=== PATIENT | female | born 1955 | race Caucasian/White ===

== ENCOUNTER → 2022-11-24 | Outpatient (REF) | payer MEDICARE, MEDICAID, SELFPAY ==
[2022-11-24 11:18] LABS: Hematocrit 31.5 % (37-47); Hemoglobin 10.1 g/dL (12.0-15.0); Mean Corp Hgb Conc 32.1 g/dL (32-36); Mean Corpuscular Hgb 29.4 pg (27.0-32.0); Mean Corpuscular Volume 91.6 fL (81-99); Mean Platelet Vol. 9.3 fl (6.2-12.0); Platelet Count 289 K/mm3 (150-450); RBC Distribution Width CV 15.1 % (11.6-14.6); RBC Distribution Width SD 49.4 fl (35.1-43.9); Red Blood Count 3.44 M/mm3 (4.2-5.4); White Blood Count 16.9 K/mm3 (4.4-11.0)
== END ==
LOC: OLS.SANC 10:30
PROVIDERS: Visit Provider Internal Medicine
DX: J44.9 Chronic obstructive pulmonary disease, unspecified (principal); E11.9 Type 2 diabetes mellitus without complications
CPT/HCPCS: 36415; 85027

== ENCOUNTER → 2022-11-27 | Outpatient (REF) | payer MEDICARE, MEDICAID, SELFPAY ==
[2022-11-27 09:17] LABS: Bacteria 0 SEEN /hpf (None Seen); Mucous, Urine 0 SEEN /hpf (<or=2+); Red Blood Cells-Urine 0 SEEN /hpf (0-5); Squamous Epithelial Cells - UA 0 SEEN /hpf (5-10); White Blood Cells 0 SEEN /hpf (0-5)
[2022-11-27 10:04] LABS: Glucose, Dipstick 250 mg/dl (Normal); Ketone-Dipstick Negative (Negative); Leukocyte Esterase-Dipstick Negative /ul (Negative); Nitrite-Dipstick Negative (Negative); Occult Blood-Urine Negative /ul (Negative); Protein-Dipstick 15 mg/dl (Negative); Specific Gravity, Urine 1.015 (1.002-1.030); Urine Bilirubin Dipstick Negative (Negative); Urine Urobilinogen Normal (Normal)
[2022-11-27 10:12] LABS: Color, Urine Yellow (Yellow); Urine Clarity Clear (Clear)
== END ==
LOC: OLS.SANC 04:00
PROVIDERS: Referring Provider Internal Medicine; Visit Provider Internal Medicine
DX: I11.0 Hypertensive heart disease with heart failure (principal); I50.9 Heart failure, unspecified; J44.9 Chronic obstructive pulmonary disease, unspecified; E11.9 Type 2 diabetes mellitus without complications; E78.5 Hyperlipidemia, unspecified; R39.9 Unspecified symptoms and signs involving the genitourinary system
CPT/HCPCS: 81001; 87077; 87086; 87088; 87186

== ENCOUNTER → 2022-11-28 | Outpatient (REF) | payer MEDICARE, MEDICAID, SELFPAY ==
[2022-11-28 09:24] LABS: Hematocrit 33.1 % (37-47); Hemoglobin 10.7 g/dL (12.0-15.0); Mean Corp Hgb Conc 32.3 g/dL (32-36); Mean Corpuscular Hgb 28.7 pg (27.0-32.0); Mean Corpuscular Volume 88.7 fL (81-99); Mean Platelet Vol. 9.8 fl (6.2-12.0); Platelet Count 264 K/mm3 (150-450); RBC Distribution Width CV 15.2 % (11.6-14.6); RBC Distribution Width SD 49.4 fl (35.1-43.9); Red Blood Count 3.73 M/mm3 (4.2-5.4); White Blood Count 12.5 K/mm3 (4.4-11.0)
[2022-11-28 09:48] LABS: ALB/GLOB Ratio 0.8 RATIO (0.9-2.4); AST(SGOT) 12 U/L (15-37); Alanine Aminotransfer ALT/SGPT 23 U/L (13-56); Albumin, Serum 2.5 g/dL (3.2-5.0); Alkaline Phosphatase 59 U/L (45-117); Anion Gap 8 (5-15); BUN 47 mg/dL (7-18); BUN/Creat Ratio 33.6 RATIO (10-20); Calcium,Total 8.4 mg/dL (8.5-10.1); Chloride 107 mmol/L (98-107); EST Glomerular Filtration Rate 40 mL/min (>60); Est Glom Filt Rate - Afr Amer 49 mL/min (>60); Globulin 3.3 g/dL (2.2-4.2); Glucose 219 mg/dL (74-106); Potassium 4.7 mmol/L (3.5-5.1); Protein, Total 5.8 g/dL (6.4-8.2); Sodium Level 142 mmol/L (136-145); Thyroid Stim Hormone (TSH) 1.48 uIU/mL (0.358-3.74)
== END ==
LOC: OLS.SANC 08:10
PROVIDERS: Visit Provider Internal Medicine
DX: R39.9 Unspecified symptoms and signs involving the genitourinary system (principal); I11.0 Hypertensive heart disease with heart failure; I50.9 Heart failure, unspecified; J44.9 Chronic obstructive pulmonary disease, unspecified; E11.9 Type 2 diabetes mellitus without complications; E78.5 Hyperlipidemia, unspecified
CPT/HCPCS: 36415; 80053; 84443; 85027

== ENCOUNTER → 2022-12-05 | Outpatient (REF) | payer MEDICARE, MEDICAID, SELFPAY ==
[2022-12-05 09:41] LABS: Hematocrit 32.9 % (37-47); Hemoglobin 10.1 g/dL (12.0-15.0); Mean Corp Hgb Conc 30.7 g/dL (32-36); Mean Corpuscular Hgb 29.3 pg (27.0-32.0); Mean Corpuscular Volume 95.4 fL (81-99); Mean Platelet Vol. 8.4 fl (6.2-12.0); Platelet Count 299 K/mm3 (150-450); RBC Distribution Width CV 16.4 % (11.6-14.6); RBC Distribution Width SD 57.4 fl (35.1-43.9); Red Blood Count 3.45 M/mm3 (4.2-5.4); White Blood Count 9.9 K/mm3 (4.4-11.0)
[2022-12-05 09:45] LABS: Anion Gap 5 (5-15); BUN 48 mg/dL (7-18); BUN/Creat Ratio 33.8 RATIO (10-20); Calcium,Total 8.2 mg/dL (8.5-10.1); Chloride 107 mmol/L (98-107); Creatinine, Serum 1.42 mg/dL (0.55-1.02); EST Glomerular Filtration Rate 39 mL/min (>60); Est Glom Filt Rate - Afr Amer 48 mL/min (>60); Glucose 133 mg/dL (74-106); Potassium 4.4 mmol/L (3.5-5.1); Sodium Level 143 mmol/L (136-145)
== END ==
LOC: OLS.SANC 05:00
PROVIDERS: Visit Provider Internal Medicine
DX: I11.0 Hypertensive heart disease with heart failure (principal); I50.9 Heart failure, unspecified; J44.9 Chronic obstructive pulmonary disease, unspecified; E11.9 Type 2 diabetes mellitus without complications; E78.5 Hyperlipidemia, unspecified
CPT/HCPCS: 36415; 80048; 85027

== ENCOUNTER → 2022-12-25 | Outpatient (REF) | payer MEDICARE, MEDICAID, SELFPAY ==
[2022-12-26 08:19] LABS: Bacteria 0 SEEN /hpf (None Seen); Mucous, Urine 0 SEEN /hpf (<or=2+); Red Blood Cells-Urine 0 SEEN /hpf (0-5); Squamous Epithelial Cells - UA 0 SEEN /hpf (5-10); White Blood Cells 0 SEEN /hpf (0-5)
[2022-12-26 08:51] LABS: Color, Urine Yellow (Yellow); Glucose, Dipstick Normal (Normal); Ketone-Dipstick Negative (Negative); Leukocyte Esterase-Dipstick Negative /ul (Negative); Nitrite-Dipstick Negative (Negative); Occult Blood-Urine Negative /ul (Negative); Protein-Dipstick 15 mg/dl (Negative); Urine Bilirubin Dipstick Negative (Negative); Urine Clarity Sl. Cloudy (Clear); Urine Urobilinogen Normal (Normal)
== END ==
LOC: OLS.SANC 11:25
PROVIDERS: Visit Provider Internal Medicine
DX: I11.0 Hypertensive heart disease with heart failure (principal); I50.9 Heart failure, unspecified; E11.9 Type 2 diabetes mellitus without complications; E78.5 Hyperlipidemia, unspecified; R39.89 Other symptoms and signs involving the genitourinary system
CPT/HCPCS: 81001

== ENCOUNTER → 2023-01-02 | Outpatient (REF) | payer MEDICARE, MEDICAID, SELFPAY ==
[2023-01-02 09:57] LABS: Hematocrit 30.3 % (37-47); Hemoglobin 9.4 g/dL (12.0-15.0); Mean Corpuscular Hgb 29.8 pg (27.0-32.0); Mean Corpuscular Volume 96.2 fL (81-99); Mean Platelet Vol. 9.2 fl (6.2-12.0); Platelet Count 286 K/mm3 (150-450); RBC Distribution Width CV 16.4 % (11.6-14.6); RBC Distribution Width SD 57.6 fl (35.1-43.9); Red Blood Count 3.15 M/mm3 (4.2-5.4)
== END ==
LOC: OLS.SANC 05:00
PROVIDERS: Visit Provider Internal Medicine
DX: I11.0 Hypertensive heart disease with heart failure (principal); I50.9 Heart failure, unspecified; J44.9 Chronic obstructive pulmonary disease, unspecified; E11.9 Type 2 diabetes mellitus without complications; E78.5 Hyperlipidemia, unspecified
CPT/HCPCS: 36415; 85027

== ENCOUNTER → 2023-01-05 | Outpatient (REF) | payer MEDICARE, MEDICAID, SELFPAY ==
[2023-01-05 08:34] LABS: Anion Gap 8 (5-15); BUN 41 mg/dL (7-18); BUN/Creat Ratio 29.9 RATIO (10-20); Calcium,Total 8.8 mg/dL (8.5-10.1); Chloride 103 mmol/L (98-107); Creatinine, Serum 1.37 mg/dL (0.55-1.02); EST Glomerular Filtration Rate 41 mL/min (>60); Est Glom Filt Rate - Afr Amer 50 mL/min (>60); Glucose 87 mg/dL (74-106); Potassium 4.5 mmol/L (3.5-5.1); Sodium Level 142 mmol/L (136-145)
== END ==
LOC: OLS.SANC 05:00
PROVIDERS: Visit Provider Internal Medicine
DX: I11.0 Hypertensive heart disease with heart failure (principal); I50.9 Heart failure, unspecified; J44.9 Chronic obstructive pulmonary disease, unspecified; E11.9 Type 2 diabetes mellitus without complications; E78.5 Hyperlipidemia, unspecified
CPT/HCPCS: 80048

== ENCOUNTER → 2023-01-10 | Outpatient (REF) | payer MEDICARE, MEDICAID, SELFPAY ==
[2023-01-10 08:09] LABS: Hematocrit 28.3 % (37-47); Hemoglobin 8.9 g/dL (12.0-15.0); Mean Corp Hgb Conc 31.4 g/dL (32-36); Mean Corpuscular Hgb 28.9 pg (27.0-32.0); Mean Corpuscular Volume 91.9 fL (81-99); Mean Platelet Vol. 8.9 fl (6.2-12.0); Platelet Count 286 K/mm3 (150-450); RBC Distribution Width CV 15.6 % (11.6-14.6); RBC Distribution Width SD 51.8 fl (35.1-43.9); Red Blood Count 3.08 M/mm3 (4.2-5.4); White Blood Count 7.7 K/mm3 (4.4-11.0)
[2023-01-10 08:31] LABS: Anion Gap 8 (5-15); BUN 31 mg/dL (7-18); BUN/Creat Ratio 23.5 RATIO (10-20); Calcium,Total 8.6 mg/dL (8.5-10.1); Chloride 103 mmol/L (98-107); Creatinine, Serum 1.32 mg/dL (0.55-1.02); EST Glomerular Filtration Rate 43 mL/min (>60); Est Glom Filt Rate - Afr Amer 52 mL/min (>60); Glucose 98 mg/dL (74-106); Potassium 4.2 mmol/L (3.5-5.1); Sodium Level 145 mmol/L (136-145)
== END ==
LOC: OLS.SANC 05:00
PROVIDERS: Visit Provider Internal Medicine
DX: I11.0 Hypertensive heart disease with heart failure (principal); I50.9 Heart failure, unspecified; J44.9 Chronic obstructive pulmonary disease, unspecified; E78.5 Hyperlipidemia, unspecified; E11.9 Type 2 diabetes mellitus without complications
CPT/HCPCS: 36415; 80048; 85027

== ENCOUNTER → 2023-01-17 | Outpatient (REF) | payer MEDICARE, MEDICAID, SELFPAY ==
[2023-01-17 09:57] LABS: Anion Gap 8 (5-15); BUN 24 mg/dL (7-18); Calcium,Total 8.6 mg/dL (8.5-10.1); Chloride 106 mmol/L (98-107); Creatinine, Serum 1.33 mg/dL (0.55-1.02); EST Glomerular Filtration Rate 43 mL/min (>60); Est Glom Filt Rate - Afr Amer 51 mL/min (>60); Glucose 131 mg/dL (74-106); Potassium 4.7 mmol/L (3.5-5.1); Sodium Level 142 mmol/L (136-145)
[2023-01-18 08:59] LABS: Hemoglobin 8.9 g/dL (12.0-15.0); Mean Corp Hgb Conc 29.7 g/dL (32-36); Mean Corpuscular Hgb 28.1 pg (27.0-32.0); Mean Corpuscular Volume 94.6 fL (81-99); Mean Platelet Vol. 9.6 fl (6.2-12.0); POSITIVE COUNT YES; POSITIVE MORPHOLOGY YES; Platelet Count 236 K/mm3 (150-450); RBC Distribution Width CV 15.9 % (11.6-14.6); RBC Distribution Width SD 55.1 fl (35.1-43.9); Red Blood Count 3.17 M/mm3 (4.2-5.4); White Blood Count 7.7 K/mm3 (4.4-11.0)
[2023-01-18 09:15] LABS: Differential Indicated MANUAL DIFF
[2023-01-18 09:39] LABS: Eosinophil 6 % (0-5); Lymphocyte 35 % (19-41); Monocyte 3 % (0-10); Neutrophil-Band 1 % (0-5); Neutrophil-Segmented 54 % (47-70); Plasma Cell 1 %; Total Cells Counted 100 (MANUAL DIFF)
[2023-01-18 09:40] LABS: Absolute Neutrophil Count 4.2 X10^3/uL (2.0-7.7); Neutrophil # 4.23 X10^3/uL (2.7-7.7); Platelet Estimate ADEQUATE (ADEQ); Red Cell Morphology NORM C+C NORMAL (NORM C&C)
[2023-01-18 09:41] LABS: Absolute Lymphocyte Count 2.69 X10^3/uL (0.83-4.51); Lymphocyte # 2.69 X10^3/ul (0.83-4.51)
[2023-01-19 09:36] LABS: Pathologist Review Reviewed
== END ==
LOC: OLS.SANC 05:00
PROVIDERS: Visit Provider Internal Medicine
DX: I10 Essential (primary) hypertension (principal)
CPT/HCPCS: 36415; 80048; 85025

== ENCOUNTER → 2023-01-26 | Outpatient (REF) | payer MEDICARE, MEDICAID, SELFPAY ==
[2023-01-26 07:56] LABS: Hematocrit 29.8 % (37-47); Hemoglobin 9.5 g/dL (12.0-15.0); Mean Corp Hgb Conc 31.9 g/dL (32-36); Mean Corpuscular Hgb 27.7 pg (27.0-32.0); Mean Corpuscular Volume 86.9 fL (81-99); Mean Platelet Vol. 11.1 fl (6.2-12.0); Platelet Count 298 K/mm3 (150-450); RBC Distribution Width CV 16.9 % (11.6-14.6); RBC Distribution Width SD 53.3 fl (35.1-43.9); Red Blood Count 3.43 M/mm3 (4.2-5.4); White Blood Count 9.9 K/mm3 (4.4-11.0)
[2023-01-26 08:02] LABS: Anion Gap 6 (5-15); BUN 26 mg/dL (7-18); Calcium,Total 8.8 mg/dL (8.5-10.1); Chloride 102 mmol/L (98-107); Creatinine, Serum 1.18 mg/dL (0.55-1.02); EST Glomerular Filtration Rate 49 mL/min (>60); Est Glom Filt Rate - Afr Amer 59 mL/min (>60); Glucose 191 mg/dL (74-106); Potassium 4.3 mmol/L (3.5-5.1); Sodium Level 137 mmol/L (136-145)
== END ==
LOC: OLS.SANC 05:00
PROVIDERS: Visit Provider Internal Medicine
DX: I11.0 Hypertensive heart disease with heart failure (principal); I50.9 Heart failure, unspecified; J44.9 Chronic obstructive pulmonary disease, unspecified; E78.5 Hyperlipidemia, unspecified; E11.9 Type 2 diabetes mellitus without complications
CPT/HCPCS: 36415; 80048; 85027

== ENCOUNTER → 2023-02-02 | Outpatient (REF) | payer MEDICARE, MEDICAID, SELFPAY ==
[2023-02-02 08:08] LABS: Hematocrit 27.3 % (37-47); Hemoglobin 10.2 g/dL (12.0-15.0); Mean Corp Hgb Conc 37.4 g/dL (32-36); Mean Corpuscular Hgb 36.4 pg (27.0-32.0); Mean Corpuscular Volume 97.5 fL (81-99); Mean Platelet Vol. 11.3 fl (6.2-12.0); Platelet Count 165 K/mm3 (150-450); RBC Distribution Width CV 16.4 % (11.6-14.6); RBC Distribution Width SD 53.1 fl (35.1-43.9); White Blood Count 7.4 K/mm3 (4.4-11.0)
[2023-02-02 08:25] LABS: Anion Gap 5 (5-15); BUN 33 mg/dL (7-18); BUN/Creat Ratio 27.7 RATIO (10-20); Calcium,Total 8.6 mg/dL (8.5-10.1); Chloride 106 mmol/L (98-107); Creatinine, Serum 1.19 mg/dL (0.55-1.02); EST Glomerular Filtration Rate 48 mL/min (>60); Est Glom Filt Rate - Afr Amer 59 mL/min (>60); Glucose 196 mg/dL (74-106); Potassium 4.6 mmol/L (3.5-5.1); Sodium Level 139 mmol/L (136-145)
== END ==
LOC: OLS.SANC 05:00
PROVIDERS: Visit Provider Internal Medicine
DX: I11.0 Hypertensive heart disease with heart failure (principal); I50.9 Heart failure, unspecified; J44.9 Chronic obstructive pulmonary disease, unspecified; E11.9 Type 2 diabetes mellitus without complications; E78.5 Hyperlipidemia, unspecified
CPT/HCPCS: 36415; 80048; 85027

== ENCOUNTER → 2023-02-19 | Outpatient (REF) | payer MEDICARE, MEDICAID, SELFPAY ==
[2023-02-19 10:27] LABS: Hematocrit 29.6 % (37-47); Hemoglobin 8.4 g/dL (12.0-15.0); Mean Corp Hgb Conc 28.4 g/dL (32-36); Mean Corpuscular Volume 98.7 fL (81-99); Mean Platelet Vol. 8.7 fl (6.2-12.0); Platelet Count 353 K/mm3 (150-450); RBC Distribution Width CV 14.9 % (11.6-14.6); RBC Distribution Width SD 53.8 fl (35.1-43.9); White Blood Count 7.3 K/mm3 (4.4-11.0)
[2023-02-19 10:46] LABS: ALB/GLOB Ratio 0.8 RATIO (0.9-2.4); AST(SGOT) 14 U/L (15-37); Alanine Aminotransfer ALT/SGPT 15 U/L (13-56); Albumin, Serum 2.6 g/dL (3.2-5.0); Alkaline Phosphatase 53 U/L (45-117); Anion Gap 6 (5-15); BUN 17 mg/dL (7-18); BUN/Creat Ratio 12.5 RATIO (10-20); Calcium,Total 8.8 mg/dL (8.5-10.1); Chloride 97 mmol/L (98-107); Creatinine, Serum 1.36 mg/dL (0.55-1.02); EST Glomerular Filtration Rate 41 mL/min (>60); Est Glom Filt Rate - Afr Amer 50 mL/min (>60); Globulin 3.3 g/dL (2.2-4.2); Glucose 155 mg/dL (74-106); Potassium 3.3 mmol/L (3.5-5.1); Protein, Total 5.9 g/dL (6.4-8.2); Sodium Level 139 mmol/L (136-145)
== END ==
LOC: OLS.SANC 04:00
PROVIDERS: Referring Provider Internal Medicine; Visit Provider Internal Medicine
DX: I11.0 Hypertensive heart disease with heart failure (principal); I50.9 Heart failure, unspecified; J44.9 Chronic obstructive pulmonary disease, unspecified; E78.5 Hyperlipidemia, unspecified; E11.9 Type 2 diabetes mellitus without complications; Z79.899 Other long term (current) drug therapy
CPT/HCPCS: 36415; 80053; 85027

== ENCOUNTER → 2023-02-20 | Outpatient (REF) | payer MEDICARE, MEDICAID, SELFPAY ==
[2023-02-20 08:18] LABS: Mucous, Urine 0 SEEN /hpf (<or=2+); Red Blood Cells-Urine 0 SEEN /hpf (0-5)
[2023-02-20 08:50] LABS: Color, Urine Yellow (Yellow); Glucose, Dipstick 50 mg/dl (Normal); Ketone-Dipstick 50 mg/dl (Negative); Leukocyte Esterase-Dipstick 25 /ul (Negative); Nitrite-Dipstick Negative (Negative); Occult Blood-Urine Negative /ul (Negative); Protein-Dipstick 15 mg/dl (Negative); Urine Bilirubin Dipstick Negative (Negative); Urine Clarity Clear (Clear); Urine Urobilinogen Normal (Normal)
[2023-02-20 10:49] LABS: Bacteria 1+ /hpf (None Seen); Calcium Oxalate Crystals Ur 1+ /hpf (<or=2+); Squamous Epithelial Cells - UA 0-5 SEEN /hpf (5-10); White Blood Cells 0-5 SEEN /hpf (0-5)
== END ==
LOC: OLS.SANC 00:30
PROVIDERS: Visit Provider Internal Medicine
DX: R41.82 Altered mental status, unspecified (principal); G93.40 Encephalopathy, unspecified
CPT/HCPCS: 81001; 87077; 87086; 87088; 87186

== ENCOUNTER → 2023-02-26 | Outpatient (REF) | payer MEDICARE, MEDICAID, SELFPAY ==
[2023-02-26 09:16] LABS: Anion Gap 7 (5-15); BUN 23 mg/dL (7-18); BUN/Creat Ratio 26.9 RATIO (10-20); Calcium,Total 8.4 mg/dL (8.5-10.1); Chloride 106 mmol/L (98-107); Creatinine, Serum 0.86 mg/dL (0.55-1.02); EST Glomerular Filtration Rate 71 mL/min (>60); Est Glom Filt Rate - Afr Amer 86 mL/min (>60); Glucose 216 mg/dL (74-106); Hematocrit 32.8 % (37-47); Hemoglobin 10.1 g/dL (12.0-15.0); Mean Corp Hgb Conc 30.8 g/dL (32-36); Mean Corpuscular Hgb 29.5 pg (27.0-32.0); Mean Corpuscular Volume 95.9 fL (81-99); Mean Platelet Vol. 9.8 fl (6.2-12.0); Platelet Count 294 K/mm3 (150-450); Potassium 4.1 mmol/L (3.5-5.1); RBC Distribution Width CV 14.1 % (11.6-14.6); RBC Distribution Width SD 49.3 fl (35.1-43.9); Red Blood Count 3.42 M/mm3 (4.2-5.4); Sodium Level 138 mmol/L (136-145); White Blood Count 8.3 K/mm3 (4.4-11.0)
== END ==
LOC: OLS.SANC 05:00
PROVIDERS: Visit Provider Internal Medicine
DX: N39.0 Urinary tract infection, site not specified (principal)
CPT/HCPCS: 36415; 80048; 80170; 85027

== ENCOUNTER → 2023-02-27 | Outpatient (REF) | payer MEDICARE, MEDICAID, SELFPAY ==
[2023-02-27 07:46] LABS: Gentamicin, Conv. Trough 4.1 ug/mL (<2.0)
[2023-03-05 05:32] LABS: Cholesterol 173 mg/dL (200); High Density Lipoprotein 56 mg/dL; Triglycerides 152 mg/dL; Very Low Density Lipoprotein 30 mg/dL (5-40)
[2023-03-05 08:24] LABS: Vitamin B12 444 pg/mL (211-911); Vitamin D,25 Hydroxy 29.2 ng/mL
== END ==
LOC: OLS.SANC 05:30
PROVIDERS: Visit Provider Internal Medicine
DX: I11.0 Hypertensive heart disease with heart failure (principal); I50.9 Heart failure, unspecified; J44.9 Chronic obstructive pulmonary disease, unspecified; E78.5 Hyperlipidemia, unspecified; E11.9 Type 2 diabetes mellitus without complications; R39.9 Unspecified symptoms and signs involving the genitourinary system; E55.9 Vitamin D deficiency, unspecified
CPT/HCPCS: 36415; 80061; 80170; 82306; 82607; 82746; 84443

== ENCOUNTER → 2023-03-13 | Outpatient (REF) | payer MEDICARE, MEDICAID, SELFPAY ==
[2023-03-13 08:57] LABS: Hematocrit 31.4 % (37-47); Hemoglobin 9.2 g/dL (12.0-15.0); Mean Corp Hgb Conc 29.3 g/dL (32-36); Mean Corpuscular Hgb 27.5 pg (27.0-32.0); Mean Platelet Vol. 8.7 fl (6.2-12.0); Platelet Count 265 K/mm3 (150-450); RBC Distribution Width CV 13.8 % (11.6-14.6); RBC Distribution Width SD 47.4 fl (35.1-43.9); Red Blood Count 3.34 M/mm3 (4.2-5.4); White Blood Count 7.8 K/mm3 (4.4-11.0)
[2023-03-13 09:02] LABS: Anion Gap 7 (5-15); BUN 30 mg/dL (7-18); BUN/Creat Ratio 20.1 RATIO (10-20); Calcium,Total 9.1 mg/dL (8.5-10.1); Chloride 103 mmol/L (98-107); Creatinine, Serum 1.49 mg/dL (0.55-1.02); EST Glomerular Filtration Rate 37 mL/min (>60); Est Glom Filt Rate - Afr Amer 45 mL/min (>60); Glucose 153 mg/dL (74-106); Potassium 4.1 mmol/L (3.5-5.1); Sodium Level 141 mmol/L (136-145)
== END ==
LOC: OLS.SANC 05:00
PROVIDERS: Visit Provider Internal Medicine
DX: I11.0 Hypertensive heart disease with heart failure (principal); I50.9 Heart failure, unspecified; J44.9 Chronic obstructive pulmonary disease, unspecified; E11.9 Type 2 diabetes mellitus without complications; E78.5 Hyperlipidemia, unspecified
CPT/HCPCS: 36415; 80048; 85027

== ENCOUNTER → 2023-03-20 | Outpatient (REF) | payer MEDICARE, MEDICAID, SELFPAY ==
[2023-03-20 08:25] LABS: Hemoglobin 9.1 g/dL (12.0-15.0); Mean Corp Hgb Conc 30.3 g/dL (32-36); Mean Corpuscular Volume 92.3 fL (81-99); Mean Platelet Vol. 8.2 fl (6.2-12.0); Platelet Count 267 K/mm3 (150-450); RBC Distribution Width CV 14.2 % (11.6-14.6); RBC Distribution Width SD 48.1 fl (35.1-43.9); Red Blood Count 3.25 M/mm3 (4.2-5.4)
[2023-03-20 09:00] LABS: Anion Gap 5 (5-15); BUN 29 mg/dL (7-18); BUN/Creat Ratio 19.2 RATIO (10-20); Calcium,Total 8.9 mg/dL (8.5-10.1); Chloride 101 mmol/L (98-107); Creatinine, Serum 1.51 mg/dL (0.55-1.02); EST Glomerular Filtration Rate 37 mL/min (>60); Est Glom Filt Rate - Afr Amer 44 mL/min (>60); Glucose 96 mg/dL (74-106); Potassium 3.9 mmol/L (3.5-5.1); Sodium Level 139 mmol/L (136-145)
== END ==
LOC: OLS.SANC 06:55
PROVIDERS: Visit Provider Internal Medicine
DX: E11.9 Type 2 diabetes mellitus without complications (principal); I10 Essential (primary) hypertension
CPT/HCPCS: 36415; 80048; 85027

== ENCOUNTER → 2023-03-30 | Outpatient (REF) | payer MEDICARE, MEDICAID, SELFPAY ==
[2023-03-30 08:43] LABS: Cholesterol 136 mg/dL (200); High Density Lipoprotein 41 mg/dL; Triglycerides 141 mg/dL; Very Low Density Lipoprotein 28 mg/dL (5-40)
[2023-03-30 08:49] LABS: Hemoglobin A1c 7.3 % (3.8-5.6)
== END ==
LOC: OLS.SANC 05:00
PROVIDERS: Visit Provider Internal Medicine
DX: E11.9 Type 2 diabetes mellitus without complications (principal); E78.5 Hyperlipidemia, unspecified
CPT/HCPCS: 36415; 80061; 83036

== ENCOUNTER → 2023-04-04 | Outpatient (REF) | payer MEDICARE, MEDICAID, SELFPAY ==
[2023-04-04 09:44] LABS: Hematocrit 32.9 % (37-47); Hemoglobin 11.5 g/dL (12.0-15.0); Mean Corpuscular Hgb 33.7 pg (27.0-32.0); Mean Corpuscular Volume 96.5 fL (81-99); Mean Platelet Vol. 9.7 fl (6.2-12.0); Platelet Count 260 K/mm3 (150-450); RBC Distribution Width CV 15.4 % (11.6-14.6); RBC Distribution Width SD 47.2 fl (35.1-43.9); Red Blood Count 3.41 M/mm3 (4.2-5.4); White Blood Count 8.4 K/mm3 (4.4-11.0)
[2023-04-04 10:25] LABS: Anion Gap 8 (5-15); BUN 35 mg/dL (7-18); BUN/Creat Ratio 29.4 RATIO (10-20); Calcium,Total 9.2 mg/dL (8.5-10.1); Chloride 102 mmol/L (98-107); Creatinine, Serum 1.19 mg/dL (0.55-1.02); EST Glomerular Filtration Rate 48 mL/min (>60); Est Glom Filt Rate - Afr Amer 58 mL/min (>60); Glucose 237 mg/dL (74-106); Potassium 4.7 mmol/L (3.5-5.1); Sodium Level 137 mmol/L (136-145)
== END ==
LOC: OLS.SANC 05:00
PROVIDERS: Visit Provider Internal Medicine
DX: E11.9 Type 2 diabetes mellitus without complications (principal); I10 Essential (primary) hypertension
CPT/HCPCS: 36415; 80048; 85027

== ENCOUNTER → 2023-05-21 | Outpatient (REF) | payer MEDICARE, MEDICAID, SELFPAY ==
[2023-05-21 07:29] LABS: Bacteria 0 SEEN /hpf (None Seen); Mucous, Urine 0 SEEN /hpf (<or=2+); Red Blood Cells-Urine 0 SEEN /hpf (0-5); Squamous Epithelial Cells - UA 0 SEEN /hpf (5-10)
[2023-05-21 08:13] LABS: Color, Urine Yellow (Yellow); Glucose, Dipstick Normal (Normal); Ketone-Dipstick 15 mg/dl (Negative); Leukocyte Esterase-Dipstick 25 /ul (Negative); Nitrite-Dipstick Negative (Negative); Occult Blood-Urine Negative /ul (Negative); Protein-Dipstick 15 mg/dl (Negative); Specific Gravity, Urine 1.015 (1.002-1.030); Urine Bilirubin Dipstick Negative (Negative); Urine Clarity Clear (Clear); Urine Urobilinogen Normal (Normal)
[2023-05-21 09:00] LABS: White Blood Cells 0-5 SEEN /hpf (0-5)
== END ==
LOC: OLS.SANC 06:30
PROVIDERS: Visit Provider Internal Medicine
DX: R35.0 Frequency of micturition (principal); R41.0 Disorientation, unspecified
CPT/HCPCS: 81001; 87077; 87086; 87088

== ENCOUNTER → 2023-06-29 | Outpatient (REF) | payer MEDICARE, MEDICAID, SELFPAY ==
[2023-06-29 10:56] LABS: Color, Urine Yellow (Yellow); Glucose, Dipstick Normal (Normal); Ketone-Dipstick Negative (Negative); Leukocyte Esterase-Dipstick Negative /ul (Negative); Nitrite-Dipstick Negative (Negative); Occult Blood-Urine Negative /ul (Negative); Protein-Dipstick Negative (Negative); Specific Gravity, Urine 1.015 (1.002-1.030); Urine Bilirubin Dipstick Negative (Negative); Urine Clarity Clear (Clear); Urine Urobilinogen Normal (Normal)
== END ==
LOC: OLS.SANC 02:00
PROVIDERS: Visit Provider Internal Medicine
DX: N39.0 Urinary tract infection, site not specified (principal)
CPT/HCPCS: 81002; 87077; 87086; 87088; 87186

== ENCOUNTER → 2023-07-03 | Outpatient (REF) | payer MEDICARE, MEDICAID, SELFPAY ==
[2023-07-03 08:49] LABS: Hemoglobin 9.6 g/dL (12.0-15.0); Mean Corpuscular Hgb 29.2 pg (27.0-32.0); Mean Corpuscular Volume 94.2 fL (81-99); Mean Platelet Vol. 8.2 fl (6.2-12.0); Platelet Count 314 K/mm3 (150-450); RBC Distribution Width CV 13.3 % (11.6-14.6); Red Blood Count 3.29 M/mm3 (4.2-5.4); White Blood Count 6.9 K/mm3 (4.4-11.0)
[2023-07-03 09:12] LABS: ALB/GLOB Ratio 0.6 RATIO (0.9-2.4); AST(SGOT) 10 U/L (15-37); Alanine Aminotransfer ALT/SGPT 13 U/L (13-56); Albumin, Serum 2.4 g/dL (3.2-5.0); Alkaline Phosphatase 74 U/L (45-117); Anion Gap 6 (5-15); BUN 34 mg/dL (7-18); BUN/Creat Ratio 23.8 RATIO (10-20); Calcium,Total 8.6 mg/dL (8.5-10.1); Chloride 103 mmol/L (98-107); Creatinine, Serum 1.43 mg/dL (0.55-1.02); EST Glomerular Filtration Rate 39 mL/min (>60); Est Glom Filt Rate - Afr Amer 47 mL/min (>60); Globulin 3.7 g/dL (2.2-4.2); Glucose 110 mg/dL (74-106); Potassium 3.6 mmol/L (3.5-5.1); Protein, Total 6.1 g/dL (6.4-8.2); Sodium Level 140 mmol/L (136-145); Thyroid Stim Hormone (TSH) 4.21 uIU/mL (0.358-3.74)
[2023-07-03 10:42] LABS: Hemoglobin A1c 6.7 % (3.8-5.6)
== END ==
LOC: OLS.SANC 04:00
PROVIDERS: Visit Provider Internal Medicine
DX: J44.9 Chronic obstructive pulmonary disease, unspecified (principal); E11.9 Type 2 diabetes mellitus without complications
CPT/HCPCS: 36415; 80053; 83036; 84443; 85027

== ENCOUNTER → 2023-07-16 | Outpatient (REF) | payer MEDICARE, MEDICAID, SELFPAY ==
[2023-07-16 08:06] LABS: Mucous, Urine 0 SEEN /hpf (<or=2+)
[2023-07-16 08:23] LABS: Color, Urine Yellow (Yellow); Glucose, Dipstick Normal (Normal); Ketone-Dipstick Negative (Negative); Leukocyte Esterase-Dipstick 25 /ul (Negative); Nitrite-Dipstick Negative (Negative); Occult Blood-Urine 10 /ul (Negative); Protein-Dipstick 15 mg/dl (Negative); Specific Gravity, Urine 1.015 (1.002-1.030); Urine Bilirubin Dipstick Negative (Negative); Urine Clarity Sl. Cloudy (Clear); Urine Urobilinogen Normal (Normal)
[2023-07-16 08:34] LABS: Bacteria 1+ /hpf (None Seen); Red Blood Cells-Urine 0-5 SEEN /hpf (0-5); Squamous Epithelial Cells - UA 5-10 SEEN /hpf (5-10); White Blood Cells 0-5 SEEN /hpf (0-5)
== END ==
LOC: OLS.SANC 02:00
PROVIDERS: Visit Provider Internal Medicine
DX: Z79.899 Other long term (current) drug therapy (principal)
CPT/HCPCS: 81001; 87086; 87088

== ENCOUNTER → 2023-08-02 | Outpatient (REF) | payer MEDICARE, MEDICAID, SELFPAY ==
[2023-08-02 09:09] LABS: Hematocrit 36.4 % (37-47); Hemoglobin 10.3 g/dL (12.0-15.0); Mean Corp Hgb Conc 28.3 g/dL (32-36); Mean Corpuscular Hgb 28.1 pg (27.0-32.0); Mean Corpuscular Volume 99.5 fL (81-99); Mean Platelet Vol. 8.9 fl (6.2-12.0); Platelet Count 257 K/mm3 (150-450); RBC Distribution Width CV 13.1 % (11.6-14.6); RBC Distribution Width SD 48.1 fl (35.1-43.9); Red Blood Count 3.66 M/mm3 (4.2-5.4); White Blood Count 5.4 K/mm3 (4.4-11.0)
[2023-08-02 09:11] LABS: ALB/GLOB Ratio 0.5 RATIO (0.9-2.4); AST(SGOT) 8 U/L (15-37); Alanine Aminotransfer ALT/SGPT 13 U/L (13-56); Albumin, Serum 1.9 g/dL (3.2-5.0); Alkaline Phosphatase 77 U/L (45-117); Anion Gap 6 (5-15); BUN 22 mg/dL (7-18); BUN/Creat Ratio 17.6 RATIO (10-20); Calcium,Total 8.6 mg/dL (8.5-10.1); Chloride 104 mmol/L (98-107); Creatinine, Serum 1.25 mg/dL (0.55-1.02); EST Glomerular Filtration Rate 46 mL/min (>60); Est Glom Filt Rate - Afr Amer 55 mL/min (>60); Globulin 3.9 g/dL (2.2-4.2); Glucose 370 mg/dL (74-106); Potassium 4.4 mmol/L (3.5-5.1); Protein, Total 5.8 g/dL (6.4-8.2); Sodium Level 138 mmol/L (136-145)
== END ==
LOC: OLS.SANC 05:00
PROVIDERS: Visit Provider Internal Medicine
DX: J44.9 Chronic obstructive pulmonary disease, unspecified (principal); E11.9 Type 2 diabetes mellitus without complications; I10 Essential (primary) hypertension
CPT/HCPCS: 36415; 80053; 85027

== ENCOUNTER → 2023-10-04 | Outpatient (REF) | payer MEDICARE, MEDICAID, SELFPAY ==
[2023-10-04 10:07] LABS: Hemoglobin A1c 7.1 % (3.8-5.6)
== END ==
LOC: OLS.SANC 05:00
PROVIDERS: Visit Provider Internal Medicine
DX: I11.0 Hypertensive heart disease with heart failure (principal); I50.9 Heart failure, unspecified; J44.9 Chronic obstructive pulmonary disease, unspecified; E78.5 Hyperlipidemia, unspecified; E11.9 Type 2 diabetes mellitus without complications
CPT/HCPCS: 36415; 83036

== ENCOUNTER → 2023-12-10 | Outpatient (REF) | payer MEDICARE, MEDICAID, SELFPAY ==
[2023-12-10 09:58] LABS: Mucous, Urine 0 SEEN /hpf (<or=2+); Red Blood Cells-Urine 0 SEEN /hpf (0-5)
[2023-12-10 11:16] LABS: Color, Urine Straw (Yellow); Glucose, Dipstick Normal (Normal); Ketone-Dipstick Negative (Negative); Leukocyte Esterase-Dipstick 25 /ul (Negative); Nitrite-Dipstick Negative (Negative); Occult Blood-Urine Negative /ul (Negative); Protein-Dipstick Negative (Negative); Specific Gravity, Urine 1.005 (1.002-1.030); Urine Bilirubin Dipstick Negative (Negative); Urine Clarity Clear (Clear); Urine Urobilinogen Normal (Normal)
[2023-12-10 11:50] LABS: Bacteria 1+ /hpf (None Seen); Squamous Epithelial Cells - UA 0-5 SEEN /hpf (5-10); White Blood Cells 0-5 SEEN /hpf (0-5)
== END ==
LOC: OLS.SANC 03:00
PROVIDERS: Visit Provider Internal Medicine
DX: R41.82 Altered mental status, unspecified (principal); R39.9 Unspecified symptoms and signs involving the genitourinary system
CPT/HCPCS: 81001; 87077; 87086; 87088; 87186

== ENCOUNTER → 2023-12-31 | Outpatient (REF) | payer MEDICARE, MEDICAID, SELFPAY ==
[2023-12-31 10:37] LABS: Hemoglobin A1c 6.1 % (3.8-5.6)
== END ==
LOC: OLS.SANC 05:00
PROVIDERS: Visit Provider Internal Medicine
DX: E11.9 Type 2 diabetes mellitus without complications (principal)
CPT/HCPCS: 36415; 83036

== ENCOUNTER → 2024-02-08 | Outpatient (REF) | payer MEDICARE, MEDICAID, SELFPAY ==
[2024-02-08 09:28] LABS: Color, Urine Yellow (Yellow); Glucose, Dipstick 250 mg/dl (Normal); Ketone-Dipstick 5 mg/dl (Negative); Leukocyte Esterase-Dipstick Negative /ul (Negative); Nitrite-Dipstick Negative (Negative); Occult Blood-Urine Negative /ul (Negative); Protein-Dipstick 15 mg/dl (Negative); Specific Gravity, Urine 1.015 (1.002-1.030); Urine Bilirubin Dipstick Negative (Negative); Urine Clarity Clear (Clear); Urine Urobilinogen Normal (Normal)
== END ==
LOC: OLS.SANC 09:14
PROVIDERS: Visit Provider Internal Medicine
DX: N39.0 Urinary tract infection, site not specified (principal)
CPT/HCPCS: 81002; 87077; 87086; 87088; 87186

== ENCOUNTER → 2024-03-04 | Outpatient (REF) | payer MEDICARE, MEDICAID, SELFPAY ==
[2024-03-04 08:40] LABS: Absolute Lymphocyte Count 2.39 X10^3/uL (0.83-4.51); Absolute Neutrophil Count 3.3 X10^3/uL (2.0-7.7); Basophil# 0.05 X10^3/uL; Basophil% 0.7 % (0-1); Eosinophil# 0.34 X10^3/uL; Eosinophils% 4.9 % (0-5); Hematocrit 27.9 % (37-47); Hemoglobin 8.4 g/dL (12.0-15.0); Lymphocyte # 2.39 X10^3/ul (0.83-4.51); Lymphocyte % 34.1 % (19-41); Mean Corp Hgb Conc 30.1 g/dL (32-36); Mean Corpuscular Hgb 28.7 pg (27.0-32.0); Mean Corpuscular Volume 95.2 fL (81-99); Mean Platelet Vol. 8.4 fl (6.2-12.0); Monocyte# 0.69 X10^3/uL; Monocyte% 9.8 % (0-10); NRBC Flagged by Analyzer 0 % (0-5); Neutrophil # 3.26 X10^3/uL (2.7-7.7); Neutrophil % 46.5 % (47-70); Platelet Count 330 K/mm3 (150-450); RBC Distribution Width CV 16.3 % (11.6-14.6); RBC Distribution Width SD 54.7 fl (35.1-43.9); Red Blood Count 2.93 M/mm3 (4.2-5.4)
[2024-03-04 09:01] LABS: Anion Gap 3 (5-15); BUN 21 mg/dL (7-18); BUN/Creat Ratio 19.3 RATIO (10-20); Calcium,Total 8.5 mg/dL (8.5-10.1); Chloride 109 mmol/L (98-107); Creatinine, Serum 1.09 mg/dL (0.55-1.02); EST Glomerular Filtration Rate 53 mL/min (>60); Est Glom Filt Rate - Afr Amer 65 mL/min (>60); Glucose 76 mg/dL (74-106); Potassium 4.3 mmol/L (3.5-5.1); Sodium Level 140 mmol/L (136-145)
== END ==
LOC: OLS.SANC 05:00
PROVIDERS: Visit Provider Internal Medicine
DX: I10 Essential (primary) hypertension (principal); J44.9 Chronic obstructive pulmonary disease, unspecified; Z79.899 Other long term (current) drug therapy
CPT/HCPCS: 36415; 80048; 85025

== ENCOUNTER → 2024-03-11 | Outpatient (REF) | payer MEDICARE, MEDICAID, SELFPAY ==
[2024-03-11 09:36] LABS: Absolute Lymphocyte Count 1.92 X10^3/uL (0.83-4.51); Absolute Neutrophil Count 2.5 X10^3/uL (2.0-7.7); Basophil# 0.05 X10^3/uL; Basophil% 0.9 % (0-1); Eosinophils% 5.7 % (0-5); Hematocrit 30.4 % (37-47); Hemoglobin 9.2 g/dL (12.0-15.0); Lymphocyte # 1.92 X10^3/ul (0.83-4.51); Lymphocyte % 36.4 % (19-41); Mean Corp Hgb Conc 30.3 g/dL (32-36); Mean Corpuscular Hgb 29.1 pg (27.0-32.0); Mean Corpuscular Volume 96.2 fL (81-99); Mean Platelet Vol. 9.1 fl (6.2-12.0); Monocyte# 0.45 X10^3/uL; Monocyte% 8.5 % (0-10); NRBC Flagged by Analyzer 0 % (0-5); Neutrophil % 47.6 % (47-70); Platelet Count 271 K/mm3 (150-450); RBC Distribution Width SD 59.4 fl (35.1-43.9); Red Blood Count 3.16 M/mm3 (4.2-5.4); White Blood Count 5.3 K/mm3 (4.4-11.0)
[2024-03-11 09:45] LABS: Anion Gap 3 (5-15); BUN 22 mg/dL (7-18); BUN/Creat Ratio 18.5 RATIO (10-20); Calcium,Total 8.5 mg/dL (8.5-10.1); Chloride 105 mmol/L (98-107); Creatinine, Serum 1.19 mg/dL (0.55-1.02); EST Glomerular Filtration Rate 48 mL/min (>60); Est Glom Filt Rate - Afr Amer 58 mL/min (>60); Glucose 135 mg/dL (74-106); Potassium 4.4 mmol/L (3.5-5.1); Sodium Level 138 mmol/L (136-145)
== END ==
LOC: OLS.SANC 06:25
PROVIDERS: Visit Provider Internal Medicine
DX: I11.0 Hypertensive heart disease with heart failure (principal); I50.22 Chronic systolic (congestive) heart failure; E11.9 Type 2 diabetes mellitus without complications
CPT/HCPCS: 36415; 80048; 85025

== ENCOUNTER → 2024-03-12 | Outpatient (REF) | payer MEDICARE, MEDICAID, SELFPAY ==
[2024-03-12 07:15] LABS: Hematocrit 30.3 % (37-47); Hemoglobin 9.1 g/dL (12.0-15.0); Mean Corpuscular Hgb 28.5 pg (27.0-32.0); Mean Platelet Vol. 9.1 fl (6.2-12.0); Platelet Count 287 K/mm3 (150-450); RBC Distribution Width CV 16.8 % (11.6-14.6); RBC Distribution Width SD 58.4 fl (35.1-43.9); Red Blood Count 3.19 M/mm3 (4.2-5.4); White Blood Count 6.9 K/mm3 (4.4-11.0)
[2024-03-12 07:43] LABS: ALB/GLOB Ratio 0.8 RATIO (0.9-2.4); AST(SGOT) 14 U/L (15-37); Alanine Aminotransfer ALT/SGPT 25 U/L (13-56); Albumin, Serum 2.5 g/dL (3.2-5.0); Alkaline Phosphatase 91 U/L (45-117); Anion Gap 4 (5-15); BUN 25 mg/dL (7-18); BUN/Creat Ratio 20.2 RATIO (10-20); Calcium,Total 8.7 mg/dL (8.5-10.1); Chloride 98 mmol/L (98-107); Creatinine, Serum 1.24 mg/dL (0.55-1.02); EST Glomerular Filtration Rate 46 mL/min (>60); Est Glom Filt Rate - Afr Amer 56 mL/min (>60); Globulin 3.2 g/dL (2.2-4.2); Glucose 199 mg/dL (74-106); Potassium 4.2 mmol/L (3.5-5.1); Protein, Total 5.7 g/dL (6.4-8.2); Sodium Level 135 mmol/L (136-145)
== END ==
LOC: OLS.SANC 04:00
PROVIDERS: Referring Provider Internal Medicine; Visit Provider Internal Medicine
DX: E11.9 Type 2 diabetes mellitus without complications (principal); Z79.899 Other long term (current) drug therapy
CPT/HCPCS: 36415; 80053; 85027

== ENCOUNTER → 2024-03-17 | Outpatient (REF) | payer MEDICARE, MEDICAID, SELFPAY ==
[2024-03-17 10:30] LABS: Bacteria 0 SEEN /hpf (None Seen); Mucous, Urine 0 SEEN /hpf (<or=2+); Red Blood Cells-Urine 0 SEEN /hpf (0-5); White Blood Cells 0 SEEN /hpf (0-5)
[2024-03-17 10:48] LABS: Color, Urine Straw (Yellow); Glucose, Dipstick 50 mg/dl (Normal); Ketone-Dipstick Negative (Negative); Leukocyte Esterase-Dipstick 500 /ul (Negative); Nitrite-Dipstick Negative (Negative); Occult Blood-Urine 10 /ul (Negative); Protein-Dipstick Negative (Negative); Urine Bilirubin Dipstick Negative (Negative); Urine Clarity Sl. Cloudy (Clear); Urine Urobilinogen Normal (Normal)
[2024-03-17 11:10] LABS: Squamous Epithelial Cells - UA 5-10 SEEN /hpf (5-10)
== END ==
LOC: OLS.SANC 05:00
PROVIDERS: Visit Provider Internal Medicine
DX: R41.82 Altered mental status, unspecified (principal); I11.0 Hypertensive heart disease with heart failure; I50.9 Heart failure, unspecified
CPT/HCPCS: 36415; 81001; 87040; 87077; 87086; 87088; 87186

== ENCOUNTER → 2024-04-01 05:00 | Outpatient (REF) | payer MEDICARE, MEDICAID, SELFPAY ==
[2024-04-01 09:42] LABS: Cholesterol 143 mg/dL (200); High Density Lipoprotein 36 mg/dL; Triglycerides 242 mg/dL; Very Low Density Lipoprotein 48 mg/dL (5-40)
[2024-04-01 10:02] LABS: Hemoglobin A1c 6.4 % (3.8-5.6)
== END ==
LOC: OLS.SANC 05:00
PROVIDERS: Visit Provider Internal Medicine
DX: J44.9 Chronic obstructive pulmonary disease, unspecified (principal); I11.0 Hypertensive heart disease with heart failure; I50.9 Heart failure, unspecified; E78.5 Hyperlipidemia, unspecified; E11.9 Type 2 diabetes mellitus without complications
CPT/HCPCS: 36415; 80061; 83036

== ENCOUNTER → 2024-04-17 05:00 | Outpatient (REF) | payer MEDICARE, MEDICAID, SELFPAY ==
[2024-04-17 08:09] LABS: Hematocrit 32.5 % (37-47); Hemoglobin 9.6 g/dL (12.0-15.0); Mean Corp Hgb Conc 29.5 g/dL (32-36); Mean Corpuscular Hgb 28.9 pg (27.0-32.0); Mean Corpuscular Volume 97.9 fL (81-99); Mean Platelet Vol. 9.8 fl (6.2-12.0); Platelet Count 227 K/mm3 (150-450); RBC Distribution Width CV 15.2 % (11.6-14.6); RBC Distribution Width SD 54.4 fl (35.1-43.9); Red Blood Count 3.32 M/mm3 (4.2-5.4)
[2024-04-17 08:27] LABS: Anion Gap 7 (5-15); BUN 44 mg/dL (7-18); BUN/Creat Ratio 32.4 RATIO (10-20); Calcium,Total 9.2 mg/dL (8.5-10.1); Chloride 102 mmol/L (98-107); Creatinine, Serum 1.36 mg/dL (0.55-1.02); EST Glomerular Filtration Rate 41 mL/min (>60); Est Glom Filt Rate - Afr Amer 50 mL/min (>60); Glucose 74 mg/dL (74-106); Sodium Level 141 mmol/L (136-145)
== END ==
LOC: OLS.SANC 05:00
PROVIDERS: Visit Provider Internal Medicine
DX: I11.0 Hypertensive heart disease with heart failure (principal); I50.9 Heart failure, unspecified; J44.9 Chronic obstructive pulmonary disease, unspecified; E78.5 Hyperlipidemia, unspecified; E11.9 Type 2 diabetes mellitus without complications
CPT/HCPCS: 36415; 80048; 85027

== ENCOUNTER → 2024-06-19 | Outpatient (REF) | payer MEDICARE, MEDICAID, SELFPAY ==
[2024-06-19 08:00] LABS: Hematocrit 31.6 % (37-47); Hemoglobin 9.7 g/dL (12.0-15.0); Mean Corp Hgb Conc 30.7 g/dL (32-36); Mean Corpuscular Volume 97.8 fL (81-99); Platelet Count 262 K/mm3 (150-450); RBC Distribution Width CV 14.1 % (11.6-14.6); RBC Distribution Width SD 49.9 fl (35.1-43.9); Red Blood Count 3.23 M/mm3 (4.2-5.4); White Blood Count 8.9 K/mm3 (4.4-11.0)
[2024-06-19 08:19] LABS: ALB/GLOB Ratio 0.8 RATIO (0.9-2.4); AST(SGOT) 14 U/L (15-37); Alanine Aminotransfer ALT/SGPT 12 U/L (13-56); Albumin, Serum 2.3 g/dL (3.2-5.0); Alkaline Phosphatase 66 U/L (45-117); Anion Gap 2 (5-15); BUN 32 mg/dL (7-18); Calcium,Total 8.6 mg/dL (8.5-10.1); Chloride 109 mmol/L (98-107); Creatinine, Serum 1.23 mg/dL (0.55-1.02); EST Glomerular Filtration Rate 46 mL/min (>60); Est Glom Filt Rate - Afr Amer 56 mL/min (>60); Globulin 2.9 g/dL (2.2-4.2); Glucose 84 mg/dL (74-106); Potassium 3.9 mmol/L (3.5-5.1); Protein, Total 5.2 g/dL (6.4-8.2); Sodium Level 140 mmol/L (136-145)
== END ==
LOC: OLS.SANC 05:00
PROVIDERS: Visit Provider Internal Medicine
DX: I11.0 Hypertensive heart disease with heart failure (principal); I50.9 Heart failure, unspecified; J44.9 Chronic obstructive pulmonary disease, unspecified; E78.5 Hyperlipidemia, unspecified; E11.9 Type 2 diabetes mellitus without complications
CPT/HCPCS: 36415; 80053; 85027

== ENCOUNTER → 2024-07-02 05:00 | Outpatient (REF) | payer MEDICARE, MEDICAID, SELFPAY ==
[2024-07-02 09:33] LABS: Hemoglobin A1c 6.9 % (3.8-5.6)
== END ==
LOC: OLS.SANC 05:00
PROVIDERS: Visit Provider Internal Medicine
DX: Z79.899 Other long term (current) drug therapy (principal)
CPT/HCPCS: 36415; 83036

== ENCOUNTER → 2024-08-07 | Outpatient (REF) | payer MEDICARE, MEDICAID, SELFPAY ==
[2024-08-08 07:44] LABS: Mucous, Urine 0 SEEN /hpf (<or=2+); Red Blood Cells-Urine 0 SEEN /hpf (0-5)
[2024-08-08 08:05] LABS: Color, Urine Yellow (Yellow); Glucose, Dipstick 100 mg/dl (Normal); Ketone-Dipstick Negative (Negative); Leukocyte Esterase-Dipstick 100 /ul (Negative); Nitrite-Dipstick Negative (Negative); Occult Blood-Urine 25 /ul (Negative); Protein-Dipstick Negative (Negative); Urine Bilirubin Dipstick Negative (Negative); Urine Clarity Sl. Cloudy (Clear); Urine Urobilinogen Normal (Normal)
[2024-08-08 08:35] LABS: Bacteria 1+ /hpf (None Seen); Squamous Epithelial Cells - UA 0-5 SEEN /hpf (5-10)
[2024-08-08 08:36] LABS: White Blood Cells 0-5 SEEN /hpf (0-5)
== END ==
LOC: OLS.SANC 05:40
PROVIDERS: Visit Provider Internal Medicine
DX: R39.9 Unspecified symptoms and signs involving the genitourinary system (principal)
CPT/HCPCS: 81001; 87077; 87086; 87088; 87186

== ENCOUNTER → 2024-08-14 | Outpatient (REF) | payer MEDICARE, MEDICAID, SELFPAY ==
[2024-08-14 08:50] LABS: Color, Urine Yellow (Yellow); Glucose, Dipstick 250 mg/dl (Normal); Ketone-Dipstick Negative (Negative); Leukocyte Esterase-Dipstick 25 /ul (Negative); Nitrite-Dipstick Negative (Negative); Occult Blood-Urine 10 /ul (Negative); Protein-Dipstick Negative (Negative); Specific Gravity, Urine 1.015 (1.002-1.030); Urine Bilirubin Dipstick Negative (Negative); Urine Clarity Clear (Clear); Urine Urobilinogen Normal (Normal)
[2024-08-14 09:02] LABS: Mucous, Urine 0 SEEN /hpf (<or=2+)
[2024-08-14 09:03] LABS: Bacteria 1+ /hpf (None Seen); Red Blood Cells-Urine 0-5 SEEN /hpf (0-5); Squamous Epithelial Cells - UA 0-5 SEEN /hpf (5-10); White Blood Cells 0-5 SEEN /hpf (0-5)
== END ==
LOC: OLS.SANC 12:00
PROVIDERS: Visit Provider Internal Medicine
DX: R39.9 Unspecified symptoms and signs involving the genitourinary system (principal)
CPT/HCPCS: 81001; 87077; 87086; 87088; 87186

== ENCOUNTER → 2024-08-19 | Outpatient (REF) | payer MEDICARE, MEDICAID, SELFPAY ==
[2024-08-19 08:36] LABS: Vitamin D,25 Hydroxy 49.2 ng/mL
== END ==
LOC: OLS.SANC 05:00
PROVIDERS: Visit Provider Internal Medicine
DX: E55.9 Vitamin D deficiency, unspecified (principal)
CPT/HCPCS: 36415; 82306

== ENCOUNTER → 2024-09-17 | Outpatient (REF) | payer MEDICARE, MEDICAID, SELFPAY ==
[2024-09-17 09:23] LABS: Hematocrit 31.5 % (37-47); Mean Corp Hgb Conc 31.7 g/dL (32-36); Mean Corpuscular Hgb 32.1 pg (27.0-32.0); Mean Platelet Vol. 8.9 fl (6.2-12.0); Platelet Count 238 K/mm3 (150-450); RBC Distribution Width CV 12.5 % (11.6-14.6); RBC Distribution Width SD 46.8 fl (35.1-43.9); Red Blood Count 3.12 M/mm3 (4.2-5.4); White Blood Count 8.8 K/mm3 (4.4-11.0)
[2024-09-17 09:58] LABS: Anion Gap 5 (5-15); BUN 38 mg/dL (7-18); BUN/Creat Ratio 29.9 RATIO (10-20); Chloride 101 mmol/L (98-107); Creatinine, Serum 1.27 mg/dL (0.55-1.02); EST Glomerular Filtration Rate 45 mL/min (>60); Est Glom Filt Rate - Afr Amer 54 mL/min (>60); Glucose 137 mg/dL (74-106); Potassium 4.2 mmol/L (3.5-5.1); Sodium Level 140 mmol/L (136-145)
== END ==
LOC: OLS.SANC 04:00
PROVIDERS: Referring Provider Internal Medicine; Visit Provider Internal Medicine
DX: E11.9 Type 2 diabetes mellitus without complications (principal)
CPT/HCPCS: 36415; 80048; 85027

== ENCOUNTER → 2024-10-02 | Outpatient (REF) | payer MEDICARE, MEDICAID, SELFPAY ==
[2024-10-02 08:53] LABS: Hemoglobin 10.4 g/dL (12.0-15.0); Mean Corp Hgb Conc 31.5 g/dL (32-36); Mean Corpuscular Hgb 31.7 pg (27.0-32.0); Mean Corpuscular Volume 100.6 fL (81-99); Mean Platelet Vol. 9.1 fl (6.2-12.0); Platelet Count 286 K/mm3 (150-450); RBC Distribution Width CV 12.8 % (11.6-14.6); RBC Distribution Width SD 46.5 fl (35.1-43.9); Red Blood Count 3.28 M/mm3 (4.2-5.4); White Blood Count 10.5 K/mm3 (4.4-11.0)
[2024-10-02 09:10] LABS: ALB/GLOB Ratio 0.8 RATIO (0.9-2.4); AST(SGOT) 32 U/L (15-37); Alanine Aminotransfer ALT/SGPT 49 U/L (13-56); Albumin, Serum 2.5 g/dL (3.2-5.0); Alkaline Phosphatase 56 U/L (45-117); Anion Gap 7 (5-15); BUN 50 mg/dL (7-18); BUN/Creat Ratio 29.6 RATIO (10-20); Calcium,Total 8.4 mg/dL (8.5-10.1); Chloride 102 mmol/L (98-107); Cholesterol 191 mg/dL (200); Creatinine, Serum 1.69 mg/dL (0.55-1.02); EST Glomerular Filtration Rate 32 mL/min (>60); Est Glom Filt Rate - Afr Amer 39 mL/min (>60); Glucose 247 mg/dL (74-106); High Density Lipoprotein 39 mg/dL; Potassium 4.1 mmol/L (3.5-5.1); Protein, Total 5.5 g/dL (6.4-8.2); Sodium Level 138 mmol/L (136-145); Triglycerides 373 mg/dL; Very Low Density Lipoprotein 75 mg/dL (5-40)
[2024-10-02 09:14] LABS: Hemoglobin A1c 7.4 % (3.8-5.6)
== END ==
LOC: OLS.SANC 05:00
PROVIDERS: Visit Provider Internal Medicine
DX: I10 Essential (primary) hypertension (principal); E78.5 Hyperlipidemia, unspecified; Z79.899 Other long term (current) drug therapy
CPT/HCPCS: 36415; 80053; 80061; 83036; 85027

== ENCOUNTER → 2024-10-09 05:00 | Outpatient (REF) | payer MEDICARE, MEDICAID, SELFPAY ==
[2024-10-09 08:42] LABS: Hematocrit 36.1 % (37-47); Mean Corp Hgb Conc 30.5 g/dL (32-36); Mean Corpuscular Hgb 31.1 pg (27.0-32.0); Mean Platelet Vol. 9.1 fl (6.2-12.0); Platelet Count 211 K/mm3 (150-450); RBC Distribution Width CV 13.2 % (11.6-14.6); RBC Distribution Width SD 48.8 fl (35.1-43.9); Red Blood Count 3.54 M/mm3 (4.2-5.4); White Blood Count 7.4 K/mm3 (4.4-11.0)
[2024-10-09 08:54] LABS: Anion Gap 6 (5-15); BUN 42 mg/dL (7-18); BUN/Creat Ratio 28.4 RATIO (10-20); Calcium,Total 9.5 mg/dL (8.5-10.1); Chloride 101 mmol/L (98-107); Creatinine, Serum 1.48 mg/dL (0.55-1.02); EST Glomerular Filtration Rate 37 mL/min (>60); Est Glom Filt Rate - Afr Amer 45 mL/min (>60); Glucose 166 mg/dL (74-106); Potassium 4.8 mmol/L (3.5-5.1); Sodium Level 136 mmol/L (136-145)
== END ==
LOC: OLS.SANC 05:00
PROVIDERS: Visit Provider Internal Medicine
DX: E11.9 Type 2 diabetes mellitus without complications (principal); Z79.899 Other long term (current) drug therapy
CPT/HCPCS: 36415; 80048; 85027

== ENCOUNTER → 2024-11-04 | Outpatient (REF) | payer MEDICARE, MEDICAID, SELFPAY ==
[2024-11-05 06:50] LABS: Bacteria 0 SEEN /hpf (None Seen); Mucous, Urine 0 SEEN /hpf (<or=2+); Red Blood Cells-Urine 0 SEEN /hpf (0-5); White Blood Cells 0 SEEN /hpf (0-5)
[2024-11-05 08:37] LABS: Color, Urine Yellow (Yellow); Glucose, Dipstick Normal (Normal); Ketone-Dipstick Negative (Negative); Leukocyte Esterase-Dipstick Negative /ul (Negative); Nitrite-Dipstick Negative (Negative); Occult Blood-Urine Negative /ul (Negative); Protein-Dipstick Negative (Negative); Urine Bilirubin Dipstick Negative (Negative); Urine Clarity Clear (Clear); Urine Urobilinogen Normal (Normal)
[2024-11-05 09:16] LABS: Squamous Epithelial Cells - UA 0-5 SEEN /hpf (5-10)
== END ==
LOC: OLS.SANC 18:00
PROVIDERS: Visit Provider Internal Medicine
DX: R30.0 Dysuria (principal)
CPT/HCPCS: 81001; 87077; 87086; 87088; 87186

== ENCOUNTER → 2024-12-19 | Outpatient (REF) | payer MEDICARE, SELFPAY ==
[2024-12-19 07:48] LABS: Hematocrit 33.1 % (37-47); Hemoglobin 10.4 g/dL (12.0-15.0); Mean Corp Hgb Conc 31.4 g/dL (32-36); Mean Corpuscular Hgb 31.3 pg (27.0-32.0); Mean Corpuscular Volume 99.7 fL (81-99); Mean Platelet Vol. 8.7 fl (6.2-12.0); Platelet Count 215 K/mm3 (150-450); RBC Distribution Width CV 12.4 % (11.6-14.6); RBC Distribution Width SD 44.6 fl (35.1-43.9); Red Blood Count 3.32 M/mm3 (4.2-5.4)
[2024-12-19 08:05] LABS: Anion Gap 5 (5-15); BUN 39 mg/dL (7-18); BUN/Creat Ratio 26.7 RATIO (10-20); Calcium,Total 9.4 mg/dL (8.5-10.1); Chloride 100 mmol/L (98-107); Creatinine, Serum 1.46 mg/dL (0.55-1.02); EST Glomerular Filtration Rate 38 mL/min (>60); Est Glom Filt Rate - Afr Amer 46 mL/min (>60); Glucose 178 mg/dL (74-106); Potassium 4.1 mmol/L (3.5-5.1); Sodium Level 138 mmol/L (136-145)
== END ==
LOC: OLS.SANC 05:00
PROVIDERS: Visit Provider Internal Medicine
DX: I11.0 Hypertensive heart disease with heart failure (principal); I50.9 Heart failure, unspecified; J44.9 Chronic obstructive pulmonary disease, unspecified; E11.9 Type 2 diabetes mellitus without complications; E78.5 Hyperlipidemia, unspecified
CPT/HCPCS: 36415; 80048; 85027

== ENCOUNTER → 2025-01-19 | Outpatient (REF) | payer MEDICARE, SELFPAY ==
[2025-01-19 10:27] LABS: Hematocrit 35.9 % (37-47); Hemoglobin 11.4 g/dL (12.0-15.0); Mean Corp Hgb Conc 31.8 g/dL (32-36); Mean Corpuscular Hgb 31.8 pg (27.0-32.0); Mean Corpuscular Volume 100.3 fL (81-99); Platelet Count 232 K/mm3 (150-450); RBC Distribution Width CV 12.4 % (11.6-14.6); RBC Distribution Width SD 45.8 fl (35.1-43.9); Red Blood Count 3.58 M/mm3 (4.2-5.4); White Blood Count 8.4 K/mm3 (4.4-11.0)
[2025-01-19 14:40] LABS: Anion Gap 11 (5-15); BUN 39 mg/dL (4-19); BUN/Creat Ratio 26.4 RATIO (10-20); Calcium,Total 9.1 mg/dL (7.6-11.0); Carbon Dioxide 28.1 mmol/L (21.0-32.0); Chloride 99 mmol/L (98-108); Creatinine, Serum 1.49 mg/dL (0.70-1.20); EST Glomerular Filtration Rate 38 (>60); Glucose 110 mg/dL (70-99); Potassium 4.2 mmol/L (3.3-5.1); Sodium Level 139 mmol/L (133-145)
== END ==
LOC: OLS.SANC 05:00
PROVIDERS: Visit Provider Internal Medicine
DX: I11.0 Hypertensive heart disease with heart failure (principal); I50.9 Heart failure, unspecified; J44.9 Chronic obstructive pulmonary disease, unspecified; E11.9 Type 2 diabetes mellitus without complications; E78.5 Hyperlipidemia, unspecified
CPT/HCPCS: 36415; 80048; 85027

== ENCOUNTER → 2025-02-12 | Outpatient (REF) | payer MEDICARE, SELFPAY ==
[2025-02-12 09:33] LABS: Hemoglobin A1c 7.9 % (<=5.6)
== END ==
LOC: OLS.SANC 05:00
PROVIDERS: Visit Provider Internal Medicine
DX: E11.9 Type 2 diabetes mellitus without complications (principal)
CPT/HCPCS: 36415; 83036

== ENCOUNTER → 2025-04-02 05:00 | Outpatient (REF) | payer MEDICARE, SELFPAY ==
[2025-04-02 09:23] LABS: Hematocrit 33.9 % (37-47); Hemoglobin 10.6 g/dL (12.0-15.0); Mean Corp Hgb Conc 31.3 g/dL (32-36); Mean Corpuscular Hgb 31.8 pg (27.0-32.0); Mean Corpuscular Volume 101.8 fL (81-99); Mean Platelet Vol. 8.7 fl (6.2-12.0); Platelet Count 223 K/mm3 (150-450); RBC Distribution Width CV 13.2 % (11.6-14.6); RBC Distribution Width SD 49.4 fl (35.1-43.9); Red Blood Count 3.33 M/mm3 (4.2-5.4); White Blood Count 7.4 K/mm3 (4.4-11.0)
[2025-04-02 09:38] LABS: Hemoglobin A1c 8.6 % (<=5.6)
[2025-04-02 09:43] LABS: ALB/GLOB Ratio 1.1 RATIO (0.9-2.4); AST(SGOT) 15 U/L (<=31); Alanine Aminotransfer ALT/SGPT 13 U/L (<=34); Albumin, Serum 2.7 g/dL (3.4-4.8); Alkaline Phosphatase 75 U/L (35-104); Anion Gap 10 (5-15); BUN 33 mg/dL (4-19); BUN/Creat Ratio 27.4 RATIO (10-20); Calcium,Total 8.4 mg/dL (7.6-11.0); Carbon Dioxide 25.4 mmol/L (21.0-32.0); Chloride 104 mmol/L (98-108); Cholesterol 163 mg/dL (<=200); Creatinine, Serum 1.21 mg/dL (0.70-1.20); EST Glomerular Filtration Rate 49 (>60); Globulin 2.4 g/dL (2.2-4.2); Glucose 168 mg/dL (70-99); High Density Lipoprotein 36 mg/dL; Low Density Lipoprotein Calc. 81 mg/dL; Potassium 4.1 mmol/L (3.3-5.1); Protein, Total 5.1 g/dL (5.9-8.4); Sodium Level 140 mmol/L (133-145); Total Bilirubin 0.22 mg/dL (0.00-1.30); Triglycerides 230 mg/dL; Very Low Density Lipoprotein 46 mg/dL (5-40); cholesterol:hdl ratio screen 4.55
== END ==
LOC: OLS.SANC 05:00
PROVIDERS: Visit Provider Internal Medicine
DX: I11.0 Hypertensive heart disease with heart failure (principal); I50.9 Heart failure, unspecified; J44.9 Chronic obstructive pulmonary disease, unspecified; E11.9 Type 2 diabetes mellitus without complications; E78.5 Hyperlipidemia, unspecified
CPT/HCPCS: 36415; 80053; 80061; 83036; 85027

== ENCOUNTER → 2025-04-21 | Outpatient (REF) | payer MEDICARE, SELFPAY ==
[2025-04-21 08:40] LABS: Hematocrit 32.4 % (37-47); Hemoglobin 10.5 g/dL (12.0-15.0); Mean Corp Hgb Conc 32.4 g/dL (32-36); Mean Corpuscular Hgb 32.1 pg (27.0-32.0); Mean Corpuscular Volume 99.1 fL (81-99); Mean Platelet Vol. 8.9 fl (6.2-12.0); Platelet Count 251 K/mm3 (150-450); RBC Distribution Width CV 12.8 % (11.6-14.6); RBC Distribution Width SD 46.6 fl (35.1-43.9); Red Blood Count 3.27 M/mm3 (4.2-5.4); White Blood Count 7.6 K/mm3 (4.4-11.0)
[2025-04-21 09:05] LABS: Anion Gap 10 (5-15); BUN 33 mg/dL (4-19); BUN/Creat Ratio 25.2 RATIO (10-20); Calcium,Total 8.9 mg/dL (7.6-11.0); Carbon Dioxide 30.9 mmol/L (21.0-32.0); Chloride 99 mmol/L (98-108); Creatinine, Serum 1.29 mg/dL (0.70-1.20); EST Glomerular Filtration Rate 45 (>60); Glucose 115 mg/dL (70-99); Potassium 3.9 mmol/L (3.3-5.1); Sodium Level 139 mmol/L (133-145)
== END ==
LOC: OLS.SANC 05:00
PROVIDERS: Visit Provider Internal Medicine
DX: I11.0 Hypertensive heart disease with heart failure (principal); I50.9 Heart failure, unspecified; J44.9 Chronic obstructive pulmonary disease, unspecified; E11.9 Type 2 diabetes mellitus without complications; E78.5 Hyperlipidemia, unspecified
CPT/HCPCS: 36415; 80048; 85027

== ENCOUNTER → 2025-05-05 | Outpatient (REF) | payer MEDICARE, SELFPAY ==
[2025-05-05 07:33] LABS: Mucous, Urine 0 SEEN /hpf (<or=2+); Red Blood Cells-Urine 0 SEEN /hpf (0-5)
[2025-05-05 07:48] LABS: Color, Urine Yellow (Yellow); Glucose, Dipstick 250 mg/dl (Normal); Ketone-Dipstick Negative (Negative); Leukocyte Esterase-Dipstick 500 /ul (Negative); Nitrite-Dipstick Negative (Negative); Occult Blood-Urine Negative /ul (Negative); Protein-Dipstick 15 mg/dl (Negative); Specific Gravity, Urine 1.015 (1.002-1.030); Urine Bilirubin Dipstick Negative (Negative)
[2025-05-05 07:58] LABS: Squamous Epithelial Cells - UA 5-10 SEEN /hpf (5-10)
== END ==
LOC: OLS.SANC 05:00
PROVIDERS: Visit Provider Internal Medicine
DX: N39.0 Urinary tract infection, site not specified (principal)
CPT/HCPCS: 81001; 87077; 87086; 87088; 87186

== ENCOUNTER → 2025-07-06 | Outpatient (REF) | payer MEDICARE, SELFPAY ==
[2025-07-06 09:34] LABS: Hematocrit 33.7 % (37-47); Hemoglobin 10.8 g/dL (12.0-15.0); Mean Corp Hgb Conc 32.0 g/dL (32-36); Mean Corpuscular Volume 100.3 fL (81-99); Mean Platelet Vol. 9.3 fl (6.2-12.0); Platelet Count 239 K/mm3 (150-450); RBC Distribution Width CV 12.6 % (11.6-14.6); RBC Distribution Width SD 46.5 fl (35.1-43.9); Red Blood Count 3.36 M/mm3 (4.2-5.4); White Blood Count 9.3 K/mm3 (4.4-11.0)
[2025-07-06 10:45] LABS: Anion Gap 15 (5-15); BUN 45 mg/dL (4-19); BUN/Creat Ratio 36.0 RATIO (10-20); Calcium,Total 9.0 mg/dL (7.6-11.0); Carbon Dioxide 27.2 mmol/L (21.0-32.0); Chloride 95 mmol/L (98-108); Glucose 248 mg/dL (70-99); Potassium 4.2 mmol/L (3.3-5.1)
== END ==
LOC: OLS.SANC 04:00
PROVIDERS: Referring Provider Internal Medicine; Visit Provider Internal Medicine
DX: I10 Essential (primary) hypertension (principal); E11.9 Type 2 diabetes mellitus without complications
CPT/HCPCS: 36415; 80048; 83036; 85027

== ENCOUNTER → 2025-07-22 | Outpatient (REF) | payer MEDICARE, SELFPAY ==
[2025-07-22 08:24] LABS: Hematocrit 42.0 % (37-47); Hemoglobin 13.5 g/dL (12.0-15.0); Mean Corp Hgb Conc 32.1 g/dL (32-36); Mean Corpuscular Volume 101.2 fL (81-99); Mean Platelet Vol. 9.0 fl (6.2-12.0); Platelet Count 262 K/mm3 (150-450); RBC Distribution Width CV 13.2 % (11.6-14.6); RBC Distribution Width SD 49.1 fl (35.1-43.9); Red Blood Count 4.15 M/mm3 (4.2-5.4); White Blood Count 9.9 K/mm3 (4.4-11.0)
[2025-07-22 08:39] LABS: Anion Gap 13 (5-15); BUN 37 mg/dL (4-19); BUN/Creat Ratio 29.6 RATIO (10-20); Calcium,Total 9.2 mg/dL (7.6-11.0); Carbon Dioxide 28.7 mmol/L (21.0-32.0); Chloride 98 mmol/L (98-108); Glucose 197 mg/dL (70-99); Potassium 4.1 mmol/L (3.3-5.1)
== END ==
LOC: OLS.SANC 05:00
PROVIDERS: Visit Provider Internal Medicine
DX: I10 Essential (primary) hypertension (principal); J44.9 Chronic obstructive pulmonary disease, unspecified; E11.9 Type 2 diabetes mellitus without complications
CPT/HCPCS: 36415; 80048; 85027

== ENCOUNTER → 2025-08-03 | Outpatient (REF) | payer MEDICARE, SELFPAY ==
--- OUTSIDE RECORDS SUMMARY | 2025-08-03 04:14 | XMS RPT_ITS | CCD ---
Author Organization [facility] Care Team Providers Care Clinical Physician Assistant Name Role Phone Moe Meyer MD Primary Care Provider [phone] Prabhjot RUIZ, Maryan J Unavailable [phone] [facility], Susan Unavailable Nikunj HAM DOCTOR.Sejal ROMERO Unavailable Moe Meyer MD Primary Care Provider Frankie Deng MD Primary Care Provider [phone] Frankie Deng MD Primary Care Provider Prabhjot RUIZ Maryan J Unavailable [facility], Susan Unavailable Nikunj HAM DOCTOR.Sejal ROMERO Unavailable [phone] Frankie Deng MD Primary Care Provider Jun HAM DOCTOR.Agustin ROMERO Primary Care Provider Nikunj MUNIZN.Sejal ROMERO Unavailable Jun HAM DOCTOR.Agustin ROMERO Primary Care Provider Markus RCANE, Krupa N Unavailable [phone] Prabhjot RUIZ, Maryan J Unavailable Nikunj HAM DOCTOR.Sejal ROMERO Unavailable Jun HAM DOCTOR.Agustin ROMERO Primary Care Provider Markus CRANE, Krupa N Unavailable [phone] MOE MEYER Referring Unavailable MOE MEYER Referring Unavailable MOE MEYER Primary Care Unavailable MOE MEYER Referring Unavailable FRANKIE DENG Primary Care Unavailable SAVEL, MOE Referring Unavailable SAVEL, MOE Primary Care Unavailable SAVEL, MOE Referring Unavailable SOWMYA, FRANKIE DELGADO Attending Unavailable SAVEL, MOE Primary Care Unavailable SHEA CHILDERS Attending Unavailable SOWMYA, FRANKIE DELGADO Primary Care Unavailable SAVEL, MOE Referring Unavailable SOWMYA, FRANKIE DELGADO Primary Care Unavailable SAVEL, MOE Referring Unavailable SOWMYA, FRANKIE DELGADO Primary Care Unavailable SAVEL, MOE Referring Unavailable SOWMYA, FRANKIE SANDY Primary Care Unavailable SAVEL, MOE Referring Unavailable RAWLEIGH, AGUSTIN A Primary Care Unavailable SAVEL, MOE Referring Unavailable SAVEL, MOE Attending Unavailable SAVEL, MOE Referring Unavailable SAVEL, MOE Referring Unavailable [facility], Susan Unavailable Dustin ALFONSO, Lucy Galindo Primary Care Provider RAWLEIGH, AGUSTIN A Primary Care Unavailable RAWLEIGH, AGUSTIN A Attending Unavailable LUCY QUICK Primary Care Unavaila ble RAWLEIGH, AGUSTIN A Primary Care Unavailable CONSTANZA DAY Attending Unavailable ZULLY DAMIAN Attending Unavailable QUIQUE LIN Consulting Unavailable RAWLEIGH, AGUSTIN A Primary Care Unavailable ROSELINE INFANTE Admitting Unavailable CONSTANZA DAY Referring Unavailable SANDY BONNER Attending Unavailable RAWLEIGH, AGUSTIN A Primary Care Unavailable RAWLEIGH, AGUSTIN A Primary Care Unavailable RAWLEIGH, AGUSTIN A Attending Unavailable RAWLEIGH, AGUSTNI A Primary Care Unavailable ODILIA GAUTHIER Admitting Unavailable ODILIA GAUTHIER Attending Unavailable VEGA, SHAZIA STEVENSON Consulting Unavailable JULISSA ARMSTRONG Admitting Unavailable RAWLEIGH, AGUSTIN A Primary Care Unavailable DUMFORD III, AJ M Consulting UnavailJUANA Adame Attending Unavailable ICKES II, DEIRDRE Admitting Unavailable RAWLEIGH, AGUSTIN A Primary Care Unavailable GREG BORGES Attending Unavailable MORGAN BERNARD Admitting Unavailable NORM ERICKSON Consulting Unavailable ROSELINE INFANTE Attending Unavailable LUCY QUICK Primary Care Unavaila ble RAWLEIGH, AGUSTIN A Primary Care Unavailable NATAN NG Attending Unavailable RAWLEIGH, AGUSTIN A Primary Care Unavailable Lucy Quick Primary Care Provider [phone] Lucy Quick Primary Care Provider LUCY QUICK Primary Care Unavailable SHMUEL TREVINO Admitting Unavailable JOSE LYNN Consulting Unavailable CHEKO MENDOZA Attending Unavailable LUCY QUICK Primary Care Unavailable EBONI FLETCHER Admitting Unavailable CARMEN TALAMANTES Attending Unavailable AURELIODIN, JOSE Consulting Unavailable [place] OLS, Lucy Attending Provider Unavailab le [place] [facility], Lucy Referring Provider Unavailab le [place] O[facility], Lucy Attending Provider Unavailab le [place] OLS, Lucy Attending Provider Unavailab le [place] OLS, Lucy Attending Unavailable [place] OLS, Lucy Attending Unavailable [place] OLS, Lucy Attending Unavailable [place] OLS, Lucy Attending Unavailable [place] OLS, Lucy Attending Unavailable [place] OLS, Lucy Referring Unavailable [place] OLS, Lucy Attending Unavailable [place] OLS, Lucy Attending Unavailable [place] OLS, Lucy Attending Unavailable [place] OLS, Lucy Attending Unavailable [place] OLS, Lucy Attending Unavailable [place] OLS, Lucy Attending Unavailable [place] OLS, Lucy Attending Unavailable [place] OLS, Lucy Attending Unavailable [place] OLS, Lucy Referring Unavailable [place] OLS, Lucy Attending Unavailable [place] OLS, Lucy Attending Unavailable Allergies Allergy Classification Reported Allergen(s) Allergy Type Date of Onset Reaction(s) Facility (6 sources) HYDROmorphone Drug Allergy 2 Nausea And Vomiting [facility] (2 sources) HYDROmorphone Drug Allergy 0 Other (See Comments) [facility] Work Phone: (20 sources) metFORMIN; Translations: [METFORMIN] Drug Allergy 2 Diarrhea [facility] Work Phone: (2 sources) metFORMIN Drug Allergy 0 [facility] Work Phone: (20 sources) Morphine; Translations: [MORPHINE] Drug Allergy 2 Vomiting [facility] Work Phone: (20 sources) Ondansetron; Translations: [ONDANSETRON] Drug Allergy 0 Unknown [facility] Work Phone: (2 sources) Ondansetron Drug Allergy 1 [facility] Work Phone: (20 sources) Penicillins; Translations: [PENICILLINS] Propensity to adverse reactions to drug 2 Itching, [facility] dulaglutide; Translations: [DULAGLUTIDE] Drug Allergy 2 GI Upset [facility] Work Phone: (20 sources) empagliflozin; Translations: [EMPAGLIFLOZIN] Drug Allergy 2 Other: See Comments [facility] Work Phone: (20 sources) HYDROmorphone; Translations: [HYDROMORPHONE (BULK)] Drug Allergy 2 Vomiting [facility] Work Phone: (4 sources) dulaglutide Drug Allergy 4 [facility] (4 sources) empagliflozin Drug Allergy 4 [facility] Medications Current Medications Medication Drug Class(es) Dates Sig (Normalized) Sig (Original) acetylcysteine 600 mg oral capsule (4 sources) Antidote, Mucolytic, Antidote for Acetaminophen Overdose take 1 capsule by mouth in the morning Acetylcysteine (N-Acetyl Cysteine) 600 MG capsule capsule Take 600 mg by mouth in the morning and 600 mg in the evening. 0 Active bismuth tribrom-petrolatum (XEROFORM) 5 X 9 bndg (5 sources) Start: 10-26-2022 End: 11-25-2022 bismuth tribrom-petrolatum (XEROFORM) 5 X 9 bndg Apply 1 application to affected area once daily. 50 Each 1 10/26/2022 11/25/2022 Suspended Start: 10-26-2022 End: 11-25-2022 bismuth tribrom-petrolatum ( XEROFORM) 5 X 9 bndg Apply 1 application to affected area once daily. 50 Each 1 10/26/2022 11/25/2022 Active Comment on above: Apply 1 application to affected area once daily. 60 actuat budesonide 0.16 mg/actuat / formoterol fumarate 0.0045 mg/actuat metered dose inhaler (20 sources) Corticosteroid, beta2-Adrenergic Agonist take 2 puff(s) by inhalation in the morning budesonide-formoterol (Symbicort) 160-4.5 MCG/ACT inhaler Indications: Chronic Obstructive Pulmonary Disease Inhale 2 puffs in the morning and 2 puffs in the evening. Rinse mouth with water after use to reduce aftertaste and incidence of candidiasis. Do not swallow.. 0 Active take 2 puff(s) by inhalation twi ce daily budesonide-formoterol (SYMBICORT) 160- 4.5 mcg/actuation inhaler Inhale 2 Puffs as instructed twice daily. 0 Suspended take 2 puff(s) by inhalation twi ce daily budesonide-formoterol (SYMBICORT) 160- 4.5 mcg/actuation inhaler Inhale 2 Puffs as instructed twice daily. 0 Active Comment on above: Inhale 2 Puffs as in structed twice daily. cephalexin 500 mg oral capsule (15 sources) Cephalosporin Antibacterial Start: 3 End: 3 take 1 capsule by mouth three times daily cephALEXin (KEFLEX) 500 mg capsule Take 1 capsule by mouth three times daily for 7 days. 21 capsule 0 01/28/2023 02/04/2023 Active Start: 2022 End: 08-30-2022 take 1 capsule by mouth four times daily cephALEXin (KEFLEX) 500 mg capsule Indications: Ecthyma Take 1 capsule by mouth four times daily for 14 days. 56 capsule 0 2022 08/26/2022 Discontinued Start: 07-19-2022 take 1 capsule by mo [facility] twice daily cephALEXin (KEFLEX) 500 mg capsule Take 1 capsule by mouth twice daily. 14 capsule 0 07/19/2022 Active Start: 04-10-2022 End: 04-20-2022 take 1 capsule by mouth four times daily cephALEXin (KEFLEX) 500 mg capsule Take 1 capsule by mouth four times daily for 10 days. 40 capsule 0 04/10/2022 04/20/2022 Active Start: 10-08-2021 End: 10-15-2021 Start: 10-08-2021 End: 10-15-2021 take 1 dose by mouth three times daily 1,000 mg, Oral, EVERY 8 HOURS SCHEDULED (3 times per day), First dose on 10/08/21 at 1400, For 7 days Comment on above: Take 1 capsule by mo uth four times daily for 10 days. Take 1 capsule by mo ut twice daily. Take 1 capsule by [facility] four times daily for 14 days. Take 1 capsule by [facility] three times daily for 7 days. chlorhexidine gluconate 40 m g/ml medicated liquid soap (3 sources) Start: 10-12-2021 End: 10-25-2021 Start: 10-04-2021 End: 10-10-2021 apply 1 dose topically once daily Topical, DAILY, First dose (after last modification) on Sun10/11/21 at 0900 Cleanse left anterior foot wound daily prior to treatment 2 ml dupilumab 150 mg/ml auto-injector (4 sources) Interleukin-4 Receptor alpha Antagonist dupilumab (Dupixent) 300 MG/2ML injection Indications: Atopic Dermatitis Inject 300 mg under the skin every 14 (fourteen) days. 0 Active 60 actuat fluticasone propionate 0.5 mg/actuat / salmeterol 0.05 mg/actuat dry powder inhaler (1 source) Corticosteroid, beta2-Adrenergic Agonist take 1 puff(s) by inhalation every twelve hours fluticasone-salmeterol (ADVAIR) 500-50 MCG/DOSE diskus inhaler Inhale 1 puff into the lungs every 12 hours 0 Active Foam Bandage (ALLEVYN) 4 X 4 bndg (5 sources) Start : 10-26 End: 11-25 Foam Bandage (ALLEVYN) 4 X 4 bndg Apply to affected area once daily. 30 Each 1 10/26/2022 11/25/2022 Suspended Start: 10-26-2022 End: 11-25-2022 Foam Bandage (ALLEVYN) 4 X 4 bndg Apply to affected area once daily. 30 Each 1 10/26/2022 11/25/2022 Active Comment on above: Apply to affected ar ea once daily. fosfomycin 3000 mg powder for oral solution (1 source) Start: End: take 1 dose by mouth once fosfomycin (MONUROL) 3 g pack Indications: Recurrent UTI (urinary tract infection) Take 1 Packet by mouth one time only for 1 dose. 1 Packet 0 08/30/2022 08/31/2022 Discontinued Comment on above: Take 1 Packet by mac th one time only for 1 dose. guaiFENesin 20 mg/ml oral solution (4 sources) take 200 mg by mouth three times daily as needed for cough guaiFENesin (Robitussin) 100 MG/5ML syrup Indications: Cough Take 200 mg by mouth 3 times daily as needed for cough. 0 Active hydrocortisone 25 mg/ml topical lotion (4 sources) Corticosteroid Start: End: hydrocortisone (HYTONE) 2.5 % lotion Apply to affected area twice daily. FOR EXTERNAL USE ONLY APPLY TO: open wounds to body including abdomen, arms, chest, hips. Substituted to hydrocortisone topical lotion 2.5% per Pharmacy [employer] The[employer] Committee 0 02/15/2023 03/17/2023 Active Comment on above: Apply to affected ar ea twice daily. FOR EXTERNAL USE ONLY APPLY TO: open wounds to body including abdomen, arms, chest, hips. Substituted to hydrocortisone topical lotion 2.5% per Pharmacy and Therapeutics Committee insulin lispro (HUMALOG) 100 UNIT/ML injection vial (1 source) Start: insulin lispro (HUMALOG) 100 UNIT/ML injection vial Inject 12 Units into the skin 3 times daily (with meals) 10 mL 3 05/07/2022 Active isosorbide dinitrate 30 mg oral tablet (4 sources) Nitrate Vasodilator Start: End: isosorbide dinitrate (ISORDIL, SORBITRATE) 30 mg tablet nitrofurantoin, macrocrystals 25 mg / nitrofurantoin, monohydrate 75 mg oral capsule (1 source) Nitrofuran Antibacterial Start: End: take 1 capsule by mouth twice daily nitrofurantoin monohydrate and macrocrystal (MACROBID) 100 mg capsule Take 1 capsule by mouth twice daily for 7 days. 14 capsule 0 07/21/2022 07/28/2022 Active Comment on above: Take 1 capsule by [facility] twice daily for 7 days. petrolatum 0.996 mg/mg topical gel (4 sources) white petrolatum gel Apply topically 2 times daily. 0 Active predniSONE 10 mg oral tablet (15 sources) Start: 11-17-2022 End: 12-29-2022 take 6 tablets by mouth once daily, then take 5 tablets by mouth once daily, then take 4 tablets by mouth once daily, then take 3 tablets by mouth once daily, then take 2 tablets by mouth once daily, then take 1 tablet by mouth once daily predniSONE (DELTASONE) 10 mg tablet Take 6 tablets by mouth once daily for 7 days, THEN 5 tablets once daily for 7 days, THEN 4 tablets once daily for 7 days, THEN 3 tablets once daily for 7 days, THEN 2 tablets once daily for 7 days, THEN 1 tablet once daily for 7 days. 147 tablet 0 11/17/2022 12/29/2022 Active Start: 08-27-2022 End: 08-30-2022 take 3 tablets by mouth once daily predniSONE (DELTASONE) 20 mg tablet Take 3 tablets by mouth once daily for 3 doses. 9 tablet 0 08/27/2022 08/30/2022 Active Start: 07-05-2022 End: 07-15-2022 take 4 tablets by mouth once daily, then take 3 tablets by mouth once daily, then take 2 tablets by mouth once daily, then take 1 tablet by mouth once daily predniSONE (DELTASONE) 10 mg tablet Indications: Rash Take 4 tablets by mouth once daily for 4 days, THEN 3 tablets once daily for 3 days, THEN 2 tablets once daily for 2 days, THEN 1 tablet once daily for 1 day. 30 tablet 0 07/05/2022 07/15/2022 Active Comment on above: Take 4 tablets by [facility] once daily for 4 days, THEN 3 tablets once daily for 3 days, THEN 2 tablets once daily for 2 days, THEN 1 tablet once daily for 1 day. Take 3 tablets by [facility] once daily for 3 doses. Take 6 tablets by [facility] once daily for 7 days, THEN 5 tablets once daily for 7 days, THEN 4 tablets once daily for 7 days, THEN 3 tablets once daily for 7 days, THEN 2 tablets once daily for 7 days, THEN 1 tablet once daily for 7 days. pregabalin 75 mg oral capsule (20 sources) Start: 07-18-20 End: 08-07-20 23 take 1 capsule by mouth twice daily pregabalin (LYRICA) 75 mg capsule Indications: Type 2 diabetes mellitus with diabetic polyneuropathy, with long-term current use of insulin (HCC) Take 1 capsule by mouth twice daily. 180 capsule 3 08/07/2022 08/07/2023 Active Comment on above: Take 1 capsule by mo uth twice daily for 180 days. Take 1 capsule by mo uth twice daily for 30 days. Take 1 capsule by mo uth twice daily for 14 days. Take 1 capsule by mo uth twice daily. Take 1 capsule by mo uth twice daily for 3 days. silver sulfADIAZINE 10 mg/ml topical cream (4 sources) Sulfonamide Antibacterial Start: 10-26-20 End: 11-09-19 silver sulfADIAZINE (SILVADENE,THERMAZEN E) 1 % cream Apply to affected area twice daily for 14 days. 20 g 1 10/26/2022 11/09/2022 Active Comment on above: Apply to affected ar ea twice daily for 14 days. (1 source) Start: 10-08-20 Completed/Discontinued Medications Medication Drug Class(es) Dates Sig (Normalized) Sig (Original) Acetaminophen (19 sources) Start: 03-06-2024 End: 03-09-2024 take 1 tablet by mouth every six hours as needed for pain and fever acetaminophen (Tylenol) tablet 650 mg Start: 01-16-2023 take 2 tablets by mo uth every six hours as needed acetaminophen (TYLENOL) 325 mg tablet Take 2 tablets by mouth every 6 hours as needed for pain or fever (specify) (Tmax>101F). 0 01/16/2023 Active Start: 04-30-2022 acetaminophen (TYLENOL) tablet 650 mg Start: 04-30-2022 End: 04-30-2022 acetaminophen (TYLENOL) tabl et 1,000 mg Comment on above: Take 2 tablets by mo uth every 6 hours as needed for pain or fever (specify) (Tmax>101F). acetaminophen 325 mg / HYDROcodone bitartrate 5 mg oral tablet (20 sources) Opioid Agonist Start: 10-07-20 End: 10-07-20 take 1 tablet by mouth once 1 tablet, Oral, ONCE, On Sun10/07/21 at 1515, For 1 dose Maximum dose of acetaminophen is 4000 mg from all sources in 24 hours. Johnny or to VQ scan End: 10-26-2022 take 1 tablet by mouth once daily as needed for pain HYDROcodone-Acetaminophen (NORCO) 7.5-32 5 mg per tablet Take 1 tablet by mouth once daily as needed for pain. 0 10/26/2022 Discontinued Comment on above: Take 1 tablet by mac th once daily as needed for pain. acetaminophen 325 mg / oxyCO DONE hydrochloride 5 mg oral tablet (17 sources) Opioid Agonist Start: 02-28-2024 End: 02-28-2024 Start: 02-22-2024 End: 03-09-2024 1 tablet, Oral, Every 6 hour s PRN, severe pain (7-10), Starting on Margy 03/06/24 at 0259, Maximum dose of acetaminophen is 4000 mg from all sources in 24 hours., Indications: Pain take 1 tablet by mac th every six hours as needed oxyCODONE-acetaminophen (PERCOCET) 5-325 mg tablet Take 1 tablet by mouth every 6 hours as needed for pain. 0 Active Comment on above: Take 1 tablet by mac th every 6 hours as needed for pain. 20 ml albumin human, [facility] 250 mg/ml injection (2 sources) Human Serum Albumin Start: End: 1 25 g, IntraVENous, at 100 mL/hr, Administer over 60 Minutes, ONCE, On 10/03/21 at 0030, For 1 dose Infusion rate depends on indication and clinical situation. In emergencies, may administer as rapidly as necessary to improve clinical condition. After initial volume replacement: 5%: Do not exceed 2 to 4 mL/minute in patients with normal plasma volume; 5 to 10 mL/minute in patients with hypoproteinemia 25%: Do not exceed 1 mL/minute in patients with normal plasma volume; 2 to 3 mL/minute in patients with hypoproteinemia [id number] actuat albuterol 0.09 mg/actuat metered dose inhaler (20 sources) beta2-Adrenergic Agonist Start: 2 take 2 puff(s) by mouth every four hours as needed for wheezing albuterol HFA (PROVENTIL HFA, VENTOLIN HFA) 90 mcg/actuation inhaler Inhale 2 puffs by mouth every 4 hours as needed for wheezing/shortness of breath 1 Inhaler 11 06/09/2022 Active Start: 11-10-2021 End: 06-09-2022 take 2 puff(s) by inhalation every four hours as needed for wheezing albuterol HFA (PROVENTIL HFA, VENTOLIN HFA) 90 mcg/actuation inhaler Inhale 2 Puffs as instructed every 4 hours as needed for wheezing/shortness of breath. 1 Inhaler 5 11/10/2021 06/09/2022 Discontinued Start: 11-10-2021 take 2.5 mg by inhal ation every four hours as needed albuterol (PROVENTIL) 2.5 mg /3 mL (0.083 %) nebulizer solution Use 3 mL via nebulizer every 4 hours as needed for wheezing/shortness of breath. 30 Vial 2 11/10/2021 Active albuterol (2.5 M G/3ML) 0.083% nebulizer solution Take 2.5 mg by nebulization 4 times daily as needed for wheezing or shortness of breath. 0 Active Comment on above: Use 3 mL via nebuliz er every 4 hours as needed for wheezing/shortness of breath. Inhale 2 Puffs as in structed every 4 hours as needed for wheezing/shortness of breath. Inhale 2 puffs by mo uth every 4 hours as needed for wheezing/shortness of breath albuterol 0.833 mg/ml / ipratropium bromide 0.167 mg/ml inhalation solution (3 sources) Anticholinergic, beta2-Adrenergic Agonist Start: 02-21-2024 End: 02-28-2024 3 mL, Nebulization, Every 4 hours PRN, wheezing, shortness of breath, Starting on Margy 02/21/24 at 2140 Start: 10-02-2021 1 ampule, Inha lation, EVERY 4 HOURS PRN, Shortness of Breath, Starting on 10/02/21 at 0606 alteplase (Cathflo Activase) 2 mg in sterile water 1 mL injection (4 sources) Start: 03-06-2024 End: 03-09-2024 alteplase (Cathflo Activase) 2 mg in sterile water 1 mL injection Start: 03-06-2024 End: 03-09-2024 2 mg, IntraCATHeter, As need ed, line care, Starting on Margy 03/06/24 at 0706, For occluded catheter ports. Instill 2 mg into each port, and retain for 0.5 - 2 hours. May repeat if catheter remains occluded. Dilute each 2 mg vial with 2.2 mL sterile water to give 1 mg/mL final concentration. Swirl gently to mix; do not shake. aluminum hydroxide 40 mg/ml / magnesium hydroxide 40 mg/ml / simethicone 4 mg/ml oral suspension (11 sources) Start: 01-16-2023 take 30 mL by mouth every six hours as needed aluminum-magnesium hydroxide-simethicone 200-200-20 mg/5 mL suspension Take 30 mL by mouth every 6 hours as needed (GI upset). 769 mL 0 01/16/2023 Active Comment on above: Take 30 mL by mouth every 6 hours as nee ded (GI upset). aspirin 81 mg delayed release oral tablet (20 sources) Platelet Aggregation Inhibitor, Nonsteroidal Anti-inflammatory Drug Start: 03-06-2024 End: 03-09-2024 take 81 mg by mouth once daily 81 mg, Oral, Daily, First dose on Sun03/06/24 at 0900, Do not crush, chew, or split., Indications: Atherosclerotic Disease Start: 02-22-2024 End: 02-28-2024 take 81 mg by mouth once daily 81 mg, Oral, Daily, First dose on Sun02/22/24 at 0900, Do not crush, chew, or split., Indications: Atherosclerotic Disease Comment on above: Take 81 mg by mouth once daily. atorvastatin 40 mg oral tablet (20 sources) HMG-CoA Reductase Inhibitor Start: End: take 40 mg by mouth once daily 40 mg, Oral, Daily, First dose on Sun03/06/24 at 0900, Indications: Hyperlipidemia Start: 02-22-2024 End: 02-28-2024 take 40 mg by mouth once daily 40 mg, Oral, Daily, Fir st dose on Sun02/22/24 at 0900, Indications: Hyperlipidemia Start: 01-16-2023 End: 02-15-2023 take 1 tablet by mouth once daily at bedtime atorvastatin (LIPITOR) 40 mg tablet Take 1 tablet by mouth daily at bedtime. 30 tablet 0 01/16/2023 Active Start: 10-02-2021 End: 12-24-2022 take 1 tablet by mouth once daily atorvastatin (LIPITOR) 80 mg tablet Take 1 tablet by mouth every day 30 tablet 2 12/24/2022 Suspended Comment on above: Take 1 tablet by mac th once daily. Take 1 tablet by mac th every day Take 1 tablet by [facility] daily at bedtime. bisacodyl 5 mg delayed release oral tablet (17 sources) Stimulant Laxative Start: 4 End: 4 take 1 tablet by mouth every twenty-four hours as needed for constipation 5 mg, Oral, Daily PRN, constipation, Starting on Sun02/22/24 at 0346, Do not give within 1 hour of antacids, milk, or dairy products. Do not crush, chew, or split. take 10 mg rectal ro quincy every twenty-four hours as needed for constipation bisacodyl (Fleet Bisacodyl) 10 MG/30ML enema Insert 10 mg into the rectum Daily as needed for constipation. 0 Active Comment on above: Take 5 mg by mouth o nce daily as needed for constipation. calcium carbonate 500 mg chewable tablet (15 sources) Start: 3 take 500 mg by mouth every twelve hours as needed calcium carbonate (TUMS) 500 mg chew Take 1 tablet by mouth twice daily as needed (GI upset). 0 01/16/2023 Active Comment on above: Take 1 tablet by mac th twice daily as needed (GI upset). calcium chloride 0.0014 meq/ml / potassium chloride 0.004 meq/ml / sodium chloride 0.103 meq/ml / sodium lactate 0.028 meq/ml injectable solution (1 source) Start: 1 End: 1 IntraVENous, at 75 mL/hr, CONTINUOUS, Starting on 10/02/21 at 0607, For 12 hours ceFAZolin 2000 mg injection (1 source) Cephalosporin Antibacterial Start: 1 End: 1 2,000 mg, IntraVENous, EVERY 8 HOURS, 33 doses, First dose on 10/04/21 at 1800, Last dose on 10/15/21 at 1000 cefdinir 300 mg oral capsule (3 sources) Cephalosporin Antibacterial Start: 4 End: 4 Start: 01-16-2023 End: 01-23-2023 take 1 capsule by mouth twice daily cefdinir (OMNICEF) 300 mg capsule Take 1 capsule by mouth twice daily for 7 days. 14 capsule 0 01/16/2023 01/23/2023 Active Comment on above: Take 1 capsule by [facility] twice daily for 7 days. cefepime (MAXIPIME) 2000 mg IVPB minibag (2 sources) Start: 05-01-2022 End: 05-03-2022 2,000 mg, IntraVENous, at 12.5 mL/hr, Administer over 240 Minutes, EVERY 8 HOURS, First dose on Sun05/01/22 at 0200, For 7 days Start: 04-30-2022 End: 04-30-2022 cefepime (MAXIPIME) 2000 mg IVPB minibag cefTRIAXone sodium 1,000 mg in sodium chloride 0.9 % 100 mL IVPB (add-vantage) (1 source) Start: 05-03-2022 End: 05-05-2022 cefTRIAXone sodium 1,000 mg in sodium chloride 0.9 % 100 mL IVPB (add-vantage) cholecalciferol 9.52 unt/ml / glucose 357 mg/ml oral gel (5 sources) Vitamin D Start: 03-06-2024 End: 03-09-2024 15 g, Oral, As needed, low blood sugar, Starting on Sun03/06/24 at 0300, If blood glucose less than 50 mg/dL and patient ALERT and NOT NPO, give 2 tubes glucose gel. If blood glucose less than 70 mg/dL and patient ALERT and NOT NPO, give 1 tube glucose gel. Repeat blood glucose in 15 minutes. If blood glucose is less than 70 mg/dL, repeat treatment and recheck blood glucose in 15 minutes x2 and notify provider. Start: 02-21-2024 End: 02-28-2024 15 g, Oral, As needed, low b lood sugar, Starting on Sun02/21/24 at 2140, If blood glucose less than 50 mg/dL and patient ALERT and NOT NPO, give 2 tubes glucose gel. If blood glucose less than 70 mg/dL and patient ALERT and NOT NPO, give 1 tube glucose gel. Repeat blood glucose in 15 minutes. If blood glucose is less than 70 mg/dL, repeat treatment and recheck blood glucose in 15 minutes x2 and notify provider. Start: 04-30-2022 15 g, Oral, [place] N, Starting on 04/30/22 at 2010, Until Discontinued, Low blood sugar If blood glucose less than 50 mg/dL and patient ALERT and NOT NPO, give 2 tubes glucose gel. If blood glucose less than 70 mg/dL and patient ALERT and NOT NPO, give 1 tube glucose gel. Repeat blood glucose in 15 minutes. If blood glucose is less than 70 mg/dL, repeat treatment and recheck blood glucose in 15 minutes x2 and notify provider. clobetasol propionate 0.0005 mg/mg topical ointment (20 sources) Corticosteroid Start: 08-26-2022 clobetasol (TE MOVATE) 0.05 % ointment Apply to affected area twice daily. 60 g 1 08/26/2022 Active clobetasol (Baljit vate) 0.05 % cream Indications: Dermatitis Apply topically 2 times daily. 0 Active Comment on above: Apply to affected ar ea twice daily. clopidogrel 75 mg oral tablet (11 sources) [id number] Platelet Inhibitor Start: 05-01-2022 take 75 mg by mouth once daily 75 mg, Oral, DAILY, First dose on Sun05/01/22 at 0900, Until Discontinued Start: 10-02-2021 End: 02-27-2022 take 1 tablet by mouth once daily clopidogrel (PLAVIX) 75 mg tablet TAKE 1 TABLET BY MOUTH EVERY DAY 90 tablet 3 11/16/2021 02/27/2022 Discontinued (Course of therapy completed) Comment on above: TAKE 1 TABLET BY MAC TH EVERY DAY docusate sodium 50 mg / sennosides, [facility] 8.6 mg oral tablet (20 sources) Start: 02-28-2024 End: 02-27-2025 Start: 02-23-2024 End: 02-27-2025 take 1 tablet by mouth twice daily 1 tablet, Oral, 2 t imes daily, First dose on Sun03/06/24 at 0900, Indications: Constipation Start: 02-22-2024 End: 02-23-2024 take 1 tablet by mouth once daily 1 tablet, Oral, Juan M y, First dose on Sun02/22/24 at 0900, Indications: Constipation Start: 01-16-2023 take 1 tablet by mac th every twelve hours as needed senna-docusate (SENNA-S) 8.6-50 mg per tablet Take 1 tablet by mouth twice daily as needed for constipation. 0 01/16/2023 Active Start: 10-04-2021 take 2 tablets by [facility] once daily as needed for constipation 2 tablet, Oral, DAILY PRN, Constipation, Starting on Sun10/04/21 at 1024 Comment on above: Take 1 tablet by [facility] twice daily as needed for constipation. doxycycline monohydrate 100 mg oral capsule (18 sources) Tetracycline-class Drug Start: 03-08-20 End: 03-09-20 take 1 capsule by mouth twice daily doxycycline (Monodox) 100 MG capsule Take 1 capsule (100 mg) by mouth 2 times daily. Take with at least 8 ounces (large glass) of water, do not lie down for 30 minutes after Do not start before March 08, 2024. 0 03/08/2024 03/09/2024 Discontinued (Stop taking at discharge) Start: 03-08-2024 Start: 03-08-2024 Start: 10-26-2022 End: 11-02-2022 take 1 capsule by mouth twice daily doxycycline hyclate (VIBRAMYCIN) 100 mg capsule Take 1 capsule by mouth twice daily for 7 days. 14 capsule 1 10/26/2022 11/02/2022 End: 02-28-2024 take 1 capsule by [facility] twice daily doxycycline hyclate (DOXY-CAPS ORAL) Take 100 mg by mouth twice daily. 0 Suspended Comment on above: Take 1 capsule by [facility] twice daily for 7 days. Take 100 mg by mouth twice daily. 0.5 ml dulaglutide 1.5 mg/ml auto-injector (1 source) GLP-1 Receptor Agonist End: 1 DULCOLAX, BISACODYL, RECTAL (7 sources) take 10 mg rectal route once daily as needed DULCOLAX, BISACODYL, RECTAL 10 mg by RECTAL route once daily as needed. 0 Active Comment on above: 10 mg by RECTAL rout e once daily as needed. empagliflozin 10 mg oral tablet (1 source) Sodium-Glucose Cotransporter 2 Inhibitor End: 1 0.4 ml enoxaparin sodium 100 mg/ml prefilled syringe (4 sources) Low Molecular Weight Heparin Start: 4 End: 4 enoxaparin (Lovenox) syringe 40 mg Start: 02-22-2024 End: 02-28-2024 inject 40 mg by subcutaneous injection every twenty-four hours 40 mg, SubCUTAneous, Every 24 hours scheduled (Daily), First dose on Sun02/22/24 at 0900, Indication of Use: Prophylaxis-DVT/PE, Indications: Prophylaxis of Venous Thromboembolism ergocalciferol 1.25 mg oral capsule (11 sources) Provitamin D2 Compound Start: 02-22-2023 take 1 capsule by mouth every week ergocalciferol 50,000 unit capsule (VITAMIN D2, DRISDOL) Take 1 capsule by mouth one time a week. 0 02/22/2023 Active take 1 capsule by mouth once erg ocalciferol (Vitamin D-2) 1.25 MG (53796 UT) capsule Indications: Vitamin D Deficiency Take 1.25 mg by mouth 1 (one) time per week. Every 0 Active Comment on above: Take 1 capsule by mo [facility] one time a week. ertapenem (2 sources) Penem Antibacterial Start: 4 End: 4 ERTAPENEM SODIUM IJ Inject 1 g as directed Every 24 hours. 0 02/26/2024 03/09/2024 Discontinued (Stop taking at discharge) ertapenem (INVanz) 1,000 mg in sodium chloride 0.9 % 50 mL IVPB Mini-Bag Plus (2 sources) Start: 4 End: 4 ertapenem (INVanz) 1,000 mg in sodium chloride 0.9 % 50 mL IVPB Mini-Bag Plus ezetimibe 10 mg oral tablet (20 sources) Dietary Cholesterol Absorption Inhibitor Start: 1 End: 3 take 1 tablet by mouth once daily ezetimibe (ZETIA) 10 mg tablet Take 1 tablet by mouth every day 30 tablet 1 01/26/2023 Active Comment on above: TAKE 1 TABLET BY MAC TH EVERY DAY famotidine 20 mg oral tablet (8 sources) Histamine-2 Receptor Antagonist Start: 4 End: 4 take 20 mg by mouth once daily 20 mg, Oral, Daily, First dose on Marg[place] 03/06/24 at 0900 Start: 02-22-2024 End: 02-28-2024 take 40 mg by mouth once daily 40 mg, Oral, Daily, Fir st dose on Sun02/22/24 at 0900 take 1 tablet by mac th once daily famotidine (Pepcid) 40 MG tablet Take 40 mg by mouth daily. 0 Active flash glucose scanning reade r (FREESTYLE GABRIELLE 2 READER) (20 sources) flash glucose sc anning reader (FREESTYLE GABRIELLE 2 READER) 1 Each. Use as directed to check blood sugars 3 times daily. Scan FreeStyle Gabrielle 2 sensors at least every 8 hours. 0 Suspended flash glucose sc anning reader (FREESTYLE GABRIELLE 2 READER) 1 Each. Use as directed to check blood sugars 3 times daily. Scan FreeStyle Gabrielle 2 sensors at least every 8 hours. 0 Active Comment on above: 1 Each. Use as direc liliana to check blood sugars 3 times daily. Scan FreeStyle Gabrielle 2 sensors at least every 8 hours. flash glucose sensor (FREESTYLE GABRIELLE 2 SENSOR) kit (20 sources) flash glucose se nsor (FREESTYLE GABRIELLE 2 SENSOR) kit 2 Each. Use as directed to check blood sugars 3 times daily. Scan FreeStyle Gabrielle 2 sensors at least every 8 hours. Replace sensor every 14 days. 0 Suspended flash glucose se nsor (FREESTYLE GABRIELLE 2 SENSOR) kit 2 Each. Use as directed to check blood sugars 3 times daily. Scan FreeStyle Gabrielle 2 sensors at least every 8 hours. Replace sensor every 14 days. 0 Active Comment on above: 2 Each. Use as direc liliana to check blood sugars 3 times daily. Scan FreeStyle Gabrielle 2 sensors at least every 8 hours. Replace sensor every 14 days. 30 actuat fluticasone furoate 0.2 mg/actuat / vilanterol 0.025 mg/actuat dry powder inhaler (20 sources) Corticosteroid, beta2-Adrenergic Agonist Start: 06-09-2022 take 1 puff(s) by mouth once daily fluticasone-vilanter ol (BREO ELLIPTA) 200-25 mcg/dose inhaler Indications: Chronic obstructive pulmonary disease, unspecified COPD type (HCC) Inhale 1 puff by mouth every day as directed 1 Each 06/09/2022 Active Start: 11-10-2021 End: 06-09-2022 fluticasone-vilanterol (BREO ELLIPTA) 200-25 mcg/dose inhaler Indications: Chronic obstructive pulmonary disease, unspecified COPD type ([facility]) Inhale 1 Inhalation as instructed once daily. 60 Each 5 11/10/2021 06/09/2022 Discontinued Comment on above: Inhale 1 Inhalation as instructed once daily. Inhale 1 puff by mac th every day as directed 60 actuat formoterol fumarate 0.005 mg/actuat / mometasone furoate 0.2 mg/actuat metered dose inhaler (3 sources) Corticosteroid, beta2-Adrenergic Agonist Start: 03-06-2024 End: 03-09-2024 take 2 puff(s) by mouth twice daily 2 puff, Inhalation, 2 times daily, First dose on Margy 03/06/24 at 0800, Rinse mouth with water after use to reduce aftertaste and incidence of candidiasis. Do not swallow. Start: 04-30-2022 take 2 puff(s) by in halation twice daily 2 puff, Inhalation, 2 TIMES DAILY, First dose on [place] 04/30/22 at 2030, Until Discontinued Substituted for Fluticasone-Salmeterol (ADVAIR DPI) furosemide 20 mg oral tablet (20 sources) Loop Diuretic Start: 01-16-2023 take 1 tablet by mouth twice daily furosemide (LASIX) 20 mg tablet Take 1 tablet by mouth twice daily. 0 01/16/2023 Active Start: 06-23-2022 End: 08-26-2022 take 2 tablets by mouth once daily furosemide (LASIX) 20 mg tablet Indications: Chronic heart failure with preserved ejection fraction (HFpEF) ([facility]) Take 2 tablets by mouth once daily. 90 tablet 1 06/23/2022 08/11/2022 Discontinued Start: 03-21-2022 End: 06-23-2022 take 1 tablet by mouth once daily furosemide (LASIX) 20 mg tablet Indications: Chronic heart failure with preserved ejection fraction (HFpEF) ([facility]) Take 1 tablet by mouth once daily. 90 tablet 1 03/22/2022 06/23/2022 Discontinued Start: 10-10-2021 End: 03-17-2022 take 1 tablet by mouth once daily furosemide (LASIX) 20 mg tablet Take 20 mg by mouth once daily. 0 10/20/2021 03/17/2022 Discontinued Start: 10-02-2021 End: 10-11-2021 Start: 10-02-2021 40 mg, IntraVE Nous, ONCE, On 10/02/21 at 1345, For 1 dose Comment on above: Take 20 mg by mouth once daily. Take 1 tablet by [facility] once daily. Take 2 tablets by [facility] once daily. TAKE 2 TABLETS BY [facility] EVERY DAY Take 1 tablet by [facility] twice daily. Take 40 mg by mouth twice daily. glucagon (rdna) 1 mg injection (13 sources) Antihypoglycemic Agent Start: 03-06-2024 End: 03-09-2024 1 mg, IntraMUSCular, PRN, low blood sugar, Blood glucose less than 70 mg/dL and patient NOT ALERT or NPO and does not have IV access., Starting on [place] 03/06/24 at 0300, After administration, attempt intravenous access and start D5W at 100 mL/hr. Repeat blood glucose in 15 minutes x2 and notify provider. Start: 02-21-2024 End: 02-28-2024 1 mg, IntraMUSCular, PRN, lo w blood sugar, Blood glucose less than 70 mg/dL and patient NOT ALERT or NPO and does not have IV access., Starting on [place] 02/21/24 at 2140, After administration, attempt intravenous access and start D5W at 100 mL/hr. Repeat blood glucose in 15 minutes x2 and notify provider. Start: 02-15-2023 glucagon 1 mg/ mL injection Inject 1 mg intramuscularly as needed. Use when blood glucose is less than 70 mg/dL (60 mg/dL if ) and patient has no IV access 0 02/15/2023 Active Start: 04-30-2022 take 1 mL intravenou sly every hour 1 mg, IntraMUSCular, PRN, Starting on 04/30/22 at 2010, Until Discontinued, Low blood sugar, Blood glucose less than 70 mg/dL and patient NOT ALERT or NPO and does not have IV access. After administration, attempt intravenous access and start D5W at 100 mL/hr. Repeat blood glucose in 15 minutes x2 and notify provider. Start: 10-02-2021 take 1 mL intravenou sly every hour 1 mg, IntraMUSCular, PRN, Low blood sugar, Blood glucose less than 70 mg/dL and patient NOT ALERT or NPO and does not have IV access., Starting on [place] 10/02/21 at 0606 After administration, attempt intravenous access and start D5W at 100 mL/hr. Repeat blood glucose in 15 minutes x2 and notify provider. Comment on above: Inject 1 mg intramus cularly as needed. Use when blood glucose is less than 70 mg/dL (60 mg/dL if ) and patient has no IV access 150 ml glucose 50 mg/ml injection (20 sources) Start: 03-06-2024 End: 03-09-2024 12.5 g, IntraVENous, PRN, low blood sugar, Blood glucose less than 70 mg/dL and patient NOT ALERT or NPO., Starting on [place] 03/06/24 at 0300, If patient does not respond within 5 minutes, repeat dose x1. Start D5W at 100 mL/hour until ordering provider can be reached. Repeat blood glucose in 15 minutes. If blood glucose is less than 70 mg/dL, repeat treatment and recheck blood glucose in 15 minutes x2. If using Glucostabilizer, dose as instructed per system. Start: 03-06-2024 End: 03-09-2024 100 mL/hr, IntraVENous, PRN, Blood sugar less than 70mg/dL, Starting on [facility] 03/06/24 at 0300, Start infusion following administration of dextrose 50% or glucagon. Start: 02-21-2024 End: 02-28-2024 12.5 g, IntraVENous, PRN, lo w blood sugar, Blood glucose less than 70 mg/dL and patient NOT ALERT or NPO., Starting on [facility] 02/21/24 at 2140, If patient does not respond within 5 minutes, repeat dose x1. Start D5W at 100 mL/hour until ordering provider can be reached. Repeat blood glucose in 15 minutes. If blood glucose is less than 70 mg/dL, repeat treatment and recheck blood glucose in 15 minutes x2. If using Glucostabilizer, dose as instructed per system. Start: 02-21-2024 End: 02-28-2024 100 mL/hr, IntraVENous, PRN, Blood sugar less than 70mg/dL, Starting on [facility] 02/21/24 at 2140, Start infusion following administration of dextrose 50% or glucagon. Start: 02-15-2023 dextrose (TRUE PLUS) 15 gram/32 mL oral gel Take 32 mL by mouth as needed. Use when blood glucose is less than 70 mg/dL (60 mg/dL if ) and patient demonstrates diminished level of consciousness but is able to swallow without risk of aspiration Each 32 mL PACKET of dextrose oral gel delivers a DOSE = 15 GRAMS of CARBOHYDRATE --- Administer ONLY if the patient is awake/alert and able to swallow. 0 02/15/2023 Active Start: 04-30-2022 100 mL/hr, Int raVENous, PRN, Blood sugar less than 70mg/dL, Starting on 04/30/22 at 2010 Start infusion following administration of dextrose 50% or glucagon. Start: 04-30-2022 12.5 g, IntraV ENous, PRN, Starting on 04/30/22 at 2010, Until Discontinued, Low blood sugar, Blood glucose less than 70 mg/dL and patient NOT ALERT or NPO. If patient does not respond within 5 minutes, repeat dose x1. Start D5W at 100 mL/hour until ordering provider can be reached. Repeat blood glucose in 15 minutes. If blood glucose is less than 70 mg/dL, repeat treatment and recheck blood glucose in 15 minutes x2. Start: 10-02-2021 15 g, Oral, [place] N, Low blood sugar, Starting on 10/02/21 at 0606 If blood glucose less than 50 mg/dL and patient ALERT and TOLERATING PO, give 2 tubes glucose gel. If blood glucose less than 70 mg/dL and patient ALERT and TOLERATING PO, give 1 tube glucose gel. Repeat blood glucose in 15 minutes. If blood glucose is less than 70 mg/dL, repeat treatment and recheck blood glucose in 15 minutes x2 and notify provider. Start: 10-02-2021 12.5 g, IntraV ENous, PRN, Low blood sugar, Blood glucose less than 70 mg/dL and patient NOT ALERT or NPO., Starting on 10/02/21 at 0606 If patient does not respond within 5 minutes, repeat dose x1. Start D5W at 100 mL/hour until ordering provider can be reached. Repeat blood glucose in 15 minutes. If blood glucose is less than 70 mg/dL, repeat treatment and recheck blood glucose in 15 minutes x2. If using Glucostabilizer, dose as instructed per system. Start: 10-02-2021 100 mL/hr, Int raVENous, PRN, Low blood sugar, Starting on 10/02/21 at 0606 Start infusion following administration of dextrose 50% or glucagon. Comment on above: Take 32 mL by mouth as needed. Use when blood glucose is less than 70 mg/dL (60 mg/dL if ) and patient demonstrates diminished level of consciousness but is able to swallow without risk of aspiration Each 32 mL PACKET of dextrose oral gel delivers a DOSE = 15 GRAMS of CARBOHYDRATE --- Administer ONLY if the patient is awake/alert and able to swallow. 1 ml heparin sodium, porcine 5000 unt/ml prefilled syringe (2 sources) Unfractionated Heparin, Anti-coagulant Start: 04-30-20 inject 1 dose by subcutaneous injection three times daily 5,000 Units, SubCUTAneous, EVERY 8 HOURS SCHEDULED (3 times per day), First dose on 04/30/22 at 2200, Until Discontinued Start: 10-02-2021 inject 1 dose by sub cutaneous injection three times daily 5,000 Units, SubCUTAneous, EVERY 8 HOURS SCHEDULED (3 times per day), First dose on 10/02/21 at 0607 hydrOXYzine pamoate 25 mg oral capsule (20 sources) Antihistamine Start: 03-06-2024 End: 03-09-2024 take 25 mg by mouth every eight hours as needed 25 mg, Oral, Every 8 hours PRN, itching, Starting on [place] 03/06/24 at 1034, Indications: Atopic Dermatitis Start: 2022 End: 11-29-2022 take 1 tablet by mouth three times daily as needed hydrOXYzine HCl (ATARAX) 25 mg tablet Indications: Ecthyma TAKE 1 TABLET BY MOUTH THREE TIMES DAILY NEEDED FOR ITCHING/RASH (FOR ITCHING). 90 tablet 0 11/29/2022 Active take 1 tablet by mac th every eight hours as needed hydrOXYzine HCl (Atarax) 25 MG tablet Indications: Atopic Dermatitis Take 25 mg by mouth every 8 hours as needed for itching. 0 Active Comment on above: Take 1 tablet by mouth three times daily as needed for itching/rash (for itching). 3 ml insulin aspart, human 100 unt/ml pen injector (2 sources) Insulin Analog End: 10-08-20 3 ml insulin detemir 100 unt/ml pen injector (20 sources) Insulin Analog Start: 10-28-20 inject 60 [IU] by subcutaneous injection in the morning insulin detemir U-100 (LEVEMIR FLEXTOUCH U-100 INSULIN) 100 unit/mL (3 mL) injection pen Indications: Type 2 diabetes mellitus with diabetic polyneuropathy, with long-term current use of insulin (HCC) Inject 60 units subcutaneously in the AM, 60 units subcutaneously in the PM 120 mL 3 10/28/2022 Active Start: 06-12-2022 End: 10-26-2022 inject 50 [IU] by subcutaneous injection in the morning, then inject 80 [IU] by subcutaneous injection in the evening insulin detemir U-100 (LEVEMIR FLEXTOUCH U-100 INSULIN) 100 unit/mL (3 mL) injection pen Indications: Type 2 diabetes mellitus with diabetic polyneuropathy, with long-term current use of insulin (HCC) Inject 50 units subcutaneously in the AM, 80 units subcutaneously in the PM 120 mL 3 07/06/2022 10/26/2022 Discontinued Start: 05-23-2022 inject 48 [IU] by stahl bcutaneous injection in the morning, then inject 80 [IU] by subcutaneous injection in the evening insulin detemir U-100 (LEVEMIR FLEXTOUCH U-100 INSULIN) 100 unit/mL (3 mL) injection pen Inject 48 units subcutaneously in the AM, 80 units subcutaneously in the PM 0 05/23/2022 Active Start: 05-10-2022 End: 05-23-2022 inject 60 [IU] by subcutaneous injection in the morning, then inject 77 [IU] by subcutaneous injection in the evening insulin detemir U-100 (LEVEMIR FLEXTOUCH U-100 INSULIN) 100 unit/mL (3 mL) injection pen Inject 60 units subcutaneously in the AM, 77 units subcutaneously in the PM 15 Pen 3 05/10/2022 05/23/2022 Discontinued (Adjust Sig - Block E-Cancel) Start: 04-14-2022 End: 05-10-2022 inject 78 [IU] by subcutaneous injection in the morning, then inject 85 [IU] by subcutaneous injection in the evening insulin detemir U-100 (LEVEMIR FLEXTOUCH U-100 INSULIN) 100 unit/mL (3 mL) injection pen Inject 78 units subcutaneously in the AM, 85 units subcutaneously in the PM 0 04/14/2022 05/10/2022 Discontinued Start: 03-22-2022 End: 04-14-2022 insulin detemir U-100 (LEVEM IR FLEXTOUCH U-100 INSULIN) 100 unit/mL (3 mL) injection pen Inject 78 units subcutaneously twice daily 20 Pen 3 03/22/2022 04/14/2022 Discontinued (Adjust Sig - Block E-Cancel) Start: 02-28-2022 End: 03-22-2022 insulin detemir U-100 (LEVEM IR FLEXTOUCH U-100 INSULIN) 100 unit/mL (3 mL) injection pen Inject 55 units subcutaneously twice daily 0 02/28/2022 03/22/2022 Discontinued Start: 01-13-2022 End: 02-28-2022 insulin detemir U-100 (LEVEM IR FLEXTOUCH U-100 INSULIN) 100 unit/mL (3 mL) injection pen Inject 46 units subcutaneously twice daily 10 Pen 3 02/15/2022 02/28/2022 Discontinued (Adjust Sig - Block E-Cancel) Comment on above: Inject 46 units subc utaneously twice daily Inject 55 units subc utaneously twice daily Inject 78 units subc utaneously twice daily Inject 78 units subc utaneously in the AM, 85 units subcutaneously in the PM Inject 60 units subc utaneously in the AM, 77 units subcutaneously in the PM Inject 48 units subc utaneously in the AM, 80 units subcutaneously in the PM Inject 50 units subc utaneously in the AM, 80 units subcutaneously in the PM Inject 60 units subc utaneously in the AM, 60 units subcutaneously in the PM insulin glargine 100 unt/ml injectable solution (20 sources) Insulin Analog Start: 03-08-2024 End: 03-09-2024 insulin glargine (Lantus) injection 25 Units Start: 03-06-2024 End: 03-07-2024 50 Units, SubCUTAneous, 2 ti mes daily, First dose on [place] 03/06/24 at 0900, Indications: Type 2 Diabetes Mellitus Start: 02-28-2024 End: 02-27-2025 inject 50 [IU] by subcutaneous injection twice daily insulin glargine (Lantus) 100 UNIT/ML injection Indications: Type 2 Diabetes Mellitus Inject 50 Units under the skin 2 times daily. 0 02/28/2024 02/27/2025 Active Start: 02-22-2024 End: 02-27-2025 Start: 05-06-2022 insulin glargi ne (LANTUS) 100 UNIT/ML injection vial Inject 28 Units into the skin 2 times daily 10 mL 3 05/06/2022 Active Start: 04-30-2022 End: 02-27-2025 Start: 10-08-2021 End: 05-06-2022 insulin glargine (LANTUS) 10 0 UNIT/ML injection vial Inject 25 Units into the skin 2 times daily 10 mL 3 10/08/2021 05/06/2022 Discontinued (Stop Taking at Discharge) Start: 10-08-2021 End: 10-08-2021 inject 25 [IU] by subcutaneous injection twice daily 25 Units, SubCUTAneous, 2 TIMES DAILY, First dose (after last modification) on 10/08/21 at 2100 Start: 10-07-2021 End: 10-08-2021 inject 30 [IU] by subcutaneous injection twice daily 30 Units, SubCUTAneous, 2 TIMES DAILY, First dose (after last modification) on 10/07/21 at 2100 Start: 10-06-2021 End: 10-07-2021 inject 50 [IU] by subcutaneous injection twice daily 50 Units, SubCUTAneous, 2 TIMES DAILY, First dose (after last modification) on [place] 10/06/21 at 2100 Start: 10-02-2021 End: 10-06-2021 inject 64 [IU] by subcutaneous injection twice daily 64 Units, SubCUTAneous, 2 TIMES DAILY, First dose (after last modification) on 10/02/21 at 2100 Start: 10-02-2021 inject 34 [IU] by stahl bcutaneous injection once 34 Units, SubCUTAneous, ONCE, On 10/02/21 at 1345, For 1 dose Start: 10-02-2021 End: 10-02-2021 inject 30 [IU] by subcutaneous injection twice daily 30 Units, SubCUTAneous, 2 TIMES DAILY, First dose on 10/02/21 at 0900 insulin lispro 100 unt/ml injectable solution (20 sources) Insulin Analog Start: 02-15-2023 insulin lispro 100 unit/mL injection Check sugars before meals If Blood Glucose (mg/dL) is: Less than 150 Give 0 units 151-200 Give 1 unit 201-250 Give 2 units 251-300 Give 3 units 301-350 Give 4 units 351-400 Give 5 units Greater than 400 Give 5 units and Notify Provider Notify provider if 2 consecutive blood glucose values in the previous 24 hours are greater than 250 mg/dL and there have been no changes to the insulin regimen in the previous 24 hours. 0 02/15/2023 Active Start: 10-28-2022 inject 40 [IU] by stahl bcutaneous injection before breakfast, then inject 40 [IU] by subcutaneous injection before lunch, then inject 40 [IU] by subcutaneous injection before dinner insulin lispro (HUMALOG KWIKPEN INSULIN) 200 unit/mL (3 mL) injection Indications: Type 2 diabetes mellitus with diabetic polyneuropathy, with long-term current use of insulin (HCC) Inject 40 units subcutaneously before breakfast, 40 units subcutaneously before lunch, 40 units subcutaneously before dinner. Administer this within 15 minutes before your meals or immediately after your meals. 60 mL 3 10/28/2022 Active Start: 07-06-2022 End: 10-26-2022 inject 40 [IU] by subcutaneous injection before breakfast, then inject 40 [IU] by subcutaneous injection before lunch, then inject 40 [IU] by subcutaneous injection before dinner insulin lispro (HUMALOG KWIKPEN INSULIN) 200 unit/mL (3 mL) injection Indications: Type 2 diabetes mellitus with diabetic polyneuropathy, with long-term current use of insulin (HCC) Inject 40 units subcutaneously before breakfast, 40 units subcutaneously before lunch, 40 units subcutaneously before dinner. Administer this within 15 minutes before your meals or immediately after your meals. 60 mL 3 07/06/2022 10/26/2022 Discontinued Start: 05-23-2022 End: 07-06-2022 inject 44 [IU] by subcutaneous injection before breakfast, then inject 44 [IU] by subcutaneous injection before lunch, then inject 44 [IU] by subcutaneous injection before dinner insulin lispro (HUMALOG KWIKPEN INSULIN) 200 unit/mL (3 mL) injection Inject 44 units subcutaneously before breakfast, 44 units subcutaneously before lunch, 44 units subcutaneously before dinner. Administer this within 15 minutes before your meals or immediately after your meals. 0 05/23/2022 07/06/2022 Discontinued Start: 05-10-2022 End: 05-23-2022 inject 40 [IU] by subcutaneous injection before breakfast, then inject 40 [IU] by subcutaneous injection before lunch, then inject 40 [IU] by subcutaneous injection before dinner insulin lispro (HUMALOG KWIKPEN INSULIN) 200 unit/mL (3 mL) injection Inject 40 units subcutaneously before breakfast, 40 units subcutaneously before lunch, 40 units subcutaneously before dinner. Administer this within 15 minutes before your meals or immediately after your meals. 10 Pen 3 05/10/2022 05/23/2022 Discontinued (Adjust Sig - Block E-Cancel) Start: 04-30-2022 0-6 Units, Sub CUTAneous, NIGHTLY, First dose on 04/30/22 at 2100, Until Discontinued If continuous tube feedings/TPN/NPO, give correction dose based on result, no reduction in dose. If eating or bolus tube feeding: Medium Dose Corrective Algorithm Glucose: Dose: If <139 & nbsp; No Insulin 140-199 &nb sp; &n bsp; 1 Unit 200-249 &nbsp ; 2 Units 250-299 &nbsp ; &nbs p; 3 Units 300-349 &nbsp ; &nbs p; 4 Units 350-400 &nbsp ; &nbs p; 5 Units Above 400 &nbs p; 6 Units Start: 03-22-2022 End: 05-10-2022 inject 50 [IU] by subcutaneous injection before breakfast, then inject 50 [IU] by subcutaneous injection before lunch, then inject 50 [IU] by subcutaneous injection before dinner HUMALOG KWIKPEN INSULIN 200 unit/mL (3 mL) injection INJECT 50 UNITS SUBCUTANEOUSLY BEFORE BREAKFAST, 50 UNITS SUBCUTANEOUSLY BEFORE LUNCH, 50 UNITS SUBCUTANEOUSLY BEFORE DINNER. ADMINISTER THIS WITHIN 15 MINUTES BEFORE YOUR MEALS OR IMMEDIATELY AFTER YOUR MEALS. 10 Pen 3 03/28/2022 05/10/2022 Discontinued Start: 03-08-2022 End: 03-22-2022 inject 42 [IU] by subcutaneous injection before breakfast, then inject 42 [IU] by subcutaneous injection before lunch, then inject 42 [IU] by subcutaneous injection before dinner insulin lispro (HUMALOG KWIKPEN INSULIN) 100 unit/mL Inject 42 units subcutaneously before breakfast, 42 units subcutaneously before lunch, 42 units subcutaneously before dinner. Administer this within 15 minutes before your meals or immediately after your meals. 0 03/08/2022 03/22/2022 Discontinued (Clinical Decision) Start: 02-28-2022 End: 03-08-2022 inject 35 [IU] by subcutaneous injection before breakfast, then inject 35 [IU] by subcutaneous injection before lunch, then inject 35 [IU] by subcutaneous injection before dinner insulin lispro (HUMALOG KWIKPEN INSULIN) 100 unit/mL Inject 35 units subcutaneously before breakfast, 35 units subcutaneously before lunch, 35 units subcutaneously before dinner. Administer this within 15 minutes before your meals or immediately after your meals. 0 02/28/2022 03/08/2022 Discontinued (Adjust Sig - Block E-Cancel) Start: 01-06-2022 End: 02-28-2022 inject 29 [IU] by subcutaneous injection before breakfast, then inject 29 [IU] by subcutaneous injection before lunch, then inject 29 [IU] by subcutaneous injection before dinner insulin lispro (HUMALOG KWIKPEN INSULIN) 100 unit/mL Inject 29 units subcutaneously before breakfast, 29 units subcutaneously before lunch, 29 units subcutaneously before dinner. Administer this within 15 minutes before your meals or immediately after your meals. 10 Pen 3 01/06/2022 02/28/2022 Discontinued (Adjust Sig - Block E-Cancel) Start: 10-08-2021 End: 05-06-2022 insulin lispro (HUMALOG) 100 UNIT/ML injection vial Inject 10 Units into the skin 3 times daily (with meals) 10 mL 3 10/08/2021 05/06/2022 Discontinued (Stop Taking at Discharge) Start: 10-08-2021 Start: 10-03-2021 End: 10-07-2021 inject 26 [IU] by subcutaneous injection twice daily at breakfast 26 Units, SubCUTAneous, 2 TIMES DAILY WITH MEALS, First dose (after last modification) on Sun10/05/21 at 0800 P&T approved therapeutic substitution for Insulin Aspart (w/Niacinamide) &nbs p; >> The patient takes the 26 units BID with Breakfast and Lunch << (verified by RN with patient) << Start: 10-02-2021 End: 10-07-2021 0-9 Units, SubCUTAneous, NIG HTLY, First dose on Sun10/02/21 at 2100 If continuous tube feedings/TPN/NPO, give correction dose based on result, no reduction in dose. If eating or bolus tube feeding: High Dose Corrective Algorithm Glucose: Dose: 70-139 &nbsp ; &nbs p;No Insulin 140-199 &nb sp; &nbs p; 2 Units 200-249 3 Units 250-299 5 Units 300-349 6 Units 350-400 7 Units Over 400 9 Units Start: 10-02-2021 End: 10-02-2021 inject 26 [IU] by subcutaneous injection once daily before lunch 26 Units, SubCUTAneous, DAILY BEFORE LUNCH, First dose on Sun10/02/21 at 1200 Start: 10-02-2021 End: 02-28-2024 0-12 Units, SubCUTAneous, 3 TIMES DAILY WITH MEALS, First dose on Sun05/01/22 at 0800, Until Discontinued Medium Dose Corrective Algorithm Glucose: Dose: If <139 & nbsp; No Insulin 140-199 2 Units 200-249 4 Units 250-299 6 Units 300-349 8 Units 350-400 10 Units Above 400 &n bsp; 12 Units Comment on above: Inject 29 units subc utaneously before breakfast, 29 units subcutaneously before lunch, 29 units subcutaneously before dinner. Administer this within 15 minutes before your meals or immediately after your meals. Inject 35 units subc utaneously before breakfast, 35 units subcutaneously before lunch, 35 units subcutaneously before dinner. Administer this within 15 minutes before your meals or immediately after your meals. Inject 42 units subc utaneously before breakfast, 42 units subcutaneously before lunch, 42 units subcutaneously before dinner. Administer this within 15 minutes before your meals or immediately after your meals. Inject 50 units subc utaneously before breakfast, 50 units subcutaneously before lunch, 50 units subcutaneously before dinner. Administer this within 15 minutes before your meals or immediately after your meals. Inject 40 units subc utaneously before breakfast, 40 units subcutaneously before lunch, 40 units subcutaneously before dinner. Administer this within 15 minutes before your meals or immediately after your meals. Inject 44 units subc utaneously before breakfast, 44 units subcutaneously before lunch, 44 units subcutaneously before dinner. Administer this within 15 minutes before your meals or immediately after your meals. Check sugars before meals If Blood Glucose (mg/dL) is: Less than 150 Give 0 units 151-200 Give 1 unit 201-250 Give 2 units 251-300 Give 3 units 301-350 Give 4 units 351-400 Give 5 units Greater than 400 Give 5 units and Notify Provider Notify provider if 2 consecutive blood glucose values in the previous 24 hours are greater than 250 mg/dL and there have been no changes to the insulin regimen in the previous 24 hours. Insulin Lispro (Humalog) injection 0-6 Units (2 sources) Start: End: Insulin Lispro (Humalog) injection 0-6 Units insulin lispro (HUMALOG) injection vial 12 Units (1 source) Start: inject 12 [IU] by subcutaneous injection three times daily at mealtime 12 Units, SubCUTAneous, 3 TIMES DAILY WITH MEALS, First dose on Sun05/01/22 at 0800, Until Discontinued 24 hr isosorbide mononitrate 30 mg extended release oral tablet (20 sources) Nitrate Vasodilator Start: End: take 1 tablet by mouth once daily 30 mg, Oral, Daily, First dose on Sun03/06/24 at 0900, Do not chew or crush ER tablets; may be divided in half. Due to insoluble matrix embedding, ER tablets that are scored may be split., Indications: Stable Angina Pectoris Start: 02-22-2024 End: 02-28-2024 take 1 tablet by mouth once daily 30 mg, Oral, Daily, First dose on Sun02/22/24 at 0900, Do not chew or crush ER tablets; may be divided in half. Due to insoluble matrix embedding, ER tablets that are scored may be split., Indications: Stable Angina Pectoris Start: 05-18-2023 take 1 tablet by mac th once daily isosorbide mononitrate ER (IMDUR) 30 mg 24 hr tablet Take 1 tablet by mouth every day 30 tablet 0 05/18/2023 Active Start: 02-24-2021 End: 07-17-2022 take 1 tablet by mouth once daily isosorbide mononitrate ER (IMDUR) 30 mg 24 hr tablet TAKE 1 TABLET BY MOUTH EVERY DAY 90 tablet 1 07/17/2022 Active Comment on above: Take 1 tablet by mac th once daily. TAKE 1 TABLET BY MAC TH EVERY DAY ketoconazole 20 mg/ml topical cream (2 sources) Azole Antifungal Start: 02-22-2024 End: 02-28-2024 Topical, 2 times daily, First dose on Sun02/22/24 at 2100, Apply to bilateral breasts yeast infection of skin twice daily continue 30 days after odor resolves. 10 ml lidocaine hydrochloride 10 mg/ml injection (2 sources) Antiarrhythmic, Amide Local Anesthetic Start: 02-27-2024 End: 02-27-2024 As needed, Starting on Sun02/27/24 at 1045, Intraprocedure linagliptin 5 mg oral tablet (20 sources) Dipeptidyl Peptidase 4 Inhibitor Start: 03-06-2024 End: 03-09-2024 5 mg, Oral, Daily, First dose on Sun03/06/24 at 0900, Indications: Type 2 Diabetes Mellitus Start: 12-16-2021 End: 07-06-2022 take 1 tablet by mouth once daily linaGLIPtin (TRADJENTA) 5 mg tab Take 1 tablet by mouth once daily. 30 tablet 07/06/2022 Active Comment on above: Take 1 tablet by mac once daily. losartan potassium 50 mg oral tablet (20 sources) Angiotensin 2 Receptor Ирина Start: 1 End: 3 take 1 tablet by mouth once daily losartan (COZAAR) 50 mg tablet Take 1 tablet by mouth every day 30 tablet 2 12/24/2022 Active Comment on above: Take 1 tablet by mac once daily. Take 1 tablet by mac every day Take 50 mg by mouth once daily. magnesium hydroxide 80 mg/ml oral suspension (7 sources) take 30 mL by mouth once daily as needed magnesium hydroxide (MILK OF MAGNESIA) 400 mg/5 mL suspension Take 30 mL by mouth once daily as needed. 0 Active Comment on above: Take 30 mL by mouth once daily as needed. methenamine hippurate 1000 mg oral tablet (20 sources) Start: End: 4 1 g, Oral, 2 times daily, First dose on Sun03/06/24 at 0900 Start: 02-22-2024 End: 02-28-2024 1 g, Oral, 2 times daily, Fi rst dose on Sun02/22/24 at 0900 Start: 08-26-2022 End: 10-29-2022 take 1 tablet by mouth twice daily Methenamine Hippurate (HIPREX) 1 gram tablet Indications: Recurrent UTI (urinary tract infection) Take 1 tablet by mouth twice daily. 60 tablet 0 09/29/2022 10/29/2022 Comment on above: Take 1 tablet by mac twice daily for 14 days. Take 1 tablet by mac twice daily. Take 1 g by mouth tw ice daily with meals. 24 hr metoprolol succinate 25 mg extended release oral tablet (20 sources) beta-Adrenergic Ирина Start: 03-06-2024 End: 03-09-2024 take 25 mg by mouth once daily 25 mg, Oral, Daily, First dose on Sun03/06/24 at 0900, Do not crush or chew., Indications: Heart Failure Start: 02-22-2024 End: 02-28-2024 take 25 mg by mouth once daily 25 mg, Oral, Daily, Fir st dose on Sun02/22/24 at 0900, Do not crush or chew., Indications: Heart Failure Start: 10-02-2021 End: 10-06-2022 take 1 tablet by mouth once daily metoprolol succinate ER (TOPROL XL) 25 mg 24 hr tablet Indications: Acute on chronic diastolic CHF (congestive heart failure) (HCC) Take 1 tablet by mouth every day 90 tablet 1 10/06/2022 Active Comment on above: Take 1 tablet by mac once daily. [facility] by [facility] Multivitamins-Minerals -Lutein (MULTIVITAMIN 50 PLUS) tab (7 sources) End: 02-27-2022 Usfojexgmzkxx-Qsmilosa-Xfx ein (MULTIVITAMIN 50 PLUS) tab Take 1 tablet by mouth once daily. 0 02/27/2022 Discontinued (Course of therapy completed) Multivitamins-Mi nerals-Lutein (MULTIVITAMIN 50 PLUS) tab Take 1 tablet by mouth once daily. 0 Active Comment on above: Take 1 tablet by mac once daily. mupirocin 0.02 mg/mg topical ointment (20 sources) RNA Synthetase Inhibitor Antibacterial Start: 10-08-2021 End: 09-05-2022 mupirocin (BACTROBAN) 2 % ointment as needed. 0 10/08/2021 2022 Discontinued (Other) Start: 10-04-2021 apply 1 dose topically once da rachana Topical, DAILY, First dose on Sun10/04/21 at 1400 Apply to left anterior foot wound daily cover with dry dressing. Comment on above: as needed. Apply 1 application to affected area three times daily for 10 days. 1 ml naloxone hydrochloride 0.4 mg/ml injection (4 sources) Opioid Antagonist Start: 03-06-2024 End: 03-09-2024 naloxone (Narcan) injection 0.4 mg Start: 02-22-2024 End: 02-28-2024 0.4 mg, IntraVENous, Every 5 min PRN, opioid reversal, respiratory depression, Starting on Sun02/22/24 at 0355, +++ For RR <10, pinpoint pupils, over sedation for opioid reversal - MUST notify armature connector provider immediately after first dose, may give IM or SQ if no IV access +++ nitroglycerin 0.4 mg sublingual tablet (20 sources) Nitrate Vasodilator Start: 02-24-2021 End: 02-27-2022 nitroglycerin sublingual (NITROQUICK) 0.4 mg SL tablet Dissolve 1 tablet under the tongue as needed for chest pain. If no pain relief call 911. 25 Bottle of 25 3 02/27/2022 Active Comment on above: Dissolve 1 tablet un kenan the tongue as needed for Chest Pain. If no pain relief call 911. nystatin 100 unt/mg topical powder (5 sources) Polyene Antifungal Start: 07-20-2022 End: 08-03-2022 nystatin (MYCOSTATIN) powder Indications: Dermatitis associated with moisture Apply 1 application to affected area three times daily for 14 days. 30 g 1 07/20/2022 08/03/2022 Comment on above: Apply 1 application to affected area three times daily for 14 days. omeprazole 20 mg delayed release oral capsule (20 sources) Proton Pump Inhibitor Start: 10-27-2021 End: 09-05-2022 take 1 capsule by mouth once daily omeprazole (PRILOSEC) 20 mg capsule Take 1 capsule by mouth once daily. 90 capsule 2 10/27/2021 09/05/2022 Discontinued Comment on above: Take 1 capsule by [facility] once daily. pantoprazole 40 mg delayed release oral tablet (20 sources) Proton Pump Inhibitor Start: 10-02-2021 take 40 mg by mouth once daily before breakfast 40 mg, Oral, DAILY BEFORE BREAKFAST, First dose on Sun05/01/22 at 0700, Until Discontinued Do not crush or break. Substituted for Omeprazole (PRILOSEC). Comment on above: Take 40 mg by mouth once daily. polyethylene glycol 3350 34026 mg powder for oral solution (20 sources) Osmotic Laxative Start: 03-06-2024 End: 03-09-2024 take 17 g by mouth every twenty-four hours as needed for constipation polyethylene glycol (PEG) 3350 (Miralax) packet 17 g Start: 02-21-2024 End: 02-28-2024 take 17 g by mouth every twenty-four hours as needed for constipation 17 g, Oral, Daily PRN, constipation, Starting on Margy 02/21/24 at 2140, 1st line for treatment of constipation - give scheduled if no bowel movement in past 24 hours. Start: 01-17-2023 polyethylene g lycol 3350 17 gram packet Take 1 Packet by mouth once daily. Dissolve dose in 4 - 8 ounces of liquid and take as directed. 0 01/17/2023 Active Start: 02-10-2021 End: 2022 take 1 dose by mouth once daily as needed for constipation polyethylene glycol 3350 (MIRALAX, GLYCOLAX) 17 gram packet Take 1 Packet by mouth once daily as needed (constipation). 30 Packet 1 02/10/2021 2022 Discontinued (Discontinued by Patient) Comment on above: Take 1 Packet by mac once daily as needed (constipation). Take 1 Packet by [facility] daily. Dissolve dose in 4 - 8 ounces of liquid and take as directed. potassium bicarbonate 25 meq effervescent oral tablet (1 source) Start: 2021 End: 2021 potassium bicarbonate (K-LYTE) disintegrating tablet 50 mEq microencapsulated potassium chloride 10 meq extended release oral tablet (2 sources) Start: 2023 End: 2023 10 mEq, Oral, Daily, First dose on Sun02/24/24 at 0930, Best given with food and plenty of water to minimize gastric irritation. Do not crush or chew. potassium-sodium phosphates (PHOS-NAK) 280-160-250 mg pwpk (4 sources) Start: 2022 take 1 dose by mouth three times daily at mealtime potassium-sodium phosphates (PHOS-NAK) 280-160-250 mg pwpk Take 1 Packet by mouth three times daily with meals for 10 days. 30 Each 0 01/16/2023 Active Start: 01-16-2023 End: 01-26-2023 take 1 dose by mouth three times daily at mealtime potassium-sodium phosphates (PHOS-NAK) 280-160-250 mg pwpk Take 1 Packet by mouth three times daily with meals for 10 days. 30 Each 0 01/16/2023 01/26/2023 Active Comment on above: Take 1 Packet by mac th three times daily with meals for 10 days. promethazine hydrochloride 25 mg oral tablet (9 sources) Phenothiazine Start: 01-17-20 take 1 tablet by mouth every six hours as needed promethazine (PHENERGAN) 25 mg tablet Take 1 tablet by mouth every 6 hours as needed for nausea/vomiting (hold if lethargic). 0 01/16/2023 Active Start: 04-30-2022 take 12.5 mg by mout h every six hours as needed 12.5 mg, Oral, EVERY 6 HOURS PRN, Starting on 04/30/22 at 2010, Until Discontinued, Nausea, Vomiting Comment on above: Take 1 tablet by mac th every 6 hours as needed for nausea/vomiting (hold if lethargic). psyllium 3400 mg powder for oral suspension (20 sources) Start: 2 End: 3 take 1 dose by mouth once daily psyllium husk, with sugar, (METAMUCIL) 3.4 gram packet Indications: Chronic constipation Take 1 Packet by mouth once daily. 90 Packet 0 06/23/2022 11/10/2022 Discontinued Comment on above: Take 1 Packet by mac th once daily. QUEtiapine 25 mg oral tablet (4 sources) Atypical Antipsychotic Start: 4 End: 4 12 hr ranolazine 500 mg extended release oral tablet (20 sources) Anti-anginal Start: 4 End: 4 take 1000 mg by mouth twice daily 1,000 mg, Oral, 2 times daily, First dose on Margy 03/06/24 at 0900, Do not crush, chew, or split., Indications: Stable Angina Pectoris Start: 02-22-2024 End: 02-28-2024 take 1000 mg by mouth twice daily 1,000 mg, Oral, 2 times daily, First dose on Sun02/22/24 at 0900, Do not crush, chew, or split., Indications: Stable Angina Pectoris Start: 01-05-2023 End: 01-05-2023 take 1 tablet by mouth twice daily ranolazine SR (RANEXA) 1,000 mg tab ER 12 hr Take 1 tablet by mouth twice daily. 180 tablet 1 01/05/2023 Active Start: 04-30-2022 take 1000 mg by mout h twice daily 1,000 mg, Oral, 2 TIMES DAILY, First dose on 04/30/22 at 2100, Until Discontinued Do not crush or break. Start: 10-12-2021 End: 02-15-2022 ranolazine ER (RANEXA) 500 m g 12 hr tablet Start: 10-02-2021 take 1000 mg by mout h twice daily 1,000 mg, Oral, 2 TIMES DAILY, First dose on 10/02/21 at 2100 Do not crush or break. take 2 tablets by mo uth twice daily ranolazine (RANEXA) 500 MG extended release tablet Take 1,000 mg by mouth 2 times daily 0 Active Comment on above: Take 1,000 mg by mac th twice daily. Take 1 tablet by mac th twice daily. simethicone 80 mg chewable tablet (11 sources) Start: 04-30-2022 take 80 mg by mouth every six hours as needed 80 mg, Oral, EVERY 6 HOURS PRN, Starting on 04/30/22 at 2010, Until Discontinued, Flatulence Start: 10-06-2021 End: 02-27-2022 take 1 tablet by mouth every six hours as needed simethicone (MYLICON) 80 MG chewable tablet Take 1 tablet by mouth every 6 hours as needed for Flatulence 180 tablet 0 10/08/2021 Active 50 ml sodium chloride 9 mg/m l injection (14 sources) Start: 02-21-2024 End: 02-21-2024 500 mL, IntraVENous, at 500 mL/hr, Administer over 1 Hours, Once, On Margy 4/25/24 at 1255, For 1 dose Start: 04-30-2022 sodium chlorid e flush 0.9 % injection 5-40 mL Start: 04-30-2022 End: 04-30-2022 0.9 % sodium chloride bolus Start: 04-30-2022 End: 05-02-2022 take 1 mL intravenously every hour IntraVENous, at 100 mL/hr, CONTINUOUS, Starting on 04/30/22 at 2030 Maintenance IV fluid order, if a bolus IV fluid order is present, begin this order after the bolus is complete. Start: 10-02-2021 take 1 dose intraven ously twice daily 5-40 mL, IntraVENous, EVERY 12 HOURS SCHEDULED (2 times per day), First dose on 10/02/21 at 0900 For Line Patency: Peripheral IV = 5 mL; Midline or Central Line = 10 mL/lumen. If following IV push medication, administer flush at same rate as the IV push. Flush volume is determined by type of infusion therapy being given. For non-viscous solutions use: Peripheral IV = 5 mL Midline or Central Line = 10 mL/lumen For viscous solutions (i.e. blood components, parenteral nutrition, contrast media, or after obtaining blood sample) use: Peripheral IV = 10 mL Midline or Central Line = 20 mL/lumen Start: 10-02-2021 take 5-40 mL intrave nously once as needed 5-40 mL, IntraVENous, PRN, Line Care, After every IV line use, Starting on 10/02/21 at 0606 For Line Patency: Peripheral IV = 5 mL; Midline or Central Line = 10 mL/lumen. If following IV push medication, administer flush at same rate as the IV push. Flush volume is determined by type of infusion therapy being given. For non-viscous solutions use: Peripheral IV = 5 mL Midline or Central Line = 10 mL/lumen For viscous solutions (i.e. blood components, parenteral nutrition, contrast media, or after obtaining blood sample) use: Peripheral IV = 10 mL Midline or Central Line = 20 mL/lumen Start: 10-02-2021 End: 10-05-2021 IntraVENous, at 100 mL/hr, CONTINUOUS, Starting on Sun10/03/21 at 1115 Start: 10-02-2021 End: 10-02-2021 2,619 mL (30 mL/kg 87.3 kg Adjusted weight), IntraVENous, at 5,238 mL/hr, Administer over 30 Minutes, ONCE, On Sun10/02/21 at 0003, For 1 dose In accordance with Surviving Sepsis Campaign, infuse 30 mL/kg fluid challenge as rapidly as possible without overloading patient (target 30 to 60 minutes). If calculated rate exceeds 999 mL/hr, may administer wide open or using other rapid infusion mechanism. sulfamethoxazole 800 mg / trimethoprim 160 mg oral tablet (7 sources) Dihydrofolate Reductase Inhibitor Antibacterial, Sulfonamide Antimicrobial Start: 06-23-2022 End: 06-30-2022 take 1 tablet by mouth twice daily sulfamethoxazole-trimethoprim (BACTRIM DS) 800-160 mg per tablet Indications: Cellulitis of right lower extremity Take 1 tablet by mouth twice daily for 7 days. 14 tablet 0 06/23/2022 06/30/2022 Comment on above: Take 1 tablet by mac twice daily for 7 days. torsemide (20 sources) Loop Diuretic Start: 08-27-2022 take 1 tablet by mouth once daily torsemide (SOAANZ) 40 mg tablet Take 1 tablet by mouth once daily. 90 tablet 0 08/27/2022 Suspended Start: 08-27-2022 take 1 tablet by mac once daily torsemide (SOAANZ) 40 mg tablet Take 1 tablet by mouth once daily. 90 tablet 0 08/27/2022 Active Start: 08-27-2022 End: 11-25-2022 take 1 tablet by mouth once daily torsemide (SOAANZ) 40 mg tablet Take 1 tablet by mouth once daily. 90 tablet 0 08/27/2022 11/25/2022 Suspended Start: 08-27-2022 End: 11-25-2022 take 1 tablet by mouth once daily torsemide (SOAANZ) 40 mg tablet Take 1 tablet by mouth once daily. 90 tablet 0 08/27/2022 11/25/2022 Active Comment on above: Take 1 tablet by [facility] daily. valACYclovir 500 mg oral tablet (1 source) Herpesvirus Nucleoside Analog DNA Polymerase Inhibitor, Herpes Simplex Virus Nucleoside Analog DNA Polymerase Inhibitor, Herpes Zoster Virus Nucleoside Analog DNA Polymerase Inhibitor Start: 10-10-20 End: 10-11-20 take 2000 mg by mouth twice daily 2,000 mg, Oral, 2 TIMES DAILY, First dose on Sun10/10/21 at 2100, For 2 doses vancomycin (VANCOCIN) 1250 mg in sodium chloride 0.9% 250 mL IVPB (1 source) Start: 05-03-20 End: 05-03-20 vancomycin (VANCOCIN) 1250 mg in sodium chloride 0.9% 250 mL IVPB vancomycin (VANCOCIN) 1500 mg in sodium chloride 0.9% 250 mL IVPB (1 source) Start: 05-01-20 End: 05-02-20 1,500 mg (11.8 mg/kg), IntraVENous, at 125 mL/hr, Administer over 120 Minutes, EVERY 24 HOURS, First dose on Sun05/01/22 at 1800, For 7 days vancomycin (VANCOCIN) 2000 mg in sodium chloride 0.9% 500 mL IVPB premix (1 source) Start: 04-30-20 End: 04-30-20 vancomycin (VANCOCIN) 2000 mg in sodium chloride 0.9% 500 mL IVPB premix 24 hr venlafaxine 75 mg extended release oral capsule (8 sources) Serotonin and Norepinephrine Reuptake Inhibitor Start: 03-06-20 End: 03-09-20 take 1 capsule by mouth once daily 75 mg, Oral, Daily, First dose on Sun03/06/24 at 0900, Capsule may be swallowed whole, or may be opened and its contents sprinkled on applesauce if consumed immediately without chewing. Do not crush or chew., Indications: Major Depressive Disorder Start: 02-22-2024 End: 02-28-2024 take 1 capsule by mouth once daily 75 mg, Oral, Daily, First dose on Sun02/22/24 at 0900, Capsule may be swallowed whole, or may be opened and its contents sprinkled on applesauce if consumed immediately without chewing. Do not crush or chew., Indications: Major Depressive Disorder vitamin b12 1 mg oral tablet (8 sources) Vitamin B12 Start: 02-26-2024 End: 02-28-2025 take 1000 ug by mouth once daily 1,000 mcg, Oral, Daily, First dose on Sun03/06/24 at 0900 WALKER ROLLATOR SEAT WITH 6 WHEELS - RED (20 sources) Start: 01-07-2021 End: 10-28-2022 WALKER ROLLATOR SEAT WITH 6 WHEELS - RED Indications: Chronic heart failure, unspecified heart failure type (HCC) Walker rollator with seat 1 Each 0 01/07/2021 10/28/2022 Discontinued Start: 01-07-2021 WALKER ROLLATO R SEAT WITH 6 WHEELS - RED Indications: Chronic heart failure, unspecified heart failure type (HCC) Walker rollator with seat 1 Each 0 01/07/2021 Suspended Start: 01-07-2021 WALKER ROLLATO R SEAT WITH 6 WHEELS - RED Indications: Chronic heart failure, unspecified heart failure type (HCC) Walker rollator with seat 1 Each 0 01/07/2021 Active Comment on above: Walker rollator with seat zinc oxide 0.2 mg/mg topical ointment (20 sources) Start: 10-26-2022 End: 11-25-2022 zinc oxide 20 % ointment Apply to affected area as needed. 425 g 0 10/26/2022 Active Comment on above: Apply to affected ar ea as needed. (14 sources) Start: 02-22-2024 End: 02-28-2024 1,000 mg, IntraVENous, at 100 mL/hr, Administer over 30 Minutes, Every 24 hours, First dose on Sun02/22/24 at 0900, Mini-Bag Plus bag, Suspected Indication (Select all that apply): Bloodstream Infection Start: 02-22-2024 End: 02-28-2024 inject 12 [IU] by subcutaneous injection once daily [Order 1 Start] Name: Insulin Lispro (Humalog) injection 0-12 Units Signed Summary: 0-12 Units, SubCUTAneous, 3 times daily with meals, First dose on Sun02/22/24 at 0800, Medium Dose Correction Algorithm Glucose: Dose: LESS than 139 No Insulin 140-199 2 Unit 200-249 4 Units 250-299 6 Units 300-349 8 Units 350-400 10 Units Above 400 12 Units [Order 1 End] [Order 2 Start] Name: Insulin Lispro (Humalog) injection 0-12 Units Signed Summary: 0-12 Units, SubCUTAneous, Nightly, First dose on Sun02/21/24 at 2145, If continuous tube feedings/TPN/NPO, give correction dose based on result, no reduction in dose. If eating or bolus tube feeding: Medium Dose Correction Algorithm Glucose: Dose: LESS than 139 No Insulin 140-199 2 Unit 200-249 4 Units 250-299 6 Units 300-349 8 Units 350-400 10 Units Above 400 12 Units [Order 2 End] Start: 02-22-2024 End: 02-28-2024 take 12.5 mg by mouth every six hours as needed for nausea and vomiting [Order 1 Start] Name: promethazine (Phenergan) tablet 12.5 mg Signed Summary: 12.5 mg, Oral, Every 6 hours PRN, nausea, vomiting, Starting on Sun02/22/24 at 0338 [Order 1 End] [Order 2 Start] Name: promethazine (Phenergan) injection 12.5 mg Signed Summary: 12.5 mg, IntraMUSCular, Every 6 hours PRN, nausea, vomiting, Starting on Sun02/22/24 at 0338, Only to be given as IM injection. [Order 2 End] [Order 3 Start] Name: promethazine (Phenergan) suppository 12.5 mg Signed Summary: 12.5 mg, Rectal, Every 6 hours PRN, nausea, vomiting, Starting on Sun02/22/24 at 0338 [Order 3 End] Start: 02-21-2024 End: 02-28-2024 take 650 mg by mouth every six hours as needed for pain and fever [Order 1 Start] Name: acetaminophen (Tylenol) tablet 650 mg Signed Summary: 650 mg, Oral, Every 6 hours PRN, mild pain (1-3), fever, For temp greater than 100.4 F (38 C), Starting on Sun02/21/24 at 2140, Maximum dose of acetaminophen is 4000 mg from all sources in 24 hours. [Order 1 End] [Order 2 Start] Name: acetaminophen (Tylenol) suppository 650 mg Signed Summary: 650 mg, Rectal, Every 6 hours PRN, mild pain (1-3), fever, For temp greater than 100.4 F (38 C), Starting on 02/20/24 at 2140, Administer if oral route cannot be used. Maximum dose of acetaminophen is 4000 mg from all sources in 24 hours. [Order 2 End] Start: 02-21-2024 End: 02-21-2024 2,000 mg, IntraVENous, at 10 0 mL/hr, Administer over 30 Minutes, Once, On [place] 02/21/24 at 1225, For 1 dose, Mini-Bag Plus bag, Suspected Indication (Select all that apply): Head and Neck Infection Start: 10-03-2021 End: 10-03-2021 1,750 mg (12.9 mg/kg), Intra VENous, at 250 mL/hr, Administer over 120 Minutes, EVERY 24 HOURS, First dose on Sun10/03/21 at 0200 Start: 10-02-2021 [Order 1 Start ] Name: acetaminophen (TYLENOL) tablet 650 mg Signed Summary: 650 mg, Oral, EVERY 6 HOURS PRN, Pain Mild (1-3), Fever, For temp greater than 100.4 F (38 C), Starting on 10/02/21 at 0606 Maximum dose of acetaminophen is 4000 mg from all sources in 24 hours. [Order 1 End] [Order 2 Start] Name: acetaminophen (TYLENOL) suppository 650 mg Signed Summary: 650 mg, Rectal, EVERY 6 HOURS PRN, Pain Mild (1-3), Fever, For temp greater than 100.4 F (38 C), Starting on 10/02/21 at 0606 Administer if oral route cannot be used. [Order 2 End] Start: 10-02-2021 End: 10-02-2021 2,000 mg (14.7 mg/kg), Intra VENous, at 250 mL/hr, Administer over 120 Minutes, ONCE, On [place] 10/02/21 at 0100, For 1 dose Start: 10-02-2021 End: 10-02-2021 2,000 mg, IntraVENous, at 10 0 mL/hr, Administer over 30 Minutes, ONCE, On [place] 10/02/21 at 0100, For 1 dose (1 source) Start: 10-03-2021 End: 10-06-2021 1.65 mg (1.5 mL), IntraVENous, IMG ONCE PRN, Other, Suboptimal Echo Image, Starting on Sun10/03/21 at 1039, For 72 hours Administer up to 1.65 mg via slow IVP for suboptimal echocardiogram enhancement. May administer as concentrated dose or diluted in 8.5 mL of 0.9% sodium chloride for a total volume of 10 mL. May administer as divided doses to reach optimal image enhancement. (2 sources) Start: 02-21-2024 End: 02-21-2024 take 75 mL intravenously once as needed 75 mL, IntraVENous, IMG once PRN, contrast, Starting on [place] 02/21/24 at 1340, For 1 dose Problems Active Problems Problem Classification Problem Date Documented Da te Episodic/Chronic Allergic reactions (2 sources) Irritant contact dermatitis due to contact with urine and/or feces; Translations: [Irritant contact dermatitis due to incontinence of both feces and urine] 02-22-2024 Episodic Chronic kidney disease (20 sources) Chronic kidney disease stage 3B ; Translations: [Stage 3b chronic kidney disease] Onset: 11-10-2021 11-10-2021 Chronic Chronic kidney disease (2 sources) Chronic kidney disease; Translations: [Stage 3b chronic kidney disease (HCC)] Onset: 11-10-2021 Chronic obstructive pulmonary disease and bronchiectasis (20 sources) Chronic obstructive lung disease; Translations: [Chronic obstructive pulmonary disease, unspecified] Onset: 06-21-2021 07-03-2021 Chronic Chronic ulcer of skin (20 sources) Pressure ulcer of unspecified site, unspecified stage; Translations: [Pressure ulcer, unspecified site] Onset: 10-16-2022 10-16-2022 Chronic Congestive heart failure; nonhypertensive (20 sources) Acute congestive heart failure; Translations: [Heart failure, unspecified] Onset: 10-17-2020 Chronic Coronary atherosclerosis and other heart disease (20 sources) Coronary arteriosclerosis; Translations: [Atherosclerotic heart disease of [place] coronary artery without angina pectoris] Onset: 05-01-2011 07-03-2021 Chronic Diabetes mellitus with complications (20 sources) Type 2 diabetes mellitus; Translations: [Type 2 diabetes mellitus with diabetic polyneuropathy] Onset: 10-17-2020 07-18-2021 Chronic Diabetes mellitus without complication (2 sources) Type 2 diabetes mellitus without complications; Translations: [Type 2 diabetes mellitus without complications] Onset: 05-16-2025 Chronic Disorders of lipid metabolism (20 sources) Mixed hyperlipidemia; Translations: [Mixed hyperlipidemia] Onset: 11-28-2020 11-28-2020 Chronic Essential hypertension (20 sources) Essential hypertension; Translations: [Essential (primary) hypertension] Onset: 10-12-2021 11-10-2021 Chronic Fever of unknown origin (4 sources) Fever; Translations: [Fever, unspecified] Onset: 02-21-2024 02-21-2024 Episodic Mood disorders (20 sources) Bipolar disorder; Translations: [Bipolar disorder, unspecified] Onset: 03-20-2018 07-03-2021 Chronic Other aftercare (2 sources) Patient encounter status; Translations: [Other [place] [facility] therapy] Episodic Other connective tissue disease (1 source) Swelling of lower limb; Translations: [Other specified soft tissue disorders] Episodic Other gastrointestinal disorders (1 source) Chronic constipation; Translations: [Other constipation] Episodic Other inflammatory condition of skin (20 sources) Bullous pemphigoid; Translations: [Bullous pemphigoid] Onset: 11-17-2022 11-17-2022 Chronic Other inflammatory condition of skin (1 source) Bullous pemphigoid; Translations: [Bullous pemphigoid] Onset: 11-17-2022 Chronic Other nervous system disorders (6 sources) Neuropathy; Translations: [Polyneuropathy, unspecified] Onset: 10-12-2021 10-12-2021 Chronic Other nervous system disorders (4 sources) Disorder of brain; Translations: [Encephalopathy, unspecified] Onset: 03-05-2024 03-05-2024 Chronic Other nutritional; endocrine; and metabolic disorders (20 sources) Severe obesity; Translations: [Morbid (severe) obesity due to excess calories] Onset: 11-30-2020 11-10-2021 Chronic Other nutritional; endocrine; and metabolic disorders (1 source) Body mass index 40+ - severely obese; Translations: [Morbid (severe) obesity due to excess calories] Chronic Other nutritional; endocrine; and metabolic disorders (3 sources) Morbid (severe) obesity due to excess calories; Translations: [Morbid obesity with BMI of 45.0-49.9, adult (HCC)] Onset: 11-10-2021 Chronic Other nutritional; endocrine; and metabolic disorders (3 sources) Body mass index (BMI) 45.0-49.9, adult; Translations: [Morbid obesity with BMI of 45.0-49.9, adult ([facility])] Onset: 11-10-2021 Chronic Other nutritional; endocrine; and metabolic disorders (13 sources) Hypomagnesemia; Translations: [Hypomagnesemia] Onset: 01-12-2023 01-12-2023 Chronic Other nutritional; endocrine; and metabolic disorders (7 sources) Morbid obesity; Translations: [Morbid (severe) obesity due to excess calories] Onset: 02-14-2023 02-15-2023 Chronic Other screening for suspected conditions (not mental disorders or infectious disease) (1 source) Raised TSH level; Translations: [Other specified abnormal findings of blood chemistry] Episodic Other skin disorders (1 source) Eruption; Translations: [Rash and other nonspecific skin eruption] Episodic Other upper respiratory infections (10 sources) Sphenoidal sinusitis; Translations: [Chronic sphenoidal sinusitis] Onset: 02-21-2024 02-21-2024 Chronic Residual codes; unclassified (20 sources) Obstructive sleep apnea syndrome; Translations: [Obstructive sleep apnea (adult) (pediatric)] Onset: 05-31-2012 11-28-2020 Chronic Residual codes; unclassified (1 source) Obstructive sleep apnea (adult) (pediatric); Translations: [DIYA (obstructive sleep apnea)] Onset: 11-28-2020 Chronic Residual codes; unclassified (1 source) Altered mental status; Translations: [Altered mental status, unspecified] Episodic Residual codes; unclassified (3 sources) Bilateral lower limb edema; Translations: [Localized edema] Episodic Residual codes; unclassified (1 source) Hallucinations Onset: 06-29-2023 Episodic Residual codes; unclassified (2 sources) Delirium; Translations: [Disorientation, unspecified] 02-21-2024 Episodic Residual codes; unclassified (4 sources) Transient alteration of awareness; Translations: [Transient alteration of awareness] Onset: 03-05-2024 03-06-2024 Episodic Residual codes; unclassified (2 sources) Edema; Translations: [Edema, unspecified] 03-06-2024 Episodic Residual codes; unclassified (2 sources) Edema of right upper arm; Translations: [Localized edema] 03-06-2024 Episodic Residual codes; unclassified (2 sources) Edema, unspecified; Translations: [Edema, unspecified] Onset: 03-05-2024 Episodic Residual codes; unclassified (2 sources) Localized edema; Translations: [Localized edema] Onset: 02-21-2024 Episodic Respiratory failure; insufficiency; arrest (adult) (20 sources) Chronic hypoxemic respiratory failure; Translations: [Chronic respiratory failure with hypoxia] Onset: 06-21-2021 06-21-2021 Chronic Septicemia (except in labor) (1 source) Infectious agent in bloodstream; Translations: [Sepsis, unspecified organism] Episodic Spondylosis; intervertebral disc disorders; other back problems (20 sources) Degeneration of lumbar intervertebral disc; Translations: [Other intervertebral disc degeneration, lumbar region] Onset: 03-25-2022 Chronic Unclassified (1 source) History of COVID-19; Translations: [History of COVID-19] Onset: 03-25-2022 Unclassified (1 source) Irritant contact dermatitis due to fecal, urinary or dual incontinence; Translations: [Irritant contact dermatitis due to fecal, urinary or dual incontinence] Onset: 02-21-2024 Urinary tract infections (20 sources) Urinary tract infectious disease; Translations: [Urinary tract infection, site not specified] Onset: 07-03-2021 Resolved: 11-01-2021 Episodic Past or Other Problems Problem Classification Problem Date Documented Da te Episodic/Chronic Acute and unspecified renal failure (6 sources) Acute renal failure syndrome; Translations: [Acute kidney failure, unspecified] Onset: 10-12-2021 Episodic Administrative/social admission (20 sources) Finding of activity of daily living; Translations: [Need for assistance with personal care] Onset: 03-25-2022 Episodic Bacterial infection; unspecified site (5 sources) Bacteremia; Translations: [Bacteremia] Onset: 10-12-2021 10-12-2021 Episodic Genitourinary symptoms and ill-defined conditions (20 sources) Microalbuminuria; Translations: [Proteinuria, unspecified] Onset: 11-10-2021 11-10-2021 Episodic Malaise and fatigue (20 sources) Asthenia; Translations: [Other malaise] Onset: 06-21-2021 06-21-2021 Episodic Other acquired deformities (20 sources) Lumbar spondylolisthesis; Translations: [Spondylolisthesis, lumbar region] Onset: 03-25-2022 Episodic Other acquired deformities (1 source) Spondylolisthesis, lumbar region; Translations: [Spondylolisthesis of lumbar region] Onset: 03-25-2022 Episodic Other aftercare (2 sources) longterm (current) use of insulin; Translations: [Type 2 diabetes mellitus with diabetic polyneuropathy, with long-term current use of insulin (HCC)] Onset: 07-18-2021 Episodic Other aftercare (1 source) Encounter for follow-up examination after completed treatment for conditions other than malignant neoplasm; Translations: [Hospital discharge follow-up] Onset: 12-19-2021 Episodic Other aftercare (1 source) Other [place] [facility] therapy; Translations: [Other [place] [facility] drug therapy] Onset: 10-31-2024 Episodic Other connective tissue disease (20 sources) Paraparesis; Translations: [Other symptoms and signs involving the musculoskeletal system] Onset: 03-25-2022 Episodic Other connective tissue disease (20 sources) Triggering of digit; Translations: [Trigger finger, right middle finger] Onset: 03-25-2022 Episodic Other connective tissue disease (1 source) Other symptoms and signs involving the musculoskeletal system; Translations: [Weakness of both legs] Onset: 03-25-2022 Episodic Other connective tissue disease (1 source) Trigger finger, right middle finger; Translations: [Trigger middle finger of right hand] Onset: 03-25-2022 Episodic Other connective tissue disease (1 source) Other specified soft tissue disorders; Translations: [Leg swelling] Onset: 2022 Episodic Other gastrointestinal disorders (20 sources) Slow transit constipation; Translations: [Slow transit constipation] Onset: 03-25-2022 Episodic Other gastrointestinal disorders (1 source) Slow transit constipation; Translations: [Slow transit constipation] Onset: 03-25-2022 Episodic Other infections; including parasitic (20 sources) Personal history of other infectious and parasitic diseases; Translations: [History of COVID-19] Onset: 03-25-2022 Episodic Other lower respiratory disease (20 sources) Restrictive lung disease; Translations: [Other disorders of lung] Onset: 03-25-2022 Episodic Other lower respiratory disease (1 source) Other disorders of lung; Translations: [Restrictive lung disease] Onset: 03-25-2022 Episodic Other skin disorders (20 sources) Bullous dermatosis; Translations: [Rash and other nonspecific skin eruption] Onset: 08-26-2022 08-26-2022 Episodic Other skin disorders (2 sources) Rash and other nonspecific skin eruption; Translations: [Bullous rash] Onset: 2022 Episodic Pneumonia (except that caused by tuberculosis or sexually transmitted disease) (1 source) Pneumonia, unspecified organism; Translations: [Pneumonia due to infectious organism, unspecified laterality, unspecified part of lung] Onset: 08-22-2022 Episodic Residual codes; unclassified (1 source) Hallucinations, unspecified; Translations: [Hallucinations] Onset: 02-11-2023 Episodic Residual codes; unclassified (3 sources) Disorientation, unspecified; Translations: [Disorientation, unspecified] Onset: 02-21-2024 Episodic Skin and subcutaneous tissue infections (8 sources) Cellulitis of right lower limb; Translations: [Cellulitis of right lower limb] Onset: 2022 Episodic Unclassified (1 source) Irritant contact dermatitis due to fecal, urinary or dual incontinence; Translations: [Irritant contact dermatitis due to fecal, urinary or dual incontinence] Onset: 02-21-2024 Results Test Name Value Interpretation Reference Range Facility Basic Metabolic Profile (BMP )on 07-22-2025 BUN/CRE 29.6 RATIO High 10- [facility] Comment on above: Order Comment: 114.2 Performed By: #### L 100.0500, L500.2500 #### [facility] [address] [place], [address] Calcium [Mass/Vol] 9.2 mg/dL Normal 7.6-11.0 [facility] Comment on above: Order Comment: 114.2 Performed By: #### L 100.0500, L500.2500 #### [facility] [address] [place], [address] Chloride [Moles/Vol] 98 mmol/L Normal 98-108 [facility] Comment on above: Order Comment: 114.2 Performed By: #### L 100.0500, L500.2500 #### [facility] [address] [place], [address] CO2 [Moles/Vol] 28.7 mmol/L Normal 21.0-32.0 [facility] Comment on above: Order Comment: 114.2 Performed By: #### L 100.0500, L500.2500 #### [facility] [address] [place], [address] Creatinine [Mass/Vol] 1.26 mg/dL High 0.70-1.20 [facility] Comment on above: Order Comment: 114.2 Performed By: #### L 100.0500, L500.2500 #### [facility] [address] [place], [address] GAP 13 Normal 5-15 [facility] Comment on above: Order Comment: 114.2 Performed By: #### L 100.0500, L500.2500 #### [facility] [address] [place], [address] GFR/1.73 sq M.predicted among non-blacks MDRD (S/P/Bld) [Vol rate/Area] 47 mL/min/{1.73_m2} Low >60 [facility] Comment on above: Order Comment: 114.2 Result Comment: mL/m in/1.73m2 CKD-EPI Creatinine Equation (2020) Performed By: #### L 100.0500, L500.2500 #### [facility] [address] [place], [address] Glucose [Mass/Vol] 197 mg/dL High 70-99 [facility] Comment on above: Order Comment: 114.2 Performed By: #### L 100.0500, L500.2500 #### [facility] [address] [place], [address] Potassium [Moles/Vol] 4.1 mmol/L Normal 3.3-5.1 [facility] Comment on above: Order Comment: 114.2 Performed By: #### L 100.0500, L500.2500 #### [facility] [address] [place], [address] Sodium [Moles/Vol] 139 mmol/L Normal 133-145 [facility] Comment on above: Order Comment: 114.2 Performed By: #### L 100.0500, L500.2500 #### [facility] [address] [place], [address] Urea nitrogen [Mass/Vol] 37 mg/dL High 4-19 [facility] Comment on above: Order Comment: 114.2 Performed By: #### L 100.0500, L500.2500 #### [facility] [address] [place], [address] CBC-Complete Blood Cnt No Di ffon 07-22-2025 Erythrocyte distribution width (RBC) [Ratio] 13.2 % Normal 11.6-14.6 [facility] Comment on above: Order Comment: 114.2 Performed By: #### L 100.0500, L500.2500 #### [facility] [address] [place], [address] Hematocrit (Bld) [Volume fraction] 42.0 % Normal 37-47 [facility] Comment on above: Order Comment: 114.2 Performed By: #### L 100.0500, L500.2500 #### [facility] [address] [place], [address] Hemoglobin (Bld) [Mass/Vol] 13.5 g/dL Normal 12.0-15.0 [facility] Comment on above: Order Comment: 114.2 Performed By: #### L 100.0500, L500.2500 #### [facility] [address] [place], [address] MCH (RBC) [Entitic mass] 32.5 pg High 27.0-32.0 [facility] Comment on above: Order Comment: 114.2 Performed By: #### L 100.0500, L500.2500 #### [facility] [address] [place], [address] MCHC (RBC) [Mass/Vol] 32.1 g/dL Normal 32-36 [facility] Comment on above: Order Comment: 114.2 Performed By: #### L 100.0500, L500.2500 #### [facility] [address] [place], [address] MCV (RBC) [Entitic vol] 101.2 fL High 81-99 [facility] Comment on above: Order Comment: 114.2 Performed By: #### L 100.0500, L500.2500 #### [facility] [address] [place], [address] Platelet mean volume (Bld) [Entitic vol] 9.0 fL Normal 6.2-12.0 [facility] Comment on above: Order Comment: 114.2 Performed By: #### L 100.0500, L500.2500 #### [facility] [address] [place], [address] Platelets (Bld) [#/Vol] 262 10*3/uL Normal 150-450 [facility] Comment on above: Order Comment: 114.2 Performed By: #### L 100.0500, L500.2500 #### [facility] [address] [place], [address] RBC (Bld) [#/Vol] 4.15 10*6/uL Low 4.2-5.4 [facility] Comment on above: Order Comment: 114.2 Performed By: #### L 100.0500, L500.2500 #### [facility] [address] [place], [address] RDW SD 49.1 fl High 35.1-43.9 [facility] Comment on above: Order Comment: 114.2 Performed By: #### L 100.0500, L500.2500 #### [facility] [address] [place], [address] WBC (Bld) [#/Vol] 9.9 10*3/uL Normal 4.4-11.0 [facility] Comment on above: Order Comment: 114.2 Performed By: #### L 100.0500, L500.2500 #### [facility] [address] [place], [address] Basic Metabolic Profile (BMP )on 07-06-2025 BUN/CRE 36.0 RATIO High 10-20 [facility] Comment on above: Order Comment: 114.2 Performed By: #### L 100.0500, L500.2500 #### [facility] [address] [place], [address] Calcium [Mass/Vol] 9.0 mg/dL Normal 7.6-11.0 [facility] Comment on above: Order Comment: 114.2 Performed By: #### L 100.0500, L500.2500 #### [facility] [address] [place], [address] Chloride [Moles/Vol] 95 mmol/L Low 98-108 [facility] Comment on above: Order Comment: 114.2 Performed By: #### L 100.0500, L500.2500 #### [facility] [address] [place], [address] CO2 [Moles/Vol] 27.2 mmol/L Normal 21.0-32.0 [facility] [facility] Comment on above: Order Comment: 114.2 Performed By: #### L 100.0500, L500.2500 #### [facility] [address] [place], [address] Creatinine [Mass/Vol] 1.25 mg/dL High 0.70-1.20 [facility] Comment on above: Order Comment: 114.2 Performed By: #### L 100.0500, L500.2500 #### [facility] [address] [place], [address] GAP 15 Normal 5-15 [facility] Comment on above: Order Comment: 114.2 Performed By: #### L 100.0500, L500.2500 #### [facility] [address] [place], [address] GFR/1.73 sq M.predicted among non-blacks MDRD (S/P/Bld) [Vol rate/Area] 47 mL/min/{1.73_m2} Low >60 [facility] Comment on above: Order Comment: 114.2 Result Comment: mL/m in/1.73m2 CKD-EPI Creatinine Equation (2020) Performed By: #### L 100.0500, L500.2500 #### [facility] [address] [place], [address] Glucose [Mass/Vol] 248 mg/dL High 70-99 [facility] Comment on above: Order Comment: 114.2 Performed By: #### L 100.0500, L500.2500 #### [facility] [address] [place], [address] Potassium [Moles/Vol] 4.2 mmol/L Normal 3.3-5.1 [facility] Comment on above: Order Comment: 114.2 Performed By: #### L 100.0500, L500.2500 #### [facility] [address] [place], [address] Sodium [Moles/Vol] 138 mmol/L Normal 133-145 [facility] Comment on above: Order Comment: 114.2 Performed By: #### L 100.0500, L500.2500 #### [facility] [address] [place], [address] Urea nitrogen [Mass/Vol] 45 mg/dL High 4-19 [facility] Comment on above: Order Comment: 114.2 Performed By: #### L 100.0500, L500.2500 #### [facility] [address], [address] CBC-Complete Blood Cnt No Di ffon 07-06-2025 Erythrocyte distribution width (RBC) [Ratio] 12.6 % Normal 11.6-14.6 [facility] Comment on above: Order Comment: 114.2 Performed By: #### L 100.0500, L500.2500 #### [facility] [address] [place], [address] Hematocrit (Bld) [Volume fraction] 33.7 % Low 37-47 [facility] Comment on above: Order Comment: 114.2 Performed By: #### L 100.0500, L500.2500 #### [facility] [address] [place], [address] Hemoglobin (Bld) [Mass/Vol] 10.8 g/dL Low 12.0-15.0 [facility] Comment on above: Order Comment: 114.2 Performed By: #### L 100.0500, L500.2500 #### [facility] [address] [place], [address] MCH (RBC) [Entitic mass] 32.1 pg High 27.0-32.0 [facility] Comment on above: Order Comment: 114.2 Performed By: #### L 100.0500, L500.2500 #### [facility] [address] [place], [address] MCHC (RBC) [Mass/Vol] 32.0 g/dL Normal 32-36 [facility] Comment on above: Order Comment: 114.2 Performed By: #### L 100.0500, L500.2500 #### [facility] [address] [place], [address] MCV (RBC) [Entitic vol] 100.3 fL High 81-99 [facility] Comment on above: Order Comment: 114.2 Performed By: #### L 100.0500, L500.2500 #### [facility] [address] [place], [address] Platelet mean volume (Bld) [Entitic vol] 9.3 fL Normal 6.2-12.0 [facility] Comment on above: Order Comment: 114.2 Performed By: #### L 100.0500, L500.2500 #### [facility] [address] [place], [address] Platelets (Bld) [#/Vol] 239 10*3/uL Normal 150-450 [facility] Comment on above: Order Comment: 114.2 Performed By: #### L 100.0500, L500.2500 #### [facility] [address] [place], [address] RBC (Bld) [#/Vol] 3.36 10*6/uL Low 4.2-5.4 [facility] Comment on above: Order Comment: 114.2 Performed By: #### L 100.0500, L500.2500 #### [facility] [address] [place], [address] RDW SD 46.5 fl High 35.1-43.9 [facility] Comment on above: Order Comment: 114.2 Performed By: #### L 100.0500, L500.2500 #### [facility] [address] [place], [address] WBC (Bld) [#/Vol] 9.3 10*3/uL Normal 4.4-11.0 [facility] Comment on above: Order Comment: 114.2 Performed By: #### L 100.0500, L500.2500 #### [facility] [address] [place], [address] Hemoglobin A1con 07-06-2025 HbA1c (Bld) [Mass fraction] 8.5 % High <=5.6 [facility] Comment on above: Order Comment: 114.2 Result Comment: Norm al < 5.7 % Prediabetic 5.7 - 6.4 % Diabetic >or= 6.5 % Please note range changes. Performed By: #### L 100.0500, L500.2500 #### [facility] [address] [place], [address] Urine Cultureon 05-12-2025 [facility] Urine Culture Copy of report sent to Infection Control Printer [id number] 05/11/25 0101 ASNIPES. Urine Culture Urine Culture Urine Culture Urine Culture Providencia stuartii [place] Count 50,000-80,000 Escherichia coli Escherichia coli VREFAC Beta Lactamase-Reportable Negative Vancomycin Resist. E. faecilis SSCI [place] Count 11,000-25,000 PMIR [place] Count 11,000-25,000 Staphylococcus sciuri Ampicillin Islt ASHU Ampicillin+Sulbac Islt ASHU 4 S Proteus mirabilis cefTRIAXone Islt ASHU <=0.25 Ciprofloxacin Islt ASHU >=4 R Gentamicin Islt ASHU levoFLOXacin Islt ASHU >=8 R Meropenem Islt ASHU <=0.25 S Nitrofurantoin Islt ASHU 128 R Pip+Tazo Islt ASHU 8 S TMP SMX Islt ASHU 40 S Escherichia coli: REACTION Ampicillin Islt ASHU 8 S Ampicillin+Sulbac Islt ASHU 4 S Cefepime Islt ASHU <=0.12 S cefTRIAXone Islt ASHU <=0.25 S Ciprofloxacin Islt ASHU >=4 R B-Lactamase Extended Susc Islt Gentamicin Islt ASHU <=1 S levoFLOXacin Islt ASHU >=8 R Meropenem Islt ASHU <=0.25 S Nitrofurantoin Islt ASHU <=16 S Pip+Tazo Islt ASHU <=4 S TMP SMX Islt ASHU <=20 S Vancomycin Resist. E. faecilis: REACTION Ampicillin Islt ASHU <=2 S DAPTOmycin Islt ASHU 4 S Ciprofloxacin Islt ASHU >=8 R Gentamicin Synergy Susc Islt SYN-R R levoFLOXacin Islt ASHU >=8 R Linezolid Islt ASHU 2 Nitrofurantoin Islt ASHU <=16 S Streptomycin High Pot Susc Islt SYN-S S Tetracycline Islt ASHU >=16 R Vancomycin Islt ASHU >=32 R Staphylococcus sciuri: REACTION cefOXitin Susc Islt POS Doxycycline Islt ASHU >=16 R Clindamycin.induced Susc Islt NEG Gentamicin Islt ASHU <=0.5 S Linezolid Islt ASHU 1 S Nitrofurantoin Islt ASHU <=16 Oxacillin Susc Islt >=4 R Tetracycline Islt ASHU >=16 R TMP SMX Islt ASHU <=10 S Vancomycin Islt ASHU 1 S Proteus mirabilis: REACTION Ampicillin Islt ASHU <=2 S Ampicillin+Sulbac Islt ASHU <=2 S Cefepime Islt ASHU <=0.12 S cefTRIAXone Islt ASHU <=0.25 S Ciprofloxacin Islt ASHU >=4 R Gentamicin Islt ASHU <=1 levoFLOXacin Islt ASHU R Meropenem Islt ASHU <=0.25 S Nitrofurantoin Islt ASHU 128 R Pip+Tazo Islt ASHU <=4 S TMP SMX Islt ASHU >=320 R Normal [facility] Comment on above: Performed By: #### L 400.0001, M100.0 #### [facility] [address] [place], [address] Urinalysis, Completeon 05-05 EPI,SQUAMOUS 5-10 SEEN Normal 5-10 [facility] Comment on above: Order Comment: SC CATHETER SPECIMEN Performed By: #### L 400.0001, M100.2200 #### [facility] [address] [place], [address] WBC 0-5 SEEN Normal 0-5 [facility] Comment on above: Order Comment: SC CATHETER SPECIMEN Performed By: #### L 400.0001, M100.2200 #### [facility] [address] [place], [address] BACTERIA 0 SEEN Normal None Seen [facility] Comment on above: Order Comment: SC CATHETER SPECIMEN Performed By: #### L 400.0001, M100.2200 #### [facility] [address] [place], [address] Mucus Ql (Urine sed) 0 SEEN Normal [facility] Comment on above: Order Comment: SC CATHETER SPECIMEN Performed By: #### L 400.0001, M100.2200 #### [facility] [address] [place], [address] RBC 0 SEEN Normal 0-5 [facility] Comment on above: Order Comment: SC CATHETER SPECIMEN Performed By: #### L 400.0001, M100.2200 #### [facility] [address] [place], [address] Basic Metabolic Profile (BMP )on 04-21-2025 BUN/CRE 25.2 RATIO High 10-20 [facility] Comment on above: Order Comment: 114.2 Performed By: #### L 100.0500, L500.2500 #### [facility] [address] [place], [address] Calcium [Mass/Vol] 8.9 mg/dL Normal 7.6-11.0 [facility] Comment on above: Order Comment: 114.2 Performed By: #### L 100.0500, L500.2500 #### [facility] [address] [place], [address] Chloride [Moles/Vol] 99 mmol/L Normal 98-108 [facility] Comment on above: Order Comment: 114.2 Performed By: #### L 100.0500, L500.2500 #### [facility] [address] [place], [address] CO2 [Moles/Vol] 30.9 mmol/L Normal 21.0-32.0 [facility] Comment on above: Order Comment: 114.2 Performed By: #### L 100.0500, L500.2500 #### [facility] [address] [place], [address] Creatinine [Mass/Vol] 1.29 mg/dL High 0.70-1.20 [facility] Comment on above: Order Comment: 114.2 Performed By: #### L 100.0500, L500.2500 #### [facility] [address] [place], [address] GAP 10 Normal 5-15 [facility] Comment on above: Order Comment: 114.2 Performed By: #### L 100.0500, L500.2500 #### [facility] [address] [place], [address] GFR/1.73 sq M.predicted among non-blacks MDRD (S/P/Bld) [Vol rate/Area] 45 mL/min/{1.73_m2} Low >60 [facility] Comment on above: Order Comment: 114.2 Result Comment: mL/m in/1.73m2 CKD-EPI Creatinine Equation (2020) Performed By: #### L 100.0500, L500.2500 #### [facility] [address] [place], [address] Glucose [Mass/Vol] 115 mg/dL High 70-99 [facility] Comment on above: Order Comment: 114.2 Performed By: #### L 100.0500, L500.2500 #### [facility] [address] [place], [address] Potassium [Moles/Vol] 3.9 mmol/L Normal 3.3-5.1 [facility] Comment on above: Order Comment: 114.2 Performed By: #### L 100.0500, L500.2500 #### [facility] [address] [place], [address] Sodium [Moles/Vol] 139 mmol/L Normal 133-145 [facility] Comment on above: Order Comment: 114.2 Performed By: #### L 100.0500, L500.2500 #### [facility] [address] [place], [address] Urea nitrogen [Mass/Vol] 33 mg/dL High 4-19 [facility] Comment on above: Order Comment: 114.2 Performed By: #### L 100.0500, L500.2500 #### [facility] [address] [place], [address] CBC-Complete Blood Cnt No Di ffon 04-21-2025 Erythrocyte distribution width (RBC) [Ratio] 12.8 % Normal 11.6-14.6 [facility] Comment on above: Order Comment: 114.2 Performed By: #### L 100.0500, L500.2500 #### [facility] [address] [place], [address] Hematocrit (Bld) [Volume fraction] 32.4 % Low 37-47 [facility] Comment on above: Order Comment: 114.2 Performed By: #### L 100.0500, L500.2500 #### [facility] [address] [place], [address] Hemoglobin (Bld) [Mass/Vol] 10.5 g/dL Low 12.0-15.0 [facility] Comment on above: Order Comment: 114.2 Performed By: #### L 100.0500, L500.2500 #### [facility] [address] [place], [address] MCH (RBC) [Entitic mass] 32.1 pg High 27.0-32.0 [facility] Comment on above: Order Comment: 114.2 Performed By: #### L 100.0500, L500.2500 #### [facility] [address] [place], [address] MCHC (RBC) [Mass/Vol] 32.4 g/dL Normal 32-36 [facility] Comment on above: Order Comment: 114.2 Performed By: #### L 100.0500, L500.2500 #### [facility] [address] [place], [address] MCV (RBC) [Entitic vol] 99.1 fL High 81-99 [facility] Comment on above: Order Comment: 114.2 Performed By: #### L 100.0500, L500.2500 #### [facility] [address] [place], [address] Platelet mean volume (Bld) [Entitic vol] 8.9 fL Normal 6.2-12.0 [facility] Comment on above: Order Comment: 114.2 Performed By: #### L 100.0500, L500.2500 #### [facility] [address] [place], [address] Platelets (Bld) [#/Vol] 251 10*3/uL Normal 150-450 [facility] Comment on above: Order Comment: 114.2 Performed By: #### L 100.0500, L500.2500 #### [facility] [address] [place], [address] RBC (Bld) [#/Vol] 3.27 10*6/uL Low 4.2-5.4 [facility] Comment on above: Order Comment: 114.2 Performed By: #### L 100.0500, L500.2500 #### [facility] [address] [place], [address] RDW SD 46.6 fl High 35.1-43.9 [facility] Comment on above: Order Comment: 114.2 Performed By: #### L 100.0500, L500.2500 #### [facility] [address] [place], [address] WBC (Bld) [#/Vol] 7.6 10*3/uL Normal 4.4-11.0 [facility] Comment on above: Order Comment: 114.2 Performed By: #### L 100.0500, L500.2500 #### [facility] [address] [place], [address] CBC-Complete Blood Cnt No Di ffon 04-02-2025 Erythrocyte distribution width (RBC) [Ratio] 13.2 % Normal 11.6-14.6 [facility] Comment on above: Order Comment: 114.2 Performed By: #### L 100.0500, L500.2500 #### [facility] [address] [place], [address] Hematocrit (Bld) [Volume fraction] 33.9 % Low 37-47 [facility] Comment on above: Order Comment: 114.2 Performed By: #### L 100.0500, L500.2500 #### [facility] [address] [place], [address] Hemoglobin (Bld) [Mass/Vol] 10.6 g/dL Low 12.0-15.0 [facility] Comment on above: Order Comment: 114.2 Performed By: #### L 100.0500, L500.2500 #### [facility] [address] [place], [address] MCH (RBC) [Entitic mass] 31.8 pg Normal 27.0-32.0 [facility] Comment on above: Order Comment: 114.2 Performed By: #### L 100.0500, L500.2500 #### [facility] [address] [place], [address] MCHC (RBC) [Mass/Vol] 31.3 g/dL Low 32-36 [facility] Comment on above: Order Comment: 114.2 Performed By: #### L 100.0500, L500.2500 #### [facility] [address] [place], [address] MCV (RBC) [Entitic vol] 101.8 fL High 81-99 [facility] Comment on above: Order Comment: 114.2 Performed By: #### L 100.0500, L500.2500 #### [facility] [address] [place], [address] Platelet mean volume (Bld) [Entitic vol] 8.7 fL Normal 6.2-12.0 [facility] Comment on above: Order Comment: 114.2 Performed By: #### L 100.0500, L500.2500 #### [facility] [address] [place], [address] Platelets (Bld) [#/Vol] 223 10*3/uL Normal 150-450 [facility] Comment on above: Order Comment: 114.2 Performed By: #### L 100.0500, L500.2500 #### [facility] [address] [place], [address] RBC (Bld) [#/Vol] 3.33 10*6/uL Low 4.2-5.4 [facility] Comment on above: Order Comment: 114.2 Performed By: #### L 100.0500, L500.2500 #### [facility] [address] [place], [address] RDW SD 49.4 fl High 35.1-43.9 [facility] Comment on above: Order Comment: 114.2 Performed By: #### L 100.0500, L500.2500 #### [facility] [address] [place], [address] WBC (Bld) [#/Vol] 7.4 10*3/uL Normal 4.4-11.0 [facility] Comment on above: Order Comment: 114.2 Performed By: #### L 100.0500, L500.2500 #### [facility] [address] [place], [address] Comprehensive Metabolic Prof ilon 04-02-2025 Albumin [Mass/Vol] 2.7 g/dL Low 3.4-4.8 [facility] Comment on above: Order Comment: 114.2 Performed By: #### L 100.0500, L500.2500 #### [facility] [address] [place], [address] Albumin/Globulin [Mass ratio] 1.1 {ratio} Normal 0.9-2.4 [facility] Comment on above: Order Comment: 114.2 Performed By: #### L 100.0500, L500.2500 #### [facility] [address] [place], [address] ALK PHOS 75 U/L Normal 35-104 [facility] Comment on above: Order Comment: 114.2 Performed By: #### L 100.0500, L500.2500 #### [facility] [address] [place], [address] ALT [Catalytic activity/Vol] 13 U/L Normal <=34 [facility] Comment on above: Order Comment: 114.2 Performed By: #### L 100.0500, L500.2500 #### [facility] [address] [place], [address] AST [Catalytic activity/Vol] 15 U/L Normal <=31 [facility] Comment on above: Order Comment: 114.2 Performed By: #### L 100.0500, L500.2500 #### [facility] [address] [place], [address] Bilirubin [Mass/Vol] 0.22 mg/dL Normal 0.00-1.30 [facility] Comment on above: Order Comment: 114.2 Performed By: #### L 100.0500, L500.2500 #### [facility] [address] [place], [address] BUN/CRE 27.4 RATIO High 10-20 [facility] Comment on above: Order Comment: 114.2 Performed By: #### L 100.0500, L500.2500 #### [facility] [address] [place], [address] Calcium [Mass/Vol] 8.4 mg/dL Normal 7.6-11.0 [facility] Comment on above: Order Comment: 114.2 Performed By: #### L 100.0500, L500.2500 #### [facility] [address] [place], [address] Chloride [Moles/Vol] 104 mmol/L Normal 98-108 [facility] Comment on above: Order Comment: 114.2 Performed By: #### L 100.0500, L500.2500 #### [facility] [address] [place], [address] CO2 [Moles/Vol] 25.4 mmol/L Normal 21.0-32.0 [facility] Comment on above: Order Comment: 114.2 Performed By: #### L 100.0500, L500.2500 #### [facility] [address] [place], [address] Creatinine [Mass/Vol] 1.21 mg/dL High 0.70-1.20 [facility] Comment on above: Order Comment: 114.2 Performed By: #### L 100.0500, L500.2500 #### [facility] [address] [place], [address] GAP 10 Normal 5-15 [facility] Comment on above: Order Comment: 114.2 Performed By: #### L 100.0500, L500.2500 #### [facility] [address] [place], [address] GFR/1.73 sq M.predicted among non-blacks MDRD (S/P/Bld) [Vol rate/Area] 49 mL/min/{1.73_m2} Low >60 [facility] Comment on above: Order Comment: 114.2 Result Comment: mL/m in/1.73m2 CKD-EPI Creatinine Equation (2020) Performed By: #### L 100.0500, L500.2500 #### [facility] [address] [place], [address] Globulin (S) [Mass/Vol] 2.4 g/dL Normal 2.2-4.2 [facility] Comment on above: Order Comment: 114.2 Performed By: #### L 100.0500, L500.2500 #### [facility] [address] [place], [address] Glucose [Mass/Vol] 168 mg/dL High 70-99 [facility] Comment on above: Order Comment: 114.2 Performed By: #### L 100.0500, L500.2500 #### [facility] [address] [place], [address] Potassium [Moles/Vol] 4.1 mmol/L Normal 3.3-5.1 [facility] Comment on above: Order Comment: 114.2 Performed By: #### L 100.0500, L500.2500 #### [facility] [address] [place], [address] Sodium [Moles/Vol] 140 mmol/L Normal 133-145 [facility] Comment on above: Order Comment: 114.2 Performed By: #### L 100.0500, L500.2500 #### [facility] [address] [place], [address] T PROT 5.1 g/dL Low 5.9-8.4 [facility] Comment on above: Order Comment: 114.2 Performed By: #### L 100.0500, L500.2500 #### [facility] [address] [place], [address] Urea nitrogen [Mass/Vol] 33 mg/dL High 4-19 [facility] Comment on above: Order Comment: 114.2 Performed By: #### L 100.0500, L500.2500 #### [facility] [address] [place], [address] Hemoglobin A1con 04-02-2025 HbA1c (Bld) [Mass fraction] 8.6 % High <=5.6 [facility] Comment on above: Order Comment: 114.2 Result Comment: Norm al < 5.7 % Prediabetic 5.7 - 6.4 % Diabetic >or= 6.5 % Please note range changes. Performed By: #### L 100.0500, L500.2500 #### [facility] [address] [place], [address] Lipid Profileon 04-02-2025 CHOL:HDL 4.55 Normal [facility] Comment on above: Order Comment: 114.2 Performed By: #### L 100.0500, L500.2500 #### [facility] [address] [place], [address] Cholesterol [Mass/Vol] 163 mg/dL Normal <=200 [facility] Comment on above: Order Comment: 114.2 Result Comment: Chol esterol level, Desirable <200 mg/dL Borderline high cholesterol 200-239 mg/dL High cholesterol >=240 mg/dL Recommendations of the NCEP Adult Treatment Panel for the following risk-cutoff thresholds for the [place] population. Performed By: #### L 100.0500, L500.2500 #### [facility] [address] [place], [address] Cholesterol in HDL [Mass/Vol] 36 mg/dL Low [facility] Comment on above: Order Comment: 114.2 Result Comment: [place] onal Cholesterol Education Program (NCEP) guidelines: <40 mg/dL: Low HDL-cholesterol (major risk factor for CHD) >= 60 mg/dL: High HDL-cholesterol (negative risk factor for CHD) HDL-cholesterol is affected by a number of factors, e.g. smoking, exercise, hormones, sex and age. Performed By: #### L 100.0500, L500.2500 #### [facility] [address] [place], [address] Cholesterol in LDL [Mass/Vol] 81 mg/dL Normal [facility] Comment on above: Order Comment: 114.2 Result Comment: Bord zqsjeu=638-302 mg/dL Higher Otfb=252 mg/dL or greater Performed By: #### L 100.0500, L500.2500 #### [facility] [address] [place], [address] Cholesterol in VLDL [Mass/Vol] 46 mg/dL High 5-40 [facility] Comment on above: Order Comment: 114.2 Performed By: #### L 100.0500, L500.2500 #### [facility] [address] [place], [address] Triglyceride [Mass/Vol] 230 mg/dL High [facility] Comment on above: Order Comment: 114.2 Result Comment: The drugs N-Acetylcysteine and Metamizole may falsely depress this assay. Normal range: <150 mg/dL Borderline High: 150-199 mg/dL High: 200-499 mg/dL Very High: >500 mg/dL Performed By: #### L 100.0500, L500.2500 #### [facility] [address] [place], [address] Hemoglobin A1con 02-12-2025 HbA1c (Bld) [Mass fraction] 7.9 % High <=5.6 [facility] Comment on above: Order Comment: 114.2 Result Comment: Norm al < 5.7 % Prediabetic 5.7 - 6.4 % Diabetic >or= 6.5 % Please note range changes. Performed By: #### L 100.0500, L500.2500 #### [facility] [address] [place], [address] Hemoglobin A1c percentageOrd ered By: Lucy Quick on 02-12-2025 HbA1c (Bld) [Mass fraction] 7.9 % High <5.7 [facility] Comment on above: Normal < 5.7 % Predi abetic 5.7 - 6.4 % Diabetic >or= 6.5 % Please note range changes. Anion gap in Serum or Plasma Ordered By: Lucy Quick on 01-19-2025 Anion gap [Moles/Vol] 11 mmol/L - [facility] BUN/creatinine ratioOrdered By: Lucy Quick on 01-19-2025 Urea nitrogen/Creatinine [Mass ratio] 26.4 mg/mg High 08-17 [facility] Basic Metabolic Profile (BMP )on 01-19-2025 BUN/CRE 26.4 RATIO High 08-17 [facility] Comment on above: Order Comment: 114.2 Performed By: #### L 100.0500, L500.2500 #### [facility] [address] [place], [address] Calcium [Mass/Vol] 9.1 mg/dL Normal 7.6-11.0 [facility] Comment on above: Order Comment: 114.2 Performed By: #### L 100.0500, L500.2500 #### [facility] [address] [place], [address] Chloride [Moles/Vol] 99 mmol/L Normal 98-108 [facility] Comment on above: Order Comment: 114.2 Performed By: #### L 100.0500, L500.2500 #### [facility] [address] [place], [address] CO2 [Moles/Vol] 28.1 mmol/L Normal 21.0-32.0 [facility] Comment on above: Order Comment: 114.2 Performed By: #### L 100.0500, L500.2500 #### [facility] [address] [place], [address] Creatinine [Mass/Vol] 1.49 mg/dL High 0.70-1.20 [facility] Comment on above: Order Comment: 114.2 Performed By: #### L 100.0500, L500.2500 #### [facility] [address] [place], [address] GAP 11 Normal - [facility] Comment on above: Order Comment: 114.2 Performed By: #### L 100.0500, L500.2500 #### [facility] [address] [place], [address] GFR/1.73 sq M.predicted among non-blacks MDRD (S/P/Bld) [Vol rate/Area] 38 mL/min/{1.73_m2} Low >60 [facility] Comment on above: Order Comment: 114.2 Result Comment: mL/m in/1.73m2 CKD-EPI Creatinine Equation (2020) Performed By: #### L 100.0500, L500.2500 #### [facility] [address] [place], [address] Glucose [Mass/Vol] 110 mg/dL High 70-99 [facility] Comment on above: Order Comment: 114.2 Performed By: #### L 100.0500, L500.2500 #### [facility] [address] [place], [address] Potassium [Moles/Vol] 4.2 mmol/L Normal 3.3-5.1 [facility] Comment on above: Order Comment: 114.2 Performed By: #### L 100.0500, L500.2500 #### [facility] [address] [place], [address] Sodium [Moles/Vol] 139 mmol/L Normal 133-145 [facility] Comment on above: Order Comment: 114.2 Performed By: #### L 100.0500, L500.2500 #### [facility] [address] [place], [address] Urea nitrogen [Mass/Vol] 39 mg/dL High 4-19 [facility] Comment on above: Order Comment: 114.2 Performed By: #### L 100.0500, L500.2500 #### [facility] [address] [place], [address] CBC-Complete Blood Cnt No Di ffon 01-19-2025 Erythrocyte distribution width (RBC) [Ratio] 12.4 % Normal 11.6-14.6 [facility] Comment on above: Order Comment: 114.2 Performed By: #### L 100.0500, L500.2500 #### [facility] [address] [place], [address] Hematocrit (Bld) [Volume fraction] 35.9 % Low 37-47 [facility] Comment on above: Order Comment: 114.2 Performed By: #### L 100.0500, L500.2500 #### [facility] [address] [place], [address] Hemoglobin (Bld) [Mass/Vol] 11.4 g/dL Low 12.0-15.0 [facility] Comment on above: Order Comment: 114.2 Performed By: #### L 100.0500, L500.2500 #### [facility] [address] [place], [address] MCH (RBC) [Entitic mass] 31.8 pg Normal 27.0-32.0 [facility] Comment on above: Order Comment: 114.2 Performed By: #### L 100.0500, L500.2500 #### [facility] [address] [place], [address] MCHC (RBC) [Mass/Vol] 31.8 g/dL Low 32-36 [facility] Comment on above: Order Comment: 114.2 Performed By: #### L 100.0500, L500.2500 #### [facility] [address] [place], [address] MCV (RBC) [Entitic vol] 100.3 fL High 81-99 [facility] Comment on above: Order Comment: 114.2 Performed By: #### L 100.0500, L500.2500 #### [facility] [address] [place], [address] Platelet mean volume (Bld) [Entitic vol] 9.0 fL Normal 6.2-12.0 [facility] Comment on above: Order Comment: 114.2 Performed By: #### L 100.0500, L500.2500 #### [facility] [address] [place], [address] Platelets (Bld) [#/Vol] 232 10*3/uL Normal 150-450 [facility] Comment on above: Order Comment: 114.2 Performed By: #### L 100.0500, L500.2500 #### [facility] [address] [place], [address] RBC (Bld) [#/Vol] 3.58 10*6/uL Low 4.2-5.4 [facility] Comment on above: Order Comment: 114.2 Performed By: #### L 100.0500, L500.2500 #### [facility] [address] [place], [address] RDW SD 45.8 fl High 35.1-43.9 [facility] Comment on above: Order Comment: 114.2 Performed By: #### L 100.0500, L500.2500 #### [facility] [address] [place], [address] WBC (Bld) [#/Vol] 8.4 10*3/uL Normal 4.4-11.0 [facility] Comment on above: Order Comment: 114.2 Performed By: #### L 100.0500, L500.2500 #### [facility] [address] [place], [address] Carbon dioxide, total [Moles /volume] in Central venous bloodOrdered By: Lucy Quick on 01-19-2025 CO2 [Moles/Vol] 28.1 mmol/L 21.0-32.0 [facility] Chloride assayOrdered By: Jemal Campos on 01-19-2025 Chloride [Moles/Vol] 99 mmol/L 98-108 [facility] Erythrocyte distribution wid th (RBC) [Ratio]Ordered By: Lucy Quick on 01-19-2025 Erythrocyte distribution width (RBC) [Entitic vol] 45.8 fL High 35.1-43.9 [facility] Erythrocyte distribution wid th ratioOrdered By: Lucy Quick on 01-19-2025 Erythrocyte distribution width (RBC) [Ratio] 12.4 % 11.6-14.6 [facility] Erythrocyte distribution wid th standard deviationOrdered By: Lucy Quick on 01-19-2025 Erythrocyte distribution width (RBC) [Ratio] 45.8 fl High 35.1-43.9 [facility] GFR/1.73 sq M.predicted [place] g non-blacks MDRD (S/P/Bld) [Vol rate/Area]Ordered By: Lucy Quick on 01-19-2025 Estimated GFR (MDRD) Non-Af Amer 38 Low >60 [facility] Comment on above: mL/min/1.73m2 CKD-EP I Creatinine Equation (2020) Glomerular filtration rate ( GFR) estimation/1.73 sq m using serum, plasma, or whole bOrdered By: Lucy Quick on 01-19-2025 GFR/1.73 sq M.predicted among non-blacks MDRD (S/P/Bld) [Vol rate/Area] 38 mL/min/{1.73_m2} Low >60 [facility] Comment on above: mL/min/1.73m2 CKD-EP I Creatinine Equation (2020) Hematocrit Auto (Bld) [Volum e fraction]Ordered By: Lucy Quick on 01-19-2025 Hematocrit (Bld) [Volume fraction] 35.9 % Low 37-47 [facility] Hemoglobin measurementOrdere d By: Lucy Quick on 01-19-2025 Hemoglobin (Bld) [Mass/Vol] 11.4 g/dL Low 12.0-15.0 [facility] MCV (mean corpuscular volume ) determinationOrdered By: Lucy Quick on 01-19-2025 MCV (RBC) [Entitic vol] 100.3 fL High 81-99 [facility] Mean corpuscular hemoglobin (MCH) determinationOrdered By: Lucy Quick on 01-19-2025 MCH (RBC) [Entitic mass] 31.8 pg 27.0-32.0 [facility] Mean corpuscular hemoglobin concentration (MCHC) determinationOrdered By: Lucy Quick on 01-19-2025 MCHC (RBC) [Mass/Vol] 31.8 g/dL Low 32-36 [facility] Mean platelet volume determi nationOrdered By: Lucy Quick on 01-19-2025 Platelet mean volume (Bld) [Entitic vol] 9.0 fL 6.2-12.0 [facility] Platelet countOrdered By: Jemal Campos on 01-19-2025 Platelets (Bld) [#/Vol] 232 10*3/uL 150-450 [facility] Potassium (Unsp spec) [Mass/ Vol]Ordered By: Lucy Quick on 01-19-2025 Potassium [Moles/Vol] 4.2 mmol/L 3.3-5.1 [facility] Potassium measurement (mass/ volume)Ordered By: Lucy Quick on 01-19-2025 Potassium (Unsp spec) [Mass/Vol] 4.2 mmol/L 3.3-5.1 [facility] RBC Auto (Bld) [#/Vol]Ordere d By: Lucy Quick on 01-19-2025 RBC (Bld) [#/Vol] 3.58 10*6/uL Low 4.2-5.4 [facility] Serum creatinine measurement (mass/volume)Ordered By: Lucy Quick on 01-19-2025 Creatinine [Mass/Vol] 1.49 mg/dL High 0.70-1.20 [facility] Serum glucose measurement (m ass/volume)Ordered By: Lucy Quick on 01-19-2025 Glucose [Mass/Vol] 110 mg/dL High 70-99 [facility] Serum or plasma calcium catracho urement (mass/volume)Ordered By: Lucy Quick on 01-19-2025 Calcium [Mass/Vol] 9.1 mg/dL 7.6-11.0 [facility] Serum or plasma urea nitroge n measurement (mass/volume)Ordered By: Lucy Quick on 01-19-2025 Urea nitrogen [Mass/Vol] 39 mg/dL High 4-19 [facility] Sodium levelOrdered By: Alfonso Quick on 01-19-2025 Sodium [Moles/Vol] 139 mmol/L 133-145 [facility] White blood cell (WBC) count Ordered By: Lucy Quick on 01-19-2025 WBC (Bld) [#/Vol] 8.4 10*3/uL 4.4-11.0 [facility] Basic Metabolic Profile (BMP )on 01-16-2025 BUN Normal 02-14 [facility] Comment on above: Order Comment: 114-2 Result Comment: UTO Performed By: #### L 400.0001, M1.0 #### [facility] [address] [place], [address] BUN/CRE Normal - [facility] Comment on above: Order Comment: 114-2 Result Comment: UTO Performed By: #### L 400.0001, #### [facility] [address] [place], [address] Calcium Normal 7.6-11.0 [facility] Comment on above: Order Comment: 114-2 Result Comment: UTO Performed By: #### L 400.0001, .2199 #### [facility] [address] [place], [address] CL Normal 98-108 [facility] Comment on above: Order Comment: 114-2 Result Comment: UTO Performed By: #### L 400.0001, #### [facility] [address] [place], [address] CO2 Normal 21.0-32.0 [facility] Comment on above: Order Comment: 114-2 Result Comment: UTO Performed By: #### L 400.0001, M1.0 #### [facility] [address] [place], [address] CREAT,SERUM Normal 0.70-1.20 [facility] Comment on above: Order Comment: 114-2 Result Comment: UTO Performed By: #### L 400.0001, M100.2200 #### [facility] [address] [place], [address] eGFR Normal >60 [facility] Comment on above: Order Comment: 114-2 Result Comment: UTO Performed By: #### L 400.0001, M100.2200 #### [facility] [address] [place], [address] GAP Normal 5-15 [facility] Comment on above: Order Comment: 114-2 Result Comment: UTO Performed By: #### L 400.0001, M100.2200 #### [facility] [address] [place], [address] GLU Normal 70-99 [facility] Comment on above: Order Comment: 114-2 Result Comment: UTO Performed By: #### L 400.0001, M100.0 #### [facility] [address] [place], [address] Potassium Normal 3.3-5.1 [facility] Comment on above: Order Comment: 114-2 Result Comment: UTO Performed By: #### L 400.0001, M100.2200 #### [facility] [address] [place], [address] Basic Metabolic Profile (BMP) Normal 133-145 [facility] Comment on above: Order Comment: 114-2 Result Comment: UTO Performed By: #### L 400.0001, M100.2200 #### [facility] [address] [place], [address] CBC-Complete Blood Cnt No Di ffon 01-16-2025 HCT Normal 37-47 [facility] Comment on above: Order Comment: 114.2 Result Comment: UTO Performed By: #### L 100.0500, L500.2500 #### [facility] [address] [place], [address] HGB Normal 12.0-15.0 [facility] Comment on above: Order Comment: 114.2 Result Comment: UTO Performed By: #### L 100.0500, L500.2500 #### [facility] [address] [place], [address] MCH Normal 27.0-32.0 [facility] Comment on above: Order Comment: 114.2 Result Comment: UTO Performed By: #### L 100.0500, L500.2500 #### [facility] [address] [place], [address] MCHC Normal 32-36 [facility] Comment on above: Order Comment: 114.2 Result Comment: UTO Performed By: #### L 100.0500, L500.2500 #### [facility] [address] [place], [address] MCV Normal 81-99 [facility] Comment on above: Order Comment: 114.2 Result Comment: UTO Performed By: #### L 100.0500, L500.2500 #### [facility] [address] [place], [address] PLT Normal 150-450 [facility] Comment on above: Order Comment: 114.2 Result Comment: UTO Performed By: #### L 100.0500, L500.2500 #### [facility] [address] [place], [address] RBC Normal 4.2-5.4 [facility] Comment on above: Order Comment: 114.2 Result Comment: UTO Performed By: #### L 100.0500, L500.2500 #### [facility] [address] [place], [address] RDW CV Normal 11.6-14.6 [facility] Comment on above: Order Comment: 114.2 Result Comment: UTO Performed By: #### L 100.0500, L500.2500 #### [facility] [address] [place], [address] RDW SD Normal 35.1-43.9 [facility] Comment on above: Order Comment: 114.2 Result Comment: UTO Performed By: #### L 100.0500, L500.2500 #### [facility] [address] [place], [address] WBC Normal 4.4-11.0 [facility] Comment on above: Order Comment: 114.2 Result Comment: UTO Performed By: #### L 100.0500, L500.2500 #### [facility] [address] [place], [address] Basic Metabolic Profile (BMP )on 12-19-2024 BUN/CRE 26.7 RATIO High 10-20 [facility] Comment on above: Order Comment: 114-2 Performed By: #### L 400.0001, #### [facility] [address] [place], [address] CA,Total 9.4 mg/dL Normal 8.5-10.1 [facility] Comment on above: Order Comment: 114-2 Performed By: #### L 400.0001, #### [facility] [address] [place], [address] Chloride [Moles/Vol] 100 mmol/L Normal 98-107 [facility] Comment on above: Order Comment: 114-2 Performed By: #### L 400.0001, M1.2199 #### [facility] [address] [place], [address] CO2 [Moles/Vol] 33.0 mmol/L High 21.0-32.0 [facility] Comment on above: Order Comment: 114-2 Performed By: #### L 400.0001, M1.2199 #### [facility] [address] [place], [address] Creatinine [Mass/Vol] 1.46 mg/dL High 0.55-1.02 [facility] Comment on above: Order Comment: 114-2 Result Comment: The validity of the calculated GFR GFRAA in patients over 70 years has not been determined. Clinical correlation is essential. Performed By: #### L 400.0001, .0 #### [facility] [address] [place], [address] EST GFR - AA 46 mL/min Low >60 [facility] Comment on above: Order Comment: 114-2 Result Comment: Afri can [place] GFR Calc Performed By: #### L 400.0001, #### [facility] [address] [place], [address] GAP 5 Normal 5-15 [facility] Comment on above: Order Comment: 114-2 Performed By: #### L 400.0001, #### [facility] [address] [place], [address] GFR/1.73 sq M.predicted among non-blacks MDRD (S/P/Bld) [Vol rate/Area] 38 mL/min/{1.73_m2} Low >60 [facility] Comment on above: Order Comment: 114-2 Result Comment: Non- GFR Calc Performed By: #### L 400.0001, #### [facility] [address] [place], [address] Glucose [Mass/Vol] 178 mg/dL High 74-106 [facility] Comment on above: Order Comment: 114-2 Result Comment: Fast ing Glucose result greater than or equal to 126 mg/dL suggests DIABETES MELLITUS per A.D.A. criteria. Performed By: #### L 400.0001, M1.0 #### [facility] [address] [place], [address] Potassium [Moles/Vol] 4.1 mmol/L Normal 3.5-5.1 [facility] Comment on above: Order Comment: 114-2 Performed By: #### L 400.0001, #### [facility] [address] [place], [address] Sodium [Moles/Vol] 138 mmol/L Normal 136-145 [facility] Comment on above: Order Comment: 114-2 Performed By: #### L 400.0001, #### [facility] [address] [place], [address] Urea nitrogen [Mass/Vol] 39 mg/dL High 7-18 [facility] Comment on above: Order Comment: 114-2 Performed By: #### L 400.0001, #### [facility] [address] [place], [address] Blood urea nitrogen (BUN)/cr eatinine ratioOrdered By: Lucy Quick on 12-19-2024 Urea nitrogen/Creatinine [Mass ratio] 26.7 mg/mg High 10-20 [facility] CBC-Complete Blood Cnt No Di ffon 12-19-2024 Erythrocyte distribution width (RBC) [Ratio] 12.4 % Normal 11.6-14.6 [facility] Comment on above: Order Comment: 114-2 Performed By: #### L 400.0001, #### [facility] [address] [place], [address] Hematocrit (Bld) [Volume fraction] 33.1 % Low 37-47 [facility] Comment on above: Order Comment: 114-2 Performed By: #### L 400.0001, #### [facility] [address] [place], [address] Hemoglobin (Bld) [Mass/Vol] 10.4 g/dL Low 12.0-15.0 [facility] Comment on above: Order Comment: 114-2 Performed By: #### L 400.0001, #### [facility] [address] [place], [address] MCH (RBC) [Entitic mass] 31.3 pg Normal 27.0-32.0 [facility] Comment on above: Order Comment: 114-2 Performed By: #### L 400.0001, #### [facility] [address] [place], [address] MCHC (RBC) [Mass/Vol] 31.4 g/dL Low 32-36 [facility] Comment on above: Order Comment: 114-2 Performed By: #### L 400.0001, #### [facility] [address] [place], [address] MCV (RBC) [Entitic vol] 99.7 fL High 81-99 [facility] Comment on above: Order Comment: 114-2 Performed By: #### L 400.0001, #### [facility] [address] [place], [address] Platelet mean volume (Bld) [Entitic vol] 8.7 fL Normal 6.2-12.0 [facility] Comment on above: Order Comment: 114-2 Performed By: #### L 400.0001, #### [facility] [address] [place], [address] Platelets (Bld) [#/Vol] 215 10*3/uL Normal 150-450 [facility] Comment on above: Order Comment: 114-2 Performed By: #### L 400.0001, #### [facility] [address] [place], [address] RBC (Bld) [#/Vol] 3.32 10*6/uL Low 4.2-5.4 [facility] Comment on above: Order Comment: 114-2 Performed By: #### L 400.0001, M100.2200 #### [facility] [address] [place], [address] RDW SD 44.6 fl High 35.1-43.9 [facility] Comment on above: Order Comment: 114-2 Performed By: #### L 400.0001, M100.2200 #### [facility] [address] [place], [address] WBC (Bld) [#/Vol] 9.0 10*3/uL Normal 4.4-11.0 [facility] Comment on above: Order Comment: 114-2 Performed By: #### L 400.0001, M100.2200 #### [facility] [address] [place], [address] Carbon dioxide measurementOr dered By: Lucy Quick on 12-19-2024 CO2 [Moles/Vol] 33.0 mmol/L High 21.0-32.0 [facility] Chloride measurementOrdered By: Lucy Quick on 12-19-2024 Chloride [Moles/Vol] 100 mmol/L 98-107 [facility] Erythrocyte distribution wid th ratioOrdered By: Lucy Quick on 12-19-2024 Erythrocyte distribution width (RBC) [Ratio] 12.4 % 11.6-14.6 [facility] Erythrocyte distribution wid th standard deviationOrdered By: Lucy Quick on 12-19-2024 Erythrocyte distribution width (RBC) [Entitic vol] 44.6 fL High 35.1-43.9 [facility] Erythrocyte distribution width (RBC) [Ratio] 44.6 fl High 35.1-43.9 [facility] Estimated glomerular filtrat ion rate (GFR) AmericanOrdered By: Lucy Quick on 12-19-2024 Estimated GFR (MDRD) Amer 46 mL/min Low >60 [facility] Comment on above: GFR Calc Glomerular filtration rate ( GFR) estimationOrdered By: Lucy Quick on 12-19-2024 Estimated GFR (MDRD) Non-Af Amer 38 mL/min Low >60 [facility] Comment on above: Non- GFR Calc GFR/1.73 sq M.predicted among non-blacks MDRD (S/P/Bld) [Vol rate/Area] 38 mL/min/{1.73_m2} Low >60 [facility] Comment on above: Non- GFR Calc Glucose measurementOrdered B y: Lucy Quick on 12-19-2024 Glucose [Mass/Vol] 178 mg/dL High 74-106 [facility] Comment on above: Fasting Glucose resu lt greater than or equal to 126 mg/dL suggests DIABETES MELLITUS per A.D.A. criteria. Hematocrit Auto (Bld) [Volum e fraction]Ordered By: Lucy Quick on 12-19-2024 Hematocrit (Bld) [Volume fraction] 33.1 % Low 37-47 [facility] Hemoglobin measurementOrdere d By: Lucy Quick on 12-19-2024 Hemoglobin (Bld) [Mass/Vol] 10.4 g/dL Low 12.0-15.0 [facility] MCV (mean corpuscular volume ) determinationOrdered By: Lucy Quick on 12-19-2024 MCV (RBC) [Entitic vol] 99.7 fL High 81-99 [facility] Mean corpuscular hemoglobin (MCH) determinationOrdered By: Lucy Quick on 12-19-2024 MCH (RBC) [Entitic mass] 31.3 pg 27.0-32.0 [facility] Mean corpuscular hemoglobin concentration (MCHC) determinationOrdered By: Lucy Quick on 12-19-2024 MCHC (RBC) [Mass/Vol] 31.4 g/dL Low 32-36 [facility] Mean platelet volume determi nationOrdered By: Lucy Quick on 12-19-2024 Platelet mean volume (Bld) [Entitic vol] 8.7 fL 6.2-12.0 [facility] Platelet countOrdered By: Jemal Campos on 12-19-2024 Platelets (Bld) [#/Vol] 215 10*3/uL 150-450 [facility] Potassium measurementOrdered By: Lucy Quick on 12-19-2024 Potassium [Moles/Vol] 4.1 mmol/L 3.5-5.1 [facility] RBC Auto (Bld) [#/Vol]Ordere d By: Lucy Quick on 12-19-2024 RBC (Bld) [#/Vol] 3.32 10*6/uL Low 4.2-5.4 [facility] Serum anion gap measurementO rdered By: Lucy Quick on 12-19-2024 Anion gap [Moles/Vol] 5 mmol/L 5-15 [facility] Serum or plasma calcium catracho urement (mass/volume)Ordered By: Lucy Quick on 12-19-2024 Calcium [Mass/Vol] 9.4 mg/dL 8.5-10.1 [facility] Serum or plasma creatinine m easurement (mass/volume)Ordered By: Lucy Quick on 12-19-2024 Creatinine [Mass/Vol] 1.46 mg/dL High 0.55-1.02 [facility] Comment on above: The validity of the calculated GFR & GFRAA in patients over 70 years has not been determined. Clinical correlation is essential. Serum or plasma urea nitroge n measurement (mass/volume)Ordered By: Lucy Quick on 12-19-2024 Urea nitrogen [Mass/Vol] 39 mg/dL High 05-15 [facility] Sodium levelOrdered By: Alfonso Quick on 12-19-2024 Sodium [Moles/Vol] 138 mmol/L 136-145 [facility] White blood cell (WBC) count Ordered By: Lucy Quick on 12-19-2024 WBC (Bld) [#/Vol] 9.0 10*3/uL 4.4-11.0 [facility] Basic Metabolic Profile (BMP )on 12-18-2024 BUN Normal 05-15 [facility] Comment on above: Order Comment: 114.2 Result Comment: BRENDON ENT REFUSED Performed By: #### L 400.0001, M100.2200 #### [facility] [address] [place], [address] BUN/CRE Normal 08-17 [facility] Comment on above: Order Comment: 114.2 Result Comment: BRENDON ENT REFUSED Performed By: #### L 400.0001, M100.2200 #### [facility] [address] [place], [address] CA,Total Normal 8.5-10.1 [facility] Comment on above: Order Comment: 114.2 Result Comment: BRENDON ENT REFUSED Performed By: #### L 400.0001, #### [facility] [address] [place], [address] CL Normal 98-107 [facility] Comment on above: Order Comment: 114.2 Result Comment: BRENDON ENT REFUSED Performed By: #### L 400.0001, #### [facility] [address] [place], [address] CO2 Normal 21.0-32.0 [facility] Comment on above: Order Comment: 114.2 Result Comment: BRENDON ENT REFUSED Performed By: #### L 400.0001, #### [facility] [address] [place], [address] CREAT,SERUM Normal 0.55-1.02 [facility] Comment on above: Order Comment: 114.2 Result Comment: BRENDON ENT REFUSED Performed By: #### L 400.0001, #### [facility] [address] [place], [address] EST GFR Normal >60 [facility] Comment on above: Order Comment: 114.2 Result Comment: BRENDON ENT REFUSED Performed By: #### L 400.0001, #### [facility] [address] [place], [address] EST GFR - AA Normal >60 [facility] Comment on above: Order Comment: 114.2 Result Comment: BRENDON ENT REFUSED Performed By: #### L 400.0001, #### [facility] [address] [place], [address] GAP Normal 5-15 [facility] Comment on above: Order Comment: 114.2 Result Comment: BRENDON ENT REFUSED Performed By: #### L 400.0001, .2199 #### [facility] [address] [place], [address] GLU Normal 74-106 [facility] Comment on above: Order Comment: 114.2 Result Comment: BRENDON ENT REFUSED Performed By: #### L 400.0001, .2199 #### [facility] [address] [place], [address] Potassium Normal 3.5-5.1 [facility] Comment on above: Order Comment: 114.2 Result Comment: BRENDON ENT REFUSED Performed By: #### L 400.0001, .2199 #### [facility] [address] [place], [address] Basic Metabolic Profile (BMP) Normal 136-145 [facility] Comment on above: Order Comment: 114.2 Result Comment: BRENDON ENT REFUSED Performed By: #### L 400.0001, .2199 #### [facility] [address] [place], [address] CBC-Complete Blood Cnt No Di ffon 12-18-2024 HCT Normal 37-47 [facility] Comment on above: Order Comment: 114.2 Result Comment: BRENDON ENT REFUSED Performed By: #### L 400.0001, #### [facility] [address] [place], [address] HGB Normal 12.0-15.0 [facility] Comment on above: Order Comment: 114.2 Result Comment: BRENDON ENT REFUSED Performed By: #### L 400.0001, .2199 #### [facility] [address] [place], [address] MCH Normal 27.0-32.0 [facility] Comment on above: Order Comment: 114.2 Result Comment: BRENDON ENT REFUSED Performed By: #### L 400.0001, #### [facility] [address] [place], [address] MCHC Normal 32-36 [facility] Comment on above: Order Comment: 114.2 Result Comment: BRENDON ENT REFUSED Performed By: #### L 400.0001, .0 #### [facility] [address] [place], [address] MCV Normal 81-99 [facility] Comment on above: Order Comment: 114.2 Result Comment: BRENDON ENT REFUSED Performed By: #### L 400.0001, .2199 #### [facility] [address] [place], [address] PLT Normal 150-450 [facility] Comment on above: Order Comment: 114.2 Result Comment: BRENDON ENT REFUSED Performed By: #### L 400.0001, #### [facility] [address] [place], [address] RBC Normal 4.2-5.4 [facility] Comment on above: Order Comment: 114.2 Result Comment: BRENDON ENT REFUSED Performed By: #### L 400.0001, #### [facility] [address] [place], [address] RDW CV Normal 11.6-14.6 [facility] Comment on above: Order Comment: 114.2 Result Comment: BRENDON ENT REFUSED Performed By: #### L 400.0001, .2199 #### [facility] [address] [place], [address] RDW SD Normal 35.1-43.9 [facility] Comment on above: Order Comment: 114.2 Result Comment: BRENDON ENT REFUSED Performed By: #### L 400.0001, M1.0 #### [facility] [address] [place], [address] WBC Normal 4.4-11.0 [facility] Comment on above: Order Comment: 114.2 Result Comment: BRENDON ENT REFUSED Performed By: #### L 400.0001, M100.2200 #### [facility] [address] [place], [address] Urine Cultureon 11-12-2024 URC #4 If Gram Positive Harshal susceptibility studies are desired, contact the Microbiology Laboratory within 48 hours [phone]. Urine Culture Copy of report sent to Infection Control Printer [id number] 11/10/24 8170 LUCA. Urine Culture RESULTS CALLED TO QUINCY Alvarenga 11/10/24 135Obdulio Locke. REPORT READ BACK BY . Urine Culture ESBL Escherichia coli [place] Count 25,000-50,000 MARKER ESBL producing OrganismA MARKER ESBL producing OrganismA [place] Count 25,000-50,000 Proteus mirabilis [place] Count 25,000-50,000 Corynebact. pseudodiphtheritic Staphylococcus warneri ESBL Escherichia coli: REACTION Ampicillin Islt ASHU >=32 R Corynebact. pseudodiphtheritic Cefepime Islt ASHU 16 cefTRIAXone Islt ASHU >=64 R Ciprofloxacin Islt ASHU >=4 B-Lactamase Extended Susc Islt POS Gentamicin Islt ASHU <=1 S levoFLOXacin Islt ASHU >=8 R Meropenem Islt ASHU <=0.25 S Nitrofurantoin Islt ASHU <=16 S Pip+Tazo Islt ASHU 8 S TMP SMX Islt ASHU <=20 S ESBL Escherichia coli: REACTION Amikacin Islt ASHU 4 S Doxycycline Islt ASHU >=16 R Eravacycline Islt ASHU 0.25 S Imipenem Islt ASHU <=0.25 S Tobramycin Islt ASHU 8 Minocycline Islt ASHU 8 I Proteus mirabilis: REACTION Ampicillin Islt ASHU <=2 S Ampicillin+Sulbac Islt ASHU <=2 S Cefepime Islt ASHU <=0.12 S cefTRIAXone Islt ASHU <=0.25 S Ciprofloxacin Islt ASHU >=4 Gentamicin Islt ASHU <=1 S levoFLOXacin Islt ASHU R Meropenem Islt ASHU <=0.25 S Nitrofurantoin Islt ASHU 128 R Pip+Tazo Islt ASHU <=4 S TMP SMX Islt ASHU >=320 R Staphylococcus warneri: REACTION cefOXitin Susc Islt NEG Doxycycline Islt ASHU >=16 R Clindamycin.induced Susc Islt POS Gentamicin Islt ASHU <=0.5 S Linezolid Islt ASHU 1 Nitrofurantoin Islt ASHU 32 S Oxacillin Susc Islt <=0.25 S Tetracycline Islt ASHU >=16 R TMP SMX Islt ASHU <=10 S Vancomycin Islt ASHU 1 S Normal [facility] Comment on above: Performed By: #### L 100.0500, L500.2500 #### [facility] [address] [place], [address] Urinalysis, Completeon 11-05 EPI,SQUAMOUS 0-5 SEEN Normal 5-10 [facility] Comment on above: Order Comment: 114.2 Performed By: #### L 100.0500, L500.2500 #### [facility] [address] [place], [address] BACTERIA 0 SEEN Normal None Seen [facility] Comment on above: Order Comment: 114.2 Performed By: #### L 100.0500, L500.2500 #### [facility] [address] [place], [address] Mucus Ql (Urine sed) 0 SEEN Normal [facility] Comment on above: Order Comment: 114.2 Performed By: #### L 100.0500, L500.2500 #### [facility] [address] [place], [address] RBC 0 SEEN Normal 0-5 [facility] Comment on above: Order Comment: 114.2 Performed By: #### L 100.0500, L500.2500 #### [facility] [address] [place], [address] WBC 0 SEEN Normal 0-5 [facility] Comment on above: Order Comment: 114.2 Performed By: #### L 100.0500, L500.2500 #### [facility] [address] [place], [address] Bilirubin Test strip Ql (U)O rdered By: Lucy Quick on 11-04-2024 Bilirubin Ql (U) Negative Negative [facility] Epithelial cells.squamous LM Ql (Urine sed)Ordered By: Lucy Quick on 11-04-2024 Epithelial cells.squamous LM.HPF (Urine sed) [#/Area] 0 /[HPF] 5-10 [facility] Glucose Ql (U)Ordered By: Jemal Campos on 11-04-2024 Urine Glucose (UA) Normal mg/dl Normal [facility] Ketones Test strip Ql (U)Ord ered By: Lucy Quick on 11-04-2024 Ketones Ql (U) Negative Negative [facility] Microscopic analysis of urin e for red blood cells (RBC)Ordered By: Lucy Quick on 11-04-2024 Urine RBC 0 SEEN /hpf 0-5 [facility] Mucus LM Ql (Urine sed)Order ed By: Lucy Quick on 11-04-2024 Mucus Ql (Urine sed) 0 SEEN /hpf [facility] Nitrite Test strip Ql (U)Ord ered By: Lucy Quick on 11-04-2024 Nitrite Ql (U) Negative Negative [facility] Protein Test strip Ql (U)Ord ered By: Lucy Quick on 11-04-2024 Protein Ql (U) Negative Negative [facility] Urine blood detectionOrdered By: Lucy Quick on 11-04-2024 Urine Occult Blood Negative Negative [facility] Urine clarityOrdered By: Josee Quick on 11-04-2024 Clarity (U) Clear Clear [facility] Urine color determinationOrd ered By: Lucy Quick on 11-04-2024 Color (U) Yellow Yellow [facility] Urine cultureOrdered By: Josee Quick on 11-04-2024 Bacteria identified Cx Nom (U) ESBL Escherichia coli Abnormal [facility] Bacteria identified Cx Nom (U) Proteus mirabilis Abnormal [facility] Bacteria identified Cx Nom (U) Staphylococcus warneri Abnormal [facility] Bacteria identified Cx Nom (U) Corynebact. pseudodiphtheritic Abnormal [facility] Urine leukocyte esterase det ection by dipstickOrdered By: Lucy Quick on 11-04-2024 Leukocyte esterase Test strip Ql (U) Negative Negative [facility] Urine pHOrdered By: Lucy mcguire on 11-04-2024 pH (U) 7.0 [pH] 5.0 - 8.0 [facility] Urine sediment bacteria coun t by microscopy (number/high power field)Ordered By: Lucy Quick on 11-04-2024 Bacteria LM.HPF (Urine sed) [#/Area] 0 /[HPF] None Seen [facility] Urine specific gravity measu rementOrdered By: Lucy Quick on 11-04-2024 Specific gravity (U) [Rel density] 1.010 1.002-1.030 [facility] Urobilinogen Ql (U)Ordered B y: Lucy Quick on 11-04-2024 Urine Urobilinogen Normal mg/dl Normal [facility] White blood cell countOrdere d By: Lucy Quick on 11-04-2024 Urine WBC 0 SEEN /hpf 0-5 [facility] Basic Metabolic Profile (BMP )on 10-09-2024 BUN/CRE 28.4 RATIO High 10-20 [facility] Comment on above: Order Comment: 114.2 Performed By: #### L 100.0500, L500.2500 #### [facility] [address] [place], [address] CA,Total 9.5 mg/dL Normal 8.5-10.1 [facility] Comment on above: Order Comment: 114.2 Performed By: #### L 100.0500, L500.2500 #### [facility] [address] [place], [address] Chloride [Moles/Vol] 101 mmol/L Normal 98-107 [facility] Comment on above: Order Comment: 114.2 Performed By: #### L 100.0500, L500.2500 #### [facility] [address] [place], [address] CO2 [Moles/Vol] 29.0 mmol/L Normal 21.0-32.0 [facility] Comment on above: Order Comment: 114.2 Performed By: #### L 100.0500, L500.2500 #### [facility] [address] [place], [address] Creatinine [Mass/Vol] 1.48 mg/dL High 0.55-1.02 [facility] Comment on above: Order Comment: 114.2 Result Comment: The validity of the calculated GFR GFRAA in patients over 70 years has not been determined. Clinical correlation is essential. Performed By: #### L 100.0500, L500.2500 #### [facility] [address] [place], [address] EST GFR - AA 45 mL/min Low >60 [facility] Comment on above: Order Comment: 114.2 Result Comment: Afri can [place] GFR Calc Performed By: #### L 100.0500, L500.2500 #### [facility] [address] [place], [address] GAP 6 Normal 5-15 [facility] Comment on above: Order Comment: 114.2 Performed By: #### L 100.0500, L500.2500 #### [facility] [address] [place], [address] GFR/1.73 sq M.predicted among non-blacks MDRD (S/P/Bld) [Vol rate/Area] 37 mL/min/{1.73_m2} Low >60 [facility] Comment on above: Order Comment: 114.2 Result Comment: Non- GFR Calc Performed By: #### L 100.0500, L500.2500 #### [facility] [address] [place], [address] Glucose [Mass/Vol] 166 mg/dL High 74-106 [facility] Comment on above: Order Comment: 114.2 Result Comment: Fast ing Glucose result greater than or equal to 126 mg/dL suggests DIABETES MELLITUS per A.D.A. criteria. Performed By: #### L 100.0500, L500.2500 #### [facility] [address] [place], [address] Potassium [Moles/Vol] 4.8 mmol/L Normal 3.5-5.1 [facility] Comment on above: Order Comment: 114.2 Result Comment: Mode rate Hemolysis, Result may be falsely increased. Performed By: #### L 100.0500, L500.2500 #### [facility] [address] [place], [address] Sodium [Moles/Vol] 136 mmol/L Normal 136-145 [facility] Comment on above: Order Comment: 114.2 Performed By: #### L 100.0500, L500.2500 #### [facility] [address] [place], [address] Urea nitrogen [Mass/Vol] 42 mg/dL High 7-18 [facility] Comment on above: Order Comment: 114.2 Performed By: #### L 100.0500, L500.2500 #### [facility] [address] [place], [address] Blood urea nitrogen (BUN)/cr eatinine ratioOrdered By: Lucy Quick on 10-09-2024 Urea nitrogen/Creatinine [Mass ratio] 28.4 mg/mg High 10-20 [facility] CBC-Complete Blood Cnt No Di ffon 10-09-2024 Erythrocyte distribution width (RBC) [Ratio] 13.2 % Normal 11.6-14.6 [facility] Comment on above: Order Comment: 114.2 Performed By: #### L 100.0500, L500.2500 #### [facility] [address] [place], [address] Hematocrit (Bld) [Volume fraction] 36.1 % Low 37-47 [facility] Comment on above: Order Comment: 114.2 Performed By: #### L 100.0500, L500.2500 #### [facility] [address] [place], [address] Hemoglobin (Bld) [Mass/Vol] 11.0 g/dL Low 12.0-15.0 [facility] Comment on above: Order Comment: 114.2 Performed By: #### L 100.0500, L500.2500 #### [facility] [address] [place], [address] MCH (RBC) [Entitic mass] 31.1 pg Normal 27.0-32.0 [facility] Comment on above: Order Comment: 114.2 Performed By: #### L 100.0500, L500.2500 #### [facility] [address] [place], [address] MCHC (RBC) [Mass/Vol] 30.5 g/dL Low 32-36 [facility] Comment on above: Order Comment: 114.2 Performed By: #### L 100.0500, L500.2500 #### [facility] [address] [place], [address] MCV (RBC) [Entitic vol] 102.0 fL High 81-99 [facility] Comment on above: Order Comment: 114.2 Performed By: #### L 100.0500, L500.2500 #### [facility] [address] [place], [address] Platelet mean volume (Bld) [Entitic vol] 9.1 fL Normal 6.2-12.0 [facility] Comment on above: Order Comment: 114.2 Performed By: #### L 100.0500, L500.2500 #### [facility] [address] [place], [address] Platelets (Bld) [#/Vol] 211 10*3/uL Normal 150-450 [facility] Comment on above: Order Comment: 114.2 Performed By: #### L 100.0500, L500.2500 #### [facility] [address] [place], [address] RBC (Bld) [#/Vol] 3.54 10*6/uL Low 4.2-5.4 [facility] Comment on above: Order Comment: 114.2 Performed By: #### L 100.0500, L500.2500 #### [facility] [address] [place], [address] RDW SD 48.8 fl High 35.1-43.9 [facility] Comment on above: Order Comment: 114.2 Performed By: #### L 100.0500, L500.2500 #### [facility] [address] [place], [address] WBC (Bld) [#/Vol] 7.4 10*3/uL Normal 4.4-11.0 [facility] Comment on above: Order Comment: 114.2 Performed By: #### L 100.0500, L500.2500 #### [facility] [address] [place], [address] Carbon dioxide measurementOr dered By: Lucy Quick on 10-09-2024 CO2 [Moles/Vol] 29.0 mmol/L 21.0-32.0 [facility] Chloride measurementOrdered By: Lucy Quick on 10-09-2024 Chloride [Moles/Vol] 101 mmol/L 98-107 [facility] Erythrocyte distribution wid th ratioOrdered By: Lucy Quick on 10-09-2024 Erythrocyte distribution width (RBC) [Ratio] 13.2 % 11.6-14.6 [facility] Erythrocyte distribution wid th standard deviationOrdered By: Lucy Quick on 10-09-2024 Erythrocyte distribution width (RBC) [Entitic vol] 48.8 fL High 35.1-43.9 [facility] Estimated glomerular filtrat ion rate (GFR) AmericanOrdered By: Lucy Quick on 10-09-2024 Estimated GFR (MDRD) Amer 45 mL/min Low >60 [facility] Comment on above: GFR Calc Glomerular filtration rate ( GFR) estimationOrdered By: Lucy Quick on 10-09-2024 Estimated GFR (MDRD) Non-Af Amer 37 mL/min Low >60 [facility] Comment on above: Non- GFR Calc Glucose measurementOrdered B y: Lucy Quick on 10-09-2024 Glucose [Mass/Vol] 166 mg/dL High 74-106 [facility] Comment on above: Fasting Glucose resu lt greater than or equal to 126 mg/dL suggests DIABETES MELLITUS per A.D.A. criteria. Hematocrit Auto (Bld) [Volum e fraction]Ordered By: Lucy Quick on 10-09-2024 Hematocrit (Bld) [Volume fraction] 36.1 % Low 37-47 [facility] Hemoglobin measurementOrdere d By: Lucy Quick on 10-09-2024 Hemoglobin (Bld) [Mass/Vol] 11.0 g/dL Low 12.0-15.0 [facility] MCV (mean corpuscular volume ) determinationOrdered By: Lucy Quick on 10-09-2024 MCV (RBC) [Entitic vol] 102.0 fL High 81-99 [facility] Mean corpuscular hemoglobin (MCH) determinationOrdered By: Lucy Quick on 10-09-2024 MCH (RBC) [Entitic mass] 31.1 pg 27.0-32.0 [facility] Mean corpuscular hemoglobin concentration (MCHC) determinationOrdered By: Lucy Quick on 10-09-2024 MCHC (RBC) [Mass/Vol] 30.5 g/dL Low 32-36 [facility] Mean platelet volume determi nationOrdered By: Lucy Quick on 10-09-2024 Platelet mean volume (Bld) [Entitic vol] 9.1 fL 6.2-12.0 [facility] Platelet countOrdered By: Jemal Campos on 10-09-2024 Platelets (Bld) [#/Vol] 211 10*3/uL 150-450 [facility] Potassium measurementOrdered By: Lucy Quick on 10-09-2024 Potassium [Moles/Vol] 4.8 mmol/L 3.5-5.1 [facility] Comment on above: Moderate Hemolysis, Result may be falsely increased. RBC Auto (Bld) [#/Vol]Ordere d By: Lucy Quick on 10-09-2024 RBC (Bld) [#/Vol] 3.54 10*6/uL Low 4.2-5.4 [facility] Serum anion gap measurementO rdered By: Lucy Quick on 10-09-2024 Anion gap [Moles/Vol] 6 mmol/L 5-15 [facility] Serum or plasma calcium catracho urement (mass/volume)Ordered By: Lucy Quick on 10-09-2024 Calcium [Mass/Vol] 9.5 mg/dL 8.5-10.1 [facility] Serum or plasma creatinine m easurement (mass/volume)Ordered By: Lucy Quick on 10-09-2024 Creatinine [Mass/Vol] 1.48 mg/dL High 0.55-1.02 [facility] Comment on above: The validity of the calculated GFR & GFRAA in patients over 70 years has not been determined. Clinical correlation is essential. Serum or plasma urea nitroge n measurement (mass/volume)Ordered By: Lucy Quick on 10-09-2024 Urea nitrogen [Mass/Vol] 42 mg/dL High 7-18 [facility] Sodium levelOrdered By: Alfonso Quick on 10-09-2024 Sodium [Moles/Vol] 136 mmol/L 136-145 [facility] White blood cell (WBC) count Ordered By: Lucy Quick on 10-09-2024 WBC (Bld) [#/Vol] 7.4 10*3/uL 4.4-11.0 [facility] Albumin to globulin ratioOrd ered By: Lucy Quick on 10-02-2024 Albumin/Globulin [Mass ratio] 0.8 {ratio} Low 0.9-2.4 [facility] Comment on above: Order Comment: 114.2 Performed By: #### L 100.0500, L500.4050, L500.4100, L501.9917 #### [facility] [place], [address] Automated blood erythrocyte countOrdered By: Lucy Quick on 10-02-2024 RBC (Bld) [#/Vol] 3.28 10*6/uL Low 4.2-5.4 [facility] Comment on above: Order Comment: 114.2 Performed By: #### L 100.0500, L500.4050, L500.4100, L501.9985 #### [facility] [address] [place], [place], [address] Automated blood hematocrit ( percentage)Ordered By: Lucy Quick on 10-02-2024 Hematocrit (Bld) [Volume fraction] 33.0 % Low 37-47 [facility] Comment on above: Order Comment: 114.2 Performed By: #### L 100.0500, L500.4050, L500.4100, L501.9985 #### [facility] [address] [place], [place], [address] Bilirubin, totalOrdered By: Lucy Quick on 10-02-2024 Bilirubin [Mass/Vol] 0.30 mg/dL Normal 0.20-1.00 [facility] Comment on above: For patients on eltr ombopag therapy, use of Dimension [place] TBIL is not recommended. Order Comment: 114.2 Result Comment: For patients on eltrombopag therapy, use of Dimension [place] TBIL is not recommended. Performed By: #### L 100.0500, L500.4050, L500.4100, L501.9985 #### [facility] [address] [place], [place], [address] Blood urea nitrogen (BUN)/cr eatinine ratioOrdered By: Lucy Quick on 10-02-2024 Urea nitrogen/Creatinine [Mass ratio] 29.6 mg/mg High 10-20 [facility] CBC-Complete Blood Cnt No Di ffon 10-02-2024 RDW SD 46.5 fl High 35.1-43.9 [facility] Comment on above: Order Comment: 114.2 Performed By: #### L 100.0500, L500.4050, L500.4100, L501.9985 #### [facility] [address] [place], [address] Carbon dioxide measurementOr dered By: Lucy Quick on 10-02-2024 CO2 [Moles/Vol] 29.0 mmol/L Normal 21.0-32.0 [facility] Comment on above: Order Comment: 114.2 Performed By: #### L 100.0500, L500.4050, L500.4100, L501.9985 #### [facility] [address] [place], [address] Chloride measurementOrdered By: Lucy Quick on 10-02-2024 Chloride [Moles/Vol] 102 mmol/L Normal 98-107 [facility] Comment on above: Order Comment: 114.2 Performed By: #### L 100.0500, L500.4050, L500.4100, L501.9985 #### [facility] [address] [place], [address] Comprehensive Metabolic Prof ilon 10-02-2024 ALK P 56 U/L Normal 45-117 [facility] Comment on above: Order Comment: 114.2 Performed By: #### L 100.0500, L500.4050, L500.4100, L501.9985 #### [facility] [address] [place], [address] BUN/CRE 29.6 RATIO High 10-20 [facility] Comment on above: Order Comment: 114.2 Performed By: #### L 100.0500, L500.4050, L500.4100, L501.9985 #### [facility] [address] [place], [address] CA,Total 8.4 mg/dL Low 8.5-10.1 [facility] Comment on above: Order Comment: 114.2 Performed By: #### L 100.0500, L500.4050, L500.4100, L501.9985 #### [facility] [address] [place], [address] EST GFR - AA 39 mL/min Low >60 [facility] Comment on above: Order Comment: 114.2 Result Comment: Afri can [place] GFR Calc Performed By: #### L 100.0500, L500.4050, L500.4100, L501.9985 #### [facility] [address] [place], [address] GAP 7 Normal 5-15 [facility] Comment on above: Order Comment: 114.2 Performed By: #### L 100.0500, L500.4050, L500.4100, L501.9985 #### [facility] [address] [place], [address] GFR/1.73 sq M.predicted among non-blacks MDRD (S/P/Bld) [Vol rate/Area] 32 mL/min/{1.73_m2} Low >60 [facility] Comment on above: Order Comment: 114.2 Result Comment: Non- GFR Calc Performed By: #### L 100.0500, L500.4050, L500.4100, L501.9985 #### [facility] [address] [place], [address] T PROT 5.5 g/dL Low 6.4-8.2 [facility] Comment on above: Order Comment: 114.2 Performed By: #### L 100.0500, L500.4050, L500.4100, L501.9985 #### [facility] [address] [place], [address] Comprehensive Metabolic Prof ilOrdered By: Lucy Quick on 10-02-2024 AST [Catalytic activity/Vol] 32 U/L Normal 15-37 [facility] Comment on above: Slight Hemolysis, Re sult may be falsely increased. Order Comment: 114.2 Result Comment: Slig ht Hemolysis, Result may be falsely increased. Performed By: #### L 100.0500, L500.4050, L500.4100, L501.9985 #### [facility] [address] [place], [address] Erythrocyte distribution wid th ratioOrdered By: Lucy Quick on 10-02-2024 Erythrocyte distribution width (RBC) [Ratio] 12.8 % Normal 11.6-14.6 [facility] Comment on above: Order Comment: 114.2 Performed By: #### L 100.0500, L500.4050, L500.4100, L501.9985 #### [facility] [address] [place], [place], [id number] Erythrocyte distribution wid th standard deviationOrdered By: Lucy Quick on 10-02-2024 Erythrocyte distribution width (RBC) [Entitic vol] 46.5 fL High 35.1-43.9 [facility] Estimated glomerular filtrat ion rate (GFR) AmericanOrdered By: Lucy Quick on 10-02-2024 Estimated GFR (MDRD) Amer 39 mL/min Low >60 [facility] Comment on above: GFR Calc Glomerular filtration rate ( GFR) estimationOrdered By: Lucy Quick on 10-02-2024 Estimated GFR (MDRD) Non-Af Amer 32 mL/min Low >60 [facility] Comment on above: Non- GFR Calc Glucose measurementOrdered B y: Lucy Quick on 10-02-2024 Glucose [Mass/Vol] 247 mg/dL High 74-106 [facility] Comment on above: Glucose result great er than or equal to 200 mg/dLsuggests DIABETES MELLITUS per A.D.A. criteria. Order Comment: 114.2 Result Comment: Gluc ose result greater than or equal to 200 mg/dL suggests DIABETES MELLITUS per A.D.A. criteria. Performed By: #### L 100.0500, L500.4050, L500.4100, L501.9985 #### [facility] [address] [place], [place], [id number] Hemoglobin A1c percentageOrd ered By: Lucy Quick on 10-02-2024 HbA1c (Bld) [Mass fraction] 7.4 % High 3.8-5.6 [facility] Comment on above: Normal < 5.7 % Predi abetic 5.7 - 6.4 % Diabetic >or= 6.5 % Please note range changes. Order Comment: 114.2 Result Comment: Norm al < 5.7 % Prediabetic 5.7 - 6.4 % Diabetic >or= 6.5 % Please note range changes. Performed By: #### L 100.0500, L500.4050, L500.4100, L501.9985 #### [facility] [address] [place], [address] Hemoglobin measurementOrdere d By: Lucy Quick on 10-02-2024 Hemoglobin (Bld) [Mass/Vol] 10.4 g/dL Low 12.0-15.0 [facility] Comment on above: Order Comment: 114.2 Performed By: #### L 100.0500, L500.4050, L500.4100, L501.9985 #### [facility] [address] [place], [address] High density lipoprotein (HD L) measurementOrdered By: Lucy Quick on 10-02-2024 Cholesterol in HDL [Mass/Vol] 39 mg/dL Low [facility] Comment on above: The drugs N-Acetylcy steine and Metamizole may falsely depress this assay. Reference Range HDL <40 mg/dL Low HDL Cholesterol HDL >or= 60 mg/dL High HDL Cholesterol Order Comment: 114.2 Result Comment: The drugs N-Acetylcysteine and Metamizole may falsely depress this assay. Reference Range HDL <40 mg/dL Low HDL Cholesterol HDL >or= 60 mg/dL High HDL Cholesterol Performed By: #### L 100.0500, L500.4050, L500.4100, L501.9985 #### [facility] [address] [place], [address] Lipid Profileon 10-02-2024 Cholesterol in VLDL [Mass/Vol] 75 mg/dL High 5-40 [facility] Comment on above: Order Comment: 114.2 Performed By: #### L 100.0500, L500.4050, L500.4100, L501.9985 #### [facility] [address] [place], [place], [id number] Low density lipoprotein (LDL ) cholesterol measurementOrdered By: Lucy Quick on 10-02-2024 Cholesterol in LDL [Mass/Vol] 77 mg/dL Normal 0-130 [facility] Comment on above: Order Comment: 114.2 Performed By: #### L 100.0500, L500.4050, L500.4100, L501.9985 #### [facility] [address] [place], [address] MCV (mean corpuscular volume ) determinationOrdered By: Lucy Quick on 10-02-2024 MCV (RBC) [Entitic vol] 100.6 fL High 81-99 [facility] Comment on above: Order Comment: 114.2 Performed By: #### L 100.0500, L500.4050, L500.4100, L501.9985 #### [facility] [address] [place], [place], [id number] Mean corpuscular hemoglobin (MCH) determinationOrdered By: Lucy Quick on 10-02-2024 MCH (RBC) [Entitic mass] 31.7 pg Normal 27.0-32.0 [facility] Comment on above: Order Comment: 114.2 Performed By: #### L 100.0500, L500.4050, L500.4100, L501.9985 #### [facility] [address] [place], [place], [id number] Mean corpuscular hemoglobin concentration (MCHC) determinationOrdered By: Lucy Quick on 10-02-2024 MCHC (RBC) [Mass/Vol] 31.5 g/dL Low 32-36 [facility] Comment on above: Order Comment: 114.2 Performed By: #### L 100.0500, L500.4050, L500.4100, L501.9985 #### [facility] [address] [place], [address] Mean platelet volume determi nationOrdered By: Lucy Quick on 10-02-2024 Platelet mean volume (Bld) [Entitic vol] 9.1 fL Normal 6.2-12.0 [facility] Comment on above: Order Comment: 114.2 Performed By: #### L 100.0500, L500.4050, L500.4100, L501.9985 #### [facility] [address] [place], [address] Platelet countOrdered By: Jemal Campos on 10-02-2024 Platelets (Bld) [#/Vol] 286 10*3/uL Normal 150-450 [facility] Comment on above: Order Comment: 114.2 Performed By: #### L 100.0500, L500.4050, L500.4100, L501.9985 #### [facility] [address] [place], [place], [id number] Potassium measurementOrdered By: Lucy Quick on 10-02-2024 Potassium [Moles/Vol] 4.1 mmol/L Normal 3.5-5.1 [facility] Comment on above: Slight Hemolysis, Re sult may be falsely increased. Order Comment: 114.2 Result Comment: Slig ht Hemolysis, Result may be falsely increased. Performed By: #### L 100.0500, L500.4050, L500.4100, L501.9985 #### [facility] [address] [place], [address] Serum anion gap measurementO rdered By: Lucy Quick on 10-02-2024 Anion gap [Moles/Vol] 7 mmol/L 5-15 [facility] Serum globulin measurementOr dered By: Lucy Quick on 10-02-2024 Globulin (S) [Mass/Vol] 3.0 g/dL Normal 2.2-4.2 [facility] Comment on above: Order Comment: 114.2 Performed By: #### L 100.0500, L500.4050, L500.4100, L501.9985 #### [facility] [address] [place], [place], [id number] Serum or plasma alanine barnes otransferase (ALT) measurementOrdered By: Lucy Quick on 10-02-2024 ALT [Catalytic activity/Vol] 49 U/L Normal 13-56 [facility] Comment on above: Order Comment: 114.2 Performed By: #### L 100.0500, L500.4050, L500.4100, L501.9985 #### [facility] [address] [place], [place], [id number] Serum or plasma albumin catracho urement (mass/volume)Ordered By: Lucy Quick on 10-02-2024 Albumin [Mass/Vol] 2.5 g/dL Low 3.2-5.0 [facility] Comment on above: Order Comment: 114.2 Performed By: #### L 100.0500, L500.4050, L500.4100, L501.9985 #### [facility] [address] [place], [place], [id number] Serum or plasma alkaline sana sphatase measurementOrdered By: Lucy Quick on 10-02-2024 ALP [Catalytic activity/Vol] 56 U/L 45-117 [facility] Serum or plasma calcium catracho urement (mass/volume)Ordered By: Lucy Quick on 10-02-2024 Calcium [Mass/Vol] 8.4 mg/dL Low 8.5-10.1 [facility] Serum or plasma cholesterol measurement (mass/volume)Ordered By: Lucy Quick on 10-02-2024 Cholesterol [Mass/Vol] 191 mg/dL Normal 200 [facility] Comment on above: <200 mg/dL Desirable 200-240 mg/dL Borderline >240 mg/dL High Risk Order Comment: 114.2 Result Comment: <200 mg/dL Desirable 200-240 mg/dL Borderline >240 mg/dL High Risk Performed By: #### L 100.0500, L500.4050, L500.4100, L501.9985 #### [facility] [address] [place], [address] Serum or plasma creatinine m easurement (mass/volume)Ordered By: Lucy Quick on 10-02-2024 Creatinine [Mass/Vol] 1.69 mg/dL High 0.55-1.02 [facility] Comment on above: The validity of the calculated GFR & GFRAA in patients over 70 years has not been determined. Clinical correlation is essential. Order Comment: 114.2 Result Comment: The validity of the calculated GFR GFRAA in patients over 70 years has not been determined. Clinical correlation is essential. Performed By: #### L 100.0500, L500.4050, L500.4100, L501.9985 #### [facility] [address] [place], [address] Serum or plasma urea nitroge n measurement (mass/volume)Ordered By: Lucy Quick on 10-02-2024 Urea nitrogen [Mass/Vol] 50 mg/dL High 7-18 [facility] Comment on above: Order Comment: 114.2 Performed By: #### L 100.0500, L500.4050, L500.4100, L501.9985 #### [facility] [address] [place], [address] Sodium levelOrdered By: Alfonso Quick on 10-02-2024 Sodium [Moles/Vol] 138 mmol/L Normal 136-145 [facility] Comment on above: Order Comment: 114.2 Performed By: #### L 100.0500, L500.4050, L500.4100, L501.9985 #### [facility] [address] [place], [address] Total proteinOrdered By: Josee Quick on 10-02-2024 Protein [Mass/Vol] 5.5 g/dL Low 6.4-8.2 [facility] Triglycerides measurementOrd ered By: Lucy Quick on 10-02-2024 Triglyceride [Mass/Vol] 373 mg/dL High [facility] Comment on above: The drugs N-Acetylcy steine and Metamizole may falsely depress this assay.Serum Triglycerides Reference Interval Normal <150 mg/dL Borderline high 150 - 199 mg/dL High 200 - 499 mg/dL Very High > or = 500 mg/dL Order Comment: 114.2 Result Comment: The drugs N-Acetylcysteine and Metamizole may falsely depress this assay. Serum Triglycerides Reference Interval Normal <150 mg/dL Borderline high 150 - 199 mg/dL High 200 - 499 mg/dL Very High > or = 500 mg/dL Performed By: #### L 100.0500, L500.4050, L500.4100, L501.9985 #### [facility] [address] [place], [address] Very low density lipoprotein (VLDL) cholesterol measurementOrdered By: Lucy Quick on 10-02-2024 VLDL Cholesterol 75 mg/dL High 5-40 [facility] White blood cell (WBC) count Ordered By: Lucy Quick on 10-02-2024 WBC (Bld) [#/Vol] 10.5 10*3/uL Normal 4.4-11.0 [facility] Comment on above: Order Comment: 114.2 Performed By: #### L 100.0500, L500.4050, L500.4100, L501.9985 #### [facility] [address] [place], [address] Basic Metabolic Profile (BMP )on 09-17-2024 BUN/CRE 29.9 RATIO High 08-17 [facility] Comment on above: Order Comment: 114.2 Performed By: #### L 100.0500, L500.2500 #### [facility] [address] [place], [address] CA,Total 9.0 mg/dL Normal 8.5-10.1 [facility] Comment on above: Order Comment: 114.2 Performed By: #### L 100.0500, L500.2500 #### [facility] [address] [place], [address] Chloride [Moles/Vol] 101 mmol/L Normal 98-107 [facility] Comment on above: Order Comment: 114.2 Performed By: #### L 100.0500, L500.2500 #### [facility] [address] [place], [address] CO2 [Moles/Vol] 34.0 mmol/L High 21.0-32.0 [facility] Comment on above: Order Comment: 114.2 Performed By: #### L 100.0500, L500.2500 #### [facility] [address] [place], [address] Creatinine [Mass/Vol] 1.27 mg/dL High 0.55-1.02 [facility] Comment on above: Order Comment: 114.2 Result Comment: The validity of the calculated GFR GFRAA in patients over 70 years has not been determined. Clinical correlation is essential. Performed By: #### L 100.0500, L500.2500 #### [facility] [address] [place], [address] EST GFR - AA 54 mL/min Low >60 [facility] Comment on above: Order Comment: 114.2 Result Comment: Afri can [place] GFR Calc Performed By: #### L 100.0500, L500.2500 #### [facility] [address] [place], [address] GAP 5 Normal 5-15 [facility] Comment on above: Order Comment: 114.2 Performed By: #### L 100.0500, L500.2500 #### [facility] [address] [place], [address] GFR/1.73 sq M.predicted among non-blacks MDRD (S/P/Bld) [Vol rate/Area] 45 mL/min/{1.73_m2} Low >60 [facility] Comment on above: Order Comment: 114.2 Result Comment: Non- GFR Calc Performed By: #### L 100.0500, L500.2500 #### [facility] [address] [place], [address] Glucose [Mass/Vol] 137 mg/dL High 74-106 [facility] Comment on above: Order Comment: 114.2 Result Comment: Fast ing Glucose result greater than or equal to 126 mg/dL suggests DIABETES MELLITUS per A.D.A. criteria. Performed By: #### L 100.0500, L500.2500 #### [facility] [address] [place], [address] Potassium [Moles/Vol] 4.2 mmol/L Normal 3.5-5.1 [facility] Comment on above: Order Comment: 114.2 Performed By: #### L 100.0500, L500.2500 #### [facility] [address] [place], [address] Sodium [Moles/Vol] 140 mmol/L Normal 136-145 [facility] Comment on above: Order Comment: 114.2 Performed By: #### L 100.0500, L500.2500 #### [facility] [address] [place], [address] Urea nitrogen [Mass/Vol] 38 mg/dL High 7-18 [facility] Comment on above: Order Comment: 114.2 Performed By: #### L 100.0500, L500.2500 #### [facility] [address] [place], [address] Blood urea nitrogen (BUN)/cr eatinine ratioOrdered By: Lucy Quick on 09-17-2024 Urea nitrogen/Creatinine [Mass ratio] 29.9 mg/mg High - [facility] CBC-Complete Blood Cnt No Di ffon 09-17-2024 Erythrocyte distribution width (RBC) [Ratio] 12.5 % Normal 11.6-14.6 [facility] Comment on above: Order Comment: 114.2 Performed By: #### L 100.0500, L500.2500 #### [facility] [address] [place], [address] Hematocrit (Bld) [Volume fraction] 31.5 % Low 37-47 [facility] Comment on above: Order Comment: 114.2 Performed By: #### L 100.0500, L500.2500 #### [facility] [address] [place], [address] Hemoglobin (Bld) [Mass/Vol] 10.0 g/dL Low 12.0-15.0 [facility] Comment on above: Order Comment: 114.2 Performed By: #### L 100.0500, L500.2500 #### [facility] [address] [place], [address] MCH (RBC) [Entitic mass] 32.1 pg High 27.0-32.0 [facility] Comment on above: Order Comment: 114.2 Performed By: #### L 100.0500, L500.2500 #### [facility] [address] [place], [address] MCHC (RBC) [Mass/Vol] 31.7 g/dL Low 32-36 [facility] Comment on above: Order Comment: 114.2 Performed By: #### L 100.0500, L500.2500 #### [facility] [address] [place], [address] MCV (RBC) [Entitic vol] 101.0 fL High 81-99 [facility] Comment on above: Order Comment: 114.2 Performed By: #### L 100.0500, L500.2500 #### [facility] [address] [place], [address] Platelet mean volume (Bld) [Entitic vol] 8.9 fL Normal 6.2-12.0 [facility] Comment on above: Order Comment: 114.2 Performed By: #### L 100.0500, L500.2500 #### [facility] [address] [place], [address] Platelets (Bld) [#/Vol] 238 10*3/uL Normal 150-450 [facility] Comment on above: Order Comment: 114.2 Performed By: #### L 100.0500, L500.2500 #### [facility] [address] [place], [address] RBC (Bld) [#/Vol] 3.12 10*6/uL Low 4.2-5.4 [facility] Comment on above: Order Comment: 114.2 Performed By: #### L 100.0500, L500.2500 #### [facility] [address] [place], [address] RDW SD 46.8 fl High 35.1-43.9 [facility] Comment on above: Order Comment: 114.2 Performed By: #### L 100.0500, L500.2500 #### [facility] [address] [place], [address] WBC (Bld) [#/Vol] 8.8 10*3/uL Normal 4.4-11.0 [facility] Comment on above: Order Comment: 114.2 Performed By: #### L 100.0500, L500.2500 #### [facility] [address] [place], [address] Carbon dioxide measurementOr dered By: Lucy Quick on 09-17-2024 CO2 [Moles/Vol] 34.0 mmol/L High 21.0-32.0 [facility] Chloride measurementOrdered By: Lucy Quick on 09-17-2024 Chloride [Moles/Vol] 101 mmol/L 98-107 [facility] Erythrocyte distribution wid th ratioOrdered By: Lucy Quick on 09-17-2024 Erythrocyte distribution width (RBC) [Ratio] 12.5 % 11.6-14.6 [facility] Erythrocyte distribution wid th standard deviationOrdered By: Lucy Quick on 09-17-2024 Erythrocyte distribution width (RBC) [Entitic vol] 46.8 fL High 35.1-43.9 [facility] Estimated glomerular filtrat ion rate (GFR) AmericanOrdered By: Lucy Quick on 09-17-2024 Estimated GFR (MDRD) Amer 54 mL/min Low >60 [facility] Comment on above: GFR Calc Glomerular filtration rate ( GFR) estimationOrdered By: Lucy Quick on 09-17-2024 Estimated GFR (MDRD) Non-Af Amer 45 mL/min Low >60 [facility] Comment on above: Non- GFR Calc Glucose measurementOrdered B y: Lucy Quick on 09-17-2024 Glucose [Mass/Vol] 137 mg/dL High 74-106 [facility] Comment on above: Fasting Glucose resu lt greater than or equal to 126 mg/dL suggests DIABETES MELLITUS per A.D.A. criteria. Hematocrit Auto (Bld) [Volum e fraction]Ordered By: Lucy Quick on 09-17-2024 Hematocrit (Bld) [Volume fraction] 31.5 % Low 37-47 [facility] Hemoglobin measurementOrdere d By: Lucy Quick on 09-17-2024 Hemoglobin (Bld) [Mass/Vol] 10.0 g/dL Low 12.0-15.0 [facility] MCV (mean corpuscular volume ) determinationOrdered By: Lucy Quick on 09-17-2024 MCV (RBC) [Entitic vol] 101.0 fL High 81-99 [facility] Mean corpuscular hemoglobin (MCH) determinationOrdered By: Lucy Quick on 09-17-2024 MCH (RBC) [Entitic mass] 32.1 pg High 27.0-32.0 [facility] Mean corpuscular hemoglobin concentration (MCHC) determinationOrdered By: Lucy Quick on 09-17-2024 MCHC (RBC) [Mass/Vol] 31.7 g/dL Low 32-36 [facility] Mean platelet volume determi nationOrdered By: Lucy Quick on 09-17-2024 Platelet mean volume (Bld) [Entitic vol] 8.9 fL 6.2-12.0 [facility] Platelet countOrdered By: Jemal Campos on 09-17-2024 Platelets (Bld) [#/Vol] 238 10*3/uL 150-450 [facility] Potassium measurementOrdered By: Lucy Quick on 09-17-2024 Potassium [Moles/Vol] 4.2 mmol/L 3.5-5.1 [facility] RBC Auto (Bld) [#/Vol]Ordere d By: Lucy Quick on 09-17-2024 RBC (Bld) [#/Vol] 3.12 10*6/uL Low 4.2-5.4 [facility] Serum anion gap measurementO rdered By: Lucy Quick on 09-17-2024 Anion gap [Moles/Vol] 5 mmol/L 5-15 [facility] Serum or plasma calcium catracho urement (mass/volume)Ordered By: Lucy Quick on 09-17-2024 Calcium [Mass/Vol] 9.0 mg/dL 8.5-10.1 [facility] Serum or plasma creatinine m easurement (mass/volume)Ordered By: Lucy Quick on 09-17-2024 Creatinine [Mass/Vol] 1.27 mg/dL High 0.55-1.02 [facility] Comment on above: The validity of the calculated GFR & GFRAA in patients over 70 years has not been determined. Clinical correlation is essential. Serum or plasma urea nitroge n measurement (mass/volume)Ordered By: Lucy Quick on 09-17-2024 Urea nitrogen [Mass/Vol] 38 mg/dL High 7-18 [facility] Sodium levelOrdered By: Alfonso Quick on 09-17-2024 Sodium [Moles/Vol] 140 mmol/L 136-145 [facility] White blood cell (WBC) count Ordered By: Lucy Quick on 09-17-2024 WBC (Bld) [#/Vol] 8.8 10*3/uL 4.4-11.0 [facility] Vitamin D,25 Hydroxyon 08-19 Vitamin D 25-OH 49.2 ng/mL Normal [facility] Comment on above: Order Comment: 114.2 Result Comment: Fatmata min D 25(OH) Status Range Deficiency <20 ng/mL (50nmol/L) Insufficiency 20 - 30 ng/mL (50 - 75 nmol/L) Sufficiency 30 - 100 ng/mL (75 - 250 nmol/L) Toxicity >100 ng/mL (>250 nmol/L) Performed By: #### L 400.0001, M100.0 #### [facility] [address] [facility] [address] [place], [place], [id number] Urine Cultureon 08-18-2024 [facility] Urine Culture Providencia stuartii [place] Count >100,000 Escherichia coli Escherichia coli Providencia stuartii: REACTION Ampicillin Islt ASHU >=32 R Ampicillin+Sulbac Islt ASHU >=32 ceFAZolin Islt ASHU >=64 R Cefepime Islt ASHU <=0.12 S cefTRIAXone Islt ASHU <=0.25 S Ciprofloxacin Islt ASHU >=4 R Gentamicin Islt ASHU R Imipenem Islt ASHU 0.5 S levoFLOXacin Islt ASHU >=8 R Nitrofurantoin Islt ASHU 256 R Pip+Tazo Islt ASHU <=4 S Tobramycin Islt ASHU R TMP SMX Islt ASHU 40 S Escherichia coli: REACTION Ampicillin Islt ASHU 16 I Ampicillin+Sulbac Islt ASHU 4 ceFAZolin Islt ASHU <=4 S Cefepime Islt ASHU <=0.12 S cefTRIAXone Islt ASHU <=0.25 S Ciprofloxacin Islt ASHU >=4 R B-Lactamase Extended Susc Islt NEG Gentamicin Islt ASHU <=1 S Imipenem Islt ASHU <=0.25 S levoFLOXacin Islt ASHU >=8 R Nitrofurantoin Islt ASHU <=16 S Pip+Tazo Islt ASHU 8 S Tobramycin Islt ASHU <=1 S TMP SMX Islt ASHU <=20 S Normal [facility] Comment on above: Performed By: #### L 400.0001, M100.2200 #### [facility] [address] [place], [address] Urinalysis, Completeon 08-14 BACTERIA 1+ /hpf Normal None Seen [facility] Comment on above: Order Comment: SCCAT HETER SPECIMEN Performed By: #### L 400.0001, M100.2200 #### [facility] [address] [place], [address] EPI,SQUAMOUS 0-5 SEEN Normal 5-10 [facility] Comment on above: Order Comment: SCCAT HETER SPECIMEN Performed By: #### L 400.0001, M100.2200 #### [facility] [address] [place], [address] RBC 0-5 SEEN Normal 0-5 [facility] Comment on above: Order Comment: SCCAT HETER SPECIMEN Performed By: #### L 400.0001, M100.2200 #### [facility] [address] [place], [address] WBC 0-5 SEEN Normal 0-5 [facility] Comment on above: Order Comment: SCCAT HETER SPECIMEN Performed By: #### L 400.0001, M100.2200 #### [facility] [address] [place], [address] Mucus Ql (Urine sed) 0 SEEN Normal [facility] Comment on above: Order Comment: SCCAT HETER SPECIMEN Performed By: #### L 400.0001, M100.2200 #### [facility] [address] [place], [address] Urine Cultureon 08-12-2024 [facility] Escherichia coli [place] Count 11,000-25,000 Providencia stuartii Providencia stuartii PMIR [place] Count 1000-10,000 Proteus mirabilis Ampicillin Islt ASHU 16 Ampicillin+Sulbac Islt ASHU 4 S ceFAZolin Islt ASHU <=4 Cefepime Islt ASHU <=0.12 S cefTRIAXone Islt ASHU <=0.25 S Ciprofloxacin Islt ASHU >=4 R B-Lactamase Extended Susc Islt NEG Gentamicin Islt ASHU <=1 S Imipenem Islt ASHU <=0.25 S levoFLOXacin Islt ASHU >=8 R Nitrofurantoin Islt ASHU <=16 S Pip+Tazo Islt ASHU 8 S Tobramycin Islt ASHU <=1 S TMP SMX Islt ASHU <=20 S Providencia stuartii: REACTION Amikacin Islt ASHU <=2 S cefoTEtan Islt ASHU <=4 S Meropenem Islt ASHU <=0.25 Tetracycline Islt ASHU >=16 R Cefuroxime Islt ASHU 4 S Providencia stuartii: REACTION Ampicillin Islt ASHU R Ampicillin+Sulbac Islt ASHU 8 S ceFAZolin Islt ASHU Cefepime Islt ASHU <=0.12 S cefTRIAXone Islt ASHU <=0.25 S Ciprofloxacin Islt ASHU >=4 R Gentamicin Islt ASHU R Imipenem Islt ASHU 0.5 S levoFLOXacin Islt ASHU >=8 R Nitrofurantoin Islt ASHU 256 R Pip+Tazo Islt ASHU <=4 S Tobramycin Islt ASHU R TMP SMX Islt ASHU 40 S Proteus mirabilis: REACTION Ampicillin Islt ASHU <=2 S Ampicillin+Sulbac Islt ASHU <=2 S ceFAZolin Islt ASHU 8 Cefepime Islt ASHU <=0.12 S cefTRIAXone Islt ASHU <=0.25 S Ciprofloxacin Islt ASHU 1 R Gentamicin Islt ASHU <=1 S levoFLOXacin Islt ASHU 1 I Nitrofurantoin Islt ASHU R Pip+Tazo Islt ASHU <=4 S Tobramycin Islt ASHU <=1 S TMP SMX Islt ASHU >=320 R Normal [facility] Comment on above: Performed By: #### L 400.0001, #### [facility] [address] [place], [place], [address] Urinalysis, Completeon 08-08 WBC 0-5 SEEN Normal 0-5 [facility] Comment on above: Order Comment: CHERYL TER SPECIMEN Performed By: #### L 400.0001, M1 #### [facility] [address] [place], [place], [address] BACTERIA 1+ /hpf Normal None Seen [facility] Comment on above: Order Comment: CHERYL TER SPECIMEN Performed By: #### L 400.0001, M100.2200 #### [facility] [address] [place], [address] EPI,SQUAMOUS 0-5 SEEN Normal 5-10 [facility] Comment on above: Order Comment: CHERYL TER SPECIMEN Performed By: #### L 400.0001, M100.2200 #### [facility] [address] [place], [address] Mucus Ql (Urine sed) 0 SEEN Normal [facility] Comment on above: Order Comment: CHERYL TER SPECIMEN Performed By: #### L 400.0001, M100.2200 #### [facility] [address] [place], [address] RBC 0 SEEN Normal 0-5 [facility] Comment on above: Order Comment: CHERYL TER SPECIMEN Performed By: #### L 400.0001, M100.0 #### [facility] [address] [place], [address] CARECOORDon 03-09-2024 [facility] Site of Care Admission Date: 03/05/2024 07:08 PM Patient Name: KIMBERLY PATEL Location: [address]/[facility] [id number] Date of : 1955 - Placement Information - Referral Type:Skilled Nursing ICF - Return Referral ID:[id number] Provider Name:[facility] Address 1:[address] Address 2: City:[place] Selection Factors:Returning to Facility State:[facility] [place] Care Coordination Da rachana Note/Update Clinical Update: active discharge orders Discharge Plan: return to [facility] Discharge Barriers: none Chart reviewed. Received message from attending stating patient is cleared for discharge. Discharge orders in. ANN and med rec complete. Submitted ride request via [employer] - awaiting acceptance and confirmation. Received notification that cot transportation has been setup for 1000 with [employer]. Phoned patient's daughter, Alexandro Cote, at [phone]. Received VM identifying full name. LM to notify of patient discharge and transport time. Notified RN. RN will notify patient. Messaged facility via [employer] to notify. Sent AVS and MAR to facility via [employer]. TCC will remain available for any additional discharge needs. [facility] CBC W Auto Differential pane l (Bld)on 03-09-2024 Basophils (Bld) [#/Vol] 0.0 10*3/uL 0.0 - 0.2 10*3/uL [facility] Basophils/100 WBC (Bld) 0.6 % 0.0 - 2.0 % [facility] Eosinophils (Bld) [#/Vol] 0.3 10*3/uL 0.0 - 0.5 10*3/uL [facility] Eosinophils/100 WBC (Bld) 5.4 % 0.0 - 6.0 % [facility] Erythrocyte distribution width (RBC) [Ratio] 17.4 % High 11.5 - 15.0 % [facility] Hematocrit (Bld) [Volume fraction] 25.7 % Low 35.0 - 47.0 % [facility] Hemoglobin (Bld) [Mass/Vol] 7.9 g/dL Low 11.7 - 16.0 g/dL [facility] Immature granulocytes (Bld) [#/Vol] 0.1 10*3/uL High NINF - 0.1 10*3/uL [facility] Immature granulocytes/100 WBC (Bld) 1.1 % 0.0 - 2.0 % [facility] Interpretation and review of laboratory results Abnormal [facility] Lymphocytes (Bld) [#/Vol] 2.2 10*3/uL 1.0 - 4.3 10*3/uL [facility] Lymphocytes/100 WBC (Bld) 34.3 % 15.0 - 45.0 % [facility] MCH (RBC) [Entitic mass] 29.4 pg 26.0 - 34.0 pg [facility] MCHC (RBC) [Mass/Vol] 30.7 % 30.5 - 36.0 % [facility] MCV (RBC) [Entitic vol] 95.5 fL 77.0 - 99.0 fL [facility] Monocytes (Bld) [#/Vol] 0.7 10*3/uL 0.0 - 0.9 10*3/uL [facility] Monocytes/100 WBC (Bld) 10.6 % 5.0 - 13.0 % [facility] Neutrophils (Bld) [#/Vol] 3.0 10*3/uL 1.8 - 7.5 10*3/uL [facility] Neutrophils/100 WBC (Bld) 48.0 % 38.0 - 82.0 % [facility] Nucleated RBC/100 WBC (Bld) [Ratio] 0.0 % [facility] Platelet mean volume (Bld) [Entitic vol] 8.6 fL Low 9.0 - 12.7 fL [facility] Platelets (Bld) [#/Vol] 256 10*3/uL 140 - 440 10*3/uL [facility] RBC (Bld) [#/Vol] 2.69 10*6/uL Low 3.80 - 5.2 0 10*6/uL [facility] WBC (Bld) [#/Vol] 6.3 10*3/uL 3.6 - 10.7 10*3/uL [facility] CBC WITH AUTO DIFFERENTIALon 03-09-2024 Basophils (Bld) [#/Vol] 0.0 10*3/uL Normal 0.0-0.2 [facility] Comment on above: Performed By: #### L [id number] ####Parts Sales Associate: STEVIE ELMORE ([id number])[facility] ([facility])[address] [place] [address] Basophils/100 WBC (Bld) 0.6 % Normal 0.0-2.0 [facility] Comment on above: Performed By: #### L [id number] ####Parts Sales Associate: STEVIE ELMORE ([phone])[facility] ([facility])[address] [place] [address] Eosinophils (Bld) [#/Vol] 0.3 10*3/uL Normal 0.0-0.5 [facility] Comment on above: Performed By: #### L [id number] ####Parts Sales Associate: STEVIE ELMORE ([id number])[facility] ([facility])[address] Eosinophils/100 WBC (Bld) 5.4 % Normal 0.0-6.0 [facility] Comment on above: Performed By: #### L [id number] ####Parts Sales Associate: STEVIE ELMORE ([id number])[facility] [place] [address] Erythrocyte distribution width (RBC) [Ratio] 17.4 % High 11.5-15.0 [facility] Comment on above: Performed By: #### L [id number] ####Parts Sales Associate: STEVIE MOYASuPERICO ([id number])[facility] ([facility])[address] Hematocrit (Bld) [Volume fraction] 25.7 % Low 35.0-47.0 [facility] Comment on above: Performed By: #### L [id number] ####Parts Sales Associate: STEVIE MOYAFAHAD ([phone])[facility] Hemoglobin (Bld) [Mass/Vol] 7.9 g/dL Low 11.7-16.0 [facility] Comment on above: Performed By: #### L [id number] ####Parts Sales Associate: STEVIE CATARINA ([phone])[facility] ([facility])[address] [place] [address] IMMATURE GRANS % 1.1 % Normal 0.0-2.0 [facility] Comment on above: Performed By: #### L [id number] ####Parts Sales Associate: STEVIE PUTNAMPERICO ([phone])[facility] ([facility])[address] [place] [address] IMMATURE GRANS ABSOLUTE 0.1 10*3/uL High <0.1 [facility] Comment on above: Performed By: #### L [id number] ####Parts Sales Associate: STEVIE PUTNAMPERICO ([id number])[facility] [place] [address] Lymphocytes (Bld) [#/Vol] 2.2 10*3/uL Normal 1.0-4.3 [facility] Comment on above: Performed By: #### L [id number] ####Parts Sales Associate: STEVIE PUTNAMPERICO ([id number])[facility] [place] [address] Lymphocytes/100 WBC (Bld) 34.3 % Normal 15.0-45.0 [facility] Comment on above: Performed By: #### L [id number] ####Parts Sales Associate: STEVIE MOYASuPERICO ([id number])[facility] (SBHLAB)[address] MCH (RBC) [Entitic mass] 29.4 pg Normal 26.0-34.0 [facility] Comment on above: Performed By: #### L [id number] ####Parts Sales Associate: STEVIE CATARINA ([id number])[facility] ([facility]HL[facility])[address] MCHC 30.7 % Normal 30.5-36.0 [facility] Comment on above: Performed By: #### L [id number] ####Parts Sales Associate: STEVIE CATARINA ([id number])[facility] (SBHL[facility])[address] [place] [address] MCV (RBC) [Entitic vol] 95.5 fL Normal 77.0-99.0 [facility] Comment on above: Performed By: #### L [id number] ####Parts Sales Associate: STEVIE PUTNAMPERICO ([id number])[facility] ALCOCERCH[facility] (SBHLAB)[address] [place] [address] Monocytes (Bld) [#/Vol] 0.7 10*3/uL Normal 0.0-0.9 [facility] Comment on above: Performed By: #### L [id number] ####Parts Sales Associate: STEVIE ELMORE ([phone])[facility] BARBCH[address] (SBHLAB)[address] [place] [address] Monocytes/100 WBC (Bld) 10.6 % Normal 5.0-13.0 [facility] Comment on above: Performed By: #### L [id number] ####Parts Sales Associate: STEVIE ELMORE ([id number])[facility] [facility] (SBHLAB)[address] NEUTROPHILS ABSOLUTE 3.0 10*3/uL Normal 1.8-7.5 [facility] Comment on above: Performed By: #### L [id number] ####Parts Sales Associate: STEVIE ELMORE ([id number])[facility] [place] (SBHLAB)[address] Neutrophils/100 WBC (Bld) 48.0 % Normal 38.0-82.0 [facility] Comment on above: Performed By: #### L [id number] ####Parts Sales Associate: STEVIE ELMORE ([id number])[facility] [place] (SB[facility])[address] NRBC 0.0 /100 WBCs Normal 0.0-2.0 [facility] Comment on above: Performed By: #### L [id number] ####Parts Sales Associate: STEVIE ELMORE ([id number])[facility] [place] ([facility])[address] Platelet mean volume (Bld) [Entitic vol] 8.6 fL Low 9.0-12.7 [facility] Comment on above: Performed By: #### L [id number] ####Parts Sales Associate: STEVIE ELMORE ([id number])[facility] [place] ([facility]HL[facility])[address] [place] [address] [place] Platelets (Bld) [#/Vol] 256 10*3/uL Normal 140-440 [facility] Comment on above: Performed By: #### L [id number] ####Parts Sales Associate: STEVIE ELMORE ([id number])[facility] [place] ([facility])[address] [place] [address] [place] RBC (Bld) [#/Vol] 2.69 10*6/uL Low 3.80-5.20 [facility] Comment on above: Performed By: #### L [id number] ####Parts Sales Associate: STEVIE ELMORE ([id number])[facility] [place] ([facility])[address] WBC (Bld) [#/Vol] 6.3 10*3/uL Normal 3.6-10.7 [facility] Comment on above: Performed By: #### L [id number] ####Parts Sales Associate: STEVIE ELMORE ([id number])[facility] ([facility])[address] COMPREHENSIVE METABOLIC PANE Wade 03-09-2024 Albumin [Mass/Vol] 2.5 g/dL Low 3.5-5.0 [facility] Comment on above: Performed By: #### L AB103, LAB17 #### Parts Sales Associate: STEVIE ELMORE ([id number]) [facility] [facility] (SBHLAB) [address] ALP [Catalytic activity/Vol] 82 U/L Normal 38-126 [facility] Comment on above: Performed By: #### L AB103, LAB17 #### Parts Sales Associate: STEVIE ELMORE ([id number]) [facility] (SBHL[facility]) [address] ALT [Catalytic activity/Vol] 18 U/L Normal 0-34 [facility] Comment on above: Performed By: #### L AB103, LAB17 #### Parts Sales Associate: STEVIE ELMORE ([id number]) [facility] (HLAB) [address] Anion gap [Moles/Vol] 5 mmol/L Normal 3-13 [facility] Comment on above: Performed By: #### L AB103, LAB17 #### Parts Sales Associate: STEVIE ELMORE ([id number]) [facility] ([facility]) [address] AST [Catalytic activity/Vol] 17 U/L Normal 15-46 [facility] Comment on above: Performed By: #### L AB103, LAB17 #### Parts Sales Associate: STEVIE ELMORE ([id number]) [facility] ([facility]) [address] Bilirubin [Mass/Vol] 0.3 mg/dL Normal 0.2-1.3 [facility] Comment on above: Performed By: #### L AB103, LAB17 #### Parts Sales Associate: STEVIE ELMORE ([id number]) [facility] ([facility]) [address] Calcium [Mass/Vol] 7.8 mg/dL Low 8.4-10.4 [facility] Comment on above: Performed By: #### L AB103, LAB17 #### Parts Sales Associate: STEVIE ELMORE ([id number]) [facility] ([facility]) [address] Chloride [Moles/Vol] 108 mmol/L High 98-107 [facility] Comment on above: Performed By: #### L AB103, LAB17 #### Parts Sales Associate: STEVIE ELMORE ([id number]) [facility] ([facility]) [address] CO2 [Moles/Vol] 26 mmol/L Normal 22-30 [facility] Comment on above: Performed By: #### L AB103, LAB17 #### Parts Sales Associate: STEVIE ELMORE ([id number]) [facility] ([facility]) [address] Creatinine [Mass/Vol] 1.22 mg/dL High 0.52-1.04 [facility] Comment on above: Performed By: #### L AB103, LAB17 #### Parts Sales Associate: STEVIE ELMORE ([id number]) [facility] (SBHLAB) [address] [place] [address] [place] GLOMERULAR FILTRATION RATE ML/MIN/1.73 SQ M.PREDICTED 49.0 mL/min/1.73m*2 Low >60.0 [facility] Comment on above: Result Comment: Calc ulation based on the Chronic Kidney Disease Epidemiology Collaboration (CKD-EPI) equation refit without adjustment for race Performed By: #### L AB103, LAB17 #### Parts Sales Associate: STEVIE ELMORE ([id number]) [facility] ([facility] [address] [place] [address] [place] Glucose [Mass/Vol] 147 mg/dL High 70-100 [facility] Comment on above: Performed By: #### L AB103, LAB17 #### Parts Sales Associate: STEVIE ELMORE ([id number]) [facility] ([facility]) [address] Potassium [Moles/Vol] 4.6 mmol/L Normal 3.5-5.1 [facility] Comment on above: Performed By: #### L AB103, LAB17 #### Parts Sales Associate: STEVIE ELMORE ([id number]) [facility] ([facility]) [address] Protein [Mass/Vol] 4.8 g/dL Low 6.3-8.2 [facility] Comment on above: Performed By: #### L AB103, LAB17 #### Parts Sales Associate: STEVIE ELMORE ([id number]) [facility] ([facility]) [address] Sodium [Moles/Vol] 138 mmol/L Normal 135-145 [facility] Comment on above: Performed By: #### L AB103, LAB17 #### Parts Sales Associate: STEVIE ELMORE ([id number]) [facility] ([facility]) [address] Urea nitrogen [Mass/Vol] 26 mg/dL High 7-17 [facility] Comment on above: Performed By: #### L AB103, LAB17 #### Parts Sales Associate: STEVIE ELMORE ([id number]) [facility] ([facility]) [address] Comprehensive metabolic 1998 panelon 03-09-2024 Albumin [Mass/Vol] 2.5 g/dL Low 3.5 - 5.0 g/dL [facility] ALP [Catalytic activity/Vol] 82 U/L 38 - 126 U/L [facility] ALT [Catalytic activity/Vol] 18 U/L 0 - 34 U/L [facility] Anion gap [Moles/Vol] 5 mmol/L 3 - 13 mmol/L [facility] AST [Catalytic activity/Vol] 17 U/L 15 - 46 U/L [facility] Bilirubin [Mass/Vol] 0.3 mg/dL 0.2 - 1 .3 mg/dL [facility] Calcium [Mass/Vol] 7.8 mg/dL Low 8.4 - 10. 4 mg/dL [facility] Chloride [Moles/Vol] 108 mmol/L High 98 - 10 7 mmol/L [facility] CO2 [Moles/Vol] 26 mmol/L 22 - 30 mmol/L [facility] Creatinine [Mass/Vol] 1.22 mg/dL High 0.52 - 1.04 mg/dL [facility] GFR/1.73 sq M.predicted MDRD (S/P/Bld) [Vol rate/Area] 49.0 mL/min/{1.73_m2} Low - PINF [facility] Comment on above: Calculation based on the Chronic Kidney Disease Epidemiology Collaboration (CKD-EPI) equation refit without adjustment for race Glucose [Mass/Vol] 147 mg/dL High 70 - 100 mg/dL [facility] Interpretation and review of laboratory results Abnormal [facility] Potassium [Moles/Vol] 4.6 mmol/L 3.5 - 5.1 mmol/L [facility] Protein [Mass/Vol] 4.8 g/dL Low 6.3 - 8.2 g/dL [facility] Sodium [Moles/Vol] 138 mmol/L 135 - 145 mmol/L [facility] Urea nitrogen [Mass/Vol] 26 mg/dL High 7 - 17 mg/dL [facility] Laboratory - Chemistry and C hemistry - challengeon 03-09-2024 Glucose [Mass/Vol] 152 mg/dL High 70 - 100 mg/dL [facility] No Panel Informationon 03-09 Interpretation and review of laboratory results Abnormal [facility] Performed by: [facility], [address] [place] [address] [place] [address] CLIA ID: [id number] [facility] Radiology Study observation (narrative) [facility] alth Bacteria identified Cx Nom ( U)Ordered By: Herrera Macedo on 03-08-2024 Interpretation and review of laboratory results Abnormal [facility] CARECOORDon 03-08-2024 [facility] Care Coordination Da rachana Note/Update Clinical Update: blood cultures from 03/07 resulted as normal this AM so, per 03/07 ID note, no further antimicrobial treatment is needed. No leukocytosis per this morning's labs. Discharge Plan: return to [facility] Discharge Barriers: clinical stability Chart reviewed. Messaged attending to check on clinical stability for discharge. Awaiting response back. Received response back stating, further discussion with ID yesterday they were recommending negative cultures x72 hours, so patient will not be discharged today. if labs are stable tomorrow, plan for discharge tomorrow. TCC will continue to follow. Normal [facility] CBC W Auto Differential pane l (Bld)Ordered By: Lindsay Mcintosh on 03-08-2024 Basophils (Bld) [#/Vol] 0.0 10*3/uL 0.0 - 0.2 10*3/uL [facility] Basophils/100 WBC (Bld) 0.4 % 0.0 - 2.0 % [facility] Eosinophils (Bld) [#/Vol] 0.3 10*3/uL 0.0 - 0.5 10*3/uL [facility] Eosinophils/100 WBC (Bld) 4.5 % 0.0 - 6.0 % [facility] Erythrocyte distribution width (RBC) [Ratio] 17.2 % High 11.5 - 15.0 % [facility] Hematocrit (Bld) [Volume fraction] 27.5 % Low 35.0 - 47.0 % [facility] Hemoglobin (Bld) [Mass/Vol] 8.3 g/dL Low 11.7 - 16.0 g/dL [facility] Immature granulocytes (Bld) [#/Vol] 0.1 10*3/uL High NINF - 0.1 10*3/uL [employer] [facility] Immature granulocytes/100 WBC (Bld) 1.0 % 0.0 - 2.0 % [facility] Interpretation and review of laboratory results Abnormal [facility] Lymphocytes (Bld) [#/Vol] 2.3 10*3/uL 1.0 - 4.3 10*3/uL [facility] Lymphocytes/100 WBC (Bld) 32.6 % 15.0 - 45.0 % [facility] MCH (RBC) [Entitic mass] 28.5 pg 26.0 - 34.0 pg [facility] MCHC (RBC) [Mass/Vol] 30.2 % Low 30.5 - 36.0 % [facility] MCV (RBC) [Entitic vol] 94.5 fL 77.0 - 99.0 fL [facility] Monocytes (Bld) [#/Vol] 0.8 10*3/uL 0.0 - 0.9 10*3/uL [facility] Monocytes/100 WBC (Bld) 11.7 % 5.0 - 13.0 % [facility] Neutrophils (Bld) [#/Vol] 3.5 10*3/uL 1.8 - 7.5 10*3/uL [facility] Neutrophils/100 WBC (Bld) 49.8 % 38.0 - 82.0 % [facility] Nucleated RBC/100 WBC (Bld) [Ratio] 0.0 % [facility] Platelet mean volume (Bld) [Entitic vol] 8.5 fL Low 9.0 - 12.7 fL [facility] Platelets (Bld) [#/Vol] 298 10*3/uL 140 - 440 10*3/uL [facility] RBC (Bld) [#/Vol] 2.91 10*6/uL Low 3.80 - 5.2 0 10*6/uL [facility] WBC (Bld) [#/Vol] 6.9 10*3/uL 3.6 - 10.7 10*3/uL [facility] [facility] CBC WITH AUTO DIFFERENTIALon 03-08-2024 Basophils (Bld) [#/Vol] 0.0 10*3/uL Normal 0.0-0.2 [facility] Comment on above: Performed By: #### L [id number] #### Parts Sales Associate: STEVIE ELMORE ([phone]) [facility] ([facility] [address] [place] [address] [facility] Basophils/100 WBC (Bld) 0.4 % Normal 0.0-2.0 [facility] Comment on above: Performed By: #### L [id number] #### Parts Sales Associate: STEVIE ELMORE ([phone]) [facility] ([facility] [address] Eosinophils (Bld) [#/Vol] 0.3 10*3/uL Normal 0.0-0.5 [facility] Comment on above: Performed By: #### L [id number] #### Parts Sales Associate: STEVIE ELMORE ([phone]) [facility] [address] Eosinophils/100 WBC (Bld) 4.5 % Normal 0.0-6.0 [facility] Comment on above: Performed By: #### L [id number] #### Parts Sales Associate: STEVIE ELMORE ([phone]) [facility] ([facility]) [address] Erythrocyte distribution width (RBC) [Ratio] 17.2 % High 11.5-15.0 [facility] Comment on above: Performed By: #### L [id number] #### Parts Sales Associate: STEVIE ELMORE ([phone]) [facility] ([facility]) [address] Hematocrit (Bld) [Volume fraction] 27.5 % Low 35.0-47.0 [facility] Comment on above: Performed By: #### L [id number] #### Parts Sales Associate: STEVIE ELMORE ([phone]) [facility] ([facility]) [address] Hemoglobin (Bld) [Mass/Vol] 8.3 g/dL Low 11.7-16.0 [facility] Comment on above: Performed By: #### L [id number] #### Parts Sales Associate: STEVIE ELMORE ([phone]) [facility] ([facility]) [address] IMMATURE GRANS % 1.0 % Normal 0.0-2.0 [facility] Comment on above: Performed By: #### L [id number] #### Parts Sales Associate: STEVIE ELMORE ([phone]) [facility] ([facility]) [address] IMMATURE GRANS ABSOLUTE 0.1 10*3/uL High <0.1 [facility] Comment on above: Performed By: #### L [id number] #### Parts Sales Associate: STEVIE ELMORE ([phone]) [facility] ([facility]) [address] Lymphocytes (Bld) [#/Vol] 2.3 10*3/uL Normal 1.0-4.3 [facility] Comment on above: Performed By: #### L [id number] #### Parts Sales Associate: STEVIE ELMORE ([phone]) [facility] [address] Lymphocytes/100 WBC (Bld) 32.6 % Normal 15.0-45.0 [facility] Comment on above: Performed By: #### L [id number] #### Parts Sales Associate: STEVIE ELMORE ([phone]) [facility] ([facility]) [address] MCH (RBC) [Entitic mass] 28.5 pg Normal 26.0-34.0 [facility] Comment on above: Performed By: #### L [id number] #### Parts Sales Associate: STEVIE ELMORE ([phone]) [facility] ([facility]) [address] MCHC 30.2 % Low 30.5-36.0 [facility] Comment on above: Performed By: #### L [id number] #### Parts Sales Associate: STEVIE ELMORE ([phone]) [facility] ([facility]) [address] MCV (RBC) [Entitic vol] 94.5 fL Normal 77.0-99.0 [facility] Comment on above: Performed By: #### L [id number] #### Parts Sales Associate: STEVIE ELMORE ([phone]) [facility] ([facility]) [address] Monocytes (Bld) [#/Vol] 0.8 10*3/uL Normal 0.0-0.9 [facility] Comment on above: Performed By: #### L [id number] #### Parts Sales Associate: STEVIE ELMORE ([phone]) [facility] ([facility]) [address] [place] [address] [place] Monocytes/100 WBC (Bld) 11.7 % Normal 5.0-13.0 [facility] Comment on above: Performed By: #### L [id number] #### Parts Sales Associate: STEVIE ELMORE ([phone]) [facility] ([facility]) [address] NEUTROPHILS ABSOLUTE 3.5 10*3/uL Normal 1.8-7.5 [facility] Comment on above: Performed By: #### L [id number] #### Parts Sales Associate: STEVIE ELMORE ([phone]) [facility] ([facility] [address] Neutrophils/100 WBC (Bld) 49.8 % Normal 38.0-82.0 [facility] Comment on above: Performed By: #### L [id number] #### Parts Sales Associate: STEVIE ELMORE ([phone]) [facility] ([facility]) [address] [place] [address] [place] NRBC 0.0 /100 WBCs Normal 0.0-2.0 [facility] Comment on above: Performed By: #### L [id number] #### Parts Sales Associate: STEVIE ELMORE ([phone]) [facility] ([facility]) [address] [place] [address] [place] Platelet mean volume (Bld) [Entitic vol] 8.5 fL Low 9.0-12.7 [facility] Comment on above: Performed By: #### L [id number] #### Parts Sales Associate: STEVIE ELMORE ([phone]) [facility] ([facility]) [address] Platelets (Bld) [#/Vol] 298 10*3/uL Normal 140-440 [facility] Comment on above: Performed By: #### L [id number] #### Parts Sales Associate: STEVIE ELMORE ([phone]) [facility] ([facility]) [address] RBC (Bld) [#/Vol] 2.91 10*6/uL Low 3.80-5.20 [facility] Comment on above: Performed By: #### L [id number] #### Parts Sales Associate: STEVIE ELMORE ([phone]) [facility] ([facility]) [address] WBC (Bld) [#/Vol] 6.9 10*3/uL Normal 3.6-10.7 [facility] Comment on above: Performed By: #### L [id number] #### Parts Sales Associate: STEVIE ELMORE ([phone]) [facility] ([facility]) [address] COMPREHENSIVE METABOLIC PANE Wade 03-08-2024 Albumin [Mass/Vol] 2.6 g/dL Low 3.5-5.0 [facility] Comment on above: Performed By: #### L [id number], LAB17 #### Parts Sales Associate: STEVIE ELMORE ([phone]) [facility] ([facility]) [address] ALP [Catalytic activity/Vol] 86 U/L Normal 38-126 [facility] Comment on above: Performed By: #### L AB103, LAB17 #### Parts Sales Associate: STEVIE ELMORE ([phone]) [facility] ([facility]) [address] ALT [Catalytic activity/Vol] 21 U/L Normal 0-34 [facility] Comment on above: Performed By: #### L AB103, LAB17 #### Parts Sales Associate: STEVIE ELMORE ([phone]) [facility] [place] ([facility]) [address] Anion gap [Moles/Vol] 1 mmol/L Low 3-13 [facility] Comment on above: Performed By: #### L AB103, LAB17 #### Parts Sales Associate: STEVIE ELMORE ([phone]) [facility] ([facility]) [address] AST [Catalytic activity/Vol] 24 U/L Normal 15-46 [facility] Comment on above: Performed By: #### L AB103, LAB17 #### Parts Sales Associate: STEVIE ELMORE ([phone]) [facility] (HL[facility]) [address] Bilirubin [Mass/Vol] 0.3 mg/dL Normal 0.2-1.3 [facility] Comment on above: Performed By: #### L AB103, LAB17 #### Parts Sales Associate: STEVIE ELMORE ([phone]) [facility] (HLAB) [address] Calcium [Mass/Vol] 8.4 mg/dL Normal 8.4-10.4 [facility] Comment on above: Performed By: #### L AB103, LAB17 #### Parts Sales Associate: STEVIE ELMORE ([phone]) [facility] ([facility]) [address] [place] [address] [place] Chloride [Moles/Vol] 108 mmol/L High 98-107 [facility] Comment on above: Performed By: #### L AB103, LAB17 #### Parts Sales Associate: STEVIE ELMORE ([phone]) [facility] ([facility]) [address] [place] [address] [place] CO2 [Moles/Vol] 29 mmol/L Normal 22-30 [facility] Comment on above: Performed By: #### L AB103, LAB17 #### Parts Sales Associate: STEVIE ELMORE ([phone]) [facility] ([facility]) [address] Creatinine [Mass/Vol] 1.24 mg/dL High 0.52-1.04 [facility] Comment on above: Performed By: #### L AB103, LAB17 #### Parts Sales Associate: STEVIE ELMORE ([phone]) [facility] ([facility]) [address] [place] [address] [place] GLOMERULAR FILTRATION RATE ML/MIN/1.73 SQ M.PREDICTED 48.1 mL/min/1.73m*2 Low >60.0 [facility] Comment on above: Result Comment: Calc ulation based on the Chronic Kidney Disease Epidemiology Collaboration (CKD-EPI) equation refit without adjustment for race Performed By: #### L AB103, LAB17 #### Parts Sales Associate: STEVIE ELMORE ([phone]) [facility] ([facility]) [address] Glucose [Mass/Vol] 75 mg/dL Normal 70-100 [facility] Comment on above: Performed By: #### L AB103, LAB17 #### Parts Sales Associate: STEVIE ELMORE ([phone]) [facility] ([facility]) [address] Potassium [Moles/Vol] 4.2 mmol/L Normal 3.5-5.1 [facility] Comment on above: Performed By: #### L AB103, LAB17 #### Parts Sales Associate: STEVIE ELMORE ([phone]) [facility] ([facility]) [address] [place] [address] [place] Protein [Mass/Vol] 5.2 g/dL Low 6.3-8.2 [facility] Comment on above: Performed By: #### L AB103, LAB17 #### Parts Sales Associate: STEVIE ELMORE ([phone]) [facility] ([facility]) [address] [place] [address] [place] Sodium [Moles/Vol] 138 mmol/L Normal 135-145 [facility] Comment on above: Performed By: #### L AB103, LAB17 #### Parts Sales Associate: STEVIE ELMORE ([phone]) [facility] ([facility]) [address] Urea nitrogen [Mass/Vol] 23 mg/dL High 7-17 [facility] Comment on above: Performed By: #### L AB103, LAB17 #### Parts Sales Associate: STEVIE ELMORE ([phone]) [facility] ([facility]) [address] Comprehensive metabolic 1998 panelon 03-08-2024 Albumin [Mass/Vol] 2.6 g/dL Low 3.5 - 5.0 g/dL [facility] ALP [Catalytic activity/Vol] 86 U/L 38 - 126 U/L [facility] ALT [Catalytic activity/Vol] 21 U/L 0 - 34 U/L [facility] Anion gap [Moles/Vol] 1 mmol/L Low 3 - 13 mmol/L [facility] AST [Catalytic activity/Vol] 24 U/L 15 - 46 U/L [facility] Bilirubin [Mass/Vol] 0.3 mg/dL 0.2 - 1 .3 mg/dL [facility] Calcium [Mass/Vol] 8.4 mg/dL 8.4 - 10. 4 mg/dL [facility] Chloride [Moles/Vol] 108 mmol/L High 98 - 10 7 mmol/L [facility] CO2 [Moles/Vol] 29 mmol/L 22 - 30 mmol/L [facility] Creatinine [Mass/Vol] 1.24 mg/dL High 0.52 - 1.04 mg/dL [facility] GFR/1.73 sq M.predicted MDRD (S/P/Bld) [Vol rate/Area] 48.1 mL/min/{1.73_m2} Low - PINF [facility] Comment on above: Calculation based on the Chronic Kidney Disease Epidemiology Collaboration (CKD-EPI) equation refit without adjustment for race Glucose [Mass/Vol] 75 mg/dL 70 - 100 mg/dL [facility] Interpretation and review of laboratory results Abnormal [facility] Potassium [Moles/Vol] 4.2 mmol/L 3.5 - 5.1 mmol/L [facility] Protein [Mass/Vol] 5.2 g/dL Low 6.3 - 8.2 g/dL [facility] Sodium [Moles/Vol] 138 mmol/L 135 - 145 mmol/L [facility] Urea nitrogen [Mass/Vol] 23 mg/dL High 7 - 17 mg/dL [facility] Laboratory - Chemistry and C hemistry - challengeon 03-08-2024 Glucose [Mass/Vol] 208 mg/dL High 70 - 100 mg/dL [facility] Glucose [Mass/Vol] 212 mg/dL High 70 - 100 mg/dL [facility] Glucose [Mass/Vol] 81 mg/dL 70 - 100 mg/dL [facility] Glucose [Mass/Vol] 74 mg/dL 70 - 100 mg/dL [facility] Laboratory - Microbiology an d Antimicrobial susceptibilityOrdered By: Herrera Macedo on 03-08-2024 Bacteria identified Cx Nom (U) 50,000-90,000 CFU/mL Enterococcus raffinosus Abnormal [facility] Comment on above: Susceptibility testi ng performed only upon request for cultures with multiple types of microorganisms below 100,000 CFU/ml. Bacteria identified Cx Nom (U) 10,000-50,000 CFU/mL Jose albicans Abnormal [facility] No Panel Informationon 03-08 Interpretation and review of laboratory results Abnormal [facility] Performed by: [facility], [address] [place] [address] CLIA ID: [id number] [facility] Interpretation and review of laboratory results Abnormal [facility] Performed by: [facility], [address] [place] [address] CLIA ID: [id number] [facility] Interpretation and review of laboratory results Normal [facility] Performed by: [facility], [address] [place] [address] CLIA ID: [id number] [facility] Interpretation and review of laboratory results Normal [facility] Performed by: [facility], [address] [place] [address] CLIA ID: [id number] [facility] Radiology Study observation (narrative) [facility] Radiology Study observation (narrative) [facility] Radiology Study observation (narrative) [facility] Radiology Study observation (narrative) [facility] BASIC METABOLIC PANELon 05-1 Anion gap [Moles/Vol] 5 mmol/L Normal 3-13 [facility] Comment on above: Performed By: #### L AB103, LAB17 #### Parts Sales Associate: STEVIE ELMORE ([phone]) [facility] ([facility]) [address] Calcium [Mass/Vol] 8.7 mg/dL Normal 8.4-10.4 [facility] Comment on above: Performed By: #### L AB103, LAB17 #### Parts Sales Associate: STEVIE ELMORE ([phone]) [facility] ([facility] [address] Chloride [Moles/Vol] 106 mmol/L Normal 98-107 [facility] Comment on above: Performed By: #### L AB103, LAB17 #### Parts Sales Associate: STEVIE ELMORE ([phone]) [facility] ([facility]) [address] CO2 [Moles/Vol] 27 mmol/L Normal 22-30 [facility] Comment on above: Performed By: #### L AB103, LAB17 #### Parts Sales Associate: STEVIE ELMORE ([phone]) [facility] ([facility]) [address] Creatinine [Mass/Vol] 1.12 mg/dL High 0.52-1.04 [facility] Comment on above: Performed By: #### L AB103, LAB17 #### Parts Sales Associate: STEVIE ELMORE ([phone]) [facility] ([facility]) [address] [place] [address] [place] GLOMERULAR FILTRATION RATE ML/MIN/1.73 SQ M.PREDICTED 54.3 mL/min/1.73m*2 Low >60.0 [facility] Comment on above: Result Comment: Calc ulation based on the Chronic Kidney Disease Epidemiology Collaboration (CKD-EPI) equation refit without adjustment for race Performed By: #### L AB103, LAB17 #### Parts Sales Associate: STEVIE ELMORE ([phone]) [facility] ([facility]) [address] Glucose [Mass/Vol] 75 mg/dL Normal 70-100 [facility] Comment on above: Performed By: #### L AB103, LAB17 #### Parts Sales Associate: STEVIE ELMORE ([phone]) [facility] ([facility]) [address] Potassium [Moles/Vol] 4.0 mmol/L Normal 3.5-5.1 [facility] Comment on above: Performed By: #### L AB103, LAB17 #### Parts Sales Associate: STEVIE ELMORE ([phone]) [facility] ([facility]) [address] Sodium [Moles/Vol] 137 mmol/L Normal 135-145 [facility] Comment on above: Performed By: #### L AB103, LAB17 #### Parts Sales Associate: STEVIE ELMORE ([phone]) [facility] ([facility]) [address] [place] [address] [place] Urea nitrogen [Mass/Vol] 21 mg/dL High 7-17 [facility] Comment on above: Performed By: #### L AB103, LAB17 #### Parts Sales Associate: STEVIE ELMORE ([phone]) [facility] ([facility]) [address] BLOOD CULTUREon 03-07-2024 Bacteria identified Cx Nom (Bld) BLOOD CULTURE Reference No growth at 5 days ORDER COMMENTS: Blood Collection Site: Right Forearm [ S = SUSCEPTIBLE R = RESISTANT I = INTERMEDIATE S-DD = Susceptible-dose dependent NS = Non-susceptible NO = No Interpretation ] Normal [facility] Comment on above: Performed By: #### L [id number] ####Parts Sales Associate: SILVIA FRENCH ([phone])[facility] ([facility])[address] [place] [address] Bacteria identified Cx Nom (Bld) BLOOD CULTURE Reference No growth at 5 days ORDER COMMENTS: Blood Collection Site: Right Wrist [ S = SUSCEPTIBLE R = RESISTANT I = INTERMEDIATE S-DD = Susceptible-dose dependent NS = Non-susceptible NO = No Interpretation ] Normal [facility] Comment on above: Performed By: #### L [id number] ####Parts Sales Associate: SILVIA FRENCH ([phone])[facility] ([facility] [place] [address] Basic metabolic 1998 panelon 03-07-2024 Anion gap [Moles/Vol] 5 mmol/L 3 - 13 mmol/L [facility] Calcium [Mass/Vol] 8.7 mg/dL 8.4 - 10. 4 mg/dL [facility] Chloride [Moles/Vol] 106 mmol/L 98 - 10 7 mmol/L [facility] CO2 [Moles/Vol] 27 mmol/L 22 - 30 mmol/L [facility] Creatinine [Mass/Vol] 1.12 mg/dL High 0.52 - 1.04 mg/dL [facility] GFR/1.73 sq M.predicted MDRD (S/P/Bld) [Vol rate/Area] 54.3 mL/min/{1.73_m2} Low - PINF [facility] Comment on above: Calculation based on the Chronic Kidney Disease Epidemiology Collaboration (CKD-EPI) equation refit without adjustment for race Glucose [Mass/Vol] 75 mg/dL 70 - 100 mg/dL [facility] Interpretation and review of laboratory results Abnormal [facility] Potassium [Moles/Vol] 4.0 mmol/L 3.5 - 5.1 mmol/L [facility] Sodium [Moles/Vol] 137 mmol/L 135 - 145 mmol/L [facility] Urea nitrogen [Mass/Vol] 21 mg/dL High 7 - 17 mg/dL [facility] CARECOORDon 03-07-[address] Talamantes's note, anticipated dc is for 03/08/24. Pt transport is set in WILL CALL with [employer] for 03/08/24. Normal [facility] CBC W Auto Differential pane l (Bld)on 03-07-2024 Basophils (Bld) [#/Vol] 0.1 10*3/uL 0.0 - 0.2 10*3/uL [facility] Basophils/100 WBC (Bld) 0.6 % 0.0 - 2.0 % [facility] Eosinophils (Bld) [#/Vol] 0.3 10*3/uL 0.0 - 0.5 10*3/uL [facility] Eosinophils/100 WBC (Bld) 3.6 % 0.0 - 6.0 % [facility] Erythrocyte distribution width (RBC) [Ratio] 16.8 % High 11.5 - 15.0 % [facility] Hematocrit (Bld) [Volume fraction] 26.5 % Low 35.0 - 47.0 % [facility] Hemoglobin (Bld) [Mass/Vol] 8.4 g/dL Low 11.7 - 16.0 g/dL [facility] Immature granulocytes (Bld) [#/Vol] 0.1 10*3/uL High NINF - 0.1 10*3/uL [facility] Immature granulocytes/100 WBC (Bld) 0.9 % 0.0 - 2.0 % [facility] Interpretation and review of laboratory results Abnormal [facility] Lymphocytes (Bld) [#/Vol] 2.1 10*3/uL 1.0 - 4.3 10*3/uL [facility] Lymphocytes/100 WBC (Bld) 26.3 % 15.0 - 45.0 % [facility] MCH (RBC) [Entitic mass] 29.0 pg 26.0 - 34.0 pg [facility] MCHC (RBC) [Mass/Vol] 31.7 % 30.5 - 36.0 % [facility] MCV (RBC) [Entitic vol] 91.4 fL 77.0 - 99.0 fL [facility] Monocytes (Bld) [#/Vol] 0.9 10*3/uL 0.0 - 0.9 10*3/uL [facility] Monocytes/100 WBC (Bld) 11.0 % 5.0 - 13.0 % [facility] Neutrophils (Bld) [#/Vol] 4.7 10*3/uL 1.8 - 7.5 10*3/uL [facility] Neutrophils/100 WBC (Bld) 57.6 % 38.0 - 82.0 % [facility] Nucleated RBC/100 WBC (Bld) [Ratio] 0.0 % [facility] Platelet mean volume (Bld) [Entitic vol] 8.4 fL Low 9.0 - 12.7 fL [facility] Platelets (Bld) [#/Vol] 312 10*3/uL 140 - 440 10*3/uL [facility] RBC (Bld) [#/Vol] 2.90 10*6/uL Low 3.80 - 5.2 0 10*6/uL [facility] WBC (Bld) [#/Vol] 8.1 10*3/uL 3.6 - 10.7 10*3/uL [facility] CBC WITH AUTO DIFFERENTIALon 03-07-2024 Basophils (Bld) [#/Vol] 0.1 10*3/uL Normal 0.0-0.2 [facility] Comment on above: Performed By: #### L AB103, LAB17 #### Parts Sales Associate: STEVIE ELMORE ([phone]) [facility] (SB[facility]) [address] Basophils/100 WBC (Bld) 0.6 % Normal 0.0-2.0 [facility] Comment on above: Performed By: #### L AB103, LAB17 #### Parts Sales Associate: STEVIE ELMORE ([phone]) [facility] [address] Eosinophils (Bld) [#/Vol] 0.3 10*3/uL Normal 0.0-0.5 [facility] Comment on above: Performed By: #### L AB103, LAB17 #### Parts Sales Associate: STEVIE ELMORE ([phone]) [facility] ([facility]) [address] Eosinophils/100 WBC (Bld) 3.6 % Normal 0.0-6.0 [facility] Comment on above: Performed By: #### L AB103, LAB17 #### Parts Sales Associate: STEVIE ELMORE ([phone]) [facility] (SB[facility]) [address] [place] [address] [place] Erythrocyte distribution width (RBC) [Ratio] 16.8 % High 11.5-15.0 [facility] Comment on above: Performed By: #### L AB103, LAB17 #### Parts Sales Associate: STEVIE PUTNAMEPRICO ([phone]) [facility] ([facility]) [address] Hematocrit (Bld) [Volume fraction] 26.5 % Low 35.0-47.0 [facility] Comment on above: Performed By: #### L AB103, LAB17 #### Parts Sales Associate: STEVIE MOYAMARCELOPERICO ([phone]) [facility] (HLAB) [address] Hemoglobin (Bld) [Mass/Vol] 8.4 g/dL Low 11.7-16.0 [facility] Comment on above: Performed By: #### L AB103, LAB17 #### Parts Sales Associate: STEVIE ELMORE ([phone]) [facility] ([facility]) [address] IMMATURE GRANS % 0.9 % Normal 0.0-2.0 [facility] Comment on above: Performed By: #### L MARK, LAB17 #### Parts Sales Associate: STEVIE ELMORE ([phone]) [facility] ([facility]) [address] IMMATURE GRANS ABSOLUTE 0.1 10*3/uL High <0.1 [facility] Comment on above: Performed By: #### L AB103, LAB17 #### Parts Sales Associate: STEVIE ELMORE ([phone]) [facility] ([facility]) [address] Lymphocytes (Bld) [#/Vol] 2.1 10*3/uL Normal 1.0-4.3 [facility] Comment on above: Performed By: #### L AB103, LAB17 #### Parts Sales Associate: STEVIE ELMORE ([phone]) [facility] ([facility]) [address] Lymphocytes/100 WBC (Bld) 26.3 % Normal 15.0-45.0 [facility] Comment on above: Performed By: #### L AB103, LAB17 #### Parts Sales Associate: STEVIE ELMORE ([phone]) [facility] [place] ([facility]) [address] MCH (RBC) [Entitic mass] 29.0 pg Normal 26.0-34.0 [facility] Comment on above: Performed By: #### L AB103, LAB17 #### Parts Sales Associate: STEVIE ELMORE ([phone]) [facility] [address] MCHC 31.7 % Normal 30.5-36.0 [facility] Comment on above: Performed By: #### L AB103, LAB17 #### Parts Sales Associate: STEVIE ELMORE ([id number]) [facility] [place] [facility] [address] MCV (RBC) [Entitic vol] 91.4 fL Normal 77.0-99.0 [facility] Comment on above: Performed By: #### L AB103, LAB17 #### Parts Sales Associate: STEVIE ELMORE ([id number]) [facility] [place] [facility] [address] Monocytes (Bld) [#/Vol] 0.9 10*3/uL Normal 0.0-0.9 [facility] Comment on above: Performed By: #### L AB103, LAB17 #### Parts Sales Associate: STEVIE ELMORE ([id number]) [facility] [place] [facility] [address] Monocytes/100 WBC (Bld) 11.0 % Normal 5.0-13.0 [facility] Comment on above: Performed By: #### L AB103, LAB17 #### Parts Sales Associate: STEVIE ELMORE ([id number]) [facility] [place] [facility] [address] NEUTROPHILS ABSOLUTE 4.7 10*3/uL Normal 1.8-7.5 [facility] Comment on above: Performed By: #### L AB103, LAB17 #### Parts Sales Associate: STEVIE ELMORE ([id number]) [facility] ([facility]) [address] Neutrophils/100 WBC (Bld) 57.6 % Normal 38.0-82.0 [facility] Comment on above: Performed By: #### L AB103, LAB17 #### Parts Sales Associate: STEVIE ELMORE ([id number]) [facility] ([facility]) [address] NRBC 0.0 /100 WBCs Normal 0.0-2.0 [facility] Comment on above: Performed By: #### L AB103, LAB17 #### Parts Sales Associate: STEVIE ELMORE ([id number]) [facility] ([facility]) [address] Platelet mean volume (Bld) [Entitic vol] 8.4 fL Low 9.0-12.7 [facility] Comment on above: Performed By: #### L AB103, LAB17 #### Parts Sales Associate: STEVIE ELMORE ([id number]) [facility] ([facility]) [address] [place] [address] [place] Platelets (Bld) [#/Vol] 312 10*3/uL Normal 140-440 [facility] Comment on above: Performed By: #### L AB103, LAB17 #### Parts Sales Associate: STEVIE ELMORE ([phone]) [facility] ([facility]) [address] [place] [address] [place] RBC (Bld) [#/Vol] 2.90 10*6/uL Low 3.80-5.20 [facility] Comment on above: Performed By: #### L AB103, LAB17 #### Parts Sales Associate: STEVIE ELMORE ([id number]) [facility] ([facility]) [address] [place], [place] [id number] [place] [address] WBC (Bld) [#/Vol] 8.1 10*3/uL Normal 3.6-10.7 [facility] Comment on above: Performed By: #### L AB103, LAB17 #### Parts Sales Associate: STEVIE ELMORE ([phone]) [facility] ([facility]) [address] [place] [id number] [place] [address] Laboratory - Chemistry and C hemistry - challengeon 03-07-2024 Glucose [Mass/Vol] 112 mg/dL High 70 - 100 mg/dL [facility] Glucose [Mass/Vol] 121 mg/dL High 70 - 100 mg/dL [facility] Glucose [Mass/Vol] 73 mg/dL 70 - 100 mg/dL [facility] Glucose [Mass/Vol] 86 mg/dL 70 - 100 mg/dL [facility] Glucose [Mass/Vol] 76 mg/dL 70 - 100 mg/dL [facility] No Panel Informationon 03-07 Interpretation and review of laboratory results Abnormal [facility] Performed by: [facility], [address] [place] [address] CLIA ID: [id number] [facility] Interpretation and review of laboratory results Abnormal [facility] Performed by: [facility], [address] [place] [address] CLIA ID: [id number] [facility] Interpretation and review of laboratory results Normal [facility] Performed by: [facility], [address] [place] [address] CLIA ID: [id number] [facility] Interpretation and review of laboratory results Normal [facility] Performed by: [facility], [address] [place] [address] CLIA ID: [id number] [facility] Interpretation and review of laboratory results Normal [facility] Performed by: [facility], [address] [place] [address] CLIA ID: [id number] [facility] Radiology Study observation (narrative) [facility] Radiology Study observation (narrative) [facility] Radiology Study observation (narrative) [facility] observation (narrative) Gloria escalona Radiology Study [facility] (narrative[facility] Note[facility] 03-07-2024 Progress Note Nutrition rescreen completed. Patient assigned a level 1 for nutrition care. Normal [facility] Progress Note OCCUPATIONAL THERAPY [facility] Name/MRN: Kimberly Patel ([id number]) Date: 03/07/2024 Chart review completed. Per previous documentation and confirmation from CM documentation, this patient [place] a [place] resident at a facility and does not require auth to return. This patient is a total assist at baseline for ADLs, mohamud lift for for transfers and non-ambulatory. Pt is at her functional baseline and has no skilled OT needs. Will complete current OT order at this time. Nilsa Vieira, OT [facility] Progress Note PHYSICAL THERAPY [facility] Name/MRN: Kimberly Patel ([id number]) Date: 03/07/2024 Chart review completed. Per previous documentation and confirmation from CM documentation, this patient is a [place] resident at a facility and does not require auth to return. This patient is a total assist at baseline for ADLs, mohamud lift for for transfers and non-ambulatory. Pt is at her functional baseline and has no skilled PT needs. Will complete current PT order at this time. Jaky Hayes, PT [facility] CARECOORDon 03-06-2024 [place] Care Managment Initi al Assessment Date: 03/06/2024 Patient Name: Kimberly Patel : 1955 Patient Information Source of Information: (recent assessment 02/22/24) Name/Contact Information: ALEXANDRO COTE [phone] DAUGHTER Cognition/Language: Confused at baseline Permission given to speak with patient commissary representative/caregive r as indicated: Yes Confirmation of Payer with patient/family: Yes [facility] [place]: No Confirmation of Primary Care Physician: Confirmed PCP Name: DR. QUICK Seen in last 2 years?: Yes Primary Caregiver: Other (Comment) If assistance needed, confirmed caregiver ready, willing and able to care for patient at discharge: Yes Confirmed with: STAFF AT [facility] Living Arrangements Current Residence: ([facility]) Number of Floors 1 Number of Entry Steps: (LEVEL ENTRY) Bed/Bath Levels: Both first floor Facility: Skilled Nursing/[facility] Care Facility Name: [facility] Plan to Return: Yes Lives with: Other (Comment) (ECF) Support Systems: Children, Comments (Other) (ECF STAFF) Activities of Daily Living Ambulation: Total Care Bathing/Dressing: Total Care Elimination/Continence/ Toileting: Total Care Feeding: asst .set up Who Assists with Activities of Daily Living: ECF STAFF Instrumental Activities of Daily Living Prescription Coverage: Yes Pharmacy Used: [facility] STAFF Medication Management: Medication dispenser Who assists with medication securing and setup?: [facility] Transportation/Shopping : Assistance Provider Transportation/Shopping Assistance Provider Name: PAYOR PROVIDED TRANSPORT Transportation Mode: Payer provided transport service Needs Assistance with Transportation at Discharge: Yes Meal Preparation: Assistance Provider Meal Prep Assistance Provider Name: [facility] Laundry/Cleaning: Assistance Provider Laundry/Cleaning Assistance Provider Name: [facility] Finances/Bill Paying: Assistance Provider Finances/Bill Payer Assistance Provider Name: DAUGHTER Communication: Independent, Emergency Call System Types of Care Services/Equipment Utilized Care Services: Dialysis Type: NA Durable Medical Equipment: Mohamud Lift, Hospital Bed, oxygen, Patient's Goal/Discharge Plan Patient expects to be discharged to: RETURN TO [facility] Discharge Planning Actions: Continue to follow Patient's Choice Rights and [employer] and Collaborative Relationships Disclosed as Indicated for Post-Acute Care: NA Interdisciplinary Team Engagement: Social Work Referral for: Additional Information: Inpatient status from [facility] with altered mental status. Recent hospitalization for UTI and is receiving iv invanz at [facility] via picc line. ID consulted. Repeat blood culture in am, bs ac and hs with ss coverage, daily labs, us of right upper ext negative for DVT. Anny call and speak with nurse Jenna at [facility] patient is mohamud lift at facility, is able to feed herself, takes pills in applesauce, is diabetic and ss coverage. She believes patient requires oxygen at the facility. [place] and Jenna believes has been there for about a year. Tentative discharge plan is to return to facility when medically stable. Anny speak with patient's daughter Alexandro and she is agreeable with [facility] medically [facility]. . Vanessa Vu RN Normal [facility] COMPLETE URINALYSISon 2023 BACTERIA (#/HPF) IN URINE Few Abnormal Negative [facility] Comment on above: Order Comment: Do no t cancel, repeat ordered on purpose Straight cath Performed By: #### L [id number] #### Parts Sales Associate: STEVIE ELMORE ([phone]) [facility] [address] BILIRUBIN, TOTAL PRESENCE IN URINE Negative Normal Negative [facility] Comment on above: Order Comment: Do no t cancel, repeat ordered on purpose Straight cath Performed By: #### L [id number] #### Parts Sales Associate: STEVIE ELMORE ([phone]) [facility] ([facility]) [address] Clarity (U) Clear Normal Clear [facility] Comment on above: Order Comment: Do no t cancel, repeat ordered on purpose Straight cath Performed By: #### L [id number] #### Parts Sales Associate: STEVIE ELMORE ([phone]) [facility] ([facility]) [address] Color (U) Yellow Normal Lt. Yellow [facility] Comment on above: Order Comment: Do no t cancel, repeat ordered on purpose Straight cath Performed By: #### L [id number] #### Parts Sales Associate: STEVIE ELMORE ([phone]) [facility] [address] GLUCOSE (MG/DL) IN URINE Normal Normal Normal (<70) [facility] Comment on above: Order Comment: Do no t cancel, repeat ordered on purpose Straight cath Performed By: #### L [id number] #### Parts Sales Associate: STEVIE ELMORE ([phone]) [facility] [address] HEMOGLOBIN PRESENCE IN URINE Negative Normal Negative [facility] Comment on above: Order Comment: Do no t cancel, repeat ordered on purpose Straight cath Performed By: #### L [id number] #### Parts Sales Associate: STEVIE ELMORE ([phone]) [facility] ([facility]) [address] Ketones Ql (U) Negative Normal Negative [facility] Comment on above: Order Comment: Do no t cancel, repeat ordered on purpose Straight cath Performed By: #### L [id number] #### Parts Sales Associate: STEVIE ELMORE ([id number]) [facility] ([facility]) [address] LEUKOCYTE ESTERASE PRESENCE IN URINE BY TEST STRIP 75 Ha/uL Abnormal Negative [facility] Comment on above: Order Comment: Do no t cancel, repeat ordered on purpose Straight cath Performed By: #### L [id number] #### Parts Sales Associate: STEVIE ELMORE ([id number]) [facility] ([facility]) [address] [place] [address] [place] MUCUS (#/LPF) IN URINE SEDIMENT Few Normal Negative [facility] Comment on above: Order Comment: Do no t cancel, repeat ordered on purpose Straight cath Performed By: #### L [id number] #### Parts Sales Associate: STEVIE ELMORE ([id number]) [facility] ([facility]) [address] NITRITE PRESENCE IN URINE Negative Normal Negative [facility] Comment on above: Order Comment: Do no t cancel, repeat ordered on purpose Straight cath Performed By: #### L [id number] #### Parts Sales Associate: STEVIE ELMORE ([id number]) [facility] ([facility]) [address] [place] [address] [place] pH (U) 5.5 [pH] Normal 5.0-8.0 [facility] Comment on above: Order Comment: Do no t cancel, repeat ordered on purpose Straight cath Performed By: #### L [id number] #### Parts Sales Associate: STEVIE ELMORE ([phone]) [facility] ([facility]) [address] Protein (U) [Mass/Vol] 10 mg/dL Abnormal Negative [facility] Comment on above: Order Comment: Do no t cancel, repeat ordered on purpose Straight cath Performed By: #### L [id number] #### Parts Sales Associate: STEVIE ELMORE ([id number]) [facility] [address] RBC (#/HPF) IN URINE SEDIMENT 3-5 Abnormal 0-2 [facility] Comment on above: Order Comment: Do no t cancel, repeat ordered on purpose Straight cath Performed By: #### L [id number] #### Parts Sales Associate: STEVIE ELMORE ([phone]) [facility] [address] Specific gravity (U) [Rel density] 1.016 Normal 1.005-1.030 [facility] Comment on above: Order Comment: Do no t cancel, repeat ordered on purpose Straight cath Performed By: #### L [id number] #### Parts Sales Associate: STEVIE ELMORE ([phone]) [facility] ([facility]) [address] SQUAMOUS EPITHELIAL CELLS (#/HPF) IN URINE SEDIMENT 6-10 Abnormal 3-5 [facility] Comment on above: Order Comment: Do no t cancel, repeat ordered on purpose Straight cath Performed By: #### L [id number] #### Parts Sales Associate: STEVIE ELMORE ([phone]) [facility] [address] [place] [address] [place] UROBILINOGEN (MG/DL) IN URINE Normal Normal Normal (0-1) [facility] Comment on above: Order Comment: Do no t cancel, repeat ordered on purpose Straight cath Performed By: #### L [id number] #### Parts Sales Associate: STEVIE ELMORE ([id number]) [facility] ([facility]) [address] [place] [address] [place] WBC (LEUKOCYTE) (#/HPF) IN URINE SEDIMENT 26-50 Abnormal 0-5 [facility] Comment on above: Order Comment: Do no t cancel, repeat ordered on purpose Straight cath Performed By: #### L [id number] #### Parts Sales Associate: STEVIE ELMORE ([id number]) [facility] [address] HEAD WO IV CONTRASTon CT HEAD WO IV CONTRAST Patient Name: KIMBERLY MATA : 1955 Exam Date/Time: 03/06/2024 16:10 Procedure: CT HEAD WO IV CONTRAST Ordering Provider: TALAMANTES JONATHAN Reason For Exam: Mental status change, unknown cause CT HEAD WITHOUT CONTRAST CLINICAL HISTORY: Mental status change, unknown cause COMPARISON: 02/21/2024 TECHNIQUE: Helical CT of the brain without contrast. Dose reduction was employed with automated exposure control. FINDINGS: Limitations: Streak artifacts throughout the posterior fossa and inferior cerebral hemispheres, limiting assessment at these sites. Acute Findings: No evidence of an acute infarct or intracranial hemorrhage. Chronic Changes: Scattered patchy foci of white matter hypoattenuation, most likely mild chronic microvascular ischemic changes. Ventricles and sulci: Mild generalized brain parenchymal volume loss. No hydrocephalus. Other: Fluid opacification the mastoid air cells bilaterally, likely mastoid effusions. Persistent sphenoid sinus opacification bilaterally. IMPRESSION: Limited study. No acute intracranial abnormalities or significant change from the prior study. Report Dictated on Electronically Signed By: Frankie Patel MD Electronically Signed Date/Time: 03/06/2024 4:28 PM EDT AMS Normal [facility] CT Head WO contraston 2023 Limited study. No acute intracranial abnormalities or significant change from the prior study. Report Dictated on Electronically Signed By: Frankie Patel MD Electronically Signed Date/Time: 03/06/2024 4:28 PM EDT [facility] Patient Name: KIMBERLY PATEL : 1955 Exam Date/Time: 03/06/2024 16:10 Procedure: CT HEAD WO IV CONTRAST Ordering Provider: TALAMANTES JONATHAN Reason For Exam: Mental status change, unknown cause CT HEAD WITHOUT CONTRAST CLINICAL HISTORY: Mental status change, unknown cause COMPARISON: 02/21/2024 TECHNIQUE: Helical CT of the brain without contrast. Dose reduction was employed with automated exposure control. FINDINGS: Limitations: Streak artifacts throughout the posterior fossa and inferior cerebral hemispheres, limiting assessment at these sites. Acute Findings: No evidence of an acute infarct or intracranial hemorrhage. Chronic Changes: Scattered patchy foci of white matter hypoattenuation, most likely mild chronic microvascular ischemic changes. Ventricles and sulci: Mild generalized brain parenchymal volume loss. No hydrocephalus. Other: Fluid opacification the mastoid air cells bilaterally, likely mastoid effusions. Persistent sphenoid sinus opacification bilaterally. [facility] Frankie Patel M D - 03/06/2024 Patient Name: [facility]EL [facility] 1955 [id number] Exam Date/Time: 03/06/2024 16:10 Procedure: CT HEAD WO IV CONTRAST Ordering Provider: TALAMANTES JONATHAN Reason For Exam: Mental status change, unknown cause CT HEAD WITHOUT CONTRAST CLINICAL HISTORY: Mental status change, unknown cause COMPARISON: 02/21/2024 TECHNIQUE: Helical CT of the brain without contrast. Dose reduction was employed with automated exposure control. FINDINGS: Limitations: Streak artifacts throughout the posterior fossa and inferior cerebral hemispheres, limiting assessment at these sites. Acute Findings: No evidence of an acute infarct or intracranial hemorrhage. Chronic Changes: Scattered patchy foci of white matter hypoattenuation, most likely mild chronic microvascular ischemic changes. Ventricles and sulci: Mild generalized brain parenchymal volume loss. No hydrocephalus. Other: Fluid opacification the mastoid air cells bilaterally, likely mastoid effusions. Persistent sphenoid sinus opacification bilaterally. IMPRESSION: Limited study. No acute intracranial abnormalities or significant change from the prior study. Report Dictated on Electronically Signed By: Frankie Patel MD Electronically Signed Date/Time: 03/06/2024 4:28 PM EDT [facility] Radiology Study observation (narrative) [facility] Head WO contrastOrdered B y: Frankie Patel on 03-06-2024 [facility] [employer] Work Phone: Consulton 03-06-2024 Consult [facility] - Infectious Diseases Attending Consult Note Reason for Consult: Confusion, on ertapenem for ESBL E coli bacteremia. History of Present Illness: 68 y/o female was admitted on 03/05/24 from an ECF due to increased confusion, hallucinations and not feeling well; on presentation in ED, she mentioned that she felt fine but sometimes her consciousness waxes and wanes, she denied physically seeing or hearing anyone, her temp was 99.7 F, UA showed 51-100 WBC, cbc showed wbc of 8.7k, Cr 1.23, CXR did not show any consolidation or pulmonary edema, ertapenem was continued. She was seen, found her alert, laying on bed, thought that she was still at the nursing facility, followed commands appropriately, wearing 4L O2 (baseline), appeared non-toxic. She was recently admitted at [facility] from 02/20- 02/28/24 due to severe sepsis due to ESBL E. Coli UTI/bacteremia and was discharged on ertapenem for 2 weeks through 03/08/24. She has h/o chronic resp failure (4 L NC), poorly controlled DM and obesity disorder. She was examined; notes, labs and imaging were reviewed and treatment plan was discussed. Past Medical History: Past Medical History: Diagnosis Date CHF (congestive heart failure) ([facility]) COPD (chronic obstructive pulmonary disease) ([facility]) Diabetes mellitus ([facility]) Past Surgical History: Past Surgical History: Procedure Laterality Date CHOLECYSTECTOMY COLONOSCOPY throat biopsy Current Medications: Current Facility-Administered Medications Medication Dose Route Frequency Provider Last Rate Last Admin acetaminophen (Tylenol) tablet 650 mg 650 mg Oral q6h PRN Eboni Fletcher MD Or acetaminophen (Tylenol) suppository 650 mg 650 mg Rectal q6h PRN Eboni Fletcher MD alteplase (Cathflo Activase) 2 mg in sterile water 1 mL injection 2 mg IntraCATHeter PRN Eboni Fletcher MD aspirin EC tablet 81 mg 81 mg Oral Daily Eboni Fletcher MD 81 mg at 03/06/24 1152 atorvastatin (Lipitor) tablet 40 mg 40 mg Oral Daily Eboni Fletcher MD 40 mg at 03/06/24 1008 cyanocobalamin (Vitamin B-12) tablet 1,000 mcg 1,000 mcg Oral Daily Eboni Fletcher MD 1,000 mcg at 03/06/24 1153 dextrose 5 % infusion 100 mL/hr IntraVENous PRN Eboni Fletcher MD dextrose 50 % solution 12.5 g 12.5 g IntraVENous PRN Eboni Fletcher MD enoxaparin (Lovenox) syringe 40 mg 40 mg SubCUTAneous Daily Eboni Fletcher MD 40 mg at 03/06/24 1008 ertapenem (INVanz) 1,000 mg in sodium chloride 0.9 % 50 mL IVPB Mini-Bag Plus 1,000 mg IntraVENous q24h Eboni Fletcher MD 100 mL/hr at 03/06/24 1404 1,000 mg at 03/06/24 1404 famotidine (Pepcid) tablet 20 mg 20 mg Oral Daily Eboni Fletcher MD 20 mg at 03/06/24 1008 glucagon (human recombinant) injection 1 mg 1 mg IntraMUSCular PRN Eboni Fletcher MD glucose oral gel 15 g 15 g Oral PRN Eboni Fletcher MD hydrOXYzine pamoate (Vistaril) capsule 25 mg 25 mg Oral q8h PRN Eboni Fletcher MD insulin glargine (Lantus) injection 50 Units 50 Units SubCUTAneous BID Eboni Fletcher MD 50 Units at 03/06/24 1152 Insulin Lispro (Humalog) injection 0-6 Units 0-6 Units SubCUTAneous TID Eboni Fletcher MD 1 Units at 03/06/24 1155 And Insulin Lispro (Humalog) injection 0-6 Units 0-6 Units SubCUTAneous Nightly Eboni Fletcher MD Insulin Lispro (Humalog) injection 0-6 Units 0-6 Units SubCUTAneous TID Eboni Fletcher MD And Insulin Lispro (Humalog) injection 0-6 Units 0-6 Units SubCUTAneous Nightly Eboni Fletcher MD isosorbide mononitrate ER (Imdur) 24 hr tablet 30 mg 30 mg Oral Daily Eboni Fletcher MD 30 mg at 03/06/24 1008 linaGLIPtin (Tradjenta) tablet 5 mg 5 mg Oral Daily Eboni Fletcher MD 5 mg at 03/06/24 1008 methenamine hippurate (Hiprex) tablet 1 g 1 g Oral BID Eboni Fletcher MD 1 g at 03/06/24 1152 metoprolol succinate XL (Toprol-XL) 24 hr tablet 25 mg 25 mg Oral Daily Eboni Fletcher MD 25 mg at 03/06/24 1008 mometasone-formoterol (Dulera 200) 200-5 MCG/ACT inhaler 2 puff 2 puff Inhalation BID Eboni Fletcher MD 2 puff at 03/06/24 1153 naloxone (Narcan) injection 0.4 mg 0.4 mg IntraVENous q5 min PRN Eboni Fletcher MD oxyCODONE-acetaminophen (Percocet) 5-325 MG per tablet 1 tablet 1 tablet Oral q6h PRN Eboni Fletcher MD polyethylene glycol (PEG) 3350 (Miralax) packet 17 g 17 g Oral Daily PRN Eboni Fletcher MD ranolazine (Ranexa) 12 hr tablet 1,000 mg 1,000 mg Oral BID Eboni Fletcher MD 1,000 mg at 03/06/24 1008 senna-docusate sodium (Senokot-S) 8.6-50 MG tablet 1 tablet 1 tablet Oral BID Eboni Fletcher MD 1 tablet at 03/06/24 1008 venlafaxine XR (Effexor XR) 24 hr capsule 75 mg 75 mg Oral Daily Eboni Fletcher MD 75 mg at 03/06/24 1008 Allergies: Allergies Allergen Reactions Dulaglutide Empagliflozin Hydromorphone Metformin Morphine Ondansetron Penicillins Social History: Social History Socioeconomic History Marital status: Spouse name: Not on file Number of children: Not on file Years of education: N (more content not included)... Normal [facility] Laboratory - Chemistry and C hemistry - challengeon 03-06-2024 Glucose [Mass/Vol] 165 mg/dL High 70 - 100 mg/dL [facility] Glucose [Mass/Vol] 126 mg/dL High 70 - 100 mg/dL [facility] Glucose [Mass/Vol] 147 mg/dL High 70 - 100 mg/dL [facility] Glucose [Mass/Vol] 160 mg/dL High 70 - 100 mg/dL [facility] Laboratory - Chemistry and C hemistry - challengeOrdered By: Sejal Gr on 03-06-2024 Glucose [Mass/Vol] 160 mg/dL [facility] No Panel Informationon 03-06 Interpretation and review of laboratory results Abnormal [facility], [address] [facility] [address] CLIA ID: [id number] [facility] Interpretation and review of laboratory results Abnormal [facility] Performed by: [facility] [facility], [address] [facility] [address] CLIA ID: [id number] [facility] No evidence of acute deep vein thrombosis in the right upper extremity. No evidence of acute superficial vein thrombosis in the right upper extremity. Contralateral imaging of the left subclavian vein was normal. Right Upper Venous No evidence of acute DVT and acute SVT. Internal Jugular Vein: Patent, normal phasicity, spontaneous, compressible. Innominate Vein: Not visualized. Subclavian Vein: Patent, normal phasicity, spontaneous, normal augmentation, compressible and access line present. Axillary Vein: Patent, normal phasicity, spontaneous, normal augmentation, compressible and access line present. Brachial Vein: Patent, normal phasicity, spontaneous, compressible and access line present. Radial Vein: Patent, compressible. Ulnar Vein: Patent, compressible. Cephalic Vein (Upper Arm): Patent, compressible. Cephalic Vein (Forearm): Patent, compressible. Basilic Vein (Upper Arm): Patent, compressible. Left Upper Venous For comparison purposes, the left subclavian vein was investigated. This vein appeared to show normal color filling and Doppler interrogation showed phasic, spontaneous and somewhat pulsatile flow. 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 During the study longitudinal and transverse views were obtained. Pulsed wave doppler was performed. The exam was performed with the patient in the supine position. Overall the study quality was limited. Study was technically difficult due to: body habitus and patient uncooperative. CV CPACS Interpretation and review of laboratory results Abnormal [facility] Performed by: [facility] [address] [facility] [address] CLIA ID: [id number] [facility] Interpretation and review of laboratory results Abnormal [facility] Performed by: [facility], [address] [place] [address] CLIA ID: [id number] [facility] Radiology Study observation (narrative) [facility] Radiology Study observation (narrative) [facility] Radiology Study observation (narrative) [facility] Radiology Study observation (narrative) [facility] No Panel InformationOrdered By: Sejal Gr on 03-06-2024 Interpretation and review of laboratory results Normal [facility] Radiology Study observation (narrative) [facility] Urinalysis complete panel (U )Ordered By: Hema Fernandez on 03-06-2024 Bacteria LM.HPF (Urine sed) [#/Area] Few Abnormal Negative /HPF [facility] Bilirubin Ql (U) Negative Negative mg/dL [facility] Clarity (U) Clear Clear [facility] Color (U) Yellow Lt. Yellow [facility] Epithelial cells.squamous LM.HPF (Urine sed) [#/Area] 6-10 Abnormal [facility] h Glucose Ql (U) Normal Normal (<70) mg/dL [facility] Hemoglobin Ql (U) Negative Negative mg/dL [facility] Interpretation and review of laboratory results Abnormal [facility] Ketones (U) [Mass/Vol] Negative Negat rhonda mg/dL [facility] Leukocyte esterase Test strip Ql (U) 75 Abnormal Negative Ha/uL [facility] Mucus LM.HPF (Urine sed) [#/Area] Few Negative /LPF [facility] Nitrite Ql (U) Negative Negative [facility] th pH (U) 5.5 [pH] 5.0 - 8.0 pH [facility] Protein (U) [Mass/Vol] 10 mg/dL Abnormal Negative [facility] RBC LM.HPF (Urine sed) [#/Area] 3-5 Abnormal [facility] Specific gravity (U) [Rel density] 1.016 1.005 - 1.030 [facility] Urobilinogen (U) [Mass/Vol] Normal Normal (0-1) mg/dL [facility] WBC LM.HPF (Urine sed) [#/Area] 26-50 Abnormal [facility] CBC W Auto Differential pane l (Bld)on 03-05-2024 Basophils (Bld) [#/Vol] 0.1 10*3/uL 0.0 - 0.2 10*3/uL [facility] Basophils/100 WBC (Bld) 0.7 % 0.0 - 2.0 % [facility] Eosinophils (Bld) [#/Vol] 0.3 10*3/uL 0.0 - 0.5 10*3/uL [facility] Eosinophils/100 WBC (Bld) 3.8 % 0.0 - 6.0 % [facility] Erythrocyte distribution width (RBC) [Ratio] 16.5 % High 11.5 - 15.0 % [facility] Hematocrit (Bld) [Volume fraction] 29.7 % Low 35.0 - 47.0 % [facility] Hemoglobin (Bld) [Mass/Vol] 9.3 g/dL Low 11.7 - 16.0 g/dL [facility] Immature granulocytes (Bld) [#/Vol] 0.2 10*3/uL High NINF - 0.1 10*3/uL [facility] Immature granulocytes/100 WBC (Bld) 2.2 % High 0.0 - 2.0 % [facility] Interpretation and review of laboratory results Abnormal [facility] Lymphocytes (Bld) [#/Vol] 1.7 10*3/uL 1.0 - 4.3 10*3/uL [facility] Lymphocytes/100 WBC (Bld) 20.0 % 15.0 - 45.0 % [facility] MCH (RBC) [Entitic mass] 29.2 pg 26.0 - 34.0 pg [facility] MCHC (RBC) [Mass/Vol] 31.3 % 30.5 - 36.0 % [facility] MCV (RBC) [Entitic vol] 93.1 fL 77.0 - 99.0 fL [facility] Monocytes (Bld) [#/Vol] 0.7 10*3/uL 0.0 - 0.9 10*3/uL [facility] Monocytes/100 WBC (Bld) 8.1 % 5.0 - 13.0 % [facility] Neutrophils (Bld) [#/Vol] 5.7 10*3/uL 1.8 - 7.5 10*3/uL [facility] Neutrophils/100 WBC (Bld) 65.2 % 38.0 - 82.0 % [facility] Nucleated RBC/100 WBC (Bld) [Ratio] 0.0 % [facility] Platelet mean volume (Bld) [Entitic vol] 8.4 fL Low 9.0 - 12.7 fL [facility] Platelets (Bld) [#/Vol] 342 10*3/uL 140 - 440 10*3/uL [facility] RBC (Bld) [#/Vol] 3.19 10*6/uL Low 3.80 - 5.2 0 10*6/uL [facility] WBC (Bld) [#/Vol] 8.7 10*3/uL 3.6 - 10.7 10*3/uL [facility] CBC WITH AUTO DIFFERENTIALon 03-05-2024 Basophils (Bld) [#/Vol] 0.1 10*3/uL Normal 0.0-0.2 [facility] Comment on above: Performed By: #### L AB103, LAB17 #### Parts Sales Associate: STEVIE ELMORE ([phone]) [facility] [address] Basophils/100 WBC (Bld) 0.7 % Normal 0.0-2.0 [facility] Comment on above: Performed By: #### L AB103, LAB17 #### Parts Sales Associate: STEVIE ELMORE ([phone]) [facility] [place] ([facility]) [address] Eosinophils (Bld) [#/Vol] 0.3 10*3/uL Normal 0.0-0.5 [facility] Comment on above: Performed By: #### L AB103, LAB17 #### Parts Sales Associate: STEVIE ELMORE ([phone]) [facility] [place] ([facility]) [address] Eosinophils/100 WBC (Bld) 3.8 % Normal 0.0-6.0 [facility] Comment on above: Performed By: #### L AB103, LAB17 #### Parts Sales Associate: STEVIE ELMORE ([phone]) [facility] ([facility]) [address] [place] [address] [place] Erythrocyte distribution width (RBC) [Ratio] 16.5 % High 11.5-15.0 [facility] Comment on above: Performed By: #### L 103, LAB17 #### Parts Sales Associate: STEVIE PUTNAMPERICO ([phone]) [facility] ([facility] [address] Hematocrit (Bld) [Volume fraction] 29.7 % Low 35.0-47.0 [facility] Comment on above: Performed By: #### L 103, LAB17 #### Parts Sales Associate: STEVIE MOYAFAHAD ([phone]) [facility] [address] Hemoglobin (Bld) [Mass/Vol] 9.3 g/dL Low 11.7-16.0 [facility] Comment on above: Performed By: #### Misti FLORES, LAB17 #### Parts Sales Associate: STEVIE ELMORE ([phone]) [facility] [address] IMMATURE GRANS % 2.2 % High 0.0-2.0 [facility] Comment on above: Performed By: #### Misti FLORES, LAB17 #### Parts Sales Associate: STEVIE ELMORE ([phone]) [facility] [address] IMMATURE GRANS ABSOLUTE 0.2 10*3/uL High <0.1 [facility] Comment on above: Performed By: #### L 103, LAB17 #### Parts Sales Associate: STEVIE PUTNAMPERICO ([phone]) [facility] ([facility]) [address] Lymphocytes (Bld) [#/Vol] 1.7 10*3/uL Normal 1.0-4.3 [facility] Comment on above: Performed By: #### L AB, LAB17 #### Parts Sales Associate: STEVIE ELMORE ([phone]) [facility] ([facility]) [address] [place] [address] [place] Lymphocytes/100 WBC (Bld) 20.0 % Normal 15.0-45.0 [facility] Comment on above: Performed By: #### L AB103, LAB17 #### Parts Sales Associate: STEVIE ELMORE ([phone]) [facility] [place] ([facility]) [address] MCH (RBC) [Entitic mass] 29.2 pg Normal 26.0-34.0 [facility] Comment on above: Performed By: #### L AB103, LAB17 #### Parts Sales Associate: STEVIE ELMORE ([phone]) [facility] [address] MCHC 31.3 % Normal 30.5-36.0 [facility] Comment on above: Performed By: #### L AB103, LAB17 #### Parts Sales Associate: STEVIE ELMORE ([phone]) [facility] ([facility] [address] MCV (RBC) [Entitic vol] 93.1 fL Normal 77.0-99.0 [facility] Comment on above: Performed By: #### L AB103, LAB17 #### Parts Sales Associate: STEVIE ELMORE ([phone]) [facility] ([facility]) [address] Monocytes (Bld) [#/Vol] 0.7 10*3/uL Normal 0.0-0.9 [facility] Comment on above: Performed By: #### L AB103, LAB17 #### Parts Sales Associate: STEVIE ELMORE ([phone]) [facility] ([facility] [address] Monocytes/100 WBC (Bld) 8.1 % Normal 5.0-13.0 [facility] Comment on above: Performed By: #### L AB103, LAB17 #### Parts Sales Associate: STEVIE ELMORE ([phone]) [facility] ([facility] [address] NEUTROPHILS ABSOLUTE 5.7 10*3/uL Normal 1.8-7.5 [facility] Comment on above: Performed By: #### L AB103, LAB17 #### Parts Sales Associate: STEVIE ELMORE ([phone]) [facility] [place] ([facility]) [address] Neutrophils/100 WBC (Bld) 65.2 % Normal 38.0-82.0 [facility] Comment on above: Performed By: #### L AB103, LAB17 #### Parts Sales Associate: STEVIE ELMORE ([phone]) [facility] ([facility] [address] NRBC 0.0 /100 WBCs Normal 0.0-2.0 [facility] Comment on above: Performed By: #### L AB103, LAB17 #### Parts Sales Associate: STEVIE ELMORE ([phone]) [facility] ([facility] [address] Platelet mean volume (Bld) [Entitic vol] 8.4 fL Low 9.0-12.7 [facility] Comment on above: Performed By: #### L AB103, LAB17 #### Parts Sales Associate: STEVIE ELMORE ([phone]) [facility] [place] ([facility] [address] [place] [address] [place] Platelets (Bld) [#/Vol] 342 10*3/uL Normal 140-440 [facility] Comment on above: Performed By: #### L AB103, LAB17 #### Parts Sales Associate: STEVIE ELMORE ([phone]) [facility] ([facility]) [address] [place] [address] [place] RBC (Bld) [#/Vol] 3.19 10*6/uL Low 3.80-5.20 [facility] Comment on above: Performed By: #### L AB103, LAB17 #### Parts Sales Associate: STEVIE ELMORE ([phone]) [facility] [place] ([facility] [address] WBC (Bld) [#/Vol] 8.7 10*3/uL Normal 3.6-10.7 [facility] Comment on above: Performed By: #### L AB103, LAB17 #### Parts Sales Associate: STEVIE ELMORE ([phone]) [facility] ([facility]) [address] COMPLETE URINALYSISon 2023 BACTERIA (#/HPF) IN URINE Few Abnormal Negative [facility] Comment on above: Performed By: #### L AB103, LAB17 #### Parts Sales Associate: STEVIE ELMORE ([phone]) [facility] ([facility]) [address] BILIRUBIN, TOTAL PRESENCE IN URINE Negative Normal Negative [facility] Comment on above: Performed By: #### L AB103, LAB17 #### Parts Sales Associate: STEVIE ELMORE ([phone]) [facility] ([facility]) [address] Clarity (U) Turbid Abnormal Clear [facility] Comment on above: Performed By: #### L AB103, LAB17 #### Parts Sales Associate: STEVIE ELMORE ([phone]) [facility] ([facility]) [address] Color (U) Yellow Normal Lt. Yellow [facility] Comment on above: Performed By: #### L AB103, LAB17 #### Parts Sales Associate: STEVIE ELMORE ([phone]) [facility] ([facility]) [address] [place] [address] [place] GLUCOSE (MG/DL) IN URINE Normal Normal Normal (<70) [facility] Comment on above: Performed By: #### L AB103, LAB17 #### Parts Sales Associate: STEVIE ELMORE ([id number]) [facility] ([facility]) [address] [place] [address] [place] HEMOGLOBIN PRESENCE IN URINE Negative Normal Negative [facility] Comment on above: Performed By: #### L AB103, LAB17 #### Parts Sales Associate: STEVIE ELMORE ([phone]) [facility] ([facility]) [address] Ketones Ql (U) Negative Normal Negative [facility] Comment on above: Performed By: #### L AB103, LAB17 #### Parts Sales Associate: STEVIE ELMORE ([id number]) [facility] ([facility]) [address] LEUKOCYTE ESTERASE PRESENCE IN URINE BY TEST STRIP 500 Ha/uL Abnormal Negative [facility] Comment on above: Performed By: #### L AB103, LAB17 #### Parts Sales Associate: STEVIE ELMORE ([phone]) [facility] [address] MUCUS (#/LPF) IN URINE SEDIMENT Few Normal Negative [facility] Comment on above: Performed By: #### L AB103, LAB17 #### Parts Sales Associate: STEVIE ELMORE ([id number]) [facility] [address] NITRITE PRESENCE IN URINE Negative Normal Negative [facility] Comment on above: Performed By: #### L AB103, LAB17 #### Parts Sales Associate: STEVIE ELMORE ([phone]) [facility] [address] pH (U) 5.0 [pH] Normal 5.0-8.0 [facility] Comment on above: Performed By: #### L AB103, LAB17 #### Parts Sales Associate: STEVIE ELMORE ([phone]) [facility] [address] Protein (U) [Mass/Vol] 20 mg/dL Abnormal Negative [facility] Comment on above: Performed By: #### L AB103, LAB17 #### Parts Sales Associate: STEVIE ELMORE ([id number]) [facility] [address] RBC (#/HPF) IN URINE SEDIMENT 3-5 Abnormal 0-2 [facility] Comment on above: Performed By: #### L AB103, LAB17 #### Parts Sales Associate: STEVIE ELMORE ([phone]) [facility] ([facility] [address] Specific gravity (U) [Rel density] 1.020 Normal 1.005-1.030 [facility] Comment on above: Performed By: #### L AB103, LAB17 #### Parts Sales Associate: STEVIE ELMORE ([phone]) [facility] ([facility]) [address] SQUAMOUS EPITHELIAL CELLS (#/HPF) IN URINE SEDIMENT 11-25 Abnormal 3-5 [facility] Comment on above: Performed By: #### L AB103, LAB17 #### Parts Sales Associate: STEVIE ELMORE ([phone]) [facility] ([facility]) [address] UROBILINOGEN (MG/DL) IN URINE Normal Normal Normal (0-1) [facility] Comment on above: Performed By: #### L AB103, LAB17 #### Parts Sales Associate: STEVIE ELMORE ([phone]) [facility] ([facility]) [address] WBC (LEUKOCYTE) (#/HPF) IN URINE SEDIMENT 51-100 Abnormal 0-5 [facility] Comment on above: Performed By: #### L AB103, LAB17 #### Parts Sales Associate: STEVIE ELMORE ([phone]) [facility] ([facility]) [address] COMPREHENSIVE METABOLIC PANE Wade 03-05-2024 Albumin [Mass/Vol] 3.1 g/dL Low 3.5-5.0 [facility] Comment on above: Performed By: #### L AB17 ####Parts Sales Associate: STEVIE ELMORE ([phone])[facility] [place] (SB[facility])[address] ALP [Catalytic activity/Vol] 95 U/L Normal 38-126 [facility] Comment on above: Performed By: #### L AB17 ####Parts Sales Associate: STEVIE ELMORE ([phone])[facility] [place] ([facility])[address] [place] [address] [place] ALT [Catalytic activity/Vol] 22 U/L Normal 0-34 [facility] Comment on above: Performed By: #### L AB17 ####Parts Sales Associate: STEVIE ELMORE ([phone])[facility] [place] ([facility])[address] Anion gap [Moles/Vol] 7 mmol/L Normal 3-13 [facility] Comment on above: Performed By: #### L AB17 ####Parts Sales Associate: STEVIE ELMORE ([phone])[facility] [place] ([facility])[address] AST [Catalytic activity/Vol] 21 U/L Normal 15-46 [facility] Comment on above: Performed By: #### L AB17 ####Parts Sales Associate: STEVIE ELMORE ([phone])[facility] [place] ([facility])[address] Bilirubin [Mass/Vol] 0.4 mg/dL Normal 0.2-1.3 [facility] Comment on above: Performed By: #### L AB17 ####Parts Sales Associate: STEVIE ELMORE ([phone])[facility] [place] ([facility])[address] [place] [address] [place] Calcium [Mass/Vol] 9.1 mg/dL Normal 8.4-10.4 [facility] Comment on above: Performed By: #### L AB17 ####Parts Sales Associate: STEVIE ELMORE ([phone])[facility] [place] ([facility])[address] [place] [address] [place] Chloride [Moles/Vol] 104 mmol/L Normal 98-107 [facility] Comment on above: Performed By: #### L AB17 ####Parts Sales Associate: STEVIE ELMORE ([phone])[facility] [place] ([facility])[address] CO2 [Moles/Vol] 25 mmol/L Normal 22-30 [facility] Comment on above: Performed By: #### L AB17 ####Parts Sales Associate: STEVIE ELMORE ([phone])[facility] [place] ([facility])[address] Creatinine [Mass/Vol] 1.23 mg/dL High 0.52-1.04 [facility] Comment on above: Performed By: #### L AB17 ####Parts Sales Associate: STEVIE ELMORE ([phone])[facility] [place] ([facility])[address] GLOMERULAR FILTRATION RATE ML/MIN/1.73 SQ M.PREDICTED 48.6 mL/min/1.73m*2 Low >60.0 [facility] Comment on above: Result Comment: Calc ulation based on the Chronic Kidney Disease Epidemiology Collaboration (CKD-EPI) equation refit without adjustment for race Performed By: #### L AB17 ####Parts Sales Associate: STEVIE ELMORE ([phone])[facility] [place] ([facility])[address] Glucose [Mass/Vol] 144 mg/dL High 70-100 [facility] Comment on above: Performed By: #### L AB17 ####Parts Sales Associate: STEVIE ELMORE ([phone])[facility] [place] ([facility])[address] Potassium [Moles/Vol] 4.7 mmol/L Normal 3.5-5.1 [facility] Comment on above: Performed By: #### L AB17 ####Parts Sales Associate: STEVIE ELMORE ([phone])[facility] ([facility])[address] Protein [Mass/Vol] 5.7 g/dL Low 6.3-8.2 [facility] Comment on above: Performed By: #### L AB17 ####Parts Sales Associate: STEVIE PUTNAMPERICO ([phone])[facility] ([facility])[address] Sodium [Moles/Vol] 137 mmol/L Normal 135-145 [facility] Comment on above: Performed By: #### L AB17 ####Parts Sales Associate: STEVIE MOYAFAHAD ([phone])[facility] ([facility])[address] Urea nitrogen [Mass/Vol] 24 mg/dL High 7-17 [facility] Comment on above: Performed By: #### L AB17 ####Parts Sales Associate: STEVIE MOYAFAHAD ([phone])[facility] ([facility])[address] Comprehensive metabolic 1998 panelon 03-05-2024 Albumin [Mass/Vol] 3.1 g/dL Low 3.5 - 5.0 g/dL [facility] ALP [Catalytic activity/Vol] 95 U/L 38 - 126 U/L [facility] ALT [Catalytic activity/Vol] 22 U/L 0 - 34 U/L [facility] Anion gap [Moles/Vol] 7 mmol/L 3 - 13 mmol/L [facility] AST [Catalytic activity/Vol] 21 U/L 15 - 46 U/L [facility] Bilirubin [Mass/Vol] 0.4 mg/dL 0.2 - 1 .3 mg/dL [facility] Calcium [Mass/Vol] 9.1 mg/dL 8.4 - 10. 4 mg/dL [facility] Chloride [Moles/Vol] 104 mmol/L 98 - 10 7 mmol/L [facility] CO2 [Moles/Vol] 25 mmol/L 22 - 30 mmol/L [facility] Creatinine [Mass/Vol] 1.23 mg/dL High 0.52 - 1.04 mg/dL [facility] GFR/1.73 sq M.predicted MDRD (S/P/Bld) [Vol rate/Area] 48.6 mL/min/{1.73_m2} Low - PINF [facility] Comment on above: Calculation based on the Chronic Kidney Disease Epidemiology Collaboration (CKD-EPI) equation refit without adjustment for race Glucose [Mass/Vol] 144 mg/dL High 70 - 100 mg/dL [facility] Interpretation and review of laboratory results Abnormal [facility] Potassium [Moles/Vol] 4.7 mmol/L 3.5 - 5.1 mmol/L [facility] Protein [Mass/Vol] 5.7 g/dL Low 6.3 - 8.2 g/dL [facility] Sodium [Moles/Vol] 137 mmol/L 135 - 145 mmol/L [facility] Urea nitrogen [Mass/Vol] 24 mg/dL High 7 - 17 mg/dL [facility] ED Nursing Noteon 03-05-2024 ED Nursing Note [employer] called for USIV and labs Marjorie Stephens RN 03/05/241941 Normal [facility] ED Nursing Note Pt arrived via EMS [facility] for complaints of increased confusion and hallucinations at dinner. When EMS arrived, pt was A&O x4. During transport, pt had intermittent confusion in EMS. Pt was seen a week ago in [facility] and was being treated for UTI, which she has completed 1st ATB and is on 2nd one. Pt has PICC line in [facility], but entire arm is painful to touch. Normal [facility] ED Provider Noteon ED Provider Note EMERGENCY DEPARTMENT ENCOUNTER Pt Name: Kimberly Patel Birthdate 1955 Date of evaluation: 03/05/2024 ED Provider: JANIE CORTEZ MD CHIEF COMPLAINT Chief Complaint Patient presents with ? Altered Mental Status PER FACILITY, PT STARTED WITH CONFUSION AND HALLUCINATIONS AT [place] FOR UTI PRESENT HISTORY OF PRESENT ILLNESS (Location/Symptom, Timing/Onset, Context/Setting, Quality, Duration, Modifying Factors, Severity) Note limiting factors. I wore appropriate PPE for the entirety of this encounter. HPI Kimberly Patel is a 68 y.o. who presents to the emergency department with chief complaint of altered mental status. Patient reportedly had hallucinations at dinner tonight. For EMS they report that the patient was GCS 15 oriented x 4 on their arrival but then had an episode of confusion and route and then was oriented again prior to arrival to the emergency department. Patient states that she does not have any significant symptoms but states she overall just does not feel well. Denies any chest pain shortness of breath. Has some chronic abdominal pain that she states is no worse than normal. Denies any fever. Patient has a PICC line in the right upper extremity. She denies any significant pain from it. Nursing Notes were reviewed. Limitations to history: None Outside historians: None REVIEW OF SYSTEMS Review of Systems Pertinent positives and negatives as per HPI. PAST MEDICAL HISTORY Past Medical History: Diagnosis Date ? CHF (congestive heart failure) ([facility]) ? COPD (chronic obstructive pulmonary disease) ([facility]) ? Diabetes mellitus ([facility]) SURGICAL HISTORY Past Surgical History: Procedure Laterality Date ? CHOLECYSTECTOMY ? COLONOSCOPY throat biopsy CURRENT MEDICATIONS Previous Medications ACETAMINOPHEN (TYLENOL) 325 MG TABLET Take 650 mg by mouth every 6 hours as needed for mild pain (1-3) or fever. ACETYLCYSTEINE (N-ACETYL CYSTEINE) 600 MG CAPSULE CAPSULE Take 600 mg by mouth in the morning and 600 mg in the evening. ALBUTEROL (2.5 MG/3ML) 0.083% NEBULIZER SOLUTION Take 2.5 mg by nebulization 4 times daily as needed for wheezing or shortness of breath. ALBUTEROL 108 (90 BASE) MCG/ACT INHALER Inhale 2 puffs every 4 hours as needed for wheezing. ASPIRIN 81 MG EC TABLET Take 81 mg by mouth daily. ATORVASTATIN (LIPITOR) 40 MG TABLET Take 40 mg by mouth daily. BISACODYL (DULCOLAX) 5 MG EC TABLET Take 5 mg by mouth Daily as needed for constipation. Do not crush, chew, or split. BISACODYL (FLEET BISACODYL) 10 MG/30ML ENEMA Insert 10 mg into the rectum Daily as needed for constipation. BUDESONIDE-FORMOTEROL (SYMBICORT) 160-4.5 MCG/ACT INHALER Inhale 2 puffs in the morning and 2 puffs in the evening. Rinse mouth with water after use to reduce aftertaste and incidence of candidiasis. Do not swallow.. CALCIUM CARBONATE (TUMS) 500 MG CHEWABLE TABLET Chew 500 mg 2 times daily. CLOBETASOL (TEMOVATE) 0.05 % CREAM Apply topically 2 times daily. CYANOCOBALAMIN (VITAMIN B-12) 1000 MCG TABLET Take 1 tablet (1,000 mcg) by mouth daily. DOXYCYCLINE (MONODOX) 100 MG CAPSULE Take 1 capsule (100 mg) by mouth 2 times daily. Take with at least 8 ounces (large glass) of water, do not lie down for 30 minutes after Do not start before March 08, 2024. DUPILUMAB (DUPIXENT) 300 MG/2ML INJECTION Inject 300 mg under the skin every 14 (fourteen) days. ERGOCALCIFEROL (VITAMIN D-2) 1.25 MG (93239 UT) CAPSULE Take 1.25 mg by mouth 1 (one) time per week. Every ERTAPENEM SODIUM IJ Inject 1 g as directed Every 24 hours. FAMOTIDINE (PEPCID) 40 MG TABLET Take 40 mg by mouth daily. FUROSEMIDE (LASIX) 40 MG TABLET Take 40 mg by mouth in the morning and 40 mg in the evening. GUAIFENESIN (ROBITUSSIN) 100 MG/5ML SYRUP Take 200 mg by mouth 3 times daily as needed for cough. HYDROXYZINE HCL (ATARAX) 25 MG TABLET Take 25 mg by mouth every 8 hours as needed for itching. INSULIN GLARGINE (LANTUS) 100 UNIT/ML INJECTION Inject 50 Units under the skin 2 times daily. ISOSORBIDE MONONITRATE ER (IMDUR) 30 MG 24 HR TABLET Take 30 mg by mouth daily. Do not crush or chew. LINAGLIPTIN (TRADJENTA) 5 MG TABLET Take 5 mg by mouth daily. METHENAMINE HIPPURATE (HIPREX) 1 G TABLET Take 1 g by mouth 2 times daily. METOPROLOL SUCCINATE XL (TOPROL-XL) 25 MG 24 HR TABLET Take 25 mg by mouth daily. Do not crush or chew. OXYCODONE-ACETAMINOPHEN (PERCOCET) 5-325 MG TABLET Take 1 tablet by mouth every 6 hours as needed for severe pain (7-10). POLYETHYLENE GLYCOL, PEG, 3350 (MIRALAX) 17 G PACKET Take 17 g by mouth Once. PROMETHAZINE (PHENERGAN) 25 MG TABLET Take 25 mg by mouth every 6 hours as needed for nausea or vomiting. RANOLAZINE (RANEXA) 1000 MG 12 HR TABLET Take 1,000 mg by mouth 2 times daily. Do not crush, chew, or split. SENNA-DOCUSATE SODIUM (SENOKOT-S) 8.6-50 MG TABLET Take 1 tablet by mouth 2 times daily. VENLAFAXINE XR (EFFEXOR XR) 75 MG 24 (more content not included)... Normal [facility] LACTIC ACID WITH REFLEXon Lactate [Moles/Vol] 1.1 mmol/L Normal 0.7-2.0 [facility] Comment on above: Performed By: #### L [id number] ####Parts Sales Associate: STEVIE ELMORE ([phone])[facility] ([facility])[address] [place] [address] Laboratory - Chemistry and C hemistry - challengeon 03-05-2024 Lactate [Moles/Vol] 1.1 mmol/L 0.7 - 2. 0 mmol/L [facility] No Panel Informationon 03-05 Interpretation and review of laboratory results Normal [facility] URINE CULTUREon 03-05-2024 Bacteria identified Cx Nom (U) URINE CULTURE (A) Reference ENTEROCOCCUS RAFFINOSUS 50,000-90,000 CFU/mL Enterococcus raffinosus (A) Susceptibility testing performed only upon request for cultures with multiple types of microorganisms below 100,000 CFU/ml. JOSE ALBICANS 10,000-50,000 CFU/mL Jose albicans (A) [ S = SUSCEPTIBLE R = RESISTANT I = INTERMEDIATE S-DD = Susceptible-dose dependent NS = Non-susceptible NO = No Interpretation ] Normal [facility] Comment on above: Performed By: #### L [id number] ####Parts Sales Associate: SILVIA FRENCH ([id number])[facility] ([facility])[address] [place] [address] Urinalysis complete panel (U )Ordered By: Eliz Amador on 03-05-2024 Bacteria LM.HPF (Urine sed) [#/Area] Few Abnormal Negative /HPF [facility] Bilirubin Ql (U) Negative Negative mg/dL [facility] Clarity (U) Turbid Abnormal Clear [facility] Color (U) Yellow Lt. Yellow [facility] Epithelial cells.squamous LM.HPF (Urine sed) [#/Area] 11-25 Abnormal [facility] Glucose Ql (U) Normal Normal (<70) mg/dL [facility] Hemoglobin Ql (U) Negative Negative mg/dL [facility] Interpretation and review of laboratory results Abnormal [facility] Ketones (U) [Mass/Vol] Negative Negat rhonda mg/dL [facility] Leukocyte esterase Test strip Ql (U) 500 Abnormal Negative Ha/uL [facility] Mucus LM.HPF (Urine sed) [#/Area] Few Negative /LPF [facility] Nitrite Ql (U) Negative Negative [facility] th pH (U) 5.0 [pH] 5.0 - 8.0 pH [facility] Protein (U) [Mass/Vol] 20 mg/dL Abnormal Negative [facility] RBC LM.HPF (Urine sed) [#/Area] 3-5 Abnormal [facility] Specific gravity (U) [Rel density] 1.020 1.005 - 1.030 [facility] Urobilinogen (U) [Mass/Vol] Normal Normal (0-1) mg/dL [facility] WBC LM.HPF (Urine sed) [#/Area] 51-100 Abnormal [facility] XR Chest Single viewon 03-05 FINDINGS/IMPRESSION: The patient is somewhat rotated 1. Lines/Tubes/Devices/David dware: Right PICC with catheter tip overlying the SVC 2. Lungs: No consolidation or pulmonary edema. 3. Pleura: No pneumothorax or large pleural effusions. 4. Heart and mediastinum: Normal cardiomediastinal contours. Report Dictated on Electronically Signed By: Milad Kirkpatrick MD Electronically Signed Date/Time: 03/05/2024 8:25 PM EDT [facility] [employer] [facility]IMBERLY [facility] 1955 [id number] Exam Date/Time: 03/05/2024 20:11 Procedure: XR CHEST 1 VIEW Ordering Provider: CORTEZ MARK Reason For Exam: ALTERED MENTAL STATUS EXAM TYPE: RADIOLOGIC EXAMINATION, CHEST, SINGLE VIEW FRONTAL (CXR SINGLE VIEW) EXAM DATE AND TIME: 03/05/2024 8:11 PM EDT INDICATION: Altered mental status COMPARISON: None available. TECHNIQUE: A single frontal view of the thorax was obtained and reviewed. Special views: None. [facility] [employer] [facility] Milad Kirkpatrick MD - 03/05/2024 Patient Name: KIMBERLY PATEL : 1955 Exam Date/Time: 03/05/2024 20:11 Procedure: XR CHEST 1 VIEW Ordering Provider: CORTEZ MARK Reason For Exam: ALTERED MENTAL STATUS EXAM TYPE: RADIOLOGIC EXAMINATION, CHEST, SINGLE VIEW FRONTAL (CXR SINGLE VIEW) EXAM DATE AND TIME: 03/05/2024 8:11 PM EDT INDICATION: Altered mental status COMPARISON: None available. TECHNIQUE: A single frontal view of the thorax was obtained and reviewed. Special views: None. IMPRESSION: FINDINGS/IMPRESSION: The patient is somewhat rotated 1. Lines/Tubes/Devices/David dware: Right PICC with catheter tip overlying the SVC 2. Lungs: No consolidation or pulmonary edema. 3. Pleura: No pneumothorax or large pleural effusions. 4. Heart and mediastinum: Normal cardiomediastinal contours. Report Dictated on Electronically Signed By: Milad Kirkpatrick MD Electronically Signed Date/Time: 03/05/2024 8:25 PM EDT [facility] Radiology Study observation (narrative) [facility] XR Chest Single viewOrdered By: Milad Kirkpatrick on 03-05-2024 [facility] Work Phone: 36on 02-29-2024 36 Patient discharged t [facility] on 02/28/24. OPAT faxed to facility. Called and spoke ti nurse Lozano to review orders, labs and follow up blood cultures that are needed. Normal [facility] 36on 02-28-2024 36 Patient remain hospitalized. Follow up blood cultures only awaiting discharge plans. Normal [facility] Bacteria identified Cx Nom ( Bld)on 02-28-2024 Interpretation and review of laboratory results Normal [facility]ECOORDon 02-28-2024 [facility] Next Site of Care Admission Date: 02/21/2024 10:26 AM Patient Name: KIMBERLY PATEL Location: [facility] 2E CARDIAC PCU/[facility] [id number] Date of : 1955 - Placement Information - Referral Type:Skilled Nursing/SNF - Return Referral ID:[id number] Provider Name:[facility] Address 1:[address] [place] [address] Address 2: City:[place] Selection Factors:Returning to Facility State:[place] [facility] Dc back to [facility] this evening at 6:00. Anibal messaged the facility with dc time. Discussed dc time with patients daughter Alexandro. She did have a question about patients iron and a chat message was sent to Dr. Mendoza. Ambulance form completed. [facility] Discharge med list transmitted to return back to [facility] via [facility] per [facility] request. Normal [facility] Sent ABX order to return back to [facility] via [facility] per [facility] request. Await review and response regarding ability to accept. [facility] notified. Normal [facility] CBC W Auto Differential pane l (Bld)Ordered By: Lindsay Mcintosh on 02-28-2024 Erythrocyte distribution width (RBC) [Ratio] 15.2 % High 11.5 - 15.0 % [facility] Hematocrit (Bld) [Volume fraction] 25.0 % Low 35.0 - 47.0 % [facility] Hemoglobin (Bld) [Mass/Vol] 7.6 g/dL Low 11.7 - 16.0 g/dL [facility] Interpretation and review of laboratory results Abnormal [facility] MCH (RBC) [Entitic mass] 28.7 pg 26.0 - 34.0 pg [facility] MCHC (RBC) [Mass/Vol] 30.4 % Low 30.5 - 36.0 % [facility] MCV (RBC) [Entitic vol] 94.3 fL 77.0 - 99.0 fL [facility] Platelet mean volume (Bld) [Entitic vol] 8.3 fL Low 9.0 - 12.7 fL [facility] Platelets (Bld) [#/Vol] 293 10*3/uL 140 - 440 10*3/uL [facility] RBC (Bld) [#/Vol] 2.65 10*6/uL Low 3.80 - 5.2 0 10*6/uL [facility] WBC (Bld) [#/Vol] 7.7 10*3/uL 3.6 - 10.7 10*3/uL [facility] CBC WITH AUTO DIFFERENTIALon 02-28-2024 Erythrocyte distribution width (RBC) [Ratio] 15.2 % High 11.5-15.0 [facility] Comment on above: Performed By: #### L AB103, LAB17 #### Parts Sales Associate: STEVIE ELMORE ([id number]) [facility] [address] Hematocrit (Bld) [Volume fraction] 25.0 % Low 35.0-47.0 [facility] Comment on above: Performed By: #### L AB103, LAB17 #### Parts Sales Associate: STEVIE ELMORE ([id number]) [facility] ([facility]) [address] Hemoglobin (Bld) [Mass/Vol] 7.6 g/dL Low 11.7-16.0 [facility] Comment on above: Performed By: #### L AB103, LAB17 #### Parts Sales Associate: STEVIE ELMORE ([phone]) [facility] ([facility]) [address] MCH (RBC) [Entitic mass] 28.7 pg Normal 26.0-34.0 [facility] Comment on above: Performed By: #### L AB103, LAB17 #### Parts Sales Associate: STEVIE ELMORE ([id number]) [facility] ([facility]) [address] MCHC 30.4 % Low 30.5-36.0 [facility] Comment on above: Performed By: #### L AB103, LAB17 #### Parts Sales Associate: STEVIE ELMORE ([id number]) [facility] ([facility]) [address] MCV (RBC) [Entitic vol] 94.3 fL Normal 77.0-99.0 [facility] Comment on above: Performed By: #### L AB103, LAB17 #### Parts Sales Associate: STEVIE ELMORE ([id number]) [facility] ([facility]) [address] Platelet mean volume (Bld) [Entitic vol] 8.3 fL Low 9.0-12.7 [facility] Comment on above: Performed By: #### L AB103, LAB17 #### Parts Sales Associate: STEVIE ELMORE ([id number]) [facility] ([facility]) [address] Platelets (Bld) [#/Vol] 293 10*3/uL Normal 140-440 [facility] Comment on above: Performed By: #### L AB103, LAB17 #### Parts Sales Associate: STEVIE ELMORE ([id number]) [facility] ([facility]) [address] RBC (Bld) [#/Vol] 2.65 10*6/uL Low 3.80-5.20 [facility] Comment on above: Performed By: #### L AB103, LAB17 #### Parts Sales Associate: STEVIE ELMORE ([phone]) [facility] ([facility]) [address] WBC (Bld) [#/Vol] 7.7 10*3/uL Normal 3.6-10.7 [facility] Comment on above: Performed By: #### L AB103, LAB17 #### Parts Sales Associate: STEVIE ELMORE ([id number]) [facility] ([facility]) [address] COMPREHENSIVE METABOLIC PANE Wade 02-28-2024 Albumin [Mass/Vol] 2.6 g/dL Low 3.5-5.0 [facility] Comment on above: Performed By: #### L AB103, LAB17 #### Parts Sales Associate: STEVIE ELMORE ([id number]) [facility] ([facility]) [address] ALP [Catalytic activity/Vol] 62 U/L Normal 38-126 [facility] Comment on above: Performed By: #### L AB103, LAB17 #### Parts Sales Associate: STEVIE ELMORE ([id number]) [facility] ([facility]) [address] ALT [Catalytic activity/Vol] 20 U/L Normal 0-34 [facility] Comment on above: Performed By: #### L AB103, LAB17 #### Parts Sales Associate: STEVIE ELMORE ([id number]) [facility] [address] Anion gap [Moles/Vol] 2 mmol/L Low 3-13 [facility] Comment on above: Performed By: #### L AB103, LAB17 #### Parts Sales Associate: STEVIE ELMORE ([id number]) [facility] ([facility]) [address] AST [Catalytic activity/Vol] 23 U/L Normal 15-46 [facility] Comment on above: Performed By: #### L AB103, LAB17 #### Parts Sales Associate: STEVIE ELMORE ([id number]) [facility] ([facility]) [address] Bilirubin [Mass/Vol] 0.2 mg/dL Normal 0.2-1.3 [facility] Comment on above: Performed By: #### L AB103, LAB17 #### Parts Sales Associate: STEVIE ELMORE ([id number]) [facility] (HLAB) [address] Calcium [Mass/Vol] 8.1 mg/dL Low 8.4-10.4 [facility] Comment on above: Performed By: #### L AB103, LAB17 #### Parts Sales Associate: STEVIE ELMORE ([phone]) [facility] ([facility]) [address] [place] [address] [place] Chloride [Moles/Vol] 108 mmol/L High 98-107 [facility] Comment on above: Performed By: #### L AB103, LAB17 #### Parts Sales Associate: STEVIE ELMORE ([id number]) [facility] ([facility]) [address] [place] [address] [place] CO2 [Moles/Vol] 30 mmol/L Normal 22-30 [facility] Comment on above: Performed By: #### L AB103, LAB17 #### Parts Sales Associate: STEVIE ELMORE ([id number]) [facility] ([facility]) [address] Creatinine [Mass/Vol] 1.34 mg/dL High 0.52-1.04 [facility] Comment on above: Performed By: #### L AB103, LAB17 #### Parts Sales Associate: STEVIE ELMORE ([id number]) [facility] ([facility]) [address] [place] [address] [place] GLOMERULAR FILTRATION RATE ML/MIN/1.73 SQ M.PREDICTED 43.8 mL/min/1.73m*2 Low >60.0 [facility] Comment on above: Result Comment: Calc ulation based on the Chronic Kidney Disease Epidemiology Collaboration (CKD-EPI) equation refit without adjustment for race Performed By: #### L AB103, LAB17 #### Parts Sales Associate: STEVIE ELMORE ([phone]) [facility] ([facility]) [address] [place] [address] [place] Glucose [Mass/Vol] 120 mg/dL High 70-100 [facility] Comment on above: Performed By: #### L AB103, LAB17 #### Parts Sales Associate: STEVIE ELMORE ([id number]) [facility] ([facility]) [address] Potassium [Moles/Vol] 4.7 mmol/L Normal 3.5-5.1 [facility] Comment on above: Performed By: #### L AB103, LAB17 #### Parts Sales Associate: STEVIE ELMORE ([id number]) [facility] ([facility]) [address] [place] [address] [place] Protein [Mass/Vol] 5.0 g/dL Low 6.3-8.2 [facility] Comment on above: Performed By: #### L AB103, LAB17 #### Parts Sales Associate: STEVIE ELMORE ([id number]) [facility] ([facility]) [address] [place] [address] [place] Sodium [Moles/Vol] 139 mmol/L Normal 135-145 [facility] Comment on above: Performed By: #### L AB103, LAB17 #### Parts Sales Associate: STEVIE ELMORE ([id number]) [facility] ([facility]) [address] Urea nitrogen [Mass/Vol] 25 mg/dL High 7-17 [facility] Comment on above: Performed By: #### L AB103, LAB17 #### Parts Sales Associate: STEVIE ELMORE ([id number]) [facility] ([facility]) [address] Comprehensive metabolic 1998 panelon 02-28-2024 Albumin [Mass/Vol] 2.6 g/dL Low 3.5 - 5.0 g/dL [facility] ALP [Catalytic activity/Vol] 62 U/L 38 - 126 U/L [facility] ALT [Catalytic activity/Vol] 20 U/L 0 - 34 U/L [facility] Anion gap [Moles/Vol] 2 mmol/L Low 3 - 13 mmol/L [facility] AST [Catalytic activity/Vol] 23 U/L 15 - 46 U/L [facility] Bilirubin [Mass/Vol] 0.2 mg/dL 0.2 - 1 .3 mg/dL [facility] Calcium [Mass/Vol] 8.1 mg/dL Low 8.4 - 10. 4 mg/dL [facility] Chloride [Moles/Vol] 108 mmol/L High 98 - 10 7 mmol/L [facility] CO2 [Moles/Vol] 30 mmol/L 22 - 30 mmol/L [facility] Creatinine [Mass/Vol] 1.34 mg/dL High 0.52 - 1.04 mg/dL [facility] GFR/1.73 sq M.predicted MDRD (S/P/Bld) [Vol rate/Area] 43.8 mL/min/{1.73_m2} Low - PINF [facility] th Glucose [Mass/Vol] 120 mg/dL High 70 - 100 mg/dL [facility] Interpretation and review of laboratory results Abnormal [facility] Potassium [Moles/Vol] 4.7 mmol/L 3.5 - 5.1 mmol/L [facility] Protein [Mass/Vol] 5.0 g/dL Low 6.3 - 8.2 g/dL [facility] Sodium [Moles/Vol] 139 mmol/L 135 - 145 mmol/L [facility] Urea nitrogen [Mass/Vol] 25 mg/dL High 7 - 17 mg/dL [facility] Laboratory - Chemistry and C hemistry - challengeon 02-28-2024 Glucose [Mass/Vol] 107 mg/dL High 70 - 100 mg/dL [facility] Glucose [Mass/Vol] 114 mg/dL High 70 - 100 mg/dL [facility] Glucose [Mass/Vol] 128 mg/dL High 70 - 100 mg/dL [facility] Laboratory - Hematology and Cell countson 02-28-2024 Anisocytosis Ql (Bld) Slight Abnormal (none) [facility] Band form neutrophils (Bld) [#/Vol] 0.3 10*3/uL High NINF - 0.0 10*3/uL [facility] Band form neutrophils/100 WBC (Bld) 4 % High NINF - 0 % [facility] Basophils (Bld) [#/Vol] 0.1 10*3/uL 0.0 - 0.2 10*3/uL [facility] Basophils/100 WBC (Bld) 1 % 0 - 2 % [facility] Eosinophils (Bld) [#/Vol] 0.2 10*3/uL 0.0 - 0.5 10*3/uL [facility] Eosinophils/100 WBC (Bld) 3 % 0 - 6 % [facility] Hypochromia Ql (Bld) Slight Abnormal (none) [facility] Lymphocytes (Bld) [#/Vol] 1.3 10*3/uL 1.0 - 4.3 10*3/uL [facility] Lymphocytes/100 WBC (Bld) 17 % 15 - 45 % [facility] Metamyelocytes (Bld) [#/Vol] 0.2 10*3/uL High NINF - 0.0 10*3/uL [facility] Metamyelocytes/100 WBC (Bld) 2 % High NINF - 0 % [facility] Monocytes (Bld) [#/Vol] 0.4 10*3/uL 0.0 - 0.9 10*3/uL [facility] Monocytes/100 WBC (Bld) 5 % 5 - 13 % [facility] Myelocytes (Bld) [#/Vol] 0.2 10*3/uL High NINF - 0.0 10*3/uL [facility] Myelocytes/100 WBC (Bld) 2 % High NINF - 0 % [facility] Neutrophils (Bld) [#/Vol] 5.3 10*3/uL 1.8 - 7.5 10*3/uL [facility] Polychromasia LM Ql (Bld) Slight Abnormal (none) [facility] RBC morphology finding Nom (Bld) abnormal [facility] Segmented neutrophils/100 WBC (Bld) 65 % 38 - 82 % [facility] Laboratory - Microbiology an d Antimicrobial susceptibilityon 02-28-2024 Bacteria identified Cx Nom (Bld) No growth at 5 days [facility] MANUAL DIFFERENTIAL (CELLAVI JESSICA)on 02-28-2024 ANISOCYTOSIS PRESENCE IN BLOOD BY LIGHT MICROSCOPY Slight Abnormal (none) [facility] Comment on above: Performed By: #### L AB103, LAB17 #### Parts Sales Associate: STEVIE ELMORE ([phone]) [facility] ([facility]) [address] BAND NEUTROPHILS TOTAL PER COUNTED LEUKOCYTES BY MANUAL COUNT 4 Normal [facility] Comment on above: Performed By: #### L AB103, LAB17 #### Parts Sales Associate: STEVIE ELMORE ([phone]) [facility] ([facility]) [address] [place] [address] [place] BANDS (10*3/UL) IN BLOOD-CELLAVISION 0.3 10*3/uL High <=0.0 [facility] Comment on above: Performed By: #### L AB103, LAB17 #### Parts Sales Associate: STEVIE ELMORE ([phone]) [facility] [place] [facility] [address] [place] [address] [place] BASOPHILS (10*3/UL) IN BLOOD-CELLAVISION 0.1 10*3/uL Normal 0.0-0.2 [facility] Comment on above: Performed By: #### L AB103, LAB17 #### Parts Sales Associate: STEVIE ELMORE ([phone]) [facility] ([facility] [address] [place] [address] [place] BASOPHILS TOTAL PER COUNTED LEUKOCYTES BY MANUAL COUNT 1 Normal [facility] Comment on above: Performed By: #### L AB103, LAB17 #### Parts Sales Associate: STEVIE ELMORE ([phone]) [facility] [place] [facility] [address] [place] [address] [place] BASOPHILS/100 LEUKOCYTES IN BLOOD-CELLAVISION 1 % Normal 0-2 [facility] Comment on above: Performed By: #### L AB103, LAB17 #### Parts Sales Associate: STEVIE ELMORE ([phone]) [facility] [place] [facility] [address] [place] [address] [place] BLASTS TOTAL PER COUNTED LEUKOCYTES BY MANUAL COUNT Normal [facility] Comment on above: Performed By: #### L AB103, LAB17 #### Parts Sales Associate: STEVIE ELMORE ([phone]) [facility] [place] [facility] [address] [place] [address] [place] EOSINOPHILS (10*3/UL) IN BLOOD-CELLAVISION 0.2 10*3/uL Normal 0.0-0.5 [facility] Comment on above: Performed By: #### L AB103, LAB17 #### Parts Sales Associate: STEVIE ELMORE ([phone]) [facility] [place] [facility] [address] [place] [address] [place] EOSINOPHILS TOTAL PER COUNTED LEUKOCYTES BY MANUAL COUNT 3 High 0-1 [facility] Comment on above: Performed By: #### L AB103, LAB17 #### Parts Sales Associate: STEVIE ELMORE ([phone]) [facility] [place] ([facility] [address] [place] [address] [place] EOSINOPHILS/100 LEUKOCYTES IN BLOOD-CELLAVISION 3 % Normal 0-6 [facility] Comment on above: Performed By: #### L AB103, LAB17 #### Parts Sales Associate: STEVIE ELMORE ([id number]) [facility] [place] [facility] [address] [place] [address] [place] HYPOCHROMIA (PRESENCE) IN BLOOD BY LIGHT MICROSCOPY Slight Abnormal (none) [facility] Comment on above: Performed By: #### L AB103, LAB17 #### Parts Sales Associate: STEVIE MOSQUEDACER ([phone]) [facility] [place] ([facility] [address] [place] [address] [place] LYMPHOCYTES (10*3/UL) IN BLOOD-CELLAVISION 1.3 10*3/uL Normal 1.0-4.3 [facility] Comment on above: Performed By: #### L AB103, LAB17 #### Parts Sales Associate: STEVIE ELMORE ([phone]) [facility] [place] [facility] [address] [place] [address] [place] LYMPHOCYTES TOTAL PER COUNTED LEUKOCYTES BY MANUAL COUNT 17 Normal [facility] Comment on above: Performed By: #### L AB103, LAB17 #### Parts Sales Associate: STEVIE PUTNAMPERICO ([phone]) [facility] [place] ([facility] [address] [place] [address] [place] LYMPHOCYTES/100 LEUKOCYTES IN BLOOD-CELLAVISION 17 % Normal 15-45 [facility] Comment on above: Performed By: #### L AB103, LAB17 #### Parts Sales Associate: STEVIE ELMORE ([phone]) [facility] [place] [facility] [address] [place] [address] [place] METAMYELOCYTES (10*3/UL) IN BLOOD-CELLAVISION 0.2 10*3/uL High <=0.0 [facility] Comment on above: Performed By: #### L AB103, LAB17 #### Parts Sales Associate: STEVIE ELMORE ([phone]) [facility] [place] ([facility] [address] [place] [address] [place] METAMYELOCYTES TOTAL PER COUNTED LEUKOCYTES BY MANUAL COUNT 2 Normal [facility] Comment on above: Performed By: #### L AB103, LAB17 #### Parts Sales Associate: STEVIE ELMORE ([phone]) [facility] [place] ([facility] [address] [place] [address] [place] METAMYELOCYTES/100 LEUKOCYTES IN BLOOD-CELLAVISION 2 % High <=0 [facility] Comment on above: Performed By: #### L AB103, LAB17 #### Parts Sales Associate: STEVIE MOSQUEDACER ([phone]) [facility] [place] [facility] [address] [place] [address] [place] MONOCYTES (10*3/UL) IN BLOOD-CELLAVISION 0.4 10*3/uL Normal 0.0-0.9 [facility] Comment on above: Performed By: #### L AB103, LAB17 #### Parts Sales Associate: STEVIE MOSQUEDACER ([phone]) [facility] [place] ([facility] [address] [place] [address] [place] MONOCYTES TOTAL PER COUNTED LEUKOCYTES BY MANUAL COUNT 5 Normal [facility] Comment on above: Performed By: #### L AB103, LAB17 #### Parts Sales Associate: STEVIE ELMORE ([phone]) [facility] [place] ([facility] [address] [place] [address] [place] MONOCYTES/100 LEUKOCYTES IN BLOOD-JESSICA 5 % Normal 5-13 [facility] Comment on above: Performed By: #### L AB103, LAB17 #### Parts Sales Associate: STEVIE ELMORE ([phone]) [facility] [place] ([facility] [address] [place] [address] [place] MYELOCYTES (10*3/UL) IN BLOOD-CELLAVISION 0.2 10*3/uL High <=0.0 [facility] Comment on above: Performed By: #### L AB103, LAB17 #### Parts Sales Associate: STEVIE ELMORE ([phone]) [facility] [place] ([facility] [address] [place] [address] [place] MYELOCYTES COUNTED BY MANUAL COUNT 2 Normal [facility] Comment on above: Performed By: #### L AB103, LAB17 #### Parts Sales Associate: STEVIE ELMORE ([phone]) [facility] [place] ([facility] [address] [place] [address] [place] MYELOCYTES/100 LEUKOCYTES IN BLOOD-CELLAVISION 2 % High <=0 [facility] Comment on above: Performed By: #### L AB103, LAB17 #### Parts Sales Associate: STEVIE CATARINA ([phone]) [facility] [place] [facility] [address] [place] [address] [place] NEUTROPHILS BAND FORM/100 LEUKOCYTES IN BLOOD-CELLAVISI 4 % High <=0 [facility] Comment on above: Performed By: #### L AB103, LAB17 #### Parts Sales Associate: STEVIE MOYAFAHAD ([phone]) [facility] [place] [facility] [address] [place] [address] [place] NEUTROPHILS TOTAL PER COUNTED LEUKOCYTES BY MANUAL COUNT 64 Normal [facility] Comment on above: Performed By: #### L AB103, LAB17 #### Parts Sales Associate: STEVIE MOYAFAHAD ([phone]) [facility] [place] ([facility] [address] [place] [address] [place] POLYCHROMASIA IN BLOOD BY LIGHT MICROSCOPY Slight Abnormal (none) [facility] Comment on above: Performed By: #### L AB103, LAB17 #### Parts Sales Associate: STEVIE MOYAFAHAD ([phone]) [facility] [place] ([facility] [address] [place] [address] [place] PROMYELOCYTES TOTAL PER COUNTED LEUKOCYTES BY MANUAL COUNT Normal [facility] Comment on above: Performed By: #### L AB103, LAB17 #### Parts Sales Associate: STEVIE MOYAFAHAD ([phone]) [facility] [place] ([facility] [address] [place] [address] [place] RBC MORPHOLOGY IN BLOOD abnormal Normal [facility] Comment on above: Performed By: #### L AB103, LAB17 #### Parts Sales Associate: STEVIE MOYAFAHAD ([phone]) [facility] [place] [facility] [address] [place] [address] [place] SEGMENTED NEUTROPHILS (10*3/UL) IN BLOOD-CELLAVISION 5.3 10*3/uL Normal 1.8-7.5 [facility] Comment on above: Performed By: #### L AB103, LAB17 #### Parts Sales Associate: STEVIE CATARINA ([phone]) [facility] (SB[facility]) [address] SEGMENTED NEUTROPHILS/100 LEUKOCYTES-CE 65 % Normal 38-82 [facility] Comment on above: Performed By: #### L AB103, LAB17 #### Parts Sales Associate: STEVIE MOYAFAHAD ([phone]) [facility] ([facility]) [address] UNCLASSIFIED CELLS TOTAL PER COUNTED LEUKOCYTES BY MANUAL COUNT Normal [facility] Comment on above: Performed By: #### L AB103, LAB17 #### Parts Sales Associate: STEVIE MOYAFAHAD ([phone]) [facility] ([facility]) [address] VARIANT LYMPHOCYTES TOTAL PER COUNTED LEUKOCYTES BY MANUAL COUNT Normal [facility] Comment on above: Performed By: #### L AB103, LAB17 #### Parts Sales Associate: STEVIE MOYAFAHAD ([phone]) [facility] ([facility]) [address] No Panel Informationon 02-27 Interpretation and review of laboratory results Abnormal [facility] Interpretation and review of laboratory results Abnormal [facility] Bands Manual 4 [facility] Basophils Manual 1 [facility]th Eosinophils Manual 3 High 0 - 1 [facility] Interpretation and review of laboratory results Abnormal [facility] Lymphocytes Manual 17 [facility] Metamyelocytes Manual 2 [facility] Monocytes Manual 5 [facility] Myelocytes Manual 2 [facility]alth Neutrophils Manual 64 [facility] Interpretation and review of laboratory results Abnormal [facility] Radiology Study observation (narrative) [facility] Radiology Study observation (narrative) [facility] Radiology Study observation (narrative) [facility] Progress Noteon 02-28-2024 Progress Note Pt refused to allow [employer]EL[employer] to obtain Accucheck glucose level. Nurse used am BMP glucose level of 120 for am coverage. Nurse advised pt that for lunch and dinner pt will need to have bgl levels checked prior to eating. Pt agreeable. Normal [facility] Bacteria identified Cx Nom ( U)Ordered By: Brady Tom on 02-27-2024 Interpretation and review of laboratory results Abnormal [facility] CBC W Auto Differential pane l (Bld)Ordered By: Brady Carey on 02-27-2024 Erythrocyte distribution width (RBC) [Ratio] 15.0 % 11.5 - 15.0 % [facility] Hematocrit (Bld) [Volume fraction] 27.3 % Low 35.0 - 47.0 % [facility] Hemoglobin (Bld) [Mass/Vol] 8.3 g/dL Low 11.7 - 16.0 g/dL [facility] Interpretation and review of laboratory results Abnormal [facility] MCH (RBC) [Entitic mass] 28.4 pg 26.0 - 34.0 pg [facility] MCHC (RBC) [Mass/Vol] 30.4 % Low 30.5 - 36.0 % [facility] MCV (RBC) [Entitic vol] 93.5 fL 77.0 - 99.0 fL [facility] Platelet mean volume (Bld) [Entitic vol] 8.4 fL Low 9.0 - 12.7 fL [facility] Platelets (Bld) [#/Vol] 286 10*3/uL 140 - 440 10*3/uL [facility] RBC (Bld) [#/Vol] 2.92 10*6/uL Low 3.80 - 5.2 0 10*6/uL [facility] WBC (Bld) [#/Vol] 8.5 10*3/uL 3.6 - 10.7 10*3/uL [facility] CBC WITH AUTO DIFFERENTIALon 02-27-2024 Erythrocyte distribution width (RBC) [Ratio] 15.0 % Normal 11.5-15.0 [facility] Comment on above: Performed By: #### L AB103, LAB17 #### Parts Sales Associate: STEVIE ELMORE ([phone]) [facility] ([address] Hematocrit (Bld) [Volume fraction] 27.3 % Low 35.0-47.0 [facility] Comment on above: Performed By: #### L AB103, LAB17 #### Parts Sales Associate: STEVIE ELMORE ([phone]) [facility] ([facility]) [address] Hemoglobin (Bld) [Mass/Vol] 8.3 g/dL Low 11.7-16.0 [facility] Comment on above: Performed By: #### L AB103, LAB17 #### Parts Sales Associate: STEVIE CATARINA ([id number]) [facility] (SB[facility]) [address] MCH (RBC) [Entitic mass] 28.4 pg Normal 26.0-34.0 [facility] Comment on above: Performed By: #### L AB103, LAB17 #### Parts Sales Associate: STEVIE CATARINA ([phone]) [facility] (HLAB) [address] MCHC 30.4 % Low 30.5-36.0 [facility] Comment on above: Performed By: #### L AB103, LAB17 #### Parts Sales Associate: STEVIE CATARINA ([phone]) [facility] ([facility]) [address] MCV (RBC) [Entitic vol] 93.5 fL Normal 77.0-99.0 [facility] Comment on above: Performed By: #### L AB103, LAB17 #### Parts Sales Associate: STEVIE PUTNAMPERICO ([phone]) [facility] (SBHL[facility]) [address] Platelet mean volume (Bld) [Entitic vol] 8.4 fL Low 9.0-12.7 [facility] Comment on above: Performed By: #### L AB103, LAB17 #### Parts Sales Associate: STEVIE PUTNAMPERICO ([phone]) [facility] (SB[facility]) [address] Platelets (Bld) [#/Vol] 286 10*3/uL Normal 140-440 [facility] Comment on above: Performed By: #### L AB103, LAB17 #### Parts Sales Associate: STEVIE ELMORE ([phone]) [facility] ([facility]) [address] RBC (Bld) [#/Vol] 2.92 10*6/uL Low 3.80-5.20 [facility] Comment on above: Performed By: #### L AB103, LAB17 #### Parts Sales Associate: STEVIE ELMORE ([phone]) [facility] ([facility]) [address] WBC (Bld) [#/Vol] 8.5 10*3/uL Normal 3.6-10.7 [facility] Comment on above: Performed By: #### L AB103, LAB17 #### Parts Sales Associate: STEVIE PUTNAMPERICO ([id number]) [facility] (HLAB) [address] COMPREHENSIVE METABOLIC PANE Wade 02-27-2024 Albumin [Mass/Vol] 2.6 g/dL Low 3.5-5.0 [facility] Comment on above: Performed By: #### L AB103, LAB17 #### Parts Sales Associate: STEVIE ELMORE ([phone]) [facility] ([facility]) [address] ALP [Catalytic activity/Vol] 68 U/L Normal 38-126 [facility] Comment on above: Performed By: #### L AB103, LAB17 #### Parts Sales Associate: STEVIE ELMORE ([phone]) [facility] ([facility]) [address] ALT [Catalytic activity/Vol] 19 U/L Normal 0-34 [facility] Comment on above: Performed By: #### L AB103, LAB17 #### Parts Sales Associate: STEVIE ELMORE ([phone]) [facility] ([facility]) [address] Anion gap [Moles/Vol] 0 mmol/L Low 3-13 [facility] Comment on above: Performed By: #### L AB103, LAB17 #### Parts Sales Associate: STEVIE ELMORE ([phone]) [facility] (SB[facility]) [address] AST [Catalytic activity/Vol] 20 U/L Normal 15-46 [facility] Comment on above: Performed By: #### L AB103, LAB17 #### Parts Sales Associate: SETVIE ELMORE ([phone]) [facility] ([facility]) [address] Bilirubin [Mass/Vol] 0.2 mg/dL Normal 0.2-1.3 [facility] Comment on above: Performed By: #### L AB103, LAB17 #### Parts Sales Associate: STEVIE ELMORE ([phone]) [facility] ([facility]) [address] Calcium [Mass/Vol] 8.5 mg/dL Normal 8.4-10.4 [facility] Comment on above: Performed By: #### L AB103, LAB17 #### Parts Sales Associate: STEVIE ELMORE ([id number]) [facility] ([facility]) [address] [place] [address] [place] Chloride [Moles/Vol] 106 mmol/L Normal 98-107 [facility] Comment on above: Performed By: #### L AB103, LAB17 #### Parts Sales Associate: STEVIE ELMORE ([phone]) [facility] ([facility]) [address] [place] [address] [place] CO2 [Moles/Vol] 31 mmol/L High 22-30 [facility] Comment on above: Performed By: #### L AB103, LAB17 #### Parts Sales Associate: STEVIE ELMORE ([phone]) [facility] ([facility]) [address] [place] [address] [place] Creatinine [Mass/Vol] 1.30 mg/dL High 0.52-1.04 [facility] Comment on above: Performed By: #### L AB103, LAB17 #### Parts Sales Associate: STEVIE ELMORE ([phone]) [facility] (SB[facility]) [address] [place] [address] [place] GLOMERULAR FILTRATION RATE ML/MIN/1.73 SQ M.PREDICTED 45.4 mL/min/1.73m*2 Low >60.0 [facility] Comment on above: Result Comment: Calc ulation based on the Chronic Kidney Disease Epidemiology Collaboration (CKD-EPI) equation refit without adjustment for race Performed By: #### L AB103, LAB17 #### Parts Sales Associate: STEVIE ELMORE ([phone]) [facility] ([facility]) [address] Glucose [Mass/Vol] 137 mg/dL High 70-100 [facility] Comment on above: Performed By: #### L AB103, LAB17 #### Parts Sales Associate: STEVIE ELMORE ([phone]) [facility] ([facility]) [address] Potassium [Moles/Vol] 4.7 mmol/L Normal 3.5-5.1 [facility] Comment on above: Performed By: #### L AB103, LAB17 #### Parts Sales Associate: STEVIE ELMORE ([phone]) [facility] ([facility]) [address] Protein [Mass/Vol] 5.2 g/dL Low 6.3-8.2 [facility] Comment on above: Performed By: #### L AB103, LAB17 #### Parts Sales Associate: STEVIE ELMORE ([phone]) [facility] ([facility]) [address] [place] [address] [place] Sodium [Moles/Vol] 137 mmol/L Normal 135-145 [facility] Comment on above: Performed By: #### L AB103, LAB17 #### Parts Sales Associate: STEVIE ELMORE ([phone]) [facility] ([facility]) [address] [place] [address] [place] Urea nitrogen [Mass/Vol] 26 mg/dL High 7-17 [facility] Comment on above: Performed By: #### L AB103, LAB17 #### Parts Sales Associate: STEVIE ELMORE ([phone]) [facility] (SB[facility]) [address] Comprehensive metabolic 1998 panelon 02-27-2024 Albumin [Mass/Vol] 2.6 g/dL Low 3.5 - 5.0 g/dL [facility] ALP [Catalytic activity/Vol] 68 U/L 38 - 126 U/L [facility] ALT [Catalytic activity/Vol] 19 U/L 0 - 34 U/L [facility] Anion gap [Moles/Vol] 0 mmol/L Low 3 - 13 mmol/L [facility] AST [Catalytic activity/Vol] 20 U/L 15 - 46 U/L [facility] Bilirubin [Mass/Vol] 0.2 mg/dL 0.2 - 1 .3 mg/dL [facility] Calcium [Mass/Vol] 8.5 mg/dL 8.4 - 10. 4 mg/dL [facility] Chloride [Moles/Vol] 106 mmol/L 98 - 10 7 mmol/L [facility] CO2 [Moles/Vol] 31 mmol/L High 22 - 30 mmol/L [facility] Creatinine [Mass/Vol] 1.30 mg/dL High 0.52 - 1.04 mg/dL [facility] GFR/1.73 sq M.predicted MDRD (S/P/Bld) [Vol rate/Area] 45.4 mL/min/{1.73_m2} Low - PINF [facility] th Glucose [Mass/Vol] 137 mg/dL High 70 - 100 mg/dL [facility] Interpretation and review of laboratory results Abnormal [facility] Potassium [Moles/Vol] 4.7 mmol/L 3.5 - 5.1 mmol/L [facility] Protein [Mass/Vol] 5.2 g/dL Low 6.3 - 8.2 g/dL [facility] Sodium [Moles/Vol] 137 mmol/L 135 - 145 mmol/L [facility] Urea nitrogen [Mass/Vol] 26 mg/dL High 7 - 17 mg/dL [facility] Laboratory - Chemistry and C hemistry - challengeon 02-27-2024 Glucose [Mass/Vol] 186 mg/dL High 70 - 100 mg/dL [facility] Glucose [Mass/Vol] 214 mg/dL High 70 - 100 mg/dL [facility] Glucose [Mass/Vol] 128 mg/dL High 70 - 100 mg/dL [facility] Glucose [Mass/Vol] 134 mg/dL High 70 - 100 mg/dL [facility] Glucose [Mass/Vol] 135 mg/dL High 70 - 100 mg/dL [facility] Laboratory - Hematology and Cell countson 02-27-2024 Band form neutrophils (Bld) [#/Vol] 0.2 10*3/uL High NINF - 0.0 10*3/uL [facility] Band form neutrophils/100 WBC (Bld) 2 % High NINF - 0 % [facility] Basophils (Bld) [#/Vol] 0.3 10*3/uL High 0.0 - 0.2 10*3/uL [facility] Basophils/100 WBC (Bld) 3 % High 0 - 2 % [facility] Eosinophils (Bld) [#/Vol] 0.2 10*3/uL 0.0 - 0.5 10*3/uL [facility] Eosinophils/100 WBC (Bld) 2 % 0 - 6 % [facility] Lymphocytes (Bld) [#/Vol] 1.7 10*3/uL 1.0 - 4.3 10*3/uL [facility] Lymphocytes/100 WBC (Bld) 20 % 15 - 45 % [facility] Monocytes (Bld) [#/Vol] 0.3 10*3/uL 0.0 - 0.9 10*3/uL [facility] Monocytes/100 WBC (Bld) 4 % Low 5 - 13 % [facility] Myelocytes (Bld) [#/Vol] 0.3 10*3/uL High NINF - 0.0 10*3/uL [facility] Myelocytes/100 WBC (Bld) 3 % High NINF - 0 % [facility] Neutrophils (Bld) [#/Vol] 5.8 10*3/uL 1.8 - 7.5 10*3/uL [facility] Poikilocytosis LM Ql (Bld) Rare Abnormal (none) [facility] RBC morphology finding Nom (Bld) abnormal [facility] Segmented neutrophils/100 WBC (Bld) 66 % 38 - 82 % [facility] Stomatocytes LM Ql (Bld) Slight Abnormal (none) [facility] Laboratory - Microbiology an d Antimicrobial susceptibilityOrdered By: Brady Tom on 02-27-2024 Bacteria identified Cx Nom (U) Normal urogenital krys present [facility] Bacteria identified Cx Nom (U) 10,000-50,000 CFU/mL Jose albicans Abnormal [facility] MANUAL DIFFERENTIAL (CELLAVI JESSICA)on 02-27-2024 BAND NEUTROPHILS TOTAL PER COUNTED LEUKOCYTES BY MANUAL COUNT 2 Normal [facility] Comment on above: Performed By: #### L AB103, LAB17 #### Parts Sales Associate: STEVIE ELMORE ([phone]) [facility] ([facility]) [address] [place] [address] [place] BANDS (10*3/UL) IN BLOOD-CELLAVISION 0.2 10*3/uL High <=0.0 [facility] Comment on above: Performed By: #### L AB103, LAB17 #### Parts Sales Associate: STEVIE ELMORE ([phone]) [facility] (SB[facility]) [address] [place] [address] [place] BASOPHILS (10*3/UL) IN BLOOD-CELLAVISION 0.3 10*3/uL High 0.0-0.2 [facility] Comment on above: Performed By: #### L AB103, LAB17 #### Parts Sales Associate: STEVIE ELMORE ([phone]) [facility] ([facility]) [address] [place] [address] [place] BASOPHILS TOTAL PER COUNTED LEUKOCYTES BY MANUAL COUNT 3 Normal [facility] Comment on above: Performed By: #### L AB103, LAB17 #### Parts Sales Associate: STEVIE ELMORE ([phone]) [facility] ([facility]) [address] [place] [address] [place] BASOPHILS/100 LEUKOCYTES IN BLOOD-CELLAVISION 3 % High 0-2 [facility] Comment on above: Performed By: #### L AB103, LAB17 #### Parts Sales Associate: STEVIE ELMORE ([phone]) [facility] [place] (SBHLAB) [address] [place] [address] [place] BLASTS TOTAL PER COUNTED LEUKOCYTES BY MANUAL COUNT Normal [facility] Comment on above: Performed By: #### L AB103, LAB17 #### Parts Sales Associate: STEVIE ELMORE ([phone]) [facility] [place] (SBHLAB) [address] [place] [address] [place] EOSINOPHILS (10*3/UL) IN BLOOD-CELLAVISION 0.2 10*3/uL Normal 0.0-0.5 [facility] [facility] Comment on above: Performed By: #### L [id number], [id number] #### Parts Sales Associate: STEVIE ELMORE ([id number]) [facility] ([facility]) [address] [place] [address] [place] EOSINOPHILS TOTAL PER COUNTED LEUKOCYTES BY MANUAL COUNT 2 High 0-1 [facility] Comment on above: Performed By: #### L [id number], [id number] #### Parts Sales Associate: STEVIE ELMORE ([phone]) [facility] [address] [place] [address] [place] EOSINOPHILS/100 LEUKOCYTES IN BLOOD-CELLAVISION 2 % Normal 0-6 [facility] Comment on above: Performed By: #### L [id number], [id number] #### Parts Sales Associate: STEVIE ELMORE ([id number]) [facility] [address] [place] [address] [place] LYMPHOCYTES (10*3/UL) IN BLOOD-CELLAVISION 1.7 10*3/uL Normal 1.0-4.3 [facility] Comment on above: Performed By: #### L [id number], [id number] #### Parts Sales Associate: STEVIE ELMORE ([id number]) [facility] ([facility]) [address] [place] [address] [place] LYMPHOCYTES TOTAL PER COUNTED LEUKOCYTES BY MANUAL COUNT 20 Normal [facility] Comment on above: Performed By: #### L [id number], [id number] #### Parts Sales Associate: STEVIE ELMORE ([phone]) [facility] ([facility]) [address] [place] [address] [place] LYMPHOCYTES/100 LEUKOCYTES IN BLOOD-CELLAVISION 20 % Normal 15-45 [facility] Comment on above: Performed By: #### L [id number], LAB17 #### Parts Sales Associate: STEVIE ELMORE ([id number]) [facility] ([facility]) [address] [place] [address] [place] METAMYELOCYTES TOTAL PER COUNTED LEUKOCYTES BY MANUAL COUNT Normal [facility] Comment on above: Performed By: #### L AB103, LAB17 #### Parts Sales Associate: STEVIE MOSQUEDACER ([phone]) [facility] ([facility]) [address] [place] [address] [place] MONOCYTES (10*3/UL) IN BLOOD-CELLAVISION 0.3 10*3/uL Normal 0.0-0.9 [facility] Comment on above: Performed By: #### L [id number], [id number] #### Parts Sales Associate: STEVIE ELMORE ([phone]) [facility] [address] [place] [address] [place] MONOCYTES TOTAL PER COUNTED LEUKOCYTES BY MANUAL COUNT 4 Normal [facility] Comment on above: Performed By: #### L [id number], LAB17 #### Parts Sales Associate: STEVIE ELMORE ([phone]) [facility] [address] [place] [address] [place] MONOCYTES/100 LEUKOCYTES IN BLOOD-JESSICA 4 % Low 5-13 [facility] Comment on above: Performed By: #### L [id number], LAB17 #### Parts Sales Associate: STEVIE MOSQUEDACER ([id number]) [facility] ([facility]) [address] [place] [address] [place] MYELOCYTES (10*3/UL) IN BLOOD-CELLAVISION 0.3 10*3/uL High <=0.0 [facility] Comment on above: Performed By: #### L [id number], LAB17 #### Parts Sales Associate: STEVIE ELMORE ([phone]) [facility] ([facility]) [address] [place] [address] [place] MYELOCYTES COUNTED BY MANUAL COUNT 3 Normal [facility] Comment on above: Performed By: #### L [id number], LAB17 #### Parts Sales Associate: STEVIE ELMORE ([phone]) [facility] ([facility]) [address] [place] [address] [place] MYELOCYTES/100 LEUKOCYTES IN BLOOD-CELLAVISION 3 % High <=0 [facility] Comment on above: Performed By: #### L [id number], LAB17 #### Parts Sales Associate: STEVIE ELMORE ([id number]) [facility] ([facility]) [address] [place] [address] [place] NEUTROPHILS BAND FORM/100 LEUKOCYTES IN BLOOD-CELLAVISI 2 % High <=0 [facility] Comment on above: Performed By: #### L [id number], LAB17 #### Parts Sales Associate: STEVIE ELMORE ([phone]) [facility] ([facility]) [address] [place] [address] [place] NEUTROPHILS TOTAL PER COUNTED LEUKOCYTES BY MANUAL COUNT 67 Normal [facility] Comment on above: Performed By: #### L [id number], LAB17 #### Parts Sales Associate: STEVIE ELMORE ([phone]) [facility] ([facility]) [address] [place] [address] [place] POIKILOCYTOSIS (PRESENCE) IN BLOOD BY LIGHT MICROSCOPY Rare Abnormal (none) [facility] Comment on above: Performed By: #### L AB103, LAB17 #### Parts Sales Associate: STEVIE ELMORE ([phone]) [facility] ([facility]) [address] [place] [address] [place] PROMYELOCYTES TOTAL PER COUNTED LEUKOCYTES BY MANUAL COUNT [facility] Comment on above: Performed By: #### L AB103, LAB17 #### Parts Sales Associate: STEVIE ELMORE ([id number]) [facility] ([facility]) [address] [place] [address] [place] RBC MORPHOLOGY IN BLOOD abnormal Normal [facility] Comment on above: Performed By: #### L AB103, LAB17 #### Parts Sales Associate: STEVIE OMSQUEDACER ([phone]) [facility] [address] [place] [address] [place] SEGMENTED NEUTROPHILS (10*3/UL) IN BLOOD-CELLAVISION 5.8 10*3/uL Normal 1.8-7.5 [facility] Comment on above: Performed By: #### L AB103, LAB17 #### Parts Sales Associate: STEVIE ELMORE ([phone]) [facility] [address] SEGMENTED NEUTROPHILS/100 LEUKOCYTES-CE 66 % Normal 38-82 [facility] Comment on above: Performed By: #### L AB103, LAB17 #### Parts Sales Associate: STEVIE ELMORE ([phone]) [facility] ([facility]) [address] [place] [address] [place] STOMATOCYTES IN BLOOD BY LIGHT MICROSCOPY Slight Abnormal (none) [facility] Comment on above: Performed By: #### L AB103, LAB17 #### Parts Sales Associate: STEVIE ELMORE ([id number]) [facility] ([facility]) [address] UNCLASSIFIED CELLS TOTAL PER COUNTED LEUKOCYTES BY MANUAL COUNT Normal [facility] Comment on above: Performed By: #### L AB103, LAB17 #### Parts Sales Associate: STEVIE ELMORE ([phone]) [facility] ([facility]) [address] VARIANT LYMPHOCYTES TOTAL PER COUNTED LEUKOCYTES BY MANUAL COUNT Normal [facility] Comment on above: Performed By: #### L AB103, LAB17 #### Parts Sales Associate: STEVIE ELMORE ([id number]) [facility] ([facility]) [address] No Panel Informationon 02-26 Interpretation and review of laboratory results Abnormal [facility] Interpretation and review of laboratory results Abnormal [facility] Interpretation and review of laboratory results Abnormal [facility] Interpretation and review of laboratory results Abnormal [facility] RADIOLOGY [facility] Interpretation and review of laboratory results Abnormal [facility] Bands Manual 2 [facility] Basophils Manual 3 [facility] Eosinophils Manual 2 High 0 - 1 [facility] Interpretation and review of laboratory results Abnormal [facility] Lymphocytes Manual 20 [facility] Monocytes Manual 4 [facility] Myelocytes Manual 3 [facility] ealth Neutrophils Manual 67 [facility] Radiology Study observation (narrative) [facility] Radiology Study observation (narrative) [facility] Radiology Study observation (narrative) [facility] Radiology Study observation (narrative) [facility] Radiology Study observation (narrative) [facility] No Panel InformationOrdered By: Tadeo Dasilva on 02-27-2024 [facility] Work Phone: Progress Noteon 02-27-2024 Progress Note [phone]: Please pa [facility] ([phone]) for patient care issues. [phone]: Please page [facility] Hospitalist for any issues. Subjective: Admit Date: 02/21/2024 PCP: Lucy Quick Room#: [id number]/[id number] A This note is documented later because of loss of Epic access on 02/27/2024 Kimberly Patel is a 68 y.o. female who presents with Sphenoid sinusitis, unspecified chronicity Interval History: Lying in bed , appears weak, remains on 4 L nasal cannula. Reached out to ID service, awaiting urine culture , compliant with antibiotics denies chest pain, sob, abdominal pain, nausea, vomiting, diarrhea, constipation, fevers, or chills. No diet orders on file 24HR INTAKE/OUTPUT: LABS: Labs and Imaging: Recent Results[]Expand by Default Recent Results (from the past 24 hour(s)) POCT glucose meter Collection Time: 02/26/24 4:33 PM Result Value Ref Range Glucose 186 (H) 70 - 100 mg/dL POCT glucose meter Collection Time: 02/26/24 9:03 PM Result Value Ref Range Glucose 207 (H) 70 - 100 mg/dL CBC auto differential Collection Time: 02/27/24 2:50 AM Result Value Ref Range Auto WBC 8.5 3.6 - 10.7 10*3/uL RBC 2.92 (L) 3.80 - 5.20 10*6/uL Hemoglobin 8.3 (L) 11.7 - 16.0 g/dL Hematocrit 27.3 (L) 35.0 - 47.0 % MCV 93.5 77.0 - 99.0 fL MCH 28.4 26.0 - 34.0 pg MCHC 30.4 (L) 30.5 - 36.0 % RDW 15.0 11.5 - 15.0 % Platelets 286 140 - 440 10*3/uL MPV 8.4 (L) 9.0 - 12.7 fL Comprehensive metabolic panel Collection Time: 02/27/24 2:50 AM Result Value Ref Range SODIUM 137 135 - 145 mmol/L POTASSIUM 4.7 3.5 - 5.1 mmol/L CHLORIDE 106 98 - 107 mmol/L CARBON DIOXIDE 31 (H) 22 - 30 mmol/L ANION GAP 0 (L) 3 - 13 mmol/L UREA NITROGEN 26 (H) 7 - 17 mg/dL CREATININE 1.30 (H) 0.52 - 1.04 mg/dL GLUCOSE 137 (H) 70 - 100 mg/dL CALCIUM 8.5 8.4 - 10.4 mg/dL AST (SGOT) 20 15 - 46 U/L ALT 19 0 - 34 U/L ALKALINE PHOSPHATASE 68 38 - 126 U/L ALBUMIN 2.6 (L) 3.5 - 5.0 g/dL BILIRUBIN, TOTAL 0.2 0.2 - 1.3 mg/dL TOTAL PROTEIN 5.2 (L) 6.3 - 8.2 g/dL eGFR 45.4 (L) >60.0 mL/min/1.73m*2 MANUAL DIFFERENTIAL (CELLAVISION) Collection Time: 02/27/24 2:50 AM Result Value Ref Range RBC Morphology abnormal Poikilocytes Rare (A) (none) Stomatocytes Slight (A) (none) Neutrophils % 66 38 - 82 % Bands % 2 (H) <=0 % Lymphocytes % 20 15 - 45 % Monocytes % 4 (L) 5 - 13 % Eosinophils % 2 0 - 6 % Basophils % 3 (H) 0 - 2 % Myelocytes % 3 (H) <=0 % Absolute Neutrophil Count 5.8 1.8 - 7.5 10*3/uL Bands Absolute 0.2 (H) <=0.0 10*3/uL Lymphocytes Absolute 1.7 1.0 - 4.3 10*3/uL Monocytes Absolute 0.3 0.0 - 0.9 10*3/uL Eosinophils Absolute 0.2 0.0 - 0.5 10*3/uL Basophils Absolute 0.3 (H) 0.0 - 0.2 10*3/uL Myelocytes Absolute 0.3 (H) <=0.0 10*3/uL Neutrophils Manual 67 Lymphocytes Manual 20 Monocytes Manual 4 Eosinophils Manual 2 (H) 0 - 1 Basophils Manual 3 Bands Manual 2 Metamyelocytes Manual Myelocytes Manual 3 Promyelocytes Manual Blasts Manual Atypical Lymphocytes Manual Unclassified Cells, Manual POCT glucose meter Collection Time: 02/27/24 8:56 AM Result Value Ref Range Glucose 135 (H) 70 - 100 mg/dL POCT glucose meter Collection Time: 02/27/24 12:07 PM Result Value Ref Range Glucose 134 (H) 70 - 100 mg/dL Lab Results Component Value Date TSH 1.267 02/22/2024 Lab Results Component Value Date [id number] 294 02/22/2024 No results found for: VITD25 Objective: BP 149/84 (BP Location: Right arm, Patient Position: Sitting) Pulse 81 Temp 36.6 ?C (97.8 ?F) (Oral) Resp 16 Ht 5' 5 (1.651 m) Wt 249 lb 6.4 oz (113 kg) SpO2 100% BMI 41.50 kg/m? General appearance: No apparent distress, appears stated age, HEENT: No JVD eyes: No scleral icterus Oral: Tongue is semi-moist Cardiovascular: S1/S2 heard, RRR Respiratory: Diminished breath sounds bilaterally with mild wheeze at the bases Abdomen: Soft, obese, non-tender, non-distended bowel sounds positive Musculoskeletal: No obvious deformities seen, ankle edema Skin: No visible rashes or lesions. Medications: Current Facility-Administered Medications: acetaminophen (Tylenol) tablet 650 mg, 650 mg, Oral, q6h PRN, 650 mg at 02/27/24 1439 OR acetaminophen (Tylenol) suppository 650 mg, 650 mg, Rectal, q6h PRN, Shmuel Trevino MD aspirin EC tablet 81 mg, 81 mg, Oral, Daily, Rob Lai MD, 81 mg at 02/27/24 0907 atorvastatin (Lipitor) tablet 40 mg, 40 mg, Oral, Daily, Rob Lai MD, 40 mg at 02/27/24 0906 bisacodyl (Dulcolax) EC tablet 5 mg, 5 mg, Oral, Daily PRN, Rob Lai MD cyanocobalamin (Vitamin B-12) tablet 1,000 mcg, 1,000 mcg, Oral, Daily, Marisa Su APRN - TOUR ACTOR, 1,000 mcg at 02/27/24 0917 dextrose 5 % infusion, 100 mL/hr, IntraVENous, PRN, Shmuel Trevino MD dextrose 50 % solution 12.5 g, 12.5 g, IntraVENous, PRN, Shmuel Trevino MD enoxaparin (Lovenox) syringe 40 mg, 40 mg, SubCUTAneous, Daily, Shmuel Trevino MD, 40 mg at 02/27/24 09 ertapenem (INVanz) 1,000 mg i (more content not included)... Normal [facility] Progress Note [facility] Geriatric Medicine Inpatient Consult Service Admission Date: 02/21/2024 Assessment Principal Problem: Sphenoid sinusitis, unspecified chronicity Active Problems: UTI (urinary tract infection) Plan Metabolic encephalopathy --appears resolved. No use of PRN Seroquel. --Etiology likely related to bacteremia/UTI, change of environment --Encourage PO intake, time up in chair, family visits, supervised ambulation, and sleep hygiene --If agitated, assess for and consider treating for pain --QTc= 448 --No antipsychotic unless patient is danger to self/others/treatment --continue PRN melatonin at HS --continue Seroquel 12.5mg BID PRN for agitation, recommend stopping prior to discharge --Monitor for constipation/urinary retention - last BM 02/23 --Possible medication contributions: -avoid hydroxyzine if possible as may worsen cognition due to anticholinergic effects Bipolar disorder -Has been under reasonable control, does not routinely have hallucinations Depression -continue Effexor Functional impairment/bedbound/hoy er dependent -plan to return to facility, likely LTC -patient refused PT/OT Borderline B12 -Continue B12 PO daily Follow-up: prn, please page with any questions/issues Subjective Chief Complaint: fatigue Geriatrics consulted for Delirium HPI- The patient is known to me. 68 year old with PMH of CHF, COPD, DM who presented to the hospital on 02/21/24 with complaints of change in mental status. She resides at [facility]. Family reported has had several hospitalizations with similar symptoms particularly when associated UTI and bloodstream infection. Medical record shows several ED visits for change in mental status and hallucinations over past 6-9 months. History of bipolar disorder that has been under control. Reviewed all notes -PICC placed today for intermediate designer antibiotics -dietary - no malnutrition -ID - severe sepsis improved. Ecoli bacteremia, UTI, sinusitis Interval History: Remains on telemetry. -Patient stated she just fell asleep and just wants to sleep. Doesn't sleep well during the night due to interruptions. Reports intermittent pain, does not specify. -No nursing concerns Review of Systems Constitutional: Positive for fatigue. Negative for fever. Respiratory: Negative for cough and shortness of breath. Gastrointestinal: Negative for abdominal pain, constipation, diarrhea and nausea. Genitourinary: Negative for difficulty urinating. Neurological: Positive for weakness. Negative for dizziness. Psychiatric/Behavioral: Positive for sleep disturbance. Objective BP 149/84 (BP Location: Right arm, Patient Position: Sitting) Pulse 81 Temp 36.6 ?C (97.8 ?F) (Oral) Resp 16 Ht 5' 5 (1.651 m) Wt 249 lb 6.4 oz (113 kg) SpO2 100% BMI 41.50 kg/m? Intake/Output Summary (Last 24 hours) at 02/27/2024 1531 Last data filed at 02/26/2024 2146 Gross per 24 hour Intake -- Output 300 ml Net -300 ml Wt Readings from Last 3 Encounters: 02/25/24 249 lb 6.4 oz (113 kg) 10/19/21 279 lb (127 kg) 10/18/21 279 lb (127 kg) Current Facility-Administered Medications: acetaminophen (Tylenol) tablet 650 mg, 650 mg, Oral, q6h PRN, 650 mg at 02/27/24 1439 OR acetaminophen (Tylenol) suppository 650 mg, 650 mg, Rectal, q6h PRN, Shmuel Trevino MD aspirin EC tablet 81 mg, 81 mg, Oral, Daily, Rob Lai MD, 81 mg at 02/27/24 0907 atorvastatin (Lipitor) tablet 40 mg, 40 mg, Oral, Daily, Rob Lai MD, 40 mg at 02/27/24 09 bisacodyl (Dulcolax) EC tablet 5 mg, 5 mg, Oral, Daily PRN, Rob Lai MD cyanocobalamin (Vitamin B-12) tablet 1,000 mcg, 1,000 mcg, Oral, Daily, Marisa Su, HAM DOCTOR - TOUR ACTOR, 1,000 mcg at 02/27/24 0917 dextrose 5 % infusion, 100 mL/hr, IntraVENous, PRN, Shmuel Trevino MD dextrose 50 % solution 12.5 g, 12.5 g, IntraVENous, PRN, Shmuel Trevino MD enoxaparin (Lovenox) syringe 40 mg, 40 mg, SubCUTAneous, Daily, Shmuel Trevino MD, 40 mg at 02/27/24 09 ertapenem (INVanz) 1,000 mg in sodium chloride 0.9 % 50 mL IVPB Mini-Bag Plus, 1,000 mg, IntraVENous, q24h, Clare Del Cid MD, Stopped at 02/27/24 0937 famotidine (Pepcid) tablet 40 mg, 40 mg, Oral, Daily, Rob Lai MD, 40 mg at 02/27/24 09 glucagon (human recombinant) injection 1 mg, 1 mg, IntraMUSCular, PRN, Shmuel Trevino MD glucose oral gel 15 g, 15 g, Oral, PRN, Shmuel Trevino MD insulin glargine (Lantus) injection 50 Units, 50 Units, SubCUTAneous, BID, Shmuel Trevino MD, 50 Units at 02/27/24 0907 Insulin Lispro (Humalog) injection 0-12 Units, 0-12 Units, SubCUTAneous, TID WC, 2 Units at 02/26/24 1641 AND Insulin Lispro (Humalog) injection 0-12 Units, 0-12 Units, SubCUTAneous, Nightly, Shmuel Trevino MD, 4 Units at 02/26/24 2115 ipratropium-albuterol (Duo-Neb) 0.5-2.5 mg/3 mL nebulizer solution 3 mL, 3 mL, Nebulization, q4h PRN, Shmuel Trevino MD isosorbide mononitrate ER (Imdur) 24 hr tablet (more content not included)... Normal [facility] Progress Note Nutrition Assessment Type and Reason for Visit: Reassess Nutrition Recommendations/Plan: Continue diet as ordered Adult diet Regular; 4 carb choices (60 gm/meal) Please continue to record meal intakes in RN Flowsheets RD to monitor po intake /reassess need for supplement, labs, weight, skin status; follow up weekly Malnutrition Assessment: Malnutrition Status: No malnutrition Context: Acute Illness Findings of the 6 clinical characteristics of malnutrition: Energy Intake: No significant decrease in energy intake Weight Loss: Unable to assess (weights highly variable) Body Fat Loss: No significant body fat loss Muscle Mass Loss: No significant muscle mass loss Fluid Accumulation: Mild Extremities 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 Severe sepsis improved. Acute metabolic encephalopathy due to UTI- improving, ESBL- E coli bacteremia. PICC line planned. ID and Geriatrics following. MAMMOGRAPHY TECHNICIAN 02/22 rec'd regular diet textures. Pt sleeping on visit -awakened easily reports good appetite tolerating meals. Discharge planning to ECF -pt reports possible discharge today Estimated Daily Nutrient Needs: Energy Requirements Based On: Kcal/kg Weight Used for Energy Requirements: [place] Weight for Energy Calculation (kg): 57 kg Total Energy Requirements (kcals/day): 1425- 1710 (25-30 kcal/kg IBW) Weight Used for Protein Requirements: [place] Weight in Kg Used for Protein Requirements: 57 kg Estimated Total Protein (g/day): 57-68 (1.0-1.2 g protein/kg IBW) Estimated Daily Total Fluid (ml/day): per Nutrition Related Findings: +1 cherise LE edema, loose bm 02/23. bun 26/cr 1.30, bgluc 137, alb 2.6. meds include insulin, k+. wt hx reviewed -variable ?accuracy of measures Wound Type: Pressure Injury, Wound Consult Pending 02/25/24 0456 113 kg (249 lb 6.4 oz) 02/24/24 0518 113 kg (250 lb 1.6 oz) 02/23/24 0500 112 kg (246 lb 4.8 oz) 02/22/24 0612 133 kg (293 lb 3.4 oz) 02/21/24 1031 133 kg (294 lb) Current Nutrition Therapies: Adult diet Regular; 4 carb choices (60 gm/meal) Current Oral Intake Average Meal Intake: 76-100% Average Supplements Intake: None Ordered Anthropometric Measures: Height: 165.1 cm (5' 5) Current Body Weight: 107 kg (235 lb 3.7 oz) Weight Source: Bed Scale Admission Body Weight: 133 kg (294 lb) (stated) Usual Body Weight: 114 kg (251 lb) (07/09/2023) % Weight Change (Calculated): -6.3 [place] Body Weight (lbs) (Calculated): 125 lbs [place] Body Weight (Kg) (Calculated): 57 kg % [place] Body Weight (Calculated): 188.2 % BMI (kg/m2) (Calculated): 39.1 Weight Adjustment For: No Adjustment BMI Categories: Obese Class 2 (BMI 35.0 -39.9) Nutrition Diagnosis: Increased nutrient needs related to acute injury/trauma as evidenced by (ESBL- E coli bacteremia due to UTI.) Altered nutrition-related lab values related to endocrine dysfuntion as evidenced by lab values Nutrition Interventions: Nutrition Education/Counseling: Education declined Coordination of Nutrition Care: Continue to monitor while inpatient Plan of Care discussed with: patient Goals: Previous Goal Met: Progressing toward Goal(s) Goals: PO intake 75% or greater, prior to discharge Nutrition Monitoring and Evaluation: Behavioral-Environmenta l Outcomes: None Identified Food/Nutrient Intake Outcomes: Food and Nutrient Intake Physical Signs/Symptoms Outcomes: Biochemical Data, Chewing or Swallowing, GI Status, Nausea or Vomiting, Fluid Status or Edema, Hemodynamic Status, Nutrition Focused Physical Findings, Skin, Weight Discharge Planning: Continue current diet Debbie Mccoy RD Contact: [phone] or via Secure Chat Normal [facility] CBC W Auto Differential pane l (Bld)Ordered By: Alvaro Ivan on 02-26-2024 Erythrocyte distribution width (RBC) [Ratio] 14.7 % 11.5 - 15.0 % [facility] Hematocrit (Bld) [Volume fraction] 26.7 % Low 35.0 - 47.0 % [facility] Hemoglobin (Bld) [Mass/Vol] 8.2 g/dL Low 11.7 - 16.0 g/dL [facility] MCH (RBC) [Entitic mass] 28.5 pg 26.0 - 34.0 pg [facility] MCHC (RBC) [Mass/Vol] 30.7 % 30.5 - 36.0 % [facility] MCV (RBC) [Entitic vol] 92.7 fL 77.0 - 99.0 fL [facility] Platelet mean volume (Bld) [Entitic vol] 8.5 fL Low 9.0 - 12.7 fL [facility] Platelets (Bld) [#/Vol] 244 10*3/uL 140 - 440 10*3/uL [facility] RBC (Bld) [#/Vol] 2.88 10*6/uL Low 3.80 - 5.2 0 10*6/uL [facility] WBC (Bld) [#/Vol] 7.5 10*3/uL 3.6 - 10.7 10*3/uL [facility] CBC WITH AUTO DIFFERENTIALon 02-26-2024 Erythrocyte distribution width (RBC) [Ratio] 14.7 % Normal 11.5-15.0 [facility] Comment on above: Performed By: #### L [id number], [id number] ####Parts Sales Associate: STEVIE ELMORE ([id number])[facility] [place] [address] Hematocrit (Bld) [Volume fraction] 26.7 % Low 35.0-47.0 [facility] Comment on above: Performed By: #### L [id number], [id number] ####Parts Sales Associate: STEVIE ELMORE ([id number])[facility] [place] [address] Hemoglobin (Bld) [Mass/Vol] 8.2 g/dL Low 11.7-16.0 [facility] Comment on above: Performed By: #### L [id number], [id number] ####Parts Sales Associate: STEVIE ELMORE ([id number])[facility] ([facility])[address] [place] [address] MCH (RBC) [Entitic mass] 28.5 pg Normal 26.0-34.0 [facility] Comment on above: Performed By: #### L [id number], [id number] ####Parts Sales Associate: STEVIE ELMORE ([phone])[facility] MCHC 30.7 % Normal 30.5-36.0 [facility] Comment on above: Performed By: #### L [id number], [id number] ####Parts Sales Associate: STEVIE ELMORE ([phone])[facility] ([facility])[address] MCV (RBC) [Entitic vol] 92.7 fL Normal 77.0-99.0 [facility] Comment on above: Performed By: #### L [id number], [id number] ####Parts Sales Associate: STEVIE ELMORE ([id number])[facility] ([facility])[address] Platelet mean volume (Bld) [Entitic vol] 8.5 fL Low 9.0-12.7 [facility] Comment on above: Performed By: #### L [id number], [id number] ####Parts Sales Associate: STEVIE ELMORE ([id number])[facility])[address] Platelets (Bld) [#/Vol] 244 10*3/uL Normal 140-440 [facility] Comment on above: Performed By: #### L [id number], [id number] ####Parts Sales Associate: STEVIE ELMORE ([phone])[facility] ([facility])[address] RBC (Bld) [#/Vol] 2.88 10*6/uL Low 3.80-5.20 [facility] [facility] Comment on above: Performed By: #### L [id number], [id number] ####Parts Sales Associate: STEVIE ELMORE ([phone])[facility]ITAL[facility]iancarlo [place] (SBHLAB)[address] WBC (Bld) [#/Vol] 7.5 10*3/uL Normal 3.6-10.7 [facility] Comment on above: Performed By: #### L [id number], [id number] ####Parts Sales Associate: STEVIE ELMORE ([phone])[facility]ITALGiancarlo [facility]ST[facility] (SBHLAB)[address] COMPREHENSIVE METABOLIC PANE Wade 02-26-2024 Albumin [Mass/Vol] 2.5 g/dL Low 3.5-5.0 [facility] Comment on above: Performed By: #### L AB103, LAB17 #### Parts Sales Associate: STEVIE ELMORE ([phone]) [facility] (SBHLAB) [address] ALP [Catalytic activity/Vol] 75 U/L Normal 38-126 [facility] Comment on above: Performed By: #### L AB103, LAB17 #### Parts Sales Associate: STEVIE ELMORE ([phone]) [facility] (SBHLAB) [address] ALT [Catalytic activity/Vol] 19 U/L Normal 0-34 [facility] Comment on above: Performed By: #### L AB103, LAB17 #### Parts Sales Associate: STEVIE ELMORE ([phone]) [facility] (SBHLAB) [address] Anion gap [Moles/Vol] 0 mmol/L Low 3-13 [facility] Comment on above: Performed By: #### L AB103, LAB17 #### Parts Sales Associate: STEVIE ELMORE ([phone]) [facility] (SBHLAB) [address] AST [Catalytic activity/Vol] 18 U/L Normal 15-46 [facility] Comment on above: Performed By: #### L AB103, LAB17 #### Parts Sales Associate: STEVIE ELMORE ([phone]) [facility] (SBHLAB) [address] Bilirubin [Mass/Vol] 0.2 mg/dL Normal 0.2-1.3 [facility] Comment on above: Performed By: #### L AB103, LAB17 #### Parts Sales Associate: STEVIE ELMORE ([phone]) [facility]ITALGiancarlo ALCOCERCHRISTUS [facility]INC[facility] PHYSICIANS MEDICAL CENTERAdenike (SBHLAB) [address] Calcium [Mass/Vol] 8.5 mg/dL Normal 8.4-10.4 [facility] Comment on above: Performed By: #### L AB103, LAB17 #### Parts Sales Associate: STEVIE ELMORE ([phone]) [facility]ITALGiancarlo AL[facility]OCERCH[facility] (SBHLAB) [address] [place] [address] [place] Chloride [Moles/Vol] 107 mmol/L Normal 98-107 [facility] Comment on above: Performed By: #### L AB103, LAB17 #### Parts Sales Associate: STEVIE ELMORE ([phone]) [facility] (SBHLAB) [address] CO2 [Moles/Vol] 30 mmol/L Normal 22-30 [facility] Comment on above: Performed By: #### L AB103, LAB17 #### Parts Sales Associate: STEVIE ELMORE ([id number]) [facility] (SBHLAB) [address] [place] [address] [place] Creatinine [Mass/Vol] 1.23 mg/dL High 0.52-1.04 [facility] Comment on above: Performed By: #### L AB103, LAB17 #### Parts Sales Associate: STEVIE ELMORE ([phone]) [facility]ITALGian[facility]lo [facility] (SBHLAB) [address] [place] [address] [place] GLOMERULAR FILTRATION RATE ML/MIN/1.73 SQ M.PREDICTED 48.6 mL/min/1.73m*2 Low >60.0 [facility] Comment on above: Result Comment: Calc ulation based on the Chronic Kidney Disease Epidemiology Collaboration (CKD-EPI) equation refit without adjustment for race Performed By: #### L AB103, LAB17 #### Parts Sales Associate: STEVIE ELMORE ([phone]) [facility]ITALGiancarlo [facility]ER[facility] (SBHLAB) [address] [place] [address] [place] Glucose [Mass/Vol] 113 mg/dL High 70-100 [facility] Comment on above: Performed By: #### L AB103, LAB17 #### Parts Sales Associate: STEVIE ELMORE ([phone]) [facility] (SBHLAB) [address] Potassium [Moles/Vol] 4.2 mmol/L Normal 3.5-5.1 [facility] Comment on above: Performed By: #### L AB103, LAB17 #### Parts Sales Associate: STEVIE ELMORE ([id number]) [facility] (SBHLAB) [address] Protein [Mass/Vol] 4.9 g/dL Low 6.3-8.2 [facility] Comment on above: Performed By: #### L AB103, LAB17 #### Parts Sales Associate: STEVIE ELMORE ([phone]) [facility] (SBHLAB) [address] Sodium [Moles/Vol] 136 mmol/L Normal 135-145 [facility] Comment on above: Performed By: #### L AB103, LAB17 #### Parts Sales Associate: STEVIE ELMORE ([id number]) [facility] (SBHLAB) [address] Urea nitrogen [Mass/Vol] 23 mg/dL High 7-17 [facility] Comment on above: Performed By: #### L AB103, LAB17 #### Parts Sales Associate: STEVIE ELMORE ([phone]) [facility] (SBHLAB) [address] Comprehensive metabolic 1998 panelon 02-26-2024 Albumin [Mass/Vol] 2.5 g/dL Low 3.5 - 5.0 g/dL [facility] ALP [Catalytic activity/Vol] 75 U/L 38 - 126 U/L [facility] ALT [Catalytic activity/Vol] 19 U/L 0 - 34 U/L [facility] Anion gap [Moles/Vol] 0 mmol/L Low 3 - 13 mmol/L [facility] AST [Catalytic activity/Vol] 18 U/L 15 - 46 U/L [facility] Bilirubin [Mass/Vol] 0.2 mg/dL 0.2 - 1 .3 mg/dL [facility] Calcium [Mass/Vol] 8.5 mg/dL 8.4 - 10. 4 mg/dL [facility] Chloride [Moles/Vol] 107 mmol/L 98 - 10 7 mmol/L [facility] CO2 [Moles/Vol] 30 mmol/L 22 - 30 mmol/L [facility] Creatinine [Mass/Vol] 1.23 mg/dL High 0.52 - 1.04 mg/dL [facility] GFR/1.73 sq M.predicted MDRD (S/P/Bld) [Vol rate/Area] 48.6 mL/min/{1.73_m2} Low - PINF [facility] Glucose [Mass/Vol] 113 mg/dL High 70 - 100 mg/dL [facility] Interpretation and review of laboratory results Abnormal [facility] Potassium [Moles/Vol] 4.2 mmol/L 3.5 - 5.1 mmol/L [facility] Protein [Mass/Vol] 4.9 g/dL Low 6.3 - 8.2 g/dL [facility] Sodium [Moles/Vol] 136 mmol/L 135 - 145 mmol/L [facility] Urea nitrogen [Mass/Vol] 23 mg/dL High 7 - 17 mg/dL [facility] Laboratory - Chemistry and C hemistry - challengeon 02-26-2024 Glucose [Mass/Vol] 207 mg/dL High 70 - 100 mg/dL [facility] Glucose [Mass/Vol] 186 mg/dL High 70 - 100 mg/dL [facility] Glucose [Mass/Vol] 97 mg/dL 70 - 100 mg/dL [facility] Glucose [Mass/Vol] 103 mg/dL High 70 - 100 mg/dL [facility] MANUAL DIFFERENTIALon 2023 ANISOCYTOSIS PRESENCE IN BLOOD BY LIGHT MICROSCOPY Slight Abnormal (none) [facility] Comment on above: Performed By: #### L [id number], [id number] ####Parts Sales Associate: STEVIE ELMORE ([phone])[facility] MEDICAL CENTERGURINDER ([facility])[address] [place] [address] BASOPHILIC STIPPLING PRESENCE IN BLOOD BY LIGHT MICROSCOPY Rare Abnormal (none) [facility] Comment on above: Performed By: #### L [id number], [id number] ####Parts Sales Associate: STEVIE ELMORE ([phone])[facility]ITALA [place] (SBHLAB)[address] CELLS COUNTED TOTAL (#) IN BLOOD 100 Normal [facility] Comment on above: Performed By: #### L [id number], [id number] ####Parts Sales Associate: STEVIE ELMORE ([phone])[facility]ITALA [address] [facility] CENTERN (SBHLAB)[address] DIFFERENTIAL METHOD Manual differential performed Normal [facility] Comment on above: Performed By: #### L [id number], [id number] ####Parts Sales Associate: STEVIE ELMORE ([phone])[facility]ITALA [facility])[address] [place] [address] [place] EOSINOPHILS (10*3/UL) IN BLOOD BY MANUAL COUNT 0.1 10*3/uL Normal 0.0-0.5 [facility] Comment on above: Performed By: #### L [id number], [id number] ####Parts Sales Associate: STEVIE ELMORE ([phone])[facility]ITALA [address]ENTERN (HLAB)[address] EOSINOPHILS TOTAL PER COUNTED LEUKOCYTES BY MANUAL COUNT 1 Normal 0-1 [facility] Comment on above: Performed By: #### L [id number], [id number] ####Parts Sales Associate: STEVIE ELMORE ([id number])[facility]ITAL[facility] [place] (SBHLAB)[address] [place] [address] [place] EOSINOPHILS/100 LEUKOCYTES IN BLOOD BY MANUAL COUNT 1 % Normal 0-6 [facility] Comment on above: Performed By: #### L [id number], [id number] ####Parts Sales Associate: STEVIE ELMORE ([id number])[facility] [place] (SBHLAB)[address] [place] [address] [place] HYPOCHROMIA (PRESENCE) IN BLOOD BY LIGHT MICROSCOPY Slight Abnormal (none) [facility] Comment on above: Performed By: #### L [id number], [id number] ####Parts Sales Associate: STEVIE ELMORE ([phone])[facility] [place] (SBHLAB)[address] LEUKOCYTE MORPHOLOGY FINDING IN BLOOD Normal Normal [facility] Comment on above: Performed By: #### L [id number], [id number] ####Parts Sales Associate: STEVIE ELMORE ([id number])[facility] [place] (SBHLAB)[address] LEUKOCYTES (10*3/UL) NUCLEATED ERYTHROCYTE ADJUST 7.5 10*3/uL Normal 3.6-10.7 [facility] Comment on above: Performed By: #### L [id number], [id number] ####Parts Sales Associate: STEVIE ELMORE ([phone])[facility] (SBHLAB)[address] [place] [address] [place] LYMPHOCYTES (10*3/UL) IN BLOOD BY MANUAL COUNT 2.0 10*3/uL Normal 1.0-4.3 [facility] Comment on above: Performed By: #### L [id number], [id number] ####Parts Sales Associate: STEVIE ELMORE ([phone])[facility]ITALA [facility] (SBHLAB)[address] [place] [address] [place] LYMPHOCYTES TOTAL PER COUNTED LEUKOCYTES BY MANUAL COUNT 26 Normal [facility] Comment on above: Performed By: #### L [id number], [id number] ####Parts Sales Associate: STEVIE ELMORE ([phone])[facility] [place] (SBHLAB)[address] [place] [address] [place] LYMPHOCYTES/100 LEUKOCYTES IN BLOOD BY MANUAL COUNT 26 % Normal 15-45 [facility] Comment on above: Performed By: #### L [id number], [id number] ####Parts Sales Associate: STEVIE ELMORE ([id number])[facility] [place] (SBHLAB)[address] [place] [address] [place] MONOCYTES (10*3/UL) IN BLOOD BY MANUAL COUNT 0.8 10*3/uL Normal 0.0-0.9 [facility] Comment on above: Performed By: #### L [id number], [id number] ####Parts Sales Associate: STEVIE ELMORE ([id number])[facility] [place] (SBHLAB)[address] [place] [address] [place] MONOCYTES TOTAL PER COUNTED LEUKOCYTES BY MANUAL COUNT 10 Normal [facility] Comment on above: Performed By: #### L [id number], [id number] ####Parts Sales Associate: STEVIE PUTNAMPERICO ([id number])[facility] [place] (SBHLAB)[address] [place] [address] [place] MONOCYTES/100 LEUKOCYTES IN BLOOD BY MANUAL COUNT 10 % Normal 5-13 [facility] Comment on above: Performed By: #### L [id number], [id number] ####Parts Sales Associate: STEVIE PUTNAMPERICO ([phone])[facility] [place] (SBHLAB)[address] [place] [address] [place] MYELOCYTES (10*3/UL) IN BLOOD BY MANUAL COUNT 0.2 10*3/uL High <=0.0 [facility] Comment on above: Performed By: #### L [id number], [id number] ####Parts Sales Associate: STEVIE ELMORE ([id number])[facility] [place] (SB[facility]AB)[address] [place] [address] [place] MYELOCYTES COUNTED BY MANUAL COUNT 3 Normal [facility] Comment on above: Performed By: #### L [id number], [id number] ####Parts Sales Associate: STEVIE ELMORE ([phone])[facility] [place] (SBHLAB)[address] [place] [address] [place] MYELOCYTES/100 LEUKOCYTES IN BLOOD BY MANUAL COUNT 3 % High <=0 [facility] Comment on above: Performed By: #### L [id number], [id number] ####Parts Sales Associate: STEVIE ELMORE ([id number])[facility] [place] (SBHLAB)[address] [place] [address] [place] NEUTROPHILS (SEGS+BANDS) (10*3/UL) BY MANUAL COUNT 4.4 10*3/uL Normal 1.8-7.0 [facility] Comment on above: Performed By: #### L [id number], [id number] ####Parts Sales Associate: STEVIE ELMORE ([id number])[facility] [place] (SBHLAB)[address] [place] [address] [place] NEUTROPHILS TOTAL PER COUNTED LEUKOCYTES BY MANUAL COUNT 59 Normal [facility] Comment on above: Performed By: #### L [id number], [id number] ####Parts Sales Associate: STEVIE ELMORE ([phone])[facility] [place] (SBHLAB)[address] [place] [address] [place] OVALOCYTES PRESENCE IN BLOOD BY LIGHT MICROSCOPY Slight Abnormal (none) [facility] Comment on above: Performed By: #### L [id number], [id number] ####Parts Sales Associate: STEVIE ELMORE ([phone])[facility] [place] (SB[facility]AB)[address] [place] [address] [place] PLATELET MORPHOLOGY IN BLOOD Normal Normal [facility] Comment on above: Performed By: #### L [id number], [id number] ####Parts Sales Associate: STEVIE ELMORE ([phone])[facility] [place] (SBHLAB)[address] [place] [address] [place] POIKILOCYTOSIS (PRESENCE) IN BLOOD BY LIGHT MICROSCOPY Slight Abnormal (none) [facility] Comment on above: Performed By: #### L [id number], [id number] ####Parts Sales Associate: STEVIE ELMORE ([phone])[facility] [place] (SBHLAB)[address] [place] [address] [place] PROMYELOCYTES (10*3/UL) IN BLOOD BY MANUAL COUNT 0.1 10*3/uL High <=0.0 [facility] Comment on above: Performed By: #### L [id number], [id number] ####Parts Sales Associate: STEVIE ELMORE ([id number])[facility] [place] (SBHLAB)[address] [place] [address] [place] PROMYELOCYTES TOTAL PER COUNTED LEUKOCYTES BY MANUAL COUNT 1 Normal [facility] Comment on above: Performed By: #### L [id number], [id number] ####Parts Sales Associate: STEVIE ELMORE ([id number])[facility] [place] (SB[facility]AB)[address] PROMYELOCYTES/100 LEUKOCYTES BY MANUAL COUNT 1 % High <=0 [facility] Comment on above: Performed By: #### L [id number], [id number] ####Parts Sales Associate: STEVIE ELMORE ([id number])[facility] [place] (SB[facility]AB)[address] SEGEMENTED NEUTROPHILS/100 LEUKOCYTES BY MANUAL COUNT 59 % Normal 38-82 [facility] Comment on above: Performed By: #### L [id number], [id number] ####Parts Sales Associate: STEVIE ELMORE ([phone])[facility] [place] (SB[facility]AB)[address] STOMATOCYTES IN BLOOD BY LIGHT MICROSCOPY Slight Abnormal (none) [facility] Comment on above: Performed By: #### L [id number], [id number] ####Parts Sales Associate: STEVIE ELMORE ([id number])[facility] [place] (SB[facility]AB)[address] [employer] CELLS IN BLOOD BY LIGHT MICROSCOPY Rare Abnormal (none) [facility] Comment on above: Performed By: #### L [id number], [id number] ####Parts Sales Associate: STEVIE ELMORE ([id number])[facility] [place] (SB[facility]AB)[address] Manual differential performe d Ql (Bld)on 02-26-2024 Anisocytosis Ql (Bld) Slight Abnormal (none) [facility] Basophilic stippling LM Ql (Bld) Rare Abnormal (none) [facility] Cells Counted Total (Bld) [#] 100 {cells} [facility] Differential Method Manual differential performed [facility] Eosinophils (Bld) [#/Vol] 0.1 10*3/uL 0.0 - 0.5 10*3/uL [facility] Eosinophils Manual 1 0 - 1 [facility] Eosinophils/100 WBC (Bld) 1 % 0 - 6 % [facility] Hypochromia Ql (Bld) Slight Abnormal (none) [facility] Leukocyte morphology finding Nom (Bld) Normal [facility] Health Lymphocytes (Bld) [#/Vol] 2.0 10*3/uL 1.0 - 4.3 10*3/uL [facility] Lymphocytes Manual 26 [facility] Health Lymphocytes/100 WBC (Bld) 26 % 15 - 45 % [facility] Health Monocytes (Bld) [#/Vol] 0.8 10*3/uL 0.0 - 0.9 10*3/uL [facility] Monocytes Manual 10 [facility] alth Monocytes/100 WBC (Bld) 10 % 5 - 13 % [facility] Myelocytes (Bld) [#/Vol] 0.2 10*3/uL High NINF - 0.0 10*3/uL [facility] Myelocytes Manual 3 [facility] ealth Myelocytes/100 WBC (Bld) 3 % High NINF - 0 % [facility] Neutrophils (Bld) [#/Vol] 4.4 10*3/uL 1.8 - 7.0 10*3/uL [facility] Neutrophils Manual 59 [facility] Ovalocytes LM Ql (Bld) Slight Abnormal (none) [facility] Platelet morphology finding Nom (Bld) Normal [facility] Poikilocytosis LM Ql (Bld) Slight Abnormal (none) [facility] Promyelocytes (Bld) [#/Vol] 0.1 10*3/uL High NINF - 0.0 10*3/uL [facility] Promyelocytes Manual 1 [facility] Promyelocytes/100 WBC (Bld) 1 % High NINF - 0 % [facility] Segmented neutrophils/100 WBC (Bld) 59 % 38 - 82 % [facility] Stomatocytes LM Ql (Bld) Slight Abnormal (none) [facility] Target cells LM Ql (Bld) Rare Abnormal (none) [facility] WBC corrected for nucl RBC (Bld) [#/Vol] 7.5 10*3/uL 3.6 - 10.7 10*3/uL [facility] No Panel Informationon 02-25 Interpretation and review of laboratory results Abnormal [facility] Interpretation and review of laboratory results Abnormal [facility] Interpretation and review of laboratory results Normal [facility] Interpretation and review of laboratory results Abnormal [facility] Radiology Study observation (narrative) [facility] Rad[facility] Study observation (narrative) [facility] Radiology Study observation (narrative) [facility] Radiology Study observation (narrative) [facility] No Panel InformationOrdered By: Alvaro Ivan on 02-26-2024 Interpretation and review of laboratory results Abnormal [facility] Progress Noteon 02-26-2024 Progress Note [id number]: Please pa jasen hi [phone]) for patient care issues. [id number]: Please page [facility] Hospitalist for any issues. Subjective: Admit Date: 02/21/2024 PCP: Lucy Quick Room#: B2-255/[id number] Giancarlo Patel is a 68 y.o. female who presents with Sphenoid sinusitis, unspecified chronicity Interval History: No overnight issues. Lying in bed , appears weak, remains on 4 L nasal cannula. Reached out to ID service, awaiting urine culture , compliant with antibiotics denies chest pain, sob, abdominal pain, nausea, vomiting, diarrhea, constipation, fevers, or chills. Adult diet Regular; 4 carb choices (60 gm/meal) 24HR INTAKE/OUTPUT: Intake/Output Summary (Last 24 hours) at 02/26/2024 1238 Last data filed at 02/26/2024 0800 Gross per 24 hour Intake 660 ml Output -- Net 660 ml LABS: CBC: Recent Labs 02/24/2421902/25/2422402/26/24 0210 WBC 8.3 6.5 7.5 RBC 3.03* 2.88* 2.88* HGB 8.6* 8.1* 8.2* HCT 27.7* 26.5* 26.7* MCV 91.4 92.0 92.7 RDW 15.1* 14.8 14.7 PLT 196 210 244 BMP: Recent Labs 02/24/2421902/25/2422402/26/24 0209 NA 135 135 136 K 3.4* 4.0 4.2 CL 102 106 107 CO2 30 28 30 BUN 33* 28* 23* CREATININE 1.42* 1.25* 1.23* GLUCOSE 105* 149* 113* CALCIUM 8.5 8.3* 8.5 ANIONGAP 3 1* 0* LIVER PROFILE: Recent Labs 02/24/24 0220 02/25/24 0225 02/26/24 0209 AST 27 18 18 ALT 24 20 19 BILITOT 0.3 0.2 0.2 ALKPHOS 66 63 75 PROT 5.2* 4.7* 4.9* PT/INR: No results for input(s): PROTIME, INR in the last 72 hours. CARDIAC ENZYMES: No results for input(s): TROPONINI in the last 72 hours. Procalcitonin: No results found for: PROCAL Objective: Vitals: BP 152/74 (BP Location: Right arm, Patient Position: Sitting) Pulse 81 Temp 36.8 ?C (98.2 ?F) (Temporal) Resp 17 Ht 5' 5 (1.651 m) Wt 249 lb 6.4 oz (113 kg) SpO2 100% BMI 41.50 kg/m? Pulse Ox: SpO2 Av % Min: 100 % Max: 100 % Supplemental O2: O2 Flow Rate (L/min): 4 L/min 02/26/2024 General appearance: No apparent distress, appears stated age, HEENT: No JVD eyes: No scleral icterus Oral: Tongue is semi-moist Cardiovascular: S1/S2 heard, RRR Respiratory: Diminished breath sounds bilaterally with mild wheeze at the bases Abdomen: Soft, obese, non-tender, non-distended bowel sounds positive Musculoskeletal: No obvious deformities seen, ankle edema Skin: No visible rashes or lesions. Medications: aspirin, 81 mg, Oral, Daily atorvastatin, 40 mg, Oral, Daily cyanocobalamin, 1,000 mcg, Oral, Daily enoxaparin, 40 mg, SubCUTAneous, Daily ertapenem, 1,000 mg, IntraVENous, q24h famotidine, 40 mg, Oral, Daily insulin glargine, 50 Units, SubCUTAneous, BID insulin lispro, 0-12 Units, SubCUTAneous, TID WC And insulin lispro, 0-12 Units, SubCUTAneous, Nightly isosorbide mononitrate ER, 30 mg, Oral, Daily ketoconazole, , Topical, BID methenamine hippurate, 1 g, Oral, BID metoprolol succinate XL, 25 mg, Oral, Daily potassium chloride CR, 10 mEq, Oral, Daily ranolazine, 1,000 mg, Oral, BID senna-docusate sodium, 1 tablet, Oral, BID venlafaxine XR, 75 mg, Oral, Daily Assessment Acute metabolic encephalopathy due to UTI, improving, geriatrics following Severe sepsis (fever, tachycardia, leukocytosis, lactic acidosis). Resolved, with IV antibiotics ESBL- E coli bacteremia due to UTI, will need 2 weeks of ertapenem per ID service, awaiting urine cx Pyuria with UTI. Sphenoid sinusitis Elevated troponin due to demand ischemia Chronic problems Stage II pressure ulcer left buttock-wound care Chronic resp failure. On 4 L of oxygen HFpEF Hypertension Obesity disorder. Poorly controlled DM. Plan Geriatrics consult reviewed, continue with Seroquel as needed Possible return to senior care facility, she refuses PT and OT Will possibly need PICC line once blood cultures or sterile, ID recommends 2 weeks of ertapenem -am labs, replace lytes prn -increase activity Diet Adult diet Regular; 4 carb choices (60 gm/meal) DVT Prophylaxis [x] Lovenox, [] Heparin, [] SCDs, [] Ambulation [] Already on Anticoagulation GI Prophylaxis [] PPI, [] H2 Ирина, [] Carafate, [] Diet/Tube Feeds Code Status Full Code Disposition Patient requires continued admission due to sepsis MDM [] Low, [] Moderate,[x] High Patient's risk as above Total time spent (which include face to face and non face to face encounters) : minutes Toxic drug monitoring/narrow therapeutic index drug monitoring : # Drug name : Ertapenem # Route administered : IV # Method of monitoring :daily labs Extended Emergency Contact Information Primary Emergency Contact: Alexandro Cote Mobile Relation: Daughter Preferred language: M[employer]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 Advance Directive: Full Code Discharge planning: TBD Ann Reed MD Division of Hospitalist Medicine [place]patient Medical Services[place] [place] [facility] Bacteria identified Cx Nom ( U)Ordered By: Janelle Morton on 02-25-2024 Interpretation and review of laboratory results Abnormal [facility] CBC W Auto Differential pane l (Bld)Ordered By: Shmuel Izaguirre on 02-25-2024 Basophils (Bld) [#/Vol] 0.0 10*3/uL 0.0 - 0.2 10*3/uL [facility] Basophils/100 WBC (Bld) 0.5 % 0.0 - 2.0 % [facility] Eosinophils (Bld) [#/Vol] 0.2 10*3/uL 0.0 - 0.5 10*3/uL [facility] Eosinophils/100 WBC (Bld) 2.8 % 0.0 - 6.0 % [facility] Erythrocyte distribution width (RBC) [Ratio] 14.8 % 11.5 - 15.0 % [facility] Hematocrit (Bld) [Volume fraction] 26.5 % Low 35.0 - 47.0 % [facility] Hemoglobin (Bld) [Mass/Vol] 8.1 g/dL Low 11.7 - 16.0 g/dL [facility] Immature granulocytes (Bld) [#/Vol] 0.3 10*3/uL High NINF - 0.1 10*3/uL [facility] Immature granulocytes/100 WBC (Bld) 4.5 % High 0.0 - 2.0 % [facility] Interpretation and review of laboratory results Abnormal [facility] Lymphocytes (Bld) [#/Vol] 2.0 10*3/uL 1.0 - 4.3 10*3/uL [facility] Lymphocytes/100 WBC (Bld) 30.8 % 15.0 - 45.0 % [facility] MCH (RBC) [Entitic mass] 28.1 pg 26.0 - 34.0 pg [facility] MCHC (RBC) [Mass/Vol] 30.6 % 30.5 - 36.0 % [facility] MCV (RBC) [Entitic vol] 92.0 fL 77.0 - 99.0 fL [facility] Monocytes (Bld) [#/Vol] 0.7 10*3/uL 0.0 - 0.9 10*3/uL [facility] Monocytes/100 WBC (Bld) 10.0 % 5.0 - 13.0 % [facility] Neutrophils (Bld) [#/Vol] 3.3 10*3/uL 1.8 - 7.5 10*3/uL [facility] Neutrophils/100 WBC (Bld) 51.4 % 38.0 - 82.0 % [facility] Nucleated RBC/100 WBC (Bld) [Ratio] 0.0 % [facility] Platelet mean volume (Bld) [Entitic vol] 8.6 fL Low 9.0 - 12.7 fL [facility] Platelets (Bld) [#/Vol] 210 10*3/uL 140 - 440 10*3/uL [facility] RBC (Bld) [#/Vol] 2.88 10*6/uL Low 3.80 - 5.2 0 10*6/uL [facility] WBC (Bld) [#/Vol] 6.5 10*3/uL 3.6 - 10.7 10*3/uL [facility] CBC WITH AUTO DIFFERENTIALon 02-25-2024 Basophils (Bld) [#/Vol] 0.0 10*3/uL Normal 0.0-0.2 [facility] Comment on above: Performed By: #### L AB103, LAB17 #### Parts Sales Associate: STEVIE ELMORE ([phone]) [facility] [address] Basophils/100 WBC (Bld) 0.5 % Normal 0.0-2.0 [facility] Comment on above: Performed By: #### L AB103, LAB17 #### Parts Sales Associate: STEVIE ELMORE ([id number]) [facility] (SBAB) [address] Eosinophils (Bld) [#/Vol] 0.2 10*3/uL Normal 0.0-0.5 [facility] Comment on above: Performed By: #### L AB103, LAB17 #### Parts Sales Associate: STEVIE ELMORE ([id number]) [facility] [address] Eosinophils/100 WBC (Bld) 2.8 % Normal 0.0-6.0 [facility] Comment on above: Performed By: #### L AB103, LAB17 #### Parts Sales Associate: STEVIE ELMORE ([phone]) [facility] (SBHL[facility]) [address] Erythrocyte distribution width (RBC) [Ratio] 14.8 % Normal 11.5-15.0 [facility] Comment on above: Performed By: #### L AB103, LAB17 #### Parts Sales Associate: STEVIE MOYASuPERICO ([id number]) [facility] [address] Hematocrit (Bld) [Volume fraction] 26.5 % Low 35.0-47.0 [facility] Comment on above: Performed By: #### L AB103, LAB17 #### Parts Sales Associate: STEVIE MOYAFAHAD ([phone]) [facility] [address] Hemoglobin (Bld) [Mass/Vol] 8.1 g/dL Low 11.7-16.0 [facility] Comment on above: Performed By: #### L AB103, LAB17 #### Parts Sales Associate: STEVIE MOYAFHAAD ([phone]) [facility] [address] IMMATURE GRANS % 4.5 % High 0.0-2.0 [facility] Comment on above: Performed By: #### L AB103, LAB17 #### Parts Sales Associate: STEVIE PUTNAMPERICO ([phone]) [facility] [address] IMMATURE GRANS ABSOLUTE 0.3 10*3/uL High <0.1 [facility] Comment on above: Performed By: #### L AB103, LAB17 #### Parts Sales Associate: STEVIE PUTNAMPERICO ([phone]) [facility] [place] [facility] [address] [place] [address] [place] Lymphocytes (Bld) [#/Vol] 2.0 10*3/uL Normal 1.0-4.3 [facility] Comment on above: Performed By: #### L AB103, LAB17 #### Parts Sales Associate: STEVIE MOSQUEDACER ([phone]) [facility] [address] [place] [address] [place] Lymphocytes/100 WBC (Bld) 30.8 % Normal 15.0-45.0 [facility] Comment on above: Performed By: #### L AB103, LAB17 #### Parts Sales Associate: STEVIE PUTNAMPERICO ([phone]) [facility] ([facility] [address] MCH (RBC) [Entitic mass] 28.1 pg Normal 26.0-34.0 [facility] Comment on above: Performed By: #### L AB103, LAB17 #### Parts Sales Associate: STEVIE PUTNAMPERICO ([phone]) [facility] ([facility] [address] MCHC 30.6 % Normal 30.5-36.0 [facility] Comment on above: Performed By: #### L AB103, LAB17 #### Parts Sales Associate: STEVIE PTUNAMPERICO ([phone]) [facility] [address] MCV (RBC) [Entitic vol] 92.0 fL Normal 77.0-99.0 [facility] Comment on above: Performed By: #### L AB103, LAB17 #### Parts Sales Associate: STEVIE PUTNAMPERICO ([id number]) [facility] [address] Monocytes (Bld) [#/Vol] 0.7 10*3/uL Normal 0.0-0.9 [facility] Comment on above: Performed By: #### L AB103, LAB17 #### Parts Sales Associate: STEVIE ELMORE ([phone]) [facility] ([facility] [address] Monocytes/100 WBC (Bld) 10.0 % Normal 5.0-13.0 [facility] Comment on above: Performed By: #### L AB103, LAB17 #### Parts Sales Associate: STEVIE ELMORE ([phone]) [facility] ([facility] [address] NEUTROPHILS ABSOLUTE 3.3 10*3/uL Normal 1.8-7.5 [facility] Comment on above: Performed By: #### L AB103, LAB17 #### Parts Sales Associate: STEVIE ELMORE ([phone]) [facility] [place] [facility] [address] Neutrophils/100 WBC (Bld) 51.4 % Normal 38.0-82.0 [facility] Comment on above: Performed By: #### L AB103, LAB17 #### Parts Sales Associate: STEVIE ELMORE ([id number]) [facility] [address] NRBC 0.0 /100 WBCs Normal 0.0-2.0 [facility] Comment on above: Performed By: #### L AB103, LAB17 #### Parts Sales Associate: STEVIE ELMORE ([phone]) [facility] [address] Platelet mean volume (Bld) [Entitic vol] 8.6 fL Low 9.0-12.7 [facility] Comment on above: Performed By: #### L AB103, LAB17 #### Parts Sales Associate: STEVIE ELMORE ([phone]) [facility] [place] [facility] [address] Platelets (Bld) [#/Vol] 210 10*3/uL Normal 140-440 [facility] Comment on above: Performed By: #### L AB103, LAB17 #### Parts Sales Associate: STEVIE ELMORE ([id number]) [facility] [place] [facility] [address] RBC (Bld) [#/Vol] 2.88 10*6/uL Low 3.80-5.20 [facility] Comment on above: Performed By: #### L AB103, LAB17 #### Parts Sales Associate: STEVIE ELMORE ([phone]) [facility] [place] [facility] [address] WBC (Bld) [#/Vol] 6.5 10*3/uL Normal 3.6-10.7 [facility] Comment on above: Performed By: #### L AB103, LAB17 #### Parts Sales Associate: STEVIE ELMORE ([id number]) [facility] ([facility] [address] COMPLETE URINALYSISon 2023 AMORPHOUS CRYSTALS (#/HPF) IN URINE Few Abnormal Negative [facility] Comment on above: Performed By: #### L AB103, LAB17 #### Parts Sales Associate: STEVIE ELMORE ([phone]) [facility] [address] BACTERIA (#/HPF) IN URINE Few Abnormal Negative [facility] Comment on above: Performed By: #### L AB103, LAB17 #### Parts Sales Associate: STEVIE ELMORE ([phone]) [facility] [address] BILIRUBIN, TOTAL PRESENCE IN URINE Negative Normal Negative [facility] Comment on above: Performed By: #### L AB103, LAB17 #### Parts Sales Associate: STEVIE ELMORE ([id number]) [facility] [place] [facility] [address] Clarity (U) Cloudy Abnormal Clear [facility] Comment on above: Performed By: #### L AB103, LAB17 #### Parts Sales Associate: STEVIE ELMORE ([phone]) [facility] [place] [facility] [address] Color (U) Yellow Normal Lt. Yellow [facility] Comment on above: Performed By: #### L AB103, LAB17 #### Parts Sales Associate: STEVIE ELMORE ([phone]) [facility] ([facility] [address] [place] [address] [place] GLUCOSE (MG/DL) IN URINE Normal Normal Normal (<70) [facility] Comment on above: Performed By: #### L AB103, LAB17 #### Parts Sales Associate: STEVIE ELMORE ([phone]) [facility] ([facility]) [address] HEMOGLOBIN PRESENCE IN URINE Negative Normal Negative [facility] Comment on above: Performed By: #### L AB103, LAB17 #### Parts Sales Associate: STEVIE ELMORE ([phone]) [facility] ([facility]) [address] Ketones Ql (U) Negative Normal Negative [facility] Comment on above: Performed By: #### L AB103, LAB17 #### Parts Sales Associate: STEVIE ELMORE ([phone]) [facility] ([facility]) [address] LEUKOCYTE ESTERASE PRESENCE IN URINE BY TEST STRIP 500 Ha/uL Abnormal Negative [facility] Comment on above: Performed By: #### L AB103, LAB17 #### Parts Sales Associate: STEVIE ELMORE ([id number]) [facility] ([facility]) [address] [place] [address] [place] MUCUS (#/LPF) IN URINE SEDIMENT Few Normal Negative [facility] Comment on above: Performed By: #### L AB103, LAB17 #### Parts Sales Associate: STEVIE ELMORE ([id number]) [facility] ([facility]) [address] [place] [address] [place] NITRITE PRESENCE IN URINE Negative Normal Negative [facility] Comment on above: Performed By: #### L AB103, LAB17 #### Parts Sales Associate: STEVIE ELMORE ([id number]) [facility] ([facility]) [address] [place] [address] [place] NON-SQUAMOUS EPITHELIAL (#/HPF) IN URINE 0-2 Abnormal Negative [facility] Comment on above: Performed By: #### L AB103, LAB17 #### Parts Sales Associate: STEVIE ELMORE ([phone]) [facility] ([facility]) [address] pH (U) 6.0 [pH] Normal 5.0-8.0 [facility] Comment on above: Performed By: #### L AB103, LAB17 #### Parts Sales Associate: STEVIE ELMORE ([id number]) [facility] ([facility] [address] Protein (U) [Mass/Vol] 30 mg/dL Abnormal Negative [facility] Comment on above: Performed By: #### L AB103, LAB17 #### Parts Sales Associate: STEVIE ELMORE ([id number]) [facility] [address] [place] [address] [place] RBC (#/HPF) IN URINE SEDIMENT 0-2 Normal 0-2 [facility] Comment on above: Performed By: #### L AB103, LAB17 #### Parts Sales Associate: STEVIE ELMORE ([phone]) [facility] ([facility] [address] Specific gravity (U) [Rel density] 1.018 Normal 1.005-1.030 [facility] Comment on above: Performed By: #### L AB103, LAB17 #### Parts Sales Associate: STEVIE ELMORE ([id number]) [facility] [address] SQUAMOUS EPITHELIAL CELLS (#/HPF) IN URINE SEDIMENT 11-25 Abnormal 3-5 [facility] Comment on above: Performed By: #### L AB103, LAB17 #### Parts Sales Associate: STEVIE ELMORE ([phone]) [facility] [address] [place] [address] [place] UROBILINOGEN (MG/DL) IN URINE Normal Normal Normal (0-1) [facility] Comment on above: Performed By: #### L AB103, LAB17 #### Parts Sales Associate: STEVIE ELMORE ([phone]) [facility] [address] [place] [address] [place] WBC (LEUKOCYTE) (#/HPF) IN URINE SEDIMENT 11-25 Abnormal 0-5 [facility] Comment on above: Performed By: #### L AB103, LAB17 #### Parts Sales Associate: STEVIE ELMORE ([id number]) [facility] [place] ([facility]) [address] COMPREHENSIVE METABOLIC PANE Wade 02-25-2024 Albumin [Mass/Vol] 2.3 g/dL Low 3.5-5.0 [facility] Comment on above: Performed By: #### L AB103, LAB17 #### Parts Sales Associate: STEVIE ELMORE ([phone]) [facility] [place] ([facility]) [address] ALP [Catalytic activity/Vol] 63 U/L Normal 38-126 [facility] Comment on above: Performed By: #### L AB103, LAB17 #### Parts Sales Associate: STEVIE ELMORE ([phone]) [facility] [place] ([facility]) [address] [place] [address] [place] ALT [Catalytic activity/Vol] 20 U/L Normal 0-34 [facility] Comment on above: Performed By: #### L AB103, LAB17 #### Parts Sales Associate: STEVIE ELMORE ([id number]) [facility] [place] ([facility]) [address] Anion gap [Moles/Vol] 1 mmol/L Low 3-13 [facility] Comment on above: Performed By: #### L AB103, LAB17 #### Parts Sales Associate: STEVIE ELMORE ([phone]) [facility] [place] ([facility]) [address] [place] [address] [place] AST [Catalytic activity/Vol] 18 U/L Normal 15-46 [facility] Comment on above: Performed By: #### L AB103, LAB17 #### Parts Sales Associate: STEVIE ELMORE ([id number]) [facility] [place] (SBHL[facility]) [address] [place] [address] [place] Bilirubin [Mass/Vol] 0.2 mg/dL Normal 0.2-1.3 [facility] Comment on above: Performed By: #### L AB103, LAB17 #### Parts Sales Associate: STEVIE ELMORE ([phone]) [facility] ([facility]) [address] Calcium [Mass/Vol] 8.3 mg/dL Low 8.4-10.4 [facility] Comment on above: Performed By: #### L AB103, LAB17 #### Parts Sales Associate: STEVIE ELMORE ([phone]) [facility] ([facility]) [address] Chloride [Moles/Vol] 106 mmol/L Normal 98-107 [facility] Comment on above: Performed By: #### L AB103, LAB17 #### Parts Sales Associate: STEVIE ELMORE ([id number]) [facility] ([facility]) [address] CO2 [Moles/Vol] 28 mmol/L Normal 22-30 [facility] Comment on above: Performed By: #### L AB103, LAB17 #### Parts Sales Associate: STEVIE ELMORE ([phone]) [facility] (HLAB) [address] Creatinine [Mass/Vol] 1.25 mg/dL High 0.52-1.04 [facility] Comment on above: Performed By: #### L AB103, LAB17 #### Parts Sales Associate: STEVIE ELMORE ([id number]) [facility] ([facility]) [address] [place] [address] [place] GLOMERULAR FILTRATION RATE ML/MIN/1.73 SQ M.PREDICTED 47.6 mL/min/1.73m*2 Low >60.0 [facility] Comment on above: Result Comment: Calc ulation based on the Chronic Kidney Disease Epidemiology Collaboration (CKD-EPI) equation refit without adjustment for race Performed By: #### L AB103, LAB17 #### Parts Sales Associate: STEVIE [id number]) [facility] [place] ([facility]) [address] Glucose [Mass/Vol] 149 mg/dL High 70-100 [facility] Comment on above: Performed By: #### L AB103, LAB17 #### Parts Sales Associate: STEVIE ELMORE ([phone]) [facility] ([facility]) [address] Potassium [Moles/Vol] 4.0 mmol/L Normal 3.5-5.1 [facility] Comment on above: Performed By: #### L AB103, LAB17 #### Parts Sales Associate: STEVIE ELMORE ([phone]) [facility] [place] ([facility]) [address] Protein [Mass/Vol] 4.7 g/dL Low 6.3-8.2 [facility] Comment on above: Performed By: #### L AB103, LAB17 #### Parts Sales Associate: STEVIE ELMORE ([phone]) [facility] [place] ([facility]) [address] Sodium [Moles/Vol] 135 mmol/L Normal 135-145 [facility] Comment on above: Performed By: #### L AB103, LAB17 #### Parts Sales Associate: STEVIE ELMORE ([phone]) [facility] [place] ([facility]) [address] [place] [address] [place] Urea nitrogen [Mass/Vol] 28 mg/dL High 7-17 [facility] Comment on above: Performed By: #### L AB103, LAB17 #### Parts Sales Associate: STEVIE ELMORE ([phone]) [facility] ([facility]) [address] Comprehensive metabolic 1998 panelon 02-25-2024 Albumin [Mass/Vol] 2.3 g/dL Low 3.5 - 5.0 g/dL [facility] ALP [Catalytic activity/Vol] 63 U/L 38 - 126 U/L [facility] ALT [Catalytic activity/Vol] 20 U/L 0 - 34 U/L [facility] Anion gap [Moles/Vol] 1 mmol/L Low 3 - 13 mmol/L [facility] AST [Catalytic activity/Vol] 18 U/L 15 - 46 U/L [facility] Bilirubin [Mass/Vol] 0.2 mg/dL 0.2 - 1 .3 mg/dL [facility] Calcium [Mass/Vol] 8.3 mg/dL Low 8.4 - 10. 4 mg/dL [facility] Chloride [Moles/Vol] 106 mmol/L 98 - 10 7 mmol/L [facility] CO2 [Moles/Vol] 28 mmol/L 22 - 30 mmol/L [facility] Creatinine [Mass/Vol] 1.25 mg/dL High 0.52 - 1.04 mg/dL [facility] GFR/1.73 sq M.predicted MDRD (S/P/Bld) [Vol rate/Area] 47.6 mL/min/{1.73_m2} Low - PINF [facility] Glucose [Mass/Vol] 149 mg/dL High 70 - 100 mg/dL [facility] Interpretation and review of laboratory results Abnormal [facility] Potassium [Moles/Vol] 4.0 mmol/L 3.5 - 5.1 mmol/L [facility] Protein [Mass/Vol] 4.7 g/dL Low 6.3 - 8.2 g/dL [facility] Sodium [Moles/Vol] 135 mmol/L 135 - 145 mmol/L [facility] Urea nitrogen [Mass/Vol] 28 mg/dL High 7 - 17 mg/dL [facility] Laboratory - Chemistry and C hemistry - challengeon 02-25-2024 Glucose [Mass/Vol] 158 mg/dL High 70 - 100 mg/dL [facility] Glucose [Mass/Vol] 161 mg/dL High 70 - 100 mg/dL [facility] Glucose [Mass/Vol] 117 mg/dL High 70 - 100 mg/dL [facility] Glucose [Mass/Vol] 105 mg/dL High 70 - 100 mg/dL [facility] Laboratory - Microbiology an d Antimicrobial susceptibilityOrdered By: Janelle Morton on 02-25-2024 Bacteria identified Cx Nom (U) Normal urogenital krys present [facility] Bacteria identified Cx Nom (U) >100,000 CFU/mL Escherichia coli Abnormal [facility] Bacteria identified Cx Nom (U) >100,000 CFU/mL Enterococcus faecalis Abnormal [facility] No Panel Informationon 02-24 Interpretation and review of laboratory results Abnormal [facility] Interpretation and review of laboratory results Abnormal [facility] Interpretation and review of laboratory results Abnormal [facility] Interpretation and review of laboratory results Abnormal [facility] Radiology [facility]narrative[facility]narrative) [facility] (narrative[facility] Progress Noteon 02-25-2024 Progress Note [facility] Medical [facility] Geriatric Medicine Inpatient Consult Service Admission Date: 02/21/2024 Assessment Principal Problem: Sphenoid sinusitis, unspecified chronicity Plan Metabolic encephalopathy --improving. No use of PRN Seroquel. --Etiology likely related to bacteremia/UTI, change of environment --Encourage PO intake, time up in chair, family visits, supervised ambulation, and sleep hygiene --If agitated, assess for and consider treating for pain --QTc= 448 --No antipsychotic unless patient is danger to self/others/treatment --continue PRN melatonin at HS --continue Seroquel 12.5mg BID PRN for agitation --Monitor for constipation/urinary retention - last BM 02/23 --Possible medication contributions: -avoid hydroxyzine if possible as may worsen cognition due to anticholinergic effects Bipolar disorder -per patient's daughter has been under reasonable control, does not routinely have hallucinations Depression -continue Effexor Functional impairment/bedbound/hoy er dependent -plan to return to facility, likely LTC -patient refused PT/OT Borderline B12 -start B12 PO daily Follow-up: will follow with you Subjective Chief Complaint: fatigue, not sleeping Geriatrics consulted for Delirium HPI- The patient is new to me but seen by the Geriatric Inpatient Consult team. 68 year old with PMH of CHF, COPD, DM who presented to the hospital on 02/21/24 with complaints of change in mental status. She resides at [facility]. Family reported has had several hospitalizations with similar symptoms particularly when associated UTI and bloodstream infection. Medical record shows several ED visits for change in mental status and hallucinations over past 6-9 months. History of bipolar disorder that has been under control. Interval History: Remains on general medical/surgical floor . -patient denies pain. Reports she feels tired. States she gets woken up during the night. States she tried therapy at facility and didn't work. -Nursing reports patient has flat affect. No hallucinations reported. Review of Systems Constitutional: Positive for fatigue. Negative for fever. Respiratory: Negative for cough and shortness of breath. Gastrointestinal: Negative for abdominal pain, constipation, diarrhea and nausea. Genitourinary: Negative for difficulty urinating. Neurological: Positive for weakness. Negative for dizziness. Psychiatric/Behavioral: Positive for sleep disturbance. Objective BP 140/67 (BP Location: Right arm, Patient Position: Lying) Pulse 82 Temp 36.2 ?C (97.2 ?F) (Temporal) Resp 18 Ht 5' 5 (1.651 m) Wt 249 lb 6.4 oz (113 kg) SpO2 100% BMI 41.50 kg/m? Intake/Output Summary (Last 24 hours) at 02/25/2024 1648 Last data filed at 02/25/2024 0912 Gross per 24 hour Intake 200 ml Output -- Net 200 ml Wt Readings from Last 3 Encounters: 02/25/24 249 lb 6.4 oz (113 kg) 10/19/21 279 lb (127 kg) 10/18/21 279 lb (127 kg) Current Facility-Administered Medications: acetaminophen (Tylenol) tablet 650 mg, 650 mg, Oral, q6h PRN OR acetaminophen (Tylenol) suppository 650 mg, 650 mg, Rectal, q6h PRN, Shmuel Trevino MD aspirin EC tablet 81 mg, 81 mg, Oral, Daily, Rob Lai MD, 81 mg at 02/25/24 09 atorvastatin (Lipitor) tablet 40 mg, 40 mg, Oral, Daily, Rob Lai MD, 40 mg at 02/25/24 0911 bisacodyl (Dulcolax) EC tablet 5 mg, 5 mg, Oral, Daily PRN, Rob Lai MD dextrose 5 % infusion, 100 mL/hr, IntraVENous, PRN, Shmuel Trevino MD dextrose 50 % solution 12.5 g, 12.5 g, IntraVENous, PRN, Shmuel Trevino MD enoxaparin (Lovenox) syringe 40 mg, 40 mg, SubCUTAneous, Daily, Shmuel Trevino MD, 40 mg at 02/25/24 09 ertapenem (INVanz) 1,000 mg in sodium chloride 0.9 % 50 mL IVPB Mini-Bag Plus, 1,000 mg, IntraVENous, q24h, Clare Del Cid MD, Stopped at 02/25/24 0942 famotidine (Pepcid) tablet 40 mg, 40 mg, Oral, Daily, Rob Lai MD, 40 mg at 02/25/24 0911 glucagon (human recombinant) injection 1 mg, 1 mg, IntraMUSCular, PRN, Shmeul Trevino MD glucose oral gel 15 g, 15 g, Oral, PRN, Shmuel Trevino MD insulin glargine (Lantus) injection 50 Units, 50 Units, SubCUTAneous, BID, Shmuel Trevino MD, 50 Units at 02/25/24 09 Insulin Lispro (Humalog) injection 0-12 Units, 0-12 Units, SubCUTAneous, TID WC, 2 Units at 02/24/24 1733 AND Insulin Lispro (Humalog) injection 0-12 Units, 0-12 Units, SubCUTAneous, Nightly, Shmuel Trevino MD, 4 Units at 02/24/24 202 ipratropium-albuterol (Duo-Neb) 0.5-2.5 mg/3 mL nebulizer solution 3 mL, 3 mL, Nebulization, q4h PRN, Shmuel Trevino MD isosorbide mononitrate ER (Imdur) 24 hr tablet 30 mg, 30 mg, Oral, Daily, Rob Lai MD, 30 mg at 02/25/24 0911 ketoconazole (NIZOral) 2 % cream, , Topical, BID, Manisha Tao HAM DOCTOR - [employer] ACTOR, Given at 02/25/24 09 methenamine hippurate (Hiprex) tablet 1 g, 1 g, Oral, BID, Rob Lai MD, 1 g at 02/25/24 0913 metoprolol succinat (more content not included)... Normal [facility] Progress Note [id number]: Please pa [facility] ([phone]) for patient care issues. [phone]: Please page [facility] any issues. Subjective: Admit Date: 02/21/2024 PCP: Lucy Quick Room#: B2-255/[id number] Giancarlo Patel is a 68 y.o. female who presents with Sphenoid sinusitis, unspecified chronicity Interval History: No overnight issues. Lying in bed , appears weak, remains on 4 L nasal cannula. Complains of sinus congestion , awaiting blood cultures to be negative to get a PICC line denies chest pain, sob, abdominal pain, nausea, vomiting, diarrhea, constipation, fevers, or chills. Adult diet Regular; 4 carb choices (60 gm/meal) 24HR INTAKE/OUTPUT: Intake/Output Summary (Last 24 hours) at 02/25/2024 1257 Last data filed at 02/25/2024 0912 Gross per 24 hour Intake 200 ml Output -- Net 200 ml LABS: CBC: Recent Labs 02/23/2432102/24/2421902/25/24224 WBC 7.5 8.3 6.5 RBC 3.08* 3.03* 2.88* HGB 8.7* 8.6* 8.1* HCT 28.1* 27.7* 26.5* MCV 91.2 91.4 92.0 RDW 15.6* 15.1* 14.8 PLT 182 196 210 BMP: Recent Labs 02/23/2432102/24/2421902/25/24224 NA 135 135 135 K 3.7 3.4* 4.0 CL 101 102 106 CO2 28 30 28 BUN 35* 33* 28* CREATININE 1.62* 1.42* 1.25* GLUCOSE 111* 105* 149* CALCIUM 8.1* 8.5 8.3* ANIONGAP 6 3 1* LIVER PROFILE: Recent Labs 02/23/2432102/24/2421902/25/24224 AST 23 27 18 ALT 20 24 20 BILITOT 0.4 0.3 0.2 ALKPHOS 70 66 63 PROT 5.1* 5.2* 4.7* PT/INR: No results for input(s): PROTIME, INR in the last 72 hours. CARDIAC ENZYMES: No results for input(s): TROPONINI in the last 72 hours. Procalcitonin: No results found for: PROCAL Objective: Vitals: BP 140/67 (BP Location: Right arm, Patient Position: Lying) Pulse 82 Temp 36.2 ?C (97.2 ?F) (Temporal) Resp 18 Ht 5' 5 (1.651 m) Wt 249 lb 6.4 oz (113 kg) SpO2 100% BMI 41.50 kg/m? Pulse Ox: SpO2 Av % Min: 100 % Max: 100 % Supplemental O2: O2 Flow Rate (L/min): 4 L/min 02/25/2024 General appearance: No apparent distress, appears stated age, HEENT: No JVD eyes: No scleral icterus Oral: Tongue is semi-moist Cardiovascular: S1/S2 heard, RRR Respiratory: Diminished breath sounds bilaterally with mild wheeze at the bases Abdomen: Soft, obese, non-tender, non-distended bowel sounds positive Musculoskeletal: No obvious deformities seen, ankle edema Skin: No visible rashes or lesions. Medications: aspirin, 81 mg, Oral, Daily atorvastatin, 40 mg, Oral, Daily enoxaparin, 40 mg, SubCUTAneous, Daily ertapenem, 1,000 mg, IntraVENous, q24h famotidine, 40 mg, Oral, Daily insulin glargine, 50 Units, SubCUTAneous, BID insulin lispro, 0-12 Units, SubCUTAneous, TID WC And insulin lispro, 0-12 Units, SubCUTAneous, Nightly isosorbide mononitrate ER, 30 mg, Oral, Daily ketoconazole, , Topical, BID methenamine hippurate, 1 g, Oral, BID metoprolol succinate XL, 25 mg, Oral, Daily potassium chloride CR, 10 mEq, Oral, Daily ranolazine, 1,000 mg, Oral, BID senna-docusate sodium, 1 tablet, Oral, BID venlafaxine XR, 75 mg, Oral, Daily Assessment Acute metabolic encephalopathy due to UTI, improving, geriatrics following Severe sepsis (fever, tachycardia, leukocytosis, lactic acidosis). Resolved, with IV antibiotics ESBL- E coli bacteremia due to UTI, will need 2 weeks of ertapenem per ID service Pyuria with UTI. Sphenoid sinusitis Elevated troponin due to demand ischemia Chronic problems Stage II pressure ulcer left buttock-wound care Chronic resp failure. On 4 L of oxygen HFpEF Hypertension Obesity disorder. Poorly controlled DM. Plan Geriatrics consult reviewed, continue with Seroquel Possible return to senior care facility, she refuses PT and OT Will possibly need PICC line once blood cultures or sterile, ID recommends 2 weeks of ertapenem -am labs, replace lytes prn -increase activity Diet Adult diet Regular; 4 carb choices (60 gm/meal) DVT Prophylaxis [x] Lovenox, [] Heparin, [] SCDs, [] Ambulation [] Already on Anticoagulation GI Prophylaxis [] PPI, [] H2 Ирина, [] Carafate, [] Diet/Tube Feeds Code Status Full Code Disposition Patient requires continued admission due to sepsis MDM [] Low, [] Moderate,[x] High Patient's risk as above Total time spent (which include face to face and non face to face encounters) : minutes Toxic drug monitoring/narrow therapeutic index drug monitoring : # Drug name : Ertapenem # Route administered : IV # Method of monitoring :daily labs Extended Emergency Contact Information Primary Emergency Contact: Alexandro Cote Mobile Relation: Daughter Preferred language: Mone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 Advance Directive: Full Code Discharge planning: TBD Ann Reed MD Division of Hospitalist Medicine Inpatient Medical Services/[facility] URINE CULTUREon 02-25-2024 Bacteria identified Cx Nom (U) URINE CULTURE Reference Normal urogenital krys present JOSE ALBICANS 10,000-50,000 CFU/mL Jose albicans (A) [ S = SUSCEPTIBLE R = RESISTANT I = INTERMEDIATE S-DD = Susceptible-dose dependent NS = Non-susceptible NO = No Interpretation ] [facility] Comment on above: Order Comment: Use e xisting specimen Performed By: #### L [id number] ####Parts Sales Associate: SILVIA FRENCH ([phone])[facility] ([address] Urinalysis complete panel (U )Ordered By: Madison Jackson on 02-25-2024 Amorphous Crystals, Urine Few Abnormal Negative /HPF [facility] Bacteria LM.HPF (Urine sed) [#/Area] Few Abnormal Negative /HPF [facility] Bilirubin Ql (U) Negative Negative mg/dL [facility] Clarity (U) Cloudy Abnormal Clear [facility] Color (U) Yellow Lt. Yellow [facility] Epithelial cells.squamous LM.HPF (Urine sed) [#/Area] 11-25 Abnormal [facility] Glucose Ql (U) Normal Normal (<70) mg/dL [facility] Hemoglobin Ql (U) Negative Negative mg/dL [facility] Interpretation and review of laboratory results Abnormal [facility] Ketones (U) [Mass/Vol] Negative Negat rhonda mg/dL [facility] Leukocyte esterase Test strip Ql (U) 500 Abnormal Negative Ha/uL [facility] Mucus LM.HPF (Urine sed) [#/Area] Few Negative /LPF [facility] Nitrite Ql (U) Negative Negative [facility] Non-Squamous Epithalial Cells, Urine 0-2 Abnormal Negative /HPF [facility] pH (U) 6.0 [pH] 5.0 - 8.0 pH [facility] Protein (U) [Mass/Vol] 30 mg/dL Abnormal Negative [facility] RBC LM.HPF (Urine sed) [#/Area] 0-2 [facility] Specific gravity (U) [Rel density] 1.018 1.005 - 1.030 [facility] Urobilinogen (U) [Mass/Vol] Normal Normal (0-1) mg/dL [facility] WBC LM.HPF (Urine sed) [#/Area] 11-25 Abnormal [facility] Bacteria identified Cx Nom ( Bld)Ordered By: Sravanthi White on 02-24-2024 Interpretation and review of laboratory results Abnormal [facility] CBC W Auto Differential pane l (Bld)on 02-24-2024 Basophils (Bld) [#/Vol] 0.0 10*3/uL 0.0 - 0.2 10*3/uL [facility] Basophils/100 WBC (Bld) 0.2 % 0.0 - 2.0 % [facility] Eosinophils (Bld) [#/Vol] 0.2 10*3/uL 0.0 - 0.5 10*3/uL [facility] Eosinophils/100 WBC (Bld) 2.2 % 0.0 - 6.0 % [facility] Erythrocyte distribution width (RBC) [Ratio] 15.1 % High 11.5 - 15.0 % [facility] Hematocrit (Bld) [Volume fraction] 27.7 % Low 35.0 - 47.0 % [facility] Hemoglobin (Bld) [Mass/Vol] 8.6 g/dL Low 11.7 - 16.0 g/dL [facility] Immature granulocytes (Bld) [#/Vol] 0.3 10*3/uL High NINF - 0.1 10*3/uL [facility] Immature granulocytes/100 WBC (Bld) 3.9 % High 0.0 - 2.0 % [facility] Interpretation and review of laboratory results Abnormal [facility] Lymphocytes (Bld) [#/Vol] 1.9 10*3/uL 1.0 - 4.3 10*3/uL [facility] Lymphocytes/100 WBC (Bld) 22.7 % 15.0 - 45.0 % [facility] MCH (RBC) [Entitic mass] 28.4 pg 26.0 - 34.0 pg [facility] MCHC (RBC) [Mass/Vol] 31.0 % 30.5 - 36.0 % [facility] MCV (RBC) [Entitic vol] 91.4 fL 77.0 - 99.0 fL [facility] Monocytes (Bld) [#/Vol] 1.0 10*3/uL High 0.0 - 0.9 10*3/uL [facility] Monocytes/100 WBC (Bld) 12.4 % 5.0 - 13.0 % [facility] Neutrophils (Bld) [#/Vol] 4.9 10*3/uL 1.8 - 7.5 10*3/uL [facility] Neutrophils/100 WBC (Bld) 58.6 % 38.0 - 82.0 % [facility] Nucleated RBC/100 WBC (Bld) [Ratio] 0.0 % [facility] Platelet mean volume (Bld) [Entitic vol] 8.9 fL Low 9.0 - 12.7 fL [facility] Platelets (Bld) [#/Vol] 196 10*3/uL 140 - 440 10*3/uL [facility] RBC (Bld) [#/Vol] 3.03 10*6/uL Low 3.80 - 5.2 0 10*6/uL [facility] WBC (Bld) [#/Vol] 8.3 10*3/uL 3.6 - 10.7 10*3/uL [facility] CBC WITH AUTO DIFFERENTIALon 02-24-2024 Basophils (Bld) [#/Vol] 0.0 10*3/uL Normal 0.0-0.2 [facility] Comment on above: Performed By: #### L AB103, LAB17 #### Parts Sales Associate: STEVIE ELMORE ([id number]) [facility] ([facility]) [address] Basophils/100 WBC (Bld) 0.2 % Normal 0.0-2.0 [facility] Comment on above: Performed By: #### L AB103, LAB17 #### Parts Sales Associate: STEVIE ELMORE ([id number]) [facility] ([facility]) [address] Eosinophils (Bld) [#/Vol] 0.2 10*3/uL Normal 0.0-0.5 [facility] Comment on above: Performed By: #### L AB103, LAB17 #### Parts Sales Associate: STEVIE ELMORE ([id number]) [facility] [address] Eosinophils/100 WBC (Bld) 2.2 % Normal 0.0-6.0 [facility] Comment on above: Performed By: #### L AB103, LAB17 #### Parts Sales Associate: STEVIE ELMORE ([id number]) [facility] [address] Erythrocyte distribution width (RBC) [Ratio] 15.1 % High 11.5-15.0 [facility] Comment on above: Performed By: #### L AB103, LAB17 #### Parts Sales Associate: STEVIE ELMORE ([phone]) [facility] [address] Hematocrit (Bld) [Volume fraction] 27.7 % Low 35.0-47.0 [facility] Comment on above: Performed By: #### L AB103, LAB17 #### Parts Sales Associate: STEVIE ELMORE ([id number]) [facility] [address] Hemoglobin (Bld) [Mass/Vol] 8.6 g/dL Low 11.7-16.0 [facility] Comment on above: Performed By: #### L AB103, LAB17 #### Parts Sales Associate: STEVIE ELMORE ([phone]) [facility] ([facility] [address] IMMATURE GRANS % 3.9 % High 0.0-2.0 [facility] Comment on above: Performed By: #### L AB103, LAB17 #### Parts Sales Associate: STEVIE ELMORE ([id number]) [facility] ([facility]) [address] IMMATURE GRANS ABSOLUTE 0.3 10*3/uL High <0.1 [facility] Comment on above: Performed By: #### L AB103, LAB17 #### Parts Sales Associate: STEVIE MOSQUEDACER ([id number]) [facility] ([facility]) [address] Lymphocytes (Bld) [#/Vol] 1.9 10*3/uL Normal 1.0-4.3 [facility] Comment on above: Performed By: #### L AB103, LAB17 #### Parts Sales Associate: STEVIE ELMORE ([id number]) [facility] ([facility]) [address] Lymphocytes/100 WBC (Bld) 22.7 % Normal 15.0-45.0 [facility] Comment on above: Performed By: #### L AB103, LAB17 #### Parts Sales Associate: STEVIE ELMORE ([id number]) [facility] ([facility]) [address] MCH (RBC) [Entitic mass] 28.4 pg Normal 26.0-34.0 [facility] Comment on above: Performed By: #### L AB103, LAB17 #### Parts Sales Associate: STEVIE ELMORE ([id number]) [facility] ([facility]) [address] MCHC 31.0 % Normal 30.5-36.0 [facility] Comment on above: Performed By: #### L AB103, LAB17 #### Parts Sales Associate: STEVIE MOYASuPERICO ([id number]) [facility] ([facility]) [address] MCV (RBC) [Entitic vol] 91.4 fL Normal 77.0-99.0 [facility] Comment on above: Performed By: #### L AB103, LAB17 #### Parts Sales Associate: STEVIE MOYAFAHAD ([id number]) [facility] [address] Monocytes (Bld) [#/Vol] 1.0 10*3/uL High 0.0-0.9 [facility] Comment on above: Performed By: #### L AB103, LAB17 #### Parts Sales Associate: STEVIE MOYAFAHAD ([phone]) [facility] ([facility]) [address] Monocytes/100 WBC (Bld) 12.4 % Normal 5.0-13.0 [facility] Comment on above: Performed By: #### L AB103, LAB17 #### Parts Sales Associate: STEVIE PUTNAMPERICO ([id number]) [facility] ([facility]) [address] NEUTROPHILS ABSOLUTE 4.9 10*3/uL Normal 1.8-7.5 [facility] Comment on above: Performed By: #### L AB103, LAB17 #### Parts Sales Associate: STEVIE MOYAFAHAD ([id number]) [facility] ([facility]) [address] Neutrophils/100 WBC (Bld) 58.6 % Normal 38.0-82.0 [facility] Comment on above: Performed By: #### L AB103, LAB17 #### Parts Sales Associate: STEVIE ELMORE ([id number]) [facility] ([facility]) [address] NRBC 0.0 /100 WBCs Normal 0.0-2.0 [facility] Comment on above: Performed By: #### L AB103, LAB17 #### Parts Sales Associate: STEVIE ELMORE ([id number]) [facility] ([facility]) [address] Platelet mean volume (Bld) [Entitic vol] 8.9 fL Low 9.0-12.7 [facility] Comment on above: Performed By: #### L AB103, LAB17 #### Parts Sales Associate: STEVIE ELMORE ([id number]) [facility] ([facility]) [address] Platelets (Bld) [#/Vol] 196 10*3/uL Normal 140-440 [facility] Comment on above: Performed By: #### L AB103, LAB17 #### Parts Sales Associate: STEVIE ELMORE ([id number]) [facility] ([facility]) [address] RBC (Bld) [#/Vol] 3.03 10*6/uL Low 3.80-5.20 [facility] Comment on above: Performed By: #### L AB103, LAB17 #### Parts Sales Associate: STEVIE ELMORE ([id number]) [facility] ([facility]) [address] WBC (Bld) [#/Vol] 8.3 10*3/uL Normal 3.6-10.7 [facility] Comment on above: Performed By: #### L AB103, LAB17 #### Parts Sales Associate: STEVIE ELMORE ([id number]) [facility] ([facility]) [address] COMPREHENSIVE METABOLIC PANE Wade 02-24-2024 Albumin [Mass/Vol] 2.6 g/dL Low 3.5-5.0 [facility] Comment on above: Performed By: #### L AB103, LAB17 #### Parts Sales Associate: STEVIE ELMORE ([id number]) [facility] [address] [place] [address] [place] ALP [Catalytic activity/Vol] 66 U/L Normal 38-126 [facility] Comment on above: Performed By: #### L AB103, LAB17 #### Parts Sales Associate: STEVIE ELMORE ([id number]) [facility] [address] [place] [address] [place] ALT [Catalytic activity/Vol] 24 U/L Normal 0-34 [facility] Comment on above: Performed By: #### L AB103, LAB17 #### Parts Sales Associate: STEVIE ELMORE ([id number]) [facility] ([facility] [address] Anion gap [Moles/Vol] 3 mmol/L Normal 3-13 [facility] Comment on above: Performed By: #### L AB103, LAB17 #### Parts Sales Associate: STEVIE ELMORE ([id number]) [facility] [address] [place] [address] [place] AST [Catalytic activity/Vol] 27 U/L Normal 15-46 [facility] Comment on above: Performed By: #### L AB103, LAB17 #### Parts Sales Associate: STEVIE ELMORE ([id number]) [facility] [address] [place] [address] [place] Bilirubin [Mass/Vol] 0.3 mg/dL Normal 0.2-1.3 [facility] Comment on above: Performed By: #### L AB103, LAB17 #### Parts Sales Associate: STEVIE ELMORE ([phone]) [facility] [address] [place] [address] [place] Calcium [Mass/Vol] 8.5 mg/dL Normal 8.4-10.4 [facility] Comment on above: Performed By: #### L AB103, LAB17 #### Parts Sales Associate: STEVIE ELMORE ([id number]) [facility] [address] [place], [place] [id number] [place] [address] Chloride [Moles/Vol] 102 mmol/L Normal 98-107 [facility] Comment on above: Performed By: #### L AB103, LAB17 #### Parts Sales Associate: STEVIE ELMORE ([id number]) [facility] ([facility]) [address] [place], [place] [address] [place] [address] CO2 [Moles/Vol] 30 mmol/L Normal 22-30 [facility] Comment on above: Performed By: #### L AB103, LAB17 #### Parts Sales Associate: STEVIE ELMORE ([id number]) [facility] [address] Creatinine [Mass/Vol] 1.42 mg/dL High 0.52-1.04 [facility] Comment on above: Performed By: #### L AB103, LAB17 #### Parts Sales Associate: STEVIE ELMORE ([id number]) [facility] ([facility]) [address] GLOMERULAR FILTRATION RATE ML/MIN/1.73 SQ M.PREDICTED 40.9 mL/min/1.73m*2 Low >60.0 [facility] Comment on above: Result Comment: Calc ulation based on the Chronic Kidney Disease Epidemiology Collaboration (CKD-EPI) equation refit without adjustment for race Performed By: #### L AB103, LAB17 #### Parts Sales Associate: STEVIE ELMORE ([id number]) [facility] ([facility]) [address] [place] [address] [place] Glucose [Mass/Vol] 105 mg/dL High 70-100 [facility] Comment on above: Performed By: #### L AB103, LAB17 #### Parts Sales Associate: STEVIE ELMORE ([id number]) [facility] ([facility]) [address] Potassium [Moles/Vol] 3.4 mmol/L Low 3.5-5.1 [facility] Comment on above: Performed By: #### L AB103, LAB17 #### Parts Sales Associate: STEVIE ELMORE ([id number]) [facility] ([facility]) [address] Protein [Mass/Vol] 5.2 g/dL Low 6.3-8.2 [facility] Comment on above: Performed By: #### L AB103, LAB17 #### Parts Sales Associate: STEVIE ELMORE ([id number]) [facility] ([facility]) [address] Sodium [Moles/Vol] 135 mmol/L Normal 135-145 [facility] Comment on above: Performed By: #### L AB103, LAB17 #### Parts Sales Associate: STEVIE ELMORE ([id number]) [facility] ([facility]) [address] Urea nitrogen [Mass/Vol] 33 mg/dL High 7-17 [facility] Comment on above: Performed By: #### L AB103, LAB17 #### Parts Sales Associate: STEVIE ELMORE ([id number]) [facility] ([facility]) [address] Comprehensive metabolic 1998 panelon 02-24-2024 Albumin [Mass/Vol] 2.6 g/dL Low 3.5 - 5.0 g/dL [facility] ALP [Catalytic activity/Vol] 66 U/L 38 - 126 U/L [facility] ALT [Catalytic activity/Vol] 24 U/L 0 - 34 U/L [facility] Anion gap [Moles/Vol] 3 mmol/L 3 - 13 mmol/L [facility] AST [Catalytic activity/Vol] 27 U/L 15 - 46 U/L [facility] Bilirubin [Mass/Vol] 0.3 mg/dL 0.2 - 1 .3 mg/dL [facility] Calcium [Mass/Vol] 8.5 mg/dL 8.4 - 10. 4 mg/dL [facility] Chloride [Moles/Vol] 102 mmol/L 98 - 10 7 mmol/L [facility] CO2 [Moles/Vol] 30 mmol/L 22 - 30 mmol/L [facility] Creatinine [Mass/Vol] 1.42 mg/dL High 0.52 - 1.04 mg/dL [facility] GFR/1.73 sq M.predicted MDRD (S/P/Bld) [Vol rate/Area] 40.9 mL/min/{1.73_m2} Low - PINF [facility] Glucose [Mass/Vol] 105 mg/dL High 70 - 100 mg/dL [facility] Interpretation and review of laboratory results Abnormal [facility] Potassium [Moles/Vol] 3.4 mmol/L Low 3.5 - 5.1 mmol/L [facility] Protein [Mass/Vol] 5.2 g/dL Low 6.3 - 8.2 g/dL [facility] Sodium [Moles/Vol] 135 mmol/L 135 - 145 mmol/L [facility] Urea nitrogen [Mass/Vol] 33 mg/dL High 7 - 17 mg/dL [facility] Laboratory - Chemistry and C hemistry - challengeon 02-24-2024 Glucose [Mass/Vol] 204 mg/dL High 70 - 100 mg/dL [facility] Glucose [Mass/Vol] 140 mg/dL High 70 - 100 mg/dL [facility] Glucose [Mass/Vol] 99 mg/dL 70 - 100 mg/dL [facility] Glucose [Mass/Vol] 83 mg/dL 70 - 100 mg/dL [facility] Magnesium [Mass/Vol] 2.2 mg/dL 1.6 - 2 .3 mg/dL [facility] Laboratory - Microbiology an d Antimicrobial susceptibilityOrdered By: Sravanthi White on 02-24-2024 Bacteria identified Cx Nom (Bld) Escherichia coli Critically abnormal [facility] MAGNESIUMon 02-24-2024 Magnesium [Mass/Vol] 2.2 mg/dL Normal 1.6-2.3 [facility] Comment on above: Performed By: #### L AB103, LAB17 #### Parts Sales Associate: STEVIE ELMORE ([phone]) [facility] ([facility] [address] [place] [address] Magnesium [Mass/Vol]on 02-23 Interpretation and review of laboratory results Normal [facility] No Panel Informationon 02-23 Interpretation and review of laboratory results Abnormal [facility] Interpretation and review of laboratory results Abnormal [facility] Interpretation and review of laboratory results Normal [facility] Interpretation and review of laboratory results Normal [facility] Radiology Study observation (narrative) [facility] Rad[facility] Study observation (narrative) [facility] Rad[facility] Study observation (narrative) [facility] Radiology Study observation (narrative) [facility] BLOOD CULTUREon 02-23-2024 Bacteria identified Cx Nom (Bld) BLOOD CULTURE Reference No growth at 5 days ORDER COMMENTS: Blood Collection Site: Left Arm [ S = SUSCEPTIBLE R = RESISTANT I = INTERMEDIATE S-DD = Susceptible-dose dependent NS = Non-susceptible NO = No Interpretation ] Normal [facility] Comment on above: Performed By: #### L AB462 #### Parts Sales Associate: SILVIA FRENCH ([id number]) [address] Bacteria identified Cx Nom (Bld) BLOOD CULTURE Reference No growth at 5 days ORDER COMMENTS: Blood Collection Site: Right Arm [ S = SUSCEPTIBLE R = RESISTANT I = INTERMEDIATE S-DD = Susceptible-dose dependent NS = Non-susceptible NO = No Interpretation ] [facility] Comment on above: Performed By: #### L AB462 ####Parts Sales Associate: SILVIA FRENCH ([phone])[address] CARECOORDon 02-23-2024 [facility] Coord[facility] Jorge reich Note/Update Clinical Update: admitted with acute metabolic encephalopathy due to UTI and an elevated troponin due to demand ischemia. Changed IV Rocephin to IV ertapenem yesterday - will continue for 2 weeks. ID and Geriatrics consulted. Plan to repeat blood cultures this AM. Mental status improved. Discharge Plan: [facility] Discharge Barriers: clinical stability Chart reviewed. Per Geriatrics consult, plan is to follow up Sunday. IM note from 02/21 anticipates discharge on 02/24. Messaged bedside RN to request update if discharge orders are placed. TCC will continue to follow. [facility] CBC (HEMOGRAM)on 02-23-2024 Erythrocyte distribution width (RBC) [Ratio] 15.6 % High 11.5-15.0 [facility] Comment on above: Performed By: #### L [id number], [id number] #### Parts Sales Associate: STEVIE ELMORE ([phone]) [facility]ITAL[facility]ian[facility] BROWNAdenike (SBHLAB) [address] Hematocrit (Bld) [Volume fraction] 28.1 % Low 35.0-47.0 [facility] Comment on above: Performed By: #### L [id number], LAB17 #### Parts Sales Associate: STEVIE ELMORE ([id number]) [facility] (SBHLAB) [address] Hemoglobin (Bld) [Mass/Vol] 8.7 g/dL Low 11.7-16.0 [facility] Comment on above: Performed By: #### L AB103, [id number] #### Parts Sales Associate: STEVIE ELMORE ([id number]) [facility]ITALGiancarlo ALCOCERCH[facility] (SBHLAB) [address] MCH (RBC) [Entitic mass] 28.2 pg Normal 26.0-34.0 [facility] Comment on above: Performed By: #### L [id number], LAB17 #### Parts Sales Associate: STEVIE ELMORE ([id number]) [facility] CANAJOHARIE (SBHLAB) [address] MCHC 31.0 % Normal 30.5-36.0 [facility] Comment on above: Performed By: #### L AB103, [id number] #### Parts Sales Associate: STEVIE ELMORE ([id number]) [facility] (SBHLAB) [address] MCV (RBC) [Entitic vol] 91.2 fL Normal 77.0-99.0 [facility] Comment on above: Performed By: #### L AB103, LAB17 #### Parts Sales Associate: STEVIE ELMORE ([id number]) [place] (SBHLAB) [address] Platelet mean volume (Bld) [Entitic vol] 9.0 fL Normal 9.0-12.7 [facility] Comment on above: Performed By: #### L AB103, LAB17 #### Parts Sales Associate: STEVIE ELMORE ([id number]) [facility] [place] (SBHLAB) [address] Platelets (Bld) [#/Vol] 182 10*3/uL Normal 140-440 [facility] Comment on above: Performed By: #### L AB103, LAB17 #### Parts Sales Associate: STEVIE ELMORE ([id number]) [facility]ITAL[facility] (SBHLAB) [address] RBC (Bld) [#/Vol] 3.08 10*6/uL Low 3.80-5.20 [facility] Comment on above: Performed By: #### Misti AB103, LAB17 #### Parts Sales Associate: STEVIE ELMORE ([id number]) [facility] (SBHLAB) [address] WBC (Bld) [#/Vol] 7.5 10*3/uL Normal 3.6-10.7 [facility] Comment on above: Performed By: #### L AB103, LAB17 #### Parts Sales Associate: STEVIE ELMORE ([id number]) [facility] (SBHLAB) [address] CBC panel Auto (Bld)on 02-22 Erythrocyte distribution width (RBC) [Ratio] 15.6 % High 11.5 - 15.0 % [facility] Hematocrit (Bld) [Volume fraction] 28.1 % Low 35.0 - 47.0 % [facility] Hemoglobin (Bld) [Mass/Vol] 8.7 g/dL Low 11.7 - 16.0 g/dL [facility] Interpretation and review of laboratory results Abnormal [facility] MCH (RBC) [Entitic mass] 28.2 pg 26.0 - 34.0 pg [facility] MCHC (RBC) [Mass/Vol] 31.0 % 30.5 - 36.0 % [facility] MCV (RBC) [Entitic vol] 91.2 fL 77.0 - 99.0 fL [facility] Platelet mean volume (Bld) [Entitic vol] 9.0 fL 9.0 - 12.7 fL [facility] Platelets (Bld) [#/Vol] 182 10*3/uL 140 - 440 10*3/uL [facility] RBC (Bld) [#/Vol] 3.08 10*6/uL Low 3.80 - 5.2 0 10*6/uL [facility] WBC (Bld) [#/Vol] 7.5 10*3/uL 3.6 - 10.7 10*3/uL [facility] COMPREHENSIVE METABOLIC PANE Wade 02-23-2024 Albumin [Mass/Vol] 2.6 g/dL Low 3.5-5.0 [facility] Comment on above: Performed By: #### L [id number] ####Parts Sales Associate: STEVIE ELMORE ([id number])[facility] ([facility])[address] ALP [Catalytic activity/Vol] 70 U/L Normal 38-126 [facility] Comment on above: Performed By: #### L AB17 ####Parts Sales Associate: STEVIE ELMORE ([phone])[facility])[address] ALT [Catalytic activity/Vol] 20 U/L Normal 0-34 [facility] Comment on above: Performed By: #### L AB17 ####Parts Sales Associate: STEVIE ELMORE ([id number])[facility] (SBHLAB)[address] Anion gap [Moles/Vol] 6 mmol/L Normal 3-13 [facility] Comment on above: Performed By: #### L AB17 ####Parts Sales Associate: STEVIE ELMORE ([id number])[facility] (SBHLAB)[address] AST [Catalytic activity/Vol] 23 U/L Normal 15-46 [facility] Comment on above: Performed By: #### L [id number] ####Parts Sales Associate: STEVIE ELMORE ([id number])[facility]ITALA KEVINN (SBHLAB)[address] Bilirubin [Mass/Vol] 0.4 mg/dL Normal 0.2-1.3 [facility] Comment on above: Performed By: #### L [id number] ####Parts Sales Associate: STEVIE ELMORE ([id number])[facility]ITALA [facility] [facility] (SBHLAB)[address] Calcium [Mass/Vol] 8.1 mg/dL Low 8.4-10.4 [facility] Comment on above: Performed By: #### L [id number] ####Parts Sales Associate: STEVIE ELMORE ([phone])[facility]ITALGiancarlo ALCOCERCH[facility] (SBHLAB)[address] Chloride [Moles/Vol] 101 mmol/L Normal 98-107 [facility] Comment on above: Performed By: #### L AB17 ####Parts Sales Associate: STEVIE ELMORE ([id number])[facility] (SBHLAB)[address] CO2 [Moles/Vol] 28 mmol/L Normal 22-30 [facility] Comment on above: Performed By: #### L AB17 ####Parts Sales Associate: STEVIE ELMORE ([id number])[facility] BARB[facility] (SBHLAB)[address] Creatinine [Mass/Vol] 1.62 mg/dL High 0.52-1.04 [facility] Comment on above: Performed By: #### L AB17 ####Parts Sales Associate: STEVIE ELMORE ([id number])[facility] (SBHLAB)[address] GLOMERULAR FILTRATION RATE ML/MIN/1.73 SQ M.PREDICTED 34.9 mL/min/1.73m*2 Low >60.0 [facility] Comment on above: Result Comment: Calc ulation based on the Chronic Kidney Disease Epidemiology Collaboration (CKD-EPI) equation refit without adjustment for race Performed By: #### L AB17 ####Parts Sales Associate: STEVIE ELMORE ([id number])[facility]ITALA BARBBREANAN (SBHLAB)[address] Glucose [Mass/Vol] 111 mg/dL High 70-100 [facility] Comment on above: Performed By: #### L [id number] ####Parts Sales Associate: STEVIE ELMORE ([id number])[facility] (SBHLAB)[address] Potassium [Moles/Vol] 3.7 mmol/L Normal 3.5-5.1 [facility] Comment on above: Performed By: #### L AB17 ####Parts Sales Associate: STEVIE ELMORE ([id number])[facility] (SBHLAB)[address] Protein [Mass/Vol] 5.1 g/dL Low 6.3-8.2 [facility] Comment on above: Performed By: #### L AB17 ####Parts Sales Associate: STEVIE ELMORE ([phone])[facility] (SBHLAB)[address] Sodium [Moles/Vol] 135 mmol/L Normal 135-145 [facility] Comment on above: Performed By: #### L AB17 ####Parts Sales Associate: STEVIE ELMORE ([id number])[facility]A [place] (SBHLAB)[address] Urea nitrogen [Mass/Vol] 35 mg/dL High 7-17 [facility] Comment on above: Performed By: #### L AB17 ####Parts Sales Associate: STEVIE ELMORE ([id number])[facility] BARB[address] [facility] (SBHLAB)[address] Comprehensive metabolic 1998 panelon 02-23-2024 Albumin [Mass/Vol] 2.6 g/dL Low 3.5 - 5.0 g/dL [facility] ALP [Catalytic activity/Vol] 70 U/L 38 - 126 U/L [facility] ALT [Catalytic activity/Vol] 20 U/L 0 - 34 U/L [facility] Anion gap [Moles/Vol] 6 mmol/L 3 - 13 mmol/L [facility] AST [Catalytic activity/Vol] 23 U/L 15 - 46 U/L [facility] Bilirubin [Mass/Vol] 0.4 mg/dL 0.2 - 1 .3 mg/dL [facility] Calcium [Mass/Vol] 8.1 mg/dL Low 8.4 - 10. 4 mg/dL [facility] Chloride [Moles/Vol] 101 mmol/L 98 - 10 7 mmol/L [facility] CO2 [Moles/Vol] 28 mmol/L 22 - 30 mmol/L [facility] Creatinine [Mass/Vol] 1.62 mg/dL High 0.52 - 1.04 mg/dL [facility] GFR/1.73 sq M.predicted MDRD (S/P/Bld) [Vol rate/Area] 34.9 mL/min/{1.73_m2} Low - PINF [facility] Glucose [Mass/Vol] 111 mg/dL High 70 - 100 mg/dL [facility] Interpretation and review of laboratory results Abnormal [facility] Potassium [Moles/Vol] 3.7 mmol/L 3.5 - 5.1 mmol/L [facility] Protein [Mass/Vol] 5.1 g/dL Low 6.3 - 8.2 g/dL [facility] Sodium [Moles/Vol] 135 mmol/L 135 - 145 mmol/L [facility] Urea nitrogen [Mass/Vol] 35 mg/dL High 7 - 17 mg/dL [facility] Laboratory - Chemistry and C hemistry - challengeon 02-23-2024 Glucose [Mass/Vol] 239 mg/dL High 70 - 100 mg/dL [facility] Glucose [Mass/Vol] 205 mg/dL High 70 - 100 mg/dL [facility] Glucose [Mass/Vol] 78 mg/dL 70 - 100 mg/dL [facility] Glucose [Mass/Vol] mg/dL Low 70 - 100 mg/dL [facility] Glucose [Mass/Vol] 108 mg/dL High 70 - 100 mg/dL [facility] No Panel Informationon 02-22 Interpretation and review of laboratory results Abnormal [facility] Interpretation and review of laboratory results Abnormal [facility] Interpretation and review of laboratory results Normal [facility] Interpretation and review of laboratory results Abnormal [facility] Interpretation and review of laboratory results Abnormal [facility] Radiology Study observation (narrative) [facility] Rad[facility] Study observation (narrative) [facility] Rad[facility] Study observation (narrative) [facility] Radiology Study observation (narrative) [facility] Study observation (narrative) [facility] Progress Noteon 02-23-2024 Progress Note Speech-Language Pathology SPEECH LANGUAGE PATHOLOGY [facility] Bedside Swallow Evaluation Patient Name: Kimberly Patel Evaluation Date: 02/23/2024 Date of : 1955 Admission Date: 02/21/2024 10:26 AM Age: 68 y.o. Room/Bed: [facility] A IMPRESSION: No s/s oropharyngeal dysphagia. No overt clinical s/s pulmonary compromise with PO. RECOMMENDATION: Recommend Regular solids and Thin liquids and meds as tolerated and the following precautions: - Small bites/sips - Alternate solid and liquids No skilled acute MAMMOGRAPHY TECHNICIAN indicated at this time. Please reconsult should changes occur. Subjective Patient resting in bed - requires max encouragement to participate in clinical bedside swallow evaluation. Minimal verbal output during evaluation. Dysphagia History: No history of MAMMOGRAPHY TECHNICIAN services in EMR with retrospective chart review Baseline Diet: Per usp information - pt current intakes regular diet with thin liquid at baseline Current Diet: Dietary Orders (From admission, onward) Start Ordered 02/21/242140 Adult diet Regular; 4 carb choices (60 gm/meal) Diet effective now Question Answer Comment Diet type Regular Carbohydrate restriction: 4 carb choices (60 gm/meal) 02/21/242139 Tube Feeding: no Tracheostomy: no Recent Chest Xray/CT of Chest: CTA chest angiogram w and/or wo IV contrast 02/21/2024 Impression 1. No PE identified. PE cannot be evaluated beyond the pulmonary artery proximal segmental level due to study limitations above. 2. No acute pulmonary abnormalities. 3. Cardiomegaly and three-vessel coronary artery calcification. Report Dictated on Electronically Signed By: Frankie Patel MD Electronically Signed Date/Time: 02/21/2024 1:56 PM EDT Oxygen: Oxygen Therapy: Supplemental oxygen O2 Delivery Method: Nasal cannula O2 Flow Rate (L/min): 4 L/min Past Medical History: Past Medical History: Diagnosis Date CHF (congestive heart failure) ([facility]) COPD (chronic obstructive pulmonary disease) ([facility]) Diabetes mellitus ([facility]) Past Surgical History: Past Surgical History: Procedure Laterality Date CHOLECYSTECTOMY COLONOSCOPY throat biopsy Admission Diagnosis: Patient Active Problem List Diagnosis Date Noted Bipolar disorder, most recent episode depressed ([facility]) ([facility]) 02/22/2024 Sphenoid sinusitis, unspecified chronicity 02/21/2024 Bullous pemphigoid 11/17/2022 Acute on chronic diastolic congestive heart failure ([facility]) 08/22/2022 Physical debility 10/12/2021 Other hyperlipidemia 10/12/2021 CAD (coronary artery disease) 10/12/2021 Primary hypertension 10/12/2021 Neuropathy 10/12/2021 Bacteremia 10/12/2021 Acute kidney injury superimposed on CKD ([facility]) ([facility]) 10/12/2021 Type 2 diabetes mellitus with diabetic polyneuropathy, with long-term current use of insulin ([facility]) 10/12/2021 History of Present Illness: Kimberly Patel is a 68 y.o. female who presents to the emergency department with fever or report temperature was 107 ?F, she had change in mental status of decreased interaction. At baseline she is wheelchair-bound. She denies any pain currently. At baseline she wears 4 L nasal cannula. Patient Complaint: Pt fatigued and wanting to continue to get rest Pain: Pt denies any current pain. PPE Worn: surgical mask, gown, gloves Objective Bedside swallow eval completed. Swallowing Examination PO Trials - thin liquid, (straw) - regular solids Oral Phase Pt with adequate oral receipt of PO trials. No anterior spillage. Mastication appeared complete, organized, and timely. Oral transit time appears WFL. No oral residue. Pharyngeal Phase Hyolaryngeal excursion clinically appears adequate and timely per palpation. 1-2 swallows palpated per bolus, likely indicative of adequate pharyngeal clearance. No overt clinical s/s airway penetration as evidenced by no cough, no throat clear, and no change in vocal quality. Education Education Given: swallowing strategies, diet recommendations Given To: patient Response: Pt with minimal interaction with therapist during evaluation - pt seems to understand information provided. Goals Patient Stated Goal: To go back to sleep Encounter Problems Encounter Problems (Active) MAMMOGRAPHY TECHNICIAN Misc Participate in Bedside swallow evaluation Start: 02/22/24 Expected End: 02/25/24 Therapy Time MAMMOGRAPHY TECHNICIAN Individual Minutes Time In: 0745 Time Out: 0801 Minutes: 16 Nuno Eastman MA, CCC-MAMMOGRAPHY TECHNICIAN [facility] Progress Note Placed patient on P5 [address] [facility] CARECOORDon 02-22-2024 [facility] Weekend dc form ( ambulance form) completed and placed on patients chart in the event she is ready for dc back to [facility] this . [facility] Care Managment Initi al Assessment Date: 02/22/2024 Patient Name: Kimberly Patel : 1955 Patient Information Source of Information: Patient, Patient Salon Designer Name/Contact Information: Alexandro Cote, DTR [phone] Cognition/Language: WFL - Within Functional Limits Permission given to speak with patient commissary representative/caregive r as indicated: Yes Confirmation of Payer with patient/family: Yes Payer Name: Medicare A/B and [facility] Medicaid : No Confirmation of Primary Care Physician: Confirmed PCP Name: Lucy Quick Seen in last 2 years?: Yes Primary Caregiver: Self If assistance needed, confirmed caregiver ready, willing and able to care for patient at discharge: Confirmed with: Living Arrangements Current Residence: Number of Floors Number of Entry Steps: Bed/Bath Levels: Facility: Skilled Nursing/[facility] Care Facility Name: [facility] Plan to Return: Lives with: Other (Comment) (Facility staff) Support Systems: Children Activities of Daily Living Ambulation: Total Care Bathing/Dressing: Total Care Elimination/Continence/ Toileting: Total Care Feeding: Total Care Who Assists with Activities of Daily Living: Nursing staff at [facility] Instrumental Activities of Daily Living Prescription Coverage: Yes Pharmacy Used: Skilled Nursing Medication Management: Transportation/Shopping : Independent (Skilled Nursing) Transportation Mode: Payer provided transport service Needs Assistance with Transportation at Discharge: Meal Preparation: Assistance Provider Meal Prep Assistance Provider Name: Skilled Nursing Laundry/Cleaning: Assistance Provider Laundry/Cleaning Assistance Provider Name: Skilled Nursing Finances/Bill Paying: Assistance Provider Finances/Bill Payer Assistance Provider Name: Skilled Nursing Communication: Assistance Types of Care Services/Equipment Utilized Care Services: Dialysis Type: NA Durable Medical Equipment: Mohamud Lift Patient's Goal/Discharge Plan Patient expects to be discharged to: Return to [facility] Discharge Planning Actions: Continue to follow Patient's Choice Rights and [employer] and Collaborative Relationships Disclosed as Indicated for Post-Acute Care: NA Interdisciplinary Team Engagement: Social Work Referral for: Additional Information: Chart reviewed. Patient admitted to [facility] for treatment of confusion and altered mental status. New UTI. CHF, DM. On IV Rocephin. Regular diet. 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 Geriatrics. Met with patient at bedside today. Explained role. Patient reports she is tired and directs me to speak with her daughter. Spoke with Alexandro Cote over the phone, explained role. She is very pleasant. Reports patient is at [facility] term and would like patient to return there on discharge once medically ready. She reports patient is a total care and bed bound at facility. Uses a mohamud lift. Will arrange transportation when ready. LEGAL RECORDS MANAGER tasked to begin referral; response pending. Tasked Weekend DP team to follow. SW updated. Sejal Thomas RN Normal [facility] CBC W Auto Differential pane l (Bld)Ordered By: Rita Beckham on 02-22-2024 Basophils (Bld) [#/Vol] 0.0 10*3/uL 0.0 - 0.2 10*3/uL [employer] Basophils/100 WBC (Bld) 0.2 % 0.0 - 2.0 % [facility] Eosinophils (Bld) [#/Vol] 0.1 10*3/uL 0.0 - 0.5 10*3/uL [employer] Eosinophils/100 WBC (Bld) 0.5 % 0.0 - 6.0 % [facility] Erythrocyte distribution width (RBC) [Ratio] 15.6 % High 11.5 - 15.0 % [facility] Hematocrit (Bld) [Volume fraction] 30.2 % Low 35.0 - 47.0 % [facility] Hemoglobin (Bld) [Mass/Vol] 9.6 g/dL Low 11.7 - 16.0 g/dL [facility] Immature granulocytes (Bld) [#/Vol] 0.3 10*3/uL High NINF - 0.1 10*3/uL [facility] Immature granulocytes/100 WBC (Bld) 3.3 % High 0.0 - 2.0 % [facility] Interpretation and review of laboratory results Abnormal [facility] Lymphocytes (Bld) [#/Vol] 0.9 10*3/uL Low 1.0 - 4.3 10*3/uL [facility] Lymphocytes/100 WBC (Bld) 9.5 % Low 15.0 - 45.0 % [facility] MCH (RBC) [Entitic mass] 28.6 pg 26.0 - 34.0 pg [facility] MCHC (RBC) [Mass/Vol] 31.8 % 30.5 - 36.0 % [facility] MCV (RBC) [Entitic vol] 89.9 fL 77.0 - 99.0 fL [facility] Monocytes (Bld) [#/Vol] 0.9 10*3/uL 0.0 - 0.9 10*3/uL [facility] Monocytes/100 WBC (Bld) 8.8 % 5.0 - 13.0 % [facility] Neutrophils (Bld) [#/Vol] 7.5 10*3/uL 1.8 - 7.5 10*3/uL [facility] Neutrophils/100 WBC (Bld) 77.7 % 38.0 - 82.0 % [facility] Nucleated RBC/100 WBC (Bld) [Ratio] 0.0 % [facility] [employer] Platelet mean volume (Bld) [Entitic vol] 8.8 fL Low 9.0 - 12.7 fL [facility] Platelets (Bld) [#/Vol] 195 10*3/uL 140 - 440 10*3/uL [facility] RBC (Bld) [#/Vol] 3.36 10*6/uL Low 3.80 - 5.2 0 10*6/uL [facility] WBC (Bld) [#/Vol] 9.6 10*3/uL 3.6 - 10.7 10*3/uL [facility] CBC WITH AUTO DIFFERENTIALon 02-22-2024 Basophils (Bld) [#/Vol] 0.0 10*3/uL Normal 0.0-0.2 [facility] Comment on above: Performed By: #### L [id number] ####Parts Sales Associate: STEVIE ELMORE ([id number])[facility] [facility] (SBHLAB)[address] Basophils/100 WBC (Bld) 0.2 % Normal 0.0-2.0 [facility] Comment on above: Performed By: #### L [id number] ####Parts Sales Associate: STEVIE ELMORE ([id number])[facility] (SBAB)[address] [place] [address] Eosinophils (Bld) [#/Vol] 0.1 10*3/uL Normal 0.0-0.5 [facility] Comment on above: Performed By: #### L [id number] ####Parts Sales Associate: STEVIE ELMORE ([id number])[facility] [place] (SBAB)[address] Eosinophils/100 WBC (Bld) 0.5 % Normal 0.0-6.0 [facility] Comment on above: Performed By: #### L [id number] ####Parts Sales Associate: STEVIE ELMORE ([id number])[facility] (SBAB)[address] [place] [address] Erythrocyte distribution width (RBC) [Ratio] 15.6 % High 11.5-15.0 [facility] Comment on above: Performed By: #### L [id number] ####Parts Sales Associate: STEVIE ELMORE ([id number])[facility] (SBAB)[address] [place] [address] Hematocrit (Bld) [Volume fraction] 30.2 % Low 35.0-47.0 [facility] Comment on above: Performed By: #### L [id number] ####Parts Sales Associate: STEVIE ELMORE ([id number])[facility] [place]BBREANA[place] (SBHLAB)[address] Hemoglobin (Bld) [Mass/Vol] 9.6 g/dL Low 11.7-16.0 [facility] Comment on above: Performed By: #### L [id number] ####Parts Sales Associate: STEVIE ELMORE ([id number])[facility] (SBHLAB)[address] IMMATURE GRANS % 3.3 % High 0.0-2.0 [facility] Comment on above: Performed By: #### L [id number] ####Parts Sales Associate: STEVIE ELMORE ([id number])[facility] (SBHLAB)[address] IMMATURE GRANS ABSOLUTE 0.3 10*3/uL High <0.1 [facility] Comment on above: Performed By: #### L [id number] ####Parts Sales Associate: STEVIE ELMORE ([phone])[facility] (SBHLAB)[address] Lymphocytes (Bld) [#/Vol] 0.9 10*3/uL Low 1.0-4.3 [facility] Comment on above: Performed By: #### L [id number] ####Parts Sales Associate: STEVIE ELMORE ([id number])[facility]ITALGiancarlo [facility] (SBHLAB)[address] [place] [address] [place] Lymphocytes/100 WBC (Bld) 9.5 % Low 15.0-45.0 [facility] Comment on above: Performed By: #### L [id number] ####Parts Sales Associate: STEVIE ELMORE ([id number])[facility]ITALA [facility] [facility] (SBHLAB)[address] MCH (RBC) [Entitic mass] 28.6 pg Normal 26.0-34.0 [facility] Comment on above: Performed By: #### L [id number] ####Parts Sales Associate: STEVIE ELMORE ([phone])[facility] (SBHLAB)[address] [place] [address] MCHC 31.8 % Normal 30.5-36.0 [facility] Comment on above: Performed By: #### L [id number] ####Parts Sales Associate: STEVIE ELMORE ([id number])[facility] (SBHLAB)[address] MCV (RBC) [Entitic vol] 89.9 fL Normal 77.0-99.0 [facility] Comment on above: Performed By: #### L [id number] ####Parts Sales Associate: STEVIE ELMORE ([id number])[facility] [place] (SBHLAB)[address] [place] [address] Monocytes (Bld) [#/Vol] 0.9 10*3/uL Normal 0.0-0.9 [facility] Comment on above: Performed By: #### L [id number] ####Parts Sales Associate: STEVIE ELMORE ([id number])[facility] (SBHLAB)[address] [place] [address] Monocytes/100 WBC (Bld) 8.8 % Normal 5.0-13.0 [facility] Comment on above: Performed By: #### L [id number] ####Parts Sales Associate: STEVIE ELMORE ([id number])[facility] (SBHLAB)[address] [place] [address] NEUTROPHILS ABSOLUTE 7.5 10*3/uL Normal 1.8-7.5 [facility] Comment on above: Performed By: #### L [id number] ####Parts Sales Associate: STEVIE ELMORE ([id number])[facility] (SBHLAB)[address] Neutrophils/100 WBC (Bld) 77.7 % Normal 38.0-82.0 [facility] Comment on above: Performed By: #### L [id number] ####Parts Sales Associate: STEVIE ELMORE ([id number])[facility] (SBHLAB)[address] NRBC 0.0 /100 WBCs Normal 0.0-2.0 [facility] Comment on above: Performed By: #### L [id number] ####Parts Sales Associate: STEVIE MOYASuPERICO ([id number])[facility] [place] (SBHLAB)[address] Platelet mean volume (Bld) [Entitic vol] 8.8 fL Low 9.0-12.7 [facility] Comment on above: Performed By: #### L [id number] ####Parts Sales Associate: STEVIE MOYAFAHAD ([id number])[facility] [place] (SBHLAB)[address] Platelets (Bld) [#/Vol] 195 10*3/uL Normal 140-440 [facility] Comment on above: Performed By: #### L [id number] ####Parts Sales Associate: STEVIE PUTNAMPERICO ([id number])[facility] [place] (SBHLAB)[address] RBC (Bld) [#/Vol] 3.36 10*6/uL Low 3.80-5.20 [facility] Comment on above: Performed By: #### L [id number] ####Parts Sales Associate: STEVIE PUTNAMPERICO ([id number])[facility] [place] (SBHLAB)[address] WBC (Bld) [#/Vol] 9.6 10*3/uL Normal 3.6-10.7 [facility] Comment on above: Performed By: #### L [id number] ####Parts Sales Associate: STEVIE PUTNAMPERICO ([id number])[facility] [place] (SBHLAB)[address] COMPREHENSIVE METABOLIC PANE Wade 02-22-2024 Albumin [Mass/Vol] 2.7 g/dL Low 3.5-5.0 [facility] Comment on above: Performed By: #### L [id number], LAB17 #### Parts Sales Associate: STEVIE ELMORE ([id number]) [facility] [place] (SBHLAB) [address] ALP [Catalytic activity/Vol] 75 U/L Normal 38-126 [facility] Comment on above: Performed By: #### L [id number], LAB17 #### Parts Sales Associate: STEVIE ELMORE ([id number]) [facility] (SBHLAB) [address] ALT [Catalytic activity/Vol] 18 U/L Normal 0-34 [facility] Comment on above: Performed By: #### L [id number], LAB17 #### Parts Sales Associate: STEVIE ELMORE ([id number]) [facility] (SBHLAB) [address] Anion gap [Moles/Vol] 5 mmol/L Normal 3-13 [facility] Comment on above: Performed By: #### L [id number], LAB17 #### Parts Sales Associate: STEVIE ELMORE ([id number]) [facility] (SBHLAB) [address] AST [Catalytic activity/Vol] 21 U/L Normal 15-46 [facility] Comment on above: Performed By: #### L [id number], LAB17 #### Parts Sales Associate: STEVIE ELMORE ([id number]) [facility] (SBHLAB) [address] [place] [address] [place] Bilirubin [Mass/Vol] 0.6 mg/dL Normal 0.2-1.3 [facility] Comment on above: Performed By: #### L [id number], LAB17 #### Parts Sales Associate: STEVIE ELMORE ([id number]) [facility] (SBHLAB) [address] Calcium [Mass/Vol] 8.2 mg/dL Low 8.4-10.4 [facility] Comment on above: Performed By: #### L [id number], LAB17 #### Parts Sales Associate: STEVIE ELMORE ([id number]) [facility] (SBHLAB) [address] [place] [address] [place] Chloride [Moles/Vol] 99 mmol/L Normal 98-107 [facility] Comment on above: Performed By: #### L [id number], LAB17 #### Parts Sales Associate: STEVIE ELMORE ([id number]) [facility] BARB[facility]RIST[address] [facility] (SBHLAB) [address] [place] [address] [place] CO2 [Moles/Vol] 29 mmol/L Normal 22-30 [facility] Comment on above: Performed By: #### L [id number], LAB17 #### Parts Sales Associate: STEVIE ELMORE ([id number]) [facility] (SBHLAB) [address] Creatinine [Mass/Vol] 1.17 mg/dL High 0.52-1.04 [facility] Comment on above: Performed By: #### L [id number], LAB17 #### Parts Sales Associate: STEVIE ELMORE ([id number]) [facility] MICHAELCHRI[facility] [facility] (SBHLAB) [address] [place] [address] [place] GLOMERULAR FILTRATION RATE ML/MIN/1.73 SQ M.PREDICTED 51.6 mL/min/1.73m*2 Low >60.0 [facility] Comment on above: Result Comment: Calc ulation based on the Chronic Kidney Disease Epidemiology Collaboration (CKD-EPI) equation refit without adjustment for race Performed By: #### L [id number], LAB17 #### Parts Sales Associate: STEVIE ELMORE ([id number]) [facility] (SBHLAB) [address] [place] [address] [place] Glucose [Mass/Vol] 142 mg/dL High 70-100 [facility] Comment on above: Performed By: #### L [id number], LAB17 #### Parts Sales Associate: STEVIE ELMORE ([id number]) [facility] (SBHLAB) [address] [place] [address] [place] Potassium [Moles/Vol] 3.9 mmol/L Normal 3.5-5.1 [facility] Comment on above: Performed By: #### L [id number], LAB17 #### Parts Sales Associate: STEVIE ELMORE ([id number]) [facility] (SBHLAB) [address] Protein [Mass/Vol] 5.3 g/dL Low 6.3-8.2 [facility] Comment on above: Performed By: #### L [id number], LAB17 #### Parts Sales Associate: STEVIE ELMORE ([id number]) [facility] (SBHLAB) [address] Sodium [Moles/Vol] 132 mmol/L Low 135-145 [facility] Comment on above: Performed By: #### L [id number], LAB17 #### Parts Sales Associate: STEVIE ELMORE ([id number]) [facility] (SBHLAB) [address] Urea nitrogen [Mass/Vol] 32 mg/dL High 7-17 [facility] Comment on above: Performed By: #### L [id number], LAB17 #### Parts Sales Associate: STEVIE ELMORE ([id number]) [facility] (SBHLAB) [address] Cobalamin (Vitamin B12) [Mas s/Vol]on 02-22-2024 Interpretation and review of laboratory results Normal [facility] Comprehensive metabolic 1998 panelon 02-22-2024 Albumin [Mass/Vol] 2.7 g/dL Low 3.5 - 5.0 g/dL [facility] ALP [Catalytic activity/Vol] 75 U/L 38 - 126 U/L [facility] ALT [Catalytic activity/Vol] 18 U/L 0 - 34 U/L [facility] Anion gap [Moles/Vol] 5 mmol/L 3 - 13 mmol/L [facility] AST [Catalytic activity/Vol] 21 U/L 15 - 46 U/L [facility] Bilirubin [Mass/Vol] 0.6 mg/dL 0.2 - 1 .3 mg/dL [facility] Calcium [Mass/Vol] 8.2 mg/dL Low 8.4 - 10. 4 mg/dL [facility] Chloride [Moles/Vol] 99 mmol/L 98 - 10 7 mmol/L [facility] CO2 [Moles/Vol] 29 mmol/L 22 - 30 mmol/L [facility] Creatinine [Mass/Vol] 1.17 mg/dL High 0.52 - 1.04 mg/dL [facility] GFR/1.73 sq M.predicted MDRD (S/P/Bld) [Vol rate/Area] 51.6 mL/min/{1.73_m2} Low - PINF [facility] th Glucose [Mass/Vol] 142 mg/dL High 70 - 100 mg/dL [facility] Interpretation and review of laboratory results Abnormal [facility] Potassium [Moles/Vol] 3.9 mmol/L 3.5 - 5.1 mmol/L [facility] Protein [Mass/Vol] 5.3 g/dL Low 6.3 - 8.2 g/dL [facility] Sodium [Moles/Vol] 132 mmol/L Low 135 - 145 mmol/L [facility] Urea nitrogen [Mass/Vol] 32 mg/dL High 7 - 17 mg/dL [facility] Consulton 02-22-2024 Consult [facility] Wound Care CONSULT Note Kimberly Patel AGE: 68 y.o. GENDER: female : 1955 Subjective: HISTORY of PRESENT ILLNESS HPI Kimberly Patel is a 68 y.o. female with PMH of below presented with change in metal status and fever. Wound Check focused exam HPI: Patient presents for wound check. Patient has a moisture wound which is located on the bilateral buttock . Current symptoms: drainage: minimal, serosanguinous and pink wound bed superficial. . Symptoms began present on admission 1day ago. Pain is rated 2/10. Interventions to date: barrier ointment with zinc. Incont. Care. Becky wick for urinary incont. Brief for moisture management. Low air loss mattress at [facility] .patient denies being able to make independent body position changes. Does not have good appetite. No cough. Can not lay flat HOB has to be up more than 30 degrees. PAST MEDICAL HISTORY Active Ambulatory Problems Diagnosis Date Noted Physical debility 10/12/2021 Other hyperlipidemia 10/12/2021 CAD (coronary artery disease) 10/12/2021 Primary hypertension 10/12/2021 Neuropathy 10/12/2021 Bacteremia 10/12/2021 Acute kidney injury superimposed on CKD ([facility]) ([facility]) 10/12/2021 Type 2 diabetes mellitus with diabetic polyneuropathy, with long-term current use of insulin ([facility]) 10/12/2021 Bullous pemphigoid 11/17/2022 Acute on chronic diastolic congestive heart failure ([facility]) 08/22/2022 Bipolar disorder, most recent episode depressed ([facility]) ([facility]) 02/22/2024 Resolved Ambulatory Problems Diagnosis Date Noted No Resolved Ambulatory Problems Past Medical History: Diagnosis Date CHF (congestive heart failure) ([facility]) COPD (chronic obstructive pulmonary disease) ([facility]) Diabetes mellitus ([facility]) PAST SURGICAL HISTORY Past Surgical History: Procedure Laterality Date CHOLECYSTECTOMY COLONOSCOPY throat biopsy FAMILY HISTORY No family history on file. SOCIAL HISTORY Social History Tobacco Use Smoking status: Former Smokeless tobacco: Never ALLERGIES Allergies Allergen Reactions Dulaglutide Empagliflozin Hydromorphone Metformin Morphine Ondansetron Penicillins MEDICATIONS No current facility-administered medications on file prior to encounter. Current Outpatient Medications on File Prior to Encounter Medication Sig Dispense Refill acetaminophen (Tylenol) 325 MG tablet Take 650 mg by mouth every 6 hours as needed for mild pain (1-3) or fever. Acetylcysteine (N-Acetyl Cysteine) 600 MG capsule capsule Take 600 mg by mouth in the morning and 600 mg in the evening. albuterol (2.5 MG/3ML) 0.083% nebulizer solution Take 2.5 mg by nebulization 4 times daily as needed for wheezing or shortness of breath. albuterol 108 (90 Base) MCG/ACT inhaler Inhale 2 puffs every 4 hours as needed for wheezing. aspirin 81 MG EC tablet Take 81 mg by mouth daily. atorvastatin (Lipitor) 40 MG tablet Take 40 mg by mouth daily. bisacodyl (Dulcolax) 5 MG EC tablet Take 5 mg by mouth Daily as needed for constipation. Do not crush, chew, or split. bisacodyl (Fleet Bisacodyl) 10 MG/30ML enema Insert 10 mg into the rectum Daily as needed for constipation. budesonide-formoterol (Symbicort) 160-4.5 MCG/ACT inhaler Inhale 2 puffs in the morning and 2 puffs in the evening. Rinse mouth with water after use to reduce aftertaste and incidence of candidiasis. Do not swallow.. calcium carbonate (Tums) 500 MG chewable tablet Chew 500 mg 2 times daily. clobetasol (Temovate) 0.05 % cream Apply topically 2 times daily. doxycycline (Monodox) 100 MG capsule Take 100 mg by mouth 2 times daily. Take with at least 8 ounces (large glass) of water, do not lie down for 30 minutes after dupilumab (Dupixent) 300 MG/2ML injection Inject 300 mg under the skin every 14 (fourteen) days. ergocalciferol (Vitamin D-2) 1.25 MG (41174 UT) capsule Take 1.25 mg by mouth 1 (one) time per week. Every famotidine (Pepcid) 40 MG tablet Take 40 mg by mouth daily. furosemide (Lasix) 40 MG tablet Take 40 mg by mouth in the morning and 40 mg in the evening. guaiFENesin (Robitussin) 100 MG/5ML syrup Take 200 mg by mouth 3 times daily as needed for cough. hydrOXYzine HCl (Atarax) 25 MG tablet Take 25 mg by mouth every 8 hours as needed for itching. insulin glargine (Lantus) 100 UNIT/ML injection Inject 55 Units under the skin 2 times daily. Insulin Lispro (Humalog) 100 UNIT/ML solution injection Inject under the skin 3 times daily (with meals). isosorbide mononitrate ER (Imdur) 30 MG 24 hr tablet Take 30 mg by mouth daily. Do not crush or chew. linaGLIPtin (Tradjenta) 5 MG tablet Take 5 mg by mouth daily. methenamine hippurate (Hiprex) 1 g tablet Take 1 g by mouth 2 times daily. metoprolol succinate XL (Toprol-XL) 25 MG 24 hr tablet Take 25 mg by mouth daily. Do not crush or chew. oxyCODONE-acetaminophen (Percocet) 5-325 MG tablet Take 1 tablet by mouth every 6 (more content not included)... Normal [facility] Consult [facility] - Infectious Diseases Attending Consult Note Reason for Consult: Sepsis, ESBL- E coli bacteremia. History of Present Illness: 68 y/o female was admitted on 02/21/24 from SNF due to mental status change and fever of 107F ; in ED on presentation, she was tachycardic (P 109), hypoxic (Pox 89%); labs showed leukocytosis (15.2k), elevated creatinine (1.29), lactic acidosis (2.0), pyuria (>100 wbc), CT head showed Mucosal thickening in the paranasal sinuses and fluid in the right sphenoid sinus, ceftriaxone was given in ED. She was seen, found her sleeping, wake up with vocal response, followed commands appropriately; c/o weakness, frequency of urination, doesn't walk, uses 4L O2, appeared debilitated and ill. She was examined; notes, labs, imaging were reviewed and treatment plan was discussed. Past Medical History: Past Medical History: Diagnosis Date CHF (congestive heart failure) ([facility]) COPD (chronic obstructive pulmonary disease) ([facility]) Diabetes mellitus ([facility]) Past Surgical History: Past Surgical History: Procedure Laterality Date CHOLECYSTECTOMY COLONOSCOPY throat biopsy Current Medications: Current Facility-Administered Medications Medication Dose Route Frequency Provider Last Rate Last Admin acetaminophen (Tylenol) tablet 650 mg 650 mg Oral q6h PRN Shmuel Trevino MD Or acetaminophen (Tylenol) suppository 650 mg 650 mg Rectal q6h PRN Shmuel Trevino MD aspirin EC tablet 81 mg 81 mg Oral Daily Rob Lai MD 81 mg at 02/22/24 0855 atorvastatin (Lipitor) tablet 40 mg 40 mg Oral Daily Rob Lai MD 40 mg at 02/22/24 0855 bisacodyl (Dulcolax) EC tablet 5 mg 5 mg Oral Daily PRN Rob Lai MD dextrose 5 % infusion 100 mL/hr IntraVENous PRN Shmuel Trevino MD dextrose 50 % solution 12.5 g 12.5 g IntraVENous PRN Shmuel Trevino MD enoxaparin (Lovenox) syringe 40 mg 40 mg SubCUTAneous Daily Shmuel Trevino MD 40 mg at 02/22/24 0855 ertapenem (INVanz) 1,000 mg in sodium chloride 0.9 % 50 mL IVPB Mini-Bag Plus 1,000 mg IntraVENous q24h Clare Del Cid MD Stopped at 02/22/24 1103 famotidine (Pepcid) tablet 40 mg 40 mg Oral Daily Rob Lai MD 40 mg at 02/22/24 0855 glucagon (human recombinant) injection 1 mg 1 mg IntraMUSCular PRN Shmuel Trevino MD glucose oral gel 15 g 15 g Oral PRN Shmuel Trevino MD insulin glargine (Lantus) injection 55 Units 55 Units SubCUTAneous BID Rob Lai MD Insulin Lispro (Humalog) injection 0-12 Units 0-12 Units SubCUTAneous TID WC Shmuel Trevino MD And Insulin Lispro (Humalog) injection 0-12 Units 0-12 Units SubCUTAneous Nightly Shmuel Trevino MD ipratropium-albuterol (Duo-Neb) 0.5-2.5 mg/3 mL nebulizer solution 3 mL 3 mL Nebulization q4h PRN Shmuel Trevino MD isosorbide mononitrate ER (Imdur) 24 hr tablet 30 mg 30 mg Oral Daily Rob Lai MD 30 mg at 02/22/24 0855 methenamine hippurate (Hiprex) tablet 1 g 1 g Oral BID Rob Lai MD 1 g at 02/22/24 0857 metoprolol succinate XL (Toprol-XL) 24 hr tablet 25 mg 25 mg Oral Daily Rob Lai MD 25 mg at 02/22/24 0855 naloxone (Narcan) injection 0.4 mg 0.4 mg IntraVENous q5 min PRN Shmuel Trevino MD oxyCODONE-acetaminophen (Percocet) 5-325 MG per tablet 1 tablet 1 tablet Oral q6h PRN Rob Lai MD polyethylene glycol (PEG) 3350 (Miralax) packet 17 g 17 g Oral Daily PRN Shmuel Trevino MD promethazine (Phenergan) tablet 12.5 mg 12.5 mg Oral q6h PRN Rob Lai MD Or promethazine (Phenergan) injection 12.5 mg 12.5 mg IntraMUSCular q6h PRN Rob Lai MD 12.5 mg at 02/22/24 0416 Or promethazine (Phenergan) suppository 12.5 mg 12.5 mg Rectal q6h PRN Rob Lai MD QUEtiapine (SEROquel) tablet 12.5 mg 12.5 mg Oral BID PRN Shmuel Trevino MD ranolazine (Ranexa) 12 hr tablet 1,000 mg 1,000 mg Oral BID Rob Lai MD 1,000 mg at 02/22/24 0855 senna-docusate sodium (Senokot-S) 8.6-50 MG tablet 1 tablet 1 tablet Oral Daily Rob Lai MD venlafaxine XR (Effexor XR) 24 hr capsule 75 mg 75 mg Oral Daily Rob Lai MD 75 mg at 02/22/24 0855 Allergies: Allergies Allergen Reactions Dulaglutide Empagliflozin Hydromorphone Metformin Morphine Ondansetron Penicillins Social History: Social History Socioeconomic History Marital status: Spouse name: Not on file Number of children: Not on file Years of education: Not on file Highest education level: Not on file Occupational History Not on file Tobacco Use Smoking status: Former Smokeless tobacco: Never Substance and Sexual Activity Alcohol use: Not on file Drug use: Not on file Sexual activity: Not on file Other Topics Concern Not on file Social History Narrative Home with daughter Social Determinants of Health Financial Resource Strain: Not on file Food Insecurity: No Food Insecurity (02/22/2024) Hunger Vital Sign Worried About Running Out of Food in the Last Year: Never true Ra (more content not included)... Normal [facility] Consult [facility] Geriatric Medicine Inpatient Consult Service Admission Date: 02/21/2024 Admission Status: INPATIENT Chief Complaint: Chief Complaint Patient presents with Altered Mental Status Fever Reason for Appointment Geriatrics consulted for Delirium Assessment & Plan Principal Problem: Sphenoid sinusitis, unspecified chronicity Metabolic encephalopathy --Waxing/waning --Etiology likely related to bactermia/UTI, change of environment --Encourage PO intake, time up in chair, family visits, supervised ambulation, and sleep hygiene --If agitated, assess for and consider treating for pain --QTc= 448 --No antipsychotic unless patient is danger to self/others/treatment --Start PRN melatonin at HS --Monitor for constipation/urinary retention - last BM unknown --Possible medication contributions: -avoid hydroxyzine if possible as may worsen cognition due to anticholinergic effects Bipolar disorder -per patient's daughter has been under reasonable control, does not routinely have hallucinations Functional impairment/bedbound/hoy er dependent -plan to return to facility, likely LTC Subjective: HPI 68 y.o. year-old female presented to the hospital With change in mental status. She resides at [facility] [place] and hospitalized for long-term care,She has been there for over a year. Family presented and was going to discharge back to facility however became acutely more confused emergency room and decision was made for admission. Patient is unable to provide any additional history of her recent symptoms. Discussed with bedside nursing tech, they were able to change her this morning, she was a bit more alert and interactive during that time but was irritable. Quickly fell back to sleep and has been sleeping most of the morning. Discussion with patient's daughter-she has had several hospitalizations with similar symptoms particularly when associated UTI and bloodstream infection. Reviewed medical record indicates that she has had several ED visits for change in mental status and hallucinations over the past 6 to 9 months. labs with WBC 9.6, hemoglobin 9.6, platelets 195 Sodium 132, potassium 3.9, creatinine 1.17, BUN 32 TSH within normal limits UA positive for leukocytes and nitrites, moderate bacteria, urine cultures pending. Blood culture positive for E. Coli CT head with no acute findings, mucosal thickening in paranasal sinuses Nursing Delirium Screen (Nu-Desc): Nursing Delirium Symptom Checklist Total Score: 0 Conversation with caregiver: daughter. Alexandro Cote [phone] -states that patient experiences similar symptoms with UTI/blood stream infections -has had hallucinations with infections, but doesn't usually seem to distressing/disturbing -from mental health, at her baseline she is good - states she plays on her phone, doesn't do a lot of socializing, doesn't go down for activities, doesn't like the mohamud lift. 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, goes to [facility] and has been much better controlled -has gained about 50 lbs based on the scale, did note that she has been gaining weight -bipolar has been under pretty good control for many years Advance Care Planning Code Status: Full Code Allergies Allergen Reactions Dulaglutide Empagliflozin Hydromorphone Metformin Morphine Ondansetron Penicillins Current Facility-Administered Medications: acetaminophen (Tylenol) tablet 650 mg, 650 mg, Oral, q6h PRN OR acetaminophen (Tylenol) suppository 650 mg, 650 mg, Rectal, q6h PRN, Shmuel Trevino MD aspirin EC tablet 81 mg, 81 mg, Oral, Daily, Rob Lai MD, 81 mg at 02/22/24 0855 atorvastatin (Lipitor) tablet 40 mg, 40 mg, Oral, Daily, Rob Lai MD, 40 mg at 02/22/24 0855 bisacodyl (Dulcolax) EC tablet 5 mg, 5 mg, Oral, Daily PRN, Rob Lai MD dextrose 5 % infusion, 100 mL/hr, IntraVENous, PRN, Shmuel Trevino MD dextrose 50 % solution 12.5 g, 12.5 g, IntraVENous, PRN, Shmuel Trevino MD enoxaparin (Lovenox) syringe 40 mg, 40 mg, SubCUTAneous, Daily, Shmuel Trevino MD, 40 mg at 02/22/24 0855 ertapenem (INVanz) 1,000 mg in sodium chloride 0.9 % 50 mL IVPB Mini-Bag Plus, 1,000 mg, IntraVENous, q24h, Clare Del Cid MD, Stopped at 02/22/24 1103 famotidine (Pepcid) tablet 40 mg, 40 mg, Oral, Daily, Rob Lai MD, 40 mg at 02/22/24 0855 glucagon (human recombinant) injection 1 mg, 1 mg, IntraMUSCular, PRN, Shmuel Trevino MD glucose oral gel 15 g, 15 g, Oral, PRN, Shmuel Trevino MD insulin glargine (Lantus) injection 55 Units, 55 Units, SubCUTAneous, BID, Rob Lai MD Insulin Lispro (Humalog) injection 0-12 Units, 0-12 Units, SubCUTAneous, TID WC AND Insulin Lispro (Humalog) injection 0-12 Units, 0-12 Units, SubCUTAneous, Nightly, Shmuel Cormier (more content not included)... Normal [facility] ECG 12-LEADon 02-22-2024 ECG 12-LEAD IMPRESSION: Sinus tachycardia with irregular rate Inferior infarct, old Anterior infarct, old Compared to ECG 04/30/22 Irregular rate now noted, likely PAC Electronically Signed On 02-22-2024 00:36:22 EDT by Keven Cano Normal [facility] HEMOGLOBIN A1Con 02-22-2024 Glucose [Mass/Vol] 154 mg/dL Normal [facility] Comment on above: Order Comment: If no t done within the last 3 mos Performed By: #### L [id number], [id number] #### Parts Sales Associate: STEVIE ELMORE ([id number]) [facility] [address] HbA1c (Bld) [Mass fraction] 7.0 % High <5.7 [facility] Comment on above: Order Comment: If no t done within the last 3 mos Result Comment: Norm al less than 5.7% Prediabetes 5.7% to 6.4% Diabetes 6.5% or higher --HgbA1C levels may not be accurate in patients who have renal disease, received recent blood transfusions, are anemic, or who have dyshemoglobinemia. Performed By: #### L [id number], [id number] #### Parts Sales Associate: STEVIE ELMORE ([id number]) [facility] ([facility]) [address] IDNon 02-22-2024 IDN The patient is Moderately Unstable - Medium risk of patient condition declining or worsening The patient's goals for the shift include rest The clinical goals for the shift include rest Over the shift, the patient did not make progress toward the following goals. Barriers to progression include infection. Recommendations to address these barriers include antibiotics. Normal [facility] Laboratory - Chemistry and C hemistry - challengeon 02-22-2024 Glucose [Mass/Vol] 156 mg/dL High 70 - 100 mg/dL [facility] Glucose [Mass/Vol] 168 mg/dL High 70 - 100 mg/dL [facility] Glucose [Mass/Vol] 116 mg/dL High 70 - 100 mg/dL [facility] Glucose [Mass/Vol] 150 mg/dL High 70 - 100 mg/dL [facility] Glucose [Mass/Vol] 148 mg/dL High 70 - 100 mg/dL [facility] Procalcitonin [Mass/Vol] 0.41 ng/mL High 0.00 - 0.09 ng/mL [facility] Cobalamin (Vitamin B12) [Mass/Vol] 294 pg/mL 239 - 931 pg/mL [facility] Average glucose Estimated from glycated hemoglobin (Bld) [Mass/Vol] 154 mg/dL [facility] TSH Qn 1.267 m[IU]/L [facility] [employer] Laboratory - Hematology and Cell countson 02-22-2024 HbA1c (Bld) [Mass fraction] 7.0 % High NINF - 5.7 % [facility] No Panel Informationon 02-21 Interpretation and review of laboratory results Abnormal [facility] Interpretation and review of laboratory results Abnormal [facility] Interpretation and review of laboratory results Abnormal [facility] Interpretation and review of laboratory results Abnormal [facility] Interpretation and review of laboratory results Abnormal [facility] Interpretation and review of laboratory results Abnormal [facility] CV EPIPHANY [facility] Radiology Study observation (narrative[facility]) [facility]narrative[facility] (narrative) [facility] (narrative) [facility] No Panel InformationOrdered By: Disha Smith on 02-22-2024 CTX-M (ESBL gene) Detected Abnormal Not Detected [facility] Escherichia coli Detected Abnormal Not Detected [facility] Interpretation and review of laboratory results Abnormal [facility] No Panel InformationOrdered By: Keven Cano on 02-22-2024 P [place] 7 degrees [facility] Work Phone: [place] Interval 159 ms [facility] Work Phone: QRS [place] -44 degrees [facility] Work Phone: [phone] QRSD Interval 77 ms [employer] Work Phone: QT Interval 338 ms [employer] Work Phone: QTC Interval 448 ms [facility] [employer] Work Phone: T Wave [place] 79 degrees [facility] [employer] Work Phone: [employer] Work Phone: PROCALCITONIN TESTon 024 PROCALCITONIN 0.41 ng/mL High 0.00-0.09 [facility] [employer] [facility] Comment on above: Result Comment: ORDE R COMMENTS: PCT <0.50 = Low risk of severe sepsis and/or septic shock. PCT >2.00 = High risk of severe sepsis and/or septic shock. Performed By: #### L [id number], [id number] #### Parts Sales Associate: STEVIE ELMORE ([id number]) [facility] [address] Procalcitonin [Mass/Vol]on 0 02-22-2024 Interpretation and review of laboratory results Abnormal [facility] Progress Noteon 02-22-2024 Progress Note Nutrition Assessment Type and Reason for Visit: Positive Nutrition Screen, Initial Nutrition Recommendations/Plan: Continue Regular- 4 carbohydrate choices/60 g CHO per meal diet Encourage patient to participate in room service and order well balanced meals Please record % meals consumed in flowsheet for most accurate nutrient intake assessment. Obtain updated standing vs actual bed scale weight as able for most accurate anthropometric data RDN to continue to monitor weekly: fluid accumulation, weight, skin integrity, trends in lab values, tolerance of diet and ability to meet nutrition needs, improvement in clinical status, discharge planning Malnutrition Assessment: Malnutrition Status: Insufficient data (refused assessment and NFPE) Context: Acute Illness Findings of the 6 clinical characteristics of malnutrition: Energy Intake: Unable to assess Weight Loss: Unable to assess Body Fat Loss: Unable to assess Muscle Mass Loss: Unable to assess Fluid Accumulation: Mild Extremities Hand Fretted Instrument Maker Strength: Not Performed Nutrition Assessment: 68 year old woman with PMHx: CAD, HLD, HTN, neuropathy, DMII(A1C=7.0% on 02/22/24). She presents to [facility] from SNF with AMS and reported 107*F fever. Evaluated in ED with noted labs on admit: BNP(1320), troponin(0.047->0.049-> 0.052), Ddimer(0.91), WBC(15.2), Hgb(10). Hct(31.3). Na+(134), BUN(44), Creatinine(1.29). +Initial blood cultures for E.coli and ESBL. Imaging on admit without acute process or PE. Planning to discharge back to SNF, then mental status continued to worsen, prompting admit for further workup. ID consulted and following for: ESBL- E coli bacteremia due to UTI. Planning to continue ertapenem for two weeks. Geriatrics consulted and following to support patient. Refused to work with MAMMOGRAPHY TECHNICIAN, at time of attempted assessment, noted maybe one bite taken from breakfast tray, otherwise tray untouched. Patient declined to participate in RDN assessment, stated she wanted ?to be left alone and sleep?. Bed scale weight obtained: 106.7 kg or 235.2#. Estimated Daily Nutrient Needs: Energy Requirements Based On: Kcal/kg Weight Used for Energy Requirements: [place] Weight for Energy Calculation (kg): 57 kg Total Energy Requirements (kcals/day): 1425- 1710 (25-30 kcal/kg IBW) Weight Used for Protein Requirements: Weight in Kg Used for Protein Requirements: Estimated Total Protein (g/day): 57-68 (1.0-1.2 g protein/kg IBW) Estimated Daily Total Fluid (ml/day): per MD Nutrition Related Findings: Edward score=13. +1 BLE edema noted. Meds: aspirin, lipitor, PPI, rocephin, insulin, toprol. Labs reviewed. Refused MAMMOGRAPHY TECHNICIAN this morning. Wound Type: Pressure Injury, Wound Consult Pending Current Nutrition Therapies: Adult diet Regular; 4 carb choices (60 gm/meal) Current Oral Intake Average Meal Intake: Refusing to eat Average Supplements Intake: Refusing to take Anthropometric Measures: Height: 165.1 cm (5' 5) Current Body Weight: 107 kg (235 lb 3.7 oz) Weight Source: Bed Scale Admission Body Weight: 133 kg (294 lb) (stated) Usual Body Weight: 114 kg (251 lb) (07/09/2023) % Weight Change (Calculated): -6.3 [place] Body Weight (lbs) (Calculated): 125 lbs [place] Body Weight (Kg) (Calculated): 57 kg % [place] Body Weight (Calculated): 188.2 % BMI (kg/m2) (Calculated): 39.1 Weight Adjustment For: No Adjustment BMI Categories: Obese Class 2 (BMI 35.0 -39.9) Nutrition Diagnosis: Increased nutrient needs related to acute injury/trauma as evidenced by (ESBL- E coli bacteremia due to UTI.) Altered nutrition-related lab values related to endocrine dysfuntion as evidenced by lab values Nutrition Interventions: Nutrition Education/Counseling: Education not indicated Coordination of Nutrition Care: Continue to monitor while inpatient, Speech Therapy Plan of Care discussed with: patient Goals: Goals: PO intake 50% or greater, prior to discharge Nutrition Monitoring and Evaluation: Behavioral-Environmenta l Outcomes: None Identified Food/Nutrient Intake Outcomes: Food and Nutrient Intake Physical Signs/Symptoms Outcomes: Chewing or Swallowing, Biochemical Data, GI Status, Meal Time Behavior, Weight, Skin, Fluid Status or Edema, Nutrition Focused Physical Findings, Nausea or Vomiting Discharge Planning: Too soon to determine Odalys Travis Godinez, RDN, LDN, Contact: *[phone] [facility] Progress Note OCCUPATIONAL THERAPY [facility] Name/MRN: Kimberly Patel ([id number]) Date: 02/22/2024 Chart reviewed. Spoke with T[facility], she reports pt from SNF, is bed bound at baseline, [place], and is total care. Will discharge from caseload, pt dependent Zee Gresham OT [facility] Progress Note [phone]: Please pa jasen hi [phone]) for patient care issues. [phone]: Please page [facility] Hospitalist for any issues. Subjective: Admit Date: 02/21/2024 PCP: Lucy Quick Room#: [id number]/[id number] A Kimberly Patel is a 68 y.o. female who presents with Sphenoid sinusitis, unspecified chronicity Interval History: No overnight issues. Denies chest pain, sob, abdominal pain, nausea, vomiting, diarrhea, constipation, fevers, or chills. Adult diet Regular; 4 carb choices (60 gm/meal) 24HR INTAKE/OUTPUT: No intake or output data in the 24 hours ending 02/22/24 1109 LABS: CBC: Recent Labs 02/21/24 1124 02/22/24 0407 WBC 15.2* 9.6 RBC 3.51* 3.36* HGB 10.0* 9.6* HCT 31.3* 30.2* MCV 89.2 89.9 RDW 15.8* 15.6* PLT 201 195 BMP: Recent Labs 02/21/24 1124 02/22/24 0407 NA 134* 132* K 4.3 3.9 CL 98 99 CO2 32* 29 BUN 44* 32* CREATININE 1.29* 1.17* GLUCOSE 148* 142* CALCIUM 8.7 8.2* ANIONGAP 4 5 LIVER PROFILE: Recent Labs 02/21/24 1124 02/22/24 0407 AST 21 21 ALT 19 18 BILITOT 0.6 0.6 ALKPHOS 78 75 PROT 5.7* 5.3* PT/INR: Recent Labs 02/21/24 112 PROTIME 10.5 INR 1.0 CARDIAC ENZYMES: Recent Labs 02/21/24 1124 02/21/24 1535 02/21/242024 TROPONINI 0.047* 0.049* 0.052* Procalcitonin: Lab Results Component Value Date PROCAL 0.41 (H) 02/22/2024 Objective: Vitals: BP 160/79 (BP Location: Left arm, Patient Position: Sitting) Pulse 105 Temp 36.8 ?C (98.2 ?F) (Temporal) Resp 17 Ht 5' 5 (1.651 m) Wt 293 lb 3.4 oz (133 kg) SpO2 100% BMI 48.79 kg/m? Pulse Ox: SpO2 Av.4 % Min: 96 % Max: 100 % Supplemental O2: O2 Flow Rate (L/min): 4 L/min 02/22/2024 General appearance: No apparent distress, appears stated age, AAOX Oral: Tongue is semi-moist Cardiovascular: S1/S2 heard, RRR Respiratory: Clear to auscultation bilaterally Abdomen: Soft, non-tender, non-distended bowel sounds positive Musculoskeletal: No obvious deformities seen Skin: Medications: aspirin, 81 mg, Oral, Daily atorvastatin, 40 mg, Oral, Daily enoxaparin, 40 mg, SubCUTAneous, Daily ertapenem, 1,000 mg, IntraVENous, q24h famotidine, 40 mg, Oral, Daily insulin glargine, 55 Units, SubCUTAneous, BID insulin lispro, 0-12 Units, SubCUTAneous, TID WC And insulin lispro, 0-12 Units, SubCUTAneous, Nightly isosorbide mononitrate ER, 30 mg, Oral, Daily methenamine hippurate, 1 g, Oral, BID metoprolol succinate XL, 25 mg, Oral, Daily ranolazine, 1,000 mg, Oral, BID senna-docusate sodium, 1 tablet, Oral, Daily venlafaxine XR, 75 mg, Oral, Daily Assessment Acute metabolic encephalopathy due to UTI. E. coli UTI. Positive blood cultures with E. coli. Sphenoid sinusitis. Elevated troponin due to demand ischemia Stage II pressure ulcer left buttock Chronic problems CHF with preserved EF. COPD Chronic respiratory failure Hypertension DM Morbid obesity Plan Change IV Rocephin to IV ertapenem. Added urine culture. Consult ID. Check ultrasound kidney to rule out obstruction per stewardship recommendations. Repeat blood cultures in AM. Monitor blood sugars, blood pressures. Geriatrics consulted PT, OT -am labs, replace lytes prn -increase activity Diet Adult diet Regular; 4 carb choices (60 gm/meal) DVT Prophylaxis [x] Lovenox, [] Heparin, [] SCDs, [] Ambulation [] Already on Anticoagulation GI Prophylaxis [] PPI, [x] H2 Ирина, [] Carafate, [] Diet/Tube Feeds Code Status Full Code MDM [] Low, [] Moderate,[x] High Patient's risk as above Anticipated Discharge - Date -02/24 - Location - Skilled Facility - Pending the following -clinical improvement, clearance of bacteremia, software developer consultant recommendations, workup Total time spent (which include face to face and non face to face encounters) : 52 minutes Toxic drug monitoring/narrow therapeutic index drug monitoring : # Drug name : # Route administered : # Method of monitoring : Extended Emergency Contact Information Primary Emergency Contact: Alexandro Cote Mobile Relation: Daughter Preferred language: Mone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 Advance Directive: Full Code Discharge planning: PANCHITO DEL CID MD Division of Hospitalist Medicine Inpatient Medical Services/[facility] Progress Note PHYSICAL THERAPY [facility] Name/MRN: Kimberly Patel ([id number]) Date: 02/22/2024 Chart reviewed. Spoke with [facility], she reports pt from SNF, is bed bound at baseline, [place], and is total care. Will discharge from caseload, pt dependent Moe Mcelroy PT [facility] Progress Note OCCUPATIONAL THERAPY [facility] Name/MRN: Kimberly Patel ([id number]) Date: 02/22/2024 Chart reviewed. Introduced self and role, pt declines therapy adamantly. Will re-attempt as schedule permits Zee Gresham OT [facility] Progress Note PHYSICAL THERAPY [facility] Name/MRN: Kimberly Patel ([id number]) Date: 02/22/2024 Chart reviewed. Introduced self and role, pt declines therapy adamantly. Will re-attempt as schedule permits Moe Mcelroy, PT Normal [facility] Progress Note Speech-Language Pathology Pt's chart reviewed. Admitted with AMS and fever. Pt on CON, CHO, NSP Regular thin diet per MAR from nursing facility. Order acknowledged for Bedside swallowing evaluation. Pt deferred at this time. I will eat when I'm ready. I'm tired and going to sleep. ST will continue to follow as appropriate. Normal [facility] THYROID STIMULATING HORMONEo n 02-22-2024 THYROID STIMULATING HORMONE 1.267 uIU/mL Normal 0.465-4.680 [facility] Comment on above: Performed By: #### L [id number], [id number] #### Parts Sales Associate: STEVIE ELMORE ([id number]) [facility] ([facility] [address] [place] [address] TSH Qnon 02-22-2024 Interpretation and review of laboratory results Normal [facility] US Kidneyon 02-22-2024 [facility] RADIOLOGY SYSTEM [facility] KidneyOrdered By: Edwin johnson on 02-22-2024 [facility] Work Phone: US RENAL COMPLETEon 02-22-20 24 US RENAL COMPLETE Patient Name: KIMBERLY PATEL : 1955 Exam Date/Time: 02/22/2024 17:23 Procedure: US RENAL COMPLETE Ordering Provider: DEL CID DEEPTHI Reason For Exam: r/o obstruction Examination: Renal ultrasound Clinical Indication: r/o obstruction Comparison: Correlation with CTA chest partial yesterday and ultrasound May 02, 2022 Findings: Multiplanar grayscale sonographic images were obtained through the kidneys and bladder. The right kidney measures 10.5 x 5.2 x 5.5 cm. No renal cysts. Stable cortical thinning. No solid renal parenchymal lesion, hydronephrosis, or shadowing renal calculus. Normal echotexture. The left kidney measures 11.4 x 5.2 x 5.4 cm. No renal cysts. No solid renal parenchymal lesion, hydronephrosis, or shadowing renal calculus. Normal echotexture. The urinary bladder is partially distended and overall suboptimally visualized. IMPRESSION: Impression: Stable sonographic appearance of the kidneys, including the right renal cortical thinning. No hydronephrosis. Report Dictated on Electronically Signed By: Edwin Vaz MD Electronically Signed Date/Time: 02/22/2024 6:06 PM EDT Normal [facility] VITAMIN B12on 02-22-2024 Cobalamin (Vitamin B12) [Mass/Vol] 294 pg/mL Normal 239-931 [facility] Comment on above: Performed By: #### L [id number], [id number] #### Parts Sales Associate: STEVIE ELMORE ([id number]) [facility] ([facility]) [address] [place] [address] Vital signsOrdered By: Lory Cano on 02-22-2024 Heart rate 106 /min bpm [facility] [employer] Work Phone: BLOOD CULTUREon 02-21-2024 Bacteria identified Cx Nom (Bld) BLOOD CULTURE (AA) Reference ESCHERICHIA COLI Escherichia coli (AA) This phenotype is suggestive of an ESBL-producing organism. Treatment with beta-lactam antibiotics other than carbapenems may not be effective. This is an edited result. Previous organism was Gram-negative bacilli on 02/22/2024 at 0622 EDT. ORDER COMMENTS: Blood Collection Site: Right Wrist Organism: ESCHERICHIA COLI Antibiotic ASHU Interpretation Status Ampicillin R F Ampicillin / Sulbactam R F Aztreonam >=64 ug/ml R F Cefazolin R F Cefepime R F Ceftriaxone >=64 ug/ml R F Ciprofloxacin >=4 ug/ml R F Gentamicin <=1 ug/ml S F Meropenem <=0.25 ug/ml S F Piperacillin / Tazobactam R F Trimethoprim / Sulfamethoxazole >=320 ug/ml R F [ S = SUSCEPTIBLE R = RESISTANT I = INTERMEDIATE S-DD = Susceptible-dose dependent NS = Non-susceptible NO = No Interpretation ] Normal [facility] Comment on above: Performed By: #### L [id number], [id number] ####Parts Sales Associate: SILVIA FRENCH ([id number])[facility] ([facility])[address] [place] [address] BLOOD CULTURE IDENTIFICATION - ANAEROBICon 02-21-2024 BLOOD CULTURE IDENTIFICATION - ANAEROBIC ESCHERICHIA COLI, BLOOD (A) Reference Detected Not Detected CTX-M ESBL, BLOOD (A) Reference Detected Not Detected ORDER COMMENTS: (A) Methodology: Multiplex PCR The [employer] BCID panel can detect the following organisms: E. faecalis, E. faecium, Staphylococcus spp., S. aureus, S. epidermidis, S. lugdunensis, Streptococcus spp., S. pyogenes (Group A), S. agalactiae (Group B), S. pneumoniae, A. baumannii complex, B. fragilis, H. influenzae, N. meningitidis, P. aeruginosa, S. maltophilia, Enterobacterales, E. cloacae complex, E. coli, K. aerogenes, K. oxytoca, K. pneumoniae, Proteus spp., Salmonella spp., S. marcescens, C. albicans, C. auris, C. glabrata, C. krusei, C. parapsilosis, C. tropicalis, and C. neoformans/gattii. The following antimicrobial resistance genes are reported if appropriate organisms are detected: mecA/C and Alex/B. The following antimicrobial resistance genes are reported if detected and the appropriate organisms are detected: CTX-M, IMP, KPC, NDM, OXA-48-like, VIM, and mcr-1. Normal [facility] Comment on above: Performed By: #### L [id number], [id number] ####Parts Sales Associate: SILVIA FRENCH ([id number])[facility] ([facility])[address] [place] [address] CBC W Auto Differential pane l (Bld)on 02-21-2024 Basophils (Bld) [#/Vol] 0.0 10*3/uL 0.0 - 0.2 10*3/uL [facility] Basophils/100 WBC (Bld) 0.2 % 0.0 - 2.0 % [facility] Eosinophils (Bld) [#/Vol] 0.1 10*3/uL 0.0 - 0.5 10*3/uL [facility] Eosinophils/100 WBC (Bld) 0.4 % 0.0 - 6.0 % [facility] Erythrocyte distribution width (RBC) [Ratio] 15.8 % High 11.5 - 15.0 % [facility] Hematocrit (Bld) [Volume fraction] 31.3 % Low 35.0 - 47.0 % [facility] Hemoglobin (Bld) [Mass/Vol] 10.0 g/dL Low 11.7 - 16.0 g/dL [facility] Immature granulocytes (Bld) [#/Vol] 0.4 10*3/uL High NINF - 0.1 10*3/uL [facility] Immature granulocytes/100 WBC (Bld) 2.4 % High 0.0 - 2.0 % [facility] Interpretation and review of laboratory results Abnormal [facility] Lymphocytes (Bld) [#/Vol] 1.0 10*3/uL 1.0 - 4.3 10*3/uL [facility] Lymphocytes/100 WBC (Bld) 6.3 % Low 15.0 - 45.0 % [facility] MCH (RBC) [Entitic mass] 28.5 pg 26.0 - 34.0 pg [facility] MCHC (RBC) [Mass/Vol] 31.9 % 30.5 - 36.0 % [facility] MCV (RBC) [Entitic vol] 89.2 fL 77.0 - 99.0 fL [facility] Monocytes (Bld) [#/Vol] 1.3 10*3/uL High 0.0 - 0.9 10*3/uL [facility] Monocytes/100 WBC (Bld) 8.3 % 5.0 - 13.0 % [facility] Neutrophils (Bld) [#/Vol] 12.5 10*3/uL High 1.8 - 7.5 10*3/uL [facility] Neutrophils/100 WBC (Bld) 82.4 % High 38.0 - 82.0 % [facility] Nucleated RBC/100 WBC (Bld) [Ratio] 0.0 % [facility] [employer] Platelet mean volume (Bld) [Entitic vol] 8.5 fL Low 9.0 - 12.7 fL [facility] Platelets (Bld) [#/Vol] 201 10*3/uL 140 - 440 10*3/uL [facility] RBC (Bld) [#/Vol] 3.51 10*6/uL Low 3.80 - 5.2 0 10*6/uL [facility] WBC (Bld) [#/Vol] 15.2 10*3/uL High 3.6 - 10.7 10*3/uL [facility] CBC WITH AUTO DIFFERENTIALon 02-21-2024 Basophils (Bld) [#/Vol] 0.0 10*3/uL Normal 0.0-0.2 [facility] Comment on above: Performed By: #### L [id number] ####Parts Sales Associate: STEVIE ELMORE ([id number])[facility] [place] [facility] Basophils/100 WBC (Bld) 0.2 % Normal 0.0-2.0 [facility] Comment on above: Performed By: #### L [id number] ####Parts Sales Associate: STEVIE ELMORE ([id number])[facility] [place] [address] Eosinophils (Bld) [#/Vol] 0.1 10*3/uL Normal 0.0-0.5 [facility] Comment on above: Performed By: #### L [id number] ####Parts Sales Associate: STEVIE ELMORE ([id number])[facility] [place] [address] Eosinophils/100 WBC (Bld) 0.4 % Normal 0.0-6.0 [facility] Comment on above: Performed By: #### L [id number] ####Parts Sales Associate: STEVIE ELMORE ([id number])[facility] [place] ([facility])[address] [place] [address] Erythrocyte distribution width (RBC) [Ratio] 15.8 % High 11.5-15.0 [facility] Comment on above: Performed By: #### L [id number] ####Parts Sales Associate: STEVIE ELMORE ([id number])[facility] ([facility])[address] [place] [address] Hematocrit (Bld) [Volume fraction] 31.3 % Low 35.0-47.0 [facility] Comment on above: Performed By: #### L [id number] ####Parts Sales Associate: STEVIE ELMORE ([id number])[facility] [address] Hemoglobin (Bld) [Mass/Vol] 10.0 g/dL Low 11.7-16.0 [facility] Comment on above: Performed By: #### L [id number] ####Parts Sales Associate: STEVIE ELMORE ([phone])[facility] ([facility] IMMATURE GRANS % 2.4 % High 0.0-2.0 [facility] Comment on above: Performed By: #### L [id number] ####Parts Sales Associate: STEVIE PUTNAMPERICO ([phone])[facility] IMMATURE GRANS ABSOLUTE 0.4 10*3/uL High <0.1 [facility] Comment on above: Performed By: #### L [id number] ####Parts Sales Associate: STEVIE ELMORE ([phone])[facility] Lymphocytes (Bld) [#/Vol] 1.0 10*3/uL Normal 1.0-4.3 [facility] Comment on above: Performed By: #### L [id number] ####Parts Sales Associate: STEVIE ELMORE ([phone])[facility] Lymphocytes/100 WBC (Bld) 6.3 % Low 15.0-45.0 [facility] Comment on above: Performed By: #### L [id number] ####Parts Sales Associate: STEVIE ELMORE ([phone])[facility] MCH (RBC) [Entitic mass] 28.5 pg Normal 26.0-34.0 [facility] Comment on above: Performed By: #### L [id number] ####Parts Sales Associate: STEVIE MOYASuPERICO ([phone])[facility] [place] ([facility])[address] MCHC 31.9 % Normal 30.5-36.0 [facility] Comment on above: Performed By: #### L [id number] ####Parts Sales Associate: STEVIE CATARINA ([phone])[facility] ([facility])[address] MCV (RBC) [Entitic vol] 89.2 fL Normal 77.0-99.0 [facility] Comment on above: Performed By: #### L [id number] ####Parts Sales Associate: STEVIE CATARINA ([phone])[facility] ([facility])[address] [place] [address] Monocytes (Bld) [#/Vol] 1.3 10*3/uL High 0.0-0.9 [facility] Comment on above: Performed By: #### L [id number] ####Parts Sales Associate: STEVIE CATARINA ([phone])[facility] ([facility])[address] Monocytes/100 WBC (Bld) 8.3 % Normal 5.0-13.0 [facility] Comment on above: Performed By: #### L [id number] ####Parts Sales Associate: STEVIE PUTNAMPERICO ([phone])[facility] [place] ([facility])[address] [place] [address] [place] NEUTROPHILS ABSOLUTE 12.5 10*3/uL High 1.8-7.5 [facility] Comment on above: Performed By: #### L [id number] ####Parts Sales Associate: STEVIE PUTNAMPERICO ([phone])[facility] ([facility])[address] Neutrophils/100 WBC (Bld) 82.4 % High 38.0-82.0 [facility] Comment on above: Performed By: #### L [id number] ####Parts Sales Associate: STEVIE MOYASuPERICO ([phone])[facility] [place] ([facility])[address] NRBC 0.0 /100 WBCs Normal 0.0-2.0 [facility] Comment on above: Performed By: #### L [id number] ####Parts Sales Associate: STEVIE PUTNAMPERICO ([phone])[facility] [place] ([facility])[address] Platelet mean volume (Bld) [Entitic vol] 8.5 fL Low 9.0-12.7 [facility] Comment on above: Performed By: #### L [id number] ####Parts Sales Associate: STEVIE MOYAFAHAD ([phone])[facility] [place] ([facility])[address] Platelets (Bld) [#/Vol] 201 10*3/uL Normal 140-440 [facility] Comment on above: Performed By: #### L [id number] ####Parts Sales Associate: STEVIE MOYAFAHAD ([phone])[facility] [place] ([facility])[address] RBC (Bld) [#/Vol] 3.51 10*6/uL Low 3.80-5.20 [facility] Comment on above: Performed By: #### L [id number] ####Parts Sales Associate: STEVIE ELMORE ([phone])[facility] [place] [facility])[address] WBC (Bld) [#/Vol] 15.2 10*3/uL High 3.6-10.7 [facility] Comment on above: Performed By: #### L [id number] ####Parts Sales Associate: STEVIE ELMORE ([phone])[facility] [place] ([facility])[address] COMPLETE URINALYSISon 2023 BACTERIA (#/HPF) IN URINE Moderate Abnormal Negative [facility] Comment on above: Performed By: #### L [id number] ####Parts Sales Associate: STEVIE PUTNAMPERICO ([phone])[facility] ([facility])[address] BILIRUBIN, TOTAL PRESENCE IN URINE Negative Normal Negative [facility] Comment on above: Performed By: #### L [id number] ####Parts Sales Associate: STEVIE ELMORE ([phone])[facility] ([facility])[address] Clarity (U) Turbid Abnormal Clear [facility] Comment on above: Performed By: #### L [id number] ####Parts Sales Associate: STEVIE PUTNAMPERICO ([phone])[facility] Color (U) Yellow Normal Lt. Yellow [facility] Comment on above: Performed By: #### L [id number] ####Parts Sales Associate: STEVIE ELMORE ([phone])[facility] GLUCOSE (MG/DL) IN URINE Normal Normal Normal (<70) [facility] Comment on above: Performed By: #### L [id number] ####Parts Sales Associate: STEVIE PUTNAMPERICO ([phone])[facility] HEMOGLOBIN PRESENCE IN URINE 0.2 mg/dL Abnormal Negative [facility] Comment on above: Performed By: #### L [id number] ####Parts Sales Associate: STEVIE PUTNAMPERICO ([phone])[facility] ([facility])[address] Ketones Ql (U) Negative Normal Negative [facility] Comment on above: Performed By: #### L [id number] ####Parts Sales Associate: STEVIE ELMORE ([phone])[facility] ([facility])[address] LEUKOCYTE ESTERASE PRESENCE IN URINE BY TEST STRIP 500 Ha/uL Abnormal Negative [facility] Comment on above: Performed By: #### L [id number] ####Parts Sales Associate: STEVIE ELMORE ([phone])[facility] ([facility])[address] [place] [address] MUCUS (#/LPF) IN URINE SEDIMENT Few Normal Negative [facility] Comment on above: Performed By: #### L [id number] ####Parts Sales Associate: STEVIE ELMORE ([phone])[facility] NITRITE PRESENCE IN URINE Positive Abnormal Negative [facility] Comment on above: Performed By: #### L [id number] ####Parts Sales Associate: STEVIE ELMORE ([phone])[facility] ([facility])[address] [place] [address] pH (U) 6.0 [pH] Normal 5.0-8.0 [facility] Comment on above: Performed By: #### L [id number] ####Parts Sales Associate: STEVIE ELMORE ([id number])[facility] [place] [address] Protein (U) [Mass/Vol] 30 mg/dL Abnormal Negative [facility] Comment on above: Performed By: #### L [id number] ####Parts Sales Associate: STEVIE ELMORE ([phone])[facility] [place] [address] [place] RBC (#/HPF) IN URINE SEDIMENT 6-10 Abnormal 0-2 [facility] Comment on above: Performed By: #### L [id number] ####Parts Sales Associate: STEVIE ELMORE ([phone])[facility] [place] [address] Specific gravity (U) [Rel density] 1.046 High 1.005-1.030 [facility] Comment on above: Performed By: #### L [id number] ####Parts Sales Associate: STEVIE ELMORE ([id number])[facility] [place] ([facility])[address] SQUAMOUS EPITHELIAL CELLS (#/HPF) IN URINE SEDIMENT 6-10 Abnormal 3-5 [facility] Comment on above: Performed By: #### L [id number] ####Parts Sales Associate: STEVIE ELMORE ([phone])[facility] [place] ([facility])[address] UROBILINOGEN (MG/DL) IN URINE Normal Normal Normal (0-1) [facility] Comment on above: Performed By: #### L [id number] ####Parts Sales Associate: STEVIE ELMORE ([phone])[facility] [place] ([facility])[address] [place] [address] WBC (LEUKOCYTE) (#/HPF) IN URINE SEDIMENT >100 Abnormal 0-5 [facility] Comment on above: Performed By: #### L [id number] ####Parts Sales Associate: STEVIE ELMORE ([phone])[facility] ([facility] [place] [address] COMPREHENSIVE METABOLIC PANE Wade 02-21-2024 Albumin [Mass/Vol] 2.9 g/dL Low 3.5-5.0 [facility] Comment on above: Performed By: #### L AB103, LAB17 #### Parts Sales Associate: STEVIE ELMORE ([id number]) [facility] ([facility] [address] ALP [Catalytic activity/Vol] 78 U/L Normal 38-126 [facility] Comment on above: Performed By: #### L AB103, LAB17 #### Parts Sales Associate: STEVIE ELMORE ([phone]) [facility] ([facility]) [address] ALT [Catalytic activity/Vol] 19 U/L Normal 0-34 [facility] Comment on above: Performed By: #### L AB103, LAB17 #### Parts Sales Associate: STEVIE ELMORE ([id number]) [facility] ([facility]) [address] [place] [address] [place] Anion gap [Moles/Vol] 4 mmol/L Normal 3-13 [facility] Comment on above: Performed By: #### L AB103, LAB17 #### Parts Sales Associate: STEVIE ELMORE ([id number]) [facility] ([facility] [address] [place] [address] [place] AST [Catalytic activity/Vol] 21 U/L Normal 15-46 [facility] Comment on above: Performed By: #### L AB103, LAB17 #### Parts Sales Associate: STEVIE ELMORE ([phone]) [facility] ([facility]) [address] Bilirubin [Mass/Vol] 0.6 mg/dL Normal 0.2-1.3 [facility] Comment on above: Performed By: #### L AB103, LAB17 #### Parts Sales Associate: STEVIE ELMORE ([phone]) [facility] ([facility]) [address] [place] [address] [place] Calcium [Mass/Vol] 8.7 mg/dL Normal 8.4-10.4 [facility] Comment on above: Performed By: #### L AB103, LAB17 #### Parts Sales Associate: STEVIE ELMORE ([phone]) [facility] ([facility]) [address] [place] [address] [place] Chloride [Moles/Vol] 98 mmol/L Normal 98-107 [facility] Comment on above: Performed By: #### L AB103, LAB17 #### Parts Sales Associate: STEVIE ELMORE ([phone]) [facility] [place] ([facility]) [address] [place] [address] [place] CO2 [Moles/Vol] 32 mmol/L High 22-30 [facility] Comment on above: Performed By: #### L AB103, LAB17 #### Parts Sales Associate: STEVIE ELMORE ([id number]) [facility] [place] ([facility] [address] Creatinine [Mass/Vol] 1.29 mg/dL High 0.52-1.04 [facility] Comment on above: Performed By: #### L AB103, LAB17 #### Parts Sales Associate: STEVIE ELMORE ([id number]) [facility] ([facility]) [address] [place] [address] [place] GLOMERULAR FILTRATION RATE ML/MIN/1.73 SQ M.PREDICTED 45.9 mL/min/1.73m*2 Low >60.0 [facility] Comment on above: Result Comment: Calc ulation based on the Chronic Kidney Disease Epidemiology Collaboration (CKD-EPI) equation refit without adjustment for race Performed By: #### L AB103, LAB17 #### Parts Sales Associate: STEVIE ELMORE ([phone]) [facility] ([facility] [address] Glucose [Mass/Vol] 148 mg/dL High 70-100 [facility] Comment on above: Performed By: #### L AB103, LAB17 #### Parts Sales Associate: STEVIE ELMORE ([phone]) [facility] ([facility]) [address] Potassium [Moles/Vol] 4.3 mmol/L Normal 3.5-5.1 [facility] Comment on above: Performed By: #### L AB103, LAB17 #### Parts Sales Associate: STEVIE ELMORE ([phone]) [facility] ([facility]) [address] [place] [address] [place] Protein [Mass/Vol] 5.7 g/dL Low 6.3-8.2 [facility] Comment on above: Performed By: #### L AB103, LAB17 #### Parts Sales Associate: STEVIE ELMORE ([phone]) [facility] ([facility]) [address] [place] [address] [place] Sodium [Moles/Vol] 134 mmol/L Low 135-145 [facility] Comment on above: Performed By: #### L AB103, LAB17 #### Parts Sales Associate: STEVIE ELMORE ([phone]) [facility] ([facility]) [address] Urea nitrogen [Mass/Vol] 44 mg/dL High 7-17 [facility] Comment on above: Performed By: #### L AB103, LAB17 #### Parts Sales Associate: STEVIE ELMORE ([id number]) [facility] ([facility]) [address] COVID-19, Flu A/B, and RSV C omboon 02-21-2024 Interpretation and review of laboratory results Normal [facility] CT CHEST ANGIOGRAM W AND/OR WO IV CONTRASTon 02-21-2024 CT CHEST ANGIOGRAM W AND/OR WO IV CONTRAST Patient Name: KIMBERLY PATEL : 1955 Exam Date/Time: 02/21/2024 13:41 Procedure: CT CHEST ANGIOGRAM W AND/OR WO IV CONTRAST Ordering Provider: STEWART NISHIT Reason For Exam: Pulmonary embolism (PE) suspected, positive D-dimer EXAMINATION: CT CHEST ANGIOGRAM W AND/OR WO IV CONTRAST CLINICAL HISTORY: Pulmonary embolism (PE) suspected, positive D-dimer COMPARISON: None TECHNIQUE: Axial images of the chest were obtained from above the lung apices through the level of the adrenal glands during the bolus administration of intravenous contrast. Multiplanar and 3D maximum intensity projection reformulation's were created from the raw CT data which were interpreted in conjunction with the axial images to render the findings listed below. Dose reduction was employed with automated exposure control. FINDINGS: Exam Quality: Overall exam quality is suboptimal. Pulmonary arterial enhancement is optimal, the breath hold is suboptimal, and there are significant artifacts impacting image quality. Pulmonary Arteries: There are no filling defects within the pulmonary arterial system to suggest pulmonary embolus, to the segmental level. Cardiovasculature: The heart is large. Severe three-vessel coronary calcification. Atherosclerotic calcifications within the thoracic aorta. Mediastinum/Pericardium : There is a hiatal hernia. Pleura: Unremarkable Central Airways: Widely patent Lungs: Motion artifact. No focal consolidation. Nodules: No nodules are present that require follow up. Lymph Nodes: No thoracic lymphadenopathy is evident. Visualized musculoskeletal structures: No acute fracture or destructive osseous lesion is identified. Included images of the upper abdomen: Unremarkable IMPRESSION: 1. No PE identified. PE cannot be evaluated beyond the pulmonary artery proximal segmental level due to study limitations above. 2. No acute pulmonary abnormalities. 3. Cardiomegaly and three-vessel coronary artery calcification. Report Dictated on Electronically Signed By: Fraknie Patel MD Electronically Signed Date/Time: 02/21/2024 1:56 PM EDT Fever, elevated d-dimer Normal [facility] CT HEAD WO IV CONTRASTon CT HEAD WO IV CONTRAST [facility] Name[facility]IM[facility] 1955 [id number] Exam Date/Time: 02/21/2024 11:44 Procedure: CT HEAD WO IV CONTRAST Ordering Provider: STEWART NISHIT Reason For Exam: Mental status change, unknown cause CT HEAD WITHOUT CONTRAST CLINICAL HISTORY: Mental status change, unknown cause COMPARISON: 10/02/2021 TECHNIQUE: Helical CT of the brain without contrast. Dose reduction was employed with automated exposure control. FINDINGS: Acute Findings: No hemorrhage, mass, or infarct. Chronic Changes: None identified. Ventricles and sulci: Stable generalized parenchymal volume loss. No hydrocephalus. Other: Opacified right sphenoid sinus and mucosal thickening in the left sphenoid sinus, posterior ethmoid air cell, and right maxillary sinus. Retained fluid partially opacifies the mastoid air cells bilaterally. No acute osseous findings. IMPRESSION: 1. No acute intracranial abnormalities. 2. Mucosal thickening in the paranasal sinuses and fluid in the right sphenoid sinus. Please correlate for sinusitis. Report Dictated on Electronically Signed By: Frankie Patel MD Electronically Signed Date/Time: 02/21/2024 11:55 AM EDT SNF sends patient by ambulance due to mental status change and fever of 107F. Patient was given PO Tylenol 1000mg. Per ED notes. Pt 98.1 when vitals taken here. Normal [facility] CT Head WO contraston 2023 [facility] RADIOLOGY [facility] RADIOLOGY [facility] Radiology Study observation (narrative) [facility] Head WO contrastOrdered B y: Frankie Patel on 02-21-2024 [facility] Work Phone: CTA Chest vessels WO and W c ontrast Will 02-21-2024 [facility] RADIOLOGY SYSTEM [facility] Radiology [facility]narrative[facility] 1998 panelon 02-21-2024 Albumin [Mass/Vol] 2.9 g/dL Low 3.5 - 5.0 g/dL [facility] ALP [Catalytic activity/Vol] 78 U/L 38 - 126 U/L [facility] ALT [Catalytic activity/Vol] 19 U/L 0 - 34 U/L [facility] Anion gap [Moles/Vol] 4 mmol/L 3 - 13 mmol/L [facility] AST [Catalytic activity/Vol] 21 U/L 15 - 46 U/L [facility] Bilirubin [Mass/Vol] 0.6 mg/dL 0.2 - 1 .3 mg/dL [facility] Calcium [Mass/Vol] 8.7 mg/dL 8.4 - 10. 4 mg/dL [facility] Chloride [Moles/Vol] 98 mmol/L 98 - 10 7 mmol/L [facility] CO2 [Moles/Vol] 32 mmol/L High 22 - 30 mmol/L [facility] Creatinine [Mass/Vol] 1.29 mg/dL High 0.52 - 1.04 mg/dL [facility] GFR/1.73 sq M.predicted MDRD (S/P/Bld) [Vol rate/Area] 45.9 mL/min/{1.73_m2} Low - PINF [facility] th Glucose [Mass/Vol] 148 mg/dL High 70 - 100 mg/dL [facility] Interpretation and review of laboratory results Abnormal [facility] Potassium [Moles/Vol] 4.3 mmol/L 3.5 - 5.1 mmol/L [facility] Protein [Mass/Vol] 5.7 g/dL Low 6.3 - 8.2 g/dL [facility] Sodium [Moles/Vol] 134 mmol/L Low 135 - 145 mmol/L [facility] Urea nitrogen [Mass/Vol] 44 mg/dL High 7 - 17 mg/dL [facility] D-DIMER,QUANTITATIVEon 02-20 D-DIMER, INNOVANCE 0.91 mg/L High <0.50 [facility] Comment on above: Result Comment: PARUL Ponce COMMENTS: [employer] D-Dimer values of <0.50 mg/L FEU can be used in combination with a pre-test probability model (e.g. Well's) to exclude pulmonary embolism (PE) disease, as well as an aid in the diagnosis of deep vein thrombosis (DVT). Performed By: #### L AB313, [id number] ####Parts Sales Associate: STEVIE ELMORE ([phone])[facility] ([facility])[address] [place] [address] ED Nursing Noteon 02-21-2024 ED Nursing Note This RN spoke with patient at this time. Patient educated on the in and out of confusion that she has experienced and the results of UA. Patient educated that physician aware that she would like to speak with them. Patient agrees to stay at this time. Anoop Osborne RN 02/21/24 2114 Normal [facility] ED Nursing Note Upon this RN going t o patient room to assist on getting ready for transport, patient began speaking incomprehensible wording. Patient not making sense to this RN. Patient baseline is A&Ox3. Patient asked this RN to Shut the front door as you come in to the barn. ED physician made aware, as well as transport. Anoop Osborne RN 02/21/24 1815 Normal [facility] ED Nursing Note This RN asked patien t to check to ensure proper placement of pure wick for urine collection. Patient refused. Anoop Osborne RN 02/21/24 1701 Normal [facility] ED Nursing Note Patient to CT/XR via bed at this time. Anoop Osborne RN 02/21/24 1142 Normal [facility] ED Nursing Note Second set of cultur es drawn at this time and left at bedside, awaiting orders. Anoop Osborne RN 02/21/24 1535 Normal [facility] ED Nursing Note SNF sends patient by ambulance due to mental status change and fever of 107F. Patient was given PO Tylenol 1000mg. Normal [facility] ED Provider Noteon ED Provider Note EMERGENCY DEPARTMENT ENCOUNTER Pt Name: Kimberly Patel Birthdate 1955 Date of evaluation: 02/21/2024 CHIEF COMPLAINT Chief Complaint Patient presents with ? Altered Mental Status ? Fever HISTORY OF PRESENT ILLNESS HPI Kimberly Patel is a 68 y.o. female who presents to the emergency department with fever or report temperature was 107 ?F, she had change in mental status of decreased interaction. At baseline she is wheelchair-bound. She denies any pain currently. At baseline she wears 4 L nasal cannula. REVIEW OF SYSTEMS Review of Systems Patient Active Problem List Diagnosis ? Physical debility ? Other hyperlipidemia ? CAD (coronary artery disease) ? Primary hypertension ? Neuropathy ? Bacteremia ? Acute kidney injury superimposed on CKD (HCC) (HCC) ? Type 2 diabetes mellitus with diabetic polyneuropathy, with long-term current use of insulin (HCC) CURRENT MEDICATIONS Previous Medications No medications on file ALLERGIES Dulaglutide, Empagliflozin, Hydromorphone, Metformin, Morphine, Ondansetron, and Penicillins FAMILY HISTORY No family history on file. SOCIAL HISTORY Social History Socioeconomic History ? Marital status: Tobacco Use ? Smoking status: Former ? Smokeless tobacco: Never Social History Narrative Home with daughter Social Determinants of Health Tobacco Use: Medium Risk (10/19/2021) Patient History ? Smoking Tobacco Use: Former ? Smokeless Tobacco Use: Never ? Passive Exposure: Not on file Alcohol Use: Not on file Financial Resource Strain: Not on file Food Insecurity: Not on file Transportation Needs: Not on file Physical Activity: Not on file Stress: Not on file Social Connections: Not on file Intimate Partner Violence: Not on file Depression: Not on file Housing Stability: Not on file Utilities: Not on file PHYSICAL EXAM Vitals: 02/21/24 1031 02/21/24 1114 02/21/24 1534 BP: 104/79 115/82 BP Location: Left arm Left arm Patient Position: Lying Lying Pulse: 109 102 Resp: 14 16 Temp: 36.7 ?C (98.1 ?F) TempSrc: Oral SpO2: (!) 89% 100% 100% Weight: 133 kg (294 lb) Physical Exam Vitals and nursing note reviewed. Constitutional: General: She is in acute distress. Appearance: She is obese. She is ill-appearing and toxic-appearing. Eyes: Extraocular Movements: Extraocular movements intact. Conjunctiva/sclera: Conjunctivae normal. Pupils: Pupils are equal, round, and reactive to light. Cardiovascular: Rate and Rhythm: Regular rhythm. Tachycardia present. Heart sounds: Normal heart sounds. Pulmonary: Effort: Pulmonary effort is normal. Breath sounds: Normal breath sounds. Musculoskeletal: Cervical back: No rigidity. Right foot: Swelling present. Left foot: Swelling present. Neurological: Mental Status: She is alert and oriented to person, place, and time. Cranial Nerves: Cranial nerves 2-12 are intact. Sensory: Sensation is intact. Motor: No tremor. Coordination: Tlfbxd-Utci-Ydvthk Test normal. Psychiatric: Attention and Perception: Perception normal. Speech: Speech is delayed. SCREENINGS Medical decision making Medical Decision Making Problems Addressed: Bilateral lower extremity edema: complicated acute illness or injury Fever, unspecified fever cause: complicated acute illness or injury Sphenoid sinusitis, unspecified chronicity: complicated acute illness or injury Amount and/or Complexity of Data Reviewed Labs: ordered. Decision-making details documented in ED Course. Radiology: ordered. Decision-making details documented in ED Course. ECG/medicine tests: ordered. Risk Prescription drug management. DIAGNOSTIC RESULTS Procedures/EKG: Physician EKG interpretation can be found in [facility] if done RADIOLOGY (Per Emergency Physician): Interpretation per the Radiologist below, if available at the time of this note: CTA chest angiogram w and/or wo IV contrast Final Result 1. No PE identified. PE cannot be evaluated beyond the pulmonary artery proximal segmental level due to study limitations above. 2. No acute pulmonary abnormalities. 3. Cardiomegaly and three-vessel coronary artery calcification. Report Dictated on Electronically Signed By: Frankie Patel MD Electronically Signed Date/Time: 02/21/2024 1:56 PM EDT Vascular US lower extremity venous duplex bilateral Final Result XR chest 1 view Final Result Limited study with no obvious acute findings. Report Dictated on Electronically Signed By: Frankie Patel MD Electronically Signed Date/Time: 02/21/2024 12:[address] head wo IV contrast Final Result 1. No acute intracranial abnormalities. 2. Mucosal thickening in the paranasal sinuses and fluid in the right sphenoid sinus. Please correlate for sinusitis. Report Dictated on Electronically Signed By: Frankie Patel MD (more content not included)... Normal [facility] ED Provider Note Patient seen and dispositioned by day physician but nurses advised the patient seems more delirious now when she was lucid throughout her stay. I went and rechecked her and she does seem delirious, knows she is in a hospital, could not identify the year, slightly tachycardic and agitated but not hypotensive or febrile. No facial asymmetry, moving all extremities, no meningismus, I noticed that urinalysis was not done earlier so nurses are sending that but I discussed the case with the hospitalist who agrees to admit the patient for acute delirium to the medical service for further management and treatment. Janie Finch MD 02/21/24 1811 Normal [facility] Fibrin D-dimer FEU (PPP) [Ma ss/Vol]on 02-21-2024 Interpretation and review of laboratory results Abnormal [facility] LACTIC ACID WITH REFLEXon Lactate [Moles/Vol] 2.0 mmol/L Normal 0.7-2.0 [facility] Comment on above: Performed By: #### L [id number], [id number] #### Parts Sales Associate: STEVIE ELMORE ([id number]) [facility] ([facility]) [address] [place] [address] Laboratory - Chemistry and C hemistry - challengeon 02-21-2024 Glucose [Mass/Vol] 138 mg/dL High 70 - 100 mg/dL [facility] Troponin I.cardiac [Mass/Vol] 0.052 ng/mL High NINF - 0.034 ng/mL [facility] Glucose [Mass/Vol] 141 mg/dL High 70 - 100 mg/dL [facility] Troponin I.cardiac [Mass/Vol] 0.049 ng/mL High NINF - 0.034 ng/mL [facility] TSH Qn 2.113 m[IU]/L [facility] h Troponin I.cardiac [Mass/Vol] 0.047 ng/mL High NINF - 0.034 ng/mL [facility] Base excess Calc (BldV) [Moles/Vol] 4.7 mmol/L High -3 - 3 mmol/L [facility] CO2 (BldV) [Partial pressure] 59.7 mm[Hg] High [facility] HCO3 (Bld) [Moles/Vol] 33.9 mmol/L High 23.0 - 27.0 mmol/L [facility] Oxygen (BldV) [Partial pressure] 34.8 mm[Hg] mm Hg [facility] pH (BldV) 7.363 [pH] 7.330 - 7.430 pH [facility] Magnesium [Mass/Vol] 1.9 mg/dL 1.6 - 2 .3 mg/dL [facility] Lactate [Moles/Vol] 2.0 mmol/L 0.7 - 2. 0 mmol/L [facility] Glucose [Mass/Vol] 150 mg/dL [facility] Glucose [Mass/Vol] 150 mg/dL High 70 - 100 mg/dL [facility] Laboratory - Coagulationon 0 02-21-2024 Fibrin D-dimer FEU (PPP) [Mass/Vol] 0.91 mg/L High NINF - 0.50 mg/L [facility] PT Coag (Bld) [Time] 10.5 s 9.0 - 1 2.0 s [facility] Laboratory - Microbiology an d Antimicrobial susceptibilityon 02-21-2024 FLUAV RNA IGGY+probe Ql (Resp) Not detected Not Detected [facility] FLUBV RNA IGGY+probe Ql (Resp) Not detected Not Detected [facility] RSV RNA IGGY+probe Ql (Resp) Not detected Not Detected [facility] SARS-CoV-2 (COVID-19) RNA IGGY+probe Ql (Resp) Not detected Not Detected [facility] MAGNESIUMon 02-21-2024 Magnesium [Mass/Vol] 1.9 mg/dL Normal 1.6-2.3 [facility] Comment on above: Performed By: #### L [id number], [id number] #### Parts Sales Associate: STEVIE ELMORE ([id number]) [facility] ([facility] [address] [place] [address] Magnesium [Mass/Vol]on 02-20 Interpretation and review of laboratory results Normal [facility] NT PRO BNPon 02-21-2024 Natriuretic peptide B (Bld) [Mass/Vol] 1320 pg/mL High <20-300 [facility] Comment on above: Performed By: #### L [id number], [id number] #### Parts Sales Associate: STEVIE ELMORE ([id number]) [facility] [address] Natriuretic peptide B [Mass/ Vol]on 02-21-2024 Natriuretic peptide B (Bld) [Mass/Vol] 1320 pg/mL High <20 - 300 [facility] No Panel Informationon 02-20 Interpretation and review of laboratory results Abnormal [facility] Interpretation and review of laboratory results Abnormal [facility] CV CPACS Interpretation and review of laboratory results Abnormal [facility] Interpretation and review of laboratory results Abnormal [facility] Interpretation and review of laboratory results Normal [facility] Interpretation and review of laboratory results Normal [facility] Interpretation and review of laboratory results Abnormal [facility] Radiology Study observation (narrative) [facility] Radiology Study observation (narrative) [facility] Radiology Study observation (narrative) [facility] Radiology Study observation (narrative) [facility] Radiology Study observation (narrative) [facility] PROTHROMBIN TIMEon INR Coag (PPP) [Relative time] 1.0 {INR} Normal 0.9-1.1 [facility] Comment on above: Result Comment: Ino mmended Anticoagulant Therapy: SEE BELOW ----- INR of 2.0 - 3.0 : - Prophylaxis of Venous Thrombosis (high-risk surgery) - Treatment of Venous Thrombosis - Treatment of Pulmonary Embolism (Includes tissue heart valves, Acute Myocardial Infarction to prevent systemic embolism, Valvular Heart Disease, and Atrial Fibrillation) ----- INR of 2.5 - 3.5 : - Mechanical Prosthetic Valves (high risk) - If oral anticoagulant therapy is used to prevent Myocardial Infarction Performed By: #### L [id number], [id number] ####Parts Sales Associate: STEVIE ELMORE ([id number])[facility])[address] PT Coag (PPP) [Time] 10.5 s Normal 9.0-12.0 [facility] Comment on above: Performed By: #### L [id number], [id number] ####Parts Sales Associate: STEVIE [id number])[facility] ([facility])[address] PT Coag (Bld) [Time]on 02-20 INR Coag (PPP) [Relative time] 1.0 {INR} 0.9 - 1.1 [facility] Interpretation and review of laboratory results Normal [facility] SARS-COV-2, FLU A/B, AND RSV COMBOon 02-21-2024 SARS-CoV-2 (COVID-19) RNA IGGY+probe Ql (Unsp spec) SARS-COV-2 Reference Not Detected Not Detected RESPIRATORY SYNCYTIAL VIRUS Reference Not Detected Not Detected INFLUENZA A (CEPHEID) Reference Not Detected Not Detected INFLUENZA B (CEPHEID) Reference Not Detected Not Detected ORDER COMMENTS: Methodology: real-time, RT-PCR The SARS-CoV-2, Flu A/B, and RSV Combo assay is intended for in vitro diagnostic use under the FDA Emergency Use Authorization (EUA). This test has not been FDA cleared or approved. In compliance with this authorization, please visit www.fda.gov/media/41921 5/download or www.fda.gov/media/68597 6/download to access the applicable information sheets. Normal [facility] Comment on above: Performed By: #### L [id number] ####Parts Sales Associate: STEVIE ELMORE ([phone])[facility] ([facility])[address] [place] [address] THYROID STIMULATING HORMONEo n 02-21-2024 THYROID STIMULATING HORMONE 2.113 uIU/mL Normal 0.465-4.680 [facility] Comment on above: Performed By: #### L [id number], [id number] #### Parts Sales Associate: STEVIE ELMORE ([id number]) [facility] ([facility] [address] [place] [address] TROPONIN Ion 02-21-2024 Troponin I.cardiac [Mass/Vol] 0.052 ng/mL High <0.034 [facility] Comment on above: Result Comment: ORDE R COMMENTS: Patients with high levels of Biotin oral intake (ie >5 mg/day) may have falsely decreased Troponin levels. Performed By: #### L AB103, LAB17 #### Parts Sales Associate: STEVIE MOYAPERICO ([id number]) [facility] ([facility]) [address] Troponin I.cardiac [Mass/Vol] 0.049 ng/mL High <0.034 [facility] Comment on above: Result Comment: PARUL Ponce COMMENTS: Patients with high levels of Biotin oral intake (ie >5 mg/day) may have falsely decreased Troponin levels. Performed By: #### L [id number], [id number] #### Parts Sales Associate: STEVIE MOYAMARCELOPERICO ([id number]) [facility] ([facility]) [address] TROPONIN, WITH SERIAL REFLEX on 02-21-2024 Troponin I.cardiac [Mass/Vol] 0.047 ng/mL High <0.034 [facility] Comment on above: Result Comment: PARUL Ponce COMMENTS: Patients with high levels of Biotin oral intake (ie >5 mg/day) may have falsely decreased Troponin levels. Performed By: #### L AB103, [id number] #### Parts Sales Associate: STEVIE MOYAPERICO ([id number]) [facility] ([facility]) [address] TSH Qnon 02-21-2024 Interpretation and review of laboratory results Normal [facility] Troponin I.cardiac [Mass/Vol ]on 02-21-2024 Interpretation and review of laboratory results Abnormal [facility] Interpretation and review of laboratory results Abnormal [facility] URINE CULTUREon 02-21-2024 Bacteria identified Cx Nom (U) URINE CULTURE Reference Normal urogenital krys present ESCHERICHIA COLI >100,000 CFU/mL Escherichia coli (A) This phenotype is suggestive of an ESBL-producing organism. Treatment with beta-lactam antibiotics other than carbapenems may not be effective. ENTEROCOCCUS FAECALIS >100,000 CFU/mL Enterococcus faecalis (A) Organism: ESCHERICHIA COLI Antibiotic ASHU Interpretation Status Amoxicillin / Clavulanate R F Ampicillin R F Ampicillin / Sulbactam R F Aztreonam >=64 ug/ml R F Cefazolin R F Cefepime R F Ceftriaxone >=64 ug/ml R F Ciprofloxacin >=4 ug/ml R F Gentamicin <=1 ug/ml S F Meropenem <=0.25 ug/ml S F Nitrofurantoin <=16 ug/ml S F Piperacillin / Tazobactam R F Trimethoprim / Sulfamethoxazole >=320 ug/ml R F Organism: ENTEROCOCCUS FAECALIS Antibiotic ASHU Interpretation Status Ampicillin <=2 ug/ml S F Daptomycin 1 ug/ml S F Linezolid 2 ug/ml S F Nitrofurantoin <=16 ug/ml S F Vancomycin 1 ug/ml S F [ S = SUSCEPTIBLE R = RESISTANT I = INTERMEDIATE S-DD = Susceptible-dose dependent NS = Non-susceptible NO = No Interpretation ] Normal [facility] Comment on above: Performed By: #### L [id number] ####Parts Sales Associate: SILVIA FRENCH ([id number])[facility] ([facility])[address] [place] [address] Urinalysis complete panel (U )Ordered By: Reg Adame on 02-21-2024 Bacteria LM.HPF (Urine sed) [#/Area] Moderate Abnormal Negative /HPF [facility] Bilirubin Ql (U) Negative Negative mg/dL [facility] Clarity (U) Turbid Abnormal Clear [facility] Color (U) Yellow Lt. Yellow [facility] Epithelial cells.squamous LM.HPF (Urine sed) [#/Area] 6-10 Abnormal [facility] h Glucose Ql (U) Normal Normal (<70) mg/dL [facility] Hemoglobin Ql (U) 0.2 mg/dL Abnormal Negative [facility] Interpretation and review of laboratory results Abnormal [facility] Ketones (U) [Mass/Vol] Negative Negat rhonda mg/dL [facility] Leukocyte esterase Test strip Ql (U) 500 Abnormal Negative Ha/uL [facility] Mucus LM.HPF (Urine sed) [#/Area] Few Negative /LPF [facility] Nitrite Ql (U) Positive [facility]normal [facility] pH (U) 6.0 [pH] 5.0 - 8.0 pH [facility] Protein (U) [Mass/Vol] 30 mg/dL Abnormal Negative [facility] RBC LM.HPF (Urine sed) [#/Area] 6-10 Abnormal [facility] Specific gravity (U) [Rel density] 1.046 High 1.005 - 1.030 [facility] Urobilinogen (U) [Mass/Vol] Normal Normal (0-1) mg/dL [facility] WBC LM.HPF (Urine sed) [#/Area] /[HPF] Abnormal [facility] Vital signson 02-21-2024 Oxygen saturation in Venous blood 62.6 % [facility] XR Chest Single viewon 02-20 [facility] RADIOLOGY [facility] Radiology Study observation (narrative) [facility] Whole blood hemoglobin A1c/t otal hemoglobin ratio (mass fraction)Ordered By: Lucy Quick on 12-31-2023 HbA1c (Bld) [Mass fraction] 6.1 % 3.8-5.6 [facility] Comment on above: Normal < 5.7 % Predi abetic 5.7 - 6.4 % Diabetic >or= 6.5 % Please note range changes. Basophil percentageOrdered B y: Lucy Quick on 12-10-2023 Basophil percentage 0-5 SEEN /hpf 0-5 [facility] Bilirubin Test strip Ql (U)O rdered By: Lucy Quick on 12-10-2023 Bilirubin Ql (U) Negative Negative [facility] Culture, urineOrdered By: Jemal Campos on 12-10-2023 Bacteria identified Cx Nom (U) Providencia stuartii [facility] Bacteria identified Cx Nom (U) Escherichia coli [facility] Bacteria identified Cx Nom (U) Proteus mirabilis [facility] Ketones Test strip Ql (U)Ord ered By: Lucy Quick on 12-10-2023 Ketones Ql (U) Negative Negative [facility] Mucus LM Ql (Urine sed)Order ed By: Lucy Quick on 12-10-2023 Mucus Ql (Urine sed) 0 SEEN /hpf [facility] Nitrite Test strip Ql (U)Ord ered By: Lucy Quick on 12-10-2023 Nitrite Ql (U) Negative Negative [facility] No Panel InformationOrdered By: Lucy Quick on 12-10-2023 Urine RBC 0 SEEN /hpf 0-5 [facility] Protein Test strip Ql (U)Ord ered By: Lucy Quick on 12-10-2023 Protein Ql (U) Negative Negative [facility] Squamous epithelial cells de tection in urine sediment by light microscopyOrdered By: Lucy Quick on 12-10-2023 Epithelial cells.squamous LM Ql (Urine sed) 0-5 SEEN /hpf 5-10 [facility] Urine blood detectionOrdered By: Lucy Quick on 12-10-2023 RBC Ql (U) Negative Negative [facility] Urine clarityOrdered By: Josee Quick on 12-10-2023 Clarity (U) Clear Clear [facility] Urine color determinationOrd ered By: Lucy Quick on 12-10-2023 Color (U) Straw Yellow [facility] Urine glucose detectionOrder ed By: Lucy Quick on 12-10-2023 Glucose Ql (U) Normal mg/dl Normal [facility] Urine leukocyte esterase det ection by dipstickOrdered By: Lucy Quick on 12-10-2023 Leukocyte esterase Test strip Ql (U) 25 /ul Negative [facility] Urine pHOrdered By: Lucy mcguire on 12-10-2023 pH (U) 7.0 [pH] 5.0 - 8.0 [facility] Urine sediment bacteria coun t by microscopy (number/high power field)Ordered By: Lucy Quick on 12-10-2023 Bacteria LM.HPF (Urine sed) [#/Area] 1 /[HPF] None Seen [facility] Urine specific gravity measu rementOrdered By: Lucy Quick on 12-10-2023 Specific gravity (U) [Rel density] 1.005 1.002-1.030 [facility] Urine urobilinogen measureme ntOrdered By: Lucy Quick on 12-10-2023 Urobilinogen Ql (U) Normal mg/dl Normal [facility] Whole blood hemoglobin A1c/t otal hemoglobin ratio (mass fraction)Ordered By: Lucy Quick on 10-04-2023 HbA1c (Bld) [Mass fraction] 7.1 % 3.8-5.6 [facility] Comment on above: Normal < 5.7 % Predi abetic 5.7 - 6.4 % Diabetic >or= 6.5 % Please note range changes. Basophil percentageOrdered B y: Lucy Quick on 08-02-2023 Bilirubin [Mass/Vol] 0.10 mg/dL 0.20-1.00 [facility] Comment on above: For patients on eltr ombopag therapy, use of Dimension [place] TBIL is not recommended. Chloride [Moles/Vol] 104 mmol/L 98-107 [facility] Glucose [Mass/Vol] 370 mg/dL 74-106 [facility] Comment on above: Glucose result great er than or equal to 200 mg/dLsuggests DIABETES MELLITUS per A.D.A. criteria. Potassium [Moles/Vol] 4.4 mmol/L 3.5-5.1 [facility] Protein [Mass/Vol] 5.8 g/dL 6.4-8.2 [facility] Sodium [Moles/Vol] 138 mmol/L 136-145 [facility] WBC (Bld) [#/Vol] 5.4 10*3/uL 4.4-11.0 [facility] Blood erythrocytes count (nu mber/volume)Ordered By: Lucy Quick on 08-02-2023 RBC (Bld) [#/Vol] 3.66 10*6/uL 4.2-5.4 [facility] Blood hemoglobin measurement (mass/volume)Ordered By: Lucy Quick on 08-02-2023 Hemoglobin (Bld) [Mass/Vol] 10.3 g/dL 12.0-15.0 [facility] Blood platelet mean volumeOr dered By: Lucy Quick on 08-02-2023 Platelet mean volume (Bld) [Entitic vol] 8.9 fL 6.2-12.0 [facility] Determination of erythrocyte mean corpuscular volume (MCV)Ordered By: Lucy Quick on 08-02-2023 MCV (RBC) [Entitic vol] 99.5 fL 81-99 [facility] Hematocrit Auto (Bld) [Volum e fraction]Ordered By: Lucy Quick on 08-02-2023 Hematocrit (Bld) [Volume fraction] 36.4 % 37-47 [facility] Laboratory - Chemistry and C hemistry - challengeOrdered By: Lucy Quick on 08-02-2023 ALP [Catalytic activity/Vol] 77 U/L 45-117 [facility] ALT [Catalytic activity/Vol] 13 U/L 13-56 [facility] CO2 [Moles/Vol] 28.0 mmol/L 21.0-32.0 [facility] Globulin (S) [Mass/Vol] 3.9 g/dL 2.2-4.2 [facility] Urea nitrogen/Creatinine [Mass ratio] 17.6 mg/mg 10-20 [facility] Laboratory - Hematology and Cell countsOrdered By: Lucy Quick on 08-02-2023 Erythrocyte distribution width (RBC) [Entitic vol] 48.1 fL 35.1-43.9 [facility] Erythrocyte distribution width (RBC) [Ratio] 13.1 % 11.6-14.6 [facility] MCH (RBC) [Entitic mass] 28.1 pg 27.0-32.0 [facility] MCHC Auto (RBC) [Mass/Vol]Or dered By: Lucy Quick on 08-02-2023 MCHC (RBC) [Mass/Vol] 28.3 g/dL 32-36 [facility] No Panel InformationOrdered By: Lucy Quick on 08-02-2023 Estimated GFR (MDRD) Amer 55 mL/min >60 [facility] Comment on above: GFR Calc Estimated GFR (MDRD) Non-Af Amer 46 mL/min >60 [facility] Comment on above: Non- GFR Calc Platelets bldOrdered By: Josee Quick on 08-02-2023 Platelets (Bld) [#/Vol] 257 10*3/uL 150-450 [facility] Serum or plasma albumin catracho urement (mass/volume)Ordered By: Lucy Quick on 08-02-2023 Albumin [Mass/Vol] 1.9 g/dL 3.2-5.0 [facility] Serum or plasma albumin/glob ulin mass ratioOrdered By: Lucy Quick on 08-02-2023 Albumin/Globulin [Mass ratio] 0.5 {ratio} 0.9-2.4 [facility] Serum or plasma calcium catracho urement (mass/volume)Ordered By: Lucy Quick on 08-02-2023 Calcium [Mass/Vol] 8.6 mg/dL 8.5-10.1 [facility] Serum or plasma creatinine m easurement (mass/volume)Ordered By: Lucy Quick on 08-02-2023 Creatinine [Mass/Vol] 1.25 mg/dL 0.55-1.02 [facility] Comment on above: The validity of the calculated GFR & GFRAA in patients over 70 years has not been determined. Clinical correlation is essential. Serum or plasma urea nitroge n measurement (mass/volume)Ordered By: Lucy Quick on 08-02-2023 Urea nitrogen [Mass/Vol] 22 mg/dL 7-18 [facility] Thin prep Papanicolaou smear with manual screeningOrdered By: Lucy Quick on 08-02-2023 Thin prep Papanicolaou smear with manual screening 8 U/L 15-37 [facility] Thin prep Papanicolaou smear with manual screening 6 5-15 [facility] Basophil percentageOrdered B y: Lucy Quick on 07-16-2023 Basophil percentage 0-5 SEEN /hpf 0-5 [facility] Bilirubin Test strip Ql (U)O rdered By: Lucy Quick on 07-16-2023 Bilirubin Ql (U) Negative Negative [facility] Culture, urineOrdered By: Jemal Campos on 07-16-2023 Bacteria identified Cx Nom (U) Mixed Gram Pos & Gram Neg Org [facility] Ketones Test strip Ql (U)Ord ered By: Lucy Quick on 07-16-2023 Ketones Ql (U) Negative Negative [facility] Mucus LM Ql (Urine sed)Order ed By: Lucy Quick on 07-16-2023 Mucus Ql (Urine sed) 0 SEEN /hpf [facility] Nitrite Test strip Ql (U)Ord ered By: Lucy Quick on 07-16-2023 Nitrite Ql (U) Negative Negative [facility] Protein Test strip Ql (U)Ord ered By: Lucy Quick on 07-16-2023 Protein Ql (U) 15 mg/dl Negative [facility] Squamous epithelial cells de tection in urine sediment by light microscopyOrdered By: Lucy Quick on 07-16-2023 Epithelial cells.squamous LM Ql (Urine sed) 5-10 SEEN /hpf 5-10 [facility] Urine blood detectionOrdered By: Lucy Quick on 07-16-2023 RBC Ql (U) 10 /ul Negative [facility] RBC Ql (U) 0-5 SEEN /hpf 0-5 [facility] Urine clarityOrdered By: Josee Quick on 07-16-2023 Clarity (U) Sl. Cloudy Clear [facility] Urine color determinationOrd ered By: Lucy Quick on 07-16-2023 Color (U) Yellow Yellow [facility] Urine glucose detectionOrder ed By: Lucy Quick on 07-16-2023 Glucose Ql (U) Normal mg/dl Normal [facility] Urine leukocyte esterase det ection by dipstickOrdered By: Lucy Quick on 07-16-2023 Leukocyte esterase Test strip Ql (U) 25 /ul Negative [facility] Urine pHOrdered By: Lucy mcguire on 07-16-2023 pH (U) 6.0 [pH] 5.0 - 8.0 [facility] Urine sediment bacteria coun t by microscopy (number/high power field)Ordered By: Lucy Quick on 07-16-2023 Bacteria LM.HPF (Urine sed) [#/Area] 1 /[HPF] None Seen [facility] Urine specific gravity measu rementOrdered By: Lucy Quick on 07-16-2023 Specific gravity (U) [Rel density] 1.015 1.002-1.030 [facility] Urobilinogen Auto test strip Ql (U)Ordered By: Lucy Quick on 07-16-2023 Urobilinogen Ql (U) Normal mg/dl Normal [facility] Basophil percentageOrdered B y: Lucy Quick on 07-03-2023 Bilirubin [Mass/Vol] 0.20 mg/dL 0.20-1.00 [facility] Comment on above: For patients on eltr ombopag therapy, use of Dimension [place] TBIL is not recommended. Chloride [Moles/Vol] 103 mmol/L 98-107 [facility] Glucose [Mass/Vol] 110 mg/dL 74-106 [facility] Comment on above: Fasting Glucose resu lt from 100 to 125 mg/dL suggests IMPAIRED HOMEOSTASIS per A.D.A. criteria. Potassium [Moles/Vol] 3.6 mmol/L 3.5-5.1 [facility] Protein [Mass/Vol] 6.1 g/dL 6.4-8.2 [facility] Sodium [Moles/Vol] 140 mmol/L 136-145 [facility] WBC (Bld) [#/Vol] 6.9 10*3/uL 4.4-11.0 [facility] Blood erythrocytes count (nu mber/volume)Ordered By: Lucy Quick on 07-03-2023 RBC (Bld) [#/Vol] 3.29 10*6/uL 4.2-5.4 [facility] Blood hemoglobin measurement (mass/volume)Ordered By: Lucy Quick on 07-03-2023 Hemoglobin (Bld) [Mass/Vol] 9.6 g/dL 12.0-15.0 [facility] Blood platelet mean volumeOr dered By: Lucy Quick on 07-03-2023 Platelet mean volume (Bld) [Entitic vol] 8.2 fL 6.2-12.0 [facility] Determination of erythrocyte mean corpuscular volume (MCV)Ordered By: Lucy Quick on 07-03-2023 MCV (RBC) [Entitic vol] 94.2 fL 81-99 [facility] Hematocrit Auto (Bld) [Volum e fraction]Ordered By: Lucy Quick on 07-03-2023 Hematocrit (Bld) [Volume fraction] 31.0 % 37-47 [facility] Laboratory - Chemistry and C hemistry - challengeOrdered By: Lucy Quick on 07-03-2023 ALP [Catalytic activity/Vol] 74 U/L 45-117 [facility] ALT [Catalytic activity/Vol] 13 U/L 13-56 [facility] CO2 [Moles/Vol] 31.0 mmol/L 21.0-32.0 [facility] Globulin (S) [Mass/Vol] 3.7 g/dL 2.2-4.2 [facility] Urea nitrogen/Creatinine [Mass ratio] 23.8 mg/mg 10-20 [facility] Laboratory - Hematology and Cell countsOrdered By: Lucy Quick on 07-03-2023 Erythrocyte distribution width (RBC) [Entitic vol] 46.0 fL 35.1-43.9 [facility] Erythrocyte distribution width (RBC) [Ratio] 13.3 % 11.6-14.6 [facility] MCH (RBC) [Entitic mass] 29.2 pg 27.0-32.0 [facility] MCHC Auto (RBC) [Mass/Vol]Or dered By: Lucy Quick on 07-03-2023 MCHC (RBC) [Mass/Vol] 31.0 g/dL 32-36 [facility] No Panel InformationOrdered By: Lucy Quick on 07-03-2023 Estimated GFR (MDRD) Amer 47 mL/min >60 [facility] Comment on above: GFR Calc Estimated GFR (MDRD) Non-Af Amer 39 mL/min >60 [facility] Comment on above: Non- GFR Calc Thyroid Stimulating Hormone (TSH) 4.21 uIU/mL 0.358-3.74 [facility] Platelets bldOrdered By: Josee Quick on 07-03-2023 Platelets (Bld) [#/Vol] 314 10*3/uL 150-450 [facility] Serum or plasma albumin catracho urement (mass/volume)Ordered By: Lucy Quick on 07-03-2023 Albumin [Mass/Vol] 2.4 g/dL 3.2-5.0 [facility] Serum or plasma albumin/glob ulin mass ratioOrdered By: Lucy Quick on 07-03-2023 Albumin/Globulin [Mass ratio] 0.6 {ratio} 0.9-2.4 [facility] Serum or plasma calcium catracho urement (mass/volume)Ordered By: Lucy Quick on 07-03-2023 Calcium [Mass/Vol] 8.6 mg/dL 8.5-10.1 [facility] Serum or plasma creatinine m easurement (mass/volume)Ordered By: Lucy Quick on 07-03-2023 Creatinine [Mass/Vol] 1.43 mg/dL 0.55-1.02 [facility] Comment on above: The validity of the calculated GFR & GFRAA in patients over 70 years has not been determined. Clinical correlation is essential. Serum or plasma urea nitroge n measurement (mass/volume)Ordered By: Lucy Quick on 07-03-2023 Urea nitrogen [Mass/Vol] 34 mg/dL 7-18 [facility] Thin prep Papanicolaou smear with manual screeningOrdered By: Lucy Quick on 07-03-2023 Thin prep Papanicolaou smear with manual screening 10 U/L 15-37 [facility] Thin prep Papanicolaou smear with manual screening 6 5-15 [facility] Whole blood hemoglobin A1c/t otal hemoglobin ratio (mass fraction)Ordered By: Lucy Quick on 07-03-2023 HbA1c (Bld) [Mass fraction] 6.7 % 3.8-5.6 [facility] Comment on above: Normal < 5.7 % Predi abetic 5.7 - 6.4 % Diabetic >or= 6.5 % Please note range changes. ED NOTEon 06-30-2023 ED NOTE HNO ID: [id number] Author: Roseanne Ontiveros RN Service: Emergency Medicine Author Type: Registered Nurse Type: ED Notes Filed: 06/30/2023 12:29 AM Note Text: Transport arrived. Normal [facility] ED NOTE HNO ID: [id number] Author: Roseanne Ontiveros RN Service: Emergency Medicine Author Type: Registered Nurse Type: ED Notes Filed: 06/29/2023 11:33 PM Note Text: Transport called. ETA 0030. Normal [facility] ED PROV NOTEon 06-30-2023 ED PROV NOTE Normal [facility] ALLIED HEALTHon 06-29-2023 ALLIED HEALTH Normal [facility] Bilirubin Test strip Ql (U)O rdered By: Lucy Quick on 06-29-2023 Bilirubin Ql (U) Negative Negative [facility] CBC W Auto Differential pane l (Bld)on 06-29-2023 Basophils (Bld) [#/Vol] 0.05 10*3/uL Normal <0.11 [facility] Comment on above: Order Comment: Speci men Type: BLOOD SPECIMENOrdering Facility: [facility] Address: [address] [place] [phone] Performed By: #### 5 7021-8 ####[facility] LABORATORYCLIA [id number] [place] [address] [place] Basophils/100 WBC (Bld) 0.8 % Normal [facility] Comment on above: Order Comment: Speci men Type: BLOOD SPECIMENOrdering Facility: [facility] Address: [address] [place] [address] Performed By: #### 5 7021-8 ####[facility] LABORATORYCLIA [id number] [address] Differential cell count method Nom (Bld) Auto Normal [facility] Comment on above: Order Comment: Speci men Type: BLOOD SPECIMENOrdering Facility: [facility] Address: [address] [place] [address] Performed By: #### 5 7021-8 ####[facility] LABORATORYCLIA [id number] [address] Eosinophils (Bld) [#/Vol] 0.37 10*3/uL Normal <0.46 [facility] Comment on above: Order Comment: Speci men Type: BLOOD SPECIMENOrdering Facility: [facility] Address: [address] [place] [address] Performed By: #### 5 7021-8 ####[facility] LABORATORYCLIA [id number] [address] Eosinophils/100 WBC (Bld) 6.1 % Normal [facility] Comment on above: Order Comment: Speci men Type: BLOOD SPECIMENOrdering Facility: [facility] Address: [address] [place] [address] Performed By: #### 5 7021-8 ####[facility] LABORATORYCLIA [id number] [address] Erythrocyte distribution width (RBC) [Ratio] 13.4 % Normal 11.5-15.0 [facility] Comment on above: Order Comment: Speci men Type: BLOOD SPECIMENOrdering Facility: [facility] Address: [address] [place] [address] Performed By: #### 5 7021-8 ####[facility] LABORATORYCLIA [id number] [place] [address] [place] Hematocrit (Bld) [Volume fraction] 31.0 % Low 36.0-46.0 [facility] Comment on above: Order Comment: Speci men Type: BLOOD SPECIMENOrdering Facility: [facility] Address: [address] [place] [address] Performed By: #### 5 7021-8 ####[facility] LABORATORYCLIA [id number] [place] [address] [place] Hemoglobin (Bld) [Mass/Vol] 9.8 g/dL Low 11.5-15.5 [facility] Comment on above: Order Comment: Speci men Type: BLOOD SPECIMENOrdering Facility: [facility] Address: [address] [place] [address] Performed By: #### 5 7021-8 ####[facility] LABORATORYCLIA [id number] [place] [address] [place] Immature granulocytes (Bld) [#/Vol] 0.18 10*3/uL High <0.10 [facility] Comment on above: Order Comment: Speci men Type: BLOOD SPECIMENOrdering Facility: [facility] Address: [address] [place] [address] Performed By: #### 5 7021-8 ####[facility] LABORATORYCLIA [id number] [address] [place] Immature granulocytes/100 WBC (Bld) 3.0 % Normal [facility] Comment on above: Order Comment: Speci men Type: BLOOD SPECIMENOrdering Facility: [facility] Address: [address] [place] [address] Performed By: #### 5 7021-8 ####[facility] LABORATORYCLIA [id number] [place] [address] [place] Lymphocytes (Bld) [#/Vol] 1.68 10*3/uL Normal 1.00-4.00 [facility] Comment on above: Order Comment: Speci men Type: BLOOD SPECIMENOrdering Facility: [facility] Address: [address] [place] [address] Performed By: #### 5 7021-8 ####[facility] LABORATORYCLIA [id number] [address] Lymphocytes/100 WBC (Bld) 27.9 % Normal [facility] Comment on above: Order Comment: Speci men Type: BLOOD SPECIMENOrdering Facility: [facility] Address: [address] [place] [address] Performed By: #### 5 7021-8 ####[facility] LABORATORYCLIA [id number] [address] MCH (RBC) [Entitic mass] 28.7 pg Normal 26.0-34.0 [facility] Comment on above: Order Comment: Speci men Type: BLOOD SPECIMENOrdering Facility: [facility] Address: [address] [place] [address] Performed By: #### 5 7021-8 ####[facility] LABORATORYCLIA [id number] [address] MCHC (RBC) [Mass/Vol] 31.6 g/dL Normal 30.5-36.0 [facility] Comment on above: Order Comment: Speci men Type: BLOOD SPECIMENOrdering Facility: [facility] Address: [address] [place] [address] Performed By: #### 5 7021-8 ####[facility] LABORATORYCLIA [id number] [address] MCV (RBC) [Entitic vol] 90.6 fL Normal 80.0-100.0 [facility] Comment on above: Order Comment: Speci men Type: BLOOD SPECIMENOrdering Facility: [facility] Address: [address] [place] [address] Performed By: #### 5 7021-8 ####[facility] LABORATORYCLIA [id number] [address] Monocytes (Bld) [#/Vol] 0.68 10*3/uL Normal <0.87 [facility] Comment on above: Order Comment: Speci men Type: BLOOD SPECIMENOrdering Facility: [facility] Address: [address] [place] [address] Performed By: #### 5 7021-8 ####[facility] LABORATORYCLIA [id number] [address] Monocytes/100 WBC (Bld) 11.3 % Normal A [facility] Comment on above: Order Comment: Speci men Type: BLOOD SPECIMENOrdering Facility: [facility] Address: [address] [place] [address] Performed By: #### 5 7021-8 ####[facility] LABORATORYCLIA [id number] [address] OF [place] Neutrophils (Bld) [#/Vol] 3.07 10*3/uL Normal 1.45-7.50 [facility] Comment on above: Order Comment: Speci men Type: BLOOD SPECIMENOrdering Facility: [facility] Address: [address] [place] [address] Performed By: #### 5 7021-8 ####[facility] LABORATORYCLIA [id number] [address] Neutrophils/100 WBC (Bld) 50.9 % Normal [facility] Comment on above: Order Comment: Speci men Type: BLOOD SPECIMENOrdering Facility: [facility] Address: [address] [place] [address] Performed By: #### 5 7021-8 ####[facility] LABORATORYCLIA [id number] [address] [place] Nucleated RBC (Bld) [#/Vol] 10*3/uL Normal <0.01 [facility] Comment on above: Order Comment: Speci men Type: BLOOD SPECIMENOrdering Facility: [facility] Address: [address] [place] [address] Performed By: #### 5 7021-8 ####[facility] LABORATORYCLIA [id number] [address] OF [place] Nucleated RBC/100 WBC (Bld) [Ratio] 0.0 /100 WBC Normal [facility] Comment on above: Order Comment: Speci men Type: BLOOD SPECIMENOrdering Facility: [facility] Address: [address] [place] [address] Performed By: #### 5 7021-8 ####[facility] LABORATORYCLIA [id number] [place] [address] [place] Platelet mean volume (Bld) [Entitic vol] 7.9 fL Low 9.0-12.7 [facility] Comment on above: Order Comment: Speci men Type: BLOOD SPECIMENOrdering Facility: [facility] Address: [address] [place] [address] Performed By: #### 5 7021-8 ####[facility] LABORATORYCLIA [id number] [place] [address] [place] Platelets (Bld) [#/Vol] 279 10*3/uL Normal 150-400 [facility] Comment on above: Order Comment: Speci men Type: BLOOD SPECIMENOrdering Facility: [facility] Address: [address] [place] [address] Performed By: #### 5 7021-8 ####[facility] LABORATORYCLIA [id number] [place] [address] [place] RBC (Bld) [#/Vol] 3.42 10*6/uL Low 3.90-5.20 [facility] Comment on above: Order Comment: Speci men Type: BLOOD SPECIMENOrdering Facility: [facility] Address: [address] [place] [address] Performed By: #### 5 7021-8 ####[facility] LABORATORYCLIA [id number] [place] [address] [place] WBC (Bld) [#/Vol] 6.03 10*3/uL Normal 3.70-11.00 [facility] Comment on above: Order Comment: Speci men Type: BLOOD SPECIMENOrdering Facility: [facility] Address: [address] [place] [address] Performed By: #### 5 7021-8 ####[facility] LABORATORYCLIA [id number] [place] [address] [place] [address] BRAIN WO IVCONon 06-29-[address] BRAIN WO IVCON Normal [facility] Comprehensive metabolic 2000 panelon 06-29-2023 Albumin [Mass/Vol] 3.5 g/dL Low 3.9-4.9 [facility] Comment on above: Order Comment: Speci men Type: BLOOD SPECIMENOrdering Facility: [facility] Address: [address] [address] Performed By: #### 2 4323-8 ####[facility] LABORATORYCLIA [id number] [address] OF [facility] ALP [Catalytic activity/Vol] 84 U/L Normal 34-123 [facility] Comment on above: Order Comment: Speci men Type: BLOOD SPECIMENOrdering Facility: [facility] Address: [address] [place] [address] Performed By: #### 2 4323-8 ####[facility] LABORATORYCLIA [id number] [address] STATES OF [facility] ALT With P-5'-P [Catalytic activity/Vol] 10 U/L Normal 7-38 [facility] Comment on above: Order Comment: Speci men Type: BLOOD SPECIMENOrdering Facility: [facility] Address: [address] [place] [address] Performed By: #### 2 4323-8 ####[facility] LABORATORYCLIA [id number] [address] Anion gap [Moles/Vol] 13 mmol/L Normal 9-18 [facility] Comment on above: Order Comment: Speci men Type: BLOOD SPECIMENOrdering Facility: [facility] Address: [address] [place] [address] Performed By: #### 2 4323-8 ####[facility] LABORATORYCLIA [id number] [address] [place] AST With P-5'-P [Catalytic activity/Vol] 12 U/L Low 13-35 [facility] Comment on above: Order Comment: Speci men Type: BLOOD SPECIMENOrdering Facility: [facility] Address: [address] [place] [address] Performed By: #### 2 4323-8 ####[facility] LABORATORYCLIA [id number] [place] [address] [place] Bilirubin [Mass/Vol] 0.3 mg/dL Normal 0.2-1.3 [facility] Comment on above: Order Comment: Speci men Type: BLOOD SPECIMENOrdering Facility: [facility] Address: [address] [place] [address] Performed By: #### 2 4323-8 ####[facility] LABORATORYCLIA [id number] [place] [address] [place] Calcium [Mass/Vol] 9.0 mg/dL Normal 8.5-10.2 [facility] Comment on above: Order Comment: Speci men Type: BLOOD SPECIMENOrdering Facility: [facility] Address: [address] [place] [address] Performed By: #### 2 4323-8 ####[facility] LABORATORYCLIA [id number] [place] [address] [place] Chloride [Moles/Vol] 98 mmol/L Normal 97-105 [facility] Comment on above: Order Comment: Speci men Type: BLOOD SPECIMENOrdering Facility: [facility] Address: [address] [place] [address] Performed By: #### 2 4323-8 ####[facility] LABORATORYCLIA [id number] [place] [address] [place] CO2 [Moles/Vol] 28 mmol/L Normal 22-30 [facility] Comment on above: Order Comment: Speci men Type: BLOOD SPECIMENOrdering Facility: [facility] Address: [address] [place] [address] Performed By: #### 2 4323-8 ####[facility] LABORATORYCLIA [id number] [place] [address] [place] Creatinine [Mass/Vol] 1.30 mg/dL High 0.58-0.96 [facility] Comment on above: Order Comment: Scott seals Type: BLOOD SPECIMENOrdering Facility: [facility] Address: [address] [place] [address] Performed By: #### 2 4323-8 ####[facility] LABORATORYCLIA [id number] [address] Creatinine and Glomerular filtration rate.predicted panel (S/P/Bld) 46 mL/min/1.73m??? Low >=60 [facility] Comment on above: Order Comment: Scott seals Type: BLOOD SPECIMENOrdering Facility: [facility] Address: [address] [place] [address] Result Comment: Petra mated Glomerular Filtration Rate (eGFR) is calculated using the 2020 CKD-EPI creatinine equation. This equation utilizes serum creatinine, sex, and age as parameters. The creatinine assay has traceable calibration to isotope dilution-mass spectrometry. Refer to KDIGO guidelines for clinical interpretation. In patients with unstable renal function, e.g. those with acute kidney injury, the eGFR may not accurately reflect actual GFR. Performed By: #### 2 4323-8 ####[facility] LABORATORYCLIA [id number] [place] [address] [place] Glucose [Mass/Vol] 167 mg/dL High 74-99 [facility] Comment on above: Order Comment: Scott seals Type: BLOOD SPECIMENOrdering Facility: [facility] Address: [address] [place] [address] Result Comment: The [place] [employer] (ADA) provides guidance for cutoff values for fasting glucose and random glucose. The ADA defines fasting as no caloric intake for at least 8 hours. Fasting plasma glucose results between 100 to 125 mg/dL indicate increased risk for diabetes (prediabetes).Fasting plasma glucose results greater than or equal to 126 mg/dL meet the criteria for diagnosis of diabetes. In the absence of unequivocal hyperglycemia, results should be confirmed by repeat testing. In a patient with classic symptoms of hyperglycemia or hyperglycemic crisis, random plasma glucose results greater than or equal to 200 mg/dL meet the criteria for diagnosis of diabetes.Reference: Standards of Medical Care in Diabetes 2016, [place] [employer]. Diabetes Care. 2016.39(Suppl 1). Performed By: #### 2 4323-8 ####[facility] LABORATORYCLIA [id number] [address] [place] [facility] Potassium [Moles/Vol] 3.9 mmol/L Normal 3.7-5.1 [facility] Comment on above: Order Comment: Speci men Type: BLOOD SPECIMENOrdering Facility: [facility] Address: [address] [place] [address] Performed By: #### 2 4323-8 ####[facility] LABORATORYCLIA [id number] [address] STATES OF [facility] Protein [Mass/Vol] 6.3 g/dL Normal 6.3-8.0 [facility] Comment on above: Order Comment: Speci men Type: BLOOD SPECIMENOrdering Facility: [facility] Address: [address] [place] [address] Performed By: #### 2 4323-8 ####[facility] LABORATORYCLIA [id number] [address] Sodium [Moles/Vol] 139 mmol/L Normal 136-144 [facility] Comment on above: Order Comment: Speci men Type: BLOOD SPECIMENOrdering Facility: [facility] Address: [address] [place] [address] Performed By: #### 2 4323-8 ####[facility] LABORATORYCLIA [id number] [address] [place] Urea nitrogen [Mass/Vol] 34 mg/dL High 7-21 [facility] Comment on above: Order Comment: Speci men Type: BLOOD SPECIMENOrdering Facility: [facility] Address: [address] [place] [address] Performed By: #### 2 4323-8 ####[facility] LABORATORYCLIA [id number] [address] [place] Culture, urineOrdered By: Jemal Campos on 06-29-2023 Bacteria identified Cx Nom (U) Aerococcus viridans. [facility] Bacteria identified Cx Nom (U) Pseudomonas stutzeri [facility] Bacteria identified Cx Nom (U) Aerococcus urinae [facility] ECG COMPLETEon 06-29-2023 ECG COMPLETE Normal [facility] ED PROV NOTEon 06-29-2023 ED PROV NOTE Normal [facility] Ethanol SerPl-mCncon 023 Ethanol [Mass/Vol] mg/dL Normal <11 [facility] Comment on above: Order Comment: Speci men Type: BLOOD SPECIMENOrdering Facility: [facility] Address: [address] [place] [phone] Performed By: #### 5 643-2 ####[facility] LABORATORYCLIA [id number] [place] [address] [place] Ketones Test strip Ql (U)Ord ered By: Lucy Quick on 06-29-2023 Ketones Ql (U) Negative Negative [facility] Nitrite Test strip Ql (U)Ord ered By: Lucy Quick on 06-29-2023 Nitrite Ql (U) Negative Negative [facility] Protein Test strip Ql (U)Ord ered By: Lucy Quick on 06-29-2023 Protein Ql (U) Negative Negative [facility] Review by pathologistOrdered By: Lucy Quick on 06-29-2023 Pathologist review Anselmo (Unsp spec) [Interp] See comment [facility] Comment on above: ABUNDANT DEGENERATIN G MACROPHAGES AND EPITHELIOD CELLS PRESENT.CLINICAL CORRELATION NECESSARY.DR.ARUN INMAN 06/29/23 THIS REPORT REFERENCES SPECIMEN 0901;U23 Previous reported result: Edited by: DENNY on 06/29/23:1406 AMENDED REPORT 06/29/23 1406 PATH REV previously reported as: ABUNDANT DEGENERATING MACROPHAGES AND EPITHELIOD CELLS PRESENT.CLINICAL CORRELATION NECESSARY.DR.ARUN INMAN 06/29/23 SARS-CoV-2 RNA Resp Ql IGGY+p valerio 06-29-2023 SARS-CoV-2 (COVID-19) RNA IGGY+probe Ql (Resp) COVID 19 RESULT: Not detected The method used is RT-PCR or an equivalent NAAT method. Reference Range(the expected result in uninfected individuals): Not detected Normal [facility] Comment on above: Performed By: #### 9 4500-6 ####[employer] SystemsMINNIE [facility] LABORATORYCLIA [id number] [address] TOX SCREEN ROUT URon 023 Amphetamines Confirm (U) [Mass/Vol] Negative Normal Negative [facility] Comment on above: Order Comment: Speci men Type: URINE SPECIMENOrdering Facility: [facility] Address: [address] [place] [address] Result Comment: Cuto ff threshold at 1000 ng/mL. Performed By: #### U TOX2 ####[facility] LABORATORYCLIA [id number] [address] BARBITURATES, URINE Negative Normal Negative [facility] Comment on above: Order Comment: Speci men Type: URINE SPECIMENOrdering Facility: [facility] Address: [address] [place] [address] Result Comment: Cuto ff threshold at 200 ng/mL. Performed By: #### U TOX2 ####[facility] LABORATORYCLIA [id number] [address] OF [place] BENZOD[place], UR Negative Normal Negative [facility] Comment on above: Order Comment: Speci men Type: URINE SPECIMENOrdering Facility: [facility] Address: [address] [place] [address] Result Comment: Cuto ff threshold at 200 ng/mL. Performed By: #### U TOX2 ####[facility]ORATORYCLIA [id number] [address] Cannabinoids Screen Ql (U) Negative Normal Negative [facility] Comment on above: Order Comment: Speci men Type: URINE SPECIMENOrdering Facility: [facility] Address: [address] [address] Result Comment: Cuto ff threshold at 50 ng/mL. Performed By: #### U TOX2 ####[facility] LABORATORYCLIA [id number] [place] [address] [place] Cocaine Ql (U) Negative Normal Negative [facility] Comment on above: Order Comment: Speci men Type: URINE SPECIMENOrdering Facility: [facility] Address: [address] [place] [address] Result Comment: Cuto ff threshold at 300 ng/mL. Performed By: #### U TOX2 ####[facility] LABORATORYCLIA [id number] [address] [place] Ethanol (U) [Mass/Vol] <11 Normal <11 [facility] Comment on above: Order Comment: Speci men Type: URINE SPECIMENOrdering Facility: [facility] Address: [address] [place] [address] Performed By: #### U TOX2 ####[facility]ORATORYCLIA [id number] [address] Opiates Screen Ql (U) Negative Normal Negative [facility] Comment on above: Order Comment: Speci men Type: URINE SPECIMENOrdering Facility: [facility] Address: [address] [place] [address] Result Comment: Cuto ff threshold at 300 ng/mL. Performed By: #### U TOX2 ####[facility]ORATORYCLIA [id number] [address] [place] oxyCODONE cutoff Screen (U) [Mass/Vol] Positive Abnormal Negative [facility] Comment on above: Order Comment: Speci men Type: URINE SPECIMENOrdering Facility: [facility] Address: [address] [address] Result Comment: Cuto ff threshold at 100 ng/mL. Performed By: #### U TOX2 ####[facility] LABORATORYCLIA [id number] [address] Phencyclidine Ql (U) Negative Normal Negative [facility] Comment on above: Order Comment: Speci men Type: URINE SPECIMENOrdering Facility: [facility] Address: [address] [place] [address] Result Comment: Cuto ff threshold at 25 ng/mL. Performed By: #### U TOX2 ####[facility] LABORATORYCLIA [id number] [address] Urinalysis complete pnl Uron 06-29-2023 Urinalysis complete panel (U) Normal [facility] Comment on above: Order Comment: Speci men Type: URINE SPECIMENOrdering Facility: [facility] Address: [address] [place] [address] Performed By: #### 2 [id number] ####[facility] LABORATORYCLIA [id number] [address] Urine blood detectionOrdered By: Lucy Quick on 06-29-2023 RBC Ql (U) Negative Negative [facility] Urine clarityOrdered By: Josee Quick on 06-29-2023 Clarity (U) Clear Clear [facility] Urine color determinationOrd ered By: Lucy Quick on 06-29-2023 Color (U) Yellow Yellow [facility] Urine glucose detectionOrder ed By: Lucy Quick on 06-29-2023 Glucose Ql (U) Normal mg/dl Normal [facility] Urine leukocyte esterase det ection by dipstickOrdered By: Lucy Quick on 06-29-2023 Leukocyte esterase Test strip Ql (U) Negative Negative [facility] Urine pHOrdered By: Lucy mcguire on 06-29-2023 pH (U) 6.0 [pH] 5.0 - 8.0 [facility] Urine specific gravity measu rementOrdered By: Lucy Quick on 06-29-2023 Specific gravity (U) [Rel density] 1.015 1.002-1.030 [facility] Urobilinogen Auto test strip Ql (U)Ordered By: Lucy Quick on 06-29-2023 Urobilinogen Ql (U) Normal mg/dl Normal [facility] XR CHEST 2V FRONTAL/LATon XR CHEST 2V FRONTAL/LAT Normal [facility] CNPNon 05-24-2023 CNPN Normal [facility] Basophil percentageOrdered B y: Lucy Quick on 05-21-2023 Basophil percentage 0-5 SEEN /hpf 0-5 [facility] Bilirubin Test strip Ql (U)O rdered By: Lucy Quick on 05-21-2023 Bilirubin Ql (U) Negative Negative [facility] Culture, urineOrdered By: Jemal Campos on 05-21-2023 Bacteria identified Cx Nom (U) Aerococcus viridans. [facility] Ketones Test strip Ql (U)Ord ered By: Lucy Quick on 05-21-2023 Ketones Ql (U) 15 mg/dl Negative [facility] Mucus LM Ql (Urine sed)Order ed By: Lucy Quick on 05-21-2023 Mucus Ql (Urine sed) 0 SEEN /hpf [facility] Nitrite Test strip Ql (U)Ord ered By: Lucy Quick on 05-21-2023 Nitrite Ql (U) Negative Negative [facility] Protein Test strip Ql (U)Ord ered By: Lucy Quick on 05-21-2023 Protein Ql (U) 15 mg/dl Negative [facility] Squamous epithelial cells de tection in urine sediment by light microscopyOrdered By: Lucy Quick on 05-21-2023 Epithelial cells.squamous LM Ql (Urine sed) 0 SEEN /hpf 5-10 [facility] Urine blood detectionOrdered By: Lucy Quick on 05-21-2023 RBC Ql (U) Negative Negative [facility] RBC Ql (U) 0 SEEN /hpf 0-5 [facility] Urine clarityOrdered By: Josee Quick on 05-21-2023 Clarity (U) Clear Clear [facility] Urine color determinationOrd ered By: Lucy Quick on 05-21-2023 Color (U) Yellow Yellow [facility] Urine glucose detectionOrder ed By: Lucy Quick on 05-21-2023 Glucose Ql (U) Normal mg/dl Normal [facility] Urine leukocyte esterase det ection by dipstickOrdered By: Lucy Qiuck on 05-21-2023 Leukocyte esterase Test strip Ql (U) 25 /ul Negative [facility] Urine pHOrdered By: Lucy mcguire on 05-21-2023 pH (U) 6.0 [pH] 5.0 - 8.0 [facility] Urine sediment bacteria coun t by microscopy (number/high power field)Ordered By: Lucy Quick on 05-21-2023 Bacteria LM.HPF (Urine sed) [#/Area] 0 /[HPF] None Seen [facility] Urine specific gravity measu rementOrdered By: Lucy Quick on 05-21-2023 Specific gravity (U) [Rel density] 1.015 1.002-1.030 [facility] Urobilinogen Auto test strip Ql (U)Ordered By: Lucy Quick on 05-21-2023 Urobilinogen Ql (U) Normal mg/dl Normal [facility] Basophil percentageOrdered B y: Lucy Quick on 04-04-2023 Chloride [Moles/Vol] 102 mmol/L 98-107 [facility] Glucose [Mass/Vol] 237 mg/dL 74-106 [facility] Comment on above: Glucose result great er than or equal to 200 mg/dLsuggests DIABETES MELLITUS per A.D.A. criteria. Potassium [Moles/Vol] 4.7 mmol/L 3.5-5.1 [facility] Sodium [Moles/Vol] 137 mmol/L 136-145 [facility] WBC (Bld) [#/Vol] 8.4 10*3/uL 4.4-11.0 [facility] Blood erythrocytes count (nu mber/volume)Ordered By: Lucy Quick on 04-04-2023 RBC (Bld) [#/Vol] 3.41 10*6/uL 4.2-5.4 [facility] Blood hemoglobin measurement (mass/volume)Ordered By: Lucy Quick on 04-04-2023 Hemoglobin (Bld) [Mass/Vol] 11.5 g/dL 12.0-15.0 [facility] Blood platelet mean volumeOr dered By: Lucy Quick on 04-04-2023 Platelet mean volume (Bld) [Entitic vol] 9.7 fL 6.2-12.0 [facility] Determination of erythrocyte mean corpuscular volume (MCV)Ordered By: Lucy Quick on 04-04-2023 MCV (RBC) [Entitic vol] 96.5 fL 81-99 [facility] Hematocrit Auto (Bld) [Volum e fraction]Ordered By: Lucy Quick on 04-04-2023 Hematocrit (Bld) [Volume fraction] 32.9 % 37-47 [facility] Laboratory - Chemistry and C hemistry - challengeOrdered By: Lucy Quick on 04-04-2023 CO2 [Moles/Vol] 27.0 mmol/L 21.0-32.0 [facility] Urea nitrogen/Creatinine [Mass ratio] 29.4 mg/mg 10-20 [facility] Laboratory - Hematology and Cell countsOrdered By: Lucy Quick on 04-04-2023 Erythrocyte distribution width (RBC) [Entitic vol] 47.2 fL 35.1-43.9 [facility] Erythrocyte distribution width (RBC) [Ratio] 15.4 % 11.6-14.6 [facility] MCH (RBC) [Entitic mass] 33.7 pg 27.0-32.0 [facility] MCHC Auto (RBC) [Mass/Vol]Or dered By: Lucy Quick on 04-04-2023 MCHC (RBC) [Mass/Vol] 35.0 g/dL 32-36 [facility] No Panel InformationOrdered By: Lucy Quick on 04-04-2023 Estimated GFR (MDRD) Amer 58 mL/min >60 [facility] Comment on above: GFR Calc Estimated GFR (MDRD) Non-Af Amer 48 mL/min >60 [facility] Comment on above: Non- GFR Calc Platelets bldOrdered By: Josee Quick on 04-04-2023 Platelets (Bld) [#/Vol] 260 10*3/uL 150-450 [facility] Serum or plasma calcium catracho urement (mass/volume)Ordered By: Lucy Quick on 04-04-2023 Calcium [Mass/Vol] 9.2 mg/dL 8.5-10.1 [facility] Serum or plasma creatinine m easurement (mass/volume)Ordered By: Lucy Quick on 04-04-2023 Creatinine [Mass/Vol] 1.19 mg/dL 0.55-1.02 [facility] Comment on above: The validity of the calculated GFR & GFRAA in patients over 70 years has not been determined. Clinical correlation is essential. Serum or plasma urea nitroge n measurement (mass/volume)Ordered By: Lucy Quick on 04-04-2023 Urea nitrogen [Mass/Vol] 35 mg/dL 7-18 [facility] Thin prep Papanicolaou smear with manual screeningOrdered By: Lucy Quick on 04-04-2023 Thin prep Papanicolaou smear with manual screening 8 5-15 [facility] Basophil percentageOrdered B y: Lucy Quick on 03-30-2023 Cholesterol [Mass/Vol] 136 mg/dL <200 [facility] Comment on above: <200 mg/dL Desirable 200-240 mg/dL Borderline >240 mg/dL High Risk Triglyceride [Mass/Vol] 141 mg/dL <199 [facility] Comment on above: The drugs N-Acetylcy steine and Metamizole may falsely depress this assay.Serum Triglycerides Reference Interval Normal <150 mg/dL Borderline high 150 - 199 mg/dL High 200 - 499 mg/dL Very High > or = 500 mg/dL Serum or plasma cholesterol in HDL measurement (mass/volume)Ordered By: Lucy Quick on 03-30-2023 Cholesterol in HDL [Mass/Vol] 41 mg/dL >40 [facility] Comment on above: The drugs N-Acetylcy steine and Metamizole may falsely depress this assay. Reference Range HDL <40 mg/dL Low HDL Cholesterol HDL >or= 60 mg/dL High HDL Cholesterol Serum or plasma cholesterol in VLDL measurement (mass/volume)Ordered By: Lucy Quick on 03-30-2023 Cholesterol in VLDL [Mass/Vol] 28 mg/dL 5-40 [facility] Serum or plasma low density lipoprotein (LDL) cholesterol measurement (mass/volume)Ordered By: Lucy Quick on 03-30-2023 Cholesterol in LDL [Mass/Vol] 67 mg/dL 0-130 [facility] Whole blood hemoglobin A1c/t otal hemoglobin ratio (mass fraction)Ordered By: Lucy Quick on 03-30-2023 HbA1c (Bld) [Mass fraction] 7.3 % 3.8-5.6 [facility] Comment on above: Normal < 5.7 % Predi abetic 5.7 - 6.4 % Diabetic >or= 6.5 % Please note range changes. Basophil percentageOrdered B y: Lucy Quick on 03-20-2023 Chloride [Moles/Vol] 101 mmol/L 98-107 [facility] Glucose [Mass/Vol] 96 mg/dL 74-106 [facility] Potassium [Moles/Vol] 3.9 mmol/L 3.5-5.1 [facility] Sodium [Moles/Vol] 139 mmol/L 136-145 [facility] WBC (Bld) [#/Vol] 7.0 10*3/uL 4.4-11.0 [facility] Blood erythrocytes count (nu mber/volume)Ordered By: Lucy Quick on 03-20-2023 RBC (Bld) [#/Vol] 3.25 10*6/uL 4.2-5.4 [facility] Blood hemoglobin measurement (mass/volume)Ordered By: Lucy Quick on 03-20-2023 Hemoglobin (Bld) [Mass/Vol] 9.1 g/dL 12.0-15.0 [facility] Blood platelet mean volumeOr dered By: Lucy Quick on 03-20-2023 Platelet mean volume (Bld) [Entitic vol] 8.2 fL 6.2-12.0 [facility] Determination of erythrocyte mean corpuscular volume (MCV)Ordered By: Lucy Quick on 03-20-2023 MCV (RBC) [Entitic vol] 92.3 fL 81-99 [facility] Hematocrit Auto (Bld) [Volum e fraction]Ordered By: Lucy Quick on 03-20-2023 Hematocrit (Bld) [Volume fraction] 30.0 % 37-47 [facility] Laboratory - Chemistry and C hemistry - challengeOrdered By: Lucy Quick on 03-20-2023 CO2 [Moles/Vol] 33.0 mmol/L 21.0-32.0 [facility] Urea nitrogen/Creatinine [Mass ratio] 19.2 mg/mg 10-20 [facility] Laboratory - Hematology and Cell countsOrdered By: Lucy Quick on 03-20-2023 Erythrocyte distribution width (RBC) [Entitic vol] 48.1 fL 35.1-43.9 [facility] Erythrocyte distribution width (RBC) [Ratio] 14.2 % 11.6-14.6 [facility] MCH (RBC) [Entitic mass] 28.0 pg 27.0-32.0 [facility] MCHC Auto (RBC) [Mass/Vol]Or dered By: Lucy Quick on 03-20-2023 MCHC (RBC) [Mass/Vol] 30.3 g/dL 32- [facility] No Panel InformationOrdered By: Lucy Quick on 03-20-2023 Estimated GFR (MDRD) Amer 44 mL/min >60 [facility] Comment on above: GFR Calc Estimated GFR (MDRD) Non-Af Amer 37 mL/min >60 [facility] Comment on above: Non- GFR Calc Platelets bldOrdered By: Josee Quick on 03-20-2023 Platelets (Bld) [#/Vol] 267 10*3/uL 150-450 [facility] Serum or plasma calcium catracho urement (mass/volume)Ordered By: Lucy Quick on 03-20-2023 Calcium [Mass/Vol] 8.9 mg/dL 8.5-10.1 [facility] Serum or plasma creatinine m easurement (mass/volume)Ordered By: Lucy Quick on 03-20-2023 Creatinine [Mass/Vol] 1.51 mg/dL 0.55-1.02 [facility] Comment on above: The validity of the calculated GFR & GFRAA in patients over 70 years has not been determined. Clinical correlation is essential. Serum or plasma urea nitroge n measurement (mass/volume)Ordered By: Lucy Quick on 03-20-2023 Urea nitrogen [Mass/Vol] 29 mg/dL 7-18 [facility] Thin prep Papanicolaou smear with manual screeningOrdered By: Lucy Quick on 03-20-2023 Thin prep Papanicolaou smear with manual screening 5 5-15 [facility] Basophil percentageOrdered B y: Lucy Quick on 03-13-2023 Chloride [Moles/Vol] 103 mmol/L 98-107 [facility] Glucose [Mass/Vol] 153 mg/dL 74-106 [facility] Comment on above: Fasting Glucose resu lt greater than or equal to 126 mg/dL suggests DIABETES MELLITUS per A.D.A. criteria. Potassium [Moles/Vol] 4.1 mmol/L 3.5-5.1 [facility] Sodium [Moles/Vol] 141 mmol/L 136-145 [facility] WBC (Bld) [#/Vol] 7.8 10*3/uL 4.4-11.0 [facility] Blood erythrocytes count (nu mber/volume)Ordered By: Lucy Quick on 03-13-2023 RBC (Bld) [#/Vol] 3.34 10*6/uL 4.2-5.4 [facility] Blood hemoglobin measurement (mass/volume)Ordered By: Lucy Quick on 03-13-2023 Hemoglobin (Bld) [Mass/Vol] 9.2 g/dL 12.0-15.0 [facility] Blood platelet mean volumeOr dered By: Lucy Quick on 03-13-2023 Platelet mean volume (Bld) [Entitic vol] 8.7 fL 6.2-12.0 [facility] Determination of erythrocyte mean corpuscular volume (MCV)Ordered By: Lucy Quick on 03-13-2023 MCV (RBC) [Entitic vol] 94.0 fL 81-99 [facility] Hematocrit Auto (Bld) [Volum e fraction]Ordered By: Lucy Quick on 03-13-2023 Hematocrit (Bld) [Volume fraction] 31.4 % 37-47 [facility] Laboratory - Chemistry and C hemistry - challengeOrdered By: Lucy Quick on 03-13-2023 CO2 [Moles/Vol] 31.0 mmol/L 21.0-32.0 [facility] Urea nitrogen/Creatinine [Mass ratio] 20.1 mg/mg 10-20 [facility] Laboratory - Hematology and Cell countsOrdered By: Lucy Quick on 03-13-2023 Erythrocyte distribution width (RBC) [Entitic vol] 47.4 fL 35.1-43.9 [facility] Erythrocyte distribution width (RBC) [Ratio] 13.8 % 11.6-14.6 [facility] MCH (RBC) [Entitic mass] 27.5 pg 27.0-32.0 [facility] MCHC Auto (RBC) [Mass/Vol]Or dered By: Lucy Quick on 03-13-2023 MCHC (RBC) [Mass/Vol] 29.3 g/dL 32-36 [facility] No Panel InformationOrdered By: Lucy Quick on 03-13-2023 Estimated GFR (MDRD) Amer 45 mL/min >60 [facility] Comment on above: GFR Calc Estimated GFR (MDRD) Non-Af Amer 37 mL/min >60 [facility] Comment on above: Non- GFR Calc Platelets bldOrdered By: Josee Quick on 03-13-2023 Platelets (Bld) [#/Vol] 265 10*3/uL 150-450 [facility] Serum or plasma calcium catracho urement (mass/volume)Ordered By: Lucy Quick on 03-13-2023 Calcium [Mass/Vol] 9.1 mg/dL 8.5-10.1 [facility] Serum or plasma creatinine m easurement (mass/volume)Ordered By: Lucy Quick on 03-13-2023 Creatinine [Mass/Vol] 1.49 mg/dL 0.55-1.02 [facility] Comment on above: The validity of the calculated GFR & GFRAA in patients over 70 years has not been determined. Clinical correlation is essential. Serum or plasma urea nitroge n measurement (mass/volume)Ordered By: Lucy Quick on 03-13-2023 Urea nitrogen [Mass/Vol] 30 mg/dL 7-18 [facility] Thin prep Papanicolaou smear with manual screeningOrdered By: Lucy Quick on 03-13-2023 Thin prep Papanicolaou smear with manual screening 7 5-15 [facility] CNPNon 03-09-2023 CNPN Normal [facility] Basophil percentageOrdered B y: Lucy Quick on 02-27-2023 Cholesterol [Mass/Vol] 173 mg/dL <200 [facility] Comment on above: <200 mg/dL Desirable 200-240 mg/dL Borderline >240 mg/dL High Risk Triglyceride [Mass/Vol] 152 mg/dL <199 [facility] Comment on above: The drugs N-Acetylcy steine and Metamizole may falsely depress this assay.Serum Triglycerides Reference Interval Normal <150 mg/dL Borderline high 150 - 199 mg/dL High 200 - 499 mg/dL Very High > or = 500 mg/dL Gentamicin, troughOrdered By : Lucy Quick on 02-27-2023 Gentamicin trough [Mass/Vol] 4.1 ug/mL <2.0 [facility] Comment on above: Critical Result(s) C alled at: 07:53:13 02/27/2023 by: Batsheva Dao to Bette. Results read back by same.Gentamicin minimal values in excess of 2.0 ug/mL for longer than 10 days are potentially toxic. Peak Gentamicin therapeutic range: 4.0 - 8.0 ug/mL Laboratory - Chemistry and C hemistry - challengeOrdered By: Lucy Quick on 02-27-2023 Cobalamin (Vitamin B12) [Mass/Vol] 444 pg/mL 211-911 [facility] No Panel InformationOrdered By: Lucy Quick on 02-27-2023 Thyroid Stimulating Hormone (TSH) 1.60 uIU/mL 0.358-3.74 [facility] Vitamin D 25-Hydroxy 29.2 ng/mL [facility] Comment on above: Vitamin D 25(OH) Sta tus Range Deficiency <20 ng/mL (50nmol/L) Insufficiency 20 - 30 ng/mL (50 - 75 nmol/L) Sufficiency 30 - 100 ng/mL (75 - 250 nmol/L) Toxicity >100 ng/mL (>250 nmol/L) Serum or plasma cholesterol in HDL measurement (mass/volume)Ordered By: Lucy Quick on 02-27-2023 Cholesterol in HDL [Mass/Vol] 56 mg/dL >40 [facility] Comment on above: The drugs N-Acetylcy steine and Metamizole may falsely depress this assay. Reference Range HDL <40 mg/dL Low HDL Cholesterol HDL >or= 60 mg/dL High HDL Cholesterol Serum or plasma cholesterol in VLDL measurement (mass/volume)Ordered By: Lucy Quick on 02-27-2023 Cholesterol in VLDL [Mass/Vol] 30 mg/dL 5-40 [facility] Serum or plasma folate measu rement (mass/volume)Ordered By: Lucy Quick on 02-27-2023 Folate [Mass/Vol] 10.40 ng/mL 3.1-55.4 [facility] Serum or plasma low density lipoprotein (LDL) cholesterol measurement (mass/volume)Ordered By: Lucy Quick on 02-27-2023 Cholesterol in LDL [Mass/Vol] 87 mg/dL 0-130 [facility] Basophil percentageOrdered B y: Lucy Quick on 02-26-2023 Chloride [Moles/Vol] 106 mmol/L 98-107 [facility] Glucose [Mass/Vol] 216 mg/dL 74-106 [facility] Comment on above: Glucose result great er than or equal to 200 mg/dLsuggests DIABETES MELLITUS per A.D.A. criteria. Potassium [Moles/Vol] 4.1 mmol/L 3.5-5.1 [facility] Sodium [Moles/Vol] 138 mmol/L 136-145 [facility] WBC (Bld) [#/Vol] 8.3 10*3/uL 4.4-11.0 [facility] Blood erythrocytes count (nu mber/volume)Ordered By: Lucy Quick on 02-26-2023 RBC (Bld) [#/Vol] 3.42 10*6/uL 4.2-5.4 [facility] Blood hemoglobin measurement (mass/volume)Ordered By: Lucy Quick on 02-26-2023 Hemoglobin (Bld) [Mass/Vol] 10.1 g/dL 12.0-15.0 [facility] Blood platelet mean volumeOr dered By: Lucy Quick on 02-26-2023 Platelet mean volume (Bld) [Entitic vol] 9.8 fL 6.2-12.0 [facility] Determination of erythrocyte mean corpuscular volume (MCV)Ordered By: Lucy Quick on 02-26-2023 MCV (RBC) [Entitic vol] 95.9 fL 81-99 [facility] Hematocrit Auto (Bld) [Volum e fraction]Ordered By: Lucy Quick on 02-26-2023 Hematocrit (Bld) [Volume fraction] 32.8 % 37-47 [facility] Laboratory - Chemistry and C hemistry - challengeOrdered By: Lucy Quick on 02-26-2023 CO2 [Moles/Vol] 25.0 mmol/L 21.0-32.0 [facility] Urea nitrogen/Creatinine [Mass ratio] 26.9 mg/mg 10-20 [facility] Laboratory - Hematology and Cell countsOrdered By: Lucy Quick on 02-26-2023 Erythrocyte distribution width (RBC) [Entitic vol] 49.3 fL 35.1-43.9 [facility] Erythrocyte distribution width (RBC) [Ratio] 14.1 % 11.6-14.6 [facility] MCH (RBC) [Entitic mass] 29.5 pg 27.0-32.0 [facility] MCHC Auto (RBC) [Mass/Vol]Or dered By: Lucy Quick on 02-26-2023 MCHC (RBC) [Mass/Vol] 30.8 g/dL 32-36 [facility] No Panel InformationOrdered By: Lucy Quick on 02-26-2023 Estimated GFR (MDRD) Amer 86 mL/min >60 [facility] Comment on above: GFR Calc Estimated GFR (MDRD) Non-Af Amer 71 mL/min >60 [facility] Comment on above: Non- GFR Calc Platelets bldOrdered By: Josee Quick on 02-26-2023 Platelets (Bld) [#/Vol] 294 10*3/uL 150-450 [facility] Serum or plasma calcium catracho urement (mass/volume)Ordered By: Lucy Quick on 02-26-2023 Calcium [Mass/Vol] 8.4 mg/dL 8.5-10.1 [facility] Serum or plasma creatinine m easurement (mass/volume)Ordered By: Lucy Quick on 02-26-2023 Creatinine [Mass/Vol] 0.86 mg/dL 0.55-1.02 [facility] Comment on above: The validity of the calculated GFR & GFRAA in patients over 70 years has not been determined. Clinical correlation is essential. Serum or plasma peak gentami shannen level (mass/volume)Ordered By: Lucy Quick on 02-26-2023 Gentamicin peak [Mass/Vol] 4.6 ug/mL 4.0-8.0 [facility] Comment on above: GENTAMICIN <4.0 ug/m l IS SUB-THERAPEUTIC > 10.0 ug/mL IS TOXIC Serum or plasma urea nitroge n measurement (mass/volume)Ordered By: Lucy Quick on 02-26-2023 Urea nitrogen [Mass/Vol] 23 mg/dL 7-18 [facility] Thin prep Papanicolaou smear with manual screeningOrdered By: Lucy Quick on 02-26-2023 Thin prep Papanicolaou smear with manual screening 7 - [facility] Culture, urineOrdered By: Jemal Campos on 02-23-2023 Bacteria identified Cx Nom (U) ESBL Klebsiella pneumoniae pne [facility] CNPNon 02-22-2023 CNPN Normal [facility] Basophil percentageOrdered B y: Lucy Quick on 02-20-2023 Basophil percentage 0-5 SEEN /hpf 0-5 [facility] Bilirubin Test strip Ql (U)O rdered By: Lucy Quick on 02-20-2023 Bilirubin Ql (U) Negative Negative [facility] Calcium oxalate crystals det ection in urine sediment by light microscopyOrdered By: Lucy Quick on 02-20-2023 Calcium oxalate crystals LM Ql (Urine sed) 1+ /hpf [facility] Ketones Test strip Ql (U)Ord ered By: Lucy Quick on 02-20-2023 Ketones Ql (U) 50 mg/dl Negative [facility] Mucus LM Ql (Urine sed)Order ed By: Lucy Quick on 02-20-2023 Mucus Ql (Urine sed) 0 SEEN /hpf [facility] Nitrite Test strip Ql (U)Ord ered By: Lucy Quick on 02-20-2023 Nitrite Ql (U) Negative Negative [facility] Protein Test strip Ql (U)Ord ered By: Lucy Quick on 02-20-2023 Protein Ql (U) 15 mg/dl Negative [facility] Squamous epithelial cells de tection in urine sediment by light microscopyOrdered By: Lucy Quick on 02-20-2023 Epithelial cells.squamous LM Ql (Urine sed) 0-5 SEEN /hpf 5-10 [facility] Urine blood detectionOrdered By: Lucy Quick on 02-20-2023 RBC Ql (U) Negative Negative [facility] RBC Ql (U) 0 SEEN /hpf 0-5 [facility] Urine clarityOrdered By: Pet er Dustin on 02-20-2023 Clarity (U) Clear Clear [facility] Urine color determinationOrd ered By: Lucy Quick on 02-20-2023 Color (U) Yellow Yellow [facility] Urine glucose detectionOrder ed By: Lucy Quick on 02-20-2023 Glucose Ql (U) 50 mg/dl Normal [facility] Urine leukocyte esterase det ection by dipstickOrdered By: Lucy Quick on 02-20-2023 Leukocyte esterase Test strip Ql (U) 25 /ul Negative [facility] Urine pHOrdered By: Lucy mcguire on 02-20-2023 pH (U) 5.0 [pH] 5.0 - 8.0 [facility] Urine sediment bacteria coun t by microscopy (number/high power field)Ordered By: Lucy Quick on 02-20-2023 Bacteria LM.HPF (Urine sed) [#/Area] 1 /[HPF] None Seen [facility] Urine specific gravity measu rementOrdered By: Lucy Quick on 02-20-2023 Specific gravity (U) [Rel density] 1.020 1.002-1.030 [facility] Urobilinogen Auto test strip Ql (U)Ordered By: Lucy uQick on 02-20-2023 Urobilinogen Ql (U) Normal mg/dl Normal [facility] Basophil percentageOrdered B y: Lucy Quick on 02-19-2023 Bilirubin [Mass/Vol] 0.30 mg/dL 0.20-1.00 [facility] Comment on above: For patients on eltr ombopag therapy, use of Dimension [place] TBIL is not recommended. Chloride [Moles/Vol] 97 mmol/L 98-107 [facility] Glucose [Mass/Vol] 155 mg/dL 74-106 [facility] Comment on above: Fasting Glucose resu lt greater than or equal to 126 mg/dL suggests DIABETES MELLITUS per A.D.A. criteria. Potassium [Moles/Vol] 3.3 mmol/L 3.5-5.1 [facility] Protein [Mass/Vol] 5.9 g/dL 6.4-8.2 [facility] Sodium [Moles/Vol] 139 mmol/L 136-145 [facility] WBC (Bld) [#/Vol] 7.3 10*3/uL 4.4-11.0 [facility] Blood erythrocytes count (nu mber/volume)Ordered By: Lucy Quick on 02-19-2023 RBC (Bld) [#/Vol] 3.00 10*6/uL 4.2-5.4 [facility] Blood hemoglobin measurement (mass/volume)Ordered By: Lucy Quick on 02-19-2023 Hemoglobin (Bld) [Mass/Vol] 8.4 g/dL 12.0-15.0 [facility] Blood platelet mean volumeOr dered By: Lucy Quick on 02-19-2023 Platelet mean volume (Bld) [Entitic vol] 8.7 fL 6.2-12.0 [facility] Determination of erythrocyte mean corpuscular volume (MCV)Ordered By: Lucy Quick on 02-19-2023 MCV (RBC) [Entitic vol] 98.7 fL 81-99 [facility] Hematocrit Auto (Bld) [Volum e fraction]Ordered By: Lucy Quick on 02-19-2023 Hematocrit (Bld) [Volume fraction] 29.6 % 37-47 [facility] Laboratory - Chemistry and C hemistry - challengeOrdered By: Lucy Qucik on 02-19-2023 ALP [Catalytic activity/Vol] 53 U/L 45-117 [facility] ALT [Catalytic activity/Vol] 15 U/L 13-56 [facility] CO2 [Moles/Vol] 36.0 mmol/L 21.0-32.0 [facility] Globulin (S) [Mass/Vol] 3.3 g/dL 2.2-4.2 [facility] Urea nitrogen/Creatinine [Mass ratio] 12.5 mg/mg 10-20 [facility] Laboratory - Hematology and Cell countsOrdered By: Lucy Quick on 02-19-2023 Erythrocyte distribution width (RBC) [Entitic vol] 53.8 fL 35.1-43.9 [facility] Erythrocyte distribution width (RBC) [Ratio] 14.9 % 11.6-14.6 [facility] MCH (RBC) [Entitic mass] 28.0 pg 27.0-32.0 [facility] MCHC Auto (RBC) [Mass/Vol]Or dered By: Lucy Quick on 02-19-2023 MCHC (RBC) [Mass/Vol] 28.4 g/dL 32-36 [facility] No Panel InformationOrdered By: Lucy Quick on 02-19-2023 Estimated GFR (MDRD) Amer 50 mL/min >60 [facility] Comment on above: GFR Calc Estimated GFR (MDRD) Non-Af Amer 41 mL/min >60 [facility] Comment on above: Non- GFR Calc Platelets bldOrdered By: Josee Quick on 02-19-2023 Platelets (Bld) [#/Vol] 353 10*3/uL 150-450 [facility] Serum or plasma albumin catracho urement (mass/volume)Ordered By: Lucy Quick on 02-19-2023 Albumin [Mass/Vol] 2.6 g/dL 3.2-5.0 [facility] Serum or plasma albumin/glob ulin mass ratioOrdered By: Lucy Quick on 02-19-2023 Albumin/Globulin [Mass ratio] 0.8 {ratio} 0.9-2.4 [facility] Serum or plasma calcium catracho urement (mass/volume)Ordered By: Lucy Quick on 02-19-2023 Calcium [Mass/Vol] 8.8 mg/dL 8.5-10.1 [facility] Serum or plasma creatinine m easurement (mass/volume)Ordered By: Lucy Quick on 02-19-2023 Creatinine [Mass/Vol] 1.36 mg/dL 0.55-1.02 [facility] Comment on above: The validity of the calculated GFR & GFRAA in patients over 70 years has not been determined. Clinical correlation is essential. Serum or plasma urea nitroge n measurement (mass/volume)Ordered By: Lucy Quick on 02-19-2023 Urea nitrogen [Mass/Vol] 17 mg/dL 7-18 [facility] Thin prep Papanicolaou smear with manual screeningOrdered By: Lucy Quick on 02-19-2023 Thin prep Papanicolaou smear with manual screening 14 U/L 15-37 [facility] Thin prep Papanicolaou smear with manual screening 6 5-15 [facility] CASE MANAGEMon 02-15-2023 CASE MANAGEM Normal [facility] CNDSon 02-15-2023 CNDS Normal [facility] CONSULT PROGon 02-15-2023 CONSULT PROG Normal [facility] CASE MANAGEMon 02-14-2023 CASE MANAGEM Normal [facility] 25(OH)D3 SerPl-mCncon 2022 25-hydroxyvitamin D3 [Mass/Vol] 9.2 ng/mL Low >=30.0 [facility] Comment on above: Order Comment: Speci men Type: BLOOD SPECIMENOrdering Facility: [facility] Address: [address] [place] [address] Result Comment: Clas sification of 25 [place] Vitamin D status:Deficiency: <= 20.0 ng/ml.Insufficiency: 21.0-29.0 ng/ml.Sufficiency: >= 30.0 ng/ml. Performed By: #### 1 989-3 ####[facility] LABORATORYCLIA [id number] [place] [address] [place] Ammonia Plas-sCncon 02-14-20 23 Ammonia (P) [Moles/Vol] 24 umol/L Normal 11-51 [facility] Comment on above: Order Comment: Speci men Type: BLOOD SPECIMENOrdering Facility: [facility] Address: [address] [place] [address] Performed By: #### 1 6362-6 ####[facility] LABORATORYCLIA [id number] [place] [address] [place] Bacteria Ur Culton 3 Bacteria identified Cx Nom (U) CULTURE, URINE: No growth (<100 CFU/ml) Normal [facility] Comment on above: Performed By: #### 6 30-4 ####[facility] LABORATORYCLIA [id number] [address] OF [facility] CASE MGT INIT ASSESon 2022 CASE MGT INIT ASSES Normal [facility] CBC panel Auto (Bld)on 02-13 Erythrocyte distribution width (RBC) [Ratio] 15.6 % High 11.5-15.0 [facility] Comment on above: Order Comment: Speci men Type: BLOOD SPECIMENOrdering Facility: [facility] Address: [address] [place] [address] Performed By: #### 5 8410-2 ####[facility] LABORATORYCLIA [id number] [address] Hematocrit (Bld) [Volume fraction] 28.4 % Low 36.0-46.0 [facility] Comment on above: Order Comment: Speci men Type: BLOOD SPECIMENOrdering Facility: [facility] Address: [address] [place] [address] Performed By: #### 5 8410-2 ####[facility] LABORATORYCLIA [id number] [address] Hemoglobin (Bld) [Mass/Vol] 8.2 g/dL Low 11.5-15.5 [facility] Comment on above: Order Comment: Speci men Type: BLOOD SPECIMENOrdering Facility: [facility] Address: [address] [place] [address] Performed By: #### 5 8410-2 ####[facility] LABORATORYCLIA [id number] [address] STATES [facility] MCH (RBC) [Entitic mass] 28.0 pg Normal 26.0-34.0 [facility] Comment on above: Order Comment: Speci men Type: BLOOD SPECIMENOrdering Facility: [facility] Address: [address] [place] [address] Performed By: #### 5 8410-2 ####[facility] LABORATORYCLIA [id number] [address] [place] MCHC (RBC) [Mass/Vol] 28.9 g/dL Low 30.5-36.0 [facility] Comment on above: Order Comment: Speci men Type: BLOOD SPECIMENOrdering Facility: [facility] Address: [address] [place] [address] Performed By: #### 5 8410-2 ####[facility] LABORATORYCLIA [id number] [address] [place] MCV (RBC) [Entitic vol] 96.9 fL Normal 80.0-100.0 [facility] Comment on above: Order Comment: Speci men Type: BLOOD SPECIMENOrdering Facility: [facility] Address: [address] [place] [address] Performed By: #### 5 8410-2 ####[facility] LABORATORYCLIA [id number] [address] [place] Nucleated RBC (Bld) [#/Vol] 0.02 10*3/uL High <0.01 [facility] Comment on above: Order Comment: Speci men Type: BLOOD SPECIMENOrdering Facility: [facility] Address: [address] [place] [address] Performed By: #### 5 8410-2 ####[facility] LABORATORYCLIA [id number] [address] [place] Platelet mean volume (Bld) [Entitic vol] 8.5 fL Low 9.0-12.7 [facility] Comment on above: Order Comment: Speci men Type: BLOOD SPECIMENOrdering Facility: [facility] Address: [address] [place] [address] Performed By: #### 5 8410-2 ####[facility] LABORATORYCLIA [id number] [address] [place] Platelets (Bld) [#/Vol] 287 10*3/uL Normal 150-400 [facility] Comment on above: Order Comment: Speci men Type: BLOOD SPECIMENOrdering Facility: [facility] Address: [address] [address] Performed By: #### 5 8410-2 ####[facility] LABORATORYCLIA [id number] [address] OF [facility] RBC (Bld) [#/Vol] 2.93 10*6/uL Low 3.90-5.20 [facility] Comment on above: Order Comment: Speci men Type: BLOOD SPECIMENOrdering Facility: [facility] Address: [address] [address] Performed By: #### 5 8410-2 ####[facility] LABORATORYCLIA [id number] [address] WBC (Bld) [#/Vol] 7.53 10*3/uL Normal 3.70-11.00 [facility] Comment on above: Order Comment: Speci men Type: BLOOD SPECIMENOrdering Facility: [facility] Address: [address] [address] Performed By: #### 5 8410-2 ####[facility] LABORATORYCLIA [id number] [address] CONSULT PROGon 02-13-2023 CONSULT PROG Normal [facility] CONSULT PROG Normal [facility] Comp Metab 2000 Pnl SerPlon 02-13-2023 Chloride [Moles/Vol] 98 mmol/L Low 102-109 [facility] Comment on above: Order Comment: Speci men Type: BLOOD SPECIMENOrdering Facility: [facility] Address: [address] [place] [address] Performed By: #### 2 4323-8, 2132-9 ####[facility] LABORATORYCLIA [id number] [address] Order Comment: Speci men Type: VENOUS BLOOD SPECIMENOrdering Facility: [facility] Address: [address] [place] [address] Performed By: #### 2 4344-4 ####[facility] LABORATORYCLIA [id number] [address] [place] Comprehensive metabolic 2000 panelon 02-13-2023 Albumin [Mass/Vol] 3.3 g/dL Low 3.9-4.9 [facility] Comment on above: Order Comment: Speci men Type: BLOOD SPECIMENOrdering Facility: [facility] Address: [address] [place] [address] Performed By: #### 2 4328, 2132-06 ####[facility] LABORATORYCLIA [id number] [address] [place] ALP [Catalytic activity/Vol] 65 U/L Normal 34-123 [facility] Comment on above: Order Comment: Speci men Type: BLOOD SPECIMENOrdering Facility: [facility] Address: [address] [place] [address] Performed By: #### 2 4328, 2132-06 ####[facility] LABORATORYCLIA [id number] [address] STATES [facility] ALT With P-5'-P [Catalytic activity/Vol] 8 U/L Normal 7-38 [facility] Comment on above: Order Comment: Speci men Type: BLOOD SPECIMENOrdering Facility: [facility] Address: [address] [place] [address] Performed By: #### 2 43201-03, 2132-06 ####[facility] LABORATORYCLIA [id number] [address] STATES [facility] Anion gap [Moles/Vol] 8 mmol/L Low 9-18 [facility] Comment on above: Order Comment: Speci men Type: BLOOD SPECIMENOrdering Facility: [facility] Address: [address] [place] [address] Performed By: #### 2 43201-03, 2132-06 ####[facility] LABORATORYCLIA [id number] [address] [place] AST With P-5'-P [Catalytic activity/Vol] 12 U/L Low 13-35 [facility] Comment on above: Order Comment: Speci men Type: BLOOD SPECIMENOrdering Facility: [facility] Address: [address] [address] Performed By: #### 2 4323-05, 2132-06 ####[facility]ORATORYCLIA [id number] [address] [place] Bilirubin [Mass/Vol] 0.3 mg/dL Normal 0.2-1.3 [facility] Comment on above: Order Comment: Speci men Type: BLOOD SPECIMENOrdering Facility: [facility] Address: [address] [place] [address] Performed By: #### 2 4323-05, 2132-06 ####[facility] LABORATORYCLIA [id number] [place] [address] [place] Calcium [Mass/Vol] 8.7 mg/dL Normal 8.5-10.2 [facility] Comment on above: Order Comment: Speci men Type: BLOOD SPECIMENOrdering Facility: [facility] Address: [address] [place] [address] Performed By: #### 2 4323-05, 2132-06 ####[facility] LABORATORYCLIA [id number] [place] [address] [place] CO2 [Moles/Vol] 38 mmol/L High 22-30 [facility] Comment on above: Order Comment: Speci men Type: BLOOD SPECIMENOrdering Facility: [facility] Address: [address] [place] [address] Performed By: #### 2 4323-05, 2132-06 ####[facility] LABORATORYCLIA [id number] [place] [address] [place] Creatinine [Mass/Vol] 1.37 mg/dL High 0.58-0.96 [facility] Comment on above: Order Comment: Speci men Type: BLOOD SPECIMENOrdering Facility: [facility] Address: [address] [place] [address] Performed By: #### 2 4323-05, 2132-06 ####[facility] LABORATORYCLIA [id number] [place] [address] [place] ESTIMATED GLOMERULAR FILTRATION RATE 43 mL/min/1.73m??? Low >=60 [facility] Comment on above: Order Comment: Scott seals Type: BLOOD SPECIMENOrdering Facility: [facility] Address: [address] [place] [address] Result Comment: Petra mated Glomerular Filtration Rate (eGFR) is calculated using the 2020 CKD-EPI creatinine equation. This equation utilizes serum creatinine, sex, and age as parameters. The creatinine assay has traceable calibration to isotope dilution-mass spectrometry. Refer to KDIGO guidelines for clinical interpretation. In patients with unstable renal function, e.g. those with acute kidney injury, the eGFR may not accurately reflect actual GFR. Performed By: #### 2 4323-8, 2132-06 ####[facility] LABORATORYCLIA [id number] [place] [address] [place] Glucose [Mass/Vol] 118 mg/dL High 74-99 [facility] Comment on above: Order Comment: Scott seals Type: BLOOD SPECIMENOrdering Facility: [facility] Address: [address] [place] [address] Result Comment: The [place] [employer] (ADA) provides guidance for cutoff values for fasting glucose and random glucose. The ADA defines fasting as no caloric intake for at least 8 hours. Fasting plasma glucose results between 100 to 125 mg/dL indicate increased risk for diabetes (prediabetes).Fasting plasma glucose results greater than or equal to 126 mg/dL meet the criteria for diagnosis of diabetes. In the absence of unequivocal hyperglycemia, results should be confirmed by repeat testing. In a patient with classic symptoms of hyperglycemia or hyperglycemic crisis, random plasma glucose results greater than or equal to 200 mg/dL meet the criteria for diagnosis of diabetes.Reference: Standards of Medical Care in Diabetes 2016, [place] [employer]. Diabetes Care. 2016.39(Suppl 1). Performed By: #### 2 4323-8, 2132-06 ####[facility] LABORATORYCLIA [id number] [place] [address] [place] Potassium [Moles/Vol] 4.1 mmol/L Normal 3.7-5.1 [facility] Comment on above: Order Comment: Speci men Type: BLOOD SPECIMENOrdering Facility: [facility] Address: [address] [place] [address] Performed By: #### 2 4323-05, 2132-06 ####[facility] LABORATORYCLIA [id number] [place] [address] [place] Protein [Mass/Vol] 5.2 g/dL Low 6.3-8.0 [facility] Comment on above: Order Comment: Speci men Type: BLOOD SPECIMENOrdering Facility: [facility] Address: [address] [place] [address] Performed By: #### 2 4323-05, 2132-06 ####[facility] LABORATORYCLIA [id number] [place] [address] [place] Sodium [Moles/Vol] 144 mmol/L Normal 136-144 [facility] Comment on above: Order Comment: Speci men Type: BLOOD SPECIMENOrdering Facility: [facility] Address: [address] [place] [address] Performed By: #### 2 4323-05, 2132-06 ####[facility] LABORATORYCLIA [id number] [place] [address] [place] Urea nitrogen [Mass/Vol] 21 mg/dL Normal 7-21 [facility] Comment on above: Order Comment: Speci men Type: BLOOD SPECIMENOrdering Facility: [facility] Address: [address] [place] [address] Performed By: #### 2 4323-05, 2132-06 ####[facility] LABORATORYCLIA [id number] [place] [address] [place] Gas and Carbon monoxide pane l (BldV)on 02-13-2023 Base excess Calc (BldV) [Moles/Vol] 10 mmol/L High 0-2 [facility] Comment on above: Order Comment: Speci men Type: VENOUS BLOOD SPECIMENOrdering Facility: [facility] Address: [address] [place] [address] Performed By: #### 2 4344-4 ####[facility] LABORATORYCLIA [id number] [address] Body temperature 98.42 [degF] Normal [facility] Comment on above: Order Comment: Speci men Type: VENOUS BLOOD SPECIMENOrdering Facility: [facility] Address: [address] [place] [address] Performed By: #### 2 4344-4 ####[facility] LABORATORYCLIA [id number] [address] Calcium.ionized (BldV) [Mass/Vol] 1.16 mmol/L Normal 1.08-1.30 [facility] Comment on above: Order Comment: Speci men Type: VENOUS BLOOD SPECIMENOrdering Facility: [facility] Address: [address] [place] [address] Performed By: #### 2 4344-4 ####[facility] LABORATORYCLIA [id number] [address] Calcium.ionized adjusted to pH 7.4 (BldA) [Moles/Vol] 1.14 mmol/L Normal 1.08-1.30 [facility] Comment on above: Order Comment: Speci men Type: VENOUS BLOOD SPECIMENOrdering Facility: [facility] Address: [address] [place] [address] Performed By: #### 2 4344-4 ####[facility] LABORATORYCLIA [id number] [address] [place] Carboxyhemoglobin (BldV) [Mass fraction] 2.3 % High 0.0-2.0 [facility] Comment on above: Order Comment: Speci men Type: VENOUS BLOOD SPECIMENOrdering Facility: [facility] Address: [address] [place] [address] Result Comment: Carb oxyhemoglobin Reference Range for Smokers: 2.0-8.0% Performed By: #### 2 4344-4 ####[facility] LABORATORYCLIA [id number] [address] CO2 (BldV) [Partial pressure] 65 mm[Hg] High 42-55 [facility] Comment on above: Order Comment: Speci men Type: VENOUS BLOOD SPECIMENOrdering Facility: [facility] Address: [address] [place] [address] Performed By: #### 2 4344-4 ####[facility] LABORATORYCLIA [id number] [place] [address] [place] CO2 [Moles/Vol] 34 mmol/L High 25-29 [facility] Comment on above: Order Comment: Speci men Type: VENOUS BLOOD SPECIMENOrdering Facility: [facility] Address: [address] [place] [address] Performed By: #### 2 4344-4 ####[facility] LABORATORYCLIA [id number] [address] [place] CO2 adjusted to patient's actual temperature (BldV) [Partial pressure] 65 mmHg High 42-55 [facility] Comment on above: Order Comment: Speci men Type: VENOUS BLOOD SPECIMENOrdering Facility: [facility] Address: [address] [address] Performed By: #### 2 4344-4 ####[facility] LABORATORYCLIA [id number] [place] [address] [place] Glucose [Mass/Vol] 116 mg/dL High 60-105 [facility] Comment on above: Order Comment: Speci men Type: VENOUS BLOOD SPECIMENOrdering Facility: [facility] Address: [address] [address] Performed By: #### 2 4344-4 ####[facility] LABORATORYCLIA [id number] [place] [address] [place] HCO3 (Bld) [Moles/Vol] 36 mmol/L High 24-28 [facility] Comment on above: Order Comment: Speci men Type: VENOUS BLOOD SPECIMENOrdering Facility: [facility] Address: [address] [address] Performed By: #### 2 4344-4 ####[facility] LABORATORYCLIA [id number] [address] OF [facility] Hematocrit (Bld) [Volume fraction] 27.0 % Low 36.0-46.0 [facility] Comment on above: Order Comment: Speci men Type: VENOUS BLOOD SPECIMENOrdering Facility: [facility] Address: [address] [address] Performed By: #### 2 4344-4 ####[facility] LABORATORYCLIA [id number] [address] [place] OF [facility] Hemoglobin (Bld) [Mass/Vol] 8.7 g/dL Low 11.5-15.5 [facility] Comment on above: Order Comment: Speci men Type: VENOUS BLOOD SPECIMENOrdering Facility: [facility] Address: [address] [place] [address] Performed By: #### 2 4344-4 ####[facility] LABORATORYCLIA [id number] [address] Lactate [Moles/Vol] 0.7 mmol/L Normal 0.5-2.2 [facility] Comment on above: Order Comment: Speci men Type: VENOUS BLOOD SPECIMENOrdering Facility: [facility] Address: [address] [place] [address] Performed By: #### 2 4344-4 ####[facility] LABORATORYCLIA [id number] [address] [place] Methemoglobin (Bld) [Mass fraction] 1.5 % Normal 0.0-1.5 [facility] Comment on above: Order Comment: Speci men Type: VENOUS BLOOD SPECIMENOrdering Facility: [facility] Address: [address] [place] [address] Performed By: #### 2 4344-4 ####[facility] LABORATORYCLIA [id number] [address] O2 THERAPY NC = Nasal Cannula Normal [facility] Comment on above: Order Comment: Speci men Type: VENOUS BLOOD SPECIMENOrdering Facility: [facility] Address: [address] [place] [address] Result Comment: 4 Performed By: #### 2 4344-4 ####[facility] LABORATORYCLIA [id number] [address] [place] Oxygen (BldV) [Partial pressure] 145 mm[Hg] High 35-45 [facility] Comment on above: Order Comment: Speci men Type: VENOUS BLOOD SPECIMENOrdering Facility: [facility] Address: [address] [place] [address] Performed By: #### 2 4344-4 ####[facility] LABORATORYCLIA [id number] [address] OF [place] Oxygen adjusted to patient's actual temperature (BldV) [Partial pressure] 145 mmHg High 35-45 [facility] Comment on above: Order Comment: Speci men Type: VENOUS BLOOD SPECIMENOrdering Facility: [facility] Address: [address] [place] [address] Performed By: #### 2 4344-4 ####[facility] LABORATORYCLIA [id number] [address] STATES [place] Oxygen saturation in Venous blood 99 % High 60-85 [facility] Comment on above: Order Comment: Speci men Type: VENOUS BLOOD SPECIMENOrdering Facility: [facility] Address: [address] [place] [address] Performed By: #### 2 4344-4 ####[facility]ORATORYCLIA [id number] [address] [place] Oxyhemoglobin (BldV) [Mass fraction] 95 % High 60-85 [facility] Comment on above: Order Comment: Speci men Type: VENOUS BLOOD SPECIMENOrdering Facility: [facility] Address: [address] [place] [address] Performed By: #### 2 4344-4 ####[facility]ORATORYCLIA [id number] [place] [id number] [place] pH (BldV) 7.36 [pH] Normal 7.32-7.42 [facility] Comment on above: Order Comment: Speci men Type: VENOUS BLOOD SPECIMENOrdering Facility: [facility] Address: [address] [place] [address] Performed By: #### 2 4344-4 ####[facility] LABORATORYCLIA [id number] [address] pH adjusted to patient's actual temperature (BldV) 7.36 Normal 7.32-7.42 [facility] Comment on above: Order Comment: Speci men Type: VENOUS BLOOD SPECIMENOrdering Facility: [facility] Address: [address] [place] [address] Performed By: #### 2 4344-4 ####[facility] LABORATORYCLIA [id number] [address] [place] Potassium [Moles/Vol] 3.9 mmol/L Normal 3.5-5.0 [facility] Comment on above: Order Comment: Speci men Type: VENOUS BLOOD SPECIMENOrdering Facility: [facility] Address: [address] [place] [address] Performed By: #### 2 4344-4 ####[facility] LABORATORYCLIA [id number] [address] [place] Sodium [Moles/Vol] 143 mmol/L Normal 136-144 [facility] Comment on above: Order Comment: Speci men Type: VENOUS BLOOD SPECIMENOrdering Facility: [facility] Address: [address] [place] [address] Performed By: #### 2 4344-4 ####[facility] LABORATORYCLIA [id number] [address] [place] HbA1c (Bld)on 02-13-2023 Average glucose Estimated from glycated hemoglobin (Bld) [Mass/Vol] 151 mg/dL Normal [facility] Comment on above: Order Comment: Speci men Type: BLOOD SPECIMENOrdering Facility: [facility] Address: [address] [place] [address] Result Comment: eAG: (Estimated average glucose) is a calculated value from HgbA1c and is commissary representative of the average blood glucose level in the last 2-3 month period. Performed By: #### 5 5454-3 ####[facility] LABORATORYCLIA [id number] [address] HbA1c (Bld) [Mass fraction] 6.9 % High 4.3-5.6 [facility] Comment on above: Order Comment: Speci men Type: BLOOD SPECIMENOrdering Facility: [facility] Address: [address] [address] Result Comment: Amer ican Diabetes Association guidelines indicate that patients with HgbA1c in the range 5.7-6.4% are at increased risk for development of diabetes, and intervention by lifestyle modification may be beneficial. HgbA1c greater or equal to 6.5% is considered diagnostic of diabetes. Performed By: #### 5 5454-3 ####[facility] LABORATORYCLIA [id number] [address] OF [facility] Lipid 1996 panelon 3 Cholesterol [Mass/Vol] 118 mg/dL Normal <200 [facility] Comment on above: Order Comment: Speci bozena Type: BLOOD SPECIMENOrdering Facility: [facility] Address: [address] [address] Result Comment: <200 mg/dL, Desirable 200-239 mg/dL, Borderline high>239 mg/dL, High Performed By: #### 1 9123-9, 92747-1, 277-, 6-3 ####[facility] LABORATORYCLIA [id number] [address] Cholesterol in HDL [Mass/Vol] 39 mg/dL Low >39 [facility] Comment on above: Order Comment: [facility] Type: BLOOD SPECIMENOrdering Facility: [facility] Address: [address] [address] Result Comment: 40-5 9 mg/dL, Acceptable>59 mg/dL, High: Negative risk factor for coronary heart disease<40 mg/dL, Low: Positive risk factor for coronary heart disease Performed By: #### 1 9123-9, 89327-0, 2777-1, 3016-3 ####[facility] LABORATORYCLIA [id number] [place], [place] [address] [place] [address] OF [facility] Cholesterol in LDL [Mass/Vol] 40 mg/dL Normal <100 [facility] Comment on above: Order Comment: Luhi men Type: BLOOD SPECIMENOrdering Facility: [facility] Address: [address] [place] [address] Result Comment: <100 mg/dL, Optimal 100-129 mg/dL, Near optimal/above optimal 130-159 mg/dL, Borderline high 160-189 mg/dL, High>189 mg/dL, Very highSecondary prevention optimal LDL Cholesterol levels are recommended to be < 70 mg/dL Performed By: #### 1 9123-9, 62189-5, 277-, 3015-3 ####[facility]ITALCLIA [id number] [address] Cholesterol in LDL/Cholesterol in HDL [Mass ratio] 1.03 {ratio} Normal <2.54 [facility] Comment on above: Order Comment: Spectalia men Type: BLOOD SPECIMENOrdering Facility: [facility] Address: [address] [place] [address] Result Comment: Refe rence:1. National Cholesterol Education Program ATP III Guideline At-A-Glance Quick Desk Reference: National Heart, Lung, and Blood [place]. National Institutes of Health. 2001: NIH Publication No. 01-3305.2. An International Atherosclerosis Society position paper: global recommendations for the management of dyslipidemia: executive summary, Atherosclerosis. 2014: 232(2):410-413. Performed By: #### 1 9123-9, 27640-0, 277-, 3015-3 ####[facility] LABORATORYCLIA [id number] [place] [id number] [facility] OF [facility] Cholesterol in VLDL [Mass/Vol] 39 mg/dL High <30 [facility] Comment on above: Order Comment: Scott bozena Type: BLOOD SPECIMENOrdering Facility: [facility] Address: [address] [place] [address] Performed By: #### 1 9123-9, 17863-1, 277-1, 6-3 ####[facility] LABORATORYCLIA [id number] [address] [place] Cholesterol non HDL [Mass/Vol] 79 mg/dL Normal <130 [facility] Comment on above: Order Comment: Speci men Type: BLOOD SPECIMENOrdering Facility: [facility] Address: [address] [address] Result Comment: <130 mg/dL, Optimal 130-159 mg/dL, Near optimal/above optimal 160-189 mg/dL, Borderline high 190-219 mg/dL, High>219 mg/dL, Very highSecondary prevention optimal non HDL Cholesterol levels are recommended to be <100 mg/dL Performed By: #### 1 9123-9, 34739-7, 277-, 3015-3 ####[facility] LABORATORYCLIA [id number] [address] [place] Cholesterol.total/Isatu sterol in HDL [Mass ratio] 3.03 {ratio} Normal <5.10 [facility] Comment on above: Order Comment: Speci men Type: BLOOD SPECIMENOrdering Facility: [facility] Address: [address] [place] [address] Performed By: #### 1 9123-9, 20711-9, 2776-, 3015-3 ####[facility] LABORATORYCLIA [id number] [address] [place] FASTING TIME 12 hrs Normal [facility] Comment on above: Order Comment: Speci men Type: BLOOD SPECIMENOrdering Facility: [facility] Address: [address] [address] Performed By: #### 1 9123-9, 30696-6, 2776-, 3015-3 ####[facility] LABORATORYCLIA [id number] [address] OF [facility] Triglyceride [Mass/Vol] 194 mg/dL High <150 [facility] Comment on above: Order Comment: Speci men Type: BLOOD SPECIMENOrdering Facility: [facility] Address: [address] [address] Result Comment: <150 mg/dL, Normal 150-199 mg/dL, Borderline high 200-499 mg/dL, High>499 mg/dL, Very high Performed By: #### 1 9123-9, 17378-6, 2776-1, 3015-3 ####[facility] LABORATORYCLIA [id number] [place], [place] [address] [place] [address] STATES OF [facility] Magnesium SerPl-mCncon 02-13 Magnesium [Mass/Vol] 1.7 mg/dL Normal 1.7-2.3 [facility] Comment on above: Order Comment: Speci men Type: BLOOD SPECIMENOrdering Facility: [facility] Address: [address] [place] [address] Performed By: #### 1 9123-9, 74701-7, 2776-, 3015-3 ####[facility] LABORATORYCLIA [id number] [address] Phosphate SerPl-mCncon 02-13 Phosphate [Mass/Vol] 3.3 mg/dL Normal 2.7-4.8 [facility] Comment on above: Order Comment: Speci men Type: BLOOD SPECIMENOrdering Facility: [facility] Address: [address] [place] [address] Performed By: #### 1 9123-9, 25128-7, 2776-1, 3015-3 ####[facility] LABORATORYCLIA [id number] [address] [place] TSH SerPl-aCncon 02-13-2023 TSH Qn 2.810 m[IU]/L Normal 0.270-4.200 [facility] Comment on above: Order Comment: Speci men Type: BLOOD SPECIMENOrdering Facility: [facility] Address: [address] [place] [address] Performed By: #### 1 9123-9, 70242-5, 2776-1, 6-3 ####[facility]ORATORYCLIA [id number] [place] [address] [place] Vit B12 SerPl-mCncon 023 Cobalamin (Vitamin B12) [Mass/Vol] 565 pg/mL Normal 232-1245 [facility] Comment on above: Order Comment: Speci men Type: BLOOD SPECIMENOrdering Facility: [facility] Address: [address] [place] [address] Performed By: #### 2 4323-8, 2132-9 ####[facility] LABORATORYCLIA [id number] [address] [place] ALLIED HEALTHon 02-12-2023 ALLIED HEALTH Normal [facility] CBC panel Auto (Bld)on 02-12 Erythrocyte distribution width (RBC) [Ratio] 15.7 % High 11.5-15.0 [facility] Comment on above: Order Comment: Speci men Type: BLOOD SPECIMENOrdering Facility: [facility] Address: [address] [place] [address] Performed By: #### 5 8410-2 ####[facility] LABORATORYCLIA [id number] [address] STATES OF [facility] Hematocrit (Bld) [Volume fraction] 31.0 % Low 36.0-46.0 [facility] Comment on above: Order Comment: Speci men Type: BLOOD SPECIMENOrdering Facility: [facility] Address: [address] [place] [address] Performed By: #### 5 8410-2 ####[facility] LABORATORYCLIA [id number] [address] [place] Hemoglobin (Bld) [Mass/Vol] 9.0 g/dL Low 11.5-15.5 [facility] Comment on above: Order Comment: Speci men Type: BLOOD SPECIMENOrdering Facility: [facility] Address: [address] [place] [address] Performed By: #### 5 8410-2 ####[facility] LABORATORYCLIA [id number] [address] [place] MCH (RBC) [Entitic mass] 28.6 pg Normal 26.0-34.0 [facility] Comment on above: Order Comment: Speci men Type: BLOOD SPECIMENOrdering Facility: [facility] Address: [address] [place] [address] Performed By: #### 5 8410-2 ####[facility] LABORATORYCLIA [id number] [address] MCHC (RBC) [Mass/Vol] 29.0 g/dL Low 30.5-36.0 [facility] Comment on above: Order Comment: Speci men Type: BLOOD SPECIMENOrdering Facility: [facility] Address: [address] [place] [address] Performed By: #### 5 8410-2 ####[facility] LABORATORYCLIA [id number] [address] [place] MCV (RBC) [Entitic vol] 98.4 fL Normal 80.0-100.0 [facility] Comment on above: Order Comment: Speci men Type: BLOOD SPECIMENOrdering Facility: [facility] Address: [address] [place] [address] Performed By: #### 5 8410-2 ####[facility] LABORATORYCLIA [id number] [address] Nucleated RBC (Bld) [#/Vol] 10*3/uL Normal <0.01 [facility] Comment on above: Order Comment: Speci men Type: BLOOD SPECIMENOrdering Facility: [facility] Address: [address] [place] [address] Performed By: #### 5 8410-2 ####[facility] LABORATORYCLIA [id number] [address] STATES [facility] Platelet mean volume (Bld) [Entitic vol] 8.4 fL Low 9.0-12.7 [facility] Comment on above: Order Comment: Speci men Type: BLOOD SPECIMENOrdering Facility: [facility] Address: [address] [place] [address] Performed By: #### 5 8410-2 ####[facility] LABORATORYCLIA [id number] [place] [address] [place] Platelets (Bld) [#/Vol] 305 10*3/uL Normal 150-400 [facility] Comment on above: Order Comment: Speci men Type: BLOOD SPECIMENOrdering Facility: [facility] Address: [address] [place] [address] Performed By: #### 5 8410-2 ####[facility] LABORATORYCLIA [id number] [place] [address] [place] RBC (Bld) [#/Vol] 3.15 10*6/uL Low 3.90-5.20 [facility] Comment on above: Order Comment: Speci men Type: BLOOD SPECIMENOrdering Facility: [facility] Address: [address] [place] [address] Performed By: #### 5 8410-2 ####[facility] LABORATORYCLIA [id number] [address] STATES OF [facility] WBC (Bld) [#/Vol] 7.57 10*3/uL Normal 3.70-11.00 [facility] Comment on above: Order Comment: Speci men Type: BLOOD SPECIMENOrdering Facility: [facility] Address: [address] [place] [address] Performed By: #### 5 8410-2 ####[facility] LABORATORYCLIA [id number] [address] [place] CONSULTon 02-12-2023 CONSULT Normal [facility] Gas and Carbon monoxide pane l (BldV)on 02-12-2023 Base excess Calc (BldV) [Moles/Vol] 8 mmol/L High 0-2 [facility] Comment on above: Order Comment: Speci men Type: VENOUS BLOOD SPECIMENOrdering Facility: [facility] Address: [address] [place] [address] Performed By: #### 2 4344-4 ####[facility] LABORATORYCLIA [id number] [address] [place] Body temperature 98.6 [degF] Normal [facility] Comment on above: Order Comment: Speci men Type: VENOUS BLOOD SPECIMENOrdering Facility: [facility] Address: [address] [place] [address] Performed By: #### 2 4344-4 ####[facility] LABORATORYCLIA [id number] [address] OF [facility] Calcium.ionized (BldV) [Mass/Vol] 1.11 mmol/L Normal 1.08-1.30 [facility] Comment on above: Order Comment: Speci men Type: VENOUS BLOOD SPECIMENOrdering Facility: [facility] Address: [address] [place] [address] Performed By: #### 2 4344-4 ####[facility] LABORATORYCLIA [id number] [address] OF [facility] Calcium.ionized adjusted to pH 7.4 (BldA) [Moles/Vol] 1.08 mmol/L Normal 1.08-1.30 [facility] Comment on above: Order Comment: Speci men Type: VENOUS BLOOD SPECIMENOrdering Facility: [facility] Address: [address] [place] [address] Performed By: #### 2 4344-4 ####[facility] LABORATORYCLIA [id number] [address] [place] Carboxyhemoglobin (BldV) [Mass fraction] 2.5 % High 0.0-2.0 [facility] Comment on above: Order Comment: Speci men Type: VENOUS BLOOD SPECIMENOrdering Facility: [facility] Address: [address] [place] [address] Result Comment: Carb oxyhemoglobin Reference Range for Smokers: 2.0-8.0% Performed By: #### 2 4344-4 ####[facility] LABORATORYCLIA [id number] [address] OF [facility] Chloride [Moles/Vol] 98 mmol/L Low 102-109 [facility] Comment on above: Order Comment: Speci men Type: VENOUS BLOOD SPECIMENOrdering Facility: [facility] Address: [address] [address] Performed By: #### 2 4344-4 ####[facility] LABORATORYCLIA [id number] [address] [place] CO2 (BldV) [Partial pressure] 64 mm[Hg] High 42-55 [facility] Comment on above: Order Comment: Speci men Type: VENOUS BLOOD SPECIMENOrdering Facility: [facility] Address: [address] [address] Performed By: #### 2 4344-4 ####[facility] LABORATORYCLIA [id number] [address] [place] CO2 [Moles/Vol] 33 mmol/L High 25-29 [facility] Comment on above: Order Comment: Speci men Type: VENOUS BLOOD SPECIMENOrdering Facility: [facility] Address: [address] [place] [address] Performed By: #### 2 4344-4 ####[facility] LABORATORYCLIA [id number] [address] [place] Glucose [Mass/Vol] 178 mg/dL High 60-105 [facility] Comment on above: Order Comment: Speci men Type: VENOUS BLOOD SPECIMENOrdering Facility: [facility] Address: [address] [place] [address] Performed By: #### 2 4344-4 ####[facility] LABORATORYCLIA [id number] [place] [address] [place] HCO3 (Bld) [Moles/Vol] 35 mmol/L High 24-28 [facility] Comment on above: Order Comment: Speci men Type: VENOUS BLOOD SPECIMENOrdering Facility: [facility] Address: [address] [place] [address] Performed By: #### 2 4344-4 ####[facility]ATORYCLIA [id number] [place] [address] [place] Hematocrit (Bld) [Volume fraction] 30.6 % Low 36.0-46.0 [facility] Comment on above: Order Comment: Speci men Type: VENOUS BLOOD SPECIMENOrdering Facility: [facility] Address: [address] [place] [address] Performed By: #### 2 4344-4 ####[facility] LABORATORYCLIA [id number] [address] STATES OF [facility] Hemoglobin (Bld) [Mass/Vol] 9.9 g/dL Low 11.5-15.5 [facility] Comment on above: Order Comment: Speci men Type: VENOUS BLOOD SPECIMENOrdering Facility: [facility] Address: [address] [place] [address] Performed By: #### 2 4344-4 ####[facility] LABORATORYCLIA [id number] [address] Lactate [Moles/Vol] 1.0 mmol/L Normal 0.5-2.2 [facility] Comment on above: Order Comment: Speci men Type: VENOUS BLOOD SPECIMENOrdering Facility: [facility] Address: [address] [place] [address] Performed By: #### 2 4344-4 ####[facility] LABORATORYCLIA [id number] [address] Methemoglobin (Bld) [Mass fraction] 1.4 % Normal 0.0-1.5 [facility] Comment on above: Order Comment: Speci men Type: VENOUS BLOOD SPECIMENOrdering Facility: [facility] Address: [address] [place] [address] Performed By: #### 2 4344-4 ####[facility] LABORATORYCLIA [id number] [address] O2 THERAPY NC = Nasal Cannula Normal [facility] Comment on above: Order Comment: Speci men Type: VENOUS BLOOD SPECIMENOrdering Facility: [facility] Address: [address] [place] [address] Result Comment: 4 L Performed By: #### 2 4344-4 ####[facility]ORATORYCLIA [id number] [place] [address] [place] Oxygen (BldV) [Partial pressure] 184 mm[Hg] High 35-45 [facility] Comment on above: Order Comment: Speci men Type: VENOUS BLOOD SPECIMENOrdering Facility: [facility] Address: [address] [place] [address] Performed By: #### 2 4344-4 ####[facility] LABORATORYCLIA [id number] [address] [place] Oxygen saturation in Venous blood 99 % High 60-85 [facility] Comment on above: Order Comment: Speci men Type: VENOUS BLOOD SPECIMENOrdering Facility: [facility] Address: [address] [place] [address] Performed By: #### 2 4344-4 ####[facility] LABORATORYCLIA [id number] [address] [place] Oxyhemoglobin (BldV) [Mass fraction] 95 % High 60-85 [facility] Comment on above: Order Comment: Speci men Type: VENOUS BLOOD SPECIMENOrdering Facility: [facility] Address: [address] [place] [address] Performed By: #### 2 4344-4 ####[facility] LABORATORYCLIA [id number] [address] [place] pH (BldV) 7.35 [pH] Normal 7.32-7.42 [facility] Comment on above: Order Comment: Speci men Type: VENOUS BLOOD SPECIMENOrdering Facility: [facility] Address: [address] [address] Performed By: #### 2 4344-4 ####[facility] LABORATORYCLIA [id number] [address] [place] Potassium [Moles/Vol] 4.5 mmol/L Normal 3.5-5.0 [facility] Comment on above: Order Comment: Speci men Type: VENOUS BLOOD SPECIMENOrdering Facility: [facility] Address: [address] [place] [address] Performed By: #### 2 4344-4 ####[facility] LABORATORYCLIA [id number] [address] [place] Sodium [Moles/Vol] 140 mmol/L Normal 136-144 [facility] Comment on above: Order Comment: Speci men Type: VENOUS BLOOD SPECIMENOrdering Facility: [facility] Address: [address] [place] [address] Performed By: #### 2 4344-4 ####[facility] LABORATORYCLIA [id number] [address] [place] Base excess Calc (BldV) [Moles/Vol] 7 mmol/L High 0-2 [facility] Comment on above: Order Comment: Speci men Type: VENOUS BLOOD SPECIMENOrdering Facility: [facility] Address: [address] [place] [address] Performed By: #### 2 4344-4 ####[facility] LABORATORYCLIA [id number] [address] Body temperature 96.26 [degF] Normal [facility] Comment on above: Order Comment: Speci men Type: VENOUS BLOOD SPECIMENOrdering Facility: [facility] Address: [address] [place] [address] Performed By: #### 2 4344-4 ####[facility] LABORATORYCLIA [id number] [address] OF [place] Calcium.ionized (BldV) [Mass/Vol] 1.16 mmol/L Normal 1.08-1.30 [facility] Comment on above: Order Comment: Speci men Type: VENOUS BLOOD SPECIMENOrdering Facility: [facility] Address: [address] [place] [address] Performed By: #### 2 4344-4 ####[facility] LABORATORYCLIA [id number] [address] Calcium.ionized adjusted to pH 7.4 (BldA) [Moles/Vol] 1.09 mmol/L Normal 1.08-1.30 [facility] Comment on above: Order Comment: Speci men Type: VENOUS BLOOD SPECIMENOrdering Facility: [facility] Address: [address] [address] Performed By: #### 2 4344-4 ####[facility] LABORATORYCLIA [id number] [address] [place] Carboxyhemoglobin (BldV) [Mass fraction] 2.0 % Normal 0.0-2.0 [facility] Comment on above: Order Comment: Speci men Type: VENOUS BLOOD SPECIMENOrdering Facility: [facility] Address: [address] [place] [address] Result Comment: Carb oxyhemoglobin Reference Range for Smokers: 2.0-8.0% Performed By: #### 2 4344-4 ####[facility] LABORATORYCLIA [id number] [address] [place] Chloride [Moles/Vol] 97 mmol/L Low 102-109 [facility] Comment on above: Order Comment: Speci men Type: VENOUS BLOOD SPECIMENOrdering Facility: [facility] Address: [address] [place] [address] Performed By: #### 2 4344-4 ####[facility] LABORATORYCLIA [id number] [address] [place] CO2 (BldV) [Partial pressure] 76 mm[Hg] High 42-55 [facility] Comment on above: Order Comment: Speci men Type: VENOUS BLOOD SPECIMENOrdering Facility: [facility] Address: [address] [place] [address] Performed By: #### 2 4344-4 ####[facility] LABORATORYCLIA [id number] [address] [place] CO2 [Moles/Vol] 34 mmol/L High 25-29 [facility] Comment on above: Order Comment: Speci men Type: VENOUS BLOOD SPECIMENOrdering Facility: [facility] Address: [address] [place] [address] Performed By: #### 2 4344-4 ####[facility] LABORATORYCLIA [id number] [place] CO2 adjusted to patient's actual temperature (BldV) [Partial pressure] 72 mmHg High 42-55 [facility] Comment on above: Order Comment: Speci men Type: VENOUS BLOOD SPECIMENOrdering Facility: [facility] Address: [address] [address] Performed By: #### 2 4344-4 ####[facility] LABORATORYCLIA [id number] [place] [address] [place] Glucose [Mass/Vol] 187 mg/dL High 60-105 [facility] Comment on above: Order Comment: Speci men Type: VENOUS BLOOD SPECIMENOrdering Facility: [facility] Address: [address] [place] [address] Performed By: #### 2 4344-4 ####[facility] LABORATORYCLIA [id number] [address] [place] HCO3 (Bld) [Moles/Vol] 35 mmol/L High 24-28 [facility] Comment on above: Order Comment: Speci men Type: VENOUS BLOOD SPECIMENOrdering Facility: [facility] Address: [address] [place] [address] Performed By: #### 2 4344-4 ####[facility] LABORATORYCLIA [id number] [address] [place] Hematocrit (Bld) [Volume fraction] 29.0 % Low 36.0-46.0 [facility] Comment on above: Order Comment: Speci men Type: VENOUS BLOOD SPECIMENOrdering Facility: [facility] Address: [address] [address] Performed By: #### 2 4344-4 ####[facility] LABORATORYCLIA [id number] [address] [place] Hemoglobin (Bld) [Mass/Vol] 9.4 g/dL Low 11.5-15.5 [facility] Comment on above: Order Comment: Speci men Type: VENOUS BLOOD SPECIMENOrdering Facility: [facility] Address: [address] [address] Performed By: #### 2 4344-4 ####[facility] LABORATORYCLIA [id number] [address] [place] Lactate [Moles/Vol] 1.5 mmol/L Normal 0.5-2.2 [facility] Comment on above: Order Comment: Speci men Type: VENOUS BLOOD SPECIMENOrdering Facility: [facility] Address: [address] [place] [address] Performed By: #### 2 4344-4 ####[facility] LABORATORYCLIA [id number] [address] [place] Methemoglobin (Bld) [Mass fraction] 1.3 % Normal 0.0-1.5 [facility] Comment on above: Order Comment: Speci men Type: VENOUS BLOOD SPECIMENOrdering Facility: [facility] Address: [address] [place] [address] Performed By: #### 2 4344-4 ####[facility] LABORATORYCLIA [id number] [address] O2 THERAPY NC = Nasal Cannula Normal [facility] Comment on above: Order Comment: Speci men Type: VENOUS BLOOD SPECIMENOrdering Facility: [facility] Address: [address] [place] [address] Performed By: #### 2 4344-4 ####[facility] LABORATORYCLIA [id number] [address] [place] Oxygen (BldV) [Partial pressure] 163 mm[Hg] High 35-45 [facility] Comment on above: Order Comment: Speci men Type: VENOUS BLOOD SPECIMENOrdering Facility: [facility] Address: [address] [address] Performed By: #### 2 4344-4 ####[facility] LABORATORYCLIA [id number] [address] Oxygen adjusted to patient's actual temperature (BldV) [Partial pressure] 157 mmHg High 35-45 [facility] Comment on above: Order Comment: Speci men Type: VENOUS BLOOD SPECIMENOrdering Facility: [facility] Address: [address] [address] Performed By: #### 2 4344-4 ####[facility] LABORATORYCLIA [id number] [address] Oxygen saturation in Venous blood 99 % High 60-85 [facility] Comment on above: Order Comment: Speci men Type: VENOUS BLOOD SPECIMENOrdering Facility: [facility] Address: [address] [place] [address] Performed By: #### 2 4344-4 ####[facility] LABORATORYCLIA [id number] [address] Oxyhemoglobin (BldV) [Mass fraction] 96 % High 60-85 [facility] Comment on above: Order Comment: Speci men Type: VENOUS BLOOD SPECIMENOrdering Facility: [facility] Address: [address] [place] [address] Performed By: #### 2 4344-4 ####[facility] LABORATORYCLIA [id number] [address] [place] pH (BldV) 7.28 [pH] Low 7.32-7.42 [facility] Comment on above: Order Comment: Speci men Type: VENOUS BLOOD SPECIMENOrdering Facility: [facility] Address: [address] [place] [address] Performed By: #### 2 4344-4 ####[facility] LABORATORYCLIA [id number] [address] STATES [facility] pH adjusted to patient's actual temperature (BldV) 7.30 Low 7.32-7.42 [facility] Comment on above: Order Comment: Speci men Type: VENOUS BLOOD SPECIMENOrdering Facility: [facility] Address: [address] [place] [address] Performed By: #### 2 4344-4 ####[facility] LABORATORYCLIA [id number] [address] [place] Potassium [Moles/Vol] 4.1 mmol/L Normal 3.5-5.0 [facility] Comment on above: Order Comment: Speci men Type: VENOUS BLOOD SPECIMENOrdering Facility: [facility] Address: [address] [place] [address] Performed By: #### 2 4344-4 ####[facility] LABORATORYCLIA [id number] [address] [place] Sodium [Moles/Vol] 140 mmol/L Normal 136-144 [facility] Comment on above: Order Comment: Speci men Type: VENOUS BLOOD SPECIMENOrdering Facility: [facility] Address: [address] [place] [address] Performed By: #### 2 4344-4 ####[facility] LABORATORYCLIA [id number] [address] [place] NURSING PROGon 02-12-2023 NURSING PROG Normal [facility] Renal function 2000 panelon 02-12-2023 Albumin [Mass/Vol] 3.3 g/dL Low 3.9-4.9 [facility] Comment on above: Order Comment: Speci men Type: BLOOD SPECIMENOrdering Facility: [facility] Address: [address] [place] [address] Performed By: #### 2 4362-6 ####[facility] LABORATORYCLIA [id number] [address] [place] Anion gap [Moles/Vol] 8 mmol/L Low 9-18 [facility] Comment on above: Order Comment: Speci men Type: BLOOD SPECIMENOrdering Facility: [facility] Address: [address] [address] Performed By: #### 2 4362-6 ####[facility] LABORATORYCLIA [id number] [address] [place] Calcium [Mass/Vol] 8.7 mg/dL Normal 8.5-10.2 [facility] Comment on above: Order Comment: Speci men Type: BLOOD SPECIMENOrdering Facility: [facility] Address: [address] [place] [address] Performed By: #### 2 4362-6 ####[facility] LABORATORYCLIA [id number] [address] [place] Chloride [Moles/Vol] 97 mmol/L Normal 97-105 [facility] Comment on above: Order Comment: Speci men Type: BLOOD SPECIMENOrdering Facility: [facility] Address: [address] [place] [address] Performed By: #### 2 4362-6 ####[facility] LABORATORYCLIA [id number] [address] [place] CO2 [Moles/Vol] 35 mmol/L High 22-30 [facility] Comment on above: Order Comment: Speci men Type: BLOOD SPECIMENOrdering Facility: [facility] Address: [address] [place] [address] Performed By: #### 2 4362-6 ####[facility] LABORATORYCLIA [id number] [address] STATES OF [facility] Creatinine [Mass/Vol] 1.54 mg/dL High 0.58-0.96 [facility] Comment on above: Order Comment: Speci men Type: BLOOD SPECIMENOrdering Facility: [facility] Address: [address] [place] [address] Performed By: #### 2 4362-6 ####[facility] LABORATORYCLIA [id number] [address] ESTIMATED GLOMERULAR FILTRATION RATE 37 mL/min/1.73m??? Low >=60 [facility] Comment on above: Order Comment: Speci men Type: BLOOD SPECIMENOrdering Facility: [facility] Address: [address] [place] [address] Result Comment: Petra mated Glomerular Filtration Rate (eGFR) is calculated using the 2020 CKD-EPI creatinine equation. This equation utilizes serum creatinine, sex, and age as parameters. The creatinine assay has traceable calibration to isotope dilution-mass spectrometry. Refer to KDIGO guidelines for clinical interpretation. In patients with unstable renal function, e.g. those with acute kidney injury, the eGFR may not accurately reflect actual GFR. Performed By: #### 2 4362-6 ####[facility] LABORATORYCLIA [id number] [place] [address] [place] Glucose [Mass/Vol] 235 mg/dL High 74-99 [facility] Comment on above: Order Comment: Luhi bozena Type: BLOOD SPECIMENOrdering Facility: [facility] Address: [address] [place] [address] Result Comment: The [place] [employer] (ADA) provides guidance for cutoff values for fasting glucose and random glucose. The ADA defines fasting as no caloric intake for at least 8 hours. Fasting plasma glucose results between 100 to 125 mg/dL indicate increased risk for diabetes (prediabetes).Fasting plasma glucose results greater than or equal to 126 mg/dL meet the criteria for diagnosis of diabetes. In the absence of unequivocal hyperglycemia, results should be confirmed by repeat testing. In a patient with classic symptoms of hyperglycemia or hyperglycemic crisis, random plasma glucose results greater than or equal to 200 mg/dL meet the criteria for diagnosis of diabetes.Reference: Standards of Medical Care in Diabetes 2016, [place] [employer]. Diabetes Care. 2016.39(Suppl 1). Performed By: #### 2 4362-6 ####[facility] LABORATORYCLIA [id number] [place] [address] [place] Phosphate [Mass/Vol] 3.6 mg/dL Normal 2.7-4.8 [facility] Comment on above: Order Comment: Luhi bozena Type: BLOOD SPECIMENOrdering Facility: [facility] Address: [address] [place] [address] Performed By: #### 2 4362-6 ####[facility] LABORATORYCLIA [id number] [place] [address] [place] Potassium [Moles/Vol] 4.5 mmol/L Normal 3.7-5.1 [facility] Comment on above: Order Comment: Speci men Type: BLOOD SPECIMENOrdering Facility: [facility] Address: [address] [place] [address] Performed By: #### 2 4362-6 ####[facility] LABORATORYCLIA [id number] [place] [address] [place] Sodium [Moles/Vol] 140 mmol/L Normal 136-144 [facility] Comment on above: Order Comment: Speci men Type: BLOOD SPECIMENOrdering Facility: [facility] Address: [address] [place] [address] Performed By: #### 2 4362-6 ####[facility] LABORATORYCLIA [id number] [place] [address] [place] Urea nitrogen [Mass/Vol] 26 mg/dL High 7-21 [facility] Comment on above: Order Comment: Speci men Type: BLOOD SPECIMENOrdering Facility: [facility] Address: [address] [place] [address] Performed By: #### 2 4362-6 ####[facility] LABORATORYCLIA [id number] [address] [place] THERAPY NTon 02-12-2023 THERAPY NT Normal [facility] THERAPY NT Normal [facility] XR CHEST 1V FRONTALon 2022 XR CHEST 1V FRONTAL Normal [facility] ALLIED HEALTHon 02-11-2023 ALLIED HEALTH Normal [facility] ALLIED HEALTH Normal [facility] CBC W Auto Differential pane l (Bld)on 02-11-2023 Basophils (Bld) [#/Vol] 0.05 10*3/uL Normal <0.11 [facility] Comment on above: Order Comment: Speci men Type: BLOOD SPECIMENOrdering Facility: [facility] Address: [address] [place] [address] Result Comment: Diff erential confirmed by visual scan of peripheral blood smear slide. Performed By: #### 5 7021-8 ####[facility] LABORATORYCLIA [id number] [address] [place] Basophils/100 WBC (Bld) 0.6 % Normal A [facility] Comment on above: Order Comment: Speci men Type: BLOOD SPECIMENOrdering Facility: [facility] Address: [address] [place] [address] Performed By: #### 5 7021-8 ####[facility] LABORATORYCLIA [id number] [address] [place] Differential cell count method Nom (Bld) Auto Normal [facility] Comment on above: Order Comment: Speci men Type: BLOOD SPECIMENOrdering Facility: [facility] Address: [address] [place] [address] Performed By: #### 5 7021-8 ####[facility] LABORATORYCLIA [id number] [address] [place] Eosinophils (Bld) [#/Vol] 0.62 10*3/uL High <0.46 [facility] Comment on above: Order Comment: Speci men Type: BLOOD SPECIMENOrdering Facility: [facility] Address: [address] [place] [address] Performed By: #### 5 7021-8 ####[facility] LABORATORYCLIA [id number] [address] Eosinophils/100 WBC (Bld) 7.8 % Normal [facility] Comment on above: Order Comment: Speci men Type: BLOOD SPECIMENOrdering Facility: [facility] Address: [address] [place] [address] Performed By: #### 5 7021-8 ####[facility] LABORATORYCLIA [id number] [address] [place] Erythrocyte distribution width (RBC) [Ratio] 15.9 % High 11.5-15.0 [facility] Comment on above: Order Comment: Speci men Type: BLOOD SPECIMENOrdering Facility: [facility] Address: [address] [place] [address] Performed By: #### 5 7021-8 ####[facility] LABORATORYCLIA [id number] [address] [place] Hematocrit (Bld) [Volume fraction] 29.6 % Low 36.0-46.0 [facility] Comment on above: Order Comment: Speci men Type: BLOOD SPECIMENOrdering Facility: [facility] Address: [address] [address] Performed By: #### 5 7021-8 ####[facility] LABORATORYCLIA [id number] [address] [place] Hemoglobin (Bld) [Mass/Vol] 8.4 g/dL Low 11.5-15.5 [facility] Comment on above: Order Comment: Speci men Type: BLOOD SPECIMENOrdering Facility: [facility] Address: [address] [place] [address] Performed By: #### 5 7021-8 ####[facility] LABORATORYCLIA [id number] [address] [place] Immature granulocytes (Bld) [#/Vol] 0.21 10*3/uL High <0.10 [facility] Comment on above: Order Comment: Speci men Type: BLOOD SPECIMENOrdering Facility: [facility] Address: [address] [place] [address] Performed By: #### 5 7021-8 ####[facility] LABORATORYCLIA [id number] [address] [place] Immature granulocytes/100 WBC (Bld) 2.6 % Normal [facility] Comment on above: Order Comment: Speci men Type: BLOOD SPECIMENOrdering Facility: [facility] Address: [address] [place] [address] Performed By: #### 5 7021-8 ####[facility] LABORATORYCLIA [id number] [place] [address] [place] Lymphocytes (Bld) [#/Vol] 1.30 10*3/uL Normal 1.00-4.00 [facility] Comment on above: Order Comment: Speci men Type: BLOOD SPECIMENOrdering Facility: [facility] Address: [address] [place] [address] Performed By: #### 5 7021-8 ####[facility] LABORATORYCLIA [id number] [address] [place] Lymphocytes/100 WBC (Bld) 16.3 % Normal [facility] Comment on above: Order Comment: Speci men Type: BLOOD SPECIMENOrdering Facility: [facility] Address: [address] [address] Performed By: #### 5 7021-8 ####[facility] LABORATORYCLIA [id number] [address] MCH (RBC) [Entitic mass] 27.7 pg Normal 26.0-34.0 [facility] Comment on above: Order Comment: Speci men Type: BLOOD SPECIMENOrdering Facility: [facility] Address: [address] [place] [address] Performed By: #### 5 7021-8 ####[facility] LABORATORYCLIA [id number] [address] MCHC (RBC) [Mass/Vol] 28.4 g/dL Low 30.5-36.0 [facility] Comment on above: Order Comment: Speci men Type: BLOOD SPECIMENOrdering Facility: [facility] Address: [address] [place] [address] Performed By: #### 5 7021-8 ####[facility] LABORATORYCLIA [id number] [address] MCV (RBC) [Entitic vol] 97.7 fL Normal 80.0-100.0 A [facility] Comment on above: Order Comment: Speci men Type: BLOOD SPECIMENOrdering Facility: [facility] Address: [address] [place] [address] Performed By: #### 5 7021-8 ####[facility] LABORATORYCLIA [id number] [address] Monocytes (Bld) [#/Vol] 0.78 10*3/uL Normal <0.87 [facility] Comment on above: Order Comment: Speci men Type: BLOOD SPECIMENOrdering Facility: [facility] Address: [address] [place] [address] Performed By: #### 5 7021-8 ####[facility] LABORATORYCLIA [id number] [place] [address] [place] Monocytes/100 WBC (Bld) 9.8 % Normal A [facility] Comment on above: Order Comment: Speci men Type: BLOOD SPECIMENOrdering Facility: [facility] Address: [address] [place] [address] Performed By: #### 5 7021-8 ####[facility] LABORATORYCLIA [id number] [place] [address] [place] Neutrophils (Bld) [#/Vol] 5.02 10*3/uL Normal 1.45-7.50 [facility] Comment on above: Order Comment: Speci men Type: BLOOD SPECIMENOrdering Facility: [facility] Address: [address] [place] [address] Performed By: #### 5 7021-8 ####[facility] LABORATORYCLIA [id number] [address] [place] Neutrophils/100 WBC (Bld) 62.9 % Normal [facility] Comment on above: Order Comment: Speci men Type: BLOOD SPECIMENOrdering Facility: [facility] Address: [address] [place] [address] Performed By: #### 5 7021-8 ####[facility] LABORATORYCLIA [id number] [place] [address] [place] Nucleated RBC (Bld) [#/Vol] 10*3/uL Normal <0.01 [facility] Comment on above: Order Comment: Speci men Type: BLOOD SPECIMENOrdering Facility: [facility] Address: [address] [place] [address] Performed By: #### 5 7021-8 ####[facility] LABORATORYCLIA [id number] [address] [place] Nucleated RBC/100 WBC (Bld) [Ratio] 0.0 /100 WBC Normal [facility] Comment on above: Order Comment: Speci men Type: BLOOD SPECIMENOrdering Facility: [facility] Address: [address] [place] [address] Performed By: #### 5 7021-8 ####[facility] LABORATORYCLIA [id number] [address] [place] Platelet mean volume (Bld) [Entitic vol] 8.7 fL Low 9.0-12.7 [facility] Comment on above: Order Comment: Speci men Type: BLOOD SPECIMENOrdering Facility: [facility] Address: [address] [place] [address] Performed By: #### 5 7021-8 ####[facility] LABORATORYCLIA [id number] [place] [address] [place] Platelets (Bld) [#/Vol] 304 10*3/uL Normal 150-400 [facility] Comment on above: Order Comment: Speci men Type: BLOOD SPECIMENOrdering Facility: [facility] Address: [address] [place] [address] Performed By: #### 5 7021-8 ####[facility] LABORATORYCLIA [id number] [place] [address] [place] RBC (Bld) [#/Vol] 3.03 10*6/uL Low 3.90-5.20 [facility] Comment on above: Order Comment: Speci men Type: BLOOD SPECIMENOrdering Facility: [facility] Address: [address] [place] [address] Performed By: #### 5 7021-8 ####[facility] LABORATORYCLIA [id number] [place] [address] [place] WBC (Bld) [#/Vol] 7.98 10*3/uL Normal 3.70-11.00 [facility] Comment on above: Order Comment: Speci men Type: BLOOD SPECIMENOrdering Facility: [facility] Address: [address] [place] [address] Performed By: #### 5 7021-8 ####[facility] LABORATORYCLIA [id number] [address] [place] CT BRAIN WO IVCONon 02-12-[address] BRAIN WO IVCON Normal [facility] Comprehensive metabolic 2000 panelon 02-11-2023 Albumin [Mass/Vol] 3.1 g/dL Low 3.9-4.9 [facility] Comment on above: Order Comment: Speci men Type: BLOOD SPECIMENOrdering Facility: [facility] Address: [address] [place] [address] Performed By: #### 2 4323-8, 3040-3 ####[facility] LABORATORYCLIA [id number] [address] STATES OF [facility] ALP [Catalytic activity/Vol] 59 U/L Normal 34-123 [facility] Comment on above: Order Comment: Speci men Type: BLOOD SPECIMENOrdering Facility: [facility] Address: [address] [place] [address] Performed By: #### 2 4323-8, 0-3 ####[facility] LABORATORYCLIA [id number] [address] [place] OF [facility] ALT With P-5'-P [Catalytic activity/Vol] 8 U/L Normal 7-38 [facility] Comment on above: Order Comment: Speci men Type: BLOOD SPECIMENOrdering Facility: [facility] Address: [address] [place] [address] Performed By: #### 2 4323-8, 3040-3 ####[facility] LABORATORYCLIA [id number] [address] STATES [facility] Anion gap [Moles/Vol] 10 mmol/L Normal 9-18 [facility] Comment on above: Order Comment: Speci men Type: BLOOD SPECIMENOrdering Facility: [facility] Address: [address] [place] [address] Performed By: #### 2 4323-8, 3040-3 ####[facility] LABORATORYCLIA [id number] [address] OF [facility] AST With P-5'-P [Catalytic activity/Vol] 14 U/L Normal 13-35 [facility] Comment on above: Order Comment: Speci men Type: BLOOD SPECIMENOrdering Facility: [facility] Address: [address] [address] Performed By: #### 2 4323-8, 0-3 ####[facility] LABORATORYCLIA [id number] [place] [address] [place] Bilirubin [Mass/Vol] 0.2 mg/dL Normal 0.2-1.3 [facility] Comment on above: Order Comment: Speci men Type: BLOOD SPECIMENOrdering Facility: [facility] Address: [address] [place] [address] Performed By: #### 2 4323-8, 3039-3 ####[facility] LABORATORYCLIA [id number] [place] [address] [place] Calcium [Mass/Vol] 8.3 mg/dL Low 8.5-10.2 [facility] Comment on above: Order Comment: Speci men Type: BLOOD SPECIMENOrdering Facility: [facility] Address: [address] [place] [address] Performed By: #### 2 4323-8, 3039-3 ####[facility] LABORATORYCLIA [id number] [place] [address] [place] Chloride [Moles/Vol] 97 mmol/L Normal 97-105 [facility] Comment on above: Order Comment: Speci men Type: BLOOD SPECIMENOrdering Facility: [facility] Address: [address] [place] [address] Performed By: #### 2 4323-8, 3039-3 ####[facility]ORATORYCLIA [id number] [place] [address] [place] CO2 [Moles/Vol] 33 mmol/L High 22-30 [facility] Comment on above: Order Comment: Speci men Type: BLOOD SPECIMENOrdering Facility: [facility] Address: [address] [place] [address] Performed By: #### 2 4323-8, 0-3 ####[facility]ORATORYCLIA [id number] [place] [address] [place] Creatinine [Mass/Vol] 1.51 mg/dL High 0.58-0.96 [facility] Comment on above: Order Comment: Scott seals Type: BLOOD SPECIMENOrdering Facility: [facility] Address: [address] [place] [id number] Performed By: #### 2 4323-8, 3040-3 ####[facility] LABORATORYCLIA [id number] [place] [id number] [facility] ESTIMATED GLOMERULAR FILTRATION RATE 38 mL/min/1.73m??? Low >=60 [facility] Comment on above: Order Comment: Scott seals Type: BLOOD SPECIMENOrdering Facility: [facility] Address: [address] [place] [address] Result Comment: Petra mated Glomerular Filtration Rate (eGFR) is calculated using the 2020 CKD-EPI creatinine equation. This equation utilizes serum creatinine, sex, and age as parameters. The creatinine assay has traceable calibration to isotope dilution-mass spectrometry. Refer to KDIGO guidelines for clinical interpretation. In patients with unstable renal function, e.g. those with acute kidney injury, the eGFR may not accurately reflect actual GFR. Performed By: #### 2 4323-8, 3040-3 ####[facility] LABORATORYCLIA [id number] [place] [id number] [place] Glucose [Mass/Vol] 206 mg/dL High 74-99 [facility] Comment on above: Order Comment: Scott bozena Type: BLOOD SPECIMENOrdering Facility: [facility] Address: [address] [place] [address] Result Comment: The [place] Diabetes Association (ADA) provides guidance for cutoff values for fasting glucose and random glucose. The ADA defines fasting as no caloric intake for at least 8 hours. Fasting plasma glucose results between 100 to 125 mg/dL indicate increased risk for diabetes (prediabetes).Fasting plasma glucose results greater than or equal to 126 mg/dL meet the criteria for diagnosis of diabetes. In the absence of unequivocal hyperglycemia, results should be confirmed by repeat testing. In a patient with classic symptoms of hyperglycemia or hyperglycemic crisis, random plasma glucose results greater than or equal to 200 mg/dL meet the criteria for diagnosis of diabetes.Reference: Standards of Medical Care in Diabetes 2016, [place] [employer]. Diabetes Care. 2016.39(Suppl 1). Performed By: #### 2 4323-8, 0-3 ####[facility] LABORATORYCLIA [id number] [address] STATES OF [facility] Potassium [Moles/Vol] 4.1 mmol/L Normal 3.7-5.1 [facility] Comment on above: Order Comment: Speci men Type: BLOOD SPECIMENOrdering Facility: [facility] Address: [address] [place] [address] Performed By: #### 2 4323-8, 0-3 ####[facility] LABORATORYCLIA [id number] [address] Protein [Mass/Vol] 5.3 g/dL Low 6.3-8.0 [facility] Comment on above: Order Comment: Speci men Type: BLOOD SPECIMENOrdering Facility: [facility] Address: [address] [place] [address] Performed By: #### 2 4323-8, 0-3 ####[facility] LABORATORYCLIA [id number] [address] Sodium [Moles/Vol] 140 mmol/L Normal 136-144 [facility] Comment on above: Order Comment: Speci men Type: BLOOD SPECIMENOrdering Facility: [facility] Address: [address] [place] [address] Performed By: #### 2 4323-8, 0-3 ####[facility] LABORATORYCLIA [id number] [address] STATES OF [facility] Urea nitrogen [Mass/Vol] 28 mg/dL High 7-21 [facility] Comment on above: Order Comment: Speci men Type: BLOOD SPECIMENOrdering Facility: [facility] Address: [address] [place] [address] Performed By: #### 2 4323-8, 0-3 ####[facility] LABORATORYCLIA [id number] [address] STATES OF [facility] ECG COMPLETEon 02-11-2023 ECG COMPLETE Normal [facility] ED NOTEon 02-11-2023 ED NOTE Normal [facility] ED NOTE HNO ID: [id number] Author: Kevin Farah RN Service: Emergency Medicine Author Type: Registered Nurse Type: ED Notes Filed: 02/11/2023 5:17 PM Note Text: External urine collection placed Normal [facility] ED NOTE HNO ID: [id number] Author: Kevin Farah RN Service: Emergency Medicine Author Type: Registered Nurse Type: ED Notes Filed: 02/11/2023 1:42 PM Note Text: Patient arrives via ems from f with c/o hallucinations. No distress noted. Normal [facility] ED NOTE Normal [facility] ED PROV NOTEon 02-11-2023 ED PROV NOTE Normal [facility] HIGH SENSITIVITY TROPONIN T (INITIAL)on 02-11-2023 HIGH SENSITIVITY MARIE 95 ng/L High <12 [facility] Comment on above: Order Comment: Scott seals Type: BLOOD SPECIMENOrdering Facility: [facility] Address: [address] [place] [address] Result Comment: When assessing risk for acute coronary syndromes: In patients undergoing blood draw greater than or equal to 2 hours from symptom onset, with history of very low to moderate risk and non-ischemic ECG, an initial hs-Troponin T less than 12 ng/L AND a 1 hour delta hs-Troponin T less than 3 ng/L should be considered very low risk for 30 day MACE. Performed By: #### L [id number] ####[facility] LABORATORYCLIA [id number] [address] HIGH SENSITIVITY TROPONIN T (SECOND)on 02-11-2023 HIGH SENSITIVITY MARIE 84 ng/L High <12 [facility] Comment on above: Order Comment: Scott seals Type: BLOOD SPECIMENOrdering Facility: [facility] Address: [address] [place] [address] Result Comment: When assessing risk for acute coronary syndromes: In patients undergoing blood draw greater than or equal to 2 hours from symptom onset, with history of very low to moderate risk and non-ischemic ECG, an initial hs-Troponin T less than 12 ng/L AND a 1 hour delta hs-Troponin T less than 3 ng/L should be considered very low risk for 30 day MACE. Performed By: #### L [id number] ####[facility]ITALCLIA [id number] [address] HIGH SENSITIVITY TROPONIN T (THIRD) 3 HRS AFTER INITIALon 02-11-2023 HIGH SENSITIVITY MARIE 77 ng/L High <12 [facility] Comment on above: Order Comment: Speci men Type: BLOOD SPECIMENOrdering Facility: [facility] Address: [address] [place] [address] Result Comment: When assessing risk for acute coronary syndromes: In patients undergoing blood draw greater than or equal to 2 hours from symptom onset, with history of very low to moderate risk and non-ischemic ECG, an initial hs-Troponin T less than 12 ng/L AND a 1 hour delta hs-Troponin T less than 3 ng/L should be considered very low risk for 30 day MACE. Performed By: #### L [id number] ####[facility] HOSPITALIA [id number] [address] HISTORY PHYSICALon 3 HISTORY PHYSICAL Normal [facility] Lipase SerPl-cCncon 02-12-20 23 Lipase [Catalytic activity/Vol] 25 U/L Normal 16-61 [facility] Comment on above: Order Comment: Speci men Type: BLOOD SPECIMENOrdering Facility: [facility] Address: [address] [place] [address] Performed By: #### 2 4323-8, 3040-3 ####[facility]PITALCLIA [id number] [address] OF [place] SARS-CoV-2 RNA Resp Ql IGGY+p robeon 02-11-2023 SARS-CoV-2 (COVID-19) RNA IGGY+probe Ql (Resp) COVID 19 RESULT: Not detected The method used is RT-PCR or an equivalent NAAT method. Reference Range(the expected result in uninfected individuals): Not detected Normal [facility] Comment on above: Performed By: #### 9 4500-6 ####[facility]ITALCLIA [id number] [address] [place] Urinalysis complete panel (U )on 02-11-2023 Bilirubin Ql (U) Negative Normal Negative [facility] Comment on above: Order Comment: Speci men Type: URINE SPECIMENOrdering Facility: [facility] Address: [address] [place] [address] Performed By: #### 2 4356-8 ####[facility] LABORATORYCLIA [id number] [address] [place] Clarity (Unsp spec) Clear Normal Clear [facility] Comment on above: Order Comment: Speci men Type: URINE SPECIMENOrdering Facility: [facility] Address: [address] [place] [address] Performed By: #### 2 4356-8 ####[facility] LABORATORYCLIA [id number] [address] Color (U) Light Yellow Normal yellow [facility] Comment on above: Order Comment: Speci men Type: URINE SPECIMENOrdering Facility: [facility] Address: [address] [place] [address] Performed By: #### 2 4356-8 ####[facility] LABORATORYCLIA [id number] [address] Epithelial cells LM.HPF (Urine sed) [#/Area] Few Normal [facility] Comment on above: Order Comment: Speci men Type: URINE SPECIMENOrdering Facility: [facility] Address: [address] [place] [address] Performed By: #### 2 4356-8 ####[facility] LABORATORYCLIA [id number] [address] OF [place] Glucose Test strip (U) [Mass/Vol] Negative Normal Trace, Negative [facility] Comment on above: Order Comment: Speci men Type: URINE SPECIMENOrdering Facility: [facility] Address: [address] [place] [address] Performed By: #### 2 4356-8 ####[facility]ATORYCLIA [id number] [address] OF [place] Hemoglobin Ql (U) Negative Normal Negative, Trace [facility] Comment on above: Order Comment: Speci men Type: URINE SPECIMENOrdering Facility: [facility] Address: [address] [place] [address] Performed By: #### 2 4356-8 ####[facility] LABORATORYCLIA [id number] [address] OF [facility] Hyaline casts (Urine sed) [#/Area] 1-3 /LPF Abnormal 0 /LPF [facility] Comment on above: Order Comment: Speci men Type: URINE SPECIMENOrdering Facility: [facility] Address: [address] [place] [address] Performed By: #### 2 4356-8 ####[facility] LABORATORYCLIA [id number] [address] Ketones Ql (U) Negative Normal Negative, Trace [facility] Comment on above: Order Comment: Speci men Type: URINE SPECIMENOrdering Facility: [facility] Address: [address] [place] [address] Performed By: #### 2 4356-8 ####[facility] LABORATORYCLIA [id number] [address] Leukocyte esterase Test strip Ql (U) 250 Ha/uL Abnormal Negative, 25 Ha/uL [facility] Comment on above: Order Comment: Speci men Type: URINE SPECIMENOrdering Facility: [facility] Address: [address] [place] [address] Performed By: #### 2 4356-8 ####[facility] LABORATORYCLIA [id number] [address] STATES OF [facility] Nitrite Ql (U) Negative Normal Negative [facility] Comment on above: Order Comment: Speci men Type: URINE SPECIMENOrdering Facility: [facility] Address: [address] [place] [address] Performed By: #### 2 4356-8 ####[facility] LABORATORYCLIA [id number] [address] [place] pH (U) 6.0 [pH] Normal 5.0-8.0 [facility] Comment on above: Order Comment: Speci men Type: URINE SPECIMENOrdering Facility: [facility] Address: [address] [place] [address] Performed By: #### 2 4356-8 ####[facility] LABORATORYCLIA [id number] [address] [place] Protein (U) [Mass/Vol] Negative Normal Trace , Negative [facility] Comment on above: Order Comment: Speci men Type: URINE SPECIMENOrdering Facility: [facility] Address: [address] [place] [address] Performed By: #### 2 4356-8 ####[facility] LABORATORYCLIA [id number] [address] RBC LM.HPF (Urine sed) [#/Area] 0-3 /HPF Normal 0-3 /HPF [facility] Comment on above: Order Comment: Speci men Type: URINE SPECIMENOrdering Facility: [facility] Address: [address] [place] [address] Performed By: #### 2 4356-8 ####[facility] LABORATORYCLIA [id number] [address] [place] Specific gravity (U) [Rel density] 1.012 Normal 1.005-1.030 [facility] Comment on above: Order Comment: Speci men Type: URINE SPECIMENOrdering Facility: [facility] Address: [address] [place] [address] Performed By: #### 2 4356-8 ####[facility] LABORATORYCLIA [id number] [address] Urobilinogen Ql (U) Normal Normal Negative [facility] Comment on above: Order Comment: Speci men Type: URINE SPECIMENOrdering Facility: [facility] Address: [address] [place] [address] Performed By: #### 2 4356-8 ####[facility] LABORATORYCLIA [id number] [place] [id number] [facility] WBC LM.HPF (Urine sed) [#/Area] 0-5 /HPF Normal 0-5 /HPF [facility] Comment on above: Order Comment: Speci men Type: URINE SPECIMENOrdering Facility: [facility] Address: [place] [address] Performed By: #### 2 4356-8 ####[facility] LABORATORYCLIA [id number] [place] [address] [place] XR CHEST 1V FRONTALon 2022 XR CHEST 1V FRONTAL Normal [facility] CNPTOUTREACHon 02-06-2023 CNPTOUTREACH Normal [facility] Basophil percentageOrdered B y: Lucy Quick on 02-02-2023 Chloride [Moles/Vol] 106 mmol/L 98-107 [facility] Glucose [Mass/Vol] 196 mg/dL 74-106 [facility] Comment on above: Fasting Glucose resu lt greater than or equal to 126 mg/dL suggests DIABETES MELLITUS per A.D.A. criteria. Potassium [Moles/Vol] 4.6 mmol/L 3.5-5.1 [facility] Sodium [Moles/Vol] 139 mmol/L 136-145 [facility] WBC (Bld) [#/Vol] 7.4 10*3/uL 4.4-11.0 [facility] Blood erythrocytes count (nu mber/volume)Ordered By: Lucy Quick on 02-02-2023 RBC (Bld) [#/Vol] 2.80 10*6/uL 4.2-5.4 [facility] Blood hemoglobin measurement (mass/volume)Ordered By: Lucy Quick on 02-02-2023 Hemoglobin (Bld) [Mass/Vol] 10.2 g/dL 12.0-15.0 [facility] Blood platelet mean volumeOr dered By: Lucy Quick on 02-02-2023 Platelet mean volume (Bld) [Entitic vol] 11.3 fL 6.2-12.0 [facility] Determination of erythrocyte mean corpuscular volume (MCV)Ordered By: Lucy Quick on 02-02-2023 MCV (RBC) [Entitic vol] 97.5 fL 81-99 [facility] Hematocrit Auto (Bld) [Volum e fraction]Ordered By: Lucy Quick on 02-02-2023 Hematocrit (Bld) [Volume fraction] 27.3 % 37-47 [facility] Laboratory - Chemistry and C hemistry - challengeOrdered By: Lucy Quick on 02-02-2023 CO2 [Moles/Vol] 28.0 mmol/L 21.0-32.0 [facility] Urea nitrogen/Creatinine [Mass ratio] 27.7 mg/mg 10-20 [facility] Laboratory - Hematology and Cell countsOrdered By: Lucy Quick on 02-02-2023 Erythrocyte distribution width (RBC) [Entitic vol] 53.1 fL 35.1-43.9 [facility] Erythrocyte distribution width (RBC) [Ratio] 16.4 % 11.6-14.6 [facility] MCH (RBC) [Entitic mass] 36.4 pg 27.0-32.0 [facility] MCHC Auto (RBC) [Mass/Vol]Or dered By: Lucy Quick on 02-02-2023 MCHC (RBC) [Mass/Vol] 37.4 g/dL 32-36 [facility] No Panel InformationOrdered By: Lucy Quick on 02-02-2023 Estimated GFR (MDRD) Amer 59 mL/min >60 [facility] Comment on above: GFR Calc Estimated GFR (MDRD) Non-Af Amer 48 mL/min >60 [facility] Comment on above: Non- GFR Calc Platelets bldOrdered By: Josee Quick on 02-02-2023 Platelets (Bld) [#/Vol] 165 10*3/uL 150-450 [facility] Serum or plasma calcium catracho urement (mass/volume)Ordered By: Lucy Quick on 02-02-2023 Calcium [Mass/Vol] 8.6 mg/dL 8.5-10.1 [facility] Serum or plasma creatinine m easurement (mass/volume)Ordered By: Lucy Quick on 02-02-2023 Creatinine [Mass/Vol] 1.19 mg/dL 0.55-1.02 [facility] Comment on above: The validity of the calculated GFR & GFRAA in patients over 70 years has not been determined. Clinical correlation is essential. Serum or plasma urea nitroge n measurement (mass/volume)Ordered By: Lucy Quick on 02-02-2023 Urea nitrogen [Mass/Vol] 33 mg/dL 7-18 [facility] Thin prep Papanicolaou smear with manual screeningOrdered By: Lucy Quick on 02-02-2023 Thin prep Papanicolaou smear with manual screening 5 -15 [facility] CNPTOUTREACHon 01-29-2023 CNPTOUTREACH Normal [facility] ALLIED HEALTHon 01-28-2023 ALLIED HEALTH Normal [facility] CASE MANAGEMon 01-28-2023 CASE MANAGEM Normal [facility] CBC panel Auto (Bld)on 01-28 Erythrocyte distribution width (RBC) [Ratio] 16.4 % High 11.5-15.0 [facility] Comment on above: Order Comment: Speci men Type: BLOOD SPECIMENOrdering Facility: [facility] Address: [address] [place] [address] Performed By: #### 5 8410-2 ####[facility] LABORATORYCLIA [id number] [address] [place] Hematocrit (Bld) [Volume fraction] 29.2 % Low 36.0-46.0 [facility] Comment on above: Order Comment: Speci men Type: BLOOD SPECIMENOrdering Facility: [facility] Address: [address] [place] [address] Performed By: #### 5 8410-2 ####[facility] LABORATORYCLIA [id number] [place] [address] [place] Hemoglobin (Bld) [Mass/Vol] 8.6 g/dL Low 11.5-15.5 [facility] Comment on above: Order Comment: Speci men Type: BLOOD SPECIMENOrdering Facility: [facility] Address: [address] [place] [address] Performed By: #### 5 8410-2 ####[facility] LABORATORYCLIA [id number] [address] MCH (RBC) [Entitic mass] 28.0 pg Normal 26.0-34.0 [facility] Comment on above: Order Comment: Speci men Type: BLOOD SPECIMENOrdering Facility: [facility] Address: [address] [place] [address] Performed By: #### 5 8410-2 ####[facility] LABORATORYCLIA [id number] [address] MCHC (RBC) [Mass/Vol] 29.5 g/dL Low 30.5-36.0 [facility] Comment on above: Order Comment: Speci men Type: BLOOD SPECIMENOrdering Facility: [facility] Address: [address] [place] [address] Performed By: #### 5 8410-2 ####[facility] LABORATORYCLIA [id number] [address] MCV (RBC) [Entitic vol] 95.1 fL Normal 80.0-100.0 [facility] Comment on above: Order Comment: Speci men Type: BLOOD SPECIMENOrdering Facility: [facility] Address: [address] [place] [address] Performed By: #### 5 8410-2 ####[facility] LABORATORYCLIA [id number] [address] Nucleated RBC (Bld) [#/Vol] 0.02 10*3/uL High <0.01 [facility] Comment on above: Order Comment: Speci men Type: BLOOD SPECIMENOrdering Facility: [facility] Address: [address] [place] [address] Performed By: #### 5 8410-2 ####[facility] LABORATORYCLIA [id number] [address] Platelet mean volume (Bld) [Entitic vol] 8.3 fL Low 9.0-12.7 [facility] Comment on above: Order Comment: Speci men Type: BLOOD SPECIMENOrdering Facility: [facility] Address: [address] [place] [address] Performed By: #### 5 8410-2 ####[facility] LABORATORYCLIA [id number] [address] [place] Platelets (Bld) [#/Vol] 340 10*3/uL Normal 150-400 [facility] Comment on above: Order Comment: Speci men Type: BLOOD SPECIMENOrdering Facility: [facility] Address: [address] [place] [address] Performed By: #### 5 8410-2 ####[facility] LABORATORYCLIA [id number] [address] STATES OF [facility] RBC (Bld) [#/Vol] 3.07 10*6/uL Low 3.90-5.20 [facility] Comment on above: Order Comment: Speci men Type: BLOOD SPECIMENOrdering Facility: [facility] Address: [address] [place] [address] Performed By: #### 5 8410-2 ####[facility] LABORATORYCLIA [id number] [address] WBC (Bld) [#/Vol] 7.88 10*3/uL Normal 3.70-11.00 [facility] Comment on above: Order Comment: Speci men Type: BLOOD SPECIMENOrdering Facility: [facility] Address: [address] [place] [address] Performed By: #### 5 8410-2 ####[facility] LABORATORYCLIA [id number] [address] Comprehensive metabolic 2000 panelon 01-28-2023 Albumin [Mass/Vol] 3.1 g/dL Low 3.9-4.9 [facility] Comment on above: Order Comment: Speci men Type: BLOOD SPECIMENOrdering Facility: [facility] Address: [address] [place] [address] Performed By: #### 2 4323-8 ####[facility] LABORATORYCLIA [id number] [address] STATES [facility] ALP [Catalytic activity/Vol] 59 U/L Normal 34-123 [facility] Comment on above: Order Comment: Speci men Type: BLOOD SPECIMENOrdering Facility: [facility] Address: [address] [place] [address] Performed By: #### 2 4323-8 ####[facility] LABORATORYCLIA [id number] [address] [place] ALT With P-5'-P [Catalytic activity/Vol] 11 U/L Normal 7-38 [facility] Comment on above: Order Comment: Speci men Type: BLOOD SPECIMENOrdering Facility: [facility] Address: [address] [place] [address] Performed By: #### 2 4323-8 ####[facility] LABORATORYCLIA [id number] [address] Anion gap [Moles/Vol] 10 mmol/L Normal 9-18 [facility] Comment on above: Order Comment: Speci men Type: BLOOD SPECIMENOrdering Facility: [facility] Address: [address] [place] [address] Performed By: #### 2 4323-8 ####[facility] LABORATORYCLIA [id number] [address] AST With P-5'-P [Catalytic activity/Vol] 15 U/L Normal 13-35 [facility] Comment on above: Order Comment: Speci men Type: BLOOD SPECIMENOrdering Facility: [facility] Address: [address] [place] [address] Performed By: #### 2 4323-8 ####[facility] LABORATORYCLIA [id number] [address] [place] Bilirubin [Mass/Vol] 0.2 mg/dL Normal 0.2-1.3 [facility] Comment on above: Order Comment: Speci men Type: BLOOD SPECIMENOrdering Facility: [facility] Address: [address] [place] [address] Performed By: #### 2 4323-8 ####[facility] LABORATORYCLIA [id number] [address] [place] Calcium [Mass/Vol] 8.6 mg/dL Normal 8.5-10.2 [facility] Comment on above: Order Comment: Speci men Type: BLOOD SPECIMENOrdering Facility: [facility] Address: [address] [place] [address] Performed By: #### 2 4323-8 ####[facility] LABORATORYCLIA [id number] [address] [place] Chloride [Moles/Vol] 100 mmol/L Normal 97-105 [facility] Comment on above: Order Comment: Speci men Type: BLOOD SPECIMENOrdering Facility: [facility] Address: [address] [place] [address] Performed By: #### 2 4323-8 ####[facility] LABORATORYCLIA [id number] [address] [place] CO2 [Moles/Vol] 29 mmol/L Normal 22-30 [facility] Comment on above: Order Comment: Speci men Type: BLOOD SPECIMENOrdering Facility: [facility] Address: [address] [place] [address] Performed By: #### 2 4323-8 ####[facility] LABORATORYCLIA [id number] [address] [place] Creatinine [Mass/Vol] 1.44 mg/dL High 0.58-0.96 [facility] Comment on above: Order Comment: Speci men Type: BLOOD SPECIMENOrdering Facility: [facility] Address: [address] [place] [address] Performed By: #### 2 4323-8 ####[facility] LABORATORYCLIA [id number] [address] ESTIMATED GLOMERULAR FILTRATION RATE 40 mL/min/1.73m??? Low >=60 [facility] Comment on above: Order Comment: Scott seals Type: BLOOD SPECIMENOrdering Facility: [facility] Address: [address] [place] [address] Result Comment: Petra mated Glomerular Filtration Rate (eGFR) is calculated using the 2020 CKD-EPI creatinine equation. This equation utilizes serum creatinine, sex, and age as parameters. The creatinine assay has traceable calibration to isotope dilution-mass spectrometry. Refer to KDIGO guidelines for clinical interpretation. In patients with unstable renal function, e.g. those with acute kidney injury, the eGFR may not accurately reflect actual GFR. Performed By: #### 2 4323-8 ####[facility] LABORATORYCLIA [id number] [place] [address] [place] Glucose [Mass/Vol] 220 mg/dL High 74-99 [facility] Comment on above: Order Comment: Scott seals Type: BLOOD SPECIMENOrdering Facility: [facility] Address: [address] [place] [address] Result Comment: The [place] Diabetes Association (ADA) provides guidance for cutoff values for fasting glucose and random glucose. The ADA defines fasting as no caloric intake for at least 8 hours. Fasting plasma glucose results between 100 to 125 mg/dL indicate increased risk for diabetes (prediabetes).Fasting plasma glucose results greater than or equal to 126 mg/dL meet the criteria for diagnosis of diabetes. In the absence of unequivocal hyperglycemia, results should be confirmed by repeat testing. In a patient with classic symptoms of hyperglycemia or hyperglycemic crisis, random plasma glucose results greater than or equal to 200 mg/dL meet the criteria for diagnosis of diabetes.Reference: Standards of Medical Care in Diabetes 2016, [place] [employer]. Diabetes Care. 2016.39(Suppl 1). Performed By: #### 2 4323-8 ####[facility] LABORATORYCLIA [id number] [place] [address] [place] Potassium [Moles/Vol] 5.1 mmol/L Normal 3.7-5.1 [facility] Comment on above: Order Comment: Scott seals Type: BLOOD SPECIMENOrdering Facility: [facility] Address: [address] [place] [address] Performed By: #### 2 4323-8 ####[facility] LABORATORYCLIA [id number] [address] STATES [facility] Protein [Mass/Vol] 5.4 g/dL Low 6.3-8.0 [facility] Comment on above: Order Comment: Speci men Type: BLOOD SPECIMENOrdering Facility: [facility] Address: [address] [place] [address] Performed By: #### 2 4323-8 ####[facility] LABORATORYCLIA [id number] [address] [place] Sodium [Moles/Vol] 139 mmol/L Normal 136-144 [facility] Comment on above: Order Comment: Speci men Type: BLOOD SPECIMENOrdering Facility: [facility] Address: [address] [place] [address] Performed By: #### 2 4323-8 ####[facility] LABORATORYCLIA [id number] [address] STATES [facility] Urea nitrogen [Mass/Vol] 33 mg/dL High 7-21 [facility] Comment on above: Order Comment: Speci men Type: BLOOD SPECIMENOrdering Facility: [facility] Address: [address] [place] [address] Performed By: #### 2 4323-8 ####[facility] LABORATORYCLIA [id number] [address] [place] ECG COMPLETEon 01-28-2023 ECG COMPLETE Normal [facility] ED NOTEon 01-28-2023 ED NOTE HNO ID: [id number] Author: Sandy Steve RN Service: Emergency Medicine Author Type: Registered Nurse Type: ED Notes Filed: 01/28/2023 2:30 PM Note Text: 4Ride ETA 1630 Normal [facility] ED NOTE HNO ID: [id number] Author: Sandy Steve RN Service: Emergency Medicine Author Type: Registered Nurse Type: ED Notes Filed: 01/28/2023 11:53 AM Note Text: Pt stated not wanting to be strait cathed. Dr Díaz notified. Normal [facility] ED NOTE Normal [facility] ED NOTE HNO ID: [id number] Author: [place] RN Service: ? Author Type: Registered Nurse Type: ED Notes Filed: 01/28/2023 10:06 AM Note Text: Bed: 25-ED Expected date: 01/28/23 Expected time: Means of arrival: [facility] ED PROV NOTEon 01-28-2023 ED PROV NOTE Normal [facility] HIGH SENSITIVITY TROPONIN T (INITIAL)on 01-28-2023 HIGH SENSITIVITY MARIE 91 ng/L High <12 [facility] Comment on above: Order Comment: Scott seals Type: BLOOD SPECIMENOrdering Facility: [facility] Address: [address] [place] [address] Result Comment: When assessing risk for acute coronary syndromes: In patients undergoing blood draw greater than or equal to 2 hours from symptom onset, with history of very low to moderate risk and non-ischemic ECG, an initial hs-Troponin T less than 12 ng/L AND a 1 hour delta hs-Troponin T less than 3 ng/L should be considered very low risk for 30 day MACE. Performed By: #### L [id number] ####[employer] SystemsMINNIE [facility] LABORATORYCLIA [id number] [address] OF [facility] HIGH SENSITIVITY TROPONIN T (SECOND)on 01-28-2023 HIGH SENSITIVITY MARIE 88 ng/L High <12 [facility] Comment on above: Order Comment: Scott seals Type: BLOOD SPECIMENOrdering Facility: [facility] Address: [address] [place] [address] Result Comment: When assessing risk for acute coronary syndromes: In patients undergoing blood draw greater than or equal to 2 hours from symptom onset, with history of very low to moderate risk and non-ischemic ECG, an initial hs-Troponin T less than 12 ng/L AND a 1 hour delta hs-Troponin T less than 3 ng/L should be considered very low risk for 30 day MACE. Performed By: #### L [id number] ####[employer] SystemsMINNIE [facility] LABORATORYCLIA [id number] [place] [address] [place] HIGH SENSITIVITY TROPONIN T (THIRD) 3 HRS AFTER INITIALon 01-28-2023 HIGH SENSITIVITY MARIE 88 ng/L High <12 [facility] Comment on above: Order Comment: Luhi men Type: BLOOD SPECIMENOrdering Facility: [facility] Address: [address] [place] [address] Result Comment: When assessing risk for acute coronary syndromes: In patients undergoing blood draw greater than or equal to 2 hours from symptom onset, with history of very low to moderate risk and non-ischemic ECG, an initial hs-Troponin T less than 12 ng/L AND a 1 hour delta hs-Troponin T less than 3 ng/L should be considered very low risk for 30 day MACE. Performed By: #### L [id number] ####[facility] LABORATORYCLIA [id number] [address] OF [facility] Urinalysis complete pnl Uron 01-28-2023 Urinalysis complete panel (U) Abnormal [facility] Comment on above: Order Comment: Speci men Type: URINE SPECIMENOrdering Facility: [facility] Address: [address] [place] [address] Performed By: #### 2 4356-8 ####[facility] LABORATORYCLIA [id number] [address] OF [facility] XR CHEST 1V FRONTALon 2022 XR CHEST 1V FRONTAL Normal [facility] Basophil percentageOrdered B y: Lucy Quick on 01-26-2023 Chloride [Moles/Vol] 102 mmol/L 98-107 [facility] Glucose [Mass/Vol] 191 mg/dL 74-106 [facility] Comment on above: Fasting Glucose resu lt greater than or equal to 126 mg/dL suggests DIABETES MELLITUS per A.D.A. criteria. Potassium [Moles/Vol] 4.3 mmol/L 3.5-5.1 [facility] Sodium [Moles/Vol] 137 mmol/L 136-145 [facility] WBC (Bld) [#/Vol] 9.9 10*3/uL 4.4-11.0 [facility] Blood erythrocytes count (nu mber/volume)Ordered By: Lucy Quick on 01-26-2023 RBC (Bld) [#/Vol] 3.43 10*6/uL 4.2-5.4 [facility] Blood hemoglobin measurement (mass/volume)Ordered By: Lucy Quick on 01-26-2023 Hemoglobin (Bld) [Mass/Vol] 9.5 g/dL 12.0-15.0 [facility] Blood platelet mean volumeOr dered By: Lucy Quick on 01-26-2023 Platelet mean volume (Bld) [Entitic vol] 11.1 fL 6.2-12.0 [facility] Determination of erythrocyte mean corpuscular volume (MCV)Ordered By: Lucy Quick on 01-26-2023 MCV (RBC) [Entitic vol] 86.9 fL 81-99 [facility] Hematocrit Auto (Bld) [Volum e fraction]Ordered By: Lucy Quick on 01-26-2023 Hematocrit (Bld) [Volume fraction] 29.8 % 37-47 [facility] Laboratory - Chemistry and C hemistry - challengeOrdered By: Lucy Quick on 01-26-2023 CO2 [Moles/Vol] 29.0 mmol/L 21.0-32.0 [facility] Urea nitrogen/Creatinine [Mass ratio] 22.0 mg/mg 10-20 [facility] Laboratory - Hematology and Cell countsOrdered By: Lucy Quick on 01-26-2023 Erythrocyte distribution width (RBC) [Entitic vol] 53.3 fL 35.1-43.9 [facility] Erythrocyte distribution width (RBC) [Ratio] 16.9 % 11.6-14.6 [facility] MCH (RBC) [Entitic mass] 27.7 pg 27.0-32.0 [facility] MCHC Auto (RBC) [Mass/Vol]Or dered By: Lucy Quick on 01-26-2023 MCHC (RBC) [Mass/Vol] 31.9 g/dL 32-36 [facility] No Panel InformationOrdered By: Lucy Quick on 01-26-2023 Estimated GFR (MDRD) Amer 59 mL/min >60 [facility] Comment on above: GFR Calc Estimated GFR (MDRD) Non-Af Amer 49 mL/min >60 [facility] Comment on above: Non- GFR Calc Platelets bldOrdered By: Josee Quick on 01-26-2023 Platelets (Bld) [#/Vol] 298 10*3/uL 150-450 [facility] Serum or plasma calcium catracho urement (mass/volume)Ordered By: Lucy Quick on 01-26-2023 Calcium [Mass/Vol] 8.8 mg/dL 8.5-10.1 [facility] Serum or plasma creatinine m easurement (mass/volume)Ordered By: Lucy Quick on 01-26-2023 Creatinine [Mass/Vol] 1.18 mg/dL 0.55-1.02 [facility] Comment on above: The validity of the calculated GFR & GFRAA in patients over 70 years has not been determined. Clinical correlation is essential. Serum or plasma urea nitroge n measurement (mass/volume)Ordered By: Lucy Quick on 01-26-2023 Urea nitrogen [Mass/Vol] 26 mg/dL 7-18 [facility] Thin prep Papanicolaou smear with manual screeningOrdered By: Lucy Quick on 01-26-2023 Thin prep Papanicolaou smear with manual screening 6 5-15 [facility] Absolute lymphocyte countOrd ered By: Lucy Quick on 01-18-2023 Lymphocytes Auto (Unsp spec) [#/Vol] 2.69 10*3/uL 0.83-4.51 [facility] Basophil percentageOrdered B y: Lucy Quick on 01-18-2023 Basophil percentage Not Reportable [facility] Neutrophils (Bld) [#/Vol] 4.2 10*3/uL 2.0-7.7 [facility] WBC (Bld) [#/Vol] 7.7 10*3/uL 4.4-11.0 [facility] Blood band neutrophil count as percentage of total leukocytesOrdered By: Lucy Quick on 01-18-2023 Band form neutrophils/100 WBC (Bld) 1 % 0-5 [facility] Blood eosinophils/100 leukoc ytesOrdered By: Lucy Quick on 01-18-2023 Eosinophils/100 WBC (Bld) 6 % 0-5 [facility] Blood erythrocytes count (nu mber/volume)Ordered By: Lucy Quick on 01-18-2023 RBC (Bld) [#/Vol] 3.17 10*6/uL 4.2-5.4 [facility] Blood hemoglobin measurement (mass/volume)Ordered By: Lucy Quick on 01-18-2023 Hemoglobin (Bld) [Mass/Vol] 8.9 g/dL 12.0-15.0 [facility] Blood lymphocytes/100 leukoc ytesOrdered By: Lucy Quick on 01-18-2023 Lymphocytes/100 WBC (Bld) 35 % 19-41 [facility] Blood monocytes/100 leukocyt esOrdered By: Lucy Quick on 01-18-2023 Monocytes/100 WBC (Bld) 3 % 0-10 [facility] Blood platelet adequacy dete ction by light microscopyOrdered By: Lucy Quick on 01-18-2023 Platelets LM Ql (Bld) ADEQUATE ADEQ [facility] Blood platelet mean volumeOr dered By: Lucy Quick on 01-18-2023 Platelet mean volume (Bld) [Entitic vol] 9.6 fL 6.2-12.0 [facility] Blood segmented neutrophils/ 100 leukocytesOrdered By: Lucy Quick on 01-18-2023 Segmented neutrophils/100 WBC (Bld) 54 % 47-70 [facility] Determination of erythrocyte mean corpuscular volume (MCV)Ordered By: Lucy Quick on 01-18-2023 MCV (RBC) [Entitic vol] 94.6 fL 81-99 [facility] Hematocrit Auto (Bld) [Volum e fraction]Ordered By: Lucy Quick on 01-18-2023 Hematocrit (Bld) [Volume fraction] 30.0 % 37-47 [facility] Laboratory - Hematology and Cell countsOrdered By: Lucy Quick on 01-18-2023 Erythrocyte distribution width (RBC) [Entitic vol] 55.1 fL 35.1-43.9 [facility] Erythrocyte distribution width (RBC) [Ratio] 15.9 % 11.6-14.6 [facility] MCH (RBC) [Entitic mass] 28.1 pg 27.0-32.0 [facility] MCHC Auto (RBC) [Mass/Vol]Or dered By: Lucy Quick on 01-18-2023 MCHC (RBC) [Mass/Vol] 29.7 g/dL 32-36 [facility] No Panel InformationOrdered By: Lucy Quick on 01-18-2023 Plasma Cells % (manual) 1 % [facility] Platelets bldOrdered By: Pet er Dustin on 01-18-2023 Platelets (Bld) [#/Vol] 236 10*3/uL 150-450 [facility] RBC morphologyOrdered By: Jemal Campos on 01-18-2023 RBC morphology finding Nom (Bld) NORM C+C NORMAL NORM C&C [facility] Review by pathologistOrdered By: Lucy Quick on 01-18-2023 Pathologist review Anselmo (Unsp spec) [Interp] Reviewed [facility] Comment on above: Previous reported re sult: Carol johnson Edited by: RGOOD on 01/19/23:0936Neutrophilic left shift.Normocytic anemia.Clinical correlation necessary.Gene Fountain M.D. 01/19/23 AMENDED REPORT 01/19/23 0936 PATH REV previously reported as: Carol johnson Total cell countOrdered By: Lucy Quick on 01-18-2023 Cells counted Molgen (Bld/Tiss) [#] 100 MANUAL DIFF [facility] Basophil percentageOrdered B y: Lucy Quick on 01-17-2023 Chloride [Moles/Vol] 106 mmol/L 98-107 [facility] Glucose [Mass/Vol] 131 mg/dL 74-106 [facility] Comment on above: Fasting Glucose resu lt greater than or equal to 126 mg/dL suggests DIABETES MELLITUS per A.D.A. criteria. Potassium [Moles/Vol] 4.7 mmol/L 3.5-5.1 [facility] Sodium [Moles/Vol] 142 mmol/L 136-145 [facility] CNPNon 01-17-2023 CNPN Normal [facility] CNPTOUTREACHon 01-17-2023 CNPTOUTREACH Normal [facility] Laboratory - Chemistry and C hemistry - challengeOrdered By: Lucy Quick on 01-17-2023 CO2 [Moles/Vol] 28.0 mmol/L 21.0-32.0 [facility] Urea nitrogen/Creatinine [Mass ratio] 18.0 mg/mg 10-20 [facility] No Panel InformationOrdered By: Lucy Quick on 01-17-2023 Estimated GFR (MDRD) Amer 51 mL/min >60 [facility] Comment on above: GFR Calc Estimated GFR (MDRD) Non-Af Amer 43 mL/min >60 [facility] Comment on above: Non- GFR Calc Serum or plasma calcium catracho urement (mass/volume)Ordered By: Lucy Quick on 01-17-2023 Calcium [Mass/Vol] 8.6 mg/dL 8.5-10.1 [facility] Serum or plasma creatinine m easurement (mass/volume)Ordered By: Lucy Quick on 01-17-2023 Creatinine [Mass/Vol] 1.33 mg/dL 0.55-1.02 [facility] Comment on above: The validity of the calculated GFR & GFRAA in patients over 70 years has not been determined. Clinical correlation is essential. Serum or plasma urea nitroge n measurement (mass/volume)Ordered By: Lucy Quick on 01-17-2023 Urea nitrogen [Mass/Vol] 24 mg/dL 7-18 [facility] Thin prep Papanicolaou smear with manual screeningOrdered By: Lucy Quick on 01-17-2023 Thin prep Papanicolaou smear with manual screening 8 5-15 [facility] CASE MANAGEMon 01-16-2023 CASE MANAGEM Normal [facility] CBC panel Auto (Bld)on 01-16 Erythrocyte distribution width (RBC) [Ratio] 15.9 % High 11.5-15.0 [facility] Comment on above: Order Comment: Speci men Type: BLOOD SPECIMENOrdering Facility: [facility] Address: [place] [address] Performed By: #### 5 8410-2 ####[facility] LABORATORYCLIA [id number] [place] [address] [place] Hematocrit (Bld) [Volume fraction] 29.9 % Low 36.0-46.0 [facility] Comment on above: Order Comment: Speci men Type: BLOOD SPECIMENOrdering Facility: [facility] Address: [address] [place] [address] Performed By: #### 5 8410-2 ####[facility] LABORATORYCLIA [id number] [address] STATES OF [facility] Hemoglobin (Bld) [Mass/Vol] 8.9 g/dL Low 11.5-15.5 [facility] Comment on above: Order Comment: Speci men Type: BLOOD SPECIMENOrdering Facility: [facility] Address: [address] [place] [address] Performed By: #### 5 8410-2 ####[facility] LABORATORYCLIA [id number] [address] OF [facility] MCH (RBC) [Entitic mass] 28.3 pg Normal 26.0-34.0 [facility] Comment on above: Order Comment: Speci men Type: BLOOD SPECIMENOrdering Facility: [facility] Address: [address] [place] [address] Performed By: #### 5 8410-2 ####[facility] LABORATORYCLIA [id number] [address] MCHC (RBC) [Mass/Vol] 29.8 g/dL Low 30.5-36.0 [facility] Comment on above: Order Comment: Speci men Type: BLOOD SPECIMENOrdering Facility: [facility] Address: [address] [place] [address] Performed By: #### 5 8410-2 ####[facility] LABORATORYCLIA [id number] [address] [place] MCV (RBC) [Entitic vol] 95.2 fL Normal 80.0-100.0 [facility] Comment on above: Order Comment: Speci men Type: BLOOD SPECIMENOrdering Facility: [facility] Address: [address] [place] [address] Performed By: #### 5 8410-2 ####[facility] LABORATORYCLIA [id number] [place] [address] [place] Nucleated RBC (Bld) [#/Vol] 10*3/uL Normal <0.01 [facility] Comment on above: Order Comment: Speci men Type: BLOOD SPECIMENOrdering Facility: [facility] Address: [address] [place] [address] Performed By: #### 5 8410-2 ####[facility] LABORATORYCLIA [id number] [place] [address] [place] Platelet mean volume (Bld) [Entitic vol] 8.8 fL Low 9.0-12.7 [facility] Comment on above: Order Comment: Speci men Type: BLOOD SPECIMENOrdering Facility: [facility] Address: [address] [place] [address] Performed By: #### 5 8410-2 ####[facility] LABORATORYCLIA [id number] [address] [place] Platelets (Bld) [#/Vol] 253 10*3/uL Normal 150-400 [facility] Comment on above: Order Comment: Speci men Type: BLOOD SPECIMENOrdering Facility: [facility] Address: [address] [place] [address] Performed By: #### 5 8410-2 ####[facility] LABORATORYCLIA [id number] [place] [address] [place] RBC (Bld) [#/Vol] 3.14 10*6/uL Low 3.90-5.20 [facility] Comment on above: Order Comment: Speci men Type: BLOOD SPECIMENOrdering Facility: [facility] Address: [address] [place] [address] Performed By: #### 5 8410-2 ####[facility] LABORATORYCLIA [id number] [address] [place] WBC (Bld) [#/Vol] 6.92 10*3/uL Normal 3.70-11.00 [facility] Comment on above: Order Comment: Speci men Type: BLOOD SPECIMENOrdering Facility: [facility] Address: [address] [place] [address] Performed By: #### 5 8410-2 ####[facility] LABORATORYCLIA [id number] [place] [address] [place] CNDSon 01-16-2023 CNDS Normal [facility] Renal function 2000 panelon 01-16-2023 Albumin [Mass/Vol] 2.6 g/dL Low 3.9-4.9 [facility] Comment on above: Order Comment: Speci men Type: BLOOD SPECIMENOrdering Facility: [facility] Address: [address] [place] [address] Performed By: #### 2 4362-6 ####[facility] LABORATORYCLIA [id number] [place] [address] [place] Anion gap [Moles/Vol] 7 mmol/L Low 9-18 [facility] Comment on above: Order Comment: Speci men Type: BLOOD SPECIMENOrdering Facility: [facility] Address: [address] [place] [address] Performed By: #### 2 4362-6 ####[facility] LABORATORYCLIA [id number] [place] [address] [place] Calcium [Mass/Vol] 8.2 mg/dL Low 8.5-10.2 [facility] Comment on above: Order Comment: Speci men Type: BLOOD SPECIMENOrdering Facility: [facility] Address: [address] [place] [address] Performed By: #### 2 4362-6 ####[facility] LABORATORYCLIA [id number] [place] [address] [place] Chloride [Moles/Vol] 101 mmol/L Normal 97-105 [facility] Comment on above: Order Comment: Speci men Type: BLOOD SPECIMENOrdering Facility: [facility] Address: [address] [place] [address] Performed By: #### 2 4362-6 ####[facility] LABORATORYCLIA [id number] [address] CO2 [Moles/Vol] 32 mmol/L High 22-30 [facility] Comment on above: Order Comment: Speci men Type: BLOOD SPECIMENOrdering Facility: [facility] Address: [address] [address] Performed By: #### 2 4362-6 ####[facility] LABORATORYCLIA [id number] [address] OF [facility] Creatinine [Mass/Vol] 1.04 mg/dL High 0.58-0.96 [facility] Comment on above: Order Comment: Speci men Type: BLOOD SPECIMENOrdering Facility: [facility] Address: [address] [place] [address] Performed By: #### 2 4362-6 ####[facility] LABORATORYCLIA [id number] [address] ESTIMATED GLOMERULAR FILTRATION RATE 60 mL/min/1.73m??? Normal >=60 [facility] Comment on above: Order Comment: Speci men Type: BLOOD SPECIMENOrdering Facility: [facility] Address: [address] [place] [address] Result Comment: Petra mated Glomerular Filtration Rate (eGFR) is calculated using the 2020 CKD-EPI creatinine equation. This equation utilizes serum creatinine, sex, and age as parameters. The creatinine assay has traceable calibration to isotope dilution-mass spectrometry. Refer to KDIGO guidelines for clinical interpretation. In patients with unstable renal function, e.g. those with acute kidney injury, the eGFR may not accurately reflect actual GFR. Performed By: #### 2 4362-6 ####[facility] LABORATORYCLIA [id number] [address] OF [place] Glucose [Mass/Vol] 222 mg/dL High 74-99 [facility] Comment on above: Order Comment: Speci men Type: BLOOD SPECIMENOrdering Facility: [facility] Address: [address] [place] [address] Result Comment: The [place] [employer] (ADA) provides guidance for cutoff values for fasting glucose and random glucose. The ADA defines fasting as no caloric intake for at least 8 hours. Fasting plasma glucose results between 100 to 125 mg/dL indicate increased risk for diabetes (prediabetes).Fasting plasma glucose results greater than or equal to 126 mg/dL meet the criteria for diagnosis of diabetes. In the absence of unequivocal hyperglycemia, results should be confirmed by repeat testing. In a patient with classic symptoms of hyperglycemia or hyperglycemic crisis, random plasma glucose results greater than or equal to 200 mg/dL meet the criteria for diagnosis of diabetes.Reference: Standards of Medical Care in Diabetes 2016, [place] [employer]. Diabetes Care. 2016.39(Suppl 1). Performed By: #### 2 4362-6 ####[facility] LABORATORYCLIA [id number] [place] [address] [place] Phosphate [Mass/Vol] 2.5 mg/dL Low 2.7-4.8 [facility] Comment on above: Order Comment: Spectalia men Type: BLOOD SPECIMENOrdering Facility: [facility] Address: [address] [place] [address] Performed By: #### 2 4362-6 ####[facility] LABORATORYCLIA [id number] [place] [address] [place] Potassium [Moles/Vol] 4.0 mmol/L Normal 3.7-5.1 [facility] Comment on above: Order Comment: Scott seals Type: BLOOD SPECIMENOrdering Facility: [facility] Address: [address] [place] [address] Performed By: #### 2 4362-6 ####[facility] LABORATORYCLIA [id number] [place] [address] [place] Sodium [Moles/Vol] 140 mmol/L Normal 136-144 [facility] Comment on above: Order Comment: Speci men Type: BLOOD SPECIMENOrdering Facility: [facility] Address: [address] [place] [address] Performed By: #### 2 4362-6 ####[facility] LABORATORYCLIA [id number] [place] [address] [place] Urea nitrogen [Mass/Vol] 25 mg/dL High 7-21 [facility] Comment on above: Order Comment: Speci men Type: BLOOD SPECIMENOrdering Facility: [facility] Address: [address] [place] [address] Performed By: #### 2 4362-6 ####[facility] LABORATORYCLIA [id number] [address] [place] CASE MGT INIT ASSESon 2022 CASE MGT INIT ASSES Normal [facility] CBC panel Auto (Bld)on 01-15 Erythrocyte distribution width (RBC) [Ratio] 16.4 % High 11.5-15.0 [facility] Comment on above: Order Comment: Speci men Type: BLOOD SPECIMENOrdering Facility: [facility] Address: [address] [place] [address] Performed By: #### 5 8410-2 ####[facility] LABORATORYCLIA [id number] [address] STATES OF [facility] Hematocrit (Bld) [Volume fraction] 30.0 % Low 36.0-46.0 [facility] Comment on above: Order Comment: Speci men Type: BLOOD SPECIMENOrdering Facility: [facility] Address: [address] [place] [address] Performed By: #### 5 8410-2 ####[facility] LABORATORYCLIA [id number] [address] [place] Hemoglobin (Bld) [Mass/Vol] 8.6 g/dL Low 11.5-15.5 [facility] Comment on above: Order Comment: Speci men Type: BLOOD SPECIMENOrdering Facility: [facility] Address: [address] [place] [address] Performed By: #### 5 8410-2 ####[facility] LABORATORYCLIA [id number] [address] [place] MCH (RBC) [Entitic mass] 28.0 pg Normal 26.0-34.0 [facility] Comment on above: Order Comment: Speci men Type: BLOOD SPECIMENOrdering Facility: [facility] Address: [address] [address] Performed By: #### 5 8410-2 ####[facility] LABORATORYCLIA [id number] [address] MCHC (RBC) [Mass/Vol] 28.7 g/dL Low 30.5-36.0 [facility] Comment on above: Order Comment: Speci men Type: BLOOD SPECIMENOrdering Facility: [facility] Address: [address] [address] Performed By: #### 5 8410-2 ####[facility] LABORATORYCLIA [id number] [address] MCV (RBC) [Entitic vol] 97.7 fL Normal 80.0-100.0 [facility] Comment on above: Order Comment: Speci men Type: BLOOD SPECIMENOrdering Facility: [facility] Address: [address] [place] [address] Performed By: #### 5 8410-2 ####[facility] LABORATORYCLIA [id number] [address] Nucleated RBC (Bld) [#/Vol] 10*3/uL Normal <0.01 [facility] Comment on above: Order Comment: Speci men Type: BLOOD SPECIMENOrdering Facility: [facility] Address: [address] [place] [address] Performed By: #### 5 8410-2 ####[facility] LABORATORYCLIA [id number] [address] Platelet mean volume (Bld) [Entitic vol] 8.6 fL Low 9.0-12.7 [facility] Comment on above: Order Comment: Speci men Type: BLOOD SPECIMENOrdering Facility: [facility] Address: [address] [place] [address] Performed By: #### 5 8410-2 ####[facility] LABORATORYCLIA [id number] [address] Platelets (Bld) [#/Vol] 243 10*3/uL Normal 150-400 [facility] Comment on above: Order Comment: Speci men Type: BLOOD SPECIMENOrdering Facility: [facility] Address: [address] [place] [address] Performed By: #### 5 8410-2 ####[facility] LABORATORYCLIA [id number] [address] [place] RBC (Bld) [#/Vol] 3.07 10*6/uL Low 3.90-5.20 [facility] Comment on above: Order Comment: Speci men Type: BLOOD SPECIMENOrdering Facility: [facility] Address: [address] [place] [address] Performed By: #### 5 8410-2 ####[facility] LABORATORYCLIA [id number] [address] WBC (Bld) [#/Vol] 6.50 10*3/uL Normal 3.70-11.00 [facility] Comment on above: Order Comment: Speci men Type: BLOOD SPECIMENOrdering Facility: [facility] Address: [address] [place] [address] Performed By: #### 5 8410-2 ####[facility] LABORATORYCLIA [id number] [address] CNPNon 01-15-2023 CNPN Normal [facility] CNPTOUTREACHon 01-15-2023 CNPTOUTREACH Normal [facility] CONSULT PROGon 01-15-2023 CONSULT PROG Normal [facility] Renal function 2000 panelon 01-15-2023 Albumin [Mass/Vol] 2.6 g/dL Low 3.9-4.9 [facility] Comment on above: Order Comment: Speci men Type: BLOOD SPECIMENOrdering Facility: [facility] Address: [address] [place] [address] Performed By: #### 2 4362-6 ####[facility] LABORATORYCLIA [id number] [address] Anion gap [Moles/Vol] 7 mmol/L Low 9-18 [facility] Comment on above: Order Comment: Speci men Type: BLOOD SPECIMENOrdering Facility: [facility] Address: [address] [place] [address] Performed By: #### 2 4362-6 ####[facility] LABORATORYCLIA [id number] [place] [address] [place] Calcium [Mass/Vol] 8.4 mg/dL Low 8.5-10.2 [facility] Comment on above: Order Comment: Speci men Type: BLOOD SPECIMENOrdering Facility: [facility] Address: [address] [place] [address] Performed By: #### 2 4362-6 ####[facility] LABORATORYCLIA [id number] [place] [address] [place] Chloride [Moles/Vol] 101 mmol/L Normal 97-105 [facility] Comment on above: Order Comment: Speci men Type: BLOOD SPECIMENOrdering Facility: [facility] Address: [address] [place] [address] Performed By: #### 2 4362-6 ####[facility] LABORATORYCLIA [id number] [place] [address] [place] CO2 [Moles/Vol] 32 mmol/L High 22-30 [facility] Comment on above: Order Comment: Speci men Type: BLOOD SPECIMENOrdering Facility: [facility] Address: [address] [place] [address] Performed By: #### 2 4362-6 ####[facility] LABORATORYCLIA [id number] [place] [address] [place] Creatinine [Mass/Vol] 1.34 mg/dL High 0.58-0.96 [facility] Comment on above: Order Comment: Speci men Type: BLOOD SPECIMENOrdering Facility: [facility] Address: [address] [place] [address] Performed By: #### 2 4362-6 ####[facility] LABORATORYCLIA [id number] [place] [address] [place] ESTIMATED GLOMERULAR FILTRATION RATE 44 mL/min/1.73m??? Low >=60 [facility] Comment on above: Order Comment: Scott seals Type: BLOOD SPECIMENOrdering Facility: [facility] Address: [address] [place] [address] Result Comment: Petra mated Glomerular Filtration Rate (eGFR) is calculated using the 2020 CKD-EPI creatinine equation. This equation utilizes serum creatinine, sex, and age as parameters. The creatinine assay has traceable calibration to isotope dilution-mass spectrometry. Refer to KDIGO guidelines for clinical interpretation. In patients with unstable renal function, e.g. those with acute kidney injury, the eGFR may not accurately reflect actual GFR. Performed By: #### 2 4362-6 ####[facility] LABORATORYCLIA [id number] [place] [address] [place] Glucose [Mass/Vol] 272 mg/dL High 74-99 [facility] Comment on above: Order Comment: Scott saels Type: BLOOD SPECIMENOrdering Facility: [facility] Address: [address] [place] [address] Result Comment: The [place] [employer] (ADA) provides guidance for cutoff values for fasting glucose and random glucose. The ADA defines fasting as no caloric intake for at least 8 hours. Fasting plasma glucose results between 100 to 125 mg/dL indicate increased risk for diabetes (prediabetes).Fasting plasma glucose results greater than or equal to 126 mg/dL meet the criteria for diagnosis of diabetes. In the absence of unequivocal hyperglycemia, results should be confirmed by repeat testing. In a patient with classic symptoms of hyperglycemia or hyperglycemic crisis, random plasma glucose results greater than or equal to 200 mg/dL meet the criteria for diagnosis of diabetes.Reference: Standards of Medical Care in Diabetes 2016, [place] [employer]. Diabetes Care. 2016.39(Suppl 1). Performed By: #### 2 4362-6 ####[facility] LABORATORYCLIA [id number] [place] [id number] [place] Phosphate [Mass/Vol] 3.0 mg/dL Normal 2.7-4.8 [facility] Comment on above: Order Comment: Scott seals Type: BLOOD SPECIMENOrdering Facility: [facility] Address: [address] [place] [address] Performed By: #### 2 4362-6 ####[facility] LABORATORYCLIA [id number] [address] [place] [facility] Potassium [Moles/Vol] 4.1 mmol/L Normal 3.7-5.1 [facility] Comment on above: Order Comment: Speci men Type: BLOOD SPECIMENOrdering Facility: [facility] Address: [address] [place] [address] Performed By: #### 2 4362-6 ####[facility] LABORATORYCLIA [id number] [address] OF [facility] Sodium [Moles/Vol] 140 mmol/L Normal 136-144 [facility] Comment on above: Order Comment: Speci men Type: BLOOD SPECIMENOrdering Facility: [facility] Address: [address] [place] [address] Performed By: #### 2 4362-6 ####[facility] LABORATORYCLIA [id number] [address] OF [facility] Urea nitrogen [Mass/Vol] 29 mg/dL High 7-21 [facility] Comment on above: Order Comment: Speci men Type: BLOOD SPECIMENOrdering Facility: [facility] Address: [address] [place] [address] Performed By: #### 2 4362-6 ####[facility] LABORATORYCLIA [id number] [address] [place] THERAPY NTon 01-15-2023 THERAPY NT Normal [facility] THERAPY NT Normal [facility] Ammonia Plas-sCncon 01-15-20 23 Ammonia (P) [Moles/Vol] 20 umol/L Normal 11-51 [facility] Comment on above: Order Comment: Speci men Type: BLOOD SPECIMENOrdering Facility: [facility] Address: [address] [place] [address] Performed By: #### 1 6362-6 ####[facility] LABORATORYCLIA [id number] [address] CBC panel Auto (Bld)on 01-14 Erythrocyte distribution width (RBC) [Ratio] 16.3 % High 11.5-15.0 [facility] Comment on above: Order Comment: Speci men Type: BLOOD SPECIMENOrdering Facility: [facility] Address: [address] [place] [address] Performed By: #### 5 8410-2 ####[facility] LABORATORYCLIA [id number] [address] Hematocrit (Bld) [Volume fraction] 32.5 % Low 36.0-46.0 [facility] Comment on above: Order Comment: Speci men Type: BLOOD SPECIMENOrdering Facility: [facility] Address: [address] [place] [address] Performed By: #### 5 8410-2 ####[facility] LABORATORYCLIA [id number] [address] Hemoglobin (Bld) [Mass/Vol] 9.4 g/dL Low 11.5-15.5 [facility] Comment on above: Order Comment: Speci men Type: BLOOD SPECIMENOrdering Facility: [facility] Address: [address] [place] [address] Performed By: #### 5 8410-2 ####[facility] LABORATORYCLIA [id number] [address] MCH (RBC) [Entitic mass] 28.0 pg Normal 26.0-34.0 [facility] Comment on above: Order Comment: Speci men Type: BLOOD SPECIMENOrdering Facility: [facility] Address: [address] [place] [address] Performed By: #### 5 8410-2 ####[facility] LABORATORYCLIA [id number] [address] [place] MCHC (RBC) [Mass/Vol] 28.9 g/dL Low 30.5-36.0 [facility] Comment on above: Order Comment: Speci men Type: BLOOD SPECIMENOrdering Facility: [facility] Address: [address] [place] [address] Performed By: #### 5 8410-2 ####[facility] LABORATORYCLIA [id number] [address] MCV (RBC) [Entitic vol] 96.7 fL Normal 80.0-100.0 [facility] Comment on above: Order Comment: Speci men Type: BLOOD SPECIMENOrdering Facility: [facility] Address: [address] [place] [address] Performed By: #### 5 8410-2 ####[facility] LABORATORYCLIA [id number] [address] Nucleated RBC (Bld) [#/Vol] 10*3/uL Normal <0.01 [facility] Comment on above: Order Comment: Speci men Type: BLOOD SPECIMENOrdering Facility: [facility] Address: [address] [place] [address] Performed By: #### 5 8410-2 ####[facility] LABORATORYCLIA [id number] [address] Platelet mean volume (Bld) [Entitic vol] 8.5 fL Low 9.0-12.7 [facility] Comment on above: Order Comment: Speci men Type: BLOOD SPECIMENOrdering Facility: [facility] Address: [address] [place] [address] Performed By: #### 5 8410-2 ####[facility] LABORATORYCLIA [id number] [address] Platelets (Bld) [#/Vol] 255 10*3/uL Normal 150-400 [facility] Comment on above: Order Comment: Speci men Type: BLOOD SPECIMENOrdering Facility: [facility] Address: [address] [place] [address] Performed By: #### 5 8410-2 ####[facility] LABORATORYCLIA [id number] [address] RBC (Bld) [#/Vol] 3.36 10*6/uL Low 3.90-5.20 [facility] Comment on above: Order Comment: Speci men Type: BLOOD SPECIMENOrdering Facility: [facility] Address: [address] [place] [address] Performed By: #### 5 8410-2 ####[facility] LABORATORYCLIA [id number] [place] [address] [place] WBC (Bld) [#/Vol] 5.12 10*3/uL Normal 3.70-11.00 [facility] Comment on above: Order Comment: Speci men Type: BLOOD SPECIMENOrdering Facility: [facility] Address: [address] [place] [address] Performed By: #### 5 8410-2 ####[facility] LABORATORYCLIA [id number] [address] Gas and Carbon monoxide pane l (BldV)on 01-14-2023 Base excess Calc (BldV) [Moles/Vol] 7 mmol/L High 0-2 [facility] Comment on above: Order Comment: Speci men Type: VENOUS BLOOD SPECIMENOrdering Facility: [facility] Address: [address] [place] [address] Performed By: #### 2 4344-4 ####[facility] LABORATORYCLIA [id number] [address] STATES OF [facility] Body temperature 98.6 [degF] Normal [facility] Comment on above: Order Comment: Speci men Type: VENOUS BLOOD SPECIMENOrdering Facility: [facility] Address: [address] [place] [address] Performed By: #### 2 4344-4 ####[facility] LABORATORYCLIA [id number] [address] Calcium.ionized (BldV) [Mass/Vol] 1.10 mmol/L Normal 1.08-1.30 [facility] Comment on above: Order Comment: Speci men Type: VENOUS BLOOD SPECIMENOrdering Facility: [facility] Address: [address] [address] Performed By: #### 2 4344-4 ####[facility] LABORATORYCLIA [id number] [address] Calcium.ionized adjusted to pH 7.4 (BldA) [Moles/Vol] 1.09 mmol/L Normal 1.08-1.30 [facility] Comment on above: Order Comment: Speci men Type: VENOUS BLOOD SPECIMENOrdering Facility: [facility] Address: [address] [place] [address] Performed By: #### 2 4344-4 ####[facility] LABORATORYCLIA [id number] [address] OF [facility] Carboxyhemoglobin (BldV) [Mass fraction] <1.0 Normal 0.0-2.0 [facility] Comment on above: Order Comment: Speci men Type: VENOUS BLOOD SPECIMENOrdering Facility: [facility] Address: [address] [place] [address] Result Comment: Carb oxyhemoglobin Reference Range for Smokers: 2.0-8.0% Performed By: #### 2 4344-4 ####[facility] LABORATORYCLIA [id number] [address] STATES OF [facility] Chloride [Moles/Vol] 104 mmol/L Normal 102-109 [facility] Comment on above: Order Comment: Speci men Type: VENOUS BLOOD SPECIMENOrdering Facility: [facility] Address: [address] [place] [address] Performed By: #### 2 4344-4 ####[facility] LABORATORYCLIA [id number] [address] [place] CO2 (BldV) [Partial pressure] 58 mm[Hg] High 42-55 [facility] Comment on above: Order Comment: Speci men Type: VENOUS BLOOD SPECIMENOrdering Facility: [facility] Address: [address] [place] [address] Performed By: #### 2 4344-4 ####[facility] LABORATORYCLIA [id number] [place] [address] [place] CO2 [Moles/Vol] 31 mmol/L High 25-29 [facility] Comment on above: Order Comment: Speci men Type: VENOUS BLOOD SPECIMENOrdering Facility: [facility] Address: [address] [address] Performed By: #### 2 4344-4 ####[facility] LABORATORYCLIA [id number] [place] [address] [place] Glucose [Mass/Vol] 149 mg/dL High 60-105 [facility] Comment on above: Order Comment: Speci men Type: VENOUS BLOOD SPECIMENOrdering Facility: [facility] Address: [address] [address] Performed By: #### 2 4344-4 ####[facility] LABORATORYCLIA [id number] [place] [address] [place] HCO3 (Bld) [Moles/Vol] 33 mmol/L High 24-28 [facility] Comment on above: Order Comment: Speci men Type: VENOUS BLOOD SPECIMENOrdering Facility: [facility] Address: [address] [place] [address] Performed By: #### 2 4344-4 ####[facility] LABORATORYCLIA [id number] [place] [address] [place] Hematocrit (Bld) [Volume fraction] 28.0 % Low 36.0-46.0 [facility] Comment on above: Order Comment: Speci men Type: VENOUS BLOOD SPECIMENOrdering Facility: [facility] Address: [address] [address] Performed By: #### 2 4344-4 ####[facility] LABORATORYCLIA [id number] [place] [address] [place] Hemoglobin (Bld) [Mass/Vol] 9.0 g/dL Low 11.5-15.5 [facility] Comment on above: Order Comment: Speci men Type: VENOUS BLOOD SPECIMENOrdering Facility: [facility] Address: [address] [place], [place] [address] Performed By: #### 2 4344-4 ####[facility] LABORATORYCLIA [id number] [address] [place] Lactate [Moles/Vol] 1.2 mmol/L Normal 0.5-2.2 [facility] Comment on above: Order Comment: Speci men Type: VENOUS BLOOD SPECIMENOrdering Facility: [facility] Address: [address] [place] [address] Performed By: #### 2 4344-4 ####[facility] LABORATORYCLIA [id number] [address] [place] Methemoglobin (Bld) [Mass fraction] % Normal 0.0-1.5 [facility] Comment on above: Order Comment: Speci men Type: VENOUS BLOOD SPECIMENOrdering Facility: [facility] Address: [address] [place] [address] Performed By: #### 2 4344-4 ####[facility] LABORATORYCLIA [id number] [address] [place] O2 THERAPY [place] = Nasal Cannula Normal [facility] Comment on above: Order Comment: Speci men Type: VENOUS BLOOD SPECIMENOrdering Facility: [facility] Address: [address] [place] [address] Result Comment: 4L Performed By: #### 2 4344-4 ####[facility] LABORATORYCLIA [id number] [address] [place] Oxygen (BldV) [Partial pressure] 112 mm[Hg] High 35-45 [facility] Comment on above: Order Comment: Speci men Type: VENOUS BLOOD SPECIMENOrdering Facility: [facility] Address: [address] [place] [address] Performed By: #### 2 4344-4 ####[facility] LABORATORYCLIA [id number] [address] [place] Oxygen saturation in Venous blood 96 % High 60-85 [facility] Comment on above: Order Comment: Speci men Type: VENOUS BLOOD SPECIMENOrdering Facility: [facility] Address: [address] [address] Performed By: #### 2 4344-4 ####[facility] LABORATORYCLIA [id number] [address] Oxyhemoglobin (BldV) [Mass fraction] 95 % High 60-85 [facility] Comment on above: Order Comment: Speci men Type: VENOUS BLOOD SPECIMENOrdering Facility: [facility] Address: [address] [address] Performed By: #### 2 4344-4 ####[facility] LABORATORYCLIA [id number] [address] [place] pH (BldV) 7.37 [pH] Normal 7.32-7.42 [facility] Comment on above: Order Comment: Speci men Type: VENOUS BLOOD SPECIMENOrdering Facility: [facility] Address: [address] [place] [address] Performed By: #### 2 4344-4 ####[facility] LABORATORYCLIA [id number] [address] [place] Potassium [Moles/Vol] 3.5 mmol/L Normal 3.5-5.0 [facility] Comment on above: Order Comment: Speci men Type: VENOUS BLOOD SPECIMENOrdering Facility: [facility] Address: [address] [place] [address] Performed By: #### 2 4344-4 ####[facility] LABORATORYCLIA [id number] [address] [place] Sodium [Moles/Vol] 140 mmol/L Normal 136-144 [facility] Comment on above: Order Comment: Speci men Type: VENOUS BLOOD SPECIMENOrdering Facility: [facility] Address: [address] [place] [address] Performed By: #### 2 4344-4 ####[facility] LABORATORYCLIA [id number] [place] [address] [place] Renal function 2000 panelon 01-14-2023 Albumin [Mass/Vol] 2.9 g/dL Low 3.9-4.9 [facility] Comment on above: Order Comment: Speci men Type: BLOOD SPECIMENOrdering Facility: [facility] Address: [address] [place] [address] Performed By: #### 2 4362-6 ####[facility] LABORATORYCLIA [id number] [place] [address] [place] Anion gap [Moles/Vol] 6 mmol/L Low 9-18 [facility] Comment on above: Order Comment: Speci men Type: BLOOD SPECIMENOrdering Facility: [facility] Address: [address] [place] [address] Performed By: #### 2 4362-6 ####[facility] LABORATORYCLIA [id number] [place] [address] [place] Calcium [Mass/Vol] 8.8 mg/dL Normal 8.5-10.2 [facility] Comment on above: Order Comment: Speci men Type: BLOOD SPECIMENOrdering Facility: [facility] Address: [address] [place] [address] Performed By: #### 2 4362-6 ####[facility] LABORATORYCLIA [id number] [place] [address] [place] Chloride [Moles/Vol] 102 mmol/L Normal 97-105 [facility] Comment on above: Order Comment: Speci men Type: BLOOD SPECIMENOrdering Facility: [facility] Address: [address] [place] [address] Performed By: #### 2 4362-6 ####[facility] LABORATORYCLIA [id number] [place] [address] [place] CO2 [Moles/Vol] 35 mmol/L High 22-30 [facility] Comment on above: Order Comment: Speci men Type: BLOOD SPECIMENOrdering Facility: [facility] Address: [address] [place] [address] Performed By: #### 2 4362-6 ####[facility] LABORATORYCLIA [id number] [place] [address] [place] Creatinine [Mass/Vol] 1.25 mg/dL High 0.58-0.96 [facility] Comment on above: Order Comment: Luhtalia seals Type: BLOOD SPECIMENOrdering Facility: [facility] Address: [address] [place] [id number] Performed By: #### 2 4362-6 ####[facility] LABORATORYCLIA [id number] [address] ESTIMATED GLOMERULAR FILTRATION RATE 48 mL/min/1.73m??? Low >=60 [facility] Comment on above: Order Comment: Scott bozena Type: BLOOD SPECIMENOrdering Facility: [facility] Address: [address] [place] [address] Result Comment: Petra mated Glomerular Filtration Rate (eGFR) is calculated using the 2020 CKD-EPI creatinine equation. This equation utilizes serum creatinine, sex, and age as parameters. The creatinine assay has traceable calibration to isotope dilution-mass spectrometry. Refer to KDIGO guidelines for clinical interpretation. In patients with unstable renal function, e.g. those with acute kidney injury, the eGFR may not accurately reflect actual GFR. Performed By: #### 2 4362-6 ####[facility] LABORATORYCLIA [id number] [address] Glucose [Mass/Vol] 96 mg/dL Normal 74-99 [facility] Comment on above: Order Comment: Luhtalia seals Type: BLOOD SPECIMENOrdering Facility: [facility] Address: [address] [place] [address] Result Comment: The [place] [employer] (ADA) provides guidance for cutoff values for fasting glucose and random glucose. The ADA defines fasting as no caloric intake for at least 8 hours. Fasting plasma glucose results between 100 to 125 mg/dL indicate increased risk for diabetes (prediabetes).Fasting plasma glucose results greater than or equal to 126 mg/dL meet the criteria for diagnosis of diabetes. In the absence of unequivocal hyperglycemia, results should be confirmed by repeat testing. In a patient with classic symptoms of hyperglycemia or hyperglycemic crisis, random plasma glucose results greater than or equal to 200 mg/dL meet the criteria for diagnosis of diabetes.Reference: Standards of Medical Care in Diabetes 2016, [place] [employer]. Diabetes Care. 2016.39(Suppl 1). Performed By: #### 2 4362-6 ####[facility] LABORATORYCLIA [id number] [place] [address] [place] Phosphate [Mass/Vol] 2.9 mg/dL Normal 2.7-4.8 [facility] Comment on above: Order Comment: Speci men Type: BLOOD SPECIMENOrdering Facility: [facility] Address: [address] [place] [address] Performed By: #### 2 4362-6 ####[facility] LABORATORYCLIA [id number] [place] [address] [place] Potassium [Moles/Vol] 3.9 mmol/L Normal 3.7-5.1 [facility] Comment on above: Order Comment: Speci men Type: BLOOD SPECIMENOrdering Facility: [facility] Address: [address] [place] [address] Performed By: #### 2 4362-6 ####[facility] LABORATORYCLIA [id number] [place] [address] [place] Sodium [Moles/Vol] 143 mmol/L Normal 136-144 [facility] Comment on above: Order Comment: Speci men Type: BLOOD SPECIMENOrdering Facility: [facility] Address: [address] [place] [address] Performed By: #### 2 4362-6 ####[facility] LABORATORYCLIA [id number] [place] [id number] [place] Urea nitrogen [Mass/Vol] 24 mg/dL High 7-21 [facility] Comment on above: Order Comment: Speci men Type: BLOOD SPECIMENOrdering Facility: [facility] Address: [address] [place] [address] Performed By: #### 2 4362-6 ####[facility] LABORATORYCLIA [id number] [place] [address] [place] Basic metabolic 2000 panelon 01-13-2023 Anion gap [Moles/Vol] 9 mmol/L Normal 9-18 [facility] Comment on above: Order Comment: Speci men Type: BLOOD SPECIMENOrdering Facility: [facility] Address: [address] [place] [address] Performed By: #### 2 4320-2, ####[facility] LABORATORYCLIA [id number] [place] [address] [place] Calcium [Mass/Vol] 8.4 mg/dL Low 8.5-10.2 [facility] Comment on above: Order Comment: Speci men Type: BLOOD SPECIMENOrdering Facility: [facility] Address: [address] [place] [address] Performed By: #### 2 2, ####[facility] LABORATORYCLIA [id number] [place] [address] [place] Chloride [Moles/Vol] 100 mmol/L Normal 97-105 [facility] Comment on above: Order Comment: Speci men Type: BLOOD SPECIMENOrdering Facility: [facility] Address: [address] [place] [address] Performed By: #### 2 2, ####[facility] LABORATORYCLIA [id number] [place] [address] [place] CO2 [Moles/Vol] 33 mmol/L High 22-30 [facility] Comment on above: Order Comment: Speci men Type: BLOOD SPECIMENOrdering Facility: [facility] Address: [address] [place] [address] Performed By: #### 2 2, ####[facility] LABORATORYCLIA [id number] [place] [address] [place] Creatinine [Mass/Vol] 1.32 mg/dL High 0.58-0.96 [facility] Comment on above: Order Comment: Speci men Type: BLOOD SPECIMENOrdering Facility: [facility] Address: [address] [place] [address] Performed By: #### 2 4320-2, ####[facility] LABORATORYCLIA [id number] [place] [address] [place] ESTIMATED GLOMERULAR FILTRATION RATE 45 mL/min/1.73m??? Low >=60 [facility] Comment on above: Order Comment: Scott seals Type: BLOOD SPECIMENOrdering Facility: [facility] Address: [address] [place] [address] Result Comment: Petra mated Glomerular Filtration Rate (eGFR) is calculated using the 2020 CKD-EPI creatinine equation. This equation utilizes serum creatinine, sex, and age as parameters. The creatinine assay has traceable calibration to isotope dilution-mass spectrometry. Refer to KDIGO guidelines for clinical interpretation. In patients with unstable renal function, e.g. those with acute kidney injury, the eGFR may not accurately reflect actual GFR. Performed By: #### 2 4321-2, ####[facility] LABORATORYCLIA [id number] [place] [address] [place] Glucose [Mass/Vol] 149 mg/dL High 74-99 [facility] Comment on above: Order Comment: Scott seals Type: BLOOD SPECIMENOrdering Facility: [facility] Address: [address] [place] [address] Result Comment: The [place] Diabetes Association (ADA) provides guidance for cutoff values for fasting glucose and random glucose. The ADA defines fasting as no caloric intake for at least 8 hours. Fasting plasma glucose results between 100 to 125 mg/dL indicate increased risk for diabetes (prediabetes).Fasting plasma glucose results greater than or equal to 126 mg/dL meet the criteria for diagnosis of diabetes. In the absence of unequivocal hyperglycemia, results should be confirmed by repeat testing. In a patient with classic symptoms of hyperglycemia or hyperglycemic crisis, random plasma glucose results greater than or equal to 200 mg/dL meet the criteria for diagnosis of diabetes.Reference: Standards of Medical Care in Diabetes 2016, [place] [employer]. Diabetes Care. 2016.39(Suppl 1). Performed By: #### 2 4321-2, ####[facility] LABORATORYCLIA [id number] [place] [address] [place] Potassium [Moles/Vol] 3.8 mmol/L Normal 3.7-5.1 [facility] Comment on above: Order Comment: Speci men Type: BLOOD SPECIMENOrdering Facility: [facility] Address: [address] [place] [address] Performed By: #### 2 4321-2, ####[facility] LABORATORYCLIA [id number] [address] Sodium [Moles/Vol] 142 mmol/L Normal 136-144 [facility] Comment on above: Order Comment: Speci men Type: BLOOD SPECIMENOrdering Facility: [facility] Address: [address] [place] [address] Performed By: #### 2 432-2, ####[facility] LABORATORYCLIA [id number] [address] STATES [facility] Urea nitrogen [Mass/Vol] 33 mg/dL High 7-21 [facility] Comment on above: Order Comment: Speci men Type: BLOOD SPECIMENOrdering Facility: [facility] Address: [address] [place] [address] Performed By: #### 2 4320-2, ####[facility] LABORATORYCLIA [id number] [address] OF [facility] CBC panel Auto (Bld)on 01-13 Erythrocyte distribution width (RBC) [Ratio] 16.1 % High 11.5-15.0 [facility] Comment on above: Order Comment: Speci men Type: BLOOD SPECIMENOrdering Facility: [facility] Address: [address] [place] [address] Performed By: #### 5 8410-2 ####[facility] LABORATORYCLIA [id number] [address] Hematocrit (Bld) [Volume fraction] 32.3 % Low 36.0-46.0 [facility] Comment on above: Order Comment: Speci men Type: BLOOD SPECIMENOrdering Facility: [facility] Address: [address] [place] [address] Performed By: #### 5 8410-2 ####[facility] LABORATORYCLIA [id number] [address] STATES OF [facility] Hemoglobin (Bld) [Mass/Vol] 9.5 g/dL Low 11.5-15.5 [facility] Comment on above: Order Comment: Speci men Type: BLOOD SPECIMENOrdering Facility: [facility] Address: [address] [place] [address] Performed By: #### 5 8410-2 ####[facility] LABORATORYCLIA [id number] [address] MCH (RBC) [Entitic mass] 28.1 pg Normal 26.0-34.0 [facility] Comment on above: Order Comment: Speci men Type: BLOOD SPECIMENOrdering Facility: [facility] Address: [address] [place] [address] Performed By: #### 5 8410-2 ####[facility] LABORATORYCLIA [id number] [address] MCHC (RBC) [Mass/Vol] 29.4 g/dL Low 30.5-36.0 [facility] Comment on above: Order Comment: Speci men Type: BLOOD SPECIMENOrdering Facility: [facility] Address: [address] [place] [address] Performed By: #### 5 8410-2 ####[facility] LABORATORYCLIA [id number] [address] MCV (RBC) [Entitic vol] 95.6 fL Normal 80.0-100.0 [facility] Comment on above: Order Comment: Speci men Type: BLOOD SPECIMENOrdering Facility: [facility] Address: [address] [place] [address] Performed By: #### 5 8410-2 ####[facility] LABORATORYCLIA [id number] [address] Nucleated RBC (Bld) [#/Vol] 0.02 10*3/uL High <0.01 [facility] Comment on above: Order Comment: Speci men Type: BLOOD SPECIMENOrdering Facility: [facility] Address: [address] [place] [address] Performed By: #### 5 8410-2 ####[facility] LABORATORYCLIA [id number] [address] STATES [facility] Platelet mean volume (Bld) [Entitic vol] 8.8 fL Low 9.0-12.7 [facility] Comment on above: Order Comment: Speci men Type: BLOOD SPECIMENOrdering Facility: [facility] Address: [address] [place] [address] Performed By: #### 5 8410-2 ####[facility] LABORATORYCLIA [id number] [address] [place] Platelets (Bld) [#/Vol] 288 10*3/uL Normal 150-400 [facility] Comment on above: Order Comment: Speci men Type: BLOOD SPECIMENOrdering Facility: [facility] Address: [address] [place] [address] Performed By: #### 5 8410-2 ####[facility] LABORATORYCLIA [id number] [place] [address] [place] RBC (Bld) [#/Vol] 3.38 10*6/uL Low 3.90-5.20 [facility] Comment on above: Order Comment: Speci men Type: BLOOD SPECIMENOrdering Facility: [facility] Address: [address] [place] [address] Performed By: #### 5 8410-2 ####[facility] LABORATORYCLIA [id number] [address] [place] WBC (Bld) [#/Vol] 6.38 10*3/uL Normal 3.70-11.00 [facility] Comment on above: Order Comment: Speci men Type: BLOOD SPECIMENOrdering Facility: [facility] Address: [address] [place] [address] Performed By: #### 5 8410-2 ####[facility] LABORATORYCLIA [id number] [address] [place] ED NOTEon 01-13-2023 ED NOTE HNO ID: [id number] Author: Nilsa Oneill RN Service: Emergency Medicine Author Type: Registered Nurse Type: ED Notes Filed: 01/13/2023 4:34 AM Note Text: Rc; ready to go up Normal [facility] ED NOTE HNO ID: [id number] Author: Nilsa Oneill RN Service: Emergency Medicine Author Type: Registered Nurse Type: ED Notes Filed: 01/13/2023 3:56 AM Note Text: 1x attempt at report Normal [facility] Magnesium SerPl-mCncon 01-13 Magnesium [Mass/Vol] 1.8 mg/dL Normal 1.7-2.3 [facility] Comment on above: Order Comment: Speci men Type: BLOOD SPECIMENOrdering Facility: [facility] Address: [address] [place] [address] Performed By: #### 2 4321-2, 43315-3 ####[facility] LABORATORYCLIA [id number] [address] [place] NURSING PROGon 01-13-2023 NURSING PROG Normal [facility] ALLIED HEALTHon 01-12-2023 ALLIED HEALTH Normal [facility] CBC W Auto Differential pane l (Bld)on 01-12-2023 Basophils (Bld) [#/Vol] 0.06 10*3/uL Normal <0.11 [facility] Comment on above: Order Comment: Speci men Type: BLOOD SPECIMENOrdering Facility: [facility] Address: [address] [place] [address] Performed By: #### 5 7021-8 ####[facility] LABORATORYCLIA [id number] [address] [place] Basophils/100 WBC (Bld) 0.7 % Normal A [facility] Comment on above: Order Comment: Speci men Type: BLOOD SPECIMENOrdering Facility: [facility] Address: [address] [place] [address] Performed By: #### 5 7021-8 ####[facility] LABORATORYCLIA [id number] [address] Differential cell count method Nom (Bld) Auto Normal [facility] Comment on above: Order Comment: Speci men Type: BLOOD SPECIMENOrdering Facility: [facility] Address: [address] [place] [address] Performed By: #### 5 7021-8 ####[facility] LABORATORYCLIA [id number] [address] [place] Eosinophils (Bld) [#/Vol] 0.17 10*3/uL Normal <0.46 [facility] Comment on above: Order Comment: Speci men Type: BLOOD SPECIMENOrdering Facility: [facility] Address: [address] [place] [address] Performed By: #### 5 7021-8 ####[facility] LABORATORYCLIA [id number] [address] Eosinophils/100 WBC (Bld) 2.0 % Normal [facility] Comment on above: Order Comment: Speci men Type: BLOOD SPECIMENOrdering Facility: [facility] Address: [address] [place] [address] Performed By: #### 5 7021-8 ####[facility] LABORATORYCLIA [id number] [address] Erythrocyte distribution width (RBC) [Ratio] 16.3 % High 11.5-15.0 [facility] Comment on above: Order Comment: Speci men Type: BLOOD SPECIMENOrdering Facility: [facility] Address: [address] [place] [address] Performed By: #### 5 7021-8 ####[facility] LABORATORYCLIA [id number] [address] Hematocrit (Bld) [Volume fraction] 30.1 % Low 36.0-46.0 [facility] Comment on above: Order Comment: Speci men Type: BLOOD SPECIMENOrdering Facility: [facility] Address: [address] [place] [address] Performed By: #### 5 7021-8 ####[facility] LABORATORYCLIA [id number] [place] [address] [place] Hemoglobin (Bld) [Mass/Vol] 8.7 g/dL Low 11.5-15.5 [facility] Comment on above: Order Comment: Speci men Type: BLOOD SPECIMENOrdering Facility: [facility] Address: [address] [place] [address] Performed By: #### 5 7021-8 ####[facility] LABORATORYCLIA [id number] [place] [address] [place] Immature granulocytes (Bld) [#/Vol] 0.40 10*3/uL High <0.10 [facility] Comment on above: Order Comment: Speci men Type: BLOOD SPECIMENOrdering Facility: [facility] Address: [address] [place] [address] Performed By: #### 5 7021-8 ####[facility] LABORATORYCLIA [id number] [address] [place] Immature granulocytes/100 WBC (Bld) 4.7 % Normal [facility] Comment on above: Order Comment: Speci men Type: BLOOD SPECIMENOrdering Facility: [facility] Address: [address] [place] [address] Performed By: #### 5 7021-8 ####[facility] LABORATORYCLIA [id number] [address] [place] Lymphocytes (Bld) [#/Vol] 2.14 10*3/uL Normal 1.00-4.00 [facility] Comment on above: Order Comment: Speci men Type: BLOOD SPECIMENOrdering Facility: [facility] Address: [address] [place] [address] Performed By: #### 5 7021-8 ####[facility] LABORATORYCLIA [id number] [address] [place] Lymphocytes/100 WBC (Bld) 25.1 % Normal [facility] Comment on above: Order Comment: Speci men Type: BLOOD SPECIMENOrdering Facility: [facility] Address: [address] [place] [address] Performed By: #### 5 7021-8 ####[facility] LABORATORYCLIA [id number] [address] MCH (RBC) [Entitic mass] 28.1 pg Normal 26.0-34.0 [facility] Comment on above: Order Comment: Speci men Type: BLOOD SPECIMENOrdering Facility: [facility] Address: [address] [address] Performed By: #### 5 7021-8 ####[facility] LABORATORYCLIA [id number] [address] MCHC (RBC) [Mass/Vol] 28.9 g/dL Low 30.5-36.0 [facility] Comment on above: Order Comment: Speci men Type: BLOOD SPECIMENOrdering Facility: [facility] Address: [address] [place] [address] Performed By: #### 5 7021-8 ####[facility] LABORATORYCLIA [id number] [address] MCV (RBC) [Entitic vol] 97.1 fL Normal 80.0-100.0 [facility] Comment on above: Order Comment: Speci men Type: BLOOD SPECIMENOrdering Facility: [facility] Address: [address] [address] Performed By: #### 5 7021-8 ####[facility] LABORATORYCLIA [id number] [address] Monocytes (Bld) [#/Vol] 0.93 10*3/uL High <0.87 [facility] Comment on above: Order Comment: Speci men Type: BLOOD SPECIMENOrdering Facility: [facility] Address: [address] [place] [address] Performed By: #### 5 7021-8 ####[facility] LABORATORYCLIA [id number] [address] [place] Monocytes/100 WBC (Bld) 10.9 % Normal A [facility] Comment on above: Order Comment: Speci men Type: BLOOD SPECIMENOrdering Facility: [facility] Address: [address] [place] [address] Performed By: #### 5 7021-8 ####[facility] LABORATORYCLIA [id number] [place] [address] [place] Neutrophils (Bld) [#/Vol] 4.83 10*3/uL Normal 1.45-7.50 [facility] Comment on above: Order Comment: Speci men Type: BLOOD SPECIMENOrdering Facility: [facility] Address: [address] [place] [address] Performed By: #### 5 7021-8 ####[facility] LABORATORYCLIA [id number] [address] [place] Neutrophils/100 WBC (Bld) 56.6 % Normal [facility] Comment on above: Order Comment: Speci men Type: BLOOD SPECIMENOrdering Facility: [facility] Address: [address] [place] [address] Performed By: #### 5 7021-8 ####[facility] LABORATORYCLIA [id number] [place] [address] [place] Nucleated RBC (Bld) [#/Vol] 0.04 10*3/uL High <0.01 [facility] Comment on above: Order Comment: Speci men Type: BLOOD SPECIMENOrdering Facility: [facility] Address: [address] [place] [address] Performed By: #### 5 7021-8 ####[facility] LABORATORYCLIA [id number] [address] [place] Nucleated RBC/100 WBC (Bld) [Ratio] 0.5 /100 WBC Normal [facility] Comment on above: Order Comment: Speci men Type: BLOOD SPECIMENOrdering Facility: [facility] Address: [address] [place] [address] Performed By: #### 5 7021-8 ####[facility] LABORATORYCLIA [id number] [address] STATES [facility] Platelet mean volume (Bld) [Entitic vol] 8.8 fL Low 9.0-12.7 [facility] Comment on above: Order Comment: Speci men Type: BLOOD SPECIMENOrdering Facility: [facility] Address: [address] [place] [address] Performed By: #### 5 7021-8 ####[facility] LABORATORYCLIA [id number] [address] [place] Platelets (Bld) [#/Vol] 266 10*3/uL Normal 150-400 [facility] Comment on above: Order Comment: Speci men Type: BLOOD SPECIMENOrdering Facility: [facility] Address: [address] [place] [address] Performed By: #### 5 7021-8 ####[facility] LABORATORYCLIA [id number] [address] RBC (Bld) [#/Vol] 3.10 10*6/uL Low 3.90-5.20 [facility] Comment on above: Order Comment: Speci men Type: BLOOD SPECIMENOrdering Facility: [facility] Address: [address] [place] [address] Performed By: #### 5 7021-8 ####[facility] LABORATORYCLIA [id number] [address] [place] WBC (Bld) [#/Vol] 8.53 10*3/uL Normal 3.70-11.00 [facility] Comment on above: Order Comment: Speci men Type: BLOOD SPECIMENOrdering Facility: [facility] Address: [address] [place] [address] Performed By: #### 5 7021-8 ####[facility] LABORATORYCLIA [id number] [address] [place] Comprehensive metabolic 2000 panelon 01-12-2023 Albumin [Mass/Vol] 2.7 g/dL Low 3.9-4.9 [facility] Comment on above: Order Comment: Speci men Type: BLOOD SPECIMENOrdering Facility: [facility] Address: [address] [place] [address] Performed By: #### 2 4323-8, 17384-3, 81448-4 ####[facility] LABORATORYCLIA [id number] [address] OF [facility] ALP [Catalytic activity/Vol] 58 U/L Normal 34-123 [facility] Comment on above: Order Comment: Speci men Type: BLOOD SPECIMENOrdering Facility: [facility] Address: [address] [place] [address] Performed By: #### 2 4323-8, , 14815-3 ####[facility] LABORATORYCLIA [id number] [address] STATES OF [facility] ALT With P-5'-P [Catalytic activity/Vol] 14 U/L Normal 7-38 [facility] Comment on above: Order Comment: Speci men Type: BLOOD SPECIMENOrdering Facility: [facility] Address: [address] [place] [address] Performed By: #### 2 4323-8, , 71353-4 ####[facility] LABORATORYCLIA [id number] [address] Anion gap [Moles/Vol] 10 mmol/L Normal 9-18 [facility] Comment on above: Order Comment: Speci men Type: BLOOD SPECIMENOrdering Facility: [facility] Address: [address] [place] [address] Performed By: #### 2 4323-8, , 93035-5 ####[facility] LABORATORYCLIA [id number] [address] STATES OF [facility] AST With P-5'-P [Catalytic activity/Vol] 14 U/L Normal 13-35 [facility] Comment on above: Order Comment: Speci men Type: BLOOD SPECIMENOrdering Facility: [facility] Address: [address] [place] [address] Performed By: #### 2 4323-8, 58961-3, 59266-4 ####[facility] LABORATORYCLIA [id number] [address] STATES OF [facility] Bilirubin [Mass/Vol] 0.3 mg/dL Normal 0.2-1.3 [facility] Comment on above: Order Comment: Speci men Type: BLOOD SPECIMENOrdering Facility: [facility] Address: [address] [place] [address] Performed By: #### 2 4323-8, 90687-9, 04880-4 ####[facility] LABORATORYCLIA [id number] [place] [address] [place] Calcium [Mass/Vol] 8.4 mg/dL Low 8.5-10.2 [facility] Comment on above: Order Comment: Speci men Type: BLOOD SPECIMENOrdering Facility: [facility] Address: [address] [place] [address] Performed By: #### 2 4323-8, , 46240-2 ####[facility] LABORATORYCLIA [id number] [place] [address] [place] Chloride [Moles/Vol] 100 mmol/L Normal 97-105 [facility] Comment on above: Order Comment: Speci men Type: BLOOD SPECIMENOrdering Facility: [facility] Address: [address] [place] [address] Performed By: #### 2 4323-8, 40859-2, 39214-3 ####[facility] LABORATORYCLIA [id number] [place] [address] [place] CO2 [Moles/Vol] 31 mmol/L High 22-30 [facility] Comment on above: Order Comment: Speci men Type: BLOOD SPECIMENOrdering Facility: [facility] Address: [address] [place] [address] Performed By: #### 2 4323-8, 03214-0, 00814-5 ####[facility] LABORATORYCLIA [id number] [place] [address] [place] Creatinine [Mass/Vol] 1.41 mg/dL High 0.58-0.96 [facility] Comment on above: Order Comment: Scott seals Type: BLOOD SPECIMENOrdering Facility: [facility] Address: [address] [place] [address] Performed By: #### 2 4323-8, 17103-6, 37072-3 ####[facility] LABORATORYCLIA [id number] [place] [id number] [facility] ESTIMATED GLOMERULAR FILTRATION RATE 41 mL/min/1.73m??? Low >=60 [facility] Comment on above: Order Comment: Scott seals Type: BLOOD SPECIMENOrdering Facility: [facility] Address: [address] [place] [address] Result Comment: Petra mated Glomerular Filtration Rate (eGFR) is calculated using the 2020 CKD-EPI creatinine equation. This equation utilizes serum creatinine, sex, and age as parameters. The creatinine assay has traceable calibration to isotope dilution-mass spectrometry. Refer to KDIGO guidelines for clinical interpretation. In patients with unstable renal function, e.g. those with acute kidney injury, the eGFR may not accurately reflect actual GFR. Performed By: #### 2 4323-8, 11172-5, 47451-0 ####[facility] LABORATORYCLIA [id number] [address] [place] Glucose [Mass/Vol] 145 mg/dL High 74-99 [facility] Comment on above: Order Comment: Scott seals Type: BLOOD SPECIMENOrdering Facility: [facility] Address: [address] [place] [address] Result Comment: The [place] Diabetes Association (ADA) provides guidance for cutoff values for fasting glucose and random glucose. The ADA defines fasting as no caloric intake for at least 8 hours. Fasting plasma glucose results between 100 to 125 mg/dL indicate increased risk for diabetes (prediabetes).Fasting plasma glucose results greater than or equal to 126 mg/dL meet the criteria for diagnosis of diabetes. In the absence of unequivocal hyperglycemia, results should be confirmed by repeat testing. In a patient with classic symptoms of hyperglycemia or hyperglycemic crisis, random plasma glucose results greater than or equal to 200 mg/dL meet the criteria for diagnosis of diabetes.Reference: Standards of Medical Care in Diabetes 2016, [place] [employer]. Diabetes Care. 2016.39(Suppl 1). Performed By: #### 2 4323-8, 90534-6, 82254-2 ####[facility] LABORATORYCLIA [id number] [place] [address] [place] Potassium [Moles/Vol] 3.9 mmol/L Normal 3.7-5.1 [facility] Comment on above: Order Comment: Speci men Type: BLOOD SPECIMENOrdering Facility: [facility] Address: [address] [place] [address] Performed By: #### 2 4323-8, , 18616-4 ####[facility] LABORATORYCLIA [id number] [place] [address] [place] Protein [Mass/Vol] 4.7 g/dL Low 6.3-8.0 [facility] Comment on above: Order Comment: Speci men Type: BLOOD SPECIMENOrdering Facility: [facility] Address: [address] [address] Performed By: #### 2 4323-8, , 06003-0 ####[facility] LABORATORYCLIA [id number] [place] [address] [place] Sodium [Moles/Vol] 141 mmol/L Normal 136-144 [facility] Comment on above: Order Comment: Speci men Type: BLOOD SPECIMENOrdering Facility: [facility] Address: [address] [address] Performed By: #### 2 4323-8, , 80411-4 ####[facility] LABORATORYCLIA [id number] [place] [address] [place] Urea nitrogen [Mass/Vol] 33 mg/dL High 7-21 [facility] Comment on above: Order Comment: Speci men Type: BLOOD SPECIMENOrdering Facility: [facility] Address: [address] Performed By: #### 2 4323-8, 50236-5, 79620-4 ####[facility] LABORATORYCLIA [id number] [place] [address] [place] ECG COMPLETEon 01-12-2023 ECG COMPLETE Normal [facility] ED NOTEon 01-12-2023 ED NOTE Normal [facility] ED NOTE HNO ID: [id number] Author: Mariajose Swain RN Service: ? Author Type: Registered Nurse Type: ED Notes Filed: 01/12/2023 9:40 PM Note Text: Bed: 15-ED Expected date: Expected time: Means of arrival: Comments: Room 36 Normal [facility] ED NOTE HNO ID: [id number] Author: Allison Gaytan RN Service: Emergency Medicine Author Type: Registered Nurse Type: ED Notes Filed: 01/12/2023 9:31 PM Note Text: LIP aware of BP. Normal [facility] ED NOTE HNO ID: [id number] Author: Beatrice Fulton RN Service: Emergency Medicine Author Type: Registered Nurse Type: ED Notes Filed: 01/12/2023 2:00 PM Note Text: Report given to ROYCE Cheney [facility] ED NOTE HNO ID: [id number] Author: Baetrice Fulton RN Service: Emergency Medicine Author Type: Registered Nurse Type: ED Notes Filed: 01/12/2023 1:20 PM Note Text: This RN to assume temporary care of pt @ this time to cover lunch of primary RN Normal [facility] ED NOTE Normal [facility] ED PROV NOTEon 01-12-2023 ED PROV NOTE Normal [facility] ED PROV NOTE Normal [facility] ED PROV NOTE Normal [facility] HIGH SENSITIVITY TROPONIN T (INITIAL)on 01-12-2023 HIGH SENSITIVITY MARIE 97 ng/L High <12 [facility] Comment on above: Order Comment: Speci men Type: BLOOD SPECIMENOrdering Facility: [facility] Address: [address] [place] [id number] Result Comment: When assessing risk for acute coronary syndromes: In patients undergoing blood draw greater than or equal to 2 hours from symptom onset, with history of very low to moderate risk and non-ischemic ECG, an initial hs-Troponin T less than 12 ng/L AND a 1 hour delta hs-Troponin T less than 3 ng/L should be considered very low risk for 30 day MACE. Performed By: #### L [id number] ####[facility] LABORATORYCLIA [id number] [address] HIGH SENSITIVITY TROPONIN T (SECOND)on 01-12-2023 HIGH SENSITIVITY MARIE 93 ng/L High <12 [facility] Comment on above: Order Comment: Speci men Type: BLOOD SPECIMENOrdering Facility: [facility] Address: [address] [place] [address] Result Comment: When assessing risk for acute coronary syndromes: In patients undergoing blood draw greater than or equal to 2 hours from symptom onset, with history of very low to moderate risk and non-ischemic ECG, an initial hs-Troponin T less than 12 ng/L AND a 1 hour delta hs-Troponin T less than 3 ng/L should be considered very low risk for 30 day MACE. Performed By: #### L [id number] ####[facility] LABORATORYCLIA [id number] [address] HIGH SENSITIVITY TROPONIN T (THIRD) 3 HRS AFTER INITIALon 01-12-2023 HIGH SENSITIVITY MARIE 91 ng/L High <12 [facility] Comment on above: Order Comment: Scott seals Type: BLOOD SPECIMENOrdering Facility: [facility] Address: [address] [place] [address] Result Comment: When assessing risk for acute coronary syndromes: In patients undergoing blood draw greater than or equal to 2 hours from symptom onset, with history of very low to moderate risk and non-ischemic ECG, an initial hs-Troponin T less than 12 ng/L AND a 1 hour delta hs-Troponin T less than 3 ng/L should be considered very low risk for 30 day MACE. Performed By: #### L [id number] ####[facility] LABORATORYCLIA [id number] [address] [place] HISTORY PHYSICALon HISTORY PHYSICAL Normal [facility] Magnesium SerPl-mCncon 01-12 Magnesium [Mass/Vol] 1.4 mg/dL Low 1.7-2.3 [facility] Comment on above: Order Comment: Speci men Type: BLOOD SPECIMENOrdering Facility: [facility] Address: [address] [place] [address] Performed By: #### 2 4323-8, 54704-4, 88364-2 ####[facility] LABORATORYCLIA [id number] [address] [facility] 01-12 Natriuretic peptide.B prohormone N-Terminal [Mass/Vol] 683 pg/mL High <125 [facility] Comment on above: Order Comment: Speci men Type: BLOOD SPECIMENOrdering Facility: [facility] Address: [address] [place] [address] Performed By: #### 2 4323-8, 96385-7, 47401-2 ####[facility]ITALCLIA [id number] [address] OF [facility] SARS-CoV-2 RNA Resp Ql IGGY+p robeon 01-12-2023 SARS-CoV-2 (COVID-19) RNA IGGY+probe Ql (Resp) COVID 19 RESULT: Not detected The method used is RT-PCR or an equivalent NAAT method. Reference Range(the expected result in uninfected individuals): Not detected Normal [facility] Comment on above: Performed By: #### 9 4500-6 ####[facility] LABORATORYCLIA [id number] [address] Urinalysis complete pnl Uron 01-12-2023 Urinalysis complete panel (U) Abnormal [facility] Comment on above: Order Comment: Speci men Type: URINE SPECIMENOrdering Facility: [facility] Address: [address] [place] [address] Performed By: #### 2 4356-8 ####[facility] LABORATORYCLIA [id number] [address] OF [place] XR CHEST 1V FRONTALon 2022 XR CHEST 1V FRONTAL Normal [facility] Basophil percentageOrdered B y: Lucy Quick on 01-10-2023 Chloride [Moles/Vol] 103 mmol/L 98-107 [facility] Glucose [Mass/Vol] 98 mg/dL 74-106 [facility] Potassium [Moles/Vol] 4.2 mmol/L 3.5-5.1 [facility] Sodium [Moles/Vol] 145 mmol/L 136-145 [facility] WBC (Bld) [#/Vol] 7.7 10*3/uL 4.4-11.0 [facility] Blood erythrocytes count (nu mber/volume)Ordered By: Lucy Quick on 01-10-2023 RBC (Bld) [#/Vol] 3.08 10*6/uL 4.2-5.4 [facility] Blood hemoglobin measurement (mass/volume)Ordered By: Lucy Quick on 01-10-2023 Hemoglobin (Bld) [Mass/Vol] 8.9 g/dL 12.0-15.0 [facility] Blood platelet mean volumeOr dered By: Lucy Quick on 01-10-2023 Platelet mean volume (Bld) [Entitic vol] 8.9 fL 6.2-12.0 [facility] Determination of erythrocyte mean corpuscular volume (MCV)Ordered By: Lucy Quick on 01-10-2023 MCV (RBC) [Entitic vol] 91.9 fL 81-99 [facility] Hematocrit Auto (Bld) [Volum e fraction]Ordered By: Lucy Quick on 01-10-2023 Hematocrit (Bld) [Volume fraction] 28.3 % 37-47 [facility] Laboratory - Chemistry and C hemistry - challengeOrdered By: Lucy Quick on 01-10-2023 CO2 [Moles/Vol] 34.0 mmol/L 21.0-32.0 [facility] Urea nitrogen/Creatinine [Mass ratio] 23.5 mg/mg 10-20 [facility] Laboratory - Hematology and Cell countsOrdered By: Lucy Quick on 01-10-2023 Erythrocyte distribution width (RBC) [Entitic vol] 51.8 fL 35.1-43.9 [facility] Erythrocyte distribution width (RBC) [Ratio] 15.6 % 11.6-14.6 [facility] MCH (RBC) [Entitic mass] 28.9 pg 27.0-32.0 [facility] MCHC Auto (RBC) [Mass/Vol]Or dered By: Lucy Quick on 01-10-2023 MCHC (RBC) [Mass/Vol] 31.4 g/dL 32-36 [facility] No Panel InformationOrdered By: Lucy Quick on 01-10-2023 Estimated GFR (MDRD) Amer 52 mL/min >60 [facility] Comment on above: GFR Calc Estimated GFR (MDRD) Non-Af Amer 43 mL/min >60 [facility] Comment on above: Non- GFR Calc Platelets bldOrdered By: Josee Quick on 01-10-2023 Platelets (Bld) [#/Vol] 286 10*3/uL 150-450 [facility] Serum or plasma calcium catracho urement (mass/volume)Ordered By: Lucy Quick on 01-10-2023 Calcium [Mass/Vol] 8.6 mg/dL 8.5-10.1 [facility] Serum or plasma creatinine m easurement (mass/volume)Ordered By: Lucy Quick on 01-10-2023 Creatinine [Mass/Vol] 1.32 mg/dL 0.55-1.02 [facility] Comment on above: The validity of the calculated GFR & GFRAA in patients over 70 years has not been determined. Clinical correlation is essential. Serum or plasma urea nitroge n measurement (mass/volume)Ordered By: Lucy Quick on 01-10-2023 Urea nitrogen [Mass/Vol] 31 mg/dL 7-18 [facility] Thin prep Papanicolaou smear with manual screeningOrdered By: Lucy Quick on 01-10-2023 Thin prep Papanicolaou smear with manual screening 8 5-15 [facility] Basophil percentageOrdered B y: Lucy Quick on 01-05-2023 Chloride [Moles/Vol] 103 mmol/L 98-107 [facility] Glucose [Mass/Vol] 87 mg/dL 74-106 [facility] Potassium [Moles/Vol] 4.5 mmol/L 3.5-5.1 [facility] Sodium [Moles/Vol] 142 mmol/L 136-145 [facility] Laboratory - Chemistry and C hemistry - challengeOrdered By: Lucy Quick on 01-05-2023 CO2 [Moles/Vol] 31.0 mmol/L 21.0-32.0 [facility] Urea nitrogen/Creatinine [Mass ratio] 29.9 mg/mg 10-20 [facility] No Panel InformationOrdered By: Lucy Quick on 01-05-2023 Estimated GFR (MDRD) Amer 50 mL/min >60 [facility] Comment on above: GFR Calc Estimated GFR (MDRD) Non-Af Amer 41 mL/min >60 [facility] Comment on above: Non- GFR Calc Serum or plasma calcium catracho urement (mass/volume)Ordered By: Lucy Quick on 01-05-2023 Calcium [Mass/Vol] 8.8 mg/dL 8.5-10.1 [facility] Serum or plasma creatinine m easurement (mass/volume)Ordered By: Lucy Quick on 01-05-2023 Creatinine [Mass/Vol] 1.37 mg/dL 0.55-1.02 [facility] Comment on above: The validity of the calculated GFR & GFRAA in patients over 70 years has not been determined. Clinical correlation is essential. Serum or plasma urea nitroge n measurement (mass/volume)Ordered By: Lucy Quick on 01-05-2023 Urea nitrogen [Mass/Vol] 41 mg/dL 7-18 [facility] Thin prep Papanicolaou smear with manual screeningOrdered By: Lucy Quick on 01-05-2023 Thin prep Papanicolaou smear with manual screening 8 5-15 [facility] ALLIED HEALTHon 01-02-2023 ALLIED HEALTH Normal [facility] Basophil percentageOrdered B y: Lucy Quick on 01-02-2023 WBC (Bld) [#/Vol] 7.0 10*3/uL 4.4-11.0 [facility] Blood erythrocytes count (nu mber/volume)Ordered By: Lucy Quick on 01-02-2023 RBC (Bld) [#/Vol] 3.15 10*6/uL 4.2-5.4 [facility] Blood hemoglobin measurement (mass/volume)Ordered By: Lucy Quick on 01-02-2023 Hemoglobin (Bld) [Mass/Vol] 9.4 g/dL 12.0-15.0 [facility] Blood platelet mean volumeOr dered By: Lucy Quick on 01-02-2023 Platelet mean volume (Bld) [Entitic vol] 9.2 fL 6.2-12.0 [facility] CBC W Auto Differential pane l (Bld)on 01-02-2023 Anisocytosis Ql (Bld) Present Normal [facility] Comment on above: Order Comment: Speci men Type: BLOOD SPECIMENOrdering Facility: [facility] Address: [address] [place] [address] Performed By: #### 5 7021-8 ####[facility] LABORATORYCLIA [id number] [address] Basophils (Bld) [#/Vol] 0.00 10*3/uL Normal <0.11 [facility] Comment on above: Order Comment: Speci men Type: BLOOD SPECIMENOrdering Facility: [facility] Address: [address] [place] [address] Performed By: #### 5 7021-8 ####[facility] LABORATORYCLIA [id number] [address] Basophils/100 WBC (Bld) 0.0 % Normal [facility] Comment on above: Order Comment: Speci men Type: BLOOD SPECIMENOrdering Facility: [facility] Address: [address] [address] Performed By: #### 5 7021-8 ####[facility] LABORATORYCLIA [id number] [address] Differential cell count method Nom (Bld) Manual Normal [facility] Comment on above: Order Comment: Speci men Type: BLOOD SPECIMENOrdering Facility: [facility] Address: [address] [address] Performed By: #### 5 7021-8 ####[facility]ORATORYCLIA [id number] [address] [place] Eosinophils (Bld) [#/Vol] 0.00 10*3/uL Normal <0.46 [facility] Comment on above: Order Comment: Speci men Type: BLOOD SPECIMENOrdering Facility: [facility] Address: [address] [place] [address] Performed By: #### 5 7021-8 ####[facility] LABORATORYCLIA [id number] [address] [place] Eosinophils/100 WBC (Bld) 0.0 % Normal [facility] Comment on above: Order Comment: Speci men Type: BLOOD SPECIMENOrdering Facility: [facility] Address: [address] [place] [address] Performed By: #### 5 7021-8 ####[facility] LABORATORYCLIA [id number] [address] STATES [facility] Erythrocyte distribution width (RBC) [Ratio] 16.2 % High 11.5-15.0 [facility] Comment on above: Order Comment: Speci men Type: BLOOD SPECIMENOrdering Facility: [facility] Address: [address] [place] [address] Performed By: #### 5 7021-8 ####[facility] LABORATORYCLIA [id number] [address] [place] Hematocrit (Bld) [Volume fraction] 31.8 % Low 36.0-46.0 [facility] Comment on above: Order Comment: Speci men Type: BLOOD SPECIMENOrdering Facility: [facility] Address: [address] [place] [address] Performed By: #### 5 7021-8 ####[facility] LABORATORYCLIA [id number] [address] [place] Hemoglobin (Bld) [Mass/Vol] 9.2 g/dL Low 11.5-15.5 [facility] Comment on above: Order Comment: Speci men Type: BLOOD SPECIMENOrdering Facility: [facility] Address: [address] [address] Performed By: #### 5 7021-8 ####[facility] LABORATORYCLIA [id number] [address] Lymphocytes (Bld) [#/Vol] 1.41 10*3/uL Normal 1.00-4.00 [facility] Comment on above: Order Comment: Speci men Type: BLOOD SPECIMENOrdering Facility: [facility] Address: [address] [place] [address] Performed By: #### 5 7021-8 ####[facility] LABORATORYCLIA [id number] [address] Lymphocytes/100 WBC (Bld) 19.0 % Normal [facility] Comment on above: Order Comment: Speci men Type: BLOOD SPECIMENOrdering Facility: [facility] Address: [address] [place] [address] Performed By: #### 5 7021-8 ####[facility] LABORATORYCLIA [id number] [address] STATES OF [facility] MCH (RBC) [Entitic mass] 28.0 pg Normal 26.0-34.0 [facility] Comment on above: Order Comment: Speci men Type: BLOOD SPECIMENOrdering Facility: [facility] Address: [address] [place] [address] Performed By: #### 5 7021-8 ####[facility] LABORATORYCLIA [id number] [address] MCHC (RBC) [Mass/Vol] 28.9 g/dL Low 30.5-36.0 [facility] Comment on above: Order Comment: Speci men Type: BLOOD SPECIMENOrdering Facility: [facility] Address: [address] [place] [address] Performed By: #### 5 7021-8 ####[facility] LABORATORYCLIA [id number] [address] MCV (RBC) [Entitic vol] 96.7 fL Normal 80.0-100.0 [facility] Comment on above: Order Comment: Speci men Type: BLOOD SPECIMENOrdering Facility: [facility] Address: [address] [place] [address] Performed By: #### 5 7021-8 ####[facility]ORATORYCLIA [id number] [address] Metamyelocytes/100 WBC (Bld) 3.0 % Normal [facility] Comment on above: Order Comment: Speci men Type: BLOOD SPECIMENOrdering Facility: [facility] Address: [address] [place] [address] Performed By: #### 5 7021-8 ####[facility]ORATORYCLIA [id number] [address] Monocytes (Bld) [#/Vol] 0.44 10*3/uL Normal <0.87 [facility] Comment on above: Order Comment: Speci men Type: BLOOD SPECIMENOrdering Facility: [facility] Address: [address] [place] [address] Performed By: #### 5 7021-8 ####[facility]ORATORYCLIA [id number] [address] Monocytes/100 WBC (Bld) 6.0 % Normal [facility] Comment on above: Order Comment: Speci men Type: BLOOD SPECIMENOrdering Facility: [facility] Address: [address] [place] [address] Performed By: #### 5 7021-8 ####[facility]ORATORYCLIA [id number] [address] MYELO% 1.0 % Normal [facility] Comment on above: Order Comment: Speci men Type: BLOOD SPECIMENOrdering Facility: [facility] Address: [address] [place] [address] Performed By: #### 5 7021-8 ####[facility]ORATORYCLIA [id number] [place] [address] [place] Neutrophils (Bld) [#/Vol] 5.25 10*3/uL Normal 1.45-7.50 [facility] Comment on above: Order Comment: Speci men Type: BLOOD SPECIMENOrdering Facility: [facility] Address: [address] [address] Performed By: #### 5 7021-8 ####[facility]ATORYCLIA [id number] [address] [place] Neutrophils/100 WBC (Bld) 71.0 % Normal [facility] Comment on above: Order Comment: Speci men Type: BLOOD SPECIMENOrdering Facility: [facility] Address: [address] [place] [address] Performed By: #### 5 7021-8 ####[facility] LABORATORYCLIA [id number] [address] [place] Nucleated RBC (Bld) [#/Vol] 10*3/uL Normal <0.01 [facility] Comment on above: Order Comment: Speci men Type: BLOOD SPECIMENOrdering Facility: [facility] Address: [address] [place] [address] Performed By: #### 5 7021-8 ####[facility] LABORATORYCLIA [id number] [address] Nucleated RBC/100 WBC (Bld) [Ratio] 0.0 /100 WBC Normal [facility] Comment on above: Order Comment: Speci men Type: BLOOD SPECIMENOrdering Facility: [facility] Address: [address] [place] [address] Performed By: #### 5 7021-8 ####[facility] LABORATORYCLIA [id number] [address] Ovalocytes LM Ql (Bld) Few Normal [facility] Comment on above: Order Comment: Speci men Type: BLOOD SPECIMENOrdering Facility: [facility] Address: [address] [place] [address] Performed By: #### 5 7021-8 ####[facility] LABORATORYCLIA [id number] [address] [place] Platelet mean volume (Bld) [Entitic vol] 8.5 fL Low 9.0-12.7 [facility] Comment on above: Order Comment: Speci men Type: BLOOD SPECIMENOrdering Facility: [facility] Address: [address] [place] [address] Performed By: #### 5 7021-8 ####[facility] LABORATORYCLIA [id number] [address] [place] Platelets (Bld) [#/Vol] 343 10*3/uL Normal 150-400 [facility] Comment on above: Order Comment: Speci men Type: BLOOD SPECIMENOrdering Facility: [facility] Address: [address] [place] [address] Performed By: #### 5 7021-8 ####[facility] LABORATORYCLIA [id number] [address] [place] Platelets Estimate (Bld) [#/Vol] Adequate Normal [facility] Comment on above: Order Comment: Speci men Type: BLOOD SPECIMENOrdering Facility: [facility] Address: [address] [place] [address] Performed By: #### 5 7021-8 ####[facility] LABORATORYCLIA [id number] [address] OF [place] Polychromasia LM Ql (Bld) Slight Normal [facility] Comment on above: Order Comment: Speci men Type: BLOOD SPECIMENOrdering Facility: [facility] Address: [address] [place] [address] Performed By: #### 5 7021-8 ####[facility] LABORATORYCLIA [id number] [address] [place] RBC (Bld) [#/Vol] 3.29 10*6/uL Low 3.90-5.20 [facility] Comment on above: Order Comment: Speci men Type: BLOOD SPECIMENOrdering Facility: [facility] Address: [address] [place] [address] Performed By: #### 5 7021-8 ####[facility] LABORATORYCLIA [id number] [address] RBC FRAGMENTS Few Abnormal None Seen [facility] Comment on above: Order Comment: Speci men Type: BLOOD SPECIMENOrdering Facility: [facility] Address: [address] [place] [address] Performed By: #### 5 7021-8 ####[facility] LABORATORYCLIA [id number] [address] RED CELL MORPH Reviewed: see result s of individual morphologies Normal [facility] Comment on above: Order Comment: Speci men Type: BLOOD SPECIMENOrdering Facility: [facility] Address: [address] [place] [address] Performed By: #### 5 7021-8 ####[facility] LABORATORYCLIA [id number] [address] WBC (Bld) [#/Vol] 7.40 10*3/uL Normal 3.70-11.00 [facility] Comment on above: Order Comment: Speci men Type: BLOOD SPECIMENOrdering Facility: [facility] Address: [address] [place] [address] Performed By: #### 5 7021-8 ####[facility] LABORATORYCLIA [id number] [address] WBC Left Shift Ql (Bld) Present Normal [facility] Comment on above: Order Comment: Speci men Type: BLOOD SPECIMENOrdering Facility: [facility] Address: [address] [place] [address] Performed By: #### 5 7021-8 ####[facility] LABORATORYCLIA [id number] [address] Comprehensive metabolic 2000 panelon 01-02-2023 Albumin [Mass/Vol] 3.2 g/dL Low 3.9-4.9 [facility] Comment on above: Order Comment: Speci men Type: BLOOD SPECIMENOrdering Facility: [facility] Address: [address] [address] Performed By: #### 2 4323-8, 62572-1 ####[facility] LABORATORYCLIA [id number] [address] ALP [Catalytic activity/Vol] 63 U/L Normal 34-123 [facility] Comment on above: Order Comment: Speci men Type: BLOOD SPECIMENOrdering Facility: [facility] Address: [address] [address] Performed By: #### 2 4323-8, 09456-1 ####[facility] LABORATORYCLIA [id number] [address] ALT With P-5'-P [Catalytic activity/Vol] 17 U/L Normal 7-38 [facility] Comment on above: Order Comment: Speci men Type: BLOOD SPECIMENOrdering Facility: [facility] Address: [address] [place] [address] Performed By: #### 2 4323-8, 73910-0 ####[facility] LABORATORYCLIA [id number] [address] Anion gap [Moles/Vol] 10 mmol/L Normal 9-18 [facility] Comment on above: Order Comment: Speci men Type: BLOOD SPECIMENOrdering Facility: [facility] Address: [address] [place] [address] Performed By: #### 2 4323-8, 15078-6 ####[facility] LABORATORYCLIA [id number] [address] [place] AST With P-5'-P [Catalytic activity/Vol] 10 U/L Low 13-35 [facility] Comment on above: Order Comment: Speci men Type: BLOOD SPECIMENOrdering Facility: [facility] Address: [address] [address] Performed By: #### 2 4323-8, 35393-4 ####[facility] LABORATORYCLIA [id number] [address] [place] Bilirubin [Mass/Vol] mg/dL Low 0.2-1.3 [facility] Comment on above: Order Comment: Speci men Type: BLOOD SPECIMENOrdering Facility: [facility] Address: [address] [place] [address] Performed By: #### 2 4323-8, 13844-0 ####[facility] LABORATORYCLIA [id number] [place] [address] [place] Calcium [Mass/Vol] 8.9 mg/dL Normal 8.5-10.2 [facility] Comment on above: Order Comment: Speci men Type: BLOOD SPECIMENOrdering Facility: [facility] Address: [address] [place] [address] Performed By: #### 2 4323-8, 53378-4 ####[facility] LABORATORYCLIA [id number] [place] [address] [place] Chloride [Moles/Vol] 96 mmol/L Low 97-105 [facility] Comment on above: Order Comment: Speci men Type: BLOOD SPECIMENOrdering Facility: [facility] Address: [address] [place] [address] Performed By: #### 2 4323-8, 92048-2 ####[facility] LABORATORYCLIA [id number] [place] [address] [place] CO2 [Moles/Vol] 32 mmol/L High 22-30 [facility] Comment on above: Order Comment: Speci men Type: BLOOD SPECIMENOrdering Facility: [facility] Address: [address] [place] [address] Performed By: #### 2 4323-8, 77181-0 ####[facility] LABORATORYCLIA [id number] [place] [address] [place] Creatinine [Mass/Vol] 1.60 mg/dL High 0.58-0.96 [facility] Comment on above: Order Comment: Speci men Type: BLOOD SPECIMENOrdering Facility: [facility] Address: [address] [place], [place] [address] Performed By: #### 2 4323-8, 50534-9 ####[facility]PITALCLIA [id number] [place] [id number] [facility] ESTIMATED GLOMERULAR FILTRATION RATE 36 mL/min/1.73m??? Low >=60 [facility] Comment on above: Order Comment: Scott seals Type: BLOOD SPECIMENOrdering Facility: [facility] Address: [address] [place] [address] Result Comment: Petra mated Glomerular Filtration Rate (eGFR) is calculated using the 2020 CKD-EPI creatinine equation. This equation utilizes serum creatinine, sex, and age as parameters. The creatinine assay has traceable calibration to isotope dilution-mass spectrometry. Refer to KDIGO guidelines for clinical interpretation. In patients with unstable renal function, e.g. those with acute kidney injury, the eGFR may not accurately reflect actual GFR. Performed By: #### 2 4323-8, 48635-3 ####[facility] HOSPITALIA [id number] [address] Glucose [Mass/Vol] 379 mg/dL High 74-99 [facility] Comment on above: Order Comment: Scott seals Type: BLOOD SPECIMENOrdering Facility: [facility] Address: [address] [facility] [place] [address] Result Comment: The [place] Diabetes Association (ADA) provides guidance for cutoff values for fasting glucose and random glucose. The ADA defines fasting as no caloric intake for at least 8 hours. Fasting plasma glucose results between 100 to 125 mg/dL indicate increased risk for diabetes (prediabetes).Fasting plasma glucose results greater than or equal to 126 mg/dL meet the criteria for diagnosis of diabetes. In the absence of unequivocal hyperglycemia, results should be confirmed by repeat testing. In a patient with classic symptoms of hyperglycemia or hyperglycemic crisis, random plasma glucose results greater than or equal to 200 mg/dL meet the criteria for diagnosis of diabetes.Reference: Standards of Medical Care in Diabetes 2016, [place] [employer]. Diabetes Care. 2016.39(Suppl 1). Performed By: #### 2 4323-8, 29669-2 ####[facility] LABORATORYCLIA [id number] [address] STATES OF [facility] Potassium [Moles/Vol] 5.0 mmol/L Normal 3.7-5.1 [facility] Comment on above: Order Comment: Speci men Type: BLOOD SPECIMENOrdering Facility: [facility] Address: [address] [place] [address] Performed By: #### 2 4323-8, 71532-9 ####[facility] LABORATORYCLIA [id number] [place] [address] [place] Protein [Mass/Vol] 5.3 g/dL Low 6.3-8.0 [facility] Comment on above: Order Comment: Speci men Type: BLOOD SPECIMENOrdering Facility: [facility] Address: [address] [place] [address] Performed By: #### 2 4323-8, 26160-4 ####[facility] LABORATORYCLIA [id number] [address] STATES [facility] Sodium [Moles/Vol] 138 mmol/L Normal 136-144 [facility] Comment on above: Order Comment: Speci men Type: BLOOD SPECIMENOrdering Facility: [facility] Address: [address] [place] [address] Performed By: #### 2 4323-8, 80418-5 ####[facility] LABORATORYCLIA [id number] [address] [place] Urea nitrogen [Mass/Vol] 32 mg/dL High 7-21 [facility] Comment on above: Order Comment: Speci men Type: BLOOD SPECIMENOrdering Facility: [facility] Address: [address] [place] [address] Performed By: #### 2 4323-8, 48828-2 ####[facility] LABORATORYCLIA [id number] [address] STATES OF [facility] Determination of erythrocyte mean corpuscular volume (MCV)Ordered By: Lucy Quick on 01-02-2023 MCV (RBC) [Entitic vol] 96.2 fL 81-99 [facility] ED NOTEon 01-02-2023 ED NOTE HNO ID: [id number] Author: Harsha Morin RN Service: Emergency Medicine Author Type: Registered Nurse Type: ED Notes Filed: 01/02/2023 9:29 PM Note Text: Report called back to [place] of Jessica CRANE Normal [facility] ED NOTE HNO ID: [id number] Author: Sandy Steve RN Service: Emergency Medicine Author Type: Registered Nurse Type: ED Notes Filed: 01/02/2023 5:13 PM Note Text: 800 mL urine output Normal [facility] ED NOTE HNO ID: [id number] Author: Sandy Steve RN Service: Emergency Medicine Author Type: Registered Nurse Type: ED Notes Filed: 01/02/2023 3:50 PM Note Text: Per EMS, pt reports that she has had swelling for the past week. Normal [facility] ED NOTE HNO ID: [id number] Author: Roseann Reyes, Medic Service: ? 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 Type: ED Notes Filed: 01/02/2023 3:31 PM Note Text: Bed: 36-ED Expected date: Expected time: Means of arrival: Comments: Physicians exac chf/swelling Normal [facility] ED PROV NOTEon 01-02-2023 ED PROV NOTE Normal [facility] HIGH SENSITIVITY TROPONIN T (INITIAL)on 01-02-2023 HIGH SENSITIVITY MARIE 61 ng/L High <12 [facility] Comment on above: Order Comment: Speci men Type: BLOOD SPECIMENOrdering Facility: [facility] Address: [address] [place], [place] [id number] Result Comment: When assessing risk for acute coronary syndromes: In patients undergoing blood draw greater than or equal to 2 hours from symptom onset, with history of very low to moderate risk and non-ischemic ECG, an initial hs-Troponin T less than 12 ng/L AND a 1 hour delta hs-Troponin T less than 3 ng/L should be considered very low risk for 30 day MACE. Performed By: #### L [id number] ####[facility] LABORATORYCLIA [id number] [address] OF [facility] HIGH SENSITIVITY TROPONIN T (SECOND)on 01-02-2023 HIGH SENSITIVITY MARIE 59 ng/L High <12 [facility] Comment on above: Order Comment: Scott seals Type: BLOOD SPECIMENOrdering Facility: [facility] Address: [address] [place] [address] Result Comment: When assessing risk for acute coronary syndromes: In patients undergoing blood draw greater than or equal to 2 hours from symptom onset, with history of very low to moderate risk and non-ischemic ECG, an initial hs-Troponin T less than 12 ng/L AND a 1 hour delta hs-Troponin T less than 3 ng/L should be considered very low risk for 30 day MACE. Performed By: #### L [id number] ####[facility] LABORATORYCLIA [id number] [place] [address] [place] Hematocrit Auto (Bld) [Volum e fraction]Ordered By: Lucy Quick on 01-02-2023 Hematocrit (Bld) [Volume fraction] 30.3 % 37-47 [facility] - Hematology and Cell countsOrdered By: Lucy Quick on 01-02-2023 Erythrocyte distribution width (RBC) [Entitic vol] 57.6 fL 35.1-43.9 [facility] Erythrocyte distribution width (RBC) [Ratio] 16.4 % 11.6-14.6 [facility] MCH (RBC) [Entitic mass] 29.8 pg 27.0-32.0 [facility] MCHC Auto (RBC) [Mass/Vol]Or dered By: Lucy Quick on 01-02-2023 MCHC (RBC) [Mass/Vol] 31.0 g/dL 32-36 [facility] NT-[facility]BNP [facility]02 Natriuretic peptide.B prohormone N-Terminal [Mass/Vol] 402 pg/mL High <125 [facility] Comment on above: Order Comment: Scott seals Type: BLOOD SPECIMENOrdering Facility: [facility] Address: [address] [phone] Performed By: #### 2 4323-8, 68913-9 ####[facility] LABORATORYCLIA [id number] [place] [address] [place] Platelets bldOrdered By: Josee Quick on 01-02-2023 Platelets (Bld) [#/Vol] 286 10*3/uL 150-450 [facility] SARS-CoV-2 RNA Resp Ql IGGY+p robeon 01-02-2023 SARS-CoV-2 (COVID-19) RNA IGGY+probe Ql (Resp) COVID 19 RESULT: Not detected The method used is RT-PCR or an equivalent NAAT method. Reference Range(the expected result in uninfected individuals): Not detected Normal [facility] Comment on above: Performed By: #### 9 4500-6 ####[facility] LABORATORYCLIA [id number] [place] [address] [place] XR CHEST 1V FRONTALon 2022 XR CHEST 1V FRONTAL Normal [facility] Basophil percentageOrdered B y: Lucy Quick on 12-25-2022 Basophil percentage 0 SEEN /hpf 0-5 [facility] Bilirubin Test strip Ql (U)O rdered By: Lucy Quick on 12-25-2022 Bilirubin Ql (U) Negative Negative [facility] Ketones Test strip Ql (U)Ord ered By: Lucy Quick on 12-25-2022 Ketones Ql (U) Negative Negative [facility] Mucus LM Ql (Urine sed)Order ed By: Lucy Quick on 12-25-2022 Mucus Ql (Urine sed) 0 SEEN /hpf [facility] Nitrite Test strip Ql (U)Ord ered By: Lucy Quick on 12-25-2022 Nitrite Ql (U) Negative Negative [facility] Protein Test strip Ql (U)Ord ered By: Lucy Quick on 12-25-2022 Protein Ql (U) 15 mg/dl Negative [facility] Squamous epithelial cells de tection in urine sediment by light microscopyOrdered By: Lucy Quick on 12-25-2022 Epithelial cells.squamous LM Ql (Urine sed) 0 SEEN /hpf 5-10 [facility] Urine blood detectionOrdered By: Lucy Quick on 12-25-2022 RBC Ql (U) Negative Negative [facility] RBC Ql (U) 0 SEEN /hpf 0-5 [facility] Urine clarityOrdered By: Pet roro Quick on 12-25-2022 Clarity (U) Sl. Cloudy Clear [facility] Urine color determinationOrd ered By: Lucy Quick on 12-25-2022 Color (U) Yellow Yellow [facility] Urine glucose detectionOrder ed By: Lucy Quick on 12-25-2022 Glucose Ql (U) Normal mg/dl Normal [facility] Urine leukocyte esterase det ection by dipstickOrdered By: Lucy Quick on 12-25-2022 Leukocyte esterase Test strip Ql (U) Negative Negative [facility] Urine pHOrdered By: Lucy mcguire on 12-25-2022 pH (U) 6.0 [pH] 5.0 - 8.0 [facility] Urine sediment bacteria coun t by microscopy (number/high power field)Ordered By: Lucy Quick on 12-25-2022 Bacteria LM.HPF (Urine sed) [#/Area] 0 /[HPF] None Seen [facility] Urine specific gravity measu rementOrdered By: Lucy Quick on 12-25-2022 Specific gravity (U) [Rel density] 1.010 1.002-1.030 [facility] Urobilinogen Auto test strip Ql (U)Ordered By: Lucy Quick on 12-25-2022 Urobilinogen Ql (U) Normal mg/dl Normal [facility] 12-22-2022 CNPN Normal [facility] CNPNon 12-19-2022 CNP Normal [facility] Basophil percentageOrdered B y: Lucy Quick on 12-05-2022 Chloride [Moles/Vol] 107 mmol/L 98-107 [facility] Glucose [Mass/Vol] 133 mg/dL 74-106 [facility] Comment on above: Fasting Glucose resu lt greater than or equal to 126 mg/dL suggests DIABETES MELLITUS per A.D.A. criteria. Potassium [Moles/Vol] 4.4 mmol/L 3.5-5.1 [facility] Sodium [Moles/Vol] 143 mmol/L 136-145 [facility] WBC (Bld) [#/Vol] 9.9 10*3/uL 4.4-11.0 [facility] Blood erythrocytes count (nu mber/volume)Ordered By: Lucy Quick on 12-05-2022 RBC (Bld) [#/Vol] 3.45 10*6/uL 4.2-5.4 [facility] Blood hemoglobin measurement (mass/volume)Ordered By: Lucy Quick on 12-05-2022 Hemoglobin (Bld) [Mass/Vol] 10.1 g/dL 12.0-15.0 [facility] Blood platelet mean volumeOr dered By: Lucy Quick on 12-05-2022 Platelet mean volume (Bld) [Entitic vol] 8.4 fL 6.2-12.0 [facility] CNPTOUTREACHon 12-05-2022 CNPTOUTREACH Normal [facility] Determination of erythrocyte mean corpuscular volume (MCV)Ordered By: Lucy Quick on 12-05-2022 MCV (RBC) [Entitic vol] 95.4 fL 81-99 [facility] Hematocrit Auto (Bld) [Volum e fraction]Ordered By: Lucy Quick on 12-05-2022 Hematocrit (Bld) [Volume fraction] 32.9 % 37-47 [facility] - Chemistry and C hemistry - challengeOrdered By: Lucy Quick on 12-05-2022 CO2 [Moles/Vol] 31.0 mmol/L 21.0-32.0 [facility] Urea nitrogen/Creatinine [Mass ratio] 33.8 mg/mg 10-20 [facility] - Hematology and Cell countsOrdered By: Lucy Quick on 12-05-2022 Erythrocyte distribution width (RBC) [Entitic vol] 57.4 fL 35.1-43.9 [facility] Erythrocyte distribution width (RBC) [Ratio] 16.4 % 11.6-14.6 [facility] MCH (RBC) [Entitic mass] 29.3 pg 27.0-32.0 [facility] MCHC Auto (RBC) [Mass/Vol]Or dered By: Lucy Quick on 12-05-2022 MCHC (RBC) [Mass/Vol] 30.7 g/dL 32-36 [facility] No Panel InformationOrdered By: Lucy Quick on 12-05-2022 Estimated GFR (MDRD) Amer 48 mL/min >60 [facility] Comment on above: GFR Calc Estimated GFR (MDRD) Non-Af Amer 39 mL/min >60 [facility] Comment on above: Non- GFR Calc Platelets bldOrdered By: Josee Quick on 12-05-2022 Platelets (Bld) [#/Vol] 299 10*3/uL 150-450 [facility] Serum or plasma calcium catracho urement (mass/volume)Ordered By: Lucy Quick on 12-05-2022 Calcium [Mass/Vol] 8.2 mg/dL 8.5-10.1 [facility] Serum or plasma creatinine m easurement (mass/volume)Ordered By: Lucy Quick on 12-05-2022 Creatinine [Mass/Vol] 1.42 mg/dL 0.55-1.02 [facility] Comment on above: The validity of the calculated GFR & GFRAA in patients over 70 years has not been determined. Clinical correlation is essential. Serum or plasma urea nitroge n measurement (mass/volume)Ordered By: Lucy Quick on 12-05-2022 Urea nitrogen [Mass/Vol] 48 mg/dL 7-18 [facility] Thin prep Papanicolaou smear with manual screeningOrdered By: Lucy Quick on 12-05-2022 Thin prep Papanicolaou smear with manual screening 5 5-15 [facility] Culture, urineOrdered By: Jemal Campos on 12-01-2022 Bacteria identified Cx Nom (U) Meth. resistant Staph. aureus [facility] Bacteria identified Cx Nom (U) Aerococcus viridans. [facility] Basophil percentageOrdered B y: Lucy Quick on 11-28-2022 WBC (Bld) [#/Vol] 12.5 10*3/uL 4.4-11.0 [facility] Bilirubin [Mass/Vol] 0.30 mg/dL 0.20-1.00 [facility] Comment on above: For patients on eltr ombopag therapy, use of Dimension [place] TBIL is not recommended. Chloride [Moles/Vol] 107 mmol/L 98-107 [facility] Glucose [Mass/Vol] 219 mg/dL 74-106 [facility] Comment on above: Glucose result great er than or equal to 200 mg/dLsuggests DIABETES MELLITUS per A.D.A. criteria. Potassium [Moles/Vol] 4.7 mmol/L 3.5-5.1 [facility] Protein [Mass/Vol] 5.8 g/dL 6.4-8.2 [facility] Sodium [Moles/Vol] 142 mmol/L 136-145 [facility] Blood erythrocytes count (nu mber/volume)Ordered By: Lucy Quick on 11-28-2022 RBC (Bld) [#/Vol] 3.73 10*6/uL 4.2-5.4 [facility] Blood hemoglobin measurement (mass/volume)Ordered By: Lucy Quick on 11-28-2022 Hemoglobin (Bld) [Mass/Vol] 10.7 g/dL 12.0-15.0 [facility] Blood platelet mean volumeOr dered By: Lucy Quick on 11-28-2022 Platelet mean volume (Bld) [Entitic vol] 9.8 fL 6.2-12.0 [facility] Determination of erythrocyte mean corpuscular volume (MCV)Ordered By: Lucy Quick on 11-28-2022 MCV (RBC) [Entitic vol] 88.7 fL 81-99 [facility] Hematocrit Auto (Bld) [Volum e fraction]Ordered By: Lucy Quick on 11-28-2022 Hematocrit (Bld) [Volume fraction] 33.1 % 37-47 [facility] Laboratory - Chemistry and C hemistry - challengeOrdered By: Lucy Quick on 11-28-2022 ALP [Catalytic activity/Vol] 59 U/L 45-117 [facility] ALT [Catalytic activity/Vol] 23 U/L 13-56 [facility] CO2 [Moles/Vol] 27.0 mmol/L 21.0-32.0 [facility] Globulin (S) [Mass/Vol] 3.3 g/dL 2.2-4.2 [facility] Urea nitrogen/Creatinine [Mass ratio] 33.6 mg/mg 10-20 [facility] - Hematology and Cell countsOrdered By: Lucy Quick on 11-28-2022 Erythrocyte distribution width (RBC) [Entitic vol] 49.4 fL 35.1-43.9 [facility] Erythrocyte distribution width (RBC) [Ratio] 15.2 % 11.6-14.6 [facility] MCH (RBC) [Entitic mass] 28.7 pg 27.0-32.0 [facility] MCHC Auto (RBC) [Mass/Vol]Or dered By: Lucy Quick on 11-28-2022 MCHC (RBC) [Mass/Vol] 32.3 g/dL 32-36 [facility] No Panel InformationOrdered By: Lucy Quick on 11-28-2022 Estimated GFR (MDRD) Amer 49 mL/min >60 [facility] Comment on above: GFR Calc Estimated GFR (MDRD) Non-Af Amer 40 mL/min >60 [facility] Comment on above: Non- GFR Calc Thyroid Stimulating Hormone (TSH) 1.48 uIU/mL 0.358-3.74 [facility] Platelets bldOrdered By: Josee Quick on 11-28-2022 Platelets (Bld) [#/Vol] 264 10*3/uL 150-450 [facility] Serum or plasma albumin catracho urement (mass/volume)Ordered By: Lucy Quick on 11-28-2022 Albumin [Mass/Vol] 2.5 g/dL 3.2-5.0 [facility] Serum or plasma albumin/glob ulin mass ratioOrdered By: Lucy Quick on 11-28-2022 Albumin/Globulin [Mass ratio] 0.8 {ratio} 0.9-2.4 [facility] Serum or plasma calcium catracho urement (mass/volume)Ordered By: Lucy Quick on 11-28-2022 Calcium [Mass/Vol] 8.4 mg/dL 8.5-10.1 [facility] Serum or plasma creatinine m easurement (mass/volume)Ordered By: Lucy Quick on 11-28-2022 Creatinine [Mass/Vol] 1.40 mg/dL 0.55-1.02 [facility] Comment on above: The validity of the calculated GFR & GFRAA in patients over 70 years has not been determined. Clinical correlation is essential. Serum or plasma urea nitroge n measurement (mass/volume)Ordered By: Lucy Quick on 11-28-2022 Urea nitrogen [Mass/Vol] 47 mg/dL 7-18 [facility] Thin prep Papanicolaou smear with manual screeningOrdered By: Lucy Quick on 11-28-2022 Thin prep Papanicolaou smear with manual screening 12 U/L 15-37 [facility] Thin prep Papanicolaou smear with manual screening 8 5-15 [facility] Basophil percentageOrdered B y: Lucy Quick on 11-27-2022 Basophil percentage 0 SEEN /hpf 0-5 [facility] Bilirubin Test strip Ql (U)O rdered By: Lucy Quick on 11-27-2022 Bilirubin Ql (U) Negative Negative [facility] Ketones Test strip Ql (U)Ord ered By: Lucy Quick on 11-27-2022 Ketones Ql (U) Negative Negative [facility] Mucus LM Ql (Urine sed)Order ed By: Lucy Quick on 11-27-2022 Mucus Ql (Urine sed) 0 SEEN /hpf [facility] Nitrite Test strip Ql (U)Ord ered By: Lucy Quick on 11-27-2022 Nitrite Ql (U) Negative Negative [facility] Protein Test strip Ql (U)Ord ered By: Lucy Quick on 11-27-2022 Protein Ql (U) 15 mg/dl Negative [facility] Squamous epithelial cells de tection in urine sediment by light microscopyOrdered By: Lucy Quick on 11-27-2022 Epithelial cells.squamous LM Ql (Urine sed) 0 SEEN /hpf 5-10 [facility] Urine blood detectionOrdered By: Lucy Quick on 11-27-2022 RBC Ql (U) Negative Negative [facility] RBC Ql (U) 0 SEEN /hpf 0-5 [facility] Urine clarityOrdered By: Josee Quick on 11-27-2022 Clarity (U) Clear Clear [facility] Urine color determinationOrd ered By: Lucy Quick on 11-27-2022 Color (U) Yellow Yellow [facility] Urine glucose detectionOrder ed By: Lucy Quick on 11-27-2022 Glucose Ql (U) 250 mg/dl Normal [facility] Urine leukocyte esterase det ection by dipstickOrdered By: Lucy Quick on 11-27-2022 Leukocyte esterase Test strip Ql (U) Negative Negative [facility] Urine pHOrdered By: Lucy mcguire on 11-27-2022 pH (U) 6.0 [pH] 5.0 - 8.0 [facility] Urine sediment bacteria coun t by microscopy (number/high power field)Ordered By: Lucy Quick on 11-27-2022 Bacteria LM.HPF (Urine sed) [#/Area] 0 /[HPF] None Seen [facility] Urine specific gravity measu rementOrdered By: Lucy Quick on 11-27-2022 Specific gravity (U) [Rel density] 1.015 1.002-1.030 [facility] Urobilinogen Auto test strip Ql (U)Ordered By: Lucy Quick on 11-27-2022 Urobilinogen Ql (U) Normal mg/dl Normal [facility] Basophil percentageOrdered B y: Lucy Quick on 11-24-2022 WBC (Bld) [#/Vol] 16.9 10*3/uL 4.4-11.0 [facility] Blood erythrocytes count (nu mber/volume)Ordered By: Lucy Quick on 11-24-2022 RBC (Bld) [#/Vol] 3.44 10*6/uL 4.2-5.4 [facility] Blood hemoglobin measurement (mass/volume)Ordered By: Lucy Quick on 11-24-2022 Hemoglobin (Bld) [Mass/Vol] 10.1 g/dL 12.0-15.0 [facility] Blood platelet mean volumeOr dered By: Lucy Quick on 11-24-2022 Platelet mean volume (Bld) [Entitic vol] 9.3 fL 6.2-12.0 [facility] Determination of erythrocyte mean corpuscular volume (MCV)Ordered By: Lucy Quick on 11-24-2022 MCV (RBC) [Entitic vol] 91.6 fL 81-99 [facility] Hematocrit Auto (Bld) [Volum e fraction]Ordered By: Lucy Quick on 11-24-2022 Hematocrit (Bld) [Volume fraction] 31.5 % 37-47 [facility] Laboratory - Hematology and Cell countsOrdered By: Lucy Quick on 11-24-2022 Erythrocyte distribution width (RBC) [Entitic vol] 49.4 fL 35.1-43.9 [facility] Erythrocyte distribution width (RBC) [Ratio] 15.1 % 11.6-14.6 [facility] MCH (RBC) [Entitic mass] 29.4 pg 27.0-32.0 [facility] MCHC Auto (RBC) [Mass/Vol]Or dered By: Lucy Quick on 11-24-2022 MCHC (RBC) [Mass/Vol] 32.1 g/dL - [facility] Platelets bldOrdered By: Pet er Dustin on 11-24-2022 Platelets (Bld) [#/Vol] 289 10*3/uL 150-450 [facility] CNPNon 11-20-2022 CNPN [facility] CNPTOUTREACHon 11-20-2022 CNPTOUTREACH [facility] CASE MANAGEMon 11-17-2022 CASE MANAGEM [facility] CNDSon 11-17-2022 CNDS [facility] NUTRITIONon 11-17-2022 NUTRITION [facility] SARS-CoV-2 RNA Resp Ql IGGY+p robeon 11-17-2022 SARS-CoV-2 (COVID-19) RNA IGGY+probe Ql (Resp) COVID 19 RESULT: SARS-CoV-2 (Agent of COVID-19) Not Detected by RT-PCR or equivalent method. This test has been authorized by FDA under an Emergency Use Authorization (EUA). [facility] Comment on above: Performed By: #### 9 4500-6 ####[facility] LABORATORYCLIA [id number] [address] STATES OF [facility] CASE MANAGEMon 11-16-2022 CASE MANAGEM [facility] THERAPY NTon 11-16-2022 THERAPY NT [facility] THERAPY NT [facility] CASE MANAGEMon 11-15-2022 CASE MANAGEM [facility] NURSING PROGon 11-15-2022 NURSING PROG [facility] CASE MANAGEMon 11-14-2022 CASE MANAGEM [facility] THERAPY NTon 11-14-2022 THERAPY NT [facility] THERAPY NT [facility] THERAPY NT [facility] TSH SerPl-aCncon 11-14-2022 TSH Qn 0.843 m[IU]/L Normal 0.270-4.200 [facility] Comment on above: Order Comment: Speci men Type: BLOOD SPECIMENOrdering Facility: [facility] Address: [address] [place] [id number] Performed By: #### 3 016-3 ####[facility] LABORATORYCLIA [id number] [address] [place] CASE MANAGEMon 11-13-2022 CASE MANAGEM [facility] CONSULTon 11-13-2022 CONSULT [facility] NURSING PROGon 11-13-2022 NURSING PROG [facility] NURSING PROG [facility] CASE MANAGEMon 11-12-2022 CASE MANAGEM [facility] NURSING PROGon 11-12-2022 NURSING PROG [facility] NURSING PROG [facility] NURSING PROG [facility] CASE MGT INIT ASSESon 2022 CASE MGT INIT ASSES [facility] NURSING PROGon 11-11-2022 NURSING PROG [facility] NURSING PROG [facility] NUTRITIONon 11-11-2022 NUTRITION [facility] THERAPY NTon 11-11-2022 THERAPY NT [facility] THERAPY NT [facility] Urinalysis complete pnl Uron 11-11-2022 Urinalysis complete panel (U) Abnormal [facility] Comment on above: Order Comment: Speci men Type: URINE SPECIMENOrdering Facility: [facility] Address: [address] [place] [id number] Performed By: #### 2 4356-8 ####[facility]ORATORYCLIA [id number] [place] [address] [place] Basic metabolic 2000 panelon 11-10-2022 Anion gap [Moles/Vol] 14 mmol/L Normal 9-18 [facility] Comment on above: Order Comment: Speci men Type: BLOOD SPECIMENOrdering Facility: [facility] Address: [address] [address] Performed By: #### 2 4321-2, 15198-9 ####[facility]ORATORYCLIA [id number] [place] [address] [place] Calcium [Mass/Vol] 8.7 mg/dL Normal 8.5-10.2 [facility] Comment on above: Order Comment: Speci men Type: BLOOD SPECIMENOrdering Facility: [facility] Address: [address] [place] [address] Performed By: #### 2 4321-2, 00081-9 ####[facility]ORATORYCLIA [id number] [place] [address] [place] Chloride [Moles/Vol] 94 mmol/L Low 97-105 [facility] Comment on above: Order Comment: Speci men Type: BLOOD SPECIMENOrdering Facility: [facility] Address: [address] [place] [address] Performed By: #### 2 4321-2, 82400-5 ####[facility]ORATORYCLIA [id number] [place] [address] [place] CO2 [Moles/Vol] 26 mmol/L Normal 22-30 [facility] Comment on above: Order Comment: Speci men Type: BLOOD SPECIMENOrdering Facility: [facility] Address: [address] [place] [address] Performed By: #### 2 4321-2, 29706-5 ####[facility]ORATORYCLIA [id number] [place] [address] [place] Creatinine [Mass/Vol] 1.39 mg/dL High 0.58-0.96 [facility] Comment on above: Order Comment: Speci men Type: BLOOD SPECIMENOrdering Facility: [facility] Address: [address] [place] [address] Performed By: #### 2 4321-2, 85962-2 ####[facility]ORATORYCLIA [id number] [place] [address] [place] ESTIMATED GLOMERULAR FILTRATION RATE 42 mL/min/1.73m??? Low >=60 [facility] Comment on above: Order Comment: Scott seals Type: BLOOD SPECIMENOrdering Facility: [facility] Address: [address] [place] [address] Result Comment: Petra mated Glomerular Filtration Rate (eGFR) is calculated using the 2020 CKD-EPI creatinine equation. This equation utilizes serum creatinine, sex, and age as parameters. The creatinine assay has traceable calibration to isotope dilution-mass spectrometry. Refer to KDIGO guidelines for clinical interpretation. In patients with unstable renal function, e.g. those with acute kidney injury, the eGFR may not accurately reflect actual GFR. Performed By: #### 2 4321-2, 34719-4 ####[facility] LABORATORYCLIA [id number] [place] [address] [place] Glucose [Mass/Vol] 317 mg/dL High 74-99 [facility] Comment on above: Order Comment: Scott seals Type: BLOOD SPECIMENOrdering Facility: [facility] Address: [address] [place] [address] Result Comment: The [place] Diabetes [employer] (ADA) provides guidance for cutoff values for fasting glucose and random glucose. The ADA defines fasting as no caloric intake for at least 8 hours. Fasting plasma glucose results between 100 to 125 mg/dL indicate increased risk for diabetes (prediabetes).Fasting plasma glucose results greater than or equal to 126 mg/dL meet the criteria for diagnosis of diabetes. In the absence of unequivocal hyperglycemia, results should be confirmed by repeat testing. In a patient with classic symptoms of hyperglycemia or hyperglycemic crisis, random plasma glucose results greater than or equal to 200 mg/dL meet the criteria for diagnosis of diabetes.Reference: Standards of Medical Care in Diabetes 2016, [place] [employer]. Diabetes Care. 2016.39(Suppl 1). Performed By: #### 2 4321-2, 23722-7 ####[facility] LABORATORYCLIA [id number] [place] [address] [place] Potassium [Moles/Vol] 4.3 mmol/L Normal 3.7-5.1 [facility] Comment on above: Order Comment: Speci men Type: BLOOD SPECIMENOrdering Facility: [facility] Address: [address] [place] [address] Performed By: #### 2 4321-2, 94287-1 ####[facility] LABORATORYCLIA [id number] [address] STATES [place] [facility] Sodium [Moles/Vol] 134 mmol/L Low 136-144 [facility] Comment on above: Order Comment: Speci men Type: BLOOD SPECIMENOrdering Facility: [facility] Address: [address] [place] [address] Performed By: #### 2 4321-2, 73722-0 ####[facility] LABORATORYCLIA [id number] [address] Urea nitrogen [Mass/Vol] 31 mg/dL High 7-21 [facility] Comment on above: Order Comment: Speci men Type: BLOOD SPECIMENOrdering Facility: [facility] Address: [address] [place] [address] Performed By: #### 2 4321-2, 64840-0 ####[facility] LABORATORYCLIA [id number] [address] CBC W Auto Differential pane l (Bld)on 11-10-2022 Basophils (Bld) [#/Vol] 0.05 10*3/uL Normal <0.11 [facility] Comment on above: Order Comment: Speci men Type: BLOOD SPECIMENOrdering Facility: [facility] Address: [address] [place] [address] Result Comment: Diff erential confirmed by visual scan of peripheral blood smear slide. Performed By: #### 5 7021-8 ####[facility] LABORATORYCLIA [id number] [address] Basophils/100 WBC (Bld) 0.6 % Normal [facility] Comment on above: Order Comment: Speci men Type: BLOOD SPECIMENOrdering Facility: [facility] Address: [address] [place] [address] Performed By: #### 5 7021-8 ####[facility] LABORATORYCLIA [id number] [address] Differential cell count method Nom (Bld) Auto [facility] Comment on above: Order Comment: Speci men Type: BLOOD SPECIMENOrdering Facility: [facility] Address: [address] [place] [address] Performed By: #### 5 7021-8 ####[facility] LABORATORYCLIA [id number] [address] Eosinophils (Bld) [#/Vol] 0.24 10*3/uL Normal <0.46 [facility] Comment on above: Order Comment: Speci men Type: BLOOD SPECIMENOrdering Facility: [facility] Address: [address] [place] [address] Performed By: #### 5 7021-8 ####[facility] LABORATORYCLIA [id number] [address] Eosinophils/100 WBC (Bld) 3.0 % Normal [facility] Comment on above: Order Comment: Speci men Type: BLOOD SPECIMENOrdering Facility: [facility] Address: [address] [place] [address] Performed By: #### 5 7021-8 ####[facility] LABORATORYCLIA [id number] [address] Erythrocyte distribution width (RBC) [Ratio] 14.2 % Normal 11.5-15.0 [facility] Comment on above: Order Comment: Speci men Type: BLOOD SPECIMENOrdering Facility: [facility] Address: [address] [place] [address] Performed By: #### 5 7021-8 ####[facility] LABORATORYCLIA [id number] [address] Hematocrit (Bld) [Volume fraction] 30.3 % Low 36.0-46.0 [facility] Comment on above: Order Comment: Speci men Type: BLOOD SPECIMENOrdering Facility: [facility] Address: [address] [place] [address] Performed By: #### 5 7021-8 ####[facility]ORATORYCLIA [id number] [place] [address] [place] Hemoglobin (Bld) [Mass/Vol] 9.3 g/dL Low 11.5-15.5 [facility] Comment on above: Order Comment: Speci men Type: BLOOD SPECIMENOrdering Facility: [facility] Address: [address] [place] [address] Performed By: #### 5 7021-8 ####[facility] LABORATORYCLIA [id number] [address] [place] Immature granulocytes (Bld) [#/Vol] 0.29 10*3/uL High <0.10 [facility] Comment on above: Order Comment: Speci men Type: BLOOD SPECIMENOrdering Facility: [facility] Address: [address] [place] [address] Performed By: #### 5 7021-8 ####[facility] LABORATORYCLIA [id number] [address] [place] Immature granulocytes/100 WBC (Bld) 3.6 % Normal [facility] Comment on above: Order Comment: Speci men Type: BLOOD SPECIMENOrdering Facility: [facility] Address: [address] [place] [address] Performed By: #### 5 7021-8 ####[facility] LABORATORYCLIA [id number] [place] [address] [place] Lymphocytes (Bld) [#/Vol] 1.61 10*3/uL Normal 1.00-4.00 [facility] Comment on above: Order Comment: Speci men Type: BLOOD SPECIMENOrdering Facility: [facility] Address: [address] [place] [address] Performed By: #### 5 7021-8 ####[facility]ORATORYCLIA [id number] [address] OF [place] Lymphocytes/100 WBC (Bld) 20.0 % Normal [facility] Comment on above: Order Comment: Speci men Type: BLOOD SPECIMENOrdering Facility: [facility] Address: [address] [place] [address] Performed By: #### 5 7021-8 ####[facility] LABORATORYCLIA [id number] [address] STATES OF [facility] MCH (RBC) [Entitic mass] 29.4 pg Normal 26.0-34.0 [facility] Comment on above: Order Comment: Speci men Type: BLOOD SPECIMENOrdering Facility: [facility] Address: [address] [place] [address] Performed By: #### 5 7021-8 ####[facility] LABORATORYCLIA [id number] [address] [place] MCHC (RBC) [Mass/Vol] 30.7 g/dL Normal 30.5-36.0 [facility] Comment on above: Order Comment: Speci men Type: BLOOD SPECIMENOrdering Facility: [facility] Address: [address] [place] [address] Performed By: #### 5 7021-8 ####[facility] LABORATORYCLIA [id number] [address] MCV (RBC) [Entitic vol] 95.9 fL Normal 80.0-100.0 [facility] Comment on above: Order Comment: Speci men Type: BLOOD SPECIMENOrdering Facility: [facility] Address: [address] [place] [address] Performed By: #### 5 7021-8 ####[facility] LABORATORYCLIA [id number] [address] Monocytes (Bld) [#/Vol] 1.01 10*3/uL High <0.87 [facility] Comment on above: Order Comment: Speci men Type: BLOOD SPECIMENOrdering Facility: [facility] Address: [address] [place] [address] Performed By: #### 5 7021-8 ####[facility]ORATORYCLIA [id number] [address] [place] Monocytes/100 WBC (Bld) 12.6 % Normal [facility] Comment on above: Order Comment: Speci men Type: BLOOD SPECIMENOrdering Facility: [facility] Address: [address] [place] [address] Performed By: #### 5 7021-8 ####[facility] LABORATORYCLIA [id number] [address] [place] Neutrophils (Bld) [#/Vol] 4.84 10*3/uL Normal 1.45-7.50 [facility] Comment on above: Order Comment: Speci men Type: BLOOD SPECIMENOrdering Facility: [facility] Address: [address] [place] [address] Performed By: #### 5 7021-8 ####[facility]ATORYCLIA [id number] [address] Neutrophils/100 WBC (Bld) 60.2 % Normal [facility] Comment on above: Order Comment: Speci men Type: BLOOD SPECIMENOrdering Facility: [facility] Address: [address] [place] [address] Performed By: #### 5 7021-8 ####[facility]ORATORYCLIA [id number] [address] [place] Nucleated RBC (Bld) [#/Vol] 0.03 10*3/uL High <0.01 [facility] Comment on above: Order Comment: Speci men Type: BLOOD SPECIMENOrdering Facility: [facility] Address: [address] [place] [address] Performed By: #### 5 7021-8 ####[facility]ORATORYCLIA [id number] [address] [place] Nucleated RBC/100 WBC (Bld) [Ratio] 0.4 /100 WBC Normal [facility] Comment on above: Order Comment: Speci men Type: BLOOD SPECIMENOrdering Facility: [facility] Address: [address] [address] Performed By: #### 5 7021-8 ####[facility] LABORATORYCLIA [id number] [address] [place] Platelet mean volume (Bld) [Entitic vol] 8.6 fL Low 9.0-12.7 [facility] Comment on above: Order Comment: Speci men Type: BLOOD SPECIMENOrdering Facility: [facility] Address: [address] [address] Performed By: #### 5 7021-8 ####[facility] LABORATORYCLIA [id number] [address] [place] Platelets (Bld) [#/Vol] 389 10*3/uL Normal 150-400 [facility] Comment on above: Order Comment: Speci men Type: BLOOD SPECIMENOrdering Facility: [facility] Address: [address] [address] Performed By: #### 5 7021-8 ####[facility] LABORATORYCLIA [id number] [place] [address] [place] RBC (Bld) [#/Vol] 3.16 10*6/uL Low 3.90-5.20 [facility] Comment on above: Order Comment: Speci men Type: BLOOD SPECIMENOrdering Facility: [facility] Address: [address] [address] Performed By: #### 5 7021-8 ####[facility] LABORATORYCLIA [id number] [address] [place] WBC (Bld) [#/Vol] 8.04 10*3/uL Normal 3.70-11.00 [facility] Comment on above: Order Comment: Speci men Type: BLOOD SPECIMENOrdering Facility: [facility] Address: [address] [place] [address] Performed By: #### 5 7021-8 ####[facility] LABORATORYCLIA [id number] [address] CONSULT PROGon 11-10-2022 CONSULT PROG [facility] ECG COMPLETEon 11-10-2022 ECG COMPLETE Normal [facility] ED NOTEon 11-10-2022 ED NOTE HNO ID: [id number] Author: Akua Loyola RN Service: Emergency Medicine Author Type: Registered Nurse Type: ED Notes Filed: 11/10/2022 2:22 PM Note Text: Attempted report. RN unavailable. [facility] ED NOTE [facility] ED NOTE HNO ID: [id number] Author: Nawaf Davis RN Service: Emergency Medicine Author Type: Registered Nurse Type: ED Notes Filed: 11/10/2022 3:03 AM Note Text: Spoke to MD about 3rd Troponin. Told not to worry about drawing it at this moment [facility] ED NOTE HNO ID: [id number] Author: Nawaf Davis RN Service: Emergency Medicine Author Type: Registered Nurse Type: ED Notes Filed: 11/10/2022 12:05 AM Note Text: MD made aware of need for US IV [facility] ED NOTE HNO ID: [id number] Author: Nawaf Davis RN Service: Emergency Medicine Author Type: Registered Nurse Type: ED Notes Filed: 11/09/2022 10:25 PM Note Text: Dressing applied to Coccyx at this time [facility] ED NOTE HNO ID: [id number] Author: Atilio Acosta RN Service: ? Author Type: Registered Nurse Type: ED Notes Filed: 11/09/2022 10:11 PM Note Text: Bed: 20-ED Expected date: Expected time: Means of arrival: Comments: squad [facility] ED PROV NOTEon 11-10-2022 ED PROV NOTE [facility] FLUABV+SARS-CoV-2+RSV Pnl Re sp IGGY+probeon 11-10-2022 FLUABV+SARS-CoV-2+RSV Pnl Resp IGGY+probe [facility] Comment on above: Performed By: #### 9 5941-1 ####[facility] LABORATORYCLIA [id number] [place] [address] [place] HIGH SENSITIVITY TROPONIN T (INITIAL)on 11-10-2022 HIGH SENSITIVITY MARIE 89 ng/L High <12 [facility] Comment on above: Order Comment: Scott seals Type: BLOOD SPECIMENOrdering Facility: [facility] Address: [address] [place] [address] Result Comment: When assessing risk for acute coronary syndromes: In patients undergoing blood draw greater than or equal to 2 hours from symptom onset, with history of very low to moderate risk and non-ischemic ECG, an initial hs-Troponin T less than 12 ng/L AND a 1 hour delta hs-Troponin T less than 3 ng/L should be considered very low risk for 30 day MACE. Performed By: #### L [id number] ####[facility] LABORATORYCLIA [id number] [address] HIGH SENSITIVITY TROPONIN T (SECOND)on 11-10-2022 HIGH SENSITIVITY MARIE 89 ng/L High <12 [facility] Comment on above: Order Comment: Scott seals Type: BLOOD SPECIMENOrdering Facility: [facility] Address: [address] [place] [address] Result Comment: When assessing risk for acute coronary syndromes: In patients undergoing blood draw greater than or equal to 2 hours from symptom onset, with history of very low to moderate risk and non-ischemic ECG, an initial hs-Troponin T less than 12 ng/L AND a 1 hour delta hs-Troponin T less than 3 ng/L should be considered very low risk for 30 day MACE. Performed By: #### L [id number] ####[facility] LABORATORYCLIA [id number] [address] OF [facility] HISTORY PHYSICALon HISTORY PHYSICAL Normal [facility] Natriuretic peptide.B prohormone N-Terminal [Mass/Vol] 356 pg/mL High <125 [facility] Comment on above: Order Comment: Scott seals Type: BLOOD SPECIMENOrdering Facility: [facility] Address: [address] [place] [address] Performed By: #### 2 4321-2, 87936-1 ####[facility] LABORATORYCLIA [id number] [address] OF [place] NURSING PROGon 11-10-2022 NURSING PROG Normal [facility] XR CHEST 1V FRONTALon 2022 XR CHEST 1V FRONTAL Normal [facility] XR SHLDR >/=3V AP/KEKE AP/OTH R RTon 11-10-2022 XR SHLDR >/=3V AP/KEKE AP/OTHR RT Normal [facility] CNPNon 11-09-2022 CNPN Normal [facility] CNPTOUTREACHon 11-09-2022 CNPTOUTREACH Normal [facility] CNPNon 10-31-2022 CNPN Normal [facility] CNPTOUTREACHon 10-31-2022 CNPTOUTREACH Normal [facility] CNPNon 10-29-2022 CNPN Normal [facility] CASE MANAGEMon 10-28-2022 CASE MANAGEM Normal [facility] CASE MANAGEM Normal [facility] CNDSon 10-28-2022 CNDS Normal [facility] SARS-CoV-2 RNA Resp Ql IGGY+p robeon 10-28-2022 SARS-CoV-2 (COVID-19) RNA IGGY+probe Ql (Resp) COVID 19 RESULT: SARS-CoV-2 (Agent of COVID-19) Not Detected by RT-PCR or equivalent method. This test has been authorized by FDA under an Emergency Use Authorization (EUA). Normal [facility] Comment on above: Performed By: #### 9 4500-6 ####[facility] LABORATORYCLIA [id number] [place] [address] [facility] [place] CASE MANAGEMon 10-27-2022 CASE MANAGEM Normal [facility] CASE MANAGEM Normal [facility] CASE MANAGEM Normal [facility] THERAPY NTon 10-27-2022 THERAPY NT Normal [facility] THERAPY NT Normal [facility] CASE MANAGEMon 10-26-2022 CASE MANAGEM Normal [facility] CONSULT PROGon 10-25-2022 CONSULT PROG Normal [facility] ALLIED HEALTHon 10-24-2022 ALLIED HEALTH Normal [facility] CASE MANAGEMon 10-24-2022 CASE MANAGEM Normal [facility] CBC W Auto Differential pane l (Bld)on 10-24-2022 Anisocytosis Ql (Bld) Present Normal [facility] Comment on above: Order Comment: Speci men Type: BLOOD SPECIMENOrdering Facility: [facility] Address: [address] [place] [address] Performed By: #### 5 7021-8 ####[facility] LABORATORYCLIA [id number] [place] [address] [place] Basophils (Bld) [#/Vol] 0.00 10*3/uL Normal <0.11 [facility] Comment on above: Order Comment: Speci men Type: BLOOD SPECIMENOrdering Facility: [facility] Address: [address] [place] [address] Performed By: #### 5 7021-8 ####[facility] LABORATORYCLIA [id number] [place] [address] [place] Basophils/100 WBC (Bld) 0.0 % Normal [facility] Comment on above: Order Comment: Speci men Type: BLOOD SPECIMENOrdering Facility: [facility] Address: [address] [place] [address] Performed By: #### 5 7021-8 ####[facility] LABORATORYCLIA [id number] [place] [address] [place] Differential cell count method Nom (Bld) Manual Normal [facility] Comment on above: Order Comment: Speci men Type: BLOOD SPECIMENOrdering Facility: [facility] Address: [address] [place] [address] Performed By: #### 5 7021-8 ####[facility] LABORATORYCLIA [id number] [place] [address] [place] Eosinophils (Bld) [#/Vol] 0.18 10*3/uL Normal <0.46 [facility] Comment on above: Order Comment: Speci men Type: BLOOD SPECIMENOrdering Facility: [facility] Address: [address] [address] Performed By: #### 5 7021-8 ####[facility] LABORATORYCLIA [id number] [address] [place] Eosinophils/100 WBC (Bld) 2.0 % Normal [facility] Comment on above: Order Comment: Speci men Type: BLOOD SPECIMENOrdering Facility: [facility] Address: [address] [address] Performed By: #### 5 7021-8 ####[facility] LABORATORYCLIA [id number] [address] [place] Erythrocyte distribution width (RBC) [Ratio] 14.9 % Normal 11.5-15.0 [facility] Comment on above: Order Comment: Speci men Type: BLOOD SPECIMENOrdering Facility: [facility] Address: [address] [place] [address] Performed By: #### 5 7021-8 ####[facility] LABORATORYCLIA [id number] [address] [place] Hematocrit (Bld) [Volume fraction] 28.4 % Low 36.0-46.0 [facility] Comment on above: Order Comment: Speci men Type: BLOOD SPECIMENOrdering Facility: [facility] Address: [address] [place] [address] Performed By: #### 5 7021-8 ####[facility] LABORATORYCLIA [id number] [address] [place] Hemoglobin (Bld) [Mass/Vol] 8.7 g/dL Low 11.5-15.5 [facility] Comment on above: Order Comment: Speci men Type: BLOOD SPECIMENOrdering Facility: [facility] Address: [address] [place] [address] Performed By: #### 5 7021-8 ####[facility] LABORATORYCLIA [id number] [address] [place] Lymphocytes (Bld) [#/Vol] 1.84 10*3/uL Normal 1.00-4.00 [facility] Comment on above: Order Comment: Speci men Type: BLOOD SPECIMENOrdering Facility: [facility] Address: [address] [place] [address] Performed By: #### 5 7021-8 ####[facility] LABORATORYCLIA [id number] [address] Lymphocytes/100 WBC (Bld) 4.0 % Normal [facility] Comment on above: Order Comment: Speci men Type: BLOOD SPECIMENOrdering Facility: [facility] Address: [address] [place] [address] Performed By: #### 5 7021-8 ####[facility] LABORATORYCLIA [id number] [address] STATES OF [facility] MCH (RBC) [Entitic mass] 29.7 pg Normal 26.0-34.0 [facility] Comment on above: Order Comment: Speci men Type: BLOOD SPECIMENOrdering Facility: [facility] Address: [address] [place] [address] Performed By: #### 5 7021-8 ####[facility] LABORATORYCLIA [id number] [address] MCHC (RBC) [Mass/Vol] 30.6 g/dL Normal 30.5-36.0 [facility] Comment on above: Order Comment: Speci men Type: BLOOD SPECIMENOrdering Facility: [facility] Address: [address] [place] [address] Performed By: #### 5 7021-8 ####[facility] LABORATORYCLIA [id number] [address] [place] MCV (RBC) [Entitic vol] 96.9 fL Normal 80.0-100.0 [facility] Comment on above: Order Comment: Speci men Type: BLOOD SPECIMENOrdering Facility: [facility] Address: [address] [place] [address] Performed By: #### 5 7021-8 ####[facility] LABORATORYCLIA [id number] [address] OF [place] Metamyelocytes/100 WBC (Bld) 5.0 % Normal [facility] Comment on above: Order Comment: Speci men Type: BLOOD SPECIMENOrdering Facility: [facility] Address: [address] [place] [address] Performed By: #### 5 7021-8 ####[facility] LABORATORYCLIA [id number] [place] [address] [place] Monocytes (Bld) [#/Vol] 0.74 10*3/uL Normal <0.87 [facility] Comment on above: Order Comment: Speci men Type: BLOOD SPECIMENOrdering Facility: [facility] Address: [address] [place] [address] Performed By: #### 5 7021-8 ####[facility] LABORATORYCLIA [id number] [address] [place] Monocytes/100 WBC (Bld) 8.0 % Normal A [facility] Comment on above: Order Comment: Speci men Type: BLOOD SPECIMENOrdering Facility: [facility] Address: [address] [place] [address] Performed By: #### 5 7021-8 ####[facility] LABORATORYCLIA [id number] [address] [place] MYELO% 2.0 % Normal [facility] Comment on above: Order Comment: Speci men Type: BLOOD SPECIMENOrdering Facility: [facility] Address: [address] [place] [address] Performed By: #### 5 7021-8 ####[facility] LABORATORYCLIA [id number] [place] [address] [place] Neutrophils (Bld) [#/Vol] 5.79 10*3/uL Normal 1.45-7.50 [facility] Comment on above: Order Comment: Speci men Type: BLOOD SPECIMENOrdering Facility: [facility] Address: [address] [place] [address] Performed By: #### 5 7021-8 ####[facility] LABORATORYCLIA [id number] [address] Neutrophils/100 WBC (Bld) 63.0 % Normal [facility] Comment on above: Order Comment: Speci men Type: BLOOD SPECIMENOrdering Facility: [facility] Address: [address] [place] [address] Performed By: #### 5 7021-8 ####[facility] LABORATORYCLIA [id number] [address] Nucleated RBC (Bld) [#/Vol] 10*3/uL Normal <0.01 [facility] Comment on above: Order Comment: Speci men Type: BLOOD SPECIMENOrdering Facility: [facility] Address: [address] [place] [address] Result Comment: This result was previously suppressed from the chart. Performed By: #### 5 7021-8 ####[facility] LABORATORYCLIA [id number] [address] Nucleated RBC/100 WBC (Bld) [Ratio] 0.0 /100 WBC Normal [facility] Comment on above: Order Comment: Speci men Type: BLOOD SPECIMENOrdering Facility: [facility] Address: [address] [place] [address] Performed By: #### 5 7021-8 ####[facility] LABORATORYCLIA [id number] [address] Ovalocytes LM Ql (Bld) Few Normal [facility] Comment on above: Order Comment: Speci men Type: BLOOD SPECIMENOrdering Facility: [facility] Address: [address] [place] [address] Performed By: #### 5 7021-8 ####[facility] LABORATORYCLIA [id number] [address] Platelet mean volume (Bld) [Entitic vol] 8.1 fL Low 9.0-12.7 [facility] Comment on above: Order Comment: Speci men Type: BLOOD SPECIMENOrdering Facility: [facility] Address: [address] [address] Performed By: #### 5 7021-8 ####[facility] LABORATORYCLIA [id number] [address] [place] Platelets (Bld) [#/Vol] 352 10*3/uL Normal 150-400 [facility] Comment on above: Order Comment: Speci men Type: BLOOD SPECIMENOrdering Facility: [facility] Address: [address] [place] [address] Performed By: #### 5 7021-8 ####[facility] LABORATORYCLIA [id number] [address] [place] Platelets Estimate (Bld) [#/Vol] Adequate Normal [facility] Comment on above: Order Comment: Speci men Type: BLOOD SPECIMENOrdering Facility: [facility] Address: [address] [place] [address] Performed By: #### 5 7021-8 ####[facility] LABORATORYCLIA [id number] [address] [place] Polychromasia LM Ql (Bld) Slight Normal [facility] Comment on above: Order Comment: Speci men Type: BLOOD SPECIMENOrdering Facility: [facility] Address: [address] [place] [address] Performed By: #### 5 7021-8 ####[facility] LABORATORYCLIA [id number] [address] [place] RBC (Bld) [#/Vol] 2.93 10*6/uL Low 3.90-5.20 [facility] Comment on above: Order Comment: Speci men Type: BLOOD SPECIMENOrdering Facility: [facility] Address: [address] [place] [address] Performed By: #### 5 7021-8 ####[facility] LABORATORYCLIA [id number] [address] [place] RED CELL MORPH Reviewed: see result s of individual morphologies Normal [facility] Comment on above: Order Comment: Speci men Type: BLOOD SPECIMENOrdering Facility: [facility] Address: [address] [place] [address] Performed By: #### 5 7021-8 ####[facility] LABORATORYCLIA [id number] [address] Variant lymphocytes/100 WBC (Bld) 16.0 % Normal [facility] Comment on above: Order Comment: Speci men Type: BLOOD SPECIMENOrdering Facility: [facility] Address: [address] [place] [address] Performed By: #### 5 7021-8 ####[facility] LABORATORYCLIA [id number] [address] WBC (Bld) [#/Vol] 9.19 10*3/uL Normal 3.70-11.00 [facility] Comment on above: Order Comment: Speci men Type: BLOOD SPECIMENOrdering Facility: [facility] Address: [address] [place] [address] Performed By: #### 5 7021-8 ####[facility] LABORATORYCLIA [id number] [address] Comprehensive metabolic 2000 panelon 10-24-2022 Albumin [Mass/Vol] 2.8 g/dL Low 3.9-4.9 [facility] Comment on above: Order Comment: Speci men Type: BLOOD SPECIMENOrdering Facility: [facility] Address: [address] [place] [address] Performed By: #### 2 4323-8 ####[facility] LABORATORYCLIA [id number] [address] ALP [Catalytic activity/Vol] 64 U/L Normal 34-123 [facility] Comment on above: Order Comment: Speci men Type: BLOOD SPECIMENOrdering Facility: [facility] Address: [address] [place] [address] Performed By: #### 2 4323-8 ####[facility] LABORATORYCLIA [id number] [place] [address] [place] ALT With P-5'-P [Catalytic activity/Vol] 16 U/L Normal 7-38 [facility] Comment on above: Order Comment: Speci men Type: BLOOD SPECIMENOrdering Facility: [facility] Address: [address] [place] [address] Performed By: #### 2 4323-8 ####[facility] LABORATORYCLIA [id number] [address] STATES OF [facility] Anion gap [Moles/Vol] 8 mmol/L Low 9-18 [facility] Comment on above: Order Comment: Speci men Type: BLOOD SPECIMENOrdering Facility: [facility] Address: [address] [place] [address] Performed By: #### 2 4323-8 ####[facility] LABORATORYCLIA [id number] [address] OF [facility] AST With P-5'-P [Catalytic activity/Vol] 15 U/L Normal 13-35 [facility] Comment on above: Order Comment: Speci men Type: BLOOD SPECIMENOrdering Facility: [facility] Address: [address] [place] [address] Performed By: #### 2 4323-8 ####[facility] LABORATORYCLIA [id number] [address] [place] Bilirubin [Mass/Vol] 0.3 mg/dL Normal 0.2-1.3 [facility] Comment on above: Order Comment: Speci men Type: BLOOD SPECIMENOrdering Facility: [facility] Address: [address] [place] [address] Performed By: #### 2 4323-8 ####[facility] LABORATORYCLIA [id number] [address] STATES OF [facility] Calcium [Mass/Vol] 8.9 mg/dL Normal 8.5-10.2 [facility] Comment on above: Order Comment: Speci men Type: BLOOD SPECIMENOrdering Facility: [facility] Address: [address] [place] [address] Performed By: #### 2 4323-8 ####[facility] LABORATORYCLIA [id number] [place] [address] [place] Chloride [Moles/Vol] 95 mmol/L Low 97-105 [facility] Comment on above: Order Comment: Speci men Type: BLOOD SPECIMENOrdering Facility: [facility] Address: [address] [place] [address] Performed By: #### 2 4323-8 ####[facility] LABORATORYCLIA [id number] [address] [place] CO2 [Moles/Vol] 35 mmol/L High 22-30 [facility] Comment on above: Order Comment: Speci men Type: BLOOD SPECIMENOrdering Facility: [facility] Address: [address] [place] [address] Performed By: #### 2 4323-8 ####[facility] LABORATORYCLIA [id number] [address] STATES OF [facility] Creatinine [Mass/Vol] 1.54 mg/dL High 0.58-0.96 [facility] Comment on above: Order Comment: Speci men Type: BLOOD SPECIMENOrdering Facility: [facility] Address: [address] [place] [address] Performed By: #### 2 4323-8 ####[facility] LABORATORYCLIA [id number] [address] OF [place] ESTIMATED GLOMERULAR FILTRATION RATE 37 mL/min/1.73m??? Low >=60 [facility] Comment on above: Order Comment: Speci men Type: BLOOD SPECIMENOrdering Facility: [facility] Address: [address] [place] [address] Result Comment: Petra mated Glomerular Filtration Rate (eGFR) is calculated using the 2020 CKD-EPI creatinine equation. This equation utilizes serum creatinine, sex, and age as parameters. The creatinine assay has traceable calibration to isotope dilution-mass spectrometry. Refer to KDIGO guidelines for clinical interpretation. In patients with unstable renal function, e.g. those with acute kidney injury, the eGFR may not accurately reflect actual GFR. Performed By: #### 2 4323-8 ####[facility] LABORATORYCLIA [id number] [place] [address] [place] Glucose [Mass/Vol] 193 mg/dL High 74-99 [facility] Comment on above: Order Comment: Luhi men Type: BLOOD SPECIMENOrdering Facility: [facility] Address: [address] [place] [address] Result Comment: The [place] [employer] (ADA) provides guidance for cutoff values for fasting glucose and random glucose. The ADA defines fasting as no caloric intake for at least 8 hours. Fasting plasma glucose results between 100 to 125 mg/dL indicate increased risk for diabetes (prediabetes).Fasting plasma glucose results greater than or equal to 126 mg/dL meet the criteria for diagnosis of diabetes. In the absence of unequivocal hyperglycemia, results should be confirmed by repeat testing. In a patient with classic symptoms of hyperglycemia or hyperglycemic crisis, random plasma glucose results greater than or equal to 200 mg/dL meet the criteria for diagnosis of diabetes.Reference: Standards of Medical Care in Diabetes 2016, [place] [employer]. Diabetes Care. 2016.39(Suppl 1). Performed By: #### 2 4323-8 ####[facility] LABORATORYCLIA [id number] [place] [address] [place] Potassium [Moles/Vol] 4.8 mmol/L Normal 3.7-5.1 [facility] Comment on above: Order Comment: Scott bozena Type: BLOOD SPECIMENOrdering Facility: [facility] Address: [address] [place] [address] Performed By: #### 2 4323-8 ####[facility] LABORATORYCLIA [id number] [place] [address] [place] Protein [Mass/Vol] 5.7 g/dL Low 6.3-8.0 [facility] Comment on above: Order Comment: Luhi bozena Type: BLOOD SPECIMENOrdering Facility: [facility] Address: [address] [place] [address] Performed By: #### 2 4323-8 ####[facility] LABORATORYCLIA [id number] [place] [address] [place] Sodium [Moles/Vol] 138 mmol/L Normal 136-144 [facility] Comment on above: Order Comment: Speci men Type: BLOOD SPECIMENOrdering Facility: [facility] Address: [address] [place] [address] Performed By: #### 2 4323-8 ####[facility] LABORATORYCLIA [id number] [place] [address] [place] Urea nitrogen [Mass/Vol] 36 mg/dL High 7-21 [facility] Comment on above: Order Comment: Speci men Type: BLOOD SPECIMENOrdering Facility: [facility] Address: [address] [place] [address] Performed By: #### 2 4323-8 ####[facility] LABORATORYCLIA [id number] [place] [address] [place] THERAPY NTon 10-24-2022 THERAPY NT Normal [facility] NUTRITIONon 10-23-2022 NUTRITION Normal [facility] Basic metabolic 2000 panelon 10-20-2022 Anion gap [Moles/Vol] 7 mmol/L Low 9-18 [facility] Comment on above: Order Comment: Speci men Type: BLOOD SPECIMENOrdering Facility: [facility] Address: [address] [place] [address] Performed By: #### 2 4321-2 ####[facility] LABORATORYCLIA [id number] [place] [address] [place] Calcium [Mass/Vol] 8.7 mg/dL Normal 8.5-10.2 [facility] Comment on above: Order Comment: Speci men Type: BLOOD SPECIMENOrdering Facility: [facility] Address: [address] [place] [address] Performed By: #### 2 4321-2 ####[facility] LABORATORYCLIA [id number] [place] [address] [place] Chloride [Moles/Vol] 98 mmol/L Normal 97-105 [facility] Comment on above: Order Comment: Speci men Type: BLOOD SPECIMENOrdering Facility: [facility] Address: [address] [address] Performed By: #### 2 4321-2 ####[facility] LABORATORYCLIA [id number] [address] [place] CO2 [Moles/Vol] 32 mmol/L High 22-30 [facility] Comment on above: Order Comment: Speci men Type: BLOOD SPECIMENOrdering Facility: [facility] Address: [address] [place] [address] Performed By: #### 2 4321-2 ####[facility] LABORATORYCLIA [id number] [address] [place] Creatinine [Mass/Vol] 1.57 mg/dL High 0.58-0.96 [facility] Comment on above: Order Comment: Speci men Type: BLOOD SPECIMENOrdering Facility: [facility] Address: [address] [place] [address] Performed By: #### 2 4321-2 ####[facility] [id number] [address] ESTIMATED GLOMERULAR FILTRATION RATE 36 mL/min/1.73m??? Low >=60 [facility] Comment on above: Order Comment: Speci men Type: BLOOD SPECIMENOrdering Facility: [facility] Address: [address] [place] [address] Result Comment: Petra mated Glomerular Filtration Rate (eGFR) is calculated using the 2020 CKD-EPI creatinine equation. This equation utilizes serum creatinine, sex, and age as parameters. The creatinine assay has traceable calibration to isotope dilution-mass spectrometry. Refer to KDIGO guidelines for clinical interpretation. In patients with unstable renal function, e.g. those with acute kidney injury, the eGFR may not accurately reflect actual GFR. Performed By: #### 2 4321-2 ####[facility] LABORATORYCLIA [id number] [address] [place] Glucose [Mass/Vol] 201 mg/dL High 74-99 [facility] Comment on above: Order Comment: Speci men Type: BLOOD SPECIMENOrdering Facility: [facility] Address: [address] [address] Result Comment: The [place] [employer] (ADA) provides guidance for cutoff values for fasting glucose and random glucose. The ADA defines fasting as no caloric intake for at least 8 hours. Fasting plasma glucose results between 100 to 125 mg/dL indicate increased risk for diabetes (prediabetes).Fasting plasma glucose results greater than or equal to 126 mg/dL meet the criteria for diagnosis of diabetes. In the absence of unequivocal hyperglycemia, results should be confirmed by repeat testing. In a patient with classic symptoms of hyperglycemia or hyperglycemic crisis, random plasma glucose results greater than or equal to 200 mg/dL meet the criteria for diagnosis of diabetes.Reference: Standards of Medical Care in Diabetes 2016, [place] [employer]. Diabetes Care. 2016.39(Suppl 1). Performed By: #### 2 4321-2 ####[facility] LABORATORYCLIA [id number] [place] [address] [place] Potassium [Moles/Vol] 4.5 mmol/L Normal 3.7-5.1 [facility] Comment on above: Order Comment: Speci men Type: BLOOD SPECIMENOrdering Facility: [facility] Address: [address] [address] Performed By: #### 2 1-2 ####[facility] LABORATORYCLIA [id number] [place] [address] [place] Sodium [Moles/Vol] 137 mmol/L Normal 136-144 [facility] Comment on above: Order Comment: Speci men Type: BLOOD SPECIMENOrdering Facility: [facility] Address: [address] [address] Performed By: #### 2 1-2 ####[facility] LABORATORYCLIA [id number] [place] [address] [place] Urea nitrogen [Mass/Vol] 29 mg/dL High 7-21 [facility] Comment on above: Order Comment: Speci men Type: BLOOD SPECIMENOrdering Facility: [facility] Address: [address] [address] Performed By: #### 2 4321-2 ####[facility] LABORATORYCLIA [id number] [address] [place] CASE MANAGEMon 10-20-2022 CASE MANAGEM Normal [facility] CBC panel Auto (Bld)on 10-20 Erythrocyte distribution width (RBC) [Ratio] 14.8 % Normal 11.5-15.0 [facility] Comment on above: Order Comment: Speci men Type: BLOOD SPECIMENOrdering Facility: [facility] Address: [address] [place] [address] Performed By: #### 5 8410-2 ####[facility] LABORATORYCLIA [id number] [address] Hematocrit (Bld) [Volume fraction] 27.4 % Low 36.0-46.0 [facility] Comment on above: Order Comment: Speci men Type: BLOOD SPECIMENOrdering Facility: [facility] Address: [address] [place] [address] Performed By: #### 5 8410-2 ####[facility] LABORATORYCLIA [id number] [address] STATES OF [facility] Hemoglobin (Bld) [Mass/Vol] 8.4 g/dL Low 11.5-15.5 [facility] Comment on above: Order Comment: Speci men Type: BLOOD SPECIMENOrdering Facility: [facility] Address: [address] [place] [address] Performed By: #### 5 8410-2 ####[facility] LABORATORYCLIA [id number] [address] STATES [facility] MCH (RBC) [Entitic mass] 29.8 pg Normal 26.0-34.0 [facility] Comment on above: Order Comment: Speci men Type: BLOOD SPECIMENOrdering Facility: [facility] Address: [address] [place] [address] Performed By: #### 5 8410-2 ####[facility] LABORATORYCLIA [id number] [address] STATES [facility] MCHC (RBC) [Mass/Vol] 30.7 g/dL Normal 30.5-36.0 [facility] Comment on above: Order Comment: Speci men Type: BLOOD SPECIMENOrdering Facility: [facility] Address: [address] [place] [address] Performed By: #### 5 8410-2 ####[facility] LABORATORYCLIA [id number] [address] MCV (RBC) [Entitic vol] 97.2 fL Normal 80.0-100.0 [facility] Comment on above: Order Comment: Speci men Type: BLOOD SPECIMENOrdering Facility: [facility] Address: [address] [address] Performed By: #### 5 8410-2 ####[facility] LABORATORYCLIA [id number] [address] STATES OF [facility] Nucleated RBC (Bld) [#/Vol] 0.06 10*3/uL High <0.01 [facility] Comment on above: Order Comment: Speci men Type: BLOOD SPECIMENOrdering Facility: [facility] Address: [address] [place] [address] Performed By: #### 5 8410-2 ####[facility] LABORATORYCLIA [id number] [address] Platelet mean volume (Bld) [Entitic vol] 8.1 fL Low 9.0-12.7 [facility] Comment on above: Order Comment: Speci men Type: BLOOD SPECIMENOrdering Facility: [facility] Address: [address] [address] Performed By: #### 5 8410-2 ####[facility] LABORATORYCLIA [id number] [address] Platelets (Bld) [#/Vol] 303 10*3/uL Normal 150-400 [facility] Comment on above: Order Comment: Speci men Type: BLOOD SPECIMENOrdering Facility: [facility] Address: [address] [address] Performed By: #### 5 8410-2 ####[facility] LABORATORYCLIA [id number] [address] [place] RBC (Bld) [#/Vol] 2.82 10*6/uL Low 3.90-5.20 [facility] Comment on above: Order Comment: Speci men Type: BLOOD SPECIMENOrdering Facility: [facility] Address: [address] [place] [address] Performed By: #### 5 8410-2 ####[facility] LABORATORYCLIA [id number] [address] STATES OF [facility] WBC (Bld) [#/Vol] 8.51 10*3/uL Normal 3.70-11.00 [facility] Comment on above: Order Comment: Speci men Type: BLOOD SPECIMENOrdering Facility: [facility] Address: [address] [place] [address] Performed By: #### 5 8410-2 ####[facility] LABORATORYCLIA [id number] [address] CASE MANAGEMon 10-19-2022 CASE MANAGEM Normal [facility] CBC panel Auto (Bld)on 10-18 Erythrocyte distribution width (RBC) [Ratio] 14.8 % Normal 11.5-15.0 [facility] Comment on above: Order Comment: Speci men Type: BLOOD SPECIMENOrdering Facility: [facility] Address: [address] [place] [address] Performed By: #### 5 8410-2 ####[facility] LABORATORYCLIA [id number] [address] STATES OF [facility] Hematocrit (Bld) [Volume fraction] 27.8 % Low 36.0-46.0 [facility] Comment on above: Order Comment: Speci men Type: BLOOD SPECIMENOrdering Facility: [facility] Address: [address] [place] [address] Performed By: #### 5 8410-2 ####[facility] LABORATORYCLIA [id number] [place] [address] [place] Hemoglobin (Bld) [Mass/Vol] 8.3 g/dL Low 11.5-15.5 [facility] Comment on above: Order Comment: Speci men Type: BLOOD SPECIMENOrdering Facility: [facility] Address: [address] [place] [address] Performed By: #### 5 8410-2 ####[facility] LABORATORYCLIA [id number] [address] MCH (RBC) [Entitic mass] 30.4 pg Normal 26.0-34.0 [facility] Comment on above: Order Comment: Speci men Type: BLOOD SPECIMENOrdering Facility: [facility] Address: [address] [place] [address] Performed By: #### 5 8410-2 ####[facility] LABORATORYCLIA [id number] [address] OF [facility] MCHC (RBC) [Mass/Vol] 29.9 g/dL Low 30.5-36.0 [facility] Comment on above: Order Comment: Speci men Type: BLOOD SPECIMENOrdering Facility: [facility] Address: [address] [place] [address] Performed By: #### 5 8410-2 ####[facility] LABORATORYCLIA [id number] [address] MCV (RBC) [Entitic vol] 101.8 fL High 80.0-100.0 [facility] Comment on above: Order Comment: Speci men Type: BLOOD SPECIMENOrdering Facility: [facility] Address: [address] [place] [address] Performed By: #### 5 8410-2 ####[facility] LABORATORYCLIA [id number] [address] Nucleated RBC (Bld) [#/Vol] 0.03 10*3/uL High <0.01 [facility] Comment on above: Order Comment: Speci men Type: BLOOD SPECIMENOrdering Facility: [facility] Address: [address] [place] [address] Performed By: #### 5 8410-2 ####[facility] LABORATORYCLIA [id number] [address] Platelet mean volume (Bld) [Entitic vol] 9.1 fL Normal 9.0-12.7 [facility] Comment on above: Order Comment: Speci men Type: BLOOD SPECIMENOrdering Facility: [facility] Address: [address] [place] [address] Performed By: #### 5 8410-2 ####[facility] LABORATORYCLIA [id number] [address] [place] Platelets (Bld) [#/Vol] 246 10*3/uL Normal 150-400 [facility] Comment on above: Order Comment: Speci men Type: BLOOD SPECIMENOrdering Facility: [facility] Address: [address] [place] [address] Performed By: #### 5 8410-2 ####[facility] LABORATORYCLIA [id number] [address] [place] RBC (Bld) [#/Vol] 2.73 10*6/uL Low 3.90-5.20 [facility] Comment on above: Order Comment: Speci men Type: BLOOD SPECIMENOrdering Facility: [facility] Address: [address] [place] [address] Performed By: #### 5 8410-2 ####[facility] LABORATORYCLIA [id number] [place] [address] [place] WBC (Bld) [#/Vol] 7.07 10*3/uL Normal 3.70-11.00 [facility] Comment on above: Order Comment: Speci men Type: BLOOD SPECIMENOrdering Facility: [facility] Address: [address] [place] [address] Performed By: #### 5 8410-2 ####[facility] LABORATORYCLIA [id number] [address] [place] NURSING PROGon 10-18-2022 NURSING PROG Normal [facility] THERAPY NTon 10-18-2022 THERAPY NT Normal [facility] THERAPY NT Normal [facility] Basic metabolic 2000 panelon 10-17-2022 Anion gap [Moles/Vol] 10 mmol/L Normal 9-18 [facility] Comment on above: Order Comment: Speci men Type: BLOOD SPECIMENOrdering Facility: [facility] Address: [address] [place] [address] Performed By: #### 2 4321-2 ####[facility] LABORATORYCLIA [id number] [place] [address] [place] Calcium [Mass/Vol] 8.5 mg/dL Normal 8.5-10.2 [facility] Comment on above: Order Comment: Speci men Type: BLOOD SPECIMENOrdering Facility: [facility] Address: [address] [place] [address] Performed By: #### 2 4321-2 ####[facility] LABORATORYCLIA [id number] [place] [address] [place] Chloride [Moles/Vol] 99 mmol/L Normal 97-105 [facility] Comment on above: Order Comment: Speci men Type: BLOOD SPECIMENOrdering Facility: [facility] Address: [address] [place] [address] Performed By: #### 2 4321-2 ####[facility] LABORATORYCLIA [id number] [place] [address] [place] CO2 [Moles/Vol] 28 mmol/L Normal 22-30 [facility] Comment on above: Order Comment: Speci men Type: BLOOD SPECIMENOrdering Facility: [facility] Address: [address] [place] [address] Performed By: #### 2 4321-2 ####[facility] LABORATORYCLIA [id number] [place] [address] [place] Creatinine [Mass/Vol] 1.62 mg/dL High 0.58-0.96 [facility] Comment on above: Order Comment: Speci men Type: BLOOD SPECIMENOrdering Facility: [facility] Address: [address] [address] Performed By: #### 2 4321-2 ####[facility] HOSPITALIA [id number] [place] [id number] [facility] ESTIMATED GLOMERULAR FILTRATION RATE 35 mL/min/1.73m??? Low >=60 [facility] Comment on above: Order Comment: Scott seals Type: BLOOD SPECIMENOrdering Facility: [facility] Address: [address] [address] Result Comment: Petra mated Glomerular Filtration Rate (eGFR) is calculated using the 2020 CKD-EPI creatinine equation. This equation utilizes serum creatinine, sex, and age as parameters. The creatinine assay has traceable calibration to isotope dilution-mass spectrometry. Refer to KDIGO guidelines for clinical interpretation. In patients with unstable renal function, e.g. those with acute kidney injury, the eGFR may not accurately reflect actual GFR. Performed By: #### 2 4321-2 ####[facility] HOSPITALIA [id number] [place] [address] [place] Glucose [Mass/Vol] 164 mg/dL High 74-99 [facility] Comment on above: Order Comment: Scott seals Type: BLOOD SPECIMENOrdering Facility: [facility] Address: [address] [address] Result Comment: The [place] Diabetes [employer] (ADA) provides guidance for cutoff values for fasting glucose and random glucose. The ADA defines fasting as no caloric intake for at least 8 hours. Fasting plasma glucose results between 100 to 125 mg/dL indicate increased risk for diabetes (prediabetes).Fasting plasma glucose results greater than or equal to 126 mg/dL meet the criteria for diagnosis of diabetes. In the absence of unequivocal hyperglycemia, results should be confirmed by repeat testing. In a patient with classic symptoms of hyperglycemia or hyperglycemic crisis, random plasma glucose results greater than or equal to 200 mg/dL meet the criteria for diagnosis of diabetes.Reference: Standards of Medical Care in Diabetes 2016, [place] [employer]. Diabetes Care. 2016.39(Suppl 1). Performed By: #### 2 4321-2 ####[facility] LABORATORYCLIA [id number] [place] [id number] [place] Potassium [Moles/Vol] 3.3 mmol/L Low 3.7-5.1 [facility] Comment on above: Order Comment: Speci men Type: BLOOD SPECIMENOrdering Facility: [facility] Address: [address] [place] [address] Performed By: #### 2 4321-2 ####[facility] LABORATORYCLIA [id number] [address] STATES [facility] Sodium [Moles/Vol] 137 mmol/L Normal 136-144 [facility] Comment on above: Order Comment: Speci men Type: BLOOD SPECIMENOrdering Facility: [facility] Address: [address] [place] [address] Performed By: #### 2 4321-2 ####[facility] LABORATORYCLIA [id number] [address] STATES [facility] Urea nitrogen [Mass/Vol] 41 mg/dL High 7-21 [facility] Comment on above: Order Comment: Speci men Type: BLOOD SPECIMENOrdering Facility: [facility] Address: [address] [place] [address] Performed By: #### 2 4321-2 ####[facility] LABORATORYCLIA [id number] [address] CBC panel Auto (Bld)on 10-17 Erythrocyte distribution width (RBC) [Ratio] 14.6 % Normal 11.5-15.0 [facility] Comment on above: Order Comment: Speci men Type: BLOOD SPECIMENOrdering Facility: [facility] Address: [address] [place] [address] Performed By: #### 5 8410-2 ####[facility] LABORATORYCLIA [id number] [address] Hematocrit (Bld) [Volume fraction] 27.7 % Low 36.0-46.0 [facility] Comment on above: Order Comment: Speci men Type: BLOOD SPECIMENOrdering Facility: [facility] Address: [address] [place] [address] Performed By: #### 5 8410-2 ####[facility] LABORATORYCLIA [id number] [address] Hemoglobin (Bld) [Mass/Vol] 8.5 g/dL Low 11.5-15.5 [facility] Comment on above: Order Comment: Speci men Type: BLOOD SPECIMENOrdering Facility: [facility] Address: [address] [place] [address] Performed By: #### 5 8410-2 ####[facility] LABORATORYCLIA [id number] [address] MCH (RBC) [Entitic mass] 29.9 pg Normal 26.0-34.0 [facility] Comment on above: Order Comment: Speci men Type: BLOOD SPECIMENOrdering Facility: [facility] Address: [address] [place] [address] Performed By: #### 5 8410-2 ####[facility] LABORATORYCLIA [id number] [address] MCHC (RBC) [Mass/Vol] 30.7 g/dL Normal 30.5-36.0 [facility] Comment on above: Order Comment: Speci men Type: BLOOD SPECIMENOrdering Facility: [facility] Address: [address] [place] [address] Performed By: #### 5 8410-2 ####[facility] LABORATORYCLIA [id number] [address] MCV (RBC) [Entitic vol] 97.5 fL Normal 80.0-100.0 [facility] Comment on above: Order Comment: Speci men Type: BLOOD SPECIMENOrdering Facility: [facility] Address: [address] [place] [address] Performed By: #### 5 8410-2 ####[facility] LABORATORYCLIA [id number] [address] Nucleated RBC (Bld) [#/Vol] 0.03 10*3/uL High <0.01 [facility] Comment on above: Order Comment: Speci men Type: BLOOD SPECIMENOrdering Facility: [facility] Address: [address] [place] [address] Performed By: #### 5 8410-2 ####[facility] LABORATORYCLIA [id number] [place] [address] [place] Platelet mean volume (Bld) [Entitic vol] 8.3 fL Low 9.0-12.7 [facility] Comment on above: Order Comment: Speci men Type: BLOOD SPECIMENOrdering Facility: [facility] Address: [address] [place] [address] Performed By: #### 5 8410-2 ####[facility] LABORATORYCLIA [id number] [address] [place] Platelets (Bld) [#/Vol] 275 10*3/uL Normal 150-400 [facility] Comment on above: Order Comment: Speci men Type: BLOOD SPECIMENOrdering Facility: [facility] Address: [address] [place] [address] Performed By: #### 5 8410-2 ####[facility] LABORATORYCLIA [id number] [place] [address] [place] RBC (Bld) [#/Vol] 2.84 10*6/uL Low 3.90-5.20 [facility] Comment on above: Order Comment: Speci men Type: BLOOD SPECIMENOrdering Facility: [facility] Address: [address] [place] [address] Performed By: #### 5 8410-2 ####[facility] LABORATORYCLIA [id number] [place] [address] [place] WBC (Bld) [#/Vol] 6.41 10*3/uL Normal 3.70-11.00 [facility] Comment on above: Order Comment: Speci men Type: BLOOD SPECIMENOrdering Facility: [facility] Address: [address] [place] [address] Performed By: #### 5 8410-2 ####[facility] LABORATORYCLIA [id number] [place] [address] [place] ALLIED HEALTHon 10-16-2022 ALLIED HEALTH Normal [facility] Basic metabolic 2000 panelon 10-16-2022 Anion gap [Moles/Vol] 13 mmol/L Normal 9-18 [facility] Comment on above: Order Comment: Speci men Type: BLOOD SPECIMENOrdering Facility: [facility] Address: [address] [place] [address] Performed By: #### 2 4321-2, 25436-4, 38784-9, 24133-9, 3016-3 ####[facility] LABORATORYCLIA [id number] [place] [id number] [place] Calcium [Mass/Vol] 9.2 mg/dL Normal 8.5-10.2 [facility] Comment on above: Order Comment: Speci men Type: BLOOD SPECIMENOrdering Facility: [facility] Address: [address] [place] [address] Performed By: #### 2 4321-2, 09115-0, 27811-1, 16383-0, 3016-3 ####[facility] LABORATORYCLIA [id number] [place] [id number] [place] Chloride [Moles/Vol] 98 mmol/L Normal 97-105 [facility] Comment on above: Order Comment: Speci men Type: BLOOD SPECIMENOrdering Facility: [facility] Address: [address] [place] [address] Performed By: #### 2 4321-2, 42961-3, 04300-2, 44224-8, 3016-3 ####[facility] LABORATORYCLIA [id number] [place] [id number] [place] CO2 [Moles/Vol] 28 mmol/L Normal 22-30 [facility] Comment on above: Order Comment: Speci men Type: BLOOD SPECIMENOrdering Facility: [facility] Address: [address] [place] [address] Performed By: #### 2 4321-2, 96530-8, 96164-2, 67999-4, 3016-3 ####[facility]PITALCLIA [id number] [place] [address] [place] [facility] Creatinine [Mass/Vol] 1.61 mg/dL High 0.58-0.96 [facility] Comment on above: Order Comment: Speci bozena Type: BLOOD SPECIMENOrdering Facility: [facility] Address: [address] [place] [address] Performed By: #### 2 4321-2, 16012-4, 29626-1, 34587-6, 6-3 ####[facility] HOSPITALIA [id number] [place] [address] [place] ESTIMATED GLOMERULAR FILTRATION RATE 35 mL/min/1.73m??? Low >=60 [facility] Comment on above: Order Comment: Scott seals Type: BLOOD SPECIMENOrdering Facility: [facility] Address: [address] [place] [address] Result Comment: Petra mated Glomerular Filtration Rate (eGFR) is calculated using the 2020 CKD-EPI creatinine equation. This equation utilizes serum creatinine, sex, and age as parameters. The creatinine assay has traceable calibration to isotope dilution-mass spectrometry. Refer to KDIGO guidelines for clinical interpretation. In patients with unstable renal function, e.g. those with acute kidney injury, the eGFR may not accurately reflect actual GFR. Performed By: #### 2 4321-2, 46995-7, 06615-4, 93113-5, 6-3 ####[facility] LABORATORYCLIA [id number] [place] [address] [place] Glucose [Mass/Vol] 173 mg/dL High 74-99 [facility] Comment on above: Order Comment: Luhi bozena Type: BLOOD SPECIMENOrdering Facility: [facility] Address: [address] [place] [address] Result Comment: The [place] [employer] (ADA) provides guidance for cutoff values for fasting glucose and random glucose. The ADA defines fasting as no caloric intake for at least 8 hours. Fasting plasma glucose results between 100 to 125 mg/dL indicate increased risk for diabetes (prediabetes).Fasting plasma glucose results greater than or equal to 126 mg/dL meet the criteria for diagnosis of diabetes. In the absence of unequivocal hyperglycemia, results should be confirmed by repeat testing. In a patient with classic symptoms of hyperglycemia or hyperglycemic crisis, random plasma glucose results greater than or equal to 200 mg/dL meet the criteria for diagnosis of diabetes.Reference: Standards of Medical Care in Diabetes 2016, [place] [employer]. Diabetes Care. 2016.39(Suppl 1). Performed By: #### 2 4321-2, 14492-5, 03117-8, 84940-7, 6-3 ####[facility] LABORATORYCLIA [id number] [place] [address] [place] Potassium [Moles/Vol] 4.2 mmol/L Normal 3.7-5.1 [facility] Comment on above: Order Comment: Speci men Type: BLOOD SPECIMENOrdering Facility: [facility] Address: [address] [place] [address] Performed By: #### 2 4321-2, 47590-3, 32156-9, 60515-8, 3015-3 ####[facility]ITALCLIA [id number] [place] [address] [place] Sodium [Moles/Vol] 139 mmol/L Normal 136-144 [facility] Comment on above: Order Comment: Speci men Type: BLOOD SPECIMENOrdering Facility: [facility] Address: [address] [place] [address] Performed By: #### 2 4321-2, 58687-9, 63544-7, 22107-6, 6-3 ####[facility] LABORATORYCLIA [id number] [place] [id number] [place] Urea nitrogen [Mass/Vol] 51 mg/dL High 7-21 [facility] [facility] Comment on above: Order Comment: Speci men Type: BLOOD SPECIMENOrdering Facility: [facility] Address: [address] [place] [address] Performed By: #### 2 4321-2, 00378-5, 76254-5, 76853-2, 6-3 ####[facility] LABORATORYCLIA [id number] [address] [place] CASE MGT INIT ASSESon 2021 CASE MGT INIT ASSES Normal [facility] CBC W Auto Differential pane l (Bld)on 10-16-2022 Basophils (Bld) [#/Vol] 0.00 10*3/uL Normal <0.11 [facility] Comment on above: Order Comment: Speci men Type: BLOOD SPECIMENOrdering Facility: [facility] Address: [address] [place] [address] Performed By: #### 5 7021-8 ####[facility] LABORATORYCLIA [id number] [address] Basophils/100 WBC (Bld) 0.0 % Normal A [facility] Comment on above: Order Comment: Speci men Type: BLOOD SPECIMENOrdering Facility: [facility] Address: [address] [place] [address] Performed By: #### 5 7021-8 ####[facility] LABORATORYCLIA [id number] [address] Differential cell count method Nom (Bld) Manual Normal [facility] Comment on above: Order Comment: Speci men Type: BLOOD SPECIMENOrdering Facility: [facility] Address: [address] [place] [address] Performed By: #### 5 7021-8 ####[facility] LABORATORYCLIA [id number] [address] Eosinophils (Bld) [#/Vol] 0.00 10*3/uL Normal <0.46 [facility] Comment on above: Order Comment: Speci men Type: BLOOD SPECIMENOrdering Facility: [facility] Address: [address] [place] [address] Performed By: #### 5 7021-8 ####[facility] LABORATORYCLIA [id number] [address] Eosinophils/100 WBC (Bld) 0.0 % Normal [facility] Comment on above: Order Comment: Speci men Type: BLOOD SPECIMENOrdering Facility: [facility] Address: [address] [place] [address] Performed By: #### 5 7021-8 ####[facility] LABORATORYCLIA [id number] [address] [place] Erythrocyte distribution width (RBC) [Ratio] 14.4 % Normal 11.5-15.0 [facility] Comment on above: Order Comment: Speci men Type: BLOOD SPECIMENOrdering Facility: [facility] Address: [address] [place] [address] Performed By: #### 5 7021-8 ####[facility] LABORATORYCLIA [id number] [address] [place] Hematocrit (Bld) [Volume fraction] 32.7 % Low 36.0-46.0 [facility] Comment on above: Order Comment: Speci men Type: BLOOD SPECIMENOrdering Facility: [facility] Address: [address] [place] [address] Performed By: #### 5 7021-8 ####[facility] LABORATORYCLIA [id number] [address] [place] Hemoglobin (Bld) [Mass/Vol] 10.1 g/dL Low 11.5-15.5 [facility] Comment on above: Order Comment: Speci men Type: BLOOD SPECIMENOrdering Facility: [facility] Address: [address] [place] [address] Performed By: #### 5 7021-8 ####[facility] LABORATORYCLIA [id number] [place] [address] [place] Lymphocytes (Bld) [#/Vol] 1.04 10*3/uL Normal 1.00-4.00 [facility] Comment on above: Order Comment: Speci men Type: BLOOD SPECIMENOrdering Facility: [facility] Address: [address] [place] [address] Performed By: #### 5 7021-8 ####[facility] LABORATORYCLIA [id number] [address] Lymphocytes/100 WBC (Bld) 9.0 % Normal [facility] Comment on above: Order Comment: Speci men Type: BLOOD SPECIMENOrdering Facility: [facility] Address: [address] [place] [address] Performed By: #### 5 7021-8 ####[facility] LABORATORYCLIA [id number] [address] MCH (RBC) [Entitic mass] 30.1 pg Normal 26.0-34.0 [facility] Comment on above: Order Comment: Speci men Type: BLOOD SPECIMENOrdering Facility: [facility] Address: [address] [place] [address] Performed By: #### 5 7021-8 ####[facility] LABORATORYCLIA [id number] [address] OF [facility] MCHC (RBC) [Mass/Vol] 30.9 g/dL Normal 30.5-36.0 [facility] Comment on above: Order Comment: Speci men Type: BLOOD SPECIMENOrdering Facility: [facility] Address: [address] [place] [address] Performed By: #### 5 7021-8 ####[facility] LABORATORYCLIA [id number] [address] MCV (RBC) [Entitic vol] 97.6 fL Normal 80.0-100.0 [facility] Comment on above: Order Comment: Speci men Type: BLOOD SPECIMENOrdering Facility: [facility] Address: [address] [place] [address] Performed By: #### 5 7021-8 ####[facility] LABORATORYCLIA [id number] [address] Metamyelocytes/100 WBC (Bld) 4.0 % Normal [facility] Comment on above: Order Comment: Speci men Type: BLOOD SPECIMENOrdering Facility: [facility] Address: [address] [place], [place] [id number] Performed By: #### 5 7021-8 ####[facility] LABORATORYCLIA [id number] [address] [place] Monocytes (Bld) [#/Vol] 0.81 10*3/uL Normal <0.87 [facility] Comment on above: Order Comment: Speci men Type: BLOOD SPECIMENOrdering Facility: [facility] Address: [address] [place] [address] Performed By: #### 5 7021-8 ####[facility] LABORATORYCLIA [id number] [address] Monocytes/100 WBC (Bld) 7.0 % Normal A [facility] Comment on above: Order Comment: Speci men Type: BLOOD SPECIMENOrdering Facility: [facility] Address: [address] [place] [address] Performed By: #### 5 7021-8 ####[facility] LABORATORYCLIA [id number] [address] [place] MYELO% 1.0 % Normal [facility] Comment on above: Order Comment: Speci men Type: BLOOD SPECIMENOrdering Facility: [facility] Address: [address] [place] [address] Performed By: #### 5 7021-8 ####[facility] LABORATORYCLIA [id number] [address] [place] Neutrophils (Bld) [#/Vol] 9.10 10*3/uL High 1.45-7.50 [facility] Comment on above: Order Comment: Speci men Type: BLOOD SPECIMENOrdering Facility: [facility] Address: [address] [place] [address] Performed By: #### 5 7021-8 ####[facility] LABORATORYCLIA [id number] [address] [place] Neutrophils/100 WBC (Bld) 79.0 % Normal [facility] Comment on above: Order Comment: Speci men Type: BLOOD SPECIMENOrdering Facility: [facility] Address: [address] [address] Performed By: #### 5 7021-8 ####[facility] LABORATORYCLIA [id number] [address] Nucleated RBC (Bld) [#/Vol] 10*3/uL Normal <0.01 [facility] Comment on above: Order Comment: Speci men Type: BLOOD SPECIMENOrdering Facility: [facility] Address: [address] [place] [address] Result Comment: This result was previously suppressed from the chart. Performed By: #### 5 7021-8 ####[facility] LABORATORYCLIA [id number] [address] Nucleated RBC/100 WBC (Bld) [Ratio] 0.0 /100 WBC Normal [facility] Comment on above: Order Comment: Speci men Type: BLOOD SPECIMENOrdering Facility: [facility] Address: [address] [place] [address] Performed By: #### 5 7021-8 ####[facility] LABORATORYCLIA [id number] [address] Platelet mean volume (Bld) [Entitic vol] 8.6 fL Low 9.0-12.7 [facility] Comment on above: Order Comment: Speci men Type: BLOOD SPECIMENOrdering Facility: [facility] Address: [address] [place] [address] Performed By: #### 5 7021-8 ####[facility] LABORATORYCLIA [id number] [address] [place] Platelets (Bld) [#/Vol] 408 10*3/uL High 150-400 [facility] Comment on above: Order Comment: Speci men Type: BLOOD SPECIMENOrdering Facility: [facility] Address: [address] [place] [address] Performed By: #### 5 7021-8 ####[facility] LABORATORYCLIA [id number] [address] [place] Platelets Estimate (Bld) [#/Vol] Adequate Normal [facility] Comment on above: Order Comment: Speci men Type: BLOOD SPECIMENOrdering Facility: [facility] Address: [address] [place] [address] Performed By: #### 5 7021-8 ####[facility] LABORATORYCLIA [id number] [address] Polychromasia LM Ql (Bld) Slight Normal [facility] Comment on above: Order Comment: Speci men Type: BLOOD SPECIMENOrdering Facility: [facility] Address: [address] [address] Performed By: #### 5 7021-8 ####[facility] LABORATORYCLIA [id number] [address] RBC (Bld) [#/Vol] 3.35 10*6/uL Low 3.90-5.20 [facility] Comment on above: Order Comment: Speci men Type: BLOOD SPECIMENOrdering Facility: [facility] Address: [address] [address] Performed By: #### 5 7021-8 ####[facility] LABORATORYCLIA [id number] [address] RED CELL MORPH Reviewed: see result s of individual morphologies Normal [facility] Comment on above: Order Comment: Speci men Type: BLOOD SPECIMENOrdering Facility: [facility] Address: [address] [address] Performed By: #### 5 7021-8 ####[facility] LABORATORYCLIA [id number] [address] WBC (Bld) [#/Vol] 11.52 10*3/uL High 3.70-11.00 [facility] Comment on above: Order Comment: Speci men Type: BLOOD SPECIMENOrdering Facility: [facility] Address: [address] [address] Performed By: #### 5 7021-8 ####[facility] LABORATORYCLIA [id number] [address] [place] CONSULTon 10-16-2022 CONSULT Normal [facility] CONSULT Normal [facility] CONSULT PROGon 10-16-2022 CONSULT PROG Normal [facility] ECG COMPLETEon 10-16-2022 ECG COMPLETE Normal [facility] ED PROV NOTEon 10-16-2022 ED PROV NOTE Normal [facility] ED PROV NOTE Normal [facility] HIGH SENSITIVITY TROPONIN To n 10-16-2022 HIGH SENSITIVITY MARIE 103 ng/L High <12 [facility] Comment on above: Order Comment: Speci bozena Type: BLOOD SPECIMENOrdering Facility: [facility] Address: [address] [place] [address] Result Comment: When assessing risk for acute coronary syndromes: In patients undergoing blood draw greater than or equal to 2 hours from symptom onset, with history of very low to moderate risk and non-ischemic ECG, an initial hs-Troponin T less than 12 ng/L AND a 1 hour delta hs-Troponin T less than 3 ng/L should be considered very low risk for 30 day MACE. Performed By: #### H STNT ####[facility] LABORATORYCLIA [id number] [address] HIGH SENSITIVITY MARIE 112 ng/L High <12 [facility] Comment on above: Order Comment: Scott seals Type: BLOOD SPECIMENOrdering Facility: [facility] Address: [address] [place] [address] Result Comment: When assessing risk for acute coronary syndromes: In patients undergoing blood draw greater than or equal to 2 hours from symptom onset, with history of very low to moderate risk and non-ischemic ECG, an initial hs-Troponin T less than 12 ng/L AND a 1 hour delta hs-Troponin T less than 3 ng/L should be considered very low risk for 30 day MACE. Performed By: #### H STNT ####[facility] LABORATORYCLIA [id number] [address] [place] HISTORY PHYSICALon HISTORY PHYSICAL Normal [facility] Magnesium SerPl-mCncon 10-16 Magnesium [Mass/Vol] 1.9 mg/dL Normal 1.7-2.3 [facility] Comment on above: Order Comment: Scott seals Type: BLOOD SPECIMENOrdering Facility: [facility] Address: [address] [place] [address] Performed By: #### 2 4321-2, 79097-0, 28782-0, 96598-0, 3016-3 ####[facility] LABORATORYCLIA [id number] [address] OF [facility] NT-proBNP [facility]on [facility] Natriuretic peptide.B prohormone N-Terminal [Mass/Vol] 503 pg/mL High <125 [facility] Comment on above: Order Comment: Scott seals Type: BLOOD SPECIMENOrdering Facility: [facility] Address: [address] [place] [address] Performed By: #### 2 4321-2, 88704-3, 71206-5, 85646-1, 3016-3 ####[facility] LABORATORYCLIA [id number] [address] STATES OF [facility] PT EDon 10-16-2022 PT ED Normal [facility] PT panel Coag (PPP)on 2021 INR Coag (PPP) [Relative time] 1.0 {INR} Normal 0.9-1.3 [facility] Comment on above: Order Comment: Scott seals Type: BLOOD SPECIMENOrdering Facility: [facility] Address: [address] [place] [address] Result Comment: Fatmata min K Antagonist (VKA) Therapeutic Range: INR 2 to 3 (Target INR of 2.5)Note: For patients treated with VKA drugs, such as warfarin, the [employer] [employer] 2012 Guideline recommends a therapeutic INR range of 2 to 3 (target INR of 2.5). This recommendation includes high-risk patients with antiphospholipid syndrome with previous arterial or venous thromboembolism, current-generation mechanical or bioprosthetic aortic heart valve replacement.Note: Patients with mechanical aortic valve replacement and additional risk factors for thromboembolic events (atrial fibrillation, previous thromboembolism, LV dysfunction, hypercoagulable conditions) or an older generation mechanical AVR (i.e., ball in-Cage) or any mechanical MVR should have a INR therapeutic range of 2.5 to 3.5 (target INR of 3).Miladys GH, et al. Chest 2012, 141:7S-47SNishimelroy RA, et al. [facility] 2017, 70: 252-289 Performed By: #### 3 4528-0, 87601-5 ####[facility] HOSPITALCLIA [id number] [place] [address] [place] PT Coag (PPP) [Time] 10.4 s Normal 9.7-13.0 [facility] Comment on above: Order Comment: Speci men Type: BLOOD SPECIMENOrdering Facility: [facility] Address: [address] [place] [address] Performed By: #### 3 4528-0, 76091-0 ####[facility] H[facility]PITALIA [id number] [address] Procalcitonin [facility] 1 12-17-2021 Procalcitonin [Mass/Vol] 0.09 ng/mL High <0.09 [facility] Comment on above: Order Comment: Scott seals Type: BLOOD SPECIMENOrdering Facility: [facility] Address: [address] [place] [address] Result Comment: For a guided interpretation of test results, please visit the Change in Procalcitonin Calculator, [email or web address]. Performed By: #### 2 4321-2, 43601-5, 35744-2, 34126-0, 3016-3 ####[facility] LABORATORYCLIA [id number] [address] OF [place] SARS-CoV-2 RNA Resp Ql IGGY+p robeon 10-16-2022 SARS-CoV-2 (COVID-19) RNA IGGY+probe Ql (Resp) COVID 19 RESULT: SARS-CoV-2 (Agent of COVID-19) Not Detected by RT-PCR or equivalent method. This test has been authorized by FDA under an Emergency Use Authorization (EUA). Normal [facility] Comment on above: Performed By: #### 9 4500-6 ####[facility] LABORATORYCLIA [id number] [address] OF [facility] TSH SerPl-aCncon 10-16-2022 TSH Qn 4.350 m[IU]/L High 0.270-4.200 [facility] Comment on above: Order Comment: Speci men Type: BLOOD SPECIMENOrdering Facility: [facility] Address: [address] [place] [address] Performed By: #### 2 4321-2, 89985-4, 26727-4, 52438-5, 3016-3 ####[facility] LABORATORYCLIA [id number] [address] [place] US DVT LOWER BILon US DVT LOWER CHERISE Normal [facility] Urinalysis complete panel (U )on 10-16-2022 Bacteria LM.HPF (Urine sed) [#/Area] Few Abnormal None Seen [facility] Comment on above: Order Comment: Speci men Type: URINE SPECIMENOrdering Facility: [facility] Address: [address] [place] [address] Performed By: #### 2 4356-8 ####[facility] LABORATORYCLIA [id number] [address] STATES [facility] Bilirubin Ql (U) Negative Normal Negative [facility] Comment on above: Order Comment: Speci men Type: URINE SPECIMENOrdering Facility: [facility] Address: [address] [place] [address] Performed By: #### 2 4356-8 ####[facility] LABORATORYCLIA [id number] [address] Clarity (Unsp spec) Dense Turbid Abnormal Clear [facility] Comment on above: Order Comment: Speci men Type: URINE SPECIMENOrdering Facility: [facility] Address: [address] [address] Performed By: #### 2 4356-8 ####[facility] LABORATORYCLIA [id number] [address] STATES OF [facility] Color (U) Light [place] Abnormal yellow [facility] Comment on above: Order Comment: Speci men Type: URINE SPECIMENOrdering Facility: [facility] Address: [address] [place] [address] Performed By: #### 2 4356-8 ####[facility] LABORATORYCLIA [id number] [place] [address] [place] Epithelial cells LM.HPF (Urine sed) [#/Area] Few Normal [facility] Comment on above: Order Comment: Speci men Type: URINE SPECIMENOrdering Facility: [facility] Address: [address] [place] [address] Performed By: #### 2 4356-8 ####[facility] LABORATORYCLIA [id number] [place] [address] [place] Glucose Test strip (U) [Mass/Vol] Negative Normal Trace, Negative [facility] Comment on above: Order Comment: Speci men Type: URINE SPECIMENOrdering Facility: [facility] Address: [address] [place] [address] Performed By: #### 2 4356-8 ####[facility] LABORATORYCLIA [id number] [place] [address] [place] Hemoglobin Ql (U) 3+ Abnormal Negative, Trace [facility] Comment on above: Order Comment: Speci men Type: URINE SPECIMENOrdering Facility: [facility] Address: [address] [place] [address] Performed By: #### 2 4356-8 ####[facility] LABORATORYCLIA [id number] [address] [place] Ketones Ql (U) Negative Normal Negative, Trace [facility] Comment on above: Order Comment: Speci men Type: URINE SPECIMENOrdering Facility: [facility] Address: [address] [place] [address] Performed By: #### 2 4356-8 ####[facility]ORATORYCLIA [id number] [address] Leukocyte esterase Test strip Ql (U) 500 Ha/mL Abnormal Negative, 25 Ha/mL [facility] Comment on above: Order Comment: Speci men Type: URINE SPECIMENOrdering Facility: [facility] Address: [address] [place] [address] Performed By: #### 2 4356-8 ####[facility] LABORATORYCLIA [id number] [address] Nitrite Ql (U) Negative Normal Negative [facility] Comment on above: Order Comment: Speci men Type: URINE SPECIMENOrdering Facility: [facility] Address: [address] [place] [address] Performed By: #### 2 4356-8 ####[facility] LABORATORYCLIA [id number] [address] pH (U) 7.0 [pH] Normal 5.0-8.0 [facility] Comment on above: Order Comment: Speci men Type: URINE SPECIMENOrdering Facility: [facility] Address: [address] [place] [address] Performed By: #### 2 4356-8 ####[facility] LABORATORYCLIA [id number] [address] Protein (U) [Mass/Vol] 1+ Abnormal Trace , Negative [facility] Comment on above: Order Comment: Speci men Type: URINE SPECIMENOrdering Facility: [facility] Address: [address] [place] [address] Performed By: #### 2 4356-8 ####[facility] LABORATORYCLIA [id number] [address] RBC LM.HPF (Urine sed) [#/Area] /[HPF] Abnormal 0-3 /HPF [facility] Comment on above: Order Comment: Speci men Type: URINE SPECIMENOrdering Facility: [facility] Address: [address] [place] [address] Performed By: #### 2 4356-8 ####[facility]PITALCLIA [id number] [address] Specific gravity (U) [Rel density] 1.010 Normal 1.005-1.030 [facility] Comment on above: Order Comment: Speci men Type: URINE SPECIMENOrdering Facility: [facility] Address: [address] [place] [address] Performed By: #### 2 4356-8 ####[facility] LABORATORYCLIA [id number] [address] Urobilinogen Ql (U) Normal Normal Negative [facility] Comment on above: Order Comment: Speci men Type: URINE SPECIMENOrdering Facility: [facility] Address: [address] [place] [address] Performed By: #### 2 4356-8 ####[facility] LABORATORYCLIA [id number] [address] WBC LM.HPF (Urine sed) [#/Area] /[HPF] Abnormal 0-5 /HPF [facility] Comment on above: Order Comment: Speci men Type: URINE SPECIMENOrdering Facility: [facility] Address: [address] [place] [address] Performed By: #### 2 4356-8 ####[facility] LABORATORYCLIA [id number] [address] Yeast.budding LM.HPF (Urine sed) [#/Area] Moderate Abnormal None Seen [facility] Comment on above: Order Comment: Speci men Type: URINE SPECIMENOrdering Facility: [facility] Address: [address] [place] [address] Performed By: #### 2 4356-8 ####[facility] LABORATORYCLIA [id number] [address] Urinalysis complete pnl Uron 10-16-2022 Urinalysis complete panel (U) Abnormal [facility] Comment on above: Order Comment: Speci men Type: URINE SPECIMENOrdering Facility: [facility] Address: [address] [place] [address], [place] [address] Performed By: #### 2 4356-8 ####[facility] LABORATORYCLIA [id number] [address] OF [place] XR CHEST 1V FRONTALon 2021 XR CHEST 1V FRONTAL Normal [facility] aPTT PPPon 10-16-2022 aPTT Coag (PPP) [Time] 24.5 s Normal 23.0-32.4 [facility] Comment on above: Order Comment: Speci men Type: BLOOD SPECIMENOrdering Facility: [facility] Address: [address] [place] [address] Performed By: #### 3 4528-0, 34342-4 ####[facility] LABORATORYCLIA [id number] [address] ED NOTEon 10-15-2022 ED NOTE Normal [facility] CNPNon 10-03-2022 CNPN Normal [facility] CNPTOUTREACHon 09-25-2022 CNPTOUTREACH Normal [facility] CNPTOUTREACHon 09-15-2022 CNPTOUTREACH Normal [facility] CNPNon 09-11-2022 CNPN Normal [facility] CNPTOUTREACHon 09-08-2022 CNPTOUTREACH Normal [facility] CNPTOUTREACHon 09-05-2022 CNPTOUTREACH Normal [facility] CNPTOUTREACHon 09-01-2022 CNPTOUTREACH Normal [facility] CNNURSEon 08-30-2022 CNNURSE Normal [facility] CNPNon 08-30-2022 CNPN Normal [facility] CNPNon 08-29-2022 CNPN Normal [facility] CNPNon 08-28-2022 CNPN Normal [facility] CNPTOUTREACHon 08-28-2022 CNPTOUTREACH Normal [facility] Basic metabolic 2000 panelon 08-27-2022 Anion gap [Moles/Vol] 10 mmol/L Normal 07-16 [facility] Comment on above: Order Comment: Speci men Type: BLOOD SPECIMENOrdering Facility: [facility] Address: [address] [place] [address] Performed By: #### 2 4321-2 ####[facility] LABORATORYCLIA [id number] [place] [address] [place] Calcium [Mass/Vol] 8.9 mg/dL Normal 8.5-10.2 [facility] Comment on above: Order Comment: Speci men Type: BLOOD SPECIMENOrdering Facility: [facility] Address: [address] [place] [address] Performed By: #### 2 4321-2 ####[facility] LABORATORYCLIA [id number] [address] [place] Chloride [Moles/Vol] 92 mmol/L Low 97-105 [facility] Comment on above: Order Comment: Speci men Type: BLOOD SPECIMENOrdering Facility: [facility] Address: [address] [place] [address] Performed By: #### 2 4321-2 ####[facility] LABORATORYCLIA [id number] [address] [place] CO2 [Moles/Vol] 31 mmol/L High 22-30 [facility] Comment on above: Order Comment: Speci men Type: BLOOD SPECIMENOrdering Facility: [facility] Address: [address] [place] [address] Performed By: #### 2 4321-2 ####[facility] LABORATORYCLIA [id number] [place] [address] [place] Creatinine [Mass/Vol] 1.50 mg/dL High 0.58-0.96 [facility] Comment on above: Order Comment: Speci men Type: BLOOD SPECIMENOrdering Facility: [facility] Address: [address] [place] [address] Performed By: #### 2 4321-2 ####[facility] LABORATORYCLIA [id number] [address] [place] ESTIMATED GLOMERULAR FILTRATION RATE 39 mL/min/1.73m??? Low >=60 [facility] Comment on above: Order Comment: Scott seals Type: BLOOD SPECIMENOrdering Facility: [facility] Address: [place] [address] Result Comment: Petra mated Glomerular Filtration Rate (eGFR) is calculated using the 2020 CKD-EPI creatinine equation. This equation utilizes serum creatinine, sex, and age as parameters. The creatinine assay has traceable calibration to isotope dilution-mass spectrometry. Refer to KDIGO guidelines for clinical interpretation. In patients with unstable renal function, e.g. those with acute kidney injury, the eGFR may not accurately reflect actual GFR. Performed By: #### 2 4321-2 ####[facility] LABORATORYCLIA [id number] [place] [address] [place] Glucose [Mass/Vol] 309 mg/dL High 74-99 [facility] Comment on above: Order Comment: Scott seals Type: BLOOD SPECIMENOrdering Facility: [facility] Address: [address] [place] [address] Result Comment: The [place] Diabetes [employer] (ADA) provides guidance for cutoff values for fasting glucose and random glucose. The ADA defines fasting as no caloric intake for at least 8 hours. Fasting plasma glucose results between 100 to 125 mg/dL indicate increased risk for diabetes (prediabetes).Fasting plasma glucose results greater than or equal to 126 mg/dL meet the criteria for diagnosis of diabetes. In the absence of unequivocal hyperglycemia, results should be confirmed by repeat testing. In a patient with classic symptoms of hyperglycemia or hyperglycemic crisis, random plasma glucose results greater than or equal to 200 mg/dL meet the criteria for diagnosis of diabetes.Reference: Standards of Medical Care in Diabetes 2016, [place] [employer]. Diabetes Care. 2016.39(Suppl 1). Performed By: #### 2 4321-2 ####[facility] LABORATORYCLIA [id number] [place] [address] [place] Potassium [Moles/Vol] 4.3 mmol/L Normal 3.7-5.1 [facility] Comment on above: Order Comment: Scott seals Type: BLOOD SPECIMENOrdering Facility: [facility] Address: [address] [place] [address] Performed By: #### 2 4321-2 ####[facility] LABORATORYCLIA [id number] [place] [address] [place] Sodium [Moles/Vol] 133 mmol/L Low 136-144 [facility] Comment on above: Order Comment: Speci men Type: BLOOD SPECIMENOrdering Facility: [facility] Address: [address] [place] [address] Performed By: #### 2 4321-2 ####[facility] LABORATORYCLIA [id number] [place] [address] [place] Urea nitrogen [Mass/Vol] 53 mg/dL High 7-21 [facility] Comment on above: Order Comment: Speci men Type: BLOOD SPECIMENOrdering Facility: [facility] Address: [address] [place] [address] Performed By: #### 2 4321-2 ####[facility] LABORATORYCLIA [id number] [place] [address] [place] CASE MANAGEMon 08-27-2022 CASE MANAGEM Normal [facility] CNDSon 08-27-2022 CNDS Normal [facility] Bacteria Ur Culton Bacteria identified Cx Nom (U) Abnormal [facility] Comment on above: Performed By: #### 6 30-4 ####[facility] LABORATORYCLIA [id number] [place] [address] [place] Basic metabolic 2000 panelon 08-26-2022 Anion gap [Moles/Vol] 10 mmol/L Normal 9-18 [facility] Comment on above: Order Comment: Speci men Type: BLOOD SPECIMENOrdering Facility: [facility] Address: [address] [place] [address] Performed By: #### 2 4321-2 ####[facility] LABORATORYCLIA [id number] [place] [address] [place] Calcium [Mass/Vol] 9.1 mg/dL Normal 8.5-10.2 [facility] Comment on above: Order Comment: Speci men Type: BLOOD SPECIMENOrdering Facility: [facility] Address: [address] [address] Performed By: #### 2 4321-2 ####[facility] LABORATORYCLIA [id number] [address] [place] Chloride [Moles/Vol] 90 mmol/L Low 97-105 [facility] Comment on above: Order Comment: Speci men Type: BLOOD SPECIMENOrdering Facility: [facility] Address: [address] [place] [address] Performed By: #### 2 4321-2 ####[facility] LABORATORYCLIA [id number] [address] [place] CO2 [Moles/Vol] 31 mmol/L High 22-30 [facility] Comment on above: Order Comment: Speci men Type: BLOOD SPECIMENOrdering Facility: [facility] Address: [address] [place] [address] Performed By: #### 2 4321-2 ####[facility] LABORATORYCLIA [id number] [address] STATES OF [facility] Creatinine [Mass/Vol] 1.53 mg/dL High 0.58-0.96 [facility] Comment on above: Order Comment: Speci men Type: BLOOD SPECIMENOrdering Facility: [facility] Address: [address] [place] [address] Performed By: #### 2 4321-2 ####[facility] LABORATORYCLIA [id number] [address] ESTIMATED GLOMERULAR FILTRATION RATE 38 mL/min/1.73m??? Low >=60 [facility] Comment on above: Order Comment: Speci men Type: BLOOD SPECIMENOrdering Facility: [facility] Address: [address] [place] [address] Result Comment: Petra mated Glomerular Filtration Rate (eGFR) is calculated using the 2020 CKD-EPI creatinine equation. This equation utilizes serum creatinine, sex, and age as parameters. The creatinine assay has traceable calibration to isotope dilution-mass spectrometry. Refer to KDIGO guidelines for clinical interpretation. In patients with unstable renal function, e.g. those with acute kidney injury, the eGFR may not accurately reflect actual GFR. Performed By: #### 2 4321-2 ####[facility] LABORATORYCLIA [id number] [place] [address] [place] Glucose [Mass/Vol] 337 mg/dL High 74-99 [facility] Comment on above: Order Comment: Scott seals Type: BLOOD SPECIMENOrdering Facility: [facility] Address: [address] [place] [address] Result Comment: The [place] Diabetes Association (ADA) provides guidance for cutoff values for fasting glucose and random glucose. The ADA defines fasting as no caloric intake for at least 8 hours. Fasting plasma glucose results between 100 to 125 mg/dL indicate increased risk for diabetes (prediabetes).Fasting plasma glucose results greater than or equal to 126 mg/dL meet the criteria for diagnosis of diabetes. In the absence of unequivocal hyperglycemia, results should be confirmed by repeat testing. In a patient with classic symptoms of hyperglycemia or hyperglycemic crisis, random plasma glucose results greater than or equal to 200 mg/dL meet the criteria for diagnosis of diabetes.Reference: Standards of Medical Care in Diabetes 2016, [place] [employer]. Diabetes Care. 2016.39(Suppl 1). Performed By: #### 2 4321-2 ####[facility] LABORATORYCLIA [id number] [place] [address] [place] Potassium [Moles/Vol] 4.7 mmol/L Normal 3.7-5.1 [facility] Comment on above: Order Comment: Scott seals Type: BLOOD SPECIMENOrdering Facility: [facility] Address: [address] [place] [place] [address] Performed By: #### 2 4321-2 ####[facility] LABORATORYCLIA [id number] [place] [address] [place] Sodium [Moles/Vol] 131 mmol/L Low 136-144 [facility] Comment on above: Order Comment: Scott seals Type: BLOOD SPECIMENOrdering Facility: [facility] Address: [address] [place] [address] Performed By: #### 2 4321-2 ####[facility] LABORATORYCLIA [id number] [place] [address] [place] Urea nitrogen [Mass/Vol] 39 mg/dL High 7-21 [facility] Comment on above: Order Comment: Speci men Type: BLOOD SPECIMENOrdering Facility: [facility] Address: [address] [place] [address] Performed By: #### 2 4321-2 ####[facility] LABORATORYCLIA [id number] [place] [address] [place] CNPNon 08-26-2022 CNPN Normal [facility] CONSULT PROGon 08-26-2022 CONSULT PROG Normal [facility] NURSING PROGon 08-26-2022 NURSING PROG Normal [facility] Urinalysis complete panel (U )on 08-26-2022 Bilirubin Ql (U) Negative Normal Negative [facility] Comment on above: Order Comment: Speci men Type: URINE SPECIMENOrdering Facility: [facility] Address: [address] [place] [address] Performed By: #### 2 4356-8 ####[facility] LABORATORYCLIA [id number] [place] [address] [place] Clarity (Unsp spec) Clear Normal Clear [facility] Comment on above: Order Comment: Speci men Type: URINE SPECIMENOrdering Facility: [facility] Address: [address] [place] [address] Performed By: #### 2 4356-8 ####[facility] LABORATORYCLIA [id number] [address] [place] Color (U) Yellow Normal yellow [facility] Comment on above: Order Comment: Speci men Type: URINE SPECIMENOrdering Facility: [facility] Address: [address] [place] [address] Performed By: #### 2 4356-8 ####[facility] LABORATORYCLIA [id number] [place] [address] [place] Epithelial cells LM.HPF (Urine sed) [#/Area] Few Normal [facility] Comment on above: Order Comment: Speci men Type: URINE SPECIMENOrdering Facility: [facility] Address: [address] [place] [address] Performed By: #### 2 4356-8 ####[facility]ORATORYCLIA [id number] [address] Glucose Test strip (U) [Mass/Vol] 4+ Abnormal Negative [facility] Comment on above: Order Comment: Speci men Type: URINE SPECIMENOrdering Facility: [facility] Address: [address] [place] [address] Performed By: #### 2 4356-8 ####[facility]ORATORYCLIA [id number] [address] [place] Hemoglobin Ql (U) 2+ Abnormal Negative [facility] Comment on above: Order Comment: Speci men Type: URINE SPECIMENOrdering Facility: [facility] Address: [address] [place] [address] Performed By: #### 2 4356-8 ####[facility] LABORATORYCLIA [id number] [address] [place] Ketones Ql (U) Negative Normal Negative [facility] Comment on above: Order Comment: Speci men Type: URINE SPECIMENOrdering Facility: [facility] Address: [address] [place] [address] Performed By: #### 2 4356-8 ####[facility] LABORATORYCLIA [id number] [address] Leukocyte esterase Test strip Ql (U) 500 Ha/mL Abnormal Negative [facility] Comment on above: Order Comment: Speci men Type: URINE SPECIMENOrdering Facility: [facility] Address: [address] [place] [address] Performed By: #### 2 4356-8 ####[facility] LABORATORYCLIA [id number] [place] [address] [place] Nitrite Ql (U) Negative Normal Negative [facility] Comment on above: Order Comment: Speci men Type: URINE SPECIMENOrdering Facility: [facility] Address: [address] [place] [address] Performed By: #### 2 4356-8 ####[facility] LABORATORYCLIA [id number] [address] pH (U) 6.5 [pH] Normal 5.0-8.0 [facility] Comment on above: Order Comment: Speci men Type: URINE SPECIMENOrdering Facility: [facility] Address: [address] [place] [address] Performed By: #### 2 4356-8 ####[facility] LABORATORYCLIA [id number] [address] STATES [facility] Protein (U) [Mass/Vol] Trace Abnormal Negative [facility] Comment on above: Order Comment: Speci men Type: URINE SPECIMENOrdering Facility: [facility] Address: [address] [place] [address] Performed By: #### 2 4356-8 ####[facility] LABORATORYCLIA [id number] [address] STATES [facility] RBC LM.HPF (Urine sed) [#/Area] 3-5 /HPF Abnormal 0-3 /HPF [facility] Comment on above: Order Comment: Speci men Type: URINE SPECIMENOrdering Facility: [facility] Address: [address] [place] [address] Performed By: #### 2 4356-8 ####[facility] LABORATORYCLIA [id number] [address] Specific gravity (U) [Rel density] 1.019 Normal 1.005-1.030 [facility] Comment on above: Order Comment: Speci men Type: URINE SPECIMENOrdering Facility: [facility] Address: [address] [place] [address] Performed By: #### 2 4356-8 ####[facility] LABORATORYCLIA [id number] [address] Urobilinogen Ql (U) Normal Normal Negative [facility] Comment on above: Order Comment: Speci men Type: URINE SPECIMENOrdering Facility: [facility] Address: [address] [place] [address] Performed By: #### 2 4356-8 ####[facility] LABORATORYCLIA [id number] [place] [address] [place] WBC LM.HPF (Urine sed) [#/Area] 6-10 /HPF Abnormal 0-5 /HPF [facility] Comment on above: Order Comment: Speci men Type: URINE SPECIMENOrdering Facility: [facility] Address: [address] [place] [address] Performed By: #### 2 4356-8 ####[facility] LABORATORYCLIA [id number] [place] [address] [place] Basic metabolic 2000 panelon 08-25-2022 Anion gap [Moles/Vol] 10 mmol/L Normal 9-18 [facility] Comment on above: Order Comment: Speci men Type: BLOOD SPECIMENOrdering Facility: [facility] Address: [address] [address] Performed By: #### 2 4321-2 ####[facility] LABORATORYCLIA [id number] [place] [address] [place] Calcium [Mass/Vol] 8.7 mg/dL Normal 8.5-10.2 [facility] Comment on above: Order Comment: Speci men Type: BLOOD SPECIMENOrdering Facility: [facility] Address: [address] [address] Performed By: #### 2 4321-2 ####[facility] LABORATORYCLIA [id number] [place] [address] [place] Chloride [Moles/Vol] 98 mmol/L Normal 97-105 [facility] Comment on above: Order Comment: Speci men Type: BLOOD SPECIMENOrdering Facility: [facility] Address: [address] [address] Performed By: #### 2 4321-2 ####[facility] LABORATORYCLIA [id number] [address] [place] CO2 [Moles/Vol] 31 mmol/L High 22-30 [facility] Comment on above: Order Comment: Speci men Type: BLOOD SPECIMENOrdering Facility: [facility] Address: [address] [place] [address] Performed By: #### 2 4321-2 ####[facility] LABORATORYCLIA [id number] [address] [place] Creatinine [Mass/Vol] 1.76 mg/dL High 0.58-0.96 [facility] Comment on above: Order Comment: Speci men Type: BLOOD SPECIMENOrdering Facility: [facility] Address: [address] [place] [address] Performed By: #### 2 4321-2 ####[facility] LABORATORYCLIA [id number] [address] ESTIMATED GLOMERULAR FILTRATION RATE 32 mL/min/1.73m??? Low >=60 [facility] Comment on above: Order Comment: Speci men Type: BLOOD SPECIMENOrdering Facility: [facility] Address: [address] [place] [address] Result Comment: Petra mated Glomerular Filtration Rate (eGFR) is calculated using the 2020 CKD-EPI creatinine equation. This equation utilizes serum creatinine, sex, and age as parameters. The creatinine assay has traceable calibration to isotope dilution-mass spectrometry. Refer to KDIGO guidelines for clinical interpretation. In patients with unstable renal function, e.g. those with acute kidney injury, the eGFR may not accurately reflect actual GFR. Performed By: #### 2 4321-2 ####[facility] LABORATORYCLIA [id number] [address] [place] Glucose [Mass/Vol] 191 mg/dL High 74-99 [facility] Comment on above: Order Comment: Speci men Type: BLOOD SPECIMENOrdering Facility: [facility] Address: [address] [place] [address] Result Comment: The [place] Diabetes Association (ADA) provides guidance for cutoff values for fasting glucose and random glucose. The ADA defines fasting as no caloric intake for at least 8 hours. Fasting plasma glucose results between 100 to 125 mg/dL indicate increased risk for diabetes (prediabetes).Fasting plasma glucose results greater than or equal to 126 mg/dL meet the criteria for diagnosis of diabetes. In the absence of unequivocal hyperglycemia, results should be confirmed by repeat testing. In a patient with classic symptoms of hyperglycemia or hyperglycemic crisis, random plasma glucose results greater than or equal to 200 mg/dL meet the criteria for diagnosis of diabetes.Reference: Standards of Medical Care in Diabetes 2016, [place] [employer]. Diabetes Care. 2016.39(Suppl 1). Performed By: #### 2 4321-2 ####[facility] LABORATORYCLIA [id number] [address] [place] Potassium [Moles/Vol] 4.4 mmol/L Normal 3.7-5.1 [facility] Comment on above: Order Comment: Speci men Type: BLOOD SPECIMENOrdering Facility: [facility] Address: [address] [place] [address] Performed By: #### 2 1-2 ####[facility] LABORATORYCLIA [id number] [place] [address] [place] Sodium [Moles/Vol] 139 mmol/L Normal 136-144 [facility] Comment on above: Order Comment: Scott esals Type: BLOOD SPECIMENOrdering Facility: [facility] Address: [address] [place] [address] Performed By: #### 2 1-2 ####[facility] LABORATORYCLIA [id number] [address] [place] Urea nitrogen [Mass/Vol] 31 mg/dL High 7-21 [facility] Comment on above: Order Comment: Luhi bozena Type: BLOOD SPECIMENOrdering Facility: [facility] Address: [address] [place] [address] Performed By: #### 2 1-2 ####[facility] LABORATORYCLIA [id number] [address] [place] CASE MANAGEMon 08-25-2022 CASE MANAGEM Normal [facility] CASE MANAGEM Normal [facility] CBC W Auto Differential pane l (Bld)on 08-25-2022 Anisocytosis Ql (Bld) Present [facility] on above: Order Comment: Speci men Type: BLOOD SPECIMENOrdering Facility: [facility] Address: [address] [place] [address] Performed By: #### 5 7021-8 ####[facility] LABORATORYCLIA [id number] [place] [address] [place] Basophils (Bld) [#/Vol] 0.00 10*3/uL Normal <0.11 [facility] Comment on above: Order Comment: Speci men Type: BLOOD SPECIMENOrdering Facility: [facility] Address: [address] [place] [address] Performed By: #### 5 7021-8 ####[facility] LABORATORYCLIA [id number] [place] [address] [place] Basophils/100 WBC (Bld) 0.0 % Normal A [facility] Comment on above: Order Comment: Speci men Type: BLOOD SPECIMENOrdering Facility: [facility] Address: [address] [place] [address] Performed By: #### 5 7021-8 ####[facility] LABORATORYCLIA [id number] [place] [address] [place] Differential cell count method Nom (Bld) Manual Normal [facility] Comment on above: Order Comment: Speci men Type: BLOOD SPECIMENOrdering Facility: [facility] Address: [address] [place] [address] Performed By: #### 5 7021-8 ####[facility] LABORATORYCLIA [id number] [place] [address] [place] Eosinophils (Bld) [#/Vol] 0.44 10*3/uL Normal <0.46 [facility] Comment on above: Order Comment: Speci men Type: BLOOD SPECIMENOrdering Facility: [facility] Address: [address] [place] [address] Performed By: #### 5 7021-8 ####[facility] LABORATORYCLIA [id number] [address] STATES [facility] Eosinophils/100 WBC (Bld) 6.0 % Normal [facility] Comment on above: Order Comment: Speci men Type: BLOOD SPECIMENOrdering Facility: [facility] Address: [address] [place] [address] Performed By: #### 5 7021-8 ####[facility] LABORATORYCLIA [id number] [address] [place] Erythrocyte distribution width (RBC) [Ratio] 14.6 % Normal 11.5-15.0 [facility] Comment on above: Order Comment: Speci men Type: BLOOD SPECIMENOrdering Facility: [facility] Address: [address] [place] [address] Performed By: #### 5 7021-8 ####[facility] LABORATORYCLIA [id number] [address] Hematocrit (Bld) [Volume fraction] 31.7 % Low 36.0-46.0 [facility] Comment on above: Order Comment: Speci men Type: BLOOD SPECIMENOrdering Facility: [facility] Address: [address] [place] [address] Performed By: #### 5 7021-8 ####[facility] LABORATORYCLIA [id number] [address] [place] Hemoglobin (Bld) [Mass/Vol] 9.7 g/dL Low 11.5-15.5 [facility] Comment on above: Order Comment: Speci men Type: BLOOD SPECIMENOrdering Facility: [facility] Address: [address] [place] [address] Performed By: #### 5 7021-8 ####[facility] LABORATORYCLIA [id number] [address] [place] Lymphocytes (Bld) [#/Vol] 1.89 10*3/uL Normal 1.00-4.00 [facility] Comment on above: Order Comment: Speci men Type: BLOOD SPECIMENOrdering Facility: [facility] Address: [address] [place] [address] Performed By: #### 5 7021-8 ####[facility] LABORATORYCLIA [id number] [address] Lymphocytes/100 WBC (Bld) 10.0 % Normal [facility] Comment on above: Order Comment: Speci men Type: BLOOD SPECIMENOrdering Facility: [facility] Address: [address] [place] [address] Performed By: #### 5 7021-8 ####[facility] LABORATORYCLIA [id number] [address] MCH (RBC) [Entitic mass] 29.3 pg Normal 26.0-34.0 [facility] Comment on above: Order Comment: Speci men Type: BLOOD SPECIMENOrdering Facility: [facility] Address: [address] [place] [address] Performed By: #### 5 7021-8 ####[facility] LABORATORYCLIA [id number] [address] MCHC (RBC) [Mass/Vol] 30.6 g/dL Normal 30.5-36.0 [facility] Comment on above: Order Comment: Speci men Type: BLOOD SPECIMENOrdering Facility: [facility] Address: [address] [place] [address] Performed By: #### 5 7021-8 ####[facility] LABORATORYCLIA [id number] [address] OF [place] MCV (RBC) [Entitic vol] 95.8 fL Normal 80.0-100.0 [facility] Comment on above: Order Comment: Speci men Type: BLOOD SPECIMENOrdering Facility: [facility] Address: [address] [place] [address] Performed By: #### 5 7021-8 ####[facility] LABORATORYCLIA [id number] [address] [place] Monocytes (Bld) [#/Vol] 0.44 10*3/uL Normal <0.87 [facility] Comment on above: Order Comment: Speci men Type: BLOOD SPECIMENOrdering Facility: [facility] Address: [address] [address] Performed By: #### 5 7021-8 ####[facility] LABORATORYCLIA [id number] [place] [address] [place] Monocytes/100 WBC (Bld) 6.0 % Normal A [facility] Comment on above: Order Comment: Speci men Type: BLOOD SPECIMENOrdering Facility: [facility] Address: [address] [place] [address] Performed By: #### 5 7021-8 ####[facility] LABORATORYCLIA [id number] [address] [place] Neutrophils (Bld) [#/Vol] 4.51 10*3/uL Normal 1.45-7.50 [facility] Comment on above: Order Comment: Speci men Type: BLOOD SPECIMENOrdering Facility: [facility] Address: [address] [place] [address] Performed By: #### 5 7021-8 ####[facility] LABORATORYCLIA [id number] [address] [place] Neutrophils/100 WBC (Bld) 62.0 % Normal [facility] Comment on above: Order Comment: Speci men Type: BLOOD SPECIMENOrdering Facility: [facility] Address: [address] [place] [address] Performed By: #### 5 7021-8 ####[facility] LABORATORYCLIA [id number] [place] [address] [place] Nucleated RBC (Bld) [#/Vol] 10*3/uL Normal <0.01 [facility] Comment on above: Order Comment: Speci men Type: BLOOD SPECIMENOrdering Facility: [facility] Address: [address] [place] [address] Performed By: #### 5 7021-8 ####[facility] LABORATORYCLIA [id number] [address] [place] Nucleated RBC/100 WBC (Bld) [Ratio] 0.0 /100 WBC Normal [facility] Comment on above: Order Comment: Speci men Type: BLOOD SPECIMENOrdering Facility: [facility] Address: [address] [place] [address] Performed By: #### 5 7021-8 ####[facility] LABORATORYCLIA [id number] [place] [address] [place] Ovalocytes LM Ql (Bld) Moderate Normal [facility] Comment on above: Order Comment: Speci men Type: BLOOD SPECIMENOrdering Facility: [facility] Address: [address] [place] [address] Performed By: #### 5 7021-8 ####[facility] LABORATORYCLIA [id number] [place] [address] [place] Platelet mean volume (Bld) [Entitic vol] 8.2 fL Low 9.0-12.7 [facility] Comment on above: Order Comment: Speci men Type: BLOOD SPECIMENOrdering Facility: [facility] Address: [address] [place] [address] Performed By: #### 5 7021-8 ####[facility] LABORATORYCLIA [id number] [address] [place] Platelets (Bld) [#/Vol] 292 10*3/uL Normal 150-400 [facility] Comment on above: Order Comment: Speci men Type: BLOOD SPECIMENOrdering Facility: [facility] Address: [address] [place] [address] Performed By: #### 5 7021-8 ####[facility] LABORATORYCLIA [id number] [address] [place] Platelets Estimate (Bld) [#/Vol] Adequate Normal [facility] Comment on above: Order Comment: Speci men Type: BLOOD SPECIMENOrdering Facility: [facility] Address: [address] [place] [address] Performed By: #### 5 7021-8 ####[facility] LABORATORYCLIA [id number] [address] Polychromasia LM Ql (Bld) Slight Normal [facility] Comment on above: Order Comment: Speci men Type: BLOOD SPECIMENOrdering Facility: [facility] Address: [address] [place] [address] Performed By: #### 5 7021-8 ####[facility] LABORATORYCLIA [id number] [address] RBC (Bld) [#/Vol] 3.31 10*6/uL Low 3.90-5.20 [facility] Comment on above: Order Comment: Speci men Type: BLOOD SPECIMENOrdering Facility: [facility] Address: [address] [place] [address] Performed By: #### 5 7021-8 ####[facility] LABORATORYCLIA [id number] [address] RED CELL MORPH Reviewed Normal [facility] Comment on above: Order Comment: Speci men Type: BLOOD SPECIMENOrdering Facility: [facility] Address: [address] [place] [address] Performed By: #### 5 7021-8 ####[facility] LABORATORYCLIA [id number] [address] Variant lymphocytes/100 WBC (Bld) 16.0 % Normal [facility] Comment on above: Order Comment: Speci men Type: BLOOD SPECIMENOrdering Facility: [facility] Address: [address] [place] [address] Performed By: #### 5 7021-8 ####[facility] LABORATORYCLIA [id number] [address] WBC (Bld) [#/Vol] 7.27 10*3/uL Normal 3.70-11.00 [facility] Comment on above: Order Comment: Speci men Type: BLOOD SPECIMENOrdering Facility: [facility] Address: [address] [address] Performed By: #### 5 7021-8 ####[facility] LABORATORYCLIA [id number] [address] [place] CONSULTon 08-25-2022 CONSULT Normal [facility] CONSULT PROGon 08-25-2022 CONSULT PROG Normal [facility] SURGICAL PATHOLOGYon 022 CASE REPORT Normal [facility] Comment on above: Order Comment: Speci men Type: TISSUE SPECIMENOrdering Facility: [facility] Address: [address] [address] Result Comment: Surg ical Pathology Report Case: [id number] Provider: Zully Damian DO Collected: 08/25/2022 03:28 AMOrdering Location: [address] Received: 08/25/2022 01:15 PMPathologist: ARIEL Llanospecimens: A) - SKIN PUNCH EXCISION B) - SKIN DIF Performed By: #### S ####[facility] LABCLIA [id number] [address] LABORATORYCLIA [id number] [address] CLINICAL HISTORY bullous rash Normal [facility] Comment on above: Order Comment: Speci men Type: TISSUE SPECIMENOrdering Facility: [facility] Address: [address] [address] Performed By: #### S ####[facility] LABCLIA [id number] [address] LABORATORYCLIA [id number] [address] [place] DIAGNOSIS COMMENT Normal [facility] Comment on above: Order Comment: Speci men Type: TISSUE SPECIMENOrdering Facility: [facility] Address: [address] [address] Result Comment: A. H istologic sections demonstrate a punch biopsy specimen with ulceration and a completely eroded epidermis. Within the superficial dermis, there is a moderate perivascular lymphohistiocytic infiltrate with numerous neutrophils and occasional eosinophils.B. Direct immunofluorescent antibody localization on sections of frozen skin demonstrates positive immunoreactivity for IgG and complement along the basement membrane zone in a linear pattern. There is negative immunoreactivity for IgA and IgM.Taken together, these findings are compatible with a diagnosis of bullous pemphigoid. Clinical correlation is essential.Laboratory Developed Test (LDT) Disclaimer:Performance characteristics of immunohistochemical, immunofluorescent and chromogenic in-situ hybridization tests have been determined by the performing laboratory within [facility]???s [facility] [place] ([facility], [facility], [facility] or [facility]) in a manner consistent with CLIA requirements. One or more of these tests have not been cleared or approved by the FDA. [facility] is regulated under CLIA as qualified to perform high-complexity testing. These tests are used for clinical purposes. They should not be regarded as investigational or for research. Positive and negative controls stain appropriately. Performed By: #### S ####[facility] LABCLIA [id number] [id number] [address] FINAL DIAGNOSIS Normal [facility] Comment on above: Order Comment: Speci men Type: TISSUE SPECIMENOrdering Facility: [facility] Address: [address] [place] [address] Result Comment: A. S kin, left upper arm, punch excision:-Full-thickness epidermal ulcer, see comment.B. Skin, left upper arm, punch biopsy (DIF):-Positive direct immunofluorescence, see comment.DINA/MIO 08/28/2022 Performed By: #### S ####[facility] LABCLIA [id number] [id number] [address] FINAL PERFORMING LAB Normal [facility] Comment on above: Order Comment: Speci men Type: TISSUE SPECIMENOrdering Facility: [facility] Address: [address] [place] [address] Result Comment: Diag nostic interpretation performed at [facility], [facility] [id number] CLIA# [id number] Director: oJse Saleem M.D. Performed By: #### S ####[facility] LABCLIA [id number] [address] LABORATORYCLIA [id number] [address] GROSS DESCRIPTION [facility] Comment on above: Order Comment: Speci men Type: TISSUE SPECIMENOrdering Facility: [facility] Address: [address] [place] [address] Result Comment: A. S KIN PUNCH EXCISIONReceived in formalin is a cylindrical segment of skin and subcutaneous tissue measuring 0.4 x 0.4 x 0.3 cm. On the skin surface there is a 0.4 cm, valenzuela, slightly elevated area. The specimen is bisected. Also received in the same container is a segment of irregular valenzuela soft, adipose tissue measuring 0.4 x 0.2 x 0.2 cm.Totally submitted in one cassette.B. SKIN DIFReceived in Eliud???s is a cylindrical segment of skin measuring 0.4 cm in greatest dimension. The specimen is washed in Malemide. Totally frozen for Direct Immunofluorescence.Gross examination performed at [facility], [facility] [place], [place] [address]VPL 08/25/2022 6:11 PM Performed By: #### S ####[facility] LABCLIA [id number] [address] LABORATORYCLIA [id number] [address] OF [place] CASE REPORT Normal [facility] Comment on above: Order Comment: Speci men Type: TISSUE SPECIMENOrdering Facility: [facility] Address: [address] [place] [address] Result Comment: Surg ical Pathology Report Case: [id number] Provider: Zully Damian DO Collected: 08/25/2022 03:28 AMOrdering Location: [address] Received: 08/25/2022 01:15 PMPathologist: ARIEL Llanospecimens: A) - SKIN PUNCH EXCISION B) - SKIN DIF Performed By: #### S ####[facility] LABCLIA [id number] [address] LABORATORYCLIA [id number] [address] CLINICAL HISTORY bullous rash Normal [facility] Comment on above: Order Comment: Speci men Type: TISSUE SPECIMENOrdering Facility: [facility] Address: [address] [place] [address] Performed By: #### S ####[facility] LABCLIA [id number] [address] LABORATORYCLIA [id number] [place], [place] [address] [place] [address] DIAGNOSIS COMMENT Normal [facility] Comment on above: Order Comment: Speci men Type: TISSUE SPECIMENOrdering Facility: [facility] Address: [address] [place] [address] Result Comment: A. H istologic sections demonstrate a punch biopsy specimen with ulceration and a completely eroded epidermis. Within the superficial dermis, there is a moderate perivascular lymphohistiocytic infiltrate with numerous neutrophils and occasional eosinophils.B. Direct immunofluorescent antibody localization on sections of frozen skin demonstrates positive immunoreactivity for IgG and complement along the basement membrane zone in a linear pattern. There is negative immunoreactivity for IgA and IgM.Taken together, these findings are compatible with a diagnosis of bullous pemphigoid. Clinical correlation is essential.Laboratory Developed Test (LDT) Disclaimer:Performance characteristics of immunohistochemical, immunofluorescent and chromogenic in-situ hybridization tests have been determined by the performing laboratory within [facility]???s [facility] [place] ([facility], [facility], [facility] or [facility]) in a manner consistent with CLIA requirements. One or more of these tests have not been cleared or approved by the FDA. [facility] is regulated under CLIA as qualified to perform high-complexity testing. These tests are used for clinical purposes. They should not be regarded as investigational or for research. Positive and negative controls stain appropriately. Performed By: #### S ####[facility] LABCLIA [id number] [address] LABORATORYCLIA [id number] [place] [address] FINAL DIAGNOSIS Normal [facility] Comment on above: Order Comment: Speci men Type: TISSUE SPECIMENOrdering Facility: [facility] Address: [address] [address] Result Comment: A. S kin, left upper arm, punch excision:-Full-thickness epidermal ulcer, see comment.B. Skin, left upper arm, punch biopsy (DIF):-Positive direct immunofluorescence, see comment.MP/MOI 08/28/2022 Performed By: #### S ####[facility] LABCLIA [id number] [address] LABORATORYCLIA [id number] [address] FINAL PERFORMING LAB Normal [facility] Comment on above: Order Comment: Speci men Type: TISSUE SPECIMENOrdering Facility: [facility] Address: [address] [address] Result Comment: Diag nostic interpretation performed at [facility], [address] [address] CLIA# [id number] Director: Jose Saleem M.D. Performed By: #### S ####[facility] LABCLIA [id number] [address] [address] [facility] LABORATORYCLIA [id number] [address] OF [facility] GROSS DESCRIPTION Normal [facility] Comment on above: Order Comment: Speci men Type: TISSUE SPECIMENOrdering Facility: [facility] Address: [address] [id number] Result Comment: A. S KIN PUNCH EXCISIONReceived in formalin is a cylindrical segment of skin and subcutaneous tissue measuring 0.4 x 0.4 x 0.3 cm. On the skin surface there is a 0.4 cm, valenzuela, slightly elevated area. The specimen is bisected. Also received in the same container is a segment of irregular valenzuela soft, adipose tissue measuring 0.4 x 0.2 x 0.2 cm.Totally submitted in one cassette.B. SKIN DIFReceived in Eliud???s is a cylindrical segment of skin measuring 0.4 cm in greatest dimension. The specimen is washed in Malemide. Totally frozen for Direct Immunofluorescence.Gross examination performed at [facility], [address] [place] [id number] 08/25/2022 6:11 PM Performed By: #### S ####[facility] LABCLIA [id number] [address] OF [facility] LABORATORYCLIA [id number] [address] [place] Basic metabolic 2000 panelon 08-24-2022 Anion gap [Moles/Vol] 6 mmol/L Low 9-18 [facility] Comment on above: Order Comment: Speci men Type: BLOOD SPECIMENOrdering Facility: [facility] Address: [address] [id number] Performed By: #### 2 4321-2 ####[facility] LABORATORYIA [id number] [place] [address] [place] Calcium [Mass/Vol] 8.9 mg/dL Normal 8.5-10.2 [facility] Comment on above: Order Comment: Speci men Type: BLOOD SPECIMENOrdering Facility: [facility] Address: [address] [address] Performed By: #### 2 4321-2 ####[facility] LABORATORYCLIA [id number] [place] [address] [place] Chloride [Moles/Vol] 97 mmol/L Normal 97-105 [facility] Comment on above: Order Comment: Speci men Type: BLOOD SPECIMENOrdering Facility: [facility] Address: [address] [place] [address] Performed By: #### 2 4321-2 ####[facility] LABORATORYCLIA [id number] [place] [address] [place] CO2 [Moles/Vol] 32 mmol/L High 22-30 [facility] Comment on above: Order Comment: Speci men Type: BLOOD SPECIMENOrdering Facility: [facility] Address: [address] [place] [address] Performed By: #### 2 4321-2 ####[facility] LABORATORYCLIA [id number] [address] [place] Creatinine [Mass/Vol] 1.48 mg/dL High 0.58-0.96 [facility] Comment on above: Order Comment: Speci men Type: BLOOD SPECIMENOrdering Facility: [facility] Address: [address] [place] [address] Performed By: #### 2 4321-2 ####[facility] LABORATORYCLIA [id number] [address] OF [place] ESTIMATED GLOMERULAR FILTRATION RATE 39 mL/min/1.73m??? Low >=60 [facility] Comment on above: Order Comment: Speci men Type: BLOOD SPECIMENOrdering Facility: [facility] Address: [address] [place] [address] Result Comment: Petra mated Glomerular Filtration Rate (eGFR) is calculated using the 2020 CKD-EPI creatinine equation. This equation utilizes serum creatinine, sex, and age as parameters. The creatinine assay has traceable calibration to isotope dilution-mass spectrometry. Refer to KDIGO guidelines for clinical interpretation. In patients with unstable renal function, e.g. those with acute kidney injury, the eGFR may not accurately reflect actual GFR. Performed By: #### 2 4321-2 ####[facility] LABORATORYCLIA [id number] [place] [address] [place] Glucose [Mass/Vol] 122 mg/dL High 74-99 [facility] Comment on above: Order Comment: Scott seals Type: BLOOD SPECIMENOrdering Facility: [facility] Address: [address] [place] [address] Result Comment: The [place] Diabetes Association (ADA) provides guidance for cutoff values for fasting glucose and random glucose. The ADA defines fasting as no caloric intake for at least 8 hours. Fasting plasma glucose results between 100 to 125 mg/dL indicate increased risk for diabetes (prediabetes).Fasting plasma glucose results greater than or equal to 126 mg/dL meet the criteria for diagnosis of diabetes. In the absence of unequivocal hyperglycemia, results should be confirmed by repeat testing. In a patient with classic symptoms of hyperglycemia or hyperglycemic crisis, random plasma glucose results greater than or equal to 200 mg/dL meet the criteria for diagnosis of diabetes.Reference: Standards of Medical Care in Diabetes 2016, [place] [employer]. Diabetes Care. 2016.39(Suppl 1). Performed By: #### 2 4321-2 ####[facility] LABORATORYCLIA [id number] [place] [address] [place] Potassium [Moles/Vol] 4.3 mmol/L Normal 3.7-5.1 [facility] Comment on above: Order Comment: Scott seals Type: BLOOD SPECIMENOrdering Facility: [facility] Address: [address] [address] Performed By: #### 2 4321-2 ####[facility] LABORATORYCLIA [id number] [place] [address] [place] Sodium [Moles/Vol] 135 mmol/L Low 136-144 [facility] Comment on above: Order Comment: Scott seals Type: BLOOD SPECIMENOrdering Facility: [facility] Address: [address] [address] Performed By: #### 2 4321-2 ####[facility] LABORATORYCLIA [id number] [address] [place] Urea nitrogen [Mass/Vol] 27 mg/dL High 7-21 [facility] Comment on above: Order Comment: Speci men Type: BLOOD SPECIMENOrdering Facility: [facility] Address: [address] [place] [address] Performed By: #### 2 4321-2 ####[facility] LABORATORYCLIA [id number] [address] STATES OF [facility] CONSULT PROGon 08-24-2022 CONSULT PROG Normal [facility] Chloride Unsp time (U) [Mole s/Vol]on 08-24-2022 Chloride (U) [Moles/Vol] 120 mmol/L Normal 16-250 [facility] Comment on above: Order Comment: Speci men Type: URINE SPECIMENOrdering Facility: [facility] Address: [address] [place] [address] Performed By: #### 3 5676-6, 83969-9, 00004-3, UUNR ####[facility] LABORATORYCLIA [id number] [address] STATES [facility] Creatinine Unsp time (U) [Ma ss/Vol]on 08-24-2022 Creatinine (U) [Mass/Vol] 58.8 mg/dL Normal 42.2-237.9 [facility] Comment on above: Order Comment: Speci men Type: URINE SPECIMENOrdering Facility: [facility] Address: [address] [place] [address] Performed By: #### 3 5676-6, 31888-5, 71044-3, UUNR ####[facility] LABORATORYCLIA [id number] [address] Osmolality Uron 08-24-2022 Osmolality (U) [Osmolality] 429 mosm/kg Normal 50-1200 [facility] Comment on above: Order Comment: Speci men Type: URINE SPECIMENOrdering Facility: [facility] Address: [address] [place] [address] Performed By: #### 2 695-5 ####[facility] LABORATORYCLIA [id number] [place] [address] [place] Sodium ?Tm Ur-sCncon 022 Sodium Unsp time (U) [Moles/Vol] 140 mmol/L Normal 14-216 [facility] Comment on above: Order Comment: Speci men Type: URINE SPECIMENOrdering Facility: [facility] Address: [address] [place] [address] Performed By: #### 3 5676-6, 50949-9, 87062-4, UUNR ####[facility] LABORATORYCLIA [id number] [place] [address] [place] UREA NITROGEN RND URon 08-24 Urea nitrogen [Mass/Vol] 366 mg/dL Normal 140-1500 [facility] Comment on above: Order Comment: Speci men Type: URINE SPECIMENOrdering Facility: [facility] Address: [address] [place] [address] Performed By: #### 3 5676-6, 58445-7, 39572-2, UUNR ####[facility] LABORATORYCLIA [id number] [address] [place] 25(OH)D3 SerPl-mCncon 2021 25-hydroxyvitamin D3 [Mass/Vol] 8.5 ng/mL Low >=30.0 [facility] Comment on above: Order Comment: Speci men Type: BLOOD SPECIMENOrdering Facility: [facility] Address: [address] [place] [address] Result Comment: Clas sification of 25 [place] Vitamin D status:Deficiency: <= 20.0 ng/ml.Insufficiency: 21.0-29.0 ng/ml.Sufficiency: >= 30.0 ng/ml. Performed By: #### 1 989-3 ####[facility] LABORATORYCLIA [id number] [place] [address] [place] Bacteria Ur Culton 2 Bacteria identified Cx Nom (U) Abnormal [facility] Comment on above: Performed By: #### 5 0545-3, VZMIC ####[facility] LABCLIA [id number] [address]#### 630-4 ####[facility] LABORATORYCLIA [id number] [address] Bacterial susceptibility dasilva el ASHU (Isol)on 08-23-2022 CULTURE, ORGANISM ASHU RESULT [id number] Abnormal [facility] Comment on above: Order Comment: Speci men Type: URINE SPECIMENOrdering Facility: [facility] Address: [address] [address] Result Comment: Kleb siella oxytocaIdentification performed by client. Performed By: #### 5 0545-3, VZMIC ####[facility] LABCLIA [id number] [address]#### 630-4 ####[facility] LABORATORYCLIA [id number] [address] CASE MGT INIT ASSESon 2021 CASE MGT INIT ASSES Normal [facility] CBC W Auto Differential pane l (Bld)on 08-23-2022 Basophils (Bld) [#/Vol] 0.04 10*3/uL Normal <0.11 [facility] Comment on above: Order Comment: Speci men Type: BLOOD SPECIMENOrdering Facility: [facility] Address: [address] [address] Result Comment: Diff erential confirmed by visual scan of peripheral blood smear slide Performed By: #### 5 7021-8 ####[facility] LABORATORYCLIA [id number] [address] Basophils/100 WBC (Bld) 0.6 % Normal A [facility] Comment on above: Order Comment: Speci men Type: BLOOD SPECIMENOrdering Facility: [facility] Address: [address] [address] Performed By: #### 5 7021-8 ####[facility] LABORATORYCLIA [id number] [address] Differential cell count method Nom (Bld) Auto Normal [facility] Comment on above: Order Comment: Speci men Type: BLOOD SPECIMENOrdering Facility: [facility] Address: [address] [place] [address] Performed By: #### 5 7021-8 ####[facility] LABORATORYCLIA [id number] [address] Eosinophils (Bld) [#/Vol] 0.39 10*3/uL Normal <0.46 [facility] Comment on above: Order Comment: Speci men Type: BLOOD SPECIMENOrdering Facility: [facility] Address: [address] [place] [address] Performed By: #### 5 7021-8 ####[facility] LABORATORYCLIA [id number] [address] Eosinophils/100 WBC (Bld) 5.4 % Normal [facility] Comment on above: Order Comment: Speci men Type: BLOOD SPECIMENOrdering Facility: [facility] Address: [address] [place] [address] Performed By: #### 5 7021-8 ####[facility] LABORATORYCLIA [id number] [address] Erythrocyte distribution width (RBC) [Ratio] 14.8 % Normal 11.5-15.0 [facility] Comment on above: Order Comment: Speci men Type: BLOOD SPECIMENOrdering Facility: [facility] Address: [address] [place] [address] Performed By: #### 5 7021-8 ####[facility] LABORATORYCLIA [id number] [address] Hematocrit (Bld) [Volume fraction] 29.0 % Low 36.0-46.0 [facility] Comment on above: Order Comment: Speci men Type: BLOOD SPECIMENOrdering Facility: [facility] Address: [address] [place] [address] Performed By: #### 5 7021-8 ####[facility] LABORATORYCLIA [id number] [place] [address] [place] Hemoglobin (Bld) [Mass/Vol] 8.8 g/dL Low 11.5-15.5 [facility] Comment on above: Order Comment: Speci men Type: BLOOD SPECIMENOrdering Facility: [facility] Address: [address] [place] [address] Performed By: #### 5 7021-8 ####[facility] LABORATORYCLIA [id number] [place] [address] [place] Immature granulocytes (Bld) [#/Vol] 0.29 10*3/uL High <0.10 [facility] Comment on above: Order Comment: Speci men Type: BLOOD SPECIMENOrdering Facility: [facility] Address: [address] [place] [address] Performed By: #### 5 7021-8 ####[facility] LABORATORYCLIA [id number] [address] [place] Immature granulocytes/100 WBC (Bld) 4.0 % Normal [facility] Comment on above: Order Comment: Speci men Type: BLOOD SPECIMENOrdering Facility: [facility] Address: [address] [place] [address] Performed By: #### 5 7021-8 ####[facility] LABORATORYCLIA [id number] [place] [address] [place] Lymphocytes (Bld) [#/Vol] 1.32 10*3/uL Normal 1.00-4.00 [facility] Comment on above: Order Comment: Speci men Type: BLOOD SPECIMENOrdering Facility: [facility] Address: [address] [place] [address] Performed By: #### 5 7021-8 ####[facility] LABORATORYCLIA [id number] [place] [address] [place] Lymphocytes/100 WBC (Bld) 18.4 % Normal [facility] Comment on above: Order Comment: Speci men Type: BLOOD SPECIMENOrdering Facility: [facility] Address: [address] [place] [address] Performed By: #### 5 7021-8 ####[facility] LABORATORYCLIA [id number] [address] OF [facility] MCH (RBC) [Entitic mass] 29.2 pg Normal 26.0-34.0 [facility] Comment on above: Order Comment: Speci men Type: BLOOD SPECIMENOrdering Facility: [facility] Address: [address] [place] [address] Performed By: #### 5 7021-8 ####[facility] LABORATORYCLIA [id number] [address] MCHC (RBC) [Mass/Vol] 30.3 g/dL Low 30.5-36.0 [facility] Comment on above: Order Comment: Speci men Type: BLOOD SPECIMENOrdering Facility: [facility] Address: [address] [place] [address] Performed By: #### 5 7021-8 ####[facility] LABORATORYCLIA [id number] [address] MCV (RBC) [Entitic vol] 96.3 fL Normal 80.0-100.0 [facility] Comment on above: Order Comment: Speci men Type: BLOOD SPECIMENOrdering Facility: [facility] Address: [address] [place] [address] Performed By: #### 5 7021-8 ####[facility] LABORATORYCLIA [id number] [address] Monocytes (Bld) [#/Vol] 0.58 10*3/uL Normal <0.87 [facility] Comment on above: Order Comment: Speci men Type: BLOOD SPECIMENOrdering Facility: [facility] Address: [address] [place] [address] Performed By: #### 5 7021-8 ####[facility] LABORATORYCLIA [id number] [address] [place] Monocytes/100 WBC (Bld) 8.1 % Normal A [facility] Comment on above: Order Comment: Speci men Type: BLOOD SPECIMENOrdering Facility: [facility] Address: [address] [place] [address] Performed By: #### 5 7021-8 ####[facility] LABORATORYCLIA [id number] [address] [place] Neutrophils (Bld) [#/Vol] 4.57 10*3/uL Normal 1.45-7.50 [facility] Comment on above: Order Comment: Speci men Type: BLOOD SPECIMENOrdering Facility: [facility] Address: [address] [place] [address] Performed By: #### 5 7021-8 ####[facility] LABORATORYCLIA [id number] [address] Neutrophils/100 WBC (Bld) 63.5 % Normal [facility] Comment on above: Order Comment: Speci men Type: BLOOD SPECIMENOrdering Facility: [facility] Address: [address] [place] [address] Performed By: #### 5 7021-8 ####[facility] LABORATORYCLIA [id number] [address] [place] Nucleated RBC (Bld) [#/Vol] 10*3/uL Normal <0.01 [facility] Comment on above: Order Comment: Speci men Type: BLOOD SPECIMENOrdering Facility: [facility] Address: [address] [place] [address] Performed By: #### 5 7021-8 ####[facility] LABORATORYCLIA [id number] [address] [place] Nucleated RBC/100 WBC (Bld) [Ratio] 0.0 /100 WBC Normal [facility] Comment on above: Order Comment: Speci men Type: BLOOD SPECIMENOrdering Facility: [facility] Address: [address] [place], [place] [address] Performed By: #### 5 7021-8 ####[facility] LABORATORYCLIA [id number] [address] Platelet mean volume (Bld) [Entitic vol] 8.2 fL Low 9.0-12.7 [facility] Comment on above: Order Comment: Speci men Type: BLOOD SPECIMENOrdering Facility: [facility] Address: [address] [place], [place] [address] Performed By: #### 5 7021-8 ####[facility] LABORATORYCLIA [id number] [address] [place] Platelets (Bld) [#/Vol] 282 10*3/uL Normal 150-400 [facility] Comment on above: Order Comment: Speci men Type: BLOOD SPECIMENOrdering Facility: [facility] Address: [address] [place], [place] [address] Performed By: #### 5 7021-8 ####[facility] LABORATORYCLIA [id number] [place] [address] [place] RBC (Bld) [#/Vol] 3.01 10*6/uL Low 3.90-5.20 [facility] Comment on above: Order Comment: Speci men Type: BLOOD SPECIMENOrdering Facility: [facility] Address: [address] [place], [place] [address] Performed By: #### 5 7021-8 ####[facility] LABORATORYCLIA [id number] [address] [place] WBC (Bld) [#/Vol] 7.19 10*3/uL Normal 3.70-11.00 [facility] Comment on above: Order Comment: Speci men Type: BLOOD SPECIMENOrdering Facility: [facility] Address: [address] [place], [place] [address] Performed By: #### 5 7021-8 ####[facility] LABORATORYCLIA [id number] [address] [place] CNPNon 08-23-2022 CNPN Normal [facility] CONSULTon 08-23-2022 CONSULT Normal [facility] CONSULT Normal [facility] CONSULT PROGon 08-23-2022 CONSULT PROG Normal [facility] CONSULT PROG Normal [facility] Comprehensive metabolic 2000 panelon 08-23-2022 Albumin [Mass/Vol] 3.1 g/dL Low 3.9-4.9 [facility] Comment on above: Order Comment: Speci men Type: BLOOD SPECIMENOrdering Facility: [facility] Address: [address] [place] [address] Performed By: #### 2 4323-8, 40636-2, 6-4, 51307-5 ####[facility] LABORATORYCLIA [id number] [place] [address] [place] ALP [Catalytic activity/Vol] 71 U/L Normal 34-123 [facility] Comment on above: Order Comment: Speci men Type: BLOOD SPECIMENOrdering Facility: [facility] Address: [address] [place] [address] Performed By: #### 2 4323-8, 00808-0, 6-4, 28883-3 ####[facility] LABORATORYCLIA [id number] [place] [address] [place] ALT With P-5'-P [Catalytic activity/Vol] 8 U/L Normal 7-38 [facility] Comment on above: Order Comment: Speci men Type: BLOOD SPECIMENOrdering Facility: [facility] Address: [address] [place] [address] Performed By: #### 2 4323-8, 00492-2, 6-4, 45083-5 ####[facility] LABORATORYCLIA [id number] [place] [address] [place] Anion gap [Moles/Vol] 8 mmol/L Low 9-18 [facility] Comment on above: Order Comment: Speci men Type: BLOOD SPECIMENOrdering Facility: [facility] Address: [address] [place] [address] Performed By: #### 2 4323-8, 24361-0, 6-4, 61589-4 ####[facility] LABORATORYCLIA [id number] [place] [address] [place] AST With P-5'-P [Catalytic activity/Vol] 9 U/L Low 13-35 [facility] Comment on above: Order Comment: Speci men Type: BLOOD SPECIMENOrdering Facility: [facility] Address: [address] [place] [address] Performed By: #### 2 4323-8, 97891-7, 6-4, 56874-1 ####[facility] LABORATORYCLIA [id number] [place] [address] [place] Bilirubin [Mass/Vol] 0.2 mg/dL Normal 0.2-1.3 [facility] Comment on above: Order Comment: Speci men Type: BLOOD SPECIMENOrdering Facility: [facility] Address: [address] [place] [address] Performed By: #### 2 4323-8, 61381-5, 6-4, 27970-8 ####[facility] LABORATORYCLIA [id number] [place] [address] [place] Calcium [Mass/Vol] 8.9 mg/dL Normal 8.5-10.2 [facility] Comment on above: Order Comment: Speci men Type: BLOOD SPECIMENOrdering Facility: [facility] Address: [address] [place] [address] Performed By: #### 2 4323-8, 61807-9, 6-4, 65554-3 ####[facility] LABORATORYCLIA [id number] [place] [address] [place] Chloride [Moles/Vol] 100 mmol/L Normal 97-105 [facility] Comment on above: Order Comment: Speci men Type: BLOOD SPECIMENOrdering Facility: [facility] Address: [address] [place] [address] Performed By: #### 2 4323-8, 72820-7, 6-4, 52548-6 ####[facility] LABORATORYCLIA [id number] [address] STATES OF [facility] CO2 [Moles/Vol] 32 mmol/L High 22-30 [facility] Comment on above: Order Comment: Speci men Type: BLOOD SPECIMENOrdering Facility: [facility] Address: [address] [place] [address] Performed By: #### 2 4323-8, 95053-8, 2275-4, 30977-9 ####[facility]ITALCLIA [id number] [address] Creatinine [Mass/Vol] 1.36 mg/dL High 0.58-0.96 [facility] Comment on above: Order Comment: Speci men Type: BLOOD SPECIMENOrdering Facility: [facility] Address: [address] [place] [address] Performed By: #### 2 4323-8, 78411-0, 4, 47752-1 ####[facility] HOSPITALIA [id number] [address] ESTIMATED GLOMERULAR FILTRATION RATE 43 mL/min/1.73m??? Low >=60 [facility] Comment on above: Order Comment: Speci men Type: BLOOD SPECIMENOrdering Facility: [facility] Address: [address] [place] [address] Result Comment: Petra mated Glomerular Filtration Rate (eGFR) is calculated using the 2020 CKD-EPI creatinine equation. This equation utilizes serum creatinine, sex, and age as parameters. The creatinine assay has traceable calibration to isotope dilution-mass spectrometry. Refer to KDIGO guidelines for clinical interpretation. In patients with unstable renal function, e.g. those with acute kidney injury, the eGFR may not accurately reflect actual GFR. Performed By: #### 2 4323-8, 20185-7, 6-4, 73551-0 ####[facility] LABORATORYCLIA [id number] [place] [id number] [place] Glucose [Mass/Vol] 158 mg/dL High 74-99 [facility] Comment on above: Order Comment: Scott seals Type: BLOOD SPECIMENOrdering Facility: [facility] Address: [address] [place], [place] [address] Result Comment: The [place] [employer] (ADA) provides guidance for cutoff values for fasting glucose and random glucose. The ADA defines fasting as no caloric intake for at least 8 hours. Fasting plasma glucose results between 100 to 125 mg/dL indicate increased risk for diabetes (prediabetes).Fasting plasma glucose results greater than or equal to 126 mg/dL meet the criteria for diagnosis of diabetes. In the absence of unequivocal hyperglycemia, results should be confirmed by repeat testing. In a patient with classic symptoms of hyperglycemia or hyperglycemic crisis, random plasma glucose results greater than or equal to 200 mg/dL meet the criteria for diagnosis of diabetes.Reference: Standards of Medical Care in Diabetes 2016, [place] [employer]. Diabetes Care. 2016.39(Suppl 1). Performed By: #### 2 4323-8, 18377-4, 2275-, 38858-8 ####[facility] LABORATORYCLIA [id number] [place] [address] [place] Potassium [Moles/Vol] 4.2 mmol/L Normal 3.7-5.1 [facility] Comment on above: Order Comment: Scott seals Type: BLOOD SPECIMENOrdering Facility: [facility] Address: [address] [place], [place] [address] Performed By: #### 2 4323-8, 81614-1, 2276-01, 65187-6 ####[facility] LABORATORYCLIA [id number] [place] [address] [place] Protein [Mass/Vol] 5.5 g/dL Low 6.3-8.0 [facility] Comment on above: Order Comment: Scott seals Type: BLOOD SPECIMENOrdering Facility: [facility] Address: [address] [place], [place] [address] Performed By: #### 2 4323-8, 93529-6, 2275-, 98637-4 ####[facility] LABORATORYCLIA [id number] [place] [address] [place] Sodium [Moles/Vol] 140 mmol/L Normal 136-144 [facility] Comment on above: Order Comment: Speci men Type: BLOOD SPECIMENOrdering Facility: [facility] Address: [address] [place] [address] Performed By: #### 2 4323-8, 09071-3, 6-4, 94260-3 ####[facility] LABORATORYCLIA [id number] [place] [address] [place] Urea nitrogen [Mass/Vol] 23 mg/dL High 7-21 [facility] Comment on above: Order Comment: Speci men Type: BLOOD SPECIMENOrdering Facility: [facility] Address: [address] [place] [address] Performed By: #### 2 4323-8, 34707-0, 6-4, 43140-1 ####[facility] LABORATORYCLIA [id number] [address] [place] Ferritin SerPl-mCncon 2021 Ferritin [Mass/Vol] 55.3 ng/mL Normal 14.7-205.1 [facility] Comment on above: Order Comment: Speci men Type: BLOOD SPECIMENOrdering Facility: [facility] Address: [address] [place] [address] Performed By: #### 2 4323-8, 50397-1, 6-4, 63628-7 ####[facility] LABORATORYCLIA [id number] [place] [address] [place] Iron and Iron binding capaci ty panelon 08-23-2022 Iron [Mass/Vol] 44 ug/dL Normal 41-186 [facility] Comment on above: Order Comment: Speci men Type: BLOOD SPECIMENOrdering Facility: [facility] Address: [address] [place] [address] Performed By: #### 2 4323-8, 73021-2, 6-4, 56466-2 ####[facility] LABORATORYCLIA [id number] [address] [place] Iron binding capacity [Mass/Vol] 233 ug/dL Normal 232-386 [facility] Comment on above: Order Comment: Speci men Type: BLOOD SPECIMENOrdering Facility: [facility] Address: [address] [address] Performed By: #### 2 4323-8, 32428-2, 6-4, 36059-2 ####[facility] LABORATORYCLIA [id number] [address] STATES [facility] Iron saturation [Mass fraction] 18.9 % Normal 15.0-57.0 [facility] Comment on above: Order Comment: Speci men Type: BLOOD SPECIMENOrdering Facility: [facility] Address: [address] [place] [address] Performed By: #### 2 4323-8, 06336-9, 2275-4, 08309-5 ####[facility] LABORATORYCLIA [id number] [place] [address] [place] MINIMUM INHIBITORY CONCENTRA TION (VIZION)on 08-23-2022 Minocycline [Susc] 8 Intermediate [facility] Comment on above: Order Comment: Order ing Facility: [facility] Address: [address] [address] Performed By: #### 5 0545-3, VZMIC ####[facility] LABCLIA [id number] [place] [address] [place]#### 630-4 ####[facility] LABORATORYCLIA [id number] [place] [address] [place] Magnesium SerPl-mCncon 08-23 Magnesium [Mass/Vol] 2.3 mg/dL Normal 1.7-2.3 [facility] Comment on above: Order Comment: Speci men Type: BLOOD SPECIMENOrdering Facility: [facility] Address: [address] [address] Performed By: #### 2 4323-8, 42238-8, 2276-4, 29449-1 ####[facility] LABORATORYCLIA [id number] [address] OF [facility] NURSING PROGon 08-23-2022 NURSING PROG Normal [facility] NURSING PROG Normal [facility] NURSING PROG Normal [facility] PTH-Intact SerPl-mCncon 10- Parathyrin.intact [Mass/Vol] 46 pg/mL Normal 15-65 [facility] Comment on above: Order Comment: Speci men Type: BLOOD SPECIMENOrdering Facility: [facility] Address: [address] [place] [address] Result Comment: Test methodology for this assay has moved from ChatterPlugaur XP to Rocketskatesas 8000 effective August 01, 2022. Please note there may be a change in the reporting units and/or reference range. Performed By: #### 2 731-8 ####[facility] LABORATORYCLIA [id number] [address] [place] THERAPY NTon 08-23-2022 THERAPY NT Normal [facility] THERAPY NT Normal [facility] US KIDNEY/BLADDERon 08-23-20 22 US KIDNEY/BLADDER Normal [facility] CBC W Auto Differential pane l (Bld)on 08-22-2022 Basophils (Bld) [#/Vol] 0.13 10*3/uL High <0.11 [facility] Comment on above: Order Comment: Speci men Type: BLOOD SPECIMENOrdering Facility: [facility] Address: [address] [address] Performed By: #### 5 7021-8 ####[facility] LABORATORYCLIA [id number] [address] Basophils/100 WBC (Bld) 2.0 % Normal A [facility] Comment on above: Order Comment: Speci men Type: BLOOD SPECIMENOrdering Facility: [facility] Address: [address] [address] Performed By: #### 5 7021-8 ####[facility] LABORATORYCLIA [id number] [place] [address] [place] Dacrocytes LM Ql (Bld) Few Normal [facility] Comment on above: Order Comment: Speci men Type: BLOOD SPECIMENOrdering Facility: [facility] Address: [address] [place] [address] Performed By: #### 5 7021-8 ####[facility] LABORATORYCLIA [id number] [address] Differential cell count method Nom (Bld) Manual Normal [facility] Comment on above: Order Comment: Speci men Type: BLOOD SPECIMENOrdering Facility: [facility] Address: [address] [place] [address] Performed By: #### 5 7021-8 ####[facility] LABORATORYCLIA [id number] [place] [address] [place] Eosinophils (Bld) [#/Vol] 0.52 10*3/uL High <0.46 [facility] Comment on above: Order Comment: Speci men Type: BLOOD SPECIMENOrdering Facility: [facility] Address: [address] [place] [address] Performed By: #### 5 7021-8 ####[facility] LABORATORYCLIA [id number] [address] Eosinophils/100 WBC (Bld) 8.0 % Normal [facility] Comment on above: Order Comment: Speci men Type: BLOOD SPECIMENOrdering Facility: [facility] Address: [address] [place] [address] Performed By: #### 5 7021-8 ####[facility] LABORATORYCLIA [id number] [address] [place] Erythrocyte distribution width (RBC) [Ratio] 14.6 % Normal 11.5-15.0 [facility] Comment on above: Order Comment: Speci men Type: BLOOD SPECIMENOrdering Facility: [facility] Address: [address] [place] [address] Performed By: #### 5 7021-8 ####[facility] LABORATORYCLIA [id number] [address] STATES OF [facility] Hematocrit (Bld) [Volume fraction] 29.7 % Low 36.0-46.0 [facility] Comment on above: Order Comment: Speci men Type: BLOOD SPECIMENOrdering Facility: [facility] Address: [address] [place] [address] Performed By: #### 5 7021-8 ####[facility] LABORATORYCLIA [id number] [address] OF [place] Hemoglobin (Bld) [Mass/Vol] 9.1 g/dL Low 11.5-15.5 [facility] Comment on above: Order Comment: Speci men Type: BLOOD SPECIMENOrdering Facility: [facility] Address: [address] [place] [address] Performed By: #### 5 7021-8 ####[facility] LABORATORYCLIA [id number] [address] Lymphocytes (Bld) [#/Vol] 0.97 10*3/uL Low 1.00-4.00 [facility] Comment on above: Order Comment: Speci men Type: BLOOD SPECIMENOrdering Facility: [facility] Address: [address] [place] [address] Performed By: #### 5 7021-8 ####[facility] LABORATORYCLIA [id number] [address] Lymphocytes/100 WBC (Bld) 15.0 % Normal [facility] Comment on above: Order Comment: Speci men Type: BLOOD SPECIMENOrdering Facility: [facility] Address: [address] [place] [address] Performed By: #### 5 7021-8 ####[facility] LABORATORYCLIA [id number] [address] OF [place] MCH (RBC) [Entitic mass] 29.1 pg Normal 26.0-34.0 [facility] Comment on above: Order Comment: Speci men Type: BLOOD SPECIMENOrdering Facility: [facility] Address: [address] [place] [address] Performed By: #### 5 7021-8 ####[facility] LABORATORYCLIA [id number] [address] MCHC (RBC) [Mass/Vol] 30.6 g/dL Normal 30.5-36.0 [facility] Comment on above: Order Comment: Speci men Type: BLOOD SPECIMENOrdering Facility: [facility] Address: [address] [place] [address] Performed By: #### 5 7021-8 ####[facility] LABORATORYCLIA [id number] [address] MCV (RBC) [Entitic vol] 94.9 fL Normal 80.0-100.0 [facility] Comment on above: Order Comment: Speci men Type: BLOOD SPECIMENOrdering Facility: [facility] Address: [address] [place] [address] Performed By: #### 5 7021-8 ####[facility] LABORATORYCLIA [id number] [address] Monocytes (Bld) [#/Vol] 0.32 10*3/uL Normal <0.87 [facility] Comment on above: Order Comment: Speci men Type: BLOOD SPECIMENOrdering Facility: [facility] Address: [address] [place] [address] Performed By: #### 5 7021-8 ####[facility] LABORATORYCLIA [id number] [address] Monocytes/100 WBC (Bld) 5.0 % Normal [facility] Comment on above: Order Comment: Speci men Type: BLOOD SPECIMENOrdering Facility: [facility] Address: [address] [place] [address] Performed By: #### 5 7021-8 ####[facility] LABORATORYCLIA [id number] [address] [place] MYELO% 1.0 % Normal [facility] Comment on above: Order Comment: Speci men Type: BLOOD SPECIMENOrdering Facility: [facility] Address: [address] [place] [address] Performed By: #### 5 7021-8 ####[facility] LABORATORYCLIA [id number] [address] [place] Neutrophils (Bld) [#/Vol] 4.48 10*3/uL Normal 1.45-7.50 [facility] Comment on above: Order Comment: Speci men Type: BLOOD SPECIMENOrdering Facility: [facility] Address: [address] [place] [address] Performed By: #### 5 7021-8 ####[facility] LABORATORYCLIA [id number] [address] [place] Neutrophils/100 WBC (Bld) 69.0 % Normal [facility] Comment on above: Order Comment: Speci men Type: BLOOD SPECIMENOrdering Facility: [facility] Address: [address] [place] [address] Performed By: #### 5 7021-8 ####[facility] LABORATORYCLIA [id number] [address] [place] Nucleated RBC (Bld) [#/Vol] 10*3/uL Normal <0.01 [facility] Comment on above: Order Comment: Speci men Type: BLOOD SPECIMENOrdering Facility: [facility] Address: [address] [place] [address] Performed By: #### 5 7021-8 ####[facility] LABORATORYCLIA [id number] [address] Nucleated RBC/100 WBC (Bld) [Ratio] 0.0 /100 WBC Normal [facility] Comment on above: Order Comment: Speci men Type: BLOOD SPECIMENOrdering Facility: [facility] Address: [address] [place] [address] Performed By: #### 5 7021-8 ####[facility] LABORATORYCLIA [id number] [place] [address] [place] Platelet mean volume (Bld) [Entitic vol] 8.1 fL Low 9.0-12.7 [facility] Comment on above: Order Comment: Speci men Type: BLOOD SPECIMENOrdering Facility: [facility] Address: [address] [place] [place] [address] Performed By: #### 5 7021-8 ####[facility] LABORATORYCLIA [id number] [place] [address] [place] Platelets (Bld) [#/Vol] 251 10*3/uL Normal 150-400 [facility] Comment on above: Order Comment: Speci men Type: BLOOD SPECIMENOrdering Facility: [facility] Address: [address] [place] [address] Performed By: #### 5 7021-8 ####[facility] LABORATORYCLIA [id number] [address] STATES [facility] Platelets Estimate (Bld) [#/Vol] Adequate Normal [facility] Comment on above: Order Comment: Speci men Type: BLOOD SPECIMENOrdering Facility: [facility] Address: [facility] [place] [address] Performed By: #### 5 7021-8 ####[facility] LABORATORYCLIA [id number] [place] [address] [place] RBC (Bld) [#/Vol] 3.13 10*6/uL Low 3.90-5.20 [facility] Comment on above: Order Comment: Speci men Type: BLOOD SPECIMENOrdering Facility: [facility] Address: [address] Performed By: #### 5 7021-8 ####[facility] LABORATORYCLIA [id number] [address] RED CELL MORPH Reviewed Normal [facility] Comment on above: Order Comment: Speci men Type: BLOOD SPECIMENOrdering Facility: [facility] Address: [address] [place] [address] Performed By: #### 5 7021-8 ####[facility] LABORATORYCLIA [id number] [address] [place] WBC (Bld) [#/Vol] 6.49 10*3/uL Normal 3.70-11.00 [facility] Comment on above: Order Comment: Speci men Type: BLOOD SPECIMENOrdering Facility: [facility] Address: [address] [place] [address] Performed By: #### 5 7021-8 ####[facility] LABORATORYCLIA [id number] [address] STATES [facility] Basophils (Bld) [#/Vol] 10*3/uL Normal <0.11 [facility] Comment on above: Order Comment: Speci men Type: BLOOD SPECIMENOrdering Facility: [facility] Address: [address] [place] [address] Performed By: #### 5 7021-8 ####[facility]EN LABCLIA [id number] [address] [place] Basophils/100 WBC (Bld) 0.1 % Normal [facility] Comment on above: Order Comment: Speci men Type: BLOOD SPECIMENOrdering Facility: [facility] Address: [address] [place] [address] Performed By: #### 5 7021-8 ####[facility] LABCLIA [id number] [place] [address] [place] Differential cell count method Nom (Bld) Auto Normal [facility] Comment on above: Order Comment: Speci men Type: BLOOD SPECIMENOrdering Facility: [facility] Address: [address] [place] [address] Performed By: #### 5 7021-8 ####[facility] LABCLIA [id number] [place] [address] [place] Eosinophils (Bld) [#/Vol] 0.49 10*3/uL High <0.46 [facility] Comment on above: Order Comment: Speci men Type: BLOOD SPECIMENOrdering Facility: [facility] Address: [address] [place] [address] Performed By: #### 5 7021-8 ####[facility] LABCLIA [id number] [place] [address] [place] Eosinophils/100 WBC (Bld) 6.2 % Normal [facility] Comment on above: Order Comment: Speci men Type: BLOOD SPECIMENOrdering Facility: [facility] Address: [address] [place] [address] Performed By: #### 5 7021-8 ####[facility] LABCLIA [id number] [address] [place] Erythrocyte distribution width (RBC) [Ratio] 14.5 % Normal 11.5-15.0 [facility] Comment on above: Order Comment: Speci men Type: BLOOD SPECIMENOrdering Facility: [facility] Address: [address] [place] [address] Performed By: #### 5 7021-8 ####[facility] LABCLIA [id number] [place] [address] [place] Hematocrit (Bld) [Volume fraction] 32.3 % Low 36.0-46.0 [facility] Comment on above: Order Comment: Speci men Type: BLOOD SPECIMENOrdering Facility: [facility] Address: [address] [place] [address] Performed By: #### 5 7021-8 ####[facility] LABCLIA [id number] [place] [address] [place] Hemoglobin (Bld) [Mass/Vol] 9.8 g/dL Low 11.5-15.5 [facility] Comment on above: Order Comment: Speci men Type: BLOOD SPECIMENOrdering Facility: [facility] Address: [address] [place], [place] [address] Performed By: #### 5 7021-8 ####[facility] LABCLIA [id number] [place] [address] [place] Immature granulocytes (Bld) [#/Vol] 0.17 10*3/uL High <0.10 [facility] Comment on above: Order Comment: Speci men Type: BLOOD SPECIMENOrdering Facility: [facility] Address: [address] [place] [address] Performed By: #### 5 7021-8 ####[facility] LABCLIA [id number] [address] Immature granulocytes/100 WBC (Bld) 2.1 % Normal [facility] Comment on above: Order Comment: Speci men Type: BLOOD SPECIMENOrdering Facility: [facility] Address: [address] [place] [address] Performed By: #### 5 7021-8 ####[facility] LABCLIA [id number] [place] [address] [place] Lymphocytes (Bld) [#/Vol] 1.17 10*3/uL Normal 1.00-4.00 [facility] Comment on above: Order Comment: Speci men Type: BLOOD SPECIMENOrdering Facility: [facility] Address: [address] [place] [address] Performed By: #### 5 7021-8 ####[facility] LABCLIA [id number] [address] Lymphocytes/100 WBC (Bld) 14.8 % Normal [facility] Comment on above: Order Comment: Speci men Type: BLOOD SPECIMENOrdering Facility: [facility] Address: [address] [place] [address] Performed By: #### 5 7021-8 ####[facility] LABCLIA [id number] [address] [id number] MCH (RBC) [Entitic mass] 29.6 pg Normal 26.0-34.0 [facility] Comment on above: Order Comment: Speci men Type: BLOOD SPECIMENOrdering Facility: [facility] Address: [address] [place] [address] Performed By: #### 5 7021-8 ####[facility] LABCLIA [id number] [place] [address] [place] MCHC (RBC) [Mass/Vol] 30.3 g/dL Low 30.5-36.0 [facility] Comment on above: Order Comment: Speci men Type: BLOOD SPECIMENOrdering Facility: [facility] Address: [address] [place] [address] Performed By: #### 5 7021-8 ####[facility] LABCLIA [id number] [address] [place] MCV (RBC) [Entitic vol] 97.6 fL Normal 80.0-100.0 A [facility] Comment on above: Order Comment: Speci men Type: BLOOD SPECIMENOrdering Facility: [facility] Address: [address] [place] [address] Performed By: #### 5 7021-8 ####[facility] LABCLIA [id number] [place] [address] [facility] OF [place] Monocytes (Bld) [#/Vol] 0.59 10*3/uL Normal <0.87 [facility] Comment on above: Order Comment: Speci men Type: BLOOD SPECIMENOrdering Facility: [facility] Address: [address] [place] [address] Performed By: #### 5 7021-8 ####[facility] [employer] LABCLIA [id number] [place] [address] [facility] Monocytes/100 WBC (Bld) 7.4 % Normal A [facility] Comment on above: Order Comment: Speci men Type: BLOOD SPECIMENOrdering Facility: [facility] Address: [address] [place] [address] Performed By: #### 5 7021-8 ####[facility] LABCLIA [id number] [place] [address] [place] Neutrophils (Bld) [#/Vol] 5.50 10*3/uL Normal 1.45-7.50 [facility] Comment on above: Order Comment: Speci men Type: BLOOD SPECIMENOrdering Facility: [facility] Address: [address] [place] [address] Performed By: #### 5 7021-8 ####[facility] LABCLIA [id number] [place] [address] [place] Neutrophils/100 WBC (Bld) 69.4 % Normal [facility] Comment on above: Order Comment: Speci men Type: BLOOD SPECIMENOrdering Facility: [facility] Address: [address] [place] [address] Performed By: #### 5 7021-8 ####[facility] LABCLIA [id number] [place] [address] [place] Platelet mean volume (Bld) [Entitic vol] 8.3 fL Low 9.0-12.7 [facility] Comment on above: Order Comment: Speci men Type: BLOOD SPECIMENOrdering Facility: [facility] Address: [address] [place], [place] [address] Performed By: #### 5 7021-8 ####[facility] LABCLIA [id number] [place] [address] [place] Platelets (Bld) [#/Vol] 272 10*3/uL Normal 150-400 [facility] Comment on above: Order Comment: Speci men Type: BLOOD SPECIMENOrdering Facility: [facility] Address: [address] [place], [place] [address] Performed By: #### 5 7021-8 ####[facility] LABCLIA [id number] [place] [address] [place] RBC (Bld) [#/Vol] 3.31 10*6/uL Low 3.90-5.20 [facility] Comment on above: Order Comment: Speci men Type: BLOOD SPECIMENOrdering Facility: [facility] Address: [address] [place] [address] Performed By: #### 5 7021-8 ####[facility] LABCLIA [id number] [place] [address] [place] WBC (Bld) [#/Vol] 7.93 10*3/uL Normal 3.70-11.00 [facility] Comment on above: Order Comment: Speci men Type: BLOOD SPECIMENOrdering Facility: [facility] Address: [address] [place] [address] Performed By: #### 5 7021-8 ####[facility] LABCLIA [id number] [place] [address] [place] [facility] CONSULTon 08-22-2022 CONSULT Normal [facility] Comprehensive metabolic 2000 panelon 08-22-2022 Albumin [Mass/Vol] 3.1 g/dL Low 3.9-4.9 [facility] Comment on above: Order Comment: Speci men Type: BLOOD SPECIMENOrdering Facility: [facility] Address: [address] [place] [address] Performed By: #### 2 4323-8, 3024-7, 3016-3, 39413-6 ####[facility] LABORATORYCLIA [id number] [place], [place] [address] [place] [address] [place] [facility] ALP [Catalytic activity/Vol] 77 U/L Normal 34-123 [facility] Comment on above: Order Comment: Speci men Type: BLOOD SPECIMENOrdering Facility: [facility] Address: [address] [place] [address] Performed By: #### 2 4323-8, 3024-7, 3016-3, 83215-8 ####[facility] LABORATORYCLIA [id number] [place] [address] [place] ALT With P-5'-P [Catalytic activity/Vol] 8 U/L Normal 7-38 [facility] Comment on above: Order Comment: Speci men Type: BLOOD SPECIMENOrdering Facility: [facility] Address: [address] [place] [address] Performed By: #### 2 4323-8, 3024-7, 3016-3, 95872-0 ####[facility] LABORATORYCLIA [id number] [place] [address] [place] Anion gap [Moles/Vol] 10 mmol/L Normal 9-18 [facility] Comment on above: Order Comment: Speci men Type: BLOOD SPECIMENOrdering Facility: [facility] Address: [address] [place] [address] Performed By: #### 2 4323-8, 3024-7, 6-3, 30988-8 ####[facility] LABORATORYCLIA [id number] [address] STATES OF [facility] AST With P-5'-P [Catalytic activity/Vol] 9 U/L Low 13-35 [facility] Comment on above: Order Comment: Speci men Type: BLOOD SPECIMENOrdering Facility: [facility] Address: [address] [place] [address] Performed By: #### 2 4323-8, 3024-7, 3016-3, 33166-3 ####[facility] LABORATORYCLIA [id number] [address] [place] Bilirubin [Mass/Vol] 0.3 mg/dL Normal 0.2-1.3 [facility] Comment on above: Order Comment: Speci men Type: BLOOD SPECIMENOrdering Facility: [facility] Address: [address] [place] [address] Performed By: #### 2 4323-8, 3024-7, 3016-3, 48669-6 ####[facility] LABORATORYCLIA [id number] [place] [address] [place] Calcium [Mass/Vol] 8.6 mg/dL Normal 8.5-10.2 [facility] Comment on above: Order Comment: Speci men Type: BLOOD SPECIMENOrdering Facility: [facility] Address: [address] [place] [address] Performed By: #### 2 4323-8, 3024-7, 3016-3, 04875-5 ####[facility] LABORATORYCLIA [id number] [place] [address] [place] Chloride [Moles/Vol] 100 mmol/L Normal 97-105 [facility] Comment on above: Order Comment: Speci men Type: BLOOD SPECIMENOrdering Facility: [facility] Address: [address] [place] [address] Performed By: #### 2 4323-8, 3024-7, 3016-3, 44880-6 ####[facility] LABORATORYCLIA [id number] [address] [place] CO2 [Moles/Vol] 29 mmol/L Normal 22-30 [facility] Comment on above: Order Comment: Speci men Type: BLOOD SPECIMENOrdering Facility: [facility] Address: [address] [place] [address] Performed By: #### 2 4323-8, 3024-7, 3016-3, 24020-7 ####[facility] LABORATORYCLIA [id number] [place] [address] [place] Creatinine [Mass/Vol] 1.19 mg/dL High 0.58-0.96 [facility] Comment on above: Order Comment: Speci men Type: BLOOD SPECIMENOrdering Facility: [facility] Address: [address] [place] [address] Performed By: #### 2 4323-8, 3024-7, 3016-3, 35510-4 ####[facility] LABORATORYCLIA [id number] [place] [address] [place] ESTIMATED GLOMERULAR FILTRATION RATE 51 mL/min/1.73m??? Low >=60 [facility] Comment on above: Order Comment: Scott seals Type: BLOOD SPECIMENOrdering Facility: [facility] Address: [address] [place], [place] [address] Result Comment: Petra mated Glomerular Filtration Rate (eGFR) is calculated using the 2020 CKD-EPI creatinine equation. This equation utilizes serum creatinine, sex, and age as parameters. The creatinine assay has traceable calibration to isotope dilution-mass spectrometry. Refer to KDIGO guidelines for clinical interpretation. In patients with unstable renal function, e.g. those with acute kidney injury, the eGFR may not accurately reflect actual GFR. Performed By: #### 2 4323-8, 3024-7, 3016-3, 33984-4 ####[facility] LABORATORYCLIA [id number] [place] [address] [place] Glucose [Mass/Vol] 258 mg/dL High 74-99 [facility] Comment on above: Order Comment: Scott seals Type: BLOOD SPECIMENOrdering Facility: [facility] Address: [address] [place], [place] [address] Result Comment: The [place] [employer] (ADA) provides guidance for cutoff values for fasting glucose and random glucose. The ADA defines fasting as no caloric intake for at least 8 hours. Fasting plasma glucose results between 100 to 125 mg/dL indicate increased risk for diabetes (prediabetes).Fasting plasma glucose results greater than or equal to 126 mg/dL meet the criteria for diagnosis of diabetes. In the absence of unequivocal hyperglycemia, results should be confirmed by repeat testing. In a patient with classic symptoms of hyperglycemia or hyperglycemic crisis, random plasma glucose results greater than or equal to 200 mg/dL meet the criteria for diagnosis of diabetes.Reference: Standards of Medical Care in Diabetes 2016, [place] [employer]. Diabetes Care. 2016.39(Suppl 1). Performed By: #### 2 4323-8, 3024-7, 3016-3, 00936-1 ####[facility] LABORATORYCLIA [id number] [place] [address] [place] Potassium [Moles/Vol] 4.1 mmol/L Normal 3.7-5.1 [facility] Comment on above: Order Comment: Speci men Type: BLOOD SPECIMENOrdering Facility: [facility] Address: [address] [place] [address] Performed By: #### 2 4323-8, 3024-7, 3016-3, 33133-3 ####[facility] LABORATORYCLIA [id number] [place] [address] [place] Protein [Mass/Vol] 5.8 g/dL Low 6.3-8.0 [facility] Comment on above: Order Comment: Speci men Type: BLOOD SPECIMENOrdering Facility: [facility] Address: [address] [place] [address] Performed By: #### 2 4323-8, 3024-7, 3016-3, 07680-1 ####[facility] LABORATORYCLIA [id number] [place] [address] [place] Sodium [Moles/Vol] 139 mmol/L Normal 136-144 [facility] Comment on above: Order Comment: Speci men Type: BLOOD SPECIMENOrdering Facility: [facility] Address: [address] [place] [address] Performed By: #### 2 4323-8, 3024-7, 3016-3, 68364-6 ####[facility] LABORATORYCLIA [id number] [place] [address] [place] Urea nitrogen [Mass/Vol] 20 mg/dL Normal 7-21 [facility] Comment on above: Order Comment: Speci men Type: BLOOD SPECIMENOrdering Facility: [facility] Address: [address] [place] [address] Performed By: #### 2 4323-8, 3024-7, 3016-3, 62173-4 ####[facility] LABORATORYCLIA [id number] [place] [address] [place] Albumin [Mass/Vol] 2.6 g/dL Low 3.4-5.0 [facility] Comment on above: Order Comment: Speci men Type: BLOOD SPECIMENOrdering Facility: [facility] Address: [address] [place] [address] Performed By: #### 2 4323-8 ####[facility] LABCLIA [id number] [address] ALP [Catalytic activity/Vol] 79 U/L Normal 46-116 [facility] Comment on above: Order Comment: Speci men Type: BLOOD SPECIMENOrdering Facility: [facility] Address: [address] [place] [address] Performed By: #### 2 4323-8 ####[facility] LABCLIA [id number] [address] OF [facility] ALT With P-5'-P [Catalytic activity/Vol] 15 U/L Normal 12-78 [facility] Comment on above: Order Comment: Speci men Type: BLOOD SPECIMENOrdering Facility: [facility] Address: [address] [place] [address] Performed By: #### 2 4323-8 ####[facility] [employer] LABCLIA [id number] [address] OF [place] Anion gap [Moles/Vol] 10 mmol/L Normal 8-16 [facility] Comment on above: Order Comment: Speci men Type: BLOOD SPECIMENOrdering Facility: [facility] Address: [address] [place] [address] Performed By: #### 2 4323-8 ####[facility] LABCLIA [id number] [address] OF [place] AST With P-5'-P [Catalytic activity/Vol] 18 U/L Normal 15-46 [facility] Comment on above: Order Comment: Speci men Type: BLOOD SPECIMENOrdering Facility: [facility] Address: [address] [place] [address] Performed By: #### 2 4323-8 ####[facility] LABCLIA [id number] [place] [address] [place] Bilirubin [Mass/Vol] 0.3 mg/dL Normal 0.2-1.0 [facility] Comment on above: Order Comment: Speci men Type: BLOOD SPECIMENOrdering Facility: [facility] Address: [address] [place] [address] Performed By: #### 2 4323-8 ####[facility] LABCLIA [id number] [place] [address] [place] Calcium [Mass/Vol] 8.5 mg/dL Normal 8.5-10.1 [facility] Comment on above: Order Comment: Speci men Type: BLOOD SPECIMENOrdering Facility: [facility] Address: [address] [place] [address] Performed By: #### 2 4323-8 ####[facility] LABCLIA [id number] [place] [address] [place] Chloride [Moles/Vol] 98 mmol/L Normal 98-107 [facility] Comment on above: Order Comment: Speci men Type: BLOOD SPECIMENOrdering Facility: [facility] Address: [address] [place] [address] Performed By: #### 2 4323-8 ####[facility] LABCLIA [id number] [place] [address] [place] CO2 [Moles/Vol] 30 mmol/L Normal 21-32 [facility] Comment on above: Order Comment: Speci men Type: BLOOD SPECIMENOrdering Facility: [facility] Address: [address] [place] [address] Performed By: #### 2 4323-8 ####[facility] GREEN LABCLIA [id number] [place] [address] [place] Creatinine [Mass/Vol] 1.35 mg/dL High 0.51-0.95 [facility] Comment on above: Order Comment: Speci men Type: BLOOD SPECIMENOrdering Facility: [facility] Address: [address] [place] [address] Performed By: #### 2 4323-8 ####ERNST MINAIA [id number] [place] [address] [place] ESTIMATED GLOMERULAR FILTRATION RATE 44 mL/min/1.73m??? Low >=60 [facility] Comment on above: Order Comment: Scott seals Type: BLOOD SPECIMENOrdering Facility: [facility] Address: [address] [place] [address] Result Comment: Ptera mated Glomerular Filtration Rate (eGFR) is calculated using the 2020 CKD-EPI creatinine equation. This equation utilizes serum creatinine, sex, and age as parameters. The creatinine assay has traceable calibration to isotope dilution-mass spectrometry. Refer to KDIGO guidelines for clinical interpretation. In patients with unstable renal function, e.g. those with acute kidney injury, the eGFR may not accurately reflect actual GFR. Performed By: #### 2 4323-8 ####ERNST PATEL LABIA [id number] [place] [address] [place] Glucose [Mass/Vol] 281 mg/dL High 70-99 [facility] Comment on above: Order Comment: Scott seals Type: BLOOD SPECIMENOrdering Facility: [facility] Address: [address] [place] [address] Result Comment: The [place] Diabetes Association (ADA) provides guidance for cutoff values for fasting glucose and random glucose. The ADA defines fasting as no caloric intake for at least 8 hours. Fasting plasma glucose results between 100 to 125 mg/dL indicate increased risk for diabetes (prediabetes).Fasting plasma glucose results greater than or equal to 126 mg/dL meet the criteria for diagnosis of diabetes. In the absence of unequivocal hyperglycemia, results should be confirmed by repeat testing. In a patient with classic symptoms of hyperglycemia or hyperglycemic crisis, random plasma glucose results greater than or equal to 200 mg/dL meet the criteria for diagnosis of diabetes.Reference: Standards of Medical Care in Diabetes 2016, [place] [employer]. Diabetes Care. 2016.39(Suppl 1). Performed By: #### 2 4323-8 ####ERNST [facility] GREEN LABCLIA [id number] [place] [address] [place] Potassium [Moles/Vol] 4.6 mmol/L Normal 3.5-5.1 [facility] Comment on above: Order Comment: Speci men Type: BLOOD SPECIMENOrdering Facility: [facility] Address: [address] [place] [address] Performed By: #### 2 4323-8 ####[facility] GREEN LABCLIA [id number] [place] [address] [place] Protein [Mass/Vol] 6.8 g/dL Normal 6.4-8.2 [facility] Comment on above: Order Comment: Speci men Type: BLOOD SPECIMENOrdering Facility: [facility] Address: [address] [place] [address] Performed By: #### 2 4323-8 ####[facility] LABCLIA [id number] [place] [address] [place] Sodium [Moles/Vol] 138 mmol/L Normal 136-145 [facility] Comment on above: Order Comment: Speci men Type: BLOOD SPECIMENOrdering Facility: [facility] Address: [address] [place] [address] Performed By: #### 2 4323-8 ####[facility] [employer] LABCLIA [id number] [place] [address] [place] Urea nitrogen [Mass/Vol] 25 mg/dL High 7-18 [facility] Comment on above: Order Comment: Speci men Type: BLOOD SPECIMENOrdering Facility: [facility] Address: [address] [place] [address] Performed By: #### 2 4323-8 ####[facility] GREEN LABCLIA [id number] [place] [address] [place] ECG COMPLETEon 08-22-2022 ECG COMPLETE Normal [facility] ED NOTEon 08-22-2022 ED NOTE HNO ID: [id number] Author: Maryan Marcum RN Service: Emergency Medicine Author Type: Registered Nurse Type: ED Notes Filed: 08/22/2022 8:57 AM Note Text: Report given to [facility] here to take pt to 7107-2 Normal [facility] ED NOTE HNO ID: [id number] Author: Maryan Marcum RN Service: Emergency Medicine Author Type: Registered Nurse Type: ED Notes Filed: 08/22/2022 8:56 AM Note Text: Normal [facility] ED NOTE Normal [facility] ED NOTE Normal [facility] ED PROV NOTEon 08-22-2022 ED PROV NOTE Normal [facility] ED PROV NOTE Normal [facility] HISTORY PHYSICALon HISTORY PHYSICAL Normal [facility] Magnesium SerPl-mCncon 08-22 Magnesium [Mass/Vol] 1.6 mg/dL Low 1.7-2.3 [facility] Comment on above: Order Comment: Speci men Type: BLOOD SPECIMENOrdering Facility: [facility] Address: [address] [place] [address] Performed By: #### 1 9123-9 ####[facility] LABORATORYCLIA [id number] [address] [place] NT-proBNP SerPl-mCncon 08-22 Natriuretic peptide.B prohormone N-Terminal [Mass/Vol] 199 pg/mL High <125 [facility] Comment on above: Order Comment: Speci men Type: BLOOD SPECIMENOrdering Facility: [facility] Address: [address] [place] [address] Performed By: #### 3 3762-6, TROP ####[facility] LABCLIA [id number] [address] [place] Procalcitonin SerPl-mCncon 1 Procalcitonin [Mass/Vol] ng/mL Normal <0.09 [facility] Comment on above: Order Comment: Speci men Type: BLOOD SPECIMENOrdering Facility: [facility] Address: [address] [place] [address] Result Comment: For a guided interpretation of test results, please visit the Change in Procalcitonin Calculator, [email or web address]. Performed By: #### 2 4323-8, 3024-7, 3016-3, 51506-1 ####[facility] LABORATORYCLIA [id number] [place] [address] [place] SARS-CoV-2 RNA Resp Ql IGGY+p robeon 08-22-2022 SARS-CoV-2 (COVID-19) RNA IGYG+probe Ql (Resp) COVID 19 RESULT: SARS-CoV-2 (Agent of COVID-19) Not Detected by RT-PCR or equivalent method. This test has been authorized by FDA under an Emergency Use Authorization (EUA). Normal [facility] Comment on above: Performed By: #### 9 4500-6 ####[facility] [employer] LABCLIA [id number] [place] [address] [place] T4 Free SerPl-mCncon 022 Free T4 [Mass/Vol] 1.0 ng/dL Normal 0.9-1.7 [facility] Comment on above: Order Comment: Speci men Type: BLOOD SPECIMENOrdering Facility: [facility] Address: [address] [place] [address] Performed By: #### 2 4323-8, 3024-7, 3016-3, 65435-5 ####[facility] LABORATORYCLIA [id number] [place] [address] [place] TROPONIN Ion 08-22-2022 Troponin I.cardiac [Mass/Vol] 0.000 ng/mL Normal <0.040 [facility] Comment on above: Order Comment: Speci men Type: BLOOD SPECIMENOrdering Facility: [facility] Address: [address] [place] [address] Performed By: #### 3 3762-6, TROP ####[facility] [employer] LABCLIA [id number] [place] [id number] [place] TSH SerPl-aCncon 08-22-2022 TSH Qn 2.850 m[IU]/L Normal 0.270-4.200 [facility] Comment on above: Order Comment: Speci men Type: BLOOD SPECIMENOrdering Facility: [facility] Address: [address] [place] [address] Performed By: #### 2 4323-8, 3024-7, 3016-3, 58479-3 ####[facility] LABORATORYCLIA [id number] [place] [address] [place] US DVT LOWER BILon US DVT LOWER CHERISE Normal [facility] Urinalysis complete panel (U )on 08-22-2022 Bacteria LM.HPF (Urine sed) [#/Area] Many Abnormal None Seen [facility] Comment on above: Order Comment: Speci men Type: URINE SPECIMENOrdering Facility: [facility] Address: [address] [place] [address] Performed By: #### 2 4356-8 ####[facility] LABORATORYCLIA [id number] [address] STATES [facility] Bilirubin Ql (U) Negative Normal Negative [facility] Comment on above: Order Comment: Speci men Type: URINE SPECIMENOrdering Facility: [facility] Address: [address] [place] [address] Performed By: #### 2 4356-8 ####[facility] LABORATORYCLIA [id number] [address] [place] Clarity (Unsp spec) Clear Normal Clear [facility] Comment on above: Order Comment: Speci men Type: URINE SPECIMENOrdering Facility: [facility] Address: [address] [place] [address] Performed By: #### 2 4356-8 ####[facility] LABORATORYCLIA [id number] [address] [place] Color (U) Light Yellow Normal yellow [facility] Comment on above: Order Comment: Speci men Type: URINE SPECIMENOrdering Facility: [facility] Address: [address] [place] [address] Performed By: #### 2 4356-8 ####[facility] LABORATORYCLIA [id number] [address] Epithelial cells LM.HPF (Urine sed) [#/Area] Few Abnormal None Seen [facility] Comment on above: Order Comment: Speci men Type: URINE SPECIMENOrdering Facility: [facility] Address: [address] [place] [address] Performed By: #### 2 4356-8 ####[facility] LABORATORYCLIA [id number] [address] Glucose Test strip (U) [Mass/Vol] 2+ Abnormal Negative [facility] Comment on above: Order Comment: Speci men Type: URINE SPECIMENOrdering Facility: [facility] Address: [address] [place] [address] Performed By: #### 2 4356-8 ####[facility] LABORATORYCLIA [id number] [address] STATES [facility] Hemoglobin Ql (U) 1+ Abnormal Negative [facility] Comment on above: Order Comment: Speci men Type: URINE SPECIMENOrdering Facility: [facility] Address: [address] [place] [address] Performed By: #### 2 4356-8 ####[facility] LABORATORYCLIA [id number] [address] Hyaline casts (Urine sed) [#/Area] 1-3 /LPF Abnormal 0 /LPF [facility] Comment on above: Order Comment: Speci men Type: URINE SPECIMENOrdering Facility: [facility] Address: [address] [place] [address] Performed By: #### 2 4356-8 ####[facility] LABORATORYCLIA [id number] [address] Ketones Ql (U) Negative Normal Negative [facility] Comment on above: Order Comment: Speci men Type: URINE SPECIMENOrdering Facility: [facility] Address: [address] [place] [address] Performed By: #### 2 4356-8 ####[facility] LABORATORYCLIA [id number] [address] Leukocyte esterase Test strip Ql (U) 250 Ha/mL Abnormal Negative [facility] Comment on above: Order Comment: Speci men Type: URINE SPECIMENOrdering Facility: [facility] Address: [address] [place] [address] Performed By: #### 2 4356-8 ####[facility] LABORATORYCLIA [id number] [address] Nitrite Ql (U) 1+ Abnormal Negative [facility] Comment on above: Order Comment: Speci men Type: URINE SPECIMENOrdering Facility: [facility] Address: [address] [place] [address] Performed By: #### 2 4356-8 ####[facility] LABORATORYCLIA [id number] [address] pH (U) 6.0 [pH] Normal 5.0-8.0 [facility] Comment on above: Order Comment: Speci men Type: URINE SPECIMENOrdering Facility: [facility] Address: [address] [place] [address] Performed By: #### 2 4356-8 ####[facility] LABORATORYCLIA [id number] [address] Protein (U) [Mass/Vol] Negative Normal Negative [facility] Comment on above: Order Comment: Speci men Type: URINE SPECIMENOrdering Facility: [facility] Address: [address] [place] [address] Performed By: #### 2 4356-8 ####[facility] LABORATORYCLIA [id number] [address] [place] RBC LM.HPF (Urine sed) [#/Area] 0-3 /HPF Normal 0-3 /HPF [facility] Comment on above: Order Comment: Speci men Type: URINE SPECIMENOrdering Facility: [facility] Address: [address] [place] [address] Performed By: #### 2 4356-8 ####[facility] LABORATORYCLIA [id number] [address] STATES [facility] Specific gravity (U) [Rel density] 1.009 Normal 1.005-1.030 [facility] Comment on above: Order Comment: Speci men Type: URINE SPECIMENOrdering Facility: [facility] Address: [address] [place] [address] Performed By: #### 2 4356-8 ####[facility] LABORATORYCLIA [id number] [place] [address] [place] Urobilinogen Ql (U) 1+ Abnormal Negative [facility] Comment on above: Order Comment: Speci men Type: URINE SPECIMENOrdering Facility: [facility] Address: [address] [place] [address] Performed By: #### 2 4356-8 ####[facility] LABORATORYCLIA [id number] [address] STATES OF [facility] WBC LM.HPF (Urine sed) [#/Area] 6-10 /HPF Abnormal 0-5 /HPF [facility] Comment on above: Order Comment: Speci men Type: URINE SPECIMENOrdering Facility: [facility] Address: [address] [place] [address] Performed By: #### 2 4356-8 ####[facility] LABORATORYCLIA [id number] [address] [place] XR CHEST 1V FRONTALon 2021 XR CHEST 1V FRONTAL Normal [facility] CNPNon 08-21-2022 CNPN Normal [facility] CNPNon 08-17-2022 CNPN Normal [facility] CNPTOUTREACHon 08-17-2022 CNPTOUTREACH Normal [facility] CNOVon 2022 CNOV Normal [facility] CNPNon [facility]-02-20[facility] KIMBERLY PATEL ([id number]) 1955 F [facility] Date Time Provider Department 08/02/22 VAL ENRIQUEZ [facility] During your visit today, we recorded the following information about you: Alexandro Qureshi RN 08/02/2022 12:03 PM Signed Patient calling in for ERFU appointment with Dr. Enriquez for her rash. Please call patient back. thanks Sneha Hager 08/02/2022 2:21 PM Signed Patient contacted. Dr Enriquez is not available until sep 05. Patient declined to schedule She will call the [facility] at [phone] Allergies As of Date: 08/02/2022 Noted Allergy Reaction DILAUDID (HYDROMORPHONE (BULK)) 05/30/2012 11 - Vomiting JARDIANCE (EMPAGLIFLOZIN) 11/07/2021 14 - Other: See Comments Comments: UTI METFORMIN 05/30/2012 6 - Diarrhea MORPHINE 05/30/2012 11 - Vomiting ONDANSETRON 02/14/2021 16 - Unknown PENICILLINS 05/30/2012 2 - Rash TRULICITY (DULAGLUTIDE) 11/07/2021 8 - GI Upset Comments: Nausea/Vomiting Date Reviewed: 08/02/2022 Reviewed by: Agustin Barahona APRN.TOUR ACTOR - Fully Assessed Reason for Visit: Appointment [186] Prescriptions as of 08/02/2022 - nystatin (MYCOSTATIN) powder Apply 1 application to affected area three times daily for 14 days. - isosorbide mononitrate ER (IMDUR) 30 mg 24 hr tablet TAKE 1 TABLET BY MOUTH EVERY DAY - insulin lispro (HUMALOG KWIKPEN INSULIN) 200 unit/mL (3 mL) injection Inject 40 units subcutaneously before breakfast, 40 units subcutaneously before lunch, 40 units subcutaneously before dinner. Administer this within 15 minutes before your meals or immediately after your meals. - insulin detemir U-100 (LEVEMIR FLEXTOUCH U-100 INSULIN) 100 unit/mL (3 mL) injection pen Inject 50 units subcutaneously in the AM, 80 units subcutaneously in the PM - Lancets lancets Use as directed to check blood sugar 4 times daily, insulin: yes, E11.42 - blood sugar diagnostic (ONETOUCH ULTRA TEST) test strip Use as directed to check your blood sugar 4 times daily. insulin: yes, E11.42 - linaGLIPtin (TRADJENTA) 5 mg tab Take 1 tablet by mouth once daily. - pregabalin (LYRICA) 75 mg capsule Take 1 capsule by mouth twice daily for 180 days. - psyllium husk, with sugar, (METAMUCIL) 3.4 gram packet Take 1 Packet by mouth once daily. - furosemide (LASIX) 20 mg tablet Take 2 tablets by mouth once daily. - Insulin Conover, Disposable, (PEN NEEDLE) 31 gauge x 3/16 Use as directed to inject insulin 5 times daily as directed. insulin: yes, E11.42 - albuterol HFA (PROVENTIL HFA, VENTOLIN HFA) 90 mcg/actuation inhaler Inhale 2 puffs by mouth every 4 hours as needed for wheezing/shortness of breath - fluticasone-vilanterol (BREO ELLIPTA) 200-25 mcg/dose inhaler Inhale 1 puff by mouth every day as directed - ezetimibe (ZETIA) 10 mg tablet TAKE 1 TABLET BY MOUTH EVERY DAY - metoprolol succinate ER (TOPROL XL) 25 mg 24 hr tablet Take 1 tablet by mouth every day - nitroglycerin sublingual (NITROQUICK) 0.4 mg SL tablet Dissolve 1 tablet under the tongue as needed for chest pain. If no pain relief call 911. - losartan (COZAAR) 50 mg tablet Take 1 tablet by mouth every day - atorvastatin (LIPITOR) 80 mg tablet Take 1 tablet by mouth every day - mupirocin (BACTROBAN) 2 % ointment as needed. - albuterol (PROVENTIL) 2.5 mg /3 mL (0.083 %) nebulizer solution Use 3 mL via nebulizer every 4 hours as needed for wheezing/shortness of breath. - flash glucose scanning reader (FREESTYLE GABRIELLE 2 READER) 1 Each. Use as directed to check blood sugars 3 times daily. Scan FreeStyle Gabrielle 2 sensors at least every 8 hours. - flash glucose sensor (FREESTYLE GABRIELLE 2 SENSOR) kit 2 Each. Use as directed to check blood sugars 3 times daily. Scan FreeStyle Gabrielle 2 sensors at least every 8 hours. Replace sensor every 14 days. - omeprazole (PRILOSEC) 20 mg capsule Take 1 capsule by mouth once daily. - Lancing Device (LANCING DEVICE WITH LANCETS) [facility] Use as directed to check blood sugar 3 times daily, insulin: yes, E11.9 - HYDROcodone-Acetaminoph en (NORCO) 7.5-325 mg per tablet Take 1 tablet by mouth once daily as needed for pain. - polyethylene glycol 3350 (MIRALAX, GLYCOLAX) 17 gram packet Take 1 Packet by mouth once daily as needed (constipation). - WALKER ROLLATOR SEAT WITH 6 WHEELS - RED Walker rollator with seat - aspirin, enteric coated (ASPIRIN, ENTERIC COATED) 81 mg EC tablet Take 81 mg by mouth once daily. - ranolazine SR (RANEXA) 1,000 mg tab ER 12 hr Take 1,000 mg by mouth twice daily. Meds Comments as of 07/08/2021: 07/08/21 The medications are managed by this patient by: PATIENT Chiquita Bedolla RPh 02/10/21 The medications are managed by this patient by: PATIENT Chiquita Bedolla PharmD 12/03/20 The medications are managed by this patient by: PATIENT Quique Guzmán PharmD Problem List As Of Date 08/02/2022 Noted Resolved Heart disease (or (more content not included)... Normal [facility] Lidia 07-06-2022 CNPN Telephone (PMSTOW) KIMBERLY PATEL ([id number]) 1955 F [facility] Date Time Provider Department 07/06/22 SUSAN CUELLO During your visit today, we recorded the following information about you: Susan Cuello RPh 07/06/2022 6:03 PM Signed Patient has reached A1c goal of <8% and is now following with new PCP outside of my consult scope. To be discharged from pharmD services now. PharmD removed from patient's CareTeam. Thank you, Susan Cuello PharmD, BCACP Susan Cuello RPh 07/06/2022 6:03 PM Signed Care Transition Back to PCP Our mutual patient, Kimberly Patel, has achieved adequate control of their Diabetes during their care with us. We will not be scheduling further follow up with pharmacy at this time. They have been encouraged to follow up with you for ongoing management. Next PCP team appointment: not yet scheduled Most recent PCP appointment: 07/05/22 Thank you for utilizing primary care pharmacy services. Thank you, Susan Cuello PharmD, BHAVIKCP Agustin Barahona APRN.TOUR ACTOR 07/07/2022 10:58 AM Signed Noted. Thank you for your exceptional care. 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 Administer this within 15 minutes before your meals or immediately after your meals. - insulin detemir U-100 (LEVEMIR FLEXTOUCH U-100 INSULIN) 100 unit/mL (3 mL) injection pen Inject 50 units subcutaneously in the AM, 80 units subcutaneously in the PM - Lancets lancets Use as directed to check blood sugar 4 times daily, insulin: yes, E11.42 - blood sugar diagnostic (ONETOUCH ULTRA TEST) test strip Use as directed to check your blood sugar 4 times daily. insulin: yes, E11.42 - linaGLIPtin (TRADJENTA) 5 mg tab Take 1 tablet by mouth once daily. - predniSONE (DELTASONE) 10 mg tablet Take 4 tablets by mouth once daily for 4 days, THEN 3 tablets once daily for 3 days, THEN 2 tablets once daily for 2 days, THEN 1 tablet once daily for 1 day. - pregabalin (LYRICA) 75 mg capsule Take 1 capsule by mouth twice daily for 180 days. - psyllium husk, with sugar, (METAMUCIL) 3.4 gram packet Take 1 Packet by mouth once daily. - furosemide (LASIX) 20 mg tablet Take 2 tablets by mouth once daily. - Insulin Conover, Disposable, (PEN NEEDLE) 31 gauge x 3/16 Use as directed to inject insulin 5 times daily as directed. insulin: yes, E11.42 - albuterol HFA (PROVENTIL HFA, VENTOLIN HFA) 90 mcg/actuation inhaler Inhale 2 puffs by mouth every 4 hours as needed for wheezing/shortness of breath - fluticasone-vilanterol (BREO ELLIPTA) 200-25 mcg/dose inhaler Inhale 1 puff by mouth every day as directed - ezetimibe (ZETIA) 10 mg tablet TAKE 1 TABLET BY MOUTH EVERY DAY - metoprolol succinate ER (TOPROL XL) 25 mg 24 hr tablet Take 1 tablet by mouth every day - isosorbide mononitrate ER (IMDUR) 30 mg 24 hr tablet Take 1 tablet by mouth once daily. - nitroglycerin sublingual (NITROQUICK) 0.4 mg SL tablet Dissolve 1 tablet under the tongue as needed for chest pain. If no pain relief call 911. - losartan (COZAAR) 50 mg tablet Take 1 tablet by mouth every day - atorvastatin (LIPITOR) 80 mg tablet Take 1 tablet by mouth every day - mupirocin (BACTROBAN) 2 % ointment as needed. - albuterol (PROVENTIL) 2.5 mg /3 mL (0.083 %) nebulizer solution Use 3 mL via nebulizer every 4 hours as needed for wheezing/shortness of breath. - flash glucose scanning reader (FREESTYLE GABRIELLE 2 READER) 1 Each. Use as directed to check blood sugars 3 times daily. Scan FreeStyle Gabrielle 2 sensors at least every 8 hours. - flash glucose sensor (FREESTYLE GABRIELLE 2 SENSOR) kit 2 Each. Use as directed to check blood sugars 3 times daily. Scan FreeStyle Gabrielle 2 sensors at least every 8 hours. Replace sensor every 14 days. - omeprazole (PRILOSEC) 20 mg capsule Take 1 capsule by mouth once daily. - Lancing Device (LANCING DEVICE WITH LANCETS) misc Use as directed to check blood sugar 3 times daily, insulin: yes, E11.9 - HYDROcodone-Acetaminoph en (NORCO) 7.5-325 mg per tablet Take 1 tablet by mouth once daily as needed for pain. - polyethylene glycol 3350 (MIRALAX, GLYCOLA (more content not included)... Normal [facility] 06-29-2022 [facility] KIMBERLY PATEL ([id number]) 1955 F Date Time Provider Department 06/29/22 FRANKIE DENG [facility] During your visit today, we recorded the following information about you: Domenica Olvera 06/29/2022 8:55 AM Signed Please call pt to verify if she will be continuing with [facility] or staying with her currently listed PCP and update chart accordingly. Domenica Denton Pss 06/30/2022 6:10 PM Signed Patient, , states she is cancelling [facility] Services and now has a new PCP as of 06/23/22. Modesta Denton Pss Nanette Garcia, PSS 11/30/2022 10:40 AM Signed Patient discharged from Medical Care at Home: Discharge Reason: Change - Doctor Change/left practice Discharge Date: 06/30/2022 Please cancel any pending orders-[facility] ,[facility], upcoming appointments with [facility] Allergies As of Date: 06/29/2022 Noted Allergy Reaction DILAUDID (HYDROMORPHONE (BULK)) 05/30/2012 11 - Vomiting JARDIANCE (EMPAGLIFLOZIN) 11/07/2021 14 - Other: See Comments Comments: UTI METFORMIN 05/30/2012 6 - Diarrhea MORPHINE 05/30/2012 11 - Vomiting ONDANSETRON 02/14/2021 16 - Unknown PENICILLINS 05/30/2012 2 - Rash TRULICITY (DULAGLUTIDE) 11/07/2021 8 - GI Upset Comments: Nausea/Vomiting Date Reviewed: 06/26/2022 Reviewed by: Agustin Barahona APRN.TOUR ACTOR - Fully Assessed Reason for Visit: Patient Update [1234] Cmt: Verify PCP cancelled [facility] [Other] Prescriptions as of 11/30/2022 - hydrOXYzine HCl (ATARAX) 25 mg tablet TAKE 1 TABLET BY MOUTH THREE TIMES DAILY NEEDED FOR ITCHING/RASH (FOR ITCHING). - predniSONE (DELTASONE) 10 mg tablet Take 6 tablets by mouth once daily for 7 days, THEN 5 tablets once daily for 7 days, THEN 4 tablets once daily for 7 days, THEN 3 tablets once daily for 7 days, THEN 2 tablets once daily for 7 days, THEN 1 tablet once daily for 7 days. - losartan (COZAAR) 50 mg tablet Take 50 mg by mouth once daily. - pantoprazole DR (PROTONIX) 40 mg tablet Take 40 mg by mouth once daily. - Methenamine Hippurate (HIPREX) 1 gram tablet Take 1 g by mouth twice daily with meals. - budesonide-formoterol (SYMBICORT) 160-4.5 mcg/actuation inhaler Inhale 2 Puffs as instructed twice daily. - doxycycline hyclate (DOXY-CAPS ORAL) Take 100 mg by mouth twice daily. - insulin detemir U-100 (LEVEMIR FLEXTOUCH U-100 INSULIN) 100 unit/mL (3 mL) injection pen Inject 60 units subcutaneously in the AM, 60 units subcutaneously in the PM - insulin lispro (HUMALOG KWIKPEN INSULIN) 200 unit/mL (3 mL) injection Inject 40 units subcutaneously before breakfast, 40 units subcutaneously before lunch, 40 units subcutaneously before dinner. Administer this within 15 minutes before your meals or immediately after your meals. - zinc oxide 20 % ointment Apply to affected area as needed. - metoprolol succinate ER (TOPROL XL) 25 mg 24 hr tablet Take 1 tablet by mouth every day - clobetasol (TEMOVATE) 0.05 % ointment Apply to affected area twice daily. - torsemide (SOAANZ) 40 mg tablet Take 1 tablet by mouth once daily. - pregabalin (LYRICA) 75 mg capsule Take 1 capsule by mouth twice daily. - isosorbide mononitrate ER (IMDUR) 30 mg 24 hr tablet TAKE 1 TABLET BY MOUTH EVERY DAY - linaGLIPtin (TRADJENTA) 5 mg tab Take 1 tablet by mouth once daily. - albuterol HFA (PROVENTIL HFA, VENTOLIN HFA) 90 mcg/actuation inhaler Inhale 2 puffs by mouth every 4 hours as needed for wheezing/shortness of breath - fluticasone-vilanterol (BREO ELLIPTA) 200-25 mcg/dose inhaler Inhale 1 puff by mouth every day as directed - ezetimibe (ZETIA) 10 mg tablet TAKE 1 TABLET BY MOUTH EVERY DAY - nitroglycerin sublingual (NITROQUICK) 0.4 mg SL tablet Dissolve 1 tablet under the tongue as needed for chest pain. If no pain relief call 911. - atorvastatin (LIPITOR) 80 mg tablet Take 1 tablet by mouth every day - albuterol (PROVENTIL) 2.5 mg /3 mL (0.083 %) nebulizer solution Use 3 mL via nebulizer every 4 hours as needed for wheezing/shortness of breath. - flash glucose scanning reader (FREESTYLE GABRIELLE 2 READER) 1 Each. Use as directed to check blood sugars 3 times daily. Scan FreeStyle Gabrielle 2 sensors at least every 8 hours. - flash glucose sensor (FREESTYLE GABRIELLE 2 SENSOR) kit 2 Each. Use as directed to check blood sugars 3 times daily. Scan FreeStyle Gabrielle 2 sensors at least every 8 hours. Replace sensor every 14 days. - aspirin, enteric coated (ASPIRIN, ENTERIC COATED) 81 mg EC tablet Take 81 mg by mouth once daily. - ranolazine SR (RANEXA) 1,000 mg tab ER 12 hr Take 1,000 mg by mouth twice daily. Meds Comments as of 07/08/2021: 07/08/21 The medications are managed by this patient by: PATIENT Chiquita Bedolla, [facility] 02/10/21 The medications are managed by this patient by: PATIENT Chiquita Bedolla, PharmD 12/03/20 The medications are managed by this patient by: PATIENT Da (more content not included)... Normal [facility] CBC W Auto Differential pane l (Bld)on 06-23-2022 Abs Immature Gran 0.10 k/uL High <0.10 k/uL [facility] Basophils (Bld) [#/Vol] 0.05 10*3/uL <0.11 k/uL [facility] Basophils/100 WBC (Bld) 0.6 % C [facility] Differential cell count method Nom (Bld) Auto [facility] Eosinophils (Bld) [#/Vol] 0.36 10*3/uL <0.46 k/uL [facility] Eosinophils/100 WBC (Bld) 4.3 % [facility] Erythrocyte distribution width (RBC) [Ratio] 13.4 % 11.5 - 15.0 % [facility] Hematocrit (Bld) [Volume fraction] 33.4 % Low 36.0 - 46.0 % [facility] Hemoglobin (Bld) [Mass/Vol] 10.0 g/dL Low 11.5 - 15.5 g/dL [facility] Immature Gran % 1.2 % [facility] Lymphocytes (Bld) [#/Vol] 1.22 10*3/uL 1.00 - 4.00 k/uL [facility] Lymphocytes/100 WBC (Bld) 14.7 % [facility] MCH (RBC) [Entitic mass] 28.1 pg 26.0 - 34.0 pg [facility] MCHC (RBC) [Mass/Vol] 29.9 g/dL Low 30.5 - 36.0 g/dL [facility] MCV (RBC) [Entitic vol] 93.8 fL 80.0 - 100.0 fL [facility] Monocytes (Bld) [#/Vol] 0.50 10*3/uL <0.87 k/uL [facility] Monocytes/100 WBC (Bld) 6.0 % [facility] Neutrophils (Bld) [#/Vol] 6.09 10*3/uL 1.45 - 7.50 k/uL [facility] Neutrophils/100 WBC (Bld) 73.2 % [facility] Nucleated RBC (Bld) [#/Vol] <0.01 k/uL [facility] Nucleated RBC/100 WBC (Bld) [Ratio] 0.0 /100 WBC [facility] Platelet mean volume (Bld) [Entitic vol] 8.7 fL Low 9.0 - 12.7 fL [facility] Platelets (Bld) [#/Vol] 252 10*3/uL 150 - 400 k/uL [facility] RBC (Bld) [#/Vol] 3.56 10*6/uL Low 3.90 - 5.2 0 m/uL [facility] WBC (Bld) [#/Vol] 8.32 10*3/uL 3.70 - 11.00 k/uL [facility] Comprehensive metabolic 2000 panelon 06-23-2022 Albumin [Mass/Vol] 4.0 g/dL 3.9 - 4.9 g/dL [facility] ALP [Catalytic activity/Vol] 88 U/L 34 - 123 U/L [facility] ALT With P-5'-P [Catalytic activity/Vol] 9 U/L 7 - 38 U/L [facility] Anion gap [Moles/Vol] 10 mmol/L 9 - 18 mmol/L [facility] AST With P-5'-P [Catalytic activity/Vol] 12 U/L Low 13 - 35 U/L [facility] Bilirubin [Mass/Vol] 0.4 mg/dL 0.2 - 1 .3 mg/dL [facility] Calcium [Mass/Vol] 9.2 mg/dL 8.5 - 10. 2 mg/dL [facility] Chloride [Moles/Vol] 103 mmol/L 97 - 10 5 mmol/L [facility] CO2 [Moles/Vol] 29 mmol/L 22 - 30 mmol/L [facility] Creatinine [Mass/Vol] 1.31 mg/dL High 0.58 - 0.96 mg/dL [facility] Estimated Glomerular Filtration Rate 46 mL/min/1.73m Low >=60 mL/min/1.73 m [facility] Glucose [Mass/Vol] 200 mg/dL High 74 - 99 mg/dL [facility] Potassium [Moles/Vol] 4.5 mmol/L 3.7 - 5.1 mmol/L [facility] Protein [Mass/Vol] 6.4 g/dL 6.3 - 8.0 g/dL [facility] Sodium [Moles/Vol] 142 mmol/L 136 - 144 mmol/L [facility] Urea nitrogen [Mass/Vol] 21 mg/dL 7 - 21 mg/dL [facility] HEMOGLOBIN A1C (POC)on 06-23 HbA1c (Bld) [Mass fraction] 7.9 % Abnormal 4.2 - 5.6 % [facility] Lipid 1996 panelon Cholesterol [Mass/Vol] 153 mg/dL <200 mg/dL [facility] Cholesterol in HDL [Mass/Vol] 48 mg/dL >39 mg/dL [facility] Cholesterol in LDL [Mass/Vol] 68 mg/dL <100 mg/dL [facility] Cholesterol in LDL/Cholesterol in HDL [Mass ratio] 1.42 {ratio} <2.54 [facility] Cholesterol in VLDL [Mass/Vol] 37 mg/dL High <30 mg/dL [facility] Cholesterol non HDL [Mass/Vol] 105 mg/dL <130 mg/dL [facility] Cholesterol.total/Isatu sterol in HDL [Mass ratio] 3.19 {ratio} <5.10 [facility] Fasting Time 12 hrs [facility] Triglyceride [Mass/Vol] 187 mg/dL High <150 mg/dL [facility] TSH BLDon 06-23-2022 TSH Qn 2.950 m[IU]/L 0.270 - 4.200 mIU/L [facility] CNPNon 05-08-2022 CNPN Telephone ([facility]) KIMBERLY PATEL ([id number]) 1955 [address] [facility] Date Time Provider Department 05/08/22 FRANKIE DENG [facility] During your visit today, we recorded the following information about you: Frankie Deng MD 05/08/2022 6:49 PM Signed Page by dtr. Pt [facility]'d [facility] yesterday. Had sepsis and UTI. Furosemide held. Later restarted with reduction in edema. Decrease urine output and increased edema. Mild constipation. Reviewed that constipation can lead to impaired urine output. Trial Miralax. Suspect that once sufficient BM occurs, urine output will improve and LE edema will decrease. Call back if constipation persists. Please note that pt needs post-hospitalization fu. Thanks. KRISTIN Mendiola 05/10/2022 4:37 PM Signed Left message at [phone] requesting call back to confirm post hospital for 05/12. KRISTIN Mendiola PSS 05/11/2022 12:57 PM Signed Visit cancelled. Call back not received from family. Will make further attempts to reschedule. KRISTIN Mendiola Allergies As of Date: 05/08/2022 Noted Allergy Reaction DILAUDID (HYDROMORPHONE (BULK)) 05/30/2012 11 - Vomiting JARDIANCE (EMPAGLIFLOZIN) 11/07/2021 14 - Other: See Comments Comments: UTI METFORMIN 05/30/2012 6 - Diarrhea MORPHINE 05/30/2012 11 - Vomiting ONDANSETRON 02/14/2021 16 - Unknown PENICILLINS 05/30/2012 2 - Rash TRULICITY (DULAGLUTIDE) 11/07/2021 8 - GI Upset Comments: Nausea/Vomiting Date Reviewed: 04/14/2022 Reviewed by: Susan Cuello [facility] - Fully Assessed Reason for Visit: Constipation [25] Edema [39] Prescriptions as of 05/12/2022 - insulin lispro (HUMALOG KWIKPEN INSULIN) 200 unit/mL (3 mL) injection Inject 40 units subcutaneously before breakfast, 40 units subcutaneously before lunch, 40 units subcutaneously before dinner. Administer this within 15 minutes before your meals or immediately after your meals. - insulin detemir U-100 (LEVEMIR FLEXTOUCH U-100 INSULIN) 100 unit/mL (3 mL) injection pen Inject 60 units subcutaneously in the AM, 77 units subcutaneously in the PM - Insulin Conover, Disposable, (PEN NEEDLE) 31 gauge x 3/16 Use as directed to inject insulin 5 times daily as directed. insulin: yes, E11.42 - furosemide (LASIX) 20 mg tablet Take 1 tablet by mouth once daily. - pregabalin (LYRICA) 75 mg capsule Take 1 capsule by mouth twice daily for 180 days. - metoprolol succinate ER (TOPROL XL) 25 mg 24 hr tablet Take 1 tablet by mouth every day - isosorbide mononitrate ER (IMDUR) 30 mg 24 hr tablet Take 1 tablet by mouth once daily. - nitroglycerin sublingual (NITROQUICK) 0.4 mg SL tablet Dissolve 1 tablet under the tongue as needed for chest pain. If no pain relief call 911. - ezetimibe (ZETIA) 10 mg tablet TAKE 1 TABLET BY MOUTH EVERY DAY - losartan (COZAAR) 50 mg tablet Take 1 tablet by mouth every day - atorvastatin (LIPITOR) 80 mg tablet Take 1 tablet by mouth every day - linaGLIPtin (TRADJENTA) 5 mg tab Take 1 tablet by mouth once daily. - fluticasone-vilanterol (BREO ELLIPTA) 200-25 mcg/dose inhaler Inhale 1 Inhalation as instructed once daily. - lancets 33 gauge - mupirocin (BACTROBAN) 2 % ointment as needed. - albuterol (PROVENTIL) 2.5 mg /3 mL (0.083 %) nebulizer solution Use 3 mL via nebulizer every 4 hours as needed for wheezing/shortness of breath. - albuterol HFA (PROVENTIL HFA, VENTOLIN HFA) 90 mcg/actuation inhaler Inhale 2 Puffs as instructed every 4 hours as needed for wheezing/shortness of breath. - flash glucose scanning reader (FREESTYLE GABRIELLE 2 READER) 1 Each. Use as directed to check blood sugars 3 times daily. Scan FreeStyle Gabrielle 2 sensors at least every 8 hours. - flash glucose sensor (FREESTYLE GABRIELLE 2 SENSOR) kit 2 Each. Use as directed to check blood sugars 3 times daily. Scan FreeStyle Gabrielle 2 sensors at least every 8 hours. Replace sensor every 14 days. - omeprazole (PRILOSEC) 20 mg capsule Take 1 capsule by mouth once daily. - Lancets lancets Use as directed to check blood sugar 3 times daily, insulin: yes, E11.9 - Lancing Device (LANCING DEVICE WITH LANCETS) misc Use as directed to check blood sugar 3 times daily, insulin: yes, E11.9 - HYDROcodone-Acetaminoph en (NORCO) 7.5-325 mg per tablet Take 1 tablet by mouth once daily as needed for pain. - polyethylene glycol 3350 (MIRALAX, GLYCOLAX) 17 gram packet Take 1 Packet by mouth once daily as needed (constipation). - WALKER ROLLATOR SEAT WITH 6 WHEELS - RED Walker rollator with seat - aspirin, enteric coated (ASPIRIN LOW DOSE) 81 mg EC tablet Take 81 mg by mouth once daily. - ranolazine SR (RANEXA) 1,000 mg tab ER 12 hr Take 1,000 mg by mouth twice daily. Meds Comments as of 07/08/2021: 07/08/21 The medications are managed by this patient by: PATIENT Chiquita Bedolla, [facility] 02/10/21 The medications are managed by this patient (more content not included)... Normal [facility] CBC with Auto Differentialon 05-06-2022 Hematocrit (Bld) [Volume fraction] 28.0 % Low 35.0 - 47.0 % [facility] Work Phone: [phone] Hemoglobin (Bld) [Mass/Vol] 9.4 g/dL Low 11.7 - 16.0 g/dL [facility] Phone: [phone] Interpretation and review of laboratory results Abnormal [facility] Work Phone: [phone] MCH (RBC) [Entitic mass] 29.9 pg 26.0 - 34.0 pg [facility] Work Phone: [phone] MCHC (RBC) [Mass/Vol] 33.6 % 32.0 - 36.0 % [facility] Phone: [phone] MCV (RBC) [Entitic vol] 89.1 fL 79.0 - 98.0 fL [employer] Work Phone: [phone] Platelet distribution width (Bld) [Ratio] 13.5 % 11.5 - 14.5 % [facility] Phone: [phone] Platelet mean volume (Bld) [Entitic vol] 6.6 fL Low 7.4 - 12.4 fL [facility] Phone: [phone] Comment on above: MPV is a calculated measurement using platelet volume ratio. Platelets (Bld) [#/Vol] 171 10*3/uL 140 - 440 10*3/uL [employer] Work Phone: [phone] RBC (Bld) [#/Vol] 3.14 10*6/uL Low 3.80 - 5.2 0 10*6/uL [facility] Work Phone: [phone] WBC (Bld) [#/Vol] 9.2 10*3/uL 3.6 - 10.7 10*3/uL [employer] Work Phone: [phone] Performed by [facility], [address] [place], [place] [id number] [place] [address] LAB [facility] Work Phone: [phone] CULTURE BLOODon 05-06-2022 Microscopic examination of blood, culture CULTURE BLOOD --> Status: F No growth at 5 days. Normal [facility] Comment on above: Performed By: #### L ACTS #### [address] [place] [place] [address] CULTURE BLOOD (Two)on 2021 Microscopic examination of blood, culture CULTURE BLOOD (Two) --> Status: F No growth at 5 days. [facility] Comment on above: Performed By: #### L ACTS #### [facility] [address] [place] [address] Comp Panel with Mg Reflexon 05-06-2022 ALP [Catalytic activity/Vol] 82 U/L Normal 38-126 [facility] Comment on above: Performed By: #### C ROMEO DEY MDIFF #### [facility] [address] [place] [address] #### PCAL #### [address] [address] ALT [Catalytic activity/Vol] 14 U/L Normal 0-34 [facility] Comment on above: Result Comment: The ALT test is performed by an updated assay method. Please note that the reference intervals have been changed and are now sex specific. Performed By: #### C DINA3ROMEO Rome, MDIFF #### [address] [place] [address] #### PCAL #### [address], [place] Calcium [Mass/Vol] 8.8 mg/dL Normal 8.4-10.4 [facility] Comment on above: Performed By: #### ROMEO LOPEZ MDIFF #### [facility] [address] [place] [address] #### PCAL #### [place] [address] [address] [facility], [place] Glucose [Mass/Vol] 242 mg/dL High 70-100 [facility] Comment on above: Performed By: #### C ROMEO DEY MDIFF #### [place] [address] [place] [address] #### PCAL #### [place] [address] [address] [facility], [place] Urea nitrogen [Mass/Vol] 27 mg/dL High 9-20 [facility] Comment on above: Performed By: #### ROMEO LOPEZ MDIFF #### [place] [address] [place] [address] #### PCAL #### [place] [address] [address] [facility], [place] Anion gap [Moles/Vol] 3 mmol/L Normal 3-13 [facility] Comment on above: Performed By: #### ROMEO LOPEZ MDIFF #### [place] [address] [place] [address] #### PCAL #### [place] [address] [address] [facility], [place] AST [Catalytic activity/Vol] 18 U/L Normal 15-46 [facility] Comment on above: Performed By: #### ROMEO LOPEZ MDIFF #### [facility] [address] [place] [address] #### PCAL #### [place] [address] [address] [facility], [place] Bilirubin [Mass/Vol] 0.4 mg/dL Normal 0.2-1.3 [facility] Comment on above: Performed By: #### ROMEO LOPEZ MDIFF #### [facility] [address] [place] [address] #### PCAL #### [address] CO2 [Moles/Vol] 32 mmol/L High 22-30 [facility] Comment on above: Performed By: #### C ROMEO DEY MDIFF #### [facility] [address] [place] [address] #### PCAL #### [place] [address] [place], [place] Creatinine [Mass/Vol] 1.48 mg/dL High 0.52-1.25 [facility] Comment on above: Performed By: #### C ROMEO DEY MDIFF #### [place] [address] [place] [address] #### PCAL #### [address] GFR/1.73 sq M.predicted among blacks MDRD (S/P/Bld) [Vol rate/Area] 42.7 mL/min/{1.73_m2} Abnormal >60 [facility] Comment on above: Performed By: #### C ROMEO DEY MDIFF #### [facility] [address] [place] [address] #### PCAL #### [address] GFR/1.73 sq M.predicted among non-blacks MDRD (S/P/Bld) [Vol rate/Area] 36.8 mL/min/{1.73_m2} Abnormal >60 [facility] Comment on above: Result Comment: KDIG O guidelines provide the following GFR categories: Stage GFR(ml/min/1.73 m2) Terms G1 >=90 Normal or high G2 60-89 Mildly decreased* G3a 45-59 Mildly to moderately decreased G3b 30-44 Moderately to severely decreased G4 15-29 Severely decreased G5 <15 Kidney failure *Relative to young adult level. In the absence of evidence of kidney damage, neither GFR category G1 nor G2 fulfill the criteria for CKD. The CKD-EPI equation is validated in individuals 18 years of age and older. Currently the best equation for estimating glomerular filtration rate (GFR) from serum creatinine in children is the Bedside Martinez equation. It is less accurate in patients with extremes of muscle mass, restriction of dietary protein, ingestion of creatine, extra-renal metabolism of creatinine, or treatment with medications that affect renal tubular creatinine secretion. Performed By: #### C ROMEO DEY MDIFF #### [facility] [address] [place] [address] #### PCAL #### [place] [address] [place] [address] Protein [Mass/Vol] 6.1 g/dL Low 6.3-8.2 [facility] Comment on above: Performed By: #### ROMEO LOPEZ MDIFF #### [address] [place] [address] #### PCAL #### [address] [address] Chloride [Moles/Vol] 102 mmol/L Normal 98-107 [facility] Comment on above: Performed By: #### ROMEO LOPEZ MDIFF #### [address] [place] [address] #### PCAL #### [address] [address] Potassium [Moles/Vol] 4.3 mmol/L Normal 3.5-5.1 [facility] Comment on above: Performed By: #### ROMEO LOPEZ MDIFF #### [place] [address] [place] [address] #### PCAL #### [address] [address] Sodium [Moles/Vol] 137 mmol/L Normal 135-145 [facility] Comment on above: Performed By: #### ROMEO LOPEZ MDIFF #### [place] [address] [place] [address] #### PCAL #### [place] [address] [place] [address] Albumin [Mass/Vol] 3.4 g/dL Low 3.5-5.0 [facility] Comment on above: Performed By: #### C ROMEO DEY MDIFF #### [facility] [address] [place] [address] #### PCAL #### [address] [address] [place] [address] Comprehensive Metabolic Pane l w/ Reflex to MGon 05-06-2022 Albumin [Mass/Vol] 3.4 g/dL Low 3.5 - 5.0 g/dL [employer] Work Phone: [phone] ALP (Bld) [Catalytic activity/Vol] 82 U/L 38 - 126 U/L [employer] Work Phone: ALT [Catalytic activity/Vol] 14 U/L 0 - 34 U/L [employer] Work Phone: Comment on above: The ALT test is perf ormed by an updated assay method. Please note that the reference intervals have been changed and are now sex specific. Anion gap [Moles/Vol] 3 mmol/L 3 - 13 mmol/L [employer] Work Phone: [phone] [Catalytic activity/Vol] 18 U/L 15 - 46 U/L [employer] Work Phone: [phone] Bilirubin [Mass/Vol] 0.4 mg/dL 0.2 - 1 .3 mg/dL [employer] Work Phone: Calcium [Mass/Vol] 8.8 mg/dL 8.4 - 10. 4 mg/dL [employer] Work Phone: [phone] Chloride [Moles/Vol] 102 mmol/L 98 - 10 7 mmol/L [employer] Work Phone: [phone] CO2 [Moles/Vol] 32 mmol/L High 22 - 30 mmol/L [employer] Work Phone: [phone] Creatinine [Mass/Vol] 1.48 mg/dL High 0.52 - 1.25 mg/dL [employer] Work Phone: [phone] IF NonAfrican Kittitian 36.8 mL/min Abnormal >60 [facility] Work Phone: Comment on above: KDIGO guidelines pro vide the following GFR categories: Stage GFR(ml/min/1.73 m2) Terms G1 >=90 Normal or high G2 60-89 Mildly decreased* G3a 45-59 Mildly to moderately decreased G3b 30-44 Moderately to severely decreased G4 15-29 Severely decreased G5 <15 Kidney failure *Relative to young adult level. In the absence of evidence of kidney damage, neither GFR category G1 nor G2 fulfill the criteria for CKD. The CKD-EPI equation is validated in individuals 18 years of age and older. Currently the best equation for estimating glomerular filtration rate (GFR) from serum creatinine in children is the Bedside Martinez equation. It is less accurate in patients with extremes of muscle mass, restriction of dietary protein, ingestion of creatine, extra-renal metabolism of creatinine, or treatment with medications that affect renal tubular creatinine secretion. Free PSA/Total PSA [Mass fraction] 6.1 g/dL Low 6.3 - 8.2 g/dL [facility] Work Phone: [phone] GFR/1.73 sq M.predicted among blacks MDRD (S/P/Bld) [Vol rate/Area] 42.7 mL/min/{1.73_m2} Abnormal >60 [facility] Work Phone: Glucose [Mass/Vol] 242 mg/dL High 70 - 100 mg/dL [facility] Work Phone: Interpretation and review of laboratory results Abnormal [facility] Work Phone: Potassium [Moles/Vol] 4.3 mmol/L 3.5 - 5.1 mmol/L [facility] Work Phone: [phone] Sodium [Moles/Vol] 137 mmol/L 135 - 145 mmol/L [facility] Work Phone: [phone] Urea nitrogen (BldV) [Mass/Vol] 27 mg/dL High 9 - 20 mg/dL [facility] Work Phone: Test Performed by [facility], [address] [place], [place] [address] [facility] Work Phone: Hemogram w/ Autodiffon 05-06 Erythrocyte distribution width (RBC) [Ratio] 13.5 % Normal 11.5-14.5 [facility] Comment on above: Performed By: #### ROMEO LOPEZ MDIFF #### [facility] [address] [place] [address] #### PCAL #### [address] Hematocrit (Bld) [Volume fraction] 28.0 % Low 35.0-47.0 [facility] Comment on above: Performed By: #### C ROMEO DEY MDIFF #### [facility] [address] [place] [address] #### PCAL #### [address] Hemoglobin (Bld) [Mass/Vol] 9.4 g/dL Low 11.7-16.0 [facility] Comment on above: Performed By: #### ROMEO LOPEZ MDIFF #### [place] [address] [place] [address] #### PCAL #### [address] MCH (RBC) [Entitic mass] 29.9 pg Normal 26.0-34.0 [facility] Comment on above: Performed By: #### ROMEO LOPEZ MDIFF #### [place] [address] [place] [address] #### PCAL #### [address] MCHC 33.6 % Normal 32.0-36.0 [facility] Comment on above: Performed By: #### ROMEO LOPEZ MDIFF #### [place] [address] [place] [address] #### PCAL #### [address] MCV (RBC) [Entitic vol] 89.1 fL Normal 79.0-98.0 [facility] Comment on above: Performed By: #### ROMEO LOPEZ MDIFF #### [place] [address] [place] [address] #### PCAL #### [address] [place], [place] Platelet mean volume (Bld) [Entitic vol] 6.6 fL Low 7.4-12.4 [facility] Comment on above: Result Comment: MPV is a calculated measurement using platelet volume ratio. Performed By: #### C ROMEO DEY MDIFF #### [place] [address] [place] [address] #### PCAL #### [address] Platelets (Bld) [#/Vol] 171 10*3/uL Normal 140-440 [facility] Comment on above: Performed By: #### C ROMEO DEY MDIFF #### [address] [facility] [place] [place] #### PCAL #### [address] RBC (Bld) [#/Vol] 3.14 10*6/uL Low 3.80-5.20 [facility] Comment on above: Performed By: #### C ROMEO DEY MDIFF #### [address] [place] #### PCAL #### [address] WBC (Bld) [#/Vol] 9.2 10*3/uL Normal 3.6-10.7 [facility] Comment on above: Performed By: #### C ROMEO DEY MDIFF #### [address] [place] [address] #### PCAL #### [address] Manual Diffon 05-06-2022 Abs Baso Cnt 0.1 10*3/uL Normal 0.0-0.2 [facility] Comment on above: Performed By: #### C ROMEO DEY, MDIFF #### [facility] [address] [place] [address] #### PCAL #### [address] [place] [address] [place], [place] Abs Eosin Cnt 0.2 10*3/uL Normal 0.0-0.5 [facility] Comment on above: Performed By: #### ROMEO LOPEZ MDIFF #### [facility] [address] [place] [address] #### PCAL #### [address] [place], [place] Abs Lymph Cnt 1.7 10*3/uL Normal 1.1-4.5 [facility] Comment on above: Performed By: #### C ROMEO DEY MDIFF #### [place] [address] [place] [address] #### PCAL #### [address] [place], [place] Abs Monocyte Cnt 0.6 10*3/uL Normal 0.2-1.1 [facility] Comment on above: Performed By: #### ROMEO LOPEZ MDIFF #### [place] [address] [place] [address] #### PCAL #### [address] Abs Neutrophile Cnt 6.2 10*3/uL Normal 2.2-8.2 [facility] Comment on above: Performed By: #### ROMEO LOPEZ MDIFF #### [place] [address] [place] [address] #### PCAL #### [address] Basophils 1 % Normal 0-2 [facility] Comment on above: Performed By: #### ROMEO LOPEZ MDIFF #### [place] [address] [place] [address] #### PCAL #### [address] [address] [place] [address] Eosinophils 2 % Normal 1-6 [facility] Comment on above: Performed By: #### C ROMEO DEY MDIFF #### [facility] [address] [place] [address] #### PCAL #### [facility] [address] [facility] [place] [address] Lymphocytes 19 % Low 20-40 [facility] Comment on above: Performed By: #### C ROMEO DEY MDIFF #### [facility] [address] [place] [address] #### PCAL #### [facility] [address] [place], [place] Metamyelocytes 2 % Abnormal <1 [facility] Comment on above: Performed By: #### C ROMEO DEY MDIFF #### [facility] [address] [place] [address] #### PCAL #### [facility] [address] [place], [place] Monocytes 7 % Normal 2-10 [facility] Comment on above: Performed By: #### C ROMEO DEY MDIFF #### [facility] [address] [place] [address] #### PCAL #### [facility] [address] [facility], [place] Myelocytes 2 % Abnormal <1 [facility] Comment on above: Performed By: #### ROMEO LOPEZ MDIFF #### [facility] [address] [place] [address] #### PCAL #### [facility] [address] [place], [place] Ovalocytes Slight Normal [facility] Comment on above: Performed By: #### C ROMEO DEY MDIFF #### [facility] [address] [place] [address] #### PCAL #### [facility] [address] [place], [place] Poikilocytosis Slight Normal [facility] Comment on above: Performed By: #### C ROMEO DEY MDIFF #### [facility] [address] [place] [address] #### PCAL #### [facility] [address] [place], [place] Polychromasia Slight Normal [facility] Comment on above: Performed By: #### C ROMEO DEY MDIFF #### [facility] [address] [place] [address] #### PCAL #### [facility] [address] [place], [place] RBC Morphology ABNORMAL Normal [facility] Comment on above: Performed By: #### C ROMEO DEY MDIFF #### [facility] [address] [place] [address] #### PCAL #### [facility] [address]. [place], [place] Seg Neutrophils 67 % Normal 40-80 [facility] Comment on above: Performed By: #### C ROMEO DEY MDIFF #### [facility] [address] [place] [address] #### PCAL #### [facility] [address]. [place], [place] Bands 0 % Normal 0-3 [facility] Comment on above: Performed By: #### ROMEO LOPEZ MDIFF #### [facility] [address] [place] [address] #### PCAL #### [facility] [address]. [place], [place] Cells counted 100 Normal [facility] Comment on above: Performed By: #### ROMEO LOPEZ MDIFF #### [facility] [address] [place] [address] #### PCAL #### [facility] [address]. [place], [place] Manual Differentialon 2021 Absolute Baso # 0.1 10*3/uL 0.0 - 0.2 10*3/uL [facility] Work Phone: 1) 22 Absolute Eos # 0.2 10*3/uL 0.0 - 0.5 10*3/uL [facility] Work Phone: 1) 22 Absolute Lymph # 1.7 10*3/uL 1.1 - 4.5 10*3/uL [facility] Work Phone: 1) 22 Absolute Graves # 0.6 10*3/uL 0.2 - 1.1 10*3/uL [facility] Work Phone: 1) 22 Absolute Neut # 6.2 10*3/uL 2.2 - 8.2 10*3/uL [facility] Work Phone: 1) 22 Bands 0 % 0 - 3 % [facility] Work Phone: 1) 22 Basophils/100 WBC (Bld) 1 % 0 - 2 % S [facility] Work Phone: 1) 22 Eosinophils/100 WBC (Bld) 2 % 1 - 6 % [facility] Work Phone: 1 22 Interpretation and review of laboratory results Abnormal [facility] Work Phone: 1) 22 Lymphocytes/100 WBC (Bld) 19 % Low 20 - 40 % [facility] Work Phone: 1) 22 Metamyelocytes 2 % Abnormal <1 [facility] Work Phone: 1) 22 Monocytes/100 WBC (Bld) 7 % 2 - 10 % [facility] Work Phone: 1) 22 Myelocytes 2 % Abnormal <1 [facility] Work Phone: 1) 22 Ovalocytes Slight [facility] Work Phone: 1) 22 Poikilocytes Slight [facility] Work Phone: 1 22 Polychromasia Slight [facility] Work Phone: 1) 22 RBC (Bld) [#/Vol] ABNORMAL [facility] Work Phone: 1) 22 Seg Neutrophils 67 % 40 - 80 % [facility] Work Phone: 1) 22 TOTAL CELLS COUNTED 100 [facility] Work Phone: 1 22 Test Performed by [facility], [address] [place], [place], [place] [id number] [place] [address] LAB [facility] Work Phone: 1 No Panel Informationon 05-06 Blood Culture, Routine No growth at 5 days. [facility] Test Performed by [facility], [address] [place], [place] [id number] [place] [address] LAB [facility] CBC with Auto Differentialon 05-05-2022 Hematocrit (Bld) [Volume fraction] 29.7 % Low 35.0 - 47.0 % [facility] Work Phone: 1 Hemoglobin (Bld) [Mass/Vol] 9.8 g/dL Low 11.7 - 16.0 g/dL [facility] Work Phone: 1 Interpretation and review of laboratory results Abnormal [facility] Work Phone: MCH (RBC) [Entitic mass] 29.6 pg 26.0 - 34.0 pg [facility] Work Phone: MCHC (RBC) [Mass/Vol] 33.2 % 32.0 - 36.0 % [facility] Work Phone: MCV (RBC) [Entitic vol] 89.2 fL 79.0 - 98.0 fL [facility] Work Phone: Platelet distribution width (Bld) [Ratio] 13.4 % 11.5 - 14.5 % [facility] Work Phone: Platelet mean volume (Bld) [Entitic vol] 6.9 fL Low 7.4 - 12.4 fL [facility] Work Phone: Comment on above: MPV is a calculated measurement using platelet volume ratio. Platelets (Bld) [#/Vol] 135 10*3/uL Low 140 - 440 10*3/uL [facility] Work Phone: RBC (Bld) [#/Vol] 3.32 10*6/uL Low 3.80 - 5.2 0 10*6/uL [facility] Work Phone: WBC (Bld) [#/Vol] 7.9 10*3/uL 3.6 - 10.7 10*3/uL [facility] Work Phone: Test Performed by [facility], [address], [place], [place] [address] [facility] Work Phone: Comp Panel with Mg Reflexon 05-05-2022 Calcium [Mass/Vol] 8.7 mg/dL Normal 8.4-10.4 [facility] Comment on above: Performed By: #### ROMEO LOPEZ MDIFF #### [facility] [address] [place] [address] #### PCAL #### [address] [place], [place] ALP [Catalytic activity/Vol] 77 U/L Normal 38-126 [facility] Comment on above: Performed By: #### ROMEO LOPEZ MDIFF #### [place] [address] [place] [address] #### PCAL #### [address] [address] [place], [place] ALT [Catalytic activity/Vol] 13 U/L Normal 0-34 [facility] Comment on above: Result Comment: The ALT test is performed by an updated assay method. Please note that the reference intervals have been changed and are now sex specific. Performed By: #### ROMEO LOPEZ MDIFF #### [facility] [address] [place] [address] #### PCAL #### [address] Anion gap [Moles/Vol] 4 mmol/L Normal 3-13 [facility] Comment on above: Performed By: #### ROMEO LOPEZ MDIFF #### [facility] [address] [place] [address] #### PCAL #### [address] AST [Catalytic activity/Vol] 16 U/L Normal 15-46 [facility] Comment on above: Performed By: #### ROMEO LOPEZ MDIFF #### [facility] [address] [place] [address] #### PCAL #### [address] [place] [address] Bilirubin [Mass/Vol] 0.4 mg/dL Normal 0.2-1.3 [facility] Comment on above: Performed By: #### ROMEO LOPEZ MDIFF #### [facility] [address] [place] [address] #### PCAL #### [facility] [address] [place] [address] CO2 [Moles/Vol] 31 mmol/L High 22-30 [facility] Comment on above: Performed By: #### ROMEO LOPEZ MDIFF #### [facility] [address] [place] [address] #### PCAL #### [address] [address] [place] [address] Creatinine [Mass/Vol] 1.30 mg/dL High 0.52-1.25 [facility] Comment on above: Performed By: #### ROMEO LOPEZ MDIFF #### [facility] [address] [place] [address] #### PCAL #### [address] [address] [place] [address] GFR/1.73 sq M.predicted among blacks MDRD (S/P/Bld) [Vol rate/Area] 50.0 mL/min/{1.73_m2} Abnormal >60 [facility] Comment on above: Performed By: #### ROMEO LOPEZ MDIFF #### [facility] [address] [place] [address] #### PCAL #### [address] [address] [place] [address] GFR/1.73 sq M.predicted among non-blacks MDRD (S/P/Bld) [Vol rate/Area] 43.1 mL/min/{1.73_m2} Abnormal >60 [facility] Comment on above: Result Comment: KDIG O guidelines provide the following GFR categories: Stage GFR(ml/min/1.73 m2) Terms G1 >=90 Normal or high G2 60-89 Mildly decreased* G3a 45-59 Mildly to moderately decreased G3b 30-44 Moderately to severely decreased G4 15-29 Severely decreased G5 <15 Kidney failure *Relative to young adult level. In the absence of evidence of kidney damage, neither GFR category G1 nor G2 fulfill the criteria for CKD. The CKD-EPI equation is validated in individuals 18 years of age and older. Currently the best equation for estimating glomerular filtration rate (GFR) from serum creatinine in children is the Bedside Martinez equation. It is less accurate in patients with extremes of muscle mass, restriction of dietary protein, ingestion of creatine, extra-renal metabolism of creatinine, or treatment with medications that affect renal tubular creatinine secretion. Performed By: #### ROMEO LOPEZ MDIFF #### [facility] [address] [place] [address] #### PCAL #### [address] [address] [place], [place] Glucose [Mass/Vol] 245 mg/dL High 70-100 [facility] Comment on above: Performed By: #### ROMEO LOPEZ MDIFF #### [facility] [address] [place] [address] #### PCAL #### [address] [address] [place], [place] Protein [Mass/Vol] 6.3 g/dL Normal 6.3-8.2 [facility] Comment on above: Performed By: #### ROMEO LOPEZ MDIFF #### [facility] [address] [place] [address] #### PCAL #### [address] [address] [place], [place] Urea nitrogen [Mass/Vol] 26 mg/dL High 9-20 [facility] Comment on above: Performed By: #### ROMEO LOPEZ MDIFF #### [facility] [address] [place] [address] #### PCAL #### [address] [address] [place], [place] Potassium [Moles/Vol] 4.6 mmol/L Normal 3.5-5.1 [facility] Comment on above: Performed By: #### ROMEO LOPEZ MDIFF #### [facility] [address] [place] [address] #### PCAL #### [address] [address] [place] [address] Albumin [Mass/Vol] 3.5 g/dL Normal 3.5-5.0 [facility] Comment on above: Performed By: #### ROMEO LOPEZ MDIFF #### [facility] [address] [place] [address] #### PCAL #### [address] [address] [place] [address] Chloride [Moles/Vol] 104 mmol/L Normal 98-107 [facility] Comment on above: Performed By: #### ROMEO LOPEZ MDIFF #### [facility] [address] [place] [address] #### PCAL #### [address] [address] [place] [address] Sodium [Moles/Vol] 139 mmol/L Normal 135-145 [facility] Comment on above: Performed By: #### ROMEO LOPEZ MDIFF #### [facility] [address] [place] [address] #### PCAL #### [address] [address] [place] [address] Comprehensive Metabolic Pane l w/ Reflex to MGon 05-05-2022 Albumin [Mass/Vol] 3.5 g/dL 3.5 - 5.0 g/dL [facility] Work Phone: ALP (Bld) [Catalytic activity/Vol] 77 U/L 38 - 126 U/L [facility] Work Phone: ALT [Catalytic activity/Vol] 13 U/L 0 - 34 U/L [facility] Work Phone: Comment on above: The ALT test is perf ormed by an updated assay method. Please note that the reference intervals have been changed and are now sex specific. Anion gap [Moles/Vol] 4 mmol/L 3 - 13 mmol/L [facility] Work Phone: [phone] AST [Catalytic activity/Vol] 16 U/L 15 - 46 U/L [facility] Work Phone: [phone] Bilirubin [Mass/Vol] 0.4 mg/dL 0.2 - 1 .3 mg/dL [facility] Work Phone: [phone] Calcium [Mass/Vol] 8.7 mg/dL 8.4 - 10. 4 mg/dL [facility] Work Phone: [phone] Chloride [Moles/Vol] 104 mmol/L 98 - 10 7 mmol/L [facility] Work Phone: [phone] CO2 [Moles/Vol] 31 mmol/L High 22 - 30 mmol/L [facility] Work Phone: [phone] Creatinine [Mass/Vol] 1.3 mg/dL High 0.52 - 1.25 mg/dL [facility] Work Phone: [phone] EGFR IF NonAfrican [place] 43.1 mL/min Abnormal >60 [facility] Work Phone: [phone] Comment on above: KDIGO guidelines pro vide the following GFR categories: Stage GFR(ml/min/1.73 m2) Terms G1 >=90 Normal or high G2 60-89 Mildly decreased* G3a 45-59 Mildly to moderately decreased G3b 30-44 Moderately to severely decreased G4 15-29 Severely decreased G5 <15 Kidney failure *Relative to young adult level. In the absence of evidence of kidney damage, neither GFR category G1 nor G2 fulfill the criteria for CKD. The CKD-EPI equation is validated in individuals 18 years of age and older. Currently the best equation for estimating glomerular filtration rate (GFR) from serum creatinine in children is the Bedside Martinez equation. It is less accurate in patients with extremes of muscle mass, restriction of dietary protein, ingestion of creatine, extra-renal metabolism of creatinine, or treatment with medications that affect renal tubular creatinine secretion. Free PSA/Total PSA [Mass fraction] 6.3 g/dL 6.3 - 8.2 g/dL [facility] Work Phone: [phone] GFR/1.73 sq M.predicted among blacks MDRD (S/P/Bld) [Vol rate/Area] 50.0 mL/min/{1.73_m2} Abnormal >60 [facility] Work Phone: [phone] Glucose [Mass/Vol] 245 mg/dL High 70 - 100 mg/dL [facility] Work Phone: [phone] Interpretation and review of laboratory results Abnormal [facility] Work Phone: [phone] Potassium [Moles/Vol] 4.6 mmol/L 3.5 - 5.1 mmol/L [facility] Work Phone: [phone] Sodium [Moles/Vol] 139 mmol/L 135 - 145 mmol/L [facility] Work Phone: [phone] Urea nitrogen (BldV) [Mass/Vol] 26 mg/dL High 9 - 20 mg/dL [facility] Work Phone: [phone] Test Performed by [facility], [address] [place], [place] [address] [facility] Work Phone: [phone] Hemogram w/ Autodiffon 05-05 Erythrocyte distribution width (RBC) [Ratio] 13.4 % Normal 11.5-14.5 [facility] Comment on above: Performed By: #### C ROMEO DEY MDIFF #### [facility] [address] [place] [address] #### PCAL #### [address] Hematocrit (Bld) [Volume fraction] 29.7 % Low 35.0-47.0 [facility] Comment on above: Performed By: #### ROEMO LOPEZ MDIFF #### [place] [address] [place] [address] #### PCAL #### [address] [address] Hemoglobin (Bld) [Mass/Vol] 9.8 g/dL Low 11.7-16.0 [facility] Comment on above: Performed By: #### ROMEO LOPEZ MDIFF #### [place] [address] [place] [address] #### PCAL #### [address] MCH (RBC) [Entitic mass] 29.6 pg Normal 26.0-34.0 [facility] Comment on above: Performed By: #### C ROMEO DEY MDIFF #### [facility] [address] [place] [address] #### PCAL #### [address] [address] [place], [place] MCHC 33.2 % Normal 32.0-36.0 [facility] Comment on above: Performed By: #### C ROMEO DEY MDIFF #### [facility] [address] [place] [address] #### PCAL #### [address] MCV (RBC) [Entitic vol] 89.2 fL Normal 79.0-98.0 [facility] Comment on above: Performed By: #### C ROMEO DEY MDIFF #### [facility] [address] [place] [address] #### PCAL #### [address] Platelet mean volume (Bld) [Entitic vol] 6.9 fL Low 7.4-12.4 [facility] Comment on above: Result Comment: MPV is a calculated measurement using platelet volume ratio. Performed By: #### C ROMEO DEY MDIFF #### [place] [address] [place] [address] #### PCAL #### [address] Platelets (Bld) [#/Vol] 135 10*3/uL Low 140-440 [facility] Comment on above: Performed By: #### C ROMEO DEY MDIFF #### [facility] [address] [place] [address] #### PCAL #### [address] RBC (Bld) [#/Vol] 3.32 10*6/uL Low 3.80-5.20 [facility] Comment on above: Performed By: #### ROMEO LOPEZ MDIFF #### [facility] [address] [place] [address] #### PCAL #### [address] WBC (Bld) [#/Vol] 7.9 10*3/uL Normal 3.6-10.7 [facility] Comment on above: Performed By: #### ROMEO LOPEZ MDIFF #### [place] [address] [place] [address] #### PCAL #### [address] Manual Diffon 05-05-2022 Abs Eosin Cnt 0.2 10*3/uL Normal 0.0-0.5 [facility] Comment on above: Performed By: #### ROMEO LOPEZ MDIFF #### [place] [address] [place] #### PCAL #### [address] Abs Lymph Cnt 1.6 10*3/uL Normal 1.1-4.5 [facility] Comment on above: Performed By: #### ROMEO LOPEZ MDIFF #### [address] [place] [place] [address] #### PCAL #### [address] [place], [place] Abs Monocyte Cnt 0.6 10*3/uL Normal 0.2-1.1 [facility] Comment on above: Performed By: #### ROMEO LOPEZ MDIFF #### [place] [address] [place] [address] #### PCAL #### [address] Abs Neutrophile Cnt 5.1 10*3/uL Normal 2.2-8.2 [facility] Comment on above: Performed By: #### C ROMEO DEY MDIFF #### [facility] [address] [place] [address] #### PCAL #### [facility] [address] [place] [address] Eosinophils 3 % Normal 1-6 [facility] Comment on above: Performed By: #### C ROMEO DEY MDIFF #### [facility] [address] [place] [address] #### PCAL #### [facility] [address] [place] [address] Lymphocytes 20 % Normal 20-40 [facility] Comment on above: Performed By: #### C ROMEO DEY MDIFF #### [facility] [address] [place] [address] #### PCAL #### [facility] [place] [address] Metamyelocytes 2 % Abnormal <1 [facility] Comment on above: Performed By: #### C ROMEO DEY MDIFF #### [facility] [address] [place] [address] #### PCAL #### [facility] [address] [place] [address] Monocytes 7 % Normal 2-10 [facility] Comment on above: Performed By: #### C ROMEO DEY MDIFF #### [facility] [address] [place] [address] #### PCAL #### [facility] [address] [place] [address] Myelocytes 3 % Abnormal <1 [facility] Comment on above: Performed By: #### C ROMEO DEY MDIFF #### [facility] [address] [place] [address] #### PCAL #### [facility] [address] [place], [place] [address] Ovalocytes Slight Normal [facility] Comment on above: Performed By: #### C ROMEO DEY MDIFF #### [facility] [address] [place] [address] #### PCAL #### [address] [place], [place] Poikilocytosis Slight Normal [facility] Comment on above: Performed By: #### C ROMEO DEY MDIFF #### [facility] [address] [place] [address] #### PCAL #### [address] [place], [place] Polychromasia Slight Normal [facility] Comment on above: Performed By: #### C ROMEO DEY MDIFF #### [place] [address] [place] [address] #### PCAL #### [address] [place], [place] RBC Morphology ABNORMAL Normal [facility] Comment on above: Performed By: #### C ROMEO DEY MDIFF #### [place] [address] [place] [address] #### PCAL #### [address] [place], [place] Seg Neutrophils 65 % Normal 40-80 [facility] Comment on above: Performed By: #### C ROMEO DEY MDIFF #### [place] [address] [place] [address] #### PCAL #### [address] [place], [place] Abs Baso Cnt 0.0 10*3/uL Normal 0.0-0.2 [facility] Comment on above: Performed By: #### C ROMEO DEY MDIFF #### [facility] [address] [place] [address] #### PCAL #### [address] [place], [place] Bands 0 % Normal 0-3 [facility] Comment on above: Performed By: #### C ROMEO DEY MDIFF #### [facility] [address] [place] [address] #### PCAL #### [facility] [address] [place] [address] Basophils 0 % Normal 0-2 [facility] Comment on above: Performed By: #### C MP3MROMEO, MDIFF #### [facility] [address] [place] [address] #### PCAL #### [facility] [address] [place] [address] Cells counted 100 Normal [facility] Comment on above: Performed By: #### C MP3M, ROMEO, MDIFF #### [facility] [address] [place] [address] #### PCAL #### [facility] [address] [place] [address] Manual Differentialon 2021 Absolute Baso # 0.0 10*3/uL 0.0 - 0.2 10*3/uL [facility] Work Phone: 22 Absolute Eos # 0.2 10*3/uL 0.0 - 0.5 10*3/uL [facility] Work Phone: 22 Absolute Lymph # 1.6 10*3/uL 1.1 - 4.5 10*3/uL [facility] Work Phone: 22 Absolute Graves # 0.6 10*3/uL 0.2 - 1.1 10*3/uL [facility] Work Phone: ) 22 Absolute Neut # 5.1 10*3/uL 2.2 - 8.2 10*3/uL [facility] Work Phone: 1) 22 Bands 0 % 0 - 3 % [facility] Work Phone: 22 Basophils/100 WBC (Bld) 0 % 0 - 2 % [facility] Work Phone: 22 Eosinophils/100 WBC (Bld) 3 % 1 - 6 % [facility] Work Phone: 1 22 Interpretation and review of laboratory results Abnormal [facility] Work Phone: 22 Lymphocytes/100 WBC (Bld) 20 % 20 - 40 % [facility] Work Phone: 1 22 Metamyelocytes 2 % Abnormal <1 [facility] Work Phone: 1 22 Monocytes/100 WBC (Bld) 7 % 2 - 10 % [facility] Work Phone: 1 22 Myelocytes 3 % Abnormal <1 [facility] Work Phone: 1 22 Ovalocytes Slight [facility] Work Phone: 1 22 Poikilocytes Slight [facility] Work Phone: 1 22 Polychromasia Slight [facility] Work Phone: 1 RBC (Bld) [#/Vol] ABNORMAL [facility] Work Phone: 1 Seg Neutrophils 65 % 40 - 80 % [facility] Work Phone: TOTAL CELLS COUNTED 100 [facility] Work Phone: 1 Test Performed by [facility], [address] [place] [id number] [place] [address] LAB [facility] Work Phone: CBC with Auto Differentialon 05-04-2022 Hematocrit (Bld) [Volume fraction] 27.5 % Low 35.0 - 47.0 % [facility] Work Phone: Hemoglobin (Bld) [Mass/Vol] 9.2 g/dL Low 11.7 - 16.0 g/dL [facility] Work Phone: 1 Interpretation and review of laboratory results Abnormal [facility] Work Phone: 1 MCH (RBC) [Entitic mass] 30.2 pg 26.0 - 34.0 pg [facility] Work Phone: MCHC (RBC) [Mass/Vol] 33.6 % 32.0 - 36.0 % [facility] Work Phone: 1 MCV (RBC) [Entitic vol] 89.8 fL 79.0 - 98.0 fL [facility] Work Phone: Platelet distribution width (Bld) [Ratio] 13.6 % 11.5 - 14.5 % [facility] Work Phone: Platelet mean volume (Bld) [Entitic vol] 7.6 fL 7.4 - 12.4 fL [employer] Work Phone: [phone] Comment on above: MPV is a calculated measurement using platelet volume ratio. Platelets (Bld) [#/Vol] 90 10*3/uL Low 140 - 440 10*3/uL [employer] Work Phone: [phone] RBC (Bld) [#/Vol] 3.06 10*6/uL Low 3.80 - 5.2 0 10*6/uL [employer] Work Phone: [phone] WBC (Bld) [#/Vol] 6.1 10*3/uL 3.6 - 10.7 10*3/uL [employer] Work Phone: [phone] Test Performed by [facility], [address] [place], [place] [address] [facility] [employer] Work Phone: [phone] Comp Panel with Mg Reflexon 05-04-2022 ALP [Catalytic activity/Vol] 71 U/L Normal 38-126 [facility] Comment on above: Performed By: #### C ROMEO DEY MDIFF #### [facility] [address] [facility] [address] #### PCAL #### [address] [address] ALT [Catalytic activity/Vol] 11 U/L Normal 0-34 [facility] Comment on above: Result Comment: The ALT test is performed by an updated assay method. Please note that the reference intervals have been changed and are now sex specific. Performed By: #### C ROMEO DEY MDIFF #### [facility] [address] [place] [address] #### PCAL #### [address] [address] Calcium [Mass/Vol] 8.4 mg/dL Normal 8.4-10.4 [facility] Comment on above: Performed By: #### C DINA3ROMEO Rome MDIFF #### [facility] [address] [place] [address] #### PCAL #### [address], [place] Glucose [Mass/Vol] 268 mg/dL High 70-100 [facility] Comment on above: Performed By: #### ROMEO LOPEZ MDIFF #### [facility] [address] [place] [address] #### PCAL #### [address] [facility], [place] Urea nitrogen [Mass/Vol] 30 mg/dL High 9-20 [facility] Comment on above: Performed By: #### C ROMEO DEY MDIFF #### [place] [address] [place] [address] #### PCAL #### [address] [facility], [place] Anion gap [Moles/Vol] 5 mmol/L Normal 3-13 [facility] Comment on above: Performed By: #### ROMEO LOPEZ MDIFF #### [address] [place] [address] [place] [address] #### PCAL #### [address] [facility], [place] AST [Catalytic activity/Vol] 14 U/L Low 15-46 [facility] Comment on above: Performed By: #### ROMEO LOPEZ MDIFF #### [place] [address] [place] [address] #### PCAL #### [address] [facility], [place] Bilirubin [Mass/Vol] 0.3 mg/dL Normal 0.2-1.3 [facility] Comment on above: Performed By: #### ROMEO LOPEZ MDIFF #### [facility] [address] [place] [address] #### PCAL #### [address] [facility], [place] CO2 [Moles/Vol] 28 mmol/L Normal 22-30 [facility] Comment on above: Performed By: #### ROMEO LOPEZ MDIFF #### [facility] [address] [place] [address] #### PCAL #### [address] [address] Creatinine [Mass/Vol] 1.20 mg/dL Normal 0.52-1.25 [facility] Comment on above: Performed By: #### C ROMEO DEY MDIFF #### [facility] [address] [place] [address] #### PCAL #### [address] [address] GFR/1.73 sq M.predicted among blacks MDRD (S/P/Bld) [Vol rate/Area] 55.0 mL/min/{1.73_m2} Abnormal >60 [facility] Comment on above: Performed By: #### C ROMEO DEY MDIFF #### [facility] [address] [place] [address] #### PCAL #### [address] [address] GFR/1.73 sq M.predicted among non-blacks MDRD (S/P/Bld) [Vol rate/Area] 47.5 mL/min/{1.73_m2} Abnormal >60 [facility] Comment on above: Result Comment: KDIG O guidelines provide the following GFR categories: Stage GFR(ml/min/1.73 m2) Terms G1 >=90 Normal or high G2 60-89 Mildly decreased* G3a 45-59 Mildly to moderately decreased G3b 30-44 Moderately to severely decreased G4 15-29 Severely decreased G5 <15 Kidney failure *Relative to young adult level. In the absence of evidence of kidney damage, neither GFR category G1 nor G2 fulfill the criteria for CKD. The CKD-EPI equation is validated in individuals 18 years of age and older. Currently the best equation for estimating glomerular filtration rate (GFR) from serum creatinine in children is the Bedside Martinez equation. It is less accurate in patients with extremes of muscle mass, restriction of dietary protein, ingestion of creatine, extra-renal metabolism of creatinine, or treatment with medications that affect renal tubular creatinine secretion. Performed By: #### C ROMEO DEY MDIFF #### [facility] [address] [place] [address] #### PCAL #### [facility] [address] [facility] [place] [address] Protein [Mass/Vol] 5.8 g/dL Low 6.3-8.2 [facility] Comment on above: Performed By: #### C ROMEO DEY MDIFF #### [facility] [address] [place] [address] #### PCAL #### [address] [facility] [place] [address] Potassium [Moles/Vol] 4.7 mmol/L Normal 3.5-5.1 [facility] Comment on above: Performed By: #### C ROMEO DEY MDIFF #### [facility] [address] [place] [address] #### PCAL #### [address] [facility] [place] [address] Sodium [Moles/Vol] 137 mmol/L Normal 135-145 [facility] Comment on above: Performed By: #### C ROMEO DEY MDIFF #### [facility] [address] [place] [address] #### PCAL #### [address] [facility] [place] [address] Albumin [Mass/Vol] 3.1 g/dL Low 3.5-5.0 [facility] Comment on above: Performed By: #### C ROMEO DEY MDIFF #### [facility] [address] [place] [address] #### PCAL #### [address] [facility] [place] [address] Chloride [Moles/Vol] 104 mmol/L Normal 98-107 [facility] Comment on above: Performed By: #### C ROMEO DEY MDIFF #### [facility] [address] [place] [address] #### PCAL #### [facility] [address] [place] [address] Comprehensive Metabolic Pane l w/ Reflex to MGon 05-04-2022 Albumin [Mass/Vol] 3.1 g/dL Low 3.5 - 5.0 g/dL [employer] Work Phone: [phone] ALP (Bld) [Catalytic activity/Vol] 71 U/L 38 - 126 U/L [facility] Work Phone: [phone] ALT [Catalytic activity/Vol] 11 U/L 0 - 34 U/L [employer] Work Phone: [phone] Comment on above: The ALT test is perf ormed by an updated assay method. Please note that the reference intervals have been changed and are now sex specific. Anion gap [Moles/Vol] 5 mmol/L 3 - 13 mmol/L [employer] Work Phone: [phone] AST [Catalytic activity/Vol] 14 U/L Low 15 - 46 U/L [employer] Work Phone: [phone] Bilirubin [Mass/Vol] 0.3 mg/dL 0.2 - 1 .3 mg/dL [employer] Work Phone: [phone] Calcium [Mass/Vol] 8.4 mg/dL 8.4 - 10. 4 mg/dL [employer] Work Phone: [phone] Chloride [Moles/Vol] 104 mmol/L 98 - 10 7 mmol/L [employer] Work Phone: [phone] CO2 [Moles/Vol] 28 mmol/L 22 - 30 mmol/L [employer] Work Phone: [phone] Creatinine [Mass/Vol] 1.2 mg/dL 0.52 - 1.25 mg/dL [employer] Work Phone: [phone] EGFR IF NonAfrican [place] 47.5 mL/min Abnormal >60 [employer] Work Phone: Comment on above: KDIGO guidelines pro vide the following GFR categories: Stage GFR(ml/min/1.73 m2) Terms G1 >=90 Normal or high G2 60-89 Mildly decreased* G3a 45-59 Mildly to moderately decreased G3b 30-44 Moderately to severely decreased G4 15-29 Severely decreased G5 <15 Kidney failure *Relative to young adult level. In the absence of evidence of kidney damage, neither GFR category G1 nor G2 fulfill the criteria for CKD. The CKD-EPI equation is validated in individuals 18 years of age and older. Currently the best equation for estimating glomerular filtration rate (GFR) from serum creatinine in children is the Bedside Martinez equation. It is less accurate in patients with extremes of muscle mass, restriction of dietary protein, ingestion of creatine, extra-renal metabolism of creatinine, or treatment with medications that affect renal tubular creatinine secretion. Free PSA/Total PSA [Mass fraction] 5.8 g/dL Low 6.3 - 8.2 g/dL [facility] Work Phone: [phone] GFR/1.73 sq M.predicted among blacks MDRD (S/P/Bld) [Vol rate/Area] 55.0 mL/min/{1.73_m2} Abnormal >60 [facility] Work Phone: [phone] Glucose [Mass/Vol] 268 mg/dL High 70 - 100 mg/dL [facility] Work Phone: [phone] Interpretation and review of laboratory results Abnormal [facility] Work Phone: [phone] Potassium [Moles/Vol] 4.7 mmol/L 3.5 - 5.1 mmol/L [facility] Work Phone: [phone] Sodium [Moles/Vol] 137 mmol/L 135 - 145 mmol/L [facility] Work Phone: [phone] Urea nitrogen (BldV) [Mass/Vol] 30 mg/dL High 9 - 20 mg/dL [facility] Work Phone: [phone] Test Performed by [facility], [address] [place], [place] [address] [facility] Work Phone: Hemogram w/ Autodiffon 05-04 Erythrocyte distribution width (RBC) [Ratio] 13.6 % Normal 11.5-14.5 [facility] Comment on above: Performed By: #### C ROMEO DEY MDIFF #### [facility] [address] [place] [address] #### PCAL #### [facility] [address] [place] [address] Hematocrit (Bld) [Volume fraction] 27.5 % Low 35.0-47.0 [facility] Comment on above: Performed By: #### C ROMEO DEY MDIFF #### [facility] [address] [place] [address] #### PCAL #### [address] [address] [place], [place] Hemoglobin (Bld) [Mass/Vol] 9.2 g/dL Low 11.7-16.0 [facility] Comment on above: Performed By: #### C ROMEO DEY MDIFF #### [place] [address] [place] [address] #### PCAL #### [address] MCH (RBC) [Entitic mass] 30.2 pg Normal 26.0-34.0 [facility] Comment on above: Performed By: #### C ROMEO DEY MDIFF #### [place] [address] [place] [address] #### PCAL #### [address] [address] [place], [place] MCHC 33.6 % Normal 32.0-36.0 [facility] Comment on above: Performed By: #### C ROMEO DEY MDIFF #### [place] [address] [place] [address] #### PCAL #### [address] MCV (RBC) [Entitic vol] 89.8 fL Normal 79.0-98.0 [facility] Comment on above: Performed By: #### C ROMEO DEY MDIFF #### [place] [address] [place] [address] #### PCAL #### [address] Platelet mean volume (Bld) [Entitic vol] 7.6 fL Normal 7.4-12.4 [facility] Comment on above: Result Comment: MPV is a calculated measurement using platelet volume ratio. Performed By: #### ROMEO LOPEZ MDIFF #### [facility] [address] [place] [address] #### PCAL #### [address] [place], [place] Platelets (Bld) [#/Vol] 90 10*3/uL Low 140-440 [facility] Comment on above: Performed By: #### C ROMEO DEY MDIFF #### [facility] [address] [place] #### PCAL #### [address] RBC (Bld) [#/Vol] 3.06 10*6/uL Low 3.80-5.20 [facility] Comment on above: Performed By: #### ROMEO LOPEZ MDIFF #### [place] [address] [place] #### PCAL #### [address] WBC (Bld) [#/Vol] 6.1 10*3/uL Normal 3.6-10.7 [facility] Comment on above: Performed By: #### ROMEO LOPEZ MDIFF #### [place] [address] [place] [address] #### PCAL #### [address] Manual Diffon 05-04-2022 Abs Baso Cnt 0.1 10*3/uL Normal 0.0-0.2 [facility] Comment on above: Performed By: #### ROMEO LOPEZ MDIFF #### [facility] [address] [place] [address] #### PCAL #### [address] Abs Eosin Cnt 0.4 10*3/uL Normal 0.0-0.5 [facility] Comment on above: Performed By: #### C ROMEO DEY, MDIFF #### [facility] [address] [place] [address] #### PCAL #### [address] [place], [place] Abs Lymph Cnt 1.8 10*3/uL Normal 1.1-4.5 [facility] Comment on above: Performed By: #### C ROMEO DEY MDIFF #### [facility] [address] [place] [address] #### PCAL #### [address] [place], [place] Abs Monocyte Cnt 0.2 10*3/uL Normal 0.2-1.1 [facility] Comment on above: Performed By: #### C ROMEO DEY MDIFF #### [place] [address] [place], [place] #### PCAL #### [address] [place], [place] Abs Neutrophile Cnt 3.4 10*3/uL Normal 2.2-8.2 [facility] Comment on above: Performed By: #### ROMEO LOPEZ MDIFF #### [facility] [address] [place] [address] #### PCAL #### [address] [place], [place] Anisocytosis Slight Normal [facility] Comment on above: Performed By: #### ROMEO LOPEZ MDIFF #### [facility] [address] [place] [address] #### PCAL #### [address] Basophils 2 % Normal 0-2 [facility] Comment on above: Performed By: #### ROMEO LOPEZ MDIFF #### [facility] [address] [place] [address] #### PCAL #### [address] [place], [place] James Cells Slight Normal [facility] Comment on above: Performed By: #### C ROMEO DEY MDIFF #### [facility] [address] [place] [address] #### PCAL #### [facility] [address] [place] [address] Eosinophils 7 % High 1-6 [facility] Comment on above: Performed By: #### C ROMEO DEY MDIFF #### [facility] [address] [place] [address] #### PCAL #### [facility] [address] [place] [address] Hypochromia Slight Normal [facility] Comment on above: Performed By: #### C ROMEO DEY MDIFF #### [facility] [address] [place] [address] #### PCAL #### [facility] [address] [place], [place] Lymphocytes 30 % Normal 20-40 [facility] Comment on above: Performed By: #### C ROMEO DEY MDIFF #### [facility] [address] [place] [address] #### PCAL #### [facility] [address] [place], [place] Metamyelocytes 1 % Abnormal <1 [facility] Comment on above: Performed By: #### C ROMEO DEY MDIFF #### [facility] [address] [place] [address] #### PCAL #### [facility] [address] [place] [address] Monocytes 3 % Normal 2-10 [facility] Comment on above: Performed By: #### C ROMEO DEY MDIFF #### [facility] [address] [place] [address] #### PCAL #### [facility] [address] [place], [place] Myelocytes 2 % Abnormal <1 [facility] Comment on above: Performed By: #### C ROMEO DEY MDIFF #### [facility] [address] [place] [address] #### PCAL #### [facility] [address] [place], [place] Ovalocytes Slight Normal [facility] Comment on above: Performed By: #### C ROMEO DEY MDIFF #### [facility] [address] [place] [address] #### PCAL #### [address] [address] [place], [place] Poikilocytosis Slight Normal [facility] Comment on above: Performed By: #### C ROMEO DEY MDIFF #### [facility] [address] [place] [address] #### PCAL #### [address] [address] [place], [place] Polychromasia Slight Normal [facility] Comment on above: Performed By: #### C ROMEO DEY MDIFF #### [facility] [address] [place] [address] #### PCAL #### [address] [address] [place], [place] RBC Morphology ABNORMAL Normal [facility] Comment on above: Performed By: #### C ROMEO DEY MDIFF #### [facility] [address] [place] [address] #### PCAL #### [address] [address] [place], [place] Seg Neutrophils 55 % Normal 40-80 [facility] Comment on above: Performed By: #### C ROMEO DEY MDIFF #### [facility] [address] [place] [address] #### PCAL #### [address] [address] [place], [place] Bands 0 % Normal 0-3 [facility] Comment on above: Performed By: #### C ROMEO DEY MDIFF #### [facility] [address] [place] [address] #### PCAL #### [employer] [address] [place] [address] Cells counted 100 Normal [employer] [facility] Comment on above: Performed By: #### C MP3Travis, HEMELLEN, MDIFF #### [employer] [facility] [address] [place] [address] #### PCAL #### [employer] [facility] [address] [place] [address] Manual Differentialon 2021 Absolute Baso # 0.1 10*3/uL 0.0 - 0.2 10*3/uL [facility] Work Phone: 1 22 Absolute Eos # 0.4 10*3/uL 0.0 - 0.5 10*3/uL [facility] Work Phone: 1 22 Absolute Lymph # 1.8 10*3/uL 1.1 - 4.5 10*3/uL [facility] Work Phone: 1 22 Absolute Graves # 0.2 10*3/uL 0.2 - 1.1 10*3/uL [facility] Work Phone: 1) 22 Absolute Neut # 3.4 10*3/uL 2.2 - 8.2 10*3/uL [facility] Work Phone: 1 22 Anisocytosis Slight [facility] Work Phone: 22 Bands 0 % 0 - 3 % [facility] Work Phone: 1 22 Basophils/100 WBC (Bld) 2 % 0 - 2 % [facility] Work Phone: 22 [place] Cells Slight [facility] Work Phone: 1 22 Eosinophils/100 WBC (Bld) 7 % High 1 - 6 % [facility] Work Phone: 22 Hypochromia Slight [facility] Work Phone: 22 Interpretation and review of laboratory results Abnormal [facility] Work Phone: 22 Lymphocytes/100 WBC (Bld) 30 % 20 - 40 % [facility] Work Phone: 1 22 Metamyelocytes 1 % Abnormal <1 [facility] Work Phone: 1 22 Monocytes/100 WBC (Bld) 3 % 2 - 10 % [facility] Work Phone: 1 22 Myelocytes 2 % Abnormal <1 [facility] Work Phone: 1 Ovalocytes Slight [facility] Work Phone: 1 22 Poikilocytes Slight [facility] Work Phone: 1 22 Polychromasia Slight [facility] Work Phone: 1 RBC (Bld) [#/Vol] ABNORMAL [facility] Work Phone: 1 Seg Neutrophils 55 % 40 - 80 % [facility] Work Phone: 1 TOTAL CELLS COUNTED 100 [facility] Work Phone: 1 Test Performed by [employer], [address], [place] [id number] [place] [address] LAB [facility] Work Phone: 1 Procalcitoninon 05-04-2022 Procalcitonin 6.49 ng/mL High 0.00-0.09 [facility] Comment on above: Performed By: #### L ACTS #### [facility] [address] [place] [address] Interpretation See Below [facility] Work Phone: Comment on above: PCT <0.50 = Low risk of severe sepsis and/or septic shock. PCT >2.00 = High risk of severe sepsis and/or septic shock. Interpretation and review of laboratory results Abnormal [facility] Work Phone: 1 Procalcitonin 6.49 ng/mL High 0.00 - 0.09 ng/mL [facility] Work Phone: 1 Test Performed by linkedü [facility], [address] [place] [address] [facility] Work Phone: [phone] CBC with Auto Differentialon 05-03-2022 MCHC (RBC) [Mass/Vol] 33.2 % 32.0 - 36.0 % [facility] Work Phone: [phone] Platelet distribution width (Bld) [Ratio] 13.8 % 11.5 - 14.5 % [facility] Work Phone: [phone] CULTURE URINEon 05-03-2022 CULTURE URINE CULTURE URINE --> Status: F Normal urogenital krys present. 1 Organism Escherichia coli >100,000 CFU/ml 1 Organism Antibiotic Result Intrp Ampicillin(ASHU) <= 2 S Cefazolin([facility]U) <= 4 S Ceftriaxone([facility]U) <= 1 S Cefepime([facility]U) <= 1 S Aztreonam([facility]) <= 1 S Amoxicillin/Clavulanic Acid([facility]) <= 2 S Ampicillin/Sulbactam([place] C) <= 2 S Pip/Tazobactam([facility]U) <= 4 S Meropenem([facility]U) <= 0.25 S Ciprofloxacin([facility]) <= 0.25 S Trimeth/Sulfa([facility]U) >= 320 R Nitrofurantoin([facility]) <= 16 S Gentamicin([facility]) <= 1 S Amikacin([facility]) <= 2 S [facility] Comment on above: Performed By: #### L ACTS #### [facility] [address] [place] [address] Comp Panel with Mg Reflexon 05-03-2022 Calcium [Mass/Vol] 8.1 mg/dL Low 8.4-10.4 [facility] Comment on above: Performed By: #### L ACTS #### [facility] [address] [place] [address] ALP [Catalytic activity/Vol] 78 U/L Normal 38-126 [facility] Comment on above: Performed By: #### L ACTS #### [facility] [address] [place] [address] ALT [Catalytic activity/Vol] 12 U/L Normal 0-34 [facility] Comment on above: Result Comment: The ALT test is performed by an updated assay method. Please note that the reference intervals have been changed and are now sex specific. Performed By: #### L ACTS #### [facility] [address] [place] [address] Anion gap [Moles/Vol] 3 mmol/L Normal 3-13 [facility] Comment on above: Performed By: #### L ACTS #### [facility] [address] [place] [address] AST [Catalytic activity/Vol] 15 U/L Normal 15-46 [facility] Comment on above: Performed By: #### L ACTS #### [facility] [address] [place] [address] Bilirubin [Mass/Vol] 0.3 mg/dL Normal 0.2-1.3 [facility] Comment on above: Performed By: #### L ACTS #### [facility] [address] [place] [address] CO2 [Moles/Vol] 30 mmol/L Normal 22-30 [facility] Comment on above: Performed By: #### L ACTS #### [facility] [address] [place] [address] Creatinine [Mass/Vol] 1.51 mg/dL High 0.52-1.25 [facility] Comment on above: Performed By: #### L ACTS #### [facility] [address] [place] [address] GFR/1.73 sq M.predicted among blacks MDRD (S/P/Bld) [Vol rate/Area] 41.7 mL/min/{1.73_m2} Abnormal >60 [facility] Comment on above: Performed By: #### L ACTS #### [facility] [address] [place] [address] GFR/1.73 sq M.predicted among non-blacks MDRD (S/P/Bld) [Vol rate/Area] 36.0 mL/min/{1.73_m2} Abnormal >60 [facility] Comment on above: Result Comment: KDIG O guidelines provide the following GFR categories: Stage GFR(ml/min/1.73 m2) Terms G1 >=90 Normal or high G2 60-89 Mildly decreased* G3a 45-59 Mildly to moderately decreased G3b 30-44 Moderately to severely decreased G4 15-29 Severely decreased G5 <15 Kidney failure *Relative to young adult level. In the absence of evidence of kidney damage, neither GFR category G1 nor G2 fulfill the criteria for CKD. The CKD-EPI equation is validated in individuals 18 years of age and older. Currently the best equation for estimating glomerular filtration rate (GFR) from serum creatinine in children is the Bedside Martinez equation. It is less accurate in patients with extremes of muscle mass, restriction of dietary protein, ingestion of creatine, extra-renal metabolism of creatinine, or treatment with medications that affect renal tubular creatinine secretion. Performed By: #### L ACTS #### [facility] [address] [place] [address] Glucose [Mass/Vol] 255 mg/dL High 70-100 [facility] Comment on above: Performed By: #### L ACTS #### [facility] [address] [place] [address] Protein [Mass/Vol] 5.7 g/dL Low 6.3-8.2 [facility] Comment on above: Performed By: #### L ACTS #### [facility] [address] [place] [address] Urea nitrogen [Mass/Vol] 33 mg/dL High 9-20 [facility] Comment on above: Performed By: #### L ACTS #### [facility] [address] [place] [address] Potassium [Moles/Vol] 4.5 mmol/L Normal 3.5-5.1 [facility] Comment on above: Performed By: #### L ACTS #### [facility] [address] [place] [address] Albumin [Mass/Vol] 3.2 g/dL Low 3.5-5.0 [facility] Comment on above: Performed By: #### L ACTS #### [facility] [address] [place] [address] Chloride [Moles/Vol] 103 mmol/L Normal 98-107 [facility] [employer] [facility] Comment on above: Performed By: #### L ACTS #### [facility] [employer] [facility] [address] [place] [address] Sodium [Moles/Vol] 136 mmol/L Normal 135-145 [facility] [employer] [facility] Comment on above: Performed By: #### L ACTS #### [facility] [employer] [facility] [address] [place] [place] [address] Comprehensive Metabolic Pane l w/ Reflex to MGon 05-03-2022 Albumin [Mass/Vol] 3.2 g/dL Low 3.5 - 5.0 g/dL [employer] Work Phone: [phone] ALP (Bld) [Catalytic activity/Vol] 78 U/L 38 - 126 U/L [employer] Work Phone: [phone] ALT [Catalytic activity/Vol] 12 U/L 0 - 34 U/L [employer] Work Phone: [phone] Comment on above: The ALT test is perf ormed by an updated assay method. Please note that the reference intervals have been changed and are now sex specific. Anion gap [Moles/Vol] 3 mmol/L 3 - 13 mmol/L [employer] Work Phone: [phone] AST [Catalytic activity/Vol] 15 U/L 15 - 46 U/L [facility] Work Phone: [phone] Bilirubin [Mass/Vol] 0.3 mg/dL 0.2 - 1 .3 mg/dL [employer] Work Phone: [phone] Calcium [Mass/Vol] 8.1 mg/dL Low 8.4 - 10. 4 mg/dL [employer] Work Phone: [phone] Chloride [Moles/Vol] 103 mmol/L 98 - 10 7 mmol/L [employer] Work Phone: [phone] CO2 [Moles/Vol] 30 mmol/L 22 - 30 mmol/L [employer] Work Phone: [phone] Creatinine [Mass/Vol] 1.51 mg/dL High 0.52 - 1.25 mg/dL [employer] Work Phone: [phone] EGFR IF NonAfrican [place] 36.0 mL/min Abnormal >60 [employer] Work Phone: Comment on above: KDIGO guidelines pro vide the following GFR categories: Stage GFR(ml/min/1.73 m2) Terms G1 >=90 Normal or high G2 60-89 Mildly decreased* G3a 45-59 Mildly to moderately decreased G3b 30-44 Moderately to severely decreased G4 15-29 Severely decreased G5 <15 Kidney failure *Relative to young adult level. In the absence of evidence of kidney damage, neither GFR category G1 nor G2 fulfill the criteria for CKD. The CKD-EPI equation is validated in individuals 18 years of age and older. Currently the best equation for estimating glomerular filtration rate (GFR) from serum creatinine in children is the Bedside Martinez equation. It is less accurate in patients with extremes of muscle mass, restriction of dietary protein, ingestion of creatine, extra-renal metabolism of creatinine, or treatment with medications that affect renal tubular creatinine secretion. Free PSA/Total PSA [Mass fraction] 5.7 g/dL Low 6.3 - 8.2 g/dL [facility] Work Phone: [phone] GFR/1.73 sq M.predicted among blacks MDRD (S/P/Bld) [Vol rate/Area] 41.7 mL/min/{1.73_m2} Abnormal >60 [facility] Work Phone: Glucose [Mass/Vol] 255 mg/dL High 70 - 100 mg/dL [facility] Work Phone: Interpretation and review of laboratory results Abnormal [facility] Work Phone: Potassium [Moles/Vol] 4.5 mmol/L 3.5 - 5.1 mmol/L [facility] Work Phone: Sodium [Moles/Vol] 136 mmol/L 135 - 145 mmol/L [facility] Work Phone: Urea nitrogen (BldV) [Mass/Vol] 33 mg/dL High 9 - 20 mg/dL [facility] Work Phone: Test Performed by [facility], [address] [place], [place] [address] [facility] Work Phone: Culture, Urineon 05-03-2022 Bacteria identified Cx Nom (U) Normal urogenital krys present. Abnormal [facility] Bacteria identified Cx Nom (U) Escherichia coli Abnormal [facility] Bacteria identified Cx Nom (U) >100,000 CFU/ml [facility] Interpretation and review of laboratory results Abnormal [facility] Test Performed by [facility], [address] [place] [id number] [place] [address] LAB [facility] Glucose,Bedsideon 05-03-2022 Glucose [Mass/Vol] 332 mg/dL High 70-100 [facility] Comment on above: Result Comment: Test performed by glucose meter. Results may be 10%-15% lower than serum/plasma values. (CLIA ID [id number]) Performed By: #### C ROMEO DEY MDIFF #### [facility] [address] [place] [address] #### PCAL #### [address] [address] Glucose [Mass/Vol] 273 mg/dL High 70-100 [facility] Comment on above: Result Comment: Test performed by glucose meter. Results may be 10%-15% lower than serum/plasma values. (CLIA ID [id number]) Performed By: #### L ACTS #### [facility] [address] [place] [address] Glucose [Mass/Vol] 256 mg/dL High 70-100 [facility] Comment on above: Result Comment: Test performed by glucose meter. Results may be 10%-15% lower than serum/plasma values. (CLIA ID [id number]) Performed By: #### C ROMEO DEY MDIFF #### [facility] [address] [place] [address] #### PCAL #### [address] [address] Hemogram w/ Autodiffon 05-03 Erythrocyte distribution width (RBC) [Ratio] 13.8 % Normal 11.5-14.5 [facility] Comment on above: Performed By: #### L ACTS #### [facility] [address] [place] [address] Hematocrit (Bld) [Volume fraction] 25.6 % Low 35.0-47.0 [facility] Work Phone: [phone] Comment on above: Performed By: #### L ACTS #### [facility] [address] [place] [address] Hemoglobin (Bld) [Mass/Vol] 8.5 g/dL Low 11.7-16.0 [facility] Work Phone: [phone] Comment on above: Performed By: #### L ACTS #### [facility] [address] [place] [address] MCH (RBC) [Entitic mass] 29.7 pg Normal 26.0-34.0 [facility] Work Phone: [phone] Comment on above: Performed By: #### L ACTS #### [facility] [address] [place] [address] MCHC 33.2 % Normal 32.0-36.0 [facility] Comment on above: Performed By: #### L ACTS #### [facility] [address] [place] [address] MCV (RBC) [Entitic vol] 89.5 fL Normal 79.0-98.0 [facility] Work Phone: [phone] Comment on above: Performed By: #### L ACTS #### [facility] [address] [place] [address] Platelet mean volume (Bld) [Entitic vol] 7.1 fL Low 7.4-12.4 [facility] Work Phone: Comment on above: MPV is a calculated measurement using platelet volume ratio. Result Comment: MPV is a calculated measurement using platelet volume ratio. Performed By: #### L ACTS #### [facility] [address] [place] [address] Platelets (Bld) [#/Vol] 80 10*3/uL Low 140-440 [facility] Work Phone: Comment on above: Performed By: #### L ACTS #### [facility] [address] [place] [address] RBC (Bld) [#/Vol] 2.86 10*6/uL Low 3.80-5.20 [facility] Work Phone: [phone] Comment on above: Performed By: #### L ACTS #### [facility] [address] [place] [address] WBC (Bld) [#/Vol] 6.3 10*3/uL Normal 3.6-10.7 [facility] Work Phone: Comment on above: Performed By: #### L ACTS #### [facility] [address] [place] [address] Manual Diffon 05-03-2022 Abs Eosin Cnt 0.3 10*3/uL Normal 0.0-0.5 [facility] Comment on above: Performed By: #### L ACTS #### [facility] [address] [place] [address] Abs Lymph Cnt 0.8 10*3/uL Low 1.1-4.5 [facility] Comment on above: Performed By: #### L ACTS #### [facility] [address] [place] [address] Abs Monocyte Cnt 0.3 10*3/uL Normal 0.2-1.1 [facility] Comment on above: Performed By: #### L ACTS #### [facility] [address] [place] [address] Abs Neutrophile Cnt 4.7 10*3/uL Normal 2.2-8.2 [facility] Comment on above: Performed By: #### L ACTS #### [facility] [address] [place] [address] Anisocytosis Slight Normal [facility] Comment on above: Performed By: #### L ACTS #### [facility] [address] [place] [address] Eosinophils 5 % Normal 1-6 [facility] Comment on above: Performed By: #### L ACTS #### [facility] [address] [place] [address] Lymphocytes 13 % Low 20-40 [facility] Comment on above: Performed By: #### L ACTS #### [facility] [address] [place] [address] Metamyelocytes 1 % Abnormal <1 [facility] Comment on above: Performed By: #### L ACTS #### [facility] [address] [place] [address] Monocytes 5 % Normal 2-10 [facility] Comment on above: Performed By: #### L ACTS #### [facility] [address] [place] [address] Myelocytes 1 % Abnormal <1 [facility] Comment on above: Performed By: #### L ACTS #### [facility] [address] [place] [address] Ovalocytes Slight Normal [facility] Comment on above: Performed By: #### L ACTS #### [facility] [address] [place] [address] Poikilocytosis Slight Normal [facility] Comment on above: Performed By: #### L ACTS #### [facility] [address] [place] [address] Polychromasia Slight Normal [facility] Comment on above: Performed By: #### L ACTS #### [facility] [address] [place] [address] RBC Morphology ABNORMAL Normal [facility] Comment on above: Performed By: #### L ACTS #### [facility] [address] [place] [address] Seg Neutrophils 75 % Normal 40-80 [facility] Comment on above: Performed By: #### L ACTS #### [facility] [address] [place] [address] Abs Baso Cnt 0.0 10*3/uL Normal 0.0-0.2 [facility] Comment on above: Performed By: #### L ACTS #### [facility] [address] [place] [address] Bands 0 % Normal 0-3 [facility] Comment on above: Performed By: #### L ACTS #### [facility] [address] [place] [address] Basophils 0 % Normal 0-2 [facility] Comment on above: Performed By: #### L ACTS #### [facility] [address] [place] [address] Cells counted 100 Normal [facility] Comment on above: Performed By: #### L ACTS #### [facility] [address] [place] [address] Manual Differentialon 2021 Absolute Baso # 0.0 10*3/uL 0.0 - 0.2 10*3/uL [facility] Work Phone: [phone] Absolute Eos # 0.3 10*3/uL 0.0 - 0.5 10*3/uL [facility] Work Phone: [phone] Absolute Lymph # 0.8 10*3/uL Low 1.1 - 4.5 10*3/uL [facility] Work Phone: [phone] Absolute Graves # 0.3 10*3/uL 0.2 - 1.1 10*3/uL [facility] Work Phone: [phone] Absolute Neut # 4.7 10*3/uL 2.2 - 8.2 10*3/uL [facility] Work Phone: [phone] Anisocytosis Slight [facility] Work Phone: [phone] Bands 0 % 0 - 3 % [facility] Work Phone: 22 Basophils/100 WBC (Bld) 0 % 0 - 2 % [facility] Work Phone: [phone] Eosinophils/100 WBC (Bld) 5 % 1 - 6 % [facility] Work Phone: [phone] Interpretation and review of laboratory results Abnormal [facility] Work Phone: [phone] Lymphocytes/100 WBC (Bld) 13 % Low 20 - 40 % [facility] Work Phone: 22 Metamyelocytes 1 % Abnormal <1 [facility] Work Phone: 22 Monocytes/100 WBC (Bld) 5 % 2 - 10 % [facility] Work Phone: 22 Myelocytes 1 % Abnormal <1 [facility] Work Phone: 22 Ovalocytes Slight [facility] Work Phone: 22 Poikilocytes Slight [facility] Work Phone: 22 Polychromasia Slight [facility] Work Phone: [phone] RBC (Bld) [#/Vol] ABNORMAL [facility] Work Phone: [phone] Seg Neutrophils 75 % 40 - 80 % [facility] Work Phone: [phone] TOTAL CELLS COUNTED 100 [facility] Work Phone: [phone] Test Performed by [facility], [address] LAB [facility] Work Phone: [phone] Panel Informationon 05-03 Interpretation and review of laboratory results Abnormal [facility] Work Phone: [phone] Test Performed by [facility], [address] LAB [facility] Work Phone: [phone] POCT Glucoseon 05-03-2022 Glucose [Mass/Vol] 332 mg/dL High 70 - 100 mg/dL [facility] Work Phone: [phone] Comment on above: Test performed by gl ucose meter. Results may be 10%-15% lower than serum/plasma values. (CLIA ID [id number]) Test Performed by [facility], [address] LAB Glucose [Mass/Vol] 256 mg/dL High 70 - 100 mg/dL [facility] Work Phone: [phone] Comment on above: Test performed by gl ucose meter. Results may be 10%-15% lower than serum/plasma values. (CLIA ID [id number]) Interpretation and review of laboratory results Abnormal [facility] Work Phone: [phone] Test Performed by [facility], [address] LAB [facility] Work Phone: [phone] POCT GlucoseOrdered By: Nelson Beckham on 05-03-2022 Glucose [Mass/Vol] 273 mg/dL High 70 - 100 mg/dL [facility] Work Phone: [phone] Comment on above: Test performed by gl ucose meter. Results may be 10%-15% lower than serum/plasma values. (CLIA ID [id number]) Interpretation and review of laboratory results Abnormal [facility] Work Phone: [phone] [facility] Work Phone: [phone] Procalcitoninon 05-03-2022 Procalcitonin 12.30 ng/mL High 0.00-0.09 [facility] Comment on above: Performed By: #### L ACTS #### [facility] [address] [place] [address] Interpretation See Below Normal [facility] Work Phone: [phone] Comment on above: PCT <0.50 = Low risk of severe sepsis and/or septic shock. PCT >2.00 = High risk of severe sepsis and/or septic shock. Result Comment: PCT <0.50 = Low risk of severe sepsis and/or septic shock. PCT >2.00 = High risk of severe sepsis and/or septic shock. Performed By: #### L ACTS #### [address] [place] [address] Interpretation and review of laboratory results Abnormal [facility] Work Phone: [phone] Procalcitonin 12.3 ng/mL High 0.00 - 0.09 ng/mL [facility] Work Phone: 1 Test Performed by [facility], [address] [place] [address] [facility] Work Phone: [phone] Vancomycin Troughon 05-03-20 Vancomycin Trough 9.9 ug/mL Low 15.0-20.0 [facility] Comment on above: Result Comment: . Performed By: #### C ROMEO DEY MDIFF #### [address] [place] [address] #### PCAL #### [address] [address] CBC with Auto Differentialon 05-02-2022 Hematocrit (Bld) [Volume fraction] 26.8 % Low 35.0 - 47.0 % [facility] Work Phone: [phone] Hemoglobin (Bld) [Mass/Vol] 8.9 g/dL Low 11.7 - 16.0 g/dL [facility] Work Phone: [phone] Interpretation and review of laboratory results Abnormal [facility] Work Phone: MCH (RBC) [Entitic mass] 29.8 pg 26.0 - 34.0 pg [employer] Work Phone: 1 MCHC (RBC) [Mass/Vol] 33.1 % 32.0 - 36.0 % [employer] Work Phone: 1 MCV (RBC) [Entitic vol] 90.0 fL 79.0 - 98.0 fL [employer] Work Phone: 1 Platelet distribution width (Bld) [Ratio] 13.9 % 11.5 - 14.5 % [employer] Work Phone: Platelet mean volume (Bld) [Entitic vol] 7.4 fL 7.4 - 12.4 fL [employer] Work Phone: 1 Comment on above: MPV is a calculated measurement using platelet volume ratio. Platelets (Bld) [#/Vol] 71 10*3/uL Low 140 - 440 10*3/uL [employer] Work Phone: 1 RBC (Bld) [#/Vol] 2.97 10*6/uL Low 3.80 - 5.2 0 10*6/uL [employer] Work Phone: 1 WBC (Bld) [#/Vol] 7.5 10*3/uL 3.6 - 10.7 10*3/uL [employer] Work Phone: 1 Test Performed by [facility], [address] [place], [place] [address] [facility] Work Phone: Comp Panel with Mg Reflexon 05-02-2022 ALP [Catalytic activity/Vol] 70 U/L Normal 38-126 [facility] Comment on above: Performed By: #### L ACTS #### [facility] [address] [place] [address] ALT [Catalytic activity/Vol] 11 U/L Normal 0-34 [facility] Comment on above: Result Comment: The ALT test is performed by an updated assay method. Please note that the reference intervals have been changed and are now sex specific. Performed By: #### L ACTS #### [facility] [address] [place] [address] Calcium [Mass/Vol] 7.9 mg/dL Low 8.4-10.4 [facility] Comment on above: Performed By: #### L ACTS #### [facility] [address] [place] [address] Glucose [Mass/Vol] 233 mg/dL High 70-100 [facility] Comment on above: Performed By: #### L ACTS #### [facility] [address] [place] [address] Protein [Mass/Vol] 5.8 g/dL Low 6.3-8.2 [facility] Comment on above: Performed By: #### L ACTS #### [facility] [address] [place] [address] Urea nitrogen [Mass/Vol] 43 mg/dL High 9-20 [facility] Comment on above: Performed By: #### L ACTS #### [facility] [address] [place] [address] Anion gap [Moles/Vol] 4 mmol/L Normal 3-13 [facility] Comment on above: Performed By: #### L ACTS #### [facility] [address] [place] [address] AST [Catalytic activity/Vol] 16 U/L Normal 15-46 [facility] Comment on above: Performed By: #### L ACTS #### [facility] [address] [place] [address] Bilirubin [Mass/Vol] 0.4 mg/dL Normal 0.2-1.3 [facility] Comment on above: Performed By: #### L ACTS #### [facility] [address] [place] [address] CO2 [Moles/Vol] 30 mmol/L Normal 22-30 [facility] Comment on above: Performed By: #### L ACTS #### [facility] [address] [place] [address] Creatinine [Mass/Vol] 1.39 mg/dL High 0.52-1.25 [facility] Comment on above: Performed By: #### L ACTS #### [facility] [address] [place] [address] GFR/1.73 sq M.predicted among blacks MDRD (S/P/Bld) [Vol rate/Area] 46.1 mL/min/{1.73_m2} Abnormal >60 [facility] Comment on above: Performed By: #### L ACTS #### [facility] [address] [place] [address] GFR/1.73 sq M.predicted among non-blacks MDRD (S/P/Bld) [Vol rate/Area] 39.8 mL/min/{1.73_m2} Abnormal >60 [facility] Comment on above: Result Comment: KDIG O guidelines provide the following GFR categories: Stage GFR(ml/min/1.73 m2) Terms G1 >=90 Normal or high G2 60-89 Mildly decreased* G3a 45-59 Mildly to moderately decreased G3b 30-44 Moderately to severely decreased G4 15-29 Severely decreased G5 <15 Kidney failure *Relative to young adult level. In the absence of evidence of kidney damage, neither GFR category G1 nor G2 fulfill the criteria for CKD. The CKD-EPI equation is validated in individuals 18 years of age and older. Currently the best equation for estimating glomerular filtration rate (GFR) from serum creatinine in children is the Bedside Martinez equation. It is less accurate in patients with extremes of muscle mass, restriction of dietary protein, ingestion of creatine, extra-renal metabolism of creatinine, or treatment with medications that affect renal tubular creatinine secretion. Performed By: #### L ACTS #### [facility] [address] [place] [address] Chloride [Moles/Vol] 104 mmol/L Normal 98-107 [facility] Comment on above: Performed By: #### L ACTS #### [facility] [address] [place] [address] Potassium [Moles/Vol] 4.3 mmol/L Normal 3.5-5.1 [facility] Comment on above: Performed By: #### L ACTS #### [facility] [address] [place] [address] Sodium [Moles/Vol] 138 mmol/L Normal 135-145 [facility] Comment on above: Performed By: #### L ACTS #### [facility] [address] [place] [address] Albumin [Mass/Vol] 3.2 g/dL Low 3.5-5.0 [facility] Comment on above: Performed By: #### L ACTS #### [facility] [address] [place] [address] Comprehensive Metabolic Pane l w/ Reflex to MGon 05-02-2022 Albumin [Mass/Vol] 3.2 g/dL Low 3.5 - 5.0 g/dL [employer] Work Phone: [phone] ALP (Bld) [Catalytic activity/Vol] 70 U/L 38 - 126 U/L [employer] Work Phone: [phone] ALT [Catalytic activity/Vol] 11 U/L 0 - 34 U/L [facility] Work Phone: [phone] Comment on above: The ALT test is perf ormed by an updated assay method. Please note that the reference intervals have been changed and are now sex specific. Anion gap [Moles/Vol] 4 mmol/L 3 - 13 mmol/L [employer] Work Phone: [phone] AST [Catalytic activity/Vol] 16 U/L 15 - 46 U/L [employer] Work Phone: [phone] Bilirubin [Mass/Vol] 0.4 mg/dL 0.2 - 1 .3 mg/dL [employer] Work Phone: [phone] Calcium [Mass/Vol] 7.9 mg/dL Low 8.4 - 10. 4 mg/dL [employer] Work Phone: [phone] Chloride [Moles/Vol] 104 mmol/L 98 - 10 7 mmol/L [employer] Work Phone: [phone] CO2 [Moles/Vol] 30 mmol/L 22 - 30 mmol/L [employer] Work Phone: [phone] Creatinine [Mass/Vol] 1.39 mg/dL High 0.52 - 1.25 mg/dL [employer] Work Phone: [phone] EGFR IF NonAfrican [place] 39.8 mL/min Abnormal >60 [employer] Work Phone: [phone] Comment on above: KDIGO guidelines pro vide the following GFR categories: Stage GFR(ml/min/1.73 m2) Terms G1 >=90 Normal or high G2 60-89 Mildly decreased* G3a 45-59 Mildly to moderately decreased G3b 30-44 Moderately to severely decreased G4 15-29 Severely decreased G5 <15 Kidney failure *Relative to young adult level. In the absence of evidence of kidney damage, neither GFR category G1 nor G2 fulfill the criteria for CKD. The CKD-EPI equation is validated in individuals 18 years of age and older. Currently the best equation for estimating glomerular filtration rate (GFR) from serum creatinine in children is the Bedside Martinez equation. It is less accurate in patients with extremes of muscle mass, restriction of dietary protein, ingestion of creatine, extra-renal metabolism of creatinine, or treatment with medications that affect renal tubular creatinine secretion. Free PSA/Total PSA [Mass fraction] 5.8 g/dL Low 6.3 - 8.2 g/dL [facility] Work Phone: GFR/1.73 sq M.predicted among blacks MDRD (S/P/Bld) [Vol rate/Area] 46.1 mL/min/{1.73_m2} Abnormal >60 [facility] Work Phone: Glucose [Mass/Vol] 233 mg/dL High 70 - 100 mg/dL [facility] Work Phone: Interpretation and review of laboratory results Abnormal [facility] Work Phone: Potassium [Moles/Vol] 4.3 mmol/L 3.5 - 5.1 mmol/L [facility] Work Phone: Sodium [Moles/Vol] 138 mmol/L 135 - 145 mmol/L [facility] Work Phone: Urea nitrogen (BldV) [Mass/Vol] 43 mg/dL High 9 - 20 mg/dL [facility] Work Phone: Test Performed by [facility], [address], [place] [address] [facility] Work Phone: Glucose,Bedsideon 05-02-2022 Glucose [Mass/Vol] 239 mg/dL High 70-100 [facility] Comment on above: Result Comment: Test performed by glucose meter. Results may be 10%-15% lower than serum/plasma values. (CLIA ID [id number]) Performed By: #### B GLU #### [facility] [address] [place] [address] Glucose [Mass/Vol] 126 mg/dL High 70-100 [facility] Comment on above: Result Comment: Test performed by glucose meter. Results may be 10%-15% lower than serum/plasma values. (CLIA ID [id number]) Performed By: #### C MP3M, HEMDF, MDIFF #### [facility] [address] [place] [address] #### PCAL #### [facility] [address] [address] Glucose [Mass/Vol] 268 mg/dL High 70-100 [facility] Comment on above: Result Comment: Test performed by glucose meter. Results may be 10%-15% lower than serum/plasma values. (CLIA ID [id number]) Performed By: #### C MP3M, HEMDF, MDIFF #### [facility] [address] [place] [address] #### PCAL #### [facility] [address] [address] Glucose [Mass/Vol] 245 mg/dL High 70-100 [facility] Comment on above: Result Comment: Test performed by glucose meter. Results may be 10%-15% lower than serum/plasma values. (CLIA ID [id number]) Performed By: #### C MP3M, HEMDF, MDIFF #### [facility] [address] [place] [address] #### PCAL #### [facility] [address] [address] Glucose [Mass/Vol] 213 mg/dL High 70-100 [facility] Comment on above: Result Comment: Test performed by glucose meter. Results may be 10%-15% lower than serum/plasma values. (CLIA ID [id number]) Performed By: #### L ACTS #### [facility] [address] [place] [address] Hemogram w/ Autodiffon 05-02 Erythrocyte distribution width (RBC) [Ratio] 13.9 % Normal 11.5-14.5 [facility] Comment on above: Performed By: #### L ACTS #### [facility] [address] [place] [address] Hematocrit (Bld) [Volume fraction] 26.8 % Low 35.0-47.0 [facility] Comment on above: Performed By: #### L ACTS #### [facility] [address] [place] [address] Hemoglobin (Bld) [Mass/Vol] 8.9 g/dL Low 11.7-16.0 [facility] Comment on above: Performed By: #### L ACTS #### [facility] [address] [place] [address] MCH (RBC) [Entitic mass] 29.8 pg Normal 26.0-34.0 [facility] Comment on above: Performed By: #### L ACTS #### [facility] [address] [place] [address] MCHC 33.1 % Normal 32.0-36.0 [facility] Comment on above: Performed By: #### L ACTS #### [facility] [address] [place] [address] MCV (RBC) [Entitic vol] 90.0 fL Normal 79.0-98.0 [facility] Comment on above: Performed By: #### L ACTS #### [facility] [address] [place] [address] Platelet mean volume (Bld) [Entitic vol] 7.4 fL Normal 7.4-12.4 [facility] Comment on above: Result Comment: MPV is a calculated measurement using platelet volume ratio. Performed By: #### L ACTS #### [facility] [address] [place] [address] Platelets (Bld) [#/Vol] 71 10*3/uL Low 140-440 [facility] Comment on above: Performed By: #### L ACTS #### [facility] [address] [place] [address] RBC (Bld) [#/Vol] 2.97 10*6/uL Low 3.80-5.20 [facility] Comment on above: Performed By: #### L ACTS #### [facility] [address] [place] [address] WBC (Bld) [#/Vol] 7.5 10*3/uL Normal 3.6-10.7 [facility] Comment on above: Performed By: #### L ACTS #### [facility] [address] [place] [address] Manual Diffon 05-02-2022 Abs Baso Cnt 0.1 10*3/uL Normal 0.0-0.2 [facility] Comment on above: Performed By: #### L ACTS #### [facility] [address] [place] [address] Abs Eosin Cnt 0.4 10*3/uL Normal 0.0-0.5 [facility] Comment on above: Performed By: #### L ACTS #### [facility] [address] [place] [address] Abs Lymph Cnt 0.9 10*3/uL Low 1.1-4.5 [facility] Comment on above: Performed By: #### L ACTS #### [facility] [address] [place] [address] Abs Monocyte Cnt 0.3 10*3/uL Normal 0.2-1.1 [facility] Comment on above: Performed By: #### L ACTS #### [facility] [address] [place] [address] Abs Neutrophile Cnt 5.8 10*3/uL Normal 2.2-8.2 [facility] Comment on above: Performed By: #### L ACTS #### [facility] [address] [place] [address] Anisocytosis Slight Normal [facility] Comment on above: Performed By: #### L ACTS #### [facility] [address] [place] [address] Bands 0 % Normal 0-3 [facility] Comment on above: Performed By: #### L ACTS #### [facility] [address] [place] [address] Basophillic Stippling Slight Normal [facility] Comment on above: Performed By: #### L ACTS #### [facility] [address] [place] [address] Basophils 1 % Normal 0-2 [facility] Comment on above: Performed By: #### L ACTS #### [facility] [address] [place] [address] Cells counted 100 Normal [facility] Comment on above: Performed By: #### L ACTS #### [facility] [address] [place] [address] Eosinophils 5 % Normal 1-6 [facility] Comment on above: Performed By: #### L ACTS #### [facility] [address] [place] [address] Hypochromia Slight Normal [facility] Comment on above: Performed By: #### L ACTS #### [facility] [address] [place] [address] Lymphocytes 12 % Low 20-40 [facility] Comment on above: Performed By: #### L ACTS #### [facility] [address] [place] [address] Metamyelocytes 1 % Abnormal <1 [facility] Comment on above: Performed By: #### L ACTS #### [facility] [address] [place] [address] Monocytes 4 % Normal 2-10 [facility] Comment on above: Performed By: #### L ACTS #### [facility] [address] [place] [address] Ovalocytes Slight Normal [facility] Comment on above: Performed By: #### L ACTS #### [facility] [address] [place] [address] Poikilocytosis Slight Normal [facility] Comment on above: Performed By: #### L ACTS #### [facility] [address] [place] [address] Polychromasia Slight Normal [facility] Comment on above: Performed By: #### L ACTS #### [facility] [address] [place] [address] RBC Morphology ABNORMAL Normal [facility] Comment on above: Performed By: #### L ACTS #### [facility] [address] [place] [address] Seg Neutrophils 77 % Normal 40-80 [facility] Comment on above: Performed By: #### L ACTS #### [facility] [address] [place] [address] Tear Drop Forms Slight Normal [facility] Comment on above: Performed By: #### L ACTS #### [facility] [address] [place] [address] Manual Differentialon 2021 Absolute Baso # 0.1 10*3/uL 0.0 - 0.2 10*3/uL [facility] Work Phone: 1) 22 Absolute Eos # 0.4 10*3/uL 0.0 - 0.5 10*3/uL [facility] Work Phone: 1) 22 Absolute Lymph # 0.9 10*3/uL Low 1.1 - 4.5 10*3/uL [facility] Work Phone: 1) 22 Absolute Graves # 0.3 10*3/uL 0.2 - 1.1 10*3/uL [facility] Work Phone: 1) 22 Absolute Neut # 5.8 10*3/uL 2.2 - 8.2 10*3/uL [facility] Work Phone: 1) 22 Anisocytosis Slight [facility] Work Phone: 1) 22 Bands 0 % 0 - 3 % [facility] Work Phone: 22 Basophilic Stippling Slight [facility] Work Phone: 1) 22 Basophils/100 WBC (Bld) 1 % 0 - 2 % [facility] Work Phone: ) 22 Eosinophils/100 WBC (Bld) 5 % 1 - 6 % [facility] Work Phone: 1) 22 Hypochromia Slight [facility] Work Phone: 1 22 Interpretation and review of laboratory results Abnormal [facility] Work Phone: 1 22 Lymphocytes/100 WBC (Bld) 12 % Low 20 - 40 % [facility] Work Phone: 1 22 Metamyelocytes 1 % Abnormal <1 [facility] Work Phone: 1) 22 Monocytes/100 WBC (Bld) 4 % 2 - 10 % [facility] Work Phone: 22 Ovalocytes Slight [facility] Work Phone: 1 22 Poikilocytes Slight [facility] Work Phone: 1 22 Polychromasia Slight [facility] Work Phone: 1 RBC (Bld) [#/Vol] ABNORMAL [facility] Work Phone: 1 Seg Neutrophils 77 % 40 - 80 % [facility] Work Phone: 1 Tear Drop Cells Slight [facility] Work Phone: 1 22 TOTAL CELLS COUNTED 100 [facility] Work Phone: 1 Test Performed by [facility], [address] LAB [facility] Work Phone: 1 POCT Glucoseon 05-02-2022 Glucose [Mass/Vol] 239 mg/dL High 70 - 100 mg/dL [facility] Work Phone: 1 Comment on above: Test performed by gl ucose meter. Results may be 10%-15% lower than serum/plasma values. (CLIA ID [id number]) Interpretation and review of laboratory results Abnormal [facility] Work Phone: 1 Test Performed by [facility], [address] LAB [facility] Work Phone: 1 Glucose [Mass/Vol] 126 mg/dL High 70 - 100 mg/dL [facility] Work Phone: 1 Comment on above: Test performed by gl ucose meter. Results may be 10%-15% lower than serum/plasma values. (CLIA ID [id number]) Interpretation and review of laboratory results Abnormal [facility] Work Phone: 1 22 Test Performed by [facility], [address] LAB [facility] Work Phone: 1 Glucose [Mass/Vol] 268 mg/dL High 70 - 100 mg/dL [facility] Work Phone: 1 Comment on above: Test performed by gl ucose meter. Results may be 10%-15% lower than serum/plasma values. (CLIA ID [id number]) Interpretation and review of laboratory results Abnormal [facility] Work Phone: Test Performed by [facility], [address] LAB [facility] Work Phone: Test Performed by [facility], [address] LAB Glucose [Mass/Vol] 213 mg/dL High 70 - 100 mg/dL [facility] Work Phone: Comment on above: Test performed by gl ucose meter. Results may be 10%-15% lower than serum/plasma values. (CLIA ID [id number]) Interpretation and review of laboratory results Abnormal [facility] Work Phone: Test Performed by [facility], [address] LAB [facility] Work Phone: POCT GlucoseOrdered By: Angie Love on 05-02-2022 Glucose [Mass/Vol] 245 mg/dL High 70 - 100 mg/dL [facility] Work Phone: Comment on above: Test performed by gl ucose meter. Results may be 10%-15% lower than serum/plasma values. (CLIA ID [id number]) Interpretation and review of laboratory results Abnormal [facility] Work Phone: [facility] Work Phone: Procalcitoninon 05-02-2022 Interpretation See Below Normal [facility] Comment on above: Result Comment: PCT <0.50 = Low risk of severe sepsis and/or septic shock. PCT >2.00 = High risk of severe sepsis and/or septic shock. Performed By: #### L ACTS #### [facility] [address] [place] [address] US RETROPERITONEAL COMPLETEo n 05-02-2022 Patient Name: KIMBERLY PATEL Ultrasound ACCESSION EXAM DATE/TIME PROCEDURE ORDERING PROVIDER [id number] 05/02/2022 10:21 EDT US Retroperitoneal [id number] JONES Complete CPT code 43190 Reason For Exam (US Retroperitoneal Complete) darrell Report Examination: Renal ultrasound Clinical Indication: darrell Comparison: CT 10/02/2021 and ultrasound 10/03/2021 Findings: Multiplanar grayscale sonographic images were obtained through the kidneys and bladder. The right kidney measures 9.8 x 7.3 x 5.7 cm. Trace perinephric free fluid/edema. No renal cysts. No solid renal parenchymal lesion, hydronephrosis, or shadowing renal calculus. Normal echotexture. The left kidney measures 10.8 x 5.6 x 6.5 cm. No renal cysts. No solid renal parenchymal lesion, hydronephrosis, or shadowing renal calculus. Normal echotexture. Ultrasound images through the bladder demonstrate no gross evidence of bladder wall thickening. Impression: Trace nonspecific right perinephric free fluid/edema. Otherwise unremarkable examination of the kidneys and bladder. Report Dictated on --- Final --- Dictating Physician: MD VAZ JASON Signed Date and Time: 05/02/2022 12:34 pm Signed by: MD VAZ JASON Transcribed Date and Time: 05/02/2022 12:35 [facility] Edwin Vaz MD - 05/02/2022 Patient Name: KIMBERLY PATEL Ultrasound ACCESSION EXAM DATE/TIME PROCEDURE ORDERING PROVIDER [id number] 05/02/2022 10:21 EDT US Retroperitoneal Moon ELKINS HEMA Complete CPT code 71506 Reason For Exam (US Retroperitoneal Complete) darrell Report Examination: Renal ultrasound Clinical Indication: darrell Comparison: CT 10/02/2021 and ultrasound 10/03/2021 Findings: Multiplanar grayscale sonographic images were obtained through the kidneys and bladder. The right kidney measures 9.8 x 7.3 x 5.7 cm. Trace perinephric free fluid/edema. No renal cysts. No solid renal parenchymal lesion, hydronephrosis, or shadowing renal calculus. Normal echotexture. The left kidney measures 10.8 x 5.6 x 6.5 cm. No renal cysts. No solid renal parenchymal lesion, hydronephrosis, or shadowing renal calculus. Normal echotexture. Ultrasound images through the bladder demonstrate no gross evidence of bladder wall thickening. Impression: Trace nonspecific right perinephric free fluid/edema. Otherwise unremarkable examination of the kidneys and bladder. Report Dictated on --- Final --- Dictating Physician: MD VAZ JASON Signed Date and Time: 05/02/2022 12:34 pm Signed by: MD VAZ JASON Transcribed Date and Time: 05/02/2022 12:35 [facility] Work Phone: US RETROPERITONEAL COMPLETEO rdered By: Edwin Vaz on 05-02-2022 [facility] Work Phone: US Retroperitoneal Completeo n 05-02-2022 US Retroperitoneal Complete Patient Name: KIMBERLY PATEL Ultrasound ACCESSION EXAM DATE/TIME PROCEDURE ORDERING PROVIDER [id number] 05/02/2022 10:21 EDT US Retroperitoneal [id number] -MACK HEMA Complete CPT code 06795 Reason For Exam (US Retroperitoneal Complete) darrell Report Examination: Renal ultrasound Clinical Indication: darrell Comparison: CT 10/02/2021 and ultrasound 10/03/2021 Findings: Multiplanar grayscale sonographic images were obtained through the kidneys and bladder. The right kidney measures 9.8 x 7.3 x 5.7 cm. Trace perinephric free fluid/edema. No renal cysts. No solid renal parenchymal lesion, hydronephrosis, or shadowing renal calculus. Normal echotexture. The left kidney measures 10.8 x 5.6 x 6.5 cm. No renal cysts. No solid renal parenchymal lesion, hydronephrosis, or shadowing renal calculus. Normal echotexture. Ultrasound images through the bladder demonstrate no gross evidence of bladder wall thickening. Impression: Trace nonspecific right perinephric free fluid/edema. Otherwise unremarkable examination of the kidneys and bladder. Report Dictated on Final Dictating Physician: MD VAZ JASON Signed Date and Time: 05/02/2022 12:34 pm Signed by: MD VAZ JASON Transcribed Date and Time: 05/02/2022 12:35 Normal [facility] Vancomycin Level, Troughon 0 05-02-2022 Interpretation and review of laboratory results Abnormal [facility] Vancomycin Tr 9.9 ug/mL Low 15.0 - 20.0 ug/mL [facility] Comment on above: . Test Performed by [facility], [address], [place], [place] [id number] [place] [address] LAB [facility] CBC with Auto Differentialon 05-01-2022 Absolute Baso # 0.0 10*3/uL 0.0 - 0.2 10*3/uL [facility] Work Phone: 1 22 Absolute Neut # 12.3 10*3/uL High 1.8 - 7.0 10*3/uL [facility] Work Phone: 22 Basophils/100 WBC (Bld) 0.1 % 0.0 - 2.0 % [facility] Work Phone: 22 Eosinophils (Bld) [#/Vol] 0.0 10*3/uL 0.0 - 0.5 10*3/uL [facility] Work Phone: 22 Eosinophils/100 WBC (Bld) 0.2 % Low 1.0 - 6.0 % [facility] Work Phone: 22 Granulocytes/100 WBC (Bld) 89.5 % High 40.0 - 80.0 % [facility] Work Phone: Hematocrit (Bld) [Volume fraction] 27.7 % Low 35.0 - 47.0 % [facility] Work Phone: 22 Hemoglobin (Bld) [Mass/Vol] 9.0 g/dL Low 11.7 - 16.0 g/dL [facility] Work Phone: Interpretation and review of laboratory results Abnormal [facility] Work Phone: 22 Lymphocytes (Bld) [#/Vol] 0.8 10*3/uL Low 1.0 - 4.3 10*3/uL [employer] Work Phone: 22 Lymphocytes/100 WBC (Bld) 5.5 % Low 20.0 - 40.0 % [facility] Work Phone: [phone] MCH (RBC) [Entitic mass] 29.3 pg 26.0 - 34.0 pg [employer] Work Phone: MCHC (RBC) [Mass/Vol] 32.4 % 32.0 - 36.0 % [employer] Work Phone: 1 MCV (RBC) [Entitic vol] 90.5 fL 79.0 - 98.0 fL [employer] Work Phone: Monocytes (Bld) [#/Vol] 0.6 10*3/uL 0.0 - 0.8 10*3/uL [employer] Work Phone: Monocytes/100 WBC (Bld) 4.7 % 2.0 - 10.0 % [facility] Phone: Platelet distribution width (Bld) [Ratio] 13.6 % 11.5 - 14.5 % [facility] Phone: Platelet mean volume (Bld) [Entitic vol] 7.0 fL Low 7.4 - 12.4 fL [employer] Work Phone: Comment on above: MPV is a calculated measurement using platelet volume ratio. Platelets (Bld) [#/Vol] 100 10*3/uL Low 140 - 440 10*3/uL [employer] Work Phone: RBC (Bld) [#/Vol] 3.06 10*6/uL Low 3.80 - 5.2 0 10*6/uL [facility] Phone: WBC (Bld) [#/Vol] 13.7 10*3/uL High 3.6 - 10.7 10*3/uL [employer] Work Phone: Test Performed by [facility], [address], [place], [place] [id number] [place] [address] LAB [facility] Work Phone: Comp Panel with Mg Reflexon 05-01-2022 Anion gap [Moles/Vol] 6 mmol/L Normal 3-13 [facility] Comment on above: Performed By: #### C MP3M, HEMDF, MDIFF #### [facility] [address] [place] [address] #### PCAL #### [place] [address] [address] [facility] [place] ALT [Catalytic activity/Vol] 14 U/L Normal 0-34 [facility] Comment on above: Result Comment: The ALT test is performed by an updated assay method. Please note that the reference intervals have been changed and are now sex specific. Performed By: #### C ROMEO DEY MDIFF #### [facility] [address] [place] [address] #### PCAL #### [place] [address] [address] [facility] [place] Calcium [Mass/Vol] 7.8 mg/dL Low 8.4-10.4 [facility] Comment on above: Performed By: #### C ROMEO DEY MDIFF #### [place] [address] [place] [address] #### PCAL #### [place] [address] [address] [facility] [place] Glucose [Mass/Vol] 282 mg/dL High 70-100 [facility] [facility] Comment on above: Performed By: #### ROMEO LOPEZ MDIFF #### [place] [address] [place] [address] #### PCAL #### [place] [address] [address] [facility] [place] Urea nitrogen [Mass/Vol] 44 mg/dL High 9-20 [facility] Comment on above: Performed By: #### C ROMEO DEY MDIFF #### [place] [address] [place] [address] #### PCAL #### [place] [address] [facility] [place] ALP [Catalytic activity/Vol] 73 U/L Normal 38-126 [facility] Comment on above: Performed By: #### C ROMEO DEY MDIFF #### [place] [address] [place] [address] #### PCAL #### [place] [address] [place], [place] AST [Catalytic activity/Vol] 19 U/L Normal 15-46 [facility] Comment on above: Performed By: #### C ROMEO DEY MDIFF #### [facility] [address] [place] [address] #### PCAL #### [place] [address] [place], [place] Bilirubin [Mass/Vol] 0.5 mg/dL Normal 0.2-1.3 [facility] Comment on above: Performed By: #### C ROMEO DEY MDIFF #### [place] [address] [place] [address] #### PCAL #### [address] CO2 [Moles/Vol] 30 mmol/L Normal 22-30 [facility] Comment on above: Performed By: #### C ROMEO DEY MDIFF #### [place] [address] [place] [address] #### PCAL #### [place] [address] [place], [place] Creatinine [Mass/Vol] 1.77 mg/dL High 0.52-1.25 [facility] Comment on above: Performed By: #### C ROMEO DEY MDIFF #### [place] [address] [place] [address] #### PCAL #### [place] [address] [place], [place] GFR/1.73 sq M.predicted among blacks MDRD (S/P/Bld) [Vol rate/Area] 34.4 mL/min/{1.73_m2} Abnormal >60 [facility] Comment on above: Performed By: #### C ROMEO DEY MDIFF #### [place] [address] [place] [address] #### PCAL #### [place] [address] [place] [address] GFR/1.73 sq M.predicted among non-blacks MDRD (S/P/Bld) [Vol rate/Area] 29.7 mL/min/{1.73_m2} Abnormal >60 [facility] Comment on above: Result Comment: KDIG O guidelines provide the following GFR categories: Stage GFR(ml/min/1.73 m2) Terms G1 >=90 Normal or high G2 60-89 Mildly decreased* G3a 45-59 Mildly to moderately decreased G3b 30-44 Moderately to severely decreased G4 15-29 Severely decreased G5 <15 Kidney failure *Relative to young adult level. In the absence of evidence of kidney damage, neither GFR category G1 nor G2 fulfill the criteria for CKD. The CKD-EPI equation is validated in individuals 18 years of age and older. Currently the best equation for estimating glomerular filtration rate (GFR) from serum creatinine in children is the Bedside Martinez equation. It is less accurate in patients with extremes of muscle mass, restriction of dietary protein, ingestion of creatine, extra-renal metabolism of creatinine, or treatment with medications that affect renal tubular creatinine secretion. Performed By: #### C ROMEO DEY MDIFF #### [facility] [address] [place] [address] #### PCAL #### [address] Protein [Mass/Vol] 5.6 g/dL Low 6.3-8.2 [facility] Comment on above: Performed By: #### ROMEO LOPEZ MDIFF #### [facility] [address] [place] [address] #### PCAL #### [address] Potassium [Moles/Vol] 4.5 mmol/L Normal 3.5-5.1 [facility] Comment on above: Performed By: #### ROMEO LOPEZ MDIFF #### [facility] [address] [place] [address] #### PCAL #### [address] [address] Sodium [Moles/Vol] 136 mmol/L Normal 135-145 [facility] Comment on above: Performed By: #### ROMEO LOPEZ MDIFF #### [facility] [employer] [address] [place] [address] #### PCAL #### [facility] [address] [place] [address] Albumin [Mass/Vol] 3.2 g/dL Low 3.5-5.0 [facility] Comment on above: Performed By: #### ROMEO LOPEZ MDIFF #### [facility] [address] [place] [address] #### PCAL #### [place] [address] [place] [address] Chloride [Moles/Vol] 100 mmol/L Normal 98-107 [facility] Work Phone: [phone] Comment on above: Performed By: #### ROMEO LOPEZ MDIFF #### [facility] [address] [place] [address] #### PCAL #### [place] [address] [place] [address] Comprehensive Metabolic Pane l w/ Reflex to MGon 05-01-2022 Albumin [Mass/Vol] 3.2 g/dL Low 3.5 - 5.0 g/dL [facility] Work Phone: [phone] ALP (Bld) [Catalytic activity/Vol] 73 U/L 38 - 126 U/L [facility] Work Phone: [phone] ALT [Catalytic activity/Vol] 14 U/L 0 - 34 U/L [facility] Work Phone: [phone] Comment on above: The ALT test is perf ormed by an updated assay method. Please note that the reference intervals have been changed and are now sex specific. Anion gap [Moles/Vol] 6 mmol/L 3 - 13 mmol/L [facility] Work Phone: [phone] AST [Catalytic activity/Vol] 19 U/L 15 - 46 U/L [facility] Work Phone: [phone] Bilirubin [Mass/Vol] 0.5 mg/dL 0.2 - 1 .3 mg/dL [facility] Work Phone: [phone] Calcium [Mass/Vol] 7.8 mg/dL Low 8.4 - 10. 4 mg/dL [facility] Work Phone: [phone] CO2 [Moles/Vol] 30 mmol/L 22 - 30 mmol/L [facility] Work Phone: [phone] Creatinine [Mass/Vol] 1.77 mg/dL High 0.52 - 1.25 mg/dL [facility] Work Phone: [phone] IF NonAfrican [place] 29.7 mL/min Abnormal >60 [facility] Work Phone: [phone] Comment on above: KDIGO guidelines pro vide the following GFR categories: Stage GFR(ml/min/1.73 m2) Terms G1 >=90 Normal or high G2 60-89 Mildly decreased* G3a 45-59 Mildly to moderately decreased G3b 30-44 Moderately to severely decreased G4 15-29 Severely decreased G5 <15 Kidney failure *Relative to young adult level. In the absence of evidence of kidney damage, neither GFR category G1 nor G2 fulfill the criteria for CKD. The CKD-EPI equation is validated in individuals 18 years of age and older. Currently the best equation for estimating glomerular filtration rate (GFR) from serum creatinine in children is the Bedside Martinez equation. It is less accurate in patients with extremes of muscle mass, restriction of dietary protein, ingestion of creatine, extra-renal metabolism of creatinine, or treatment with medications that affect renal tubular creatinine secretion. Free PSA/Total PSA [Mass fraction] 5.6 g/dL Low 6.3 - 8.2 g/dL [facility] Work Phone: [phone] GFR/1.73 sq M.predicted among blacks MDRD (S/P/Bld) [Vol rate/Area] 34.4 mL/min/{1.73_m2} Abnormal >60 [facility] Work Phone: [phone] Glucose [Mass/Vol] 282 mg/dL High 70 - 100 mg/dL [facility] Work Phone: [phone] Interpretation and review of laboratory results Abnormal [facility] Work Phone: [phone] Potassium [Moles/Vol] 4.5 mmol/L 3.5 - 5.1 mmol/L [facility] Work Phone: Sodium [Moles/Vol] 136 mmol/L 135 - 145 mmol/L [facility] Work Phone: [phone] Urea nitrogen (BldV) [Mass/Vol] 44 mg/dL High 9 - 20 mg/dL [facility] Work Phone: [phone] Test Performed by [facility], [address] 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 : 1955 Requested By: GIGI DIEHL Order Number: [id number] Reading MD: Gigi Gao Measurements Intervals [place] Rate: 103 P: 18 [place]: 168 QRS: -49 QRSD: 62 T: 48 QT: 332 QTc: 435 Interpretive Statements SINUS TACHYCARDIA INFERIOR INFARCT, OLD ANTERIOR INFARCT, AGE INDETERMINATE LEFT AXIS DEVIATION When compared to 10/02/2021 there has been no significant change Electronically Signed On 05-01-2022 17:37:49 EDT by Gigi Gao [facility] Gigi Gao MD - 05/01/2022 [facility] Test Date: 2022-04-30 Pat Name: KIMBERLY PATEL Department: 01 Room: 453 Gender: F 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: ZL : 1955 Requested By: GIGI DIEHL Order Number: [id number] Reading MD: Gigi Gao Measurements Intervals [place] Rate: 103 P: 18 [place]: 168 QRS: -49 QRSD: 62 T: 48 QT: 332 QTc: 435 Interpretive Statements SINUS TACHYCARDIA INFERIOR INFARCT, OLD ANTERIOR INFARCT, AGE INDETERMINATE LEFT AXIS DEVIATION When compared to 10/02/2021 there has been no significant change Electronically Signed On 05-01-2022 17:37:49 EDT by Gigi Gao [facility] Work Phone: EKG 12 Lead - Chest PainOrde red By: Gigi Gao on 05-01-2022 [facility] Work Phone: Glucose,Bedsideon 05-01-2022 Glucose [Mass/Vol] 288 mg/dL High 70-100 [facility] Comment on above: Result Comment: Test performed by glucose meter. Results may be 10%-15% lower than serum/plasma values. (CLIA ID [id number]) Performed By: #### L ACTS #### [place] [address] [place] [address] Glucose [Mass/Vol] 143 mg/dL High 70-100 [facility] Comment on above: Result Comment: Test performed by glucose meter. Results may be 10%-15% lower than serum/plasma values. (CLIA ID [id number]) Performed By: #### L ACTS #### [place] [address] [place] [address] Glucose [Mass/Vol] 256 mg/dL High 70-100 [facility] Comment on above: Result Comment: Test performed by glucose meter. Results may be 10%-15% lower than serum/plasma values. (CLIA ID [id number]) Performed By: #### C TIBURCIO HEMELLEN, MDIFF #### [place] [address] [place] [address] #### PCAL #### [place] [address] [place] [address] Glucose [Mass/Vol] 235 mg/dL High 70-100 [facility] Comment on above: Result Comment: Test performed by glucose meter. Results may be 10%-15% lower than serum/plasma values. (CLIA ID [id number]) Performed By: #### C MP3M, HEMDF, MDIFF #### [place] [address] [place] [address] #### PCAL #### [place] [address] [place] [address] Hemogram w/ Autodiffon 05-01 Abs Baso Cnt 0.0 10*3/uL Normal 0.0-0.2 [facility] Comment on above: Performed By: #### L ACTS #### [facility] [address] [place] [address] Abs Neutrophile Cnt 12.3 10*3/uL High 1.8-7.0 [facility] Comment on above: Performed By: #### L ACTS #### [facility] [address] [place] [address] Basophils/100 WBC (Bld) 0.1 % Normal 0.0-2.0 [facility] Comment on above: Performed By: #### L ACTS #### [facility] [address] [place] [address] Eosinophils (Bld) [#/Vol] 0.0 10*3/uL Normal 0.0-0.5 [facility] Comment on above: Performed By: #### L ACTS #### [facility] [address] [place] [address] Eosinophils/100 WBC (Bld) 0.2 % Low 1.0-6.0 [facility] Comment on above: Performed By: #### L ACTS #### [facility] [address] [place] [address] Erythrocyte distribution width (RBC) [Ratio] 13.6 % Normal 11.5-14.5 [facility] Comment on above: Performed By: #### L ACTS #### [facility] [address] [place] [address] Granulocytes/100 WBC (Bld) 89.5 % High 40.0-80.0 [facility] Comment on above: Performed By: #### L ACTS #### [facility] [address] [place] [address] Hematocrit (Bld) [Volume fraction] 27.7 % Low 35.0-47.0 [facility] Comment on above: Performed By: #### L ACTS #### [facility] [address] [place] [address] Hemoglobin (Bld) [Mass/Vol] 9.0 g/dL Low 11.7-16.0 [facility] Comment on above: Performed By: #### L ACTS #### [facility] [address] [place] [address] Lymphocytes (Bld) [#/Vol] 0.8 10*3/uL Low 1.0-4.3 [facility] Comment on above: Performed By: #### L ACTS #### [facility] [address] [place] [address] Lymphocytes/100 WBC (Bld) 5.5 % Low 20.0-40.0 [facility] Comment on above: Performed By: #### L ACTS #### [facility] [address] [place] [address] MCH (RBC) [Entitic mass] 29.3 pg Normal 26.0-34.0 [facility] Comment on above: Performed By: #### L ACTS #### [facility] [address] [place] [address] MCHC 32.4 % Normal 32.0-36.0 [facility] Comment on above: Performed By: #### L ACTS #### [facility] [address] [place] [address] MCV (RBC) [Entitic vol] 90.5 fL Normal 79.0-98.0 [facility] Comment on above: Performed By: #### L ACTS #### [facility] [address] [place] [address] Monocytes (Bld) [#/Vol] 0.6 10*3/uL Normal 0.0-0.8 [facility] Comment on above: Performed By: #### L ACTS #### [facility] [address] [place] [address] Monocytes/100 WBC (Bld) 4.7 % Normal 2.0-10.0 [facility] Comment on above: Performed By: #### L ACTS #### [facility] [address] [place] [address] Platelet mean volume (Bld) [Entitic vol] 7.0 fL Low 7.4-12.4 [facility] Comment on above: Result Comment: MPV is a calculated measurement using platelet volume ratio. Performed By: #### L ACTS #### [facility] [address] [place] [address] Platelets (Bld) [#/Vol] 100 10*3/uL Low 140-440 [facility] Comment on above: Performed By: #### L ACTS #### [facility] [address] [place] [address] RBC (Bld) [#/Vol] 3.06 10*6/uL Low 3.80-5.20 [facility] Comment on above: Performed By: #### L ACTS #### [facility] [address] [place] [address] WBC (Bld) [#/Vol] 13.7 10*3/uL High 3.6-10.7 [facility] Comment on above: Performed By: #### L ACTS #### [facility] [address] [place] [address] Lactate, Sepsison 05-01-2022 Lactate [Moles/Vol] 1.1 mmol/L 0.7 - 2. 0 mmol/L [facility] Work Phone: Test Performed by [place] [address] [place], [place] [id number] [place] [address] LAB [facility] Work Phone: Lactate [Moles/Vol] 1.7 mmol/L 0.7 - 2. 0 mmol/L [facility] Work Phone: Test Performed by [place] [address] [place], [place] [id number] [place] [address] LAB [facility] Work Phone: Lactic Acid, Sepsison 2021 Lactate [Moles/Vol] 1.1 mmol/L Normal 0.7-2.0 [facility] Comment on above: Performed By: #### C ROMEO DEY MDIFF #### [facility] [address] [place] [address] #### PCAL #### [facility] [address] [place] [address] Lactate [Moles/Vol] 1.7 mmol/L Normal 0.7-2.0 [facility] Comment on above: Performed By: #### C ROMEO DEY MDIFF #### [facility] [address] [place] [address] #### PCAL #### [facility] [address] [place] [address] POCT GlucoseOrdered By: Deo Lopez on 05-01-2022 Glucose [Mass/Vol] 288 mg/dL High 70 - 100 mg/dL [facility] Comment on above: Test performed by gl ucose meter. Results may be 10%-15% lower than serum/plasma values. (CLIA ID [id number]) Interpretation and review of laboratory results Abnormal [facility] POCT Glucoseon 05-01-2022 Test Performed by [facility], [address] LAB Glucose [Mass/Vol] 143 mg/dL High 70 - 100 mg/dL [facility] Work Phone: Comment on above: Test performed by gl ucose meter. Results may be 10%-15% lower than serum/plasma values. (CLIA ID [id number]) Interpretation and review of laboratory results Abnormal [facility] Work Phone: Test Performed by [facility], [address] LAB [facility] Work Phone: Test Performed by [facility], [address] LAB Glucose [Mass/Vol] 235 mg/dL High 70 - 100 mg/dL [facility] Work Phone: Comment on above: Test performed by gl ucose meter. Results may be 10%-15% lower than serum/plasma values. (CLIA ID [id number]) Interpretation and review of laboratory results Abnormal [facility] Work Phone: Test Performed by [facility], [address] LAB [facility] Work Phone: POCT GlucoseOrdered By: Adam Linda on 05-01-2022 Glucose [Mass/Vol] 256 mg/dL High 70 - 100 mg/dL [facility] Work Phone: Comment on above: Test performed by gl ucose meter. Results may be 10%-15% lower than serum/plasma values. (CLIA ID [id number]) Interpretation and review of laboratory results Abnormal [facility] Work Phone: [facility] Work Phone: Procalcitoninon 05-01-2022 Procalcitonin 28.15 ng/mL High 0.00-0.09 [facility] Comment on above: Performed By: #### C MP3M, HEMDF, MDIFF #### [facility] [place] [address] [place] [address] #### PCAL #### [facility] [employer] [address] [address] Interpretation See Below [facility] Work Phone: Comment on above: PCT <0.50 = Low risk of severe sepsis and/or septic shock. PCT >2.00 = High risk of severe sepsis and/or septic shock. Interpretation and review of laboratory results Abnormal [facility] Work Phone: [phone] Procalcitonin 28.15 ng/mL High 0.00 - 0.09 ng/mL [facility] Work Phone: Test Performed by [facility], [address] [place] [address] LAB [facility] Work Phone: [phone] Procalcitonin 4.88 ng/mL High 0.00-0.09 [facility] Comment on above: Performed By: #### L ACTS #### [facility] [place] [address] [place] [address] Interpretation See Below [facility] Comment on above: PCT <0.50 = Low risk of severe sepsis and/or septic shock. PCT >2.00 = High risk of severe sepsis and/or septic shock. Interpretation and review of laboratory results Abnormal [facility] Procalcitonin 4.88 ng/mL High 0.00 - 0.09 ng/mL [facility] Test Performed by linkedü [facility], [address] [place] [address] LAB [facility] Sodium, Ur Randomon 05-01-20 22 Sodium [Moles/Vol] 35 mmol/L Normal 30-90 [facility] Comment on above: Performed By: #### L ACTS #### [facility] [address] [place] [place] [address] Sodium, Urine, RandomOrdered By: Aj Carl on 05-01-2022 Sodium (U) [Moles/Vol] 35 mmol/L 30 - 90 mmol/L [facility] Sodium, Urine, Randomon 07-0 Test Performed by [facility], [address] LAB US RETROPERITONEAL COMPLETEo n 05-01-2022 Radiology Study observation (narrative) [facility] Work Phone: Add On Lab Teston 04-30-2022 Add On Accepted [facility] Work Phone: Comment on above: Specimen available & acceptable for analysis. Test Performed by [facility], [facility] [address] [place] [address] LAB [facility] Work Phone: Add on test from HISon 04-30 Add on test from HIS Accepted Normal [facility] Comment on above: Result Comment: Spec imen available & acceptable for analysis. Performed By: #### A DDON #### [facility] [address] [place] [address] COVID-19, Flu A/B, and RSV C omboon 04-30-2022 Influenza A by PCR Not detected [facility] Influenza B by PCR Not detected [facility] RSV PCR Not Detected. Expected Result: Not Detected _ Method: Real-time, RT-PCR This assay was developed by [employer] and distributed under an Emergency Use Authorization (EUA) granted by the FDA for the qualitative detection of nucleic acids from SARS-CoV-2, Influenza A, Influenza B, and Respiratory Syncytial Virus. Provider and patient fact sheets can be found at https://www.fda.gov/med ia/593939/download and https://www.fda.gov/med ia/835671/download. [facility] SARS-CoV-2 (COVID-19) RNA IGGY+probe Ql (Unsp spec) Not detected [facility] Test Performed by [facility], [address] [place], [place] [address] [facility] CR Chest Portableon 04-30-20 22 CR Chest Portable Patient Name: KIMBERLY PATEL Diagnostic Radiology ACCESSION EXAM DATE/TIME PROCEDURE ORDERING PROVIDER [id number] 04/30/2022 16:58 EDT CR Chest Portable [id number] -GIGI DIEHL CPT code 69254 Reason For Exam (CR Chest Portable) fever Report CHEST PORTABLE CLINICAL INDICATION: fever TECHNIQUE: Portable chest x-ray(s). COMPARISON: September,. FINDINGS: Mild cardiomegaly, stable. Lungs are grossly clear. No significant vascular congestion. No apparent pleural effusion or pneumothorax. Degenerative change again noted in the thoracic spine. IMPRESSION: 1. No acute consolidation. Report Dictated on Workstation: PATTY Final Dictating Physician: MD BARRIOS WENDELL Signed Date and Time: 04/30/2022 5:11 pm Signed by: MD BARRIOS WENDELL Transcribed Date and Time: 04/30/2022 5:12 Normal [facility] Comp Metabolic Panelon 04-30 ALP [Catalytic activity/Vol] 99 U/L Normal 38-126 [facility] Comment on above: Performed By: #### ROMEO LOPEZ MDIFF #### [facility] [address] [place] [address] #### PCAL #### [address] [address] Protein [Mass/Vol] 6.6 g/dL Normal 6.3-8.2 [facility] Comment on above: Performed By: #### ROMEO LOPEZ MDIFF #### [facility] [address] [facility] [address] #### PCAL #### [address] [address] Urea nitrogen [Mass/Vol] 41 mg/dL High 9-20 [facility] Comment on above: Performed By: #### ROMEO LOPEZ MDIFF #### [facility] [address] [place] [address] #### PCAL #### [facility] [address] [place] [address] Creatinine [Mass/Vol] 1.29 mg/dL High 0.52-1.25 [facility] Comment on above: Performed By: #### C ROMEO DEY MDIFF #### [facility] [address] [place] [address] #### PCAL #### [address] [address] GFR/1.73 sq M.predicted among blacks MDRD (S/P/Bld) [Vol rate/Area] 50.4 mL/min/{1.73_m2} Abnormal >60 [facility] Comment on above: Performed By: #### C ROMEO DEY MDIFF #### [facility] [address] [place] [address] #### PCAL #### [address] [address] GFR/1.73 sq M.predicted among non-blacks MDRD (S/P/Bld) [Vol rate/Area] 43.5 mL/min/{1.73_m2} Abnormal >60 [facility] Comment on above: Result Comment: KDIG O guidelines provide the following GFR categories: Stage GFR(ml/min/1.73 m2) Terms G1 >=90 Normal or high G2 60-89 Mildly decreased* G3a 45-59 Mildly to moderately decreased G3b 30-44 Moderately to severely decreased G4 15-29 Severely decreased G5 <15 Kidney failure *Relative to young adult level. In the absence of evidence of kidney damage, neither GFR category G1 nor G2 fulfill the criteria for CKD. The CKD-EPI equation is validated in individuals 18 years of age and older. Currently the best equation for estimating glomerular filtration rate (GFR) from serum creatinine in children is the Bedside Martinez equation. It is less accurate in patients with extremes of muscle mass, restriction of dietary protein, ingestion of creatine, extra-renal metabolism of creatinine, or treatment with medications that affect renal tubular creatinine secretion. Performed By: #### C ROMEO DEY MDIFF #### [facility] [place] [address] [place] [address] #### PCAL #### [place] [address] [place], [place] Albumin [Mass/Vol] 3.7 g/dL Normal 3.5-5.0 [facility] Comment on above: Performed By: #### ROMEO LOPEZ MDIFF #### [place] [address] [place] [address] #### PCAL #### [place] [address] [place], [place] Chloride [Moles/Vol] 101 mmol/L Normal 98-107 [facility] Comment on above: Performed By: #### C ROMEO DEY MDIFF #### [place] [address] [place] [address] #### PCAL #### [place] [address] [place], [place] Potassium [Moles/Vol] 4.4 mmol/L Normal 3.5-5.1 [facility] Comment on above: Performed By: #### C ROMEO DEY MDIFF #### [place] [address] [place] [address] #### PCAL #### [place] [address] [facility], [place] Sodium [Moles/Vol] 135 mmol/L Normal 135-145 [facility] Comment on above: Performed By: #### C ROMEO DEY MDIFF #### [address] [place] [address] #### PCAL #### [place] [address] [facility] [place] [address] ALT [Catalytic activity/Vol] 16 U/L Normal 0-34 [facility] Comment on above: The ALT test is perf ormed by an updated assay method. Please note that the reference intervals have been changed and are now sex specific. Result Comment: The ALT test is performed by an updated assay method. Please note that the reference intervals have been changed and are now sex specific. Performed By: #### ROMEO LOPEZ MDIFF #### [address] [place] [address] #### PCAL #### [place] [address] [facility] [place], [place] Anion gap [Moles/Vol] 4 mmol/L Normal 3-13 [facility] Comment on above: Performed By: #### ROMEO LOPEZ MDIFF #### [place] [address] [place] [address] #### PCAL #### [place] [address] [facility] [place], [place] AST [Catalytic activity/Vol] 21 U/L Normal 15-46 [facility] Comment on above: Performed By: #### ROMEO LOPEZ MDIFF #### [place] [address] [place] [address] #### PCAL #### [place] [address] [facility] [place] Bilirubin [Mass/Vol] 0.7 mg/dL Normal 0.2-1.3 [facility] Comment on above: Performed By: #### ROMEO LOPEZ MDIFF #### [place] [address] [place] [address] #### PCAL #### [place] [address] [facility] [place] Calcium [Mass/Vol] 8.6 mg/dL Normal 8.4-10.4 [facility] Comment on above: Performed By: #### ROMEO LOPEZ MDIFF #### [place] [address] [place] [address] #### PCAL #### [place] [address] [facility] [place], [place] CO2 [Moles/Vol] 30 mmol/L Normal 22-30 [facility] Comment on above: Performed By: #### ROMEO LOPEZ MDIFF #### [place] [address] [place] [address] #### PCAL #### [place] [address] [facility] [place], [place] Glucose [Mass/Vol] 274 mg/dL High 70-100 [facility] Comment on above: Performed By: #### C MP3M, HEMDF, MDIFF #### [facility] [address] [place] [address] #### PCAL #### [facility] [address] [facility] [place] [address] Complete Urinalysison 2021 Appearance (U) Turbid Abnormal Clear [facility] Comment on above: Result Comment: . Performed By: #### L ACTS #### [facility] [address] [place] [address] Bacteria Loaded Abnormal Negative [facility] Comment on above: Result Comment: . Performed By: #### L ACTS #### [facility] [address] [place] [address] Bilirubin,Urine Negative Normal Negative [facility] Comment on above: Result Comment: . Performed By: #### L ACTS #### [facility] [address] [place] [address] Color (U) Yellow Normal Lt. Yellow [facility] Comment on above: Result Comment: . Performed By: #### L ACTS #### [facility] [address] [place] [address] Glucose Ql (U) 500 mg/dL Abnormal Normal (<70) [facility] Comment on above: Result Comment: . Performed By: #### L ACTS #### [facility] [address] [place] [address] Ketone,Urine Negative Normal Negative [facility] Comment on above: Result Comment: . Performed By: #### L ACTS #### [facility] [address] [place] [address] Leukocytes,Urine 500 Ha/uL Abnormal Negative [facility] Comment on above: Result Comment: . Performed By: #### L ACTS #### [facility] [address] [place] [address] Mucous Threads Few Normal Negative [facility] Comment on above: Result Comment: . Performed By: #### L ACTS #### [facility] [address] [place] [address] Nitrites,Urine Negative Normal Negative [facility] Comment on above: Result Comment: . Performed By: #### L ACTS #### [facility] [address] [place] [address] Non-Squamous Epithelial 1 /[HPF] Abnormal Negative [facility] Comment on above: Result Comment: . Performed By: #### L ACTS #### [facility] [address] [place] [address] Occult Blood,Urine 0.03 mg/dL Abnormal Negative [facility] Comment on above: Result Comment: . Performed By: #### L ACTS #### [facility] [address] [place] [address] pH,Urine 5.5 Normal 5.0-8.0 [facility] Comment on above: Result Comment: . Performed By: #### L ACTS #### [facility] [address] [place] [address] Protein (U) [Mass/Vol] 20 mg/dL Abnormal Negative [facility] Comment on above: Result Comment: . Performed By: #### L ACTS #### [facility] [address] [place] [address] RBC, Urine 3 - 5 Abnormal 0-2 [facility] Comment on above: Result Comment: . Performed By: #### L ACTS #### [facility] [address] [place] [address] Specific [place],Urine 1.014 Normal 1.005 - 1.030 [facility] Comment on above: Result Comment: . Performed By: #### L ACTS #### [facility] [address] [place] [address] Squamous Epithelial 11 - 25 Abnormal 3-5 [facility] Comment on above: Result Comment: . Performed By: #### L ACTS #### [facility] [address] [place] [address] Urobilinogen,Urine Normal Normal Normal (0-1) [facility] Comment on above: Result Comment: . Performed By: #### L ACTS #### [facility] [address] [place] [address] WBC, Urine 26 - 50 Abnormal 0-5 [facility] Comment on above: Result Comment: . Performed By: #### L ACTS #### [facility] [address] [place] [address] White Blood Cell Clump Moderate Abnormal Negative [facility] Comment on above: Result Comment: . Performed By: #### L ACTS #### [facility] [address] [place] [address] Comprehensive Metabolic Pane wade 04-30-2022 Albumin [Mass/Vol] 3.7 g/dL 3.5 - 5.0 g/dL [facility] ALP (Bld) [Catalytic activity/Vol] 99 U/L 38 - 126 U/L [facility] Chloride [Moles/Vol] 101 mmol/L 98 - 10 7 mmol/L [facility] Creatinine [Mass/Vol] 1.29 mg/dL High 0.52 - 1.25 mg/dL [facility] EGFR IF NonAfrican Kitt[place] 43.5 mL/min Abnormal >60 [facility] Comment on above: KDIGO guidelines pro vide the following GFR categories: Stage GFR(ml/min/1.73 m2) Terms G1 >=90 Normal or high G2 60-89 Mildly decreased* G3a 45-59 Mildly to moderately decreased G3b 30-44 Moderately to severely decreased G4 15-29 Severely decreased G5 <15 Kidney failure *Relative to young adult level. In the absence of evidence of kidney damage, neither GFR category G1 nor G2 fulfill the criteria for CKD. The CKD-EPI equation is validated in individuals 18 years of age and older. Currently the best equation for estimating glomerular filtration rate (GFR) from serum creatinine in children is the Bedside Martinez equation. It is less accurate in patients with extremes of muscle mass, restriction of dietary protein, ingestion of creatine, extra-renal metabolism of creatinine, or treatment with medications that affect renal tubular creatinine secretion. Free PSA/Total PSA [Mass fraction] 6.6 g/dL 6.3 - 8.2 g/dL [facility] GFR/1.73 sq M.predicted among blacks MDRD (S/P/Bld) [Vol rate/Area] 50.4 mL/min/{1.73_m2} Abnormal >60 [facility] Interpretation and review of laboratory results Abnormal [facility] Potassium [Moles/Vol] 4.4 mmol/L 3.5 - 5.1 mmol/L [facility] Sodium [Moles/Vol] 135 mmol/L 135 - 145 mmol/L [facility] Urea nitrogen (BldV) [Mass/Vol] 41 mg/dL High 9 - 20 mg/dL [facility] Test Performed by [facility], [address] [place], [place], [place] [address] [facility] ED Provider Noteon 2 ED Provider Note Emergency Department Encounter [facility] ED Patient: Kimberly Patel : 1955 Date of Evaluation: 04/30/2022 ED Provider: Gigi Diehl MD Note: I wore an N95 mask and gloves during this encounter. CHIEF COMPLAINT: fatigue HPI: Kimberly Patel is a 66 y.o. 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 Patient reports she has felt fatigued, generally weak, and lethargic since yesterday, unable to provide exact timing, she denies any other localizing or specific symptoms including fever chills, cough, chest pain, shortness of breath, abdominal pain, nausea or vomiting, diarrhea, dysuria hematuria urinary frequency, rashes or lesions including the groin or extremities, falls or injury. Per ED nursing staff, patient's family called and reported patient had similar presentation as a result of urinary tract infection recently. Patient denies leaving exacerbating factors. REVIEW OF SYSTEMS: 10 systems reviewed and otherwise acutely negative except as per HPI. HISTORIES: PAST MEDICAL HISTORY: as per HPI SOCIAL HISTORY: Former tobacco use, speaks Monegasque MEDICATIONS: Nursing notes and EMR reviewed ALLERGIES: Nursing notes and EMR reviewed PHYSICAL EXAM: Vital signs: reviewed General: Ill-appearing, nontoxic Eyes: no conjunctival injection, eyes tracking HEENT: airway patent, mucous membranes moist Cardiovascular: regular rhythm, tachycardic rate Respiratory: non-labored breathing, mildly diminished breath sounds bilaterally, no wheezing crackles or rhonchi, no tachypnea, saturating appropriately on nasal cannula Gastrointestinal: soft, non-distended, non-tender to deep palpation throughout Extremities: no obvious deformity, non edematous, scattered subacute scabbed lesions on the extremities with no surrounding erythema or warmth Integumentary: warm, dry Neurologic: 1A. Level of consciousness (0-3) = 0 1B. LOC Questions (0-2) = 0 1C. LOC Commands (0-2) = 0 2. Horizontal gaze (0-2) = 0 3. Visual gaming (0-3) = 0 4. Facial palsy (0-3) = 0 5. Motor arm Right (0-4) = 0 Left (0-4) = 0 6. Motor leg Right (0-4) = 0 Left (0-4) = 0 7. Limb ataxia (0-2) = 0 8. Sensory (0-2) = 0 9. Best Language = (0-3) = 0 10. Dysarthria (0-2) = 0 11. Extinction and inattention (0-2) = 0 Total NIHSS = 0 Medications - No data to display MEDICAL DECISION MAKING: Kimberly Patel is a 66 y.o. female who presents as above, with 24 hours of fatigue, generalized weakness, lethargy, arrives febrile, tachycardic, saturating well on baseline oxygen requirement with otherwise reassuring vitals, she denies any localizing symptoms to suggest an acute infectious source, although family reports patient recently had similar presentation with urinary tract infection. Presentation concerning for sepsis, will obtain work-up including chest x-ray, EKG, broad laboratory evaluation including blood cultures and lactate, COVID testing, will treat with bolus fluid -although defer large-volume given history of CHF, empiric vancomycin and cefepime, Tylenol. Labs reviewed, notable for lactate 2.2 -we will repeat following fluid bolus, WBC 10.9, mild anemia, urinalysis consistent with urinary tract infection, chronic renal insufficiency improved from prior evaluation, hyperglycemia with normal range bicarb and anion gap EKG interpreted using Epiphany, notable for sinus tachycardia, no acute ischemic ST segment changes, troponin 0.019 CXR obtained, interpreted per radiologist no acute consolidation Patient will be hospitalized for further evaluation management include antibiotics, patient is agreeable with plan, patient discussed with the admitting Dr. Lai, appropriate stable for admission at this time. DIAGNOSIS: Urinary tract infection, sepsis DISPOSITION: Admission Comment: Please note this report has been produced using speech recognition software and may contain errors related to that system including errors in grammar, punctuation, and spelling, as well as words and phrases that may be inappropriate. If there are any questions or concerns please feel free to contact the dictating provider for clarification. Gigi Diehl MD [facility] Gigi Diehl MD 04/30/22 2303 [facility] Glucose,Bedsideon 04-30-2022 Glucose [Mass/Vol] 264 mg/dL High 70-100 [facility] Comment on above: Result Comment: Test performed by glucose meter. Results may be 10%-15% lower than serum/plasma values. (CLIA ID [id number]) Performed By: #### C ROMEO DEY MDIFF #### [facility] [address] [facility] [address] #### PCAL #### [address] Glucose [Mass/Vol] 284 mg/dL High 70-100 [facility] Comment on above: Result Comment: Test performed by glucose meter. Results may be 10%-15% lower than serum/plasma values. (CLIA ID [id number]) Performed By: #### C ROMEO DEY MDIFF #### [facility] [employer] [facility] [address] [place] [address] #### PCAL #### [address] Hemogramon 04-30-2022 Erythrocyte distribution width (RBC) [Ratio] 13.6 % Normal 11.5-14.5 [facility] Comment on above: Performed By: #### ROMEO LOPEZ MDIFF #### [facility] [address] [place] [address] #### PCAL #### [address] Hematocrit (Bld) [Volume fraction] 33.4 % Low 35.0-47.0 [facility] Comment on above: Performed By: #### C ROMEO DEY MDIFF #### [facility] [employer] [facility] [address] [address] #### PCAL #### [address] Hemoglobin (Bld) [Mass/Vol] 10.7 g/dL Low 11.7-16.0 [facility] Comment on above: Performed By: #### C ROMEO DEY MDIFF #### [facility] [address] [place] [address] #### PCAL #### [facility] [address] [place], [place] MCH (RBC) [Entitic mass] 29.2 pg Normal 26.0-34.0 [facility] Comment on above: Performed By: #### C ROMEO DEY MDIFF #### [facility] [address] [place] [address] #### PCAL #### [place] [address] [place], [place] MCHC 32.1 % Normal 32.0-36.0 [facility] Comment on above: Performed By: #### C ROMEO DEY MDIFF #### [place] [address] [place] [address] #### PCAL #### [address] MCV (RBC) [Entitic vol] 90.9 fL Normal 79.0-98.0 [facility] Comment on above: Performed By: #### C ROMEO DEY MDIFF #### [facility] [address] [place] [address] #### PCAL #### [place] [address] [place], [place] Platelet mean volume (Bld) [Entitic vol] 6.5 fL Low 7.4-12.4 [facility] Comment on above: Result Comment: MPV is a calculated measurement using platelet volume ratio. Performed By: #### C ROMEO DEY MDIFF #### [facility] [address] [place] [address] #### PCAL #### [address] Platelets (Bld) [#/Vol] 212 10*3/uL Normal 140-440 [facility] Comment on above: Performed By: #### C ROMEO DEY MDIFF #### [facility] [address] [place] [address] #### PCAL #### [facility] [address] [place], [place] RBC (Bld) [#/Vol] 3.68 10*6/uL Low 3.80-5.20 [facility] Comment on above: Performed By: #### C ROMEO DEY MDIFF #### [facility] [address] [place] [address] #### PCAL #### [facility] [address] [place], [place] WBC (Bld) [#/Vol] 10.9 10*3/uL High 3.6-10.7 [facility] Comment on above: Performed By: #### C ROMEO DEY MDIFF #### [facility] [address] [place] [address] #### PCAL #### [facility] [address] [place], [place] Hemogram (CBC)on 04-30-2022 Hematocrit (Bld) [Volume fraction] 33.4 % Low 35.0 - 47.0 % [facility] Hemoglobin (Bld) [Mass/Vol] 10.7 g/dL Low 11.7 - 16.0 g/dL [facility] Interpretation and review of laboratory results Abnormal [facility] MCH (RBC) [Entitic mass] 29.2 pg 26.0 - 34.0 pg [facility] MCHC (RBC) [Mass/Vol] 32.1 % 32.0 - 36.0 % [facility] MCV (RBC) [Entitic vol] 90.9 fL 79.0 - 98.0 fL [facility] Platelet distribution width (Bld) [Ratio] 13.6 % 11.5 - 14.5 % [facility] Platelet mean volume (Bld) [Entitic vol] 6.5 fL Low 7.4 - 12.4 fL [facility] Comment on above: MPV is a calculated measurement using platelet volume ratio. Platelets (Bld) [#/Vol] 212 10*3/uL 140 - 440 10*3/uL [facility] RBC (Bld) [#/Vol] 3.68 10*6/uL Low 3.80 - 5.2 0 10*6/uL [facility] WBC (Bld) [#/Vol] 10.9 10*3/uL High 3.6 - 10.7 10*3/uL [facility] Test Performed by [facility], [address] LAB [facility] Lactate, Sepsison 04-30-2022 Interpretation and review of laboratory results Abnormal [facility] Lactate [Moles/Vol] 2.2 mmol/L Critically high 0.7 - 2.0 mmol/L [facility] Test Performed by [facility], [address] [facility] Lactic Acid, Sepsison 2021 Lactate [Moles/Vol] 2.2 mmol/L Critically high 0.7-2.0 [facility] Comment on above: Performed By: #### L ACTS #### [facility] [address] [place] [address] POCT GlucoseOrdered By: Cliff Tatum on 04-30-2022 Glucose [Mass/Vol] 264 mg/dL High 70 - 100 mg/dL [facility] Comment on above: Test performed by gl ucose meter. Results may be 10%-15% lower than serum/plasma values. (CLIA ID [id number]) Interpretation and review of laboratory results Abnormal [facility] Gl[facility]on 04-30-2022 Test Performed by [facility], [address] LAB Test Performed by [facility], [address] LAB POCT GlucoseOrdered By: Nataly Zelaya on 04-30-2022 Interpretation and review of laboratory results Normal [facility] QC OK? y [facility] POCT GlucoseOrdered By: Liam Santillan on 04-30-2022 Glucose [Mass/Vol] 284 mg/dL High 70 - 100 mg/dL [facility] Comment on above: Test performed by gl ucose meter. Results may be 10%-15% lower than serum/plasma values. (CLIA ID [id number]) Interpretation and review of laboratory results Abnormal [facility] Procalcitoninon 04-30-2022 Interpretation See Below Normal [facility] Comment on above: Result Comment: PCT <0.50 = Low risk of severe sepsis and/or septic shock. PCT >2.00 = High risk of severe sepsis and/or septic shock. Performed By: #### L ACTS #### [facility] [address] [place] [address] Interpretation See Below Normal [facility] Comment on above: Result Comment: PCT <0.50 = Low risk of severe sepsis and/or septic shock. PCT >2.00 = High risk of severe sepsis and/or septic shock. Performed By: #### C MP3M, HEMDF, MDIFF #### [facility] [address] [place] [address] #### PCAL #### [facility] [address] [place] [address] SARS-CoV-2, Flu A/B and RSVo n 04-30-2022 SARS-CoV-2 (COVID-19) RNA IGGY+probe Ql (Unsp spec) SARS-CoV-2 --> Status: F Not Detected. Flu A PCR --> Status: F Not Detected. Flu B PCR --> Status: F Not Detected. RSV PCR --> Status: F Not Detected. Expected Result: Not Detected _ Method: Real-time, RT-PCR This assay was developed by [employer] and distributed under an Emergency Use Authorization (EUA) granted by the FDA for the qualitative detection of nucleic acids from SARS-CoV-2, Influenza A, Influenza B, and Respiratory Syncytial Virus. Provider and patient fact sheets can be found at https://www.fda.gov/med ia/290841/download and https://www.fda.gov/med ia/682620/download. Expected Result: Not Detected _ Method: Real-time, RT-PCR This assay was developed by [employer] and distributed under an Emergency Use Authorization (EUA) granted by the FDA for the qualitative detection of nucleic acids from SARS-CoV-2, Influenza A, Influenza B, and Respiratory Syncytial Virus. Provider and patient fact sheets can be found at https://www.fda.gov/med ia/051009/download and https://www.fda.gov/med ia/233831/download. Normal [facility] Comment on above: Performed By: #### L ACTS #### [facility] [address] [place] [address] Troponin Ion 04-30-2022 Troponin I.cardiac [Mass/Vol] 0.019 ng/mL Normal 0.000-0.034 [facility] Comment on above: Result Comment: . Performed By: #### L ACTS #### [facility] [address] [place] [address] Troponin x1on 04-30-2022 Troponin I.cardiac [Mass/Vol] 0.019 ng/mL 0.000 - 0.034 ng/mL [facility] Comment on above: . Test Performed by [facility], [address] [place], [place] [address] [facility] Urinalysison 04-30-2022 Appearance (U) Turbid Abnormal Clear NA [facility] Comment on above: . Bacteria, UA Loaded Abnormal Negative /[HPF] [facility] Comment on above: . Bilirubin Urine Negative Negative mg/dL [facility] Comment on above: . Color (U) Yellow Lt. Yellow NA [facility] Comment on above: . Glucose, Ur 500 mg/dL Abnormal Normal (<70) [facility] Comment on above: . Interpretation and review of laboratory results Abnormal [facility] Ketones Ql (U) Negative Negative mg/dL [facility] Comment on above: . LEUKOCYTES, UA 500 Abnormal Negative Ha/uL [facility] Comment on above: . Mucous Threads Few Negative /[LPF] [facility] Comment on above: . Nitrite, Urine Negative Negative NA [facility] Comment on above: . Non-Squamous Epithelial 1 /[HPF] Abnormal Negative [facility] Comment on above: . Occult Blood,Urine 0.03 mg/dL Abnormal Negative [facility] Comment on above: . pH (U) 5.5 [pH] [facility] Comment on above: . Protein (U) [Mass/Vol] 20 mg/dL Abnormal Negative [facility] Comment on above: . RBC, UA 3-5 Abnormal 0 - 2 /[HPF] [facility] Comment on above: . Specific [place], Urine 1.014 S [facility] Comment on above: . Squam Epithel, UA 11-25 Abnormal 3 - 5 /[HPF] [facility] Comment on above: . Urobilinogen, Urine Normal Normal (0-1) mg/dL [facility] Comment on above: . WBC Clumps, Urine Moderate Abnormal Negative /[HPF] [facility] Comment on above: . WBC, UA 26-50 Abnormal 0 - 5 /[HPF] [facility] Comment on above: . Test Performed by [facility], [address], [place], [place] [address] [facility] X[facility] CHEST PORTABLEon 04-30-20 Patient Name: KIMBERLY PATEL Diagnostic Radiology ACCESSION EXAM DATE/TIME PROCEDURE ORDERING PROVIDER [id number] 04/30/2022 16:58 EDT CR Chest Portable [id number] ANDERSON CPT code 76409 Reason For Exam (CR Chest Portable) fever Report CHEST PORTABLE CLINICAL INDICATION: fever TECHNIQUE: Portable chest x-ray(s). COMPARISON: September,. FINDINGS: Mild cardiomegaly, stable. Lungs are grossly clear. No significant vascular congestion. No apparent pleural effusion or pneumothorax. Degenerative change again noted in the thoracic spine. IMPRESSION: 1. No acute consolidation. Report Dictated on Workstation: PATTY --- Final --- Dictating Physician: MD BARRIOS WENDELL Signed Date and Time: 04/30/2022 5:11 pm Signed by: MD BARRIOS WENDELL Transcribed Date and Time: 04/30/2022 5:12 [facility] RAD Fransico Barrios MD - 04/30/2022 Patient Name: KIMBERLY PATEL Diagnostic Radiology ACCESSION EXAM DATE/TIME PROCEDURE ORDERING PROVIDER [id number] 04/30/2022 16:58 EDT CR Chest Portable [id number] ANDERSON CPT code 50359 Reason For Exam (CR Chest Portable) fever Report CHEST PORTABLE CLINICAL INDICATION: fever TECHNIQUE: Portable chest x-ray(s). COMPARISON: September,. FINDINGS: Mild cardiomegaly, stable. Lungs are grossly clear. No significant vascular congestion. No apparent pleural effusion or pneumothorax. Degenerative change again noted in the thoracic spine. IMPRESSION: 1. No acute consolidation. Report Dictated on Workstation: PATTY --- Final --- Dictating Physician: MD BARRIOS WENDELL Signed Date and Time: 04/30/2022 5:11 pm Signed by: MD BARRIOS WENDELL Transcribed Date and Time: 04/30/2022 5:12 [facility]: Radiology Study observation (narrative) [facility] Work Phone: XR CHEST PORTABLEOrdered By: Fransico Barrios on 04-30-2022 [facility] Work Phone: CNPNon 04-[facility]-20[facility] KIMBERLY PATEL ([id number]) 1955 [facility] Date Time Provider Department 04/25/22 FRANKIE DENG [facility] During your visit today, we recorded the following information about you: Jil Mendoza 04/25/2022 10:21 AM Signed Patient calling in to speak with Susan Cuello the pharmacist To give her a call. Has questions about her medications Susan Cuello [facility] 04/25/2022 10:44 AM Signed Returned patients call as requested. Patient wanted to confirm that the new 5 mm pen needles are shorter than the 8 mm needles she recently had. Advised that yes, the most recent pen needle Rx for 31 G, 5 mm pen needles are shorter as we discussed at our last fern. Patient verbalized understanding and denied any questions or concerns. Thank you, Susan Cuello, PharmD Allergies As of Date: 04/25/2022 Noted Allergy Reaction DILAUDID (HYDROMORPHONE (BULK)) 05/30/2012 11 - Vomiting JARDIANCE (EMPAGLIFLOZIN) 11/07/2021 14 - Other: See Comments Comments: UTI METFORMIN 05/30/2012 6 - Diarrhea MORPHINE 05/30/2012 11 - Vomiting ONDANSETRON 02/14/2021 16 - Unknown PENICILLINS 05/30/2012 2 - Rash TRULICITY (DULAGLUTIDE) 11/07/2021 8 - GI Upset Comments: Nausea/Vomiting Date Reviewed: 04/14/2022 Reviewed by: Susan Cuello [facility] - Fully Assessed Reason for Visit: Patient Question [2447] Cmt: Medications Prescriptions as of 04/25/2022 - Insulin Conover, Disposable, (PEN NEEDLE) 31 gauge x 3/16 Use as directed to inject insulin 5 times daily as directed. insulin: yes, E11.42 - insulin detemir U-100 (LEVEMIR FLEXTOUCH U-100 INSULIN) 100 unit/mL (3 mL) injection pen Inject 78 units subcutaneously in the AM, 85 units subcutaneously in the PM - HUMALOG KWIKPEN INSULIN 200 unit/mL (3 mL) injection INJECT 50 UNITS SUBCUTANEOUSLY BEFORE BREAKFAST, 50 UNITS SUBCUTANEOUSLY BEFORE LUNCH, 50 UNITS SUBCUTANEOUSLY BEFORE DINNER. ADMINISTER THIS WITHIN 15 MINUTES BEFORE YOUR MEALS OR IMMEDIATELY AFTER YOUR MEALS. - furosemide (LASIX) 20 mg tablet Take 1 tablet by mouth once daily. - pregabalin (LYRICA) 75 mg capsule Take 1 capsule by mouth twice daily for 180 days. - metoprolol succinate ER (TOPROL XL) 25 mg 24 hr tablet Take 1 tablet by mouth every day - isosorbide mononitrate ER (IMDUR) 30 mg 24 hr tablet Take 1 tablet by mouth once daily. - nitroglycerin sublingual (NITROQUICK) 0.4 mg SL tablet Dissolve 1 tablet under the tongue as needed for chest pain. If no pain relief call 911. - ezetimibe (ZETIA) 10 mg tablet TAKE 1 TABLET BY MOUTH EVERY DAY - losartan (COZAAR) 50 mg tablet Take 1 tablet by mouth every day - atorvastatin (LIPITOR) 80 mg tablet Take 1 tablet by mouth every day - linaGLIPtin (TRADJENTA) 5 mg tab Take 1 tablet by mouth once daily. - fluticasone-vilanterol (BREO ELLIPTA) 200-25 mcg/dose inhaler Inhale 1 Inhalation as instructed once daily. - lancets 33 gauge - mupirocin (BACTROBAN) 2 % ointment as needed. - albuterol (PROVENTIL) 2.5 mg /3 mL (0.083 %) nebulizer solution Use 3 mL via nebulizer every 4 hours as needed for wheezing/shortness of breath. - albuterol HFA (PROVENTIL HFA, VENTOLIN HFA) 90 mcg/actuation inhaler Inhale 2 Puffs as instructed every 4 hours as needed for wheezing/shortness of breath. - flash glucose scanning reader (FREESTYLE GABRIELLE 2 READER) 1 Each. Use as directed to check blood sugars 3 times daily. Scan FreeStyle Gabrielle 2 sensors at least every 8 hours. - flash glucose sensor (FREESTYLE GABRIELLE 2 SENSOR) kit 2 Each. Use as directed to check blood sugars 3 times daily. Scan FreeStyle Gabrielle 2 sensors at least every 8 hours. Replace sensor every 14 days. - omeprazole (PRILOSEC) 20 mg capsule Take 1 capsule by mouth once daily. - Lancets lancets Use as directed to check blood sugar 3 times daily, insulin: yes, E11.9 - Lancing Device (LANCING DEVICE WITH LANCETS) misc Use as directed to check blood sugar 3 times daily, insulin: yes, E11.9 - HYDROcodone-Acetaminoph en (NORCO) 7.5-325 mg per tablet Take 1 tablet by mouth once daily as needed for pain. - polyethylene glycol 3350 (MIRALAX, GLYCOLAX) 17 gram packet Take 1 Packet by mouth once daily as needed (constipation). - WALKER ROLLATOR SEAT WITH 6 WHEELS - RED Walker rollator with seat - aspirin, enteric coated (ASPIRIN LOW DOSE) 81 mg EC tablet Take 81 mg by mouth once daily. - ranolazine SR (RANEXA) 1,000 mg tab ER 12 hr Take 1,000 mg by mouth twice daily. Meds Comments as of 07/08/2021: 07/08/21 The medications are managed by this patient by: LUIS ALBERTO Bedolla RPh 02/10/21 The medications are managed by this patient by: PATIENT Chiquita Bedolla PharmD 12/03/20 The medications are managed by this patient by: PATIENT Quique Guzmán PharmD Problem List As Of Date 04/25/2022 Noted Resolved Heart disease (organic) [I51.9] 05/31/2012 08/26/2021 DIYA (obstructive sleep apnea) [G47. (more content not included)... [facility] JORGEKIMBERLY ([id number]) 1955 [address] [facility] Date Time Provider Department 04/14/22 [facility] During your visit today, we recorded the following information about you: Susan Cuello [facility] 04/14/2022 1:[address] Deng, I am the clinical pharmacist currently consulted to aid in diabetes management for this mutual patient. I was originally referred by this patient's previous PCP, Dr. Meyer. Since the patient has since transitioned care to you, I have pended an updated consult order to this encounter if you agree to approve. ? Thank you, Susan Cuello, PharmD Frankie Deng MD 04/14/2022 5:59 PM Signed Happy to assist. Consult signed. Allergies As of Date: 04/14/2022 Noted Allergy Reaction DILAUDID (HYDROMORPHONE (BULK)) 05/30/2012 11 - Vomiting JARDIANCE (EMPAGLIFLOZIN) 11/07/2021 14 - Other: See Comments Comments: UTI METFORMIN 05/30/2012 6 - Diarrhea MORPHINE 05/30/2012 11 - Vomiting ONDANSETRON 02/14/2021 16 - Unknown PENICILLINS 05/30/2012 2 - Rash TRULICITY (DULAGLUTIDE) 11/07/2021 8 - GI Upset Comments: Nausea/Vomiting Date Reviewed: 04/14/2022 Reviewed by: Susan Cuello [facility] - Fully Assessed Reason for Visit: Care Coordination [1982] Primary Visit Diagnosis:Type 2 diabetes mellitus with diabetic polyneuropathy, with long-term current use of insulin ([facility]) [E11.42, Z79.4] Order(s):CONSULT TO PHARMACY [20000104] Order #: [id number]: 1 Prescriptions as of 04/17/2022 - Insulin Conover, Disposable, (PEN NEEDLE) 31 gauge x 3/16 Use as directed to inject insulin 5 times daily as directed. insulin: yes, E11.42 - insulin detemir U-100 (LEVEMIR FLEXTOUCH U-100 INSULIN) 100 unit/mL (3 mL) injection pen Inject 78 units subcutaneously in the AM, 85 units subcutaneously in the PM - cephALEXin (KEFLEX) 500 mg capsule Take 1 capsule by mouth four times daily for 10 days. - HUMALOG KWIKPEN INSULIN 200 unit/mL (3 mL) injection INJECT 50 UNITS SUBCUTANEOUSLY BEFORE BREAKFAST, 50 UNITS SUBCUTANEOUSLY BEFORE LUNCH, 50 UNITS SUBCUTANEOUSLY BEFORE DINNER. ADMINISTER THIS WITHIN 15 MINUTES BEFORE YOUR MEALS OR IMMEDIATELY AFTER YOUR MEALS. - furosemide (LASIX) 20 mg tablet Take 1 tablet by mouth once daily. - pregabalin (LYRICA) 75 mg capsule Take 1 capsule by mouth twice daily for 180 days. - metoprolol succinate ER (TOPROL XL) 25 mg 24 hr tablet Take 1 tablet by mouth every day - isosorbide mononitrate ER (IMDUR) 30 mg 24 hr tablet Take 1 tablet by mouth once daily. - nitroglycerin sublingual (NITROQUICK) 0.4 mg SL tablet Dissolve 1 tablet under the tongue as needed for chest pain. If no pain relief call 911. - ezetimibe (ZETIA) 10 mg tablet TAKE 1 TABLET BY MOUTH EVERY DAY - losartan (COZAAR) 50 mg tablet Take 1 tablet by mouth every day - atorvastatin (LIPITOR) 80 mg tablet Take 1 tablet by mouth every day - linaGLIPtin (TRADJENTA) 5 mg tab Take 1 tablet by mouth once daily. - fluticasone-vilanterol (BREO ELLIPTA) 200-25 mcg/dose inhaler Inhale 1 Inhalation as instructed once daily. - lancets 33 gauge - mupirocin (BACTROBAN) 2 % ointment as needed. - albuterol (PROVENTIL) 2.5 mg /3 mL (0.083 %) nebulizer solution Use 3 mL via nebulizer every 4 hours as needed for wheezing/shortness of breath. - albuterol HFA (PROVENTIL HFA, VENTOLIN HFA) 90 mcg/actuation inhaler Inhale 2 Puffs as instructed every 4 hours as needed for wheezing/shortness of breath. - flash glucose scanning reader (CourseWeaverSTYLE GABRIELLE 2 READER) 1 Each. Use as directed to check blood sugars 3 times daily. Scan FreeStyle Gabrielle 2 sensors at least every 8 hours. - flash glucose sensor (FREESTYLE GABRIELLE 2 SENSOR) kit 2 Each. Use as directed to check blood sugars 3 times daily. Scan FreeStyle Gabrielle 2 sensors at least every 8 hours. Replace sensor every 14 days. - omeprazole (PRILOSEC) 20 mg capsule Take 1 capsule by mouth once daily. - Lancets lancets Use as directed to check blood sugar 3 times daily, insulin: yes, E11.9 - Lancing Device (LANCING DEVICE WITH LANCETS) misc Use as directed to check blood sugar 3 times daily, insulin: yes, E11.9 - HYDROcodone-Acetaminoph en (NORCO) 7.5-325 mg per tablet Take 1 tablet by mouth once daily as needed for pain. - polyethylene glycol 3350 (MIRALAX, GLYCOLAX) 17 gram packet Take 1 Packet by mouth once daily as needed (constipation). - WALKER ROLLATOR SEAT WITH 6 WHEELS - RED Walker rollator with seat - aspirin, enteric coated (ASPIRIN LOW DOSE) 81 mg EC tablet Take 81 mg by mouth once daily. - ranolazine SR (RANEXA) 1,000 mg tab ER 12 hr Take 1,000 mg by mouth twice daily. Meds Comments as of 07/08/2021: 07/08/21 The medications are managed by this patient by: PATIENT Chiquita Bedolla adelita 02/10/21 The medications are managed by this patient by: PATIENT Chiquita Bedolla PharmD 12/03/20 The medications are managed by (more content not included)... Normal [facility]2022 [facility] KIMBERLY PATEL ([id number]) 1955 [address] [facility] Date Time Provider Department 04/11/22 FRANKIE DENG [facility] During your visit today, we recorded the following information about you: Nanette Hager 04/11/2022 8:25 AM Signed Please schedule a post ed visit KRISTIN Valdivia 04/11/2022 12:27 PM Signed Post ED visit scheduled with [employer]ATING [employer] on 04/14/22. KRISTIN Mccoy Allergies As of Date: 04/11/2022 Noted Allergy Reaction DILAUDID (HYDROMORPHONE (BULK)) 05/30/2012 11 - Vomiting JARDIANCE (EMPAGLIFLOZIN) 11/07/2021 14 - Other: See Comments Comments: UTI METFORMIN 05/30/2012 6 - Diarrhea MORPHINE 05/30/2012 11 - Vomiting ONDANSETRON 02/14/2021 16 - Unknown PENICILLINS 05/30/2012 2 - Rash TRULICITY (DULAGLUTIDE) 11/07/2021 8 - GI Upset Comments: Nausea/Vomiting Date Reviewed: 04/10/2022 Reviewed by: Jenna Rob RN - Fully Assessed Reason for Visit: POST ED [Other] Prescriptions as of 04/11/2022 - cephALEXin (KEFLEX) 500 mg capsule Take 1 capsule by mouth four times daily for 10 days. - HUMALOG KWIKPEN INSULIN 200 unit/mL (3 mL) injection INJECT 50 UNITS SUBCUTANEOUSLY BEFORE BREAKFAST, 50 UNITS SUBCUTANEOUSLY BEFORE LUNCH, 50 UNITS SUBCUTANEOUSLY BEFORE DINNER. ADMINISTER THIS WITHIN 15 MINUTES BEFORE YOUR MEALS OR IMMEDIATELY AFTER YOUR MEALS. - insulin needles, DISPOSABLE, (COMFORT EZ PEN NEEDLES) 31 gauge x 5/16 Use as directed to inject insulin 5 times daily as directed. insulin: yes, E11.42 - insulin detemir U-100 (LEVEMIR FLEXTOUCH U-100 INSULIN) 100 unit/mL (3 mL) injection pen Inject 78 units subcutaneously twice daily - furosemide (LASIX) 20 mg tablet Take 1 tablet by mouth once daily. - pregabalin (LYRICA) 75 mg capsule Take 1 capsule by mouth twice daily for 180 days. - metoprolol succinate ER (TOPROL XL) 25 mg 24 hr tablet Take 1 tablet by mouth every day - isosorbide mononitrate ER (IMDUR) 30 mg 24 hr tablet Take 1 tablet by mouth once daily. - nitroglycerin sublingual (NITROQUICK) 0.4 mg SL tablet Dissolve 1 tablet under the tongue as needed for chest pain. If no pain relief call 911. - ezetimibe (ZETIA) 10 mg tablet TAKE 1 TABLET BY MOUTH EVERY DAY - losartan (COZAAR) 50 mg tablet Take 1 tablet by mouth every day - atorvastatin (LIPITOR) 80 mg tablet Take 1 tablet by mouth every day - linaGLIPtin (TRADJENTA) 5 mg tab Take 1 tablet by mouth once daily. - fluticasone-vilanterol (BREO ELLIPTA) 200-25 mcg/dose inhaler Inhale 1 Inhalation as instructed once daily. - lancets 33 gauge - mupirocin (BACTROBAN) 2 % ointment as needed. - albuterol (PROVENTIL) 2.5 mg /3 mL (0.083 %) nebulizer solution Use 3 mL via nebulizer every 4 hours as needed for wheezing/shortness of breath. - albuterol HFA (PROVENTIL HFA, VENTOLIN HFA) 90 mcg/actuation inhaler Inhale 2 Puffs as instructed every 4 hours as needed for wheezing/shortness of breath. - flash glucose scanning reader (FREESTYLE GABRIELLE 2 READER) 1 Each. Use as directed to check blood sugars 3 times daily. Scan FreeStyle Gabrielle 2 sensors at least every 8 hours. - flash glucose sensor (FREESTYLE GABRIELLE 2 SENSOR) kit 2 Each. Use as directed to check blood sugars 3 times daily. Scan FreeStyle Gabrielle 2 sensors at least every 8 hours. Replace sensor every 14 days. - omeprazole (PRILOSEC) 20 mg capsule Take 1 capsule by mouth once daily. - Lancets lancets Use as directed to check blood sugar 3 times daily, insulin: yes, E11.9 - Lancing Device (LANCING DEVICE WITH LANCETS) [facility] Use as directed to check blood sugar 3 times daily, insulin: yes, E11.9 - HYDROcodone-Acetaminoph en (NORCO) 7.5-325 mg per tablet Take 1 tablet by mouth once daily as needed for pain. - polyethylene glycol 3350 (MIRALAX, GLYCOLAX) 17 gram packet Take 1 Packet by mouth once daily as needed (constipation). - WALKER ROLLATOR SEAT WITH 6 WHEELS - RED Walker rollator with seat - aspirin, enteric coated (ASPIRIN LOW DOSE) 81 mg EC tablet Take 81 mg by mouth once daily. - ranolazine SR (RANEXA) 1,000 mg tab ER 12 hr Take 1,000 mg by mouth twice daily. Meds Comments as of 07/08/2021: 07/08/21 The medications are managed by this patient by: PATIENT Chiquita Bedolla, [facility] 02/10/21 The medications are managed by this patient by: PATIENT Chiquita Bedolla, Angela 12/03/20 The medications are managed by this patient by: PATIENT Quique Guzmán, BooneD Problem List As Of Date 04/11/2022 Noted Resolved Heart disease (organic) [I51.9] 05/31/2012 08/26/2021 DIYA (obstructive sleep apnea) [G47.33] 05/31/2012 Dyspnea [R06.00] 05/31/2012 12/19/2021 Pneumonia due to COVID-19 virus [U07.1, J12.82] 10/13/2020 08/26/2021 CHF (congestive heart failure) (HCC) [I50.9] 10/17/2020 Type 2 diabetes mellitus with diabetic polyneur*10/17/2020 Present for a month [R73.9] 10/17/2020 08/26/2021 CHF, acu (more content not included)... [facility] KIMBERLY PATEL ([id number]) 1955 [facility] Date Time Provider Department 04/11/22 FRANKIE DENG [facility] During your visit today, we recorded the following information about you: Nanette Macedo Pss 04/11/2022 3:14 PM Signed Please schedule post ed with medics, visit was moved for [facility] Nanette Macedo Pss Huong Colin 04/11/2022 3:49 PM Signed Called to get patient scheduled for a medic visit for tomorrow 04/12 patient informed me that she is unable to be seen, until her daughter has an off day from work. Patient will give us a call when she's able to be scheduled for a visit. Huong Colin Allergies As of Date: 04/11/2022 Noted Allergy Reaction DILAUDID (HYDROMORPHONE (BULK)) 05/30/2012 11 - Vomiting JARDIANCE (EMPAGLIFLOZIN) 11/07/2021 14 - Other: See Comments Comments: UTI METFORMIN 05/30/2012 6 - Diarrhea MORPHINE 05/30/2012 11 - Vomiting ONDANSETRON 02/14/2021 16 - Unknown PENICILLINS 05/30/2012 2 - Rash TRULICITY (DULAGLUTIDE) 11/07/2021 8 - GI Upset Comments: Nausea/Vomiting Date Reviewed: 04/10/2022 Reviewed by: Jenna Rob RN - Fully Assessed Reason for Visit: Appointment [186] Prescriptions as of 04/11/2022 - cephALEXin (KEFLEX) 500 mg capsule Take 1 capsule by mouth four times daily for 10 days. - HUMALOG KWIKPEN INSULIN 200 unit/mL (3 mL) injection INJECT 50 UNITS SUBCUTANEOUSLY BEFORE BREAKFAST, 50 UNITS SUBCUTANEOUSLY BEFORE LUNCH, 50 UNITS SUBCUTANEOUSLY BEFORE DINNER. ADMINISTER THIS WITHIN 15 MINUTES BEFORE YOUR MEALS OR IMMEDIATELY AFTER YOUR MEALS. - insulin needles, DISPOSABLE, (COMFORT EZ PEN NEEDLES) 31 gauge x 5/16 Use as directed to inject insulin 5 times daily as directed. insulin: yes, E11.42 - insulin detemir U-100 (LEVEMIR FLEXTOUCH U-100 INSULIN) 100 unit/mL (3 mL) injection pen Inject 78 units subcutaneously twice daily - furosemide (LASIX) 20 mg tablet Take 1 tablet by mouth once daily. - pregabalin (LYRICA) 75 mg capsule Take 1 capsule by mouth twice daily for 180 days. - metoprolol succinate ER (TOPROL XL) 25 mg 24 hr tablet Take 1 tablet by mouth every day - isosorbide mononitrate ER (IMDUR) 30 mg 24 hr tablet Take 1 tablet by mouth once daily. - nitroglycerin sublingual (NITROQUICK) 0.4 mg SL tablet Dissolve 1 tablet under the tongue as needed for chest pain. If no pain relief call 911. - ezetimibe (ZETIA) 10 mg tablet TAKE 1 TABLET BY MOUTH EVERY DAY - losartan (COZAAR) 50 mg tablet Take 1 tablet by mouth every day - atorvastatin (LIPITOR) 80 mg tablet Take 1 tablet by mouth every day - linaGLIPtin (TRADJENTA) 5 mg tab Take 1 tablet by mouth once daily. - fluticasone-vilanterol (BREO ELLIPTA) 200-25 mcg/dose inhaler Inhale 1 Inhalation as instructed once daily. - lancets 33 gauge - mupirocin (BACTROBAN) 2 % ointment as needed. - albuterol (PROVENTIL) 2.5 mg /3 mL (0.083 %) nebulizer solution Use 3 mL via nebulizer every 4 hours as needed for wheezing/shortness of breath. - albuterol HFA (PROVENTIL HFA, VENTOLIN HFA) 90 mcg/actuation inhaler Inhale 2 Puffs as instructed every 4 hours as needed for wheezing/shortness of breath. - flash glucose scanning reader (FREESTYLE GABRIELLE 2 READER) 1 Each. Use as directed to check blood sugars 3 times daily. Scan FreeStyle Gabrielle 2 sensors at least every 8 hours. - flash glucose sensor (FREESTYLE GABRIELLE 2 SENSOR) kit 2 Each. Use as directed to check blood sugars 3 times daily. Scan FreeStyle Gabrielle 2 sensors at least every 8 hours. Replace sensor every 14 days. - omeprazole (PRILOSEC) 20 mg capsule Take 1 capsule by mouth once daily. - Lancets lancets Use as directed to check blood sugar 3 times daily, insulin: yes, E11.9 - Lancing Device (LANCING DEVICE WITH LANCETS) misc Use as directed to check blood sugar 3 times daily, insulin: yes, E11.9 - HYDROcodone-Acetaminoph en (NORCO) 7.5-325 mg per tablet Take 1 tablet by mouth once daily as needed for pain. - polyethylene glycol 3350 (MIRALAX, GLYCOLAX) 17 gram packet Take 1 Packet by mouth once daily as needed (constipation). - WALKER ROLLATOR SEAT WITH 6 WHEELS - RED Walker rollator with seat - aspirin, enteric coated (ASPIRIN LOW DOSE) 81 mg EC tablet Take 81 mg by mouth once daily. - ranolazine SR (RANEXA) 1,000 mg tab ER 12 hr Take 1,000 mg by mouth twice daily. Meds Comments as of 07/08/2021: 07/08/21 The medications are managed by this patient by: LUIS ALBERTO Bedolla RPh 02/10/21 The medications are managed by this patient by: PATIENT Chiquita Bedolla PharmD 12/03/20 The medications are managed by this patient by: PATIENT Quique Goll, PharmD Problem List As Of Date 04/11/2022 Noted Resolved Heart disease (organic) [I51.9] 05/31/2012 08/26/2021 DIYA (obstructive sleep apnea) [G47.33] 05/31/2012 Dyspnea [R06.00] 05/31/2012 12/19/2021 Pneumonia due to COVID-19 virus [U07.1, J12.82] (more content not included)... Normal [facility] 03-28-2022 [facility] Telephone ([facility]) KIMBERLY PATEL ([id number]) 1955 [facility] Date Time Provider Department 03/28/22 FRANKIE DENG [facility] During your visit today, we recorded the following information about you: June Oro Ma 03/28/2022 9:08 AM Signed The following lab order was sent via e-mail to [facility] on 03/28/2022: PATIENT NAME: Kimberly Patel ADDRESS: [address] [place] [address] PHONE NUMBER: [phone] (home) [phone] (cell) DATE OF : 1955 [facility] ORDERING PROVIDER: Frankie Deng MD LAB TESTS: CBC- Diagnosis [E11.42, Z79.4] CMP - Diagnosis [E11.42, Z79.4] HgbA1C - Diagnosis [E11.42, Z79.4] Lipid panel Nonfasting - Diagnosis [E11.42, Z79.4] TSH - Diagnosis [I10] REQUESTED DATE OF COLLECTION: to be collected by 04/03 SPECIFIC SPECIMEN DRAW INFORMATION: N/A June Oro Ma Allergies As of Date: 03/28/2022 Noted Allergy Reaction DILAUDID (HYDROMORPHONE (BULK)) 05/30/2012 11 - Vomiting JARDIANCE (EMPAGLIFLOZIN) 11/07/2021 14 - Other: See Comments Comments: UTI METFORMIN 05/30/2012 6 - Diarrhea MORPHINE 05/30/2012 11 - Vomiting ONDANSETRON 02/14/2021 16 - Unknown PENICILLINS 05/30/2012 2 - Rash TRULICITY (DULAGLUTIDE) 11/07/2021 8 - GI Upset Comments: Nausea/Vomiting Date Reviewed: 03/22/2022 Reviewed by: Susan Cuello [facility] - Fully Assessed Reason for Visit: [facility] [Other] Prescriptions as of 03/28/2022 - insulin needles, DISPOSABLE, (COMFORT EZ PEN NEEDLES) 31 gauge x 5/16 Use as directed to inject insulin 5 times daily as directed. insulin: yes, E11.42 - insulin detemir U-100 (LEVEMIR FLEXTOUCH U-100 INSULIN) 100 unit/mL (3 mL) injection pen Inject 78 units subcutaneously twice daily - insulin lispro (HUMALOG KWIKPEN INSULIN) 200 unit/mL (3 mL) injection Inject 50 units subcutaneously before breakfast, 50 units subcutaneously before lunch, 50 units subcutaneously before dinner. Administer this within 15 minutes before your meals or immediately after your meals. - furosemide (LASIX) 20 mg tablet Take 1 tablet by mouth once daily. - pregabalin (LYRICA) 75 mg capsule Take 1 capsule by mouth twice daily for 180 days. - metoprolol succinate ER (TOPROL XL) 25 mg 24 hr tablet Take 1 tablet by mouth every day - isosorbide mononitrate ER (IMDUR) 30 mg 24 hr tablet Take 1 tablet by mouth once daily. - nitroglycerin sublingual (NITROQUICK) 0.4 mg SL tablet Dissolve 1 tablet under the tongue as needed for chest pain. If no pain relief call 911. - ezetimibe (ZETIA) 10 mg tablet TAKE 1 TABLET BY MOUTH EVERY DAY - losartan (COZAAR) 50 mg tablet Take 1 tablet by mouth every day - atorvastatin (LIPITOR) 80 mg tablet Take 1 tablet by mouth every day - linaGLIPtin (TRADJENTA) 5 mg tab Take 1 tablet by mouth once daily. - fluticasone-vilanterol (BREO ELLIPTA) 200-25 mcg/dose inhaler Inhale 1 Inhalation as instructed once daily. - lancets 33 gauge - mupirocin (BACTROBAN) 2 % ointment as needed. - albuterol (PROVENTIL) 2.5 mg /3 mL (0.083 %) nebulizer solution Use 3 mL via nebulizer every 4 hours as needed for wheezing/shortness of breath. - albuterol HFA (PROVENTIL HFA, VENTOLIN HFA) 90 mcg/actuation inhaler Inhale 2 Puffs as instructed every 4 hours as needed for wheezing/shortness of breath. - flash glucose scanning reader (FREESTYLE GABRIELLE 2 READER) 1 Each. Use as directed to check blood sugars 3 times daily. Scan FreeStyle Gabrielle 2 sensors at least every 8 hours. - flash glucose sensor (FREESTYLE GABRIELLE 2 SENSOR) kit 2 Each. Use as directed to check blood sugars 3 times daily. Scan FreeStyle Gabrielle 2 sensors at least every 8 hours. Replace sensor every 14 days. - omeprazole (PRILOSEC) 20 mg capsule Take 1 capsule by mouth once daily. - Lancets lancets Use as directed to check blood sugar 3 times daily, insulin: yes, E11.9 - Lancing Device (LANCING DEVICE WITH LANCETS) misc Use as directed to check blood sugar 3 times daily, insulin: yes, E11.9 - HYDROcodone-Acetaminoph en (NORCO) 7.5-325 mg per tablet Take 1 tablet by mouth once daily as needed for pain. - polyethylene glycol 3350 (MIRALAX, GLYCOLAX) 17 gram packet Take 1 Packet by mouth once daily as needed (constipation). - WALKER ROLLATOR SEAT WITH 6 WHEELS - RED Walker rollator with seat - aspirin, enteric coated (ASPIRIN LOW DOSE) 81 mg EC tablet Take 81 mg by mouth once daily. - ranolazine SR (RANEXA) 1,000 mg tab ER 12 hr Take 1,000 mg by mouth twice daily. Meds Comments as of 07/08/2021: 07/08/21 The medications are managed by this patient by: LUIS ALBERTO Bedolla RPh 02/10/21 The medications are managed by this patient by: PATIENT Chiquita Bedolla PharmD 12/03/20 The medications are managed by this patient by: PATIENT Quique Guzmán PharmD Problem List As Of Date 03/28/2022 Noted Resolved Hea (more content not included)... Normal [facility] CNPEstrellita 03-24-2022 CNPN Telephone ([facility]) KIMBERLY PATEL ([id number]) 1955 [facility] Date Time Provider Department 03/24/22 FRANKIE DENG [facility] During your visit today, we recorded the following information about you: Clovis Alarcon MA 03/24/2022 12:33 PM Signed Hema from respiratory called stating patient needs requalification for oxygen. She's requesting to have PCP sign and date note from 03/22 in system and new rx for oxygen. Hema [phone] option 2 Clovis Deng MD 03/25/2022 3:37 PM Signed Noted completed. O2 orders submitted. Thanks. Emerald Lovell MA 03/28/2022 10:53 AM Signed I have faxed the orders and the visit notes to [facility] RT. Emerald Lovell CMA Allergies As of Date: 03/24/2022 Noted Allergy Reaction DILAUDID (HYDROMORPHONE (BULK)) 05/30/2012 11 - Vomiting JARDIANCE (EMPAGLIFLOZIN) 11/07/2021 14 - Other: See Comments Comments: UTI METFORMIN 05/30/2012 6 - Diarrhea MORPHINE 05/30/2012 11 - Vomiting ONDANSETRON 02/14/2021 16 - Unknown PENICILLINS 05/30/2012 2 - Rash TRULICITY (DULAGLUTIDE) 11/07/2021 8 - GI Upset Comments: Nausea/Vomiting Date Reviewed: 03/22/2022 Reviewed by: Susan Cuello [facility] - Fully Assessed Reason for Visit: DME Order [Other] Cmt: oxygen Prescriptions as of 03/28/2022 - HUMALOG KWIKPEN INSULIN 200 unit/mL (3 mL) injection INJECT 50 UNITS SUBCUTANEOUSLY BEFORE BREAKFAST, 50 UNITS SUBCUTANEOUSLY BEFORE LUNCH, 50 UNITS SUBCUTANEOUSLY BEFORE DINNER. ADMINISTER THIS WITHIN 15 MINUTES BEFORE YOUR MEALS OR IMMEDIATELY AFTER YOUR MEALS. - insulin needles, DISPOSABLE, (COMFORT EZ PEN NEEDLES) 31 gauge x 5/16 Use as directed to inject insulin 5 times daily as directed. insulin: yes, E11.42 - insulin detemir U-100 (LEVEMIR FLEXTOUCH U-100 INSULIN) 100 unit/mL (3 mL) injection pen Inject 78 units subcutaneously twice daily - furosemide (LASIX) 20 mg tablet Take 1 tablet by mouth once daily. - pregabalin (LYRICA) 75 mg capsule Take 1 capsule by mouth twice daily for 180 days. - metoprolol succinate ER (TOPROL XL) 25 mg 24 hr tablet Take 1 tablet by mouth every day - isosorbide mononitrate ER (IMDUR) 30 mg 24 hr tablet Take 1 tablet by mouth once daily. - nitroglycerin sublingual (NITROQUICK) 0.4 mg SL tablet Dissolve 1 tablet under the tongue as needed for chest pain. If no pain relief call 911. - ezetimibe (ZETIA) 10 mg tablet TAKE 1 TABLET BY MOUTH EVERY DAY - losartan (COZAAR) 50 mg tablet Take 1 tablet by mouth every day - atorvastatin (LIPITOR) 80 mg tablet Take 1 tablet by mouth every day - linaGLIPtin (TRADJENTA) 5 mg tab Take 1 tablet by mouth once daily. - fluticasone-vilanterol (BREO ELLIPTA) 200-25 mcg/dose inhaler Inhale 1 Inhalation as instructed once daily. - lancets 33 gauge - mupirocin (BACTROBAN) 2 % ointment as needed. - albuterol (PROVENTIL) 2.5 mg /3 mL (0.083 %) nebulizer solution Use 3 mL via nebulizer every 4 hours as needed for wheezing/shortness of breath. - albuterol HFA (PROVENTIL HFA, VENTOLIN HFA) 90 mcg/actuation inhaler Inhale 2 Puffs as instructed every 4 hours as needed for wheezing/shortness of breath. - flash glucose scanning reader (FREESTYLE GABRIELLE 2 READER) 1 Each. Use as directed to check blood sugars 3 times daily. Scan FreeStyle Gabrielle 2 sensors at least every 8 hours. - flash glucose sensor (FREESTYLE GABRIELLE 2 SENSOR) kit 2 Each. Use as directed to check blood sugars 3 times daily. Scan FreeStyle Gabrielle 2 sensors at least every 8 hours. Replace sensor every 14 days. - omeprazole (PRILOSEC) 20 mg capsule Take 1 capsule by mouth once daily. - Lancets lancets Use as directed to check blood sugar 3 times daily, insulin: yes, E11.9 - Lancing Device (LANCING DEVICE WITH LANCETS) misc Use as directed to check blood sugar 3 times daily, insulin: yes, E11.9 - HYDROcodone-Acetaminoph en (NORCO) 7.5-325 mg per tablet Take 1 tablet by mouth once daily as needed for pain. - polyethylene glycol 3350 (MIRALAX, GLYCOLAX) 17 gram packet Take 1 Packet by mouth once daily as needed (constipation). - WALKER ROLLATOR SEAT WITH 6 WHEELS - RED Walker rollator with seat - aspirin, enteric coated (ASPIRIN LOW DOSE) 81 mg EC tablet Take 81 mg by mouth once daily. - ranolazine SR (RANEXA) 1,000 mg tab ER 12 hr Take 1,000 mg by mouth twice daily. Meds Comments as of 07/08/2021: 07/08/21 The medications are managed by this patient by: PATIENT Chiquita Bedolla adelita 02/10/21 The medications are managed by this patient by: PATIENT Chiquita Bedolla PharmD 12/03/20 The medications are managed by this patient by: PATIENT Quique Guzmán, Angela Problem List As Of Date 03/24/2022 Noted Resolved Heart disease (organic) [I51.9] 05/31/2012 08/26/2021 DIYA (obstructive sleep apnea) [G47.33] 05/31/2012 Dyspnea [R06.00] 05/31/2012 12/19/2021 Pneumonia due to COVID-19 virus [U07.1, J12.82] (more content not included)... Normal [facility] Lidia 03-23-2022 CNPN Telephone ([facility]) KIMBERLY PATEL ([id number]) 1955 [facility] Date Time Provider Department 03/23/22 SHEREE AVENDANO During your visit today, we recorded the following information about you: SAL Manuel 03/23/2022 10:17 AM Addendum Welcome Home Call: a. Date and Time: 10:11 AM 03/23/2022 b. Contact name/relationship: Kimberly caldwell.Have you been active with any Home Care company in the last 60 days? No. d. Are you interesting in initiated services with [facility]? yes (yes or no) e. Do you have any upcoming appointments in the next few days, or restrictions to your schedule? no f. We would come to see you in 24-48* from your discharge today; Are you agreeable to a visit in that time frame? Yes--Daughter has to be present so appts needs to be agreeable to her schedule. (Yes/ No (if no, when would you like to be seen?)) Please keep our your medications both over the counter and prescribed out for the home care to review, your hospital discharge instructions and write down any questions you might have. Our clinicians will call you the night before or the morning of the appointment. Their # may come up restricted but they'll leave a VM for you. In case you have any questions or concerns in the meantime, our # is [phone], option 1 (need to confirm) Thank you for your time and have a great day. SAL Manuel Allergies As of Date: 03/23/2022 Noted Allergy Reaction DILAUDID (HYDROMORPHONE (BULK)) 05/30/2012 11 - Vomiting JARDIANCE (EMPAGLIFLOZIN) 11/07/2021 14 - Other: See Comments Comments: UTI METFORMIN 05/30/2012 6 - Diarrhea MORPHINE 05/30/2012 11 - Vomiting ONDANSETRON 02/14/2021 16 - Unknown PENICILLINS 05/30/2012 2 - Rash TRULICITY (DULAGLUTIDE) 11/07/2021 8 - GI Upset Comments: Nausea/Vomiting Date Reviewed: 03/22/2022 Reviewed by: Susan Cuello [facility] - Fully Assessed Reason for Visit: Home Care [4073] Cmt: Confirmation Call Prescriptions as of 03/23/2022 - insulin needles, DISPOSABLE, (COMFORT EZ PEN NEEDLES) 31 gauge x 5/16 Use as directed to inject insulin 5 times daily as directed. insulin: yes, E11.42 - insulin detemir U-100 (LEVEMIR FLEXTOUCH U-100 INSULIN) 100 unit/mL (3 mL) injection pen Inject 78 units subcutaneously twice daily - insulin lispro (HUMALOG KWIKPEN INSULIN) 200 unit/mL (3 mL) injection Inject 50 units subcutaneously before breakfast, 50 units subcutaneously before lunch, 50 units subcutaneously before dinner. Administer this within 15 minutes before your meals or immediately after your meals. - furosemide (LASIX) 20 mg tablet Take 1 tablet by mouth once daily. - pregabalin (LYRICA) 75 mg capsule Take 1 capsule by mouth twice daily for 180 days. - metoprolol succinate ER (TOPROL XL) 25 mg 24 hr tablet Take 1 tablet by mouth every day - isosorbide mononitrate ER (IMDUR) 30 mg 24 hr tablet Take 1 tablet by mouth once daily. - nitroglycerin sublingual (NITROQUICK) 0.4 mg SL tablet Dissolve 1 tablet under the tongue as needed for chest pain. If no pain relief call 911. - ezetimibe (ZETIA) 10 mg tablet TAKE 1 TABLET BY MOUTH EVERY DAY - losartan (COZAAR) 50 mg tablet Take 1 tablet by mouth every day - atorvastatin (LIPITOR) 80 mg tablet Take 1 tablet by mouth every day - linaGLIPtin (TRADJENTA) 5 mg tab Take 1 tablet by mouth once daily. - fluticasone-vilanterol (BREO ELLIPTA) 200-25 mcg/dose inhaler Inhale 1 Inhalation as instructed once daily. - lancets 33 gauge - mupirocin (BACTROBAN) 2 % ointment as needed. - albuterol (PROVENTIL) 2.5 mg /3 mL (0.083 %) nebulizer solution Use 3 mL via nebulizer every 4 hours as needed for wheezing/shortness of breath. - albuterol HFA (PROVENTIL HFA, VENTOLIN HFA) 90 mcg/actuation inhaler Inhale 2 Puffs as instructed every 4 hours as needed for wheezing/shortness of breath. - flash glucose scanning reader (CourseWeaverSTYLE GABRIELLE 2 READER) 1 Each. Use as directed to check blood sugars 3 times daily. Scan FreeStyle Gabrielle 2 sensors at least every 8 hours. - flash glucose sensor (FREESTYLE GABRIELLE 2 SENSOR) kit 2 Each. Use as directed to check blood sugars 3 times daily. Scan FreeStyle Gabrielle 2 sensors at least every 8 hours. Replace sensor every 14 days. - omeprazole (PRILOSEC) 20 mg capsule Take 1 capsule by mouth once daily. - Lancets lancets Use as directed to check blood sugar 3 times daily, insulin: yes, E11.9 - Lancing Device (LANCING DEVICE WITH LANCETS) misc Use as directed to check blood sugar 3 times daily, insulin: yes, E11.9 - HYDROcodone-Acetaminoph en (NORCO) 7.5-325 mg per tablet Take 1 tablet by mouth once daily as needed for pain. - polyethylene glycol 3350 (MIRALAX, GLYCOLAX) 17 gram packet Take 1 Packet by mouth once daily as needed (constipation). - WALKER ROLLATOR SEAT WITH 6 WHEELS - RED Walker rollator with seat - aspirin, enteric coated (ASPIRIN LOW DOSE) 81 mg EC table (more content not included)... Normal [facility] Lidia 03-09-2022 CNPN Telephone [facility] KIMBERLY PATEL ([id number]) 1955 [facility] Date Time Provider Department 03/09/22 MERISSA CISNEROS [facility] During your visit today, we recorded the following information about you: Merissa Cisneros, KRISTIN 03/09/2022 2:13 PM Signed [facility] is currently providing your patient with Oxygen. At this time the patient needs re-qualified for insurance coverage. The patient has an appointment scheduled with you 03/14/22. To continue providing oxygen for the patient the following is needed: A face to face visit within the last 30 days documenting a chronic lung disease, symptoms and need to continue with oxygen therapy. Oxygen testing to state- Room air at rest, Room air with exertion and Exertion while wearing oxygen. You can add the SmartText '[id number]' to your office note to meet the insurance requirements. Oxygen prescription to include- Oxygen with portability, liter flow, duration (continuous, exertion, nocturnal,) nasal cannula, NPI, date and signature. Any hand written additions to the current script need to be signed and dated. All criteria is needed within 30 days of each other, with the script being after the face to face visit. Once the above criteria is received we can continue processing your request. Thank you, [facility] [phone] fax Frankie Deng MD 03/20/2022 10:00 PM Signed Will address at 03/22 visit. KRISTIN Muro 03/23/2022 12:[address] afternoon Dr Deng, we are in need of re qualification documentation to continue to supply oxygen for your patent, please sign and date your progress note on 03/22/22 and also for a new script and testing. Thank you Steve Cortes [phone] Luke Sanches MA 03/24/2022 12:21 PM Signed Received a call from patient inquiring about oxygen tank. Kimberly [phone] Luke Deng MD 03/25/2022 3:37 PM Signed Noted completed. O2 orders placed. Thanks. Chanell Samuel 03/28/2022 10:57 AM Signed Order, demo and office notes all faxed successfully to [phone] Chanell Samuel March 28, 2022 10:57 AM Allergies As of Date: 03/09/2022 Noted Allergy Reaction DILAUDID (HYDROMORPHONE (BULK)) 05/30/2012 11 - Vomiting JARDIANCE (EMPAGLIFLOZIN) 11/07/2021 14 - Other: See Comments Comments: UTI METFORMIN 05/30/2012 6 - Diarrhea MORPHINE 05/30/2012 11 - Vomiting ONDANSETRON 02/14/2021 16 - Unknown PENICILLINS 05/30/2012 2 - Rash TRULICITY (DULAGLUTIDE) 11/07/2021 8 - GI Upset Comments: Nausea/Vomiting Date Reviewed: 02/27/2022 Reviewed by: Deniz Silva MD - Fully Assessed Reason for Visit: Oxygen [3494] Prescriptions as of 03/28/2022 - NANNETTE MORRISPEN INSULIN 200 unit/mL (3 mL) injection INJECT 50 UNITS SUBCUTANEOUSLY BEFORE BREAKFAST, 50 UNITS SUBCUTANEOUSLY BEFORE LUNCH, 50 UNITS SUBCUTANEOUSLY BEFORE DINNER. ADMINISTER THIS WITHIN 15 MINUTES BEFORE YOUR MEALS OR IMMEDIATELY AFTER YOUR MEALS. - insulin needles, DISPOSABLE, (COMFORT EZ PEN NEEDLES) 31 gauge x 5/16 Use as directed to inject insulin 5 times daily as directed. insulin: yes, E11.42 - insulin detemir U-100 (LEVEMIR FLEXTOUCH U-100 INSULIN) 100 unit/mL (3 mL) injection pen Inject 78 units subcutaneously twice daily - furosemide (LASIX) 20 mg tablet Take 1 tablet by mouth once daily. - pregabalin (LYRICA) 75 mg capsule Take 1 capsule by mouth twice daily for 180 days. - metoprolol succinate ER (TOPROL XL) 25 mg 24 hr tablet Take 1 tablet by mouth every day - isosorbide mononitrate ER (IMDUR) 30 mg 24 hr tablet Take 1 tablet by mouth once daily. - nitroglycerin sublingual (NITROQUICK) 0.4 mg SL tablet Dissolve 1 tablet under the tongue as needed for chest pain. If no pain relief call 911. - ezetimibe (ZETIA) 10 mg tablet TAKE 1 TABLET BY MOUTH EVERY DAY - losartan (COZAAR) 50 mg tablet Take 1 tablet by mouth every day - atorvastatin (LIPITOR) 80 mg tablet Take 1 tablet by mouth every day - linaGLIPtin (TRADJENTA) 5 mg tab Take 1 tablet by mouth once daily. - fluticasone-vilanterol (BREO ELLIPTA) 200-25 mcg/dose inhaler Inhale 1 Inhalation as instructed once daily. - lancets 33 gauge - mupirocin (BACTROBAN) 2 % ointment as needed. - albuterol (PROVENTIL) 2.5 mg /3 mL (0.083 %) nebulizer solution Use 3 mL via nebulizer every 4 hours as needed for wheezing/shortness of breath. - albuterol HFA (PROVENTIL HFA, VENTOLIN HFA) 90 mcg/actuation inhaler Inhale 2 Puffs as instructed every 4 hours as needed for wheezing/shortness of breath. - flash glucose scanning reader (CourseWeaverSTYLE GABRIELLE 2 READER) 1 Each. Use as directed to check blood sugars 3 times daily. Scan FreeStyle Gabrielle 2 sensors at least every 8 hours. - flash glucose sensor (FREESTYLE GABRIELLE 2 SENSOR) kit 2 Each. Use as directed to check blood sugars 3 times daily. Scan FreeStyle Gabrielle 2 sensors at [facility] (more content not included)... Normal [facility] CNPNon 02-28-2022 CNPN Telephone ([facility]PH[facility]) KIMBERLY PATEL ([id number]) 1955 [facility] Date Time Provider Department 02/28/22 MOE MEYER During your visit today, we recorded the following information about you: Elis Harvey Pss 02/28/2022 4:03 PM Signed Patient requesting Susan call her directly, please advise. Susan Cuello [facility] 02/28/2022 4:44 PM Signed Returned patients call as requested. Reports her daughter aided in applying her next CGM sensor. Has worn this ~3 days at this time and would like for me to review prior to next pharmD fern next week. Admits to forgetting ~2 doses of her Humalog (with lunch or dinner) per week Has had a recent increase in sweets (cake and ice cream); granddaughter's birthday recently Had a Pepsi last night though reports having very infrequently (less than 2 times per month) Will increase basal and bolus insulin by ~20% at this time to aid in BG control. Re-discussed importance of taking insulin appropriately and improve freq. Plan: ? INCREASE Levemir to 55 units SQ BID ? INCREASE Humalog to 35 units TID SQ AC meals and improve freq of use ? Continue linagliptin 5 mg daily Patient verbalized understanding and denied and further questions or concerns. Thank you, Susan Cuello, PharmD Allergies As of Date: 02/28/2022 Noted Allergy Reaction DILAUDID (HYDROMORPHONE (BULK)) 05/30/2012 11 - Vomiting JARDIANCE (EMPAGLIFLOZIN) 11/07/2021 14 - Other: See Comments Comments: UTI METFORMIN 05/30/2012 6 - Diarrhea MORPHINE 05/30/2012 11 - Vomiting ONDANSETRON 02/14/2021 16 - Unknown PENICILLINS 05/30/2012 2 - Rash TRULICITY (DULAGLUTIDE) 11/07/2021 8 - GI Upset Comments: Nausea/Vomiting Date Reviewed: 02/27/2022 Reviewed by: Deniz Silva MD - Fully Assessed Reason for Visit: Patient Update [1234] Medication Follow-up [270] Order(s):insulin detemir U-100 (LEVEMIR FLEXTOUCH U-100 INSULIN) 100 unit/mL (3 mL) injection penInject 55 units subcutaneously twice dailyDisp: Rfl: insulin lispro (HUMALOG KWIKPEN INSULIN) 100 unit/mLInject 35 units subcutaneously before breakfast, 35 units subcutaneously before lunch, 35 units subcutaneously before dinner. Administer this within 15 minutes before your meals or immediately after your meals.Disp: Rfl: Prescriptions as of 02/28/2022 - insulin detemir U-100 (LEVEMIR FLEXTOUCH U-100 INSULIN) 100 unit/mL (3 mL) injection pen Inject 55 units subcutaneously twice daily - insulin lispro (HUMALOG KWIKPEN INSULIN) 100 unit/mL Inject 35 units subcutaneously before breakfast, 35 units subcutaneously before lunch, 35 units subcutaneously before dinner. Administer this within 15 minutes before your meals or immediately after your meals. - isosorbide mononitrate ER (IMDUR) 30 mg 24 hr tablet Take 1 tablet by mouth once daily. - nitroglycerin sublingual (NITROQUICK) 0.4 mg SL tablet Dissolve 1 tablet under the tongue as needed for chest pain. If no pain relief call 911. - ezetimibe (ZETIA) 10 mg tablet TAKE 1 TABLET BY MOUTH EVERY DAY - losartan (COZAAR) 50 mg tablet Take 1 tablet by mouth every day - atorvastatin (LIPITOR) 80 mg tablet Take 1 tablet by mouth every day - pregabalin (LYRICA) 75 mg capsule Take 1 capsule by mouth twice daily for 30 days. - linaGLIPtin (TRADJENTA) 5 mg tab Take 1 tablet by mouth once daily. - metoprolol succinate ER (TOPROL XL) 25 mg 24 hr tablet Take 1 tablet by mouth once daily. - fluticasone-vilanterol (BREO ELLIPTA) 200-25 mcg/dose inhaler Inhale 1 Inhalation as instructed once daily. - lancets 33 gauge - mupirocin (BACTROBAN) 2 % ointment as needed. - furosemide (LASIX) 20 mg tablet Take 20 mg by mouth once daily. - albuterol (PROVENTIL) 2.5 mg /3 mL (0.083 %) nebulizer solution Use 3 mL via nebulizer every 4 hours as needed for wheezing/shortness of breath. - albuterol HFA (PROVENTIL HFA, VENTOLIN HFA) 90 mcg/actuation inhaler Inhale 2 Puffs as instructed every 4 hours as needed for wheezing/shortness of breath. - pen needle, diabetic (COMFORT EZ PEN NEEDLES) 32 gauge x 3/16 ndle Use as directed to inject insulin 5 times daily as directed. insulin: yes, E11.42 - flash glucose scanning reader (FREESTYLE GABRIELLE 2 READER) 1 Each. Use as directed to check blood sugars 3 times daily. Scan FreeStyle Gabrielle 2 sensors at least every 8 hours. - flash glucose sensor (FREESTYLE GABRIELLE 2 SENSOR) kit 2 Each. Use as directed to check blood sugars 3 times daily. Scan FreeStyle Gabrielle 2 sensors at least every 8 hours. Replace sensor every 14 days. - omeprazole (PRILOSEC) 20 mg capsule Take 1 capsule by mouth once daily. - Lancets lancets Use as directed to check blood sugar 3 times daily, insulin: yes, E11.9 - Lancing Device (LANCING DEVICE WITH LANCETS) [facility] Use as directed to check blood sugar 3 times daily, insulin: yes, E11.9 - HYDROcodone-Acetaminoph en (NORCO) 7.5-325 mg per tablet (more content not included)... Normal [facility] Lidia 01-23-2022 HEATHERN Telephone ([facility] KIMBERLY PATEL ([id number]) 1955 [facility] Date Time Provider Department 01/23/22 SUSAN CUELLOW During your visit today, we recorded the following information about you: Susan Cuello [facility] 01/23/2022 4:41 PM Signed Pt contacted office requesting to speak with pharmD (myself) directly. Returned pt's call who provided an update that her insurance has not yet received CGM request from [employer]. Advised pt that her recent chart notes were faxed to [employer] by both myself and Dr. Meyer's office on 01/06/22 and 01/12/22, respectively. Encouraged pt to contact [employer] as they may be awaiting confirmation from her (phone: ) of which she plans to do at this time. Thank you, Susan Cuello PharmD Allergies As of Date: 01/23/2022 Noted Allergy Reaction DILAUDID (HYDROMORPHONE (BULK)) 05/30/2012 11 - Vomiting JARDIANCE (EMPAGLIFLOZIN) 11/07/2021 14 - Other: See Comments Comments: UTI METFORMIN 05/30/2012 6 - Diarrhea MORPHINE 05/30/2012 11 - Vomiting ONDANSETRON 02/14/2021 16 - Unknown PENICILLINS 05/30/2012 2 - Rash TRULICITY (DULAGLUTIDE) 11/07/2021 8 - GI Upset Comments: Nausea/Vomiting Date Reviewed: 01/18/2022 Reviewed by: Travis House, ROYCE - Fully Assessed Reason for Visit: Patient Update [1234] Prescriptions as of 01/23/2022 - insulin detemir U-100 (LEVEMIR FLEXTOUCH U-100 INSULIN) 100 unit/mL (3 mL) injection pen Inject 46 units subcutaneously twice daily - insulin lispro (HUMALOG KWIKPEN INSULIN) 100 unit/mL Inject 29 units subcutaneously before breakfast, 29 units subcutaneously before lunch, 29 units subcutaneously before dinner. Administer this within 15 minutes before your meals or immediately after your meals. - linaGLIPtin (TRADJENTA) 5 mg tab Take 1 tablet by mouth once daily. - metoprolol succinate ER (TOPROL XL) 25 mg 24 hr tablet Take 1 tablet by mouth once daily. - ezetimibe (ZETIA) 10 mg tablet TAKE 1 TABLET BY MOUTH EVERY DAY - clopidogrel (PLAVIX) 75 mg tablet TAKE 1 TABLET BY MOUTH EVERY DAY - fluticasone-vilanterol (BREO ELLIPTA) 200-25 mcg/dose inhaler Inhale 1 Inhalation as instructed once daily. - lancets 33 gauge - isosorbide dinitrate (ISORDIL, SORBITRATE) 30 mg tablet - mupirocin (BACTROBAN) 2 % ointment as needed. - GAS RELIEF, SIMETHICONE, 80 mg chewable tablet - furosemide (LASIX) 20 mg tablet - ranolazine ER (RANEXA) 500 mg 12 hr tablet - albuterol (PROVENTIL) 2.5 mg /3 mL (0.083 %) nebulizer solution Use 3 mL via nebulizer every 4 hours as needed for wheezing/shortness of breath. - albuterol HFA (PROVENTIL HFA, VENTOLIN HFA) 90 mcg/actuation inhaler Inhale 2 Puffs as instructed every 4 hours as needed for wheezing/shortness of breath. - pen needle, diabetic (COMFORT EZ PEN NEEDLES) 32 gauge x 3/16 ndle Use as directed to inject insulin 5 times daily as directed. insulin: yes, E11.42 - flash glucose scanning reader (FREESTYLE GABRIELLE 2 READER) 1 Each. Use as directed to check blood sugars 3 times daily. Scan FreeStyle Gabrielle 2 sensors at least every 8 hours. - flash glucose sensor (FREESTYLE GABRIELLE 2 SENSOR) kit 2 Each. Use as directed to check blood sugars 3 times daily. Scan FreeStyle Gabrielle 2 sensors at least every 8 hours. Replace sensor every 14 days. - omeprazole (PRILOSEC) 20 mg capsule Take 1 capsule by mouth once daily. - atorvastatin (LIPITOR) 80 mg tablet Take 1 tablet by mouth once daily. - losartan (COZAAR) 50 mg tablet Take 1 tablet by mouth once daily. - Lancets lancets Use as directed to check blood sugar 3 times daily, insulin: yes, E11.9 - Lancing Device (LANCING DEVICE WITH LANCETS) [facility] Use as directed to check blood sugar 3 times daily, insulin: yes, E11.9 - pregabalin (LYRICA) 75 mg capsule Take 1 capsule by mouth twice daily for 180 days. - HYDROcodone-Acetaminoph en (NORCO) 7.5-325 mg per tablet Take 1 tablet by mouth once daily as needed for pain. - isosorbide mononitrate ER (IMDUR) 30 mg 24 hr tablet Take 1 tablet by mouth once daily. - nitroglycerin sublingual (NITROQUICK) 0.4 mg SL tablet Dissolve 1 tablet under the tongue as needed for Chest Pain. If no pain relief call 911. - polyethylene glycol 3350 (MIRALAX, GLYCOLAX) 17 gram packet Take 1 Packet by mouth once daily as needed (constipation). - Multivitamins-Minerals- Lutein (MULTIVITAMIN 50 PLUS) tab Take 1 tablet by mouth once daily. - WALKER ROLLATOR SEAT WITH 6 WHEELS - RED Walker rollator with seat - aspirin, enteric coated (ASPIRIN LOW DOSE) 81 mg EC tablet Take 81 mg by mouth once daily. - ranolazine SR (RANEXA) 1,000 mg tab ER 12 hr Take 1,000 mg by mouth twice daily. Meds Comments as of 07/08/2021: 07/08/21 The medications are managed by this patient by: PATIENT Chiquita Bedolla [facility] 02/10/21 The medications are managed by this patient by: PATIENT Chiquita Rosario (more content not included)... Normal [facility] Lidia 01-10-2022 WILFRIDO Telephone ([facility]) KIMBERLY PATEL ([id number]) 1955 [address] [facility] Date Time Provider Department 01/10/22 GERSON DANIELS [facility] During your visit today, we recorded the following information about you: Gerson Daniels 01/10/2022 3:42 PM Signed For [facility] to provide oxygen for the patient the following is needed: A face to face office visit within the last 30 days documenting a chronic lung disease, symptoms, need for oxygen therapy and other methods have been tried and failed prior to initiating oxygen. Oxygen testing to state- Room air at rest, Room air with exertion and Exertion while wearing oxygen. You can add the SmartText '[id number]' to your office note to meet the insurance requirements. Oxygen prescription to include- Oxygen with portability, liter flow, duration (continuous, exertion, nocturnal,) nasal cannula, NPI, date and signature. Any hand written additions to the current script need to be signed and dated. All criteria is needed within 30 days of each other, with the script being after the face to face visit. Once the above criteria is received we can continue processing your request. Thank you, [facility] [phone] fax Frankie Deng MD 01/11/2022 8:33 AM Signed The pt is not yet enrolled with our service. My first visit with this pt is scheduled for 02/03/22. I can address orders then. However, if order requires more exigent attention, this request may be forwarded to the ordering provider. Thanks. Allergies As of Date: 01/10/2022 Noted Allergy Reaction DILAUDID (HYDROMORPHONE (BULK)) 05/30/2012 11 - Vomiting JARDIANCE (EMPAGLIFLOZIN) 11/07/2021 14 - Other: See Comments Comments: UTI METFORMIN 05/30/2012 6 - Diarrhea MORPHINE 05/30/2012 11 - Vomiting ONDANSETRON 02/14/2021 16 - Unknown PENICILLINS 05/30/2012 2 - Rash TRULICITY (DULAGLUTIDE) 11/07/2021 8 - GI Upset Comments: Nausea/Vomiting Date Reviewed: 01/06/2022 Reviewed by: Susan Cuello [facility] - Fully Assessed Reason for Visit: Oxygen [3494] Prescriptions as of 01/11/2022 - insulin detemir U-100 (LEVEMIR FLEXTOUCH U-100 INSULIN) 100 unit/mL (3 mL) injection pen Inject 40 units subcutaneously twice daily - insulin lispro (HUMALOG KWIKPEN INSULIN) 100 unit/mL Inject 29 units subcutaneously before breakfast, 29 units subcutaneously before lunch, 29 units subcutaneously before dinner. Administer this within 15 minutes before your meals or immediately after your meals. - linaGLIPtin (TRADJENTA) 5 mg tab Take 1 tablet by mouth once daily. - metoprolol succinate ER (TOPROL XL) 25 mg 24 hr tablet Take 1 tablet by mouth once daily. - ezetimibe (ZETIA) 10 mg tablet TAKE 1 TABLET BY MOUTH EVERY DAY - clopidogrel (PLAVIX) 75 mg tablet TAKE 1 TABLET BY MOUTH EVERY DAY - fluticasone-vilanterol (BREO ELLIPTA) 200-25 mcg/dose inhaler Inhale 1 Inhalation as instructed once daily. - lancets 33 gauge - isosorbide dinitrate (ISORDIL, SORBITRATE) 30 mg tablet - mupirocin (BACTROBAN) 2 % ointment - GAS RELIEF, SIMETHICONE, 80 mg chewable tablet - furosemide (LASIX) 20 mg tablet - ranolazine ER (RANEXA) 500 mg 12 hr tablet - albuterol (PROVENTIL) 2.5 mg /3 mL (0.083 %) nebulizer solution Use 3 mL via nebulizer every 4 hours as needed for wheezing/shortness of breath. - albuterol HFA (PROVENTIL HFA, VENTOLIN HFA) 90 mcg/actuation inhaler Inhale 2 Puffs as instructed every 4 hours as needed for wheezing/shortness of breath. - pen needle, diabetic (COMFORT EZ PEN NEEDLES) 32 gauge x 3/16 ndle Use as directed to inject insulin 5 times daily as directed. insulin: yes, E11.42 - flash glucose scanning reader (FREESTYLE GABRIELLE 2 READER) 1 Each. Use as directed to check blood sugars 3 times daily. Scan FreeStyle Gabrielle 2 sensors at least every 8 hours. - flash glucose sensor (FREESTYLE GABRIELLE 2 SENSOR) kit 2 Each. Use as directed to check blood sugars 3 times daily. Scan FreeStyle Gabrielle 2 sensors at least every 8 hours. Replace sensor every 14 days. - omeprazole (PRILOSEC) 20 mg capsule Take 1 capsule by mouth once daily. - atorvastatin (LIPITOR) 80 mg tablet Take 1 tablet by mouth once daily. - losartan (COZAAR) 50 mg tablet Take 1 tablet by mouth once daily. - Lancets lancets Use as directed to check blood sugar 3 times daily, insulin: yes, E11.9 - Lancing Device (LANCING DEVICE WITH LANCETS) misc Use as directed to check blood sugar 3 times daily, insulin: yes, E11.9 - pregabalin (LYRICA) 75 mg capsule Take 1 capsule by mouth twice daily for 180 days. - HYDROcodone-Acetaminoph en (NORCO) 7.5-325 mg per tablet Take 1 tablet by mouth once daily as needed for pain. - isosorbide mononitrate ER (IMDUR) 30 mg 24 hr tablet Take 1 tablet by mouth once daily. - nitroglycerin sublingual (NITROQUICK) 0.4 mg SL tablet Dissolve 1 tablet under the tongue as needed for Chest Leslee (more content not included)... [facility] CNPNon 01-06-2022 CNPN Telephone (STFLF) KIMBERLY PATEL ([id number]) 1955 [facility] Date Time Provider Department 01/06/22 SUSAN CUELLO During your visit today, we recorded the following information about you: Mayatiago Nguyen 01/06/2022 1:02 PM Signed Patient calling requesting a call back from Susan Cuello. Patient did not want to tell me what she needed, wants to go over it with Susan. Please call to advise. Susan Cuello [facility] 01/06/2022 3:07 PM Signed Returned pt's call Reports she contacted her new CGM supply company, [employer] which reports they are awaiting paperwork from PCP outlining pt meets criteria for CGM use (fax: [phone]). Will print recent office notes and fax to company as requested at this time. Faxed. Thank you, Susan Cuello, PharmD [place] Chavarria LPN 01/12/2022 8:41 AM Signed faed office notes from last appt with savel and pharmacy to Med. [phone] Allergies As of Date: 01/06/2022 Noted Allergy Reaction DILAUDID (HYDROMORPHONE (BULK)) 05/30/2012 11 - Vomiting JARDIANCE (EMPAGLIFLOZIN) 11/07/2021 14 - Other: See Comments Comments: UTI METFORMIN 05/30/2012 6 - Diarrhea MORPHINE 05/30/2012 11 - Vomiting ONDANSETRON 02/14/2021 16 - Unknown PENICILLINS 05/30/2012 2 - Rash TRULICITY (DULAGLUTIDE) 11/07/2021 8 - GI Upset Comments: Nausea/Vomiting Date Reviewed: 01/06/2022 Reviewed by: Susan Cuello [facility] - Fully Assessed Reason for Visit: Patient Question [1477] Prescriptions as of 01/12/2022 - insulin detemir U-100 (LEVEMIR FLEXTOUCH U-100 INSULIN) 100 unit/mL (3 mL) injection pen Inject 40 units subcutaneously twice daily - insulin lispro (HUMALOG KWIKPEN INSULIN) 100 unit/mL Inject 29 units subcutaneously before breakfast, 29 units subcutaneously before lunch, 29 units subcutaneously before dinner. Administer this within 15 minutes before your meals or immediately after your meals. - linaGLIPtin (TRADJENTA) 5 mg tab Take 1 tablet by mouth once daily. - metoprolol succinate ER (TOPROL XL) 25 mg 24 hr tablet Take 1 tablet by mouth once daily. - ezetimibe (ZETIA) 10 mg tablet TAKE 1 TABLET BY MOUTH EVERY DAY - clopidogrel (PLAVIX) 75 mg tablet TAKE 1 TABLET BY MOUTH EVERY DAY - fluticasone-vilanterol (BREO ELLIPTA) 200-25 mcg/dose inhaler Inhale 1 Inhalation as instructed once daily. - lancets 33 gauge - isosorbide dinitrate (ISORDIL, SORBITRATE) 30 mg tablet - mupirocin (BACTROBAN) 2 % ointment - GAS RELIEF, SIMETHICONE, 80 mg chewable tablet - furosemide (LASIX) 20 mg tablet - ranolazine ER (RANEXA) 500 mg 12 hr tablet - albuterol (PROVENTIL) 2.5 mg /3 mL (0.083 %) nebulizer solution Use 3 mL via nebulizer every 4 hours as needed for wheezing/shortness of breath. - albuterol HFA (PROVENTIL HFA, VENTOLIN HFA) 90 mcg/actuation inhaler Inhale 2 Puffs as instructed every 4 hours as needed for wheezing/shortness of breath. - pen needle, diabetic (COMFORT EZ PEN NEEDLES) 32 gauge x 3/16 ndle Use as directed to inject insulin 5 times daily as directed. insulin: yes, E11.42 - flash glucose scanning reader (FREESTYLE GABRIELLE 2 READER) 1 Each. Use as directed to check blood sugars 3 times daily. Scan FreeStyle Gabrielle 2 sensors at least every 8 hours. - flash glucose sensor (FREESTYLE GABRIELLE 2 SENSOR) kit 2 Each. Use as directed to check blood sugars 3 times daily. Scan FreeStyle Gabrielle 2 sensors at least every 8 hours. Replace sensor every 14 days. - omeprazole (PRILOSEC) 20 mg capsule Take 1 capsule by mouth once daily. - atorvastatin (LIPITOR) 80 mg tablet Take 1 tablet by mouth once daily. - losartan (COZAAR) 50 mg tablet Take 1 tablet by mouth once daily. - Lancets lancets Use as directed to check blood sugar 3 times daily, insulin: yes, E11.9 - Lancing Device (LANCING DEVICE WITH LANCETS) misc Use as directed to check blood sugar 3 times daily, insulin: yes, E11.9 - pregabalin (LYRICA) 75 mg capsule Take 1 capsule by mouth twice daily for 180 days. - HYDROcodone-Acetaminoph en (NORCO) 7.5-325 mg per tablet Take 1 tablet by mouth once daily as needed for pain. - isosorbide mononitrate ER (IMDUR) 30 mg 24 hr tablet Take 1 tablet by mouth once daily. - nitroglycerin sublingual (NITROQUICK) 0.4 mg SL tablet Dissolve 1 tablet under the tongue as needed for Chest Pain. If no pain relief call 911. - polyethylene glycol 3350 (MIRALAX, GLYCOLAX) 17 gram packet Take 1 Packet by mouth once daily as needed (constipation). - Multivitamins-Minerals- Lutein (MULTIVITAMIN 50 PLUS) tab Take 1 tablet by mouth once daily. - WALKER ROLLATOR SEAT WITH 6 WHEELS - RED Walker rollator with seat - aspirin, enteric coated (ASPIRIN LOW DOSE) 81 mg EC tablet Take 81 mg by mouth once daily. - ranolazine SR (RANEXA) 1,000 mg tab ER 12 hr Take 1,000 mg by mouth twice daily. Meds Comments as of 07/08/2021: 07/08/21 The medications are managed by this patient by (more content not included)... Normal [facility] Lidia 12-30-2021 HEATHERN Telephone ([facility]) KIMBERLY PATEL ([id number]) 1955 [facility] Date Time Provider Department 12/30/21 MOE MEYER During your visit today, we recorded the following information about you: [place] Sheaed GALEAS 12/30/2021 10:41 AM Signed Prior Authorization was done for basaglar and was denied. Basaglar KwikPen is denied because it is not on your plan's Drug List (formulary). Medication authorization requires the following: (1) You need to try one (1) of these covered drugs: (a) Levemir FlexTouch. (b) Tresiba FlexTouch Prior Authorization pending for novolog unless ok to change to covered alternatives Covered meds are humalog, lyumjev, insulin lispro Susan Cuello adelita 01/06/2022 12:04 PM Signed Adjusted to Levemir and Humalog per insurance at recent pharmD fern on 01/06/22. Thank you, Susan Cuello, PharmD Allergies As of Date: 12/30/2021 Noted Allergy Reaction DILAUDID (HYDROMORPHONE (BULK)) 05/30/2012 11 - Vomiting JARDIANCE (EMPAGLIFLOZIN) 11/07/2021 14 - Other: See Comments Comments: UTI METFORMIN 05/30/2012 6 - Diarrhea MORPHINE 05/30/2012 11 - Vomiting ONDANSETRON 02/14/2021 16 - Unknown PENICILLINS 05/30/2012 2 - Rash TRULICITY (DULAGLUTIDE) 11/07/2021 8 - GI Upset Comments: Nausea/Vomiting Date Reviewed: 12/19/2021 Reviewed by: Moe Meyer MD - Fully Assessed Reason for Visit: Medication Authorization [1699] Prescriptions as of 01/06/2022 - insulin detemir U-100 (LEVEMIR FLEXTOUCH U-100 INSULIN) 100 unit/mL (3 mL) injection pen Inject 40 units subcutaneously twice daily - insulin lispro (HUMALOG KWIKPEN INSULIN) 100 unit/mL Inject 29 units subcutaneously before breakfast, 29 units subcutaneously before lunch, 29 units subcutaneously before dinner. Administer this within 15 minutes before your meals or immediately after your meals. - linaGLIPtin (TRADJENTA) 5 mg tab Take 1 tablet by mouth once daily. - metoprolol succinate ER (TOPROL XL) 25 mg 24 hr tablet Take 1 tablet by mouth once daily. - ezetimibe (ZETIA) 10 mg tablet TAKE 1 TABLET BY MOUTH EVERY DAY - clopidogrel (PLAVIX) 75 mg tablet TAKE 1 TABLET BY MOUTH EVERY DAY - fluticasone-vilanterol (BREO ELLIPTA) 200-25 mcg/dose inhaler Inhale 1 Inhalation as instructed once daily. - lancets 33 gauge - isosorbide dinitrate (ISORDIL, SORBITRATE) 30 mg tablet - mupirocin (BACTROBAN) 2 % ointment - GAS RELIEF, SIMETHICONE, 80 mg chewable tablet - furosemide (LASIX) 20 mg tablet - ranolazine ER (RANEXA) 500 mg 12 hr tablet - albuterol (PROVENTIL) 2.5 mg /3 mL (0.083 %) nebulizer solution Use 3 mL via nebulizer every 4 hours as needed for wheezing/shortness of breath. - albuterol HFA (PROVENTIL HFA, VENTOLIN HFA) 90 mcg/actuation inhaler Inhale 2 Puffs as instructed every 4 hours as needed for wheezing/shortness of breath. - pen needle, diabetic (COMFORT EZ PEN NEEDLES) 32 gauge x 3/16 ndle Use as directed to inject insulin 5 times daily as directed. insulin: yes, E11.42 - flash glucose scanning reader (FREESTYLE GABRIELLE 2 READER) 1 Each. Use as directed to check blood sugars 3 times daily. Scan FreeStyle Gabrielle 2 sensors at least every 8 hours. - flash glucose sensor (FREESTYLE GABRIELLE 2 SENSOR) kit 2 Each. Use as directed to check blood sugars 3 times daily. Scan FreeStyle Gabrielle 2 sensors at least every 8 hours. Replace sensor every 14 days. - omeprazole (PRILOSEC) 20 mg capsule Take 1 capsule by mouth once daily. - atorvastatin (LIPITOR) 80 mg tablet Take 1 tablet by mouth once daily. - losartan (COZAAR) 50 mg tablet Take 1 tablet by mouth once daily. - Lancets lancets Use as directed to check blood sugar 3 times daily, insulin: yes, E11.9 - Lancing Device (LANCING DEVICE WITH LANCETS) misc Use as directed to check blood sugar 3 times daily, insulin: yes, E11.9 - pregabalin (LYRICA) 75 mg capsule Take 1 capsule by mouth twice daily for 180 days. - HYDROcodone-Acetaminoph en (NORCO) 7.5-325 mg per tablet Take 1 tablet by mouth once daily as needed for pain. - isosorbide mononitrate ER (IMDUR) 30 mg 24 hr tablet Take 1 tablet by mouth once daily. - nitroglycerin sublingual (NITROQUICK) 0.4 mg SL tablet Dissolve 1 tablet under the tongue as needed for Chest Pain. If no pain relief call 911. - polyethylene glycol 3350 (MIRALAX, GLYCOLAX) 17 gram packet Take 1 Packet by mouth once daily as needed (constipation). - Multivitamins-Minerals- Lutein (MULTIVITAMIN 50 PLUS) tab Take 1 tablet by mouth once daily. - WALKER ROLLATOR SEAT WITH 6 WHEELS - RED Walker rollator with seat - aspirin, enteric coated (ASPIRIN LOW DOSE) 81 mg EC tablet Take 81 mg by mouth once daily. - ranolazine SR (RANEXA) 1,000 mg tab ER 12 hr Take 1,000 mg by mouth twice daily. Meds Comments as of 07/08/2021: 07/08/21 The medications are managed by this patient by: PATIENT Chiquita Bonneraryasonia, [facility] 02/10/21 The medica (more content not included)... Normal [facility] L[facility] 12-29-2021 WILFRIDO Telephone (SANA) KIMBERLY PATEL ([id number]) 1955 [address] [facility] Date Time Provider Department 12/29/21 MOE MEYER During your visit today, we recorded the following information about you: [place] Chavarria LPN 12/29/2021 8:48 AM Signed Us [employer] glucose monitoring supplies form on dr jose antonio Chavarria LPN 12/30/2021 4:20 PM Signed faxed Allergies As of Date: 12/29/2021 Noted Allergy Reaction DILAUDID (HYDROMORPHONE (BULK)) 05/30/2012 11 - Vomiting JARDIANCE (EMPAGLIFLOZIN) 11/07/2021 14 - Other: See Comments Comments: UTI METFORMIN 05/30/2012 6 - Diarrhea MORPHINE 05/30/2012 11 - Vomiting ONDANSETRON 02/14/2021 16 - Unknown PENICILLINS 05/30/2012 2 - Rash TRULICITY (DULAGLUTIDE) 11/07/2021 8 - GI Upset Comments: Nausea/Vomiting Date Reviewed: 12/19/2021 Reviewed by: Moe Meyer MD - Fully Assessed Reason for Visit: Forms [913] Prescriptions as of 12/30/2021 - linaGLIPtin (TRADJENTA) 5 mg tab Take 1 tablet by mouth once daily. - insulin glargine (BASAGLAR KWIKPEN U-100 INSULIN) 100 unit/mL (3 mL) Inject 40 units in the morning and inject 40 units in the evening - insulin aspart U-100 (NOVOLOG FLEXPEN U-100 INSULIN) 100 unit/mL (3 mL) Inject 29 units subcutaneously three times daily with meals - metoprolol succinate ER (TOPROL XL) 25 mg 24 hr tablet Take 1 tablet by mouth once daily. - ezetimibe (ZETIA) 10 mg tablet TAKE 1 TABLET BY MOUTH EVERY DAY - clopidogrel (PLAVIX) 75 mg tablet TAKE 1 TABLET BY MOUTH EVERY DAY - fluticasone-vilanterol (BREO ELLIPTA) 200-25 mcg/dose inhaler Inhale 1 Inhalation as instructed once daily. - lancets 33 gauge - isosorbide dinitrate (ISORDIL, SORBITRATE) 30 mg tablet - mupirocin (BACTROBAN) 2 % ointment - GAS RELIEF, SIMETHICONE, 80 mg chewable tablet - furosemide (LASIX) 20 mg tablet - ranolazine ER (RANEXA) 500 mg 12 hr tablet - albuterol (PROVENTIL) 2.5 mg /3 mL (0.083 %) nebulizer solution Use 3 mL via nebulizer every 4 hours as needed for wheezing/shortness of breath. - albuterol HFA (PROVENTIL HFA, VENTOLIN HFA) 90 mcg/actuation inhaler Inhale 2 Puffs as instructed every 4 hours as needed for wheezing/shortness of breath. - pen needle, diabetic (COMFORT EZ PEN NEEDLES) 32 gauge x 3/16 ndle Use as directed to inject insulin 5 times daily as directed. insulin: yes, E11.42 - flash glucose scanning reader (FREESTYLE GABRIELLE 2 READER) 1 Each. Use as directed to check blood sugars 3 times daily. Scan FreeStyle Gabrielle 2 sensors at least every 8 hours. - flash glucose sensor (FREESTYLE GABRIELLE 2 SENSOR) kit 2 Each. Use as directed to check blood sugars 3 times daily. Scan FreeStyle Gabrielle 2 sensors at least every 8 hours. Replace sensor every 14 days. - omeprazole (PRILOSEC) 20 mg capsule Take 1 capsule by mouth once daily. - atorvastatin (LIPITOR) 80 mg tablet Take 1 tablet by mouth once daily. - losartan (COZAAR) 50 mg tablet Take 1 tablet by mouth once daily. - Lancets lancets Use as directed to check blood sugar 3 times daily, insulin: yes, E11.9 - Lancing Device (LANCING DEVICE WITH LANCETS) misc Use as directed to check blood sugar 3 times daily, insulin: yes, E11.9 - pregabalin (LYRICA) 75 mg capsule Take 1 capsule by mouth twice daily for 180 days. - HYDROcodone-Acetaminoph en (NORCO) 7.5-325 mg per tablet Take 1 tablet by mouth once daily as needed for pain. - isosorbide mononitrate ER (IMDUR) 30 mg 24 hr tablet Take 1 tablet by mouth once daily. - nitroglycerin sublingual (NITROQUICK) 0.4 mg SL tablet Dissolve 1 tablet under the tongue as needed for Chest Pain. If no pain relief call 911. - polyethylene glycol 3350 (MIRALAX, GLYCOLAX) 17 gram packet Take 1 Packet by mouth once daily as needed (constipation). - Multivitamins-Minerals- Lutein (MULTIVITAMIN 50 PLUS) tab Take 1 tablet by mouth once daily. - WALKER ROLLATOR SEAT WITH 6 WHEELS - RED Walker rollator with seat - aspirin, enteric coated (ASPIRIN LOW DOSE) 81 mg EC tablet Take 81 mg by mouth once daily. - ranolazine SR (RANEXA) 1,000 mg tab ER 12 hr Take 1,000 mg by mouth twice daily. Meds Comments as of 07/08/2021: 07/08/21 The medications are managed by this patient by: PATIENT Chiquita Bedolla, [facility] 02/10/21 The medications are managed by this patient by: PATIENT Chiquita Bedolla, PharmRizwana 12/03/20 The medications are managed by this patient by: PATIENT Quique Guzmán, Angela Problem List As Of Date 12/29/2021 Noted Resolved Heart disease (organic) [I51.9] 05/31/2012 08/26/2021 DIYA (obstructive sleep apnea) [G47.33] 05/31/2012 Dyspnea [R06.00] 05/31/2012 12/19/2021 Pneumonia due to COVID-19 virus [U07.1, J12.82] 10/13/2020 08/26/2021 CHF (congestive heart failure) (HCC) [I50.9] 10/17/2020 Type 2 diabetes mellitus with diabetic polyneur*10/17/2020 Present for a month [R73.9] 10/17/2020 08/26/2021 CHF, acute on chronic (HCC) [I50.9] (more content not included)... Normal [facility] CNPN Telephone ([facility]) KIMBERLY PATEL ([id number]) 1955 [facility] Date Time Provider Department 12/29/21 MOE MEYER During your visit today, we recorded the following information about you: [place] Chavarria LPN 12/29/2021 11:57 AM Signed Prior Authorization pending for basaglar and novolog Susan Cuello, [facility] 01/06/2022 12:04 PM Signed Adjusted to Levemir and Humalog per insurance at recent pharmD [facility]ern on 01/06/22. Thank you, Susan Cuello, PharmD [employer] Sheaed GALEAS 01/17/2022 2:32 PM Signed Looks like an appeal was done for pts novolog and approved until 2021. Will send to pharmacy to see if they want pt on novolog or humalog. [facility] Phone # Susan Cuello [facility] 01/17/2022 4:42 PM Signed Noted. Will not make any changes today though will plan to discuss this with pt further at next pharmD fern. Thank you, Susan Cuello, PharmD Allergies As of Date: 12/29/2021 Noted Allergy Reaction DILAUDID (HYDROMORPHONE (BULK)) 05/30/2012 11 - Vomiting JARDIANCE (EMPAGLIFLOZIN) 11/07/2021 14 - Other: See Comments Comments: UTI METFORMIN 05/30/2012 6 - Diarrhea MORPHINE 05/30/2012 11 - Vomiting ONDANSETRON 02/14/2021 16 - Unknown PENICILLINS 05/30/2012 2 - Rash TRULICITY (DULAGLUTIDE) 11/07/2021 8 - GI Upset Comments: Nausea/Vomiting Date Reviewed: 12/19/2021 Reviewed by: Moe Meyer MD - Fully Assessed Reason for Visit: Medication Authorization [1699] Prescriptions as of 01/17/2022 - insulin detemir U-100 (LEVEMIR FLEXTOUCH U-100 INSULIN) 100 unit/mL (3 mL) injection pen Inject 46 units subcutaneously twice daily - insulin lispro (HUMALOG KWIKPEN INSULIN) 100 unit/mL Inject 29 units subcutaneously before breakfast, 29 units subcutaneously before lunch, 29 units subcutaneously before dinner. Administer this within 15 minutes before your meals or immediately after your meals. - linaGLIPtin (TRADJENTA) 5 mg tab Take 1 tablet by mouth once daily. - metoprolol succinate ER (TOPROL XL) 25 mg 24 hr tablet Take 1 tablet by mouth once daily. - ezetimibe (ZETIA) 10 mg tablet TAKE 1 TABLET BY MOUTH EVERY DAY - clopidogrel (PLAVIX) 75 mg tablet TAKE 1 TABLET BY MOUTH EVERY DAY - fluticasone-vilanterol (BREO ELLIPTA) 200-25 mcg/dose inhaler Inhale 1 Inhalation as instructed once daily. - lancets 33 gauge - isosorbide dinitrate (ISORDIL, SORBITRATE) 30 mg tablet - mupirocin (BACTROBAN) 2 % ointment - GAS RELIEF, SIMETHICONE, 80 mg chewable tablet - furosemide (LASIX) 20 mg tablet - ranolazine ER (RANEXA) 500 mg 12 hr tablet - albuterol (PROVENTIL) 2.5 mg /3 mL (0.083 %) nebulizer solution Use 3 mL via nebulizer every 4 hours as needed for wheezing/shortness of breath. - albuterol HFA (PROVENTIL HFA, VENTOLIN HFA) 90 mcg/actuation inhaler Inhale 2 Puffs as instructed every 4 hours as needed for wheezing/shortness of breath. - pen needle, diabetic (COMFORT EZ PEN NEEDLES) 32 gauge x 3/16 ndle Use as directed to inject insulin 5 times daily as directed. insulin: yes, E11.42 - flash glucose scanning reader (FREESTYLE GABRIELLE 2 READER) 1 Each. Use as directed to check blood sugars 3 times daily. Scan FreeStyle Gabrielle 2 sensors at least every 8 hours. - flash glucose sensor (FREESTYLE GABRIELLE 2 SENSOR) kit 2 Each. Use as directed to check blood sugars 3 times daily. Scan FreeStyle Gabrielle 2 sensors at least every 8 hours. Replace sensor every 14 days. - omeprazole (PRILOSEC) 20 mg capsule Take 1 capsule by mouth once daily. - atorvastatin (LIPITOR) 80 mg tablet Take 1 tablet by mouth once daily. - losartan (COZAAR) 50 mg tablet Take 1 tablet by mouth once daily. - Lancets lancets Use as directed to check blood sugar 3 times daily, insulin: yes, E11.9 - Lancing Device (LANCING DEVICE WITH LANCETS) misc Use as directed to check blood sugar 3 times daily, insulin: yes, E11.9 - pregabalin (LYRICA) 75 mg capsule Take 1 capsule by mouth twice daily for 180 days. - HYDROcodone-Acetaminoph en (NORCO) 7.5-325 mg per tablet Take 1 tablet by mouth once daily as needed for pain. - isosorbide mononitrate ER (IMDUR) 30 mg 24 hr tablet Take 1 tablet by mouth once daily. - nitroglycerin sublingual (NITROQUICK) 0.4 mg SL tablet Dissolve 1 tablet under the tongue as needed for Chest Pain. If no pain relief call 911. - polyethylene glycol 3350 (MIRALAX, GLYCOLAX) 17 gram packet Take 1 Packet by mouth once daily as needed (constipation). - Multivitamins-Minerals- Lutein (MULTIVITAMIN 50 PLUS) tab Take 1 tablet by mouth once daily. - WALKER ROLLATOR SEAT WITH 6 WHEELS - RED Walker rollator with seat - aspirin, enteric coated (ASPIRIN LOW DOSE) 81 mg EC tablet Take 81 mg by mouth once daily. - ranolazine SR (RANEXA) 1,000 mg tab ER 12 hr Take 1,000 mg by mouth twice daily. Meds Comments as of 07/08/2021: 07/08/21 The medications are managed by (more content not included)... [facility] KIMBERLY PATEL ([id number]) 1955 [facility] Date Time Provider Department 12/20/21 MOE MEYER During your visit today, we recorded the following information about you: Arelis Viramontes RN 12/20/2021 4:18 PM Signed Per [facility], they cannot accept her for home care as the order is written. They are unable to perform oxygen testing however it looks like there is a consult to medical care at home is process for this. They can do home care services such as PT, OT, HULL GRINDER, and senior care but will need a new order, demographics, insurance, and chart notes from at least a virtual appointment (cannot accept phone appt). Moe Meyer MD 12/20/2021 5:00 PM Signed Pt is unable to do virtual visit and is home bound.. reason I placed referral. I referred to mobile PCP to establish and so they can do face to face for O2 recertification Allergies As of Date: 12/20/2021 Noted Allergy Reaction DILAUDID (HYDROMORPHONE (BULK)) 05/30/2012 11 - Vomiting JARDIANCE (EMPAGLIFLOZIN) 11/07/2021 14 - Other: See Comments Comments: UTI METFORMIN 05/30/2012 6 - Diarrhea MORPHINE 05/30/2012 11 - Vomiting ONDANSETRON 02/14/2021 16 - Unknown PENICILLINS 05/30/2012 2 - Rash TRULICITY (DULAGLUTIDE) 11/07/2021 8 - GI Upset Comments: Nausea/Vomiting Date Reviewed: 12/19/2021 Reviewed by: Moe Meyer MD - Fully Assessed Reason for Visit: Referral Request [124] Prescriptions as of 12/29/2021 - linaGLIPtin (TRADJENTA) 5 mg tab Take 1 tablet by mouth once daily. - insulin glargine (BASAGLAR KWIKPEN U-100 INSULIN) 100 unit/mL (3 mL) Inject 40 units in the morning and inject 40 units in the evening - insulin aspart U-100 (NOVOLOG FLEXPEN U-100 INSULIN) 100 unit/mL (3 mL) Inject 29 units subcutaneously three times daily with meals - metoprolol succinate ER (TOPROL XL) 25 mg 24 hr tablet Take 1 tablet by mouth once daily. - ezetimibe (ZETIA) 10 mg tablet TAKE 1 TABLET BY MOUTH EVERY DAY - clopidogrel (PLAVIX) 75 mg tablet TAKE 1 TABLET BY MOUTH EVERY DAY - fluticasone-vilanterol (BREO ELLIPTA) 200-25 mcg/dose inhaler Inhale 1 Inhalation as instructed once daily. - lancets 33 gauge - isosorbide dinitrate (ISORDIL, SORBITRATE) 30 mg tablet - mupirocin (BACTROBAN) 2 % ointment - GAS RELIEF, SIMETHICONE, 80 mg chewable tablet - furosemide (LASIX) 20 mg tablet - ranolazine ER (RANEXA) 500 mg 12 hr tablet - albuterol (PROVENTIL) 2.5 mg /3 mL (0.083 %) nebulizer solution Use 3 mL via nebulizer every 4 hours as needed for wheezing/shortness of breath. - albuterol HFA (PROVENTIL HFA, VENTOLIN HFA) 90 mcg/actuation inhaler Inhale 2 Puffs as instructed every 4 hours as needed for wheezing/shortness of breath. - pen needle, diabetic (COMFORT EZ PEN NEEDLES) 32 gauge x 3/16 ndle Use as directed to inject insulin 5 times daily as directed. insulin: yes, E11.42 - flash glucose scanning reader (FREESTYLE GABRIELLE 2 READER) 1 Each. Use as directed to check blood sugars 3 times daily. Scan FreeStyle Gabrielle 2 sensors at least every 8 hours. - flash glucose sensor (FREESTYLE GABRIELLE 2 SENSOR) kit 2 Each. Use as directed to check blood sugars 3 times daily. Scan FreeStyle Gabrielle 2 sensors at least every 8 hours. Replace sensor every 14 days. - omeprazole (PRILOSEC) 20 mg capsule Take 1 capsule by mouth once daily. - atorvastatin (LIPITOR) 80 mg tablet Take 1 tablet by mouth once daily. - losartan (COZAAR) 50 mg tablet Take 1 tablet by mouth once daily. - Lancets lancets Use as directed to check blood sugar 3 times daily, insulin: yes, E11.9 - Lancing Device (LANCING DEVICE WITH LANCETS) misc Use as directed to check blood sugar 3 times daily, insulin: yes, E11.9 - pregabalin (LYRICA) 75 mg capsule Take 1 capsule by mouth twice daily for 180 days. - HYDROcodone-Acetaminoph en (NORCO) 7.5-325 mg per tablet Take 1 tablet by mouth once daily as needed for pain. - isosorbide mononitrate ER (IMDUR) 30 mg 24 hr tablet Take 1 tablet by mouth once daily. - nitroglycerin sublingual (NITROQUICK) 0.4 mg SL tablet Dissolve 1 tablet under the tongue as needed for Chest Pain. If no pain relief call 911. - polyethylene glycol 3350 (MIRALAX, GLYCOLAX) 17 gram packet Take 1 Packet by mouth once daily as needed (constipation). - Multivitamins-Minerals- Lutein (MULTIVITAMIN 50 PLUS) tab Take 1 tablet by mouth once daily. - WALKER ROLLATOR SEAT WITH 6 WHEELS - RED Walker rollator with seat - aspirin, enteric coated (ASPIRIN LOW DOSE) 81 mg EC tablet Take 81 mg by mouth once daily. - ranolazine SR (RANEXA) 1,000 mg tab ER 12 hr Take 1,000 mg by mouth twice daily. Meds Comments as of 07/08/2021: 07/08/21 The medications are managed by this patient by: LUIS ALBERTO Bedolla, [facility] 02/10/21 The medications are managed by this patient by: PATIENT Chiquita Graeme, PharmD 12/03/20 The medica (more content not included)... Normal [facility] CNPNon 12-19-2021 [facility] KIMBERLY PATEL ([id number]) 1955 [facility] Date Time Provider Department 12/19/21 MOE MEEYR [facility] During your visit today, we recorded the following information about you: Nanette Garcia, PSS 12/21/2021 9:18 AM Addendum [facility]ICAL [facility] AT HOME [facility] REFERRAL Date Referral Received: 12/19/2021 Referral Source: [facility] Physician office Date of : 1955 Age: [age] year old PCP: No primary care provider on file. Visit address from [facility]: [address] [place] [address] Reason for referral: Ongoing Primary Care Name of Physician who gave the order: Dr. Moe Meyer Pt needs face to face encounter for home oxygen, not able to get to any medical appointments at this time. Almost out of nasal cannulas. She is in need of a provider to come out to her home lala. Would like her to establish with primary care that can go out to the home. She is currently bed bound, but typically has issues getting out of the home at baseline due to her multiple comorbidities. She will need appointment lala as she is out of nasal cannulas for her home O2. Insurance will not pay for more without face to face and updated spO2. Other services ordered: None Primary Insurance Company: Payor: [facility] MEDICARE / Plan: [facility] DUAL COMPLETE HMO SNP / Product Type: Medicare / Primary Insurance ID Number: [id number] Nanette Garcia, PSS 12/21/2021 9:18 AM Signed Referral received from Dr. Moe Meyer on 12/19/2021 for [facility] services. Referral sent to mobile marketing manager for review. Referral source will be contacted within 1-2 business days regarding status of acceptance. KRISTIN Mccoy MD 12/21/2021 3:07 PM Signed Okay for Medical Care at Home services KRISTIN Mccoy 12/21/2021 3:21 PM Signed A referral was received for Medical Care at Home for an in home initial assessment for primary care services. The referral was accepted and the patient/family will be contacted to schedule the initial assessment visit. The initial assessment visit will be scheduled with Dr. Frankie Deng. KRISTIN Mccoy Rosiedomenico Calvin 01/03/2022 2:24 PM Signed Date contacted Patient/Family: 01/03/2022 Name of primary contact and phone number for scheduling: PT [phone] E-Script Pharmacy confirmed and entered in ADOP: Yes Does the patient currently take any blood thinning medications ? like Coumadin or Warfarin? Yes, PLAVIX Is the patient taking pain medication? No Does the patient need help transferring out of bed? b. needs physical assistance by another person Do you have any other services such as home health care, other physicians, hospice, respiratory, DME, etc. coming out to your home?: [facility] and PT AND HULL GRINDER BUT THEY HAVE NOT CALLED Pt TO SCHEDULE Patient Concerns: N/A Do you have any Advance Directives such as a Power of [place] or a Living Will? If so, please have these out and available for the provider to review on the first visit. Or if the patient/caregiver has the capability to scan or send a copy to an email please have them send copies to [email or web address] During this visit, your physician or nurse practitioner will: Discuss your medical issues with you and your family member or caregiver. Will review all current medications, including: prescription pills, capsules, eye drops, injections, suppositories, etc. All over the counter vitamins and other medications and any natural or herbal substances. So, please have all of these out on your table ready to be reviewed by the physician. The physician will examine you just like in a medical office. The physician will check vitals, listen to your heart and lungs, look at your skin, test your reflexes, etc. Current patient phone numbers in Demographics: [phone] (home) [phone] (cell) Our practice utilizes an automated appointment notification system as well as phone numbers that may not be identified on caller ID. While receiving our services we ask that you make every attempt to answer all calls even if unrecognized. Appointments will be made based on the provider's plan of care. Visits will be scheduled by the physician or the nurse practitioner who shares the patient load with the physician. You will receive an automated phone call 4 days prior to your appointment, giving you the blocked time and date of the appointment. You are able to confirm the appointment by listening to the entire call. If the message gets cut off or goes to your voicemail, you will need to call the office to confirm or to reschedule if needed. Our office phone number is [phone]. Appointments must be confirmed via the automated system or a telephone call to the office before sending the provider out. Since we are talking today and confirming the first visit appointment, you will not need to call us back when (more content not included)... Normal [facility] CNPN Telephone ([facility]) KIMBERLY PATEL ([id number]) 1955 [facility] Date Time Provider Department 12/19/21 RIANA GARCIA [facility] During your visit today, we recorded the following information about you: KRISTIN Cramer 12/19/2021 8:32 AM Signed Thank you for the referral of your patient to [facility]. At this time, we are at capacity and are unable to accept your patient. In order to help your patient receive quality home care, we have included reputable agencies that service this area: [facility] [phone] or [facility] [phone]. Please contact this agency and they will work with your patient to arrange timely services. Thank you, KRISTIN Cramer 12/19/2021 8:31 AM KRISTIN Pickard 12/19/2021 12:11 PM Addendum Called and spoke with patient about a different home care company. She requested [facility]. Gave patient their phone number and faxed demographics, insurance and photo id, referral and office notes to [employer] [phone]. Received successful fax transmission. Allergies As of Date: 12/19/2021 Noted Allergy Reaction DILAUDID (HYDROMORPHONE (BULK)) 05/30/2012 11 - Vomiting JARDIANCE (EMPAGLIFLOZIN) 11/07/2021 14 - Other: See Comments Comments: UTI METFORMIN 05/30/2012 6 - Diarrhea MORPHINE 05/30/2012 11 - Vomiting ONDANSETRON 02/14/2021 16 - Unknown PENICILLINS 05/30/2012 2 - Rash TRULICITY (DULAGLUTIDE) 11/07/2021 8 - GI Upset Comments: Nausea/Vomiting Date Reviewed: 12/19/2021 Reviewed by: Moe Meyer MD - Fully Assessed Reason for Visit: Home Care [4073] Cmt: Decline Primary Visit Diagnosis:Physical debility [R53.81] Other Visit Diagnoses:Chronic respiratory failure with hypoxia ([facility]) [J96.11] Chronic combined systolic and diastolic congestive heart failure ([facility]) [I50.42] Class 3 severe obesity due to excess calories with serious comorbidity and body mass index (BMI) of 45.0 to 49.9 in adult ([facility]) [E66.01, Z68.42] Order(s):[facility] [[id number]] Order #: [id number]: 1 Prescriptions as of 12/19/2021 - linaGLIPtin (TRADJENTA) 5 mg tab Take 1 tablet by mouth once daily. - insulin glargine (BASAGLAR KWIKPEN U-100 INSULIN) 100 unit/mL (3 mL) Inject 40 units in the morning and inject 40 units in the evening - insulin aspart U-100 (NOVOLOG FLEXPEN U-100 INSULIN) 100 unit/mL (3 mL) Inject 29 units subcutaneously three times daily with meals - metoprolol succinate ER (TOPROL XL) 25 mg 24 hr tablet Take 1 tablet by mouth once daily. - ezetimibe (ZETIA) 10 mg tablet TAKE 1 TABLET BY MOUTH EVERY DAY - clopidogrel (PLAVIX) 75 mg tablet TAKE 1 TABLET BY MOUTH EVERY DAY - fluticasone-vilanterol (BREO ELLIPTA) 200-25 mcg/dose inhaler Inhale 1 Inhalation as instructed once daily. - lancets 33 gauge - isosorbide dinitrate (ISORDIL, SORBITRATE) 30 mg tablet - mupirocin (BACTROBAN) 2 % ointment - GAS RELIEF, SIMETHICONE, 80 mg chewable tablet - furosemide (LASIX) 20 mg tablet - ranolazine ER (RANEXA) 500 mg 12 hr tablet - albuterol (PROVENTIL) 2.5 mg /3 mL (0.083 %) nebulizer solution Use 3 mL via nebulizer every 4 hours as needed for wheezing/shortness of breath. - albuterol HFA (PROVENTIL HFA, VENTOLIN HFA) 90 mcg/actuation inhaler Inhale 2 Puffs as instructed every 4 hours as needed for wheezing/shortness of breath. - pen needle, diabetic (COMFORT EZ PEN NEEDLES) 32 gauge x 3/16 ndle Use as directed to inject insulin 5 times daily as directed. insulin: yes, E11.42 - flash glucose scanning reader (FREESTYLE GABRIELLE 2 READER) 1 Each. Use as directed to check blood sugars 3 times daily. Scan FreeStyle Gabrielle 2 sensors at least every 8 hours. - flash glucose sensor (FREESTYLE GABRIELLE 2 SENSOR) kit 2 Each. Use as directed to check blood sugars 3 times daily. Scan FreeStyle Gabrielle 2 sensors at least every 8 hours. Replace sensor every 14 days. - omeprazole (PRILOSEC) 20 mg capsule Take 1 capsule by mouth once daily. - atorvastatin (LIPITOR) 80 mg tablet Take 1 tablet by mouth once daily. - losartan (COZAAR) 50 mg tablet Take 1 tablet by mouth once daily. - Lancets lancets Use as directed to check blood sugar 3 times daily, insulin: yes, E11.9 - Lancing Device (LANCING DEVICE WITH LANCETS) misc Use as directed to check blood sugar 3 times daily, insulin: yes, E11.9 - pregabalin (LYRICA) 75 mg capsule Take 1 capsule by mouth twice daily for 180 days. - HYDROcodone-Acetaminoph en (NORCO) 7.5-325 mg per tablet Take 1 tablet by mouth once daily as needed for pain. - isosorbide mononitrate ER (IMDUR) 30 mg 24 hr tablet Take 1 tablet by mouth once daily. - nitroglycerin sublingual (NITROQUICK) 0.4 mg SL tablet Dissolve 1 tablet under the tongue as needed for Chest Pain. If no pain relief call 911. - polyethylene glycol 3350 (MIRALAX, GLYCOLAX) 17 gram packet Take 1 Packet by mouth once daily as ne (more content not included)... Normal [facility] CNPNon 12-16-2021 C[facility]N Telephone [facility] KIMBERLY PATEL ([id number]) 1955 [facility] Date Time Provider Department 12/16/21 LIDA CANAS [facility] During your visit today, we recorded the following information about you: Lida Ariza, [facility] 12/16/2021 1:43 PM Signed [facility] received your Oxygen order. At this time the patient does not meet the criteria for insurance coverage. To provide oxygen for the patient the following is needed: A face to face office visit within the last 30 days documenting a chronic lung disease, symptoms, need for oxygen therapy and other methods have been tried and failed prior to initiating oxygen. Oxygen testing to state- Room air at rest, Room air with exertion and Exertion while wearing oxygen. You can add the SmartText '[id number]' to your office note to meet the insurance requirements. Oxygen prescription to include- Oxygen with portability, liter flow, duration (continuous, exertion, nocturnal,) nasal cannula, NPI, date and signature. Any hand written additions to the current script need to be signed and dated. All criteria is needed within 30 days of each other, with the script being after the face to face visit. Once the above criteria is received we can continue processing your request. Thank you, [facility] [phone] fax Lurdes Tovar Ma 12/19/2021 1:27 PM Signed Waiting on summa response. Allergies As of Date: 12/16/2021 Noted Allergy Reaction DILAUDID (HYDROMORPHONE (BULK)) 05/30/2012 11 - Vomiting JARDIANCE (EMPAGLIFLOZIN) 11/07/2021 14 - Other: See Comments Comments: UTI METFORMIN 05/30/2012 6 - Diarrhea MORPHINE 05/30/2012 11 - Vomiting ONDANSETRON 02/14/2021 16 - Unknown PENICILLINS 05/30/2012 2 - Rash TRULICITY (DULAGLUTIDE) 11/07/2021 8 - GI Upset Comments: Nausea/Vomiting Date Reviewed: 12/16/2021 Reviewed by: Susan Cuello [facility] - Fully Assessed Reason for Visit: Oxygen [3494] Prescriptions as of 12/19/2021 - linaGLIPtin (TRADJENTA) 5 mg tab Take 1 tablet by mouth once daily. - insulin glargine (BASAGLAR KWIKPEN U-100 INSULIN) 100 unit/mL (3 mL) Inject 40 units in the morning and inject 40 units in the evening - insulin aspart U-100 (NOVOLOG FLEXPEN U-100 INSULIN) 100 unit/mL (3 mL) Inject 29 units subcutaneously three times daily with meals - metoprolol succinate ER (TOPROL XL) 25 mg 24 hr tablet Take 1 tablet by mouth once daily. - ezetimibe (ZETIA) 10 mg tablet TAKE 1 TABLET BY MOUTH EVERY DAY - clopidogrel (PLAVIX) 75 mg tablet TAKE 1 TABLET BY MOUTH EVERY DAY - fluticasone-vilanterol (BREO ELLIPTA) 200-25 mcg/dose inhaler Inhale 1 Inhalation as instructed once daily. - lancets 33 gauge - isosorbide dinitrate (ISORDIL, SORBITRATE) 30 mg tablet - mupirocin (BACTROBAN) 2 % ointment - GAS RELIEF, SIMETHICONE, 80 mg chewable tablet - furosemide (LASIX) 20 mg tablet - ranolazine ER (RANEXA) 500 mg 12 hr tablet - albuterol (PROVENTIL) 2.5 mg /3 mL (0.083 %) nebulizer solution Use 3 mL via nebulizer every 4 hours as needed for wheezing/shortness of breath. - albuterol HFA (PROVENTIL HFA, VENTOLIN HFA) 90 mcg/actuation inhaler Inhale 2 Puffs as instructed every 4 hours as needed for wheezing/shortness of breath. - pen needle, diabetic (COMFORT EZ PEN NEEDLES) 32 gauge x 3/16 ndle Use as directed to inject insulin 5 times daily as directed. insulin: yes, E11.42 - flash glucose scanning reader (FREESTYLE GABRIELLE 2 READER) 1 Each. Use as directed to check blood sugars 3 times daily. Scan FreeStyle Gabrielle 2 sensors at least every 8 hours. - flash glucose sensor (FREESTYLE GABRIELLE 2 SENSOR) kit 2 Each. Use as directed to check blood sugars 3 times daily. Scan FreeStyle Gabrielle 2 sensors at least every 8 hours. Replace sensor every 14 days. - omeprazole (PRILOSEC) 20 mg capsule Take 1 capsule by mouth once daily. - atorvastatin (LIPITOR) 80 mg tablet Take 1 tablet by mouth once daily. - losartan (COZAAR) 50 mg tablet Take 1 tablet by mouth once daily. - Lancets lancets Use as directed to check blood sugar 3 times daily, insulin: yes, E11.9 - Lancing Device (LANCING DEVICE WITH LANCETS) [facility] Use as directed to check blood sugar 3 times daily, insulin: yes, E11.9 - pregabalin (LYRICA) 75 mg capsule Take 1 capsule by mouth twice daily for 180 days. - HYDROcodone-Acetaminoph en (NORCO) 7.5-325 mg per tablet Take 1 tablet by mouth once daily as needed for pain. - isosorbide mononitrate ER (IMDUR) 30 mg 24 hr tablet Take 1 tablet by mouth once daily. - nitroglycerin sublingual (NITROQUICK) 0.4 mg SL tablet Dissolve 1 tablet under the tongue as needed for Chest Pain. If no pain relief call 911. - polyethylene glycol 3350 (MIRALAX, GLYCOLAX) 17 gram packet Take 1 Packet by mouth once daily as needed (constipation). - Multivitamins-Minerals- Lutein (MULTIVITAMIN 50 PLUS) tab Take 1 tablet by mouth on (more content not included)... [facility] KIMBERLY PATEL ([id number]) 1955 [facility] Date Time Provider Department 12/14/21 [facility] During your visit today, we recorded the following information about you: Alexandro Qureshi RN 12/14/2021 10:51 AM Signed Patient is requesting an order for nasal cannulas sent to [facility] respiratory. Pended. Allergies As of Date: 12/14/2021 Noted Allergy Reaction DILAUDID (HYDROMORPHONE (BULK)) 05/30/2012 11 - Vomiting JARDIANCE (EMPAGLIFLOZIN) 11/07/2021 14 - Other: See Comments Comments: UTI METFORMIN 05/30/2012 6 - Diarrhea MORPHINE 05/30/2012 11 - Vomiting ONDANSETRON 02/14/2021 16 - Unknown PENICILLINS 05/30/2012 2 - Rash TRULICITY (DULAGLUTIDE) 11/07/2021 8 - GI Upset Comments: Nausea/Vomiting Date Reviewed: 11/23/2021 Reviewed by: Susan Cuello Formerly [facility] - Fully Assessed Reason for Visit: Orders [681] Primary Visit Diagnosis:Chronic hypoxemic respiratory failure (HCC) [J96.11] Order(s):CONSULT TO [facility] AT HOME [[id number]] Order #: [id number]: 1 Prescriptions as of 12/15/2021 - metoprolol succinate ER (TOPROL XL) 25 mg 24 hr tablet Take 1 tablet by mouth once daily. - ezetimibe (ZETIA) 10 mg tablet TAKE 1 TABLET BY MOUTH EVERY DAY - insulin aspart U-100 (NOVOLOG FLEXPEN U-100 INSULIN) 100 unit/mL (3 mL) Inject 29 units subcutaneously three times daily with meals - insulin glargine (BASAGLAR KWIKPEN U-100 INSULIN) 100 unit/mL (3 mL) Inject 35 units in the morning and inject 36 units in the evening - clopidogrel (PLAVIX) 75 mg tablet TAKE 1 TABLET BY MOUTH EVERY DAY - fluticasone-vilanterol (BREO ELLIPTA) 200-25 mcg/dose inhaler Inhale 1 Inhalation as instructed once daily. - lancets 33 gauge - isosorbide dinitrate (ISORDIL, SORBITRATE) 30 mg tablet - mupirocin (BACTROBAN) 2 % ointment - GAS RELIEF, SIMETHICONE, 80 mg chewable tablet - furosemide (LASIX) 20 mg tablet - ranolazine ER (RANEXA) 500 mg 12 hr tablet - albuterol (PROVENTIL) 2.5 mg /3 mL (0.083 %) nebulizer solution Use 3 mL via nebulizer every 4 hours as needed for wheezing/shortness of breath. - albuterol HFA (PROVENTIL HFA, VENTOLIN HFA) 90 mcg/actuation inhaler Inhale 2 Puffs as instructed every 4 hours as needed for wheezing/shortness of breath. - linaGLIPtin (TRADJENTA) 5 mg tab Take 1 tablet by mouth once daily. - pen needle, diabetic (COMFORT EZ PEN NEEDLES) 32 gauge x 3/16 ndle Use as directed to inject insulin 5 times daily as directed. insulin: yes, E11.42 - flash glucose scanning reader (FREESTYLE GABRIELLE 2 READER) 1 Each. Use as directed to check blood sugars 3 times daily. Scan FreeStyle Gabrielle 2 sensors at least every 8 hours. - flash glucose sensor (FREESTYLE GABRIELLE 2 SENSOR) kit 2 Each. Use as directed to check blood sugars 3 times daily. Scan FreeStyle Gabrielle 2 sensors at least every 8 hours. Replace sensor every 14 days. - omeprazole (PRILOSEC) 20 mg capsule Take 1 capsule by mouth once daily. - atorvastatin (LIPITOR) 80 mg tablet Take 1 tablet by mouth once daily. - losartan (COZAAR) 50 mg tablet Take 1 tablet by mouth once daily. - Lancets lancets Use as directed to check blood sugar 3 times daily, insulin: yes, E11.9 - Lancing Device (LANCING DEVICE WITH LANCETS) misc Use as directed to check blood sugar 3 times daily, insulin: yes, E11.9 - pregabalin (LYRICA) 75 mg capsule Take 1 capsule by mouth twice daily for 180 days. - HYDROcodone-Acetaminoph en (NORCO) 7.5-325 mg per tablet Take 1 tablet by mouth once daily as needed for pain. - isosorbide mononitrate ER (IMDUR) 30 mg 24 hr tablet Take 1 tablet by mouth once daily. - nitroglycerin sublingual (NITROQUICK) 0.4 mg SL tablet Dissolve 1 tablet under the tongue as needed for Chest Pain. If no pain relief call 911. - polyethylene glycol 3350 (MIRALAX, GLYCOLAX) 17 gram packet Take 1 Packet by mouth once daily as needed (constipation). - Multivitamins-Minerals- Lutein (MULTIVITAMIN 50 PLUS) tab Take 1 tablet by mouth once daily. - WALKER ROLLATOR SEAT WITH 6 WHEELS - RED Walker rollator with seat - aspirin, enteric coated (ASPIRIN LOW DOSE) 81 mg EC tablet Take 81 mg by mouth once daily. - ranolazine SR (RANEXA) 1,000 mg tab ER 12 hr Take 1,000 mg by mouth twice daily. Meds Comments as of 07/08/2021: 07/08/21 The medications are managed by this patient by: PATIENT Chiquita Bedolla RPh 02/10/21 The medications are managed by this patient by: PATIENT Chiquita Bedolla PharmD 12/03/20 The medications are managed by this patient by: PATIENT Quique Guzmán, Angela Problem List As Of Date 12/14/2021 Noted Resolved Heart disease (organic) [I51.9] 05/31/2012 08/26/2021 DIYA (obstructive sleep apnea) [G47.33] 05/31/2012 Dyspnea [R06.00] 05/31/2012 Pneumonia due to COVID-19 virus [U07.1, J12.82] 10/13/2020 08/26/2021 CHF (congestive heart failure) (HCC) [I50.9] 10/17/2020 Type 2 diabetes mellitu (more content not included)... Normal [facility] Glucose,Bedsideon 10-12-2021 Glucose [Mass/Vol] 252 mg/dL High 70-100 [facility] Comment on above: Result Comment: Test performed by glucose meter. Results may be 10%-15% lower than serum/plasma values. (CLIA ID [id number]) Performed By: #### L ACTS #### [facility] [address] [place] [address] Basic Metabolic Panelon 12- Anion gap [Moles/Vol] 2 mmol/L Low 3-13 [facility] Comment on above: Performed By: #### H EMDF, LIPA4, LACTS, CMP3M #### [facility] [address] [place] [address] CO2 [Moles/Vol] 30 mmol/L Normal 22-30 [facility] Comment on above: Performed By: #### H EMDF, LIPA4, LACTS, CMP3M #### [facility] [address] [place] [address] Creatinine [Mass/Vol] 1.46 mg/dL High 0.52-1.25 [facility] Comment on above: Performed By: #### H EMDF, LIPA4, LACTS, CMP3M #### [facility] [address] [place] [address] GFR/1.73 sq M.predicted among blacks MDRD (S/P/Bld) [Vol rate/Area] 43.6 mL/min/{1.73_m2} Abnormal >60 [facility] Comment on above: Performed By: #### H EMDF, LIPA4, LACTS, CMP3M #### [facility] [address] [place] [address] GFR/1.73 sq M.predicted among non-blacks MDRD (S/P/Bld) [Vol rate/Area] 37.6 mL/min/{1.73_m2} Abnormal >60 [facility] Comment on above: Result Comment: KDIG O guidelines provide the following GFR categories: Stage GFR(ml/min/1.73 m2) Terms G1 >=90 Normal or high G2 60-89 Mildly decreased* G3a 45-59 Mildly to moderately decreased G3b 30-44 Moderately to severely decreased G4 15-29 Severely decreased G5 <15 Kidney failure *Relative to young adult level. In the absence of evidence of kidney damage, neither GFR category G1 nor G2 fulfill the criteria for CKD. The CKD-EPI equation is validated in individuals 18 years of age and older. Currently the best equation for estimating glomerular filtration rate (GFR) from serum creatinine in children is the Bedside Martinez equation. It is less accurate in patients with extremes of muscle mass, restriction of dietary protein, ingestion of creatine, extra-renal metabolism of creatinine, or treatment with medications that affect renal tubular creatinine secretion. Performed By: #### H EMDF, LIPA4, LACTS, CMP3M #### [facility] [address] [place] [address] Urea nitrogen [Mass/Vol] 27 mg/dL High 9-20 [facility] Comment on above: Performed By: #### H EMDF, LIPA4, LACTS, CMP3M #### [facility] [address] [place] [address] Chloride [Moles/Vol] 105 mmol/L Normal 98-107 [facility] Comment on above: Performed By: #### H EMDF, LIPA4, LACTS, CMP3M #### [facility] [address] [place] [address] Potassium [Moles/Vol] 4.8 mmol/L Normal 3.5-5.1 [facility] Comment on above: Performed By: #### H EMDF, LIPA4, LACTS, CMP3M #### [facility] [address] [place] [address] Sodium [Moles/Vol] 137 mmol/L Normal 135-145 [facility] Comment on above: Performed By: #### H EMDF, LIPA4, LACTS, CMP3M #### [facility] [address] [place] [address] Calcium [Mass/Vol] 8.9 mg/dL Normal 8.4-10.4 [facility] Comment on above: Performed By: #### H EMDF, LIPA4, LACTS, CMP3M #### [facility] [address] [place] [address] Glucose [Mass/Vol] 221 mg/dL High 70-100 [facility] Comment on above: Performed By: #### H EMDF, LIPA4, LACTS, CMP3M #### [facility] [address] [place] [address] Basic Metabolic Panel w/ Ref aidan to MGon 10-11-2021 Anion gap [Moles/Vol] 2 mmol/L Low 3 - 13 mmol/L [facility] Chloride [Moles/Vol] 105 mmol/L 98 - 10 7 mmol/L [facility] CO2 [Moles/Vol] 30 mmol/L 22 - 30 mmol/L [facility] Creatinine [Mass/Vol] 1.46 mg/dL High 0.52 - 1.25 mg/dL [facility] EGFR IF NonAfrican [place] 37.6 mL/min Abnormal >60 [facility] GFR/1.73 sq M.predicted among blacks MDRD (S/P/Bld) [Vol rate/Area] 43.6 mL/min/{1.73_m2} Abnormal >60 [facility] Potassium [Moles/Vol] 4.8 mmol/L 3.5 - 5.1 mmol/L [facility] Sodium [Moles/Vol] 137 mmol/L 135 - 145 mmol/L [facility] Urea nitrogen (BldV) [Mass/Vol] 27 mg/dL High 9 - 20 mg/dL [facility] CBC Auto Differentialon 09-28 Hematocrit (Bld) [Volume fraction] 26.5 % Low 35.0 - 47.0 % [facility] Hemoglobin.gastrointest inal spec 1 Ql (Stl) 8.5 g/dL Low 11.7 - 16.0 g/dL [facility] MCH (RBC) [Entitic mass] 27.1 pg 26.0 - 34.0 pg [facility] MCHC (RBC) [Mass/Vol] 32.1 % 32.0 - 36.0 % [facility] MCV (RBC) [Entitic vol] 84.5 fL 79.0 - 98.0 fL [facility] Platelet distribution width (Bld) [Ratio] 15.9 % High 11.5 - 14.5 % [facility] Platelet mean volume (Bld) [Entitic vol] 6.2 fL Low 7.4 - 10.4 fL [facility] Platelets (Bld) [#/Vol] 363 10*3/uL 140 - 440 10*3/uL [facility] RBC (Bld) [#/Vol] 3.14 10*6/uL Low 3.80 - 5.2 0 10*6/uL [facility] WBC (Bld) [#/Vol] 5.7 10*3/uL 3.6 - 10.7 10*3/uL [facility] Glucose,Bedsideon 10-11-2021 Glucose [Mass/Vol] 213 mg/dL High 70-100 [facility] Comment on above: Result Comment: Test performed by glucose meter. Results may be 10%-15% lower than serum/plasma values. (CLIA ID [id number]) Performed By: #### H EMDF, LIPA4, LACTS, CMP3M #### [facility] [address] [place] [address] Hemogram w/ Autodiffon 10-11 Erythrocyte distribution width (RBC) [Ratio] 15.9 % High 11.5-14.5 [facility] Comment on above: Performed By: #### H EMDF, LIPA4, LACTS, CMP3M #### [facility] [address] [place] [address] Hematocrit (Bld) [Volume fraction] 26.5 % Low 35.0-47.0 [facility] Comment on above: Performed By: #### H EMDF, LIPA4, LACTS, CMP3M #### [facility] [address] [place] [address] Hemoglobin (Bld) [Mass/Vol] 8.5 g/dL Low 11.7-16.0 [facility] Comment on above: Performed By: #### H EMDF, LIPA4, LACTS, CMP3M #### [facility] [address] [place] [place] [address] MCH (RBC) [Entitic mass] 27.1 pg Normal 26.0-34.0 [facility] Comment on above: Performed By: #### H EMDF, LIPA4, LACTS, CMP3M #### [facility] [address] [place] [address] MCHC 32.1 % Normal 32.0-36.0 [facility] Comment on above: Performed By: #### H EMDF, LIPA4, LACTS, CMP3M #### [facility] [address] [place] [address] MCV (RBC) [Entitic vol] 84.5 fL Normal 79.0-98.0 [facility] Comment on above: Performed By: #### H EMDF, LIPA4, LACTS, CMP3M #### [facility] [address] [place] [address] Platelet mean volume (Bld) [Entitic vol] 6.2 fL Low 7.4-10.4 [facility] Comment on above: Performed By: #### H EMDF, LIPA4, LACTS, CMP3M #### [facility] [address] [place] [address] Platelets (Bld) [#/Vol] 363 10*3/uL Normal 140-440 [facility] Comment on above: Performed By: #### H EMDF, LIPA4, LACTS, CMP3M #### [facility] [address] [place] [address] RBC (Bld) [#/Vol] 3.14 10*6/uL Low 3.80-5.20 [facility] Comment on above: Performed By: #### H EMDF, LIPA4, LACTS, CMP3M #### [facility] [address] [place] [address] WBC (Bld) [#/Vol] 5.7 10*3/uL Normal 3.6-10.7 [facility] Comment on above: Performed By: #### H EMDF, LIPA4, LACTS, CMP3M #### [facility] [address] [place] [address] Manual Diffon 10-11-2021 Abs Lymph Cnt 1.3 10*3/uL Normal 1.1-4.5 [facility] Comment on above: Performed By: #### H EMDF, LIPA4, LACTS, CMP3M #### [facility] [address] [place] [address] Abs Monocyte Cnt 0.5 10*3/uL Normal 0.2-1.1 [facility] Comment on above: Performed By: #### H EMDF, LIPA4, LACTS, CMP3M #### [facility] [address] [place] [address] Abs Neutrophile Cnt 3.6 10*3/uL Normal 2.2-8.2 [facility] Comment on above: Performed By: #### H EMDF, LIPA4, LACTS, CMP3M #### [facility] [address] [place] [address] Anisocytosis Slight Normal [facility] Comment on above: Performed By: #### H EMDF, LIPA4, LACTS, CMP3M #### [facility] [address] [place] [address] Elliptocytes Slight Normal [facility] Comment on above: Performed By: #### H EMDF, LIPA4, LACTS, CMP3M #### [facility] [address] [place] [address] Lymphocytes 22 % Normal 20-40 [facility] Comment on above: Performed By: #### H EMDF, LIPA4, LACTS, CMP3M #### [facility] [address] [place] [address] Metamyelocytes 4 % Abnormal <1 [facility] Comment on above: Performed By: #### H EMDF, LIPA4, LACTS, CMP3M #### [facility] [address] [place] [address] Monocytes 9 % Normal 2-10 [facility] Comment on above: Performed By: #### H EMDF, LIPA4, LACTS, CMP3M #### [facility] [address] [place] [address] Myelocytes 1 % Abnormal <1 [facility] Comment on above: Performed By: #### H EMDF, LIPA4, LACTS, CMP3M #### [facility] [address] [place] [address] Ovalocytes Slight Normal [facility] Comment on above: Performed By: #### H EMDF, LIPA4, LACTS, CMP3M #### [facility] [address] [place] [address] Poikilocytosis Slight Normal [facility] Comment on above: Performed By: #### H EMDF, LIPA4, LACTS, CMP3M #### [facility] [address] [place] [address] Polychromasia Slight Normal [facility] Comment on above: Performed By: #### H EMDF, LIPA4, LACTS, CMP3M #### [facility] [address] [place] [address] RBC Morphology ABNORMAL Normal [facility] Comment on above: Performed By: #### H EMDF, LIPA4, LACTS, CMP3M #### [facility] [address] [place] [address] Seg Neutrophils 64 % Normal 40-80 [facility] Comment on above: Performed By: #### H EMDF, LIPA4, LACTS, CMP3M #### [facility] [address] [place] [address] Abs Baso Cnt 0.0 10*3/uL Normal 0.0-0.2 [facility] Comment on above: Performed By: #### H EMDF, LIPA4, LACTS, CMP3M #### [facility] [address] [place] [address] Abs Eosin Cnt 0.0 10*3/uL Normal 0.0-0.5 [facility] Comment on above: Performed By: #### H EMDF, LIPA4, LACTS, CMP3M #### [facility] [address] [place] [address] Bands 0 % Normal 0-3 [facility] Comment on above: Performed By: #### H EMDF, LIPA4, LACTS, CMP3M #### [facility] [address] [place] [address] Basophils 0 % Normal 0-2 [facility] Comment on above: Performed By: #### H EMDF, LIPA4, LACTS, CMP3M #### [facility] [address] [place] [facility] Cells counted 100 Normal [facility] Comment on above: Performed By: #### H EMDF, LIPA4, LACTS, CMP3M #### [facility] [address] [place] [facility] Eosinophils 0 % Low 1-6 [facility] Comment on above: Performed By: #### H EMDF, LIPA4, LACTS, CMP3M #### [facility] [address] [place] [address] Manual Differentialon 2020 Absolute Baso # 0.0 10*3/uL 0.0 - 0.2 10*3/uL [facility] Absolute Eos # 0.0 10*3/uL 0.0 - 0.5 10*3/uL [facility] Absolute Lymph # 1.3 10*3/uL 1.1 - 4.5 10*3/uL [facility] Absolute Graves # 0.5 10*3/uL 0.2 - 1.1 10*3/uL [facility] Absolute Neut # 3.6 10*3/uL 2.2 - 8.2 10*3/uL [facility] Anisocytosis Slight [facility] Bands 0 % 0 - 3 % [facility] Basophils/100 WBC (Bld) 0 % 0 - 2 % [facility] Elliptocytes Slight [facility] Eosinophils/100 WBC (Bld) 0 % Low 1 - 6 % [facility] Lymphocytes/100 WBC (Bld) 22 % 20 - 40 % [facility] Metamyelocytes 4 % Abnormal <1 [facility] Monocytes/100 WBC (Bld) 9 % 2 - 10 % [facility] Myelocytes 1 % Abnormal <1 [facility] Ovalocytes Slight [facility] Poikilocytes Slight [facility] Polychromasia Slight [facility] RBC (Bld) [#/Vol] ABNORMAL [facility] Seg Neutrophils 64 % 40 - 80 % [facility] TOTAL CELLS COUNTED 100 [facility] No Panel Informationon 10-11 Interpretation and review of laboratory results Abnormal [facility] Basic Metabolic Panelon 09-28 Calcium [Mass/Vol] 8.6 mg/dL Normal 8.4-10.4 [facility] Comment on above: Performed By: #### H EMDF, LIPA4, LACTS, CMP3M #### [facility] [address] [place] [address] Anion gap [Moles/Vol] 0 mmol/L Low 3-13 [facility] Comment on above: Performed By: #### H EMDF, LIPA4, LACTS, CMP3M #### [facility] [address] [place] [address] CO2 [Moles/Vol] 30 mmol/L Normal 22-30 [facility] Comment on above: Performed By: #### H EMDF, LIPA4, LACTS, CMP3M #### [facility] [address] [place] [address] Creatinine [Mass/Vol] 1.42 mg/dL High 0.52-1.25 [facility] Comment on above: Performed By: #### H EMDF, LIPA4, LACTS, CMP3M #### [facility] [address] [facility] [address] GFR/1.73 sq M.predicted among blacks MDRD (S/P/Bld) [Vol rate/Area] 45.1 mL/min/{1.73_m2} Abnormal >60 [facility] Comment on above: Performed By: #### H EMDF, LIPA4, LACTS, CMP3M #### [facility] [address] [place] [address] GFR/1.73 sq M.predicted among non-blacks MDRD (S/P/Bld) [Vol rate/Area] 38.9 mL/min/{1.73_m2} Abnormal >60 [facility] Comment on above: Result Comment: KDIG O guidelines provide the following GFR categories: Stage GFR(ml/min/1.73 m2) Terms G1 >=90 Normal or high G2 60-89 Mildly decreased* G3a 45-59 Mildly to moderately decreased G3b 30-44 Moderately to severely decreased G4 15-29 Severely decreased G5 <15 Kidney failure *Relative to young adult level. In the absence of evidence of kidney damage, neither GFR category G1 nor G2 fulfill the criteria for CKD. The CKD-EPI equation is validated in individuals 18 years of age and older. Currently the best equation for estimating glomerular filtration rate (GFR) from serum creatinine in children is the Bedside Martinez equation. It is less accurate in patients with extremes of muscle mass, restriction of dietary protein, ingestion of creatine, extra-renal metabolism of creatinine, or treatment with medications that affect renal tubular creatinine secretion. Performed By: #### H EMDF, LIPA4, LACTS, CMP3M #### [facility] [address] [place] [address] Glucose [Mass/Vol] 206 mg/dL High 70-100 [facility] Comment on above: Performed By: #### H EMDF, LIPA4, LACTS, CMP3M #### [facility] [address] [place] [address] Urea nitrogen [Mass/Vol] 30 mg/dL High 9-20 [facility] Comment on above: Performed By: #### H EMDF, LIPA4, LACTS, CMP3M #### [facility] [address] [place] [address] Chloride [Moles/Vol] 106 mmol/L Normal 98-107 [facility] Comment on above: Performed By: #### H EMDF, LIPA4, LACTS, CMP3M #### [facility] [address] [place] [address] Potassium [Moles/Vol] 5.2 mmol/L High 3.5-5.1 [facility] Comment on above: Performed By: #### H EMDF, LIPA4, LACTS, CMP3M #### [facility] [address] [place] [address] Sodium [Moles/Vol] 136 mmol/L Normal 135-145 [facility] Comment on above: Performed By: #### H EMDF, LIPA4, LACTS, CMP3M #### [facility] [address] [place] [address] Basic Metabolic Panel w/ Ref aidan to MGon 10-10-2021 Anion gap [Moles/Vol] 0 mmol/L Low 3 - 13 mmol/L [facility] Calcium [Mass/Vol] 8.6 mg/dL 8.4 - 10. 4 mg/dL [facility] Chloride [Moles/Vol] 106 mmol/L 98 - 10 7 mmol/L [facility] CO2 [Moles/Vol] 30 mmol/L 22 - 30 mmol/L [facility] Creatinine [Mass/Vol] 1.42 mg/dL High 0.52 - 1.25 mg/dL [facility] EGFR IF NonAfrican [place] 38.9 mL/min Abnormal >60 [facility] GFR/1.73 sq M.predicted among blacks MDRD (S/P/Bld) [Vol rate/Area] 45.1 mL/min/{1.73_m2} Abnormal >60 [facility] Glucose [Mass/Vol] 206 mg/dL High 70 - 100 mg/dL [facility] Interpretation and review of laboratory results Abnormal [facility] Potassium [Moles/Vol] 5.2 mmol/L High 3.5 - 5.1 mmol/L [facility] Sodium [Moles/Vol] 136 mmol/L 135 - 145 mmol/L [facility] Urea nitrogen (BldV) [Mass/Vol] 30 mg/dL High 9 - 20 mg/dL [facility] CBC Auto Differentialon 09-28 Hematocrit (Bld) [Volume fraction] 25.5 % Low 35.0 - 47.0 % [facility] Hemoglobin.gastrointest inal spec 1 Ql (Stl) 8.2 g/dL Low 11.7 - 16.0 g/dL [facility] Interpretation and review of laboratory results Abnormal [facility] MCH (RBC) [Entitic mass] 27.1 pg 26.0 - 34.0 pg [facility] MCHC (RBC) [Mass/Vol] 32.1 % 32.0 - 36.0 % [facility] MCV (RBC) [Entitic vol] 84.3 fL 79.0 - 98.0 fL [facility] Platelet distribution width (Bld) [Ratio] 16.3 % High 11.5 - 14.5 % [facility] Platelet mean volume (Bld) [Entitic vol] 6.1 fL Low 7.4 - 10.4 fL [facility] Platelets (Bld) [#/Vol] 326 10*3/uL 140 - 440 10*3/uL [facility] RBC (Bld) [#/Vol] 3.02 10*6/uL Low 3.80 - 5.2 0 10*6/uL [facility] WBC (Bld) [#/Vol] 5.5 10*3/uL 3.6 - 10.7 10*3/uL [facility] Glucose,Bedsideon 10-10-2021 Glucose [Mass/Vol] 166 mg/dL High 70-[address] [place] [address] Comment on above: Result Comment: Test performed by glucose meter. Results may be 10%-15% lower than serum/plasma values. (CLIA ID [id number]) Performed By: #### H EMDF, LIPA4, LACTS, CMP3M #### [facility] [address] [place] [address] Glucose [Mass/Vol] 261 mg/dL High 70-100 [facility] Comment on above: Result Comment: Test performed by glucose meter. Results may be 10%-15% lower than serum/plasma values. (CLIA ID [id number]) Performed By: #### B GLU #### [facility] [address] [place] [address] Glucose [Mass/Vol] 231 mg/dL High 70-100 [facility] Comment on above: Result Comment: Test performed by glucose meter. Results may be 10%-15% lower than serum/plasma values. (CLIA ID [id number]) Performed By: #### H EMDF, LIPA4, LACTS, CMP3M #### [facility] [address] [place] [address] Glucose [Mass/Vol] 184 mg/dL High 70-100 [facility] Comment on above: Result Comment: Test performed by glucose meter. Results may be 10%-15% lower than serum/plasma values. (CLIA ID [id number]) Performed By: #### H EMDF, LIPA4, LACTS, CMP3M #### [facility] [address] [place] [address] Glucose [Mass/Vol] 228 mg/dL High 70-100 [facility] Comment on above: Result Comment: Test performed by glucose meter. Results may be 10%-15% lower than serum/plasma values. (CLIA ID [id number]) Performed By: #### H EMDF, LIPA4, LACTS, CMP3M #### [facility] [address] [place] [address] Hemogram w/ Autodiffon 10-10 Erythrocyte distribution width (RBC) [Ratio] 16.3 % High 11.5-14.5 [facility] Comment on above: Performed By: #### H EMDF, LIPA4, LACTS, CMP3M #### [facility] [address] [place] [address] Hematocrit (Bld) [Volume fraction] 25.5 % Low 35.0-47.0 [facility] Comment on above: Performed By: #### H EMDF, LIPA4, LACTS, CMP3M #### [facility] [address] [place] [address] Hemoglobin (Bld) [Mass/Vol] 8.2 g/dL Low 11.7-16.0 [facility] Comment on above: Performed By: #### H EMDF, LIPA4, LACTS, CMP3M #### [facility] [address] [place] [address] MCH (RBC) [Entitic mass] 27.1 pg Normal 26.0-34.0 [facility] Comment on above: Performed By: #### H EMDF, LIPA4, LACTS, CMP3M #### [facility] [address] [place] [address] MCHC 32.1 % Normal 32.0-36.0 [facility] Comment on above: Performed By: #### H EMDF, LIPA4, LACTS, CMP3M #### [facility] [address] [place] [address] MCV (RBC) [Entitic vol] 84.3 fL Normal 79.0-98.0 [facility] Comment on above: Performed By: #### H EMDF, LIPA4, LACTS, CMP3M #### [facility] [address] [place] [address] Platelet mean volume (Bld) [Entitic vol] 6.1 fL Low 7.4-10.4 [facility] Comment on above: Performed By: #### H EMDF, LIPA4, LACTS, CMP3M #### [facility] [address] [place] [address] Platelets (Bld) [#/Vol] 326 10*3/uL Normal 140-440 [facility] Comment on above: Performed By: #### H EMDF, LIPA4, LACTS, CMP3M #### [facility] [address] [place] [address] RBC (Bld) [#/Vol] 3.02 10*6/uL Low 3.80-5.20 [facility] Comment on above: Performed By: #### H EMDF, LIPA4, LACTS, CMP3M #### [facility] [address] [place] [address] WBC (Bld) [#/Vol] 5.5 10*3/uL Normal 3.6-10.7 [facility] Comment on above: Performed By: #### H EMDF, LIPA4, LACTS, CMP3M #### [facility] [address] [place] [address] Manual Diffon 10-10-2021 Abs Baso Cnt 0.1 10*3/uL Normal 0.0-0.2 [facility] Comment on above: Performed By: #### H EMDF, LIPA4, LACTS, CMP3M #### [facility] [address] [place] [address] Abs Eosin Cnt 0.1 10*3/uL Normal 0.0-0.5 [facility] Comment on above: Performed By: #### H EMDF, LIPA4, LACTS, CMP3M #### [facility] [address] [place] [address] Abs Lymph Cnt 1.1 10*3/uL Normal 1.1-4.5 [facility] Comment on above: Performed By: #### H EMDF, LIPA4, LACTS, CMP3M #### [facility] [address] [place] [address] Abs Monocyte Cnt 0.3 10*3/uL Normal 0.2-1.1 [facility] Comment on above: Performed By: #### H EMDF, LIPA4, LACTS, CMP3M #### [facility] [address] [place] [address] Abs Neutrophile Cnt 3.8 10*3/uL Normal 2.2-8.2 [facility] Comment on above: Performed By: #### H EMDF, LIPA4, LACTS, CMP3M #### [facility] [address] [place] [address] Anisocytosis Slight Normal [facility] Comment on above: Performed By: #### H EMDF, LIPA4, LACTS, CMP3M #### [facility] [address] [place] [address] Basophils 1 % Normal 0-2 [facility] Comment on above: Performed By: #### H EMDF, LIPA4, LACTS, CMP3M #### [facility] [address] [place] [address] Eosinophils 1 % Normal 1-6 [facility] Comment on above: Performed By: #### H EMDF, LIPA4, LACTS, CMP3M #### [facility] [address] [place] [address] Lymphocytes 20 % Normal 20-40 [facility] Comment on above: Performed By: #### H EMDF, LIPA4, LACTS, CMP3M #### [facility] [address] [place] [address] Metamyelocytes 3 % Abnormal <1 [facility] Comment on above: Performed By: #### H EMDF, LIPA4, LACTS, CMP3M #### [facility] [address] [place] [address] Monocytes 5 % Normal 2-10 [facility] Comment on above: Performed By: #### H EMDF, LIPA4, LACTS, CMP3M #### [facility] [address] [place] [address] Myelocytes 1 % Abnormal <1 [facility] Comment on above: Performed By: #### H EMDF, LIPA4, LACTS, CMP3M #### [facility] [address] [place] [address] Ovalocytes Slight Normal [facility] Comment on above: Performed By: #### H EMDF, LIPA4, LACTS, CMP3M #### [facility] [address] [place] [address] Poikilocytosis Slight Normal [facility] Comment on above: Performed By: #### H EMDF, LIPA4, LACTS, CMP3M #### [facility] [address] [place] [address] Polychromasia Slight Normal [facility] Comment on above: Performed By: #### H EMDF, LIPA4, LACTS, CMP3M #### [facility] [address] [place] [address] RBC Morphology ABNORMAL Normal [facility] Comment on above: Performed By: #### H EMDF, LIPA4, LACTS, CMP3M #### [facility] [address] [place] [address] Seg Neutrophils 69 % Normal 40-80 [facility] Comment on above: Performed By: #### H EMDF, LIPA4, LACTS, CMP3M #### [facility] [address] [place] [address] Bands 0 % Normal 0-3 [facility] Comment on above: Performed By: #### H EMDF, LIPA4, LACTS, CMP3M #### [facility] [address] [place] [address] Cells counted 100 Normal [facility] Comment on above: Performed By: #### H EMDF, LIPA4, LACTS, CMP3M #### [facility] [address] [place] [address] Manual Differentialon 2020 Absolute Baso # 0.1 10*3/uL 0.0 - 0.2 10*3/uL [facility] Absolute Eos # 0.1 10*3/uL 0.0 - 0.5 10*3/uL [facility] Absolute Lymph # 1.1 10*3/uL 1.1 - 4.5 10*3/uL [facility] Absolute Graves # 0.3 10*3/uL 0.2 - 1.1 10*3/uL [facility] Absolute Neut # 3.8 10*3/uL 2.2 - 8.2 10*3/uL [facility] Anisocytosis Slight [facility] Bands 0 % 0 - 3 % [facility] Basophils/100 WBC (Bld) 1 % 0 - 2 % [facility] Eosinophils/100 WBC (Bld) 1 % 1 - 6 % [facility] Interpretation and review of laboratory results Abnormal [facility] Lymphocytes/100 WBC (Bld) 20 % 20 - 40 % [facility] Metamyelocytes 3 % Abnormal <1 [facility] Monocytes/100 WBC (Bld) 5 % 2 - 10 % [facility] Myelocytes 1 % Abnormal <1 [facility] Ovalocytes Slight [facility] Poikilocytes Slight [facility] Polychromasia Slight [facility] RBC (Bld) [#/Vol] ABNORMAL [facility] Seg Neutrophils 69 % 40 - 80 % [facility] TOTAL CELLS COUNTED 100 [facility] PO[facility] Glucoseon 10-10-2021 Glucose [Mass/Vol] 166 mg/dL High 70 - 100 mg/dL [facility] Interpretation and review of laboratory results Abnormal [facility] Glucose [Mass/Vol] 261 mg/dL High 70 - 100 mg/dL [facility] Interpretation and review of laboratory results Abnormal [facility] Glucose [Mass/Vol] 231 mg/dL High 70 - 100 mg/dL [facility] Interpretation and review of laboratory results Abnormal [facility] Glucose [Mass/Vol] 184 mg/dL High 70 - 100 mg/dL [facility] Interpretation and review of laboratory results Abnormal [facility] Basic Metabolic Panelon 12-1 -2020 Anion gap [Moles/Vol] 4 mmol/L Normal 3-13 [facility] Comment on above: Performed By: #### L ACTS #### [facility] [address] [place] [address] Calcium [Mass/Vol] 9.3 mg/dL Normal 8.4-10.4 [facility] Comment on above: Performed By: #### L ACTS #### [facility] [address] [place] [address] CO2 [Moles/Vol] 29 mmol/L Normal 22-30 [facility] Comment on above: Performed By: #### L ACTS #### [facility] [address] [place] [address] Glucose [Mass/Vol] 143 mg/dL High 70-100 [facility] Comment on above: Performed By: #### L ACTS #### [facility] [address] [place] [address] Urea nitrogen [Mass/Vol] 34 mg/dL High 9-20 [facility] Comment on above: Performed By: #### L ACTS #### [facility] [address] [place] [address] Creatinine [Mass/Vol] 1.48 mg/dL High 0.52-1.25 [facility] Comment on above: Performed By: #### L ACTS #### [facility] [address] [place] [address] GFR/1.73 sq M.predicted among blacks MDRD (S/P/Bld) [Vol rate/Area] 42.9 mL/min/{1.73_m2} Abnormal >60 [facility] Comment on above: Performed By: #### L ACTS #### [facility] [address] [place] [address] GFR/1.73 sq M.predicted among non-blacks MDRD (S/P/Bld) [Vol rate/Area] 37.0 mL/min/{1.73_m2} Abnormal >60 [facility] Comment on above: Result Comment: KDIG O guidelines provide the following GFR categories: Stage GFR(ml/min/1.73 m2) Terms G1 >=90 Normal or high G2 60-89 Mildly decreased* G3a 45-59 Mildly to moderately decreased G3b 30-44 Moderately to severely decreased G4 15-29 Severely decreased G5 <15 Kidney failure *Relative to young adult level. In the absence of evidence of kidney damage, neither GFR category G1 nor G2 fulfill the criteria for CKD. The CKD-EPI equation is validated in individuals 18 years of age and older. Currently the best equation for estimating glomerular filtration rate (GFR) from serum creatinine in children is the Bedside Martinez equation. It is less accurate in patients with extremes of muscle mass, restriction of dietary protein, ingestion of creatine, extra-renal metabolism of creatinine, or treatment with medications that affect renal tubular creatinine secretion. Performed By: #### L ACTS #### [facility] [address] [place] [address] Potassium [Moles/Vol] 5.2 mmol/L High 3.5-5.1 [facility] Comment on above: Performed By: #### L ACTS #### [facility] [address] [place] [address] Sodium [Moles/Vol] 140 mmol/L Normal 135-145 [facility] Comment on above: Performed By: #### L ACTS #### [facility] [address] [place] [address] Chloride [Moles/Vol] 106 mmol/L Normal 98-107 [facility] Comment on above: Performed By: #### L ACTS #### [facility] [address] [place] [address] Basic Metabolic Panel w/ Ref aidan to MGon 10-09-2021 Anion gap [Moles/Vol] 4 mmol/L 3 - 13 mmol/L [facility] Calcium [Mass/Vol] 9.3 mg/dL 8.4 - 10. 4 mg/dL [facility] Chloride [Moles/Vol] 106 mmol/L 98 - 10 7 mmol/L [facility] CO2 [Moles/Vol] 29 mmol/L 22 - 30 mmol/L [facility] Creatinine [Mass/Vol] 1.48 mg/dL High 0.52 - 1.25 mg/dL [facility] EGFR IF NonAfrican [place] 37.0 mL/min Abnormal >60 [facility] GFR/1.73 sq M.predicted among blacks MDRD (S/P/Bld) [Vol rate/Area] 42.9 mL/min/{1.73_m2} Abnormal >60 [facility] Glucose [Mass/Vol] 143 mg/dL High 70 - 100 mg/dL [facility] Interpretation and review of laboratory results Abnormal [facility] Potassium [Moles/Vol] 5.2 mmol/L High 3.5 - 5.1 mmol/L [facility] Sodium [Moles/Vol] 140 mmol/L 135 - 145 mmol/L [facility] Urea nitrogen (BldV) [Mass/Vol] 34 mg/dL High 9 - 20 mg/dL [facility] CBC Auto Differentialon 09-28 Hematocrit (Bld) [Volume fraction] 27.0 % Low 35.0 - 47.0 % [facility] Hemoglobin.gastrointest inal spec 1 Ql (Stl) 8.8 g/dL Low 11.7 - 16.0 g/dL [facility] MCH (RBC) [Entitic mass] 27.2 pg 26.0 - 34.0 pg [facility] MCHC (RBC) [Mass/Vol] 32.4 % 32.0 - 36.0 % [facility] MCV (RBC) [Entitic vol] 83.9 fL 79.0 - 98.0 fL [facility] Platelet distribution width (Bld) [Ratio] 16.0 % High 11.5 - 14.5 % [facility] Platelet mean volume (Bld) [Entitic vol] 6.5 fL Low 7.4 - 10.4 fL [facility] Platelets (Bld) [#/Vol] 335 10*3/uL 140 - 440 10*3/uL [facility] RBC (Bld) [#/Vol] 3.22 10*6/uL Low 3.80 - 5.2 0 10*6/uL [facility] WBC (Bld) [#/Vol] 10.6 10*3/uL 3.6 - 10.7 10*3/uL [facility] Glucose,Bedsideon 10-09-2021 Glucose [Mass/Vol] 230 mg/dL High 70-100 [facility] Comment on above: Result Comment: Test performed by glucose meter. Results may be 10%-15% lower than serum/plasma values. (CLIA ID [id number]) Performed By: #### L ACTS #### [facility] [address] [place] [address] Glucose [Mass/Vol] 123 mg/dL High 70-100 [facility] Comment on above: Result Comment: Test performed by glucose meter. Results may be 10%-15% lower than serum/plasma values. (CLIA ID [id number]) Performed By: #### L ACTS #### [facility] [address] [place] [address] Glucose [Mass/Vol] 171 mg/dL High 70-100 [facility] Comment on above: Result Comment: Test performed by glucose meter. Results may be 10%-15% lower than serum/plasma values. (CLIA ID [id number]) Performed By: #### L ACTS #### [facility] [address] [place] [address] Glucose [Mass/Vol] 156 mg/dL High 70-100 [facility] Comment on above: Result Comment: Test performed by glucose meter. Results may be 10%-15% lower than serum/plasma values. (CLIA ID [id number]) Performed By: #### B GLU #### [facility] [address] [place] [address] Hemogram w/ Autodiffon 10-09 Erythrocyte distribution width (RBC) [Ratio] 16.0 % High 11.5-14.5 [facility] Comment on above: Performed By: #### L ACTS #### [facility] [address] [place] [address] Hematocrit (Bld) [Volume fraction] 27.0 % Low 35.0-47.0 [facility] Comment on above: Performed By: #### L ACTS #### [facility] [address] [place] [address] Hemoglobin (Bld) [Mass/Vol] 8.8 g/dL Low 11.7-16.0 [facility] Comment on above: Performed By: #### L ACTS #### [facility] [address] [place] [address] MCH (RBC) [Entitic mass] 27.2 pg Normal 26.0-34.0 [facility] Comment on above: Performed By: #### L ACTS #### [facility] [address] [place] [address] MCHC 32.4 % Normal 32.0-36.0 [facility] Comment on above: Performed By: #### L ACTS #### [facility] [address] [place] [address] MCV (RBC) [Entitic vol] 83.9 fL Normal 79.0-98.0 [facility] Comment on above: Performed By: #### L ACTS #### [facility] [address] [place] [address] Platelet mean volume (Bld) [Entitic vol] 6.5 fL Low 7.4-10.4 [facility] Comment on above: Performed By: #### L ACTS #### [facility] [address] [place] [address] Platelets (Bld) [#/Vol] 335 10*3/uL Normal 140-440 [facility] Comment on above: Performed By: #### L ACTS #### [facility] [address] [place] [address] RBC (Bld) [#/Vol] 3.22 10*6/uL Low 3.80-5.20 [facility] Comment on above: Performed By: #### L ACTS #### [facility] [address] [place] [address] WBC (Bld) [#/Vol] 10.6 10*3/uL Normal 3.6-10.7 [facility] Comment on above: Performed By: #### L ACTS #### [facility] [address] [place] [address] Manual Diffon 10-09-2021 Abs Eosin Cnt 0.3 10*3/uL Normal 0.0-0.5 [facility] Comment on above: Performed By: #### L ACTS #### [facility] [address] [place] [address] Abs Lymph Cnt 2.2 10*3/uL Normal 1.1-4.5 [facility] Comment on above: Performed By: #### L ACTS #### [facility] [address] [place] [address] Abs Monocyte Cnt 0.4 10*3/uL Normal 0.2-1.1 [facility] Comment on above: Performed By: #### L ACTS #### [facility] [address] [place] [address] Abs Neutrophile Cnt 6.9 10*3/uL Normal 2.2-8.2 [facility] Comment on above: Performed By: #### L ACTS #### [facility] [address] [place] [address] Anisocytosis Slight Normal [facility] Comment on above: Performed By: #### L ACTS #### [facility] [address] [place] [address] Bands 3 % Normal 0-3 [facility] Comment on above: Performed By: #### L ACTS #### [facility] [address] [place] [address] Elliptocytes Slight Normal [facility] Comment on above: Performed By: #### L ACTS #### [facility] [address] [place] [address] Eosinophils 3 % Normal 1-6 [facility] Comment on above: Performed By: #### L ACTS #### [facility] [address] [place] [address] Hypochromia Slight Normal [facility] Comment on above: Performed By: #### L ACTS #### [facility] [address] [place] [address] Lymphocytes 21 % Normal 20-40 [facility] Comment on above: Performed By: #### L ACTS #### [facility] [address] [place] [address] Metamyelocytes 4 % Abnormal <1 [facility] Comment on above: Performed By: #### L ACTS #### [facility] [address] [place] [address] Monocytes 4 % Normal 2-10 [facility] Comment on above: Performed By: #### L ACTS #### [facility] [address] [place] [address] Myelocytes 3 % Abnormal <1 [facility] Comment on above: Performed By: #### L ACTS #### [facility] [address] [place] [address] Ovalocytes Slight Normal [facility] Comment on above: Performed By: #### L ACTS #### [facility] [address] [place] [address] Poikilocytosis Slight Normal [facility] Comment on above: Performed By: #### L ACTS #### [facility] [address] [place] [address] Polychromasia Slight Normal [facility] Comment on above: Performed By: #### L ACTS #### [facility] [address] [place] [address] RBC Morphology ABNORMAL Normal [facility] Comment on above: Performed By: #### L ACTS #### [facility] [address] [place] [address] Seg Neutrophils 62 % Normal 40-80 [facility] Comment on above: Performed By: #### L ACTS #### [facility] [address] [place] [address] Abs Baso Cnt 0.0 10*3/uL Normal 0.0-0.2 [facility] Comment on above: Performed By: #### L ACTS #### [facility] [address] [place] [address] Basophils 0 % Normal 0-2 [facility] Comment on above: Performed By: #### L ACTS #### [facility] [address] [place] [address] Cells counted 100 Normal [facility] Comment on above: Performed By: #### L ACTS #### [facility] [address] [place] [address] Manual Differentialon 2020 Absolute Baso # 0.0 10*3/uL 0.0 - 0.2 10*3/uL [facility] Absolute Eos # 0.3 10*3/uL 0.0 - 0.5 10*3/uL [facility] Absolute Lymph # 2.2 10*3/uL 1.1 - 4.5 10*3/uL [facility] Absolute Graves # 0.4 10*3/uL 0.2 - 1.1 10*3/uL [facility] Absolute Neut # 6.9 10*3/uL 2.2 - 8.2 10*3/uL [facility] Anisocytosis Slight [facility] Bands 3 % 0 - 3 % [facility] Basophils/100 WBC (Bld) 0 % 0 - 2 % [facility] Elliptocytes Slight [facility] Eosinophils/100 WBC (Bld) 3 % 1 - 6 % [facility] Hypochromia Slight [facility] Lymphocytes/100 WBC (Bld) 21 % 20 - 40 % [facility] Metamyelocytes 4 % Abnormal <1 [facility] Monocytes/100 WBC (Bld) 4 % 2 - 10 % [facility] Myelocytes 3 % Abnormal <1 [facility] Ovalocytes Slight [facility] Poikilocytes Slight [facility] Polychromasia Slight [facility] RBC (Bld) [#/Vol] ABNORMAL [facility] Seg Neutrophils 62 % 40 - 80 % [facility] TOTAL CELLS COUNTED 100 [facility] No Panel Informationon 10-09 Interpretation and review of laboratory results Abnormal [facility] Glucoseon 10-09-2021 Glucose [Mass/Vol] 228 mg/dL High 70 - 100 mg/dL [facility] Interpretation and review of laboratory results Abnormal [facility] Glucose [Mass/Vol] 230 mg/dL High 70 - 100 mg/dL [facility] Interpretation and review of laboratory results Abnormal [facility] Glucose [Mass/Vol] 123 mg/dL High 70 - 100 mg/dL [facility] Interpretation and review of laboratory results Abnormal [facility] Glucose [Mass/Vol] 171 mg/dL High 70 - 100 mg/dL [facility] Interpretation and review of laboratory results Abnormal [facility] Glucose [Mass/Vol] 156 mg/dL High 70 - 100 mg/dL [facility] Interpretation and review of laboratory results Abnormal [facility] Add On Lab Teston 10-08-2021 Add On Accepted [facility] Add on test from HISon 10-08 Add on test from HIS Accepted Normal [facility] Comment on above: Result Comment: Spec imen available & acceptable for analysis. Performed By: #### L ACTS #### [facility] [address] [place] [address] Basic Metabolic Panelon 09-28 Calcium [Mass/Vol] 8.8 mg/dL Normal 8.4-10.4 [facility] Comment on above: Performed By: #### H EMDF, LIPA4, LACTS, CMP3M #### [facility] [address] [place] [address] Glucose [Mass/Vol] 136 mg/dL High 70-100 [facility] Comment on above: Performed By: #### H EMDF, LIPA4, LACTS, CMP3M #### [facility] [address] [place] [address] Urea nitrogen [Mass/Vol] 35 mg/dL High 9-20 [facility] Comment on above: Performed By: #### H EMDF, LIPA4, LACTS, CMP3M #### [facility] [address] [place] [address] Anion gap [Moles/Vol] 2 mmol/L Low 3-13 [facility] Comment on above: Performed By: #### H EMDF, LIPA4, LACTS, CMP3M #### [facility] [address] [place] [address] CO2 [Moles/Vol] 29 mmol/L Normal 22-30 [facility] Comment on above: Performed By: #### H EMDF, LIPA4, LACTS, CMP3M #### [facility] [address] [place] [address] Creatinine [Mass/Vol] 1.65 mg/dL High 0.52-1.25 [facility] Comment on above: Performed By: #### H EMDF, LIPA4, LACTS, CMP3M #### [facility] [address] [place] [address] GFR/1.73 sq M.predicted among blacks MDRD (S/P/Bld) [Vol rate/Area] 37.6 mL/min/{1.73_m2} Abnormal >60 [facility] Comment on above: Performed By: #### H EMDF, LIPA4, LACTS, CMP3M #### [facility] [address] [place] [address] GFR/1.73 sq M.predicted among non-blacks MDRD (S/P/Bld) [Vol rate/Area] 32.4 mL/min/{1.73_m2} Abnormal >60 [facility] Comment on above: Result Comment: KDIG O guidelines provide the following GFR categories: Stage GFR(ml/min/1.73 m2) Terms G1 >=90 Normal or high G2 60-89 Mildly decreased* G3a 45-59 Mildly to moderately decreased G3b 30-44 Moderately to severely decreased G4 15-29 Severely decreased G5 <15 Kidney failure *Relative to young adult level. In the absence of evidence of kidney damage, neither GFR category G1 nor G2 fulfill the criteria for CKD. The CKD-EPI equation is validated in individuals 18 years of age and older. Currently the best equation for estimating glomerular filtration rate (GFR) from serum creatinine in children is the Bedside Martinez equation. It is less accurate in patients with extremes of muscle mass, restriction of dietary protein, ingestion of creatine, extra-renal metabolism of creatinine, or treatment with medications that affect renal tubular creatinine secretion. Performed By: #### H EMDF, LIPA4, LACTS, CMP3M #### [facility] [address] [place] [address] Potassium [Moles/Vol] 5.0 mmol/L Normal 3.5-5.1 [facility] Comment on above: Performed By: #### H EMDF, LIPA4, LACTS, CMP3M #### [facility] [address] [place] [address] Sodium [Moles/Vol] 135 mmol/L Normal 135-145 [facility] Comment on above: Performed By: #### H EMDF, LIPA4, LACTS, CMP3M #### [facility] [address] [place] [address] Chloride [Moles/Vol] 105 mmol/L Normal 98-107 [facility] Comment on above: Performed By: #### H EMDF, LIPA4, LACTS, CMP3M #### [facility] [address] [place] [address] Basic Metabolic Panel w/ Ref aidan to MGon 10-08-2021 Anion gap [Moles/Vol] 2 mmol/L Low 3 - 13 mmol/L [facility] Calcium [Mass/Vol] 8.8 mg/dL 8.4 - 10. 4 mg/dL [facility] Chloride [Moles/Vol] 105 mmol/L 98 - 10 7 mmol/L [facility] CO2 [Moles/Vol] 29 mmol/L 22 - 30 mmol/L [facility] Creatinine [Mass/Vol] 1.65 mg/dL High 0.52 - 1.25 mg/dL [facility] EGFR IF NonAfrican [place] 32.4 mL/min Abnormal >60 [facility] GFR/1.73 sq M.predicted among blacks MDRD (S/P/Bld) [Vol rate/Area] 37.6 mL/min/{1.73_m2} Abnormal >60 [facility] Glucose [Mass/Vol] 136 mg/dL High 70 - 100 mg/dL [facility] Interpretation and review of laboratory results Abnormal [facility] Potassium [Moles/Vol] 5.0 mmol/L 3.5 - 5.1 mmol/L [facility] Sodium [Moles/Vol] 135 mmol/L 135 - 145 mmol/L [facility] Urea nitrogen (BldV) [Mass/Vol] 35 mg/dL High 9 - 20 mg/dL [facility] CBC Auto Differentialon 09-28 Hematocrit (Bld) [Volume fraction] 25.3 % Low 35.0 - 47.0 % [facility] Hemoglobin.gastrointest inal spec 1 Ql (Stl) 8.1 g/dL Low 11.7 - 16.0 g/dL [facility] Interpretation and review of laboratory results Abnormal [facility] MCH (RBC) [Entitic mass] 26.7 pg 26.0 - 34.0 pg [facility] MCHC (RBC) [Mass/Vol] 32.0 % 32.0 - 36.0 % [facility] MCV (RBC) [Entitic vol] 83.4 fL 79.0 - 98.0 fL [facility] Platelet distribution width (Bld) [Ratio] 16.0 % High 11.5 - 14.5 % [facility] Platelet mean volume (Bld) [Entitic vol] 6.6 fL Low 7.4 - 10.4 fL [facility] Platelets (Bld) [#/Vol] 292 10*3/uL 140 - 440 10*3/uL [facility] RBC (Bld) [#/Vol] 3.03 10*6/uL Low 3.80 - 5.2 0 10*6/uL [facility] WBC (Bld) [#/Vol] 9.9 10*3/uL 3.6 - 10.7 10*3/uL [facility] Glucose,Bedsideon 10-08-2021 Glucose [Mass/Vol] 186 mg/dL High 70-100 [facility] Comment on above: Result Comment: Test performed by glucose meter. Results may be 10%-15% lower than serum/plasma values. (CLIA ID [id number]) Performed By: #### L ACTS #### [facility] [employer] [facility] [address] [place] [address] Glucose [Mass/Vol] 103 mg/dL High 70-100 [facility] Comment on above: Result Comment: Test performed by glucose meter. Results may be 10%-15% lower than serum/plasma values. (CLIA ID [id number]) Performed By: #### L ACTS #### [employer] [address] [place] [address] Glucose [Mass/Vol] 155 mg/dL High 70-[address] [place] [address] Comment on above: Result Comment: Test performed by glucose meter. Results may be 10%-15% lower than serum/plasma values. (CLIA ID [id number]) Performed By: #### L ACTS #### [employer] [facility] [address] [facility] [address] Glucose [Mass/Vol] 114 mg/dL High 70-100 [facility] Comment on above: Result Comment: Test performed by glucose meter. Results may be 10%-15% lower than serum/plasma values. (CLIA ID [id number]) Performed By: #### B GLU #### [facility] [address] [place] [address] Hemogram w/ Autodiffon 10-08 Erythrocyte distribution width (RBC) [Ratio] 16.0 % High 11.5-14.5 [facility] Comment on above: Performed By: #### H EMDF, LIPA4, LACTS, CMP3M #### [facility] [address] [place] [address] Hematocrit (Bld) [Volume fraction] 25.3 % Low 35.0-47.0 [facility] Comment on above: Performed By: #### H EMDF, LIPA4, LACTS, CMP3M #### [facility] [address] [place] [address] Hemoglobin (Bld) [Mass/Vol] 8.1 g/dL Low 11.7-16.0 [facility] Comment on above: Performed By: #### H EMDF, LIPA4, LACTS, CMP3M #### [facility] [address] [place] [address] MCH (RBC) [Entitic mass] 26.7 pg Normal 26.0-34.0 [facility] Comment on above: Performed By: #### H EMDF, LIPA4, LACTS, CMP3M #### [facility] [address] [place] [address] MCHC 32.0 % Normal 32.0-36.0 [facility] Comment on above: Performed By: #### H EMDF, LIPA4, LACTS, CMP3M #### [facility] [address] [place] [address] MCV (RBC) [Entitic vol] 83.4 fL Normal 79.0-98.0 [facility] Comment on above: Performed By: #### H EMDF, LIPA4, LACTS, CMP3M #### [facility] [address] [place] [address] Platelet mean volume (Bld) [Entitic vol] 6.6 fL Low 7.4-10.4 [facility] Comment on above: Performed By: #### H EMDF, LIPA4, LACTS, CMP3M #### [facility] [address] [place] [address] Platelets (Bld) [#/Vol] 292 10*3/uL Normal 140-440 [facility] Comment on above: Performed By: #### H EMDF, LIPA4, LACTS, CMP3M #### [facility] [address] [place] [address] RBC (Bld) [#/Vol] 3.03 10*6/uL Low 3.80-5.20 [facility] Comment on above: Performed By: #### H EMDF, LIPA4, LACTS, CMP3M #### [facility] [address] [place] [address] WBC (Bld) [#/Vol] 9.9 10*3/uL Normal 3.6-10.7 [facility] Comment on above: Performed By: #### H EMDF, LIPA4, LACTS, CMP3M #### [facility] [address] [place] [address] Manual Diffon 10-08-2021 Abs Baso Cnt 0.0 10*3/uL Normal 0.0-0.2 [facility] Comment on above: Performed By: #### H EMDF, LIPA4, LACTS, CMP3M #### [place] [address] [place] [address] Abs Eosin Cnt 0.3 10*3/uL Normal 0.0-0.5 [facility] Comment on above: Performed By: #### H EMDF, LIPA4, LACTS, CMP3M #### [place] [address] [place] [address] Abs Lymph Cnt 1.2 10*3/uL Normal 1.1-4.5 [facility] Comment on above: Performed By: #### H EMDF, LIPA4, LACTS, CMP3M #### [facility] [address] [place] [address] Abs Monocyte Cnt 0.2 10*3/uL Normal 0.2-1.1 [facility] Comment on above: Performed By: #### H EMDF, LIPA4, LACTS, CMP3M #### [facility] [address] [place] [address] Abs Neutrophile Cnt 7.3 10*3/uL Normal 2.2-8.2 [facility] Comment on above: Performed By: #### H EMDF, LIPA4, LACTS, CMP3M #### [facility] [address] [place] [address] Anisocytosis Slight Normal [facility] Comment on above: Performed By: #### H EMDF, LIPA4, LACTS, CMP3M #### [facility] [address] [place] [address] Bands 1 % Normal 0-3 [facility] Comment on above: Performed By: #### H EMDF, LIPA4, LACTS, CMP3M #### [facility] [address] [place] [address] Basophils 0 % Normal 0-2 [facility] Comment on above: Performed By: #### H EMDF, LIPA4, LACTS, CMP3M #### [facility] [address] [place] [address] [place] Cells Slight Normal [facility] Comment on above: Performed By: #### H EMDF, LIPA4, LACTS, CMP3M #### [facility] [address] [place] [address] Cells counted 100 Normal [facility] Comment on above: Performed By: #### H EMDF, LIPA4, LACTS, CMP3M #### [facility] [address] [place] [address] Elliptocytes Slight Normal [facility] Comment on above: Performed By: #### H EMDF, LIPA4, LACTS, CMP3M #### [facility] [address] [place] [address] Eosinophils 3 % Normal 1-6 [facility] Comment on above: Performed By: #### H EMDF, LIPA4, LACTS, CMP3M #### [facility] [address] [place] [address] Hypochromia Slight Normal [facility] Comment on above: Performed By: #### H EMDF, LIPA4, LACTS, CMP3M #### [facility] [address] [place] [address] Lymphocytes 12 % Low 20-40 [facility] Comment on above: Performed By: #### H EMDF, LIPA4, LACTS, CMP3M #### [facility] [address] [place] [address] Metamyelocytes 7 % Abnormal <1 [facility] Comment on above: Performed By: #### H EMDF, LIPA4, LACTS, CMP3M #### [facility] [address] [place] [address] Monocytes 2 % Normal 2-10 [facility] Comment on above: Performed By: #### H EMDF, LIPA4, LACTS, CMP3M #### [facility] [address] [place] [address] Myelocytes 2 % Abnormal <1 [facility] Comment on above: Performed By: #### H EMDF, LIPA4, LACTS, CMP3M #### [facility] [address] [place] [address] Ovalocytes Slight Normal [facility] Comment on above: Performed By: #### H EMDF, LIPA4, LACTS, CMP3M #### [facility] [address] [place] [address] Poikilocytosis Slight Normal [facility] Comment on above: Performed By: #### H EMDF, LIPA4, LACTS, CMP3M #### [facility] [address] [place] [address] RBC Morphology ABNORMAL Normal [facility] Comment on above: Performed By: #### H EMDF, LIPA4, LACTS, CMP3M #### [facility] [address] [place] [address] Seg Neutrophils 73 % Normal 40-80 [facility] Comment on above: Performed By: #### H EMDF, LIPA4, LACTS, CMP3M #### [facility] [address] [place] [address] Manual Differentialon 2020 Absolute Baso # 0.0 10*3/uL 0.0 - 0.2 10*3/uL [facility] Absolute Eos # 0.3 10*3/uL 0.0 - 0.5 10*3/uL [facility] Absolute Lymph # 1.2 10*3/uL 1.1 - 4.5 10*3/uL [facility] Absolute Graves # 0.2 10*3/uL 0.2 - 1.1 10*3/uL [facility] Absolute Neut # 7.3 10*3/uL 2.2 - 8.2 10*3/uL [facility] Anisocytosis Slight [facility] Bands 1 % 0 - 3 % [facility] Basophils/100 WBC (Bld) 0 % 0 - 2 % [facility] [place] Cells Slight [facility] Elliptocytes Slight [facility] Eosinophils/100 WBC (Bld) 3 % 1 - 6 % [facility] Hypochromia Slight [facility] Interpretation and review of laboratory results Abnormal [facility] Lymphocytes/100 WBC (Bld) 12 % Low 20 - 40 % [facility] Metamyelocytes 7 % Abnormal <1 [facility] Monocytes/100 WBC (Bld) 2 % 2 - 10 % [facility] Myelocytes 2 % Abnormal <1 [facility] Ovalocytes Slight [facility] Poikilocytes Slight [facility] RBC (Bld) [#/Vol] ABNORMAL [facility] Seg Neutrophils 73 % 40 - 80 % [facility] TOTAL CELLS COUNTED 100 [facility] POCT Glucoseon 10-08-2021 Glucose [Mass/Vol] 186 mg/dL High 70 - 100 mg/dL [facility] Interpretation and review of laboratory results Abnormal [facility] Glucose [Mass/Vol] 103 mg/dL High 70 - 100 mg/dL [facility] Work Phone: [phone] Interpretation and review of laboratory results Abnormal [facility] Work Phone: [phone] [facility] Work Phone: [phone] Glucose [Mass/Vol] 155 mg/dL High 70 - 100 mg/dL [facility] Interpretation and review of laboratory results Abnormal [facility] Glucose [Mass/Vol] 114 mg/dL High 70 - 100 mg/dL [facility] Work Phone: Interpretation and review of laboratory results Abnormal [facility] Work Phone: [phone] [facility] Work Phone: [phone] TSH without Reflexon 021 Interpretation and review of laboratory results Abnormal [facility] TSH Qn 7.319 u[IU]/mL High 0.465 - 4.680 u[IU]/mL [facility] Thyroid Stim. Hormoneon 09-28 Thyroid Stim. Hormone 7.319 u[IU]/mL High 0.465-4.68 0 [facility] Comment on above: Performed By: #### H EMDF, LIPA4, LACTS, CMP3M #### [facility] [address] [place] [address] Basic Metabolic Panelon 09-28 Anion gap [Moles/Vol] 2 mmol/L Low 3-13 [facility] Comment on above: Performed By: #### H EMDF, LIPA4, LACTS, CMP3M #### [facility] [address] [place] [address] Calcium [Mass/Vol] 9.1 mg/dL Normal 8.4-10.4 [facility] Comment on above: Performed By: #### H EMDF, LIPA4, LACTS, CMP3M #### [facility] [address] [place] [address] CO2 [Moles/Vol] 28 mmol/L Normal 22-30 [facility] Comment on above: Performed By: #### H EMDF, LIPA4, LACTS, CMP3M #### [facility] [address] [place] [address] Creatinine [Mass/Vol] 1.84 mg/dL High 0.52-1.25 [facility] Comment on above: Performed By: #### H EMDF, LIPA4, LACTS, CMP3M #### [facility] [address] [place] [address] GFR/1.73 sq M.predicted among blacks MDRD (S/P/Bld) [Vol rate/Area] 33.0 mL/min/{1.73_m2} Abnormal >60 [facility] Comment on above: Performed By: #### H EMDF, LIPA4, LACTS, CMP3M #### [facility] [address] [place] [address] GFR/1.73 sq M.predicted among non-blacks MDRD (S/P/Bld) [Vol rate/Area] 28.4 mL/min/{1.73_m2} Abnormal >60 [facility] Comment on above: Result Comment: KDIG O guidelines provide the following GFR categories: Stage GFR(ml/min/1.73 m2) Terms G1 >=90 Normal or high G2 60-89 Mildly decreased* G3a 45-59 Mildly to moderately decreased G3b 30-44 Moderately to severely decreased G4 15-29 Severely decreased G5 <15 Kidney failure *Relative to young adult level. In the absence of evidence of kidney damage, neither GFR category G1 nor G2 fulfill the criteria for CKD. The CKD-EPI equation is validated in individuals 18 years of age and older. Currently the best equation for estimating glomerular filtration rate (GFR) from serum creatinine in children is the Bedside Martinez equation. It is less accurate in patients with extremes of muscle mass, restriction of dietary protein, ingestion of creatine, extra-renal metabolism of creatinine, or treatment with medications that affect renal tubular creatinine secretion. Performed By: #### H EMDF, LIPA4, LACTS, CMP3M #### [facility] [address] [place] [address] Glucose [Mass/Vol] 80 mg/dL Normal 70-100 [facility] Comment on above: Performed By: #### H EMDF, LIPA4, LACTS, CMP3M #### [facility] [address] [place] [address] Urea nitrogen [Mass/Vol] 37 mg/dL High 9-20 [facility] Comment on above: Performed By: #### H EMDF, LIPA4, LACTS, CMP3M #### [facility] [address] [place] [address] Chloride [Moles/Vol] 107 mmol/L Normal 98-107 [facility] Comment on above: Performed By: #### H EMDF, LIPA4, LACTS, CMP3M #### [facility] [address] [place] [address] Potassium [Moles/Vol] 4.8 mmol/L Normal 3.5-5.1 [facility] Comment on above: Performed By: #### H EMDF, LIPA4, LACTS, CMP3M #### [facility] [address] [place] [address] Sodium [Moles/Vol] 138 mmol/L Normal 135-145 [facility] Comment on above: Performed By: #### H EMDF, LIPA4, LACTS, CMP3M #### [facility] [address] [place] [address] Basic Metabolic Panel w/ Ref aidan to MGon 10-07-2021 Anion gap [Moles/Vol] 2 mmol/L Low 3 - 13 mmol/L [facility] Calcium [Mass/Vol] 9.1 mg/dL 8.4 - 10. 4 mg/dL [facility] Chloride [Moles/Vol] 107 mmol/L 98 - 10 7 mmol/L [facility] CO2 [Moles/Vol] 28 mmol/L 22 - 30 mmol/L [facility] Creatinine [Mass/Vol] 1.84 mg/dL High 0.52 - 1.25 mg/dL [facility] EGFR IF NonAfrican [place] 28.4 mL/min Abnormal >60 [facility] GFR/1.73 sq M.predicted among blacks MDRD (S/P/Bld) [Vol rate/Area] 33.0 mL/min/{1.73_m2} Abnormal >60 [facility] Glucose [Mass/Vol] 80 mg/dL 70 - 100 mg/dL [facility] Interpretation and review of laboratory results Abnormal [facility] Potassium [Moles/Vol] 4.8 mmol/L 3.5 - 5.1 mmol/L [facility] Sodium [Moles/Vol] 138 mmol/L 135 - 145 mmol/L [facility] Urea nitrogen (BldV) [Mass/Vol] 37 mg/dL High 9 - 20 mg/dL [facility] CBC Auto Differentialon 09-28 Hematocrit (Bld) [Volume fraction] 25.6 % Low 35.0 - 47.0 % [facility] Hemoglobin.gastrointest inal spec 1 Ql (Stl) 8.2 g/dL Low 11.7 - 16.0 g/dL [facility] MCH (RBC) [Entitic mass] 27.1 pg 26.0 - 34.0 pg [facility] MCHC (RBC) [Mass/Vol] 32.2 % 32.0 - 36.0 % [facility] MCV (RBC) [Entitic vol] 84.3 fL 79.0 - 98.0 fL [facility] Platelet distribution width (Bld) [Ratio] 15.9 % High 11.5 - 14.5 % [facility] Platelet mean volume (Bld) [Entitic vol] 7.0 fL Low 7.4 - 10.4 fL [facility] Platelets (Bld) [#/Vol] 236 10*3/uL 140 - 440 10*3/uL [facility] RBC (Bld) [#/Vol] 3.04 10*6/uL Low 3.80 - 5.2 0 10*6/uL [facility] WBC (Bld) [#/Vol] 12.1 10*3/uL High 3.6 - 10.7 10*3/uL [facility] CR Chest PA/LATon 10-07-2021 CR Chest PA/LAT Patient Name: KIMBERLY PATEL Diagnostic Radiology ACCESSION EXAM DATE/TIME PROCEDURE ORDERING PROVIDER [id number] 10/07/2021 15:27 EST CR Chest PA and LAT 58SANIYA RENDON CPT code 03482 Reason For Exam (CR Chest PA and LAT) for lung scan Report CHEST X-RAY PA/LATERAL CLINICAL INDICATION: UTI Frontal and lateral plain films of the chest were obtained. COMPARISON: 10/02/2021 FINDINGS: The cardiac silhouette is within normal limits. No focal consolidation is seen within the lungs. A small left pleural effusion is suspected. No pneumothorax is seen. There are degenerative changes of the spine. IMPRESSION: No focal consolidation seen within the lungs. Possible small left pleural effusion. Report Dictated on Final Dictating Physician: MD DOMÍNGUEZ JONATHAN R Signed Date and Time: 10/07/2021 3:32 pm Signed by: MD DOMÍNGUEZ JONATHAN R Transcribed Date and Time: 10/07/2021 3:33 Normal [facility] CULTURE BLOOD (Two)on 2020 Microscopic examination of blood, culture CULTURE BLOOD (Two) --> Status: F No growth at 5 days. Normal [facility] Comment on above: Performed By: #### L ACTS #### [facility] [address] [place] [address] Chloride, Random Urineon Chloride 58 mmol/L 19 - 209 mmol/L [facility] Work Phone: Chloride, Ur Randomon 2020 Chloride [Moles/Vol] 58 mmol/L Normal 19-209 [facility] Comment on above: Performed By: #### L ACTS #### [facility] [address] [place] [address] Creatinine, Random Urineon 1 12-08-2020 Creatinine (U) [Mass/Vol] 91.1 mg/dL No Range [facility] Work Phone: Creatinine, Ur Randomon 12- Creatinine, Ur Random 91.1 mg/dL Normal No Range [facility] Comment on above: Performed By: #### L ACTS #### [facility] [address] [place] [address] Culture, Blood 2on Blood Culture, Routine No growth at 5 days. [facility] Work Phone: [facility] Work Phone: Glucose,Bedsideon 10-07-2021 Glucose [Mass/Vol] 194 mg/dL High 70-100 [facility] Comment on above: Result Comment: Test performed by glucose meter. Results may be 10%-15% lower than serum/plasma values. (CLIA ID [id number]) Performed By: #### H EMDF, LIPA4, LACTS, CMP3M #### [facility] [address] [place] [address] Glucose [Mass/Vol] 132 mg/dL High 70-100 [facility] Comment on above: Result Comment: Test performed by glucose meter. Results may be 10%-15% lower than serum/plasma values. (CLIA ID [id number]) Performed By: #### H EMDF, LIPA4, LACTS, CMP3M #### [facility] [address] [place] [address] Glucose [Mass/Vol] 79 mg/dL Normal 70-100 [facility] Comment on above: Result Comment: Test performed by glucose meter. Results may be 10%-15% lower than serum/plasma values. (CLIA ID [id number]) Performed By: #### L ACTS #### [facility] [address] [place] [address] Glucose [Mass/Vol] 112 mg/dL High 70-100 [facility] Comment on above: Result Comment: Test performed by glucose meter. Results may be 10%-15% lower than serum/plasma values. (CLIA ID [id number]) Performed By: #### H EMDF, LIPA4, LACTS, CMP3M #### [facility] [address] [place] [address] Hemogram w/ Autodiffon 10-07 Platelets (Bld) [#/Vol] 236 10*3/uL Normal 140-440 [facility] Comment on above: Result Comment: Occa sional fibrin strands noted on smear, no clot detected in tube, may affect platelet count, suggest repeat draw. Performed By: #### H EMDF, LIPA4, LACTS, CMP3M #### [facility] [address] [place] [address] Erythrocyte distribution width (RBC) [Ratio] 15.9 % High 11.5-14.5 [facility] Comment on above: Performed By: #### H EMDF, LIPA4, LACTS, CMP3M #### [facility] [address] [place] [address] Hematocrit (Bld) [Volume fraction] 25.6 % Low 35.0-47.0 [facility] Comment on above: Performed By: #### H EMDF, LIPA4, LACTS, CMP3M #### [facility] [address] [place] [address] Hemoglobin (Bld) [Mass/Vol] 8.2 g/dL Low 11.7-16.0 [facility] Comment on above: Performed By: #### H EMDF, LIPA4, LACTS, CMP3M #### [facility] [address] [place] [address] MCH (RBC) [Entitic mass] 27.1 pg Normal 26.0-34.0 [facility] Comment on above: Performed By: #### H EMDF, LIPA4, LACTS, CMP3M #### [facility] [address] [place] [address] MCHC 32.2 % Normal 32.0-36.0 [facility] Comment on above: Performed By: #### H EMDF, LIPA4, LACTS, CMP3M #### [facility] [facility] [address] [place] [address] MCV (RBC) [Entitic vol] 84.3 fL Normal 79.0-98.0 [facility] Comment on above: Performed By: #### H EMDF, LIPA4, LACTS, CMP3M #### [facility] [address] [place] [address] Platelet mean volume (Bld) [Entitic vol] 7.0 fL Low 7.4-10.4 [facility] Comment on above: Performed By: #### H EMDF, LIPA4, LACTS, CMP3M #### [place] [address] [place] [address] RBC (Bld) [#/Vol] 3.04 10*6/uL Low 3.80-5.20 [facility] Comment on above: Performed By: #### H EMDF, LIPA4, LACTS, CMP3M #### [facility] [address] [place] [address] WBC (Bld) [#/Vol] 12.1 10*3/uL High 3.6-10.7 [facility] Comment on above: Performed By: #### H EMDF, LIPA4, LACTS, CMP3M #### [facility] [address] [place] [address] Manual Diffon 10-07-2021 Abs Baso Cnt 0.1 10*3/uL Normal 0.0-0.2 [facility] Comment on above: Performed By: #### H EMDF, LIPA4, LACTS, CMP3M #### [facility] [address] [place] [address] Abs Eosin Cnt 0.1 10*3/uL Normal 0.0-0.5 [facility] Comment on above: Performed By: #### H EMDF, LIPA4, LACTS, CMP3M #### [facility] [address] [place] [address] Abs Lymph Cnt 1.6 10*3/uL Normal 1.1-4.5 [facility] Comment on above: Performed By: #### H EMDF, LIPA4, LACTS, CMP3M #### [facility] [address] [place] [address] Abs Monocyte Cnt 0.5 10*3/uL Normal 0.2-1.1 [facility] Comment on above: Performed By: #### H EMDF, LIPA4, LACTS, CMP3M #### [facility] [address] [place] [address] Abs Neutrophile Cnt 8.7 10*3/uL High 2.2-8.2 [facility] Comment on above: Performed By: #### H EMDF, LIPA4, LACTS, CMP3M #### [facility] [address] [place] [address] Anisocytosis Slight Normal [facility] Comment on above: Performed By: #### H EMDF, LIPA4, LACTS, CMP3M #### [facility] [address] [place] [address] Bands 1 % Normal 0-3 [facility] Comment on above: Performed By: #### H EMDF, LIPA4, LACTS, CMP3M #### [facility] [address] [place] [address] Basophils 1 % Normal 0-2 [facility] Comment on above: Performed By: #### H EMDF, LIPA4, LACTS, CMP3M #### [facility] [address] [place] [address] [place] Cells Slight Normal [facility] Comment on above: Performed By: #### H EMDF, LIPA4, LACTS, CMP3M #### [facility] [address] [place] [address] Elliptocytes Slight Normal [facility] Comment on above: Performed By: #### H EMDF, LIPA4, LACTS, CMP3M #### [facility] [address] [place] [address] Eosinophils 1 % Normal 1-6 [facility] Comment on above: Performed By: #### H EMDF, LIPA4, LACTS, CMP3M #### [facility] [address] [place] [address] Hypochromia Slight Normal [facility] Comment on above: Performed By: #### H EMDF, LIPA4, LACTS, CMP3M #### [facility] [address] [place] [address] Lymphocytes 13 % Low 20-40 [facility] Comment on above: Performed By: #### H EMDF, LIPA4, LACTS, CMP3M #### [facility] [address] [place] [address] Metamyelocytes 5 % Abnormal <1 [facility] Comment on above: Performed By: #### H EMDF, LIPA4, LACTS, CMP3M #### [facility] [address] [place] [address] Monocytes 4 % Normal 2-10 [facility] Comment on above: Performed By: #### H EMDF, LIPA4, LACTS, CMP3M #### [facility] [address] [place] [address] Myelocytes 4 % Abnormal <1 [facility] Comment on above: Performed By: #### H EMDF, LIPA4, LACTS, CMP3M #### [facility] [address] [place] [address] Ovalocytes Slight Normal [facility] Comment on above: Performed By: #### H EMDF, LIPA4, LACTS, CMP3M #### [facility] [address] [place] [address] Poikilocytosis Slight Normal [facility] Comment on above: Performed By: #### H EMDF, LIPA4, LACTS, CMP3M #### [facility] [address] [place] [address] Polychromasia Slight Normal [facility] Comment on above: Performed By: #### H EMDF, LIPA4, LACTS, CMP3M #### [facility] [address] [place] [address] RBC Morphology ABNORMAL Normal [facility] Comment on above: Performed By: #### H EMDF, LIPA4, LACTS, CMP3M #### [facility] [address] [place] [address] Seg Neutrophils 71 % Normal 40-80 [facility] Comment on above: Performed By: #### H EMDF, LIPA4, LACTS, CMP3M #### [facility] [address] [place] [address] Cells counted 100 Normal [facility] Comment on above: Performed By: #### H EMDF, LIPA4, LACTS, CMP3M #### [facility] [address] [place] [address] Manual Differentialon 2020 Absolute Baso # 0.1 10*3/uL 0.0 - 0.2 10*3/uL [facility] Absolute Eos # 0.1 10*3/uL 0.0 - 0.5 10*3/uL [facility] Absolute Lymph # 1.6 10*3/uL 1.1 - 4.5 10*3/uL [facility] Absolute Graves # 0.5 10*3/uL 0.2 - 1.1 10*3/uL [facility] Absolute Neut # 8.7 10*3/uL High 2.2 - 8.2 10*3/uL [facility] Anisocytosis Slight [facility] Bands 1 % 0 - 3 % [facility] Basophils/100 WBC (Bld) 1 % 0 - 2 % [facility] [place] Cells Slight [facility] Elliptocytes Slight [facility] Eosinophils/100 WBC (Bld) 1 % 1 - 6 % [facility] Hypochromia Slight [facility] Lymphocytes/100 WBC (Bld) 13 % Low 20 - 40 % [facility] Metamyelocytes 5 % Abnormal <1 [facility] Monocytes/100 WBC (Bld) 4 % 2 - 10 % [facility] Myelocytes 4 % Abnormal <1 [facility] Ovalocytes Slight [facility] Poikilocytes Slight [facility] Polychromasia Slight [facility] RBC (Bld) [#/Vol] ABNORMAL [facility] Seg Neutrophils 71 % 40 - 80 % [facility] TOTAL CELLS COUNTED 100 [facility] Microalbumin / Creatinine Ur ine Ratioon 10-07-2021 Albumin/Creatinine DL <= 20 mg/L (24H U) [Mass ratio] 41.1 mg/L High 0.0 - 29.9 mg/L [facility] Albumin/Creatinine DL <= 20 mg/L (U) [Ratio] 44 mg/g High 0.0 - 29.9 mg/g [facility] Creatinine (U) [Mass/Vol] 93.5 mg/dL No Range [facility] Interpretation and review of laboratory results Abnormal [facility] Microalbumin/Creat Ratioon 1 12-08-2020 Microalb/Creat Ratio 44.0 mg/g High 0.0-29.9 [facility] Comment on above: Performed By: #### H EMDF, LIPA4, LACTS, CMP3M #### [facility] [address] [place] [address] Microalbumin, Ur 41.1 mg/L High 0.0-29.9 [facility] Comment on above: Result Comment: Micr oalbumin concentrations <30 are considered normal, 30-300 are considered microalbuminuria (or risk of diabetic nephropathy), and >300 are considered clinical albuminuria (clinical nephropathy). Diabetes Care,27, Supplement 1, M34-30, 2003 Performed By: #### H EMDF, LIPA4, LACTS, CMP3M #### [facility] [address] [place] [address] Creatinine, Ur Random 93.5 mg/dL Normal No Range [facility] Comment on above: Performed By: #### H EMDF, LIPA4, LACTS, CMP3M #### [facility] [address] [place] [address] [place] Lung Scan Perfusion Parti culateon 10-07-2021 [facility] Work Phone: [phone] [facility] Work Phone: [phone] [facility] Work Phone: [place] Pulmonary Perfusion Imagi ngon 10-07-2021 [place] Pulmonary Perfusion Imaging Patient Name: KIMBERLY PATEL Nuclear Medicine ACCESSION EXAM DATE/TIME PROCEDURE ORDERING PROVIDER [id number] 10/07/2021 15:47 EST [place] Pulmonary Perfusion 5813 -SANIYA OSHEA Imaging CPT code 56156 Reason For Exam ([facility] Pulmonary Perfusion Imaging) elevated d dimer, SOB Report Perfusion lung scan (no ventilation images) CLINICAL INDICATION: Shortness of breath, elevated d-dimer Perfusion imaging of the lungs was performed following the intravenous administration of 4.8 mCi of technetium 99 MAA particles. The patient was unable to tolerate ventilation imaging. Comparison is made of the chest x-ray performed the same day. FINDINGS: This study is limited due to the lack of perfusion images, which was unable to be tolerated by the patient. No definite perfusion defects are seen to suggest the presence of pulmonary embolism. There is mild diffuse tracer uptake within the left lung relative to the right which probably reflects a small left pleural effusion suspected on the chest x-ray performed the same day. Report Dictated on Final Dictating Physician: MD DOMÍNGUEZ JONATHAN R Signed Date and Time: 10/07/2021 4:41 pm Signed by: MD DOMÍNGUEZ JONATHAN R Transcribed Date and Time: 10/07/2021 4:42 Normal [facility] No Panel Informationon 10-07 [facility] Interpretation and review of laboratory results Abnormal [facility] No Panel InformationOrdered By: Aj Carl on 10-07-2021 [facility] Osmolality, Urineon 10-07-20 21 Osmolality, Ur 490 mosm/kg 300 - 1000 mosm/kg [facility] Work Phone: [phone] [facility] Work Phone: Osmolality,Urineon Osmolality,Urine 490 mosm/kg Normal 300-1000 [facility] Comment on above: Performed By: #### L ACTS #### [facility] [address] [place] [address] POCT Glucoseon 10-07-2021 Glucose [Mass/Vol] 194 mg/dL High 70 - 100 mg/dL [facility] Interpretation and review of laboratory results Abnormal [facility] Glucose [Mass/Vol] 132 mg/dL High 70 - 100 mg/dL [facility] Work Phone: [phone] Interpretation and review of laboratory results Abnormal [facility] Work Phone: [phone] [facility] Work Phone: Glucose [Mass/Vol] 79 mg/dL 70 - 100 mg/dL [facility] Work Phone: [phone] [facility] Work Phone: [phone] Glucose [Mass/Vol] 112 mg/dL High 70 - 100 mg/dL [facility] Interpretation and review of laboratory results Abnormal [facility] Protein, Ur Randomon 021 Protein, Ur Random 34 mg/dL High No Range [facility] Comment on above: Performed By: #### L ACTS #### [facility] [address] [place] [address] Protein, urine, randomon Interpretation and review of laboratory results Abnormal [facility] Work Phone: [phone] Protein (U) [Mass/Vol] 34 mg/dL High No Range [facility] Work Phone: [phone] Sodium, Ur Randomon 10-07-20 21 Sodium [Moles/Vol] 53 mmol/L Normal 30-90 [facility] Comment on above: Performed By: #### L ACTS #### [facility] [address] [place] [address] Sodium, Urine, RandomOrdered By: Aj Carl on 10-07-2021 Sodium (U) [Moles/Vol] 53 mmol/L 30 - 90 mmol/L [facility] XR CHEST (2 VW)on 10-07-2021 [facility] RAD [facility] Work Phone: [phone] Radiology Study observation (narrative) [facility] Work Phone: [phone] XR CHEST (2 VW)Ordered By: Liliana Domínguez on 10-07-2021 [facility] Work Phone: Basic Metabolic Panelon 12-0 Anion gap [Moles/Vol] 4 mmol/L Normal 3-13 [facility] Comment on above: Performed By: #### H EMDF, LIPA4, LACTS, CMP3M #### [facility] [address] [place] [address] Calcium [Mass/Vol] 8.5 mg/dL Normal 8.4-10.4 [facility] Comment on above: Performed By: #### H EMDF, LIPA4, LACTS, CMP3M #### [facility] [address] [place] [address] CO2 [Moles/Vol] 26 mmol/L Normal 22-30 [facility] Comment on above: Performed By: #### H EMDF, LIPA4, LACTS, CMP3M #### [facility] [address] [place] [address] Glucose [Mass/Vol] 131 mg/dL High 70-100 [facility] Comment on above: Performed By: #### H EMDF, LIPA4, LACTS, CMP3M #### [facility] [address] [place] [address] Urea nitrogen [Mass/Vol] 47 mg/dL High 9-20 [facility] Comment on above: Performed By: #### H EMDF, LIPA4, LACTS, CMP3M #### [facility] [address] [place] [address] Creatinine [Mass/Vol] 2.11 mg/dL High 0.52-1.25 [facility] Comment on above: Performed By: #### H EMDF, LIPA4, LACTS, CMP3M #### [facility] [address] [place] [address] GFR/1.73 sq M.predicted among blacks MDRD (S/P/Bld) [Vol rate/Area] 27.9 mL/min/{1.73_m2} Abnormal >60 [facility] Comment on above: Performed By: #### H EMDF, LIPA4, LACTS, CMP3M #### [facility] [address] [place] [address] GFR/1.73 sq M.predicted among non-blacks MDRD (S/P/Bld) [Vol rate/Area] 24.1 mL/min/{1.73_m2} Abnormal >60 [facility] Comment on above: Result Comment: KDIG O guidelines provide the following GFR categories: Stage GFR(ml/min/1.73 m2) Terms G1 >=90 Normal or high G2 60-89 Mildly decreased* G3a 45-59 Mildly to moderately decreased G3b 30-44 Moderately to severely decreased G4 15-29 Severely decreased G5 <15 Kidney failure *Relative to young adult level. In the absence of evidence of kidney damage, neither GFR category G1 nor G2 fulfill the criteria for CKD. The CKD-EPI equation is validated in individuals 18 years of age and older. Currently the best equation for estimating glomerular filtration rate (GFR) from serum creatinine in children is the Bedside Martinez equation. It is less accurate in patients with extremes of muscle mass, restriction of dietary protein, ingestion of creatine, extra-renal metabolism of creatinine, or treatment with medications that affect renal tubular creatinine secretion. Performed By: #### H EMDF, LIPA4, LACTS, CMP3M #### [facility] [address] [facility] [place] [address] Potassium [Moles/Vol] 5.1 mmol/L Normal 3.5-5.1 [facility] Comment on above: Performed By: #### H EMDF, LIPA4, LACTS, CMP3M #### [facility] [address] [place] [address] Chloride [Moles/Vol] 108 mmol/L High 98-107 [facility] Comment on above: Performed By: #### H EMDF, LIPA4, LACTS, CMP3M #### [facility] [address] [place] [address] Sodium [Moles/Vol] 138 mmol/L Normal 135-145 [facility] Comment on above: Performed By: #### H EMDF, LIPA4, LACTS, CMP3M #### [facility] [address] [place] [address] Basic Metabolic Panel w/ Ref aidan to MGon 10-06-2021 Anion gap [Moles/Vol] 4 mmol/L 3 - 13 mmol/L [facility] Calcium [Mass/Vol] 8.5 mg/dL 8.4 - 10. 4 mg/dL [facility] Chloride [Moles/Vol] 108 mmol/L High 98 - 10 7 mmol/L [facility] CO2 [Moles/Vol] 26 mmol/L 22 - 30 mmol/L [facility] Creatinine [Mass/Vol] 2.11 mg/dL High 0.52 - 1.25 mg/dL [facility] IF NonAfrican [place] 24.1 mL/min Abnormal >60 [facility] GFR/1.73 sq M.predicted among blacks MDRD (S/P/Bld) [Vol rate/Area] 27.9 mL/min/{1.73_m2} Abnormal >60 [facility] Glucose [Mass/Vol] 131 mg/dL High 70 - 100 mg/dL [facility] Interpretation and review of laboratory results Abnormal [facility] Potassium [Moles/Vol] 5.1 mmol/L 3.5 - 5.1 mmol/L [facility] Sodium [Moles/Vol] 138 mmol/L 135 - 145 mmol/L [facility] Urea nitrogen (BldV) [Mass/Vol] 47 mg/dL High 9 - 20 mg/dL [facility] CBC Auto Differentialon Hematocrit (Bld) [Volume fraction] 25.4 % Low 35.0 - 47.0 % [facility] Hemoglobin.gastrointest inal spec 1 Ql (Stl) 8.1 g/dL Low 11.7 - 16.0 g/dL [facility] Interpretation and review of laboratory results Abnormal [facility] MCH (RBC) [Entitic mass] 27.1 pg 26.0 - 34.0 pg [facility] MCHC (RBC) [Mass/Vol] 32.0 % 32.0 - 36.0 % [facility] MCV (RBC) [Entitic vol] 84.7 fL 79.0 - 98.0 fL [facility] Platelet distribution width (Bld) [Ratio] 16.1 % High 11.5 - 14.5 % [facility] Platelet mean volume (Bld) [Entitic vol] 6.7 fL Low 7.4 - 10.4 fL [facility] Platelets (Bld) [#/Vol] 187 10*3/uL 140 - 440 10*3/uL [facility] RBC (Bld) [#/Vol] 3.00 10*6/uL Low 3.80 - 5.2 0 10*6/uL [facility] WBC (Bld) [#/Vol] 8.8 10*3/uL 3.6 - 10.7 10*3/uL [facility] D-Dimer, Innovanceon 021 D-Dimer, Innovance 1.41 mg/L High <0.19-0.50 [facility] Comment on above: Result Comment: Inno garcia D-Dimer values of <0.50 mg/L FEU can be used in combination with a pre-test probability model (e.g. Well's) to exclude pulmonary embolism (PE) disease, as well as an aid in the diagnosis of deep vein thrombosis (DVT). Performed By: #### H EMDF, LIPA4, LACTS, CMP3M #### [facility] [address] [place] [address] D-Dimer, QuantitativeOrdered By: Teetee Oshea on 10-06-2021 D-Dimer, Quant 1.41 mg/L High <0.19 - 0.50 [facility] Interpretation and review of laboratory results Abnormal [facility] D-Dimer, Quantitativeon 12-0 [facility] Glucose,Bedsideon 10-06-2021 Glucose [Mass/Vol] 149 mg/dL High 70-100 [facility] Comment on above: Result Comment: Test performed by glucose meter. Results may be 10%-15% lower than serum/plasma values. (CLIA ID [id number]) Performed By: #### B GLU #### [facility] [address] [place] [address] Glucose [Mass/Vol] 123 mg/dL High 70-100 [facility] Comment on above: Result Comment: Test performed by glucose meter. Results may be 10%-15% lower than serum/plasma values. (CLIA ID [id number]) Performed By: #### L ACTS #### [facility] [address] [place] [address] Glucose [Mass/Vol] 89 mg/dL Normal 70-100 [facility] Comment on above: Result Comment: Test performed by glucose meter. Results may be 10%-15% lower than serum/plasma values. (CLIA ID [id number]) Performed By: #### L ACTS #### [facility] [address] [place] [address] Glucose [Mass/Vol] 100 mg/dL Normal 70-100 [facility] Comment on above: Result Comment: Test performed by glucose meter. Results may be 10%-15% lower than serum/plasma values. (CLIA ID [id number]) Performed By: #### H EMDF, LIPA4, LACTS, CMP3M #### [facility] [address] [place] [address] Hemogram w/ Autodiffon 10-06 Erythrocyte distribution width (RBC) [Ratio] 16.1 % High 11.5-14.5 [facility] Comment on above: Performed By: #### H EMDF, LIPA4, LACTS, CMP3M #### [facility] [address] [place] [address] Hematocrit (Bld) [Volume fraction] 25.4 % Low 35.0-47.0 [facility] Comment on above: Performed By: #### H EMDF, LIPA4, LACTS, CMP3M #### [facility] [address] [place] [address] Hemoglobin (Bld) [Mass/Vol] 8.1 g/dL Low 11.7-16.0 [facility] Comment on above: Performed By: #### H EMDF, LIPA4, LACTS, CMP3M #### [facility] [address] [place] [address] MCH (RBC) [Entitic mass] 27.1 pg Normal 26.0-34.0 [facility] Comment on above: Performed By: #### H EMDF, LIPA4, LACTS, CMP3M #### [facility] [address] [place] [address] MCHC 32.0 % Normal 32.0-36.0 [facility] Comment on above: Performed By: #### H EMDF, LIPA4, LACTS, CMP3M #### [facility] [address] [place] [address] MCV (RBC) [Entitic vol] 84.7 fL Normal 79.0-98.0 [facility] Comment on above: Performed By: #### H EMDF, LIPA4, LACTS, CMP3M #### [facility] [address] [place] [address] Platelet mean volume (Bld) [Entitic vol] 6.7 fL Low 7.4-10.4 [facility] Comment on above: Performed By: #### H EMDF, LIPA4, LACTS, CMP3M #### [facility] [address] [place] [address] Platelets (Bld) [#/Vol] 187 10*3/uL Normal 140-440 [facility] Comment on above: Performed By: #### H EMDF, LIPA4, LACTS, CMP3M #### [facility] [address] [place] [address] RBC (Bld) [#/Vol] 3.00 10*6/uL Low 3.80-5.20 [facility] Comment on above: Performed By: #### H EMDF, LIPA4, LACTS, CMP3M #### [facility] [address] [place] [address] WBC (Bld) [#/Vol] 8.8 10*3/uL Normal 3.6-10.7 [facility] Comment on above: Performed By: #### H EMDF, LIPA4, LACTS, CMP3M #### [facility] [address] [place] [address] Manual Diffon 10-06-2021 Abs Eosin Cnt 0.1 10*3/uL Normal 0.0-0.5 [facility] Comment on above: Performed By: #### H EMDF, LIPA4, LACTS, CMP3M #### [facility] [address] [place] [address] Abs Lymph Cnt 0.8 10*3/uL Low 1.1-4.5 [facility] Comment on above: Performed By: #### H EMDF, LIPA4, LACTS, CMP3M #### [facility] [address] [place] [address] Abs Monocyte Cnt 0.3 10*3/uL Normal 0.2-1.1 [facility] Comment on above: Performed By: #### H EMDF, LIPA4, LACTS, CMP3M #### [facility] [address] [place] [address] Abs Neutrophile Cnt 7.3 10*3/uL Normal 2.2-8.2 [facility] Comment on above: Performed By: #### H EMDF, LIPA4, LACTS, CMP3M #### [facility] [address] [place] [address] Anisocytosis Slight Normal [facility] Comment on above: Performed By: #### H EMDF, LIPA4, LACTS, CMP3M #### [facility] [address] [place] [address] [place] Cells Slight Normal [facility] Comment on above: Performed By: #### H EMDF, LIPA4, LACTS, CMP3M #### [facility] [address] [place] [address] Elliptocytes Slight Normal [facility] Comment on above: Performed By: #### H EMDF, LIPA4, LACTS, CMP3M #### [facility] [address] [place] [address] Eosinophils 1 % Normal 1-6 [facility] Comment on above: Performed By: #### H EMDF, LIPA4, LACTS, CMP3M #### [facility] [address] [place] [address] Lymphocytes 9 % Low 20-40 [facility] Comment on above: Performed By: #### H EMDF, LIPA4, LACTS, CMP3M #### [facility] [address] [place] [address] Metamyelocytes 3 % Abnormal <1 [facility] Comment on above: Performed By: #### H EMDF, LIPA4, LACTS, CMP3M #### [facility] [address] [place] [address] Monocytes 3 % Normal 2-10 [facility] Comment on above: Performed By: #### H EMDF, LIPA4, LACTS, CMP3M #### [facility] [address] [place] [address] Myelocytes 1 % Abnormal <1 [facility] Comment on above: Performed By: #### H EMDF, LIPA4, LACTS, CMP3M #### [facility] [address] [place] [address] Ovalocytes Slight Normal [facility] Comment on above: Performed By: #### H EMDF, LIPA4, LACTS, CMP3M #### [facility] [address] [place] [place] [address] Poikilocytosis Slight Normal [facility] Comment on above: Performed By: #### H EMDF, LIPA4, LACTS, CMP3M #### [facility] [address] [place] [address] RBC Morphology ABNORMAL Normal [facility] Comment on above: Performed By: #### H EMDF, LIPA4, LACTS, CMP3M #### [facility] [address] [place] [address] Seg Neutrophils 83 % High 40-80 [facility] Comment on above: Performed By: #### H EMDF, LIPA4, LACTS, CMP3M #### [facility] [address] [place] [address] Abs Baso Cnt 0.0 10*3/uL Normal 0.0-0.2 [facility] Comment on above: Performed By: #### H EMDF, LIPA4, LACTS, CMP3M #### [facility] [address] [place] [place] [address] Bands 0 % Normal 0-3 [facility] Comment on above: Performed By: #### H EMDF, LIPA4, LACTS, CMP3M #### [facility] [address] [place] [address] Basophils 0 % Normal 0-2 [facility] Comment on above: Performed By: #### H EMDF, LIPA4, LACTS, CMP3M #### [facility] [address] [place] [place] [address] Cells counted 100 Normal [facility] Comment on above: Performed By: #### H EMDF, LIPA4, LACTS, CMP3M #### [facility] [address] [place] [address] Manual Differentialon 2020 Absolute Baso # 0.0 10*3/uL 0.0 - 0.2 10*3/uL [facility] Absolute Eos # 0.1 10*3/uL 0.0 - 0.5 10*3/uL [facility] Absolute Lymph # 0.8 10*3/uL Low 1.1 - 4.5 10*3/uL [facility] Absolute Graves # 0.3 10*3/uL 0.2 - 1.1 10*3/uL [facility] Absolute Neut # 7.3 10*3/uL 2.2 - 8.2 10*3/uL [facility] Anisocytosis Slight [facility] Bands 0 % 0 - 3 % [facility] Basophils/100 WBC (Bld) 0 % 0 - 2 % [facility] James Cells Slight [facility] Elliptocytes Slight [facility] Eosinophils/100 WBC (Bld) 1 % 1 - 6 % [facility] Interpretation and review of laboratory results Abnormal [facility] Lymphocytes/100 WBC (Bld) 9 % Low 20 - 40 % [facility] Metamyelocytes 3 % Abnormal <1 [facility] Monocytes/100 WBC (Bld) 3 % 2 - 10 % [facility] Myelocytes 1 % Abnormal <1 [facility] Ovalocytes Slight [facility] Poikilocytes Slight [facility] RBC (Bld) [#/Vol] ABNORMAL [facility] Seg Neutrophils 83 % High 40 - 80 % [facility] TOTAL CELLS COUNTED 100 [facility] NM Lung Scan Perfusion Parti culateon 10-06-2021 Radiology Study observation (narrative) [facility] Work Phone: POCT Glucoseon 10-06-2021 Glucose [Mass/Vol] 149 mg/dL High 70 - 100 mg/dL [facility] Interpretation and review of laboratory results Abnormal [facility] Glucose [Mass/Vol] 123 mg/dL High 70 - 100 mg/dL [facility] Work Phone: Interpretation and review of laboratory results Abnormal [facility] Work Phone: [facility] Work Phone: Glucose [Mass/Vol] 89 mg/dL 70 - 100 mg/dL [facility] Work Phone: [facility] Work Phone: Glucose [Mass/Vol] 100 mg/dL 70 - 100 mg/dL [facility] Work Phone: [facility] Work Phone: PROCALCITONINon 10-06-2021 Interpretation See Below [facility] Interpretation and review of laboratory results Abnormal [facility] Procalcitonin 9.92 ng/mL High 0.00 - 0.09 ng/mL [facility] Procalcitoninon 10-06-2021 Procalcitonin 9.92 ng/mL High 0.00-0.09 [facility] Comment on above: Performed By: #### H EMDF, LIPA4, LACTS, CMP3M #### [facility] [address] [place] [address] VL LOWER EXTREMITY BILATERAL VENOUS DUPLEXon 10-06-2021 [facility] SB CARDIOLOGY [facility] Work Phone: Radiology Study observation (narrative) [facility] Work Phone: VL LOWER EXTREMITY BILATERAL VENOUS DUPLEXOrdered By: Jose Turcios on 10-06-2021 [facility] Work Phone: VL Venous Duplex US Lower Ex t Bilateralon 10-06-2021 VL Venous Duplex US Lower Ext Bilateral Patient Name: KIMBERLY PATEL Ultrasound ACCESSION EXAM DATE/TIME PROCEDURE ORDERING PROVIDER [id number] 10/06/2021 13:01 EST VL Venous Duplex US 5813 -SANIYA OSHEA Lower Ext Bilateral CPT code 90206 Reason For Exam (VL Venous Duplex US Lower Ext Bilateral) elevated d. dimer, LE swelling Report [facility] -- Lower Extremity Venous Duplex Report Patient Jorge, : 1955 Study 10/06/2021 Name: Kimberly (66yrs) Date: Age: 66 Account: [id number] Gender: F Loc: 243 BP: Ordering Physician: Saniya Oshea Assembly Room Supervisor: ANGEL PrakashT Interpreting Physician: Tam, Jose M.D. -- Location: [facility] -- Indications: Elevated d-dimer lower extremity swelling. -- Conclusions 1. There is no evidence of acute deep or superficial venous thrombosis noted in the right lower extremity. 2. There is no evidence of acute deep or superficial venous thrombosis noted in the left lower extremity. -- History: Risk factors: Immobility. -- Study data: Complete lower extremity venous duplex evaluation. Grayscale 2D imaging, color Doppler imaging, and spectral Doppler analysis. Location: Bedside. Objective: Diagnostic evaluation. Procedure: A vascular evaluation was performed with the patient in the supine position. Images were obtained using a Flinja E9 vascular ultrasound machine. The study was technically limited due to patient positioning, patient anatomy, obesity, and edema. Ultrasound Report -- Venous flow and imaging: + +----- + -------+ -+ +Location +Overall +Properties +Comments + + +----- + -------+ -+ +R CFV +Patent +Normal phasicity; +Body habitus and+ + + +spontaneous; +positioning made+ + + +normal +compression + + + +augmentation; +difficult. + + + +compressible + + + +----- + -------+ -+ +R saphenofemoral+Patent +Compressible + + +junction + + + + + +----- + -------+ -+ +R profunda +Patent + +--- + +femoral + + + + + +----- + -------+ -+ +R FV - prox. +Patent +Compressible + + + +----- + -------+ -+ +R FV - mid +Patent +Normal phasicity; + + + + +spontaneous; + + + + +normal + + + + +augmentation; + + + + +compressible + + + +----- + -------+ -+ +R FV - distal +Patent +Compressible + + + +----- + -------+ -+ +R popliteal +Patent +Normal phasicity; + + + + +spontaneous; + + + + +normal + + + + +augmentation; + + + + +compressible + + + +----- + -------+ -+ +R gastrocnemius +Patent +Compressible + + + +----- + -------+ -+ +R PTV +Patent +Compressible + + + +----- + -------+ -+ +R peroneal +Patent +Compressible + + + +----- + -------+ -+ +R soleal +Difficult study +Compressible + + + +----- + -------+ -+ +R GSV +Patent +Compressible + + + +----- + -------+ -+ +L CFV +Difficult study + +Cat heter in left+ + + + +groin. + + +----- + -------+ -+ +L saphenofemoral+Patent + +--- + +junction + + + + + +----- + -------+ -+ +L profunda +Patent + +--- + +femoral + + + + + +----- + -------+ -+ +L FV - prox. +Patent +Compressible + + + +----- + -------+ -+ +L FV - mid +Patent with +Normal phasicity; + + + +color flow and +spontaneous; + + + +Doppler imaging +normal + + + + +augmen (more content not included)... Normal [facility] Basic Metabolic Panelon 12-0 Calcium [Mass/Vol] 8.5 mg/dL Normal 8.4-10.4 [facility] Comment on above: Performed By: #### B GLU #### [facility] [address] [place] [address] Anion gap [Moles/Vol] 5 mmol/L Normal 3-13 [facility] Comment on above: Performed By: #### B GLU #### [facility] [address] [place] [address] CO2 [Moles/Vol] 25 mmol/L Normal 22-30 [facility] Comment on above: Performed By: #### B GLU #### [facility] [address] [place] [address] Creatinine [Mass/Vol] 2.40 mg/dL High 0.52-1.25 [facility] Comment on above: Performed By: #### B GLU #### [facility] [address] [place] [address] GFR/1.73 sq M.predicted among blacks MDRD (S/P/Bld) [Vol rate/Area] 23.9 mL/min/{1.73_m2} Abnormal >60 [facility] Comment on above: Performed By: #### B GLU #### [facility] [address] [place] [address] GFR/1.73 sq M.predicted among non-blacks MDRD (S/P/Bld) [Vol rate/Area] 20.6 mL/min/{1.73_m2} Abnormal >60 [facility] Comment on above: Result Comment: KDIG O guidelines provide the following GFR categories: Stage GFR(ml/min/1.73 m2) Terms G1 >=90 Normal or high G2 60-89 Mildly decreased* G3a 45-59 Mildly to moderately decreased G3b 30-44 Moderately to severely decreased G4 15-29 Severely decreased G5 <15 Kidney failure *Relative to young adult level. In the absence of evidence of kidney damage, neither GFR category G1 nor G2 fulfill the criteria for CKD. The CKD-EPI equation is validated in individuals 18 years of age and older. Currently the best equation for estimating glomerular filtration rate (GFR) from serum creatinine in children is the Bedside Martinez equation. It is less accurate in patients with extremes of muscle mass, restriction of dietary protein, ingestion of creatine, extra-renal metabolism of creatinine, or treatment with medications that affect renal tubular creatinine secretion. Performed By: #### B GLU #### [facility] [address] [place] [address] Glucose [Mass/Vol] 182 mg/dL High 70-100 [facility] Comment on above: Performed By: #### B GLU #### [facility] [address] [place] [address] Urea nitrogen [Mass/Vol] 55 mg/dL High 9-20 [facility] Comment on above: Performed By: #### B GLU #### [facility] [address] [place] [address] Chloride [Moles/Vol] 108 mmol/L High 98-107 [facility] Comment on above: Performed By: #### B GLU #### [facility] [address] [place] [address] Potassium [Moles/Vol] 5.3 mmol/L High 3.5-5.1 [facility] Comment on above: Performed By: #### B GLU #### [facility] [address] [place] [address] Sodium [Moles/Vol] 139 mmol/L Normal 135-145 [facility] Comment on above: Performed By: #### B GLU #### [facility] [address] [place] [address] Basic Metabolic Panel w/ Ref aidan to MGon 10-05-2021 Anion gap [Moles/Vol] 5 mmol/L 3 - 13 mmol/L [facility] Calcium [Mass/Vol] 8.5 mg/dL 8.4 - 10. 4 mg/dL [facility] Chloride [Moles/Vol] 108 mmol/L High 98 - 10 7 mmol/L [facility] CO2 [Moles/Vol] 25 mmol/L 22 - 30 mmol/L [facility] Creatinine [Mass/Vol] 2.4 mg/dL High 0.52 - 1.25 mg/dL [facility] EGFR IF NonAfrican [place] 20.6 mL/min Abnormal >60 [facility] GFR/1.73 sq M.predicted among blacks MDRD (S/P/Bld) [Vol rate/Area] 23.9 mL/min/{1.73_m2} Abnormal >60 [facility] Glucose [Mass/Vol] 182 mg/dL High 70 - 100 mg/dL [facility] Interpretation and review of laboratory results Abnormal [facility] Potassium [Moles/Vol] 5.3 mmol/L High 3.5 - 5.1 mmol/L [facility] Sodium [Moles/Vol] 139 mmol/L 135 - 145 mmol/L [facility] Urea nitrogen (BldV) [Mass/Vol] 55 mg/dL High 9 - 20 mg/dL [facility] CBC Auto Differentialon 12-0 Absolute Baso # 0.0 10*3/uL 0.0 - 0.2 10*3/uL [facility] Absolute Neut # 8.2 10*3/uL High 1.8 - 7.0 10*3/uL [facility] Basophils/100 WBC (Bld) 0.3 % 0.0 - 2.0 % [facility] Eosinophils (Bld) [#/Vol] 0.2 10*3/uL 0.0 - 0.5 10*3/uL [facility] Eosinophils/100 WBC (Bld) 1.6 % 1.0 - 6.0 % [facility] Granulocytes/100 WBC (Bld) 80.0 % 40.0 - 80.0 % [facility] Hematocrit (Bld) [Volume fraction] 25.5 % Low 35.0 - 47.0 % [facility] Hemoglobin.gastrointest inal spec 1 Ql (Stl) 8.1 g/dL Low 11.7 - 16.0 g/dL [facility] Interpretation and review of laboratory results Abnormal [facility] Lymphocytes (Bld) [#/Vol] 1.0 10*3/uL 1.0 - 4.3 10*3/uL [facility] Lymphocytes/100 WBC (Bld) 10.0 % Low 20.0 - 40.0 % [facility] MCH (RBC) [Entitic mass] 27.0 pg 26.0 - 34.0 pg [facility] MCHC (RBC) [Mass/Vol] 31.6 % Low 32.0 - 36.0 % [facility] MCV (RBC) [Entitic vol] 85.3 fL 79.0 - 98.0 fL [facility] Monocytes (Bld) [#/Vol] 0.8 10*3/uL 0.0 - 0.8 10*3/uL [facility] Monocytes/100 WBC (Bld) 8.1 % 2.0 - 10.0 % [facility] Platelet distribution width (Bld) [Ratio] 16.2 % High 11.5 - 14.5 % [facility] Platelet mean volume (Bld) [Entitic vol] 7.1 fL Low 7.4 - 10.4 fL [facility] Platelets (Bld) [#/Vol] 171 10*3/uL 140 - 440 10*3/uL [facility] RBC (Bld) [#/Vol] 2.99 10*6/uL Low 3.80 - 5.2 0 10*6/uL [facility] WBC (Bld) [#/Vol] 10.3 10*3/uL 3.6 - 10.7 10*3/uL [facility] Glucose,Bedsideon 10-05-2021 Glucose [Mass/Vol] 168 mg/dL [address] Comment on above: Result Comment: Test performed by glucose meter. Results may be 10%-15% lower than serum/plasma values. (CLIA ID [id number]) Performed By: #### B GLU #### [facility] [address] [place] [address] Glucose [Mass/Vol] 115 mg/dL [address] Comment on above: Result Comment: Test performed by glucose meter. Results may be 10%-15% lower than serum/plasma values. (CLIA ID [id number]) Performed By: #### H EMDF, LIPA4, LACTS, CMP3M #### [facility] [employer] [facility] [address] [place] [address] Glucose [Mass/Vol] 187 mg/dL High [address] [place] [address] Comment on above: Result Comment: Test performed by glucose meter. Results may be 10%-15% lower than serum/plasma values. (CLIA ID [id number]) Performed By: #### C MP3M, HEMDF, MDIFF #### [facility] [address] [place] [address] #### PCAL #### [address] Glucose [Mass/Vol] 127 mg/dL High 70-100 [facility] Comment on above: Result Comment: Test performed by glucose meter. Results may be 10%-15% lower than serum/plasma values. (CLIA ID [id number]) Performed By: #### C ROMEO DEY MDIFF #### [facility] [address] [place] [address] #### PCAL #### [address] Hemogram w/ Autodiffon 10-05 Abs Baso Cnt 0.0 10*3/uL Normal 0.0-0.2 [facility] Comment on above: Performed By: #### B GLU #### [facility] [address] [place] [address] Abs Neutrophile Cnt 8.2 10*3/uL High 1.8-7.0 [facility] Comment on above: Performed By: #### B GLU #### [facility] [address] [place] [address] Basophils/100 WBC (Bld) 0.3 % Normal 0.0-2.0 [facility] Comment on above: Performed By: #### B GLU #### [facility] [address] [place] [address] Eosinophils (Bld) [#/Vol] 0.2 10*3/uL Normal 0.0-0.5 [facility] Comment on above: Performed By: #### B GLU #### [facility] [address] [place] [address] Eosinophils/100 WBC (Bld) 1.6 % Normal 1.0-6.0 [facility] Comment on above: Performed By: #### B GLU #### [facility] [address] [place] [address] Erythrocyte distribution width (RBC) [Ratio] 16.2 % High 11.5-14.5 [facility] Comment on above: Performed By: #### B GLU #### [facility] [address] [place] [address] Granulocytes/100 WBC (Bld) 80.0 % Normal 40.0-80.0 [facility] Comment on above: Performed By: #### B GLU #### [facility] [address] [place] [address] Hematocrit (Bld) [Volume fraction] 25.5 % Low 35.0-47.0 [facility] Comment on above: Performed By: #### B GLU #### [facility] [address] [place] [address] Hemoglobin (Bld) [Mass/Vol] 8.1 g/dL Low 11.7-16.0 [facility] Comment on above: Performed By: #### B GLU #### [facility] [address] [place] [address] Lymphocytes (Bld) [#/Vol] 1.0 10*3/uL Normal 1.0-4.3 [facility] Comment on above: Performed By: #### B GLU #### [facility] [address] [place] [address] Lymphocytes/100 WBC (Bld) 10.0 % Low 20.0-40.0 [facility] Comment on above: Performed By: #### B GLU #### [facility] [address] [place] [address] MCH (RBC) [Entitic mass] 27.0 pg Normal 26.0-34.0 [facility] Comment on above: Performed By: #### B GLU #### [facility] [address] [place] [address] MCHC 31.6 % Low 32.0-36.0 [facility] Comment on above: Performed By: #### B GLU #### [facility] [address] [place] [address] MCV (RBC) [Entitic vol] 85.3 fL Normal 79.0-98.0 [facility] Comment on above: Performed By: #### B GLU #### [facility] [address] [place] [address] Monocytes (Bld) [#/Vol] 0.8 10*3/uL Normal 0.0-0.8 [facility] Comment on above: Performed By: #### B GLU #### [facility] [address] [place] [address] Monocytes/100 WBC (Bld) 8.1 % Normal 2.0-10.0 [facility] Comment on above: Performed By: #### B GLU #### [facility] [address] [place] [address] Platelet mean volume (Bld) [Entitic vol] 7.1 fL Low 7.4-10.4 [facility] Comment on above: Performed By: #### B GLU #### [facility] [address] [place] [address] Platelets (Bld) [#/Vol] 171 10*3/uL Normal 140-440 [facility] Comment on above: Performed By: #### B GLU #### [facility] [address] [place] [address] RBC (Bld) [#/Vol] 2.99 10*6/uL Low 3.80-5.20 [facility] Comment on above: Performed By: #### B GLU #### [facility] [address] [place] [address] WBC (Bld) [#/Vol] 10.3 10*3/uL Normal 3.6-10.7 [facility] Comment on above: Performed By: #### B GLU #### [facility] [address] [place] [address] POCT Glucoseon 10-05-2021 Glucose [Mass/Vol] 168 mg/dL High 70 - 100 mg/dL [facility] Interpretation and review of laboratory results Abnormal [facility] Glucose [Mass/Vol] 115 mg/dL High 70 - 100 mg/dL [facility] Interpretation and review of laboratory results Abnormal [facility] Glucose [Mass/Vol] 187 mg/dL High 70 - 100 mg/dL [facility] Interpretation and review of laboratory results Abnormal [facility] Glucose [Mass/Vol] 127 mg/dL High 70 - 100 mg/dL [facility] Interpretation and review of laboratory results Abnormal [facility] Potassiumon 10-05-2021 Potassium [Moles/Vol] 5.0 mmol/L Normal 3.5-5.1 [facility] Comment on above: Performed By: #### B GLU #### [facility] [address] [place] [address] Potassium [Moles/Vol] 5.0 mmol/L 3.5 - 5.1 mmol/L [facility] Procalcitoninon 10-05-2021 Interpretation See Below Normal [facility] Comment on above: Result Comment: PCT <0.50 = Low risk of severe sepsis and/or septic shock. PCT >2.00 = High risk of severe sepsis and/or septic shock. Performed By: #### H EMDF, LIPA4, LACTS, CMP3M #### [facility] [address] [place] [address] Basic Metabolic Panelon 12-0 Anion gap [Moles/Vol] 5 mmol/L Normal 3-13 [facility] Comment on above: Performed By: #### H EMDF, LIPA4, LACTS, CMP3M #### [facility] [address] [place] [address] Calcium [Mass/Vol] 8.2 mg/dL Low 8.4-10.4 [facility] Comment on above: Performed By: #### H EMDF, LIPA4, LACTS, CMP3M #### [facility] [address] [place] [address] CO2 [Moles/Vol] 24 mmol/L Normal 22-30 [facility] Comment on above: Performed By: #### H EMDF, LIPA4, LACTS, CMP3M #### [facility] [address] [place] [address] Creatinine [Mass/Vol] 2.65 mg/dL High 0.52-1.25 [facility] Comment on above: Performed By: #### H EMDF, LIPA4, LACTS, CMP3M #### [facility] [address] [place] [address] GFR/1.73 sq M.predicted among blacks MDRD (S/P/Bld) [Vol rate/Area] 21.2 mL/min/{1.73_m2} Abnormal >60 [facility] Comment on above: Performed By: #### H EMDF, LIPA4, LACTS, CMP3M #### [facility] [address] [place] [address] GFR/1.73 sq M.predicted among non-blacks MDRD (S/P/Bld) [Vol rate/Area] 18.3 mL/min/{1.73_m2} Abnormal >60 [facility] Comment on above: Result Comment: KDIG O guidelines provide the following GFR categories: Stage GFR(ml/min/1.73 m2) Terms G1 >=90 Normal or high G2 60-89 Mildly decreased* G3a 45-59 Mildly to moderately decreased G3b 30-44 Moderately to severely decreased G4 15-29 Severely decreased G5 <15 Kidney failure *Relative to young adult level. In the absence of evidence of kidney damage, neither GFR category G1 nor G2 fulfill the criteria for CKD. The CKD-EPI equation is validated in individuals 18 years of age and older. Currently the best equation for estimating glomerular filtration rate (GFR) from serum creatinine in children is the Bedside Martinez equation. It is less accurate in patients with extremes of muscle mass, restriction of dietary protein, ingestion of creatine, extra-renal metabolism of creatinine, or treatment with medications that affect renal tubular creatinine secretion. Performed By: #### H EMDF, LIPA4, LACTS, CMP3M #### [facility] [address] [place] [address] Glucose [Mass/Vol] 167 mg/dL High 70-100 [facility] Comment on above: Performed By: #### H EMDF, LIPA4, LACTS, CMP3M #### [facility] [address] [place] [address] Urea nitrogen [Mass/Vol] 57 mg/dL High 9-20 [facility] Comment on above: Performed By: #### H EMDF, LIPA4, LACTS, CMP3M #### [facility] [address] [place] [address] Chloride [Moles/Vol] 106 mmol/L Normal 98-107 [facility] Comment on above: Performed By: #### H EMDF, LIPA4, LACTS, CMP3M #### [facility] [address] [place] [address] Potassium [Moles/Vol] 5.0 mmol/L Normal 3.5-5.1 [facility] Comment on above: Performed By: #### H EMDF, LIPA4, LACTS, CMP3M #### [facility] [address] [place] [address] Sodium [Moles/Vol] 136 mmol/L Normal 135-145 [facility] Comment on above: Performed By: #### H EMDF, LIPA4, LACTS, CMP3M #### [facility] [address] [place] [place] [address] Basic Metabolic Panel w/ Ref aidan to MGon 10-04-2021 Anion gap [Moles/Vol] 5 mmol/L 3 - 13 mmol/L [facility] Calcium [Mass/Vol] 8.2 mg/dL Low 8.4 - 10. 4 mg/dL [facility] Chloride [Moles/Vol] 106 mmol/L 98 - 10 7 mmol/L [facility] CO2 [Moles/Vol] 24 mmol/L 22 - 30 mmol/L [facility] Creatinine [Mass/Vol] 2.65 mg/dL High 0.52 - 1.25 mg/dL [facility] EGFR IF NonAfrican [place] 18.3 mL/min Abnormal >60 [facility] GFR/1.73 sq M.predicted among blacks MDRD (S/P/Bld) [Vol rate/Area] 21.2 mL/min/{1.73_m2} Abnormal >60 [facility] Glucose [Mass/Vol] 167 mg/dL High 70 - 100 mg/dL [facility] Interpretation and review of laboratory results Abnormal [facility] Potassium [Moles/Vol] 5.0 mmol/L 3.5 - 5.1 mmol/L [facility] Sodium [Moles/Vol] 136 mmol/L 135 - 145 mmol/L [facility] Urea nitrogen (BldV) [Mass/Vol] 57 mg/dL High 9 - 20 mg/dL [facility] Brain Natriuretic Peptideon 10-04-2021 Interpretation and review of laboratory results Abnormal [facility] Natriuretic peptide B (Bld) [Mass/Vol] 6910 pg/mL High 0 - 125 pg/mL [facility] CBC Auto Differentialon 12-0 Absolute Baso # 0.0 10*3/uL 0.0 - 0.2 10*3/uL [facility] Absolute Neut # 14.2 10*3/uL High 1.8 - 7.0 10*3/uL [facility] Basophils/100 WBC (Bld) 0.3 % 0.0 - 2.0 % [facility] Eosinophils (Bld) [#/Vol] 0.2 10*3/uL 0.0 - 0.5 10*3/uL [facility] Eosinophils/100 WBC (Bld) 1.4 % 1.0 - 6.0 % [facility] Granulocytes/100 WBC (Bld) 86.2 % High 40.0 - 80.0 % [facility] Hematocrit (Bld) [Volume fraction] 25.7 % Low 35.0 - 47.0 % [facility] Hemoglobin.gastrointest inal spec 1 Ql (Stl) 8.3 g/dL Low 11.7 - 16.0 g/dL [facility] Interpretation and review of laboratory results Abnormal [facility] Lymphocytes (Bld) [#/Vol] 1.2 10*3/uL 1.0 - 4.3 10*3/uL [facility] Lymphocytes/100 WBC (Bld) 7.5 % Low 20.0 - 40.0 % [facility] MCH (RBC) [Entitic mass] 27.2 pg 26.0 - 34.0 pg [facility] MCHC (RBC) [Mass/Vol] 32.3 % 32.0 - 36.0 % [facility] MCV (RBC) [Entitic vol] 84.3 fL 79.0 - 98.0 fL [facility] Monocytes (Bld) [#/Vol] 0.8 10*3/uL 0.0 - 0.8 10*3/uL [facility] Monocytes/100 WBC (Bld) 4.6 % 2.0 - 10.0 % [facility] Platelet distribution width (Bld) [Ratio] 16.3 % High 11.5 - 14.5 % [facility] Platelet mean volume (Bld) [Entitic vol] 7.0 fL Low 7.4 - 10.4 fL [facility] Platelets (Bld) [#/Vol] 178 10*3/uL 140 - 440 10*3/uL [facility] RBC (Bld) [#/Vol] 3.05 10*6/uL Low 3.80 - 5.2 0 10*6/uL [facility] WBC (Bld) [#/Vol] 16.5 10*3/uL High 3.6 - 10.7 10*3/uL [facility] CULTURE BLOODon 10-04-2021 Microscopic examination of blood, culture CULTURE BLOOD --> Status: F Escherichia coli DETECTED. Presumptive identification performed using [employer] FilmArray PCR methodology; confirmatory identification to follow. _ The [employer] BCID2 PCR Panel can detect the following targets: E. faecalis, E. faecium, Staphylococcus spp., S. aureus, S. epidermidis, S. lugdunensis, Streptococcus spp., S. pyogenes (Group A), S. agalactiae (Group B), S. pneumoniae, A. baumannii complex, B. fragilis, H. influenzae, N. meningitidis (encapsulated), P. aeruginosa, S. maltophilia, Enterobacterales, E. cloacae complex, E. coli, K. aerogenes, K. oxytoca, K. pneumoniae, Proteus spp., Salmonella spp., S. marcescens, C. albicans, C. auris, C. glabrata, C. krusei, C. parapsilosis, C. tropicalis, C. neoformans/gattii, and antimicrobial resistance genes: mecA/C, Alex/B, CTX-M, IMP, KPC, NDM, OXA-48-like, VIM, and mcr-1. Presumptive identification performed using [employer] S[pecialistse FilmArray PCR methodology; confirmatory identification to follow. _ The [employer] BCID2 PCR Panel can detect the following targets: E. faecalis, E. faecium, Staphylococcus spp., S. aureus, S. epidermidis, S. lugdunensis, Streptococcus spp., S. pyogenes (Group A), S. agalactiae (Group B), S. pneumoniae, A. baumannii complex, B. fragilis, H. influenzae, N. meningitidis (encapsulated), P. aeruginosa, S. maltophilia, Enterobacterales, E. cloacae complex, E. coli, K. aerogenes, K. oxytoca, K. pneumoniae, Proteus spp., Salmonella spp., S. marcescens, C. albicans, C. auris, C. glabrata, C. krusei, C. parapsilosis, C. tropicalis, C. neoformans/gattii, and antimicrobial resistance genes: mecA/C, Alex/B, CTX-M, IMP, KPC, NDM, OXA-48-like, VIM, and mcr-1. 1 Organism Escherichia coli Isolated: 1 Organism Antibiotic Result Intrp Ampicillin(ASHU) 8 S Cefazolin(ASHU) <= 4 S Ceftriaxone(ASHU) <= 1 S Cefepime(ASHU) <= 1 S Aztreonam(ASHU) <= 1 S Ampicillin/Sulbactam(N[place] C) <= 2 S Pip/Tazobactam(ASHU) <= 4 S Meropenem(ASHU) <= 0.25 S Ciprofloxacin(ASHU) <= 0.25 S Gentamicin(ASHU) <= 1 S Amikacin(ASHU) <= 2 S Normal [facility] Comment on above: Performed By: #### L ACTS #### [facility] [address] [place] [address] Culture, Blood 1on 1 Blood Culture, Routine Abnormal [facility] Work Phone: Blood Culture, Routine Escherichia coli Abnormal [facility] Work Phone: Blood Culture, Routine Isolated: [facility] Work Phone: [facility] Work Phone: [phone] D-Dimer, Innovanceon 021 D-Dimer, Innovance 1.09 mg/L High <0.19-0.50 [facility] Comment on above: Result Comment: Inno garcia D-Dimer values of <0.50 mg/L FEU can be used in combination with a pre-test probability model (e.g. Well's) to exclude pulmonary embolism (PE) disease, as well as an aid in the diagnosis of deep vein thrombosis (DVT). Performed By: #### B GLU #### [facility] [address] [place] [address] D-Dimer, Quantitativeon D-Dimer, Quant 1.09 mg/L High <0.19 - 0.50 [facility] Interpretation and review of laboratory results Abnormal [facility] Glucose,Bedsideon 10-04-2021 Glucose [Mass/Vol] 301 mg/dL High 70-100 [facility] Comment on above: Result Comment: Test performed by glucose meter. Results may be 10%-15% lower than serum/plasma values. (CLIA ID [id number]) Performed By: #### C ROMEO DEY MDIFF #### [facility] [address] [place] [address] #### PCAL #### [facility] [address] [place] [address] Glucose [Mass/Vol] 266 mg/dL High 70-100 [facility] Comment on above: Result Comment: Test performed by glucose meter. Results may be 10%-15% lower than serum/plasma values. (CLIA ID [id number]) Performed By: #### C ROMEO DEY, MDIFF #### [facility] [address] [place] [address] #### PCAL #### [facility] [address] [place] [address] Glucose [Mass/Vol] 215 mg/dL High 70-100 [facility] Comment on above: Result Comment: Test performed by glucose meter. Results may be 10%-15% lower than serum/plasma values. (CLIA ID [id number]) Performed By: #### B GLU #### [facility] [address] [place] [address] Glucose [Mass/Vol] 132 mg/dL High 70-100 [facility] Comment on above: Result Comment: Test performed by glucose meter. Results may be 10%-15% lower than serum/plasma values. (CLIA ID [id number]) Performed By: #### H EMDF, LIPA4, LACTS, CMP3M #### [facility] [address] [place] [address] Glucose [Mass/Vol] 155 mg/dL High 70-100 [facility] Comment on above: Result Comment: Test performed by glucose meter. Results may be 10%-15% lower than serum/plasma values. (CLIA ID [id number]) Performed By: #### H EMDF, LIPA4, LACTS, CMP3M #### [place] [address] [place] [address] Hemogram w/ Autodiffon 10-04 Abs Baso Cnt 0.0 10*3/uL Normal 0.0-0.2 [facility] Comment on above: Performed By: #### C MP3Travis HEMELLEN, MDIFF #### [place] [address] [facility] [address] #### PCAL #### [address] Abs Neutrophile Cnt 14.2 10*3/uL High 1.8-7.0 [facility] Comment on above: Performed By: #### C MP3Travis HEMDF, MDIFF #### [place] [address] [place] [address] #### PCAL #### [address] Basophils/100 WBC (Bld) 0.3 % Normal 0.0-2.0 [facility] Comment on above: Performed By: #### C MP3M HEMDF, MDIFF #### [facility] [address] [place] [address] #### PCAL #### [place] [address] [place], [place] Eosinophils (Bld) [#/Vol] 0.2 10*3/uL Normal 0.0-0.5 [facility] Comment on above: Performed By: #### C ROMEO DEY MDIFF #### [facility] [address] [place] [address] #### PCAL #### [place] [address] [place], [place] Eosinophils/100 WBC (Bld) 1.4 % Normal 1.0-6.0 [facility] Comment on above: Performed By: #### C ROMEO DEY MDIFF #### [place] [address] [place] [address] #### PCAL #### [place] [address] [place], [place] Erythrocyte distribution width (RBC) [Ratio] 16.3 % High 11.5-14.5 [facility] Comment on above: Performed By: #### C ROMEO DEY MDIFF #### [place] [address] [place] [address] #### PCAL #### [place] [address] [place], [place] Granulocytes/100 WBC (Bld) 86.2 % High 40.0-80.0 [facility] Comment on above: Performed By: #### C ROMEO DEY MDIFF #### [place] [address] [place] [address] #### PCAL #### [place] [address] [place], [place] Hematocrit (Bld) [Volume fraction] 25.7 % Low 35.0-47.0 [facility] Comment on above: Performed By: #### C ROMEO DEY MDIFF #### [place] [address] [place] [address] #### PCAL #### [facility] [address] [place], [place] Hemoglobin (Bld) [Mass/Vol] 8.3 g/dL Low 11.7-16.0 [facility] Comment on above: Performed By: #### C ROMEO DEY MDIFF #### [facility] [address] [place] [address] #### PCAL #### [facility] [address] [place], [place] Lymphocytes (Bld) [#/Vol] 1.2 10*3/uL Normal 1.0-4.3 [facility] Comment on above: Performed By: #### ROMEO LOPEZ MDIFF #### [facility] [address] [place] [address] #### PCAL #### [place] [address] [place], [place] Lymphocytes/100 WBC (Bld) 7.5 % Low 20.0-40.0 [facility] Comment on above: Performed By: #### C ROMEO DEY MDIFF #### [facility] [address] [place] [address] #### PCAL #### [place] [address] [place], [place] MCH (RBC) [Entitic mass] 27.2 pg Normal 26.0-34.0 [facility] Comment on above: Performed By: #### C ROMEO DEY MDIFF #### [facility] [address] [place] [address] #### PCAL #### [place] [address] [place], [place] MCHC 32.3 % Normal 32.0-36.0 [facility] Comment on above: Performed By: #### C ROMEO DEY MDIFF #### [facility] [address] [place] [address] #### PCAL #### [place] [address] [place], [place] MCV (RBC) [Entitic vol] 84.3 fL Normal 79.0-98.0 [facility] Comment on above: Performed By: #### C ROMEO DEY MDIFF #### [facility] [address] [place] [address] #### PCAL #### [facility] [address] [place], [place] Monocytes (Bld) [#/Vol] 0.8 10*3/uL Normal 0.0-0.8 [facility] Comment on above: Performed By: #### C ROMEO DEY MDIFF #### [facility] [address] [place] [address] #### PCAL #### [place] [address] [place], [place] Monocytes/100 WBC (Bld) 4.6 % Normal 2.0-10.0 [facility] Comment on above: Performed By: #### C ROMEO DEY MDIFF #### [facility] [address] [place] [address] #### PCAL #### [place] [address] [place], [place] Platelet mean volume (Bld) [Entitic vol] 7.0 fL Low 7.4-10.4 [facility] Comment on above: Performed By: #### ROMEO LOPEZ MDIFF #### [place] [address] [place] [address] #### PCAL #### [place] [address] [place], [place] Platelets (Bld) [#/Vol] 178 10*3/uL Normal 140-440 [facility] Comment on above: Performed By: #### C ROMEO DEY MDIFF #### [facility] [address] [place] [address] #### PCAL #### [place] [address] [place], [place] RBC (Bld) [#/Vol] 3.05 10*6/uL Low 3.80-5.20 [facility] Comment on above: Performed By: #### C ROMEO DEY MDIFF #### [facility] [address] [place] [address] #### PCAL #### [facility] [address] [place] [address] WBC (Bld) [#/Vol] 16.5 10*3/uL High 3.6-10.7 [facility] Comment on above: Performed By: #### C ROMEO DEY MDIFF #### [facility] [address] [place] [address] #### PCAL #### [facility] [address] [place] [address] NT pro BNPon 10-04-2021 Natriuretic peptide B (Bld) [Mass/Vol] 6910 pg/mL High 0-125 [facility] Comment on above: Performed By: #### H EMDF, LIPA4, LACTS, CMP3M #### [facility] [address] [place] [address] No Panel Informationon 10-04 [facility] Interpretation and review of laboratory results Abnormal [facility] Work Phone: [facility] Glucoseon 10-04-2021 Glucose [Mass/Vol] 301 mg/dL High 70 - 100 mg/dL [facility] Interpretation and review of laboratory results Abnormal [facility] Glucose [Mass/Vol] 266 mg/dL High 70 - 100 mg/dL [facility] Interpretation and review of laboratory results Abnormal [facility] Glucose [Mass/Vol] 215 mg/dL High 70 - 100 mg/dL [facility] Interpretation and review of laboratory results Abnormal [facility] Glucose [Mass/Vol] 132 mg/dL High 70 - 100 mg/dL [facility] Interpretation and review of laboratory results Abnormal [facility] CREATININE, RANDOM URINEon 1 12-04-2020 Creatinine (U) [Mass/Vol] 100.7 mg/dL No Range [facility] Comp Panel with Mg Reflexon 10-03-2021 ALP [Catalytic activity/Vol] 60 U/L Normal 38-126 [facility] Comment on above: Performed By: #### L ACTS #### [facility] [address] [place] [address] ALT [Catalytic activity/Vol] 14 U/L Normal 0-34 [facility] Comment on above: Result Comment: The ALT test is performed by an updated assay method. Please note that the reference intervals have been changed and are now sex specific. Performed By: #### L ACTS #### [facility] [address] [place] [address] Anion gap [Moles/Vol] 7 mmol/L Normal 3-13 [facility] Comment on above: Performed By: #### L ACTS #### [facility] [address] [place] [address] AST [Catalytic activity/Vol] 18 U/L Normal 15-46 [facility] Comment on above: Performed By: #### L ACTS #### [facility] [address] [place] [address] Bilirubin [Mass/Vol] 0.6 mg/dL Normal 0.2-1.3 [facility] Comment on above: Performed By: #### L ACTS #### [facility] [address] [place] [address] CO2 [Moles/Vol] 23 mmol/L Normal 22-30 [facility] Comment on above: Performed By: #### L ACTS #### [facility] [address] [place] [address] Creatinine [Mass/Vol] 2.51 mg/dL High 0.52-1.25 [facility] Comment on above: Performed By: #### L ACTS #### [facility] [address] [place] [address] GFR/1.73 sq M.predicted among blacks MDRD (S/P/Bld) [Vol rate/Area] 22.6 mL/min/{1.73_m2} Abnormal >60 [facility] Comment on above: Performed By: #### L ACTS #### [facility] [address] [place] [address] GFR/1.73 sq M.predicted among non-blacks MDRD (S/P/Bld) [Vol rate/Area] 19.5 mL/min/{1.73_m2} Abnormal >60 [facility] Comment on above: Result Comment: KDIG O guidelines provide the following GFR categories: Stage GFR(ml/min/1.73 m2) Terms G1 >=90 Normal or high G2 60-89 Mildly decreased* G3a 45-59 Mildly to moderately decreased G3b 30-44 Moderately to severely decreased G4 15-29 Severely decreased G5 <15 Kidney failure *Relative to young adult level. In the absence of evidence of kidney damage, neither GFR category G1 nor G2 fulfill the criteria for CKD. The CKD-EPI equation is validated in individuals 18 years of age and older. Currently the best equation for estimating glomerular filtration rate (GFR) from serum creatinine in children is the Bedside Martinez equation. It is less accurate in patients with extremes of muscle mass, restriction of dietary protein, ingestion of creatine, extra-renal metabolism of creatinine, or treatment with medications that affect renal tubular creatinine secretion. Performed By: #### L ACTS #### [facility] [address] [place] [address] Glucose [Mass/Vol] 200 mg/dL High 70-100 [facility] Comment on above: Performed By: #### L ACTS #### [facility] [address] [place] [address] Protein [Mass/Vol] 5.8 g/dL Low 6.3-8.2 [facility] Comment on above: Performed By: #### L ACTS #### [facility] [address] [place] [address] Urea nitrogen [Mass/Vol] 51 mg/dL High 9-20 [facility] Comment on above: Performed By: #### L ACTS #### [facility] [address] [place] [address] Potassium [Moles/Vol] 4.8 mmol/L Normal 3.5-5.1 [facility] Comment on above: Performed By: #### L ACTS #### [facility] [address] [place] [address] Albumin [Mass/Vol] 3.2 g/dL Low 3.5-5.0 [facility] Comment on above: Performed By: #### L ACTS #### [facility] [address] [place] [address] Chloride [Moles/Vol] 103 mmol/L Normal 98-107 [facility] Comment on above: Performed By: #### L ACTS #### [facility] [address] [place] [address] Sodium [Moles/Vol] 133 mmol/L Low 135-145 [facility] Comment on above: Performed By: #### L ACTS #### [facility] [address] [place] [address] Calcium [Mass/Vol] 7.6 mg/dL Low 8.4-10.4 [facility] Comment on above: Performed By: #### L ACTS #### [facility] [address] [place] [address] Comprehensive Metabolic Pane l w/ Reflex to MGon 10-03-2021 Albumin [Mass/Vol] 3.2 g/dL Low 3.5 - 5.0 g/dL [facility] ALP (Bld) [Catalytic activity/Vol] 60 U/L 38 - 126 U/L [facility] ALT [Catalytic activity/Vol] 14 U/L 0 - 34 U/L [facility] Anion gap [Moles/Vol] 7 mmol/L 3 - 13 mmol/L [facility] AST [Catalytic activity/Vol] 18 U/L 15 - 46 U/L [facility] Bilirubin [Mass/Vol] 0.6 mg/dL 0.2 - 1 .3 mg/dL [facility] Chloride [Moles/Vol] 103 mmol/L 98 - 10 7 mmol/L [facility] CO2 [Moles/Vol] 23 mmol/L 22 - 30 mmol/L [facility] Creatinine [Mass/Vol] 2.51 mg/dL High 0.52 - 1.25 mg/dL [facility] EGFR IF NonAfrican [place] 19.5 mL/min Abnormal >60 [facility] Free PSA/Total PSA [Mass fraction] 5.8 g/dL Low 6.3 - 8.2 g/dL [facility] GFR/1.73 sq M.predicted among blacks MDRD (S/P/Bld) [Vol rate/Area] 22.6 mL/min/{1.73_m2} Abnormal >60 [facility] Glucose [Mass/Vol] 200 mg/dL High 70 - 100 mg/dL [facility] Interpretation and review of laboratory results Abnormal [facility] Potassium [Moles/Vol] 4.8 mmol/L 3.5 - 5.1 mmol/L [facility] Sodium [Moles/Vol] 133 mmol/L Low 135 - 145 mmol/L [facility] Urea nitrogen (BldV) [Mass/Vol] 51 mg/dL High 9 - 20 mg/dL [facility] Creatinine, Ur Randomon -0 Creatinine, Ur Random 100.7 mg/dL Normal No Range [facility] Comment on above: Performed By: #### H EMDF, LIPA4, LACTS, CMP3M #### [facility] [address] [place] [address] ECHO Complete 2D W Doppler W Coloron 10-03-2021 [facility]ARDIOLOG[facility] Work Phone: ECHO Complete 2D W Doppler W ColorOrdered By: Janie Lr on 10-03-2021 [facility] Work Phone: Echo Complete w/wo Contrasto n 10-03-2021 Echo Complete w/wo Contrast Patient Name: KIMBERLY PATEL Ultrasound ACCESSION EXAM DATE/TIME PROCEDURE ORDERING PROVIDER [id number] 10/03/2021 13:34 EST Echo Complete w/wo SETH PAZ, DUYEN Contrast Reason For Exam (Echo Complete w/wo Contrast) shortness of breath, history of HfpEf Report TRANSTHORACIC ECHOCARDIOGRAM PATIENT: Kimberly Patel STUDY DATE: 10/03/2021 : 1955 AGE: 66 HT/WT: 162.6 cm (66 130.2 kg in) (286.4 lb) GENDER: F BP: 98 / 50 LOCATION: [facility] PATIENT Inpatient [facility] STATUS: *ORDERING PHYSICIAN: * Jackson, *FELLOW: * Baldomero Pan *READING PHYSICIAN: * Janie *INFRASTRUCTURE DESIGN ENGINEER: * Be Ribera RDCS, MD, FACC AE, CCT, RCS -- INDICATIONS: SOB, Hx. HFpEF. -- CONCLUSIONS SUMMARY: 1. Left ventricle: The cavity size is normal. Wall thickness is mildly increased. Systolic function is normal by the biplane method of disks. The estimated ejection fraction is 63%. There are no regional wall motion abnormalities. Doppler parameters are consistent with abnormal left ventricular relaxation (grade 1 diastolic dysfunction). 2. Right ventricle: The cavity size is mildly dilated. Systolic function is normal. Right ventricular systolic pressure is within the normal range. 3. Right atrium: The atrium is mildly dilated. 4. Tricuspid valve: There is mild, 1+ regurgitation. 5. Inferior vena cava: The vessel is normal in size. The IVC collapses by greater than 50% with inspiration. 6. Technically difficult study. -- STUDY DATA: Complete transthoracic echocardiogram. Procedure: Image quality was suboptimal. [employer] lot #: [id number]. M-mode, complete 2D, complete spectral Doppler, and color flow Doppler images were acquired and archived for permanent storage and are available for subsequent review. Study status: Routine. Patient status: Inpatient. ECG RHYTHM: NSR Ultrasound Report -- FINDINGS LEFT VENTRICLE: The cavity size is normal. Wall thickness is mildly increased. Systolic function is normal by the biplane method of disks. The estimated ejection fraction is 63%. There are no regional wall motion abnormalities. Doppler parameters are consistent with abnormal left ventricular relaxation (grade 1 diastolic dysfunction). RIGHT VENTRICLE: The cavity size is mildly dilated. Systolic function is normal. Right ventricular systolic pressure is within the normal range. VENTRICULAR SEPTUM: There is no evidence of a ventricular septal defect. LEFT ATRIUM: The atrium is normal in size. RIGHT ATRIUM: The atrium is mildly dilated. ATRIAL SEPTUM: Color Doppler shows no shunt. MITRAL VALVE: Structurally normal valve. Doppler: There is no significant regurgitation. The peak diastolic gradient is 2 mm Hg. AORTIC VALVE: Structurally normal valve. Trileaflet. Doppler: There is no regurgitation. TRICUSPID VALVE: Structurally normal valve. Doppler: There is mild, 1+ regurgitation. PULMONIC VALVE: Structurally normal valve. Doppler: There is trivial, less than 1+ regurgitation. AORTA: The aorta is normal. PULMONARY ARTERY: Main pulmonary artery: Normal. PERICARDIUM: There is no pericardial effusion. SYSTEMIC VEINS: Inferior vena cava: The vessel is normal in size. The IVC collapses by greater than 50% with inspiration. -- Measurements Value Reference Ascending aorta ID, A-P, S 3.0 cm --------- Ascending aorta ID/bsa, A-P, S 1.2 cm/m^2 --------- Left ventricle Value Reference LV ID, ED 4.7 cm 3.8 - 5.2 LV ID, ES 3.0 cm 2.2 - 3.5 LV ID/bsa, ED (L) 1.9 cm/m^2 2.3 - 3.1 LV ID/bsa, ES (L) 1.2 cm/m^2 1.3 - 2.1 LV PW thickness, ED (H) 1.1 cm 0.6 - 0.9 LV PW/LV ID ratio, ED 0.24 --------- LV wall mass (H) 191 g 66 - 150 LV wall mass/bsa 76 g/m^2 44 - 88 Stroke volume/bsa, 1-p A2C 14 ml/m^2 --------- LV end-diastolic volume, 1-p A4C 105 ml 48 - 140 LV end-systolic volume, 1-p A4C 37 ml 12 - 60 LV end-diastolic volume, 2-p 81 ml 46 - 106 LV end-systolic volume, 2-p 30 ml 14 - 42 LV ejection fraction, 2-p 63 % 54 - 74 LV E/e', lateral 11.1 --------- LV E/e', medial 18.3 --------- LV E/e', average 13.8 --------- Ventricular septum Value Reference IVS thickness, ED (H) 1.1 cm 0.6 - 0.9 LVOT Value Reference LVOT ID, A-P 2.0 cm --------- Ultrasound Report LVOT mean velocity, S 0.6 m/sec --------- LVOT peak gradient, S 3 mm Hg --------- Stroke volume (SV), LVOT DP 58 ml --------- Stroke index (SV/bsa), LVOT DP 23 ml/m^2 --------- Left atrium Value Reference LA volume/bsa, ES, 2-p 1 (more content not included)... Normal [facility] Glucose, Bedsideon 1 Confirmation see below Normal [facility] Comment on above: Result Comment: No c onfirmation received. Performed By: #### L ACTS #### [employer] [facility] [address] [place] [address] Glucose,Bedside > 450 High 70-100 [facility] Comment on above: Result Comment: Test performed by glucose meter. Results may be 10%-15% lower than serum/plasma values. (CLIA ID [id number]) Performed By: #### L ACTS #### [facility] [address] [place] [address] Glucose,Bedsideon 10-03-2021 Glucose [Mass/Vol] 161 mg/dL High 70-100 [facility] Comment on above: Result Comment: Test performed by glucose meter. Results may be 10%-15% lower than serum/plasma values. (CLIA ID [id number]) Performed By: #### H EMDF, LIPA4, LACTS, CMP3M #### [facility] [address] [place] [address] Glucose [Mass/Vol] 225 mg/dL High 70-100 [facility] Comment on above: Result Comment: Test performed by glucose meter. Results may be 10%-15% lower than serum/plasma values. (CLIA ID [id number]) Performed By: #### H EMDF, LIPA4, LACTS, CMP3M #### [employer] [facility] [address] [place] [address] Glucose [Mass/Vol] 209 mg/dL High 70-100 [facility] Comment on above: Result Comment: Test performed by glucose meter. Results may be 10%-15% lower than serum/plasma values. (CLIA ID [id number]) Performed By: #### C ROMEO DEY MDIFF #### [facility] [employer] [facility] [address] [place] [address] #### PCAL #### [facility] [employer] [address] [address] Glucose [Mass/Vol] 250 mg/dL High 70-100 [facility] Comment on above: Result Comment: Test performed by glucose meter. Results may be 10%-15% lower than serum/plasma values. (CLIA ID [id number]) Performed By: #### C ROMEO DEY MDIFF #### [facility] [employer] [facility] [address] [place] [facility] [address] #### PCAL #### [facility] [employer] [address] [address] Glucose [Mass/Vol] 221 mg/dL High 70-100 [facility] Comment on above: Result Comment: Test performed by glucose meter. Results may be 10%-15% lower than serum/plasma values. (CLIA ID [id number]) Performed By: #### L ACTS #### [facility] [address] [place] [address] LEGIONELLA AG, URINEon 10-03 LEGIONELLA AG, URINE LEGIONELLA AG, URIN E --> Status: F Legionella antigen NOT DETECTED. Normal [facility] Comment on above: Performed By: #### L ACTS #### [facility] [address] [place] [address] Lactate, Sepsison 10-03-2021 Lactate [Moles/Vol] 0.9 mmol/L 0.7 - 2. 0 mmol/L [facility] Lactic Acid, Sepsison 2020 Lactate [Moles/Vol] 0.9 mmol/L Normal 0.7-2.0 [facility] Comment on above: Performed By: #### L ACTS #### [facility] [address] [place] [address] Legionella Antigen, Urineon 10-03-2021 LEGIONELLA ANTIGEN Not detected [facility] No Panel Informationon 10-03 [facility] POC Glucose, Whole Bloodon 1 12-04-2020 Confirmation see below [facility] Glucose [Mass/Vol] mg/dL High 70 - 100 mg/dL [facility] Interpretation and review of laboratory results Abnormal [facility] POCT Glucoseon 10-03-2021 Glucose [Mass/Vol] 161 mg/dL High 70 - 100 mg/dL [facility] Interpretation and review of laboratory results Abnormal [facility] Glucose [Mass/Vol] 225 mg/dL High 70 - 100 mg/dL [facility] Work Phone: Interpretation and review of laboratory results Abnormal [facility] Work Phone: [facility] Work Phone: Glucose [Mass/Vol] 209 mg/dL High 70 - 100 mg/dL [facility] Work Phone: Interpretation and review of laboratory results Abnormal [facility] Work Phone: [facility] Work Phone: [facility] POCT GlucoseOrdered By: Nohemy Eng on 10-03-2021 Glucose [Mass/Vol] 250 mg/dL High 70 - 100 mg/dL [facility] Work Phone: Interpretation and review of laboratory results Abnormal [facility] Work Phone: [facility] Work Phone: Procalcitoninon 10-03-2021 Procalcitonin 75.82 ng/mL High 0.00-0.09 [facility] Comment on above: Performed By: #### H EMDF, LIPA4, LACTS, CMP3M #### [facility] [address] [place] [address] SODIUM, URINE, RANDOMon Interpretation and review of laboratory results Abnormal [facility] Sodium (U) [Moles/Vol] 9 mmol/L Low 30 - 90 mmol/L [facility] STREP PNEUMO ANTIGEN, URINEo n 10-03-2021 STREP PNEUMO ANTIGEN, URINE STREP PNEUMO ANTIGEN, URINE --> Status: F Strep pneumo antigen NOT DETECTED. Normal [facility] Comment on above: Performed By: #### L ACTS #### [facility] [address] [place] [address] STREP PNEUMONIAE ANTIGENon 1 12-04-2020 STREP PNEUMONIAE ANTIGEN, URINE Not detected [facility] Sodium, Ur Randomon 10-03-20 21 Sodium [Moles/Vol] 9 mmol/L Low 30-90 [facility] Comment on above: Performed By: #### H EMDF, LIPA4, LACTS, CMP3M #### [facility] [address] [place] [address] US RETROPERITONEAL COMPLETEo n 10-03-2021 MARLY [facility] RAD [facility] Work Phone: Radiology Study observation (narrative) [facility] Work Phone: US RETROPERITONEAL COMPLETEO rdered By: Citlalli Warren on 10-03-2021 [facility] Work Phone: US Retroperitoneal Completeo n 10-03-2021 US Retroperitoneal Complete Patient Name: KIMBERLY PATEL Ultrasound ACCESSION EXAM DATE/TIME PROCEDURE ORDERING PROVIDER [id number] 10/03/2021 14:38 EST US Retroperitoneal JACKSON, HEAD REFRIGERATING ENGINEER, DUYEN Complete CPT code 74147 Reason For Exam (US Retroperitoneal Complete) DARRELL on CKD Report Renal ultrasound: 10/03/2021. CLINICAL INFORMATION: Acute on chronic. FINDINGS: Sonographic examination of the kidneys was performed. No prior studies for comparison. The echogenicity kidney cortices is within normal limits. There is no evidence of hydronephrosis on either side. Both kidneys are within normal limits in size. The right kidney measures approximately 10.9 x 5.7 x 5.7 cm. The left kidney measures approximately 12.4 x 6.7 x 5.0 cm. No contour abnormalities are identified on either side. Cursory examination the urinary bladder reveals the bladder to be collapsed around a Martinez catheter. IMPRESSION: No acute process. Report Dictated on Final Dictating Physician: MD WARREN RISA Signed Date and Time: 10/03/2021 2:44 pm Signed by: MD WARREN RISA Transcribed Date and Time: 10/03/2021 2:45 Normal [facility] Arterial Blood Gas Respirato jace 10-02-2021 Base Excess -1.0 mmol/L Normal -3.0-3.0 [facility] Comment on above: Performed By: #### L ACTS #### [facility] [address] [place] [address] CO2 [Moles/Vol] 24.8 mmol/L Normal 23.0-27.0 [facility] Comment on above: Performed By: #### L ACTS #### [facility] [address] [place] [address] FIO2 4 Normal [facility] Comment on above: Result Comment: Perf ormed by CLIA ID: [id number] [place], [place] Performed By: #### L ACTS #### [facility] [address] [place] [address] HCO3 (Bld) [Moles/Vol] 23.6 mmol/L Normal 21.0-25.0 [facility] Comment on above: Performed By: #### L ACTS #### [facility] [address] [place] [address] Oxygen (Bld) [Partial pressure] 86.9 mm[Hg] Normal 80.0-100.0 [facility] [employer] [facility] Comment on above: Performed By: #### L ACTS #### [employer] [address] [place] [address] Oxygen saturation in Blood 96.7 % Normal 95.0-100.0 [facility] [employer] Comment on above: Performed By: #### L ACTS #### [employer] [facility] [address] [place] [address] pCO2 38.1 mm[Hg] Normal 35.0-45.0 [facility] [employer] Comment on above: Performed By: #### L ACTS #### [employer] [address] [place] [address] pH 7.400 Normal 7.350-7.450 [facility] [employer] Comment on above: Performed By: #### L ACTS #### [employer] [address] [place] [address] CBC auto differentialon 12-0 Absolute Baso # 0.0 10*3/uL 0.0 - 0.2 10*3/uL [employer] Work Phone: [phone] Absolute Neut # 13.7 10*3/uL High 1.8 - 7.0 10*3/uL [employer] Work Phone: [phone]) [phone] Basophils/100 WBC (Bld) 0.1 % 0.0 - 2.0 % [employer] Work Phone: [phone]) [phone] Eosinophils (Bld) [#/Vol] 0.0 10*3/uL 0.0 - 0.5 10*3/uL [employer] Work Phone: [phone]) 22 Eosinophils/100 WBC (Bld) 0.2 % Low 1.0 - 6.0 % [employer] Work Phone: 1) 22 Granulocytes/100 WBC (Bld) 96.7 % High 40.0 - 80.0 % [employer] Work Phone: [phone] 22 Hematocrit (Bld) [Volume fraction] 31.7 % Low 35.0 - 47.0 % [employer] Work Phone: [phone] 22 Hemoglobin.gastrointest inal spec 1 Ql (Stl) 10.3 g/dL Low 11.7 - 16.0 g/dL [employer] Work Phone: [phone] Interpretation and review of laboratory results Abnormal [employer] Work Phone: Lymphocytes (Bld) [#/Vol] 0.2 10*3/uL Low 1.0 - 4.3 10*3/uL [employer] Work Phone: Lymphocytes/100 WBC (Bld) 1.6 % Low 20.0 - 40.0 % [employer] Work Phone: 1 MCH (RBC) [Entitic mass] 26.9 pg 26.0 - 34.0 pg [employer] Work Phone: MCHC (RBC) [Mass/Vol] 32.4 % 32.0 - 36.0 % [employer] Work Phone: MCV (RBC) [Entitic vol] 82.8 fL 79.0 - 98.0 fL [employer] Work Phone: Monocytes (Bld) [#/Vol] 0.2 10*3/uL 0.0 - 0.8 10*3/uL [employer] Work Phone: 22 Monocytes/100 WBC (Bld) 1.4 % Low 2.0 - 10.0 % [employer] Work Phone: Platelet distribution width (Bld) [Ratio] 16.6 % High 11.5 - 14.5 % [employer] Work Phone: Platelet mean volume (Bld) [Entitic vol] 6.7 fL Low 7.4 - 10.4 fL [employer] Work Phone: Platelets (Bld) [#/Vol] 228 10*3/uL 140 - 440 10*3/uL [employer] Work Phone: RBC (Bld) [#/Vol] 3.83 10*6/uL 3.80 - 5.2 0 10*6/uL [employer] Work Phone: 22 WBC (Bld) [#/Vol] 14.2 10*3/uL High 3.6 - 10.7 10*3/uL [employer] Work Phone: [phone] [facility] Work Phone: [phone] COVID-19, Flu A/B, and RSV C omboon 10-02-2021 Influenza A by PCR Not detected [facility] Work Phone: [phone] Influenza B by PCR Not detected [facility] Work Phone: [phone] RSV PCR [facility] Work Phone: [phone] SARS-CoV-2 (COVID-19) RNA IGGY+probe Ql (Unsp spec) Not detected [facility] Work Phone: [phone] [facility] Work Phone: [phone] CR Chest Portableon 10-02-20 CR Chest Portable Patient Name: KIMBERLY PATEL Diagnostic Radiology ACCESSION EXAM DATE/TIME PROCEDURE ORDERING PROVIDER [id number] 10/02/2021 00:32 EST CR Chest Portable QUIQUE ROBERTS CPT code 30889 Reason For Exam (CR Chest Portable) sepsis Report CLINICAL INDICATION: sepsis COMPARISON: None TECHNIQUE: Single portable AP radiograph of the chest. FINDINGS: LUNGS/PLEURA:Clear with no acute infiltrate or effusion. No pneumothorax. The trachea is midline. MEDIASTINUM:Heart size and mediastinal contours are normal. VASCULARITY: Normal BONES:Unremarkable IMPRESSION: Lungs clear with no acute infiltrate or effusion. Report Dictated on Final Dictating Physician: MD MORROW YUN ROBERT Signed Date and Time: 10/02/2021 0:37 am Signed by: MD MORROW YUN ROBERT Transcribed Date and Time: 10/02/2021 0:39 Normal [facility] CT Abdomen Pelvis Wo Contras ton 10-02-2021 [facility] Work Phone: [phone] [facility] Work Phone: [phone] Radiology Study observation (narrative) [facility] Work Phone: [phone] CT Abdomen/Pelvis w/o Contra ston 10-02-2021 CT Abdomen/Pelvis w/o Contrast Patient Name: KIMBERLY PATEL Computed Tomography ACCESSION EXAM DATE/TIME PROCEDURE ORDERING PROVIDER [id number] 10/02/2021 02:[address] Abdomen/Pelvis (No 5816 QUIQUE GUPTA PO, No IV) CPT code 99345 Reason For Exam (CT Abdomen/Pelvis (No PO, No IV)) Abdominal pain distention, ascites, renal failure Report CLINICAL HISTORY: Abdominal pain distention, ascites, renal failure COMPARISON: None Technique: [address] images were obtained of the abdomen and pelvis without the use of intravenous contrast. Images were reformatted in coronal and sagittal projections. FINDINGS: Lung bases: The lung bases are clear. Major organs: A round calcification is present within the lateral right lobe of the liver. This is benign in appearance. The liver is otherwise normal. The patient is status post a cholecystectomy. The spleen, pancreas, and adrenal glands are normal. There is bilateral nonspecific perinephric fat stranding. The kidneys are otherwise normal. Bowel: The bowel is of normal caliber throughout without evidence of wall thickening or obstruction. The appendix is normal Lymph nodes and Mesentery: No enlarged intra-abdominal lymph nodes or free fluid. Mesentery is normal with no free air. Vasculature: The abdominal aorta is normal in caliber without evidence of aneurysmal dilatation. Mild scattered atherosclerotic calcifications. Soft tissues and Osseous structures: Multilevel degenerative changes of the lumbar spine. No suspicious osseous lesion. Pelvis: Major organs: The rectum, sigmoid colon, and uterus are normal. A Martinez catheter decompresses the bladder. Lymph nodes: No enlarged intrapelvic lymph nodes or free fluid. Computed Tomography Report Soft tissues and Osseous structures: No acute fracture. No suspicious osseous lesions. IMPRESSION: ABDOMEN: No acute intra-abdominal disease process. Normal appendix PELVIS: No acute intrapelvic disease process. Report Dictated on Final Dictating Physician: MD MORROW YUN ROBERT Signed Date and Time: 10/02/2021 2:58 am Signed by: MD MORROW YUN ROBERT Transcribed Date and Time: 10/02/2021 2:59 Normal [facility] CT Head WO Contraston 2020 [facility] Work Phone: [facility] Work Phone: Radiology Study observation (narrative) [facility] Work Phone: CT Head or Brain w/o Contras ton 10-02-2021 CT Head or Brain w/o Contrast [facility]: [id number] Computed Tomography ACCESSION EXAM DATE/TIME PROCEDURE ORDERING PROVIDER [id number] 10/02/2021 02:[address] Head or Brain w/o QUIQUE ROBERTS Contrast CPT code 30494 Reason For Exam (CT Head or Brain w/o Contrast) change in mental status Report CLINICAL INDICATION: change in mental status COMPARISON: None Technique: Unenhanced [address] images were obtained from skull base to vertex. Images were reformatted in coronal and sagittal projections. Findings: Ventricles: Appropriate in size for the patient's age. Brain Parenchyma There is no CT evidence of an acute intracranial hemorrhage, territorial infarction, midline shift, mass effect, or extra-axial collection. The carver-white differentiation remains preserved and the basal cisterns are patent. Bones: The osseous structures are unremarkable without evidence of a fracture. The paranasal sinuses and mastoid air cells remain well aerated. IMPRESSION: No acute intracranial abnormality. Report Dictated on Final Dictating Physician: MD YANETH, ELLY DELGADO Signed Date and Time: 10/02/2021 2:51 am Signed by: MD MORROW YUN ROBERT Transcribed Date and Time: 10/02/2021 2:53 Normal [facility] Comp Metabolic Panelon 10-02 Calcium [Mass/Vol] 7.9 mg/dL Low 8.4-10.4 [facility] Comment on above: Performed By: #### H EMDF, LIPA4, LACTS, CMP3M #### [facility] [address] [place] [address] ALP [Catalytic activity/Vol] 93 U/L Normal 38-126 [facility] Comment on above: Performed By: #### H EMDF, LIPA4, LACTS, CMP3M #### [facility] [address] [place] [address] ALT [Catalytic activity/Vol] 18 U/L Normal 0-34 [facility] Comment on above: Result Comment: The ALT test is performed by an updated assay method. Please note that the reference intervals have been changed and are now sex specific. Performed By: #### H EMDF, LIPA4, LACTS, CMP3M #### [facility] [address] [place] [address] Anion gap [Moles/Vol] 6 mmol/L Normal 3-13 [facility] Comment on above: Performed By: #### H EMDF, LIPA4, LACTS, CMP3M #### [facility] [address] [place] [address] AST [Catalytic activity/Vol] 45 U/L Normal 15-46 [facility] Comment on above: Performed By: #### H EMDF, LIPA4, LACTS, CMP3M #### [facility] [address] [place] [address] Bilirubin [Mass/Vol] 0.5 mg/dL Normal 0.2-1.3 [facility] Comment on above: Performed By: #### H EMDF, LIPA4, LACTS, CMP3M #### [facility] [address] [place] [address] CO2 [Moles/Vol] 22 mmol/L Normal 22-30 [facility] Comment on above: Performed By: #### H EMDF, LIPA4, LACTS, CMP3M #### [facility] [address] [place] [address] Creatinine [Mass/Vol] 2.28 mg/dL High 0.52-1.25 [facility] Comment on above: Performed By: #### H EMDF, LIPA4, LACTS, CMP3M #### [facility] [address] [place] [address] GFR/1.73 sq M.predicted among blacks MDRD (S/P/Bld) [Vol rate/Area] 25.4 mL/min/{1.73_m2} Abnormal >60 [facility] Comment on above: Performed By: #### H EMDF, LIPA4, LACTS, CMP3M #### [facility] [address] [place] [address] GFR/1.73 sq M.predicted among non-blacks MDRD (S/P/Bld) [Vol rate/Area] 21.9 mL/min/{1.73_m2} Abnormal >60 [facility] Comment on above: Result Comment: KDIG O guidelines provide the following GFR categories: Stage GFR(ml/min/1.73 m2) Terms G1 >=90 Normal or high G2 60-89 Mildly decreased* G3a 45-59 Mildly to moderately decreased G3b 30-44 Moderately to severely decreased G4 15-29 Severely decreased G5 <15 Kidney failure *Relative to young adult level. In the absence of evidence of kidney damage, neither GFR category G1 nor G2 fulfill the criteria for CKD. The CKD-EPI equation is validated in individuals 18 years of age and older. Currently the best equation for estimating glomerular filtration rate (GFR) from serum creatinine in children is the Bedside Martinez equation. It is less accurate in patients with extremes of muscle mass, restriction of dietary protein, ingestion of creatine, extra-renal metabolism of creatinine, or treatment with medications that affect renal tubular creatinine secretion. Performed By: #### H EMDF, LIPA4, LACTS, CMP3M #### [facility] [address] [place] [address] Glucose [Mass/Vol] 476 mg/dL Critically high 70-100 [facility] Comment on above: Performed By: #### H EMDF, LIPA4, LACTS, CMP3M #### [facility] [address] [place] [address] Protein [Mass/Vol] 6.1 g/dL Low 6.3-8.2 [facility] Comment on above: Performed By: #### H EMDF, LIPA4, LACTS, CMP3M #### [facility] [address] [place] [address] Urea nitrogen [Mass/Vol] 46 mg/dL High 9-20 [facility] Comment on above: Performed By: #### H EMDF, LIPA4, LACTS, CMP3M #### [facility] [address] [place] [address] Albumin [Mass/Vol] 3.2 g/dL Low 3.5-5.0 [facility] Comment on above: Performed By: #### H EMDF, LIPA4, LACTS, CMP3M #### [facility] [address] [place] [address] Chloride [Moles/Vol] 103 mmol/L Normal 98-107 [facility] Comment on above: Performed By: #### H EMDF, LIPA4, LACTS, CMP3M #### [facility] [address] [place] [address] Potassium [Moles/Vol] 5.4 mmol/L High 3.5-5.1 [facility] Comment on above: Performed By: #### H EMDF, LIPA4, LACTS, CMP3M #### [facility] [address] [place] [address] Sodium [Moles/Vol] 131 mmol/L Low 135-145 [facility] Comment on above: Performed By: #### H EMDF, LIPA4, LACTS, CMP3M #### [facility] [address] [place] [address] Comp Panel with Mg Reflexon 10-02-2021 Calcium [Mass/Vol] 8.5 mg/dL Normal 8.4-10.4 [facility] Comment on above: Performed By: #### H EMDF, LIPA4, LACTS, CMP3M #### [facility] [address] [place] [address] ALP [Catalytic activity/Vol] 140 U/L High 38-126 [facility] Comment on above: Performed By: #### H EMDF, LIPA4, LACTS, CMP3M #### [facility] [address] [place] [address] ALT [Catalytic activity/Vol] 19 U/L Normal 0-34 [facility] Comment on above: Result Comment: The ALT test is performed by an updated assay method. Please note that the reference intervals have been changed and are now sex specific. Performed By: #### H EMDF, LIPA4, LACTS, CMP3M #### [facility] [address] [place] [address] Anion gap [Moles/Vol] 7 mmol/L Normal 3-13 [facility] Comment on above: Performed By: #### H EMDF, LIPA4, LACTS, CMP3M #### [facility] [address] [place] [address] AST [Catalytic activity/Vol] 33 U/L Normal 15-46 [facility] Comment on above: Performed By: #### H EMDF, LIPA4, LACTS, CMP3M #### [facility] [address] [place] [address] CO2 [Moles/Vol] 25 mmol/L Normal 22-30 [facility] Comment on above: Performed By: #### H EMDF, LIPA4, LACTS, CMP3M #### [facility] [address] [place] [address] Glucose [Mass/Vol] 394 mg/dL High 70-100 [facility] Comment on above: Performed By: #### H EMDF, LIPA4, LACTS, CMP3M #### [facility] [address] [place] [address] Protein [Mass/Vol] 6.8 g/dL Normal 6.3-8.2 [facility] Comment on above: Performed By: #### H EMDF, LIPA4, LACTS, CMP3M #### [facility] [address] [place] [address] Urea nitrogen [Mass/Vol] 47 mg/dL High 9-20 [facility] Comment on above: Performed By: #### H EMDF, LIPA4, LACTS, CMP3M #### [facility] [address] [place] [address] Bilirubin [Mass/Vol] 0.5 mg/dL Normal 0.2-1.3 [facility] Comment on above: Performed By: #### H EMDF, LIPA4, LACTS, CMP3M #### [facility] [address] [place] [address] Creatinine [Mass/Vol] 2.31 mg/dL High 0.52-1.25 [facility] Comment on above: Performed By: #### H EMDF, LIPA4, LACTS, CMP3M #### [facility] [address] [place] [address] GFR/1.73 sq M.predicted among blacks MDRD (S/P/Bld) [Vol rate/Area] 25.0 mL/min/{1.73_m2} Abnormal >60 [facility] Comment on above: Performed By: #### H EMDF, LIPA4, LACTS, CMP3M #### [facility] [address] [place] [address] GFR/1.73 sq M.predicted among non-blacks MDRD (S/P/Bld) [Vol rate/Area] 21.6 mL/min/{1.73_m2} Abnormal >60 [facility] Comment on above: Result Comment: KDIG O guidelines provide the following GFR categories: Stage GFR(ml/min/1.73 m2) Terms G1 >=90 Normal or high G2 60-89 Mildly decreased* G3a 45-59 Mildly to moderately decreased G3b 30-44 Moderately to severely decreased G4 15-29 Severely decreased G5 <15 Kidney failure *Relative to young adult level. In the absence of evidence of kidney damage, neither GFR category G1 nor G2 fulfill the criteria for CKD. The CKD-EPI equation is validated in individuals 18 years of age and older. Currently the best equation for estimating glomerular filtration rate (GFR) from serum creatinine in children is the Bedside Martinez equation. It is less accurate in patients with extremes of muscle mass, restriction of dietary protein, ingestion of creatine, extra-renal metabolism of creatinine, or treatment with medications that affect renal tubular creatinine secretion. Performed By: #### H EMDF, LIPA4, LACTS, CMP3M #### [facility] [address] [place] [address] Albumin [Mass/Vol] 3.5 g/dL Normal 3.5-5.0 [facility] Comment on above: Performed By: #### H EMDF, LIPA4, LACTS, CMP3M #### [facility] [address] [place] [address] Chloride [Moles/Vol] 103 mmol/L Normal 98-107 [facility] Comment on above: Performed By: #### H EMDF, LIPA4, LACTS, CMP3M #### [facility] [address] [place] [address] Potassium [Moles/Vol] 4.7 mmol/L Normal 3.5-5.1 [facility] Comment on above: Performed By: #### H EMDF, LIPA4, LACTS, CMP3M #### [facility] [address] [place] [address] Sodium [Moles/Vol] 135 mmol/L Normal 135-145 [facility] Comment on above: Performed By: #### H EMDF, LIPA4, LACTS, CMP3M #### [facility] [address] [place] [address] Complete Urinalysison 2020 Appearance (U) Clear Normal Clear [facility] Comment on above: Result Comment: . Performed By: #### L ACTS #### [facility] [address] [place] [address] Bacteria Few Abnormal Negative [facility] Comment on above: Result Comment: . Performed By: #### L ACTS #### [facility] [address] [place] [address] Bilirubin,Urine Negative Normal Negative [facility] Comment on above: Result Comment: . Performed By: #### L ACTS #### [facility] [address] [place] [address] Color (U) Light-Yellow Normal Lt. Yellow [facility] Comment on above: Result Comment: . Performed By: #### L ACTS #### [facility] [address] [place] [address] Glucose Ql (U) 1,000 mg/dL Abnormal Normal (<70) [facility] Comment on above: Result Comment: . Performed By: #### L ACTS #### [facility] [address] [place] [address] Ketone,Urine Negative Normal Negative [facility] Comment on above: Result Comment: . Performed By: #### L ACTS #### [facility] [address] [place] [address] Leukocytes,Urine 75 Ha/uL Abnormal Negative [facility] Comment on above: Result Comment: . Performed By: #### L ACTS #### [facility] [address] [place] [address] Mucous Threads Few Normal Negative [facility] Comment on above: Result Comment: . Performed By: #### L ACTS #### [facility] [address] [place] [address] Nitrites,Urine Negative Normal Negative [facility] Comment on above: Result Comment: . Performed By: #### L ACTS #### [facility] [address] [place] [address] Occult Blood,Urine Negative Normal Negative [facility] Comment on above: Result Comment: . Performed By: #### L ACTS #### [facility] [address] [place] [address] pH,Urine 5.5 Normal 5.0-8.0 [facility] Comment on above: Result Comment: . Performed By: #### L ACTS #### [facility] [address] [place] [address] Protein (U) [Mass/Vol] 20 mg/dL Abnormal Negative [facility] Comment on above: Result Comment: . Performed By: #### L ACTS #### [facility] [address] [place] [address] RBC, Urine 0 - 2 Normal 0-2 [facility] Comment on above: Result Comment: . Performed By: #### L ACTS #### [facility] [address] [place] [address] Specific [place],Urine 1.010 Normal 1.005 - 1.030 [facility] Comment on above: Result Comment: . Performed By: #### L ACTS #### [facility] [address] [place] [address] Squamous Epithelial 3 - 5 Normal 3-5 [facility] Comment on above: Result Comment: . Performed By: #### L ACTS #### [facility] [address] [place] [address] Urobilinogen,Urine Normal Normal Normal (0-1) [facility] Comment on above: Result Comment: . Performed By: #### L ACTS #### [facility] [address] [place] [address] WBC, Urine 11 - 25 Abnormal 0-5 [facility] Comment on above: Result Comment: . Performed By: #### L ACTS #### [facility] [address] [place] [address] Comprehensive Metabolic Pane wade 10-02-2021 Albumin [Mass/Vol] 3.2 g/dL Low 3.5 - 5.0 g/dL [facility] ALP (Bld) [Catalytic activity/Vol] 93 U/L 38 - 126 U/L [facility] ALT [Catalytic activity/Vol] 18 U/L 0 - 34 U/L [facility] Anion gap [Moles/Vol] 6 mmol/L 3 - 13 mmol/L [facility] AST [Catalytic activity/Vol] 45 U/L 15 - 46 U/L [facility] Bilirubin [Mass/Vol] 0.5 mg/dL 0.2 - 1 .3 mg/dL [facility] Calcium [Mass/Vol] 7.9 mg/dL Low 8.4 - 10. 4 mg/dL [facility] Chloride [Moles/Vol] 103 mmol/L 98 - 10 7 mmol/L [facility] CO2 [Moles/Vol] 22 mmol/L 22 - 30 mmol/L [facility] Creatinine [Mass/Vol] 2.28 mg/dL High 0.52 - 1.25 mg/dL [facility] EGFR IF NonAfrican [place] 21.9 mL/min Abnormal >60 [facility] Free PSA/Total PSA [Mass fraction] 6.1 g/dL Low 6.3 - 8.2 g/dL [facility] GFR/1.73 sq M.predicted among blacks MDRD (S/P/Bld) [Vol rate/Area] 25.4 mL/min/{1.73_m2} Abnormal >60 [facility] Glucose [Mass/Vol] 476 mg/dL Critically high 70 - 1 00 mg/dL [facility] Interpretation and review of laboratory results Abnormal [facility] Potassium [Moles/Vol] 5.4 mmol/L High 3.5 - 5.1 mmol/L [facility] Sodium [Moles/Vol] 131 mmol/L Low 135 - 145 mmol/L [facility] Urea nitrogen (BldV) [Mass/Vol] 46 mg/dL High 9 - 20 mg/dL [facility] Comprehensive Metabolic Pane l w/ Reflex to MGon 10-02-2021 Albumin [Mass/Vol] 3.5 g/dL 3.5 - 5.0 g/dL [facility] Work Phone: ALP (Bld) [Catalytic activity/Vol] 140 U/L High 38 - 126 U/L [facility] Work Phone: [phone] ALT [Catalytic activity/Vol] 19 U/L 0 - 34 U/L [facility] Work Phone: [phone] Anion gap [Moles/Vol] 7 mmol/L 3 - 13 mmol/L [facility] Work Phone: [phone] AST [Catalytic activity/Vol] 33 U/L 15 - 46 U/L [facility] Work Phone: [phone] Bilirubin [Mass/Vol] 0.5 mg/dL 0.2 - 1 .3 mg/dL [facility] Work Phone: [phone] Calcium [Mass/Vol] 8.5 mg/dL 8.4 - 10. 4 mg/dL [facility] Work Phone: [phone] Chloride [Moles/Vol] 103 mmol/L 98 - 10 7 mmol/L [facility] Work Phone: [phone] CO2 [Moles/Vol] 25 mmol/L 22 - 30 mmol/L [facility] Work Phone: [phone] Creatinine [Mass/Vol] 2.31 mg/dL High 0.52 - 1.25 mg/dL [facility] Work Phone: [phone] EGFR IF NonAfrican [place] 21.6 mL/min Abnormal >60 [facility] Work Phone: [phone] Free PSA/Total PSA [Mass fraction] 6.8 g/dL 6.3 - 8.2 g/dL [facility] Work Phone: [phone] GFR/1.73 sq M.predicted among blacks MDRD (S/P/Bld) [Vol rate/Area] 25.0 mL/min/{1.73_m2} Abnormal >60 [facility] Work Phone: [phone] Glucose [Mass/Vol] 394 mg/dL High 70 - 100 mg/dL [facility] Work Phone: [phone] Interpretation and review of laboratory results Abnormal [facility] Work Phone: [phone] Potassium [Moles/Vol] 4.7 mmol/L 3.5 - 5.1 mmol/L [facility] Work Phone: [phone] Sodium [Moles/Vol] 135 mmol/L 135 - 145 mmol/L [facility] Work Phone: Urea nitrogen (BldV) [Mass/Vol] 47 mg/dL High 9 - 20 mg/dL [facility] Work Phone: ED Provider Noteon 1 ED Provider Note [facility]PART[facility] ENCOUNTER Pt Name: Kimberly Patel Birthdate 1955 Date of evaluation: 10/01/2021 Provider: Quique Aranda MD CHIEF COMPLAINT Chief Complaint Patient presents with ? Altered Mental Status HISTORY OF PRESENT ILLNESS (Location/Symptom, Timing/Onset,Context/Se tting, Quality, Duration, Modifying Factors, Severity) Note limiting factors. HPI Kimberly Patel is a 66 y.o. female who presents to the emergency department for the evaluation of pulmonary status. Coming from home. Patient is found after being called by family. She was on the couch covered in feces and urine. She was seen recently for possible urinary tract infection. She was not found to have an infection at that time. Arrives with fever and tachycardia. Patient does not know why she is here. She is complaining of abdominal pain. Nursing Notes were reviewed. REVIEW OF SYSTEMS (2+ for level 4; 10+ for level 5) Review of Systems 10 system review of systems negative except as perhistory of present illness. PAST MEDICAL HISTORY No past medical history on file. SURGICAL HISTORY No past surgical history on file. CURRENT MEDICATIONS Previous Medications No medications on file ALLERGIES Patient has no known allergies. FAMILY HISTORY No family history on file. SOCIALHISTORY Social History Socioeconomic History ? Marital status: Spouse name: Not on file ? Number of children: Not on file ? Years of education: Not on file ? Highest education level: Not on file Occupational History ? Not on file Tobacco Use ? Smoking status: Not on file ? Smokeless tobacco: Not on file Substance and Sexual Activity ? Alcohol use: Not on file ? Drug use: Not on file ? Sexual activity: Not on file Other Topics Concern ? Not on file Social History Narrative ? Not on file Social Determinants of Health Financial Resource Strain: ? Difficulty of Paying Living Expenses: Not on file Food Insecurity: ? Worried About Running Out of Food in the Last Year: Not on file ? Ran Out of Food in the Last Year: Not on file Transportation Needs: ? Lack of Transportation (Medical): Not on file ? Lack of Transportation (Non-Medical): Not on file Physical Activity: ? Days of Exercise per Week: Not on file ? Minutes of Exercise per Session: Not on file Stress: ? Feeling of Stress : Not on file Social Connections: ? Frequency of Communication with Friends and Family: Not on file ? Frequency of Social Gatherings with Friends and Family: Not on file ? Attends Uatsdin Services: Not on file ? Active Member of Clubs or Organizations: Not on file ? Attends Club or Organization Meetings: Not on file ? Marital Status: Not on file Intimate Partner Violence: ? Fear of Current or Ex-Partner: Not on file ? Emotionally Abused: Not on file ? Physically Abused: Not on file ? Sexually Abused: Not on file Housing Stability: ? Unable to Pay for Housing in the Last Year: Not on file ? Number of Places Lived in the Last Year: Not on file ? Unstable Housing in the Last Year: Not on file SCREENINGS PHYSICAL EXAM (up to 7 for level 4, 8 or more for level 5) ED Triage Vitals BP Temp Temp Source Pulse Resp SpO2 Height Weight 10/01/21 2350 10/01/21 2350 10/01/21 2350 10/01/21 2350 10/01/21 2350 10/01/21 2350 10/01/21 2358 10/01/21 2350 (!) 143/74 100.4 ?F (38 ?C) Oral 125 18 98 % 5' 4 (1.626 m) 300 lb (136.1 kg) Physical Exam General Appearance: lethargic, cooperative, toxic appearing, appears older than stated age. Head: Normocephalic, without obvious abnormality, atraumatic. Eyes: conjunctiva/corneas clear, EOM's intact. Sclera anicteric. ENT: Mucous membranes tacky. Neck: Supple, symmetrical, trachea midline, No jugular venous distention. Lungs: No Respiratory Distress. Chest Wall: Nontender Heart: tachycardia Abdomen: Soft, distended, Extremities: Full range of motion. Pulses: Equal bilaterally in bilateral upper extremities Skin: No rashes or lesions to exposed skin. Neurologic: Alert and oriented X 1 to name only. She knows she is in a hospital. ERVIN, no facial droop. DIAGNOSTIC RESULTS EKG (Per Emergency Physician): Sinus tach. Hr 120. qtc 436. RADIOLOGY (Per EmergencyPhysician): Interpretation per the Radiologist below, if available at the time of this note: CT Head WO Contrast Result Date: 10/02/2021 Patient Name: KIMBERLY PATEL [facility]#: [id number] Computed Tomography ACCESSION EXAM DATE/TIME PROCEDURE ORDERING PROVIDER [id number] 10/02/2021 02:[address] Head or Brain w/o 58QUIQUE HAYDEN Contrast CPT code 77020 Reason For Exam (CT Head or Brain w/o Contrast) change in mental status Report CLINICAL INDICATION: change in mental status COMPARISON: None Technique: Unenhanced [address] images were obtained from skull base to vertex. Images were reformatted in coronal and sagittal projections. Findings (more content not included)... Normal [facility] EKG 12 leadon 10-02-2021 [facility]ARDI[facility] Work Phone: EKG 12 leadOrdered By: Suaznna Canela on 10-02-2021 [facility] Work Phone: Glucose,Bedsideon 10-02-2021 Glucose [Mass/Vol] 314 mg/dL High 70-100 [facility] Comment on above: Result Comment: Test performed by glucose meter. Results may be 10%-15% lower than serum/plasma values. (CLIA ID [id number]) Performed By: #### H EMDF, LIPA4, LACTS, CMP3M #### [facility] [address] [place] [address] Hemogram w/ Autodiffon 10-02 Abs Baso Cnt 0.0 10*3/uL Normal 0.0-0.2 [facility] Comment on above: Performed By: #### H EMDF, LIPA4, LACTS, CMP3M #### [facility] [address] [place] [address] Abs Neutrophile Cnt 13.7 10*3/uL High 1.8-7.0 [facility] Comment on above: Performed By: #### H EMDF, LIPA4, LACTS, CMP3M #### [facility] [address] [place] [address] Basophils/100 WBC (Bld) 0.1 % Normal 0.0-2.0 [facility] Comment on above: Performed By: #### H EMDF, LIPA4, LACTS, CMP3M #### [facility] [address] [place] [address] Eosinophils (Bld) [#/Vol] 0.0 10*3/uL Normal 0.0-0.5 [facility] Comment on above: Performed By: #### H EMDF, LIPA4, LACTS, CMP3M #### [facility] [address] [place] [address] Eosinophils/100 WBC (Bld) 0.2 % Low 1.0-6.0 [facility] Comment on above: Performed By: #### H EMDF, LIPA4, LACTS, CMP3M #### [facility] [address] [place] [address] Erythrocyte distribution width (RBC) [Ratio] 16.6 % High 11.5-14.5 [facility] Comment on above: Performed By: #### H EMDF, LIPA4, LACTS, CMP3M #### [facility] [address] [place] [address] Granulocytes/100 WBC (Bld) 96.7 % High 40.0-80.0 [facility] Comment on above: Performed By: #### H EMDF, LIPA4, LACTS, CMP3M #### [facility] [address] [place] [address] Hematocrit (Bld) [Volume fraction] 31.7 % Low 35.0-47.0 [facility] Comment on above: Performed By: #### H EMDF, LIPA4, LACTS, CMP3M #### [facility] [address] [place] [address] Hemoglobin (Bld) [Mass/Vol] 10.3 g/dL Low 11.7-16.0 [facility] Comment on above: Performed By: #### H EMDF, LIPA4, LACTS, CMP3M #### [facility] [address] [place] [address] Lymphocytes (Bld) [#/Vol] 0.2 10*3/uL Low 1.0-4.3 [facility] Comment on above: Performed By: #### H EMDF, LIPA4, LACTS, CMP3M #### [facility] [address] [place] [address] Lymphocytes/100 WBC (Bld) 1.6 % Low 20.0-40.0 [facility] Comment on above: Performed By: #### H EMDF, LIPA4, LACTS, CMP3M #### [facility] [address] [place] [address] MCH (RBC) [Entitic mass] 26.9 pg Normal 26.0-34.0 [facility] Comment on above: Performed By: #### H EMDF, LIPA4, LACTS, CMP3M #### [facility] [address] [place] [address] MCHC 32.4 % Normal 32.0-36.0 [facility] Comment on above: Performed By: #### H EMDF, LIPA4, LACTS, CMP3M #### [facility] [address] [place] [address] MCV (RBC) [Entitic vol] 82.8 fL Normal 79.0-98.0 [facility] Comment on above: Performed By: #### H EMDF, LIPA4, LACTS, CMP3M #### [facility] [address] [place] [address] Monocytes (Bld) [#/Vol] 0.2 10*3/uL Normal 0.0-0.8 [facility] Comment on above: Performed By: #### H EMDF, LIPA4, LACTS, CMP3M #### [facility] [address] [place] [address] Monocytes/100 WBC (Bld) 1.4 % Low 2.0-10.0 [facility] Comment on above: Performed By: #### H EMDF, LIPA4, LACTS, CMP3M #### [facility] [address] [place] [address] Platelet mean volume (Bld) [Entitic vol] 6.7 fL Low 7.4-10.4 [facility] Comment on above: Performed By: #### H EMDF, LIPA4, LACTS, CMP3M #### [facility] [address] [place] [address] Platelets (Bld) [#/Vol] 228 10*3/uL Normal 140-440 [facility] Comment on above: Performed By: #### H EMDF, LIPA4, LACTS, CMP3M #### [facility] [address] [place] [address] RBC (Bld) [#/Vol] 3.83 10*6/uL Normal 3.80-5.20 [facility] Comment on above: Performed By: #### H EMDF, LIPA4, LACTS, CMP3M #### [facility] [address] [place] [address] WBC (Bld) [#/Vol] 14.2 10*3/uL High 3.6-10.7 [facility] Comment on above: Performed By: #### H EMDF, LIPA4, LACTS, CMP3M #### [facility] [address] [place] [address] Lactate, Sepsison 10-02-2021 Lactate [Moles/Vol] 1.8 mmol/L 0.7 - 2. 0 mmol/L [facility] Lactate [Moles/Vol] 2 mmol/L 0.7 - 2. 0 mmol/L [facility] Work Phone: [phone] [facility] Work Phone: [phone] Interpretation and review of laboratory results Abnormal [facility] Work Phone: [phone] Lactate [Moles/Vol] 3.2 mmol/L Critically high 0.7 - 2.0 mmol/L [facility] Work Phone: [phone] [facility] Work Phone: [phone] Lactic Acid, Sepsison 2020 Lactate [Moles/Vol] 1.8 mmol/L Normal 0.7-2.0 [facility] Comment on above: Performed By: #### C MP3Travis, MD ROMEOIFF #### [facility] [address] [place] [address] #### PCAL #### [facility] [address] [place] [address] Lactate [Moles/Vol] 2.0 mmol/L Normal 0.7-2.0 [facility] Comment on above: Performed By: #### H EMDF, LIPA4, LACTS, CMP3M #### [facility] [address] [place] [address] Lactate [Moles/Vol] 3.2 mmol/L Critically high 0.7-2.0 [facility] Comment on above: Performed By: #### L ACTS #### [facility] [address] [place] [address] Lipaseon 10-02-2021 Lipase [Catalytic activity/Vol] 134 U/L Normal 23-300 [facility] Comment on above: Performed By: #### H EMDF, LIPA4, LACTS, CMP3M #### [facility] [address] [place] [address] Lipase [Catalytic activity/Vol] 134 U/L 23 - 300 U/L [facility] Work Phone: No Panel Informationon 10-02 [facility] Work Phone: POCT Arterialon 10-02-2021 Base Excess, Arterial -1.0 mmol/L -3.0 - 3.0 mmol/L [facility] CO2 [Moles/Vol] 24.8 mmol/L 23.0 - 27.0 mmol/L [facility] FIO2 Arterial 4 [facility] HCO3 (Bld) [Moles/Vol] 23.6 mmol/L 21.0 - 25.0 mmol/L [facility] Oxygen saturation in Blood 96.7 % 95.0 - 100.0 % [facility] pCO2, Arterial 38.1 mm[Hg] 35.0 - 45.0 mm[Hg] [facility] pH, Arterial 7.400 [facility] pO2, Arterial 86.9 mm[Hg] 80.0 - 100.0 mm[Hg] [facility] POCT Glucoseon 10-02-2021 Glucose [Mass/Vol] 221 mg/dL High 70 - 100 mg/dL [facility] Interpretation and review of laboratory results Abnormal [facility] Glucose [Mass/Vol] 314 mg/dL High 70 - 100 mg/dL [facility] Interpretation and review of laboratory results Abnormal [facility] Procalcitoninon 10-02-2021 Interpretation See Below [facility] Interpretation and review of laboratory results Abnormal [facility] Procalcitonin 75.82 ng/mL High 0.00 - 0.09 ng/mL [facility] Interpretation See Below Normal [facility] Comment on above: Result Comment: PCT <0.50 = Low risk of severe sepsis and/or septic shock. PCT >2.00 = High risk of severe sepsis and/or septic shock. Performed By: #### H EMDF, LIPA4, LACTS, CMP3M #### [facility] [address] [place] [address] SARS-CoV-2, Flu A/B and RSVo n 10-02-2021 SARS-CoV-2 (COVID-19) RNA IGGY+probe Ql (Unsp spec) SARS-CoV-2 --> Status: F Not Detected. Flu A PCR --> Status: F Not Detected. Flu B PCR --> Status: F Not Detected. RSV PCR --> Status: F Not Detected. Expected Result: Not Detected _ Method: Real-time, RT-PCR This assay was developed by [employer] and distributed under an Emergency Use Authorization (EUA) granted by the FDA for the qualitative detection of nucleic acids from SARS-CoV-2, Influenza A, Influenza B, and Respiratory Syncytial Virus. Provider and patient fact sheets can be found at https://www.fda.gov/med ia/234020/download and https://www.fda.gov/med ia/654740/download. Expected Result: Not Detected _ Method: Real-time, RT-PCR This assay was developed by [employer] and distributed under an Emergency Use Authorization (EUA) granted by the FDA for the qualitative detection of nucleic acids from SARS-CoV-2, Influenza A, Influenza B, and Respiratory Syncytial Virus. Provider and patient fact sheets can be found at https://www.fda.gov/med ia/244860/download and https://www.fda.gov/med ia/259419/download. Normal [facility] Comment on above: Performed By: #### L ACTS #### [facility] [address] [place] [address] Urinalysison 10-02-2021 Appearance (U) Clear Clear NA [facility] Work Phone: [phone] Bacteria, UA Few Abnormal Negative /[HPF] [facility] Work Phone: 1 Bilirubin Urine Negative Negative mg/dL [facility] Work Phone: 1 Color (U) Light-Yellow Lt. Yellow NA [facility] Work Phone: 1 Glucose, Ur 1,000 Abnormal Normal (<70) mg/dL [facility] Work Phone: 1 Interpretation and review of laboratory results Abnormal [facility] Work Phone: 1 Ketones Ql (U) Negative Negative mg/dL [facility] Work Phone: 1 LEUKOCYTES, UA 75 Abnormal Negative Ha/uL [facility] Work Phone: 1 Mucous Threads Few Negative /[LPF] [facility] Work Phone: 1 Nitrite, Urine Negative Negative NA [facility] Work Phone: 1 Occult Blood,Urine Negative Negative mg/dL [facility] Work Phone: 1 pH (U) 5.5 [pH] [facility] Work Phone: 1 Protein (U) [Mass/Vol] 20 mg/dL Abnormal Negative [facility] Work Phone: 1 RBC, UA 0-2 0 - 2 /[HPF] [facility] Work Phone: 1 Specific [place], Urine 1.010 S [facility] Work Phone: 1 22 Squam Epithel, UA 3-5 3 - 5 /[HPF] [facility] Work Phone: 1 Urobilinogen, Urine Normal Normal (0-1) mg/dL [facility] Work Phone: 1 22 WBC, UA 11-25 Abnormal 0 - 5 /[HPF] [facility] Work Phone: 1 [facility] Work Phone: XR CHEST PORTABLEon 10-02-[address] [facility] Work Phone: Radiology Study observation (narrative) [facility] Work Phone: XR CHEST PORTABLEOrdered By: Elly Morrow on 10-02-2021 [facility] Work Phone: XR CHEST 1V FRONTALon 2020 XR CHEST 1V FRONTAL Final Report DATE OF EXAM: Nov 29 2020 7:47AM [facility] 5290 - XR CHEST 1V FRONTAL / PROCEDURE REASON: Acute respiratory illness Physician Interpretation EXAMINATION: CHEST RADIOGRAPH (SINGLE VIEW AP OR PA) CLINICAL HISTORY: Acute respiratory illness MQ: XC1_5 Comparison: Chest x-ray November 27, 2020 RESULT: Lines, tubes, and devices: clinical research monitor leads overlie the thorax Lungs and pleura: No consolidation. No lung mass. No pleural effusion. Cardiomediastinal silhouette: Normal cardiomediastinal silhouette. Other: Osseous structures are unremarkable. IMPRESSION: No acute radiographic abnormality. Veneer Joiner: P[facility] Transcribe Date/Time: Nov 29 2020 8:05A Dictated by : JANIE THOMAS MD This examination was interpreted and the report reviewed and electronically signed by: JANIE THOMAS MD on Nov 29 2020 8:05AM EST Normal [facility] CT TIB-FIB WO IVCON LTon CT TIB-FIB WO IVCON LT Final Report DATE OF EXAM: Nov 28 2020 4:47PM [facility] 0092 - CT TIB-FIB WO IVCON LT / PROCEDURE REASON: Lower leg erythema, swelling, cellulitis suspected Physician Interpretation EXAM TITLE: CT LEFT TIBIA-FIBULA WITHOUT IV CONTRAST, CT RIGHT TIBIA-FIBULAR WITHOUT IV CONTRAST DATE: 11/28/2020 COMPARISON: No prior available. CLINICAL INDICATION/HISTORY: Lower leg erythema, swelling, cellulitis is suspected. TECHNIQUE: Thin section helical axial images were obtained through both tibia-fibula without IV contrast. Sagittal and coronal reconstructions were performed. CT Radiation dose: Integrated Dose-length product (DLP) for this visit = [address] Dose Reduction Employed: Automated exposure control(AEC) and iterative recon FINDINGS: Left tibia-fibula: There is no evidence of acute fracture, dislocation, or destructive osseous lesion. No evidence of cortical erosion or periosteal reaction. There is prominent edema involving the subcutaneous space of the left lower leg. No evidence of focal fluid collection to diagnose abscess given the lack of IV contrast. Mild atherosclerotic arterial calcifications are noted. Tricompartmental degenerative changes of the left knee most pronounced in the medial compartment. Right tibia-fibula: There is no evidence of acute fracture, dislocation, or destructive osseous lesion. No evidence of cortical erosion or periosteal reaction. There is prominent edema involving the subcutaneous space of the right lower leg. No evidence of focal fluid collection to diagnose abscess given the lack of IV contrast. Mild atherosclerotic arterial calcifications are noted. Tricompartment degenerative changes of the right knee most pronounced in the patellofemoral and medial joint compartments. IMPRESSION: 1. Nonspecific edema involving the subcutaneous bilateral lower extremities which can be seen with cellulitis. No findings to suggest abscess given the lack of IV contrast. No CT evidence of osteomyelitis in the bilateral tibia or fibula. 2. Tricompartmental degenerative changes of both knees is likely due to osteoarthritis. Veneer Joiner: [facility] Transcribe Date/Time: Nov 28 2020 9:48P Dictated by : CARMEN GERBER MD This examination was interpreted and the report reviewed and electronically signed by: CARMEN GERBER MD on Nov 28 2020 10:07PM [facility] Normal [facility] CT TIB-FIB WO IVCON RTon CT TIB-FIB WO IVCON RT Final Report DATE OF EXAM: Nov 28 2020 4:47PM [facility] 0093 - CT TIB-FIB WO IVCON RT / PROCEDURE REASON: Lower leg erythema, swelling, cellulitis suspected Physician Interpretation EXAM TITLE: CT LEFT TIBIA-FIBULA WITHOUT IV CONTRAST, CT RIGHT TIBIA-FIBULAR WITHOUT IV CONTRAST DATE: 11/28/2020 COMPARISON: No prior available. CLINICAL INDICATION/HISTORY: Lower leg erythema, swelling, cellulitis is suspected. TECHNIQUE: Thin section helical axial images were obtained through both tibia-fibula without IV contrast. Sagittal and coronal reconstructions were performed. CT Radiation dose: Integrated Dose-length product (DLP) for this visit = [address] Dose Reduction Employed: Automated exposure control(AEC) and iterative recon FINDINGS: Left tibia-fibula: There is no evidence of acute fracture, dislocation, or destructive osseous lesion. No evidence of cortical erosion or periosteal reaction. There is prominent edema involving the subcutaneous space of the left lower leg. No evidence of focal fluid collection to diagnose abscess given the lack of IV contrast. Mild atherosclerotic arterial calcifications are noted. Tricompartmental degenerative changes of the left knee most pronounced in the medial compartment. Right tibia-fibula: There is no evidence of acute fracture, dislocation, or destructive osseous lesion. No evidence of cortical erosion or periosteal reaction. There is prominent edema involving the subcutaneous space of the right lower leg. No evidence of focal fluid collection to diagnose abscess given the lack of IV contrast. Mild atherosclerotic arterial calcifications are noted. Tricompartment degenerative changes of the right knee most pronounced in the patellofemoral and medial joint compartments. IMPRESSION: 1. Nonspecific edema involving the subcutaneous bilateral lower extremities which can be seen with cellulitis. No findings to suggest abscess given the lack of IV contrast. No CT evidence of osteomyelitis in the bilateral tibia or fibula. 2. Tricompartmental degenerative changes of both knees is likely due to osteoarthritis. Veneer Joiner: [facility] Transcribe Date/Time: Nov 28 2020 9:48P Dictated by : CARMEN GERBER MD This examination was interpreted and the report reviewed and electronically signed by: CARMEN GERBER MD on Nov 28 2020 10:07PM EST Normal [facility] XR CHEST 1V FRONTALon 2020 XR CHEST 1V FRONTAL Final Report DATE OF EXAM: Nov 27 2020 11:08PM [facility] 5290 - XR CHEST 1V FRONTAL / PROCEDURE REASON: Acute respiratory illness Physician Interpretation EXAMINATION: CHEST RADIOGRAPH (SINGLE VIEW AP OR PA) CLINICAL HISTORY: Acute respiratory illness MQ: XC1_5 Comparison: 10/13/2020 chest x-ray RESULT: Lines, tubes, and devices: None. Lungs and pleura: No consolidation. No lung mass. No pleural effusion. Stable mild prominence of interstitial markings. Cardiomediastinal silhouette: Normal cardiomediastinal silhouette. Other: . IMPRESSION: Stable mild prominence of interstitial markings, which could be due to pulmonary vascular congestion with viral pneumonitis not excluded. Veneer Joiner: [facility] Transcribe Date/Time: Nov 27 2020 11:51P Dictated by : JALEN GARCIA MD This examination was interpreted and the report reviewed and electronically signed by: JALEN GARCIA MD on Nov 27 2020 11:54PM EST Normal [facility] CT BRAIN WO IVCONon 11-22-19 CT BRAIN WO IVCON Final Report DATE OF EXAM: Nov 22 2020 5:44PM [facility] 0504 - CT BRAIN WO IVCON / PROCEDURE REASON: Head trauma, minor, pt on anticoagulation Physician Interpretation EXAMINATION: CT BRAIN WO IVCON, CT CERVICAL SPINE WO IVCON CLINICAL HISTORY: Head trauma, minor, pt on anticoagulation (accession [id number]), C-spine fx, traumatic (accession [id number]) TECHNIQUE: Serial axial images without IV contrast were obtained from the vertex to the foramen magnum. MQ: CTBWO_3 CT Radiation dose: Integrated Dose-Length Product (DLP) for this visit = 1468.[address] Dose Reduction Employed: Automated exposure control(AEC) and iterative recon COMPARISON: None. RESULT: Post-operative change: None. Acute change: No evidence of an acute infarct or other acute parenchymal process. Hemorrhage: No evidence of acute intracranial hemorrhage. ECASS hemorrhagic transformation score: Not Applicable Mass Lesion / Mass Effect: There is no evidence of an intracranial mass or extraaxial fluid collection. No significant mass effect. Chronic change: None apparent. Parenchyma: There is mild generalized volume loss. The brain parenchyma is otherwise within normal limits for age. Ventricles: The ventricles are within normal limits of size and configuration for age. Paranasal sinuses and skull base: There is a polyp/mucus retention cyst in the inferior aspect of the right maxillary sinus. The skull base and imaged soft tissues are unremarkable. Event Sales Manager (topogram) images: No additional findings. EXAMINATION: CT BRAIN WO IVCON, CT CERVICAL SPINE WO IVCON CLINICAL HISTORY: Head trauma, minor, pt on anticoagulation (accession [id number]), C-spine fx, traumatic (accession [id number]) TECHNIQUE: CT of the cervical spine without IV contrast. Spiral, high resolution axial images were obtained from the skull base to the cervicothoracic junction with sagittal and coronal planar reconstructions. MQ: CTCSPWO_5 CT Radiation dose: Integrated CT Dose-Length Product (DLP) for this visit = 1468.[address] Dose Reduction Employed: Automated exposure control(AEC) and iterative recon COMPARISON: None. RESULT: Counting reference: Craniocervical junction. Anatomic Variants: None. Event Sales Manager (topogram) images: No additional findings. Alignment: Alignment is anatomic. Craniocervical junction: Craniocervical junction is normal. Osseous structures/fracture: No evidence of a lytic or blastic process in the visualized spine. No evidence of acute or chronic fracture. Cervical soft tissues: The paraspinal soft tissues are within normal limits. Calcifications are seen scattered in the miguel of the carotid arteries Degenerative changes: Mild degenerative changes are seen throughout the spine. No significant central spinal canal stenosis. IMPRESSION: 1. No evidence of acute intracranial process. 2. Right maxillary sinus disease. 3. No evidence of acute cervical spine fracture. 4. Mild degenerative changes in the spine. Anatomic Variant: None. Assume 7 cervical vertebrae with counting from the craniocervical junction. Veneer Joiner: SKYL[facility] Transcribe Date/Time: Nov 22 2020 5:48P Dictated by : QUIQUE CORRAL MD This examination was interpreted and the report reviewed and electronically signed by: QUIQUE CORRAL MD on Nov 22 2020 6:02PM EST Normal [facility] CT CERVICAL SPINE WO IVCONon 11-22-2020 CT CERVICAL SPINE WO IVCON Final Report DATE OF EXAM: Nov 22 2020 5:44PM [facility] 0505 - CT CERVICAL SPINE WO IVCON / PROCEDURE REASON: C-spine fx, traumatic Physician Interpretation EXAMINATION: CT BRAIN WO IVCON, CT CERVICAL SPINE WO IVCON CLINICAL HISTORY: Head trauma, minor, pt on anticoagulation (accession [id number]), C-spine fx, traumatic (accession [id number]) TECHNIQUE: Serial axial images without IV contrast were obtained from the vertex to the foramen magnum. MQ: CTBWO_3 CT Radiation dose: Integrated Dose-Length Product (DLP) for this visit = 1468.[address] Dose Reduction Employed: Automated exposure control(AEC) and iterative recon COMPARISON: None. RESULT: Post-operative change: None. Acute change: No evidence of an acute infarct or other acute parenchymal process. Hemorrhage: No evidence of acute intracranial hemorrhage. ECASS hemorrhagic transformation score: Not Applicable Mass Lesion / Mass Effect: There is no evidence of an intracranial mass or extraaxial fluid collection. No significant mass effect. Chronic change: None apparent. Parenchyma: There is mild generalized volume loss. The brain parenchyma is otherwise within normal limits for age. Ventricles: The ventricles are within normal limits of size and configuration for age. Paranasal sinuses and skull base: There is a polyp/mucus retention cyst in the inferior aspect of the right maxillary sinus. The skull base and imaged soft tissues are unremarkable. Event Sales Manager (topogram) images: No additional findings. EXAMINATION: CT BRAIN WO IVCON, CT CERVICAL SPINE WO IVCON CLINICAL HISTORY: Head trauma, minor, pt on anticoagulation (accession [id number]), C-spine fx, traumatic (accession [id number]) TECHNIQUE: CT of the cervical spine without IV contrast. Spiral, high resolution axial images were obtained from the skull base to the cervicothoracic junction with sagittal and coronal planar reconstructions. MQ: CTCSPWO_5 CT Radiation dose: Integrated CT Dose-Length Product (DLP) for this visit = 1468.[address] Dose Reduction Employed: Automated exposure control(AEC) and iterative recon COMPARISON: None. RESULT: Counting reference: Craniocervical junction. Anatomic Variants: None. Event Sales Manager (topogram) images: No additional findings. Alignment: Alignment is anatomic. Craniocervical junction: Craniocervical junction is normal. Osseous structures/fracture: No evidence of a lytic or blastic process in the visualized spine. No evidence of acute or chronic fracture. Cervical soft tissues: The paraspinal soft tissues are within normal limits. Calcifications are seen scattered in the miguel of the carotid arteries Degenerative changes: Mild degenerative changes are seen throughout the spine. No significant central spinal canal stenosis. IMPRESSION: 1. No evidence of acute intracranial process. 2. Right maxillary sinus disease. 3. No evidence of acute cervical spine fracture. 4. Mild degenerative changes in the spine. Anatomic Variant: None. Assume 7 cervical vertebrae with counting from the craniocervical junction. Veneer Joiner: PSCB Transcribe Date/Time: Nov 22 2020 5:48P Dictated by : QUIQUE CORRAL MD This examination was interpreted and the report reviewed and electronically signed by: QUIQUE CORRAL MD on Nov 22 2020 6:02PM EST Normal [facility] XR CHEST 1V FRONTALon 2019 XR CHEST 1V FRONTAL Final Report DATE OF EXAM: Oct 13 2020 3:28PM [facility] 5290 - XR CHEST 1V FRONTAL / PROCEDURE REASON: Acute respiratory illness Physician Interpretation EXAMINATION: CHEST RADIOGRAPH (SINGLE VIEW AP OR PA) CLINICAL HISTORY: Acute respiratory illness MQ: XC1_5 Comparison: 10/10/2020. RESULT: Lines, tubes, and devices: None. Lungs and pleura: Unchanged mild prominence of interstitial lung markings. No focal consolidation. No significant pleural effusion. Cardiomediastinal silhouette: Unchanged mild enlargement of the cardiac mediastinal silhouette. Coronary artery calcifications. Other: No evidence of acute displaced fractures. IMPRESSION: 1. Unchanged mild prominence of interstitial lung markings may represent mild interstitial lung disease versus mild interstitial pulmonary edema. 2. No focal consolidation, pneumothorax, or significant pleural effusion. 3. Coronary artery calcifications. Veneer Joiner: [facility] Transcribe Date/Time: Oct 13 2020 3:35P Dictated by : SCOTT OTERO MD This examination was interpreted and the report reviewed and electronically signed by: SCOTT OTERO MD on Oct 13 2020 3:38PM EST Normal [employer] [facility] XR CHEST 1V FRONTALon 2019 XR CHEST 1V FRONTAL Final Report DATE OF EXAM: Oct 10 2020 5:04PM [facility] 5290 - XR CHEST 1V FRONTAL / PROCEDURE REASON: Acute respiratory illness Physician Interpretation EXAMINATION: CHEST RADIOGRAPH (SINGLE VIEW AP PORTABLE UPRIGHT) CLINICAL HISTORY: Acute respiratory illness MQ: XC1_5 Comparison: Chest 2 views 05/30/2012 RESULT: Lines, tubes, and devices: None. Lungs and pleura: No consolidation. No lung mass. No pleural effusion or pneumothorax. Cardiomediastinal silhouette: Cardiac silhouette size is upper limits of normal for AP technique. Other: IMPRESSION: No acute radiographic abnormality. Veneer Joiner: [facility] Transcribe Date/Time: Oct 10 2020 5:20P Dictated by : CARMEN GERBER MD This examination was interpreted and the report reviewed and electronically signed by: CARMEN GERBER MD on Oct 10 2020 5:25PM EST Normal [place] [facility] CBC W/DIFFon 04-12-2020 BASO ABS 0.00 K/CU MM Normal 0-0.2 [facility] Comment on above: Performed By: #### L 500.92335, L500.53732, L500.21681, L500.39411, L500.19521 #### [facility] [address] [place] [address] Basophils/100 WBC (Bld) 0.3 % Normal 0-2 [facility] Comment on above: Performed By: #### L 500.48980, L500.49765, L500.37342, L500.49858, L500.83170 #### [facility] [address] [place] [address] EOS ABS 0.20 K/CU MM Normal 0-0.5 [facility] Comment on above: Performed By: #### L 500.51020, L500.22140, L500.08329, L500.77074, L500.24018 #### [facility] [address] [place] [address] Eosinophils/100 WBC (Bld) 2.3 % Normal 0-5 [facility] Comment on above: Performed By: #### L 500.90059, L500.57375, L500.25605, L500.39046, L500.12201 #### [facility] [address] [place] [address] Erythrocyte distribution width (RBC) [Ratio] 18.8 % High 11-14.5 [facility] Comment on above: Performed By: #### L 500.03264, L500.55022, L500.24418, L500.96486, L500.52159 #### [facility] [address] [place] [address] Hematocrit (Bld) [Volume fraction] 35.0 % Normal 35.0-47.0 [facility] Comment on above: Performed By: #### L 500.48743, L500.82313, L500.52558, L500.85928, L500.41828 #### [facility] [address] [place] [address] Hemoglobin (Bld) [Mass/Vol] 9.7 g/dL Low 11.5-15.5 [facility] Comment on above: Performed By: #### L 500.50493, L500.24389, L500.19210, L500.41411, L500.00546 #### [facility] [address] [place] [address] IMMATR GRAN ABS 0.10 K/CU MM Normal Less than 2 [facility] Comment on above: Performed By: #### L 500.64044, L500.45489, L500.44736, L500.79298, L500.26599 #### [facility] [address] [place] [address] IMMATURE GRAN % 1.4 % Normal Less than 2 [facility] Comment on above: Performed By: #### L 500.75633, L500.44539, L500.47747, L500.84249, L500.03129 #### [facility] [address] [place] [address] Lymphocytes (Bld) [#/Vol] 1.30 K/CU MM Normal 0.9-4.4 [facility] Comment on above: Performed By: #### L 500.68912, L500.60280, L500.44040, L500.60872, L500.02174 #### [facility] [address] [place] [address] Lymphocytes/100 WBC (Bld) 15.5 % Low 20-40 [facility] Comment on above: Performed By: #### L 500.08341, L500.09029, L500.97050, L500.10094, L500.79605 #### [facility] [address] [place] [address] MCHC (RBC) [Mass/Vol] 27.7 g/dL Low 32.0-36.0 [facility] Comment on above: Performed By: #### L 500.62700, L500.40251, L500.84767, L500.62748, L500.15105 #### [facility] [address] [place] [address] MCV (RBC) [Entitic vol] 84.7 fL Normal 80.0-99.0 [facility] Comment on above: Performed By: #### L 500.10712, L500.41846, L500.42741, L500.14316, L500.13867 #### [facility] [address] [place] [address] MONO ABS 0.50 K/CU MM Normal 0.1-1.1 [facility] Comment on above: Performed By: #### L 500.20316, L500.33034, L500.96036, L500.06662, L500.42512 #### [facility] [address] [place] [address] Monocytes/100 WBC (Bld) 6.0 % Normal 2-10 [facility] Comment on above: Performed By: #### L 500.74720, L500.63032, L500.93682, L500.56583, L500.98331 #### [facility] [address] [place] [address] NEUTROPHIL ABS 6.40 K/CU MM Normal 2.0-8.3 [facility] Comment on above: Performed By: #### L 500.70327, L500.11888, L500.69717, L500.87552, L500.47977 #### [facility] [address] [place] [address] Neutrophils/100 WBC (Bld) 74.5 % Normal 45-75 [facility] Comment on above: Performed By: #### L 500.53655, L500.64935, L500.50213, L500.75442, L500.90321 #### [facility] [address] [place] [address] Nucleated RBC/100 WBC (Bld) [Ratio] 0.0 % Normal Less than 1 [facility] Comment on above: Performed By: #### L 500.25778, L500.62140, L500.42784, L500.83745, L500.24863 #### [facility] [address] [place] [address] Platelet mean volume (Bld) [Entitic vol] 8.7 fL Low 9.4-12.4 [facility] Comment on above: Performed By: #### L 500.44600, L500.53975, L500.79957, L500.31031, L500.81498 #### [facility] [address] [place] [address] Platelets (Bld) [#/Vol] 339 K/CU MM Normal 150-450 [facility] Comment on above: Performed By: #### L 500.82209, L500.67010, L500.43996, L500.11698, L500.63912 #### [facility] [address] [place] [address] RBC (Bld) [#/Vol] 4.13 M/CU MM Normal 3.90-5.30 [facility] Comment on above: Performed By: #### L 500.74586, L500.41986, L500.63977, L500.55221, L500.41816 #### [facility] [address] [place] [address] WBC (Bld) [#/Vol] 8.6 K/CUMM Normal 4.5-11.0 [facility] Comment on above: Performed By: #### L 500.10597, L500.02633, L500.64774, L500.43925, L500.89346 #### [facility] [place] [id number] CMPon 04-12-2020 Albumin [Mass/Vol] 3.4 g/dL Normal 3.2-5.0 [facility] Comment on above: Performed By: #### L 500.91297, L500.71926, L500.13040, L500.87982, L500.32472 #### [facility] [address] [place] [address] Albumin/Globulin [Mass ratio] 0.9 {ratio} Normal 0.8-2.0 [facility] Comment on above: Performed By: #### L 500.92778, L500.59091, L500.86613, L500.20436, L500.88895 #### [facility] [address] [place] [address] ALK PHOS 90 U/L Normal 45-117 [facility] Comment on above: Performed By: #### L 500.28513, L500.65585, L500.90839, L500.30142, L500.34158 #### [facility] [address] [place] [address] ALT [Catalytic activity/Vol] 21 U/L Normal 13-61 [facility] Comment on above: Result Comment: RESU LTS MAY BE FALSELY DEPRESSED AFTER THE ADMINISTRATION OF SULFASALAZINE AND/OR SULFAPYRIDINE. Performed By: #### L 500.25920, L500.23935, L500.40367, L500.63586, L500.82043 #### [facility] [address] [place], [place] [id number] Anion gap [Moles/Vol] 9 mmol/L Normal 5-16 [facility] Comment on above: Performed By: #### L 500.94528, L500.84400, L500.07735, L500.35819, L500.90751 #### [facility] [address] [place] [address] BILI TOTAL 0.5 MG/DL Normal 0.2-1.0 [facility] [facility] Comment on above: Performed By: #### L 500.02070, L500.74451, L500.28044, L500.22270, L500.45195 #### [facility] [address] [place] [address] Calcium [Mass/Vol] 9.0 mg/dL Normal 8.5-10.1 [facility] Comment on above: Performed By: #### L 500.25527, L500.18707, L500.00591, L500.12607, L500.05393 #### [facility] [address] [place] [address] Chloride [Moles/Vol] 98 mmol/L Normal 98-107 [facility] Comment on above: Performed By: #### L 500.18212, L500.50327, L500.19300, L500.05402, L500.84737 #### [facility] [address] [place] [address] CO2 [Moles/Vol] 30 mmol/L Normal 21-32 [facility] Comment on above: Performed By: #### L 500.00567, L500.20736, L500.84504, L500.30333, L500.15684 #### [facility] [address] [place], [place] [id number] Creatinine [Mass/Vol] 1.110 mg/dL High 0.510-0.950 [facility] Comment on above: Result Comment: Brendon ents receiving either N-Acetylcysteine (NAC) or Metamizole prior to venipuncture, may have falsely depressed results. Performed By: #### L 500.28836, L500.33158, L500.37098, L500.71524, L500.99106 #### [facility] [place] [address] Globulin (S) [Mass/Vol] 3.7 g/dL Normal 2.2-4.2 [facility] Comment on above: Performed By: #### L 500.30360, L500.26385, L500.26217, L500.19181, L500.57935 #### [facility] [address] [place], [place] [id number] Glucose [Mass/Vol] 183 mg/dL High 70-100 [facility] Comment on above: Result Comment: 70-1 00- Normal Fasting; 100-125 Impaired Fasting; greater than 126 on more than one result- Diabetes. ADA guidelines. Results may be falsely elevated after the administration of Sulfapyridine. Results may be falsely depressed after the administration of Sulfasalazine. Performed By: #### L 500.59917, L500.91932, L500.68705, L500.93220, L500.42731 #### [facility] [address] [place] [address] Potassium [Moles/Vol] 4.1 mmol/L Normal 3.5-5.1 [facility] Comment on above: Performed By: #### L 500.61663, L500.91250, L500.66635, L500.63441, L500.89248 #### [facility] [address] [place] [address] Protein [Mass/Vol] 7.1 g/dL Normal 6.0-8.5 [facility] Comment on above: Performed By: #### L 500.95148, L500.14060, L500.43130, L500.14898, L500.20580 #### [facility] [address] [place] [address] SGOT (AST) 10 U/L Normal 8-34 [facility] Comment on above: Result Comment: RESU LTS MAY BE FALSELY DEPRESSED AFTER THE ADMINISTRATION OF SULFASALAZINE AND/OR SULFAPYRIDINE. Performed By: #### L 500.91718, L500.74615, L500.18342, L500.51275, L500.76722 #### [facility] [address] [place] [address] Sodium [Moles/Vol] 137 mmol/L Normal 136-145 [facility] Comment on above: Performed By: #### L 500.34637, L500.04630, L500.50126, L500.39418, L500.68438 #### [facility] [address] [place] [address] Urea nitrogen [Mass/Vol] 31 mg/dL High 7- [facility] Comment on above: Performed By: #### L 500.09126, L500.41265, L500.24214, L500.36370, L500.52913 #### [facility] [address] [place] [address] Urea nitrogen/Creatinine [Mass ratio] 28 mg/mg High 15-24 [facility] Comment on above: Performed By: #### L 500.42360, L500.55298, L500.31288, L500.56911, L500.61328 #### [facility] [address] [place] [address] GFR ESTon 04-12-2020 IF AMER 60 ML/MIN Normal [facility] Comment on above: Performed By: #### L 500.98170, L500.67000, L500.98480, L500.82160, L500.66866 #### [facility] [address] [place] [address] IF non-AFR AMER 50 ML/MIN Normal [facility] Comment on above: Performed By: #### L 500.41356, L500.68613, L500.49842, L500.58685, L500.62459 #### [facility] [address] [place], [place] [address] [facility]2020 HbA1c (Bld) [Mass fraction] 8.3 % High 4.3-6.0 [facility] Comment on above: Performed By: #### L 500., L500.42665, L500.51150, L500.44067, L500.51417 #### [facility] [address] [place] [address] LIPIDon 04-12-2020 Cholesterol [Mass/Vol] 190 mg/dL Normal 0-199 [facility] Comment on above: Performed By: #### L 500.39650, L500.82124, L500.60889, L500.48850, L500.84006 #### [facility] [address] [place] [address] Cholesterol in HDL [Mass/Vol] 47 mg/dL Normal [place] 40 [facility] Comment on above: Result Comment: Brendon ents receiving Metamizole prior to venipuncture, may have falsely depressed results. Performed By: #### L 500.09065, L500.83263, L500.23789, L500.79329, L500.95493 #### [facility] [address] [place], [place] [id number] Cholesterol in LDL [Mass/Vol] 92 mg/dL Normal 0-129 [facility] Comment on above: Result Comment: ___C HOLESTEROL/HDL RATIO RISK___ CHD RISK = Total CHOL LDL HDL (CHOL/HDL) Recommended <200 <130 >40 <3.4 Borderline 200-239 130-159 3.4-4.99 High >240 >160 >5.0 Performed By: #### L 500.75369, L500.92539, L500.19334, L500.78320, L500.32356 #### [facility] [address] [place] [id number] Triglyceride [Mass/Vol] 256 mg/dL High 30-149 [facility] Comment on above: Result Comment: Brendon ents receiving either N-Acetylcysteine (NAC) or Metamizole prior to venipuncture, may have falsely depressed results. Performed By: #### L 500.33557, L500.45933, L500.81889, L500.15471, L500.92680 #### [facility] [address] [place] [address] .Auto Diffon 02-24-2020 Ammonia (P) [Mass/Vol] 0.90 10 3/mcL Normal 0.09-1.40 [facility] ([place]) Comment on above: Performed By: #### C AION, MG, TROPI, PHOS, CMP, PBNP, GFR, TSH, CBC, DIFF, MORPH #### [address] [address] Basophils (Bld) [#/Vol] 0.10 10 3/mcL Normal 0.00-0.27 [facility] ([place]) Comment on above: Performed By: #### C AION, MG, TROPI, PHOS, CMP, PBNP, GFR, TSH, CBC, DIFF, MORPH #### [address] [address] Basophils/100 WBC (Bld) 0.6 % Normal 0.0-2.5 [facility] ([place]) Comment on above: Performed By: #### C AION, MG, TROPI, PHOS, CMP, PBNP, GFR, TSH, CBC, DIFF, MORPH #### [address] [address] Eosinophils (Bld) [#/Vol] 0.60 10 3/mcL Normal 0.00-0.65 [facility] ([place]) Comment on above: Performed By: #### C AION, MG, TROPI, PHOS, CMP, PBNP, GFR, TSH, CBC, DIFF, MORPH #### [address] [address] Eosinophils/100 WBC (Bld) 6.7 % High 0.0-6.0 [facility] ([place]) Comment on above: Performed By: #### C AION, MG, TROPI, PHOS, CMP, PBNP, GFR, TSH, CBC, DIFF, MORPH #### [address] [address] Lymphocytes (Bld) [#/Vol] 1.70 10 3/mcL Normal 0.90-4.32 [facility] ([place]) Comment on above: Performed By: #### C AION, MG, TROPI, PHOS, CMP, PBNP, GFR, TSH, CBC, DIFF, MORPH #### [address] [address] Lymphocytes/100 WBC (Bld) 19.2 % Low 20.0-40.0 [facility] ([place]) Comment on above: Performed By: #### C AION, MG, TROPI, PHOS, CMP, PBNP, GFR, TSH, CBC, DIFF, MORPH #### [address] [address] Monocytes/100 WBC (Bld) 10.0 % Normal 2.0-13.0 [facility] ([place]) Comment on above: Performed By: #### C AION, MG, TROPI, PHOS, CMP, PBNP, GFR, TSH, CBC, DIFF, MORPH #### [address] [address] Neutrophils/100 WBC (Bld) 63.5 % Normal 50.0-75.0 [facility] ([place]) Comment on above: Performed By: #### C AION, MG, TROPI, PHOS, CMP, PBNP, GFR, TSH, CBC, DIFF, MORPH #### [address] [address] .GFRon 02-24-2020 GFR Non- 41 ml/min/1.73sqm Normal [facility] ([place]) Comment on above: Result Comment: GFR Population mean for , Non- Americans Ages 20-29 = 116 mL/min/1.73 sq.m. Ages 30-39 = 107 mL/min/1.73 sq.m. Ages 40-49 = 99 mL/min/1.73 sq.m. Ages 50-59 = 93 mL/min/1.73 sq.m. Ages 60-69 = 85 mL/min/1.73 sq.m. Ages 70+ = 75 mL/min/1.73 sq.m. Chronic Kidney Disease: Less than 60 mL/min/1.73 square meters End Stage Renal Disease: Less than 15 mL/min/1.73 square meters Performed By: #### C AION, MG, TROPI, PHOS, CMP, PBNP, GFR, TSH, CBC, DIFF, MORPH #### [address] [address] GFR 49 ml/min/1.73sqm Normal [facility] ([place]) Comment on above: Result Comment: GFR Population mean for , Non- Americans Ages 20-29 = 116 mL/min/1.73 sq.m. Ages 30-39 = 107 mL/min/1.73 sq.m. Ages 40-49 = 99 mL/min/1.73 sq.m. Ages 50-59 = 93 mL/min/1.73 sq.m. Ages 60-69 = 85 mL/min/1.73 sq.m. Ages 70+ = 75 mL/min/1.73 sq.m. Chronic Kidney Disease: Less than 60 mL/min/1.73 square meters End Stage Renal Disease: Less than 15 mL/min/1.73 square meters Performed By: #### C AION, MG, TROPI, PHOS, CMP, PBNP, GFR, TSH, CBC, DIFF, MORPH #### [address] [address] .NEUABSon 02-24-2020 Neutrophils (Bld) [#/Vol] 5.50 10 3/mcL Normal 2.25-8.10 [facility] ([place]) Comment on above: Performed By: #### C AION, MG, TROPI, PHOS, CMP, PBNP, GFR, TSH, CBC, DIFF, MORPH #### [address] [address] BMPon 02-24-2020 Creatinine [Mass/Vol] 1.32 mg/dL High 0.50-1.20 [facility] ([place]) Comment on above: Performed By: #### C AION, MG, TROPI, PHOS, CMP, PBNP, GFR, TSH, CBC, DIFF, MORPH #### [address] [address] Urea nitrogen/Creatinine [Mass ratio] 18.2 ratio Normal 10.0-22.0 [facility] ([place]) Comment on above: Performed By: #### C AION, MG, TROPI, PHOS, CMP, PBNP, GFR, TSH, CBC, DIFF, MORPH #### [address] [address] Calcium [Mass/Vol] 8.2 mg/dL Low 8.4-10.1 [facility] ([place]) Comment on above: Performed By: #### C AION, MG, TROPI, PHOS, CMP, PBNP, GFR, TSH, CBC, DIFF, MORPH #### [address] [address] Chloride [Moles/Vol] 100 mmol/L Normal 98-110 [facility] ([place]) Comment on above: Performed By: #### C AION, MG, TROPI, PHOS, CMP, PBNP, GFR, TSH, CBC, DIFF, MORPH #### [address] [address] CO2 [Moles/Vol] 30 mmol/L Normal 22-32 [facility] ([place]) Comment on above: Performed By: #### C AION, MG, TROPI, PHOS, CMP, PBNP, GFR, TSH, CBC, DIFF, MORPH #### [address] [address] Electrolyte Balance 7.0 mEq/L Normal 4.0-15.0 [facility] ([place]) Comment on above: Performed By: #### C AION, MG, TROPI, PHOS, CMP, PBNP, GFR, TSH, CBC, DIFF, MORPH #### [address] [address] Glucose [Mass/Vol] 190 mg/dL High 82-115 [facility] ([place] Comment on above: Performed By: #### C AION, MG, TROPI, PHOS, CMP, PBNP, GFR, TSH, CBC, DIFF, MORPH #### [address] [address] Potassium [Moles/Vol] 4.4 mmol/L Normal 3.5-5.0 [facility] ([place]) Comment on above: Performed By: #### C AION, MG, TROPI, PHOS, CMP, PBNP, GFR, TSH, CBC, DIFF, MORPH #### [address] [address] Sodium [Moles/Vol] 137 mmol/L Normal 136-145 [facility] ([place]) Comment on above: Performed By: #### C AION, MG, TROPI, PHOS, CMP, PBNP, GFR, TSH, CBC, DIFF, MORPH #### [place] [id number] Urea nitrogen [Mass/Vol] 24.0 mg/dL High 8.0-22.0 [facility] ([place]) Comment on above: Performed By: #### C AION, MG, TROPI, PHOS, CMP, PBNP, GFR, TSH, CBC, DIFF, MORPH #### [place] [id number] CBCon 02-24-2020 Erythrocyte distribution width (RBC) [Ratio] 20.3 % High 11.5-15.5 [facility] ([place]) Comment on above: Performed By: #### C AION, MG, TROPI, PHOS, CMP, PBNP, GFR, TSH, CBC, DIFF, MORPH #### [place] [address] Hematocrit (Bld) [Volume fraction] 30.1 % Low 34.0-46.0 [facility] ([place]) Comment on above: Performed By: #### C AION, MG, TROPI, PHOS, CMP, PBNP, GFR, TSH, CBC, DIFF, MORPH #### [place] [address] Hemoglobin (Bld) [Mass/Vol] 9.3 G/dL Low 12.0-16.0 [facility] ([place]) Comment on above: Performed By: #### C AION, MG, TROPI, PHOS, CMP, PBNP, GFR, TSH, CBC, DIFF, MORPH #### [place] [id number] MCH (RBC) [Entitic mass] 24.0 pg Low 27.0-33.0 [facility] ([place]) Comment on above: Performed By: #### C AION, MG, TROPI, PHOS, CMP, PBNP, GFR, TSH, CBC, DIFF, MORPH #### [place] [id number] MCHC (RBC) [Mass/Vol] 31.0 G/dL Low 32.0-36.0 [facility] ([place]) Comment on above: Performed By: #### C AION, MG, TROPI, PHOS, CMP, PBNP, GFR, TSH, CBC, DIFF, MORPH #### [address] [address] MCV (RBC) [Entitic vol] 77.4 fL Low 80.0-99.0 [facility] ([place]) Comment on above: Performed By: #### C AION, MG, TROPI, PHOS, CMP, PBNP, GFR, TSH, CBC, DIFF, MORPH #### [address] [address] Platelet mean volume (Bld) [Entitic vol] 6.6 fL Normal 6.6-10.5 [facility] ([place]) Comment on above: Performed By: #### C AION, MG, TROPI, PHOS, CMP, PBNP, GFR, TSH, CBC, DIFF, MORPH #### [address] [address] Platelets (Bld) [#/Vol] 434 10 3/mcL Normal 150-450 [facility] ([place]) Comment on above: Performed By: #### C AION, MG, TROPI, PHOS, CMP, PBNP, GFR, TSH, CBC, DIFF, MORPH #### [place] [id number] RBC (Bld) [#/Vol] 3.88 10 6/mcL Low 4.10-5.30 [facility] ([place]) Comment on above: Performed By: #### C AION, MG, TROPI, PHOS, CMP, PBNP, GFR, TSH, CBC, DIFF, MORPH #### [address] [address] WBC (Bld) [#/Vol] 8.70 10 3/mcL Normal 4.50-10.80 [facility] ([place]) Comment on above: Performed By: #### C AION, MG, TROPI, PHOS, CMP, PBNP, GFR, TSH, CBC, DIFF, MORPH #### [address] [address] OCC (LAB)on 02-24-2020 Occult Blood Fecal Negative Normal Negative [facility] ([place]) Comment on above: Result Comment: This test utilizes the guaiac fecal blood method, which detects peroxidase activity (heme) indicating bleeding from stomach, small intestine, or large intestine. If bleeding from either upper or lower gastrointestinal tract is a clinical consideration, the [facility] recommends the use of both the guaiac fecal blood test and the Immunochemical fecal blood test. Performed By: #### C AION, MG, TROPI, PHOS, CMP, PBNP, GFR, TSH, CBC, DIFF, MORPH #### [address] [address] .Auto Diffon 02-23-2020 Ammonia (P) [Mass/Vol] 0.70 10 3/mcL Normal 0.09-1.40 [facility] ([place]) Comment on above: Performed By: #### C AION, MG, TROPI, PHOS, CMP, PBNP, GFR, TSH, CBC, DIFF, MORPH #### [address] [address] Basophils (Bld) [#/Vol] 0.00 10 3/mcL Normal 0.00-0.27 [facility] ([place]) Comment on above: Performed By: #### C AION, MG, TROPI, PHOS, CMP, PBNP, GFR, TSH, CBC, DIFF, MORPH #### [address] [address] Basophils/100 WBC (Bld) 0.4 % Normal 0.0-2.5 [facility] ([place]) Comment on above: Performed By: #### C AION, MG, TROPI, PHOS, CMP, PBNP, GFR, TSH, CBC, DIFF, MORPH #### [address] [address] Eosinophils (Bld) [#/Vol] 0.50 10 3/mcL Normal 0.00-0.65 [facility] ([place]) Comment on above: Performed By: #### C AION, MG, TROPI, PHOS, CMP, PBNP, GFR, TSH, CBC, DIFF, MORPH #### [address] [address] Eosinophils/100 WBC (Bld) 7.7 % High 0.0-6.0 [facility] ([place]) Comment on above: Performed By: #### C AION, MG, TROPI, PHOS, CMP, PBNP, GFR, TSH, CBC, DIFF, MORPH #### [address] [address] Lymphocytes (Bld) [#/Vol] 1.40 10 3/mcL Normal 0.90-4.32 [facility] ([place]) Comment on above: Performed By: #### C AION, MG, TROPI, PHOS, CMP, PBNP, GFR, TSH, CBC, DIFF, MORPH #### [address] [address] Lymphocytes/100 WBC (Bld) 19.6 % Low 20.0-40.0 [facility] ([place]) Comment on above: Performed By: #### C AION, MG, TROPI, PHOS, CMP, PBNP, GFR, TSH, CBC, DIFF, MORPH #### [address] [address] Monocytes/100 WBC (Bld) 9.6 % Normal 2.0-13.0 [facility] ([place]) Comment on above: Performed By: #### C AION, MG, TROPI, PHOS, CMP, PBNP, GFR, TSH, CBC, DIFF, MORPH #### [address] [address] Neutrophils/100 WBC (Bld) 62.7 % Normal 50.0-75.0 [facility] ([place]) Comment on above: Performed By: #### C AION, MG, TROPI, PHOS, CMP, PBNP, GFR, TSH, CBC, DIFF, MORPH #### [address] [address] .GFRon 02-23-2020 GFR >60 Normal [facility] ([place]) Comment on above: Result Comment: GFR Population mean for , Non- Americans Ages 20-29 = 116 mL/min/1.73 sq.m. Ages 30-39 = 107 mL/min/1.73 sq.m. Ages 40-49 = 99 mL/min/1.73 sq.m. Ages 50-59 = 93 mL/min/1.73 sq.m. Ages 60-69 = 85 mL/min/1.73 sq.m. Ages 70+ = 75 mL/min/1.73 sq.m. Chronic Kidney Disease: Less than 60 mL/min/1.73 square meters End Stage Renal Disease: Less than 15 mL/min/1.73 square meters Performed By: #### C AION, MG, TROPI, PHOS, CMP, PBNP, GFR, TSH, CBC, DIFF, MORPH #### [address] [address] GFR Non- 55 ml/min/1.73sqm Normal [facility] ([place]) Comment on above: Result Comment: GFR Population mean for , Non- Americans Ages 20-29 = 116 mL/min/1.73 sq.m. Ages 30-39 = 107 mL/min/1.73 sq.m. Ages 40-49 = 99 mL/min/1.73 sq.m. Ages 50-59 = 93 mL/min/1.73 sq.m. Ages 60-69 = 85 mL/min/1.73 sq.m. Ages 70+ = 75 mL/min/1.73 sq.m. Chronic Kidney Disease: Less than 60 mL/min/1.73 square meters End Stage Renal Disease: Less than 15 mL/min/1.73 square meters Performed By: #### C AION, MG, TROPI, PHOS, CMP, PBNP, GFR, TSH, CBC, DIFF, MORPH #### [address] [address] .NEUABSon 02-23-2020 Neutrophils (Bld) [#/Vol] 4.40 10 3/mcL Normal 2.25-8.10 [facility] ([place]) Comment on above: Performed By: #### C AION, MG, TROPI, PHOS, CMP, PBNP, GFR, TSH, CBC, DIFF, MORPH #### [address] [address] BMPon 02-23-2020 Calcium [Mass/Vol] 8.0 mg/dL Low 8.4-10.1 [facility] ([place]) Comment on above: Performed By: #### C AION, MG, TROPI, PHOS, CMP, PBNP, GFR, TSH, CBC, DIFF, MORPH #### [address] [address] CO2 [Moles/Vol] 31 mmol/L Normal 22-32 [facility] ([place]) Comment on above: Performed By: #### C AION, MG, TROPI, PHOS, CMP, PBNP, GFR, TSH, CBC, DIFF, MORPH #### [address] [address] Creatinine [Mass/Vol] 1.02 mg/dL Normal 0.50-1.20 [facility] ([place]) Comment on above: Performed By: #### C AION, MG, TROPI, PHOS, CMP, PBNP, GFR, TSH, CBC, DIFF, MORPH #### [address] [address] Electrolyte Balance 7.0 mEq/L Normal 4.0-15.0 [facility] ([place]) Comment on above: Performed By: #### C AION, MG, TROPI, PHOS, CMP, PBNP, GFR, TSH, CBC, DIFF, MORPH #### [address] [address] Glucose [Mass/Vol] 162 mg/dL High 82-115 [facility] ([place]) Comment on above: Performed By: #### C AION, MG, TROPI, PHOS, CMP, PBNP, GFR, TSH, CBC, DIFF, MORPH #### [address] [address] Potassium [Moles/Vol] 4.2 mmol/L Normal 3.5-5.0 [facility] ([place]) Comment on above: Performed By: #### C AION, MG, TROPI, PHOS, CMP, PBNP, GFR, TSH, CBC, DIFF, MORPH #### [address] [address] Urea nitrogen [Mass/Vol] 15.0 mg/dL Normal 8.0-22.0 [facility] ([place]) Comment on above: Performed By: #### C AION, MG, TROPI, PHOS, CMP, PBNP, GFR, TSH, CBC, DIFF, MORPH #### [address] [address] Urea nitrogen/Creatinine [Mass ratio] 14.7 ratio Normal 10.0-22.0 [facility] ([place]) Comment on above: Performed By: #### C AION, MG, TROPI, PHOS, CMP, PBNP, GFR, TSH, CBC, DIFF, MORPH #### [address] [address] Chloride [Moles/Vol] 101 mmol/L Normal 98-110 [facility] ([place]) Comment on above: Performed By: #### C AION, MG, TROPI, PHOS, CMP, PBNP, GFR, TSH, CBC, DIFF, MORPH #### [address] [address] Sodium [Moles/Vol] 139 mmol/L Normal 136-145 [facility] ([place] Comment on above: Performed By: #### C AION, MG, TROPI, PHOS, CMP, PBNP, GFR, TSH, CBC, DIFF, MORPH #### [address] [address] CBCon 02-23-2020 WBC (Bld) [#/Vol] 7.00 10 3/mcL Normal 4.50-10.80 [facility] ([place]) Comment on above: Result Comment: Capi llary or microtainer specimen received. Performed By: #### C AION, MG, TROPI, PHOS, CMP, PBNP, GFR, TSH, CBC, DIFF, MORPH #### [address] [address] Erythrocyte distribution width (RBC) [Ratio] 20.0 % High 11.5-15.5 [facility] ([place]) Comment on above: Performed By: #### C AION, MG, TROPI, PHOS, CMP, PBNP, GFR, TSH, CBC, DIFF, MORPH #### [place] [id number] Hematocrit (Bld) [Volume fraction] 29.0 % Low 34.0-46.0 [facility] ([place]) Comment on above: Performed By: #### C AION, MG, TROPI, PHOS, CMP, PBNP, GFR, TSH, CBC, DIFF, MORPH #### [place] [address] Hemoglobin (Bld) [Mass/Vol] 9.0 G/dL Low 12.0-16.0 [facility] ([place]) Comment on above: Performed By: #### C AION, MG, TROPI, PHOS, CMP, PBNP, GFR, TSH, CBC, DIFF, MORPH #### [place] [address] MCH (RBC) [Entitic mass] 23.6 pg Low 27.0-33.0 [facility] ([place]) Comment on above: Performed By: #### C AION, MG, TROPI, PHOS, CMP, PBNP, GFR, TSH, CBC, DIFF, MORPH #### [place] [id number] MCHC (RBC) [Mass/Vol] 31.2 G/dL Low 32.0-36.0 [facility] ([place]) Comment on above: Performed By: #### C AION, MG, TROPI, PHOS, CMP, PBNP, GFR, TSH, CBC, DIFF, MORPH #### [place] [address] MCV (RBC) [Entitic vol] 75.7 fL Low 80.0-99.0 [facility] ([place]) Comment on above: Performed By: #### C AION, MG, TROPI, PHOS, CMP, PBNP, GFR, TSH, CBC, DIFF, MORPH #### [place] [address] Platelet mean volume (Bld) [Entitic vol] 6.3 fL Low 6.6-10.5 [facility] ([place]) Comment on above: Performed By: #### C AION, MG, TROPI, PHOS, CMP, PBNP, GFR, TSH, CBC, DIFF, MORPH #### [facility] [address] [place], [place] [address] Platelets (Bld) [#/Vol] 438 10 3/mcL Normal 150-450 [facility] ([place]) Comment on above: Performed By: #### C AION, MG, TROPI, PHOS, CMP, PBNP, GFR, TSH, CBC, DIFF, MORPH #### [address] [address] RBC (Bld) [#/Vol] 3.83 10 6/mcL Low 4.10-5.30 [facility] ([place]) Comment on above: Performed By: #### C AION, MG, TROPI, PHOS, CMP, PBNP, GFR, TSH, CBC, DIFF, MORPH #### [place] [id number] CURon 02-23-2020 CUR . MICRO - Microbiology PROCEDURE: Urine Culture [*1] SOURCE: Urine, Clean Catch BODY SITE: COLLECTED DATE/TIME: 02/20/2020 17:10 EDT RECEIVED DATE/TIME: 02/21/2020 13:42 EDT START DATE/TIME: 02/21/2020 13:43 EDT FREE TEXT SOURCE: FINAL REPORTS Final Report [] Verified Date/Time/Personnel: 02/23/2020 07:29 EDT >100,000 organisms per mL Escherichia coli PRELIMINARY REPORTS Preliminary Report [] Verified Date/Time/Personnel: 02/22/2020 08:53 EDT >100,000 organisms per mL Gram Negative Rods Final identification and [facility] to follow. SUSCEPTIBILITY RESULTS Escherichia coli Antibiotic [facility] Dilutn [facility] Interp Ampicillin <=8 Susceptible Cefazolin <=8 Susceptible Ciprofloxacin <=1 Susceptible Gentamicin <=4 Susceptible Levofloxacin <=2 Susceptible Meropenem <=1 Susceptible Nitrofurantoin <=32 Susceptible Trimethoprim/ <=2/38 Susceptible Sulfa Performing Locations *1: This test was performed at: [address], [address] , [facility] ([place]) Comment on above: Performed By: #### C AION, MG, TROPI, PHOS, CMP, PBNP, GFR, TSH, CBC, DIFF, MORPH #### [address] [address] .Auto Diffon 02-22-2020 Ammonia (P) [Mass/Vol] 0.70 10 3/mcL Normal 0.09-1.40 [facility] ([place]) Comment on above: Performed By: #### C AION, MG, TROPI, PHOS, CMP, PBNP, GFR, TSH, CBC, DIFF, MORPH #### [address] [address] Basophils (Bld) [#/Vol] 0.00 10 3/mcL Normal 0.00-0.27 [facility] ([place]) Comment on above: Performed By: #### C AION, MG, TROPI, PHOS, CMP, PBNP, GFR, TSH, CBC, DIFF, MORPH #### [address] [address] Basophils/100 WBC (Bld) 0.7 % Normal 0.0-2.5 [facility] ([place]) Comment on above: Performed By: #### C AION, MG, TROPI, PHOS, CMP, PBNP, GFR, TSH, CBC, DIFF, MORPH #### [address] [address] Eosinophils (Bld) [#/Vol] 0.60 10 3/mcL Normal 0.00-0.65 [facility] ([place]) Comment on above: Performed By: #### C AION, MG, TROPI, PHOS, CMP, PBNP, GFR, TSH, CBC, DIFF, MORPH #### [address] [address] Eosinophils/100 WBC (Bld) 9.2 % High 0.0-6.0 [facility] ([place]) Comment on above: Performed By: #### C AION, MG, TROPI, PHOS, CMP, PBNP, GFR, TSH, CBC, DIFF, MORPH #### [address] [address] Lymphocytes (Bld) [#/Vol] 1.20 10 3/mcL Normal 0.90-4.32 [facility] ([place]) Comment on above: Performed By: #### C AION, MG, TROPI, PHOS, CMP, PBNP, GFR, TSH, CBC, DIFF, MORPH #### [address] [address] Lymphocytes/100 WBC (Bld) 16.8 % Low 20.0-40.0 [facility] ([place]) Comment on above: Performed By: #### C AION, MG, TROPI, PHOS, CMP, PBNP, GFR, TSH, CBC, DIFF, MORPH #### [address] [address] Monocytes/100 WBC (Bld) 10.2 % Normal 2.0-13.0 [facility] ([place]) Comment on above: Performed By: #### C AION, MG, TROPI, PHOS, CMP, PBNP, GFR, TSH, CBC, DIFF, MORPH #### [address] [address] Neutrophils/100 WBC (Bld) 63.1 % Normal 50.0-75.0 [facility] ([place]) Comment on above: Performed By: #### C AION, MG, TROPI, PHOS, CMP, PBNP, GFR, TSH, CBC, DIFF, MORPH #### [address] [address] .GFRon 02-22-2020 GFR Non- 50 ml/min/1.73sqm Normal [facility] ([place]) Comment on above: Result Comment: GFR Population mean for , Non- Americans Ages 20-29 = 116 mL/min/1.73 sq.m. Ages 30-39 = 107 mL/min/1.73 sq.m. Ages 40-49 = 99 mL/min/1.73 sq.m. Ages 50-59 = 93 mL/min/1.73 sq.m. Ages 60-69 = 85 mL/min/1.73 sq.m. Ages 70+ = 75 mL/min/1.73 sq.m. Chronic Kidney Disease: Less than 60 mL/min/1.73 square meters End Stage Renal Disease: Less than 15 mL/min/1.73 square meters Performed By: #### C AION, MG, TROPI, PHOS, CMP, PBNP, GFR, TSH, CBC, DIFF, MORPH #### [address] [address] GFR >60 Normal [facility] ([place]) Comment on above: Result Comment: GFR Population mean for , Non- Americans Ages 20-29 = 116 mL/min/1.73 sq.m. Ages 30-39 = 107 mL/min/1.73 sq.m. Ages 40-49 = 99 mL/min/1.73 sq.m. Ages 50-59 = 93 mL/min/1.73 sq.m. Ages 60-69 = 85 mL/min/1.73 sq.m. Ages 70+ = 75 mL/min/1.73 sq.m. Chronic Kidney Disease: Less than 60 mL/min/1.73 square meters End Stage Renal Disease: Less than 15 mL/min/1.73 square meters Performed By: #### C AION, MG, TROPI, PHOS, CMP, PBNP, GFR, TSH, CBC, DIFF, MORPH #### [address] [address] .NEUABSon 02-22-2020 Neutrophils (Bld) [#/Vol] 4.30 10 3/mcL Normal 2.25-8.10 [facility] ([place]) Comment on above: Performed By: #### C AION, MG, TROPI, PHOS, CMP, PBNP, GFR, TSH, CBC, DIFF, MORPH #### [address] [address] BMPon 02-22-2020 Creatinine [Mass/Vol] 1.10 mg/dL Normal 0.50-1.20 [facility] ([place]) Comment on above: Performed By: #### C AION, MG, TROPI, PHOS, CMP, PBNP, GFR, TSH, CBC, DIFF, MORPH #### [address] [address] Urea nitrogen/Creatinine [Mass ratio] 16.4 ratio Normal 10.0-22.0 [facility] ([place]) Comment on above: Performed By: #### C AION, MG, TROPI, PHOS, CMP, PBNP, GFR, TSH, CBC, DIFF, MORPH #### [address] [address] Calcium [Mass/Vol] 7.7 mg/dL Low 8.4-10.1 [facility] ([place]) Comment on above: Performed By: #### C AION, MG, TROPI, PHOS, CMP, PBNP, GFR, TSH, CBC, DIFF, MORPH #### [address] [address] Chloride [Moles/Vol] 105 mmol/L Normal 98-110 [facility] ([place]) Comment on above: Performed By: #### C AION, MG, TROPI, PHOS, CMP, PBNP, GFR, TSH, CBC, DIFF, MORPH #### [address] [address] CO2 [Moles/Vol] 29 mmol/L Normal 22-32 [facility] ([place]) Comment on above: Performed By: #### C AION, MG, TROPI, PHOS, CMP, PBNP, GFR, TSH, CBC, DIFF, MORPH #### [address] [address] Electrolyte Balance 5.0 mEq/L Normal 4.0-15.0 [facility] ([place]) Comment on above: Performed By: #### C AION, MG, TROPI, PHOS, CMP, PBNP, GFR, TSH, CBC, DIFF, MORPH #### [address] [address] Glucose [Mass/Vol] 135 mg/dL High 82-115 [facility] ([place]) Comment on above: Performed By: #### C AION, MG, TROPI, PHOS, CMP, PBNP, GFR, TSH, CBC, DIFF, MORPH #### [address] [address] Potassium [Moles/Vol] 4.0 mmol/L Normal 3.5-5.0 [facility] ([place]) Comment on above: Performed By: #### C AION, MG, TROPI, PHOS, CMP, PBNP, GFR, TSH, CBC, DIFF, MORPH #### [address] [address] Sodium [Moles/Vol] 139 mmol/L Normal 136-145 [facility] ([place]) Comment on above: Performed By: #### C AION, MG, TROPI, PHOS, CMP, PBNP, GFR, TSH, CBC, DIFF, MORPH #### [place] [id number] Urea nitrogen [Mass/Vol] 18.0 mg/dL Normal 8.0-22.0 [facility] ([place]) Comment on above: Performed By: #### C AION, MG, TROPI, PHOS, CMP, PBNP, GFR, TSH, CBC, DIFF, MORPH #### [place] [address] CBCon 02-22-2020 Erythrocyte distribution width (RBC) [Ratio] 19.4 % High 11.5-15.5 [facility] ([place]) Comment on above: Performed By: #### C AION, MG, TROPI, PHOS, CMP, PBNP, GFR, TSH, CBC, DIFF, MORPH #### [place] [address] Hematocrit (Bld) [Volume fraction] 25.7 % Low 34.0-46.0 [facility] ([place]) Comment on above: Performed By: #### C AION, MG, TROPI, PHOS, CMP, PBNP, GFR, TSH, CBC, DIFF, MORPH #### [place] [address] Hemoglobin (Bld) [Mass/Vol] 8.1 G/dL Low 12.0-16.0 [facility] ([place]) Comment on above: Performed By: #### C AION, MG, TROPI, PHOS, CMP, PBNP, GFR, TSH, CBC, DIFF, MORPH #### [place] [id number] MCH (RBC) [Entitic mass] 24.0 pg Low 27.0-33.0 [facility] ([place]) Comment on above: Performed By: #### C AION, MG, TROPI, PHOS, CMP, PBNP, GFR, TSH, CBC, DIFF, MORPH #### [address] [address] MCHC (RBC) [Mass/Vol] 31.5 G/dL Low 32.0-36.0 [facility] ([place]) Comment on above: Performed By: #### C AION, MG, TROPI, PHOS, CMP, PBNP, GFR, TSH, CBC, DIFF, MORPH #### [address] [address] MCV (RBC) [Entitic vol] 76.1 fL Low 80.0-99.0 [facility] ([place]) Comment on above: Performed By: #### C AION, MG, TROPI, PHOS, CMP, PBNP, GFR, TSH, CBC, DIFF, MORPH #### [address] [address] Platelet mean volume (Bld) [Entitic vol] 6.6 fL Normal 6.6-10.5 [facility] ([place]) Comment on above: Performed By: #### C AION, MG, TROPI, PHOS, CMP, PBNP, GFR, TSH, CBC, DIFF, MORPH #### [address] [address] Platelets (Bld) [#/Vol] 371 10 3/mcL Normal 150-450 [facility] ([place]) Comment on above: Performed By: #### C AION, MG, TROPI, PHOS, CMP, PBNP, GFR, TSH, CBC, DIFF, MORPH #### [address] [address] RBC (Bld) [#/Vol] 3.37 10 6/mcL Low 4.10-5.30 [facility] ([place]) Comment on above: Performed By: #### C AION, MG, TROPI, PHOS, CMP, PBNP, GFR, TSH, CBC, DIFF, MORPH #### [address] [address] WBC (Bld) [#/Vol] 6.90 10 3/mcL Normal 4.50-10.80 [facility] ([place]) Comment on above: Performed By: #### C AION, MG, TROPI, PHOS, CMP, PBNP, GFR, TSH, CBC, DIFF, MORPH #### [address] [address] .Auto Diffon 02-21-2020 Ammonia (P) [Mass/Vol] 0.60 10 3/mcL Normal 0.09-1.40 [facility] ([place]) Comment on above: Performed By: #### C AION, MG, TROPI, PHOS, CMP, PBNP, GFR, TSH, CBC, DIFF, MORPH #### [place] [address] Basophils (Bld) [#/Vol] 0.00 10 3/mcL Normal 0.00-0.27 [facility] ([place]) Comment on above: Performed By: #### C AION, MG, TROPI, PHOS, CMP, PBNP, GFR, TSH, CBC, DIFF, MORPH #### [address] [address] Basophils/100 WBC (Bld) 0.6 % Normal 0.0-2.5 [facility] ([place]) Comment on above: Performed By: #### C AION, MG, TROPI, PHOS, CMP, PBNP, GFR, TSH, CBC, DIFF, MORPH #### [address] [address] Eosinophils (Bld) [#/Vol] 0.40 10 3/mcL Normal 0.00-0.65 [facility] ([place]) Comment on above: Performed By: #### C AION, MG, TROPI, PHOS, CMP, PBNP, GFR, TSH, CBC, DIFF, MORPH #### [address] [address] Eosinophils/100 WBC (Bld) 6.0 % Normal 0.0-6.0 [facility] ([place]) Comment on above: Performed By: #### C AION, MG, TROPI, PHOS, CMP, PBNP, GFR, TSH, CBC, DIFF, MORPH #### [address] [address] Lymphocytes (Bld) [#/Vol] 0.90 10 3/mcL Normal 0.90-4.32 [facility] ([place]) Comment on above: Performed By: #### C AION, MG, TROPI, PHOS, CMP, PBNP, GFR, TSH, CBC, DIFF, MORPH #### [address] [address] Lymphocytes/100 WBC (Bld) 13.9 % Low 20.0-40.0 [facility] ([place]) Comment on above: Performed By: #### C AION, MG, TROPI, PHOS, CMP, PBNP, GFR, TSH, CBC, DIFF, MORPH #### [address] [address] Monocytes/100 WBC (Bld) 9.1 % Normal 2.0-13.0 [facility] ([place]) Comment on above: Performed By: #### C AION, MG, TROPI, PHOS, CMP, PBNP, GFR, TSH, CBC, DIFF, MORPH #### [address] [address] Neutrophils/100 WBC (Bld) 70.4 % Normal 50.0-75.0 [facility] ([place]) Comment on above: Performed By: #### C AION, MG, TROPI, PHOS, CMP, PBNP, GFR, TSH, CBC, DIFF, MORPH #### [address] [address] .GFRon 02-21-2020 GFR Non- 47 ml/min/1.73sqm Normal [facility] ([place]) Comment on above: Result Comment: GFR Population mean for , Non- Americans Ages 20-29 = 116 mL/min/1.73 sq.m. Ages 30-39 = 107 mL/min/1.73 sq.m. Ages 40-49 = 99 mL/min/1.73 sq.m. Ages 50-59 = 93 mL/min/1.73 sq.m. Ages 60-69 = 85 mL/min/1.73 sq.m. Ages 70+ = 75 mL/min/1.73 sq.m. Chronic Kidney Disease: Less than 60 mL/min/1.73 square meters End Stage Renal Disease: Less than 15 mL/min/1.73 square meters Performed By: #### C AION, MG, TROPI, PHOS, CMP, PBNP, GFR, TSH, CBC, DIFF, MORPH #### [address] [address] GFR 57 ml/min/1.73sqm Normal [facility] ([place]) Comment on above: Result Comment: GFR Population mean for , Non- Americans Ages 20-29 = 116 mL/min/1.73 sq.m. Ages 30-39 = 107 mL/min/1.73 sq.m. Ages 40-49 = 99 mL/min/1.73 sq.m. Ages 50-59 = 93 mL/min/1.73 sq.m. Ages 60-69 = 85 mL/min/1.73 sq.m. Ages 70+ = 75 mL/min/1.73 sq.m. Chronic Kidney Disease: Less than 60 mL/min/1.73 square meters End Stage Renal Disease: Less than 15 mL/min/1.73 square meters Performed By: #### C AION, MG, TROPI, PHOS, CMP, PBNP, GFR, TSH, CBC, DIFF, MORPH #### [place] [address] .Morphon 02-21-2020 Anisocytosis Ql (Bld) Slight Normal [facility] ([place]) Comment on above: Performed By: #### C AION, MG, TROPI, PHOS, CMP, PBNP, GFR, TSH, CBC, DIFF, MORPH #### [address] [address] Hypochrom Slight Normal [facility] ([place]) Comment on above: Performed By: #### C AION, MG, TROPI, PHOS, CMP, PBNP, GFR, TSH, CBC, DIFF, MORPH #### [address] [address] Microcytosis Slight Normal [facility] ([place]) Comment on above: Performed By: #### C AION, MG, TROPI, PHOS, CMP, PBNP, GFR, TSH, CBC, DIFF, MORPH #### [place] [phone] Ovalocytes Few Normal [facility] ([place]) Comment on above: Performed By: #### C AION, MG, TROPI, PHOS, CMP, PBNP, GFR, TSH, CBC, DIFF, MORPH #### [place] [address] Platelets (Bld) [#/Vol] Normal Normal [facility] ([place]) Comment on above: Performed By: #### C AION, MG, TROPI, PHOS, CMP, PBNP, GFR, TSH, CBC, DIFF, MORPH #### [place] [address] Poik Slight Normal [facility] ([place]) Comment on above: Performed By: #### C AION, MG, TROPI, PHOS, CMP, PBNP, GFR, TSH, CBC, DIFF, MORPH #### [place] [address] Polychrom Slight Normal [facility] ([place]) Comment on above: Performed By: #### C AION, MG, TROPI, PHOS, CMP, PBNP, GFR, TSH, CBC, DIFF, MORPH #### [place] [address] .NEUABSon 02-21-2020 Neutrophils (Bld) [#/Vol] 4.60 10 3/mcL Normal 2.25-8.10 [facility] ([place]) Comment on above: Performed By: #### C AION, MG, TROPI, PHOS, CMP, PBNP, GFR, TSH, CBC, DIFF, MORPH #### [place] [address] BMPon 02-21-2020 Creatinine [Mass/Vol] 1.16 mg/dL Normal 0.50-1.20 [facility] ([place]) Comment on above: Performed By: #### C AION, MG, TROPI, PHOS, CMP, PBNP, GFR, TSH, CBC, DIFF, MORPH #### [facility] [address] [place], [place] [address] Urea nitrogen/Creatinine [Mass ratio] 15.5 ratio Normal 10.0-22.0 [facility] ([place]) Comment on above: Performed By: #### C AION, MG, TROPI, PHOS, CMP, PBNP, GFR, TSH, CBC, DIFF, MORPH #### [address] [address] Calcium [Mass/Vol] 8.0 mg/dL Low 8.4-10.1 [facility] ([place]) Comment on above: Performed By: #### C AION, MG, TROPI, PHOS, CMP, PBNP, GFR, TSH, CBC, DIFF, MORPH #### [address] [address] Chloride [Moles/Vol] 106 mmol/L Normal 98-110 [facility] ([place]) Comment on above: Performed By: #### C AION, MG, TROPI, PHOS, CMP, PBNP, GFR, TSH, CBC, DIFF, MORPH #### [address] [address] CO2 [Moles/Vol] 29 mmol/L Normal 22-32 [facility] ([place]) Comment on above: Performed By: #### C AION, MG, TROPI, PHOS, CMP, PBNP, GFR, TSH, CBC, DIFF, MORPH #### [address] [address] Electrolyte Balance 5.0 mEq/L Normal 4.0-15.0 [facility] ([place]) Comment on above: Performed By: #### C AION, MG, TROPI, PHOS, CMP, PBNP, GFR, TSH, CBC, DIFF, MORPH #### [address] [address] Glucose [Mass/Vol] 219 mg/dL High 82-115 [facility] ([place]) Comment on above: Performed By: #### C AION, MG, TROPI, PHOS, CMP, PBNP, GFR, TSH, CBC, DIFF, MORPH #### [address] [address] Potassium [Moles/Vol] 4.1 mmol/L Normal 3.5-5.0 [facility] ([place]) Comment on above: Performed By: #### C AION, MG, TROPI, PHOS, CMP, PBNP, GFR, TSH, CBC, DIFF, MORPH #### [place] [address] Sodium [Moles/Vol] 140 mmol/L Normal 136-145 [facility] ([place]) Comment on above: Performed By: #### C AION, MG, TROPI, PHOS, CMP, PBNP, GFR, TSH, CBC, DIFF, MORPH #### [place] [address] Urea nitrogen [Mass/Vol] 18.0 mg/dL Normal 8.0-22.0 [facility] ([place]) Comment on above: Performed By: #### C AION, MG, TROPI, PHOS, CMP, PBNP, GFR, TSH, CBC, DIFF, MORPH #### [place] [address] CBCon 02-21-2020 Erythrocyte distribution width (RBC) [Ratio] 18.6 % High 11.5-15.5 [facility] ([place]) Comment on above: Performed By: #### C AION, MG, TROPI, PHOS, CMP, PBNP, GFR, TSH, CBC, DIFF, MORPH #### [place] [address] Hematocrit (Bld) [Volume fraction] 22.6 % Low 34.0-46.0 [facility] ([place]) Comment on above: Performed By: #### C AION, MG, TROPI, PHOS, CMP, PBNP, GFR, TSH, CBC, DIFF, MORPH #### [place] [address] Hemoglobin (Bld) [Mass/Vol] 6.9 G/dL Critically abnormal 12.0-16.0 [facility] ([place]) Comment on above: Performed By: #### C AION, MG, TROPI, PHOS, CMP, PBNP, GFR, TSH, CBC, DIFF, MORPH #### [facility] [address] [place], [place] [address] MCH (RBC) [Entitic mass] 22.7 pg Low 27.0-33.0 [facility] ([place]) Comment on above: Performed By: #### C AION, MG, TROPI, PHOS, CMP, PBNP, GFR, TSH, CBC, DIFF, MORPH #### [address] [address] MCHC (RBC) [Mass/Vol] 30.5 G/dL Low 32.0-36.0 [facility] ([place]) Comment on above: Performed By: #### C AION, MG, TROPI, PHOS, CMP, PBNP, GFR, TSH, CBC, DIFF, MORPH #### [place] [address] MCV (RBC) [Entitic vol] 74.5 fL Low 80.0-99.0 [facility] ([place]) Comment on above: Performed By: #### C AION, MG, TROPI, PHOS, CMP, PBNP, GFR, TSH, CBC, DIFF, MORPH #### [place] [id number] Platelet mean volume (Bld) [Entitic vol] 6.2 fL Low 6.6-10.5 [facility] ([place]) Comment on above: Performed By: #### C AION, MG, TROPI, PHOS, CMP, PBNP, GFR, TSH, CBC, DIFF, MORPH #### [place] [id number] Platelets (Bld) [#/Vol] 397 10 3/mcL Normal 150-450 [facility] ([place]) Comment on above: Performed By: #### C AION, MG, TROPI, PHOS, CMP, PBNP, GFR, TSH, CBC, DIFF, MORPH #### [place] [phone] RBC (Bld) [#/Vol] 3.04 10 6/mcL Low 4.10-5.30 [facility] ([place]) Comment on above: Performed By: #### C AION, MG, TROPI, PHOS, CMP, PBNP, GFR, TSH, CBC, DIFF, MORPH #### [address] [address] WBC (Bld) [#/Vol] 6.60 10 3/mcL Normal 4.50-10.80 [facility] ([place]) Comment on above: Performed By: #### C AION, MG, TROPI, PHOS, CMP, PBNP, GFR, TSH, CBC, DIFF, MORPH #### [address] [address] FESon 02-21-2020 Iron [Mass/Vol] 41 ug/dL Normal 37-170 [facility] ([place]) Comment on above: Performed By: #### C AION, MG, TROPI, PHOS, CMP, PBNP, GFR, TSH, CBC, DIFF, MORPH #### [place] [address] Iron Sat 11 % Normal [facility] ([place]) Comment on above: Performed By: #### C AION, MG, TROPI, PHOS, CMP, PBNP, GFR, TSH, CBC, DIFF, MORPH #### [place] [address] TIBC 388 mcg/dL Normal 250-500 [facility] ([place]) Comment on above: Performed By: #### C AION, MG, TROPI, PHOS, CMP, PBNP, GFR, TSH, CBC, DIFF, MORPH #### [address] [address] HGBon 02-21-2020 Hemoglobin (Bld) [Mass/Vol] 6.8 G/dL Critically abnormal 12.0-16.0 [facility] ([place]) Comment on above: Performed By: #### C AION, MG, TROPI, PHOS, CMP, PBNP, GFR, TSH, CBC, DIFF, MORPH #### [place] [address] Hemoglobin (Bld) [Mass/Vol] 5.1 G/dL Critically abnormal 12.0-16.0 [facility] ([place]) Comment on above: Result Comment: Spec imen drawn while blood was still running at floor's insistence. Results may not be accurate. Performed By: #### C AION, MG, TROPI, PHOS, CMP, PBNP, GFR, TSH, CBC, DIFF, MORPH #### [address] [address] HHon 02-21-2020 Hematocrit (Bld) [Volume fraction] 27.8 % Low 34.0-46.0 [facility] ([place]) Comment on above: Performed By: #### C AION, MG, TROPI, PHOS, CMP, PBNP, GFR, TSH, CBC, DIFF, MORPH #### [place] [address] Hemoglobin (Bld) [Mass/Vol] 8.6 G/dL Low 12.0-16.0 [facility] ([place]) Comment on above: Performed By: #### C AION, MG, TROPI, PHOS, CMP, PBNP, GFR, TSH, CBC, DIFF, MORPH #### [place] [address] LIPIDon 02-21-2020 Cholesterol [Mass/Vol] 93 mg/dL Normal 50-199 [facility] ([place]) Comment on above: Result Comment: Chol esterol Reference Interval: Less than 200 Desirable 200-239 Borderline high risk 240 and above High risk Performed By: #### C AION, MG, TROPI, PHOS, CMP, PBNP, GFR, TSH, CBC, DIFF, MORPH #### [place] [address] Cholesterol in HDL [Mass/Vol] 39 mg/dL Low 40-59 [facility] ([place]) Comment on above: Result Comment: HDL Reference Interval: Less than 40 Low - high risk 60 or above Optimal/lowers risk Performed By: #### C AION, MG, TROPI, PHOS, CMP, PBNP, GFR, TSH, CBC, DIFF, MORPH #### [place] [id number] Cholesterol in LDL [Mass/Vol] 27 mg/dL Normal 0-129 [facility] ([place]) Comment on above: Result Comment: LDL is a calculated result and requires a 12-hr fast. LDL Reference Interval: Less than 100 Optimal 100-129 Near or above optimal 130-159 Borderline high risk 160-189 High risk 190 and above Very high risk Performed By: #### C AION, MG, TROPI, PHOS, CMP, PBNP, GFR, TSH, CBC, DIFF, MORPH #### [address] [address] Triglyceride [Mass/Vol] 135 mg/dL Normal 3-149 [facility] ([place]) Comment on above: Result Comment: Trig lyceride Reference Interval: Less than 150 Normal 150-199 Borderline high risk 200-499 High risk 500 or higher Very high risk Performed By: #### C AION, MG, TROPI, PHOS, CMP, PBNP, GFR, TSH, CBC, DIFF, MORPH #### [address] [address] MGon 02-21-2020 Magnesium [Mass/Vol] 1.9 mg/dL Normal 1.6-2.4 [facility] ([place]) Comment on above: Performed By: #### C AION, MG, TROPI, PHOS, CMP, PBNP, GFR, TSH, CBC, DIFF, MORPH #### [address] [address] RBC (Product)on 02-21-2020 RBC (Bld) [#/Vol] RBC Ready for Pickup Normal [facility] ([place]) Comment on above: Performed By: #### C AION, MG, TROPI, PHOS, CMP, PBNP, GFR, TSH, CBC, DIFF, MORPH #### [address] [address] .GFRon 02-20-2020 GFR Non- 56 ml/min/1.73sqm Normal [facility] ([place]) Comment on above: Result Comment: GFR Population mean for , Non- Americans Ages 20-29 = 116 mL/min/1.73 sq.m. Ages 30-39 = 107 mL/min/1.73 sq.m. Ages 40-49 = 99 mL/min/1.73 sq.m. Ages 50-59 = 93 mL/min/1.73 sq.m. Ages 60-69 = 85 mL/min/1.73 sq.m. Ages 70+ = 75 mL/min/1.73 sq.m. Chronic Kidney Disease: Less than 60 mL/min/1.73 square meters End Stage Renal Disease: Less than 15 mL/min/1.73 square meters Performed By: #### C AION, MG, TROPI, PHOS, CMP, PBNP, GFR, TSH, CBC, DIFF, MORPH #### [address] [address] GFR >60 Normal [facility] ([place]) Comment on above: Result Comment: GFR Population mean for , Non- Americans Ages 20-29 = 116 mL/min/1.73 sq.m. Ages 30-39 = 107 mL/min/1.73 sq.m. Ages 40-49 = 99 mL/min/1.73 sq.m. Ages 50-59 = 93 mL/min/1.73 sq.m. Ages 60-69 = 85 mL/min/1.73 sq.m. Ages 70+ = 75 mL/min/1.73 sq.m. Chronic Kidney Disease: Less than 60 mL/min/1.73 square meters End Stage Renal Disease: Less than 15 mL/min/1.73 square meters Performed By: #### C AION, MG, TROPI, PHOS, CMP, PBNP, GFR, TSH, CBC, DIFF, MORPH #### [address] [address] .Manual Diffon 02-20-2020 Basophil %, Manual 0.0 % Normal 0.0-2.5 [facility] ([place]) Comment on above: Performed By: #### C AION, MG, TROPI, PHOS, CMP, PBNP, GFR, TSH, CBC, DIFF, MORPH #### [address] [address] Basophil, Abs Manual 0.00 10 3/mcL Normal 0.00-0.27 [facility] ([place]) Comment on above: Performed By: #### C AION, MG, TROPI, PHOS, CMP, PBNP, GFR, TSH, CBC, DIFF, MORPH #### [address] [address] Cells Counted 100 Normal [facility] ([place]) Comment on above: Performed By: #### C AION, MG, TROPI, PHOS, CMP, PBNP, GFR, TSH, CBC, DIFF, MORPH #### [address] [address] Eosinophil %, Manual 3.0 % Normal 0.0-6.0 [facility] ([place]) Comment on above: Performed By: #### C AION, MG, TROPI, PHOS, CMP, PBNP, GFR, TSH, CBC, DIFF, MORPH #### [address] [address] Eosinophil, Abs Manual 0.22 10 3/mcL Normal 0.00-0.65 [facility] ([place]) Comment on above: Performed By: #### C AION, MG, TROPI, PHOS, CMP, PBNP, GFR, TSH, CBC, DIFF, MORPH #### [address] [address] Lymphocyte %, Manual 14.0 % Low 20.0-40.0 [facility] ([place]) Comment on above: Performed By: #### C AION, MG, TROPI, PHOS, CMP, PBNP, GFR, TSH, CBC, DIFF, MORPH #### [address] [address] Lymphocyte, Abs Manual 1.02 10 3/mcL Normal 0.90-4.32 [facility] ([place]) Comment on above: Performed By: #### C AION, MG, TROPI, PHOS, CMP, PBNP, GFR, TSH, CBC, DIFF, MORPH #### [address] [address] Monocyte %, Manual 8.0 % Normal 2.0-13.0 [facility] ([place]) Comment on above: Performed By: #### C AION, MG, TROPI, PHOS, CMP, PBNP, GFR, TSH, CBC, DIFF, MORPH #### [address] [address] Monocyte, Abs Manual 0.58 10 3/mcL Normal 0.09-1.40 [facility] ([place]) Comment on above: Performed By: #### C AION, MG, TROPI, PHOS, CMP, PBNP, GFR, TSH, CBC, DIFF, MORPH #### [place] [id number] Myelocyte 1.0 % Normal [facility] ([place]) Comment on above: Performed By: #### C AION, MG, TROPI, PHOS, CMP, PBNP, GFR, TSH, CBC, DIFF, MORPH #### [place] [id number] Neutrophil %, Manual 74.0 % Normal 50.0-75.0 [facility] ([place]) Comment on above: Performed By: #### C AION, MG, TROPI, PHOS, CMP, PBNP, GFR, TSH, CBC, DIFF, MORPH #### [place] [id number] Neutrophil, Abs Manual 5.62 10 3/mcL Normal 2.25-8.10 [facility] ([place]) Comment on above: Performed By: #### C AION, MG, TROPI, PHOS, CMP, PBNP, GFR, TSH, CBC, DIFF, MORPH #### [place] [id number] Nucleated RBC (Bld) [#/Vol] 1.0 /100 WBC Normal [facility] ([place]) Comment on above: Performed By: #### C AION, MG, TROPI, PHOS, CMP, PBNP, GFR, TSH, CBC, DIFF, MORPH #### [place] [id number] .Morphon 02-20-2020 Anisocytosis Ql (Bld) Slight Normal [facility] ([place]) Comment on above: Performed By: #### C AION, MG, TROPI, PHOS, CMP, PBNP, GFR, TSH, CBC, DIFF, MORPH #### [place] [id number] Hypochrom Moderate Normal [facility] ([place]) Comment on above: Performed By: #### C AION, MG, TROPI, PHOS, CMP, PBNP, GFR, TSH, CBC, DIFF, MORPH #### [address] [address] Microcytosis Moderate Normal [facility] ([place]) Comment on above: Performed By: #### C AION, MG, TROPI, PHOS, CMP, PBNP, GFR, TSH, CBC, DIFF, MORPH #### [address] [address] Ovalocytes Few Normal [facility] ([place]) Comment on above: Performed By: #### C AION, MG, TROPI, PHOS, CMP, PBNP, GFR, TSH, CBC, DIFF, MORPH #### [address] [address] Platelets (Bld) [#/Vol] Normal Normal [facility] ([place]) Comment on above: Performed By: #### C AION, MG, TROPI, PHOS, CMP, PBNP, GFR, TSH, CBC, DIFF, MORPH #### [place] [id number] Polychrom Slight Normal [facility] ([place]) Comment on above: Performed By: #### C AION, MG, TROPI, PHOS, CMP, PBNP, GFR, TSH, CBC, DIFF, MORPH #### [place] [address] B12on 02-20-2020 Cobalamin (Vitamin B12) [Mass/Vol] 613 pg/mL Normal 211-911 [facility] ([place]) Comment on above: Performed By: #### C AION, MG, TROPI, PHOS, CMP, PBNP, GFR, TSH, CBC, DIFF, MORPH #### [place] [address] CAIONon 02-20-2020 Calcium Ionized 1.10 mmol/L Low 1.12-1.32 [facility] ([place]) Comment on above: Performed By: #### C AION, MG, TROPI, PHOS, CMP, PBNP, GFR, TSH, CBC, DIFF, MORPH #### [place] [address] CBCon 02-20-2020 Erythrocyte distribution width (RBC) [Ratio] 18.0 % High 11.5-15.5 [facility] ([place]) Comment on above: Performed By: #### C AION, MG, TROPI, PHOS, CMP, PBNP, GFR, TSH, CBC, DIFF, MORPH #### [place] [address] Hematocrit (Bld) [Volume fraction] 18.1 % Low 34.0-46.0 [facility] ([place]) Comment on above: Performed By: #### C AION, MG, TROPI, PHOS, CMP, PBNP, GFR, TSH, CBC, DIFF, MORPH #### [place] [address] Hemoglobin (Bld) [Mass/Vol] 5.3 G/dL Critically abnormal 12.0-16.0 [facility] ([place]) Comment on above: Performed By: #### C AION, MG, TROPI, PHOS, CMP, PBNP, GFR, TSH, CBC, DIFF, MORPH #### [place] [address] MCH (RBC) [Entitic mass] 21.2 pg Low 27.0-33.0 [facility] ([place]) Comment on above: Performed By: #### C AION, MG, TROPI, PHOS, CMP, PBNP, GFR, TSH, CBC, DIFF, MORPH #### [place] [address] MCHC (RBC) [Mass/Vol] 29.2 G/dL Low 32.0-36.0 [facility] ([place]) Comment on above: Performed By: #### C AION, MG, TROPI, PHOS, CMP, PBNP, GFR, TSH, CBC, DIFF, MORPH #### [place] [address] MCV (RBC) [Entitic vol] 72.6 fL Low 80.0-99.0 [facility] ([place]) Comment on above: Performed By: #### C AION, MG, TROPI, PHOS, CMP, PBNP, GFR, TSH, CBC, DIFF, MORPH #### [facility] [address] [place], [place] [address] Platelet mean volume (Bld) [Entitic vol] 6.5 fL Low 6.6-10.5 [facility] ([place]) Comment on above: Performed By: #### C AION, MG, TROPI, PHOS, CMP, PBNP, GFR, TSH, CBC, DIFF, MORPH #### [address] [address] Platelets (Bld) [#/Vol] 432 10 3/mcL Normal 150-450 [facility] ([place]) Comment on above: Performed By: #### C AION, MG, TROPI, PHOS, CMP, PBNP, GFR, TSH, CBC, DIFF, MORPH #### [place] [address] RBC (Bld) [#/Vol] 2.49 10 6/mcL Low 4.10-5.30 [facility] ([place]) Comment on above: Performed By: #### C AION, MG, TROPI, PHOS, CMP, PBNP, GFR, TSH, CBC, DIFF, MORPH #### [place] [id number] WBC (Bld) [#/Vol] 7.30 10 3/mcL Normal 4.50-10.80 [facility] ([place]) Comment on above: Performed By: #### C AION, MG, TROPI, PHOS, CMP, PBNP, GFR, TSH, CBC, DIFF, MORPH #### [place] [address] CMPon 02-20-2020 Albumin/Globulin [Mass ratio] 0.8 {ratio} Low 0.9-1.6 [facility] ([place]) Comment on above: Performed By: #### C AION, MG, TROPI, PHOS, CMP, PBNP, GFR, TSH, CBC, DIFF, MORPH #### [place] [address] ALP [Catalytic activity/Vol] 69 U/L Normal 38-126 [facility] ([place]) Comment on above: Performed By: #### C AION, MG, TROPI, PHOS, CMP, PBNP, GFR, TSH, CBC, DIFF, MORPH #### [address] [address] ALT [Catalytic activity/Vol] 18 U/L Normal 10-49 [facility] ([place]) Comment on above: Performed By: #### C AION, MG, TROPI, PHOS, CMP, PBNP, GFR, TSH, CBC, DIFF, MORPH #### [address] [address] AST [Catalytic activity/Vol] 17 U/L Normal 8-34 [facility] ([place]) Comment on above: Performed By: #### C AION, MG, TROPI, PHOS, CMP, PBNP, GFR, TSH, CBC, DIFF, MORPH #### [address] [address] Bili Total 0.5 mg/dL Normal 0.2-1.2 [facility] ([place]) Comment on above: Result Comment: Use of this assay is not recommended for patients undergoing treatment with eltrombopag due to the potential for falsely elevated results. Performed By: #### C AION, MG, TROPI, PHOS, CMP, PBNP, GFR, TSH, CBC, DIFF, MORPH #### [address] [address] Creatinine [Mass/Vol] 1.00 mg/dL Normal 0.50-1.20 [facility] ([place]) Comment on above: Performed By: #### C AION, MG, TROPI, PHOS, CMP, PBNP, GFR, TSH, CBC, DIFF, MORPH #### [address] [address] Globulin (S) [Mass/Vol] 3.8 G/dL Normal 1.5-3.8 [facility] ([place]) Comment on above: Performed By: #### C AION, MG, TROPI, PHOS, CMP, PBNP, GFR, TSH, CBC, DIFF, MORPH #### [address] [address] Protein [Mass/Vol] 6.7 G/dL Normal 6.0-8.5 [facility] ([place]) Comment on above: Performed By: #### C AION, MG, TROPI, PHOS, CMP, PBNP, GFR, TSH, CBC, DIFF, MORPH #### [address] [address] Urea nitrogen/Creatinine [Mass ratio] 15.0 ratio Normal 10.0-22.0 [facility] ([place]) Comment on above: Performed By: #### C AION, MG, TROPI, PHOS, CMP, PBNP, GFR, TSH, CBC, DIFF, MORPH #### [address] [address] Albumin [Mass/Vol] 2.9 G/dL Low 3.2-4.8 [facility] ([place] Comment on above: Performed By: #### C AION, MG, TROPI, PHOS, CMP, PBNP, GFR, TSH, CBC, DIFF, MORPH #### [address] [address] Calcium [Mass/Vol] 8.4 mg/dL Normal 8.4-10.1 [facility] ([place] Comment on above: Performed By: #### C AION, MG, TROPI, PHOS, CMP, PBNP, GFR, TSH, CBC, DIFF, MORPH #### [address] [address] Chloride [Moles/Vol] 108 mmol/L Normal 98-110 [facility] ([place]) Comment on above: Performed By: #### C AION, MG, TROPI, PHOS, CMP, PBNP, GFR, TSH, CBC, DIFF, MORPH #### [address] [address] CO2 [Moles/Vol] 26 mmol/L Normal 22-32 [facility] ([place] Comment on above: Performed By: #### C AION, MG, TROPI, PHOS, CMP, PBNP, GFR, TSH, CBC, DIFF, MORPH #### [address] [address] Electrolyte Balance 7.0 mEq/L Normal 4.0-15.0 [facility] ([place]) Comment on above: Performed By: #### C AION, MG, TROPI, PHOS, CMP, PBNP, GFR, TSH, CBC, DIFF, MORPH #### [address] [address] Glucose [Mass/Vol] 110 mg/dL Normal 82-115 [facility] ([place] Comment on above: Performed By: #### C AION, MG, TROPI, PHOS, CMP, PBNP, GFR, TSH, CBC, DIFF, MORPH #### [address] [address] Potassium [Moles/Vol] 4.2 mmol/L Normal 3.5-5.0 [facility] ([place]) Comment on above: Performed By: #### C AION, MG, TROPI, PHOS, CMP, PBNP, GFR, TSH, CBC, DIFF, MORPH #### [address] [address] Sodium [Moles/Vol] 141 mmol/L Normal 136-145 [facility] ([place] Comment on above: Performed By: #### C AION, MG, TROPI, PHOS, CMP, PBNP, GFR, TSH, CBC, DIFF, MORPH #### [address] [address] Urea nitrogen [Mass/Vol] 15.0 mg/dL Normal 8.0-22.0 [facility] ([place] Comment on above: Performed By: #### C AION, MG, TROPI, PHOS, CMP, PBNP, GFR, TSH, CBC, DIFF, MORPH #### [address] [address] Cristhian 02-20-2020 Ferritin [Mass/Vol] 6 ng/mL Low 8-252 [facility] ([place]) Comment on above: Performed By: #### C AION, MG, TROPI, PHOS, CMP, PBNP, GFR, TSH, CBC, DIFF, MORPH #### [address] [address] FESon 02-20-2020 Iron Sat 2 % Normal [facility] ([place]) Comment on above: Performed By: #### C AION, MG, TROPI, PHOS, CMP, PBNP, GFR, TSH, CBC, DIFF, MORPH #### [place] [id number] TIBC 430 mcg/dL Normal 250-500 [facility] ([place]) Comment on above: Performed By: #### C AION, MG, TROPI, PHOS, CMP, PBNP, GFR, TSH, CBC, DIFF, MORPH #### [place] [address] Iron [Mass/Vol] 10 ug/dL Low 37-170 [facility] ([place] Comment on above: Performed By: #### C AION, MG, TROPI, PHOS, CMP, PBNP, GFR, TSH, CBC, DIFF, MORPH #### [place] [address] FOLon 02-20-2020 Folate 12.4 ng/mL Normal 1.1-20.0 [facility] ([place] Comment on above: Performed By: #### C AION, MG, TROPI, PHOS, CMP, PBNP, GFR, TSH, CBC, DIFF, MORPH #### [place] [address] HHon 02-20-2020 Hematocrit (Bld) [Volume fraction] 19.0 % Low 34.0-46.0 [facility] ([place] Comment on above: Performed By: #### C AION, MG, TROPI, PHOS, CMP, PBNP, GFR, TSH, CBC, DIFF, MORPH #### [place] [address] Hemoglobin (Bld) [Mass/Vol] 5.6 G/dL Critically abnormal 12.0-16.0 [facility] ([place] Comment on above: Performed By: #### C AION, MG, TROPI, PHOS, CMP, PBNP, GFR, TSH, CBC, DIFF, MORPH #### [place] [address] MGon 02-20-2020 Magnesium [Mass/Vol] 2.0 mg/dL Normal 1.6-2.4 [facility] ([place]) Comment on above: Performed By: #### C AION, MG, TROPI, PHOS, CMP, PBNP, GFR, TSH, CBC, DIFF, MORPH #### [address] [address] PBNPon 02-20-2020 Natriuretic peptide B (Bld) [Mass/Vol] 1799 pg/mL High 0-900 [facility] ([place]) Comment on above: Result Comment: NT-p roBNP results of less than 300 pg/mL effectively rules out acute congestive heart failure with 99% negative predictive value. Performed By: #### C AION, MG, TROPI, PHOS, CMP, PBNP, GFR, TSH, CBC, DIFF, MORPH #### [place] [address] PHOSon 02-20-2020 Phosphate [Mass/Vol] 2.8 mg/dL Normal 2.5-4.5 [facility] ([place]) Comment on above: Performed By: #### C AION, MG, TROPI, PHOS, CMP, PBNP, GFR, TSH, CBC, DIFF, MORPH #### [address] [address] RBC (Product)on 02-20-2020 RBC (Bld) [#/Vol] RBC Ready for Pickup Normal [facility] ([place]) Comment on above: Performed By: #### C AION, MG, TROPI, PHOS, CMP, PBNP, GFR, TSH, CBC, DIFF, MORPH #### [place] [address] TABOon 02-20-2020 ABO/Rh Interp Positive [facility] ([place] Comment on above: Performed By: #### C AION, MG, TROPI, PHOS, CMP, PBNP, GFR, TSH, CBC, DIFF, MORPH #### [place] [address] TABSon 02-20-2020 Antibody Screen Tango Negative Normal [facility] ([place]) Comment on above: Performed By: #### C AION, MG, TROPI, PHOS, CMP, PBNP, GFR, TSH, CBC, DIFF, MORPH #### [place] [id number] TROPIon 02-20-2020 Troponin I.cardiac [Mass/Vol] ng/mL Normal 0.000-0.040 [facility] ([place]) Comment on above: Result Comment: Trop onin I reference ranges (07/06/14): 0.00-0.040 ng/mL Negative and non-diagnostic. >0.040 ng/mL Consistent with cardiac damage, increased clinical risk and possibility of myocardial infarction. Serial measurements, a rise & fall in test results, clinical history, appropriate symptoms and/or ECG changes may help assess possibility of [place]. *Other non-acute coronary syndrome conditions such as CHF, myocarditis, pulmonary emboli, sepsis and cardiac surgery could result in myocardial damage and increased troponin levels. Performed By: #### C AION, MG, TROPI, PHOS, CMP, PBNP, GFR, TSH, CBC, DIFF, MORPH #### [place] [address] TSHon 02-20-2020 TSH Qn 1.870 mcIU/mL Normal 0.360-3.740 [facility] ([place]) Comment on above: Performed By: #### C AION, MG, TROPI, PHOS, CMP, PBNP, GFR, TSH, CBC, DIFF, MORPH #### [place] [address] UAon 02-20-2020 Color (U) Dark Yellow Normal [facility] ([place] Comment on above: Performed By: #### C AION, MG, TROPI, PHOS, CMP, PBNP, GFR, TSH, CBC, DIFF, MORPH #### [place] [address] Glucose (U) [Mass/Vol] Negative Normal Negative [facility] ([place]) Comment on above: Performed By: #### C AION, MG, TROPI, PHOS, CMP, PBNP, GFR, TSH, CBC, DIFF, MORPH #### [place] [id number] Ketones Ql (U) Trace Normal Neg-Trace [facility] ([place]) Comment on above: Performed By: #### C AION, MG, TROPI, PHOS, CMP, PBNP, GFR, TSH, CBC, DIFF, MORPH #### [address] [address] UA Appear Clear Normal Clear [facility] ([place]) Comment on above: Performed By: #### C AION, MG, TROPI, PHOS, CMP, PBNP, GFR, TSH, CBC, DIFF, MORPH #### [address] [address] UA Blood Negative Normal Neg-Trace [facility] ([place] Comment on above: Performed By: #### C AION, MG, TROPI, PHOS, CMP, PBNP, GFR, TSH, CBC, DIFF, MORPH #### [place] [id number] UA Leuk Est Small Abnormal Negative [facility] ([place]) Comment on above: Performed By: #### C AION, MG, TROPI, PHOS, CMP, PBNP, GFR, TSH, CBC, DIFF, MORPH #### [place] [address] UA Nitrite Positive Abnormal Negative [facility] ([place] Comment on above: Performed By: #### C AION, MG, TROPI, PHOS, CMP, PBNP, GFR, TSH, CBC, DIFF, MORPH #### [place] [address] UA pH 5.0 Normal 5.0 - 8.0 [facility] ([place] Comment on above: Performed By: #### C AION, MG, TROPI, PHOS, CMP, PBNP, GFR, TSH, CBC, DIFF, MORPH #### [place] [address] UA Protein Trace Normal Negative [facility] ([place] Comment on above: Performed By: #### C AION, MG, TROPI, PHOS, CMP, PBNP, GFR, TSH, CBC, DIFF, MORPH #### [place] [address] UA Spec Grav 1.025 Normal 1.006-1.029 [facility] ([place] Comment on above: Performed By: #### C AION, MG, TROPI, PHOS, CMP, PBNP, GFR, TSH, CBC, DIFF, MORPH #### [address] [address] UA Specimen Type Clean Catch Normal [facility] ([place]) Comment on above: Performed By: #### C AION, MG, TROPI, PHOS, CMP, PBNP, GFR, TSH, CBC, DIFF, MORPH #### [place] [address] UA Urobilinogen 1.0 E.U./dL Normal 0.2-1.0 [facility] ([place] Comment on above: Performed By: #### C AION, MG, TROPI, PHOS, CMP, PBNP, GFR, TSH, CBC, DIFF, MORPH #### [place] [address] Urobilinogen Qn (U) Negative Normal Neg-Trace [facility] ([place] Comment on above: Performed By: #### C AION, MG, TROPI, PHOS, CMP, PBNP, GFR, TSH, CBC, DIFF, MORPH #### [place] [address] UAMICon 02-20-2020 RBC (U) [#/Vol] Negative Normal 0-2 [facility] ([place] Comment on above: Performed By: #### C AION, MG, TROPI, PHOS, CMP, PBNP, GFR, TSH, CBC, DIFF, MORPH #### [place] [address] UA Bacteria 3+ /hpf Abnormal Negative [facility] ([place]) Comment on above: Performed By: #### C AION, MG, TROPI, PHOS, CMP, PBNP, GFR, TSH, CBC, DIFF, MORPH #### [place] [address] UA Squam Epithelial 3-5 Normal 0-20 [facility] ([place] Comment on above: Performed By: #### C AION, MG, TROPI, PHOS, CMP, PBNP, GFR, TSH, CBC, DIFF, MORPH #### [place] [address] UA WBC 10-20 Abnormal 0-5 [facility] ([place]) Comment on above: Performed By: #### C AION, MG, TROPI, PHOS, CMP, PBNP, GFR, TSH, CBC, DIFF, MORPH #### [facility] [address] [place] [address] XR CHEST 1 VIEWon 02-20-2020 XR CHEST 1 VIEW ORIGINAL XR CHEST 1 VIEW 1:24 PM 02/20/2020 CLINICAL STATEMENT: Chest Pain. COMPARISON: 07/30/2018 FINDINGS: The heart is normal in size or slightly prominent, without vascular congestion. The lungs are clear and there is no pleural fluid seen. Minor degenerative changes are noted in the spine and at the shoulders. IMPRESSION: No acute process. Interpreted By: Mina Zelaya MD Preliminary Report By: Mina Zelaya MD Electronically Signed By: Mina Zelaya MD Dictated Date: 02/20/2020 1:36:36 PM Prelim Date: 02/20/2020 1:36:36 PM Sign Date: 02/20/2020 1:37:01 PM Ordering Provider:Oscar Bee [facility] ([place]) CBC W/DIFFon 12-30-2019 BASO ABS 0.00 K/CU MM Normal 0-0.2 [facility] Comment on above: Performed By: #### L 550.50404, L200.26432 #### [facility] [address] [place], [place] [id number] Basophils/100 WBC (Bld) 0.5 % Normal 0-2 [facility] Comment on above: Performed By: #### L 550.33898, L200.61273 #### [facility] [address] [place] [address] EOS ABS 0.30 K/CU MM Normal 0-0.5 [facility] Comment on above: Performed By: #### L 550.81958, L200.47240 #### [facility] [address] [place] [address] Eosinophils/100 WBC (Bld) 3.5 % Normal 0-5 [facility] Comment on above: Performed By: #### L 550.87756, L200.86550 #### [facility] [address] [place] [address] Erythrocyte distribution width (RBC) [Ratio] 15.1 % High 11-14.5 [facility] Comment on above: Performed By: #### L 550.72270, L200.84979 #### [facility] [address] [place] [address] Hematocrit (Bld) [Volume fraction] 33.0 % Low 35.0-47.0 [facility] Comment on above: Performed By: #### L 550.29586, L200.30990 #### [facility] [address] [place] [address] Hemoglobin (Bld) [Mass/Vol] 9.6 g/dL Low 11.5-15.5 [facility] Comment on above: Performed By: #### L 550.86655, L200.00469 #### [facility] [address] [place] [address] IMMATR GRAN ABS 0.10 K/CU MM Normal Less than 2 [facility] Comment on above: Performed By: #### L 550.78601, L200.08735 #### [facility] [address] [place] [address] IMMATURE GRAN % 0.8 % Normal Less than 2 [facility] Comment on above: Performed By: #### L 550.79251, L200.00849 #### [facility] [address] [place] [address] Lymphocytes (Bld) [#/Vol] 1.60 K/CU MM Normal 0.9-4.4 [facility] Comment on above: Performed By: #### L 550.85960, L200.66147 #### [facility] [address] [place] [address] Lymphocytes/100 WBC (Bld) 21.2 % Normal 20-40 [facility] Comment on above: Performed By: #### L 550.35468, L200.43861 #### [facility] [address] [place] [address] MCHC (RBC) [Mass/Vol] 29.1 g/dL Low 32.0-36.0 [facility] Comment on above: Performed By: #### L 550.88148, L200.91148 #### [facility] [address] [place] [address] MCV (RBC) [Entitic vol] 87.3 fL Normal 80.0-99.0 [facility] Comment on above: Performed By: #### L 550.35343, L200.94952 #### [facility] [address] [place] [address] MONO ABS 0.60 K/CU MM Normal 0.1-1.1 [facility] Comment on above: Performed By: #### L 550.76601, L200.20525 #### [facility] [address] [place] [address] Monocytes/100 WBC (Bld) 8.3 % Normal 2-10 [facility] Comment on above: Performed By: #### L 550.39739, L200.34211 #### [facility] [address] [place] [address] NEUTROPHIL ABS 4.90 K/CU MM Normal 2.0-8.3 [facility] Comment on above: Performed By: #### L 550.06817, L200.64348 #### [facility] [address] [place] [address] Neutrophils/100 WBC (Bld) 65.7 % Normal 45-75 [facility] Comment on above: Performed By: #### L 550.08596, L200.31827 #### [facility] [address] [place], [place] [id number] Nucleated RBC/100 WBC (Bld) [Ratio] 0.0 % Normal Less than 1 [facility] Comment on above: Performed By: #### L 550.82624, L200.14561 #### [facility] [address] [place] [address] Platelet mean volume (Bld) [Entitic vol] 8.9 fL Low 9.4-12.4 [facility] Comment on above: Performed By: #### L 550.88085, L200.32904 #### [facility] [address] [place] [address] Platelets (Bld) [#/Vol] 343 K/CU MM Normal 150-450 [facility] Comment on above: Performed By: #### L 550.21335, L200.78092 #### [facility] [address] [place] [address] RBC (Bld) [#/Vol] 3.78 M/CU MM Low 3.90-5.30 [facility] Comment on above: Performed By: #### L 550.21801, L200.45241 #### [facility] [address] [place], [place] [id number] WBC (Bld) [#/Vol] 7.5 K/CUMM Normal 4.5-11.0 [facility] Comment on above: Performed By: #### L 550.00175, L200.71111 #### [facility] [address] [place] [address] CMPon 12-30-2019 Albumin [Mass/Vol] 3.3 g/dL Normal 3.2-5.0 [facility] Comment on above: Performed By: #### L 550.62596, L500.82534, L500.66709, L500.80039 #### [facility] [place] [id number] Albumin/Globulin [Mass ratio] 0.9 {ratio} Normal 0.8-2.0 [facility] Comment on above: Performed By: #### L 550.72961, L500.36540, L500.29012, L500.50079 #### [facility] [address] [place] [address] ALK PHOS 84 U/L Normal 45-117 [facility] Comment on above: Performed By: #### L 550.45351, L500.10837, L500.14376, L500.38390 #### [facility] [address] [place] [address] ALT [Catalytic activity/Vol] 20 U/L Normal 13-61 [facility] Comment on above: Result Comment: RESU LTS MAY BE FALSELY DEPRESSED AFTER THE ADMINISTRATION OF SULFASALAZINE AND/OR SULFAPYRIDINE. Performed By: #### L 550.20730, L500.94534, L500.61269, L500.73967 #### [facility] [address] [place] [address] Anion gap [Moles/Vol] 9 mmol/L Normal 5-16 [facility] Comment on above: Performed By: #### L 550.67763, L500.22816, L500.23145, L500.23595 #### [facility] [address] [place], [place] [address] BILI TOTAL 0.4 MG/DL Normal 0.2-1.0 [facility] Comment on above: Performed By: #### L 550.68629, L500.38879, L500.18151, L500.09269 #### [facility] [address] [place], [place] [address] Calcium [Mass/Vol] 8.9 mg/dL Normal 8.5-10.1 [facility] Comment on above: Performed By: #### L 550.14494, L500.31020, L500.76742, L500.39622 #### [facility] [place] [address] Chloride [Moles/Vol] 104 mmol/L Normal 98-107 [facility] Comment on above: Performed By: #### L 550.95688, L500.85462, L500.65585, L500.98798 #### [facility] [address] [place] [address] CO2 [Moles/Vol] 24 mmol/L Normal 21-32 [facility] Comment on above: Performed By: #### L 550.79199, L500.37083, L500.62090, L500.62801 #### [facility] [address] [place] [address] Creatinine [Mass/Vol] 0.961 mg/dL High 0.510-0.950 [facility] Comment on above: Result Comment: Brendon ents receiving either N-Acetylcysteine (NAC) or Metamizole prior to venipuncture, may have falsely depressed results. Performed By: #### L 550.52646, L500.48486, L500.81102, L500.50854 #### [facility] [address] [place] [address] Globulin (S) [Mass/Vol] 3.7 g/dL Normal 2.2-4.2 [facility] Comment on above: Performed By: #### L 550.47591, L500.38796, L500.29926, L500.69724 #### [facility] [address] [place] [address]17 Glucose [Mass/Vol] 305 mg/dL High 70-100 [facility] Comment on above: Result Comment: 70-1 00- Normal Fasting; 100-125 Impaired Fasting; greater than 126 on more than one result- Diabetes. ADA guidelines. Results may be falsely elevated after the administration of Sulfapyridine. Results may be falsely depressed after the administration of Sulfasalazine. Performed By: #### L 550.30157, L500.02321, L500.76877, L500.79523 #### [facility] [address] [place] [address] Potassium [Moles/Vol] 4.8 mmol/L Normal 3.5-5.1 [facility] Comment on above: Performed By: #### L 550.50012, L500.40137, L500.24462, L500.65240 #### [facility] [address] [place] [address] Protein [Mass/Vol] 7.0 g/dL Normal 6.0-8.5 [facility] Comment on above: Performed By: #### L 550.79328, L500.90014, L500.01539, L500.25131 #### [facility] [address] [place] [address] 11874 SGOT (AST) 12 U/L Normal 8-34 [facility] Comment on above: Result Comment: RESU LTS MAY BE FALSELY DEPRESSED AFTER THE ADMINISTRATION OF SULFASALAZINE AND/OR SULFAPYRIDINE. Performed By: #### L 550.94036, L500.61586, L500.44925, L500.71288 #### [facility] [address] [place] [address] 16273 Sodium [Moles/Vol] 137 mmol/L Normal 136-145 [facility] Comment on above: Performed By: #### L 550.41249, L500.81728, L500.70446, L500.98805 #### [facility] [address] [place] [address] 21018 Urea nitrogen [Mass/Vol] 20 mg/dL Normal 7-26 [facility] Comment on above: Performed By: #### L 550.07543, L500.05142, L500.31475, L500.03233 #### [facility] [address] [place], [place] [address] Urea nitrogen/Creatinine [Mass ratio] 21 mg/mg Normal 15-24 [facility] Comment on above: Performed By: #### L 550.36289, L500.11169, L500.11530, L500.24692 #### [facility] [address] [place] [address] GFR ESTon 12-30-2019 IF AMER Greater than 60 Normal [facility] Comment on above: Performed By: #### L 550.04208, L500.03322, L500.00734, L500.19877 #### [facility] [address] [place] [address] IF non-AFR AMER 59 ML/MIN Normal [facility] Comment on above: Performed By: #### L 550.37919, L500.54390, L500.60793, L500.88131 #### [facility] [address] [place], [place] [address] HGB A1C GLYCOHBon 12-30-2019 HbA1c (Bld) [Mass fraction] 7.6 % High 4.3-6.0 [facility] Comment on above: Performed By: #### L 550.21625, L200.94312 #### [facility] [address] [place], [place] [address] LIPIDon 12-30-2019 Cholesterol [Mass/Vol] 190 mg/dL Normal 0-199 [facility] Comment on above: Performed By: #### L 500.96724, L500.48699, L500.55287, L500.72664, L500.71992 #### [facility] [address] [place], [place] [address] Cholesterol in HDL [Mass/Vol] 42 mg/dL Normal [place] 40 [facility] Comment on above: Result Comment: Brendon ents receiving Metamizole prior to venipuncture, may have falsely depressed results. Performed By: #### L 500.21299, L500.36729, L500.33982, L500.55327, L500.72646 #### [facility] [address] [place] [address] Cholesterol in LDL [Mass/Vol] 100 mg/dL Normal 0-129 [facility] Comment on above: Result Comment: ___C HOLESTEROL/HDL RATIO RISK___ CHD RISK = Total CHOL LDL HDL (CHOL/HDL) Recommended <200 <130 >40 <3.4 Borderline 200-239 130-159 3.4-4.99 High >240 >160 >5.0 Performed By: #### L 500.70575, L500.21167, L500.47496, L500.49623, L500.99778 #### [facility] [place] [address] Triglyceride [Mass/Vol] 243 mg/dL High 30-149 [facility] Comment on above: Result Comment: Brendon ents receiving either N-Acetylcysteine (NAC) or Metamizole prior to venipuncture, may have falsely depressed results. Performed By: #### L 500.21564, L500.66750, L500.07872, L500.38324, L500.84319 #### [facility] [address] [place] [address] [id number] 12-30-2019 [id number] 16.2 NG/ML Low 30.0-100.0 [facility] Comment on above: Result Comment: Defi ciency Less than 20 ng/mL Insufficiency 20 - Less than 30 ng/mL Sufficiency 30 - 100 ng/mL Performed By: #### L 500.27584, L500.88409, L500.17330, L500.98511, L500.75897 #### [facility] [address] [place] [address] CBC W/DIFFon 07-24-2019 BASO ABS 0.10 K/CU MM Normal 0-0.2 [facility] Comment on above: Performed By: #### L 200.96868 #### [facility] [address] [place] [address] Basophils/100 WBC (Bld) 0.7 % Normal 0-2 [facility] Comment on above: Performed By: #### L 200.04981 #### [facility] [address] [place] [address] EOS ABS 0.20 K/CU MM Normal 0-0.5 [facility] Comment on above: Performed By: #### L 200.75102 #### [facility] [address] [place] [address] Eosinophils/100 WBC (Bld) 2.2 % Normal 0-5 [facility] Comment on above: Performed By: #### L 200.20043 #### [facility] [address] [place] [address] Erythrocyte distribution width (RBC) [Ratio] 14.6 % High 11-14.5 [facility] Comment on above: Performed By: #### L 200.15713 #### [facility] [address] [place] [address] Hematocrit (Bld) [Volume fraction] 38.4 % Normal 35.0-47.0 [facility] Comment on above: Performed By: #### L 200.76917 #### [facility] [address] [place] [address] Hemoglobin (Bld) [Mass/Vol] 11.5 g/dL Normal 11.5-15.5 [facility] Comment on above: Performed By: #### L 200.45400 #### [facility] [address] [place] [address] IMMATR GRAN ABS 0.30 K/CU MM Normal Less than 2 [facility] Comment on above: Performed By: #### L 200.36107 #### [facility] [address] [place] [address] IMMATURE GRAN % 3.3 % Normal Less than 2 [facility] Comment on above: Performed By: #### L 200.97031 #### [facility] [address] [place] [address] Lymphocytes (Bld) [#/Vol] 2.10 K/CU MM Normal 0.9-4.4 [facility] Comment on above: Performed By: #### L 200.74909 #### [facility] [address] [place] [address] Lymphocytes/100 WBC (Bld) 28.0 % Normal 20-40 [facility] Comment on above: Performed By: #### L 200.25659 #### [facility] [address] [place] [address] MCHC (RBC) [Mass/Vol] 29.9 g/dL Low 32.0-36.0 [facility] Comment on above: Performed By: #### L 200.39890 #### [facility] [address] [place] [address] MCV (RBC) [Entitic vol] 88.3 fL Normal 80.0-99.0 [facility] Comment on above: Performed By: #### L 200.72207 #### [facility] [address] [place] [address] MONO ABS 0.50 K/CU MM Normal 0.1-1.1 [facility] Comment on above: Performed By: #### L 200.91680 #### [facility] [address] [place] [address] Monocytes/100 WBC (Bld) 7.1 % Normal 2-10 [facility] Comment on above: Performed By: #### L 200.96153 #### [facility] [address] [place] [address] NEUTROPHIL ABS 4.40 K/CU MM Normal 2.0-8.3 [facility] Comment on above: Performed By: #### L 200.08150 #### [facility] [address] [place] [address] Neutrophils/100 WBC (Bld) 58.7 % Normal 45-75 [facility] Comment on above: Performed By: #### L 200.51697 #### [facility] [address] [place] [address] Nucleated RBC/100 WBC (Bld) [Ratio] 0.4 % Normal Less than 1 [facility] Comment on above: Performed By: #### L 200.28892 #### [facility] [address] [place] [address] 20924 Platelet mean volume (Bld) [Entitic vol] 8.8 fL Low 9.4-12.4 [facility] Comment on above: Performed By: #### L 200.30434 #### [facility] [address] [place], [place] [address] Platelets (Bld) [#/Vol] 285 K/CU MM Normal 150-450 [facility] Comment on above: Performed By: #### L 200.25911 #### [facility] [address] [place] [address] RBC (Bld) [#/Vol] 4.35 M/CU MM Normal 3.90-5.30 [facility] Comment on above: Performed By: #### L 200.47438 #### [facility] [address] [place] [address] WBC (Bld) [#/Vol] 7.6 K/CUMM Normal 4.5-11.0 [facility] Comment on above: Performed By: #### L 200.92859 #### [facility] [address] [place] [address] CMPon 07-24-2019 Albumin [Mass/Vol] 3.4 g/dL Normal 3.2-5.0 [facility] Comment on above: Performed By: #### L 500.17061, L500.50391, L500.55502, L500.38160, L500.58444 #### [facility] [address] [place] [address]2573 Albumin/Globulin [Mass ratio] 1.1 {ratio} Normal 0.8-2.0 [facility] Comment on above: Performed By: #### L 500.27381, L500.62655, L500.55715, L500.61349, L500.21171 #### [facility] [place] [address] ALK PHOS 90 U/L Normal 45-117 [facility] Comment on above: Performed By: #### L 500.68938, L500.29070, L500.67391, L500.59539, L500.84411 #### [facility] [address] [place] [address] ALT [Catalytic activity/Vol] 21 U/L Normal 13-61 [facility] Comment on above: Result Comment: RESU LTS MAY BE FALSELY DEPRESSED AFTER THE ADMINISTRATION OF SULFASALAZINE AND/OR SULFAPYRIDINE. Performed By: #### L 500.83752, L500.01159, L500.29013, L500.82156, L500.33547 #### [facility] [address] [place] [address] Anion gap [Moles/Vol] 16 mmol/L Normal 5-16 [facility] Comment on above: Performed By: #### L 500.53347, L500.09036, L500.53518, L500.60695, L500.57002 #### [facility] [address] [place] [address] BILI TOTAL 0.4 MG/DL Normal 0.2-1.0 [facility] Comment on above: Performed By: #### L 500.29096, L500.32509, L500.40260, L500.76628, L500.13655 #### [facility] [address] [place] [address] 45512 Calcium [Mass/Vol] 8.9 mg/dL Normal 8.5-10.1 [facility] Comment on above: Performed By: #### L 500.82234, L500.02883, L500.39958, L500.75955, L500.05638 #### [facility] [place] [address] Chloride [Moles/Vol] 104 mmol/L Normal 98-107 [facility] Comment on above: Performed By: #### L 500.39348, L500.28998, L500.81626, L500.38097, L500.24774 #### [facility] [address] [place], [place] [address] CO2 [Moles/Vol] 21 mmol/L Normal 21-32 [facility] Comment on above: Performed By: #### L 500.88188, L500.32948, L500.16111, L500.39686, L500.18942 #### [facility] [address] [place] [address] Creatinine [Mass/Vol] 0.802 mg/dL Normal 0.510-0.950 [facility] Comment on above: Result Comment: Brendon ents receiving either N-Acetylcysteine (NAC) or Metamizole prior to venipuncture, may have falsely depressed results. Performed By: #### L 500.21966, L500.87479, L500.56891, L500.96427, L500.98050 #### [facility] [address] [place] [address] 76290 Globulin (S) [Mass/Vol] 3.2 g/dL Normal 2.2-4.2 [facility] Comment on above: Performed By: #### L 500.68676, L500.12322, L500.92972, L500.61459, L500.34472 #### [facility] [address] [place] [address] 78635 Glucose [Mass/Vol] 231 mg/dL High 70-100 [facility] Comment on above: Result Comment: 70-1 00- Normal Fasting; 100-125 Impaired Fasting; greater than 126 on more than one result- Diabetes. ADA guidelines. Results may be falsely elevated after the administration of Sulfapyridine. Results may be falsely depressed after the administration of Sulfasalazine. Performed By: #### L 500.55150, L500.38451, L500.81265, L500.29558, L500.76476 #### [facility] [place] [address] Potassium [Moles/Vol] 4.5 mmol/L Normal 3.5-5.1 [facility] Comment on above: Performed By: #### L 500.63701, L500.79500, L500.20396, L500.95079, L500.40984 #### [facility] [address] [place] [address] Protein [Mass/Vol] 6.6 g/dL Normal 6.0-8.5 [facility] Comment on above: Performed By: #### L 500.28068, L500.27234, L500.05526, L500.18162, L500.39924 #### [facility] [address] [place] [address] SGOT (AST) 14 U/L Normal 8-34 [facility] Comment on above: Result Comment: RESU LTS MAY BE FALSELY DEPRESSED AFTER THE ADMINISTRATION OF SULFASALAZINE AND/OR SULFAPYRIDINE. Performed By: #### L 500.51914, L500.20675, L500.69134, L500.24434, L500.78908 #### [facility] [address] [place] [address] Sodium [Moles/Vol] 141 mmol/L Normal 136-145 [facility] Comment on above: Performed By: #### L 500.31697, L500.49050, L500.74813, L500.46846, L500.78738 #### [facility] [address] [place] [address] Urea nitrogen [Mass/Vol] 15 mg/dL Normal 7-26 [facility] Comment on above: Performed By: #### L 500.80446, L500.52200, L500.44423, L500.51068, L500.08111 #### [facility] [place] [address] Urea nitrogen/Creatinine [Mass ratio] 19 mg/mg Normal 15-24 [facility] Comment on above: Performed By: #### L 500.59008, L500.98657, L500.05696, L500.54809, L500.03176 #### [facility] [address] [place] [address] GFR ESTon 07-24-2019 IF AMER Greater than 60 Normal [facility] Comment on above: Performed By: #### L 500.59062, L500.31991, L500.14406, L500.46418, L500.22658 #### [facility] [address] [place] [address] IF non-AFR AMER Greater than 60 Normal [facility] Comment on above: Performed By: #### L 500.80865, L500.37287, L500.34424, L500.57059, L500.72952 #### [facility] [address] [place], [place] [address] LIPIDon 07-24-2019 Cholesterol [Mass/Vol] 158 mg/dL Normal 0-199 [facility] Comment on above: Performed By: #### L 500.79862, L500.75108, L500.02264, L500.23933, L500.63502 #### [facility] [address] [place] [address] 32037 Cholesterol in HDL [Mass/Vol] 42 mg/dL Normal [place] 40 [facility] Comment on above: Result Comment: Brendon ents receiving Metamizole prior to venipuncture, may have falsely depressed results. Performed By: #### L 500.10170, L500.94519, L500.79072, L500.99736, L500.40515 #### [facility] [address] [place] [address] Cholesterol in LDL [Mass/Vol] 70 mg/dL Normal 0-129 [facility] Comment on above: Result Comment: ___C HOLESTEROL/HDL RATIO RISK___ CHD RISK = Total CHOL LDL HDL (CHOL/HDL) Recommended <200 <130 >40 <3.4 Borderline 200-239 130-159 3.4-4.99 High >240 >160 >5.0 Performed By: #### L 500.61209, L500.68526, L500.92696, L500.33381, L500.85424 #### [facility] [address] [place] [address] Triglyceride [Mass/Vol] 231 mg/dL High 30-149 [facility] Comment on above: Result Comment: Brendon ents receiving either N-Acetylcysteine (NAC) or Metamizole prior to venipuncture, may have falsely depressed results. Performed By: #### L 500.87776, L500.99411, L500.41273, L500.08758, L500.06057 #### [facility] [address] [place] [address] T4on 07-24-2019 T4 [Mass/Vol] 9.5 ug/dL Normal 4.8-13.9 [facility] Comment on above: Result Comment: RESU LTS MAY BE FALSELY ELEVATED AFTER THE ADMINISTRATION OF SULFASALAZINE. Performed By: #### L 500.27097, L500.59582, L500.46901, L500.19210, L500.25444 #### [facility] [place] [address] TSHon 07-24-2019 TSH Qn 4.990 UIU/ML High 0.358-3.740 [facility] Comment on above: Result Comment: 3rd generation ultra sensitive TSH Performed By: #### L 500.37025, L500.55158, L500.33643, L500.53748, L500.49299 #### [facility] [address] [place] [address] Vital Signs Date Time Vital Sign Value Performing Clinician Faci lity 03-09-2024 08:58-0400 Body temperature 96.6 [degF] Janie Cortez MD Work Phone: [employer] [facility] 03-09-2024 08:58-0400 Diastolic blood pressure 59 mm[Hg] Janie Cortez MD Work Phone: [employer] [facility] 03-09-2024 08:58-0400 Heart rate 79 /min Janie Cortez MD Work Phone: [employer] [facility] 03-09-2024 08:58-0400 Respiratory rate 16 /min Janie Cortez MD Work Phone: [facility] 03-09-2024 08:58-0400 SaO2% (BldA) [Mass fraction] 100 % Janie Cortez MD Work Phone: [facility] 03-09-2024 08:58-0400 Systolic blood pressure 130 mm[Hg] Janie Cortez MD Work Phone: [facility] 02-28-2024 08:26-0400 Body temperature 99.1 [degF] Serge Stewart MD Work Phone: [facility] 02-28-2024 08:26-0400 Diastolic blood pressure 69 mm[Hg] Serge Stewart MD Work Phone: [facility] 02-28-2024 08:26-0400 Heart rate 80 /min Serge Stewart MD Work Phone: [facility] 02-28-2024 08:26-0400 Respiratory rate 18 /min Serge Stewart MD Work Phone: [facility] 02-28-2024 08:26-0400 SaO2% (BldA) [Mass fraction] 100 % Serge Stewart MD Work Phone: [facility] 02-28-2024 08:26-0400 Systolic blood pressure 142 mm[Hg] Serge Stewart MD Work Phone: [facility] 02-25-2024 04:56-0400 Body mass index (BMI) [Ratio] 41.5 kg/m2 Serge Stewart MD Work Phone: [facility] 02-25-2024 04:56-0400 Body weight 113.13 kg Serge Stewart MD Work Phone: [facility] 02-22-2024 11:00-0400 Body height 165.1 cm Serge Stewart MD Work Phone: [facility] 2022 11:43-0400 Body height 165.1 cm Agustin Barahona APRN.CNP Work Phone: [facility] 2022 11:43-0400 Body temperature 98.49 [degF] Agustin Rawleigh HAM DOCTOR.TOUR ACTOR Work Phone: [facility] 2022 11:43-0400 Diastolic blood pressure 60 mm[Hg] Agustin Rawleigh HAM DOCTOR.TOUR ACTOR Work Phone: [facility] 2022 11:43-0400 Heart rate 77 /min Agustin Rawleigh HAM DOCTOR.TOUR ACTOR Work Phone: [facility] 2022 11:43-0400 SaO2% (BldA) [Mass fraction] 99 % Agustin Rawleigh HAM DOCTOR.TOUR ACTOR Work Phone: [facility] 2022 11:43-0400 Systolic blood pressure 110 mm[Hg] Agustin Rawleigh HAM DOCTOR.TOUR ACTOR Work Phone: [facility] 06-23-2022 13:05-0400 Body height 165.1 cm Agustin Rawleigh HAM DOCTOR.TOUR ACTOR Work Phone: [facility] 06-23-2022 13:05-0400 Body temperature 97.9 [degF] Agustin Rawleigh HAM DOCTOR.TOUR ACTOR Work Phone: [facility] 06-23-2022 13:05-0400 Diastolic blood pressure 60 mm[Hg] Agustin Rawleigh HAM DOCTOR.TOUR ACTOR Work Phone: [facility] 06-23-2022 13:05-0400 Heart rate 77 /min Agustin Rawleigh HAM DOCTOR.TOUR ACTOR Work Phone: [facility] 06-23-2022 13:05-0400 SaO2% (BldA) [Mass fraction] 98 % Agustin Rawleigh HAM DOCTOR.TOUR ACTOR Work Phone: [facility] 06-23-2022 13:05-0400 Systolic blood pressure 122 mm[Hg] Agustin Rawleigh HAM DOCTOR.TOUR ACTOR Work Phone: [facility] 05-07-2022 07:15-0400 Body temperature 96.21 [degF] Gigi Diehl MD Work Phone: [facility] 05-07-2022 07:15-0400 Diastolic blood pressure 74 mm[Hg] Gigi Diehl MD Work Phone: [facility] 05-07-2022 07:15-0400 Heart rate 73 /min Gigi Diehl MD Work Phone: [facility] 05-07-2022 07:15-0400 Respiratory rate 16 /min Gigi Diehl MD Work Phone: [facility] 05-07-2022 07:15-0400 SaO2% (BldA) [Mass fraction] 99 % Gigi Diehl MD Work Phone: [facility] 05-07-2022 07:15-0400 Systolic blood pressure 138 mm[Hg] Gigi Diehl MD Work Phone: [facility] 05-03-2022 04:25-0400 Body mass index (BMI) [Ratio] 48.79 kg/m2 Gigi Diehl MD Work Phone: [facility] 05-03-2022 04:25-0400 Body weight 133 kg Gigi Diehl MD Work Phone: [facility] 04-30-2022 16:32-0400 Body height 165.1 cm Gigi Diehl MD Work Phone: [facility] 03-22-2022 13:53-0400 Body temperature 99.39 [degF] Frankie Deng MD Work Phone: [facility] 03-22-2022 13:53-0400 Diastolic blood pressure 62 mm[Hg] Frankie Deng MD Work Phone: [facility] 03-22-2022 13:53-0400 Heart rate 85 /min Frankie Deng MD Work Phone: [facility] 03-22-2022 13:53-0400 Respiratory rate 18 /min Frankie Deng MD Work Phone: [facility] 03-22-2022 13:53-0400 SaO2% (BldA) [Mass fraction] 98 % Frankie Deng MD Work Phone: [facility] 03-22-2022 13:53-0400 Systolic blood pressure 122 mm[Hg] Frankie Deng MD Work Phone: [facility] 10-11-2021 11:27-0500 Body temperature 96.91 [degF] Quique Aranda MD Work Phone: [facility] 10-11-2021 11:27-0500 Diastolic blood pressure 78 mm[Hg] Quique Aranda MD Work Phone: [facility] 10-11-2021 11:27-0500 Heart rate 79 /min Quique Aranda MD Work Phone: [facility] 10-11-2021 11:27-0500 Respiratory rate 17 /min Quique Aranda MD Work Phone: [facility] 10-11-2021 11:27-0500 SaO2% (BldA) [Mass fraction] 100 % Quique Aranda MD Work Phone: [facility] 10-11-2021 11:27-0500 Systolic blood pressure 151 mm[Hg] Quique Aranda MD Work Phone: [facility] 10-11-2021 04:16-0500 Body mass index (BMI) [Ratio] 49.02 kg/m2 Quique Aranda MD Work Phone: [facility] 10-11-2021 04:16-0500 Body weight 129.55 kg Quique Aranda MD Work Phone: [facility] 10-10-2021 09:27-0500 Body height 162.6 cm Quique Aranda MD Work Phone: [facility] Encounters Encounter Date Encounter Type Care Provider Facility Start: 07-22-2025 ambulatory Lucy Quick [facility] Faci lity:[facility] Start: 07-06-2025 ambulatory Lucy Quick OLS Faci lity:[facility] Start: 05-05-2025 ambulatory Lucy Quick OLS Faci lity:[facility] Start: 04-21-2025 ambulatory Lucy SALGADO Faci lity:[facility] Start: 04-02-2025 ambulatory Lucy SALGADO Faci lity:[facility] Start: 02-12-2025 End: 02-12-2025 ambulatory Lucy SALGADO [facility] Work Phone: Start: 02-12-2025 End: 02-12-2025 Departed Referred Lucy MEHTA Start: 02-12-2025 End: 02-12-2025 ambulatory Lucy SALGADO Facility:[facility] Start: 01-19-2025 End: 01-19-2025 ambulatory Lucy SALGADO [facility] Work Phone: Start: 01-19-2025 End: 01-19-2025 Departed Referred Lucy [facility] Start: 01-19-2025 End: 01-19-2025 ambulatory Lucy SALGADO Facility:[facility] Start: 12-19-2024 End: 12-19-2024 ambulatory Lucy SALGADO [facility] Work Phone: Start: 12-19-2024 End: 12-19-2024 Departed Referred Lucy [facility]uj[facility] Start: 12-19-2024 End: 12-19-2024 ambulatory Lucy SALGADO Facility:[facility] Start: 11-04-2024 End: 11-04-2024 Departed Referred Lucy Quick -[facility] Start: 11-04-2024 End: 11-04-2024 ambulatory Lucy SALGADO Facility:[facility] Start: 10-09-2024 ambulatory Lucy SALGADO Faci lity:[facility] Start: 10-09-2024 Registered Referred Lucy Quick - [employer] Start: 10-02-2024 End: 10-02-2024 Departed Referred Lucy Quick -[employer] Start: 10-02-2024 End: 10-02-2024 ambulatory Lucy SALGADO Facility:[facility] Start: 09-17-2024 End: 09-17-2024 [facility] Start: 09-17-2024 End: 09-17-2024 ambulatory Lucy SALGADO Facility:[facility] Start: 08-19-2024 End: 08-19-2024 ambulatory Lucy SALGADO Facility:[facility] Start: 08-14-2024 End: 08-14-2024 ambulatory Lucy SALGADO Facility:[facility] Start: 08-07-2024 End: 08-07-2024 ambulatory Lucy SALGADO Facility:[facility] Start: 03-05-2024 End: 03-09-2024 Evaluation and management of inpatient Janie Cortez MD Work Phone: [facility] Medical Surgical Unit MSU 4S Comment on above: UTI (urinary tract i nfection) (Primary Dx); Transient alteration of awareness; Lower urinary tract infectious disease; Edema, unspecified type; Edema of right upper arm Start: 02-21-2024 End: 02-28-2024 Evaluation and management of inpatient Serge Stewart MD Work Phone: [facility] Cardiac Progressive Care Unit PCU 2E Start: 12-31-2023 End: 12-31-2023 ambulatory [facility] Work Phone: Start: 12-31-2023 End: 12-31-2023 Departed Referred [facility] [employer] Start: 12-10-2023 End: 12-10-2023 ambulatory [facility] Work Phone: Start: 12-10-2023 End: 12-10-2023 Departed Referred [facility] [employer] [facility] Start: 10-04-2023 End: 10-04-2023 Departed Referred [facility] [employer] Start: 08-02-2023 End: 08-02-2023 ambulatory [facility] Work Phone: Start: 08-02-2023 End: 08-02-2023 Departed Referred [facility] [employer] [facility] Start: 07-16-2023 End: 07-16-2023 Departed Referred [facility] Start: 07-16-2023 Registered Referred [facility] Start: 07-03-2023 End: 07-03-2023 ambulatory [facility] Work Phone: Start: 07-03-2023 End: 07-03-2023 Departed Referred [facility] Start: 06-29-2023 Emergency department patient visit LUCY QUICK Facility:[facility] Start: 06-29-2023 End: 06-29-2023 ambulatory [facility] Work Phone: Start: 06-29-2023 End: 06-29-2023 Departed Referred [facility] Start: 05-25-2023 Telephone encounter Lucy Quick MD Work Phone: Geriatrics Comment on above: Consult Start: 05-21-2023 End: 05-21-2023 ambulatory [facility] Work Phone: Start: 05-21-2023 End: 05-21-2023 Departed Referred [facility] Start: 05-10-2023 Refill Agustin silverman APRN.CNP Work Phone: [facility] Comment on above: Refill Request Start: 04-26-2023 Refill Agsutin silverman APRN.TOUR ACTOR Work Phone: [facility] Comment on above: Refill Request Start: 04-04-2023 End: 04-04-2023 ambulatory [facility] Work Phone: Start: 04-04-2023 End: 04-04-2023 Departed Referred [facility] Start: 03-30-2023 End: 03-30-2023 ambulatory [facility] Work Phone: Start: 03-30-2023 End: 03-30-2023 Departed Referred [facility] Start: 03-30-2023 Registered Referred [facility] Start: 03-20-2023 End: 03-20-2023 ambulatory [facility] Work Phone: Start: 03-20-2023 End: 03-20-2023 Departed Referred [facility] Start: 03-13-2023 End: 03-13-2023 ambulatory [facility] Work Phone: Start: 03-13-2023 End: 03-13-2023 Departed Referred [facility] Start: 03-13-2023 Registered Referred [facility] Start: 03-09-2023 Telephone encounter Travis House RN [facility] Comment on above: Orders ([place] HFC - ord er contact/deferral) Start: 03-02-2023 E-mail encounter fro m caregiver Ccf Provider [facility] Start: 03-02-2023 Patient encounter procedure Ccf Provider [facility] Comment on above: Appointment Change Start: 02-27-2023 End: 02-27-2023 ambulatory [facility] Work Phone: Start: 02-27-2023 End: 02-27-2023 Departed Referred [facility] Start: 02-27-2023 Registered Referred [facility] Start: 02-26-2023 End: 02-26-2023 ambulatory [facility] Work Phone: Start: 02-26-2023 End: 02-26-2023 Departed Referred [facility] Start: 02-26-2023 Registered Referred [facility] Start: 02-22-2023 Telephone encounter Kerry HAGER [facility] Comment on above: Orders (HFC order co ntact/2nd letter) Start: 02-20-2023 Registered Referred [facility] Start: 02-19-2023 End: 02-19-2023 ambulatory [facility] Work Phone: Start: 02-19-2023 End: 02-20-2023 Departed Referred [facility] Start: 02-11-2023 End: 02-15-2023 ambulatory MORGAN DOMINGO BERNARD Facility:[facility] Start: 02-06-2023 Patient Outreach Saniya Coleman RN Event Planning Intern Comment on above: Transition Of Care ( SNF Update) Start: 02-02-2023 End: 02-02-2023 ambulatory [facility] Work Phone: Start: 02-02-2023 End: 02-02-2023 Departed Referred [facility] Start: 02-02-2023 Registered Referred [facility] Start: 01-29-2023 Patient Outreach Vy Almaguer [facility] Comment on above: Transition Of Care ( [facility] 01/28/23) Start: 01-28-2023 End: 01-28-2023 Emergency department patient visit AGUSTIN Giancarlo BARAHONA Facility:[facility] Start: 01-26-2023 Refill Deniz Wagoner Work Phone: [facility] Cardiology [place] Comment on above: Refill Request Start: 01-26-2023 End: 01-26-2023 ambulatory [facility] Work Phone: Start: 01-26-2023 End: 01-26-2023 Departed Referred [facility] Start: 01-26-2023 Registered Referred [facility] Start: 01-17-2023 Telephone encounter Solange Arenas RN [facility] Comment on above: Orders; [place] HFC appt contact Start: 01-17-2023 End: 01-17-2023 ambulatory [facility] Work Phone: Start: 01-17-2023 End: 01-17-2023 Departed Referred [facility] Start: 01-17-2023 Registered Referred [facility] Start: 01-15-2023 ambulatory Saniya Coleman RN [facility] Start: 01-15-2023 Evaluation and manag ement of inpatient Saniya Coleman RN AG Event Planning Intern Comment on above: Transition Of Care ( Inpatient TCM visit) Start: 01-15-2023 Telephone encounter Kerry Parr [facility] Comment on above: Orders (HFC deferral ) Start: 01-12-2023 End: 01-16-2023 Evaluation and management of inpatient JULISSA ARMSTRONG Facility:[facility] Start: 01-10-2023 End: 01-10-2023 ambulatory [facility] Work Phone: Start: 01-10-2023 End: 01-10-2023 Departed Referred [facility] Start: 01-10-2023 Registered Referred [facility] Start: 01-06-2023 Refill Agustin silverman APRN.CNP Work Phone: [facility] Comment on above: Refill Request Start: 01-05-2023 End: 01-05-2023 Refill Deniz Silva MD Work Phone: [facility] Cardiology [place] Comment on above: Refill Request Start: 01-05-2023 End: 01-05-2023 Departed Referred [facility] Start: 01-05-2023 Registered Referred [facility] Start: 01-04-2023 Registered [facility] Start: 01-04-2023 Registered Referred [facility] Start: 01-02-2023 End: 01-02-2023 Emergency department patient visit SANDY BONNER Facility:[facility] Start: 01-02-2023 End: 01-02-2023 ambulatory [facility] Work Phone: Start: 01-02-2023 End: 01-02-2023 Departed Referred [facility] Start: 01-02-2023 Registered Referred [facility] Start: 12-25-2022 End: 12-25-2022 ambulatory [facility] Work Phone: Start: 12-25-2022 End: 12-25-2022 Departed Referred [facility] Start: 12-25-2022 Registered Referred [facility] Start: 12-22-2022 Refill Manisha Johnson PA-C Work Phone: Family Medicine Comment on above: Refill Request Start: 12-19-2022 Telephone encounter Kerry Parr [facility] Comment on above: Orders (HFC order co ntact/2nd letter) Start: 12-07-2022 Coordination of care plan Zelda Tong over [facility] Comment on above: Encounter for suppor t and coordination of transition of care (Primary Dx) Start: 12-05-2022 End: 12-05-2022 ambulatory [facility] Work Phone: Start: 12-05-2022 End: 12-05-2022 Departed Referred [facility] Start: 12-05-2022 Registered Referred [facility] Start: 11-29-2022 Refill Agustin silverman APRN.CNP Work Phone: [facility] Comment on above: Refill Request Start: 11-28-2022 End: 11-28-2022 ambulatory [facility] Work Phone: Start: 11-28-2022 End: 11-28-2022 Departed Referred [facility] Start: 11-28-2022 Registered Referred [facility] Start: 11-27-2022 End: 11-27-2022 ambulatory [facility] Work Phone: Start: 11-27-2022 End: 11-27-2022 Departed Referred [facility] Start: 11-24-2022 End: 11-24-2022 ambulatory [facility] Work Phone: Start: 11-24-2022 End: 11-24-2022 Departed Referred [facility] Start: 11-24-2022 Registered Referred [facility] Start: 11-20-2022 Patient Outreach Saniya Coleman RN AG Event Planning Intern Comment on above: Transition Of Care ( Discharge to SNF) Orders (HFC order co ntact/SNF letter) Start: 11-10-2022 End: 11-17-2022 ambulatory Krupa Aparicio RN Work Phone: [facility] Start: 11-09-2022 Telephone encounter Agustin lawson HAM DOCTOR.TOUR ACTOR Work Phone: [facility] Comment on above: Home Care Arrangemen ts Transition Of Care ( [place] 10/28-11/08/22 [facility]) Start: 11-02-2022 Refill Agustin silverman HAM DOCTOR.TOUR ACTOR Work Phone: [facility] Comment on above: Refill Request Start: 10-31-2022 Telephone encounter Essie Sarkar HAM DOCTOR.TOUR ACTOR Work Phone: [facility] Comment on above: Orders (HFC order co ntact/SNF letter) Start: 10-29-2022 Telephone encounter Odilia mercedes DO Work Phone: [facility] Comment on above: Medication Problem ( Called by SNF. Lyrica printed script was not sent) Start: 10-15-2022 End: 10-28-2022 Evaluation and management of inpatient AGUSTIN BARAHONA Facility:[facility] Start: 10-06-2022 Refill Agustin silverman HAM DOCTOR.TOUR ACTOR Work Phone: [facility] Comment on above: Refill Request Start: 10-05-2022 Refill Agustin silverman APRN.TOUR ACTOR Work Phone: [facility] Comment on above: Refill Request Start: 10-03-2022 Telephone encounter Agustin lawson APRN.TOUR ACTOR Work Phone: [facility] Comment on above: Patient Update Start: 09-29-2022 End: 09-29-2022 ambulatory Agustin Barahona APRN.TOUR ACTOR Work Phone: [facility] Comment on above: Recurrent UTI (urina ry tract infection) (Primary Dx); Bullous rash; Stage 3b chronic kidney disease (HCC); Type 2 diabetes mellitus with diabetic polyneuropathy, with long-term current use of insulin (HCC); Acute on chronic diastolic CHF (congestive heart failure) (HCC); Chronic respiratory failure with hypoxia (HCC) Start: 09-29-2022 End: 09-29-2022 Telemedicine consultation with patient Agustin Giancarlo Barahona APRN.TOUR ACTOR Work Phone: [facility] Start: 09-28-2022 Refill Adele betancourt APRN.TOUR ACTOR Work Phone: [facility] Comment on above: Refill Request Start: 09-25-2022 Refill Agustin silverman APRN.TOUR ACTOR Work Phone: Event Planning Intern Comment on above: Refill Request Transition Of Care ( Patient call, TCM follow up ) Start: 09-11-2022 Telephone encounter Agustin lawson APRN.TOUR ACTOR Work Phone: [facility] Comment on above: Results Start: 09-08-2022 Patient Outreach Krupa ponce RN Work Phone: Event Planning Intern Comment on above: Transition Of Care ( Return Patient call) Start: 09-08-2022 Refill Agustin silverman APRN.TOUR ACTOR Work Phone: [facility] Comment on above: Refill Request Start: 08-31-2022 Refill Agustin silverman HAM DOCTOR.TOUR ACTOR Work Phone: Event Planning Intern Comment on above: Med Change Request Start: 08-30-2022 End: 08-31-2022 ambulatory AGUSTIN BARAHONA Facility:[facility] Start: 08-30-2022 End: 08-30-2022 Nursing evaluation of patient and report Nurse Card Chf 1 [facility] Comment on above: Congestive heart juan lure, unspecified HF chronicity, unspecified heart failure type (HCC) [I50.9 (ICD-10-CM)] (Primary Dx) Start: 08-30-2022 Telephone encounter Tea koroma APRN.TOUR ACTOR Work Phone: [facility] Cardiology [place] Comment on above: Appointment Start: 08-29-2022 Refill Agustin silverman HAM DOCTOR.TOUR ACTOR Work Phone: [facility] Comment on above: Refill Request Start: 08-29-2022 Telephone encounter Agustin lawson HAM DOCTOR.TOUR ACTOR Work Phone: [facility] Comment on above: Consult (PAIN MANAGE MENT) Start: 08-28-2022 Patient Outreach Krupa ponce RN Work Phone: Event Planning Intern Comment on above: Transition Of Care ( [facility] 08/22-08/27/22 TCM) Medication Problem ( Recent hospital discharge) Start: 08-26-2022 Telephone encounter Martín Carbajal MD Work Phone: [facility] Comment on above: Patient Update Start: 08-24-2022 Refill Agustin silverman HAM DOCTOR.TOUR ACTOR Work Phone: [facility] Comment on above: Refill Request; Refi ll Request Start: 08-23-2022 Telephone encounter Estela Hassanron [facility] Comment on above: Patient Update Start: 08-22-2022 End: 08-27-2022 Evaluation and management of inpatient ZULLY DAMIAN Facility:[facility] Start: 08-22-2022 End: 08-22-2022 Emergency department patient visit AGUSTIN BARAHONA Facility:[facility] Start: 08-21-2022 Telephone encounter Deniz polo MD Work Phone: [facility] Cardiology [place] Comment on above: Patient Update Patient Update (Leg swelling) Start: 08-17-2022 ambulatory Disha Camejo RN AG [facility] Comment on above: Primary Care Coordin ator- Other (PCC Chart review) Start: 08-17-2022 Coordination of care plan Disha rodrigues RN AG Event Planning Intern Comment on above: Primary Care Coordin ator- Other (Primary Care Coordination Intake Attempt) Start: 2022 End: 2022 ambulatory AGUSTIN BARAHONA Facility:[facility] Start: 2022 End: 2022 Patient encounter procedure Agustin Barahona HAM DOCTOR.TOUR ACTOR Work Phone: [facility] Comment on above: Ecthyma (Primary Dx) ; Leg swelling; Stage 3b chronic kidney disease (HCC); Primary hypertension; Type 2 diabetes mellitus with diabetic polyneuropathy, with long-term current use of insulin (HCC); Chronic heart failure with preserved ejection fraction (HFpEF) (HCC); Recurrent UTI (urinary tract infection); Physical debility Start: 08-11-2022 Refill Agustin silverman HAM DOCTOR.TOUR ACTOR Work Phone: [facility] Comment on above: Refill Request Start: 08-08-2022 Telephone encounter Agustin lawson HAM DOCTOR.TOUR ACTOR Work Phone: [facility] Comment on above: Refill Request Start: 08-04-2022 Refill Agustin silverman HAM DOCTOR.TOUR ACTOR Work Phone: [facility] Comment on above: Refill Request Start: 08-02-2022 Telephone encounter Val andino MD Work Phone: [facility] Comment on above: Appointment Results (Labs done a t ED) Patient Question; Or ders (US DVT LOWER BILATERAL) Start: 07-27-2022 Telephone encounter Micheline de la torre RN [facility] Comment on above: Appointment Start: 07-20-2022 E-mail encounter fro travis caregiver Ccf Provider [facility] Start: 07-20-2022 Patient encounter procedure Ccf Provider [facility] Comment on above: Appointment update Start: 07-20-2022 Telephone encounter Travis House RN [facility] Comment on above: Orders (Appointment update) Start: 07-16-2022 Refill Deniz Wagoner Work Phone: [facility] Comment on above: Refill Request Start: 07-14-2022 Telephone encounter Agustin lawson APRN.TOUR ACTOR Work Phone: [facility] Comment on above: Patient Question (Me dication) Start: 07-06-2022 Telephone encounter Susan ponce [facility] Work Phone: Pharmacy Medicine Comment on above: Insurance Account Representative - O ther (Discharged from pharmD services) Start: 07-06-2022 End: 07-06-2022 ambulatory [facility] Facility:[facility] Start: 07-06-2022 End: 07-06-2022 ambulatory Susan Cuello [facility] Work Phone: Pharmacy Medicine Comment on above: Type 2 diabetes vishal itus with diabetic polyneuropathy, with long-term current use of insulin (HCC) Start: 07-06-2022 End: 07-06-2022 Telemedicine consultation with patient Susan Copeland [facility] Work Phone: [facility] Start: 07-05-2022 Telephone encounter Solange Arenas RN [facility] Comment on above: ak HFC swelling Start: 07-05-2022 End: 07-05-2022 ambulatory Agustin Barahona APRN.TOUR ACTOR Work Phone: [facility] Comment on above: Cellulitis of right lower extremity (Primary Dx); Rash; Chronic diastolic congestive heart failure (HCC); Type 2 diabetes mellitus with diabetic polyneuropathy, with long-term current use of insulin (HCC); Stage 3b chronic kidney disease (HCC) Start: 07-05-2022 End: 07-05-2022 Telemedicine consultation with patient Agustin Barahona DARREL.TOUR ACTOR Work Phone: [facility] Start: 06-29-2022 Telephone encounter Frankie Deng MD Work Phone: Mobile Services Comment on above: Patient Update ([facility] PCP); cancelled [facility] Start: 06-27-2022 Telephone encounter Agustin Mondragon Ra renny ROJO.TOUR ACTOR Work Phone: [facility] Comment on above: Consult (SLEEP MEDIC INE) Start: 06-26-2022 Telephone encounter Deniz polo MD Work Phone: [facility] Comment on above: [place]-HFC;order request Results Consult (HOME HEALTH ) Patient Update Start: 06-23-2022 End: 06-23-2022 Patient encounter procedure Agustin Barahona DARREL.TOUR ACTOR Work Phone: [facility] Comment on above: Type 2 diabetes vishal itus with diabetic polyneuropathy, with long-term current use of insulin (HCC) (Primary Dx); Cellulitis of right lower extremity; Physical deconditioning; DIYA (obstructive sleep apnea); Chronic constipation; Recurrent UTI (urinary tract infection); Chronic respiratory failure with hypoxia ([facility]); Chronic obstructive pulmonary disease, unspecified COPD type ([facility]); Chronic heart failure with preserved ejection fraction (HFpEF) ([facility]); Coronary artery disease involving [place]ash[place] coronary artery of ugashik heart without angina pectoris; Stage 3b chronic kidney disease ([facility]); Elevated TSH Start: 06-12-2022 End: 06-12-2022 ambulatory [facility] Facility:[facility] Start: 06-09-2022 Refill Frankie Deng MD Work Phone: [employer] Comment on above: Refill Request Start: 05-30-2022 Refill Deniz Wagoner Work Phone: [facility] Cardiology [place] Comment on above: Refill Request Start: 05-23-2022 End: 05-23-2022 ambulatory [facility] Facility:[facility] Start: 05-23-2022 End: 05-23-2022 ambulatory Susan Cuello [facility] Work Phone: Pharmacy Medicine Comment on above: Type 2 diabetes vishal itus with diabetic polyneuropathy, with long-term current use of insulin (HCC) (Primary Dx) Start: 05-23-2022 End: 05-23-2022 Telemedicine consultation with patient Susan Cuello [facility] Work Phone: [facility] Start: 05-10-2022 End: 05-10-2022 [facility] Facility:[facility] Start: 05-10-2022 End: 05-10-2022 ambulatory Susan Cuello [facility] Work Phone: Pharmacy Medicine Comment on above: Type 2 diabetes vishal itus with diabetic polyneuropathy, with long-term current use of insulin (HCC) (Primary Dx) Start: 05-10-2022 End: 05-10-2022 Telemedicine consultation with patient Susan Cuello [facility] Work Phone: [facility] Start: 05-08-2022 Telephone encounter Frankie Deng MD Work Phone: [employer] Comment on above: Constipation; Edema Start: 04-30-2022 End: 05-07-2022 Evaluation and management of inpatient Gigi Diehl MD Work Phone: [facility] Comment on above: Urinary tract infect ion with hematuria, site unspecified (Primary Dx); Acute kidney injury superimposed on CKD (HCC) Start: 04-14-2022 Telephone encounter Susan ponce [facility] Work Phone: Pharmacy Medicine Comment on above: Care Coordination Start: 04-14-2022 End: 04-14-2022 ambulatory [facility] Facility:[facility] Start: 04-14-2022 End: 04-14-2022 ambulatory Susan Min [facility] Work Phone: Pharmacy Medicine Comment on above: Type 2 diabetes vishal itus with diabetic polyneuropathy, with long-term current use of insulin (HCC) (Primary Dx) Start: 04-14-2022 End: 04-14-2022 Telemedicine consultation with patient Susan Cuello [facility] Work Phone: [facility] Start: 04-13-2022 End: 04-14-2022 ambulatory Shea Childers HAM DOCTOR.TOUR ACTOR Work Phone: [employer] Comment on above: Recurrent UTI (urina ry tract infection) (Primary Dx); Type 2 diabetes mellitus with diabetic polyneuropathy, with long-term current use of insulin (HCC); Chronic heart failure with preserved ejection fraction (HFpEF) (HCC); DDD (degenerative disc disease), lumbar Start: 04-13-2022 End: 04-13-2022 Telemedicine consultation with patient Shea Sheng Childers HAM DOCTOR.TOUR ACTOR Work Phone: [employer] Start: 04-11-2022 Telephone encounter Frankie Deng MD Work Phone: [employer] [facility] Comment on above: POST ED Start: 03-28-2022 Telephone encounter Frankie Deng MD Work Phone: [employer] [facility] Comment on above: [facility] Start: 03-24-2022 Refill Moe Wagoner Work Phone: Pharmacy Medicine Comment on above: Refill Request; Refi ll Request Start: 03-24-2022 Telephone encounter Frankie Deng MD Work Phone: [employer] [facility] Comment on above: DME Order (oxygen ) Start: 03-23-2022 Telephone encounter Sheree HUANG Work Phone: [facility] Comment on above: Home Care (Confirmat ion Call ) Start: 03-22-2022 End: 03-23-2022 ambulatory Susan Cuello [facility] Work Phone: Pharmacy Medicine Comment on above: Type 2 diabetes vishal itus with diabetic polyneuropathy, with long-term current use of insulin (HCC) (Primary Dx) Type 2 diabetes vishal itus with diabetic polyneuropathy, with long-term current use of insulin ([facility]) (Primary Dx); Stage 3b chronic kidney disease ([facility]); Chronic respiratory failure with hypoxia (HCC); Restrictive lung disease; Chronic heart failure with preserved ejection fraction (HFpEF) ([facility]); Morbid obesity with BMI of 45.0-49.9, adult ([facility]); Recurrent UTI (urinary tract infection); Primary hypertension; Coronary artery disease involving [place] heart without angina pectoris, unspecified vessel or lesion type; Mixed hyperlipidemia; DIYA (obstructive sleep apnea); Requires assistance with activities of daily living (ADL); Weakness of both legs; DDD (degenerative disc disease), lumbar; Spondylolisthesis of lumbar region; Trigger middle finger of right hand; History of COVID-19; Slow transit constipation Start: 03-22-2022 End: 03-22-2022 Telemedicine consultation with patient Susan Cuello [facility] Work Phone: [facility] Start: 03-17-2022 Refill Moe Wagoner Work Phone: Family Medicine Comment on above: Refill Request Start: 03-09-2022 Telephone encounter Merissa Jonas link [facility] Home Respiratory Therapy Comment on above: Oxygen Start: 03-08-2022 End: 03-08-2022 ambulatory Susan Cuello [facility] Work Phone: Pharmacy Medicine Comment on above: Type 2 diabetes vishal itus with diabetic polyneuropathy, with long-term current use of insulin ([facility]) (Primary Dx); Medication management Refill Request Start: 03-08-2022 End: 03-08-2022 Telemedicine consultation with patient Susan Cuello [facility] Work Phone: [facility] Start: 02-28-2022 Telephone encounter Moe deleon MD Work Phone: Family Medicine Comment on above: Patient Update; Medi cation Follow-up Start: 02-27-2022 Telephone encounter Deniz polo MD Work Phone: [facility] [place] Comment on above: Patient Update (D/C Plavic out of pill pack) Start: 02-27-2022 End: 02-27-2022 ambulatory Deniz Silva MD Work Phone: [facility] [place] Comment on above: Primary hypertension (Primary Dx); Mixed hyperlipidemia; Coronary arteriosclerosis in [place] artery; Chronic diastolic congestive heart failure (HCC); DIYA (obstructive sleep apnea) Start: 02-27-2022 End: 02-27-2022 Telemedicine consultation with patient Deniz Silva MD Work Phone: [facility] Start: 02-24-2022 Refill Deniz Wagoner Work Phone: [facility] Cardiology [place] Comment on above: Refill Request Start: 02-19-2022 Refill Moe Savel M D Work Phone: [facility] Comment on above: Refill Request Start: 02-15-2022 End: 02-15-2022 ambulatory [facility] Facility:[facility] [place] Start: 02-15-2022 End: 02-15-2022 ambulatory Susan Cuello RPh Work Phone: Pharmacy Medicine Comment on above: Type 2 diabetes vishal itus with diabetic polyneuropathy, with long-term current use of insulin (HCC) (Primary Dx) Start: 02-15-2022 End: 02-15-2022 Telemedicine consultation with patient Susan Cuello RPh Work Phone: [facility] Start: 01-31-2022 End: 01-31-2022 ambulatory [facility] Facility:[facility] [place] Start: 01-30-2022 Refill Moe Savel M D Work Phone: [facility] Comment on above: Refill Request Start: 01-23-2022 Telephone encounter Susan ponce RPadelita Work Phone: Pharmacy Medicine Comment on above: Patient Update Start: 01-18-2022 End: 01-18-2022 Nursing evaluation of patient and report Nurse Card Chf 2 [facility] Comment on above: Acute congestive hea rt failure, unspecified heart failure type (HCC) Start: 01-13-2022 End: 01-13-2022 ambulatory [facility] Facility:[facility] [place] Start: 01-06-2022 End: 01-06-2022 ambulatory [facility] Facility:[facility] [place] Start: 12-19-2021 End: 12-20-2021 ambulatory [facility] Facility:[facility] [place] Start: 12-16-2021 End: 12-16-2021 ambulatory [facility] Facility:[facility] [place] Start: 10-01-2021 End: 10-11-2021 Evaluation and management of inpatient Quique Aranda MD Work Phone: [facility] [employer] Procedures Date Procedure Procedure Detail Performing Clinician Start: 12-19-2024 Measurement of renal function Lucy SALGADO Comment on above: GFR Calc Start: 11-04-2024 Urine culture Lucy SALGADO Start: 03-09-2024 Glucose quantitative blood xcpt reagent strip Carmen Vogt DO Work Phone: Start: 03-09-2024 Comprehensive metabolic panel Jose Lynn MD Work Phone: Start: 03-08-2024 Glucose quantitative blood xcpt reagent strip Carmen Vogt DO Work Phone: Start: 03-08-2024 Glucose quantitative blood xcpt reagent strip Carmen Vogt DO Work Phone: Start: 03-08-2024 Glucose quantitative blood xcpt reagent strip Carmen Vogt DO Work Phone: Start: 03-08-2024 Glucose quantitative blood xcpt reagent strip Carmen Vogt DO Work Phone: Start: 03-08-2024 Comprehensive metabolic panel Jose Lynn MD Work Phone: Start: 03-07-2024 Glucose quantitative blood xcpt reagent strip Carmen Vogt DO Work Phone: Start: 03-07-2024 Glucose quantitative blood xcpt reagent strip Carmen Vogt DO Work Phone: Start: 03-07-2024 End: 03-07-2024 Glucose quantitative blood xcpt reagent strip Carmen Vogt DO Work Phone: Start: 03-07-2024 Glucose quantitative blood xcpt reagent strip Carmen Vogt DO Work Phone: Start: 03-07-2024 End: 03-07-2024 Bacteria identified in Blood by Culture Carmen Talamantes DO Work Phone: Start: 03-07-2024 Basic metabolic pane l calcium total Eboni Fletcher MD Work Phone: Start: 03-06-2024 Glucose quantitative blood xcpt reagent strip Caremn Talamantes DO Work Phone: Start: 03-06-2024 Glucose quantitative blood xcpt reagent strip Carmen Talamantes DO Work Phone: Start: 03-06-2024 Ct head/brain w/o co ntrast material Carmen Talamantes DO Work Phone: Start: 03-06-2024 Glucose quantitative blood xcpt reagent strip Carmen Talamantes DO Work Phone: Start: 03-06-2024 Urnls dip stick/tabl et reagent auto microscopy Eboni Fletcher MD Work Phone: Start: 03-06-2024 Dup-scan xtr veins unilateral/limited study Eboni Fletcher MD Work Phone: Start: 03-06-2024 POCT GLUCOSE METER Rip Fletcher MD Work Phone: Start: 03-06-2024 Glucose quantitative blood xcpt reagent strip Carmen Talamantes DO Work Phone: Start: 03-05-2024 Culture bacterial qu anttative colony count urine Janie Cortez MD Work Phone: Start: 03-05-2024 Urinalysis complete panel - Urine Janie Cortez MD Work Phone: Start: 03-05-2024 End: 03-05-2024 Comprehensive metabolic panel Janie dao MD Work Phone: Start: 03-05-2024 Radiologic exam ches t single view Janie Cortez MD Work Phone: Start: 02-28-2024 Glucose quantitative blood xcpt reagent strip Cheko Mendoza MD Work Phone: Start: 02-28-2024 Glucose quantitative blood xcpt reagent strip Cheko Mendoza MD Work Phone: Start: 02-28-2024 End: 02-28-2024 Comprehensive metabolic panel Blanche Castillo MD Work Phone: Start: 02-28-2024 Manual Differential panel - Blood Blanche Castillo MD Work Phone: Start: 02-27-2024 Glucose quantitative blood xcpt reagent strip Ann Reed MD Work Phone: Start: 02-27-2024 Glucose quantitative blood xcpt reagent strip Ann Reed MD Work Phone: Start: 02-27-2024 Glucose quantitative blood xcpt reagent strip Ann Reed MD Work Phone: Start: 02-27-2024 Glucose quantitative blood xcpt reagent strip Ann Reed MD Work Phone: Start: 02-27-2024 IR CVC PICC PLACEMENT P marita Reed MD Work Phone: Start: 02-27-2024 Glucose quantitative blood xcpt reagent strip Ann Reed MD Work Phone: Start: 02-27-2024 Comprehensive metabolic panel Blanche Castillo MD Work Phone: Start: 02-27-2024 Manual Differential panel - Blood Blanche Castillo MD Work Phone: Start: 02-26-2024 Glucose quantitative blood xcpt reagent strip Ann Reed MD Work Phone: Start: 02-26-2024 Glucose quantitative blood xcpt reagent strip Ann Reed MD Work Phone: Start: 02-26-2024 Glucose quantitative blood xcpt reagent strip Ann Reed MD Work Phone: Start: 02-26-2024 Glucose quantitative blood xcpt reagent strip Ann Reed MD Work Phone: Start: 02-26-2024 Manual differential performed [Presence] in Blood Blanche Castillo MD Work Phone: Start: 02-26-2024 End: 02-26-2024 Comprehensive metabolic panel Blanche Castillo MD Work Phone: Start: 02-25-2024 Glucose quantitative blood xcpt reagent strip Ann Reed MD Work Phone: Start: 02-25-2024 Glucose quantitative blood xcpt reagent strip nAn Reed MD Work Phone: Start: 02-25-2024 Culture bacterial qu anttative colony count urine Clare Del iCd MD Work Phone: Start: 02-25-2024 Urinalysis complete panel - Urine Jose Lynn MD Work Phone: Start: 02-25-2024 Glucose quantitative blood xcpt reagent strip Ann Reed MD Work Phone: Start: 02-25-2024 Glucose quantitative blood xcpt reagent strip Blanche Castillo MD Work Phone: Start: 02-25-2024 Comprehensive metabolic panel Blanche Castillo MD Work Phone: Start: 02-24-2024 Glucose quantitative blood xcpt reagent strip Blanche Castillo MD Work Phone: Start: 02-24-2024 Glucose quantitative blood xcpt reagent strip Blanche Castillo MD Work Phone: Start: 02-24-2024 Glucose quantitative blood xcpt reagent strip Blanche Castillo MD Work Phone: Start: 02-24-2024 Glucose quantitative blood xcpt reagent strip Blanche Castillo MD Work Phone: Start: 02-24-2024 Comprehensive metabolic panel Shmuel Trevino MD Work Phone: Start: 02-23-2024 Glucose quantitative blood xcpt reagent strip Shmuel Trevino MD Work Phone: Start: 02-23-2024 Glucose quantitative blood xcpt reagent strip Shmuel Trevino MD Work Phone: Start: 02-23-2024 Glucose quantitative blood xcpt reagent strip Shmuel Trevino MD Work Phone: Start: 02-23-2024 POCT GLUCOSE METER UNSOLICITED RESULTS Shmuel Trevino MD Work Phone: Start: 02-23-2024 Glucose quantitative blood xcpt reagent strip Clare Del Cid MD Work Phone: Start: 02-23-2024 End: 02-23-2024 Bacteria identified in Blood by Culture Clare Del Cid MD Work Phone: Start: 02-23-2024 Comprehensive metabolic panel Clare Del Cid MD Work Phone: Start: 02-22-2024 End: 02-22-2024 Glucose quantitative blood xcpt reagent strip Clare Del Cid MD Work Phone: Start: 02-22-2024 Us retroperitoneal r eal time w/image complete Clare Del Cid MD Work Phone: Start: 02-22-2024 Glucose quantitative blood xcpt reagent strip Clare Del Cid MD Work Phone: Start: 02-22-2024 Glucose quantitative blood xcpt reagent strip Clare Del Cid MD Work Phone: Start: 02-22-2024 Glucose quantitative blood xcpt reagent strip Clare Del Cid MD Work Phone: Start: 02-22-2024 Comprehensive metabolic panel Shmuel Trevino MD Work Phone: Start: 02-21-2024 Glucose quantitative blood xcpt reagent strip Shmuel Trevino MD Work Phone: Start: 02-21-2024 End: 02-21-2024 Assay of troponin quantitative Serge Stewart MD Work Phone: Start: 02-21-2024 Culture bacterial qu anttative colony count urine Serge Stewart MD Work Phone: Start: 02-21-2024 Urinalysis complete panel - Urine Serge Stewart MD Work Phone: Start: 02-21-2024 Assay of troponin quantitative Serge Stewart MD Work Phone: Start: 02-21-2024 Ct angiography chest w/contrast/noncontrast Serge Stewart MD Work Phone: Start: 02-21-2024 Dup-scan xtr veins c omplete bilateral study Serge Stewart MD Work Phone: Start: 02-21-2024 Radiologic exam ches t single view Serge Stewart MD Work Phone: Start: 02-21-2024 Blood gases any comb ination ph pco2 po2 co2 hco3 Serge Stewart MD Work Phone: Start: 02-21-2024 Ct head/brain w/o co ntrast material Serge Stewart MD Work Phone: Start: 02-21-2024 POCT GLUCOSE METER Phillip Stewart MD Work Phone: Start: 02-21-2024 HC SARSCOV2&INF A&B& RSV AMP PRB Serge Stewart MD Work Phone: Start: 02-21-2024 Ecg routine ecg w/le ast 12 lds trcg only w/o i&r Serge Stewart MD Work Phone: Start: 02-21-2024 Bacteria identified in Blood by Culture Serge Stewart MD Work Phone: Start: 02-21-2024 End: 02-21-2024 Comprehensive metabolic panel Serge bhatti MD Work Phone: Start: 02-21-2024 HC CUL TYP ID BLD PT HGN 6+ TRGT Serge Stewart MD Work Phone: Start: 12-10-2023 Urine culture Start: 07-16-2023 Urine culture Start: 06-29-2023 Urine culture Start: 05-21-2023 Urine culture Start: 01-02-2023 Electrocardiogram AGUSTIN BARAHONA Start: 10-15-2022 Electrocardiogram AGUSTIN JUN Start: 08-23-2022 Echocardiography AGUSTIN JUN Start: 06-23-2022 Hemoglobin A1c/Hemoglobin.total in Blood Agustin Mondragon Jun [employer] Work Phone: Start: 06-23-2022 Adult depression scr eening assessment Agustin Jun [employer]JO[employer] Work Phone: Start: 05-06-2022 Blood count complete auto&auto difrntl wbc Rob Lai MD Work Phone: Start: 05-06-2022 Manual Differential panel - Blood Rob Lai MD Work Phone: Start: 05-05-2022 Blood count complete auto&auto difrntl wbc Rob Lai MD Work Phone: Start: 05-05-2022 Manual Differential panel - Blood Rob Lai MD Work Phone: Start: 05-04-2022 Blood count complete auto&auto difrntl wbc Rob Lai MD Work Phone: Start: 05-04-2022 Manual Differential panel - Blood Rob Lai MD Work Phone: Start: 05-03-2022 Gluc bld gluc mntr d ev cleared fda spec home use Rob Lai MD Work Phone: Start: 05-03-2022 Gluc bld gluc mntr d ev cleared fda spec home use Rob Lai MD Work Phone: Start: 05-03-2022 Gluc bld gluc mntr d ev cleared fda spec home use Rob Lai MD Work Phone: Start: 05-03-2022 Blood count complete auto&auto difrntl wbc Rob Lai MD Work Phone: Start: 05-03-2022 Manual Differential panel - Blood Rob Lai MD Work Phone: Start: 05-02-2022 Drug screen quantita tive vancomycin Rob Lai MD Work Phone: Start: 05-02-2022 End: 05-02-2022 Gluc bld gluc mntr dev cleared fda spec home use Rob Lai MD Work Phone: Start: 05-02-2022 Gluc bld gluc mntr d ev cleared fda spec home use Gigi Diehl MD Work Phone: Start: 05-02-2022 Gluc bld gluc mntr d ev cleared fda spec home use Rob Lai MD Work Phone: Start: 05-02-2022 Us retroperitoneal r eal time w/image complete Hema Carl [employer] Work Phone: Start: 05-02-2022 Gluc bld gluc mntr d ev cleared fda spec home use Gigi Diehl MD Work Phone: Start: 05-02-2022 Blood count complete auto&auto difrntl wbc Rob Lai MD Work Phone: Start: 05-02-2022 Manual Differential panel - Blood Rob Lai MD Work Phone: Start: 05-01-2022 Gluc bld gluc mntr d ev cleared fda spec home use Rob Lai MD Work Phone: Start: 05-01-2022 Gluc bld gluc mntr d ev cleared fda spec home use Gigi Diehl MD Work Phone: Start: 05-01-2022 Assay of urine sodium M efrain Carl [employer] Work Phone: Start: 05-01-2022 Gluc bld gluc mntr d ev cleared fda spec home use Gigi Diehl MD Work Phone: Start: 05-01-2022 Gluc bld gluc mntr d ev cleared fda spec home use Rob Lai MD Work Phone: Start: 05-01-2022 Blood count complete auto&auto difrntl wbc Rob Lai MD Work Phone: Start: 05-01-2022 LACTATE, SEPSIS Rob Lai MD Work Phone: Start: 05-01-2022 Blood count complete auto&auto difrntl wbc Rob Lai MD Work Phone: Start: 05-01-2022 LACTATE, SEPSIS Rob Lai MD Work Phone: Start: 04-30-2022 ADD ON LAB TEST Rob Lai MD Work Phone: Start: 04-30-2022 Gluc bld gluc mntr d ev cleared fda spec home use Rob Lai MD Work Phone: Start: 04-30-2022 Culture bacterial bl ood aerobic w/id isolates Gigi Diehl MD Work Phone: Start: 04-30-2022 CULTURE, BLOOD 1 Keyana Diehl MD Work Phone: Start: 04-30-2022 Gluc bld gluc mntr d ev cleared fda spec home use Gigi Diehl MD Work Phone: Start: 04-30-2022 Ecg routine ecg w/le ast 12 lds w/i&r Gigi Diehl MD Work Phone: Start: 04-30-2022 COVID-19, FLU A/B, A ND RSV COMBO Gigi Diehl MD Work Phone: Start: 04-30-2022 Culture bacterial qu anttative colony count urine Gigi Diehl MD Work Phone: Start: 04-30-2022 Urnls dip stick/tabl et rgnt auto w/o microscopy Gigi Diehl MD Work Phone: Start: 04-30-2022 End: 04-30-2022 Comprehensive metabolic panel Gigi Diehl MD Work Phone: Start: 04-30-2022 LACTATE, SEPSIS Kimberlee Diehl MD Work Phone: Start: 04-30-2022 Radiologic exam ches t single view Gigi Diehl MD Work Phone: Start: 10-11-2021 End: 10-11-2021 Gluc bld gluc mntr dev cleared fda spec home use Darius Knutson MD Work Phone: Start: 10-11-2021 BASIC METABOLIC PANE L W/ REFLEX TO MG FOR LOW K Duyen Paz [facility] Work Phone: Start: 10-11-2021 Manual Differential panel - Blood Duyen Paz [facility] Work Phone: Start: 10-10-2021 Gluc bld gluc mntr d ev cleared fda spec home use Darius Knutson MD Work Phone: Start: 10-10-2021 Gluc bld gluc mntr d ev cleared fda spec home use Darius Knutson MD Work Phone: Start: 10-10-2021 Gluc bld gluc mntr d ev cleared fda spec home use Darius Knutson MD Work Phone: Start: 10-10-2021 Gluc bld gluc mntr d ev cleared fda spec home use Darius Knutson MD Work Phone: Start: 10-10-2021 BASIC METABOLIC PANE L W/ REFLEX TO MG FOR LOW K Duyen Paz [facility] Work Phone: Start: 10-10-2021 Blood count complete auto&auto difrntl wbc Duyen Paz [facility] Work Phone: Start: 10-10-2021 Manual Differential panel - Blood Duyen Paz [facility] Work Phone: Start: 10-09-2021 Gluc bld gluc mntr d ev cleared fda spec home use Darius Knutson MD Work Phone: Start: 10-09-2021 Gluc bld gluc mntr d ev cleared fda spec home use Darius Knutson MD Work Phone: Start: 10-09-2021 Gluc bld gluc mntr d ev cleared fda spec home use Darius Knutson MD Work Phone: Start: 10-09-2021 End: 10-09-2021 Gluc bld gluc mntr dev cleared fda spec home use Darius Knutson MD Work Phone: Start: 10-09-2021 BASIC METABOLIC PANE L W/ REFLEX TO MG FOR LOW K Duyen Paz [employer] Work Phone: Start: 10-09-2021 Manual Differential panel - Blood Duyen Paz [employer] Work Phone: Start: 10-09-2021 Gluc bld gluc mntr d ev cleared fda spec home use Darius Knutson MD Work Phone: Start: 10-08-2021 Gluc bld gluc mntr d ev cleared fda spec home use Darius Knutson MD Work Phone: Start: 10-08-2021 Gluc bld gluc mntr d ev cleared fda spec home use Darius Knutson MD Work Phone: Start: 10-08-2021 Gluc bld gluc mntr d ev cleared fda spec home use Quique Aranda MD Work Phone: Start: 10-08-2021 Gluc bld gluc mntr d ev cleared fda spec home use Darius Knutson MD Work Phone: Start: 10-08-2021 ADD ON LAB TEST Elis Roth MD Work Phone: Start: 10-08-2021 Assay of thyroid sti mulating hormone tsh Duyen Paz [employer] Work Phone: Start: 10-08-2021 BASIC METABOLIC PANE L W/ REFLEX TO MG FOR LOW K Duyen N Jackson [employer] Work Phone: Start: 10-08-2021 Manual Differential panel - Blood Duyen Paz [employer] Work Phone: Start: 10-07-2021 Gluc bld gluc mntr d ev cleared fda spec home use Darius Knutson MD Work Phone: Start: 10-07-2021 Chloride urine Hema Carl [facility] Work Phone: Start: 10-07-2021 Urine albumin quantitative Harish Chavis MD Work Phone: Start: 10-07-2021 Gluc bld gluc mntr d ev cleared fda spec home use Quique Aranda MD Work Phone: Start: 10-07-2021 Pulmonary perfusion imaging particulate Saniya Oshea [facility] Work Phone: Start: 10-07-2021 Radiologic exam chest 2 views Saniya Oshea [facility] Work Phone: Start: 10-07-2021 Gluc bld gluc mntr d ev cleared fda spec home use Darius Knutson MD Work Phone: Start: 10-07-2021 Gluc bld gluc mntr d ev cleared fda spec home use Darius Knutson MD Work Phone: Start: 10-07-2021 BASIC METABOLIC PANE L W/ REFLEX TO MG FOR LOW K Duyen Paz [employer] Work Phone: Start: 10-07-2021 Blood count complete auto&auto difrntl wbc Duyen Paz [employer] Work Phone: Start: 10-07-2021 Manual Differential panel - Blood Duyen Paz [employer] Work Phone: Start: 10-06-2021 Dup-scan xtr veins c omplete bilateral study Saniya Oshea [facility] Work Phone: Start: 10-06-2021 End: 10-06-2021 Gluc bld gluc mntr dev cleared fda spec home use Darius Knutson MD Work Phone: Start: 10-06-2021 BASIC METABOLIC PANE L W/ REFLEX TO MG FOR LOW K Duyen N Jackson [employer] Work Phone: Start: 10-06-2021 Manual Differential panel - Blood Duyen Paz [employer] Work Phone: Start: 10-05-2021 Gluc bld gluc mntr d ev cleared fda spec home use Darius Knutson MD Work Phone: Start: 10-05-2021 Gluc bld gluc mntr d ev cleared fda spec home use Darius Knutson MD Work Phone: Start: 10-05-2021 Gluc bld gluc mntr d ev cleared fda spec home use Darius Knutson MD Work Phone: Start: 10-05-2021 End: 10-05-2021 Potassium serum plasma/whole blood Duyen N Jackson [employer] Work Phone: Start: 10-05-2021 BASIC METABOLIC PANE L W/ REFLEX TO MG FOR LOW K Duyen N [place] [employer] Work Phone: Start: 10-05-2021 Blood count complete auto&auto difrntl wbc Duyen N Jackson [employer] Work Phone: Start: 10-04-2021 Gluc bld gluc mntr d ev cleared fda spec home use Darius Knutson MD Work Phone: Start: 10-04-2021 Gluc bld gluc mntr d ev cleared fda spec home use Quique Aranda MD Work Phone: Start: 10-04-2021 End: 10-04-2021 Gluc bld gluc mntr dev cleared fda spec home use Quique Aranda MD Work Phone: Start: 10-04-2021 Gluc bld gluc mntr d ev cleared fda spec home use Darius Knutson MD Work Phone: Start: 10-04-2021 Gluc bld gluc mntr d ev cleared fda spec home use Darius Knutson MD Work Phone: Start: 10-04-2021 BASIC METABOLIC PANE L W/ REFLEX TO MG FOR LOW K Duyenwojciech Paz [employer] Work Phone: Start: 10-04-2021 Natriuretic peptide All wojciech Adenike Paz [employer] Work Phone: Start: 10-03-2021 Gluc bld gluc mntr d ev cleared fda spec home use Darius Knutson MD Work Phone: Start: 10-03-2021 Gluc bld gluc mntr d ev cleared fda spec home use Darius Knutson MD Work Phone: Start: 10-03-2021 Us retroperitoneal r eal time w/image complete Duyen Luver [facility] Work Phone: Start: 10-03-2021 Echo tthrc r-t 2d w/ wom-mode compl spec&colr d Duyen Paz [facility] Work Phone: Start: 10-03-2021 Creatinine other source Duyen Luver [facility] Work Phone: Start: 10-03-2021 Gluc bld gluc mntr d ev cleared fda spec home use Darius Knutson MD Work Phone: Start: 10-03-2021 Gluc bld gluc mntr d ev cleared fda spec home use Darius Knutson MD Work Phone: Start: 10-03-2021 Blood count complete auto&auto difrntl wbc Darius Knutson MD Work Phone: Start: 10-03-2021 LACTATE, SEPSIS Darius Knutson MD Work Phone: Start: 10-02-2021 Gluc bld gluc mntr d ev cleared fda spec home use Darius Knutson MD Work Phone: Start: 10-02-2021 Gluc bld gluc mntr d ev cleared fda spec home use Darius Knutson MD Work Phone: Start: 10-02-2021 POCT ARTERIAL Darius blackburn MD Work Phone: Start: 10-02-2021 Ct abdomen & pelvis w/o contrast material Quique Aranda MD Work Phone: Start: 10-02-2021 Ct head/brain w/o co ntrast material Quique Aranda MD Work Phone: Start: 10-02-2021 Iaad ia mult step me thod nos each organism Duyen aPz [employer] Work Phone: Start: 10-02-2021 STREP PNEUMONIAE ANTIGEN 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 Work Phone: Start: 10-02-2021 Comprehensive metabolic panel Ishaan Woods DO Work Phone: Start: 10-02-2021 Glucose quantitative blood xcpt reagent strip Quique Aranda MD Work Phone: Start: 10-02-2021 LACTATE, SEPSIS Darius Knutson MD Work Phone: Start: 10-02-2021 LACTATE, SEPSIS Quique benjamin MD Work Phone: Start: 10-02-2021 Urnls dip stick/tabl et rgnt auto w/o microscopy Quique Aranda MD Work Phone: Start: 10-02-2021 Culture bacterial bl ood aerobic w/id isolates Quique Aranda MD Work Phone: Start: 10-02-2021 CULTURE, BLOOD 1 Quique Aranda MD Work Phone: Start: 10-02-2021 End: 10-02-2021 Assay of lipase Quique Aranda MD Work Phone: Start: 10-02-2021 COVID-19, FLU A/B, A ND RSV COMBO Quique Aranda MD Work Phone: Start: 10-02-2021 LACTATE, SEPSIS Quique benjamin MD Work Phone: Start: 10-02-2021 Ecg routine ecg w/le ast 12 lds w/i&r Quique Aranda MD Work Phone: Start: 10-02-2021 Radiologic exam ches t single view Quique Aranda MD Work Phone: Start: 06-21-2021 Adult depression scr eening assessment Nurse 2 Urine culture Urine culture Plan of Treatment Date Care Activity Detail Author Start: 09-27-2026 DTaP/Tdap/Td vaccine (2 - Tdap) DTaP/Tdap/Td vaccine (2 - Tdap) [facility] Start: 09-27-2026 DTaP/Tdap/Td Vaccines (2 - Tdap) DTaP/Tdap/Td Vaccines (2 - Tdap) [facility] Start: 09-27-2026 Urine microalbumin profile DTAP,TDAP,TD (2 - Tdap) [facility] Start: 09-27-2026 [facility] Start: 03-09-2025 Creatinine measurement Creatinine Level [facility] Start: 03-09-2025 Diabetes: Estimated Glomerular Filtration Rate for Kidney Health Diabetes: Estimated Glomerular Filtration Rate for Kidney Health [facility] Start: 03-09-2025 Potassium measurement Potassium Level [facility] Start: 02-27-2025 Creatinine measurement [facility] Start: 02-27-2025 Potassium measurement [facility] Start: 02-21-2025 Hemoglobin A1c measurement [facility] Start: 02-14-2024 HEMOGLOBIN/HEMATOCRIT HEMOGLOBIN/HEMATOCRIT [facility] Start: 02-14-2024 Hepatitis B surface antibody level LDL CHOLESTEROL [facility] Start: 02-14-2024 SERUM CREATININE SERUM CREATININE [facility] Start: 01-29-2024 HEMOGLOBIN/HEMATOCRIT HEMOGLOBIN/HEMATOCRIT [facility] Start: 01-29-2024 SERUM CREATININE SERUM CREATININE [facility] Start: 01-17-2024 SERUM CREATININE SERUM CREATININE [facility] Start: 01-16-2024 HEMOGLOBIN/HEMATOCRIT HEMOGLOBIN/HEMATOCRIT [facility] Start: 01-16-2024 SERUM CREATININE SERUM CREATININE [facility] Start: 01-03-2024 HEMOGLOBIN/HEMATOCRIT HEMOGLOBIN/HEMATOCRIT [facility] Start: 01-03-2024 SERUM CREATININE SERUM CREATININE [facility] Start: 11-10-2023 HEMOGLOBIN/HEMATOCRIT HEMOGLOBIN/HEMATOCRIT [facility] Start: 11-09-2023 SERUM CREATININE SERUM CREATININE [facility] Start: 10-24-2023 HEMOGLOBIN/HEMATOCRIT HEMOGLOBIN/HEMATOCRIT [facility] Start: 10-24-2023 SERUM CREATININE SERUM CREATININE [facility] Start: 09-29-2023 ANNUAL PCP TEAM CHRONIC DISEASE VISIT ANNUAL PCP TEAM CHRONIC DISEASE VISIT [facility] Start: 08-27-2023 SERUM CREATININE SERUM CREATININE [facility] Start: 08-26-2023 SERUM CREATININE SERUM CREATININE [facility] Start: 08-25-2023 HEMOGLOBIN/HEMATOCRIT HEMOGLOBIN/HEMATOCRIT [facility] Start: 08-24-2023 Hepatitis B screening URINE ALBUMIN:CREATININE RATIO [facility] Start: 08-23-2023 HEMOGLOBIN/HEMATOCRIT HEMOGLOBIN/HEMATOCRIT [facility] Start: 08-23-2023 SERUM CREATININE SERUM CREATININE [facility] Start: 2023 ANNUAL PCP TEAM CHRONIC DISEASE VISIT ANNUAL PCP TEAM CHRONIC DISEASE VISIT [facility] Start: 2023 BP CONTROLLED (<130/80) BP CONTROLLED (<130/80) [facility] in Start: 08-15-2023 Hemoglobin A1c/Hemoglobin.total in Blood HBA1C [facility] Start: 08-01-2023 HEMOGLOBIN/HEMATOCRIT HEMOGLOBIN/HEMATOCRIT [facility] Start: 08-01-2023 SERUM CREATININE SERUM CREATININE [facility] Start: 07-19-2023 HEMOGLOBIN/HEMATOCRIT HEMOGLOBIN/HEMATOCRIT [facility] Start: 07-19-2023 SERUM CREATININE SERUM CREATININE [facility] Start: 07-05-2023 ANNUAL PCP TEAM CHRONIC DISEASE VISIT ANNUAL PCP TEAM CHRONIC DISEASE VISIT [facility] Start: 06-29-2023 COVID-19 Vaccine () COVID-19 Vaccine () [facility] Start: 06-29-2023 Influenza vaccination [facility] Start: 06-29-2023 Urine culture Urine Culture [facility] Start: 06-29-2023 [facility] Start: 06-23-2023 Adult depression screening assessment DEPRESSION SCREENING [facility] Start: 06-23-2023 ANNUAL PCP TEAM CHRONIC DISEASE VISIT ANNUAL PCP TEAM CHRONIC DISEASE VISIT [facility] Start: 06-23-2023 BP CONTROLLED (<130/80) BP CONTROLLED (<130/80) [facility] in Start: 06-23-2023 HEMOGLOBIN/HEMATOCRIT HEMOGLOBIN/HEMATOCRIT [facility] Start: 06-23-2023 Hepatitis B surface antibody level LDL CHOLESTEROL [facility] Start: 06-23-2023 SERUM CREATININE SERUM CREATININE [facility] Start: 04-30-2023 HEMOGLOBIN/HEMATOCRIT HEMOGLOBIN/HEMATOCRIT [facility] Start: 04-13-2023 ANNUAL PCP TEAM CHRONIC DISEASE VISIT ANNUAL PCP TEAM CHRONIC DISEASE VISIT [facility] Start: 04-10-2023 HEMOGLOBIN/HEMATOCRIT HEMOGLOBIN/HEMATOCRIT [facility] Start: 04-10-2023 SERUM CREATININE SERUM CREATININE [facility] Start: 03-22-2023 ANNUAL PCP TEAM CHRONIC DISEASE VISIT ANNUAL PCP TEAM CHRONIC DISEASE VISIT [facility] Start: 03-22-2023 BP CONTROLLED (<130/80) BP CONTROLLED (<130/80) [facility] Start: 12-24-2022 Hemoglobin A1c/Hemoglobin.total in Blood HBA1C [facility] Start: 12-19-2022 ANNUAL PCP TEAM CHRONIC DISEASE VISIT ANNUAL PCP TEAM CHRONIC DISEASE VISIT [facility] Start: 10-29-2022 ADVANCE DIRECTIVE DISCUSSION ADVANCE DIRECTIVE DISCUSSION [facility] Start: 10-29-2022 DEPRESSION ASSESSMENT DEPRESSION ASSESSMENT [facility] Start: 10-11-2022 Creatinine measurement [facility] Start: 10-11-2022 [facility] Start: 10-07-2022 Diabetes: Urine Albumin-Creatinine Ratio for Kidney Health Diabetes: Urine Albumin-Creatinine Ratio for Kidney [facility] Start: 10-07-2022 Hepatitis B screening URINE ALBUMIN:CREATININE RATIO [facility] Start: 10-07-2022 Urine screening for protein Diabetic microalbuminuria test [facility] Start: 08-26-2022 BP CONTROLLED (<130/80) BP CONTROLLED (<130/80) [facility] Start: 08-26-2022 Hepatitis B surface antibody level LDL CHOLESTEROL [facility] Start: 08-26-2022 Lipid panel Lipids [facility] Start: 08-26-2022 SERUM CREATININE SERUM CREATININE [facility] Start: 2022 ADVANCE DIRECTIVE DISCUSSION ADVANCE DIRECTIVE DISCUSSION [facility] Start: 2022 BONE DENSITY BONE DENSITY [facility] Start: 07-07-2022 HEMOGLOBIN/HEMATOCRIT HEMOGLOBIN/HEMATOCRIT [facility] Start: 06-29-2022 Influenza vaccination [facility] Start: 06-21-2022 Adult depression screening assessment DEPRESSION SCREENING [facility] Start: 05-23-2022 End: 10-28-2022 Hemoglobin A1c in Blood HGB A1C Lab Routine Type 2 diabetes mellitus with diabetic polyneuropathy, with long-term current use of insulin (HCC) Expected: 05/23/2022 (Approximate), Expires: 10/28/2022 [facility] Work Phone: Comment on above: Expected: 05/23/2022 (Approximate), Expi res: 10/28/2022 Start: 05-14-2022 End: 05-07-2023 Basic metabolic 2000 panel - Serum or Plasma Basic Metabolic Panel Lab Routine Acute kidney injury superimposed on CKD (HCC) Expected: 05/14/2022, Expires: 05/07/2023 [facility] Work Phone: Comment on above: Expected: 05/14/2022, Expires: 3 Start: 03-25-2022 End: 05-25-2022 CBC panel - Blood by Automated count CBC Lab Routine Type 2 diabetes mellitus with diabetic polyneuropathy, with long-term current use of insulin (HCC) Expected: 03/25/2022, Expires: 05/25/2022 [facility] Work Phone: Comment on above: Expected: 03/25/2022, Expires: 2 Start: 03-25-2022 End: 05-25-2022 Comprehensive metabolic 2000 panel - Serum or Plasma COMP METABOLIC PANEL Lab Routine Type 2 diabetes mellitus with diabetic polyneuropathy, with long-term current use of insulin (HCC) Expected: 03/25/2022, Expires: 05/25/2022 [facility] Work Phone: Comment on above: Expected: 03/25/2022, Expires: 2 Start: 03-25-2022 End: 05-25-2022 Hemoglobin A1c/Hemoglobin.total in Blood HGB A1C Lab Routine Type 2 diabetes mellitus with diabetic polyneuropathy, with long-term current use of insulin (HCC) Expected: 03/25/2022, Expires: 05/25/2022 [facility] Work Phone: Comment on above: Expected: 03/25/2022, Expires: 2 Start: 03-25-2022 End: 05-25-2022 LIPID PANEL, NONFASTING LIPID PANEL, NONFASTING Lab Routine Type 2 diabetes mellitus with diabetic polyneuropathy, with long-term current use of insulin (HCC) Expected: 03/25/2022, Expires: 05/25/2022 [facility] Work Phone: Comment on above: Expected: 03/25/2022, Expires: 2 Start: 03-25-2022 End: 05-25-2022 Thyrotropin [Units/volume] in Serum or Plasma TSH BLD Lab Routine Primary hypertension Expected: 03/25/2022, Expires: 05/25/2022 [facility] Work Phone: Comment on above: Expected: 03/25/2022, Expires: 2 Start: 11-26-2021 Hemoglobin A1c/Hemoglobin.total in Blood HBA1C [facility] Start: 11-15-2021 3 comp foot exam completed DIABETIC FOOT EXAM [facility] Start: 10-29-2021 DEPRESSION ASSESSMENT DEPRESSION ASSESSMENT [facility] Start: 10-04-2021 [facility] Start: 06-30-2021 PNEUMOCOCCAL (2 - PCV) PNEUMOCOCCAL (2 - PCV) [facility] Start: 06-30-2021 Pneumococcal 0-64 years Vaccine (2 - PCV) Pneumococcal 0-64 years Vaccine (2 - PCV) [facility] Start: 06-30-2021 PNEUMOCOCCAL: 65+ (2 - PCV) PNEUMOCOCCAL: 65+ (2 - PCV) [facility] Start: 2017 RSV Immunization aged 60 or older (1 - 1-dose 60+ series) RSV Immunization aged 60 or older (1 - 1-dose 60+ series) [facility] Start: 2017 [facility] Start: 2007 Screening for malignant neoplasm of breast [facility] Start: 2007 Shingles vaccine (1 of 2) Shingles vaccine (1 of 2) [facility] Start: 2007 Zoster Vaccines (1 of 2) Zoster Vaccines (1 of 2) [facility] Start: 2007 [facility] Start: 2002 COLOGUARD (FIT-DNA) COLOGUARD (FIT-DNA) [facility] Start: 2002 Colonoscopy COLONOSCOPY [facility] Start: 2002 COLORECTAL CANCER SCREENING COLORECTAL CANCER SCREENING [facility] Start: [address] COLONOGRAPHY [facility] Start: 2002 FECAL OCCULT BLOOD FECAL OCCULT BLOOD [facility] Start: 2002 Screening for malignant neoplasm of colon [facility] Start: 2002 SIGMOIDOSCOPY SIGMOIDOSCOPY [facility] Start: 1997 Mammography MAMMOGRAM [facility] Start: 1997 Screening for malignant neoplasm of breast [facility] Start: 1992 [facility] Start: 1987 Screening for malignant neoplasm of cervix [facility] Start: 1987 Zoledronic acid therapy ALPHA-1 ANTITRYPSIN DEFICIENCY SCREENING [facility] Start: 1978 Screening for malignant neoplasm of cervix [facility] Start: 1975 Diabetic retinal exam Diabetic retinal exam [facility] Start: 1975 Hepatitis C screening [facility] Start: 1972 HIV screening [facility] Start: 1969 Depression Monitoring Depression Monitoring [facility] Start: 1969 Depression Screen Depression Screen [facility] Start: 1969 [facility] Start: 1967 Diabetic foot examination [facility] Start: 1967 Glaucoma screening [facility] Start: 1967 Hemoglobin A1c measurement A1C test (Diabetic or Prediabetic) [facility] Start: 1967 Hepatitis C antibody, confirmatory test DILATED RETINAL EXAM [facility] Start: 1967 Lipid panel [facility] Start: 1967 Preventive dental service [facility] Start: 1962 COVID-19 Vaccine (1) COVID-19 Vaccine (1) [facility] Start: 1957 Annual Wellness Visit (AWV) Annual Wellness Visit (AWV) [facility] Start: 1957 Echocardiography Echocardiogram [facility] Start: 1957 Hepatitis C screening [facility] Start: 1957 Lipid panel [facility] Start: 1957 Medicare Annual Wellness (AWV) Medicare Annual Wellness (AWV) [facility] Start: 1957 Screening for malignant neoplasm of colon [facility] Start: 1957 Screening for osteoporosis [facility] Start: 1957 [facility] Bacteria identified in Blood by Culture [facility] [employer] Work Phone: End: 05-07-2022 Basic metabolic 2000 panel - Serum or Plasma Basic Metabolic Panel Lab Routine One Time for 1 Occurrences starting 05/07/2022 until 05/07/2022 [employer] Work Phone: Comment on above: One Time for 1 Occurrences starting 04/28 until 05/07/2022 Basic Metabolic Pane l w/ Reflex to MG [employer] Work Phone: End: 02-21-2024 Blood gases, venous measurement [facility] [employer] Work Phone: CBC W Auto Different ial panel - Blood [facility] Work Phone: CBC W Auto Different ial panel - Blood [employer] Work Phone: Comment on above: Daily until discontinued starting 2021, 6 completed Comprehensive Metabo lic Panel w/ Reflex to MG Comprehensive Metabolic Panel w/ Reflex to MG Lab Routine Daily until discontinued starting 05/01/2022, 6 completed [employer] Work Phone: Comment on above: Daily until discontinued starting 2021, 6 completed End: 04-30-2022 Culture, Blood 1 [facility] Work Phone: Comment on above: One Time for 1 Occurrences starting 12/2021 until 04/30/2022 End: 04-30-2022 Culture, Blood 2 [facility] Work Phone: Comment on above: One Time for 1 Occurrences starting 12/2021 until 04/30/2022 End: 10-02-2021 Culture, Respiratory [employer] Work Phone: End: 09-15-2023 Dup-scan xtr veins complete bilateral study US DVT LOWER BILAT Radiology [facility] Leg swelling 1 Occurrences starting 2022 until 09/15/2023 [facility] Work Phone: Comment on above: 1 Occurrences starting 2022 until 09/15/2023 End: 09-01-2023 Dup-scan xtr veins complete bilateral study US DVT LOWER BILAT Radiology Routine Bilateral leg edema 1 Occurrences starting 08/02/2022 until 09/01/2023 [facility] Work Phone: Comment on above: 1 Occurrences starting 08/02/2022 until 09/01/2023 Glucose [Mass/volume ] in Serum or Plasma [employer] Work Phone: Glucose [Mass/volume ] in Serum or Plasma [employer] Work Phone: Glucose [Mass/volume ] in Serum or Plasma [employer] Work Phone: Comment on above: As Needed until discontinued starting 4X Daily (AC & HS) u ntil discontinued starting 04/30/2022 Hemoglobin A1c/Hemoglobin.total in Blood HEMOGLOBIN A1C (POC) Lab Routine Type 2 diabetes mellitus with diabetic polyneuropathy, with long-term current use of insulin (HCC) Ordered: 06/23/2022 [facility] Work Phone: Comment on above: Ordered: 06/23/2022 End: 04-30-2022 Lactate, Sepsis [facility] Work Phone: Comment on above: Now Then Every 2hr for 2 Occurrences sta rting 04/30/2022 until 04/30/2022, 1 completed End: 10-02-2021 Microscopic observation [Identifier] in Unspecified specimen by Gram stain [employer] Work Phone: Oxygen therapy [Mini mum Data Set] [employer] Work Phone: Oxygen therapy [Mini mum Data Set] [employer] Work Phone: Oxygen therapy [Mini mum Data Set] Initiate Oxygen Therapy Protocol Respiratory Care Routine As Needed until discontinued starting 04/30/2022 [employer] Work Phone: Comment on above: As Needed until discontinued starting End: 07-23-2023 PAP TITRATION PSG (CPAP, BIPAP, ASV) PAP TITRATION PSG (CPAP, BIPAP, ASV) Procedures Routine DIYA (obstructive sleep apnea) 1 Occurrences starting 06/23/2022 until 07/23/2023 [facility] Work Phone: Comment on above: 1 Occurrences starting 06/23/2022 until 07/23/2023 End: 10-07-2021 Urinalysis with Microscopic [facility] Work Phone: End: 10-03-2021 Wound ostomy eval and treat [facility] Work Phone: [facility] Immunizations Immunization Date Immunization Notes Care Provider Elizabeth perrin 08-26-2021 influenza, injectabl e, quadrivalent, contains preservative Nurse 2 [facility] 09-06-2020 influenza, high dose seasonal, preservative-free Nurse 2 [facility] 06-30-2020 influenza, injectabl e, quadrivalent, preservative free Nurse 2 [facility] 06-30-2020 pneumococcal polysac charide vaccine, 23 valent Nurse 2 [facility] 09-27-2016 diphtheria, tetanus toxoids and acellular pertussis vaccine Nurse 2 [facility] Payers Date Payer Category Payer Self-pay 2021 [place] [id number] 2021-Present [phone] [address] [place] [address] Medicaid [id number] 2021 Medicaid [id number] 2021 Medicare [facility] MEDICARE [facility] DUAL COMPLETE HMO SNP [id number] 2021-Present [phone] [address] [place] [address] Medicare [id number] 2021 Unknown [id number] 2021 Medicare [id number] 2020 Medicaid [id number] 2014 Medicare [id number] 2014 Medicare [id number] Unknown [id number] Unknown [id number] Unknown [id number] Unknown [id number] Unknown [id number] Unknown [id number] Unknown [id number] Unknown [id number] Unknown [id number] Unknown [id number] Unknown [id number] Unknown [id number] Unknown [id number] Unknown [id number] Unknown [id number] Social History Date Type Detail Facility Start: 10-02-2021 End: 06-23-2022 Tobacco smoking status RIIS Ex-smoker [facility] Work Phone: Start: 10-02-2021 End: 06-23-2022 Tobacco use and exposure Smokeless tobacco non-user [facility] Work Phone: Start: 1955 Sex Assigned At [facility] Work Phone: End: 08-29-2011 History of tobacco use Current smoker [facility] Work Phone: End: 08-29-2011 History of tobacco use Cigarette Smoker [facility] Work Phone: Start: 12-19-2021 End: 02-11-2023 Alcohol intake Lifetime non-drinker (finding) [facility] Start: 10-10-2020 End: 11-11-2022 History SDOH Alcohol Frequency 1 [facility] Start: 01-08-2022 End: 09-29-2022 Exposure to SARS-CoV-2 (event) Unable to assess [facility] Start: 02-17-2022 End: 08-22-2022 Exposure to SARS-CoV-2 (event) Not sure [facility] Start: 11-11-2022 End: 02-13-2023 History SDOH Financial 5 [facility] Start: 11-11-2022 End: 02-13-2023 History SDOH Transport Med 2 [facility] Start: 1955 Sex Assigned At Female [facility] Start: 02-11-2023 End: 03-06-2024 History of Social function [facility] Work Phone: Start: 02-11-2023 End: 03-06-2024 Tobacco use panel [facility] Work Phone: How hard is it for y ou to pay for the very basics like food, housing, medical care, and heating Not hard at all [facility] Work Phone: (I/We) worried arya er (my/our) food would run out before (I/we) got money to buy more. Never true [facility] Work Phone: In the past 12 month s, was there a time when you were not able to pay the mortgage or rent on time? No [facility] Work Phone: How often to you hav e a drink containing alcohol? Never [facility] Start: 03-06-2024 Alcohol intake Ex-drinker (finding) [employer] [facility] Work Phone: Start: 01-02-2025 End: 02-05-2025 Sex Female (finding) [facility] Medical Equipment Procedure Code Equipment Code Equipment Original Text Equipment Identifier Dates Start: 07-20-2021 End: 11-14-2022 Comment on above: Use as directed to c heck blood sugar 3 times daily, insulin: yes, E11.9 Use as directed to i nject insulin 5 times daily as directed. insulin: yes, E11.42 Use as instructed to check blood sugar 4 times daily. insulin: yes, E11.42 Use as directed to c heck your blood sugar 4 times daily. insulin: yes, E11.42 Use as directed to c heck blood sugar 4 times daily, insulin: yes, E11.42 Clinical Notes 10-11-2021 to 03-09-2024 Care Coordination - Unknown Case Management - 03/09/2024 10:38 AM [facility]are Coordination - David Stevens RN - 03/09/2024 7:48 AM [facility] Coordination - David Stevens RN - 03/08/2024 9:09 AM EDT Note Date & Type Note Facility 03-09-2024 Miscellaneous Notes Next Site of Care Admission Date: 03/05/2024 07:08 PM Patient Name: KIMBERLY PATEL Location: [address]/[facility] [id number] Date of : 1955 Placement Information Referral Type:Skilled Nursing ICF - Return Referral ID:[id number] Provider Name:[facility] Address 1:[address] [place] [address] Address 2: City:[place] Selection Factors:Returning to Facility State:[place] Care Coordination Daily Note/Update Clinical Update: active discharge orders Discharge Plan: return to [facility] Discharge Barriers: none Chart reviewed. Received message from attending stating patient is cleared for discharge. Discharge orders in. ANN and med rec complete. Submitted ride request via [employer] - awaiting acceptance and confirmation. Received notification that cot transportation has been setup for 1000 with [employer]. Phoned patient's daughter, Alexandro Cote, at [phone]. Received VM identifying full name. LM to notify of patient discharge and transport time. Notified RN. RN will notify patient. Messaged facility via [employer] to notify. Sent AVS and MAR to facility via [employer]. TCC will remain available for any additional discharge needs. Care Coordination Daily Note/Update Clinical Update: blood cultures from 03/07 resulted as normal this AM so, per 03/07 ID note, no further antimicrobial treatment is needed. No leukocytosis per this morning's labs. Discharge Plan: return to [facility] Discharge Barriers: clinical stability Chart reviewed. Messaged attending to check on clinical stability for discharge. Awaiting response back. Received response back stating, further discussion with ID yesterday they were recommending negative cultures x72 hours, so patient will not be discharged today. if labs are stable tomorrow, plan for discharge tomorrow. TCC will continue to follow. Per Dr. Talamantes's note, anticipated dc is for 03/08/24. Pt transport is set in WILL CALL with [employer] for 03/08/24. Images from the original note were not included. Care Management Progress Note Repeat blood cultures this am. Urine culture in process. Monitor off iv antibiotics. [facility]. [facility] is [facility]. . Discharge Milestones and Delays Expected Date/Time: 03/09/[address] discharge order Complete med reconciliation Case mgmt discharge readiness Clinical Stability Diagnsotic Workup Expected Discharge History Expected Date/Time Set By Reviewed At 03/09/2024 Eboni Fletcher MD 03/06/2024 1:18 PM 03/08/2024 Eboni Fletcher MD 03/06/2024 7:05 AM 03/06/2024 Janie Cortez MD 03/05/2024 11:00 PM Length of Stay (Days): 1 GMLOS: 3.4 Referral placed to [facility] for return via Careport per TCC request. Await review and response regarding ability to accept. TCC notified. Care Managment Initial Assessment Date: 03/06/2024 Patient Name: Kimberly Patel : 1955 Patient Information Source of Information: (recent assessment 02/22/24) Name/Contact Information: ALEXANDRO COTE [phone] DAUGHTER Cognition/Language: Confused at baseline Permission given to speak with patient commissary representative/caregiver as indicated: Yes Confirmation of Payer with patient/family: Yes Payer Name: MEDICARE AND [facility] MEDICAID : No Confirmation of Primary Care Physician: Confirmed PCP Name: DR. QUICK Seen in last 2 years?: Yes Primary Caregiver: Other (Comment) If assistance needed, confirmed caregiver ready, willing and able to care for patient at discharge: Yes Confirmed with: STAFF AT [facility] Living Arrangements Current Residence: ([facility]) Number of Floors 1 Number of Entry Steps: (LEVEL ENTRY) Bed/Bath Levels: Both first floor Facility: [facility]illed Nursing[facility] Facility Name: [facility] Plan to Return: Yes Lives with: Other (Comment) (F) Support Systems: Children, Comments (Other) ([facility] STAFF) Activities of Daily Living Ambulation: Total Care Bathing/Dressing: Total Care Elimination/Continence/Toileting : Total Care Feeding: asst .set up Who Assists with Activities of Daily Living: F STAFF Instrumental Activities of Daily Living Prescription Coverage: Yes Pharmacy Used: [facility] STAFF Medication Management: Medication dispenser Who assists with medication securing and setup?: [facility] Transportation/Shopping: Assistance Provider Transportation/Shopping Assistance Provider Name: PAYOR PROVIDED TRANSPORT Transportation Mode: Payer provided transport service Needs Assistance with Transportation at Discharge: Yes Meal Preparation: Assistance Provider Meal Prep Assistance Provider Name: [facility] Laundry/Cleaning: Assistance Provider Laundry/Cleaning Assistance Provider Name: [facility] Finances/Bill Paying: Assistance Provider Finances/Bill Payer Assistance Provider Name: DAUGHTER Communication: Independent, Emergency Call System Types of Care Services/Equipment Utilized Care Services: Dialysis Type: NA Durable Medical Equipment: Mohamud Lift, Hospital Bed, oxygen, Patient's Goal/Discharge Plan Patient expects to be discharged to: RETURN TO [facility] Discharge Planning Actions: Continue to follow Patient's Choice Rights and [employer] and Collaborative Relationships Disclosed as Indicated for Post-Acute Care: NA Interdisciplinary Team Engagement: Social Work Referral for: Additional Information: Inpatient status from [facility] with altered mental status. Recent hospitalization for UTI and is receiving [facility]. ID consulted. Repeat blood culture in am, bs ac and hs with ss coverage, daily labs, us of right upper ext negative for DVT. Anny call and speak with nurse Jenna at [facility] patient is mohamud lift at facility, is able to feed herself, takes pills in applesauce, is diabetic and ss coverage. She believes patient requires oxygen at the facility. Patient is [facility] at facility and Jenna believes has been there for about a year. Tentative discharge plan is to return to facility when medically stable. Did speak with patient's daughter Alexandro and she is agreeable with patient returning to [facility] when medically stable. . Vanessa Vu RN Tasked LEGAL RECORDS MANAGER to place referral in careport to return to [facility] under ICF level of care. . documented in this encounter [facility] 03-09-2024 Note Formatting of this n ote might be different from the original. Next Site of Care Admission Date: 03/05/2024 07:08 PM Patient Name: KIMBERLY PATEL Location: [address]/[facility] [id number] A Date of : 1955 Placement Information Referral Type:Skilled Nursing ICF - Return Referral ID:[id number] Provider Name:Katia Lopez [facility] Address 1:[address] Address 2: City:[place] Selection Factors:Returning to Facility State:[place] [facility] 03-09-2024 Note Formatting of this n ote might be different from the original. Next Site of Care Admission Date: 03/05/2024 07:08 PM Patient Name: KIMBERLY PATEL Location: [address]/[facility] [id number] A Date of : 1955 Placement Information Referral Type:Skilled Nursing ICF - Return Referral ID:[id number] Provider Name:Katia Lopez [facility] Address 1:[address] [facility] Address 2: City:[place] Selection Factors:Returning to Facility State:[place] [facility] 03-09-2024 Note Formatting of this n ote might be different from the original. Care Coordination Daily Note/Update Clinical Update: active discharge orders Discharge Plan: return to [facility] Discharge Barriers: none Chart reviewed. Received message from attending stating patient is cleared for discharge. Discharge orders in. ANN and med rec complete. Submitted ride request via [employer] - awaiting acceptance and confirmation. Received notification that cot transportation has been setup for 1000 with [facility]. Phoned patient's daughter, Alexandro Cote, at [phone]. Received VM identifying full name. LM to notify of patient discharge and transport time. Notified RN. RN will notify patient. Messaged facility via CarePort to notify. Sent AVS and MAR to facility via CarePort. TCC will remain available for any additional discharge needs. [facility] 03-09-2024 Note Formatting of this n ote might be different from the original. Care Coordination Daily Note/Update Clinical Update: active discharge orders Discharge Plan: return to [facility] Discharge Barriers: none Chart reviewed. Received message from attending stating patient is cleared for discharge. Discharge orders in. ANN and med rec complete. Submitted ride request via [employer] - awaiting acceptance and confirmation. Received notification that cot transportation has been setup for 1000 with [facility]. Phoned patient's daughter, Alexandro Cote, at [phone]. Received VM identifying full name. LM to notify of patient discharge and transport time. Notified RN. RN will notify patient. Messaged facility via CarePort to notify. Sent AVS and MAR to facility via CarePort. TCC will remain available for any additional discharge needs. [facility] 03-09-2024 Note Hospitalist Discharg e Summary Kimberly Patel : 1955 Admit date: 03/05/2024 Discharge date: 03/09/2024 Admitting Physician: Eboni Fletcher MD Primary Care Physician: Lucy Quick Visit Status: admission Code Status: Full Code Discharge Diagnoses: Acute metabolic encephalopathy Waxing and waning mentation Recent enterococcus faecalis UTI and bacteremia Malfunctioning PICC CKD stage 3 DM type 2 with hyperglycemia HX of COPD Chronic hypoxic respiratory failure CAD HLD Anxiety/depression HFpEF Hospital Course: patient was reported to be hallucinating at SNF where she was getting IV abx through PICC for multidrug resistant enterococcus faecalis UTI with bacteremia. Abx were to be completed on 03/08/24. CT head negative, mentation returned to baseline. Repeat BC negative, patient evaluated by ID, deemed mentation changes to be 2/2 recent abx usage. Repeat blood cultures remained negative. Patient labs and vitals otherwise sable. Patient cleared by ID for discharge, ok to remove PICC and discontinue abx going forward. Patient discharged back to SNF in stable condition on 03/09/24. She is to follow up with PCP outpatient in 1-2 weeks. Consults: IP CONSULT TO INFECTIOUS DISEASES Discharge Instructions: Diet: Adult diet Regular Activity: as tolerated Recommended Outpatient Tests: Disposition: Patient discharged in stable condition to home. LABS: CBC: Recent Labs 03/07/2422603/08/24 0132 03/09/24 0605 WBC 8.1 6.9 6.3 RBC 2.90* 2.91* 2.69* HGB 8.4* 8.3* 7.9* HCT 26.5* 27.5* 25.7* MCV 91.4 94.5 95.5 RDW 16.8* 17.2* 17.4* PLT 312 298 256 BMP: Recent Labs 03/07/2422603/08/24 0132 03/09/24 0605 NA 137 138 138 K 4.0 4.2 4.6 CL 106 108* 108* CO2 27 29 26 BUN 21* 23* 26* CREATININE 1.12* 1.24* 1.22* GLUCOSE 75 75 147* CALCIUM 8.7 8.4 7.8* ANIONGAP 5 1* 5 LIVER PROFILE: Recent Labs 03/08/24 0132 03/09/24 0605 AST 24 17 ALT 21 18 BILITOT 0.3 0.3 ALKPHOS 86 82 PROT 5.2* 4.8* PT/INR: No results for input(s): PROTIME, INR in the last 72 hours. CARDIAC ENZYMES: No results for input(s): TROPONINI in the last 72 hours. Procalcitonin: No results found for: PROCAL COVID-19 PCR: No results for input(s): COVID19 in the last 72 hours. Vitals: BP 101/53 (BP Location: Left arm, Patient Position: Lying) Pulse 85 Temp 36.2 ?C (97.2 ?F) (Temporal) Resp 16 SpO2 100% Pulse Ox: SpO2 Av % Min: 94 % Max: 100 % Supplemental O2: O2 Flow Rate (L/min): 4 L/min General appearance: No apparent distress, appears stated age and cooperative with exam, obese female in NAD Respiratory: diminished, no wheezing. Cardiovascular: Regular rate and rhythm with no murmur Abdomen: Soft, non-tender, non-distended Skin: Skin color, texture, turgor normal. No rashes or lesions. Distal pulses intact in BL LE, trace BL LE edema present. Neurologic: grossly non-focal. Discharge Medications: Medication List CONTINUE taking these medications acetaminophen 325 MG tablet Commonly known as: Tylenol * albuterol 108 (90 Base) MCG/ACT inhaler * albuterol (2.5 MG/3ML) 0.083% nebulizer solution aspirin 81 MG EC tablet atorvastatin 40 MG tablet Commonly known as: Lipitor * bisacodyl 10 MG/30ML enema Commonly known as: Fleet Bisacodyl * bisacodyl 5 MG EC tablet Commonly known as: Dulcolax budesonide-formoterol 160-4.5 MCG/ACT inhaler Commonly known as: Symbicort calcium carbonate 500 MG chewable tablet Commonly known as: Tums clobetasol 0.05 % cream Commonly known as: Temovate cyanocobalamin 1000 MCG tablet Commonly known as: Vitamin B-12 Take 1 tablet (1,000 mcg) by mouth daily. dupilumab 300 MG/2ML injection Commonly known as: Dupixent ergocalciferol 1.25 MG (22716 UT) capsule Commonly known as: Vitamin D-2 famotidine 40 MG tablet Commonly known as: Pepcid furosemide 40 MG tablet Commonly known as: Lasix guaiFENesin 100 MG/5ML syrup Commonly known as: Robitussin hydrOXYzine HCl 25 MG tablet Commonly known as: Atarax insulin glargine 100 UNIT/ML injection Commonly known as: Lantus Inject 50 Units under the skin 2 times daily. isosorbide mononitrate ER 30 MG 24 hr tablet Commonly known as: Imdur methenamine hippurate 1 g tablet Commonly known as: Hiprex metoprolol succinate XL 25 MG 24 hr tablet Commonly known as: Toprol-XL N-Acetyl Cysteine 600 MG capsule capsule Generic drug: Acetylcysteine oxyCODONE-acetaminophen 5-325 MG tablet Commonly known as: Percocet Take 1 tablet by mouth every 6 hours as needed for severe pain (7-10). polyethylene glycol (PEG) 3350 17 g packet Commonly known as: Miralax promethazine 25 MG tablet Commonly known as: Phenergan ranolazine 1000 MG 12 hr tablet Commonly known as: Ranexa senna-docusate sodium 8.6-50 MG tablet Commonly known as: Senokot-S Take 1 tablet by mouth 2 times daily. Tradjenta 5 MG tablet Generic drug (more content not included)... [facility] 03-09-2024 Hospital course Narrative Images from the original note were not included. Hospitalist Discharge Summary Kimberly Patel : 1955 Admit date: 03/05/2024 Discharge date: 03/09/2024 Admitting Physician: Eboni Fletcher MD Primary Care Physician: Lucy Quick Visit Status: admission Code Status: Full Code Discharge Diagnoses: Acute metabolic encephalopathy Waxing and waning mentation Recent enterococcus faecalis UTI and bacteremia Malfunctioning PICC CKD stage 3 DM type 2 with hyperglycemia HX of COPD Chronic hypoxic respiratory failure CAD HLD Anxiety/depression HFpEF Hospital Course: patient was reported to be hallucinating at SNF where she was getting IV abx through PICC for multidrug resistant enterococcus faecalis UTI with bacteremia. Abx were to be completed on 03/08/24. CT head negative, mentation returned to baseline. Repeat BC negative, patient evaluated by ID, deemed mentation changes to be 2/2 recent abx usage. Repeat blood cultures remained negative. Patient labs and vitals otherwise sable. Patient cleared by ID for discharge, ok to remove PICC and discontinue abx going forward. Patient discharged back to SNF in stable condition on 03/09/24. She is to follow up with PCP outpatient in 1-2 weeks. Consults: IP CONSULT TO INFECTIOUS DISEASES Discharge Instructions: Diet: Adult diet Regular Activity: as tolerated Recommended Outpatient Tests: Disposition: Patient discharged in stable condition to home. LABS: CBC: Recent Labs 03/07/2422603/08/2413103/09/24 0605 WBC 8.1 6.9 6.3 RBC 2.90* 2.91* 2.69* HGB 8.4* 8.3* 7.9* HCT 26.5* 27.5* 25.7* MCV 91.4 94.5 95.5 RDW 16.8* 17.2* 17.4* PLT 312 298 256 BMP: Recent Labs 03/07/2422603/08/2413103/09/24 0605 NA 137 138 138 K 4.0 4.2 4.6 CL 106 108* 108* CO2 27 29 26 BUN 21* 23* 26* CREATININE 1.12* 1.24* 1.22* GLUCOSE 75 75 147* CALCIUM 8.7 8.4 7.8* ANIONGAP 5 1* 5 LIVER PROFILE: Recent Labs 03/08/2413103/09/24 0605 AST 24 17 ALT 21 18 BILITOT 0.3 0.3 ALKPHOS 86 82 PROT 5.2* 4.8* PT/INR: No results for input(s): PROTIME, INR in the last 72 hours. CARDIAC ENZYMES: No results for input(s): TROPONINI in the last 72 hours. Procalcitonin: No results found for: PROCAL COVID-19 PCR: No results for input(s): COVID19 in the last 72 hours. Vitals: BP 101/53 (BP Location: Left arm, Patient Position: Lying) Pulse 85 Temp 36.2 C (97.2 F) (Temporal) Resp 16 SpO2 100% Pulse Ox: SpO2 Av % Min: 94 % Max: 100 % Supplemental O2: O2 Flow Rate (L/min): 4 L/min General appearance: No apparent distress, appears stated age and cooperative with exam, obese female in NAD Respiratory: diminished, no wheezing. Cardiovascular: Regular rate and rhythm with no murmur Abdomen: Soft, non-tender, non-distended Skin: Skin color, texture, turgor normal. No rashes or lesions. Distal pulses intact in BL LE, trace BL LE edema present. Neurologic: grossly non-focal. Discharge Medications: Medication List CONTINUE taking these medications acetaminophen 325 MG tablet Commonly known as: Tylenol * albuterol 108 (90 Base) MCG/ACT inhaler * albuterol (2.5 MG/3ML) 0.083% nebulizer solution aspirin 81 MG EC tablet atorvastatin 40 MG tablet Commonly known as: Lipitor * bisacodyl 10 MG/30ML enema Commonly known as: Fleet Bisacodyl * bisacodyl 5 MG EC tablet Commonly known as: Dulcolax budesonide-formoterol 160-4.5 MCG/ACT inhaler Commonly known as: Symbicort calcium carbonate 500 MG chewable tablet Commonly known as: Tums clobetasol 0.05 % cream Commonly known as: Temovate cyanocobalamin 1000 MCG tablet Commonly known as: Vitamin B-12 Take 1 tablet (1,000 mcg) by mouth daily. dupilumab 300 MG/2ML injection Commonly known as: Dupixent ergocalciferol 1.25 MG (17897 UT) capsule Commonly known as: Vitamin D-2 famotidine 40 MG tablet Commonly known as: Pepcid furosemide 40 MG tablet Commonly known as: Lasix guaiFENesin 100 MG/5ML syrup Commonly known as: Robitussin hydrOXYzine HCl 25 MG tablet Commonly known as: Atarax insulin glargine 100 UNIT/ML injection Commonly known as: Lantus Inject 50 Units under the skin 2 times daily. isosorbide mononitrate ER 30 MG 24 hr tablet Commonly known as: Imdur methenamine hippurate 1 g tablet Commonly known as: Hiprex metoprolol succinate XL 25 MG 24 hr tablet Commonly known as: Toprol-XL N-Acetyl Cysteine 600 MG capsule capsule Generic drug: Acetylcysteine oxyCODONE-acetaminophen 5-325 MG tablet Commonly known as: Percocet Take 1 tablet by mouth every 6 hours as needed for severe pain (7-10). polyethylene glycol (PEG) 3350 17 g packet Commonly known as: Miralax promethazine 25 MG tablet Commonly known as: Phenergan ranolazine 1000 MG 12 hr tablet Commonly known as: Ranexa senna-docusate sodium 8.6-50 MG tablet Commonly known as: Senokot-S Take 1 tablet by mouth 2 times daily. Tradjenta 5 MG tablet Generic drug: linaGLIPtin venlafaxine XR 75 MG 24 hr capsule Commonly known as: Effexor XR white petrolatum gel * This list has 4 medication(s) that are the same as other medications prescribed for you. Read the directions carefully, and ask your doctor or other care provider to review them with you. STOP taking these medications doxycycline 100 MG capsule Commonly known as: Monodox ERTAPENEM SODIUM IJ Recommended Follow-up: PCP outpatient in 1-2 weeks @READMISSIONRISK@ Complexity of Follow up: [] Moderate Complexity: follow up within 7-14 calendar days (53003) [x] Severe Complexity: follow up within 7 calendar days (34047) Follow up Testing, Pending results or Referrals at Transitional Care Visit: [x] yes [] no Instructions to MA: Please call patient on day after discharge (must document patient contacted within 2 business days of discharge). Follow up questions for MA: 1. Did you get medications filled and taking them as instructed from discharge? 2. Are you following your discharge instructions from your hospital stay? 3. Please confirm patient is scheduled for a follow up appointment within the above time frame. Signed: Carmen Talamantes DO Division of Hospitalist Medicine [facility]patient Medical Services[place] [place]09/[place]24, 7:47 AM Total time Spent on Discharge: 31 minutes documented in this encounter [facility] 03-08-2024 Note [facility] - Infectious Diseases Attending Progress Note Subjective: States that she is feeling at baseline SALVAGE CLERK function I held a 10 min conversation with her and she seemed appropriate and asked good questions. She has no memory of hallucinations and confusion at her ECF Discussed that repeat urine showed a few yeast and no significant numbers of bacteria *a few E. Faecalis)- stated that she did not have further E coli but asked to watch for recurrent symptoms. Denies flank pain or vaginitis, thrush or rashes. [place]: f/up for confusion/hallucinations, malaise on Day 11 Ertapenem. Now off of therapy since 03/05/24. She is a was ECF x 2 yrs since she can't walk, and was recently on IV TX for sepsis from ESBL E. Coli pyelonephritis bacteremia and hospitalized 02/20-02/28/24, then sent to [facility] on Ertapenem for anticipated 14 d. Multiple serious medical problems including COPD on 4 L NC chronically, and DM2 (Hb A1c 7/obesity related, CKD 3a, chronic anemia (hg baseline 9, now 8.3)) Urine culture repeated while Ertapenem held for concern for SALVAGE CLERK SE of Ertapenem. And UA contaminated with Epi's with growth of 50-90 K Enterococcus and 10-50 K Jose Vitals: Patient Vitals for the past 24 hrs: BP Temp Temp src Pulse Resp SpO2 03/08/24 0844 108/75 36.4 ?C (97.6 ?F) Temporal 96 16 94 % 03/07/24 1924 141/71 36.5 ?C (97.7 ?F) Temporal 88 16 100 % Physical Exam Vitals reviewed. Constitutional: General: She is not in acute distress. Appearance: She is obese. She is ill-appearing. She is not toxic-appearing or diaphoretic. Comments: Chronically ill appearing with loose skin and scarring of skin, with atrophic limbs. Moves legs but states that she can't walk due to spinal degenerative disease. Marked central obesity HENT: Head: Normocephalic and atraumatic. Nose: Nose normal. No congestion or rhinorrhea. Mouth/Throat: Mouth: Mucous membranes are moist. Pharynx: No oropharyngeal exudate or posterior oropharyngeal erythema. Eyes: General: No scleral icterus. Right eye: No discharge. Left eye: No discharge. Extraocular Movements: Extraocular movements intact. Cardiovascular: Rate and Rhythm: Normal rate and regular rhythm. Heart sounds: No murmur heard. Pulmonary: Effort: Pulmonary effort is normal. No respiratory distress. Comments: Wearing NC oxygen and speaking in full sentences in no distress With no cough noted, and no air hunger appreciated Abdominal: General: Bowel sounds are normal. There is no distension. Palpations: Abdomen is soft. There is no mass. Tenderness: There is no abdominal tenderness. There is no right CVA tenderness or left CVA tenderness. Musculoskeletal: General: No swelling or tenderness. Cervical back: Normal range of motion and neck supple. No rigidity or tenderness. Right lower leg: No edema. Left lower leg: No edema. Skin: Coloration: Skin is not jaundiced. Findings: No rash. Comments: Scab L knee Neurological: Mental Status: She is oriented to person, place, and time. Motor: Weakness present. Psychiatric: Mood and Affect: Mood normal. Behavior: Behavior normal. Thought Content: Thought content normal. Judgment: Judgment normal. Labs: Recent Labs 03/05/24201103/07/2422603/08/24 013 NA 137 137 138 K 4.7 4.0 4.2 CL 104 106 108* CO2 25 27 29 BUN 24* 21* 23* CREATININE 1.23* 1.12* 1.24* GLUCOSE 144* 75 75 CALCIUM 9.1 8.7 8.4 PROT 5.7* -- 5.2* BILITOT 0.4 -- 0.3 ALKPHOS 95 -- 86 AST 21 -- 24 ALT 22 -- 21 Recent Labs 03/05/24202903/07/2422603/08/24131 WBC 8.7 8.1 6.9 HGB 9.3* 8.4* 8.3* HCT 29.7* 26.5* 27.5* PLT 342 312 298 LYMPHOPCT 20.0 26.3 32.6 MONOPCT 8.1 11.0 11.7 BASOPCT 0.7 0.6 0.4 NEUTROABS 5.7 4.7 3.5 Micro: No results for input(s): COVID19 in the last 72 hours. 03/05/24 UA with 26-50 WBC but also 6-10 squamous epi cells and a few bacteri 03/05/24 urine culture: Urine Culture 50,000-90,000 CFU/mL Enterococcus raffinosus Abnormal Susceptibility testing performed only upon request for cultures with multiple types of microorganisms below 100,000 CFU/ml. 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 Multiple other medical problems including bed bound status due to back pain, DM2 insulin dependent (good recent control). And severe COPD on 4 L NC oxygen 4. Anemia 5 CKD (more content not included)... [facility] 03-08-2024 History of Presen t illness Narrative Images from the original note were not included. 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 She has no memory of hallucinations and confusion at her ECF Discussed that repeat urine showed a few yeast and no significant numbers of bacteria *a few E. Faecalis)- stated that she did not have further E coli but asked to watch for recurrent symptoms. Denies flank pain or vaginitis, thrush or rashes. [place]: f/up for confusion/hallucinations, malaise on Day 11 Ertapenem. Now off of therapy since 03/05/24. She is a was ECF x 2 yrs since she can't walk, and was recently on IV TX for sepsis from ESBL E. Coli pyelonephritis bacteremia and hospitalized 02/20-02/28/24, then sent to [facility] on Ertapenem for anticipated 14 d. Multiple serious medical problems including COPD on 4 L NC chronically, and DM2 (Hb A1c 7/obesity related, CKD 3a, chronic anemia (hg baseline 9, now 8.3)) Urine culture repeated while Ertapenem held for concern for SALVAGE CLERK SE of Ertapenem. And UA contaminated with Epi's with growth of 50-90 K Enterococcus and 10-50 K Jose Vitals: Patient Vitals for the past 24 hrs: BP Temp Temp src Pulse Resp SpO2 03/08/24 0844 108/75 36.4 C (97.6 F) Temporal 96 16 94 % 03/07/24 192 141/71 36.5 C (97.7 F) Temporal 88 16 100 % Physical Exam Vitals reviewed. Constitutional: General: She is not in acute distress. Appearance: She is obese. She is ill-appearing. She is not toxic-appearing or diaphoretic. Comments: Chronically ill appearing with loose skin and scarring of skin, with atrophic limbs. Moves legs but states that she can't walk due to spinal degenerative disease. Marked central obesity HENT: Head: Normocephalic and atraumatic. Nose: Nose normal. No congestion or rhinorrhea. Mouth/Throat: Mouth: Mucous membranes are moist. Pharynx: No oropharyngeal exudate or posterior oropharyngeal erythema. Eyes: General: No scleral icterus. Right eye: No discharge. Left eye: No discharge. Extraocular Movements: Extraocular movements intact. Cardiovascular: Rate and Rhythm: Normal rate and regular rhythm. Heart sounds: No murmur heard. Pulmonary: Effort: Pulmonary effort is normal. No respiratory distress. Comments: Wearing NC oxygen and speaking in full sentences in no distress With no cough noted, and no air hunger appreciated Abdominal: General: Bowel sounds are normal. There is no distension. Palpations: Abdomen is soft. There is no mass. Tenderness: There is no abdominal tenderness. There is no right CVA tenderness or left CVA tenderness. Musculoskeletal: General: No swelling or tenderness. Cervical back: Normal range of motion and neck supple. No rigidity or tenderness. Right lower leg: No edema. Left lower leg: No edema. Skin: Coloration: Skin is not jaundiced. Findings: No rash. Comments: Scab L knee Neurological: Mental Status: She is oriented to person, place, and time. Motor: Weakness present. Psychiatric: Mood and Affect: Mood normal. Behavior: Behavior normal. Thought Content: Thought content normal. Judgment: Judgment normal. Labs: Recent Labs 03/05/24201103/07/247 03/08/24 0132 NA 137 137 138 K 4.7 4.0 4.2 CL 104 106 108* CO2 25 27 29 BUN 24* 21* 23* CREATININE 1.23* 1.12* 1.24* GLUCOSE 144* 75 75 CALCIUM 9.1 8.7 8.4 PROT 5.7* -- 5.2* BILITOT 0.4 -- 0.3 ALKPHOS 95 -- 86 AST 21 -- 24 ALT 22 -- 21 Recent Labs 03/05/24 2030 03/07/24 0227 03/08/24 0132 WBC 8.7 8.1 6.9 HGB 9.3* 8.4* 8.3* HCT 29.7* 26.5* 27.5* PLT 342 312 298 LYMPHOPCT 20.0 26.3 32.6 MONOPCT 8.1 11.0 11.7 BASOPCT 0.7 0.6 0.4 NEUTROABS 5.7 4.7 3.5 Micro: No results for input(s): COVID19 in the last 72 hours. 03/05/24 UA with 26-50 WBC but also 6-10 squamous epi cells and a few bacteri 03/05/24 urine culture: Urine Culture 50,000-90,000 CFU/mL Enterococcus raffinosus Abnormal Susceptibility testing performed only upon request for cultures with multiple types of microorganisms below 100,000 CFU/ml. 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 Multiple other medical problems including bed bound status due to back pain, DM2 insulin dependent (good recent control). And severe COPD on 4 L NC oxygen 4. Anemia 5 CKD 3a I spent total time 35 minutes caring for this patient today ,including reviewing labs, records from another facility, interviewing and examining the patient and documenting, writing orders (prescriptions/meds), and instructing the patient on self care. Images from the original note were not included. Hospitalist Progress Note 03/08/2024 [phone]: Please page me ([phone]) for patient care issues. [phone]: Please page [facility] Hospitalist for any issues. Subjective: Admit Date: 03/05/2024 PCP: Lucy Quick Room#: [id number]/B4-450 A Interval History: No overnight issues. Denies chest pain, sob, abdominal pain, nausea, vomiting, diarrhea, constipation, fevers, or chills. Patient without acute issues. Patient endorses some chronic pain but otherwise feels well. Adult diet Regular 24HR INTAKE/OUTPUT: No intake or output data in the 24 hours ending 03/08/24 1050 Past Medical History: Past Medical History: Diagnosis Date Asthma Atherosclerosis Bullous pemphigoid CHF (congestive heart failure) (HCC) Chronic kidney disease (CKD), stage III (moderate) (HCC) Cognitive deficits COPD (chronic obstructive pulmonary disease) (HCC) Depression Diabetes mellitus (HCC) GERD (gastroesophageal reflux disease) Hyperlipidemia Hypertension Morbid obesity due to excess calories ([facility]) LABS: CBC: Recent Labs 03/05/24202903/07/2422603/08/24131 WBC 8.7 8.1 6.9 RBC 3.19* 2.90* 2.91* HGB 9.3* 8.4* 8.3* HCT 29.7* 26.5* 27.5* MCV 93.1 91.4 94.5 RDW 16.5* 16.8* 17.2* PLT 342 312 298 BMP: Recent Labs 03/05/24201103/07/2422603/08/24131 NA 137 137 138 K 4.7 4.0 4.2 CL 104 106 108* CO2 25 27 29 BUN 24* 21* 23* CREATININE 1.23* 1.12* 1.24* GLUCOSE 144* 75 75 CALCIUM 9.1 8.7 8.4 ANIONGAP 7 5 1* LIVER PROFILE: Recent Labs 03/05/24201103/08/24131 AST 21 24 ALT 22 21 BILITOT 0.4 0.3 ALKPHOS 95 86 PROT 5.7* 5.2* PT/INR: No results for input(s): PROTIME, INR in the last 72 hours. CARDIAC ENZYMES: No results for input(s): TROPONINI in the last 72 hours. Procalcitonin: No results found for: PROCAL COVID-19 PCR: No results for input(s): COVID19 in the last 72 hours. Objective: Vitals: BP 108/75 Pulse 96 Temp 36.4 C (97.6 F) (Temporal) Resp 16 SpO2 94% Pulse Ox: SpO2 Av % Min: 94 % Max: 100 % Supplemental O2: O2 Flow Rate (L/min): 4 L/min General appearance: No apparent distress, appears stated age and cooperative with exam, obese female in NAD, AAOx4 Respiratory: diminished Cardiovascular: Regular rate and rhythm with no murmur Abdomen: Soft, non-tender, non-distended Skin: Skin color, texture, turgor normal. No rashes or lesions. Distal pulses intact in BL LE, no edema in BL LE Neurologic: grossly non-focal. Medications: aspirin, 81 mg, Oral, Daily atorvastatin, 40 mg, Oral, Daily cyanocobalamin, 1,000 mcg, Oral, Daily enoxaparin, 40 mg, SubCUTAneous, Daily famotidine, 20 mg, Oral, Daily insulin glargine, 25 Units, SubCUTAneous, BID insulin lispro, 0-6 Units, SubCUTAneous, TID WC And insulin lispro, 0-6 Units, SubCUTAneous, Nightly isosorbide mononitrate ER, 30 mg, Oral, Daily linaGLIPtin, 5 mg, Oral, Daily methenamine hippurate, 1 g, Oral, BID metoprolol succinate XL, 25 mg, Oral, Daily mometasone-formoterol, 2 puff, Inhalation, BID ranolazine, 1,000 mg, Oral, BID senna-docusate sodium, 1 tablet, Oral, BID venlafaxine XR, 75 mg, Oral, Daily Assessment Acute metabolic encephalopathy Waxing and waning mentation Recent Hx of Enterococcus faecalis UTI and bacteremia PICC in place already was on ertapenem with completion date of 03/08/24 ID on consult, hold off on abx, repeat BC in the AM per discussion with ID Mentation waxes and wanes per patient CT of head negative Malfunctioning PICC Unable to be flushed May need either replacement vs removal if no further abx indicated per ID CKD stage 3 Cr baseline of 1.2-1.4 DM type 2 with hyperglycemia Diabetic diet Insulin regimen resumed Hx of COPD Chronic hypoxic respiratory failure Breathing treatments Baseline on 3-4L via NC CAD ASA and statin HLD Statin Anxiety/depression Venlafaxine HFpEF no acute exacerbation Medical Decision Making 03/06/24: patient was reported to be hallucinating at SNF where she was getting IV abx through PICC for multidrug resistant enterococcus faecalis UTI with bacteremia. Abx were to be completed on 03/08/24. Discussed with ID today, monitor off abx, repeat BC tomorrow. CBC and BMP in the AM. 03/07/24: CT of head negative. Mentation consistent with waxing and waning process that seems to be baseline for patient. Repeat BC today. Await negative cultures, ID following. No abx currently, monitor off abx. CBC and BMP in the AM. PT/OT eval and treat. 03/08/24: await negative cultures per ID recs. Repeat BC obtained yesterday, likely not able to discharge until tomorrow vs 03/10/24. Continue to monitor for indications of active infection. Cbc and BMP in the AM. -am labs, replace lytes prn -increase activity -resume home medications as indicated -DVT prophylaxis: [x] Lovenox [] Heparin [] SCDs [x] Encourage ambulation [] Already on Anticoagulation Anticipated Discharge - Date - 03/09 vs 03/10? - Location - [facility] - Pending the following - stable mentation, abx recs from ID, consultants clearance. Toxic drug monitoring/narrow therapeutic index drug monitoring : # Drug name : # Route administered : # Method of monitoring : Extended Emergency Contact Information Primary Emergency Contact: Alexandro Cote Mobile Relation: Daughter Preferred language: Mone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 Carmen Talamantes DO Division of Hospitalist Medicine Inpatient Medical Services[place]: Epic chat Images from the original note were not included. [facility] - Infectious Diseases Attending Progress Note Subjective: Follow up for confusion while on ertapenem (for 12 days) for ESBL E coli bacteremia. She was alert, laying on bed, thought that she was still at the nursing facility, followed commands appropriately, wearing 4L O2 (baseline), appeared non-toxic. She was admitted on 03/05/24 from an ECF due to increased confusion, hallucinations and not feeling well; on presentation in ED, she mentioned that she felt fine but sometimes her consciousness waxes and wanes, she denied physically seeing or hearing anyone, her temp was 99.7 F, initial UA showed 51-100 WBC, no leukocytosis (wbc of 8.7k), elevated Cr 1.23, CXR did not show any consolidation or pulmonary edema, ertapenem was discontinued. She was recently admitted at [facility] from 02/20- 02/28/24 due to severe sepsis due to ESBL E. Coli UTI/bacteremia and was discharged on ertapenem for 2 weeks through 03/08/24. She has h/o chronic resp failure (4 L NC), poorly controlled DM and obesity disorder. She was examined; notes, labs and imaging were reviewed and treatment plan was discussed. Objective: Vitals: Patient Vitals for the past 24 hrs: BP Temp Temp src Pulse Resp SpO2 03/07/24 1143 123/65 36.8 C (98.2 F) Temporal 87 -- 100 % 03/07/24 0716 (!) 140/108 37.1 C (98.8 F) Temporal 84 17 95 % 03/06/24 1931 108/66 36.9 C (98.4 F) Temporal 92 18 95 % Physical Exam Vitals and nursing notes were reviewed. General appearance: She is obese, chronically ill-appearing, no acute distress. HEENT: Normal cephalic, atraumatic without obvious deformity. Pupils equal, round, and reactive to light. Extra ocular muscles intact. Conjunctivae/corneas clear. Neck: Supple, with full range of motion. No jugular venous distention. Trachea midline. No lymphadenopathy. Respiratory: Normal respiratory effort. Clear to auscultation, bilaterally without Rales/Wheezes/Rhonchi. Cardiovascular: Regular rate and rhythm with normal S1/S2 without murmurs, rubs or gallops. Abdomen: Soft, non-tender, non-distended with normal bowel sounds. No rebound or guarding. Musculoskeletal: 1+ lower extremity edema Skin: She has some partial-thickness skin breakdown in her sacral area Neurologic: Neurovascularly intact without any focal sensory/motor deficits. Cranial nerves grossly intact. Psych: Awake alert and oriented 3. Pleasant and cooperative. Labs: Recent Labs 03/05/24201103/07/24226 NA 137 137 K 4.7 4.0 CL 104 106 CO2 25 27 BUN 24* 21* CREATININE 1.23* 1.12* GLUCOSE 144* 75 CALCIUM 9.1 8.7 PROT 5.7* -- BILITOT 0.4 -- ALKPHOS 95 -- AST 21 -- ALT 22 -- Recent Labs 03/05/24202903/07/24226 WBC 8.7 8.1 HGB 9.3* 8.4* HCT 29.7* 26.5* PLT 342 312 LYMPHOPCT 20.0 26.3 MONOPCT 8.1 11.0 BASOPCT 0.7 0.6 NEUTROABS 5.7 4.7 Micro: No results for input(s): COVID19 in the last 72 hours. 03/07/2024 0547 03/07/2024 08 Blood culture Site #2 - Assess for effectiveness of treatment [[id number]] Blood, Venous Preliminary result Component Value Blood Culture Blood culture incubation started P 03/07/2024 0520 03/07/2024 0801 Blood culture Site #1 - Assess for effectiveness of treatment [[id number]] Blood, Venous Preliminary result Component Value Blood Culture Blood culture incubation started P 03/05/2024 2044 03/07/2024 0932 Urine culture [[id number]] (Abnormal) Urine, Clean Catch Preliminary result Component Value Urine Culture 50,000-90,000 CFU/mL Enterococcus raffinosus Abnormal P Susceptibility testing performed only upon request for cultures with multiple types of microorganisms below 100,000 CFU/ml. 10,000-50,000 CFU/mL Jose albicans Abnormal P 02/25/2024 1536 02/27/2024 1045 Urine culture [[id number]] (Abnormal) Urine, Clean Catch Final result Component Value Urine Culture Normal urogenital krys present 10,000-50,000 CFU/mL Jose albicans Abnormal 02/23/2024 0439 02/28/2024 1101 Blood culture Site #2 - Assess for effectiveness of treatment [[id number]] Blood, Venous Final result Component Value Blood Culture No growth at 5 days 02/23/2024 0438 02/28/2024 1101 Blood culture Site #1 - Assess for effectiveness of treatment [[id number]] Blood, Venous Final result Component Value Blood Culture No growth at 5 days Lines: Rt arm PICC Radiography/Echo/Other: CT head wo IV contrast [[id number]] Collected: 03/06/241623 Order Status: Completed Updated: 03/06/241628 Narrative: Patient Name: KIMBERLY PATEL : 1955 Exam Date/Time: 03/06/2024 16:10 Procedure: CT HEAD WO IV CONTRAST Ordering Provider: TALAMANTES JONATHAN Reason For Exam: Mental status change, unknown cause CT HEAD WITHOUT CONTRAST CLINICAL HISTORY: Mental status change, unknown cause COMPARISON: 02/21/2024 TECHNIQUE: Helical CT of the brain without contrast. Dose reduction was employed with automated exposure control. FINDINGS: Limitations: Streak artifacts throughout the posterior fossa and inferior cerebral hemispheres, limiting assessment at these sites. Acute Findings: No evidence of an acute infarct or intracranial hemorrhage. Chronic Changes: Scattered patchy foci of white matter hypoattenuation, most likely mild chronic microvascular ischemic changes. Ventricles and sulci: Mild generalized brain parenchymal volume loss. No hydrocephalus. Other: Fluid opacification the mastoid air cells bilaterally, likely mastoid effusions. Persistent sphenoid sinus opacification bilaterally. Impression: Limited study. No acute intracranial abnormalities or significant change from the prior study. Report Dictated on Electronically Signed By: Frankie Patel MD Electronically Signed Date/Time: 03/06/2024 4:28 PM EDT XR chest 1 view [[id number]] Collected: 03/05/242023 Order Status: Completed Updated: 03/05/242025 Narrative: Patient Name: KIMBERLY PATEL : 1955 Exam Date/Time: 03/05/2024 20:11 Procedure: XR CHEST 1 VIEW Ordering Provider: CORTEZ MARK Reason For Exam: ALTERED MENTAL STATUS EXAM TYPE: RADIOLOGIC EXAMINATION, CHEST, SINGLE VIEW FRONTAL (CXR SINGLE VIEW) EXAM DATE AND TIME: 03/05/2024 8:11 PM EDT INDICATION: Altered mental status COMPARISON: None available. TECHNIQUE: A single frontal view of the thorax was obtained and reviewed. Special views: None. Impression: FINDINGS/IMPRESSION: The patient is somewhat rotated 1. Lines/Tubes/Devices/Hardware: Right PICC with catheter tip overlying the SVC 2. Lungs: No consolidation or pulmonary edema. 3. Pleura: No pneumothorax or large pleural effusions. 4. Heart and mediastinum: Normal cardiomediastinal contours. Report Dictated on Electronically Signed By: Milad Kirkpatrick MD Electronically Signed Date/Time: 03/05/2024 8:25 PM EDT Antimicrobials, Start/End Dates: Ceftr 02/20- Erta 02/21- 03/06 Impression: Acute confusion and hallucination. Recent ESBL-E coli bacteremia and UTI. Chronic resp failure (4 L O2 NC baseline). H/o Poorly controlled DM. Obesity disorder. Plan: Pt was admitted due to acute confusion. Afebrile, hemodynamically ok. CXR unremarkable. No leukocytosis. Mild confusion continued off ertapenem. She was scheduled to continue ertapenem till 03/08/24 but it was stopped on 03/06/24 (2 days short). Blood cxs were drawn on 03/07; if cxs remain negative, no further antimicrobial treatment. Her urine cx grew enterococcus and yeast, however, she denied any dysuria and pyuria decreased from 51-100 to 26-50. Check labs in AM. If she gets urinary symptoms and/or leukocytosis, rept UA and urine cx. Moderate level complexity medical decision making. Dr. Mckeon covers WE. Total time 50 minutes on this day of encounter includes counseling, coordinating plan of care, record and documentation review before and after visit including documentation and time not explicitly included on EMR time stamp for accounting for open encounter. Nutrition rescreen completed. Patient assigned a level 1 for nutrition care. Images from the original note were not included. Hospitalist Progress Note 03/07/[phone]: Please page me ([phone]) for patient care issues. [phone]: Please page [facility] Hospitalist for any issues. Subjective: Admit Date: 03/05/2024 PCP: Lucy Quick Room#: [id number]/[id number] A Interval History: No overnight issues. Denies chest pain, sob, abdominal pain, nausea, vomiting, diarrhea, constipation, fevers, or chills. Patient without acute issues. Nursing reports intermittent hallucinations. Adult diet Regular 24HR INTAKE/OUTPUT: No intake or output data in the 24 hours ending 03/07/24 1036 Past Medical History: Past Medical History: Diagnosis Date Asthma Atherosclerosis Bullous pemphigoid CHF (congestive heart failure) (HCC) Chronic kidney disease (CKD), stage III (moderate) (HCC) Cognitive deficits COPD (chronic obstructive pulmonary disease) (HCC) Depression Diabetes mellitus (HCC) GERD (gastroesophageal reflux disease) Hyperlipidemia Hypertension Morbid obesity due to excess calories (HCC) LABS: CBC: Recent Labs 03/05/24202903/07/24226 WBC 8.7 8.1 RBC 3.19* 2.90* HGB 9.3* 8.4* HCT 29.7* 26.5* MCV 93.1 91.4 RDW 16.5* 16.8* PLT 342 312 BMP: Recent Labs 03/05/24201103/07/24226 NA 137 137 K 4.7 4.0 CL 104 106 CO2 25 27 BUN 24* 21* CREATININE 1.23* 1.12* GLUCOSE 144* 75 CALCIUM 9.1 8.7 ANIONGAP 7 5 LIVER PROFILE: Recent Labs 03/05/242011 AST 21 ALT 22 BILITOT 0.4 ALKPHOS 95 PROT 5.7* PT/INR: No results for input(s): PROTIME, INR in the last 72 hours. CARDIAC ENZYMES: No results for input(s): TROPONINI in the last 72 hours. Procalcitonin: No results found for: PROCAL COVID-19 PCR: No results for input(s): COVID19 in the last 72 hours. Objective: Vitals: BP (!) 140/108 (BP Location: Left arm, Patient Position: Lying) Pulse 84 Temp 37.1 C (98.8 F) (Temporal) Resp 17 SpO2 95% Pulse Ox: SpO2 Av.7 % Min: 95 % Max: 100 % Supplemental O2: O2 Flow Rate (L/min): 4 L/min General appearance: No apparent distress, appears stated age and cooperative with exam, obese female in NAD, AAOx4 Respiratory: diminished, no wheezing. Cardiovascular: Regular rate and rhythm with no murmur Abdomen: Soft, non-tender, non-distended Skin: Skin color, texture, turgor normal. No rashes or lesions. Distal pulses intact in BL LE, no edema in BL LE Neurologic: grossly non-focal. Medications: aspirin, 81 mg, Oral, Daily atorvastatin, 40 mg, Oral, Daily cyanocobalamin, 1,000 mcg, Oral, Daily enoxaparin, 40 mg, SubCUTAneous, Daily famotidine, 20 mg, Oral, Daily insulin glargine, 50 Units, SubCUTAneous, BID insulin lispro, 0-6 Units, SubCUTAneous, TID WC And insulin lispro, 0-6 Units, SubCUTAneous, Nightly isosorbide mononitrate ER, 30 mg, Oral, Daily linaGLIPtin, 5 mg, Oral, Daily methenamine hippurate, 1 g, Oral, BID metoprolol succinate XL, 25 mg, Oral, Daily mometasone-formoterol, 2 puff, Inhalation, BID ranolazine, 1,000 mg, Oral, BID senna-docusate sodium, 1 tablet, Oral, BID venlafaxine XR, 75 mg, Oral, Daily Assessment Acute metabolic encephalopathy Waxing and waning mentation Recent Hx of Enterococcus faecalis UTI and bacteremia PICC in place already was on ertapenem with completion date of 03/08/24 ID on consult, hold off on abx, repeat BC in the AM per discussion with ID Mentation waxes and wanes per patient CT of head negative Malfunctioning PICC Unable to be flushed May need either replacement vs removal if no further abx indicated per ID CKD stage 3 Cr baseline of 1.2-1.4 DM type 2 with hyperglycemia Diabetic diet Insulin regimen resumed Hx of COPD Chronic hypoxic respiratory failure Breathing treatments Baseline on 3-4L via NC CAD ASA and statin HLD Statin Anxiety/depression Venlafaxine HFpEF no acute exacerbation Medical Decision Making 03/06/24: patient was reported to be hallucinating at SNF where she was getting IV abx through PICC for multidrug resistant enterococcus faecalis UTI with bacteremia. Abx were to be completed on 03/08/24. Discussed with ID today, monitor off abx, repeat BC tomorrow. CBC and BMP in the AM. 03/07/24: CT of head negative. Mentation consistent with waxing and waning process that seems to be baseline for patient. Repeat BC today. Await negative cultures, ID following. No abx currently, monitor off abx. CBC and BMP in the AM. PT/OT eval and treat. -am labs, replace lytes prn -increase activity -resume home medications as indicated -DVT prophylaxis: [x] Lovenox [] Heparin [] SCDs [x] Encourage ambulation [] Already on Anticoagulation Anticipated Discharge - Date - 03/08 - Location - Home - Pending the following - stable mentation, abx recs from ID, consultants clearance. Toxic drug monitoring/narrow therapeutic index drug monitoring : # Drug name : # Route administered : # Method of monitoring : Extended Emergency Contact Information Primary Emergency Contact: Alexandro Cote Mobile Relation: Daughter Preferred language: 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 Carmen Talamantes DO Division of Hospitalist Medicine Inpatient Medical Services[place] [place]: [employer] chat Images from the original note were not included. OCCUPATIONAL THERAPY [facility] Name/MRN: Kimberly Patel ([id number]) Date: 03/07/2024 Chart review completed. 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 This patient is a total assist at baseline for ADLs, mohamud lift for for transfers and non-ambulatory. Pt is at her functional baseline and has no skilled OT needs. Will complete current OT order at this time. Nilsa Vieira OT Images from the original note were not included. PHYSICAL THERAPY [facility] Name/MRN: Kimberly Patel ([id number]) Date: 03/07/2024 Chart review completed. Per previous documentation and confirmation from CM documentation, this patient is a [place] [facility] resident at a facility and does not require auth to return. This patient is a total assist at baseline for ADLs, mohamud lift for for transfers and non-ambulatory. Pt is at her functional baseline and has no skilled PT needs. Will complete current PT order at this time. Jaky Hayes, PT Images from the original note were not included. Hospitalist Progress Note 03/06/[id number]: Please page hi ([phone]) for patient care issues. [phone]: Please page [facility] Hospitalist for any issues. Subjective: Admit Date: 03/05/2024 PCP: Lucy Quick Room#: B4-450/B4-450 A Interval History: No overnight issues. Denies chest pain, sob, abdominal pain, nausea, vomiting, diarrhea, constipation, fevers, or chills. Patient without acute issues. Reports that she was feeling fine at the facility and does not know why she was sent to the hospital. Adult diet Regular 24HR INTAKE/OUTPUT: No intake or output data in the 24 hours ending 03/06/24 1346 Past Medical History: Past Medical History: Diagnosis Date CHF (congestive heart failure) ([facility]) COPD (chronic obstructive pulmonary disease) ([facility]) Diabetes mellitus ([facility]) LABS: CBC: Recent Labs 03/05/242029 WBC 8.7 RBC 3.19* HGB 9.3* HCT 29.7* MCV 93.1 RDW 16.5* PLT 342 BMP: Recent Labs 03/05/242011 NA 137 K 4.7 CL 104 CO2 25 BUN 24* CREATININE 1.23* GLUCOSE 144* CALCIUM 9.1 ANIONGAP 7 LIVER PROFILE: Recent Labs 03/05/242011 AST 21 ALT 22 BILITOT 0.4 ALKPHOS 95 PROT 5.7* PT/INR: No results for input(s): PROTIME, INR in the last 72 hours. CARDIAC ENZYMES: No results for input(s): TROPONINI in the last 72 hours. Procalcitonin: No results found for: PROCAL COVID-19 PCR: No results for input(s): COVID19 in the last 72 hours. Objective: Vitals: BP 138/80 Pulse 88 Temp 37.6 C (99.7 F) Resp 20 SpO2 98% Pulse Ox: SpO2 Av.5 % Min: 98 % Max: 100 % Supplemental O2: O2 Flow Rate (L/min): 4 L/min General appearance: No apparent distress, appears stated age and cooperative with exam, obese female in NAD, AAOx4 Respiratory: diminished, no wheezing. Cardiovascular: Regular rate and rhythm with no murmur Abdomen: Soft, non-tender, non-distended Skin: Skin color, texture, turgor normal. No rashes or lesions. Distal pulses intact in BL LE, no edema in BL LE Neurologic: grossly non-focal. Medications: aspirin, 81 mg, Oral, Daily atorvastatin, 40 mg, Oral, Daily cyanocobalamin, 1,000 mcg, Oral, Daily enoxaparin, 40 mg, SubCUTAneous, Daily ertapenem, 1,000 mg, IntraVENous, q24h famotidine, 20 mg, Oral, Daily insulin glargine, 50 Units, SubCUTAneous, BID insulin lispro, 0-6 Units, SubCUTAneous, TID WC And insulin lispro, 0-6 Units, SubCUTAneous, Nightly insulin lispro, 0-6 Units, SubCUTAneous, TID WC And insulin lispro, 0-6 Units, SubCUTAneous, Nightly isosorbide mononitrate ER, 30 mg, Oral, Daily linaGLIPtin, 5 mg, Oral, Daily methenamine hippurate, 1 g, Oral, BID metoprolol succinate XL, 25 mg, Oral, Daily mometasone-formoterol, 2 puff, Inhalation, BID ranolazine, 1,000 mg, Oral, BID senna-docusate sodium, 1 tablet, Oral, BID venlafaxine XR, 75 mg, Oral, Daily Assessment Acute metabolic encephalopathy Waxing and waning mentation Recent Hx of Enterococcus faecalis UTI PICC in place already was on ertapenem with completion date of 03/08/24 ID on consult, hold off on abx, repeat BC in the AM per discussion with ID Mentation waxes and wanes per patient Malfunctioning PICC Unable to be flushed May need either replacement vs removal if no further abx indicated per ID CKD stage 3 Cr baseline of 1.2-1.4 DM type 2 with hyperglycemia Diabetic diet Insulin regimen resumed Hx of COPD Chronic hypoxic respiratory failure Breathing treatments Baseline on 3-4L via NC CAD ASA and statin HLD Statin Anxiety/depression Venlafaxine Medical Decision Making 03/06/24: patient was reported to be hallucinating at SNF where she was getting IV abx through PICC for multidrug resistant enterococcus faecalis UTI. Abx were to be completed on 03/08/24. Discussed with ID today, monitor off abx, repeat BC tomorrow. CBC and BMP in the AM. -am labs, replace lytes prn -increase activity -resume home medications as indicated -DVT prophylaxis: [x] Lovenox [] Heparin [] SCDs [x] Encourage ambulation [] Already on Anticoagulation Anticipated Discharge - Date - 03/07 vs 03/08 - Location - Home - Pending the following - stable mentation, abx recs from ID. Toxic drug monitoring/narrow therapeutic index drug monitoring : # Drug name : # Route administered : # Method of monitoring : Extended Emergency Contact Information Primary Emergency Contact: Alexandro Cote Mobile Relation: Daughter Preferred language: M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 Carmen Talamantes DO Division of Hospitalist Medicine Inpatient Medical Services[place] [place]: Epic chat documented in this encounter [facility] 03-08-2024 Note Hospitalist Progress Note 03/08/2024 [phone]: Please page me ([phone]) for patient care issues. [phone]: Please page [facility] [place] Hospitalist for any issues. Subjective: Admit Date: 03/05/2024 PCP: Lucy Quick Room#: B4-450/B4-450 A Interval History: No overnight issues. Denies chest pain, sob, abdominal pain, nausea, vomiting, diarrhea, constipation, fevers, or chills. Patient without acute issues. Patient endorses some chronic pain but otherwise feels well. Adult diet Regular 24HR INTAKE/OUTPUT: No intake or output data in the 24 hours ending 03/08/24 1050 Past Medical History: Past Medical History: Diagnosis Date Asthma Atherosclerosis Bullous pemphigoid CHF (congestive heart failure) (HCC) Chronic kidney disease (CKD), stage III (moderate) (HCC) Cognitive deficits COPD (chronic obstructive pulmonary disease) (HCC) Depression Diabetes mellitus (HCC) GERD (gastroesophageal reflux disease) Hyperlipidemia Hypertension Morbid obesity due to excess calories (HCC) LABS: CBC: Recent Labs 03/05/24202903/07/2422603/08/24131 WBC 8.7 8.1 6.9 RBC 3.19* 2.90* 2.91* HGB 9.3* 8.4* 8.3* HCT 29.7* 26.5* 27.5* MCV 93.1 91.4 94.5 RDW 16.5* 16.8* 17.2* PLT 342 312 298 BMP: Recent Labs 03/05/24201103/07/2422603/08/24131 NA 137 137 138 K 4.7 4.0 4.2 CL 104 106 108* CO2 25 27 29 BUN 24* 21* 23* CREATININE 1.23* 1.12* 1.24* GLUCOSE 144* 75 75 CALCIUM 9.1 8.7 8.4 ANIONGAP 7 5 1* LIVER PROFILE: Recent Labs 03/05/24201103/08/24131 AST 21 24 ALT 22 21 BILITOT 0.4 0.3 ALKPHOS 95 86 PROT 5.7* 5.2* PT/INR: No results for input(s): PROTIME, INR in the last 72 hours. CARDIAC ENZYMES: No results for input(s): TROPONINI in the last 72 hours. Procalcitonin: No results found for: PROCAL COVID-19 PCR: No results for input(s): COVID19 in the last 72 hours. Objective: Vitals: BP 108/75 Pulse 96 Temp 36.4 ?C (97.6 ?F) (Temporal) Resp 16 SpO2 94% Pulse Ox: SpO2 Av % Min: 94 % Max: 100 % Supplemental O2: O2 Flow Rate (L/min): 4 L/min General appearance: No apparent distress, appears stated age and cooperative with exam, obese female in NAD, AAOx4 Respiratory: diminished Cardiovascular: Regular rate and rhythm with no murmur Abdomen: Soft, non-tender, non-distended Skin: Skin color, texture, turgor normal. No rashes or lesions. Distal pulses intact in BL LE, no edema in BL LE Neurologic: grossly non-focal. Medications: aspirin, 81 mg, Oral, Daily atorvastatin, 40 mg, Oral, Daily cyanocobalamin, 1,000 mcg, Oral, Daily enoxaparin, 40 mg, SubCUTAneous, Daily famotidine, 20 mg, Oral, Daily insulin glargine, 25 Units, SubCUTAneous, BID insulin lispro, 0-6 Units, SubCUTAneous, TID WC And insulin lispro, 0-6 Units, SubCUTAneous, Nightly isosorbide mononitrate ER, 30 mg, Oral, Daily linaGLIPtin, 5 mg, Oral, Daily methenamine hippurate, 1 g, Oral, BID metoprolol succinate XL, 25 mg, Oral, Daily mometasone-formoterol, 2 puff, Inhalation, BID ranolazine, 1,000 mg, Oral, BID senna-docusate sodium, 1 tablet, Oral, BID venlafaxine XR, 75 mg, Oral, Daily Assessment Acute metabolic encephalopathy Waxing and waning mentation Recent Hx of Enterococcus faecalis UTI and bacteremia PICC in place already was on ertapenem with completion date of 03/08/24 ID on consult, hold off on abx, repeat BC in the AM per discussion with ID Mentation waxes and wanes per patient CT of head negative Malfunctioning PICC Unable to be flushed May need either replacement vs removal if no further abx indicated per ID CKD stage 3 Cr baseline of 1.2-1.4 DM type 2 with hyperglycemia Diabetic diet Insulin regimen resumed Hx of COPD Chronic hypoxic respiratory failure Breathing treatments Baseline on 3-4L via NC CAD ASA and statin HLD Statin Anxiety/depression Venlafaxine HFpEF no acute exacerbation Medical Decision Making 03/06/24: patient was reported to be hallucinating at [facility] where she was getting IV abx through PICC for multidrug resistant enterococcus faecalis UTI with bacteremia. Abx were to be completed on 03/08/24. Discussed with ID today, monitor off abx, repeat BC tomorrow. CBC and BMP in the AM. 03/07/24: CT of head negative. Mentation consistent with waxing and waning process that seems to be baseline for patient. Repeat BC today. Await negative cultures, ID following. No abx currently, monitor off abx. CBC and BMP in the AM. PT/OT eval and treat. 03/08/24: await negative cultures per ID recs. Repeat BC obtained yesterday, likely not able to discharge until tomorrow vs 03/10/24. Continue to monitor for indications of active infection. Cbc and BMP in the AM. -am labs, replace lytes prn -increase activity -resume home medications as indicated -DVT prophylaxis: [x] Lovenox [] Heparin [] SCDs [x] Encourage ambulation [] Already on Anticoagulation Anticipated (more content not included)... [facility] 03-08-2024 Note Formatting of this n ote might be different from the original. Care Coordination Daily Note/Update Clinical Update: blood cultures from 03/07 resulted as normal this AM so, per 03/07 ID note, no further antimicrobial treatment is needed. No leukocytosis per this morning's labs. Discharge Plan: return to [facility] Discharge Barriers: clinical stability Chart reviewed. Messaged attending to check on clinical stability for discharge. Awaiting response back. Received response back stating, further discussion with ID yesterday they were recommending negative cultures x72 hours, so patient will not be discharged today. if labs are stable tomorrow, plan for discharge tomorrow. TCC will continue to follow. [facility] 03-08-2024 Note Formatting of this n ote might be different from the original. Care Coordination Daily Note/Update Clinical Update: blood cultures from 03/07 resulted as normal this AM so, per 03/07 ID note, no further antimicrobial treatment is needed. No leukocytosis per this morning's labs. Discharge Plan: return to [facility] Discharge Barriers: clinical stability Chart reviewed. Messaged attending to check on clinical stability for discharge. Awaiting response back. Received response back stating, further discussion with ID yesterday they were recommending negative cultures x72 hours, so patient will not be discharged today. if labs are stable tomorrow, plan for discharge tomorrow. TCC will continue to follow. [facility] 03-07-2024 Note [facility] - Infectious Diseases Attending Progress Note Subjective: Follow up for confusion while on ertapenem (for 12 days) for ESBL E coli bacteremia. She was alert, laying on bed, thought that she was still at the nursing facility, followed commands appropriately, wearing 4L O2 (baseline), appeared non-toxic. She was admitted on 03/05/24 from an ECF due to increased confusion, hallucinations and not feeling well; on presentation in ED, she mentioned that she felt fine but sometimes her consciousness waxes and wanes, she denied physically seeing or hearing anyone, her temp was 99.7 F, initial UA showed 51-100 WBC, no leukocytosis (wbc of 8.7k), elevated Cr 1.23, CXR did not show any consolidation or pulmonary edema, ertapenem was discontinued. She was recently admitted at [facility] from 02/20- 02/28/24 due to severe sepsis due to ESBL E. Coli UTI/bacteremia and was discharged on ertapenem for 2 weeks through 03/08/24. She has h/o chronic resp failure (4 L NC), poorly controlled DMand obesity disorder. She was examined; notes, labs and imaging were reviewed and treatment plan was discussed. Objective: Vitals: Patient Vitals for the past 24 hrs: BP Temp Temp src Pulse Resp SpO2 03/07/24 1143 123/65 36.8 ?C (98.2 ?F) Temporal 87 -- 100 % 03/07/24 0716 (!) 140/108 37.1 ?C (98.8 ?F) Temporal 84 17 95 % 03/06/24 1931 108/66 36.9 ?C (98.4 ?F) Temporal 92 18 95 % Physical Exam Vitals and nursing notes were reviewed. General appearance: She is obese, chronically ill-appearing, no acute distress. HEENT: Normal cephalic, atraumatic without obvious deformity. Pupils equal, round, and reactive to light. Extra ocular muscles intact. Conjunctivae/corneas clear. Neck: Supple, with full range of motion. No jugular venous distention. Trachea midline. No lymphadenopathy. Respiratory: Normal respiratory effort. Clear to auscultation, bilaterally without Rales/Wheezes/Rhonchi. Cardiovascular: Regular rate and rhythm with normal S1/S2 without murmurs, rubs or gallops. Abdomen: Soft, non-tender, non-distended with normal bowel sounds. No rebound or guarding. Musculoskeletal: 1+ lower extremity edema Skin: She has some partial-thickness skin breakdown in her sacral area Neurologic: Neurovascularly intact without any focal sensory/motor deficits. Cranial nerves grossly intact. Psych: Awake alert and oriented ?3. Pleasant and cooperative. Labs: Recent Labs 03/05/24201103/07/24226 NA 137 137 K 4.7 4.0 CL 104 106 CO2 25 27 BUN 24* 21* CREATININE 1.23* 1.12* GLUCOSE 144* 75 CALCIUM 9.1 8.7 PROT 5.7* -- BILITOT 0.4 -- ALKPHOS 95 -- AST 21 -- ALT 22 -- Recent Labs 03/05/24202903/07/24226 WBC 8.7 8.1 HGB 9.3* 8.4* HCT 29.7* 26.5* PLT 342 312 LYMPHOPCT 20.0 26.3 MONOPCT 8.1 11.0 BASOPCT 0.7 0.6 NEUTROABS 5.7 4.7 Micro: No results for input(s): COVID19 in the last 72 hours. 03/07/2024 0547 03/07/2024 08 Blood culture Site #2 - Assess for effectiveness of treatment [[id number]] Blood, Venous Preliminary result Component Value Blood Culture Blood culture incubation started P 03/07/2024 0520 03/07/2024 0801 Blood culture Site #1 - Assess for effectiveness of treatment [[id number]] Blood, Venous Preliminary result Component Value Blood Culture Blood culture incubation started P 03/05/2024204303/07/2024 0932 Urine culture [[id number]] (Abnormal) Urine, Clean Catch Preliminary result Component Value Urine Culture 50,000-90,000 CFU/mL Enterococcus raffinosus Abnormal P Susceptibility testing performed only upon request for cultures with multiple types of microorganisms below 100,000 CFU/ml. 10,000-50,000 CFU/mL Jose albicans Abnormal P 02/25/2024 1536 02/27/2024 1045 Urine culture [[id number]] (Abnormal) Urine, Clean Catch Final result Component Value Urine Culture Normal urogenital krys present 10,000-50,000 CFU/mL Jose albicans Abnormal 02/23/2024 0439 02/28/2024 1101 Blood culture Site #2 - Assess for effectiveness of treatment [[id number]] Blood, Venous Final result Component Value Blood Culture No growth at 5 days 02/23/2024 0438 02/28/2024 1101 Blood culture Site #1 - Assess for effectiveness of treatment [[id number]] Blood, Venous Final result Component Value Blood Culture No growth at 5 days Lines: Rt arm PICC Radiography/Echo/Other: CT head wo IV contrast [[id number]] Collected: 03/06/241623 Order Status: Completed Updated: 03/06/241628 Narrative: Patient Name: KIMBERLY PATEL : 1955 Exam Date/Time: 03/06/2024 16:10 Procedure: CT HEAD WO IV CONTRAST Ordering Provider: TALAMANTES JONATHAN Reason For Exam: Mental status change, unknown cause CT HEAD WITHOUT CONTRAST CLINICAL HISTORY: Mental status change, unknown cause COMPARISON: 02/21/2024 TECHNIQUE: Helical CT of the brain without contrast. Dose reducti (more content not included)... [facility] 03-07-2024 Note Formatting of this n ote might be different from the original. Per Dr. Talamantes's note, anticipated dc is for 03/08/24. Pt transport is set in WILL CALL with [facility] for 03/08/24. [facility] 03-07-2024 Note Formatting of this n ote might be different from the original. Per Dr. Talamantes's note, anticipated dc is for 03/08/24. Pt transport is set in WILL CALL with [facility] for 03/08/24. [facility] 03-07-2024 Note Hospitalist Progress Note 03/07/2024 [phone]: Please page me ([phone]) for patient care issues. [phone]: Please page [facility] [place] Hospital[place] for any issues. Subjective: Admit Date: 03/05/2024 PCP: Lucy Quick Room#: B4-450/B4-450 A Interval History: No overnight issues. Denies chest pain, sob, abdominal pain, nausea, vomiting, diarrhea, constipation, fevers, or chills. Patient without acute issues. Nursing reports intermittent hallucinations. Adult diet Regular 24HR INTAKE/OUTPUT: No intake or output data in the 24 hours ending 03/07/24 1036 Past Medical History: Past Medical History: Diagnosis Date Asthma Atherosclerosis Bullous pemphigoid CHF (congestive heart failure) (HCC) Chronic kidney disease (CKD), stage III (moderate) (HCC) Cognitive deficits COPD (chronic obstructive pulmonary disease) (HCC) Depression Diabetes mellitus (HCC) GERD (gastroesophageal reflux disease) Hyperlipidemia Hypertension Morbid obesity due to excess calories (HCC) LABS: CBC: Recent Labs 03/05/24202903/07/24226 WBC 8.7 8.1 RBC 3.19* 2.90* HGB 9.3* 8.4* HCT 29.7* 26.5* MCV 93.1 91.4 RDW 16.5* 16.8* PLT 342 312 BMP: Recent Labs 03/05/24201103/07/24226 NA 137 137 K 4.7 4.0 CL 104 106 CO2 25 27 BUN 24* 21* CREATININE 1.23* 1.12* GLUCOSE 144* 75 CALCIUM 9.1 8.7 ANIONGAP 7 5 LIVER PROFILE: Recent Labs 03/05/242011 AST 21 ALT 22 BILITOT 0.4 ALKPHOS 95 PROT 5.7* PT/INR: No results for input(s): PROTIME, INR in the last 72 hours. CARDIAC ENZYMES: No results for input(s): TROPONINI in the last 72 hours. Procalcitonin: No results found for: PROCAL COVID-19 PCR: No results for input(s): COVID19 in the last 72 hours. Objective: Vitals: BP (!) 140/108 (BP Location: Left arm, Patient Position: Lying) Pulse 84 Temp 37.1 ?C (98.8 ?F) (Temporal) Resp 17 SpO2 95% Pulse Ox: SpO2 Av.7 % Min: 95 % Max: 100 % Supplemental O2: O2 Flow Rate (L/min): 4 L/min General appearance: No apparent distress, appears stated age and cooperative with exam, obese female in NAD, AAOx4 Respiratory: diminished, no wheezing. Cardiovascular: Regular rate and rhythm with no murmur Abdomen: Soft, non-tender, non-distended Skin: Skin color, texture, turgor normal. No rashes or lesions. Distal pulses intact in BL LE, no edema in BL LE Neurologic: grossly non-focal. Medications: aspirin, 81 mg, Oral, Daily atorvastatin, 40 mg, Oral, Daily cyanocobalamin, 1,000 mcg, Oral, Daily enoxaparin, 40 mg, SubCUTAneous, Daily famotidine, 20 mg, Oral, Daily insulin glargine, 50 Units, SubCUTAneous, BID insulin lispro, 0-6 Units, SubCUTAneous, TID WC And insulin lispro, 0-6 Units, SubCUTAneous, Nightly isosorbide mononitrate ER, 30 mg, Oral, Daily linaGLIPtin, 5 mg, Oral, Daily methenamine hippurate, 1 g, Oral, BID metoprolol succinate XL, 25 mg, Oral, Daily mometasone-formoterol, 2 puff, Inhalation, BID ranolazine, 1,000 mg, Oral, BID senna-docusate sodium, 1 tablet, Oral, BID venlafaxine XR, 75 mg, Oral, Daily Assessment Acute metabolic encephalopathy Waxing and waning mentation Recent Hx of Enterococcus faecalis UTI and bacteremia PICC in place already was on ertapenem with completion date of 03/08/24 ID on consult, hold off on abx, repeat BC in the AM per discussion with ID Mentation waxes and wanes per patient CT of head negative Malfunctioning PICC Unable to be flushed May need either replacement vs removal if no further abx indicated per ID CKD stage 3 Cr baseline of 1.2-1.4 DM type 2 with hyperglycemia Diabetic diet Insulin regimen resumed Hx of COPD Chronic hypoxic respiratory failure Breathing treatments Baseline on 3-4L via NC CAD ASA and statin HLD Statin Anxiety/depression Venlafaxine HFpEF no acute exacerbation Medical Decision Making 03/06/24: patient was reported to be hallucinating at [facility] where she was getting IV abx through PICC for multidrug resistant enterococcus faecalis UTI with bacteremia. Abx were to be completed on 03/08/24. Discussed with ID today, monitor off abx, repeat BC tomorrow. CBC and BMP in the AM. 03/07/24: CT of head negative. Mentation consistent with waxing and waning process that seems to be baseline for patient. Repeat BC today. Await negative cultures, ID following. No abx currently, monitor off abx. CBC and BMP in the AM. PT/OT eval and treat. -am labs, replace lytes prn -increase activity -resume home medications as indicated -DVT prophylaxis: [x] Lovenox [] Heparin [] SCDs [x] Encourage ambulation [] Already on Anticoagulation Anticipated Discharge - Date - 03/08 - Location - Home - Pending the following - stable mentation, abx recs from ID, consultants clearance. Toxic drug monitoring/narrow therapeutic index drug monitoring : # Drug name : # Route administered : # Method of monitoring : Extended Emergency Contact In (more content not included)... [facility] 03-07-2024 Note Formatting of this n ote is different from the original. Images from the original note were not included. Care Management Progress Note Repeat blood cultures this am. Urine culture in process. Monitor off iv antibiotics. [facility]. . Discharge Milestones and Delays Expected Date/Time: 03/09/[address] discharge order Complete med reconciliation Case mgmt discharge readiness Clinical Stability Diagnsotic Workup Expected Discharge History Expected Date/Time Set By Reviewed At 03/09/2024 Eboni Fletcher MD 03/06/2024 1:18 PM 03/08/2024 Eboni Fletcher MD 03/06/2024 7:05 AM 03/06/2024 Janie Cortez MD 03/05/2024 11:00 PM Length of Stay (Days): 1 GMLOS: 3.4 [facility] 03-07-2024 Note Formatting of this n ote is different from the original. Images from the original note were not included. Care Management Progress Note Repeat blood cultures this am. Urine culture in process. Monitor off iv antibiotics. Discharge plan [facility]. [facility] is [facility]. . Discharge Milestones and Delays Expected Date/Time: 03/09/[address] discharge order Complete med reconciliation Case mgmt discharge readiness Clinical Stability Diagnsotic Workup Expected Discharge History Expected Date/Time Set By Reviewed At 03/09/2024 Eboni Fletcher MD 03/06/2024 1:18 PM 03/08/2024 Eboni Fletcher MD 03/06/2024 7:05 AM 03/06/2024 Janie Cortez MD 03/05/2024 11:00 PM Length of Stay (Days): 1 GMLOS: 3.4 [facility] 03-07-2024 Note Care Management Prog ress Note Repeat blood cultures this am. Urine culture in process. Monitor off iv antibiotics. Discharge plan [facility]. Patient is [facility]. . Discharge Milestones and Delays Expected Date/Time: 03/09/[address] discharge order Complete med reconciliation Case mgmt discharge readiness Clinical Stability Diagnsotic Workup Expected Discharge History Expected Date/Time Set By Reviewed At 03/09/2024 Eboni Fletcher MD 03/06/2024 1:18 PM 03/08/2024 Eboni Fletcher MD 03/06/2024 7:05 AM 03/06/2024 Janie Cortez MD 03/05/2024 11:00 PM Length of Stay (Days): 1 GMLOS: 3.4 [facility] 03-06-2024 Hospital Discharg e instructions Erica Conley RN - 03/06/2024 3:16 PM EDT Continuity of Care Form Patient Name: Kimberly Patel : 1955 Admit date: 03/05/2024 Discharge date: 03/09/2024 Code Status Order: Full Code Advance Directives: N Admitting Physician: Eboni Fletcher MD PCP: Lucy Quick Discharging Nurse: Erica Conley Discharging Hospital Unit/Room#: B4-450/B4-450 A Discharging Unit Emergency Contact: Extended Emergency Contact Information Primary Emergency Contact: Alexandro Cote Mobile Relation: Daughter Preferred language: 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 Past Surgical History: Past Surgical History: Procedure Laterality Date CHOLECYSTECTOMY COLONOSCOPY throat biopsy Immunization History: There is no immunization history on file for this patient. Active Problems: Medical Problems Problem List * (Principal) Encephalopathy acute Sphenoid sinusitis, unspecified chronicity Bullous pemphigoid Acute on chronic diastolic congestive heart failure (HCC) Bipolar disorder, most recent episode depressed ([facility]/HCC) ([facility]) UTI (urinary tract infection) Physical debility (Chronic) Other hyperlipidemia CAD (coronary artery disease) Primary hypertension Neuropathy Bacteremia Acute kidney injury superimposed on CKD ([facility]) ([facility]) Type 2 diabetes mellitus with diabetic polyneuropathy, with long-term current use of insulin ([facility]) Isolation/Infection: Contact ESBL Nurse Assessment: Last Vital Signs: BP 108/76 (BP Location: Left leg, Patient Position: Lying) Pulse 86 Temp (!) 35.7 C (96.2 F) (Temporal) Resp 16 SpO2 100% Last documented pain score (0-10 scale): Last Weight: Wt Readings from Last 1 Encounters: 02/25/24 113 kg (249 lb 6.4 oz) Mental Status: ANN Patient Mental Status: alert IV Access: ANN IV Access: None Nursing Mobility/ADLs: Walking Total assistance Transfer Total assistance Bathing Total assistance Dressing Total assistance Toileting Total assistance Feeding Minimal assistance Transit Clerk Minimal assistance Med Delivery yes Wound Care Documentation and Therapy: Wound/Incision 02/21/24 Pressure Injury Buttock Left (Active) Number of days: 13 Elimination: Continence: Bowel: no Bladder: no Urinary Catheter: None Colostomy/Ileostomy/Ileal Conduit: None Date of Last BM: 03/07/2024 No intake or output data in the 24 hours ending 03/06/24 1516 No intake/output data recorded. Safety Concerns: at risk for falls Impairments/Disabilities: none Nutrition Therapy: Current Nutrition Therapy: Oral diet: general Routes of Feeding: oral Liquids: no restrictions Daily Fluid Restriction: no Last Modified Barium Swallow with Video (Video Swallowing Test): not done Treatments at the Time of Hospital Discharge: Respiratory Treatments: Oxygen Therapy: is on oxygen at 4 L/min per nasal cannula. Ventilator: No ventilator support Rehab Therapies: physical therapy, occupational therapy, nursing, and aide Weight Bearing Status/Restrictions: no restriction Other Medical Equipment (for information only, NOT a DME order): shower chair Other Treatments: Patient's personal belongings (please select all that are sent with patient): none RN SIGNATURE: MANAGEMENT/SOCIAL WORK SECTION Inpatient Status Date: 03/06/2024 Readmission Risk Assessment Score: @[email or web address]@ Discharging to Facility/ Agency Name: [facility] Address:[address] [place] [address] Dialysis Facility (if applicable) Name: Address: Dialysis Schedule: Phone: Fax: Short Order Fry Cook/Masticator signature: ICIAN SECTION Prognosis: excellent Condition at Discharge: stable Rehab Potential (if transferring to Rehab): excellent Recommended Labs or Other Treatments After Discharge: none Physician Certification: I certify the above information and transfer of Kimberly Patel is necessary for the continuing treatment of the diagnosis listed and that she requires senior care facility for less than 30 days. Update Admission H&P: No change in H&P PHYSICIAN SIGNATURE: documented in this encounter [facility] 03-06-2024 Note Formatting of this n ote might be different from the original. Referral placed to [facility] for return via [facility] per TCC request. Await review and response regarding ability to accept. TCC notified. [facility] 03-06-2024 Note Formatting of this n ote might be different from the original. Referral placed to [facility] for return via [facility] per TCC request. Await review and response regarding ability to accept. TCC notified. [facility] 03-06-2024 Note Referral placed to [facility] for return via [facility] per TCC request. Await review and response regarding ability to accept. TCC notified. [facility] 03-06-2024 Consult note Associated Order (s): IP CONSULT TO INFECTIOUS DISEASES Images from the original note were not included. [facility] - Infectious Diseases Attending Consult Note Reason for Consult: Confusion, on ertapenem for ESBL E coli bacteremia. History of Present Illness: 68 y/o female was admitted on 03/05/24 from an ECF due to increased confusion, hallucinations and not feeling well; on presentation in ED, she mentioned that she felt fine but sometimes her consciousness waxes and wanes, she denied physically seeing or hearing anyone, her temp was 99.7 F, UA showed 51-100 WBC, cbc showed wbc of 8.7k, Cr 1.23, CXR did not show any consolidation or pulmonary edema, ertapenem was continued. She was seen, found her alert, laying on bed, thought that she was still at the nursing facility, followed commands appropriately, wearing 4L O2 (baseline), appeared non-toxic. She was recently admitted at [facility] from 02/20- 02/28/24 due to severe sepsis due to ESBL E. Coli UTI/bacteremia and was discharged on ertapenem for 2 weeks through 03/08/24. She has h/o chronic resp failure (4 L NC), poorly controlled DM and obesity disorder. She was examined; notes, labs and imaging were reviewed and treatment plan was discussed. Past Medical History: Past Medical History: Diagnosis Date CHF (congestive heart failure) (CMS/HCC) COPD (chronic obstructive pulmonary disease) (CMS/HCC) Diabetes mellitus (CMS/HCC) Past Surgical History: Past Surgical History: Procedure Laterality Date CHOLECYSTECTOMY COLONOSCOPY throat biopsy Current Medications: Current Facility-Administered Medications Medication Dose Route Frequency Provider Last Rate Last Admin acetaminophen (Tylenol) tablet 650 mg 650 mg Oral q6h PRN Eboni Fletcher MD Or acetaminophen (Tylenol) suppository 650 mg 650 mg Rectal q6h PRN Eboni Fletcher MD alteplase (Cathflo Activase) 2 mg in sterile water 1 mL injection 2 mg IntraCATHeter PRN Eboni Fletcher MD aspirin EC tablet 81 mg 81 mg Oral Daily Eboni Fletcher MD 81 mg at 03/06/24 1152 atorvastatin (Lipitor) tablet 40 mg 40 mg Oral Daily Eboni Fletcher MD 40 mg at 03/06/24 1008 cyanocobalamin (Vitamin B-12) tablet 1,000 mcg 1,000 mcg Oral Daily Eboni Fletcher MD 1,000 mcg at 03/06/24 1153 dextrose 5 % infusion 100 mL/hr IntraVENous PRN Eboni Fletcher MD dextrose 50 % solution 12.5 g 12.5 g IntraVENous PRN Eboni Fletcher MD enoxaparin (Lovenox) syringe 40 mg 40 mg SubCUTAneous Daily Eboni Fletcher MD 40 mg at 03/06/24 1008 ertapenem (INVanz) 1,000 mg in sodium chloride 0.9 % 50 mL IVPB Mini-Bag Plus 1,000 mg IntraVENous q24h Eboni Fletcher MD 100 mL/hr at 03/06/24 1404 1,000 mg at 03/06/24 1404 famotidine (Pepcid) tablet 20 mg 20 mg Oral Daily Eboni Fletcher MD 20 mg at 03/06/24 1008 glucagon (human recombinant) injection 1 mg 1 mg IntraMUSCular PRN Eboni Fletcher MD glucose oral gel 15 g 15 g Oral PRN Eboni Fletcher MD hydrOXYzine pamoate (Vistaril) capsule 25 mg 25 mg Oral q8h PRN Eboni Fletcher MD insulin glargine (Lantus) injection 50 Units 50 Units SubCUTAneous BID Eboni Fletcher MD 50 Units at 03/06/24 1152 Insulin Lispro (Humalog) injection 0-6 Units 0-6 Units SubCUTAneous TID Eboni Fletcher MD 1 Units at 03/06/24 1155 And Insulin Lispro (Humalog) injection 0-6 Units 0-6 Units SubCUTAneous Nightly Eboni Fletcher MD Insulin Lispro (Humalog) injection 0-6 Units 0-6 Units SubCUTAneous TID WC Eboni Fletcher MD And Insulin Lispro (Humalog) injection 0-6 Units 0-6 Units SubCUTAneous Nightly Eboni Fletcher MD isosorbide mononitrate ER (Imdur) 24 hr tablet 30 mg 30 mg Oral Daily Eboni Fletcher MD 30 mg at 03/06/24 1008 linaGLIPtin (Tradjenta) tablet 5 mg 5 mg Oral Daily Eboni Fletcher MD 5 mg at 03/06/24 1008 methenamine hippurate (Hiprex) tablet 1 g 1 g Oral BID Eboni Fletcher MD 1 g at 03/06/24 1152 metoprolol succinate XL (Toprol-XL) 24 hr tablet 25 mg 25 mg Oral Daily Eboni Fletcher MD 25 mg at 03/06/24 1008 mometasone-formoterol (Dulera 200) 200-5 MCG/ACT inhaler 2 puff 2 puff Inhalation BID Eboni Fletcher MD 2 puff at 03/06/24 1153 naloxone (Narcan) injection 0.4 mg 0.4 mg IntraVENous q5 min PRN Eboni Fletcher MD oxyCODONE-acetaminophen (Percocet) 5-325 MG per tablet 1 tablet 1 tablet Oral q6h PRN Eboni Fletcher MD polyethylene glycol (PEG) 3350 (Miralax) packet 17 g 17 g Oral Daily PRN Eboni Fletcher MD ranolazine (Ranexa) 12 hr tablet 1,000 mg 1,000 mg Oral BID Eboni Fletcher MD 1,000 mg at 03/06/24 1008 senna-docusate sodium (Senokot-S) 8.6-50 MG tablet 1 tablet 1 tablet Oral BID Eboni Fletcher MD 1 tablet at 03/06/24 1008 venlafaxine XR (Effexor XR) 24 hr capsule 75 mg 75 mg Oral Daily Eboni Fletcher MD 75 mg at 03/06/24 1008 Allergies: Allergies Allergen Reactions Dulaglutide Empagliflozin Hydromorphone Metformin Morphine Ondansetron Penicillins Social History: Social History Socioeconomic History Marital status: Spouse name: Not on file Number of children: Not on file Years of education: Not on file Highest education level: Not on file Occupational History Not on file Tobacco Use Smoking status: Former Smokeless tobacco: Never Substance and Sexual Activity Alcohol use: Not on file Drug use: Not on file Sexual activity: Not on file Other Topics Concern Not on file Social History Narrative Home with daughter Social Determinants of Health Financial Resource Strain: Not on file Food Insecurity: No Food Insecurity (02/22/2024) Hunger Vital Sign Worried About Running Out of Food in the Last Year: Never true Ran Out of Food in the Last Year: Never true Transportation Needs: No Transportation Needs (02/22/2024) PRAPARE - Transportation Lack of Transportation (Medical): No Lack of Transportation (Non-Medical): No Physical Activity: Not on file Stress: Not on file Social Connections: Not on file Intimate Partner Violence: Not At Risk (02/22/2024) Humiliation, Afraid, Rape, and Kick questionnaire Fear of Current or Ex-Partner: No Emotionally Abused: No Physically Abused: No Sexually Abused: No Housing Stability: Unknown (02/22/2024) Housing Stability Vital Sign Unable to Pay for Housing in the Last Year: No Number of Places Lived in the Last Year: Not on file Unstable Housing in the Last Year: No Family History: No family history on file. Review of Systems: Review of Systems Constitutional: Positive for fever. HENT: Negative for ear pain and sinus pain. Eyes: Negative for pain. Respiratory: Positive for shortness of breath. Negative for cough. Cardiovascular: Negative for chest pain. Gastrointestinal: Negative for abdominal pain. Endocrine: Negative for polydipsia. Genitourinary: Negative for dysuria. Musculoskeletal: Negative for arthralgias. Skin: Negative for color change. Neurological: Negative for dizziness. Psychiatric/Behavioral: Positive for confusion and hallucinations. Vitals: Patient Vitals for the past 24 hrs: BP Temp Temp src Pulse Resp SpO2 03/06/24 1413 108/76 (!) 35.7 C (96.2 F) Temporal 86 16 100 % 03/06/24 1009 138/80 -- -- 88 20 98 % 03/06/24 0528 131/74 -- -- 93 18 100 % 03/06/24 0130 (!) 142/68 -- -- 92 -- 99 % 03/05/24 2231 (!) 112/90 -- -- 88 20 100 % 03/05/24 1923 -- -- -- -- -- 100 % 03/05/24 1912 (!) 155/59 37.6 C (99.7 F) -- 90 18 100 % Physical Exam: Physical Exam Vitals and nursing notes were reviewed. General appearance: She is obese, chronically ill-appearing, no acute distress. HEENT: Normal cephalic, atraumatic without obvious deformity. Pupils equal, round, and reactive to light. Extra ocular muscles intact. Conjunctivae/corneas clear. Neck: Supple, with full range of motion. No jugular venous distention. Trachea midline. No lymphadenopathy. Respiratory: Normal respiratory effort. Clear to auscultation, bilaterally without Rales/Wheezes/Rhonchi. Cardiovascular: Regular rate and rhythm with normal S1/S2 without murmurs, rubs or gallops. Abdomen: Soft, non-tender, non-distended with normal bowel sounds. No rebound or guarding. Musculoskeletal: 1+ lower extremity edema Skin: She has some partial-thickness skin breakdown in her sacral area Neurologic: Neurovascularly intact without any focal sensory/motor deficits. Cranial nerves grossly intact. Psych: Awake alert and oriented 3. Pleasant and cooperative. Labs: Recent Labs 03/05/242011 NA 137 K 4.7 CL 104 CO2 25 BUN 24* CREATININE 1.23* GLUCOSE 144* CALCIUM 9.1 PROT 5.7* BILITOT 0.4 ALKPHOS 95 AST 21 ALT 22 Recent Labs 03/05/242029 WBC 8.7 HGB 9.3* HCT 29.7* PLT 342 LYMPHOPCT 20.0 MONOPCT 8.1 BASOPCT 0.7 NEUTROABS 5.7 Micro: No results for input(s): COVID19 in the last 72 hours. 03/05/2024 2044 03/05/2024 2105 Urine culture [[id number]] Urine, Clean Catch In process Component Value No component results 02/25/2024 1536 02/27/2024 1045 Urine culture [[id number]] (Abnormal) Urine, Clean Catch Final result Component Value Urine Culture Normal urogenital krys present 10,000-50,000 CFU/mL Jose albicans Abnormal 02/23/2024 0439 02/28/2024 1101 Blood culture Site #2 - Assess for effectiveness of treatment [[id number]] Blood, Venous Final result Component Value Blood Culture No growth at 5 days 02/23/2024 0438 02/28/2024 1101 Blood culture Site #1 - Assess for effectiveness of treatment [[id number]] Blood, Venous Final result Component Value Blood Culture No growth at 5 days 02/21/2024 1759 02/25/2024 0824 Urine culture [[id number]] (Abnormal) Urine, Clean Catch Final result Component Value Urine Culture Normal urogenital krys present >100,000 CFU/mL Escherichia coli Abnormal This phenotype is suggestive of an ESBL-producing organism. Treatment with beta-lactam antibiotics other than carbapenems may not be effective. >100,000 CFU/mL Enterococcus faecalis Abnormal 02/21/2024 1135 02/21/2024 1628 COVID-19, Flu A/B, and RSV Combo [[id number]] Swab from Nasopharynx Final result Component Value SARS-CoV-2 Not Detected Respiratory Syncytial Virus Not Detected Influenza A Not Detected Influenza B Not Detected 02/21/2024 1124 02/24/2024 0948 Blood culture Site #1 - Suspected Infection [[id number]] (Abnormal) Blood, Venous Final result Component Value Blood Culture Escherichia coli Panic This phenotype is suggestive of an ESBL-producing organism. Treatment with beta-lactam antibiotics other than carbapenems may not be effective. This is an edited result. Previous organism was Gram-negative bacilli on 02/22/2024 at 0622 EDT. 02/21/2024 1124 02/22/2024 0622 Blood Culture Identification - Anaerobic [[id number]] (Abnormal) Blood, Venous Final result Component Value Escherichia coli Detected Abnormal CTX-M (ESBL gene) Detected Abnormal Lines: Rt arm PICC Radiography/Echo/Other: Procedure Component Value Units Date/Time XR chest 1 view [[id number]] Collected: 03/05/242023 Order Status: Completed Updated: 03/05/242025 Narrative: [facility] 1955 [id number] Exam Date/Time: 03/05/2024 20:11 Procedure: XR CHEST 1 VIEW Ordering Provider: CORTEZ MARK Reason For Exam: ALTERED MENTAL STATUS EXAM TYPE: RADIOLOGIC EXAMINATION, CHEST, SINGLE VIEW FRONTAL (CXR SINGLE VIEW) EXAM DATE AND TIME: 03/05/2024 8:11 PM EDT INDICATION: Altered mental status COMPARISON: None available. TECHNIQUE: A single frontal view of the thorax was obtained and reviewed. Special views: None. Impression: FINDINGS/IMPRESSION: The patient is somewhat rotated 1. Lines/Tubes/Devices/Hardware: Right PICC with catheter tip overlying the SVC 2. Lungs: No consolidation or pulmonary edema. 3. Pleura: No pneumothorax or large pleural effusions. 4. Heart and mediastinum: Normal cardiomediastinal contours. Report Dictated on Electronically Signed By: Milad Kirkpatrick MD Electronically Signed Date/Time: 03/05/2024 8:25 PM EDT Antimicrobials,Start/End Dates: Ceftr 02/20- Erta 02/21- 03/06 Impression: Acute confusion and hallucination. Recent ESBL-E coli bacteremia and UTI. Chronic resp failure (4 L O2 NC baseline). H/o Poorly controlled DM. Obesity disorder. Plan: Pt sick due to acute confusion and hallucination. Low grade fever and some pyuria. CXR unremarkable. No leukocytosis. Confusion could be due to ertapenem though happened towards the end of treatment that raises doubt. Her ertapenem should have been completed on 03/08/24 (2 days short). Discontinue ertapenem, culture blood x2 in AM; if cxs remain negative, no further antimicrobial treatment. Her pyuria decreased from 51-100 to 26-50. Moderate level complexity medical decision making. ID will follow in hospital. Thank you. Please call with any further question. Total time 55 minutes on this day of encounter includes counseling, coordinating plan of care, record and documentation review before and after visit including documentation and time not explicitly included on EMR time stamp for accounting for open encounter. [facility] 03-06-2024 Consult note Associated Order (s): IP CONSULT TO INFECTIOUS DISEASES Images from the original note were not included. [facility] - Infectious Diseases Attending Consult Note Reason for Consult: Confusion, on ertapenem for ESBL E coli bacteremia. History of Present Illness: 68 y/o female was admitted on 03/05/24 from an ECF due to increased confusion, hallucinations and not feeling well; on presentation in ED, she mentioned that she felt fine but sometimes her consciousness waxes and wanes, she denied physically seeing or hearing anyone, her temp was 99.7 F, UA showed 51-100 WBC, cbc showed wbc of 8.7k, Cr 1.23, CXR did not show any consolidation or pulmonary edema, ertapenem was continued. She was seen, found her alert, laying on bed, thought that she was still at the nursing facility, followed commands appropriately, wearing 4L O2 (baseline), appeared non-toxic. She was recently admitted at [facility] from 02/20- 02/28/24 due to severe sepsis due to ESBL E. Coli UTI/bacteremia and was discharged on ertapenem for 2 weeks through 03/08/24. She has h/o chronic resp failure (4 L NC), poorly controlled DM and obesity disorder. She was examined; notes, labs and imaging were reviewed and treatment plan was discussed. Past Medical History: Past Medical History: Diagnosis Date CHF (congestive heart failure) ([facility]/HCC) COPD (chronic obstructive pulmonary disease) ([facility]/HCC) Diabetes mellitus (CMS/HCC) Past Surgical History: Past Surgical History: Procedure Laterality Date CHOLECYSTECTOMY COLONOSCOPY throat biopsy Current Medications: Current Facility-Administered Medications Medication Dose Route Frequency Provider Last Rate Last Admin acetaminophen (Tylenol) tablet 650 mg 650 mg Oral q6h PRN Eboni Fletcher MD Or acetaminophen (Tylenol) suppository 650 mg 650 mg Rectal q6h PRN Eboni Fletcher MD alteplase (Cathflo Activase) 2 mg in sterile water 1 mL injection 2 mg IntraCATHeter PRN Eboni Fletcher MD aspirin EC tablet 81 mg 81 mg Oral Daily Eboni Fletcher MD 81 mg at 03/06/24 1152 atorvastatin (Lipitor) tablet 40 mg 40 mg Oral Daily Eboni Fletcher MD 40 mg at 03/06/24 1008 cyanocobalamin (Vitamin B-12) tablet 1,000 mcg 1,000 mcg Oral Daily Eboni Fletcher MD 1,000 mcg at 03/06/24 1153 dextrose 5 % infusion 100 mL/hr IntraVENous PRN Eboni Fletcher MD dextrose 50 % solution 12.5 g 12.5 g IntraVENous PRN Eboni Fletcher MD enoxaparin (Lovenox) syringe 40 mg 40 mg SubCUTAneous Daily Eboni Fletcher MD 40 mg at 03/06/24 1008 ertapenem (INVanz) 1,000 mg in sodium chloride 0.9 % 50 mL IVPB Mini-Bag Plus 1,000 mg IntraVENous q24h Eboni Fletcher MD 100 mL/hr at 03/06/24 1404 1,000 mg at 03/06/24 1404 famotidine (Pepcid) tablet 20 mg 20 mg Oral Daily Eboni Fletcher MD 20 mg at 03/06/24 1008 glucagon (human recombinant) injection 1 mg 1 mg IntraMUSCular PRN Eboni Fletcher MD glucose oral gel 15 g 15 g Oral PRN Eboni Fletcher MD hydrOXYzine pamoate (Vistaril) capsule 25 mg 25 mg Oral q8h PRN Eboni Fletcher MD insulin glargine (Lantus) injection 50 Units 50 Units SubCUTAneous BID Eboni Fletcher MD 50 Units at 03/06/24 1152 Insulin Lispro (Humalog) injection 0-6 Units 0-6 Units SubCUTAneous TID Eboni Fletcher MD 1 Units at 03/06/24 1155 And Insulin Lispro (Humalog) injection 0-6 Units 0-6 Units SubCUTAneous Nightly Eboni Fletcher MD Insulin Lispro (Humalog) injection 0-6 Units 0-6 Units SubCUTAneous TID Eboni Fletcher MD And Insulin Lispro (Humalog) injection 0-6 Units 0-6 Units SubCUTAneous Nightly Eboni Fletcher MD isosorbide mononitrate ER (Imdur) 24 hr tablet 30 mg 30 mg Oral Daily Eboni Fletcher MD 30 mg at 03/06/24 1008 linaGLIPtin (Tradjenta) tablet 5 mg 5 mg Oral Daily Eboni Fletcher MD 5 mg at 03/06/24 1008 methenamine hippurate (Hiprex) tablet 1 g 1 g Oral BID Eboni Fletcher MD 1 g at 03/06/24 1152 metoprolol succinate XL (Toprol-XL) 24 hr tablet 25 mg 25 mg Oral Daily Eboni Fletcher MD 25 mg at 03/06/24 1008 mometasone-formoterol (Dulera 200) 200-5 MCG/ACT inhaler 2 puff 2 puff Inhalation BID Eboni Fletcher MD 2 puff at 03/06/24 1153 naloxone (Narcan) injection 0.4 mg 0.4 mg IntraVENous q5 min PRN Eboni Fletcher MD oxyCODONE-acetaminophen (Percocet) 5-325 MG per tablet 1 tablet 1 tablet Oral q6h PRN Eboni Fletcher MD polyethylene glycol (PEG) 3350 (Miralax) packet 17 g 17 g Oral Daily PRN Eboni Fletcher MD ranolazine (Ranexa) 12 hr tablet 1,000 mg 1,000 mg Oral BID Eboni Fletcher MD 1,000 mg at 03/06/24 1008 senna-docusate sodium (Senokot-S) 8.6-50 MG tablet 1 tablet 1 tablet Oral BID Eboni Fletcher MD 1 tablet at 03/06/24 1008 venlafaxine XR (Effexor XR) 24 hr capsule 75 mg 75 mg Oral Daily Eboni Fletcher MD 75 mg at 03/06/24 1008 Allergies: Allergies Allergen Reactions Dulaglutide Empagliflozin Hydromorphone Metformin Morphine Ondansetron Penicillins Social History: Social History Socioeconomic History Marital status: Spouse name: Not on file Number of children: Not on file Years of education: Not on file Highest education level: Not on file Occupational History Not on file Tobacco Use Smoking status: Former Smokeless tobacco: Never Substance and Sexual Activity Alcohol use: Not on file Drug use: Not on file Sexual activity: Not on file Other Topics Concern Not on file Social History Narrative Home with daughter Social Determinants of Health Financial Resource Strain: Not on file Food Insecurity: No Food Insecurity (02/22/2024) Hunger Vital Sign Worried About Running Out of Food in the Last Year: Never true Ran Out of Food in the Last Year: Never true Transportation Needs: No Transportation Needs (02/22/2024) PRAPARE - Transportation Lack of Transportation (Medical): No Lack of Transportation (Non-Medical): No Physical Activity: Not on file Stress: Not on file Social Connections: Not on file Intimate Partner Violence: Not At Risk (02/22/2024) Humiliation, Afraid, Rape, and Kick questionnaire Fear of Current or Ex-Partner: No Emotionally Abused: No Physically Abused: No Sexually Abused: No Housing Stability: Unknown (02/22/2024) Housing Stability Vital Sign Unable to Pay for Housing in the Last Year: No Number of Places Lived in the Last Year: Not on file Unstable Housing in the Last Year: No Family History: No family history on file. Review of Systems: Review of Systems Constitutional: Positive for fever. HENT: Negative for ear pain and sinus pain. Eyes: Negative for pain. Respiratory: Positive for shortness of breath. Negative for cough. Cardiovascular: Negative for chest pain. Gastrointestinal: Negative for abdominal pain. Endocrine: Negative for polydipsia. Genitourinary: Negative for dysuria. Musculoskeletal: Negative for arthralgias. Skin: Negative for color change. Neurological: Negative for dizziness. Psychiatric/Behavioral: Positive for confusion and hallucinations. Vitals: Patient Vitals for the past 24 hrs: BP Temp Temp src Pulse Resp SpO2 03/06/24 1413 108/76 (!) 35.7 C (96.2 F) Temporal 86 16 100 % 03/06/24 1009 138/80 -- -- 88 20 98 % 03/06/24 0528 131/74 -- -- 93 18 100 % 03/06/24 0130 (!) 142/68 -- -- 92 -- 99 % 03/05/24 2231 (!) 112/90 -- -- 88 20 100 % 03/05/24 1923 -- -- -- -- -- 100 % 03/05/24 1912 (!) 155/59 37.6 C (99.7 F) -- 90 18 100 % Physical Exam: Physical Exam Vitals and nursing notes were reviewed. General appearance: She is obese, chronically ill-appearing, no acute distress. HEENT: Normal cephalic, atraumatic without obvious deformity. Pupils equal, round, and reactive to light. Extra ocular muscles intact. Conjunctivae/corneas clear. Neck: Supple, with full range of motion. No jugular venous distention. Trachea midline. No lymphadenopathy. Respiratory: Normal respiratory effort. Clear to auscultation, bilaterally without Rales/Wheezes/Rhonchi. Cardiovascular: Regular rate and rhythm with normal S1/S2 without murmurs, rubs or gallops. Abdomen: Soft, non-tender, non-distended with normal bowel sounds. No rebound or guarding. Musculoskeletal: 1+ lower extremity edema Skin: She has some partial-thickness skin breakdown in her sacral area Neurologic: Neurovascularly intact without any focal sensory/motor deficits. Cranial nerves grossly intact. Psych: Awake alert and oriented 3. Pleasant and cooperative. Labs: Recent Labs 03/05/242011 NA 137 K 4.7 CL 104 CO2 25 BUN 24* CREATININE 1.23* GLUCOSE 144* CALCIUM 9.1 PROT 5.7* BILITOT 0.4 ALKPHOS 95 AST 21 ALT 22 Recent Labs 03/05/242029 WBC 8.7 HGB 9.3* HCT 29.7* PLT 342 LYMPHOPCT 20.0 MONOPCT 8.1 BASOPCT 0.7 NEUTROABS 5.7 Micro: No results for input(s): COVID19 in the last 72 hours. 03/05/2024 2044 03/05/2024 2105 Urine culture [[id number]] Urine, Clean Catch In process Component Value No component results 02/25/2024 1536 02/27/2024 1045 Urine culture [[id number]] (Abnormal) Urine, Clean Catch Final result Component Value Urine Culture Normal urogenital krys present 10,000-50,000 CFU/mL Jose albicans Abnormal 02/23/2024 0439 02/28/2024 1101 Blood culture Site #2 - Assess for effectiveness of treatment [[id number]] Blood, Venous Final result Component Value Blood Culture No growth at 5 days 02/23/2024 0438 02/28/2024 1101 Blood culture Site #1 - Assess for effectiveness of treatment [[id number]] Blood, Venous Final result Component Value Blood Culture No growth at 5 days 02/21/2024 1759 02/25/2024 0824 Urine culture [[id number]] (Abnormal) Urine, Clean Catch Final result Component Value Urine Culture Normal urogenital krys present >100,000 CFU/mL Escherichia coli Abnormal This phenotype is suggestive of an ESBL-producing organism. Treatment with beta-lactam antibiotics other than carbapenems may not be effective. >100,000 CFU/mL Enterococcus faecalis Abnormal 02/21/2024 1135 02/21/2024 1628 COVID-19, Flu A/B, and RSV Combo [[id number]] Swab from Nasopharynx Final result Component Value SARS-CoV-2 Not Detected Respiratory Syncytial Virus Not Detected Influenza A Not Detected Influenza B Not Detected 02/21/2024 1124 02/24/2024 0948 Blood culture Site #1 - Suspected Infection [[id number]] (Abnormal) Blood, Venous Final result Component Value Blood Culture Escherichia coli Panic This phenotype is suggestive of an ESBL-producing organism. Treatment with beta-lactam antibiotics other than carbapenems may not be effective. This is an edited result. Previous organism was Gram-negative bacilli on 02/22/2024 at 0622 EDT. 02/21/2024 1124 02/22/2024 0622 Blood Culture Identification - Anaerobic [[id number]] (Abnormal) Blood, Venous Final result Component Value Escherichia coli Detected Abnormal CTX-M (ESBL gene) Detected Abnormal Lines: Rt arm PICC Radiography/Echo/Other: Procedure Component Value Units Date/Time XR chest 1 view [[id number]] Collected: 03/05/242023 Order Status: Completed Updated: 03/05/242025 Narrative: Patient Name: KIMBERLY PATEL : 1955 Exam Date/Time: 03/05/2024 20:11 Procedure: XR CHEST 1 VIEW Ordering Provider: CORTEZ MARK Reason For Exam: ALTERED MENTAL STATUS EXAM TYPE: RADIOLOGIC EXAMINATION, CHEST, SINGLE VIEW FRONTAL (CXR SINGLE VIEW) EXAM DATE AND TIME: 03/05/2024 8:11 PM EDT INDICATION: Altered mental status COMPARISON: None available. TECHNIQUE: A single frontal view of the thorax was obtained and reviewed. Special views: None. Impression: FINDINGS/IMPRESSION: The patient is somewhat rotated 1. Lines/Tubes/Devices/Hardware: Right PICC with catheter tip overlying the SVC 2. Lungs: No consolidation or pulmonary edema. 3. Pleura: No pneumothorax or large pleural effusions. 4. Heart and mediastinum: Normal cardiomediastinal contours. Report Dictated on Electronically Signed By: Milad Kirkpatrick MD Electronically Signed Date/Time: 03/05/2024 8:25 PM EDT Antimicrobials,Start/End Dates: Ceftr 02/20- Erta 02/21- 03/06 Impression: Acute confusion and hallucination. Recent ESBL-E coli bacteremia and UTI. Chronic resp failure (4 L O2 NC baseline). H/o Poorly controlled DM. Obesity disorder. Plan: Pt sick due to acute confusion and hallucination. Low grade fever and some pyuria. CXR unremarkable. No leukocytosis. Confusion could be due to ertapenem though happened towards the end of treatment that raises doubt. Her ertapenem should have been completed on 03/08/24 (2 days short). Discontinue ertapenem, culture blood x2 in AM; if cxs remain negative, no further antimicrobial treatment. Her pyuria decreased from 51-100 to 26-50. Moderate level complexity medical decision making. ID will follow in hospital. Thank you. Please call with any further question. Total time 55 minutes on this day of encounter includes counseling, coordinating plan of care, record and documentation review before and after visit including documentation and time not explicitly included on EMR time stamp for accounting for open encounter. documented in this encounter [facility] 03-06-2024 Note Formatting of this n ote might be different from the original. Care Managment Initial Assessment Date: 03/06/2024 Patient Name: Kimberly Patel : 1955 Patient Information Source of Information: (recent assessment 02/22/24) Name/Contact Information: ALEXANDRO COTE [phone] DAUGHTER Cognition/Language: Confused at baseline Permission given to speak with patient commissary representative/caregiver as indicated: Yes Confirmation of Payer with patient/family: Yes Payer Name: MEDICARE AND [facility] MEDICAID [place]: No Confirmation of Primary Care Physician: Confirmed PCP Name: DR. QUICK Seen in last 2 years?: Yes Primary Caregiver: Other (Comment) If assistance needed, confirmed caregiver ready, willing and able to care for patient at discharge: Yes Confirmed with: STAFF AT [facility] Living Arrangements Current Residence: ([facility]) Number of Floors 1 Number of Entry Steps: (LEVEL ENTRY) Bed/Bath Levels: Both first floor Facility: [facility] Facility Name: [facility] Plan to Return: Yes Lives with: Other (Comment) (ECF) Support Systems: Children, Comments (Other) (ECF STAFF) Activities of Daily Living Ambulation: Total Care Bathing/Dressing: Total Care Elimination/Continence/Toileting : Total Care Feeding: asst .set up Who Assists with Activities of Daily Living: ECF STAFF Instrumental Activities of Daily Living Prescription Coverage: Yes Pharmacy Used: [facility] STAFF Medication Management: Medication dispenser Who assists with medication securing and setup?: [facility] Transportation/Shopping: Assistance Provider Transportation/Shopping Assistance Provider Name: PAYOR PROVIDED TRANSPORT Transportation Mode: Payer provided transport service Needs Assistance with Transportation at Discharge: Yes Meal Preparation: Assistance Provider Meal Prep Assistance Provider Name: [facility] Laundry/Cleaning: Assistance Provider Laundry/Cleaning Assistance Provider Name: [facility] Finances/Bill Paying: Assistance Provider Finances/Bill Payer Assistance Provider Name: DAUGHTER Communication: Independent, Emergency Call System Types of Care Services/Equipment Utilized Care Services: Dialysis Type: NA Durable Medical Equipment: Mohamud Lift, Hospital Bed, oxygen, Patient's Goal/Discharge Plan Patient expects to be discharged to: RETURN TO [facility] Discharge Planning Actions: Continue to follow Patient's Choice Rights and [employer] and Collaborative Relationships Disclosed as Indicated for Post-Acute Care: NA Interdisciplinary Team Engagement: Social Work Referral for: Additional Information: Inpatient status from [facility] with altered mental status. Recent hospitalization for UTI and is [facility]. ID consulted. Repeat blood culture in am, bs ac and hs with ss coverage, daily labs, us of right upper ext negative for DVT. Did call and speak with nurse Jenna at [facility] patient is mohamud lift at facility, is able to feed herself, takes pills in applesauce, is diabetic and ss coverage. She believes patient requires oxygen at the facility. Patient is [facility] at facility and Jenna believes has been there for about a year. Tentative discharge plan is to return to facility when medically stable. Did speak with patient's daughter Alexandro and she is agreeable with patient returning to [facility] when medically stable. . Vanessa Vu RN [facility] 03-06-2024 Note Formatting of this n ote might be different from the original. Care Managment Initial Assessment Date: 03/06/2024 Patient Name: Kimberly Patel : 1955 Patient Information Source of Information: (recent assessment 02/22/24) Name/Contact Information: ALEXANDRO COTE [phone] DAUGHTER Cognition/Language: Confused at baseline Permission given to speak with patient commissary representative/caregiver as indicated: Yes Confirmation of Payer with patient/family: Yes Payer Name: MEDICARE AND [facility] MEDICAID : No Confirmation of Primary Care Physician: Confirmed PCP Name: DR. QUICK Seen in last 2 years?: Yes Primary Caregiver: Other (Comment) If assistance needed, confirmed caregiver ready, willing and able to care for patient at discharge: Yes Confirmed with: STAFF AT [facility] Living Arrangements Current Residence: ([facility]) Number of Floors 1 Number of Entry Steps: (LEVEL ENTRY) Bed/Bath Levels: Both first floor Facility: [facility] Facility Name: [facility] Plan to Return: Yes Lives with: Other (Comment) (ECF) Support Systems: Children, Comments (Other) (F STAFF) Activities of Daily Living Ambulation: Total Care Bathing/Dressing: Total Care Elimination/Continence/Toileting : Total Care Feeding: asst .set up Who Assists with Activities of Daily Living: ECF STAFF Instrumental Activities of Daily Living Prescription Coverage: Yes Pharmacy Used: [facility] STAFF Medication Management: Medication dispenser Who assists with medication securing and setup?: [facility] Transportation/Shopping: Assistance Provider Transportation/Shopping Assistance Provider Name: [employer]SPORT Transportation Mode: Payer provided transport service Needs Assistance with Transportation at Discharge: Yes Meal Preparation: Assistance Provider Meal Prep Assistance Provider Name: E[facility] Laundry/Cleaning: Assistance Provider Laundry/Cleaning Assistance Provider Name: [facility] Finances/Bill Paying: Assistance Provider Finances/Bill Payer Assistance Provider Name: DAUGHTER Communication: Independent, Emergency Call System Types of Care Services/Equipment Utilized Care Services: Dialysis Type: NA Durable Medical Equipment: Mohamud Lift, Hospital Bed, oxygen, Patient's Goal/Discharge Plan Patient expects to be discharged to: RETURN TO [facility] Discharge Planning Actions: Continue to follow Patient's Choice Rights and [employer] and Collaborative Relationships Disclosed as Indicated for Post-Acute Care: NA Interdisciplinary Team Engagement: Social Work Referral for: Additional Information: Inpatient status from [facility] with altered mental status. Recent hospitalization for UTI and is [facility]. ID consulted. Repeat blood culture in am, bs ac and hs with ss coverage, daily labs, us of right upper ext negative for DVT. Anny call and speak with nurse Jenna at [facility] patient is mohamud lift at facility, is able to feed herself, takes pills in applesauce, is diabetic and ss coverage. She believes patient requires oxygen at the facility. Patient is [facility] facility and Jenna believes has been there for about a year. Tentative discharge plan is to return to facility when medically stable. Did speak with patient's daughter Alexandro and she is agreeable with patient returning to [facility] when medically stable. . Vanessa Vu RN [facility] 03-06-2024 Note Formatting of this n ote might be different from the original. Tasked LEGAL RECORDS MANAGER to place referral in careport to return to [facility] under ICF level of care. . [facility] 03-06-2024 Note Formatting of this n ote might be different from the original. Tasked LEGAL RECORDS MANAGER to place referral in careport to return to [facility] under ICF level of care. . [facility] 03-06-2024 Note Tasked LEGAL RECORDS MANAGER to place referral in careport to return to [facility] under ICF level of care. . [facility] 03-06-2024 Note Hospitalist Progress Note 03/06/2024 [phone]: Please page hi ([phone]) for patient care issues. [phone]: Please page [facility] Hospitalist for any issues. Subjective: Admit Date: 03/05/2024 PCP: Lucy Quick Room#: [id number]/[id number] A Interval History: No overnight issues. Denies chest pain, sob, abdominal pain, nausea, vomiting, diarrhea, constipation, fevers, or chills. Patient without acute issues. Reports that she was feeling fine at the facility and does not know why she was sent to the hospital. Adult diet Regular 24HR INTAKE/OUTPUT: No intake or output data in the 24 hours ending 03/06/24 1346 Past Medical History: Past Medical History: Diagnosis Date CHF (congestive heart failure) ([facility]) COPD (chronic obstructive pulmonary disease) ([facility]) Diabetes mellitus ([facility]) LABS: CBC: Recent Labs 03/05/242029 WBC 8.7 RBC 3.19* HGB 9.3* HCT 29.7* MCV 93.1 RDW 16.5* PLT 342 BMP: Recent Labs 03/05/242011 NA 137 K 4.7 CL 104 CO2 25 BUN 24* CREATININE 1.23* GLUCOSE 144* CALCIUM 9.1 ANIONGAP 7 LIVER PROFILE: Recent Labs 03/05/242011 AST 21 ALT 22 BILITOT 0.4 ALKPHOS 95 PROT 5.7* PT/INR: No results for input(s): PROTIME, INR in the last 72 hours. CARDIAC ENZYMES: No results for input(s): TROPONINI in the last 72 hours. Procalcitonin: No results found for: PROCAL COVID-19 PCR: No results for input(s): COVID19 in the last 72 hours. Objective: Vitals: BP 138/80 Pulse 88 Temp 37.6 ?C (99.7 ?F) Resp 20 SpO2 98% Pulse Ox: SpO2 Av.5 % Min: 98 % Max: 100 % Supplemental O2: O2 Flow Rate (L/min): 4 L/min General appearance: No apparent distress, appears stated age and cooperative with exam, obese female in NAD, AAOx4 Respiratory: diminished, no wheezing. Cardiovascular: Regular rate and rhythm with no murmur Abdomen: Soft, non-tender, non-distended Skin: Skin color, texture, turgor normal. No rashes or lesions. Distal pulses intact in BL LE, no edema in BL LE Neurologic: grossly non-focal. Medications: aspirin, 81 mg, Oral, Daily atorvastatin, 40 mg, Oral, Daily cyanocobalamin, 1,000 mcg, Oral, Daily enoxaparin, 40 mg, SubCUTAneous, Daily ertapenem, 1,000 mg, IntraVENous, q24h famotidine, 20 mg, Oral, Daily insulin glargine, 50 Units, SubCUTAneous, BID insulin lispro, 0-6 Units, SubCUTAneous, TID WC And insulin lispro, 0-6 Units, SubCUTAneous, Nightly insulin lispro, 0-6 Units, SubCUTAneous, TID WC And insulin lispro, 0-6 Units, SubCUTAneous, Nightly isosorbide mononitrate ER, 30 mg, Oral, Daily linaGLIPtin, 5 mg, Oral, Daily methenamine hippurate, 1 g, Oral, BID metoprolol succinate XL, 25 mg, Oral, Daily mometasone-formoterol, 2 puff, Inhalation, BID ranolazine, 1,000 mg, Oral, BID senna-docusate sodium, 1 tablet, Oral, BID venlafaxine XR, 75 mg, Oral, Daily Assessment Acute metabolic encephalopathy Waxing and waning mentation Recent Hx of Enterococcus faecalis UTI PICC in place already was on ertapenem with completion date of 03/08/24 ID on consult, hold off on abx, repeat BC in the AM per discussion with ID Mentation waxes and wanes per patient Malfunctioning PICC Unable to be flushed May need either replacement vs removal if no further abx indicated per ID CKD stage 3 Cr baseline of 1.2-1.4 DM type 2 with hyperglycemia Diabetic diet Insulin regimen resumed Hx of COPD Chronic hypoxic respiratory failure Breathing treatments Baseline on 3-4L via NC CAD ASA and statin HLD Statin Anxiety/depression Venlafaxine Medical Decision Making 03/06/24: patient was reported to be hallucinating at SNF where she was getting IV abx through PICC for multidrug resistant enterococcus faecalis UTI. Abx were to be completed on 03/08/24. Discussed with ID today, monitor off abx, repeat BC tomorrow. CBC and BMP in the AM. -am labs, replace lytes prn -increase activity -resume home medications as indicated -DVT prophylaxis: [x] Lovenox [] Heparin [] SCDs [x] Encourage ambulation [] Already on Anticoagulation Anticipated Discharge - Date - 03/07 vs 03/08 - Location - Home - Pending the following - stable mentation, abx recs from ID. Toxic drug monitoring/narrow therapeutic index drug monitoring : # Drug name : # Route administered : # Method of monitoring : Extended Emergency Contact Information Primary Emergency Contact: Alexandro Cote Mobile Relation: Daughter Preferred language: Mone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 Carmen Talamantes DO Division of Hospitalist Medicine [place]patient Medical Services[place] [facility] 03-06-2024 History and physical note Images from the original note were not included. History and Physical [facility] Kimberly Patel : 1955 AGE 68 y.o. YEARS Note Date 03/06/2024 Primary Care Physician:Lucy Quick Current Providers as of 03/05/2024 PCP: Lucy Quick Referring Provider: not found, starting on SunMarch 05, 2024 12:00 AM Admitting Provider: Eboni Fletcher MD, (Active) Attending Provider: Janie Cortez MD, starting on SunMarch 05, 2024 7:22 PM (Active) Attending Provider: Eboni Fletcher MD, starting on SunMarch 05, 2024 11:00 PM (Active) Registered Nurse: Marjorie Stephens RN, starting on SunMarch 05, 2024 7:29 PM (Active) Chief Complaint: Altered Mental Status (PER FACILITY, PT STARTED WITH CONFUSION AND HALLUCINATIONS AT [place], [place] FOR UTI PRESENT) HPI: She was sent over from [facility], for altered mental status Report given by [facility] was concerned that she was hallucinating at dinner When asked about this she states she feels fine but sometimes her consciousness waxes and wanes. She denies physically seeing or hearing anyone But does state sometimes it is difficult for her to be aware of herself and what is going on She is not able to give a very detailed history She is aware she is in the hospital she is aware that she is getting antibiotics for an infection currently she does not feel like she is having any pain any dysuria She denies almost all symptoms when I asked her if anything is wrong She was getting iv invanz throught right upper extremity picc line Per recent id plan - see below Review of Systems: She denies almost all symptoms. senior care reports she was confused and possibly hallucinating General: Skin: HEENT: Cardiovascular Fever n Rashes n Difficulty chewing n Chest Pain n Chills n Sores n Appetite Loss n Chest Pressure n Fatigue n Epistaxis n Orthopnea n Sweats n Hearing loss n Palpitations n GI: Tinnitus GERD n Vision quality RESP: Abdominal Pain n : SOB/WHITE n Nausea n Hematuria n Cough n Vomiting n Dysuria n Productive/Sputum n Hematemesis n NEURO: Urgency n Hemoptysis n Diarrhea n Headaches n Frequency n Wheezing n Constipation n Seizures Times at night urinating Heamatochezia Neuropathy catheter present She does not have a catheter in MSK: Melena Focal weakness Hesitancy Focal Numbness Incontinence Acute joint pain n Dizzy/Vertigo Redness n Difficulty speaking Heme/Lymph Swelling n Difficulty walking Lymphadenopathy Myalgia n Ataxia Chronic joint pain Past Medical History: Diagnosis Date CHF (congestive heart failure) ([facility]/H[facility]) COPD (chronic obstructive pulmonary disease) (CMS/HCC) Diabetes mellitus (CMS/HCC) Recent uti Past Surgical History: Procedure Laterality Date CHOLECYSTECTOMY COLONOSCOPY throat biopsy Allergies Allergen Reactions Dulaglutide Empagliflozin Hydromorphone Metformin Morphine Ondansetron Penicillins Medications Prior to Admission: Current Outpatient Medications Medication Instructions acetaminophen (TYLENOL) 650 mg, Oral, Every 6 hours PRN albuterol 108 (90 Base) MCG/ACT inhaler 2 puffs, Inhalation, Every 4 hours PRN albuterol 2.5 mg, Nebulization, 4 times daily PRN aspirin 81 mg, Oral, Daily atorvastatin (LIPITOR) 40 mg, Oral, Daily bisacodyl (DULCOLAX) 5 mg, Oral, Daily PRN, Do not crush, chew, or split. bisacodyl (FLEET BISACODYL) 10 mg, Rectal, Daily PRN budesonide-formoterol (Symbicort) 160-4.5 MCG/ACT inhaler 2 puffs, Inhalation, 2 times daily, Rinse mouth with water after use to reduce aftertaste and incidence of candidiasis. Do not swallow. calcium carbonate (TUMS) 500 mg, Oral, 2 times daily clobetasol (Temovate) 0.05 % cream Topical, 2 times daily cyanocobalamin (VITAMIN B-12) 1,000 mcg, Oral, Daily [START ON 03/08/2024] doxycycline (MONODOX) 100 mg, Oral, 2 times daily, Take with at least 8 ounces (large glass) of water, do not lie down for 30 minutes after dupilumab (DUPIXENT) 300 mg, SubCUTAneous, Every 14 days ergocalciferol (VITAMIN D-2) 1.25 mg, Oral, Weekly, Every ERTAPENEM SODIUM IJ 1 g, Injection, Every 24 hours famotidine (PEPCID) 40 mg, Oral, Daily furosemide (LASIX) 40 mg, Oral, 2 times daily guaiFENesin (ROBITUSSIN) 200 mg, Oral, 3 times daily PRN hydrOXYzine HCl (ATARAX) 25 mg, Oral, Every 8 hours PRN insulin glargine (LANTUS) 50 Units, SubCUTAneous, 2 times daily isosorbide mononitrate ER (IMDUR) 30 mg, Oral, Daily, Do not crush or chew. methenamine hippurate (HIPREX) 1 g, Oral, 2 times daily metoprolol succinate XL (TOPROL-XL) 25 mg, Oral, Daily, Do not crush or chew. N-Acetyl Cysteine 600 mg, Oral, 2 times daily oxyCODONE-acetaminophen (Percocet) 5-325 MG tablet 1 tablet, Oral, Every 6 hours PRN polyethylene glycol (PEG) 3350 (MIRALAX) 17 g, Oral, Once promethazine (PHENERGAN) 25 mg, Oral, Every 6 hours PRN ranolazine (RANEXA) 1,000 mg, Oral, 2 times daily, Do not crush, chew, or split. senna-docusate sodium (Senokot-S) 8.6-50 MG tablet 1 tablet, Oral, 2 times daily Tradjenta 5 mg, Oral, Daily venlafaxine XR (EFFEXOR XR) 75 mg, Oral, Daily, Do not crush or chew. white petrolatum gel Topical, 2 times daily Social History Social History Tobacco Use Smoking status: Former Smokeless tobacco: Never Substance Use Topics Alcohol use: Not on file Family History No family history on file. Physical Exam Temp (24hrs), Av.6 C (99.7 F), Min:37.6 C (99.7 F), Max:37.6 C (99.7 F) BP (!) 142/68 Pulse 92 Temp 37.6 C (99.7 F) Resp 20 SpO2 99% Pulse Ox: SpO2 Av.8 % Min: 99 % Max: 100 % Supplemental O2: O2 Flow Rate (L/min): 4 L/min General appearance: She is alert to name and place HEENT: Normal cephalic, atraumatic without obvious deformity. Pupils equal, round, and reactive to light. Extra ocular muscles intact. Conjunctivae/corneas clear. Neck: Supple, with full range of motion. No jugular venous distention. Trachea midline. No lymphadenopathy. Respiratory: Normal respiratory effort. Clear to auscultation, bilaterally without Rales/Wheezes/Rhonchi. Cardiovascular: Regular rate and rhythm with normal S1/S2 without murmurs, rubs or gallops. Abdomen: Soft, non-tender, non-distended with normal bowel sounds. No rebound or guarding. Musculoskeletal: 1+ lower extremity edema Skin: She has some partial-thickness skin breakdown in her sacral area Neurologic: Neurovascularly intact without any focal sensory/motor deficits. Cranial nerves grossly intact. Labs Admission on 03/05/2024 Component Date Value Auto WBC 03/05/2024 8.7 RBC 03/05/2024 3.19 (L) Hemoglobin 03/05/2024 9.3 (L) Hematocrit 03/05/2024 29.7 (L) MCV 03/05/2024 93.1 MCH 03/05/2024 29.2 MCHC 03/05/2024 31.3 RDW 03/05/2024 16.5 (H) Platelets 03/05/2024 342 MPV 03/05/2024 8.4 (L) nRBC 03/05/2024 0.0 Neutrophils Relative 03/05/2024 65.2 Lymphocytes Relative 03/05/2024 20.0 Monocytes Relative 03/05/2024 8.1 Eosinophils Relative 03/05/2024 3.8 Basophils Relative 03/05/2024 0.7 Immature Grans % 03/05/2024 2.2 (H) Neutrophils Absolute 03/05/2024 5.7 Lymphocytes Absolute 03/05/2024 1.7 Monocytes Absolute 03/05/2024 0.7 Eosinophils Absolute 03/05/2024 0.3 Basophils Absolute 03/05/2024 0.1 Immature Grans Absolute 03/05/2024 0.2 (H) SODIUM 03/05/2024 137 POTASSIUM 03/05/2024 4.7 CHLORIDE 03/05/2024 104 CARBON DIOXIDE 03/05/2024 25 ANION GAP 03/05/2024 7 UREA NITROGEN 03/05/2024 24 (H) CREATININE 03/05/2024 1.23 (H) GLUCOSE 03/05/2024 144 (H) CALCIUM 03/05/2024 9.1 AST (SGOT) 03/05/2024 21 ALT 03/05/2024 22 ALKALINE PHOSPHATASE 03/05/2024 95 ALBUMIN 03/05/2024 3.1 (L) BILIRUBIN, TOTAL 03/05/2024 0.4 TOTAL PROTEIN 03/05/2024 5.7 (L) eGFR 03/05/2024 48.6 (L) LACTIC ACID 03/05/2024 1.1 Color, Urine 03/05/2024 Yellow Clarity, Urine 03/05/2024 Turbid (A) pH, Urine 03/05/2024 5.0 Leukocytes, Urine 03/05/2024 500 (A) Nitrite, Urine 03/05/2024 Negative Protein, Urine 03/05/2024 20 (A) Glucose, Urine 03/05/2024 Normal Bilirubin, Urine 03/05/2024 Negative Ketones, Urine 03/05/2024 Negative Urobilinogen, Urine 03/05/2024 Normal Blood, Urine 03/05/2024 Negative RBC, Urine 03/05/2024 3-5 (A) WBC, Urine 03/05/2024 51-100 (A) Squamous Epithelial, Uri* 03/05/2024 11-25 (A) Bacteria, Urine 03/05/2024 Few (A) Mucus, Urine 03/05/2024 Few SPECIFIC GRAVITY OF URIN* 03/05/2024 1.020 EKG Encounter Date: 02/21/24 ECG 12 lead Result Value Heart Rate 106 QRSD Interval 77 QT Interval 338 QTC Interval 448 P [place] 7 QRS [place] -44 T Wave [place] 79 [place] Interval 159 Impression Sinus tachycardia with irregular rate Inferior infarct, old Anterior infarct, old Compared to ECG 04/30/22 Irregular rate now noted, likely PAC Electronically Signed On 02-22-2024 00:36:22 EDT by Keven Cano Assessment/Plan and Medical Decision Making 68-year-old sent over from [facility] with altered mental status and malfunctioning PICC line Patient denies most symptoms she is alert and oriented to name and place unsure if she is worse than her baseline she does not complain of any focal neurologic deficits syncope falls chest pain She was recently admitted and had encephalopathy at that time. She had chest x-ray did not show any evidence of pneumonia or infiltrate She was being treated with Invanz for UTI per previous IV plan and has several days antibiotics left Workup so far in the emergency room shows Normal white blood cell count 8.7 lactic acid normal at 1.1 urinalysis was obtained but was contaminated with 11-25 squames Repeat urinalysis straight cath specimen has been requested but not obtained yet Previous urine culture from 02/20 and 02/24 grew out Enterococcus faecalis that was multi resistant. At this time would like to continue Invanz Per prior ID plan which was to complete on 03/08/2024 Her PICC line is currently malfunctioning see below Malfunctioning PICC line Unable to be flushed we will request Cathflo and venous duplex ultrasound of right upper extremity If line unable to be cannulated may consider replacement PICC line depending on repeat UA Invanz may be given IM for short period of time So unsure if PICC line would have to be replaced yet ckd Creatinine is close to baseline Lab Results Component Value Date CREATININE 1.23 (H) 03/05/2024 CREATININE 1.34 (H) 02/28/2024 CREATININE 1.30 (H) 02/27/2024 CREATININE 1.23 (H) 02/26/2024 CREATININE 1.25 (H) 02/25/2024 CREATININE 1.42 (H) 02/24/2024 CREATININE 1.62 (H) 02/23/2024 CREATININE 1.17 (H) 02/22/2024 CREATININE 1.29 (H) 02/21/2024 CREATININE 1.48 (H) 05/06/2022 CREATININE 1.30 (H) 05/05/2022 CREATININE 1.20 05/04/2022 CREATININE 1.51 (H) 05/03/2022 CREATININE 1.39 (H) 05/02/2022 CREATININE 1.77 (H) 05/01/2022 CREATININE 1.29 (H) 04/30/2022 CREATININE 1.5 (H) 10/13/2021 CREATININE 1.46 (H) 10/11/2021 CREATININE 1.42 (H) 10/10/2021 CREATININE 1.48 (H) 10/09/2021 CREATININE 1.65 (H) 10/08/2021 CREATININE 1.84 (H) 10/07/2021 CREATININE 2.11 (H) 10/06/2021 CREATININE 2.40 (H) 10/05/2021 CREATININE 2.65 (H) 10/04/2021 CREATININE 2.51 (H) 10/03/2021 CREATININE 2.28 (H) 10/02/2021 CREATININE 2.31 (H) 10/02/2021 History of diabetes I will continue her Tradjenta and basal insulin. I will cover her with sliding scale insulin if needed on admission her glucose was normal at 144 History of COPD Provide breathing treatments as needed not significant wheezing on exam I reconciled the rest of her home medications based off the ECF list Resume diabetic diet I discussed the need for admission with the emergency provider. -DVT prophylaxis: [x] Lovenox [] Heparin [] SCDs [x] Encourage ambulation [] Already on Anticoagulation [] Pharmocologic prophylaxis on hold to due risk bleed/procedure [] Low risk, ambulatory [] Both pharmacologic and mechanical contraindicated 03/06/2024 Kimberly Patel [id number] Any scheduled follow up appointments No future appointments. 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 Please forward a copy of this H&P to the primary care physician. [facility] 03-06-2024 History and physical note Images from the original note were not included. History and Physical [facility] Kimberly Patel : 1955 AGE 68 y.o. YEARS Note Date 03/06/2024 Primary Care Physician:Lucy Quick Current Providers as of 03/05/2024 PCP: Lucy Quick Referring Provider: not found, starting on SunMarch 05, 2024 12:00 AM Admitting Provider: Eboni Fletcher MD, (Active) Attending Provider: Janie Cortez MD, starting on SunMarch 05, 2024 7:22 PM (Active) Attending Provider: Eboni Fletcher MD, starting on SunMarch 05, 2024 11:00 PM (Active) Registered Nurse: Marjorie Stephens RN, starting on SunMarch 05, 2024 7:29 PM (Active) Chief Complaint: Altered Mental Status (PER FACILITY, PT STARTED WITH CONFUSION AND H[place]UCINATIONS AT [place] FOR UTI PRESENT) HPI: She was sent over from [facility], for altered mental status Report given by [facility] was concerned that she was hallucinating at dinner When asked about this she states she feels fine but sometimes her consciousness waxes and wanes. She denies physically seeing or hearing anyone But does state sometimes it is difficult for her to be aware of herself and what is going on She is not able to give a very detailed history She is aware she is in the hospital she is aware that she is getting antibiotics for an infection currently she does not feel like she is having any pain any dysuria She denies almost all symptoms when I asked her if anything is wrong She was getting iv invanz throught right upper extremity picc line Per recent id plan - see below Review of Systems: She denies almost all symptoms. senior care reports she was confused and possibly hallucinating General: Skin: HEENT: Cardiovascular Fever n Rashes n Difficulty chewing n Chest Pain n Chills n Sores n Appetite Loss n Chest Pressure n Fatigue n Epistaxis n Orthopnea n Sweats n Hearing loss n Palpitations n GI: Tinnitus GERD n Vision quality RESP: Abdominal Pain n : SOB/WHITE n Nausea n Hematuria n Cough n Vomiting n Dysuria n Productive/Sputum n Hematemesis n NEURO: Urgency n Hemoptysis n Diarrhea n Headaches n Frequency n Wheezing n Constipation n Seizures Times at night urinating Heamatochezia Neuropathy catheter present She does not have a catheter in MSK: Melena Focal weakness Hesitancy Focal Numbness Incontinence Acute joint pain n Dizzy/Vertigo Redness n Difficulty speaking Heme/Lymph Swelling n Difficulty walking Lymphadenopathy Myalgia n Ataxia Chronic joint pain Past Medical History: Diagnosis Date CHF (congestive heart failure) ([facility]) COPD (chronic obstructive pulmonary disease) ([facility]) Diabetes mellitus ([facility]) Recent uti Past Surgical History: Procedure Laterality Date CHOLECYSTECTOMY COLONOSCOPY throat biopsy Allergies Allergen Reactions Dulaglutide Empagliflozin Hydromorphone Metformin Morphine Ondansetron Penicillins Medications Prior to Admission: Current Outpatient Medications Medication Instructions acetaminophen (TYLENOL) 650 mg, Oral, Every 6 hours PRN albuterol 108 (90 Base) MCG/ACT inhaler 2 puffs, Inhalation, Every 4 hours PRN albuterol 2.5 mg, Nebulization, 4 times daily PRN aspirin 81 mg, Oral, Daily atorvastatin (LIPITOR) 40 mg, Oral, Daily bisacodyl (DULCOLAX) 5 mg, Oral, Daily PRN, Do not crush, chew, or split. bisacodyl (FLEET BISACODYL) 10 mg, Rectal, Daily PRN budesonide-formoterol (Symbicort) 160-4.5 MCG/ACT inhaler 2 puffs, Inhalation, 2 times daily, Rinse mouth with water after use to reduce aftertaste and incidence of candidiasis. Do not swallow. calcium carbonate (TUMS) 500 mg, Oral, 2 times daily clobetasol (Temovate) 0.05 % cream Topical, 2 times daily cyanocobalamin (VITAMIN B-12) 1,000 mcg, Oral, Daily [START ON 03/08/2024] doxycycline (MONODOX) 100 mg, Oral, 2 times daily, Take with at least 8 ounces (large glass) of water, do not lie down for 30 minutes after dupilumab (DUPIXENT) 300 mg, SubCUTAneous, Every 14 days ergocalciferol (VITAMIN D-2) 1.25 mg, Oral, Weekly, Every ERTAPENEM SODIUM IJ 1 g, Injection, Every 24 hours famotidine (PEPCID) 40 mg, Oral, Daily furosemide (LASIX) 40 mg, Oral, 2 times daily guaiFENesin (ROBITUSSIN) 200 mg, Oral, 3 times daily PRN hydrOXYzine HCl (ATARAX) 25 mg, Oral, Every 8 hours PRN insulin glargine (LANTUS) 50 Units, SubCUTAneous, 2 times daily isosorbide mononitrate ER (IMDUR) 30 mg, Oral, Daily, Do not crush or chew. methenamine hippurate (HIPREX) 1 g, Oral, 2 times daily metoprolol succinate XL (TOPROL-XL) 25 mg, Oral, Daily, Do not crush or chew. N-Acetyl Cysteine 600 mg, Oral, 2 times daily oxyCODONE-acetaminophen (Percocet) 5-325 MG tablet 1 tablet, Oral, Every 6 hours PRN polyethylene glycol (PEG) 3350 (MIRALAX) 17 g, Oral, Once promethazine (PHENERGAN) 25 mg, Oral, Every 6 hours PRN ranolazine (RANEXA) 1,000 mg, Oral, 2 times daily, Do not crush, chew, or split. senna-docusate sodium (Senokot-S) 8.6-50 MG tablet 1 tablet, Oral, 2 times daily Tradjenta 5 mg, Oral, Daily venlafaxine XR (EFFEXOR XR) 75 mg, Oral, Daily, Do not crush or chew. white petrolatum gel Topical, 2 times daily Social History Social History Tobacco Use Smoking status: Former Smokeless tobacco: Never Substance Use Topics Alcohol use: Not on file Family History No family history on file. Physical Exam Temp (24hrs), Av.6 C (99.7 F), Min:37.6 C (99.7 F), Max:37.6 C (99.7 F) BP (!) 142/68 Pulse 92 Temp 37.6 C (99.7 F) Resp 20 SpO2 99% Pulse Ox: SpO2 Av.8 % Min: 99 % Max: 100 % Supplemental O2: O2 Flow Rate (L/min): 4 L/min General appearance: She is alert to name and place HEENT: Normal cephalic, atraumatic without obvious deformity. Pupils equal, round, and reactive to light. Extra ocular muscles intact. Conjunctivae/corneas clear. Neck: Supple, with full range of motion. No jugular venous distention. Trachea midline. No lymphadenopathy. Respiratory: Normal respiratory effort. Clear to auscultation, bilaterally without Rales/Wheezes/Rhonchi. Cardiovascular: Regular rate and rhythm with normal S1/S2 without murmurs, rubs or gallops. Abdomen: Soft, non-tender, non-distended with normal bowel sounds. No rebound or guarding. Musculoskeletal: 1+ lower extremity edema Skin: She has some partial-thickness skin breakdown in her sacral area Neurologic: Neurovascularly intact without any focal sensory/motor deficits. Cranial nerves grossly intact. Labs Admission on 03/05/2024 Component Date Value Auto WBC 03/05/2024 8.7 RBC 03/05/2024 3.19 (L) Hemoglobin 03/05/2024 9.3 (L) Hematocrit 03/05/2024 29.7 (L) MCV 03/05/2024 93.1 MCH 03/05/2024 29.2 MCHC 03/05/2024 31.3 RDW 03/05/2024 16.5 (H) Platelets 03/05/2024 342 MPV 03/05/2024 8.4 (L) nRBC 03/05/2024 0.0 Neutrophils Relative 03/05/2024 65.2 Lymphocytes Relative 03/05/2024 20.0 Monocytes Relative 03/05/2024 8.1 Eosinophils Relative 03/05/2024 3.8 Basophils Relative 03/05/2024 0.7 Immature Grans % 03/05/2024 2.2 (H) Neutrophils Absolute 03/05/2024 5.7 Lymphocytes Absolute 03/05/2024 1.7 Monocytes Absolute 03/05/2024 0.7 Eosinophils Absolute 03/05/2024 0.3 Basophils Absolute 03/05/2024 0.1 Immature Grans Absolute 03/05/2024 0.2 (H) SODIUM 03/05/2024 137 POTASSIUM 03/05/2024 4.7 CHLORIDE 03/05/2024 104 CARBON DIOXIDE 03/05/2024 25 ANION GAP 03/05/2024 7 UREA NITROGEN 03/05/2024 24 (H) CREATININE 03/05/2024 1.23 (H) GLUCOSE 03/05/2024 144 (H) CALCIUM 03/05/2024 9.1 AST (SGOT) 03/05/2024 21 ALT 03/05/2024 22 ALKALINE PHOSPHATASE 03/05/2024 95 ALBUMIN 03/05/2024 3.1 (L) BILIRUBIN, TOTAL 03/05/2024 0.4 TOTAL PROTEIN 03/05/2024 5.7 (L) eGFR 03/05/2024 48.6 (L) LACTIC ACID 03/05/2024 1.1 Color, Urine 03/05/2024 Yellow Clarity, Urine 03/05/2024 Turbid (A) pH, Urine 03/05/2024 5.0 Leukocytes, Urine 03/05/2024 500 (A) Nitrite, Urine 03/05/2024 Negative Protein, Urine 03/05/2024 20 (A) Glucose, Urine 03/05/2024 Normal Bilirubin, Urine 03/05/2024 Negative Ketones, Urine 03/05/2024 Negative Urobilinogen, Urine 03/05/2024 Normal Blood, Urine 03/05/2024 Negative RBC, Urine 03/05/2024 3-5 (A) WBC, Urine 03/05/2024 51-100 (A) Squamous Epithelial, Uri* 03/05/2024 11-25 (A) Bacteria, Urine 03/05/2024 Few (A) Mucus, Urine 03/05/2024 Few SPECIFIC GRAVITY OF URIN* 03/05/2024 1.020 EKG Encounter Date: 02/21/24 ECG 12 lead Result Value Heart Rate 106 QRSD Interval 77 QT Interval 338 QTC Interval 448 P [place] 7 QRS [place] -44 T Wave [place] 79 [place] Interval 159 Impression Sinus tachycardia with irregular rate Inferior infarct, old Anterior infarct, old Compared to ECG 04/30/22 Irregular rate now noted, likely PAC Electronically Signed On 02-22-2024 00:36:22 EDT by Keven Cano Assessment/Plan and Medical Decision Making 68-year-old sent over from [facility] with altered mental status and malfunctioning PICC line Patient denies most symptoms she is alert and oriented to name and place unsure if she is worse than her baseline she does not complain of any focal neurologic deficits syncope falls chest pain She was recently admitted and had encephalopathy at that time. She had chest x-ray did not show any evidence of pneumonia or infiltrate She was being treated with Invanz for UTI per previous IV plan and has several days antibiotics left Workup so far in the emergency room shows Normal white blood cell count 8.7 lactic acid normal at 1.1 urinalysis was obtained but was contaminated with 11-25 squames Repeat urinalysis straight cath specimen has been requested but not obtained yet Previous urine culture from 02/20 and 02/24 grew out Enterococcus faecalis that was multi resistant. At this time would like to continue Invanz Per prior ID plan which was to complete on 03/08/2024 Her PICC line is currently malfunctioning see below Malfunctioning PICC line Unable to be flushed we will request Cathflo and venous duplex ultrasound of right upper extremity If line unable to be cannulated may consider replacement PICC line depending on repeat UA Invanz may be given IM for short period of time So unsure if PICC line would have to be replaced yet ckd Creatinine is close to baseline Lab Results Component Value Date CREATININE 1.23 (H) 03/05/2024 CREATININE 1.34 (H) 02/28/2024 CREATININE 1.30 (H) 02/27/2024 CREATININE 1.23 (H) 02/26/2024 CREATININE 1.25 (H) 02/25/2024 CREATININE 1.42 (H) 02/24/2024 CREATININE 1.62 (H) 02/23/2024 CREATININE 1.17 (H) 02/22/2024 CREATININE 1.29 (H) 02/21/2024 CREATININE 1.48 (H) 05/06/2022 CREATININE 1.30 (H) 05/05/2022 CREATININE 1.20 05/04/2022 CREATININE 1.51 (H) 05/03/2022 CREATININE 1.39 (H) 05/02/2022 CREATININE 1.77 (H) 05/01/2022 CREATININE 1.29 (H) 04/30/2022 CREATININE 1.5 (H) 10/13/2021 CREATININE 1.46 (H) 10/11/2021 CREATININE 1.42 (H) 10/10/2021 CREATININE 1.48 (H) 10/09/2021 CREATININE 1.65 (H) 10/08/2021 CREATININE 1.84 (H) 10/07/2021 CREATININE 2.11 (H) 10/06/2021 CREATININE 2.40 (H) 10/05/2021 CREATININE 2.65 (H) 10/04/2021 CREATININE 2.51 (H) 10/03/2021 CREATININE 2.28 (H) 10/02/2021 CREATININE 2.31 (H) 10/02/2021 History of diabetes I will continue her Tradjenta and basal insulin. I will cover her with sliding scale insulin if needed on admission her glucose was normal at 144 History of COPD Provide breathing treatments as needed not significant wheezing on exam I reconciled the rest of her home medications based off the ECF list Resume diabetic diet I discussed the need for admission with the emergency provider. -DVT prophylaxis: [x] Lovenox [] Heparin [] SCDs [x] Encourage ambulation [] Already on Anticoagulation [] Pharmocologic prophylaxis on hold to due risk bleed/procedure [] Low risk, ambulatory [] Both pharmacologic and mechanical contraindicated 03/06/2024 Kimberly Patel [id number] Any scheduled follow up appointments No future appointments. 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 Please forward a copy of this H&P to the primary care physician. documented in this encounter [facility] 03-06-2024 Note History and Physical [facility] Kimberly CARMEN: 1955 AGE 68 y.o. YEARS Note Date 03/06/2024 Primary Care Physician:Lucy Quick Current Providers as of 03/05/2024 PCP: Lucy Quick Referring Provider: not found, starting on SunMarch 05, 2024 12:00 AM Admitting Provider: Eboni Fletcher MD, (Active) Attending Provider: Janie Cortez MD, starting on SunMarch 05, 2024 7:22 PM (Active) Attending Provider: Eboni Fletcher MD, starting on SunMarch 05, 2024 11:00 PM (Active) Registered Nurse: Marjorie Stephens RN, starting on SunMarch 05, 2024 7:29 PM (Active) Chief Complaint: Altered Mental Status (PER FACILITY, PT STARTED WITH CONFUSION AND H[place]UCINATIONS [place] FOR UTI PRESENT) HPI: She was sent over from [facility], for altered mental status Report given by [facility] was concerned that she was hallucinating at dinner When asked about this she states she feels fine but sometimes her consciousness waxes and wanes. She denies physically seeing or hearing anyone But does state sometimes it is difficult for her to be aware of herself and what is going on She is not able to give a very detailed history She is aware she is in the hospital she is aware that she is getting antibiotics for an infection currently she does not feel like she is having any pain any dysuria She denies almost all symptoms when I asked her if anything is wrong She was getting iv invanz throught right upper extremity picc line Per recent id plan - see below Review of Systems: She denies almost all symptoms. senior care reports she was confused and possibly hallucinating General: Skin: HEENT: Cardiovascular Fever n Rashes n Difficulty chewing n Chest Pain n Chills n Sores n Appetite Loss n Chest Pressure n Fatigue n Epistaxis n Orthopnea n Sweats n Hearing loss n Palpitations n GI: Tinnitus GERD n Vision quality RESP: Abdominal Pain n : SOB/WHITE n Nausea n Hematuria n Cough n Vomiting n Dysuria n Productive/Sputum n Hematemesis n NEURO: Urgency n Hemoptysis n Diarrhea n Headaches n Frequency n Wheezing n Constipation n Seizures Times at night urinating Heamatochezia Neuropathy catheter present She does not have a catheter in MSK: Melena Focal weakness Hesitancy Focal Numbness Incontinence Acute joint pain n Dizzy/Vertigo Redness n Difficulty speaking Heme/Lymph Swelling n Difficulty walking Lymphadenopathy Myalgia n Ataxia Chronic joint pain Past Medical History: Diagnosis Date CHF (congestive heart failure) ([facility]) COPD (chronic obstructive pulmonary disease) ([facility]) Diabetes mellitus ([facility]) Recent uti Past Surgical History: Procedure Laterality Date CHOLECYSTECTOMY COLONOSCOPY throat biopsy Allergies Allergen Reactions Dulaglutide Empagliflozin Hydromorphone Metformin Morphine Ondansetron Penicillins Medications Prior to Admission: Current Outpatient Medications Medication Instructions acetaminophen (TYLENOL) 650 mg, Oral, Every 6 hours PRN albuterol 108 (90 Base) MCG/ACT inhaler 2 puffs, Inhalation, Every 4 hours PRN albuterol 2.5 mg, Nebulization, 4 times daily PRN aspirin 81 mg, Oral, Daily atorvastatin (LIPITOR) 40 mg, Oral, Daily bisacodyl (DULCOLAX) 5 mg, Oral, Daily PRN, Do not crush, chew, or split. bisacodyl (FLEET BISACODYL) 10 mg, Rectal, Daily PRN budesonide-formoterol (Symbicort) 160-4.5 MCG/ACT inhaler 2 puffs, Inhalation, 2 times daily, Rinse mouth with water after use to reduce aftertaste and incidence of candidiasis. Do not swallow. calcium carbonate (TUMS) 500 mg, Oral, 2 times daily clobetasol (Temovate) 0.05 % cream Topical, 2 times daily cyanocobalamin (VITAMIN B-12) 1,000 mcg, Oral, Daily [START ON 03/08/2024] doxycycline (MONODOX) 100 mg, Oral, 2 times daily, Take with at least 8 ounces (large glass) of water, do not lie down for 30 minutes after dupilumab (DUPIXENT) 300 mg, SubCUTAneous, Every 14 days ergocalciferol (VITAMIN D-2) 1.25 mg, Oral, Weekly, Every ERTAPENEM SODIUM IJ 1 g, Injection, Every 24 hours famotidine (PEPCID) 40 mg, Oral, Daily furosemide (LASIX) 40 mg, Oral, 2 times daily guaiFENesin (ROBITUSSIN) 200 mg, Oral, 3 times daily PRN hydrOXYzine HCl (ATARAX) 25 mg, Oral, Every 8 hours PRN insulin glargine (LANTUS) 50 Units, SubCUTAneous, 2 times daily isosorbide mononitrate ER (IMDUR) 30 mg, Oral, Daily, Do not crush or chew. methenamine hippurate (HIPREX) 1 g, Oral, 2 times daily metoprolol succinate XL (TOPROL-XL) 25 mg, Oral, Daily, Do not crush or chew. N-Acetyl Cysteine 600 mg, Oral, 2 times daily oxyCODONE-acetaminophen (Percocet) 5-325 MG tablet 1 tablet, Oral, Every 6 hours PRN polyethylene glycol (PEG) 3350 (MIRALAX) 17 g, Oral, Once promethazine (PHENERGAN) 25 mg, Oral, Every 6 hours PRN ranolazine (RANEXA) 1,000 mg, Oral, 2 times daily, Do not crush, chew, or split. senna-docusate sodium (Sen (more content not included)... [facility] 03-05-2024 Emergency department Note [employer] called for USIV and labs Marjorie Stephens RN 03/05/241941 [facility] 03-05-2024 Emergency department Note [employer] CHIEF called for USIV and labs Marjorie Stephens RN 03/05/241941 EMERGENCY DEPARTMENT ENCOUNTER Pt Name: Kimberly Patel Birthdate 1955 Date of evaluation: 03/05/2024 ED Provider: JANIE CORTEZ MD CHIEF COMPLAINT Chief Complaint Patient presents with Altered Mental Status PER FACILITY, PT STARTED WITH CONFUSION AND H[place]UCINATIONS AT [place] FOR UTI PRESENT HISTORY OF PRESENT ILLNESS (Location/Symptom, Timing/Onset, Context/Setting, Quality, Duration, Modifying Factors, Severity) Note limiting factors. I wore appropriate PPE for the entirety of this encounter. HPI Kimberly Patel is a 68 y.o. who presents to the emergency department with chief complaint of altered mental status. Patient reportedly had hallucinations at dinner tonight. For EMS they report that the patient was GCS 15 oriented x 4 on their arrival but then had an episode of confusion and route and then was oriented again prior to arrival to the emergency department. Patient states that she does not have any significant symptoms but states she overall just does not feel well. Denies any chest pain shortness of breath. Has some chronic abdominal pain that she states is no worse than normal. Denies any fever. Patient has a PICC line in the right upper extremity. She denies any significant pain from it. Nursing Notes were reviewed. Limitations to history: None Outside historians: None REVIEW OF SYSTEMS Review of Systems Pertinent positives and negatives as per HPI. PAST MEDICAL HISTORY Past Medical History: Diagnosis Date CHF (congestive heart failure) ([facility]) COPD (chronic obstructive pulmonary disease) ([facility]) Diabetes mellitus ([facility]) SURGICAL HISTORY Past Surgical History: Procedure Laterality Date CHOLECYSTECTOMY COLONOSCOPY throat biopsy CURRENT MEDICATIONS Previous Medications ACETAMINOPHEN (TYLENOL) 325 MG TABLET Take 650 mg by mouth every 6 hours as needed for mild pain (1-3) or fever. ACETYLCYSTEINE (N-ACETYL CYSTEINE) 600 MG CAPSULE CAPSULE Take 600 mg by mouth in the morning and 600 mg in the evening. ALBUTEROL (2.5 MG/3ML) 0.083% NEBULIZER SOLUTION Take 2.5 mg by nebulization 4 times daily as needed for wheezing or shortness of breath. ALBUTEROL 108 (90 BASE) MCG/ACT INHALER Inhale 2 puffs every 4 hours as needed for wheezing. ASPIRIN 81 MG EC TABLET Take 81 mg by mouth daily. ATORVASTATIN (LIPITOR) 40 MG TABLET Take 40 mg by mouth daily. BISACODYL (DULCOLAX) 5 MG EC TABLET Take 5 mg by mouth Daily as needed for constipation. Do not crush, chew, or split. BISACODYL (FLEET BISACODYL) 10 MG/30ML ENEMA Insert 10 mg into the rectum Daily as needed for constipation. BUDESONIDE-FORMOTEROL (SYMBICORT) 160-4.5 MCG/ACT INHALER Inhale 2 puffs in the morning and 2 puffs in the evening. Rinse mouth with water after use to reduce aftertaste and incidence of candidiasis. Do not swallow.. CALCIUM CARBONATE (TUMS) 500 MG CHEWABLE TABLET Chew 500 mg 2 times daily. CLOBETASOL (TEMOVATE) 0.05 % CREAM Apply topically 2 times daily. CYANOCOBALAMIN (VITAMIN B-12) 1000 MCG TABLET Take 1 tablet (1,000 mcg) by mouth daily. DOXYCYCLINE (MONODOX) 100 MG CAPSULE Take 1 capsule (100 mg) by mouth 2 times daily. Take with at least 8 ounces (large glass) of water, do not lie down for 30 minutes after Do not start before March 08, 2024. DUPILUMAB (DUPIXENT) 300 MG/2ML INJECTION Inject 300 mg under the skin every 14 (fourteen) days. ERGOCALCIFEROL (VITAMIN D-2) 1.25 MG (06380 UT) CAPSULE Take 1.25 mg by mouth 1 (one) time per week. Every ERTAPENEM SODIUM IJ Inject 1 g as directed Every 24 hours. FAMOTIDINE (PEPCID) 40 MG TABLET Take 40 mg by mouth daily. FUROSEMIDE (LASIX) 40 MG TABLET Take 40 mg by mouth in the morning and 40 mg in the evening. GUAIFENESIN (ROBITUSSIN) 100 MG/5ML SYRUP Take 200 mg by mouth 3 times daily as needed for cough. HYDROXYZINE HCL (ATARAX) 25 MG TABLET Take 25 mg by mouth every 8 hours as needed for itching. INSULIN GLARGINE (LANTUS) 100 UNIT/ML INJECTION Inject 50 Units under the skin 2 times daily. ISOSORBIDE MONONITRATE ER (IMDUR) 30 MG 24 HR TABLET Take 30 mg by mouth daily. Do not crush or chew. LINAGLIPTIN (TRADJENTA) 5 MG TABLET Take 5 mg by mouth daily. METHENAMINE HIPPURATE (HIPREX) 1 G TABLET Take 1 g by mouth 2 times daily. METOPROLOL SUCCINATE XL (TOPROL-XL) 25 MG 24 HR TABLET Take 25 mg by mouth daily. Do not crush or chew. OXYCODONE-ACETAMINOPHEN (PERCOCET) 5-325 MG TABLET Take 1 tablet by mouth every 6 hours as needed for severe pain (7-10). POLYETHYLENE GLYCOL, PEG, 3350 (MIRALAX) 17 G PACKET Take 17 g by mouth Once. PROMETHAZINE (PHENERGAN) 25 MG TABLET Take 25 mg by mouth every 6 hours as needed for nausea or vomiting. RANOLAZINE (RANEXA) 1000 MG 12 HR TABLET Take 1,000 mg by mouth 2 times daily. Do not crush, chew, or split. SENNA-DOCUSATE SODIUM (SENOKOT-S) 8.6-50 MG TABLET Take 1 tablet by mouth 2 times daily. VENLAFAXINE XR (EFFEXOR XR) 75 MG 24 HR CAPSULE Take 75 mg by mouth daily. Do not crush or chew. WHITE PETROLATUM GEL Apply topically 2 times daily. ALLERGIES Dulaglutide, Empagliflozin, Hydromorphone, Metformin, Morphine, Ondansetron, and Penicillins FAMILY HISTORY No family history on file. SOCIAL HISTORY Social History Socioeconomic History Marital status: Tobacco Use Smoking status: Former Smokeless tobacco: Never Social History Narrative Home with daughter Social Determinants of Health Food Insecurity: No Food Insecurity (02/22/2024) Hunger Vital Sign Worried About Running Out of Food in the Last Year: Never true Ran Out of Food in the Last Year: Never true Transportation Needs: No Transportation Needs (02/22/2024) PRAPARE - Transportation Lack of Transportation (Medical): No Lack of Transportation (Non-Medical): No Intimate Partner Violence: Not At Risk (02/22/2024) Humiliation, Afraid, Rape, and Kick questionnaire Fear of Current or Ex-Partner: No Emotionally Abused: No Physically Abused: No Sexually Abused: No Housing Stability: Unknown (02/22/2024) Housing Stability Vital Sign Unable to Pay for Housing in the Last Year: No Unstable Housing in the Last Year: No SCREENINGS PHYSICAL EXAM ED Triage Vitals [03/05/24 191] Temp Heart Rate Resp BP 37.6 C (99.7 F) 90 18 (!) 155/59 SpO2 Temp src Heart Rate Source Patient Position 100 % -- Monitor Sitting BP Location FiO2 (%) Left arm -- General appearance: Chronically ill-appearing, no acute distress. Psych: Awake alert and oriented 3. Pleasant and cooperative. Skin: Warm and dry. Right upper extremity PICC line appears clean dry and intact with a dressing overlying it. There is some surrounding ecchymosis. Neck: Supple. Cardiovascular: Regular rate and rhythm Lungs: Clear to auscultation bilaterally, no accessory muscle use, tachypnea, or retractions. Abdomen: Soft, mild diffuse tenderness, and nondistended, no rebound, rigidity, or guarding, positive bowel sounds 4 quadrants. Extremities: Warm and well perfused. NROM and SILT throughout upper and lower extermities. Mild tenderness to palpation just below the dressing for the right upper extremity PICC line. There is no surrounding erythema there is some ecchymosis compartments are soft no significant arm swelling DIAGNOSTIC RESULTS Interpretation per the Radiologist below, if available at the time of this note: XR chest 1 view Final Result FINDINGS/IMPRESSION: The patient is somewhat rotated 1. Lines/Tubes/Devices/Hardware: Right PICC with catheter tip overlying the SVC 2. Lungs: No consolidation or pulmonary edema. 3. Pleura: No pneumothorax or large pleural effusions. 4. Heart and mediastinum: Normal cardiomediastinal contours. Report Dictated on Electronically Signed By: Milad Kirkpatrick MD Electronically Signed Date/Time: 03/05/2024 8:25 PM EDT ED BEDSIDE ULTRASOUND: Performed by ED Physician - none LABS: Labs Reviewed CBC WITH AUTO DIFFERENTIAL - Abnormal Result Value Auto WBC 8.7 RBC 3.19 (*) Hemoglobin 9.3 (*) Hematocrit 29.7 (*) MCV 93.1 MCH 29.2 MCHC 31.3 RDW 16.5 (*) Platelets 342 MPV 8.4 (*) nRBC 0.0 Neutrophils Relative 65.2 Lymphocytes Relative 20.0 Monocytes Relative 8.1 Eosinophils Relative 3.8 Basophils Relative 0.7 Immature Grans % 2.2 (*) Neutrophils Absolute 5.7 Lymphocytes Absolute 1.7 Monocytes Absolute 0.7 Eosinophils Absolute 0.3 Basophils Absolute 0.1 Immature Grans Absolute 0.2 (*) COMPREHENSIVE METABOLIC PANEL - Abnormal SODIUM 137 POTASSIUM 4.7 CHLORIDE 104 CARBON DIOXIDE 25 ANION GAP 7 UREA NITROGEN 24 (*) CREATININE 1.23 (*) GLUCOSE 144 (*) CALCIUM 9.1 AST (SGOT) 21 ALT 22 ALKALINE PHOSPHATASE 95 ALBUMIN 3.1 (*) BILIRUBIN, TOTAL 0.4 TOTAL PROTEIN 5.7 (*) eGFR 48.6 (*) COMPLETE URINALYSIS - Abnormal Color, Urine Yellow Clarity, Urine Turbid (*) pH, Urine 5.0 Leukocytes, Urine 500 (*) Nitrite, Urine Negative Protein, Urine 20 (*) Glucose, Urine Normal Bilirubin, Urine Negative Ketones, Urine Negative Urobilinogen, Urine Normal Blood, Urine Negative RBC, Urine 3-5 (*) WBC, Urine 51-100 (*) Squamous Epithelial, Urine 11-25 (*) Bacteria, Urine Few (*) Mucus, Urine Few SPECIFIC GRAVITY OF URINE (NUMERIC) 1.020 LACTIC ACID WITH REFLEX - Normal LACTIC ACID 1.1 URINE CULTURE COMPLETE URINALYSIS WITH REFLEX TO CULTURE Narrative: The following orders were created for panel order Complete Urinalysis with reflex to Culture. Procedure Abnormality Status --------- ------ Complete Urinalysis[[id number]] Abnormal Final result Please view results for these tests on the individual orders. All other labs were within normal range or not returned as of this dictation. EMERGENCY DEPARTMENT COURSE and DIFFERENTIAL DIAGNOSIS/MDM: Vitals: Vitals: 03/05/24 1912 03/05/24 1923 03/05/24 2231 BP: (!) 155/59 (!) 112/90 BP Location: Left arm Left arm Patient Position: Sitting Lying Pulse: 90 88 Resp: 18 20 Temp: 37.6 C (99.7 F) SpO2: 100% 100% 100% The patient presented with a chief complaint of altered mental status. The differential diagnosis associated with this patient's presentation includes encephalopathy, urinary tract infection, electrolyte abnormalities, pneumonia. Our workup consisted of ordering/reviewing chest x-ray, urinalysis, labs. PICC line is not functioning for nursing. Based on appearance I do not have significant concern that there is any infection of the PICC line. Would consider a right upper extremity ultrasound to rule out DVT however not available at this time of night. Diagnoses as of 03/06/24 0705 Transient alteration of awareness Lower urinary tract infectious disease UTI (urinary tract infection) Diagnostic tests considered but not performed: Right upper extremity ultrasound External records reviewed: Inpatient notes discharge summary from Dr. Mendoza on 02/28/2024. Patient had been admitted that time for severe sepsis ESBL E. coli UTI bacteremia with recommendations for 2 weeks of IV antibiotics to finish on the . Diagnostics interpreted by me: Xray(s) no evidence of pneumonia Discussions with other clinicians: Admitting team Dr. Fletcher from [facility] hospitalist Admission Criteria: The patient needs Med/surg level of care and not appropriate for a lower acuity location of care due to encephalopathy and need for IV antibiotics for 3 more days with a PICC line that is not functioning Chronic conditions impacting care: Diabetes, COPD, and Heart disease ED Medications managed: Medications - No data to display Patient has a nonfunctioning PICC line and per infectious disease notes the patient needs IV antibiotics for ESBL E. coli until 03/08/2024. I feel the patient should have a right upper extremity ultrasound tomorrow. ID to determine if patient needs a new PICC line and then outpatient completion of the next 2 days of IV antibiotics versus discontinuation of antibiotics or IV antibiotics in the hospital. CRITICAL CARE TIME CONSULTS: None PROCEDURES: Unless otherwise noted below, none Procedures FINAL IMPRESSION 1. Transient alteration of awareness 2. Lower urinary tract infectious disease DISPOSITION Observation 03/05/2024 11:00:04 PM PATIENT REFERRED TO: No follow-up provider specified. DISCHARGE MEDICATIONS: New Prescriptions No medications on file (Comment: Please note this report has been produced using speech recognition software and may contain errors related to that system including errors in grammar, punctuation, and spelling, as well as words and phrases that may be inappropriate. If there are any questions or concerns please feel free to contact the dictating provider for clarification.) JANIE CORTEZ MD (electronically signed) Emergency Medicine Provider Janie Cortez MD 03/05/242299 Pt arrived via EMS from [facility] for complaints of increased confusion and hallucinations at dinner. When EMS arrived, pt was A&O x4. During transport, pt had intermittent confusion in EMS. Pt was seen a week ago in [facility] and was being treated for UTI, which she has completed 1st ATB and is on 2nd one. Pt has PICC line in RAC, but entire arm is painful to touch. documented in this encounter [facility] 03-05-2024 Emergency department Triage note Pt arrived via EMS from [facility] for complaints of increased confusion and hallucinations at dinner. When EMS arrived, pt was A&O x4. During transport, pt had intermittent confusion in EMS. Pt was seen a week ago in [facility] and was being treated for UTI, which she has completed 1st ATB and is on 2nd one. Pt has PICC line in RAC, but entire arm is painful to touch. [facility] 03-05-2024 Physician Emergency department Note EMERGENCY DEPARTMENT ENCOUNTER Pt Name: Kimberly Patel Birthdate 1955 Date of evaluation: 03/05/2024 ED Provider: JANIE CORTEZ MD CHIEF COMPLAINT Chief Complaint Patient presents with Altered Mental Status PER FACILITY, PT STARTED WITH CONFUSION AND HALLUCINATIONS AT [place] FOR UTI PRESENT HISTORY OF PRESENT ILLNESS (Location/Symptom, Timing/Onset, Context/Setting, Quality, Duration, Modifying Factors, Severity) Note limiting factors. I wore appropriate PPE for the entirety of this encounter. HPI Kimberly Patel is a 68 y.o. who presents to the emergency department with chief complaint of altered mental status. Patient reportedly had hallucinations at dinner tonight. For EMS they report that the patient was GCS 15 oriented x 4 on their arrival but then had an episode of confusion and route and then was oriented again prior to arrival to the emergency department. Patient states that she does not have any significant symptoms but states she overall just does not feel well. Denies any chest pain shortness of breath. Has some chronic abdominal pain that she states is no worse than normal. Denies any fever. Patient has a PICC line in the right upper extremity. She denies any significant pain from it. Nursing Notes were reviewed. Limitations to history: None Outside historians: None REVIEW OF SYSTEMS Review of Systems Pertinent positives and negatives as per HPI. PAST MEDICAL HISTORY Past Medical History: Diagnosis Date CHF (congestive heart failure) (CMS/HCC) COPD (chronic obstructive pulmonary disease) (CMS/HCC) Diabetes mellitus (CMS/HCC) SURGICAL HISTORY Past Surgical History: Procedure Laterality Date CHOLECYSTECTOMY COLONOSCOPY throat biopsy CURRENT MEDICATIONS Previous Medications ACETAMINOPHEN (TYLENOL) 325 MG TABLET Take 650 mg by mouth every 6 hours as needed for mild pain (1-3) or fever. ACETYLCYSTEINE (N-ACETYL CYSTEINE) 600 MG CAPSULE CAPSULE Take 600 mg by mouth in the morning and 600 mg in the evening. ALBUTEROL (2.5 MG/3ML) 0.083% NEBULIZER SOLUTION Take 2.5 mg by nebulization 4 times daily as needed for wheezing or shortness of breath. ALBUTEROL 108 (90 BASE) MCG/ACT INHALER Inhale 2 puffs every 4 hours as needed for wheezing. ASPIRIN 81 MG EC TABLET Take 81 mg by mouth daily. ATORVASTATIN (LIPITOR) 40 MG TABLET Take 40 mg by mouth daily. BISACODYL (DULCOLAX) 5 MG EC TABLET Take 5 mg by mouth Daily as needed for constipation. Do not crush, chew, or split. BISACODYL (FLEET BISACODYL) 10 MG/30ML ENEMA Insert 10 mg into the rectum Daily as needed for constipation. BUDESONIDE-FORMOTEROL (SYMBICORT) 160-4.5 MCG/ACT INHALER Inhale 2 puffs in the morning and 2 puffs in the evening. Rinse mouth with water after use to reduce aftertaste and incidence of candidiasis. Do not swallow.. CALCIUM CARBONATE (TUMS) 500 MG CHEWABLE TABLET Chew 500 mg 2 times daily. CLOBETASOL (TEMOVATE) 0.05 % CREAM Apply topically 2 times daily. CYANOCOBALAMIN (VITAMIN B-12) 1000 MCG TABLET Take 1 tablet (1,000 mcg) by mouth daily. DOXYCYCLINE (MONODOX) 100 MG CAPSULE Take 1 capsule (100 mg) by mouth 2 times daily. Take with at least 8 ounces (large glass) of water, do not lie down for 30 minutes after Do not start before March 08, 2024. DUPILUMAB (DUPIXENT) 300 MG/2ML INJECTION Inject 300 mg under the skin every 14 (fourteen) days. ERGOCALCIFEROL (VITAMIN D-2) 1.25 MG (69793 UT) CAPSULE Take 1.25 mg by mouth 1 (one) time per week. Every ERTAPENEM SODIUM IJ Inject 1 g as directed Every 24 hours. FAMOTIDINE (PEPCID) 40 MG TABLET Take 40 mg by mouth daily. FUROSEMIDE (LASIX) 40 MG TABLET Take 40 mg by mouth in the morning and 40 mg in the evening. GUAIFENESIN (ROBITUSSIN) 100 MG/5ML SYRUP Take 200 mg by mouth 3 times daily as needed for cough. HYDROXYZINE HCL (ATARAX) 25 MG TABLET Take 25 mg by mouth every 8 hours as needed for itching. INSULIN GLARGINE (LANTUS) 100 UNIT/ML INJECTION Inject 50 Units under the skin 2 times daily. ISOSORBIDE MONONITRATE ER (IMDUR) 30 MG 24 HR TABLET Take 30 mg by mouth daily. Do not crush or chew. LINAGLIPTIN (TRADJENTA) 5 MG TABLET Take 5 mg by mouth daily. METHENAMINE HIPPURATE (HIPREX) 1 G TABLET Take 1 g by mouth 2 times daily. METOPROLOL SUCCINATE XL (TOPROL-XL) 25 MG 24 HR TABLET Take 25 mg by mouth daily. Do not crush or chew. OXYCODONE-ACETAMINOPHEN (PERCOCET) 5-325 MG TABLET Take 1 tablet by mouth every 6 hours as needed for severe pain (7-10). POLYETHYLENE GLYCOL, PEG, 3350 (MIRALAX) 17 G PACKET Take 17 g by mouth Once. PROMETHAZINE (PHENERGAN) 25 MG TABLET Take 25 mg by mouth every 6 hours as needed for nausea or vomiting. RANOLAZINE (RANEXA) 1000 MG 12 HR TABLET Take 1,000 mg by mouth 2 times daily. Do not crush, chew, or split. SENNA-DOCUSATE SODIUM (SENOKOT-S) 8.6-50 MG TABLET Take 1 tablet by mouth 2 times daily. VENLAFAXINE XR (EFFEXOR XR) 75 MG 24 HR CAPSULE Take 75 mg by mouth daily. Do not crush or chew. WHITE PETROLATUM GEL Apply topically 2 times daily. ALLERGIES Dulaglutide, Empagliflozin, Hydromorphone, Metformin, Morphine, Ondansetron, and Penicillins FAMILY HISTORY No family history on file. SOCIAL HISTORY Social History Socioeconomic History Marital status: Tobacco Use Smoking status: Former Smokeless tobacco: Never Social History Narrative Home with daughter Social Determinants of Health Food Insecurity: No Food Insecurity (02/22/2024) Hunger Vital Sign Worried About Running Out of Food in the Last Year: Never true Ran Out of Food in the Last Year: Never true Transportation Needs: No Transportation Needs (02/22/2024) PRAPARE - Transportation Lack of Transportation (Medical): No Lack of Transportation (Non-Medical): No Intimate Partner Violence: Not At Risk (02/22/2024) Humiliation, Afraid, Rape, and Kick questionnaire Fear of Current or Ex-Partner: No Emotionally Abused: No Physically Abused: No Sexually Abused: No Housing Stability: Unknown (02/22/2024) Housing Stability Vital Sign Unable to Pay for Housing in the Last Year: No Unstable Housing in the Last Year: No SCREENINGS PHYSICAL EXAM ED Triage Vitals [03/05/24 1912] Temp Heart Rate Resp BP 37.6 C (99.7 F) 90 18 (!) 155/59 SpO2 Temp src Heart Rate Source Patient Position 100 % -- Monitor Sitting BP Location FiO2 (%) Left arm -- General appearance: Chronically ill-appearing, no acute distress. Psych: Awake alert and oriented 3. Pleasant and cooperative. Skin: Warm and dry. Right upper extremity PICC line appears clean dry and intact with a dressing overlying it. There is some surrounding ecchymosis. Neck: Supple. Cardiovascular: Regular rate and rhythm Lungs: Clear to auscultation bilaterally, no accessory muscle use, tachypnea, or retractions. Abdomen: Soft, mild diffuse tenderness, and nondistended, no rebound, rigidity, or guarding, positive bowel sounds 4 quadrants. Extremities: Warm and well perfused. NROM and SILT throughout upper and lower extermities. Mild tenderness to palpation just below the dressing for the right upper extremity PICC line. There is no surrounding erythema there is some ecchymosis compartments are soft no significant arm swelling DIAGNOSTIC RESULTS Interpretation per the Radiologist below, if available at the time of this note: XR chest 1 view Final Result FINDINGS/IMPRESSION: The patient is somewhat rotated 1. Lines/Tubes/Devices/Hardware: Right PICC with catheter tip overlying the SVC 2. Lungs: No consolidation or pulmonary edema. 3. Pleura: No pneumothorax or large pleural effusions. 4. Heart and mediastinum: Normal cardiomediastinal contours. Report Dictated on Electronically Signed By: Milad Kirkpatrick MD Electronically Signed Date/Time: 03/05/2024 8:25 PM EDT ED BEDSIDE ULTRASOUND: Performed by ED Physician - none LABS: Labs Reviewed CBC WITH AUTO DIFFERENTIAL - Abnormal Result Value Auto WBC 8.7 RBC 3.19 (*) Hemoglobin 9.3 (*) Hematocrit 29.7 (*) MCV 93.1 MCH 29.2 MCHC 31.3 RDW 16.5 (*) Platelets 342 MPV 8.4 (*) nRBC 0.0 Neutrophils Relative 65.2 Lymphocytes Relative 20.0 Monocytes Relative 8.1 Eosinophils Relative 3.8 Basophils Relative 0.7 Immature Grans % 2.2 (*) Neutrophils Absolute 5.7 Lymphocytes Absolute 1.7 Monocytes Absolute 0.7 Eosinophils Absolute 0.3 Basophils Absolute 0.1 Immature Grans Absolute 0.2 (*) COMPREHENSIVE METABOLIC PANEL - Abnormal SODIUM 137 POTASSIUM 4.7 CHLORIDE 104 CARBON DIOXIDE 25 ANION GAP 7 UREA NITROGEN 24 (*) CREATININE 1.23 (*) GLUCOSE 144 (*) CALCIUM 9.1 AST (SGOT) 21 ALT 22 ALKALINE PHOSPHATASE 95 ALBUMIN 3.1 (*) BILIRUBIN, TOTAL 0.4 TOTAL PROTEIN 5.7 (*) eGFR 48.6 (*) COMPLETE URINALYSIS - Abnormal Color, Urine Yellow Clarity, Urine Turbid (*) pH, Urine 5.0 Leukocytes, Urine 500 (*) Nitrite, Urine Negative Protein, Urine 20 (*) Glucose, Urine Normal Bilirubin, Urine Negative Ketones, Urine Negative Urobilinogen, Urine Normal Blood, Urine Negative RBC, Urine 3-5 (*) WBC, Urine 51-100 (*) Squamous Epithelial, Urine 11-25 (*) Bacteria, Urine Few (*) Mucus, Urine Few SPECIFIC GRAVITY OF URINE (NUMERIC) 1.020 LACTIC ACID WITH REFLEX - Normal LACTIC ACID 1.1 URINE CULTURE COMPLETE URINALYSIS WITH REFLEX TO CULTURE Narrative: The following orders were created for panel order Complete Urinalysis with reflex to Culture. Procedure Abnormality Status --------- ------ Complete Urinalysis[[id number]] Abnormal Final result Please view results for these tests on the individual orders. All other labs were within normal range or not returned as of this dictation. EMERGENCY DEPARTMENT COURSE and DIFFERENTIAL DIAGNOSIS/MDM: Vitals: Vitals: 03/05/24 1912 03/05/24 1923 03/05/24 2231 BP: (!) 155/59 (!) 112/90 BP Location: Left arm Left arm Patient Position: Sitting Lying Pulse: 90 88 Resp: 18 20 Temp: 37.6 C (99.7 F) SpO2: 100% 100% 100% The patient presented with a chief complaint of altered mental status. The differential diagnosis associated with this patient's presentation includes encephalopathy, urinary tract infection, electrolyte abnormalities, pneumonia. Our workup consisted of ordering/reviewing chest x-ray, urinalysis, labs. PICC line is not functioning for nursing. Based on appearance I do not have significant concern that there is any infection of the PICC line. Would consider a right upper extremity ultrasound to rule out DVT however not available at this time of night. Diagnoses as of 03/06/24 0705 Transient alteration of awareness Lower urinary tract infectious disease UTI (urinary tract infection) Diagnostic tests considered but not performed: Right upper extremity ultrasound External records reviewed: Inpatient notes discharge summary from Dr. Mendoza on 02/28/2024. Patient had been admitted that time for severe sepsis ESBL E. coli UTI bacteremia with recommendations for 2 weeks of IV antibiotics to finish on the . Diagnostics interpreted by me: Xray(s) no evidence of pneumonia Discussions with other clinicians: Admitting team Dr. Fletcher from [facility] hospitalist Admission Criteria: The patient needs Med/surg level of care and not appropriate for a lower acuity location of care due to encephalopathy and need for IV antibiotics for 3 more days with a PICC line that is not functioning Chronic conditions impacting care: Diabetes, COPD, and Heart disease ED Medications managed: Medications - No data to display Patient has a nonfunctioning PICC line and per infectious disease notes the patient needs IV antibiotics for ESBL E. coli until 03/08/2024. I feel the patient should have a right upper extremity ultrasound tomorrow. ID to determine if patient needs a new PICC line and then outpatient completion of the next 2 days of IV antibiotics versus discontinuation of antibiotics or IV antibiotics in the hospital. CRITICAL CARE TIME CONSULTS: None PROCEDURES: Unless otherwise noted below, none Procedures FINAL IMPRESSION 1. Transient alteration of awareness 2. Lower urinary tract infectious disease DISPOSITION Observation 03/05/2024 11:00:04 PM PATIENT REFERRED TO: No follow-up provider specified. DISCHARGE MEDICATIONS: New Prescriptions No medications on file (Comment: Please note this report has been produced using speech recognition software and may contain errors related to that system including errors in grammar, punctuation, and spelling, as well as words and phrases that may be inappropriate. If there are any questions or concerns please feel free to contact the dictating provider for clarification.) JANIE CORTEZ MD (electronically signed) Emergency Medicine Provider Janie Cortez MD 03/05/24 2300 [facility] 02-28-2024 Note Hospitalist Discharg e Summary Kimberly Patel : 1955 Admit date: 02/21/2024 Discharge date: 02/28/2024 Admitting Physician: Shmuel Trevino MD Primary Care Physician: Lucy Quick Visit Status: Inpatient admission Code Status: Prior Acute, acute on chronic, unstable/uncontrolled chronic problems/discharge diagnoses: # Severe sepsis 2/2 ESBL E. Coli UTI/bacteremia, improved # ESBL E. Coli bacteremia # ESBL E. Coli UTI # Acute metabolic encephalopathy # Leukocytosis, improved # Elevated troponin likely 2/2 demand ischemia # Sinusitis # Stage II pressure ulcer left buttock Stable chronic problems affecting care, new non-acute discharge diagnoses: # Chronic respiratory failure - on 4 L NC at baseline # HTN # CAD # HFpEF # T2DM with hyperglycemia # COPD # GERD # CKD 3 # Morbid obesity Past Medical History: Diagnosis Date CHF (congestive heart failure) ([facility]) COPD (chronic obstructive pulmonary disease) ([facility]) Diabetes mellitus ([facility]) Procedures: - Right-sided PICC placement (02/27/24) Hospital Course: Kimberly Patel is a 68 y.o. female who presented to ED on 02/21/24 for fever and altered mental status. In ED, initial labs significant for Na 134, BUN 44, Cr 1.29, BG 148, elevated WBC 15.2, Hb 10.0, lactic 2.0. CT Head showed no acute intracranial abnormalities. CXR with no obvious acute findings. CTA chest negative for PE and showed no acute pulmonary abnormalities. UA consistent with UTI; urine cx eventually (+) ESBL E. coli. Blood cx obtained and eventually (+) ESBL E. Coli. Patient was started on IV abx in ED and admitted for further evaluation and management. ID consulted. Repeat blood cx (02/23/24) negative. Geriatrics also consulted/evaluated patient. ID recommended IV Ertapenem x2 weeks from negative cx (through 03/08/24). PICC line placed on 02/27/24. Patient clinically improved and is discharged in improved and stable condition. See discharge diagnoses list above and medication adjustments below in med rec. Consults: IP CONSULT TO GERIATRICS IP WOUND CARE NURSE CONSULT TO EVAL IP CONSULT TO INFECTIOUS DISEASES Discharge Instructions: Diet: Activity: as tolerated Recommended Outpatient Tests: Disposition: Patient discharged in stable condition to [facility] . Greater than 31 minutes spent discharging the patient and coming up with patient discharge plan. Vitals: BP 142/69 (BP Location: Right arm, Patient Position: Lying) Pulse 80 Temp 37.3 ?C (99.1 ?F) (Temporal) Resp 18 Ht 5' 5 (1.651 m) Wt 249 lb 6.4 oz (113 kg) SpO2 100% BMI 41.50 kg/m? Pulse Ox: No data recorded Supplemental O2: O2 Flow Rate (L/min): 4 L/min Physical Exam Constitutional: General: She is not in acute distress. Appearance: She is obese. She is not toxic-appearing. Eyes: Extraocular Movements: Extraocular movements intact. Cardiovascular: Rate and Rhythm: Normal rate and regular rhythm. Pulmonary: Effort: Pulmonary effort is normal. No respiratory distress. Abdominal: General: Bowel sounds are normal. Palpations: Abdomen is soft. Tenderness: There is no abdominal tenderness. Skin: General: Skin is warm and dry. Neurological: Mental Status: She is alert and oriented to person, place, and time. Mental status is at baseline. Psychiatric: Cognition and Memory: Memory is impaired. LABS: Recent Labs 02/27/24 0250 02/28/24 0645 NA 137 139 K 4.7 4.7 CL 106 108* CO2 31* 30 BUN 26* 25* CREATININE 1.30* 1.34* GLUCOSE 137* 120* CALCIUM 8.5 8.1* Recent Labs 02/27/24 0250 02/28/24 0645 WBC 8.5 7.7 RBC 2.92* 2.65* HGB 8.3* 7.6* HCT 27.3* 25.0* MCV 93.5 94.3 MCH 28.4 28.7 MCHC 30.4* 30.4* RDW 15.0 15.2* PLT 286 293 MPV 8.4* 8.3* Discharge Medications: Medication List START taking these medications cyanocobalamin 1000 MCG tablet Commonly known as: Vitamin B-12 Take 1 tablet (1,000 mcg) by mouth daily. CHANGE how you take these medications doxycycline 100 MG capsule Commonly known as: Monodox Take 1 capsule (100 mg) by mouth 2 times daily. Take with at least 8 ounces (large glass) of water, do not lie down for 30 minutes after Do not start before March 08, 2024. Start taking on: March 08, 2024 What changed: These instructions start on March 08, 2024. If you are unsure what to do until then, ask your doctor or other care provider. insulin glargine 100 UNIT/ML injection Commonly known as: Lantus Inject 50 Units under the skin 2 times daily. What changed: how much to take senna-docusate sodium 8.6-50 MG tablet Commonly known as: Senokot-S Take 1 tablet by mouth 2 times daily. What changed: when to take this CONTINUE taking these medications acetaminophen 325 MG tablet Commonly known as: Tylenol * albuterol 108 (90 Base) MCG/ACT inhaler * albuterol (2.5 MG/3ML) 0.083% nebulizer solution aspirin 81 MG EC tablet atorvastatin 40 MG tablet Common (more content not included)... [facility] 02-28-2024 Miscellaneous Notes Dc back to [facility] this evening at [facility]. [facility]. Discussed dc time with patients daughter Alexandro. She did have a question about patients iron and a chat message was sent to Dr. Mendoza. Ambulance form completed. Discharge med list transmitted to return back [facility]. Images from the original note were not included. Care Management Progress Note Discharge order placed. ANN completed. LEGAL RECORDS MANAGER tasked to send discharge paperwork & OPAT to [facility]. SYSTEM OPERATION SUPERINTENDENT notified to set up transport. SNF notified of discharge. Discharge Milestones and Delays Expected Date/Time: 02/28/2024 Afternoon Disposition: Group Home Facility Transport status: No current request Discharge Milestones Place discharge order Complete med reconciliation Case mgmt discharge readiness Clinical Stability Diagnsotic Workup Expected Discharge History Expected Date/Time Set By Reviewed At 02/28/2024 Afternoon Cheko Mendoza MD 02/28/2024 1:56 PM 02/24 Need opat and confirmation from [facility] they take take IV Invanze. [place] [facility] [place]. 02/29/2024 GEORGI Redding 02/28/2024 9:39 AM 02/27/2024 GEORGI Davis 02/26/2024 10:10 AM 02/26/2024 Sejal Thomas RN 02/25/2024 4:02 PM 02/24/2024 Janie Finch MD 02/21/2024 9:39 PM 02/24/2024 Janie Finch MD 02/21/2024 6:09 PM Length of Stay (Days): 7 GMLOS: 5.1 Sent ABX order to return back to [facility] via [facility] per T[facility] request. Await review and response regarding ability to accept. TCC notified. Images from the original note were not included. Care Management Progress Note Medical record reviewed & report received from RN in AM rounds.Pt admitted due to sepsis. ID following recommending IV antibiotic through 03/08. Opat form in chart Geriatrics, ID and wound care following. [facility] can accommodate Invanz infusions. [place] is [place] [facility] & does not need insurance approval to return. PICC placed today. Awaiting attending rounds for decision on discharge today. Discharge Milestones and Delays Expected Date/Time: 02/27/[address] discharge order Complete med reconciliation Case mgmt discharge readiness Clinical Stability Diagnsotic Workup Expected Discharge History Expected Date/Time Set By Reviewed At 02/27/2024 GEORGI Davis 02/26/2024 10:10 AM 02/24 Need opat and confirmation from [facility] they take take IV Invanze. [place] [facility] [place] bed [place]. 02/26/2024 Sejal Thomas RN 02/25/2024 4:02 PM 02/24/2024 Janie Finch MD 02/21/2024 9:39 PM 02/24/2024 Janie Finch MD 02/21/2024 6:09 PM Length of Stay (Days): 6 GMLOS: 5.1 Referral placed to return back to [facility] via [facility] per TCC request. Await review and response regarding ability to accept. TCC notified. Images from the original note were not included. Care Management Progress Note Chart reviewed. Patient continues on 2 east for treatment of confusion and altered mental status. Patient has severe sepsis and awaiting improvement in GFR before discharge. Regular diet. 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 Geriatrics, ID and wound care following. [place] [facility] [place] [facility] Sent [email or web address] chat message today to facility needing confirmation if they can accept IV Invanz -awaiting final response. Patient is total care and bed bound at facility. Will need picc line once blood cultures are final. Uses mohamud lift at facility. DC plan: return to [facility], when medically ready. LEGAL RECORDS MANAGER tasked to send remaining updates to the facility. Messaged ID SETH Chiu Signs requesting opat when ready. Discharge Milestones and Delays Expected Date/Time: 02/26/[address] discharge order Complete med reconciliation Case mgmt discharge readiness Clinical Stability Diagnsotic Workup Expected Discharge History Expected Date/Time Set By Reviewed At 02/26/2024 Sejal Thomas RN 02/25/2024 4:02 PM 02/24 Need opat and confirmation from [facility] they take take IV Invanze. [place] a [place] [facility] bed [place]. 02/24/2024 Janie Finch MD 02/21/2024 9:39 PM 02/24/2024 Janie Finch MD 02/21/2024 6:09 PM Length of Stay (Days): 4 GMLOS: 5.1 Care Coordination Daily Note/Update Clinical Update: admitted with acute metabolic encephalopathy due to UTI and an elevated troponin due to demand ischemia. Changed IV Rocephin to IV ertapenem yesterday - will continue for 2 weeks. ID and Geriatrics consulted. Plan to repeat blood cultures this AM. Mental status improved. Discharge Plan: [facility] ECF Discharge Barriers: clinical stability Chart reviewed. Per Geriatrics consult, plan is to follow up Sunday. IM note from 02/21 anticipates discharge on 02/24. Messaged bedside RN to request update if discharge orders are placed. TCC will continue to follow. Weekend dc form ( ambulance form) completed and placed on patients chart in the event she is ready for dc back to [facility] this . Referral placed to return back to [facility] via [facility] per TCC request. Await review and response regarding ability to accept. TCC notified. Care Managment Initial Assessment Date: 02/22/2024 Patient Name: Kimberly Patel : 1955 Patient Information Source of Information: Patient, Patient Salon Designer Name/Contact Information: Alexandro Cote, DTR [phone] Cognition/Language: WFL - Within Functional Limits Permission given to speak with patient commissary representative/caregiver as indicated: Yes Confirmation of Payer with patient/family: Yes Payer Name: Medicare A/B and [facility] [place]: No Confirmation of Primary Care Physician: Confirmed PCP Name: Lucy Quick Seen in last 2 years?: Yes Primary Caregiver: Self If assistance needed, confirmed caregiver ready, willing and able to care for patient at discharge: Confirmed with: Living Arrangements Current Residence: Number of Floors Number of Entry Steps: Bed/Bath Levels: Facility: Skilled Nursing/[facility] Facility Name: [facility] Plan to Return: Lives with: Other (Comment) (Facility staff) Support Systems: Children Activities of Daily Living Ambulation: Total Care Bathing/Dressing: Total Care Elimination/Continence/Toileting : Total Care Feeding: Total Care Who Assists with Activities of Daily Living: Nursing staff at [facility] Instrumental Activities of Daily Living Prescription Coverage: Yes Pharmacy Used: Skilled Nursing Medication Management: Transportation/Shopping: Independent (Skilled Nursing) Transportation Mode: Payer provided transport service Needs Assistance with Transportation at Discharge: Meal Preparation: Assistance Provider Meal Prep Assistance Provider Name: Skilled Nursing Laundry/Cleaning: Assistance Provider Laundry/Cleaning Assistance Provider Name: Skilled Nursing Finances/Bill Paying: Assistance Provider Finances/Bill Payer Assistance Provider Name: Skilled Nursing Communication: Assistance Types of Care Services/Equipment Utilized Care Services: Dialysis Type: NA Durable Medical Equipment: Mohamud Lift Patient's Goal/Discharge Plan Patient expects to be discharged to: Return to [facility] Discharge Planning Actions: Continue to follow Patient's Choice Rights and [employer] and Collaborative Relationships Disclosed as Indicated for Post-Acute Care: NA Interdisciplinary Team Engagement: Social Work Referral for: Additional Information: Chart reviewed. Patient admitted to [facility] for treatment of confusion and altered mental status. New UTI. CHF, DM. On IV Rocephin. Regular diet. 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 Geriatrics. Met with patient at bedside today. Explained role. Patient reports she is tired and directs me to speak with her daughter. Spoke with Alexandro Cote over the phone, explained role. She is very pleasant. Reports patient is at [facility] and would like patient to return there on discharge once medically ready. She reports patient is a total care and bed bound at facility. Uses a mohamud lift. Will arrange transportation when ready. LEGAL RECORDS MANAGER tasked to begin referral; response pending. Tasked Weekend DP team to follow. SW updated. Sejal Thomas RN The patient is Moderately Unstable - Medium risk of patient condition declining or worsening The patient's goals for the shift include rest The clinical goals for the shift include rest Over the shift, the patient did not make progress toward the following goals. Barriers to progression include infection. Recommendations to address these barriers include antibiotics. documented in this encounter [facility] 02-28-2024 Note Care Management Prog ress Note Discharge order placed. ANN completed. LEGAL RECORDS MANAGER tasked to send discharge paperwork & OPAT to [facility]. SYSTEM OPERATION SUPERINTENDENT notified to set up transport. SNF notified of discharge. Discharge Milestones and Delays Expected Date/Time: 02/28/2024 Afternoon Disposition: Group Home Facility Transport status: No current request Discharge Milestones Place discharge order Complete med reconciliation Case mgmt discharge readiness Clinical Stability Diagnsotic Workup Expected Discharge History Expected Date/Time Set By Reviewed At 02/28/2024 Afternoon Cheko Mendoza MD 02/28/2024 1:56 PM 02/24 Need opat and confirmation from [facility] they take take IV Invanze. [place] [facility] [place]. 02/29/2024 Ann Decker, SYSTEM OPERATION SUPERINTENDENT 02/28/2024 9:39 AM 02/27/2024 Nuno Fernandez, GEORGI 02/26/2024 10:10 AM 02/26/2024 Sejal Thomas RN 02/25/2024 4:02 PM 02/24/2024 Janie Finch MD 02/21/2024 9:39 PM 02/24/2024 Janie Finch MD 02/21/2024 6:09 PM Length of Stay (Days): 7 GMLOS: 5.1 [facility] 02-28-2024 Hospital Discharg e instructions Cheko Mendoza MD - 02/28/2024 7:41 AM EDT Continuity of Care Form Patient Name: Kimberly Patel : 1955 Admit date: 02/21/2024 Discharge date: 02/28/2024 Code Status Order: Full Code Advance Directives: N Admitting Physician: Shmuel Trevino MD PCP: Lucy Quick Discharging Nurse: Kimberley Hair RN Discharging Hospital Unit/Room#: B2-255/B2-255 A Discharging Unit Emergency Contact: Extended Emergency Contact Information Primary Emergency Contact: Alexandro Cote Mobile Relation: Daughter Preferred language: Mone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 Past Surgical History: Past Surgical History: Procedure Laterality Date CHOLECYSTECTOMY COLONOSCOPY throat biopsy Immunization History: There is no immunization history on file for this patient. Active Problems: Medical Problems Problem List * (Principal) Sphenoid sinusitis, unspecified chronicity Bullous pemphigoid Acute on chronic diastolic congestive heart failure (HCC) Bipolar disorder, most recent episode depressed ([facility]) ([facility]) UTI (urinary tract infection) Physical debility (Chronic) Other hyperlipidemia CAD (coronary artery disease) Primary hypertension Neuropathy Bacteremia Acute kidney injury superimposed on CKD ([facility]) ([facility]) Type 2 diabetes mellitus with diabetic polyneuropathy, with long-term current use of insulin (HCC) Isolation/Infection: Contact ESBL Nurse Assessment: Last Vital Signs: BP 125/57 (BP Location: Left arm, Patient Position: Lying) Pulse 82 Temp 36.5 C (97.7 F) (Temporal) Resp 18 Ht 1.651 m (5' 5) Wt 113 kg (249 lb 6.4 oz) SpO2 100% BMI 41.50 kg/m Last documented pain score (0-10 scale): Last Weight: Wt Readings from Last 1 Encounters: 02/25/24 113 kg (249 lb 6.4 oz) Mental Status: ANN Patient Mental Status: oriented and alert IV Access: ANN IV Access: PICC - site: upper arm right, condition {iv condition:321520::patent,no redness}, insertion date: 02/27/2024 Nursing Mobility/ADLs: Walking Total assistance Transfer Total assistance Bathing Total assistance Dressing Total assistance Toileting Total assistance Feeding Independent Transit Clerk Independent Med Delivery no Wound Care Documentation and Therapy: Wound/Incision 02/21/24 Pressure Injury Buttock Left (Active) Site Assessment [place];Red 02/27/242029 Odor None 02/26/24 0800 Drainage Amount None 02/26/24 0800 Treatments Site care;Cleansed 02/27/242029 Primary Dressing Open to air 02/27/242029 Dressing Status Clean, dry & intact 02/26/241958 State of Healing Epithelialized 02/22/24 0940 Number of days: 6 Elimination: Continence: Bowel: no Bladder: no Urinary Catheter: None Colostomy/Ileostomy/Ileal Conduit: None Date of Last BM: 02/27/2024 No intake or output data in the 24 hours ending 02/28/24 0740 I/O last 3 completed shifts: In: - (0 mL/kg) Out: 300 (2.7 mL/kg) [Urine:300 (0.1 mL/kg/hr)] Weight: 113.1 kg Safety Concerns: none Impairments/Disabilities: vision Nutrition Therapy: Current Nutrition Therapy: Oral diet: carb control 4 carbs/meal (1800kcals/day) Routes of Feeding: oral Liquids: thin liquids Daily Fluid Restriction: no Last Modified Barium Swallow with Video (Video Swallowing Test): not done Treatments at the Time of Hospital Discharge: Respiratory Treatments: none Oxygen Therapy: is on oxygen at 4 L/min per nasal cannula. Ventilator: No ventilator support Rehab Therapies: physical therapy and occupational therapy Weight Bearing Status/Restrictions: non-weight bearing Other Medical Equipment (for information only, NOT a DME order): mohamud lift Other Treatments: none Patient's personal belongings (please select all that are sent with patient): {ANN Patient Belongings:[id number]} RN SIGNATURE: MANAGEMENT/SOCIAL WORK SECTION Inpatient Status Date: Readmission Risk Assessment Score: @READMISSIONRISKDETAILS@ Discharging to Facility/ Agency Name: [facility] Address: [address] [place] [id number] Dialysis Facility (if applicable) Name: Address: Dialysis Schedule: Phone: Fax: Short Order Fry Cook/Masticator signature: ICIAN SECTION Prognosis: good Condition at Discharge: stable Rehab Potential (if transferring to Rehab): fair Recommended Labs or Other Treatments After Discharge: - BMP, CBC in 2 days. Monitor K and replete PRN. - Monitor BG and add SSI if needed - Continue IV Ertapenem until 03/08/2024 per ID recs - Wound care - PT/OT Physician Certification: I certify the above information and transfer of Kimberly Patel is necessary for the continuing treatment of the diagnosis listed and that she requires senior care facility for less than 30 days. Update Admission H&P: No change in H&P PHYSICIAN SIGNATURE: The following attachments cannot be sent through Care Everywhere.Fever, Adult ED (Monegasque)documented in this encounter [facility] 02-28-2024 History of Presen t illness Narrative Pt refused to allow X RAY DEVELOPER to obtain Accucheck glucose level. Nurse used am BMP glucose level of 120 for am coverage. Nurse advised pt that for lunch and dinner pt will need to have bgl levels checked prior to eating. Pt agreeable. [facility] Geriatric Medicine Inpatient Consult Service Admission Date: 02/21/2024 Assessment Principal Problem: Sphenoid sinusitis, unspecified chronicity Active Problems: UTI (urinary tract infection) Plan Metabolic encephalopathy --appears resolved. No use of PRN Seroquel. --Etiology likely related to bacteremia/UTI, change of environment --Encourage PO intake, time up in chair, family visits, supervised ambulation, and sleep hygiene --If agitated, assess for and consider treating for pain --QTc= 448 --No antipsychotic unless patient is danger to self/others/treatment --continue PRN melatonin at HS --continue Seroquel 12.5mg BID PRN for agitation, recommend stopping prior to discharge --Monitor for constipation/urinary retention - last BM 02/23 --Possible medication contributions: -avoid hydroxyzine if possible as may worsen cognition due to anticholinergic effects Bipolar disorder -Has been under reasonable control, does not routinely have hallucinations Depression -continue Effexor Functional impairment/bedbound/mohamud dependent -plan to return to facility, likely LTC -patient refused PT/OT Borderline B12 -Continue B12 PO daily Follow-up: prn, please page with any questions/issues Subjective Chief Complaint: fatigue Geriatrics consulted for Delirium HPI- The patient is known to me. 68 year old with PMH of CHF, COPD, DM who presented to the hospital on 02/21/24 with complaints of change in mental status. She resides at [facility]. Family reported has had several hospitalizations with similar symptoms particularly when associated UTI and bloodstream infection. Medical record shows several ED visits for change in mental status and hallucinations over past 6-9 months. History of bipolar disorder that has been under control. Reviewed all notes -PICC placed today for [facility] antibiotics -dietary - no malnutrition -ID - severe sepsis improved. Ecoli bacteremia, UTI, sinusitis Interval History: Remains on telemetry. -Patient stated she just fell asleep and just wants to sleep. Doesn't sleep well during the night due to interruptions. Reports intermittent pain, does not specify. -No nursing concerns Review of Systems Constitutional: Positive for fatigue. Negative for fever. Respiratory: Negative for cough and shortness of breath. Gastrointestinal: Negative for abdominal pain, constipation, diarrhea and nausea. Genitourinary: Negative for difficulty urinating. Neurological: Positive for weakness. Negative for dizziness. Psychiatric/Behavioral: Positive for sleep disturbance. Objective BP 149/84 (BP Location: Right arm, Patient Position: Sitting) Pulse 81 Temp 36.6 C (97.8 F) (Oral) Resp 16 Ht 5' 5 (1.651 m) Wt 249 lb 6.4 oz (113 kg) SpO2 100% BMI 41.50 kg/m Intake/Output Summary (Last 24 hours) at 02/27/2024 1531 Last data filed at 02/26/2024 2146 Gross per 24 hour Intake -- Output 300 ml Net -300 ml Wt Readings from Last 3 Encounters: 02/25/24 249 lb 6.4 oz (113 kg) 10/19/21 279 lb (127 kg) 10/18/21 279 lb (127 kg) Current Facility-Administered Medications: acetaminophen (Tylenol) tablet 650 mg, 650 mg, Oral, q6h PRN, 650 mg at 02/27/24 1439 OR acetaminophen (Tylenol) suppository 650 mg, 650 mg, Rectal, q6h PRN, Shmuel Trevino MD aspirin EC tablet 81 mg, 81 mg, Oral, Daily, Rob Lai MD, 81 mg at 02/27/24 0907 atorvastatin (Lipitor) tablet 40 mg, 40 mg, Oral, Daily, Rob Lai MD, 40 mg at 02/27/24 0906 bisacodyl (Dulcolax) EC tablet 5 mg, 5 mg, Oral, Daily PRN, Rob Lai MD cyanocobalamin (Vitamin B-12) tablet 1,000 mcg, 1,000 mcg, Oral, Daily, Marisa Su APRN - TOUR ACTOR, 1,000 mcg at 02/27/24 0917 dextrose 5 % infusion, 100 mL/hr, IntraVENous, PRN, Shmuel Trevino MD dextrose 50 % solution 12.5 g, 12.5 g, IntraVENous, PRN, Shmuel Trevino MD enoxaparin (Lovenox) syringe 40 mg, 40 mg, SubCUTAneous, Daily, Shmuel Trevino MD, 40 mg at 02/27/24 0907 ertapenem (INVanz) 1,000 mg in sodium chloride 0.9 % 50 mL IVPB Mini-Bag Plus, 1,000 mg, IntraVENous, q24h, Clare Del Cid MD, Stopped at 02/27/24 0937 famotidine (Pepcid) tablet 40 mg, 40 mg, Oral, Daily, Rob Lai MD, 40 mg at 02/27/24 09 glucagon (human recombinant) injection 1 mg, 1 mg, IntraMUSCular, PRN, Shmuel Trevino MD glucose oral gel 15 g, 15 g, Oral, PRN, Shmuel Trevino MD insulin glargine (Lantus) injection 50 Units, 50 Units, SubCUTAneous, BID, Shmuel Trevino MD, 50 Units at 02/27/24 0907 Insulin Lispro (Humalog) injection 0-12 Units, 0-12 Units, SubCUTAneous, TID WC, 2 Units at 02/26/24 1641 AND Insulin Lispro (Humalog) injection 0-12 Units, 0-12 Units, SubCUTAneous, Nightly, Shmuel Trevino MD, 4 Units at 02/26/24 2115 ipratropium-albuterol (Duo-Neb) 0.5-2.5 mg/3 mL nebulizer solution 3 mL, 3 mL, Nebulization, q4h PRN, Shmuel Trevino MD isosorbide mononitrate ER (Imdur) 24 hr tablet 30 mg, 30 mg, Oral, Daily, Rob Lai MD, 30 mg at 02/27/24 09 ketoconazole (NIZOral) 2 % cream, , Topical, BID, Manisha Tao, HAM DOCTOR - TOUR ACTOR, Given at 02/27/24 0916 methenamine hippurate (Hiprex) tablet 1 g, 1 g, Oral, BID, Rob Lai MD, 1 g at 02/27/24 0917 metoprolol succinate XL (Toprol-XL) 24 hr tablet 25 mg, 25 mg, Oral, Daily, Rob Lai MD, 25 mg at 02/27/24 09 naloxone (Narcan) injection 0.4 mg, 0.4 mg, IntraVENous, q5 min PRN, Shmuel Trevino MD oxyCODONE-acetaminophen (Percocet) 5-325 MG per tablet 1 tablet, 1 tablet, Oral, q6h PRN, Rob Lai MD, 1 tablet at 02/27/24 1005 polyethylene glycol (PEG) 3350 (Miralax) packet 17 g, 17 g, Oral, Daily PRN, Shmuel Trevino MD potassium chloride CR (Klor-Con M10) ER tablet 10 mEq, 10 mEq, Oral, Daily, Blanche Castillo MD, 10 mEq at 02/27/24 0906 promethazine (Phenergan) tablet 12.5 mg, 12.5 mg, Oral, q6h PRN OR promethazine (Phenergan) injection 12.5 mg, 12.5 mg, IntraMUSCular, q6h PRN, 12.5 mg at 02/22/24 0416 OR promethazine (Phenergan) suppository 12.5 mg, 12.5 mg, Rectal, q6h PRN, Rob Lai MD QUEtiapine (SEROquel) tablet 12.5 mg, 12.5 mg, Oral, BID PRN, Shmuel Trevino MD ranolazine (Ranexa) 12 hr tablet 1,000 mg, 1,000 mg, Oral, BID, Rob Lai MD, 1,000 mg at 02/27/24 0906 senna-docusate sodium (Senokot-S) 8.6-50 MG tablet 1 tablet, 1 tablet, Oral, BID, Shmuel Trevino MD, 1 tablet at 02/27/24 0906 venlafaxine XR (Effexor XR) 24 hr capsule 75 mg, 75 mg, Oral, Daily, Rob Lai MD, 75 mg at 02/27/24 0907 Physical Exam Constitutional: General: She is not in acute distress. HENT: Mouth/Throat: Mouth: Mucous membranes are moist. Cardiovascular: Rate and Rhythm: Normal rate and regular rhythm. Pulmonary: Effort: Pulmonary effort is normal. Breath sounds: Normal breath sounds. No wheezing or rhonchi. Abdominal: General: Bowel sounds are normal. Palpations: Abdomen is soft. Tenderness: There is no abdominal tenderness. Musculoskeletal: Right lower leg: Edema present. Left lower leg: Edema present. Comments: Trace edema bilaterally Neurological: Mental Status: She is alert. Comments: Not answering all questions Psychiatric: Attention and Perception: Attention normal. Mood and Affect: Affect is flat. Labs and Imaging: Recent Results (from the past 24 hour(s)) POCT glucose meter Collection Time: 02/26/24 4:33 PM Result Value Ref Range Glucose 186 (H) 70 - 100 mg/dL POCT glucose meter Collection Time: 02/26/24 9:03 PM Result Value Ref Range Glucose 207 (H) 70 - 100 mg/dL CBC auto differential Collection Time: 02/27/24 2:50 AM Result Value Ref Range Auto WBC 8.5 3.6 - 10.7 10*3/uL RBC 2.92 (L) 3.80 - 5.20 10*6/uL Hemoglobin 8.3 (L) 11.7 - 16.0 g/dL Hematocrit 27.3 (L) 35.0 - 47.0 % MCV 93.5 77.0 - 99.0 fL MCH 28.4 26.0 - 34.0 pg MCHC 30.4 (L) 30.5 - 36.0 % RDW 15.0 11.5 - 15.0 % Platelets 286 140 - 440 10*3/uL MPV 8.4 (L) 9.0 - 12.7 fL Comprehensive metabolic panel Collection Time: 02/27/24 2:50 AM Result Value Ref Range SODIUM 137 135 - 145 mmol/L POTASSIUM 4.7 3.5 - 5.1 mmol/L CHLORIDE 106 98 - 107 mmol/L CARBON DIOXIDE 31 (H) 22 - 30 mmol/L ANION GAP 0 (L) 3 - 13 mmol/L UREA NITROGEN 26 (H) 7 - 17 mg/dL CREATININE 1.30 (H) 0.52 - 1.04 mg/dL GLUCOSE 137 (H) 70 - 100 mg/dL CALCIUM 8.5 8.4 - 10.4 mg/dL AST (SGOT) 20 15 - 46 U/L ALT 19 0 - 34 U/L ALKALINE PHOSPHATASE 68 38 - 126 U/L ALBUMIN 2.6 (L) 3.5 - 5.0 g/dL BILIRUBIN, TOTAL 0.2 0.2 - 1.3 mg/dL TOTAL PROTEIN 5.2 (L) 6.3 - 8.2 g/dL eGFR 45.4 (L) >60.0 mL/min/1.73m*2 MANUAL DIFFERENTIAL (CELLAVISION) Collection Time: 02/27/24 2:50 AM Result Value Ref Range RBC Morphology abnormal Poikilocytes Rare (A) (none) Stomatocytes Slight (A) (none) Neutrophils % 66 38 - 82 % Bands % 2 (H) <=0 % Lymphocytes % 20 15 - 45 % Monocytes % 4 (L) 5 - 13 % Eosinophils % 2 0 - 6 % Basophils % 3 (H) 0 - 2 % Myelocytes % 3 (H) <=0 % Absolute Neutrophil Count 5.8 1.8 - 7.5 10*3/uL Bands Absolute 0.2 (H) <=0.0 10*3/uL Lymphocytes Absolute 1.7 1.0 - 4.3 10*3/uL Monocytes Absolute 0.3 0.0 - 0.9 10*3/uL Eosinophils Absolute 0.2 0.0 - 0.5 10*3/uL Basophils Absolute 0.3 (H) 0.0 - 0.2 10*3/uL Myelocytes Absolute 0.3 (H) <=0.0 10*3/uL Neutrophils Manual 67 Lymphocytes Manual 20 Monocytes Manual 4 Eosinophils Manual 2 (H) 0 - 1 Basophils Manual 3 Bands Manual 2 Metamyelocytes Manual Myelocytes Manual 3 Promyelocytes Manual Blasts Manual Atypical Lymphocytes Manual Unclassified Cells, Manual POCT glucose meter Collection Time: 02/27/24 8:56 AM Result Value Ref Range Glucose 135 (H) 70 - 100 mg/dL POCT glucose meter Collection Time: 02/27/24 12:07 PM Result Value Ref Range Glucose 134 (H) 70 - 100 mg/dL Lab Results Component Value Date TSH 1.267 02/22/2024 Lab Results Component Value Date [id number] 294 02/22/2024 No results found for: VITD25 Reviewed: allergies, previous encounters, imaging, active problem lists, medications, and labs Nutrition Assessment Type and Reason for Visit: Reassess Nutrition Recommendations/Plan: Continue diet as ordered Adult diet Regular; 4 carb choices (60 gm/meal) Please continue to record meal intakes in RN Flowsheets RD to monitor po intake /reassess need for supplement, labs, weight, skin status; follow up weekly Malnutrition Assessment: Malnutrition Status: No malnutrition Context: Acute Illness Findings of the 6 clinical characteristics of malnutrition: Energy Intake: No significant decrease in energy intake Weight Loss: Unable to assess (weights highly variable) Body Fat Loss: No significant body fat loss Muscle Mass Loss: No significant muscle mass loss Fluid Accumulation: Mild Extremities 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 Severe sepsis improved. Acute metabolic encephalopathy due to UTI- improving, ESBL- E coli bacteremia. PICC line planned. ID and Geriatrics following. MAMMOGRAPHY TECHNICIAN 02/22 rec'd regular diet textures. Pt sleeping on visit -awakened easily reports good appetite tolerating meals. Discharge planning to ECF -pt reports possible discharge today Estimated Daily Nutrient Needs: Energy Requirements Based On: Kcal/kg Weight Used for Energy Requirements: [place] Weight for Energy Calculation (kg): 57 kg Total Energy Requirements (kcals/day): 1425- 1710 (25-30 kcal/kg IBW) Weight Used for Protein Requirements: [place] Weight in Kg Used for Protein Requirements: 57 kg Estimated Total Protein (g/day): 57-68 (1.0-1.2 g protein/kg IBW) Estimated Daily Total Fluid (ml/day): per MD Nutrition Related Findings: +1 cherise LE edema, loose bm 02/23. bun 26/cr 1.30, bgluc 137, alb 2.6. meds include insulin, k+. wt hx reviewed -variable ?accuracy of measures Wound Type: Pressure Injury, Wound Consult Pending 02/25/24 0456 113 kg (249 lb 6.4 oz) 02/24/24 0518 113 kg (250 lb 1.6 oz) 02/23/24 0500 112 kg (246 lb 4.8 oz) 02/22/24 0612 133 kg (293 lb 3.4 oz) 02/21/24 1031 133 kg (294 lb) Current Nutrition Therapies: Adult diet Regular; 4 carb choices (60 gm/meal) Current Oral Intake Average Meal Intake: 76-100% Average Supplements Intake: None Ordered Anthropometric Measures: Height: 165.1 cm (5' 5) Current Body Weight: 107 kg (235 lb 3.7 oz) Weight Source: Bed Scale Admission Body Weight: 133 kg (294 lb) (stated) Usual Body Weight: 114 kg (251 lb) (07/09/2023) % Weight Change (Calculated): -6.3 [place] Body Weight (lbs) (Calculated): 125 lbs [place] Body Weight (Kg) (Calculated): 57 kg % [place] Body Weight (Calculated): 188.2 % BMI (kg/m2) (Calculated): 39.1 Weight Adjustment For: No Adjustment BMI Categories: Obese Class 2 (BMI 35.0 -39.9) Nutrition Diagnosis: Increased nutrient needs related to acute injury/trauma as evidenced by (ESBL- E coli bacteremia due to UTI.) Altered nutrition-related lab values related to endocrine dysfuntion as evidenced by lab values Nutrition Interventions: Nutrition Education/Counseling: Education declined Coordination of Nutrition Care: Continue to monitor while inpatient Plan of Care discussed with: patient Goals: Previous Goal Met: Progressing toward Goal(s) Goals: PO intake 75% or greater, prior to discharge Nutrition Monitoring and Evaluation: Behavioral-Environmental Outcomes: None Identified Food/Nutrient Intake Outcomes: Food and Nutrient Intake Physical Signs/Symptoms Outcomes: Biochemical Data, Chewing or Swallowing, GI Status, Nausea or Vomiting, Fluid Status or Edema, Hemodynamic Status, Nutrition Focused Physical Findings, Skin, Weight Discharge Planning: Continue current diet Debbie Mccoy RD Contact: *[phone] or via Secure Chat Images from the original note were not included. [facility] - Infectious Diseases Attending Progress Note Subjective: Follow up for Sepsis, ESBL- E coli bacteremia. She was alert, laying on bed; has chronic weakness, inability to walk, and use of 4L O2; denied fever, chill, chest pain, sob, abdominal pain, nausea, vomiting, diarrhea, or constipation; appeared debilitated but comfortable. She was admitted on 02/21/24 from SNF due to mental status change and fever of 107F ; in ED on presentation, she was tachycardic (P 109), hypoxic (Pox 89%); labs showed leukocytosis (15.2k), elevated creatinine (1.29), lactic acidosis (2.0), pyuria (>100 wbc), CT head showed Mucosal thickening in the paranasal sinuses and fluid in the right sphenoid sinus, ceftriaxone was given in ED. She was examined; notes, labs, imaging were reviewed and treatment plan was discussed. Objective: Vitals: Patient Vitals for the past 24 hrs: BP Temp Temp src Pulse Resp SpO2 02/26/24 0857 152/74 36.8 C (98.2 F) Temporal 81 17 100 % 02/25/244 128/84 36.4 C (97.5 F) Temporal 86 16 100 % Physical Exam Vitals and nursing note reviewed. Constitutional: General: She is in no acute distress. Appearance: She is obese. She is ill-appearing but non-toxic. Eyes: Extraocular Movements: Extraocular movements intact. Conjunctiva/sclera: Conjunctivae normal. Pupils: Pupils are equal, round, and reactive to light. Cardiovascular: Rate and Rhythm: Regular rhythm. Tachycardia decreased. Heart sounds: Normal heart sounds. Pulmonary: Effort: Pulmonary effort is normal. Breath sounds: Normal breath sounds. Musculoskeletal: Cervical back: No rigidity. Right foot: Swelling present. Left foot: Swelling present. Neurological: Mental Status: She is alert and oriented to person, place, and time. Cranial Nerves: Cranial nerves 2-12 are intact. Sensory: Sensation is intact. Motor: No tremor. Coordination: Ypojja-Hboq-Ywlzel Test normal. Psychiatric: Attention and Perception: Perception normal. Speech: Speech is ok. Labs: Recent Labs 02/24/240 02/25/245 02/26/24 0209 NA 135 135 136 K 3.4* 4.0 4.2 CL 102 106 107 CO2 30 28 30 BUN 33* 28* 23* CREATININE 1.42* 1.25* 1.23* GLUCOSE 105* 149* 113* CALCIUM 8.5 8.3* 8.5 PROT 5.2* 4.7* 4.9* BILITOT 0.3 0.2 0.2 ALKPHOS 66 63 75 AST 27 18 18 ALT 24 20 19 Recent Labs 02/24/24 0220 02/25/245 02/26/24 0210 WBC 8.3 6.5 7.5 HGB 8.6* 8.1* 8.2* HCT 27.7* 26.5* 26.7* PLT 196 210 244 LYMPHOPCT 22.7 30.8 26 MONOPCT 12.4 10.0 10 BASOPCT 0.2 0.5 -- NEUTROABS 4.9 3.3 -- Micro: No results for input(s): COVID19 in the last 72 hours. 02/25/2024 1536 02/25/2024 1540 Urine culture [[id number]] Urine, Clean Catch In process Component Value No component results 02/23/2024 0439 02/26/2024 1101 Blood culture Site #2 - Assess for effectiveness of treatment [[id number]] Blood, Venous Preliminary result Component Value Blood Culture No growth at 72 hours P 02/23/2024 0438 02/26/2024 1101 Blood culture Site #1 - Assess for effectiveness of treatment [[id number]] Blood, Venous Preliminary result Component Value Blood Culture No growth at 72 hours P 02/21/2024 1759 02/25/2024 0824 Urine culture [[id number]] (Abnormal) Urine, Clean Catch Final result Component Value Urine Culture Normal urogenital krys present >100,000 CFU/mL Escherichia coli Abnormal This phenotype is suggestive of an ESBL-producing organism. Treatment with beta-lactam antibiotics other than carbapenems may not be effective. >100,000 CFU/mL Enterococcus faecalis Abnormal 02/21/2024 1135 02/21/2024 1628 COVID-19, Flu A/B, and RSV Combo [[id number]] Swab from Nasopharynx Final result Component Value SARS-CoV-2 Not Detected Respiratory Syncytial Virus Not Detected Influenza A Not Detected Influenza B Not Detected 02/21/2024 1124 02/24/2024 0948 Blood culture Site #1 - Suspected Infection [[id number]] (Abnormal) Blood, Venous Final result Component Value Blood Culture Escherichia coli Panic This phenotype is suggestive of an ESBL-producing organism. Treatment with beta-lactam antibiotics other than carbapenems may not be effective. This is an edited result. Previous organism was Gram-negative bacilli on 02/22/2024 at 0622 EDT. 02/21/2024 1124 02/22/2024 0622 Blood Culture Identification - Anaerobic [[id number]] (Abnormal) Blood, Venous Final result Component Value Escherichia coli Detected Abnormal CTX-M (ESBL gene) Detected Abnormal Lines: PIV Radiography/Echo/Other: US renal complete [[id number]] Collected: 02/22/241800 Order Status: Completed Updated: 02/22/241806 Narrative: Patient Name: KIMBERLY PATEL : 1955 Exam Date/Time: 02/22/2024 17:23 Procedure: US RENAL COMPLETE Ordering Provider: DEL CID DEEPTHI Reason For Exam: r/o obstruction Examination: Renal ultrasound Clinical Indication: r/o obstruction Comparison: Correlation with CTA chest partial yesterday and ultrasound May 02, 2022 Findings: Multiplanar grayscale sonographic images were obtained through the kidneys and bladder. The right kidney measures 10.5 x 5.2 x 5.5 cm. No renal cysts. Stable cortical thinning. No solid renal parenchymal lesion, hydronephrosis, or shadowing renal calculus. Normal echotexture. The left kidney measures 11.4 x 5.2 x 5.4 cm. No renal cysts. No solid renal parenchymal lesion, hydronephrosis, or shadowing renal calculus. Normal echotexture. The urinary bladder is partially distended and overall suboptimally visualized. Impression: Impression: Stable sonographic appearance of the kidneys, including the right renal cortical thinning. No hydronephrosis. Report Dictated on Electronically Signed By: Edwni Vaz MD Electronically Signed Date/Time: 02/22/2024 6:06 PM EDT CTA chest angiogram w and/or wo IV contrast [[id number]] Collected: 02/21/24 1348 Order Status: Completed Updated: 02/21/24 1357 Narrative: Patient Name: KIMBERLY PATEL : 1955 Exam Date/Time: 02/21/2024 13:41 Procedure: CT CHEST ANGIOGRAM W AND/OR WO IV CONTRAST Ordering Provider: STEWART NISHIT Reason For Exam: Pulmonary embolism (PE) suspected, positive D-dimer EXAMINATION: CT CHEST ANGIOGRAM W AND/OR WO IV CONTRAST CLINICAL HISTORY: Pulmonary embolism (PE) suspected, positive D-dimer COMPARISON: None TECHNIQUE: Axial images of the chest were obtained from above the lung apices through the level of the adrenal glands during the bolus administration of intravenous contrast. Multiplanar and 3D maximum intensity projection reformulation's were created from the raw CT data which were interpreted in conjunction with the axial images to render the findings listed below. Dose reduction was employed with automated exposure control. FINDINGS: Exam Quality: Overall exam quality is suboptimal. Pulmonary arterial enhancement is optimal, the breath hold is suboptimal, and there are significant artifacts impacting image quality. Pulmonary Arteries: There are no filling defects within the pulmonary arterial system to suggest pulmonary embolus, to the segmental level. Cardiovasculature: The heart is large. Severe three-vessel coronary calcification. Atherosclerotic calcifications within the thoracic aorta. Mediastinum/Pericardium: There is a hiatal hernia. Pleura: Unremarkable Central Airways: Widely patent Lungs: Motion artifact. No focal consolidation. Nodules: No nodules are present that require follow up. Lymph Nodes: No thoracic lymphadenopathy is evident. Visualized musculoskeletal structures: No acute fracture or destructive osseous lesion is identified. Included images of the upper abdomen: Unremarkable Impression: 1. No PE identified. PE cannot be evaluated beyond the pulmonary artery proximal segmental level due to study limitations above. 2. No acute pulmonary abnormalities. 3. Cardiomegaly and three-vessel coronary artery calcification. Report Dictated on Electronically Signed By: Frankie Patel MD Electronically Signed Date/Time: 02/21/2024 1:56 PM EDT XR chest 1 view [[id number]] Collected: 02/21/24 1219 Order Status: Completed Updated: 02/21/24 1220 Narrative: [facility] 1955 [id number] Exam Date/Time: 02/21/2024 12:03 Procedure: XR CHEST 1 VIEW Ordering Provider: STEWART NISHIT Reason For Exam: hypoxemia AP CHEST X-RAY CLINICAL INDICATION: hypoxemia TECHNIQUE: AP portable x-ray of the chest. COMPARISON: 04/30/2022 FINDINGS: Limitations: The study is limited due to patient rotation and patient positioning. Lines/Tubes: None Heart/Mediastinum: Indeterminate Lungs: Grossly clear. Bones: Unremarkable Impression: Limited study with no obvious acute findings. Report Dictated on Electronically Signed By: Frankie Patel MD Electronically Signed Date/Time: 02/21/2024 12:[address] head wo IV contrast [[id number]] Collected: 02/21/24 1153 Order Status: Completed Updated: 02/21/24 1156 Narrative: [facility] Name[facility]IM[facility] 1955 [id number] Exam Date/Time: 02/21/2024 11:44 Procedure: CT HEAD WO IV CONTRAST Ordering Provider: STEWART NISHIT Reason For Exam: Mental status change, unknown cause CT HEAD WITHOUT CONTRAST CLINICAL HISTORY: Mental status change, unknown cause COMPARISON: 10/02/2021 TECHNIQUE: Helical CT of the brain without contrast. Dose reduction was employed with automated exposure control. FINDINGS: Acute Findings: No hemorrhage, mass, or infarct. Chronic Changes: None identified. Ventricles and sulci: Stable generalized parenchymal volume loss. No hydrocephalus. Other: Opacified right sphenoid sinus and mucosal thickening in the left sphenoid sinus, posterior ethmoid air cell, and right maxillary sinus. Retained fluid partially opacifies the mastoid air cells bilaterally. No acute osseous findings. Impression: 1. No acute intracranial abnormalities. 2. Mucosal thickening in the paranasal sinuses and fluid in the right sphenoid sinus. Please correlate for sinusitis. Report Dictated on Electronically Signed By: Frankie Patel MD Electronically Signed Date/Time: 02/21/2024 11:55 AM EDT Antimicrobials, Start/End Dates: Ceftr 02/20- Erta 02/21- Impression: Severe sepsis. Improved. ESBL- E coli bacteremia. UTI. Sinusitis. Chronic resp failure. Obesity disorder. Poorly controlled DM. Plan: Pt sick due to sepsis due to ESBL- E coli bacteremia due to UTI. Afebrile, hemodynamically ok. Recent blood cxs on 02/22 -neg so far. Continue ertapenem for 2 weeks from neg cx date, through 03/08/24. Surveillance blood cx x2 on 03/17/24. Opat to follow. Needs PICC line. Please call with any further question. Total time 50 minutes on this day of encounter includes counseling, coordinating plan of care, record and documentation review before and after visit including documentation and time not explicitly included on EMR time stamp for accounting for open encounter. Images from the original note were not included. [id number]: Please page me ([phone]) for patient care issues. : Please page [facility] Hospitalist for any issues. Subjective: Admit Date: 02/21/2024 PCP: Lucy Quick Room#: B2-255/B2-255 Giancarlo Patel is a 68 y.o. female who presents with Sphenoid sinusitis, unspecified chronicity Interval History: No overnight issues. Lying in bed , appears weak, remains on 4 L nasal cannula. Reached out to ID service, awaiting urine culture , compliant with antibiotics denies chest pain, sob, abdominal pain, nausea, vomiting, diarrhea, constipation, fevers, or chills. Adult diet Regular; 4 carb choices (60 gm/meal) 24HR INTAKE/OUTPUT: Intake/Output Summary (Last 24 hours) at 02/26/2024 1238 Last data filed at 02/26/2024 0800 Gross per 24 hour Intake 660 ml Output -- Net 660 ml LABS: CBC: Recent Labs 02/24/2421902/25/2422402/26/24 0210 WBC 8.3 6.5 7.5 RBC 3.03* 2.88* 2.88* HGB 8.6* 8.1* 8.2* HCT 27.7* 26.5* 26.7* MCV 91.4 92.0 92.7 RDW 15.1* 14.8 14.7 PLT 196 210 244 BMP: Recent Labs 02/24/2421902/25/2422402/26/24 0209 NA 135 135 136 K 3.4* 4.0 4.2 CL 102 106 107 CO2 30 28 30 BUN 33* 28* 23* CREATININE 1.42* 1.25* 1.23* GLUCOSE 105* 149* 113* CALCIUM 8.5 8.3* 8.5 ANIONGAP 3 1* 0* LIVER PROFILE: Recent Labs 02/24/2421902/25/2422402/26/24 0209 AST 27 18 18 ALT 24 20 19 BILITOT 0.3 0.2 0.2 ALKPHOS 66 63 75 PROT 5.2* 4.7* 4.9* PT/INR: No results for input(s): PROTIME, INR in the last 72 hours. CARDIAC ENZYMES: No results for input(s): TROPONINI in the last 72 hours. Procalcitonin: No results found for: PROCAL Objective: Vitals: BP 152/74 (BP Location: Right arm, Patient Position: Sitting) Pulse 81 Temp 36.8 C (98.2 F) (Temporal) Resp 17 Ht 5' 5 (1.651 m) Wt 249 lb 6.4 oz (113 kg) SpO2 100% BMI 41.50 kg/m Pulse Ox: SpO2 Av % Min: 100 % Max: 100 % Supplemental O2: O2 Flow Rate (L/min): 4 L/min 02/26/2024 General appearance: No apparent distress, appears stated age, HEENT: No JVD eyes: No scleral icterus Oral: Tongue is semi-moist Cardiovascular: S1/S2 heard, RRR Respiratory: Diminished breath sounds bilaterally with mild wheeze at the bases Abdomen: Soft, obese, non-tender, non-distended bowel sounds positive Musculoskeletal: No obvious deformities seen, ankle edema Skin: No visible rashes or lesions. Medications: aspirin, 81 mg, Oral, Daily atorvastatin, 40 mg, Oral, Daily cyanocobalamin, 1,000 mcg, Oral, Daily enoxaparin, 40 mg, SubCUTAneous, Daily ertapenem, 1,000 mg, IntraVENous, q24h famotidine, 40 mg, Oral, Daily insulin glargine, 50 Units, SubCUTAneous, BID insulin lispro, 0-12 Units, SubCUTAneous, TID WC And insulin lispro, 0-12 Units, SubCUTAneous, Nightly isosorbide mononitrate ER, 30 mg, Oral, Daily ketoconazole, , Topical, BID methenamine hippurate, 1 g, Oral, BID metoprolol succinate XL, 25 mg, Oral, Daily potassium chloride CR, 10 mEq, Oral, Daily ranolazine, 1,000 mg, Oral, BID senna-docusate sodium, 1 tablet, Oral, BID venlafaxine XR, 75 mg, Oral, Daily Assessment Acute metabolic encephalopathy due to UTI, improving, geriatrics following Severe sepsis (fever, tachycardia, leukocytosis, lactic acidosis). Resolved, with IV antibiotics ESBL- E coli bacteremia due to UTI, will need 2 weeks of ertapenem per ID service, awaiting urine cx Pyuria with UTI. Sphenoid sinusitis Elevated troponin due to demand ischemia Chronic problems Stage II pressure ulcer left buttock-wound care Chronic resp failure. On 4 L of oxygen HFpEF Hypertension Obesity disorder. Poorly controlled DM. Plan Geriatrics consult reviewed, continue with Seroquel as needed Possible return to senior care facility, she refuses PT and OT Will possibly need PICC line once blood cultures or sterile, ID recommends 2 weeks of ertapenem -am labs, replace lytes prn -increase activity Diet Adult diet Regular; 4 carb choices (60 gm/meal) DVT Prophylaxis [x] Lovenox, [] Heparin, [] SCDs, [] Ambulation [] Already on Anticoagulation GI Prophylaxis [] PPI, [] H2 Ирина, [] Carafate, [] Diet/Tube Feeds Code Status Full Code Disposition Patient requires continued admission due to sepsis MDM [] Low, [] Moderate,[x] High Patient's risk as above Total time spent (which include face to face and non face to face encounters) : minutes Toxic drug monitoring/narrow therapeutic index drug monitoring : # Drug name : Ertapenem # Route administered : IV # Method of monitoring :daily labs Extended Emergency Contact Information Primary Emergency Contact: Alexandro Cote Mobile Relation: Daughter Preferred language: Mone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 Advance Directive: Full Code Discharge planning: TBD Ann Reed MD Division of Hospitalist Medicine [place]patient [place] Geriatric Medicine Inpatient Consult Service Admission Date: 02/21/2024 Assessment Principal Problem: Sphenoid sinusitis, unspecified chronicity Plan Metabolic encephalopathy --improving. No use of PRN Seroquel. --Etiology likely related to bacteremia/UTI, change of environment --Encourage PO intake, time up in chair, family visits, supervised ambulation, and sleep hygiene --If agitated, assess for and consider treating for pain --QTc= 448 --No antipsychotic unless patient is danger to self/others/treatment --continue PRN melatonin at HS --continue Seroquel 12.5mg BID PRN for agitation --Monitor for constipation/urinary retention - last BM 02/23 --Possible medication contributions: -avoid hydroxyzine if possible as may worsen cognition due to anticholinergic effects Bipolar disorder -per patient's daughter has been under reasonable control, does not routinely have hallucinations Depression -continue Effexor Functional impairment/bedbound/mohamud dependent -plan to return to facility, likely LTC -patient refused PT/OT Borderline B12 -start B12 PO daily Follow-up: will follow with you Subjective Chief Complaint: fatigue, not sleeping Geriatrics consulted for Delirium HPI- The patient is new to me but seen by the Geriatric Inpatient Consult team. 68 year old with PMH of CHF, COPD, DM who presented to the hospital on 02/21/24 with complaints of change in mental status. She resides at [facility]. Family reported has had several hospitalizations with similar symptoms particularly when associated UTI and bloodstream infection. Medical record shows several ED visits for change in mental status and hallucinations over past 6-9 months. History of bipolar disorder that has been under control. Interval History: Remains on general medical/surgical floor . -patient denies pain. Reports she feels tired. States she gets woken up during the night. States she tried therapy at facility and didn't work. -Nursing reports patient has flat affect. No hallucinations reported. Review of Systems Constitutional: Positive for fatigue. Negative for fever. Respiratory: Negative for cough and shortness of breath. Gastrointestinal: Negative for abdominal pain, constipation, diarrhea and nausea. Genitourinary: Negative for difficulty urinating. Neurological: Positive for weakness. Negative for dizziness. Psychiatric/Behavioral: Positive for sleep disturbance. Objective BP 140/67 (BP Location: Right arm, Patient Position: Lying) Pulse 82 Temp 36.2 C (97.2 F) (Temporal) Resp 18 Ht 5' 5 (1.651 m) Wt 249 lb 6.4 oz (113 kg) SpO2 100% BMI 41.50 kg/m Intake/Output Summary (Last 24 hours) at 02/25/2024 1648 Last data filed at 02/25/2024 0912 Gross per 24 hour Intake 200 ml Output -- Net 200 ml Wt Readings from Last 3 Encounters: 02/25/24 249 lb 6.4 oz (113 kg) 10/19/21 279 lb (127 kg) 10/18/21 279 lb (127 kg) Current Facility-Administered Medications: acetaminophen (Tylenol) tablet 650 mg, 650 mg, Oral, q6h PRN OR acetaminophen (Tylenol) suppository 650 mg, 650 mg, Rectal, q6h PRN, Shmuel Trevino MD aspirin EC tablet 81 mg, 81 mg, Oral, Daily, Rob Lai MD, 81 mg at 02/25/24910 atorvastatin (Lipitor) tablet 40 mg, 40 mg, Oral, Daily, Rob Lai MD, 40 mg at 02/25/24910 bisacodyl (Dulcolax) EC tablet 5 mg, 5 mg, Oral, Daily PRN, Rob Lai MD dextrose 5 % infusion, 100 mL/hr, IntraVENous, PRN, Shmuel Trevino MD dextrose 50 % solution 12.5 g, 12.5 g, IntraVENous, PRN, Shmuel Trevino MD enoxaparin (Lovenox) syringe 40 mg, 40 mg, SubCUTAneous, Daily, Shmuel Trevino MD, 40 mg at 02/25/24911 ertapenem (INVanz) 1,000 mg in sodium chloride 0.9 % 50 mL IVPB Mini-Bag Plus, 1,000 mg, IntraVENous, q24h, Clare Del Cid MD, Stopped at 02/25/24941 famotidine (Pepcid) tablet 40 mg, 40 mg, Oral, Daily, Rob Lai MD, 40 mg at 02/25/24910 glucagon (human recombinant) injection 1 mg, 1 mg, IntraMUSCular, PRN, Shmuel Trevino MD glucose oral gel 15 g, 15 g, Oral, PRN, Shmuel Trevino MD insulin glargine (Lantus) injection 50 Units, 50 Units, SubCUTAneous, BID, Shmuel Trevino MD, 50 Units at 02/25/2412 Insulin Lispro (Humalog) injection 0-12 Units, 0-12 Units, SubCUTAneous, TID WC, 2 Units at 02/24/24 1733 AND Insulin Lispro (Humalog) injection 0-12 Units, 0-12 Units, SubCUTAneous, Nightly, Shmuel Trevino MD, 4 Units at 02/24/242020 ipratropium-albuterol (Duo-Neb) 0.5-2.5 mg/3 mL nebulizer solution 3 mL, 3 mL, Nebulization, q4h PRN, Shmuel Trevino MD isosorbide mononitrate ER (Imdur) 24 hr tablet 30 mg, 30 mg, Oral, Daily, Rob Lai MD, 30 mg at 02/25/24910 ketoconazole (NIZOral) 2 % cream, , Topical, BID, Manisha Tao, HAM DOCTOR [employer], Given at 02/25/24912 methenamine hippurate (Hiprex) tablet 1 g, 1 g, Oral, BID, Rob Lai MD, 1 g at 02/25/24912 metoprolol succinate XL (Toprol-XL) 24 hr tablet 25 mg, 25 mg, Oral, Daily, Rob Lai MD, 25 mg at 02/25/24910 naloxone (Narcan) injection 0.4 mg, 0.4 mg, IntraVENous, q5 min PRN, Shmuel Trevino MD oxyCODONE-acetaminophen (Percocet) 5-325 MG per tablet 1 tablet, 1 tablet, Oral, q6h PRN, Rob Lai MD, 1 tablet at 02/25/24 1221 polyethylene glycol (PEG) 3350 (Miralax) packet 17 g, 17 g, Oral, Daily PRN, Shmuel Trevino MD potassium chloride CR (Klor-Con M10) ER tablet 10 mEq, 10 mEq, Oral, Daily, Blanche Castillo MD, 10 mEq at 02/25/24910 promethazine (Phenergan) tablet 12.5 mg, 12.5 mg, Oral, q6h PRN OR promethazine (Phenergan) injection 12.5 mg, 12.5 mg, IntraMUSCular, q6h PRN, 12.5 mg at 02/22/24 0416 OR promethazine (Phenergan) suppository 12.5 mg, 12.5 mg, Rectal, q6h PRN, Rob Lai MD QUEtiapine (SEROquel) tablet 12.5 mg, 12.5 mg, Oral, BID PRN, Shmuel Trevino MD ranolazine (Ranexa) 12 hr tablet 1,000 mg, 1,000 mg, Oral, BID, Rob Lai MD, 1,000 mg at 02/25/24 0911 senna-docusate sodium (Senokot-S) 8.6-50 MG tablet 1 tablet, 1 tablet, Oral, BID, Shmuel Trevino MD, 1 tablet at 02/25/24 0911 venlafaxine XR (Effexor XR) 24 hr capsule 75 mg, 75 mg, Oral, Daily, Rob Lai MD, 75 mg at 02/25/24 0911 Physical Exam Constitutional: General: She is not in acute distress. HENT: Mouth/Throat: Mouth: Mucous membranes are moist. Cardiovascular: Rate and Rhythm: Normal rate and regular rhythm. Pulmonary: Effort: Pulmonary effort is normal. Breath sounds: Normal breath sounds. No wheezing or rhonchi. Abdominal: General: Bowel sounds are normal. Palpations: Abdomen is soft. Tenderness: There is no abdominal tenderness. Musculoskeletal: Right lower leg: Edema present. Left lower leg: Edema present. Comments: Trace edema bilaterally Neurological: Mental Status: She is alert. Psychiatric: Attention and Perception: Attention normal. Mood and Affect: Affect is flat. Labs and Imaging: Recent Results (from the past 24 hour(s)) POCT glucose meter Collection Time: 02/24/24 7:55 PM Result Value Ref Range Glucose 204 (H) 70 - 100 mg/dL CBC auto differential Collection Time: 02/25/24 2:25 AM Result Value Ref Range Auto WBC 6.5 3.6 - 10.7 10*3/uL RBC 2.88 (L) 3.80 - 5.20 10*6/uL Hemoglobin 8.1 (L) 11.7 - 16.0 g/dL Hematocrit 26.5 (L) 35.0 - 47.0 % MCV 92.0 77.0 - 99.0 fL MCH 28.1 26.0 - 34.0 pg MCHC 30.6 30.5 - 36.0 % RDW 14.8 11.5 - 15.0 % Platelets 210 140 - 440 10*3/uL MPV 8.6 (L) 9.0 - 12.7 fL nRBC 0.0 0.0 - 2.0 /100 WBCs Neutrophils Relative 51.4 38.0 - 82.0 % Lymphocytes Relative 30.8 15.0 - 45.0 % Monocytes Relative 10.0 5.0 - 13.0 % Eosinophils Relative 2.8 0.0 - 6.0 % Basophils Relative 0.5 0.0 - 2.0 % Immature Grans % 4.5 (H) 0.0 - 2.0 % Neutrophils Absolute 3.3 1.8 - 7.5 10*3/uL Lymphocytes Absolute 2.0 1.0 - 4.3 10*3/uL Monocytes Absolute 0.7 0.0 - 0.9 10*3/uL Eosinophils Absolute 0.2 0.0 - 0.5 10*3/uL Basophils Absolute 0.0 0.0 - 0.2 10*3/uL Immature Grans Absolute 0.3 (H) <0.1 10*3/uL Comprehensive metabolic panel Collection Time: 02/25/24 2:25 AM Result Value Ref Range SODIUM 135 135 - 145 mmol/L POTASSIUM 4.0 3.5 - 5.1 mmol/L CHLORIDE 106 98 - 107 mmol/L CARBON DIOXIDE 28 22 - 30 mmol/L ANION GAP 1 (L) 3 - 13 mmol/L UREA NITROGEN 28 (H) 7 - 17 mg/dL CREATININE 1.25 (H) 0.52 - 1.04 mg/dL GLUCOSE 149 (H) 70 - 100 mg/dL CALCIUM 8.3 (L) 8.4 - 10.4 mg/dL AST (SGOT) 18 15 - 46 U/L ALT 20 0 - 34 U/L ALKALINE PHOSPHATASE 63 38 - 126 U/L ALBUMIN 2.3 (L) 3.5 - 5.0 g/dL BILIRUBIN, TOTAL 0.2 0.2 - 1.3 mg/dL TOTAL PROTEIN 4.7 (L) 6.3 - 8.2 g/dL eGFR 47.6 (L) >60.0 mL/min/1.73m*2 POCT glucose meter Collection Time: 02/25/24 6:26 AM Result Value Ref Range Glucose 105 (H) 70 - 100 mg/dL POCT glucose meter Collection Time: 02/25/24 11:26 AM Result Value Ref Range Glucose 117 (H) 70 - 100 mg/dL Complete Urinalysis Collection Time: 02/25/24 3:36 PM Result Value Ref Range Color, Urine Yellow Lt. Yellow Clarity, Urine Cloudy (A) Clear pH, Urine 6.0 5.0 - 8.0 pH Leukocytes, Urine 500 (A) Negative Ha/uL Nitrite, Urine Negative Negative Protein, Urine 30 (A) Negative mg/dL Glucose, Urine Normal Normal (<70) mg/dL Bilirubin, Urine Negative Negative mg/dL Ketones, Urine Negative Negative mg/dL Urobilinogen, Urine Normal Normal (0-1) mg/dL Blood, Urine Negative Negative mg/dL RBC, Urine 0-2 0 - 2 /HPF WBC, Urine 11-25 (A) 0 - 5 /HPF Squamous Epithelial, Urine 11-25 (A) 3 - 5 /HPF Non-Squamous Epithalial Cells, Urine 0-2 (A) Negative /HPF Bacteria, Urine Few (A) Negative /HPF Mucus, Urine Few Negative /LPF Amorphous Crystals, Urine Few (A) Negative /HPF SPECIFIC GRAVITY OF URINE (NUMERIC) 1.018 1.005 - 1.030 POCT glucose meter Collection Time: 02/25/24 4:40 PM Result Value Ref Range Glucose 161 (H) 70 - 100 mg/dL Lab Results Component Value Date TSH 1.267 02/22/2024 Lab Results Component Value Date [id number] 294 02/22/2024 No results found for: VITD25 Reviewed: allergies, previous encounters, social history, imaging, active problem lists, medications, and labs Images from the original note were not included. [id number]: Please page hi ([phone]) for patient care issues. [phone]: Please page [facility] Hospitalist for any issues. Subjective: Admit Date: 02/21/2024 PCP: Lucy Quick Room#: [id number] Giancarlo Patel is a 68 y.o. female who presents with Sphenoid sinusitis, unspecified chronicity Interval History: No overnight issues. Lying in bed , appears weak, remains on 4 L nasal cannula. Complains of sinus congestion , awaiting blood cultures to be negative to get a PICC line denies chest pain, sob, abdominal pain, nausea, vomiting, diarrhea, constipation, fevers, or chills. Adult diet Regular; 4 carb choices (60 gm/meal) 24HR INTAKE/OUTPUT: Intake/Output Summary (Last 24 hours) at 02/25/2024 1257 Last data filed at 02/25/2024 0912 Gross per 24 hour Intake 200 ml Output -- Net 200 ml LABS: CBC: Recent Labs 02/23/2432102/24/2421902/25/24224 WBC 7.5 8.3 6.5 RBC 3.08* 3.03* 2.88* HGB 8.7* 8.6* 8.1* HCT 28.1* 27.7* 26.5* MCV 91.2 91.4 92.0 RDW 15.6* 15.1* 14.8 PLT 182 196 210 BMP: Recent Labs 02/23/2432102/24/2421902/25/24224 NA 135 135 135 K 3.7 3.4* 4.0 CL 101 102 106 CO2 28 30 28 BUN 35* 33* 28* CREATININE 1.62* 1.42* 1.25* GLUCOSE 111* 105* 149* CALCIUM 8.1* 8.5 8.3* ANIONGAP 6 3 1* LIVER PROFILE: Recent Labs 02/23/2432102/24/2421902/25/24224 AST 23 27 18 ALT 20 24 20 BILITOT 0.4 0.3 0.2 ALKPHOS 70 66 63 PROT 5.1* 5.2* 4.7* PT/INR: No results for input(s): PROTIME, INR in the last 72 hours. CARDIAC ENZYMES: No results for input(s): TROPONINI in the last 72 hours. Procalcitonin: No results found for: PROCAL Objective: Vitals: BP 140/67 (BP Location: Right arm, Patient Position: Lying) Pulse 82 Temp 36.2 C (97.2 F) (Temporal) Resp 18 Ht 5' 5 (1.651 m) Wt 249 lb 6.4 oz (113 kg) SpO2 100% BMI 41.50 kg/m Pulse Ox: SpO2 Av % Min: 100 % Max: 100 % Supplemental O2: O2 Flow Rate (L/min): 4 L/min 02/25/2024 General appearance: No apparent distress, appears stated age, HEENT: No JVD eyes: No scleral icterus Oral: Tongue is semi-moist Cardiovascular: S1/S2 heard, RRR Respiratory: Diminished breath sounds bilaterally with mild wheeze at the bases Abdomen: Soft, obese, non-tender, non-distended bowel sounds positive Musculoskeletal: No obvious deformities seen, ankle edema Skin: No visible rashes or lesions. Medications: aspirin, 81 mg, Oral, Daily atorvastatin, 40 mg, Oral, Daily enoxaparin, 40 mg, SubCUTAneous, Daily ertapenem, 1,000 mg, IntraVENous, q24h famotidine, 40 mg, Oral, Daily insulin glargine, 50 Units, SubCUTAneous, BID insulin lispro, 0-12 Units, SubCUTAneous, TID WC And insulin lispro, 0-12 Units, SubCUTAneous, Nightly isosorbide mononitrate ER, 30 mg, Oral, Daily ketoconazole, , Topical, BID methenamine hippurate, 1 g, Oral, BID metoprolol succinate XL, 25 mg, Oral, Daily potassium chloride CR, 10 mEq, Oral, Daily ranolazine, 1,000 mg, Oral, BID senna-docusate sodium, 1 tablet, Oral, BID venlafaxine XR, 75 mg, Oral, Daily Assessment Acute metabolic encephalopathy due to UTI, improving, geriatrics following Severe sepsis (fever, tachycardia, leukocytosis, lactic acidosis). Resolved, with IV antibiotics ESBL- E coli bacteremia due to UTI, will need 2 weeks of ertapenem per ID service Pyuria with UTI. Sphenoid sinusitis Elevated troponin due to demand ischemia Chronic problems Stage II pressure ulcer left buttock-wound care Chronic resp failure. On 4 L of oxygen HFpEF Hypertension Obesity disorder. Poorly controlled DM. Plan Geriatrics consult reviewed, continue with Seroquel Possible return to senior care facility, she refuses PT and OT Will possibly need PICC line once blood cultures or sterile, ID recommends 2 weeks of ertapenem -am labs, replace lytes prn -increase activity Diet Adult diet Regular; 4 carb choices (60 gm/meal) DVT Prophylaxis [x] Lovenox, [] Heparin, [] SCDs, [] Ambulation [] Already on Anticoagulation GI Prophylaxis [] PPI, [] H2 Риина, [] Carafate, [] Diet/Tube Feeds Code Status Full Code Disposition Patient requires continued admission due to sepsis MDM [] Low, [] Moderate,[x] High Patient's risk as above Total time spent (which include face to face and non face to face encounters) : minutes Toxic drug monitoring/narrow therapeutic index drug monitoring : # Drug name : Ertapenem # Route administered : IV # Method of monitoring :daily labs Extended Emergency Contact Information Primary Emergency Contact: Alexandro Cote Mobile Relation: Daughter Preferred language: M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 Hospitalist Progress Note 02/24/2024 Subjective: Admit Date: 02/21/2024 PCP: Lucy Quick Room#: [id number] A BRIEF HOSPITAL COURSE: Kimberly is a 68-year-old female who was admitted on 02/20 from SNF for altered mental status and fever of 107 Fahrenheit. In the emergency she was tachycardic, hypoxic, with leukocytosis, elevated creatinine, lactic acidosis meeting septic criteria. She was found to have mucosal thickening in the paranasal sinuses and was started on ceftriaxone in the emergency department. During admission ID was consulted for severe sepsis with E. coli bacteremia. She will need a ertapenem for 2 weeks Interval History: Overnight vital signs stable, she remains on 4 L nasal cannula. Creatinine trending downwards to 1.42, potassium 3.4, and hemoglobin 8.6. Patient laying in bed, sleeping took some stimulation to arouse. Incontinent of urine and stool. Deneis any pain and discomfort. Difficult to obtain a review of symptoms, disorientated. No overnight issues. Case and plan discussed with patient and bedside nurse. All questions answered. Adult diet Regular; 4 carb choices (60 gm/meal) 24HR INTAKE/OUTPUT: Intake/Output Summary (Last 24 hours) at 02/24/2024 0912 Last data filed at 02/23/2024 1703 Gross per 24 hour Intake 300 ml Output 500 ml Net -200 ml Past Medical History: Past Medical History: Diagnosis Date CHF (congestive heart failure) ([facility]) COPD (chronic obstructive pulmonary disease) ([facility]) Diabetes mellitus ([facility]) LABS: CBC: Recent Labs 04/40602/23/2432102/24/24219 WBC 9.6 7.5 8.3 RBC 3.36* 3.08* 3.03* HGB 9.6* 8.7* 8.6* HCT 30.2* 28.1* 27.7* MCV 89.9 91.2 91.4 RDW 15.6* 15.6* 15.1* PLT 195 182 196 BMP: Recent Labs 02/22/2440602/23/2432102/24/24219 NA 132* 135 135 K 3.9 3.7 3.4* CL 99 101 102 CO2 29 28 30 BUN 32* 35* 33* CREATININE 1.17* 1.62* 1.42* GLUCOSE 142* 111* 105* CALCIUM 8.2* 8.1* 8.5 ANIONGAP 5 6 3 LIVER PROFILE: Recent Labs 02/22/2440602/23/2432102/24/24219 AST 21 23 27 ALT 18 20 24 BILITOT 0.6 0.4 0.3 ALKPHOS 75 70 66 PROT 5.3* 5.1* 5.2* PT/INR: Recent Labs 02/21/24 1124 PROTIME 10.5 INR 1.0 CARDIAC ENZYMES: Recent Labs 02/21/24 1124 02/21/24 1535 02/21/242024 TROPONINI 0.047* 0.049* 0.052* Procalcitonin: Lab Results Component Value Date PROCAL 0.41 (H) 02/22/2024 COVID-19 PCR: No results for input(s): COVID19 in the last 72 hours. Objective: Vitals: BP 154/68 (BP Location: Right arm, Patient Position: Lying) Pulse 79 Temp 36.9 C (98.5 F) (Temporal) Resp 16 Ht 5' 5 (1.651 m) Wt 250 lb 1.6 oz (113 kg) SpO2 100% BMI 41.62 kg/m Pulse Ox: SpO2 Av.8 % Min: 99 % Max: 100 % Supplemental O2: O2 Flow Rate (L/min): 4 L/min Physical Exam Vitals and nursing note reviewed. Constitutional: General: She is sleeping. Appearance: She is obese. She is ill-appearing. HENT: Mouth/Throat: Pharynx: Oropharynx is clear. Eyes: Conjunctiva/sclera: Conjunctivae normal. Cardiovascular: Rate and Rhythm: Normal rate. Heart sounds: No murmur heard. Pulmonary: Effort: Pulmonary effort is normal. No respiratory distress. Breath sounds: Rales present. No wheezing. Abdominal: General: Bowel sounds are normal. There is no distension. Palpations: There is no mass. Tenderness: There is no abdominal tenderness. Musculoskeletal: Right lower leg: Edema present. Left lower leg: Edema present. Skin: General: Skin is warm. Capillary Refill: Capillary refill takes less than 2 seconds. Coloration: Skin is pale. Neurological: Mental Status: She is disoriented. Medications: Scheduled PRN aspirin, 81 mg, Oral, Daily atorvastatin, 40 mg, Oral, Daily enoxaparin, 40 mg, SubCUTAneous, Daily ertapenem, 1,000 mg, IntraVENous, q24h famotidine, 40 mg, Oral, Daily insulin glargine, 50 Units, SubCUTAneous, BID insulin lispro, 0-12 Units, SubCUTAneous, TID WC And insulin lispro, 0-12 Units, SubCUTAneous, Nightly isosorbide mononitrate ER, 30 mg, Oral, Daily ketoconazole, , Topical, BID methenamine hippurate, 1 g, Oral, BID metoprolol succinate XL, 25 mg, Oral, Daily ranolazine, 1,000 mg, Oral, BID senna-docusate sodium, 1 tablet, Oral, BID venlafaxine XR, 75 mg, Oral, Daily PRN medications: acetaminophen OR acetaminophen, bisacodyl, dextrose, dextrose, glucagon (rDNA), glucose, ipratropium-albuterol, naloxone, oxyCODONE-acetaminophen, polyethylene glycol (PEG) 3350, promethazine OR promethazine OR promethazine, QUEtiapine Continuous Assessment Data: (CAT1) Reviewed 3 or more notes from different specialty or health system (each=1). (CAT1) Reviewed 3 or more labs/studies ordered by another provider not previously counted (each=1, panels count as 1). (LOW: 2x CAT1 or independent historian MOD: 3x CAT1 or 1x CAT3 EXTENSIVE: 3x CAT1 and 1x CAT3) Acute, acute on chronic, unstable/uncontrolled chronic problems/diagnoses: Acute metabolic encephalopathy due to UTI Geriatrics following Avoid anti-psychotics Melatonin prn at HS Avoid hydroxyzine Severe sepsis (fever, tachycardia, leukocytosis, lactic acidosis). ESBL- E coli bacteremia due to UTI Antibiotics: Ceftriaxone Ertapenem 02/21 Pyuria with UTI. Sphenoid sinusitis Elevated troponin due to demand ischemia Stage II pressure ulcer left buttock Chronic resp failure. HFpEF Hypertension Obesity disorder. Poorly controlled DM. 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 - am labs, replace lytes prn - PT/OT/CM/SW - delirium precautions: increase activity, schedule melatonin at bedtime, limit nighttime disturbances, and avoid anticholinergic meds, benzos, etc - DVT prophylaxis: enoxaparin and encourage ambulation Complexity: Chronic illness with severe exacerbation, progression, or side effect of tx (HIGH). Risk: Admission to hospital-level care was considered or occurred (HIGH). Advance Directive: Full Code Anticipated Discharge - Date - - Location - SNF - Pending the following - clinical improvement and final dispo Total time spent (which include face to face and non face to face encounters) : 55 minutes Toxic drug monitoring/narrow therapeutic index drug monitoring : # Drug name : SS insulin and lovenox # Route administered : subcutaneous and SQ # Method of monitoring : ac/hs blood glucose/daily BMP and daily CBC Extended Emergency Contact Information Primary Emergency Contact: Alexandro Cote Mobile Relation: Daughter Preferred language: 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 Blanche Castillo MD Division of Hospitalist Medicine Acute care [facility] Images from the original note were not included. [facility] - Infectious Diseases Attending Progress Note Subjective: Lethargic and confused Objective: Vitals: Patient Vitals for the past 24 hrs: BP Temp Temp src Pulse Resp SpO2 Weight 02/24/24 0721 154/68 36.9 C (98.5 F) Temporal 79 16 100 % -- 02/24/24 0518 -- -- -- -- -- -- 113 kg (250 lb 1.6 oz) 02/23/24 1931 139/78 36.1 C (96.9 F) Temporal 85 18 100 % -- 02/23/24 1536 122/61 (!) 35.7 C (96.3 F) Temporal 85 18 100 % -- 02/23/24 1106 155/80 36.2 C (97.2 F) Temporal 56 18 99 % -- 02/23/24 0815 152/80 36.7 C (98.1 F) Temporal 89 18 100 % -- Physical Exam Vitals and nursing note reviewed. Labs: Recent Labs 02/22/2440602/23/2432102/24/24219 NA 132* 135 135 K 3.9 3.7 3.4* CL 99 101 102 CO2 29 28 30 BUN 32* 35* 33* CREATININE 1.17* 1.62* 1.42* GLUCOSE 142* 111* 105* CALCIUM 8.2* 8.1* 8.5 PROT 5.3* 5.1* 5.2* BILITOT 0.6 0.4 0.3 ALKPHOS 75 70 66 AST 21 23 27 ALT 18 20 24 PROCAL 0.41* -- -- Recent Labs 02/21/24 1124 02/22/247 02/23/2432102/24/24 0220 WBC 15.2* 9.6 7.5 8.3 HGB 10.0* 9.6* 8.7* 8.6* HCT 31.3* 30.2* 28.1* 27.7* PLT 201 195 182 196 LYMPHOPCT 6.3* 9.5* -- 22.7 MONOPCT 8.3 8.8 -- 12.4 BASOPCT 0.2 0.2 -- 0.2 NEUTROABS 12.5* 7.5 -- 4.9 Micro: 02/21/24 -Neg Covid/Flu/RSV Combo panel 02/21/24 Urine culture+ E coli >10.6 02/21/24 BC x 1 with E coli (ESBL+) 02/23/24 BC - NGSF Lines: PIV Radiography/Echo/Other: 02/21/24 CT angio: Opacified right sphenoid sinus and mucosal thickening in the left sphenoid sinus, posterior ethmoid air cell, and right maxillary sinus. Retained fluid partially opacifies the mastoid air cells bilaterally. No acute osseous findings. Impression: 1. No PE identified. PE cannot be evaluated beyond the pulmonary artery proximal segmental level due to study limitations above. 2. No acute pulmonary abnormalities. 3. Cardiomegaly and three-vessel coronary artery calcification. Electronically Signed By: Frankie Patel MD 02/21/2024 1:56 PM EDT 02/21/24- Brain CT: Impression: 1. No acute intracranial abnormalities. 2. Mucosal thickening in the paranasal sinuses and fluid in the right sphenoid sinus. Please correlate for sinusitis. Electronically Signed By: Frankie Patel MD 02/21/2024 Antimicrobials, Start/End Dates: Ceftr 02/20- Erta 02/21- Impression & Plan: Severe sepsis secondary to ESBL+ E coli bacteremia with UTI- improving on Ertapenem with resolved leukocytosis and tachycardia, w/plans for 2 total weeks of therapy- pansinusitis involving opacified R sphenoid, ethmoids, R maxillary and mastoid sinuses COPD with chronic resp compromise DM2- in poor control currently secondary to sepsis but HbA1c of 7 on admission With CKD 3 and chronic anemia BMI 42 6. Confusion with history of hallucinations and bipolar disease Plan for PICC line if GFR improves with 12 more days of Ertapenem - no po options due to MDR I spent total time 15 minutes caring for this patient today,including >51% in reviewing labs, records from another facility, interviewing and examining the patient and documenting, writing orders (prescriptions/meds), and instructing the patient on self care. Images from the original note were not included. Hospitalist Progress Note 02/23/2024 Subjective: Admit Date: 02/21/2024 PCP: Lucy Quick Room#: B2-255/B2-255 A Interval History: Doing better. She remains on oxygen. She is weak. No pain. Tolerating diet. No cp, sob, cough, n/v, f/c. Case and plan discussed with patient and ROYCE Langston, at bedside and separately. All questions answered. Adult diet Regular; 4 carb choices (60 gm/meal) 24HR INTAKE/OUTPUT: Intake/Output Summary (Last 24 hours) at 02/23/2024 1151 Last data filed at 02/23/2024 0841 Gross per 24 hour Intake 440 ml Output 575 ml Net -135 ml Past Medical History: Past Medical History: Diagnosis Date CHF (congestive heart failure) ([facility]) COPD (chronic obstructive pulmonary disease) ([facility]) Diabetes mellitus ([facility]) LABS: CBC: Recent Labs 02/21/24 11202/22/24 04002/23/24 032 WBC 15.2* 9.6 7.5 RBC 3.51* 3.36* 3.08* HGB 10.0* 9.6* 8.7* HCT 31.3* 30.2* 28.1* MCV 89.2 89.9 91.2 RDW 15.8* 15.6* 15.6* PLT 201 195 182 BMP: Recent Labs 02/21/24 11202/22/24 0407 02/23/24 032 NA 134* 132* 135 K 4.3 3.9 3.7 CL 98 99 101 CO2 32* 29 28 BUN 44* 32* 35* CREATININE 1.29* 1.17* 1.62* GLUCOSE 148* 142* 111* CALCIUM 8.7 8.2* 8.1* ANIONGAP 4 5 6 LIVER PROFILE: Recent Labs 02/21/24 11202/22/24 0407 02/23/24 0322 AST 21 21 23 ALT 19 18 20 BILITOT 0.6 0.6 0.4 ALKPHOS 78 75 70 PROT 5.7* 5.3* 5.1* PT/INR: Recent Labs 02/21/241123 PROTIME 10.5 INR 1.0 CARDIAC ENZYMES: Recent Labs 02/21/24 1124 02/21/24 1535 02/21/242024 TROPONINI 0.047* 0.049* 0.052* Procalcitonin: Lab Results Component Value Date PROCAL 0.41 (H) 02/22/2024 COVID-19 PCR: No results for input(s): COVID19 in the last 72 hours. Objective: Vitals: BP 155/80 Pulse 56 Temp 36.2 C (97.2 F) (Temporal) Resp 18 Ht 5' 5 (1.651 m) Wt 246 lb 4.8 oz (112 kg) SpO2 99% BMI 40.99 kg/m Pulse Ox: SpO2 Av.6 % Min: 98 % Max: 100 % Supplemental O2: O2 Flow Rate (L/min): 4 L/min Physical Exam Vitals and nursing note reviewed. Constitutional: General: She is not in acute distress. Appearance: She is obese. HENT: Head: Normocephalic. Mouth/Throat: Mouth: Mucous membranes are dry. Eyes: Extraocular Movements: Extraocular movements intact. Cardiovascular: Rate and Rhythm: Regular rhythm. Bradycardia present. Pulses: Normal pulses. Heart sounds: Murmur heard. Pulmonary: Effort: Pulmonary effort is normal. Abdominal: General: Bowel sounds are normal. There is no distension. Palpations: Abdomen is soft. Tenderness: There is no abdominal tenderness. There is no rebound. Musculoskeletal: Cervical back: Normal range of motion. Right lower leg: No edema. Left lower leg: No edema. Skin: General: Skin is warm. Capillary Refill: Capillary refill takes less than 2 seconds. Neurological: General: No focal deficit present. Mental Status: She is alert and oriented to person, place, and time. Mental status is at baseline. Psychiatric: Mood and Affect: Mood normal. Medications: Scheduled PRN aspirin, 81 mg, Oral, Daily atorvastatin, 40 mg, Oral, Daily enoxaparin, 40 mg, SubCUTAneous, Daily ertapenem, 1,000 mg, IntraVENous, q24h famotidine, 40 mg, Oral, Daily insulin glargine, 55 Units, SubCUTAneous, BID insulin lispro, 0-12 Units, SubCUTAneous, TID WC And insulin lispro, 0-12 Units, SubCUTAneous, Nightly isosorbide mononitrate ER, 30 mg, Oral, Daily ketoconazole, , Topical, BID methenamine hippurate, 1 g, Oral, BID metoprolol succinate XL, 25 mg, Oral, Daily ranolazine, 1,000 mg, Oral, BID senna-docusate sodium, 1 tablet, Oral, Daily venlafaxine XR, 75 mg, Oral, Daily PRN medications: acetaminophen OR acetaminophen, bisacodyl, dextrose, dextrose, glucagon (rDNA), glucose, ipratropium-albuterol, naloxone, oxyCODONE-acetaminophen, polyethylene glycol (PEG) 3350, promethazine OR promethazine OR promethazine, QUEtiapine Continuous Assessment Altered mental status E coli bacteremia-ESBL Likely UTI Sphenoid sinusitis DM2 with hypoglycemia Leukocytosis Demand ischemia Chronic respiratory failure HTN Anemia HFpEF COPD Obesity Plan Continue IV antibiotics, wean oxygen, continue aerosols, follow up cx's, decrease insulin, follow up BG, prn glucose, may need Endocrinology evaluation, ID and Geriatrics following, 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 - am labs, replace lytes prn - PT/OT/CM/SW - delirium precautions: increase activity - DVT prophylaxis: enoxaparin and encourage ambulation Advance Directive: Full Code Anticipated Discharge - Date - 02/24-02/25 - Location - Skilled Facility - Pending the following - clinical improvement, finalization of antibiotic recs and disposition finalization Total time spent (which include face to face and non face to face encounters) : 48 minutes Toxic drug monitoring/narrow therapeutic index drug monitoring : # Drug name : SS insulin and lovenox # Route administered : subcutaneous and SQ # Method of monitoring : ac/hs blood glucose/daily BMP and daily CBC Extended Emergency Contact Information Primary Emergency Contact: Alexandro Cote Mobile Relation: Daughter Preferred language: Mone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 SHMUEL TREVINO MD Division of Hospitalist Medicine [facility] Images from the original note were not included. Speech-Language Pathology SPEECH LANGUAGE PATHOLOGY [facility] Bedside Swallow Evaluation Patient Name: Kimberly Patel Evaluation Date: 02/23/2024 Date of : 1955 Admission Date: 02/21/2024 10:26 AM Age: 68 y.o. Room/Bed: [facility] A IMPRESSION: No s/s oropharyngeal dysphagia. No overt clinical s/s pulmonary compromise with PO. RECOMMENDATION: Recommend Regular solids and Thin liquids and meds as tolerated and the following precautions: - Small bites/sips - Alternate solid and liquids No skilled acute MAMMOGRAPHY TECHNICIAN indicated at this time. Please reconsult should changes occur. Subjective Patient resting in bed - requires max encouragement to participate in clinical bedside swallow evaluation. Minimal verbal output during evaluation. Dysphagia History: No history of MAMMOGRAPHY TECHNICIAN services in EMR with retrospective chart review Baseline Diet: Per usp information - pt current intakes regular diet with thin liquid at baseline Current Diet: Dietary Orders (From admission, onward) Start Ordered 02/21/242140 Adult diet Regular; 4 carb choices (60 gm/meal) Diet effective now Question Answer Comment Diet type Regular Carbohydrate restriction: 4 carb choices (60 gm/meal) 02/21/242139 Tube Feeding: no Tracheostomy: no Recent Chest Xray/CT of Chest: CTA chest angiogram w and/or wo IV contrast 02/21/2024 Impression 1. No PE identified. PE cannot be evaluated beyond the pulmonary artery proximal segmental level due to study limitations above. 2. No acute pulmonary abnormalities. 3. Cardiomegaly and three-vessel coronary artery calcification. Report Dictated on Electronically Signed By: Frankie Patel MD Electronically Signed Date/Time: 02/21/2024 1:56 PM EDT Oxygen: Oxygen Therapy: Supplemental oxygen O2 Delivery Method: Nasal cannula O2 Flow Rate (L/min): 4 L/min Past Medical History: Past Medical History: Diagnosis Date CHF (congestive heart failure) ([facility]) COPD (chronic obstructive pulmonary disease) ([facility]) Diabetes mellitus ([facility]) Past Surgical History: Past Surgical History: Procedure Laterality Date CHOLECYSTECTOMY COLONOSCOPY throat biopsy Admission Diagnosis: Patient Active Problem List Diagnosis Date Noted Bipolar disorder, most recent episode depressed ([facility]) ([facility]) 02/22/2024 Sphenoid sinusitis, unspecified chronicity 02/21/2024 Bullous pemphigoid 11/17/2022 Acute on chronic diastolic congestive heart failure ([facility]) 08/22/2022 Physical debility 10/12/2021 Other hyperlipidemia 10/12/2021 CAD (coronary artery disease) 10/12/2021 Primary hypertension 10/12/2021 Neuropathy 10/12/2021 Bacteremia 10/12/2021 Acute kidney injury superimposed on CKD ([facility]) ([facility]) 10/12/2021 Type 2 diabetes mellitus with diabetic polyneuropathy, with long-term current use of insulin ([facility]) 10/12/2021 History of Present Illness: Kimberly Patel is a 68 y.o. female who presents to the emergency department with fever or report temperature was 107 F, she had change in mental status of decreased interaction. At baseline she is wheelchair-bound. She denies any pain currently. At baseline she wears 4 L nasal cannula. Patient Complaint: Pt fatigued and wanting to continue to get rest Pain: Pt denies any current pain. PPE Worn: surgical mask, gown, gloves Objective Bedside swallow eval completed. Swallowing Examination PO Trials - thin liquid, (straw) - regular solids Oral Phase Pt with adequate oral receipt of PO trials. No anterior spillage. Mastication appeared complete, organized, and timely. Oral transit time appears WFL. No oral residue. Pharyngeal Phase Hyolaryngeal excursion clinically appears adequate and timely per palpation. 1-2 swallows palpated per bolus, likely indicative of adequate pharyngeal clearance. No overt clinical s/s airway penetration as evidenced by no cough, no throat clear, and no change in vocal quality. Education Education Given: swallowing strategies, diet recommendations Given To: patient Response: Pt with minimal interaction with therapist during evaluation - pt seems to understand information provided. Goals Patient Stated Goal: To go back to sleep Encounter Problems Encounter Problems (Active) MAMMOGRAPHY TECHNICIAN [facility] Participate in Bedside swallow evaluation Start: 02/22/24 Expected End: 02/25/24 Therapy Time MAMMOGRAPHY TECHNICIAN Individual Minutes Time In: 0745 Time Out: 0801 Minutes: 16 Nuno Eastman MA, [facility]3]-MAMMOGRAPHY TECHNICIAN Placed patient on P500 Specialty Bed Nutrition Assessment Type and Reason for Visit: Positive Nutrition Screen, Initial Nutrition Recommendations/Plan: Continue Regular- 4 carbohydrate choices/60 g CHO per meal diet Encourage patient to participate in room service and order well balanced meals Please record % meals consumed in flowsheet for most accurate nutrient intake assessment. Obtain updated standing vs actual bed scale weight as able for most accurate anthropometric data RDN to continue to monitor weekly: fluid accumulation, weight, skin integrity, trends in lab values, tolerance of diet and ability to meet nutrition needs, improvement in clinical status, discharge planning Malnutrition Assessment: Malnutrition Status: Insufficient data (refused assessment and NFPE) Context: Acute Illness Findings of the 6 clinical characteristics of malnutrition: Energy Intake: Unable to assess Weight Loss: Unable to assess Body Fat Loss: Unable to assess Muscle Mass Loss: Unable to assess Fluid Accumulation: Mild Extremities Hand Fretted Instrument Maker Strength: Not Performed Nutrition Assessment: 68 year old woman with PMHx: CAD, HLD, HTN, neuropathy, DMII(A1C=7.0% on 02/22/24). She presents to [facility] from SNF with AMS and reported 107*F fever. Evaluated in ED with noted labs on admit: BNP(1320), troponin(0.047->0.049->0.052), Ddimer(0.91), WBC(15.2), Hgb(10). Hct(31.3). Na+(134), BUN(44), Creatinine(1.29). +Initial blood cultures for E.coli and ESBL. Imaging on admit without acute process or PE. Planning to discharge back to SNF, then mental status continued to worsen, prompting admit for further workup. ID consulted and following for: ESBL- E coli bacteremia due to UTI. Planning to continue ertapenem for two weeks. Geriatrics consulted and following to support patient. Refused to work with MAMMOGRAPHY TECHNICIAN, at time of attempted assessment, noted maybe one bite taken from breakfast tray, otherwise tray untouched. Patient declined to participate in RDN assessment, stated she wanted to be left alone and sleep . Bed scale weight obtained: 106.7 kg or 235.2#. Estimated Daily Nutrient Needs: Energy Requirements Based On: Kcal/kg Weight Used for Energy Requirements: [place] Weight for Energy Calculation (kg): 57 kg Total Energy Requirements (kcals/day): 1425- 1710 (25-30 kcal/kg IBW) Weight Used for Protein Requirements: Weight in Kg Used for Protein Requirements: Estimated Total Protein (g/day): 57-68 (1.0-1.2 g protein/kg IBW) Estimated Daily Total Fluid (ml/day): per MD Nutrition Related Findings: Edward score=13. +1 BLE edema noted. Meds: aspirin, lipitor, PPI, rocephin, insulin, toprol. Labs reviewed. Refused MAMMOGRAPHY TECHNICIAN this morning. Wound Type: Pressure Injury, Wound Consult Pending Current Nutrition Therapies: Adult diet Regular; 4 carb choices (60 gm/meal) Current Oral Intake Average Meal Intake: Refusing to eat Average Supplements Intake: Refusing to take Anthropometric Measures: Height: 165.1 cm (5' 5) Current Body Weight: 107 kg (235 lb 3.7 oz) Weight Source: Bed Scale Admission Body Weight: 133 kg (294 lb) (stated) Usual Body Weight: 114 kg (251 lb) (07/09/2023) % Weight Change (Calculated): -6.3 [place] Body Weight (lbs) (Calculated): 125 lbs [place] Body Weight (Kg) (Calculated): 57 kg % [place] Body Weight (Calculated): 188.2 % BMI (kg/m2) (Calculated): 39.1 Weight Adjustment For: No Adjustment BMI Categories: Obese Class 2 (BMI 35.0 -39.9) Nutrition Diagnosis: Increased nutrient needs related to acute injury/trauma as evidenced by (ESBL- E coli bacteremia due to UTI.) Altered nutrition-related lab values related to endocrine dysfuntion as evidenced by lab values Nutrition Interventions: Nutrition Education/Counseling: Education not indicated Coordination of Nutrition Care: Continue to monitor while inpatient, Speech Therapy Plan of Care discussed with: patient Goals: Goals: PO intake 50% or greater, prior to discharge Nutrition Monitoring and Evaluation: Behavioral-Environmental Outcomes: None Identified Food/Nutrient Intake Outcomes: Food and Nutrient Intake Physical Signs/Symptoms Outcomes: Chewing or Swallowing, Biochemical Data, GI Status, Meal Time Behavior, Weight, Skin, Fluid Status or Edema, Nutrition Focused Physical Findings, Nausea or Vomiting Discharge Planning: Too soon to determine Odalys Godinez RDN, LDN, Contact: *[phone] Images from the original note were not included. OCCUPATIONAL THERAPY [facility] Name/MRN: Kimberly Patel ([id number]) Date: 02/22/2024 Chart reviewed. Spoke with [facility], she reports pt from SNF, is bed bound at baseline, [place], and is total care. Will discharge from caseload, pt dependent Zee Gresham OT Images from the original note were not included. [phone]: Please page me ([phone]) for patient care issues. [phone]: Please page [facility] Hospitalist for any issues. Subjective: Admit Date: 02/21/2024 PCP: Lucy Quick Room#: B2-268/B2-268 A Kimberly Patel is a 68 y.o. female who presents with Sphenoid sinusitis, unspecified chronicity Interval History: No overnight issues. Denies chest pain, sob, abdominal pain, nausea, vomiting, diarrhea, constipation, fevers, or chills. Adult diet Regular; 4 carb choices (60 gm/meal) 24HR INTAKE/OUTPUT: No intake or output data in the 24 hours ending 02/22/24 1109 LABS: CBC: Recent Labs 02/21/24 1124 02/22/24 0407 WBC 15.2* 9.6 RBC 3.51* 3.36* HGB 10.0* 9.6* HCT 31.3* 30.2* MCV 89.2 89.9 RDW 15.8* 15.6* PLT 201 195 BMP: Recent Labs 02/21/24 1124 02/22/24 0407 NA 134* 132* K 4.3 3.9 CL 98 99 CO2 32* 29 BUN 44* 32* CREATININE 1.29* 1.17* GLUCOSE 148* 142* CALCIUM 8.7 8.2* ANIONGAP 4 5 LIVER PROFILE: Recent Labs 02/21/24 1124 02/22/24 0407 AST 21 21 ALT 19 18 BILITOT 0.6 0.6 ALKPHOS 78 75 PROT 5.7* 5.3* PT/INR: Recent Labs 02/21/241123 PROTIME 10.5 INR 1.0 CARDIAC ENZYMES: Recent Labs 02/21/24 1124 02/21/24 1535 02/21/242024 TROPONINI 0.047* 0.049* 0.052* Procalcitonin: Lab Results Component Value Date PROCAL 0.41 (H) 02/22/2024 Objective: Vitals: BP 160/79 (BP Location: Left arm, Patient Position: Sitting) Pulse 105 Temp 36.8 C (98.2 F) (Temporal) Resp 17 Ht 5' 5 (1.651 m) Wt 293 lb 3.4 oz (133 kg) SpO2 100% BMI 48.79 kg/m Pulse Ox: SpO2 Av.4 % Min: 96 % Max: 100 % Supplemental O2: O2 Flow Rate (L/min): 4 L/min 02/22/2024 General appearance: No apparent distress, appears stated age, AAOX Oral: Tongue is semi-moist Cardiovascular: S1/S2 heard, RRR Respiratory: Clear to auscultation bilaterally Abdomen: Soft, non-tender, non-distended bowel sounds positive Musculoskeletal: No obvious deformities seen Skin: Medications: aspirin, 81 mg, Oral, Daily atorvastatin, 40 mg, Oral, Daily enoxaparin, 40 mg, SubCUTAneous, Daily ertapenem, 1,000 mg, IntraVENous, q24h famotidine, 40 mg, Oral, Daily insulin glargine, 55 Units, SubCUTAneous, BID insulin lispro, 0-12 Units, SubCUTAneous, TID WC And insulin lispro, 0-12 Units, SubCUTAneous, Nightly isosorbide mononitrate ER, 30 mg, Oral, Daily methenamine hippurate, 1 g, Oral, BID metoprolol succinate XL, 25 mg, Oral, Daily ranolazine, 1,000 mg, Oral, BID senna-docusate sodium, 1 tablet, Oral, Daily venlafaxine XR, 75 mg, Oral, Daily Assessment Acute metabolic encephalopathy due to UTI. E. coli UTI. Positive blood cultures with E. coli. Sphenoid sinusitis. Elevated troponin due to demand ischemia Stage II pressure ulcer left buttock Chronic problems CHF with preserved EF. COPD Chronic respiratory failure Hypertension DM Morbid obesity Plan Change IV Rocephin to IV ertapenem. Added urine culture. Consult ID. Check ultrasound kidney to rule out obstruction per stewardship recommendations. Repeat blood cultures in AM. Monitor blood sugars, blood pressures. Geriatrics consulted PT, OT -am labs, replace lytes prn -increase activity Diet Adult diet Regular; 4 carb choices (60 gm/meal) DVT Prophylaxis [x] Lovenox, [] Heparin, [] SCDs, [] Ambulation [] Already on Anticoagulation GI Prophylaxis [] PPI, [x] H2 Ирина, [] Carafate, [] Diet/Tube Feeds Code Status Full Code MDM [] Low, [] Moderate,[x] High Patient's risk as above Anticipated Discharge - Date -02/24 - Location - Skilled Facility - Pending the following -clinical improvement, clearance of bacteremia, software developer consultant recommendations, workup Total time spent (which include face to face and non face to face encounters) : 52 minutes Toxic drug monitoring/narrow therapeutic index drug monitoring : # Drug name : # Route administered : # Method of monitoring : Extended Emergency Contact Information Primary Emergency Contact: Alexandro Cote Mobile Relation: Daughter Preferred language: M[employer]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 Advance Directive: Full Code Discharge planning: TBD CLARE DEL CID MD Division of Hospitalist Medicine [facility] [place] Images from the original note were not included. PHYSICAL THERAPY [facility] Name/MRN: Kimberly Patel ([id number]) Date: 02/22/2024 Chart reviewed. Spoke with [facility], she reports pt from SNF, is bed bound at baseline, [place], and is total care. Will discharge from caseload, pt dependent Moe Mcelroy PT Images from the original note were not included. OCCUPATIONAL THERAPY [facility] Name/MRN: Kimberly Patel ([id number]) Date: 02/22/2024 Chart reviewed. Introduced self and role, pt declines therapy adamantly. Will re-attempt as schedule permits Zee Gresham OT Images from the original note were not included. PHYSICAL THERAPY [facility] Name/MRN: Kimberly Patel ([id number]) Date: 02/22/2024 Chart reviewed. Introduced self and role, pt declines therapy adamantly. Will re-attempt as schedule permits Moe Mcelroy PT Speech-Language Pathology Pt's chart reviewed. Admitted with AMS and fever. Pt on CON, CHO, NSP Regular thin diet per MAR from nursing facility. Order acknowledged for Bedside swallowing evaluation. Pt deferred at this time. I will eat when I'm ready. I'm tired and going to sleep. ST will continue to follow as appropriate. documented in this encounter [facility] 02-27-2024 Note Care Management Prog ress Note Medical record reviewed & report received from RN in AM rounds.Pt admitted due to sepsis. ID following recommending IV antibiotic through 03/08. Opat form in chart Geriatrics, ID and wound care following. [facility] can accommodate Invanz infusions. 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 PICC placed today. Awaiting attending rounds for decision on discharge today. Discharge Milestones and Delays Expected Date/Time: 02/27/[address] discharge order Complete med reconciliation Case mgmt discharge readiness Clinical Stability Diagnsotic Workup Expected Discharge History Expected Date/Time Set By Reviewed At 02/27/2024 GEORGI Davis 02/26/2024 10:10 AM 02/24 Need opat and confirmation from [facility] of [place] they take take IV Invanze. Patient is a intermediate designer bed hold. 02/26/2024 Sejal Thomas RN 02/25/2024 4:02 PM 02/24/2024 Janie Finch MD 02/21/2024 9:39 PM 02/24/2024 Janie Finch MD 02/21/2024 6:09 PM Length of Stay (Days): 6 GMLOS: 5.1 [facility] 02-26-2024 Note [facility] - Infectious Diseases Attending Progress Note Subjective: Follow up for Sepsis, ESBL- E coli bacteremia. She was alert, laying on bed; has chronic weakness, inability to walk, and use of 4L O2; denied fever, chill, chest pain, sob, abdominal pain, nausea, vomiting, diarrhea, or constipation; appeared debilitated but comfortable. She was admitted on 02/21/24 from SNF due to mental status change and fever of 107F ; in ED on presentation, she was tachycardic (P 109), hypoxic (Pox 89%); labs showed leukocytosis (15.2k), elevated creatinine (1.29), lactic acidosis (2.0), pyuria (>100 wbc), CT head showed Mucosal thickening in the paranasal sinuses and fluid in the right sphenoid sinus, ceftriaxone was given in ED. She was examined; notes, labs, imaging were reviewed and treatment plan was discussed. Objective: Vitals: Patient Vitals for the past 24 hrs: BP Temp Temp src Pulse Resp SpO2 02/26/24 0857 152/74 36.8 ?C (98.2 ?F) Temporal 81 17 100 % 02/25/24 2054 128/84 36.4 ?C (97.5 ?F) Temporal 86 16 100 % Physical Exam Vitals and nursing note reviewed. Constitutional: General: She is in no acute distress. Appearance: She is obese. She is ill-appearing but non-toxic. Eyes: Extraocular Movements: Extraocular movements intact. Conjunctiva/sclera: Conjunctivae normal. Pupils: Pupils are equal, round, and reactive to light. Cardiovascular: Rate and Rhythm: Regular rhythm. Tachycardia decreased. Heart sounds: Normal heart sounds. Pulmonary: Effort: Pulmonary effort is normal. Breath sounds: Normal breath sounds. Musculoskeletal: Cervical back: No rigidity. Right foot: Swelling present. Left foot: Swelling present. Neurological: Mental Status: She is alert and oriented to person, place, and time. Cranial Nerves: Cranial nerves 2-12 are intact. Sensory: Sensation is intact. Motor: No tremor. Coordination: Lqfoaf-Dqoe-Hknfds Test normal. Psychiatric: Attention and Perception: Perception normal. Speech: Speech is ok. Labs: Recent Labs 02/24/24 0220 02/25/24 0225 02/26/24 0209 NA 135 135 136 K 3.4* 4.0 4.2 CL 102 106 107 CO2 30 28 30 BUN 33* 28* 23* CREATININE 1.42* 1.25* 1.23* GLUCOSE 105* 149* 113* CALCIUM 8.5 8.3* 8.5 PROT 5.2* 4.7* 4.9* BILITOT 0.3 0.2 0.2 ALKPHOS 66 63 75 AST 27 18 18 ALT 24 20 19 Recent Labs 02/24/24 0220 02/25/24 0225 02/26/24 0210 WBC 8.3 6.5 7.5 HGB 8.6* 8.1* 8.2* HCT 27.7* 26.5* 26.7* PLT 196 210 244 LYMPHOPCT 22.7 30.8 26 MONOPCT 12.4 10.0 10 BASOPCT 0.2 0.5 -- NEUTROABS 4.9 3.3 -- Micro: No results for input(s): COVID19 in the last 72 hours. 02/25/2024 1536 02/25/2024 1540 Urine culture [[id number]] Urine, Clean Catch In process Component Value No component results 02/23/2024 0439 02/26/2024 1101 Blood culture Site #2 - Assess for effectiveness of treatment [[id number]] Blood, Venous Preliminary result Component Value Blood Culture No growth at 72 hours P 02/23/2024 0438 02/26/2024 1101 Blood culture Site #1 - Assess for effectiveness of treatment [[id number]] Blood, Venous Preliminary result Component Value Blood Culture No growth at 72 hours P 02/21/2024 1759 02/25/2024 0824 Urine culture [[id number]] (Abnormal) Urine, Clean Catch Final result Component Value Urine Culture Normal urogenital krys present >100,000 CFU/mL Escherichia coli Abnormal This phenotype is suggestive of an ESBL-producing organism. Treatment with beta-lactam antibiotics other than carbapenems may not be effective. >100,000 CFU/mL Enterococcus faecalis Abnormal 02/21/2024 1135 02/21/2024 1628 COVID-19, Flu A/B, and RSV Combo [[id number]] Swab from Nasopharynx Final result Component Value SARS-CoV-2 Not Detected Respiratory Syncytial Virus Not Detected Influenza A Not Detected Influenza B Not Detected 02/21/2024 1124 02/24/2024 0948 Blood culture Site #1 - Suspected Infection [[id number]] (Abnormal) Blood, Venous Final result Component Value Blood Culture Escherichia coli Panic This phenotype is suggestive of an ESBL-producing organism. Treatment with beta-lactam antibiotics other than carbapenems may not be effective. This is an edited result. Previous organism was Gram-negative bacilli on 02/22/2024 at 0622 EDT. 02/21/2024 1124 02/22/2024 0622 Blood Culture Identification - Anaerobic [[id number]] (Abnormal) Blood, Venous Final result Component Value Escherichia coli Detected Abnormal CTX-M (ESBL gene) Detected Abnormal Lines: PIV Radiography/Echo/Other: US renal complete [[id number]] Collected: 02/22/241800 Order Status: Completed Updated: 02/22/241806 Narrative: Patient Name: KIMBERLY PATEL : 1955 Exam Date/Time: 02/22/2024 17:23 Procedure: US RENAL COMPLETE Ordering Provider: DEL CID DEEPTHI Reason For Exam: r/o obstruction Examination: Renal ultrasound Clinic (more content not included)... [facility] 02-25-2024 Note Referral placed to kris kimbrough back to [facility] via [facility] per [facility] request. Await review and response regarding ability to accept. [facility] notified. [facility] 02-25-2024 Note Care Management Prog ress Note Chart reviewed. Patient continues on for treatment of confusion and altered mental status. Patient has severe sepsis and awaiting improvement in GFR before discharge. Regular diet. 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 Geriatrics, ID and wound care following. Patient from [facility] intermediate designer. Sent [email or web address] chat message today to facility needing confirmation if they can accept IV Invanz -awaiting final response. Patient is total care and bed bound at facility. Will need picc line once blood cultures are final. Uses [facility]oham[facility] lift at facility. DC plan: return to [facility], when medically ready. LEGAL RECORDS MANAGER tasked to send remaining updates to the facility. Messaged ID SETH [email or web address]. Signs requesting opat when ready. Discharge Milestones and Delays Expected Date/Time: 02/26/[address] discharge order Complete med reconciliation Case mgmt discharge readiness Clinical Stability Diagnsotic Workup Expected Discharge History Expected Date/Time Set By Reviewed At 02/26/2024 Sejal Thomas RN 02/25/2024 4:02 PM 02/24 Need opat and confirmation from [facility] they take take IV Invanze. Patient is a [place] [facility] bed [facility]. 02/24/2024 Janie Finch MD 02/21/2024 9:39 PM 02/24/2024 Janie Finch MD 02/21/2024 6:09 PM Length of Stay (Days): 4 GMLOS: 5.1 [facility] 02-24-2024 Note Hospitalist Progress Note 02/24/2024 Subjective: Admit Date: 02/21/2024 PCP: Lucy Quick Room#: B2-255/[id number] A BRIEF HOSPITAL COURSE: Kimberly is a 68-year-old female who was admitted on 02/20 from SNF for altered mental status and fever of 107 Fahrenheit. In the emergency she was tachycardic, hypoxic, with leukocytosis, elevated creatinine, lactic acidosis meeting septic criteria. She was found to have mucosal thickening in the paranasal sinuses and was started on ceftriaxone in the emergency department. During admission ID was consulted for severe sepsis with E. coli bacteremia. She will need a ertapenem for 2 weeks Interval History: Overnight vital signs stable, she remains on 4 L nasal cannula. Creatinine trending downwards to 1.42, potassium 3.4, and hemoglobin 8.6. Patient laying in bed, sleeping took some stimulation to arouse. Incontinent of urine and stool. Deneis any pain and discomfort. Difficult to obtain a review of symptoms, disorientated. No overnight issues. Case and plan discussed with patient and bedside nurse. All questions answered. Adult diet Regular; 4 carb choices (60 gm/meal) 24HR INTAKE/OUTPUT: Intake/Output Summary (Last 24 hours) at 02/24/2024 09 Last data filed at 02/23/2024 1703 Gross per 24 hour Intake 300 ml Output 500 ml Net -200 ml Past Medical History: Past Medical History: Diagnosis Date CHF (congestive heart failure) ([facility]) COPD (chronic obstructive pulmonary disease) (CMS/HCC) Diabetes mellitus ([facility]) LABS: CBC: Recent Labs 02/22/2440602/23/2432102/24/24219 WBC 9.6 7.5 8.3 RBC 3.36* 3.08* 3.03* HGB 9.6* 8.7* 8.6* HCT 30.2* 28.1* 27.7* MCV 89.9 91.2 91.4 RDW 15.6* 15.6* 15.1* PLT 195 182 196 BMP: Recent Labs 02/22/2440602/23/2432102/24/24219 NA 132* 135 135 K 3.9 3.7 3.4* CL 99 101 102 CO2 29 28 30 BUN 32* 35* 33* CREATININE 1.17* 1.62* 1.42* GLUCOSE 142* 111* 105* CALCIUM 8.2* 8.1* 8.5 ANIONGAP 5 6 3 LIVER PROFILE: Recent Labs 02/22/2440602/23/2432102/24/24219 AST 21 23 27 ALT 18 20 24 BILITOT 0.6 0.4 0.3 ALKPHOS 75 70 66 PROT 5.3* 5.1* 5.2* PT/INR: Recent Labs 02/21/241123 PROTIME 10.5 INR 1.0 CARDIAC ENZYMES: Recent Labs 02/21/24 1124 02/21/24 1535 02/21/242024 TROPONINI 0.047* 0.049* 0.052* Procalcitonin: Lab Results Component Value Date PROCAL 0.41 (H) 02/22/2024 COVID-19 PCR: No results for input(s): COVID19 in the last 72 hours. Objective: Vitals: BP 154/68 (BP Location: Right arm, Patient Position: Lying) Pulse 79 Temp 36.9 ?C (98.5 ?F) (Temporal) Resp 16 Ht 5' 5 (1.651 m) Wt 250 lb 1.6 oz (113 kg) SpO2 100% BMI 41.62 kg/m? Pulse Ox: SpO2 Av.8 % Min: 99 % Max: 100 % Supplemental O2: O2 Flow Rate (L/min): 4 L/min Physical Exam Vitals and nursing note reviewed. Constitutional: General: She is sleeping. Appearance: She is obese. She is ill-appearing. HENT: Mouth/Throat: Pharynx: Oropharynx is clear. Eyes: Conjunctiva/sclera: Conjunctivae normal. Cardiovascular: Rate and Rhythm: Normal rate. Heart sounds: No murmur heard. Pulmonary: Effort: Pulmonary effort is normal. No respiratory distress. Breath sounds: Rales present. No wheezing. Abdominal: General: Bowel sounds are normal. There is no distension. Palpations: There is no mass. Tenderness: There is no abdominal tenderness. Musculoskeletal: Right lower leg: Edema present. Left lower leg: Edema present. Skin: General: Skin is warm. Capillary Refill: Capillary refill takes less than 2 seconds. Coloration: Skin is pale. Neurological: Mental Status: She is disoriented. Medications: Scheduled PRN aspirin, 81 mg, Oral, Daily atorvastatin, 40 mg, Oral, Daily enoxaparin, 40 mg, SubCUTAneous, Daily ertapenem, 1,000 mg, IntraVENous, q24h famotidine, 40 mg, Oral, Daily insulin glargine, 50 Units, SubCUTAneous, BID insulin lispro, 0-12 Units, SubCUTAneous, TID WC And insulin lispro, 0-12 Units, SubCUTAneous, Nightly isosorbide mononitrate ER, 30 mg, Oral, Daily ketoconazole, , Topical, BID methenamine hippurate, 1 g, Oral, BID metoprolol succinate XL, 25 mg, Oral, Daily ranolazine, 1,000 mg, Oral, BID senna-docusate sodium, 1 tablet, Oral, BID venlafaxine XR, 75 mg, Oral, Daily PRN medications: acetaminophen OR acetaminophen, bisacodyl, dextrose, dextrose, glucagon (rDNA), glucose, ipratropium-albuterol, naloxone, oxyCODONE-acetaminophen, polyethylene glycol (PEG) 3350, promethazine OR promethazine OR promethazine, QUEtiapine Continuous Assessment Data: (CAT1) Reviewed 3 or more notes from different specialty or health system (each=1). (CAT1) Reviewed 3 or more labs/studies ordered by another provider not previously counted (each=1, panels count as 1). (LOW: 2x CAT1 or independent historian MOD: 3x CAT1 or 1x CAT3 EXTENSIVE: 3x CAT1 and 1x CAT3) (more content not included)... [facility] 02-24-2024 Note [facility] - Infectious Diseases Attending Progress Note Subjective: Lethargic and confused Objective: Vitals: Patient Vitals for the past 24 hrs: BP Temp Temp src Pulse Resp SpO2 Weight 02/24/24 0721 154/68 36.9 ?C (98.5 ?F) Temporal 79 16 100 % -- 02/24/24 0518 -- -- -- -- -- -- 113 kg (250 lb 1.6 oz) 02/23/24 1931 139/78 36.1 ?C (96.9 ?F) Temporal 85 18 100 % -- 02/23/24 1536 122/61 (!) 35.7 ?C (96.3 ?F) Temporal 85 18 100 % -- 02/23/24 1106 155/80 36.2 ?C (97.2 ?F) Temporal 56 18 99 % -- 02/23/24 0815 152/80 36.7 ?C (98.1 ?F) Temporal 89 18 100 % -- Physical Exam Vitals and nursing note reviewed. Labs: Recent Labs 02/22/2440602/23/2432102/24/24 022 NA 132* 135 135 K 3.9 3.7 3.4* CL 99 101 102 CO2 29 28 30 BUN 32* 35* 33* CREATININE 1.17* 1.62* 1.42* GLUCOSE 142* 111* 105* CALCIUM 8.2* 8.1* 8.5 PROT 5.3* 5.1* 5.2* BILITOT 0.6 0.4 0.3 ALKPHOS 75 70 66 AST 21 23 27 ALT 18 20 24 PROCAL 0.41* -- -- Recent Labs 02/21/24 1124 02/22/2440602/23/24 03202/24/24 0220 WBC 15.2* 9.6 7.5 8.3 HGB 10.0* 9.6* 8.7* 8.6* HCT 31.3* 30.2* 28.1* 27.7* PLT 201 195 182 196 LYMPHOPCT 6.3* 9.5* -- 22.7 MONOPCT 8.3 8.8 -- 12.4 BASOPCT 0.2 0.2 -- 0.2 NEUTROABS 12.5* 7.5 -- 4.9 Micro: 02/21/24 -Neg Covid/Flu/RSV Combo panel 02/21/24 Urine culture+ E coli >10.6 02/21/24 BC x 1 with E coli (ESBL+) 02/23/24 BC - NGSF Lines: PIV Radiography/Echo/Other: 02/21/24 CT angio: Opacified right sphenoid sinus and mucosal thickening in the left sphenoid sinus, posterior ethmoid air cell, and right maxillary sinus. Retained fluid partially opacifies the mastoid air cells bilaterally. No acute osseous findings. Impression: 1. No PE identified. PE cannot be evaluated beyond the pulmonary artery proximal segmental level due to study limitations above. 2. No acute pulmonary abnormalities. 3. Cardiomegaly and three-vessel coronary artery calcification. Electronically Signed By: Frankie Patel MD 02/21/2024 1:56 PM EDT 02/21/24- Brain CT: Impression: 1. No acute intracranial abnormalities. 2. Mucosal thickening in the paranasal sinuses and fluid in the right sphenoid sinus. Please correlate for sinusitis. Electronically Signed By: Frankie Patel MD 02/21/2024 Antimicrobials, Start/End Dates: Ceftr Erta 02/21- Impression & Plan: Severe sepsis secondary to ESBL+ E coli bacteremia with UTI- improving on Ertapenem with resolved leukocytosis and tachycardia, w/plans for 2 total weeks of therapy- pansinusitis involving opacified R sphenoid, ethmoids, R maxillary and mastoid sinuses COPD with chronic resp compromise DM2- in poor control currently secondary to sepsis but HbA1c of 7 on admission With CKD 3 and chronic anemia BMI 42 6. Confusion with history of hallucinations and bipolar disease Plan for PICC line if GFR improves with 12 more days of Ertapenem - no po options due to MDR I spent total time 15 minutes caring for this patient today,including >51% in reviewing labs, records from another facility, interviewing and examining the patient and documenting, writing orders (prescriptions/meds), and instructing the patient on self care. [facility] 04-27-2024 Note Hospitalist Progress Note 02/23/2024 Subjective: Admit Date: 02/21/2024 PCP: Lucy Quick Room#: B2-255/[id number] A Interval History: Doing better. She remains on oxygen. She is weak. No pain. Tolerating diet. No cp, sob, cough, n/v, f/c. Case and plan discussed with patient and Kian RN, at bedside and separately. All questions answered. Adult diet Regular; 4 carb choices (60 gm/meal) 24HR INTAKE/OUTPUT: Intake/Output Summary (Last 24 hours) at 02/23/2024 1151 Last data filed at 02/23/2024 0841 Gross per 24 hour Intake 440 ml Output 575 ml Net -135 ml Past Medical History: Past Medical History: Diagnosis Date CHF (congestive heart failure) ([facility]) COPD (chronic obstructive pulmonary disease) ([facility]) Diabetes mellitus ([facility]) LABS: CBC: Recent Labs 02/21/24 1124 02/22/24 0407 02/23/24 0322 WBC 15.2* 9.6 7.5 RBC 3.51* 3.36* 3.08* HGB 10.0* 9.6* 8.7* HCT 31.3* 30.2* 28.1* MCV 89.2 89.9 91.2 RDW 15.8* 15.6* 15.6* PLT 201 195 182 BMP: Recent Labs 02/21/24 11202/22/24 0407 02/23/24 0322 NA 134* 132* 135 K 4.3 3.9 3.7 CL 98 99 101 CO2 32* 29 28 BUN 44* 32* 35* CREATININE 1.29* 1.17* 1.62* GLUCOSE 148* 142* 111* CALCIUM 8.7 8.2* 8.1* ANIONGAP 4 5 6 LIVER PROFILE: Recent Labs 02/21/24 1124 02/22/24 0407 02/23/24 0322 AST 21 21 23 ALT 19 18 20 BILITOT 0.6 0.6 0.4 ALKPHOS 78 75 70 PROT 5.7* 5.3* 5.1* PT/INR: Recent Labs 02/21/24 1124 PROTIME 10.5 INR 1.0 CARDIAC ENZYMES: Recent Labs 02/21/24 1124 02/21/24 1535 02/21/242024 TROPONINI 0.047* 0.049* 0.052* Procalcitonin: Lab Results Component Value Date PROCAL 0.41 (H) 02/22/2024 COVID-19 PCR: No results for input(s): COVID19 in the last 72 hours. Objective: Vitals: BP 155/80 Pulse 56 Temp 36.2 ?C (97.2 ?F) (Temporal) Resp 18 Ht 5' 5 (1.651 m) Wt 246 lb 4.8 oz (112 kg) SpO2 99% BMI 40.99 kg/m? Pulse Ox: SpO2 Av.6 % Min: 98 % Max: 100 % Supplemental O2: O2 Flow Rate (L/min): 4 L/min Physical Exam Vitals and nursing note reviewed. Constitutional: General: She is not in acute distress. Appearance: She is obese. HENT: Head: Normocephalic. Mouth/Throat: Mouth: Mucous membranes are dry. Eyes: Extraocular Movements: Extraocular movements intact. Cardiovascular: Rate and Rhythm: Regular rhythm. Bradycardia present. Pulses: Normal pulses. Heart sounds: Murmur heard. Pulmonary: Effort: Pulmonary effort is normal. Abdominal: General: Bowel sounds are normal. There is no distension. Palpations: Abdomen is soft. Tenderness: There is no abdominal tenderness. There is no rebound. Musculoskeletal: Cervical back: Normal range of motion. Right lower leg: No edema. Left lower leg: No edema. Skin: General: Skin is warm. Capillary Refill: Capillary refill takes less than 2 seconds. Neurological: General: No focal deficit present. Mental Status: She is alert and oriented to person, place, and time. Mental status is at baseline. Psychiatric: Mood and Affect: Mood normal. Medications: Scheduled PRN aspirin, 81 mg, Oral, Daily atorvastatin, 40 mg, Oral, Daily enoxaparin, 40 mg, SubCUTAneous, Daily ertapenem, 1,000 mg, IntraVENous, q24h famotidine, 40 mg, Oral, Daily insulin glargine, 55 Units, SubCUTAneous, BID insulin lispro, 0-12 Units, SubCUTAneous, TID WC And insulin lispro, 0-12 Units, SubCUTAneous, Nightly isosorbide mononitrate ER, 30 mg, Oral, Daily ketoconazole, , Topical, BID methenamine hippurate, 1 g, Oral, BID metoprolol succinate XL, 25 mg, Oral, Daily ranolazine, 1,000 mg, Oral, BID senna-docusate sodium, 1 tablet, Oral, Daily venlafaxine XR, 75 mg, Oral, Daily PRN medications: acetaminophen OR acetaminophen, bisacodyl, dextrose, dextrose, glucagon (rDNA), glucose, ipratropium-albuterol, naloxone, oxyCODONE-acetaminophen, polyethylene glycol (PEG) 3350, promethazine OR promethazine OR promethazine, QUEtiapine Continuous Assessment Altered mental status E coli bacteremia-ESBL Likely UTI Sphenoid sinusitis DM2 with hypoglycemia Leukocytosis Demand ischemia Chronic respiratory failure HTN Anemia HFpEF COPD Obesity Plan Continue IV antibiotics, wean oxygen, continue aerosols, follow up cx's, decrease insulin, follow up BG, prn glucose, may need Endocrinology evaluation, ID and Geriatrics following, 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 - am labs, replace lytes prn - PT/OT/CM/SW - delirium precautions: increase activity - DVT prophylaxis: enoxaparin and encourage ambulation Advance Directive: Full Code Anticipated Discharge - Date - 02/24-02/25 - Location - Skilled Facility - Pending the following - clinical improvement, finalization of antibiotic recs and disposition finalization Total time spent (which include face to face and non face to face encounters) : 48 minute (more content not included)... [facility] 02-22-2024 Consult note Associated Order (s): IP WOUND CARE NURSE CONSULT TO EVAL Images from the original note were not included. [facility] Wound Care CONSULT Note Kimberly Patel AGE: 68 y.o. GENDER: female : 1955 Subjective: HISTORY of PRESENT ILLNESS HPI Kimberly Patel is a 68 y.o. female with PMH of below presented with change in metal status and fever. Wound Check focused exam HPI: Patient presents for wound check. Patient has a moisture wound which is located on the bilateral buttock . Current symptoms: drainage: minimal, serosanguinous and pink wound bed superficial. . Symptoms began present on admission 1day ago. Pain is rated 2/10. Interventions to date: barrier ointment with zinc. Incont. Care. Becky wick for urinary incont. Brief for moisture management. Low air loss mattress at [facility] .patient denies being able to make independent body position changes. Does not have good appetite. No cough. Can not lay flat HOB has to be up more than 30 degrees. PAST MEDICAL HISTORY Active Ambulatory Problems Diagnosis Date Noted Physical debility 10/12/2021 Other hyperlipidemia 10/12/2021 CAD (coronary artery disease) 10/12/2021 Primary hypertension 10/12/2021 Neuropathy 10/12/2021 Bacteremia 10/12/2021 Acute kidney injury superimposed on CKD ([facility] ([facility]) 10/12/2021 Type 2 diabetes mellitus with diabetic polyneuropathy, with long-term current use of insulin ([facility]) 10/12/2021 Bullous pemphigoid 11/17/2022 Acute on chronic diastolic congestive heart failure ([facility]) 08/22/2022 Bipolar disorder, most recent episode depressed ([facility] ([facility]) 02/22/2024 Resolved Ambulatory Problems Diagnosis Date Noted No Resolved Ambulatory Problems Past Medical History: Diagnosis Date CHF (congestive heart failure) ([facility]) COPD (chronic obstructive pulmonary disease) ([facility]) Diabetes mellitus ([facility]) PAST SURGICAL HISTORY Past Surgical History: Procedure Laterality Date CHOLECYSTECTOMY COLONOSCOPY throat biopsy FAMILY HISTORY No family history on file. SOCIAL HISTORY Social History Tobacco Use Smoking status: Former Smokeless tobacco: Never ALLERGIES Allergies Allergen Reactions Dulaglutide Empagliflozin Hydromorphone Metformin Morphine Ondansetron Penicillins MEDICATIONS No current facility-administered medications on file prior to encounter. Current Outpatient Medications on File Prior to Encounter Medication Sig Dispense Refill acetaminophen (Tylenol) 325 MG tablet Take 650 mg by mouth every 6 hours as needed for mild pain (1-3) or fever. Acetylcysteine (N-Acetyl Cysteine) 600 MG capsule capsule Take 600 mg by mouth in the morning and 600 mg in the evening. albuterol (2.5 MG/3ML) 0.083% nebulizer solution Take 2.5 mg by nebulization 4 times daily as needed for wheezing or shortness of breath. albuterol 108 (90 Base) MCG/ACT inhaler Inhale 2 puffs every 4 hours as needed for wheezing. aspirin 81 MG EC tablet Take 81 mg by mouth daily. atorvastatin (Lipitor) 40 MG tablet Take 40 mg by mouth daily. bisacodyl (Dulcolax) 5 MG EC tablet Take 5 mg by mouth Daily as needed for constipation. Do not crush, chew, or split. bisacodyl (Fleet Bisacodyl) 10 MG/30ML enema Insert 10 mg into the rectum Daily as needed for constipation. budesonide-formoterol (Symbicort) 160-4.5 MCG/ACT inhaler Inhale 2 puffs in the morning and 2 puffs in the evening. Rinse mouth with water after use to reduce aftertaste and incidence of candidiasis. Do not swallow.. calcium carbonate (Tums) 500 MG chewable tablet Chew 500 mg 2 times daily. clobetasol (Temovate) 0.05 % cream Apply topically 2 times daily. doxycycline (Monodox) 100 MG capsule Take 100 mg by mouth 2 times daily. Take with at least 8 ounces (large glass) of water, do not lie down for 30 minutes after dupilumab (Dupixent) 300 MG/2ML injection Inject 300 mg under the skin every 14 (fourteen) days. ergocalciferol (Vitamin D-2) 1.25 MG (67467 UT) capsule Take 1.25 mg by mouth 1 (one) time per week. Every famotidine (Pepcid) 40 MG tablet Take 40 mg by mouth daily. furosemide (Lasix) 40 MG tablet Take 40 mg by mouth in the morning and 40 mg in the evening. guaiFENesin (Robitussin) 100 MG/5ML syrup Take 200 mg by mouth 3 times daily as needed for cough. hydrOXYzine HCl (Atarax) 25 MG tablet Take 25 mg by mouth every 8 hours as needed for itching. insulin glargine (Lantus) 100 UNIT/ML injection Inject 55 Units under the skin 2 times daily. Insulin Lispro (Humalog) 100 UNIT/ML solution injection Inject under the skin 3 times daily (with meals). isosorbide mononitrate ER (Imdur) 30 MG 24 hr tablet Take 30 mg by mouth daily. Do not crush or chew. linaGLIPtin (Tradjenta) 5 MG tablet Take 5 mg by mouth daily. methenamine hippurate (Hiprex) 1 g tablet Take 1 g by mouth 2 times daily. metoprolol succinate XL (Toprol-XL) 25 MG 24 hr tablet Take 25 mg by mouth daily. Do not crush or chew. oxyCODONE-acetaminophen (Percocet) 5-325 MG tablet Take 1 tablet by mouth every 6 hours as needed for severe pain (7-10). polyethylene glycol, PEG, 3350 (Miralax) 17 g packet Take 17 g by mouth Once. promethazine (Phenergan) 25 MG tablet Take 25 mg by mouth every 6 hours as needed for nausea or vomiting. ranolazine (Ranexa) 1000 MG 12 hr tablet Take 1,000 mg by mouth 2 times daily. Do not crush, chew, or split. senna-docusate sodium (Senokot-S) 8.6-50 MG tablet Take 1 tablet by mouth daily. venlafaxine XR (Effexor XR) 75 MG 24 hr capsule Take 75 mg by mouth daily. Do not crush or chew. white petrolatum gel Apply topically 2 times daily. REVIEW OF SYSTEMS Pertinent items are noted in HPI. Objective: BP 123/72 (BP Location: Right arm, Patient Position: Lying) Pulse 92 Temp 36.6 C (97.9 F) (Temporal) Resp 16 Ht 5' 5 (1.651 m) Wt 293 lb 3.4 oz (133 kg) SpO2 100% BMI 48.79 kg/m PHYSICAL EXAM Consitutional- {in no apparent distress, alert, and cooperative: Skin - bilateral moisture rash pink superficial , scant serosang drainage, 1cm x1cm x0.1cm surrounding skin intact. Wound/Incision 02/21/24 Pressure Injury Buttock Left (Active) Respiratory -Normal effort, no respiratory distress, no cyanosis HOB has to be up more than 30 degrees. Abdomen - soft, nontender, and nondistended Lower Extremities - edema bilaterally and muscle stiffness unable to move legs on her own. : LABS CBC: Lab Results Component Value Date WBC 9.6 02/22/2024 HGB 9.6 (L) 02/22/2024 HCT 30.2 (L) 02/22/2024 MCV 89.9 02/22/2024 PLT 195 02/22/2024 BMP: Lab Results Component Value Date NA 132 (L) 02/22/2024 K 3.9 02/22/2024 CL 99 02/22/2024 CO2 29 02/22/2024 BUN 32 (H) 02/22/2024 CREATININE 1.17 (H) 02/22/2024 PT/INR: Lab Results Component Value Date PROTIME 10.5 02/21/2024 INR 1.0 02/21/2024 Prealbumin: No results found for: PREALBUMIN Albumin:No components found for: LABALBU Sed Rate:No results found for: SEDRATE Micro: No components found for: BC Assessment/Plan: Yeast bilateral breasts - ketoconazole cream BID after cleansing . Bilateral buttock - MASD -ET mix BID , alternate with barrier with zinc apply to bilateral buttock q shift and after each incont. Episode. Becky wick for incont. Urine. Change per facility protocol. Turn and reposition P500 mattress. Has low air loss at the ECF. Immobile. Nutritional support Wound Care to follow Please follow up at [facility] wound care dawson after hospital discharge. Thank you for the consult! Please secure chat me for questions. I personally obtained the patterson and critical portions of the history and physical exam. I reviewed the labs, imaging studies, and electronic medical record. I reviewed the chart documentation and discussed the patient with treatment team members. I have edited the note to reflect my clinical findings and my assessment and plan. Please note, the time of this note does not reflect the time I saw this patient today, but the time of this documentaton. Portions of this note including HPI, ROS, impression/plan, and examination may have been copied forward from admission to today as to provide important historical information essential in contributing to medical decision making. Documentation has been reviewed and edited as necessary to support clinical decision making for today's visit and to reflect my own independent evaluation of this patient. Decision making for today's visit and to reflect my own independent evaluation of this patient. Associated Order(s): IP CONSULT TO INFECTIOUS DISEASES Images from the original note were not included. [facility] - Infectious Diseases Attending Consult Note Reason for Consult: Sepsis, ESBL- E coli bacteremia. History of Present Illness: 68 y/o female was admitted on 02/21/24 from SNF due to mental status change and fever of 107F ; in ED on presentation, she was tachycardic (P 109), hypoxic (Pox 89%); labs showed leukocytosis (15.2k), elevated creatinine (1.29), lactic acidosis (2.0), pyuria (>100 wbc), CT head showed Mucosal thickening in the paranasal sinuses and fluid in the right sphenoid sinus, ceftriaxone was given in ED. She was seen, found her sleeping, wake up with vocal response, followed commands appropriately; c/o weakness, frequency of urination, doesn't walk, uses 4L O2, appeared debilitated and ill. She was examined; notes, labs, imaging were reviewed and treatment plan was discussed. Past Medical History: Past Medical History: Diagnosis Date CHF (congestive heart failure) ([facility]) COPD (chronic obstructive pulmonary disease) ([facility]) Diabetes mellitus ([facility]) Past Surgical History: Past Surgical History: Procedure Laterality Date CHOLECYSTECTOMY COLONOSCOPY throat biopsy Current Medications: Current Facility-Administered Medications Medication Dose Route Frequency Provider Last Rate Last Admin acetaminophen (Tylenol) tablet 650 mg 650 mg Oral q6h PRN Shmuel Trevino MD Or acetaminophen (Tylenol) suppository 650 mg 650 mg Rectal q6h PRN Shmuel Trevino MD aspirin EC tablet 81 mg 81 mg Oral Daily Rob Lai MD 81 mg at 02/22/24 0855 atorvastatin (Lipitor) tablet 40 mg 40 mg Oral Daily Rob Lai MD 40 mg at 02/22/24 0855 bisacodyl (Dulcolax) EC tablet 5 mg 5 mg Oral Daily PRN Rob Lai MD dextrose 5 % infusion 100 mL/hr IntraVENous PRN Shmuel Trevino MD dextrose 50 % solution 12.5 g 12.5 g IntraVENous PRN Shmuel Trevino MD enoxaparin (Lovenox) syringe 40 mg 40 mg SubCUTAneous Daily Shmuel Trevino MD 40 mg at 02/22/24 0855 ertapenem (INVanz) 1,000 mg in sodium chloride 0.9 % 50 mL IVPB Mini-Bag Plus 1,000 mg IntraVENous q24h Clare Del Cid MD Stopped at 02/22/24 1103 famotidine (Pepcid) tablet 40 mg 40 mg Oral Daily Rob Lai MD 40 mg at 02/22/24 0855 glucagon (human recombinant) injection 1 mg 1 mg IntraMUSCular PRN Shmuel Trevino MD glucose oral gel 15 g 15 g Oral PRN Shmuel Trevino MD insulin glargine (Lantus) injection 55 Units 55 Units SubCUTAneous BID Rob Lai MD Insulin Lispro (Humalog) injection 0-12 Units 0-12 Units SubCUTAneous TID WC Shmuel Trevino MD And Insulin Lispro (Humalog) injection 0-12 Units 0-12 Units SubCUTAneous Nightly Shmuel Trevino MD ipratropium-albuterol (Duo-Neb) 0.5-2.5 mg/3 mL nebulizer solution 3 mL 3 mL Nebulization q4h PRN Shmuel Trevino MD isosorbide mononitrate ER (Imdur) 24 hr tablet 30 mg 30 mg Oral Daily Rob Lai MD 30 mg at 02/22/24 0855 methenamine hippurate (Hiprex) tablet 1 g 1 g Oral BID Rob Lai MD 1 g at 02/22/24 0857 metoprolol succinate XL (Toprol-XL) 24 hr tablet 25 mg 25 mg Oral Daily Rob Lai MD 25 mg at 02/22/24 0855 naloxone (Narcan) injection 0.4 mg 0.4 mg IntraVENous q5 min PRN Shmuel Trevino MD oxyCODONE-acetaminophen (Percocet) 5-325 MG per tablet 1 tablet 1 tablet Oral q6h PRN Rob Lai MD polyethylene glycol (PEG) 3350 (Miralax) packet 17 g 17 g Oral Daily PRN Shmuel Trevino MD promethazine (Phenergan) tablet 12.5 mg 12.5 mg Oral q6h PRN Rob Lai MD Or promethazine (Phenergan) injection 12.5 mg 12.5 mg IntraMUSCular q6h PRN Rob Lai MD 12.5 mg at 02/22/24 0416 Or promethazine (Phenergan) suppository 12.5 mg 12.5 mg Rectal q6h PRN Rob Lai MD QUEtiapine (SEROquel) tablet 12.5 mg 12.5 mg Oral BID PRN Shmuel Trevino MD ranolazine (Ranexa) 12 hr tablet 1,000 mg 1,000 mg Oral BID Rob Lai MD 1,000 mg at 02/22/24 0855 senna-docusate sodium (Senokot-S) 8.6-50 MG tablet 1 tablet 1 tablet Oral Daily Rob Lai MD venlafaxine XR (Effexor XR) 24 hr capsule 75 mg 75 mg Oral Daily Rob Lai MD 75 mg at 02/22/24 0855 Allergies: Allergies Allergen Reactions Dulaglutide Empagliflozin Hydromorphone Metformin Morphine Ondansetron Penicillins Social History: Social History Socioeconomic History Marital status: Spouse name: Not on file Number of children: Not on file Years of education: Not on file Highest education level: Not on file Occupational History Not on file Tobacco Use Smoking status: Former Smokeless tobacco: Never Substance and Sexual Activity Alcohol use: Not on file Drug use: Not on file Sexual activity: Not on file Other Topics Concern Not on file Social History Narrative Home with daughter Social Determinants of Health Financial Resource Strain: Not on file Food Insecurity: No Food Insecurity (02/22/2024) Hunger Vital Sign Worried About Running Out of Food in the Last Year: Never true Ran Out of Food in the Last Year: Never true Transportation Needs: No Transportation Needs (02/22/2024) PRAPARE - Transportation Lack of Transportation (Medical): No Lack of Transportation (Non-Medical): No Physical Activity: Not on file Stress: Not on file Social Connections: Not on file Intimate Partner Violence: Not At Risk (02/22/2024) Humiliation, Afraid, Rape, and Kick questionnaire Fear of Current or Ex-Partner: No Emotionally Abused: No Physically Abused: No Sexually Abused: No Housing Stability: Unknown (02/22/2024) Housing Stability Vital Sign Unable to Pay for Housing in the Last Year: No Number of Places Lived in the Last Year: Not on file Unstable Housing in the Last Year: No Family History: No family history on file. Review of Systems: Review of Systems Constitutional: Positive for activity change, chills, fatigue and fever. HENT: Negative for ear pain. Eyes: Negative for pain. Respiratory: Negative for cough. Cardiovascular: Negative for chest pain. Gastrointestinal: Negative for abdominal pain. Endocrine: Negative for polydipsia. Genitourinary: Positive for frequency. Musculoskeletal: Negative for arthralgias. Neurological: Positive for weakness. Negative for headaches. Psychiatric/Behavioral: Negative for agitation. Vitals: Patient Vitals for the past 24 hrs: BP Temp Temp src Pulse Resp SpO2 Height Weight 02/22/24 1117 146/85 36.4 C (97.6 F) Temporal 95 18 95 % -- -- 02/22/24 1100 -- -- -- -- -- -- 1.651 m (5' 5) -- 02/22/24 0816 160/79 36.8 C (98.2 F) Temporal 105 17 100 % -- -- 02/22/24 0612 -- -- -- -- -- -- -- 133 kg (293 lb 3.4 oz) 02/22/24440 149/57 36.5 C (97.7 F) Temporal 105 19 100 % -- -- 02/22/24 0441 -- -- -- 105 -- -- -- -- 02/21/24 2130 130/62 36.5 C (97.7 F) Temporal 100 18 96 % -- -- 02/21/24 2011 122/80 -- -- 104 16 100 % -- -- 02/21/24 1758 (!) 138/95 -- -- (!) 114 16 100 % -- -- 02/21/24 1701 -- 36.9 C (98.4 F) Oral -- -- -- -- -- 02/21/24 1534 115/82 -- -- 102 16 100 % -- -- Physical Exam: Physical Exam Vitals and nursing note reviewed. Constitutional: General: She is in acute distress. Appearance: She is obese. She is ill-appearing and toxic-appearing. Eyes: Extraocular Movements: Extraocular movements intact. Conjunctiva/sclera: Conjunctivae normal. Pupils: Pupils are equal, round, and reactive to light. Cardiovascular: Rate and Rhythm: Regular rhythm. Tachycardia present. Heart sounds: Normal heart sounds. Pulmonary: Effort: Pulmonary effort is normal. Breath sounds: Normal breath sounds. Musculoskeletal: Cervical back: No rigidity. Right foot: Swelling present. Left foot: Swelling present. Neurological: Mental Status: She is alert and oriented to person, place, and time. Cranial Nerves: Cranial nerves 2-12 are intact. Sensory: Sensation is intact. Motor: No tremor. Coordination: Owaixm-Cdhn-Aoqshy Test normal. Psychiatric: Attention and Perception: Perception normal. Speech: Speech is delayed. Labs: Recent Labs 02/21/24 11202/22/24 0407 NA 134* 132* K 4.3 3.9 CL 98 99 CO2 32* 29 BUN 44* 32* CREATININE 1.29* 1.17* GLUCOSE 148* 142* CALCIUM 8.7 8.2* PROT 5.7* 5.3* BILITOT 0.6 0.6 ALKPHOS 78 75 AST 21 21 ALT 19 18 PROCAL -- 0.41* Recent Labs 02/21/24112302/22/24 0407 WBC 15.2* 9.6 HGB 10.0* 9.6* HCT 31.3* 30.2* PLT 201 195 LYMPHOPCT 6.3* 9.5* MONOPCT 8.3 8.8 BASOPCT 0.2 0.2 NEUTROABS 12.5* 7.5 Micro: No results for input(s): COVID19 in the last 72 hours. 02/21/2024 1759 02/21/2024 1834 Urine culture [[id number]] Urine, Clean Catch In process Component Value No component results 02/21/2024 1135 02/21/2024 1628 COVID-19, Flu A/B, and RSV Combo [[id number]] Swab from Nasopharynx Final result Component Value SARS-CoV-2 Not Detected Respiratory Syncytial Virus Not Detected Influenza A Not Detected Influenza B Not Detected 02/21/2024 1124 02/22/2024 0622 Blood culture Site #1 - Suspected Infection [[id number]] (Abnormal) Blood, Venous Preliminary result Component Value Blood Culture Gram-negative bacilli Panic P 02/21/2024 1124 02/22/2024 0622 Blood Culture Identification - Anaerobic [[id number]] (Abnormal) Blood, Venous Final result Component Value Escherichia coli Detected Abnormal CTX-M (ESBL gene) Detected Abnormal Lines: PIV Radiography/Echo/Other: Procedure Component Value Units Date/Time US renal complete [[id number]] Resulted: 02/22/24 1212 Order Status: Sent Updated: 02/22/24 1237 CTA chest angiogram w and/or wo IV contrast [[id number]] Collected: 02/21/24 1348 Order Status: Completed Updated: 02/21/24 1357 Narrative: [facility] 1955 [id number] Exam Date/Time: 02/21/2024 13:41 Procedure: CT CHEST ANGIOGRAM W AND/OR WO IV CONTRAST Ordering Provider: STEWART NISHIT Reason For Exam: Pulmonary embolism (PE) suspected, positive D-dimer EXAMINATION: CT CHEST ANGIOGRAM W AND/OR WO IV CONTRAST CLINICAL HISTORY: Pulmonary embolism (PE) suspected, positive D-dimer COMPARISON: None TECHNIQUE: Axial images of the chest were obtained from above the lung apices through the level of the adrenal glands during the bolus administration of intravenous contrast. Multiplanar and 3D maximum intensity projection reformulation's were created from the raw CT data which were interpreted in conjunction with the axial images to render the findings listed below. Dose reduction was employed with automated exposure control. FINDINGS: Exam Quality: Overall exam quality is suboptimal. Pulmonary arterial enhancement is optimal, the breath hold is suboptimal, and there are significant artifacts impacting image quality. Pulmonary Arteries: There are no filling defects within the pulmonary arterial system to suggest pulmonary embolus, to the segmental level. Cardiovasculature: The heart is large. Severe three-vessel coronary calcification. Atherosclerotic calcifications within the thoracic aorta. Mediastinum/Pericardium: There is a hiatal hernia. Pleura: Unremarkable Central Airways: Widely patent Lungs: Motion artifact. No focal consolidation. Nodules: No nodules are present that require follow up. Lymph Nodes: No thoracic lymphadenopathy is evident. Visualized musculoskeletal structures: No acute fracture or destructive osseous lesion is identified. Included images of the upper abdomen: Unremarkable Impression: 1. No PE identified. PE cannot be evaluated beyond the pulmonary artery proximal segmental level due to study limitations above. 2. No acute pulmonary abnormalities. 3. Cardiomegaly and three-vessel coronary artery calcification. Report Dictated on Electronically Signed By: Frankie Patel MD Electronically Signed Date/Time: 02/21/2024 1:56 PM EDT XR chest 1 view [[id number]] Collected: 02/21/24 1219 Order Status: Completed Updated: 02/21/24 1220 Narrative: [facility] 1955 [id number] Exam Date/Time: 02/21/2024 12:03 Procedure: XR CHEST 1 VIEW Ordering Provider: STEWART NISHIT Reason For Exam: hypoxemia AP CHEST X-RAY CLINICAL INDICATION: hypoxemia TECHNIQUE: AP portable x-ray of the chest. COMPARISON: 04/30/2022 FINDINGS: Limitations: The study is limited due to patient rotation and patient positioning. Lines/Tubes: None Heart/Mediastinum: Indeterminate Lungs: Grossly clear. Bones: Unremarkable Impression: Limited study with no obvious acute findings. Report Dictated on Electronically Signed By: Frankie Patel MD Electronically Signed Date/Time: 02/21/2024 12:[address] head wo IV contrast [[id number]] Collected: 02/21/24 1153 Order Status: Completed Updated: 02/21/24 1156 Narrative: [facility]L [facility] 1955 [id number] Exam Date/Time: 02/21/2024 11:44 Procedure: CT HEAD WO IV CONTRAST Ordering Provider: STEWART NISHIT Reason For Exam: Mental status change, unknown cause CT HEAD WITHOUT CONTRAST CLINICAL HISTORY: Mental status change, unknown cause COMPARISON: 10/02/2021 TECHNIQUE: Helical CT of the brain without contrast. Dose reduction was employed with automated exposure control. FINDINGS: Acute Findings: No hemorrhage, mass, or infarct. Chronic Changes: None identified. Ventricles and sulci: Stable generalized parenchymal volume loss. No hydrocephalus. Other: Opacified right sphenoid sinus and mucosal thickening in the left sphenoid sinus, posterior ethmoid air cell, and right maxillary sinus. Retained fluid partially opacifies the mastoid air cells bilaterally. No acute osseous findings. Impression: 1. No acute intracranial abnormalities. 2. Mucosal thickening in the paranasal sinuses and fluid in the right sphenoid sinus. Please correlate for sinusitis. Report Dictated on Electronically Signed By: Frankie Patel MD Electronically Signed Date/Time: 02/21/2024 11:55 AM EDT Antimicrobials,Start/End Dates: Ceftr 02/20- Erta 02/21- Impression: Severe sepsis (fever, tachycardia, leukocytosis, lactic acidosis). ESBL- E coli bacteremia. Pyuria with UTI. Sinusitis. Chronic resp failure. Obesity disorder. Poorly controlled DM. Plan: Pt sick due to sepsis due to ESBL- E coli bacteremia due to UTI. Mental status improved. Fever decreased but tachycardic. Await urine cx result. If urine cx grows ESBL-E coli, blood cxs may not be repeated. Continue ertapenem for 2 weeks. Follow renal function for dose adjustment. High level complexity medical decision making. ID will follow. Thank you. Dr. Mckeon covers weekend. Total time 75 minutes on this day of encounter includes counseling, coordinating plan of care, record and documentation review before and after visit including documentation and time not explicitly included on EMR time stamp for accounting for open encounter. Associated Order(s): IP CONSULT TO GERIATRICS [facility] Geriatric Medicine Inpatient Consult Service Admission Date: 02/21/2024 Admission Status: INPATIENT Chief Complaint: Chief Complaint Patient presents with Altered Mental Status Fever Reason for Appointment Geriatrics consulted for Delirium Assessment & Plan Principal Problem: Sphenoid sinusitis, unspecified chronicity Metabolic encephalopathy --Waxing/waning --Etiology likely related to bactermia/UTI, change of environment --Encourage PO intake, time up in chair, family visits, supervised ambulation, and sleep hygiene --If agitated, assess for and consider treating for pain --QTc= 448 --No antipsychotic unless patient is danger to self/others/treatment --Start PRN melatonin at HS --Monitor for constipation/urinary retention - last BM unknown --Possible medication contributions: -avoid hydroxyzine if possible as may worsen cognition due to anticholinergic effects Bipolar disorder -per patient's daughter has been under reasonable control, does not routinely have hallucinations Functional impairment/bedbound/mohamud dependent -plan to return to facility, likely LTC Subjective: HPI 68 y.o. year-old female presented to the hospital With change in mental status. She resides at [facility] [place] and hospitalized for long-term care,She has been there for over a year. Family presented and was going to discharge back to facility however became acutely more confused emergency room and decision was made for admission. Patient is unable to provide any additional history of her recent symptoms. Discussed with bedside nursing tech, they were able to change her this morning, she was a bit more alert and interactive during that time but was irritable. Quickly fell back to sleep and has been sleeping most of the morning. Discussion with patient's daughter-she has had several hospitalizations with similar symptoms particularly when associated UTI and bloodstream infection. Reviewed medical record indicates that she has had several ED visits for change in mental status and hallucinations over the past 6 to 9 months. labs with WBC 9.6, hemoglobin 9.6, platelets 195 Sodium 132, potassium 3.9, creatinine 1.17, BUN 32 TSH within normal limits UA positive for leukocytes and nitrites, moderate bacteria, urine cultures pending. Blood culture positive for E. Coli CT head with no acute findings, mucosal thickening in paranasal sinuses Nursing Delirium Screen (Nu-Desc): Nursing Delirium Symptom Checklist Total Score: 0 Conversation with caregiver: daughter. Alexandro Cote [phone] -states that patient experiences similar symptoms with UTI/blood stream infections -has had hallucinations with infections, but doesn't usually seem to distressing/disturbing -from mental health, at her baseline she is good - states she plays on her phone, doesn't do a lot of socializing, doesn't go down for activities, doesn't like the mohamud lift. 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, goes to [facility] and has been much better controlled -has gained about 50 lbs based on the scale, did note that she has been gaining weight -bipolar has been under pretty good control for many years Advance Care Planning Code Status: Full Code Allergies Allergen Reactions Dulaglutide Empagliflozin Hydromorphone Metformin Morphine Ondansetron Penicillins Current Facility-Administered Medications: acetaminophen (Tylenol) tablet 650 mg, 650 mg, Oral, q6h PRN OR acetaminophen (Tylenol) suppository 650 mg, 650 mg, Rectal, q6h PRN, Shmuel Trevino MD aspirin EC tablet 81 mg, 81 mg, Oral, Daily, Rob Lai MD, 81 mg at 02/22/24 0855 atorvastatin (Lipitor) tablet 40 mg, 40 mg, Oral, Daily, Rob Lai MD, 40 mg at 02/22/24 0855 bisacodyl (Dulcolax) EC tablet 5 mg, 5 mg, Oral, Daily PRN, Rob Lai MD dextrose 5 % infusion, 100 mL/hr, IntraVENous, PRN, Shmuel Trevino MD dextrose 50 % solution 12.5 g, 12.5 g, IntraVENous, PRN, Shmuel Trevino MD enoxaparin (Lovenox) syringe 40 mg, 40 mg, SubCUTAneous, Daily, Shmuel Trevino MD, 40 mg at 02/22/24 0855 ertapenem (INVanz) 1,000 mg in sodium chloride 0.9 % 50 mL IVPB Mini-Bag Plus, 1,000 mg, IntraVENous, q24h, Clare Del Cid MD, Stopped at 02/22/24 1103 famotidine (Pepcid) tablet 40 mg, 40 mg, Oral, Daily, Rob Lai MD, 40 mg at 02/22/24 0855 glucagon (human recombinant) injection 1 mg, 1 mg, IntraMUSCular, PRN, Shmuel Trevino MD glucose oral gel 15 g, 15 g, Oral, PRN, Shmuel Trevino MD insulin glargine (Lantus) injection 55 Units, 55 Units, SubCUTAneous, BID, Rob Lai MD Insulin Lispro (Humalog) injection 0-12 Units, 0-12 Units, SubCUTAneous, TID WC AND Insulin Lispro (Humalog) injection 0-12 Units, 0-12 Units, SubCUTAneous, Nightly, Shmuel Trevino MD ipratropium-albuterol (Duo-Neb) 0.5-2.5 mg/3 mL nebulizer solution 3 mL, 3 mL, Nebulization, q4h PRN, Shmuel Trevino MD isosorbide mononitrate ER (Imdur) 24 hr tablet 30 mg, 30 mg, Oral, Daily, Rob Lai MD, 30 mg at 02/22/24 0855 methenamine hippurate (Hiprex) tablet 1 g, 1 g, Oral, BID, Rob Lai MD, 1 g at 02/22/24 0857 metoprolol succinate XL (Toprol-XL) 24 hr tablet 25 mg, 25 mg, Oral, Daily, Rob Lai MD, 25 mg at 02/22/24 0855 naloxone (Narcan) injection 0.4 mg, 0.4 mg, IntraVENous, q5 min PRN, Shmuel Trevino MD oxyCODONE-acetaminophen (Percocet) 5-325 MG per tablet 1 tablet, 1 tablet, Oral, q6h PRN, Rob Lai MD polyethylene glycol (PEG) 3350 (Miralax) packet 17 g, 17 g, Oral, Daily PRN, Shmuel Trevino MD promethazine (Phenergan) tablet 12.5 mg, 12.5 mg, Oral, q6h PRN OR promethazine (Phenergan) injection 12.5 mg, 12.5 mg, IntraMUSCular, q6h PRN, 12.5 mg at 02/22/24 0416 OR promethazine (Phenergan) suppository 12.5 mg, 12.5 mg, Rectal, q6h PRN, Rob Lai MD QUEtiapine (SEROquel) tablet 12.5 mg, 12.5 mg, Oral, BID PRN, Shmuel Trevino MD ranolazine (Ranexa) 12 hr tablet 1,000 mg, 1,000 mg, Oral, BID, Rob Lai MD, 1,000 mg at 02/22/24 0855 senna-docusate sodium (Senokot-S) 8.6-50 MG tablet 1 tablet, 1 tablet, Oral, Daily, Rob Lai MD venlafaxine XR (Effexor XR) 24 hr capsule 75 mg, 75 mg, Oral, Daily, Rob Lai MD, 75 mg at 02/22/24 0855 Past Medical History: Diagnosis Date CHF (congestive heart failure) ([facility]) COPD (chronic obstructive pulmonary disease) (CMS/HCC) Diabetes mellitus (CMS/HCC) Past Surgical History: Procedure Laterality Date CHOLECYSTECTOMY COLONOSCOPY throat biopsy Social History Tobacco Use Smoking status: Former Smokeless tobacco: Never Substance Use Topics Alcohol use: Not on file Social History Social History Narrative Home with daughter Family History No family history on file. No family status information on file. Review of Systems Unable to perform ROS: Mental status change Functional Status Prior to Admission: (I: Independent, A: Assisted, D: Dependent) ADLs I A D Notes Bathing [] [] [x] Dressing [] [] [x] Toileting [] [] [x] Transfers [] [] [x] mohamud Feeding [] [] [] Ambulation [] [] [x] IADLs I A D Telephone [x] [] [] Transportation [] [] [x] Shopping [] [] [x] Meal prep [] [] [x] Housework [] [] [x] Medications [] [] [x] Facility Finances [] [] [x] Facility manages Objective: BP 146/85 Pulse 95 Temp 36.4 C (97.6 F) (Temporal) Resp 18 Ht 5' 5 (1.651 m) Wt 293 lb 3.4 oz (133 kg) SpO2 95% BMI 48.79 kg/m No intake or output data in the 24 hours ending 02/22/24 1231 Wt Readings from Last 3 Encounters: 02/22/24 293 lb 3.4 oz (133 kg) 10/19/21 279 lb (127 kg) 10/18/21 279 lb (127 kg) Physical Exam Constitutional: General: She is not in acute distress. Comments: Somnolent, briefly awakens but falls back to sleep quickly Requests to stop interview and exam multiple times Eyes: General: Right eye: No discharge. Left eye: No discharge. Comments: Wouldn't open eyes Cardiovascular: Rate and Rhythm: Normal rate and regular rhythm. Heart sounds: Normal heart sounds. No murmur heard. Pulmonary: Effort: Pulmonary effort is normal. No respiratory distress. Breath sounds: Normal breath sounds. No wheezing or rales. Comments: Poor effort Abdominal: General: Bowel sounds are normal. There is no distension. Palpations: Abdomen is soft. Tenderness: There is no abdominal tenderness. Musculoskeletal: General: No tenderness. Cervical back: Neck supple. Right lower leg: No edema. Left lower leg: No edema. Lymphadenopathy: Cervical: No cervical adenopathy. Skin: General: Skin is warm and dry. Findings: No rash (dry skin bl feet, no open/bullous areas on legs or arms). Comments: Abrasion bl knees Neurological: Mental Status: She is alert. She is disoriented. Sensory: Sensory deficit: light touch bl feet, does not withdraw. Comments: Poor effort, nonpaticipatory Psychiatric: Comments: inattentive to interview and exam Mini-Mental Status Exam: Unable to perform; will reattempt if appropriate Labs and Imaging: Recent Results (from the past 24 hour(s)) Troponin I Collection Time: 02/21/24 3:35 PM Result Value Ref Range TROPONIN I 0.049 (H) <0.034 ng/mL Complete Urinalysis Collection Time: 02/21/24 5:59 PM Result Value Ref Range Color, Urine Yellow Lt. Yellow Clarity, Urine Turbid (A) Clear pH, Urine 6.0 5.0 - 8.0 pH Leukocytes, Urine 500 (A) Negative Ha/uL Nitrite, Urine Positive (A) Negative Protein, Urine 30 (A) Negative mg/dL Glucose, Urine Normal Normal (<70) mg/dL Bilirubin, Urine Negative Negative mg/dL Ketones, Urine Negative Negative mg/dL Urobilinogen, Urine Normal Normal (0-1) mg/dL Blood, Urine 0.2 (A) Negative mg/dL RBC, Urine 6-10 (A) 0 - 2 /HPF WBC, Urine >100 (A) 0 - 5 /HPF Squamous Epithelial, Urine 6-10 (A) 3 - 5 /HPF Bacteria, Urine Moderate (A) Negative /HPF Mucus, Urine Few Negative /LPF SPECIFIC GRAVITY OF URINE (NUMERIC) 1.046 (H) 1.005 - 1.030 POCT glucose meter Collection Time: 02/21/24 8:20 PM Result Value Ref Range Glucose 141 (H) 70 - 100 mg/dL Troponin I Collection Time: 02/21/24 8:25 PM Result Value Ref Range TROPONIN I 0.052 (H) <0.034 ng/mL POCT glucose meter Collection Time: 02/21/24 9:54 PM Result Value Ref Range Glucose 138 (H) 70 - 100 mg/dL Procalcitonin Test Collection Time: 02/22/24 4:07 AM Result Value Ref Range PROCALCITONIN 0.41 (H) 0.00 - 0.09 ng/mL Vitamin B12 Collection Time: 02/22/24 4:07 AM Result Value Ref Range VITAMIN B12 294 239 - 931 pg/mL TSH Collection Time: 02/22/24 4:07 AM Result Value Ref Range THYROID STIMULATING HORMONE 1.267 0.465 - 4.680 uIU/mL Hemoglobin A1c Collection Time: 02/22/24 4:07 AM Result Value Ref Range HEMOGLOBIN A1C 7.0 (H) <5.7 % ESTIMATED AVERAGE GLUCOSE 154 mg/dL CBC auto differential Collection Time: 02/22/24 4:07 AM Result Value Ref Range Auto WBC 9.6 3.6 - 10.7 10*3/uL RBC 3.36 (L) 3.80 - 5.20 10*6/uL Hemoglobin 9.6 (L) 11.7 - 16.0 g/dL Hematocrit 30.2 (L) 35.0 - 47.0 % MCV 89.9 77.0 - 99.0 fL MCH 28.6 26.0 - 34.0 pg MCHC 31.8 30.5 - 36.0 % RDW 15.6 (H) 11.5 - 15.0 % Platelets 195 140 - 440 10*3/uL MPV 8.8 (L) 9.0 - 12.7 fL nRBC 0.0 0.0 - 2.0 /100 WBCs Neutrophils Relative 77.7 38.0 - 82.0 % Lymphocytes Relative 9.5 (L) 15.0 - 45.0 % Monocytes Relative 8.8 5.0 - 13.0 % Eosinophils Relative 0.5 0.0 - 6.0 % Basophils Relative 0.2 0.0 - 2.0 % Immature Grans % 3.3 (H) 0.0 - 2.0 % Neutrophils Absolute 7.5 1.8 - 7.5 10*3/uL Lymphocytes Absolute 0.9 (L) 1.0 - 4.3 10*3/uL Monocytes Absolute 0.9 0.0 - 0.9 10*3/uL Eosinophils Absolute 0.1 0.0 - 0.5 10*3/uL Basophils Absolute 0.0 0.0 - 0.2 10*3/uL Immature Grans Absolute 0.3 (H) <0.1 10*3/uL Comprehensive metabolic panel Collection Time: 02/22/24 4:07 AM Result Value Ref Range SODIUM 132 (L) 135 - 145 mmol/L POTASSIUM 3.9 3.5 - 5.1 mmol/L CHLORIDE 99 98 - 107 mmol/L CARBON DIOXIDE 29 22 - 30 mmol/L ANION GAP 5 3 - 13 mmol/L UREA NITROGEN 32 (H) 7 - 17 mg/dL CREATININE 1.17 (H) 0.52 - 1.04 mg/dL GLUCOSE 142 (H) 70 - 100 mg/dL CALCIUM 8.2 (L) 8.4 - 10.4 mg/dL AST (SGOT) 21 15 - 46 U/L ALT 18 0 - 34 U/L ALKALINE PHOSPHATASE 75 38 - 126 U/L ALBUMIN 2.7 (L) 3.5 - 5.0 g/dL BILIRUBIN, TOTAL 0.6 0.2 - 1.3 mg/dL TOTAL PROTEIN 5.3 (L) 6.3 - 8.2 g/dL eGFR 51.6 (L) >60.0 mL/min/1.73m*2 POCT glucose meter Collection Time: 02/22/24 8:54 AM Result Value Ref Range Glucose 148 (H) 70 - 100 mg/dL POCT glucose meter Collection Time: 02/22/24 11:19 AM Result Value Ref Range Glucose 150 (H) 70 - 100 mg/dL Lab Results Component Value Date TSH 1.267 02/22/2024 No components found for: B12 No results found for: VITD25 Reviewed: medication list, allergies, family history, social history, notes from last several encounters, lab results, imaging Follow-up: will plan to follow up Sunday, for acute geriatric issues over the weekend, please page Dr. Oh/Dr. Rainey (Please note: Portions of this note were completed with a voice recognition program. Efforts were made to edit the dictations but occasionally words and phrases are mis-transcribed.) Renee Rainey DO 02/22/24 12:31 PM documented in this encounter [facility] 02-22-2024 Note Referral placed to kris kimbrough back to [facility] via [facility] per TCC request. Await review and response regarding ability to accept. TCC notified. [facility] 02-21-2024 Emergency department Note This RN spoke with patient at this time. Patient educated on the in and out of confusion that she has experienced and the results of UA. Patient educated that physician aware that she would like to speak with them. Patient agrees to stay at this time. Anoop Osborne RN 02/21/24 2114 Upon this RN going to patient room to assist on getting ready for transport, patient began speaking incomprehensible wording. Patient not making sense to this RN. Patient baseline is A&Ox3. Patient asked this RN to Shut the front door as you come in to the barn. ED physician made aware, as well as transport. Anoop Osborne RN 02/21/24 1815 This RN asked patient to check to ensure proper placement of pure wick for urine collection. Patient refused. Anoop Osborne RN 02/21/[address]/XR via bed at this time. Anoop Osborne RN 02/21/24 1142 Second set of cultures drawn at this time and left at bedside, awaiting orders. Anoop Osborne RN 02/21/24 1535 EMERGENCY DEPARTMENT ENCOUNTER Pt Name: Kimberly Patel Birthdate 1955 Date of evaluation: 02/21/2024 CHIEF COMPLAINT Chief Complaint Patient presents with Altered Mental Status Fever HISTORY OF PRESENT ILLNESS HPI Kimberly Patel is a 68 y.o. female who presents to the emergency department with fever or report temperature was 107 F, she had change in mental status of decreased interaction. At baseline she is wheelchair-bound. She denies any pain currently. At baseline she wears 4 L nasal cannula. REVIEW OF SYSTEMS Review of Systems Patient Active Problem List Diagnosis Physical debility Other hyperlipidemia CAD (coronary artery disease) Primary hypertension Neuropathy Bacteremia Acute kidney injury superimposed on CKD (HCC) (HCC) Type 2 diabetes mellitus with diabetic polyneuropathy, with long-term current use of insulin ([facility]) CURRENT MEDICATIONS Previous Medications No medications on file ALLERGIES Dulaglutide, Empagliflozin, Hydromorphone, Metformin, Morphine, Ondansetron, and Penicillins FAMILY HISTORY No family history on file. SOCIAL HISTORY Social History Socioeconomic History Marital status: Tobacco Use Smoking status: Former Smokeless tobacco: Never Social History Narrative Home with daughter Social Determinants of Health Tobacco Use: Medium Risk (10/19/2021) Patient History Smoking Tobacco Use: Former Smokeless Tobacco Use: Never Passive Exposure: Not on file Alcohol Use: Not on file Financial Resource Strain: Not on file Food Insecurity: Not on file Transportation Needs: Not on file Physical Activity: Not on file Stress: Not on file Social Connections: Not on file Intimate Partner Violence: Not on file Depression: Not on file Housing Stability: Not on file Utilities: Not on file PHYSICAL EXAM Vitals: 02/21/24 1031 02/21/24 1114 02/21/24 1534 BP: 104/79 115/82 BP Location: Left arm Left arm Patient Position: Lying Lying Pulse: 109 102 Resp: 14 16 Temp: 36.7 C (98.1 F) TempSrc: Oral SpO2: (!) 89% 100% 100% Weight: 133 kg (294 lb) Physical Exam Vitals and nursing note reviewed. Constitutional: General: She is in acute distress. Appearance: She is obese. She is ill-appearing and toxic-appearing. Eyes: Extraocular Movements: Extraocular movements intact. Conjunctiva/sclera: Conjunctivae normal. Pupils: Pupils are equal, round, and reactive to light. Cardiovascular: Rate and Rhythm: Regular rhythm. Tachycardia present. Heart sounds: Normal heart sounds. Pulmonary: Effort: Pulmonary effort is normal. Breath sounds: Normal breath sounds. Musculoskeletal: Cervical back: No rigidity. Right foot: Swelling present. Left foot: Swelling present. Neurological: Mental Status: She is alert and oriented to person, place, and time. Cranial Nerves: Cranial nerves 2-12 are intact. Sensory: Sensation is intact. Motor: No tremor. Coordination: Sxtugl-Dltw-Ldybom Test normal. Psychiatric: Attention and Perception: Perception normal. Speech: Speech is delayed. SCREENINGS Medical decision making Medical Decision Making Problems Addressed: Bilateral lower extremity edema: complicated acute illness or injury Fever, unspecified fever cause: complicated acute illness or injury Sphenoid sinusitis, unspecified chronicity: complicated acute illness or injury Amount and/or Complexity of Data Reviewed Labs: ordered. Decision-making details documented in ED Course. Radiology: ordered. Decision-making details documented in ED Course. ECG/medicine tests: ordered. Risk Prescription drug management. DIAGNOSTIC RESULTS Procedures/EKG: Physician EKG interpretation can be found in [facility] if done RADIOLOGY (Per Emergency Physician): Interpretation per the Radiologist below, if available at the time of this note: CTA chest angiogram w and/or wo IV contrast Final Result 1. No PE identified. PE cannot be evaluated beyond the pulmonary artery proximal segmental level due to study limitations above. 2. No acute pulmonary abnormalities. 3. Cardiomegaly and three-vessel coronary artery calcification. Report Dictated on Electronically Signed By: Frankie Patel MD Electronically Signed Date/Time: 02/21/2024 1:56 PM EDT Vascular US lower extremity venous duplex bilateral Final Result XR chest 1 view Final Result Limited study with no obvious acute findings. Report Dictated on Electronically Signed By: Frankie Patel MD Electronically Signed Date/Time: 02/21/2024 12:[address] head wo IV contrast Final Result 1. No acute intracranial abnormalities. 2. Mucosal thickening in the paranasal sinuses and fluid in the right sphenoid sinus. Please correlate for sinusitis. Report Dictated on Electronically Signed By: Frankie Patel MD Electronically Signed Date/Time: 02/21/2024 11:55 AM EDT LABS: Labs Reviewed NT PRO BNP - Abnormal Result Value NT PRO BNP 1,320 (*) D-DIMER,QUANTITATIVE - Abnormal D-DIMER, INNOVANCE 0.91 (*) Narrative: Innovance D-Dimer values of <0.50 mg/L FEU can be used in combination with a pre-test probability model (e.g. Well's) to exclude pulmonary embolism (PE) disease, as well as an aid in the diagnosis of deep vein thrombosis (DVT). CBC WITH AUTO DIFFERENTIAL - Abnormal Auto WBC 15.2 (*) RBC 3.51 (*) Hemoglobin 10.0 (*) Hematocrit 31.3 (*) MCV 89.2 MCH 28.5 MCHC 31.9 RDW 15.8 (*) Platelets 201 MPV 8.5 (*) nRBC 0.0 Neutrophils Relative 82.4 (*) Lymphocytes Relative 6.3 (*) Monocytes Relative 8.3 Eosinophils Relative 0.4 Basophils Relative 0.2 Immature Grans % 2.4 (*) Neutrophils Absolute 12.5 (*) Lymphocytes Absolute 1.0 Monocytes Absolute 1.3 (*) Eosinophils Absolute 0.1 Basophils Absolute 0.0 Immature Grans Absolute 0.4 (*) COMPREHENSIVE METABOLIC PANEL - Abnormal SODIUM 134 (*) POTASSIUM 4.3 CHLORIDE 98 CARBON DIOXIDE 32 (*) ANION GAP 4 UREA NITROGEN 44 (*) CREATININE 1.29 (*) GLUCOSE 148 (*) CALCIUM 8.7 AST (SGOT) 21 ALT 19 ALKALINE PHOSPHATASE 78 ALBUMIN 2.9 (*) BILIRUBIN, TOTAL 0.6 TOTAL PROTEIN 5.7 (*) eGFR 45.9 (*) TROPONIN, WITH SERIAL REFLEX - Abnormal TROPONIN I 0.047 (*) Narrative: Patients with high levels of Biotin oral intake (ie >5 mg/day) may have falsely decreased Troponin levels. POCT GLUCOSE METER UNSOLICITED RESULTS - Abnormal Glucose 150 (*) Narrative: Performed by: [facility], [address] [place] [address] CLIA ID: [id number] POCT VENOUS BLOOD GAS UNSOLICITED RESULTS - Abnormal pH, Venous 7.363 pCO2, Venous 59.7 (*) pO2, Venous 34.8 HCO3, Venous 33.9 (*) Base Excess, Venous 4.7 (*) SO2, Venous 62.6 FIO2 Narrative: Performed by: [facility], [address] [place] [address] CLIA ID: [id number] PROTHROMBIN TIME - Normal PROTHROMBIN TIME 10.5 INR 1.0 LACTIC ACID WITH REFLEX - Normal LACTIC ACID 2.0 MAGNESIUM - Normal MAGNESIUM 1.9 THYROID STIMULATING HORMONE - Normal THYROID STIMULATING HORMONE 2.113 POCT GLUCOSE METER - Normal Glucose Blood, POC 150 BLOOD CULTURE SARS-COV-2, FLU A/B, AND RSV COMBO COMPLETE URINALYSIS WITH REFLEX TO CULTURE Narrative: The following orders were created for panel order Urinalysis complete with reflex to Culture. Procedure Abnormality Status --------- ------ Complete Urinalysis[[id number]] Please view results for these tests on the individual orders. BLOOD GAS, VENOUS COMPLETE URINALYSIS TROPONIN I TROPONIN I Medications ordered: Medications cefTRIAXone (Rocephin) 2,000 mg in sodium chloride 0.9 % 50 mL IVPB Mini-Bag Plus (2,000 mg IntraVENous New Bag 02/21/24 1524) sodium chloride 0.9 % bolus 500 mL IntraVENous New Bag 02/21/24 1525) sodium chloride 0.9 % bolus 500 mL IntraVENous Stopped 02/21/24 1235) iopamidol (Isovue-370) 76 % injection 75 mL (75 mL IntraVENous Given 02/21/24 1340) ED Course as of 02/21/24 1809 Margy Feb 21, [address] head wo IV contrast Sphenoid sinusitis [NM] 1224 XR chest 1 view Radiology: X-ray was reviewed and was independently interpreted by myself: Chest: was negative for infiltrate, effusion, pneumothorax, or normal mediastinum allowing for shallow breath [NM] 1228 SODIUM(!): 134 Prior medical records were reviewed: last year was 137mmol/l [NM] 1229 HEMOGLOBIN(!): 10.0 Prior medical records were reviewed: stable from 1 year ago [NM] 1539 Vascular US lower extremity venous duplex bilateral Us no dvt [NM] 1540 CTA chest angiogram w and/or wo IV contrast No pe [NM] ED Course User Index [NM] Serge Stewart MD Diagnoses as of 02/21/24 1809 Bilateral lower extremity edema Sphenoid sinusitis, unspecified chronicity Fever, unspecified fever cause Delirium * No order type specified * REVAL: CRITICAL CARE TIME PROCEDURES: Procedures FINAL IMPRESSION 1. Sphenoid sinusitis, unspecified chronicity 2. Bilateral lower extremity edema 3. Fever, unspecified fever cause DISPOSITION/PLAN DISPOSITION Discharge 02/21/2024 03:41:22 PM PATIENT REFERRED TO: Lucy Quick [address] [facility] [address] [facility] [id number] Call in 1 day Janie Guamansonia Pavonam, DO [address] [place] [address] [facility] [id number] Call in 1 day I prescribed: New Prescriptions CEFDINIR (OMNICEF) 300 MG CAPSULE Take 1 capsule (300 mg) by mouth 2 times daily for 10 days. (Comment: this report has been produced using speech recognition software and may contain errors related to that system including errors in grammar, punctuation, and spelling, as well as words and phrases that may be inappropriate) SERGE STEWART MD (electronically signed) Serge Stewart MD 02/21/24 1545 Patient seen and dispositioned by day physician but nurses advised the patient seems more delirious now when she was lucid throughout her stay. I went and rechecked her and she does seem delirious, knows she is in a hospital, could not identify the year, slightly tachycardic and agitated but not hypotensive or febrile. No facial asymmetry, moving all extremities, no meningismus, I noticed that urinalysis was not done earlier so nurses are sending that but I discussed the case with the hospitalist who agrees to admit the patient for acute delirium to the medical service for further management and treatment. Janie Finch MD 02/21/24 1811 [facility] sends patient by ambulance due to mental status change and fever of 107F. Patient was given PO Tylenol 1000mg. documented in this encounter [facility] 02-21-2024 Note Attending History an d Physical Admit Date: 02/21/2024 PCP: Lucy Quick CHIEF COMPLAINT: confusion Reason for Admission: altered mental status History Obtained From: patient/chart HISTORY OF PRESENT ILLNESS: Kimberly is a 68 y.o. female with past medical history below who presents with chief complaint listed above. She had altered mental status and reported fevers. She was originally seen and was going to be discharged but her confusion worsened and decision was made for admission. No cp, sob, cough, n/v, palpitations. She is on oxygen at home. Will admit for further evaluation and management. Seen and examined in the ED. Past Medical History: Past Medical History: Diagnosis Date CHF (congestive heart failure) ([facility]) COPD (chronic obstructive pulmonary disease) ([facility]) Diabetes mellitus ([facility]) Past Surgical History: Past Surgical History: Procedure Laterality Date CHOLECYSTECTOMY COLONOSCOPY throat biopsy Social History: Social History Socioeconomic History Marital status: Spouse name: Not on file Number of children: Not on file Years of education: Not on file Highest education level: Not on file Occupational History Not on file Tobacco Use Smoking status: Former Smokeless tobacco: Never Substance and Sexual Activity Alcohol use: Not on file Drug use: Not on file Sexual activity: Not on file Other Topics Concern Not on file Social History Narrative Home with daughter Social Determinants of Health Financial Resource Strain: Not on file Food Insecurity: Not on file Transportation Needs: Not on file Physical Activity: Not on file Stress: Not on file Social Connections: Not on file Intimate Partner Violence: Not on file Housing Stability: Not on file Family History: No family history on file. Medications Prior to Admission: No current facility-administered medications on file prior to encounter. No current outpatient medications on file prior to encounter. Allergies: Allergies Allergen Reactions Dulaglutide Empagliflozin Hydromorphone Metformin Morphine Ondansetron Penicillins REVIEW OF SYSTEMS: As per HPI otherwise 10 system review is unremarkable. Vitals: BP (!) 138/95 Pulse (!) 114 Temp 36.9 ?C (98.4 ?F) (Oral) Resp 16 Wt 294 lb (133 kg) SpO2 100% BMI 48.92 kg/m? BMI Classification: Morbidly Obese (>40.0) Pulse Ox: SpO2 Av.3 % Min: 89 % Max: 100 % Supplemental O2: PHYSICAL EXAM: Physical Exam Vitals and nursing note reviewed. Constitutional: General: She is not in acute distress. Appearance: She is obese. HENT: Head: Normocephalic and atraumatic. Mouth/Throat: Pharynx: Oropharynx is clear. Eyes: Extraocular Movements: Extraocular movements intact. Pupils: Pupils are equal, round, and reactive to light. Cardiovascular: Rate and Rhythm: Tachycardia present. Rhythm irregular. Pulses: Normal pulses. Heart sounds: Murmur heard. Pulmonary: Effort: Pulmonary effort is normal. Comments: Coarse breath sounds bilaterally Abdominal: General: Bowel sounds are normal. There is no distension. Palpations: Abdomen is soft. Tenderness: There is no abdominal tenderness. There is no rebound. Musculoskeletal: General: Normal range of motion. Cervical back: Neck supple. Right lower leg: Edema present. Left lower leg: Edema present. Skin: General: Skin is warm and dry. Capillary Refill: Capillary refill takes less than 2 seconds. Neurological: Mental Status: She is alert. She is disoriented. Psychiatric: Mood and Affect: Mood normal. DATA: CBC: Recent Labs 02/21/24 1124 WBC 15.2* RBC 3.51* HGB 10.0* HCT 31.3* MCV 89.2 RDW 15.8* PLT 201 BMP: Recent Labs 02/21/24 1124 NA 134* K 4.3 CL 98 CO2 32* BUN 44* CREATININE 1.29* GLUCOSE 148* CALCIUM 8.7 ANIONGAP 4 LIVER PROFILE: Recent Labs 02/21/24 1124 AST 21 ALT 19 BILITOT 0.6 ALKPHOS 78 PROT 5.7* PT/INR: Recent Labs 02/21/24 1124 PROTIME 10.5 INR 1.0 CARDIAC ENZYMES: Recent Labs 02/21/24 1124 02/21/24 1535 TROPONINI 0.047* 0.049* Procalcitonin: No results found for: PROCAL Urine Culture: No results found for this or any previous visit. COVID-19 PCR: No results for input(s): COVID19 in the last 72 hours. I reviewed: [x] laboratory results [x] radiographic results At the time of today's encounter. Pt was advised of the results. Assessment Altered mental status Febrile illness Sphenoid sinusitis Leukocytosis Demand ischemia Chronic respiratory failure HTN DM2 Anemia HFpEF COPD Obesity Plan I discussed management with the ED clinician and agree with the need for hospitalization, monitor on telemetry, IV antibiotics, follow up cx's, prn seroquel, Geriatrics evaluation, PT/OT/MAMMOGRAPHY TECHNICIAN, I/Os and daily weights, oxgyen, aerosols. review home meds and continue as appropriate, oxygen, discharge plannin (more content not included)... [facility] 02-21-2024 History and physical note Images from the original note were not included. Attending History and Physical Admit Date: 02/21/2024 PCP: Lucy Quick CHIEF COMPLAINT: confusion Reason for Admission: altered mental status History Obtained From: patient/chart HISTORY OF PRESENT ILLNESS: Kimberly is a 68 y.o. female with past medical history below who presents with chief complaint listed above. She had altered mental status and reported fevers. She was originally seen and was going to be discharged but her confusion worsened and decision was made for admission. No cp, sob, cough, n/v, palpitations. She is on oxygen at home. Will admit for further evaluation and management. Seen and examined in the ED. Past Medical History: Past Medical History: Diagnosis Date CHF (congestive heart failure) ([facility]) COPD (chronic obstructive pulmonary disease) ([facility]) Diabetes mellitus ([facility]) Past Surgical History: Past Surgical History: Procedure Laterality Date CHOLECYSTECTOMY COLONOSCOPY throat biopsy Social History: Social History Socioeconomic History Marital status: Spouse name: Not on file Number of children: Not on file Years of education: Not on file Highest education level: Not on file Occupational History Not on file Tobacco Use Smoking status: Former Smokeless tobacco: Never Substance and Sexual Activity Alcohol use: Not on file Drug use: Not on file Sexual activity: Not on file Other Topics Concern Not on file Social History Narrative Home with daughter Social Determinants of Health Financial Resource Strain: Not on file Food Insecurity: Not on file Transportation Needs: Not on file Physical Activity: Not on file Stress: Not on file Social Connections: Not on file Intimate Partner Violence: Not on file Housing Stability: Not on file Family History: No family history on file. Medications Prior to Admission: No current facility-administered medications on file prior to encounter. No current outpatient medications on file prior to encounter. Allergies: Allergies Allergen Reactions Dulaglutide Empagliflozin Hydromorphone Metformin Morphine Ondansetron Penicillins REVIEW OF SYSTEMS: As per HPI otherwise 10 system review is unremarkable. Vitals: BP (!) 138/95 Pulse (!) 114 Temp 36.9 C (98.4 F) (Oral) Resp 16 Wt 294 lb (133 kg) SpO2 100% BMI 48.92 kg/m BMI Classification: Morbidly Obese (>40.0) Pulse Ox: SpO2 Av.3 % Min: 89 % Max: 100 % Supplemental O2: PHYSICAL EXAM: Physical Exam Vitals and nursing note reviewed. Constitutional: General: She is not in acute distress. Appearance: She is obese. HENT: Head: Normocephalic and atraumatic. Mouth/Throat: Pharynx: Oropharynx is clear. Eyes: Extraocular Movements: Extraocular movements intact. Pupils: Pupils are equal, round, and reactive to light. Cardiovascular: Rate and Rhythm: Tachycardia present. Rhythm irregular. Pulses: Normal pulses. Heart sounds: Murmur heard. Pulmonary: Effort: Pulmonary effort is normal. Comments: Coarse breath sounds bilaterally Abdominal: General: Bowel sounds are normal. There is no distension. Palpations: Abdomen is soft. Tenderness: There is no abdominal tenderness. There is no rebound. Musculoskeletal: General: Normal range of motion. Cervical back: Neck supple. Right lower leg: Edema present. Left lower leg: Edema present. Skin: General: Skin is warm and dry. Capillary Refill: Capillary refill takes less than 2 seconds. Neurological: Mental Status: She is alert. She is disoriented. Psychiatric: Mood and Affect: Mood normal. DATA: CBC: Recent Labs 02/21/24 1124 WBC 15.2* RBC 3.51* HGB 10.0* HCT 31.3* MCV 89.2 RDW 15.8* PLT 201 BMP: Recent Labs 02/21/24 1124 NA 134* K 4.3 CL 98 CO2 32* BUN 44* CREATININE 1.29* GLUCOSE 148* CALCIUM 8.7 ANIONGAP 4 LIVER PROFILE: Recent Labs 02/21/24 1124 AST 21 ALT 19 BILITOT 0.6 ALKPHOS 78 PROT 5.7* PT/INR: Recent Labs 02/21/24 1124 PROTIME 10.5 INR 1.0 CARDIAC ENZYMES: Recent Labs 02/21/24 1124 02/21/24 1535 TROPONINI 0.047* 0.049* Procalcitonin: No results found for: PROCAL Urine Culture: No results found for this or any previous visit. COVID-19 PCR: No results for input(s): COVID19 in the last 72 hours. I reviewed: [x] laboratory results [x] radiographic results At the time of today's encounter. Pt was advised of the results. Assessment Altered mental status Febrile illness Sphenoid sinusitis Leukocytosis Demand ischemia Chronic respiratory failure HTN DM2 Anemia HFpEF COPD Obesity Plan I discussed management with the ED clinician and agree with the need for hospitalization, monitor on telemetry, IV antibiotics, follow up cx's, prn seroquel, Geriatrics evaluation, PT/OT/MAMMOGRAPHY TECHNICIAN, I/Os and daily weights, oxgyen, aerosols. review home meds and continue as appropriate, oxygen, discharge planning, see admission orders. - am labs, replace lytes prn - PT/OT/CM/SW - delirium precautions: increase activity - DVT prophylaxis: enoxaparin and encourage ambulation Advance Directive: No Order Anticipated Discharge - Date - 02/22-02/24 - Location - Home with Home Health Care vs SNF - Pending the following - clinical improvement, completion of work up and when OK with consultants Total time spent (which include face to face and non face to face encounters) : 61 minutes. Toxic drug monitoring/narrow therapeutic index drug monitoring : # Drug name : # Route administered : # Method of monitoring : Extended Emergency Contact Information Primary Emergency Contact: Alexandro Cote Mobile Relation: Daughter Preferred language: M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 SHMUEL TREVINO MD Division of Hospitalist Medicine [facility] documented in this encounter [facility] 08-11-2023 Note HNO ID: [id number] Author: Note, Interface Service: ? Author Type: ? Type: Progress Notes Filed: 08/11/2023 5:09 AM Note Text: Epic Scheduled Downtime: 08/11/2023 1:00:00 AM to 08/11/2023 1:28:00 AM [facility] 05-25-2023 Miscellaneous Notes Called and left VM regarding consult documented in this encounter [facility] 05-10-2023 Miscellaneous Notes Left voicemail advising patient to have new provider to send Rx to pharmacy. DARIEL ZHONG LPN May 10, 2023 4:27 PM documented in this encounter [facility] 04-26-2023 Miscellaneous Notes Pt has new pcp. Agustin Barahona APRN.TOUR ACTOR Deny has new pcp Vy Meek LPN documented in this encounter [facility] 03-09-2023 Miscellaneous Notes The [facility] has reached out to the patient with no response. Therefore, this is considered a deferral of [facility] services at this time. documented in this encounter [facility] 02-22-2023 Miscellaneous Notes Patient was discharged from [facility] 01-17-23 with an order to schedule with the [facility] Failure [facility]. The Clinic reached out by phone with no contact. A letter was mailed to the patient asking them to contact the Clinic to schedule an appointment. documented in this encounter [facility] 02-15-2023 Note HNO ID: [id number] Author: Dianna Zuniga RN Service: Nursing Author Type: Registered Nurse Type: Progress Notes Filed: 02/15/2023 4:32 PM Note Text: Report called to Yessica @ [facility]. [facility] 02-15-2023 Note [facility] 02-14-2023 Note [facility] 02-13-2023 Note [facility] 02-13-2023 Note [facility] 02-12-2023 Note [facility] 02-12-2023 Note [facility] 02-11-2023 History of Past i llness Narrative Problem Noted Date Resolved Date Hallucination 02/11/2023 02/15/2023 Bacteremia 10/12/2021 12/19/2021 Overview: Last Assessment & Plan: - Blood and urine cx + for E. Coli - Improving, continue on planned antibiotic course: Cephalixin 1000 mg q8h through 10/15 - Afebrile, denies fever or chills on exam today Neuropathy 10/12/2021 12/19/2021 Overview: Last Assessment & Plan: - BLE neuropathy - Continue Lyrica 75 mg BID NSTEMI (non-ST elevated myocardial infarction) 0 02/06/2021 02/09/2021 Morbid obesity due to excess calories 11/30/2020 12/19/2021 Acute kidney injury superimposed on chronic kidn ey disease 11/30/2020 12/19/2021 CHF, acute on chronic 11/28/2020 08/26/2021 Lower extremity cellulitis 11/28/202012/19 Present for a month 10/17/2020 08/26/2021 Pneumonia due to COVID-19 virus 10/13/2020 08/26/2021 Heart disease (organic) 05/31/2012 08/26/20 21 Dyspnea 05/31/2012 12/19/2021 documented as of this encounter (statuses as of 02/22/2023) [facility]04-16-2023 History of Past illness Narrative* Problem Noted Date Resolved Date Hallucination 02/11/2023 02/15/2023 Bacteremia 10/12/2021 12/19/2021 Overview: Last Assessment & Plan: - Blood and urine cx + for E. Coli - Improving, continue on planned antibiotic course: Cephalixin 1000 mg q8h through 10/15 - Afebrile, denies fever or chills on exam today Neuropathy 10/12/2021 12/19/2021 Overview: Last Assessment & Plan: - BLE neuropathy - Continue Lyrica 75 mg BID NSTEMI (non-ST elevated myocardial infarction) 0 02/06/2021 02/09/2021 Morbid obesity due to excess calories 11/30/2020 12/19/2021 Acute kidney injury superimposed on chronic kidn ey disease 11/30/2020 12/19/2021 CHF, acute on chronic 11/28/2020 08/26/2021 Lower extremity cellulitis 11/28/202012/19 Present for a month 10/17/2020 08/26/2021 Pneumonia due to COVID-19 virus 10/13/2020 08/26/2021 Heart disease (organic) 05/31/2012 08/26/20 21 Dyspnea 05/31/2012 12/19/2021 documented as of this encounter (statuses as of 03/02/2023) [facility] History of Past illness Narrative* Problem Noted Date Resolved Date Hallucination 02/11/2023 02/15/2023 Bacteremia 10/12/2021 12/19/2021 Overview: Last Assessment & Plan: - Blood and urine cx + for E. Coli - Improving, continue on planned antibiotic course: Cephalixin 1000 mg q8h through 10/15 - Afebrile, denies fever or chills on exam today Neuropathy 10/12/2021 12/19/2021 Overview: Last Assessment & Plan: - BLE neuropathy - Continue Lyrica 75 mg BID NSTEMI (non-ST elevated myocardial infarction) 0 02/06/2021 02/09/2021 Morbid obesity due to excess calories 11/30/2020 12/19/2021 Acute kidney injury superimposed on chronic kidn ey disease 11/30/2020 12/19/2021 CHF, acute on chronic 11/28/2020 08/26/2021 Lower extremity cellulitis 11/28/202012/19 Present for a month 10/17/2020 08/26/2021 Pneumonia due to COVID-19 virus 10/13/2020 08/26/2021 Heart disease (organic) 05/31/2012 08/26/20 21 Dyspnea 05/31/2012 12/19/2021 documented as of this encounter (statuses as of 03/09/2023) [facility] History of Past illness Narrative* Problem Noted Date Resolved Date Hallucination 02/11/2023 02/15/2023 Bacteremia 10/12/2021 12/19/2021 Overview: Last Assessment & Plan: - Blood and urine cx + for E. Coli - Improving, continue on planned antibiotic course: Cephalixin 1000 mg q8h through 10/15 - Afebrile, denies fever or chills on exam today Neuropathy 10/12/2021 12/19/2021 Overview: Last Assessment & Plan: - BLE neuropathy - Continue Lyrica 75 mg BID NSTEMI (non-ST elevated myocardial infarction) 0 02/06/2021 02/09/2021 Morbid obesity due to excess calories 11/30/2020 12/19/2021 Acute kidney injury superimposed on chronic kidn ey disease 11/30/2020 12/19/2021 CHF, acute on chronic 11/28/2020 08/26/2021 Lower extremity cellulitis 11/28/202012/19 Present for a month 10/17/2020 08/26/2021 Pneumonia due to COVID-19 virus 10/13/2020 08/26/2021 Heart disease (organic) 05/31/2012 08/26/20 21 Dyspnea 05/31/2012 12/19/2021 documented as of this encounter (statuses as of 04/27/2023) [facility] History of Past illness Narrative* Problem Noted Date Diagnosed Date Resolved Date Hallucination 02/11/2023 02/15/2023 Bacteremia 10/12/2021 12/19/2021 Overview: Last Assessment & Plan: - Blood and urine cx + for E. Coli - Improving, continue on planned antibiotic course: Cephalixin 1000 mg q8h through 10/15 - Afebrile, denies fever or chills on exam today Neuropathy 10/12/2021 12/19/2021 Overview: Last Assessment & Plan: - BLE neuropathy - Continue Lyrica 75 mg BID NSTEMI (non-ST elevated myoc ardial infarction) 02/06/2021 02/09/2021 Morbid obesity due to excess calories 11/30/2020 12/19/2021 Acute kidney injury superimp osed on chronic kidney disease 11/30/2020 12/19/2021 CHF, acute on chronic 11/28/20202020 Lower extremity cellulitis 11/28/2020 0 12/19/2021 Present for a month 10/17/2020 08/26/20 Pneumonia due to COVID-19 virus 10/13/2020 08/26/2021 Heart disease (organic) 05/31/201207/30 Dyspnea 05/31/2012 12/19/2021 documented as of this encounter (statuses as of 05/10/2023) [facility] History of Past illness Narrative* Problem Noted Date Diagnosed Date Resolved Date Hallucination 02/11/2023 02/15/2023 Bacteremia 10/12/2021 12/19/2021 Overview: Last Assessment & Plan: - Blood and urine cx + for E. Coli - Improving, continue on planned antibiotic course: Cephalixin 1000 mg q8h through 10/15 - Afebrile, denies fever or chills on exam today Neuropathy 10/12/2021 12/19/2021 Overview: Last Assessment & Plan: - BLE neuropathy - Continue Lyrica 75 mg BID NSTEMI (non-ST elevated myoc ardial infarction) 02/06/2021 02/09/2021 Morbid obesity due to excess calories 11/30/2020 12/19/2021 Acute kidney injury superimp osed on chronic kidney disease 11/30/2020 12/19/2021 CHF, acute on chronic 11/28/20202020 Lower extremity cellulitis 11/28/2020 0 12/19/2021 Present for a month 10/17/2020 08/26/20 Pneumonia due to COVID-19 virus 10/13/2020 08/26/2021 Heart disease (organic) 05/31/201207/30 Dyspnea 05/31/2012 12/19/2021 documented as of this encounter (statuses as of 05/25/2023) [facility]04-11-2023 [facility]04-11-2023 History of Present illness Narrative* Saniya Coleman RN - 02/06/2023 2:01 PM EDT Spoke to social media project manager at [facility]. Patient is now a permanent resident under the care of facility physician Dr. Lucy Quick. [facility] chart updated to reflect this change. Saniya Coleman RN February 06, 2023 2:03 PM documented in [facility]04-03-2023 History of Present illness Narrative* Vy Meek LPN - 01/29/2023 3:41 PM EDT ED Follow Up: Patient discharged from [facility] ED on 01/28/23. Left message for patient to call office to schedule ed follow up appointment. Vy Meek LPN documented in this encounterW[facility] Miscellaneous Notes* Telephone Encounter - Merissa Browne LPN - 01/26/2023 7:20 AM EDT Patient's request for medication is as follows: Requested Prescriptions Pending Prescriptions Disp Refills ezetimibe (ZETIA) 10 mg tablet [Pharmacy Med Name: Ezetimibe 10mg Tablet] 30 tablet 1 Sig: Take 1 tablet by mouth every day Last seen in office on 02/27/2022. Patient seen in hospital on 08/22/2022. Patient missed follow ups scheduled for 08/29/2022 and 10/19/2022. Message sent to clerical requesting they call patient with over due appointment. Prescription(s) as above. Please process accordingly. Merissa Browne LPN documented in this encounterW[facility]23 Miscellaneous Notes* Telephone Encounter - Solange Arenas RN - 01/17/2023 1:32 PM EDT Patient was discharged from [facility] on 01/16/23 with an order to schedule with the [facility] Failure [facility]. However, the patient was then immediately admitted to a senior care facility. A letter was mailed to the patient asking her to contact the Clinic upon discharge from the facility. documented in this [facility]23 [facility]03-21-2023 [facility]03-20-2023 [facility]03-20-2023 [facility]03-20-2023 History of Present illness Narrative* Saniya Coleman RN - 01/15/2023 3:15 PM EDT [facility] Transitional Care Management (TCM) Inpatient Patient Visit/Outreach Provider Action/FYI Will be discharged back to [facility] at discharge Anticipate patient will be permanent resident Saniya Coleman RN January 15, 2023 3:18 PM Patient Admitted To [facility] on 01/12/2023 Patient admitted for CHF Contact Made with Patient at bedside Yes, room 4225-1 Patient identified by name and date of . Others Present at bedside No. Patient introduced to the transitional care management team; explained our purpose, mission, and provided hours of operation, M-F 8-4 PM, excluding holidays. We provided them with resources and our contact information. Resources: Primary Care Provider First Card, Transitional Care Management Card, eClarity Flyer, TCMRN business Card, given Patient educated on importance of primary care provider follow up visit as well as specialty provider follow up visits as indicated. Scheduled PCP follow up appointment No Discharge plans appear to be other than Home or Home Health Care Does patient have any concerns or barriers to returning home? Yes-unable to care for self Health leads screening tool questions: Do you often feel you lack companionship? No Do you ever need help reading or understanding hospital materials? No In the last 12 months, have you changed how you take medications to save money? No In the past 12 months, has lack of transportation kept you from medical appointments, work, or getting things you need like food, or supplies? No In the last 12 months, did you ever eat less than you felt you should because there wasn't enough money for food? No During the winter, do you anticipate having a problem paying your heating bill? No In the next 2 months, are you worried you might not have stable housing? No If needs identified: Would you like to receive assistance with any of these needs after discharge? No Resources/Referrals None Advanced Directives: Declined Living Will: Declined Meds to bed initiated No Educated patient on post discharge expectations, contingency management, and post-discharge programs available to them. Encouraged patient to refer to and read the hospital discharge summary again once they are home. HRTIC N/A If Yes, Confirm demographics, where patient will reside at discharge. TCM RN to do referral upon discharge. We have your contact number as [phone] , is this the best number to contact you? Yes Address: [address] [place] [address] , is this where you will be staying after discharge? No, [facility] Do you give us permission to speak to anyone else if you are unavailable to speak to us? Yes Alexandro Cote (daughter) [phone] Saniya Coleman RN January 15, 2023 3:17 PM documented in this encounterW[facility]03-[facility]-2023 Miscellaneous Notes* Telephone Encounter - Kerry Parr Sec - 01/15/2023 11:18 AM EDT The patient was discharged from [facility] 10-28-22 with an order to schedule with the Heart Failure Clinic. The Clinic reached out to the patient with no response. Therefore, this is considered a deferralof the Clinic's services at this time. documented in this encounterW[facility]03-19-2023 [facility]03-18-2023 [facility]03-14-2023 Miscellaneous Notes * Telephone Encounter - Val Bee MA - 01/09/2023 2:48 PM EDT Left voicemail on patient's home phone for return call. Val Bee MA * Telephone Encounter - Agustin Barahona APRN.CNP - 01/08/2023 3:53 PM EDT Pt needs to be seen for refills. Agustin Barahona APRN.HEATHER * Telephone Encounter - Kamille Hall LPN - 01/08/2023 2:54 PM EDT Patient/Patient's Pharmacy is requesting the following refill. Patient's last appointment: 09/29/22 virtual with Agustin Barahona -07/05/22 Virtual with Agustin Barahona-06/23/22 [facility]. Next appointment: None . Requested Prescriptions Pending Prescriptions Disp Refills pregabalin (LYRICA) 75 mg capsule [Pharmacy Med Name: Pregabalin 75mg Capsule] 60 capsule 5 Sig: Take 1 capsule by mouth twice daily Patient Phone numbers: [phone] (home) Request is for script(s) to be escript to pharmacy. Kamille Hall LPN documented in this encounterW[facility]03-10-2023 Miscellaneous Notes* Telephone Encounter - Sheree Kan RN - 01/05/2023 1:59 PM EST Patient's request for medication is as follows: Requested Prescriptions Pending Prescriptions Disp Refills ranolazine SR (RANEXA) 1,000 mg tab ER 12 hr 180 tablet 1 Sig: Take 1 tablet by mouth twice daily. Last OV dated 02/27/[address] Silva, left message on patient's voicemail requesting a patient calland schedule her overdue follow up. Prescription(s) as above. Please process accordingly. Sheree Kan RN documented in this encounterW[facility]02-26-2023 Miscellaneous Notes* Telephone Encounter - Agustin Barahona APRN.CNP - 12/24/2022 9:30 PM EST 30 tablets with 3 refills sent. Pt will need to be seen in person to continue to get refills. Agustin Barahona APRN.HEATHER documented in this encounterWright-[facility]02-21-2023 [facility]02-21-2023 Miscellaneous Notes* Telephone Encounter - Kerry Rogers - 12/19/2022 10:53 AM EST Patient was discharged from [facility] 10-28-22 with an order to schedule with the Heart Failure Clinic. The Clinic reached out by phone with no contact. A letter was mailed to the patient asking them to contact the Clinic to schedule an appointment. documented in this encounterW[facility]02-09-2023 History of Present illness Narrative* ROMEL Robb - 12/07/2022 11:53 AM EST PRIMARY CARE SOCIAL WORK PROGRESS NOTE Provider Action / FYI PCP Action FYI SERVICE DATE: December 07, 2022 SERVICE TIME: 11:54 AM (Patient has been identified by name and date of ) REASON FOR CONTACT: Transition of Care Mode of Outreach: Chart review Progress Note: PCSW received and reviewed order. Patient is currently in a SNF. PCSW will defer working with this patient until she is discharged back home. Please consult PCSW again when patient returns home, if needed. INTERVENTION: Defers assessment at this time Follow Up Provided SNF Placement - External Resource Time Spent:: 45 minutes SIGNATURE: ROMEL Robb PATIENT NAME: Kimberly Patel DATE: December 07, 2022 TIME: 11:54 AM CONTACT #: [phone] documented in this encounterWright-[facility]02-07-2023 [facility]02-01-2023 Miscellaneous Notes* Telephone Encounter - Tea Riggs LPN - 11/29/2022 2:20 PM EST Patient/Patient's Pharmacy is requesting the following refill. Patient's last appointment: 2022 . Next appointment: not scheduled . Requested Prescriptions Pending Prescriptions Disp Refills hydrOXYzine HCl (ATARAX) 25 mg tablet [Pharmacy Med Name: HYDROXYZINE HCL 25 MG TABLET] 90 tablet 0 Sig: TAKE 1 TABLET BY MOUTH THREE TIMES DAILY NEEDED FOR ITCHING/RASH (FOR ITCHING). Patient Phone numbers: [phone] (home) Request is for script(s) to be escript to pharmacy. Tea Riggs LPN documented in this encounterWright-[facility]01-23-2023 Miscellaneous Notes* Telephone Encounter - Kerry Rogers - 11/20/2022 9:26 AM EST Patient was discharged from [facility] 11-17-22 with an order to schedule with the Heart Failure Clinic. However, the patient was then immediately admitted to a senior care facility. A letter was mailedto the patient asking them to contact the Clinic upon discharge from the facility. Kerry Parr Sec documented in this encounterWright-[facility]01-23-2023 [facility]01-23-2023 History of Present illness Narrative* Saniya Coleman RN - 11/20/2022 7:24 AM EST TRANSITION CARE MANAGEMENT (TCM) /DISCHARGE TO POST ACUTE FACILITY POST ACUTE TRANSFER SUMMARY: -Pt discharged from [facility] on 11/17/2022 -Post Acute Facility Admitted to [facility] -Admitted for: Weakness Office PCC to follow at discharge Saniya Coleman RN November 20, 2022 7:26 AM documented in this encounterWright-Patterson [facility]01-20-2023 [facility]01-20-2023 [facility]01-19-2023 [facility]01-19-2023 NoteHNO ID: [id number] Author: Lindsay Rod RN Service: Nursing Author Type: Registered Nurse Type: Nursing Progress Note Filed: 11/16/2022 4:17 AM Note Text: Patient states she does not want to be woke up during the night.[facility]01-18-2023 [facility]01-17-2023 [facility]01-17-2023 [facility]01-17-2023 Note [facility]01-16-2023 [facility]01[facility]12-2023 [facility]01-12-2023 Miscellaneous Notes * Telephone Encounter - Davis Loving MA - 11/09/2022 4:06 PM EST Patient advised of message. Davis Loving MA * Telephone Encounter - Agustin Barahona APRN.HEATHER - 11/09/2022 3:44 PM EST Agreeable to follow pt for home care. Agustin Barahona APRN.CNP * Telephone Encounter - Vanessa Patel - 11/09/2022 11:26 AM EST Chica from [facility] called ([phone]) stating pt is being discharged from a skilled facility and needs verbal orders. Requesting home care senior care, physical therapy and occupational therapy. Please advise. Vanessa Patel documented in this encounterWright-[facility]01-12-2023 [facility]01-12-2023 History of Present illness Narrative* Agustin Barahona APRN.CNP - 11/09/2022 3:46 PM EST Phone visits are inappropriate for this pt. I filled out intermittent FMLA paperwork for her daughter to be able to take her to apts. Pt and daughter need to be compliant with office visit to maximize pt care. Referral for social work placed. Agustin Barahona APRN.CNP * Krupa Aparicio RN - 11/09/2022 1:47 PM EST TRANSITIONAL CARE MANAGEMENT (TCM) COMMUNITY MONITORING PROGRAM - ERNST Provider Action/FYI: Patient discharged from [facility] on 11/08/22. Patient declines reviewing medications. States that she is not aware of needing any refills or medication changes. Patient reports that she is unable to stand and that she is very weak. Patient noted to have Pressure Injury on admission. Patient reports that this is improving however she has multiple blisters. Patient has referral for [facility] SN, PT, OT. Can an order for Social Work be obtained? Unclear if patient is watching her grandchildren during the day or if she is able to care for herself. Patient is alone while her daughter is at work through the day. Patient has declined Home Care Services in the past due due to inability to answer the door and dogs in home. Patient reports that shewill allow home care to come to home this time. Attempted to schedule appointment for the patient, she declines an in person appointment and states that she can't come into the office right now. SN scheduled telephone appointment for 11/10/22 at 8 AM during conversation. Patient then declined appointment due to feeling nauseated. Patient has an appointment scheduled for 11/23, she would like to keep that. Discussed Medical Care at Home with patient, patient reports that she had Dr Deng in the past and that her daughter had her change providers. Patient reminded to call CHF clinic to schedule appointment, unclear if patient will. Patient is unable to weigh herself due to inability to stand on scale. Patient reports that her swelling is down and that she was down 11 lbs from previous weight. Patient reports that her blood sugars have improved from when she was hospitalized. Did not relay any results to SN. SUMMARY: Pt discharged from [facility] on 11/08/22. Admitted for: CHF, UTI Contact made with patient: Yes Hi my name is Krupa Aparicio RN and I am calling from the [facility] on behalf of your PCP, Agustin Barahona APRN.TOUR ACTOR I understand you were recently in the hospital so I am calling to check in with you to ensure you are feeling well now that you re home. Do you mind if I ask you a few questions related to your hospital stay and well-being Yes Contact with patient post discharge, spoke to patient. Patient identified by name and . Do you feel your health is BETTER, WORSE, or the SAME since leaving the hospital? Better ACTION TAKEN: Patient indicated symptoms are better or same, no action required. Continue outreach. MEDICATIONS: Many patients have questions or concerns about their medications once they are home. Do you have any questions about taking your medications or which medication you should be on? No Do you need any medication refills at this time, including any of the medications you might take only when needed? No ACTION TAKEN: No action required For RNs or Pharmacy completing outreach ONLY, was a medication review completed? No, Patient declines SOCIAL: We would like to make sure you have what you need so that your basics needs are met - including your personal safety, food, housing and medications. Would you like to speak with a social work garment steamer to help give you support for any of these needs? No It can be normal to feel anxious or down during a time like this. Would you like to talk to a mental health professional about how you have been feeling? No ACTION TAKEN: No action taken DISCHARGE INTRUCTIONS: Your discharge instructions / After Visit Summary (AVS) are important in guiding you through the recovery process. Do you have any questions related to your discharge instructions? No Do you have all the necessary equipment and supplies at home? Yes ACTION TAKEN: No action required Thank you for talking with me today. I would like to help you schedule a hospital follow-up virtualor telephone visit with your PCP. This is a great way for you to connect with your provider to ensure you have safely transitioned home. If you are agreeable, I will send your request to a senior master scheduler who will contact and assist you with that appointment. This will give you an opportunity to ask any questions or address any concerns you may have with your PCP. Inform the patient that if they have any questions or concerns prior to that appointment, to call their PCP's office right away. ACTION TAKEN: No action required, patient already has an appointment scheduled. Your doctor would like us to remind you of the recommendations regarding the coronavirus (Covid19) outbreak: Avoid public places as much as possible. Avoid close contact (within 6 feet) with others you don't live with, especially if they are sick. Stay home if you are sick. Wash your hands regularly for at least 20 seconds with soap and water. Wear a cloth mask in public places to help reduce community spread. Do not go to your Doctor's office unless instructed to do so. For any non- emergency symptoms, call your Doctor's office to get instructions on how to manage (we might recommend a telephone or virtualvisit). For emergency symptoms, proceed to Emergency Department as usual but inform them of cough and fever symptoms LALA if present (or call on the way if possible). Krupa Aparicio RN documented in this encounterWright[facility]01-05-2023 Miscellaneous Notes* Telephone Encounter - Jenna Gudino MA - 11/02/2022 12:31 PM EST Patient/Patient's Pharmacy is requesting the following refill. Patient's last appointment:09/29/22 . Next appointment:none . Requested Prescriptions Pending Prescriptions Disp Refills hydrOXYzine HCl (ATARAX) 25 mg tablet [Pharmacy Med Name: HYDROXYZINE HCL 25 MG TABLET] 90 tablet 0 Sig: TAKE 1 TABLET BY MOUTH THREE TIMES DAILY NEEDED FOR ITCHING/RASH (FOR ITCHING). Patient Phone numbers: [phone] (home) Request is for script(s) to be escript to pharmacy. Jenna Gudino MA documented in this encounterWright-Patterson [facility]01-03-2023 [facility]01-03-2023 Miscellaneous Notes* Telephone Encounter - Kerry Rogers - 10/31/2022 9:25 AM EST Patient was discharged from [facility] 10-28-22 with an order to schedule with the Heart Failure Clinic. However, the patient was then immediately admitted to a senior care facility. A letter was mailed to the patient asking them to contact the Clinic upon discharge from the facility. Kerry Rogers documented in this encounterWright-Patterson [facility]12-30-2022 [facility]12-30-2022 NoteHNO ID: [id number] Author: Evelia Asher RN Service: Nursing Author Type: Registered Nurse Type: Nursing Progress Note Filed: 10/27/2022 4:14 AM Note Text: Nurse attempted to draw labs. Patient refused. LIP notified. Will continue to monitor.[facility]12-29-2022 [facility]12-28-2022 [facility]12-27-2022 [facility]12-26-2022 [facility]12-25-2022 Note [facility]12[facility]24-[facility]12-21-2022 [facility]12-20-2022 [facility]12-20-2022 [facility]12-09-2022 Miscellaneous Notes* Telephone Encounter - Tea Riggs LPN - 10/06/2022 3:19 PM EST Patient/Patient's Pharmacy is requesting the following refill. Patient's last appointment: 2022 . Next appointment: not scheduled. Requested Prescriptions Pending Prescriptions Disp Refills hydrOXYzine HCl (ATARAX) 25 mg tablet [Pharmacy Med Name: HYDROXYZINE HCL 25 MG TABLET] 90 tablet 0 Sig: TAKE 1 TABLET BY MOUTH THREE TIMES DAILY NEEDED FOR ITCHING/RASH (FOR ITCHING). Patient Phone numbers: [phone] (home) Request is for script(s) to be escript to pharmacy. Tea Riggs LPN documented in this encounterWright-Patterson [facility] Center12-09-2022 Miscellaneous Notes* Telephone Encounter - Jenna Gudino MA - 10/06/2022 9:28 AM EST Patient/Patient's Pharmacy is requesting the following refill. Patient's last appointment: 08/16/22 . Next appointment: none. Requested Prescriptions Pending Prescriptions Disp Refills metoprolol succinate ER (TOPROL XL) 25 mg 24 hr tablet [Pharmacy Med Name: Metoprolol Succinate 25mg Extended-Release Tablet] 30 tablet 11 Sig: Take 1 tablet by mouth every day Patient Phone numbers: [phone] (home) Request is for script(s) to be escript to pharmacy. Jenna Gudino MA documented in this encounterWright-Patterson [facility] Center12-07-2022 Miscellaneous Notes* Telephone Encounter - Arelis Harper - 10/04/2022 10:11 AM EST FMLA forms completed and emailed to daughterAlexandro at [email or web address]. Called and left message on Alexandro's phone regarding above. Mgraening * Telephone Encounter - Jenna Gudino MA - 10/03/2022 5:05 PM EST Papers were placed on Arelis desk because she does those.I will forward this to Arelis. Jenna Gudino MA * Telephone Encounter - Haley Cook - 10/03/2022 3:48 PM EST PT's daughter dropped off paperwork for FMLA. Put on [employer] desk. Please advise Haley Cook documented in this encounterWright-Patterson [facility] Center12-02-2022 [facility]12-02-2022 Instructions* Patient Instructions* Agustin Barahona APRN.CNP - 09/29/2022 8:32 AM EST 1-make apts with dermatology, urology, nephrology, cardiology and HF clinic. Keep these apts. documented in this encounterWright-Patterson [facility] Center12-02-2022 History of Present illness Narrative* Agustin Barahona APRN.CNP - 09/29/2022 8:00 AM EST AMBULATORY TELEPHONE VISIT Kimberly Patel has consented to this telephone encounter. Persons Present: patient Chief Complaint/Reason: Medication refill HPI: Patient presents to follow-up for medication refills. Patient has a significant history of type 2 diabetes, heart failure, CAD, hyperlipidemia, hypertension, obstructive sleep apnea, severe obesity, bullous rash, CKD stage III, recurrent UTI, COPD, bipolar and constipation. Patient is requesting refill of her Hiprex which was started by urology when she was last hospitalized. Patient was supposed to follow-up with urology for further evaluation and treatment regarding her chronic UTIs. Patient lacks follow-up with her specialists due to inconveniencing her daughter who is her main source of transportation and care. Educated patient on multiple accounts of the importance of establishing with specialist to help prevent hospitalization and further worsening of conditions. Patient follows with cardiology, heart failure clinic, dermatology. Patient does not follow up as directed. Since patient was hospitalized at the end of July she was supposed to establish with urology and follow-up with heart failure clinic and cardiology. Patient has failed to follow-up with those providers in office. Educated patient extensively on the importance of following up with these chronic conditions specialist to help maximize her care. Educated patient on the severity to which lack of following up appropriately can lead to hospitalizations, worsening complications, and even . Patient verbalized understanding. Discussed issues with transportation. Recommend that she reach out to her insurance company to assist with transportation on days that her daughter cannot help. Offered to fill out intermittent FMLA paperwork for her daughter to help assist patient to get to appointments. Patient states that she will have her daughter fax the paperwork over today. In regards to having her insurance company help her with transportation patient endorses that she uncomfortable leaving the home without her daughterand that leaving her home is very difficult. She states that her and her daughter have a specific way on how to get out of the house due to her lack of mobility. Patient states that no one from home care is reach out to her in regards to in-home therapy. Patient was inquiring about refills for doxycycline and steroids. These were prescribed by Dyllan Guillaume from [facility] for treatment of her bullous rash. Educated patient that she should reachout to this provider in regards to these medications. Data Reviewed: Most recent labs and imaging results. Most recent labs Most recent imaging ASSESSMENT/PLAN: 1. Recurrent UTI (urinary tract infection) - ICD9: 599.0, ICD10: N39.0 (primary diagnosis) -We will give patient 1 more refill of Hiprex. Educated patient that she needs to establish with urology and that I will no longer refill this for her due to her lack of follow-up with the specialist. -Educated patient on my concern of giving her this refill would prompt her to cancel any future appointments that she has with any specialist. Patient verbalized understanding and stated that she will make appointments and keep them. Patient verbalized understanding that I would not give her a refill moving forward in regards to this until she sees a specialist. - METHENAMINE HIPPURATE 1 GRAM TABLET 2. Bullous rash - ICD9: 782.1, ICD10: R21 -Educated patient to contact [facility] in regards to treatment for this bullous rash. To seeif they want her to continue taking antibiotic and steroids. Patient states that she has an appointment with them next month. I educated patient that she needs to reach out to them sooner since she states she is running low on these medications. 3. Stage 3b chronic kidney disease (HCC) - ICD9: 585.3, ICD10: N18.32 -Educated patient that she needs to continue following with nephrology as they direct. Educated patient that she needs to stay on torsemide and not furosemide for continuing diuresing related to her heart failure and kidney function. -Patient follows with Dr. Ramírez from nephrology. 4. Type 2 diabetes mellitus with diabetic polyneuropathy, with long-term current use of insulin ([facility]) - ICD9: 250.60, 357.2, V58.67, ICD10: E11.42, Z79.4 -Patient endorses that her blood sugars have been a little elevated due to being on the steroids. But she is combining that with changing her mealtime insulin around. Patient denies needing any refills in regards to her diabetes medication at this time. 5. Acute on chronic diastolic CHF (congestive heart failure) ([facility]) - ICD9: 428.33, 428.0, ICD10: I50.33 -Educated patient that she needs to make follow-up appointments with cardiology and heart failure clinic. -Educated patient that I see that she had an appointment with cardiology on October 19, 2022 and that she is already canceled that appointment. Patient states that she was unaware that she has canceled that appointment. -Educated patient that is not appropriate to only see heart failure clinic via phone call or virtually. That it is important for her to go in there to get weight and have someone physically look at her to determine if her heart failure is worsening. -Commended patient for keeping phone call appointments with heart failure clinic to discuss diet and symptoms related to heart failure. 6. Chronic respiratory failure with hypoxia ([facility]) - ICD9: 518.83, 799.02, ICD10: J96.11 -Patient is still on 2 L of O2 per nasal cannula at home for this. Patient is stable on this. Total Time Spent: 25 minutes Agustin Barahona APRN.HEATHER documented in this encounterWright-Patterson [facility] Center12-01-2022 Miscellaneous Notes* Telephone Encounter - Anette Lopez MA - 09/28/2022 3:16 PM EST Spoke with patient. She states she already clarified with the pharmacy that she is no longer on Lasix per nephrology. Anette Lopez MA * Telephone Encounter - Agustin Barahona APRN.CNP - 09/28/2022 12:09 PM EST Pt is on torsemide per nephrology. She should not be on furosemide and torsemide. I recommend that she reaches out to nephrology for clarification. Agustin Barahona APRN.HEATHER * Telephone Encounter - Kamille Hall LPN - 09/28/2022 9:33 AM EST Patient/Patient's Pharmacy is requesting the following refill. Patient's last appointment: 08/16/22. Next appointment: 09/29/22 . Requested Prescriptions Pending Prescriptions Disp Refills furosemide (LASIX) 20 mg tablet [Pharmacy Med Name: Furosemide 20mg Tablet] 30 tablet 11 Sig: Take 1 tablet by mouth every day Patient Phone numbers: [phone] (home) Request is for script(s) to be escript to pharmacy. Kamille Hall LPN documented in this encounterWright-Patterson Medical Center12-01-2022 Miscellaneous Notes* Telephone Encounter - Olga Salmon PA-C - 09/28/2022 9:12 AM EST Looks like she has established with a new PCP documented in this encounterWright-Patterson Medical Center11-29-2022 NoteHNO ID: [id number] Author: Agustin Barahona APRN.HEATHER Service: ? Author Type: Nurse Practitioner Type: Progress Notes Filed: 10/02/2022 5:25 PM Note Text: Pt needs to establish with urology. Agustin Barahona APRN.HEATHERMaine Medical Center11-29-2022 History of Present illness Narrative* Agustin Barahona APRN.CNP - 09/26/2022 12:21 PM EST Pt needs to establish with urology. Agustin Barahona APRN.CNP * Krupa Aparicio RN - 09/26/2022 8:13 AM EST PRIMARY CARE COORDINATION QUICK NOTE Provider Action/FYI Patient identified by name and date . TC to relay below message from provider to patient. Patient continues to state that she is unable to schedule appointments until October due to her daughter's job. I encouraged her to schedule an appointment with urology. Was able to schedule telephone appointment for 09/29 with you. Patient is concerned that she will end up back in the hospital if she is not taking hiprex. Patient unable to complete virtual visit as her daughter has smart phone. Daughter to send photo to dermatology, has not atthis time. Krupa Aparicio RN * Agustin Barahona APRN.CNP - 09/25/2022 4:50 PM EST Pt needs to establish with urology for refill of her hiprex. I gave it to her 1 time as a curtesy. She needs to stop canceling apt with specialists. I understand that she relies on her daughter for all of her care, but her chronic conditions are very complicated and need managed by the specialists. I encourage her to wait to hear back from dermatology since this is a complex issue. Agustin Barahona APRN.HEATHER * Krupa Aparicio RN - 09/25/2022 4:30 PM EST TRANSITION CARE MANAGEMENT (TCM) FOLLOW-UP NOTE Provider Action/FYI Patient requesting refill of hiprex, refill encounter sent. Patient voices concerns over area on her abdomen associated with her rash. Patient to try and send a picture to dermatology to review, has F/U appointment 10/16/22. Patient may upload to my chart if unable to send to dermatology. Patient reports an open area that is painful. Patient denies fever, chills, or foul smelling drainage. Krupa Aparicio RN Patient identified by name and date of : YES Spoke to patient Summary: Patient called into SN and left message requesting refill of hiprex. Patient states that she has anarea on her abdomen that she is concerned with. Patient follows with Dermatology, SN encouraged patient to contact dermatology and to see if she can send a picture of the area that she is concerned with. Patient may upload to my chart if unable to upload for the cosmetic account coordinator. Patient to follow up with cosmetic account coordinator 10/16/22. Patient continues to decline scheduling follow up appointment in the office or virtual until beginning of the year. Concerns: Area on her abdomen. Insurance Account Representative plan for next outreach: Will follow up in 2 weeks Signature Krupa Aparicio RN September 25, 2022 documented in this encounterWright-Patterson Medical Center11-29-2022 [facility]11-28-2022 [facility]11-28-2022 [facility]11-28-2022 Miscellaneous Notes* Telephone Encounter - Agustin Barahona APRN.CNP - 09/25/2022 4:55 PM EST Pt needs to follow up with urology. Agustin A Rawleigh, HAM DOCTOR.TOUR ACTOR * Telephone Encounter - Krupa Aparicio RN - 09/25/2022 4:30 PM EST Patient phones requesting refills as follows: Last office visit 08/16/22 Requested Prescriptions Pending Prescriptions Disp Refills Methenamine Hippurate (HIPREX) 1 gram tablet 60 tablet 0 Sig: Take 1 tablet by mouth twice daily. Please review and advise. Krupa Aparicio RN documented in this encounterWright-Patterson Medical Center11-21-2022 [facility]11-21-2022 [facility]11-18-2022 [facility]11-14-2022 Miscellaneous Notes* Telephone Encounter - Vickey Dumont MA - 09/11/2022 2:12 PM EST Per pts daughter the cosmetic account coordinator already has the results. Closing encounter Vickey Dumont MA * Telephone Encounter - Vickey Dumont MA - 09/11/2022 2:12 PM EST ----- Message from Agustin Barahona APRN.TOUR ACTOR sent at 09/08/2022 9:13 AM EST ----- Can we forward this result to her cosmetic account coordinator to maximize her treatment? Thank you, Agustin Barahona APRN.TOUR ACTOR documented in this encounterWright-Patterson Medical Center11-11-2022 [facility]11-11-2022 [facility]11-11-2022 [facility]11-11-2022 History of Present illness Narrative* Krupa Aparicio RN - 09/08/2022 11:47 AM EST PRIMARY CARE COORDINATION QUICK NOTE Provider Action/FYI Patient identified by name and date . TC to patient and updated on Message from Agustin Rodriguez CNP. Patient verbalized understanding. Krupa Aparicio RN * Agustin Barahona APRN.HEATHER - 09/08/2022 11:31 AM EST Pt can continue with symptoms management in terms of her cold virus. Being on steroids and an antibiotic should help prevent this from becoming bacterial. Shecan use her rescue inhaler as needed. I agree with her increasing her insulin while she is on the steroids. She should be checking her blood sugar prior to every meal so she knows how much insulin to give. Agustin Barahona APRN.HEATHER * Krupa Aparicio RN - 09/08/2022 11:03 AM EST TRANSITION CARE MANAGEMENT (TCM) FOLLOW-UP NOTE Provider Action/FYI Patient reports that she has a cold. Patient's granddaughter brought home from school. Patient has congestion, clear mucous and some wheezing noted. Denies fever or increased dyspnea. Patient followed up with dermatology, reports that she was started on doxycycline and steroids. Patient reports blood sugar reading yesterday of 303. Patient was unsure if her insulin should be adjusted while taking the steroids. Patient states that if her blood sugar is high, she will administer another 40 units of humalog and eat a snack. Patient did not yet check blood sugar today. Please advise Krupa Aparicio RN Patient identified by name and date of : YES Spoke to patient Summary: Patient called SN and left message regarding starting prednisone. Returned call. Patient followed up with dermatology this week. Reports that she was ordered doxycycline and steroids. Patient reportsthat she had a reading of 303 yesterday. Patient was unsure if she should adjust her insulin while taking the steroids. Patient did not check her blood sugar yet today. Patient expressed that she haddifficulty following a sliding scale previously. Patient states that if she does have a high reading she will administer another dose of 40 units of humalog and eat a snack. Patient states that she is usually able to improve her blood sugar by doing this. Patient noted to be congested over the phone with wheezing noted. Patient reports that her granddaughter caught a cold at school and brought home. Patient reports that she has clear mucous noted and that she is using her inhalers. Denies fever, chills or increased dyspnea. Concerns: Cold, blood sugars Insurance Account Representative plan for next outreach: Will follow up in 1 week Signature Krupa Aparicio RN September 08, 2022 documented in this encounterWright-Patterson Medical Center11-11-2022 Miscellaneous Notes* Telephone Encounter - Jenna Gudino MA - 09/08/2022 10:02 AM EST Patient/Patient's Pharmacy is requesting the following refill. Patient's last appointment: 08/16/22. Next appointment: none . Requested Prescriptions Pending Prescriptions Disp Refills hydrOXYzine HCl (ATARAX) 25 mg tablet [Pharmacy Med Name: HYDROXYZINE HCL 25 MG TABLET] 90 tablet 0 Sig: TAKE 1 TABLET BY MOUTH THREE TIMES DAILY NEEDED FOR ITCHING/RASH (FOR ITCHING). Patient Phone numbers: [phone] (home) Request is for script(s) to be escript to pharmacy. Jenna Gudino MA documented in this encounterWright-[facility]11-08-2022 [facility]11-04-2022 Miscellaneous Notes* Telephone Encounter - Nanda Sampson PA-C - 09/01/2022 4:39 PM EDT Patient can use this medication and then if needed we can change, since she already picked up no reason to change now. NANDA SAMPSON PA-C * Telephone Encounter - Val Bee MA - 09/01/2022 3:14 PM EDT Called [facility] and spoke to pharmacist and patient had already picked prescription up and paid out of pocket with discount card. Please approve or deny attached prescription. Val Bee MA * Telephone Encounter - Agustin Barahona APRN.CNP - 08/31/2022 5:07 PM EDT Please let pharmacy know that this is the recommended treatment based on pt's recent culture. I can fill out a prior auth if recommended, OR pt can utilize good RX which makes the medication $25.83. Agustin Barahona APRN.HEATHER * Telephone Encounter - Kamille Hall LPN - 08/31/2022 1:28 PM EDT Pharmacy comment: Alternative Requested:NON FORMULARY PLEASE USE FORMULARY PRODUCT. Please advise.Kamille Hall LPN documented in this encounterWright-Patterson [facility]11-04-2022 [facility]11[facility]03[facility]11[facility]03-[facility]11[facility]03-[facility]11-03-2022 Miscellaneous Notes* Telephone Encounter - Alejo Andersen - 08/31/2022 9:41 AM EDT Called pt to [facility] 6-8 wk hosp f/u-- no answer, lvm w/ appt info and sent reminder ltr to pt Alejo Andersen August 31, 2022 9:41 AM * Telephone Encounter - Tea Reis APRN.CNP - 08/30/2022 10:25 PM EDT Please make a hospital follow up appointment to be seen in 6-[address] Silva or HEAD REFRIGERATING ENGINEER for chf Thank you Tea Reis APRN.HEATHER documented in this encounterWright-Patterson [facility]11-02-2022 [facility]11-02-2022 Nurse Note* Porsha Mejia RN - 08/30/2022 2:46 PM EDT Heart Failure Clinic Telephone Visit Spoke directly with patient Yes. A phone visit was placed to educate patient on signs, symptoms, medications and diet for heart failure patients. This phone visit was conducted to prevent risk and optimize the patient's heart health. The patient is aware of the inherent limitations of a phone encounter and has consented to this remote visit. Patient was able to speak in full sentences without difficulty. New patient visit No Established patient visit Yes - last seen in 2020. This phone visit was to re- establish the patientwith the [facility]. Kimberly reported that she does not have access to transportation to come in for a office visit at this time Change in health status since discharge Yes - recent discharge for heart failure Do you have a scale to at home to weigh yourself everyday? -unable to weigh. Cannot stand long Are you weighing yourself daily and writing it down? No - see above Weight at discharge/last visit hospital discharge weight 287 08/27/22 Weight today not available Do you have any signs/symptoms? Weight gain n/a Edema - reported much better than prior to hospitalization. SOB with activity Yes - SOB at rest No SOB when lying flat No Abdominal distention No - reported any firmness to her abdomen is caused by constipation Changed in appetite No Cough Yes - attributes this to cold. Reported this to be a dry cough Do you know who to contact if you have weight gain or symptoms? - yes, reported has office number to both the [facility] and Dr. Silva (cardiology) Do you know how much weight gain in either 1 day and 7 days is important to let the HF Clinic know about? N/a - patient does not weight Do you know what other symptoms to report to the HF Clinic? Yes Medications were reviewed Yes Do you have all of your medications? - patient reported that she is out of her [place] which was prescribed a while back by pain clinic. Kimberly reported that she does have an referral to this department, but cannot schedule secondary to being reliant on her daughter to take her to multiple office visits Have you been taking your medications as directed? Yes Have you been maintaining a [id number] mg of sodium diet? No - Kimberly reported that she is on a fixedbudget and obtains food stamps. Because of this, she cannot afford the lower sodium products in the[employer] markets. She has been reliant on fast food and high processed foods because they are usually lower in gann. She has been accepted by her insurance to receive Mom's Meals. These are prepared meals that fall within the AHA guidelines of sodium per meal. She will start to receive these meals inone week. Are you reading labels? No Have you been maintaining a 2 liter (64 oz) fluid restriction? Yes Diet reviewed Yes - see above Are you exercising/active? No - minimal activity Do you have any questions/concerns? No Reviewed who to contact for questions/concerns Yes Confirmed patient has HF Clinic phone number and provider phone numbers Yes Reviewed HF Clinic hours of operation Yes Reviewed when to seek Emergency Room/911 care Yes Reviewed upcoming appointments Yes - recommendation made for her to contact her retail sales assistant to reschedule. She is waiting on her daughter to do so that will work with both of their schedules. She reported that she has Dr. Silva's office number Verbalized understanding? Yes Next visit - on an as needed basis as agreed upon patient and clinic Time spent: 30 minutes > 50% counseling and coordination of care Porsha Mejia RN August 30, 2022 2:58 PM documented in this encounterWright-Patterson [facility]11-01-2022 [facility]11-01-2022 [facility]11-01-2022 Miscellaneous Notes * Telephone Encounter - Sourav Hill - 08/29/2022 11:39 AM EDT Referral was submitted for patient via [facility] portal to: PAIN MANAGEMENT Confirmation number: [id number] Sourav Hill documented in this encounterWright-Patterson Medical Center11-01-2022 Miscellaneous Notes* Telephone Encounter - Mary Farr - 08/29/2022 11:01 AM EDT Patient/Patient's Pharmacy is requesting the following refill. Patient's last appointment: with Agustin Barahona CNP was 08/16/22. Next appointment: NONE. Requested Prescriptions Pending Prescriptions Disp Refills furosemide (LASIX) 20 mg tablet [Pharmacy Med Name: Furosemide 20mg Tablet] 30 tablet 11 Sig: Take 1 tablet by mouth every day Patient Phone numbers: [phone] (home) Request is for script(s) to be escript to pharmacy. Mary Farr documented in this encounterWright-Patterson [facility] Center10-31-2022 NoteHNO ID: [id number] Author: Agustin Barahona APRN.CNP Service: ? Author Type: Nurse Practitioner Type: Progress Notes Filed: 08/28/2022 9:53 PM Note Text: Noted. Thank you. I will place a referral for pain management then. Agustin Barahona APRN.[facility]10-31-2022 History of Present illness Narrative* Agustin Barahona APRN.CNP - 08/28/2022 9:51 PM EDT Noted. Thank you. I will place a referral for pain management then. Agustin Barahona APRN.CNP * Krupa Aparicio RN - 08/28/2022 5:21 PM EDT PRIMARY CARE COORDINATION QUICK NOTE Provider Action/FYI Patient identified by name and date . Patient clarified diabetic supplies. Patient reports that she does not need any. Patient was previously working with pharmacist with medications/ monitoring blood sugars to keep better control of this. Patient declines increasing her lyrica. Patient states that is for the pain in her feet. Patient reports that she was taking norco for back and arm pain. Patient states that she will follow up with pain management. Unclear when she will be able to schedule as her daughter provides transportation. Krupa Aparicio RN * Agustin Barahona APRN.CNP - 08/28/2022 2:56 PM EDT Which diabetic supplies is she needing. She should have enough lancets, test strips, and needles due to refills being at her pharmacy. I typically do not refill narcotics, especially due to her respiratory issues. I will be willing toincrease her lyrica to 150mg twice a day and refer her to pain management. Please let me know if she is agreeable to this. Agustin Barahona APRN.HEATHER * Krupa Aparicio RN - 08/28/2022 9:33 AM EDT TCM Home Visit Referral Source of Stratification: [facility] Admission Status: Discharged Readmission Risk Score: 49 JOHNNY Score: 25 Patient meets program referral criteria: Yes Program referral criteria met: - Readmission risk score 40% or greater Patient qualifies for High Risk TCM Home Visit. Discussed High Risk TCM Home Visit Program with patient: Patient - Does not accept due to:Patient Declined Preferred contact number: [phone] Is patient staying somewhere other than the listed home address: No Dialysis Patient: No Krupa Aparicio RN August 28, 2022 9:34 AM TRANSITIONAL CARE MANAGEMENT (TCM) COMMUNITY MONITORING PROGRAM - [place] Provider Action/FYI: Patient declines HRTIC program. Patient declines scheduling follow up. Has an appointment with dermatology on 09/06. Offered telephone call visit and patient declined this as well. Patient unable to stand long enough to complete daily weights. Reviewed low sodium diet and fluid restrictions with patient. Patient verbalized understanding. Patient wearing oxygen 4 liters nasal cannula. Patient mentioned pharmacist referral for diabetic supplies? States that you had discussed previously with patient. Patient requesting refill of albuterol nebulizer solution and norco. Patient reports that she was previously active with pain management and that she has not seen them in years. Krupa Aparicio RN SUMMARY: Pt discharged from [facility] on 08/27/22. Admitted for: CHF Contact made with patient: Yes General: Patient reports feeling about the same as when she was admitted to the hospital. Patient denies any dyspnea, wearing oxygen 4 liters nasal cannula. Patient lives with her daughter and statesthat her daughter does not like people coming into the home. Offered/ discussed HRTIC program with patient declining due to daughter not wanting anyone in the home. Patient voiced some concerns regarding in patient care/ discharge prior to when she felt that she was ready. Encouraged patient to call [facility] to report. Patient states that her daughter is handling that. Patient reports that she has 2 sutures flotation tender from biopsy site. CHF: Patient is unable to stand long enough to obtain weights. Reviewed with patient low sodium diet and monitoring fluid intake. Patient verbalized understanding. Encouraged patient to monitor swelling and dyspnea and to report any changes. Patient verbalized understanding. Medications: Patient requesting refill of albuterol nebulizer solution, and norco as she is almost out. Patient states that she used to follow with pain management and has not seen them in years. Patient to obtain Hiprex today. Patient requesting referral to pharmacist to assist with obtaining diabetic supplies. Patient states that she has previously discussed with provider. Message sent. Diabetes: Patient monitoring blood sugars and independent with insulin administration. Follow up appointments: Patient has an appointment scheduled for 09/06/22 with dermatology. Patient called and cancelled the cardiology appointment. Patient declines scheduling TCM visit or phone call. Patient states that her daughter had to take off for other appointments and that she is not sure that her daughter can take more time off. Patient states that she was recently seen by nephrology, PCP and cardiology and did not feel an appointment was warranted. Hi my name is Krupa Aparicio RN and I am calling from the [facility] on behalf of your PCP, Agustin Barahona APRN.TOUR ACTOR I understand you were recently in the hospital so I am calling to check in with you to ensure you are feeling well now that you re home. Do you mind if I ask you a few questions related to your hospital stay and well-being Yes Contact with patient post discharge, spoke to patient. Patient identified by name and . Do you feel your health is BETTER, WORSE, or the SAME since leaving the hospital? Same ACTION TAKEN: Patient indicated symptoms are better or same, no action required. Continue outreach. MEDICATIONS: Many patients have questions or concerns about their medications once they are home. Do you have any questions about taking your medications or which medication you should be on? Yes Do you need any medication refills at this time, including any of the medications you might take only when needed? Yes ACTION TAKEN: Patient has questions about medications - Inform PCP care team will be in contact to discuss further. Routed to PCP and indicated in the FYI box. For RNs or Pharmacy completing outreach ONLY, was a medication review completed? Yes SOCIAL: We would like to make sure you have what you need so that your basics needs are met - including your personal safety, food, housing and medications. Would you like to speak with a social work garment steamer to help give you support for any of these needs? No It can be normal to feel anxious or down during a time like this. Would you like to talk to a mental health professional about how you have been feeling? No ACTION TAKEN: No action taken DISCHARGE INTRUCTIONS: Your discharge instructions / After Visit Summary (AVS) are important in guiding you through the recovery process. Do you have any questions related to your discharge instructions? No Do you have all the necessary equipment and supplies at home? Yes ACTION TAKEN: No action required Thank you for talking with me today. I would like to help you schedule a hospital follow-up virtualor telephone visit with your PCP. This is a great way for you to connect with your provider to ensure you have safely transitioned home. If you are agreeable, I will send your request to a senior master scheduler who will contact and assist you with that appointment. This will give you an opportunity to ask any questions or address any concerns you may have with your PCP. Inform the patient that if they have any questions or concerns prior to that appointment, to call their PCP's office right away. ACTION TAKEN: No action required, patient declines appointment. Your doctor would like us to remind you of the recommendations regarding the coronavirus (Covid19) outbreak: Avoid public places as much as possible. Avoid close contact (within 6 feet) with others you don't live with, especially if they are sick. Stay home if you are sick. Wash your hands regularly for at least 20 seconds with soap and water. Wear a cloth mask in public places to help reduce community spread. Krupa Aparicio RN Do not go to your Doctor's office unless instructed to do so. For any non- emergency symptoms, call your Doctor's office to get instructions on how to manage (we might recommend a telephone or virtualvisit). For emergency symptoms, proceed to Emergency Department as usual but inform them of cough and fever symptoms LALA if present (or call on the way if possible). documented in this encounterWright-Patterson [facility]10-31-2022 [facility]10[facility]10[facility]10-31-[facility]22 Miscellaneous Notes* Telephone Encounter - Sourav Hill - 08/28/2022 8:54 AM EDT Patient's daughter Alexandro Cote left . Patient last saw Agustin Barahona on 08/16/22. (Alexandro's ph number [phone].) Alexandro said that patient was D/C from hospital on 08/27/22. Alexandro also stated: *Patient has a history of frequent UTIs, patient and daughter both very concerned *Alexandro said that patient should have been given a script for (upon leaving the hosptial): Methenamine Hippurate (HIPREX) 1 gram tablet It looked like script had been sent by provider Zully Malik on 08/27/22. I called the pharmacy which is: [facility] [id number] [place] [facility] [place] [address] - [address] - [phone] I spoke with pharmacist, he said script was received but was denied at first, he resubmitted and itwas accepted, he confirmed they have the medication in stock. I left for Alexandro, gave her update about the med being filled, told her I would make medical staffaware as well. Thank you, Sourav Hill documented in this encounterWright-Patterson Medical Center10-30-2022 [facility]10-29-2022 [facility]10[facility]29-[facility] Miscellaneous Notes * Telephone Encounter - Martín Carbajal MD - 08/26/2022 5:51 PM EDT Got a call from patient's sister, who stated that patient is admitted at [facility], and was seen by Cardiology MACHINE SAND MIXER today. The pat was under the impression that Josefina Reis told her today that she should be in the hospital until Sunday. The hospitalist service felt that she could be discharged today. Reviewed her medications, notes from Josefina Reis. She is currently on po meds, and should be able to be managed as an outpatient from the cardiac standpoint. The sister mentioned that her daughter takes her to doctor's office visits, and it would be difficult for her to do so. I explained that from the cardiac standpoint, she does not have criteria to definitively be in the hospital. Pt's sister verbalized understanding, and said that she will discus anything further with Dr damian, who is the admitting hospitalist. documented in this encounterWright-Patterson Medical Center10-29-2022 [facility]10-29-2022 [facility]10[facility]10[facility]28[facility]20[facility]28[facility]20[facility]10-27-2022 Miscellaneous Notes* Telephone Encounter - Agustin Barahona APRN.CNP - 08/24/2022 4:44 PM EDT Pt currently in hospital. Agustin Barahona APRN.CNP * Telephone Encounter - Mary Farr - 08/24/2022 4:14 PM EDT Patient/Patient's Pharmacy is requesting the following refill. Patient's last appointment: with Agustin Barahona CNP was 08/16/22. Next appointment: none. Requested Prescriptions Pending Prescriptions Disp Refills omeprazole (PRILOSEC) 20 mg capsule [Pharmacy Med Name: Omeprazole 20mg Delayed- Release Capsule] 30capsule 11 Sig: Take 1 capsule by mouth every day Patient Phone numbers: [phone] (home) Request is for script(s) to be escript to pharmacy. Mary Farr documented in this encounterWright-Patterson Medical Center10-27-2022 [facility]10[facility]10[facility]10[facility]26-20[facility]10-26-2022 Miscellaneous Notes* Telephone Encounter - Navya Luna MA - 08/23/2022 2:26 PM EDT Notified to patient's daughter. She will call to reschedule at the office whenever she can. Navya Luna MA * Telephone Encounter - Navya Luna MA - 08/23/2022 1:19 PM EDT Patient's daughter called states pt is in hospital for UTI and it's her fifth one this year. They have her on keflex and pt's daughter said pt doesn't respond to keflex. Pt's daughter wanted to you know patient might not make it to her appointment on 08/25/22. Pt's daughter would like to know if pt could see anyone else? Please advise Navya Luna MA documented in this encounterWright-Patterson Medical Center10-26-2022 NoteHNO ID: [id number] Author: Toyin Marrero RN Service: ? Author Type: Registered Nurse Type: Nursing Progress Note Filed: 08/22/2022 11:06 PM Note Text: Pt RV=[id number]. Sound notified. Awaiting response.[facility] 08-21-2022 Miscellaneous Notes* Telephone Encounter - Val Bee MA - 08/21/2022 5:14 PM EDT Called and notified patient of verbal and patient voiced understanding of verbal. Val Bee MA * Telephone Encounter - Agustin Barahona APRN.CNP - 08/21/2022 4:33 PM EDT I agree with cardiology recommendations to go to ER. Unfortunately, she suffers from many chronic conditions which can be difficult to treat by themselves, let alone having multiple chronic conditions. If her swelling is worsening and she is developing SOB their is concern for a HF exacerbation and which is difficult to treat in the out patient setting. Agustin Barahona APRN.HEATHER * Telephone Encounter - Val Bee MA - 08/21/2022 4:02 PM EDT AGATHA Called and spoke to patient and she stated that she has bilateral leg swelling , is having someSOB, but states she is on oxygen at home, nausea, fatigue. She stated that she is going to go to the the ER when daughter gets off of work like her retail sales assistant recommended, but is unsure what they will do. Val Bee MA * Telephone Encounter - Sourav Hill - 08/21/2022 1:05 PM EDT Patient left VM, she states that her retail sales assistant told her she should go to the ER for the swelling in her legs. She is concerned about overusing the ER and would like to speak to our office about this matter. Patient's phone number is: [phone] Please advise. Thank you. Sourav Hill documented in this encounterWright-Patterson Medical Center10-24-2022 Miscellaneous Notes* Telephone Encounter - Merissa Browne LPN - 08/21/2022 1:04 PM EDT Alexandro called in and was notified of 's response and recommendations.She voiced understanding and will take Kimberly back to ED. Merissa Browne LPN * Telephone Encounter - Sheree Kan RN - 08/21/2022 12:50 PM EDT Images from the original note were not included. Left message on daughter, Alexandro's voicemail requesting a return call regarding Dr. Silva's message. Office phone number provided. ROYCE Cheng MD You 22 minutes ago (12:27 PM) Thanks for the update. Reasonable for her to go back to the ER if her symptoms are worsened especially given worsened renal function with increased lasix therapy during her recent ER visit. Thanks, Lakesha * Telephone Encounter - Sheree Kan RN - 08/21/2022 10:59 AM EDT Received a call from daughter who is concerned with increasing edema in both legs which has been ongoing problems but worse lately. Unable to weigh herself per daughter. Short of breath on any degreeof exertion. Daughter indicated she hasn't taken her blood pressure but saw PCP on Sunday and BP was 110/60. Compliant on all meds per daughter. Advised daughter to take patient to ER due to current complaints and she indicated she did that a week ago and was sent home. Scheduled to see Dr. Silva on08/29/22. Sheree Kan RN documented in this encounterWright-Patterson Medical Center10-20-2022 [facility]10[facility]10[facility] History of Present illness Narrative* Disha Camejo RN - 08/17/2022 1:54 PM EDT PRIMARY CARE COORDINATION QUICK NOTE Provider Action/FYI PCC contacted patient for Primary Care Coordination Intake. Patient declined care coordination at this time. Patient feels she gets enough assistance with her health concerns from her daughter. PCC gave patient contact information shall she have concerns arise. Patient identified by name and date . Disha Camejo RN documented in this [facility]10-20-2022 History of Present illness Narrative* Disha Camejo RN - 08/17/2022 1:37 PM EDT PRIMARY CARE COORDINATION CHART REVIEW Provider Action/FYI Patient identified for Care Coordination from: PCP Referral LAST PCP office visit: 08/16/22 NEXT OV: None scheduled CHRONIC DX: DM, CHF, HTN, COPD CHRONIC DISEASE CARE GAPS: See HM UTILIZATION WITHIN THE LAST 12 MONTHS: 5 ER 2 admission DOES THIS PATIENT HAVE AN ADVANCE DIRECTIVE? Unknown INTERVENTION: Patient eligible for Primary care Coordination due to chronic Dx and high utilization. documented in this encounterWright-Patterson [facility] Center10-19-2022 [facility]10[facility] Instructions* Patient Instructions* Agustin Barahona APRN.TOUR ACTOR - 2022 12:16 PM EDT 1-establish with nephrology today 2-establish with dermatology 3-follow up with cardiology 4-apply Bactroban to open areas 5-take keflex as prescribed 6-complete US of bilateral legs. 7-change dressing daily documented in this [facility]10[facility] Nurse Note* Val Bee MA - 2022 12:01 PM EDT Kimberly Patel is a 67 year old female who presents to follow up for Rash. Val Bee MA' documented in this [facility]10-19-2022 History of Present illness Narrative* Agustin Barahona APRN.TOUR ACTOR - 2022 11:40 AM EDT Images from the original note were not included. [facility] [address] [place] [address] Date of Evaluation: 2022 Patient Name: Kimberly Patel : 1955 Chief Complaint: Patient presents with: Rash Nursing Intake: Nursing Notes: Val Bee MA 2022 12:02 PM Signed Kimberly Patel is a 67 year old female who presents to follow up for Rash. Val Bee MA' Subjective Ms. Patel is a 67 year old female who presents with the following complaint(s): HPI Pt presents for concerns of bilateral leg swelling, recurrent cellulitis and rash. Pt has been instructed to follow with dermatology and nephrology for issues for rash and swelling. Pt is set to see nephrology today at 1pm. Pt's daughter states that she called dermatology and no one called her backfor an apt. Pt was seen in ER (08/01/22) and was offered US of leg to r/o DVT, pt declined at that time d/t having to be transferred downtown for this. Pt has been treated with keflex, and bactrim in the last 2 months for UTI and cellulitis. Pt currently on furosemide 40mg daily, pt follows with HF clinic. Rash has worsened since last apt. Pt and daughter states that it greatly improved when on the keflex, but than it returned a week later and worsened. Pt and daughter deny changes in detergent, medications or food. Denies anyone else in the home having rashes. Rash is on bilateral arms, abdomen, chest, and upper legs. Denies fever, chills, nausea, vomiting. Endorses itching. Review of Systems Constitutional: Negative for activity change, appetite change, chills, diaphoresis, fatigue, fever and unexpected weight change. HENT: Negative for congestion, ear pain, mouth sores, postnasal drip and rhinorrhea. Eyes: Negative for pain, discharge, itching and visual disturbance. Respiratory: Negative for cough, chest tightness, shortness of breath and wheezing. Cardiovascular: Positive for leg swelling. Negative for chest pain and palpitations. Gastrointestinal: Negative for abdominal pain, blood in stool, constipation, diarrhea, nausea and vomiting. Genitourinary: Negative for dysuria and frequency. Musculoskeletal: Negative for arthralgias, gait problem and myalgias. Skin: Positive for rash. Negative for wound. Neurological: Negative for dizziness, tremors, syncope, weakness, light- headedness, numbness and headaches. Psychiatric/Behavioral: Negative for confusion, dysphoric mood and sleep disturbance. The patient is not nervous/anxious. PAST MEDICAL HISTORY Diagnosis Date Asthma CAD (coronary artery disease) s/p stent. last one >5 years ago CHF (congestive heart failure) ([facility]) COPD (chronic obstructive pulmonary disease) ([facility]) DM2 (diabetes mellitus, type 2) ([facility]) HTN (hypertension) Mixed hyperlipidemia Pneumonia due to COVID-19 virus 10/13/2020 PAST SURGICAL HISTORY Procedure Laterality Date REMOVAL GALLBLADDER FAMILY HISTORY Problem Relation Age of Onset Breast Cancer Mother Diabetes Mother Colon Cancer Father Diabetes Father Diabetes Sister Heart Brother Diabetes Brother Social History Tobacco Use Smoking status: Former Types: Cigarettes Quit date: 08/2011 Years since quittin.9 Smokeless tobacco: Never Vaping Use Vaping Use: Never used Substance Use Topics Alcohol use: Never Drug use: Never Current Outpatient Medications Medication Sig Dispense Refill furosemide (LASIX) 20 mg tablet TAKE 2 TABLETS BY MOUTH EVERY DAY 180 tablet 1 pregabalin (LYRICA) 75 mg capsule Take 1 capsule by mouth twice daily. 180 capsule 3 isosorbide mononitrate ER (IMDUR) 30 mg 24 hr tablet TAKE 1 TABLET BY MOUTH EVERY DAY 90 tablet 1 insulin lispro (HUMALOG KWIKPEN INSULIN) 200 unit/mL (3 mL) injection Inject 40 units subcutaneously before breakfast, 40 units subcutaneously before lunch, 40 units subcutaneously before dinner. Administer this within 15 minutes before your meals or immediately after your meals. 60 mL 3 insulin detemir U-100 (LEVEMIR FLEXTOUCH U-100 INSULIN) 100 unit/mL (3 mL) injection pen Inject 50 units subcutaneously in the AM, 80 units subcutaneously in the PM 120 mL 3 Lancets lancets Use as directed to check blood sugar 4 times daily, insulin: yes, E11.42 200 Each 11 blood sugar diagnostic (ONETOUCH ULTRA TEST) test strip Use as directed to check your blood sugar 4times daily. insulin: yes, E11.42 200 Each 11 linaGLIPtin (TRADJENTA) 5 mg tab Take 1 tablet by mouth once daily. 30 tablet 11 psyllium husk, with sugar, (METAMUCIL) 3.4 gram packet Take 1 Packet by mouth once daily. 90 Packet0 Insulin Conover, Disposable, (PEN NEEDLE) 31 gauge x 3/16 Use as directed to inject insulin 5 times daily as directed. insulin: yes, E11.42 200 Each 11 albuterol HFA (PROVENTIL HFA, VENTOLIN HFA) 90 mcg/actuation inhaler Inhale 2 puffs by mouth every 4 hours as needed for wheezing/shortness of breath 1 Inhaler 11 fluticasone-vilanterol (BREO ELLIPTA) 200-25 mcg/dose inhaler Inhale 1 puff by mouth every day as directed 1 Each 11 ezetimibe (ZETIA) 10 mg tablet TAKE 1 TABLET BY MOUTH EVERY DAY 90 tablet 2 metoprolol succinate ER (TOPROL XL) 25 mg 24 hr tablet Take 1 tablet by mouth every day 30 tablet 5 nitroglycerin sublingual (NITROQUICK) 0.4 mg SL tablet Dissolve 1 tablet under the tongue as neededfor chest pain. If no pain relief call 911. 25 Bottle of 25 3 losartan (COZAAR) 50 mg tablet Take 1 tablet by mouth every day 30 tablet 11 atorvastatin (LIPITOR) 80 mg tablet Take 1 tablet by mouth every day 30 tablet 11 albuterol (PROVENTIL) 2.5 mg /3 mL (0.083 %) nebulizer solution Use 3 mL via nebulizer every 4 hours as needed for wheezing/shortness of breath. 30 Vial 2 flash glucose scanning reader (FREESTYLE GABRIELLE 2 READER) 1 Each. Use as directed to check blood sugars 3 times daily. Scan FreeStyle Gabrielle 2 sensors at least every 8 hours. flash glucose sensor (FREESTYLE GABRIELLE 2 SENSOR) kit 2 Each. Use as directed to check blood sugars 3times daily. Scan FreeStyle Gabrielle 2 sensors at least every 8 hours. Replace sensor every 14 days. omeprazole (PRILOSEC) 20 mg capsule Take 1 capsule by mouth once daily. 90 capsule 2 Lancing Device (LANCING DEVICE WITH LANCETS) [facility] Use as directed to check blood sugar 3 times daily, insulin: yes, E11.9 1 Each 3 WALKER ROLLATOR SEAT WITH 6 WHEELS - RED Walker rollator with seat 1 Each 0 aspirin, enteric coated (ASPIRIN, ENTERIC COATED) 81 mg EC tablet Take 81 mg by mouth once daily. ranolazine SR (RANEXA) 1,000 mg tab ER 12 hr Take 1,000 mg by mouth twice daily. hydrOXYzine HCl (ATARAX) 25 mg tablet Take 1 tablet by mouth three times daily as needed for itching/rash (for itching). 90 tablet 0 cephALEXin (KEFLEX) 500 mg capsule Take 1 capsule by mouth four times daily for 14 days. 56 capsule0 mupirocin (BACTROBAN) 2 % ointment Apply 1 application to affected area three times daily for 10 days. 30 g 0 HYDROcodone-Acetaminophen (NORCO) 7.5-325 mg per tablet Take 1 tablet by mouth once daily as neededfor pain. (Patient not taking: Reported on 2022) No current facility-administered medications for this visit. I have confirmed and edited as necessary the chief complaint, medications, past medical, family andsocial histories obtained by others. Objective BP 110/60 Pulse 77 Temp (Src) 98.5 (Tympanic) Ht 5' 5 (1.65m) Wt 0 lb (0.0kg) SpO2 99% Physical Exam Vitals and nursing note reviewed. Constitutional: General: She is awake. She is not in acute distress. Appearance: Normal appearance. She is well-groomed. She is not ill-appearing, toxic-appearing or diaphoretic. HENT: Head: Normocephalic and atraumatic. Nose: No rhinorrhea. Mouth/Throat: Mouth: Mucous membranes are moist. Eyes: Pupils: Pupils are equal, round, and reactive to light. Cardiovascular: Rate and Rhythm: Normal rate and regular rhythm. Pulses: Normal pulses. Heart sounds: Normal heart sounds. No murmur heard. No friction rub. No gallop. Comments: Erythema noted on BLE. Open area nad seeping noted on the R leg. Pulmonary: Effort: Pulmonary effort is normal. No respiratory distress. Breath sounds: No stridor. Examination of the right-lower field reveals decreased breath sounds. Examination of the left-lower field reveals decreased breath sounds. Decreased breath sounds present. No wheezing, rhonchi or rales. Chest: Chest wall: No tenderness. Abdominal: General: Bowel sounds are normal. Palpations: Abdomen is soft. Musculoskeletal: General: No swelling. Normal range of motion. Cervical back: Normal. Right lower le+ Edema present. Left lower le+ Edema present. Skin: General: Skin is warm and dry. Capillary Refill: Capillary refill takes less than 2 seconds. Findings: Erythema and rash present. No bruising. Comments: Rash: on bilateral upper arms, chest, abdomen, and chin: various stages of healing. Some open areas, scabbed areas, papules, macules and vesicles noted. Cellulitis: bilateral lower extremities erythema and warmth noted. Extensive swelling noted. Neurological: General: No focal deficit present. Mental Status: She is alert and oriented to person, place, and time. Mental status is at baseline. Gait: Gait normal. Psychiatric: Attention and Perception: Attention normal. Mood and Affect: Mood normal. Speech: Speech normal. Behavior: Behavior normal. Behavior is cooperative. Thought Content: Thought content normal. Judgment: Judgment normal. Data Reviewed: Most recent labs and imaging results. ASSESSMENT/PLAN: 1. Ecthyma - ICD9: 686.8, ICD10: L08.0 (primary diagnosis) - HYDROXYZINE HCL 25 MG TABLET - CEPHALEXIN 500 MG CAPSULE - MUPIROCIN 2 % TOPICAL OINTMENT - CONSULT TO DERMATOLOGY 2. Leg swelling - ICD9: 729.81, ICD10: M79.89 - US DVT LOWER BILAT 3. Stage 3b chronic kidney disease (HCC) - ICD9: 585.3, ICD10: N18.32 - eGFR: Worsening - Statin therapy: Yes - ACEi/ARB prescribed: Yes - Following with nephrology: Yes - Counseled on avoiding regular use of NSAIDs, adequate hydration, potential risk of IV dye - Counseled on renal diet (low sodium/low potassium/low phosphorus) - Follow up with nephrology 4. Primary hypertension - ICD9: 401.9, ICD10: I10 - good control - Continue current medication(s) - Encouraged dietary sodium restriction/DASH diet - Recommended regular aerobic exercise. - Recommend home blood pressure monitoring, to bring results in on next visit - Goal of BP <130/80 5. Type 2 diabetes mellitus with diabetic polyneuropathy, with long-term current use of insulin (HCC) - ICD9: 250.60, 357.2, V58.67, ICD10: E11.42, Z79.4 Controlled. - Continue current medications - BP goal of <130/80 - LDL goal of <100 6. Chronic heart failure with preserved ejection fraction (HFpEF) (HCC) - ICD9: 428.9, ICD10: I50.32 -continue to follow with HF clinic -encouraged to follow up with cardiology 7. Recurrent UTI (urinary tract infection) - ICD9: 599.0, ICD10: N39.0 -pt scheduled to follow up with urology 8. Physical debility - ICD9: 799.3, ICD10: R53.81 -continue to follow with home care Agustin Barahona APRN.TOUR ACTOR Return in about 6 weeks (around 09/27/2022), or if symptoms worsen or fail to improve. Discussed the above with the patient using shared decision making. The patient is in agreement with the diagnostic and treatment plans. documented in this encounterWright[facility]10-14-[facility] Miscellaneous Notes* Telephone Encounter - Anette Lopez MA - 08/11/2022 3:34 PM EDT Patient/Patient's Pharmacy is requesting the following refill. Patient's last appointment: with Agustin Barahona CNP was 07/05/2022. Next appointment: 2022 with Agustin Barahona CNP. Requested Prescriptions Pending Prescriptions Disp Refills furosemide (LASIX) 20 mg tablet [Pharmacy Med Name: FUROSEMIDE 20 MG TABLET] 90 tablet 1 Sig: TAKE 2 TABLETS BY MOUTH EVERY DAY Patient Phone numbers: [phone] (home) Request is for script(s) to be escript to pharmacy. Anette Lopez MA documented in this encounterWright-[facility]10-13-2022 Miscellaneous Notes* Telephone Encounter - Vickey Dumont MA - 08/10/2022 3:59 PM EDT Pt notified Vickey Dumont MA * Telephone Encounter - Agustin Barahona APRN.CNP - 08/10/2022 12:40 PM EDT Pt needs to be evaluated to determine if an antibiotic is needed. Repeat antibiotic use can cause complications such as C.Diff. Agustin Barahona APRN.CNP * Telephone Encounter - Vickey Dumont MA - 08/08/2022 4:02 PM EDT you saw her for cellulitis of right lower extremity she went to ED on for same problem, she was given cephALEXin (KEFLEX) 500 mg capsule (Discontinued) 14 capsule 0 07/19/2022 07/21/2022 Sig: Take 1 capsule by mouth twice daily. Sent to pharmacy as: cephALEXin (KEFLEX) 500 mg capsule nitrofurantoin monohydrate and macrocrystal (MACROBID) 100 mg capsule 14 capsule 0 07/21/2022 07/28/2022 Sig: Take 1 capsule by mouth twice daily for 7 days. Sent to pharmacy as: nitrofurantoin monohydrate and macrocrystal (MACROBID) 100 mg capsule Class: Normal * Telephone Encounter - Luana Hilton - 08/08/2022 3:38 PM EDT Patient lm asking for refill on antibiotic she was given at the ER. She said it is helping with herrash and swelling. Please advise, thank you! Luana Hilton documented in this encounterWright-[facility]10-10-2022 Miscellaneous Notes* Telephone Encounter - Haley Cook - 08/07/2022 8:53 AM EDT Patient/Patient's Pharmacy is requesting the following refill. Patient's last appointment: with Agustin Barahona CNP was 07/05/2022. Pt refused appointment- says she will call to make one. Requested Prescriptions Pending Prescriptions Disp Refills pregabalin (LYRICA) 75 mg capsule [Pharmacy Med Name: Pregabalin 75mg Capsule] 180 capsule 3 Sig: Take 1 capsule by mouth twice daily. Patient Phone numbers: [phone] (home) Request is for script(s) to be escript to pharmacy. Haley Cook documented in this encounterWright-[facility]10-07-2022 Miscellaneous Notes* Telephone Encounter - Val Bee MA - 08/04/2022 2:10 PM EDT Left message for patient to call office to schedule/reschedule appointment. Val Bee MA * Telephone Encounter - Agustin Barahona APRN.CNP - 08/04/2022 7:48 AM EDT Please have pt schedule an apt to review results and discuss ER visit. Agustin Barahona APRN.CNP * Telephone Encounter - Sourav Hill - 08/02/2022 4:16 PM EDT Patient left VM, she was seen in the ED yesterday 08/01/22. Patient said she was told in the ED that her blood work looks fine. Patient said no, her blood work is not fine - now that she has seen results. She said that some of the results are worse than how she had been trending recently. Patient asking for call back: Ph. [phone] Please advise. Thank you. Sourav Hill documented in this encounterWright[facility]10-05-2022 Miscellaneous Notes* Telephone Encounter - Sneha Hager - 08/02/2022 2:20 PM EDT Patient contacted. Dr Enriquez is not available until sep 05. Patient declined to schedule She will call the [facility] at [phone] * Telephone Encounter - Alexandro Qureshi RN - 08/02/2022 12:02 PM EDT Patient calling in for ERFU appointment with Dr. Enriquez for her rash. Please call patient back. thanks documented in this encounterWright[facility] Center10-05-2022 Miscellaneous Notes* Telephone Encounter - Sourav Hill - 08/02/2022 1:46 PM EDT After scheduling this US for this 08/04/22, I contacted the patient. Patient firmly declined this appointment for now. She said she has other medical issues / appointments, and she wants to use her transportation (her daughter) more judiciously. I gave her the date that the US order expires, encouraged to call to schedule US right away if she has a change of heart on this. Thank you, Sourav Hill * Telephone Encounter - Agustin Barahona APRN.CNP - 08/02/2022 12:39 PM EDT Pt needs apt to be evaluated for reoccurring rash. Pt can take benadryl as directed on bottle for itching. If she is starting to have facial swelling she needs to be seen at ER or urgent care. US of the bilateral LE was ordered for further evaluation of leg swelling. Please urge her to make apt with dermatology for rash as discussed at previous apt and in the ER. Agustin Barahona APRN.HEATHER * Telephone Encounter - Val Bee MA - 08/02/2022 11:46 AM EDT Called and spoke to patient and patient stated that she was prescribed prednisone medication for a rash and patient stated that the prednisone helped, but did not take rash completely away and now the rash is spreading all over body including her face. Patient also stated she was in ED yesterday for cellulitis and wanted to make you aware. I offered patient appointment to be seen in office for follow up, but patient declined due to transportation. Please advise. Val Bee MA * Telephone Encounter - Sourav Hill - 08/02/2022 10:35 AM EDT Patient left VM. She stated her rash is back, and that it is pretty bad. She asked to be called back at: [phone] The reason I am sending this as a high priority telephone encounter is that I noted patient was seen in ED yesterday 08/01/22. Please advise. Thank you. Sourav Hill documented in this encounterWright[facility] Center09-29-2022 Miscellaneous Notes* Telephone Encounter - Micheline Marroquin RN - 07/27/2022 2:11 PM EDT Pt called for 07/31/22 appointment confirmation and pt states she wishes to have appt be a telephonevisit with an RN rather than an in-person visit due to transportation issues and feeling unwell from frequent UTI's. Appt changed to telephone appt per pt request. documented in this encounterWright-[facility] Center09-22-2022 Miscellaneous Notes* Telephone Encounter - Travis House RN - 07/20/2022 1:24 PM EDT Phone call placed to daughter regarding a change in scheduling with patient [facility] appt on 07/21/22. Patient was in ED yesterday for UTI. Daughter further states that her Lasix was recently increased by PCP. Encouraged follow up with PCP regarding any further changes with Lasix. Alexandro verbalized understanding. documented in this encounterWright-[facility] Center09-19-2022 Miscellaneous Notes* Telephone Encounter - Davis Loving MA - 07/17/2022 9:07 AM EDT Patient advised of message. Davis Loving MA * Telephone Encounter - Agustin Barahona APRN.CNP - 07/17/2022 8:42 AM EDT Pt can stop taking fiber supplement if her diarrhea has worsened. If her rash is clearing up but not worsening this is okay. If it starts to worsen please let me know. Agustin Barahona APRN.CNP * Telephone Encounter - Davis Loving MA - 07/14/2022 3:25 PM EDT Patient states the Prednisone is working but not cleared all the way up. Please advise of message. Davis Loving MA * Telephone Encounter - Sourav Hill - 07/14/2022 3:02 PM EDT Patient left VM - last saw Agustin Barahona on 07/05/22. Patient said the medication that Agustin prescribed is helping, but that she is still not completelyclear. She did not say the name of the medication. She is also having problems with diarrhea (I am not sure if she was associating this with the medication). She asked for a call back at phone: [phone] Please advise. Thank you. Sourav Hill documented in this encounterWright-[facility] Center09-19-2022 Miscellaneous Notes* Telephone Encounter - Merissa Browne LPN - 07/17/2022 7:52 AM EDT Patient's request for medication is as follows: Requested Prescriptions Pending Prescriptions Disp Refills isosorbide mononitrate ER (IMDUR) 30 mg 24 hr tablet [Pharmacy Med Name: ISOSORBIDE MONONIT ER 30 MG TB] 90 tablet 1 Sig: TAKE 1 TABLET BY MOUTH EVERY DAY Last seen 02/27/2022. Prescription(s) as above. Please process accordingly. Merissa Browne LPN documented in this encounterWright-Pat[facility] Center09-09-2022 Miscellaneous Notes* Telephone Encounter - Agustin Barahona APRN.HEATHER - 07/07/2022 10:57 AM EDT Noted. Thank you for your exceptional care. Agustin Barahona APRN.HEATHER * Telephone Encounter - Susan Cuello RPh - 07/06/2022 6:03 PM EDT Care Transition Back to PCP Our mutual patient, Kimberly Patel, has achieved adequate control of their Diabetes during their care with us. We will not be scheduling further follow up with pharmacy at this time. They have been encouraged to follow up with you for ongoing management. Next PCP team appointment: not yet scheduled Most recent PCP appointment: 07/05/22 Thank you for utilizing primary care pharmacy services. Thank you, Susan Cuello PharmD, BCACP * Telephone Encounter - Susan Cuello RPh - 07/06/2022 6:00 PM EDT Patient has reached A1c goal of <8% and is now following with new PCP outside of my consult scope. To be discharged from pharmD services now. PharmD removed from patient's CareTeam. Thank you, Susan Kehr, PharmD, BCACP documented in this encounterWright-[facility] Center09-08-2022 NoteHNO ID: [id number] Author: Susan Cuello RPh Service: ? Author Type: Pharmacist Type: Progress Notes Filed: 07/06/2022 5:59 PM Note Text: Primary Care Pharmacy Visit Patient consents to pharmacy consult agreement. CC (Reason for Consult): Type 2 diabetes mellitus with diabetic polyneuropathy, with long-term current use of insulin (HCC) - ICD9: 250.60, 357.2, V58.67, ICD10: E11.42, Z79.4 Goal: A1c <8% Last Collaborating Physician Visit: [facility] (Dr. Deng), 03/22/22 [facility] (HEAD REFRIGERATING ENGINEER Shea Childers), 04/13/22 New Provider: SETH Barahona, 07/05/22 Kimberly Patel is a 66 year old female presenting for follow up visit virtually. Patient consents to pharmacy collaborative practice agreement. . HPI: patient was diagnosed with T2DM >10 yrs ago (pt uncertain of year). Established with pharmacist for diabetes management on 08/05/21 Last seen by pharmacy on 06/12/22 at which time: BGs were above goal on ave though with improvement Identified patient taking less AM basal insulin and bolus insulin than prescribed Most BG excursions were in the PM Increased AM basal insulin by ~15% and bolus insulin by ~10% INTERIM HISTORY: 07/05/22 - PCP [facility]: prednisone started d/t rash 06/23/22 - NEW PCP [facility]: A1c POC 7.9%. Bactrim started d/t cellulitis, consulted to home health and OT/PT, furosemide increased, labs ordered SUBJECTIVE: Reports recently switched PCPs: now seeing HEAD REFRIGERATING ENGINEER Agustin Barahona Need Tradjenta refills sent to [facility] for pill pack Has not been checking her sugars regularly Current DM medications: linagliptin 5 mg daily Levemir 50 units in the AM, 80 units in the PM Humalog 44 units before breakfast, 44 units before lunch, 44 units before dinner -- reports has been using 40 units TID AC meals Previously trialed DM medications: Sitagliptin -- changed to linagliptin Metformin IR -- stopped in Jan 2021 d/t diarrhea Jardiance -- stopped d/t h/o severe UTIs resulting in sepsis Trulicity -- stopped d/t severe nausea DIET: Recent Diet changes: none Meals: 2-3 meals/day (no set meals); daughter cooks for her at night; grazes in daytime Trying to follow diet set by HF clinic Daughter brings her the meals (not at set time each day) Mostly processed food in the day Breakfast: 5-7 strawberries, coffee Lunch: sandwich (deli-sandwhich, egg salad, PBANDJ, tuna fish) Dinner (~6:30-7 pm): chicken, veggies, stuffing or carbs Snacks: fresh fruit (oranges, apples) - not usually at bedtime Beverages: caffiene coffee (with cream; 1 cup/day), water (64 oz/day), V8 juice (once weekly), regular pepsi (1 every 2 weeks) Sodium Intake: does NOT add; uses MsBrandi Arauz (HF sodium-free diet); does reportedly lightly salt pakistani fries infrequently EXERCISE: walks around inside of house. Has difficulty walking; can stand and pivot. Uses office chair with wheels to move around the inside of house. Reports having displaced vertebrae pushing on nerve and degenerative disk disease limiting her ability to walk. SOCIAL Hx: Tobacco: denies Alcohol: denies Illicits: denies ROS: Patient denies CP, SOB, HEAD, blurred vision, dizziness or lightheadedness Patient denies nausea, vomiting, diarrhea, abdominal pain Patient denies symptoms of hypoglycemia (sweating, anxiety, palpitations, hunger, and tremor) Patient denies symptoms of hyperglycemia (polyuria, polydipsia, polyphagia) Patient denies potential medication adverse effects Past medical, family and social history reviewed and updated. ACTIVE PROBLEM LIST Diya (Obstructive Sleep Apnea) Chf (Congestive Heart Failure) ([facility]) Type 2 Diabetes Mellitus With Diabetic Polyneuropathy, With Long-Term Current Use of Insulin ([facility]) Coronary Arteriosclerosis in [place] Artery Bipolar Disorder ([facility]) Mixed Hyperlipidemia Class 3 Severe Obesity With Serious Comorbidity and Body Mass Index (Bmi) of 45.0 to 49.9 in Adult ([facility]) Chronic Respiratory Failure With Hypoxia ([facility]) Chronic Obstructive Pulmonary Disease ([facility]) Physical Debility Recurrent Uti (Urinary Tract Infection) Primary Hypertension Stage 3b Chronic Kidney Disease ([facility]) Microalbuminuria Restrictive Lung Disease Chronic Heart Failure With Preserved Ejection Fraction (Hfpef) ([facility]) Requires Assistance With Activities of Daily Living (Adl) Weakness of Both Legs Ddd (Degenerative Disc Disease), Lumbar Spondylolisthesis of Lumbar Region Trigger Middle Finger of Right Hand History of Covid-19 Slow Transit Constipation PAST MEDICAL HISTORY Diagnosis Date Asthma CAD (coronary artery disease) s/p stent. last one >5 years ago CHF (congestive heart failure) ([facility]) COPD (chronic obstructive pulmonary disease) ([facility]) DM2 (diabetes mellitus, type 2) ([facility]) HTN (hypertension) Mixed hyperlipidemia Pneumonia due to COVID-19 virus 10/13/2020 ALLERGIES Allergen Reactions Dilaudid [Hydromorp* Vomiting Jardiance [Empaglif* Other: See Comments UTI (more content not included)...[facility]09-08-2022 History of Present illness Narrative* Susan Dior, [facility] - 07/06/2022 11:30 AM EDT Primary Care Pharmacy Visit Patient consents to pharmacy consult agreement. CC (Reason for Consult): Type 2 diabetes mellitus with diabetic polyneuropathy, with long-term current use of insulin ([facility]) - ICD9: 250.60, 357.2, V58.67, ICD10: E11.42, Z79.4 Goal: A1c <8% Last Collaborating Physician Visit: [facility] (Dr. Deng), 03/22/22 [facility] (HEAD REFRIGERATING ENGINEER Shea Childesr), 04/13/22 New Provider: SETH Barahona, 07/05/22 Kimberly Patel is a 66 year old female presenting for follow up visit virtually. Patient consents [facility] collaborative practice agreement. . HPI: patient was diagnosed with T2DM >10 yrs ago (pt uncertain of year). Established with pharmacist for diabetes management on 08/05/21 Last seen by pharmacy on 06/12/22 at which time: BGs were above goal on ave though with improvement Identified patient taking less AM basal insulin and bolus insulin than prescribed Most BG excursions were in the PM Increased AM basal insulin by ~15% and bolus insulin by ~10% INTERIM HISTORY: 07/05/22 - PCP [facility]: prednisone started d/t rash 06/23/22 - NEW PCP [facility]: A1c POC 7.9%. Bactrim started d/t cellulitis, consulted to home health and OT/PT, furosemide increased, labs ordered SUBJECTIVE: Reports recently switched PCPs: now seeing HEAD REFRIGERATING ENGINEER Agustin Barahona Need Tradjenta refills sent to [facility] for pill pack Has not been checking her sugars regularly Current DM medications: linagliptin 5 mg daily Levemir 50 units in the AM, 80 units in the PM Humalog 44 units before breakfast, 44 units before lunch, 44 units before dinner -- reports has been using 40 units TID AC meals Previously trialed DM medications: Sitagliptin -- changed to linagliptin Metformin IR -- stopped in Jan 2021 d/t diarrhea Jardiance -- stopped d/t h/o severe UTIs resulting in sepsis Trulicity -- stopped d/t severe nausea DIET: Recent Diet changes: none Meals: 2-3 meals/day (no set meals); daughter cooks for her at night; grazes in daytime Trying to follow diet set by HF clinic Daughter brings her the meals (not at set time each day) Mostly processed food in the day Breakfast: 5-7 strawberries, coffee Lunch: sandwich (deli-sandwhich, egg salad, PB&J, tuna fish) Dinner (~6:30-7 pm): chicken, veggies, stuffing or carbs Snacks: fresh fruit (oranges, apples) - not usually at bedtime Beverages: caffiene coffee (with cream; 1 cup/day), water (64 oz/day), V8 juice (once weekly), regular pepsi (1 every 2 weeks) Sodium Intake: does NOT add; uses MsBrandi Arauz (HF sodium-free diet); does reportedly lightly salt pakistani fries infrequently EXERCISE: walks around inside of house. Has difficulty walking; can stand and pivot. Uses office chair with wheels to move around the inside of house. Reports having displaced vertebrae pushing on nerve and degenerative disk disease limiting her ability to walk. SOCIAL Hx: Tobacco: denies Alcohol: denies Illicits: denies ROS: Patient denies CP, SOB, HEAD, blurred vision, dizziness or lightheadedness Patient denies nausea, vomiting, diarrhea, abdominal pain Patient denies symptoms of hypoglycemia (sweating, anxiety, palpitations, hunger, and tremor) Patient denies symptoms of hyperglycemia (polyuria, polydipsia, polyphagia) Patient denies potential medication adverse effects Past medical, family and social history reviewed and updated. ACTIVE PROBLEM LIST Diya (Obstructive Sleep Apnea) Chf (Congestive Heart Failure) ([facility]) Type 2 Diabetes Mellitus With Diabetic Polyneuropathy, With Long-Term Current Use of Insulin ([facility]) Coronary Arteriosclerosis in [place] Artery Bipolar Disorder ([facility]) Mixed Hyperlipidemia Class 3 Severe Obesity With Serious Comorbidity and Body Mass Index (Bmi) of 45.0 to 49.9 in Adult ([facility]) Chronic Respiratory Failure With Hypoxia ([facility]) Chronic Obstructive Pulmonary Disease ([facility]) Physical Debility Recurrent Uti (Urinary Tract Infection) Primary Hypertension Stage 3b Chronic Kidney Disease ([facility]) Microalbuminuria Restrictive Lung Disease Chronic Heart Failure With Preserved Ejection Fraction (Hfpef) ([facility]) Requires Assistance With Activities of Daily Living (Adl) Weakness of Both Legs Ddd (Degenerative Disc Disease), Lumbar Spondylolisthesis of Lumbar Region Trigger Middle Finger of Right Hand History of Covid-19 Slow Transit Constipation PAST MEDICAL HISTORY Diagnosis Date Asthma CAD (coronary artery disease) s/p stent. last one >5 years ago CHF (congestive heart failure) ([facility]) COPD (chronic obstructive pulmonary disease) ([facility]) DM2 (diabetes mellitus, type 2) ([facility]) HTN (hypertension) Mixed hyperlipidemia Pneumonia due to COVID-19 virus 10/13/2020 ALLERGIES Allergen Reactions Dilaudid [Hydromorp* Vomiting Jardiance [Empaglif* Other: See Comments UTI Metformin Diarrhea Morphine Vomiting Ondansetron Unknown Penicillins Rash Trulicity [Dulaglut* GI Upset Nausea/Vomiting MEDICATIONS/SUPPLIES: Pill bottles are not present. Adherence: denies missed doses. Organization System: Integrate Pill-pack for all oral meds (Divvy-Dose) Does the patient have diabetes supplies: Yes CGM = [employer] Gabrielle 2; has mobile fern & reader device (via [employer]; $0 co-pay) In current transition to new CGM supply company --> [employer] [facility] [employer]... Glucometer = One touch ultra 2 Lancing Device = [facility] generic Pharmacy: e- [facility] [id number] [place] [address] - [address] - [phone] Divvy-Dose for maintenance meds [facility] for insulins and emergent / short term meds Rx coverage: Payor: [facility] MEDICARE / Plan: [facility] DUAL COMPLETE HMO SNP / Product Type: Medicare / Medication Affordability: No cost concerns at this time Medication List Medication Directions Comments Action/Plan albuterol (PROVENTIL) 2.5 mg /3 mL (0.083 %) nebulizer solution Use 3 mL via nebulizer every 4 hours as needed for wheezing/shortness of breath. albuterol HFA (PROVENTIL HFA, VENTOLIN HFA) 90 mcg/actuation inhaler Inhale 2 puffs by mouth every 4 hours as needed for wheezing/shortness of breath aspirin, enteric coated (ASPIRIN, ENTERIC COATED) 81 mg EC tablet Take 81 mg by mouth once daily. atorvastatin (LIPITOR) 80 mg tablet Take 1 tablet by mouth every day ezetimibe (ZETIA) 10 mg tablet TAKE 1 TABLET BY MOUTH EVERY DAY flash glucose scanning reader (FREESTYLE GABRIELLE 2 READER) 1 Each. Use as directed to check blood sugars 3 times daily. Scan FreeStyle Gabrielle 2 sensors at least every 8 hours. flash glucose sensor (FREESTYLE GABRIELLE 2 SENSOR) kit 2 Each. Use as directed to check blood sugars 3times daily. Scan FreeStyle Gabrielle 2 sensors at least every 8 hours. Replace sensor every 14 days. fluticasone-vilanterol (BREO ELLIPTA) 200-25 mcg/dose inhaler Inhale 1 puff by mouth every day as directed furosemide (LASIX) 20 mg tablet Take 2 tablets by mouth once daily. HYDROcodone-Acetaminophen (NORCO) 7.5-325 mg per tablet Take 1 tablet by mouth once daily as neededfor pain. insulin detemir U-100 (LEVEMIR FLEXTOUCH U-100 INSULIN) 100 unit/mL (3 mL) injection pen Inject 50 units subcutaneously in the AM, 80 units subcutaneously in the PM confirmed insulin lispro (HUMALOG KWIKPEN INSULIN) 200 unit/mL (3 mL) injection Inject 44 units subcutaneously before breakfast, 44 units subcutaneously before lunch, 44 units subcutaneously before dinner. Administer this within 15 minutes before your meals or immediately after your meals. Reports has been injecting 40 units TID AC meals Insulin Conover, Disposable, (PEN NEEDLE) 31 gauge x 3/16 Use as directed to inject insulin 5 times daily as directed. insulin: yes, E11.42 isosorbide mononitrate ER (IMDUR) 30 mg 24 hr tablet Take 1 tablet by mouth once daily. lancets 33 gauge None Entered Lancets lancets Use as directed to check blood sugar 3 times daily, insulin: yes, E11.9 Lancing Device (LANCING DEVICE WITH LANCETS) misc Use as directed to check blood sugar 3 times daily, insulin: yes, E11.9 linaGLIPtin (TRADJENTA) 5 mg tab Take 1 tablet by mouth once daily. confirmed losartan (COZAAR) 50 mg tablet Take 1 tablet by mouth every day metoprolol succinate ER (TOPROL XL) 25 mg 24 hr tablet Take 1 tablet by mouth every day mupirocin (BACTROBAN) 2 % ointment as needed. nitroglycerin sublingual (NITROQUICK) 0.4 mg SL tablet Dissolve 1 tablet under the tongue as neededfor chest pain. If no pain relief call 911. omeprazole (PRILOSEC) 20 mg capsule Take 1 capsule by mouth once daily. polyethylene glycol 3350 (MIRALAX, GLYCOLAX) 17 gram packet Take 1 Packet by mouth once daily as needed (constipation). predniSONE (DELTASONE) 10 mg tablet Take 4 tablets by mouth once daily for 4 days, THEN 3 tablets once daily for 3 days, THEN 2 tablets once daily for 2 days, THEN 1 tablet once daily for 1 day. pregabalin (LYRICA) 75 mg capsule Take 1 capsule by mouth twice daily for 180 days. psyllium husk, with sugar, (METAMUCIL) 3.4 gram packet Take 1 Packet by mouth once daily. ranolazine SR (RANEXA) 1,000 mg tab ER 12 hr Take 1,000 mg by mouth twice daily. sulfamethoxazole-trimethoprim (BACTRIM DS) 800-160 mg per tablet Take 1 tablet by mouth twice dailyfor 7 days. WALKER ROLLATOR SEAT WITH 6 WHEELS - RED Walker rollator with seat Rx meds not listed in EPIC: No OTCs: No Herbals/Supplements: No Drug-drug interactions: none identified On ZAHIRA/ARB: yes On Statin: yes GLYCEMIC CONTROL: Glucometer/CGM present at visit: No SMBG s: none present Has not used CGM sensor in 3 weeks, awaiting refill shipment from DME Reports using fingerpricks infrequently but does not have glucometer present and was unable to provide any insight to what these have been ranging Hypoglycemia: denies Hypoglycemia awareness: yes (felt weak and shakey) How corrected: OJ, pop, cookie, candy; previously reviewed rule of 15 VITALS: There were no vitals taken for this visit. Last 3 Encounter BP Readings: Date: BP: 06/23/2022 122/60 04/10/2022 148/69 03/22/2022 122/62 Wt: 127 kg (280 lb) BMI: 46.59 kg/(m^2) LABS Lab Results Component Value Date HBA1C 7.9 06/23/2022 HBA1C 10.8 08/26/2021 HBA1C 10.5 11/28/2020 HBA1C 12.1 10/14/2020 HBA1C 8.3 04/12/2020 HBA1C 7.6 12/30/2019 CMP: Glucose 200 06/23/2022 BUN 21 06/23/2022 Creatinine 1.31 06/23/2022 Sodium 142 06/23/2022 Potassium 4.5 06/23/2022 Albumin 4.0 06/23/2022 Calcium 9.2 06/23/2022 AST 12 06/23/2022 ALT 9 06/23/2022 Estimated Creatinine Clearance: 58.2 mL/min (A) (based on SCr of 1.31 mg/dL (H)). eGFR-All Other Races (.) Date Value 08/26/2021 43 Estimated Glomerular Filtration Rate (mL/min/1.73m ) Date Value 06/23/2022 46 Lab Results Component Value Date CHOL 153 06/23/2022 CHOL 179 08/26/2021 LDL 68 06/23/2022 LDL 94 08/26/2021 HDL 48 06/23/2022 HDL 41 08/26/2021 TG 187 06/23/2022 TG 219 08/26/2021 Albumin/Creat Ratio (mg/g) Date Value 08/26/2021 Not calculated The 10-year ASCVD risk score (Morgan WRIGHT, et al., 2019) is: 10.5% Values used to calculate the score: Age: 66 years Sex: Female Is Non- : No Diabetic: Yes Tobacco smoker: No Systolic Blood Pressure: 122 mmHg Is BP treated: Yes HDL Cholesterol: 48 mg/dL Total Cholesterol: 153 mg/dL PHARMACOTHERAPY ASSESSMENT/PLAN 1.) Type 2 diabetes mellitus with diabetic polyneuropathy, with long-term current use of insulin ([facility]) - ICD9: 250.60, 357.2, V58.67, ICD10: E11.42, Z79.4 A1c is now WITHIN goal of <8%. No recent SMBG data available and denies recent s/sx hypoglycemia. Again stressed importance of need for better adherence to BG checks, especially with steroid use. Adherence to checks been an ongoing challenge with this patient. Tolerating current regimen well though did identify patient taking less bolus insulin than prescribed. Will continue at dose she is currently using d/t lack of BG data available. Renal fxn appropriate for continued therapy. Given A1c now at goal and that patient is now following with new PCP outside of pharmD's CPA scope, patient to be discharged from pharmD services. Plan: No DM med changes made: Continue Linagliptin 5 mg daily Continue Levemir 50 units in the AM, 80 units in the PM Continue Humalog 40 units TID AC meals -- Rx updated Refills sent for all DM med and testing supplies Patient instructed to RESUME checking BGs 4 times daily. To check via fingerprick when not wearing CGM sensor. Otherwise, to scan FreeStyle Gabrielle 2 sensor at least every 8 hours. Pt to call PCP if > 1 hypoglycemic episode Recommended positive lifestyle modifications including portion control, low-carb diet, and as much physical activity as able A1c recheck due 09/23/22 Foot exam: due NOW Eye exam: due NOW Patient to be discharged from pharmD services FOLLOW UP PharmD follow up: N/A PCP follow up: not yet scheduled Patient verbalized understanding of instructions. The majority of the pharmacy visit (> 50%) was spent counseling and/or coordinating care for thepatient. [Telephonic] time was 30 minutes. Thank you, Susan Cuello, [place], BCACP documented in this encounterWright-[facility]09-07-[facility]22 Miscellaneous Notes* Telephone Encounter - Solange Arenas RN - 07/05/2022 8:36 AM EDT Patient called the [facility] with concerns regarding increased swelling. Denies dietary indiscretion and cannot stand long enough to be weighed. Patient had a virtual visit with her new primary on 8/26/22 and swelling was noted. She is no longer with Dr. Deng. Patient states her primary increased her primary increased her Lasix from 20 mg daily to 20 mg BID x 2 weeks and encouraged her to call the [facility]. She is scheduled for a phone visit with the [facility] on 07/21/22. Patient states that she forgets to take the second dose of Lasix. Review of note from primary states that the patient was to take 40 mg of Lasix daily. Encouraged patient to take 2 tablets of her 20 mg Lasix (40 mg) daily x 2 weeks as directed by primary. Patient advised to call the [facility] if swelling increases or symptoms develop. Patient verbalized understanding. documented in this encounterWright-Pat[facility]09-07-2022 Instructions* Patient Instructions* Agustin Barahona APRN.CNP - 07/05/2022 8:22 AM EDT 1-call HF clinic to see if you can get in sooner for probable IV lasix 2-please set a reminder to take your 2nd dose of lasix 3-take prednisone taper as prescribed. Please adjust insulin appropriately during this time. Can use calamine lotion on rash 4-continue to toilet yourself regularly to prevent UTIs 5-please establish with nephrology 6-please get established with home care 7-if leg swelling worsens and their is an increase concern for cellulitis please let me know. documented in this encounterWright-Pat[facility]09-07-2022 History of Present illness Narrative* Agustin Barahona APRN.CNP - 07/05/2022 8:01 AM EDT VIRTUAL VISIT PROGRESS NOTE This is a virtual visit using [employer] video visit. It required patient-provider interaction for themedical decision making as documented below. Kimberly Patel is a 66 year old female seen for 3 week follow-up. Pt presents with daughter. Pt lastseen in office on 06/23/22 to establish with provider. Hx of CKD, recurrent UTI, constipation, CHF, COPD on O2, and DM. At last apt pt was diagnosed with cellulitis. Leg swelling is still prominent. Pt states that she forgets to take her 2nd dose of lasix. She is set to see HF clinic next week. 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 Pt endorses finishing antibiotic. Pt concerned for rash. Rash at last apt was on chest and R upper arm. Pt was using Triamolone cream. Rash is now on chest and face. No changes in home products, no one else in home has rash. Pt reports itching. Denies pain, burning or blistering. Pt states sometimes when she scratches them a littlebit of clear fluid will come out. HISTORY REVIEWED (electronic chart updated): PAST MEDICAL HISTORY Diagnosis Date Asthma CAD (coronary artery disease) s/p stent. last one >5 years ago CHF (congestive heart failure) ([facility]) COPD (chronic obstructive pulmonary disease) ([facility]) DM2 (diabetes mellitus, type 2) ([facility]) HTN (hypertension) Mixed hyperlipidemia Pneumonia due to COVID-19 virus 10/13/2020 PAST SURGICAL HISTORY Procedure Laterality Date REMOVAL GALLBLADDER FAMILY HISTORY Problem Relation Age of Onset Breast Cancer Mother Diabetes Mother Colon Cancer Father Diabetes Father Diabetes Sister Heart Brother Diabetes Brother Social History Tobacco Use Smoking status: Former Types: Cigarettes Quit date: 08/2011 Years since quittin.8 Smokeless tobacco: Never Vaping Use Vaping Use: Never used Substance Use Topics Alcohol use: Never Drug use: Never Current Outpatient Medications Medication Sig predniSONE (DELTASONE) 10 mg tablet Take 4 tablets by mouth once daily for 4 days, THEN 3 tablets once daily for 3 days, THEN 2 tablets once daily for 2 days, THEN 1 tablet once daily for 1 day. pregabalin (LYRICA) 75 mg capsule Take 1 capsule by mouth twice daily for 180 days. psyllium husk, with sugar, (METAMUCIL) 3.4 gram packet Take 1 Packet by mouth once daily. furosemide (LASIX) 20 mg tablet Take 2 tablets by mouth once daily. insulin detemir U-100 (LEVEMIR FLEXTOUCH U-100 INSULIN) 100 unit/mL (3 mL) injection pen Inject 50 units subcutaneously in the AM, 80 units subcutaneously in the PM Insulin Conover, Disposable, (PEN NEEDLE) 31 gauge x 16 Use as directed to inject insulin 5 times daily as directed. insulin: yes, E11.42 albuterol HFA (PROVENTIL HFA, VENTOLIN HFA) 90 mcg/actuation inhaler Inhale 2 puffs by mouth every 4 hours as needed for wheezing/shortness of breath fluticasone-vilanterol (BREO ELLIPTA) 200-25 mcg/dose inhaler Inhale 1 puff by mouth every day as directed ezetimibe (ZETIA) 10 mg tablet TAKE 1 TABLET BY MOUTH EVERY DAY linaGLIPtin (TRADJENTA) 5 mg tab Take 1 tablet by mouth once daily. insulin lispro (HUMALOG KWIKPEN INSULIN) 200 unit/mL (3 mL) injection Inject 44 units subcutaneously before breakfast, 44 units subcutaneously before lunch, 44 units subcutaneously before dinner. Administer this within 15 minutes before your meals or immediately after your meals. metoprolol succinate ER (TOPROL XL) 25 mg 24 hr tablet Take 1 tablet by mouth every day isosorbide mononitrate ER (IMDUR) 30 mg 24 hr tablet Take 1 tablet by mouth once daily. nitroglycerin sublingual (NITROQUICK) 0.4 mg SL tablet Dissolve 1 tablet under the tongue as neededfor chest pain. If no pain relief call 911. losartan (COZAAR) 50 mg tablet Take 1 tablet by mouth every day atorvastatin (LIPITOR) 80 mg tablet Take 1 tablet by mouth every day lancets 33 gauge mupirocin (BACTROBAN) 2 % ointment as needed. albuterol (PROVENTIL) 2.5 mg /3 mL (0.083 %) nebulizer solution Use 3 mL via nebulizer every 4 hours as needed for wheezing/shortness of breath. flash glucose scanning reader (FREESTYLE GABRIELLE 2 READER) 1 Each. Use as directed to check blood sugars 3 times daily. Scan FreeStyle Gabrielle 2 sensors at least every 8 hours. flash glucose sensor (FREESTYLE GABRIELLE 2 SENSOR) kit 2 Each. Use as directed to check blood sugars 3times daily. Scan FreeStyle Gabrielle 2 sensors at least every 8 hours. Replace sensor every 14 days. omeprazole (PRILOSEC) 20 mg capsule Take 1 capsule by mouth once daily. Lancets lancets Use as directed to check blood sugar 3 times daily, insulin: yes, E11.9 Lancing Device (LANCING DEVICE WITH LANCETS) misc Use as directed to check blood sugar 3 times daily, insulin: yes, E11.9 HYDROcodone-Acetaminophen (NORCO) 7.5-325 mg per tablet Take 1 tablet by mouth once daily as neededfor pain. polyethylene glycol 3350 (MIRALAX, GLYCOLAX) 17 gram packet Take 1 Packet by mouth once daily as needed (constipation). WALKER ROLLATOR SEAT WITH 6 WHEELS - RED Walker rollator with seat aspirin, enteric coated (ASPIRIN, ENTERIC COATED) 81 mg EC tablet Take 81 mg by mouth once daily. ranolazine SR (RANEXA) 1,000 mg tab ER 12 hr Take 1,000 mg by mouth twice daily. No current facility-administered medications for this visit. ALLERGIES Allergen Reactions Dilaudid [Hydromorp* Vomiting Jardiance [Empaglif* Other: See Comments UTI Metformin Diarrhea Morphine Vomiting Ondansetron Unknown Penicillins Rash Trulicity [Dulaglut* GI Upset Nausea/Vomiting REVIEW OF SYSTEMS: GENERAL: feeling well without fatigue, no recent change in weight, no fever RESPIRATORY: no cough, no wheezing or shortness of breath CARDIOVASCULAR: no chest pain, no palpitations, R leg worse then L leg with swelling. Slight redness noted, but fading SKIN: scabs noted on R upper arm, chest, neck and face from itching. PHYSICAL EXAMINATION: VIDEO EXAM: (if completed, performed via video enabled technology) GENERAL: alert and appropriate, in no distress, well-hydrated, well nourished, and happy, smiling, interactive NECK: full ROM, no cervical LNs noted RESPIRATORY: breathing non-labored SKIN: See ROS. ASSESSMENT/PLAN: 1. Cellulitis of right lower extremity - ICD9: 682.6, ICD10: L03.115 (primary diagnosis) - improving -pt and daughter educated on red flag symptoms on when to contact PCP office -educated pt on improvement based on better control of HF. 2. Rash - ICD9: 782.1, ICD10: R21 -if no improvement will refer to derm - pt educated on increasing meal time insulin appropriately to compensate for steroid use. Pt states she will discuss with pharmacist today - PREDNISONE 10 MG TABLET 3. Chronic diastolic congestive heart failure (HCC) - ICD9: 428.32, 428.0, ICD10: I50.32 -call HF clinic today if she can get apt sooner -take lasix BID 4. Type 2 diabetes mellitus with diabetic polyneuropathy, with long-term current use of insulin (HCC) - ICD9: 250.60, 357.2, V58.67, ICD10: E11.42, Z79.4 improved control - Continue current medications -continue to follow with pharmacy 5. Stage 3b chronic kidney disease (HCC) - ICD9: 585.3, ICD10: N18.32 -get established with nephrology Patient Instructions 1-call HF clinic to see if you can get in sooner for probable IV lasix 2-please set a reminder to take your 2nd dose of lasix 3-take prednisone taper as prescribed. Please adjust insulin appropriately during this time. Can use calamine lotion on rash 4-continue to toilet yourself regularly to prevent UTIs 5-please establish with nephrology 6-please get established with home care 7-if leg swelling worsens and their is an increase concern for cellulitis please let me know. I spent a total of 20 minutes on the date of the service which included preparing to see the patient, [id number] patient care, completing clinical documentation, obtaining and/or reviewing separately obtained history, performing a medically appropriate examination, counseling and educating the pat ient/family/caregiver, and ordering medications, tests, or procedures Agustin Barahona APRN.TOUR ACTOR documented in this encounterWright-Patterson [facility]09-02-2022 Miscellaneous Notes* Telephone Encounter - Modesta Hager - 06/30/2022 6:07 PM EDT Patient, , states she is cancelling [facility] Services and now has a new PCP as of 06/23/22. Modesta Hager * Telephone Encounter - Domenica Olvera - 06/29/2022 8:54 AM EDT Please call pt to verify if she will be continuing with [facility] or staying with her currently listed PCP and update chart accordingly. Domenica Olvera documented in this encounterWright-Patterson Medical Center08-31-2022 Miscellaneous Notes* Telephone Encounter - Sourav Hill - 06/28/2022 11:20 AM EDT I did cancel the appointment for the PSG PAP Titration that had been scheduled for 07/10/22. Sourav Hill * Telephone Encounter - Agustin Barahona APRN.CNP - 06/26/2022 5:12 PM EDT Consult for sleep medicine placed. Agustin Barahona APRN.CNP * Telephone Encounter - Sourav Hill - 06/26/2022 4:03 PM EDT PAP titration PSG was scheduled, so I called patient with update. She stated she feels it's not another sleep study she needs or wants, rather she would like to talk with someone who could inform her of other options for equipment - beyond the traditional CPAP equipment. Would it perhaps help to have the patient referred to sleep medicine? Or something else that might benefit based on her concerns? For now I left her sleep study appointment on the schedule (07/10/22 at 8pm). Patient's phone number is: [phone] Please advise. Thank you. Sourav Hill .sourav documented in this encounterWright-Patterson Medical Center08-30-2022 Miscellaneous Notes* Telephone Encounter - Sourav Hill - 06/27/2022 9:57 AM EDT Referral was submitted for patient via [facility] portal to: SLEEP MEDICINE Confirmation number: [id number] Sourav Hill documented in this encounterWright-Patterson Medical Center08-29-2022 Miscellaneous Notes* Telephone Encounter - Sourav Hill - 06/26/2022 4:16 PM EDT Faxed referral for home health to [facility] no. [phone] Sourav Sergio documented in this encounterWright-Patterson Medical Center08-29-2022 Miscellaneous Notes* Telephone Encounter - Davis Loving MA - 06/26/2022 2:39 PM EDT Patient advised of message. Davis Loving MA * Telephone Encounter - Davis Loving MA - 06/26/2022 2:39 PM EDT ----- Message from Agustin Barahona APRN.CNP sent at 06/26/2022 11:14 AM EDT ----- Kimberly, Your labs are stable and are showing improvement in many areas. Please continue limit your foods high in fat, and cholesterol. Continue to work with pharmacy in managing your DM. Agustin Barahona APRN.CNP documented in this encounterWright-Patterson Medical Center08-29-2022 Miscellaneous Notes* Telephone Encounter - Porsha Mejia RN - 06/26/2022 11:37 AM EDT Requesting order for continued follow [facility] with the [facility] documented in this encounterWright-Patterson Medical Center08-26-2022 Instructions* Patient Instructions* Agustin Barahnoa APRN.CNP - 06/23/2022 1:45 PM EDT 1-take 40 mg lasix daily for 2 weeks 2-take bactrim twice a day for 7 days 3-utilize home care to increase self care and mobility 4-stop colace, use Metamucil daily 5-get established with nephrology 6-get appointment with cardiology 7-continue to follow with pharmacy for DM management 8-continue to follow with HF clinic 9-use hydrocortisone cream on rash documented in this encounterWright-Patterson Medical Center08-26-2022 History of Present illness Narrative* Agustin Barahona APRN.CNP - 06/23/2022 1:00 PM EDT Images from the original note were not included. [facility] [address] [place] [address] Date of Evaluation: 06/25/2022 Patient Name: Kimberly Patel : 1955 Chief Complaint: Patient presents with: New Patient Evaluation Nursing Intake: There are no exam notes on file for this visit. Subjective Ms. Patel is a 66 year old female who presents with the following complaint(s): HPI Pt presents to establish with provider. Pt seen last at [facility] by Dr. Moe Meyer in November for hospital follow up. Hx of uncontrolled DM, CHF, COPD, respiratory failure on O2, CAD and morbid obesity. Pt has been following with pharmacy for assistance in managing her DM. Pt was managed by Dr. Deng from home care. Pt and daughter was unsatisfied with care. Pt follows with Dr. Silva from cardiology. Pt is scheduled to follow with the HF. Does endorse SOB at bedtime. Pt has hx of DIAY, does not tolerate CPAP. Improvement in diet per their report still eating a lot of processed foods trying to limit salt intake. A1C in office today 7.6 Pt is in cont of stool and urine intermittently. Review of Systems Constitutional: Negative for activity change, appetite change, chills, diaphoresis, fatigue, fever and unexpected weight change. HENT: Negative for congestion, ear pain, mouth sores, nosebleeds, postnasal drip and rhinorrhea. Eyes: Negative for pain and visual disturbance. Respiratory: Positive for apnea and shortness of breath. Negative for cough, chest tightness and wheezing. Cardiovascular: Positive for leg swelling. Negative for chest pain and palpitations. Gastrointestinal: Positive for constipation. Negative for abdominal distention, abdominal pain, blood in stool, diarrhea, nausea and vomiting. Endocrine: Negative for polydipsia, polyphagia and polyuria. Genitourinary: Positive for enuresis. Negative for decreased urine volume, difficulty urinating, dysuria, frequency, hematuria and urgency. Musculoskeletal: Positive for back pain and myalgias. Negative for arthralgias, gait problem and joint swelling. Skin: Negative for rash and wound. Neurological: Negative for dizziness, tremors, syncope, weakness, light- headedness, numbness and headaches. Hematological: Does not bruise/bleed easily. Psychiatric/Behavioral: Negative for confusion, dysphoric mood and sleep disturbance. The patient is not nervous/anxious. PAST MEDICAL HISTORY Diagnosis Date Asthma CAD (coronary artery disease) s/p stent. last one >5 years ago CHF (congestive heart failure) ([facility]) COPD (chronic obstructive pulmonary disease) ([facility]) DM2 (diabetes mellitus, type 2) ([facility]) HTN (hypertension) Mixed hyperlipidemia Pneumonia due to COVID-19 virus 10/13/2020 PAST SURGICAL HISTORY Procedure Laterality Date REMOVAL GALLBLADDER FAMILY HISTORY Problem Relation Age of Onset Breast Cancer Mother Diabetes Mother Colon Cancer Father Diabetes Father Diabetes Sister Heart Brother Diabetes Brother Social History Tobacco Use Smoking status: Former Types: Cigarettes Quit date: 08/2011 Years since quittin.8 Smokeless tobacco: Never Vaping Use Vaping Use: Never used Substance Use Topics Alcohol use: Never Drug use: Never Current Outpatient Medications Medication Sig Dispense Refill insulin detemir U-100 (LEVEMIR FLEXTOUCH U-100 INSULIN) 100 unit/mL (3 mL) injection pen Inject 50 units subcutaneously in the AM, 80 units subcutaneously in the PM Insulin Conover, Disposable, (PEN NEEDLE) 31 gauge x 01/11 Use as directed to inject insulin 5 times daily as directed. insulin: yes, E11.42 200 Each 11 albuterol HFA (PROVENTIL HFA, VENTOLIN HFA) 90 mcg/actuation inhaler Inhale 2 puffs by mouth every 4 hours as needed for wheezing/shortness of breath 1 Inhaler 11 fluticasone-vilanterol (BREO ELLIPTA) 200-25 mcg/dose inhaler Inhale 1 puff by mouth every day as directed 1 Each 11 ezetimibe (ZETIA) 10 mg tablet TAKE 1 TABLET BY MOUTH EVERY DAY 90 tablet 2 linaGLIPtin (TRADJENTA) 5 mg tab Take 1 tablet by mouth once daily. 30 tablet 5 insulin lispro (HUMALOG KWIKPEN INSULIN) 200 unit/mL (3 mL) injection Inject 44 units subcutaneously before breakfast, 44 units subcutaneously before lunch, 44 units subcutaneously before dinner. Administer this within 15 minutes before your meals or immediately after your meals. metoprolol succinate ER (TOPROL XL) 25 mg 24 hr tablet Take 1 tablet by mouth every day 30 tablet 5 isosorbide mononitrate ER (IMDUR) 30 mg 24 hr tablet Take 1 tablet by mouth once daily. 90 tablet 3 nitroglycerin sublingual (NITROQUICK) 0.4 mg SL tablet Dissolve 1 tablet under the tongue as neededfor chest pain. If no pain relief call 911. 25 Bottle of 25 3 losartan (COZAAR) 50 mg tablet Take 1 tablet by mouth every day 30 tablet 11 atorvastatin (LIPITOR) 80 mg tablet Take 1 tablet by mouth every day 30 tablet 11 lancets 33 gauge 11 mupirocin (BACTROBAN) 2 % ointment as needed. albuterol (PROVENTIL) 2.5 mg /3 mL (0.083 %) nebulizer solution Use 3 mL via nebulizer every 4 hours as needed for wheezing/shortness of breath. 30 Vial 2 flash glucose scanning reader (FREESTYLE GABRIELLE 2 READER) 1 Each. Use as directed to check blood sugars 3 times daily. Scan FreeStyle Gabrielle 2 sensors at least every 8 hours. flash glucose sensor (FREESTYLE GABRIELLE 2 SENSOR) kit 2 Each. Use as directed to check blood sugars 3times daily. Scan FreeStyle Gabrielle 2 sensors at least every 8 hours. Replace sensor every 14 days. omeprazole (PRILOSEC) 20 mg capsule Take 1 capsule by mouth once daily. 90 capsule 2 Lancets lancets Use as directed to check blood sugar 3 times daily, insulin: yes, E11.9 200 Each 11 Lancing Device (LANCING DEVICE WITH LANCETS) misc Use as directed to check blood sugar 3 times daily, insulin: yes, E11.9 1 Each 3 HYDROcodone-Acetaminophen (NORCO) 7.5-325 mg per tablet Take 1 tablet by mouth once daily as neededfor pain. polyethylene glycol 3350 (MIRALAX, GLYCOLAX) 17 gram packet Take 1 Packet by mouth once daily as needed (constipation). 30 Packet 1 WALKER ROLLATOR SEAT WITH 6 WHEELS - RED Walker rollator with seat 1 Each 0 aspirin, enteric coated (ASPIRIN, ENTERIC COATED) 81 mg EC tablet Take 81 mg by mouth once daily. ranolazine SR (RANEXA) 1,000 mg tab ER 12 hr Take 1,000 mg by mouth twice daily. pregabalin (LYRICA) 75 mg capsule Take 1 capsule by mouth twice daily for 180 days. 60 capsule 5 psyllium husk, with sugar, (METAMUCIL) 3.4 gram packet Take 1 Packet by mouth once daily. 90 Packet0 furosemide (LASIX) 20 mg tablet Take 2 tablets by mouth once daily. 90 tablet 1 sulfamethoxazole-trimethoprim (BACTRIM DS) 800-160 mg per tablet Take 1 tablet by mouth twice dailyfor 7 days. 14 tablet 0 No current facility-administered medications for this visit. I have confirmed and edited as necessary the chief complaint, medications, past medical, family andsocial histories obtained by others. Objective BP 122/60 Pulse 77 Temp (Src) 97.9 (Tympanic) Ht 5' 5 (1.65m) SpO2 98% Physical Exam Vitals and nursing note reviewed. Constitutional: General: She is awake. She is not in acute distress. Appearance: Normal appearance. She is well-groomed. She is not ill-appearing, toxic-appearing or diaphoretic. HENT: Head: Normocephalic and atraumatic. Right Ear: Tympanic membrane, ear canal and external ear normal. There is no impacted cerumen. Left Ear: Tympanic membrane, ear canal and external ear normal. There is no impacted cerumen. Nose: Nose normal. No congestion or rhinorrhea. Mouth/Throat: Mouth: Mucous membranes are moist. Pharynx: Oropharynx is clear. No oropharyngeal exudate or posterior oropharyngeal erythema. Eyes: General: No scleral icterus. Right eye: No discharge. Left eye: No discharge. Extraocular Movements: Extraocular movements intact. Conjunctiva/sclera: Conjunctivae normal. Pupils: Pupils are equal, round, and reactive to light. Comments: Wears corrective lenses Cardiovascular: Rate and Rhythm: Normal rate and regular rhythm. Pulses: Normal pulses. Heart sounds: Normal heart sounds. No murmur heard. Pulmonary: Effort: Pulmonary effort is normal. No respiratory distress. Breath sounds: Decreased air movement present. No stridor. Decreased breath sounds (all lobes) present. No wheezing, rhonchi or rales. Chest: Chest wall: No tenderness. Abdominal: General: Bowel sounds are normal. There is no distension. Palpations: Abdomen is soft. There is no mass. Tenderness: There is no abdominal tenderness. There is no right CVA tenderness, left CVA tenderness, guarding or rebound. Hernia: No hernia is present. Musculoskeletal: General: No swelling, tenderness, deformity or signs of injury. Normal range of motion. Cervical back: Normal, normal range of motion and neck supple. No rigidity or tenderness. Right lower le+ Pitting Edema present. Left lower le+ Pitting Edema present. Lymphadenopathy: Cervical: No cervical adenopathy. Skin: General: Skin is warm and dry. Capillary Refill: Capillary refill takes less than 2 seconds. Findings: Erythema present. No rash. Comments: Erythema, warmth ans swelling. No seeping noted. Neurological: General: No focal deficit present. Mental Status: She is alert and oriented to person, place, and time. Mental status is at baseline. Cranial Nerves: No cranial nerve deficit. Sensory: No sensory deficit. Motor: No weakness. Coordination: Coordination normal. Gait: Gait normal. Deep Tendon Reflexes: Reflexes normal. Psychiatric: Attention and Perception: Attention normal. Mood and Affect: Mood normal. Speech: Speech normal. Behavior: Behavior normal. Behavior is cooperative. Thought Content: Thought content normal. Judgment: Judgment normal. Data Reviewed: Most recent labs and imaging results. ASSESSMENT/PLAN: 1. Type 2 diabetes mellitus with diabetic polyneuropathy, with long-term current use of insulin ([facility]) - ICD9: 250.60, 357.2, V58.67, ICD10: E11.42, Z79.4 (primary diagnosis) improved control - Continue current medications - HEMOGLOBIN A1C (POC) - PREGABALIN 75 MG CAPSULE - CONSULT TO HOME HEALTH CARE - CBC + DIFF - COMP METABOLIC PANEL 2. Cellulitis of right lower extremity - ICD9: 682.6, ICD10: L03.115 - No lymphangetic streaking, this was defined for patient to watch for and to seek medical care immediately if appears - Follow up for recheck in prn - SULFAMETHOXAZOLE 800 MG-TRIMETHOPRIM 160 MG TABLET 3. Physical deconditioning - ICD9: 799.3, ICD10: R53.81 -home PT and OT - CONSULT TO HOME HEALTH CARE 4. DIYA (obstructive sleep apnea) - ICD9: 327.23, ICD10: G47.33 - PAP TITRATION PSG (CPAP, BIPAP, ASV) 5. Chronic constipation - ICD9: 564.00, ICD10: K59.09 - PSYLLIUM HUSK (WITH SUGAR) 3.4 GRAM ORAL POWDER PACKET 6. Recurrent UTI (urinary tract infection) - ICD9: 599.0, ICD10: N39.0 Pt currently does not have UTI, based on signs and symptoms. Body habitus, and facal incontinence likely play a role in pt's recurrent UTI. DM better controlled. - Patient education for prevention given 7. Chronic respiratory failure with hypoxia (HCC) - ICD9: 518.83, 799.02, ICD10: J96.11 - CONSULT TO HOME HEALTH CARE 8. Chronic obstructive pulmonary disease, unspecified COPD type (HCC) - ICD9: 496, ICD10: J44.9 - CONSULT TO HOME HEALTH CARE 9. Chronic heart failure with preserved ejection fraction (HFpEF) (HCC) - ICD9: 428.9, ICD10: I50.32 - FUROSEMIDE 20 MG TABLET increase to 40 fr 2 weeks. -follow with HF as scheduled 10. Coronary artery disease involving [place] coronary artery of [place] heart without angina pectoris - ICD9: 414.01, ICD10: I25.10 -schedule annual apt with cardiology - LIPID PANEL BASIC 11. Stage 3b chronic kidney disease (HCC) - ICD9: 585.3, ICD10: N18.32 -establish with nephrology 12. Elevated TSH - ICD9: 794.5, ICD10: R79.89 - TSH BLD Agustin Barahona APRN.TOUR ACTOR Return in about 3 weeks (around 07/14/2022). Discussed the above with the patient using shared decision making. The patient is in agreement with the diagnostic and treatment plans. documented in this encounterWright-Patterson Medical Center08-15-2022 NoteHNO ID: [id number] Author: Susan Cuello RPh Service: ? Author Type: Pharmacist Type: Progress Notes Filed: 06/14/2022 8:43 AM Note Text: Primary Care Pharmacy Visit Patient consents to pharmacy consult agreement. CC (Reason for Consult): Type 2 diabetes mellitus with diabetic polyneuropathy, with long-term current use of insulin (HCC) - ICD9: 250.60, 357.2, V58.67, ICD10: E11.42, Z79.4 Goal: A1c <8% Last Collaborating Physician Visit: [facility] (Dr. Deng), 03/22/22 [facility] (HEAD REFRIGERATING ENGINEER Shea Childers), 04/13/22 Kimberly Patel is a 66 year old female presenting for follow up visit by telephone. Patient consents to pharmacy collaborative practice agreement. . HPI: patient was diagnosed with T2DM >10 yrs ago (pt uncertain of year). Established with pharmacist for diabetes management on 08/05/21 INTERIM HISTORY: Last seen by pharmacy on 05/23/22 at which time: BGs above goal on ave however, with improvement (TIR 45%) BG excursions mostly in PM Identified to be taking bolus insulin differently than prescribed Increased AM basal insulin by ~20% and bolus insulin by ~10% Adjusted insulin pen needle size to 5 mm SUBJECTIVE: Doing well and denies any current questions or concerns Reports her pharmacy has continued to fill her insulin needles as the 8 mm. States her pharmacy has some new staff which has been a challenge. Has been trying to pinch her skin with use of these needles until she fills the 5 mm size Current DM medications: linagliptin 5 mg daily Levemir 48 units in the AM, 80 units in the PM -- reports using 44 units in the AM, 80 units QHS Humalog 44 units before breakfast, 44 units before lunch, 44 units before dinner -- reports using 40 units TID with meals Previously trialed DM medications: Sitagliptin -- changed to linagliptin Metformin IR -- stopped in Jan 2021 d/t diarrhea Jardiance -- stopped d/t h/o severe UTIs resulting in sepsis Trulicity -- stopped d/t severe nausea DIET: Recent Diet changes: more fast food Meals: 2-3 meals/day (no set meals); daughter cooks for her at night; grazes in daytime Trying to follow diet set by HF clinic Daughter brings her the meals (not at set time each day) Mostly processed food in the day Breakfast: 5-7 strawberries, coffee Lunch: sandwich (deli-sandwhich, egg salad, PBANDJ, tuna fish) Dinner (~6:30-7 pm): chicken, veggies, stuffing or carbs Snacks: fresh fruit (oranges, apples) - not usually at bedtime Beverages: caffiene coffee (with cream; 1 cup/day), water (64 oz/day), V8 juice (once weekly), regular pepsi (1 every 2 weeks) Sodium Intake: does NOT add; uses Ms. Dash (HF sodium-free diet); does reportedly lightly salt pakistani fries infrequently EXERCISE: walks around inside of house. Has difficulty walking; can stand and pivot. Uses office chair with wheels to move around the inside of house. Reports having displaced vertebrae pushing on nerve and degenerative disk disease limiting her ability to walk. SOCIAL Hx: Tobacco: denies Alcohol: denies Illicits: denies ROS: Patient denies CP, SOB, HEAD, blurred vision, dizziness or lightheadedness Patient denies nausea, vomiting, diarrhea, abdominal pain Patient denies symptoms of hypoglycemia (sweating, anxiety, palpitations, hunger, and tremor) Patient denies symptoms of hyperglycemia (polyuria, polydipsia, polyphagia) Patient denies potential medication adverse effects Past medical, family and social history reviewed and updated. ACTIVE PROBLEM LIST Diya (Obstructive Sleep Apnea) Chf (Congestive Heart Failure) ([facility]) Type 2 Diabetes Mellitus With Diabetic Polyneuropathy, With Long-Term Current Use of Insulin ([facility]) Coronary Arteriosclerosis in [place] Artery Bipolar Disorder ([facility]) Mixed Hyperlipidemia Class 3 Severe Obesity With Serious Comorbidity and Body Mass Index (Bmi) of 45.0 to 49.9 in Adult ([facility]) Chronic Respiratory Failure With Hypoxia ([facility]) Chronic Obstructive Pulmonary Disease ([facility]) Physical Debility Recurrent Uti (Urinary Tract Infection) Primary Hypertension Stage 3b Chronic Kidney Disease ([facility]) Microalbuminuria Restrictive Lung Disease Chronic Heart Failure With Preserved Ejection Fraction (Hfpef) ([facility]) Requires Assistance With Activities of Daily Living ([facility]) Weakness of Both Legs Ddd (Degenerative Disc Disease), Lumbar Spondylolisthesis of Lumbar Region Trigger Middle Finger of Right Hand History of Covid-19 Slow Transit Constipation PAST MEDICAL HISTORY Diagnosis Date Asthma CAD (coronary artery disease) s/p stent. last one >5 years ago CHF (congestive heart failure) ([facility]) COPD (chronic obstructive pulmonary disease) (HCC) DM2 (diabetes mellitus, type 2) ([facility]) HTN (hypertension) Mixed hyperlipidemia Pneumonia due to COVID-19 virus 10/13/2020 ALLERGIES Allergen Reactions Dilaudid [Hydromorp* Vomiting Jardiance [Empaglif* Other: See Comments UTI Metformin Diar (more content not included)...[facility] 06-09-2022 Miscellaneous Notes* Telephone Encounter - Frankie Deng MD - 06/09/2022 2:30 PM EDT Breo and albuterol INH eRx'd to [facility]. documented in this encounterWright-Patterson Medical Center08-02-2022 Miscellaneous Notes* Telephone Encounter - Merissa Browne LPN - 05/30/2022 8:03 AM EDT Patient's request for medication is as follows: Pending Prescriptions Disp Refills EZETIMIBE 10 MG TABLET 90 tablet 2 Sig: TAKE 1 TABLET BY MOUTH EVERY DAY PETE: Yes Last seen 02/27/2022. Prescription(s) as above. Please process accordingly. Merissa Browne LPN documented in this encounterWright-Patterson Medical Center07-26-2022 NoteHNO ID: [id number] Author: Susan Cuello [facility] Service: ? Author Type: Pharmacist Type: Progress Notes Filed: 05/24/2022 3:58 PM Note Text: Primary Care Pharmacy Visit Patient consents to pharmacy consult agreement. CC (Reason for Consult):?Type 2 diabetes mellitus with diabetic polyneuropathy, with long-term current use of insulin ([facility]) - ICD9: 250.60, 357.2, V58.67, ICD10: E11.42, Z79.4 ? Goal: A1c <8% Last Collaborating Physician Visit:?[facility] (Dr. Deng), 03/22/22 [facility] (HEAD REFRIGERATING ENGINEER Shea Childers),?04/13/22 Kimberly Patel is a 66 year old female presenting for follow up visit by telephone. Patient consents to pharmacy collaborative practice agreement. . HPI: patient was diagnosed with?T2DM?>10 yrs ago (pt uncertain of year).?Established with pharmacist for diabetes management on 08/05/21. INTERIM HISTORY: Last seen by pharmacy on 05/10/22 at which time: - BGs with recent worsening though closer to target range since returning home from the hospital - Identified pt was receiving less insulin in-patient with elevated BGs and then resumed insulin at slightly lower dosing than prescribed pre-hospital admission upon returning home - Linagliptin recently resumed after not given in-patient - Decreased PM Levemir by ~10% and continued other decreased insulin doses pt has been taking since being home - Reviewed importance of med adherence SUBJECTIVE: - Just woke up but feeling good - Reports her pharmacy recently dispensed the longer 8 mm insulin pen needles. 5 mm size needles most recently prescribed as patient has difficulty with skin pinch. o Plans to hand picker shorter needles soon Current?DM medications:? ? linagliptin?5 mg daily ? Levemir?60?units in the AM, 77 units in the PM -- reports taking 40 units in the AM, 80 units in the PM ? Humalog?40?units?before breakfast,?40?units before lunch,?40?units before dinner? Previously?trialed DM medications: ? Sitagliptin --?changed to linagliptin ? Metformin IR --?stopped in Jan 2021 d/t diarrhea ? Jardiance ?-- stopped d/t h/o severe UTIs resulting in sepsis ? Trulicity ?-- stopped d/t severe nausea ? ? DIET: ? Recent Diet changes:? none ? Meals:?2-3?meals/day (no set meals); daughter cooks for her at night; grazes in daytime ? Trying to follow diet set by HF clinic ? Daughter brings her the meals (not at set time each day) ? Mostly processed food in the day ? Breakfast:?5-7 strawberries, coffee ? Lunch:?sandwich (deli-sandwhich,?egg salad, PBANDJ, tuna fish) ? Dinner?(~6:30-7 pm):?chicken, veggies, stuffing or carbs ? Snacks:?fresh fruit (oranges, apples) - not usually at bedtime ? Beverages:?caffiene coffee (with cream; 1 cup/day), water (64 oz/day), V8 juice (once weekly), regular pepsi (1 every 2 weeks) ? Sodium Intake:?does NOT add; uses MsBrandi Dash (HF sodium-free diet); does reportedly lightly salt pakistani fries infrequently ? EXERCISE:?walks around inside of house. Has difficulty walking; can stand and pivot. Uses office chair with wheels to move around the inside of house.?Reports having displaced vertebrae pushing on nerve and degenerative disk disease limiting her ability to walk. ? SOCIAL Hx: ? Tobacco:?denies ? Alcohol:?denies ? Illicits:?denies ROS: - Patient denies CP, SOB, HEAD, blurred vision, dizziness or lightheadedness - Patient denies nausea, vomiting, diarrhea, abdominal pain - Patient denies symptoms of hypoglycemia (sweating, anxiety, palpitations, hunger, and tremor) - Patient denies symptoms of hyperglycemia (polyuria, polydipsia, polyphagia) - Patient denies potential medication adverse effects Past medical, family and social history reviewed and updated. ACTIVE PROBLEM LIST Diya (Obstructive Sleep Apnea) Chf (Congestive Heart Failure) ([facility]) Type 2 Diabetes Mellitus With Diabetic Polyneuropathy, With Long-Term Current Use of Insulin ([facility]) Coronary Arteriosclerosis in [place] Artery Bipolar Disorder ([facility]) Mixed Hyperlipidemia Class 3 Severe Obesity With Serious Comorbidity and Body Mass Index (Bmi) of 45.0 to 49.9 in Adult ([facility]) Chronic Respiratory Failure With Hypoxia ([facility]) Chronic Obstructive Pulmonary Disease ([facility]) Physical Debility Recurrent Uti (Urinary Tract Infection) Primary Hypertension Stage 3b Chronic Kidney Disease ([facility]) Microalbuminuria Restrictive Lung Disease Chronic Heart Failure With Preserved Ejection Fraction (Hfpef) ([facility]) Requires Assistance With Activities of Daily Living (Adl) Weakness of Both Legs Ddd (Degenerative Disc Disease), Lumbar Spondylolisthesis of Lumbar Region Trigger Middle Finger of Right Hand History of Covid-19 Slow Transit Constipation PAST MEDICAL HISTORY Diagnosis Date - Asthma - CAD (coronary artery disease) s/p stent. last one >5 years ago - CHF (congesti (more content not included)...[facility] 05-23-2022 History of Present illness Narrative* Susan Cuello, [facility] - 05/23/2022 2:30 PM EDT Images from the original note were not included. Primary Care Pharmacy Visit Patient consents to pharmacy consult agreement. CC (Reason for Consult): Type 2 diabetes mellitus with diabetic polyneuropathy, with long-term current use of insulin ([facility]) - ICD9: 250.60, 357.2, V58.67, ICD10: E11.42, Z79.4 Goal: A1c <8% Last Collaborating Physician Visit: [facility] (Dr. Deng), 03/22/22 [facility] (HEAD REFRIGERATING ENGINEER Shea Childers), 04/13/22 Kimberly Patel is a 66 year old female presenting for follow up visit by telephone. Patient consentsto pharmacy collaborative practice agreement. . HPI: patient was diagnosed with T2DM >10 yrs ago (pt uncertain of year). Established with pharmacist for diabetes management on 08/05/21. INTERIM HISTORY: Last seen by pharmacy on 05/10/22 at which time: BGs with recent worsening though closer to target range since returning home from the hospital Identified pt was receiving less insulin in-patient with elevated BGs and then resumed insulin at slightly lower dosing than prescribed pre-hospital admission upon returning home Linagliptin recently resumed after not given in-patient Decreased PM Levemir by ~10% and continued other decreased insulin doses pt has been taking since being home Reviewed importance of med adherence SUBJECTIVE: Just woke up but feeling good Reports her pharmacy recently dispensed the longer 8 mm insulin pen needles. 5 mm size needles mostrecently prescribed as patient has difficulty with skin pinch. o Plans to hand picker shorter needles soon Current DM medications: linagliptin 5 mg daily Levemir 60 units in the AM, 77 units in the PM -- reports taking 40 units in the AM, 80 units in the PM Humalog 40 units before breakfast, 40 units before lunch, 40 units before dinner Previously trialed DM medications: Sitagliptin -- changed to linagliptin Metformin IR -- stopped in Jan 2021 d/t diarrhea Jardiance -- stopped d/t h/o severe UTIs resulting in sepsis Trulicity -- stopped d/t severe nausea DIET: Recent Diet changes: none Meals: 2-3 meals/day (no set meals); daughter cooks for her at night; grazes in daytime ? Trying to follow diet set by HF clinic ? Daughter brings her the meals (not at set time each day) ? Mostly processed food in the day Breakfast: 5-7 strawberries, coffee Lunch: sandwich (deli-sandwhich, egg salad, PB&J, tuna fish) Dinner (~6:30-7 pm): chicken, veggies, stuffing or carbs Snacks: fresh fruit (oranges, apples) - not usually at bedtime Beverages: caffiene coffee (with cream; 1 cup/day), water (64 oz/day), V8 juice (once weekly), regular pepsi (1 every 2 weeks) Sodium Intake: does NOT add; uses Ms. Dash (HF sodium-free diet); does reportedly lightly salt pakistani fries infrequently EXERCISE: walks around inside of house. Has difficulty walking; can stand and pivot. Uses office chair with wheels to move around the inside of house. Reports having displaced vertebrae pushing on nerve and degenerative disk disease limiting her ability to walk. SOCIAL Hx: Tobacco: denies Alcohol: denies Illicits: denies ROS: Patient denies CP, SOB, HEAD, blurred vision, dizziness or lightheadedness Patient denies nausea, vomiting, diarrhea, abdominal pain Patient denies symptoms of hypoglycemia (sweating, anxiety, palpitations, hunger, and tremor) Patient denies symptoms of hyperglycemia (polyuria, polydipsia, polyphagia) Patient denies potential medication adverse effects Past medical, family and social history reviewed and updated. ACTIVE PROBLEM LIST Diya (Obstructive Sleep Apnea) Chf (Congestive Heart Failure) ([facility]) Type 2 Diabetes Mellitus With Diabetic Polyneuropathy, With Long-Term Current Use of Insulin ([facility]) Coronary Arteriosclerosis in [place] Artery Bipolar Disorder ([facility]) Mixed Hyperlipidemia Class 3 Severe Obesity With Serious Comorbidity and Body Mass Index (Bmi) of 45.0 to 49.9 in Adult ([facility]) Chronic Respiratory Failure With Hypoxia ([facility]) Chronic Obstructive Pulmonary Disease ([facility]) Physical Debility Recurrent Uti (Urinary Tract Infection) Primary Hypertension Stage 3b Chronic Kidney Disease ([facility]) Microalbuminuria Restrictive Lung Disease Chronic Heart Failure With Preserved Ejection Fraction (Hfpef) ([facility]) Requires Assistance With Activities of Daily Living (Adl) Weakness of Both Legs Ddd (Degenerative Disc Disease), Lumbar Spondylolisthesis of Lumbar Region Trigger Middle Finger of Right Hand History of Covid-19 Slow Transit Constipation PAST MEDICAL HISTORY Diagnosis Date Asthma CAD (coronary artery disease) s/p stent. last one >5 years ago CHF (congestive heart failure) ([facility]) COPD (chronic obstructive pulmonary disease) ([facility]) DM2 (diabetes mellitus, type 2) ([facility]) HTN (hypertension) Mixed hyperlipidemia Pneumonia due to COVID-19 virus 10/13/2020 ALLERGIES Allergen Reactions Dilaudid [Hydromorp* Vomiting Jardiance [Empaglif* Other: See Comments UTI Metformin Diarrhea Morphine Vomiting Ondansetron Unknown Penicillins Rash Trulicity [Dulaglut* GI Upset Nausea/Vomiting MEDICATIONS/SUPPLIES: Pill bottles are not present. Adherence: denies missed doses. Organization System: Integrate Pill-pack for all oral meds (Divvy-Dose) Does the patient have diabetes supplies: Yes ? CGM = [employer] Gabrielle 2; has mobile fern & reader device (via [employer]; $0 co-pay) In current transition to new CGM supply company --> [employer]... ? Glucometer = One touch ultra 2 ? Lancing Device = [facility]: [address] [address] [id number] [place] [address] - [address] - [phone] ? Divvy-Dose for maintenance meds ? [facility] and emergent / short term meds Rx coverage: Payor: [facility] MEDICARE / Plan: [facility] DUAL COMPLETE HMO SNP / Product Type: Medicare / Medication Affordability: No cost concerns at this time Medication List Medication Directions Comments Action/Plan albuterol (PROVENTIL) 2.5 mg /3 mL (0.083 %) nebulizer solution Use 3 mL via nebulizer every 4 hours as needed for wheezing/shortness of breath. albuterol HFA (PROVENTIL HFA, VENTOLIN HFA) 90 mcg/actuation inhaler Inhale 2 Puffs as instructed every 4 hours as needed for wheezing/shortness of breath. aspirin, enteric coated (ASPIRIN LOW DOSE) 81 mg EC tablet Take 81 mg by mouth once daily. atorvastatin (LIPITOR) 80 mg tablet Take 1 tablet by mouth every day ezetimibe (ZETIA) 10 mg tablet TAKE 1 TABLET BY MOUTH EVERY DAY flash glucose scanning reader (FREESTYLE GABRIELLE 2 READER) 1 Each. Use as directed to check blood sugars 3 times daily. Scan FreeStyle Gabrielle 2 sensors at least every 8 hours. flash glucose sensor (FREESTYLE GABRIELLE 2 SENSOR) kit 2 Each. Use as directed to check blood sugars 3times daily. Scan FreeStyle Gbarielle 2 sensors at least every 8 hours. Replace sensor every 14 days. fluticasone-vilanterol (BREO ELLIPTA) 200-25 mcg/dose inhaler Inhale 1 Inhalation as instructed once daily. furosemide (LASIX) 20 mg tablet Take 1 tablet by mouth once daily. HYDROcodone-Acetaminophen (NORCO) 7.5-325 mg per tablet Take 1 tablet by mouth once daily as neededfor pain. insulin detemir U-100 (LEVEMIR FLEXTOUCH U-100 INSULIN) 100 unit/mL (3 mL) injection pen Inject 60 units subcutaneously in the AM, 77 units subcutaneously in the PM reports taking 40 units in the AM, 80 units in the PM See plan insulin lispro (HUMALOG KWIKPEN INSULIN) 200 unit/mL (3 mL) injection Inject 40 units subcutaneously before breakfast, 40 units subcutaneously before lunch, 40 units subcutaneously before dinner. Administer this within 15 minutes before your meals or immediately after your meals. Confirmed Insulin Conover, Disposable, (PEN NEEDLE) 31 gauge x 3/16 Use as directed to inject insulin 5 times daily as directed. insulin: yes, E11.42 isosorbide mononitrate ER (IMDUR) 30 mg 24 hr tablet Take 1 tablet by mouth once daily. lancets 33 gauge None Entered Lancets lancets Use as directed to check blood sugar 3 times daily, insulin: yes, E11.9 Lancing Device (LANCING DEVICE WITH LANCETS) misc Use as directed to check blood sugar 3 times daily, insulin: yes, E11.9 linaGLIPtin (TRADJENTA) 5 mg tab Take 1 tablet by mouth once daily. losartan (COZAAR) 50 mg tablet Take 1 tablet by mouth every day metoprolol succinate ER (TOPROL XL) 25 mg 24 hr tablet Take 1 tablet by mouth every day mupirocin (BACTROBAN) 2 % ointment as needed. nitroglycerin sublingual (NITROQUICK) 0.4 mg SL tablet Dissolve 1 tablet under the tongue as neededfor chest pain. If no pain relief call 911. omeprazole (PRILOSEC) 20 mg capsule Take 1 capsule by mouth once daily. polyethylene glycol 3350 (MIRALAX, GLYCOLAX) 17 gram packet Take 1 Packet by mouth once daily as needed (constipation). pregabalin (LYRICA) 75 mg capsule Take 1 capsule by mouth twice daily for 180 days. ranolazine SR (RANEXA) 1,000 mg tab ER 12 hr Take 1,000 mg by mouth twice daily. WALKER ROLLATOR SEAT WITH 6 WHEELS - RED Walker rollator with seat Rx meds not listed in EPIC: No OTCs: No Herbals/Supplements: No Drug-drug interactions: none identified On ZAHIRA/ARB: yes On Statin: yes GLYCEMIC CONTROL: Glucometer/CGM present at visit: Yes; [employer] 2 synced remotely Summary of CGM Findings: CGM recording is adequate for interpretation; glucose variability: 26.6% (goal <36%) Average glucose is 193 mg/dL Very High (>250 mg/dL) 16% High (181-250 mg/dL) 39% Time in target range (70-180 mg/dL) 45% Low (54-69 mg/dL) <1% Very low (<54 mg/dL) 0% Hypoglycemia: yes; reports a few events since last appointment that were reportedly treated appropriately and resolved o Nocturnal hypoglycemia? - No ? Hypoglycemia awareness: yes (felt weak and shakey) ? How corrected: OJ, pop, cookie, candy; previously reviewed rule of 15 VITALS: There were no vitals taken for this visit. Last 3 Encounter BP Readings: Date: BP: 04/10/2022 148/69 03/22/2022 122/62 09/19/2021 118/56 Wt: 127 kg (280 lb) BMI: 46.59 kg/(m^2) LABS Lab Results Component Value Date HBA1C 10.8 08/26/2021 HBA1C 10.5 11/28/2020 HBA1C 12.1 10/14/2020 HBA1C 8.3 04/12/2020 HBA1C 7.6 12/30/2019 CMP: Glucose 202 04/10/2022 BUN 28 04/10/2022 Creatinine 1.42 04/10/2022 Sodium 141 04/10/2022 Potassium 4.5 04/10/2022 Albumin 3.0 04/10/2022 Calcium 8.4 04/10/2022 AST 18 04/10/2022 ALT 16 04/10/2022 Estimated Creatinine Clearance: 53.7 mL/min (A) (based on SCr of 1.42 mg/dL (H)). eGFR-All Other Races (.) Date Value 08/26/2021 43 Estimated Glomerular Filtration Rate (mL/min/1.73m ) Date Value 04/10/2022 41 Lab Results Component Value Date CHOL 179 08/26/2021 LDL 94 08/26/2021 HDL 41 08/26/2021 TG 219 08/26/2021 Albumin/Creat Ratio (mg/g) Date Value 08/26/2021 Not calculated The 10-year ASCVD risk score (Rutherford EDDIE Jr., et al., 2013) is: 17.7% Values used to calculate the score: Age: 66 years Sex: Female Is Non- : No Diabetic: Yes Tobacco smoker: No Systolic Blood Pressure: 148 mmHg Is BP treated: Yes HDL Cholesterol: 41 mg/dL Total Cholesterol: 179 mg/dL PHARMACOTHERAPY ASSESSMENT/PLAN 1.) Type 2 diabetes mellitus with diabetic polyneuropathy, with long-term current use of insulin ([facility]) - ICD9: 250.60, 357.2, V58.67, ICD10: E11.42, Z79.4 A1c is above goal of <8%. Due for recheck. CGM reveals BGs above goal on average however, with improvement in time in range to 45% in the past 2 weeks. Patient acknowledges some instances of hypoglycemia though reports resolution of these with appropriate treatment. Some BG excursions mostly in PM. Identified to be taking bolus insulin differently than prescribed. Additionally, pt has recently been using the 8 mm size pen needles without skin pinching again, leading to concern of inconsistent insulin absorption. Will increase AM basal insulin by ~20% and bolus insulin by ~10% to aid with BG control today. Renal fxn appropriate for continued therapy. Plan: INCREASE Levemir to 48 units in the AM, 80 units in the PM INCREASE Humalog to 44 units TID AC meals Continue linagliptin 5 mg daily Instructed patient to continue to check BGs 3 times daily and scan FreeStyle Gabrielle 2 sensor at least every 8 hours. Again reminded to check BG via fingerprick when not wearing sensor or as indicated Patient to fill previously prescribed 5 mm size insulin pen needles Discussed appropriate treatment of hypoglycemia with rule of 15. Pt to call office if > 1 hypoglycemic episode Recommended positive lifestyle modifications including portion control, low-carb diet, and as much physical activity as able Again reminded pt to complete A1c recheck Foot exam: due NOW Eye exam: due NOW FOLLOW UP PharmD follow up: 06/12/22 PCP follow up: 06/20/22 Patient verbalized understanding of instructions. The majority of the pharmacy visit (> 50%) was spent counseling and/or coordinating care for thepatient. [Telephonic] time was 30 minutes. Thank you, Susan Cuello PharmD, BCACP documented in this encounterWright-Pat[facility]07-14-[facility]22 Miscellaneous Notes* Telephone Encounter - KRISTIN Mendiola - 05/11/2022 12:57 PM EDT Visit cancelled. Call back not received from family. Will make further attempts to reschedule. KRISTIN Mendiola * Telephone Encounter - KRISTIN Mendiola - 05/10/2022 4:36 PM EDT Left message at [phone] requesting call back to confirm post hospital for 05/12. KRISTIN Mendiola * Telephone Encounter - Frankie Deng MD - 05/08/2022 6:42 PM EDT Page by dtr. Pt DC'd from [facility] yesterday. Had sepsis and UTI. Furosemide held. Later restarted with reduction in edema. Decrease urine output and increased edema. Mild constipation. Reviewed that constipation can lead to impaired urine output. Trial Miralax. Suspect that once sufficient BM occurs, urine output will improve and LE edema will decrease. Call back if constipation persists. Please note that pt needs post-hospitalization fu. Thanks. documented in this encounterWright-Patterson [facility]07-13-2022 NoteHNO ID: [id number] Author: Susan Cuello [facility] Service: ? Author Type: Pharmacist Type: Progress Notes Filed: 05/10/2022 1:08 PM Note Text: Primary Care Pharmacy Visit Patient consents to pharmacy consult agreement. CC (Reason for Consult):?Type 2 diabetes mellitus with diabetic polyneuropathy, with long-term current use of insulin ([facility]) - ICD9: 250.60, 357.2, V58.67, ICD10: E11.42, Z79.4 ? Goal: A1c <8% Last Collaborating Physician Visit: [facility] (Dr. Deng), 03/22/22 [facility] (HEAD REFRIGERATING ENGINEER Shea Childers), 04/13/22 Kimberly Patel is a 66 year old female presenting for follow up visit by telephone. Patient consents to pharmacy collaborative practice agreement. . HPI: patient was diagnosed with?T2DM?>10 yrs ago (pt uncertain of year).?Established with pharmacist for diabetes management on 08/05/21. Last seen by pharmacy on 04/14/22 at which time: - TIR improved to 51% though sensor was only active 33% in past 2 weeks, limiting data - Some hypoglycemia in PM post-dinner, AM readings with most elevations - Pt admitted to mostly only using her Humalog with her dinner - Decreased bolus insulin by ~15% but placed emphasis on improved adherence - Increased PM basal insulin by ~10% - Concerned pt was not always inj in SQ tissue without correct pinch-up with 8 mm needles, switched back to shorter, 5 mm pen needle size INTERIM HISTORY: - 04/30/22 - 05/07/22: Hospitalization 2/2 UTI and [facility] o Insulin changed to Lantus and reduced to 28 units BID o Humalog reduced to 12 units TID AC meals - 04/14/22: New PCP approved pharmD consult SUBJECTIVE: - Has still been feeling weak and tired since being home from the hospital - Resumed close to her normal insulin dosing since being home from the hospital af bout 3 days ago (though taking less total insulin than prior to hospital admission) - Reports will be establishing with an external Manufacturing Applications Engineer, Dr. Ramírez on 06/22/22 - Skipped her Levemir this AM as she was fearful of taking this with having a BG of 104 mg/dL - Has been taking AM Levemir ~10 am -12 pm and PM Levemir ~8-9 pm recently (was previously taking at 8 am and 8 pm) Current?DM medications:? ? linagliptin?5 mg daily ? Levemir?78?units in the AM, 85 units in the PM -- has been taking 60 units in AM, 85 units in PM ? Humalog?42?units?before breakfast,?42?units before lunch,?42?units before dinner???-- has been taking 40 units TID AC meals? ? Previously?trialed DM medications: ? Sitagliptin --?changed to linagliptin ? Metformin IR --?stopped in Jan 2021 d/t diarrhea ? Jardiance ?-- stopped d/t h/o severe UTIs resulting in sepsis ? Trulicity ?-- stopped d/t severe nausea ? ? DIET: ? Recent Diet changes:? none ? Meals:?2-3?meals/day (no set meals); daughter cooks for her at night; grazes in daytime ? Trying to follow diet set by HF clinic ? Daughter brings her the meals (not at set time each day) ? Mostly processed food in the day ? Breakfast:?5-7 strawberries, coffee ? Lunch:?sandwich (deli-sandwhich, egg salad, PBANDJ, tuna fish) ? Dinner (~6:30-7 pm):?chicken, veggies, stuffing or carbs ? Snacks:?fresh fruit (oranges, apples) - not usually at bedtime ? Beverages:?caffiene coffee (with cream; 1 cup/day), water (64 oz/day), V8 juice (once weekly), regular pepsi (1 every 2 weeks) ? Sodium Intake:?does NOT add; uses MsBrandi Dash (HF sodium-free diet); does reportedly lightly salt pakistani fries infrequently ? EXERCISE:?walks around inside of house. Has difficulty walking; can stand and pivot. Uses office chair with wheels to move around the inside of house.?Reports having displaced vertebrae pushing on nerve and degenerative disk disease limiting her ability to walk. ? SOCIAL Hx: ? Tobacco:?denies ? Alcohol:?denies ? Illicits:?denies ROS: - Patient denies CP, SOB, HEAD, blurred vision, dizziness or lightheadedness - Patient denies nausea, vomiting, diarrhea, abdominal pain - Patient denies symptoms of hypoglycemia (sweating, anxiety, palpitations, hunger, and tremor) - Patient denies symptoms of hyperglycemia (polyuria, polydipsia, polyphagia) - Patient denies potential medication adverse effects Past medical, family and social history reviewed and updated. ACTIVE PROBLEM LIST Diya (Obstructive Sleep Apnea) Chf (Congestive Heart Failure) ([facility]) Type 2 Diabetes Mellitus With Diabetic Polyneuropathy, With Long-Term Current Use of Insulin ([facility]) Coronary Arteriosclerosis in [place] Artery Bipolar Disorder ([facility]) Mixed Hyperlipidemia Class 3 Severe Obesity With Serious Comorbidity and Body Mass Index (Bmi) of 45.0 to 49.9 in Adult ([facility]) Chronic Respiratory Failure With Hypoxia ([facility]) Chronic Obstructive Pulmonary Disease ([facility]) Physical Debility Recurrent Uti (Urinary Tract Infection) Primary Hypertension Stage 3b Chron (more content not included)...[facility] 05-10-2022 History of Present illness Narrative* Susan Cuello, [facility] - 05/10/2022 11:30 AM EDT Images from the original note were not included. Primary Care Pharmacy Visit Patient consents to pharmacy consult agreement. CC (Reason for Consult): Type 2 diabetes mellitus with diabetic polyneuropathy, with long-term current use of insulin ([facility]) - ICD9: 250.60, 357.2, V58.67, ICD10: E11.42, Z79.4 Goal: A1c <8% Last Collaborating Physician Visit: [facility] (Dr. Deng), 03/22/22 [facility] (HEAD REFRIGERATING ENGINEER Shea Childers), 04/13/22 Kimberly Patel is a 66 year old female presenting for follow up visit by telephone. Patient consentsto pharmacy collaborative practice agreement. . HPI: patient was diagnosed with T2DM >10 yrs ago (pt uncertain of year). Established with pharmacist for diabetes management on 08/05/21. Last seen by pharmacy on 04/14/22 at which time: TIR improved to 51% though sensor was only active 33% in past 2 weeks, limiting data Some hypoglycemia in PM post-dinner, AM readings with most elevations Pt admitted to mostly only using her Humalog with her dinner Decreased bolus insulin by ~15% but placed emphasis on improved adherence Increased PM basal insulin by ~10% Concerned pt was not always inj in SQ tissue without correct pinch-up with 8 mm needles, switched back to shorter, 5 mm pen needle size INTERIM HISTORY: 04/30/22 - 05/07/22: Hospitalization 2/2 UTI and [facility] o Insulin changed to Lantus and reduced to 28 units BID o Humalog reduced to 12 units TID AC meals 04/14/22: New PCP approved pharmD consult SUBJECTIVE: Has still been feeling weak and tired since being home from the hospital Resumed close to her normal insulin dosing since being home from the hospital af bout 3 days ago (though taking less total insulin than prior to hospital admission) Reports will be establishing with an external Manufacturing Applications Engineer, Dr. Ramírez on 06/22/22 Skipped her Levemir this AM as she was fearful of taking this with having a BG of 104 mg/dL Has been taking AM Levemir ~10 am -12 pm and PM Levemir ~8-9 pm recently (was previously taking at 8 am and 8 pm) Current DM medications: linagliptin 5 mg daily Levemir 78 units in the AM, 85 units in the PM -- has been taking 60 units in AM, 85 units in PM Humalog 42 units before breakfast, 42 units before lunch, 42 units before dinner -- has been [id number] units TID AC meals Previously trialed DM medications: Sitagliptin -- changed to linagliptin Metformin IR -- stopped in Jan 2021 d/t diarrhea Jardiance -- stopped d/t h/o severe UTIs resulting in sepsis Trulicity -- stopped d/t severe nausea DIET: Recent Diet changes: none Meals: 2-3 meals/day (no set meals); daughter cooks for her at night; grazes in daytime ? Trying to follow diet set by HF clinic ? Daughter brings her the meals (not at set time each day) ? Mostly processed food in the day Breakfast: 5-7 strawberries, coffee Lunch: sandwich (deli-sandwhich, egg salad, PB&J, tuna fish) Dinner (~6:30-7 pm): chicken, veggies, stuffing or carbs Snacks: fresh fruit (oranges, apples) - not usually at bedtime Beverages: caffiene coffee (with cream; 1 cup/day), water (64 oz/day), V8 juice (once weekly), regular pepsi (1 every 2 weeks) Sodium Intake: does NOT add; uses MsBrandi Dash (HF sodium-free diet); does reportedly lightly salt pakistani fries infrequently EXERCISE: walks around inside of house. Has difficulty walking; can stand and pivot. Uses office chair with wheels to move around the inside of house. Reports having displaced vertebrae pushing on nerve and degenerative disk disease limiting her ability to walk. SOCIAL Hx: Tobacco: denies Alcohol: denies Illicits: denies ROS: Patient denies CP, SOB, HEAD, blurred vision, dizziness or lightheadedness Patient denies nausea, vomiting, diarrhea, abdominal pain Patient denies symptoms of hypoglycemia (sweating, anxiety, palpitations, hunger, and tremor) Patient denies symptoms of hyperglycemia (polyuria, polydipsia, polyphagia) Patient denies potential medication adverse effects Past medical, family and social history reviewed and updated. ACTIVE PROBLEM LIST Diya (Obstructive Sleep Apnea) Chf (Congestive Heart Failure) ([facility]) Type 2 Diabetes Mellitus With Diabetic Polyneuropathy, With Long-Term Current Use of Insulin ([facility]) Coronary Arteriosclerosis in [place] Artery Bipolar Disorder ([facility]) Mixed Hyperlipidemia Class 3 Severe Obesity With Serious Comorbidity and Body Mass Index (Bmi) of 45.0 to 49.9 in Adult ([facility]) Chronic Respiratory Failure With Hypoxia ([facility]) Chronic Obstructive Pulmonary Disease ([facility]) Physical Debility Recurrent Uti (Urinary Tract Infection) Primary Hypertension Stage 3b Chronic Kidney Disease ([facility]) Microalbuminuria Restrictive Lung Disease Chronic Heart Failure With Preserved Ejection Fraction (Hfpef) ([facility]) Requires Assistance With Activities of Daily Living ([facility]) Weakness of Both Legs Ddd (Degenerative Disc Disease), Lumbar Spondylolisthesis of Lumbar Region Trigger Middle Finger of Right Hand History of Covid-19 Slow Transit Constipation PAST MEDICAL HISTORY Diagnosis Date Asthma CAD (coronary artery disease) s/p stent. last one >5 years ago CHF (congestive heart failure) ([facility]) COPD (chronic obstructive pulmonary disease) ([facility]) DM2 (diabetes mellitus, type 2) ([facility]) HTN (hypertension) Mixed hyperlipidemia Pneumonia due to COVID-19 virus 10/13/2020 ALLERGIES Allergen Reactions Dilaudid [Hydromorp* Vomiting Jardiance [Empaglif* Other: See Comments UTI Metformin Diarrhea Morphine Vomiting Ondansetron Unknown Penicillins Rash Trulicity [Dulaglut* GI Upset Nausea/Vomiting MEDICATIONS/SUPPLIES: Pill bottles are not present. Adherence: reports missed doses. o Missed Levemir this AM Organization System: Integrate Pill-pack for all oral meds (Divvy-Dose) Does the patient have diabetes supplies: Yes ? CGM = [employer] Gabrielle 2; has mobile fern & reader device (via [employer]; $0 co-pay) In current transition to new CGM supply company --> [employer]... ? Glucometer = One touch ultra 2 ? Lancing Device = [facility] generic Pharmacy: [facility] [id number] [place] [address] - [address] - [phone] ? Divvy-Dose for maintenance meds ? [facility] and emergent / short term meds Rx coverage: Payor: [facility] MEDICARE / Plan: [facility] DUAL COMPLETE HMO SNP / Product Type: Medicare / Medication Affordability: No cost concerns at this time Medication List Medication Directions Comments Action/Plan albuterol (PROVENTIL) 2.5 mg /3 mL (0.083 %) nebulizer solution Use 3 mL via nebulizer every 4 hours as needed for wheezing/shortness of breath. albuterol HFA (PROVENTIL HFA, VENTOLIN HFA) 90 mcg/actuation inhaler Inhale 2 Puffs as instructed every 4 hours as needed for wheezing/shortness of breath. aspirin, enteric coated (ASPIRIN LOW DOSE) 81 mg EC tablet Take 81 mg by mouth once daily. atorvastatin (LIPITOR) 80 mg tablet Take 1 tablet by mouth every day ezetimibe (ZETIA) 10 mg tablet TAKE 1 TABLET BY MOUTH EVERY DAY flash glucose scanning reader (FREESTYLE GABRIELLE 2 READER) 1 Each. Use as directed to check blood sugars 3 times daily. Scan FreeStyle Gabrielle 2 sensors at least every 8 hours. flash glucose sensor (FREESTYLE GABRIELLE 2 SENSOR) kit 2 Each. Use as directed to check blood sugars 3times daily. Scan FreeStyle Gabrielle 2 sensors at least every 8 hours. Replace sensor every 14 days. fluticasone-vilanterol (BREO ELLIPTA) 200-25 mcg/dose inhaler Inhale 1 Inhalation as instructed once daily. furosemide (LASIX) 20 mg tablet Take 1 tablet by mouth once daily. HUMALOG KWIKPEN INSULIN 200 unit/mL (3 mL) injection INJECT 50 UNITS SUBCUTANEOUSLY BEFORE BREAKFAST, 50 UNITS SUBCUTANEOUSLY BEFORE LUNCH, 50 UNITS SUBCUTANEOUSLY BEFORE DINNER. ADMINISTER THIS WITHIN 15 MINUTES BEFORE YOUR MEALS OR IMMEDIATELY AFTER YOUR MEALS. Patient taking differently: Inject 42 units subcutaneously before breakfast, 42 units subcutaneously before lunch, 42 units subcutaneously before dinner. Administer this within 15 minutes before yourmeals or immediately after your meals. Has been taking 40 units TID AC meals since being home from the hospital See Plan HYDROcodone-Acetaminophen (NORCO) 7.5-325 mg per tablet Take 1 tablet by mouth once daily as neededfor pain. insulin detemir U-100 (LEVEMIR FLEXTOUCH U-100 INSULIN) 100 unit/mL (3 mL) injection pen Inject 78 units subcutaneously in the AM, 85 units subcutaneously in the PM Has been taking 60 units in AM, 85 units in PM since being home from hospital See Plan Insulin Conover, Disposable, (PEN NEEDLE) 31 gauge x 3/16 Use as directed to inject insulin 5 times daily as directed. insulin: yes, E11.42 isosorbide mononitrate ER (IMDUR) 30 mg 24 hr tablet Take 1 tablet by mouth once daily. lancets 33 gauge None Entered Lancets lancets Use as directed to check blood sugar 3 times daily, insulin: yes, E11.9 Lancing Device (LANCING DEVICE WITH LANCETS) misc Use as directed to check blood sugar 3 times daily, insulin: yes, E11.9 linaGLIPtin (TRADJENTA) 5 mg tab Take 1 tablet by mouth once daily. confirmed losartan (COZAAR) 50 mg tablet Take 1 tablet by mouth every day metoprolol succinate ER (TOPROL XL) 25 mg 24 hr tablet Take 1 tablet by mouth every day mupirocin (BACTROBAN) 2 % ointment as needed. nitroglycerin sublingual (NITROQUICK) 0.4 mg SL tablet Dissolve 1 tablet under the tongue as neededfor chest pain. If no pain relief call 911. omeprazole (PRILOSEC) 20 mg capsule Take 1 capsule by mouth once daily. polyethylene glycol 3350 (MIRALAX, GLYCOLAX) 17 gram packet Take 1 Packet by mouth once daily as needed (constipation). pregabalin (LYRICA) 75 mg capsule Take 1 capsule by mouth twice daily for 180 days. ranolazine SR (RANEXA) 1,000 mg tab ER 12 hr Take 1,000 mg by mouth twice daily. WALKER ROLLATOR SEAT WITH 6 WHEELS - RED Walker rollator with seat Rx meds not listed in EPIC: No OTCs: No Herbals/Supplements: No Drug-drug interactions: none identified On ZAHIRA/ARB: yes On Statin: yes GLYCEMIC CONTROL: Glucometer/CGM present at visit: Yes; [employer] Gabrielle 2 synced remotely Summary of CGM Findings: CGM recording is adequate for interpretation; glucose variability: 27.4% (goal <36%) Average glucose is 225 mg/dL Very High (>250 mg/dL) 33% High (181-250 mg/dL) 49% Time in target range (70-180 mg/dL) 18% Low (54-69 mg/dL) <1% Very low (<54 mg/dL) 0% Hypoglycemia: o 1 recent event of 64 mg/dL which she treated with cookies and it then improved o Nocturnal hypoglycemia? - No o Hypoglycemia awareness: yes (felt weak and shakey) o How corrected: OJ, pop, candy; previously reviewed rule of 15 VITALS: There were no vitals taken for this visit. Last 3 Encounter BP Readings: Date: BP: 04/10/2022 148/69 03/22/2022 122/62 09/19/2021 118/56 Wt: 127 kg (280 lb) BMI: 46.59 kg/(m^2) LABS Lab Results Component Value Date HBA1C 10.8 08/26/2021 HBA1C 10.5 11/28/2020 HBA1C 12.1 10/14/2020 HBA1C 8.3 04/12/2020 HBA1C 7.6 12/30/2019 CMP: Glucose 202 04/10/2022 BUN 28 04/10/2022 Creatinine 1.42 04/10/2022 Sodium 141 04/10/2022 Potassium 4.5 04/10/2022 Albumin 3.0 04/10/2022 Calcium 8.4 04/10/2022 AST 18 04/10/2022 ALT 16 04/10/2022 Estimated Creatinine Clearance: 53.7 mL/min (A) (based on SCr of 1.42 mg/dL (H)). eGFR-All Other Races (.) Date Value 08/26/2021 43 Estimated Glomerular Filtration Rate (mL/min/1.73m ) Date Value 04/10/2022 41 Lab Results Component Value Date CHOL 179 08/26/2021 LDL 94 08/26/2021 HDL 41 08/26/2021 TG 219 08/26/2021 Albumin/Creat Ratio (mg/g) Date Value 08/26/2021 Not calculated The 10-year ASCVD risk score (Diana DC Jr., et al., 2013) is: 17.7% Values used to calculate the score: Age: 66 years Sex: Female Is Non- : No Diabetic: Yes Tobacco smoker: No Systolic Blood Pressure: 148 mmHg Is BP treated: Yes HDL Cholesterol: 41 mg/dL Total Cholesterol: 179 mg/dL PHARMACOTHERAPY ASSESSMENT/PLAN 1.) Type 2 diabetes mellitus with diabetic polyneuropathy, with long-term current use of insulin ([facility]) - ICD9: 250.60, 357.2, V58.67, ICD10: E11.42, Z79.4 A1c is above goal of <8%. Due for recheck. CGM reveals BGs with recent worsening and 1 hypoglycemia event that was treated and resolved appropriately. Appears patient was receiving insulin at muchlower dosing in-patient with elevated BGs at that time. She then resumed insulin at slightly lower dosing than prescribed pre-hospital admission ~3 days ago since returning home. She also resumed kasey gliptin at that time which was not given during her hospital stay. Given BGs closer to target rangesince returning home from the hospital, will continue decreased insulin doses pt has been taking since being home as well as decrease PM Levemir by ~10%. Reviewed importance of med adherence and whenshe should/should not skip her insulins. Renal fxn appropriate for continued therapy. Plan: DECREASE Levemir to 60 units in the AM, 77 units in the PM Okay to continue decreased dose of Humalog as 40 units TID AC meals Continue linagliptin 5 mg daily Instructed patient to continue to check BGs 3 times daily and scan FreeStyle Gabrielle 2 sensor at least every 8 hours. Again reminded to check BG via fingerprick when not wearing sensor or as indicated Discussed appropriate treatment of hypoglycemia with rule of 15. Pt to call office if > 1 hypoglycemic episode Recommended positive lifestyle modifications including portion control, low-carb diet, and as much physical activity as able Again reminded pt to complete previously ordered A1c recheck Foot exam: due NOW Eye exam: due NOW FOLLOW UP PharmD follow up: 05/23/22 PCP follow up: 05/24/22 Patient verbalized understanding of instructions. The majority of the pharmacy visit (> 50%) was spent counseling and/or coordinating care for thepatient. [Telephonic] time was 30 minutes. Thank you, Susan Cuello PharmD documented in this encounterW[facility]07-10-[facility]22 NoteDischarge Summary Kimberly Patel : 1955 ADMIT DATE: 04/30/2022 DISCHARGE DATE: 05/07/2022 PRIMARY CARE PHYSICIAN: FRANKIE DENG MD VISIT STATUS: Admission CODE STATUS: Full Code DISCHARGE DIAGNOSES: Active Problems: Urinary tract infection Resolved Problems: * No resolved hospital problems. * Simple Sepsis 2/2 UTI UTI, E coli DARRELL only Chronic respiratory failure CAD on DAPT CKD3b COPD Type 2 DM HFpEF HTN Untreated DIYA Recent E.coli bacteremia Morbid obesity HOSPITAL COURSE: Pt admitted for above, completed course of antibiotics, sym resolved, ptot recommended snf, pt refused, stable and being discharged home. Patient is alert, awake, oriented x 3 No pallor, Icterus No JVD Heart S1 S2 No murmurs Lungs clear to auscultation Abdomen soft non distended no organomegaly No pedal edema, no cyanosis No focal neurological deficits CONSULTANTS: nephrology DISCHARGE MEDICATIONS: Medication List CONTINUE taking these medications atorvastatin 80 MG tablet Commonly known as: LIPITOR clopidogrel 75 MG tablet Commonly known as: PLAVIX ezetimibe 10 MG tablet Commonly known as: ZETIA fluticasone-salmeterol 500-50 MCG/DOSE diskus inhaler Commonly known as: ADVAIR furosemide 20 MG tablet Commonly known as: LASIX Take 1 tablet by mouth daily insulin glargine 100 UNIT/ML injection vial Commonly known as: LANTUS Inject 28 Units into the skin 2 times daily insulin lispro 100 UNIT/ML injection vial Commonly known as: HUMALOG Inject 12 Units into the skin 3 times daily (with meals) isosorbide mononitrate 30 MG extended release tablet Commonly known as: IMDUR metoprolol succinate 25 MG extended release tablet Commonly known as: TOPROL XL omeprazole 20 MG delayed release capsule Commonly known as: PRILOSEC pregabalin 75 MG capsule Commonly known as: LYRICA Take 1 capsule by mouth 2 times daily for 30 days. ranolazine 500 MG extended release tablet Commonly known as: RANEXA simethicone 80 MG chewable tablet Commonly known as: MYLICON Take 1 tablet by mouth every 6 hours as needed for Flatulence Where to Get Your Medications These medications were sent to [facility] [id number] [facility] - [place], [place] - [address] - P [phone] - F [phone] [place] [address] insulin glargine 100 UNIT/ML injection vial insulin lispro 100 UNIT/ML injection vial DIET: ADULT DIET; Regular; 5 carb choices (75 gm/meal) ACTIVITY: No restriction. up with assist SIGNIFICANT DIAGNOSTIC STUDIES: COMPLEXITY OF FOLLOW UP: [] Moderate Complexity: follow up within 7-14 calendar days (38857) [] Severe Complexity: follow up within 7 calendar days (39338) FOLLOW UP TESTING, PENDING RESULTS OR REFERRALS AT TRANSITIONAL CARE VISIT: [] Yes [] No PENDING STUDIES: @LABRRPENDINGTESTS@ RECOMMENDED NEXT STEPS: Follow up with nephrology as scheduled DISPOSITION: Home FACILITY/HOME CARE AGENCY NAME: Follow up with FRANKIE DENG MD in 1 week INSTRUCTIONS TO MA/SW: Please call patient on day after discharge (must document patient contacted within 2 business days of discharge). FOLLOW UP QUESTIONS FOR MA/SW: 1. Did you get medications filled and taking them as instructed from discharge? 2. Are you following your discharge instructions from your hospital stay? 3. Please confirm patient is scheduled for a follow up appointment within the above time frame. DISCHARGE TIME: > 30 minutes SIGNED: Carli Benites MD 05/07/2022, 3:18 [facility]07-10-2022 History of Present illness Narrative* Marsha Shahid - 05/07/2022 7:20 AM EDT Nutrition update completed. Chart reviewed. Refer patient to the Dietitian for CKD. * Susan Garcia RN - 05/06/2022 6:28 PM EDT Pt wants to dc tomorrow after PT OT . Will check with IMS * Susan Garcia RN - 05/06/2022 4:26 PM EDT Contacted Mika with [facility] regarding pt needs an oxygen patterson. Daughter misplaced hers * Carli Benites MD - 05/06/2022 2:14 PM EDT Images from the original note were not included. Hospitalist Progress Note 05/06/2022 2:14 PM [phone]: Please page me ([phone]) for patient care issues. [phone]: Please page [facility] night Hospitalist for any issues. Subjective: Admit Date: 04/30/2022 PCP: FRANKIE DENG MD Room#: [id number] Interval History: Overnight events reviewed, pt wants to get ptot today before going home. also is refusing senior care home denies chest pain, sob, abdominal pain, nausea, vomiting, diarrhea, constipation, fevers, or chills. ADULT DIET; Regular; 5 carb choices (75 gm/meal) Patient Vitals for the past 96 hrs (Last 3 readings): Weight 05/03/22 0425 293 lb 3.2 oz (133 kg) 24HR INTAKE/OUTPUT: Intake/Output Summary (Last 24 hours) at 05/06/2022 1414 Last data filed at 05/06/2022 1024 Gross per 24 hour Intake Output 1175 ml Net -1175 ml Past Medical History: Diagnosis Date CHF (congestive heart failure) ([facility]) COPD (chronic obstructive pulmonary disease) ([facility]) Diabetes mellitus ([facility]) LABS: CBC: Recent Labs 05/04/22 02005/05/22 0552 05/06/22 0113 WBC 6.1 7.9 9.2 RBC 3.06* 3.32* 3.14* HGB 9.2* 9.8* 9.4* HCT 27.5* 29.7* 28.0* MCV 89.8 89.2 89.1 RDW 13.6 13.4 13.5 PLT 90* 135* 171 BMP: Recent Labs 05/04/2220805/05/22 0552 05/06/22 0113 NA 137 139 137 K 4.7 4.6 4.3 CL 104 104 102 CO2 28 31* 32* BUN 30* 26* 27* CREATININE 1.20 1.30* 1.48* GLUCOSE 268* 245* 242* CALCIUM 8.4 8.7 8.8 ANIONGAP 5 4 3 LIVER PROFILE: Recent Labs 05/04/2220805/05/22 0552 05/06/22 0113 AST 14* 16 18 ALT 11 13 14 BILITOT 0.3 0.4 0.4 ALKPHOS 71 77 82 LABALBU 3.1* 3.5 3.4* PROT 5.8* 6.3 6.1* PT/INR: No results for input(s): PROTIME, INR in the last 72 hours. CARDIAC ENZYMES: No results for input(s): TROPONINI in the last 72 hours. Procalcitonin: Lab Results Component Value Date/Time PROCAL 6.49 05/04/2022 02:09 AM COVID-19 PCR: No results for input(s): COVID19 in the last 72 hours. Objective: Vitals: BP 139/67 Pulse 71 Temp (!) 96.3 F (35.7 C) (Temporal) Resp 16 Ht 5' 5 (1.651 m) Wt 293 lb 3.2 oz (133 kg) SpO2 98% BMI 48.79 kg/m Pulse Ox: SpO2 Av % Min: 98 % Max: 100 % Supplemental O2: O2 Flow Rate (L/min): 3 L/min General appearance: No apparent distress, appears stated age and cooperative with exam HEENT: Normal cephalic, atraumatic without obvious deformity. Pupils equal, round, and reactive to light. Extra ocular muscles intact. Conjunctivae/corneas clear. Neck: Supple, with full range of motion. No jugular venous distention. Trachea midline. No lymphadenopathy. Respiratory: Normal respiratory effort. Clear to auscultation, bilaterally without Rales/Wheezes/Rhonchi. Cardiovascular: Regular rate and rhythm with normal S1/S2 without murmurs, rubs or gallops. Abdomen: Soft, non-tender, non-distended with normal bowel sounds. No rebound or guarding. Musculoskeletal: No clubbing, cyanosis or edema bilaterally. Full range of motion without deformity. Skin: Skin color, texture, turgor normal. No rashes or lesions. Neurologic: Neurovascularly intact without any focal sensory/motor deficits. Cranial nerves: II-XIIintact, grossly non-focal. Medications: sodium chloride dextrose sodium chloride flush 5-40 mL IntraVENous 2 times per day atorvastatin 80 mg Oral Nightly clopidogrel 75 mg Oral Daily ezetimibe 10 mg Oral Daily mometasone-formoterol 2 puff Inhalation BID furosemide 20 mg Oral Daily insulin glargine 28 Units SubCUTAneous BID insulin lispro 12 Units SubCUTAneous TID WC insulin lispro 0-12 Units SubCUTAneous TID WC insulin lispro 0-6 Units SubCUTAneous Nightly isosorbide mononitrate 30 mg Oral Daily metoprolol succinate 25 mg Oral Daily pantoprazole 40 mg Oral QAM AC pregabalin 75 mg Oral BID ranolazine 1,000 mg Oral BID heparin (porcine) 5,000 Units SubCUTAneous 3 times per day Assessment 1. Sepsis 2/2 UTI-resolved with ceftriaxone 2. UTI, E coli -on ceftriaxone, finished antibiotic course 3. DARRELL-nephrology seen the patient serum creatinine is back to the baseline of 1.2, restarted Lasix 4. Chronic respiratory failure - on 3 L 5. CAD on DAPT 6. CKD3b 7. COPD 8. Type 2 DM-check BGTs before every meal at bedtime 9. HFpEF - EF 63% (09/2021) 10. HTN 11. Untreated DIYA 12. Recent E.coli bacteremia 13. Morbid obesity - BMI 46.59 Plan Stop ceftriaxone today -Okay to discharge per nephrology Discharge planning home today after ptot, refusing snf placement -am labs, replace lytes prn -increase activity -PT/OT pending -DVT prophylaxis: [] Lovenox [] Heparin [] SCDs [x] Encourage ambulation [] Already on Anticoagulation Advance Directive: Full Code Discharge planning: TBD Carli Benites MD Division of Hospitalist Medicine Inpatient Medical Services PAGER: [phone] * Irais Ramírez MD - 05/06/2022 9:00 AM EDT [facility] Subjective/ 66 y.o. year old female who we are seeing in consultation for DARRELL. Nausea better BP is fluctuating Edema is trace No issues with UOP SOB resolved Appetite improving slowly No chest pain Responding to current rx No other new issues at this time ROS done and negative unless mentioned as above No change in PFSH All data labs/interval notes and overnight issues are reviewed Objective/ Vitals: 05/06/22 0038 05/06/22 0321 05/06/22 0713 05/06/22 0815 BP: (!) 142/65 (!) 159/76 109/68 Pulse: 77 85 73 75 Resp: 18 19 16 16 Temp: 96.9 F (36.1 C) (!) 96.7 F (35.9 C) (!) 96.4 F (35.8 C) TempSrc: Temporal Temporal Temporal SpO2: 99% 99% 98% 100% Weight: Height: 24HR INTAKE/OUTPUT: No intake or output data in the 24 hours ending 05/06/22 0901 Constitutional: Fatigued, no apparent distress Eyes: No icterus, no pallor HEENT: no pallor/cyanosis or icterus Cardiovascular: S1, S2 without m/r/g Respiratory: CTA B without w/r/r, diminished throughout GI: +bs, soft, nt : martinez absent Ext: trace BLE edema Neck: supple, no thyroid enlargement, no JVD elevation Skin: warm, moist, no rashes Data/ Recent Labs 05/04/22 0209 05/05/22 0552 05/06/22 0113 WBC 6.1 7.9 9.2 HGB 9.2* 9.8* 9.4* HCT 27.5* 29.7* 28.0* MCV 89.8 89.2 89.1 PLT 90* 135* 171 Recent Labs 05/04/22 0209 05/05/22 0552 05/06/22 0113 NA 137 139 137 K 4.7 4.6 4.3 CL 104 104 102 CO2 28 31* 32* GLUCOSE 268* 245* 242* BUN 30* 26* 27* CREATININE 1.20 1.30* 1.48* Assessment/Plan DARRELL/ATN likely 2/2 UTI/urosepsis + perfusion injury from relative hypotension + potential involvement of vancomycin Scr still is uptrending , ATN stabalizing ?? non-oliguric, BP stable , expect to peak and then slowly return to baseline if no further ischemic or nephrotoxic insults Avoid nephrotoxins and contrast dye Dose all meds per current eGFR 2. UTI, source unclear -Failed outpatient therapy on Keflex -UA micro noted + UTI with + nitrites, WBCs, and bacteria -Now on ceftriaxone -Recommend outpatient follow up with urology for recurrent UTIs with hospitalizations 3. CKD3b -Baseline ~1.2 and close to baseline -ROCAEL negative for acute process, sizes appropriate -Tight control of risk factors to slow CKD progression 4. Lactic acidosis -Resolved 5. HTN w/ CKD3b -Permissive HTN for adequate renal perfusion at this time 6. Anemia w/ CKD3b -Agree with prn transfusions for hgb <7 -Hgb goal for CKD is >10 -No further changes -Ok for discharge planning from renal standpoint -We will follow closely with you * Ann Reed MD - 05/05/2022 4:48 PM EDT Images from the original note were not included. Hospitalist Progress Note 05/05/2022 4:48 PM [phone]: Please page me ([phone]) for patient care issues. [phone]: Please page [facility] night Hospitalist for any issues. Subjective: Admit Date: 04/30/2022 PCP: FRANKIE DENG MD Room#: [id number] Interval History: Overnight events reviewed, refused therapy today, she claims that she is not ready for discharge today, also is refusing senior care home denies chest pain, sob, abdominal pain, nausea, vomiting, diarrhea, constipation, fevers, or chills. ADULT DIET; Regular; 5 carb choices (75 gm/meal) Patient Vitals for the past 96 hrs (Last 3 readings): Weight 05/03/22 0425 293 lb 3.2 oz (133 kg) 24HR INTAKE/OUTPUT: Intake/Output Summary (Last 24 hours) at 05/05/2022 1648 Last data filed at 05/05/2022 0542 Gross per 24 hour Intake Output 1425 ml Net -1425 ml Past Medical History: Diagnosis Date CHF (congestive heart failure) (HCC) COPD (chronic obstructive pulmonary disease) (HCC) Diabetes mellitus (HCC) LABS: CBC: Recent Labs 05/03/22 01405/04/2220805/05/22 0552 WBC 6.3 6.1 7.9 RBC 2.86* 3.06* 3.32* HGB 8.5* 9.2* 9.8* HCT 25.6* 27.5* 29.7* MCV 89.5 89.8 89.2 RDW 13.8 13.6 13.4 PLT 80* 90* 135* BMP: Recent Labs 05/03/22 01405/04/22 02005/05/22 0552 NA 136 137 139 K 4.5 4.7 4.6 CL 103 104 104 CO2 30 28 31* BUN 33* 30* 26* CREATININE 1.51* 1.20 1.30* GLUCOSE 255* 268* 245* CALCIUM 8.1* 8.4 8.7 ANIONGAP 3 5 4 LIVER PROFILE: Recent Labs 05/03/22 01405/04/22 02005/05/22 0552 AST 15 14* 16 ALT 12 11 13 BILITOT 0.3 0.3 0.4 ALKPHOS 78 71 77 LABALBU 3.2* 3.1* 3.5 PROT 5.7* 5.8* 6.3 PT/INR: No results for input(s): PROTIME, INR in the last 72 hours. CARDIAC ENZYMES: No results for input(s): TROPONINI in the last 72 hours. Procalcitonin: Lab Results Component Value Date/Time PROCAL 6.49 05/04/2022 02:09 AM COVID-19 PCR: No results for input(s): COVID19 in the last 72 hours. Objective: Vitals: BP (!) 146/89 Pulse 77 Temp 97.3 F (36.3 C) (Temporal) Resp 16 Ht 5' 5 (1.651 m) Wt 293 lb 3.2 oz (133 kg) SpO2 100% BMI 48.79 kg/m Pulse Ox: SpO2 Av.5 % Min: 97 % Max: 100 % Supplemental O2: O2 Flow Rate (L/min): 3 L/min General appearance: No apparent distress, appears stated age and cooperative with exam HEENT: Normal cephalic, atraumatic without obvious deformity. Pupils equal, round, and reactive to light. Extra ocular muscles intact. Conjunctivae/corneas clear. Neck: Supple, with full range of motion. No jugular venous distention. Trachea midline. No lymphadenopathy. Respiratory: Normal respiratory effort. Clear to auscultation, bilaterally without Rales/Wheezes/Rhonchi. Cardiovascular: Regular rate and rhythm with normal S1/S2 without murmurs, rubs or gallops. Abdomen: Soft, non-tender, non-distended with normal bowel sounds. No rebound or guarding. Musculoskeletal: No clubbing, cyanosis or edema bilaterally. Full range of motion without deformity. Skin: Skin color, texture, turgor normal. No rashes or lesions. Neurologic: Neurovascularly intact without any focal sensory/motor deficits. Cranial nerves: II-XIIintact, grossly non-focal. Medications: sodium chloride dextrose sodium chloride flush 5-40 mL IntraVENous 2 times per day atorvastatin 80 mg Oral Nightly clopidogrel 75 mg Oral Daily ezetimibe 10 mg Oral Daily mometasone-formoterol 2 puff Inhalation BID furosemide 20 mg Oral Daily insulin glargine 28 Units SubCUTAneous BID insulin lispro 12 Units SubCUTAneous TID insulin lispro 0-12 Units SubCUTAneous TID WC insulin lispro 0-6 Units SubCUTAneous Nightly isosorbide mononitrate 30 mg Oral Daily metoprolol succinate 25 mg Oral Daily pantoprazole 40 mg Oral QAM AC pregabalin 75 mg Oral BID ranolazine 1,000 mg Oral BID heparin (porcine) 5,000 Units SubCUTAneous 3 times per day Assessment 1. Sepsis 2/2 UTI-resolved with ceftriaxone 2. UTI, E coli -on ceftriaxone, finished antibiotic course 3. DARRELL-nephrology seen the patient serum creatinine is back to the baseline of 1.2, restarted Lasix 4. Chronic respiratory failure - on 3 L 5. CAD on DAPT 6. CKD3b 7. COPD 8. Type 2 DM-check BGTs before every meal at bedtime 9. HFpEF - EF 63% (09/2021) 10. HTN 11. Untreated DIYA 12. Recent E.coli bacteremia 13. Morbid obesity - BMI 46.59 Plan Stop ceftriaxone today -Okay to discharge per nephrology Discharge planning tomorrow she would like to go home but has refused physical therapy here -am labs, replace lytes prn -increase activity -PT/OT pending BC negative to date, UC abx de-escalated. Patient refusing SNF, would prefer home with [facility]. Possible discharge tomorrow after PT evaluation -am labs, replace lytes prn -increase activity -DVT prophylaxis: [] Lovenox [] Heparin [] SCDs [x] Encourage ambulation [] Already on Anticoagulation Advance Directive: Full Code Discharge planning: TBD Ann Reed MD Division of Hospitalist Medicine Inpatient Medical Services PAGER: [phone] * Moe Burns, PT - 05/05/2022 3:44 PM EDT Physical Therapy Facility/Department: [facility] Physical Therapy Daily Treatment Note Name: Kimberly Patel : 1955 Date of Service: 05/05/2022 Discharge Recommendations: Subacute/Group Home Facility Patient Diagnosis(es): The encounter diagnosis was Urinary tract infection with hematuria, site unspecified. Past Medical History: has a past medical history of CHF (congestive heart failure) (HCC), COPD (chronic obstructive pulmonary disease) (HCC), and Diabetes mellitus (HCC). Past Surgical History: has a past surgical history that includes Cholecystectomy and Endoscopy, colon, diagnostic. Assessment Assessment: Pt present with slight increased functional mobility this date, demo bed mobility min a, functional transfer to FWW with min A and limited ambulation min A with FWW. Pt somewhat self limiting, declines attempt at transfer to BSC and requests 2 therapists to complete all transfers. Had ex tended discussion with pt, OT and PT about SNF vs HHC and pt continue to decline SNF, she is at increased falls risk and will benefit from skilled therapy, SNF rec remains appropriate Requires PT Follow-Up: Yes Activity Tolerance Activity Tolerance: Patient limited by fatigue;Patient limited by endurance Plan Plan Plan: (7 visits) Current Treatment Recommendations: Strengthening,Balance training,Functional mobility training,Transfer training,Stair training,Gait training,Endurance training,Pain management,Equipment evaluation, education, & procurement,Therapeutic activities,Home exercise program,Positioning,Safety education & training,Patient/Caregiver education & training Plan Comment: goals and treatment plan established in collaboration with pt Safety Devices Type of Devices: Gait belt,Nurse notified,All fall risk precautions in place,Patient at risk for falls,Call light within reach,Left in bed (with OT to continue tx) Restraints Restraints Initially in Place: No Restrictions Restrictions/Precautions Restrictions/Precautions: Fall Risk,General Precautions Required Braces or Orthoses?: No Subjective Pain: 3/10 pain lumbar region. General Chart Reviewed: Yes Patient assessed for rehabilitation services?: Yes Response To Previous Treatment: Patient with no complaints from previous session. Family / Caregiver Present: No Follows Commands: Within Functional Limits General Comment Comments: Per RN pt okay for therapy Subjective Subjective: Pt pleasant and agreeable to PT Objective Bed mobility Supine to Sit: Minimal assistance Sit to Supine: Minimal assistance Scooting: Contact guard assistance Bed Mobility Comments: denied dizziness. pt able to complete supine<>sit with Michelle to elevatetrunk and for BLE management during sit>sup. CGA when scooting EOB this date. Transfers Sit to Stand: Minimal Assistance Stand to sit: Minimal Assistance Comment: Pt complete 3 trials sit to stand from bed with min A. Therapist cues pt for hand and footplacement, cues for upright trunk posture. once standing pt able to maintain 1-2 min per trial withmin A and FWW. Pt request 2 person assist to stand Ambulation Surface: level tile Device: Rolling Walker Assistance: Minimal assistance Quality of Gait: Pt takes lateral steps EOB with FWW and min A. She demo short steps with no LOB, limited by rapid fatigue. Pt wanting to get to [facility] but somewhat self limiting, fearful and declines this date. Gait Deviations: Slow Wen;Decreased step length;Decreased step height Distance: ~5 ft lateral x3 Comments: Therapist cues pt for reciprocal and equal step pattern, cues for walker management and upright trunk posture. Therapist cues pt for energy conservation and safety throughout, anticipate ptable to tolerate increased distance but pt reports too much fatigue to attempt Stairs/Curb Stairs?: No Balance Posture: Fair Sitting - Static: Good Sitting - Dynamic: Good;- Standing - Static: Fair Standing - Dynamic: Fair;- AM-PAC Score AM-PAC Inpatient Mobility Raw Score : 11 (05/05/22 1503) AM-PAC Inpatient T-Scale Score : 33.86 (05/05/22 1503) Mobility Inpatient CMS 0-100% Score: 72.57 (05/05/22 1503) Mobility Inpatient CMS G-Code Modifier : CL (05/05/22 1503) Goals Short Term Goals Time Frame for Short term goals: 8 visits Short term goal 1: Pt will complete bed mobility SBA to promote mobility (not met) Short term goal 2: Pt will complete functional transfer to FWW with SBA to promote safety (previousgoal met PT updated 05/05) Short term goal 3: Pt will transfer bed>chair with FWW and min A to promote mobility (progressing) Short term goal 4: Pt will complete 1-2 sets 5-10 reps LE exercise to promote strength (na) Short term goal 5: pt will ascend/descend 1 step with FWW and Sup to safely enter/exit home (PT added 05/05) Patient Goals Patient goals : Pt wants to go home Education Patient Education Education Given To: Patient Education Provided: Role of Therapy;Transfer Training;Plan of Care;Energy Conservation;Equipment;Fall Prevention Strategies;Precautions Education Provided Comments: d/c rec Education Method: Demonstration;Verbal Barriers to Learning: None Education Outcome: Verbalized understanding;Continued education needed Therapy Time Individual Concurrent Group Co-treatment Time In 1327 (co-tx with HODGES due to assist on eval and pt requesting 2 therapists to stand) Time Out 1347 Minutes 20 Timed Code Treatment Minutes: 10 Minutes (ther act x1) Moe Burns PT * Radha Costa MD - 05/05/2022 1:23 PM EDT [facility] Progress Note Subjective/ 66 y.o. year old female who we are seeing in consultation for DARRELL. Feels tired still but better than yesterday Nausea better BP is fluctuating Edema is trace No issues with UOP SOB resolved Appetite improving slowly No chest pain Responding to current rx No other new issues at this time ROS done and negative unless mentioned as above No change in PFSH All data labs/interval notes and overnight issues are reviewed Objective/ Vitals: 05/04/22 2247 05/05/22 0344 05/05/22 0542 05/05/22 0726 BP: 121/69 (!) 171/80 (!) 161/80 (!) 147/74 Pulse: 82 83 78 75 Resp: 18 19 18 Temp: 97.2 F (36.2 C) 97.5 F (36.4 C) 98 F (36.7 C) TempSrc: Temporal Temporal Temporal Temporal SpO2: 99% 98% 100% Weight: Height: 24HR INTAKE/OUTPUT: Intake/Output Summary (Last 24 hours) at 05/05/2022 1323 Last data filed at 05/05/2022 0542 Gross per 24 hour Intake Output 1425 ml Net -1425 ml Constitutional: Fatigued, no apparent distress Eyes: No icterus, no pallor HEENT: no pallor/cyanosis or icterus Cardiovascular: S1, S2 without m/r/g Respiratory: CTA B without w/r/r, diminished throughout GI: +bs, soft, nt : martinez absent Ext: trace BLE edema Neck: supple, no thyroid enlargement, no JVD elevation Skin: warm, moist, no rashes Data/ Recent Labs 05/03/22 0144 05/04/22 0209 05/05/22 0552 WBC 6.3 6.1 7.9 HGB 8.5* 9.2* 9.8* HCT 25.6* 27.5* 29.7* MCV 89.5 89.8 89.2 PLT 80* 90* 135* Recent Labs 05/03/22 0144 05/04/22 0209 05/05/22 0552 NA 136 137 139 K 4.5 4.7 4.6 CL 103 104 104 CO2 30 28 31* GLUCOSE 255* 268* 245* BUN 33* 30* 26* CREATININE 1.51* 1.20 1.30* Assessment/Plan 1. DARRELL/ATN likely 2/2 UTI/urosepsis + perfusion injury from relative hypotension + potential involvement of vancomycin Scr stable, non-oliguric, BP stable Avoid further IVF as she cannot tolerate it well Need to allow for some rise in scr in setting of diuresis to prevent CHF Bladder scan negative Permissive HTN for adequate renal perfusion to promote renal recovery Avoid nephrotoxins and contrast dye Dose all meds per current eGFR 2. UTI, source unclear -Failed outpatient therapy on Keflex -UA micro noted + UTI with + nitrites, WBCs, and bacteria -Now on ceftriaxone -Recommend outpatient follow up with urology for recurrent UTIs with hospitalizations 3. CKD3b -Baseline ~1.2 -ROCAEL negative for acute process, sizes appropriate -Tight control of risk factors to slow CKD progression 4. Lactic acidosis -Resolved 5. HTN w/ CKD3b -Permissive HTN for adequate renal perfusion at this time 6. Anemia w/ CKD3b -Agree with prn transfusions for hgb <7 -Hgb goal for CKD is >10 7. Nausea -Resolved -No further changes -Ok for discharge planning from renal standpoint -We will follow closely with you Thank you for the consult and the opportunity to participate in the care of this patient. Please donot hesitate to contact us with any questions or concerns. Hema Carl, HAM DOCTOR, TOUR ACTOR [facility] Schedulicity [phone] I have reviewed the above assessment and plan with the HEAD REFRIGERATING ENGINEER. I agree with above note. * Ann Tripp RN - 05/04/2022 3:30 PM EDT Patient's assessment remains unchanged. She is sitting up comfortably in bed with no new issues or concerns. Will continue to monitor. * SÁNCHEZ Kate - 05/04/2022 3:13 PM EDT Occupational Therapy Facility/Department: [facility] Occupational Therapy Daily Treatment Note Name: Kimberly Patel : 1955 Date of Service: 05/04/2022 Subjective General Chart Reviewed: Yes Subjective Subjective: I do (want therapy) but not right now. I have to get my IV worked on. It's leaking General Comment Comments: Pt wants to work on BSC transfers as she is planning on going home tomorrow and will be doing that herself. I want to practice before I get home. SÁNCHEZ Kate * Ann Reed MD - 05/04/2022 2:01 PM EDT Images from the original note were not included. Hospitalist Progress Note 05/04/2022 2:02 PM [phone]: Please page me ([phone]) for patient care issues. [phone]: Please page [facility] night Hospitalist for any issues. Subjective: Admit Date: 04/30/2022 PCP: FRANKIE DENG MD Room#: 453/[id number] Interval History: Overnight events reviewed, refused therapy today, asking about suppressive antibiotic therapy for UTIs denies chest pain, sob, abdominal pain, nausea, vomiting, diarrhea, constipation, fevers, or chills. ADULT DIET; Regular; 5 carb choices (75 gm/meal) Patient Vitals for the past 96 hrs (Last 3 readings): Weight 05/03/22 0425 293 lb 3.2 oz (133 kg) 04/30/22 1632 280 lb (127 kg) 24HR INTAKE/OUTPUT: Intake/Output Summary (Last 24 hours) at 05/04/2022 1402 Last data filed at 05/04/2022 0256 Gross per 24 hour Intake Output 1000 ml Net -1000 ml Past Medical History: Diagnosis Date CHF (congestive heart failure) (HCC) COPD (chronic obstructive pulmonary disease) (HCC) Diabetes mellitus (HCC) LABS: CBC: Recent Labs 05/02/22 0502 05/03/22 0144 05/04/22 0209 WBC 7.5 6.3 6.1 RBC 2.97* 2.86* 3.06* HGB 8.9* 8.5* 9.2* HCT 26.8* 25.6* 27.5* MCV 90.0 89.5 89.8 RDW 13.9 13.8 13.6 PLT 71* 80* 90* BMP: Recent Labs 05/02/22 0502 05/03/22 0144 05/04/22 0209 NA 138 136 137 K 4.3 4.5 4.7 CL 104 103 104 CO2 30 30 28 BUN 43* 33* 30* CREATININE 1.39* 1.51* 1.20 GLUCOSE 233* 255* 268* CALCIUM 7.9* 8.1* 8.4 ANIONGAP 4 3 5 LIVER PROFILE: Recent Labs 05/02/22 0502 05/03/2214305/04/22 0209 AST 16 15 14* ALT 11 12 11 BILITOT 0.4 0.3 0.3 ALKPHOS 70 78 71 LABALBU 3.2* 3.2* 3.1* PROT 5.8* 5.7* 5.8* PT/INR: No results for input(s): PROTIME, INR in the last 72 hours. CARDIAC ENZYMES: No results for input(s): TROPONINI in the last 72 hours. Procalcitonin: Lab Results Component Value Date/Time PROCAL 6.49 05/04/2022 02:09 AM COVID-19 PCR: No results for input(s): COVID19 in the last 72 hours. Objective: Vitals: BP (!) 153/68 Pulse 69 Temp 96.9 F (36.1 C) (Temporal) Resp 16 Ht 5' 5 (1.651 m) Wt 293 lb 3.2 oz (133 kg) SpO2 100% BMI 48.79 kg/m Pulse Ox: SpO2 Av.4 % Min: 94 % Max: 100 % Supplemental O2: O2 Flow Rate (L/min): 3 L/min General appearance: No apparent distress, appears stated age and cooperative with exam HEENT: Normal cephalic, atraumatic without obvious deformity. Pupils equal, round, and reactive to light. Extra ocular muscles intact. Conjunctivae/corneas clear. Neck: Supple, with full range of motion. No jugular venous distention. Trachea midline. No lymphadenopathy. Respiratory: Normal respiratory effort. Clear to auscultation, bilaterally without Rales/Wheezes/Rhonchi. Cardiovascular: Regular rate and rhythm with normal S1/S2 without murmurs, rubs or gallops. Abdomen: Soft, non-tender, non-distended with normal bowel sounds. No rebound or guarding. Musculoskeletal: No clubbing, cyanosis or edema bilaterally. Full range of motion without deformity. Skin: Skin color, texture, turgor normal. No rashes or lesions. Neurologic: Neurovascularly intact without any focal sensory/motor deficits. Cranial nerves: II-XIIintact, grossly non-focal. Medications: sodium chloride dextrose cefTRIAXone (ROCEPHIN) IV 1,000 mg IntraVENous Q24H sodium chloride flush 5-40 mL IntraVENous 2 times per day atorvastatin 80 mg Oral Nightly clopidogrel 75 mg Oral Daily ezetimibe 10 mg Oral Daily mometasone-formoterol 2 puff Inhalation BID furosemide 20 mg Oral Daily insulin glargine 28 Units SubCUTAneous BID insulin lispro 12 Units SubCUTAneous TID WC insulin lispro 0-12 Units SubCUTAneous TID WC insulin lispro 0-6 Units SubCUTAneous Nightly isosorbide mononitrate 30 mg Oral Daily metoprolol succinate 25 mg Oral Daily pantoprazole 40 mg Oral QAM AC pregabalin 75 mg Oral BID ranolazine 1,000 mg Oral BID heparin (porcine) 5,000 Units SubCUTAneous 3 times per day Assessment 1. Sepsis 2/2 UTI- SIRS (3/4) -tachycardia, fever, leukocytosis, borderline hypotension 2. UTI, E coli -on ceftriaxone 3. DARRELL-nephrology seen the patient serum creatinine is back to the baseline of 1.2, restarted Lasix 4. Chronic respiratory failure - on 3 L 5. CAD on DAPT 6. CKD3b 7. COPD 8. Type 2 DM-check BGTs before every meal at bedtime 9. HFpEF - EF 63% (09/2021) 10. HTN 11. Untreated DIYA 12. Recent E.coli bacteremia 13. Morbid obesity - BMI 46.59 Plan Sepsis protocol,, BC negative to date -UC growing out adsilva sensitive Ecoli, de-escalate to Rocephin -nephrology for DARRELL -off IVF and started on lasix per nephrology Discharge planning tomorrow she would like to go home but has refused physical therapy here -am labs, replace lytes prn -increase activity -PT/OT pending BC negative to date, UC abx de-escalated. Patient refusing SNF, would prefer home with [facility]. Possible discharge in 48-72 hrs. -am labs, replace lytes prn -increase activity -DVT prophylaxis: [] Lovenox [] Heparin [] SCDs [x] Encourage ambulation [] Already on Anticoagulation Advance Directive: Full Code Discharge planning: TBD Ann Reed MD Division of Hospitalist Medicine Inpatient Medical Services PAGER: [phone] * Radha Costa MD - 05/04/2022 1:19 PM EDT [facility] Progress Note Subjective/ 66 y.o. year old female who we are seeing in consultation for DARRELL. Feels tired still but better than yesterday Nausea better BP is improving Edema is trace No issues with UOP SOB resolved Appetite poor 2/2 nausea No chest pain Responding to current rx No other new issues at this time ROS done and negative unless mentioned as above No change in PFSH All data labs/interval notes and overnight issues are reviewed Objective/ Vitals: 05/04/22 0255 05/04/22 0256 05/04/22 0708 05/04/22 1107 BP: 138/63 127/63 (!) 153/68 Pulse: 70 68 69 Resp: 18 16 16 Temp: (!) 96.6 F (35.9 C) (!) 96.4 F (35.8 C) 96.9 F (36.1 C) TempSrc: Temporal Temporal Temporal Temporal SpO2: 94% 100% 100% Weight: Height: 24HR INTAKE/OUTPUT: Intake/Output Summary (Last 24 hours) at 05/04/2022 1319 Last data filed at 05/04/2022 0256 Gross per 24 hour Intake Output 1000 ml Net -1000 ml Constitutional: Fatigued, no apparent distress Eyes: No icterus, no pallor HEENT: no pallor/cyanosis or icterus Cardiovascular: S1, S2 without m/r/g Respiratory: CTA B without w/r/r, diminished throughout GI: +bs, soft, nt : martinez absent Ext: trace BLE edema Neck: supple, no thyroid enlargement, no JVD elevation Skin: warm, moist, no rashes Data/ Recent Labs 05/02/22 0502 05/03/22 0144 05/04/22 0209 WBC 7.5 6.3 6.1 HGB 8.9* 8.5* 9.2* HCT 26.8* 25.6* 27.5* MCV 90.0 89.5 89.8 PLT 71* 80* 90* Recent Labs 05/02/22 0502 05/03/22 0144 05/04/22 0209 NA 138 136 137 K 4.3 4.5 4.7 CL 104 103 104 CO2 30 30 28 GLUCOSE 233* 255* 268* BUN 43* 33* 30* CREATININE 1.39* 1.51* 1.20 Assessment/Plan 1. DARRELL/ATN likely 2/2 UTI/urosepsis + perfusion injury from relative hypotension + potential involvement of vancomycin Scr back to baseline of 1.20, non-oliguric, BP stable No acute need for [employer] at this time Avoid further IVF as she cannot tolerate it well Need to allow for some rise in scr in setting of diuresis to prevent CHF Bladder scan negative Permissive HTN for adequate renal perfusion to promote renal recovery Avoid nephrotoxins and contrast dye Dose all meds per current eGFR 2. UTI, source unclear -Failed outpatient therapy on Keflex -UA micro noted + UTI with + nitrites, WBCs, and bacteria -Has received vanco x1 inpatient, now on ceftriaxone -Recommend outpatient follow up with urology for recurrent UTIs with hospitalizations 3. CKD3b -Baseline ~1.2 -ROCAEL negative for acute process, sizes appropriate -Tight control of risk factors to slow CKD progression 4. Lactic acidosis -Resolved 5. HTN w/ CKD3b -Permissive HTN for adequate renal perfusion at this time 6. Anemia w/ CKD3b -Agree with prn transfusions for hgb <7 -Hgb goal for CKD is >10 7. Nausea -Resolved -No further changes -Ok for discharge planning from renal standpoint -We will follow closely with you Thank you for the consult and the opportunity to participate in the care of this patient. Please donot hesitate to contact us with any questions or concerns. Hema Carl APRN, TOUR ACTOR [facility] [phone] I have reviewed the above assessment and plan with the HEAD REFRIGERATING ENGINEER. I agree with above note. * Carmen Talamantes, DO - 05/03/2022 2:43 PM EDT Images from the original note were not included. Hospitalist Progress Note 05/03/2022 [phone]: Please page [facility] night Hospitalist for any issues. Subjective: Admit Date: 04/30/2022 PCP: FRANKIE DENG MD Room#: [id number] Interval History: Patient seen and examined at bedside. Patient denies any issues in the interim. No issues per nursing staff. No overnight issues. Denies chest pain, sob, abdominal pain, nausea, vomiting, diarrhea, constipation, fevers, or chills. Patient reports feeling better today. 10 point ROS performed, negative except what is stated as above ADULT DIET; Regular; 5 carb choices (75 gm/meal) Patient Vitals for the past 96 hrs (Last 3 readings): Weight 05/03/22 0425 293 lb 3.2 oz (133 kg) 04/30/22 1632 280 lb (127 kg) 24HR INTAKE/OUTPUT: Intake/Output Summary (Last 24 hours) at 05/03/2022 1443 Last data filed at 05/02/2022 1726 Gross per 24 hour Intake Output 850 ml Net -850 ml LABS: CBC: Recent Labs 05/01/22 0241 05/02/22 0502 05/03/22 0144 WBC 13.7* 7.5 6.3 RBC 3.06* 2.97* 2.86* HGB 9.0* 8.9* 8.5* HCT 27.7* 26.8* 25.6* MCV 90.5 90.0 89.5 RDW 13.6 13.9 13.8 PLT 100* 71* 80* BMP: Recent Labs 05/01/22 0122 05/02/22 0502 05/03/22 0144 NA 136 138 136 K 4.5 4.3 4.5 CL 100 104 103 CO2 30 30 30 BUN 44* 43* 33* CREATININE 1.77* 1.39* 1.51* GLUCOSE 282* 233* 255* CALCIUM 7.8* 7.9* 8.1* ANIONGAP 6 4 3 LIVER PROFILE: Recent Labs 05/01/22 0122 05/02/22 0502 05/03/22 0144 AST 19 16 15 ALT 14 11 12 BILITOT 0.5 0.4 0.3 ALKPHOS 73 70 78 LABALBU 3.2* 3.2* 3.2* PROT 5.6* 5.8* 5.7* PT/INR: No results for input(s): PROTIME, INR in the last 72 hours. CARDIAC ENZYMES: Recent Labs 04/30/22 1655 TROPONINI 0.019 Procalcitonin: Lab Results Component Value Date/Time PROCAL 10.2705/03/2022 01:44 AM COVID-19 PCR: Recent Labs 04/30/22 1656 COVID19 Not Detected. Objective: Vitals: BP 129/68 Pulse 71 Temp 98.1 F (36.7 C) (Temporal) Resp 15 Ht 5' 5 (1.651 m) Wt 293 lb 3.2 oz (133 kg) SpO2 98% BMI 48.79 kg/m Pulse Ox: SpO2 Av.7 % Min: 98 % Max: 100 % Supplemental O2: O2 Flow Rate (L/min): 3 L/min General appearance: No apparent distress, appears stated age and cooperative with exam, obese female in NAD HEENT: Normal cephalic, atraumatic without obvious deformity. Pupils equal, round, and reactive to light. Extra ocular muscles intact. Conjunctivae/corneas clear. Neck: Supple, no obvious range of motion deficits. No jugular venous distention. Trachea midline. Respiratory: Normal respiratory effort. Clear to auscultation, bilaterally without Rales/Wheezes/Rhonchi. Cardiovascular: Regular rate and rhythm with normal S1/S2 without murmurs, rubs or gallops. Abdomen: Soft, non-tender, non-distended with normal bowel sounds. No rebound or guarding. Musculoskeletal: No clubbing, cyanosis or edema bilaterally. Full range of motion without deformity. Skin: Skin color, texture, turgor normal. No rashes or lesions. Neurologic: Neurovascularly intact without any focal sensory/motor deficits. Cranial nerves: II-XIIintact, grossly non-focal. Medications: sodium chloride dextrose cefTRIAXone (ROCEPHIN) IV 1,000 mg IntraVENous Q24H sodium chloride flush 5-40 mL IntraVENous 2 times per day atorvastatin 80 mg Oral Nightly clopidogrel 75 mg Oral Daily ezetimibe 10 mg Oral Daily mometasone-formoterol 2 puff Inhalation BID furosemide 20 mg Oral Daily insulin glargine 28 Units SubCUTAneous BID insulin lispro 12 Units SubCUTAneous TID WC insulin lispro 0-12 Units SubCUTAneous TID WC insulin lispro 0-6 Units SubCUTAneous Nightly isosorbide mononitrate 30 mg Oral Daily metoprolol succinate 25 mg Oral Daily pantoprazole 40 mg Oral QAM AC pregabalin 75 mg Oral BID ranolazine 1,000 mg Oral BID heparin (porcine) 5,000 Units SubCUTAneous 3 times per day Assessment 1. Sepsis 2/2 UTI- SIRS (3/4) -tachycardia, fever, leukocytosis, borderline hypotension 2. UTI, E coli 3. DARRELL 4. Leukocytosis 5. Lactic acidosis 6. Chronic respiratory failure - on 3 L 7. CAD on DAPT 8. CKD3b 9. COPD 10. Type 2 DM 11. HFpEF - EF 63% (09/2021) 12. HTN 13. Untreated DIYA 14. Recent E.coli bacteremia 15. Morbid obesity - BMI 46.59 Plan - Sepsis protocol,, BC negative to date -UC growing out dasilva sensitive Ecoli, de-escalate to Rocephin -nephrology for DARRELL -off IVF and started on lasix per nephrology -am labs, replace lytes prn -increase activity -PT/OT pending BC negative to date, UC abx de-escalated. Patient refusing SNF, would prefer home with [facility]. Possible discharge in 48-72 hrs. -DVT prophylaxis: [] Lovenox [x] Heparin [] SCDs [x] Encourage ambulation [] Already on Anticoagulation Advance Directive: Full Code Discharge planning: TBRizwana Talamantes DO Division of Hospitalist Medicine [place]patient Medical [place] * Ana Lilia Zhu, OT - 05/03/2022 1:57 PM EDT Occupational Therapy Facility/Department: [facility] Daily Treatment Note NAME: Kimberly Patel : 1955 Date of Service: 05/03/2022 Chart review completed, upon entry to room, pt sitting up in bed eating lunch. Introduced self and role and pt states that she is not feeling well and has been nauseated all day. Nursing told her to try and eat something to make her feel better. Pt states that she would love to participate in therapy because she wants to get better, but she is not feeling well today and requested to attempt therapy tomorrow. Pt also requested an afternoon treatment, and if possible a co-treatment with PT d/t high level of assist. Will continue to follow, and re- attempt treatment as time and schedule permits tomorrow. Ana Lilia Zhu OT * Radha Costa MD - 05/03/2022 11:03 AM EDT [facility] Progress Note Subjective/ 66 y.o. year old female who we are seeing in consultation for DARRELL. Feels bad today Nausea+ BP is improving Edema is 1-2+ No issues with UOP SOB improving Appetite poor 2/2 nausea Allergic to zofran No chest pain Responding to current rx No other new issues at this time ROS done and negative unless mentioned as above No change in PFSH All data labs/interval notes and overnight issues are reviewed Objective/ Vitals: 05/02/22 2132 05/03/22 0337 05/03/22 0425 05/03/22 0724 BP: (!) 128/57 136/70 Pulse: 77 75 Resp: 18 14 Temp: 96.8 F (36 C) (!) 96.7 F (35.9 C) TempSrc: Temporal Temporal SpO2: 98% 98% 100% Weight: 293 lb 3.2 oz (133 kg) Height: 24HR INTAKE/OUTPUT: Intake/Output Summary (Last 24 hours) at 05/03/2022 1103 Last data filed at 05/02/2022 1726 Gross per 24 hour Intake Output 850 ml Net -850 ml Constitutional: Fatigued, no apparent distress Eyes: No icterus, no pallor HEENT: no pallor/cyanosis or icterus Cardiovascular: S1, S2 without m/r/g Respiratory: CTA B without w/r/r, diminished throughout GI: +bs, soft, nt : martinez absent Ext: 1-2+ BLE edema Neck: supple, no thyroid enlargement, no JVD elevation Skin: warm, moist, no rashes Data/ Recent Labs 05/01/22 0241 05/02/22 0502 05/03/22 0144 WBC 13.7* 7.5 6.3 HGB 9.0* 8.9* 8.5* HCT 27.7* 26.8* 25.6* MCV 90.5 90.0 89.5 PLT 100* 71* 80* Recent Labs 05/01/22 0122 05/02/22 0502 05/03/22 0144 NA 136 138 136 K 4.5 4.3 4.5 CL 100 104 103 CO2 30 30 30 GLUCOSE 282* 233* 255* BUN 44* 43* 33* CREATININE 1.77* 1.39* 1.51* Assessment/Plan 1. DARRELL/ATN likely 2/2 UTI/urosepsis + perfusion injury from relative hypotension + potential involvement of vancomycin Scr fluctuating, bl~1.20, non-oliguric, BP stable No acute need for [employer]IEF at this time Avoid further IVF as she cannot tolerate it well Lasix restarted 05/02 Need to allow for some rise in scr in setting of diuresis to prevent CHF Bladder scan negative Permissive HTN for adequate renal perfusion to promote renal recovery Avoid nephrotoxins and contrast dye Dose all meds per current eGFR 2. UTI, source unclear -Failed outpatient therapy on Keflex -UA micro noted + UTI with + nitrites, WBCs, and bacteria -Has received vanco x1 inpatient, now on ceftriaxone 3. CKD3b -Baseline ~1.2 -ROCAEL negative for acute process, sizes appropriate -Tight control of risk factors to slow CKD progression 4. Lactic acidosis -Resolved 5. HTN w/ CKD3b -Permissive HTN for adequate renal perfusion at this time 6. Anemia w/ CKD3b -Agree with prn transfusions for hgb <7 -Hgb goal for CKD is >10 7. Nausea -Utilize prn meds for nausea to allow for po intake -No further changes -We will follow closely with you Thank you for the consult and the opportunity to participate in the care of this patient. Please donot hesitate to contact us with any questions or concerns. Hema Carl APRN, TOUR ACTOR [facility] [phone] I have reviewed the above assessment and plan with the HEAD REFRIGERATING ENGINEER. I agree with above note. Continue same Rx. * Didier Esquivel [facility] - 05/02/2022 11:57 PM EDT Pharmacy Vancomycin Consult Follow-Up Note Current Dosin mg q24h Recent Labs 05/01/22 0122 05/02/22 0502 BUN 44* 43* Recent Labs 05/01/22 0122 05/02/22 0502 CREATININE 1.77* 1.39* Recent Labs 05/01/22 0241 05/02/22 0502 WBC 13.7* 7.5 Ht Readings from Last 1 Encounters: 04/30/22 5' 5 (1.651 m) Wt Readings from Last 1 Encounters: 04/30/22 280 lb (127 kg) Body mass index is 46.59 kg/m . Estimated Creatinine Clearance: 55 mL/min (A) (based on SCr of 1.39 mg/dL (H)). Trough: 9.9 mcg/ml drawn 05/02 at 2326 Assessment/Plan: Trough subtherapeutic, will increase dose to 1250 mg q12h and order next level for prior to 4th dose * Carmen Talamantes DO - 05/02/2022 1:36 PM EDT Images from the original note were not included. Hospitalist Progress Note 05/02/2022 [id number]: Please page IMS night Hospitalist for any issues. Subjective: Admit Date: 04/30/2022 PCP: Moe Meyer MD Room#: 194/7383 Interval History: Patient seen and examined at bedside. Patient denies any issues in the interim. No issues per nursing staff. No overnight issues. Denies chest pain, sob, abdominal pain, nausea, vomiting, diarrhea, constipation, fevers, or chills. 10 point ROS performed, negative except what is stated as above ADULT DIET; Regular; 5 carb choices (75 gm/meal) Patient Vitals for the past 96 hrs (Last 3 readings): Weight 04/30/22 1632 280 lb (127 kg) 24HR INTAKE/OUTPUT: Intake/Output Summary (Last 24 hours) at 05/02/2022 1336 Last data filed at 05/02/2022 1003 Gross per 24 hour Intake Output 1500 ml Net -1500 ml LABS: CBC: Recent Labs 04/30/22165405/01/22 0241 05/02/22 0502 WBC 10.9* 13.7* 7.5 RBC 3.68* 3.06* 2.97* HGB 10.7* 9.0* 8.9* HCT 33.4* 27.7* 26.8* MCV 90.9 90.5 90.0 RDW 13.6 13.6 13.9 PLT 212 100* 71* BMP: Recent Labs 04/30/22165405/01/22 0122 05/02/22 0502 NA 135 136 138 K 4.4 4.5 4.3 CL 101 100 104 CO2 30 30 30 BUN 41* 44* 43* CREATININE 1.29* 1.77* 1.39* GLUCOSE 274* 282* 233* CALCIUM 8.6 7.8* 7.9* ANIONGAP 4 6 4 LIVER PROFILE: Recent Labs 04/30/22165405/01/22 0122 05/02/22 0502 AST 21 19 16 ALT 16 14 11 BILITOT 0.7 0.5 0.4 ALKPHOS 99 73 70 LABALBU 3.7 3.2* 3.2* PROT 6.6 5.6* 5.8* PT/INR: No results for input(s): PROTIME, INR in the last 72 hours. CARDIAC ENZYMES: Recent Labs 04/30/221654 TROPONINI 0.019 Procalcitonin: Lab Results Component Value Date/Time PROCAL 28.15 05/01/2022 01:22 AM COVID-19 PCR: Recent Labs 04/30/221655 COVID19 Not Detected. Objective: Vitals: BP (!) 134/58 Pulse 80 Temp 97.2 F (36.2 C) (Temporal) Resp 16 Ht 5' 5 (1.651 m) Wt 280 lb (127 kg) SpO2 100% BMI 46.59 kg/m Pulse Ox: SpO2 Av % Min: 97 % Max: 100 % Supplemental O2: O2 Flow Rate (L/min): 3 L/min General appearance: No apparent distress, appears stated age and cooperative with exam, obese female in NAD HEENT: Normal cephalic, atraumatic without obvious deformity. Pupils equal, round, and reactive to light. Extra ocular muscles intact. Conjunctivae/corneas clear. Neck: Supple, no obvious range of motion deficits. No jugular venous distention. Trachea midline. Respiratory: Normal respiratory effort. Clear to auscultation, bilaterally without Rales/Wheezes/Rhonchi. Cardiovascular: Regular rate and rhythm with normal S1/S2 without murmurs, rubs or gallops. Abdomen: Soft, non-tender, non-distended with normal bowel sounds. No rebound or guarding. Musculoskeletal: No clubbing, cyanosis or edema bilaterally. Full range of motion without deformity. Skin: Skin color, texture, turgor normal. No rashes or lesions. Neurologic: Neurovascularly intact without any focal sensory/motor deficits. Cranial nerves: II-XIIintact, grossly non-focal. Medications: sodium chloride dextrose sodium chloride flush 5-40 mL IntraVENous 2 times per day atorvastatin 80 mg Oral Nightly clopidogrel 75 mg Oral Daily ezetimibe 10 mg Oral Daily mometasone-formoterol 2 puff Inhalation BID furosemide 20 mg Oral Daily insulin glargine 28 Units SubCUTAneous BID insulin lispro 12 Units SubCUTAneous TID WC insulin lispro 0-12 Units SubCUTAneous TID WC insulin lispro 0-6 Units SubCUTAneous Nightly isosorbide mononitrate 30 mg Oral Daily metoprolol succinate 25 mg Oral Daily pantoprazole 40 mg Oral QAM AC pregabalin 75 mg Oral BID ranolazine 1,000 mg Oral BID heparin (porcine) 5,000 Units SubCUTAneous 3 times per day cefepime 2,000 mg IntraVENous Q8H vancomycin 1,500 mg IntraVENous Q24H Assessment 1. Sepsis 2/2 UTI- SIRS (3/4) -tachycardia, fever, leukocytosis, borderline hypotension 2. UTI, E coli 3. DARRELL 4. Leukocytosis 5. Lactic acidosis 6. Chronic respiratory failure - on 3 L 7. CAD on DAPT 8. CKD3b 9. COPD 10. Type 2 DM 11. HFpEF - EF 63% (09/2021) 12. HTN 13. Untreated DIYA 14. Recent E.coli bacteremia 15. Morbid obesity - BMI 46.59 Plan - Sepsis protocol, IVF, empiric abx, follow up Bcx -nephrology for DARRELL -UC growing out E coli, sensitivities pending -am labs, replace lytes prn -increase activity -DVT prophylaxis: [] Lovenox [x] Heparin [] SCDs [x] Encourage ambulation [] Already on Anticoagulation Advance Directive: Full Code Discharge planning: TBD Carmen Talamantes DO [facility] * Radha Costa MD - 05/02/2022 12:33 PM EDT [facility] Progress Note Subjective/ 66 y.o. year old female who we are seeing in consultation for DARRELL. Feels ok, still tired BP is improving Edema is 1+ No issues with UOP Some SOB+ Appetite fair No chest pain Responding to current rx No other new issues at this time ROS done and negative unless mentioned as above No change in PFSH All data labs/interval notes and overnight issues are reviewed Objective/ Vitals: 05/02/22 0327 05/02/22 0718 05/02/22 0823 05/02/22 1120 BP: 123/60 121/61 (!) 134/58 Pulse: 81 72 80 Resp: 18 16 16 Temp: (!) 96.7 F (35.9 C) 97.8 F (36.6 C) 97.2 F (36.2 C) TempSrc: Temporal Temporal Temporal SpO2: 97% 100% 99% 100% Weight: Height: 24HR INTAKE/OUTPUT: Intake/Output Summary (Last 24 hours) at 05/02/2022 1233 Last data filed at 05/02/2022 1003 Gross per 24 hour Intake Output 1500 ml Net -1500 ml Constitutional: Alert, awake, no apparent distress Eyes: No icterus, no pallor HEENT: no pallor/cyanosis or icterus Cardiovascular: S1, S2 without m/r/g Respiratory: CTA B without w/r/r, diminished throughout GI: +bs, soft, nt : martinez absent Ext: 1+ BLE edema Neck: supple, no thyroid enlargement, no JVD elevation Skin: warm, moist, no rashes Data/ Recent Labs 04/30/22 1655 05/01/22 0241 05/02/22 0502 WBC 10.9* 13.7* 7.5 HGB 10.7* 9.0* 8.9* HCT 33.4* 27.7* 26.8* MCV 90.9 90.5 90.0 PLT 212 100* 71* Recent Labs 04/30/22 1655 05/01/22 0122 05/02/22 0502 NA 135 136 138 K 4.4 4.5 4.3 CL 101 100 104 CO2 30 30 30 GLUCOSE 274* 282* 233* BUN 41* 44* 43* CREATININE 1.29* 1.77* 1.39* Assessment/Plan 1. DARRELL/ATN likely 2/2 UTI/urosepsis + perfusion injury from relative hypotension + potential involvement of vancomycin Scr improving, bl~1.20, non-oliguric, BP improving No acute need for [employer] W[employer] CHIEF at this time Stop IVF and resume lasix 20 mg po daily DARRELL workup noted: urine studies will be unreliable, will check ur Na to assess volume status Bladder scan negative Permissive HTN for adequate renal perfusion to promote renal recovery Avoid nephrotoxins and contrast dye Dose all meds per current eGFR 2. UTI, source unclear -Failed outpatient therapy on Keflex -UA micro noted + UTI with + nitrites, WBCs, and bacteria -Has received vanco x1 inpatient 3. CKD3b -Baseline ~1.2 -ROCAEL negative for acute process, sizes appropriate -Tight control of risk factors to slow CKD progression 4. Lactic acidosis -Resolved 5. HTN w/ CKD3b -Permissive HTN for adequate renal perfusion at this time 6. Anemia w/ CKD3b -Agree with prn transfusions for hgb <7 -Hgb goal for CKD is >10 -We will follow closely with you Thank you for the consult and the opportunity to participate in the care of this patient. Please donot hesitate to contact us with any questions or concerns. Hema Carl APRN, TOUR ACTOR [facility] [phone] Seen and examined. Agree with above A and P. Cr improving. Not tolerating much IVF, will stop IVF. Start low dose Lasix. * Vickey Donovan OT - 05/02/2022 10:21 AM EDT Occupational Therapy Facility/Department: [facility] Occupational Therapy Initial Assessment Name: Kimberly Patel : 1955 Date of Service: 05/02/2022 Discharge Recommendations: Subacute/Group Home Facility OT Equipment Recommendations Equipment Needed: (TBD at next level of care) Patient Diagnosis(es): There were no encounter diagnoses. Past Medical History: has a past medical history of CHF (congestive heart failure) (HCC), COPD (chronic obstructive pulmonary disease) (HCC), and Diabetes mellitus (HCC). Past Surgical History: has a past surgical history that includes Cholecystectomy and Endoscopy, colon, diagnostic. Assessment Performance deficits / Impairments: Decreased functional mobility ;Decreased ADL status;Decreased endurance;Decreased balance;Decreased high-level IADLs;Decreased posture Assessment: Pt in 04/30 with c/o generalized weakness, lethargy, fatiuge, and recent UTI. She was previously IND for ADls and transfers with assist for IADLs. Per pt report, she can take few side steps at EOB at baseline and typically completes stand pivot transfers to surfaces. She is currently MODA x2 for functional transfers, MOD A for LB ADLs, CGA - SBA for UB ADLs. SHe requires increased time to complete all functional tasks. She demos increased fatiuge with short activity and toelrates ~ 30 seconds standing at EOB before requiring return to sitting. She demos dizziness wtih return to supine. She would benefit from skilled OT services to address the above performance deficits. REcommend planned D/C for SNF Prognosis: Good;Guarded Decision Making: Medium Complexity History: Pt in 04/30 with c/o generalized weakness, lethargy, fatiuge, and recent UTI. Exam: AM-PAC Assistance / Modification: MOD A x2 REQUIRES OT FOLLOW-UP: Yes Activity Tolerance Activity Tolerance: Patient limited by fatigue Plan Plan Times per Week: 6 visits Current Treatment Recommendations: Strengthening,Balance training,Functional mobility training,Endurance training,Safety education & training,Patient/Caregiver education & training,Equipment evaluation, education, & procurement,Self-Care / ADL,Home management training Plan Comment: POC and goals established in collaboratoin with pt. Restrictions Restrictions/Precautions Restrictions/Precautions: Fall Risk,General Precautions Required Braces or Orthoses?: No Subjective General Chart Reviewed: Yes Patient assessed for rehabilitation services?: Yes Family / Caregiver Present: No Subjective Subjective: pleasant and cooperative General Comment Comments: OK to see per RN denies Social/Functional History Social/Functional History Lives With: Daughter Type of Home: House Home Layout: One level Home Access: Stairs to enter with rails Entrance Stairs - Number of Steps: 1 Bathroom Shower/Tub: Walk-in shower Bathroom Toilet: Standard Bathroom Equipment: Shower chair Bathroom Accessibility: Walker accessible Home Equipment: Wheelchair-manual,Walker, rolling Receives Help From: Family ADL Assistance: Independent Homemaking Assistance: Needs assistance Ambulation Assistance: Non-ambulatory (pt reports she uses office chair to roll around house, does have w/c at home) Transfer Assistance: Independent Objective Heart Rate: 72 Heart Rate Source: Monitor BP: 121/61 BP Location: Right Arm Patient Position: Supine MAP (Calculated): 81 Resp: 16 SpO2: 99 % O2 Device: Nasal cannula Observation/Palpation Posture: Fair Observation: tele, PIV, O2 intact Edema: BLE Safety Devices Type of Devices: Gait belt;Nurse notified;All fall risk precautions in place;Patient at risk for falls;Call light within reach;Left in bed Restraints Restraints Initially in Place: No Balance Sitting: (SBA seated EOB) Standing: (~ 30 seconds standing at FWW, good hand placement at device, heavy offloading through BUE. Fatigues quickly in standing) Gait Overall Level of Assistance: (NT at this time d/t diminished standing tolerance) AROM: Generally decreased, functional (~ 90 BUE shoulder flexion functionally observed) Strength: Generally decreased, functional (>+3/5 grossly observed with functional activity BUE) ADL Feeding: Modified independent Grooming: Stand by assistance UE Bathing: Stand by assistance LE Bathing: Moderate assistance UE Dressing: Contact guard assistance LE Dressing: Moderate assistance Toileting: Moderate assistance Additional Comments: Pt requires heavy reliance on FWW in standing at this time with diminished standing tolerance noted. Increased time required to complete all functional tasks. She required increased assist to don cherise socks seated at EOB at this time. Pt limited in standing ADLs d/t diminished standing tolerance Activity Tolerance Activity Tolerance: Patient limited by fatigue;Patient limited by endurance Bed mobility Supine to Sit: Minimal assistance Sit to Supine: Moderate assistance Scooting: Contact guard assistance Bed Mobility Comments: Pt denies dizziness. She complete supine to sit with min A to elevate trunk.She sits EOB SBA, returns to supine with mod A to guide trunk and raise BLE. Transfers Slide Board: Moderate assistance;2 Person assistance Stand to sit: Moderate assistance;2 Person assistance Transfer Comments: at FWW, pt with increased reliance on pull up on FWW, requiring assist for lift off of bed and for FWW stability. Required 2 skilled therapists to safely complete functional trasnfers d/t diminshed endurance. Increased time required to complete. No c/o dizziness with change in position Cognition Overall Cognitive Status: WFL Orientation Overall Orientation Status: Within Functional Limits Education Given To: Patient Education Provided: Role of Therapy;Plan of Care;Transfer Training Education Method: Demonstration;Verbal Education Outcome: Verbalized understanding;Continued education needed AM-PAC Score AM-PAC Inpatient Daily Activity Raw Score: 16 (05/02/22 1022) AM-PAC Inpatient ADL T-Scale Score : 35.96 (05/02/22 1022) ADL Inpatient CMS 0-100% Score: 53.32 (05/02/22 1022) ADL Inpatient CMS G-Code Modifier : CK (05/02/221021) Goals Short Term Goals Time Frame for Short term goals: 6 visits Short Term Goal 1: Pt will complete functional transfers / EOB mobility with MOD A and FWW Short Term Goal 2: Pt will complete UB ADLs with MOD I Short Term Goal 3: Pt will complete LB ADLs with MIN A Short Term Goal 4: Pt will complete BSC level toileting with MIN A and FWW Short Term Goal 5: Pt will tolerate > 1 minutes of functional standing to increase endurance forADLs and functional stand pivot transfers. Patient Goals Patient goals : none stated Therapy Time Individual Concurrent Group Co-treatment Time In 0900 (OT / PT coeval d/t hx of diminished activity tolerance) Time Out 0917 Minutes 17 Vickey Donovan OT * Moe Burns PT - 05/02/2022 10:02 AM EDT Physical Therapy Facility/Department: [facility] Physical Therapy Initial Assessment Name: Kimberly Patel : 1955 Date of Service: 05/02/2022 Discharge Recommendations: Subacute/Group Home Facility PT Equipment Recommendations Equipment Needed: No Patient Diagnosis(es): There were no encounter diagnoses. Past Medical History: has a past medical history of CHF (congestive heart failure) (HCC), COPD (chronic obstructive pulmonary disease) (HCC), and Diabetes mellitus (HCC). Past Surgical History: has a past surgical history that includes Cholecystectomy and Endoscopy, colon, diagnostic. Assessment Body Structures, Functions, Activity Limitations Requiring Skilled Therapeutic Intervention: Decreased functional mobility ;Decreased strength;Decreased safe awareness;Decreased endurance;Decreased balance Assessment: Pt presents with above deficits after admission 04/30 for UTIs, sepsis. At baseline pt indepenendent in stand-pivot txr with no device bed>chair; has w/c but reports roolling around in office chair at home. She demo bed mobility min-mod A, functional transfer to FWW with mod x2 assist and unable to ambulate. She is at increased falls risk, unsafe to return home this date, will benefit from skilled therapy to promote safety and mobility Therapy Prognosis: Good Decision Making: Medium Complexity History: UTIs, CHF, COPD Exam: [facility] Clinical Presentation: Pt admitted 04/30 with UTI/sepsis. She has medical history as indicated which contributes to her clinical presentation. She demo bed mobility min-mod A, functional transfer to FWW mod x2 assist, unable to sequence steps this date. She will benefit from SNF to promote safety andmobility Barriers to Learning: None Requires PT Follow-Up: Yes Activity Tolerance Activity Tolerance: Patient limited by fatigue;Patient limited by endurance Plan Plan Plan: (8 visits) Current Treatment Recommendations: Strengthening,Balance training,Functional mobility training,Transfer training,Stair training,Gait training,Endurance training,Pain management,Equipment evaluation, education, & procurement,Therapeutic activities,Home exercise program,Positioning,Safety education & training,Patient/Caregiver education & training Plan Comment: goals and treatment plan established in collaboration with pt Safety Devices Type of Devices: Gait belt,Nurse notified,All fall risk precautions in place,Patient at risk for falls,Call light within reach,Left in bed Restrictions Restrictions/Precautions Restrictions/Precautions: Fall Risk,General Precautions Required Braces or Orthoses?: No Subjective Pain: denies General Chart Reviewed: Yes Patient assessed for rehabilitation services?: Yes Additional Pertinent Hx: CHF, COPD Family / Caregiver Present: No Follows Commands: Within Functional Limits General Comment Comments: Per RN pt okay for therapy Subjective Subjective: Pt pleasant and agreeable to PT Social/Functional History Social/Functional History Lives With: Daughter Type of Home: House Home Layout: One level Home Access: Stairs to enter with rails Entrance Stairs - Number of Steps: 1 Bathroom Shower/Tub: Walk-in shower Bathroom Toilet: Standard Bathroom Equipment: Shower chair Bathroom Accessibility: Walker accessible Home Equipment: Wheelchair-manual,Walker, rolling Receives Help From: Family ADL Assistance: Independent Homemaking Assistance: Needs assistance Ambulation Assistance: Non-ambulatory (pt reports she uses office chair to roll around house, does have w/c at home) Transfer Assistance: Independent Vision/Hearing Vision Vision: Within Functional Limits Hearing Hearing: Within functional limits Cognition Orientation Overall Orientation Status: Within Functional Limits Cognition Overall Cognitive Status: WFL Objective Observation/Palpation Posture: Fair Observation: tele, PIV, O2 intact Edema: BLE Gross Assessment AROM: Generally decreased, functional Strength: Generally decreased, functional Tone: Normal Sensation: Intact Bed mobility Supine to Sit: Minimal assistance Sit to Supine: Moderate assistance Scooting: Contact guard assistance Bed Mobility Comments: Pt denies dizziness. She complete supine to sit with min A to elevate trunk.She sits EOB SBA, returns to supine with mod A to guide trunk and raise BLE. Transfers Sit to Stand: 2 Person Assistance;Moderate Assistance Stand to sit: 2 Person Assistance;Moderate Assistance Comment: Pt complete functional transfer to FWW with mod x2 assist. Theerapist cues pt for hand andfoot placement, cues for upright trunk posture. Pt relies on momentum to assist to stand. Once standing pt maintains ~1 min before returning to sit, unable to sequence steps Ambulation Comments: unable Balance Posture: Fair Sitting - Static: Good;- Sitting - Dynamic: Fair;+ Standing - Static: Fair;- AM-PAC Score AM-PAC Inpatient Mobility Raw Score : 6 (05/02/22926) AM-PAC Inpatient T-Scale Score : 23.55 (05/02/22926) Mobility Inpatient CMS 0-100% Score: 100 (05/02/22926) Mobility Inpatient CMS G-Code Modifier : CN (05/02/22926) Goals Short Term Goals Time Frame for Short term goals: 8 visits Short term goal 1: Pt will complete bed mobility SBA to promote mobility Short term goal 2: Pt will complete functional transfer to FWW with min A to promote safety Short term goal 3: Pt will transfer bed>chair with FWW and min A to promote mobility Short term goal 4: Pt will complete 1-2 sets 5-10 reps LE exercise to promote strength Patient Goals Patient goals : Pt wants to go home Education Patient Education Education Given To: Patient Education Provided: Role of Therapy;Transfer Training;Equipment;Plan of Care;Energy Conservation;Fall Prevention Strategies;Precautions Education Method: Verbal;Demonstration Barriers to Learning: None Education Outcome: Verbalized understanding;Continued education needed Therapy Time Individual Concurrent Group Co-treatment Time In 0857 (co-eval with OT for pt increased level assist) Time Out 0915 Minutes 18 Moe Burns PT * Marsha Shahid - 05/02/2022 8:49 AM EDT Nutrition rescreen completed. Patient assigned a level 1. * Batsheva Lopes RN - 05/02/2022 6:32 AM EDT Patient refusing to be weighed stating that she can not lay down she is filling up with fluid, refusing iv fluid at this time. Also. * Rob Lai MD - 05/01/2022 7:51 AM EDT Images from the original note were not included. Hospitalist Progress Note 05/01/[phone]: Please page me ([phone]) for patient care issues. [phone]: Please page [facility] night Hospitalist for any issues. Subjective: Admit Date: 04/30/2022 PCP: Moe Meyer MD Room#: 418/7424 Interval History: No overnight issues. Feels slightly better today. Still fatigued. Denies chest pain, sob, abdominal pain, nausea, vomiting, diarrhea, constipation, fevers, or chills. ADULT DIET; Regular; 5 carb choices (75 gm/meal) Patient Vitals for the past 96 hrs (Last 3 readings): Weight 04/30/22 1632 280 lb (127 kg) 24HR INTAKE/OUTPUT: Intake/Output Summary (Last 24 hours) at 05/01/2022 0751 Last data filed at 05/01/2022 0649 Gross per 24 hour Intake 700 ml Output Net 700 ml Past Medical History: Diagnosis Date CHF (congestive heart failure) (HCC) COPD (chronic obstructive pulmonary disease) (HCC) Diabetes mellitus (HCC) LABS: CBC: Recent Labs 04/30/22165405/01/22 0241 WBC 10.9* 13.7* RBC 3.68* 3.06* HGB 10.7* 9.0* HCT 33.4* 27.7* MCV 90.9 90.5 RDW 13.6 13.6 PLT 212 100* BMP: Recent Labs 04/30/22165405/01/22 0122 NA 135 136 K 4.4 4.5 CL 101 100 CO2 30 30 BUN 41* 44* CREATININE 1.29* 1.77* GLUCOSE 274* 282* CALCIUM 8.6 7.8* ANIONGAP 4 6 LIVER PROFILE: Recent Labs 04/30/22165405/01/22 012 AST 21 19 ALT 16 14 BILITOT 0.7 0.5 ALKPHOS 99 73 LABALBU 3.7 3.2* PROT 6.6 5.6* PT/INR: No results for input(s): PROTIME, INR in the last 72 hours. CARDIAC ENZYMES: Recent Labs 04/30/221654 TROPONINI 0.019 Procalcitonin: Lab Results Component Value Date/Time PROCAL 9.92 10/06/2021 03:11 AM COVID-19 PCR: Recent Labs 04/30/221655 COVID19 Not Detected. Objective: Vitals: BP (!) 124/56 Pulse 89 Temp 97.1 F (36.2 C) (Temporal) Resp 16 Ht 5' 5 (1.651 m) Wt 280 lb (127 kg) SpO2 98% BMI 46.59 kg/m Pulse Ox: SpO2 Av % Min: 94 % Max: 98 % Supplemental O2: O2 Flow Rate (L/min): 2 L/min General appearance: No apparent distress, appears stated age and cooperative with exam HEENT: Normal cephalic, atraumatic without obvious deformity. Pupils equal, round, and reactive to light. Extra ocular muscles intact. Conjunctivae/corneas clear. Neck: Supple, with full range of motion. No jugular venous distention. Trachea midline. No lymphadenopathy. Respiratory: Normal respiratory effort. Clear to auscultation, bilaterally without Rales/Wheezes/Rhonchi. Cardiovascular: Regular rate and rhythm with normal S1/S2 without murmurs, rubs or gallops. Abdomen: Soft, non-tender, non-distended with normal bowel sounds. No rebound or guarding. Musculoskeletal: No clubbing, cyanosis or edema bilaterally. Full range of motion without deformity. Skin: Skin color, texture, turgor normal. No rashes or lesions. Neurologic: Neurovascularly intact without any focal sensory/motor deficits. Cranial nerves: II-XIIintact, grossly non-focal. Medications: sodium chloride dextrose sodium chloride 100 mL/hr at 05/01/22 0649 sodium chloride flush 5-40 mL IntraVENous 2 times per day atorvastatin 80 mg Oral Nightly clopidogrel 75 mg Oral Daily ezetimibe 10 mg Oral Daily mometasone-formoterol 2 puff Inhalation BID furosemide 20 mg Oral Daily insulin glargine 28 Units SubCUTAneous BID insulin lispro 12 Units SubCUTAneous TID WC insulin lispro 0-12 Units SubCUTAneous TID WC insulin lispro 0-6 Units SubCUTAneous Nightly isosorbide mononitrate 30 mg Oral Daily metoprolol succinate 25 mg Oral Daily pantoprazole 40 mg Oral QAM AC pregabalin 75 mg Oral BID ranolazine 1,000 mg Oral BID heparin (porcine) 5,000 Units SubCUTAneous 3 times per day cefepime 2,000 mg IntraVENous Q8H vancomycin 1,500 mg IntraVENous Q24H Assessment 1. Sepsis 2/2 UTI- SIRS (3/4) -tachycardia, fever, leukocytosis, borderline hypotension 2. UTI 3. DARRELL 4. Leukocytosis 5. Lactic acidosis 6. Chronic respiratory failure - on 3 L 7. CAD on DAPT 8. CKD3b 9. COPD 10. Type 2 DM 11. HFpEF - EF 63% (09/2021) 12. HTN 13. Untreated DIYA 14. Recent E.coli bacteremia 15. 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 Updated physician, pt now has order for IV fluids. * Sravanthi Bal RN - 04/30/2022 7:45 PM EDT Patient admitted to room 453. Oriented to call system and visiting hours and meal times. No distress noted.Call Light within reach. documented in this [facility] Work Phone: [phone]) 308-871507-09-2022 Hospital Discharge instructions* Discharge Instr - Lab* Zelda Salazar LPN - 05/06/2022 7:33 PM EDT Your physician has ordered skilled home care services for you. Your home care will be provided by: [facility] [phone] * Additional Instructions* Carli Benites MD - 05/07/2022 Follow up with nephrology as scheduled documented in this encounterSUMEBS Worldwide Services Work Phone: [phone]) 876-350706-17-2022 Miscellaneous Notes* Telephone Encounter - Frankie Deng MD - 04/14/2022 5:59 PM EDT Happy to assist. Consult signed. * Telephone Encounter - Susan Cuello RPh - 04/14/2022 1:[address] Deng, I am the clinical pharmacist currently consulted to aid in diabetes management for this mutual patient. I was originally referred by this patient's previous PCP, Dr. Meyer. Since the patient has since transitioned care to you, I have pended an updated consult order to this encounter if you agree toapprove. Thank you, Susan Cuello PharmD documented in this [facility] NoteHNO ID: [id number] Author: Susan Kehr, RPh Service: ? Author Type: Pharmacist Type: Progress Notes Filed: 04/14/2022 1:18 PM Note Text: Primary Care Pharmacy Visit Patient consents to pharmacy consult agreement. CC (Reason for Consult):?Type 2 diabetes mellitus with diabetic polyneuropathy, with long-term current use of insulin (HCC) - ICD9: 250.60, 357.2, V58.67, ICD10: E11.42, Z79.4 ? Goal: A1c <8% Last Collaborating Physician Visit: [facility] (Dr. Deng), 03/22/22 [facility] (HEAD REFRIGERATING ENGINEER Shea Childers), 04/13/22 Kimberly Patel is a 66 year old female presenting for follow up visit by telephone. Patient consents to pharmacy collaborative practice agreement. . HPI: patient was diagnosed with?T2DM?>10 yrs ago (pt uncertain of year).?Established with pharmacist for diabetes management on 08/05/21. Last seen by pharmacy on 03/22/22 at which time: - CGM with minimal data as was only active 24% in prev 2 weeks; BG significantly above goal when checked - Pt not open to switch to U-500 insulin - Increased basal and bolus insulin by ~20% - Humalog switched to U-200 volume pens to last longer - Switched to longer insulin pen needle size (8 mm) - Discussed need for improvement in diet INTERIM HISTORY: - 04/13/22 - [facility]: virtual visit d/t recurrent UTI; advised to introduce yogurt and probiotics in her diet - 04/10/22 - ED admission d/t acute cystitis and CP; prescribed cephalexin 500 mg 4 times daily x10 days for UTI - 03/22/22 - [facility]: initial visit. No DM med changes made. Labs ordered. SUBJECTIVE: - Starting to feel better since recent UTI per patient - Reports having difficulty with her sensors staying on for the full 14 days o Has not yet tried to use adhesive aid products - Still not always adherent to Humalog o Almost always skips Humalog with breakfast o Sometimes skips Humalog with her lunch if she is only having 1 sandwich o Almost always takes Humalog with her dinner - Has NOT been pinching her skin with new, longer 8 mm needles o I do not have any jiggle to pinch, so I am just sticking the needle straight in - Not open to switching insulin products at this time - Reports she is comfortable with dialing insulin pen twice, if needed for full dose d/t Levemir pen only dialing to 80 units at a time Current?DM medications:? ? linagliptin?5 mg daily ? Levemir?78?units BID?(~8 am, 8 pm)? Humalog?50?units?before breakfast,?50?units before lunch,?50?units before dinner? Previously?trialed DM medications: ? Sitagliptin --?changed to linagliptin ? Metformin IR --?stopped in Jan 2021 d/t diarrhea ? Jardiance ?-- stopped d/t h/o severe UTIs resulting in sepsis ? Trulicity ?-- stopped d/t severe nausea ? ? DIET: ? Meals:?2-3?meals/day (no set meals); daughter cooks for her at night; grazes in daytime ? Trying to follow diet set by HF clinic ? Daughter brings her the meals (not at set time each day) ? Recent Diet changes:?mostly processed food in the day; dinner is home-cooked by daughter ? Breakfast:?5-7 strawberries, coffee ? Lunch:?sandwich (deli-sandwhich, egg salad, PBANDJ, tuna fish) ? Dinner (~6:30-7 pm):?chicken, veggies, stuffing or carbs ? Snacks:?fresh fruit (oranges, apples) - not usually at bedtime ? Beverages:?caffiene coffee (with cream; 1 cup/day), water (64 oz/day), V8 juice (once weekly), regular pepsi (1 every 2 weeks) ? Sodium Intake:?does NOT add; uses Ms. Dash (HF sodium-free diet); does reportedly lightly salt pakistani fries infrequently ? EXERCISE:?walks around inside of house. Has difficulty walking; can stand and pivot. Uses office chair with wheels to move around the inside of house.?Reports having displaced vertebrae pushing on nerve and degenerative disk disease limiting her ability to walk. ? SOCIAL Hx: ? Tobacco:?denies ? Alcohol:?denies ? Illicits:?denies ROS: - Patient denies CP, SOB, HEAD, blurred vision, dizziness or lightheadedness - Patient denies nausea, vomiting, diarrhea, abdominal pain - Patient denies symptoms of hypoglycemia (sweating, anxiety, palpitations, hunger, and tremor) - Patient denies symptoms of hyperglycemia (polyuria, polydipsia, polyphagia) - Patient denies potential medication adverse effects Past medical, family and social history reviewed and updated. ACTIVE PROBLEM LIST Diya (Obstructive Sleep Apnea) Chf (Congestive Heart Failure) ([facility]) Type 2 Diabetes Mellitus With Diabetic Polyneuropathy, With Long-Term Current Use of Insulin ([facility]) Coronary Arteriosclerosis in [place] Artery Bipolar Disorder ([facility]) Mixed Hyperlipidemia Class 3 Severe Obesity With Serious Comorbidity and Body Mass Index (Bmi) of 45.0 to 49.9 in Adult ([facility]) Chronic Respiratory Failure With Hypoxia ([facility]) Chronic Ob (more content not included)...[facility]06-17-2022 History of Present illness Narrative* Susan Cuello, [facility] - 04/14/2022 11:30 AM EDT Images from the original note were not included. Primary Care Pharmacy Visit Patient consents to pharmacy consult agreement. CC (Reason for Consult): Type 2 diabetes mellitus with diabetic polyneuropathy, with long-term current use of insulin ([facility]) - ICD9: 250.60, 357.2, V58.67, ICD10: E11.42, Z79.4 Goal: A1c <8% Last Collaborating Physician Visit: [facility] (Dr. Deng), 03/22/22 [facility] (HEAD REFRIGERATING ENGINEER Shea Childers), 04/13/22 Kimberly Patel is a 66 year old female presenting for follow up visit by telephone. Patient consentsto pharmacy collaborative practice agreement. . HPI: patient was diagnosed with T2DM >10 yrs ago (pt uncertain of year). Established with pharmacist for diabetes management on 08/05/21. Last seen by pharmacy on 03/22/22 at which time: CGM with minimal data as was only active 24% in prev 2 weeks; BG significantly above goal when checked Pt not open to switch to U-500 insulin Increased basal and bolus insulin by ~20% Humalog switched to U-200 volume pens to last longer Switched to longer insulin pen needle size (8 mm) Discussed need for improvement in diet INTERIM HISTORY: 04/13/22 - [facility]: virtual visit d/t recurrent UTI; advised to introduce yogurt and probiotics in her diet 04/10/22 - ED admission d/t acute cystitis and CP; prescribed cephalexin 500 mg 4 times daily x10 days for UTI 03/22/22 - [facility]: initial visit. No DM med changes made. Labs ordered. SUBJECTIVE: Starting to feel better since recent UTI per patient Reports having difficulty with her sensors staying on for the full 14 days o Has not yet tried to use adhesive aid products Still not always adherent to Humalog o Almost always skips Humalog with breakfast o Sometimes skips Humalog with her lunch if she is only having 1 sandwich o Almost always takes Humalog with her dinner Has NOT been pinching her skin with new, longer 8 mm needles o I do not have any jiggle to pinch, so I am just sticking the needle straight in Not open to switching insulin products at this time Reports she is comfortable with dialing insulin pen twice, if needed for full dose d/t Levemir pen only dialing to 80 units at a time Current DM medications: linagliptin 5 mg daily Levemir 78 units BID (~8 am, 8 pm) Humalog 50 units before breakfast, 50 units before lunch, 50 units before dinner Previously trialed DM medications: Sitagliptin -- changed to linagliptin Metformin IR -- stopped in Jan 2021 d/t diarrhea Jardiance -- stopped d/t h/o severe UTIs resulting in sepsis Trulicity -- stopped d/t severe nausea DIET: Meals: 2-3 meals/day (no set meals); daughter cooks for her at night; grazes in daytime ? Trying to follow diet set by HF clinic ? Daughter brings her the meals (not at set time each day) Recent Diet changes: mostly processed food in the day; dinner is home-cooked by daughter Breakfast: 5-7 strawberries, coffee Lunch: sandwich (deli-sandwhich, egg salad, PB&J, tuna fish) Dinner (~6:30-7 pm): chicken, veggies, stuffing or carbs Snacks: fresh fruit (oranges, apples) - not usually at bedtime Beverages: caffiene coffee (with cream; 1 cup/day), water (64 oz/day), V8 juice (once weekly), regular pepsi (1 every 2 weeks) Sodium Intake: does NOT add; uses MsBrandi Dash (HF sodium-free diet); does reportedly lightly salt pakistani fries infrequently EXERCISE: walks around inside of house. Has difficulty walking; can stand and pivot. Uses office chair with wheels to move around the inside of house. Reports having displaced vertebrae pushing on nerve and degenerative disk disease limiting her ability to walk. SOCIAL Hx: Tobacco: denies Alcohol: denies Illicits: denies ROS: Patient denies CP, SOB, HEAD, blurred vision, dizziness or lightheadedness Patient denies nausea, vomiting, diarrhea, abdominal pain Patient denies symptoms of hypoglycemia (sweating, anxiety, palpitations, hunger, and tremor) Patient denies symptoms of hyperglycemia (polyuria, polydipsia, polyphagia) Patient denies potential medication adverse effects Past medical, family and social history reviewed and updated. ACTIVE PROBLEM LIST Diya (Obstructive Sleep Apnea) Chf (Congestive Heart Failure) ([facility]) Type 2 Diabetes Mellitus With Diabetic Polyneuropathy, With Long-Term Current Use of Insulin ([facility]) Coronary Arteriosclerosis in [place] Artery Bipolar Disorder ([facility]) Mixed Hyperlipidemia Class 3 Severe Obesity With Serious Comorbidity and Body Mass Index (Bmi) of 45.0 to 49.9 in Adult ([facility]) Chronic Respiratory Failure With Hypoxia ([facility]) Chronic Obstructive Pulmonary Disease ([facility]) Physical Debility Recurrent Uti (Urinary Tract Infection) Primary Hypertension Stage 3b Chronic Kidney Disease ([facility]) Microalbuminuria Restrictive Lung Disease Chronic Heart Failure With Preserved Ejection Fraction (Hfpef) ([facility]) Requires Assistance With Activities of Daily Living (Adl) Weakness of Both Legs Ddd (Degenerative Disc Disease), Lumbar Spondylolisthesis of Lumbar Region Trigger Middle Finger of Right Hand History of Covid-19 Slow Transit Constipation PAST MEDICAL HISTORY Diagnosis Date Asthma CAD (coronary artery disease) s/p stent. last one >5 years ago CHF (congestive heart failure) ([facility]) COPD (chronic obstructive pulmonary disease) ([facility]) DM2 (diabetes mellitus, type 2) ([facility]) HTN (hypertension) Mixed hyperlipidemia Pneumonia due to COVID-19 virus 10/13/2020 ALLERGIES Allergen Reactions Dilaudid [Hydromorp* Vomiting Jardiance [Empaglif* Other: See Comments UTI Metformin Diarrhea Morphine Vomiting Ondansetron Unknown Penicillins Rash Trulicity [Dulaglut* GI Upset Nausea/Vomiting MEDICATIONS/SUPPLIES: Pill bottles are not present. Adherence: reports missed doses. Organization System: Integrate Pill-pack for all oral meds (Divvy-Dose) Does the patient have diabetes supplies: Yes ? CGM = BlueConic 2; has mobile fern & reader device (via [employer]; $0 co-pay) In current transition to new CGM supply company --> [employer] Supp[employer]... ? Glucometer = One touch ultra 2 ? Lancing Device = [facility]: [address] [id number] [place] [address] [phone] [facility] [phone] [id number] ? Divvy-Dose for maintenance meds ? [facility] for [facility]ul[facility] and emergent / short term meds Rx coverage: Payor: [facility] MEDICARE / Plan: [facility] DUAL COMPLETE HMO SNP / Product Type: Medicare / Medication Affordability: No cost concerns at this time Medication List Medication Directions Comments Action/Plan albuterol (PROVENTIL) 2.5 mg /3 mL (0.083 %) nebulizer solution Use 3 mL via nebulizer every 4 hours as needed for wheezing/shortness of breath. albuterol HFA (PROVENTIL HFA, VENTOLIN HFA) 90 mcg/actuation inhaler Inhale 2 Puffs as instructed every 4 hours as needed for wheezing/shortness of breath. aspirin, enteric coated (ASPIRIN LOW DOSE) 81 mg EC tablet Take 81 mg by mouth once daily. atorvastatin (LIPITOR) 80 mg tablet Take 1 tablet by mouth every day cephALEXin (KEFLEX) 500 mg capsule Take 1 capsule by mouth four times daily for 10 days. ezetimibe (ZETIA) 10 mg tablet TAKE 1 TABLET BY MOUTH EVERY DAY flash glucose scanning reader ([employer] GABRIELLE 2 READER) 1 Each. Use as directed to check blood sugars 3 times daily. Scan FreeStyle Gabrielle 2 sensors at least every 8 hours. flash glucose sensor (FREESTYLE GABRIELLE 2 SENSOR) kit 2 Each. Use as directed to check blood sugars 3times daily. Scan FreeStyle Gabrielle 2 sensors at least every 8 hours. Replace sensor every 14 days. fluticasone-vilanterol (BREO ELLIPTA) 200-25 mcg/dose inhaler Inhale 1 Inhalation as instructed once daily. furosemide (LASIX) 20 mg tablet Take 1 tablet by mouth once daily. HUMALOG KWIKPEN INSULIN 200 unit/mL (3 mL) injection INJECT 50 UNITS SUBCUTANEOUSLY BEFORE BREAKFAST, 50 UNITS SUBCUTANEOUSLY BEFORE LUNCH, 50 UNITS SUBCUTANEOUSLY BEFORE DINNER. ADMINISTER THIS WITHIN 15 MINUTES BEFORE YOUR MEALS OR IMMEDIATELY AFTER YOUR MEALS. confirmed HYDROcodone-Acetaminophen (NORCO) 7.5-325 mg per tablet Take 1 tablet by mouth once daily as neededfor pain. insulin detemir U-100 (LEVEMIR FLEXTOUCH U-100 INSULIN) 100 unit/mL (3 mL) injection pen Inject 78 units subcutaneously twice daily confirmed insulin needles, DISPOSABLE, (COMFORT EZ PEN NEEDLES) 31 gauge x 5/16 Use as directed to inject insulin 5 times daily as directed. insulin: yes, E11.42 isosorbide mononitrate ER (IMDUR) 30 mg 24 hr tablet Take 1 tablet by mouth once daily. lancets 33 gauge None Entered Lancets lancets Use as directed to check blood sugar 3 times daily, insulin: yes, E11.9 Lancing Device (LANCING DEVICE WITH LANCETS) misc Use as directed to check blood sugar 3 times daily, insulin: yes, E11.9 linaGLIPtin (TRADJENTA) 5 mg tab Take 1 tablet by mouth once daily. confirmed losartan (COZAAR) 50 mg tablet Take 1 tablet by mouth every day metoprolol succinate ER (TOPROL XL) 25 mg 24 hr tablet Take 1 tablet by mouth every day mupirocin (BACTROBAN) 2 % ointment as needed. nitroglycerin sublingual (NITROQUICK) 0.4 mg SL tablet Dissolve 1 tablet under the tongue as neededfor chest pain. If no pain relief call 911. omeprazole (PRILOSEC) 20 mg capsule Take 1 capsule by mouth once daily. polyethylene glycol 3350 (MIRALAX, GLYCOLAX) 17 gram packet Take 1 Packet by mouth once daily as needed (constipation). pregabalin (LYRICA) 75 mg capsule Take 1 capsule by mouth twice daily for 180 days. ranolazine SR (RANEXA) 1,000 mg tab ER 12 hr Take 1,000 mg by mouth twice daily. WALKER ROLLATOR SEAT WITH 6 WHEELS - RED Walker rollator with seat Rx meds not listed in EPIC: No OTCs: No Herbals/Supplements: No Renally dosed appropriately? Yes Drug-drug interactions: none identified On ZAHIRA/ARB: yes On Statin: yes GLYCEMIC CONTROL: Glucometer/CGM present at visit: Yes ; Tins.ly info shared remotely Summary of CGM Findings: CGM recording is adequate for interpretation; glucose variability: 30.2% (goal <36%) Average glucose is 173 mg/dL Very High (>250 mg/dL) 8% High (181-250 mg/dL) 41% Time in target range (70-180 mg/dL) 51% Low (54-69 mg/dL) <1% Very low (<54 mg/dL) 0% Nocturnal hypoglycemia? - No Hypoglycemia: 3 recent events (64 mg/dL, 67 mg/dL, 69 mg/dL) though reportedly treated appropriately and resolved Hypoglycemia awareness: yes (felt weak and shakey) How corrected: Oearnest Ford, julia; previously reviewed rule of 15 VITALS: There were no vitals taken for this visit. Last 3 Encounter BP Readings: Date: BP: 04/10/2022 148/69 03/22/2022 122/62 09/19/2021 118/56 Wt: 127 kg (280 lb) BMI: 46.59 kg/(m^2) LABS Lab Results Component Value Date HBA1C 10.8 08/26/2021 HBA1C 10.5 11/28/2020 HBA1C 12.1 10/14/2020 HBA1C 8.3 04/12/2020 HBA1C 7.6 12/30/2019 CMP: Glucose 202 04/10/2022 BUN 28 04/10/2022 Creatinine 1.42 04/10/2022 Sodium 141 04/10/2022 Potassium 4.5 04/10/2022 Albumin 3.0 04/10/2022 Calcium 8.4 04/10/2022 AST 18 04/10/2022 ALT 16 04/10/2022 Estimated Creatinine Clearance: 53.7 mL/min (A) (based on SCr of 1.42 mg/dL (H)). eGFR-All Other Races (.) Date Value 08/26/2021 43 Estimated Glomerular Filtration Rate (mL/min/1.73m ) Date Value 04/10/2022 41 Lab Results Component Value Date CHOL 179 08/26/2021 LDL 94 08/26/2021 HDL 41 08/26/2021 TG 219 08/26/2021 Albumin/Creat Ratio (mg/g) Date Value 08/26/2021 Not calculated The 10-year ASCVD risk score (Dianajoann MORGAN Jr., et al., 2013) is: 17.7% Values used to calculate the score: Age: 66 years Sex: Female Is Non- : No Diabetic: Yes Tobacco smoker: No Systolic Blood Pressure: 148 mmHg Is BP treated: Yes HDL Cholesterol: 41 mg/dL Total Cholesterol: 179 mg/dL PHARMACOTHERAPY ASSESSMENT/PLAN 1.) Type 2 diabetes mellitus with diabetic polyneuropathy, with long-term current use of insulin ([facility]) - ICD9: 250.60, 357.2, V58.67, ICD10: E11.42, Z79.4 A1c is above goal of <8%. Due for recheck. CGM reveals BGs still above goal on ave though TIR has significantly improved as is now at 51%. Of note, sensor was only active 33% in past 2 weeks whichlimits data. Some hypoglycemia in PM post- dinner which was reportedly treated appropriately and resolved. Identified pt mostly only using her Humalog with her dinner. Would likely benefit from slight decrease in bolus insulin but with improved adherence. Will decrease bolus insulin by ~15% today. AM readings appear to have most elevation, will increase PM basal insulin by ~10% to aid in BG control as well. D/t concern of pt not always injecting in SQ tissue without correct pinch-up with 8 mm needles, which may lead to inconsistent insulin absorption, will have pt resume shorter, 5 mm needle size at this time. Patient has been against adjustment to U-500 insulin in past. May re-visit switch to alternative concentrated insulin such as Toujeo Max or Tresiba U-200 at future fern; TBD. Renal fxn appropriate for continued therapy. Plan: INCREASE Levemir to 78 units in the AM, 85 units in the PM Discussed need to dial evening dose as 80+5 as pen only dials up to 80 units DECREASE Humalog to 42 units TID AC meals Reviewed appropriate timing and use of this med. Pt to work on better adherence. Continue linagliptin 5 mg daily Adjust insulin pen needle size back to 31 G, 5 mm Instructed patient to continue to check BGs 3 times daily and scan FreeStyle Gabrielle 2 sensor at least every 8 hours. Again reminded to check BG via fingerprick when not wearing sensor or as indicated. Reviewed adhesive products to consider [id number] to aid in CGM wear longevity Discussed appropriate treatment of hypoglycemia with rule of 15. Pt to call office if > 1 hypoglycemic episode Recommended positive lifestyle modifications Again reminded pt to complete previously ordered A1c recheck Foot exam: due NOW Eye exam: due NOW Now that patient is following with new PCP, will pend updated pharmD consult order to this providernow FOLLOW UP PharmD follow up: 05/10/22 Medical Care at Home: 05/24/22 Patient verbalized understanding of instructions. The majority of the pharmacy visit (> 50%) was spent counseling and/or coordinating care for thepatient. [Telephonic] time was 40 minutes. Thank you, Susan Cuello PharmD documented in this encounterWright-Patterson [facility]06-16-2022 NoteHNO ID: [id number] Author: Shea Childers APRN.TOUR ACTOR Service: ? Author Type: Nurse Practitioner Type: Progress Notes Filed: 04/13/2022 5:45 PM Note Text: MEDICAL CARE AT HOME - VIRTUAL / Telephonic FOLLOW UP VISIT This visit is a phone encounter, that was conducted with patient and/or caregiver's consent, in lieu of a face to face encounter, due to Covid-19 pandemic. This patient encounter involved the screening or treatment of novel coronavirus infection (COVID-19). Video Application used during encounter (i.e. specify [employer] Video Visit, [employer], [email or web address]): not applicable SERVICE DATE: 04/13/2022 ASSESSMENT IDENTIFICATION AND INTRODUCTION Kimberly Patel is a 66 year old year old female. PLAN ASSESSMENT/PLAN: 1. Recurrent UTI (urinary tract infection) - ICD9: 599.0, ICD10: N39.0 (primary diagnosis) recurrent - Patient education for prevention given - Continue Keflex to finish, introduce yogurt probiotics in diet 2. Type 2 diabetes mellitus with diabetic polyneuropathy, with long-term current use of insulin ([facility]) - ICD9: 250.60, 357.2, V58.67, ICD10: E11.42, Z79.4 uncontrolled - Continue current medications -Patient is new to hi 3. Chronic heart failure with preserved ejection fraction (HFpEF) ([facility]) - ICD9: 428.9, ICD10: I50.32 Patient reports no size or symptoms of fluid overload -Continue current HF regimen -Discussed sodium restriction to less than 2 g per day -Discussed fluid restriction to less than 2000 cc per day -Discussed daily weight to call [facility] office 2 # gain in 24 hours or 5 # in a week. -Monitor edema and breathing to call office immediately if starting to feel short of breath or having increased swelling in feet 4. DDD (degenerative disc disease), lumbar - ICD9: 722.52, ICD10: M51.36 -Apap prn - Pregabalin Patient verbalized understanding and agreed to the plan of care. Verbalized understanding of s/sx of when to call 911 and when to call [facility]. Shea Childers FOLLOW UP ([facility] [id number]) F/U preferably 6-8 weeks, at least within 12 wks; provider: Physician or Nurse Practitioner Schedule next visit as: In Person Face to Face visit DME/Supplies Needed: No SUBJECTIVE Chief Complaint: No chief complaint on file. HISTORY OF PRESENT ILLNESS By problem, patient and/or caregiver's concerns today are: Patient unable to do [id number]. There visit by telephone. Hospital follow-up for UTI. Patient is taking Keflex currently. So far she is tolerating it. Patient states she is doing well and does not really need this visit. Admits to some back pain which is chronic, takes Tylenol as needed. Blood sugars between 70- 180. Rarely low in the 60s which she would hold insulin. No signs or symptoms associated with hypoglycemia. No respiratory concerns, on 3 L at baseline, no edema. No fever/chills, cough or sputum production, CP, SOB, diarrhea, constipation, nausea, vomiting, palpitations. Eats and sleeps good. No falls/wounds sores. No refills needed today. History obtained from medical record review as well as PATIENT. PAST MEDICAL HISTORY The patient's past medical and surgical history and active problem list were reviewed and updated as appropriate for this encounter. FAMILY HISTORY FAMILY HISTORY Problem Relation Age of Onset - Breast Cancer Mother - Diabetes Mother - Colon Cancer Father - Diabetes Father - Diabetes Sister - Heart Brother - Diabetes Brother MEDICATION REVIEW The patient's active medications were reviewed and updated as appropriate for this encounter. Medication Reconciliation done telephonically: Yes SOCIAL HISTORY Social History Social History Narrative Not on file Living Situation: single home, alone GERIATRIC REVIEW OF SYSTEMS Falls since last Provider visit? No Oxygen Oxygen liter flow: 3 l/min per nasal cannula REVIEW OF SYSTEMS Review of Systems Constitutional: Negative for activity change, appetite change, chills, fatigue, fever and unexpected weight change. HENT: Negative for congestion, hearing loss, postnasal drip, rhinorrhea, sinus pressure, sinus pain, sore throat and trouble swallowing. Eyes: Positive for visual disturbance (needs new Rx for glasses). Respiratory: Positive for cough (dry, ocasional) and shortness of breath (wtih exertion baseline). Cardiovascular: Negative for chest pain. Gastrointestinal: Negative for abdominal pain, blood in stool, constipation, diarrhea, nausea and vomiting. Genitourinary: Negative for dysuria and hematuria. Musculoskeletal: Positive for back pain and gait problem. Negative for arthralgias. Skin: Positive for rash (venous stasis ). Negative for wound. Neurological: Positive for weakness and numbness (feet). Negative for dizziness, speech difficulty and light-headedness. Psychiatric/Behavioral: Negative for agitation, behavioral problems, confusion, dysphoric mood and sleep disturbance. The patient is not (more content not included)...[facility]06-16-2022 History of Present illness Narrative* Shea Childers APRN.TOUR ACTOR - 04/13/2022 8:20 AM EDT MEDICAL CARE AT HOME - VIRTUAL / Telephonic FOLLOW UP VISIT This visit is a phone encounter, that was conducted with patient and/or caregiver's consent, in lieu of a face to face encounter, due to Covid-19 pandemic. This patient encounter involved the screening or treatment of novel coronavirus infection (COVID-19). Video Application used during encounter (i.e. specify MyChart Video Visit, FaceTime, [email or web address]): not applicable SERVICE DATE: 04/13/2022 ASSESSMENT IDENTIFICATION AND INTRODUCTION Kimberly Patel is a 66 year old year old female. PLAN ASSESSMENT/PLAN: 1. Recurrent UTI (urinary tract infection) - ICD9: 599.0, ICD10: N39.0 (primary diagnosis) recurrent - Patient education for prevention given - Continue Keflex to finish, introduce yogurt probiotics in diet 2. Type 2 diabetes mellitus with diabetic polyneuropathy, with long-term current use of insulin ([facility]) - ICD9: 250.60, 357.2, V58.67, ICD10: E11.42, Z79.4 uncontrolled - Continue current medications -Patient is new to hi 3. Chronic heart failure with preserved ejection fraction (HFpEF) ([facility]) - ICD9: 428.9, ICD10: I50.32 Patient reports no size or symptoms of fluid overload -Continue current HF regimen -Discussed sodium restriction to less than 2 g per day -Discussed fluid restriction to less than 2000 cc per day -Discussed daily weight to call [facility] office 2 # gain in 24 hours or 5 # in a week. -Monitor edema and breathing to call office immediately if starting to feel short of breath or having increased swelling in feet 4. DDD (degenerative disc disease), lumbar - ICD9: 722.52, ICD10: M51.36 -Apap prn - Pregabalin Patient verbalized understanding and agreed to the plan of care. Verbalized understanding of s/sx of when to call 911 and when to call [facility]. Shea Childers FOLLOW UP ([facility] [id number]) F/U preferably 6-8 weeks, at least within 12 wks; provider: Physician or Nurse Practitioner Schedule next visit as: In Person Face to Face visit DME/Supplies Needed: No SUBJECTIVE Chief Complaint: No chief complaint on file. HISTORY OF PRESENT ILLNESS By problem, patient and/or caregiver's concerns today are: Patient unable to do okjg-wo-goja. There visit by telephone. Hospital follow-up for UTI. Patient is taking Keflex currently. So far she is tolerating it. Patient states she is doing well and does not really need this visit. Admits to some back pain which is chronic, takes Tylenol as needed. Blood sugars between 70- 180. Rarely low in the 60s which she would hold insulin. No signs or symptoms associated with hypoglycemia. No respiratory concerns, on 3 L at baseline, no edema. No fever/chills, cough or sputum production, CP, SOB, diarrhea, constipation, nausea, vomiting, palpitations. Eats and sleeps good. No falls/wounds sores. No refills needed today. History obtained from medical record review as well as PATIENT. PAST MEDICAL HISTORY The patient's past medical and surgical history and active problem list were reviewed and updated as appropriate for this encounter. FAMILY HISTORY FAMILY HISTORY Problem Relation Age of Onset Breast Cancer Mother Diabetes Mother Colon Cancer Father Diabetes Father Diabetes Sister Heart Brother Diabetes Brother MEDICATION REVIEW The patient's active medications were reviewed and updated as appropriate for this encounter. Medication Reconciliation done telephonically: Yes SOCIAL HISTORY Social History Social History Narrative Not on file Living Situation: single home, alone GERIATRIC REVIEW OF SYSTEMS Falls since last Provider visit? No Oxygen Oxygen liter flow: 3 l/min per nasal cannula REVIEW OF SYSTEMS Review of Systems Constitutional: Negative for activity change, appetite change, chills, fatigue, fever and unexpected weight change. HENT: Negative for congestion, hearing loss, postnasal drip, rhinorrhea, sinus pressure, sinus pain, sore throat and trouble swallowing. Eyes: Positive for visual disturbance (needs new Rx for glasses). Respiratory: Positive for cough (dry, ocasional) and shortness of breath (wtih exertion baseline). Cardiovascular: Negative for chest pain. Gastrointestinal: Negative for abdominal pain, blood in stool, constipation, diarrhea, nausea and vomiting. Genitourinary: Negative for dysuria and hematuria. Musculoskeletal: Positive for back pain and gait problem. Negative for arthralgias. Skin: Positive for rash (venous stasis ). Negative for wound. Neurological: Positive for weakness and numbness (feet). Negative for dizziness, speech difficulty and light-headedness. Psychiatric/Behavioral: Negative for agitation, behavioral problems, confusion, dysphoric mood and sleep disturbance. The patient is not nervous/anxious. Pain on 0-10 scale: 2 - mild pain If pain is 4 or more or if pain is not at an acceptable level, interventions to treat pain: apap OBJECTIVE VIDEO EXAM: (if done, performed via video enabled technology) Physical Exam ANCILLARY DATA REVIEWED Most recent labs and imaging results. Counseling and Coordination of Care Counseled on disease prognosis and plan of care, Counseled on wound, ostomy, continence prognosis and plan of care and Counseled patient, family or facility staff on disease process, wound healing process, ostomy, continence A total of 14 minutes was spent providing medical care using telemedicine. SIGNATURE: Shea Childers APRN.CNP PATIENT NAME: Kimberly Patel DATE: April 13, 2022 PAGER/CONTACT #: [phone] documented in this encounterWright-Patterson [facility]06-14-2022 Miscellaneous Notes* Telephone Encounter - Nanette Hager - 04/11/2022 8:24 AM EDT Please schedule a post ed visit Nanette Hager documented in this encounterWright-Patterson [facility] Center05-31-2022 Miscellaneous Notes* Telephone Encounter - Susan Cuello RPh - 03/28/2022 10:55 AM EDT Thank you for the notification. Yes, intended to switch from Humalog U-100 to U- 200. Rx re-approved. Thank you, Susan Cuello PharmD * Telephone Encounter - India Chavarria LPN - 03/28/2022 10:45 AM EDT Giuseppe Yanez, we received a question from the pharmacy in a refill request for the humalog. Since you filled it last I thought I would send the question over to you. Rx #: [id number] Pharmacy comment: Script Clarification:DID THE MD WANT TO INCREASE THE DOSE UP TO 200U/ML FROM THE 100U/ML DOSE....THANKS. documented in this encounterWright-Patterson Medical Center05-31-2022 Miscellaneous Notes* Telephone Encounter - Emerald Lovell MA - 03/28/2022 10:51 AM EDT I have faxed the orders and the visit notes to [facility] RT. Emerald Lovell CMA * Telephone Encounter - Frankie Deng MD - 03/25/2022 3:37 PM EDT Noted completed. O2 orders submitted. Thanks. * Telephone Encounter - Clovis Alarcon MA - 03/24/2022 12:31 PM EDT Hema from respiratory called stating patient needs requalification for oxygen. She's requesting to have PCP sign and date note from 03/22 in system and new rx for oxygen. Hema [phone] option 2 Clovis Alarcon documented in this encounterWright-Patterson Medical Center05-31-2022 Miscellaneous Notes* Telephone Encounter - June Oro Ma - 03/28/2022 8:42 AM EDT The following lab order was sent via e-mail to [facility] on03/28/2022: PATIENT NAME: Kimberly Patel ADDRESS: [address] [place] [address] PHONE NUMBER: [phone] (home) [phone] (cell) DATE OF : 1955 [facility] ORDERING PROVIDER: Frankie Deng MD LAB TESTS: CBC- Diagnosis [E11.42, Z79.4] CMP - Diagnosis [E11.42, Z79.4] HgbA1C - Diagnosis [E11.42, Z79.4] Lipid panel Nonfasting - Diagnosis [E11.42, Z79.4] TSH - Diagnosis [I10] REQUESTED DATE OF COLLECTION: to be collected by 04/03 SPECIFIC SPECIMEN DRAW INFORMATION: N/A June Oro Ma documented in this encounterWright-Patterson [facility] Center05-26-2022 Miscellaneous Notes* Telephone Encounter - SAL Manuel - 03/23/2022 10:11 AM EDT Welcome Home Call: a. Date and Time: 10:11 AM 03/23/2022 b. Contact name/relationship: Kimberly caldwell.Have you been active with any Home Care company in the last 60 days? No. d. Are you interesting in initiated services with [facility]? yes (yes or no) e. Do you have any upcoming appointments in the next few days, or restrictions to your schedule? no f. We would come to see you in 24-48* from your discharge today; Are you agreeable to a visit in that time frame? Yes--Daughter has to be present so appts needs to be agreeable to her schedule. (Yes/No (if no, when would you like to be seen?)) Please keep our your medications both over the counter and prescribed out for the home care to review, your hospital discharge instructions and write down any questions you might have. Our clinicians will call you the night before or the morning of the appointment. Their # may come up restricted but they'll leave a VM for you. In case you have any questions or concerns in the meantime, our # is [phone], option 1 (need to confirm) Thank you for your time and have a great day. SAL Manuel documented in this encounterWright-Patterson Medical Center05-25-2022 NoteHNO ID: [id number] Author: Susan Cuello [facility] Service: ? Author Type: Pharmacist Type: Progress Notes Filed: 03/22/2022 1:19 PM Note Text: Primary Care Pharmacy Visit Patient consents to pharmacy consult agreement. CC (Reason for Consult):?Type 2 diabetes mellitus with diabetic polyneuropathy, with long-term current use of insulin ([facility]) - ICD9: 250.60, 357.2, V58.67, ICD10: E11.42, Z79.4 ? Goal: A1c <8% Last Collaborating Physician Visit: Dr. Meyer,?12/19/21 Kimberly Patel is a 66 year old female presenting for follow up visit by telephone. Patient consents to pharmacy collaborative practice agreement. . HPI: patient was diagnosed with?T2DM?>10 yrs ago (pt uncertain of year).?Established with pharmacist for diabetes management on 08/05/21. Last seen by pharmacy on 03/08/22 at which time: - BGs consistently elevated above goal (BG ave: 253 mg/dL, 7% time in target range) - Due to requiring >200 units insulin/day, discussed adjustment to more concentrated insulin at this time however, pt wished to discuss further with her daughter and re-visit at next fern - Increased basal and bolus insulin by ~20% INTERIM HISTORY: - 03/09/22 - pregabalin refilled as requested SUBJECTIVE: - Medical Care at home scheduled for today which will be patient's first visit with this provider - Granddaughter recently knocked off her sensor and daughter was unable to aid in application of next sensor right away which led to several days without data. Pt did not check with fingersticks during that time either - Pt had discussed with daughter about being able to know the time of her meals ahead of time in future to ensure injecting insulin timed-appropriately with food o Reports her daughter is unreliable in helping with this o Due to this, patient is uncomfortable with adjustment to U-500 insulin at this time as she does not think she would be able to take this timed-appropriately - Describes appropriate injection technique, confirmed removing insulin pen needle caps, and confirmed rotating insulin inj sites Current?DM medications:? ? linagliptin?5 mg daily ? Levemir?66?units AM; 66?units PM? Humalog?42?units?before breakfast, 42?units before lunch,?42?units before dinner? Previously?trialed DM medications: ? Sitagliptin --?changed to linagliptin ? Metformin IR --?stopped in Jan 2021 d/t diarrhea ? Jardiance ?-- stopped d/t h/o severe UTIs resulting in sepsis ? Trulicity ?-- stopped d/t severe nausea ? ? DIET: ? Meals:?2-3 meals/day (no set meals); daughter cooks for her at night; grazes in daytime ? Trying to follow diet set by HF clinic ? Daughter brings her the meals (not at set time each day) ? Recent Diet changes:?none still the same bad stuff ? Breakfast:?5-7 strawberries, coffee ? Lunch:?sandwich (egg salad, PBANDJ, tuna fish) ? Dinner:?chicken, veggies, stuffing or carbs ? Snacks:?fresh fruit (oranges, apples) - not usually at bedtime ? Beverages:?caffiene coffee (with cream; 1 cup/day), water (64 oz/day), V8 juice (once weekly), regular pepsi (1 every 2 weeks) ? Sodium Intake:?does NOT add; uses Ms. Arauz (HF sodium-free diet); does reportedly lightly salt pakistani fries infrequently ? EXERCISE:?walks around inside of house. Has difficulty walking; can stand and pivot. Uses office chair with wheels to move around the inside of house.?Reports having displaced vertebrae pushing on nerve and degenerative disk disease limiting her ability to walk. ? SOCIAL Hx: ? Tobacco:?denies ? Alcohol:?denies ? Illicits:?denies ROS: - Patient reports CP, SOB, HEAD, blurred vision, dizziness or lightheadedness o Plans to discuss with Medical Care at home doctor today. Has been unable to arrange an Ophthalmology fern d/t being able to leave her house. Reminded due for routine retinal exam. - Patient reports nausea, vomiting, diarrhea, abdominal pain o Reports her nausea has been intermittent. No recent worsening. Using her O2 and caffeine appears to help. Plans to discuss with Medical Care at home doctor today. - Patient denies symptoms of hypoglycemia (sweating, anxiety, palpitations, hunger, and tremor) - Patient denies symptoms of hyperglycemia (polyuria, polydipsia, polyphagia) - Patient denies potential medication adverse effects Past medical, family and social history reviewed and updated. ACTIVE PROBLEM LIST Diya (Obstructive Sleep Apnea) Chf (Congestive Heart Failure) ([facility]) Type 2 Diabetes Mellitus With Diabetic Polyneuropathy, With Long-Term Current Use of Insulin ([facility]) Coronary Arteriosclerosis in [place] Artery Bipolar Disorder ([facility]) Mixed Hyperlipidemia Class 3 Severe Obesity With Serious Comorbidity and Body Mass Index (Bmi) of 45.0 to 49.9 in Adult ([facility]) Chronic Respiratory Failure With Hypoxia ([facility]) Chronic Obstr (more content not included)...[facility]05-25-2022 NoteHNO ID: [id number] Author: Frankie Deng MD Service: ? Author Type: Physician Type: Progress Notes Filed: 03/25/2022 3:36 PM Note Text: MEDICAL CARE AT HOME - NEW PATIENT EVALUATION/ ANNUAL WELLNESS VISIT SERVICE DATE: 03/22/2022 ASSESSMENT IDENTIFICATION AND INTRODUCTION Kimberly Patel is a 66 year old year old female. PLACE OF SERVICE FOR THIS VISIT: Private Home (POS 12) Visit at patient's home/place of residence is medically necessary in lieu of an office because the patient is homebound, the patient needs the help of another person to leave the home, an office visit would be unduly stressful , the patient needs a walker or wheelchair to leave the home, the patient needs special transport to leave the home, the patient's mobility is severely limited and more informants are available in the home. The patient is being seen with daughter. PLAN ASSESSMENT/PLAN: 1. Type 2 diabetes mellitus with diabetic polyneuropathy, with long-term current use of insulin ([facility]) - ICD9: 250.60, 357.2, V58.67, ICD10: E11.42, Z79.4 (primary diagnosis) Uncontrolled. 07/2021 A1c 10.8. Goal is 6.5-7.0. - Continue current medications - Surveillance labs - Pharmacist is working with pt in program to adjust insulins to improve BS control. - CONSULT TO [facility] AT HOME - PREGABALIN 75 MG CAPSULE - CBC - COMP METABOLIC PANEL - HGB A1C - LIPID PANEL, NONFASTING 2. Stage 3b chronic kidney disease (HCC) - ICD9: 585.3, ICD10: N18.32 09/2021 BUN/Cr 27/1.47 eGFR 38. - Balanced hydration. Pt cannot obtain daily weights due to debility. - Monitor LE edema. Gauge diuretic use on edema. - No NSAIDs. - Renal dosing. - Vitamin D. 3. Chronic respiratory failure with hypoxia ([facility]) - ICD9: 518.83, 799.02, ICD10: J96.11 Review of 2012 spirometry shows restrictive lung disease. Suspect hypoventilation of morbid obesity contributes. - Performed oximetry to demonstrate continued need for O2. - CONSULT TO [facility] AT HOME - OXYGEN CONCENTRATOR - PORTABLE OXYGEN 4. Restrictive lung disease - ICD9: 518.89, ICD10: J98.4 Cannot obtain weight due to debility. See above. Suspect hypoventilation of morbid obesity. - Will benefit from weight loss. - OXYGEN CONCENTRATOR - PORTABLE OXYGEN 5. Chronic heart failure with preserved ejection fraction (HFpEF) ([facility]) - ICD9: 428.9, ICD10: I50.32 Mild pulm HTN likely related to restrictive lung dz. Low normal EF related to effects of prior [place]. May contribute to hypoxia and debility. - Continue HF regimen. - FUROSEMIDE 20 MG TABLET - OXYGEN CONCENTRATOR - PORTABLE OXYGEN Functional Classification NYHA Classification: NYHA Class III-Marked limitation of physical activity. Comfortable at rest. Less than ordinary activity causes fatigue, palpitation or dyspnea. ACC/AHA AF Stage: Stage C - Structural heart disease with prior or current symptoms of HF. Patient Education/Self Management CHF Education in the past 1 year: Yes CHF Care Plan Updated: Yes Ongoing Management Needs Adequate Primary Care follow up for CHF arranged? Yes (Minimum 1 visit every 6 months) Adequate Cardiology follow up for CHF care arranged? No (Minimum 1 visit every 6 months 6. Morbid obesity with BMI of 45.0-49.9, adult ([facility]) - ICD9: 278.01, V85.42, ICD10: E66.01, Z68.42 Will benefit from weight loss - Currently no home-based resource available for weight loss counseling. - OXYGEN CONCENTRATOR - PORTABLE OXYGEN 7. Recurrent UTI (urinary tract infection) - ICD9: 599.0, ICD10: N39.0 States she has no si/sx when she has UTI. - Pt tolerates cephalosporins for empirical treatment. - Informed pt to call [facility] if any suspicion of UTI so that treatment can be started LALA - Patient education for prevention given 8. Primary hypertension - ICD9: 401.9, ICD10: I10 - good control - Continue current medication(s) - Goal of BP <130/80 - TSH BLD 9. Coronary artery disease involving [place] heart without angina pectoris, unspecified vessel or lesion type - ICD9: 414.01, ICD10: I25.10 Hx of [place]. Contributor to debility. - Continue CVD event risk reduction regimen. - CONSULT TO [facility] AT HOME 10. Mixed hyperlipidemia - ICD9: 272.2, ICD10: E78.2 No recent lipid panel result available to assess treatment efficacy. - Continue current medication. - Check lipid panel. 11. DIYA (obstructive sleep apnea) - ICD9: 327.23, ICD10: G47.33 Does not tolerate mask. - Reviewed risks of no treatment. 12. Requires assistance with activities of daily living (ADL) - ICD9: V49.89, ICD10: Z74.1 Contributors, as above, include heart, lung, obesity dz. - CONSULT TO [facility] AT HOME 13. Weakness of both legs - ICD9: 729.89, ICD10: R29.898 Desuetude and OA contribute. - PT. - CONSULT TO [facility] AT HOME 14. DDD (degenerative disc disease), lumbar - ICD9: 722.52, ICD10: M51.36 Contributes to decreased mobility. Pain inhibits st (more content not included)...[facility]05-25-2022 History of Present illness Narrative* Susan Cuello, [facility] - 03/22/2022 11:00 AM EDT Images from the original note were not included. Primary Care Pharmacy Visit Patient consents to pharmacy consult agreement. CC (Reason for Consult): Type 2 diabetes mellitus with diabetic polyneuropathy, with long-term current use of insulin (HCC) - ICD9: 250.60, 357.2, V58.67, ICD10: E11.42, Z79.4 Goal: A1c <8% Last Collaborating Physician Visit: Dr. Meyer, 12/19/21 Kimberly Patel is a 66 year old female presenting for follow up visit by telephone. Patient consentsto pharmacy collaborative practice agreement. . HPI: patient was diagnosed with T2DM >10 yrs ago (pt uncertain of year). Established with pharmacist for diabetes management on 08/05/21. Last seen by pharmacy on 03/08/22 at which time: BGs consistently elevated above goal (BG ave: 253 mg/dL, 7% time in target range) Due to requiring >200 units insulin/day, discussed adjustment to more concentrated insulin at this time however, pt wished to discuss further with her daughter and re-visit at next fern Increased basal and bolus insulin by ~20% INTERIM HISTORY: 03/09/22 - pregabalin refilled as requested SUBJECTIVE: Medical Care at home scheduled for today which will be patient's first visit with this provider Granddaughter recently knocked off her sensor and daughter was unable to aid in application of nextsensor right away which led to several days without data. Pt did not check with fingersticks duringthat time either Pt had discussed with daughter about being able to know the time of her meals ahead of time in future to ensure injecting insulin timed-appropriately with food o Reports her daughter is unreliable in helping with this o Due to this, patient is uncomfortable with adjustment to U-500 insulin at this time as she does not think she would be able to take this timed-appropriately Describes appropriate injection technique, confirmed removing insulin pen needle caps, and confirmed rotating insulin inj sites Current DM medications: linagliptin 5 mg daily Levemir 66 units AM; 66 units PM Humalog 42 units before breakfast, 42 units before lunch, 42 units before dinner Previously trialed DM medications: Sitagliptin -- changed to linagliptin Metformin IR -- stopped in Jan 2021 d/t diarrhea Jardiance -- stopped d/t h/o severe UTIs resulting in sepsis Trulicity -- stopped d/t severe nausea DIET: Meals: 2-3 meals/day (no set meals); daughter cooks for her at night; grazes in daytime ? Trying to follow diet set by HF clinic ? Daughter brings her the meals (not at set time each day) Recent Diet changes: none still the same bad stuff Breakfast: 5-7 strawberries, coffee Lunch: sandwich (egg salad, PB&J, tuna fish) Dinner: chicken, veggies, stuffing or carbs Snacks: fresh fruit (oranges, apples) - not usually at bedtime Beverages: caffiene coffee (with cream; 1 cup/day), water (64 oz/day), V8 juice (once weekly), regular pepsi (1 every 2 weeks) Sodium Intake: does NOT add; uses Ms. Arauz (HF sodium-free diet); does reportedly lightly salt pakistani fries infrequently EXERCISE: walks around inside of house. Has difficulty walking; can stand and pivot. Uses office chair with wheels to move around the inside of house. Reports having displaced vertebrae pushing on nerve and degenerative disk disease limiting her ability to walk. SOCIAL Hx: Tobacco: denies Alcohol: denies Illicits: denies ROS: Patient reports CP, SOB, HEAD, blurred vision, dizziness or lightheadedness o Plans to discuss with Medical Care at home doctor today. Has been unable to arrange an Ophthalmology fern d/t being able to leave her house. Reminded due for routine retinal exam. Patient reports nausea, vomiting, diarrhea, abdominal pain o Reports her nausea has been intermittent. No recent worsening. Using her O2 and caffeine appears to help. Plans to discuss with Medical Care at home doctor today. Patient denies symptoms of hypoglycemia (sweating, anxiety, palpitations, hunger, and tremor) Patient denies symptoms of hyperglycemia (polyuria, polydipsia, polyphagia) Patient denies potential medication adverse effects Past medical, family and social history reviewed and updated. ACTIVE PROBLEM LIST Diya (Obstructive Sleep Apnea) Chf (Congestive Heart Failure) ([facility]) Type 2 Diabetes Mellitus With Diabetic Polyneuropathy, With Long-Term Current Use of Insulin ([facility]) Coronary Arteriosclerosis in [place] Artery Bipolar Disorder ([facility]) Mixed Hyperlipidemia Class 3 Severe Obesity With Serious Comorbidity and Body Mass Index (Bmi) of 45.0 to 49.9 in Adult ([facility]) Chronic Respiratory Failure With Hypoxia ([facility]) Chronic Obstructive Pulmonary Disease ([facility]) Physical Debility Recurrent Uti (Urinary Tract Infection) Primary Hypertension Stage 3b Chronic Kidney Disease ([facility]) Microalbuminuria PAST MEDICAL HISTORY Diagnosis Date Asthma CAD (coronary artery disease) s/p stent. last one >5 years ago CHF (congestive heart failure) ([facility]) COPD (chronic obstructive pulmonary disease) ([facility]) DM2 (diabetes mellitus, type 2) ([facility]) HTN (hypertension) Mixed hyperlipidemia Pneumonia due to COVID-19 virus 10/13/2020 ALLERGIES Allergen Reactions Dilaudid [Hydromorp* Vomiting Jardiance [Empaglif* Other: See Comments UTI Metformin Diarrhea Morphine Vomiting Ondansetron Unknown Penicillins Rash Trulicity [Dulaglut* GI Upset Nausea/Vomiting MEDICATIONS/SUPPLIES: Pill bottles are not present. Adherence: denies missed doses. Organization System: [facility] Pill-pack for all oral meds (Divvy-Dose) Does the patient have diabetes supplies: Yes ? CGM = FreeStyle Gabrielle 2; has mobile fern & reader device (via [employer]; $0 co-pay) In current transition to new CGM supply company --> [employer]... ? Glucometer = One touch ultra 2 ? Lancing Device = [facility] ? Pen needles = BD uf micropen needles 5 mm, 32 gauge (previously had 6 mm size) Pharmacy: [id number] [place] [address] - [address] - [phone] ? Divvy-Dose for maintenance meds ? [facility] and emergent / short term meds Rx coverage: Payor: [facility] MEDICARE / Plan: [facility] DUAL COMPLETE HMO SNP / Product Type: Medicare / Medication Affordability: No cost concerns at this time Medication List Medication Directions Comments Action/Plan albuterol (PROVENTIL) 2.5 mg /3 mL (0.083 %) nebulizer solution Use 3 mL via nebulizer every 4 hours as needed for wheezing/shortness of breath. albuterol HFA (PROVENTIL HFA, VENTOLIN HFA) 90 mcg/actuation inhaler Inhale 2 Puffs as instructed every 4 hours as needed for wheezing/shortness of breath. aspirin, enteric coated (ASPIRIN LOW DOSE) 81 mg EC tablet Take 81 mg by mouth once daily. atorvastatin (LIPITOR) 80 mg tablet Take 1 tablet by mouth every day ezetimibe (ZETIA) 10 mg tablet TAKE 1 TABLET BY MOUTH EVERY DAY flash glucose scanning reader (FREESTYLE GABRIELLE 2 READER) 1 Each. Use as directed to check blood sugars 3 times daily. Scan FreeStyle Gabrielle 2 sensors at least every 8 hours. flash glucose sensor (FREESTYLE GABRIELLE 2 SENSOR) kit 2 Each. Use as directed to check blood sugars 3times daily. Scan FreeStyle Gabrielle 2 sensors at least every 8 hours. Replace sensor every 14 days. confirmed fluticasone-vilanterol (BREO ELLIPTA) 200-25 mcg/dose inhaler Inhale 1 Inhalation as instructed once daily. Discontinued: 03/21/2022 10:34 AM furosemide (LASIX) 20 mg tablet Take 1 tablet by mouth once daily. HYDROcodone-Acetaminophen (NORCO) 7.5-325 mg per tablet Take 1 tablet by mouth once daily as neededfor pain. insulin detemir U-100 (LEVEMIR FLEXTOUCH U-100 INSULIN) 100 unit/mL (3 mL) injection pen Inject 66 units subcutaneously twice daily confirmed insulin lispro (HUMALOG KWIKPEN INSULIN) 100 unit/mL Inject 42 units subcutaneously before breakfast, 42 units subcutaneously before lunch, 42 units subcutaneously before dinner. Administer this within 15 minutes before your meals or immediately after your meals. confirmed isosorbide mononitrate ER (IMDUR) 30 mg 24 hr tablet Take 1 tablet by mouth once daily. lancets 33 gauge None Entered Lancets lancets Use as directed to check blood sugar 3 times daily, insulin: yes, E11.9 Lancing Device (LANCING DEVICE WITH LANCETS) misc Use as directed to check blood sugar 3 times daily, insulin: yes, E11.9 linaGLIPtin (TRADJENTA) 5 mg tab Take 1 tablet by mouth once daily. confirmed losartan (COZAAR) 50 mg tablet Take 1 tablet by mouth every day metoprolol succinate ER (TOPROL XL) 25 mg 24 hr tablet Take 1 tablet by mouth once daily. mupirocin (BACTROBAN) 2 % ointment as needed. nitroglycerin sublingual (NITROQUICK) 0.4 mg SL tablet Dissolve 1 tablet under the tongue as neededfor chest pain. If no pain relief call 911. omeprazole (PRILOSEC) 20 mg capsule Take 1 capsule by mouth once daily. pen needle, diabetic (COMFORT EZ PEN NEEDLES) 32 gauge x 3/16 ndle Use as directed to inject insulin 5 times daily as directed. insulin: yes, E11.42 polyethylene glycol 3350 (MIRALAX, GLYCOLAX) 17 gram packet Take 1 Packet by mouth once daily as needed (constipation). pregabalin (LYRICA) 75 mg capsule Take 1 capsule by mouth twice daily for 14 days. ranolazine SR (RANEXA) 1,000 mg tab ER 12 hr Take 1,000 mg by mouth twice daily. WALKER ROLLATOR SEAT WITH 6 WHEELS - RED Walker rollator with seat Rx meds not listed in EPIC: No OTCs: No Herbals/Supplements: No Renally dosed appropriately? Yes Drug-drug interactions: none identified On ZAHIRA/ARB: yes On Statin: yes GLYCEMIC CONTROL: Glucometer/CGM present at visit: Yes; Blue[employer]ic 2 info shared remotely Summary of CGM Findings: CGM was only active 24% of the time in the past 2 weeks CGM recording is adequate for interpretation; glucose variability: 24.2% (goal <36%) Average glucose is 285 mg/dL Frequency of hypoglycemia: o Low (54-69 mg/dL): 0% o Very low (<54 mg/dL): 0% o Nocturnal hypoglycemia? - No Frequency of hyperglycemic episodes: o High (181-250 mg/dL): 30% o Very High (>250 mg/dL): 66% Time in target range (70-180 mg/dL): 4% Hypoglycemia: denies Hypoglycemia awareness: yes How corrected: OJ; previously reviewed rule of 15 VITALS: There were no vitals taken for this visit. Last 3 Encounter BP Readings: Date: BP: 09/19/2021 118/56 08/26/2021 104/64 07/30/2021 118/62 Wt: 127 kg (280 lb) BMI: 46.59 kg/(m^2) LABS Lab Results Component Value Date HBA1C 10.8 08/26/2021 HBA1C 10.5 11/28/2020 HBA1C 12.1 10/14/2020 CMP: Glucose 244 08/26/2021 BUN 25 08/26/2021 Creatinine 1.26 08/26/2021 Sodium 138 08/26/2021 Potassium 4.1 08/26/2021 Albumin 4.2 08/26/2021 Calcium, Total 9.1 08/26/2021 AST 16 08/26/2021 ALT 15 08/26/2021 CrCl cannot be calculated (Patient's most recent lab result is older than the maximum 180 days allowed.). eGFR-All Other Races (.) Date Value 08/26/2021 43 CrCl based on below BMP: 50.8 mL/min (using Scr 1.5 mg/dL, Ht 65 in, AdjBW of 85 kg) Lab Results Component Value Date CHOL 179 08/26/2021 LDL 94 08/26/2021 HDL 41 08/26/2021 TG 219 08/26/2021 Albumin/Creat Ratio (mg/g) Date Value 08/26/2021 Not calculated The 10-year ASCVD risk score (Rutherfordjoann MORGAN Jr., et al., 2013) is: 11.6% Values used to calculate the score: Age: 66 years Sex: Female Is Non- : No Diabetic: Yes Tobacco smoker: No Systolic Blood Pressure: 118 mmHg Is BP treated: Yes HDL Cholesterol: 41 mg/dL Total Cholesterol: 179 mg/dL PHARMACOTHERAPY ASSESSMENT/PLAN 1.) Type 2 diabetes mellitus with diabetic polyneuropathy, with long-term current use of insulin (HCC) - ICD9: 250.60, 357.2, V58.67, ICD10: E11.42, Z79.4 A1c is above goal of <8%. Due for recheck. Recent CGM data shows minimal data as was only kkzevx25% of the time in the past 2 weeks. When pt has checked her BG, these have continued to be significantly above goal. Though patient would likely benefit from switch to U-500 insulin given current insulin requirements with minimal BG control, she reports she would be unable to time this medication appropriately (~30 min before meals) due to having to rely on her daugther and therefore prefers to continue current regimen. Will increase basal and bolus insulin by ~20% again today to aid in glycemic control. D/t current bolus insulin req, will send for U-200 volume pens to last patient longer aswell. Will also switch patient to longer insulin pen needle size to see if this aids with insulin absorption as pt of higher BMI and SQ tissue in abdomen. Poor diet and lack of physical activity likely also contributing to poor DM control which was also discussed at length. Renal fxn appropriate for continued therapy. Plan: INCREASE Levemir to 78 units BID INCREASE Humalog to 50 units TID AC meals (also switching from U-100 to U-200 volume pens) Continue linagliptin 5 mg daily Adjust insulin pen needle size to 8 mm Instructed patient to continue to check BGs 3 times daily and scan FreeStyle Gabrielle 2 sensor at least every 8 hours. Again reminded to check BG via fingerprick when not wearing sensor. Pt to call office if > 1 hypoglycemic episode Recommended positive lifestyle modifications Again reminded pt to complete previously ordered A1c recheck Foot exam: due NOW Eye exam: due NOW FOLLOW UP PharmD follow up: 04/14/22 PCP follow up: not yet scheduled Medical Care at Home: today, 03/22/22 Patient verbalized understanding of instructions. The majority of the pharmacy visit (> 50%) was spent counseling and/or coordinating care for thepatient. [Telephonic] time was 30 minutes. Thank you, Susan Cuello, PharmRizwana documented in this encounterW[facility] History of Present illness Narrative* Frankie Deng MD - 03/22/2022 10:22 AM EDT MEDICAL CARE AT HOME - NEW PATIENT EVALUATION/ ANNUAL WELLNESS VISIT SERVICE DATE: 03/22/2022 ASSESSMENT IDENTIFICATION AND INTRODUCTION Kimberly Patel is a 66 year old year old female. PLACE OF SERVICE FOR THIS VISIT: Private Home (POS 12) Visit at patient's home/place of residence is medically necessary in lieu of an office because the patient is homebound, the patient needs the help of another person to leave the home, an office visit would be unduly stressful , the patient needs a walker or wheelchair to leave the home, the patient needs special transport to leave the home, the patient's mobility is severely limited and more informants are available in the home. The patient is being seen with daughter. PLAN ASSESSMENT/PLAN: 1. Type 2 diabetes mellitus with diabetic polyneuropathy, with long-term current use of insulin (HCC) - ICD9: 250.60, 357.2, V58.67, ICD10: E11.42, Z79.4 (primary diagnosis) Uncontrolled. 07/2021 A1c 10.8. Goal is 6.5-7.0. - Continue current medications - Surveillance labs - Pharmacist is working with pt in program to adjust insulins to improve BS control. - CONSULT TO [facility] AT HOME - PREGABALIN 75 MG CAPSULE - CBC - COMP METABOLIC PANEL - HGB A1C - LIPID PANEL, NONFASTING 2. Stage 3b chronic kidney disease (HCC) - ICD9: 585.3, ICD10: N18.32 09/2021 BUN/Cr 27/1.47 eGFR 38. - Balanced hydration. Pt cannot obtain daily weights due to debility. - Monitor LE edema. Gauge diuretic use on edema. - No NSAIDs. - Renal dosing. - Vitamin D. 3. Chronic respiratory failure with hypoxia (HCC) - ICD9: 518.83, 799.02, ICD10: J96.11 Review of 2012 spirometry shows restrictive lung disease. Suspect hypoventilation of morbid obesitycontributes. - Performed oximetry to demonstrate continued need for O2. - CONSULT TO [facility] AT HOME - OXYGEN CONCENTRATOR - PORTABLE OXYGEN 4. Restrictive lung disease - ICD9: 518.89, ICD10: J98.4 Cannot obtain weight due to debility. See above. Suspect hypoventilation of morbid obesity. - Will benefit from weight loss. - OXYGEN CONCENTRATOR - PORTABLE OXYGEN 5. Chronic heart failure with preserved ejection fraction (HFpEF) ([facility]) - ICD9: 428.9, ICD10: I50.32 Mild pulm HTN likely related to restrictive lung dz. Low normal EF related to effects of prior [place]. May contribute to hypoxia and debility. - Continue HF regimen. - FUROSEMIDE 20 MG TABLET - OXYGEN CONCENTRATOR - PORTABLE OXYGEN Functional Classification NYHA Classification: NYHA Class III-Marked limitation of physical activity. Comfortable at rest. Less than ordinary activity causes fatigue, palpitation or dyspnea. ACC/AHA AF Stage: Stage C - Structural heart disease with prior or current symptoms of HF. Patient Education/Self Management CHF Education in the past 1 year: Yes CHF Care Plan Updated: Yes Ongoing Management Needs Adequate Primary Care follow up for CHF arranged? Yes (Minimum 1 visit every 6 months) Adequate Cardiology follow up for CHF care arranged? No (Minimum 1 visit every 6 months 6. Morbid obesity with BMI of 45.0-49.9, adult ([facility]) - ICD9: 278.01, V85.42, ICD10: E66.01, Z68.42 Will benefit from weight loss - Currently no home-based resource available for weight loss counseling. - OXYGEN CONCENTRATOR - PORTABLE OXYGEN 7. Recurrent UTI (urinary tract infection) - ICD9: 599.0, ICD10: N39.0 States she has no si/sx when she has UTI. - Pt tolerates cephalosporins for empirical treatment. - Informed pt to call [facility] if any suspicion of UTI so that treatment can be started LALA - Patient education for prevention given 8. Primary hypertension - ICD9: 401.9, ICD10: I10 - good control - Continue current medication(s) - Goal of BP <130/80 - TSH BLD 9. Coronary artery disease involving [place] heart without angina pectoris, unspecified vessel or lesion type - ICD9: 414.01, ICD10: I25.10 Hx of [place]. Contributor to debility. - Continue CVD event risk reduction regimen. - CONSULT TO [facility] AT HOME 10. Mixed hyperlipidemia - ICD9: 272.2, ICD10: E78.2 No recent lipid panel result available to assess treatment efficacy. - Continue current medication. - Check lipid panel. 11. DIYA (obstructive sleep apnea) - ICD9: 327.23, ICD10: G47.33 Does not tolerate mask. - Reviewed risks of no treatment. 12. Requires assistance with activities of daily living (ADL) - ICD9: V49.89, ICD10: Z74.1 Contributors, as above, include heart, lung, obesity dz. - CONSULT TO [facility] AT HOME 13. Weakness of both legs - ICD9: 729.89, ICD10: R29.898 Desuetude and OA contribute. - PT. - CONSULT TO [facility] AT HOME 14. DDD (degenerative disc disease), lumbar - ICD9: 722.52, ICD10: M51.36 Contributes to decreased mobility. Pain inhibits standing and ambulation. - APAP, topicals, consider TENS. - pain management. 15. Spondylolisthesis of lumbar region - ICD9: 738.4, ICD10: M43.16 Additional contributor to back pain - see previous. 16. Trigger middle finger of right hand - ICD9: 727.03, ICD10: M65.331 - Does not significantly affect function. - Reviewed options with pt. Surgery only when sufficiently bothersome. 17. History of COVID-19 - ICD9: V12.09, ICD10: Z86.16 May have contributed to the need for supplemental O2. - O2. 18. Slow transit constipation - ICD9: 564.01, ICD10: K59.01 Current bowel regimen is sufficient. Frankie Deng Flu vaccine administered this visit? NO Previously received [place] Care Orders (for patients currently active with Home Care): Physical Therapy eval for immobility Visit billing based on time: Yes, greater than 50% of the face to face time is on counseling and/orcare coordination, total minutes 110, counseling and/or care coordination included 100. FOLLOW UP ([facility] [id number]) F/U preferably 6-8 weeks, at least within 12 wks; provider: Physician or Nurse Practitioner Schedule next visit as: In Person Face to Face visit DME/Supplies Needed: Yes Oxygen Delivery System: Nasal [place] 1. Date of most recent test result take on or before the delivery date 03/22/2022. Testing Location Home. 2. For the test result to qualify patient for Oxygen , the testing must be performed on Room Air. Date: 03/22/2022 SpO2 86% 3. Was the test result performed either with the patient in a chronic stable state, as an Outpatient or within two days prior to discharge from an inpatient facility to home? Yes 4. Which of the following conditions was the test performed? at rest 5. If testing during exercise, provide testing results for the following scenarios: At rest without O2 86% During exercise without O2 82% Sit to stand During exercise with O2 95% 6. Choose one of the following for how the oxygen is to be administered: Continuously 7. If continuous, did the Physician prescribe portable oxygen for the patient? Yes 8. If portable oxygen was ordered, is the patient mobile in the home? Yes 9. LPM ordered by the Physician 3 LPM. Est. Length of need 12 Months. (not to exceed 12 Months for initial order) Length of need is Lifetime per Medicare guidelines (unless specified) 99 months. SUBJECTIVE Chief Complaint: No chief complaint on file. HISTORY OF PRESENT ILLNESS By problem, patient and/or caregiver's concerns today are: Needs lab work. Works with Susan to adjust DM2 meds. Needs A1c. Has Gabrielle 2. Pharmacist to adjust insulin and provide supplies. MBS 200-300s. Has jason phenomenon with elevated MBS in AM. Pt septic for admission in September. Has asymptomatic UTIs. Tests periodically with Azo strips. Has HULL GRINDER starting. PT has not started. Needs PT. Needs O2 testing. Has hx of HF. Cannot stand long enough to get weights. Has recurrent LE cellulitis. Restricted to 1500 ml daily. Hx of [place] with stents. Pt has chronic back pain. Has DDD and spondylolisthesis. Pt had attended pain clinic. Had been treated with [place]. Sleep is fair. Has DIYA; cannot tolerate CPAP. Appetite is fair. Has constipation. Docusate daily and Miralax PRN. No sores or wounds. Has neuropathy to feet. Has had spirometry. History obtained from medical record review as well as PATIENT and DAUGHTER. SOCIAL HISTORY Social History Tobacco Use Smoking status: Former Smoker Types: Cigarettes Quit date: 08/2011 Years since quittin.5 Smokeless tobacco: Never Used Vaping Use Vaping Use: Never used Substance Use Topics Alcohol use: Never Drug use: Never Marital Status: Children: Yes Tobacco & Alcohol: past cigarette, >40 pack-years, quit 11 years ago and no alcohol use current or remote Recreational Drugs: No use Oxygen Home Oxygen: Oxygen in home Home Oxygen Safety Risk Assessment Patient is on oxygen and smoking materials are present in the home:Yes, Counseled that continued prescription of oxygen is based on not smoking while using oxygen. Patient is on oxygen and potential fire safety risks (candles, fireplace, gas/wood burning stove) are present in the home No Are there functioning smoke detectors in the home? Yes Informed of findings of home oxygen safety risk assessment and recommendations made: yes Education provided about causes of fire and precautions that can prevent fire- related injuries and risks for neighboring residences and buildings: yes Patient's level of comprehension of and compliance with identified risks and suggested interventions: good Oxygen liter flow: 3 l/min per nasal cannula OBJECTIVE REVIEW OF SYSTEMS Review of Systems Constitutional: Positive for activity change (cannot stand). Negative for appetite change, fatigue,fever and unexpected weight change. HENT: Positive for trouble swallowing (has regurg in AM). Negative for congestion, hearing loss, postnasal drip, rhinorrhea, sinus pressure, sinus pain and sore throat. Eyes: Positive for visual disturbance (needs new Rx for glasses). Respiratory: Positive for cough (with use of inhaler) and shortness of breath (wtih exertion). Cardiovascular: Negative for chest pain. Gastrointestinal: Positive for abdominal pain, blood in stool (hemorrhoids) and nausea (relieved wtih caffeine). Negative for constipation and diarrhea. Genitourinary: Negative for dysuria and hematuria. Musculoskeletal: Positive for back pain and gait problem. Negative for arthralgias. Skin: Positive for rash (venous stasis ). Negative for wound. Neurological: Positive for weakness and numbness (feet). Negative for dizziness, speech difficulty and light-headedness. Psychiatric/Behavioral: Positive for sleep disturbance. Negative for agitation, behavioral problems, confusion and dysphoric mood. The patient is not nervous/anxious. PHYSICAL EXAM BP 122/62 Pulse 85 Temp 37.4 C (99.4 F) Resp 18 SpO2 98% Physical Exam Constitutional: General: She is not in acute distress. Appearance: She is obese. She is ill-appearing (chronic). She is not toxic- appearing or diaphoretic. Comments: Morbid central obesity, full affect, attentive, appropriate, uses complex sentences, goodeye contact, cooperative, sitting in recliner HENT: Head: Normocephalic and atraumatic. Right Ear: External ear normal. Left Ear: External ear normal. Nose: Nose normal. No congestion or rhinorrhea. Mouth/Throat: Pharynx: Oropharynx is clear. No oropharyngeal exudate. Eyes: Extraocular Movements: Extraocular movements intact. Conjunctiva/sclera: Conjunctivae normal. Pupils: Pupils are equal, round, and reactive to light. Neck: Vascular: No carotid bruit. Cardiovascular: Rate and Rhythm: Normal rate and regular rhythm. Pulses: Normal pulses. Heart sounds: No murmur heard. Comments: Distant S1S2 Pulmonary: Effort: Pulmonary effort is normal. No respiratory distress. Breath sounds: Normal breath sounds. No wheezing, rhonchi or rales. Abdominal: General: Bowel sounds are normal. There is no distension. Palpations: Abdomen is soft. Tenderness: There is no abdominal tenderness. Musculoskeletal: Cervical back: No rigidity. Right lower leg: Edema (2+ pitting to distal legs) present. Left lower leg: Edema present. Skin: General: Skin is warm. Capillary Refill: Capillary refill takes less than 2 seconds. Findings: Rash (mild venous stasis) present. No lesion. Neurological: General: No focal deficit present. Mental Status: She is alert and oriented to person, place, and time. Cranial Nerves: No cranial nerve deficit. Motor: No weakness. Coordination: Coordination normal. Gait: Gait abnormal. Psychiatric: Mood and Affect: Mood normal. Behavior: Behavior normal. ANCILLARY DATA REVIEWED No new labs Counseling and Coordination of Care Counseled on disease prognosis and plan of care, Counseled patient, family or facility staff on disease process, wound healing process, ostomy, continence, Counseled on treatment options, Counseled on medications and side effects and Counseled on Advance Directives MEDICAL CARE AT HOME - ANNUAL WELLNESS EVALUATION PAST MEDICAL HISTORY The patient's past medical and surgical history and active problem list were reviewed and updated as appropriate for this encounter. PAST MEDICAL HISTORY Diagnosis Date Asthma CAD (coronary artery disease) s/p stent. last one >5 years ago CHF (congestive heart failure) (HCC) COPD (chronic obstructive pulmonary disease) (HCC) DM2 (diabetes mellitus, type 2) (HCC) HTN (hypertension) Mixed hyperlipidemia Pneumonia due to COVID-19 virus 10/13/2020 PAST SURGICAL HISTORY Procedure Laterality Date REMOVAL GALLBLADDER Last 4 Encounter Ht Readings: Date: Ht: 07/03/2021 165.1 cm (5' 5) 05/14/2021 165.1 cm (5' 5) 02/24/2021 165.1 cm (5' 5) 02/06/2021 165.1 cm (5' 5) Last Wt 09/19/21 : 127 kg (280 lb) 08/26/21 : 127 kg (280 lb) 07/09/21 : 127 kg (280 lb) 07/06/21 : 127.2 kg (280 lb 6.8 oz) There is no height or weight on file to calculate BMI. FAMILY HISTORY FAMILY HISTORY Problem Relation Age of Onset Breast Cancer Mother Diabetes Mother Colon Cancer Father Diabetes Father Diabetes Sister Heart Brother Diabetes Brother Health Risk Assessment: Two item screen: Do you feel depressed? no Have you lost interest in doing things? no Pain on 0-10 scale: 8 - very severe pain If pain is 4 or more or if pain is not at an acceptable level, interventions to treat pain: APAP Q5 Falls since last Provider visit? No Mobility: Walker Wheelchair- standard Smoking cessation discussed:NA Living Situation: single home, with an adult child dtr Can you get to places outside of walking distance with out help?: No Can you go shopping for groceries or clothes without someone's help?: No Can you prepare your own meals?: No Can you do your housework?: No Because of any health problems, you need the help of another person with your personal care needs such as eating, bathing, dressing, or getting around the house?: Yes Can you handle your own money without help?: Yes During the past 4 weeks, how would you rate your health in general?: Fair How have things been going for you during the past 4 weeks?: Good and bad parts about equal Are you having difficulty driving your car?: Not applicable, I do not use a car Do you always fasten your seatbelt when you are in a car?: Yes, usually How confident are you that you can control and manage most of your health problems?: Somewhat confident What is your race?: White HOME SAFETY EVALUATION Exterior and Entry: no obvious hazards, 0 exterior steps to door, 0 interior steps and secure handrail General Condition of Interior Dwelling: furniture in good repair, comfortable temperature, good airquality and telephone is functioning and accessible in an emergency Kitchen: clean running water, a variety of fresh healthy foods are observed in the cupboards and refrigerator, clean, appliances appear to be well maintained, no odor of gas, no rotting food and cabinets and appliances at an accessible height Bedroom: 1st floor bedroom, clean, good lighting, no trip hazards, accessible bathroom, access to bathroom and bedside commode Bathroom: accessible, clean, well lit, sink works, tub and shower with grab bars, floor is not slippery, tub chair, elevated toilet seat and cluttered GERIATRIC REVIEW OF SYSTEMS Activities of Daily Living Independent - Patient completes the activity by him/herself with no assistance from a helper. Setup or clean-up assistance [place] SETS UP or CLEANS UP; patient completes activity. [place] assists only prior to or following the activity. Supervision/touching assistance-[place] provides VERBAL CUES or TOUCHING/STEADYING assistance as patient completes activity. Assistance may be provided throughout the activity or intermittently. Partial/Moderate Assistance-[place] does LESS THAN HALF the effort. [place] lifts, holds or supports trunk or limbs, but provides less than half the effort. Substantial/Maximal Assistance [place] does MORE THAN HALF the effort. [place] lifts or holds trunk or limbs, but provides more than half the effort. Dependent - [place] does ALL of the effort. Patient does none of the effort to complete the task. ADL's Walking: Dependent. Yes, this meets IAH Definition for Functional Dependency Eating: Setup or clean-up assistance. Yes, this meets IAH Definition for Functional Dependency Bathing: Dependent. Yes, this meets IAH Definition for Functional Dependency Dressing: Substantial/Maximal Assistance. Yes, this meets IAH Definition for Functional Dependency Toileting: Supervision/touching assistance. Yes, this meets IAH Definition for Functional Dependency Transferring: Substantial/Maximal Assistance. Yes, this meets IAH Definition for Functional Dependency Geriatric Review of Systems: Fracture history? None Visual defects? Yes Wears glasses? Yes, needs new Rx Ears: Hearing loss? No Wears Hearing Aid(s)? No Weight loss x 6 months? No Good appetite? fair Problem chewing? No Problem swallowing? No Special Diet? Diabetic diet and Low sodium diet Nocturnal sleep habits: adequate MEDICATION REVIEW The patient's active medications were reviewed and updated as appropriate for this encounter. Medication Reconciliation done in the home:Yes Patient's present medication management Manages medications independently Uses prepackaged medications Recommended medication management Patient self administers Patient manages medications independently with pill bottles as list Patient maintains medication list Uses prepackaged medications Medications reviewed: Yes Allergies: ALLERGIES Allergen Reactions Dilaudid [Hydromorp* Vomiting Jardiance [Empaglif* Other: See Comments UTI Metformin Diarrhea Morphine Vomiting Ondansetron Unknown Penicillins Rash Trulicity [Dulaglut* GI Upset Nausea/Vomiting Advance Directives: Does not have Advance Directives DNR Status: DNR CCA, no intubation Social History Tobacco Use Smoking status: Former Smoker Types: Cigarettes Quit date: 08/2011 Years since quittin.5 Smokeless tobacco: Never Used Vaping Use Vaping Use: Never used Substance Use Topics Alcohol use: Never Drug use: Never Kimberly Patel denies regular aerobic exercise. she watches she diet for sodium, low fat and low cholesterol some of the time. List of current specialists seen: Patient Care Team: Moe Meyer MD as PCP - General (Family Practice) Maryan Rick DO as Referring (Internal Medicine) Susan Cuello RPh as Pharmacist (Primary Care) Sejal Calvin APRN.HEATHER as Referring (Family Practice) I am willing to follow Kimberly Portillo Jorge advanced directives. Functional Ability/Safety Screen Was the patient's timed Up and Go test unsteady or longer than 30 seconds? Yes [place]I [place] recalled words - Negative for cognitive impairment Family and social history reviewed/obtained and was updated/recorded as necessary. Please see chart/appropriate section of EMR for details. The following prevention plan was discussed during the office visit and provided to the patient: - Fall avoidance - Vaccines recommended COVID-19, Pneumococcal, Influenza, Shingrix at pharmacy and Tdap at pharmacy >40 minutes spent on chart review and POC development. SIGNATURE: Frankie Deng MD PATIENT NAME: Kimberly Patel DATE: March 22, 2022 PAGER/CONTACT #: [phone] documented in this encounterWright-Pat[facility]05-23-2022 Miscellaneous Notes* Telephone Encounter - Lurdes Tovar Ma - 03/20/2022 11:58 AM EDT Patient phones requesting refills as follows: Last OV 08/26/2021 Pending Prescriptions Disp Refills FUROSEMIDE 20 MG TABLET Sig: Take 1 tablet by mouth once daily. PETE: No Please review and advise. Lurdes Tovar Ma * Telephone Encounter - Agustin Rivera - 03/17/2022 4:06 PM EDT Patient has been identified by name and date of : Yes Last office visit in this department: 08/26/2021 RX INSTRUCTIONS: Patient aware RX will be sent to pharmacy. No need to notify patient. Patient phones requesting refills as follows: Pending Prescriptions Disp Refills FUROSEMIDE 20 MG TABLET Sig: Take 1 tablet by mouth once daily. PETE: No Please review and advise. Agustin Rivera documented in this encounterWright-Patterson [facility]05-12-2022 Miscellaneous Notes* Telephone Encounter - KRISTIN Louis - 03/09/2022 2:12 PM EDT [facility] is currently providing your patient with Oxygen. At this time the patient needs re-qualified for insurance coverage. The patient has an appointment scheduled with you 03/14/22. To continue providing oxygen for the patient the following is needed: A face to face visit within the last 30 days documenting a chronic lung disease, symptoms and need to continue with oxygen therapy. Oxygen testing to state- Room air at rest, Room air with exertion and Exertion while wearing oxygen. You can add the SmartText '[id number]' to your office note to meet the insurance requirements. Oxygen prescription to include- Oxygen with portability, liter flow, duration (continuous, exertion, nocturnal,) nasal cannula, NPI, date and signature. Any hand written additions to the current script need to be signed and dated. All criteria is needed within 30 days of each other, with the script being after the face to face visit. Once the above criteria is received we can continue processing your request. Thank you, [facility] [phone] fax documented in this encounterWright-Pat[facility]05-12-2022 Miscellaneous Notes* Telephone Encounter - Renee Mojica APRN.HEATHER - 03/09/2022 1:57 PM EDT 12/19/21 office note reviewed PDMP website checked and validated. All prescriptions have been APPROPRIATELY filled. No suspiciousactivity was identified. 03/09/2022 by Renee Mojica APRN.HEATHER * Telephone Encounter - Arelis Viramontes RN - 03/09/2022 10:12 AM EDT Patient states she is completely out of medication and asks if a covering provider can send in a short supply in Dr. Meyer's absence and until she is able to establish with the visiting physician on Sunday. * Telephone Encounter - Susan Cuello RPh - 03/08/2022 12:[address] Meyer, During pharmD fern today, pt requested refills on pregabalin. Last spoke with you on 12/19/21 and hasnot yet established with new PCP via [facility] (first fern scheduled for 03/14/22). A refill for this med has been pended if you agree to approve. Please check PDMP prior to refilling. Thank you, Susan Cuello PharmD documented in this encounterWright-Patterson [facility]05-11-2022 NoteHNO ID: [id number] Author: Susan Cuello RPh Service: ? Author Type: Pharmacist Type: Progress Notes Filed: 03/08/2022 1:02 PM Note Text: Primary Care Pharmacy Visit Patient consents to pharmacy consult agreement. CC (Reason for Consult):?Type 2 diabetes mellitus with diabetic polyneuropathy, with long-term current use of insulin (HCC) - ICD9: 250.60, 357.2, V58.67, ICD10: E11.42, Z79.4 ? Goal: A1c <8% Last Collaborating Physician Visit: Dr. Meyer,?12/19/21 Kimberly Patel is a 66 year old female presenting for follow up visit by telephone. Patient consents to pharmacy collaborative practice agreement. . HPI: patient was diagnosed with?T2DM?>10 yrs ago (pt uncertain of year).?Established with pharmacist for diabetes management on 08/05/21. Last seen by pharmacy on 02/15/22 at which time: - Again, no DM checks since last fern - No blind DM med changes made - Again, dicussed importance of checking BGs INTERIM HISTORY: - 02/28/22 - pt called pharmD s/p CGM sensor placement. Basal and bolus insulin increased by ~20%. SUBJECTIVE: - Granddaughter pulled her sensor off last night though her daughter has more helpful in aiding with sensor placement - Sometimes taking Humalog only 2 times daily d/t sometimes not eating breakfast - Requesting refills on pregabalin Current?DM medications:? ? linagliptin?5 mg daily ? Levemir?55?units AM; 55?units PM? Humalog?35?units?before breakfast, 35?units before lunch,?35?units before dinner? Previously?trialed DM medications: ? Sitagliptin --?changed to linagliptin ? Metformin IR --?stopped in Jan 2021 d/t diarrhea ? Jardiance ?-- stopped d/t h/o severe UTIs resulting in sepsis ? Trulicity ?-- stopped d/t severe nausea ? ? DIET: ? Meals:?2-3 meals/day (no set meals); daughter cooks for her at night; grazes in daytime ? Trying to follow diet set by HF clinic ? Mom's meals?through her insurance ? Daughter brings her the meals (not at set time each day) ? Recent Diet changes:?none ? Breakfast:?5-7 strawberries, coffee ? Lunch:?sandwich (egg salad, PBANDJ, tuna fish) ? Dinner:?chicken, veggies, stuffing or carbs ? Snacks:?fresh fruit (oranges, apples) - not usually at bedtime ? Beverages:?caffiene coffee (with cream; 1 cup/day), water (64 oz/day), V8 juice (once weekly), regular pepsi (1 every 2 weeks) ? Sodium Intake:?does NOT add; uses MsBrandi Dash (HF sodium-free diet); does reportedly lightly salt pakistani fries infrequently ? EXERCISE:?walks around inside of house. Has difficulty walking; can stand and pivot. Uses office chair with wheels to move around the inside of house.?Reports having displaced vertebrae pushing on nerve and degenerative disk disease limiting her ability to walk. ? SOCIAL Hx: ? Tobacco:?denies ? Alcohol:?denies ? Illicits:?denies ROS: - Patient denies CP, SOB, HEAD, blurred vision, dizziness or lightheadedness - Patient denies nausea, vomiting, diarrhea, abdominal pain - Patient denies symptoms of hypoglycemia (sweating, anxiety, palpitations, hunger, and tremor) - Patient denies symptoms of hyperglycemia (polyuria, polydipsia, polyphagia) - Patient denies potential medication adverse effects Past medical, family and social history reviewed and updated. ACTIVE PROBLEM LIST Diya (Obstructive Sleep Apnea) Chf (Congestive Heart Failure) ([facility]) Type 2 Diabetes Mellitus With Diabetic Polyneuropathy, With Long-Term Current Use of Insulin ([facility]) Coronary Arteriosclerosis in [place] Artery Bipolar Disorder ([facility]) Mixed Hyperlipidemia Class 3 Severe Obesity With Serious Comorbidity and Body Mass Index (Bmi) of 45.0 to 49.9 in Adult ([facility]) Chronic Respiratory Failure With Hypoxia ([facility]) Chronic Obstructive Pulmonary Disease ([facility]) Physical Debility Recurrent Uti (Urinary Tract Infection) Primary Hypertension Stage 3b Chronic Kidney Disease ([facility]) Microalbuminuria PAST MEDICAL HISTORY Diagnosis Date - Asthma - CAD (coronary artery disease) s/p stent. last one >5 years ago - CHF (congestive heart failure) ([facility]) - COPD (chronic obstructive pulmonary disease) ([facility]) - DM2 (diabetes mellitus, type 2) ([facility]) - HTN (hypertension) - Mixed hyperlipidemia - Pneumonia due to COVID-19 virus 10/13/2020 ALLERGIES Allergen Reactions - Dilaudid [Hydromorp* Vomiting - Jardiance [Empaglif* Other: See Comments UTI - Metformin Diarrhea - Morphine Vomiting - Ondansetron Unknown - Penicillins Rash - Trulicity [Dulaglut* GI Upset Nausea/Vomiting MEDICATIONS/SUPPLIES: - Pill bottles are not present. - Adherence: denies missed doses. ? Organization System:?[facility] Pill-pack for all oral meds?(Divvy-Dose) ? Does the patient have diabetes supplies:?Yes ? CGM = [employer]agenomixe 2; has mobile fern AND?reader device (via [employer]; $0 co (more content not included)...[facility] 03-08-2022 History of Present illness Narrative* Susan Kehr, [facility] - 03/08/2022 11:00 AM EDT Images from the original note were not included. Primary Care Pharmacy Visit Patient consents to pharmacy consult agreement. CC (Reason for Consult): Type 2 diabetes mellitus with diabetic polyneuropathy, with long-term current use of insulin ([facility]) - ICD9: 250.60, 357.2, V58.67, ICD10: E11.42, Z79.4 Goal: A1c <8% Last Collaborating Physician Visit: Dr. Meyer, 12/19/21 Kimberly Patel is a 66 year old female presenting for follow up visit by telephone. Patient consentsto pharmacy collaborative practice agreement. . HPI: patient was diagnosed with T2DM >10 yrs ago (pt uncertain of year). Established with pharmacist for diabetes management on 08/05/21. Last seen by pharmacy on 02/15/22 at which time: Again, no DM checks since last fern No blind DM med changes made Again, dicussed importance of checking BGs INTERIM HISTORY: 02/28/22 - pt called pharmD s/p CGM sensor placement. Basal and bolus insulin increased by ~20%. SUBJECTIVE: Granddaughter pulled her sensor off last night though her daughter has more helpful in aiding with sensor placement Sometimes taking Humalog only 2 times daily d/t sometimes not eating breakfast Requesting refills on pregabalin Current DM medications: linagliptin 5 mg daily Levemir 55 units AM; 55 units PM Humalog 35 units before breakfast, 35 units before lunch, 35 units before dinner Previously trialed DM medications: Sitagliptin -- changed to linagliptin Metformin IR -- stopped in Jan 2021 d/t diarrhea Jardiance -- stopped d/t h/o severe UTIs resulting in sepsis Trulicity -- stopped d/t severe nausea DIET: Meals: 2-3 meals/day (no set meals); daughter cooks for her at night; grazes in daytime ? Trying to follow diet set by HF clinic ? Mom's meals through her insurance ? Daughter brings her the meals (not at set time each day) Recent Diet changes: none Breakfast: 5-7 strawberries, coffee Lunch: sandwich (egg salad, PB&J, tuna fish) Dinner: chicken, veggies, stuffing or carbs Snacks: fresh fruit (oranges, apples) - not usually at bedtime Beverages: caffiene coffee (with cream; 1 cup/day), water (64 oz/day), V8 juice (once weekly), regular pepsi (1 every 2 weeks) Sodium Intake: does NOT add; uses Ms. Dash (HF sodium-free diet); does reportedly lightly salt pakistani fries infrequently EXERCISE: walks around inside of house. Has difficulty walking; can stand and pivot. Uses office chair with wheels to move around the inside of house. Reports having displaced vertebrae pushing on nerve and degenerative disk disease limiting her ability to walk. SOCIAL Hx: Tobacco: denies Alcohol: denies Illicits: denies ROS: Patient denies CP, SOB, HEAD, blurred vision, dizziness or lightheadedness Patient denies nausea, vomiting, diarrhea, abdominal pain Patient denies symptoms of hypoglycemia (sweating, anxiety, palpitations, hunger, and tremor) Patient denies symptoms of hyperglycemia (polyuria, polydipsia, polyphagia) Patient denies potential medication adverse effects Past medical, family and social history reviewed and updated. ACTIVE PROBLEM LIST Diya (Obstructive Sleep Apnea) Chf (Congestive Heart Failure) ([facility]) Type 2 Diabetes Mellitus With Diabetic Polyneuropathy, With Long-Term Current Use of Insulin ([facility]) Coronary Arteriosclerosis in [place] Artery Bipolar Disorder ([facility]) Mixed Hyperlipidemia Class 3 Severe Obesity With Serious Comorbidity and Body Mass Index (Bmi) of 45.0 to 49.9 in Adult ([facility]) Chronic Respiratory Failure With Hypoxia ([facility]) Chronic Obstructive Pulmonary Disease ([facility]) Physical Debility Recurrent Uti (Urinary Tract Infection) Primary Hypertension Stage 3b Chronic Kidney Disease ([facility]) Microalbuminuria PAST MEDICAL HISTORY Diagnosis Date Asthma CAD (coronary artery disease) s/p stent. last one >5 years ago CHF (congestive heart failure) ([facility]) COPD (chronic obstructive pulmonary disease) ([facility]) DM2 (diabetes mellitus, type 2) ([facility]) HTN (hypertension) Mixed hyperlipidemia Pneumonia due to COVID-19 virus 10/13/2020 ALLERGIES Allergen Reactions Dilaudid [Hydromorp* Vomiting Jardiance [Empaglif* Other: See Comments UTI Metformin Diarrhea Morphine Vomiting Ondansetron Unknown Penicillins Rash Trulicity [Dulaglut* GI Upset Nausea/Vomiting MEDICATIONS/SUPPLIES: Pill bottles are not present. Adherence: denies missed doses. Organization System: [place] [employer] Pill-pack for all oral meds (Divvy-Dose) Does the patient have diabetes supplies: Yes ? CGM = Metagenomixe 2; has mobile fern & reader device (via [employer]; $0 co-pay) In current transition to new CGM supply company --> [employer]... ? Glucometer = One touch ultra 2 ? Lancing Device = [facility] generic ? Pen needles = BD uf micropen needles 5 mm, 32 gauge (previously had 6 mm size) Pharmacy: [id number] [place] [address] - [address] - [phone] ? Divvy-Dose for maintenance meds ? [facility] for insulins and emergent / short term meds Rx coverage: Payor: [facility] MEDICARE / Plan: [facility] DUAL COMPLETE HMO SNP / Product Type: Medicare / Medication Affordability: No cost concerns at this time Medication List Medication Directions Comments Action/Plan albuterol (PROVENTIL) 2.5 mg /3 mL (0.083 %) nebulizer solution Use 3 mL via nebulizer every 4 hours as needed for wheezing/shortness of breath. albuterol HFA (PROVENTIL HFA, VENTOLIN HFA) 90 mcg/actuation inhaler Inhale 2 Puffs as instructed every 4 hours as needed for wheezing/shortness of breath. aspirin, enteric coated (ASPIRIN LOW DOSE) 81 mg EC tablet Take 81 mg by mouth once daily. atorvastatin (LIPITOR) 80 mg tablet Take 1 tablet by mouth every day Discontinued: 02/27/2022 1:05 PM Discontinued: 02/27/2022 1:29 PM Discontinued: 02/24/2022 12:15 PM ezetimibe (ZETIA) 10 mg tablet TAKE 1 TABLET BY MOUTH EVERY DAY flash glucose scanning reader (FREESTYLE GABRIELLE 2 READER) 1 Each. Use as directed to check blood sugars 3 times daily. Scan FreeStyle Gabrielle 2 sensors at least every 8 hours. confirmed flash glucose sensor (FREESTYLE GABRIELLE 2 SENSOR) kit 2 Each. Use as directed to check blood sugars 3times daily. Scan FreeStyle Gabrielle 2 sensors at least every 8 hours. Replace sensor every 14 days. confirmed fluticasone-vilanterol (BREO ELLIPTA) 200-25 mcg/dose inhaler Inhale 1 Inhalation as instructed once daily. furosemide (LASIX) 20 mg tablet Take 20 mg by mouth once daily. Discontinued: 02/27/2022 1:05 PM HYDROcodone-Acetaminophen (NORCO) 7.5-325 mg per tablet Take 1 tablet by mouth once daily as neededfor pain. Discontinued: 02/28/2022 4:39 PM insulin detemir U-100 (LEVEMIR FLEXTOUCH U-100 INSULIN) 100 unit/mL (3 mL) injection pen Inject 55 units subcutaneously twice daily confirmed Discontinued: 02/28/2022 4:41 PM insulin lispro (HUMALOG KWIKPEN INSULIN) 100 unit/mL Inject 35 units subcutaneously before breakfast, 35 units subcutaneously before lunch, 35 units subcutaneously before dinner. Administer this within 15 minutes before your meals or immediately after your meals. confirmed Discontinued: 02/27/2022 1:31 PM isosorbide mononitrate ER (IMDUR) 30 mg 24 hr tablet Take 1 tablet by mouth once daily. lancets 33 gauge None Entered Lancets lancets Use as directed to check blood sugar 3 times daily, insulin: yes, E11.9 Lancing Device (LANCING DEVICE WITH LANCETS) misc Use as directed to check blood sugar 3 times daily, insulin: yes, E11.9 linaGLIPtin (TRADJENTA) 5 mg tab Take 1 tablet by mouth once daily. confirmed losartan (COZAAR) 50 mg tablet Take 1 tablet by mouth every day metoprolol succinate ER (TOPROL XL) 25 mg 24 hr tablet Take 1 tablet by mouth once daily. Discontinued: 02/27/2022 1:05 PM mupirocin (BACTROBAN) 2 % ointment as needed. Discontinued: 02/27/2022 1:31 PM nitroglycerin sublingual (NITROQUICK) 0.4 mg SL tablet Dissolve 1 tablet under the tongue as neededfor chest pain. If no pain relief call 911. omeprazole (PRILOSEC) 20 mg capsule Take 1 capsule by mouth once daily. pen needle, diabetic (COMFORT EZ PEN NEEDLES) 32 gauge x 3/16 ndle Use as directed to inject insulin 5 times daily as directed. insulin: yes, E11.42 polyethylene glycol 3350 (MIRALAX, GLYCOLAX) 17 gram packet Take 1 Packet by mouth once daily as needed (constipation). pregabalin (LYRICA) 75 mg capsule Take 1 capsule by mouth twice daily for 30 days. ranolazine SR (RANEXA) 1,000 mg tab ER 12 hr Take 1,000 mg by mouth twice daily. WALKER ROLLATOR SEAT WITH 6 WHEELS - RED Walker rollator with seat Rx meds not listed in EPIC: No OTCs: No Herbals/Supplements: No Renally dosed appropriately? Yes Drug-drug interactions: none identified On ZAHIRA/ARB: yes On Statin: yes GLYCEMIC CONTROL: Glucometer/CGM present at visit: Yes; [employer] 2 info shared remotely Summary of CGM Findings: CGM recording is adequate for interpretation; glucose variability: 17.5% (goal <36%) Average glucose is 253 mg/dL Frequency of hypoglycemia: o Low (54-69 mg/dL): 0% o Very low (<54 mg/dL): 0% o Nocturnal hypoglycemia? - No Frequency of hyperglycemic episodes: o High (181-250 mg/dL): 41% o Very High (>250 mg/dL): 52% Time in target range (70-180 mg/dL): 7% Hypoglycemia: denies Hypoglycemia awareness: yes How corrected: OJ; previously reviewed rule of 15 VITALS: There were no vitals taken for this visit. Last 3 Encounter BP Readings: Date: BP: 09/19/2021 118/56 08/26/2021 104/64 07/30/2021 118/62 Wt: 127 kg (280 lb) BMI: 46.59 kg/(m^2) LABS Lab Results Component Value Date HBA1C 10.8 08/26/2021 HBA1C 10.5 11/28/2020 HBA1C 12.1 10/14/2020 CMP: Glucose 244 08/26/2021 BUN 25 08/26/2021 Creatinine 1.26 08/26/2021 Sodium 138 08/26/2021 Potassium 4.1 08/26/2021 Albumin 4.2 08/26/2021 Calcium, Total 9.1 08/26/2021 AST 16 08/26/2021 ALT 15 08/26/2021 CrCl cannot be calculated (Patient's most recent lab result is older than the maximum 180 days allowed.). eGFR-All Other Races (.) Date Value 08/26/2021 43 CrCl based on below BMP: 50.8 mL/min (using Scr 1.5 mg/dL, Ht 65 in, AdjBW of 85 kg) Lab Results Component Value Date CHOL 179 08/26/2021 LDL 94 08/26/2021 HDL 41 08/26/2021 TG 219 08/26/2021 Albumin/Creat Ratio (mg/g) Date Value 08/26/2021 Not calculated The 10-year ASCVD risk score (Diana MORGAN Jr., et al., 2013) is: 11.6% Values used to calculate the score: Age: 66 years Sex: Female Is Non- : No Diabetic: Yes Tobacco smoker: No Systolic Blood Pressure: 118 mmHg Is BP treated: Yes HDL Cholesterol: 41 mg/dL Total Cholesterol: 179 mg/dL PHARMACOTHERAPY ASSESSMENT/PLAN 1.) Type 2 diabetes mellitus with diabetic polyneuropathy, with long-term current use of insulin ([facility]) - ICD9: 250.60, 357.2, V58.67, ICD10: E11.42, Z79.4 A1c is above goal of <8%. Due for recheck. Recent CGM data shows BGs consistently elevated abovegoal. Denies any recent s/sx hypoglycemia. Due to requiring >200 units insulin/day, discussed adjustment to more concentrated insulin at this time. However, given pt's h/o not checking her BGs when not wearing a CGM sensor and relying on her daughter for timing of meals; discussed importance of being adherent to regimen at length for most effective and safe outcome. Pt wishes to discuss further with her daughter prior to switching insulins at this time and re-visit at next fern. Will instead increase basal and bolus insulin by ~20% today to aid in BG lowering. Renal fxn appropriate for continued therapy. Plan: INCREASE Levemir to 66 units BID INCREASE Humalog 42 units TID with meals Continue linagliptin 5 mg daily Instructed patient to continue to check BGs 3 times daily and scan FreeStyle Gabrielle 2 sensor at least every 8 hours. Pt to call office if > 1 hypoglycemic episode Recommended positive lifestyle modifications Again reminded pt to complete previously ordered A1c recheck Foot exam: due NOW Eye exam: due NOW 2.) Medication management - ICD9: V58.69, ICD10: Z79.899 Pt requesting refills on pregabalin. Last spoke to PCP on 12/19/21 and has not yet established with new PCP via [facility] at home (first fern scheduled for 03/14/22). Advised pt this must go through provider (will pend as requested) FOLLOW UP PharmD follow up: 03/22/22 PCP follow up: not yet scheduled [facility] Home: 03/14/22 Patient verbalized understanding of instructions. The majority of the pharmacy visit (> 50%) was spent counseling and/or coordinating care for thepatient. [Telephonic] time was 35 minutes. Thank you, Susan Cuello PharmD documented in this encounterWright-[facility]05-03-2022 Miscellaneous Notes* Telephone Encounter - Susan Cuello RPh - 02/28/2022 4:13 PM EDT Images from the original note were not included. Returned patients call as requested. Reports her daughter aided in applying her next CGM sensor. Has worn this ~3 days at this time and would like for me to review prior to next pharmD fern next week. Admits to forgetting ~2 doses of her Humalog (with lunch or dinner) per week Has had a recent increase in sweets (cake and ice cream); granddaughter's birthday recently Had a Pepsi last night though reports having very infrequently (less than 2 times per month) Will increase basal and bolus insulin by ~20% at this time to aid in BG control. Re-discussed importance of taking insulin appropriately and improve freq. Plan: INCREASE Levemir to 55 units SQ BID INCREASE Humalog to 35 units TID SQ AC meals and improve freq of use Continue linagliptin 5 mg daily Patient verbalized understanding and denied and further questions or concerns. Thank you, Susan Cuello PharmD * Telephone Encounter - Elis Hager - 02/28/2022 4:02 PM EDT Patient requesting Susan call her directly, please advise. documented in this encounterWright-Pat[facility]05-02-2022 Instructions* Patient Instructions* Deniz Silva MD - 02/27/2022 2:20 PM EDT Heart Failure What is heart failure? Heart failure (HF) means the heart is not pumping blood as well as it should. It may pump at a different speed, pump blood with less force, or pump less blood with each heartbeat. When less blood is flowing out of the heart to the body, muscles and other tissues may not get enough oxygen. The kidneys may not work as well to remove excess fluid in the form of urine. As a result, blood backs up into the blood vessels. The extra fluid seeps into the lungs or other parts of the body. Fluid in the lungs makes it hard to breathe. Fluid seeping into other parts of the body causes swelling. When there is too much fluid in the body, it puts more strain on the heart. Heart failure is one of the most common causes of heart-related illness and in the . What is the cause? A number of things can cause heart failure, such as: Narrowing or blockage in the arteries that bring blood to the heart muscle Infection of the heart Heart attack High blood pressure Heart valve problems Genetic problems with the heart muscle Alcoholism Diabetes Lung disease Problems that may worsen or trigger heart failure, especially if your heart muscle is weak, include: Severe anemia (a low level of red blood cells) An overactive or underactive thyroid gland Infection A heartbeat that is too fast or too slow Too much salt or fluid in the diet Working your body too hard with exercise or daily activities Emotional stress What are the symptoms? The symptoms of heart failure may include: Shortness of breath or trouble breathing, at first just during exercise, then with any activity, and finally even when you are resting Waking up at night with trouble breathing or being unable to lie flat in bed because of shortness of breath Coughing Swollen ankles, feet, and legs Weight gain caused by extra fluid in the body Feeling tired most of the time and not able to do your usual activities Lack of appetite and feeling sick to your stomach Feeling like your heart is racing or fluttering Lightheadedness or fainting How is it diagnosed? Your healthcare provider will ask about your symptoms and examine you. Tests may include: Chest X-ray An ECG (also called an EKG), which measures and records your heartbeat Blood or urine tests Echocardiogram, which uses sound waves (ultrasound) to see how well your heart muscle is pumping How is it treated? Heart failure can be treated and managed. The goals of treatment are: Help your heart so it doesn t have to work as hard Help your heart pump blood better Get rid of extra water in your body Your healthcare provider may prescribe medicine to relax the blood vessels and lower blood pressure. Then the heart doesn t have to work as hard. You may need to take 2 or more medicines to treat your heart failure. It may take several weeks or months to find the best treatment for you. In some cases, heart failure can get better and even be cured. For example, if it is caused by an infection, it may be cured with treatment of the infection. Heart failure due to coronary artery disease is generally not cured and most often gets worse over time. However, carefully following your treatment plan can: Slow down the worsening of heart failure and help you live longer Help prevent trips to the hospital Help you feel better and do more How can I take care of myself? If you have heart failure, there are things you can do to take care of yourself now and prevent problems in the future. Follow your treatment plan and know how to take your medicines. Work as a partner with your provider. This means having regular provider visits and following your treatment plan. Follow the directions that come with your medicine, including information about food or alcohol. Make sure you know how and when to take your medicine. Do not take more or less than you are supposed to take. Many medicines have side effects. A side effect is a symptom or problem that is caused by the medicine. Ask your healthcare provider or pharmacist what side effects your medicine may cause and what you should do if you have side effects. Ask if you should avoid some nonprescription medicines. Don t smoke, eat a healthy diet, and watch your weight and blood pressure. Quit smoking if you are a smoker. Lose weight if you are overweight and eat a healthy diet. ?Follow a low-salt (low-sodium) diet if it is recommended by your provider. Too much salt makes your body keep too much water and makes your heart have to work harder. ?Follow your healthcare provider's advice about how much liquid you should drink. ?Ask your provider if you should avoid drinking alcohol. Alcohol can weaken your heart or may worsen heart failure. Also, some of your medicines may not work well if you drink alcohol. Weigh yourself every morning after you use the bathroom but before you eat or drink anything. Weighing yourself every day helps you know if extra fluid is building up in your body. A buildup of fluidis a sign that your heart failure may be getting worse. Weight gain can let you know about fluid buildup before you start having swelling. Keep track of your weight in a diary or on the calendar. Ask your healthcare provider when you should report weight gain. Letting your provider know about weight gain when it first happens can save you a trip to the emergency room or a stay in the hospital. Also check your pulse and blood pressure every day. Learn how to take your own blood pressure or have a family member learn how to take it. Be as physically active as you can. How active you can be depends on how bad the heart failure is. A program of gentle exercise helps most people. Your provider can tell you what level of exercise is right for you. Exercise helps your heart and body get stronger. It also improves your blood flow and energy level. Don t exercise outdoors if it is very hot, cold, humid, or smoggy. Balance exercise with rest. Make sure that your activities don t make you too tired or short of breath. Take rest breaks during the day. Avoid getting very hot or cold because it may make your heart work harder. Try to lessen the stress in your life. Anxiety and anger can cause a fast heart rate and high blood pressure. If you need help with this, ask your healthcare provider. Protect yourself against infections. Get a flu shot every year. When you have heart failure, you should not get the nasal spray vaccine (FluMist). Get the pneumococcal shot. Ask your healthcare provider: How and when you will hear your test results How long it will take to recover What activities you should avoid and when you can return to your normal activities How to take care of yourself at home What symptoms or problems you should watch for and what to do if you have them Make sure you know when you should come back for a checkup. How can I help prevent heart failure? You can prevent this disease with a heart-healthy lifestyle: Eat a healthy diet and keep a healthy weight. Stay fit with the right kind of exercise for you. Decrease stress. Don t smoke. Limit your use of alcohol. Talk to your healthcare provider about your personal and family medical history and your lifestyle habits. This will help you know what you can do to lower your risk for heart failure. Developed by [employer]. Published by [employer]. Copyright 2014 [employer] and/or one of its subsidiaries. All rights reserved. documented in this encounterWright-[facility]05-02-2022 History of Present illness Narrative* Deniz Silva MD - 02/27/2022 2:06 PM EDT Images from the original note were not included. [facility] Virtual Visit EST Date: February 27, 2022 Patient: Kimberly Patel : 1955 This is a virtual health visit in lieu of in-person visit due to COVID 19 pandemic. Verbal consent was obtained from the patient prior to initiation of this visit. Telephone call between my location and the patient's location was used for this visit. Patient's name and date of were confirmed verbally. HISTORY OF PRESENT ILLNESS: Ms. Patel is a 66 year old female with a history of coronary artery disease status post prior PCI in 2010 and 2012, chronic diastolic heart failure, type 2 diabetes, COPD, hypertension, hyperlipidemia, chronic stable angina and obstructive sleep apnea not on CPAP therapy who was referred to cardiology clinic for routine follow-up. Patient was previously followed at [facility] but established care with hi in December 2020 after moving to the [facility]. Since her initial visit in December 2020, patient was hospitalized at [facility] in September 2021 with weakness and lethargy in the setting of urosepsis. She did have a prolonged hospital stay and subsequently went to rehabilitation. As a result, she has had profound lower extremity weakness and has difficulty walking. As a result, she has not been able to go to her clinic visits and instead has been doing virtual visits instead. She is in fact transitioning her primary care physician to a PCP who was able to come to the home to evaluate her. Patient initially expressed concern that she needs new cannulas and oxygen tubing for her oxygen tank. I did recommend she talk to her primary care physician in this regards as this is not something that I typically order. From a cardiac standpoint, patient reports doing fairly well. She did previously have symptoms of chronic stable angina but reports these have largely resolved since she has been on therapy with Ranexa for the last several years. She currently reports symptoms of her stable angina less than once a month. She does continue to have chronic symptoms of dyspnea on exertion and continues to use 3 L oxygen therapy. She does not currently have a scarifier operator and has held off at this time given her limited mobility and difficulty getting to her office visits. She otherwise continues to sleep chronically in a recliner. She denies any paroxysmal nocturnal dyspnea, presyncope, syncope, or palpitations. She does have chronic lower extremity edema but reports this has been fairly well controlled and at baseline. She continues to take low-dose Lasix therapy with good urinary response. She is not able to weigh herself daily as she cannot stand up long enough to do so due to her weakness and back issues. Besides her lower extremity weakness, she also has a hard time walking as she is limited due to degenerative disc disease and herniated disks in her back. She does continue to take dual antiplatelet therapy with aspirin and Plavix but does report easy bruising and bleeding. She otherwise has been very closely monitoring her fluid intake and limiting it to 64 ounces or less. She does try to limit her overall sodium intake. Her daughter does prepare most of the big meals but she does eat processed foods and snacks throughout the day. Of note, she does have a history of obstructive sleep apnea diagnosed nearly 10 years ago. She was unable to tolerate CPAP therapy at that time. She has not looked into any other treatment options since then. PAST MEDICAL HISTORY Diagnosis Date Asthma CAD (coronary artery disease) s/p stent. last one >5 years ago CHF (congestive heart failure) ([facility]) COPD [facility]chronic obstructive pulmonary disease) [facility] [facility] DM2 (diabetes mellitus, type 2) ([facility]) HTN (hypertension) Mixed hyperlipidemia Pneumonia due to COVID-19 virus 10/13/2020 PAST SURGICAL HISTORY Procedure Laterality Date REMOVAL GALLBLADDER MEDICATIONS: isosorbide mononitrate ER (IMDUR) 30 mg 24 hr tablet Take 1 tablet by mouth once daily. nitroglycerin sublingual (NITROQUICK) 0.4 mg SL tablet Dissolve 1 tablet under the tongue as neededfor chest pain. If no pain relief call 911. ezetimibe (ZETIA) 10 mg tablet TAKE 1 TABLET BY MOUTH EVERY DAY losartan (COZAAR) 50 mg tablet Take 1 tablet by mouth every day atorvastatin (LIPITOR) 80 mg tablet Take 1 tablet by mouth every day insulin detemir U-100 (LEVEMIR FLEXTOUCH U-100 INSULIN) 100 unit/mL (3 mL) injection pen Inject 46 units subcutaneously twice daily pregabalin (LYRICA) 75 mg capsule Take 1 capsule by mouth twice daily for 30 days. linaGLIPtin (TRADJENTA) 5 mg tab Take 1 tablet by mouth once daily. insulin lispro (HUMALOG KWIKPEN INSULIN) 100 unit/mL Inject 29 units subcutaneously before breakfast, 29 units subcutaneously before lunch, 29 units subcutaneously before dinner. Administer this within 15 minutes before your meals or immediately after your meals. metoprolol succinate ER (TOPROL XL) 25 mg 24 hr tablet Take 1 tablet by mouth once daily. fluticasone-vilanterol (BREO ELLIPTA) 200-25 mcg/dose inhaler Inhale 1 Inhalation as instructed once daily. lancets 33 gauge mupirocin (BACTROBAN) 2 % ointment as needed. furosemide (LASIX) 20 mg tablet Take 20 mg by mouth once daily. albuterol (PROVENTIL) 2.5 mg /3 mL (0.083 %) nebulizer solution Use 3 mL via nebulizer every 4 hours as needed for wheezing/shortness of breath. albuterol HFA (PROVENTIL HFA, VENTOLIN HFA) 90 mcg/actuation inhaler Inhale 2 Puffs as instructed every 4 hours as needed for wheezing/shortness of breath. pen needle, diabetic (COMFORT EZ PEN NEEDLES) 32 gauge x 3/16 ndle Use as directed to inject insulin 5 times daily as directed. insulin: yes, E11.42 flash glucose scanning reader (FREESTYLE GABRIELLE 2 READER) 1 Each. Use as directed to check blood sugars 3 times daily. Scan FreeStyle Gabrielle 2 sensors at least every 8 hours. flash glucose sensor (FREESTYLE GABRIELLE 2 SENSOR) kit 2 Each. Use as directed to check blood sugars 3times daily. Scan FreeStyle Gabrielle 2 sensors at least every 8 hours. Replace sensor every 14 days. omeprazole (PRILOSEC) 20 mg capsule Take 1 capsule by mouth once daily. Lancets lancets Use as directed to check blood sugar 3 times daily, insulin: yes, E11.9 Lancing Device (LANCING DEVICE WITH LANCETS) misc Use as directed to check blood sugar 3 times daily, insulin: yes, E11.9 HYDROcodone-Acetaminophen (NORCO) 7.5-325 mg per tablet Take 1 tablet by mouth once daily as neededfor pain. polyethylene glycol 3350 (MIRALAX, GLYCOLAX) 17 gram packet Take 1 Packet by mouth once daily as needed (constipation). WALKER ROLLATOR SEAT WITH 6 WHEELS - RED Walker rollator with seat aspirin, enteric coated (ASPIRIN LOW DOSE) 81 mg EC tablet Take 81 mg by mouth once daily. ranolazine SR (RANEXA) 1,000 mg tab ER 12 hr Take 1,000 mg by mouth twice daily. ALLERGIES Allergen Reactions Dilaudid [Hydromorp* Vomiting Jardiance [Empaglif* Other: See Comments UTI Metformin Diarrhea Morphine Vomiting Ondansetron Unknown Penicillins Rash Trulicity [Dulaglut* GI Upset Nausea/Vomiting SOCIAL HISTORY: Social History Tobacco Use Smoking status: Former Smoker Types: Cigarettes Quit date: 08/2011 Years since quittin.5 Smokeless tobacco: Never Used Vaping Use Vaping Use: Never used Substance Use Topics Alcohol use: Never Drug use: Never Patient reports a history of smoking a pack a day for 30 years but quit in 2010. FAMILY HISTORY Problem Relation Age of Onset Breast Cancer Mother Diabetes Mother Colon Cancer Father Diabetes Father Diabetes Sister Heart Brother Diabetes Brother REVIEW OF SYSTEMS: GENERAL: Negative for: Fever, Chills, or Night sweats RESPIRATORY: Positive for dyspnea on exertion; negative for: Cough, Blood in Sputum, Wheezing CARDIAC: Positive for chronic lower extremity edema; negative history of chest pain on exertion, orthopnea, paroxysmal nocturnal dyspnea, presyncope, syncope, or palpitations MUSCULOSKELETAL: Positive for: Muscle or joint pain, Joint swelling NEUROLOGIC/PSYCHIATRIC: Positive for: Weakness; negative for Numbness, Tingling, Vertigo HEMATOLOGICAL/LYMPHATIC: Negative for: Easy bruising , Easy bleeding OTHER: The rest of the review of systems is unremarkable and negative or non-contributory PHYSICAL EXAMINATION: No conversational dyspnea noted over the phone CARDIAC TESTING: EKG: EKG, 12/27/2020: Normal sinus rhythm. Left axis deviation. Low voltage QRS. Q waves in the inferior and anterolateral leads. Echocardiogram: TTE, 02/07/2021: Normal LV systolic function with ejection fraction 52% with mild hypokinesis of themid to distal anteroseptum and apex. No significant valve disease. TTE, 12/01/2020: Normal LV systolic function with ejection fraction 71%. Grade 1 diastolic dysfunction. OSH TTE, 05/02/2011: Mild LV systolic dysfunction with ejection fraction 40 to 45%. No significant valve disease. Stress testing: Nuclear stress test, 01/31/2021: Greater than 20% fixed perfusion defect in the LAD distribution withakinesis of the mid to distal anterior wall and apex. Ejection fraction 39%. Cardiac catheterization: OS Left Heart Catheterization, 08/21/2012: 0% in-stent restenosis in the LAD. Ejection fraction 45to 50% with hypokinesis of the distal anteroapical wall. OS Left Heart Catheterization, 05/01/2011: 80% stenosis in the proximal LAD and 100% stenosis in themid LAD status post PCI. Ejection fraction 20 to 25%. I have personally reviewed the Electrocardiogram and Laboratory Testing. ASSESSMENT: Ms. Patel is a 66 year old female with a history of coronary artery disease status postprior PCI in 2010 and 2012, chronic diastolic heart failure, type 2 diabetes, COPD, hypertension, hyperlipidemia, chronic stable angina and obstructive sleep apnea not on CPAP therapy who was referred to cardiology clinic for routine follow-up. Patient was previously followed at [facility] but established care with me in December 2020 after moving to the [facility]. PLAN AND RECOMMENDATIONS: 1. Chronic diastolic heart failure: Patient denies any current heart failure complaints and endorses NYHA class III symptoms overall although she is largely limited due to her degenerative disc disease and herniated disc along with significant lower extremity weakness since her prolonged hospitalization in September 2021. She has been compliant with her medications and has not missed any doses. She continues to report good urinary response to her Lasix therapy. She is unable to weigh herself regularly due to her lower extremity weakness and back issues as she is not able to stand on the scale long enough to assess her weight. She is following her 64 ounce fluid restriction but does continue to snack on processed foods; her daughter does otherwise prepare all of her major meals. She has otherwise established care with the heart failure clinic. She is not currently able to get any blood work as she is unable to leave the house but she is establishing with a new primary care physician in a few weeks who will be doing home visits and will be able to get routine blood work for her. 2. Coronary artery disease s/p remote PCI: I recommended patient continue on therapy with aspirin, metoprolol, losartan, Lipitor and Ranexa. Otherwise, I did recommend she could discontinue her Plavix therapy as her prior PCI was back in 2012 and she does report easy bleeding and bruising on her combination of aspirin and Plavix. I reassured her that the risk for stent thrombosis is exceedingly low 9 years out from her last PCI; furthermore, the risk for bleeding outweigh any benefits at this point especially in light of her easy bleeding issues. 3. Chronic stable angina / dyspnea on exertion: Patient reports a history of chronic stable angina ever since her last PCI procedure back in March 2013. Her chronic symptoms of angina have however been very well controlled on her current antianginal therapy with metoprolol, Imdur and Ranexa. She otherwise has had recent ischemic work-up in January 2021 revealing only fixed LAD perfusion defect without any evidence of reversible defects to suggest ischemia. 4. Hypertension: Patient's blood pressure has been well controlled on her current antihypertensive regimen. 5. Hyperlipidemia: Patient continues on high intensity statin therapy in the setting of underlying coronary disease. 6. Obstructive sleep apnea: Patient reports she was diagnosed with obstructive sleep apnea nearly adecade ago. She has not been on therapy. Currently, she is not able to leave the house to establishcare with a scarifier operator for further evaluation. Some elements of A&P were copied from note from 12/27/2020, which have been updated where appropriate, and all reflect current medical decision making from today (February 27, 2022). I spent a total of 29 minutes during this real-time, interactive virtual clinical encounter, which was conducted using virtual technology. Greater than 50% of the time was devoted to counseling and coordinating care including the review of records, pertinent lab data and studies, discussing diagnostic evaluation and workup, planned therapeutic interventions and future disposition of care. All questions from patient were answered. Deniz Silva MD documented in this encounterW[facility] Miscellaneous Notes* Telephone Encounter - Ellie Walters MA - 02/27/2022 1:57 PM EDT Per patient request I contacted [facility] which is like a pill pack pharmacy and advised them per Dr iSlva that patient is no longer needing plavix and was discontinued today and to remove from pill pack. Spoke with Viji at [facility] and she was able to remove plavix from pill package. documented in this encounterWright-[facility]05-02-2022 Nurse Note* Ellie Walters MA - 02/27/2022 11:58 AM EDT Patient has no cardiac complaints today. Ellie Walters CMA documented in this [facility]04[facility]29[facility] Miscellaneous Notes* Telephone Encounter - Renee Walters LPN - 02/24/2022 9:30 AM EDT Patient's request for medication is as follows: Pending Prescriptions Disp Refills EZETIMIBE 10 MG TABLET 90 tablet 0 Sig: TAKE 1 TABLET BY MOUTH EVERY DAY PETE: Yes Last visit 02/21/2021. Next visit 02/27/2022 phone call visit. Prescription(s) as above. Please process accordingly. Renee Walters LPN documented in this [facility]04-[facility] Miscellaneous Notes* Telephone Encounter - Lurdes Tovar Ma - 02/20/2022 1:54 PM EDT Patient phones requesting refills as follows: Pending Prescriptions Disp Refills LOSARTAN 50 MG TABLET 30 tablet 11 Sig: Take 1 tablet by mouth every day PETE: Yes ATORVASTATIN 80 MG TABLET 30 tablet 11 Sig: Take 1 tablet by mouth every day PETE: Yes Please review and advise. Lurdes Tovar Ma documented in this encounterWright-[facility]04-20-2022 NoteHNO ID: [id number] Author: Susan Cuello RPh Service: ? Author Type: Pharmacist Type: Progress Notes Filed: 02/15/2022 9:55 AM Note Text: Primary Care Pharmacy Visit Patient consents to pharmacy consult agreement. CC (Reason for Consult):?Type 2 diabetes mellitus with diabetic polyneuropathy, with long-term current use of insulin (HCC) - ICD9: 250.60, 357.2, V58.67, ICD10: E11.42, Z79.4 ? Goal: A1c <8% Last Collaborating Physician Visit: Dr. Meyer,?12/19/21 Kimberly Patel is a 66 year old female presenting for follow up visit by telephone. Patient consents to pharmacy collaborative practice agreement. . HPI: patient was diagnosed with?T2DM?>10 yrs ago (pt uncertain of year).?Established with pharmacist for diabetes management on 08/05/21. INTERIM HISTORY: Last seen by pharmacy on 01/31/22 at which time: - No DM checks since last fern - Deferred DM med changes to prevent blind adjustments - Dicussed importance of checking blood sugars SUBJECTIVE: - Her daughter has still not helped her in place a new CGM sensor on o Pt has difficulty placing sensor herself but plans to re-try this o Pt unsure of her interest in abdomen application / alt CGM: Dexcom G6; to think about this - Has not been checking her blood sugars at all - Has been working on Humalog med adherence though endorses sometimes misses ~1-2 doses per week Current?DM medications:? ? linagliptin 5 mg daily ? Levemir?46?units AM;?46?units PM? Humalog?29?units?before breakfast, 29?units before lunch,?29?units before dinner? Previously?trialed DM medications: ? Sitagliptin --?changed to linagliptin ? Metformin IR --?stopped in Jan 2021 d/t diarrhea ? Jardiance ?-- stopped d/t h/o severe UTIs resulting in sepsis ? Trulicity ?-- stopped d/t severe nausea ? ? DIET: ? Meals:?2 meals/day (no set meals); daughter cooks for her at night; grazes in daytime ? Trying to follow diet set by HF clinic ? Mom's meals?through her insurance ? Recent Diet changes:?none ? Breakfast:?5-7 strawberries, coffee ? Lunch:?sandwich (egg salad, PBANDJ, tuna fish) ? Dinner:?chicken, veggies, stuffing or carbs ? Snacks:?fresh fruit (oranges, apples) - not usually at bedtime ? Beverages:?caffiene coffee (with cream; 1 cup/day), water (64 oz/day), V8 juice (once weekly), regular pepsi (1 every 2 weeks) ? Sodium Intake:?does NOT add; uses Ms. Arauz (HF sodium-free diet); does reportedly lightly salt pakistani fries infrequently ? EXERCISE:?walks around inside of house. Has difficulty walking; can stand and pivot. Uses office chair with wheels to move around the inside of house.?Reports having displaced vertebrae pushing on nerve and degenerative disk disease limiting her ability to walk. ? SOCIAL Hx: ? Tobacco:?denies ? Alcohol:?denies ? Illicits:?denies ROS: - Patient denies CP, SOB, HEAD, blurred vision, dizziness or lightheadedness - Patient denies nausea, vomiting, diarrhea, abdominal pain - Patient denies symptoms of hypoglycemia (sweating, anxiety, palpitations, hunger, and tremor) - Patient denies symptoms of hyperglycemia (polyuria, polydipsia, polyphagia) - Patient denies potential medication adverse effects Past medical, family and social history reviewed and updated. ACTIVE PROBLEM LIST Diya (Obstructive Sleep Apnea) Chf (Congestive Heart Failure) ([facility]) Type 2 Diabetes Mellitus With Diabetic Polyneuropathy, With Long-Term Current Use of Insulin ([facility]) Coronary Arteriosclerosis in [place] Artery Bipolar Disorder ([facility]) Mixed Hyperlipidemia Class 3 Severe Obesity With Serious Comorbidity and Body Mass Index (Bmi) of 45.0 to 49.9 in Adult ([facility]) Chronic Respiratory Failure With Hypoxia ([facility]) Chronic Obstructive Pulmonary Disease ([facility]) Physical Debility Recurrent Uti (Urinary Tract Infection) Primary Hypertension Stage 3b Chronic Kidney Disease ([facility]) Microalbuminuria PAST MEDICAL HISTORY Diagnosis Date - Asthma - CAD (coronary artery disease) s/p stent. last one >5 years ago - CHF (congestive heart failure) ([facility]) - COPD (chronic obstructive pulmonary disease) ([facility]) - DM2 (diabetes mellitus, type 2) ([facility]) - HTN (hypertension) - Mixed hyperlipidemia - Pneumonia due to COVID-19 virus 10/13/2020 ALLERGIES Allergen Reactions - Dilaudid [Hydromorp* Vomiting - Jardiance [Empaglif* Other: See Comments UTI - Metformin Diarrhea - Morphine Vomiting - Ondansetron Unknown - Penicillins Rash - Trulicity [Dulaglut* GI Upset Nausea/Vomiting MEDICATIONS/SUPPLIES: - Pill bottles are not present. - Adherence: reports missed doses. o Reports missing Humalog ~1-2 times per week with a meal ? Organization System:?[facility] Pill-pack for all oral meds?(Divvy-Dose) ? Does the patient have diabetes supplies:?requesting new test strips ? CGM = Free (more content not included)...[facility]04-20-2022 History of Present illness Narrative* Susan Cuello, [facility] - 02/15/2022 9:30 AM EDT Images from the original note were not included. Primary Care Pharmacy Visit Patient consents to pharmacy consult agreement. CC (Reason for Consult): Type 2 diabetes mellitus with diabetic polyneuropathy, with long-term current use of insulin (HCC) - ICD9: 250.60, 357.2, V58.67, ICD10: E11.42, Z79.4 Goal: A1c <8% Last Collaborating Physician Visit: Dr. Meyer, 12/19/21 Kimberly Patel is a 66 year old female presenting for follow up visit by telephone. Patient consentsto pharmacy collaborative practice agreement. . HPI: patient was diagnosed with T2DM >10 yrs ago (pt uncertain of year). Established with pharmacist for diabetes management on 08/05/21. INTERIM HISTORY: Last seen by pharmacy on 01/31/22 at which time: No DM checks since last fern Deferred DM med changes to prevent blind adjustments Dicussed importance of checking blood sugars SUBJECTIVE: Her daughter has still not helped her in place a new CGM sensor on o Pt has difficulty placing sensor herself but plans to re-try this o Pt unsure of her interest in abdomen application / alt CGM: Dexcom G6; to think about this Has not been checking her blood sugars at all Has been working on Humalog med adherence though endorses sometimes misses ~1-2 doses per week Current DM medications: linagliptin 5 mg daily Levemir 46 units AM; 46 units PM Humalog 29 units before breakfast, 29 units before lunch, 29 units before dinner Previously trialed DM medications: Sitagliptin -- changed to linagliptin Metformin IR -- stopped in Jan 2021 d/t diarrhea Jardiance -- stopped d/t h/o severe UTIs resulting in sepsis Trulicity -- stopped d/t severe nausea DIET: Meals: 2 meals/day (no set meals); daughter cooks for her at night; grazes in daytime ? Trying to follow diet set by HF clinic ? Mom's meals through her insurance Recent Diet changes: none Breakfast: 5-7 strawberries, coffee Lunch: sandwich (egg salad, PB&J, tuna fish) Dinner: chicken, veggies, stuffing or carbs Snacks: fresh fruit (oranges, apples) - not usually at bedtime Beverages: caffiene coffee (with cream; 1 cup/day), water (64 oz/day), V8 juice (once weekly), regular pepsi (1 every 2 weeks) Sodium Intake: does NOT add; uses MsBrandi Arauz (HF sodium-free diet); does reportedly lightly salt pakistani fries infrequently EXERCISE: walks around inside of house. Has difficulty walking; can stand and pivot. Uses office chair with wheels to move around the inside of house. Reports having displaced vertebrae pushing on nerve and degenerative disk disease limiting her ability to walk. SOCIAL Hx: Tobacco: denies Alcohol: denies Illicits: denies ROS: Patient denies CP, SOB, HEAD, blurred vision, dizziness or lightheadedness Patient denies nausea, vomiting, diarrhea, abdominal pain Patient denies symptoms of hypoglycemia (sweating, anxiety, palpitations, hunger, and tremor) Patient denies symptoms of hyperglycemia (polyuria, polydipsia, polyphagia) Patient denies potential medication adverse effects Past medical, family and social history reviewed and updated. ACTIVE PROBLEM LIST Diya (Obstructive Sleep Apnea) Chf (Congestive Heart Failure) ([facility]) Type 2 Diabetes Mellitus With Diabetic Polyneuropathy, With Long-Term Current Use of Insulin ([facility]) Coronary Arteriosclerosis in [place] Artery Bipolar Disorder ([facility]) Mixed Hyperlipidemia Class 3 Severe Obesity With Serious Comorbidity and Body Mass Index (Bmi) of 45.0 to 49.9 in Adult ([facility]) Chronic Respiratory Failure With Hypoxia ([facility]) Chronic Obstructive Pulmonary Disease ([facility]) Physical Debility Recurrent Uti (Urinary Tract Infection) Primary Hypertension Stage 3b Chronic Kidney Disease (Hcc) Microalbuminuria PAST MEDICAL HISTORY Diagnosis Date Asthma CAD (coronary artery disease) s/p stent. last one >5 years ago CHF (congestive heart failure) (HCC) COPD (chronic obstructive pulmonary disease) (HCC) DM2 (diabetes mellitus, type 2) ([facility]) HTN (hypertension) Mixed hyperlipidemia Pneumonia due to COVID-19 virus 10/13/2020 ALLERGIES Allergen Reactions Dilaudid [Hydromorp* Vomiting Jardiance [Empaglif* Other: See Comments UTI Metformin Diarrhea Morphine Vomiting Ondansetron Unknown Penicillins Rash Trulicity [Dulaglut* GI Upset Nausea/Vomiting MEDICATIONS/SUPPLIES: Pill bottles are not present. Adherence: reports missed doses. o Reports missing Humalog ~1-2 times per week with a meal Organization System: [facility] Pill-pack for all oral meds (Divvy-Dose) Does the patient have diabetes supplies: requesting new test strips ? CGM = [employer] Gabrielle 2; has mobile fern & reader device (via [employer]; $0 co-pay) In current transition to new CGM supply company --> [employer] Supplies... ? Glucometer = One touch ultra 2 ? Lancing Device = [facility] generic ? Pen needles = BD uf micropen needles 5 mm, 32 gauge (previously had 6 mm size) Pharmacy: [id number] [place] [address] - [address] - [phone] [id number] ? Divvy-Dose for maintenance meds ? [facility] emergent / short term med[facility] Rx coverage: Payor: [facility] MEDICARE / Plan: [facility] DUAL COMPLETE HMO SNP / Product Type: Medicare / Medication Affordability: No cost concerns at this time Medication List Medication Directions Comments Action/Plan albuterol (PROVENTIL) 2.5 mg /3 mL (0.083 %) nebulizer solution Use 3 mL via nebulizer every 4 hours as needed for wheezing/shortness of breath. albuterol HFA (PROVENTIL HFA, VENTOLIN HFA) 90 mcg/actuation inhaler Inhale 2 Puffs as instructed every 4 hours as needed for wheezing/shortness of breath. aspirin, enteric coated (ASPIRIN LOW DOSE) 81 mg EC tablet Take 81 mg by mouth once daily. atorvastatin (LIPITOR) 80 mg tablet Take 1 tablet by mouth once daily. clopidogrel (PLAVIX) 75 mg tablet TAKE 1 TABLET BY MOUTH EVERY DAY ezetimibe (ZETIA) 10 mg tablet TAKE 1 TABLET BY MOUTH EVERY DAY flash glucose scanning reader (FREESTYLE GABRIELLE 2 READER) 1 Each. Use as directed to check blood sugars 3 times daily. Scan FreeStyle Gabrielle 2 sensors at least every 8 hours. confirmed flash glucose sensor (FREESTYLE GABRIELLE 2 SENSOR) kit 2 Each. Use as directed to check blood sugars 3times daily. Scan FreeStyle Gabrielle 2 sensors at least every 8 hours. Replace sensor every 14 days. confirmed fluticasone-vilanterol (BREO ELLIPTA) 200-25 mcg/dose inhaler Inhale 1 Inhalation as instructed once daily. furosemide (LASIX) 20 mg tablet None Entered GAS RELIEF, SIMETHICONE, 80 mg chewable tablet None Entered Patient not taking: Reported on 01/18/2022 HYDROcodone-Acetaminophen (NORCO) 7.5-325 mg per tablet Take 1 tablet by mouth once daily as neededfor pain. insulin detemir U-100 (LEVEMIR FLEXTOUCH U-100 INSULIN) 100 unit/mL (3 mL) injection pen Inject 46 units subcutaneously twice daily confirmed insulin lispro (HUMALOG KWIKPEN INSULIN) 100 unit/mL Inject 29 units subcutaneously before breakfast, 29 units subcutaneously before lunch, 29 units subcutaneously before dinner. Administer this within 15 minutes before your meals or immediately after your meals. confirmed isosorbide dinitrate (ISORDIL, SORBITRATE) 30 mg tablet None Entered Patient not taking: Reported on 01/18/2022 No longer taking Removed from med list isosorbide mononitrate ER (IMDUR) 30 mg 24 hr tablet Take 1 tablet by mouth once daily. confirmed lancets 33 gauge None Entered Lancets lancets Use as directed to check blood sugar 3 times daily, insulin: yes, E11.9 Lancing Device (LANCING DEVICE WITH LANCETS) misc Use as directed to check blood sugar 3 times daily, insulin: yes, E11.9 linaGLIPtin (TRADJENTA) 5 mg tab Take 1 tablet by mouth once daily. confirmed losartan (COZAAR) 50 mg tablet Take 1 tablet by mouth once daily. metoprolol succinate ER (TOPROL XL) 25 mg 24 hr tablet Take 1 tablet by mouth once daily. Pkuytvsmavqod-Hfnlavsj-Btgdde (MULTIVITAMIN 50 PLUS) tab Take 1 tablet by mouth once daily. mupirocin (BACTROBAN) 2 % ointment as needed. nitroglycerin sublingual (NITROQUICK) 0.4 mg SL tablet Dissolve 1 tablet under the tongue as neededfor Chest Pain. If no pain relief call 911. omeprazole (PRILOSEC) 20 mg capsule Take 1 capsule by mouth once daily. pen needle, diabetic (COMFORT EZ PEN NEEDLES) 32 gauge x 3/16 ndle Use as directed to inject insulin 5 times daily as directed. insulin: yes, E11.42 polyethylene glycol 3350 (MIRALAX, GLYCOLAX) 17 gram packet Take 1 Packet by mouth once daily as needed (constipation). pregabalin (LYRICA) 75 mg capsule Take 1 capsule by mouth twice daily for 30 days. ranolazine ER (RANEXA) 500 mg 12 hr tablet None Entered Patient not taking: Reported on 01/18/2022 No longer taking Removed from med list ranolazine SR (RANEXA) 1,000 mg tab ER 12 hr Take 1,000 mg by mouth twice daily. confirmed WALKER ROLLATOR SEAT WITH 6 WHEELS - RED Walker rollator with seat Rx meds not listed in EPIC: No OTCs: No Herbals/Supplements: No Renally dosed appropriately? Yes Drug-drug interactions: 1 identified Clopidogrel + omeprazole = concurrent use of esomeprazole, omeprazole, or cimetidine may result in decreased clopidogrel effectiveness, resulting in increased risk of adverse cardiac events. - No action required at this time. Following with Cardio. On ZAHIRA/ARB: yes On Statin: yes GLYCEMIC CONTROL: Glucometer/CGM present at visit: No SMBG s: Has not checked any BGs since last fern Hypoglycemia: denies Hypoglycemia awareness: yes How corrected: OJ; previously reviewed rule of 15 VITALS: There were no vitals taken for this visit. Last 3 Encounter BP Readings: Date: BP: 09/19/2021 118/56 08/26/2021 104/64 07/30/2021 118/62 Wt: 127 kg (280 lb) BMI: 46.59 kg/(m^2) LABS Lab Results Component Value Date HBA1C 10.8 08/26/2021 HBA1C 10.5 11/28/2020 HBA1C 12.1 10/14/2020 CMP: Glucose 244 08/26/2021 BUN 25 08/26/2021 Creatinine 1.26 08/26/2021 Sodium 138 08/26/2021 Potassium 4.1 08/26/2021 Albumin 4.2 08/26/2021 Calcium, Total 9.1 08/26/2021 AST 16 08/26/2021 ALT 15 08/26/2021 CrCl cannot be calculated (Unknown ideal weight.). eGFR-All Other Races (.) Date Value 08/26/2021 43 CrCl based on below BMP: 50.8 mL/min (using Scr 1.5 mg/dL, Ht 65 in, AdjBW of 85 kg) Lab Results Component Value Date CHOL 179 08/26/2021 LDL 94 08/26/2021 HDL 41 08/26/2021 TG 219 08/26/2021 Albumin/Creat Ratio (mg/g) Date Value 08/26/2021 Not calculated The 10-year ASCVD risk score (Diana MORGAN Jr., et al., 2013) is: 11.6% Values used to calculate the score: Age: 66 years Sex: Female Is Non- : No Diabetic: Yes Tobacco smoker: No Systolic Blood Pressure: 118 mmHg Is BP treated: Yes HDL Cholesterol: 41 mg/dL Total Cholesterol: 179 mg/dL PHARMACOTHERAPY ASSESSMENT/PLAN 1.) Type 2 diabetes mellitus with diabetic polyneuropathy, with long-term current use of insulin (HCC) - ICD9: 250.60, 357.2, V58.67, ICD10: E11.42, Z79.4 A1c is above goal of <8%. Due for recheck. Again, no DM checks since last fern. Will not make anyDM med changes again today to prevent blind adjustments. Denies any recent s/sx hypoglycemia. Again, dicussed importance of checking BGs. Pt with CGM though difficulty with self-applying this to her arm and reports her daughter will not assist her with this. Discussed consideration of alternative CGM that allows abdomen application instead though pt would like to think this over further and re-attempt self-application of current CGM. Renal fxn appropriate for continued therapy. Plan: No DM med changes today: Continue linagliptin 5 mg daily Continue Levemir 46 units AM; 46 units PM (refills sent) Continue Humalog 29 units before breakfast, 29 units before lunch, 29 units before dinner Instructed patient to RESUME checking BGs at least 3 times daily Refills sent for test strips as requested Pt to have her daughter or provider at upcoming home visit assist with CGM sensor application if able Pt to think about if she would like to try to proceed with Dexcom G6 CGM attainment of alternative abdomen application Pt to call office if > 1 hypoglycemic episode Recommended positive lifestyle modifications including portion control, low-carb diet, and as much physical activity as able Again reminded pt to complete previously ordered A1c recheck Foot exam: due NOW Eye exam: due NOW FOLLOW UP PharmD follow up: 03/08/22 PCP follow up: not yet scheduled Medical Care at Home: 02/22/22 Patient verbalized understanding of instructions. The majority of the pharmacy visit (> 50%) was spent counseling and/or coordinating care for thepatient. [Telephonic] time was 15 minutes. Thank you, Susan Cuello PharmD documented in this encounterWright-Patterson [facility]04-05-[facility]22 NoteHNO ID: [id number] Author: Susan Cuello RPh Service: ? Author Type: Pharmacist Type: Progress Notes Filed: 01/31/2022 4:46 PM Note Text: Primary Care Pharmacy Visit Patient consents to pharmacy consult agreement. CC (Reason for Consult):?Type 2 diabetes mellitus with diabetic polyneuropathy, with long-term current use of insulin (HCC) - ICD9: 250.60, 357.2, V58.67, ICD10: E11.42, Z79.4 ? Goal: A1c <8% Last Collaborating Physician Visit: Dr. Meyer,?12/19/21 Kimberly Patel is a 66 year old female presenting for follow up visit by telephone. Patient consents to pharmacy collaborative practice agreement. . HPI: patient was diagnosed with?T2DM?>10 yrs ago (pt uncertain of year).?Established with pharmacist for diabetes management on 08/05/21. Last seen by pharmacy on 01/13/22 at which time: - Limited SMBGs available today though above goal for those readings reported - Increased basal insulin by ~15% - Pt to resume checking BGs regularly INTERIM HISTORY: - 01/23/22 - pt called to advise her insurance has not yet received info from [employer] re: CGM status. Chart notes were previously sent. Pt advised to f/u with [employer]. - 01/18/22 - Cardio nurse visit - 01/17/22 - MATHEMATICS TECHNICIAN advised pharmD that appeal was done for pts novolog and approved until 2021. SUBJECTIVE: - Reports her CGM sensors were approved and [employer] mailed these o Has not yet been able to have her daughter help her with these yet o Can not fully reach the back of her upper arm due to limited range of motion - Reports has 1 pen of Basaglar left in supply before she will be transitioning to Levemir - Open to considering to set a phone alarm to aid in Humalog adherence o Trying to associate meal with meal time insulin more frequently Current?DM medications:? ? linagliptin 5 mg daily ? Levemir?46?units AM;?46?units PM? -- pt still finishing Basaglar supply at this time? Humalog?29?units?before breakfast, 29?units before lunch,?29?units before dinner? Previously?trialed DM medications: ? Sitagliptin --?changed to linagliptin ? Metformin IR --?stopped in Jan 2021 d/t diarrhea ? Jardiance ?-- stopped d/t h/o severe UTIs resulting in sepsis ? Trulicity ?-- stopped d/t severe nausea ? ? DIET: ? Meals:?2 meals/day (no set meals); daughter cooks for her at night; grazes in daytime ? Trying to follow diet set by HF clinic ? Mom's meals?through her insurance ? Recent Diet changes:?none ? Breakfast:?5-7 strawberries, coffee ? Lunch:?sandwich (egg salad, PBANDJ, tuna fish) ? Dinner:?chicken, veggies, stuffing or carbs ? Snacks:?fresh fruit (oranges, apples) - not usually at bedtime ? Beverages:?caffiene coffee (with cream; 1 cup/day), water (64 oz/day), V8 juice (once weekly), regular pepsi (1 every 2 weeks) ? Sodium Intake:?does NOT add; uses MsBrandi Dash (HF sodium-free diet); does reportedly lightly salt pakistani fries infrequently ? EXERCISE:?walks around inside of house. Has difficulty walking; can stand and pivot. Uses office chair with wheels to move around the inside of house.?Reports having displaced vertebrae pushing on nerve and degenerative disk disease limiting her ability to walk. ? SOCIAL Hx: ? Tobacco:?denies ? Alcohol:?denies ? Illicits:?denies ROS: - Patient denies CP, SOB, HEAD, blurred vision, dizziness or lightheadedness - Patient denies nausea, vomiting, diarrhea, abdominal pain - Patient denies symptoms of hypoglycemia (sweating, anxiety, palpitations, hunger, and tremor) - Patient denies symptoms of hyperglycemia (polyuria, polydipsia, polyphagia) - Patient denies potential medication adverse effects Past medical, family and social history reviewed and updated. ACTIVE PROBLEM LIST Diya (Obstructive Sleep Apnea) Chf (Congestive Heart Failure) ([facility]) Type 2 Diabetes Mellitus With Diabetic Polyneuropathy, With Long-Term Current Use of Insulin ([facility]) Coronary Arteriosclerosis in [place] Artery Bipolar Disorder ([facility]) Mixed Hyperlipidemia Class 3 Severe Obesity With Serious Comorbidity and Body Mass Index (Bmi) of 45.0 to 49.9 in Adult ([facility]) Chronic Respiratory Failure With Hypoxia ([facility]) Chronic Obstructive Pulmonary Disease ([facility]) Physical Debility Recurrent Uti (Urinary Tract Infection) Primary Hypertension Stage 3b Chronic Kidney Disease ([facility]) Microalbuminuria PAST MEDICAL HISTORY Diagnosis Date - Asthma - CAD (coronary artery disease) s/p stent. last one >5 years ago - CHF (congestive heart failure) ([facility]) - COPD (chronic obstructive pulmonary disease) ([facility]) - DM2 (diabetes mellitus, type 2) ([facility]) - HTN (hypertension) - Mixed hyperlipidemia - Pneumonia due to COVID-19 virus 10/13/2020 ALLERGIES Allergen Reactions - Dilaudid [Hydromorp* Vomiting - Jardiance [Empaglif* Other: See Comments U (more content not included)...[facility]04-05-2022 Miscellaneous Notes* Telephone Encounter - Scarlet Morse APRN.CNP - 01/31/2022 1:06 PM EDT The following approved medication requests have been transmitted electronically. Pending Prescriptions Disp Refills PREGABALIN 75 MG CAPSULE 60 capsule 0 Sig: Take 1 capsule by mouth twice daily for 30 days. LIN Class: C-V PETE: No PDMP checked and validated. All prescriptions have been appropriately filled. No suspicious activity was identified. Scarlet Morse APRN.CNP * Telephone Encounter - Moe Sawyer - 01/30/2022 3:07 PM EDT Patient will be out tomorrow. States has an appointment Sunday with a new doctor, and asking for a refill to her to appointment. Patient has been identified by name and date of : Yes Last office visit in this department: 11/15/2020 RX INSTRUCTIONS: Patient aware RX will be sent to pharmacy. No need to notify patient. Patient phones requesting refills as follows: Pending Prescriptions Disp Refills PREGABALIN 75 MG CAPSULE 180 capsule 1 Sig: Take 1 capsule by mouth twice daily for 180 days. LIN Class: C-V PETE: No Please review and advise. Moe Sawyer documented in this encounterWright-Pat[facility]03-28-2022 Miscellaneous Notes* Telephone Encounter - Susan Cuello [facility] - 01/23/2022 4:30 PM EDT Pt contacted office requesting to speak with pharmD (myself) directly. Returned pt's call who provided an update that her insurance has not yet received CGM request from [employer]. Advised pt that her recent chart notes were faxed to [employer] by both myself and Dr. Meyer's office on 01/06/22 and 01/12/22, respectively. Encouraged pt to contact [employer] as they may be awaiting confirmation from her (phone: ) of which she plans to do at this time. Thank you, Susan Cuello, PharmD documented in this encounterWright-Patterson Medical Center03-23-2022 Nurse Note* Travis House, RN - 01/18/2022 8:31 AM EDT Heart Failure Clinic Telephone Visit: Kimberly Patel has consented to this tele-health visit. She is unable to leave the house d/t deconditioning and poor mobility. She is scheduled with Dr. Deng, [place] visit on 02/03/22. Per patient, states that she was recently at [facility], treated for UTI. Her Lasix was previously 40 mg BID and reduced to20 mg daily d/t kidney status. Patient is unable to weigh, but thinks her weight is around 280 lbs.She takes her medications as prescribed but her diet is very high in sodium (fast food, lunch meat., take out, convenient items) despite previous education. She relies on her daughter for help with meal and sometimes, 'that's all she can provide with her busy schedule'. Also, she has not had a follow up with Dr. Silva since 01/2021, encouraged patient to schedule follow up, phone number provided. Spoke directly with patient Yes New patient visit No Established patient visit Yes Change in health status since discharge Yes, couple admissions d/t URI, deconditioned, went to a skilled facility short term Do you have a scale to at home to weigh yourself everyday? No Are you weighing yourself daily and writing it down? No Weight at discharge/last visit 273? When discharged from [facility] Weight today N/A Do you have any signs/symptoms? Weight gain Yes Edema Yes, legs, doesn't think it's any worse, feels it's at baseline SOB with activity Yes SOB at rest No SOB when lying flat No # of pillows 1/2 pillow norm Abdominal distention No Changed in appetite No Cough No Do you know who to contact if you have weight gain or symptoms? Yes Do you know how much weight gain in either 1 day and 7 days is important to let the HF Clinic know about? Unable to weigh, cannot leave the house at present Do you know what other symptoms to report to the HF Clinic? Yes Medications were reviewed Yes Do you have all of your medications? Yes Have you been taking your medications as directed? Yes Have you been maintaining a 4886-8656 mg of sodium diet? No, fast food, processed items Are you reading labels? No Have you been maintaining a 2 liter (64 oz) fluid restriction? Yes Diet reviewed Yes,Reinforced the importance of following a 2 gm sodium diet, 64 oz fluid restriction, label reading, medication adherence, increased activity and follow up care. Reminded her of the signs/symptoms of impending CHF and when to call the [facility] for early intervention. Are you exercising/active? No Do you have any questions/concerns? No Reviewed who to contact for questions/concerns Yes Confirmed patient has HF Clinic phone number and provider phone numbers Yes Reviewed HF Clinic hours of operation Yes Reviewed when to seek Emergency Room/911 care Yes Reviewed upcoming appointments Yes Verbalized understanding? Yes Next visit 06/2022 Time spent: 30 > 50% counseling and coordination of care Travis House RN January 18, 2022 8:31 AM documented in this encounterWright-Patterson [facility] Center03-18-2022 NoteHNO ID: [id number] Author: Susan Cuello RPh Service: ? Author Type: Pharmacist Type: Progress Notes Filed: 01/13/2022 10:39 AM Note Text: Primary Care Pharmacy Visit Patient consents to pharmacy consult agreement. CC (Reason for Consult):?Type 2 diabetes mellitus with diabetic polyneuropathy, with long-term current use of insulin (HCC) - ICD9: 250.60, 357.2, V58.67, ICD10: E11.42, Z79.4 ? Goal: A1c <8% Last Collaborating Physician Visit: Dr. Meyer,?12/19/21 Kimberly Patel is a 66 year old female presenting for follow up visit by telephone. Patient consents to pharmacy collaborative practice agreement. . HPI: patient was diagnosed with?T2DM?>10 yrs ago (pt uncertain of year).?Established with pharmacist for diabetes management on 08/05/21. Last seen by pharmacy on 01/06/22 at which time: - No recent CGM data or SMBGs available - Deferred DM med adj to prevent blind adj given no recent data since last fern and recent insulin dose changes made at that time - Switched Basaglar to Levemir and Novolog to Humalog per insurance formulary update - Pt requested 1 week f/u INTERIM HISTORY: - 01/12/22 - Dr. Lake office faxed notes to CGM supply company as well - 01/06/22 - Recent office notes faxed to pt's new CGM supply company, [employer] SUBJECTIVE: - Doing well - Reports starting to regain some strength in her legs - Has one sensor still left at home but her daughter has not yet been able to assist her with the application of this Current?DM medications:? ? Tradjenta 5 mg daily ? Levemir 40?units AM;?40?units PM? -- pt still finishing Basaglar supply at this time? Humalog?29?units?before breakfast, 29?units before lunch,?29?units before dinner? -- pt still finishing Novolog supply at this time?? ? Previously?trialed DM medications: ? Sitagliptin --?changed to linagliptin ? Metformin IR --?stopped in Jan 2021 d/t diarrhea ? Jardiance ?-- stopped d/t h/o severe UTIs resulting in sepsis ? Trulicity ?-- stopped d/t severe nausea ? ? DIET: ? Meals:?2 meals/day (no set meals); daughter cooks for her at night; grazes in daytime ? Trying to follow diet set by HF clinic ? Mom's meals?through her insurance ? Recent Diet changes:?none ? Breakfast:?5-7 strawberries, coffee ? Lunch:?sandwich (egg salad, PBANDJ, tuna fish) ? Dinner:?chicken, veggies, stuffing or carbs ? Snacks:?fresh fruit (oranges, apples) - not usually at bedtime ? Beverages:?caffiene coffee (with cream; 1 cup/day), water (64 oz/day), V8 juice (once weekly), regular pepsi (1 every 2 weeks) ? Sodium Intake:?does NOT add; uses Ms. Arauz (HF sodium-free diet); does reportedly lightly salt pakistani fries infrequently ? EXERCISE:?walks around inside of house. Has difficulty walking; can stand and pivot. Uses office chair with wheels to move around the inside of house.?Reports having displaced vertebrae pushing on nerve and degenerative disk disease limiting her ability to walk. ? SOCIAL Hx: ? Tobacco:?denies ? Alcohol:?denies ? Illicits:?denies ROS: - Patient denies CP, SOB, HEAD, blurred vision, dizziness or lightheadedness - Patient denies nausea, vomiting, diarrhea, abdominal pain - Patient denies symptoms of hypoglycemia (sweating, anxiety, palpitations, hunger, and tremor) - Patient denies symptoms of hyperglycemia (polyuria, polydipsia, polyphagia) - Patient denies potential medication adverse effects Past medical, family and social history reviewed and updated. ACTIVE PROBLEM LIST Diya (Obstructive Sleep Apnea) Chf (Congestive Heart Failure) ([facility]) Type 2 Diabetes Mellitus With Diabetic Polyneuropathy, With Long-Term Current Use of Insulin ([facility]) Coronary Arteriosclerosis in [place] Artery Bipolar Disorder ([facility]) Mixed Hyperlipidemia Class 3 Severe Obesity With Serious Comorbidity and Body Mass Index (Bmi) of 45.0 to 49.9 in Adult ([facility]) Chronic Respiratory Failure With Hypoxia ([facility]) Chronic Obstructive Pulmonary Disease ([facility]) Physical Debility Recurrent Uti (Urinary Tract Infection) Primary Hypertension Stage 3b Chronic Kidney Disease ([facility]) Microalbuminuria PAST MEDICAL HISTORY Diagnosis Date - Asthma - CAD (coronary artery disease) s/p stent. last one >5 years ago - CHF (congestive heart failure) ([facility]) - COPD (chronic obstructive pulmonary disease) ([facility]) - DM2 (diabetes mellitus, type 2) ([facility]) - HTN (hypertension) - Mixed hyperlipidemia - Pneumonia due to COVID-19 virus 10/13/2020 ALLERGIES Allergen Reactions - Dilaudid [Hydromorp* Vomiting - Jardiance [Empaglif* Other: See Comments UTI - Metformin Diarrhea - Morphine Vomiting - Ondansetron Unknown - Penicillins Rash - Trulicity [Dulaglut* GI Upset Nausea/Vomiting MEDICATIONS/SUPPLIES: - Pill bottles are not present. - Adherence: denies missed doses. ? Org (more content not included)...[facility]03-11-2022 NoteHNO ID: [id number] Author: Susan Cuello [facility] Service: ? Author Type: Pharmacist Type: Progress Notes Filed: 01/06/2022 3:00 PM Note Text: Primary Care Pharmacy Visit Patient consents to pharmacy consult agreement. CC (Reason for Consult):?Type 2 diabetes mellitus with diabetic polyneuropathy, with long-term current use of insulin (HCC) - ICD9: 250.60, 357.2, V58.67, ICD10: E11.42, Z79.4 ? Goal: A1c <8% Last Collaborating Physician Visit: Dr. Meyer,?12/19/21 Kimberly Patel is a 66 year old female presenting for follow up visit by telephone. Patient consents to pharmacy collaborative practice agreement. . HPI: patient was diagnosed with?T2DM?>10 yrs ago (pt uncertain of year).?Established with pharmacist for diabetes management on 08/05/21. Last seen by pharmacy on 12/16/21 at which time: - CGM revealed improved BGs though above goal on average - Increased basal insulin by ~15% INTERIM HISTORY: - 12/30/21 - Basaglar and Novolog no longer on insurance formulary - 12/19/21 - PCP fern: consulted to [facility] at home. No med changes made. SUBJECTIVE: - Sometimes forgetting her Novolog --- doesn't want to take too soon and sometimes forgets after - Has not been wearing a sensor, last wore a few weeks ago and has not done fingerpricks since then. (previously obtained via [employer]). States an order is currently in process via [facility] (or [facility]); pt not certain of which company. - Has 1 sensor remaining, plans on having her daughter apply this - Pt requesting pharmD f/u in ~1 week as she will collect BGs between now and then for possible med adj Current?DM medications:? ? Tradjenta 5 mg daily ? Basaglar 40?units AM;?40?units PM? Novolog?29?units?before breakfast, 29?units before lunch,?29?units before dinner? Previously?trialed DM medications: ? Sitagliptin --?changed to linagliptin ? Metformin IR --?stopped in Jan 2021 d/t diarrhea ? Jardiance ?-- stopped d/t h/o severe UTIs resulting in sepsis ? Trulicity ?-- stopped d/t severe nausea ? ? DIET: ? Meals:?2 meals/day (no set meals); daughter cooks for her at night; grazes in daytime ? Trying to follow diet set by HF clinic ? Mom's meals?through her insurance ? Recent Diet changes:?none ? Breakfast:?5-7 strawberries, coffee ? Lunch:?sandwich (egg salad, PBANDJ, tuna fish) ? Dinner:?chicken, veggies, stuffing or carbs ? Snacks:?fresh fruit (oranges, apples) - not usually at bedtime ? Beverages:?caffiene coffee (with cream; 1 cup/day), water (64 oz/day), V8 juice (once weekly), regular pepsi (1 every 2 weeks) ? Sodium Intake:?does NOT add; uses Ms. Dash (HF sodium-free diet); does reportedly lightly salt pakistani fries infrequently ? EXERCISE:?walks around inside of house. Has difficulty walking; can stand and pivot. Uses office chair with wheels to move around the inside of house.?Reports having displaced vertebrae pushing on nerve and degenerative disk disease limiting her ability to walk. ? SOCIAL Hx: ? Tobacco:?denies ? Alcohol:?denies ? Illicits:?denies ROS: - Patient denies CP, SOB, HEAD, blurred vision, dizziness or lightheadedness - Patient denies nausea, vomiting, diarrhea, abdominal pain - Patient denies symptoms of hypoglycemia (sweating, anxiety, palpitations, hunger, and tremor) - Patient denies symptoms of hyperglycemia (polyuria, polydipsia, polyphagia) - Patient denies potential medication adverse effects Past medical, family and social history reviewed and updated. ACTIVE PROBLEM LIST Diya (Obstructive Sleep Apnea) Chf (Congestive Heart Failure) ([facility]) Type 2 Diabetes Mellitus With Diabetic Polyneuropathy, With Long-Term Current Use of Insulin ([facility]) Coronary Arteriosclerosis in [place] Artery Bipolar Disorder ([facility]) Mixed Hyperlipidemia Class 3 Severe Obesity With Serious Comorbidity and Body Mass Index (Bmi) of 45.0 to 49.9 in Adult ([facility]) Chronic Respiratory Failure With Hypoxia ([facility]) Chronic Obstructive Pulmonary Disease ([facility]) Physical Debility Recurrent Uti (Urinary Tract Infection) Primary Hypertension Stage 3b Chronic Kidney Disease ([facility]) Microalbuminuria PAST MEDICAL HISTORY Diagnosis Date - Asthma - CAD (coronary artery disease) s/p stent. last one >5 years ago - CHF (congestive heart failure) ([facility]) - COPD (chronic obstructive pulmonary disease) ([facility]) - DM2 (diabetes mellitus, type 2) ([facility] [facility]) - HTN (hypertension) - Mixed hyperlipidemia - Pneumonia due to COVID-19 virus 10/13/2020 ALLERGIES Allergen Reactions - Dilaudid [Hydromorp* Vomiting - Jardiance [Empaglif* Other: See Comments UTI - Metformin Diarrhea - Morphine Vomiting - Ondansetron Unknown - Penicillins Rash - Trulicity [Dulaglut* GI Upset Nausea/Vomiting MEDICATIONS/SUPPLIES: - Pill bottles are not present. - Adherence: reports mi (more content not included)...[facility] 12-19-2021 NoteHNO ID: [id number] Author: Moe Meyer MD Service: ? Author Type: Physician Type: Progress Notes Filed: 12/19/2021 7:46 AM Note Text: DISTANCE HEALTH VISIT This Team Access Model visit is a phone encounter. It required patient-provider interaction for the medical decision making as documented below. Kimberly Patel is a 66 year old female seen for follow up on her hospitalization in September and for her chronic conditions. She was hospitalized in September with severe sepsis due to UTI. She was discharged to a SNF initially, but is now back home. She gets recurrent UTIs. Has been referred to urology but has declined to schedule due to transportation/mobility issues. She is currently bed bound and unable to transfer to a wheelchair due to generalized weakness. In need of home o2 recertification. Insurance has not accepted the forms sent and require a face to face visit with O2 testing. She has been working with endocrinology and a clinical pharmacist to get better control of her diabetes. Last A1C was 10.8 in July. She has not yet had repeat labs. She is not able to tell me any of her medications today. HISTORY REVIEWED (electronic chart updated): - medical history - medications - allergies REVIEW OF SYSTEMS: GENERAL: no recent change in weight, no fever RESPIRATORY: no cough, O2 requirement at baseline CARDIOVASCULAR: no chest pain, no palpitations NEURO: no numbness or paresthesias and no headache PHYSICAL EXAMINATION: VIDEO EXAM: (if done, performed via video enabled technology) No exam performed ASSESSMENT: (Z09) Hospital discharge follow-up (primary encounter diagnosis) (N39.0) Recurrent UTI (urinary tract infection) (E11.42, Z79.4) Type 2 diabetes mellitus with diabetic polyneuropathy, with long-term current use of insulin (HCC) (R53.81) Physical debility (E66.01, Z68.42) Class 3 severe obesity due to excess calories with serious comorbidity and body mass index (BMI) of 45.0 to 49.9 in adult (HCC) (J96.11) Chronic respiratory failure with hypoxia (HCC) (I50.42) Chronic combined systolic and diastolic congestive heart failure (HCC) PLAN: ASSESSMENT/PLAN: 1. Hospital discharge follow-up - ICD9: V67.59, ICD10: Z09 (primary diagnosis) Ongoing generalized weakness and inability to ambulate since her return home Needs home PT as well as a provider that will go to her home - CONSULT TO [facility] AT HOME 2. Recurrent UTI (urinary tract infection) - ICD9: 599.0, ICD10: N39.0 Not currently symptomatic Needs to schedule with urology 3. Type 2 diabetes mellitus with diabetic polyneuropathy, with long-term current use of insulin (HCC) - ICD9: 250.60, 357.2, V58.67, ICD10: E11.42, Z79.4 poorly controlled - Continue current medications - Follow up with endocrinology and pharmacy as scheduled 4. Physical debility - ICD9: 799.3, ICD10: R53.81 - CONSULT TO [facility] AT HOME - CONSULT TO [facility] AT HOME 5. Generalized weakness - ICD9: 780.79, ICD10: R53.1 6. Class 3 severe obesity due to excess calories with serious comorbidity and body mass index (BMI) of 45.0 to 49.9 in adult (HCC) - ICD9: 278.01, V85.42, ICD10: E66.01, Z68.42 - CONSULT TO [facility] AT HOME - CONSULT TO [facility] AT HOME 7. Chronic respiratory failure with hypoxia (HCC) - ICD9: 518.83, 799.02, ICD10: J96.11 Need o2 recertification LALA - CONSULT TO [facility] AT HOME 8. Chronic combined systolic and diastolic congestive heart failure (HCC) - ICD9: 428.42, 428.0, ICD10: I50.42 - CONSULT TO [facility] AT HOME Time spent: 35 mins There are no Patient Instructions on file for this visit. Moe Meyer [facility]02-18-2022 NoteHNO ID: [id number] Author: Susan Cuello [facility] Service: ? Author Type: Pharmacist Type: Progress Notes Filed: 12/16/2021 12:35 PM Note Text: Primary Care Pharmacy Visit Patient consents to pharmacy consult agreement. CC (Reason for Consult):?Type 2 diabetes mellitus with diabetic polyneuropathy, with long-term current use of insulin (HCC) - ICD9: 250.60, 357.2, V58.67, ICD10: E11.42, Z79.4 ? Goal: A1c <8% Last Collaborating Physician Visit: Dr. Meyer,?08/26/21 Kimberly Patel is a 66 year old female presenting for follow up visit by telephone. Patient consents to pharmacy collaborative practice agreement. . HPI: patient was diagnosed with?T2DM?>10 yrs ago (pt uncertain of year).?Established with pharmacist for diabetes management on 08/05/21. INTERIM HISTORY: Last seen by pharmacy on 11/23/21 at which time: - No BG data available - Identified pt never made insulin adj as intended at recent End[facility]; advised pt to do so today - Pt advised to resume checking BGs with new sensor placement - Advised on appropriate use of Skin Tac to aid in sensor adhesion as well - Recheck A1c ordered SUBJECTIVE: - Now using [employer] mobile fern as reader device; her daughter helped her set this up - Daughter planning to help change her sensor today; helps with each sensor application Current?DM medications:? ? Tradjenta 5 mg daily ? Basaglar 35?units AM;?36?units PM? Novolog?29?units?before breakfast, 29 units before lunch,?29?units before dinner ? Previously?trialed DM medications: ? Sitagliptin --?changed to linagliptin ? Metformin IR --?stopped in Jan 2021 d/t diarrhea ? Jardiance ?-- stopped d/t h/o severe UTIs resulting in sepsis ? Trulicity ?-- stopped d/t severe nausea ? ? DIET: ? Meals:?2 meals/day (no set meals); daughter cooks for her at night; grazes in daytime ? Trying to follow diet set by HF clinic ? Mom's meals?through her insurance ? Recent Diet changes:?none ? Breakfast:?5-7 strawberries, coffee ? Lunch:?sandwich (egg salad, PBANDJ, tuna fish) ? Dinner:?chicken, veggies, stuffing or carbs ? Snacks:?fresh fruit (oranges, apples) - not usually at bedtime ? Beverages:?caffiene coffee (with cream; 1 cup/day), water (64 oz/day), V8 juice (once weekly), regular pepsi (1 every 2 weeks) ? Sodium Intake:?does NOT add; uses Ms. Arauz (HF sodium-free diet); does reportedly lightly salt pakistani fries infrequently ? EXERCISE:?walks around inside of house. Has difficulty walking; can stand and pivot. Uses office chair with wheels to move around the inside of house.?Reports having displaced vertebrae pushing on nerve and degenerative disk disease limiting her ability to walk. ? SOCIAL Hx: ? Tobacco:?denies ? Alcohol:?denies ? Illicits:?denies ROS: - Patient denies CP, SOB, HEAD, blurred vision, dizziness or lightheadedness - Patient denies nausea, vomiting, diarrhea, abdominal pain - Patient denies symptoms of hypoglycemia (sweating, anxiety, palpitations, hunger, and tremor) - Patient denies symptoms of hyperglycemia (polyuria, polydipsia, polyphagia) - Patient denies potential medication adverse effects Past medical, family and social history reviewed and updated. ACTIVE PROBLEM LIST Diya (Obstructive Sleep Apnea) Dyspnea Chf (Congestive Heart Failure) ([facility]) Type 2 Diabetes Mellitus With Diabetic Polyneuropathy, With Long-Term Current Use of Insulin ([facility]) Lower Extremity Cellulitis Coronary Arteriosclerosis in [place] Artery Bipolar Disorder ([facility]) Mixed Hyperlipidemia Morbid Obesity Due to Excess Calories ([facility]) Acute Kidney Injury Superimposed On Chronic Kidney Disease ([facility]) Class 3 Severe Obesity With Serious Comorbidity and Body Mass Index (Bmi) of 45.0 to 49.9 in Adult ([facility]) Chronic Respiratory Failure With Hypoxia ([facility]) Chronic Obstructive Pulmonary Disease ([facility]) Physical Debility Uti (Urinary Tract Infection) Bacteremia Neuropathy Primary Hypertension Stage 3b Chronic Kidney Disease ([facility]) Microalbuminuria PAST MEDICAL HISTORY Diagnosis Date - Asthma - CAD (coronary artery disease) s/p stent. last one >5 years ago - CHF (congestive heart failure) ([facility]) - COPD (chronic obstructive pulmonary disease) ([facility]) - DM2 (diabetes mellitus, type 2) ([facility]) - HTN (hypertension) - Mixed hyperlipidemia - Pneumonia due to COVID-19 virus 10/13/2020 ALLERGIES Allergen Reactions - Dilaudid [Hydromorp* Vomiting - Jardiance [Empaglif* Other: See Comments UTI - Metformin Diarrhea - Morphine Vomiting - Ondansetron Unknown - Penicillins Rash - Trulicity [Dulaglut* GI Upset Nausea/Vomiting MEDICATIONS/SUPPLIES: - Pill bottles are not present. - Adherence: denies missed doses. ? Organization System:?[facility] ? Does the patient have diabetes supplies:?Yes ? CGM = [employer] (more content not included)...[facility] 10-12-2021 History of Past illness Narrative* Problem Noted Date Resolved Date Bacteremia 10/12/2021 12/19/2021 Overview: Last Assessment & Plan: - Blood and urine cx + for E. Coli - Improving, continue on planned antibiotic course: Cephalixin 1000 mg q8h through 10/15 - Afebrile, denies fever or chills on exam today Neuropathy 10/12/2021 12/19/2021 Overview: Last Assessment & Plan: - BLE neuropathy - Continue Lyrica 75 mg BID NSTEMI (non-ST elevated myocardial infarction) 0 02/06/2021 02/09/2021 Morbid obesity due to excess calories 11/30/2020 12/19/2021 Acute kidney injury superimposed on chronic kidn ey disease 11/30/2020 12/19/2021 CHF, acute on chronic 11/28/2020 08/26/2021 Lower extremity cellulitis 11/28/202012/19 Present for a month 10/17/2020 08/26/2021 Pneumonia due to COVID-19 virus 10/13/2020 08/26/2021 Heart disease (organic) 05/31/2012 08/26/20 21 Dyspnea 05/31/2012 12/19/2021 documented as of this encounter (statuses as of 01/19/2022) [facility]12-15-2021 History of Past illness Narrative* Problem Noted Date Resolved Date Bacteremia 10/12/2021 12/19/2021 Overview: Last Assessment & Plan: - Blood and urine cx + for E. Coli - Improving, continue on planned antibiotic course: Cephalixin 1000 mg q8h through 10/15 - Afebrile, denies fever or chills on exam today Neuropathy 10/12/2021 12/19/2021 Overview: Last Assessment & Plan: - BLE neuropathy - Continue Lyrica 75 mg BID NSTEMI (non-ST elevated myocardial infarction) 0 02/06/2021 02/09/2021 Morbid obesity due to excess calories 11/30/2020 12/19/2021 Acute kidney injury superimposed on chronic kidn ey disease 11/30/2020 12/19/2021 CHF, acute on chronic 11/28/2020 08/26/2021 Lower extremity cellulitis 11/28/202012/19 Present for a month 10/17/2020 08/26/2021 Pneumonia due to COVID-19 virus 10/13/2020 08/26/2021 Heart disease (organic) 05/31/2012 08/26/20 21 Dyspnea 05/31/2012 12/19/2021 documented as of this encounter (statuses as of 01/23/2022) [facility]12-[facility]-2021 History of Past illness Narrative* Problem Noted Date Resolved Date Bacteremia 10/12/2021 12/19/2021 Overview: Last Assessment & Plan: - Blood and urine cx + for E. Coli - Improving, continue on planned antibiotic course: Cephalixin 1000 mg q8h through 10/15 - Afebrile, denies fever or chills on exam today Neuropathy 10/12/2021 12/19/2021 Overview: Last Assessment & Plan: - BLE neuropathy - Continue Lyrica 75 mg BID NSTEMI (non-ST elevated myocardial infarction) 0 02/06/2021 02/09/2021 Morbid obesity due to excess calories 11/30/2020 12/19/2021 Acute kidney injury superimposed on chronic kidn ey disease 11/30/2020 12/19/2021 CHF, acute on chronic 11/28/2020 08/26/2021 Lower extremity cellulitis 11/28/202012/19 Present for a month 10/17/2020 08/26/2021 Pneumonia due to COVID-19 virus 10/13/2020 08/26/2021 Heart disease (organic) 05/31/2012 08/26/20 21 Dyspnea 05/31/2012 12/19/2021 documented as of this encounter (statuses as of 01/31/2022) [facility] History of Past illness Narrative* Problem Noted Date Resolved Date Bacteremia 10/12/2021 12/19/2021 Overview: Last Assessment & Plan: - Blood and urine cx + for E. Coli - Improving, continue on planned antibiotic course: Cephalixin 1000 mg q8h through 10/15 - Afebrile, denies fever or chills on exam today Neuropathy 10/12/2021 12/19/2021 Overview: Last Assessment & Plan: - BLE neuropathy - Continue Lyrica 75 mg BID NSTEMI (non-ST elevated myocardial infarction) 0 02/06/2021 02/09/2021 Morbid obesity due to excess calories 11/30/2020 12/19/2021 Acute kidney injury superimposed on chronic kidn ey disease 11/30/2020 12/19/2021 CHF, acute on chronic 11/28/2020 08/26/2021 Lower extremity cellulitis 11/28/202012/19 Present for a month 10/17/2020 08/26/2021 Pneumonia due to COVID-19 virus 10/13/2020 08/26/2021 Heart disease (organic) 05/31/2012 08/26/20 Dyspnea 05/31/2012 12/19/2021 documented as of this encounter (statuses as of 02/15/2022) [facility] History of Past illness Narrative* Problem Noted Date Resolved Date Bacteremia 10/12/2021 12/19/2021 Overview: Last Assessment & Plan: - Blood and urine cx + for E. Coli - Improving, continue on planned antibiotic course: Cephalixin 1000 mg q8h through 10/15 - Afebrile, denies fever or chills on exam today Neuropathy 10/12/2021 12/19/2021 Overview: Last Assessment & Plan: - BLE neuropathy - Continue Lyrica 75 mg BID NSTEMI (non-ST elevated myocardial infarction) 0 02/06/2021 02/09/2021 Morbid obesity due to excess calories 11/30/2020 12/19/2021 Acute kidney injury superimposed on chronic kidn ey disease 11/30/2020 12/19/2021 CHF, acute on chronic 11/28/2020 08/26/2021 Lower extremity cellulitis 11/28/202012/19 Present for a month 10/17/2020 08/26/2021 Pneumonia due to COVID-19 virus 10/13/2020 08/26/2021 Heart disease (organic) 05/31/2012 08/26/20 Dyspnea 05/31/2012 12/19/2021 documented as of this encounter (statuses as of 02/20/2022) [facility] History of Past illness Narrative* Problem Noted Date Resolved Date Bacteremia 10/12/2021 12/19/2021 Overview: Last Assessment & Plan: - Blood and urine cx + for E. Coli - Improving, continue on planned antibiotic course: Cephalixin 1000 mg q8h through 10/15 - Afebrile, denies fever or chills on exam today Neuropathy 10/12/2021 12/19/2021 Overview: Last Assessment & Plan: - BLE neuropathy - Continue Lyrica 75 mg BID NSTEMI (non-ST elevated myocardial infarction) 0 02/06/2021 02/09/2021 Morbid obesity due to excess calories 11/30/2020 12/19/2021 Acute kidney injury superimposed on chronic kidn ey disease 11/30/2020 12/19/2021 CHF, acute on chronic 11/28/2020 08/26/2021 Lower extremity cellulitis 11/28/202012/19 Present for a month 10/17/2020 08/26/2021 Pneumonia due to COVID-19 virus 10/13/2020 08/26/2021 Heart disease (organic) 05/31/2012 08/26/20 21 Dyspnea 05/31/2012 12/19/2021 documented as of this encounter (statuses as of 02/24/2022) [facility] History of Past illness Narrative* Problem Noted Date Resolved Date Bacteremia 10/12/2021 12/19/2021 Overview: Last Assessment & Plan: - Blood and urine cx + for E. Coli - Improving, continue on planned antibiotic course: Cephalixin 1000 mg q8h through 10/15 - Afebrile, denies fever or chills on exam today Neuropathy 10/12/2021 12/19/2021 Overview: Last Assessment & Plan: - BLE neuropathy - Continue Lyrica 75 mg BID NSTEMI (non-ST elevated myocardial infarction) 0 02/06/2021 02/09/2021 Morbid obesity due to excess calories 11/30/2020 12/19/2021 Acute kidney injury superimposed on chronic kidn ey disease 11/30/2020 12/19/2021 CHF, acute on chronic 11/28/2020 08/26/2021 Lower extremity cellulitis 11/28/202012/19 Present for a month 10/17/2020 08/26/2021 Pneumonia due to COVID-19 virus 10/13/2020 08/26/2021 Heart disease (organic) 05/31/2012 08/26/20 Dyspnea 05/31/2012 12/19/2021 documented as of this encounter (statuses as of 02/27/2022) [facility] History of Past illness Narrative* Problem Noted Date Resolved Date Bacteremia 10/12/2021 12/19/2021 Overview: Last Assessment & Plan: - Blood and urine cx + for E. Coli - Improving, continue on planned antibiotic course: Cephalixin 1000 mg q8h through 10/15 - Afebrile, denies fever or chills on exam today Neuropathy 10/12/2021 12/19/2021 Overview: Last Assessment & Plan: - BLE neuropathy - Continue Lyrica 75 mg BID NSTEMI (non-ST elevated myocardial infarction) 0 02/06/2021 02/09/2021 Morbid obesity due to excess calories 11/30/2020 12/19/2021 Acute kidney injury superimposed on chronic kidn ey disease 11/30/2020 12/19/2021 CHF, acute on chronic 11/28/2020 08/26/2021 Lower extremity cellulitis 11/28/202012/19 Present for a month 10/17/2020 08/26/2021 Pneumonia due to COVID-19 virus 10/13/2020 08/26/2021 Heart disease (organic) 05/31/2012 08/26/20 21 Dyspnea 05/31/2012 12/19/2021 documented as of this encounter (statuses as of 02/27/2022) [facility] History of Past illness Narrative* Problem Noted Date Resolved Date Bacteremia 10/12/2021 12/19/2021 Overview: Last Assessment & Plan: - Blood and urine cx + for E. Coli - Improving, continue on planned antibiotic course: Cephalixin 1000 mg q8h through 10/15 - Afebrile, denies fever or chills on exam today Neuropathy 10/12/2021 12/19/2021 Overview: Last Assessment & Plan: - BLE neuropathy - Continue Lyrica 75 mg BID NSTEMI (non-ST elevated myocardial infarction) 0 02/06/2021 02/09/2021 Morbid obesity due to excess calories 11/30/2020 12/19/2021 Acute kidney injury superimposed on chronic kidn ey disease 11/30/2020 12/19/2021 CHF, acute on chronic 11/28/2020 08/26/2021 Lower extremity cellulitis 11/28/202012/19 Present for a month 10/17/2020 08/26/2021 Pneumonia due to COVID-19 virus 10/13/2020 08/26/2021 Heart disease (organic) 05/31/2012 08/26/20 21 Dyspnea 05/31/2012 12/19/2021 documented as of this encounter (statuses as of 02/28/2022) [facility] History of Past illness Narrative* Problem Noted Date Resolved Date Bacteremia 10/12/2021 12/19/2021 Overview: Last Assessment & Plan: - Blood and urine cx + for E. Coli - Improving, continue on planned antibiotic course: Cephalixin 1000 mg q8h through 10/15 - Afebrile, denies fever or chills on exam today Neuropathy 10/12/2021 12/19/2021 Overview: Last Assessment & Plan: - BLE neuropathy - Continue Lyrica 75 mg BID NSTEMI (non-ST elevated myocardial infarction) 0 02/06/2021 02/09/2021 Morbid obesity due to excess calories 11/30/2020 12/19/2021 Acute kidney injury superimposed on chronic kidn ey disease 11/30/2020 12/19/2021 CHF, acute on chronic 11/28/2020 08/26/2021 Lower extremity cellulitis 11/28/202012/19 Present for a month 10/17/2020 08/26/2021 Pneumonia due to COVID-19 virus 10/13/2020 08/26/2021 Heart disease (organic) 05/31/2012 08/26/20 21 Dyspnea 05/31/2012 12/19/2021 documented as of this encounter (statuses as of 03/08/2022) [facility] History of Past illness Narrative* Problem Noted Date Resolved Date Bacteremia 10/12/2021 12/19/2021 Overview: Last Assessment & Plan: - Blood and urine cx + for E. Coli - Improving, continue on planned antibiotic course: Cephalixin 1000 mg q8h through 10/15 - Afebrile, denies fever or chills on exam today Neuropathy 10/12/2021 12/19/2021 Overview: Last Assessment & Plan: - BLE neuropathy - Continue Lyrica 75 mg BID NSTEMI (non-ST elevated myocardial infarction) 0 02/06/2021 02/09/2021 Morbid obesity due to excess calories 11/30/2020 12/19/2021 Acute kidney injury superimposed on chronic kidn ey disease 11/30/2020 12/19/2021 CHF, acute on chronic 11/28/2020 08/26/2021 Lower extremity cellulitis 11/28/202012/19 Present for a month 10/17/2020 08/26/2021 Pneumonia due to COVID-19 virus 10/13/2020 08/26/2021 Heart disease (organic) 05/31/2012 08/26/20 21 Dyspnea 05/31/2012 12/19/2021 documented as of this encounter (statuses as of 03/09/2022) [facility] History of Past illness Narrative* Problem Noted Date Resolved Date Bacteremia 10/12/2021 12/19/2021 Overview: Last Assessment & Plan: - Blood and urine cx + for E. Coli - Improving, continue on planned antibiotic course: Cephalixin 1000 mg q8h through 10/15 - Afebrile, denies fever or chills on exam today Neuropathy 10/12/2021 12/19/2021 Overview: Last Assessment & Plan: - BLE neuropathy - Continue Lyrica 75 mg BID NSTEMI (non-ST elevated myocardial infarction) 0 02/06/2021 02/09/2021 Morbid obesity due to excess calories 11/30/2020 12/19/2021 Acute kidney injury superimposed on chronic kidn ey disease 11/30/2020 12/19/2021 CHF, acute on chronic 11/28/2020 08/26/2021 Lower extremity cellulitis 11/28/202012/19 Present for a month 10/17/2020 08/26/2021 Pneumonia due to COVID-19 virus 10/13/2020 08/26/2021 Heart disease (organic) 05/31/2012 08/26/20 21 Dyspnea 05/31/2012 12/19/2021 documented as of this encounter (statuses as of 03/09/2022) [facility] of Past illness Narrative* Problem Noted Date Resolved Date Bacteremia 10/12/2021 12/19/2021 Overview: Last Assessment & Plan: - Blood and urine cx + for E. Coli - Improving, continue on planned antibiotic course: Cephalixin 1000 mg q8h through 10/15 - Afebrile, denies fever or chills on exam today Neuropathy 10/12/2021 12/19/2021 Overview: Last Assessment & Plan: - BLE neuropathy - Continue Lyrica 75 mg BID NSTEMI (non-ST elevated myocardial infarction) 0 02/06/2021 02/09/2021 Morbid obesity due to excess calories 11/30/2020 12/19/2021 Acute kidney injury superimposed on chronic kidn ey disease 11/30/2020 12/19/2021 CHF, acute on chronic 11/28/2020 08/26/2021 Lower extremity cellulitis 11/28/202012/19 Present for a month 10/17/2020 08/26/2021 Pneumonia due to COVID-19 virus 10/13/2020 08/26/2021 Heart disease (organic) 05/31/2012 08/26/20 21 Dyspnea 05/31/2012 12/19/2021 documented as of this encounter (statuses as of 03/22/2022) [facility] of Past illness Narrative* Problem Noted Date Resolved Date Bacteremia 10/12/2021 12/19/2021 Overview: Last Assessment & Plan: - Blood and urine cx + for E. Coli - Improving, continue on planned antibiotic course: Cephalixin 1000 mg q8h through 10/15 - Afebrile, denies fever or chills on exam today Neuropathy 10/12/2021 12/19/2021 Overview: Last Assessment & Plan: - BLE neuropathy - Continue Lyrica 75 mg BID NSTEMI (non-ST elevated myocardial infarction) 0 02/06/2021 02/09/2021 Morbid obesity due to excess calories 11/30/2020 12/19/2021 Acute kidney injury superimposed on chronic kidn ey disease 11/30/2020 12/19/2021 CHF, acute on chronic 11/28/2020 08/26/2021 Lower extremity cellulitis 11/28/202012/19 Present for a month 10/17/2020 08/26/2021 Pneumonia due to COVID-19 virus 10/13/2020 08/26/2021 Heart disease (organic) 05/31/2012 08/26/20 21 Dyspnea 05/31/2012 12/19/2021 documented as of this encounter (statuses as of 03/23/2022) [facility] of Past illness Narrative* Problem Noted Date Resolved Date Bacteremia 10/12/2021 12/19/2021 Overview: Last Assessment & Plan: - Blood and urine cx + for E. Coli - Improving, continue on planned antibiotic course: Cephalixin 1000 mg q8h through 10/15 - Afebrile, denies fever or chills on exam today Neuropathy 10/12/2021 12/19/2021 Overview: Last Assessment & Plan: - BLE neuropathy - Continue Lyrica 75 mg BID NSTEMI (non-ST elevated myocardial infarction) 0 02/06/2021 02/09/2021 Morbid obesity due to excess calories 11/30/2020 12/19/2021 Acute kidney injury superimposed on chronic kidn ey disease 11/30/2020 12/19/2021 CHF, acute on chronic 11/28/2020 08/26/2021 Lower extremity cellulitis 11/28/202012/19 Present for a month 10/17/2020 08/26/2021 Pneumonia due to COVID-19 virus 10/13/2020 08/26/2021 Heart disease (organic) 05/31/2012 08/26/20 21 Dyspnea 05/31/2012 12/19/2021 documented as of this encounter (statuses as of 03/24/2022) [facility]12-15-2021 History of Past illness Narrative* Problem Noted Date Resolved Date Bacteremia 10/12/2021 12/19/2021 Overview: Last Assessment & Plan: - Blood and urine cx + for E. Coli - Improving, continue on planned antibiotic course: Cephalixin 1000 mg q8h through 10/15 - Afebrile, denies fever or chills on exam today Neuropathy 10/12/2021 12/19/2021 Overview: Last Assessment & Plan: - BLE neuropathy - Continue Lyrica 75 mg BID NSTEMI (non-ST elevated myocardial infarction) 0 02/06/2021 02/09/2021 Morbid obesity due to excess calories 11/30/2020 12/19/2021 Acute kidney injury superimposed on chronic kidn ey disease 11/30/2020 12/19/2021 CHF, acute on chronic 11/28/2020 08/26/2021 Lower extremity cellulitis 11/28/202012/19 Present for a month 10/17/2020 08/26/2021 Pneumonia due to COVID-19 virus 10/13/2020 08/26/2021 Heart disease (organic) 05/31/2012 08/26/20 21 Dyspnea 05/31/2012 12/19/2021 documented as of this encounter (statuses as of 03/25/2022) [facility]12-15-2021 History of Past illness Narrative* Problem Noted Date Resolved Date Bacteremia 10/12/2021 12/19/2021 Overview: Last Assessment & Plan: - Blood and urine cx + for E. Coli - Improving, continue on planned antibiotic course: Cephalixin 1000 mg q8h through 10/15 - Afebrile, denies fever or chills on exam today Neuropathy 10/12/2021 12/19/2021 Overview: Last Assessment & Plan: - BLE neuropathy - Continue Lyrica 75 mg BID NSTEMI (non-ST elevated myocardial infarction) 0 02/06/2021 02/09/2021 Morbid obesity due to excess calories 11/30/2020 12/19/2021 Acute kidney injury superimposed on chronic kidn ey disease 11/30/2020 12/19/2021 CHF, acute on chronic 11/28/2020 08/26/2021 Lower extremity cellulitis 11/28/202012/19 Present for a month 10/17/2020 08/26/2021 Pneumonia due to COVID-19 virus 10/13/2020 08/26/2021 Heart disease (organic) 05/31/2012 08/26/20 21 Dyspnea 05/31/2012 12/19/2021 documented as of this encounter (statuses as of 03/28/2022) [facility]12-15-2021 History of Past illness Narrative* Problem Noted Date Resolved Date Bacteremia 10/12/2021 12/19/2021 Overview: Last Assessment & Plan: - Blood and urine cx + for E. Coli - Improving, continue on planned antibiotic course: Cephalixin 1000 mg q8h through 10/15 - Afebrile, denies fever or chills on exam today Neuropathy 10/12/2021 12/19/2021 Overview: Last Assessment & Plan: - BLE neuropathy - Continue Lyrica 75 mg BID NSTEMI (non-ST elevated myocardial infarction) 0 02/06/2021 02/09/2021 Morbid obesity due to excess calories 11/30/2020 12/19/2021 Acute kidney injury superimposed on chronic kidn ey disease 11/30/2020 12/19/2021 CHF, acute on chronic 11/28/2020 08/26/2021 Lower extremity cellulitis 11/28/202012/19 Present for a month 10/17/2020 08/26/2021 Pneumonia due to COVID-19 virus 10/13/2020 08/26/2021 Heart disease (organic) 05/31/2012 08/26/20 21 Dyspnea 05/31/2012 12/19/2021 documented as of this encounter (statuses as of 03/28/2022) [facility]12-[facility]21 History of Past illness Narrative* Problem Noted Date Resolved Date Bacteremia 10/12/2021 12/19/2021 Overview: Last Assessment & Plan: - Blood and urine cx + for E. Coli - Improving, continue on planned antibiotic course: Cephalixin 1000 mg q8h through 10/15 - Afebrile, denies fever or chills on exam today Neuropathy 10/12/2021 12/19/2021 Overview: Last Assessment & Plan: - BLE neuropathy - Continue Lyrica 75 mg BID NSTEMI (non-ST elevated myocardial infarction) 0 02/06/2021 02/09/2021 Morbid obesity due to excess calories 11/30/2020 12/19/2021 Acute kidney injury superimposed on chronic kidn ey disease 11/30/2020 12/19/2021 CHF, acute on chronic 11/28/2020 08/26/2021 Lower extremity cellulitis 11/28/202012/19 Present for a month 10/17/2020 08/26/2021 Pneumonia due to COVID-19 virus 10/13/2020 08/26/2021 Heart disease (organic) 05/31/2012 08/26/20 21 Dyspnea 05/31/2012 12/19/2021 documented as of this encounter (statuses as of 04/11/2022) [facility]12-[facility]-2021 History of Past illness Narrative* Problem Noted Date Resolved Date Bacteremia 10/12/2021 12/19/2021 Overview: Last Assessment & Plan: - Blood and urine cx + for E. Coli - Improving, continue on planned antibiotic course: Cephalixin 1000 mg q8h through 10/15 - Afebrile, denies fever or chills on exam today Neuropathy 10/12/2021 12/19/2021 Overview: Last Assessment & Plan: - BLE neuropathy - Continue Lyrica 75 mg BID NSTEMI (non-ST elevated myocardial infarction) 0 02/06/2021 02/09/2021 Morbid obesity due to excess calories 11/30/2020 12/19/2021 Acute kidney injury superimposed on chronic kidn ey disease 11/30/2020 12/19/2021 CHF, acute on chronic 11/28/2020 08/26/2021 Lower extremity cellulitis 11/28/202012/19 Present for a month 10/17/2020 08/26/2021 Pneumonia due to COVID-19 virus 10/13/2020 08/26/2021 Heart disease (organic) 05/31/2012 08/26/20 21 Dyspnea 05/31/2012 12/19/2021 documented as of this encounter (statuses as of 04/13/2022) [facility]12-[facility]-2021 History of Past illness Narrative* Problem Noted Date Resolved Date Bacteremia 10/12/2021 12/19/2021 Overview: Last Assessment & Plan: - Blood and urine cx + for E. Coli - Improving, continue on planned antibiotic course: Cephalixin 1000 mg q8h through 10/15 - Afebrile, denies fever or chills on exam today Neuropathy 10/12/2021 12/19/2021 Overview: Last Assessment & Plan: - BLE neuropathy - Continue Lyrica 75 mg BID NSTEMI (non-ST elevated myocardial infarction) 0 02/06/2021 02/09/2021 Morbid obesity due to excess calories 11/30/2020 12/19/2021 Acute kidney injury superimposed on chronic kidn ey disease 11/30/2020 12/19/2021 CHF, acute on chronic 11/28/2020 08/26/2021 Lower extremity cellulitis 11/28/202012/19 Present for a month 10/17/2020 08/26/2021 Pneumonia due to COVID-19 virus 10/13/2020 08/26/2021 Heart disease (organic) 05/31/2012 08/26/20 21 Dyspnea 05/31/2012 12/19/2021 documented as of this encounter (statuses as of 04/14/2022) [facility]12[facility]2021 History of Past illness Narrative* Problem Noted Date Resolved Date Bacteremia 10/12/2021 12/19/2021 Overview: Last Assessment & Plan: - Blood and urine cx + for E. Coli - Improving, continue on planned antibiotic course: Cephalixin 1000 mg q8h through 10/15 - Afebrile, denies fever or chills on exam today Neuropathy 10/12/2021 12/19/2021 Overview: Last Assessment & Plan: - BLE neuropathy - Continue Lyrica 75 mg BID NSTEMI (non-ST elevated myocardial infarction) 0 02/06/2021 02/09/2021 Morbid obesity due to excess calories 11/30/2020 12/19/2021 Acute kidney injury superimposed on chronic kidn ey disease 11/30/2020 12/19/2021 CHF, acute on chronic 11/28/2020 08/26/2021 Lower extremity cellulitis 11/28/202012/19 Present for a month 10/17/2020 08/26/2021 Pneumonia due to COVID-19 virus 10/13/2020 08/26/2021 Heart disease (organic) 05/31/2012 08/26/20 21 Dyspnea 05/31/2012 12/19/2021 documented as of this encounter (statuses as of 04/17/2022) [facility]12-[facility]21 History of Past illness Narrative* Problem Noted Date Resolved Date Bacteremia 10/12/2021 12/19/2021 Overview: Last Assessment & Plan: - Blood and urine cx + for E. Coli - Improving, continue on planned antibiotic course: Cephalixin 1000 mg q8h through 10/15 - Afebrile, denies fever or chills on exam today Neuropathy 10/12/2021 12/19/2021 Overview: Last Assessment & Plan: - BLE neuropathy - Continue Lyrica 75 mg BID NSTEMI (non-ST elevated myocardial infarction) 0 02/06/2021 02/09/2021 Morbid obesity due to excess calories 11/30/2020 12/19/2021 Acute kidney injury superimposed on chronic kidn ey disease 11/30/2020 12/19/2021 CHF, acute on chronic 11/28/2020 08/26/2021 Lower extremity cellulitis 11/28/202012/19 Present for a month 10/17/2020 08/26/2021 Pneumonia due to COVID-19 virus 10/13/2020 08/26/2021 Heart disease (organic) 05/31/2012 08/26/20 21 Dyspnea 05/31/2012 12/19/2021 documented as of this encounter (statuses as of 05/10/2022) [facility]12[facility]21 History of Past illness Narrative* Problem Noted Date Resolved Date Bacteremia 10/12/2021 12/19/2021 Overview: Last Assessment & Plan: - Blood and urine cx + for E. Coli - Improving, continue on planned antibiotic course: Cephalixin 1000 mg q8h through 10/15 - Afebrile, denies fever or chills on exam today Neuropathy 10/12/2021 12/19/2021 Overview: Last Assessment & Plan: - BLE neuropathy - Continue Lyrica 75 mg BID NSTEMI (non-ST elevated myocardial infarction) 0 02/06/2021 02/09/2021 Morbid obesity due to excess calories 11/30/2020 12/19/2021 Acute kidney injury superimposed on chronic kidn ey disease 11/30/2020 12/19/2021 CHF, acute on chronic 11/28/2020 08/26/2021 Lower extremity cellulitis 11/28/202012/19 Present for a month 10/17/2020 08/26/2021 Pneumonia due to COVID-19 virus 10/13/2020 08/26/2021 Heart disease (organic) 05/31/2012 08/26/20 Dyspnea 05/31/2012 12/19/2021 documented as of this encounter (statuses as of 05/13/2022) [facility]12[facility]2021 History of Past illness Narrative* Problem Noted Date Resolved Date Bacteremia 10/12/2021 12/19/2021 Overview: Last Assessment & Plan: - Blood and urine cx + for E. Coli - Improving, continue on planned antibiotic course: Cephalixin 1000 mg q8h through 10/15 - Afebrile, denies fever or chills on exam today Neuropathy 10/12/2021 12/19/2021 Overview: Last Assessment & Plan: - BLE neuropathy - Continue Lyrica 75 mg BID NSTEMI (non-ST elevated myocardial infarction) 0 02/06/2021 02/09/2021 Morbid obesity due to excess calories 11/30/2020 12/19/2021 Acute kidney injury superimposed on chronic kidn ey disease 11/30/2020 12/19/2021 CHF, acute on chronic 11/28/2020 08/26/2021 Lower extremity cellulitis 11/28/202012/19 Present for a month 10/17/2020 08/26/2021 Pneumonia due to COVID-19 virus 10/13/2020 08/26/2021 Heart disease (organic) 05/31/2012 08/26/20 21 Dyspnea 05/31/2012 12/19/2021 documented as of this encounter (statuses as of 05/24/2022) [facility]12[facility]2021 History of Past illness Narrative* Problem Noted Date Resolved Date Bacteremia 10/12/2021 12/19/2021 Overview: Last Assessment & Plan: - Blood and urine cx + for E. Coli - Improving, continue on planned antibiotic course: Cephalixin 1000 mg q8h through 10/15 - Afebrile, denies fever or chills on exam today Neuropathy 10/12/2021 12/19/2021 Overview: Last Assessment & Plan: - BLE neuropathy - Continue Lyrica 75 mg BID NSTEMI (non-ST elevated myocardial infarction) 0 02/06/2021 02/09/2021 Morbid obesity due to excess calories 11/30/2020 12/19/2021 Acute kidney injury superimposed on chronic kidn ey disease 11/30/2020 12/19/2021 CHF, acute on chronic 11/28/2020 08/26/2021 Lower extremity cellulitis 11/28/202012/19 Present for a month 10/17/2020 08/26/2021 Pneumonia due to COVID-19 virus 10/13/2020 08/26/2021 Heart disease (organic) 05/31/2012 08/26/20 Dyspnea 05/31/2012 12/19/2021 documented as of this encounter (statuses as of 05/30/2022) [facility]12[facility]21 History of Past illness Narrative* Problem Noted Date Resolved Date Bacteremia 10/12/2021 12/19/2021 Overview: Last Assessment & Plan: - Blood and urine cx + for E. Coli - Improving, continue on planned antibiotic course: Cephalixin 1000 mg q8h through 10/15 - Afebrile, denies fever or chills on exam today Neuropathy 10/12/2021 12/19/2021 Overview: Last Assessment & Plan: - BLE neuropathy - Continue Lyrica 75 mg BID NSTEMI (non-ST elevated myocardial infarction) 0 02/06/2021 02/09/2021 Morbid obesity due to excess calories 11/30/2020 12/19/2021 Acute kidney injury superimposed on chronic kidn ey disease 11/30/2020 12/19/2021 CHF, acute on chronic 11/28/2020 08/26/2021 Lower extremity cellulitis 11/28/202012/19 Present for a month 10/17/2020 08/26/2021 Pneumonia due to COVID-19 virus 10/13/2020 08/26/2021 Heart disease (organic) 05/31/2012 08/26/20 21 Dyspnea 05/31/2012 12/19/2021 documented as of this encounter (statuses as of 06/09/2022) [facility]12[facility]21 History of Past illness Narrative* Problem Noted Date Resolved Date Bacteremia 10/12/2021 12/19/2021 Overview: Last Assessment & Plan: - Blood and urine cx + for E. Coli - Improving, continue on planned antibiotic course: Cephalixin 1000 mg q8h through 10/15 - Afebrile, denies fever or chills on exam today Neuropathy 10/12/2021 12/19/2021 Overview: Last Assessment & Plan: - BLE neuropathy - Continue Lyrica 75 mg BID NSTEMI (non-ST elevated myocardial infarction) 0 02/06/2021 02/09/2021 Morbid obesity due to excess calories 11/30/2020 12/19/2021 Acute kidney injury superimposed on chronic kidn ey disease 11/30/2020 12/19/2021 CHF, acute on chronic 11/28/2020 08/26/2021 Lower extremity cellulitis 11/28/202012/19 Present for a month 10/17/2020 08/26/2021 Pneumonia due to COVID-19 virus 10/13/2020 08/26/2021 Heart disease (organic) 05/31/2012 08/26/20 21 Dyspnea 05/31/2012 12/19/2021 documented as of this encounter (statuses as of 06/26/2022) [facility]12[facility]2021 History of Past illness Narrative* Problem Noted Date Resolved Date Bacteremia 10/12/2021 12/19/2021 Overview: Last Assessment & Plan: - Blood and urine cx + for E. Coli - Improving, continue on planned antibiotic course: Cephalixin 1000 mg q8h through 10/15 - Afebrile, denies fever or chills on exam today Neuropathy 10/12/2021 12/19/2021 Overview: Last Assessment & Plan: - BLE neuropathy - Continue Lyrica 75 mg BID NSTEMI (non-ST elevated myocardial infarction) 0 02/06/2021 02/09/2021 Morbid obesity due to excess calories 11/30/2020 12/19/2021 Acute kidney injury superimposed on chronic kidn ey disease 11/30/2020 12/19/2021 CHF, acute on chronic 11/28/2020 08/26/2021 Lower extremity cellulitis 11/28/202012/19 Present for a month 10/17/2020 08/26/2021 Pneumonia due to COVID-19 virus 10/13/2020 08/26/2021 Heart disease (organic) 05/31/2012 08/26/20 21 Dyspnea 05/31/2012 12/19/2021 documented as of this encounter (statuses as of 06/26/2022) [facility]12[facility]21 History of Past illness Narrative* Problem Noted Date Resolved Date Bacteremia 10/12/2021 12/19/2021 Overview: Last Assessment & Plan: - Blood and urine cx + for E. Coli - Improving, continue on planned antibiotic course: Cephalixin 1000 mg q8h through 10/15 - Afebrile, denies fever or chills on exam today Neuropathy 10/12/2021 12/19/2021 Overview: Last Assessment & Plan: - BLE neuropathy - Continue Lyrica 75 mg BID NSTEMI (non-ST elevated myocardial infarction) 0 02/06/2021 02/09/2021 Morbid obesity due to excess calories 11/30/2020 12/19/2021 Acute kidney injury superimposed on chronic kidn ey disease 11/30/2020 12/19/2021 CHF, acute on chronic 11/28/2020 08/26/2021 Lower extremity cellulitis 11/28/202012/19 Present for a month 10/17/2020 08/26/2021 Pneumonia due to COVID-19 virus 10/13/2020 08/26/2021 Heart disease (organic) 05/31/2012 08/26/20 21 Dyspnea 05/31/2012 12/19/2021 documented as of this encounter (statuses as of 06/26/2022) [facility] History of Past illness Narrative* Problem Noted Date Resolved Date Bacteremia 10/12/2021 12/19/2021 Overview: Last Assessment & Plan: - Blood and urine cx + for E. Coli - Improving, continue on planned antibiotic course: Cephalixin 1000 mg q8h through 10/15 - Afebrile, denies fever or chills on exam today Neuropathy 10/12/2021 12/19/2021 Overview: Last Assessment & Plan: - BLE neuropathy - Continue Lyrica 75 mg BID NSTEMI (non-ST elevated myocardial infarction) 0 02/06/2021 02/09/2021 Morbid obesity due to excess calories 11/30/2020 12/19/2021 Acute kidney injury superimposed on chronic kidn ey disease 11/30/2020 12/19/2021 CHF, acute on chronic 11/28/2020 08/26/2021 Lower extremity cellulitis 11/28/202012/19 Present for a month 10/17/2020 08/26/2021 Pneumonia due to COVID-19 virus 10/13/2020 08/26/2021 Heart disease (organic) 05/31/2012 08/26/20 21 Dyspnea 05/31/2012 12/19/2021 documented as of this encounter (statuses as of 06/27/2022) [facility] History of Past illness Narrative* Problem Noted Date Resolved Date Bacteremia 10/12/2021 12/19/2021 Overview: Last Assessment & Plan: - Blood and urine cx + for E. Coli - Improving, continue on planned antibiotic course: Cephalixin 1000 mg q8h through 10/15 - Afebrile, denies fever or chills on exam today Neuropathy 10/12/2021 12/19/2021 Overview: Last Assessment & Plan: - BLE neuropathy - Continue Lyrica 75 mg BID NSTEMI (non-ST elevated myocardial infarction) 0 02/06/2021 02/09/2021 Morbid obesity due to excess calories 11/30/2020 12/19/2021 Acute kidney injury superimposed on chronic kidn ey disease 11/30/2020 12/19/2021 CHF, acute on chronic 11/28/2020 08/26/2021 Lower extremity cellulitis 11/28/202012/19 Present for a month 10/17/2020 08/26/2021 Pneumonia due to COVID-19 virus 10/13/2020 08/26/2021 Heart disease (organic) 05/31/2012 08/26/20 21 Dyspnea 05/31/2012 12/19/2021 documented as of this encounter (statuses as of 06/30/2022) [facility] History of Past illness Narrative* Problem Noted Date Resolved Date Bacteremia 10/12/2021 12/19/2021 Overview: Last Assessment & Plan: - Blood and urine cx + for E. Coli - Improving, continue on planned antibiotic course: Cephalixin 1000 mg q8h through 10/15 - Afebrile, denies fever or chills on exam today Neuropathy 10/12/2021 12/19/2021 Overview: Last Assessment & Plan: - BLE neuropathy - Continue Lyrica 75 mg BID NSTEMI (non-ST elevated myocardial infarction) 0 02/06/2021 02/09/2021 Morbid obesity due to excess calories 11/30/2020 12/19/2021 Acute kidney injury superimposed on chronic kidn ey disease 11/30/2020 12/19/2021 CHF, acute on chronic 11/28/2020 08/26/2021 Lower extremity cellulitis 11/28/202012/19 Present for a month 10/17/2020 08/26/2021 Pneumonia due to COVID-19 virus 10/13/2020 08/26/2021 Heart disease (organic) 05/31/2012 08/26/20 21 Dyspnea 05/31/2012 12/19/2021 documented as of this encounter (statuses as of 07/05/2022) [facility] History of Past illness Narrative* Problem Noted Date Resolved Date Bacteremia 10/12/2021 12/19/2021 Overview: Last Assessment & Plan: - Blood and urine cx + for E. Coli - Improving, continue on planned antibiotic course: Cephalixin 1000 mg q8h through 10/15 - Afebrile, denies fever or chills on exam today Neuropathy 10/12/2021 12/19/2021 Overview: Last Assessment & Plan: - BLE neuropathy - Continue Lyrica 75 mg BID NSTEMI (non-ST elevated myocardial infarction) 0 02/06/2021 02/09/2021 Morbid obesity due to excess calories 11/30/2020 12/19/2021 Acute kidney injury superimposed on chronic kidn ey disease 11/30/2020 12/19/2021 CHF, acute on chronic 11/28/2020 08/26/2021 Lower extremity cellulitis 11/28/202012/19 Present for a month 10/17/2020 08/26/2021 Pneumonia due to COVID-19 virus 10/13/2020 08/26/2021 Heart disease (organic) 05/31/2012 08/26/20 21 Dyspnea 05/31/2012 12/19/2021 documented as of this encounter (statuses as of 07/05/2022) [facility] History of Past illness Narrative* Problem Noted Date Resolved Date Bacteremia 10/12/2021 12/19/2021 Overview: Last Assessment & Plan: - Blood and urine cx + for E. Coli - Improving, continue on planned antibiotic course: Cephalixin 1000 mg q8h through 10/15 - Afebrile, denies fever or chills on exam today Neuropathy 10/12/2021 12/19/2021 Overview: Last Assessment & Plan: - BLE neuropathy - Continue Lyrica 75 mg BID NSTEMI (non-ST elevated myocardial infarction) 0 02/06/2021 02/09/2021 Morbid obesity due to excess calories 11/30/2020 12/19/2021 Acute kidney injury superimposed on chronic kidn ey disease 11/30/2020 12/19/2021 CHF, acute on chronic 11/28/2020 08/26/2021 Lower extremity cellulitis 11/28/202012/19 Present for a month 10/17/2020 08/26/2021 Pneumonia due to COVID-19 virus 10/13/2020 08/26/2021 Heart disease (organic) 05/31/2012 08/26/20 21 Dyspnea 05/31/2012 12/19/2021 documented as of this encounter (statuses as of 07/06/2022) [facility] History of Past illness Narrative* Problem Noted Date Resolved Date Bacteremia 10/12/2021 12/19/2021 Overview: Last Assessment & Plan: - Blood and urine cx + for E. Coli - Improving, continue on planned antibiotic course: Cephalixin 1000 mg q8h through 10/15 - Afebrile, denies fever or chills on exam today Neuropathy 10/12/2021 12/19/2021 Overview: Last Assessment & Plan: - BLE neuropathy - Continue Lyrica 75 mg BID NSTEMI (non-ST elevated myocardial infarction) 0 02/06/2021 02/09/2021 Morbid obesity due to excess calories 11/30/2020 12/19/2021 Acute kidney injury superimposed on chronic kidn ey disease 11/30/2020 12/19/2021 CHF, acute on chronic 11/28/2020 08/26/2021 Lower extremity cellulitis 11/28/202012/19 Present for a month 10/17/2020 08/26/2021 Pneumonia due to COVID-19 virus 10/13/2020 08/26/2021 Heart disease (organic) 05/31/2012 08/26/20 21 Dyspnea 05/31/2012 12/19/2021 documented as of this encounter (statuses as of 07/07/2022) [facility] History of Past illness Narrative* Problem Noted Date Resolved Date Bacteremia 10/12/2021 12/19/2021 Overview: Last Assessment & Plan: - Blood and urine cx + for E. Coli - Improving, continue on planned antibiotic course: Cephalixin 1000 mg q8h through 10/15 - Afebrile, denies fever or chills on exam today Neuropathy 10/12/2021 12/19/2021 Overview: Last Assessment & Plan: - BLE neuropathy - Continue Lyrica 75 mg BID NSTEMI (non-ST elevated myocardial infarction) 0 02/06/2021 02/09/2021 Morbid obesity due to excess calories 11/30/2020 12/19/2021 Acute kidney injury superimposed on chronic kidn ey disease 11/30/2020 12/19/2021 CHF, acute on chronic 11/28/2020 08/26/2021 Lower extremity cellulitis 11/28/202012/19 Present for a month 10/17/2020 08/26/2021 Pneumonia due to COVID-19 virus 10/13/2020 08/26/2021 Heart disease (organic) 05/31/2012 08/26/20 21 Dyspnea 05/31/2012 12/19/2021 documented as of this encounter (statuses as of 07/17/2022) [facility] History of Past illness Narrative* Problem Noted Date Resolved Date Bacteremia 10/12/2021 12/19/2021 Overview: Last Assessment & Plan: - Blood and urine cx + for E. Coli - Improving, continue on planned antibiotic course: Cephalixin 1000 mg q8h through 10/15 - Afebrile, denies fever or chills on exam today Neuropathy 10/12/2021 12/19/2021 Overview: Last Assessment & Plan: - BLE neuropathy - Continue Lyrica 75 mg BID NSTEMI (non-ST elevated myocardial infarction) 0 02/06/2021 02/09/2021 Morbid obesity due to excess calories 11/30/2020 12/19/2021 Acute kidney injury superimposed on chronic kidn ey disease 11/30/2020 12/19/2021 CHF, acute on chronic 11/28/2020 08/26/2021 Lower extremity cellulitis 11/28/202012/19 Present for a month 10/17/2020 08/26/2021 Pneumonia due to COVID-19 virus 10/13/2020 08/26/2021 Heart disease (organic) 05/31/2012 08/26/20 21 Dyspnea 05/31/2012 12/19/2021 documented as of this encounter (statuses as of 07/20/2022) [facility] History of Past illness Narrative* Problem Noted Date Resolved Date Bacteremia 10/12/2021 12/19/2021 Overview: Last Assessment & Plan: - Blood and urine cx + for E. Coli - Improving, continue on planned antibiotic course: Cephalixin 1000 mg q8h through 10/15 - Afebrile, denies fever or chills on exam today Neuropathy 10/12/2021 12/19/2021 Overview: Last Assessment & Plan: - BLE neuropathy - Continue Lyrica 75 mg BID NSTEMI (non-ST elevated myocardial infarction) 0 02/06/2021 02/09/2021 Morbid obesity due to excess calories 11/30/2020 12/19/2021 Acute kidney injury superimposed on chronic kidn ey disease 11/30/2020 12/19/2021 CHF, acute on chronic 11/28/2020 08/26/2021 Lower extremity cellulitis 11/28/202012/19 Present for a month 10/17/2020 08/26/2021 Pneumonia due to COVID-19 virus 10/13/2020 08/26/2021 Heart disease (organic) 05/31/2012 08/26/20 21 Dyspnea 05/31/2012 12/19/2021 documented as of this encounter (statuses as of 07/24/2022) [facility] of Past illness Narrative* Problem Noted Date Resolved Date Bacteremia 10/12/2021 12/19/2021 Overview: Last Assessment & Plan: - Blood and urine cx + for E. Coli - Improving, continue on planned antibiotic course: Cephalixin 1000 mg q8h through 10/15 - Afebrile, denies fever or chills on exam today Neuropathy 10/12/2021 12/19/2021 Overview: Last Assessment & Plan: - BLE neuropathy - Continue Lyrica 75 mg BID NSTEMI (non-ST elevated myocardial infarction) 0 02/06/2021 02/09/2021 Morbid obesity due to excess calories 11/30/2020 12/19/2021 Acute kidney injury superimposed on chronic kidn ey disease 11/30/2020 12/19/2021 CHF, acute on chronic 11/28/2020 08/26/2021 Lower extremity cellulitis 11/28/202012/19 Present for a month 10/17/2020 08/26/2021 Pneumonia due to COVID-19 virus 10/13/2020 08/26/2021 Heart disease (organic) 05/31/2012 08/26/20 Dyspnea 05/31/2012 12/19/2021 documented as of this encounter (statuses as of 07/27/2022) [facility]21 History of Past illness Narrative* Problem Noted Date Resolved Date Bacteremia 10/12/2021 12/19/2021 Overview: Last Assessment & Plan: - Blood and urine cx + for E. Coli - Improving, continue on planned antibiotic course: Cephalixin 1000 mg q8h through 10/15 - Afebrile, denies fever or chills on exam today Neuropathy 10/12/2021 12/19/2021 Overview: Last Assessment & Plan: - BLE neuropathy - Continue Lyrica 75 mg BID NSTEMI (non-ST elevated myocardial infarction) 0 02/06/2021 02/09/2021 Morbid obesity due to excess calories 11/30/2020 12/19/2021 Acute kidney injury superimposed on chronic kidn ey disease 11/30/2020 12/19/2021 CHF, acute on chronic 11/28/2020 08/26/2021 Lower extremity cellulitis 11/28/202012/19 Present for a month 10/17/2020 08/26/2021 Pneumonia due to COVID-19 virus 10/13/2020 08/26/2021 Heart disease (organic) 05/31/2012 08/26/20 21 Dyspnea 05/31/2012 12/19/2021 documented as of this encounter (statuses as of 08/02/2022) [facility] History of Past illness Narrative* Problem Noted Date Resolved Date Bacteremia 10/12/2021 12/19/2021 Overview: Last Assessment & Plan: - Blood and urine cx + for E. Coli - Improving, continue on planned antibiotic course: Cephalixin 1000 mg q8h through 10/15 - Afebrile, denies fever or chills on exam today Neuropathy 10/12/2021 12/19/2021 Overview: Last Assessment & Plan: - BLE neuropathy - Continue Lyrica 75 mg BID NSTEMI (non-ST elevated myocardial infarction) 0 02/06/2021 02/09/2021 Morbid obesity due to excess calories 11/30/2020 12/19/2021 Acute kidney injury superimposed on chronic kidn ey disease 11/30/2020 12/19/2021 CHF, acute on chronic 11/28/2020 08/26/2021 Lower extremity cellulitis 11/28/202012/19 Present for a month 10/17/2020 08/26/2021 Pneumonia due to COVID-19 virus 10/13/2020 08/26/2021 Heart disease (organic) 05/31/2012 08/26/20 21 Dyspnea 05/31/2012 12/19/2021 documented as of this encounter (statuses as of 08/04/2022) [facility] History of Past illness Narrative* Problem Noted Date Resolved Date Bacteremia 10/12/2021 12/19/2021 Overview: Last Assessment & Plan: - Blood and urine cx + for E. Coli - Improving, continue on planned antibiotic course: Cephalixin 1000 mg q8h through 10/15 - Afebrile, denies fever or chills on exam today Neuropathy 10/12/2021 12/19/2021 Overview: Last Assessment & Plan: - BLE neuropathy - Continue Lyrica 75 mg BID NSTEMI (non-ST elevated myocardial infarction) 0 02/06/2021 02/09/2021 Morbid obesity due to excess calories 11/30/2020 12/19/2021 Acute kidney injury superimposed on chronic kidn ey disease 11/30/2020 12/19/2021 CHF, acute on chronic 11/28/2020 08/26/2021 Lower extremity cellulitis 11/28/202012/19 Present for a month 10/17/2020 08/26/2021 Pneumonia due to COVID-19 virus 10/13/2020 08/26/2021 Heart disease (organic) 05/31/2012 08/26/20 Dyspnea 05/31/2012 12/19/2021 documented as of this encounter (statuses as of 08/07/2022) [facility] History of Past illness Narrative* Problem Noted Date Resolved Date Bacteremia 10/12/2021 12/19/2021 Overview: Last Assessment & Plan: - Blood and urine cx + for E. Coli - Improving, continue on planned antibiotic course: Cephalixin 1000 mg q8h through 10/15 - Afebrile, denies fever or chills on exam today Neuropathy 10/12/2021 12/19/2021 Overview: Last Assessment & Plan: - BLE neuropathy - Continue Lyrica 75 mg BID NSTEMI (non-ST elevated myocardial infarction) 0 02/06/2021 02/09/2021 Morbid obesity due to excess calories 11/30/2020 12/19/2021 Acute kidney injury superimposed on chronic kidn ey disease 11/30/2020 12/19/2021 CHF, acute on chronic 11/28/2020 08/26/2021 Lower extremity cellulitis 11/28/202012/19 Present for a month 10/17/2020 08/26/2021 Pneumonia due to COVID-19 virus 10/13/2020 08/26/2021 Heart disease (organic) 05/31/2012 08/26/20 21 Dyspnea 05/31/2012 12/19/2021 documented as of this encounter (statuses as of 08/10/2022) [facility] History of Past illness Narrative* Problem Noted Date Resolved Date Bacteremia 10/12/2021 12/19/2021 Overview: Last Assessment & Plan: - Blood and urine cx + for E. Coli - Improving, continue on planned antibiotic course: Cephalixin 1000 mg q8h through 10/15 - Afebrile, denies fever or chills on exam today Neuropathy 10/12/2021 12/19/2021 Overview: Last Assessment & Plan: - BLE neuropathy - Continue Lyrica 75 mg BID NSTEMI (non-ST elevated myocardial infarction) 0 02/06/2021 02/09/2021 Morbid obesity due to excess calories 11/30/2020 12/19/2021 Acute kidney injury superimposed on chronic kidn ey disease 11/30/2020 12/19/2021 CHF, acute on chronic 11/28/2020 08/26/2021 Lower extremity cellulitis 11/28/202012/19 Present for a month 10/17/2020 08/26/2021 Pneumonia due to COVID-19 virus 10/13/2020 08/26/2021 Heart disease (organic) 05/31/2012 08/26/20 Dyspnea 05/31/2012 12/19/2021 documented as of this encounter (statuses as of 08/11/2022) [facility] History of Past illness Narrative* Problem Noted Date Resolved Date Bacteremia 10/12/2021 12/19/2021 Overview: Last Assessment & Plan: - Blood and urine cx + for E. Coli - Improving, continue on planned antibiotic course: Cephalixin 1000 mg q8h through 10/15 - Afebrile, denies fever or chills on exam today Neuropathy 10/12/2021 12/19/2021 Overview: Last Assessment & Plan: - BLE neuropathy - Continue Lyrica 75 mg BID NSTEMI (non-ST elevated myocardial infarction) 0 02/06/2021 02/09/2021 Morbid obesity due to excess calories 11/30/2020 12/19/2021 Acute kidney injury superimposed on chronic kidn ey disease 11/30/2020 12/19/2021 CHF, acute on chronic 11/28/2020 08/26/2021 Lower extremity cellulitis 11/28/202012/19 Present for a month 10/17/2020 08/26/2021 Pneumonia due to COVID-19 virus 10/13/2020 08/26/2021 Heart disease (organic) 05/31/2012 08/26/20 21 Dyspnea 05/31/2012 12/19/2021 documented as of this encounter (statuses as of 2022) [facility] History of Past illness Narrative* Problem Noted Date Resolved Date Bacteremia 10/12/2021 12/19/2021 Overview: Last Assessment & Plan: - Blood and urine cx + for E. Coli - Improving, continue on planned antibiotic course: Cephalixin 1000 mg q8h through 10/15 - Afebrile, denies fever or chills on exam today Neuropathy 10/12/2021 12/19/2021 Overview: Last Assessment & Plan: - BLE neuropathy - Continue Lyrica 75 mg BID NSTEMI (non-ST elevated myocardial infarction) 0 02/06/2021 02/09/2021 Morbid obesity due to excess calories 11/30/2020 12/19/2021 Acute kidney injury superimposed on chronic kidn ey disease 11/30/2020 12/19/2021 CHF, acute on chronic 11/28/2020 08/26/2021 Lower extremity cellulitis 11/28/202012/19 Present for a month 10/17/2020 08/26/2021 Pneumonia due to COVID-19 virus 10/13/2020 08/26/2021 Heart disease (organic) 05/31/2012 08/26/20 21 Dyspnea 05/31/2012 12/19/2021 documented as of this encounter (statuses as of 08/17/2022) [facility] History of Past illness Narrative* Problem Noted Date Resolved Date Bacteremia 10/12/2021 12/19/2021 Overview: Last Assessment & Plan: - Blood and urine cx + for E. Coli - Improving, continue on planned antibiotic course: Cephalixin 1000 mg q8h through 10/15 - Afebrile, denies fever or chills on exam today Neuropathy 10/12/2021 12/19/2021 Overview: Last Assessment & Plan: - BLE neuropathy - Continue Lyrica 75 mg BID NSTEMI (non-ST elevated myocardial infarction) 0 02/06/2021 02/09/2021 Morbid obesity due to excess calories 11/30/2020 12/19/2021 Acute kidney injury superimposed on chronic kidn ey disease 11/30/2020 12/19/2021 CHF, acute on chronic 11/28/2020 08/26/2021 Lower extremity cellulitis 11/28/202012/19 Present for a month 10/17/2020 08/26/2021 Pneumonia due to COVID-19 virus 10/13/2020 08/26/2021 Heart disease (organic) 05/31/2012 08/26/20 21 Dyspnea 05/31/2012 12/19/2021 documented as of this encounter (statuses as of 08/21/2022) [facility] History of Past illness Narrative* Problem Noted Date Resolved Date Bacteremia 10/12/2021 12/19/2021 Overview: Last Assessment & Plan: - Blood and urine cx + for E. Coli - Improving, continue on planned antibiotic course: Cephalixin 1000 mg q8h through 10/15 - Afebrile, denies fever or chills on exam today Neuropathy 10/12/2021 12/19/2021 Overview: Last Assessment & Plan: - BLE neuropathy - Continue Lyrica 75 mg BID NSTEMI (non-ST elevated myocardial infarction) 0 02/06/2021 02/09/2021 Morbid obesity due to excess calories 11/30/2020 12/19/2021 Acute kidney injury superimposed on chronic kidn ey disease 11/30/2020 12/19/2021 CHF, acute on chronic 11/28/2020 08/26/2021 Lower extremity cellulitis 11/28/202012/19 Present for a month 10/17/2020 08/26/2021 Pneumonia due to COVID-19 virus 10/13/2020 08/26/2021 Heart disease (organic) 05/31/2012 08/26/20 21 Dyspnea 05/31/2012 12/19/2021 documented as of this encounter (statuses as of 08/23/2022) [facility] History of Past illness Narrative* Problem Noted Date Resolved Date Bacteremia 10/12/2021 12/19/2021 Overview: Last Assessment & Plan: - Blood and urine cx + for E. Coli - Improving, continue on planned antibiotic course: Cephalixin 1000 mg q8h through 10/15 - Afebrile, denies fever or chills on exam today Neuropathy 10/12/2021 12/19/2021 Overview: Last Assessment & Plan: - BLE neuropathy - Continue Lyrica 75 mg BID NSTEMI (non-ST elevated myocardial infarction) 0 02/06/2021 02/09/2021 Morbid obesity due to excess calories 11/30/2020 12/19/2021 Acute kidney injury superimposed on chronic kidn ey disease 11/30/2020 12/19/2021 CHF, acute on chronic 11/28/2020 08/26/2021 Lower extremity cellulitis 11/28/202012/19 Present for a month 10/17/2020 08/26/2021 Pneumonia due to COVID-19 virus 10/13/2020 08/26/2021 Heart disease (organic) 05/31/2012 08/26/20 21 Dyspnea 05/31/2012 12/19/2021 documented as of this encounter (statuses as of 08/26/2022) [facility] History of Past illness Narrative* Problem Noted Date Resolved Date Bacteremia 10/12/2021 12/19/2021 Overview: Last Assessment & Plan: - Blood and urine cx + for E. Coli - Improving, continue on planned antibiotic course: Cephalixin 1000 mg q8h through 10/15 - Afebrile, denies fever or chills on exam today Neuropathy 10/12/2021 12/19/2021 Overview: Last Assessment & Plan: - BLE neuropathy - Continue Lyrica 75 mg BID NSTEMI (non-ST elevated myocardial infarction) 0 02/06/2021 02/09/2021 Morbid obesity due to excess calories 11/30/2020 12/19/2021 Acute kidney injury superimposed on chronic kidn ey disease 11/30/2020 12/19/2021 CHF, acute on chronic 11/28/2020 08/26/2021 Lower extremity cellulitis 11/28/202012/19 Present for a month 10/17/2020 08/26/2021 Pneumonia due to COVID-19 virus 10/13/2020 08/26/2021 Heart disease (organic) 05/31/2012 08/26/20 21 Dyspnea 05/31/2012 12/19/2021 documented as of this encounter (statuses as of 08/29/2022) [facility] History of Past illness Narrative* Problem Noted Date Resolved Date Bacteremia 10/12/2021 12/19/2021 Overview: Last Assessment & Plan: - Blood and urine cx + for E. Coli - Improving, continue on planned antibiotic course: Cephalixin 1000 mg q8h through 10/15 - Afebrile, denies fever or chills on exam today Neuropathy 10/12/2021 12/19/2021 Overview: Last Assessment & Plan: - BLE neuropathy - Continue Lyrica 75 mg BID NSTEMI (non-ST elevated myocardial infarction) 0 02/06/2021 02/09/2021 Morbid obesity due to excess calories 11/30/2020 12/19/2021 Acute kidney injury superimposed on chronic kidn ey disease 11/30/2020 12/19/2021 CHF, acute on chronic 11/28/2020 08/26/2021 Lower extremity cellulitis 11/28/202012/19 Present for a month 10/17/2020 08/26/2021 Pneumonia due to COVID-19 virus 10/13/2020 08/26/2021 Heart disease (organic) 05/31/2012 08/26/20 21 Dyspnea 05/31/2012 12/19/2021 documented as of this encounter (statuses as of 08/29/2022) [facility] History of Past illness Narrative* Problem Noted Date Resolved Date Bacteremia 10/12/2021 12/19/2021 Overview: Last Assessment & Plan: - Blood and urine cx + for E. Coli - Improving, continue on planned antibiotic course: Cephalixin 1000 mg q8h through 10/15 - Afebrile, denies fever or chills on exam today Neuropathy 10/12/2021 12/19/2021 Overview: Last Assessment & Plan: - BLE neuropathy - Continue Lyrica 75 mg BID NSTEMI (non-ST elevated myocardial infarction) 0 02/06/2021 02/09/2021 Morbid obesity due to excess calories 11/30/2020 12/19/2021 Acute kidney injury superimposed on chronic kidn ey disease 11/30/2020 12/19/2021 CHF, acute on chronic 11/28/2020 08/26/2021 Lower extremity cellulitis 11/28/202012/19 Present for a month 10/17/2020 08/26/2021 Pneumonia due to COVID-19 virus 10/13/2020 08/26/2021 Heart disease (organic) 05/31/2012 08/26/20 21 Dyspnea 05/31/2012 12/19/2021 documented as of this encounter (statuses as of 08/30/2022) [facility] History of Past illness Narrative* Problem Noted Date Resolved Date Bacteremia 10/12/2021 12/19/2021 Overview: Last Assessment & Plan: - Blood and urine cx + for E. Coli - Improving, continue on planned antibiotic course: Cephalixin 1000 mg q8h through 10/15 - Afebrile, denies fever or chills on exam today Neuropathy 10/12/2021 12/19/2021 Overview: Last Assessment & Plan: - BLE neuropathy - Continue Lyrica 75 mg BID NSTEMI (non-ST elevated myocardial infarction) 0 02/06/2021 02/09/2021 Morbid obesity due to excess calories 11/30/2020 12/19/2021 Acute kidney injury superimposed on chronic kidn ey disease 11/30/2020 12/19/2021 CHF, acute on chronic 11/28/2020 08/26/2021 Lower extremity cellulitis 11/28/202012/19 Present for a month 10/17/2020 08/26/2021 Pneumonia due to COVID-19 virus 10/13/2020 08/26/2021 Heart disease (organic) 05/31/2012 08/26/20 21 Dyspnea 05/31/2012 12/19/2021 documented as of this encounter (statuses as of 08/31/2022) [facility] History of Past illness Narrative* Problem Noted Date Resolved Date Bacteremia 10/12/2021 12/19/2021 Overview: Last Assessment & Plan: - Blood and urine cx + for E. Coli - Improving, continue on planned antibiotic course: Cephalixin 1000 mg q8h through 10/15 - Afebrile, denies fever or chills on exam today Neuropathy 10/12/2021 12/19/2021 Overview: Last Assessment & Plan: - BLE neuropathy - Continue Lyrica 75 mg BID NSTEMI (non-ST elevated myocardial infarction) 0 02/06/2021 02/09/2021 Morbid obesity due to excess calories 11/30/2020 12/19/2021 Acute kidney injury superimposed on chronic kidn ey disease 11/30/2020 12/19/2021 CHF, acute on chronic 11/28/2020 08/26/2021 Lower extremity cellulitis 11/28/202012/19 Present for a month 10/17/2020 08/26/2021 Pneumonia due to COVID-19 virus 10/13/2020 08/26/2021 Heart disease (organic) 05/31/2012 08/26/20 21 Dyspnea 05/31/2012 12/19/2021 documented as of this encounter (statuses as of 09/01/2022) [facility] History of Past illness Narrative* Problem Noted Date Resolved Date Bacteremia 10/12/2021 12/19/2021 Overview: Last Assessment & Plan: - Blood and urine cx + for E. Coli - Improving, continue on planned antibiotic course: Cephalixin 1000 mg q8h through 10/15 - Afebrile, denies fever or chills on exam today Neuropathy 10/12/2021 12/19/2021 Overview: Last Assessment & Plan: - BLE neuropathy - Continue Lyrica 75 mg BID NSTEMI (non-ST elevated myocardial infarction) 0 02/06/2021 02/09/2021 Morbid obesity due to excess calories 11/30/2020 12/19/2021 Acute kidney injury superimposed on chronic kidn ey disease 11/30/2020 12/19/2021 CHF, acute on chronic 11/28/2020 08/26/2021 Lower extremity cellulitis 11/28/202012/19 Present for a month 10/17/2020 08/26/2021 Pneumonia due to COVID-19 virus 10/13/2020 08/26/2021 Heart disease (organic) 05/31/2012 08/26/20 21 Dyspnea 05/31/2012 12/19/2021 documented as of this encounter (statuses as of 09/08/2022) [facility] History of Past illness Narrative* Problem Noted Date Resolved Date Bacteremia 10/12/2021 12/19/2021 Overview: Last Assessment & Plan: - Blood and urine cx + for E. Coli - Improving, continue on planned antibiotic course: Cephalixin 1000 mg q8h through 10/15 - Afebrile, denies fever or chills on exam today Neuropathy 10/12/2021 12/19/2021 Overview: Last Assessment & Plan: - BLE neuropathy - Continue Lyrica 75 mg BID NSTEMI (non-ST elevated myocardial infarction) 0 02/06/2021 02/09/2021 Morbid obesity due to excess calories 11/30/2020 12/19/2021 Acute kidney injury superimposed on chronic kidn ey disease 11/30/2020 12/19/2021 CHF, acute on chronic 11/28/2020 08/26/2021 Lower extremity cellulitis 11/28/202012/19 Present for a month 10/17/2020 08/26/2021 Pneumonia due to COVID-19 virus 10/13/2020 08/26/2021 Heart disease (organic) 05/31/2012 08/26/20 21 Dyspnea 05/31/2012 12/19/2021 documented as of this encounter (statuses as of 09/08/2022) [facility] History of Past illness Narrative* Problem Noted Date Resolved Date Bacteremia 10/12/2021 12/19/2021 Overview: Last Assessment & Plan: - Blood and urine cx + for E. Coli - Improving, continue on planned antibiotic course: Cephalixin 1000 mg q8h through 10/15 - Afebrile, denies fever or chills on exam today Neuropathy 10/12/2021 12/19/2021 Overview: Last Assessment & Plan: - BLE neuropathy - Continue Lyrica 75 mg BID NSTEMI (non-ST elevated myocardial infarction) 0 02/06/2021 02/09/2021 Morbid obesity due to excess calories 11/30/2020 12/19/2021 Acute kidney injury superimposed on chronic kidn ey disease 11/30/2020 12/19/2021 CHF, acute on chronic 11/28/2020 08/26/2021 Lower extremity cellulitis 11/28/202012/19 Present for a month 10/17/2020 08/26/2021 Pneumonia due to COVID-19 virus 10/13/2020 08/26/2021 Heart disease (organic) 05/31/2012 08/26/20 21 Dyspnea 05/31/2012 12/19/2021 documented as of this encounter (statuses as of 09/12/2022) [facility] History of Past illness Narrative* Problem Noted Date Resolved Date Bacteremia 10/12/2021 12/19/2021 Overview: Last Assessment & Plan: - Blood and urine cx + for E. Coli - Improving, continue on planned antibiotic course: Cephalixin 1000 mg q8h through 10/15 - Afebrile, denies fever or chills on exam today Neuropathy 10/12/2021 12/19/2021 Overview: Last Assessment & Plan: - BLE neuropathy - Continue Lyrica 75 mg BID NSTEMI (non-ST elevated myocardial infarction) 0 02/06/2021 02/09/2021 Morbid obesity due to excess calories 11/30/2020 12/19/2021 Acute kidney injury superimposed on chronic kidn ey disease 11/30/2020 12/19/2021 CHF, acute on chronic 11/28/2020 08/26/2021 Lower extremity cellulitis 11/28/202012/19 Present for a month 10/17/2020 08/26/2021 Pneumonia due to COVID-19 virus 10/13/2020 08/26/2021 Heart disease (organic) 05/31/2012 08/26/20 21 Dyspnea 05/31/2012 12/19/2021 documented as of this encounter (statuses as of 09/25/2022) [facility] History of Past illness Narrative* Problem Noted Date Resolved Date Bacteremia 10/12/2021 12/19/2021 Overview: Last Assessment & Plan: - Blood and urine cx + for E. Coli - Improving, continue on planned antibiotic course: Cephalixin 1000 mg q8h through 10/15 - Afebrile, denies fever or chills on exam today Neuropathy 10/12/2021 12/19/2021 Overview: Last Assessment & Plan: - BLE neuropathy - Continue Lyrica 75 mg BID NSTEMI (non-ST elevated myocardial infarction) 0 02/06/2021 02/09/2021 Morbid obesity due to excess calories 11/30/2020 12/19/2021 Acute kidney injury superimposed on chronic kidn ey disease 11/30/2020 12/19/2021 CHF, acute on chronic 11/28/2020 08/26/2021 Lower extremity cellulitis 11/28/202012/19 Present for a month 10/17/2020 08/26/2021 Pneumonia due to COVID-19 virus 10/13/2020 08/26/2021 Heart disease (organic) 05/31/2012 08/26/20 Dyspnea 05/31/2012 12/19/2021 documented as of this encounter (statuses as of 09/28/2022) [facility] History of Past illness Narrative* Problem Noted Date Resolved Date Bacteremia 10/12/2021 12/19/2021 Overview: Last Assessment & Plan: - Blood and urine cx + for E. Coli - Improving, continue on planned antibiotic course: Cephalixin 1000 mg q8h through 10/15 - Afebrile, denies fever or chills on exam today Neuropathy 10/12/2021 12/19/2021 Overview: Last Assessment & Plan: - BLE neuropathy - Continue Lyrica 75 mg BID NSTEMI (non-ST elevated myocardial infarction) 0 02/06/2021 02/09/2021 Morbid obesity due to excess calories 11/30/2020 12/19/2021 Acute kidney injury superimposed on chronic kidn ey disease 11/30/2020 12/19/2021 CHF, acute on chronic 11/28/2020 08/26/2021 Lower extremity cellulitis 11/28/202012/19 Present for a month 10/17/2020 08/26/2021 Pneumonia due to COVID-19 virus 10/13/2020 08/26/2021 Heart disease (organic) 05/31/2012 08/26/20 21 Dyspnea 05/31/2012 12/19/2021 documented as of this encounter (statuses as of 09/29/2022) [facility] History of Past illness Narrative* Problem Noted Date Resolved Date Bacteremia 10/12/2021 12/19/2021 Overview: Last Assessment & Plan: - Blood and urine cx + for E. Coli - Improving, continue on planned antibiotic course: Cephalixin 1000 mg q8h through 10/15 - Afebrile, denies fever or chills on exam today Neuropathy 10/12/2021 12/19/2021 Overview: Last Assessment & Plan: - BLE neuropathy - Continue Lyrica 75 mg BID NSTEMI (non-ST elevated myocardial infarction) 0 02/06/2021 02/09/2021 Morbid obesity due to excess calories 11/30/2020 12/19/2021 Acute kidney injury superimposed on chronic kidn ey disease 11/30/2020 12/19/2021 CHF, acute on chronic 11/28/2020 08/26/2021 Lower extremity cellulitis 11/28/202012/19 Present for a month 10/17/2020 08/26/2021 Pneumonia due to COVID-19 virus 10/13/2020 08/26/2021 Heart disease (organic) 05/31/2012 08/26/20 21 Dyspnea 05/31/2012 12/19/2021 documented as of this encounter (statuses as of 10/02/2022) [facility] of Past illness Narrative* Problem Noted Date Resolved Date Bacteremia 10/12/2021 12/19/2021 Overview: Last Assessment & Plan: - Blood and urine cx + for E. Coli - Improving, continue on planned antibiotic course: Cephalixin 1000 mg q8h through 10/15 - Afebrile, denies fever or chills on exam today Neuropathy 10/12/2021 12/19/2021 Overview: Last Assessment & Plan: - BLE neuropathy - Continue Lyrica 75 mg BID NSTEMI (non-ST elevated myocardial infarction) 0 02/06/2021 02/09/2021 Morbid obesity due to excess calories 11/30/2020 12/19/2021 Acute kidney injury superimposed on chronic kidn ey disease 11/30/2020 12/19/2021 CHF, acute on chronic 11/28/2020 08/26/2021 Lower extremity cellulitis 11/28/202012/19 Present for a month 10/17/2020 08/26/2021 Pneumonia due to COVID-19 virus 10/13/2020 08/26/2021 Heart disease (organic) 05/31/2012 08/26/20 21 Dyspnea 05/31/2012 12/19/2021 documented as of this encounter (statuses as of 10/04/2022) [facility] of Past illness Narrative* Problem Noted Date Resolved Date Bacteremia 10/12/2021 12/19/2021 Overview: Last Assessment & Plan: - Blood and urine cx + for E. Coli - Improving, continue on planned antibiotic course: Cephalixin 1000 mg q8h through 10/15 - Afebrile, denies fever or chills on exam today Neuropathy 10/12/2021 12/19/2021 Overview: Last Assessment & Plan: - BLE neuropathy - Continue Lyrica 75 mg BID NSTEMI (non-ST elevated myocardial infarction) 0 02/06/2021 02/09/2021 Morbid obesity due to excess calories 11/30/2020 12/19/2021 Acute kidney injury superimposed on chronic kidn ey disease 11/30/2020 12/19/2021 CHF, acute on chronic 11/28/2020 08/26/2021 Lower extremity cellulitis 11/28/202012/19 Present for a month 10/17/2020 08/26/2021 Pneumonia due to COVID-19 virus 10/13/2020 08/26/2021 Heart disease (organic) 05/31/2012 08/26/20 21 Dyspnea 05/31/2012 12/19/2021 documented as of this encounter (statuses as of 10/06/2022) [facility]21 History of Past illness Narrative* Problem Noted Date Resolved Date Bacteremia 10/12/2021 12/19/2021 Overview: Last Assessment & Plan: - Blood and urine cx + for E. Coli - Improving, continue on planned antibiotic course: Cephalixin 1000 mg q8h through 10/15 - Afebrile, denies fever or chills on exam today Neuropathy 10/12/2021 12/19/2021 Overview: Last Assessment & Plan: - BLE neuropathy - Continue Lyrica 75 mg BID NSTEMI (non-ST elevated myocardial infarction) 0 02/06/2021 02/09/2021 Morbid obesity due to excess calories 11/30/2020 12/19/2021 Acute kidney injury superimposed on chronic kidn ey disease 11/30/2020 12/19/2021 CHF, acute on chronic 11/28/2020 08/26/2021 Lower extremity cellulitis 11/28/202012/19 Present for a month 10/17/2020 08/26/2021 Pneumonia due to COVID-19 virus 10/13/2020 08/26/2021 Heart disease (organic) 05/31/2012 08/26/20 21 Dyspnea 05/31/2012 12/19/2021 documented as of this encounter (statuses as of 10/06/2022) [facility]21 History of Past illness Narrative* Problem Noted Date Resolved Date Bacteremia 10/12/2021 12/19/2021 Overview: Last Assessment & Plan: - Blood and urine cx + for E. Coli - Improving, continue on planned antibiotic course: Cephalixin 1000 mg q8h through 10/15 - Afebrile, denies fever or chills on exam today Neuropathy 10/12/2021 12/19/2021 Overview: Last Assessment & Plan: - BLE neuropathy - Continue Lyrica 75 mg BID NSTEMI (non-ST elevated myocardial infarction) 0 02/06/2021 02/09/2021 Morbid obesity due to excess calories 11/30/2020 12/19/2021 Acute kidney injury superimposed on chronic kidn ey disease 11/30/2020 12/19/2021 CHF, acute on chronic 11/28/2020 08/26/2021 Lower extremity cellulitis 11/28/202012/19 Present for a month 10/17/2020 08/26/2021 Pneumonia due to COVID-19 virus 10/13/2020 08/26/2021 Heart disease (organic) 05/31/2012 08/26/20 21 Dyspnea 05/31/2012 12/19/2021 documented as of this encounter (statuses as of 10/12/2022) [facility] History of Past illness Narrative* Problem Noted Date Resolved Date Bacteremia 10/12/2021 12/19/2021 Overview: Last Assessment & Plan: - Blood and urine cx + for E. Coli - Improving, continue on planned antibiotic course: Cephalixin 1000 mg q8h through 10/15 - Afebrile, denies fever or chills on exam today Neuropathy 10/12/2021 12/19/2021 Overview: Last Assessment & Plan: - BLE neuropathy - Continue Lyrica 75 mg BID NSTEMI (non-ST elevated myocardial infarction) 0 02/06/2021 02/09/2021 Morbid obesity due to excess calories 11/30/2020 12/19/2021 Acute kidney injury superimposed on chronic kidn ey disease 11/30/2020 12/19/2021 CHF, acute on chronic 11/28/2020 08/26/2021 Lower extremity cellulitis 11/28/202012/19 Present for a month 10/17/2020 08/26/2021 Pneumonia due to COVID-19 virus 10/13/2020 08/26/2021 Heart disease (organic) 05/31/2012 08/26/20 21 Dyspnea 05/31/2012 12/19/2021 documented as of this encounter (statuses as of 11/02/2022) [facility] History of Past illness Narrative* Problem Noted Date Resolved Date Bacteremia 10/12/2021 12/19/2021 Overview: Last Assessment & Plan: - Blood and urine cx + for E. Coli - Improving, continue on planned antibiotic course: Cephalixin 1000 mg q8h through 10/15 - Afebrile, denies fever or chills on exam today Neuropathy 10/12/2021 12/19/2021 Overview: Last Assessment & Plan: - BLE neuropathy - Continue Lyrica 75 mg BID NSTEMI (non-ST elevated myocardial infarction) 0 02/06/2021 02/09/2021 Morbid obesity due to excess calories 11/30/2020 12/19/2021 Acute kidney injury superimposed on chronic kidn ey disease 11/30/2020 12/19/2021 CHF, acute on chronic 11/28/2020 08/26/2021 Lower extremity cellulitis 11/28/202012/19 Present for a month 10/17/2020 08/26/2021 Pneumonia due to COVID-19 virus 10/13/2020 08/26/2021 Heart disease (organic) 05/31/2012 08/26/20 Dyspnea 05/31/2012 12/19/2021 documented as of this encounter (statuses as of 11/02/2022) [facility] History of Past illness Narrative* Problem Noted Date Resolved Date Bacteremia 10/12/2021 12/19/2021 Overview: Last Assessment & Plan: - Blood and urine cx + for E. Coli - Improving, continue on planned antibiotic course: Cephalixin 1000 mg q8h through 10/15 - Afebrile, denies fever or chills on exam today Neuropathy 10/12/2021 12/19/2021 Overview: Last Assessment & Plan: - BLE neuropathy - Continue Lyrica 75 mg BID NSTEMI (non-ST elevated myocardial infarction) 0 02/06/2021 02/09/2021 Morbid obesity due to excess calories 11/30/2020 12/19/2021 Acute kidney injury superimposed on chronic kidn ey disease 11/30/2020 12/19/2021 CHF, acute on chronic 11/28/2020 08/26/2021 Lower extremity cellulitis 11/28/202012/19 Present for a month 10/17/2020 08/26/2021 Pneumonia due to COVID-19 virus 10/13/2020 08/26/2021 Heart disease (organic) 05/31/2012 08/26/20 21 Dyspnea 05/31/2012 12/19/2021 documented as of this encounter (statuses as of 11/03/2022) [facility] History of Past illness Narrative* Problem Noted Date Resolved Date Bacteremia 10/12/2021 12/19/2021 Overview: Last Assessment & Plan: - Blood and urine cx + for E. Coli - Improving, continue on planned antibiotic course: Cephalixin 1000 mg q8h through 10/15 - Afebrile, denies fever or chills on exam today Neuropathy 10/12/2021 12/19/2021 Overview: Last Assessment & Plan: - BLE neuropathy - Continue Lyrica 75 mg BID NSTEMI (non-ST elevated myocardial infarction) 0 02/06/2021 02/09/2021 Morbid obesity due to excess calories 11/30/2020 12/19/2021 Acute kidney injury superimposed on chronic kidn ey disease 11/30/2020 12/19/2021 CHF, acute on chronic 11/28/2020 08/26/2021 Lower extremity cellulitis 11/28/202012/19 Present for a month 10/17/2020 08/26/2021 Pneumonia due to COVID-19 virus 10/13/2020 08/26/2021 Heart disease (organic) 05/31/2012 08/26/20 21 Dyspnea 05/31/2012 12/19/2021 documented as of this encounter (statuses as of 11/09/2022) [facility] History of Past illness Narrative* Problem Noted Date Resolved Date Bacteremia 10/12/2021 12/19/2021 Overview: Last Assessment & Plan: - Blood and urine cx + for E. Coli - Improving, continue on planned antibiotic course: Cephalixin 1000 mg q8h through 10/15 - Afebrile, denies fever or chills on exam today Neuropathy 10/12/2021 12/19/2021 Overview: Last Assessment & Plan: - BLE neuropathy - Continue Lyrica 75 mg BID NSTEMI (non-ST elevated myocardial infarction) 0 02/06/2021 02/09/2021 Morbid obesity due to excess calories 11/30/2020 12/19/2021 Acute kidney injury superimposed on chronic kidn ey disease 11/30/2020 12/19/2021 CHF, acute on chronic 11/28/2020 08/26/2021 Lower extremity cellulitis 11/28/202012/19 Present for a month 10/17/2020 08/26/2021 Pneumonia due to COVID-19 virus 10/13/2020 08/26/2021 Heart disease (organic) 05/31/2012 08/26/20 21 Dyspnea 05/31/2012 12/19/2021 documented as of this encounter (statuses as of 11/10/2022) [facility] History of Past illness Narrative* Problem Noted Date Resolved Date Bacteremia 10/12/2021 12/19/2021 Overview: Last Assessment & Plan: - Blood and urine cx + for E. Coli - Improving, continue on planned antibiotic course: Cephalixin 1000 mg q8h through 10/15 - Afebrile, denies fever or chills on exam today Neuropathy 10/12/2021 12/19/2021 Overview: Last Assessment & Plan: - BLE neuropathy - Continue Lyrica 75 mg BID NSTEMI (non-ST elevated myocardial infarction) 0 02/06/2021 02/09/2021 Morbid obesity due to excess calories 11/30/2020 12/19/2021 Acute kidney injury superimposed on chronic kidn ey disease 11/30/2020 12/19/2021 CHF, acute on chronic 11/28/2020 08/26/2021 Lower extremity cellulitis 11/28/202012/19 Present for a month 10/17/2020 08/26/2021 Pneumonia due to COVID-19 virus 10/13/2020 08/26/2021 Heart disease (organic) 05/31/2012 08/26/20 21 Dyspnea 05/31/2012 12/19/2021 documented as of this encounter (statuses as of 11/20/2022) [facility] History of Past illness Narrative* Problem Noted Date Resolved Date Bacteremia 10/12/2021 12/19/2021 Overview: Last Assessment & Plan: - Blood and urine cx + for E. Coli - Improving, continue on planned antibiotic course: Cephalixin 1000 mg q8h through 10/15 - Afebrile, denies fever or chills on exam today Neuropathy 10/12/2021 12/19/2021 Overview: Last Assessment & Plan: - BLE neuropathy - Continue Lyrica 75 mg BID NSTEMI (non-ST elevated myocardial infarction) 0 02/06/2021 02/09/2021 Morbid obesity due to excess calories 11/30/2020 12/19/2021 Acute kidney injury superimposed on chronic kidn ey disease 11/30/2020 12/19/2021 CHF, acute on chronic 11/28/2020 08/26/2021 Lower extremity cellulitis 11/28/202012/19 Present for a month 10/17/2020 08/26/2021 Pneumonia due to COVID-19 virus 10/13/2020 08/26/2021 Heart disease (organic) 05/31/2012 08/26/20 21 Dyspnea 05/31/2012 12/19/2021 documented as of this encounter (statuses as of 11/29/2022) [facility] History of Past illness Narrative* Problem Noted Date Resolved Date Bacteremia 10/12/2021 12/19/2021 Overview: Last Assessment & Plan: - Blood and urine cx + for E. Coli - Improving, continue on planned antibiotic course: Cephalixin 1000 mg q8h through 10/15 - Afebrile, denies fever or chills on exam today Neuropathy 10/12/2021 12/19/2021 Overview: Last Assessment & Plan: - BLE neuropathy - Continue Lyrica 75 mg BID NSTEMI (non-ST elevated myocardial infarction) 0 02/06/2021 02/09/2021 Morbid obesity due to excess calories 11/30/2020 12/19/2021 Acute kidney injury superimposed on chronic kidn ey disease 11/30/2020 12/19/2021 CHF, acute on chronic 11/28/2020 08/26/2021 Lower extremity cellulitis 11/28/202012/19 Present for a month 10/17/2020 08/26/2021 Pneumonia due to COVID-19 virus 10/13/2020 08/26/2021 Heart disease (organic) 05/31/2012 08/26/20 21 Dyspnea 05/31/2012 12/19/2021 documented as of this encounter (statuses as of 12/07/2022) [facility] History of Past illness Narrative* Problem Noted Date Resolved Date Bacteremia 10/12/2021 12/19/2021 Overview: Last Assessment & Plan: - Blood and urine cx + for E. Coli - Improving, continue on planned antibiotic course: Cephalixin 1000 mg q8h through 10/15 - Afebrile, denies fever or chills on exam today Neuropathy 10/12/2021 12/19/2021 Overview: Last Assessment & Plan: - BLE neuropathy - Continue Lyrica 75 mg BID NSTEMI (non-ST elevated myocardial infarction) 0 02/06/2021 02/09/2021 Morbid obesity due to excess calories 11/30/2020 12/19/2021 Acute kidney injury superimposed on chronic kidn ey disease 11/30/2020 12/19/2021 CHF, acute on chronic 11/28/2020 08/26/2021 Lower extremity cellulitis 11/28/202012/19 Present for a month 10/17/2020 08/26/2021 Pneumonia due to COVID-19 virus 10/13/2020 08/26/2021 Heart disease (organic) 05/31/2012 08/26/20 21 Dyspnea 05/31/2012 12/19/2021 documented as of this encounter (statuses as of 12/19/2022) [facility] History of Past illness Narrative* Problem Noted Date Resolved Date Bacteremia 10/12/2021 12/19/2021 Overview: Last Assessment & Plan: - Blood and urine cx + for E. Coli - Improving, continue on planned antibiotic course: Cephalixin 1000 mg q8h through 10/15 - Afebrile, denies fever or chills on exam today Neuropathy 10/12/2021 12/19/2021 Overview: Last Assessment & Plan: - BLE neuropathy - Continue Lyrica 75 mg BID NSTEMI (non-ST elevated myocardial infarction) 0 02/06/2021 02/09/2021 Morbid obesity due to excess calories 11/30/2020 12/19/2021 Acute kidney injury superimposed on chronic kidn ey disease 11/30/2020 12/19/2021 CHF, acute on chronic 11/28/2020 08/26/2021 Lower extremity cellulitis 11/28/202012/19 Present for a month 10/17/2020 08/26/2021 Pneumonia due to COVID-19 virus 10/13/2020 08/26/2021 Heart disease (organic) 05/31/2012 08/26/20 21 Dyspnea 05/31/2012 12/19/2021 documented as of this encounter (statuses as of 12/25/2022) [facility] History of Past illness Narrative* Problem Noted Date Resolved Date Bacteremia 10/12/2021 12/19/2021 Overview: Last Assessment & Plan: - Blood and urine cx + for E. Coli - Improving, continue on planned antibiotic course: Cephalixin 1000 mg q8h through 10/15 - Afebrile, denies fever or chills on exam today Neuropathy 10/12/2021 12/19/2021 Overview: Last Assessment & Plan: - BLE neuropathy - Continue Lyrica 75 mg BID NSTEMI (non-ST elevated myocardial infarction) 0 02/06/2021 02/09/2021 Morbid obesity due to excess calories 11/30/2020 12/19/2021 Acute kidney injury superimposed on chronic kidn ey disease 11/30/2020 12/19/2021 CHF, acute on chronic 11/28/2020 08/26/2021 Lower extremity cellulitis 11/28/202012/19 Present for a month 10/17/2020 08/26/2021 Pneumonia due to COVID-19 virus 10/13/2020 08/26/2021 Heart disease (organic) 05/31/2012 08/26/20 21 Dyspnea 05/31/2012 12/19/2021 documented as of this encounter (statuses as of 01/05/2023) [facility] History of Past illness Narrative* Problem Noted Date Resolved Date Bacteremia 10/12/2021 12/19/2021 Overview: Last Assessment & Plan: - Blood and urine cx + for E. Coli - Improving, continue on planned antibiotic course: Cephalixin 1000 mg q8h through 10/15 - Afebrile, denies fever or chills on exam today Neuropathy 10/12/2021 12/19/2021 Overview: Last Assessment & Plan: - BLE neuropathy - Continue Lyrica 75 mg BID NSTEMI (non-ST elevated myocardial infarction) 0 02/06/2021 02/09/2021 Morbid obesity due to excess calories 11/30/2020 12/19/2021 Acute kidney injury superimposed on chronic kidn ey disease 11/30/2020 12/19/2021 CHF, acute on chronic 11/28/2020 08/26/2021 Lower extremity cellulitis 11/28/202012/19 Present for a month 10/17/2020 08/26/2021 Pneumonia due to COVID-19 virus 10/13/2020 08/26/2021 Heart disease (organic) 05/31/2012 08/26/20 21 Dyspnea 05/31/2012 12/19/2021 documented as of this encounter (statuses as of 01/09/2023) [facility] History of Past illness Narrative* Problem Noted Date Resolved Date Bacteremia 10/12/2021 12/19/2021 Overview: Last Assessment & Plan: - Blood and urine cx + for E. Coli - Improving, continue on planned antibiotic course: Cephalixin 1000 mg q8h through 10/15 - Afebrile, denies fever or chills on exam today Neuropathy 10/12/2021 12/19/2021 Overview: Last Assessment & Plan: - BLE neuropathy - Continue Lyrica 75 mg BID NSTEMI (non-ST elevated myocardial infarction) 0 02/06/2021 02/09/2021 Morbid obesity due to excess calories 11/30/2020 12/19/2021 Acute kidney injury superimposed on chronic kidn ey disease 11/30/2020 12/19/2021 CHF, acute on chronic 11/28/2020 08/26/2021 Lower extremity cellulitis 11/28/202012/19 Present for a month 10/17/2020 08/26/2021 Pneumonia due to COVID-19 virus 10/13/2020 08/26/2021 Heart disease (organic) 05/31/2012 08/26/20 21 Dyspnea 05/31/2012 12/19/2021 documented as of this encounter (statuses as of 01/10/2023) [facility] History of Past illness Narrative* Problem Noted Date Resolved Date Bacteremia 10/12/2021 12/19/2021 Overview: Last Assessment & Plan: - Blood and urine cx + for E. Coli - Improving, continue on planned antibiotic course: Cephalixin 1000 mg q8h through 10/15 - Afebrile, denies fever or chills on exam today Neuropathy 10/12/2021 12/19/2021 Overview: Last Assessment & Plan: - BLE neuropathy - Continue Lyrica 75 mg BID NSTEMI (non-ST elevated myocardial infarction) 0 02/06/2021 02/09/2021 Morbid obesity due to excess calories 11/30/2020 12/19/2021 Acute kidney injury superimposed on chronic kidn ey disease 11/30/2020 12/19/2021 CHF, acute on chronic 11/28/2020 08/26/2021 Lower extremity cellulitis 11/28/202012/19 Present for a month 10/17/2020 08/26/2021 Pneumonia due to COVID-19 virus 10/13/2020 08/26/2021 Heart disease (organic) 05/31/2012 08/26/20 21 Dyspnea 05/31/2012 12/19/2021 documented as of this encounter (statuses as of 01/10/2023) [facility] History of Past illness Narrative* Problem Noted Date Resolved Date Bacteremia 10/12/2021 12/19/2021 Overview: Last Assessment & Plan: - Blood and urine cx + for E. Coli - Improving, continue on planned antibiotic course: Cephalixin 1000 mg q8h through 10/15 - Afebrile, denies fever or chills on exam today Neuropathy 10/12/2021 12/19/2021 Overview: Last Assessment & Plan: - BLE neuropathy - Continue Lyrica 75 mg BID NSTEMI (non-ST elevated myocardial infarction) 0 02/06/2021 02/09/2021 Morbid obesity due to excess calories 11/30/2020 12/19/2021 Acute kidney injury superimposed on chronic kidn ey disease 11/30/2020 12/19/2021 CHF, acute on chronic 11/28/2020 08/26/2021 Lower extremity cellulitis 11/28/202012/19 Present for a month 10/17/2020 08/26/2021 Pneumonia due to COVID-19 virus 10/13/2020 08/26/2021 Heart disease (organic) 05/31/2012 08/26/20 21 Dyspnea 05/31/2012 12/19/2021 documented as of this encounter (statuses as of 01/10/2023) [facility] History of Past illness Narrative* Problem Noted Date Resolved Date Bacteremia 10/12/2021 12/19/2021 Overview: Last Assessment & Plan: - Blood and urine cx + for E. Coli - Improving, continue on planned antibiotic course: Cephalixin 1000 mg q8h through 10/15 - Afebrile, denies fever or chills on exam today Neuropathy 10/12/2021 12/19/2021 Overview: Last Assessment & Plan: - BLE neuropathy - Continue Lyrica 75 mg BID NSTEMI (non-ST elevated myocardial infarction) 0 02/06/2021 02/09/2021 Morbid obesity due to excess calories 11/30/2020 12/19/2021 Acute kidney injury superimposed on chronic kidn ey disease 11/30/2020 12/19/2021 CHF, acute on chronic 11/28/2020 08/26/2021 Lower extremity cellulitis 11/28/202012/19 Present for a month 10/17/2020 08/26/2021 Pneumonia due to COVID-19 virus 10/13/2020 08/26/2021 Heart disease (organic) 05/31/2012 08/26/20 21 Dyspnea 05/31/2012 12/19/2021 documented as of this encounter (statuses as of 01/16/2023) [facility] History of Past illness Narrative* Problem Noted Date Resolved Date Bacteremia 10/12/2021 12/19/2021 Overview: Last Assessment & Plan: - Blood and urine cx + for E. Coli - Improving, continue on planned antibiotic course: Cephalixin 1000 mg q8h through 10/15 - Afebrile, denies fever or chills on exam today Neuropathy 10/12/2021 12/19/2021 Overview: Last Assessment & Plan: - BLE neuropathy - Continue Lyrica 75 mg BID NSTEMI (non-ST elevated myocardial infarction) 0 02/06/2021 02/09/2021 Morbid obesity due to excess calories 11/30/2020 12/19/2021 Acute kidney injury superimposed on chronic kidn ey disease 11/30/2020 12/19/2021 CHF, acute on chronic 11/28/2020 08/26/2021 Lower extremity cellulitis 11/28/202012/19 Present for a month 10/17/2020 08/26/2021 Pneumonia due to COVID-19 virus 10/13/2020 08/26/2021 Heart disease (organic) 05/31/2012 08/26/20 21 Dyspnea 05/31/2012 12/19/2021 documented as of this encounter (statuses as of 01/16/2023) [facility] History of Past illness Narrative* Problem Noted Date Resolved Date Bacteremia 10/12/2021 12/19/2021 Overview: Last Assessment & Plan: - Blood and urine cx + for E. Coli - Improving, continue on planned antibiotic course: Cephalixin 1000 mg q8h through 10/15 - Afebrile, denies fever or chills on exam today Neuropathy 10/12/2021 12/19/2021 Overview: Last Assessment & Plan: - BLE neuropathy - Continue Lyrica 75 mg BID NSTEMI (non-ST elevated myocardial infarction) 0 02/06/2021 02/09/2021 Morbid obesity due to excess calories 11/30/2020 12/19/2021 Acute kidney injury superimposed on chronic kidn ey disease 11/30/2020 12/19/2021 CHF, acute on chronic 11/28/2020 08/26/2021 Lower extremity cellulitis 11/28/202012/19 Present for a month 10/17/2020 08/26/2021 Pneumonia due to COVID-19 virus 10/13/2020 08/26/2021 Heart disease (organic) 05/31/2012 08/26/20 21 Dyspnea 05/31/2012 12/19/2021 documented as of this encounter (statuses as of 01/17/2023) [facility] History of Past illness Narrative* Problem Noted Date Resolved Date Bacteremia 10/12/2021 12/19/2021 Overview: Last Assessment & Plan: - Blood and urine cx + for E. Coli - Improving, continue on planned antibiotic course: Cephalixin 1000 mg q8h through 10/15 - Afebrile, denies fever or chills on exam today Neuropathy 10/12/2021 12/19/2021 Overview: Last Assessment & Plan: - BLE neuropathy - Continue Lyrica 75 mg BID NSTEMI (non-ST elevated myocardial infarction) 0 02/06/2021 02/09/2021 Morbid obesity due to excess calories 11/30/2020 12/19/2021 Acute kidney injury superimposed on chronic kidn ey disease 11/30/2020 12/19/2021 CHF, acute on chronic 11/28/2020 08/26/2021 Lower extremity cellulitis 11/28/202012/19 Present for a month 10/17/2020 08/26/2021 Pneumonia due to COVID-19 virus 10/13/2020 08/26/2021 Heart disease (organic) 05/31/2012 08/26/20 21 Dyspnea 05/31/2012 12/19/2021 documented as of this encounter (statuses as of 01/26/2023) [facility] of Past illness Narrative* Problem Noted Date Resolved Date Bacteremia 10/12/2021 12/19/2021 Overview: Last Assessment & Plan: - Blood and urine cx + for E. Coli - Improving, continue on planned antibiotic course: Cephalixin 1000 mg q8h through 10/15 - Afebrile, denies fever or chills on exam today Neuropathy 10/12/2021 12/19/2021 Overview: Last Assessment & Plan: - BLE neuropathy - Continue Lyrica 75 mg BID NSTEMI (non-ST elevated myocardial infarction) 0 02/06/2021 02/09/2021 Morbid obesity due to excess calories 11/30/2020 12/19/2021 Acute kidney injury superimposed on chronic kidn ey disease 11/30/2020 12/19/2021 CHF, acute on chronic 11/28/2020 08/26/2021 Lower extremity cellulitis 11/28/202012/19 Present for a month 10/17/2020 08/26/2021 Pneumonia due to COVID-19 virus 10/13/2020 08/26/2021 Heart disease (organic) 05/31/2012 08/26/20 21 Dyspnea 05/31/2012 12/19/2021 documented as of this encounter (statuses as of 01/30/2023) [facility] of Past illness Narrative* Problem Noted Date Resolved Date Bacteremia 10/12/2021 12/19/2021 Overview: Last Assessment & Plan: - Blood and urine cx + for E. Coli - Improving, continue on planned antibiotic course: Cephalixin 1000 mg q8h through 10/15 - Afebrile, denies fever or chills on exam today Neuropathy 10/12/2021 12/19/2021 Overview: Last Assessment & Plan: - BLE neuropathy - Continue Lyrica 75 mg BID NSTEMI (non-ST elevated myocardial infarction) 0 02/06/2021 02/09/2021 Morbid obesity due to excess calories 11/30/2020 12/19/2021 Acute kidney injury superimposed on chronic kidn ey disease 11/30/2020 12/19/2021 CHF, acute on chronic 11/28/2020 08/26/2021 Lower extremity cellulitis 11/28/202012/19 Present for a month 10/17/2020 08/26/2021 Pneumonia due to COVID-19 virus 10/13/2020 08/26/2021 Heart disease (organic) 05/31/2012 08/26/20 Dyspnea 05/31/2012 12/19/2021 documented as of this encounter (statuses as of 02/07/2023) [facility] History of Present illness Narrative* Saleem Carrasco RN - 10/11/2021 2:25 PM EST Report called to Maya [facility] * Stephanie Marquez RD, LD - 10/11/2021 1:39 PM EST Received a call from RN that pt is complaining about her current diet restrictions. Pt to [facility] today and does not want multiple restrictions carrying over at facility. Liberalized diet to 60g CHO/meal, CLARENCE per MNT protocol. Pt's K+ is wnl at this time. Recommend to continue monitoring labs upon transfer. * Irais Ramírez MD - 10/10/2021 4:18 PM EST [facility] Progress Note Subjective/ 66 y.o. year old female who we are seeing in consultation for DARRELL. BP has been stable Edema is stable No issues with urine output Lytes are noted EF 63% Responding to current rx No other new issues at this time 12 points ROS done and negative unless mentioned as above No change in PFSH All data labs/interval notes and overnight issues are reviewed Objective/ Vitals: 10/10/21 0539 10/10/21 0802 10/10/21 0927 10/10/21 1114 BP: (!) 150/76 127/62 Pulse: 79 74 Resp: 17 17 Temp: 96.1 F (35.6 C) 97.1 F (36.2 C) TempSrc: Temporal Temporal SpO2: 100% 99% Weight: 285 lb 11.2 oz (129.6 kg) Height: 5' 4 (1.626 m) 24HR INTAKE/OUTPUT: Intake/Output Summary (Last 24 hours) at 10/10/2021 1618 Last data filed at 10/10/2021 0845 Gross per 24 hour Intake 10 ml Output 800 ml Net -790 ml Constitutional: Alert, awake, no apparent distress Eyes: No icterus, no pallor HEENT: no pallor/cyanosis or icterus Cardiovascular: S1, S2 without m/r/g Respiratory: CTA B without w/r/r Abdomen: +bs, soft, nt Ext: 1+ BLE edema Neck: supple, no thyroid enlargement, no JVD elevation Skin: warm, moist, no rashes Data/ Recent Labs 10/08/21 0344 10/09/21 0555 10/10/21 0345 WBC 9.9 10.6 5.5 HGB 8.1* 8.8* 8.2* HCT 25.3* 27.0* 25.5* MCV 83.4 83.9 84.3 PLT 292 335 326 Recent Labs 10/08/21 0344 10/09/21 0555 10/10/21 0345 NA 135 140 136 K 5.0 5.2* 5.2* CL 105 106 106 CO2 29 29 30 GLUCOSE 136* 143* 206* BUN 35* 34* 30* CREATININE 1.65* 1.48* 1.42* Assessment/ DARRELL/ATN secondary to volume depletion related to poor oral intake in the setting of diuresis and ARB use + perfusion injury from relative hypotension (improving) CKD 3a, baseline 1.2 UTI, E. coli positive cultures Altered mental status (resolved) Hyperglycemia secondary to uncontrolled diabetes mellitus (resolved) Uncontrolled diabetes mellitus type 2 Hyponatremia, secondary to hyperglycemia (resolved) HFpEF (EF 65%) COPD, history of Plan/ Serum creatinine continues to improve, baseline 1.2, nonoliguric, BP soft In a chronic setting, may need to tolerate some rise in serum creatinine in the setting of diuresisto keep out of CHF exacerbation Upuc 0.1gm/day and meeting goal of <0.5gm/day Ok for prn diuresis if s/o volume overload Ok to restart low dose lasix at 20mg daily Keep on holding the ARB US noted Tight control blood sugars will help to prevent progression of CKD Avoid nephrotoxins and contrast dye Dose all meds for GFR < 30 No further changes Ok to start discharge planning from renal standpoint Plan is to d/c to rehab We will follow Thank you for the consult and the opportunity to participate in the care of this patient. Please donot hesitate to call with any questions or concerns. Hema Carl APRN, [facility] [phone] office Patient is independently assessed and examined and all data and notes are reviewed.I reviewed the HEAD REFRIGERATING ENGINEER notes and findings I agree with her assessment and plan. * Saniya Oshea APRN - TOUR ACTOR - 10/10/2021 12:45 PM EST Images from the original note were not included. Hospitalist Progress Note 10/10/2021 12:45 PM Subjective: Admit Date: 10/01/2021 PCP: Moe Meyer MD Room#: 243/2432 Interval History: No overnight issues. K mildly elevated today. Denies chest pain, sob, abdominal pain, nausea, vomiting, diarrhea, constipation, fevers, or chills. ADULT DIET; Regular; 4 carb choices (60 gm/meal); Low Fat/Low Chol/High Fiber/CLARENCE Patient Vitals for the past 96 hrs (Last 3 readings): Weight 10/10/21 0539 285 lb 11.2 oz (129.6 kg) Medications: sodium chloride dextrose cephALEXin 1,000 mg Oral 3 times per day insulin glargine 25 Units SubCUTAneous BID insulin lispro 10 Units SubCUTAneous TID WC insulin lispro 0-12 Units SubCUTAneous TID WC mupirocin Topical Daily sodium chloride flush 5-40 mL IntraVENous 2 times per day pantoprazole 40 mg Oral QAM AC heparin (porcine) 5,000 Units SubCUTAneous 3 times per day atorvastatin 80 mg Oral Nightly clopidogrel 75 mg Oral Daily ezetimibe 10 mg Oral Daily [Held by provider] furosemide 40 mg Oral BID isosorbide mononitrate 30 mg Oral Daily [Held by provider] losartan 50 mg Oral Daily metoprolol succinate 25 mg Oral Daily pregabalin 75 mg Oral BID ranolazine 1,000 mg Oral BID LABS: CBC: Recent Labs 10/08/214 10/09/21 0555 10/10/21344 WBC 9.9 10.6 5.5 RBC 3.03* 3.22* 3.02* HGB 8.1* 8.8* 8.2* HCT 25.3* 27.0* 25.5* MCV 83.4 83.9 84.3 RDW 16.0* 16.0* 16.3* PLT 292 335 326 BMP: Recent Labs 10/08/2134310/09/2155410/10/21344 NA 135 140 136 K 5.0 5.2* 5.2* CL 105 106 106 CO2 29 29 30 BUN 35* 34* 30* CREATININE 1.65* 1.48* 1.42* GLUCOSE 136* 143* 206* CALCIUM 8.8 9.3 8.6 ANIONGAP 2* 4 0* Procalcitonin: Lab Results Component Value Date PROCAL 9.92 10/06/2021 Objective: Vitals: BP 127/62 Pulse 74 Temp 97.1 F (36.2 C) (Temporal) Resp 17 Ht 5' 4 (1.626 m) Wt 285 lb 11.2 oz (129.6 kg) SpO2 99% BMI 49.04 kg/m Pulse Ox: SpO2 Av.5 % Min: 98 % Max: 100 % Supplemental O2: O2 Flow Rate (L/min): 3 L/min General appearance: No apparent distress HEENT: Normal cephalic, atraumatic without obvious deformity. Pupils equal, round, and reactive to light. Extra ocular muscles intact. Neck: Supple, with full range of motion. No jugular venous distention. Respiratory: Normal respiratory effort. Clear to auscultation, diminished Cardiovascular: Regular rate and rhythm with normal S1/S2 Abdomen: obese, non-tender, non-distended with + bowel sounds. No rebound or guarding. - martinez Musculoskeletal: LE non-pitting edema. Skin: dime sized ulceration on dorsal surface of left foot- healing well Neurologic: Neurovascularly intact without any focal sensory/motor deficits. Cranial nerves: II-XIIintact, grossly non-focal. Assessment/Plan E. coli bacteremia due to UTI -dasilva-sensitive - ATB stewardship rec transition to PO Cephalexin 1gm TID through 10/15. -TTE neg for vegetation Left foot cellulitis due to ulceration -continue Cefazolin -wound care input noted Severe sepsis -lactic acidosis improved -VSS -continue mgmt of above Acute resp insufficiency, chronic resp failure -usually wears 3l NC at home -has elevated d dimer -VQ neg for PE DARRELL, underlying CKD III -renal function improving -Nephrology following -Furosemide resumed; cont to hold ARB -avoid nephrotoxic agents Mild hyperkalemia -low K diet; Furosemide resumed HFpEF -given 1 dose of IV Furosemide, PO Furosemide resumed -TTE reviewed -daily wts requested CAD -cont DAPT -cardiac meds -no acute anginal complaints DM II w/hyperglycemia, Hgb A1c 10.8% -continue SSI, Lantus -Endocrinology following -input noted -DC Jardiance/Trulicity HTN -continue to monitor Morbid obesity, Body mass index is 49.22 kg/m . -pt declined diet education Untreated DIYA -am labs, replace lytes prn -increase activity -DVT prophylaxis: [] Lovenox [x] Heparin [] SCDs [x] Encourage ambulation [] Already on Anticoagulation Advance Directive: Full Code Discharge planning: TBD - SW following for placement Division of Hospitalist Medicine Inpatient Medical Services * Blanche Guadarrama RD, LD - 10/10/2021 12:07 PM EST Comprehensive Nutrition Assessment Type and Reason for Visit: Reassess Nutrition Recommendations/Plan: 1. Continue Cardiac/ Carb Control (45g/meal) diet as ordered. 2. Please document pt's PO intakes via flowsheet to accurately assess PO intake adequacy. Appears appetite is improving, 100% of breakfast tray consumed this AM, consistent meals placed in HT. 3. RDN to continue to monitor weekly changes in: fluid accumulation, weight, skin integrity, daily lab values, intakes and clinical status and/or goals of care Nutrition Assessment: Pt resting in bed, breakfast tray at bedside, 100% consumed (breakfast sandwich, banana bread, dietgelatin). Pt reports appetite/ PO intakes are improving. Per chart review, pt to discharge to rehabilitation facility. Pt reports intermittent nausea which may be related to time of medication administration, does not appear to be impacting appetite. Pt denies questions/ concern regarding currentdiet order. Pt reports she does not do well on a controlled diet. RD attached education materials regarding carbohydrate counting and diabetes to discharge instructions. Should patient be motivated and interested- would recommend MD referral to outpatient group forcontinued education and support. 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 and AMS) Weight Loss: No significant weight loss Body Fat Loss: Unable to assess (deferred) Muscle Mass Loss: Unable to assess (deferred) Fluid Accumulation: No significant fluid accumulation Hand Fretted Instrument Maker Strength: Not Performed Estimated Daily Nutrient Needs: Energy (kcal): 1465-0032 (11-14 kcal/kg CBW); Weight Used for Energy Requirements: Current (129 kg) Protein (g): 65-82 (1.2-1.5 g protien/kg IBW); Weight Used for Protein Requirements: [place] (54.45 kg) Fluid (ml/day): per MD; Method Used for Fluid Requirements: Other (Comment) Nutrition Related Findings: -I/O (4.6L); +2 pitting BLE/ +1 BUE edema; +BS; Abdomen: rotund/ distended, constipation Wounds: (Abrasion to left foot, excoriation to buttocks; Edward=14 (10/09)) Labs: BGT: 228, 206, 184^; A1c 10.8% (08/26/21); BUN (30), Cr (1.42); K+ 5.2 Current Nutrition Therapies: ADULT DIET; Regular; 4 carb choices (60 gm/meal); Low Fat/Low Chol/High Fiber/CLARENCE Anthropometric Measures: Height: 5' 4 (162.6 cm) Current Body Weight: 285 lb (129.3 kg) (10/10) Admission Body Weight: 300 lb (136.1 kg) (stated 10/01/21) Usual Body Weight: 280 lb (127 kg) (noted 08/26/21 per EMR review) [place] Body Weight: 120 lbs; % [place] Body Weight 237.5 % BMI: 48.9 Adjusted Body Weight: ; No Adjustment Adjusted BMI: BMI Categories: Obese Class 3 (BMI 40.0 or greater) Nutrition Diagnosis: Impaired nutrient utilization related to cardiac dysfunction, endocrine dysfuntion as evidenced by lab values Nutrition Interventions: Food and/or Nutrient Delivery: Continue Current Diet Nutrition Education/Counseling: Education not appropriate (Pt reports she does not do well on a controlled diet) Coordination of Nutrition Care: Continue to monitor while inpatient Goals: Patient to meet > 75% estimated needs without further fluid retention and labs trending toward baseline Nutrition Monitoring and Evaluation: Behavioral-Environmental Outcomes: None Identified Food/Nutrient Intake Outcomes: Diet Advancement/Tolerance, Food and Nutrient Intake Physical Signs/Symptoms Outcomes: Biochemical Data, Nutrition Focused Physical Findings, Meal Time Behavior, Constipation, GI Status, Fluid Status or Edema, Skin, Weight Discharge Planning: Recommend pursue outpatient diabetes education, Recommend pursue outpatient nutrition counseling Contact: [phone] * Gayle Feliciano MD - 10/10/2021 10:52 AM EST Images from the original note were not included. Department of Internal Medicine Division of Endocrinology, Diabetes, & Metabolism Endocrinology Note Patient Name: Kimberly Patel : 1955 AGE: 66 y.o. Room/Bed: [facility]/2432 Admission Date: 10/01/2021 11:48 PM Consult Date: 10/05/21 Visit Date: 10/10/2021 Reason for Endocrine Consult: T2IDDM Provider/Team Requesting Consult: [facility] PCP: Moe Meyer MD Outpt Technical Documentation Specialist: no ASSESSMENT: Type 2 diabetes with hyperglycemia Long-term insulin use UTI -sepsis DARRELL on CKD Obesity-BMI 49 CAD/HF PLAN: The inpt antihyperglycemic regimen will be as follows: No changes to regimen since current sugars are significant for post prandial hyperglycemia since patient has not been receiving/refusing meal time insulin. Since her appetite is better now , doses of insulins are not to be skipped Inpt GMF glucose goal < 180 FSBS to occur qAC/HS/PRN for s/s of hyper-/hypoglycemia. FSBS data will be used to determine the next steps in antihyperglycemic medication titration duringhospital stay. If hypoglycemia were to occur it should be treated per hospital protocol. Diet recommendation: restricted carb diet Check TSH ANTICIPATED ENDOCRINE HOME GOING RECOMMENDATIONS: Optimized for Discharge from Endocrine standpoint: yes Home Going Endocrine Rx Recommendations-- Lantus and Humalog per hospital doses Jardiance and Trulicity to be stopped on discharge Outpt Follow Up-- Has an upcoming appointment with Dr Nikunj Post at [facility] Appointment request sent to Endo office Staff: No SUBJECTIVE/HPI: CHIEF COMPLAINT: Altered Mental Status Reason for admission: UTI - Sepsis and DARRELL Type of DM: 2 Onset of DM: several years ago Home DM Medication Regimen: Lantus 64 units bid and Humalog 30 Was on trulicity - GI effects with it Jardiance - stopped 3 days prior to admission because of adverse effects DM control (last A1c/glucose data): 10.8% in 07/2021 Current regimen: Lantus 25units bid , Humalog 10 with meals + medium dose scale Steroids: No Renal functions:creatinine 1.42 - improving ( baseline 1.26) Diet/tube feeds: restricted carb diet Sugars : 123 , 230 , 228 , 184 , 206 Patient seen at bedside and she mentions that she feels better and has been able to tolerate her diet Review of Systems As above OBJECTIVE: Vitals: 10/10/21 0351 10/10/21 0539 10/10/21 0802 10/10/21 0927 BP: (!) 141/68 (!) 150/76 Pulse: 78 79 Resp: 18 17 Temp: 97.5 F (36.4 C) 96.1 F (35.6 C) TempSrc: Temporal Temporal SpO2: 100% 100% Weight: 285 lb 11.2 oz (129.6 kg) Height: 5' 4 (1.626 m) Physical Exam Constitutional: General: She is not in acute distress. Appearance: She is obese. HENT: Head: Normocephalic and atraumatic. Eyes: Extraocular Movements: Extraocular movements intact. Cardiovascular: Rate and Rhythm: Normal rate and regular rhythm. Pulses: Normal pulses. Heart sounds: Normal heart sounds. No murmur heard. Pulmonary: Effort: Pulmonary effort is normal. No respiratory distress. Breath sounds: Normal breath sounds. No wheezing. Abdominal: General: There is distension. Tenderness: There is no abdominal tenderness. Musculoskeletal: General: Swelling present. No tenderness. Right lower leg: Edema present. Left lower leg: Edema present. Skin: General: Skin is warm and dry. Neurological: General: No focal deficit present. Mental Status: She is alert. Motor: Weakness present. Psychiatric: Mood and Affect: Mood normal. Behavior: Behavior normal. 24 hour intake/output: Intake/Output Summary (Last 24 hours) at 10/10/2021 1052 Last data filed at 10/10/2021 0845 Gross per 24 hour Intake 10 ml Output 800 ml Net -790 ml Diet: ADULT DIET; Regular; 4 carb choices (60 gm/meal); Low Fat/Low Chol/High Fiber/CLARENCE Medications (as per EMR): HomeMeds: Prior to Admission medications Medication Sig Start Date End Date Taking? Authorizing Provider cephALEXin (KEFLEX) 500 MG capsule Take 2 capsules by mouth every 8 hours for 20 doses 10/08/21 10/15/21 Yes DARREL Evans CNP furosemide (LASIX) 40 MG tablet Take 1 tablet by mouth daily 10/11/21 Yes DARREL Evans CNP mupirocin (BACTROBAN) 2 % ointment Apply topically 3 times daily.Apply to left anterior foot wound daily cover with dry dressing. 10/09/21 10/15/21 Yes DARREL Evans CNP simethicone (MYLICON) 80 MG chewable tablet Take 1 tablet by mouth every 6 hours as needed for Flatulence 10/08/21 Yes DARREL Evans CNP insulin lispro (HUMALOG) 100 UNIT/ML injection vial Inject 10 Units into the skin 3 times daily (with meals) 10/08/21 Yes DARREL Evans CNP insulin glargine (LANTUS) 100 UNIT/ML injection vial Inject 25 Units into the skin 2 times daily 10/08/21 Yes DARREL Evans CNP Insulin Pen Needle (MEIJER PEN NEEDLES) 31G X 6 MM MISC 1 each by Does not apply route 3 times daily 10/08/21 Yes DARREL Evans CNP ranolazine (RANEXA) 500 MG extended release tablet Take 1,000 mg by mouth 2 times daily Yes Historical Provider, atorvastatin (LIPITOR) 80 MG tablet Take 80 mg by mouth nightly Yes Historical Provider, metoprolol succinate (TOPROL XL) 25 MG extended release tablet Take 25 mg by mouth daily Yes Historical Provider, clopidogrel (PLAVIX) 75 MG tablet Take 75 mg by mouth daily Yes Historical Provider, isosorbide mononitrate (IMDUR) 30 MG extended release tablet Take 30 mg by mouth daily Yes Historical Provider, ezetimibe (ZETIA) 10 MG tablet Take 10 mg by mouth daily Yes Historical Provider, omeprazole (PRILOSEC) 20 MG delayed release capsule Take 20 mg by mouth daily Yes Historical Provider, pregabalin (LYRICA) 75 MG capsule Take 75 mg by mouth 2 times daily. Yes Historical Provider, Scheduled Meds: cephALEXin 1,000 mg Oral 3 times per day insulin glargine 25 Units SubCUTAneous BID insulin lispro 10 Units SubCUTAneous TID WC insulin lispro 0-12 Units SubCUTAneous TID WC mupirocin Topical Daily sodium chloride flush 5-40 mL IntraVENous 2 times per day pantoprazole 40 mg Oral QAM AC heparin (porcine) 5,000 Units SubCUTAneous 3 times per day atorvastatin 80 mg Oral Nightly clopidogrel 75 mg Oral Daily ezetimibe 10 mg Oral Daily [Held by provider] furosemide 40 mg Oral BID isosorbide mononitrate 30 mg Oral Daily [Held by provider] losartan 50 mg Oral Daily metoprolol succinate 25 mg Oral Daily pregabalin 75 mg Oral BID ranolazine 1,000 mg Oral BID Continuous Infusions: sodium chloride dextrose PRN Meds:simethicone, sennosides-docusate sodium, chlorhexidine, sodium chloride flush, sodium chloride, acetaminophen OR acetaminophen, glucose, dextrose, glucagon (rDNA), dextrose, ipratropium-albuterol Diagnostic Workup: I reviewed pertinent Laboratory results, Radiographic results, and Other Clinical Notes at the timeof today's encounter. BMP: Recent Labs 10/08/21 0344 10/09/21 0555 10/10/21 0345 NA 135 140 136 K 5.0 5.2* 5.2* CL 105 106 106 CO2 29 29 30 BUN 35* 34* 30* CREATININE 1.65* 1.48* 1.42* GLUCOSE 136* 143* 206* Glucose: Recent Labs 10/08/21 1641 10/08/21 1950 10/09/21 0017 10/09/21 0622 10/09/21 1108 10/09/21 1721 10/09/21 2111 10/10/21 0605 POCGLU 103* 186* 156* 171* 123* 230* 228* 184* HgbA1C: No results for input(s): LABA1C in the last 72 hours. Hepatic: No results for input(s): ALKPHOS, ALT, AST, PROT, BILITOT, BILIDIR, LABALBU in the last 72 hours. Lipids: No results for input(s): CHOL, TRIG, HDL, LDLCALC in the last 72 hours. Invalid input(s): LDL TSH: Lab Results Component Value Date TSH 7.319 (H) 10/08/2021 Radiology reportsas per the Radiologist Radiology: CT Head WO Contrast Result Date: 10/02/2021 Patient Name: KIMBERLY PATEL Computed Tomography ACCESSION EXAM DATE/TIME PROCEDURE ORDERING PROVIDER [id number] 10/02/2021 02:[address] Head or Brain w/o QUIQUE ROBERTS Contrast CPT code 26218 Reason For Exam (CT Head or Brain w/o Contrast) change in mental status Report CLINICAL INDICATION: change in mental status COMPARISON: None Technique: Unenhanced [address] images were obtained from skull base to vertex. Images were reformatted in coronal and sagittal projections. Findings: Ventricles: Appropriate in size for the patient's age. Brain Parenchyma There is no CT evidence of an acute intracranial hemorrhage, territorial infarction, midline shift, mass effect, or extra-axial collection. The carver-white differentiation remains preserved and thebasal cisterns are patent. Bones: The osseous structures are unremarkable without evidence of a fracture. The paranasal sinuses and mastoid air cells remain well aerated. IMPRESSION: No acute intracranial abnormality. Report Dictated on --- Final --- Dictating Physician: MD MORROW YUN ROBERT Signed Date and Time: 10/02/2021 2:51 am Signed by: MD MORROW YUN ROBERT Transcribed Date and Time: 10/02/2021 2:53 XR CHEST PORTABLE Result Date: 10/02/2021 Patient Name: KIMBERLY PATEL Diagnostic Radiology ACCESSION EXAM DATE/TIME PROCEDURE ORDERING PROVIDER [id number] 10/02/2021 00:32 EST CR Chest Portable Beverley QUIQUE GUPTA CPT code 96945 Reason For Exam (CR Chest Portable) sepsis Report CLINICAL INDICATION: sepsisCOMPARISON: None TECHNIQUE: Single portable AP radiograph of the chest. FINDINGS: LUNGS/PLEURA:Clear with no acute infiltrate or effusion. No pneumothorax. The trachea is midline. MEDIASTINUM:Heart size and mediastinal contours are normal. VASCULARITY: Normal BONES:Unremarkable IMPRESSION: Lungs clear with no acute infiltrate or effusion. Report Dictated on --- Final --- Dictating Physician: MD MORROW YUN ROBERT Signed Date and Time: 10/02/2021 0:37 am Signed by: MD MORROW YUN ROBERT Transcribed Date and Time: 10/02/2021 0:39 CT Abdomen Pelvis Wo Contrast Result Date: 10/02/2021 Patient Name: KIMBERLY PATEL Computed Tomography ACCESSION EXAM DATE/TIME PROCEDURE ORDERING PROVIDER [id number] 10/02/2021 02:[address] Abdomen/Pelvis (No Beverley QUIQUE GUPTA PO, No IV) CPT code 89517 Reason For Exam (CT Abdomen/Pelvis (No PO, No IV)) Abdominal pain distention, ascites, renal failure Report CLINICAL HISTORY: Abdominal pain distention, ascites, renal failure COMPARISON: None Technique: [address] images were obtained of the abdomen and pelvis without the use of intravenous contrast. Images were reformatted in coronal and sagittal projections. FINDINGS: Lung bases: The lung bases are clear. Major organs: A round calcification is present within the lateral right lobe of the liver. This is benign in appearance. The liver is otherwise normal. The patient is status post a cholecystectomy. The spleen, pancreas, and adrenal glands are normal. There is bilateral nonspecific perinephric fat stranding. The kidneys are otherwise normal. Bowel: The bowel is of normal caliber throughout without evidence of wall thickening or obstruction. The appendix is normal Lymph nodes and Mesentery: No enlarged intra-abdominal lymph nodes or free fluid. Mesentery is normal with no free air. Vasculature: The abdominal aorta is normal in caliber without evidence of aneurysmal dilatation. Mild scattered atherosclerotic calcifications. Soft tissues and Osseous structures: Multilevel degenerative changes of the lumbar spine. No suspicious osseous lesion. Pelvis: Major organs: The rectum, sigmoid colon, and uterus are normal. A Martinez catheter decompresses the bladder. Lymph nodes: No enlarged intrapelvic lymph nodes or free fluid. Computed Tomography Report Soft tissues and Osseous structures: No acute fracture. No suspicious osseous lesions. IMPRESSION: ABDOMEN: No acute intra-abdominal disease process. Normal appendix PELVIS: No acute intrapelvic disease process. Report Dictated on --- Final --- Dictating Physician: MD MORROW YUN ROBERT Signed Date and Time: 10/02/2021 2:58 am Signed by: MD MORROW YUN ROBERT Transcribed Date and Time: 10/02/2021 2:59 History/Other: Past Medical History: Past Medical History: Diagnosis Date CHF (congestive heart failure) (HCC) COPD (chronic obstructive pulmonary disease) (HCC) Diabetes mellitus (HCC) Past Surgical History: Past Surgical History: Procedure Laterality Date CHOLECYSTECTOMY ENDOSCOPY, COLON, DIAGNOSTIC throat biopsy Allergy(ies): Allergies Allergen Reactions Hydromorphone Hcl Other (See Comments) Metformin Diarrhea Other reaction(s): Unknown Metformin Hcl Other reaction(s): Unknown Morphine Other reaction(s): Unknown, Vomiting Ondansetron Other reaction(s): Unknown, Unknown Ondansetron Hcl Hydromorphone Nausea And Vomiting Penicillins Itching and Rash Tolerated Ceftriaxone 2017; tolerated pip-tazo 09/2021 Family History: History reviewed. No pertinent family history. Social History: Social History Tobacco Use Smoking status: Former Smoker Smokeless tobacco: Never Used Vaping Use Vaping Use: Never used Substance Use Topics Alcohol use: Not on file Drug use: Not on file Portions of the information within this encounter were entered using an electronic dictation system. Best attempts were made to edit/proofread the information prior to note completion. Despite the review of information, some errors may remain. If there are questions related to the information contained within the note please contact the signing physician directly. I spent 25 minutes with the pt which involved more than 51% of the time in coordination of care, medical evaluation, review of records, and/or counseling of the pt regarding his/her condition/diseasestate/prognosis on the date of this note. * Petrona Lindo PTA - 10/10/2021 9:35 AM EST Physical Therapy Facility/Department: [facility] Daily Treatment Note NAME: Kimberly Patel : 1955 Date of Service: 10/10/2021 Discharge Recommendations: Subacute/Group Home Facility Assessment Assessment: Pt presents with slight increased functional mobility. Pt is CGA/min A x 1 for bed mobility, mod A x 2 for STS and side steps towards HOB. Pt demonstrates poor activity tolerance and onlyable to stand for 15 seconds. Pt still unsafe to return home and would benefit from continued therapy. REQUIRES PT FOLLOW UP: Yes Activity Tolerance Activity Tolerance: Patient limited by fatigue; Patient limited by endurance; Patient limited by pain Patient Diagnosis(es): The primary encounter diagnosis was Septicemia (HCC). Diagnoses of Altered mental status, unspecified altered mental status type and Urinary tract infection without hematuria, site unspecified were also pertinent to this visit. has a past medical history of CHF (congestive heart failure) (HCC), COPD (chronic obstructive pulmonary disease) (HCC), and Diabetes mellitus (HCC). has a past surgical history that includes Cholecystectomy and Endoscopy, colon, diagnostic. Restrictions Restrictions/Precautions Restrictions/Precautions: General Precautions Required Braces or Orthoses?: No Subjective General Chart Reviewed: Yes Family / Caregiver Present: No Subjective Subjective: Pt is agreeable to therapy General Comment Comments: Per RN patient okay for therapy. Pain Screening Patient Currently in Pain: Yes (Overall pain but didnt rate) Vital Signs Patient Currently in Pain: Yes (Overall pain but didnt rate) Objective Bed mobility Supine to Sit: Contact guard assistance (Use of bed rails) Sit to Supine: Minimal assistance (B LE) Scooting: Minimal assistance Comment: Denied dizziness.HOB elevated and increased time to complete. Transfers Sit to Stand: Moderate Assistance; 2 Person Assistance (to FWW) Stand to sit: Moderate Assistance; 2 Person Assistance Comment: Denied dizziness. Pt requires verbal cues for correct hand placement with ascends and descends. Pt still pulls up on FWW. Pt able to compelte x4 STS transfers for elevated bed. Pt only able to maintain standing for 15 seconds at a time before requiring to sit. Ambulation Ambulation?: Yes More Ambulation?: No Ambulation 1 Surface: level tile Device: Rolling Walker Assistance: Moderate assistance; 2 Person assistance Quality of Gait: Demonstrates a short stepping pattern, decreased step height and length, lateral swaying, overall unsteadiness Distance: 4 steps towards HOB Comments: Requires cues for sequence and initiation AM-PAC Score AM-[facility] Inpatient Mobility Raw Score : 12 (10/10/21927) AM-[facility] Inpatient T-Scale Score : 35.33 (10/10/21927) Mobility Inpatient CMS 0-100% Score: 68.66 (10/10/21927) Mobility Inpatient [facility] G-Code Modifier : CL (10/10/21927) Goals Short term goals Time Frame for Short term goals: 5 visits Short term goal 1: Patient will complete bed mobility with Michelle to increase independence. (not met) Short term goal 2: Patient will complete functional transfers with ModA and FWW in preparation for gait. (not met) Short term goal 3: Patient will take multiple side steps alone EOB with FWW and ModA to increase function. (not met) Short term goal 4: Patient will complete 1-2 set/ 10 reps LE exercises to increase strength and tolerance for functional activity. (N/A) Patient Goals Patient goals : Patient states she wants to return home. Plan Plan Times per week: 4 visits Current Treatment Recommendations: Strengthening, ROM, Balance Training, Endurance Training, Transfer Training, Gait Training, Pain Management, Safety Education & Training, Patient/Caregiver Education & Training, Equipment Evaluation, Education, & procurement, Positioning Plan Comment: all goals and/or treatment were established in collaboration with patient Safety Devices Type of devices: All fall risk precautions in place, Gait belt, Patient at risk for falls, Call light within reach, Left in bed, Nurse notified, Bed alarm in place Restraints Initially in place: No Therapy Time Individual Concurrent Group Co-treatment Time In 0825 Time Out 0842 Minutes 17 Timed Code Treatment Minutes: 8 Minutes (1 ther act) Petrona Lindo, FORDER OPERATOR * Morro Bai - 10/10/2021 8:42 AM EST Occupational Therapy Facility/Department: [facility] Daily Treatment Note NAME: Kimberly Patel : 1955 Date of Service: 10/10/2021 Discharge Recommendations: Subacute/Group Home Facility, Patient would benefit from continued therapy after discharge Assessment Performance deficits / Impairments: Decreased strength; Decreased endurance; Decreased ADL status; Decreased high-level IADLs; Decreased posture; Decreased ROM; Decreased balance; Decreased functional mobility Assessment: Pt is making slow progress with OT for ADLS and transfers with pt needing 2 skilled therapist for standing tasks with pt overall at a mod to dep level. Pt is well below baseline and not safe to return home at this time as pt is a high fall risk. OT is recommending SNF level therapy at D/C. REQUIRES OT FOLLOW UP: Yes Safety Devices Safety Devices in place: Yes Type of devices: All fall risk precautions in place; Call light within reach; Gait belt; Patient atrisk for falls; Nurse notified; Left in bed (left with RN) Patient Diagnosis(es): The primary encounter diagnosis was Septicemia (HCC). Diagnoses of Altered mental status, unspecified altered mental status type and Urinary tract infection without hematuria, site unspecified were also pertinent to this visit. has a past medical history of CHF (congestive heart failure) (HCC), COPD (chronic obstructive pulmonary disease) (HCC), and Diabetes mellitus (HCC). has a past surgical history that includes Cholecystectomy and Endoscopy, colon, diagnostic. Restrictions Restrictions/Precautions Restrictions/Precautions: General Precautions Required Braces or Orthoses?: No Subjective General Chart Reviewed: Yes Patient assessed for rehabilitation services?: Yes Additional Pertinent Hx: CKD, chronic respiratory failure on 3 L O2 at baseline, obesity, IDDM, Bipolar, COPD, CHF Family / Caregiver Present: No Subjective Subjective: Pt supine in bed and agreeable to OT tx. General Comment Comments: Per RN, pt OK to see Vital Signs Patient Currently in Pain: Yes (overall but does not rate) Orientation Orientation Overall Orientation Status: Within Functional Limits Objective ADL LE Dressing: Maximum assistance Toileting: Dependent/Total Additional Comments: pt was dep for pericare in standing as pt had an accident and needed cleaned up Balance Sitting Balance: Contact guard assistance Standing Balance: Moderate assistance Standing Balance Time: pt needing mod a of 2 skilled therapist with standing tasks for pt safety using fww, denies dizziness Functional Mobility Functional - Mobility Device: Rolling Walker Activity: Other Assist Level: Moderate assistance Functional Mobility Comments: pt needing mod a of 2 skilled therapist for side steps at EOB for pt safety Bed mobility Supine to Sit: Contact guard assistance Sit to Supine: Minimal assistance Scooting: Minimal assistance Comment: HOB elevated and increased time for completion, denies dizziness Transfers Sit to stand: Moderate assistance; 2 Person assistance Stand to sit: 2 Person assistance; Moderate assistance Transfer Comments: cues for hand placement and use of fww Plan Plan Times per week: 4 visits Current Treatment Recommendations: Strengthening, Endurance Training, Patient/Caregiver Education & Training, ROM, Equipment Evaluation, Education, & procurement, Self-Care / ADL, Balance Training, Pain Management, Home Management Training, Functional Mobility Training, Safety Education & Training, Positioning Plan Comment: cont ot tx per poc AM-PAC Score [facility] Inpatient Daily Activity Raw Score: 15 (10/10/21 1005) AM-[facility] Inpatient ADL T-Scale Score : 34.69 (10/10/211004) ADL Inpatient CMS 0-100% Score: 56.46 (10/10/211004) ADL Inpatient CMS G-Code Modifier : CK (10/10/211004) Goals Short term goals Time Frame for Short term goals: 5 visits Short term goal 1: Pt will complete transfer to [facility] with mod A.-na Short term goal 2: Pt will perform functional tasks for 5 minutes without drop in vitals as precursor of completion of ADLs.-porgressing Short term goal 3: Pt will complete UB ADLs with SBA.-na Short term goal 4: Pt will complete LB ADLs with mod A.-progressing Short term goal 5: Pt will complete static stand for ~1 minute with mod A of 1.-progressing Patient Goals Patient goals : go back home and care for self Therapy Time Individual Concurrent Group Co-treatment Time In 08 Time Out 0842 Minutes 17 Timed Code Treatment Minutes: 17 Minutes (1 ADL) Morro Bai * Irais Ramírez MD - 10/09/2021 11:16 AM EST [facility] Progress Note Subjective/ 66 y.o. year old female who we are seeing in consultation for DARRELL. BP has been stable Edema is stable No issues with urine output Lytes are noted EF 63% Responding to current rx No other new issues at this time 12 points ROS done and negative unless mentioned as above No change in PFSH All data labs/interval notes and overnight issues are reviewed Objective/ Vitals: 10/08/21 1949 10/09/21 0308 10/09/21 0742 10/09/21 1111 BP: (!) 150/72 139/68 138/67 (!) 140/68 Pulse: 81 81 83 82 Resp: 18 18 17 Temp: 97.4 F (36.3 C) 97.3 F (36.3 C) 96.3 F (35.7 C) 96.6 F (35.9 C) TempSrc: Temporal Temporal Temporal Temporal SpO2: 100% 100% 94% 99% Weight: Height: 24HR INTAKE/OUTPUT: Intake/Output Summary (Last 24 hours) at 10/09/2021 1116 Last data filed at 10/08/2021 1552 Gross per 24 hour Intake Output 1400 ml Net -1400 ml Constitutional: Alert, awake, no apparent distress Eyes: No icterus, no pallor HEENT: no pallor/cyanosis or icterus Cardiovascular: S1, S2 without m/r/g Respiratory: CTA B without w/r/r Abdomen: +bs, soft, nt Ext: 1+ BLE edema Neck: supple, no thyroid enlargement, no JVD elevation Skin: warm, moist, no rashes Data/ Recent Labs 10/07/2141710/08/214 10/09/21 0555 WBC 12.1* 9.9 10.6 HGB 8.2* 8.1* 8.8* HCT 25.6* 25.3* 27.0* MCV 84.3 83.4 83.9 PLT 236 292 335 Recent Labs 10/07/2141710/08/214 10/09/21 0555 NA 138 135 140 K 4.8 5.0 5.2* CL 107 105 106 CO2 28 29 29 GLUCOSE 80 136* 143* BUN 37* 35* 34* CREATININE 1.84* 1.65* 1.48* Assessment/ DARRELL/ATN secondary to volume depletion related to poor oral intake in the setting of diuresis and ARB use + perfusion injury from relative hypotension (improving) CKD 3a, baseline 1.2 UTI, E. coli positive cultures Altered mental status (resolved) Hyperglycemia secondary to uncontrolled diabetes mellitus (resolved) Uncontrolled diabetes mellitus type 2 Hyponatremia, secondary to hyperglycemia (resolved) HFpEF (EF 65%) COPD, history of Plan/ Serum creatinine continues to improve, baseline 1.2, nonoliguric, BP soft Upuc 0.1gm/day and meeting goal of <0.5gm/day Ok for prn diuresis if s/o volume overload Ok to resart low dose lasix , ok to keep on holding the ARB US noted Tight control blood sugars will help to prevent progression of CKD Avoid nephrotoxins and contrast dye Dose all meds for GFR < 30 No further changes We will follow * Saniya Oshea, HAM DOCTOR - TOUR ACTOR - 10/09/2021 11:09 AM EST Images from the original note were not included. Hospitalist Progress Note 10/09/2021 11:09 AM Subjective: Admit Date: 10/01/2021 PCP: Moe Meyer MD Room#: 243/2432 Interval History: Pt now electing to go to rehab. No overnight issues. Resting comfortably. Denies chest pain, sob, abdominal pain, nausea, vomiting, diarrhea, constipation, fevers, or chills. ADULT DIET; Regular; 4 carb choices (60 gm/meal); Low Fat/Low Chol/High Fiber/CLARENCE No data found. Medications: sodium chloride dextrose cephALEXin 1,000 mg Oral 3 times per day insulin glargine 25 Units SubCUTAneous BID insulin lispro 10 Units SubCUTAneous TID WC insulin lispro 0-12 Units SubCUTAneous TID WC mupirocin Topical Daily sodium chloride flush 5-40 mL IntraVENous 2 times per day pantoprazole 40 mg Oral QAM AC heparin (porcine) 5,000 Units SubCUTAneous 3 times per day atorvastatin 80 mg Oral Nightly clopidogrel 75 mg Oral Daily ezetimibe 10 mg Oral Daily [Held by provider] furosemide 40 mg Oral BID isosorbide mononitrate 30 mg Oral Daily [Held by provider] losartan 50 mg Oral Daily metoprolol succinate 25 mg Oral Daily pregabalin 75 mg Oral BID ranolazine 1,000 mg Oral BID LABS: CBC: Recent Labs 10/07/2141710/08/21 0344 10/09/21 0555 WBC 12.1* 9.9 10.6 RBC 3.04* 3.03* 3.22* HGB 8.2* 8.1* 8.8* HCT 25.6* 25.3* 27.0* MCV 84.3 83.4 83.9 RDW 15.9* 16.0* 16.0* PLT 236 292 335 BMP: Recent Labs 10/07/2141710/08/21 0344 10/09/21 0555 NA 138 135 140 K 4.8 5.0 5.2* CL 107 105 106 CO2 28 29 29 BUN 37* 35* 34* CREATININE 1.84* 1.65* 1.48* GLUCOSE 80 136* 143* CALCIUM 9.1 8.8 9.3 ANIONGAP 2* 2* 4 LIVER PROFILE:No results for input(s): AST, ALT, BILITOT, ALKPHOS, LABALBU, PROT in the last 72 hours. PT/INR: No results for input(s): PROTIME, INR in the last 72 hours. CARDIAC ENZYMES: No results for input(s): TROPONINI in the last 72 hours. Procalcitonin: Lab Results Component Value Date PROCAL 9.92 10/06/2021 Objective: Vitals: BP 138/67 Pulse 83 Temp 96.3 F (35.7 C) (Temporal) Resp 18 Ht 5' 4.02 (1.626 m) Wt 286 lb 14.4 oz (130.1 kg) SpO2 94% BMI 49.22 kg/m Pulse Ox: SpO2 Av.6 % Min: 94 % Max: 100 % Supplemental O2: O2 Flow Rate (L/min): 3 L/min General appearance: No apparent distress HEENT: Normal cephalic, atraumatic without obvious deformity. Pupils equal, round, and reactive to light. Extra ocular muscles intact. Neck: Supple, with full range of motion. No jugular venous distention. Respiratory: Normal respiratory effort. Clear to auscultation, diminished Cardiovascular: Regular rate and rhythm with normal S1/S2 Abdomen: obese, non-tender, non-distended with + bowel sounds. No rebound or guarding. - martinez Musculoskeletal: LE non-pitting edema. Skin: dime sized ulceration on dorsal surface of left foot- healing well Neurologic: Neurovascularly intact without any focal sensory/motor deficits. Cranial nerves: II-XIIintact, grossly non-focal. Assessment/Plan E. coli bacteremia due to UTI -dasilva-sensitive - ATB stewardship rec transition to PO Cephalexin 1gm TID through 10/15. -TTE neg for vegetation Left foot cellulitis due to ulceration -continue Cefazolin -wound care input noted Severe sepsis -lactic acidosis improved -VSS -continue mgmt of above Acute resp insufficiency, chronic resp failure -usually wears 3l NC at home -has elevated d dimer -VQ neg for PE DARRELL, underlying CKD III -renal function improved today -Nephrology following -Furosemide, ARB on hold -avoid nephrotoxic agents HFpEF -given 1 dose of IV Furosemide, PO currently on hold -TTE reviewed -daily wts requested CAD -cont DAPT -cardiac meds -no acute anginal complaints DM II w/hyperglycemia, Hgb A1c 10.8% -continue SSI, Lantus -Endocrinology following -input noted -DC Jardiance/Trulicity HTN -continue to monitor Morbid obesity, Body mass index is 49.22 kg/m . -pt declined diet education Untreated DIYA -am labs, replace lytes prn -increase activity -DVT prophylaxis: [] Lovenox [x] Heparin [] SCDs [x] Encourage ambulation [] Already on Anticoagulation Advance Directive: Full Code Discharge planning: TBD Division of Hospitalist Medicine Inpatient Medical Services * Carmelita Mccord RN - 10/08/2021 5:31 PM EST Pt previously refusing SNF. Discharge order placed for home. Pt now deciding that she needs to go to SNF for rehab. Provider notified. Carmelita Mccord RN * Irais Ramírez MD - 10/08/2021 10:45 AM EST [facility] Progress Note Subjective/ 66 y.o. year old female who we are seeing in consultation for DARRELL. BP has been stable Edema is stable No issues with urine output Lytes are noted EF 63% Responding to current rx No other new issues at this time 12 points ROS done and negative unless mentioned as above No change in PFSH All data labs/interval notes and overnight issues are reviewed Objective/ Vitals: 10/07/21 1444 10/07/21199910/08/21 0343 10/08/21 0815 BP: (!) 130/57 (!) 146/72 (!) 141/65 Pulse: 76 80 77 79 Resp: 16 16 16 Temp: 97.8 F (36.6 C) 98 F (36.7 C) 98 F (36.7 C) 97.9 F (36.6 C) TempSrc: Temporal Oral Temporal Temporal SpO2: 100% 99% 100% 100% Weight: Height: 24HR INTAKE/OUTPUT: Intake/Output Summary (Last 24 hours) at 10/08/2021 1045 Last data filed at 10/07/2021 1136 Gross per 24 hour Intake Output 200 ml Net -200 ml Constitutional: Alert, awake, no apparent distress Eyes: No icterus, no pallor HEENT: no pallor/cyanosis or icterus Cardiovascular: S1, S2 without m/r/g Respiratory: CTA B without w/r/r Abdomen: +bs, soft, nt Ext: 1+ BLE edema Neck: supple, no thyroid enlargement, no JVD elevation Skin: warm, moist, no rashes Data/ Recent Labs 10/06/2131010/07/2141710/08/21343 WBC 8.8 12.1* 9.9 HGB 8.1* 8.2* 8.1* HCT 25.4* 25.6* 25.3* MCV 84.7 84.3 83.4 PLT 187 236 292 Recent Labs 10/06/2131010/07/2141710/08/21343 NA 138 138 135 K 5.1 4.8 5.0 CL 108* 107 105 CO2 26 28 29 GLUCOSE 131* 80 136* BUN 47* 37* 35* CREATININE 2.11* 1.84* 1.65* Assessment/ 1. DARRELL/ATN secondary to volume depletion related to poor oral intake in the setting of diuresis andARB use + perfusion injury from relative hypotension (improving) 2. CKD 3a, baseline 1.2 3. UTI, E. coli positive cultures 4. Altered mental status (resolved) 5. Hyperglycemia secondary to uncontrolled diabetes mellitus (resolved) 6. Uncontrolled diabetes mellitus type 2 7. Hyponatremia, secondary to hyperglycemia (resolved) 8. HFpEF (EF 65%) 9. COPD, history of Plan/ Serum creatinine continues to improve, baseline 1.2, nonoliguric, BP soft Upuc 0.1gm/day and meeting goal of <0.5gm/day Ok for prn diuresis if s/o volume overload C/w holding losartan and Lasix for now Allow for permissive hypertension to help with renal perfusion and recovery US noted Tight control blood sugars will help to prevent progression of CKD Avoid nephrotoxins and contrast dye Dose all meds for GFR < 30 No further changes We will follow * Elis Roth MD - 10/08/2021 9:41 AM EST Images from the original note were not included. Department of Internal Medicine Division of Endocrinology, Diabetes, & Metabolism Endocrinology Note Patient Name: Kimberly Patel : 1955 AGE: 66 y.o. Room/Bed: 243/2432 Admission Date: 10/01/2021 11:48 PM Consult Date: 10/05/21 Visit Date: 10/08/2021 Reason for Endocrine Consult: T2IDDM Provider/Team Requesting Consult: [facility] PCP: Moe Meyer MD Outpt Technical Documentation Specialist: no ASSESSMENT: Type 2 diabetes with hyperglycemia Long-term insulin use UTI -sepsis DARRELL on CKD Obesity-BMI 49 CAD/HF PLAN: The inpt antihyperglycemic regimen will be as follows: Reduce Lantus to 25 units bid Reduce Humalog to 10 units with meals if pt eats a full meal; hold if not eating Inpt GMF glucose goal < 180 FSBS to occur qAC/HS/PRN for s/s of hyper-/hypoglycemia. FSBS data will be used to determine the next steps in antihyperglycemic medication titration duringhospital stay. If hypoglycemia were to occur it should be treated per hospital protocol. Diet recommendation: restricted carb diet Check TSH ANTICIPATED ENDOCRINE HOME GOING RECOMMENDATIONS: Optimized for Discharge from Endocrine standpoint: yes Home Going Endocrine Rx Recommendations-- Lantus and Humalog per hospital doses Jardiance and Trulicity to be stopped on discharge Outpt Follow Up-- Has an upcoming appointment with Dr Nikunj Post at [facility] Appointment request sent to Endo office Staff: No SUBJECTIVE/HPI: CHIEF COMPLAINT: Altered Mental Status Reason for admission: UTI - Sepsis and DARRELL Type of DM: 2 Onset of DM: several years ago Home DM Medication Regimen: Lantus 64 units bid and Humalog 26-26-30 Was on trulicity - GI effects with it Jardiance - stopped 3 days prior to admission because of adverse effects DM control (last A1c/glucose data): 10.8% in 07/2021 Current regimen: Trulicity , Lantus 50 bid , Humalog 26 with breakfast and lunch , Humalog 30 unitswith dinner and medium dose scale Steroids: No Renal functions:creatinine 1.84 - improving ( baseline 1.26) Diet/tube feeds: restricted carb diet Patient was seen at bedside She is sweating as the room was extremely hot; nurse to bring in a fan for pt She has not been eating much Still very weak A lot of nausea; no vomiting Has purewick cath with dark urine BG 136-114 this AM Review of Systems As above OBJECTIVE: Vitals: 10/07/21 1444 10/07/21199910/08/21 0343 10/08/21 0815 BP: (!) 130/57 (!) 146/72 (!) 141/65 Pulse: 76 80 77 79 Resp: 16 16 16 Temp: 97.8 F (36.6 C) 98 F (36.7 C) 98 F (36.7 C) 97.9 F (36.6 C) TempSrc: Temporal Oral Temporal Temporal SpO2: 100% 99% 100% 100% Weight: Height: Physical Exam Constitutional: General: She is not in acute distress. Appearance: She is obese. HENT: Head: Normocephalic and atraumatic. Eyes: Extraocular Movements: Extraocular movements intact. Cardiovascular: Rate and Rhythm: Normal rate and regular rhythm. Pulses: Normal pulses. Heart sounds: Normal heart sounds. No murmur heard. Pulmonary: Effort: Pulmonary effort is normal. No respiratory distress. Breath sounds: Normal breath sounds. No wheezing. Abdominal: General: There is distension. Tenderness: There is no abdominal tenderness. Musculoskeletal: General: Swelling present. No tenderness. Right lower leg: Edema present. Left lower leg: Edema present. Skin: General: Skin is warm and dry. Neurological: General: No focal deficit present. Mental Status: She is alert. Motor: Weakness present. Psychiatric: Mood and Affect: Mood normal. Behavior: Behavior normal. 24 hour intake/output: Intake/Output Summary (Last 24 hours) at 10/08/2021 0942 Last data filed at 10/07/2021 1136 Gross per 24 hour Intake Output 200 ml Net -200 ml Diet: ADULT DIET; Regular; 4 carb choices (60 gm/meal); Low Fat/Low Chol/High Fiber/CLARENCE Medications (as per EMR): HomeMeds: Prior to Admission medications Medication Sig Start Date End Date Taking? Authorizing Provider Dulaglutide (TRULICITY) 0.75 MG/0.5ML SOPN Inject 0.75 mg into the skin once a week Yes Historical Provider, ranolazine (RANEXA) 500 MG extended release tablet Take 1,000 mg by mouth 2 times daily Yes Historical Provider, losartan (COZAAR) 50 MG tablet Take 50 mg by mouth daily Yes Historical Provider, atorvastatin (LIPITOR) 80 MG tablet Take 80 mg by mouth nightly Yes Historical Provider, metoprolol succinate (TOPROL XL) 25 MG extended release tablet Take 25 mg by mouth daily Yes Historical Provider, clopidogrel (PLAVIX) 75 MG tablet Take 75 mg by mouth daily Yes Historical Provider, insulin glargine (LANTUS) 100 UNIT/ML injection vial Inject 60 Units into the skin nightly Yes Historical Provider, empagliflozin (JARDIANCE) 10 MG tablet Take 10 mg by mouth daily Yes Historical Provider, isosorbide mononitrate (IMDUR) 30 MG extended release tablet Take 30 mg by mouth daily Yes Historical Provider, ezetimibe (ZETIA) 10 MG tablet Take 10 mg by mouth daily Yes Historical Provider, omeprazole (PRILOSEC) 20 MG delayed release capsule Take 20 mg by mouth daily Yes Historical Provider, pregabalin (LYRICA) 75 MG capsule Take 75 mg by mouth 2 times daily. Yes Historical Provider, furosemide (LASIX) 40 MG tablet Take 40 mg by mouth 2 times daily Yes Historical Provider, Insulin Aspart, w/Niacinamide, (FIASP FLEXTOUCH) 100 UNIT/ML SOPN Inject 26 Units into the skin 2 times daily (with meals) With breakfast and lunch Yes Historical Provider, Insulin Aspart, w/Niacinamide, (FIASP FLEXTOUCH) 100 UNIT/ML SOPN Inject 30 Units into the skin Daily with supper Yes Historical Provider, Scheduled Meds: cephALEXin 1,000 mg Oral 3 times per day insulin glargine 30 Units SubCUTAneous BID insulin lispro 20 Units SubCUTAneous TID WC insulin lispro 0-12 Units SubCUTAneous TID WC mupirocin Topical Daily sodium chloride flush 5-40 mL IntraVENous 2 times per day pantoprazole 40 mg Oral QAM AC heparin (porcine) 5,000 Units SubCUTAneous 3 times per day atorvastatin 80 mg Oral Nightly clopidogrel 75 mg Oral Daily ezetimibe 10 mg Oral Daily [Held by provider] furosemide 40 mg Oral BID isosorbide mononitrate 30 mg Oral Daily [Held by provider] losartan 50 mg Oral Daily metoprolol succinate 25 mg Oral Daily pregabalin 75 mg Oral BID ranolazine 1,000 mg Oral BID Continuous Infusions: sodium chloride dextrose PRN Meds:simethicone, sennosides-docusate sodium, chlorhexidine, sodium chloride flush, sodium chloride, acetaminophen OR acetaminophen, glucose, dextrose, glucagon (rDNA), dextrose, ipratropium-albuterol Diagnostic Workup: I reviewed pertinent Laboratory results, Radiographic results, and Other Clinical Notes at the timeof today's encounter. BMP: Recent Labs 10/06/21 0311 10/07/21 0418 10/08/21 0344 NA 138 138 135 K 5.1 4.8 5.0 CL 108* 107 105 CO2 26 28 29 BUN 47* 37* 35* CREATININE 2.11* 1.84* 1.65* GLUCOSE 131* 80 136* Glucose: Recent Labs 10/06/21 1125 10/06/21 1628 10/06/21 2006 10/07/21 0537 10/07/21 1131 10/07/21 1630 10/07/21 1950 10/08/21 0733 POCGLU 89 123* 149* 112* 79 132* 194* 114* HgbA1C: No results for input(s): LABA1C in the last 72 hours. Hepatic: No results for input(s): ALKPHOS, ALT, AST, PROT, BILITOT, BILIDIR, LABALBU in the last 72 hours. Lipids: No results for input(s): CHOL, TRIG, HDL, LDLCALC in the last 72 hours. Invalid input(s): LDL TSH: No results found for: TSH, D2PLTFJ, X3XPVBJ, THYROIDAB, FT3, T4FREE Radiology reportsas per the Radiologist Radiology: CT Head WO Contrast Result Date: 10/02/2021 Patient Name: KIMBERLY PATEL Computed Tomography ACCESSION EXAM DATE/TIME PROCEDURE ORDERING PROVIDER [id number] 10/02/2021 02:[address] Head or Brain w/o 5816 QUIQUE GUPTA Contrast CPT code 14397 Reason For Exam (CT Head or Brain w/o Contrast) change in mental status Report CLINICAL INDICATION: change in mental status COMPARISON: None Technique: Unenhanced [address] images were obtained from skull base to vertex. Images were reformatted in coronal and sagittal projections. Findings: Ventricles: Appropriate in size for the patient's age. Brain Parenchyma There is no CT evidence of an acute intracranial hemorrhage, territorial infarction, midline shift, mass effect, or extra-axial collection. The carver-white differentiation remains preserved and thebasal cisterns are patent. Bones: The osseous structures are unremarkable without evidence of a fracture. The paranasal sinuses and mastoid air cells remain well aerated. IMPRESSION: No acute intracranial abnormality. Report Dictated on --- Final --- Dictating Physician: MD MORROW YUN ROBERT Signed Date and Time: 10/02/2021 2:51 am Signed by: MD MORROW YUN ROBERT Transcribed Date and Time: 10/02/2021 2:53 XR CHEST PORTABLE Result Date: 10/02/2021 Patient Name: KIMBERLY PATEL Diagnostic Radiology ACCESSION EXAM DATE/TIME PROCEDURE ORDERING PROVIDER [id number] 10/02/2021 00:32 EST CR Chest Portable QUIQUE ROBERTS CPT code 87549 Reason For Exam (CR Chest Portable) sepsis Report CLINICAL INDICATION: sepsisCOMPARISON: None TECHNIQUE: Single portable AP radiograph of the chest. FINDINGS: LUNGS/PLEURA:Clear with no acute infiltrate or effusion. No pneumothorax. The trachea is midline. MEDIASTINUM:Heart size and mediastinal contours are normal. VASCULARITY: Normal BONES:Unremarkable IMPRESSION: Lungs clear with no acute infiltrate or effusion. Report Dictated on --- Final --- Dictating Physician: MD MORROW YUN ROBERT Signed Date and Time: 10/02/2021 0:37 am Signed by: MD MORROW YUN ROBERT Transcribed Date and Time: 10/02/2021 0:39 CT Abdomen Pelvis Wo Contrast Result Date: 10/02/2021 Patient Name: KIMBERLY PATEL Computed Tomography ACCESSION EXAM DATE/TIME PROCEDURE ORDERING PROVIDER [id number] 10/02/2021 02:[address] Abdomen/Pelvis (No QUIQUE ROBERTS PO, No IV) CPT code 69261 Reason For Exam (CT Abdomen/Pelvis (No PO, No IV)) Abdominal pain distention, ascites, renal failure Report CLINICAL HISTORY: Abdominal pain distention, ascites, renal failure COMPARISON: None Technique: [address] images were obtained of the abdomen and pelvis without the use of intravenous contrast. Images were reformatted in coronal and sagittal projections. FINDINGS: Lung bases: The lung bases are clear. Major organs: A round calcification is present within the lateral right lobe of the liver. This is benign in appearance. The liver is otherwise normal. The patient is status post a cholecystectomy. The spleen, pancreas, and adrenal glands are normal. There is bilateral nonspecific perinephric fat stranding. The kidneys are otherwise normal. Bowel: The bowel is of normal caliber throughout without evidence of wall thickening or obstruction. The appendix is normal Lymph nodes and Mesentery: No enlarged intra-abdominal lymph nodes or free fluid. Mesentery is normal with no free air. Vasculature: The abdominal aorta is normal in caliber without evidence of aneurysmal dilatation. Mild scattered atherosclerotic calcifications. Soft tissues and Osseous structures: Multilevel degenerative changes of the lumbar spine. No suspicious osseous lesion. Pelvis: Major organs: The rectum, sigmoid colon, and uterus are normal. A Martinez catheter decompresses the bladder. Lymph nodes: No enlarged intrapelvic lymph nodes or free fluid. Computed Tomography Report Soft tissues and Osseous structures: No acute fracture. No suspicious osseous lesions. IMPRESSION: ABDOMEN: No acute intra-abdominal disease process. Normal appendix PELVIS: No acute intrapelvic disease process. Report Dictated on --- Final --- Dictating Physician: MD MORROW YUN ROBERT Signed Date and Time: 10/02/2021 2:58 am Signed by: MD MORROW YUN ROBERT Transcribed Date and Time: 10/02/2021 2:59 History/Other: Past Medical History: Past Medical History: Diagnosis Date CHF (congestive heart failure) (HCC) COPD (chronic obstructive pulmonary disease) (HCC) Diabetes mellitus (HCC) Past Surgical History: Past Surgical History: Procedure Laterality Date CHOLECYSTECTOMY ENDOSCOPY, COLON, DIAGNOSTIC throat biopsy Allergy(ies): Allergies Allergen Reactions Hydromorphone Hcl Other (See Comments) Metformin Diarrhea Other reaction(s): Unknown Metformin Hcl Other reaction(s): Unknown Morphine Other reaction(s): Unknown, Vomiting Ondansetron Other reaction(s): Unknown, Unknown Ondansetron Hcl Hydromorphone Nausea And Vomiting Penicillins Itching and Rash Tolerated Ceftriaxone 2017; tolerated pip-tazo 09/2021 Family History: History reviewed. No pertinent family history. Social History: Social History Tobacco Use Smoking status: Former Smoker Smokeless tobacco: Never Used Vaping Use Vaping Use: Never used Substance Use Topics Alcohol use: Not on file Drug use: Not on file Portions of the information within this encounter were entered using an electronic dictation system. Best attempts were made to edit/proofread the information prior to note completion. Despite the review of information, some errors may remain. If there are questions related to the information contained within the note please contact the signing physician directly. I spent 25 minutes with the pt which involved more than 51% of the time in coordination of care, medical evaluation, review of records, and/or counseling of the pt regarding his/her condition/diseasestate/prognosis on the date of this note. * Saniya Oshea APRN - TOUR ACTOR - 10/08/2021 9:00 AM EST Images from the original note were not included. Hospitalist Progress Note 10/08/2021 9:00 AM Subjective: Admit Date: 10/01/2021 PCP: Moe Meyer MD Room#: 243/2432 Interval History: Blood sugar low this AM - Insulin adjusted Pt was able to sit up at the side of the bed with assistance of 3-4 staff members Pt is adamant about going home with dtr- requested that dtr come to facility and see if she would feel comfortable assisting pt with transfers since this would be the expectation at home. I expressedconcern that dtr will not be able to care for her at home w/o significant help. Asked pt about alternative plan - she would be agreeable to rehab facility if her dtr was ok with it. +BM today Denies chest pain, sob, abdominal pain, nausea, vomiting, diarrhea, constipation, fevers, or chills. ADULT DIET; Regular; 4 carb choices (60 gm/meal); Low Fat/Low Chol/High Fiber/CLARENCE Patient Vitals for the past 96 hrs (Last 3 readings): Weight 10/05/21 0344 286 lb 14.4 oz (130.1 kg) Medications: sodium chloride dextrose insulin glargine 30 Units SubCUTAneous BID insulin lispro 20 Units SubCUTAneous TID WC insulin lispro 0-12 Units SubCUTAneous TID WC ceFAZolin 2,000 mg IntraVENous Q8H mupirocin Topical Daily sodium chloride flush 5-40 mL IntraVENous 2 times per day pantoprazole 40 mg Oral QAM AC heparin (porcine) 5,000 Units SubCUTAneous 3 times per day atorvastatin 80 mg Oral Nightly clopidogrel 75 mg Oral Daily ezetimibe 10 mg Oral Daily [Held by provider] furosemide 40 mg Oral BID isosorbide mononitrate 30 mg Oral Daily [Held by provider] losartan 50 mg Oral Daily metoprolol succinate 25 mg Oral Daily pregabalin 75 mg Oral BID ranolazine 1,000 mg Oral BID LABS: CBC: Recent Labs 10/06/2131010/07/2141710/08/21 034 WBC 8.8 12.1* 9.9 RBC 3.00* 3.04* 3.03* HGB 8.1* 8.2* 8.1* HCT 25.4* 25.6* 25.3* MCV 84.7 84.3 83.4 RDW 16.1* 15.9* 16.0* PLT 187 236 292 BMP: Recent Labs 10/06/2131010/07/2141710/08/21 034 NA 138 138 135 K 5.1 4.8 5.0 CL 108* 107 105 CO2 26 28 29 BUN 47* 37* 35* CREATININE 2.11* 1.84* 1.65* GLUCOSE 131* 80 136* CALCIUM 8.5 9.1 8.8 ANIONGAP 4 2* 2* LIVER PROFILE:No results for input(s): AST, ALT, BILITOT, ALKPHOS, LABALBU, PROT in the last 72 hours. PT/INR: No results for input(s): PROTIME, INR in the last 72 hours. CARDIAC ENZYMES: No results for input(s): TROPONINI in the last 72 hours. Procalcitonin: Lab Results Component Value Date PROCAL 9.10/06/2021 Objective: Vitals: BP (!) 141/65 Pulse 79 Temp 97.9 F (36.6 C) (Temporal) Resp 16 Ht 5' 4.02 (1.626 m) Wt 286 lb 14.4 oz (130.1 kg) SpO2 100% BMI 49.22 kg/m Pulse Ox: SpO2 Av.8 % Min: 99 % Max: 100 % Supplemental O2: O2 Flow Rate (L/min): 3 L/min General appearance: No apparent distress HEENT: Normal cephalic, atraumatic without obvious deformity. Pupils equal, round, and reactive to light. Extra ocular muscles intact. Neck: Supple, with full range of motion. No jugular venous distention. Respiratory: Normal respiratory effort. Clear to auscultation, diminished Cardiovascular: Regular rate and rhythm with normal S1/S2 Abdomen: obese, non-tender, non-distended with + bowel sounds. No rebound or guarding. - martinez Musculoskeletal: LE non-pitting edema. Skin: dime sized ulceration on dorsal surface of left foot- healing well Neurologic: Neurovascularly intact without any focal sensory/motor deficits. Cranial nerves: II-XIIintact, grossly non-focal. Assessment/Plan E. coli bacteremia due to UTI -dasilva-sensitive - ATB stewardship rec transition to PO Cephalexin 1gm TID through 10/15. -TTE neg for vegetation Left foot cellulitis due to ulceration -continue Cefazolin -wound care input noted Severe sepsis -lactic acidosis improved -VSS -continue mgmt of above Acute resp insufficiency, chronic resp failure -usually wears 3l NC at home -has elevated d dimer -VQ neg for PE DARRELL, underlying CKD III -renal function improved today -Nephrology following -Furosemide, ARB on hold -avoid nephrotoxic agents HFpEF -given 1 dose of IV Furosemide, PO currently on hold -TTE reviewed -daily wts requested CAD -cont DAPT -cardiac meds -no acute anginal complaints DM II w/hyperglycemia, Hgb A1c 10.8% -continue SSI, Lantus -Endocrinology following -input noted -DC Jardiance/Trulicity HTN -continue to monitor Morbid obesity, Body mass index is 49.22 kg/m . -pt declined diet education Untreated DIYA -am labs, replace lytes prn -increase activity -DVT prophylaxis: [] Lovenox [x] Heparin [] SCDs [x] Encourage ambulation [] Already on Anticoagulation Advance Directive: Full Code Discharge planning: TBD - pt is medically optimized for DC; dtr to come in to see if she feels comfortable taking care of her at home; updated CM. Division of Hospitalist Medicine Inpatient Medical Services * Harish Chavis MD - 10/07/2021 12:44 PM EST [facility] Progress Note Subjective/ 66 y.o. year old female who we are seeing in consultation for DARRELL. BP has been stable Edema is stable No issues with urine output Lytes are noted EF 63% Responding to current rx No other new issues at this time 12 points ROS done and negative unless mentioned as above No change in PFSH All data labs/interval notes and overnight issues are reviewed Objective/ Vitals: 10/06/21201310/07/21 0751 10/07/21 1059 10/07/21 1123 BP: 94/78 133/62 99/62 (!) 125/53 Pulse: 78 77 72 71 Resp: 20 20 16 Temp: 97.4 F (36.3 C) 98.4 F (36.9 C) 97.6 F (36.4 C) 97.2 F (36.2 C) TempSrc: Temporal Temporal Temporal Temporal SpO2: 100% 100% 100% 100% Weight: Height: 24HR INTAKE/OUTPUT: No intake or output data in the 24 hours ending 10/07/21 1244 Constitutional: Alert, awake, no apparent distress Eyes: No icterus, no pallor HEENT: no pallor/cyanosis or icterus Cardiovascular: S1, S2 without m/r/g Respiratory: CTA B without w/r/r Abdomen: +bs, soft, nt Ext: 1+ BLE edema Neck: supple, no thyroid enlargement, no JVD elevation Skin: warm, moist, no rashes Data/ Recent Labs 10/05/21 0235 10/06/21 0311 10/07/21 0418 WBC 10.3 8.8 12.1* HGB 8.1* 8.1* 8.2* HCT 25.5* 25.4* 25.6* MCV 85.3 84.7 84.3 PLT 171 187 236 Recent Labs 10/05/21 0235 10/05/21 0235 10/05/21 0659 10/06/21 0311 10/07/21 0418 NA 139 -- -- 138 138 K 5.3* < > 5.0 5.1 4.8 CL 108* -- -- 108* 107 CO2 25 -- -- 26 28 GLUCOSE 182* -- -- 131* 80 BUN 55* -- -- 47* 37* CREATININE 2.40* -- -- 2.11* 1.84* < > = values in this interval not displayed. Assessment/ 1. DARRELL/ATN secondary to volume depletion related to poor oral intake in the setting of diuresis andARB use + perfusion injury from relative hypotension (improving) 2. CKD 3a, baseline 1.2 3. UTI, E. coli positive cultures 4. Altered mental status (resolved) 5. Hyperglycemia secondary to uncontrolled diabetes mellitus (resolved) 6. Uncontrolled diabetes mellitus type 2 7. Hyponatremia, secondary to hyperglycemia (resolved) 8. HFpEF (EF 65%) 9. COPD, history of Plan/ Serum creatinine continues to improve, baseline 1.2, nonoliguric, BP soft No acute need for [employer] at this time Volume status: euvolemia Upuc 0.1gm/day and meeting goal of <0.5gm/day Check albumin/creantinine ratio, recheck UA Urine sodium previously noted to be 9, FeNa less than 1 suggested prerenal While off lasix watch for worsening SOB and BLE edema C/w holding losartan and Lasix for now until DARRELL is resolved for 48 hours Allow for permissive hypertension for adequate renal perfusion and to promote recovery and hemodynamic flow US noted Tight control blood sugars will help to prevent progression of CKD and prevent pseudohyponatremia in the future Avoid nephrotoxins and contrast dye Dose all meds for current egfr No further changes We will follow Thank you for the consult and the opportunity to participate in the care of this patient. Please donot hesitate to contact us with any questions or concerns. Hema Carl APRN, TOUR ACTOR [facility] [phone] Attending Supervising Physician's Attestation Statement I discussed the evaluation and management with the nurse practitioner. I reviewed and agree with assessment and plan as documented in his/her note . * Ana Lilia Taylor RN - 10/07/2021 11:37 AM EST Patient recent BP 125/53 HR 77. Imdur XR 30 mg and Toprol XL 25 mg- asked Raul if need held. She wants me to give meds. * Gayle Feliciano MD - 10/07/2021 10:01 AM EST Images from the original note were not included. Department of Internal Medicine Division of Endocrinology, Diabetes, & Metabolism Endocrinology Note Patient Name: Kimberly Patel : 1955 AGE: 66 y.o. Room/Bed: [facility] Admission Date: 10/01/2021 11:48 PM Consult Date: 10/05/21 Visit Date: 10/07/2021 Reason for Endocrine Consult: T2IDDM Provider/Team Requesting Consult: IMS PCP: Moe Meyer MD Outpt Technical Documentation Specialist: no ASSESSMENT: Type 2 diabetes with hyperglycemia Long-term insulin use UTI -sepsis DARRELL on CKD Obesity-BMI 49 CAD PLAN: The inpt antihyperglycemic regimen will be as follows: Current sugars are too tightly controlled and patient's food consumption is on lower side Recommend lowering Lantus further to 30 units bid Recommend lowering Humalog to 20 units with meals ( to be skipped if not eating) Inpt GMF glucose goal < 180 FSBS to occur qAC/HS/PRN for s/s of hyper-/hypoglycemia. FSBS data will be used to determine the next steps in antihyperglycemic medication titration duringhospital stay. If hypoglycemia were to occur it should be treated per hospital protocol. Diet recommendation: restricted carb diet ANTICIPATED ENDOCRINE HOME GOING RECOMMENDATIONS: Optimized for Discharge from Endocrine standpoint: No Home Going Endocrine Rx Recommendations-- Lantus and Humalog per hospital doses Jardiance( UTI) and trulicity ( Adverse effects) to be stopped on discharge Outpt Follow Up-- Has an upcoming appointment with Dr Nikunj Post at [facility] Appointment request sent to Endo office Staff: No SUBJECTIVE/HPI: CHIEF COMPLAINT: Altered Mental Status Reason for admission: UTI - Sepsis and DARRELL Type of DM: 2 Onset of DM: several years ago Home DM Medication Regimen: Lantus 64 units bid and Humalog 30 Was on trulicity - GI effects with it Jardiance - stopped 3 days prior to admission because of adverse effects DM control (last A1c/glucose data): 10.8% in 07/2021 Current regimen: Trulicity , Lantus 50 bid , Humalog 26 with breakfast and lunch , Humalog 30 unitswith dinner and medium dose scale Steroids: No Renal functions:creatinine 1.84 - improving ( baseline 1.26) Diet/tube feeds: restricted carb diet Patient was seen at bedside She feels a little better , was able to tolerate some lunch. Did not eat breakfast today She just feels very weak and tired Current sugars 100-89-123 - 149 - 112 - 79 ( dose of Lantus was lowered yesterday , patient has notbeen receiving meal time dose of humalog since she has not been eating) Review of Systems As above OBJECTIVE: Vitals: 10/06/21 1056 10/06/21 1531 10/06/21201310/07/21 0751 BP: 137/67 (!) 159/71 94/78 133/62 Pulse: 82 79 78 77 Resp: 20 20 20 20 Temp: 98.2 F (36.8 C) 97.4 F (36.3 C) 97.4 F (36.3 C) 98.4 F (36.9 C) TempSrc: Temporal Temporal Temporal Temporal SpO2: 99% 100% 100% 100% Weight: Height: Physical Exam Constitutional: General: She is not in acute distress. Appearance: She is obese. HENT: Head: Normocephalic and atraumatic. Eyes: Extraocular Movements: Extraocular movements intact. Cardiovascular: Rate and Rhythm: Normal rate and regular rhythm. Heart sounds: No murmur heard. Pulmonary: Effort: Pulmonary effort is normal. No respiratory distress. Breath sounds: Normal breath sounds. No wheezing. Abdominal: General: There is distension. Tenderness: There is no abdominal tenderness. Musculoskeletal: General: Swelling present. Normal range of motion. Cervical back: Normal range of motion. Skin: General: Skin is warm. Neurological: General: No focal deficit present. Mental Status: She is alert and oriented to person, place, and time. Psychiatric: Mood and Affect: Mood normal. Behavior: Behavior normal. 24 hour intake/output: No intake or output data in the 24 hours ending 10/07/211001 Diet: ADULT DIET; Regular; 4 carb choices (60 gm/meal); Low Fat/Low Chol/High Fiber/CLARENCE Medications (as per EMR): HomeMeds: Prior to Admission medications Medication Sig Start Date End Date Taking? Authorizing Provider Dulaglutide (TRULICITY) 0.75 MG/0.5ML SOPN Inject 0.75 mg into the skin once a week Yes Historical Provider, ranolazine (RANEXA) 500 MG extended release tablet Take 1,000 mg by mouth 2 times daily Yes Historical Provider, losartan (COZAAR) 50 MG tablet Take 50 mg by mouth daily Yes Historical Provider, atorvastatin (LIPITOR) 80 MG tablet Take 80 mg by mouth nightly Yes Historical Provider, metoprolol succinate (TOPROL XL) 25 MG extended release tablet Take 25 mg by mouth daily Yes Historical Provider, clopidogrel (PLAVIX) 75 MG tablet Take 75 mg by mouth daily Yes Historical Provider, insulin glargine (LANTUS) 100 UNIT/ML injection vial Inject 60 Units into the skin nightly Yes Historical Provider, empagliflozin (JARDIANCE) 10 MG tablet Take 10 mg by mouth daily Yes Historical Provider, isosorbide mononitrate (IMDUR) 30 MG extended release tablet Take 30 mg by mouth daily Yes Historical Provider, ezetimibe (ZETIA) 10 MG tablet Take 10 mg by mouth daily Yes Historical Provider, omeprazole (PRILOSEC) 20 MG delayed release capsule Take 20 mg by mouth daily Yes Historical Provider, pregabalin (LYRICA) 75 MG capsule Take 75 mg by mouth 2 times daily. Yes Historical Provider, furosemide (LASIX) 40 MG tablet Take 40 mg by mouth 2 times daily Yes Historical Provider, Insulin Aspart, w/Niacinamide, (FIASP FLEXTOUCH) 100 UNIT/ML SOPN Inject 26 Units into the skin 2 times daily (with meals) With breakfast and lunch Yes Historical Provider, Insulin Aspart, w/Niacinamide, (FIASP FLEXTOUCH) 100 UNIT/ML SOPN Inject 30 Units into the skin Daily with supper Yes Historical Provider, Scheduled Meds: insulin glargine 50 Units SubCUTAneous BID insulin lispro 0-12 Units SubCUTAneous TID WC ceFAZolin 2,000 mg IntraVENous Q8H mupirocin Topical Daily insulin lispro 26 Units SubCUTAneous BID WC sodium chloride flush 5-40 mL IntraVENous 2 times per day pantoprazole 40 mg Oral QAM AC heparin (porcine) 5,000 Units SubCUTAneous 3 times per day atorvastatin 80 mg Oral Nightly clopidogrel 75 mg Oral Daily ezetimibe 10 mg Oral Daily [Held by provider] furosemide 40 mg Oral BID isosorbide mononitrate 30 mg Oral Daily [Held by provider] losartan 50 mg Oral Daily metoprolol succinate 25 mg Oral Daily pregabalin 75 mg Oral BID ranolazine 1,000 mg Oral BID insulin lispro 30 Units SubCUTAneous Dinner Continuous Infusions: sodium chloride dextrose PRN Meds:simethicone, sennosides-docusate sodium, chlorhexidine, sodium chloride flush, sodium chloride, acetaminophen OR acetaminophen, glucose, dextrose, glucagon (rDNA), dextrose, ipratropium-albuterol Diagnostic Workup: I reviewed pertinent Laboratory results, Radiographic results, and Other Clinical Notes at the timeof today's encounter. BMP: Recent Labs 10/05/21 0235 10/05/21 0235 10/05/21 0659 10/06/21 0311 10/07/21 0418 NA 139 -- -- 138 138 K 5.3* < > 5.0 5.1 4.8 CL 108* -- -- 108* 107 CO2 25 -- -- 26 28 BUN 55* -- -- 47* 37* CREATININE 2.40* -- -- 2.11* 1.84* GLUCOSE 182* -- -- 131* 80 < > = values in this interval not displayed. Glucose: Recent Labs 10/05/21 1115 10/05/21 1632 10/05/21 1939 10/06/21 0800 10/06/21 1125 10/06/21 1628 10/06/21200510/07/21 0537 POCGLU 187* 115* 168* 100 89 123* 149* 112* HgbA1C: No results for input(s): LABA1C in the last 72 hours. Hepatic: No results for input(s): ALKPHOS, ALT, AST, PROT, BILITOT, BILIDIR, LABALBU in the last 72 hours. Lipids: No results for input(s): CHOL, TRIG, HDL, LDLCALC in the last 72 hours. Invalid input(s): LDL TSH: No results found for: TSH, O0GJPMC, J0GLCPF, THYROIDAB, FT3, T4FREE Radiology reportsas per the Radiologist Radiology: CT Head WO Contrast Result Date: 10/02/2021 Patient Name: KIMBERLY PATEL Computed Tomography ACCESSION EXAM DATE/TIME PROCEDURE ORDERING PROVIDER [id number] 10/02/2021 02:[address] Head or Brain w/o MerlinCristine GUPTA QUIQUE Contrast CPT code 42309 Reason For Exam (CT Head or Brain w/o Contrast) change in mental status Report CLINICAL INDICATION: change in mental status COMPARISON: None Technique: Unenhanced [address] images were obtained from skull base to vertex. Images were reformatted in coronal and sagittal projections. Findings: Ventricles: Appropriate in size for the patient's age. Brain Parenchyma There is no CT evidence of an acute intracranial hemorrhage, territorial infarction, midline shift, mass effect, or extra-axial collection. The carver-white differentiation remains preserved and thebasal cisterns are patent. Bones: The osseous structures are unremarkable without evidence of a fracture. The paranasal sinuses and mastoid air cells remain well aerated. IMPRESSION: No acute intracranial abnormality. Report Dictated on --- Final --- Dictating Physician: MD YANETH, ELLY DELGADO Signed Date and Time: 10/02/2021 2:51 am Signed by: MD MORROW YUN ROBERT Transcribed Date and Time: 10/02/2021 2:53 XR CHEST PORTABLE Result Date: 10/02/2021 Patient Name: KIMBERLY PATEL Diagnostic Radiology ACCESSION EXAM DATE/TIME PROCEDURE ORDERING PROVIDER [id number] 10/02/2021 00:32 EST CR Chest Portable MerlinCristine GUPTA QUIQUE CPT code 02336 Reason For Exam (CR Chest Portable) sepsis Report CLINICAL INDICATION: sepsisCOMPARISON: None TECHNIQUE: Single portable AP radiograph of the chest. FINDINGS: LUNGS/PLEURA:Clear with no acute infiltrate or effusion. No pneumothorax. The trachea is midline. MEDIASTINUM:Heart size and mediastinal contours are normal. VASCULARITY: Normal BONES:Unremarkable IMPRESSION: Lungs clear with no acute infiltrate or effusion. Report Dictated on --- Final --- Dictating Physician: MD MORROW YUN ROBERT Signed Date and Time: 10/02/2021 0:37 am Signed by: MD MORROW YUN ROBERT Transcribed Date and Time: 10/02/2021 0:39 CT Abdomen Pelvis Wo Contrast Result Date: 10/02/2021 Patient Name: KIMBERLY PATEL Computed Tomography ACCESSION EXAM DATE/TIME PROCEDURE ORDERING PROVIDER [id number] 10/02/2021 02:[address] Abdomen/Pelvis (No 5816 -MANOJ, QUIQUE PO, No IV) CPT code 78120 Reason For Exam (CT Abdomen/Pelvis (No PO, No IV)) Abdominal pain distention, ascites, renal failure Report CLINICAL HISTORY: Abdominal pain distention, ascites, renal failure COMPARISON: None Technique: [address] images were obtained of the abdomen and pelvis without the use of intravenous contrast. Images were reformatted in coronal and sagittal projections. FINDINGS: Lung bases: The lung bases are clear. Major organs: A round calcification is present within the lateral right lobe of the liver. This is benign in appearance. The liver is otherwise normal. The patient is status post a cholecystectomy. The spleen, pancreas, and adrenal glands are normal. There is bilateral nonspecific perinephric fat stranding. The kidneys are otherwise normal. Bowel: The bowel is of normal caliber throughout without evidence of wall thickening or obstruction. The appendix is normal Lymph nodes and Mesentery: No enlarged intra-abdominal lymph nodes or free fluid. Mesentery is normal with no free air. Vasculature: The abdominal aorta is normal in caliber without evidence of aneurysmal dilatation. Mild scattered atherosclerotic calcifications. Soft tissues and Osseous structures: Multilevel degenerative changes of the lumbar spine. No suspicious osseous lesion. Pelvis: Major organs: The rectum, sigmoid colon, and uterus are normal. A Martinez catheter decompresses the bladder. Lymph nodes: No enlarged intrapelvic lymph nodes or free fluid. Computed Tomography Report Soft tissues and Osseous structures: No acute fracture. No suspicious osseous lesions. IMPRESSION: ABDOMEN: No acute intra-abdominal disease process. Normal appendix PELVIS: No acute intrapelvic disease process. Report Dictated on --- Final --- Dictating Physician: MD MORROW YUN ROBERT Signed Date and Time: 10/02/2021 2:58 am Signed by: MD MORROW YUN ROBERT Transcribed Date and Time: 10/02/2021 2:59 History/Other: Past Medical History: Past Medical History: Diagnosis Date CHF (congestive heart failure) (HCC) COPD (chronic obstructive pulmonary disease) (HCC) Diabetes mellitus (HCC) Past Surgical History: Past Surgical History: Procedure Laterality Date CHOLECYSTECTOMY ENDOSCOPY, COLON, DIAGNOSTIC throat biopsy Allergy(ies): Allergies Allergen Reactions Hydromorphone Hcl Other (See Comments) Metformin Diarrhea Other reaction(s): Unknown Metformin Hcl Other reaction(s): Unknown Morphine Other reaction(s): Unknown, Vomiting Ondansetron Other reaction(s): Unknown, Unknown Ondansetron Hcl Hydromorphone Nausea And Vomiting Penicillins Itching and Rash Tolerated Ceftriaxone 2017; tolerated pip-tazo 09/2021 Family History: History reviewed. No pertinent family history. Social History: Social History Tobacco Use Smoking status: Former Smoker Smokeless tobacco: Never Used Vaping Use Vaping Use: Never used Substance Use Topics Alcohol use: Not on file Drug use: Not on file Portions of the information within this encounter were entered using an electronic dictation system. Best attempts were made to edit/proofread the information prior to note completion. Despite the review of information, some errors may remain. If there are questions related to the information contained within the note please contact the signing physician directly. I spent 25 minutes with the pt which involved more than 51% of the time in coordination of care, medical evaluation, review of records, and/or counseling of the pt regarding his/her condition/diseasestate/prognosis on the date of this note. * Saniya Oshea APRN - HEATHER - 10/07/2021 9:53 AM EST Images from the original note were not included. Hospitalist Progress Note 10/07/2021 9:54 AM Subjective: Admit Date: 10/01/2021 PCP: Moe Meyer MD Room#: 243/9122 Interval History: Was able to sit at the side of the bed yesterday Still takes 3-4 staff members to get pt up Needs to have BM, but doesn't want to take any additional meds at this time Reports appetite is poor, mild nausea Denies chest pain, sob, abdominal pain, vomiting, diarrhea, fevers, or chills. ADULT DIET; Regular; 4 carb choices (60 gm/meal); Low Fat/Low Chol/High Fiber/CLARENCE Patient Vitals for the past 96 hrs (Last 3 readings): Weight 10/05/21 0344 286 lb 14.4 oz (130.1 kg) 10/04/21 0343 284 lb 6.4 oz (129 kg) Medications: sodium chloride dextrose insulin glargine 50 Units SubCUTAneous BID insulin lispro 0-12 Units SubCUTAneous TID WC ceFAZolin 2,000 mg IntraVENous Q8H mupirocin Topical Daily insulin lispro 26 Units SubCUTAneous BID WC sodium chloride flush 5-40 mL IntraVENous 2 times per day pantoprazole 40 mg Oral QAM AC heparin (porcine) 5,000 Units SubCUTAneous 3 times per day atorvastatin 80 mg Oral Nightly clopidogrel 75 mg Oral Daily ezetimibe 10 mg Oral Daily [Held by provider] furosemide 40 mg Oral BID isosorbide mononitrate 30 mg Oral Daily [Held by provider] losartan 50 mg Oral Daily metoprolol succinate 25 mg Oral Daily pregabalin 75 mg Oral BID ranolazine 1,000 mg Oral BID insulin lispro 30 Units SubCUTAneous Dinner LABS: CBC: Recent Labs 10/05/2123410/06/211 10/07/21 0418 WBC 10.3 8.8 12.1* RBC 2.99* 3.00* 3.04* HGB 8.1* 8.1* 8.2* HCT 25.5* 25.4* 25.6* MCV 85.3 84.7 84.3 RDW 16.2* 16.1* 15.9* PLT 171 187 236 BMP: Recent Labs 10/05/215 10/05/21235 09/08/21 0659 10/06/21 0311 10/07/21 0418 NA 139 -- -- 138 138 K 5.3* < > 5.0 5.1 4.8 CL 108* -- -- 108* 107 CO2 25 -- -- 26 28 BUN 55* -- -- 47* 37* CREATININE 2.40* -- -- 2.11* 1.84* GLUCOSE 182* -- -- 131* 80 CALCIUM 8.5 -- -- 8.5 9.1 ANIONGAP 5 -- -- 4 2* < > = values in this interval not displayed. Procalcitonin: Lab Results Component Value Date PROCAL 10/06/2021 Objective: Vitals: BP 133/62 Pulse 77 Temp 98.4 F (36.9 C) (Temporal) Resp 20 Ht 5' 4.02 (1.626 m) Wt 286 lb 14.4 oz (130.1 kg) SpO2 100% BMI 49.22 kg/m Pulse Ox: SpO2 Av.8 % Min: 99 % Max: 100 % Supplemental O2: O2 Flow Rate (L/min): 3 L/min General appearance: No apparent distress HEENT: Normal cephalic, atraumatic without obvious deformity. Pupils equal, round, and reactive to light. Extra ocular muscles intact. Neck: Supple, with full range of motion. No jugular venous distention. Respiratory: Normal respiratory effort. Clear to auscultation, diminished Cardiovascular: Regular rate and rhythm with normal S1/S2 Abdomen: obese, non-tender, non-distended with + bowel sounds. No rebound or guarding. - martinez Musculoskeletal: LE non-pitting edema. Skin: dime sized ulceration on dorsal surface of left foot- healing well Neurologic: Neurovascularly intact without any focal sensory/motor deficits. Cranial nerves: II-XIIintact, grossly non-focal. Assessment/Plan E. coli bacteremia due to UTI -dasilva-sensitive -continue Cefazolin for now; ATB stewardship rec transition to PO Cephalexin 1gm TID through 10/15. -TTE neg for vegetation Left foot cellulitis due to ulceration -continue Cefazolin -wound care input noted Severe sepsis -lactic acidosis improved -VSS -continue mgmt of above Acute resp insufficiency, chronic resp failure -usually wears 3l NC at home -has elevated d dimer -VQ neg for PE DARRELL, underlying CKD III -renal function improved today -Nephrology following -Furosemide, ARB on hold -avoid nephrotoxic agents HFpEF -given 1 dose of IV Furosemide, PO currently on hold -TTE reviewed -daily wts requested CAD -cont DAPT -cardiac meds -no acute anginal complaints DM II w/hyperglycemia, Hgb A1c 10.8% -continue SSI, Lantus -Endocrinology following -DC Jardiance/Trulicity HTN -continue to monitor Morbid obesity, Body mass index is 49.22 kg/m . -pt declined diet education Untreated DIYA -am labs, replace lytes prn -increase activity -DVT prophylaxis: [] Lovenox [x] Heparin [] SCDs [x] Encourage ambulation [] Already on Anticoagulation Advance Directive: Full Code Discharge planning: TBD -pt refusing SNF; prefers HHC w/dtr; will need to ensure that her daughter is comfortable caring for her at home since she is quite deconditioned. Division of Hospitalist Medicine Inpatient Medical Services * Gayle Feliciano MD - 10/06/2021 5:26 PM EST Images from the original note were not included. Department of Internal Medicine Division of Endocrinology, Diabetes, & Metabolism Endocrinology Note Patient Name: Kimberly Patel : 1955 AGE: 66 y.o. Room/Bed: 243/2432 Admission Date: 10/01/2021 11:48 PM Consult Date: 10/05/21 Visit Date: 10/06/2021 Reason for Endocrine Consult: T2IDDM Provider/Team Requesting Consult: IMS PCP: Moe Meyer MD Outpt Technical Documentation Specialist: no ASSESSMENT: Type 2 diabetes with hyperglycemia Long-term insulin use UTI -sepsis DARRELL on CKD Obesity-BMI 49 CAD PLAN: The inpt antihyperglycemic regimen will be as follows: Lower dose of Lantus to 50 units bid Set dose of Humalog to be held if patient is not consuming meals Lower sliding scale to medium dose scale Inpt GMF glucose goal < 180 FSBS to occur qAC/HS/PRN for s/s of hyper-/hypoglycemia. FSBS data will be used to determine the next steps in antihyperglycemic medication titration duringhospital stay. If hypoglycemia were to occur it should be treated per hospital protocol. Diet recommendation: restricted carb diet Technical Documentation Specialist On-Call: Dr Feliciano - until 5 pm Preferred Method of Communication/Reaching: [email or web address]. The above physician should be paged w/ questions/concerns about items being managed by Endocrinology Team. If there are any questions or concerns related to the info in this NOTE please page the armature connector software developer consultant directly. On-Call information can be found in the [employer] Directory. We can also be reached by [email or web address] communication system. We appreciate the opportunity to participate in this pt's ongoing medical care. ANTICIPATED ENDOCRINE HOME GOING RECOMMENDATIONS: Optimized for Discharge from Endocrine standpoint: No Home Going Endocrine Rx Recommendations-- Lantus and Humalog per hospital doses Jardiance( UTI) and trulicity ( Adverse effects) to be stopped on discharge Outpt Follow Up-- Has an upcoming appointment with Dr Nikunj Post at [facility] Appointment request sent to Endo office Staff: No SUBJECTIVE/HPI: CHIEF COMPLAINT: Altered Mental Status Reason for admission: UTI - Sepsis and DARRELL Type of DM: 2 Onset of DM: several years ago Home DM Medication Regimen: Lantus 64 units bid and Humalog 26-26-30 Was on trulicity - GI effects with it Jardiance - stopped 3 days prior to admission because of adverse effects DM control (last A1c/glucose data): 10.8% in 07/2021 Current regimen: Trulicity , Lantus 64 bid , Humalog 26 with breakfast and lunch , Humalog 30 unitswith dinner and high dose scale Steroids: No Renal functions:creatinine 2.11 ( baseline 1.26) Diet/tube feeds: restricted carb diet Patient was seen at bedside She endorses to feeling nauseous Has not been eating much today Current sugars 100-89-123 Review of Systems As above OBJECTIVE: Vitals: 10/06/21 0307 10/06/21 0844 10/06/21 1056 10/06/21 1531 BP: (!) 121/50 (!) 152/70 137/67 (!) 159/71 Pulse: 81 83 82 79 Resp: 16 20 20 20 Temp: 98.4 F (36.9 C) 98 F (36.7 C) 98.2 F (36.8 C) 97.4 F (36.3 C) TempSrc: Temporal Temporal Temporal Temporal SpO2: 99% 99% 99% 100% Weight: Height: Physical Exam Constitutional: General: She is not in acute distress. Appearance: She is obese. HENT: Head: Normocephalic and atraumatic. Eyes: Extraocular Movements: Extraocular movements intact. Cardiovascular: Rate and Rhythm: Normal rate and regular rhythm. Heart sounds: No murmur heard. Pulmonary: Effort: Pulmonary effort is normal. No respiratory distress. Breath sounds: Normal breath sounds. No wheezing. Abdominal: General: There is distension. Tenderness: There is no abdominal tenderness. Musculoskeletal: General: Swelling present. Normal range of motion. Cervical back: Normal range of motion. Skin: General: Skin is warm. Neurological: General: No focal deficit present. Mental Status: She is alert and oriented to person, place, and time. Psychiatric: Mood and Affect: Mood normal. Behavior: Behavior normal. 24 hour intake/output: Intake/Output Summary (Last 24 hours) at 10/06/2021 1726 Last data filed at 10/06/2021 0930 Gross per 24 hour Intake 240 ml Output 600 ml Net -360 ml Diet: ADULT DIET; Regular; 4 carb choices (60 gm/meal); Low Fat/Low Chol/High Fiber/CLARENCE Medications (as per EMR): HomeMeds: Prior to Admission medications Medication Sig Start Date End Date Taking? Authorizing Provider Dulaglutide (TRULICITY) 0.75 MG/0.5ML SOPN Inject 0.75 mg into the skin once a week Yes Historical Provider, ranolazine (RANEXA) 500 MG extended release tablet Take 1,000 mg by mouth 2 times daily Yes Historical Provider, losartan (COZAAR) 50 MG tablet Take 50 mg by mouth daily Yes Historical Provider, atorvastatin (LIPITOR) 80 MG tablet Take 80 mg by mouth nightly Yes Historical Provider, metoprolol succinate (TOPROL XL) 25 MG extended release tablet Take 25 mg by mouth daily Yes Historical Provider, clopidogrel (PLAVIX) 75 MG tablet Take 75 mg by mouth daily Yes Historical Provider, insulin glargine (LANTUS) 100 UNIT/ML injection vial Inject 60 Units into the skin nightly Yes Historical Provider, empagliflozin (JARDIANCE) 10 MG tablet Take 10 mg by mouth daily Yes Historical Provider, isosorbide mononitrate (IMDUR) 30 MG extended release tablet Take 30 mg by mouth daily Yes Historical Provider, ezetimibe (ZETIA) 10 MG tablet Take 10 mg by mouth daily Yes Historical Provider, omeprazole (PRILOSEC) 20 MG delayed release capsule Take 20 mg by mouth daily Yes Historical Provider, pregabalin (LYRICA) 75 MG capsule Take 75 mg by mouth 2 times daily. Yes Historical Provider, furosemide (LASIX) 40 MG tablet Take 40 mg by mouth 2 times daily Yes Historical Provider, Insulin Aspart, w/Niacinamide, (FIASP FLEXTOUCH) 100 UNIT/ML SOPN Inject 26 Units into the skin 2 times daily (with meals) With breakfast and lunch Yes Historical Provider, Insulin Aspart w/Niacinamide, (FIASP FLEXTOUCH) 100 UNIT/ML SOPN Inject 30 Units into the skin Daily with supper Yes Historical Provider, Scheduled Meds: ceFAZolin 2,000 mg IntraVENous Q8H mupirocin Topical Daily insulin lispro 26 Units SubCUTAneous BID WC sodium chloride flush 5-40 mL IntraVENous 2 times per day pantoprazole 40 mg Oral QAM AC heparin (porcine) 5,000 Units SubCUTAneous 3 times per day insulin lispro 0-18 Units SubCUTAneous TID WC insulin lispro 0-9 Units SubCUTAneous Nightly insulin glargine 64 Units SubCUTAneous BID atorvastatin 80 mg Oral Nightly clopidogrel 75 mg Oral Daily ezetimibe 10 mg Oral Daily [Held by provider] furosemide 40 mg Oral BID isosorbide mononitrate 30 mg Oral Daily [Held by provider] losartan 50 mg Oral Daily metoprolol succinate 25 mg Oral Daily pregabalin 75 mg Oral BID ranolazine 1,000 mg Oral BID insulin lispro 30 Units SubCUTAneous Dinner Continuous Infusions: sodium chloride dextrose PRN Meds:simethicone, sennosides-docusate sodium, chlorhexidine, sodium chloride flush, sodium chloride, acetaminophen OR acetaminophen, glucose, dextrose, glucagon (rDNA), dextrose, ipratropium-albuterol Diagnostic Workup: I reviewed pertinent Laboratory results, Radiographic results, and Other Clinical Notes at the timeof today's encounter. BMP: Recent Labs 10/04/21 0258 10/04/21 0258 10/05/21 0235 10/05/21 0659 10/06/21 0311 NA 136 -- 139 -- 138 K 5.0 < > 5.3* 5.0 5.1 CL 106 -- 108* -- 108* CO2 24 -- 25 -- 26 BUN 57* -- 55* -- 47* CREATININE 2.65* -- 2.40* -- 2.11* GLUCOSE 167* -- 182* -- 131* < > = values in this interval not displayed. Glucose: Recent Labs 10/04/21 2006 10/05/21 0632 10/05/21 1115 10/05/21 1632 10/05/21 1939 10/06/21 0800 10/06/21 1125 10/06/21 1628 POCGLU 301* 127* 187* 115* 168* 100 89 123* HgbA1C: No results for input(s): LABA1C in the last 72 hours. Hepatic: No results for input(s): ALKPHOS, ALT, AST, PROT, BILITOT, BILIDIR, LABALBU in the last 72 hours. Lipids: No results for input(s): CHOL, TRIG, HDL, LDLCALC in the last 72 hours. Invalid input(s): LDL TSH: No results found for: TSH, J5ZSOMC, E9WXNBD, THYROIDAB, FT3, T4FREE Radiology reportsas per the Radiologist Radiology: CT Head WO Contrast Result Date: 10/02/2021 Patient Name: KIMBERLY PATEL Computed Tomography ACCESSION EXAM DATE/TIME PROCEDURE ORDERING PROVIDER [id number] 10/02/2021 02:[address] Head or Brain w/o QUIQUE ROBERTS Contrast CPT code 85436 Reason For Exam (CT Head or Brain w/o Contrast) change in mental status Report CLINICAL INDICATION: change in mental status COMPARISON: None Technique: Unenhanced [address] images were obtained from skull base to vertex. Images were reformatted in coronal and sagittal projections. Findings: Ventricles: Appropriate in size for the patient's age. Brain Parenchyma There is no CT evidence of an acute intracranial hemorrhage, territorial infarction, midline shift, mass effect, or extra-axial collection. The carver-white differentiation remains preserved and thebasal cisterns are patent. Bones: The osseous structures are unremarkable without evidence of a fracture. The paranasal sinuses and mastoid air cells remain well aerated. IMPRESSION: No acute intracranial abnormality. Report Dictated on --- Final --- Dictating Physician: MD MORROW YUN ROBERT Signed Date and Time: 10/02/2021 2:51 am Signed by: MD MORROW YUN ROBERT Transcribed Date and Time: 10/02/2021 2:53 XR CHEST PORTABLE Result Date: 10/02/2021 Patient Name: KIMBERLY PATEL Diagnostic Radiology ACCESSION EXAM DATE/TIME PROCEDURE ORDERING PROVIDER [id number] 10/02/2021 00:32 EST CR Chest Portable 5816 -QUIQUE ARANDA CPT code 99728 Reason For Exam (CR Chest Portable) sepsis Report CLINICAL INDICATION: sepsisCOMPARISON: None TECHNIQUE: Single portable AP radiograph of the chest. FINDINGS: LUNGS/PLEURA:Clear with no acute infiltrate or effusion. No pneumothorax. The trachea is midline. MEDIASTINUM:Heart size and mediastinal contours are normal. VASCULARITY: Normal BONES:Unremarkable IMPRESSION: Lungs clear with no acute infiltrate or effusion. Report Dictated on --- Final --- Dictating Physician: MD MORROW YUN ROBERT Signed Date and Time: 10/02/2021 0:37 am Signed by: MD MORROW YUN ROBERT Transcribed Date and Time: 10/02/2021 0:39 CT Abdomen Pelvis Wo Contrast Result Date: 10/02/2021 Patient Name: KIMBERLY PTAEL Computed Tomography ACCESSION EXAM DATE/TIME PROCEDURE ORDERING PROVIDER [id number] 10/02/2021 02:[address] Abdomen/Pelvis (No 5816 -MANOJ QUIQUE PO, No IV) CPT code 88350 Reason For Exam (CT Abdomen/Pelvis (No PO, No IV)) Abdominal pain distention, ascites, renal failure Report CLINICAL HISTORY: Abdominal pain distention, ascites, renal failure COMPARISON: None Technique: [address] images were obtained of the abdomen and pelvis without the use of intravenous contrast. Images were reformatted in coronal and sagittal projections. FINDINGS: Lung bases: The lung bases are clear. Major organs: A round calcification is present within the lateral right lobe of the liver. This is benign in appearance. The liver is otherwise normal. The patient is status post a cholecystectomy. The spleen, pancreas, and adrenal glands are normal. There is bilateral nonspecific perinephric fat stranding. The kidneys are otherwise normal. Bowel: The bowel is of normal caliber throughout without evidence of wall thickening or obstruction. The appendix is normal Lymph nodes and Mesentery: No enlarged intra-abdominal lymph nodes or free fluid. Mesentery is normal with no free air. Vasculature: The abdominal aorta is normal in caliber without evidence of aneurysmal dilatation. Mild scattered atherosclerotic calcifications. Soft tissues and Osseous structures: Multilevel degenerative changes of the lumbar spine. No suspicious osseous lesion. Pelvis: Major organs: The rectum, sigmoid colon, and uterus are normal. A Martinez catheter decompresses the bladder. Lymph nodes: No enlarged intrapelvic lymph nodes or free fluid. Computed Tomography Report Soft tissues and Osseous structures: No acute fracture. No suspicious osseous lesions. IMPRESSION: ABDOMEN: No acute intra-abdominal disease process. Normal appendix PELVIS: No acute intrapelvic disease process. Report Dictated on --- Final --- Dictating Physician: MD MORROW YUN ROBERT Signed Date and Time: 10/02/2021 2:58 am Signed by: MD MORROW YUN ROBERT Transcribed Date and Time: 10/02/2021 2:59 History/Other: Past Medical History: Past Medical History: Diagnosis Date CHF (congestive heart failure) (HCC) COPD (chronic obstructive pulmonary disease) (HCC) Diabetes mellitus (HCC) Past Surgical History: Past Surgical History: Procedure Laterality Date CHOLECYSTECTOMY ENDOSCOPY, COLON, DIAGNOSTIC throat biopsy Allergy(ies): Allergies Allergen Reactions Hydromorphone Hcl Other (See Comments) Metformin Diarrhea Other reaction(s): Unknown Metformin Hcl Other reaction(s): Unknown Morphine Other reaction(s): Unknown, Vomiting Ondansetron Other reaction(s): Unknown, Unknown Ondansetron Hcl Hydromorphone Nausea And Vomiting Penicillins Itching and Rash Tolerated Ceftriaxone 2017; tolerated pip-tazo 09/2021 Family History: History reviewed. No pertinent family history. Social History: Social History Tobacco Use Smoking status: Former Smoker Smokeless tobacco: Never Used Vaping Use Vaping Use: Never used Substance Use Topics Alcohol use: Not on file Drug use: Not on file Portions of the information within this encounter were entered using an electronic dictation system. Best attempts were made to edit/proofread the information prior to note completion. Despite the review of information, some errors may remain. If there are questions related to the information contained within the note please contact the signing physician directly. I spent 25 minutes with the pt which involved more than 51% of the time in coordination of care, medical evaluation, review of records, and/or counseling of the pt regarding his/her condition/diseasestate/prognosis on the date of this note. * Dheeraj Spencer MD - 10/06/2021 2:18 PM EST [facility] Progress Note Subjective/ 66 y.o. year old female who we are seeing in consultation for DARRELL. BP has been stable Edema is present No issues with urine output Lytes are noted EF 63% Responding to current rx No other new issues at this time 12 points ROS done and negative unless mentioned as above No change in PFSH All data labs/interval notes and overnight issues are reviewed Objective/ Vitals: 10/05/21 2243 10/06/21 0307 10/06/21 0844 10/06/21 1056 BP: (!) 151/72 (!) 121/50 (!) 152/70 137/67 Pulse: 73 81 83 82 Resp: 18 16 20 20 Temp: 97.9 F (36.6 C) 98.4 F (36.9 C) 98 F (36.7 C) 98.2 F (36.8 C) TempSrc: Temporal Temporal Temporal Temporal SpO2: 99% 99% 99% 99% Weight: Height: 24HR INTAKE/OUTPUT: Intake/Output Summary (Last 24 hours) at 10/06/2021 1418 Last data filed at 10/06/2021 0930 Gross per 24 hour Intake 240 ml Output 600 ml Net -360 ml Constitutional: Alert, awake, no apparent distress Eyes: No icterus, no pallor HEENT: no pallor/cyanosis or icterus Cardiovascular: S1, S2 without m/r/g Respiratory: CTA B without w/r/r Abdomen: +bs, soft, nt Ext: 2+ BLE edema Neck: supple, no thyroid enlargement, no JVD elevation Skin: warm, moist, no rashes Data/ Recent Labs 10/04/218 10/05/215 10/06/21 0311 WBC 16.5* 10.3 8.8 HGB 8.3* 8.1* 8.1* HCT 25.7* 25.5* 25.4* MCV 84.3 85.3 84.7 PLT 178 171 187 Recent Labs 10/04/2125710/04/2125710/05/215 10/05/21 0659 10/06/21 0311 NA 136 -- 139 -- 138 K 5.0 < > 5.3* 5.0 5.1 CL 106 -- 108* -- 108* CO2 24 -- 25 -- 26 GLUCOSE 167* -- 182* -- 131* BUN 57* -- 55* -- 47* CREATININE 2.65* -- 2.40* -- 2.11* < > = values in this interval not displayed. Assessment/ DARRELL/ATN secondary to volume depletion related to poor oral intake in the setting of diuresis and ARB use + perfusion injury from relative hypotension (improving) CKD 3 a, baseline 1.2 UTI, E. coli positive cultures Altered mental status Hyperglycemia secondary to uncontrolled diabetes mellitus (resolved) Uncontrolled diabetes mellitus type 2 Hyponatremia, secondary to hyperglycemia (resolved) HFpEF (EF 65%) COPD, history of Plan/ Serum creatinine continues to improve, baseline 1.2, nonoliguric, BP soft No acute need for DIVISION TOLL WIRE CHIEF at this time Volume status: euvolemia Repeat urine studies, check urine protein creatinine ratio, waiting for collection of sample Urine sodium previously noted to be 9, FeNa less than 1 suggesting prerenal Allow for permissive hypertension for adequate renal perfusion and to promote recovery and hemodynamic flow Watch edema while off lasix C/w holding losartan and Lasix for now until DARRELL is resolved for 48 hours minimally US noted Tight control blood sugars will help to prevent progression of CKD and prevent pseudohyponatremia in the future Avoid nephrotoxins and contrast dye Dose all meds for current egfr No further changes We will follow Thank you for the consult and the opportunity to participate in the care of this patient. Please donot hesitate to contact us with any questions or concerns. Hema Carl APRN, TOUR ACTOR [facility] [phone] I have independently seen and assessed the patient and agree with above documented A & P, any variance is noted below Same plan as above Melvin Spencer MD [facility] team * Saniya Oshea APRN - TOUR ACTOR - 10/06/2021 10:30 AM EST Images from the original note were not included. Hospitalist Progress Note 10/06/2021 10:30 AM Subjective: Admit Date: 10/01/2021 PCP: Moe Meyer MD Room#: 243/2432 Interval History: No overnight issues. Breathing ok. Wants to go home with her daughter at [place], not SNF. Does c/o significant weakness Per staff - takes 3-4 ppl to stand her up Pt wants to get up to [facility] - having a difficult time using bedpan ->has urge to defecate Denies chest pain, abdominal pain, nausea, vomiting, diarrhea, constipation, fevers, or chills. ADULT DIET; Regular; 4 carb choices (60 gm/meal); Low Fat/Low Chol/High Fiber/CLARENCE Patient Vitals for the past 96 hrs (Last 3 readings): Weight 10/05/21 0344 286 lb 14.4 oz (130.1 kg) 10/04/21 0343 284 lb 6.4 oz (129 kg) 10/03/21 0709 287 lb 5 oz (130.3 kg) Medications: sodium chloride dextrose ceFAZolin 2,000 mg IntraVENous Q8H mupirocin Topical Daily insulin lispro 26 Units SubCUTAneous BID WC sodium chloride flush 5-40 mL IntraVENous 2 times per day pantoprazole 40 mg Oral QAM AC heparin (porcine) 5,000 Units SubCUTAneous 3 times per day insulin lispro 0-18 Units SubCUTAneous TID insulin lispro 0-9 Units SubCUTAneous Nightly insulin glargine 64 Units SubCUTAneous BID atorvastatin 80 mg Oral Nightly clopidogrel 75 mg Oral Daily ezetimibe 10 mg Oral Daily [Held by provider] furosemide 40 mg Oral BID isosorbide mononitrate 30 mg Oral Daily [Held by provider] losartan 50 mg Oral Daily metoprolol succinate 25 mg Oral Daily pregabalin 75 mg Oral BID ranolazine 1,000 mg Oral BID insulin lispro 30 Units SubCUTAneous Dinner LABS: CBC: Recent Labs 10/04/218 10/05/2123410/06/21 0311 WBC 16.5* 10.3 8.8 RBC 3.05* 2.99* 3.00* HGB 8.3* 8.1* 8.1* HCT 25.7* 25.5* 25.4* MCV 84.3 85.3 84.7 RDW 16.3* 16.2* 16.1* PLT 178 171 187 BMP: Recent Labs 10/04/2125710/04/2125710/05/2123410/05/21 0659 10/06/21 0311 NA 136 -- 139 -- 138 K 5.0 < > 5.3* 5.0 5.1 CL 106 -- 108* -- 108* CO2 24 -- 25 -- 26 BUN 57* -- 55* -- 47* CREATININE 2.65* -- 2.40* -- 2.11* GLUCOSE 167* -- 182* -- 131* CALCIUM 8.2* -- 8.5 -- 8.5 ANIONGAP 5 -- 5 -- 4 < > = values in this interval not displayed. Procalcitonin: Lab Results Component Value Date PROCAL 9.92 10/06/2021 Objective: Vitals: BP (!) 152/70 Pulse 83 Temp 98 F (36.7 C) (Temporal) Resp 20 Ht 5' 4.02 (1.626 m) Wt 286 lb 14.4 oz (130.1 kg) SpO2 99% BMI 49.22 kg/m Pulse Ox: SpO2 Av.3 % Min: 99 % Max: 100 % Supplemental O2: O2 Flow Rate (L/min): 3 L/min General appearance: No apparent distress HEENT: Normal cephalic, atraumatic without obvious deformity. Pupils equal, round, and reactive to light. Extra ocular muscles intact. Neck: Supple, with full range of motion. No jugular venous distention. Respiratory: Normal respiratory effort. Clear to auscultation, diminished Cardiovascular: Regular rate and rhythm with normal S1/S2 Abdomen: obese, non-tender, non-distended with + bowel sounds. No rebound or guarding. - martinez Musculoskeletal: LE non-pitting edema. Skin: dime sized ulceration on dorsal surface of left foot- healing well Neurologic: Neurovascularly intact without any focal sensory/motor deficits. Cranial nerves: II-XIIintact, grossly non-focal. Assessment/Plan E. coli bacteremia due to UTI -dasilva-sensitive -continue Cefazolin -TTE neg for vegetation Left foot cellulitis due to ulceration -continue Cefazolin -wound care input noted Severe sepsis -lactic acidosis improved -VSS -continue mgmt of above Acute resp insufficiency, chronic resp failure -usually wears 3l NC at home -has elevated d dimer -VQ reordered (pt agreeable) DARRELL, underlying CKD III -renal function improved today -Nephrology following -Furosemide, ARB on hold -avoid nephrotoxic agents HFpEF -given 1 dose of IV Furosemide, PO currently on hold -TTE reviewed -daily wts requested CAD -cont DAPT -cardiac meds -no acute anginal complaints DM II w/hyperglycemia, Hgb A1c 10.8% -continue SSI, Lantus -Endocrinology following -DC Jardiance/Trulicity HTN -continue to monitor Morbid obesity, Body mass index is 49.22 kg/m . -pt declined diet education Untreated DIYA -am labs, replace lytes prn -increase activity -DVT prophylaxis: [] Lovenox [x] Heparin [] SCDs [x] Encourage ambulation [] Already on Anticoagulation Advance Directive: Full Code Discharge planning: TBD -pt refusing SNF; prefers C w/dtr; will need to ensure that her daughter is comfortable caring for her at home since she is quite deconditioned. [facility] Division of Hospitalist Medicine Inpatient Medical Services * Odette Hogan, PT - 10/05/2021 3:24 PM EST Physical Therapy Facility/Department: [facility] Initial Assessment NAME: Kimberly Patel : 1955 Date of Service: 10/05/2021 Discharge Recommendations: Subacute/Group Home Facility PT Equipment Recommendations Equipment Needed: Yes Mobility Devices: Wheelchair Wheelchair: Standard Assessment Body structures, Functions, Activity limitations: Decreased functional mobility ; Decreased ROM; Decreased strength; Decreased safe awareness; Decreased endurance; Decreased balance; Increased pain; Decreased posture Assessment: Patient admitted 10/01 with AMS from home and was found by daughter covered in feces andurine. Patient found to have septicemia and UTI. Patient presents with the above deficits limiting her functional independence. On evaluation patient requires MaxA x2 for all bed mobility and transfers and unable to perform any ambulation due to rapid fatigue and weakness. Patient should benefit from skilled PT to increase strength, endurance and safety with mobility. Prognosis: Good Decision Making: Medium Complexity History: Patient admitted 10/01 with AMS from home and was found by daughter covered in feces and urine. Patient found to have septicemia and UTI. PMH listed below. Exam: AM-PAC Clinical Presentation: Patient has PMH as indicated below that contributes to her clinical presentation. At baseline patient lives daughter and completes functional mobility with a rolling computer chair. Patient is currently limited by weakness and rapid fatigue and unsafe to return home. Recommend SNF to optimize recovery. PT Education: Goals; PT Role; Plan of Care; Precautions; Transfer Training; Energy Conservation; General Safety; Functional Mobility Training; Injury Prevention REQUIRES PT FOLLOW UP: Yes Activity Tolerance Activity Tolerance: Patient limited by fatigue; Patient limited by endurance; Patient limited by pain Patient Diagnosis(es): The primary encounter diagnosis was Septicemia (HCC). Diagnoses of Altered mental status, unspecified altered mental status type and Urinary tract infection without hematuria, site unspecified were also pertinent to this visit. has a past medical history of CHF (congestive heart failure) ([facility]), COPD (chronic obstructive pulmonary disease) ([facility]), and Diabetes mellitus ([facility]). has a past surgical history that includes Cholecystectomy and Endoscopy, colon, diagnostic. Restrictions Restrictions/Precautions Restrictions/Precautions: General Precautions Required Braces or Orthoses?: No Vision/Hearing Vision: Within Functional Limits Hearing: Within functional limits Subjective General Chart Reviewed: Yes Patient assessed for rehabilitation services?: Yes Family / Caregiver Present: No Follows Commands: Within Functional Limits General Comment Comments: Per RN patient okay for therapy. Subjective Subjective: Patietn lying in bed and agreeable to therapy with encouragement. Pain Screening Patient Currently in Pain: Yes (chronic back pain, did not rate) Vital Signs Patient Currently in Pain: Yes (chronic back pain, did not rate) Orientation Orientation Overall Orientation Status: Within Functional Limits Social/Functional History Social/Functional History Lives With: Daughter Type of Home: House Home Layout: One level Home Access: Stairs to enter with rails Entrance Stairs - Number of Steps: 1 Bathroom Shower/Tub: Walk-in shower, Shower chair with back Bathroom Toilet: Standard Bathroom Equipment: Shower chair Bathroom Accessibility: Walker accessible Home Equipment: Rolling walker Receives Help From: Family ADL Assistance: Independent Homemaking Assistance: Needs assistance Homemaking Responsibilities: Yes Ambulation Assistance: Needs assistance (Pt stating she uses office chair to wheel around house) Transfer Assistance: Independent Active Field Technician: No Patient's Field Technician Info: DAUGHTER Mode of Transportation: SUV Education: NA 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 Leisure & Hobbies: NA IADL Comments: NA Additional Comments: NA Cognition Cognition Overall Cognitive Status: WFL Objective Observation/Palpation Posture: Poor (Kyphosis) Observation: Pt observed with purwick in place, L foot wrapped, and on 4 L O2 via nasal cannula AROM RLE (degrees) RLE AROM: WFL AROM LLE (degrees) LLE AROM : WFL Strength RLE Strength RLE: Exception Comment: <3/5 observed functionally Strength LLE Strength LLE: Exception Comment: <3/5 observed functionally Sensation Overall Sensation Status: WFL (no numbness or tingling noted) Bed mobility Supine to Sit: 2 Person assistance; Maximum assistance Sit to Supine: 2 Person assistance; Maximum assistance Scootin Person assistance; Maximal assistance Comment: HOB elevated and increased time to complete. Patient requires MaxA x2 for all aspects of bed mobility. No c/o dizziness with change in position. Transfers Sit to Stand: Maximum Assistance; 2 Person Assistance Stand to sit: Maximum Assistance; 2 Person Assistance Comment: x1 from EOB with failed initial attempt and then completed stand with bed level raised. Noacute LOB or dizziness noted. Rapid fatigue with about 10second stand. Ambulation Ambulation?: No Balance Posture: Fair Sitting - Static: Good; - Sitting - Dynamic: Fair; + Standing - Static: Poor; + Plan Plan Times per week: 5 visits Current Treatment Recommendations: Strengthening, ROM, Balance Training, Endurance Training, Transfer Training, Gait Training, Pain Management, Safety Education & Training, Patient/Caregiver Education & Training, Equipment Evaluation, Education, & procurement, Positioning Plan Comment: all goals and/or treatment were established in collaboration with patient Safety Devices Type of devices: All fall risk precautions in place, Gait belt, Patient at risk for falls, Call light within reach, Left in bed, Nurse notified Restraints Initially in place: No AM-PAC Score AM-PAC Inpatient Mobility Raw Score : 7 (10/05/211523) AM-PAC Inpatient T-Scale Score : 26.42 (10/05/211523) Mobility Inpatient CMS 0-100% Score: 92.36 (10/05/211523) Mobility Inpatient CMS G-Code Modifier : CM (10/05/211523) Goals Short term goals Time Frame for Short term goals: 5 visits Short term goal 1: Patient will complete bed mobility with Michelle to increase independence. Short term goal 2: Patient will complete functional transfers with ModA and FWW in preparation for gait. Short term goal 3: Patient will take multiple side steps alone EOB with FWW and ModA to increase function. Short term goal 4: Patient will complete 1-2 set/ 10 reps LE exercises to increase strength and tolerance for functional activity. Patient Goals Patient goals : Patient states she wants to return home. Therapy Time Individual Concurrent Group Co-treatment Time In 1322 (co-eval with OT) Time Out 1337 Minutes 15 Odette Hogan PT * Shea Johnson OT - 10/05/2021 2:34 PM EST Occupational Therapy Occupational Therapy Initial Assessment Date: 10/05/2021 Patient Name: Kimberly Patel : 1955 Date of Service: 10/05/2021 Discharge Recommendations: Subacute/Group Home Facility, Patient would benefit from continued therapy after discharge OT Equipment Recommendations Equipment Needed: Yes Mobility Devices: Wheelchair Wheelchair: Standard Other: Pt requires a wc for mobility. She currently uses a computer chair which presents high safety risks. Assessment Performance deficits / Impairments: Decreased strength; Decreased endurance; Decreased ADL status; Decreased high-level IADLs; Decreased posture; Decreased ROM; Decreased balance; Decreased functional mobility Assessment: Pt was admitted to ED on 10/01 for evaluation of pulmonary status. Pt found to have L foot cellulitis and wound. Pt lives with daughter in one sotry home. Pt reporting she manuevers through home by wheeling in office chair. Upon eval, pt requiring min-mod A for UB ADLs and max-total assist for LB ADLs and 2 person assist for STS. Pt could benefit from acute services to address self care , strengthening, balance, activity tolerance, and transfers. Recommending SNF for continued OT services, however pt not dagreeable to placement. Prognosis: Fair Decision Making: Medium Complexity Exam: AM-PAC Assistance / Modification: max-total assist OT Education: OT Role; Plan of Care; Transfer Training Barriers to Learning: none REQUIRES OT FOLLOW UP: Yes Activity Tolerance Activity Tolerance: Patient limited by fatigue Safety Devices Safety Devices in place: Yes Type of devices: All fall risk precautions in place; Call light within reach; Gait belt; Patient atrisk for falls; Left in bed; Nurse notified Patient Diagnosis(es): The primary encounter diagnosis was Septicemia ([facility]). Diagnoses of Altered mental status, unspecified altered mental status type and Urinary tract infection without hematuria, site unspecified were also pertinent to this visit. has a past medical history of CHF (congestive heart failure) (HCC), COPD (chronic obstructive pulmonary disease) (HCC), and Diabetes mellitus (HCC). has a past surgical history that includes Cholecystectomy and Endoscopy, colon, diagnostic. Restrictions Restrictions/Precautions Restrictions/Precautions: General Precautions Required Braces or Orthoses?: No Subjective General Chart Reviewed: Yes Patient assessed for rehabilitation services?: Yes Additional Pertinent Hx: CKD, chronic respiratory failure on 3 L O2 at baseline, obesity, IDDM, Bipolar, COPD, CHF Family / Caregiver Present: No Subjective Subjective: Pt was supine in bed at arrival. Pt agreeable to OT evaluation. General Comment Comments: Per RN, pt OK to see Patient Currently in Pain: Yes (chronic back pain, did not rate) Vital Signs Patient Currently in Pain: Yes (chronic back pain, did not rate) Social/Functional History Social/Functional History Lives With: Daughter Type of Home: House Home Layout: One level Home Access: Stairs to enter with rails Entrance Stairs - Number of Steps: 1 Bathroom Shower/Tub: Walk-in shower, Shower chair with back Bathroom Toilet: Standard Bathroom Equipment: Shower chair Bathroom Accessibility: Walker accessible Home Equipment: Rolling walker Receives Help From: Family ADL Assistance: Independent Homemaking Assistance: Needs assistance Homemaking Responsibilities: Yes Ambulation Assistance: Needs assistance (Pt stating she uses office chair to wheel around house) Transfer Assistance: Independent Active Field Technician: No Patient's Field Technician Info: DAUGHTER Mode of Transportation: [facility] Education: NA 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 Leisure & Hobbies: NA IADL Comments: NA Additional Comments: NA Objective Vision: Within Functional Limits Hearing: Within functional limits Orientation Overall Orientation Status: Within Functional Limits Observation/Palpation Posture: Poor (Kyphosis) Observation: Pt observed with purwick in place, L foot wrapped, and on 4 L O2 via nasal cannula Balance Sitting Balance: Contact guard assistance Standing Balance: Dependent/Total Standing Balance Time: < 30 seconds Activity: static standing Comment: Pt required max of 2 for static standing for elevation and balance Functional Mobility Functional - Mobility Device: Rolling Walker Assist Level: Dependent/Total Functional Mobility Comments: Pt unable to take steps using fww and two person assist. ADL Feeding: Modified independent Grooming: Minimal assistance UE Bathing: Moderate assistance LE Bathing: Dependent/Total UE Dressing: Maximum assistance LE Dressing: Dependent/Total Toileting: Dependent/Total Additional Comments: Pt toileting at bed level with purewick, total required for hygiene. Pt unableto don socks Bed mobility Supine to Sit: 2 Person assistance; Maximum assistance Sit to Supine: 2 Person assistance; Maximum assistance Scootin Person assistance; Maximal assistance Comment: Pt requiring 2 person max assist for bed mobility for BLE mgmt and trunk mgmt. No c/o dizziness. Transfers Sit to stand: 2 Person assistance; Dependent/Total (max of 2) Stand to sit: 2 Person assistance; Dependent/Total (max of 2 for safety and controlled descent) Transfer Comments: First attempt was unsuccessful despite 2 person assist. Pt requires assist for elevation from bed with bed height elevated and balance in standing. Pt requires 2 person assist. Fatigues rapidly, only able to tolerate standing for seconds. Cognition Overall Cognitive Status: WFL Sensation Overall Sensation Status: WFL (no numbness or tingling noted) LUE AROM (degrees) LUE AROM : Exceptions LUE General AROM: < 90 degrees shoulder flexion functionally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 Date of Service: 10/03/2021 Evaluation orders received and chart reviewed. Per RN, pt OK to see. Upon therapist arrival, pt reported that she is too tired to work with therapy. Pt educated on importance of participating but despite encouragement was not willing to attempt this AM. Will continue to monitor and re-attempt as able. Shea Johnson OT * Duyen Paz APRN - TOUR ACTOR - 10/03/2021 10:31 AM EST Progress Note 10/03/2021 10:31 AM Name: Kimberly Patel IP Day: 1 Admit Date: 10/01/2021 11:48 PM PCP: Moe Meyer MD Code Status: Full Code Subjective: Feels tired. We are bothering her too much and she can't get good rest. Denies pain, f/c, cp, n/v/d. Feels her breathing is at baseline. Appetite improving. Physical Examination: PHYSICAL EXAM: Vitals: BP (!) 106/54 Pulse 71 Temp 97.1 F (36.2 C) (Temporal) Resp 18 Ht 5' 4 (1.626 m) Wt 287 lb 5 oz (130.3 kg) SpO2 100% BMI 49.32 kg/m BMI Classification: Morbidly Obese (>40.0) General appearance: No apparent distress, appears stated age and cooperative. HEENT: Normal cephalic, atraumatic without obvious deformity. Conjunctivae/corneas clear. Neck: thick Respiratory: Diminished all gaming, limited inspiratory effort, 4 L NC O2 Cardiovascular: tachy, regular, s1s2 Abdomen: Soft, non-tender, non-distended with normal bs x 4 Musculoskeletal: BLE non pitting edema, wound to dorsal aspect of left foot, midfoot with surrounding erythema and swelling. Skin: Skin color, texture, turgor dry, wound on foot as above. Neurologic: Lethargic, oriented x 3, grossly non focal : martinez to gravity draining clear, dark brown urine Data: Labs: Recent Labs 10/02/21 0029 WBC 14.2* HGB 10.3* PLT 228 Recent Labs 10/02/21 1213 10/03/21 0241 NA 131* 133* K 5.4* 4.8 CL 103 103 CO2 22 23 BUN 46* 51* CREATININE 2.28* 2.51* GLUCOSE 476* 200* Recent Labs 10/02/21 1213 10/03/21 0241 AST 45 18 ALT 18 14 BILITOT 0.5 0.6 ALKPHOS 93 60 Assessment and Plan: Sepsis - UTI, 1/ BC 10/02/21 + for E. Coli - lactic acid on admission 3.2 >> 2.0 >> 1.8 >> 0.9 - VSS - legionella, strep pna negative - procal 10/02/21 75.82 - broad spectrum atbx with vanc / zosyn for now, narrow pending sensitivities - pt requested that fluids be stopped due to feeling full of fluid and her history of heart failure. Last echo 02/07/21 in care everywhere, think it's reasonable to repeat in setting of sepsis and her history - discussed with ID stewardship 10/03/21, stop vanc. Cont pip/tazo pending sensitivities - monitor labs, vitals DARRELL on CKD 3 - creat 08/26/21 1.26, 2.31 on admission 10/02/21, worsening now to 2.51 - will obtain urine lytes, renal US - will start IVF slowly but have to balance history of CHF - avoid nephrotoxic medications, monitor labs HfrEf - last EF 52% 02/07/21 on echo in care everywhere - will obtain BNP - gave patient dose of lasix 40mg IVP 10/03/21 - restarted patient's home Lasix 40mg PO BID - echo as above - cardiac diet, I/Os, daily weights CAD - known to cardiology at [facility], chart extensively reviewed - s/p PCI in 2010, 2012; NSTEMI - cont DAPT 2/2 previous in stent stenosis - asa, plavix, imdur, ranolazine, metoprolol XL, losartan, statin - no acute anginal complaints at this time - tele, monitor HTN - hypotensive / soft BP in setting of sepsis, CAD - monitor closely, cont meds for now BP Readings from Last 3 Encounters: 10/03/21 (!) 106/54 T2IDDM - uncontrolled with hyperglycemia - A1c in Care Everywhere 08/26/21 10.8 - extensive chart review completed, obtained insulin regimen - per last OV note for T2DM 09/16/21 INCREASE Lantus to 64 units BID INCREASE bolus insulin to 26 units before breakfast, 26 units before lunch, 30 units before dinner -- as intended at last fern May complete remaining Humalog supply prior to switching to Fiasp, if desire Continue all other DM meds as prescribed: Continue Jardiance 10 mg daily Continue Trulicity 0.75 mg weekly - BS have improved since re-starting regimen, hold on endo consult for now since patient recently had A1c and adjustment to regimen. If remains uncontrolled, will consider consult - monitor Sleep apnea - untreated Obesity - Body mass index is 49.32 kg/m . DVT / gi ppx - hep sq, tolerating diet DISCHARGE PLANNING Pt from home, lives with daughter PT / OT Possible home care * Marsha Shahid - 10/03/2021 8:57 AM EST Nutrition rescreen completed. Patient referred to the Dietitian. * Erick More RN - 10/03/2021 3:59 AM EST BC 1/2 positive for gram negative rods and E.coli. Dr. nKutson notified. * Candace Garay LPN - 10/02/2021 2:40 PM EST Report given to Jaky on 2E. Patient being transferred to room 243-2 * Haleigh Eng RN - 10/02/2021 11:04 AM EST Patients am blood glucose at bedside was 519 reported by nursing tech. Attempted two sticks for cmp phlebotomy without success, MATHEMATICS TECHNICIAN attempted two as well. Left message for DIVISION TOLL WIRE CHIEF nurse to try and access lab on difficult stick patient. In the meantime, patient stable and lantus, Humalog administered for pt. to cover elevated glucose. Will recheck prior to lunch. IMS Physician will be notified * Duyen Paz APRN - TOUR ACTOR - 10/02/2021 10:02 AM EST Same day, no bill Pt BS is > 500, states she did not take her insulin yesterday. Requesting Lasix, I feel full. Discussed with attending, Dr. Lai - transfer to tele - Lasix 40mg IVP x 1 , stop fluids - procal, legionella, strep pna, abg - changed insulin regimen per findings in chart before ; see orders and below - labs, vitals, monitor Chart review: A1c 08/26/21 10.8, care everywhere INCREASE Lantus to 64 units BID INCREASE bolus insulin to 26 units before breakfast, 26 units before lunch, 30 units before dinner -- as intended at last fern May complete remaining Humalog supply prior to switching to Fiasp, if desire Continue all other DM meds as prescribed: Continue Jardiance 10 mg daily Continue Trulicity 0.75 mg weekly CHF (Echo 02/07/21 ef 52%), COPD with chronic resp failure, CAD, morbid obesity. Cardiology OV Note 02/24/21 CCAG: coronary artery disease with previous PCI in 2010, 2012, after second procedures is recommended to continue dual antiplatelet secondary to previous in-stent restenosis. She has history of chronic diastolic heart failure and recently has had exacerbation. She has history of hypertension, dyslipidemia, T2DM, COPD with chronic respiratory failure on oxygen 3 L nasal cannula, chronic stable angina which was initially improved with Ranexa now on isosorbide. Chronic dyspnea on exertion, recently treated for cellulitis in the setting of heart failure exacerbation in October 2020. Previous Covid infection in September 2020, and probable obstructive sleep apnea. She was seen by Dr. Snow, and the interventional team, she had echocardiogram performed which showed her EF to be stable at 52%, there was resting wall motion abnormality noted in her LAD territory,she also had SPECT stress testing which showed no ischemia but large fixed perfusion defect in the LAD. There was akinesis of the apex and mid anterior segments noted. She was recommended for medicaltreatment, and was started on Imdur 30 mg daily in addition to her chronic anginal medication she is on aspirin, Plavix, Toprol, ranolazine, in addition to ARB and statin. 1. Non-STEMI: Patient presented with chest pain and pressure, no noted EKG changes but troponin didpeak at 80, she was seen by the interventional cardiology team Dr. Snow, and had echo performed which showed EF of 52% with resting wall motion abnormality, stress test showed large lower and LAD ter ritory, but no ischemia was treated medically. She currently remains on aspirin, clopidogrel, Imdur, ranolazine, metoprolol XL, losartan, and statin therapy. I did provide a prescription for sublingual nitroglycerin tablets for patient per request, currently she is markedly improved she tells me. She would prefer not to have any invasive procedures if they were not absolutely necessary. 2. Coronary artery disease: Patient's had previous history of PCI in 2010 and 2012. She is continued on dual antiplatelet therapy secondary to previous in- stent restenosis. She is also on beta-ирина, ARB, isosorbide and ranolazine as well. 3. Chronic diastolic heart failure: Her weight is down 3 pounds, she has just come from a CHF clinic appointment today. She is following 2 g sodium diet, 2000 cc fluid restrictions. Would continue her current regimen. Talk to patient about compression to her lower extremities possibly some instructional paraprofessional weight compression socks or LILIANA hose would be beneficial. She does have easy dependent edema noted. 4. Hypertension: Blood pressure is normal stable would continue her current regimen. Did talk aboutspacing out her medications for improved symptoms. 5. Dyslipidemia: Currently on atorvastatin and Zetia. She had recent lipid panel on 12/27/2020 total cholesterol 198, triglycerides 211, LDL of 109, HDL of 47. 6.T2DM: She is on Tradjenta, Humalog and Lantus insulin, she is on ARB and statin. 7. History of chronic stable angina: Improved with ranolazine, continues to improve further with use of isosorbide. 8. History of cellulitis: Currently improved 9. Covid infection: Apparently this occurred in September 2020. 10. History of obstructive sleep apnea: Currently untreated, to see pulmonology Diabetes She presents for her follow-up diabetic visit. She has type 2 diabetes mellitus. Her disease coursehas been fluctuating. Pertinent negatives for hypoglycemia include no dizziness. Pertinent negatives for diabetes include no chest pain and no weakness. Current diabetic treatment includes insulin injections and oral agent (monotherapy). An ZAHIRA inhibitor/angiotensin II receptor ирина is being taken. CHF Presents for follow-up visit. Associated symptoms include shortness of breath. Pertinent negatives include no abdominal pain, chest pain or palpitations. The symptoms have been stable. Compliance with diet is 0-25%. Compliance with exercise is 0-25%. Compliance with medications is 51-75%. COPD She complains of shortness of breath. There is no cough. This is a chronic problem. The current episode started more than 1 year ago. The problem occurs constantly. The problem has been unchanged. Associated symptoms include dyspnea on exertion. Pertinent negatives include no chest pain or fever. Her symptoms are aggravated by any activity. She reports moderate improvement on treatment. Her past medical history is significant for COPD. * Austyn Brady RP - 10/02/2021 9:11 AM EST Pharmacy Note Vancomycin Consult Kimberly Patel is a 66 y.o. female ordered Vancomycin for Sepsis; consult received from Dr. Knutson to manage therapy. Patient Active Problem List Diagnosis UTI (urinary tract infection) Allergies: Hydromorphone hcl, Metformin, Metformin hcl, Morphine, Ondansetron, Ondansetron hcl, Hydromorphone, and Penicillins Recent Labs 12/05/21 0030 BUN 47* Recent Labs 10/02/21 0030 CREATININE 2.31* Recent Labs 10/02/21 0029 WBC 14.2* Ht Readings from Last 1 Encounters: 10/01/21 5' 4 (1.626 m) Wt Readings from Last 1 Encounters: 10/01/21 300 lb (136.1 kg) Body mass index is 51.49 kg/m . Dosing Weight (Adjusted Body Weight if BMI >= 35) 87 kg Estimated CrCl calculated using actual body weight unless weight > 125% of IBW; Crockoft-Gault equation Estimated creatinine clearance 34 mL/min calculated based on 87kg adj body weight Plan: Will initiate vancomycin 1750 mg IV every 24 hours. Goal trough is 15-20 mcg/ml. Trough level will be scheduled for 10/04/21 0100. Thank you for the consult. Will continue to follow. documented in [facility] Work Phone: [phone] 567-455212-14-2021 Hospital Discharge instructions* Discharge Instr - Activity* Saleem Carrasco RN - 10/11/2021 2:15 PM EST As tolerated * Discharge Instr - Diet* Saleem Carrasco RN - 10/11/2021 2:16 PM EST Good nutrition is important when healing from an illness, injury, or surgery. Follow any nutrition recommendations given to you during your hospital stay. If you were given an oral nutrition supplement while in the hospital, continue to take this supplement at home. You can take it with meals, in-between meals, and/or before bedtime. These supplements can be purchased at most local grocery stores, pharmacies, and [employer]-stores. If you have any questions about your diet or nutrition, call the hospital and ask for the dietitian. Diabetic Diet * Discharge Instr - Lab* Zelda Salazar LPN - 10/08/2021 4:56 PM EST Your physician has ordered skilled home care services for you. Your home care will be provided by: [facility] [phone] [facility] [phone] * Discharge Instr - ANN* Saleem Carrasco RN - 10/11/2021 9:56 AM EST Continuity of Care Form Patient Name: Kimberly Patel : 1955 Admit date: 10/01/2021 Discharge date: Code Status Order: Full Code Advance Directives: Admitting Physician: Darius Knutson MD PCP: Moe Meyer MD Discharging Nurse: Discharging Hospital Unit/Room#: 243/3862 Discharging Unit Phone Number: Emergency Contact: No emergency contact information on file. Past Surgical History: Past Surgical History: Procedure Laterality Date CHOLECYSTECTOMY ENDOSCOPY, COLON, DIAGNOSTIC throat biopsy Immunization History: There is no immunization history on file for this patient. Active Problems: Patient Active Problem List Diagnosis Code UTI (urinary tract infection) N39.0 Isolation/Infection: Isolation No Isolation Patient Infection Status Infection Onset Added Last Indicated Last Indicated By Review Planned Expiration Resolved Resolved By None active Resolved COVID-19 (Rule Out) 10/02/21 10/02/21 10/02/21 COVID-19, Flu A/B, and RSV Combo (Ordered) 10/02/21 Rule-Out Test Resulted Nurse Assessment: Last Vital Signs: BP (!) 153/71 Pulse 78 Temp 97.4 F (36.3 C) (Temporal) Resp 18 Ht 5' 4 (1.626 m) Wt 285 lb 9.6 oz (129.5 kg) SpO2 100% BMI 49.02 kg/m Last documented pain score (0-10 scale): Pain Level: 0 Last Weight: Wt Readings from Last 1 Encounters: 10/11/21 285 lb 9.6 oz (129.5 kg) Mental Status: oriented IV Access: - None Nursing Mobility/ADLs: Walking Dependent Transfer Assisted Bathing Assisted Dressing Assisted Toileting Assisted Feeding Independent Transit Clerk Independent Med Delivery whole Wound Care Documentation and Therapy: Wound 10/02/21 Pedal Anterior; Left blister (Active) Wound Etiology Diabetic 10/10/21 1300 Dressing Status New dressing applied 10/10/21 1300 Wound Cleansed Wound cleanser 10/10/21 1300 Dressing/Treatment Pharmaceutical agent (see MAR); Dry dressing; Roll gauze 10/10/21 1300 Dressing Change Due 10/09/21 10/09/21 1007 Wound Assessment Dry 10/07/21 1136 Drainage Amount None 10/09/21 1007 Odor None 10/09/21 1007 Becky-wound Assessment Blisters 10/07/21 1136 Number of days: 8 Wound 10/02/21 Sacrum (Active) Wound Etiology Pressure Stage 2 10/10/21 1300 Dressing Status Clean; Dry; Intact 10/08/21 1617 Wound Cleansed Soap and water 10/09/21 1007 Dressing/Treatment Open to air 10/10/21 1300 Drainage Amount Large 10/07/21 1136 Odor None 10/07/21 1136 Becky-wound Assessment Warm 10/07/21 1136 Number of days: 8 Elimination: Continence: Bowel: No Bladder: No Urinary Catheter: None Colostomy/Ileostomy/Ileal Conduit: No Date of Last BM: 10/11/21 Intake/Output Summary (Last 24 hours) at 10/11/2021 0955 Last data filed at 10/11/2021 0831 Gross per 24 hour Intake 250 ml Output 1000 ml Net -750 ml I/O last 3 completed shifts: In: 250 [P.O.:240; I.V.:10] Out: - Safety Concerns: At Risk for Falls Impairments/Disabilities: None Nutrition Therapy: Current Nutrition Therapy: - Oral Diet: Carb Control 4 carbs/meal (1800kcals/day) and Low Sodium (3-4gm) Routes of Feeding: Oral Liquids: No Restrictions Daily Fluid Restriction: no Last Modified Barium Swallow with Video (Video Swallowing Test): not done Treatments at the Time of Hospital Discharge: Respiratory Treatments: Oxygen Therapy: is on oxygen at 3 L/min per nasal cannula. Ventilator: - No ventilator support Rehab Therapies: Physical Therapy and Occupational Therapy Weight Bearing Status/Restrictions: No weight bearing restirctions Other Medical Equipment (for information only, NOT a DME order): wheelchair and walker Other Treatments: Patient's personal belongings (please select all that are sent with patient): Shahla RN SIGNATURE: CASE MANAGEMENT/SOCIAL WORK SECTION Inpatient Status Date: 10/02/2021 Readmission Risk Assessment Score: Readmission Risk Risk of Unplanned Readmission: 17 Discharging to Facility/ Agency Name: [facility] Address: [address] [place] [address] Dialysis Facility (if applicable) Name: Address: Dialysis Schedule: Phone: Fax: Short Order Fry Cook/Masticator signature: PHYSICIAN SECTION Prognosis: Good Condition at Discharge: Stable Rehab Potential (if transferring to Rehab): Good Recommended Labs or Other Treatments After Discharge: BMP, CBC in 2 days Physician Certification: I certify the above information and transfer of Kimberly Patel is necessary for the continuing treatment of the diagnosis listed and that she requires Group Home Facility for less 30 days. Update Admission H&P: No change in H&P PHYSICIAN SIGNATURE: * Attachments The following attachments cannot be sent through Care Everywhere. * Diabetes: Carb Counting and Eating Well: General Info (Monegasque) * Diabetes: Counting Carbohydrates (Monegasque) * Sepsis (Monegasque) * Renal Failure: Acute (Monegasque) * CARBOHYDRATES: GENERAL INFO (ALBANIAN) documented in this [facility] Work Phone: 1(415) 100-580012-14-2021 NoteDischarge Summary Kimberly Patel : 1955 ADMIT DATE: 10/01/2021 DISCHARGE DATE: 10/12/2021 PRIMARY CARE PHYSICIAN: Moe Meyer MD VISIT STATUS: Admission CODE STATUS: Prior DISCHARGE DIAGNOSES: E. coli bacteremia due to UTI -dasilva-sensitive - ATB stewardship rec transition to PO Cephalexin 1gm TID through 10/15.? -TTE neg for vegetation ? Left foot cellulitis due to ulceration -wound care input noted ? Severe sepsis -lactic acidosis improved -VSS -continue mgmt of above ? Acute resp insufficiency, chronic resp failure -usually wears 3l NC at home -has elevated d dimer -VQ?neg for PE ? DARRELL, underlying CKD III -renal function improving -Nephrology following -Furosemide resumed; cont to hold ARB -avoid nephrotoxic agents ? Mild hyperkalemia -low K diet; Furosemide resumed ? ?HFpEF -given 1 dose of IV Furosemide, PO Furosemide resumed -TTE reviewed -daily wts requested ? CAD -cont DAPT -cardiac meds -no acute anginal complaints ? DM II w/hyperglycemia, Hgb A1c 10.8% -continue SSI, Lantus -Endocrinology following?-input noted -DC Jardiance/Trulicity? ? HTN -continue to monitor ? Morbid obesity,?Body mass index is 49.22 kg/m?. -pt declined diet education? ? Untreated DIYA Addendum: Stage 2 pressure ulcer of the sacrum, POA HOSPITAL COURSE: Pt is a 66 yo female who lives with her daughter who called EMS because she was weak and lethargic.She was weak , lethargic and out of it at home . She gets like when she has UTI and so her daughter brought her to ED. No cough. No chest pain. Some SOB which is normal for her. No fever or chills. Denies any nausea , vomiting , abdominal pain or change in bowel habit. No leg swelling or focal weakness. ED w/u revealed sepsis due to UTI/infected foot ulcer. She was admitted and treated for above conditions. She has had significant clinical improvement and deemed medically optimized for transfer to SNF. Pt originally wanted to go home, but she requires max assist and her dtr is unable to assist her safely at home. General appearance:??No apparent distress HEENT:??Normal cephalic, atraumatic without obvious deformity. Pupils equal, round, and reactive to light. ?Extra ocular muscles intact. Neck:?Supple, with full range of motion. No jugular venous distention. Respiratory:??Normal respiratory effort. Clear to auscultation, diminished Cardiovascular:??Regular rate and rhythm with normal S1/S2 Abdomen:?obese, non-tender, non-distended with?+?bowel sounds. No rebound or guarding. - martinez? Musculoskeletal:??LE non-pitting edema.? Skin:?dime sized ulceration on dorsal surface of left foot- healing well? Neurologic:??Neurovascularly intact without any focal sensory/motor deficits. Cranial nerves: II-XII intact, grossly non-focal. CONSULTANTS: Endocrinology Nephrology Wound care DISCHARGE MEDICATIONS: Medication List START taking these medications cephALEXin 500 MG capsule Commonly known as: KEFLEX Take 2 capsules by mouth every 8 hours for 20 doses chlorhexidine 4 % external liquid Commonly known as: HIBICLENS Apply topically daily as needed.Cleanse left anterior foot wound daily prior to treatment insulin lispro 100 UNIT/ML injection vial Commonly known as: HUMALOG Inject 10 Units into the skin 3 times daily (with meals) [employer] Pen [place] 31G X 6 MM [facility] Generic drug: Insulin Pen Needle 1 each by Does not apply route 3 times daily mupirocin 2 % ointment Commonly known as: BACTROBAN Apply topically 3 times daily.Apply to left anterior foot wound daily cover with dry dressing. simethicone 80 MG chewable tablet Commonly known as: MYLICON Take 1 tablet by mouth every 6 hours as needed for Flatulence CHANGE how you take these medications furosemide 20 MG tablet Commonly known as: LASIX Take 1 tablet by mouth daily What changed: ? medication strength ? how much to take ? when to take this insulin glargine 100 UNIT/ML injection vial Commonly known as: LANTUS Inject 25 Units into the skin 2 times daily What changed: ? how much to take ? when to take this CONTINUE taking these medications atorvastatin 80 MG tablet Commonly known as: LIPITOR clopidogrel 75 MG tablet Commonly known as: PLAVIX ezetimibe 10 MG tablet Commonly known as: ZETIA isosorbide mononitrate 30 MG extended release tablet Commonly known as: IMDUR metoprolol succinate 25 MG extended release tablet Commonly known as: TOPROL XL omeprazole 20 MG delayed release capsule Commonly known as: PRILOSEC ranolazine 500 MG extended release tablet Commonly known as: RANEXA STOP taking these medications Fiasp FlexTouch 100 UNIT/ML Sopn Generic drug: Insulin Aspart (w/Niacinamide) Jardiance 10 MG tablet Generic drug: empagliflozin losartan 50 MG tablet Commonly known as: COZAAR Trulicity 0.75 MG/0.5ML Sopn Generic drug: Dulaglutide Where to (more content not included)...[facility] Diagnosis Septicemia (HCC)- Primary Unspecified septicemia Altered mental status, unspecified altered mental status type Urinary tract infection without hematuria, site unspecified documented in this encounter [facility] Phone: Evaluation note* Diagnosis Acute congestive heart failure, unspecified heart failure type (HCC) [facility] Diagnosis Type 2 diabetes mellitus with diabetic polyneuropathy, with long-term current use of insulin (HCC) [facility] Diagnosis Type 2 diabetes mellitus with diabetic polyneuropathy, with long-term current use of insulin (HCC)- Primary [facility] Diagnosis Primary hypertension- Primary Unspecified essential hypertension Mixed hyperlipidemia Coronary arteriosclerosis in [place] artery Coronary atherosclerosis of [place] coronary artery Chronic diastolic congestive heart failure (HCC) Chronic diastolic heart failure DIYA (obstructive sleep apnea) Obstructive sleep apnea (adult) (pediatric) [facility] Diagnosis Type 2 diabetes mellitus with diabetic polyneuropathy, with long-term current use of insulin (HCC)- Primary Medication management Encounter for long-term (current) use of other medications [facility]* Diagnosis Type 2 diabetes mellitus with diabetic polyneuropathy, with long-term current use of insulin ([facility]) [facility]* Diagnosis Type 2 diabetes mellitus with diabetic polyneuropathy, with long-term current use of insulin (HCC)- Primary [facility]* Diagnosis Type 2 diabetes mellitus with diabetic polyneuropathy, with long-term current use of insulin (HCC)- Primary Stage 3b chronic kidney disease (HCC) Chronic respiratory failure with hypoxia (HCC) Chronic respiratory failure Restrictive lung disease Other diseases of lung, not elsewhere classified Chronic heart failure with preserved ejection fraction (HFpEF) ([facility]) Morbid obesity with BMI of 45.0-49.9, adult ([facility]) Morbid obesity Recurrent UTI (urinary tract infection) Urinary tract infection, site not specified Primary hypertension Unspecified essential hypertension Coronary artery disease involving [place] heart without angina pectoris, unspecified vessel or lesion type Mixed hyperlipidemia DIYA (obstructive sleep apnea) Obstructive sleep apnea (adult) (pediatric) Requires assistance with activities of daily living (ADL) Weakness of both legs Other musculoskeletal symptoms referable to limbs DDD (degenerative disc disease), lumbar Degeneration of lumbar or lumbosacral intervertebral disc Spondylolisthesis of lumbar region Acquired spondylolisthesis Trigger middle finger of right hand Trigger finger (acquired) History of COVID-19 Slow transit constipation [facility]* Diagnosis Recurrent UTI (urinary tract infection)- Primary Urinary tract infection, site not specified Type 2 diabetes mellitus with diabetic polyneuropathy, with long-term current use of insulin (HCC) Chronic heart failure with preserved ejection fraction (HFpEF) ([facility]) DDD (degenerative disc disease), lumbar Degeneration of lumbar or lumbosacral intervertebral disc Type 2 diabetes mellitus with diabetic polyneuropathy, with long-term current use of insulin ([facility])- Primary [facility]* Diagnosis Type 2 diabetes mellitus with diabetic polyneuropathy, with long-term current use of insulin ([facility])- Primary [facility]* Diagnosis Type 2 diabetes mellitus with diabetic polyneuropathy, with long-term current use of insulin ([facility])- Primary [facility]* Diagnosis Urinary tract infection with hematuria, site unspecified- Primary Acute kidney injury superimposed on CKD (HCC) documented in this encounter [facility] Phone: Evaluation note* Diagnosis Type 2 diabetes mellitus with diabetic polyneuropathy, with long-term current use of insulin (HCC)- Primary [facility] Diagnosis Chronic obstructive pulmonary disease, unspecified COPD type (HCC) Type 2 diabetes mellitus with diabetic polyneuropathy, with long-term current use of insulin (HCC)- Primary [facility] Diagnosis Type 2 diabetes mellitus with diabetic polyneuropathy, with long-term current use of insulin (HCC)- Primary Cellulitis of right lower extremity Cellulitis and abscess of leg, except foot Physical deconditioning Debility, unspecified DIYA (obstructive sleep apnea) Obstructive sleep apnea (adult) (pediatric) Chronic constipation Unspecified constipation Recurrent UTI (urinary tract infection) Urinary tract infection, site not specified Chronic respiratory failure with hypoxia (HCC) Chronic respiratory failure Chronic obstructive pulmonary disease, unspecified COPD type (HCC) Chronic heart failure with preserved ejection fraction (HFpEF) (HCC) Coronary artery disease involving ugash[place] coronary artery of ugash[place] heart without angina pectoris Stage 3b chronic kidney disease (HCC) Elevated TSH Nonspecific abnormal results of thyroid function study [facility] Diagnosis Congestive heart failure, unspecified HF chronicity, unspecified heart failure type (HCC)- Primary [facility] Diagnosis Cellulitis of right lower extremity- Primary Cellulitis and abscess of leg, except foot Rash Rash and other nonspecific skin eruption Chronic diastolic congestive heart failure (HCC) Chronic diastolic heart failure Type 2 diabetes mellitus with diabetic polyneuropathy, with long-term current use of insulin (HCC) Stage 3b chronic kidney disease (HCC) [facility] Diagnosis Type 2 diabetes mellitus with diabetic polyneuropathy, with long-term current use of insulin (HCC) [facility] Diagnosis Type 2 diabetes mellitus with diabetic polyneuropathy, with long-term current use of insulin (HCC) [facility] Diagnosis Chronic heart failure with preserved ejection fraction (HFpEF) (HCC) [facility] Diagnosis Ecthyma- Primary Other specified local infections of skin and subcutaneous tissue Leg swelling Swelling of limb Stage 3b chronic kidney disease (HCC) Primary hypertension Unspecified essential hypertension Type 2 diabetes mellitus with diabetic polyneuropathy, with long-term current use of insulin (HCC) Chronic heart failure with preserved ejection fraction (HFpEF) (HCC) Recurrent UTI (urinary tract infection) Urinary tract infection, site not specified Physical debility Debility, unspecified [facility] Diagnosis DDD (degenerative disc disease), lumbar- Primary Degeneration of lumbar or lumbosacral intervertebral disc Spondylolisthesis of lumbar region Acquired spondylolisthesis [facility] Diagnosis Congestive heart failure, unspecified HF chronicity, unspecified heart failure type ([facility]) [I50.9 (ICD-10-CM)]- Primary [facility] Diagnosis Recurrent UTI (urinary tract infection) Urinary tract infection, site not specified [facility] Diagnosis Ecthyma Other specified local infections of skin and subcutaneous tissue [facility] Diagnosis Recurrent UTI (urinary tract infection)- Primary Urinary tract infection, site not specified Bullous rash Rash and other nonspecific skin eruption Stage 3b chronic kidney disease (HCC) Type 2 diabetes mellitus with diabetic polyneuropathy, with long-term current use of insulin (HCC) Acute on chronic diastolic CHF (congestive heart failure) (HCC) Acute on chronic diastolic heart failure Chronic respiratory failure with hypoxia (HCC) Chronic respiratory failure [facility] Diagnosis Acute on chronic diastolic CHF (congestive heart failure) (HCC)- Primary Acute on chronic diastolic heart failure [facility] Diagnosis Ecthyma Other specified local infections of skin and subcutaneous tissue [facility] Diagnosis Neuropathy- Primary Mononeuritis of unspecified site [facility] Diagnosis Ecthyma Other specified local infections of skin and subcutaneous tissue [facility] Diagnosis Immobility- Primary Other ill-defined conditions [facility] Diagnosis Ecthyma Other specified local infections of skin and subcutaneous tissue [facility] noteNo assessment information availableWAshtabula [facility] Work Phone: Evaluation note* Diagnosis Encounter for support and coordination of transition of care- Primary documented in this encounter [facility] note* Diagnosis Type 2 diabetes mellitus with diabetic polyneuropathy, with long-term current use of insulin ([facility]) documented in this encounter [facility] note* Diagnosis DIYA (obstructive sleep apnea)- Primary Obstructive sleep apnea (adult) (pediatric) documented in this encounter [facility] note* Diagnosis Bilateral leg edema- Primary Edema documented in this encounter [facility] note* Diagnosis Acute on chronic diastolic CHF (congestive heart failure) ([facility]) Acute on chronic diastolic heart failure documented in this encounter [facility] note* Diagnosis Sphenoid sinusitis, unspecified chronicity- Primary Bilateral lower extremity edema Sphenoid sinusitis, unspecified chronicity Fever, unspecified fever cause Delirium Other alteration of consciousness Irritant contact dermatitis due to incontinence of both feces and urine Acute cystitis without hematuria Pressure injury of buttock, stage 2, unspecified laterality ([facility]) UTI (urinary tract infection) Urinary tract infection, site not specified documented in this encounter [facility] note* Diagnosis Encephalopathy acute- Primary Unspecified encephalopathy Transient alteration of awareness Lower urinary tract infectious disease Urinary tract infection, site not specified UTI (urinary tract infection) Urinary tract infection, site not specified Edema, unspecified type Edema of right upper arm UTI (urinary tract infection) Urinary tract infection, site not specified documented in this encounter [facility] for referral (narrative)* Diagnostic Procedure Only (Routine) - Authorized Specialty Diagnoses / Procedures Referred By Lalitha mark Referred To Contact US IMAGING Diagnoses Bilateral leg edema Procedures US DVT LOWER BILAT DUP-SCAN XTR VEINS COMPLETE BILATERAL STUDY Agustin Barahona, TOUR ACTOR [address] [facility] [address] [place] [address] Us Imaging Referral ID Status Reason Start Date Expiration Date Visits Requested Visits Authorized [id number] Authorized Auto-Generat ed Referral 08/02/2022 09/01/2023 [facility] Consultation (Routine) - Pending Review Specialty Diagnoses / Procedures Referred By Contfely t Referred To Contact Wound Care Diagnoses Irritant contact dermatitis due to incontinence of both feces and urine Procedures [place] OFFICE/OUTPATIENT NEW HIGH MDM 60 MINUTES Manisha Tao APRN - CNP [address] [place] [address] [facility] Op Wnd Ostomy [address] [place] [address] Referral ID Status Reason Start Date Expiration Date Visits Requested Visits Authorized [id number] Pending Review Specialty Services Required 02/22/2024 02/21/2025 [address] [facility] for referral (narrative)No reason for referral information availableWAshtabula General Hospital Work Phone: Summary Purpose Family History No Family History Records FoundNo Family History Records FoundNo Family History Records FoundNo Family History Records FoundNo Family History Records FoundNo Family History Records FoundNo Family History Records FoundNo Family History Records Found Advance Directives No Advanced Directives Records FoundLatest Code Status on File Code Status Date Activated Date Inactivated Comments Full Code 01/12/2023 10:26 PM Full Code Order Discussed With: Patient DNR-CCA 11/13/2022 5:00 PM 11/17/2022 6:43 PM DNR Order Discussed With: Patient Full Code 11/10/2022 7:55 AM 11/13/2022 5:00 PM Full Code 07/09/2021 9:14 PM 09/19/2021 1:48 AM DNR-CCA 11/28/2020 4:30 AM 12/02/2020 9:50 PM Latest Code Status on File Code Status Date Activated Date Inactivated Comments Full Code 10/02/2021 6:07 AM Documents on File Type Date 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 Advance Directive(s) 09/19/2021 2:15 AM Advance Directive(s) 07/03/2021 7:19 PM Advance Directive(s) 05/14/2021 8:20 PM Advance Directive(s) 02/06/2021 3:53 PM Advance Directive(s) 11/27/2020 10:38 PM Advance Directive(s) 11/22/2020 5:19 PM Advance Directive(s) 10/13/2020 5:12 PM Advance Directive(s) 10/10/2020 4:33 PM Latest Code Status on File Code Status Date Activated Date Inactivated Comments Full Code 07/09/2021 9:14 PM 09/19/2021 1:48 AM Documents on File Type Date Recorded 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 Advance Directive(s) 09/19/2021 2:15 AM Advance Directive(s) 07/03/2021 7:19 PM Advance Directive(s) 05/14/2021 8:20 PM Advance Directive(s) 02/06/2021 3:53 PM Advance Directive(s) 11/27/2020 10:38 PM Advance Directive(s) 11/22/2020 5:19 PM Advance Directive(s) 10/13/2020 5:12 PM Advance Directive(s) 10/10/2020 4:33 PM Latest Code Status on File Code Status Date Activated Date Inactivated Comments Full Code 07/09/2021 9:14 PM 09/19/2021 1:48 AM DNR-CCA 11/28/2020 4:30 AM 12/02/2020 9:50 PM Documents on File Type Date Recorded 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 Advance Directive(s) 04/10/2022 10:35 AM Advance Directive(s) 09/19/2021 2:15 AM Advance Directive(s) 07/03/2021 7:19 PM Advance Directive(s) 05/14/2021 8:20 PM Advance Directive(s) 02/06/2021 3:53 PM Advance Directive(s) 11/27/2020 10:38 PM Advance Directive(s) 11/22/2020 5:19 PM Advance Directive(s) 10/13/2020 5:12 PM Advance Directive(s) 10/10/2020 4:33 PM Latest Code Status on File Code Status Date Activated Date Inactivated Comments Full Code 04/30/2022 8:11 PM Full Code 10/13/2021 3:08 PM 04/30/2022 4:30 PM Full Code 10/02/2021 6:07 AM 10/11/2021 6:57 PM Latest Code Status on File Code Status Date Activated Date Inactivated Comments Full Code 11/10/2022 7:55 AM Full Code 07/09/2021 9:14 PM 09/19/2021 1:48 AM Latest Code Status on File Code Status Date Activated Date Inactivated Comments DNR-CCA 11/13/2022 5:00 PM 11/17/2022 6:43 PM Latest Code Status on File Code Status Date Activated Date Inactivated Comments DNR-CCA 11/13/2022 5:00 PM 11/17/2022 6:43 PM Full Code 11/10/2022 7:55 AM 11/13/2022 5:00 PM Latest Code Status on File Code Status Date Activated Date Inactivated Comments Full Code 01/12/2023 10:26 PM 01/17/2023 12:15 AM Latest Code Status on File Code Status Date Activated Date Inactivated Comments Full Code 01/12/2023 10:26 PM 01/17/2023 12:15 AM Question Answer Comments Full Code Order Discussed With: Patient Code Status History Code Status Date Activated Date Inactivated Comments DNR-CCA 11/13/2022 5:00 PM 11/17/2022 6:43 PM Question Answer Comments DNR Order Discussed With: Patient Full Code 11/10/2022 7:55 AM 11/13/2022 5:00 PM Question Answer Comments Full Code Order Discussed With: Patient Full Code 07/09/2021 9:14 PM 09/19/2021 1:48 AM DNR-CCA 11/28/2020 4:30 AM 12/02/2020 9:50 PM Question Answer Comments DNR Order Discussed With: Patient Latest Code Status on File Code Status Date Activated Date Inactivated Comments Full Code 02/21/2024 9:40 PM 02/28/2024 9:04 PM Latest Code Status on File Code Status Date Activated Date Inactivated Comments Full Code 03/06/2024 7:05 AM 03/09/2024 12:43 PM Code Status History Code Status Date Activated Date Inactivated Comments Full Code 02/21/2024 9:40 PM 02/28/2024 9:04 PM Reason for Referral Specialty Diagnoses / Procedures Referred By Lalitha mark Referred To Contact Diagnoses Type 2 diabetes mellitus with diabetic polyneuropathy, with long-term current use of insulin (HCC) Chronic respiratory failure with hypoxia (HCC) Coronary artery disease involving [place] heart without angina pectoris, unspecified vessel or lesion type Requires assistance with activities of daily living (ADL) Weakness of both legs Procedures CONSULT TO [facility] Frankie Deng MD [address], [address] [place] [address] [address] [place] [address] Referral ID Status Reason Start Date Expiration Date Visits Requested Visits Authorized [id number] Pending Review PCP Requested Referral 03/22/2022 06/20/2022 1 1 Specialty Diagnoses / Procedures Referred By Contac t Referred To Contact Dermatology Diagnoses Ecthyma Procedures CONSULT TO DERMATOLOGY OFFICE/OUTPATIENT [facility] 60-74 MINUTES Agustin Barahona APRN.TOUR ACTOR [address] [facility] [address] [place] [address] Referral ID Status Reason Start Date Expiration Date Visits Requested Visits Authorized [id number] Pending Review PCP Requested Referral 2 2023 1 1 Specialty Diagnoses / Procedures Referred By Contac t Referred To Contact US IMAGING Diagnoses Leg swelling Procedures US DVT LOWER BILAT DUP-SCAN XTR VEINS COMPLETE BILATERAL STUDY Agustin Barahona APRN.TOUR ACTOR [address] [facility] [address] [place] [address] Us Imaging Referral ID Status Reason Start Date Expiration Date Visits Requested Visits Authorized [id number] Pending Review Auto-Generat ed Referral 2 09/15/2023 1 1 Specialty Diagnoses / Procedures Referred By Contac t Referred To Contact Pain Management Diagnoses DDD (degenerative disc disease), lumbar Spondylolisthesis of lumbar region Procedures CONSULT TO PAIN MGT Agustin Barahona APRN.TOUR ACTOR [address] [facility] [address] [place] [address] Referral ID Status Reason Start Date Expiration Date Visits Requested Visits Authorized [id number] Ref Not Required PCP Requested Referral 2 08/28/2023 1 1 Specialty Diagnoses / Procedures Referred By Contac t Referred To Contact Diagnoses Immobility Procedures PRIMARY CARE SOCIAL WORK CONSULT Agustin Barahona APRN.TOUR ACTOR [address] [facility] [address] [place] [address] Referral ID Status Reason Start Date Expiration Date Visits Requested Visits Authorized [id number] Ref Not Required PCP Requested Referral 11/09/2022 02/07/2023 1 1 Specialty Diagnoses / Procedures Referred By Lalitha t Referred To Contact Diagnoses DIYA (obstructive sleep apnea) Procedures CONSULT TO SLEEP MEDICINE - ADULT Agustin Barahona APRN.TOUR ACTOR [address] [facility] [address] [place] [address] Referral ID Status Reason Start Date Expiration Date Visits Requested Visits Authorized [id number] Ref Not Required PCP Requested Referral 06/26/2022 06/26/2023 1 1 Health Concerns Infection Onset Date Last Indicated Resolved Time COVID-19 Rule-Out 11/09/2022 11/09/2022 11/10/2022 1:32 AM EST Infection Onset Date Last Indicated Resolved Time COVID-19 Rule-Out 07/19/2022 07/19/2022 07/19/2022 2:58 PM EDT COVID-19 Rule-Out 08/21/2022 08/21/2022 08/21/2022 11:41 PM EDT COVID-19 Rule-Out 10/15/2022 10/15/2022 10/16/2022 12:23 AM EST COVID-19 Rule-Out 10/28/2022 10/28/2022 10/28/2022 4:10 PM EST COVID-19 Rule-Out 11/09/2022 11/09/2022 11/10/2022 1:32 AM EST COVID-19 Rule-Out 11/17/2022 11/17/2022 11/17/2022 1:43 PM EST COVID-19 Rule-Out 01/02/2023 01/02/2023 01/02/2023 5:46 PM EST Infection Onset Date Last Indicated Resolved Time COVID-19 Rule-Out 08/21/2022 08/21/2022 08/21/2022 11:41 PM EDT COVID-19 Rule-Out 10/15/2022 10/15/2022 10/16/2022 12:23 AM EST COVID-19 Rule-Out 10/28/2022 10/28/2022 10/28/2022 4:10 PM EST COVID-19 Rule-Out 11/09/2022 11/09/2022 11/10/2022 1:32 AM EST COVID-19 Rule-Out 11/17/2022 11/17/2022 11/17/2022 1:43 PM EST COVID-19 Rule-Out 01/02/2023 01/02/2023 01/02/2023 5:46 PM EST Infection Onset Date Last Indicated Resolved Time COVID-19 Rule-Out 10/15/2022 10/15/2022 10/16/2022 12:23 AM EST COVID-19 Rule-Out 10/28/2022 10/28/2022 10/28/2022 4:10 PM EST COVID-19 Rule-Out 11/09/2022 11/09/2022 11/10/2022 1:32 AM EST COVID-19 Rule-Out 11/17/2022 11/17/2022 11/17/2022 1:43 PM EST COVID-19 Rule-Out 01/02/2023 01/02/2023 01/02/2023 5:46 PM EST Chief Complaint and Reason for Visit Chief Complaint SKILLED NURSING LAB WOR K Chief Complaint LABWORK SKILLED NURSING LAB WORK Chief Complaint LABWORK SKILLED NURSING LAB WORK SKILLED NURSING LABWORK Chief Complaint LABWORK SKILLED NURSING LAB WORK SKILLED NURSING LABWORK SKILLED NURSING LABWORK Chief Complaint LABWORK SKILLED NURSING LAB WORK SKILLED NURSING LABWORK SKILLED NURSING LABWORK SKILLED NURSING LAB WORK SKILLED NURSING LABWORK Chief Complaint LABWORK SKILLED NURSING LAB WORK SKILLED NURSING LABWORK SKILLED NURSING LABWORK SKILLED NURSING LAB WORK SKILLED NURSING LABWORK SKILLED NURSING LABWORK Chief Complaint LABWORK SKILLED NURSING LAB WORK SKILLED NURSING LABWORK SKILLED NURSING LABWORK SKILLED NURSING LAB WORK SKILLED NURSING LABWORK LABWORK SKILLED NURSING LABWORK Chief Complaint LABWORK SKILLED NURSING LAB WORK SKILLED NURSING LABWORK SKILLED NURSING LABWORK SKILLED NURSING LAB WORK SKILLED NURSING LABWORK LABWORK LABWORK SKILLED NURSING LABWORK Chief Complaint LABWORK SKILLED NURSING LAB WORK SKILLED NURSING LABWORK SKILLED NURSING LABWORK SKILLED NURSING LAB WORK SKILLED NURSING LABWORK LABWORK LABWORK SKILLED NURSING LABWORK LABWORK Chief Complaint LABWORK SKILLED NURSING LAB WORK SKILLED NURSING LABWORK SKILLED NURSING LABWORK SKILLED NURSING LAB WORK SKILLED NURSING LABWORK LABWORK LABWORK SKILLED NURSING LABWORK LABWORK LABWORK Chief Complaint LABWORK SKILLED NURSING LAB WORK SKILLED NURSING LABWORK SKILLED NURSING LABWORK SKILLED NURSING LAB WORK SKILLED NURSING LABWORK LABWORK LABWORK SKILLED NURSING LABWORK LABWORK LABWORK SKILLED NURSING LAB WORK SKILLED NURSING LABWORK Chief Complaint LABWORK SKILLED NURSING LAB WORK SKILLED NURSING LABWORK SKILLED NURSING LABWORK SKILLED NURSING LAB WORK SKILLED NURSING LABWORK LABWORK LABWORK SKILLED NURSING LABWORK LABWORK LABWORK SKILLED NURSING LAB WORK SKILLED NURSING LABWORK LABWORK Chief Complaint LABWORK SKILLED NURSING LAB WORK SKILLED NURSING LABWORK SKILLED NURSING LABWORK SKILLED NURSING LAB WORK SKILLED NURSING LABWORK LABWORK LABWORK SKILLED NURSING LABWORK LABWORK LABWORK SKILLED NURSING LAB WORK SKILLED NURSING LABWORK LABWORK SKILLED NURSING LABWORK Chief Complaint SKILLED NURSING LABWORK SKILLED NURSING LABWORK SKILLED NURSING LAB WORK SKILLED NURSING LABWORK LABWORK LABWORK SKILLED NURSING LABWORK LABWORK LABWORK SKILLED NURSING LAB WORK SKILLED NURSING LABWORK LABWORK SKILLED NURSING LABWORK SKILLED NURSING LAB WORK Chief Complaint SKILLED NURSING LABWORK SKILLED NURSING LAB WORK SKILLED NURSING LABWORK LABWORK LABWORK SKILLED NURSING LABWORK LABWORK LABWORK SKILLED NURSING LAB WORK SKILLED NURSING LABWORK LABWORK SKILLED NURSING LABWORK SKILLED NURSING LABWORK SKILLED NURSING LAB WORK Chief Complaint SKILLED NURSING LAB WOR K SKILLED NURSING LABWORK LABWORK LABWORK SKILLED NURSING LABWORK LABWORK LABWORK SKILLED NURSING LAB WORK SKILLED NURSING LABWORK LABWORK SKILLED NURSING LABWORK SKILLED NURSING LABWORK SKILLED NURSING LAB WORK LABWORK Chief Complaint SKILLED NURSING LAB WOR K SKILLED NURSING LABWORK LABWORK LABWORK SKILLED NURSING LABWORK LABWORK LABWORK SKILLED NURSING LAB WORK SKILLED NURSING LABWORK LABWORK SKILLED NURSING LABWORK SKILLED NURSING LABWORK SKILLED NURSING LAB WORK LABWORK LABWORK Chief Complaint LABWORK SKILLED NURSING LABWORK SKILLED NURSING LABWORK SKILLED NURSING LAB WORK LABWORK LABWORK LABWORK Chief Complaint SKILLED NURSING LAB WOR K LABWORK LABWORK LABWORK LABWORK SKILLED NURSING LAB WORK Chief Complaint LABWORK LABWORK SKILLED NURSING LAB WORK LABWORK SKILLED NURSING LAB WORK Chief Complaint SKILLED NURSING LAB WOR K LABWORK Chief Complaint SKILLED NURSING LAB WOR K LABWORK LABWORK Chief Complaint Admit Date SKILLED NURSING LAB WORK September 17 4:00am SKILLED NURSING LAB WORK October 02, 2024 5:00am SKILLED NURSING LAB WORK October 09 5:00am LABWORK December 19, 2024 5:00am Chief Complaint Admit Date SKILLED NURSING LAB WORK October 09 5:00am LABWORK December 19, 2024 5:00am SKILLED NURSING LAB WORK January 19, 2025 5 :00am Chief Complaint Admit Date LABWORK December 19, 2024 5:00am SKILLED NURSING LAB WORK January 19, 2025 5 :00am SKILLED NURSING LAB WORK February 12, 2025 5 :00am Additional Source Comments INFORMATION SOURCE (unrecogn ized section and content) DATE CREATED AUTHOR 03/14/2020 [facility] ([place]) DATE CREATED AUTHOR AUTHOR'S ORGANIZ ATION 05/19/2020 [facility] [place] DATE CREATED AUTHOR AUTHOR'S ORGANIZ ATION 08/19/2021 [facility] DATE CREATED AUTHOR AUTHOR'S ORGANIZ ATION 06/12/2022 [facility] DATE CREATED AUTHOR AUTHOR'S ORGANIZ ATION 12/01/2022 [facility] DATE CREATED AUTHOR AUTHOR'S ORGANIZ ATION 08/12/2023 [facility] DATE CREATED AUTHOR AUTHOR'S ORGANIZ ATION 03/30/2024 [facility] DATE CREATED AUTHOR AUTHOR'S ORGANIZ ATION 07/31/2025 [facility] Reason for Visit (unrecogniz ed section and content) Reason Comments Altered Mental Status Reason Comments Remote HF Follow Up Reason Comments Patient Update Reason Onset Date Comments Refill Request 01/30/2022 Reason Comments Allied Health Visit DM Reason Comments Refill Request Reason Comments Patient Update D/C Plavic out of pi ll pack Reason Comments Cardiology Follow Up CAD Reason Comments Patient Update Medication Follow-up Reason Comments Oxygen Reason Comments Home Care Confirmation Call Reason Comments [facility] Reason Onset Date Comments Refill Request Refill Request 03/28/2022 Reason Comments DME Order oxygen Reason Comments POST ED Reason Comments UTI Reason Comments Care Coordination Reason Comments Fatigue Reason Comments Constipation Edema Reason Comments New Patient Evaluation Reason Comments [facility]-HFC;order request Reason Comments Results Reason Comments Consult HOME HEALTH Reason Comments Consult SLEEP MEDICINE Reason Comments Patient Update Verify PCP cancelled [facility] Reason Comments CHF Specialty Diagnoses / Procedures Referred By Contac t Referred To Contact Family Practice / FAMILY MEDICINE Diagnoses 3 week f/u Procedures PHYS/QHP TELEPHONE EVALUATION 5-10 MIN VIDEO PRIMARY EST Self, Agustin Crane, HAM DOCTOR.TOUR ACTOR [address] [facility] [address] [place] [address] Referral ID Status Reason Start Date Expiration Date Visits Re quested Visits Authorized [id number] Closed 10/29/2021 10/28/2022 1 1 Reason Comments ak HFC swelling Reason Comments Insurance Account Representative - Other Discharged from pharmD services Reason Comments Patient Question Medication Reason Comments Orders Appointment update Reason Comments Appointment Reason Comments Results Labs done at ED Reason Comments Rash Reason Onset Date Comments Rectangular Tank Cooper- Other 08/17/2022 PCC Chart review Reason Onset Date Comments Rectangular Tank Cooper- Other 08/17/2022 Primary Care Coordination Intake Attempt Reason Comments Patient Update Leg swelling Reason Onset Date Comments Patient Update 08/26/2022 Reason Onset Date Comments Transition Of Care 08/28/2022 [facility] 08/22- TCM Reason Comments Consult PAIN MANAGEMENT Reason Comments Med Change Request Reason Onset Date Comments Transition Of Care 09/08/2022 Return Patien t call Reason Onset Date Comments Refill Request 09/25/2022 Reason Comments Rx Refills Reason Onset Date Comments Transition Of Care 09/25/2022 Patient call, TCM follow up Reason Onset Date Comments Refill Request Refill Request 10/12/2022 Reason Onset Date Comments Medication Problem 10/29/2022 Called by SNF . Gianluca printed script was not sent Reason Comments Orders HFC order contact/SN F letter Reason Comments Reason Onset Date Comments Transition Of Care 11/09/2022 [place] 10/28-11/08/22 TCM Reason Onset Date Comments Transition Of Care 11/20/2022 Discharge to SNF Reason Comments Ambulatory Social Work Transition of car e Reason Comments Orders HFC order contact/2n d letter Reason Comments Patient Update Reason Comments Patient Question Orders US DVT LOWER BILATER AL Reason Comments Medication Problem Recent hospital disc harge Reason Onset Date Comments Transition Of Care 01/15/2023 Inpatient TCM visit Reason Comments Orders HFC deferral Reason Comments Orders ak HFC appt contact Reason Onset Date Comments Transition Of Care 01/29/2023 [facility] 01/28/23 Reason Onset Date Comments Transition Of Care 02/06/2023 SNF Update Reason Comments Orders [facility] HFC - order conta ct/deferral Reason Comments Consult Reason Comments Altered Mental Status Fever Specialty Diagnoses / Procedures Referred By Contac t Referred To Contact Diagnoses Delirium Bilateral lower extremity edema Fever, unspecified fever cause Sphenoid sinusitis, unspecified chronicity Procedures . Shmuel Trevino MD [address] [place] [address] [facility] [address] Referral ID Status Reason Start Date Expiration Date Visits Re quested Visits Authorized [id number] 1 1 Reason Comments Altered Mental Status PER FACILITY, PT S TARTED WITH CONFUSION AND HALLUCINATIONS AT [place] FOR UTI PRESENT Specialty Diagnoses / Procedures Referred By Contac t Referred To Contact Diagnoses Transient alteration of awareness Lower urinary tract infectious disease UTI (urinary tract infection) Encephalopathy acute Edema, unspecified type Edema of right upper arm Procedures .. Eboni Fletcher MD [address] [place] [address] [facility] [address] [address] Referral ID Status Reason Start Date Expiration Date Visits Re quested Visits Authorized [id number] 1 1 Ordered Prescriptions (unrec ognized section and content) Prescription Sig Dispensed Refills Start Date End Da te furosemide (LASIX) 20 MG tablet Take 1 tablet by mouth daily 60 tablet 3 10/12/2021 chlorhexidine (HIBICLENS) 4 % external liquid Apply topically daily as needed.Cleanse left anterior foot wound daily prior to treatment 0 10/12/2021 10/25/2021 Insulin Pen Needle (MEIJER PEN NEEDLES) 31G X 6 MM MISC 1 each by Does not apply route 3 times daily 100 each 3 10/08/2021 insulin glargine (LANTUS) 100 UNIT/ML injection vial Inject 25 Units into the skin 2 times daily 10 mL 3 10/08/2021 insulin lispro (HUMALOG) 100 UNIT/ML injection vial Inject 10 Units into the skin 3 times daily (with meals) 10 mL 3 10/08/2021 simethicone (MYLICON) 80 MG chewable tablet Take 1 tablet by mouth every 6 hours as needed for Flatulence 180 tablet 0 10/08/2021 mupirocin (BACTROBAN) 2 % ointment Apply topically 3 times daily.Apply to left anterior foot wound daily cover with dry dressing. 3 g 0 10/09/2021 10/15/2021 cephALEXin (KEFLEX) 500 MG capsule Take 2 capsules by mouth every 8 hours for 20 doses 40 capsule 0 10/08/2021 10/15/2021 furosemide (LASIX) 40 MG tablet Take 1 tablet by mouth daily 30 tablet 0 10/11/2021 10/11/2021 Prescription Sig Dispensed Refills Start Date End Da te insulin lispro (HUMALOG) 100 UNIT/ML injection vial Inject 12 Units into the skin 3 times daily (with meals) 10 mL 3 05/07/2022 insulin glargine (LANTUS) 100 UNIT/ML injection vial Inject 28 Units into the skin 2 times daily 10 mL 3 05/06/2022 Scheduled Active and Recently Administ ered Medications (unrecognized section and content) Medication Order 10/09/2021 10/10/2021 10/11/2021 atorvastatin (LIPITOR) tablet 80 mg 80 mg, Oral, NIGHTLY, First dose on Sun10/02/21 at 2100 0014 (Given - Provider: Moe Castrejon RN)2221 (Given - Provider: Natali Mcclellan RN) 2146 (Given - Provider: Natali Mcclellan RN) 2100 (Due) cephALEXin (KEFLEX) capsule 1,000 mg 1,000 mg, Oral, EVERY 8 HOURS SCHEDULED (3 times per day), First dose on 10/08/21 at 1400, For 7 days 0014 (Given - Provider: Moe Castrejon RN)0604 (Given - Provider: Moe Castrejon RN)1316 (Given - Provider: Carmelita Mccord RN)2221 (Given - Provider: Natali Mcclellan RN) 0644 (Given - Provider: Natali Mcclellan, ROYCE)1419 (Given - Provider: Saleem Carrasco RN)2146 (Given - Provider: Natali Mcclellan RN) 0527 (Given - Provider: Natali Mcclellan RN)1401 (Given - Provider: Saleem Carrasco RN)2200 (Due) chlorhexidine (HIBICLENS) 4 % liquid Topical, DAILY, First dose (after last modification) on Sun10/11/21 at 0900, Cleanse left anterior foot wound daily prior to treatment 0836 (Given - Provider: Saleem Carrasco RN) clopidogrel (PLAVIX) tablet 75 mg 75 mg, Oral, DAILY, First dose on 10/02/21 at 1545 1007 (Given - Provider: Carmelita Mccord RN) 0843 (Given - Provider: Saleem Carrasco RN) 0830 (Given - Provider: Saleem Carrasco RN) ezetimibe (ZETIA) tablet 10 mg 10 mg, Oral, DAILY, First dose on 10/02/21 at 1545 1007 (Given - Provider: Carmelita Mccord RN) 0843 (Given - Provider: Saleem Carrasco RN) 0830 (Given - Provider: Saleem Carrasco RN) furosemide (LASIX) tablet 20 mg 20 mg, Oral, DAILY, First dose on 10/10/21 at 1515 1653 (Given - Provider: Saleem Carrasco RN) 0830 (Given - Provider: Saleem Carrasco RN) heparin (porcine) injection 5,000 Units 5,000 Units, SubCUTAneous, EVERY 8 HOURS SCHEDULED (3 times per day), First dose on 10/02/21 at 0607 0014 (Given - Provider: Moe Castrejon RN)0604 (Given - Provider: Moe Castrejon RN)1316 (Given - Provider: Carmelita Mccord, ROYCE)2221 (Given - Provider: Natali Mcclellan RN) 0643 (Given - Provider: Natali Mcclellan RN)1419 (Given - Provider: Saleem Carrasco RN)2145 (Given - Provider: Natali Mcclellan RN) 0527 (Given - Provider: Natali Mcclellan RN)1401 (Given - Provider: Saleem Carrasco RN)2200 (Due) insulin glargine (LANTUS) injection vial 25 Units 25 Units, SubCUTAneous, 2 TIMES DAILY, First dose (after last modification) on 10/08/21 at 2100 0014 (Given - Provider: Moe Castrejon RN)1134 (Given - Provider: Carmelita Mccord RN - Comment: medication not availible)2221 (Given - Provider: Natali Mcclellan RN) 0851 (Given - Provider: Saleem Carrasco RN)2152 (Given - Provider: Natali Mcclellan RN) 0837 (Given - Provider: Saleem Carrasco RN)2100 (Due) insulin lispro (HUMALOG) injection vial 0-12 Units 0-12 Units, SubCUTAneous, 3 TIMES DAILY WITH MEALS, First dose on Sun10/07/21 at 0800, Medium Dose Corrective Algorithm Glucose: Dose: <150 No Insulin 151-200 2 Units 201-250 4 Units 251-300 6 Units 301-350 8 Units 351-400 10 Units Above 400 12 Units AND CALLPHYSICIAN 1006 (Given - Provider: Carmelita Mccord RN)1133 (Not Given - Provider: Carmelita Mccord RN - Reason: Order parameters not met)1733 (Given - Provider: Carmelita Mccord RN) 0800 (Not Given - Provider: Saleem Carrasco RN - Reason: Patient/family refused)1418 (Not Given - Provider: Saleem Carrasco RN - Reason: Patient/family refused)1654 (Given - Provider: Saleem Carrasco RN) 0837 (Given - Provider: Saleem Carrasco, RN)1401 (Given - Provider: Saleem Carrasco RN)1700 (Due) insulin lispro (HUMALOG) injection vial 10 Units 10 Units, SubCUTAneous, 3 TIMES DAILY WITH MEALS, First dose (after last modification) on Sun10/08/21 at 1200 1006 (Not Given - Provider: Carmelita Mccord RN - Reason: Patient/family refused - Comment: did not eat breakfast)1136 (Not Given - Provider: Carmelita Mccord RN - Reason: Patient/family refused)1733 (Given - Provider: Carmelita Mccord RN) 0800 (Not Given - Provider: Saleem Carrasco RN - Reason: Patient/family refused)1418 (Not Given - Provider: Saleem Carrasco RN - Reason: Patient/family refused)1653 (Given - Provider: Saleem Carrasco RN) 0838 (Given - Provider: Saleem Carrasco, RN)1401 (Given - Provider: Saleem Carrasco, RN)1700 (Due) isosorbide mononitrate (IMDUR) extended release tablet 30 mg 30 mg, Oral, DAILY, First dose on 10/02/21 at 1545, Do not crush or chew. 1007 (Given - Provider: Carmelita Mccord RN) 0844 (Given - Provider: Saleem Carrasco RN) 0830 (Given - Provider: Saleem Carrasco RN) losartan (COZAAR) tablet 50 mg 50 mg, Oral, DAILY, First dose on 10/02/21 at 1545 0900 (Automatically Held) 0900 (Automatically Held) 0900 (Automatically Held) metoprolol succinate (TOPROL XL) extended release tablet 25 mg 25 mg, Oral, DAILY, First dose on 10/02/21 at 1545, Do not crush or chew. 1007 (Given - Provider: Carmelita Mccord RN) 0844 (Given - Provider: Saleem Carrasco RN) 0830 (Given - Provider: Saleem Carrasco RN) mupirocin (BACTROBAN) 2 % ointment Topical, DAILY, First dose on Sun10/04/21 at 1400, Apply to left anterior foot wound daily cover with dry dressing. 1007 (Given - Provider: Carmelita Mccord RN) 0851 (Given - Provider: Saleem Carrasco RN) 0837 (Given - Provider: Saleem Carrasco RN) pantoprazole (PROTONIX) tablet 40 mg 40 mg, Oral, DAILY BEFORE BREAKFAST, First dose on 10/02/21 at 0700, Do not crush or break. 0604 (Given - Provider: Moe Castrejon RN) 0643 (Given - Provider: Natali Mcclellan RN) 0527 (Given - Provider: Natali Mcclellan RN) pregabalin (LYRICA) capsule 75 mg 75 mg, Oral, 2 TIMES DAILY, First dose on 10/02/21 at 2100, This med is in Pyxis 0014 (Given - Provider: Moe Castrejon RN)1007 (Given - Provider: Carmelita Mccord RN)2147 (Given - Provider: Natali Mcclellan, ROYCE) 0851 (Given - Provider: Saleem Carrasco RN)2145 (Given - Provider: Natali Mcclellan, ROYCE) 0836 (Given - Provider: Saleem Carrasco RN)2100 (Due) ranolazine (RANEXA) extended release tablet 1,000 mg 1,000 mg, Oral, 2 TIMES DAILY, First dose on 10/02/21 at 2100, Do not crush or break. 0013 (Given - Provider: Moe Castrejon RN)1007 (Given - Provider: Carmelita Mccord RN)2221 (Given - Provider: Natali Mcclellan RN) 0843 (Given - Provider: Saleem Carrasco RN)2146 (Given - Provider: Natali Mcclellan RN) 0830 (Given - Provider: Saleem Carrasco RN)2100 (Due) sodium chloride flush 0.9 % injection 5-40 mL 5-40 mL, IntraVENous, EVERY 12 HOURS SCHEDULED (2 times per day), First dose on Sun10/02/21 at 0900, For Line Patency: Peripheral IV = 5 mL; Midline or Central Line = 10 mL/lumen. If following IV push medication, administer flush at same rate as the IV push. Flush volume is determined by type of infusion therapy being given. For non-viscous solutions use: Peripheral IV = 5 mL Midline or Central Line = 10 mL/lumen For viscous solutions (i.e. blood components, parenteral nutrition, contrast media, or after obtaining blood sample) use: Peripheral IV = 10 mL Midline or Central Line = 20 mL/lumen 0021 (Given - Provider: Moe Castrejon RN)1008 (Given - Provider: Carmelita Mccord RN)2100 (Due) 0845 (Given - Provider: Saleem Carrasco RN)2100 (Due) 0831 (Given - Provider: Saleem Carrasco RN)2100 (Due) valACYclovir (VALTREX) tablet 2,000 mg (COMPLETED) 2,000 mg, Oral, 2 TIMES DAILY, First dose on Sun10/10/21 at 2100, For 2 doses 2146 (Given - Provider: Natali Mcclellan RN) 0829 (Given - Provider: Saleem Carrasco RN) PRN Medication Order 10/09/2021 10/10/2021 10/11/2021 0.9 % sodium chloride infusion 25 mL, IntraVENous, at 100 mL/hr, PRN, If patient receiving piggyback infusions without ordered maintenance IV fluids or with frequent/long duration piggyback infusions, Starting on Sun10/02/21 at 0606, Administer at the same rate as the piggyback being infused. acetaminophen (TYLENOL) suppository 650 mg(Linked Group 1) 650 mg, Rectal, EVERY 6 HOURS PRN, Pain Mild (1-3), Fever, For temp greater than 100.4 F (38 C), Starting on 10/02/21 at 0606, Administer if oral route cannot be used. acetaminophen (TYLENOL) tablet 650 mg(Linked Group 1) 650 mg, Oral, EVERY 6 HOURS PRN, Pain Mild (1-3), Fever, For temp greater than 100.4 F (38 C), Starting on Sun10/02/21 at 06, Maximum dose of acetaminophen is 4000 mg from all sources in 24 hours. dextrose 5 % solution 100 mL/hr, IntraVENous, PRN, Low blood sugar, Starting on Sun10/02/21 at 06, Start infusion following administration of dextrose 50% or glucagon. dextrose 50 % IV solution 12.5 g, IntraVENous, PRN, Low blood sugar, Blood glucose less than 70 mg/dL and patient NOT ALERT or NPO., Starting on Sun10/02/21 at 605, If patient does not respond within 5 minutes, repeat dose x1. Start D5W at 100 mL/hour until ordering provider can be reached. Repeat blood glucose in 15 minutes. If blood glucose is less than 70 mg/dL, repeat treatment and recheck blood glucose in 15 minutes x2. If using Glucostabilizer, dose as instructed per system. glucagon (rDNA) injection 1 mg 1 mg, IntraMUSCular, PRN, Low blood sugar, Blood glucose less than 70 mg/dL and patient NOT ALERT or NPO and does not have IV access., Starting on Sun10/02/21 at 06, After administration, attempt intravenous access and start D5W at 100 mL/hr. Repeat blood glucose in 15 minutes x2 and notify provider. glucose (GLUTOSE) 40 % oral gel 15 g 15 g, Oral, PRN, Low blood sugar, Starting on Sun10/02/21 at 06, If blood glucose less than 50 mg/dL and patient ALERT and TOLERATING PO, give 2 tubes glucose gel. If blood glucose less than 70 mg/dL and patient ALERT and TOLERATING PO, give 1 tube glucose gel. Repeat blood glucose in 15 minutes. If blood glucose is less than 70 mg/dL, repeat treatment and recheck blood glucose in 15 minutes x2 and notify provider. ipratropium-albuterol (DUONEB) nebulizer solution 1 ampule 1 ampule, Inhalation, EVERY 4 HOURS PRN, Shortness of Breath, Starting on Sun10/02/21 at 0606 sennosides-docusate sodium (SENOKOT-S) 8.6-50 MG tablet 2 tablet 2 tablet, Oral, DAILY PRN, Constipation, Starting on 10/04/21 at 1024 simethicone (MYLICON) chewable tablet 80 mg 80 mg, Oral, EVERY 6 HOURS PRN, Cramping, Starting on [place] 10/06/21 at 0558 sodium chloride flush 0.9 % injection 5-40 mL 5-40 mL, IntraVENous, PRN, Line Care, After every IV line use, Starting on 10/02/21 at 0606, For Line Patency: Peripheral IV = 5 mL; Midline or Central Line = 10 mL/lumen. If following IV push medication, administer flush at same rate as the IV push. Flush volume is determined by type of infusion therapy being given. For non-viscous solutions use: Peripheral IV = 5 mL Midline or Central Line = 10 mL/lumen For viscous solutions (i.e. blood components, parenteral nutrition, contrast media, or after obtaining blood sample) use: Peripheral IV = 10 mL Midline or Central Line = 20 mL/lumen Linked Groups Order Group 1: acetaminophen (TYLENOL) tablet 650 mgJump to med 650 mg, Oral, EVERY 6 HOURS PRN, Pain Mild (1-3), Fever, For temp greater than 100.4 F (38 C), Starting on 10/02/21 at 0606
Maximum dose of acetaminophen is 4000 mg from all sources in 24 hours.
Or acetaminophen (TYLENOL) suppository 650 mgJump to med 650 mg, Rectal, EVERY 6 HOURS PRN, Pain Mild (1-3), Fever, For temp greater than 100.4 F (38 C), Starting on 10/02/21 at 0606
Administer if oral route cannot be used.
Scheduled Medication Order 05/05/2022 05/06/2022 05/07/2022 atorvastatin (LIPITOR) tablet 80 mg 80 mg, Oral, NIGHTLY, First dose on 04/30/22 at 2100, Until Discontinued 2015 (Given - Provider: Ann Moran RN) 2047 (Given - Provider: Brandi Dinh RN) 2099 (Due) cefTRIAXone sodium 1,000 mg in sodium chloride 0.9 % 100 mL IVPB (add-vantage) (COMPLETED) 1,000 mg, IntraVENous, EVERY 24 HOURS, 3 doses, First dose on Sun05/03/22 at 1000, Last dose on Sun05/05/22 at 1000, Antimicrobial Indications: Urinary Tract Infection, UTI duration of therapy: 3 days 1028 (New Bag - Provider: Janelle Michel RN)1252 (Stopped - Provider: Janelle Michel RN) clopidogrel (PLAVIX) tablet 75 mg 75 mg, Oral, DAILY, First dose on Sun05/01/22 at 0900, Until Discontinued 1014 (Given - Provider: Janelle Michel RN) 0758 (Given - Provider: Susan Garcia RN) 0812 (Given - Provider: Susan Garcia RN) ezetimibe (ZETIA) tablet 10 mg 10 mg, Oral, DAILY, First dose on Sun05/01/22 at 0900, Until Discontinued 1028 (Given - Provider: Janelle Michel RN) 0758 (Given - Provider: Susan Garcia RN) 0812 (Given - Provider: Susan Garcia RN) furosemide (LASIX) tablet 20 mg 20 mg, Oral, DAILY, First dose on Sun05/01/22 at 0900, Until Discontinued 1014 (Given - Provider: Janelle Michel RN) 0758 (Given - Provider: Susan Garcia RN) 0812 (Given - Provider: Susan Garcia RN) heparin (porcine) injection 5,000 Units 5,000 Units, SubCUTAneous, EVERY 8 HOURS SCHEDULED (3 times per day), First dose on Sun04/30/22 at 2200, Until Discontinued 0543 (Given - Provider: Raeann Cason RN)1617 (Not Given - Provider: Janelle Michel RN - Reason: Patient/family refused - Comment: did not want to be disturbed while resting)2030 (Not Given - Provider: Ann Moran RN - Reason: Patient/family refused) 0758 (Given - Provider: Susan Garcia RN)1442 (Given - Provider: Susan Garcia RN)2048 (Given - Provider: Brandi Dinh RN) 0628 (Given - Provider: Brandi Smetak, RN)1400 (Due)2200 (Due) insulin glargine (LANTUS) injection vial 28 Units 28 Units, SubCUTAneous, 2 TIMES DAILY, First dose on Sun04/30/22 at 2100, Until Discontinued 1013 (Given - Provider: Janelle Michel RN)2016 (Given - Provider: Ann Moran RN) 0816 (Given - Provider: Susan Garcia, ROYCE)2048 (Given - Provider: Brandi Dinh RN) 0815 (Given - Provider: Susan Garcia RN)2099 (Due) insulin lispro (HUMALOG) injection vial 0-12 Units 0-12 Units, SubCUTAneous, 3 TIMES DAILY WITH MEALS, First dose on Sun05/01/22 at 0800, Until Discontinued, Medium Dose Corrective Algorithm Glucose: Dose: If <139 No Insulin 140-199 2 Units 200-249 4 Units 250-299 6 Units 300-349 8 Units 350-400 10 Units Above 400 12 Units 1018 (Given - Provider: Janelle Michel RN)1617 (Not Given - Provider: Janelle Michel RN - Reason: Patient/family refused)1735 (Given - Provider: Janelle Michel RN) 0813 (Given - Provider: Susan Garcia RN)1149 (Given - Provider: Susan Garcia RN)1621 (Given - Provider: Susan Garcia RN) 0830 (Given - Provider: Susan Garcia RN)1200 (Due)1700 (Due) insulin lispro (HUMALOG) injection vial 0-6 Units 0-6 Units, SubCUTAneous, NIGHTLY, First dose on Sun04/30/22 at 2100, Until Discontinued, If continuous tube feedings/TPN/NPO, give correction dose based on result, no reduction in dose. If eating or bolus tube feeding: Medium Dose Corrective Algorithm Glucose: Dose: If <139 No Insulin 140-199 1 Unit 200-249 2 Units 250-299 3 Units 300-349 4 Units 350-400 5 Units Above 400 6 Units 2015 (Given - Provider: Ann Moran RN) 2048 (Not Given - Provider: Brandi Dinh RN - Reason: Patient/family refused - Comment: bs 268) 2100 (Due) insulin lispro (HUMALOG) injection vial 12 Units 12 Units, SubCUTAneous, 3 TIMES DAILY WITH MEALS, First dose on Sun05/01/22 at 0800, Until Discontinued 1015 (Given - Provider: Janelle Michel RN)1220 (Not Given - Provider: Janelle Michel RN - Reason: Patient/family refused)1733 (Given - Provider: Janelle Michel RN) 0815 (Given - Provider: Susan Garcia RN)1148 (Given - Provider: Susan Garcia RN)1620 (Given - Provider: Susan Garcia RN) 0815 (Given - Provider: Susan Garcia RN)1153 (Given - Provider: Susan Garcia RN)1700 (Due) isosorbide mononitrate (IMDUR) extended release tablet 30 mg 30 mg, Oral, DAILY, First dose on Sun05/01/22 at 0900, Until Discontinued, Do not crush or chew. 2015 (Given - Provider: Ann Moran RN) 2051 (Given - Provider: Brandi Dinh RN) 2099 (Due) metoprolol succinate (TOPROL XL) extended release tablet 25 mg 25 mg, Oral, DAILY, First dose on Sun05/01/22 at 0900, Until Discontinued, Do not crush or chew. 1028 (Given - Provider: Janelle Michel RN) 0758 (Given - Provider: Susan Garcia RN) 0812 (Given - Provider: Susan Garcia RN) mometasone-formoterol (DULERA) 200-5 MCG/ACT inhaler 2 puff 2 puff, Inhalation, 2 TIMES DAILY, First dose on Sun04/30/22 at 2030, Until Discontinued, Substituted for Fluticasone-Salmeterol (ADVAIR DPI) 0916 (Given - Provider: Quique Eastman RCP)215 (Not Given - Provider: Joaquin Laughlin RCP - Reason: Other) 0815 (Given - Provider: Tsering Mariee RCP)204 (Given - Provider: Mauri Herring RCP) 0952 (Not Given - Provider: Vanessa Myers RCP - Reason: Patient/family refused)1999 (Due) pantoprazole (PROTONIX) tablet 40 mg 40 mg, Oral, DAILY BEFORE BREAKFAST, First dose on 05/01/22 at 0700, Until Discontinued, Do not crush or break. Substituted for Omeprazole (PRILOSEC). 0543 (Given - Provider: Raeann Cason RN) 0758 (Given - Provider: Susan Garcia RN) 06 (Given - Provider: Brandi Dinh, ROYCE) potassium bicarbonate (K-LYTE) disintegrating tablet 50 mEq (COMPLETED) 50 mEq, Oral, ONCE, 1 dose, On 05/06/22 at 0730, Do not chew or crush. Dissolve flavored tablets completely in 3 to 4 ounces of cold water; unflavored tablets may be dissolved in 3 to 4 ounces of cold juice. Patient to sip slowly over a 5 to 10 minute period. May further dilute if GI adverse effects occur. 0811 (Given - Provider: Susan Garcia RN) pregabalin (LYRICA) capsule 75 mg 75 mg, Oral, 2 TIMES DAILY, First dose on 04/30/22 at 2100, Until Discontinued 1003 (Given - Provider: Janelle Michel RN)2015 (Given - Provider: Ann Moran RN) 08 (Given - Provider: Susan Garcia RN)2047 (Given - Provider: Brandi Dinh, ROYCE) 122 (Given - Provider: Susan Garcia RN)2099 (Due) ranolazine (RANEXA) extended release tablet 1,000 mg 1,000 mg, Oral, 2 TIMES DAILY, First dose on 04/30/22 at 2100, Until Discontinued, Do not crush or break. 1028 (Given - Provider: Janelle Michel RN)2015 (Given - Provider: Ann Moran RN) 0758 (Given - Provider: Susan Garcia RN)2047 (Given - Provider: Brandi Dinh, ROYCE) 08 (Given - Provider: Susan Garcia RN)2099 (Due) sodium chloride flush 0.9 % injection 5-40 mL 5-40 mL, IntraVENous, EVERY 12 HOURS SCHEDULED (2 times per day), First dose on 04/30/22 at 2100, Until Discontinued, For Line Patency: Peripheral IV = 5 mL; Midline or Central Line = 10 mL/lumen. If following IV push medication, administer flush at same rate as the IV push. Flush volume is determined by type of infusion therapy being given. For non-viscous solutions use: Peripheral IV = 5 mL Midline or Central Line = 10 mL/lumen For viscous solutions (i.e. blood components, parenteral nutrition, contrast media, or after obtaining blood sample) use: Peripheral IV = 10 mL Midline or Central Line = 20 mL/lumen 1030 (Given - Provider: Janelle Michel RN)2031 (Not Given - Provider: Ann Moran RN - Reason: Loss of IV access) 0759 (Not Given - Provider: Susan Garcia RN - Reason: Loss of IV access) 0133 (Not Given - Provider: Brandi Dinh RN - Reason: Loss of IV access)0812 (Canceled Entry - Provider: Susan Garcia RN)2100 (Due) PRN Medication Order 05/05/2022 05/06/2022 05/07/2022 0.9 % sodium chloride infusion IntraVENous, at 5-250 mL/hr, PRN, if patient receiving piggyback infusions and maintenance fluids are not ordered OR KVO fluids to protect IV site / prevent frequent line interruptions/ long duration, Starting on 04/30/22 at 1638, For piggyback infusion, administer at same rate as piggyback for a total of 25 mL. Enter 25 mL into dose field and piggyback rate into rate field of order. If piggyback is infusing at a rate less than 100 mL/hr, enter 25 mL into dose field and 100 mL/hr into rate field of order. For KVO fluids, enter rate of 20 mL/hr or less into rate field of order. acetaminophen (TYLENOL) suppository 650 mg(Linked Group 1) 650 mg, Rectal, EVERY 6 HOURS PRN, Starting on 04/30/22 at 2011, Until Discontinued, Pain Mild (1-3), Fever, For temp greater than 100.4 F (38 C), Administer if oral route cannot be used. 1003 (See Alternative - Provider: Janelle Michel RN) acetaminophen (TYLENOL) tablet 650 mg(Linked Group 1) 650 mg, Oral, EVERY 6 HOURS PRN, Starting on Sun04/30/22 at 2010, Until Discontinued, Pain Mild (1-3), Fever, For temp greater than 100.4 F (38 C), Maximum dose of acetaminophen is 4000 mg from all sources in 24 hours. 1003 (Given - Provider: Janelle Michel, RN) dextrose 5 % solution 100 mL/hr, IntraVENous, PRN, Blood sugar less than 70mg/dL, Starting on Sun04/30/22 at 2010, Start infusion following administration of dextrose 50% or glucagon. dextrose 50 % IV solution 12.5 g, IntraVENous, PRN, Starting on Sun04/30/22 at 2010, Until Discontinued, Low blood sugar, Blood glucose less than 70 mg/dL and patient NOT ALERT or NPO., If patient does not respond within 5 minutes, repeat dose x1. Start D5W at 100 mL/hour until ordering provider can be reached. Repeat blood glucose in 15 minutes. If blood glucose is less than 70 mg/dL, repeat treatment and recheck blood glucose in 15 minutes x2. glucagon (rDNA) injection 1 mg 1 mg, IntraMUSCular, PRN, Starting on Sun04/30/22 at 2010, Until Discontinued, Low blood sugar, Blood glucose less than 70 mg/dL and patient NOT ALERT or NPO and does not have IV access., After administration, attempt intravenous access and start D5W at 100 mL/hr. Repeat blood glucose in 15 minutes x2 and notify provider. Glucose (TRUEPLUS) oral gel 15 g 15 g, Oral, PRN, Starting on Sun04/30/22 at 2010, Until Discontinued, Low blood sugar, If blood glucose less than 50 mg/dL and patient ALERT and NOT NPO, give 2 tubes glucose gel. If blood glucose less than 70 mg/dL and patient ALERT and NOT NPO, give 1 tube glucose gel. Repeat blood glucose in 15 minutes. If blood glucose is less than 70 mg/dL, repeat treatment and recheck blood glucose in 15 minutes x2 and notify provider. polyethylene glycol (GLYCOLAX) packet 17 g 17 g, Oral, DAILY PRN, Starting on Sun04/30/22 at 2010, Until Discontinued, Constipation, First line therapy for constipation promethazine (PHENERGAN) tablet 12.5 mg 12.5 mg, Oral, EVERY 6 HOURS PRN, Starting on Sun04/30/22 at 2010, Until Discontinued, Nausea, Vomiting simethicone (MYLICON) chewable tablet 80 mg 80 mg, Oral, EVERY 6 HOURS PRN, Starting on Sun04/30/22 at 2010, Until Discontinued, Flatulence 1810 (Given - Provider: Susan Garcia RN) sodium chloride flush 0.9 % injection 5-40 mL 5-40 mL, IntraVENous, PRN, Starting on Sun04/30/22 at 1638, Until Discontinued, Line Care, After every IV line use, For Line Patency: Peripheral IV = 5 mL; Midline or Central Line = 10 mL/lumen. If following IV push medication, administer flush at same rate as the IV push. Flush volume is determined by type of infusion therapy being given. For non-viscous solutions use: Peripheral IV = 5 mL Midline or Central Line = 10 mL/lumen For viscous solutions (i.e. blood components, parenteral nutrition, contrast media, or after obtaining blood sample) use: Peripheral IV = 10 mL Midline or Central Line = 20 mL/lumen Linked Groups Order Group 1: acetaminophen (TYLENOL) tablet 650 mgJump to med 650 mg, Oral, EVERY 6 HOURS PRN, Starting on Sun04/30/22 at 2010, Until Discontinued, Pain Mild (1-3), Fever, For temp greater than 100.4 F (38 C)
Maximum dose of acetaminophen is 4000 mg from all sources in 24 hours.
Or acetaminophen (TYLENOL) suppository 650 mgJump to med 650 mg, Rectal, EVERY 6 HOURS PRN, Starting on Sun04/30/22 at 2010, Until Discontinued, Pain Mild (1-3), Fever, For temp greater than 100.4 F (38 C)
Administer if oral route cannot be used.
Scheduled Medication Order 02/26/2024 02/27/2024 02/28/2024 aspirin EC tablet 81 mg 81 mg, Oral, Daily, First dose on Sun02/22/24 at 0900, Do not crush, chew, or split., Indications: Atherosclerotic Disease 0924 (Given - Provider: Saleem Carrasco RN) 0907 (Given - Provider: Mina Tillman RN) 1054 (Given - Provider: Kimberley Hair RN) atorvastatin (Lipitor) tablet 40 mg 40 mg, Oral, Daily, First dose on Sun02/22/24 at 0900, Indications: Hyperlipidemia 0924 (Given - Provider: Saleem Carrasco RN) 0906 (Given - Provider: Mina Tillman RN) 1050 (Given - Provider: Kimberley Hair RN) cyanocobalamin (Vitamin B-12) tablet 1,000 mcg 1,000 mcg, Oral, Daily, First dose on Sun02/26/24 at 0900 0927 (Given - Provider: Saleem Carrasco RN) 0917 (Given - Provider: Mina Tillman RN) 1057 (Given - Provider: Kimberley Hair RN) enoxaparin (Lovenox) syringe 40 mg 40 mg, SubCUTAneous, Every 24 hours scheduled (Daily), First dose on Sun02/22/24 at 0900, Indication of Use: Prophylaxis-DVT/PE, Indications: Prophylaxis of Venous Thromboembolism 0924 (Given - Provider: Saleem Carrasco RN) 09 (Given - Provider: Mina Tillman RN) 09 (Not Given - Provider: Kimberley Hair RN - Reason: Patient/family refused) ertapenem (INVanz) 1,000 mg in sodium chloride 0.9 % 50 mL IVPB Mini-Bag Plus 1,000 mg, IntraVENous, at 100 mL/hr, Administer over 30 Minutes, Every 24 hours, First dose on Sun02/22/24 at 0900, Mini-Bag Plus bag, Suspected Indication (Select all that apply): Bloodstream Infection 0924 (New Bag - Provider: Saleem Carrasco RN)0954 (Stopped - Provider: Saleem Carrasco RN) 0907 (New Bag - Provider: Mina Tillman RN)0937 (Stopped - Provider: Mina Tillman RN) 1105 (New Bag - Provider: Kimberley Hair RN)1135 (Stopped - Provider: Kimberley Hair RN) famotidine (Pepcid) tablet 40 mg 40 mg, Oral, Daily, First dose on Sun02/22/24 at 0900 0924 (Given - Provider: Saleem Carrasco RN) 0906 (Given - Provider: Mina Tillman RN) 1054 (Given - Provider: Kimberley Hair RN) insulin glargine (Lantus) injection 50 Units 50 Units, SubCUTAneous, 2 times daily, First dose (after last modification) on 02/23/24 at 2100, Indications: Type 2 Diabetes Mellitus 0924 (Given - Provider: Saleem Carrasco RN)2114 (Given - Provider: Paula Tamayo RN) 0907 (Given - Provider: Mina Tillman RN)2156 (Given - Provider: Elodia Rivera RN) 1058 (Given - Provider: Kimberley Hair RN) Insulin Lispro (Humalog) injection 0-12 Units(Linked Group 1) 0-12 Units, SubCUTAneous, 3 times daily with meals, First dose on Sun02/22/24 at 0800, Medium Dose Correction Algorithm Glucose: Dose: LESS than 139 No Insulin 140-199 2 Unit 200-249 4 Units 250-299 6 Units 300-349 8 Units 350-400 10 Units Above 400 12 Units 0800 (Not Given - Provider: Saleem Carrasco RN - Reason: Order parameters not met - Comment: [phone] (Not Given - Provider: Saleem Carrasco RN - Reason: Order parameters not met - Comment: [phone] (Given - Provider: Saleem Carrasco RN) 0800 (Not Given - Provider: Mina Tillman RN - Reason: Order parameters not met)1200 (Not Given - Provider: Mina Tillman RN - Reason: Order parameters not met)1700 (Not Given - Provider: Kimberley Hair RN - Reason: Order parameters not met) 0800 (Not Given - Provider: Kimberley Hair RN - Reason: Order parameters not met)1200 (Not Given - Provider: Kimberley Hair RN - Reason: Order parameters not met)1700 (Not Given - Provider: Kimberley Hair RN - Reason: Order parameters not met) Insulin Lispro (Humalog) injection 0-12 Units(Linked Group 1) 0-12 Units, SubCUTAneous, Nightly, First dose on Maryg 02/21/24 at 2145, If continuous tube feedings/TPN/NPO, give correction dose based on result, no reduction in dose. If eating or bolus tube feeding: Medium Dose Correction Algorithm Glucose: Dose: LESS than 139 No Insulin 140-199 2 Unit 200-249 4 Units 250-299 6 Units 300-349 8 Units 350-400 10 Units Above 400 12 Units 2114 (Given - Provider: Paula Tamayo RN) 2155 (Given - Provider: Elodia Rivera RN) isosorbide mononitrate ER (Imdur) 24 hr tablet 30 mg 30 mg, Oral, Daily, First dose on Sun02/22/24 at 0900, Do not chew or crush ER tablets; may be divided in half. Due to insoluble matrix embedding, ER tablets that are scored may be split., Indications: Stable Angina Pectoris 923 (Given - Provider: Saleem Carrasco RN) 905 (Given - Provider: Mina Tillman RN) 105 (Given - Provider: Kimberley Hair, RN) ketoconazole (NIZOral) 2 % cream Topical, 2 times daily, First dose on Sun02/22/24 at 2100, Apply to bilateral breasts yeast infection of skin twice daily continue 30 days after odor resolves. 926 (Given - Provider: Saleem Carrasco RN)2114 (Given - Provider: Paula Tamayo RN) 09 (Given - Provider: Mina Tillman RN)2034 (Given - Provider: Elodia Rivera RN) 1100 (Given - Provider: Kimberley Hair, ROYCE) methenamine hippurate (Hiprex) tablet 1 g 1 g, Oral, 2 times daily, First dose on Sun02/22/24 at 0900 926 (Given - Provider: Saleem Carrasco RN)2113 (Given - Provider: Paula Tamayo, ROYCE) 916 (Given - Provider: Mina Tillman RN)2033 (Given - Provider: Eloida Rivera RN) 105 (Given - Provider: Kimberley Hair, ROYCE) metoprolol succinate XL (Toprol-XL) 24 hr tablet 25 mg 25 mg, Oral, Daily, First dose on Sun02/22/24 at 0900, Do not crush or chew., Indications: Heart Failure 923 (Given - Provider: Saleem Carrasco RN) 905 (Given - Provider: Mina Tillman RN) 105 (Given - Provider: Kimberley Hair, ROYCE) potassium chloride CR (Klor-Con M10) ER tablet 10 mEq 10 mEq, Oral, Daily, First dose on Sun02/24/24 at 0930, Best given with food and plenty of water to minimize gastric irritation. Do not crush or chew. 922 (Given - Provider: Saleem Carrasco RN) 905 (Given - Provider: Mina Tillman RN) 1054 (Given - Provider: Kimberley Hair, RN) ranolazine (Ranexa) 12 hr tablet 1,000 mg 1,000 mg, Oral, 2 times daily, First dose on Sun02/22/24 at 0900, Do not crush, chew, or split., Indications: Stable Angina Pectoris 922 (Given - Provider: Saleem Carrasco RN)2113 (Given - Provider: Paula Tamayo, ROYCE) 905 (Given - Provider: Mina Tillman, ROYCE)2033 (Given - Provider: Elodia Rivera RN) 105 (Given - Provider: Kimberley Hair, RN) senna-docusate sodium (Senokot-S) 8.6-50 MG tablet 1 tablet 1 tablet, Oral, 2 times daily, First dose (after last modification) on Sun02/23/24 at 2100, Indications: Constipation 923 (Given - Provider: Saleem Carrasco RN)2113 (Given - Provider: Paula Tamayo, ROYCE) 905 (Given - Provider: Mina Tillman RN)2033 (Not Given - Provider: Elodia Rivera RN - Reason: Patient/family refused) 09 (Not Given - Provider: Kimberley Hair RN - Reason: Patient/family refused) venlafaxine XR (Effexor XR) 24 hr capsule 75 mg 75 mg, Oral, Daily, First dose on Sun02/22/24 at 0900, Capsule may be swallowed whole, or may be opened and its contents sprinkled on applesauce if consumed immediately without chewing. Do not crush or chew., Indications: Major Depressive Disorder 923 (Given - Provider: Saleem Carrasoc RN) 906 (Given - Provider: Mina Tillman RN) 1054 (Given - Provider: Kimberley Hair, RN) PRN Medication Order 02/26/2024 02/27/2024 02/28/2024 acetaminophen (Tylenol) suppository 650 mg(Linked Group 2) 650 mg, Rectal, Every 6 hours PRN, mild pain (1-3), fever, For temp greater than 100.4 F (38 C), Starting on Sun02/21/24 at 2140, Administer if oral route cannot be used. Maximum dose of acetaminophen is 4000 mg from all sources in 24 hours. 1439 (See Alternative - Provider: Mina Tillman RN) acetaminophen (Tylenol) tablet 650 mg(Linked Group 2) 650 mg, Oral, Every 6 hours PRN, mild pain (1-3), fever, For temp greater than 100.4 F (38 C), Starting on Sun02/21/24 at 2140, Maximum dose of acetaminophen is 4000 mg from all sources in 24 hours. 1439 (Given - Provider: Mina Tillman RN) bisacodyl (Dulcolax) EC tablet 5 mg 5 mg, Oral, Daily PRN, constipation, Starting on Sun02/22/24 at 0346, Do not give within 1 hour of antacids, milk, or dairy products. Do not crush, chew, or split. dextrose 5 % infusion 100 mL/hr, IntraVENous, PRN, Blood sugar less than 70mg/dL, Starting on Sun02/21/24 at 2140, Start infusion following administration of dextrose 50% or glucagon. dextrose 50 % solution 12.5 g 12.5 g, IntraVENous, PRN, low blood sugar, Blood glucose less than 70 mg/dL and patient NOT ALERT or NPO., Starting on Sun02/21/24 at 2140, If patient does not respond within 5 minutes, repeat dose x1. Start D5W at 100 mL/hour until ordering provider can be reached. Repeat blood glucose in 15 minutes. If blood glucose is less than 70 mg/dL, repeat treatment and recheck blood glucose in 15 minutes x2. If using Glucostabilizer, dose as instructed per system. glucagon (human recombinant) injection 1 mg 1 mg, IntraMUSCular, PRN, low blood sugar, Blood glucose less than 70 mg/dL and patient NOT ALERT or NPO and does not have IV access., Starting on Sun02/21/24 at 2140, After administration, attempt intravenous access and start D5W at 100 mL/hr. Repeat blood glucose in 15 minutes x2 and notify provider. glucose oral gel 15 g 15 g, Oral, As needed, low blood sugar, Starting on Sun02/21/24 at 2140, If blood glucose less than 50 mg/dL and patient ALERT and NOT NPO, give 2 tubes glucose gel. If blood glucose less than 70 mg/dL and patient ALERT and NOT NPO, give 1 tube glucose gel. Repeat blood glucose in 15 minutes. If blood glucose is less than 70 mg/dL, repeat treatment and recheck blood glucose in 15 minutes x2 and notify provider. ipratropium-albuterol (Duo-Neb) 0.5-2.5 mg/3 mL nebulizer solution 3 mL 3 mL, Nebulization, Every 4 hours PRN, wheezing, shortness of breath, Starting on Sun02/21/24 at 2140 lidocaine PF (Xylocaine) 1 % injection (COMPLETED) As needed, Starting on Sun02/27/24 at 1045, Intraprocedure 1045 (Given - Provider: Olga Damon PA-C) naloxone (Narcan) injection 0.4 mg 0.4 mg, IntraVENous, Every 5 min PRN, opioid reversal, respiratory depression, Starting on Sun02/22/24 at 0355, +++ For RR <10, pinpoint pupils, over sedation for opioid reversal - MUST notify armature connector provider immediately after first dose, may give IM or SQ if no IV access +++ oxyCODONE-acetaminophen (Percocet) 5-325 MG per tablet 1 tablet 1 tablet, Oral, Every 6 hours PRN, severe pain (7-10), Starting on Sun02/22/24 at 0347, Maximum dose of acetaminophen is 4000 mg from all sources in 24 hours., Indications: Pain 0923 (Given - Provider: Saleem Carrasco RN)1641 (Given - Provider: Saleem Carrasco RN) 0319 (Given - Provider: Paula Tamayo RN)1005 (Given - Provider: Mina Tillman, ROYCE)2034 (Given - Provider: Elodia Rivera RN) 1820 (Given - Provider: Kimberley Hair RN) polyethylene glycol (PEG) 3350 (Miralax) packet 17 g 17 g, Oral, Daily PRN, constipation, Starting on Sun02/21/24 at 2140, 1st line for treatment of constipation - give scheduled if no bowel movement in past 24 hours. promethazine (Phenergan) injection 12.5 mg(Linked Group 3) 12.5 mg, IntraMUSCular, Every 6 hours PRN, nausea, vomiting, Starting on Sun02/22/24 at 0338, Only to be given as IM injection. promethazine (Phenergan) suppository 12.5 mg(Linked Group 3) 12.5 mg, Rectal, Every 6 hours PRN, nausea, vomiting, Starting on Sun02/22/24 at 0338 promethazine (Phenergan) tablet 12.5 mg(Linked Group 3) 12.5 mg, Oral, Every 6 hours PRN, nausea, vomiting, Starting on Sun02/22/24 at 0338 QUEtiapine (SEROquel) tablet 12.5 mg 12.5 mg, Oral, 2 times daily PRN, agitation, Starting on Sun02/21/24 at 2140 Linked Groups Order Group 1: Insulin Lispro (Humalog) injection 0-12 UnitsJump to med 0-12 Units, SubCUTAneous, 3 times daily with meals, First dose on Sun02/22/24 at 0800, Medium Dose Correction Algorithm Glucose: Dose: LESS than 139 No Insulin 140-199 2 Unit 200-249 4 Units 250-299 6 Units 300-349 8 Units 350-400 10 Units Above 400 12 Units And Insulin Lispro (Humalog) injection 0-12 UnitsJump to med 0-12 Units, SubCUTAneous, Nightly, First dose on Sun02/21/24 at 2145, If continuous tube feedings/TPN/NPO, give correction dose based on result, no reduction in dose. If eating or bolus tube feeding: Medium Dose Correction Algorithm Glucose: Dose: LESS than 139 No Insulin 140-199 2 Unit 200-249 4 Units 250-299 6 Units 300-349 8 Units 350-400 10 Units Above 400 12 Units Group 2: acetaminophen (Tylenol) tablet 650 mgJump to med 650 mg, Oral, Every 6 hours PRN, mild pain (1-3), fever, For temp greater than 100.4 F (38 C), Starting on Sun02/21/24 at 2140, Maximum dose of acetaminophen is 4000 mg from all sources in 24 hours. Or acetaminophen (Tylenol) suppository 650 mgJump to med 650 mg, Rectal, Every 6 hours PRN, mild pain (1-3), fever, For temp greater than 100.4 F (38 C), Starting on Margy 02/21/24 at 2140, Administer if oral route cannot be used. Maximum dose of acetaminophen is 4000 mg from all sources in 24 hours. Group 3: promethazine (Phenergan) tablet 12.5 mgJump to med 12.5 mg, Oral, Every 6 hours PRN, nausea, vomiting, Starting on Sun02/22/24 at 0338 Or promethazine (Phenergan) injection 12.5 mgJump to med 12.5 mg, IntraMUSCular, Every 6 hours PRN, nausea, vomiting, Starting on Sun02/22/24 at 0338, Only to be given as IM injection. Or promethazine (Phenergan) suppository 12.5 mgJump to med 12.5 mg, Rectal, Every 6 hours PRN, nausea, vomiting, Starting on Sun02/22/24 at 0338 Scheduled Medication Order 03/07/2024 03/08/2024 03/09/2024 aspirin EC tablet 81 mg 81 mg, Oral, Daily, First dose on Margy 03/06/24 at 0900, Do not crush, chew, or split., Indications: Atherosclerotic Disease 1145 (Given - Provider: Esther Fuller LPN - Comment: Patient sleeping / refused) 0831 (Given - Provider: Enedelia Nunez RN) 0924 (Given - Provider: Erica Conley RN) atorvastatin (Lipitor) tablet 40 mg 40 mg, Oral, Daily, First dose on Margy 03/06/24 at 0900, Indications: Hyperlipidemia 1145 (Given - Provider: Esther Fuller LPN - Comment: Patient sleeping / refused) 0831 (Given - Provider: Enedelia Nunez RN) 0926 (Given - Provider: Erica Conley RN) cyanocobalamin (Vitamin B-12) tablet 1,000 mcg 1,000 mcg, Oral, Daily, First dose on Margy 03/06/24 at 0900 1147 (Given - Provider: Esther Fuller LPN - Comment: Patient sleeping / refused) 0833 (Given - Provider: Enedelia Nunez RN) 0930 (Given - Provider: Erica Conley RN) enoxaparin (Lovenox) syringe 40 mg 40 mg, SubCUTAneous, Every 24 hours scheduled (Daily), First dose on Margy 03/06/24 at 0900, Indication of Use: Prophylaxis-DVT/PE, Indications: Prophylaxis of Venous Thromboembolism 1144 (Given - Provider: Esther Fuller LPN - Comment: Patient sleeping / refused) 0832 (Given - Provider: Enedelia Nunez RN) 09 (Given - Provider: Erica Conley, ROYCE) famotidine (Pepcid) tablet 20 mg 20 mg, Oral, Daily, First dose on Margy 03/06/24 at 0900 1145 (Given - Provider: Esther Fuller LPN - Comment: Patient sleeping / refused) 0831 (Given - Provider: Enedelia Nunez, ROYCE) 09 (Given - Provider: Erica Conley RN) insulin glargine (Lantus) injection 25 Units 25 Units, SubCUTAneous, 2 times daily, First dose (after last modification) on [facility] 03/08/24 at 0900, Indications: Type 2 Diabetes Mellitus 09 (Not Given - Provider: Enedelia Nunez RN - Reason: Other - Comment: hold per dr. talamantes)2008 (Given - Provider: Celso Wong, ROYCE) 924 (Given - Provider: Erica Conley, ROYCE) insulin glargine (Lantus) injection 50 Units (CANCELED) 50 Units, SubCUTAneous, 2 times daily, First dose on Margy 03/06/24 at 0900, Indications: Type 2 Diabetes Mellitus 1144 (Given - Provider: Esther Fuller LPN - Comment: Patient sleeping / refused)2100 (Not Given - Provider: Jeannine James RN - Reason: Patient/family refused) Insulin Lispro (Humalog) injection 0-6 Units(Linked Group 1) 0-6 Units, SubCUTAneous, 3 times daily with meals, First dose on Margy 03/06/24 at 0800, Low Dose Correction Algorithm Glucose: Dose: LESS than 139 No Insulin 140-199 1 Unit 200-249 2 Units 250-299 3 Units 300-349 4 Units 350-400 5 Units Above 400 6 Units 0800 (Not Given - Provider: Esther Fuller LPN - Reason: Order parameters not met)1200 (Not Given - Provider: Esther Fuller LPN - Reason: Order parameters not met)1700 (Not Given - Provider: Esther Fuller LPN - Reason: Order parameters not met) 0800 (Not Given - Provider: Enedelia Nunez RN - Reason: Order parameters not met)1152 (Not Given - Provider: Enedelia Nunez RN - Reason: Order parameters not met)1702 (Given - Provider: Enedelia Nunez RN) 0925 (Given - Provider: Erica Conley RN)1200 (Canceled Entry - Provider: Automatic Discharge Provider - Comment: Automatically canceled at discontinue of medication order) Insulin Lispro (Humalog) injection 0-6 Units(Linked Group 1) 0-6 Units, SubCUTAneous, Nightly, First dose on Margy 03/06/24 at 2100, If continuous tube feedings/TPN/NPO, give correction dose based on result, no reduction in dose. If eating or bolus tube feeding: Low Dose Correction Algorithm Glucose: Dose: LESS than 139 No Insulin 140-199 1 Unit 200-249 2 Units 250-299 3 Units 300-349 4 Units 350-400 5 Units Above 400 6 Units 2100 (Not Given - Provider: Jeannine James RN - Reason: Contraindicated - Comment: 112) 2008 (Given - Provider: Celso Wong RN) isosorbide mononitrate ER (Imdur) 24 hr tablet 30 mg 30 mg, Oral, Daily, First dose on Margy 03/06/24 at 0900, Do not chew or crush ER tablets; may be divided in half. Due to insoluble matrix embedding, ER tablets that are scored may be split., Indications: Stable Angina Pectoris 1144 (Given - Provider: Esther Fuller LPN - Comment: Patient sleeping / refused) 0830 (Given - Provider: Enedelia Nunez RN) 0925 (Given - Provider: Erica Conley RN) linaGLIPtin (Tradjenta) tablet 5 mg 5 mg, Oral, Daily, First dose on Margy 03/06/24 at 0900, Indications: Type 2 Diabetes Mellitus 1145 (Given - Provider: Esther Fuller LPN - Comment: Patient sleeping / refused) 0831 (Given - Provider: Enedelia Nunez RN) 0924 (Given - Provider: Erica Conley RN) methenamine hippurate (Hiprex) tablet 1 g 1 g, Oral, 2 times daily, First dose on Margy 03/06/24 at 0900 1147 (Given - Provider: Esther Fuller LPN - Comment: Patient sleeping / refused)2118 (Given - Provider: Jeannine James RN) 08 (Given - Provider: Enedelia Nunez RN)2018 (Given - Provider: Celso Wong, ROYCE) 09 (Given - Provider: Erica Conley RN) metoprolol succinate XL (Toprol-XL) 24 hr tablet 25 mg 25 mg, Oral, Daily, First dose on Margy 03/06/24 at 0900, Do not crush or chew., Indications: Heart Failure 1145 (Given - Provider: Esther Fuller LPN - Comment: Patient sleeping / refused) 08 (Given - Provider: Enedelia Nunez RN) 09 (Given - Provider: Erica Conley RN) mometasone-formoterol (Dulera 200) 200-5 MCG/ACT inhaler 2 puff 2 puff, Inhalation, 2 times daily, First dose on Margy 03/06/24 at 0800, Rinse mouth with water after use to reduce aftertaste and incidence of candidiasis. Do not swallow. 1145 (Given - Provider: Esther Fuller LPN - Comment: Patient sleeping / refused)2118 (Given - Provider: Jeannine James RN) 08 (Given - Provider: Enedelia Nunez RN)1999 (Not Given - Provider: Celso Wong RN - Reason: Patient/family refused) 09 (Given - Provider: Erica Conley RN) ranolazine (Ranexa) 12 hr tablet 1,000 mg 1,000 mg, Oral, 2 times daily, First dose on Margy 03/06/24 at 0900, Do not crush, chew, or split., Indications: Stable Angina Pectoris 1144 (Given - Provider: Esther Fuller LPN - Comment: Patient sleeping / refused)2119 (Given - Provider: Jeannine James RN) 08 (Given - Provider: Enedelia Nunez RN)2008 (Given - Provider: Celso Wong, ROYCE) 09 (Given - Provider: Erica Conley RN) senna-docusate sodium (Senokot-S) 8.6-50 MG tablet 1 tablet 1 tablet, Oral, 2 times daily, First dose on Margy 03/06/24 at 0900, Indications: Constipation 1145 (Given - Provider: Esther Fuller LPN - Comment: Patient sleeping / refused)2099 (Not Given - Provider: Jeannine James RN - Reason: Patient/family refused) 08 (Given - Provider: Enedelia Nunez, ROYCE)2008 (Given - Provider: Celso Wong RN) 923 (Given - Provider: Erica Conley RN) venlafaxine XR (Effexor XR) 24 hr capsule 75 mg 75 mg, Oral, Daily, First dose on Margy 03/06/24 at 0900, Capsule may be swallowed whole, or may be opened and its contents sprinkled on applesauce if consumed immediately without chewing. Do not crush or chew., Indications: Major Depressive Disorder 1145 (Given - Provider: Esther Fuller LPN - Comment: Patient sleeping / refused) 830 (Given - Provider: Enedelia Nunez RN) 924 (Given - Provider: Erica Conley RN) PRN Medication Order 03/07/2024 03/08/2024 03/09/2024 acetaminophen (Tylenol) suppository 650 mg(Linked Group 2) 650 mg, Rectal, Every 6 hours PRN, mild pain (1-3), fever, For temp greater than 100.4 F (38 C), Starting on Margy 03/06/24 at 0702, Administer if oral route cannot be used. Maximum dose of acetaminophen is 4000 mg from all sources in 24 hours. acetaminophen (Tylenol) tablet 650 mg(Linked Group 2) 650 mg, Oral, Every 6 hours PRN, mild pain (1-3), fever, For temp greater than 100.4 F (38 C), Starting on Margy 03/06/24 at 0702, Maximum dose of acetaminophen is 4000 mg from all sources in 24 hours. alteplase (Cathflo Activase) 2 mg in sterile water 1 mL injection 2 mg, IntraCATHeter, As needed, line care, Starting on Margy 03/06/24 at 0706, For occluded catheter ports. Instill 2 mg into each port, and retain for 0.5 - 2 hours. May repeat if catheter remains occluded. Dilute each 2 mg vial with 2.2 mL sterile water to give 1 mg/mL final concentration. Swirl gently to mix; do not shake. alteplase (Cathflo Activase) 2 mg in sterile water 1 mL injection 2 mg, IntraCATHeter, As needed, line care, Starting on Sun03/06/24 at 1857, For occluded catheter ports. Instill 2 mg into each port, and retain for 0.5 - 2 hours. May repeat if catheter remains occluded. Dilute each 2 mg vial with 2.2 mL sterile water to give 1 mg/mL final concentration. Swirl gently to mix; do not shake. 0230 (Given - Provider: Jeannine James RN) dextrose 5 % infusion 100 mL/hr, IntraVENous, PRN, Blood sugar less than 70mg/dL, Starting on Sun03/06/24 at 0300, Start infusion following administration of dextrose 50% or glucagon. dextrose 50 % solution 12.5 g 12.5 g, IntraVENous, PRN, low blood sugar, Blood glucose less than 70 mg/dL and patient NOT ALERT or NPO., Starting on Sun03/06/24 at 0300, If patient does not respond within 5 minutes, repeat dose x1. Start D5W at 100 mL/hour until ordering provider can be reached. Repeat blood glucose in 15 minutes. If blood glucose is less than 70 mg/dL, repeat treatment and recheck blood glucose in 15 minutes x2. If using Glucostabilizer, dose as instructed per system. glucagon (human recombinant) injection 1 mg 1 mg, IntraMUSCular, PRN, low blood sugar, Blood glucose less than 70 mg/dL and patient NOT ALERT or NPO and does not have IV access., Starting on Sun03/06/24 at 0300, After administration, attempt intravenous access and start D5W at 100 mL/hr. Repeat blood glucose in 15 minutes x2 and notify provider. glucose oral gel 15 g 15 g, Oral, As needed, low blood sugar, Starting on Sun03/06/24 at 0300, If blood glucose less than 50 mg/dL and patient ALERT and NOT NPO, give 2 tubes glucose gel. If blood glucose less than 70 mg/dL and patient ALERT and NOT NPO, give 1 tube glucose gel. Repeat blood glucose in 15 minutes. If blood glucose is less than 70 mg/dL, repeat treatment and recheck blood glucose in 15 minutes x2 and notify provider. hydrOXYzine pamoate (Vistaril) capsule 25 mg 25 mg, Oral, Every 8 hours PRN, itching, Starting on Margy 03/06/24 at 1034, Indications: Atopic Dermatitis 1326 (Given - Provider: Enedelia Nunez, RN) naloxone (Narcan) injection 0.4 mg 0.4 mg, IntraVENous, Every 5 min PRN, opioid reversal, respiratory depression, Starting on Margy 03/06/24 at 0301, +++ For RR <10, pinpoint pupils, over sedation for opioid reversal - MUST notify armature connector provider immediately after first dose, may give IM or SQ if no IV access +++ oxyCODONE-acetaminophen (Percocet) 5-325 MG per tablet 1 tablet 1 tablet, Oral, Every 6 hours PRN, severe pain (7-10), Starting on Sun03/06/24 at 0259, Maximum dose of acetaminophen is 4000 mg from all sources in 24 hours., Indications: Pain 1326 (Given - Provider: Enedelia Nunez RN)2008 (Given - Provider: Celso Wong RN) polyethylene glycol (PEG) 3350 (Miralax) packet 17 g 17 g, Oral, Daily PRN, constipation, Starting on Sun03/06/24 at 0702, 1st line for treatment of constipation - give scheduled if no bowel movement in past 24 hours. Linked Groups Order Group 1: Insulin Lispro (Humalog) injection 0-6 UnitsJump to med 0-6 Units, SubCUTAneous, 3 times daily with meals, First dose on Sun03/06/24 at 0800, Low Dose Correction Algorithm Glucose: Dose: LESS than 139 No Insulin 140- 199 1 Unit 200-249 2 Units 250-299 3 Units 300-349 4 Units 350-400 5 Units Above 400 6 Units And Insulin Lispro (Humalog) injection 0-6 UnitsJump to med 0-6 Units, SubCUTAneous, Nightly, First dose on Margy 03/06/24 at 2100, If continuous tube feedings/TPN/NPO, give correction dose based on result, no reduction in dose. If eating or bolus tube feeding: Low Dose Correction Algorithm Glucose: Dose: LESS than 139 No Insulin 140-199 1 Unit 200-249 2 Units 250-299 3 Units 300-349 4 Units 350-400 5 Units Above 400 6 Units Group 2: acetaminophen (Tylenol) tablet 650 mgJump to med 650 mg, Oral, Every 6 hours PRN, mild pain (1-3), fever, For temp greater than 100.4 F (38 C), Starting on Margy 03/06/24 at 0702, Maximum dose of acetaminophen is 4000 mg from all sources in 24 hours. Or acetaminophen (Tylenol) suppository 650 mgJump to med 650 mg, Rectal, Every 6 hours PRN, mild pain (1-3), fever, For temp greater than 100.4 F (38 C), Starting on Margy 03/06/24 at 0702, Administer if oral route cannot be used. Maximum dose of acetaminophen is 4000 mg from all sources in 24 hours. Care Teams (unrecognized sec tion and content) Team Status: Inactive Member Role Status Dates Lucy SALGADO Attending Provider Active Team Status: Active Member Role Status Dates Lucy SALGADO Attending Provider Active Team Status: Inactive Member Role Status Dates Lucy SALGADO Attending Provider, Referring Provi kenan Active Team Status: Inactive Member Role Status Dates Lucy Quick Attending Provider Active Team Status: Inactive Member Role Status Dates Lucy Quick Attending Provider, Referring Provider Active Team Status: Active Member Role Status Dates Lucy Quick Attending Provider Active Clinical Physician Assistant Relationship Specialty Start Date End Date Moe Meyer MD [address] [place] [address] PCP - General 10/02/21 Clinical Physician Assistant Relationship Specialty Start Date End Date Maryan Rick, DO [address] [place] [facility] [address] [place] [address] Referring Internal Medicine 07/06/21 Susan Cuello Formerly [facility] [address] [place] [address] Pharmacist Primary Care 08/05/21 Sejal Calvin, HAM DOCTOR.TOUR ACTOR [address] [facility] [place], [place] [id number] Referring Family Practice 12/04/21 Clinical Physician Assistant Relationship Specialty Start Date End Date Maryan Rick, DO [address] [facility] [address] [place] [address] Referring Internal Medicine 07/06/21 Susan Cuello, Formerly [facility] [address] [place] [address] Pharmacist Primary Care 08/05/21 Sejal Calvin, HAM DOCTOR.TOUR ACTOR [address] [place] [address] Referring Family Practice 12/04/21 Clinical Physician Assistant Relationship Specialty Start Date End Date Maryan Rick DO [address] [facility] [address] [place] [address] Referring Internal Medicine 07/06/21 Susan Cuello, Formerly [facility] [address] [place] [address] Pharmacist Primary Care 08/05/21 Sejal Calvin, HAM DOCTOR.TOUR ACTOR [address] [place] [address] Referring Family Practice 12/04/21 Clinical Physician Assistant Relationship Specialty Start Date End Date Moe Meyer MD [address] [place] [id number] PCP - General Family Practice 02/27/22 Maryan Rick, DO [address] [facility] [address] [place] [address] Referring Internal Medicine 07/06/21 Susan Cuello, Formerly [facility] [address] [place] [address] Pharmacist Primary Care 08/05/21 Sejal Calvin, HAM DOCTOR.TOUR ACTOR [address] [place] [address] Referring Family Practice 12/04/21 Clinical Physician Assistant Relationship Specialty Start Date End Date Moe Meyer MD [address] [place] [phone] PCP - General Family Practice 02/27/22 Maryan Rick, DO [address] [place] [address] Referring Internal Medicine 07/06/21 MinSusan, Formerly [facility] [address] [place] [address] Pharmacist Primary Care 08/05/21 Sejal Calvin, HAM DOCTOR.TOUR ACTOR [address] [place] [address] Referring Family Practice 12/04/21 Clinical Physician Assistant Relationship Specialty Start Date End Date Moe Meyer MD [address] [place] [address] PCP - General Family Practice 02/27/22 Maryan Rick DO [address] [place] [address] Referring Internal Medicine 07/06/21 Susan Cuello, Formerly [facility] [address] [place] [address] Pharmacist Primary Care 08/05/21 Sejal Calvin, HAM DOCTOR.TOUR ACTOR [address] [place] [address] Referring Family Practice 12/04/21 Clinical Physician Assistant Relationship Specialty Start Date End Date Moe Meyer MD [address] [place] [address] PCP - General Family Practice 02/27/22 Maryan Rick DO [address] [place] [address] Referring Internal Medicine 07/06/21 Susan Cuello, Formerly [facility] [address] [place] [address] Pharmacist Primary Care 08/05/21 Sejal Calvin, HAM DOCTOR.TOUR ACTOR [address] [place] [address] Referring Family Practice 12/04/21 Clinical Physician Assistant Relationship Specialty Start Date End Date oMe Meyer MD [address] [place] [address] PCP - General Family Practice 02/27/22 Maryan Rick, DO 1 [facility] [address] [place] [address] Referring Internal Medicine 07/06/21 Susan Cuello, Formerly [facility] [address] [place] [address] Pharmacist Primary Care 08/05/21 Sejal Calvin, HAM DOCTOR.TOUR ACTOR 1 [place] [address] Referring Family Practice 12/04/21 Clinical Physician Assistant Relationship Specialty Start Date End Date Moe Meyer MD [address] [place] [address] PCP - General Family Practice 02/27/22 Maryan Rick, DO [address] [facility] [facility] [address] [place] [address] Referring Internal Medicine 07/06/21 Susan Cuello, Formerly [facility] [address] [place] [address] Pharmacist Primary Care 08/05/21 Sejal Calvin, HAM DOCTOR.TOUR ACTOR [address] [facility] [place] [address] Referring Family Practice 12/04/21 Clinical Physician Assistant Relationship Specialty Start Date End Date Moe Meyer MD [address] [place] [address] PCP - General Family Practice 02/27/22 Maryan Rick, DO [address] [facility] [address] [place] [address] Referring Internal Medicine 07/06/21 Susan Cuello, Formerly [facility] [address] [place] [address] Pharmacist Primary Care 08/05/21 Sejal Calvin, HAM DOCTOR.TOUR ACTOR [address] [place] [address] Referring Family Practice 12/04/21 Clinical Physician Assistant Relationship Specialty Start Date End Date Moe Meyer MD [address] [place] [address] PCP - General Family Practice 02/27/22 Maryan Rick, DO [address] [facility] [address] [facility] [address] [place] [address] Referring Internal Medicine 07/06/21 Susan Cuello, Formerly [facility] [address] [place] [address] Pharmacist Primary Care 08/05/21 Sejla Calvin, HAM DOCTOR.TOUR ACTOR [address] [place] [address] Referring Family Practice 12/04/21 Clinical Physician Assistant Relationship Specialty Start Date End Date Moe Meyer MD [address] [place] [address] PCP - General Family Practice 02/27/22 Maryan Rick, DO [address] [facility] [address] [place] [address] Referring Internal Medicine 07/06/21 Susan Cuello Former[facility] [address] [address] Pharmacist Primary Care 08/05/21 Sejal Calvin, HAM DOCTOR.TOUR ACTOR [address] [place] [address] Referring Family Practice 12/04/21 Clinical Physician Assistant Relationship Specialty Start Date End Date Moe Meyer MD [address] [place] [phone] PCP - General Family Practice 02/27/22 Maryan Rick, DO [address] [facility] [facility] [address] [place] [address] Referring Internal Medicine 07/06/21 Susan Cuello Formerly [facility] [address] [address] Pharmacist Primary Care 08/05/21 Sejal Calvin, HAM DOCTOR.TOUR ACTOR [address] [place] [address] Referring Family Practice 12/04/21 Clinical Physician Assistant Relationship Specialty Start Date End Date Frankie Deng MD [address] [place] [address], [address] [place] [address] PCP - General Gerontology 04/04/22 Maryan Rick, DO [address] [address] [facility] [address] [place] [address] Referring Internal Medicine 07/06/21 Susan Cuello Former[facility] [address] [place] [address] Pharmacist Primary Care 08/05/21 Sejal Calvin, HAM DOCTOR.TOUR ACTOR [address] [place] [address] Referring Family Practice 12/04/21 Clinical Physician Assistant Relationship Specialty Start Date End Date Frankie Deng MD [address] [place] [address], [address] [place], [place] [id number] PCP - General Gerontology 04/04/22 Maryan Rick DO 1 [facility] [address] [place] [address] Referring Internal Medicine 07/06/21 Susan Cuello, Formerly [facility] [address] [place] [address] Pharmacist Primary Care 08/05/21 Sejal Calvin, HAM DOCTOR.TOUR ACTOR 1 [facility] [place] [address] Referring [facility] 12/04/21 Clinical Physician Assistant Relationship Specialty Start Date End Date Frankie Deng MD [address] [place] [address], [address] [place], [place] [id number] PCP - General Gerontology 04/04/22 Maryan Rick, DO 1 [facility] [facility] [address] [place] [address] Referring Internal Medicine 07/06/21 Susan Cuello, Formerly [facility] [address] [place] [address] Pharmacist Primary Care 08/05/21 Sejal Calvin, HAM DOCTOR.TOUR ACTOR [address] [facility] [place], [place] [id number] Referring Family Practice 12/04/21 Clinical Physician Assistant Relationship Specialty Start Date End Date Frankie Deng MD [address] [facility], [address] [place] [address] PCP - General Gerontology 04/04/22 Maryan Rick, DO [address] [facility] [address] [place], [place] [id number] Referring Internal Medicine 07/06/21 Susan Cuello, Formerly [facility] [address] [place] [address] Pharmacist Primary Care 08/05/21 Sejal Calvin, HAM DOCTOR.TOUR ACTOR 1 [place], [place] [id number] Referring Family Practice 12/04/21 Clinical Physician Assistant Relationship Specialty Start Date End Date Frankie Deng MD [address] [facility] [address] [place] [address] PCP - General Geriatric Medicine 05/02/22 Clinical Physician Assistant Relationship Specialty Start Date End Date Frankie Deng MD [address] [facility], [address] [place] [address] PCP - General Gerontology 04/04/22 Maryan Rick, DO 1 [facility] [address] [place], [place] [id number] Referring Internal Medicine 07/06/21 Susan Cuello, Formerly [facility] [address] [place] [address] Pharmacist Primary Care 08/05/21 Sejal Calvin, HAM DOCTOR.TOUR ACTOR [address] [place], [place] [id number] Referring Family Practice 12/04/21 Clinical Physician Assistant Relationship Specialty Start Date End Date Frankie Deng MD [facility], [address] [place] [address] PCP - General Gerontology 04/04/22 Maryan Rick, DO 1 [facility] [address] [place], [place] [id number] Referring Internal Medicine 07/06/21 [facility] [address] [place] [address] Pharmacist Primary Care 08/05/21 Sejal Calvin, HAM DOCTOR.TOUR ACTOR [address] [place], [place] [id number] Referring Family Practice 12/04/21 Clinical Physician Assistant Relationship Specialty Start Date End Date Agustin Barahona, HAM DOCTOR.TOUR ACTOR [address] [facility] [address] [place], [place] [id number] PCP - General Family Practice 06/23/22 Maryan Rick, DO 1 [facility] [address] [place] [address] Referring Internal Medicine 07/06/21 [facility], [facility] [address] [place] [address] Pharmacist Primary Care 08/05/21 Sejal Calvin, HAM DOCTOR.TOUR ACTOR [address] [place], [place] [id number] Referring Family Practice 12/04/21 Clinical Physician Assistant Relationship Specialty Start Date End Date Agustin Barahona, HAM DOCTOR.TOUR ACTOR [address] [facility] [address] [place] [address] PCP - General Family Practice 06/23/22 Maryan Rick DO [address] [place] [address] Referring Internal Medicine 07/06/21 MinSusan, Formerly [facility] [address] [place] [address] Pharmacist Primary Care 08/05/21 Sejal Calvin, HAM DOCTOR.TOUR ACTOR [address] [place] [address] Referring Family Practice 12/04/21 Clinical Physician Assistant Relationship Specialty Start Date End Date Agustin Barahona, HAM DOCTOR.TOUR ACTOR [address] [facility] [address] [place] [address] PCP - General Family Practice 06/23/22 Maryan Rick DO [address] [place] [address] Referring Internal Medicine 07/06/21 MinSusan, Formerly [facility] [address] [place] [address] Pharmacist Primary Care 08/05/21 Sejal Calvin, HAM DOCTOR.TOUR ACTOR [address] [place] [address] Referring Family Practice 12/04/21 Clinical Physician Assistant Relationship Specialty Start Date End Date Agustin Barahona, HAM DOCTOR.TOUR ACTOR [address] [facility] [address] [place] [address] PCP - General Family Practice 06/23/22 Maryan Rick DO [address] [place] [address] Referring Internal Medicine 07/06/21 MinSusan, Formerly [facility] [address] [place] [address] Pharmacist Primary Care 08/05/21 Sejal Calvin, HAM DOCTOR.TOUR ACTOR [address] [place] [address] Referring Family Practice 12/04/21 Clinical Physician Assistant Relationship Specialty Start Date End Date Agustin Barahona, HAM DOCTOR.TOUR ACTOR [address] [facility] [address] [place] [address] PCP - General Family Practice 06/23/22 Maryan Rick DO [address] [facility] [address] [place] [address] Referring Internal Medicine 07/06/21 MinSusan, Formerly [facility] [address] [place] [address] Pharmacist Primary Care 08/05/21 Sejal Calvin, HAM DOCTOR.TOUR ACTOR [address] [place] [address] Referring Family Practice 12/04/21 Clinical Physician Assistant Relationship Specialty Start Date End Date Agustin Barahona, HAM DOCTOR.TOUR ACTOR [address] [facility] [address] [place] [address] PCP - General Family Practice 06/23/22 Maryan Rick DO 1 [facility] [address] [place] [address] Referring Internal Medicine 07/06/21 MinSusan, Formerly [facility] [address] [place] [address] Pharmacist Primary Care 08/05/21 Sejal Calvin, HAM DOCTOR.TOUR ACTOR [address] [place] [address] Referring Family Practice 12/04/21 Clinical Physician Assistant Relationship Specialty Start Date End Date Agustin Barahona, HAM DOCTOR.TOUR ACTOR [address] [facility] [address] [place] [address] PCP - General Family Practice 06/23/22 Maryan Rick, DO [address] [address] [place] [address] Referring Internal Medicine 07/06/21 Sejal Calvin, HAM DOCTOR.TOUR ACTOR [address] [place] [address] Referring Family Practice 12/04/21 Clinical Physician Assistant Relationship Specialty Start Date End Date Agustin Barahona, HAM DOCTOR.TOUR ACTOR [address] [facility] [address] [place] [address] PCP - General Family Practice 06/23/22 Maryan Rick DO [address] [place] [address] Referring Internal Medicine 07/06/21 Sejal Calvin, HAM DOCTOR.TOUR ACTOR [address] [place] [address] Referring Family Practice 12/04/21 Clinical Physician Assistant Relationship Specialty Start Date End Date Agustin Barahona, HAM DOCTOR.TOUR ACTOR [address] [facility] [address] [place] [address] PCP - General Family Practice 06/23/22 Maryan Rick DO [address] [place] [address] Referring Internal Medicine 07/06/21 Sejal Calvin, HAM DOCTOR.TOUR ACTOR [address] [place] [address] Referring Family Practice 12/04/21 Clinical Physician Assistant Relationship Specialty Start Date End Date Agustin Barahona, HAM DOCTOR.TOUR ACTOR [address] [facility] [address] [place] [address] PCP - General Family Medicine 06/23/22 Maryan Rick, DO [address] [place] [address] Referring Internal Medicine 07/06/21 Sejal Calvin, HAM DOCTOR.TOUR ACTOR [address] [place] [address] Referring Family Medicine 12/04/21 Clinical Physician Assistant Relationship Specialty Start Date End Date Agustin Barahona, HAM DOCTOR.TOUR ACTOR [address] [facility] [address] [place] [address] PCP - General Family Medicine 06/23/22 Maryan Rick DO [address] [place] [address] Referring Internal Medicine 07/06/21 Sejal Calvin, HAM DOCTOR.TOUR ACTOR [address] [place] [address] Referring Family Medicine 12/04/21 Clinical Physician Assistant Relationship Specialty Start Date End Date Agustin Barahona, HAM DOCTOR.TOUR ACTOR [address] [facility] [address] [place] [address] PCP - General Family Medicine 06/23/22 Maryan Rick, DO [address] [place] [address] Referring Internal Medicine 07/06/21 Sejal Calvin, HAM DOCTOR.TOUR ACTOR [address] [place] [address] Referring Family Medicine 12/04/21 Clinical Physician Assistant Relationship Specialty Start Date End Date Agustin Barahona, HAM DOCTOR.TOUR ACTOR [address] [facility] [address] [place] [address] PCP - General Family Medicine 06/23/22 Maryan Rick, DO [address] [place] [address] Referring Internal Medicine 07/06/21 Sejal Calvin, HAM DOCTOR.TOUR ACTOR [address] [place] [address] Referring Family Medicine 12/04/21 Clinical Physician Assistant Relationship Specialty Start Date End Date Agustin Barahona, HAM DOCTOR.TOUR ACTOR [address] [facility] [address] [place] [address] PCP - General Family Medicine 06/23/22 Maryan Rick DO [address] [place] [address] Referring Internal Medicine 07/06/21 Sejal Calvin, HAM DOCTOR.TOUR ACTOR [address] [place] [address] Referring Family Medicine 12/04/21 Clinical Physician Assistant Relationship Specialty Start Date End Date Agustin Barahona, HAM DOCTOR.TOUR ACTOR [address] [facility] [address] [place] [address] PCP - General Family Medicine 06/23/22 Maryan Rick, DO [address] [place] [address] Referring Internal Medicine 07/06/21 Sejal Calvin, HAM DOCTOR.TOUR ACTOR [address] [place] [address] Referring Family Medicine 12/04/21 Clinical Physician Assistant Relationship Specialty Start Date End Date Agustin Barahona, HAM DOCTOR.TOUR ACTOR [address] [facility] [address] [place] [address] PCP - General Family Medicine 06/23/22 Maryan Rick, DO [address] [address] [place] [address] Referring Internal Medicine 07/06/21 Sejal Calvin, HAM DOCTOR.TOUR ACTOR [address] [place] [address] Referring Family Medicine 12/04/21 Clinical Physician Assistant Relationship Specialty Start Date End Date Agustin Barahona, HAM DOCTOR.TOUR ACTOR [address] [facility] [address] [place] [address] PCP - General Family Medicine 06/23/22 Maryan Rick, DO [address] [place] [address] Referring Internal Medicine 07/06/21 Sejal Calvin, HAM DOCTOR.TOUR ACTOR [address] [place] [address] Referring Family Medicine 12/04/21 Clinical Physician Assistant Relationship Specialty Start Date End Date Agustin Barahona, HAM DOCTOR.TOUR ACTOR [address] [facility] [address] [place] [address] PCP - General Family Medicine 06/23/22 Maryan Rick, DO [address] [place] [address] Referring Internal Medicine 07/06/21 Sejal Calvin, HAM DOCTOR.TOUR ACTOR [address] [place] [address] Referring Family Medicine 12/04/21 Krupa Aparicio, RN [address] [place] [address] Primary Care Cadd Manager 08/28/22 11/26/22 Clinical Physician Assistant Relationship Specialty Start Date End Date Agustin Barahona, HAM DOCTOR.TOUR ACTOR 6 [facility] [address] [place] [address] PCP - General Family Medicine 06/23/22 Maryan Rick DO [address] [place] [address] [facility] [address] [place] [address] Referring Internal Medicine 07/06/21 Sejal Calvin, HAM DOCTOR.TOUR ACTOR [address] [place] [address] Referring Family Medicine 12/04/21 Krupa Aparicio RN [address] [place] [address] Primary Care Cadd Manager 08/28/22 11/26/22 Clinical Physician Assistant Relationship Specialty Start Date End Date Agustin Barahona, HAM DOCTOR.TOUR ACTOR [address] [facility] [address] [place] [address] PCP - General Family Medicine 06/23/22 Maryan Rick DO [address] [place] [address] [facility] [address] [place] [address] Referring Internal Medicine 07/06/21 Sejal Calvin, HAM DOCTOR.TOUR ACTOR [address] [place] [address] Referring Family Medicine 12/04/21 Krupa Aparicio, RN [address] [facility] [place] [address] Primary Care Cadd Manager 08/28/22 11/26/22 Clinical Physician Assistant Relationship Specialty Start Date End Date Agustin Barahona, HAM DOCTOR.TOUR ACTOR [address] [facility] [address] [place] [address] PCP - General Family Medicine 06/23/22 Maryan Rick, DO [address] [place] [address] [place] [address] [place] [address] Referring Internal Medicine 07/06/21 Sejal Calvin, HAM DOCTOR.TOUR ACTOR [address] [place] [address] Referring Family Medicine 12/04/21 Krupa Aparicio RN [address] [place], [place] [id number] Primary Care Cadd Manager 08/28/22 11/26/22 Clinical Physician Assistant Relationship Specialty Start Date End Date Agustin Barahona, HAM DOCTOR.TOUR ACTOR [address] [facility] [address] [place] [address] PCP - General Family Medicine 06/23/22 Maryan Rick DO [address] [place] [address] [facility] [address] [place] [address] Referring Internal Medicine 07/06/21 Sejal Calvin, HAM DOCTOR.TOUR ACTOR [address] [place] [address] Referring Family Medicine 12/04/21 Krupa Aparicio RN [address] [place], [place] [phone] Primary Care Cadd Manager 08/28/22 11/26/22 Clinical Physician Assistant Relationship Specialty Start Date End Date Agustin Barahona, HAM DOCTOR.TOUR ACTOR 1945 [facility] [place] [address] [place] [address] PCP - General Family Medicine 06/23/22 Maryan Rick DO [address] [address] [place] [address] [place] [address] Referring Internal Medicine 07/06/21 Sejal Calvin, HAM DOCTOR.TOUR ACTOR [address] [place] [address] Referring Family Medicine 12/04/21 Krupa Aparicio RN [address] [place], [place] [id number] Primary Care Cadd Manager 08/28/22 11/26/22 Clinical Physician Assistant Relationship Specialty Start Date End Date Agustin Barahona, HAM DOCTOR.TOUR ACTOR [address] [facility] [place] [address] [place] [address] PCP - General Family Medicine 06/23/22 Maryan Rick, DO [address] [place] [address] [place] [address] [place] [address] Referring Internal Medicine 07/06/21 Sejal Calvin, HAM DOCTOR.TOUR ACTOR [address] [place] [address] Referring Family Medicine 12/04/21 Krupa Aparicio, RN [address] [place] [address] Primary Care Cadd Manager 08/28/22 11/26/22 Clinical Physician Assistant Relationship Specialty Start Date End Date Agustin Barahona, HAM DOCTOR.TOUR ACTOR [address] [facility] [place] [address] [place] [address] PCP - General Family Medicine 06/23/22 Maryan Rick, DO [address] [place] [address] [place] [address] [place] [address] Referring Internal Medicine 07/06/21 Sejal Calvin, HAM DOCTOR.TOUR ACTOR [address] [place] [address] Referring Family Medicine 12/04/21 Krupa Aparicio RN [address] [facility], [place] [id number] Primary Care Cadd Manager 08/28/22 11/26/22 Clinical Physician Assistant Relationship Specialty Start Date End Date Agustin Barahona, HAM DOCTOR.TOUR ACTOR [address] [facility] [place] [address] [place] [address] PCP - General Family Medicine 06/23/22 Maryan Rick, DO [address] [place] [address] [place] [address] [place] [address] Referring Internal Medicine 07/06/21 Sejal Calvin, HAM DOCTOR.TOUR ACTOR [address] [place] [address] Referring Family Medicine 12/04/21 Krupa Aparicio RN [address] [facility], [place] [phone] Primary Care Cadd Manager 08/28/22 11/26/22 Clinical Physician Assistant Relationship Specialty Start Date End Date Agustin Barahona, HAM DOCTOR.TOUR ACTOR [address] [facility] [address] [place] [address] PCP - General Family Medicine 06/23/22 Maryan Rick, DO [address] [place] [address] [facility] [address] [place] [address] Referring Internal Medicine 07/06/21 Sejal Calvin, HAM DOCTOR.TOUR ACTOR [address] [place] [address] Referring Family Medicine 12/04/21 Krupa Aparicio RN [address] [facility], [place] [phone] Primary Care Cadd Manager 08/28/22 01/29/23 Clinical Physician Assistant Relationship Specialty Start Date End Date Agustin Barahona, HAM DOCTOR.TOUR ACTOR [address] [facility] [address] [place] [address] PCP - General Family Medicine 06/23/22 Maryan Rick DO [address] [place] [address] [place] [address] [place] [address] Referring Internal Medicine 07/06/21 Sejal Calvin, HAM DOCTOR.TOUR ACTOR [address] [place] [address] Referring Family Medicine 12/04/21 Krupa Aparicio RN [address] [place], [place] [phone] Primary Care Cadd Manager 08/28/22 01/29/23 Clinical Physician Assistant Relationship Specialty Start Date End Date Agustin Barahona, HAM DOCTOR.TOUR ACTOR [address] [facility] [place] [address] [place] [address] PCP - General Family Medicine 06/23/22 Maryan Rick DO [address] [place] [address] [facility] [address] [place] [address] Referring Internal Medicine 07/06/21 Sejal Calvin, HAM DOCTOR.TOUR ACTOR [address] [place] [address] Referring Family Medicine 12/04/21 Krupa Aparicio RN [address] [place] [address] Primary Care Cadd Manager 08/28/22 01/29/23 Clinical Physician Assistant Relationship Specialty Start Date End Date Agustin Barahona, HAM DOCTOR.TOUR ACTOR [address] [facility] [place] [address] [place] [address] PCP - General Family Medicine 06/23/22 Maryan Rick DO [address] [place] [address] [place] [address] [place] [address] Referring Internal Medicine 07/06/21 Sejal Calvin, HAM DOCTOR.TOUR ACTOR [address] [place] [address] Referring Family Medicine 12/04/21 Krupa Aparicio, RN [address] [place] [address] Primary Care Cadd Manager 08/28/22 01/29/23 Clinical Physician Assistant Relationship Specialty Start Date End Date Agustin Barahona, HAM DOCTOR.TOUR ACTOR [address] [facility] [place] [address] [place] [address] PCP - General Family Medicine 06/23/22 Maryan Rick DO [address] [place] [address] [place] [address] [place] [address] Referring Internal Medicine 07/06/21 Sejal Calvin, HAM DOCTOR.TOUR ACTOR [address] [place] [address] Referring Family Medicine 12/04/21 Krupa Aparicio RN [address] [place] [address] Primary Care Cadd Manager 08/28/22 01/29/23 Clinical Physician Assistant Relationship Specialty Start Date End Date Agustin Barahona, HAM DOCTOR.TOUR ACTOR [address] [facility] [place] [address] [place] [address] PCP - General Family Medicine 06/23/22 Maryan Rick, DO [address] [place] [address] [place] [address] [place] [address] Referring Internal Medicine 07/06/21 Sejal Calvin, HAM DOCTOR.TOUR ACTOR [address] [place] [address] Referring Family Medicine 12/04/21 Krupa Aparicio RN [address] [place] [address] Primary Care Cadd Manager 08/28/22 01/29/23 Clinical Physician Assistant Relationship Specialty Start Date End Date Agustin Barahona, HAM DOCTOR.TOUR ACTOR [address] [facility] [address] [place] [address] PCP - General Family Medicine 06/23/22 Maryan Rick, [address] [place] [address] [facility] [address] [place] [address] Referring Internal Medicine 07/06/21 Sejal Calvin, HAM DOCTOR.TOUR ACTOR [address] [place] [address] Referring Family Medicine 12/04/21 Krupa Aparicio, RN [address] [place], [place] [phone] Primary Care Cadd Manager 08/28/22 01/29/23 Clinical Physician Assistant Relationship Specialty Start Date End Date Agustin Barahona, HAM DOCTOR.TOUR ACTOR [address] [facility] [address] [place] [address] PCP - General Family Medicine 06/23/22 Maryan Rick, [address] [place] [address] [facility] [address] [place] [address] Referring Internal Medicine 07/06/21 Sejal Calvin, HAM DOCTOR.TOUR ACTOR [address] [place] [address] Referring Family Medicine 12/04/21 Krupa Aparicio RN [address] [place] [address] Primary Care Cadd Manager 08/28/22 01/29/23 Clinical Physician Assistant Relationship Specialty Start Date End Date Agustin Barahona, HAM DOCTOR.TOUR ACTOR [address] [facility] [address] [place] [address] PCP - General Family Medicine 06/23/22 Maryan Rick, [address] [place] [address] [facility] [address] [place], [place] [id number] Referring Internal Medicine 07/06/21 Susan Cuello, [facility] [address] [place] [address] Pharmacist Primary Care 08/05/21 07/05/22 Sejal Calvin, HAM DOCTOR.TOUR ACTOR [address] [place] [address] Referring Family Medicine 12/04/21 Krupa Aparicio, ROYCE [address] [place], [place] [phone] Primary Care Cadd Manager 08/28/22 01/29/23 Clinical Physician Assistant Relationship Specialty Start Date End Date Agustin Barahona, HAM DOCTOR.TOUR ACTOR [address] [facility] [place] [address] [place] [address] PCP - General Family Medicine 06/23/22 Maryan Rick DO [address] [place] [address] [facility] [address] [place] [address] Referring Internal Medicine 07/06/21 Sejal Calvin, HAM DOCTOR.TOUR ACTOR [address] [place] [address] Referring Family Medicine 12/04/21 Krupa Aparicio RN [address] [place] [address] Primary Care Cadd Manager 08/28/22 01/29/23 Clinical Physician Assistant Relationship Specialty Start Date End Date Agustin Barahona, HAM DOCTOR.TOUR ACTOR [address] [facility] [place] [address] [place] [address] PCP - General Family Medicine 06/23/22 Maryan Rick DO [address] [place] [address] [facility] [address] [place] [address] Referring Internal Medicine 07/06/21 Sejal Calvin, HAM DOCTOR.TOUR ACTOR [address] [place] [address] Referring Family Medicine 12/04/21 Krupa Aparicio RN [address] [place], [place] [phone] Primary Care Cadd Manager 08/28/22 01/29/23 Clinical Physician Assistant Relationship Specialty Start Date End Date Agustin Barahona, HAM DOCTOR.TOUR ACTOR [address] [facility] [address] [place] [address] PCP - General Family Medicine 06/23/22 Maryan Rick, DO [address] [place] [address] [place] [address] [place] [address] Referring Internal Medicine 07/06/21 Sejal Calvin, HAM DOCTOR.TOUR ACTOR [address] [place] [address] Referring Family Medicine 12/04/21 Krupa Aparicio RN [address] [place] [address] Primary Care Cadd Manager 08/28/22 01/29/23 Clinical Physician Assistant Relationship Specialty Start Date End Date Agustin Barahona, HAM DOCTOR.TOUR ACTOR [address] [facility] [address] [place] [address] PCP - General Family Medicine 06/23/22 Maryan Rick, DO [address] [place] [address] [place] [address] [place] [address] Referring Internal Medicine 07/06/21 Sejal Calvin, HAM DOCTOR.TOUR ACTOR [address] [place] [address] Referring Family Medicine 12/04/21 Krupa Aparicio RN [address] [place], [place] [phone] Primary Care Cadd Manager 08/28/22 01/29/23 Clinical Physician Assistant Relationship Specialty Start Date End Date Agustin Barahona, HAM DOCTOR.TOUR ACTOR [address] [facility] [address] [place] [address] PCP - General Family Medicine 06/23/22 Maryan Rick, DO 1 [facility] [address] [place], [place] [id number] Referring Internal Medicine 07/06/21 Sejal Calvin, HAM DOCTOR.TOUR ACTOR [address] [place] [address] Referring Family Medicine 12/04/21 Krupa Aparicio RN [address] [place], [place] [phone] Primary Care Cadd Manager 08/28/22 01/29/23 Clinical Physician Assistant Relationship Specialty Start Date End Date Lucy Quick MD [address] [address] PCP - General Internal Medicine 02/06/23 Clinical Physician Assistant Relationship Specialty Start Date End Date Lucy Quick MD [address] [facility] [address] [place] [address] PCP - General Internal Medicine 02/06/23 Clinical Physician Assistant Relationship Specialty Start Date End Date Lucy Quick MD [address] [facility] [address] [place] [address] PCP - General Internal Medicine 02/06/23 Clinical Physician Assistant Relationship Specialty Start Date End Date Lucy Quick MD [address] [facility] [address] [place] [address] PCP - General Internal Medicine 02/06/23 Clinical Physician Assistant Relationship Specialty Start Date End Date Lucy Quick MD [address] [place] [address] PCP - General Internal Medicine 02/06/23 Clinical Physician Assistant Relationship Specialty Start Date End Date Lucy Quick [address] [place] [id number] PCP - General Internal Medicine 02/21/24 Clinical Physician Assistant Relationship Specialty Start Date End Date BalbinaalistairLucy [address] [place] [phone] PCP - General Internal Medicine 02/21/24 Team Status: Inactive Member Role Status Dates Lucy SALGADO Attending Provider Active Sta rt: September 17, 2024 End: September 17, 2024 Lucy SALGADO Referring Provider Active Sta rt: September 17, 2024 End: September 17, 2024 Team Status: Inactive Member Role Status Dates Lucy SALGADO Attending Provider Active Sta rt: October 02, 2024 End: October 02, 2024 Team Status: Active Member Role Status Dates Lucy SALGADO Attending Provider Active Sta rt: October 09, 2024 Team Status: Inactive Member Role Status Dates Lucy SALGADO Attending Provider Active Sta rt: November 04, 2024 End: November 04, 2024 Team Status: Inactive Member Role Status Dates Lucy SALGADO Attending Provider Active Sta rt: December 19, 2024 End: December 19, 2024 Team Status: Inactive Member Role Status Dates Lucy SALGADO Attending Provider Active Sta rt: January 19, 2025 End: January 19, 2025 Team Status: Inactive Member Role Status Dates Lucy SALGADO Attending Provider Active Sta rt: February 12, 2025 End: February 12, 2025 Source Comments (unrecognize d section and content) In the event this informatio n is protected by the Federal Confidentiality of Alcohol and Drug Abuse Patient Records regulations: The Federal rules restrict any use of the information to criminally investigate or prosecute any alcohol or drug abuse patient.[facility] Center[facility] the event this information is protected by the Federal Confidentiality of Alcohol and Drug Abuse Patient Records regulations: The Federal rules restrict any use of the information to criminally investigate or prosecute any alcohol or drug abuse patient.[facility] CenterIn the event this information is protected by the Federal Confidentiality of Alcohol and Drug Abuse Patient Records regulations: The Federal rules restrict any use of the information to criminally investigate or prosecute any alcohol or drug abuse patient.[facility] CenterIn the event this information is protected by the Federal Confidentiality of Alcohol and Drug Abuse Patient Records regulations: The Federal rules restrict any use of the information to criminally investigate or prosecute any alcohol or drug abuse patient.[facility] CenterIn the event this information is protected by the Federal Confidentiality of Alcohol and Drug Abuse Patient Records regulations: The Federal rules restrict any use of the information to criminally investigate or prosecute any alcohol or drug abuse patient.[facility] CenterIn the event this information is protected by the Federal Confidentiality of Alcohol and Drug Abuse Patient Records regulations: The Federal rules restrict any use of the information to criminally investigate or prosecute any alcohol or drug abuse patient.[facility] CenterIn the event this information is protected by the Federal Confidentiality of Alcohol and Drug Abuse Patient Records regulations: The Federal rules restrict any use of the information to criminally investigate or prosecute any alcohol or drug abuse patient.[facility] CenterIn the event this information is protected by the Federal Confidentiality of Alcohol and Drug Abuse Patient Records regulations: The Federal rules restrict any use of the information to criminally investigate or prosecute any alcohol or drug abuse patient.[facility] CenterIn the event this information is protected by the Federal Confidentiality of Alcohol and Drug Abuse Patient Records regulations: The Federal rules restrict any use of the information to criminally investigate or prosecute any alcohol or drug abuse patient.[facility] CenterIn the event this information is protected by the Federal Confidentiality of Alcohol and Drug Abuse Patient Records regulations: The Federal rules restrict any use of the information to criminally investigate or prosecute any alcohol or drug abuse patient.[facility] CenterIn the event this information is protected by the Federal Confidentiality of Alcohol and Drug Abuse Patient Records regulations: The Federal rules restrict any use of the information to criminally investigate or prosecute any alcohol or drug abuse patient.[facility] CenterIn the event this information is protected by the Federal Confidentiality of Alcohol and Drug Abuse Patient Records regulations: The Federal rules restrict any use of the information to criminally investigate or prosecute any alcohol or drug abuse patient.[facility] CenterIn the event this information is protected by the Federal Confidentiality of Alcohol and Drug Abuse Patient Records regulations: The Federal rules restrict any use of the information to criminally investigate or prosecute any alcohol or drug abuse patient.[facility] CenterIn the event this information is protected by the Federal Confidentiality of Alcohol and Drug Abuse Patient Records regulations: The Federal rules restrict any use of the information to criminally investigate or prosecute any alcohol or drug abuse patient.[facility] CenterIn the event this information is protected by the Federal Confidentiality of Alcohol and Drug Abuse Patient Records regulations: The Federal rules restrict any use of the information to criminally investigate or prosecute any alcohol or drug abuse patient.[facility] CenterIn the event this information is protected by the Federal Confidentiality of Alcohol and Drug Abuse Patient Records regulations: The Federal rules restrict any use of the information to criminally investigate or prosecute any alcohol or drug abuse patient.[facility] CenterIn the event this information is protected by the Federal Confidentiality of Alcohol and Drug Abuse Patient Records regulations: The Federal rules restrict any use of the information to criminally investigate or prosecute any alcohol or drug abuse patient.[facility] CenterIn the event this information is protected by the Federal Confidentiality of Alcohol and Drug Abuse Patient Records regulations: The Federal rules restrict any use of the information to criminally investigate or prosecute any alcohol or drug abuse patient.[facility] CenterIn the event this information is protected by the Federal Confidentiality of Alcohol and Drug Abuse Patient Records regulations: The Federal rules restrict any use of the information to criminally investigate or prosecute any alcohol or drug abuse patient.[facility] CenterIn the event this information is protected by the Federal Confidentiality of Alcohol and Drug Abuse Patient Records regulations: The Federal rules restrict any use of the information to criminally investigate or prosecute any alcohol or drug abuse patient.[facility] CenterIn the event this information is protected by the Federal Confidentiality of Alcohol and Drug Abuse Patient Records regulations: The Federal rules restrict any use of the information to criminally investigate or prosecute any alcohol or drug abuse patient.[facility] CenterIn the event this information is protected by the Federal Confidentiality of Alcohol and Drug Abuse Patient Records regulations: The Federal rules restrict any use of the information to criminally investigate or prosecute any alcohol or drug abuse patient.[facility] CenterIn the event this information is protected by the Federal Confidentiality of Alcohol and Drug Abuse Patient Records regulations: The Federal rules restrict any use of the information to criminally investigate or prosecute any alcohol or drug abuse patient.[facility] CenterIn the event this information is protected by the Federal Confidentiality of Alcohol and Drug Abuse Patient Records regulations: The Federal rules restrict any use of the information to criminally investigate or prosecute any alcohol or drug abuse patient.[facility] CenterIn the event this information is protected by the Federal Confidentiality of Alcohol and Drug Abuse Patient Records regulations: The Federal rules restrict any use of the information to criminally investigate or prosecute any alcohol or drug abuse patient.[facility] CenterIn the event this information is protected by the Federal Confidentiality of Alcohol and Drug Abuse Patient Records regulations: The Federal rules restrict any use of the information to criminally investigate or prosecute any alcohol or drug abuse patient.[facility] CenterIn the event this information is protected by the Federal Confidentiality of Alcohol and Drug Abuse Patient Records regulations: The Federal rules restrict any use of the information to criminally investigate or prosecute any alcohol or drug abuse patient.[facility] CenterIn the event this information is protected by the Federal Confidentiality of Alcohol and Drug Abuse Patient Records regulations: The Federal rules restrict any use of the information to criminally investigate or prosecute any alcohol or drug abuse patient.[facility] CenterIn the event this information is protected by the Federal Confidentiality of Alcohol and Drug Abuse Patient Records regulations: The Federal rules restrict any use of the information to criminally investigate or prosecute any alcohol or drug abuse patient.[facility] CenterIn the event this information is protected by the Federal Confidentiality of Alcohol and Drug Abuse Patient Records regulations: The Federal rules restrict any use of the information to criminally investigate or prosecute any alcohol or drug abuse patient.[facility] CenterIn the event this information is protected by the Federal Confidentiality of Alcohol and Drug Abuse Patient Records regulations: The Federal rules restrict any use of the information to criminally investigate or prosecute any alcohol or drug abuse patient.[facility] CenterIn the event this information is protected by the Federal Confidentiality of Alcohol and Drug Abuse Patient Records regulations: The Federal rules restrict any use of the information to criminally investigate or prosecute any alcohol or drug abuse patient.[facility] CenterIn the event this information is protected by the Federal Confidentiality of Alcohol and Drug Abuse Patient Records regulations: The Federal rules restrict any use of the information to criminally investigate or prosecute any alcohol or drug abuse patient.[facility] CenterIn the event this information is protected by the Federal Confidentiality of Alcohol and Drug Abuse Patient Records regulations: The Federal rules restrict any use of the information to criminally investigate or prosecute any alcohol or drug abuse patient.[facility] CenterIn the event this information is protected by the Federal Confidentiality of Alcohol and Drug Abuse Patient Records regulations: The Federal rules restrict any use of the information to criminally investigate or prosecute any alcohol or drug abuse patient.[facility] ClinicIn the event this information is protected by the Federal Confidentiality of Alcohol and Drug Abuse Patient Records regulations: The Federal rules restrict any use of the information to criminally investigate or prosecute any alcohol or drug abuse patient.[facility] CenterIn the event this information is protected by the Federal Confidentiality of Alcohol and Drug Abuse Patient Records regulations: The Federal rules restrict any use of the information to criminally investigate or prosecute any alcohol or drug abuse patient.[facility] CenterIn the event this information is protected by the Federal Confidentiality of Alcohol and Drug Abuse Patient Records regulations: The Federal rules restrict any use of the information to criminally investigate or prosecute any alcohol or drug abuse patient.[facility] CenterIn the event this information is protected by the Federal Confidentiality of Alcohol and Drug Abuse Patient Records regulations: The Federal rules restrict any use of the information to criminally investigate or prosecute any alcohol or drug abuse patient.[facility] CenterIn the event this information is protected by the Federal Confidentiality of Alcohol and Drug Abuse Patient Records regulations: The Federal rules restrict any use of the information to criminally investigate or prosecute any alcohol or drug abuse patient.[facility] CenterIn the event this information is protected by the Federal Confidentiality of Alcohol and Drug Abuse Patient Records regulations: The Federal rules restrict any use of the information to criminally investigate or prosecute any alcohol or drug abuse patient.[facility] CenterIn the event this information is protected by the Federal Confidentiality of Alcohol and Drug Abuse Patient Records regulations: The Federal rules restrict any use of the information to criminally investigate or prosecute any alcohol or drug abuse patient.[facility] CenterIn the event this information is protected by the Federal Confidentiality of Alcohol and Drug Abuse Patient Records regulations: The Federal rules restrict any use of the information to criminally investigate or prosecute any alcohol or drug abuse patient.[facility] CenterIn the event this information is protected by the Federal Confidentiality of Alcohol and Drug Abuse Patient Records regulations: The Federal rules restrict any use of the information to criminally investigate or prosecute any alcohol or drug abuse patient.[facility] CenterIn the event this information is protected by the Federal Confidentiality of Alcohol and Drug Abuse Patient Records regulations: The Federal rules restrict any use of the information to criminally investigate or prosecute any alcohol or drug abuse patient.[facility] CenterIn the event this information is protected by the Federal Confidentiality of Alcohol and Drug Abuse Patient Records regulations: The Federal rules restrict any use of the information to criminally investigate or prosecute any alcohol or drug abuse patient.[facility] CenterIn the event this information is protected by the Federal Confidentiality of Alcohol and Drug Abuse Patient Records regulations: The Federal rules restrict any use of the information to criminally investigate or prosecute any alcohol or drug abuse patient.[facility] CenterIn the event this information is protected by the Federal Confidentiality of Alcohol and Drug Abuse Patient Records regulations: The Federal rules restrict any use of the information to criminally investigate or prosecute any alcohol or drug abuse patient.[facility] CenterIn the event this information is protected by the Federal Confidentiality of Alcohol and Drug Abuse Patient Records regulations: The Federal rules restrict any use of the information to criminally investigate or prosecute any alcohol or drug abuse patient.[facility] CenterIn the event this information is protected by the Federal Confidentiality of Alcohol and Drug Abuse Patient Records regulations: The Federal rules restrict any use of the information to criminally investigate or prosecute any alcohol or drug abuse patient.[facility] CenterIn the event this information is protected by the Federal Confidentiality of Alcohol and Drug Abuse Patient Records regulations: The Federal rules restrict any use of the information to criminally investigate or prosecute any alcohol or drug abuse patient.[facility] CenterIn the event this information is protected by the Federal Confidentiality of Alcohol and Drug Abuse Patient Records regulations: The Federal rules restrict any use of the information to criminally investigate or prosecute any alcohol or drug abuse patient.[facility] CenterIn the event this information is protected by the Federal Confidentiality of Alcohol and Drug Abuse Patient Records regulations: The Federal rules restrict any use of the information to criminally investigate or prosecute any alcohol or drug abuse patient.[facility] CenterIn the event this information is protected by the Federal Confidentiality of Alcohol and Drug Abuse Patient Records regulations: The Federal rules restrict any use of the information to criminally investigate or prosecute any alcohol or drug abuse patient.[facility] CenterIn the event this information is protected by the Federal Confidentiality of Alcohol and Drug Abuse Patient Records regulations: The Federal rules restrict any use of the information to criminally investigate or prosecute any alcohol or drug abuse patient.[facility] CenterIn the event this information is protected by the Federal Confidentiality of Alcohol and Drug Abuse Patient Records regulations: The Federal rules restrict any use of the information to criminally investigate or prosecute any alcohol or drug abuse patient.[facility] CenterIn the event this information is protected by the Federal Confidentiality of Alcohol and Drug Abuse Patient Records regulations: The Federal rules restrict any use of the information to criminally investigate or prosecute any alcohol or drug abuse patient.[facility] CenterIn the event this information is protected by the Federal Confidentiality of Alcohol and Drug Abuse Patient Records regulations: The Federal rules restrict any use of the information to criminally investigate or prosecute any alcohol or drug abuse patient.[facility] CenterIn the event this information is protected by the Federal Confidentiality of Alcohol and Drug Abuse Patient Records regulations: The Federal rules restrict any use of the information to criminally investigate or prosecute any alcohol or drug abuse patient.[facility] CenterIn the event this information is protected by the Federal Confidentiality of Alcohol and Drug Abuse Patient Records regulations: The Federal rules restrict any use of the information to criminally investigate or prosecute any alcohol or drug abuse patient.[facility] CenterIn the event this information is protected by the Federal Confidentiality of Alcohol and Drug Abuse Patient Records regulations: The Federal rules restrict any use of the information to criminally investigate or prosecute any alcohol or drug abuse patient.[facility] CenterIn the event this information is protected by the Federal Confidentiality of Alcohol and Drug Abuse Patient Records regulations: The Federal rules restrict any use of the information to criminally investigate or prosecute any alcohol or drug abuse patient.[facility] CenterIn the event this information is protected by the Federal Confidentiality of Alcohol and Drug Abuse Patient Records regulations: The Federal rules restrict any use of the information to criminally investigate or prosecute any alcohol or drug abuse patient.[facility] CenterIn the event this information is protected by the Federal Confidentiality of Alcohol and Drug Abuse Patient Records regulations: The Federal rules restrict any use of the information to criminally investigate or prosecute any alcohol or drug abuse patient.[facility] CenterIn the event this information is protected by the Federal Confidentiality of Alcohol and Drug Abuse Patient Records regulations: The Federal rules restrict any use of the information to criminally investigate or prosecute any alcohol or drug abuse patient.[facility] CenterIn the event this information is protected by the Federal Confidentiality of Alcohol and Drug Abuse Patient Records regulations: The Federal rules restrict any use of the information to criminally investigate or prosecute any alcohol or drug abuse patient.[facility] CenterIn the event this information is protected by the Federal Confidentiality of Alcohol and Drug Abuse Patient Records regulations: The Federal rules restrict any use of the information to criminally investigate or prosecute any alcohol or drug abuse patient.[facility] CenterIn the event this information is protected by the Federal Confidentiality of Alcohol and Drug Abuse Patient Records regulations: The Federal rules restrict any use of the information to criminally investigate or prosecute any alcohol or drug abuse patient.[facility] CenterIn the event this information is protected by the Federal Confidentiality of Alcohol and Drug Abuse Patient Records regulations: The Federal rules restrict any use of the information to criminally investigate or prosecute any alcohol or drug abuse patient.[facility] CenterIn the event this information is protected by the Federal Confidentiality of Alcohol and Drug Abuse Patient Records regulations: The Federal rules restrict any use of the information to criminally investigate or prosecute any alcohol or drug abuse patient.[facility] CenterIn the event this information is protected by the Federal Confidentiality of Alcohol and Drug Abuse Patient Records regulations: The Federal rules restrict any use of the information to criminally investigate or prosecute any alcohol or drug abuse patient.[facility] CenterIn the event this information is protected by the Federal Confidentiality of Alcohol and Drug Abuse Patient Records regulations: The Federal rules restrict any use of the information to criminally investigate or prosecute any alcohol or drug abuse patient.[facility] CenterIn the event this information is protected by the Federal Confidentiality of Alcohol and Drug Abuse Patient Records regulations: The Federal rules restrict any use of the information to criminally investigate or prosecute any alcohol or drug abuse patient.[facility] CenterIn the event this information is protected by the Federal Confidentiality of Alcohol and Drug Abuse Patient Records regulations: The Federal rules restrict any use of the information to criminally investigate or prosecute any alcohol or drug abuse patient.[facility] CenterIn the event this information is protected by the Federal Confidentiality of Alcohol and Drug Abuse Patient Records regulations: The Federal rules restrict any use of the information to criminally investigate or prosecute any alcohol or drug abuse patient.[facility] CenterIn the event this information is protected by the Federal Confidentiality of Alcohol and Drug Abuse Patient Records regulations: The Federal rules restrict any use of the information to criminally investigate or prosecute any alcohol or drug abuse patient.[facility] CenterIn the event this information is protected by the Federal Confidentiality of Alcohol and Drug Abuse Patient Records regulations: The Federal rules restrict any use of the information to criminally investigate or prosecute any alcohol or drug abuse patient.[facility] CenterIn the event this information is protected by the Federal Confidentiality of Alcohol and Drug Abuse Patient Records regulations: The Federal rules restrict any use of the information to criminally investigate or prosecute any alcohol or drug abuse patient.[facility] CenterIn the event this information is protected by the Federal Confidentiality of Alcohol and Drug Abuse Patient Records regulations: The Federal rules restrict any use of the information to criminally investigate or prosecute any alcohol or drug abuse patient.[facility] CenterIn the event this information is protected by the Federal Confidentiality of Alcohol and Drug Abuse Patient Records regulations: The Federal rules restrict any use of the information to criminally investigate or prosecute any alcohol or drug abuse patient.[facility] CenterIn the event this information is protected by the Federal Confidentiality of Alcohol and Drug Abuse Patient Records regulations: The Federal rules restrict any use of the information to criminally investigate or prosecute any alcohol or drug abuse patient.[facility] CenterIn the event this information is protected by the Federal Confidentiality of Alcohol and Drug Abuse Patient Records regulations: The Federal rules restrict any use of the information to criminally investigate or prosecute any alcohol or drug abuse patient.[facility] CenterIn the event this information is protected by the Federal Confidentiality of Alcohol and Drug Abuse Patient Records regulations: The Federal rules restrict any use of the information to criminally investigate or prosecute any alcohol or drug abuse patient.[facility] CenterIn the event this information is protected by the Federal Confidentiality of Alcohol and Drug Abuse Patient Records regulations: The Federal rules restrict any use of the information to criminally investigate or prosecute any alcohol or drug abuse patient.[facility] CenterIn the event this information is protected by the Federal Confidentiality of Alcohol and Drug Abuse Patient Records regulations: The Federal rules restrict any use of the information to criminally investigate or prosecute any alcohol or drug abuse patient.[facility]In the event this information is protected by the Federal Confidentiality of Alcohol and Drug Abuse Patient Records regulations: The Federal rules restrict any use of the information to criminally investigate or prosecute any alcohol or drug abuse patient.[facility] CenterIn the event this information is protected by the Federal Confidentiality of Alcohol and Drug Abuse Patient Records regulations: The Federal rules restrict any use of the information to criminally investigate or prosecute any alcohol or drug abuse patient.[facility] CenterIn the event this information is protected by the Federal Confidentiality of Alcohol and Drug Abuse Patient Records regulations: The Federal rules restrict any use of the information to criminally investigate or prosecute any alcohol or drug abuse patient.[facility] CenterIn the event this information is protected by the Federal Confidentiality of Alcohol and Drug Abuse Patient Records regulations: The Federal rules restrict any use of the information to criminally investigate or prosecute any alcohol or drug abuse patient.[facility] CenterIn the event this information is protected by the Federal Confidentiality of Alcohol and Drug Abuse Patient Records regulations: The Federal rules restrict any use of the information to criminally investigate or prosecute any alcohol or drug abuse patient.[facility] CenterIn the event this information is protected by the Federal Confidentiality of Alcohol and Drug Abuse Patient Records regulations: The Federal rules restrict any use of the information to criminally investigate or prosecute any alcohol or drug abuse patient.[facility] CenterIn the event this information is protected by the Federal Confidentiality of Alcohol and Drug Abuse Patient Records regulations: The Federal rules restrict any use of the information to criminally investigate or prosecute any alcohol or drug abuse patient.[facility] CenterIn the event this information is protected by the Federal Confidentiality of Alcohol and Drug Abuse Patient Records regulations: The Federal rules restrict any use of the information to criminally investigate or prosecute any alcohol or drug abuse patient.[facility] CenterIn the event this information is protected by the Federal Confidentiality of Alcohol and Drug Abuse Patient Records regulations: The Federal rules restrict any use of the information to criminally investigate or prosecute any alcohol or drug abuse patient.[facility] CenterIn the event this information is protected by the Federal Confidentiality of Alcohol and Drug Abuse Patient Records regulations: The Federal rules restrict any use of the information to criminally investigate or prosecute any alcohol or drug abuse patient.[facility]In the event this information is protected by the Federal Confidentiality of Alcohol and Drug Abuse Patient Records regulations: The Federal rules restrict any use of the information to criminally investigate or prosecute any alcohol or drug abuse patient.[facility] CenterIn the event this information is protected by the Federal Confidentiality of Alcohol and Drug Abuse Patient Records regulations: The Federal rules restrict any use of the information to criminally investigate or prosecute any alcohol or drug abuse patient.[facility]In the event this information is protected by the Federal Confidentiality of Alcohol and Drug Abuse Patient Records regulations: The Federal rules restrict any use of the information to criminally investigate or prosecute any alcohol or drug abuse patient.[facility] CenterIn the event this information is protected by the Federal Confidentiality of Alcohol and Drug Abuse Patient Records regulations: The Federal rules restrict any use of the information to criminally investigate or prosecute any alcohol or drug abuse patient.[facility] CenterIn the event this information is protected by the Federal Confidentiality of Alcohol and Drug Abuse Patient Records regulations: The Federal rules restrict any use of the information to criminally investigate or prosecute any alcohol or drug abuse patient.[facility] CenterIn the event this information is protected by the Federal Confidentiality of Alcohol and Drug Abuse Patient Records regulations: The Federal rules restrict any use of the information to criminally investigate or prosecute any alcohol or drug abuse patient.[facility] CenterIn the event this information is protected by the Federal Confidentiality of Alcohol and Drug Abuse Patient Records regulations: The Federal rules restrict any use of the information to criminally investigate or prosecute any alcohol or drug abuse patient.[facility] Goals (unrecognized section and content) Goals may be documented in a n alternate sectionGoals may be documented in an alternate sectionGoals may be documented in an alternate sectionGoals may be documented in an alternate sectionGoals may be documented in an alternate sectionGoals may be documented in an alternate sectionGoals may be documented in an alternate sectionGoals may be documented in an alternate sectionGoals may be documented in an alternate sectionGoals may be documented in an alternate sectionGoals may be documented in an alternate sectionGoals may be documented in an alternate sectionGoals may be documented in an alternate sectionGoals may be documented in an alternate sectionGoals may be documented in an alternate sectionGoals may be documented in an alternate sectionGoals may be documented in an alternate sectionGoals may be documented in an alternate sectionGoals may be documented in an alternate sectionGoals may be documented in an alternate sectionGoals may be documented in an alternate sectionGoals may be documented in an alternate sectionGoals may be documented in an alternate sectionGoals may be documented in an alternate sectionGoals may be documented in an alternate sectionGoals may be documented in an alternate sectionGoals may be documented in an alternate section FOR RECORDS PERTAINING TO PATIENTS WHO ARE OR HAVE BEEN ENROLLED IN A CHEMICAL DEPENDENCY/SUBSTANCEABUSE PROGRAM, SOME INFORMATION MAY BE OMITTED. This clinical summary was aggregated from multiple sources. Caution should be exercised in using it in the provision of clinical care. This summary normalizes information from multiple sources, and as a consequence, information in this document may materially change the coding, format and clinical context of patient data. In addition, data may be omitted in some cases. CLINICAL DECISIONS SHOULD BE BASED ON THE PRIMARY CLINICAL RECORDS. [facility]. provides no warranty or guarantee of the accuracy or completeness of information in this document.
--- OUTSIDE RECORDS SUMMARY | 2025-08-03 04:14 | XMS RPT_ITS | CCD ---
Author Organization [facility] Care Team Providers Care Workers' Compensation Claims Examiner Name Role Phone Moe Meyer MD Primary Care Provider Prabhjot RUIZ, Maryan J Unavailable [phone] [facility], Susan Unavailable Nikunj BUILDING INSPECTION ENGINEER.Sejal ROMERO Unavailable Moe Meyer MD Primary Care Provider Frankie Deng MD Primary Care Provider Frankie Deng MD Primary Care Provider Prabhjot RUIZ Maryan J Unavailable [facility], Susan Unavailable Nikunj BUILDING INSPECTION ENGINEER.Sejal ROMERO Unavailable [phone] Frankie Deng MD Primary Care Provider [phone] Jun BUILDING INSPECTION ENGINEER.Agustin ROMERO Primary Care Provider Nikunj MUNIZN.Sejal ROMERO Unavailable [phone] Jun BUILDING INSPECTION ENGINEER.Agustin ROMERO Primary Care Provider Markus CRANE, Krupa N Unavailable Prabhjot RUIZ, Maryan J Unavailable Nikunj BUILDING INSPECTION ENGINEER.Sejal ROMERO Unavailable Jun BUILDING INSPECTION ENGINEER.Agustin ROMERO Primary Care Provider Markus CRANE, Krupa N Unavailable [phone] MOE MEYER Referring Unavailable MOE MEYER [...] Unavailable RAWLEIGH, AGUSTIN A Attending Unavailable RAWLEIGH, AGUSTIN A Primary Care Unavailable ODILIA GAUTHIER Admitting [...] Care Unavailable Lucy Quick Primary Care Provider Lucy Quick Primary Care Provider LUCY QUICK [...] adverse reactions to drug 2 Itching, [facility] dulaglutide; Translations: [DULAGLUTIDE] Drug Allergy 2 GI Upset [facility] Work Phone: (20 sources) empagliflozin; Translations: [EMPAGLIFLOZIN] Drug Allergy 2 Other: See Comments [facility] Work Phone: (20 sources) HYDROmorphone; Translations: [HYDROMORPHONE (BULK)] Drug Allergy 2 Vomiting [facility] Work Phone: (4 sources) dulaglutide Drug Allergy 4 [facility] (4 sources) empagliflozin Drug Allergy 4 [facility] Connotate Medications Current Medications Medication Drug Class(es) Dates [...] Start: 07-19-2022 take 1 capsule by mo [facility] twice daily cephALEXin (KEFLEX) 500 mg capsule [...] ut twice daily. Take 1 capsule by [facility] four times daily for 14 days. Take 1 capsule by [facility] three times daily for 7 days. chlorhexidine [...] Comment on above: Take 1 capsule by [facility] twice daily for 7 days. petrolatum 0.996 [...] Comment on above: Take 4 tablets by [facility] once daily for 4 days, THEN 3 tablets once daily for 3 days, THEN 2 tablets once daily for 2 days, THEN 1 tablet once daily for 1 day. Take 3 tablets by [facility] once daily for 3 doses. Take 6 tablets by [facility] once daily for 7 days, THEN 5 [...] needed for pain. 20 ml albumin human, [facility] 250 mg/ml injection (2 sources) Human [...] to 3 mL/minute in patients with hypoproteinemia [id number] 200 actuat albuterol 0.09 mg/actuat metered dose [...] th every day Take 1 tablet by mac th daily at bedtime. bisacodyl 5 mg [...] Comment on above: Take 1 capsule by [facility] twice daily for 7 days. cefepime (MAXIPIME) [...] notify provider. Start: 04-30-2022 15 g, Oral, RI N, Starting on 04/30/22 at 2010, Until [...] DAY docusate sodium 50 mg / sennosides, [facility] 8.6 mg oral tablet (20 sources) [...] Active Start: 10-04-2021 take 2 tablets by [facility] once daily as needed for constipation 2 tablet, Oral, DAILY PRN, Constipation, Starting on Sun10/04/21 at 1024 Comment on above: Take 1 tablet by [facility] twice daily as needed for constipation. [...] 11/02/2022 End: 02-28-2024 take 1 capsule by [facility] twice daily doxycycline hyclate (DOXY-CAPS ORAL) Take 100 mg by mouth twice daily. 0 Suspended Comment on above: Take 1 capsule by [facility] twice daily for 7 days. Take 100 [...] once erg ocalciferol (Vitamin D-2) 1.25 MG (95595 UT) capsule Indications: Vitamin D Deficiency Take 1.25 mg by mouth 1 (one) time per week. Every 0 Active Comment on above: Take 1 capsule by mo [facility] one time a week. ertapenem (2 sources) [...] Chronic obstructive pulmonary disease, unspecified COPD type ([facility]) Inhale 1 Inhalation as instructed once daily. [...] Inhalation, 2 TIMES DAILY, First dose on [place] 04/30/22 at 2030, Until Discontinued Substituted for [...] heart failure with preserved ejection fraction (HFpEF) ([facility]) Take 2 tablets by mouth once daily. 90 tablet 1 06/23/2022 08/11/2022 Discontinued Start: 03-21-2022 End: 06-23-2022 take 1 tablet by mouth once daily furosemide (LASIX) 20 mg tablet Indications: Chronic heart failure with preserved ejection fraction (HFpEF) ([facility]) Take 1 tablet by mouth once daily. [...] mouth once daily. Take 1 tablet by [facility] once daily. Take 2 tablets by [facility] once daily. TAKE 2 TABLETS BY [facility] EVERY DAY Take 1 tablet by [facility] twice daily. Take 40 mg by [...] does not have IV access., Starting on [place] 10/02/21 at 0606 After administration, attempt intravenous [...] patient NOT ALERT or NPO., Starting on [facility] 03/06/24 at 0300, If patient does not [...] Blood sugar less than 70mg/dL, Starting on [facility] 03/06/24 at 0300, Start infusion following administration of dextrose 50% or glucagon. Start: 02-21-2024 End: 02-28-2024 12.5 g, IntraVENous, PRN, lo w blood sugar, Blood glucose less than 70 mg/dL and patient NOT ALERT or NPO., Starting on [facility] 02/21/24 at 2140, If patient does not [...] Blood sugar less than 70mg/dL, Starting on [facility] 02/21/24 at 2140, Start infusion following administration [...] minutes x2. Start: 10-02-2021 15 g, Oral, RI N, Low blood sugar, Starting on 10/02/21 [...] mac once daily. Take 1 tablet by [facility] every day Multivitamins-Minerals -Lutein (MULTIVITAMIN 50 PLUS) tab (7 sources) End: 02-27-2022 Onbtkvebjesnj-Ogszbler-Ein ein (MULTIVITAMIN 50 PLUS) tab Take 1 [...] sedation for opioid reversal - MUST notify health education coordinator provider immediately after first dose, may give [...] Comment on above: Take 1 capsule by [facility] once daily. pantoprazole 40 mg delayed release oral tablet (20 sources) Proton Pump Inhibitor Start: 10-02-2021 take 40 mg by mouth once daily before breakfast 40 mg, Oral, DAILY BEFORE BREAKFAST, First dose on Sun05/01/22 at 0700, Until Discontinued Do not crush or break. Substituted for Omeprazole (PRILOSEC). Comment on above: Take 40 mg by mouth once daily. polyethylene glycol 3350 16732 mg powder for oral solution (20 sources) [...] as needed (constipation). Take 1 Packet by [facility] once daily. Dissolve dose in 4 [...] Comment on above: Take 1 tablet by [facility] once daily. valACYclovir 500 mg oral [...] mL/hr, Administer over 120 Minutes, ONCE, On [place] 10/02/21 at 0100, For 1 dose Start: 10-02-2021 End: 10-02-2021 2,000 mg, IntraVENous, at 10 0 mL/hr, Administer over 30 Minutes, ONCE, On [place] 10/02/21 at 0100, For 1 dose (1 [...] Coronary arteriosclerosis; Translations: [Atherosclerotic heart disease of [place] coronary artery without angina pectoris] Onset: 05-01-2011 [...] (2 sources) Patient encounter status; Translations: [Other senior care (current) drug therapy] Episodic Other connective tissue [...] [Morbid obesity with BMI of 45.0-49.9, adult ([facility])] Onset: 11-10-2021 Chronic Other nutritional; endocrine; and [...] 12-19-2021 Episodic Other aftercare (1 source) Other senior care (current) drug therapy; Translations: [Other senior care (current) drug therapy] Onset: 10-31-2024 Episodic Other [...] )on 07-22-2025 BUN/CRE 29.6 RATIO High 10- [facility] Comment on above: Order Comment: 114.2 Performed By: #### L 100.0500, L500.2500 #### [facility] [address] [place], [address] Calcium [Mass/Vol] 9.2 mg/dL Normal 7.6-11.0 [facility] Comment on above: Order Comment: 114.2 Performed By: #### L 100.0500, L500.2500 #### [facility] [address] [place], [address] Chloride [Moles/Vol] 98 mmol/L Normal 98-108 [facility] Comment on above: Order Comment: 114.2 Performed By: #### L 100.0500, L500.2500 #### [facility] [address] [place], [address] CO2 [Moles/Vol] 28.7 mmol/L Normal 21.0-32.0 [facility] Comment on above: Order Comment: 114.2 Performed By: #### L 100.0500, L500.2500 #### [facility] [address] [place], [address] Creatinine [Mass/Vol] 1.26 mg/dL High 0.70-1.20 [facility] Comment on above: Order Comment: 114.2 Performed By: #### L 100.0500, L500.2500 #### [facility] [address] [place], [address] GAP 13 Normal 5-15 [facility] Comment on above: Order Comment: 114.2 Performed By: #### L 100.0500, L500.2500 #### [facility] [address] [place], [address] GFR/1.73 sq M.predicted among non-blacks MDRD (S/P/Bld) [Vol rate/Area] 47 mL/min/{1.73_m2} Low >60 [facility] Comment on above: Order Comment: 114.2 Result Comment: mL/m in/1.73m2 CKD-EPI Creatinine Equation (2020) Performed By: #### L 100.0500, L500.2500 #### [facility] [address] [place], [address] Glucose [Mass/Vol] 197 mg/dL High 70-99 [facility] Comment on above: Order Comment: 114.2 Performed By: #### L 100.0500, L500.2500 #### [facility] [address] [place], [address] Potassium [Moles/Vol] 4.1 mmol/L Normal 3.3-5.1 [facility] Comment on above: Order Comment: 114.2 Performed By: #### L 100.0500, L500.2500 #### [facility] [address] [place], [address] Sodium [Moles/Vol] 139 mmol/L Normal 133-145 [facility] Comment on above: Order Comment: 114.2 Performed By: #### L 100.0500, L500.2500 #### [facility] [address] [place], [address] Urea nitrogen [Mass/Vol] 37 mg/dL High 4-19 [facility] Comment on above: Order Comment: 114.2 Performed By: #### L 100.0500, L500.2500 #### [facility] [address] [place], [address] CBC-Complete Blood Cnt No Di ffon 07-22-2025 Erythrocyte distribution width (RBC) [Ratio] 13.2 % Normal 11.6-14.6 [facility] Comment on above: Order Comment: 114.2 Performed By: #### L 100.0500, L500.2500 #### [facility] [address] [place], [address] Hematocrit (Bld) [Volume fraction] 42.0 % Normal 37-47 [facility] Comment on above: Order Comment: 114.2 Performed By: #### L 100.0500, L500.2500 #### [facility] [address] [place], [address] Hemoglobin (Bld) [Mass/Vol] 13.5 g/dL Normal 12.0-15.0 [facility] Comment on above: Order Comment: 114.2 Performed By: #### L 100.0500, L500.2500 #### [facility] [address] [place], [address] MCH (RBC) [Entitic mass] 32.5 pg High 27.0-32.0 [facility] Comment on above: Order Comment: 114.2 Performed By: #### L 100.0500, L500.2500 #### [facility] [address] [place], [address] MCHC (RBC) [Mass/Vol] 32.1 g/dL Normal 32-36 [facility] Comment on above: Order Comment: 114.2 Performed By: #### L 100.0500, L500.2500 #### [facility] [address] [place], [address] MCV (RBC) [Entitic vol] 101.2 fL High 81-99 [facility] Comment on above: Order Comment: 114.2 Performed By: #### L 100.0500, L500.2500 #### [facility] [address] [place], [address] Platelet mean volume (Bld) [Entitic vol] 9.0 fL Normal 6.2-12.0 [facility] Comment on above: Order Comment: 114.2 Performed By: #### L 100.0500, L500.2500 #### [facility] [address] [place], [address] Platelets (Bld) [#/Vol] 262 10*3/uL Normal 150-450 [facility] Comment on above: Order Comment: 114.2 Performed By: #### L 100.0500, L500.2500 #### [facility] [address] [place], [address] RBC (Bld) [#/Vol] 4.15 10*6/uL Low 4.2-5.4 [facility] Comment on above: Order Comment: 114.2 Performed By: #### L 100.0500, L500.2500 #### [facility] [address] [place], [address] RDW SD 49.1 fl High 35.1-43.9 [facility] Comment on above: Order Comment: 114.2 Performed By: #### L 100.0500, L500.2500 #### [facility] [address] [place], [address] WBC (Bld) [#/Vol] 9.9 10*3/uL Normal 4.4-11.0 [facility] Comment on above: Order Comment: 114.2 Performed By: #### L 100.0500, L500.2500 #### [facility] [address] [place], [address] Basic Metabolic Profile (BMP )on 07-06-2025 BUN/CRE 36.0 RATIO High 10-20 [facility] Comment on above: Order Comment: 114.2 Performed By: #### L 100.0500, L500.2500 #### [facility] [address] [place], [address] Calcium [Mass/Vol] 9.0 mg/dL Normal 7.6-11.0 [facility] Comment on above: Order Comment: 114.2 Performed By: #### L 100.0500, L500.2500 #### [facility] [address] [place], [address] Chloride [Moles/Vol] 95 mmol/L Low 98-108 [facility] Comment on above: Order Comment: 114.2 Performed By: #### L 100.0500, L500.2500 #### [facility] [address] [place], [address] CO2 [Moles/Vol] 27.2 mmol/L Normal 21.0-32.0 [facility] Comment on above: Order Comment: 114.2 Performed By: #### L 100.0500, L500.2500 #### [facility] [address] [place], [address] Creatinine [Mass/Vol] 1.25 mg/dL High 0.70-1.20 [facility] Comment on above: Order Comment: 114.2 Performed By: #### L 100.0500, L500.2500 #### [facility] [address] [place], [address] GAP 15 Normal 5-15 [facility] Comment on above: Order Comment: 114.2 Performed By: #### L 100.0500, L500.2500 #### [facility] [address] [place], [address] GFR/1.73 sq M.predicted among non-blacks MDRD (S/P/Bld) [Vol rate/Area] 47 mL/min/{1.73_m2} Low >60 [facility] Comment on above: Order Comment: 114.2 Result Comment: mL/m in/1.73m2 CKD-EPI Creatinine Equation (2020) Performed By: #### L 100.0500, L500.2500 #### [facility] [address] [place], [address] Glucose [Mass/Vol] 248 mg/dL High 70-99 [facility] Comment on above: Order Comment: 114.2 Performed By: #### L 100.0500, L500.2500 #### [facility] [address] [place], [address] Potassium [Moles/Vol] 4.2 mmol/L Normal 3.3-5.1 [facility] Comment on above: Order Comment: 114.2 Performed By: #### L 100.0500, L500.2500 #### [facility] [address] [place], [address] Sodium [Moles/Vol] 138 mmol/L Normal 133-145 [facility] Comment on above: Order Comment: 114.2 Performed By: #### L 100.0500, L500.2500 #### [facility] [address] [place], [address] Urea nitrogen [Mass/Vol] 45 mg/dL High 4-19 [facility] Comment on above: Order Comment: 114.2 Performed By: #### L 100.0500, L500.2500 #### [facility] [address] [place], [address] CBC-Complete Blood Cnt No Di ffon 07-06-2025 Erythrocyte distribution width (RBC) [Ratio] 12.6 % Normal 11.6-14.6 [facility] Comment on above: Order Comment: 114.2 Performed By: #### L 100.0500, L500.2500 #### [facility] [address] [place], [address] Hematocrit (Bld) [Volume fraction] 33.7 % Low 37-47 [facility] Comment on above: Order Comment: 114.2 Performed By: #### L 100.0500, L500.2500 #### [facility] [address] [place], [address] Hemoglobin (Bld) [Mass/Vol] 10.8 g/dL Low 12.0-15.0 [facility] Comment on above: Order Comment: 114.2 Performed By: #### L 100.0500, L500.2500 #### [facility] [address] [place], [address] MCH (RBC) [Entitic mass] 32.1 pg High 27.0-32.0 [facility] Comment on above: Order Comment: 114.2 Performed By: #### L 100.0500, L500.2500 #### [facility] [address] [place], [address] MCHC (RBC) [Mass/Vol] 32.0 g/dL Normal 32-36 [facility] Comment on above: Order Comment: 114.2 Performed By: #### L 100.0500, L500.2500 #### [facility] [address] [place], [address] MCV (RBC) [Entitic vol] 100.3 fL High 81-99 [facility] Comment on above: Order Comment: 114.2 Performed By: #### L 100.0500, L500.2500 #### [facility] [address] [place], [address] Platelet mean volume (Bld) [Entitic vol] 9.3 fL Normal 6.2-12.0 [facility] Comment on above: Order Comment: 114.2 Performed By: #### L 100.0500, L500.2500 #### [facility] [address] [place], [address] Platelets (Bld) [#/Vol] 239 10*3/uL Normal 150-450 [facility] Comment on above: Order Comment: 114.2 Performed By: #### L 100.0500, L500.2500 #### [facility] [address] [place], [address] RBC (Bld) [#/Vol] 3.36 10*6/uL Low 4.2-5.4 [facility] Comment on above: Order Comment: 114.2 Performed By: #### L 100.0500, L500.2500 #### [facility] [address] [place], [address] RDW SD 46.5 fl High 35.1-43.9 [facility] Comment on above: Order Comment: 114.2 Performed By: #### L 100.0500, L500.2500 #### [facility] [address] [place], [address] WBC (Bld) [#/Vol] 9.3 10*3/uL Normal 4.4-11.0 [facility] Comment on above: Order Comment: 114.2 Performed By: #### L 100.0500, L500.2500 #### [facility] [address] [place], [address] Hemoglobin A1con 07-06-2025 HbA1c (Bld) [Mass fraction] 8.5 % High <=5.6 [facility] Comment on above: Order Comment: 114.2 Result Comment: Norm al < 5.7 % Prediabetic 5.7 - 6.4 % Diabetic >or= 6.5 % Please note range changes. Performed By: #### L 100.0500, L500.2500 #### [facility] [address] [place], [address] Urine Cultureon 05-12-2025 [facility] Urine Culture Copy of report sent to Infection Control Printer [id number] 05/11/25 7097 ASNIPES. Urine Culture Urine Culture Urine Culture Urine Culture Providencia stuartii [place] Count 50,000-80,000 Escherichia coli Escherichia coli VREFAC Beta Lactamase-Reportable Negative Vancomycin Resist. E. faecilis SSCI [place] Count 11,000-25,000 PMIR [place] Count 11,000-25,000 Staphylococcus sciuri Ampicillin Islt ASHU [...] TMP SMX Islt ASHU >=[address] [facility] Comment on above: Performed By: #### L 400.0001, M100.0 #### [facility] [address] [place], [address] Urinalysis, Completeon 05-05 EPI,SQUAMOUS 5-10 SEEN Normal 5-10 [facility] Comment on above: Order Comment: SC CATHETER SPECIMEN Performed By: #### L 400.0001, M100.2200 #### [facility] [address] [place], [address] WBC 0-5 SEEN Normal 0-5 [facility] Comment on above: Order Comment: SC CATHETER SPECIMEN Performed By: #### L 400.0001, M100.2200 #### [facility] [address] [place], [address] BACTERIA 0 SEEN Normal None Seen [facility] Comment on above: Order Comment: SC CATHETER SPECIMEN Performed By: #### L 400.0001, M100.2200 #### [facility] [address] [place], [address] Mucus Ql (Urine sed) 0 SEEN Normal [facility] Comment on above: Order Comment: SC CATHETER SPECIMEN Performed By: #### L 400.0001, M100.2200 #### [facility] [address] [place], [address] RBC 0 SEEN Normal 0-5 [facility] Comment on above: Order Comment: SC CATHETER SPECIMEN Performed By: #### L 400.0001, M100.2200 #### [facility] [address] [place], [address] Basic Metabolic Profile (BMP )on 04-21-2025 BUN/CRE 25.2 RATIO High 10-20 [facility] Comment on above: Order Comment: 114.2 Performed By: #### L 100.0500, L500.2500 #### [facility] [address] [place], [address] Calcium [Mass/Vol] 8.9 mg/dL Normal 7.6-11.0 [facility] Comment on above: Order Comment: 114.2 Performed By: #### L 100.0500, L500.2500 #### [facility] [address] [place], [address] Chloride [Moles/Vol] 99 mmol/L Normal 98-108 [facility] Comment on above: Order Comment: 114.2 Performed By: #### L 100.0500, L500.2500 #### [facility] [address] [place], [address] CO2 [Moles/Vol] 30.9 mmol/L Normal 21.0-32.0 [facility] Comment on above: Order Comment: 114.2 Performed By: #### L 100.0500, L500.2500 #### [facility] [address] [place], [address] Creatinine [Mass/Vol] 1.29 mg/dL High 0.70-1.20 [facility] Comment on above: Order Comment: 114.2 Performed By: #### L 100.0500, L500.2500 #### [facility] [address] [place], [address] GAP 10 Normal 5-15 [facility] Comment on above: Order Comment: 114.2 Performed By: #### L 100.0500, L500.2500 #### [facility] [address] [place], [address] GFR/1.73 sq M.predicted among non-blacks MDRD (S/P/Bld) [Vol rate/Area] 45 mL/min/{1.73_m2} Low >60 [facility] Comment on above: Order Comment: 114.2 Result Comment: mL/m in/1.73m2 CKD-EPI Creatinine Equation (2020) Performed By: #### L 100.0500, L500.2500 #### [facility] [facility] [address] [place], [address] Glucose [Mass/Vol] 115 mg/dL High 70-99 [facility] Comment on above: Order Comment: 114.2 Performed By: #### L 100.0500, L500.2500 #### [facility] [address] [place], [address] Potassium [Moles/Vol] 3.9 mmol/L Normal 3.3-5.1 [facility] Comment on above: Order Comment: 114.2 Performed By: #### L 100.0500, L500.2500 #### [facility] [address] [place], [address] Sodium [Moles/Vol] 139 mmol/L Normal 133-145 [facility] Comment on above: Order Comment: 114.2 Performed By: #### L 100.0500, L500.2500 #### [facility] [address] [place], [address] Urea nitrogen [Mass/Vol] 33 mg/dL High 4-19 [facility] Comment on above: Order Comment: 114.2 Performed By: #### L 100.0500, L500.2500 #### [facility] [address] [place], [address] CBC-Complete Blood Cnt No Di ffon 04-21-2025 Erythrocyte distribution width (RBC) [Ratio] 12.8 % Normal 11.6-14.6 [facility] Comment on above: Order Comment: 114.2 Performed By: #### L 100.0500, L500.2500 #### [facility] [address] [place], [address] Hematocrit (Bld) [Volume fraction] 32.4 % Low 37-47 [facility] Comment on above: Order Comment: 114.2 Performed By: #### L 100.0500, L500.2500 #### [facility] [address] [place], [address] Hemoglobin (Bld) [Mass/Vol] 10.5 g/dL Low 12.0-15.0 [facility] Comment on above: Order Comment: 114.2 Performed By: #### L 100.0500, L500.2500 #### [facility] [address] [place], [address] MCH (RBC) [Entitic mass] 32.1 pg High 27.0-32.0 [facility] Comment on above: Order Comment: 114.2 Performed By: #### L 100.0500, L500.2500 #### [facility] [address] [place], [address] MCHC (RBC) [Mass/Vol] 32.4 g/dL Normal 32-36 [facility] Comment on above: Order Comment: 114.2 Performed By: #### L 100.0500, L500.2500 #### [facility] [address] [place], [address] MCV (RBC) [Entitic vol] 99.1 fL High 81-99 [facility] Comment on above: Order Comment: 114.2 Performed By: #### L 100.0500, L500.2500 #### [facility] [address] [place], [address] Platelet mean volume (Bld) [Entitic vol] 8.9 fL Normal 6.2-12.0 [facility] Comment on above: Order Comment: 114.2 Performed By: #### L 100.0500, L500.2500 #### [facility] [address] [place], [address] Platelets (Bld) [#/Vol] 251 10*3/uL Normal 150-450 [facility] Comment on above: Order Comment: 114.2 Performed By: #### L 100.0500, L500.2500 #### [facility] [address] [place], [address] RBC (Bld) [#/Vol] 3.27 10*6/uL Low 4.2-5.4 [facility] Comment on above: Order Comment: 114.2 Performed By: #### L 100.0500, L500.2500 #### [facility] [address] [place], [address] RDW SD 46.6 fl High 35.1-43.9 [facility] Comment on above: Order Comment: 114.2 Performed By: #### L 100.0500, L500.2500 #### [facility] [address] [place], [address] WBC (Bld) [#/Vol] 7.6 10*3/uL Normal 4.4-11.0 [facility] Comment on above: Order Comment: 114.2 Performed By: #### L 100.0500, L500.2500 #### [facility] [address] [place], [address] CBC-Complete Blood Cnt No Di ffon 04-02-2025 Erythrocyte distribution width (RBC) [Ratio] 13.2 % Normal 11.6-14.6 [facility] Comment on above: Order Comment: 114.2 Performed By: #### L 100.0500, L500.2500 #### [facility] [address] [place], [address] Hematocrit (Bld) [Volume fraction] 33.9 % Low 37-47 [facility] Comment on above: Order Comment: 114.2 Performed By: #### L 100.0500, L500.2500 #### [facility] [address] [place], [address] Hemoglobin (Bld) [Mass/Vol] 10.6 g/dL Low 12.0-15.0 [facility] Comment on above: Order Comment: 114.2 Performed By: #### L 100.0500, L500.2500 #### [facility] [address] [place], [address] MCH (RBC) [Entitic mass] 31.8 pg Normal 27.0-32.0 [facility] Comment on above: Order Comment: 114.2 Performed By: #### L 100.0500, L500.2500 #### [facility] [address] [place], [address] MCHC (RBC) [Mass/Vol] 31.3 g/dL Low 32-36 [facility] Comment on above: Order Comment: 114.2 Performed By: #### L 100.0500, L500.2500 #### [facility] [address] [place], [address] MCV (RBC) [Entitic vol] 101.8 fL High 81-99 [facility] Comment on above: Order Comment: 114.2 Performed By: #### L 100.0500, L500.2500 #### [facility] [address] [place], [address] Platelet mean volume (Bld) [Entitic vol] 8.7 fL Normal 6.2-12.0 [facility] Comment on above: Order Comment: 114.2 Performed By: #### L 100.0500, L500.2500 #### [facility] [address] [place], [address] Platelets (Bld) [#/Vol] 223 10*3/uL Normal 150-450 [facility] Comment on above: Order Comment: 114.2 Performed By: #### L 100.0500, L500.2500 #### [facility] [address] [place], [address] RBC (Bld) [#/Vol] 3.33 10*6/uL Low 4.2-5.4 [facility] Comment on above: Order Comment: 114.2 Performed By: #### L 100.0500, L500.2500 #### [facility] [address] [place], [address] RDW SD 49.4 fl High 35.1-43.9 [facility] Comment on above: Order Comment: 114.2 Performed By: #### L 100.0500, L500.2500 #### [facility] [address] [place], [address] WBC (Bld) [#/Vol] 7.4 10*3/uL Normal 4.4-11.0 [facility] Comment on above: Order Comment: 114.2 Performed By: #### L 100.0500, L500.2500 #### [facility] [address] [place], [address] Comprehensive Metabolic Prof ilon 04-02-2025 Albumin [Mass/Vol] 2.7 g/dL Low 3.4-4.8 [facility] Comment on above: Order Comment: 114.2 Performed By: #### L 100.0500, L500.2500 #### [facility] [address] [place], [address] Albumin/Globulin [Mass ratio] 1.1 {ratio} Normal 0.9-2.4 [facility] Comment on above: Order Comment: 114.2 Performed By: #### L 100.0500, L500.2500 #### [facility] [address] [place], [address] ALK PHOS 75 U/L Normal 35-104 [facility] Comment on above: Order Comment: 114.2 Performed By: #### L 100.0500, L500.2500 #### [facility] [address] [place], [address] ALT [Catalytic activity/Vol] 13 U/L Normal <=34 [facility] Comment on above: Order Comment: 114.2 Performed By: #### L 100.0500, L500.2500 #### [facility] [address] [place], [address] AST [Catalytic activity/Vol] 15 U/L Normal <=31 [facility] Comment on above: Order Comment: 114.2 Performed By: #### L 100.0500, L500.2500 #### [facility] [address] [place], [address] Bilirubin [Mass/Vol] 0.22 mg/dL Normal 0.00-1.30 [facility] Comment on above: Order Comment: 114.2 Performed By: #### L 100.0500, L500.2500 #### [facility] [address] [place], [address] BUN/CRE 27.4 RATIO High 10-20 [facility] Comment on above: Order Comment: 114.2 Performed By: #### L 100.0500, L500.2500 #### [facility] [address] [place], [address] Calcium [Mass/Vol] 8.4 mg/dL Normal 7.6-11.0 [facility] Comment on above: Order Comment: 114.2 Performed By: #### L 100.0500, L500.2500 #### [facility] [address] [place], [address] Chloride [Moles/Vol] 104 mmol/L Normal 98-108 [facility] Comment on above: Order Comment: 114.2 Performed By: #### L 100.0500, L500.2500 #### [facility] [address] [place], [address] CO2 [Moles/Vol] 25.4 mmol/L Normal 21.0-32.0 [facility] Comment on above: Order Comment: 114.2 Performed By: #### L 100.0500, L500.2500 #### [facility] [address] [place], [address] Creatinine [Mass/Vol] 1.21 mg/dL High 0.70-1.20 [facility] Comment on above: Order Comment: 114.2 Performed By: #### L 100.0500, L500.2500 #### [facility] [address] [place], [address] GAP 10 Normal 5-15 [facility] Comment on above: Order Comment: 114.2 Performed By: #### L 100.0500, L500.2500 #### [facility] [address] [place], [address] GFR/1.73 sq M.predicted among non-blacks MDRD (S/P/Bld) [Vol rate/Area] 49 mL/min/{1.73_m2} Low >60 [facility] Comment on above: Order Comment: 114.2 Result Comment: mL/m in/1.73m2 CKD-EPI Creatinine Equation (2020) Performed By: #### L 100.0500, L500.2500 #### [facility] [address] [place], [address] Globulin (S) [Mass/Vol] 2.4 g/dL Normal 2.2-4.2 [facility] Comment on above: Order Comment: 114.2 Performed By: #### L 100.0500, L500.2500 #### [facility] [address] [place], [address] Glucose [Mass/Vol] 168 mg/dL High 70-99 [facility] Comment on above: Order Comment: 114.2 Performed By: #### L 100.0500, L500.2500 #### [facility] [address] [place], [address] Potassium [Moles/Vol] 4.1 mmol/L Normal 3.3-5.1 [facility] Comment on above: Order Comment: 114.2 Performed By: #### L 100.0500, L500.2500 #### [facility] [address] [place], [address] Sodium [Moles/Vol] 140 mmol/L Normal 133-145 [facility] Comment on above: Order Comment: 114.2 Performed By: #### L 100.0500, L500.2500 #### [facility] [address] [place], [address] T PROT 5.1 g/dL Low 5.9-8.4 [facility] Comment on above: Order Comment: 114.2 Performed By: #### L 100.0500, L500.2500 #### [facility] [address] [place], [address] Urea nitrogen [Mass/Vol] 33 mg/dL High 4-19 [facility] Comment on above: Order Comment: 114.2 Performed By: #### L 100.0500, L500.2500 #### [facility] [address] [place], [address] Hemoglobin A1con 04-02-2025 HbA1c (Bld) [Mass fraction] 8.6 % High <=5.6 [facility] Comment on above: Order Comment: 114.2 Result Comment: Norm al < 5.7 % Prediabetic 5.7 - 6.4 % Diabetic >or= 6.5 % Please note range changes. Performed By: #### L 100.0500, L500.2500 #### [facility] [address] [place], [address] Lipid Profileon 04-02-2025 CHOL:HDL 4.[address] [facility] Comment on above: Order Comment: 114.2 Performed By: #### L 100.0500, L500.2500 #### [facility] [address] [place], [address] Cholesterol [Mass/Vol] 163 mg/dL Normal <=200 [facility] Comment on above: Order Comment: 114.2 Result Comment: Chol esterol level, Desirable <200 mg/dL Borderline high cholesterol 200-239 mg/dL High cholesterol >=240 mg/dL Recommendations of the NCEP Adult Treatment Panel for the following risk-cutoff thresholds for the [place] population. Performed By: #### L 100.0500, L500.2500 #### [facility] [address] [place], [address] Cholesterol in HDL [Mass/Vol] 36 mg/dL Low [facility] Comment on above: Order Comment: 114.2 Result Comment: Jackeline onal Cholesterol Education Program (NCEP) guidelines: <40 mg/dL: Low HDL-cholesterol (major risk factor for CHD) >= 60 mg/dL: High HDL-cholesterol (negative risk factor for CHD) HDL-cholesterol is affected by a number of factors, e.g. smoking, exercise, hormones, sex and age. Performed By: #### L 100.0500, L500.2500 #### [facility] [address] [place], [address] Cholesterol in LDL [Mass/Vol] 81 mg/dL Normal [facility] Comment on above: Order Comment: 114.2 Result Comment: Bord sdbmuv=126-197 mg/dL Higher Guwm=382 mg/dL or greater Performed By: #### L 100.0500, L500.2500 #### [facility] [address] [place], [address] Cholesterol in VLDL [Mass/Vol] 46 mg/dL High 5-40 [facility] Comment on above: Order Comment: 114.2 Performed By: #### L 100.0500, L500.2500 #### [facility] [address] [place], [address] Triglyceride [Mass/Vol] 230 mg/dL High [facility] Comment on above: Order Comment: 114.2 Result Comment: The drugs N-Acetylcysteine and Metamizole may falsely depress this assay. Normal range: <150 mg/dL Borderline High: 150-199 mg/dL High: 200-499 mg/dL Very High: >500 mg/dL Performed By: #### L 100.0500, L500.2500 #### [facility] [address] [place], [address] Hemoglobin A1con 02-12-2025 HbA1c (Bld) [Mass fraction] 7.9 % High <=5.6 [facility] Comment on above: Order Comment: 114.2 Result Comment: Norm al < 5.7 % Prediabetic 5.7 - 6.4 % Diabetic >or= 6.5 % Please note range changes. Performed By: #### L 100.0500, L500.2500 #### [facility] [address] [place], [address] Hemoglobin A1c percentageOrd ered By: Lucy Quick on 02-12-2025 HbA1c (Bld) [Mass fraction] 7.9 % High <5.7 [facility] Comment on above: Normal < 5.7 % Predi abetic 5.7 - 6.4 % Diabetic >or= 6.5 % Please note range changes. Anion gap in Serum or Plasma Ordered By: Lucy Quick on 01-19-2025 Anion gap [Moles/Vol] 11 mmol/L - [facility] BUN/creatinine ratioOrdered By: Lucy Quick on 01-19-2025 Urea nitrogen/Creatinine [Mass ratio] 26.4 mg/mg High 08-17 [facility] Basic Metabolic Profile (BMP )on 01-19-2025 BUN/CRE 26.4 RATIO High 08-17 [facility] Comment on above: Order Comment: 114.2 Performed By: #### L 100.0500, L500.2500 #### [facility] [address] [place], [address] Calcium [Mass/Vol] 9.1 mg/dL Normal 7.6-11.0 [facility] Comment on above: Order Comment: 114.2 Performed By: #### L 100.0500, L500.2500 #### [facility] [address] [place], [address] Chloride [Moles/Vol] 99 mmol/L Normal 98-108 [facility] Comment on above: Order Comment: 114.2 Performed By: #### L 100.0500, L500.2500 #### [facility] [address] [place], [address] CO2 [Moles/Vol] 28.1 mmol/L Normal 21.0-32.0 [facility] Comment on above: Order Comment: 114.2 Performed By: #### L 100.0500, L500.2500 #### [facility] [address] [place], [address] Creatinine [Mass/Vol] 1.49 mg/dL High 0.70-1.20 [facility] Comment on above: Order Comment: 114.2 Performed By: #### L 100.0500, L500.2500 #### [facility] [address] [place], [address] GAP 11 Normal - [facility] Comment on above: Order Comment: 114.2 Performed By: #### L 100.0500, L500.2500 #### [facility] [address] [place], [address] GFR/1.73 sq M.predicted among non-blacks MDRD (S/P/Bld) [Vol rate/Area] 38 mL/min/{1.73_m2} Low >60 [facility] Comment on above: Order Comment: 114.2 Result Comment: mL/m in/1.73m2 CKD-EPI Creatinine Equation (2020) Performed By: #### L 100.0500, L500.2500 #### [facility] [address] [place], [address] Glucose [Mass/Vol] 110 mg/dL High 70-99 [facility] Comment on above: Order Comment: 114.2 Performed By: #### L 100.0500, L500.2500 #### [facility] [address] [place], [address] Potassium [Moles/Vol] 4.2 mmol/L Normal 3.3-5.1 [facility] Comment on above: Order Comment: 114.2 Performed By: #### L 100.0500, L500.2500 #### [facility] [address] [place], [address] Sodium [Moles/Vol] 139 mmol/L Normal 133-145 [facility] Comment on above: Order Comment: 114.2 Performed By: #### L 100.0500, L500.2500 #### [facility] [address] [place], [address] Urea nitrogen [Mass/Vol] 39 mg/dL High 4-19 [facility] Comment on above: Order Comment: 114.2 Performed By: #### L 100.0500, L500.2500 #### [facility] [address] [place], [address] CBC-Complete Blood Cnt No Di ffon 01-19-2025 Erythrocyte distribution width (RBC) [Ratio] 12.4 % Normal 11.6-14.6 [facility] Comment on above: Order Comment: 114.2 Performed By: #### L 100.0500, L500.2500 #### [facility] [address] [place], [address] Hematocrit (Bld) [Volume fraction] 35.9 % Low 37-47 [facility] Comment on above: Order Comment: 114.2 Performed By: #### L 100.0500, L500.2500 #### [facility] [address] [place], [address] Hemoglobin (Bld) [Mass/Vol] 11.4 g/dL Low 12.0-15.0 [facility] Comment on above: Order Comment: 114.2 Performed By: #### L 100.0500, L500.2500 #### [facility] [address] [place], [address] MCH (RBC) [Entitic mass] 31.8 pg Normal 27.0-32.0 [facility] Comment on above: Order Comment: 114.2 Performed By: #### L 100.0500, L500.2500 #### [facility] [address] [place], [address] MCHC (RBC) [Mass/Vol] 31.8 g/dL Low 32-36 [facility] Comment on above: Order Comment: 114.2 Performed By: #### L 100.0500, L500.2500 #### [facility] [address] [place], [address] MCV (RBC) [Entitic vol] 100.3 fL High 81-99 [facility] Comment on above: Order Comment: 114.2 Performed By: #### L 100.0500, L500.2500 #### [facility] [address] [place], [address] Platelet mean volume (Bld) [Entitic vol] 9.0 fL Normal 6.2-12.0 [facility] Comment on above: Order Comment: 114.2 Performed By: #### L 100.0500, L500.2500 #### [facility] [address] [place], [address] Platelets (Bld) [#/Vol] 232 10*3/uL Normal 150-450 [facility] Comment on above: Order Comment: 114.2 Performed By: #### L 100.0500, L500.2500 #### [facility] [address] [place], [address] RBC (Bld) [#/Vol] 3.58 10*6/uL Low 4.2-5.4 [facility] Comment on above: Order Comment: 114.2 Performed By: #### L 100.0500, L500.2500 #### [facility] [address] [place], [address] RDW SD 45.8 fl High 35.1-43.9 [facility] Comment on above: Order Comment: 114.2 Performed By: #### L 100.0500, L500.2500 #### [facility] [address] [place], [address] WBC (Bld) [#/Vol] 8.4 10*3/uL Normal 4.4-11.0 [facility] Comment on above: Order Comment: 114.2 Performed By: #### L 100.0500, L500.2500 #### [facility] [address] [place], [address] Carbon dioxide, total [Moles /volume] in Central venous bloodOrdered By: Lucy Quick on 01-19-2025 CO2 [Moles/Vol] 28.1 mmol/L 21.0-32.0 [facility] Chloride assayOrdered By: Jemal Campos on 01-19-2025 Chloride [Moles/Vol] 99 mmol/L 98-108 [facility] Erythrocyte distribution wid th (RBC) [Ratio]Ordered By: Lucy Quick on 01-19-2025 Erythrocyte distribution width (RBC) [Entitic vol] 45.8 fL High 35.1-43.9 [facility] Erythrocyte distribution wid th ratioOrdered By: Lucy Quick on 01-19-2025 Erythrocyte distribution width (RBC) [Ratio] 12.4 % 11.6-14.6 [facility] Erythrocyte distribution wid th standard deviationOrdered By: Lucy Quick on 01-19-2025 Erythrocyte distribution width (RBC) [Ratio] 45.8 fl High 35.1-43.9 [facility] GFR/1.73 sq M.predicted mahogany g non-blacks MDRD (S/P/Bld) [Vol rate/Area]Ordered By: Lucy Quick on 01-19-2025 Estimated GFR (MDRD) Non-Af Amer 38 Low >60 [facility] Comment on above: mL/min/1.73m2 CKD-EP I Creatinine Equation (2020) Glomerular filtration rate ( GFR) estimation/1.73 sq m using serum, plasma, or whole bOrdered By: Lucy Quick on 01-19-2025 GFR/1.73 sq M.predicted among non-blacks MDRD (S/P/Bld) [Vol rate/Area] 38 mL/min/{1.73_m2} Low >60 [facility] Comment on above: mL/min/1.73m2 CKD-EP I Creatinine Equation (2020) Hematocrit Auto (Bld) [Volum e fraction]Ordered By: Lucy Quick on 01-19-2025 Hematocrit (Bld) [Volume fraction] 35.9 % Low 37-47 [facility] Hemoglobin measurementOrdere d By: Lucy Quick on 01-19-2025 Hemoglobin (Bld) [Mass/Vol] 11.4 g/dL Low 12.0-15.0 [facility] MCV (mean corpuscular volume ) determinationOrdered By: Lucy Quick on 01-19-2025 MCV (RBC) [Entitic vol] 100.3 fL High 81-99 [facility] Mean corpuscular hemoglobin (MCH) determinationOrdered By: Lucy Quick on 01-19-2025 MCH (RBC) [Entitic mass] 31.8 pg 27.0-32.0 [facility] Mean corpuscular hemoglobin concentration (MCHC) determinationOrdered By: Lucy Quick on 01-19-2025 MCHC (RBC) [Mass/Vol] 31.8 g/dL Low 32-36 [facility] Mean platelet volume determi nationOrdered By: Lucy Quick on 01-19-2025 Platelet mean volume (Bld) [Entitic vol] 9.0 fL 6.2-12.0 [facility] Platelet countOrdered By: Jemal Campos on 01-19-2025 Platelets (Bld) [#/Vol] 232 10*3/uL 150-450 [facility] [facility] Potassium (Unsp spec) [Mass/ Vol]Ordered By: Lucy Quick on 01-19-2025 Potassium [Moles/Vol] 4.2 mmol/L 3.3-5.1 [facility] Potassium measurement (mass/ volume)Ordered By: Lucy Quick on 01-19-2025 Potassium (Unsp spec) [Mass/Vol] 4.2 mmol/L 3.3-5.1 [facility] RBC Auto (Bld) [#/Vol]Ordere d By: Lucy Quick on 01-19-2025 RBC (Bld) [#/Vol] 3.58 10*6/uL Low 4.2-5.4 [facility] Serum creatinine measurement (mass/volume)Ordered By: Lucy Qiuck on 01-19-2025 Creatinine [Mass/Vol] 1.49 mg/dL High 0.70-1.20 [facility] Serum glucose measurement (m ass/volume)Ordered By: Lucy Quick on 01-19-2025 Glucose [Mass/Vol] 110 mg/dL High 70-99 [facility] Serum or plasma calcium catracho urement (mass/volume)Ordered By: Lucy Quick on 01-19-2025 Calcium [Mass/Vol] 9.1 mg/dL 7.6-11.0 [facility] Serum or plasma urea nitroge n measurement (mass/volume)Ordered By: Lucy Quick on 01-19-2025 Urea nitrogen [Mass/Vol] 39 mg/dL High 4-19 [facility] Sodium levelOrdered By: Alfonso Quick on 01-19-2025 Sodium [Moles/Vol] 139 mmol/L 133-145 [facility] White blood cell (WBC) count Ordered By: Lucy Quick on 01-19-2025 WBC (Bld) [#/Vol] 8.4 10*3/uL 4.4-11.0 [facility] Basic Metabolic Profile (BMP )on 01-16-2025 BUN Normal 02-14 [facility] Comment on above: Order Comment: 114-2 Result Comment: UTO Performed By: #### L 400.0001, M1.0 #### [facility] [address] [place], [address] BUN/CRE Normal - [facility] Comment on above: Order Comment: 114-2 Result Comment: UTO Performed By: #### L 400.0001, #### [facility] [address] [place], [address] Calcium Normal 7.6-11.0 [facility] Comment on above: Order Comment: 114-2 Result Comment: UTO Performed By: #### L 400.0001, .2199 #### [facility] [address] [place], [address] CL Normal 98-108 [facility] Comment on above: Order Comment: 114-2 Result Comment: UTO Performed By: #### L 400.0001, #### [facility] [address] [place], [address] CO2 Normal 21.0-32.0 [facility] Comment on above: Order Comment: 114-2 Result Comment: UTO Performed By: #### L 400.0001, M1.0 #### [facility] [address] [place], [address] CREAT,SERUM Normal 0.70-1.20 [facility] Comment on above: Order Comment: 114-2 Result Comment: UTO Performed By: #### L 400.0001, M100.2200 #### [facility] [address] [place], [address] eGFR Normal >60 [facility] Comment on above: Order Comment: 114-2 Result Comment: UTO Performed By: #### L 400.0001, M100.2200 #### [facility] [address] [place], [address] GAP Normal 5-15 [facility] Comment on above: Order Comment: 114-2 Result Comment: UTO Performed By: #### L 400.0001, M100.2200 #### [facility] [address] [place], [address] GLU Normal 70-99 [facility] Comment on above: Order Comment: 114-2 Result Comment: UTO Performed By: #### L 400.0001, M100.0 #### [facility] [address] [place], [address] Potassium Normal 3.3-5.1 [facility] Comment on above: Order Comment: 114-2 Result Comment: UTO Performed By: #### L 400.0001, M100.2200 #### [facility] [address] [place], [address] Basic Metabolic Profile (BMP) Normal 133-145 [facility] Comment on above: Order Comment: 114-2 Result Comment: UTO Performed By: #### L 400.0001, M100.2200 #### [facility] [address] [place], [address] CBC-Complete Blood Cnt No Di ffon 01-16-2025 HCT Normal 37-47 [facility] Comment on above: Order Comment: 114.2 Result Comment: UTO Performed By: #### L 100.0500, L500.2500 #### [facility] [address] [place], [address] HGB Normal 12.0-15.0 [facility] Comment on above: Order Comment: 114.2 Result Comment: UTO Performed By: #### L 100.0500, L500.2500 #### [facility] [address] [place], [address] MCH Normal 27.0-32.0 [facility] Comment on above: Order Comment: 114.2 Result Comment: UTO Performed By: #### L 100.0500, L500.2500 #### [facility] [address] [place], [address] MCHC Normal 32-36 [facility] Comment on above: Order Comment: 114.2 Result Comment: UTO Performed By: #### L 100.0500, L500.2500 #### [facility] [address] [place], [address] MCV Normal 81-99 [facility] Comment on above: Order Comment: 114.2 Result Comment: UTO Performed By: #### L 100.0500, L500.2500 #### [facility] [address] [place], [address] PLT Normal 150-450 [facility] Comment on above: Order Comment: 114.2 Result Comment: UTO Performed By: #### L 100.0500, L500.2500 #### [facility] [address] [place], [address] RBC Normal 4.2-5.4 [facility] Comment on above: Order Comment: 114.2 Result Comment: UTO Performed By: #### L 100.0500, L500.2500 #### [facility] [address] [place], [address] RDW CV Normal 11.6-14.6 [facility] Comment on above: Order Comment: 114.2 Result Comment: UTO Performed By: #### L 100.0500, L500.2500 #### [facility] [address] [place], [address] RDW SD Normal 35.1-43.9 [facility] Comment on above: Order Comment: 114.2 Result Comment: UTO Performed By: #### L 100.0500, L500.2500 #### [facility] [address] [place], [address] WBC Normal 4.4-11.0 [facility] Comment on above: Order Comment: 114.2 Result Comment: UTO Performed By: #### L 100.0500, L500.2500 #### [facility] [address] [place], [address] Basic Metabolic Profile (BMP )on 12-19-2024 BUN/CRE 26.7 RATIO High 10-20 [facility] Comment on above: Order Comment: 114-2 Performed By: #### L 400.0001, #### [facility] [address] [place], [address] CA,Total 9.4 mg/dL Normal 8.5-10.1 [facility] Comment on above: Order Comment: 114-2 Performed By: #### L 400.0001, #### [facility] [address] [place], [address] Chloride [Moles/Vol] 100 mmol/L Normal 98-107 [facility] Comment on above: Order Comment: 114-2 Performed By: #### L 400.0001, M1.2199 #### [facility] [address] [place], [address] CO2 [Moles/Vol] 33.0 mmol/L High 21.0-32.0 [facility] Comment on above: Order Comment: 114-2 Performed By: #### L 400.0001, M1.2199 #### [facility] [address] [place], [address] Creatinine [Mass/Vol] 1.46 mg/dL High 0.55-1.02 [facility] Comment on above: Order Comment: 114-2 Result Comment: The validity of the calculated GFR GFRAA in patients over 70 years has not been determined. Clinical correlation is essential. Performed By: #### L 400.0001, .0 #### [facility] [address] [place], [address] EST GFR - AA 46 mL/min Low >60 [facility] Comment on above: Order Comment: 114-2 Result Comment: Afri can Dominican GFR Calc Performed By: #### L 400.0001, #### [facility] [address] [place], [address] GAP 5 Normal 5-15 [facility] Comment on above: Order Comment: 114-2 Performed By: #### L 400.0001, #### [facility] [address] [place], [address] GFR/1.73 sq M.predicted among non-blacks MDRD (S/P/Bld) [Vol rate/Area] 38 mL/min/{1.73_m2} Low >60 [facility] Comment on above: Order Comment: 114-2 Result Comment: Non- GFR Calc Performed By: #### L 400.0001, #### [facility] [address] [place], [address] Glucose [Mass/Vol] 178 mg/dL High 74-106 [facility] Comment on above: Order Comment: 114-2 Result Comment: Fast ing Glucose result greater than or equal to 126 mg/dL suggests DIABETES MELLITUS per A.D.A. criteria. Performed By: #### L 400.0001, M1.0 #### [facility] [address] [place], [address] Potassium [Moles/Vol] 4.1 mmol/L Normal 3.5-5.1 [facility] Comment on above: Order Comment: 114-2 Performed By: #### L 400.0001, #### [facility] [address] [place], [address] Sodium [Moles/Vol] 138 mmol/L Normal 136-145 [facility] Comment on above: Order Comment: 114-2 Performed By: #### L 400.0001, #### [facility] [address] [place], [address] Urea nitrogen [Mass/Vol] 39 mg/dL High 7-18 [facility] Comment on above: Order Comment: 114-2 Performed By: #### L 400.0001, #### [facility] [address] [place], [address] Blood urea nitrogen (BUN)/cr eatinine ratioOrdered By: Lucy Quick on 12-19-2024 Urea nitrogen/Creatinine [Mass ratio] 26.7 mg/mg High 10-20 [facility] CBC-Complete Blood Cnt No Di ffon 12-19-2024 Erythrocyte distribution width (RBC) [Ratio] 12.4 % Normal 11.6-14.6 [facility] Comment on above: Order Comment: 114-2 Performed By: #### L 400.0001, #### [facility] [address] [place], [address] Hematocrit (Bld) [Volume fraction] 33.1 % Low 37-47 [facility] Comment on above: Order Comment: 114-2 Performed By: #### L 400.0001, #### [facility] [address] [place], [address] Hemoglobin (Bld) [Mass/Vol] 10.4 g/dL Low 12.0-15.0 [facility] Comment on above: Order Comment: 114-2 Performed By: #### L 400.0001, #### [facility] [address] [place], [address] MCH (RBC) [Entitic mass] 31.3 pg Normal 27.0-32.0 [facility] Comment on above: Order Comment: 114-2 Performed By: #### L 400.0001, #### [facility] [address] [place], [address] MCHC (RBC) [Mass/Vol] 31.4 g/dL Low 32-36 [facility] Comment on above: Order Comment: 114-2 Performed By: #### L 400.0001, #### [facility] [address] [place], [address] MCV (RBC) [Entitic vol] 99.7 fL High 81-99 [facility] Comment on above: Order Comment: 114-2 Performed By: #### L 400.0001, #### [facility] [address] [place], [address] Platelet mean volume (Bld) [Entitic vol] 8.7 fL Normal 6.2-12.0 [facility] Comment on above: Order Comment: 114-2 Performed By: #### L 400.0001, #### [facility] [address] [place], [address] Platelets (Bld) [#/Vol] 215 10*3/uL Normal 150-450 [facility] Comment on above: Order Comment: 114-2 Performed By: #### L 400.0001, #### [facility] [address] [place], [address] RBC (Bld) [#/Vol] 3.32 10*6/uL Low 4.2-5.4 [facility] Comment on above: Order Comment: 114-2 Performed By: #### L 400.0001, M100.2200 #### [facility] [address] [place], [address] RDW SD 44.6 fl High 35.1-43.9 [facility] Comment on above: Order Comment: 114-2 Performed By: #### L 400.0001, M100.2200 #### [facility] [address] [place], [address] WBC (Bld) [#/Vol] 9.0 10*3/uL Normal 4.4-11.0 [facility] Comment on above: Order Comment: 114-2 Performed By: #### L 400.0001, M100.2200 #### [facility] [address] [place], [address] Carbon dioxide measurementOr dered By: Lucy Quick on 12-19-2024 CO2 [Moles/Vol] 33.0 mmol/L High 21.0-32.0 [facility] Chloride measurementOrdered By: Lucy Quick on 12-19-2024 Chloride [Moles/Vol] 100 mmol/L 98-107 [facility] Erythrocyte distribution wid th ratioOrdered By: Lucy Quick on 12-19-2024 Erythrocyte distribution width (RBC) [Ratio] 12.4 % 11.6-14.6 [facility] Erythrocyte distribution wid th standard deviationOrdered By: Lucy Quick on 12-19-2024 Erythrocyte distribution width (RBC) [Entitic vol] 44.6 fL High 35.1-43.9 [facility] Erythrocyte distribution width (RBC) [Ratio] 44.6 fl High 35.1-43.9 [facility] Estimated glomerular filtrat ion rate (GFR) AmericanOrdered By: Lucy Quick on 12-19-2024 Estimated GFR (MDRD) Amer 46 mL/min Low >60 [facility] Comment on above: GFR Calc Glomerular filtration rate ( GFR) estimationOrdered By: Lucy Quick on 12-19-2024 Estimated GFR (MDRD) Non-Af Amer 38 mL/min Low >60 [facility] Comment on above: Non- GFR Calc GFR/1.73 sq M.predicted among non-blacks MDRD (S/P/Bld) [Vol rate/Area] 38 mL/min/{1.73_m2} Low >60 [facility] Comment on above: Non- GFR Calc Glucose measurementOrdered B y: Lucy Quick on 12-19-2024 Glucose [Mass/Vol] 178 mg/dL High 74-106 [facility] Comment on above: Fasting Glucose resu lt greater than or equal to 126 mg/dL suggests DIABETES MELLITUS per A.D.A. criteria. Hematocrit Auto (Bld) [Volum e fraction]Ordered By: Lucy Quick on 12-19-2024 Hematocrit (Bld) [Volume fraction] 33.1 % Low 37-47 [facility] Hemoglobin measurementOrdere d By: Lucy Quick on 12-19-2024 Hemoglobin (Bld) [Mass/Vol] 10.4 g/dL Low 12.0-15.0 [facility] MCV (mean corpuscular volume ) determinationOrdered By: Lucy Quick on 12-19-2024 MCV (RBC) [Entitic vol] 99.7 fL High 81-99 [facility] Mean corpuscular hemoglobin (MCH) determinationOrdered By: Lucy Quick on 12-19-2024 MCH (RBC) [Entitic mass] 31.3 pg 27.0-32.0 [facility] Mean corpuscular hemoglobin concentration (MCHC) determinationOrdered By: Lucy Quick on 12-19-2024 MCHC (RBC) [Mass/Vol] 31.4 g/dL Low 32-36 [facility] Mean platelet volume determi nationOrdered By: Lucy Quick on 12-19-2024 Platelet mean volume (Bld) [Entitic vol] 8.7 fL 6.2-12.0 [facility] Platelet countOrdered By: Jemal Campos on 12-19-2024 Platelets (Bld) [#/Vol] 215 10*3/uL 150-450 [facility] Potassium measurementOrdered By: Lucy Quick on 12-19-2024 Potassium [Moles/Vol] 4.1 mmol/L 3.5-5.1 [facility] RBC Auto (Bld) [#/Vol]Ordere d By: Lucy Quick on 12-19-2024 RBC (Bld) [#/Vol] 3.32 10*6/uL Low 4.2-5.4 [facility] Serum anion gap measurementO rdered By: Lucy Quick on 12-19-2024 Anion gap [Moles/Vol] 5 mmol/L 5-15 [facility] Serum or plasma calcium catracho urement (mass/volume)Ordered By: Lucy Quick on 12-19-2024 Calcium [Mass/Vol] 9.4 mg/dL 8.5-10.1 [facility] Serum or plasma creatinine m easurement (mass/volume)Ordered By: Lucy Quick on 12-19-2024 Creatinine [Mass/Vol] 1.46 mg/dL High 0.55-1.02 [facility] Comment on above: The validity of the calculated GFR & GFRAA in patients over 70 years has not been determined. Clinical correlation is essential. Serum or plasma urea nitroge n measurement (mass/volume)Ordered By: Lucy Quick on 12-19-2024 Urea nitrogen [Mass/Vol] 39 mg/dL High 05-15 [facility] Sodium levelOrdered By: Alfonso Quick on 12-19-2024 Sodium [Moles/Vol] 138 mmol/L 136-145 [facility] White blood cell (WBC) count Ordered By: Lucy Quick on 12-19-2024 WBC (Bld) [#/Vol] 9.0 10*3/uL 4.4-11.0 [facility] Basic Metabolic Profile (BMP )on 12-18-2024 BUN Normal 05-15 [facility] Comment on above: Order Comment: 114.2 Result Comment: BRENDON ENT REFUSED Performed By: #### L 400.0001, M100.2200 #### [facility] [address] [place], [address] BUN/CRE Normal 08-17 [facility] Comment on above: Order Comment: 114.2 Result Comment: BRENDON ENT REFUSED Performed By: #### L 400.0001, M100.2200 #### [facility] [address] [place], [address] CA,Total Normal 8.5-10.1 [facility] Comment on above: Order Comment: 114.2 Result Comment: BRENDON ENT REFUSED Performed By: #### L 400.0001, #### [facility] [address] [place], [address] CL Normal 98-107 [facility] Comment on above: Order Comment: 114.2 Result Comment: BRENDON ENT REFUSED Performed By: #### L 400.0001, #### [facility] [address] [place], [address] CO2 Normal 21.0-32.0 [facility] Comment on above: Order Comment: 114.2 Result Comment: BRENDON ENT REFUSED Performed By: #### L 400.0001, #### [facility] [address] [place], [address] CREAT,SERUM Normal 0.55-1.02 [facility] Comment on above: Order Comment: 114.2 Result Comment: BRENDON ENT REFUSED Performed By: #### L 400.0001, #### [facility] [address] [place], [address] EST GFR Normal >60 [facility] Comment on above: Order Comment: 114.2 Result Comment: BRENDON ENT REFUSED Performed By: #### L 400.0001, #### [facility] [address] [place], [address] EST GFR - AA Normal >60 [facility] Comment on above: Order Comment: 114.2 Result Comment: BRENDON ENT REFUSED Performed By: #### L 400.0001, #### [facility] [address] [place], [address] GAP Normal 5-15 [facility] Comment on above: Order Comment: 114.2 Result Comment: BRENDON ENT REFUSED Performed By: #### L 400.0001, .2199 #### [facility] [address] [place], [address] GLU Normal 74-106 [facility] Comment on above: Order Comment: 114.2 Result Comment: BRENDON ENT REFUSED Performed By: #### L 400.0001, .2199 #### [facility] [address] [place], [address] Potassium Normal 3.5-5.1 [facility] Comment on above: Order Comment: 114.2 Result Comment: BRENDON ENT REFUSED Performed By: #### L 400.0001, .2199 #### [facility] [address] [place], [address] Basic Metabolic Profile (BMP) Normal 136-145 [facility] Comment on above: Order Comment: 114.2 Result Comment: BRENDON ENT REFUSED Performed By: #### L 400.0001, .2199 #### [facility] [address] [place], [address] CBC-Complete Blood Cnt No Di ffon 12-18-2024 HCT Normal 37-47 [facility] Comment on above: Order Comment: 114.2 Result Comment: BRENDON ENT REFUSED Performed By: #### L 400.0001, #### [facility] [address] [place], [address] HGB Normal 12.0-15.0 [facility] Comment on above: Order Comment: 114.2 Result Comment: BRENDON ENT REFUSED Performed By: #### L 400.0001, .2199 #### [facility] [address] [place], [address] MCH Normal 27.0-32.0 [facility] Comment on above: Order Comment: 114.2 Result Comment: BRENDON ENT REFUSED Performed By: #### L 400.0001, #### [facility] [address] [place], [address] MCHC Normal 32-36 [facility] Comment on above: Order Comment: 114.2 Result Comment: BRENDON ENT REFUSED Performed By: #### L 400.0001, .0 #### [facility] [address] [place], [address] MCV Normal 81-99 [facility] Comment on above: Order Comment: 114.2 Result Comment: BRENDON ENT REFUSED Performed By: #### L 400.0001, .2199 #### [facility] [address] [place], [address] PLT Normal 150-450 [facility] Comment on above: Order Comment: 114.2 Result Comment: BRENDON ENT REFUSED Performed By: #### L 400.0001, #### [facility] [address] [place], [address] RBC Normal 4.2-5.4 [facility] Comment on above: Order Comment: 114.2 Result Comment: BRENDON ENT REFUSED Performed By: #### L 400.0001, #### [facility] [address] [place], [address] RDW CV Normal 11.6-14.6 [facility] Comment on above: Order Comment: 114.2 Result Comment: BRENDON ENT REFUSED Performed By: #### L 400.0001, .2199 #### [facility] [address] [place], [address] RDW SD Normal 35.1-43.9 [facility] Comment on above: Order Comment: 114.2 Result Comment: BRENDON ENT REFUSED Performed By: #### L 400.0001, M1.0 #### [facility] [address] [place], [address] WBC Normal 4.4-11.0 [facility] Comment on above: Order Comment: 114.2 Result Comment: BRENDON ENT REFUSED Performed By: #### L 400.0001, M100.2200 #### [facility] [address] [place], [address] Urine Cultureon 11-12-2024 URC #4 If Gram Positive Harshal susceptibility studies are desired, contact the Microbiology Laboratory within 48 hours [phone]. Urine Culture Copy of report sent to Infection Control Printer [id number] 11/10/24 8048 LUCA. Urine Culture RESULTS CALLED TO QUINCY Alvarenga 11/10/24 135Obdulio Locke. REPORT READ BACK BY . Urine Culture ESBL Escherichia coli Dalton Count 25,000-50,000 MARKER ESBL producing OrganismA MARKER ESBL producing OrganismA Dalton Count 25,000-50,000 Proteus mirabilis Dalton Count 25,000-50,000 Corynebact. pseudodiphtheritic Staphylococcus warneri ESBL [...] S Vancomycin Islt ASHU [address] [facility] Comment on above: Performed By: #### L 100.0500, L500.2500 #### [facility] [address] [place], [address] Urinalysis, Completeon 11-05 EPI,SQUAMOUS 0-5 SEEN Normal 5-10 [facility] Comment on above: Order Comment: 114.2 Performed By: #### L 100.0500, L500.2500 #### [facility] [address] [place], [address] BACTERIA 0 SEEN Normal None Seen [facility] Comment on above: Order Comment: 114.2 Performed By: #### L 100.0500, L500.2500 #### [facility] [address] [place], [address] Mucus Ql (Urine sed) 0 SEEN Normal [facility] Comment on above: Order Comment: 114.2 Performed By: #### L 100.0500, L500.2500 #### [facility] [address] [place], [address] RBC 0 SEEN Normal 0-5 [facility] Comment on above: Order Comment: 114.2 Performed By: #### L 100.0500, L500.2500 #### [facility] [address] [place], [address] WBC 0 SEEN Normal 0-5 [facility] Comment on above: Order Comment: 114.2 Performed By: #### L 100.0500, L500.2500 #### [facility] [address] [place], [address] Bilirubin Test strip Ql (U)O rdered By: Lucy Quick on 11-04-2024 Bilirubin Ql (U) Negative Negative [facility] Epithelial cells.squamous LM Ql (Urine sed)Ordered By: Lucy Quick on 11-04-2024 Epithelial cells.squamous LM.HPF (Urine sed) [#/Area] 0 /[HPF] 5-10 [facility] Glucose Ql (U)Ordered By: Jemal Campos on 11-04-2024 Urine Glucose (UA) Normal mg/dl Normal [facility] Ketones Test strip Ql (U)Ord ered By: Lucy Quick on 11-04-2024 Ketones Ql (U) Negative Negative [facility] Microscopic analysis of urin e for red blood cells (RBC)Ordered By: Lucy Quick on 11-04-2024 Urine RBC 0 SEEN /hpf 0-5 [facility] Mucus LM Ql (Urine sed)Order ed By: Lucy Quick on 11-04-2024 Mucus Ql (Urine sed) 0 SEEN /hpf [facility] Nitrite Test strip Ql (U)Ord ered By: Lucy Quick on 11-04-2024 Nitrite Ql (U) Negative Negative [facility] Protein Test strip Ql (U)Ord ered By: Lucy Quick on 11-04-2024 Protein Ql (U) Negative Negative [facility] Urine blood detectionOrdered By: Lucy Quick on 11-04-2024 Urine Occult Blood Negative Negative [facility] Urine clarityOrdered By: Josee Quick on 11-04-2024 Clarity (U) Clear Clear [facility] Urine color determinationOrd ered By: Lucy Quick on 11-04-2024 Color (U) Yellow Yellow [facility] Urine cultureOrdered By: Josee Quick on 11-04-2024 Bacteria identified Cx Nom (U) ESBL Escherichia coli Abnormal [facility] Bacteria identified Cx Nom (U) Proteus mirabilis Abnormal [facility] Bacteria identified Cx Nom (U) Staphylococcus warneri Abnormal [facility] Bacteria identified Cx Nom (U) Corynebact. pseudodiphtheritic Abnormal [facility] Urine leukocyte esterase det ection by dipstickOrdered By: Lucy Quick on 11-04-2024 Leukocyte esterase Test strip Ql (U) Negative Negative [facility] Urine pHOrdered By: Lucy mcguire on 11-04-2024 pH (U) 7.0 [pH] 5.0 - 8.0 [facility] Urine sediment bacteria coun t by microscopy (number/high power field)Ordered By: Lucy Quick on 11-04-2024 Bacteria LM.HPF (Urine sed) [#/Area] 0 /[HPF] None Seen [facility] Urine specific gravity measu rementOrdered By: Lucy Quick on 11-04-2024 Specific gravity (U) [Rel density] 1.010 1.002-1.030 [facility] Urobilinogen Ql (U)Ordered B y: Lucy Quick on 11-04-2024 Urine Urobilinogen Normal mg/dl Normal [facility] White blood cell countOrdere d By: Lucy Quick on 11-04-2024 Urine WBC 0 SEEN /hpf 0-5 [facility] Basic Metabolic Profile (BMP )on 10-09-2024 BUN/CRE 28.4 RATIO High 10-20 [facility] Comment on above: Order Comment: 114.2 Performed By: #### L 100.0500, L500.2500 #### [facility] [address] [place], [address] CA,Total 9.5 mg/dL Normal 8.5-10.1 [facility] Comment on above: Order Comment: 114.2 Performed By: #### L 100.0500, L500.2500 #### [facility] [address] [place], [address] Chloride [Moles/Vol] 101 mmol/L Normal 98-107 [facility] Comment on above: Order Comment: 114.2 Performed By: #### L 100.0500, L500.2500 #### [facility] [address] [place], [address] CO2 [Moles/Vol] 29.0 mmol/L Normal 21.0-32.0 [facility] Comment on above: Order Comment: 114.2 Performed By: #### L 100.0500, L500.2500 #### [facility] [address] [place], [address] Creatinine [Mass/Vol] 1.48 mg/dL High 0.55-1.02 [facility] Comment on above: Order Comment: 114.2 Result Comment: The validity of the calculated GFR GFRAA in patients over 70 years has not been determined. Clinical correlation is essential. Performed By: #### L 100.0500, L500.2500 #### [facility] [address] [place], [address] EST GFR - AA 45 mL/min Low >60 [facility] Comment on above: Order Comment: 114.2 Result Comment: Afri can Dominican GFR Calc Performed By: #### L 100.0500, L500.2500 #### [facility] [address] [place], [address] GAP 6 Normal 5-15 [facility] Comment on above: Order Comment: 114.2 Performed By: #### L 100.0500, L500.2500 #### [facility] [address] [place], [address] GFR/1.73 sq M.predicted among non-blacks MDRD (S/P/Bld) [Vol rate/Area] 37 mL/min/{1.73_m2} Low >60 [facility] Comment on above: Order Comment: 114.2 Result Comment: Non- GFR Calc Performed By: #### L 100.0500, L500.2500 #### [facility] [address] [place], [address] Glucose [Mass/Vol] 166 mg/dL High 74-106 [facility] Comment on above: Order Comment: 114.2 Result Comment: Fast ing Glucose result greater than or equal to 126 mg/dL suggests DIABETES MELLITUS per A.D.A. criteria. Performed By: #### L 100.0500, L500.2500 #### [facility] [address] [place], [address] Potassium [Moles/Vol] 4.8 mmol/L Normal 3.5-5.1 [facility] Comment on above: Order Comment: 114.2 Result Comment: Mode rate Hemolysis, Result may be falsely increased. Performed By: #### L 100.0500, L500.2500 #### [facility] [address] [place], [address] Sodium [Moles/Vol] 136 mmol/L Normal 136-145 [facility] Comment on above: Order Comment: 114.2 Performed By: #### L 100.0500, L500.2500 #### [facility] [address] [place], [address] Urea nitrogen [Mass/Vol] 42 mg/dL High 7-18 [facility] Comment on above: Order Comment: 114.2 Performed By: #### L 100.0500, L500.2500 #### [facility] [address] [place], [address] Blood urea nitrogen (BUN)/cr eatinine ratioOrdered By: Lucy Quick on 10-09-2024 Urea nitrogen/Creatinine [Mass ratio] 28.4 mg/mg High 10-20 [facility] CBC-Complete Blood Cnt No Di ffon 10-09-2024 Erythrocyte distribution width (RBC) [Ratio] 13.2 % Normal 11.6-14.6 [facility] Comment on above: Order Comment: 114.2 Performed By: #### L 100.0500, L500.2500 #### [facility] [address] [place], [address] Hematocrit (Bld) [Volume fraction] 36.1 % Low 37-47 [facility] Comment on above: Order Comment: 114.2 Performed By: #### L 100.0500, L500.2500 #### [facility] [address] [place], [address] Hemoglobin (Bld) [Mass/Vol] 11.0 g/dL Low 12.0-15.0 [facility] Comment on above: Order Comment: 114.2 Performed By: #### L 100.0500, L500.2500 #### [facility] [address] [place], [address] MCH (RBC) [Entitic mass] 31.1 pg Normal 27.0-32.0 [facility] Comment on above: Order Comment: 114.2 Performed By: #### L 100.0500, L500.2500 #### [facility] [address] [place], [address] MCHC (RBC) [Mass/Vol] 30.5 g/dL Low 32-36 [facility] Comment on above: Order Comment: 114.2 Performed By: #### L 100.0500, L500.2500 #### [facility] [address] [place], [address] MCV (RBC) [Entitic vol] 102.0 fL High 81-99 [facility] Comment on above: Order Comment: 114.2 Performed By: #### L 100.0500, L500.2500 #### [facility] [address] [place], [address] Platelet mean volume (Bld) [Entitic vol] 9.1 fL Normal 6.2-12.0 [facility] Comment on above: Order Comment: 114.2 Performed By: #### L 100.0500, L500.2500 #### [facility] [address] [place], [address] Platelets (Bld) [#/Vol] 211 10*3/uL Normal 150-450 [facility] Comment on above: Order Comment: 114.2 Performed By: #### L 100.0500, L500.2500 #### [facility] [address] [place], [address] RBC (Bld) [#/Vol] 3.54 10*6/uL Low 4.2-5.4 [facility] Comment on above: Order Comment: 114.2 Performed By: #### L 100.0500, L500.2500 #### [facility] [address] [place], [address] RDW SD 48.8 fl High 35.1-43.9 [facility] Comment on above: Order Comment: 114.2 Performed By: #### L 100.0500, L500.2500 #### [facility] [address] [place], [address] WBC (Bld) [#/Vol] 7.4 10*3/uL Normal 4.4-11.0 [facility] Comment on above: Order Comment: 114.2 Performed By: #### L 100.0500, L500.2500 #### [facility] [address] [place], [address] Carbon dioxide measurementOr dered By: Lucy Quick on 10-09-2024 CO2 [Moles/Vol] 29.0 mmol/L 21.0-32.0 [facility] Chloride measurementOrdered By: Lucy Quick on 10-09-2024 Chloride [Moles/Vol] 101 mmol/L 98-107 [facility] Erythrocyte distribution wid th ratioOrdered By: Lucy Quick on 10-09-2024 Erythrocyte distribution width (RBC) [Ratio] 13.2 % 11.6-14.6 [facility] Erythrocyte distribution wid th standard deviationOrdered By: Lucy Quick on 10-09-2024 Erythrocyte distribution width (RBC) [Entitic vol] 48.8 fL High 35.1-43.9 [facility] Estimated glomerular filtrat ion rate (GFR) AmericanOrdered By: Lucy Quick on 10-09-2024 Estimated GFR (MDRD) Amer 45 mL/min Low >60 [facility] Comment on above: GFR Calc Glomerular filtration rate ( GFR) estimationOrdered By: Lucy Quick on 10-09-2024 Estimated GFR (MDRD) Non-Af Amer 37 mL/min Low >60 [facility] Comment on above: Non- GFR Calc Glucose measurementOrdered B y: Lucy Quick on 10-09-2024 Glucose [Mass/Vol] 166 mg/dL High 74-106 [facility] Comment on above: Fasting Glucose resu lt greater than or equal to 126 mg/dL suggests DIABETES MELLITUS per A.D.A. criteria. Hematocrit Auto (Bld) [Volum e fraction]Ordered By: Lucy Quick on 10-09-2024 Hematocrit (Bld) [Volume fraction] 36.1 % Low 37-47 [facility] Hemoglobin measurementOrdere d By: Lucy Quick on 10-09-2024 Hemoglobin (Bld) [Mass/Vol] 11.0 g/dL Low 12.0-15.0 [facility] MCV (mean corpuscular volume ) determinationOrdered By: Lucy Quick on 10-09-2024 MCV (RBC) [Entitic vol] 102.0 fL High 81-99 [facility] Mean corpuscular hemoglobin (MCH) determinationOrdered By: Lucy Quick on 10-09-2024 MCH (RBC) [Entitic mass] 31.1 pg 27.0-32.0 [facility] Mean corpuscular hemoglobin concentration (MCHC) determinationOrdered By: Lucy Quick on 10-09-2024 MCHC (RBC) [Mass/Vol] 30.5 g/dL Low 32-36 [facility] Mean platelet volume determi nationOrdered By: Lucy Quick on 10-09-2024 Platelet mean volume (Bld) [Entitic vol] 9.1 fL 6.2-12.0 [facility] Platelet countOrdered By: Jemal Campos on 10-09-2024 Platelets (Bld) [#/Vol] 211 10*3/uL 150-450 [facility] Potassium measurementOrdered By: Lucy Quick on 10-09-2024 Potassium [Moles/Vol] 4.8 mmol/L 3.5-5.1 [facility] Comment on above: Moderate Hemolysis, Result may be falsely increased. RBC Auto (Bld) [#/Vol]Ordere d By: Lucy Quick on 10-09-2024 RBC (Bld) [#/Vol] 3.54 10*6/uL Low 4.2-5.4 [facility] Serum anion gap measurementO rdered By: Lucy Quick on 10-09-2024 Anion gap [Moles/Vol] 6 mmol/L 5-15 [facility] Serum or plasma calcium catracho urement (mass/volume)Ordered By: Lucy Quick on 10-09-2024 Calcium [Mass/Vol] 9.5 mg/dL 8.5-10.1 [facility] Serum or plasma creatinine m easurement (mass/volume)Ordered By: Lucy Quick on 10-09-2024 Creatinine [Mass/Vol] 1.48 mg/dL High 0.55-1.02 [facility] Comment on above: The validity of the calculated GFR & GFRAA in patients over 70 years has not been determined. Clinical correlation is essential. Serum or plasma urea nitroge n measurement (mass/volume)Ordered By: Lucy Quick on 10-09-2024 Urea nitrogen [Mass/Vol] 42 mg/dL High 7-18 [facility] Sodium levelOrdered By: Alfonso Quick on 10-09-2024 Sodium [Moles/Vol] 136 mmol/L 136-145 [facility] White blood cell (WBC) count Ordered By: Lucy Quick on 10-09-2024 WBC (Bld) [#/Vol] 7.4 10*3/uL 4.4-11.0 [facility] Albumin to globulin ratioOrd ered By: Lucy Quick on 10-02-2024 Albumin/Globulin [Mass ratio] 0.8 {ratio} Low 0.9-2.4 [facility] Comment on above: Order Comment: 114.2 Performed By: #### L 100.0500, L500.4050, L500.4100, L501.9924 #### [facility] [place], [address] Automated blood erythrocyte countOrdered By: Lucy Quick on 10-02-2024 RBC (Bld) [#/Vol] 3.28 10*6/uL Low 4.2-5.4 [facility] Comment on above: Order Comment: 114.2 Performed By: #### L 100.0500, L500.4050, L500.4100, L501.9985 #### [facility] [address] [place], [place], [id number] Automated blood hematocrit ( percentage)Ordered By: Lucy Quick on 10-02-2024 Hematocrit (Bld) [Volume fraction] 33.0 % Low 37-47 [facility] Comment on above: Order Comment: 114.2 Performed By: #### L 100.0500, L500.4050, L500.4100, L501.9985 #### [facility] [address] [place], [place], [id number] Bilirubin, totalOrdered By: Lucy Quick on 10-02-2024 Bilirubin [Mass/Vol] 0.30 mg/dL Normal 0.20-1.00 [facility] Comment on above: For patients on eltr ombopag therapy, use of Dimension Magdal[place] TBIL is not recommended. Order Comment: 114.2 Result Comment: For patients on eltrombopag therapy, use of Dimension [place]ena TBIL is not recommended. Performed By: #### L 100.0500, L500.4050, L500.4100, L501.9985 #### [facility] [address] [place], [place], [id number] Blood urea nitrogen (BUN)/cr eatinine ratioOrdered By: Lucy Quick on 10-02-2024 Urea nitrogen/Creatinine [Mass ratio] 29.6 mg/mg High 10-20 [facility] CBC-Complete Blood Cnt No Di ffon 10-02-2024 RDW SD 46.5 fl High 35.1-43.9 [facility] Comment on above: Order Comment: 114.2 Performed By: #### L 100.0500, L500.4050, L500.4100, L501.9985 #### [facility] [address] [place], [address] Carbon dioxide measurementOr dered By: Lucy Quick on 10-02-2024 CO2 [Moles/Vol] 29.0 mmol/L Normal 21.0-32.0 [facility] Comment on above: Order Comment: 114.2 Performed By: #### L 100.0500, L500.4050, L500.4100, L501.9985 #### [facility] [address] [place], [address] Chloride measurementOrdered By: Lucy Quick on 10-02-2024 Chloride [Moles/Vol] 102 mmol/L Normal 98-107 [facility] Comment on above: Order Comment: 114.2 Performed By: #### L 100.0500, L500.4050, L500.4100, L501.9985 #### [facility] [address] [place], [address] Comprehensive Metabolic Prof ilon 10-02-2024 ALK P 56 U/L Normal 45-117 [facility] Comment on above: Order Comment: 114.2 Performed By: #### L 100.0500, L500.4050, L500.4100, L501.9985 #### [facility] [address] [place], [address] BUN/CRE 29.6 RATIO High 10-20 [facility] Comment on above: Order Comment: 114.2 Performed By: #### L 100.0500, L500.4050, L500.4100, L501.9985 #### [facility] [address] [place], [address] CA,Total 8.4 mg/dL Low 8.5-10.1 [facility] Comment on above: Order Comment: 114.2 Performed By: #### L 100.0500, L500.4050, L500.4100, L501.9985 #### [facility] [address] [place], [address] EST GFR - AA 39 mL/min Low >60 [facility] Comment on above: Order Comment: 114.2 Result Comment: Afri can Dominican GFR Calc Performed By: #### L 100.0500, L500.4050, L500.4100, L501.9985 #### [facility] [address] [place], [address] GAP 7 Normal 5-15 [facility] Comment on above: Order Comment: 114.2 Performed By: #### L 100.0500, L500.4050, L500.4100, L501.9985 #### [facility] [address] [place], [address] GFR/1.73 sq M.predicted among non-blacks MDRD (S/P/Bld) [Vol rate/Area] 32 mL/min/{1.73_m2} Low >60 [facility] Comment on above: Order Comment: 114.2 Result Comment: Non- GFR Calc Performed By: #### L 100.0500, L500.4050, L500.4100, L501.9985 #### [facility] [address] [place], [address] T PROT 5.5 g/dL Low 6.4-8.2 [facility] Comment on above: Order Comment: 114.2 Performed By: #### L 100.0500, L500.4050, L500.4100, L501.9985 #### [facility] [address] [place], [address] Comprehensive Metabolic Prof ilOrdered By: Lucy Quick on 10-02-2024 AST [Catalytic activity/Vol] 32 U/L Normal 15-37 [facility] Comment on above: Slight Hemolysis, Re sult may be falsely increased. Order Comment: 114.2 Result Comment: Slig ht Hemolysis, Result may be falsely increased. Performed By: #### L 100.0500, L500.4050, L500.4100, L501.9985 #### [facility] [address] [place], [address] Erythrocyte distribution wid th ratioOrdered By: Lucy Quick on 10-02-2024 Erythrocyte distribution width (RBC) [Ratio] 12.8 % Normal 11.6-14.6 [facility] Comment on above: Order Comment: 114.2 Performed By: #### L 100.0500, L500.4050, L500.4100, L501.9985 #### [facility] [address] [place], [place], [id number] Erythrocyte distribution wid th standard deviationOrdered By: Lucy Quick on 10-02-2024 Erythrocyte distribution width (RBC) [Entitic vol] 46.5 fL High 35.1-43.9 [facility] Estimated glomerular filtrat ion rate (GFR) AmericanOrdered By: Lucy Quick on 10-02-2024 Estimated GFR (MDRD) Amer 39 mL/min Low >60 [facility] Comment on above: GFR Calc Glomerular filtration rate ( GFR) estimationOrdered By: Lucy Quick on 10-02-2024 Estimated GFR (MDRD) Non-Af Amer 32 mL/min Low >60 [facility] Comment on above: Non- GFR Calc Glucose measurementOrdered B y: Lucy Quick on 10-02-2024 Glucose [Mass/Vol] 247 mg/dL High 74-106 [facility] Comment on above: Glucose result great er than or equal to 200 mg/dLsuggests DIABETES MELLITUS per A.D.A. criteria. Order Comment: 114.2 Result Comment: Gluc ose result greater than or equal to 200 mg/dL suggests DIABETES MELLITUS per A.D.A. criteria. Performed By: #### L 100.0500, L500.4050, L500.4100, L501.9985 #### [facility] [address] [place], [place], [id number] Hemoglobin A1c percentageOrd ered By: Lucy Quick on 10-02-2024 HbA1c (Bld) [Mass fraction] 7.4 % High 3.8-5.6 [facility] Comment on above: Normal < 5.7 % Predi abetic 5.7 - 6.4 % Diabetic >or= 6.5 % Please note range changes. Order Comment: 114.2 Result Comment: Norm al < 5.7 % Prediabetic 5.7 - 6.4 % Diabetic >or= 6.5 % Please note range changes. Performed By: #### L 100.0500, L500.4050, L500.4100, L501.9985 #### [facility] [address] [place], [address] Hemoglobin measurementOrdere d By: Lucy Quick on 10-02-2024 Hemoglobin (Bld) [Mass/Vol] 10.4 g/dL Low 12.0-15.0 [facility] Comment on above: Order Comment: 114.2 Performed By: #### L 100.0500, L500.4050, L500.4100, L501.9985 #### [facility] [address] [place], [address] High density lipoprotein (HD L) measurementOrdered By: Lucy Quick on 10-02-2024 Cholesterol in HDL [Mass/Vol] 39 mg/dL Low [facility] Comment on above: The drugs N-Acetylcy steine [...] #### L 100.0500, L500.4050, L500.4100, L501.9985 #### [facility] [address] [place], [address] Lipid Profileon 10-02-2024 Cholesterol in VLDL [Mass/Vol] 75 mg/dL High 5-40 [facility] Comment on above: Order Comment: 114.2 Performed By: #### L 100.0500, L500.4050, L500.4100, L501.9985 #### [facility] [address] [place], [place], [id number] Low density lipoprotein (LDL ) cholesterol measurementOrdered By: Lucy Quick on 10-02-2024 Cholesterol in LDL [Mass/Vol] 77 mg/dL Normal 0-130 [facility] Comment on above: Order Comment: 114.2 Performed By: #### L 100.0500, L500.4050, L500.4100, L501.9985 #### [facility] [address] [place], [address] MCV (mean corpuscular volume ) determinationOrdered By: Lucy Quick on 10-02-2024 MCV (RBC) [Entitic vol] 100.6 fL High 81-99 [facility] Comment on above: Order Comment: 114.2 Performed By: #### L 100.0500, L500.4050, L500.4100, L501.9985 #### [facility] [address] [place], [place], [id number] Mean corpuscular hemoglobin (MCH) determinationOrdered By: Lucy Quick on 10-02-2024 MCH (RBC) [Entitic mass] 31.7 pg Normal 27.0-32.0 [facility] Comment on above: Order Comment: 114.2 Performed By: #### L 100.0500, L500.4050, L500.4100, L501.9985 #### [facility] [address], [place], [id number] Mean corpuscular hemoglobin concentration (MCHC) determinationOrdered By: Lucy Quick on 10-02-2024 MCHC (RBC) [Mass/Vol] 31.5 g/dL Low 32-36 [facility] Comment on above: Order Comment: 114.2 Performed By: #### L 100.0500, L500.4050, L500.4100, L501.9985 #### [facility] [address] [place], [address] Mean platelet volume determi nationOrdered By: Lucy Quick on 10-02-2024 Platelet mean volume (Bld) [Entitic vol] 9.1 fL Normal 6.2-12.0 [facility] Comment on above: Order Comment: 114.2 Performed By: #### L 100.0500, L500.4050, L500.4100, L501.9985 #### [facility] [address] [place], [address] Platelet countOrdered By: Jemal Campos on 10-02-2024 Platelets (Bld) [#/Vol] 286 10*3/uL Normal 150-450 [facility] Comment on above: Order Comment: 114.2 Performed By: #### L 100.0500, L500.4050, L500.4100, L501.9985 #### [facility] [address] [place], [place], [id number] Potassium measurementOrdered By: Lucy Quick on 10-02-2024 Potassium [Moles/Vol] 4.1 mmol/L Normal 3.5-5.1 [facility] Comment on above: Slight Hemolysis, Re sult may be falsely increased. Order Comment: 114.2 Result Comment: Slig ht Hemolysis, Result may be falsely increased. Performed By: #### L 100.0500, L500.4050, L500.4100, L501.9985 #### [facility] [address] [place], [address] Serum anion gap measurementO rdered By: Lucy Quick on 10-02-2024 Anion gap [Moles/Vol] 7 mmol/L 5-15 [facility] Serum globulin measurementOr dered By: Lucy Quick on 10-02-2024 Globulin (S) [Mass/Vol] 3.0 g/dL Normal 2.2-4.2 [facility] Comment on above: Order Comment: 114.2 Performed By: #### L 100.0500, L500.4050, L500.4100, L501.9985 #### [facility] [address], [place], [id number] Serum or plasma alanine barnes otransferase (ALT) measurementOrdered By: Lucy Quick on 10-02-2024 ALT [Catalytic activity/Vol] 49 U/L Normal 13-56 [facility] Comment on above: Order Comment: 114.2 Performed By: #### L 100.0500, L500.4050, L500.4100, L501.9985 #### [facility] [address], [place], [id number] Serum or plasma albumin catracho urement (mass/volume)Ordered By: Lucy Quick on 10-02-2024 Albumin [Mass/Vol] 2.5 g/dL Low 3.2-5.0 [facility] Comment on above: Order Comment: 114.2 Performed By: #### L 100.0500, L500.4050, L500.4100, L501.9985 #### [facility] [address], [place], [id number] Serum or plasma alkaline sana sphatase measurementOrdered By: Lucy Quick on 10-02-2024 ALP [Catalytic activity/Vol] 56 U/L 45-117 [facility] Serum or plasma calcium catracho urement (mass/volume)Ordered By: Lucy Quick on 10-02-2024 Calcium [Mass/Vol] 8.4 mg/dL Low 8.5-10.1 [facility] Serum or plasma cholesterol measurement (mass/volume)Ordered By: Lucy Quick on 10-02-2024 Cholesterol [Mass/Vol] 191 mg/dL Normal 200 [facility] Comment on above: <200 mg/dL Desirable 200-240 mg/dL Borderline >240 mg/dL High Risk Order Comment: 114.2 Result Comment: <200 mg/dL Desirable 200-240 mg/dL Borderline >240 mg/dL High Risk Performed By: #### L 100.0500, L500.4050, L500.4100, L501.9985 #### [facility] [address] [place], [address] Serum or plasma creatinine m easurement (mass/volume)Ordered By: Lucy Quick on 10-02-2024 Creatinine [Mass/Vol] 1.69 mg/dL High 0.55-1.02 [facility] Comment on above: The validity of the calculated GFR & GFRAA in patients over 70 years has not been determined. Clinical correlation is essential. Order Comment: 114.2 Result Comment: The validity of the calculated GFR GFRAA in patients over 70 years has not been determined. Clinical correlation is essential. Performed By: #### L 100.0500, L500.4050, L500.4100, L501.9985 #### [facility] [address] [place], [address] Serum or plasma urea nitroge n measurement (mass/volume)Ordered By: Lucy Quick on 10-02-2024 Urea nitrogen [Mass/Vol] 50 mg/dL High 7-18 [facility] Comment on above: Order Comment: 114.2 Performed By: #### L 100.0500, L500.4050, L500.4100, L501.9985 #### [facility] [address] [place], [address] Sodium levelOrdered By: Alfonso Quick on 10-02-2024 Sodium [Moles/Vol] 138 mmol/L Normal 136-145 [facility] Comment on above: Order Comment: 114.2 Performed By: #### L 100.0500, L500.4050, L500.4100, L501.9985 #### [facility] [address] [place], [address] Total proteinOrdered By: Josee Quick on 10-02-2024 Protein [Mass/Vol] 5.5 g/dL Low 6.4-8.2 [facility] Triglycerides measurementOrd ered By: Lucy Quick on 10-02-2024 Triglyceride [Mass/Vol] 373 mg/dL High [facility] Comment on above: The drugs [...] #### L 100.0500, L500.4050, L500.4100, L501.9985 #### [facility] [address] [place], [address] Very low density lipoprotein (VLDL) cholesterol measurementOrdered By: Lucy Quick on 10-02-2024 VLDL Cholesterol 75 mg/dL High 5-40 [facility] White blood cell (WBC) count Ordered By: Lucy Quick on 10-02-2024 WBC (Bld) [#/Vol] 10.5 10*3/uL Normal 4.4-11.0 [facility] Comment on above: Order Comment: 114.2 Performed By: #### L 100.0500, L500.4050, L500.4100, L501.9985 #### [facility] [address] [place], [address] Basic Metabolic Profile (BMP )on 09-17-2024 BUN/CRE 29.9 RATIO High 08-17 [facility] Comment on above: Order Comment: 114.2 Performed By: #### L 100.0500, L500.2500 #### [facility] [address] [place], [address] CA,Total 9.0 mg/dL Normal 8.5-10.1 [facility] Comment on above: Order Comment: 114.2 Performed By: #### L 100.0500, L500.2500 #### [facility] [address] [place], [address] Chloride [Moles/Vol] 101 mmol/L Normal 98-107 [facility] Comment on above: Order Comment: 114.2 Performed By: #### L 100.0500, L500.2500 #### [facility] [address] [place], [address] CO2 [Moles/Vol] 34.0 mmol/L High 21.0-32.0 [facility] Comment on above: Order Comment: 114.2 Performed By: #### L 100.0500, L500.2500 #### [facility] [address] [place], [address] Creatinine [Mass/Vol] 1.27 mg/dL High 0.55-1.02 [facility] Comment on above: Order Comment: 114.2 Result Comment: The validity of the calculated GFR GFRAA in patients over 70 years has not been determined. Clinical correlation is essential. Performed By: #### L 100.0500, L500.2500 #### [facility] [address] [place], [address] EST GFR - AA 54 mL/min Low >60 [facility] Comment on above: Order Comment: 114.2 Result Comment: Afri can Dominican GFR Calc Performed By: #### L 100.0500, L500.2500 #### [facility] [address] [place], [address] GAP 5 Normal 5-15 [facility] Comment on above: Order Comment: 114.2 Performed By: #### L 100.0500, L500.2500 #### [facility] [address] [place], [address] GFR/1.73 sq M.predicted among non-blacks MDRD (S/P/Bld) [Vol rate/Area] 45 mL/min/{1.73_m2} Low >60 [facility] Comment on above: Order Comment: 114.2 Result Comment: Non- GFR Calc Performed By: #### L 100.0500, L500.2500 #### [facility] [address] [place], [address] Glucose [Mass/Vol] 137 mg/dL High 74-106 [facility] Comment on above: Order Comment: 114.2 Result Comment: Fast ing Glucose result greater than or equal to 126 mg/dL suggests DIABETES MELLITUS per A.D.A. criteria. Performed By: #### L 100.0500, L500.2500 #### [facility] [address] [place], [address] Potassium [Moles/Vol] 4.2 mmol/L Normal 3.5-5.1 [facility] Comment on above: Order Comment: 114.2 Performed By: #### L 100.0500, L500.2500 #### [facility] [address] [place], [address] Sodium [Moles/Vol] 140 mmol/L Normal 136-145 [facility] Comment on above: Order Comment: 114.2 Performed By: #### L 100.0500, L500.2500 #### [facility] [address] [place], [address] Urea nitrogen [Mass/Vol] 38 mg/dL High 7-18 [facility] Comment on above: Order Comment: 114.2 Performed By: #### L 100.0500, L500.2500 #### [facility] [address] [place], [address] Blood urea nitrogen (BUN)/cr eatinine ratioOrdered By: Lucy Quick on 09-17-2024 Urea nitrogen/Creatinine [Mass ratio] 29.9 mg/mg High - [facility] CBC-Complete Blood Cnt No Di ffon 09-17-2024 Erythrocyte distribution width (RBC) [Ratio] 12.5 % Normal 11.6-14.6 [facility] Comment on above: Order Comment: 114.2 Performed By: #### L 100.0500, L500.2500 #### [facility] [address] [place], [address] Hematocrit (Bld) [Volume fraction] 31.5 % Low 37-47 [facility] Comment on above: Order Comment: 114.2 Performed By: #### L 100.0500, L500.2500 #### [facility] [address] [place], [address] Hemoglobin (Bld) [Mass/Vol] 10.0 g/dL Low 12.0-15.0 [facility] Comment on above: Order Comment: 114.2 Performed By: #### L 100.0500, L500.2500 #### [facility] [address] [place], [address] MCH (RBC) [Entitic mass] 32.1 pg High 27.0-32.0 [facility] Comment on above: Order Comment: 114.2 Performed By: #### L 100.0500, L500.2500 #### [facility] [address] [place], [address] MCHC (RBC) [Mass/Vol] 31.7 g/dL Low 32-36 [facility] Comment on above: Order Comment: 114.2 Performed By: #### L 100.0500, L500.2500 #### [facility] [address] [place], [address] MCV (RBC) [Entitic vol] 101.0 fL High 81-99 [facility] Comment on above: Order Comment: 114.2 Performed By: #### L 100.0500, L500.2500 #### [facility] [address] [place], [address] Platelet mean volume (Bld) [Entitic vol] 8.9 fL Normal 6.2-12.0 [facility] Comment on above: Order Comment: 114.2 Performed By: #### L 100.0500, L500.2500 #### [facility] [address] [place], [address] Platelets (Bld) [#/Vol] 238 10*3/uL Normal 150-450 [facility] Comment on above: Order Comment: 114.2 Performed By: #### L 100.0500, L500.2500 #### [facility] [address] [place], [address] RBC (Bld) [#/Vol] 3.12 10*6/uL Low 4.2-5.4 [facility] Comment on above: Order Comment: 114.2 Performed By: #### L 100.0500, L500.2500 #### [facility] [address] [place], [address] RDW SD 46.8 fl High 35.1-43.9 [facility] Comment on above: Order Comment: 114.2 Performed By: #### L 100.0500, L500.2500 #### [facility] [address] [place], [address] WBC (Bld) [#/Vol] 8.8 10*3/uL Normal 4.4-11.0 [facility] Comment on above: Order Comment: 114.2 Performed By: #### L 100.0500, L500.2500 #### [facility] [address] [place], [address] Carbon dioxide measurementOr dered By: Lucy Quick on 09-17-2024 CO2 [Moles/Vol] 34.0 mmol/L High 21.0-32.0 [facility] Chloride measurementOrdered By: Lucy Quick on 09-17-2024 Chloride [Moles/Vol] 101 mmol/L 98-107 [facility] Erythrocyte distribution wid th ratioOrdered By: Lucy Quick on 09-17-2024 Erythrocyte distribution width (RBC) [Ratio] 12.5 % 11.6-14.6 [facility] Erythrocyte distribution wid th standard deviationOrdered By: Lucy Quick on 09-17-2024 Erythrocyte distribution width (RBC) [Entitic vol] 46.8 fL High 35.1-43.9 [facility] Estimated glomerular filtrat ion rate (GFR) AmericanOrdered By: Lucy Quick on 09-17-2024 Estimated GFR (MDRD) Amer 54 mL/min Low >60 [facility] Comment on above: GFR Calc Glomerular filtration rate ( GFR) estimationOrdered By: Lucy Quick on 09-17-2024 Estimated GFR (MDRD) Non-Af Amer 45 mL/min Low >60 [facility] Comment on above: Non- GFR Calc Glucose measurementOrdered B y: Lucy Quick on 09-17-2024 Glucose [Mass/Vol] 137 mg/dL High 74-106 [facility] Comment on above: Fasting Glucose resu lt greater than or equal to 126 mg/dL suggests DIABETES MELLITUS per A.D.A. criteria. Hematocrit Auto (Bld) [Volum e fraction]Ordered By: Lucy Quick on 09-17-2024 Hematocrit (Bld) [Volume fraction] 31.5 % Low 37-47 [facility] Hemoglobin measurementOrdere d By: Lucy Quick on 09-17-2024 Hemoglobin (Bld) [Mass/Vol] 10.0 g/dL Low 12.0-15.0 [facility] MCV (mean corpuscular volume ) determinationOrdered By: Lucy Quick on 09-17-2024 MCV (RBC) [Entitic vol] 101.0 fL High 81-99 [facility] Mean corpuscular hemoglobin (MCH) determinationOrdered By: Lucy Quick on 09-17-2024 MCH (RBC) [Entitic mass] 32.1 pg High 27.0-32.0 [facility] Mean corpuscular hemoglobin concentration (MCHC) determinationOrdered By: Lucy Quick on 09-17-2024 MCHC (RBC) [Mass/Vol] 31.7 g/dL Low 32-36 [facility] Mean platelet volume determi nationOrdered By: Lucy Quick on 09-17-2024 Platelet mean volume (Bld) [Entitic vol] 8.9 fL 6.2-12.0 [facility] Platelet countOrdered By: Jemal Campos on 09-17-2024 Platelets (Bld) [#/Vol] 238 10*3/uL 150-450 [facility] Potassium measurementOrdered By: Lucy Quick on 09-17-2024 Potassium [Moles/Vol] 4.2 mmol/L 3.5-5.1 [facility] RBC Auto (Bld) [#/Vol]Ordere d By: Lucy Quick on 09-17-2024 RBC (Bld) [#/Vol] 3.12 10*6/uL Low 4.2-5.4 [facility] Serum anion gap measurementO rdered By: Lucy Quick on 09-17-2024 Anion gap [Moles/Vol] 5 mmol/L 5-15 [facility] Serum or plasma calcium catracho urement (mass/volume)Ordered By: Lucy Quick on 09-17-2024 Calcium [Mass/Vol] 9.0 mg/dL 8.5-10.1 [facility] Serum or plasma creatinine m easurement (mass/volume)Ordered By: Lucy Quick on 09-17-2024 Creatinine [Mass/Vol] 1.27 mg/dL High 0.55-1.02 [facility] Comment on above: The validity of the calculated GFR & GFRAA in patients over 70 years has not been determined. Clinical correlation is essential. Serum or plasma urea nitroge n measurement (mass/volume)Ordered By: Lucy Quick on 09-17-2024 Urea nitrogen [Mass/Vol] 38 mg/dL High 7-18 [facility] Sodium levelOrdered By: Alfonso Quick on 09-17-2024 Sodium [Moles/Vol] 140 mmol/L 136-145 [facility] White blood cell (WBC) count Ordered By: Lucy Quick on 09-17-2024 WBC (Bld) [#/Vol] 8.8 10*3/uL 4.4-11.0 [facility] Vitamin D,25 Hydroxyon 08-19 Vitamin D 25-OH 49.2 ng/mL Normal [facility] Comment on above: Order Comment: 114.2 Result Comment: Fatmata min D 25(OH) Status Range Deficiency <20 ng/mL (50nmol/L) Insufficiency 20 - 30 ng/mL (50 - 75 nmol/L) Sufficiency 30 - 100 ng/mL (75 - 250 nmol/L) Toxicity >100 ng/mL (>250 nmol/L) Performed By: #### L 400.0001, M100.0 #### [facility] [address] [place], [place], [id number] Urine Cultureon 08-18-2024 [facility] Urine Culture Providencia stuartii Dalton Count >100,000 Escherichia coli Escherichia coli Providencia [...] TMP SMX Islt ASHU <=[address] [facility] Comment on above: Performed By: #### L 400.0001, M100.2200 #### [facility] [address] [place], [address] Urinalysis, Completeon 08-14 BACTERIA 1+ /hpf Normal None Seen [facility] Comment on above: Order Comment: SCCAT HETER SPECIMEN Performed By: #### L 400.0001, M100.2200 #### [facility] [address] [place], [address] EPI,SQUAMOUS 0-5 SEEN Normal 5-10 [facility] Comment on above: Order Comment: SCCAT HETER SPECIMEN Performed By: #### L 400.0001, M100.2200 #### [facility] [address] [place], [address] RBC 0-5 SEEN Normal 0-5 [facility] Comment on above: Order Comment: SCCAT HETER SPECIMEN Performed By: #### L 400.0001, M100.2200 #### [facility] [address] [place], [address] WBC 0-5 SEEN Normal 0-5 [facility] Comment on above: Order Comment: SCCAT HETER SPECIMEN Performed By: #### L 400.0001, M100.2200 #### [facility] [address] [place], [address] Mucus Ql (Urine sed) 0 SEEN Normal [facility] Comment on above: Order Comment: SCCAT HETER SPECIMEN Performed By: #### L 400.0001, M100.2200 #### [facility] [address] [place], [address] Urine Cultureon 08-12-2024 [facility] Escherichia coli Dalton Count 11,000-25,000 Providencia stuartii Providencia stuartii PMIR Dalton Count 1000-10,000 Proteus mirabilis Ampicillin Islt ASHU [...] TMP SMX Islt ASHU >=[address] [facility] Comment on above: Performed By: #### L 400.0001, #### [facility] [address] [place], [place], [id number] Urinalysis, Completeon 08-08 WBC 0-5 SEEN Normal 0-5 [facility] Comment on above: Order Comment: CHERYL TER SPECIMEN Performed By: #### L 400.0001, M1 #### [facility] [address] [place], [place], [id number] BACTERIA 1+ /hpf Normal None Seen [facility] Comment on above: Order Comment: CHERYL TER SPECIMEN Performed By: #### L 400.0001, M100.2200 #### [facility] [address] [place], [address] EPI,SQUAMOUS 0-5 SEEN Normal 5-10 [facility] Comment on above: Order Comment: CHERYL TER SPECIMEN Performed By: #### L 400.0001, M100.2200 #### [facility] [address] [place], [address] Mucus Ql (Urine sed) 0 SEEN Normal [facility] Comment on above: Order Comment: CHERYL TER SPECIMEN Performed By: #### L 400.0001, M100.2200 #### [facility] [address] [place], [address] RBC 0 SEEN Normal 0-5 [facility] Comment on above: Order Comment: CHERYL TER SPECIMEN Performed By: #### L 400.0001, M100.0 #### [facility] [address] [place], [address] CARECOORDon 03-09-2024 [facility] Site of Care Admission Date: 03/05/2024 07:08 PM Patient Name: KIMBERLY PATEL Location: [address]/[facility] [id number] Date of : 1955 - Placement Information - Referral Type:Longterm ICF - Return Referral ID:[id number] Provider Name:[facility] Address 1:[address] Address 2: City:[place] Selection Factors:Returning to Facility State:[facility] Care Coordination Da rachana Note/Update Clinical Update: active discharge orders Discharge Plan: return to [facility] Discharge Barriers: none Chart reviewed. Received message from attending stating patient is cleared for discharge. Discharge orders in. ANN and med rec complete. Submitted ride request via [employer] - awaiting acceptance and confirmation. Received notification that cot transportation has been setup for 1000 with [employer]. Phoned patient's daughter, Alexandro Cote, at [phone]. Received VM identifying full name. LM to notify of patient discharge and transport time. Notified RN. RN will notify patient. Messaged facility via [employer] to notify. Sent AVS and MAR to facility via [employer]. TCC will remain available for any additional discharge needs. [facility] CBC W Auto Differential pane l (Bld)on 03-09-2024 Basophils (Bld) [#/Vol] 0.0 10*3/uL 0.0 - 0.2 10*3/uL [facility] Basophils/100 WBC (Bld) 0.6 % 0.0 - 2.0 % [facility] Eosinophils (Bld) [#/Vol] 0.3 10*3/uL 0.0 - 0.5 10*3/uL [facility] Eosinophils/100 WBC (Bld) 5.4 % 0.0 - 6.0 % [facility] Erythrocyte distribution width (RBC) [Ratio] 17.4 % High 11.5 - 15.0 % [facility] Hematocrit (Bld) [Volume fraction] 25.7 % Low 35.0 - 47.0 % [facility] Hemoglobin (Bld) [Mass/Vol] 7.9 g/dL Low 11.7 - 16.0 g/dL [facility] Immature granulocytes (Bld) [#/Vol] 0.1 10*3/uL High NINF - 0.1 10*3/uL [facility] Immature granulocytes/100 WBC (Bld) 1.1 % 0.0 - 2.0 % [facility] Interpretation and review of laboratory results Abnormal [facility] Lymphocytes (Bld) [#/Vol] 2.2 10*3/uL 1.0 - 4.3 10*3/uL [facility] Lymphocytes/100 WBC (Bld) 34.3 % 15.0 - 45.0 % [facility] MCH (RBC) [Entitic mass] 29.4 pg 26.0 - 34.0 pg [facility] MCHC (RBC) [Mass/Vol] 30.7 % 30.5 - 36.0 % [facility] MCV (RBC) [Entitic vol] 95.5 fL 77.0 - 99.0 fL [facility] Monocytes (Bld) [#/Vol] 0.7 10*3/uL 0.0 - 0.9 10*3/uL [facility] Monocytes/100 WBC (Bld) 10.6 % 5.0 - 13.0 % [facility] Neutrophils (Bld) [#/Vol] 3.0 10*3/uL 1.8 - 7.5 10*3/uL [facility] Neutrophils/100 WBC (Bld) 48.0 % 38.0 - 82.0 % [facility] Nucleated RBC/100 WBC (Bld) [Ratio] 0.0 % [facility] Platelet mean volume (Bld) [Entitic vol] 8.6 fL Low 9.0 - 12.7 fL [facility] Platelets (Bld) [#/Vol] 256 10*3/uL 140 - 440 10*3/uL [facility] RBC (Bld) [#/Vol] 2.69 10*6/uL Low 3.80 - 5.2 0 10*6/uL [facility] WBC (Bld) [#/Vol] 6.3 10*3/uL 3.6 - 10.7 10*3/uL [facility] CBC WITH AUTO DIFFERENTIALon 03-09-2024 Basophils (Bld) [#/Vol] 0.0 10*3/uL Normal 0.0-0.2 [facility] Comment on above: Performed By: #### L [id number] ####[employer]: STEVIE ELMORE ([id number])[facility] [place] [address] Basophils/100 WBC (Bld) 0.6 % Normal 0.0-2.0 [facility] Comment on above: Performed By: #### L [id number] ####[employer]: STEVIE ELMORE ([id number])[facility] ([facility])[address] [place] [address] Eosinophils (Bld) [#/Vol] 0.3 10*3/uL Normal 0.0-0.5 [facility] Comment on above: Performed By: #### L [id number] ####[employer]: STEVIE ELMORE ([id number])[facility] ([facility])[address] Eosinophils/100 WBC (Bld) 5.4 % Normal 0.0-6.0 [facility] Comment on above: Performed By: #### L [id number] ####[employer]: STEVIE ELMORE ([phone])[facility] [place] [address] Erythrocyte distribution width (RBC) [Ratio] 17.4 % High 11.5-15.0 [facility] Comment on above: Performed By: #### L [id number] ####[employer]: STEVIE MOYASuPERICO ([id number])[facility] ([facility])[address] Hematocrit (Bld) [Volume fraction] 25.7 % Low 35.0-47.0 [facility] Comment on above: Performed By: #### L [id number] ####[employer]: STEVIE MOYAFAHAD ([id number])[facility] Hemoglobin (Bld) [Mass/Vol] 7.9 g/dL Low 11.7-16.0 [facility] Comment on above: Performed By: #### L [id number] ####[employer]: STEVIE CATARINA ([id number])[facility])[address] [place] [address] IMMATURE GRANS % 1.1 % Normal 0.0-2.0 [facility] Comment on above: Performed By: #### L [id number] ####[employer]: STEVIE PUTNAMPERICO ([phone])[facility] ([facility])[address] [place] [address] IMMATURE GRANS ABSOLUTE 0.1 10*3/uL High <0.1 [facility] Comment on above: Performed By: #### L [id number] ####[employer]: STEVIE PUTNAMPERICO ([phone])[facility] [place] [address] Lymphocytes (Bld) [#/Vol] 2.2 10*3/uL Normal 1.0-4.3 [facility] Comment on above: Performed By: #### L [id number] ####[employer]: STEVIE PUTNAMPERICO ([phone])[facility] [place] [address] Lymphocytes/100 WBC (Bld) 34.3 % Normal 15.0-45.0 [facility] Comment on above: Performed By: #### L [id number] ####[employer]: STEVIE MOYASuPERICO ([id number])[facility] HOSPITALGiancarlo RBOWNN (SBHLAB)[address] MCH (RBC) [Entitic mass] 29.4 pg Normal 26.0-34.0 [facility] Comment on above: Performed By: #### L [id number] ####[employer]: STEVIE CATARINA ([id number])[facility] HOSPITALGiancarlo [facility] ([facility]HL[facility])[address] MCHC 30.7 % Normal 30.5-36.0 [facility] Comment on above: Performed By: #### L [id number] ####[employer]: STEVIE CATARINA ([id number])[facility]OSPITALGiancarlo BROWNN (SBHLAB)[address] [place] [address] MCV (RBC) [Entitic vol] 95.5 fL Normal 77.0-99.0 [facility] Comment on above: Performed By: #### L [id number] ####[employer]: STEVIE PUTNAMPERICO ([id number])[facility] HOSPITALGiancarlo ALCOCERROOSEVELT [facility] HOSPITALN (SBHLAB)[address] [place] [address] Monocytes (Bld) [#/Vol] 0.7 10*3/uL Normal 0.0-0.9 [facility] Comment on above: Performed By: #### L [id number] ####[employer]: STEVIE ELMORE ([id number])[facility] HOSPITALGiancarlo BARBROOSEVELT GENERAL HOSPITALN (SBHLAB)[address] [place] [address] Monocytes/100 WBC (Bld) 10.6 % Normal 5.0-13.0 [facility] Comment on above: Performed By: #### L [id number] ####[employer]: STEVIE ELMORE ([id number])[facility] HOSPITALGiancarlo BARBROOSEVELT GENERAL HOSPITALN (SBHLAB)[address] NEUTROPHILS ABSOLUTE 3.0 10*3/uL Normal 1.8-7.5 [facility] Comment on above: Performed By: #### L [id number] ####[employer]: STEVIE ELMORE ([id number])[facility]ITALA [place] (SBHL[facility])[address] Neutrophils/100 WBC (Bld) 48.0 % Normal 38.0-82.0 [facility] Comment on above: Performed By: #### L [id number] ####[employer]: STEVIE ELMORE ([phone])[facility] [place] ([facility]HL[facility])[address] NRBC 0.0 /100 WBCs Normal 0.0-2.0 [facility] Comment on above: Performed By: #### L [id number] ####[employer]: STEVIE ELMORE ([id number])[facility] [place] ([facility])[address] Platelet mean volume (Bld) [Entitic vol] 8.6 fL Low 9.0-12.7 [facility] Comment on above: Performed By: #### L [id number] ####[employer]: STEVIE ELMORE ([id number])[facility]ITALA [place] ([facility]HL[facility])[address] [place] [address] [place] Platelets (Bld) [#/Vol] 256 10*3/uL Normal 140-440 [facility] Comment on above: Performed By: #### L [id number] ####[employer]: STEVIE ELMORE ([id number])[facility] [place] ([facility]HL[facility])[address] [place] [address] [place] RBC (Bld) [#/Vol] 2.69 10*6/uL Low 3.80-5.20 [facility] Comment on above: Performed By: #### L [id number] ####[employer]: STEVIE ELMORE ([id number])[facility] [place] ([facility])[address] WBC (Bld) [#/Vol] 6.3 10*3/uL Normal 3.6-10.7 [facility] Comment on above: Performed By: #### L [id number] ####[employer]: TSEVIE ELMORE ([id number])[facility] ([facility])[address] COMPREHENSIVE METABOLIC PANE Wade 03-09-2024 Albumin [Mass/Vol] 2.5 g/dL Low 3.5-5.0 [facility] Comment on above: Performed By: #### L AB103, LAB17 #### [employer]: STEVIE ELMORE ([id number]) [facility]ITALA [facility]BROOSEVEL[facility]OSPITALN (SBHLAB) [address] ALP [Catalytic activity/Vol] 82 U/L Normal 38-126 [facility] Comment on above: Performed By: #### L AB103, LAB17 #### [employer]: STEVIE ELMORE ([id number]) [facility] ([facility]) [address] ALT [Catalytic activity/Vol] 18 U/L Normal 0-34 [facility] Comment on above: Performed By: #### L AB103, LAB17 #### [employer]: STEVIE ELMORE ([id number]) [facility] (HL[facility]) [address] Anion gap [Moles/Vol] 5 mmol/L Normal 3-13 [facility] Comment on above: Performed By: #### L AB103, LAB17 #### [employer]: STEVIE ELMORE ([id number]) [facility] ([facility]) [address] AST [Catalytic activity/Vol] 17 U/L Normal 15-46 [facility] Comment on above: Performed By: #### L AB103, LAB17 #### [employer]: STEVIE ELMORE ([id number]) [facility] ([facility]) [address] Bilirubin [Mass/Vol] 0.3 mg/dL Normal 0.2-1.3 [facility] Comment on above: Performed By: #### L AB103, LAB17 #### [employer]: STEVIE ELMORE ([id number]) [facility] ([facility]) [address] Calcium [Mass/Vol] 7.8 mg/dL Low 8.4-10.4 [facility] Comment on above: Performed By: #### L AB103, LAB17 #### [employer]: STEVIE ELMORE ([id number]) [facility] ([facility]) [address] Chloride [Moles/Vol] 108 mmol/L High 98-107 [facility] Comment on above: Performed By: #### L AB103, LAB17 #### [employer]: STEVIE ELMORE ([id number]) [facility] ([facility]) [address] CO2 [Moles/Vol] 26 mmol/L Normal 22-30 [facility] Comment on above: Performed By: #### L AB103, LAB17 #### [employer]: STEVIE ELMORE ([id number]) [facility] ([facility]) [address] Creatinine [Mass/Vol] 1.22 mg/dL High 0.52-1.04 [facility] Comment on above: Performed By: #### L AB103, LAB17 #### [employer]: STEVIE ELMORE ([id number]) [facility] ([facility]) [address] [place] [address] [place] GLOMERULAR FILTRATION RATE ML/MIN/1.73 SQ M.PREDICTED 49.0 mL/min/1.73m*2 Low >60.0 [facility] Comment on above: Result Comment: Calc ulation based on the Chronic Kidney Disease Epidemiology Collaboration (CKD-EPI) equation refit without adjustment for race Performed By: #### L AB103, LAB17 #### [employer]: STEVIE ELMORE ([id number]) [facility] ([facility]) [address] [place] [address] [place] Glucose [Mass/Vol] 147 mg/dL High 70-100 [facility] Comment on above: Performed By: #### L AB103, LAB17 #### [employer]: STEVIE ELMORE ([id number]) [facility] ([facility]) [address] Potassium [Moles/Vol] 4.6 mmol/L Normal 3.5-5.1 [facility] Comment on above: Performed By: #### L AB103, LAB17 #### [employer]: STEVIE ELMORE ([id number]) [facility] ([facility]) [address] Protein [Mass/Vol] 4.8 g/dL Low 6.3-8.2 [facility] Comment on above: Performed By: #### L AB103, LAB17 #### [employer]: STEVIE ELMORE ([id number]) [facility] ([facility]) [address] Sodium [Moles/Vol] 138 mmol/L Normal 135-145 [facility] Comment on above: Performed By: #### L AB103, LAB17 #### [employer]: STEVIE ELMORE ([id number]) [facility] ([facility]) [address] Urea nitrogen [Mass/Vol] 26 mg/dL High 7-17 [facility] Comment on above: Performed By: #### L AB103, LAB17 #### [employer]: STEVIE ELMORE ([id number]) [facility] ([facility]) [address] Comprehensive metabolic 1998 panelon 03-09-2024 Albumin [Mass/Vol] 2.5 g/dL Low 3.5 - 5.0 g/dL [facility] ALP [Catalytic activity/Vol] 82 U/L 38 - 126 U/L [facility] ALT [Catalytic activity/Vol] 18 U/L 0 - 34 U/L [facility] Anion gap [Moles/Vol] 5 mmol/L 3 - 13 mmol/L [facility] AST [Catalytic activity/Vol] 17 U/L 15 - 46 U/L [facility] Bilirubin [Mass/Vol] 0.3 mg/dL 0.2 - 1 .3 mg/dL [facility] Calcium [Mass/Vol] 7.8 mg/dL Low 8.4 - 10. 4 mg/dL [facility] Chloride [Moles/Vol] 108 mmol/L High 98 - 10 7 mmol/L [facility] CO2 [Moles/Vol] 26 mmol/L 22 - 30 mmol/L [facility] Creatinine [Mass/Vol] 1.22 mg/dL High 0.52 - 1.04 mg/dL [facility] GFR/1.73 sq M.predicted MDRD (S/P/Bld) [Vol rate/Area] 49.0 mL/min/{1.73_m2} Low - PINF [facility] Comment on above: Calculation based on the Chronic Kidney Disease Epidemiology Collaboration (CKD-EPI) equation refit without adjustment for race Glucose [Mass/Vol] 147 mg/dL High 70 - 100 mg/dL [facility] Interpretation and review of laboratory results Abnormal [facility] Potassium [Moles/Vol] 4.6 mmol/L 3.5 - 5.1 mmol/L [facility] Protein [Mass/Vol] 4.8 g/dL Low 6.3 - 8.2 g/dL [facility] Sodium [Moles/Vol] 138 mmol/L 135 - 145 mmol/L [facility] Urea nitrogen [Mass/Vol] 26 mg/dL High 7 - 17 mg/dL [facility] Laboratory - Chemistry and C hemistry - challengeon 03-09-2024 Glucose [Mass/Vol] 152 mg/dL High 70 - 100 mg/dL [facility] No Panel Informationon 03-09 Interpretation and review of laboratory results Abnormal [facility] Performed by: [facility], [address] [place] [address] [place] [address] CLIA ID: [id number] [facility] Radiology Study observation (narrative) [facility] alth Bacteria identified Cx Nom ( U)Ordered By: Herrera Macedo on 03-08-2024 Interpretation and review of laboratory results Abnormal [facility] CARECOORDon 03-08-2024 [facility] Da rachana Note/Update Clinical Update: blood cultures from 03/07 resulted as normal this AM so, per 03/07 ID note, no further antimicrobial treatment is needed. No leukocytosis per this morning's labs. Discharge Plan: return to [facility] Discharge Barriers: clinical stability Chart reviewed. Messaged attending to check on clinical stability for discharge. Awaiting response back. Received response back stating, further discussion with ID yesterday they were recommending negative cultures x72 hours, so patient will not be discharged today. if labs are stable tomorrow, plan for discharge tomorrow. TCC will continue to follow. Normal [facility] CBC W Auto Differential pane l (Bld)Ordered By: Lindsay Mcintosh on 03-08-2024 Basophils (Bld) [#/Vol] 0.0 10*3/uL 0.0 - 0.2 10*3/uL [facility] Connotate Basophils/100 WBC (Bld) 0.4 % 0.0 - 2.0 % [facility] Eosinophils (Bld) [#/Vol] 0.3 10*3/uL 0.0 - 0.5 10*3/uL [facility] Eosinophils/100 WBC (Bld) 4.5 % 0.0 - 6.0 % [facility] Erythrocyte distribution width (RBC) [Ratio] 17.2 % High 11.5 - 15.0 % [facility] Hematocrit (Bld) [Volume fraction] 27.5 % Low 35.0 - 47.0 % [facility] Hemoglobin (Bld) [Mass/Vol] 8.3 g/dL Low 11.7 - 16.0 g/dL [facility] Immature granulocytes (Bld) [#/Vol] 0.1 10*3/uL High NINF - 0.1 10*3/uL [facility] Immature granulocytes/100 WBC (Bld) 1.0 % 0.0 - 2.0 % [facility] Interpretation and review of laboratory results Abnormal [facility] Lymphocytes (Bld) [#/Vol] 2.3 10*3/uL 1.0 - 4.3 10*3/uL [facility] Lymphocytes/100 WBC (Bld) 32.6 % 15.0 - 45.0 % [facility] MCH (RBC) [Entitic mass] 28.5 pg 26.0 - 34.0 pg [facility] MCHC (RBC) [Mass/Vol] 30.2 % Low 30.5 - 36.0 % [facility] MCV (RBC) [Entitic vol] 94.5 fL 77.0 - 99.0 fL [facility] Monocytes (Bld) [#/Vol] 0.8 10*3/uL 0.0 - 0.9 10*3/uL [facility] Monocytes/100 WBC (Bld) 11.7 % 5.0 - 13.0 % [facility] Neutrophils (Bld) [#/Vol] 3.5 10*3/uL 1.8 - 7.5 10*3/uL [facility] Neutrophils/100 WBC (Bld) 49.8 % 38.0 - 82.0 % [facility] Nucleated RBC/100 WBC (Bld) [Ratio] 0.0 % [facility] Platelet mean volume (Bld) [Entitic vol] 8.5 fL Low 9.0 - 12.7 fL [facility] Platelets (Bld) [#/Vol] 298 10*3/uL 140 - 440 10*3/uL [facility] RBC (Bld) [#/Vol] 2.91 10*6/uL Low 3.80 - 5.2 0 10*6/uL [facility] WBC (Bld) [#/Vol] 6.9 10*3/uL 3.6 - 10.7 10*3/uL [facility] CBC WITH AUTO DIFFERENTIALon 03-08-2024 Basophils (Bld) [#/Vol] 0.0 10*3/uL Normal 0.0-0.2 [facility] Comment on above: Performed By: #### L [id number] #### [employer]: STEVIE ELMORE ([id number]) [facility]PITALGURINDER ([facility]) [address] [place] [id number] [facility] Basophils/100 WBC (Bld) 0.4 % Normal 0.0-2.0 [facility] Comment on above: Performed By: #### L [id number] #### [employer]: STEVIE ELMORE ([id number]) [facility] [address] Eosinophils (Bld) [#/Vol] 0.3 10*3/uL Normal 0.0-0.5 [facility] Comment on above: Performed By: #### L [id number] #### [employer]: STEVIE ELMORE ([id number]) [facility] [address] Eosinophils/100 WBC (Bld) 4.5 % Normal 0.0-6.0 [facility] Comment on above: Performed By: #### L [id number] #### [employer]: STEVIE ELMORE ([id number]) [facility] ([facility]) [address] Erythrocyte distribution width (RBC) [Ratio] 17.2 % High 11.5-15.0 [facility] Comment on above: Performed By: #### L [id number] #### [employer]: STEVIE ELMORE ([id number]) [facility] ([facility]) [address] Hematocrit (Bld) [Volume fraction] 27.5 % Low 35.0-47.0 [facility] Comment on above: Performed By: #### L [id number] #### [employer]: STEVIE ELMORE ([id number]) [facility] ([facility]) [address] Hemoglobin (Bld) [Mass/Vol] 8.3 g/dL Low 11.7-16.0 [facility] Comment on above: Performed By: #### L [id number] #### [employer]: STEVIE ELMORE ([id number]) [facility] ([facility]) [address] IMMATURE GRANS % 1.0 % Normal 0.0-2.0 [facility] Comment on above: Performed By: #### L [id number] #### [employer]: STEVIE ELMORE ([id number]) [facility]OSPITALGiancarlo [facility] (SB[facility]) [address] IMMATURE GRANS ABSOLUTE 0.1 10*3/uL High <0.1 [facility] Comment on above: Performed By: #### L [id number] #### [employer]: STEVIE ELMORE ([id number]) [facility] ([facility]) [address] Lymphocytes (Bld) [#/Vol] 2.3 10*3/uL Normal 1.0-4.3 [facility] Comment on above: Performed By: #### L [id number] #### [employer]: STEVIE ELMORE ([id number]) [facility] [address] Lymphocytes/100 WBC (Bld) 32.6 % Normal 15.0-45.0 [facility] Comment on above: Performed By: #### L [id number] #### [employer]: STEVIE ELMORE ([id number]) [facility] ([facility]) [address] MCH (RBC) [Entitic mass] 28.5 pg Normal 26.0-34.0 [facility] Comment on above: Performed By: #### L [id number] #### [employer]: STEVIE ELMORE ([id number]) [facility] ([facility]) [address] MCHC 30.2 % Low 30.5-36.0 [facility] Comment on above: Performed By: #### L [id number] #### [employer]: STEVIE ELMORE ([id number]) [facility] ([facility]) [address] MCV (RBC) [Entitic vol] 94.5 fL Normal 77.0-99.0 [facility] Comment on above: Performed By: #### L [id number] #### [employer]: STEVIE ELMORE ([id number]) [facility] (SB[facility]) [address] Monocytes (Bld) [#/Vol] 0.8 10*3/uL Normal 0.0-0.9 [facility] Comment on above: Performed By: #### L [id number] #### [employer]: STEVIE ELMORE ([id number]) [facility]ITALA [facility]N (SBHLAB) [address] [place] [address] [place] Monocytes/100 WBC (Bld) 11.7 % Normal 5.0-13.0 [facility] Comment on above: Performed By: #### L [id number] #### [employer]: STEVIE ELMORE ([id number]) [facility] ([facility]) [address] NEUTROPHILS ABSOLUTE 3.5 10*3/uL Normal 1.8-7.5 [facility] Comment on above: Performed By: #### L [id number] #### [employer]: STEVIE ELMORE ([id number]) [facility] ([facility]) [address] Neutrophils/100 WBC (Bld) 49.8 % Normal 38.0-82.0 [facility] Comment on above: Performed By: #### L [id number] #### [employer]: STEVIE ELMORE ([id number]) [facility] ([facility]) [address] [place] [address] [place] NRBC 0.0 /100 WBCs Normal 0.0-2.0 [facility] Comment on above: Performed By: #### L [id number] #### [employer]: STEVIE ELMORE ([id number]) [facility] ([facility]) [address] [place] [address] [place] Platelet mean volume (Bld) [Entitic vol] 8.5 fL Low 9.0-12.7 [facility] Comment on above: Performed By: #### L [id number] #### [employer]: STEVIE ELMORE ([id number]) [facility]ITALA [facility] (SBHLAB) [address] Platelets (Bld) [#/Vol] 298 10*3/uL Normal 140-440 [facility] Comment on above: Performed By: #### L [id number] #### [employer]: STEVIE ELMORE ([id number]) [facility]ELR[facility]EL[facility] HOSPITALN (SBHLAB) [address] RBC (Bld) [#/Vol] 2.91 10*6/uL Low 3.80-5.20 [facility] Comment on above: Performed By: #### L [id number] #### [employer]: STEVIE ELMORE ([id number]) [facility] (SBHLAB) [address] WBC (Bld) [#/Vol] 6.9 10*3/uL Normal 3.6-10.7 [facility] Comment on above: Performed By: #### L [id number] #### [employer]: STEVIE ELMORE ([id number]) [facility] ([facility]) [address] COMPREHENSIVE METABOLIC PANE Wade 03-08-2024 Albumin [Mass/Vol] 2.6 g/dL Low 3.5-5.0 [facility] Comment on above: Performed By: #### L AB103, LAB17 #### [employer]: STEVIE ELMORE ([id number]) [facility] ([facility]) [address] ALP [Catalytic activity/Vol] 86 U/L Normal 38-126 [facility] Comment on above: Performed By: #### L AB103, LAB17 #### [employer]: STEVIE ELMORE ([id number]) [facility] ([facility]) [address] ALT [Catalytic activity/Vol] 21 U/L Normal 0-34 [facility] Comment on above: Performed By: #### L AB103, LAB17 #### [employer]: STEVIE ELMORE ([id number]) [facility]ITAL[facility]lo [place] (SBHLAB) [address] Anion gap [Moles/Vol] 1 mmol/L Low 3-13 [facility] Comment on above: Performed By: #### L AB103, LAB17 #### [employer]: STEVIE ELMORE ([id number]) [facility] ([facility]) [address] AST [Catalytic activity/Vol] 24 U/L Normal 15-46 [facility] Comment on above: Performed By: #### L AB103, LAB17 #### [employer]: STEVIE ELMORE ([id number]) [facility] (HLAB) [address] Bilirubin [Mass/Vol] 0.3 mg/dL Normal 0.2-1.3 [facility] Comment on above: Performed By: #### L AB103, LAB17 #### [employer]: STEVIE ELMORE ([id number]) [facility] (HLAB) [address] Calcium [Mass/Vol] 8.4 mg/dL Normal 8.4-10.4 [facility] Comment on above: Performed By: #### L AB103, LAB17 #### [employer]: STEVIE ELMORE ([id number]) [facility] (SBHL[facility]) [address] [place] [address] [place] Chloride [Moles/Vol] 108 mmol/L High 98-107 [facility] Comment on above: Performed By: #### L AB103, LAB17 #### [employer]: STEVIE ELMORE ([id number]) [facility] ([facility]) [address] [place] [address] [place] CO2 [Moles/Vol] 29 mmol/L Normal 22-30 [facility] Comment on above: Performed By: #### L AB103, LAB17 #### [employer]: STEVIE ELMORE ([id number]) [facility] [address] Creatinine [Mass/Vol] 1.24 mg/dL High 0.52-1.04 [facility] Comment on above: Performed By: #### L AB103, LAB17 #### [employer]: STEVIE ELMORE ([id number]) [facility] ([facility]) [address] [place] [address] [place] GLOMERULAR FILTRATION RATE ML/MIN/1.73 SQ M.PREDICTED 48.1 mL/min/1.73m*2 Low >60.0 [facility] Comment on above: Result Comment: Calc ulation based on the Chronic Kidney Disease Epidemiology Collaboration (CKD-EPI) equation refit without adjustment for race Performed By: #### L AB103, LAB17 #### [employer]: STEVIE ELMORE ([id number]) [facility] ([facility]) [address] Glucose [Mass/Vol] 75 mg/dL Normal 70-100 [facility] Comment on above: Performed By: #### L AB103, LAB17 #### [employer]: STEVIE ELMORE ([id number]) [facility] ([facility]) [address] Potassium [Moles/Vol] 4.2 mmol/L Normal 3.5-5.1 [facility] Comment on above: Performed By: #### L AB103, LAB17 #### [employer]: STEVIE ELMORE ([id number]) [facility] ([facility]) [address] [place] [address] [place] Protein [Mass/Vol] 5.2 g/dL Low 6.3-8.2 [facility] Comment on above: Performed By: #### L AB103, LAB17 #### [employer]: STEVIE ELMORE ([id number]) [facility] ([facility]) [address] [place] [address] [place] Sodium [Moles/Vol] 138 mmol/L Normal 135-145 [facility] Comment on above: Performed By: #### L AB103, LAB17 #### [employer]: STEVIE ELMORE ([id number]) [facility] ([facility]) [address] Urea nitrogen [Mass/Vol] 23 mg/dL High 7-17 [facility] Comment on above: Performed By: #### L AB103, LAB17 #### [employer]: STEVIE ELMORE ([id number]) [facility] ([facility]) [address] Comprehensive metabolic 1998 panelon 03-08-2024 Albumin [Mass/Vol] 2.6 g/dL Low 3.5 - 5.0 g/dL [facility] ALP [Catalytic activity/Vol] 86 U/L 38 - 126 U/L [facility] ALT [Catalytic activity/Vol] 21 U/L 0 - 34 U/L [facility] Anion gap [Moles/Vol] 1 mmol/L Low 3 - 13 mmol/L [facility] AST [Catalytic activity/Vol] 24 U/L 15 - 46 U/L [facility] Bilirubin [Mass/Vol] 0.3 mg/dL 0.2 - 1 .3 mg/dL [facility] Calcium [Mass/Vol] 8.4 mg/dL 8.4 - 10. 4 mg/dL [facility] Chloride [Moles/Vol] 108 mmol/L High 98 - 10 7 mmol/L [facility] CO2 [Moles/Vol] 29 mmol/L 22 - 30 mmol/L [facility] Creatinine [Mass/Vol] 1.24 mg/dL High 0.52 - 1.04 mg/dL [facility] GFR/1.73 sq M.predicted MDRD (S/P/Bld) [Vol rate/Area] 48.1 mL/min/{1.73_m2} Low - PINF [facility] Comment on above: Calculation based on the Chronic Kidney Disease Epidemiology Collaboration (CKD-EPI) equation refit without adjustment for race Glucose [Mass/Vol] 75 mg/dL 70 - 100 mg/dL [facility] Interpretation and review of laboratory results Abnormal [facility] Potassium [Moles/Vol] 4.2 mmol/L 3.5 - 5.1 mmol/L [facility] Protein [Mass/Vol] 5.2 g/dL Low 6.3 - 8.2 g/dL [facility] Sodium [Moles/Vol] 138 mmol/L 135 - 145 mmol/L [facility] Urea nitrogen [Mass/Vol] 23 mg/dL High 7 - 17 mg/dL [facility] Laboratory - Chemistry and C hemistry - challengeon 03-08-2024 Glucose [Mass/Vol] 208 mg/dL High 70 - 100 mg/dL [facility] Glucose [Mass/Vol] 212 mg/dL High 70 - 100 mg/dL [facility] Glucose [Mass/Vol] 81 mg/dL 70 - 100 mg/dL [facility] Glucose [Mass/Vol] 74 mg/dL 70 - 100 mg/dL [facility] Laboratory - Microbiology an d Antimicrobial susceptibilityOrdered By: Herrera Macedo on 03-08-2024 Bacteria identified Cx Nom (U) 50,000-90,000 CFU/mL Enterococcus raffinosus Abnormal [facility] Comment on above: Susceptibility testi ng performed only upon request for cultures with multiple types of microorganisms below 100,000 CFU/ml. Bacteria identified Cx Nom (U) 10,000-50,000 CFU/mL Jose albicans Abnormal [facility] No Panel Informationon 03-08 Interpretation and review of laboratory results Abnormal [facility] Performed by: [facility], [address] [place] [address] CLIA ID: [id number] [facility] Interpretation and review of laboratory results Abnormal [facility] Performed by: [facility], [address] [place] [address] CLIA ID: [id number] [facility] Interpretation and review of laboratory results Normal [facility] Performed by: [facility], [address] [place] [address] CLIA ID: [id number] [facility] Interpretation and review of laboratory results Normal [facility] Performed by: [facility], [address] [place] [address] CLIA ID: [id number] [facility] Radiology Study observation (narrative) [facility] Radiology Study observation (narrative) [facility] Radiology Study observation (narrative) [facility] Radiology Study observation (narrative) [facility] BASIC METABOLIC PANELon 05-1 Anion gap [Moles/Vol] 5 mmol/L Normal 3-13 [facility] Comment on above: Performed By: #### L AB103, LAB17 #### [employer]: STEVIE ELMORE ([id number]) [facility] [address] Calcium [Mass/Vol] 8.7 mg/dL Normal 8.4-10.4 [facility] Comment on above: Performed By: #### L AB103, LAB17 #### [employer]: STEVIE ELMORE ([id number]) [facility] ([facility]) [address] Chloride [Moles/Vol] 106 mmol/L Normal 98-107 [facility] Comment on above: Performed By: #### L AB103, LAB17 #### [employer]: STEVIE ELMORE ([id number]) [facility] [address] CO2 [Moles/Vol] 27 mmol/L Normal 22-30 [facility] Comment on above: Performed By: #### L AB103, LAB17 #### [employer]: STEVIE ELMORE ([id number]) [facility] [address] Creatinine [Mass/Vol] 1.12 mg/dL High 0.52-1.04 [facility] Comment on above: Performed By: #### L AB103, LAB17 #### [employer]: STEVIE ELMORE ([id number]) [facility] ([facility] [address] [place] [address] [place] GLOMERULAR FILTRATION RATE ML/MIN/1.73 SQ M.PREDICTED 54.3 mL/min/1.73m*2 Low >60.0 [facility] Comment on above: Result Comment: Calc ulation based on the Chronic Kidney Disease Epidemiology Collaboration (CKD-EPI) equation refit without adjustment for race Performed By: #### L AB103, LAB17 #### [employer]: STEVIE ELMORE ([id number]) [facility] ([facility]) [address] Glucose [Mass/Vol] 75 mg/dL Normal 70-100 [facility] Comment on above: Performed By: #### L AB103, LAB17 #### [employer]: STEVIE ELMORE ([id number]) [facility] ([facility]) [address] Potassium [Moles/Vol] 4.0 mmol/L Normal 3.5-5.1 [facility] Comment on above: Performed By: #### L AB103, LAB17 #### [employer]: STEVIE ELMORE ([id number]) [facility] ([facility]) [address] Sodium [Moles/Vol] 137 mmol/L Normal 135-145 [facility] Comment on above: Performed By: #### L AB103, LAB17 #### [employer]: STEVIE ELMORE ([id number]) [facility] ([facility]) [address] [place] [address] [place] Urea nitrogen [Mass/Vol] 21 mg/dL High 7-17 [facility] Comment on above: Performed By: #### L AB103, LAB17 #### [employer]: STEVIE ELMORE ([id number]) [facility] ([facility]) [address] BLOOD CULTUREon 03-07-2024 Bacteria identified Cx Nom (Bld) BLOOD CULTURE Reference No growth at 5 days ORDER COMMENTS: Blood Collection Site: Right Forearm [ S = SUSCEPTIBLE R = RESISTANT I = INTERMEDIATE S-DD = Susceptible-dose dependent NS = Non-susceptible NO = No Interpretation ] Normal [facility] Comment on above: Performed By: #### L AB462 ####[employer]: SILVIA FRENCH ([id number])[facility] ([facility])[address] [place] [address] Bacteria identified Cx Nom (Bld) BLOOD CULTURE Reference No growth at 5 days ORDER COMMENTS: Blood Collection Site: Right Wrist [ S = SUSCEPTIBLE R = RESISTANT I = INTERMEDIATE S-DD = Susceptible-dose dependent NS = Non-susceptible NO = No Interpretation ] Normal [facility] Comment on above: Performed By: #### L AB462 ####[employer]: SILVIA FRENCH ([id number])[facility] [place] [address] Basic metabolic 1998 panelon 03-07-2024 Anion gap [Moles/Vol] 5 mmol/L 3 - 13 mmol/L [facility] Calcium [Mass/Vol] 8.7 mg/dL 8.4 - 10. 4 mg/dL [facility] Chloride [Moles/Vol] 106 mmol/L 98 - 10 7 mmol/L [facility] CO2 [Moles/Vol] 27 mmol/L 22 - 30 mmol/L [facility] Creatinine [Mass/Vol] 1.12 mg/dL High 0.52 - 1.04 mg/dL [facility] GFR/1.73 sq M.predicted MDRD (S/P/Bld) [Vol rate/Area] 54.3 mL/min/{1.73_m2} Low - PINF [facility] Comment on above: Calculation based on the Chronic Kidney Disease Epidemiology Collaboration (CKD-EPI) equation refit without adjustment for race Glucose [Mass/Vol] 75 mg/dL 70 - 100 mg/dL [facility] Interpretation and review of laboratory results Abnormal [facility] Potassium [Moles/Vol] 4.0 mmol/L 3.5 - 5.1 mmol/L [facility] Sodium [Moles/Vol] 137 mmol/L 135 - 145 mmol/L [facility] Urea nitrogen [Mass/Vol] 21 mg/dL High 7 - 17 mg/dL [facility] CARECOORDon 03-07-[address] Talamantes's note, anticipated dc is for 03/08/24. Pt transport is set in WILL CALL with [employer] for 03/08/24. Normal [facility] CBC W Auto Differential pane l (Bld)on 03-07-2024 Basophils (Bld) [#/Vol] 0.1 10*3/uL 0.0 - 0.2 10*3/uL [facility] Basophils/100 WBC (Bld) 0.6 % 0.0 - 2.0 % [facility] Eosinophils (Bld) [#/Vol] 0.3 10*3/uL 0.0 - 0.5 10*3/uL [facility] Eosinophils/100 WBC (Bld) 3.6 % 0.0 - 6.0 % [facility] Erythrocyte distribution width (RBC) [Ratio] 16.8 % High 11.5 - 15.0 % [facility] Hematocrit (Bld) [Volume fraction] 26.5 % Low 35.0 - 47.0 % [facility] Hemoglobin (Bld) [Mass/Vol] 8.4 g/dL Low 11.7 - 16.0 g/dL [facility] Immature granulocytes (Bld) [#/Vol] 0.1 10*3/uL High NINF - 0.1 10*3/uL [facility] Immature granulocytes/100 WBC (Bld) 0.9 % 0.0 - 2.0 % [facility] Interpretation and review of laboratory results Abnormal [facility] Lymphocytes (Bld) [#/Vol] 2.1 10*3/uL 1.0 - 4.3 10*3/uL [facility] Lymphocytes/100 WBC (Bld) 26.3 % 15.0 - 45.0 % [facility] MCH (RBC) [Entitic mass] 29.0 pg 26.0 - 34.0 pg [facility] MCHC (RBC) [Mass/Vol] 31.7 % 30.5 - 36.0 % [facility] MCV (RBC) [Entitic vol] 91.4 fL 77.0 - 99.0 fL [facility] Monocytes (Bld) [#/Vol] 0.9 10*3/uL 0.0 - 0.9 10*3/uL [facility] Monocytes/100 WBC (Bld) 11.0 % 5.0 - 13.0 % [facility] Neutrophils (Bld) [#/Vol] 4.7 10*3/uL 1.8 - 7.5 10*3/uL [facility] Neutrophils/100 WBC (Bld) 57.6 % 38.0 - 82.0 % [facility] Nucleated RBC/100 WBC (Bld) [Ratio] 0.0 % [facility] Platelet mean volume (Bld) [Entitic vol] 8.4 fL Low 9.0 - 12.7 fL [facility] Platelets (Bld) [#/Vol] 312 10*3/uL 140 - 440 10*3/uL [facility] RBC (Bld) [#/Vol] 2.90 10*6/uL Low 3.80 - 5.2 0 10*6/uL [facility] WBC (Bld) [#/Vol] 8.1 10*3/uL 3.6 - 10.7 10*3/uL [facility] CBC WITH AUTO DIFFERENTIALon 03-07-2024 Basophils (Bld) [#/Vol] 0.1 10*3/uL Normal 0.0-0.2 [facility] Comment on above: Performed By: #### L AB103, LAB17 #### [employer]: STEVIE ELMORE ([id number]) [facility] (SB[facility]) [address] Basophils/100 WBC (Bld) 0.6 % Normal 0.0-2.0 [facility] Comment on above: Performed By: #### L AB103, LAB17 #### [employer]: STEVIE ELMORE ([id number]) [facility] [address] Eosinophils (Bld) [#/Vol] 0.3 10*3/uL Normal 0.0-0.5 [facility] Comment on above: Performed By: #### L AB103, LAB17 #### [employer]: STEVIE ELMORE ([id number]) [facility] ([facility]) [address] Eosinophils/100 WBC (Bld) 3.6 % Normal 0.0-6.0 [facility] Comment on above: Performed By: #### L AB103, LAB17 #### [employer]: STEVIE ELMORE ([id number]) [facility] (SBAB) [address] [place] [address] [place] Erythrocyte distribution width (RBC) [Ratio] 16.8 % High 11.5-15.0 [facility] Comment on above: Performed By: #### L AB103, LAB17 #### [employer]: STEVIE PUTNAMPERICO ([id number]) [facility] ([facility] [address] Hematocrit (Bld) [Volume fraction] 26.5 % Low 35.0-47.0 [facility] Comment on above: Performed By: #### L AB103, LAB17 #### [employer]: STEVIE MOYAMARCELOPERICO ([id number]) [facility] (HLAB) [address] Hemoglobin (Bld) [Mass/Vol] 8.4 g/dL Low 11.7-16.0 [facility] Comment on above: Performed By: #### L AB103, LAB17 #### [employer]: STEVIE ELMORE ([id number]) [facility] [address] IMMATURE GRANS % 0.9 % Normal 0.0-2.0 [facility] Comment on above: Performed By: #### L MARK, LAB17 #### [employer]: STEVIE ELMORE ([id number]) [facility] [address] IMMATURE GRANS ABSOLUTE 0.1 10*3/uL High <0.1 [facility] Comment on above: Performed By: #### L AB103, LAB17 #### [employer]: STEVIE ELMORE ([id number]) [facility] [address] Lymphocytes (Bld) [#/Vol] 2.1 10*3/uL Normal 1.0-4.3 [facility] Comment on above: Performed By: #### L AB103, LAB17 #### [employer]: STEVIE ELMORE ([id number]) [facility] ([facility]) [address] Lymphocytes/100 WBC (Bld) 26.3 % Normal 15.0-45.0 [facility] Comment on above: Performed By: #### L AB103, LAB17 #### [employer]: STEVIE ELMORE ([id number]) [facility] [address] MCH (RBC) [Entitic mass] 29.0 pg Normal 26.0-34.0 [facility] Comment on above: Performed By: #### L AB103, LAB17 #### [employer]: STEVIE ELMORE ([id number]) [facility] ([facility]) [address] MCHC 31.7 % Normal 30.5-36.0 [facility] Comment on above: Performed By: #### L AB103, LAB17 #### [employer]: STEVIE ELMORE ([id number]) [facility] [address] MCV (RBC) [Entitic vol] 91.4 fL Normal 77.0-99.0 [facility] Comment on above: Performed By: #### L AB103, LAB17 #### [employer]: STEVIE ELMORE ([id number]) [facility] ([facility] [address] Monocytes (Bld) [#/Vol] 0.9 10*3/uL Normal 0.0-0.9 [facility] Comment on above: Performed By: #### L AB103, LAB17 #### [employer]: STEVIE ELMORE ([id number]) [facility] ([facility] [address] Monocytes/100 WBC (Bld) 11.0 % Normal 5.0-13.0 [facility] Comment on above: Performed By: #### L AB103, LAB17 #### [employer]: STEVIE ELMORE ([id number]) [facility] ([facility] [address] NEUTROPHILS ABSOLUTE 4.7 10*3/uL Normal 1.8-7.5 [facility] Comment on above: Performed By: #### L AB103, LAB17 #### [employer]: STEVIE ELMORE ([id number]) [facility] ([facility]) [address] Neutrophils/100 WBC (Bld) 57.6 % Normal 38.0-82.0 [facility] Comment on above: Performed By: #### L AB103, LAB17 #### [employer]: STEVIE ELMORE ([id number]) [facility] ([facility]) [address] NRBC 0.0 /100 WBCs Normal 0.0-2.0 [facility] Comment on above: Performed By: #### L AB103, LAB17 #### [employer]: STEVIE ELMORE ([id number]) [facility] ([facility]) [address] Platelet mean volume (Bld) [Entitic vol] 8.4 fL Low 9.0-12.7 [facility] Comment on above: Performed By: #### L AB103, LAB17 #### [employer]: STEVIE ELMORE ([id number]) [facility] ([facility]) [address] [place] [address] [place] Platelets (Bld) [#/Vol] 312 10*3/uL Normal 140-440 [facility] Comment on above: Performed By: #### L AB103, LAB17 #### [employer]: STEVIE ELMORE ([id number]) [facility] ([facility]) [address] [place] [address] [place] RBC (Bld) [#/Vol] 2.90 10*6/uL Low 3.80-5.20 [facility] Comment on above: Performed By: #### L AB103, LAB17 #### [employer]: STEVIE ELMORE ([id number]) [facility] ([facility]) [address] [place], [place] [id number] [place] [address] WBC (Bld) [#/Vol] 8.1 10*3/uL Normal 3.6-10.7 [facility] Comment on above: Performed By: #### L AB103, LAB17 #### [employer]: STEVIE ELMORE ([id number]) [facility] ([facility]) [address] [place] [id number] [place] [address] Laboratory - Chemistry and C hemistry - challengeon 03-07-2024 Glucose [Mass/Vol] 112 mg/dL High 70 - 100 mg/dL [facility] Glucose [Mass/Vol] 121 mg/dL High 70 - 100 mg/dL [facility] Glucose [Mass/Vol] 73 mg/dL 70 - 100 mg/dL [facility] Glucose [Mass/Vol] 86 mg/dL 70 - 100 mg/dL [facility] Glucose [Mass/Vol] 76 mg/dL 70 - 100 mg/dL [facility] No Panel Informationon 03-07 Interpretation and review of laboratory results Abnormal [facility] Performed by: [facility], [address] [place] [address] CLIA ID: [id number] [facility] Interpretation and review of laboratory results Abnormal [facility] Performed by: [facility], [address] [place] [address] CLIA ID: [id number] [facility] Interpretation and review of laboratory results Normal [facility] Performed by: [facility], [address] [place] [address] CLIA ID: [id number] [facility] Interpretation and review of laboratory results Normal [facility] Performed by: [facility], [address] [place] [address] CLIA ID: [id number] [facility] Interpretation and review of laboratory results Normal [facility] Performed by: [facility], [address] [place] [address] CLIA ID: [id number] [facility] Radiology Study observation (narrative) [facility] Radiology Study observation (narrative) [facility] Radiology Study observation (narrative) [facility] Rad[facility] Study observation (narrative) Gloria escalona Radiology Study observation (narrative) [facility] Progress Noteon 03-07-2024 Progress Note Nutrition rescreen completed. Patient assigned a level 1 for nutrition care. Normal [facility] Progress Note OCCUPATIONAL THERAPY [facility] Name/MRN: Kimberly Patel ([id number]) Date: 03/07/2024 Chart review completed. Per previous documentation and confirmation from CM documentation, this patient is a senior care resident at a facility and does not require auth to return. This patient is a total assist at baseline for ADLs, mohamud lift for for transfers and non-ambulatory. Pt is at her functional baseline and has no skilled OT needs. Will complete current OT order at this time. Nilsa Vieira, OT [facility] Progress Note PHYSICAL THERAPY [facility] Name/MRN: Kimberly Patel ([id number]) Date: 03/07/2024 Chart review completed. Per previous documentation and confirmation from CM documentation, this patient is a senior care resident at a facility and does not require auth to return. This patient is a total assist at baseline for ADLs, mohamud lift for for transfers and non-ambulatory. Pt is at her functional baseline and has no skilled PT needs. Will complete current PT order at this time. Jaky Hayes, PT [facility] CARECOORDon 03-06-2024 [place] Care Managment Initi al Assessment Date: 03/06/2024 Patient Name: Kimberly Patel : 1955 Patient Information Source of Information: (recent assessment 02/22/24) Name/Contact Information: ALEXANDRO COTE [phone] DAUGHTER Cognition/Language: Confused at baseline Permission given to speak with patient lead generation representative/caregive r as indicated: Yes Confirmation of Payer with patient/family: Yes [facility] [place]: No Confirmation of Primary Care Physician: Confirmed PCP Name: DR. QUICK Seen in last 2 years?: Yes Primary Caregiver: Other (Comment) If assistance needed, confirmed caregiver ready, willing and able to care for patient at discharge: Yes Confirmed with: STAFF AT [facility] Living Arrangements Current Residence: ([facility]) Number of Floors 1 Number of Entry Steps: (LEVEL ENTRY) Bed/Bath Levels: Both first floor Facility: Longterm/Residental Care Facility Name: [facility] Plan to Return: Yes Lives with: Other (Comment) (ECF) Support Systems: Children, Comments (Other) (ECF STAFF) Activities of Daily Living Ambulation: Total Care Bathing/Dressing: Total Care Elimination/Continence/ Toileting: Total Care Feeding: asst .set up Who Assists with Activities of Daily Living: ECF STAFF Instrumental Activities of Daily Living Prescription Coverage: Yes Pharmacy Used: [facility] STAFF Medication Management: Medication dispenser Who assists with medication securing and setup?: [facility] Transportation/Shopping : Assistance Provider Transportation/Shopping Assistance Provider Name: PAYOR PROVIDED TRANSPORT Transportation Mode: Payer provided transport service Needs Assistance with Transportation at Discharge: Yes Meal Preparation: Assistance Provider Meal Prep Assistance Provider Name: [facility] Laundry/Cleaning: Assistance Provider Laundry/Cleaning Assistance Provider Name: [facility] Finances/Bill Paying: Assistance Provider Finances/Bill Payer Assistance Provider Name: DAUGHTER Communication: Independent, Emergency Call System Types of Care Services/Equipment Utilized Care Services: Dialysis Type: NA Durable Medical Equipment: Mohamud Lift, Hospital Bed, oxygen, Patient's Goal/Discharge Plan Patient expects to be discharged to: RETURN TO [facility] Discharge Planning Actions: Continue to follow Patient's Choice Rights and [employer] and Collaborative Relationships Disclosed as Indicated for Post-Acute Care: NA Interdisciplinary Team Engagement: Social Work Referral for: Additional Information: Inpatient status from [facility] with altered mental status. Recent hospitalization for UTI and is receiving iv invanz at long term via picc line. ID consulted. Repeat blood culture in am, bs ac and hs with ss coverage, daily labs, us of right upper ext negative for DVT. Anny call and speak with nurse Jenna at [facility] patient is mohamud lift at facility, is able to feed herself, takes pills in applesauce, is diabetic and ss coverage. She believes patient requires oxygen at the facility. Patient is mcfp at facility and Jenna believes has been there for about a year. Tentative discharge plan is to return to facility when medically stable. Anyn speak with patient's daughter Alexandro and she is agreeable [facility]. . Vanessa Vu RN Normal [facility] COMPLETE URINALYSISon 2023 BACTERIA (#/HPF) IN URINE Few Abnormal Negative [facility] Comment on above: Order Comment: Do no t cancel, repeat ordered on purpose Straight cath Performed By: #### L AB347 #### [employer]: STEVIE ELMORE ([id number]) [facility] [address] BILIRUBIN, TOTAL PRESENCE IN URINE Negative Normal Negative [facility] Comment on above: Order Comment: Do no t cancel, repeat ordered on purpose Straight cath Performed By: #### L AB347 #### [employer]: STEVIE ELMORE ([id number]) [facility] ([facility]) [address] Clarity (U) Clear Normal Clear [facility] Comment on above: Order Comment: Do no t cancel, repeat ordered on purpose Straight cath Performed By: #### L [id number] #### [employer]: STEVIE ELMORE ([id number]) [facility] ([facility]) [address] Color (U) Yellow Normal Lt. Yellow [facility] Comment on above: Order Comment: Do no t cancel, repeat ordered on purpose Straight cath Performed By: #### L AB347 #### [employer]: STEVIE ELMORE ([phone]) [facility] [address] GLUCOSE (MG/DL) IN URINE Normal Normal Normal (<70) [facility] Comment on above: Order Comment: Do no t cancel, repeat ordered on purpose Straight cath Performed By: #### L AB347 #### [employer]: STEVIE ELMORE ([id number]) [facility] [address] HEMOGLOBIN PRESENCE IN URINE Negative Normal Negative [facility] Comment on above: Order Comment: Do no t cancel, repeat ordered on purpose Straight cath Performed By: #### L AB347 #### [employer]: STEVIE ELMORE ([id number]) [facility] ([facility]) [address] Ketones Ql (U) Negative Normal Negative [facility] Comment on above: Order Comment: Do no t cancel, repeat ordered on purpose Straight cath Performed By: #### L AB347 #### [employer]: STEVIE ELMORE ([id number]) [facility] ([facility]) [address] LEUKOCYTE ESTERASE PRESENCE IN URINE BY TEST STRIP 75 Ha/uL Abnormal Negative [facility] Comment on above: Order Comment: Do no t cancel, repeat ordered on purpose Straight cath Performed By: #### L AB347 #### [employer]: STEVIE ELMORE ([id number]) [facility] ([facility]) [address] [place] [address] [place] MUCUS (#/LPF) IN URINE SEDIMENT Few Normal Negative [facility] Comment on above: Order Comment: Do no t cancel, repeat ordered on purpose Straight cath Performed By: #### L AB347 #### [employer]: STEVIE ELMORE ([id number]) [facility] ([facility]) [address] NITRITE PRESENCE IN URINE Negative Normal Negative [facility] Comment on above: Order Comment: Do no t cancel, repeat ordered on purpose Straight cath Performed By: #### L AB347 #### [employer]: STEVIE ELMORE ([id number]) [facility] ([facility]) [address] [place] [address] [place] pH (U) 5.5 [pH] Normal 5.0-8.0 [facility] Comment on above: Order Comment: Do no t cancel, repeat ordered on purpose Straight cath Performed By: #### L AB347 #### [employer]: STEVIE ELMORE ([id number]) [facility] ([facility]) [address] Protein (U) [Mass/Vol] 10 mg/dL Abnormal Negative [facility] Comment on above: Order Comment: Do no t cancel, repeat ordered on purpose Straight cath Performed By: #### L AB347 #### [employer]: STEVIE ELMORE ([id number]) [facility] [address] RBC (#/HPF) IN URINE SEDIMENT 3-5 Abnormal 0-2 [facility] Comment on above: Order Comment: Do no t cancel, repeat ordered on purpose Straight cath Performed By: #### L AB347 #### [employer]: STEVIE ELMORE ([id number]) [facility] [address] Specific gravity (U) [Rel density] 1.016 Normal 1.005-1.030 [facility] Comment on above: Order Comment: Do no t cancel, repeat ordered on purpose Straight cath Performed By: #### L AB347 #### [employer]: STEVIE ELMORE ([id number]) [facility] [address] SQUAMOUS EPITHELIAL CELLS (#/HPF) IN URINE SEDIMENT 6-10 Abnormal 3-5 [facility] Comment on above: Order Comment: Do no t cancel, repeat ordered on purpose Straight cath Performed By: #### L AB347 #### [employer]: STEVIE ELMORE ([id number]) [facility] [address] [place] [address] [place] UROBILINOGEN (MG/DL) IN URINE Normal Normal Normal (0-1) [facility] Comment on above: Order Comment: Do no t cancel, repeat ordered on purpose Straight cath Performed By: #### L AB347 #### [employer]: STEVIE ELMORE ([id number]) [facility] ([facility]) [address] [place] [address] [place] WBC (LEUKOCYTE) (#/HPF) IN URINE SEDIMENT 26-50 Abnormal 0-5 [facility] Comment on above: Order Comment: Do no t cancel, repeat ordered on purpose Straight cath Performed By: #### L AB347 #### [employer]: STEVIE ELMORE ([id number]) [facility] [address] HEAD WO IV CONTRASTon CT [...] Date/Time: 03/06/2024 4:28 PM EDT AMS Normal [facility] CT Head WO contraston 2023 Limited study. No acute intracranial abnormalities or significant change from the prior study. Report Dictated on Electronically Signed By: Frankie Patel MD Electronically Signed Date/Time: 03/06/2024 4:28 PM EDT [facility] Patient Name: KIMBERLY PATEL : 1955 [...] mastoid effusions. Persistent sphenoid sinus opacification bilaterally. [facility] Frankie Patel M D - 03/06/2024 Patient Name: [facility]IM[facility]LY PATEL : 1955 [id number] Exam Date/Time: 03/06/2024 16:10 Procedure: CT HEAD [...] Electronically Signed Date/Time: 03/06/2024 4:28 PM EDT [facility] Radiology Study observation (narrative) [facility] Head WO contrastOrdered B y: Frankie Patel on 03-06-2024 [facility] Connotate Work Phone: Consulton 03-06-2024 Consult [facility] - Infectious Diseases Attending [...] appeared non-toxic. She was recently admitted at [facility] from 02/20- 02/28/24 due to severe [...] History: Diagnosis Date CHF (congestive heart failure) ([facility]) COPD (chronic obstructive pulmonary disease) ([facility]) Diabetes mellitus ([facility]) Past Surgical History: Past Surgical History: Procedure [...] 0.4 mg IntraVENous q5 min PRN Eboni Fletchre MD oxyCODONE-acetaminophen (Percocet) 5-325 MG per tablet [...] education: N (more content not included)... Normal [facility] Laboratory - Chemistry and C hemistry - challengeon 03-06-2024 Glucose [Mass/Vol] 165 mg/dL High 70 - 100 mg/dL [facility] Glucose [Mass/Vol] 126 mg/dL High 70 - 100 mg/dL [facility] Glucose [Mass/Vol] 147 mg/dL High 70 - 100 mg/dL [facility] Glucose [Mass/Vol] 160 mg/dL High 70 - 100 mg/dL [facility] Laboratory - Chemistry and C hemistry - challengeOrdered By: Sejal Gr on 03-06-2024 Glucose [Mass/Vol] 160 mg/dL [facility] No Panel Informationon 03-06 Interpretation and review of laboratory results Abnormal [facility] by: [facility], [address] [facility] [place] [address] CLIA ID: [id number] [facility] Interpretation and review of laboratory results Abnormal [facility] Performed by: [facility], [address] [facility] [place] [address] CLIA ID: [id number] [facility] No evidence of acute deep vein thrombosis [...] showed phasic, spontaneous and somewhat pulsatile flow. [employer] Details A carver scale, color Doppler imaging, [...] Interpretation and review of laboratory results Abnormal [facility] Performed by: [facility], [address] [facility] [address] CLIA ID: [id number] [facility] Interpretation and review of laboratory results Abnormal [facility] Performed by: [facility], [address] [place] [address] CLIA ID: [id number] [facility] Radiology Study observation (narrative) [facility] Rad[facility] Study observation (narrative) [facility] Study observation (narrative) [facility] Rad[facility] Study observation (narrative) [facility] No Panel InformationOrdered By: Sejal Gr on 03-06-2024 Interpretation and review of laboratory results Normal [facility] Radiology Study observation (narrative) [facility] Urinalysis complete panel (U )Ordered By: Hema Fernandez on 03-06-2024 Bacteria LM.HPF (Urine sed) [#/Area] Few Abnormal Negative /HPF [facility] Bilirubin Ql (U) Negative Negative mg/dL [facility] Clarity (U) Clear Clear [facility] Color (U) Yellow Lt. Yellow [facility] Epithelial cells.squamous LM.HPF (Urine sed) [#/Area] 6-10 Abnormal [facility] h Glucose Ql (U) Normal Normal (<70) mg/dL [facility] Hemoglobin Ql (U) Negative Negative mg/dL [facility] Interpretation and review of laboratory results Abnormal [facility] Ketones (U) [Mass/Vol] Negative Negat rhonda mg/dL [facility] Leukocyte esterase Test strip Ql (U) 75 Abnormal Negative Ha/uL [facility] Mucus LM.HPF (Urine sed) [#/Area] Few Negative /LPF [facility] Nitrite Ql (U) Negative Negative [facility] th pH (U) 5.5 [pH] 5.0 - 8.0 pH [facility] Protein (U) [Mass/Vol] 10 mg/dL Abnormal Negative [facility] RBC LM.HPF (Urine sed) [#/Area] 3-5 Abnormal [facility] Specific gravity (U) [Rel density] 1.016 1.005 - 1.030 [facility] Urobilinogen (U) [Mass/Vol] Normal Normal (0-1) mg/dL [facility] WBC LM.HPF (Urine sed) [#/Area] 26-50 Abnormal [facility] CBC W Auto Differential pane l (Bld)on 03-05-2024 Basophils (Bld) [#/Vol] 0.1 10*3/uL 0.0 - 0.2 10*3/uL [facility] Basophils/100 WBC (Bld) 0.7 % 0.0 - 2.0 % [facility] Eosinophils (Bld) [#/Vol] 0.3 10*3/uL 0.0 - 0.5 10*3/uL [facility] Eosinophils/100 WBC (Bld) 3.8 % 0.0 - 6.0 % [facility] Erythrocyte distribution width (RBC) [Ratio] 16.5 % High 11.5 - 15.0 % [facility] Hematocrit (Bld) [Volume fraction] 29.7 % Low 35.0 - 47.0 % [facility] Hemoglobin (Bld) [Mass/Vol] 9.3 g/dL Low 11.7 - 16.0 g/dL [facility] Immature granulocytes (Bld) [#/Vol] 0.2 10*3/uL High NINF - 0.1 10*3/uL [facility] Immature granulocytes/100 WBC (Bld) 2.2 % High 0.0 - 2.0 % [facility] Interpretation and review of laboratory results Abnormal [facility] Lymphocytes (Bld) [#/Vol] 1.7 10*3/uL 1.0 - 4.3 10*3/uL [facility] Lymphocytes/100 WBC (Bld) 20.0 % 15.0 - 45.0 % [facility] MCH (RBC) [Entitic mass] 29.2 pg 26.0 - 34.0 pg [facility] MCHC (RBC) [Mass/Vol] 31.3 % 30.5 - 36.0 % [facility] MCV (RBC) [Entitic vol] 93.1 fL 77.0 - 99.0 fL [facility] Monocytes (Bld) [#/Vol] 0.7 10*3/uL 0.0 - 0.9 10*3/uL [facility] Monocytes/100 WBC (Bld) 8.1 % 5.0 - 13.0 % [facility] Neutrophils (Bld) [#/Vol] 5.7 10*3/uL 1.8 - 7.5 10*3/uL [facility] Neutrophils/100 WBC (Bld) 65.2 % 38.0 - 82.0 % [facility] Nucleated RBC/100 WBC (Bld) [Ratio] 0.0 % [facility] Platelet mean volume (Bld) [Entitic vol] 8.4 fL Low 9.0 - 12.7 fL [facility] Platelets (Bld) [#/Vol] 342 10*3/uL 140 - 440 10*3/uL [facility] RBC (Bld) [#/Vol] 3.19 10*6/uL Low 3.80 - 5.2 0 10*6/uL [facility] WBC (Bld) [#/Vol] 8.7 10*3/uL 3.6 - 10.7 10*3/uL [facility] CBC WITH AUTO DIFFERENTIALon 03-05-2024 Basophils (Bld) [#/Vol] 0.1 10*3/uL Normal 0.0-0.2 [facility] Comment on above: Performed By: #### L AB103, LAB17 #### [employer]: STEVIE ELMORE ([id number]) [facility] [address] Basophils/100 WBC (Bld) 0.7 % Normal 0.0-2.0 [facility] Comment on above: Performed By: #### L AB103, LAB17 #### [employer]: STEVIE ELMORE ([id number]) [facility] [place] [facility] [address] Eosinophils (Bld) [#/Vol] 0.3 10*3/uL Normal 0.0-0.5 [facility] Comment on above: Performed By: #### L AB103, LAB17 #### [employer]: STEVIE ELMORE ([id number]) [facility] [place] [facility] [address] Eosinophils/100 WBC (Bld) 3.8 % Normal 0.0-6.0 [facility] Comment on above: Performed By: #### L AB103, LAB17 #### [employer]: STEVIE ELMORE ([id number]) [facility] [address] [place] [address] [place] Erythrocyte distribution width (RBC) [Ratio] 16.5 % High 11.5-15.0 [facility] Comment on above: Performed By: #### L 103, LAB17 #### [employer]: STEVIE PUTNAMPERICO ([id number]) [facility] [address] Hematocrit (Bld) [Volume fraction] 29.7 % Low 35.0-47.0 [facility] Comment on above: Performed By: #### L 103, LAB17 #### [employer]: STEVIE MOYAFAHAD ([id number]) [facility] [address] Hemoglobin (Bld) [Mass/Vol] 9.3 g/dL Low 11.7-16.0 [facility] Comment on above: Performed By: #### Misti FLORES, LAB17 #### [employer]: STEVIE ELMORE ([id number]) [facility] [address] IMMATURE GRANS % 2.2 % High 0.0-2.0 [facility] Comment on above: Performed By: #### Misti FLORES, LAB17 #### [employer]: STEVIE ELMORE ([id number]) [facility] [address] IMMATURE GRANS ABSOLUTE 0.2 10*3/uL High <0.1 [facility] Comment on above: Performed By: #### L 103, LAB17 #### [employer]: STEVIE PUTNAMPERICO ([id number]) [facility] [address] Lymphocytes (Bld) [#/Vol] 1.7 10*3/uL Normal 1.0-4.3 [facility] Comment on above: Performed By: #### L AB, LAB17 #### [employer]: STEVIE ELMORE ([id number]) [facility] [address] [place] [address] [place] Lymphocytes/100 WBC (Bld) 20.0 % Normal 15.0-45.0 [facility] Comment on above: Performed By: #### L AB103, LAB17 #### [employer]: STEVIE ELMORE ([id number]) [facility] [address] MCH (RBC) [Entitic mass] 29.2 pg Normal 26.0-34.0 [facility] Comment on above: Performed By: #### L AB103, LAB17 #### [employer]: STEVIE ELMORE ([id number]) [facility] [address] MCHC 31.3 % Normal 30.5-36.0 [facility] Comment on above: Performed By: #### L AB103, LAB17 #### [employer]: STEVIE ELMORE ([id number]) [facility] ([facility]) [address] MCV (RBC) [Entitic vol] 93.1 fL Normal 77.0-99.0 [facility] Comment on above: Performed By: #### L AB103, LAB17 #### [employer]: STEVIE ELMORE ([id number]) [facility] [address] Monocytes (Bld) [#/Vol] 0.7 10*3/uL Normal 0.0-0.9 [facility] Comment on above: Performed By: #### L AB103, LAB17 #### [employer]: STEVIE ELMORE ([id number]) [facility] ([facility]) [address] Monocytes/100 WBC (Bld) 8.1 % Normal 5.0-13.0 [facility] Comment on above: Performed By: #### L AB103, LAB17 #### [employer]: STEVIE ELMORE ([id number]) [facility] ([facility]) [address] NEUTROPHILS ABSOLUTE 5.7 10*3/uL Normal 1.8-7.5 [facility] Comment on above: Performed By: #### L AB103, LAB17 #### [employer]: STEVIE ELMORE ([id number]) [facility] [place] [facility] [address] Neutrophils/100 WBC (Bld) 65.2 % Normal 38.0-82.0 [facility] Comment on above: Performed By: #### L AB103, LAB17 #### [employer]: STEVIE ELMORE ([id number]) [facility] ([facility]) [address] NRBC 0.0 /100 WBCs Normal 0.0-2.0 [facility] Comment on above: Performed By: #### L AB103, LAB17 #### [employer]: STEVIE ELMORE ([id number]) [facility] [address] Platelet mean volume (Bld) [Entitic vol] 8.4 fL Low 9.0-12.7 [facility] Comment on above: Performed By: #### L AB103, LAB17 #### [employer]: STEVIE ELMORE ([id number]) [facility] [place] [facility] [address] [place] [address] [place] Platelets (Bld) [#/Vol] 342 10*3/uL Normal 140-440 [facility] Comment on above: Performed By: #### L AB103, LAB17 #### [employer]: STEVIE ELMORE ([id number]) [facility] [address] [place] [address] [place] RBC (Bld) [#/Vol] 3.19 10*6/uL Low 3.80-5.20 [facility] Comment on above: Performed By: #### L AB103, LAB17 #### [employer]: STEVIE ELMORE ([id number]) [facility] [place] [facility] [address] WBC (Bld) [#/Vol] 8.7 10*3/uL Normal 3.6-10.7 [facility] Comment on above: Performed By: #### L AB103, LAB17 #### [employer]: STEVIE ELMORE ([id number]) [facility] ([facility]) [address] COMPLETE URINALYSISon 2023 BACTERIA (#/HPF) IN URINE Few Abnormal Negative [facility] Comment on above: Performed By: #### L AB103, LAB17 #### [employer]: STEVIE ELMORE ([id number]) [facility] ([facility]) [address] BILIRUBIN, TOTAL PRESENCE IN URINE Negative Normal Negative [facility] Comment on above: Performed By: #### L AB103, LAB17 #### [employer]: STEVIE ELMORE ([id number]) [facility] ([facility]) [address] Clarity (U) Turbid Abnormal Clear [facility] Comment on above: Performed By: #### L AB103, LAB17 #### [employer]: STEVIE ELMORE ([id number]) [facility] ([facility]) [address] Color (U) Yellow Normal Lt. Yellow [facility] Comment on above: Performed By: #### L AB103, LAB17 #### [employer]: STEVIE ELMORE ([id number]) [facility] ([facility]) [address] [place] [address] [place] GLUCOSE (MG/DL) IN URINE Normal Normal Normal (<70) [facility] Comment on above: Performed By: #### L AB103, LAB17 #### [employer]: STEVIE ELMORE ([id number]) [facility] ([facility]) [address] [place] [address] [place] HEMOGLOBIN PRESENCE IN URINE Negative Normal Negative [facility] Comment on above: Performed By: #### L AB103, LAB17 #### [employer]: STEVIE ELMORE ([id number]) [facility] ([facility]) [address] Ketones Ql (U) Negative Normal Negative [facility] Comment on above: Performed By: #### L AB103, LAB17 #### [employer]: STEVIE ELMORE ([id number]) [facility] ([facility]) [address] LEUKOCYTE ESTERASE PRESENCE IN URINE BY TEST STRIP 500 Ha/uL Abnormal Negative [facility] Comment on above: Performed By: #### L AB103, LAB17 #### [employer]: STEVIE ELMORE ([id number]) [facility] [address] MUCUS (#/LPF) IN URINE SEDIMENT Few Normal Negative [facility] Comment on above: Performed By: #### L AB103, LAB17 #### [employer]: STEVIE ELMORE ([id number]) [facility] [address] NITRITE PRESENCE IN URINE Negative Normal Negative [facility] Comment on above: Performed By: #### L AB103, LAB17 #### [employer]: STEVIE ELMORE ([id number]) [facility] [address] pH (U) 5.0 [pH] Normal 5.0-8.0 [facility] Comment on above: Performed By: #### L AB103, LAB17 #### [employer]: STEVIE ELMORE ([id number]) [facility] [address] Protein (U) [Mass/Vol] 20 mg/dL Abnormal Negative [facility] Comment on above: Performed By: #### L AB103, LAB17 #### [employer]: STEVIE ELMORE ([id number]) [facility] [address] RBC (#/HPF) IN URINE SEDIMENT 3-5 Abnormal 0-2 [facility] Comment on above: Performed By: #### L AB103, LAB17 #### [employer]: STEVIE ELMORE ([id number]) [facility] [address] Specific gravity (U) [Rel density] 1.020 Normal 1.005-1.030 [facility] Comment on above: Performed By: #### L AB103, LAB17 #### [employer]: STEVIE ELMORE ([id number]) [facility] ([facility]) [address] SQUAMOUS EPITHELIAL CELLS (#/HPF) IN URINE SEDIMENT 11-25 Abnormal 3-5 [facility] Comment on above: Performed By: #### L AB103, LAB17 #### [employer]: STEVIE ELMORE ([id number]) [facility] ([facility]) [address] UROBILINOGEN (MG/DL) IN URINE Normal Normal Normal (0-1) [facility] Comment on above: Performed By: #### L AB103, LAB17 #### [employer]: STEVIE ELMORE ([id number]) [facility] ([facility]) [address] WBC (LEUKOCYTE) (#/HPF) IN URINE SEDIMENT 51-100 Abnormal 0-5 [facility] Comment on above: Performed By: #### L AB103, LAB17 #### [employer]: STEVIE ELMORE ([id number]) [facility] ([facility]) [address] COMPREHENSIVE METABOLIC PANE Wade 03-05-2024 Albumin [Mass/Vol] 3.1 g/dL Low 3.5-5.0 [facility] Comment on above: Performed By: #### L AB17 ####[employer]: STEVIE ELMORE ([id number])[facility] ([facility])[address] ALP [Catalytic activity/Vol] 95 U/L Normal 38-126 [facility] Comment on above: Performed By: #### L AB17 ####[employer]: STEVIE ELMORE ([id number])[facility] [place] ([facility])[address] [place] [address] [place] ALT [Catalytic activity/Vol] 22 U/L Normal 0-34 [facility] Comment on above: Performed By: #### L AB17 ####[employer]: STEVIE ELMORE ([id number])[facility] [place] ([facility])[address] Anion gap [Moles/Vol] 7 mmol/L Normal 3-13 [facility] Comment on above: Performed By: #### L AB17 ####[employer]: STEVIE ELMORE ([id number])[facility] [place] ([facility])[address] AST [Catalytic activity/Vol] 21 U/L Normal 15-46 [facility] Comment on above: Performed By: #### L AB17 ####[employer]: STEVIE ELMORE ([id number])[facility] [place] ([facility])[address] Bilirubin [Mass/Vol] 0.4 mg/dL Normal 0.2-1.3 [facility] Comment on above: Performed By: #### L AB17 ####[employer]: STEVIE ELMORE ([id number])[facility] [place] ([facility])[address] [place] [address] [place] Calcium [Mass/Vol] 9.1 mg/dL Normal 8.4-10.4 [facility] Comment on above: Performed By: #### L AB17 ####[employer]: STEVIE ELMORE ([id number])[facility] [place] ([facility])[address] [place] [address] [place] Chloride [Moles/Vol] 104 mmol/L Normal 98-107 [facility] Comment on above: Performed By: #### L AB17 ####[employer]: STEVIE ELMORE ([id number])[facility] [place] (SBHLAB)[address] CO2 [Moles/Vol] 25 mmol/L Normal 22-30 [facility] Comment on above: Performed By: #### L AB17 ####[employer]: STEVIE ELMORE ([id number])[facility] [place] (SB[facility])[address] Creatinine [Mass/Vol] 1.23 mg/dL High 0.52-1.04 [facility] Comment on above: Performed By: #### L AB17 ####[employer]: STEVIE ELMORE ([id number])[facility] [place] (SB[facility])[address] GLOMERULAR FILTRATION RATE ML/MIN/1.73 SQ M.PREDICTED 48.6 mL/min/1.73m*2 Low >60.0 [facility] Comment on above: Result Comment: Calc ulation based on the Chronic Kidney Disease Epidemiology Collaboration (CKD-EPI) equation refit without adjustment for race Performed By: #### L AB17 ####[employer]: STEVIE ELMORE ([id number])[facility] [place] (SB[facility])[address] Glucose [Mass/Vol] 144 mg/dL High 70-100 [facility] Comment on above: Performed By: #### L AB17 ####[employer]: STEVIE ELMORE ([id number])[facility] [place] (SBHLAB)[address] Potassium [Moles/Vol] 4.7 mmol/L Normal 3.5-5.1 [facility] Comment on above: Performed By: #### L AB17 ####[employer]: STEVIE ELMORE ([id number])[facility] (SBHLAB)[address] Protein [Mass/Vol] 5.7 g/dL Low 6.3-8.2 [facility] Comment on above: Performed By: #### L AB17 ####[employer]: STEVIE PUTNAMPERICO ([id number])[facility] [place] (SBHLAB)[address] Sodium [Moles/Vol] 137 mmol/L Normal 135-145 [facility] Comment on above: Performed By: #### L AB17 ####[employer]: STEVIE MOYAFAHAD ([id number])[facility] (SBHLAB)[address] Urea nitrogen [Mass/Vol] 24 mg/dL High 7-17 [facility] Comment on above: Performed By: #### L AB17 ####[employer]: STEVIE MOYAFAHAD ([id number])[facility] [place] (SBHLAB)[address] Comprehensive metabolic 1998 panelon 03-05-2024 Albumin [Mass/Vol] 3.1 g/dL Low 3.5 - 5.0 g/dL [facility] ALP [Catalytic activity/Vol] 95 U/L 38 - 126 U/L [facility] ALT [Catalytic activity/Vol] 22 U/L 0 - 34 U/L [facility] Anion gap [Moles/Vol] 7 mmol/L 3 - 13 mmol/L [facility] AST [Catalytic activity/Vol] 21 U/L 15 - 46 U/L [facility] Bilirubin [Mass/Vol] 0.4 mg/dL 0.2 - 1 .3 mg/dL [facility] Calcium [Mass/Vol] 9.1 mg/dL 8.4 - 10. 4 mg/dL [facility] Chloride [Moles/Vol] 104 mmol/L 98 - 10 7 mmol/L [facility] CO2 [Moles/Vol] 25 mmol/L 22 - 30 mmol/L [facility] Creatinine [Mass/Vol] 1.23 mg/dL High 0.52 - 1.04 mg/dL [facility] GFR/1.73 sq M.predicted MDRD (S/P/Bld) [Vol rate/Area] 48.6 mL/min/{1.73_m2} Low - PINF [facility] Comment on above: Calculation based on the Chronic Kidney Disease Epidemiology Collaboration (CKD-EPI) equation refit without adjustment for race Glucose [Mass/Vol] 144 mg/dL High 70 - 100 mg/dL [facility] Interpretation and review of laboratory results Abnormal [facility] Potassium [Moles/Vol] 4.7 mmol/L 3.5 - 5.1 mmol/L [facility] Protein [Mass/Vol] 5.7 g/dL Low 6.3 - 8.2 g/dL [facility] Sodium [Moles/Vol] 137 mmol/L 135 - 145 mmol/L [facility] Urea nitrogen [Mass/Vol] 24 mg/dL High 7 - 17 mg/dL [facility] ED Nursing Noteon 03-05-2024 ED Nursing Note CHARGE LPN called for USIV and labs Marjorie Stephens RN 03/05/241941 Normal [facility] ED Nursing Note Pt arrived via EMS [facility] for complaints of increased confusion and hallucinations at dinner. When EMS arrived, pt was A&O x4. During transport, pt had intermittent confusion in EMS. Pt was seen a week ago in [facility] and was being treated for UTI, which she has completed 1st ATB and is on 2nd one. Pt has PICC line in [facility], but entire arm is painful to touch. Normal [facility] ED Provider Noteon ED Provider Note EMERGENCY [...] Diagnosis Date ? CHF (congestive heart failure) ([facility]) ? COPD (chronic obstructive pulmonary disease) (CMS/[facility]) ? Diabetes mellitus (CMS/[facility]) SURGICAL HISTORY Past Surgical History: Procedure Laterality [...] (fourteen) days. ERGOCALCIFEROL (VITAMIN D-2) 1.25 MG (77981 UT) CAPSULE Take 1.25 mg by mouth [...] MG 24 (more content not included)... Normal [facility] LACTIC ACID WITH REFLEXon Lactate [Moles/Vol] 1.1 mmol/L Normal 0.7-2.0 [facility] Comment on above: Performed By: #### L [id number] ####[employer]: STEVIE ELMORE ([id number])[facility] (SBHLAB)[address] [place] [address] Laboratory - Chemistry and C hemistry - challengeon 03-05-2024 Lactate [Moles/Vol] 1.1 mmol/L 0.7 - 2. 0 mmol/L [facility] No Panel Informationon 03-05 Interpretation and review of laboratory results Normal [facility] URINE CULTUREon 03-05-2024 Bacteria identified Cx Nom [...] Non-susceptible NO = No Interpretation ] Normal [facility] Comment on above: Performed By: #### L [id number] ####[employer]: SILVIA FRENCH ([id number])[facility] (SACLAB)[address] [place] [address] Urinalysis complete panel (U )Ordered By: Eliz Amador on 03-05-2024 Bacteria LM.HPF (Urine sed) [#/Area] Few Abnormal Negative /HPF [facility] Bilirubin Ql (U) Negative Negative mg/dL [facility] Clarity (U) Turbid Abnormal Clear [facility] Color (U) Yellow Lt. Yellow [facility] Epithelial cells.squamous LM.HPF (Urine sed) [#/Area] 11-25 Abnormal [facility] Glucose Ql (U) Normal Normal (<70) mg/dL [facility] Hemoglobin Ql (U) Negative Negative mg/dL [facility] Interpretation and review of laboratory results Abnormal [facility] Ketones (U) [Mass/Vol] Negative Negat rhonda mg/dL [facility] Leukocyte esterase Test strip Ql (U) 500 Abnormal Negative Ha/uL [facility] Mucus LM.HPF (Urine sed) [#/Area] Few Negative /LPF [facility] Nitrite Ql (U) Negative Negative [facility] th pH (U) 5.0 [pH] 5.0 - 8.0 pH [facility] Protein (U) [Mass/Vol] 20 mg/dL Abnormal Negative [facility] RBC LM.HPF (Urine sed) [#/Area] 3-5 Abnormal [facility] Specific gravity (U) [Rel density] 1.020 1.005 - 1.030 [facility] Urobilinogen (U) [Mass/Vol] Normal Normal (0-1) mg/dL [facility] WBC LM.HPF (Urine sed) [#/Area] 51-100 Abnormal [facility] XR Chest Single viewon 03-05 FINDINGS/IMPRESSION: The patient is somewhat rotated 1. Lines/Tubes/Devices/David dware: Right PICC with catheter tip overlying the SVC 2. Lungs: No consolidation or pulmonary edema. 3. Pleura: No pneumothorax or large pleural effusions. 4. Heart and mediastinum: Normal cardiomediastinal contours. Report Dictated on Electronically Signed By: Milad Kirkpatrick MD Electronically Signed Date/Time: 03/05/2024 8:25 PM EDT [facility] [employer] [facility] Name[facility]IMBERLY PATEL [facility] 1955 [id number] Exam Date/Time: 03/05/2024 20:11 Procedure: XR CHEST 1 VIEW Ordering Provider: CORTEZ MARK Reason For Exam: ALTERED MENTAL STATUS EXAM TYPE: RADIOLOGIC EXAMINATION, CHEST, SINGLE VIEW FRONTAL (CXR SINGLE VIEW) EXAM DATE AND TIME: 03/05/2024 8:11 PM EDT INDICATION: Altered mental status COMPARISON: None available. TECHNIQUE: A single frontal view of the thorax was obtained and reviewed. Special views: None. [facility] [employer] [facility] Milad Kirkpatrick MD - 03/05/2024 Patient Name: [...] Electronically Signed Date/Time: 03/05/2024 8:25 PM EDT [facility] Radiology Study observation (narrative) [facility] XR Chest Single viewOrdered By: Milad Kirkpatrick on 03-05-2024 [facility] Work Phone: 36on 02-29-2024 36 Patient discharged t [facility] on 02/28/24. OPAT faxed to facility. Called and spoke ti nurse Lozano to review orders, labs and follow up blood cultures that are needed. Normal [facility] 36on 02-28-2024 36 Patient remain hospitalized. Follow up blood cultures only awaiting discharge plans. Normal [facility] Bacteria identified Cx Nom ( Bld)on 02-28-2024 Interpretation and review of laboratory results Normal [facility] CARECOORDon 02-28-2024 [place] Next Site of Care Admission Date: 02/21/2024 10:26 AM Patient Name: KIMBERLY PATEL Location: [facility] 2E CARDIAC PCU/[facility] [id number] A Date of : 1955 - Placement Information - Referral Type:Longterm/SNF - Return Referral ID:[id number] Provider Name:[facility] Address 1:[address] [place] [address] Address 2: City:[place] Selection Factors:Returning to Facility State:[place] [facility] Dc back to [facility] this evening at 6:00. Anibal messaged the facility with dc time. Discussed dc time with patients daughter Alexandro. She did have a question about patients iron and a chat message was sent to Dr. Mendoza. Ambulance form completed. [facility] Discharge med list transmitted to return back to [facility] via [facility] per [facility] request. Normal [facility] Sent ABX order to return back to [facility] via [facility] per [facility] request. Await review and response regarding ability to accept. [facility] notified. Normal [facility] CBC W Auto Differential pane l (Bld)Ordered By: Lindsay Mcintosh on 02-28-2024 Erythrocyte distribution width (RBC) [Ratio] 15.2 % High 11.5 - 15.0 % [facility] Hematocrit (Bld) [Volume fraction] 25.0 % Low 35.0 - 47.0 % [facility] Hemoglobin (Bld) [Mass/Vol] 7.6 g/dL Low 11.7 - 16.0 g/dL [facility] Interpretation and review of laboratory results Abnormal [facility] MCH (RBC) [Entitic mass] 28.7 pg 26.0 - 34.0 pg [facility] MCHC (RBC) [Mass/Vol] 30.4 % Low 30.5 - 36.0 % [facility] MCV (RBC) [Entitic vol] 94.3 fL 77.0 - 99.0 fL [facility] Platelet mean volume (Bld) [Entitic vol] 8.3 fL Low 9.0 - 12.7 fL [facility] Platelets (Bld) [#/Vol] 293 10*3/uL 140 - 440 10*3/uL [facility] RBC (Bld) [#/Vol] 2.65 10*6/uL Low 3.80 - 5.2 0 10*6/uL [facility] WBC (Bld) [#/Vol] 7.7 10*3/uL 3.6 - 10.7 10*3/uL [facility] CBC WITH AUTO DIFFERENTIALon 02-28-2024 Erythrocyte distribution width (RBC) [Ratio] 15.2 % High 11.5-15.0 [facility] Comment on above: Performed By: #### L AB103, LAB17 #### [employer]: STEVIE ELMORE ([id number]) [facility] (SBHLAB) [address] Hematocrit (Bld) [Volume fraction] 25.0 % Low 35.0-47.0 [facility] Comment on above: Performed By: #### L AB103, LAB17 #### [employer]: STEVIE ELMORE ([id number]) [place] (SBHLAB) [address] Hemoglobin (Bld) [Mass/Vol] 7.6 g/dL Low 11.7-16.0 [facility] Comment on above: Performed By: #### L AB103, LAB17 #### [employer]: STEVIE ELMORE ([id number]) [facility] (SBHLAB) [address] MCH (RBC) [Entitic mass] 28.7 pg Normal 26.0-34.0 [facility] Comment on above: Performed By: #### L AB103, LAB17 #### [employer]: STEVIE ELMORE ([id number]) [facility] [place] (SBHLAB) [address] MCHC 30.4 % Low 30.5-36.0 [facility] Comment on above: Performed By: #### L AB103, LAB17 #### [employer]: STEVIE ELMORE ([id number]) [facility] [place] (SBHLAB) [address] MCV (RBC) [Entitic vol] 94.3 fL Normal 77.0-99.0 [facility] Comment on above: Performed By: #### L AB103, LAB17 #### [employer]: STEVIE ELMORE ([id number]) [facility] (SBHLAB) [address] Platelet mean volume (Bld) [Entitic vol] 8.3 fL Low 9.0-12.7 [facility] Comment on above: Performed By: #### L AB103, LAB17 #### [employer]: STEVIE ELMORE ([id number]) [facility] [place] (SBHLAB) [address] Platelets (Bld) [#/Vol] 293 10*3/uL Normal 140-440 [facility] Comment on above: Performed By: #### L AB103, LAB17 #### [employer]: STEVIE ELMORE ([id number]) [facility] (SBHLAB) [address] RBC (Bld) [#/Vol] 2.65 10*6/uL Low 3.80-5.20 [facility] Comment on above: Performed By: #### L AB103, LAB17 #### [employer]: STEVIE ELMORE ([id number]) [facility] (SBHLAB) [address] WBC (Bld) [#/Vol] 7.7 10*3/uL Normal 3.6-10.7 [facility] Comment on above: Performed By: #### L AB103, LAB17 #### [employer]: STEVIE ELMORE ([id number]) [facility] (SBHLAB) [address] COMPREHENSIVE METABOLIC PANE Wade 02-28-2024 Albumin [Mass/Vol] 2.6 g/dL Low 3.5-5.0 [facility] Comment on above: Performed By: #### L AB103, LAB17 #### [employer]: STEVIE ELMORE ([id number]) [facility] (SBHLAB) [address] ALP [Catalytic activity/Vol] 62 U/L Normal 38-126 [facility] Comment on above: Performed By: #### L AB103, LAB17 #### [employer]: STEVIE ELMORE ([id number]) [facility] (SBHLAB) [address] ALT [Catalytic activity/Vol] 20 U/L Normal 0-34 [facility] Comment on above: Performed By: #### L AB103, LAB17 #### [employer]: STEVIE ELMORE ([id number]) [facility] (SBHLAB) [address] Anion gap [Moles/Vol] 2 mmol/L Low 3-13 [facility] Comment on above: Performed By: #### L AB103, LAB17 #### [employer]: STEVIE ELMORE ([id number]) [facility] (SBHLAB) [address] AST [Catalytic activity/Vol] 23 U/L Normal 15-46 [facility] Comment on above: Performed By: #### L AB103, LAB17 #### [employer]: STEVIE ELMORE ([id number]) [facility] (SBHLAB) [address] Bilirubin [Mass/Vol] 0.2 mg/dL Normal 0.2-1.3 [facility] Comment on above: Performed By: #### L AB103, LAB17 #### [employer]: STEVIE ELMORE ([id number]) [facility] (HLAB) [address] Calcium [Mass/Vol] 8.1 mg/dL Low 8.4-10.4 [facility] Comment on above: Performed By: #### L AB103, LAB17 #### [employer]: STEVIE ELMORE ([id number]) [facility] (SBHLAB) [address] [place] [address] [place] Chloride [Moles/Vol] 108 mmol/L High 98-107 [facility] Comment on above: Performed By: #### L AB103, LAB17 #### [employer]: STEVIE ELMORE ([id number]) [facility] (SBHLAB) [address] [place] [address] [place] CO2 [Moles/Vol] 30 mmol/L Normal 22-30 [facility] Comment on above: Performed By: #### L AB103, LAB17 #### [employer]: STEVIE ELMORE ([id number]) [facility] (SBHLAB) [address] Creatinine [Mass/Vol] 1.34 mg/dL High 0.52-1.04 [facility] Comment on above: Performed By: #### L AB103, LAB17 #### [employer]: STEVIE ELMORE ([id number]) [facility] (SBHLAB) [address] [place] [address] [place] GLOMERULAR FILTRATION RATE ML/MIN/1.73 SQ M.PREDICTED 43.8 mL/min/1.73m*2 Low >60.0 [facility] Comment on above: Result Comment: Calc ulation based on the Chronic Kidney Disease Epidemiology Collaboration (CKD-EPI) equation refit without adjustment for race Performed By: #### L AB103, LAB17 #### [employer]: STEVIE ELMORE ([id number]) [facility] (SBHLAB) [address] [place] [address] [place] Glucose [Mass/Vol] 120 mg/dL High 70-100 [facility] Comment on above: Performed By: #### L AB103, LAB17 #### [employer]: STEVIE ELMORE ([id number]) [facility] (SBHLAB) [address] Potassium [Moles/Vol] 4.7 mmol/L Normal 3.5-5.1 [facility] Comment on above: Performed By: #### L AB103, LAB17 #### [employer]: STEVIE ELMORE ([id number]) [facility] (SBHLAB) [address] [place] [address] [place] Protein [Mass/Vol] 5.0 g/dL Low 6.3-8.2 [facility] Comment on above: Performed By: #### L AB103, LAB17 #### [employer]: STEVIE ELMORE ([id number]) [facility] (SBHLAB) [address] [place] [address] [place] Sodium [Moles/Vol] 139 mmol/L Normal 135-145 [facility] Comment on above: Performed By: #### L AB103, LAB17 #### [employer]: STEVIE ELMORE ([id number]) [facility] (SBHLAB) [address] Urea nitrogen [Mass/Vol] 25 mg/dL High 7-17 [facility] Comment on above: Performed By: #### L AB103, LAB17 #### [employer]: STEVIE ELMORE ([id number]) [facility] (SBHLAB) [address] Comprehensive metabolic 1998 panelon 02-28-2024 Albumin [Mass/Vol] 2.6 g/dL Low 3.5 - 5.0 g/dL [facility] ALP [Catalytic activity/Vol] 62 U/L 38 - 126 U/L [facility] ALT [Catalytic activity/Vol] 20 U/L 0 - 34 U/L [facility] Anion gap [Moles/Vol] 2 mmol/L Low 3 - 13 mmol/L [facility] AST [Catalytic activity/Vol] 23 U/L 15 - 46 U/L [facility] Bilirubin [Mass/Vol] 0.2 mg/dL 0.2 - 1 .3 mg/dL [facility] Calcium [Mass/Vol] 8.1 mg/dL Low 8.4 - 10. 4 mg/dL [facility] Chloride [Moles/Vol] 108 mmol/L High 98 - 10 7 mmol/L [facility] CO2 [Moles/Vol] 30 mmol/L 22 - 30 mmol/L [facility] Creatinine [Mass/Vol] 1.34 mg/dL High 0.52 - 1.04 mg/dL [facility] GFR/1.73 sq M.predicted MDRD (S/P/Bld) [Vol rate/Area] 43.8 mL/min/{1.73_m2} Low - PINF [facility] th Glucose [Mass/Vol] 120 mg/dL High 70 - 100 mg/dL [facility] Interpretation and review of laboratory results Abnormal [facility] Potassium [Moles/Vol] 4.7 mmol/L 3.5 - 5.1 mmol/L [facility] Protein [Mass/Vol] 5.0 g/dL Low 6.3 - 8.2 g/dL [facility] Sodium [Moles/Vol] 139 mmol/L 135 - 145 mmol/L [facility] Urea nitrogen [Mass/Vol] 25 mg/dL High 7 - 17 mg/dL [facility] Laboratory - Chemistry and C hemistry - challengeon 02-28-2024 Glucose [Mass/Vol] 107 mg/dL High 70 - 100 mg/dL [facility] Glucose [Mass/Vol] 114 mg/dL High 70 - 100 mg/dL [facility] Glucose [Mass/Vol] 128 mg/dL High 70 - 100 mg/dL [facility] Laboratory - Hematology and Cell countson 02-28-2024 Anisocytosis Ql (Bld) Slight Abnormal (none) [facility] Band form neutrophils (Bld) [#/Vol] 0.3 10*3/uL High NINF - 0.0 10*3/uL [facility] Band form neutrophils/100 WBC (Bld) 4 % High NINF - 0 % [facility] Basophils (Bld) [#/Vol] 0.1 10*3/uL 0.0 - 0.2 10*3/uL [facility] Basophils/100 WBC (Bld) 1 % 0 - 2 % [facility] Eosinophils (Bld) [#/Vol] 0.2 10*3/uL 0.0 - 0.5 10*3/uL [facility] Eosinophils/100 WBC (Bld) 3 % 0 - 6 % [facility] Hypochromia Ql (Bld) Slight Abnormal (none) [facility] Lymphocytes (Bld) [#/Vol] 1.3 10*3/uL 1.0 - 4.3 10*3/uL [facility] Lymphocytes/100 WBC (Bld) 17 % 15 - 45 % [facility] Metamyelocytes (Bld) [#/Vol] 0.2 10*3/uL High NINF - 0.0 10*3/uL [facility] Metamyelocytes/100 WBC (Bld) 2 % High NINF - 0 % [facility] Monocytes (Bld) [#/Vol] 0.4 10*3/uL 0.0 - 0.9 10*3/uL [facility] Monocytes/100 WBC (Bld) 5 % 5 - 13 % [facility] Myelocytes (Bld) [#/Vol] 0.2 10*3/uL High NINF - 0.0 10*3/uL [facility] Myelocytes/100 WBC (Bld) 2 % High NINF - 0 % [facility] Neutrophils (Bld) [#/Vol] 5.3 10*3/uL 1.8 - 7.5 10*3/uL [facility] Polychromasia LM Ql (Bld) Slight Abnormal (none) [facility] RBC morphology finding Nom (Bld) abnormal [facility] Segmented neutrophils/100 WBC (Bld) 65 % 38 - 82 % [facility] Laboratory - Microbiology an d Antimicrobial susceptibilityon 02-28-2024 Bacteria identified Cx Nom (Bld) No growth at 5 days [facility] MANUAL DIFFERENTIAL (CELLAVI JESSICA)on 02-28-2024 ANISOCYTOSIS PRESENCE IN BLOOD BY LIGHT MICROSCOPY Slight Abnormal (none) [facility] Comment on above: Performed By: #### L AB103, LAB17 #### [employer]: STEVIE ELMORE ([id number]) [facility] (SBHLAB[facility] [address] BAND NEUTROPHILS TOTAL PER COUNTED LEUKOCYTES BY MANUAL COUNT 4 Normal [facility] Comment on above: Performed By: #### L AB103, LAB17 #### [employer]: STEVIE ELMORE ([id number]) [facility] (SBHLAB) [address] [place] [address] [place] BANDS (10*3/UL) IN BLOOD-CELLAVISION 0.3 10*3/uL High <=0.0 [facility] Comment on above: Performed By: #### L AB103, LAB17 #### [employer]: STEVIE ELMORE ([id number]) [facility] [place] (SBHLAB) [address] [place] [address] [place] BASOPHILS (10*3/UL) IN BLOOD-CELLAVISION 0.1 10*3/uL Normal 0.0-0.2 [facility] Comment on above: Performed By: #### L AB103, LAB17 #### [employer]: STEVIE ELMORE ([id number]) [facility] (SBHLAB) [address] [place] [address] [place] BASOPHILS TOTAL PER COUNTED LEUKOCYTES BY MANUAL COUNT 1 Normal [facility] Comment on above: Performed By: #### L AB103, LAB17 #### [employer]: STEVIE ELMORE ([id number]) [facility] [place] (SBHLAB) [address] [place] [address] [place] BASOPHILS/100 LEUKOCYTES IN BLOOD-CELLAVISION 1 % Normal 0-2 [facility] Comment on above: Performed By: #### L AB103, LAB17 #### [employer]: STEVIE ELMORE ([id number]) [facility] [place] (SBHLAB) [address] [place] [address] [place] BLASTS TOTAL PER COUNTED LEUKOCYTES BY MANUAL COUNT Normal [facility] Comment on above: Performed By: #### L AB103, LAB17 #### [employer]: STEVIE ELMORE ([id number]) [facility] [place] (SBHLAB) [address] [place] [address] [place] EOSINOPHILS (10*3/UL) IN BLOOD-CELLAVISION 0.2 10*3/uL Normal 0.0-0.5 [facility] Comment on above: Performed By: #### L AB103, LAB17 #### [employer]: STEVIE ELMORE ([id number]) [facility] [place] (SBHLAB) [address] [place] [address] [place] EOSINOPHILS TOTAL PER COUNTED LEUKOCYTES BY MANUAL COUNT 3 High 0-1 [facility] Comment on above: Performed By: #### L AB103, LAB17 #### [employer]: STEVIE ELMORE ([id number]) [facility] [place] (SBHLAB) [address] [place] [address] [place] EOSINOPHILS/100 LEUKOCYTES IN BLOOD-CELLAVISION 3 % Normal 0-6 [facility] Comment on above: Performed By: #### L AB103, LAB17 #### [employer]: STEVIE ELMORE ([id number]) [facility] [place] (SBHLAB) [address] [place] [address] [place] HYPOCHROMIA (PRESENCE) IN BLOOD BY LIGHT MICROSCOPY Slight Abnormal (none) [facility] Comment on above: Performed By: #### L AB103, LAB17 #### [employer]: STEVIE MOSQUEDACER ([id number]) [facility] [place] (SBHLAB) [address] [place] [address] [place] LYMPHOCYTES (10*3/UL) IN BLOOD-CELLAVISION 1.3 10*3/uL Normal 1.0-4.3 [facility] Comment on above: Performed By: #### L AB103, LAB17 #### [employer]: STEVIE ELMORE ([id number]) [facility] [address] [place] [address] [place] LYMPHOCYTES TOTAL PER COUNTED LEUKOCYTES BY MANUAL COUNT 17 Normal [facility] Comment on above: Performed By: #### L AB103, LAB17 #### [employer]: STEVIE PUTNAMPERICO ([id number]) [facility] [address] [place] [address] [place] LYMPHOCYTES/100 LEUKOCYTES IN BLOOD-CELLAVISION 17 % Normal 15-45 [facility] Comment on above: Performed By: #### L AB103, LAB17 #### [employer]: STEVIE ELMORE ([id number]) [facility] [address] [place] [address] [place] METAMYELOCYTES (10*3/UL) IN BLOOD-CELLAVISION 0.2 10*3/uL High <=0.0 [facility] Comment on above: Performed By: #### L AB103, LAB17 #### [employer]: STEVIE ELMORE ([id number]) [facility] [address] [place] [address] [place] METAMYELOCYTES TOTAL PER COUNTED LEUKOCYTES BY MANUAL COUNT 2 Normal [facility] Comment on above: Performed By: #### L AB103, LAB17 #### [employer]: STEVIE ELMORE ([id number]) [facility] ([facility] [address] [place] [address] [place] METAMYELOCYTES/100 LEUKOCYTES IN BLOOD-CELLAVISION 2 % High <=0 [facility] Comment on above: Performed By: #### L AB103, LAB17 #### [employer]: STEVIE MOSQUEDACER ([id number]) [facility] ([facility] [address] [place] [address] [place] MONOCYTES (10*3/UL) IN BLOOD-CELLAVISION 0.4 10*3/uL Normal 0.0-0.9 [facility] Comment on above: Performed By: #### L AB103, LAB17 #### [employer]: STEVIE MOSQUEDACER ([id number]) [facility] ([facility] [address] [place] [address] [place] MONOCYTES TOTAL PER COUNTED LEUKOCYTES BY MANUAL COUNT 5 Normal [facility] Comment on above: Performed By: #### L AB103, LAB17 #### [employer]: STEVIE ELMORE ([id number]) [facility] [address] [place] [address] [place] MONOCYTES/100 LEUKOCYTES IN BLOOD-JESSICA 5 % Normal 5-13 [facility] Comment on above: Performed By: #### L AB103, LAB17 #### [employer]: STEVIE ELMORE ([id number]) [facility] [address] [place] [address] [place] MYELOCYTES (10*3/UL) IN BLOOD-CELLAVISION 0.2 10*3/uL High <=0.0 [facility] Comment on above: Performed By: #### L AB103, LAB17 #### [employer]: STEVIE ELMORE ([id number]) [facility] ([facility] [address] [place] [address] [place] MYELOCYTES COUNTED BY MANUAL COUNT 2 Normal [facility] Comment on above: Performed By: #### L AB103, LAB17 #### [employer]: STEVIE ELMORE ([id number]) [facility] ([facility] [address] [place] [address] [place] MYELOCYTES/100 LEUKOCYTES IN BLOOD-CELLAVISION 2 % High <=0 [facility] Comment on above: Performed By: #### L AB103, LAB17 #### [employer]: STEVIE CATARINA ([id number]) [facility] ([facility] [address] [place] [address] [place] NEUTROPHILS BAND FORM/100 LEUKOCYTES IN BLOOD-CELLAVISI 4 % High <=0 [facility] Comment on above: Performed By: #### L AB103, LAB17 #### [employer]: STEVIE MOYAFAHAD ([phone]) [facility] ([facility] [address] [place] [address] [place] NEUTROPHILS TOTAL PER COUNTED LEUKOCYTES BY MANUAL COUNT 64 Normal [facility] Comment on above: Performed By: #### L AB103, LAB17 #### [employer]: STEVIE MOYAFAHAD ([id number]) [facility] ([facility] [address] [place] [address] [place] POLYCHROMASIA IN BLOOD BY LIGHT MICROSCOPY Slight Abnormal (none) [facility] Comment on above: Performed By: #### L AB103, LAB17 #### [employer]: STEVIE MOYAFAHAD ([id number]) [facility] ([facility] [address] [place] [address] [place] PROMYELOCYTES TOTAL PER COUNTED LEUKOCYTES BY MANUAL COUNT Normal [facility] Comment on above: Performed By: #### L AB103, LAB17 #### [employer]: STEVIE MOYAFAHAD ([id number]) [facility] ([facility] [address] [place] [address] [place] RBC MORPHOLOGY IN BLOOD abnormal Normal [facility] Comment on above: Performed By: #### L AB103, LAB17 #### [employer]: STEVIE MOYAFAHAD ([id number]) [facility] ([facility] [address] [place] [address] [place] SEGMENTED NEUTROPHILS (10*3/UL) IN BLOOD-CELLAVISION 5.3 10*3/uL Normal 1.8-7.5 [facility] Comment on above: Performed By: #### L AB103, LAB17 #### [employer]: STEVIE CATARINA ([id number]) [facility] ([facility]) [address] SEGMENTED NEUTROPHILS/100 LEUKOCYTES-CE 65 % Normal 38-82 [facility] Comment on above: Performed By: #### L AB103, LAB17 #### [employer]: STEVIE MOYAFAHAD ([id number]) [facility] ([facility]) [address] UNCLASSIFIED CELLS TOTAL PER COUNTED LEUKOCYTES BY MANUAL COUNT Normal [facility] Comment on above: Performed By: #### L AB103, LAB17 #### [employer]: STEVIE MOYAFAHAD ([id number]) [facility] ([facility]) [address] VARIANT LYMPHOCYTES TOTAL PER COUNTED LEUKOCYTES BY MANUAL COUNT Normal [facility] Comment on above: Performed By: #### L AB103, LAB17 #### [employer]: STEVIE MOYAFAHAD ([id number]) [facility] ([facility]) [address] No Panel Informationon 02-27 Interpretation and review of laboratory results Abnormal [facility] Interpretation and review of laboratory results Abnormal [facility] Bands Manual 4 [facility] Basophils Manual 1 [facility] alth Eosinophils Manual 3 High 0 - 1 [facility] Interpretation and review of laboratory results Abnormal [facility] Lymphocytes Manual 17 [facility] Metamyelocytes Manual 2 [facility] Monocytes Manual 5 [facility] alth Myelocytes Manual 2 [facility] ealth Neutrophils Manual 64 [facility] Interpretation and review of laboratory results Abnormal [facility] Radiology Study observation (narrative) [facility] Radiology Study observation (narrative) [facility] Radiology Study observation (narrative) [facility] Progress Noteon 02-28-2024 Progress Note Pt refused to allow OUTSOLE SKIVER to obtain Accucheck glucose level. Nurse used am BMP glucose level of 120 for am coverage. Nurse advised pt that for lunch and dinner pt will need to have bgl levels checked prior to eating. Pt agreeable. Normal [facility] Bacteria identified Cx Nom ( U)Ordered By: Brady Tom on 02-27-2024 Interpretation and review of laboratory results Abnormal [facility] CBC W Auto Differential pane l (Bld)Ordered By: Brady Carey on 02-27-2024 Erythrocyte distribution width (RBC) [Ratio] 15.0 % 11.5 - 15.0 % [facility] Hematocrit (Bld) [Volume fraction] 27.3 % Low 35.0 - 47.0 % [facility] Hemoglobin (Bld) [Mass/Vol] 8.3 g/dL Low 11.7 - 16.0 g/dL [facility] Interpretation and review of laboratory results Abnormal [facility] MCH (RBC) [Entitic mass] 28.4 pg 26.0 - 34.0 pg [facility] MCHC (RBC) [Mass/Vol] 30.4 % Low 30.5 - 36.0 % [facility] MCV (RBC) [Entitic vol] 93.5 fL 77.0 - 99.0 fL [facility] Platelet mean volume (Bld) [Entitic vol] 8.4 fL Low 9.0 - 12.7 fL [facility] Platelets (Bld) [#/Vol] 286 10*3/uL 140 - 440 10*3/uL [facility] RBC (Bld) [#/Vol] 2.92 10*6/uL Low 3.80 - 5.2 0 10*6/uL [facility] WBC (Bld) [#/Vol] 8.5 10*3/uL 3.6 - 10.7 10*3/uL [facility] CBC WITH AUTO DIFFERENTIALon 02-27-2024 Erythrocyte distribution width (RBC) [Ratio] 15.0 % Normal 11.5-15.0 [facility] Comment on above: Performed By: #### L AB103, LAB17 #### [employer]: STEVIE ELMORE ([id number]) [facility] ([address] Hematocrit (Bld) [Volume fraction] 27.3 % Low 35.0-47.0 [facility] Comment on above: Performed By: #### L AB103, LAB17 #### [employer]: STEVIE ELMORE ([phone]) [facility] ([facility]) [address] Hemoglobin (Bld) [Mass/Vol] 8.3 g/dL Low 11.7-16.0 [facility] Comment on above: Performed By: #### L AB103, LAB17 #### [employer]: STEVIE CATARINA ([id number]) [facility] (SB[facility]) [address] MCH (RBC) [Entitic mass] 28.4 pg Normal 26.0-34.0 [facility] Comment on above: Performed By: #### L AB103, LAB17 #### [employer]: STEVIE CATARINA ([id number]) [facility] (HLAB) [address] MCHC 30.4 % Low 30.5-36.0 [facility] Comment on above: Performed By: #### L AB103, LAB17 #### [employer]: STEVIE CATARINA ([id number]) [facility] ([facility]) [address] MCV (RBC) [Entitic vol] 93.5 fL Normal 77.0-99.0 [facility] Comment on above: Performed By: #### L AB103, LAB17 #### [employer]: STEVIE PUTNAMPERICO ([id number]) [facility] ([facility]) [address] Platelet mean volume (Bld) [Entitic vol] 8.4 fL Low 9.0-12.7 [facility] Comment on above: Performed By: #### L AB103, LAB17 #### [employer]: STEVIE PUTNAMPERICO ([phone]) [facility] ([facility]) [address] Platelets (Bld) [#/Vol] 286 10*3/uL Normal 140-440 [facility] Comment on above: Performed By: #### L AB103, LAB17 #### [employer]: STEVIE ELMORE ([id number]) [facility] ([facility]) [address] RBC (Bld) [#/Vol] 2.92 10*6/uL Low 3.80-5.20 [facility] Comment on above: Performed By: #### L AB103, LAB17 #### [employer]: STEVIE ELMORE ([id number]) [facility] ([facility]) [address] WBC (Bld) [#/Vol] 8.5 10*3/uL Normal 3.6-10.7 [facility] Comment on above: Performed By: #### L AB103, LAB17 #### [employer]: STEVIE PUTNAMPERICO ([id number]) [facility] (HLAB) [address] COMPREHENSIVE METABOLIC PANE Wade 02-27-2024 Albumin [Mass/Vol] 2.6 g/dL Low 3.5-5.0 [facility] Comment on above: Performed By: #### L AB103, LAB17 #### [employer]: STEVIE ELMORE ([id number]) [facility] ([facility]) [address] ALP [Catalytic activity/Vol] 68 U/L Normal 38-126 [facility] Comment on above: Performed By: #### L AB103, LAB17 #### [employer]: STEVIE ELMORE ([id number]) [facility] ([facility]) [address] ALT [Catalytic activity/Vol] 19 U/L Normal 0-34 [facility] Comment on above: Performed By: #### L AB103, LAB17 #### [employer]: STEVIE ELMORE ([id number]) [facility] ([facility]) [address] Anion gap [Moles/Vol] 0 mmol/L Low 3-13 [facility] Comment on above: Performed By: #### L AB103, LAB17 #### [employer]: STEVIE ELMORE ([id number]) [facility] ([facility]) [address] AST [Catalytic activity/Vol] 20 U/L Normal 15-46 [facility] Comment on above: Performed By: #### L AB103, LAB17 #### [employer]: STEVIE ELMORE ([id number]) [facility] ([facility] [address] Bilirubin [Mass/Vol] 0.2 mg/dL Normal 0.2-1.3 [facility] Comment on above: Performed By: #### L AB103, LAB17 #### [employer]: STEVIE ELMORE ([id number]) [facility] ([facility]) [address] Calcium [Mass/Vol] 8.5 mg/dL Normal 8.4-10.4 [facility] Comment on above: Performed By: #### L AB103, LAB17 #### [employer]: STEVIE ELMORE ([id number]) [facility] ([facility]) [address] [place] [address] [place] Chloride [Moles/Vol] 106 mmol/L Normal 98-107 [facility] Comment on above: Performed By: #### L AB103, LAB17 #### [employer]: STEVIE ELMORE ([id number]) [facility] ([facility] [address] [place] [address] [place] CO2 [Moles/Vol] 31 mmol/L High 22-30 [facility] Comment on above: Performed By: #### L AB103, LAB17 #### [employer]: STEVIE ELMORE ([id number]) [facility] ([facility] [address] [place] [address] [place] Creatinine [Mass/Vol] 1.30 mg/dL High 0.52-1.04 [facility] Comment on above: Performed By: #### L AB103, LAB17 #### [employer]: STEVIE ELMORE ([id number]) [facility] ([facility]) [address] [place] [address] [place] GLOMERULAR FILTRATION RATE ML/MIN/1.73 SQ M.PREDICTED 45.4 mL/min/1.73m*2 Low >60.0 [facility] Comment on above: Result Comment: Calc ulation based on the Chronic Kidney Disease Epidemiology Collaboration (CKD-EPI) equation refit without adjustment for race Performed By: #### L AB103, LAB17 #### [employer]: STEVIE ELMORE ([id number]) [facility] ([facility]) [address] Glucose [Mass/Vol] 137 mg/dL High 70-100 [facility] Comment on above: Performed By: #### L AB103, LAB17 #### [employer]: STEVIE ELMORE ([id number]) [facility] ([facility]) [address] Potassium [Moles/Vol] 4.7 mmol/L Normal 3.5-5.1 [facility] Comment on above: Performed By: #### L AB103, LAB17 #### [employer]: STEVIE ELMORE ([id number]) [facility] ([facility]) [address] Protein [Mass/Vol] 5.2 g/dL Low 6.3-8.2 [facility] Comment on above: Performed By: #### L AB103, LAB17 #### [employer]: STEVIE ELMORE ([id number]) [facility] ([facility]) [address] [place] [address] [place] Sodium [Moles/Vol] 137 mmol/L Normal 135-145 [facility] Comment on above: Performed By: #### L AB103, LAB17 #### [employer]: STEVIE ELMORE ([id number]) [facility] ([facility]) [address] [place] [address] [place] Urea nitrogen [Mass/Vol] 26 mg/dL High 7-17 [facility] Comment on above: Performed By: #### L AB103, LAB17 #### [employer]: STEVIE ELMORE ([id number]) [facility] ([facility]) [address] Comprehensive metabolic 1998 panelon 02-27-2024 Albumin [Mass/Vol] 2.6 g/dL Low 3.5 - 5.0 g/dL [facility] ALP [Catalytic activity/Vol] 68 U/L 38 - 126 U/L [facility] ALT [Catalytic activity/Vol] 19 U/L 0 - 34 U/L [facility] Anion gap [Moles/Vol] 0 mmol/L Low 3 - 13 mmol/L [facility] AST [Catalytic activity/Vol] 20 U/L 15 - 46 U/L [facility] Bilirubin [Mass/Vol] 0.2 mg/dL 0.2 - 1 .3 mg/dL [facility] Calcium [Mass/Vol] 8.5 mg/dL 8.4 - 10. 4 mg/dL [facility] Chloride [Moles/Vol] 106 mmol/L 98 - 10 7 mmol/L [facility] CO2 [Moles/Vol] 31 mmol/L High 22 - 30 mmol/L [facility] Creatinine [Mass/Vol] 1.30 mg/dL High 0.52 - 1.04 mg/dL [facility] GFR/1.73 sq M.predicted MDRD (S/P/Bld) [Vol rate/Area] 45.4 mL/min/{1.73_m2} Low - PINF [facility] th Glucose [Mass/Vol] 137 mg/dL High 70 - 100 mg/dL [facility] Interpretation and review of laboratory results Abnormal [facility] Potassium [Moles/Vol] 4.7 mmol/L 3.5 - 5.1 mmol/L [facility] Protein [Mass/Vol] 5.2 g/dL Low 6.3 - 8.2 g/dL [facility] Sodium [Moles/Vol] 137 mmol/L 135 - 145 mmol/L [facility] Urea nitrogen [Mass/Vol] 26 mg/dL High 7 - 17 mg/dL [facility] Laboratory - Chemistry and C hemistry - challengeon 02-27-2024 Glucose [Mass/Vol] 186 mg/dL High 70 - 100 mg/dL [facility] Glucose [Mass/Vol] 214 mg/dL High 70 - 100 mg/dL [facility] Glucose [Mass/Vol] 128 mg/dL High 70 - 100 mg/dL [facility] Glucose [Mass/Vol] 134 mg/dL High 70 - 100 mg/dL [facility] Glucose [Mass/Vol] 135 mg/dL High 70 - 100 mg/dL [facility] - Hematology and Cell countson 02-27-2024 Band form neutrophils (Bld) [#/Vol] 0.2 10*3/uL High NINF - 0.0 10*3/uL [facility] Band form neutrophils/100 WBC (Bld) 2 % High NINF - 0 % [facility] Basophils (Bld) [#/Vol] 0.3 10*3/uL High 0.0 - 0.2 10*3/uL [facility] Basophils/100 WBC (Bld) 3 % High 0 - 2 % [facility] Eosinophils (Bld) [#/Vol] 0.2 10*3/uL 0.0 - 0.5 10*3/uL [facility] Eosinophils/100 WBC (Bld) 2 % 0 - 6 % [facility] Lymphocytes (Bld) [#/Vol] 1.7 10*3/uL 1.0 - 4.3 10*3/uL [facility] Lymphocytes/100 WBC (Bld) 20 % 15 - 45 % [facility] Monocytes (Bld) [#/Vol] 0.3 10*3/uL 0.0 - 0.9 10*3/uL [facility] Monocytes/100 WBC (Bld) 4 % Low 5 - 13 % [facility] Myelocytes (Bld) [#/Vol] 0.3 10*3/uL High NINF - 0.0 10*3/uL [facility] Myelocytes/100 WBC (Bld) 3 % High NINF - 0 % [facility] Neutrophils (Bld) [#/Vol] 5.8 10*3/uL 1.8 - 7.5 10*3/uL [facility] Poikilocytosis LM Ql (Bld) Rare Abnormal (none) [facility] RBC morphology finding Nom (Bld) abnormal [facility] Segmented neutrophils/100 WBC (Bld) 66 % 38 - 82 % [facility] Stomatocytes LM Ql (Bld) Slight Abnormal (none) [facility] - Microbiology an d Antimicrobial susceptibilityOrdered By: Brady Tom on 02-27-2024 Bacteria identified Cx Nom (U) Normal urogenital krys present [facility] Bacteria identified Cx Nom (U) 10,000-50,000 CFU/mL Jose albicans Abnormal [facility] MANUAL DIFFERENTIAL (CELLAVI JESSICA)on 02-27-2024 BAND NEUTROPHILS TOTAL PER COUNTED LEUKOCYTES BY MANUAL COUNT 2 Normal [facility] Comment on above: Performed By: #### L AB103, LAB17 #### [employer]: STEVIE ELMORE ([id number]) [facility] (SBHLAB) [address] [place] [address] [place] BANDS (10*3/UL) IN BLOOD-CELLAVISION 0.2 10*3/uL High <=0.0 [facility] Comment on above: Performed By: #### L AB103, LAB17 #### [employer]: STEVIE ELMORE ([id number]) [facility] (SB[facility]) [address] [place] [address] [place] BASOPHILS (10*3/UL) IN BLOOD-CELLAVISION 0.3 10*3/uL High 0.0-0.2 [facility] Comment on above: Performed By: #### L AB103, LAB17 #### [employer]: STEVIE ELMORE ([id number]) [facility] (SB[facility]) [address] [place] [address] [place] BASOPHILS TOTAL PER COUNTED LEUKOCYTES BY MANUAL COUNT 3 Normal [facility] Comment on above: Performed By: #### L AB103, LAB17 #### [employer]: STEVIE ELMORE ([id number]) [facility] ([facility]) [address] [place] [address] [place] BASOPHILS/100 LEUKOCYTES IN BLOOD-CELLAVISION 3 % High 0-2 [facility] Comment on above: Performed By: #### L AB103, LAB17 #### [employer]: STEVIE ELMORE ([id number]) [facility] (SB[facility]AB) [address] [place] [address] [place] BLASTS TOTAL PER COUNTED LEUKOCYTES BY MANUAL COUNT Normal [facility] Comment on above: Performed By: #### L AB103, LAB17 #### [employer]: STEVIE ELMORE ([id number]) [facility] (SB[facility]) [address] [place] [address] [place] EOSINOPHILS (10*3/UL) IN BLOOD-CELLAVISION 0.2 10*3/uL Normal 0.0-0.5 [facility] Comment on above: Performed By: #### L AB103, LAB17 #### [employer]: STEVIE ELMORE ([id number]) [facility] ([facility]) [address] [place] [address] [place] EOSINOPHILS TOTAL PER COUNTED LEUKOCYTES BY MANUAL COUNT 2 High 0-1 [facility] Comment on above: Performed By: #### L AB103, LAB17 #### [employer]: STEVIE ELMORE ([id number]) [facility] [address] [place] [address] [place] EOSINOPHILS/100 LEUKOCYTES IN BLOOD-CELLAVISION 2 % Normal 0-6 [facility] Comment on above: Performed By: #### L AB103, LAB17 #### [employer]: STEVIE ELMORE ([id number]) [facility] ([facility] [address] [place] [address] [place] LYMPHOCYTES (10*3/UL) IN BLOOD-CELLAVISION 1.7 10*3/uL Normal 1.0-4.3 [facility] Comment on above: Performed By: #### L AB103, LAB17 #### [employer]: STEVIE ELMORE ([id number]) [facility] (SB[facility]) [address] [place] [address] [place] LYMPHOCYTES TOTAL PER COUNTED LEUKOCYTES BY MANUAL COUNT 20 Normal [facility] Comment on above: Performed By: #### L AB103, LAB17 #### [employer]: STEVIE ELMORE ([id number]) [facility] ([facility]) [address] [place] [address] [place] LYMPHOCYTES/100 LEUKOCYTES IN BLOOD-CELLAVISION 20 % Normal 15-45 [facility] Comment on above: Performed By: #### L AB103, LAB17 #### [employer]: STEVIE ELMORE ([id number]) [facility] (SB[facility]) [address] [place] [address] [place] METAMYELOCYTES TOTAL PER COUNTED LEUKOCYTES BY MANUAL COUNT Normal [facility] Comment on above: Performed By: #### L AB103, LAB17 #### [employer]: TSEVIE MOSQUEDACER ([id number]) [facility] (SB[facility]) [address] [place] [address] [place] MONOCYTES (10*3/UL) IN BLOOD-CELLAVISION 0.3 10*3/uL Normal 0.0-0.9 [facility] Comment on above: Performed By: #### L AB103, LAB17 #### [employer]: STEVIE ELMORE ([id number]) [facility] [address] [place] [address] [place] MONOCYTES TOTAL PER COUNTED LEUKOCYTES BY MANUAL COUNT 4 Normal [facility] Comment on above: Performed By: #### L AB103, LAB17 #### [employer]: STEVIE ELMORE ([id number]) [facility] ([facility] [address] [place] [address] [place] MONOCYTES/100 LEUKOCYTES IN BLOOD-JESSICA 4 % Low 5-13 [facility] Comment on above: Performed By: #### L AB103, LAB17 #### [employer]: STEVIE MOSQUEDACER ([id number]) [facility] ([facility]) [address] [place] [address] [place] MYELOCYTES (10*3/UL) IN BLOOD-CELLAVISION 0.3 10*3/uL High <=0.0 [facility] Comment on above: Performed By: #### L AB103, LAB17 #### [employer]: STEVIE ELMORE ([id number]) [facility] ([facility]) [address] [place] [address] [place] MYELOCYTES COUNTED BY MANUAL COUNT 3 Normal [facility] Comment on above: Performed By: #### L AB103, LAB17 #### [employer]: STEVIE ELMORE ([id number]) [facility] ([facility]) [address] [place] [address] [place] MYELOCYTES/100 LEUKOCYTES IN BLOOD-CELLAVISION 3 % High <=0 [facility] Comment on above: Performed By: #### L AB103, LAB17 #### [employer]: STEVIE ELMORE ([id number]) [facility] ([facility]) [address] [place] [address] [place] NEUTROPHILS BAND FORM/100 LEUKOCYTES IN BLOOD-CELLAVISI 2 % High <=0 [facility] Comment on above: Performed By: #### L AB103, LAB17 #### [employer]: STEVIE ELMORE ([id number]) [facility] ([facility]) [address] [place] [address] [place] NEUTROPHILS TOTAL PER COUNTED LEUKOCYTES BY MANUAL COUNT 67 Normal [facility] Comment on above: Performed By: #### L AB103, LAB17 #### [employer]: STEVIE ELMORE ([phone]) [facility] ([facility]) [address] [place] [address] [place] POIKILOCYTOSIS (PRESENCE) IN BLOOD BY LIGHT MICROSCOPY Rare Abnormal (none) [facility] Comment on above: Performed By: #### L AB103, LAB17 #### [employer]: STEVIE ELMORE ([phone]) [facility] ([facility]) [address] [place] [address] [place] PROMYELOCYTES TOTAL PER COUNTED LEUKOCYTES BY MANUAL COUNT [facility] [facility] Comment on above: Performed By: #### L AB103, LAB17 #### [employer]: STEVIE ELMORE ([id number]) [facility] (SBHLAB) [address] [place] [address] [place] RBC MORPHOLOGY IN BLOOD abnormal Normal [facility] Comment on above: Performed By: #### L AB103, LAB17 #### [employer]: STEVIE MOSQUEDACER ([id number]) [facility] [address] [place] [address] [place] SEGMENTED NEUTROPHILS (10*3/UL) IN BLOOD-CELLAVISION 5.8 10*3/uL Normal 1.8-7.5 [facility] Comment on above: Performed By: #### L AB103, LAB17 #### [employer]: STEVIE ELMORE ([id number]) [facility] [address] SEGMENTED NEUTROPHILS/100 LEUKOCYTES-CE 66 % Normal 38-82 [facility] Comment on above: Performed By: #### L AB103, LAB17 #### [employer]: STEVIE ELMORE ([id number]) [facility] (SBHLAB) [address] [place] [address] [place] STOMATOCYTES IN BLOOD BY LIGHT MICROSCOPY Slight Abnormal (none) [facility] Comment on above: Performed By: #### L AB103, LAB17 #### [employer]: STEVIE ELMORE ([id number]) [facility] (SB[facility]) [address] UNCLASSIFIED CELLS TOTAL PER COUNTED LEUKOCYTES BY MANUAL COUNT Normal [facility] Comment on above: Performed By: #### L AB103, LAB17 #### [employer]: STEVIE ELMORE ([id number]) [facility] (SB[facility]) [address] VARIANT LYMPHOCYTES TOTAL PER COUNTED LEUKOCYTES BY MANUAL COUNT Normal [facility] Comment on above: Performed By: #### L AB103, LAB17 #### [employer]: STEVIE ELMORE ([id number]) [facility] (SB[facility]) [address] No Panel Informationon 02-26 Interpretation and review of laboratory results Abnormal [facility] Interpretation and review of laboratory results Abnormal [facility] Interpretation and review of laboratory results Abnormal [facility] Interpretation and review of laboratory results Abnormal [facility] RADIOLOG[facility] Interpretation and review of laboratory results Abnormal [facility] Bands Manual 2 [facility] Basophils Manual 3 [facility] Eosinophils Manual 2 High 0 - 1 [facility] Interpretation and review of laboratory results Abnormal [facility] Lymphocytes Manual 20 [facility] Monocytes Manual 4 [facility] Myelocytes Manual 3 [facility] H ealth Neutrophils Manual 67 [facility] Radiology Study observation (narrative) [facility] Radiology Study observation (narrative) [facility] Radiology Study observation (narrative) [facility] Radiology Study observation (narrative) [facility] Radiology Study observation (narrative) [facility] No Panel InformationOrdered By: Tadeo Dasilva on 02-27-2024 [facility] Work Phone: Progress Noteon 02-27-2024 Progress Note [phone]: Please [facility] ([phone]) for patient care issues. [phone]: Please page [facility] Hospitalist for any issues. Subjective: Admit Date: 02/21/2024 PCP: Luyc Quick Room#: B2-255/B2-255 A This note is [...] 1.267 02/22/2024 Lab Results Component Value Date [id number] 294 02/22/2024 No results found for: VITD25 [...] mcg, Oral, Daily, Marisa Su APRN - MANAGER PHARMACY, 1,000 mcg at 02/27/24 0917 dextrose 5 % infusion, 100 mL/hr, IntraVENous, PRN, Shmuel Trevino MD dextrose 50 % solution 12.5 g, 12.5 g, IntraVENous, PRN, Shmuel Trevino MD enoxaparin (Lovenox) syringe 40 mg, 40 mg, SubCUTAneous, Daily, Shmuel Trevino MD, 40 mg at 02/27/24 09 ertapenem (INVanz) 1,000 mg i (more content not included)... Normal [facility] Progress Note [facility] Geriatric Medicine Inpatient Consult Service Admission [...] change in mental status. She resides at [facility]. Family reported has had several hospitalizations with similar symptoms particularly when associated UTI and bloodstream infection. Medical record shows several ED visits for change in mental status and hallucinations over past 6-9 months. History of bipolar disorder that has been under control. 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 Normal [facility] Progress Note Nutrition Assessment Type and Reason [...] muscle mass loss Fluid Accumulation: Mild Extremities Wool Presser Strength: Not Performed Nutrition Assessment: chart reviewed. Severe sepsis improved. Acute metabolic encephalopathy due to UTI- improving, ESBL- E coli bacteremia. PICC line planned. ID and Geriatrics following. 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 Pt sleeping on visit -awakened easily reports good appetite tolerating meals. Discharge planning to ECF -pt reports possible discharge today Estimated Daily Nutrient Needs: Energy Requirements Based On: Kcal/kg Weight Used for Energy Requirements: [place] Weight for Energy Calculation (kg): 57 kg Total Energy Requirements (kcals/day): 1425- 1710 (25-30 kcal/kg IBW) Weight Used for Protein Requirements: [place] Weight in Kg Used for Protein Requirements: [...] lb) (07/09/2023) % Weight Change (Calculated): -6.3 [place] Body Weight (lbs) (Calculated): 125 lbs [place] Body Weight (Kg) (Calculated): 57 kg % [place] Body Weight (Calculated): 188.2 % BMI (kg/m2) [...] Continue current diet Debbie Mccoy RD Contact: *[phone] or via Secure Chat Normal [facility] CBC W Auto Differential pane l (Bld)Ordered By: Alvaro Ivan on 02-26-2024 Erythrocyte distribution width (RBC) [Ratio] 14.7 % 11.5 - 15.0 % [facility] Hematocrit (Bld) [Volume fraction] 26.7 % Low 35.0 - 47.0 % [facility] Hemoglobin (Bld) [Mass/Vol] 8.2 g/dL Low 11.7 - 16.0 g/dL [facility] MCH (RBC) [Entitic mass] 28.5 pg 26.0 - 34.0 pg [facility] MCHC (RBC) [Mass/Vol] 30.7 % 30.5 - 36.0 % [facility] MCV (RBC) [Entitic vol] 92.7 fL 77.0 - 99.0 fL [facility] Platelet mean volume (Bld) [Entitic vol] 8.5 fL Low 9.0 - 12.7 fL [facility] Platelets (Bld) [#/Vol] 244 10*3/uL 140 - 440 10*3/uL [facility] RBC (Bld) [#/Vol] 2.88 10*6/uL Low 3.80 - 5.2 0 10*6/uL [facility] WBC (Bld) [#/Vol] 7.5 10*3/uL 3.6 - 10.7 10*3/uL [facility] CBC WITH AUTO DIFFERENTIALon 02-26-2024 Erythrocyte distribution width (RBC) [Ratio] 14.7 % Normal 11.5-15.0 [facility] Comment on above: Performed By: #### L [id number], [id number] ####[employer]: STEVIE ELMORE ([phone])[facility] [place] [address] Hematocrit (Bld) [Volume fraction] 26.7 % Low 35.0-47.0 [facility] Comment on above: Performed By: #### L [id number], [id number] ####[employer]: STEVIE ELMORE ([id number])[facility] [place] [address] Hemoglobin (Bld) [Mass/Vol] 8.2 g/dL Low 11.7-16.0 [facility] Comment on above: Performed By: #### L [id number], [id number] ####[employer]: STEVIE ELMORE ([id number])[facility] (SBHLAB)[address] [place] [address] MCH (RBC) [Entitic mass] 28.5 pg Normal 26.0-34.0 [facility] Comment on above: Performed By: #### L [id number], [id number] ####[employer]: STEVIE ELMORE ([id number])[facility])[address] MCHC 30.7 % Normal 30.5-36.0 [facility] Comment on above: Performed By: #### L [id number], [id number] ####[employer]: STEVIE ELMORE ([id number])[facility] (SBHLAB)[address] MCV (RBC) [Entitic vol] 92.7 fL Normal 77.0-99.0 [facility] Comment on above: Performed By: #### L [id number], [id number] ####[employer]: STEVIE ELMORE ([id number])[facility] (SBHLAB)[address] Platelet mean volume (Bld) [Entitic vol] 8.5 fL Low 9.0-12.7 [facility] Comment on above: Performed By: #### L [id number], [id number] ####[employer]: STEVIE ELMORE ([id number])[facility] (SBHLAB)[address] Platelets (Bld) [#/Vol] 244 10*3/uL Normal 140-440 [facility] Comment on above: Performed By: #### L [id number], [id number] ####[employer]: STEVIE ELMORE ([id number])[facility] (SBHLAB)[address] RBC (Bld) [#/Vol] 2.88 10*6/uL Low 3.80-5.20 [facility] Comment on above: Performed By: #### L [id number], [id number] ####[employer]: STEVIE ELMORE ([id number])[facility] [place] (SB[facility]AB)[address] WBC (Bld) [#/Vol] 7.5 10*3/uL Normal 3.6-10.7 [facility] Comment on above: Performed By: #### L [id number], [id number] ####[employer]: STEVIE ELMORE ([id number])[facility] (SBHLAB)[address] COMPREHENSIVE METABOLIC PANE Wade 02-26-2024 Albumin [Mass/Vol] 2.5 g/dL Low 3.5-5.0 [facility] Comment on above: Performed By: #### L AB103, LAB17 #### [employer]: STEVIE ELMORE ([id number]) [facility] (SB[facility]) [address] ALP [Catalytic activity/Vol] 75 U/L Normal 38-126 [facility] Comment on above: Performed By: #### L AB103, LAB17 #### [employer]: STEVIE ELMORE ([id number]) [facility] (SB[facility]) [address] ALT [Catalytic activity/Vol] 19 U/L Normal 0-34 [facility] Comment on above: Performed By: #### L AB103, LAB17 #### [employer]: STEVIE ELMORE ([id number]) [facility] (SB[facility]) [address] Anion gap [Moles/Vol] 0 mmol/L Low 3-13 [facility] Comment on above: Performed By: #### L AB103, LAB17 #### [employer]: STEVIE ELMORE ([id number]) [facility] (SB[facility]) [address] AST [Catalytic activity/Vol] 18 U/L Normal 15-46 [facility] Comment on above: Performed By: #### L AB103, LAB17 #### [employer]: STEVIE ELMORE ([id number]) [facility] (SB[facility]) [address] Bilirubin [Mass/Vol] 0.2 mg/dL Normal 0.2-1.3 [facility] Comment on above: Performed By: #### L AB103, LAB17 #### [employer]: STEVIE ELMORE ([id number]) [facility]ITAL[facility]OC[facility]OOSE[facility]ITALAden[facility] (SBHLAB) [address] Calcium [Mass/Vol] 8.5 mg/dL Normal 8.4-10.4 [facility] Comment on above: Performed By: #### L AB103, LAB17 #### [employer]: STEVIE ELMORE ([id number]) [facility]ITAL[facility]OC[facility]OO[facility]ITALN (SBHLAB) [address] [place] [address] [place] Chloride [Moles/Vol] 107 mmol/L Normal 98-107 [facility] Comment on above: Performed By: #### L AB103, LAB17 #### [employer]: STEVIE ELMORE ([id number]) [facility] (SBHLAB) [address] CO2 [Moles/Vol] 30 mmol/L Normal 22-30 [facility] Comment on above: Performed By: #### L AB103, LAB17 #### [employer]: STEVIE ELMORE ([id number]) [facility] (SB[facility]) [address] [place] [address] [place] Creatinine [Mass/Vol] 1.23 mg/dL High 0.52-1.04 [facility] Comment on above: Performed By: #### L AB103, LAB17 #### [employer]: STEVIE ELMORE ([id number]) [facility]ITAL[facility] (SBHLAB) [address] [place] [address] [place] GLOMERULAR FILTRATION RATE ML/MIN/1.73 SQ M.PREDICTED 48.6 mL/min/1.73m*2 Low >60.0 [facility] Comment on above: Result Comment: Calc ulation based on the Chronic Kidney Disease Epidemiology Collaboration (CKD-EPI) equation refit without adjustment for race Performed By: #### L AB103, LAB17 #### [employer]: STEVIE ELMORE ([id number]) [facility]ITAL[facility] (SBHLAB) [address] [place] [address] [place] Glucose [Mass/Vol] 113 mg/dL High 70-100 [facility] Comment on above: Performed By: #### L AB103, LAB17 #### [employer]: STEVIE ELMORE ([id number]) [facility] (SB[facility]) [address] Potassium [Moles/Vol] 4.2 mmol/L Normal 3.5-5.1 [facility] Comment on above: Performed By: #### L AB103, LAB17 #### [employer]: STEVIE ELMORE ([id number]) [facility] (SB[facility]) [address] Protein [Mass/Vol] 4.9 g/dL Low 6.3-8.2 [facility] Comment on above: Performed By: #### L AB103, LAB17 #### [employer]: STEVIE ELMORE ([id number]) [facility] (SB[facility]) [address] Sodium [Moles/Vol] 136 mmol/L Normal 135-145 [facility] Comment on above: Performed By: #### L AB103, LAB17 #### [employer]: STEVIE ELMORE ([id number]) [facility] (SB[facility]) [address] Urea nitrogen [Mass/Vol] 23 mg/dL High 7-17 [facility] Comment on above: Performed By: #### L AB103, LAB17 #### [employer]: STEVIE ELMORE ([id number]) [facility] (SB[facility]) [address] Comprehensive metabolic 1998 panelon 02-26-2024 Albumin [Mass/Vol] 2.5 g/dL Low 3.5 - 5.0 g/dL [facility] ALP [Catalytic activity/Vol] 75 U/L 38 - 126 U/L [facility] ALT [Catalytic activity/Vol] 19 U/L 0 - 34 U/L [facility] Anion gap [Moles/Vol] 0 mmol/L Low 3 - 13 mmol/L [facility] AST [Catalytic activity/Vol] 18 U/L 15 - 46 U/L [facility] Bilirubin [Mass/Vol] 0.2 mg/dL 0.2 - 1 .3 mg/dL [facility] Calcium [Mass/Vol] 8.5 mg/dL 8.4 - 10. 4 mg/dL [facility] Chloride [Moles/Vol] 107 mmol/L 98 - 10 7 mmol/L [facility] CO2 [Moles/Vol] 30 mmol/L 22 - 30 mmol/L [facility] Creatinine [Mass/Vol] 1.23 mg/dL High 0.52 - 1.04 mg/dL [facility] GFR/1.73 sq M.predicted MDRD (S/P/Bld) [Vol rate/Area] 48.6 mL/min/{1.73_m2} Low - PINF [facility] th Glucose [Mass/Vol] 113 mg/dL High 70 - 100 mg/dL [facility] Interpretation and review of laboratory results Abnormal [facility] Potassium [Moles/Vol] 4.2 mmol/L 3.5 - 5.1 mmol/L [facility] Protein [Mass/Vol] 4.9 g/dL Low 6.3 - 8.2 g/dL [facility] Sodium [Moles/Vol] 136 mmol/L 135 - 145 mmol/L [facility] Urea nitrogen [Mass/Vol] 23 mg/dL High 7 - 17 mg/dL [facility] Laboratory - Chemistry and C hemistry - challengeon 02-26-2024 Glucose [Mass/Vol] 207 mg/dL High 70 - 100 mg/dL [facility] Glucose [Mass/Vol] 186 mg/dL High 70 - 100 mg/dL [facility] Glucose [Mass/Vol] 97 mg/dL 70 - 100 mg/dL [facility] Glucose [Mass/Vol] 103 mg/dL High 70 - 100 mg/dL [facility] MANUAL DIFFERENTIALon 2023 ANISOCYTOSIS PRESENCE IN BLOOD BY LIGHT MICROSCOPY Slight Abnormal (none) [facility] Comment on above: Performed By: #### L [id number], [id number] ####[employer]: STEVIE ELMORE ([id number])[facility] ([facility])[address] [place] [address] BASOPHILIC STIPPLING PRESENCE IN BLOOD BY LIGHT MICROSCOPY Rare Abnormal (none) [facility] Comment on above: Performed By: #### L [id number], [id number] ####[employer]: STEVIE ELMORE ([id number])[facility] [place] (SB[facility])[address] CELLS COUNTED TOTAL (#) IN BLOOD 100 Normal [facility] Comment on above: Performed By: #### L [id number], [id number] ####[employer]: STEVIE ELMORE ([id number])[facility] (SBHLAB)[address] DIFFERENTIAL METHOD Manual differential performed Normal [facility] Comment on above: Performed By: #### L [id number], [id number] ####[employer]: STEVIE ELMORE ([id number])[facility])[address] [place] [address] [place] EOSINOPHILS (10*3/UL) IN BLOOD BY MANUAL COUNT 0.1 10*3/uL Normal 0.0-0.5 [facility] Comment on above: Performed By: #### L [id number], [id number] ####[employer]: STEVIE ELMORE ([id number])[facility]ITALN (HLAB)[address] EOSINOPHILS TOTAL PER COUNTED LEUKOCYTES BY MANUAL COUNT 1 Normal 0-1 [facility] Comment on above: Performed By: #### L [id number], [id number] ####[employer]: STEVIE ELMORE ([id number])[facility] [place] ([facility])[address] [place] [address] [place] EOSINOPHILS/100 LEUKOCYTES IN BLOOD BY MANUAL COUNT 1 % Normal 0-6 [facility] Comment on above: Performed By: #### L [id number], [id number] ####[employer]: STEVIE ELMORE ([id number])[facility] [place] ([facility])[address] [place] [address] [place] HYPOCHROMIA (PRESENCE) IN BLOOD BY LIGHT MICROSCOPY Slight Abnormal (none) [facility] Comment on above: Performed By: #### L [id number], [id number] ####[employer]: STEVIE ELMORE ([id number])[facility] [place] ([facility])[address] LEUKOCYTE MORPHOLOGY FINDING IN BLOOD Normal Normal [facility] Comment on above: Performed By: #### L [id number], [id number] ####[employer]: STEVIE ELMORE ([id number])[facility] [place] ([facility])[address] LEUKOCYTES (10*3/UL) NUCLEATED ERYTHROCYTE ADJUST 7.5 10*3/uL Normal 3.6-10.7 [facility] Comment on above: Performed By: #### L [id number], [id number] ####[employer]: STEVIE ELMORE ([id number])[facility] (SBHLAB)[address] [place] [address] [place] LYMPHOCYTES (10*3/UL) IN BLOOD BY MANUAL COUNT 2.0 10*3/uL Normal 1.0-4.3 [facility] Comment on above: Performed By: #### L [id number], [id number] ####[employer]: STEVIE ELMORE ([id number])[facility] (SBHLAB)[address] [place] [address] [place] LYMPHOCYTES TOTAL PER COUNTED LEUKOCYTES BY MANUAL COUNT 26 Normal [facility] Comment on above: Performed By: #### L [id number], [id number] ####[employer]: STEVIE LEMORE ([id number])[facility] [place] ([facility])[address] [place] [address] [place] LYMPHOCYTES/100 LEUKOCYTES IN BLOOD BY MANUAL COUNT 26 % Normal 15-45 [facility] Comment on above: Performed By: #### L [id number], [id number] ####[employer]: STEVIE ELMORE ([id number])[facility] [place] ([facility])[address] [place] [address] [place] MONOCYTES (10*3/UL) IN BLOOD BY MANUAL COUNT 0.8 10*3/uL Normal 0.0-0.9 [facility] Comment on above: Performed By: #### L [id number], [id number] ####[employer]: STEVIE ELMORE ([id number])[facility] [place] ([facility])[address] [place] [address] [place] MONOCYTES TOTAL PER COUNTED LEUKOCYTES BY MANUAL COUNT 10 Normal [facility] Comment on above: Performed By: #### L [id number], [id number] ####[employer]: STEVIE PUTNAMPERICO ([id number])[facility] [place] ([facility])[address] [place] [address] [place] MONOCYTES/100 LEUKOCYTES IN BLOOD BY MANUAL COUNT 10 % Normal 5-13 [facility] Comment on above: Performed By: #### L [id number], [id number] ####[employer]: STEVIE PUTNAMPERICO ([id number])[facility] [place] ([facility])[address] [place] [address] [place] MYELOCYTES (10*3/UL) IN BLOOD BY MANUAL COUNT 0.2 10*3/uL High <=0.0 [facility] Comment on above: Performed By: #### L [id number], [id number] ####[employer]: STEVIE ELMORE ([id number])[facility] [place] ([facility])[address] [place] [address] [place] MYELOCYTES COUNTED BY MANUAL COUNT 3 Normal [facility] Comment on above: Performed By: #### L IW3602, [id number] ####[employer]: STEVIE ELMORE ([id number])[facility] [place] ([facility])[address] [place] [address] [place] MYELOCYTES/100 LEUKOCYTES IN BLOOD BY MANUAL COUNT 3 % High <=0 [facility] Comment on above: Performed By: #### L [id number], [id number] ####[employer]: STEVIE ELMORE ([id number])[facility] [place] ([facility])[address] [place] [address] [place] NEUTROPHILS (SEGS+BANDS) (10*3/UL) BY MANUAL COUNT 4.4 10*3/uL Normal 1.8-7.0 [facility] Comment on above: Performed By: #### L PD0445, [id number] ####[employer]: STEVIE ELMORE ([id number])[facility] (SBHLAB)[address] [place] [address] [place] NEUTROPHILS TOTAL PER COUNTED LEUKOCYTES BY MANUAL COUNT 59 Normal [facility] Comment on above: Performed By: #### L [id number], [id number] ####[employer]: STEVIE ELMORE ([id number])[facility] (SB[facility])[address] [place] [address] [place] OVALOCYTES PRESENCE IN BLOOD BY LIGHT MICROSCOPY Slight Abnormal (none) [facility] Comment on above: Performed By: #### L [id number], [id number] ####[employer]: STEVIE ELMORE ([id number])[facility] [place] ([facility])[address] [place] [address] [place] PLATELET MORPHOLOGY IN BLOOD Normal Normal [facility] Comment on above: Performed By: #### L GP5685, JSD0429 ####[employer]: STEVIE ELMORE ([id number])[facility] [place] ([facility])[address] [place] [address] [place] POIKILOCYTOSIS (PRESENCE) IN BLOOD BY LIGHT MICROSCOPY Slight Abnormal (none) [facility] Comment on above: Performed By: #### L [id number], [id number] ####[employer]: STEVIE ELMORE ([id number])[facility] [place] ([facility])[address] [place] [address] [place] PROMYELOCYTES (10*3/UL) IN BLOOD BY MANUAL COUNT 0.1 10*3/uL High <=0.0 [facility] Comment on above: Performed By: #### L [id number], [id number] ####[employer]: STEVIE ELMORE ([id number])[facility] [place] ([facility])[address] [place] [address] [place] PROMYELOCYTES TOTAL PER COUNTED LEUKOCYTES BY MANUAL COUNT 1 Normal [facility] Comment on above: Performed By: #### L [id number], [id number] ####[employer]: STEVIE ELMORE ([id number])[facility] [place] ([facility])[address] PROMYELOCYTES/100 LEUKOCYTES BY MANUAL COUNT 1 % High <=0 [facility] Comment on above: Performed By: #### L WI6665, [id number] ####[employer]: STEVIE ELMORE ([id number])[facility] [place] ([facility])[address] SEGEMENTED NEUTROPHILS/100 LEUKOCYTES BY MANUAL COUNT 59 % Normal 38-82 [facility] Comment on above: Performed By: #### L [id number], IIL4742 ####[employer]: STEVIE ELMORE ([id number])[facility] [place] ([facility])[address] STOMATOCYTES IN BLOOD BY LIGHT MICROSCOPY Slight Abnormal (none) [facility] Comment on above: Performed By: #### L [id number], [id number] ####[employer]: STEVIE ELMORE ([id number])[facility] [place] ([facility])[address] [employer] CELLS IN BLOOD BY LIGHT MICROSCOPY Rare Abnormal (none) [facility] Comment on above: Performed By: #### L [id number], [id number] ####[employer]: STEVIE ELMORE ([id number])[facility] [place] ([facility])[address] Manual differential performe d Ql (Bld)on 02-26-2024 Anisocytosis Ql (Bld) Slight Abnormal (none) [facility] Basophilic stippling LM Ql (Bld) Rare Abnormal (none) [facility] Connotate Cells Counted Total (Bld) [#] 100 {cells} [facility] Connotate Differential Method Manual differential performed [facility] Connotate Eosinophils (Bld) [#/Vol] 0.1 10*3/uL 0.0 - 0.5 10*3/uL [facility] [facility] Eosin[facility] Manual 1 0 - 1 [facility] Eosinophils/100 WBC (Bld) 1 % 0 - 6 % [facility] Hypochromia Ql (Bld) Slight Abnormal (none) [facility] Leukocyte morphology finding Nom (Bld) Normal [facility] Lymphocytes (Bld) [#/Vol] 2.0 10*3/uL 1.0 - 4.3 10*3/uL [facility] Lymphocytes Manual 26 [facility] Lymphocytes/100 WBC (Bld) 26 % 15 - 45 % [facility] Monocytes (Bld) [#/Vol] 0.8 10*3/uL 0.0 - 0.9 10*3/uL [facility] Monocytes Manual 10 [facility] alth Monocytes/100 WBC (Bld) 10 % 5 - 13 % [facility] Myelocytes (Bld) [#/Vol] 0.2 10*3/uL High NINF - 0.0 10*3/uL [facility] Myelocytes Manual 3 [facility] ealth Myelocytes/100 WBC (Bld) 3 % High NINF - 0 % [facility] Neutrophils (Bld) [#/Vol] 4.4 10*3/uL 1.8 - 7.0 10*3/uL [facility] Neutrophils Manual 59 [facility] Ovalocytes LM Ql (Bld) Slight Abnormal (none) [facility] Platelet morphology finding Nom (Bld) Normal [facility] Poikilocytosis LM Ql (Bld) Slight Abnormal (none) [facility] Promyelocytes (Bld) [#/Vol] 0.1 10*3/uL High NINF - 0.0 10*3/uL [facility] Promyelocytes Manual 1 [facility] Promyelocytes/100 WBC (Bld) 1 % High NINF - 0 % [facility] Segmented neutrophils/100 WBC (Bld) 59 % 38 - 82 % [facility] Stomatocytes LM Ql (Bld) Slight Abnormal (none) [facility] Target cells LM Ql (Bld) Rare Abnormal (none) [facility] WBC corrected for nucl RBC (Bld) [#/Vol] 7.5 10*3/uL 3.6 - 10.7 10*3/uL [facility] No Panel Informationon 02-25 Interpretation and review of laboratory results Abnormal [facility] Interpretation and review of laboratory results Abnormal [facility] Interpretation and review of laboratory results Normal [facility] Interpretation and review of laboratory results Abnormal [facility] Radiology Study observation (narrative) [facility] Rad[facility] Study observation (narrative) [facility] Rad[facility] Study observation (narrative) [facility] Rad[facility] Study observation (narrative) [facility] No Panel InformationOrdered By: Alvaro Ivan on 02-26-2024 Interpretation and review of laboratory results Abnormal [facility] Progress Noteon 02-26-2024 Progress Note [id number]: Please pa jasen sd ([phone]) for patient care issues. [phone]: Please page [facility] Hospitalist for any issues. Subjective: Admit Date: [...] with Seroquel as needed [facility], she refuses PT and OT Will [...] Alexandro Cote Mobile Relation: Daughter Preferred language: Iraqi Welfare Aide needed? No Advance Directive: Full Code Discharge planning: TBD Ann Reed MD Division of Hospitalist Medicine Inpatient Medical Services/[facility] Normal [facility] Bacteria identified Cx Nom ( U)Ordered By: Janelle Morton on 02-25-2024 Interpretation and review of laboratory results Abnormal [facility] CBC W Auto Differential pane l (Bld)Ordered By: Shmuel Izaguirre on 02-25-2024 Basophils (Bld) [#/Vol] 0.0 10*3/uL 0.0 - 0.2 10*3/uL [facility] Basophils/100 WBC (Bld) 0.5 % 0.0 - 2.0 % [facility] Eosinophils (Bld) [#/Vol] 0.2 10*3/uL 0.0 - 0.5 10*3/uL [facility] Eosinophils/100 WBC (Bld) 2.8 % 0.0 - 6.0 % [facility] Erythrocyte distribution width (RBC) [Ratio] 14.8 % 11.5 - 15.0 % [facility] Hematocrit (Bld) [Volume fraction] 26.5 % Low 35.0 - 47.0 % [facility] Hemoglobin (Bld) [Mass/Vol] 8.1 g/dL Low 11.7 - 16.0 g/dL [facility] Immature granulocytes (Bld) [#/Vol] 0.3 10*3/uL High NINF - 0.1 10*3/uL [facility] Immature granulocytes/100 WBC (Bld) 4.5 % High 0.0 - 2.0 % [facility] Interpretation and review of laboratory results Abnormal [facility] Lymphocytes (Bld) [#/Vol] 2.0 10*3/uL 1.0 - 4.3 10*3/uL [facility] Lymphocytes/100 WBC (Bld) 30.8 % 15.0 - 45.0 % [facility] MCH (RBC) [Entitic mass] 28.1 pg 26.0 - 34.0 pg [facility] MCHC (RBC) [Mass/Vol] 30.6 % 30.5 - 36.0 % [facility] MCV (RBC) [Entitic vol] 92.0 fL 77.0 - 99.0 fL [facility] Monocytes (Bld) [#/Vol] 0.7 10*3/uL 0.0 - 0.9 10*3/uL [facility] Monocytes/100 WBC (Bld) 10.0 % 5.0 - 13.0 % [facility] Neutrophils (Bld) [#/Vol] 3.3 10*3/uL 1.8 - 7.5 10*3/uL [facility] Neutrophils/100 WBC (Bld) 51.4 % 38.0 - 82.0 % [facility] Nucleated RBC/100 WBC (Bld) [Ratio] 0.0 % [facility] Platelet mean volume (Bld) [Entitic vol] 8.6 fL Low 9.0 - 12.7 fL [facility] Platelets (Bld) [#/Vol] 210 10*3/uL 140 - 440 10*3/uL [facility] RBC (Bld) [#/Vol] 2.88 10*6/uL Low 3.80 - 5.2 0 10*6/uL [facility] WBC (Bld) [#/Vol] 6.5 10*3/uL 3.6 - 10.7 10*3/uL [facility] CBC WITH AUTO DIFFERENTIALon 02-25-2024 Basophils (Bld) [#/Vol] 0.0 10*3/uL Normal 0.0-0.2 [facility] Comment on above: Performed By: #### L AB103, LAB17 #### [employer]: STEVIE ELMORE ([id number]) [facility] [address] Basophils/100 WBC (Bld) 0.5 % Normal 0.0-2.0 [facility] Comment on above: Performed By: #### L AB103, LAB17 #### [employer]: STEVIE ELMORE ([id number]) [facility] (SBAB) [address] Eosinophils (Bld) [#/Vol] 0.2 10*3/uL Normal 0.0-0.5 [facility] Comment on above: Performed By: #### L AB103, LAB17 #### [employer]: STEVIE ELMORE ([id number]) [facility] [address] Eosinophils/100 WBC (Bld) 2.8 % Normal 0.0-6.0 [facility] Comment on above: Performed By: #### L AB103, LAB17 #### [employer]: STEVIE ELMORE ([id number]) [facility] (SBHLAB) [address] Erythrocyte distribution width (RBC) [Ratio] 14.8 % Normal 11.5-15.0 [facility] Comment on above: Performed By: #### L AB103, LAB17 #### [employer]: STEVIE MOYASuPERICO ([id number]) [facility] ([facility] [address] Hematocrit (Bld) [Volume fraction] 26.5 % Low 35.0-47.0 [facility] Comment on above: Performed By: #### L AB103, LAB17 #### [employer]: STEVIE MOYAFAHAD ([id number]) [facility] ([facility] [address] Hemoglobin (Bld) [Mass/Vol] 8.1 g/dL Low 11.7-16.0 [facility] Comment on above: Performed By: #### L AB103, LAB17 #### [employer]: STEVIE MOYAFAHAD ([id number]) [facility] ([facility]) [address] IMMATURE GRANS % 4.5 % High 0.0-2.0 [facility] Comment on above: Performed By: #### L AB103, LAB17 #### [employer]: STEVIE PUTNAMPERICO ([id number]) [facility] [address] IMMATURE GRANS ABSOLUTE 0.3 10*3/uL High <0.1 [facility] Comment on above: Performed By: #### L AB103, LAB17 #### [employer]: STEVIE PUTNAMPERICO ([id number]) [facility] [place] ([facility] [address] [place] [address] [place] Lymphocytes (Bld) [#/Vol] 2.0 10*3/uL Normal 1.0-4.3 [facility] Comment on above: Performed By: #### L AB103, LAB17 #### [employer]: STEVIE MOSQUEDACER ([id number]) [facility] (SBHLAB) [address] [place] [address] [place] Lymphocytes/100 WBC (Bld) 30.8 % Normal 15.0-45.0 [facility] Comment on above: Performed By: #### L AB103, LAB17 #### [employer]: STEVIE PUTNAMPERICO ([id number]) [facility] ([facility] [address] MCH (RBC) [Entitic mass] 28.1 pg Normal 26.0-34.0 [facility] Comment on above: Performed By: #### L AB103, LAB17 #### [employer]: STEVIE PUTNAMPERICO ([id number]) [facility] ([facility] [address] MCHC 30.6 % Normal 30.5-36.0 [facility] Comment on above: Performed By: #### L AB103, LAB17 #### [employer]: STEVIE PUTNAMPERICO ([id number]) [facility] (SBHL[facility]) [address] MCV (RBC) [Entitic vol] 92.0 fL Normal 77.0-99.0 [facility] Comment on above: Performed By: #### L AB103, LAB17 #### [employer]: STEVIE PUTNAMPERICO ([id number]) [facility] (SBHL[facility]) [address] Monocytes (Bld) [#/Vol] 0.7 10*3/uL Normal 0.0-0.9 [facility] Comment on above: Performed By: #### L AB103, LAB17 #### [employer]: STEVIE ELMORE ([id number]) [facility] ([facility]) [address] Monocytes/100 WBC (Bld) 10.0 % Normal 5.0-13.0 [facility] Comment on above: Performed By: #### L AB103, LAB17 #### [employer]: STEVIE ELMORE ([id number]) [facility] ([facility]) [address] NEUTROPHILS ABSOLUTE 3.3 10*3/uL Normal 1.8-7.5 [facility] Comment on above: Performed By: #### L AB103, LAB17 #### [employer]: STEVIE ELMORE ([id number]) [facility] [place] [facility] [address] Neutrophils/100 WBC (Bld) 51.4 % Normal 38.0-82.0 [facility] Comment on above: Performed By: #### L AB103, LAB17 #### [employer]: STEVIE ELMORE ([id number]) [facility] (SBHL[facility]) [address] NRBC 0.0 /100 WBCs Normal 0.0-2.0 [facility] Comment on above: Performed By: #### L AB103, LAB17 #### [employer]: STEVIE ELMORE ([id number]) [facility] (SBHL[facility]) [address] Platelet mean volume (Bld) [Entitic vol] 8.6 fL Low 9.0-12.7 [facility] Comment on above: Performed By: #### L AB103, LAB17 #### [employer]: STEVIE ELMORE ([id number]) [facility] [place] [facility] [address] Platelets (Bld) [#/Vol] 210 10*3/uL Normal 140-440 [facility] Comment on above: Performed By: #### L AB103, LAB17 #### [employer]: STEVIE ELMORE ([id number]) [facility] [place] ([facility] [address] RBC (Bld) [#/Vol] 2.88 10*6/uL Low 3.80-5.20 [facility] Comment on above: Performed By: #### L AB103, LAB17 #### [employer]: STEVIE ELMORE ([id number]) [facility] [place] [facility] [address] WBC (Bld) [#/Vol] 6.5 10*3/uL Normal 3.6-10.7 [facility] Comment on above: Performed By: #### L AB103, LAB17 #### [employer]: STEVIE ELMORE ([id number]) [facility] (SB[facility]) [address] COMPLETE URINALYSISon 2023 AMORPHOUS CRYSTALS (#/HPF) IN URINE Few Abnormal Negative [facility] Comment on above: Performed By: #### L AB103, LAB17 #### [employer]: STEVIE ELMORE ([id number]) [facility] (SB[facility]) [address] BACTERIA (#/HPF) IN URINE Few Abnormal Negative [facility] Comment on above: Performed By: #### L AB103, LAB17 #### [employer]: STEVIE ELMORE ([id number]) [facility] ([facility] [address] BILIRUBIN, TOTAL PRESENCE IN URINE Negative Normal Negative [facility] Comment on above: Performed By: #### L AB103, LAB17 #### [employer]: STEVIE ELMORE ([id number]) [facility] [place] [facility] [address] Clarity (U) Cloudy Abnormal Clear [facility] Comment on above: Performed By: #### L AB103, LAB17 #### [employer]: STEVIE ELMORE ([id number]) [facility] [place] ([facility] [address] Color (U) Yellow Normal Lt. Yellow [facility] Comment on above: Performed By: #### L AB103, LAB17 #### [employer]: STEVIE ELMORE ([id number]) [facility] ([facility] [address] [place] [address] [place] GLUCOSE (MG/DL) IN URINE Normal Normal Normal (<70) [facility] Comment on above: Performed By: #### L AB103, LAB17 #### [employer]: STEVIE ELMORE ([id number]) [facility] (SBHLAB) [address] HEMOGLOBIN PRESENCE IN URINE Negative Normal Negative [facility] Comment on above: Performed By: #### L AB103, LAB17 #### [employer]: STEVIE ELMORE ([id number]) [facility] (SBHLAB) [address] Ketones Ql (U) Negative Normal Negative [facility] Comment on above: Performed By: #### L AB103, LAB17 #### [employer]: STEVIE ELMORE ([id number]) [facility] (SBHLAB) [address] LEUKOCYTE ESTERASE PRESENCE IN URINE BY TEST STRIP 500 Ha/uL Abnormal Negative [facility] Comment on above: Performed By: #### L AB103, LAB17 #### [employer]: STEVIE ELMORE ([id number]) [facility] (SBHLAB) [address] [place] [address] [place] MUCUS (#/LPF) IN URINE SEDIMENT Few Normal Negative [facility] Comment on above: Performed By: #### L AB103, LAB17 #### [employer]: STEVIE ELMORE ([id number]) [facility] (SBHLAB) [address] [place] [address] [place] NITRITE PRESENCE IN URINE Negative Normal Negative [facility] Comment on above: Performed By: #### L AB103, LAB17 #### [employer]: STEVIE ELMORE ([id number]) [facility] (SBHLAB) [address] [place] [address] [place] NON-SQUAMOUS EPITHELIAL (#/HPF) IN URINE 0-2 Abnormal Negative [facility] Comment on above: Performed By: #### L AB103, LAB17 #### [employer]: STEVIE ELMORE ([id number]) [facility] (SBHLAB) [address] pH (U) 6.0 [pH] Normal 5.0-8.0 [facility] Comment on above: Performed By: #### L AB103, LAB17 #### [employer]: STEVIE ELMORE ([id number]) [facility] ([facility] [address] Protein (U) [Mass/Vol] 30 mg/dL Abnormal Negative [facility] Comment on above: Performed By: #### L AB103, LAB17 #### [employer]: STEVIE ELMORE ([id number]) [facility] (SBHL[facility]) [address] [place] [address] [place] RBC (#/HPF) IN URINE SEDIMENT 0-2 Normal 0-2 [facility] Comment on above: Performed By: #### L AB103, LAB17 #### [employer]: STEVIE ELMORE ([id number]) [facility] (SBHL[facility]) [address] Specific gravity (U) [Rel density] 1.018 Normal 1.005-1.030 [facility] Comment on above: Performed By: #### L AB103, LAB17 #### [employer]: STEVIE ELMORE ([id number]) [facility] ([facility]) [address] SQUAMOUS EPITHELIAL CELLS (#/HPF) IN URINE SEDIMENT 11-25 Abnormal 3-5 [facility] Comment on above: Performed By: #### L AB103, LAB17 #### [employer]: STEVIE ELMORE ([id number]) [facility] (SBHLAB) [address] [place] [address] [place] UROBILINOGEN (MG/DL) IN URINE Normal Normal Normal (0-1) [facility] Comment on above: Performed By: #### L AB103, LAB17 #### [employer]: STEVIE ELMORE ([id number]) [facility] [address] [place] [address] [place] WBC (LEUKOCYTE) (#/HPF) IN URINE SEDIMENT 11-25 Abnormal 0-5 [facility] Comment on above: Performed By: #### L AB103, LAB17 #### [employer]: STEVIE ELMORE ([id number]) [facility] [place] (SB[facility]) [address] COMPREHENSIVE METABOLIC PANE Wade 02-25-2024 Albumin [Mass/Vol] 2.3 g/dL Low 3.5-5.0 [facility] Comment on above: Performed By: #### L AB103, LAB17 #### [employer]: STEVIE ELMORE ([id number]) [facility] [place] ([facility]) [address] ALP [Catalytic activity/Vol] 63 U/L Normal 38-126 [facility] Comment on above: Performed By: #### L AB103, LAB17 #### [employer]: STEVIE ELMORE ([id number]) [facility] (SBHL[facility]) [address] [place] [address] [place] ALT [Catalytic activity/Vol] 20 U/L Normal 0-34 [facility] Comment on above: Performed By: #### L AB103, LAB17 #### [employer]: STEVIE ELMORE ([id number]) [facility] [place] ([facility]) [address] Anion gap [Moles/Vol] 1 mmol/L Low 3-13 [facility] Comment on above: Performed By: #### L AB103, LAB17 #### [employer]: STEVIE ELMORE ([id number]) [facility] (SB[facility]) [address] [place] [address] [place] AST [Catalytic activity/Vol] 18 U/L Normal 15-46 [facility] Comment on above: Performed By: #### L AB103, LAB17 #### [employer]: STEVIE ELMORE ([id number]) [facility] (SBHLAB) [address] [place] [address] [place] Bilirubin [Mass/Vol] 0.2 mg/dL Normal 0.2-1.3 [facility] Comment on above: Performed By: #### L AB103, LAB17 #### [employer]: STEVIE ELMORE ([id number]) [facility] (SBHLAB) [address] Calcium [Mass/Vol] 8.3 mg/dL Low 8.4-10.4 [facility] Comment on above: Performed By: #### L AB103, LAB17 #### [employer]: STEVIE ELMORE ([id number]) [facility] (SBHLAB) [address] Chloride [Moles/Vol] 106 mmol/L Normal 98-107 [facility] Comment on above: Performed By: #### L AB103, LAB17 #### [employer]: STEVIE ELMORE ([id number]) [facility] (SBHLAB) [address] CO2 [Moles/Vol] 28 mmol/L Normal 22-30 [facility] Comment on above: Performed By: #### L AB103, LAB17 #### [employer]: STEVIE ELMORE ([id number]) [facility] (HLAB) [address] Creatinine [Mass/Vol] 1.25 mg/dL High 0.52-1.04 [facility] Comment on above: Performed By: #### L AB103, LAB17 #### [employer]: STEVIE ELMORE ([id number]) [facility] (SBHLAB) [address] [place] [address] [place] GLOMERULAR FILTRATION RATE ML/MIN/1.73 SQ M.PREDICTED 47.6 mL/min/1.73m*2 Low >60.0 [facility] Comment on above: Result Comment: Calc ulation based on the Chronic Kidney Disease Epidemiology Collaboration (CKD-EPI) equation refit without adjustment for race Performed By: #### L AB103, LAB17 #### [employer]: STEVIE [id number]) [facility] [place] (SBHLAB) [address] Glucose [Mass/Vol] 149 mg/dL High 70-100 [facility] Comment on above: Performed By: #### L AB103, LAB17 #### [employer]: STEVIE ELMORE ([id number]) [facility] (SB[facility]) [address] Potassium [Moles/Vol] 4.0 mmol/L Normal 3.5-5.1 [facility] Comment on above: Performed By: #### L AB103, LAB17 #### [employer]: STEVIE ELMORE ([id number]) [facility] [place] ([facility]) [address] Protein [Mass/Vol] 4.7 g/dL Low 6.3-8.2 [facility] Comment on above: Performed By: #### L AB103, LAB17 #### [employer]: STEVIE ELMORE ([id number]) [facility] [place] ([facility]) [address] Sodium [Moles/Vol] 135 mmol/L Normal 135-145 [facility] Comment on above: Performed By: #### L AB103, LAB17 #### [employer]: STEVIE ELMORE ([id number]) [facility] (SBHL[facility]) [address] [place] [address] [place] Urea nitrogen [Mass/Vol] 28 mg/dL High 7-17 [facility] Comment on above: Performed By: #### L AB103, LAB17 #### [employer]: STEVIE ELMORE ([id number]) [facility] (SBHLAB) [address] Comprehensive metabolic 1998 panelon 02-25-2024 Albumin [Mass/Vol] 2.3 g/dL Low 3.5 - 5.0 g/dL [facility] ALP [Catalytic activity/Vol] 63 U/L 38 - 126 U/L [facility] ALT [Catalytic activity/Vol] 20 U/L 0 - 34 U/L [facility] Anion gap [Moles/Vol] 1 mmol/L Low 3 - 13 mmol/L [facility] AST [Catalytic activity/Vol] 18 U/L 15 - 46 U/L [facility] Bilirubin [Mass/Vol] 0.2 mg/dL 0.2 - 1 .3 mg/dL [facility] Calcium [Mass/Vol] 8.3 mg/dL Low 8.4 - 10. 4 mg/dL [facility] Chloride [Moles/Vol] 106 mmol/L 98 - 10 7 mmol/L [facility] CO2 [Moles/Vol] 28 mmol/L 22 - 30 mmol/L [facility] Creatinine [Mass/Vol] 1.25 mg/dL High 0.52 - 1.04 mg/dL [facility] GFR/1.73 sq M.predicted MDRD (S/P/Bld) [Vol rate/Area] 47.6 mL/min/{1.73_m2} Low - PINF [facility] th Glucose [Mass/Vol] 149 mg/dL High 70 - 100 mg/dL [facility] Interpretation and review of laboratory results Abnormal [facility] Potassium [Moles/Vol] 4.0 mmol/L 3.5 - 5.1 mmol/L [facility] Protein [Mass/Vol] 4.7 g/dL Low 6.3 - 8.2 g/dL [facility] Sodium [Moles/Vol] 135 mmol/L 135 - 145 mmol/L [facility] Urea nitrogen [Mass/Vol] 28 mg/dL High 7 - 17 mg/dL [facility] Laboratory - Chemistry and C hemistry - challengeon 02-25-2024 Glucose [Mass/Vol] 158 mg/dL High 70 - 100 mg/dL [facility] Glucose [Mass/Vol] 161 mg/dL High 70 - 100 mg/dL [facility] Glucose [Mass/Vol] 117 mg/dL High 70 - 100 mg/dL [facility] Glucose [Mass/Vol] 105 mg/dL High 70 - 100 mg/dL [facility] Laboratory - Microbiology an d Antimicrobial susceptibilityOrdered By: Janelle Morton on 02-25-2024 Bacteria identified Cx Nom (U) Normal urogenital krys present [facility] Bacteria identified Cx Nom (U) >100,000 CFU/mL Escherichia coli Abnormal [facility] Bacteria identified Cx Nom (U) >100,000 CFU/mL Enterococcus faecalis Abnormal [facility] No Panel Informationon 02-24 Interpretation and review of laboratory results Abnormal [facility] Interpretation and review of laboratory results Abnormal [facility] Interpretation and review of laboratory results Abnormal [facility] Interpretation and review of laboratory results Abnormal [facility] Radiology Study observation [facility]narrative[facility]narrative) [facility] Rad[facility] Study observation (narrative) [facility] Rad[facility] Study observation (narrative) [facility] Progress Noteon 02-25-2024 Progress Note [facility] Geriatric Medicine Inpatient Consult Service Admission Date: [...] change in mental status. She resides at [facility]. Family reported has had several hospitalizations with [...] % cream, , Topical, BID, Manisha Tao [employer], Given at 02/25/24 09 methenamine hippurate (Hiprex) tablet 1 g, 1 g, Oral, BID, Rob Lai MD, 1 g at 02/25/24 0913 metoprolol succinat (more content not included)... Normal [facility] Progress Note [id number]: Please [facility] ([phone]) for patient care issues. [phone]: Please page [facility] night Hospitalist for any issues. Subjective: Admit Date: 02/21/2024 PCP: Lucy Quick Room#: B2-255/B2-648 Giancarlo Patel is a 68 y.o. female [...] reviewed, continue with Seroquel [facility], she refuses PT and OT Will [...] Alexandro Cote Mobile Relation: Daughter Preferred language: [place] Welfare Aide needed? No Advance Directive: Full Code Discharge planning: TBD Ann Reed MD Division of Hospitalist Medicine Inpatient Medical Services/[facility] URINE CULTUREon 02-25-2024 Bacteria identified Cx Nom (U) URINE CULTURE Reference Normal urogenital krys present JOSE ALBICANS 10,000-50,000 CFU/mL Jose albicans (A) [ S = SUSCEPTIBLE R = RESISTANT I = INTERMEDIATE S-DD = Susceptible-dose dependent NS = Non-susceptible NO = No Interpretation ] [facility] Comment on above: Order Comment: Use e xisting specimen Performed By: #### L [id number] ####[employer]: SILVIA FRENCH ([id number])[facility] ([address] Urinalysis complete panel (U )Ordered By: Madison Jackson on 02-25-2024 Amorphous Crystals, Urine Few Abnormal Negative /HPF [facility] Bacteria LM.HPF (Urine sed) [#/Area] Few Abnormal Negative /HPF [facility] Bilirubin Ql (U) Negative Negative mg/dL [facility] Clarity (U) Cloudy Abnormal Clear [facility] Color (U) Yellow Lt. Yellow [facility] Epithelial cells.squamous LM.HPF (Urine sed) [#/Area] 11-25 Abnormal [facility] Glucose Ql (U) Normal Normal (<70) mg/dL [facility] Hemoglobin Ql (U) Negative Negative mg/dL [facility] Interpretation and review of laboratory results Abnormal [facility] Ketones (U) [Mass/Vol] Negative Negat rhonad mg/dL [facility] Leukocyte esterase Test strip Ql (U) 500 Abnormal Negative Ha/uL [facility] Mucus LM.HPF (Urine sed) [#/Area] Few Negative /LPF [facility] Nitrite Ql (U) Negative Negative [facility] Non-Squamous Epithalial Cells, Urine 0-2 Abnormal Negative /HPF [facility] pH (U) 6.0 [pH] 5.0 - 8.0 pH [facility] Protein (U) [Mass/Vol] 30 mg/dL Abnormal Negative [facility] RBC LM.HPF (Urine sed) [#/Area] 0-2 [facility] Specific gravity (U) [Rel density] 1.018 1.005 - 1.030 [facility] Urobilinogen (U) [Mass/Vol] Normal Normal (0-1) mg/dL [facility] WBC LM.HPF (Urine sed) [#/Area] 11-25 Abnormal [facility] Bacteria identified Cx Nom ( Bld)Ordered By: Sravanthi White on 02-24-2024 Interpretation and review of laboratory results Abnormal [facility] CBC W Auto Differential pane l (Bld)on 02-24-2024 Basophils (Bld) [#/Vol] 0.0 10*3/uL 0.0 - 0.2 10*3/uL [facility] Basophils/100 WBC (Bld) 0.2 % 0.0 - 2.0 % [facility] Eosinophils (Bld) [#/Vol] 0.2 10*3/uL 0.0 - 0.5 10*3/uL [facility] Eosinophils/100 WBC (Bld) 2.2 % 0.0 - 6.0 % [facility] Erythrocyte distribution width (RBC) [Ratio] 15.1 % High 11.5 - 15.0 % [facility] Hematocrit (Bld) [Volume fraction] 27.7 % Low 35.0 - 47.0 % [facility] Hemoglobin (Bld) [Mass/Vol] 8.6 g/dL Low 11.7 - 16.0 g/dL [facility] Immature granulocytes (Bld) [#/Vol] 0.3 10*3/uL High NINF - 0.1 10*3/uL [facility] Immature granulocytes/100 WBC (Bld) 3.9 % High 0.0 - 2.0 % [facility] Interpretation and review of laboratory results Abnormal [facility] Lymphocytes (Bld) [#/Vol] 1.9 10*3/uL 1.0 - 4.3 10*3/uL [facility] Lymphocytes/100 WBC (Bld) 22.7 % 15.0 - 45.0 % [facility] MCH (RBC) [Entitic mass] 28.4 pg 26.0 - 34.0 pg [facility] MCHC (RBC) [Mass/Vol] 31.0 % 30.5 - 36.0 % [facility] MCV (RBC) [Entitic vol] 91.4 fL 77.0 - 99.0 fL [facility] Monocytes (Bld) [#/Vol] 1.0 10*3/uL High 0.0 - 0.9 10*3/uL [facility] Monocytes/100 WBC (Bld) 12.4 % 5.0 - 13.0 % [facility] Neutrophils (Bld) [#/Vol] 4.9 10*3/uL 1.8 - 7.5 10*3/uL [facility] Neutrophils/100 WBC (Bld) 58.6 % 38.0 - 82.0 % [facility] Nucleated RBC/100 WBC (Bld) [Ratio] 0.0 % [facility] Platelet mean volume (Bld) [Entitic vol] 8.9 fL Low 9.0 - 12.7 fL [facility] Platelets (Bld) [#/Vol] 196 10*3/uL 140 - 440 10*3/uL [facility] RBC (Bld) [#/Vol] 3.03 10*6/uL Low 3.80 - 5.2 0 10*6/uL [facility] WBC (Bld) [#/Vol] 8.3 10*3/uL 3.6 - 10.7 10*3/uL [facility] CBC WITH AUTO DIFFERENTIALon 02-24-2024 Basophils (Bld) [#/Vol] 0.0 10*3/uL Normal 0.0-0.2 [facility] Comment on above: Performed By: #### L AB103, LAB17 #### [employer]: STEVIE ELMORE ([id number]) [facility] ([facility]) [address] Basophils/100 WBC (Bld) 0.2 % Normal 0.0-2.0 [facility] Comment on above: Performed By: #### L AB103, LAB17 #### [employer]: STEVIE ELMORE ([id number]) [facility] ([facility]) [address] Eosinophils (Bld) [#/Vol] 0.2 10*3/uL Normal 0.0-0.5 [facility] Comment on above: Performed By: #### L AB103, LAB17 #### [employer]: STEVIE ELMORE ([id number]) [facility] [place] [facility] [address] Eosinophils/100 WBC (Bld) 2.2 % Normal 0.0-6.0 [facility] Comment on above: Performed By: #### L AB103, LAB17 #### [employer]: STEVIE ELMORE ([id number]) [facility] [place] ([facility] [address] Erythrocyte distribution width (RBC) [Ratio] 15.1 % High 11.5-15.0 [facility] Comment on above: Performed By: #### L AB103, LAB17 #### [employer]: STEVIE ELMORE ([id number]) [facility] [place] ([facility] [address] Hematocrit (Bld) [Volume fraction] 27.7 % Low 35.0-47.0 [facility] Comment on above: Performed By: #### L AB103, LAB17 #### [employer]: STEVIE ELMORE ([id number]) [facility] [place] ([facility] [address] Hemoglobin (Bld) [Mass/Vol] 8.6 g/dL Low 11.7-16.0 [facility] Comment on above: Performed By: #### L AB103, LAB17 #### [employer]: STEVIE ELMORE ([id number]) [facility] ([facility] [address] IMMATURE GRANS % 3.9 % High 0.0-2.0 [facility] Comment on above: Performed By: #### L AB103, LAB17 #### [employer]: STEVIE ELMORE ([id number]) [facility] ([facility]) [address] IMMATURE GRANS ABSOLUTE 0.3 10*3/uL High <0.1 [facility] Comment on above: Performed By: #### L AB103, LAB17 #### [employer]: STEVIE MOSQUEDACER ([id number]) [facility] ([facility]AB) [address] Lymphocytes (Bld) [#/Vol] 1.9 10*3/uL Normal 1.0-4.3 [facility] Comment on above: Performed By: #### L AB103, LAB17 #### [employer]: STEVIE ELMORE ([id number]) [facility] ([facility]) [address] Lymphocytes/100 WBC (Bld) 22.7 % Normal 15.0-45.0 [facility] Comment on above: Performed By: #### L AB103, LAB17 #### [employer]: STEVIE ELMORE ([id number]) [facility] ([facility]) [address] MCH (RBC) [Entitic mass] 28.4 pg Normal 26.0-34.0 [facility] Comment on above: Performed By: #### L AB103, LAB17 #### [employer]: STEVIE ELMORE ([id number]) [facility] ([facility]) [address] MCHC 31.0 % Normal 30.5-36.0 [facility] Comment on above: Performed By: #### L AB103, LAB17 #### [employer]: STEVIE MOYASuPERICO ([id number]) [facility] ([facility]) [address] MCV (RBC) [Entitic vol] 91.4 fL Normal 77.0-99.0 [facility] Comment on above: Performed By: #### L AB103, LAB17 #### [employer]: STEVIE MOYAFAHAD ([id number]) [facility] [place] [address] Monocytes (Bld) [#/Vol] 1.0 10*3/uL High 0.0-0.9 [facility] Comment on above: Performed By: #### L AB103, LAB17 #### [employer]: STEVIE MOYAFAHAD ([id number]) [facility] ([facility]) [address] Monocytes/100 WBC (Bld) 12.4 % Normal 5.0-13.0 [facility] Comment on above: Performed By: #### L AB103, LAB17 #### [employer]: STEVIE PUTNAMPERICO ([id number]) [facility] ([facility]) [address] NEUTROPHILS ABSOLUTE 4.9 10*3/uL Normal 1.8-7.5 [facility] Comment on above: Performed By: #### L AB103, LAB17 #### [employer]: STEVIE MOYAFAHAD ([id number]) [facility] ([facility]) [address] Neutrophils/100 WBC (Bld) 58.6 % Normal 38.0-82.0 [facility] Comment on above: Performed By: #### L AB103, LAB17 #### [employer]: STEVIE ELMORE ([id number]) [facility] ([facility]) [address] NRBC 0.0 /100 WBCs Normal 0.0-2.0 [facility] Comment on above: Performed By: #### L AB103, LAB17 #### [employer]: STEVIE ELMORE ([id number]) [facility] ([facility]) [address] Platelet mean volume (Bld) [Entitic vol] 8.9 fL Low 9.0-12.7 [facility] Comment on above: Performed By: #### L AB103, LAB17 #### [employer]: STEVIE ELMORE ([id number]) [facility] ([facility]) [address] Platelets (Bld) [#/Vol] 196 10*3/uL Normal 140-440 [facility] Comment on above: Performed By: #### L AB103, LAB17 #### [employer]: STEVIE ELMORE ([id number]) [facility] ([facility]) [address] RBC (Bld) [#/Vol] 3.03 10*6/uL Low 3.80-5.20 [facility] Comment on above: Performed By: #### L AB103, LAB17 #### [employer]: STEVIE ELMORE ([id number]) [facility] ([facility]) [address] WBC (Bld) [#/Vol] 8.3 10*3/uL Normal 3.6-10.7 [facility] Comment on above: Performed By: #### L AB103, LAB17 #### [employer]: STEVIE ELMORE ([id number]) [facility] ([facility]) [address] COMPREHENSIVE METABOLIC PANE Wade 02-24-2024 Albumin [Mass/Vol] 2.6 g/dL Low 3.5-5.0 [facility] Comment on above: Performed By: #### L AB103, LAB17 #### [employer]: STEVIE ELMORE ([id number]) [facility] [place] [facility] [address] [place] [address] [place] ALP [Catalytic activity/Vol] 66 U/L Normal 38-126 [facility] Comment on above: Performed By: #### L AB103, LAB17 #### [employer]: STEVIE ELMORE ([id number]) [facility] ([facility] [address] [place] [address] [place] ALT [Catalytic activity/Vol] 24 U/L Normal 0-34 [facility] Comment on above: Performed By: #### L AB103, LAB17 #### [employer]: STEVIE ELMORE ([id number]) [facility] ([facility] [address] Anion gap [Moles/Vol] 3 mmol/L Normal 3-13 [facility] Comment on above: Performed By: #### L AB103, LAB17 #### [employer]: STEVIE ELMORE ([id number]) [facility] ([facility] [address] [place] [address] [place] AST [Catalytic activity/Vol] 27 U/L Normal 15-46 [facility] Comment on above: Performed By: #### L AB103, LAB17 #### [employer]: STEVIE ELMORE ([id number]) [facility] ([facility] [address] [place] [address] [place] Bilirubin [Mass/Vol] 0.3 mg/dL Normal 0.2-1.3 [facility] Comment on above: Performed By: #### L AB103, LAB17 #### [employer]: STEVIE ELMORE ([id number]) [facility] [place] [facility] [address] [place] [address] [place] Calcium [Mass/Vol] 8.5 mg/dL Normal 8.4-10.4 [facility] Comment on above: Performed By: #### L AB103, LAB17 #### [employer]: STEVIE ELMORE ([id number]) [facility] [place] ([facility] [address] [place], [place] [id number] [place] [address] Chloride [Moles/Vol] 102 mmol/L Normal 98-107 [facility] Comment on above: Performed By: #### L AB103, LAB17 #### [employer]: STEVIE ELMORE ([id number]) [facility] ([facility]) [address] [place], [place] [id number] [place] [address] CO2 [Moles/Vol] 30 mmol/L Normal 22-30 [facility] Comment on above: Performed By: #### L AB103, LAB17 #### [employer]: STEVIE LEMORE ([id number]) [facility] [address] Creatinine [Mass/Vol] 1.42 mg/dL High 0.52-1.04 [facility] Comment on above: Performed By: #### L AB103, LAB17 #### [employer]: STEVIE ELMORE ([id number]) [facility] ([facility]) [address] GLOMERULAR FILTRATION RATE ML/MIN/1.73 SQ M.PREDICTED 40.9 mL/min/1.73m*2 Low >60.0 [facility] Comment on above: Result Comment: Calc ulation based on the Chronic Kidney Disease Epidemiology Collaboration (CKD-EPI) equation refit without adjustment for race Performed By: #### L AB103, LAB17 #### [employer]: STEVIE ELMORE ([id number]) [facility] ([facility]) [address] [place] [address] [place] Glucose [Mass/Vol] 105 mg/dL High 70-100 [facility] Comment on above: Performed By: #### L AB103, LAB17 #### [employer]: STEVIE ELMORE ([id number]) [facility] ([facility]) [address] Potassium [Moles/Vol] 3.4 mmol/L Low 3.5-5.1 [facility] Comment on above: Performed By: #### L AB103, LAB17 #### [employer]: STEVIE ELMORE ([id number]) [facility] ([facility]) [address] Protein [Mass/Vol] 5.2 g/dL Low 6.3-8.2 [facility] Comment on above: Performed By: #### L AB103, LAB17 #### [employer]: STEVIE ELMORE ([id number]) [facility] ([facility]) [address] Sodium [Moles/Vol] 135 mmol/L Normal 135-145 [facility] Comment on above: Performed By: #### L AB103, LAB17 #### [employer]: STEVIE ELMORE ([id number]) [facility] ([facility]) [address] Urea nitrogen [Mass/Vol] 33 mg/dL High 7-17 [facility] Comment on above: Performed By: #### L AB103, LAB17 #### [employer]: STEVIE ELMORE ([id number]) [facility] ([facility]) [address] Comprehensive metabolic 1998 panelon 02-24-2024 Albumin [Mass/Vol] 2.6 g/dL Low 3.5 - 5.0 g/dL [facility] ALP [Catalytic activity/Vol] 66 U/L 38 - 126 U/L [facility] ALT [Catalytic activity/Vol] 24 U/L 0 - 34 U/L [facility] Anion gap [Moles/Vol] 3 mmol/L 3 - 13 mmol/L [facility] AST [Catalytic activity/Vol] 27 U/L 15 - 46 U/L [facility] Bilirubin [Mass/Vol] 0.3 mg/dL 0.2 - 1 .3 mg/dL [facility] Calcium [Mass/Vol] 8.5 mg/dL 8.4 - 10. 4 mg/dL [facility] Chloride [Moles/Vol] 102 mmol/L 98 - 10 7 mmol/L [facility] CO2 [Moles/Vol] 30 mmol/L 22 - 30 mmol/L [facility] Creatinine [Mass/Vol] 1.42 mg/dL High 0.52 - 1.04 mg/dL [facility] GFR/1.73 sq M.predicted MDRD (S/P/Bld) [Vol rate/Area] 40.9 mL/min/{1.73_m2} Low - PINF [facility] Glucose [Mass/Vol] 105 mg/dL High 70 - 100 mg/dL [facility] Interpretation and review of laboratory results Abnormal [facility] Potassium [Moles/Vol] 3.4 mmol/L Low 3.5 - 5.1 mmol/L [facility] Protein [Mass/Vol] 5.2 g/dL Low 6.3 - 8.2 g/dL [facility] Sodium [Moles/Vol] 135 mmol/L 135 - 145 mmol/L [facility] Urea nitrogen [Mass/Vol] 33 mg/dL High 7 - 17 mg/dL [facility] Laboratory - Chemistry and C hemistry - challengeon 02-24-2024 Glucose [Mass/Vol] 204 mg/dL High 70 - 100 mg/dL [facility] Glucose [Mass/Vol] 140 mg/dL High 70 - 100 mg/dL [facility] Glucose [Mass/Vol] 99 mg/dL 70 - 100 mg/dL [facility] Glucose [Mass/Vol] 83 mg/dL 70 - 100 mg/dL [facility] Magnesium [Mass/Vol] 2.2 mg/dL 1.6 - 2 .3 mg/dL [facility] Laboratory - Microbiology an d Antimicrobial susceptibilityOrdered By: Sravanthi White on 02-24-2024 Bacteria identified Cx Nom (Bld) Escherichia coli Critically abnormal [facility] MAGNESIUMon 02-24-2024 Magnesium [Mass/Vol] 2.2 mg/dL Normal 1.6-2.3 [facility] Comment on above: Performed By: #### L AB103, LAB17 #### [employer]: STEVIE ELMORE ([id number]) [facility] ([facility]) [address] [place] [address] Magnesium [Mass/Vol]on 02-23 Interpretation and review of laboratory results Normal [facility] No Panel Informationon 02-23 Interpretation and review of laboratory results Abnormal [facility] Interpretation and review of laboratory results Abnormal [facility] Interpretation and review of laboratory results Normal [facility] Interpretation and review of laboratory results Normal [facility] Radiology Study observation (narrative) [facility] alth [...] Non-susceptible NO = No Interpretation ] Normal [facility] Comment on above: Performed By: #### L AB462 #### [employer]: SILVIA FRENCH ([id number]) [address] Bacteria identified Cx Nom (Bld) BLOOD CULTURE Reference No growth at 5 days ORDER COMMENTS: Blood Collection Site: Right Arm [ S = SUSCEPTIBLE R = RESISTANT I = INTERMEDIATE S-DD = Susceptible-dose dependent NS = Non-susceptible NO = No Interpretation ] [facility] Comment on above: Performed By: #### L AB462 ####[employer]: SILVIA FRENCH ([id number])[address] CARECOORDon 02-23-2024 [facility] Jorge reich Note/Update Clinical Update: admitted with acute metabolic encephalopathy due to UTI and an elevated troponin due to demand ischemia. Changed IV Rocephin to IV ertapenem yesterday - will continue for 2 weeks. ID and Geriatrics consulted. Plan to repeat blood cultures this AM. Mental status improved. Discharge Plan: [facility] Discharge Barriers: clinical stability Chart reviewed. Per Geriatrics consult, plan is to follow up Sunday. IM note from 02/21 anticipates discharge on 02/24. Messaged bedside RN to request update if discharge orders are placed. TCC will continue to follow. [facility] CBC (HEMOGRAM)on 02-23-2024 Erythrocyte distribution width (RBC) [Ratio] 15.6 % High 11.5-15.0 [facility] Comment on above: Performed By: #### L AB103, LAB17 #### [employer]: STEVIE ELMORE ([id number]) [facility] ([facility]) [address] Hematocrit (Bld) [Volume fraction] 28.1 % Low 35.0-47.0 [facility] Comment on above: Performed By: #### L AB103, LAB17 #### [employer]: STEVIE ELMORE ([id number]) [facility] ([facility]) [address] Hemoglobin (Bld) [Mass/Vol] 8.7 g/dL Low 11.7-16.0 [facility] Comment on above: Performed By: #### L AB103, LAB17 #### [employer]: STEVIE ELMORE ([id number]) [facility] ([facility]) [address] MCH (RBC) [Entitic mass] 28.2 pg Normal 26.0-34.0 [facility] Comment on above: Performed By: #### L AB103, LAB17 #### [employer]: STEVIE ELMORE ([id number]) [facility] ([facility]) [address] MCHC 31.0 % Normal 30.5-36.0 [facility] Comment on above: Performed By: #### L AB103, LAB17 #### [employer]: STEVIE ELMORE ([id number]) [facility] ([facility]) [address] MCV (RBC) [Entitic vol] 91.2 fL Normal 77.0-99.0 [facility] Comment on above: Performed By: #### L AB103, LAB17 #### [employer]: STEVIE ELMORE ([id number]) [facility] ([facility]) [address] Platelet mean volume (Bld) [Entitic vol] 9.0 fL Normal 9.0-12.7 [facility] Comment on above: Performed By: #### L AB103, LAB17 #### [employer]: STEVIE ELMORE ([id number]) [facility] ([facility]) [address] Platelets (Bld) [#/Vol] 182 10*3/uL Normal 140-440 [facility] Comment on above: Performed By: #### L AB103, LAB17 #### [employer]: STEVIE ELMORE ([id number]) [facility] ([facility]) [address] RBC (Bld) [#/Vol] 3.08 10*6/uL Low 3.80-5.20 [facility] Comment on above: Performed By: #### Misti AB103, LAB17 #### [employer]: STEVIE ELMORE ([id number]) [facility] ([facility]) [address] WBC (Bld) [#/Vol] 7.5 10*3/uL Normal 3.6-10.7 [facility] Comment on above: Performed By: #### L AB103, LAB17 #### [employer]: STEVIE ELMORE ([id number]) [facility] ([facility]) [address] CBC panel Auto (Bld)on 02-22 Erythrocyte distribution width (RBC) [Ratio] 15.6 % High 11.5 - 15.0 % [facility] Hematocrit (Bld) [Volume fraction] 28.1 % Low 35.0 - 47.0 % [facility] Hemoglobin (Bld) [Mass/Vol] 8.7 g/dL Low 11.7 - 16.0 g/dL [facility] Interpretation and review of laboratory results Abnormal [facility] MCH (RBC) [Entitic mass] 28.2 pg 26.0 - 34.0 pg [facility] MCHC (RBC) [Mass/Vol] 31.0 % 30.5 - 36.0 % [facility] MCV (RBC) [Entitic vol] 91.2 fL 77.0 - 99.0 fL [facility] Platelet mean volume (Bld) [Entitic vol] 9.0 fL 9.0 - 12.7 fL [facility] Platelets (Bld) [#/Vol] 182 10*3/uL 140 - 440 10*3/uL [facility] RBC (Bld) [#/Vol] 3.08 10*6/uL Low 3.80 - 5.2 0 10*6/uL [facility] WBC (Bld) [#/Vol] 7.5 10*3/uL 3.6 - 10.7 10*3/uL [facility] COMPREHENSIVE METABOLIC PANE Wade 02-23-2024 Albumin [Mass/Vol] 2.6 g/dL Low 3.5-5.0 [facility] Comment on above: Performed By: #### L AB17 ####[employer]: STEVIE ELMORE ([id number])[facility] ALP [Catalytic activity/Vol] 70 U/L Normal 38-126 [facility] Comment on above: Performed By: #### L AB17 ####[employer]: STEVIE ELMORE ([id number])[facility] ALT [Catalytic activity/Vol] 20 U/L Normal 0-34 [facility] Comment on above: Performed By: #### L AB17 ####[employer]: STEVIE ELMORE ([id number])[facility] ([facility])[address] Anion gap [Moles/Vol] 6 mmol/L Normal 3-13 [facility] Comment on above: Performed By: #### L AB17 ####[employer]: STEVIE ELMORE ([id number])[facility] ([facility])[address] AST [Catalytic activity/Vol] 23 U/L Normal 15-46 [facility] Comment on above: Performed By: #### L AB17 ####[employer]: STEVIE ELMORE ([id number])[facility] ([facility])[address] Bilirubin [Mass/Vol] 0.4 mg/dL Normal 0.2-1.3 [facility] Comment on above: Performed By: #### L AB17 ####[employer]: STEVIE ELMORE ([id number])[facility] ([facility])[address] Calcium [Mass/Vol] 8.1 mg/dL Low 8.4-10.4 [facility] Comment on above: Performed By: #### L AB17 ####[employer]: STEVIE ELMORE ([id number])[facility]ITAL[facility] ([facility])[address] Chloride [Moles/Vol] 101 mmol/L Normal 98-107 [facility] Comment on above: Performed By: #### L AB17 ####[employer]: STEVIE ELMORE ([phone])[facility]ITALA [facility] (SB[facility])[address] CO2 [Moles/Vol] 28 mmol/L Normal 22-30 [facility] Comment on above: Performed By: #### L AB17 ####[employer]: STEVIE ELMORE ([phone])[facility] (SBHLAB)[address] Creatinine [Mass/Vol] 1.62 mg/dL High 0.52-1.04 [facility] Comment on above: Performed By: #### L [id number] ####[employer]: STEVIE ELMORE ([id number])[facility] (SBHLAB)[address] GLOMERULAR FILTRATION RATE ML/MIN/1.73 SQ M.PREDICTED 34.9 mL/min/1.73m*2 Low >60.0 [facility] Comment on above: Result Comment: Calc ulation based on the Chronic Kidney Disease Epidemiology Collaboration (CKD-EPI) equation refit without adjustment for race Performed By: #### L [id number] ####[employer]: STEVIE ELMORE ([id number])[facility] (SBHLAB)[address] Glucose [Mass/Vol] 111 mg/dL High 70-100 [facility] Comment on above: Performed By: #### L [id number] ####[employer]: STEVIE ELMORE ([id number])[facility] (SBHLAB)[address] Potassium [Moles/Vol] 3.7 mmol/L Normal 3.5-5.1 [facility] Comment on above: Performed By: #### L AB17 ####[employer]: STEVIE ELMORE ([id number])[facility] (SBHLAB)[address] Protein [Mass/Vol] 5.1 g/dL Low 6.3-8.2 [facility] Comment on above: Performed By: #### L [id number] ####[employer]: STEVIE ELMORE ([id number])[facility] (SBHLAB)[address] Sodium [Moles/Vol] 135 mmol/L Normal 135-145 [facility] Comment on above: Performed By: #### L [id number] ####[employer]: STEVIE ELMORE ([id number])[facility] [place] (SBHLAB)[address] Urea nitrogen [Mass/Vol] 35 mg/dL High 7-17 [facility] Comment on above: Performed By: #### L AB17 ####[employer]: STEVIE ELMORE ([id number])[facility] (SBHLAB)[address] Comprehensive metabolic 1998 panelon 02-23-2024 Albumin [Mass/Vol] 2.6 g/dL Low 3.5 - 5.0 g/dL [facility] ALP [Catalytic activity/Vol] 70 U/L 38 - 126 U/L [facility] ALT [Catalytic activity/Vol] 20 U/L 0 - 34 U/L [facility] Anion gap [Moles/Vol] 6 mmol/L 3 - 13 mmol/L [facility] AST [Catalytic activity/Vol] 23 U/L 15 - 46 U/L [facility] Bilirubin [Mass/Vol] 0.4 mg/dL 0.2 - 1 .3 mg/dL [facility] Calcium [Mass/Vol] 8.1 mg/dL Low 8.4 - 10. 4 mg/dL [facility] Chloride [Moles/Vol] 101 mmol/L 98 - 10 7 mmol/L [facility] CO2 [Moles/Vol] 28 mmol/L 22 - 30 mmol/L [facility] Creatinine [Mass/Vol] 1.62 mg/dL High 0.52 - 1.04 mg/dL [facility] GFR/1.73 sq M.predicted MDRD (S/P/Bld) [Vol rate/Area] 34.9 mL/min/{1.73_m2} Low - PINF [facility] th Glucose [Mass/Vol] 111 mg/dL High 70 - 100 mg/dL [facility] Interpretation and review of laboratory results Abnormal [facility] Potassium [Moles/Vol] 3.7 mmol/L 3.5 - 5.1 mmol/L [facility] Protein [Mass/Vol] 5.1 g/dL Low 6.3 - 8.2 g/dL [facility] Sodium [Moles/Vol] 135 mmol/L 135 - 145 mmol/L [facility] Urea nitrogen [Mass/Vol] 35 mg/dL High 7 - 17 mg/dL [facility] Laboratory - Chemistry and C hemistry - challengeon 02-23-2024 Glucose [Mass/Vol] 239 mg/dL High 70 - 100 mg/dL [facility] Glucose [Mass/Vol] 205 mg/dL High 70 - 100 mg/dL [facility] Glucose [Mass/Vol] 78 mg/dL 70 - 100 mg/dL [facility] Glucose [Mass/Vol] mg/dL Low 70 - 100 mg/dL [facility] Glucose [Mass/Vol] 108 mg/dL High 70 - 100 mg/dL [facility] No Panel Informationon 02-22 Interpretation and review of laboratory results Abnormal [facility] Interpretation and review of laboratory results Abnormal [facility] Interpretation and review of laboratory results Normal [facility] Interpretation and review of laboratory results Abnormal [facility] Interpretation and review of laboratory results Abnormal [facility] Radiology Study observation (narrative) [facility] Rad[facility] Study observation (narrative) [facility] Study observation (narrative) [facility] Radiology Study observation (narrative) [facility] Rad[facility] Study observation (narrative) [facility] Progress Noteon 02-23-2024 Progress Note Speech-Language Pathology SPEECH LANGUAGE PATHOLOGY [facility] Bedside Swallow Evaluation Patient Name: Kimberly Patel Evaluation Date: 02/23/2024 Date of : 1955 Admission Date: 02/21/2024 10:26 AM Age: 68 y.o. Room[facility]Bed: [facility] IMPRESSION: No s/s oropharyngeal dysphagia. No overt clinical s/s pulmonary compromise with PO. RECOMMENDATION: Recommend Regular solids and Thin liquids and meds as tolerated and the following precautions: - Small bites/sips - Alternate solid and liquids No skilled acute COMMISSIONED FIRE OFFICER indicated at this time. Please reconsult should changes occur. Subjective Patient resting in bed - requires max encouragement to participate in clinical bedside swallow evaluation. Minimal verbal output during evaluation. Dysphagia History: No history of COMMISSIONED FIRE OFFICER services in EMR with retrospective chart review Baseline Diet: Per long term information - pt current intakes regular diet [...] History: Diagnosis Date CHF (congestive heart failure) ([facility]) COPD (chronic obstructive pulmonary disease) ([facility]) Diabetes mellitus ([facility]) Past Surgical History: Past Surgical History: Procedure Laterality Date CHOLECYSTECTOMY COLONOSCOPY throat biopsy Admission Diagnosis: Patient Active Problem List Diagnosis Date Noted Bipolar disorder, most recent episode depressed ([facility]) ([facility]) 02/22/2024 Sphenoid sinusitis, unspecified chronicity 02/21/2024 Bullous pemphigoid 11/17/2022 Acute on chronic diastolic congestive heart failure ([facility]) 08/22/2022 Physical debility 10/12/2021 Other hyperlipidemia 10/12/2021 CAD (coronary artery disease) 10/12/2021 Primary hypertension 10/12/2021 Neuropathy 10/12/2021 Bacteremia 10/12/2021 Acute kidney injury superimposed on CKD ([facility]) ([facility]) 10/12/2021 Type 2 diabetes mellitus with diabetic polyneuropathy, with long-term current use of insulin ([facility]) 10/12/2021 History of Present Illness: Kimberly Patel [...] to sleep Encounter Problems Encounter Problems (Active) COMMISSIONED FIRE OFFICER Misc Participate in Bedside swallow evaluation Start: 02/22/24 Expected End: 02/25/24 Therapy Time COMMISSIONED FIRE OFFICER Individual Minutes Time In: 0745 Time Out: 0801 Minutes: 16 Nuno Eastman MA, CCC-COMMISSIONED FIRE OFFICER [facility] Progress Note Placed patient on P5 [address] [facility] CARECOORDon [facility]-2024 [facility] dc form ( ambulance form) completed and placed on patients chart in the event she is ready for dc back to [facility] this . [facility] Care Managment Initi al Assessment Date: 02/22/2024 Patient Name: Kimberly Patel : 1955 Patient Information Source of Information: Patient, Patient Cathode Builder Name/Contact Information: Alexandro Cote, DTR [phone] Cognition/Language: WFL - Within Functional Limits Permission given to speak with patient lead generation representative/caregive r as indicated: Yes Confirmation of Payer with patient/family: Yes Payer Name: Medicare A/B and [facility] Medicaid : No Confirmation of Primary Care Physician: Confirmed PCP Name: Lucy Quick Seen in last 2 years?: Yes Primary Caregiver: Self If assistance needed, confirmed caregiver ready, willing and able to care for patient at discharge: Confirmed with: Living Arrangements Current Residence: Number of Floors Number of Entry Steps: Bed/Bath Levels: Facility: Longterm/[facility] Care Facility Name: [facility] Plan to Return: Lives with: Other (Comment) (Facility staff) Support Systems: Children Activities of Daily Living Ambulation: Total Care Bathing/Dressing: Total Care Elimination/Continence/ Toileting: Total Care Feeding: Total Care Who Assists with Activities of Daily Living: Nursing staff at [facility] Instrumental Activities of Daily Living Prescription Coverage: Yes Pharmacy Used: Longterm Medication Management: Transportation/Shopping : Independent (Longterm) Transportation Mode: Payer provided transport service Needs Assistance with Transportation at Discharge: Meal Preparation: Assistance Provider Meal Prep Assistance Provider Name: Longterm Laundry/Cleaning: Assistance Provider Laundry/Cleaning Assistance Provider Name: Longterm Finances/Bill Paying: Assistance Provider Finances/Bill Payer Assistance Provider Name: Longterm Communication: Assistance Types of Care Services/Equipment Utilized Care Services: Dialysis Type: NA Durable Medical Equipment: [employer]am[employer] Lift Patient's Goal/Discharge Plan Patient expects to be discharged to: Return to [facility] Discharge Planning Actions: Continue to follow Patient's Choice Rights and [employer] and Collaborative Relationships Disclosed as Indicated for Post-Acute Care: NA Interdisciplinary Team Engagement: Social Work Referral for: Additional Information: Chart reviewed. Patient [facility] for treatment of confusion and altered mental status. New UTI. CHF, DM. On IV Rocephin. Regular diet. 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 Geriatrics. Met with patient at bedside today. Explained role. Patient reports she is tired and directs me to speak with her daughter. Spoke with Alexandro Cote over the phone, explained role. She is very pleasant. Reports patient is at [facility] term and would like patient to return there on discharge once medically ready. She reports patient is a total care and bed bound at facility. Uses a mohamud lift. Will arrange transportation when ready. NEWSPAPER VENDOR tasked to begin referral; response pending. Tasked Weekend DP team to follow. SW updated. Sejal Thomas RN Normal [facility] CBC W Auto Differential pane l (Bld)Ordered By: Rita Beckham on 02-22-2024 Basophils (Bld) [#/Vol] 0.0 10*3/uL 0.0 - 0.2 10*3/uL [facility] Basophils/100 WBC (Bld) 0.2 % 0.0 - 2.0 % [facility] Connotate Eosinophils (Bld) [#/Vol] 0.1 10*3/uL 0.0 - 0.5 10*3/uL [facility] Eosinophils/100 WBC (Bld) 0.5 % 0.0 - 6.0 % [facility] Erythrocyte distribution width (RBC) [Ratio] 15.6 % High 11.5 - 15.0 % [facility] Hematocrit (Bld) [Volume fraction] 30.2 % Low 35.0 - 47.0 % [facility] Hemoglobin (Bld) [Mass/Vol] 9.6 g/dL Low 11.7 - 16.0 g/dL [facility] Immature granulocytes (Bld) [#/Vol] 0.3 10*3/uL High NINF - 0.1 10*3/uL [facility] Immature granulocytes/100 WBC (Bld) 3.3 % High 0.0 - 2.0 % [facility] Interpretation and review of laboratory results Abnormal [facility] Lymphocytes (Bld) [#/Vol] 0.9 10*3/uL Low 1.0 - 4.3 10*3/uL [facility] Lymphocytes/100 WBC (Bld) 9.5 % Low 15.0 - 45.0 % [facility] MCH (RBC) [Entitic mass] 28.6 pg 26.0 - 34.0 pg [facility] MCHC (RBC) [Mass/Vol] 31.8 % 30.5 - 36.0 % [facility] MCV (RBC) [Entitic vol] 89.9 fL 77.0 - 99.0 fL [facility] Monocytes (Bld) [#/Vol] 0.9 10*3/uL 0.0 - 0.9 10*3/uL [facility] Monocytes/100 WBC (Bld) 8.8 % 5.0 - 13.0 % [facility] Neutrophils (Bld) [#/Vol] 7.5 10*3/uL 1.8 - 7.5 10*3/uL [facility] Neutrophils/100 WBC (Bld) 77.7 % 38.0 - 82.0 % [facility] Nucleated RBC/100 WBC (Bld) [Ratio] 0.0 % [facility] Con[facility]ate Platelet mean volume (Bld) [Entitic vol] 8.8 fL Low 9.0 - 12.7 fL [facility] Platelets (Bld) [#/Vol] 195 10*3/uL 140 - 440 10*3/uL [facility] RBC (Bld) [#/Vol] 3.36 10*6/uL Low 3.80 - 5.2 0 10*6/uL [facility] WBC (Bld) [#/Vol] 9.6 10*3/uL 3.6 - 10.7 10*3/uL [facility] CBC WITH AUTO DIFFERENTIALon 02-22-2024 Basophils (Bld) [#/Vol] 0.0 10*3/uL Normal 0.0-0.2 [facility] Comment on above: Performed By: #### L [id number] ####[employer]: STEVIE ELMORE ([id number])[facility] (SBHLAB)[address] Basophils/100 WBC (Bld) 0.2 % Normal 0.0-2.0 [facility] Comment on above: Performed By: #### L [id number] ####[employer]: STEVIE ELMORE ([id number])[facility] (SBAB)[address] [place] [address] Eosinophils (Bld) [#/Vol] 0.1 10*3/uL Normal 0.0-0.5 [facility] Comment on above: Performed By: #### L [id number] ####[employer]: STEVIE ELMORE ([id number])[facility] [place] (SBAB)[address] Eosinophils/100 WBC (Bld) 0.5 % Normal 0.0-6.0 [facility] Comment on above: Performed By: #### L [id number] ####[employer]: STEVIE ELMORE ([id number])[facility] WEST CAMPUSAdenike (SBAB)[address] [place] [address] Erythrocyte distribution width (RBC) [Ratio] 15.6 % High 11.5-15.0 [facility] Comment on above: Performed By: #### L [id number] ####[employer]: STEVIE ELMORE ([id number])[facility] (SBAB)[address] [place] [address] Hematocrit (Bld) [Volume fraction] 30.2 % Low 35.0-47.0 [facility] Comment on above: Performed By: #### L [id number] ####[employer]: STEVIE ELMORE ([id number])[facility] (SBHLAB)[address] Hemoglobin (Bld) [Mass/Vol] 9.6 g/dL Low 11.7-16.0 [facility] Comment on above: Performed By: #### L [id number] ####[employer]: STEVIE ELMORE ([id number])[facility] (SBHLAB)[address] IMMATURE GRANS % 3.3 % High 0.0-2.0 [facility] Comment on above: Performed By: #### L [id number] ####[employer]: STEVIE ELMORE ([id number])[facility] (SBHLAB)[address] IMMATURE GRANS ABSOLUTE 0.3 10*3/uL High <0.1 [facility] Comment on above: Performed By: #### L [id number] ####[employer]: STEVIE ELMORE ([id number])[facility] (SBHLAB)[address] Lymphocytes (Bld) [#/Vol] 0.9 10*3/uL Low 1.0-4.3 [facility] Comment on above: Performed By: #### L [id number] ####[employer]: STEVIE ELMORE ([id number])[facility] HOSPITALGiancarlo [facility] (SBHLAB)[address] [place] [address] [place] Lymphocytes/100 WBC (Bld) 9.5 % Low 15.0-45.0 [facility] Comment on above: Performed By: #### L [id number] ####[employer]: STEVIE ELMORE ([id number])[facility] (SBHLAB)[address] MCH (RBC) [Entitic mass] 28.6 pg Normal 26.0-34.0 [facility] Comment on above: Performed By: #### L [id number] ####[employer]: STEVIE ELMORE ([id number])[facility] (SBHLAB)[address] [place] [address] MCHC 31.8 % Normal 30.5-36.0 [facility] Comment on above: Performed By: #### L [id number] ####[employer]: STEVIE ELMORE ([id number])[facility] [place] (SBHLAB)[address] MCV (RBC) [Entitic vol] 89.9 fL Normal 77.0-99.0 [facility] Comment on above: Performed By: #### L [id number] ####[employer]: STEVIE ELMORE ([id number])[facility] [place] (SBHLAB)[address] [place] [address] Monocytes (Bld) [#/Vol] 0.9 10*3/uL Normal 0.0-0.9 [facility] Comment on above: Performed By: #### L [id number] ####[employer]: STEVIE ELMORE ([id number])[facility] [place] (SBHLAB)[address] [place] [address] Monocytes/100 WBC (Bld) 8.8 % Normal 5.0-13.0 [facility] Comment on above: Performed By: #### L [id number] ####[employer]: STEVIE ELMORE ([id number])[facility] [place] (SBHLAB)[address] [place] [address] NEUTROPHILS ABSOLUTE 7.5 10*3/uL Normal 1.8-7.5 [facility] Comment on above: Performed By: #### L [id number] ####[employer]: STEVIE ELMORE ([id number])[facility] [place] (SBHLAB)[address] Neutrophils/100 WBC (Bld) 77.7 % Normal 38.0-82.0 [facility] Comment on above: Performed By: #### L [id number] ####[employer]: STEVIE ELMORE ([id number])[facility] [place] (SBHLAB)[address] NRBC 0.0 /100 WBCs Normal 0.0-2.0 [facility] Comment on above: Performed By: #### L [id number] ####[employer]: STEVIE MOYASuPERICO ([id number])[facility] [place] (SBHLAB)[address] Platelet mean volume (Bld) [Entitic vol] 8.8 fL Low 9.0-12.7 [facility] Comment on above: Performed By: #### L [id number] ####[employer]: STEVIE MOYAFAHAD ([id number])[facility] [place] (SBHLAB)[address] Platelets (Bld) [#/Vol] 195 10*3/uL Normal 140-440 [facility] Comment on above: Performed By: #### L [id number] ####[employer]: STEVIE PUTNAMPERICO ([id number])[facility] [place] (SBHLAB)[address] RBC (Bld) [#/Vol] 3.36 10*6/uL Low 3.80-5.20 [facility] Comment on above: Performed By: #### L [id number] ####[employer]: STEVIE PUTNAMPERICO ([id number])[facility] [place] (SBHLAB)[address] WBC (Bld) [#/Vol] 9.6 10*3/uL Normal 3.6-10.7 [facility] Comment on above: Performed By: #### L [id number] ####[employer]: STEVIE PUTNAMPERICO ([id number])[facility] [place] (SBHLAB)[address] COMPREHENSIVE METABOLIC PANE Wade 02-22-2024 Albumin [Mass/Vol] 2.7 g/dL Low 3.5-5.0 [facility] Comment on above: Performed By: #### L [id number], LAB17 #### [employer]: STEVIE ELMORE ([id number]) [facility]ITAL[facility]ian[facility]lo [place] (SBHLAB) [address] ALP [Catalytic activity/Vol] 75 U/L Normal 38-126 [facility] Comment on above: Performed By: #### L AB103, LAB17 #### [employer]: STEVIE ELMORE ([id number]) [facility] (SBHLAB) [address] ALT [Catalytic activity/Vol] 18 U/L Normal 0-34 [facility] Comment on above: Performed By: #### L AB103, LAB17 #### [employer]: STEVIE ELMORE ([id number]) [facility] (SBHLAB) [address] Anion gap [Moles/Vol] 5 mmol/L Normal 3-13 [facility] Comment on above: Performed By: #### L AB103, LAB17 #### [employer]: STEVIE ELMORE ([id number]) [facility] (SBHLAB) [address] AST [Catalytic activity/Vol] 21 U/L Normal 15-46 [facility] Comment on above: Performed By: #### L AB103, LAB17 #### [employer]: STEVIE ELMORE ([id number]) [facility] (SBHLAB) [address] [place] [address] [place] Bilirubin [Mass/Vol] 0.6 mg/dL Normal 0.2-1.3 [facility] Comment on above: Performed By: #### L AB103, LAB17 #### [employer]: STEVIE ELMORE ([id number]) [facility] (SBHLAB) [address] Calcium [Mass/Vol] 8.2 mg/dL Low 8.4-10.4 [facility] Comment on above: Performed By: #### L AB103, LAB17 #### [employer]: STEVIE ELMORE ([id number]) [facility] (SBHLAB) [address] [place] [address] [place] Chloride [Moles/Vol] 99 mmol/L Normal 98-107 [facility] Comment on above: Performed By: #### L AB103, LAB17 #### [employer]: STEVIE ELMORE ([id number]) [facility] (SBHLAB) [address] [place] [address] [place] CO2 [Moles/Vol] 29 mmol/L Normal 22-30 [facility] Comment on above: Performed By: #### L AB103, LAB17 #### [employer]: STEVIE ELMORE ([id number]) [facility] (SBHLAB) [address] Creatinine [Mass/Vol] 1.17 mg/dL High 0.52-1.04 [facility] Comment on above: Performed By: #### L AB103, LAB17 #### [employer]: STEVIE ELMORE ([id number]) [facility] (SBHLAB) [address] [place] [address] [place] GLOMERULAR FILTRATION RATE ML/MIN/1.73 SQ M.PREDICTED 51.6 mL/min/1.73m*2 Low >60.0 [facility] Comment on above: Result Comment: Calc ulation based on the Chronic Kidney Disease Epidemiology Collaboration (CKD-EPI) equation refit without adjustment for race Performed By: #### L AB103, LAB17 #### [employer]: STEVIE ELMORE ([id number]) [facility]ITAL[facility]OW[facility] (SBHLAB) [address] [place] [address] [place] Glucose [Mass/Vol] 142 mg/dL High 70-100 [facility] Comment on above: Performed By: #### L AB103, LAB17 #### [employer]: STEVIE ELMORE ([id number]) [facility] (SBHLAB) [address] [place] [address] [place] Potassium [Moles/Vol] 3.9 mmol/L Normal 3.5-5.1 [facility] Comment on above: Performed By: #### L AB103, LAB17 #### [employer]: STEVIE ELMORE ([id number]) [facility] (SBHLAB) [address] Protein [Mass/Vol] 5.3 g/dL Low 6.3-8.2 [facility] Comment on above: Performed By: #### L AB103, LAB17 #### [employer]: STEVIE ELMORE ([id number]) [facility] (SBHLAB) [address] Sodium [Moles/Vol] 132 mmol/L Low 135-145 [facility] Comment on above: Performed By: #### L AB103, LAB17 #### [employer]: STEVIE ELMORE ([id number]) [facility] (SBHLAB) [address] Urea nitrogen [Mass/Vol] 32 mg/dL High 7-17 [facility] Comment on above: Performed By: #### L AB103, LAB17 #### [employer]: STEVIE ELMORE ([id number]) [facility] (SBHLAB) [address] Cobalamin (Vitamin B12) [Mas s/Vol]on 02-22-2024 Interpretation and review of laboratory results Normal [facility] Comprehensive metabolic 1998 panelon 02-22-2024 Albumin [Mass/Vol] 2.7 g/dL Low 3.5 - 5.0 g/dL [facility] ALP [Catalytic activity/Vol] 75 U/L 38 - 126 U/L [facility] ALT [Catalytic activity/Vol] 18 U/L 0 - 34 U/L [facility] Anion gap [Moles/Vol] 5 mmol/L 3 - 13 mmol/L [facility] AST [Catalytic activity/Vol] 21 U/L 15 - 46 U/L [facility] Bilirubin [Mass/Vol] 0.6 mg/dL 0.2 - 1 .3 mg/dL [facility] Calcium [Mass/Vol] 8.2 mg/dL Low 8.4 - 10. 4 mg/dL [facility] Chloride [Moles/Vol] 99 mmol/L 98 - 10 7 mmol/L [facility] CO2 [Moles/Vol] 29 mmol/L 22 - 30 mmol/L [facility] Creatinine [Mass/Vol] 1.17 mg/dL High 0.52 - 1.04 mg/dL [facility] GFR/1.73 sq M.predicted MDRD (S/P/Bld) [Vol rate/Area] 51.6 mL/min/{1.73_m2} Low - PINF [facility] th Glucose [Mass/Vol] 142 mg/dL High 70 - 100 mg/dL [facility] Interpretation and review of laboratory results Abnormal [facility] Potassium [Moles/Vol] 3.9 mmol/L 3.5 - 5.1 mmol/L [facility] Protein [Mass/Vol] 5.3 g/dL Low 6.3 - 8.2 g/dL [facility] Sodium [Moles/Vol] 132 mmol/L Low 135 - 145 mmol/L [facility] Urea nitrogen [Mass/Vol] 32 mg/dL High 7 - 17 mg/dL [facility] Consulton 02-22-2024 Consult [facility] Wound Care CONSULT Note Kimberly Patel [...] moisture management. Low air loss mattress at [facility] .patient denies being able to make independent body position changes. Does not have good appetite. No cough. Can not lay flat HOB has to be up more than 30 degrees. PAST MEDICAL HISTORY Active Ambulatory Problems Diagnosis Date Noted Physical debility 10/12/2021 Other hyperlipidemia 10/12/2021 CAD (coronary artery disease) 10/12/2021 Primary hypertension 10/12/2021 Neuropathy 10/12/2021 Bacteremia 10/12/2021 Acute kidney injury superimposed on CKD ([facility]) ([facility]) 10/12/2021 Type 2 diabetes mellitus with diabetic polyneuropathy, with long-term current use of insulin ([facility]) 10/12/2021 Bullous pemphigoid 11/17/2022 Acute on chronic diastolic congestive heart failure ([facility]) 08/22/2022 Bipolar disorder, most recent episode depressed ([facility]) ([facility]) 02/22/2024 Resolved Ambulatory Problems Diagnosis Date Noted No Resolved Ambulatory Problems Past Medical History: Diagnosis Date CHF (congestive heart failure) ([facility]) COPD (chronic obstructive pulmonary disease) ([facility]) Diabetes mellitus ([facility]) PAST SURGICAL HISTORY Past Surgical History: Procedure [...] (fourteen) days. ergocalciferol (Vitamin D-2) 1.25 MG (21002 UT) capsule Take 1.25 mg by mouth [...] every 6 (more content not included)... Normal [facility] Consult [facility] - Infectious Diseases Attending [...] History: Diagnosis Date CHF (congestive heart failure) ([facility]) COPD (chronic obstructive pulmonary disease) ([facility]) Diabetes mellitus ([facility]) Past Surgical History: Past Surgical History: Procedure [...] true Ra (more content not included)... Normal [facility] Consult [facility] Inpatient Consult Service Admission [...] change in mental status. She resides at [facility] and hospitalized for long-term care,She has been there for over a year. Family presented and was going to discharge back to facility however became acutely more confused emergency room and decision was made for admission. Patient is unable to provide any additional history of her recent symptoms. Discussed with bedside chief nursing officer, they were able to change her this [...] 0 Conversation with caregiver: daughter. Alexandro Cote [phone] -states that patient experiences similar symptoms with UTI/blood stream infections -has had hallucinations with infections, but doesn't usually seem to distressing/disturbing -from mental health, at her baseline she is good - states she plays on her phone, doesn't do a lot of socializing, doesn't go down for activities, doesn't like the mohamud lift. Does return to baseline in between -at [facility] in [place] - little over a year, doing ok there -no recent medication changes -does have bullous pemphigoid, goes to [employer] and has been much better controlled [...] Shmuel Cormier (more content not included)... Normal [facility] ECG 12-LEADon 02-22-2024 ECG 12-LEAD IMPRESSION: Sinus tachycardia with irregular rate Inferior infarct, old Anterior infarct, old Compared to ECG 04/30/22 Irregular rate now noted, likely PAC Electronically Signed On 02-22-2024 00:36:22 EDT by Keven Cano Normal [facility] HEMOGLOBIN A1Con 02-22-2024 Glucose [Mass/Vol] 154 mg/dL Normal [facility] Comment on above: Order Comment: If no t done within the last 3 mos Performed By: #### L [id number], LAB17 #### [employer]: STEVIE ELMORE ([id number]) [facility] [address] HbA1c (Bld) [Mass fraction] 7.0 % High <5.7 [facility] Comment on above: Order Comment: If no t done within the last 3 mos Result Comment: Norm al less than 5.7% Prediabetes 5.7% to 6.4% Diabetes 6.5% or higher --HgbA1C levels may not be accurate in patients who have renal disease, received recent blood transfusions, are anemic, or who have dyshemoglobinemia. Performed By: #### L AB103, LAB17 #### [employer]: STEVIE ELMORE ([id number]) [facility] ([facility]) [address] IDNon 02-22-2024 IDN The patient is Moderately Unstable - Medium risk of patient condition declining or worsening The patient's goals for the shift include rest The clinical goals for the shift include rest Over the shift, the patient did not make progress toward the following goals. Barriers to progression include infection. Recommendations to address these barriers include antibiotics. Normal [facility] Laboratory - Chemistry and C hemistry - challengeon 02-22-2024 Glucose [Mass/Vol] 156 mg/dL High 70 - 100 mg/dL [facility] Glucose [Mass/Vol] 168 mg/dL High 70 - 100 mg/dL [facility] Glucose [Mass/Vol] 116 mg/dL High 70 - 100 mg/dL [facility] Glucose [Mass/Vol] 150 mg/dL High 70 - 100 mg/dL [facility] Glucose [Mass/Vol] 148 mg/dL High 70 - 100 mg/dL [facility] Procalcitonin [Mass/Vol] 0.41 ng/mL High 0.00 - 0.09 ng/mL [facility] Cobalamin (Vitamin B12) [Mass/Vol] 294 pg/mL 239 - 931 pg/mL [facility] Average glucose Estimated from glycated hemoglobin (Bld) [Mass/Vol] 154 mg/dL [facility] TSH Qn 1.267 m[IU]/L [facility] - Hematology and Cell countson 02-22-2024 HbA1c (Bld) [Mass fraction] 7.0 % High NINF - 5.7 % [facility] No Panel Informationon 02-21 Interpretation and review of laboratory results Abnormal [facility] Interpretation and review of laboratory results Abnormal [facility] Interpretation and review of laboratory results Abnormal [facility] Interpretation and review of laboratory results Abnormal [facility] Interpretation and review of laboratory results Abnormal [facility] Interpretation and review of laboratory results Abnormal [facility] CV EPIPHANY [facility] Radiology Study observation (narrative) [facility]ative) [facility] Study observation (narrative) [facility] Rad[facility] Study observation (narrative) [facility] Rad[facility] Study observation (narrative) [facility] No Panel InformationOrdered By: Disha Smith on 02-22-2024 CTX-M (ESBL gene) Detected Abnormal Not Detected [facility] Escherichia coli Detected Abnormal Not Detected [facility] Interpretation and review of laboratory results Abnormal [facility] No Panel InformationOrdered By: Keven Cano on 02-22-2024 P Ke[place] 7 degrees [facility] Work Phone: RI Interval 159 ms [facility] Work Phone: QRS Ke[place] -44 degrees [facility] Work Phone: [phone] QRSD Interval 77 ms [employer] Work Phone: QT Interval 338 ms [employer] Work Phone: QTC Interval 448 ms [facility] [employer] Work Phone: T Wave [place] 79 degrees [facility] [employer] Work Phone: [employer] Work Phone: PROCALCITONIN TESTon 024 PROCALCITONIN 0.41 ng/mL High 0.00-0.09 [facility] [employer] [facility] Comment on above: Result Comment: ORDE R COMMENTS: PCT <0.50 = Low risk of severe sepsis and/or septic shock. PCT >2.00 = High risk of severe sepsis and/or septic shock. Performed By: #### L AB103, LAB17 #### [employer]: STEVIE ELMORE ([id number]) [facility] [address] Procalcitonin [Mass/Vol]on 0 02-22-2024 Interpretation and review of laboratory results Abnormal [facility] Progress Noteon 02-22-2024 Progress Note Nutrition Assessment [...] Unable to assess Fluid Accumulation: Mild Extremities Wool Presser Strength: Not Performed Nutrition Assessment: 68 year old woman with PMHx: CAD, HLD, HTN, neuropathy, DMII(A1C=7.0% on 02/22/24). She presents to [facility] from SNF with AMS and reported [...] to support patient. Refused to work with COMMISSIONED FIRE OFFICER, at time of attempted assessment, noted maybe one bite taken from breakfast tray, otherwise tray untouched. Patient declined to participate in RDN assessment, stated she wanted ?to be left alone and sleep?. Bed scale weight obtained: 106.7 kg or 235.2#. Estimated Daily Nutrient Needs: Energy Requirements Based On: Kcal/kg Weight Used for Energy Requirements: [place] Weight for Energy Calculation (kg): 57 kg Total Energy Requirements (kcals/day): 1425- 1710 (25-30 kcal/kg IBW) Weight Used for Protein Requirements: Weight in Kg Used for Protein Requirements: Estimated Total Protein (g/day): 57-68 (1.0-1.2 g protein/kg IBW) Estimated Daily Total Fluid (ml/day): per MD Nutrition Related Findings: Edward score=13. +1 BLE edema noted. Meds: aspirin, lipitor, PPI, rocephin, insulin, toprol. Labs reviewed. Refused COMMISSIONED FIRE OFFICER this morning. Wound Type: Pressure Injury, Wound [...] lb) (07/09/2023) % Weight Change (Calculated): -6.3 [place] Body Weight (lbs) (Calculated): 125 lbs [place] Body Weight (Kg) (Calculated): 57 kg % [place] Body Weight (Calculated): 188.2 % BMI (kg/m2) [...] determine Odalys Travis Godinez, RDN, LDN, Contact: *[phone] [facility] Progress Note OCCUPATIONAL THERAPY [facility] ED's Name/MRN: Kimberly Patel ([id number]) Date: 02/22/2024 Chart reviewed. Spoke with TCC, she reports pt from SNF, is bed bound at baseline, [place], and is total care. Will discharge from caseload, pt dependent Zee Gresham OT [facility] Progress Note [phone]: Please pa jasen sd ([phone]) for patient care issues. [phone]: Please page [facility] Hospitalist for any issues. Subjective: Admit Date: [...] the following -clinical improvement, clearance of bacteremia, senior science consultant recommendations, workup Total time spent (which include face to face and non face to face encounters) : 52 minutes Toxic drug monitoring/narrow therapeutic index drug monitoring : # Drug name : # Route administered : # Method of monitoring : Extended Emergency Contact Information Primary Emergency Contact: Alexandro Cote Mobile Relation: Daughter Preferred language: Iraqi Welfare Aide needed? No Advance Directive: Full Code Discharge planning: PANCHITO DEL CID MD Division of Hospitalist Medicine Inpatient Medical Services/[facility] Progress Note PHYSICAL THERAPY [facility] Name/MRN: Kimberly Patel ([id number]) Date: 02/22/2024 Chart reviewed. Spoke with [facility], she reports pt from SNF, is bed bound at baseline, [place], and is total care. Will discharge from caseload, pt dependent Moe Mcelroy PT [facility] Progress Note OCCUPATIONAL THERAPY [facility] ED's Name/MRN: Kimberly Patel ([id number]) Date: 02/22/2024 Chart reviewed. Introduced self and role, pt declines therapy adamantly. Will re-attempt as schedule permits Zee Gresham OT [facility] Progress Note PHYSICAL THERAPY [facility] Name/MRN: Kimberly Patel ([id number]) Date: 02/22/2024 Chart reviewed. Introduced self and role, pt declines therapy adamantly. Will re-attempt as schedule permits Moe Mcelroy, PT Normal [facility] Progress Note Speech-Language Pathology Pt's chart reviewed. Admitted with AMS and fever. Pt on CON, CHO, NSP Regular thin diet per MAR from nursing facility. Order acknowledged for Bedside swallowing evaluation. Pt deferred at this time. I will eat when I'm ready. I'm tired and going to sleep. ST will continue to follow as appropriate. Normal [facility] THYROID STIMULATING HORMONEo n 02-22-2024 THYROID STIMULATING HORMONE 1.267 uIU/mL Normal 0.465-4.680 [facility] Comment on above: Performed By: #### L AB103, LAB17 #### [employer]: STEVIE ELMORE ([id number]) [facility] [address] [place] [address] TSH Qnon 02-22-2024 Interpretation and review of laboratory results Normal [facility] US Kidneyon 02-22-2024 [facility] KidneyOrdered By: Edwin johnson on 02-22-2024 [facility] Work Phone: US RENAL COMPLETEon 02-22-20 [...] Signed Date/Time: 02/22/2024 6:06 PM EDT Normal [facility] VITAMIN B12on 02-22-2024 Cobalamin (Vitamin B12) [Mass/Vol] 294 pg/mL Normal 239-931 [facility] Comment on above: Performed By: #### L AB103, LAB17 #### [employer]: STEVIE ELMORE ([id number]) [facility] ([facility]) [address] [place] [address] Vital signsOrdered By: Lory Cano on 02-22-2024 Heart rate 106 /min bpm [facility] [employer] Work Phone: BLOOD CULTUREon 02-21-2024 Bacteria identified [...] Non-susceptible NO = No Interpretation ] Normal [facility] Comment on above: Performed By: #### L [id number], [id number] ####[employer]: SILVIA FRENCH ([id number])[facility] ([facility])[address] [place] [address] BLOOD CULTURE IDENTIFICATION - ANAEROBICon 02-21-2024 BLOOD CULTURE IDENTIFICATION - ANAEROBIC ESCHERICHIA COLI, BLOOD (A) Reference Detected Not Detected CTX-M ESBL, BLOOD (A) Reference Detected Not Detected ORDER COMMENTS: (A) Methodology: Multiplex PCR The [employer] BCID panel can detect the following organisms: [...] KPC, NDM, OXA-48-like, VIM, and mcr-1. Normal [facility] Comment on above: Performed By: #### L [id number], [id number] ####[employer]: SILVIA FRENCH ([id number])[facility] ([facility])[address] [place] [address] CBC W Auto Differential pane l (Bld)on 02-21-2024 Basophils (Bld) [#/Vol] 0.0 10*3/uL 0.0 - 0.2 10*3/uL [facility] Basophils/100 WBC (Bld) 0.2 % 0.0 - 2.0 % [facility] Eosinophils (Bld) [#/Vol] 0.1 10*3/uL 0.0 - 0.5 10*3/uL [facility] Eosinophils/100 WBC (Bld) 0.4 % 0.0 - 6.0 % [facility] Erythrocyte distribution width (RBC) [Ratio] 15.8 % High 11.5 - 15.0 % [facility] Hematocrit (Bld) [Volume fraction] 31.3 % Low 35.0 - 47.0 % [facility] Hemoglobin (Bld) [Mass/Vol] 10.0 g/dL Low 11.7 - 16.0 g/dL [facility] Immature granulocytes (Bld) [#/Vol] 0.4 10*3/uL High NINF - 0.1 10*3/uL [facility] Immature granulocytes/100 WBC (Bld) 2.4 % High 0.0 - 2.0 % [facility] Interpretation and review of laboratory results Abnormal [facility] Lymphocytes (Bld) [#/Vol] 1.0 10*3/uL 1.0 - 4.3 10*3/uL [facility] Lymphocytes/100 WBC (Bld) 6.3 % Low 15.0 - 45.0 % [facility] MCH (RBC) [Entitic mass] 28.5 pg 26.0 - 34.0 pg [facility] MCHC (RBC) [Mass/Vol] 31.9 % 30.5 - 36.0 % [facility] MCV (RBC) [Entitic vol] 89.2 fL 77.0 - 99.0 fL [facility] Monocytes (Bld) [#/Vol] 1.3 10*3/uL High 0.0 - 0.9 10*3/uL [facility] Monocytes/100 WBC (Bld) 8.3 % 5.0 - 13.0 % [facility] Neutrophils (Bld) [#/Vol] 12.5 10*3/uL High 1.8 - 7.5 10*3/uL [facility] Neutrophils/100 WBC (Bld) 82.4 % High 38.0 - 82.0 % [facility] Nucleated RBC/100 WBC (Bld) [Ratio] 0.0 % [facility] [employer] Platelet mean volume (Bld) [Entitic vol] 8.5 fL Low 9.0 - 12.7 fL [facility] Platelets (Bld) [#/Vol] 201 10*3/uL 140 - 440 10*3/uL [facility] RBC (Bld) [#/Vol] 3.51 10*6/uL Low 3.80 - 5.2 0 10*6/uL [facility] WBC (Bld) [#/Vol] 15.2 10*3/uL High 3.6 - 10.7 10*3/uL [facility] CBC WITH AUTO DIFFERENTIALon 02-21-2024 Basophils (Bld) [#/Vol] 0.0 10*3/uL Normal 0.0-0.2 [facility] Comment on above: Performed By: #### L [id number] ####[employer]: STEVIE ELMORE ([id number])[facility] [place] [facility] Basophils/100 WBC (Bld) 0.2 % Normal 0.0-2.0 [facility] Comment on above: Performed By: #### L [id number] ####[employer]: STEVIE ELMORE ([id number])[facility] ([facility])[address] [place] [address] Eosinophils (Bld) [#/Vol] 0.1 10*3/uL Normal 0.0-0.5 [facility] Comment on above: Performed By: #### L [id number] ####[employer]: STEVIE ELMORE ([id number])[facility] [place] [address] Eosinophils/100 WBC (Bld) 0.4 % Normal 0.0-6.0 [facility] Comment on above: Performed By: #### L [id number] ####[employer]: STEVIE ELMORE ([id number])[facility] [place] [facility] [place] [address] Erythrocyte distribution width (RBC) [Ratio] 15.8 % High 11.5-15.0 [facility] Comment on above: Performed By: #### L [id number] ####[employer]: STEVIE ELMORE ([id number])[facility] [place] [address] Hematocrit (Bld) [Volume fraction] 31.3 % Low 35.0-47.0 [facility] Comment on above: Performed By: #### L [id number] ####[employer]: STEVIE ELMORE ([id number])[facility] ([facility])[address] Hemoglobin (Bld) [Mass/Vol] 10.0 g/dL Low 11.7-16.0 [facility] Comment on above: Performed By: #### L [id number] ####[employer]: STEVIE ELMORE ([id number])[facility] ([facility] IMMATURE GRANS % 2.4 % High 0.0-2.0 [facility] Comment on above: Performed By: #### L [id number] ####[employer]: STEVIE PUTNAMPERICO ([id number])[facility] IMMATURE GRANS ABSOLUTE 0.4 10*3/uL High <0.1 [facility] Comment on above: Performed By: #### L [id number] ####[employer]: STEVIE ELMORE ([id number])[facility] Lymphocytes (Bld) [#/Vol] 1.0 10*3/uL Normal 1.0-4.3 [facility] Comment on above: Performed By: #### L [id number] ####[employer]: STEVIE ELMORE ([id number])[facility] Lymphocytes/100 WBC (Bld) 6.3 % Low 15.0-45.0 [facility] Comment on above: Performed By: #### L [id number] ####[employer]: TSEVIE ELMORE ([id number])[facility] MCH (RBC) [Entitic mass] 28.5 pg Normal 26.0-34.0 [facility] Comment on above: Performed By: #### L [id number] ####[employer]: STEVIE MOYASuPERICO ([id number])[facility] [place] [facility] MCHC 31.9 % Normal 30.5-36.0 [facility] Comment on above: Performed By: #### L [id number] ####[employer]: STEVIE CATARINA ([id number])[facility] [place] ([facility])[address] MCV (RBC) [Entitic vol] 89.2 fL Normal 77.0-99.0 [facility] Comment on above: Performed By: #### L [id number] ####[employer]: STEVIE CATARINA ([id number])[facility] [place] ([facility])[address] [place] [address] Monocytes (Bld) [#/Vol] 1.3 10*3/uL High 0.0-0.9 [facility] Comment on above: Performed By: #### L [id number] ####[employer]: STEVIE CATARINA ([id number])[facility] [place] ([facility])[address] Monocytes/100 WBC (Bld) 8.3 % Normal 5.0-13.0 [facility] Comment on above: Performed By: #### L [id number] ####[employer]: STEVIE PUTNAMPERICO ([id number])[facility] [place] [facility])[address] [place] [address] [place] NEUTROPHILS ABSOLUTE 12.5 10*3/uL High 1.8-7.[address] [facility] Comment on above: Performed By: #### L [id number] ####[employer]: STEVIE PUTNAMPERICO ([id number])[facility] [place] ([facility])[address] Neutrophils/100 WBC (Bld) 82.4 % High 38.0-82.0 [facility] Comment on above: Performed By: #### L [id number] ####[employer]: STEVIE MOYASuPERICO ([id number])[facility] [place] [facility])[address] NRBC 0.0 /100 WBCs Normal 0.0-2.0 [facility] Comment on above: Performed By: #### L [id number] ####[employer]: STEVIE PUTNAMPERICO ([id number])[facility] [place] [facility] Platelet mean volume (Bld) [Entitic vol] 8.5 fL Low 9.0-12.7 [facility] Comment on above: Performed By: #### L [id number] ####[employer]: STEVIE MOYAFAHAD ([id number])[facility] [place] [facility] Platelets (Bld) [#/Vol] 201 10*3/uL Normal 140-440 [facility] Comment on above: Performed By: #### L [id number] ####[employer]: STEVIE MOYAFAHAD ([id number])[facility] [place] [facility] RBC (Bld) [#/Vol] 3.51 10*6/uL Low 3.80-5.20 [facility] Comment on above: Performed By: #### L [id number] ####[employer]: STEVIE ELMORE ([id number])[facility] [place] [facility] WBC (Bld) [#/Vol] 15.2 10*3/uL High 3.6-10.7 [facility] Comment on above: Performed By: #### L [id number] ####[employer]: STEVIE ELMORE ([id number])[facility] [place] [facility])[address] COMPLETE URINALYSISon 2023 BACTERIA (#/HPF) IN URINE Moderate Abnormal Negative [facility] Comment on above: Performed By: #### L [id number] ####[employer]: STEVIE PUTNAMPERICO ([id number])[facility] ([facility])[address] BILIRUBIN, TOTAL PRESENCE IN URINE Negative Normal Negative [facility] Comment on above: Performed By: #### L [id number] ####[employer]: STEVIE ELMORE ([id number])[facility] ([facility])[address] Clarity (U) Turbid Abnormal Clear [facility] Comment on above: Performed By: #### L [id number] ####[employer]: STEVIE PUTNAMPERICO ([id number])[facility] Color (U) Yellow Normal Lt. Yellow [facility] Comment on above: Performed By: #### L [id number] ####[employer]: STEVIE ELMORE ([id number])[facility] GLUCOSE (MG/DL) IN URINE Normal Normal Normal (<70) [facility] Comment on above: Performed By: #### L [id number] ####[employer]: STEVIE PUTNAMPERICO ([id number])[facility] HEMOGLOBIN PRESENCE IN URINE 0.2 mg/dL Abnormal Negative [facility] Comment on above: Performed By: #### L [id number] ####[employer]: STEVIE PUTNAMPERICO ([id number])[facility] ([facility])[address] Ketones Ql (U) Negative Normal Negative [facility] Comment on above: Performed By: #### L [id number] ####[employer]: STEVIE ELMORE ([id number])[facility] ([facility])[address] LEUKOCYTE ESTERASE PRESENCE IN URINE BY TEST STRIP 500 Ha/uL Abnormal Negative [facility] Comment on above: Performed By: #### L [id number] ####[employer]: STEVIE ELMORE ([id number])[facility] ([facility])[address] [place] [address] MUCUS (#/LPF) IN URINE SEDIMENT Few Normal Negative [facility] [facility] Comment on above: Performed By: #### L [id number] ####[employer]: STEVIE ELMORE ([id number])[facility] NITRITE PRESENCE IN URINE Positive Abnormal Negative [facility] Comment on above: Performed By: #### L [id number] ####[employer]: STEVIE ELMORE ([id number])[facility] ([facility])[address] [place] [address] pH (U) 6.0 [pH] Normal 5.0-8.0 [facility] Comment on above: Performed By: #### L AB347 ####[employer]: STEVIE ELMORE ([id number])[facility] [place] [address] Protein (U) [Mass/Vol] 30 mg/dL Abnormal Negative [facility] Comment on above: Performed By: #### L AB347 ####[employer]: STEVIE ELMORE ([id number])[facility] [place] [address] [place] RBC (#/HPF) IN URINE SEDIMENT 6-10 Abnormal 0-2 [facility] Comment on above: Performed By: #### L AB347 ####[employer]: STEVIE ELMORE ([id number])[facility] [place] [address] Specific gravity (U) [Rel density] 1.046 High 1.005-1.030 [facility] Comment on above: Performed By: #### L AB347 ####[employer]: STEVIE ELMORE ([id number])[facility] [place] ([facility])[address] SQUAMOUS EPITHELIAL CELLS (#/HPF) IN URINE SEDIMENT 6-10 Abnormal 3-5 [facility] Comment on above: Performed By: #### L AB347 ####[employer]: STEVIE ELMORE ([id number])[facility] [place] ([facility])[address] UROBILINOGEN (MG/DL) IN URINE Normal Normal Normal (0-1) [facility] Comment on above: Performed By: #### L AB347 ####[employer]: STEVIE ELMORE ([id number])[facility] [place] ([facility])[address] [place] [address] WBC (LEUKOCYTE) (#/HPF) IN URINE SEDIMENT >100 Abnormal 0-5 [facility] Comment on above: Performed By: #### L AB347 ####[employer]: STEVIE ELMORE ([id number])[facility] ([facility])[address] [place] [address] COMPREHENSIVE METABOLIC PANE Wade 02-21-2024 Albumin [Mass/Vol] 2.9 g/dL Low 3.5-5.0 [facility] Comment on above: Performed By: #### L AB103, LAB17 #### [employer]: STEVIE ELMORE ([id number]) [facility] ([facility] [address] ALP [Catalytic activity/Vol] 78 U/L Normal 38-126 [facility] Comment on above: Performed By: #### L AB103, LAB17 #### [employer]: STEVIE ELMORE ([id number]) [facility] ([facility] [address] ALT [Catalytic activity/Vol] 19 U/L Normal 0-34 [facility] Comment on above: Performed By: #### L AB103, LAB17 #### [employer]: STEVIE ELMORE ([id number]) [facility] [place] ([facility]) [address] [place] [address] [place] Anion gap [Moles/Vol] 4 mmol/L Normal 3-13 [facility] Comment on above: Performed By: #### L AB103, LAB17 #### [employer]: STEVIE ELMORE ([id number]) [facility] ([facility] [address] [place] [address] [place] AST [Catalytic activity/Vol] 21 U/L Normal 15-46 [facility] Comment on above: Performed By: #### L AB103, LAB17 #### [employer]: STEVIE ELMORE ([id number]) [facility] ([facility] [address] Bilirubin [Mass/Vol] 0.6 mg/dL Normal 0.2-1.3 [facility] Comment on above: Performed By: #### L AB103, LAB17 #### [employer]: STEVIE ELMORE ([id number]) [facility] ([facility] [address] [place] [address] [place] Calcium [Mass/Vol] 8.7 mg/dL Normal 8.4-10.4 [facility] Comment on above: Performed By: #### L AB103, LAB17 #### [employer]: STEVIE ELMORE ([id number]) [facility] ([facility] [address] [place] [address] [place] Chloride [Moles/Vol] 98 mmol/L Normal 98-107 [facility] Comment on above: Performed By: #### L AB103, LAB17 #### [employer]: STEVIE ELMORE ([id number]) [facility] [place] ([facility]) [address] [place] [address] [place] CO2 [Moles/Vol] 32 mmol/L High 22-30 [facility] Comment on above: Performed By: #### L AB103, LAB17 #### [employer]: STEVIE ELMORE ([id number]) [facility] [place] ([facility]) [address] Creatinine [Mass/Vol] 1.29 mg/dL High 0.52-1.04 [facility] Comment on above: Performed By: #### L AB103, LAB17 #### [employer]: STEVIE ELMORE ([id number]) [facility] ([facility]) [address] [place] [address] [place] GLOMERULAR FILTRATION RATE ML/MIN/1.73 SQ M.PREDICTED 45.9 mL/min/1.73m*2 Low >60.0 [facility] Comment on above: Result Comment: Calc ulation based on the Chronic Kidney Disease Epidemiology Collaboration (CKD-EPI) equation refit without adjustment for race Performed By: #### L AB103, LAB17 #### [employer]: STEVIE ELMORE ([id number]) [facility] ([facility]) [address] Glucose [Mass/Vol] 148 mg/dL High 70-100 [facility] Comment on above: Performed By: #### L AB103, LAB17 #### [employer]: STEVIE ELMORE ([id number]) [facility] ([facility]) [address] Potassium [Moles/Vol] 4.3 mmol/L Normal 3.5-5.1 [facility] Comment on above: Performed By: #### L AB103, LAB17 #### [employer]: STEVIE ELMORE ([id number]) [facility] ([facility]) [address] [place] [address] [place] Protein [Mass/Vol] 5.7 g/dL Low 6.3-8.2 [facility] Comment on above: Performed By: #### L AB103, LAB17 #### [employer]: STEVIE ELMORE ([id number]) [facility] ([facility]) [address] [place] [address] [place] Sodium [Moles/Vol] 134 mmol/L Low 135-145 [facility] Comment on above: Performed By: #### L AB103, LAB17 #### [employer]: STEVIE ELMORE ([id number]) [facility] ([facility]) [address] Urea nitrogen [Mass/Vol] 44 mg/dL High 7-17 [facility] Comment on above: Performed By: #### L AB103, LAB17 #### [employer]: STEVIE ELMORE ([id number]) [facility] ([facility]) [address] COVID-19, Flu A/B, and RSV C omboon 02-21-2024 Interpretation and review of laboratory results Normal [facility] CT CHEST ANGIOGRAM W AND/OR WO IV [...] 1:56 PM EDT Fever, elevated d-dimer Normal [facility] CT HEAD WO IV CONTRASTon CT HEAD WO IV CONTRAST Patient Name: [facility]IMBERLY MATA : 1955 [id number] Exam Date/Time: 02/21/2024 11:44 Procedure: CT HEAD [...] Pt 98.1 when vitals taken here. Normal [facility] CT Head WO contraston 2023 [facility] Radiology Study observation (narrative) [facility] Head WO contrastOrdered B y: Frankie Patel on 02-21-2024 [facility] Work Phone: CTA Chest vessels WO and W c ontrast Will 02-21-2024 [facility] Rad[facility] Study observation (narrative) [facility] Comprehensive metabolic 1998 panelon 02-21-2024 Albumin [Mass/Vol] 2.9 g/dL Low 3.5 - 5.0 g/dL [facility] ALP [Catalytic activity/Vol] 78 U/L 38 - 126 U/L [facility] ALT [Catalytic activity/Vol] 19 U/L 0 - 34 U/L [facility] Anion gap [Moles/Vol] 4 mmol/L 3 - 13 mmol/L [facility] AST [Catalytic activity/Vol] 21 U/L 15 - 46 U/L [facility] Bilirubin [Mass/Vol] 0.6 mg/dL 0.2 - 1 .3 mg/dL [facility] Calcium [Mass/Vol] 8.7 mg/dL 8.4 - 10. 4 mg/dL [facility] Chloride [Moles/Vol] 98 mmol/L 98 - 10 7 mmol/L [facility] CO2 [Moles/Vol] 32 mmol/L High 22 - 30 mmol/L [facility] Creatinine [Mass/Vol] 1.29 mg/dL High 0.52 - 1.04 mg/dL [facility] GFR/1.73 sq M.predicted MDRD (S/P/Bld) [Vol rate/Area] 45.9 mL/min/{1.73_m2} Low - PINF [facility] th Glucose [Mass/Vol] 148 mg/dL High 70 - 100 mg/dL [facility] Interpretation and review of laboratory results Abnormal [facility] Potassium [Moles/Vol] 4.3 mmol/L 3.5 - 5.1 mmol/L [facility] Protein [Mass/Vol] 5.7 g/dL Low 6.3 - 8.2 g/dL [facility] Sodium [Moles/Vol] 134 mmol/L Low 135 - 145 mmol/L [facility] Urea nitrogen [Mass/Vol] 44 mg/dL High 7 - 17 mg/dL [facility] D-DIMER,QUANTITATIVEon 02-20 D-DIMER, INNOVANCE 0.91 mg/L High <0.50 [facility] Comment on above: Result Comment: PARUL Ponce COMMENTS: [employer] D-Dimer values of <0.50 mg/L FEU can be used in combination with a pre-test probability model (e.g. Well's) to exclude pulmonary embolism (PE) disease, as well as an aid in the diagnosis of deep vein thrombosis (DVT). Performed By: #### L AB313, [id number] ####[employer]: STEVIE ELMORE ([id number])[facility] ([facility])[address] [place] [address] ED Nursing Noteon 02-21-2024 ED Nursing Note This RN spoke with patient at this time. Patient educated on the in and out of confusion that she has experienced and the results of UA. Patient educated that physician aware that she would like to speak with them. Patient agrees to stay at this time. Anoop Osborne RN 02/21/24 2114 Normal [facility] ED Nursing Note Upon this RN going [...] transport. Anoop Osborne RN 02/21/24 1815 Normal [facility] ED Nursing Note This RN asked patien t to check to ensure proper placement of pure wick for urine collection. Patient refused. Anoop Osborne RN 02/21/24 1701 Normal [facility] ED Nursing Note Patient to CT/XR via bed at this time. Anoop Osborne RN 02/21/24 1142 Normal [facility] ED Nursing Note Second set of cultur es drawn at this time and left at bedside, awaiting orders. Anoop Osborne RN 02/21/24 1535 Normal [facility] ED Nursing Note SNF sends patient by ambulance due to mental status change and fever of 107F. Patient was given PO Tylenol 1000mg. Normal [facility] ED Provider Noteon ED Provider Note EMERGENCY [...] Sensation is intact. Motor: No tremor. Coordination: Nktjki-Fngg-Selesy Test normal. Psychiatric: Attention and Perception: Perception [...] Patel MD (more content not included)... Normal [facility] ED Provider Note Patient seen and dispositioned [...] treatment. Janie Finch MD 02/21/24 1811 Normal [facility] Fibrin D-dimer FEU (PPP) [Ma ss/Vol]on 02-21-2024 Interpretation and review of laboratory results Abnormal [facility] LACTIC ACID WITH REFLEXon Lactate [Moles/Vol] 2.0 mmol/L Normal 0.7-2.0 [facility] Comment on above: Performed By: #### L AB103, LAB17 #### [employer]: STEVIE ELMORE ([id number]) [facility] [address] [place] [address] Laboratory - Chemistry and C hemistry - challengeon 02-21-2024 Glucose [Mass/Vol] 138 mg/dL High 70 - 100 mg/dL [facility] Troponin I.cardiac [Mass/Vol] 0.052 ng/mL High NINF - 0.034 ng/mL [facility] Glucose [Mass/Vol] 141 mg/dL High 70 - 100 mg/dL [facility] Troponin I.cardiac [Mass/Vol] 0.049 ng/mL High NINF - 0.034 ng/mL [facility] TSH Qn 2.113 m[IU]/L [facility] T[facility] I.cardiac [Mass/Vol] 0.047 ng/mL High NINF - 0.034 ng/mL [facility] Base excess Calc (BldV) [Moles/Vol] 4.7 mmol/L High -3 - 3 mmol/L [facility] CO2 (BldV) [Partial pressure] 59.7 mm[Hg] High [facility] HCO3 (Bld) [Moles/Vol] 33.9 mmol/L High 23.0 - 27.0 mmol/L [facility] Oxygen (BldV) [Partial pressure] 34.8 mm[Hg] mm Hg [facility] pH (BldV) 7.363 [pH] 7.330 - 7.430 pH [facility] Magnesium [Mass/Vol] 1.9 mg/dL 1.6 - 2 .3 mg/dL [facility] Lactate [Moles/Vol] 2.0 mmol/L 0.7 - 2. 0 mmol/L [facility] Glucose [Mass/Vol] 150 mg/dL [facility] Glucose [Mass/Vol] 150 mg/dL High 70 - 100 mg/dL [facility] Laboratory - Coagulationon 0 02-21-2024 Fibrin D-dimer FEU (PPP) [Mass/Vol] 0.91 mg/L High NINF - 0.50 mg/L [facility] PT Coag (Bld) [Time] 10.5 s 9.0 - 1 2.0 s [facility] Laboratory - Microbiology an d Antimicrobial susceptibilityon 02-21-2024 FLUAV RNA IGGY+probe Ql (Resp) Not detected Not Detected [facility] FLUBV RNA IGGY+probe Ql (Resp) Not detected Not Detected [facility] RSV RNA IGGY+probe Ql (Resp) Not detected Not Detected [facility] SARS-CoV-2 (COVID-19) RNA IGGY+probe Ql (Resp) Not detected Not Detected [facility] MAGNESIUMon 02-21-2024 Magnesium [Mass/Vol] 1.9 mg/dL Normal 1.6-2.3 [facility] Comment on above: Performed By: #### L AB103, LAB17 #### [employer]: STEVIE ELMORE ([id number]) [facility] [address] [place] [address] Magnesium [Mass/Vol]on 02-20 Interpretation and review of laboratory results Normal [facility] NT PRO BNPon 02-21-2024 Natriuretic peptide B (Bld) [Mass/Vol] 1320 pg/mL High <20-300 [facility] Comment on above: Performed By: #### L AB103, LAB17 #### [employer]: STEVIE ELMORE ([id number]) [facility] ([facility]) [address] Natriuretic peptide B [Mass/ Vol]on 02-21-2024 Natriuretic peptide B (Bld) [Mass/Vol] 1320 pg/mL High <20 - 300 [facility] No Panel Informationon 02-20 Interpretation and review of laboratory results Abnormal [facility] Interpretation and review of laboratory results Abnormal [facility] CV CPACS Interpretation and review of laboratory results Abnormal [facility] Interpretation and review of laboratory results Abnormal [facility] Interpretation and review of laboratory results Normal [facility] Interpretation and review of laboratory results Normal [facility] Interpretation and review of laboratory results Abnormal [facility] Radiology Study observation (narrative) [facility] Radiology Study observation (narrative) [facility] Radiology Study observation (narrative) [facility] Radiology Study observation (narrative) [facility] Radiology Study observation (narrative) [facility] PROTHROMBIN TIMEon INR Coag (PPP) [Relative time] 1.0 {INR} Normal 0.9-1.1 [facility] Comment on above: Result Comment: Ino mmended [...] Myocardial Infarction Performed By: #### L AB313, [id number] ####[employer]: STEVIE ELMORE ([id number])[facility] ([facility])[address] PT Coag (PPP) [Time] 10.5 s Normal 9.0-12.0 [facility] Comment on above: Performed By: #### L AB313, [id number] ####[employer]: STEVIE [id number])[facility] ([facility])[address] PT Coag (Bld) [Time]on 02-20 INR Coag (PPP) [Relative time] 1.0 {INR} 0.9 - 1.1 [facility] Interpretation and review of laboratory results Normal [facility] SARS-COV-2, FLU A/B, AND RSV COMBOon [...] In compliance with this authorization, please visit www.fda.gov/media/54176 5/download or www.fda.gov/media/38008 6/download to access the applicable information sheets. Normal [facility] Comment on above: Performed By: #### L [id number] ####[employer]: STEVIE ELMORE ([id number])[facility] ([facility])[address] [place] [address] THYROID STIMULATING HORMONEo n 02-21-2024 THYROID STIMULATING HORMONE 2.113 uIU/mL Normal 0.465-4.680 [facility] Comment on above: Performed By: #### L AB103, LAB17 #### [employer]: STEVIE ELMORE ([id number]) [facility] [address] [place] [address] TROPONIN Ion 02-21-2024 Troponin I.cardiac [Mass/Vol] 0.052 ng/mL High <0.034 [facility] Comment on above: Result Comment: ORDE R COMMENTS: Patients with high levels of Biotin oral intake (ie >5 mg/day) may have falsely decreased Troponin levels. Performed By: #### L AB103, LAB17 #### [employer]: STEVIE MOYAPERICO ([id number]) [facility] ([facility]) [address] Troponin I.cardiac [Mass/Vol] 0.049 ng/mL High <0.034 [facility] Comment on above: Result Comment: PARUL Ponce COMMENTS: Patients with high levels of Biotin oral intake (ie >5 mg/day) may have falsely decreased Troponin levels. Performed By: #### L AB103, LAB17 #### [employer]: STEVIE MOYAMARCELOPERICO ([id number]) [facility] ([facility]) [address] TROPONIN, WITH SERIAL REFLEX on 02-21-2024 Troponin I.cardiac [Mass/Vol] 0.047 ng/mL High <0.034 [facility] Comment on above: Result Comment: PARUL Ponce COMMENTS: Patients with high levels of Biotin oral intake (ie >5 mg/day) may have falsely decreased Troponin levels. Performed By: #### L AB103, LAB17 #### [employer]: STEVIE MOYAPERICO ([id number]) [facility] [address] TSH Qnon 02-21-2024 Interpretation and review of laboratory results Normal [facility] Troponin I.cardiac [Mass/Vol ]on 02-21-2024 Interpretation and review of laboratory results Abnormal [facility] Interpretation and review of laboratory results Abnormal [facility] URINE CULTUREon 02-21-2024 Bacteria identified Cx Nom [...] Non-susceptible NO = No Interpretation ] Normal [facility] Comment on above: Performed By: #### L AB239 ####[employer]: SILVIA FRENCH ([id number])[facility] ([facility])[address] [place] [address] Urinalysis complete panel (U )Ordered By: Reg Adame on 02-21-2024 Bacteria LM.HPF (Urine sed) [#/Area] Moderate Abnormal Negative /HPF [facility] Bilirubin Ql (U) Negative Negative mg/dL [facility] Clarity (U) Turbid Abnormal Clear [facility] Color (U) Yellow Lt. Yellow [facility] Epithelial cells.squamous LM.HPF (Urine sed) [#/Area] 6-[address] [facility] Glucose Ql (U) Normal Normal (<70) mg/dL [facility] Hemoglobin Ql (U) 0.2 mg/dL Abnormal Negative [facility] Interpretation and review of laboratory results Abnormal [facility] Ketones (U) [Mass/Vol] Negative Negat rhonda mg/dL [facility] Leukocyte esterase Test strip Ql (U) 500 Abnormal Negative Ha/uL [facility] Mucus LM.HPF (Urine sed) [#/Area] Few Negative /LPF [facility] Nitrite Ql (U) Positive Abnormal Negative [facility] pH (U) 6.0 [pH] 5.0 - 8.0 pH [facility] Protein (U) [Mass/Vol] 30 mg/dL Abnormal Negative [facility] RBC LM.HPF (Urine sed) [#/Area] 6-10 Abnormal [facility] Specific gravity (U) [Rel density] 1.046 High 1.005 - 1.030 [facility] Urobilinogen (U) [Mass/Vol] Normal Normal (0-1) mg/dL [facility] WBC LM.HPF (Urine sed) [#/Area] /[HPF] Abnormal [facility] Vital signson 02-21-2024 Oxygen saturation in Venous blood 62.6 % [facility] XR Chest Single viewon 02-20 [facility] Radiology Study observation (narrative) [facility] Whole blood hemoglobin A1c/t otal hemoglobin ratio (mass fraction)Ordered By: Lucy Quick on 12-31-2023 HbA1c (Bld) [Mass fraction] 6.1 % 3.8-5.6 [facility] Comment on above: Normal < 5.7 % Predi abetic 5.7 - 6.4 % Diabetic >or= 6.5 % Please note range changes. Basophil percentageOrdered B y: Lucy Quick on 12-10-2023 Basophil percentage 0-5 SEEN /hpf 0-5 [facility] Bilirubin Test strip Ql (U)O rdered By: Lucy Quick on 12-10-2023 Bilirubin Ql (U) Negative Negative [facility] Culture, urineOrdered By: Jemal Campos on 12-10-2023 Bacteria identified Cx Nom (U) Providencia stuartii [facility] Bacteria identified Cx Nom (U) Escherichia coli [facility] Bacteria identified Cx Nom (U) Proteus mirabilis [facility] Ketones Test strip Ql (U)Ord ered By: Lucy Quick on 12-10-2023 Ketones Ql (U) Negative Negative [facility] Mucus LM Ql (Urine sed)Order ed By: Lucy Quick on 12-10-2023 Mucus Ql (Urine sed) 0 SEEN /hpf [facility] Nitrite Test strip Ql (U)Ord ered By: Lucy Quick on 12-10-2023 Nitrite Ql (U) Negative Negative [facility] No Panel InformationOrdered By: Lucy Quick on 12-10-2023 Urine RBC 0 SEEN /hpf 0-5 [facility] Protein Test strip Ql (U)Ord ered By: Lucy Quick on 12-10-2023 Protein Ql (U) Negative Negative [facility] Squamous epithelial cells de tection in urine sediment by light microscopyOrdered By: Lucy Quick on 12-10-2023 Epithelial cells.squamous LM Ql (Urine sed) 0-5 SEEN /hpf 5-10 [facility] Urine blood detectionOrdered By: Lucy Quick on 12-10-2023 RBC Ql (U) Negative Negative [facility] Urine clarityOrdered By: Josee Quick on 12-10-2023 Clarity (U) Clear Clear [facility] Urine color determinationOrd ered By: Lucy Quick on 12-10-2023 Color (U) Straw Yellow [facility] Urine glucose detectionOrder ed By: Lucy Quick on 12-10-2023 Glucose Ql (U) Normal mg/dl Normal [facility] Urine leukocyte esterase det ection by dipstickOrdered By: Lucy Quick on 12-10-2023 Leukocyte esterase Test strip Ql (U) 25 /ul Negative [facility] Urine pHOrdered By: Lucy mcguire on 12-10-2023 pH (U) 7.0 [pH] 5.0 - 8.0 [facility] Urine sediment bacteria coun t by microscopy (number/high power field)Ordered By: Lucy Quick on 12-10-2023 Bacteria LM.HPF (Urine sed) [#/Area] 1 /[HPF] None Seen [facility] Urine specific gravity measu rementOrdered By: Lucy Quick on 12-10-2023 Specific gravity (U) [Rel density] 1.005 1.002-1.030 [facility] Urine urobilinogen measureme ntOrdered By: Lucy Quick on 12-10-2023 Urobilinogen Ql (U) Normal mg/dl Normal [facility] Whole blood hemoglobin A1c/t otal hemoglobin ratio (mass fraction)Ordered By: Lucy Quick on 10-04-2023 HbA1c (Bld) [Mass fraction] 7.1 % 3.8-5.6 [facility] Comment on above: Normal < 5.7 % Predi abetic 5.7 - 6.4 % Diabetic >or= 6.5 % Please note range changes. Basophil percentageOrdered B y: Lucy Quick on 08-02-2023 Bilirubin [Mass/Vol] 0.10 mg/dL 0.20-1.00 [facility] Comment on above: For patients on eltr ombopag therapy, use of Dimension [place] TBIL is not recommended. Chloride [Moles/Vol] 104 mmol/L 98-107 [facility] Glucose [Mass/Vol] 370 mg/dL 74-106 [facility] Comment on above: Glucose result great er than or equal to 200 mg/dLsuggests DIABETES MELLITUS per A.D.A. criteria. Potassium [Moles/Vol] 4.4 mmol/L 3.5-5.1 [facility] Protein [Mass/Vol] 5.8 g/dL 6.4-8.2 [facility] Sodium [Moles/Vol] 138 mmol/L 136-145 [facility] WBC (Bld) [#/Vol] 5.4 10*3/uL 4.4-11.0 [facility] Blood erythrocytes count (nu mber/volume)Ordered By: Lucy Quick on 08-02-2023 RBC (Bld) [#/Vol] 3.66 10*6/uL 4.2-5.4 [facility] Blood hemoglobin measurement (mass/volume)Ordered By: Lucy Quick on 08-02-2023 Hemoglobin (Bld) [Mass/Vol] 10.3 g/dL 12.0-15.0 [facility] Blood platelet mean volumeOr dered By: Lucy Quick on 08-02-2023 Platelet mean volume (Bld) [Entitic vol] 8.9 fL 6.2-12.0 [facility] Determination of erythrocyte mean corpuscular volume (MCV)Ordered By: Lucy Quick on 08-02-2023 MCV (RBC) [Entitic vol] 99.5 fL 81-99 [facility] Hematocrit Auto (Bld) [Volum e fraction]Ordered By: Lucy Quick on 08-02-2023 Hematocrit (Bld) [Volume fraction] 36.4 % 37-47 [facility] Laboratory - Chemistry and C hemistry - challengeOrdered By: Lucy Quick on 08-02-2023 ALP [Catalytic activity/Vol] 77 U/L 45-117 [facility] ALT [Catalytic activity/Vol] 13 U/L 13-56 [facility] CO2 [Moles/Vol] 28.0 mmol/L 21.0-32.0 [facility] Globulin (S) [Mass/Vol] 3.9 g/dL 2.2-4.2 [facility] Urea nitrogen/Creatinine [Mass ratio] 17.6 mg/mg 10-20 [facility] Laboratory - Hematology and Cell countsOrdered By: Lucy Quick on 08-02-2023 Erythrocyte distribution width (RBC) [Entitic vol] 48.1 fL 35.1-43.9 [facility] Erythrocyte distribution width (RBC) [Ratio] 13.1 % 11.6-14.6 [facility] MCH (RBC) [Entitic mass] 28.1 pg 27.0-32.0 [facility] MCHC Auto (RBC) [Mass/Vol]Or dered By: Lucy Quick on 08-02-2023 MCHC (RBC) [Mass/Vol] 28.3 g/dL 32-36 [facility] No Panel InformationOrdered By: Lucy Quick on 08-02-2023 Estimated GFR (MDRD) Amer 55 mL/min >60 [facility] Comment on above: GFR Calc Estimated GFR (MDRD) Non-Af Amer 46 mL/min >60 [facility] Comment on above: Non- GFR Calc Platelets bldOrdered By: Josee Quick on 08-02-2023 Platelets (Bld) [#/Vol] 257 10*3/uL 150-450 [facility] Serum or plasma albumin catracho urement (mass/volume)Ordered By: Lucy Quick on 08-02-2023 Albumin [Mass/Vol] 1.9 g/dL 3.2-5.0 [facility] Serum or plasma albumin/glob ulin mass ratioOrdered By: Lucy Quick on 08-02-2023 Albumin/Globulin [Mass ratio] 0.5 {ratio} 0.9-2.4 [facility] Serum or plasma calcium catracho urement (mass/volume)Ordered By: Lucy Quick on 08-02-2023 Calcium [Mass/Vol] 8.6 mg/dL 8.5-10.1 [facility] Serum or plasma creatinine m easurement (mass/volume)Ordered By: Lucy Quick on 08-02-2023 Creatinine [Mass/Vol] 1.25 mg/dL 0.55-1.02 [facility] Comment on above: The validity of the calculated GFR & GFRAA in patients over 70 years has not been determined. Clinical correlation is essential. Serum or plasma urea nitroge n measurement (mass/volume)Ordered By: Lucy Quick on 08-02-2023 Urea nitrogen [Mass/Vol] 22 mg/dL 7-18 [facility] Thin prep Papanicolaou smear with manual screeningOrdered By: Lucy Quick on 08-02-2023 Thin prep Papanicolaou smear with manual screening 8 U/L 15-37 [facility] Thin prep Papanicolaou smear with manual screening 6 5-15 [facility] Basophil percentageOrdered B y: Lucy Quick on 07-16-2023 Basophil percentage 0-5 SEEN /hpf 0-5 [facility] Bilirubin Test strip Ql (U)O rdered By: Lucy Quick on 07-16-2023 Bilirubin Ql (U) Negative Negative [facility] Culture, urineOrdered By: Jemal Campos on 07-16-2023 Bacteria identified Cx Nom (U) Mixed Gram Pos & Gram Neg Org [facility] Ketones Test strip Ql (U)Ord ered By: Lucy Quick on 07-16-2023 Ketones Ql (U) Negative Negative [facility] Mucus LM Ql (Urine sed)Order ed By: Lucy Quick on 07-16-2023 Mucus Ql (Urine sed) 0 SEEN /hpf [facility] Nitrite Test strip Ql (U)Ord ered By: Lucy Quick on 07-16-2023 Nitrite Ql (U) Negative Negative [facility] Protein Test strip Ql (U)Ord ered By: Lucy Quick on 07-16-2023 Protein Ql (U) 15 mg/dl Negative [facility] Squamous epithelial cells de tection in urine sediment by light microscopyOrdered By: Lucy Quick on 07-16-2023 Epithelial cells.squamous LM Ql (Urine sed) 5-10 SEEN /hpf 5-10 [facility] Urine blood detectionOrdered By: Lucy Quick on 07-16-2023 RBC Ql (U) 10 /ul Negative [facility] RBC Ql (U) 0-5 SEEN /hpf 0-5 [facility] Urine clarityOrdered By: Josee Quick on 07-16-2023 Clarity (U) Sl. Cloudy Clear [facility] Urine color determinationOrd ered By: Lucy Quick on 07-16-2023 Color (U) Yellow Yellow [facility] Urine glucose detectionOrder ed By: Lucy Quick on 07-16-2023 Glucose Ql (U) Normal mg/dl Normal [facility] Urine leukocyte esterase det ection by dipstickOrdered By: Lucy Quick on 07-16-2023 Leukocyte esterase Test strip Ql (U) 25 /ul Negative [facility] Urine pHOrdered By: Lucy mcguire on 07-16-2023 pH (U) 6.0 [pH] 5.0 - 8.0 [facility] Urine sediment bacteria coun t by microscopy (number/high power field)Ordered By: Lucy Quick on 07-16-2023 Bacteria LM.HPF (Urine sed) [#/Area] 1 /[HPF] None Seen [facility] Urine specific gravity measu rementOrdered By: Lucy Quick on 07-16-2023 Specific gravity (U) [Rel density] 1.015 1.002-1.030 [facility] Urobilinogen Auto test strip Ql (U)Ordered By: Lucy Quick on 07-16-2023 Urobilinogen Ql (U) Normal mg/dl Normal [facility] Basophil percentageOrdered B y: Lucy Quick on 07-03-2023 Bilirubin [Mass/Vol] 0.20 mg/dL 0.20-1.00 [facility] Comment on above: For patients on eltr ombopag therapy, use of Dimension [place] TBIL is not recommended. Chloride [Moles/Vol] 103 mmol/L 98-107 [facility] Glucose [Mass/Vol] 110 mg/dL 74-106 [facility] Comment on above: Fasting Glucose resu lt from 100 to 125 mg/dL suggests IMPAIRED HOMEOSTASIS per A.D.A. criteria. Potassium [Moles/Vol] 3.6 mmol/L 3.5-5.1 [facility] Protein [Mass/Vol] 6.1 g/dL 6.4-8.2 [facility] Sodium [Moles/Vol] 140 mmol/L 136-145 [facility] WBC (Bld) [#/Vol] 6.9 10*3/uL 4.4-11.0 [facility] Blood erythrocytes count (nu mber/volume)Ordered By: Lucy Quick on 07-03-2023 RBC (Bld) [#/Vol] 3.29 10*6/uL 4.2-5.4 [facility] Blood hemoglobin measurement (mass/volume)Ordered By: Lucy Quick on 07-03-2023 Hemoglobin (Bld) [Mass/Vol] 9.6 g/dL 12.0-15.0 [facility] Blood platelet mean volumeOr dered By: Lucy Quick on 07-03-2023 Platelet mean volume (Bld) [Entitic vol] 8.2 fL 6.2-12.0 [facility] Determination of erythrocyte mean corpuscular volume (MCV)Ordered By: Lucy Quick on 07-03-2023 MCV (RBC) [Entitic vol] 94.2 fL 81-99 [facility] Hematocrit Auto (Bld) [Volum e fraction]Ordered By: Lucy Quick on 07-03-2023 Hematocrit (Bld) [Volume fraction] 31.0 % 37-47 [facility] Laboratory - Chemistry and C hemistry - challengeOrdered By: Lucy Quick on 07-03-2023 ALP [Catalytic activity/Vol] 74 U/L 45-117 [facility] ALT [Catalytic activity/Vol] 13 U/L 13-56 [facility] CO2 [Moles/Vol] 31.0 mmol/L 21.0-32.0 [facility] Globulin (S) [Mass/Vol] 3.7 g/dL 2.2-4.2 [facility] Urea nitrogen/Creatinine [Mass ratio] 23.8 mg/mg 10-20 [facility] Laboratory - Hematology and Cell countsOrdered By: Lucy Quick on 07-03-2023 Erythrocyte distribution width (RBC) [Entitic vol] 46.0 fL 35.1-43.9 [facility] Erythrocyte distribution width (RBC) [Ratio] 13.3 % 11.6-14.6 [facility] MCH (RBC) [Entitic mass] 29.2 pg 27.0-32.0 [facility] MCHC Auto (RBC) [Mass/Vol]Or dered By: Lucy Quick on 07-03-2023 MCHC (RBC) [Mass/Vol] 31.0 g/dL 32-36 [facility] No Panel InformationOrdered By: Lucy Quick on 07-03-2023 Estimated GFR (MDRD) Amer 47 mL/min >60 [facility] Comment on above: GFR Calc Estimated GFR (MDRD) Non-Af Amer 39 mL/min >60 [facility] Comment on above: Non- GFR Calc Thyroid Stimulating Hormone (TSH) 4.21 uIU/mL 0.358-3.74 [facility] Platelets bldOrdered By: Josee Quick on 07-03-2023 Platelets (Bld) [#/Vol] 314 10*3/uL 150-450 [facility] Serum or plasma albumin catracho urement (mass/volume)Ordered By: Lucy Quick on 07-03-2023 Albumin [Mass/Vol] 2.4 g/dL 3.2-5.0 [facility] Serum or plasma albumin/glob ulin mass ratioOrdered By: Lucy Quick on 07-03-2023 Albumin/Globulin [Mass ratio] 0.6 {ratio} 0.9-2.4 [facility] Serum or plasma calcium catracho urement (mass/volume)Ordered By: Lucy Quick on 07-03-2023 Calcium [Mass/Vol] 8.6 mg/dL 8.5-10.1 [facility] Serum or plasma creatinine m easurement (mass/volume)Ordered By: Lucy Quick on 07-03-2023 Creatinine [Mass/Vol] 1.43 mg/dL 0.55-1.02 [facility] Comment on above: The validity of the calculated GFR & GFRAA in patients over 70 years has not been determined. Clinical correlation is essential. Serum or plasma urea nitroge n measurement (mass/volume)Ordered By: Lucy Quick on 07-03-2023 Urea nitrogen [Mass/Vol] 34 mg/dL 7-18 [facility] Thin prep Papanicolaou smear with manual screeningOrdered By: Lucy Quick on 07-03-2023 Thin prep Papanicolaou smear with manual screening 10 U/L 15-37 [facility] Thin prep Papanicolaou smear with manual screening 6 5-15 [facility] Whole blood hemoglobin A1c/t otal hemoglobin ratio (mass fraction)Ordered By: Lucy Quick on 07-03-2023 HbA1c (Bld) [Mass fraction] 6.7 % 3.8-5.6 [facility] Comment on above: Normal < 5.7 % Predi abetic 5.7 - 6.4 % Diabetic >or= 6.5 % Please note range changes. ED NOTEon 06-30-2023 ED NOTE HNO ID: [id number] Author: Roseanne Ontiveros RN Service: Emergency Medicine Author Type: Registered Nurse Type: ED Notes Filed: 06/30/2023 12:29 AM Note Text: Transport arrived. Normal [facility] ED NOTE HNO ID: [id number] Author: Roseanne Ontiveros RN Service: Emergency Medicine Author Type: Registered Nurse Type: ED Notes Filed: 06/29/2023 11:33 PM Note Text: Transport called. ETA 0030. Normal [facility] ED PROV NOTEon 06-30-2023 ED PROV NOTE Normal [facility] ALLIED HEALTHon 06-29-2023 ALLIED HEALTH Normal [facility] Bilirubin Test strip Ql (U)O rdered By: Lucy Quick on 06-29-2023 Bilirubin Ql (U) Negative Negative [facility] CBC W Auto Differential pane l (Bld)on 06-29-2023 Basophils (Bld) [#/Vol] 0.05 10*3/uL Normal <0.11 [facility] Comment on above: Order Comment: Speci men Type: BLOOD SPECIMENOrdering Facility: [facility] Address: [address] [place] [id number] Performed By: #### 5 7021-8 ####[facility]ATORYCLIA [id number] [place] [address] [place] Basophils/100 WBC (Bld) 0.8 % Normal A [facility] Comment on above: Order Comment: Speci men Type: BLOOD SPECIMENOrdering Facility: [facility] Address: [address] [place] [address] Performed By: #### 5 7021-8 ####[facility]ATORYCLIA [id number] [address] Differential cell count method Nom (Bld) Auto Normal [facility] Comment on above: Order Comment: Speci men Type: BLOOD SPECIMENOrdering Facility: [facility] Address: [address] [place] [address] Performed By: #### 5 7021-8 ####[facility]ATORYCLIA [id number] [address] Eosinophils (Bld) [#/Vol] 0.37 10*3/uL Normal <0.46 [facility] Comment on above: Order Comment: Speci men Type: BLOOD SPECIMENOrdering Facility: [facility] Address: [address] [place] [address] Performed By: #### 5 7021-8 ####[facility]ATORYCLIA [id number] [address] Eosinophils/100 WBC (Bld) 6.1 % Normal [facility] Comment on above: Order Comment: Speci men Type: BLOOD SPECIMENOrdering Facility: [facility] Address: [address] [place] [address] Performed By: #### 5 7021-8 ####[facility]ATORYCLIA [id number] [address] Erythrocyte distribution width (RBC) [Ratio] 13.4 % Normal 11.5-15.0 [facility] Comment on above: Order Comment: Speci men Type: BLOOD SPECIMENOrdering Facility: [facility] Address: [address] [place] [address] Performed By: #### 5 7021-8 ####[facility]ORATORYCLIA [id number] [place] [address] [place] Hematocrit (Bld) [Volume fraction] 31.0 % Low 36.0-46.0 [facility] Comment on above: Order Comment: Speci men Type: BLOOD SPECIMENOrdering Facility: [facility] Address: [address] [place] [address] Performed By: #### 5 7021-8 ####[facility]ORATORYCLIA [id number] [place] [address] [place] Hemoglobin (Bld) [Mass/Vol] 9.8 g/dL Low 11.5-15.5 [facility] Comment on above: Order Comment: Speci men Type: BLOOD SPECIMENOrdering Facility: [facility] Address: [address] [place] [address] Performed By: #### 5 7021-8 ####[facility]ATORYCLIA [id number] [place] [address] [place] Immature granulocytes (Bld) [#/Vol] 0.18 10*3/uL High <0.10 [facility] Comment on above: Order Comment: Speci men Type: BLOOD SPECIMENOrdering Facility: [facility] Address: [address] [place] [address] Performed By: #### 5 7021-8 ####[facility]ATORYCLIA [id number] [address] [place] Immature granulocytes/100 WBC (Bld) 3.0 % Normal [facility] Comment on above: Order Comment: Speci men Type: BLOOD SPECIMENOrdering Facility: [facility] Address: [address] [place] [address] Performed By: #### 5 7021-8 ####[facility]ORATORYCLIA [id number] [place] [address] [place] Lymphocytes (Bld) [#/Vol] 1.68 10*3/uL Normal 1.00-4.00 [facility] Comment on above: Order Comment: Speci men Type: BLOOD SPECIMENOrdering Facility: [facility] Address: [address] [place] [address] Performed By: #### 5 7021-8 ####[facility]ATORYCLIA [id number] [address] Lymphocytes/100 WBC (Bld) 27.9 % Normal [facility] Comment on above: Order Comment: Speci men Type: BLOOD SPECIMENOrdering Facility: [facility] Address: [address] [place] [address] Performed By: #### 5 7021-8 ####[facility]ORATORYCLIA [id number] [address] MCH (RBC) [Entitic mass] 28.7 pg Normal 26.0-34.0 [facility] Comment on above: Order Comment: Speci men Type: BLOOD SPECIMENOrdering Facility: [facility] Address: [address] [place] [address] Performed By: #### 5 7021-8 ####[facility]ATORYCLIA [id number] [address] MCHC (RBC) [Mass/Vol] 31.6 g/dL Normal 30.5-36.0 [facility] Comment on above: Order Comment: Speci men Type: BLOOD SPECIMENOrdering Facility: [facility] Address: [address] [place] [address] Performed By: #### 5 7021-8 ####[facility]ORATORYCLIA [id number] [address] MCV (RBC) [Entitic vol] 90.6 fL Normal 80.0-100.0 [facility] Comment on above: Order Comment: Speci men Type: BLOOD SPECIMENOrdering Facility: [facility] Address: [address] [place] [address] Performed By: #### 5 7021-8 ####[facility]ATORYCLIA [id number] [address] Monocytes (Bld) [#/Vol] 0.68 10*3/uL Normal <0.87 [facility] Comment on above: Order Comment: Speci men Type: BLOOD SPECIMENOrdering Facility: [facility] Address: [address] [place] [address] Performed By: #### 5 7021-8 ####[facility]ORATORYCLIA [id number] [address] Monocytes/100 WBC (Bld) 11.3 % Normal A [facility] Comment on above: Order Comment: Speci men Type: BLOOD SPECIMENOrdering Facility: [facility] Address: [address] [place] [address] Performed By: #### 5 7021-8 ####[facility] LABORATORYCLIA [id number] [address] [place] Neutrophils (Bld) [#/Vol] 3.07 10*3/uL Normal 1.45-7.50 [facility] Comment on above: Order Comment: Speci men Type: BLOOD SPECIMENOrdering Facility: [facility] Address: [address] [place] [address] Performed By: #### 5 7021-8 ####[facility]ATORYCLIA [id number] [address] Neutrophils/100 WBC (Bld) 50.9 % Normal [facility] Comment on above: Order Comment: Speci men Type: BLOOD SPECIMENOrdering Facility: [facility] Address: [address] [place] [address] Performed By: #### 5 7021-8 ####[facility] LABORATORYCLIA [id number] [address] [place] Nucleated RBC (Bld) [#/Vol] 10*3/uL Normal <0.01 [facility] Comment on above: Order Comment: Speci men Type: BLOOD SPECIMENOrdering Facility: [facility] Address: [address] [place] [address] Performed By: #### 5 7021-8 ####[facility]ORATORYCLIA [id number] [address] OF [place] Nucleated RBC/100 WBC (Bld) [Ratio] 0.0 /100 WBC Normal [facility] Comment on above: Order Comment: Speci men Type: BLOOD SPECIMENOrdering Facility: [facility] Address: [address] [place] [address] Performed By: #### 5 7021-8 ####[facility]ORATORYCLIA [id number] [place] [address] [place] Platelet mean volume (Bld) [Entitic vol] 7.9 fL Low 9.0-12.7 [facility] Comment on above: Order Comment: Speci men Type: BLOOD SPECIMENOrdering Facility: [facility] Address: [address] [place] [address] Performed By: #### 5 7021-8 ####[facility]ORATORYCLIA [id number] [place] [address] [place] Platelets (Bld) [#/Vol] 279 10*3/uL Normal 150-400 [facility] Comment on above: Order Comment: Speci men Type: BLOOD SPECIMENOrdering Facility: [facility] Address: [address] [place] [address] Performed By: #### 5 7021-8 ####[facility]ATORYCLIA [id number] [place] [address] [place] RBC (Bld) [#/Vol] 3.42 10*6/uL Low 3.90-5.20 [facility] Comment on above: Order Comment: Speci men Type: BLOOD SPECIMENOrdering Facility: [facility] Address: [address] [place] [address] Performed By: #### 5 7021-8 ####[facility]ORATORYCLIA [id number] [place] [address] [place] WBC (Bld) [#/Vol] 6.03 10*3/uL Normal 3.70-11.00 [facility] Comment on above: Order Comment: Speci men Type: BLOOD SPECIMENOrdering Facility: [facility] Address: [address] [place] [address] Performed By: #### 5 7021-8 ####[facility]ORATORYCLIA [id number] [place] [address] [place] [address] BRAIN WO IVCONon 06-29-[address] BRAIN WO IVCON Normal [facility] Comprehensive metabolic 2000 panelon 06-29-2023 Albumin [Mass/Vol] 3.5 g/dL Low 3.9-4.9 [facility] Comment on above: Order Comment: Speci men Type: BLOOD SPECIMENOrdering Facility: [facility] Address: [address] [address] Performed By: #### 2 4323-8 ####[facility]ORATORYCLIA [id number] [address] OF [facility] ALP [Catalytic activity/Vol] 84 U/L Normal 34-123 [facility] Comment on above: Order Comment: Speci men Type: BLOOD SPECIMENOrdering Facility: [facility] Address: [address] [place] [address] Performed By: #### 2 4323-8 ####[facility]ORATORYCLIA [id number] [address] STATES OF [facility] ALT With P-5'-P [Catalytic activity/Vol] 10 U/L Normal 7-38 [facility] Comment on above: Order Comment: Speci men Type: BLOOD SPECIMENOrdering Facility: [facility] Address: [address] [place] [address] Performed By: #### 2 4323-8 ####[facility]ATORYCLIA [id number] [address] Anion gap [Moles/Vol] 13 mmol/L Normal 9-18 [facility] Comment on above: Order Comment: Speci men Type: BLOOD SPECIMENOrdering Facility: [facility] Address: [address] [place] [address] Performed By: #### 2 4323-8 ####[facility]ATORYCLIA [id number] [address] [place] AST With P-5'-P [Catalytic activity/Vol] 12 U/L Low 13-35 [facility] Comment on above: Order Comment: Speci men Type: BLOOD SPECIMENOrdering Facility: [facility] Address: [address] [place] [address] Performed By: #### 2 4323-8 ####[facility] LABORATORYCLIA [id number] [place] [address] [place] Bilirubin [Mass/Vol] 0.3 mg/dL Normal 0.2-1.3 [facility] Comment on above: Order Comment: Speci men Type: BLOOD SPECIMENOrdering Facility: [facility] Address: [address] [place] [address] Performed By: #### 2 4323-8 ####[facility]ATORYCLIA [id number] [place] [address] [place] Calcium [Mass/Vol] 9.0 mg/dL Normal 8.5-10.2 [facility] Comment on above: Order Comment: Speci men Type: BLOOD SPECIMENOrdering Facility: [facility] Address: [address] [place] [address] Performed By: #### 2 4323-8 ####[facility]ATORYCLIA [id number] [place] [address] [place] Chloride [Moles/Vol] 98 mmol/L Normal 97-105 [facility] Comment on above: Order Comment: Speci men Type: BLOOD SPECIMENOrdering Facility: [facility] Address: [address] [place] [address] Performed By: #### 2 4323-8 ####[facility]ORATORYCLIA [id number] [place] [address] [place] CO2 [Moles/Vol] 28 mmol/L Normal 22-30 [facility] Comment on above: Order Comment: Speci men Type: BLOOD SPECIMENOrdering Facility: [facility] Address: [address] [place] [address] Performed By: #### 2 4323-8 ####[facility]ORATORYCLIA [id number] [place] [address] [place] Creatinine [Mass/Vol] 1.30 mg/dL High 0.58-0.96 [facility] Comment on above: Order Comment: Scott seals Type: BLOOD SPECIMENOrdering Facility: [facility] Address: [address] [place] [address] Performed By: #### 2 4323-8 ####[facility]ORATORYCLIA [id number] [address] Creatinine and Glomerular filtration rate.predicted panel (S/P/Bld) 46 mL/min/1.73m??? Low >=60 [facility] Comment on above: Order Comment: Scott seals Type: BLOOD SPECIMENOrdering Facility: [facility] Address: [address] [place] [address] Result Comment: Petra mated Glomerular Filtration Rate [...] actual GFR. Performed By: #### 2 4323-8 ####[facility]ORATORYCLIA [id number] [place] [address] [place] Glucose [Mass/Vol] 167 mg/dL High 74-99 [facility] Comment on above: Order Comment: Scott seals Type: BLOOD SPECIMENOrdering Facility: [facility] Address: [address] [place] [address] Result Comment: The [place] [employer] Association (ADA) provides guidance for cutoff [...] Standards of Medical Care in Diabetes 2016, [place] [employer]. Diabetes Care. 2016.39(Suppl 1). Performed By: #### 2 4323-8 ####[facility] LABORATORYCLIA [id number] [address] STATES OF [facility] Potassium [Moles/Vol] 3.9 mmol/L Normal 3.7-5.1 [facility] Comment on above: Order Comment: Speci men Type: BLOOD SPECIMENOrdering Facility: [facility] Address: [address] [place] [address] Performed By: #### 2 4323-8 ####[facility]ORATORYCLIA [id number] [address] STATES OF [facility] Protein [Mass/Vol] 6.3 g/dL Normal 6.3-8.0 [facility] Comment on above: Order Comment: Speci men Type: BLOOD SPECIMENOrdering Facility: [facility] Address: [address] [place] [address] Performed By: #### 2 4323-8 ####[facility]ORATORYCLIA [id number] [address] Sodium [Moles/Vol] 139 mmol/L Normal 136-144 [facility] Comment on above: Order Comment: Speci men Type: BLOOD SPECIMENOrdering Facility: [facility] Address: [address] [place] [address] Performed By: #### 2 4323-8 ####[facility] LABORATORYCLIA [id number] [address] [place] Urea nitrogen [Mass/Vol] 34 mg/dL High 7-21 [facility] Comment on above: Order Comment: Speci men Type: BLOOD SPECIMENOrdering Facility: [facility] Address: [address] [place] [address] Performed By: #### 2 4323-8 ####[facility] LABORATORYCLIA [id number] [address] [place] Culture, urineOrdered By: Jemal Campos on 06-29-2023 Bacteria identified Cx Nom (U) Aerococcus viridans. [facility] Bacteria identified Cx Nom (U) Pseudomonas stutzeri [facility] Bacteria identified Cx Nom (U) Aerococcus urinae [facility] ECG COMPLETEon 06-29-2023 ECG COMPLETE Normal [facility] ED PROV NOTEon 06-29-2023 ED PROV NOTE Normal [facility] Ethanol SerPl-mCncon 023 Ethanol [Mass/Vol] mg/dL Normal <11 [facility] Comment on above: Order Comment: Speci men Type: BLOOD SPECIMENOrdering Facility: [facility] Address: [address] [place] [id number] Performed By: #### 5 643-2 ####[facility]ATORYCLIA [id number] [place] [address] [place] Ketones Test strip Ql (U)Ord ered By: Lucy Quick on 06-29-2023 Ketones Ql (U) Negative Negative [facility] Nitrite Test strip Ql (U)Ord ered By: Lucy Quick on 06-29-2023 Nitrite Ql (U) Negative Negative [facility] Protein Test strip Ql (U)Ord ered By: Lucy Quick on 06-29-2023 Protein Ql (U) Negative Negative [facility] Review by pathologistOrdered By: Lucy Quick on 06-29-2023 Pathologist review Anselmo (Unsp spec) [Interp] See comment [facility] Comment on above: ABUNDANT DEGENERATIN G MACROPHAGES [...] result in uninfected individuals): Not detected Normal [facility] Comment on above: Performed By: #### 9 4500-6 ####[facility]ORATORYCLIA [id number] [address] TOX SCREEN ROUT URon 023 Amphetamines Confirm (U) [Mass/Vol] Negative Normal Negative [facility] Comment on above: Order Comment: Speci men Type: URINE SPECIMENOrdering Facility: [facility] Address: [address] [place] [address] Result Comment: Cuto ff threshold at 1000 ng/mL. Performed By: #### U TOX2 ####[facility]ORATORYCLIA [id number] [address] BARBITURATES, URINE Negative Normal Negative [facility] Comment on above: Order Comment: Speci men Type: URINE SPECIMENOrdering Facility: [facility] Address: [address] [place] [address] Result Comment: Cuto ff threshold at 200 ng/mL. Performed By: #### U TOX2 ####[facility] LABORATORYCLIA [id number] [address] OF [place] BENZODIAZEPINES, UR Negative Normal Negative [facility] Comment on above: Order Comment: Speci men Type: URINE SPECIMENOrdering Facility: [facility] Address: [address] [place] [address] Result Comment: Cuto ff threshold at 200 ng/mL. Performed By: #### U TOX2 ####[facility]ORATORYCLIA [id number] [address] Cannabinoids Screen Ql (U) Negative Normal Negative [facility] Comment on above: Order Comment: Speci men Type: URINE SPECIMENOrdering Facility: [facility] Address: [address] [address] Result Comment: Cuto ff threshold at 50 ng/mL. Performed By: #### U TOX2 ####[facility]ORATORYCLIA [id number] [place] [address] [place] Cocaine Ql (U) Negative Normal Negative [facility] Comment on above: Order Comment: Speci men Type: URINE SPECIMENOrdering Facility: [facility] Address: [address] [place] [address] Result Comment: Cuto ff threshold at 300 ng/mL. Performed By: #### U TOX2 ####[facility]ORATORYCLIA [id number] [address] OF [place] Ethanol (U) [Mass/Vol] <11 Normal <11 [facility] Comment on above: Order Comment: Speci men Type: URINE SPECIMENOrdering Facility: [facility] Address: [address] [place] [address] Performed By: #### U TOX2 ####[facility]ORATORYCLIA [id number] [address] Opiates Screen Ql (U) Negative Normal Negative [facility] Comment on above: Order Comment: Speci men Type: URINE SPECIMENOrdering Facility: [facility] Address: [address] [place] [address] Result Comment: Cuto ff threshold at 300 ng/mL. Performed By: #### U TOX2 ####[facility]ORATORYCLIA [id number] [address] OF [place] oxyCODONE cutoff Screen (U) [Mass/Vol] Positive Abnormal Negative [facility] Comment on above: Order Comment: Speci men Type: URINE SPECIMENOrdering Facility: [facility] Address: [address] [address] Result Comment: Cuto ff threshold at 100 ng/mL. Performed By: #### U TOX2 ####[facility]ORATORYCLIA [id number] [address] Phencyclidine Ql (U) Negative Normal Negative [facility] Comment on above: Order Comment: Speci men Type: URINE SPECIMENOrdering Facility: [facility] Address: [address] [place] [address] Result Comment: Cuto ff threshold at 25 ng/mL. Performed By: #### U TOX2 ####[facility]ORATORYCLIA [id number] [address] Urinalysis complete pnl Uron 06-29-2023 Urinalysis complete panel (U) Normal [facility] Comment on above: Order Comment: Speci men Type: URINE SPECIMENOrdering Facility: [facility] Address: [address] [place] [address] Performed By: #### 2 4356-8 ####[facility]ORATORYCLIA [id number] [address] Urine blood detectionOrdered By: Lucy Quick on 06-29-2023 RBC Ql (U) Negative Negative [facility] Urine clarityOrdered By: Josee Quick on 06-29-2023 Clarity (U) Clear Clear [facility] Urine color determinationOrd ered By: Lucy Quick on 06-29-2023 Color (U) Yellow Yellow [facility] Urine glucose detectionOrder ed By: Lucy Quick on 06-29-2023 Glucose Ql (U) Normal mg/dl Normal [facility] Urine leukocyte esterase det ection by dipstickOrdered By: Lucy Quick on 06-29-2023 Leukocyte esterase Test strip Ql (U) Negative Negative [facility] Urine pHOrdered By: Lucy mcguire on 06-29-2023 pH (U) 6.0 [pH] 5.0 - 8.0 [facility] Urine specific gravity measu rementOrdered By: Lucy Quick on 06-29-2023 Specific gravity (U) [Rel density] 1.015 1.002-1.030 [facility] Urobilinogen Auto test strip Ql (U)Ordered By: Lucy Quick on 06-29-2023 Urobilinogen Ql (U) Normal mg/dl Normal [facility] XR CHEST 2V FRONTAL/LATon XR CHEST 2V FRONTAL/LAT Normal A [facility] CNPNon 05-24-2023 CNPN Normal [facility] Basophil percentageOrdered B y: Lucy Quick on 05-21-2023 Basophil percentage 0-5 SEEN /hpf 0-5 [facility] Bilirubin Test strip Ql (U)O rdered By: Lucy Quick on 05-21-2023 Bilirubin Ql (U) Negative Negative [facility] Culture, urineOrdered By: Jemal Campos on 05-21-2023 Bacteria identified Cx Nom (U) Aerococcus viridans. [facility] Ketones Test strip Ql (U)Ord ered By: Lucy Quick on 05-21-2023 Ketones Ql (U) 15 mg/dl Negative [facility] Mucus LM Ql (Urine sed)Order ed By: Lucy Quick on 05-21-2023 Mucus Ql (Urine sed) 0 SEEN /hpf [facility] Nitrite Test strip Ql (U)Ord ered By: Lucy Quick on 05-21-2023 Nitrite Ql (U) Negative Negative [facility] Protein Test strip Ql (U)Ord ered By: Lucy Quick on 05-21-2023 Protein Ql (U) 15 mg/dl Negative [facility] Squamous epithelial cells de tection in urine sediment by light microscopyOrdered By: Lucy Quick on 05-21-2023 Epithelial cells.squamous LM Ql (Urine sed) 0 SEEN /hpf 5-10 [facility] Urine blood detectionOrdered By: Lucy Quick on 05-21-2023 RBC Ql (U) Negative Negative [facility] RBC Ql (U) 0 SEEN /hpf 0-5 [facility] Urine clarityOrdered By: Josee uQick on 05-21-2023 Clarity (U) Clear Clear [facility] Urine color determinationOrd ered By: Lucy Quick on 05-21-2023 Color (U) Yellow Yellow [facility] Urine glucose detectionOrder ed By: Lucy Quick on 05-21-2023 Glucose Ql (U) Normal mg/dl Normal [facility] Urine leukocyte esterase det ection by dipstickOrdered By: Lucy Quick on 05-21-2023 Leukocyte esterase Test strip Ql (U) 25 /ul Negative [facility] Urine pHOrdered By: Lucy mcguire on 05-21-2023 pH (U) 6.0 [pH] 5.0 - 8.0 [facility] Urine sediment bacteria coun t by microscopy (number/high power field)Ordered By: Lucy Quick on 05-21-2023 Bacteria LM.HPF (Urine sed) [#/Area] 0 /[HPF] None Seen [facility] Urine specific gravity measu rementOrdered By: Lucy Quick on 05-21-2023 Specific gravity (U) [Rel density] 1.015 1.002-1.030 [facility] Urobilinogen Auto test strip Ql (U)Ordered By: Lucy Quick on 05-21-2023 Urobilinogen Ql (U) Normal mg/dl Normal [facility] Basophil percentageOrdered B y: Lucy Quick on 04-04-2023 Chloride [Moles/Vol] 102 mmol/L 98-107 [facility] Glucose [Mass/Vol] 237 mg/dL 74-106 [facility] Comment on above: Glucose result great er than or equal to 200 mg/dLsuggests DIABETES MELLITUS per A.D.A. criteria. Potassium [Moles/Vol] 4.7 mmol/L 3.5-5.1 [facility] Sodium [Moles/Vol] 137 mmol/L 136-145 [facility] WBC (Bld) [#/Vol] 8.4 10*3/uL 4.4-11.0 [facility] Blood erythrocytes count (nu mber/volume)Ordered By: Lucy Quick on 04-04-2023 RBC (Bld) [#/Vol] 3.41 10*6/uL 4.2-5.4 [facility] Blood hemoglobin measurement (mass/volume)Ordered By: Lucy Quick on 04-04-2023 Hemoglobin (Bld) [Mass/Vol] 11.5 g/dL 12.0-15.0 [facility] Blood platelet mean volumeOr dered By: Lucy Quick on 04-04-2023 Platelet mean volume (Bld) [Entitic vol] 9.7 fL 6.2-12.0 [facility] Determination of erythrocyte mean corpuscular volume (MCV)Ordered By: Lucy Quick on 04-04-2023 MCV (RBC) [Entitic vol] 96.5 fL 81-99 [facility] Hematocrit Auto (Bld) [Volum e fraction]Ordered By: Lucy Quick on 04-04-2023 Hematocrit (Bld) [Volume fraction] 32.9 % 37-47 [facility] Laboratory - Chemistry and C hemistry - challengeOrdered By: Lucy Quick on 04-04-2023 CO2 [Moles/Vol] 27.0 mmol/L 21.0-32.0 [facility] Urea nitrogen/Creatinine [Mass ratio] 29.4 mg/mg 10-20 [facility] Laboratory - Hematology and Cell countsOrdered By: Lucy Quick on 04-04-2023 Erythrocyte distribution width (RBC) [Entitic vol] 47.2 fL 35.1-43.9 [facility] Erythrocyte distribution width (RBC) [Ratio] 15.4 % 11.6-14.6 [facility] MCH (RBC) [Entitic mass] 33.7 pg 27.0-32.0 [facility] MCHC Auto (RBC) [Mass/Vol]Or dered By: Lucy Quick on 04-04-2023 MCHC (RBC) [Mass/Vol] 35.0 g/dL 32-36 [facility] No Panel InformationOrdered By: Lucy Quick on 04-04-2023 Estimated GFR (MDRD) Amer 58 mL/min >60 [facility] Comment on above: GFR Calc Estimated GFR (MDRD) Non-Af Amer 48 mL/min >60 [facility] Comment on above: Non- GFR Calc Platelets bldOrdered By: Josee Quick on 04-04-2023 Platelets (Bld) [#/Vol] 260 10*3/uL 150-450 [facility] Serum or plasma calcium catracho urement (mass/volume)Ordered By: Lucy Quick on 04-04-2023 Calcium [Mass/Vol] 9.2 mg/dL 8.5-10.1 [facility] Serum or plasma creatinine m easurement (mass/volume)Ordered By: Lucy Quick on 04-04-2023 Creatinine [Mass/Vol] 1.19 mg/dL 0.55-1.02 [facility] Comment on above: The validity of the calculated GFR & GFRAA in patients over 70 years has not been determined. Clinical correlation is essential. Serum or plasma urea nitroge n measurement (mass/volume)Ordered By: Lucy Quick on 04-04-2023 Urea nitrogen [Mass/Vol] 35 mg/dL 7-18 [facility] Thin prep Papanicolaou smear with manual screeningOrdered By: Lucy Quick on 04-04-2023 Thin prep Papanicolaou smear with manual screening 8 5-15 [facility] Basophil percentageOrdered B y: Lucy Quick on 03-30-2023 Cholesterol [Mass/Vol] 136 mg/dL <200 [facility] Comment on above: <200 mg/dL Desirable 200-240 mg/dL Borderline >240 mg/dL High Risk Triglyceride [Mass/Vol] 141 mg/dL <199 [facility] Comment on above: The drugs N-Acetylcy steine and Metamizole may falsely depress this assay.Serum Triglycerides Reference Interval Normal <150 mg/dL Borderline high 150 - 199 mg/dL High 200 - 499 mg/dL Very High > or = 500 mg/dL Serum or plasma cholesterol in HDL measurement (mass/volume)Ordered By: Lucy Quick on 03-30-2023 Cholesterol in HDL [Mass/Vol] 41 mg/dL >40 [facility] Comment on above: The drugs N-Acetylcy steine and Metamizole may falsely depress this assay. Reference Range HDL <40 mg/dL Low HDL Cholesterol HDL >or= 60 mg/dL High HDL Cholesterol Serum or plasma cholesterol in VLDL measurement (mass/volume)Ordered By: Lucy Quick on 03-30-2023 Cholesterol in VLDL [Mass/Vol] 28 mg/dL 5-40 [facility] Serum or plasma low density lipoprotein (LDL) cholesterol measurement (mass/volume)Ordered By: Lucy Quick on 03-30-2023 Cholesterol in LDL [Mass/Vol] 67 mg/dL 0-130 [facility] Whole blood hemoglobin A1c/t otal hemoglobin ratio (mass fraction)Ordered By: Lucy Quick on 03-30-2023 HbA1c (Bld) [Mass fraction] 7.3 % 3.8-5.6 [facility] Comment on above: Normal < 5.7 % Predi abetic 5.7 - 6.4 % Diabetic >or= 6.5 % Please note range changes. Basophil percentageOrdered B y: Lucy Quick on 03-20-2023 Chloride [Moles/Vol] 101 mmol/L 98-107 [facility] Glucose [Mass/Vol] 96 mg/dL 74-106 [facility] Potassium [Moles/Vol] 3.9 mmol/L 3.5-5.1 [facility] Sodium [Moles/Vol] 139 mmol/L 136-145 [facility] WBC (Bld) [#/Vol] 7.0 10*3/uL 4.4-11.0 [facility] Blood erythrocytes count (nu mber/volume)Ordered By: Lucy Quick on 03-20-2023 RBC (Bld) [#/Vol] 3.25 10*6/uL 4.2-5.4 [facility] Blood hemoglobin measurement (mass/volume)Ordered By: Lucy Quick on 03-20-2023 Hemoglobin (Bld) [Mass/Vol] 9.1 g/dL 12.0-15.0 [facility] Blood platelet mean volumeOr dered By: Lcuy Quick on 03-20-2023 Platelet mean volume (Bld) [Entitic vol] 8.2 fL 6.2-12.0 [facility] Determination of erythrocyte mean corpuscular volume (MCV)Ordered By: Lucy Quick on 03-20-2023 MCV (RBC) [Entitic vol] 92.3 fL 81-99 [facility] Hematocrit Auto (Bld) [Volum e fraction]Ordered By: Lucy Quick on 03-20-2023 Hematocrit (Bld) [Volume fraction] 30.0 % 37-47 [facility] Laboratory - Chemistry and C hemistry - challengeOrdered By: Lucy Quick on 03-20-2023 CO2 [Moles/Vol] 33.0 mmol/L 21.0-32.0 [facility] Urea nitrogen/Creatinine [Mass ratio] 19.2 mg/mg 10-20 [facility] Laboratory - Hematology and Cell countsOrdered By: Lucy Quick on 03-20-2023 Erythrocyte distribution width (RBC) [Entitic vol] 48.1 fL 35.1-43.9 [facility] Erythrocyte distribution width (RBC) [Ratio] 14.2 % 11.6-14.6 [facility] MCH (RBC) [Entitic mass] 28.0 pg 27.0-32.0 [facility] MCHC Auto (RBC) [Mass/Vol]Or dered By: Lucy Quick on 03-20-2023 MCHC (RBC) [Mass/Vol] 30.3 g/dL 32- [facility] No Panel InformationOrdered By: Lucy Quick on 03-20-2023 Estimated GFR (MDRD) Amer 44 mL/min >60 [facility] Comment on above: GFR Calc Estimated GFR (MDRD) Non-Af Amer 37 mL/min >60 [facility] Comment on above: Non- GFR Calc Platelets bldOrdered By: Josee Quick on 03-20-2023 Platelets (Bld) [#/Vol] 267 10*3/uL 150-450 [facility] Serum or plasma calcium catracho urement (mass/volume)Ordered By: Lucy Quick on 03-20-2023 Calcium [Mass/Vol] 8.9 mg/dL 8.5-10.1 [facility] Serum or plasma creatinine m easurement (mass/volume)Ordered By: Lucy Quick on 03-20-2023 Creatinine [Mass/Vol] 1.51 mg/dL 0.55-1.02 [facility] Comment on above: The validity of the calculated GFR & GFRAA in patients over 70 years has not been determined. Clinical correlation is essential. Serum or plasma urea nitroge n measurement (mass/volume)Ordered By: Lucy Quick on 03-20-2023 Urea nitrogen [Mass/Vol] 29 mg/dL 7-18 [facility] Thin prep Papanicolaou smear with manual screeningOrdered By: Lucy Quick on 03-20-2023 Thin prep Papanicolaou smear with manual screening 5 5-15 [facility] Basophil percentageOrdered B y: Lucy Quick on 03-13-2023 Chloride [Moles/Vol] 103 mmol/L 98-107 [facility] Glucose [Mass/Vol] 153 mg/dL 74-106 [facility] Comment on above: Fasting Glucose resu lt greater than or equal to 126 mg/dL suggests DIABETES MELLITUS per A.D.A. criteria. Potassium [Moles/Vol] 4.1 mmol/L 3.5-5.1 [facility] Sodium [Moles/Vol] 141 mmol/L 136-145 [facility] WBC (Bld) [#/Vol] 7.8 10*3/uL 4.4-11.0 [facility] Blood erythrocytes count (nu mber/volume)Ordered By: Lucy Quick on 03-13-2023 RBC (Bld) [#/Vol] 3.34 10*6/uL 4.2-5.4 [facility] Blood hemoglobin measurement (mass/volume)Ordered By: Lucy Quick on 03-13-2023 Hemoglobin (Bld) [Mass/Vol] 9.2 g/dL 12.0-15.0 [facility] Blood platelet mean volumeOr dered By: Lucy Quick on 03-13-2023 Platelet mean volume (Bld) [Entitic vol] 8.7 fL 6.2-12.0 [facility] Determination of erythrocyte mean corpuscular volume (MCV)Ordered By: Lucy Quick on 03-13-2023 MCV (RBC) [Entitic vol] 94.0 fL 81-99 [facility] Hematocrit Auto (Bld) [Volum e fraction]Ordered By: Lucy Quick on 03-13-2023 Hematocrit (Bld) [Volume fraction] 31.4 % 37-47 [facility] Laboratory - Chemistry and C hemistry - challengeOrdered By: Lucy Quick on 03-13-2023 CO2 [Moles/Vol] 31.0 mmol/L 21.0-32.0 [facility] Urea nitrogen/Creatinine [Mass ratio] 20.1 mg/mg 10-20 [facility] Laboratory - Hematology and Cell countsOrdered By: Lucy Quick on 03-13-2023 Erythrocyte distribution width (RBC) [Entitic vol] 47.4 fL 35.1-43.9 [facility] Erythrocyte distribution width (RBC) [Ratio] 13.8 % 11.6-14.6 [facility] MCH (RBC) [Entitic mass] 27.5 pg 27.0-32.0 [facility] MCHC Auto (RBC) [Mass/Vol]Or dered By: Lucy Quick on 03-13-2023 MCHC (RBC) [Mass/Vol] 29.3 g/dL 32-36 [facility] No Panel InformationOrdered By: Lucy Quick on 03-13-2023 Estimated GFR (MDRD) Amer 45 mL/min >60 [facility] Comment on above: GFR Calc Estimated GFR (MDRD) Non-Af Amer 37 mL/min >60 [facility] Comment on above: Non- GFR Calc Platelets bldOrdered By: Josee Quick on 03-13-2023 Platelets (Bld) [#/Vol] 265 10*3/uL 150-450 [facility] Serum or plasma calcium catracho urement (mass/volume)Ordered By: Lucy Quick on 03-13-2023 Calcium [Mass/Vol] 9.1 mg/dL 8.5-10.1 [facility] Serum or plasma creatinine m easurement (mass/volume)Ordered By: Lucy Quick on 03-13-2023 Creatinine [Mass/Vol] 1.49 mg/dL 0.55-1.02 [facility] Comment on above: The validity of the calculated GFR & GFRAA in patients over 70 years has not been determined. Clinical correlation is essential. Serum or plasma urea nitroge n measurement (mass/volume)Ordered By: Lucy Quick on 03-13-2023 Urea nitrogen [Mass/Vol] 30 mg/dL 7-18 [facility] Thin prep Papanicolaou smear with manual screeningOrdered By: Lucy Quick on 03-13-2023 Thin prep Papanicolaou smear with manual screening 7 5-15 [facility] CNPNon 03-09-2023 CNPN Normal [facility] Basophil percentageOrdered B y: Lucy Quick on 02-27-2023 Cholesterol [Mass/Vol] 173 mg/dL <200 [facility] Comment on above: <200 mg/dL Desirable 200-240 mg/dL Borderline >240 mg/dL High Risk Triglyceride [Mass/Vol] 152 mg/dL <199 [facility] Comment on above: The drugs N-Acetylcy steine and Metamizole may falsely depress this assay.Serum Triglycerides Reference Interval Normal <150 mg/dL Borderline high 150 - 199 mg/dL High 200 - 499 mg/dL Very High > or = 500 mg/dL Gentamicin, troughOrdered By : Lucy Quick on 02-27-2023 Gentamicin trough [Mass/Vol] 4.1 ug/mL <2.0 [facility] Comment on above: Critical Result(s) C alled at: 07:53:13 02/27/2023 by: Batsheva Dao to Bette. Results read back by same.Gentamicin minimal values in excess of 2.0 ug/mL for longer than 10 days are potentially toxic. Peak Gentamicin therapeutic range: 4.0 - 8.0 ug/mL Laboratory - Chemistry and C hemistry - challengeOrdered By: Lucy Quick on 02-27-2023 Cobalamin (Vitamin B12) [Mass/Vol] 444 pg/mL 211-911 [facility] No Panel InformationOrdered By: Lucy Quick on 02-27-2023 Thyroid Stimulating Hormone (TSH) 1.60 uIU/mL 0.358-3.74 [facility] Vitamin D 25-Hydroxy 29.2 ng/mL [facility] Comment on above: Vitamin D 25(OH) Sta tus Range Deficiency <20 ng/mL (50nmol/L) Insufficiency 20 - 30 ng/mL (50 - 75 nmol/L) Sufficiency 30 - 100 ng/mL (75 - 250 nmol/L) Toxicity >100 ng/mL (>250 nmol/L) Serum or plasma cholesterol in HDL measurement (mass/volume)Ordered By: Lucy Quick on 02-27-2023 Cholesterol in HDL [Mass/Vol] 56 mg/dL >40 [facility] Comment on above: The drugs N-Acetylcy steine and Metamizole may falsely depress this assay. Reference Range HDL <40 mg/dL Low HDL Cholesterol HDL >or= 60 mg/dL High HDL Cholesterol Serum or plasma cholesterol in VLDL measurement (mass/volume)Ordered By: Lucy Quick on 02-27-2023 Cholesterol in VLDL [Mass/Vol] 30 mg/dL 5-40 [facility] Serum or plasma folate measu rement (mass/volume)Ordered By: Lucy Quick on 02-27-2023 Folate [Mass/Vol] 10.40 ng/mL 3.1-55.4 [facility] Serum or plasma low density lipoprotein (LDL) cholesterol measurement (mass/volume)Ordered By: Lucy Quick on 02-27-2023 Cholesterol in LDL [Mass/Vol] 87 mg/dL 0-130 [facility] Basophil percentageOrdered B y: Lucy Quick on 02-26-2023 Chloride [Moles/Vol] 106 mmol/L 98-107 [facility] Glucose [Mass/Vol] 216 mg/dL 74-106 [facility] Comment on above: Glucose result great er than or equal to 200 mg/dLsuggests DIABETES MELLITUS per A.D.A. criteria. Potassium [Moles/Vol] 4.1 mmol/L 3.5-5.1 [facility] Sodium [Moles/Vol] 138 mmol/L 136-145 [facility] WBC (Bld) [#/Vol] 8.3 10*3/uL 4.4-11.0 [facility] Blood erythrocytes count (nu mber/volume)Ordered By: Lucy Quick on 02-26-2023 RBC (Bld) [#/Vol] 3.42 10*6/uL 4.2-5.4 [facility] Blood hemoglobin measurement (mass/volume)Ordered By: Lucy Quick on 02-26-2023 Hemoglobin (Bld) [Mass/Vol] 10.1 g/dL 12.0-15.0 [facility] Blood platelet mean volumeOr dered By: Lucy Quick on 02-26-2023 Platelet mean volume (Bld) [Entitic vol] 9.8 fL 6.2-12.0 [facility] Determination of erythrocyte mean corpuscular volume (MCV)Ordered By: Lucy Quick on 02-26-2023 MCV (RBC) [Entitic vol] 95.9 fL 81-99 [facility] Hematocrit Auto (Bld) [Volum e fraction]Ordered By: Lucy Quick on 02-26-2023 Hematocrit (Bld) [Volume fraction] 32.8 % 37-47 [facility] Laboratory - Chemistry and C hemistry - challengeOrdered By: Lucy Quick on 02-26-2023 CO2 [Moles/Vol] 25.0 mmol/L 21.0-32.0 [facility] Urea nitrogen/Creatinine [Mass ratio] 26.9 mg/mg 10-20 [facility] Laboratory - Hematology and Cell countsOrdered By: Lucy Quick on 02-26-2023 Erythrocyte distribution width (RBC) [Entitic vol] 49.3 fL 35.1-43.9 [facility] Erythrocyte distribution width (RBC) [Ratio] 14.1 % 11.6-14.6 [facility] MCH (RBC) [Entitic mass] 29.5 pg 27.0-32.0 [facility] MCHC Auto (RBC) [Mass/Vol]Or dered By: Lucy Quick on 02-26-2023 MCHC (RBC) [Mass/Vol] 30.8 g/dL 32-36 [facility] No Panel InformationOrdered By: Lucy Quick on 02-26-2023 Estimated GFR (MDRD) Amer 86 mL/min >60 [facility] Comment on above: GFR Calc Estimated GFR (MDRD) Non-Af Amer 71 mL/min >60 [facility] Comment on above: Non- GFR Calc Platelets bldOrdered By: Josee Quick on 02-26-2023 Platelets (Bld) [#/Vol] 294 10*3/uL 150-450 [facility] Serum or plasma calcium catracho urement (mass/volume)Ordered By: Lucy Quick on 02-26-2023 Calcium [Mass/Vol] 8.4 mg/dL 8.5-10.1 [facility] Serum or plasma creatinine m easurement (mass/volume)Ordered By: Lucy Quick on 02-26-2023 Creatinine [Mass/Vol] 0.86 mg/dL 0.55-1.02 [facility] Comment on above: The validity of the calculated GFR & GFRAA in patients over 70 years has not been determined. Clinical correlation is essential. Serum or plasma peak gentami shannen level (mass/volume)Ordered By: Lucy Quick on 02-26-2023 Gentamicin peak [Mass/Vol] 4.6 ug/mL 4.0-8.0 [facility] Comment on above: GENTAMICIN <4.0 ug/m l IS SUB-THERAPEUTIC > 10.0 ug/mL IS TOXIC Serum or plasma urea nitroge n measurement (mass/volume)Ordered By: Lucy Quick on 02-26-2023 Urea nitrogen [Mass/Vol] 23 mg/dL 7-18 [facility] Thin prep Papanicolaou smear with manual screeningOrdered By: Lucy Quick on 02-26-2023 Thin prep Papanicolaou smear with manual screening 7 - [facility] Culture, urineOrdered By: Jemal Campos on 02-23-2023 Bacteria identified Cx Nom (U) ESBL Klebsiella pneumoniae pne [facility] CNPNon 02-22-2023 CNPN Normal [facility] Basophil percentageOrdered B y: Lucy Quick on 02-20-2023 Basophil percentage 0-5 SEEN /hpf 0-5 [facility] Bilirubin Test strip Ql (U)O rdered By: Lucy Quick on 02-20-2023 Bilirubin Ql (U) Negative Negative [facility] Calcium oxalate crystals det ection in urine sediment by light microscopyOrdered By: Lucy Quick on 02-20-2023 Calcium oxalate crystals LM Ql (Urine sed) 1+ /hpf [facility] Ketones Test strip Ql (U)Ord ered By: Lucy Quick on 02-20-2023 Ketones Ql (U) 50 mg/dl Negative [facility] Mucus LM Ql (Urine sed)Order ed By: Lucy Quick on 02-20-2023 Mucus Ql (Urine sed) 0 SEEN /hpf [facility] Nitrite Test strip Ql (U)Ord ered By: Lucy Quick on 02-20-2023 Nitrite Ql (U) Negative Negative [facility] Protein Test strip Ql (U)Ord ered By: Lucy Quick on 02-20-2023 Protein Ql (U) 15 mg/dl Negative [facility] Squamous epithelial cells de tection in urine sediment by light microscopyOrdered By: Lucy Quick on 02-20-2023 Epithelial cells.squamous LM Ql (Urine sed) 0-5 SEEN /hpf 5-10 [facility] Urine blood detectionOrdered By: Lucy Quick on 02-20-2023 RBC Ql (U) Negative Negative [facility] RBC Ql (U) 0 SEEN /hpf 0-5 [facility] Urine clarityOrdered By: Pet er Dustin on 02-20-2023 Clarity (U) Clear Clear [facility] Urine color determinationOrd ered By: Lucy Quick on 02-20-2023 Color (U) Yellow Yellow [facility] Urine glucose detectionOrder ed By: Lucy Quick on 02-20-2023 Glucose Ql (U) 50 mg/dl Normal [facility] Urine leukocyte esterase det ection by dipstickOrdered By: Lucy Quick on 02-20-2023 Leukocyte esterase Test strip Ql (U) 25 /ul Negative [facility] Urine pHOrdered By: Lucy mcguire on 02-20-2023 pH (U) 5.0 [pH] 5.0 - 8.0 [facility] Urine sediment bacteria coun t by microscopy (number/high power field)Ordered By: Lucy Quick on 02-20-2023 Bacteria LM.HPF (Urine sed) [#/Area] 1 /[HPF] None Seen [facility] Urine specific gravity measu rementOrdered By: Lucy Quick on 02-20-2023 Specific gravity (U) [Rel density] 1.020 1.002-1.030 [facility] Urobilinogen Auto test strip Ql (U)Ordered By: Lucy Quick on 02-20-2023 Urobilinogen Ql (U) Normal mg/dl Normal [facility] Basophil percentageOrdered B y: Lucy Quick on 02-19-2023 Bilirubin [Mass/Vol] 0.30 mg/dL 0.20-1.00 [facility] Comment on above: For patients on eltr ombopag therapy, use of Dimension Magdalena TBIL is not recommended. Chloride [Moles/Vol] 97 mmol/L 98-107 [facility] Glucose [Mass/Vol] 155 mg/dL 74-106 [facility] Comment on above: Fasting Glucose resu lt greater than or equal to 126 mg/dL suggests DIABETES MELLITUS per A.D.A. criteria. Potassium [Moles/Vol] 3.3 mmol/L 3.5-5.1 [facility] Protein [Mass/Vol] 5.9 g/dL 6.4-8.2 [facility] Sodium [Moles/Vol] 139 mmol/L 136-145 [facility] WBC (Bld) [#/Vol] 7.3 10*3/uL 4.4-11.0 [facility] Blood erythrocytes count (nu mber/volume)Ordered By: Lucy Quick on 02-19-2023 RBC (Bld) [#/Vol] 3.00 10*6/uL 4.2-5.4 [facility] Blood hemoglobin measurement (mass/volume)Ordered By: Lucy Quick on 02-19-2023 Hemoglobin (Bld) [Mass/Vol] 8.4 g/dL 12.0-15.0 [facility] Blood platelet mean volumeOr dered By: Lucy Quick on 02-19-2023 Platelet mean volume (Bld) [Entitic vol] 8.7 fL 6.2-12.0 [facility] Determination of erythrocyte mean corpuscular volume (MCV)Ordered By: Lucy Quick on 02-19-2023 MCV (RBC) [Entitic vol] 98.7 fL 81-99 [facility] Hematocrit Auto (Bld) [Volum e fraction]Ordered By: Lucy Quick on 02-19-2023 Hematocrit (Bld) [Volume fraction] 29.6 % 37-47 [facility] Laboratory - Chemistry and C hemistry - challengeOrdered By: Lucy Quick on 02-19-2023 ALP [Catalytic activity/Vol] 53 U/L 45-117 [facility] ALT [Catalytic activity/Vol] 15 U/L 13-56 [facility] CO2 [Moles/Vol] 36.0 mmol/L 21.0-32.0 [facility] Globulin (S) [Mass/Vol] 3.3 g/dL 2.2-4.2 [facility] Urea nitrogen/Creatinine [Mass ratio] 12.5 mg/mg 10-20 [facility] Laboratory - Hematology and Cell countsOrdered By: Lucy Quick on 02-19-2023 Erythrocyte distribution width (RBC) [Entitic vol] 53.8 fL 35.1-43.9 [facility] Erythrocyte distribution width (RBC) [Ratio] 14.9 % 11.6-14.6 [facility] MCH (RBC) [Entitic mass] 28.0 pg 27.0-32.0 [facility] MCHC Auto (RBC) [Mass/Vol]Or dered By: Lucy Quick on 02-19-2023 MCHC (RBC) [Mass/Vol] 28.4 g/dL 32-36 [facility] No Panel InformationOrdered By: Lucy Quick on 02-19-2023 Estimated GFR (MDRD) Amer 50 mL/min >60 [facility] Comment on above: GFR Calc Estimated GFR (MDRD) Non-Af Amer 41 mL/min >60 [facility] Comment on above: Non- GFR Calc Platelets bldOrdered By: Josee Quick on 02-19-2023 Platelets (Bld) [#/Vol] 353 10*3/uL 150-450 [facility] Serum or plasma albumin catracho urement (mass/volume)Ordered By: Lucy Quick on 02-19-2023 Albumin [Mass/Vol] 2.6 g/dL 3.2-5.0 [facility] Serum or plasma albumin/glob ulin mass ratioOrdered By: Lucy Quick on 02-19-2023 Albumin/Globulin [Mass ratio] 0.8 {ratio} 0.9-2.4 [facility] Serum or plasma calcium catracho urement (mass/volume)Ordered By: Lucy Quick on 02-19-2023 Calcium [Mass/Vol] 8.8 mg/dL 8.5-10.1 [facility] Serum or plasma creatinine m easurement (mass/volume)Ordered By: Lucy Quick on 02-19-2023 Creatinine [Mass/Vol] 1.36 mg/dL 0.55-1.02 [facility] Comment on above: The validity of the calculated GFR & GFRAA in patients over 70 years has not been determined. Clinical correlation is essential. Serum or plasma urea nitroge n measurement (mass/volume)Ordered By: Lucy Quick on 02-19-2023 Urea nitrogen [Mass/Vol] 17 mg/dL 7-18 [facility] Thin prep Papanicolaou smear with manual screeningOrdered By: Lucy Quick on 02-19-2023 Thin prep Papanicolaou smear with manual screening 14 U/L 15-37 [facility] Thin prep Papanicolaou smear with manual screening 6 5-15 [facility] CASE MANAGEMon 02-15-2023 CASE MANAGEM Normal [facility] CNDSon 02-15-2023 CNDS Normal [facility] CONSULT PROGon 02-15-2023 CONSULT PROG Normal [facility] CASE MANAGEMon 02-14-2023 CASE MANAGEM Normal [facility] 25(OH)D3 SerPl-mCncon 2022 25-hydroxyvitamin D3 [Mass/Vol] 9.2 ng/mL Low >=30.0 [facility] Comment on above: Order Comment: Speci men Type: BLOOD SPECIMENOrdering Facility: [facility] Address: [address] [place] [address] Result Comment: Clas sification of 25 [place] Vitamin D status:Deficiency: <= 20.0 ng/ml.Insufficiency: 21.0-29.0 ng/ml.Sufficiency: >= 30.0 ng/ml. Performed By: #### 1 989-3 ####[facility]ORYCLIA [id number] [place] [address] [place] Ammonia Plas-sCncon 02-14-20 23 Ammonia (P) [Moles/Vol] 24 umol/L Normal 11-51 [facility] Comment on above: Order Comment: Speci men Type: BLOOD SPECIMENOrdering Facility: [facility] Address: [address] [place] [address] Performed By: #### 1 6362-6 ####[facility]ATORYCLIA [id number] [place] [address] [place] Bacteria Ur Culton 3 Bacteria identified Cx Nom (U) CULTURE, URINE: No growth (<100 CFU/ml) Normal [facility] Comment on above: Performed By: #### 6 30-4 ####[facility]ATORYCLIA [id number] [address] OF [facility] CASE MGT INIT ASSESon 2022 CASE MGT INIT ASSES Normal [facility] CBC panel Auto (Bld)on 02-13 Erythrocyte distribution width (RBC) [Ratio] 15.6 % High 11.5-15.0 [facility] Comment on above: Order Comment: Speci men Type: BLOOD SPECIMENOrdering Facility: [facility] Address: [address] [place] [address] Performed By: #### 5 8410-2 ####[facility]ATORYCLIA [id number] [address] Hematocrit (Bld) [Volume fraction] 28.4 % Low 36.0-46.0 [facility] Comment on above: Order Comment: Speci men Type: BLOOD SPECIMENOrdering Facility: [facility] Address: [address] [place] [address] Performed By: #### 5 8410-2 ####[facility]ORYCLIA [id number] [address] Hemoglobin (Bld) [Mass/Vol] 8.2 g/dL Low 11.5-15.5 [facility] Comment on above: Order Comment: Speci men Type: BLOOD SPECIMENOrdering Facility: [facility] Address: [address] [place] [address] Performed By: #### 5 8410-2 ####[facility]ATORYCLIA [id number] [address] STATES [facility] MCH (RBC) [Entitic mass] 28.0 pg Normal 26.0-34.0 [facility] Comment on above: Order Comment: Speci men Type: BLOOD SPECIMENOrdering Facility: [facility] Address: [address] [place] [address] Performed By: #### 5 8410-2 ####[facility]ATORYCLIA [id number] [address] [place] MCHC (RBC) [Mass/Vol] 28.9 g/dL Low 30.5-36.0 [facility] Comment on above: Order Comment: Speci men Type: BLOOD SPECIMENOrdering Facility: [facility] Address: [address] [place] [address] Performed By: #### 5 8410-2 ####[facility]ATORYCLIA [id number] [address] [place] MCV (RBC) [Entitic vol] 96.9 fL Normal 80.0-100.0 [facility] Comment on above: Order Comment: Speci men Type: BLOOD SPECIMENOrdering Facility: [facility] Address: [address] [place] [address] Performed By: #### 5 8410-2 ####[facility]ATORYCLIA [id number] [address] [place] Nucleated RBC (Bld) [#/Vol] 0.02 10*3/uL High <0.01 [facility] Comment on above: Order Comment: Speci men Type: BLOOD SPECIMENOrdering Facility: [facility] Address: [address] [place] [address] Performed By: #### 5 8410-2 ####[facility]ATORYCLIA [id number] [address] [place] Platelet mean volume (Bld) [Entitic vol] 8.5 fL Low 9.0-12.7 [facility] Comment on above: Order Comment: Speci men Type: BLOOD SPECIMENOrdering Facility: [facility] Address: [address] [place] [address] Performed By: #### 5 8410-2 ####[facility]ATORYCLIA [id number] [address] [place] Platelets (Bld) [#/Vol] 287 10*3/uL Normal 150-400 [facility] Comment on above: Order Comment: Speci men Type: BLOOD SPECIMENOrdering Facility: [facility] Address: [address] [address] Performed By: #### 5 8410-2 ####[facility]ATORYCLIA [id number] [address] OF [facility] RBC (Bld) [#/Vol] 2.93 10*6/uL Low 3.90-5.20 [facility] Comment on above: Order Comment: Speci men Type: BLOOD SPECIMENOrdering Facility: [facility] Address: [address] [address] Performed By: #### 5 8410-2 ####[facility]ATORYCLIA [id number] [address] WBC (Bld) [#/Vol] 7.53 10*3/uL Normal 3.70-11.00 [facility] Comment on above: Order Comment: Speci men Type: BLOOD SPECIMENOrdering Facility: [facility] Address: [address] [address] Performed By: #### 5 8410-2 ####[facility]ATORYCLIA [id number] [address] CONSULT PROGon 02-13-2023 CONSULT PROG Normal [facility] CONSULT PROG Normal [facility] Comp Metab 2000 Pnl SerPlon 02-13-2023 Chloride [Moles/Vol] 98 mmol/L Low 102-109 [facility] Comment on above: Order Comment: Speci men Type: BLOOD SPECIMENOrdering Facility: [facility] Address: [address] [place] [address] Performed By: #### 2 4323-8, 2132-9 ####[facility]ATORYCLIA [id number] [address] Order Comment: Speci men Type: VENOUS BLOOD SPECIMENOrdering Facility: [facility] Address: [address] [place] [address] Performed By: #### 2 4344-4 ####[facility]ATORYCLIA [id number] [address] [place] Comprehensive metabolic 2000 panelon 02-13-2023 Albumin [Mass/Vol] 3.3 g/dL Low 3.9-4.9 [facility] Comment on above: Order Comment: Speci men Type: BLOOD SPECIMENOrdering Facility: [facility] Address: [address] [place] [address] Performed By: #### 2 4328, 2132-06 ####[facility]ATORYCLIA [id number] [address] [place] ALP [Catalytic activity/Vol] 65 U/L Normal 34-123 [facility] Comment on above: Order Comment: Speci men Type: BLOOD SPECIMENOrdering Facility: [facility] Address: [address] [place] [address] Performed By: #### 2 4328, 2132-06 ####[facility]ATORYCLIA [id number] [address] STATES [facility] ALT With P-5'-P [Catalytic activity/Vol] 8 U/L Normal 7-38 [facility] Comment on above: Order Comment: Speci men Type: BLOOD SPECIMENOrdering Facility: [facility] Address: [address] [place] [address] Performed By: #### 2 43201-03, 2132-06 ####[facility]ATORYCLIA [id number] [address] [place] [facility] Anion gap [Moles/Vol] 8 mmol/L Low 9-18 [facility] Comment on above: Order Comment: Speci men Type: BLOOD SPECIMENOrdering Facility: [facility] Address: [address] [place] [address] Performed By: #### 2 43201-03, 2132-06 ####[facility]ATORYCLIA [id number] [address] [place] AST With P-5'-P [Catalytic activity/Vol] 12 U/L Low 13-35 [facility] Comment on above: Order Comment: Speci men Type: BLOOD SPECIMENOrdering Facility: [facility] Address: [address] [address] Performed By: #### 2 4323-05, 2132-06 ####[facility]ORATORYCLIA [id number] [address] [place] Bilirubin [Mass/Vol] 0.3 mg/dL Normal 0.2-1.3 [facility] Comment on above: Order Comment: Speci men Type: BLOOD SPECIMENOrdering Facility: [facility] Address: [address] [place] [address] Performed By: #### 2 4323-05, 2132-06 ####[facility]ATORYCLIA [id number] [place] [address] [place] Calcium [Mass/Vol] 8.7 mg/dL Normal 8.5-10.2 [facility] Comment on above: Order Comment: Speci men Type: BLOOD SPECIMENOrdering Facility: [facility] Address: [address] [place] [address] Performed By: #### 2 4323-05, 2132-06 ####[facility]ATORYCLIA [id number] [place] [address] [place] CO2 [Moles/Vol] 38 mmol/L High 22-30 [facility] Comment on above: Order Comment: Speci men Type: BLOOD SPECIMENOrdering Facility: [facility] Address: [address] [place] [address] Performed By: #### 2 4323-05, 2132-06 ####[facility]ATORYCLIA [id number] [place] [address] [place] Creatinine [Mass/Vol] 1.37 mg/dL High 0.58-0.96 [facility] Comment on above: Order Comment: Speci men Type: BLOOD SPECIMENOrdering Facility: [facility] Address: [address] [place] [address] Performed By: #### 2 4323-05, 2132-06 ####[facility]ORATORYCLIA [id number] [place] [address] [place] ESTIMATED GLOMERULAR FILTRATION RATE 43 mL/min/1.73m??? Low >=60 [facility] Comment on above: Order Comment: Scott seals Type: BLOOD SPECIMENOrdering Facility: [facility] Address: [address] [place] [address] Result Comment: Petra mated Glomerular Filtration Rate [...] GFR. Performed By: #### 2 4323-8, 2132-06 ####[facility]ATORYCLIA [id number] [place] [address] [place] Glucose [Mass/Vol] 118 mg/dL High 74-99 [facility] Comment on above: Order Comment: Scott seals Type: BLOOD SPECIMENOrdering Facility: [facility] Address: [address] [place] [address] Result Comment: The [place] [employer] (ADA) provides guidance for cutoff [...] Standards of Medical Care in Diabetes 2016, [place] [employer]. Diabetes Care. 2016.39(Suppl 1). Performed By: #### 2 4323-8, 2132-06 ####[facility]ORATORYCLIA [id number] [place] [address] [place] Potassium [Moles/Vol] 4.1 mmol/L Normal 3.7-5.1 [facility] Comment on above: Order Comment: Speci men Type: BLOOD SPECIMENOrdering Facility: [facility] Address: [address] [place] [address] Performed By: #### 2 4323-05, 2132-06 ####[facility]ATORYCLIA [id number] [place] [address] [place] Protein [Mass/Vol] 5.2 g/dL Low 6.3-8.0 [facility] Comment on above: Order Comment: Speci men Type: BLOOD SPECIMENOrdering Facility: [facility] Address: [address] [place] [address] Performed By: #### 2 4323-05, 2132-06 ####[facility]ATORYCLIA [id number] [place] [address] [place] Sodium [Moles/Vol] 144 mmol/L Normal 136-144 [facility] Comment on above: Order Comment: Speci men Type: BLOOD SPECIMENOrdering Facility: [facility] Address: [address] [place] [address] Performed By: #### 2 4323-05, 2132-06 ####[facility]ATORYCLIA [id number] [place] [address] [place] Urea nitrogen [Mass/Vol] 21 mg/dL Normal 7-21 [facility] Comment on above: Order Comment: Speci men Type: BLOOD SPECIMENOrdering Facility: [facility] Address: [address] [place] [address] Performed By: #### 2 4323-05, 2132-06 ####[facility]ATORYCLIA [id number] [place] [address] [place] Gas and Carbon monoxide pane l (BldV)on 02-13-2023 Base excess Calc (BldV) [Moles/Vol] 10 mmol/L High 0-2 [facility] Comment on above: Order Comment: Speci men Type: VENOUS BLOOD SPECIMENOrdering Facility: [facility] Address: [address] [place] [address] Performed By: #### 2 4344-4 ####[facility] LABORATORYCLIA [id number] [address] Body temperature 98.42 [degF] Normal [facility] Comment on above: Order Comment: Speci men Type: VENOUS BLOOD SPECIMENOrdering Facility: [facility] Address: [address] [place] [address] Performed By: #### 2 4344-4 ####[facility]ORATORYCLIA [id number] [address] Calcium.ionized (BldV) [Mass/Vol] 1.16 mmol/L Normal 1.08-1.30 [facility] Comment on above: Order Comment: Speci men Type: VENOUS BLOOD SPECIMENOrdering Facility: [facility] Address: [address] [place] [address] Performed By: #### 2 4344-4 ####[facility]ORATORYCLIA [id number] [address] Calcium.ionized adjusted to pH 7.4 (BldA) [Moles/Vol] 1.14 mmol/L Normal 1.08-1.30 [facility] Comment on above: Order Comment: Speci men Type: VENOUS BLOOD SPECIMENOrdering Facility: [facility] Address: [address] [place] [address] Performed By: #### 2 4344-4 ####[facility]ORATORYCLIA [id number] [address] [place] Carboxyhemoglobin (BldV) [Mass fraction] 2.3 % High 0.0-2.0 [facility] Comment on above: Order Comment: Speci men Type: VENOUS BLOOD SPECIMENOrdering Facility: [facility] Address: [address] [place] [address] Result Comment: Carb oxyhemoglobin Reference Range for Smokers: 2.0-8.0% Performed By: #### 2 4344-4 ####[facility]ORATORYCLIA [id number] [address] CO2 (BldV) [Partial pressure] 65 mm[Hg] High 42-55 [facility] Comment on above: Order Comment: Speci men Type: VENOUS BLOOD SPECIMENOrdering Facility: [facility] Address: [address] [place] [address] Performed By: #### 2 4344-4 ####[facility] LABORATORYCLIA [id number] [place] [address] [place] CO2 [Moles/Vol] 34 mmol/L High 25-29 [facility] Comment on above: Order Comment: Speci men Type: VENOUS BLOOD SPECIMENOrdering Facility: [facility] Address: [address] [place] [address] Performed By: #### 2 4344-4 ####[facility] LABORATORYCLIA [id number] [address] [place] CO2 adjusted to patient's actual temperature (BldV) [Partial pressure] 65 mmHg High 42-55 [facility] Comment on above: Order Comment: Speci men Type: VENOUS BLOOD SPECIMENOrdering Facility: [facility] Address: [address] [address] Performed By: #### 2 4344-4 ####[facility] LABORATORYCLIA [id number] [place] [address] [place] Glucose [Mass/Vol] 116 mg/dL High 60-105 [facility] Comment on above: Order Comment: Speci men Type: VENOUS BLOOD SPECIMENOrdering Facility: [facility] Address: [address] [address] Performed By: #### 2 4344-4 ####[facility]ORATORYCLIA [id number] [place] [address] [place] HCO3 (Bld) [Moles/Vol] 36 mmol/L High 24-28 [facility] Comment on above: Order Comment: Speci men Type: VENOUS BLOOD SPECIMENOrdering Facility: [facility] Address: [address] [address] Performed By: #### 2 4344-4 ####[facility]ORATORYCLIA [id number] [address] OF [facility] Hematocrit (Bld) [Volume fraction] 27.0 % Low 36.0-46.0 [facility] Comment on above: Order Comment: Speci men Type: VENOUS BLOOD SPECIMENOrdering Facility: [facility] Address: [address] [address] Performed By: #### 2 4344-4 ####[facility] LABORATORYCLIA [id number] [address] STATES OF [facility] Hemoglobin (Bld) [Mass/Vol] 8.7 g/dL Low 11.5-15.5 [facility] Comment on above: Order Comment: Speci men Type: VENOUS BLOOD SPECIMENOrdering Facility: [facility] Address: [address] [place] [address] Performed By: #### 2 4344-4 ####[facility]ORATORYCLIA [id number] [address] Lactate [Moles/Vol] 0.7 mmol/L Normal 0.5-2.2 [facility] Comment on above: Order Comment: Speci men Type: VENOUS BLOOD SPECIMENOrdering Facility: [facility] Address: [address] [place] [address] Performed By: #### 2 4344-4 ####[facility]ATORYCLIA [id number] [address] [place] Methemoglobin (Bld) [Mass fraction] 1.5 % Normal 0.0-1.5 [facility] Comment on above: Order Comment: Speci men Type: VENOUS BLOOD SPECIMENOrdering Facility: [facility] Address: [address] [place] [address] Performed By: #### 2 4344-4 ####[facility] LABORATORYCLIA [id number] [address] O2 THERAPY NC = Nasal Cannula Normal [facility] Comment on above: Order Comment: Speci men Type: VENOUS BLOOD SPECIMENOrdering Facility: [facility] Address: [address] [place] [address] Result Comment: 4 Performed By: #### 2 4344-4 ####[facility] LABORATORYCLIA [id number] [address] [place] Oxygen (BldV) [Partial pressure] 145 mm[Hg] High 35-45 [facility] Comment on above: Order Comment: Speci men Type: VENOUS BLOOD SPECIMENOrdering Facility: [facility] Address: [address] [place] [address] Performed By: #### 2 4344-4 ####[facility] LABORATORYCLIA [id number] [address] [place] Oxygen adjusted to patient's actual temperature (BldV) [Partial pressure] 145 mmHg High 35-45 [facility] Comment on above: Order Comment: Speci men Type: VENOUS BLOOD SPECIMENOrdering Facility: [facility] Address: [address] [place] [address] Performed By: #### 2 4344-4 ####[facility] LABORATORYCLIA [id number] [address] [place] Oxygen saturation in Venous blood 99 % High 60-85 [facility] Comment on above: Order Comment: Speci men Type: VENOUS BLOOD SPECIMENOrdering Facility: [facility] Address: [address] [place] [address] Performed By: #### 2 4344-4 ####[facility]ORATORYCLIA [id number] [address] [place] Oxyhemoglobin (BldV) [Mass fraction] 95 % High 60-85 [facility] Comment on above: Order Comment: Speci men Type: VENOUS BLOOD SPECIMENOrdering Facility: [facility] Address: [address] [place] [address] Performed By: #### 2 4344-4 ####[facility]ORATORYCLIA [id number] [address] [id number] [place] pH (BldV) 7.36 [pH] Normal 7.32-7.42 [facility] Comment on above: Order Comment: Speci men Type: VENOUS BLOOD SPECIMENOrdering Facility: [facility] Address: [address] [place] [address] Performed By: #### 2 4344-4 ####[facility] LABORATORYCLIA [id number] [address] pH adjusted to patient's actual temperature (BldV) 7.36 Normal 7.32-7.42 [facility] Comment on above: Order Comment: Speci men Type: VENOUS BLOOD SPECIMENOrdering Facility: [facility] Address: [address] [place] [address] Performed By: #### 2 4344-4 ####[facility] LABORATORYCLIA [id number] [address] [place] Potassium [Moles/Vol] 3.9 mmol/L Normal 3.5-5.0 [facility] Comment on above: Order Comment: Speci men Type: VENOUS BLOOD SPECIMENOrdering Facility: [facility] Address: [address] [place] [address] Performed By: #### 2 4344-4 ####[facility]ORATORYCLIA [id number] [address] [place] Sodium [Moles/Vol] 143 mmol/L Normal 136-144 [facility] Comment on above: Order Comment: Speci men Type: VENOUS BLOOD SPECIMENOrdering Facility: [facility] Address: [address] [place] [address] Performed By: #### 2 4344-4 ####[facility]ORATORYCLIA [id number] [address] [place] HbA1c (Bld)on 02-13-2023 Average glucose Estimated from glycated hemoglobin (Bld) [Mass/Vol] 151 mg/dL Normal [facility] Comment on above: Order Comment: Speci men Type: BLOOD SPECIMENOrdering Facility: [facility] Address: [address] [place] [address] Result Comment: eAG: (Estimated average glucose) is a calculated value from HgbA1c and is lead generation representative of the average blood glucose level in the last 2-3 month period. Performed By: #### 5 5454-3 ####[facility]ATORYCLIA [id number] [address] HbA1c (Bld) [Mass fraction] 6.9 % High 4.3-5.6 [facility] Comment on above: Order Comment: Speci men Type: BLOOD SPECIMENOrdering Facility: [facility] Address: [address] [address] Result Comment: Amer [place] Diabetes Association guidelines indicate that patients with HgbA1c in the range 5.7-6.4% are at increased risk for development of diabetes, and intervention by lifestyle modification may be beneficial. HgbA1c greater or equal to 6.5% is considered diagnostic of diabetes. Performed By: #### 5 5454-3 ####[facility]ORATORYCLIA [id number] [address] OF [facility] Lipid 1996 panelon 3 Cholesterol [Mass/Vol] 118 mg/dL Normal <200 [facility] Comment on above: Order Comment: Speci bozena Type: BLOOD SPECIMENOrdering Facility: [facility] Address: [address] [address] Result Comment: <200 mg/dL, Desirable 200-239 mg/dL, Borderline high>239 mg/dL, High Performed By: #### 1 9123-9, 28410-9, 277-, 6-3 ####[facility]ORATORYCLIA [id number] [address] Cholesterol in HDL [Mass/Vol] 39 mg/dL Low >39 [facility] Comment on above: Order Comment: [facility] Type: BLOOD SPECIMENOrdering Facility: [facility] Address: [address] [address] Result Comment: 40-5 9 mg/dL, Acceptable>59 mg/dL, High: Negative risk factor for coronary heart disease<40 mg/dL, Low: Positive risk factor for coronary heart disease Performed By: #### 1 9123-9, 81266-5, 2777-1, 3016-3 ####[facility]ORATORYCLIA [id number] [place], [place] [address] [place] [address] OF [facility] Cholesterol in LDL [Mass/Vol] 40 mg/dL Normal <100 [facility] Comment on above: Order Comment: Luhi men Type: BLOOD SPECIMENOrdering Facility: [facility] Address: [address] [place] [address] Result Comment: <100 mg/dL, Optimal 100-129 mg/dL, Near optimal/above optimal 130-159 mg/dL, Borderline high 160-189 mg/dL, High>189 mg/dL, Very highSecondary prevention optimal LDL Cholesterol levels are recommended to be < 70 mg/dL Performed By: #### 1 9123-9, 55296-5, 277-, 3015-3 ####[facility]ITALCL[facility] [id number] [address] Cholesterol in LDL/Cholesterol in HDL [Mass ratio] 1.03 {ratio} Normal <2.54 [facility] Comment on above: Order Comment: Spectalia men Type: BLOOD SPECIMENOrdering Facility: [facility] Address: [address] [place] [address] Result Comment: Refe rence:1. National Cholesterol Education Program ATP III Guideline At-A-Glance Quick Desk Reference: National Heart, Lung, and Blood [place]. National Institutes of Health. 2001: NIH Publication No. 01-3305.2. An International Atherosclerosis Society position paper: global recommendations for the management of dyslipidemia: executive summary, Atherosclerosis. 2014: 232(2):410-413. Performed By: #### 1 9123-9, 95615-8, 277-, 3015-3 ####[facility] LABORATORYCLIA [id number] [address] [id number] [facility] Cholesterol in VLDL [Mass/Vol] 39 mg/dL High <30 [facility] Comment on above: Order Comment: Scott bozena Type: BLOOD SPECIMENOrdering Facility: [facility] Address: [address] [place] [address] Performed By: #### 1 9123-9, 66543-5, 277-1, 6-3 ####[facility] LABORATORYCLIA [id number] [address] [place] Cholesterol non HDL [Mass/Vol] 79 mg/dL Normal <130 [facility] Comment on above: Order Comment: Speci men Type: BLOOD SPECIMENOrdering Facility: [facility] Address: [address] [address] Result Comment: <130 mg/dL, Optimal 130-159 mg/dL, Near optimal/above optimal 160-189 mg/dL, Borderline high 190-219 mg/dL, High>219 mg/dL, Very highSecondary prevention optimal non HDL Cholesterol levels are recommended to be <100 mg/dL Performed By: #### 1 9123-9, 58489-9, 277-, 3015-3 ####[facility]ORATORYCLIA [id number] [address] [place] Cholesterol.total/Isatu sterol in HDL [Mass ratio] 3.03 {ratio} Normal <5.10 [facility] Comment on above: Order Comment: Speci men Type: BLOOD SPECIMENOrdering Facility: [facility] Address: [address] [place] [address] Performed By: #### 1 9123-9, 37927-2, 2776-, 3015-3 ####[facility] LABORATORYCLIA [id number] [address] [place] FASTING TIME 12 hrs Normal [facility] Comment on above: Order Comment: Speci men Type: BLOOD SPECIMENOrdering Facility: [facility] Address: [address] [address] Performed By: #### 1 9123-9, 47040-3, 2776-, 3015-3 ####[facility]ORATORYCLIA [id number] [address] OF [facility] Triglyceride [Mass/Vol] 194 mg/dL High <150 [facility] Comment on above: Order Comment: Speci men Type: BLOOD SPECIMENOrdering Facility: [facility] Address: [address] [address] Result Comment: <150 mg/dL, Normal 150-199 mg/dL, Borderline high 200-499 mg/dL, High>499 mg/dL, Very high Performed By: #### 1 9123-9, 78749-7, 2776-1, 3015-3 ####[facility]ORATORYCLIA [id number] [place], [place] [id number] [place] [address] [place] OF [facility] Magnesium SerPl-mCncon 02-13 Magnesium [Mass/Vol] 1.7 mg/dL Normal 1.7-2.3 [facility] Comment on above: Order Comment: Speci men Type: BLOOD SPECIMENOrdering Facility: [facility] Address: [address] [place] [address] Performed By: #### 1 9123-9, 20771-0, 2776-, 3015-3 ####[facility]ORATORYCLIA [id number] [address] Phosphate SerPl-mCncon 02-13 Phosphate [Mass/Vol] 3.3 mg/dL Normal 2.7-4.8 [facility] Comment on above: Order Comment: Speci men Type: BLOOD SPECIMENOrdering Facility: [facility] Address: [address] [place] [address] Performed By: #### 1 9123-9, 02250-4, 2776-1, 3015-3 ####[facility]ORATORYCLIA [id number] [address] [place] TSH SerPl-aCncon 02-13-2023 TSH Qn 2.810 m[IU]/L Normal 0.270-4.200 [facility] Comment on above: Order Comment: Speci men Type: BLOOD SPECIMENOrdering Facility: [facility] Address: [address] [place] [address] Performed By: #### 1 9123-9, 89260-0, 2776-1, 6-3 ####[facility]ORATORYCLIA [id number] [place] [address] [place] Vit B12 SerPl-mCncon 023 Cobalamin (Vitamin B12) [Mass/Vol] 565 pg/mL Normal 232-1245 [facility] Comment on above: Order Comment: Speci men Type: BLOOD SPECIMENOrdering Facility: [facility] Address: [address] [place] [address] Performed By: #### 2 4323-8, 2132-9 ####[facility]ORATORYCLIA [id number] [address] [place] ALLIED HEALTHon 02-12-2023 ALLIED HEALTH Normal [facility] CBC panel Auto (Bld)on 02-12 Erythrocyte distribution width (RBC) [Ratio] 15.7 % High 11.5-15.0 [facility] Comment on above: Order Comment: Speci men Type: BLOOD SPECIMENOrdering Facility: [facility] Address: [address] [place] [address] Performed By: #### 5 8410-2 ####[facility]ORATORYCLIA [id number] [address] STATES OF [facility] Hematocrit (Bld) [Volume fraction] 31.0 % Low 36.0-46.0 [facility] Comment on above: Order Comment: Speci men Type: BLOOD SPECIMENOrdering Facility: [facility] Address: [address] [place] [address] Performed By: #### 5 8410-2 ####[facility]ATORYCLIA [id number] [address] [place] Hemoglobin (Bld) [Mass/Vol] 9.0 g/dL Low 11.5-15.5 [facility] Comment on above: Order Comment: Speci men Type: BLOOD SPECIMENOrdering Facility: [facility] Address: [address] [place] [address] Performed By: #### 5 8410-2 ####[facility]ORATORYCLIA [id number] [address] [place] MCH (RBC) [Entitic mass] 28.6 pg Normal 26.0-34.0 [facility] Comment on above: Order Comment: Speci men Type: BLOOD SPECIMENOrdering Facility: [facility] Address: [address] [place] [address] Performed By: #### 5 8410-2 ####[facility]ORATORYCLIA [id number] [address] MCHC (RBC) [Mass/Vol] 29.0 g/dL Low 30.5-36.0 [facility] Comment on above: Order Comment: Speci men Type: BLOOD SPECIMENOrdering Facility: [facility] Address: [address] [place] [address] Performed By: #### 5 8410-2 ####[facility] LABORATORYCLIA [id number] [address] [place] MCV (RBC) [Entitic vol] 98.4 fL Normal 80.0-100.0 [facility] Comment on above: Order Comment: Speci men Type: BLOOD SPECIMENOrdering Facility: [facility] Address: [address] [place] [address] Performed By: #### 5 8410-2 ####[facility]ORATORYCLIA [id number] [address] Nucleated RBC (Bld) [#/Vol] 10*3/uL Normal <0.01 [facility] Comment on above: Order Comment: Speci men Type: BLOOD SPECIMENOrdering Facility: [facility] Address: [address] [place] [address] Performed By: #### 5 8410-2 ####[facility]ORATORYCLIA [id number] [address] STATES [facility] Platelet mean volume (Bld) [Entitic vol] 8.4 fL Low 9.0-12.7 [facility] Comment on above: Order Comment: Speci men Type: BLOOD SPECIMENOrdering Facility: [facility] Address: [address] [place] [address] Performed By: #### 5 8410-2 ####[facility]ORATORYCLIA [id number] [place] [address] [place] Platelets (Bld) [#/Vol] 305 10*3/uL Normal 150-400 [facility] Comment on above: Order Comment: Speci men Type: BLOOD SPECIMENOrdering Facility: [facility] Address: [address] [place] [address] Performed By: #### 5 8410-2 ####[facility]ORATORYCLIA [id number] [place] [address] [place] RBC (Bld) [#/Vol] 3.15 10*6/uL Low 3.90-5.20 [facility] Comment on above: Order Comment: Speci men Type: BLOOD SPECIMENOrdering Facility: [facility] Address: [address] [place] [address] Performed By: #### 5 8410-2 ####[facility]ORATORYCLIA [id number] [address] STATES OF [facility] WBC (Bld) [#/Vol] 7.57 10*3/uL Normal 3.70-11.00 [facility] Comment on above: Order Comment: Speci men Type: BLOOD SPECIMENOrdering Facility: [facility] Address: [address] [place] [address] Performed By: #### 5 8410-2 ####[facility]ORATORYCLIA [id number] [address] [place] CONSULTon 02-12-2023 CONSULT Normal [facility] Gas and Carbon monoxide pane l (BldV)on 02-12-2023 Base excess Calc (BldV) [Moles/Vol] 8 mmol/L High 0-2 [facility] Comment on above: Order Comment: Speci men Type: VENOUS BLOOD SPECIMENOrdering Facility: [facility] Address: [address] [place] [address] Performed By: #### 2 4344-4 ####[facility]ORATORYCLIA [id number] [address] [place] Body temperature 98.6 [degF] Normal [facility] Comment on above: Order Comment: Speci men Type: VENOUS BLOOD SPECIMENOrdering Facility: [facility] Address: [address] [place] [address] Performed By: #### 2 4344-4 ####[facility]ORATORYCLIA [id number] [address] OF [facility] Calcium.ionized (BldV) [Mass/Vol] 1.11 mmol/L Normal 1.08-1.30 [facility] Comment on above: Order Comment: Speci men Type: VENOUS BLOOD SPECIMENOrdering Facility: [facility] Address: [address] [place] [address] Performed By: #### 2 4344-4 ####[facility]ORATORYCLIA [id number] [address] OF [facility] Calcium.ionized adjusted to pH 7.4 (BldA) [Moles/Vol] 1.08 mmol/L Normal 1.08-1.30 [facility] Comment on above: Order Comment: Speci men Type: VENOUS BLOOD SPECIMENOrdering Facility: [facility] Address: [address] [place] [address] Performed By: #### 2 4344-4 ####[facility]ORATORYCLIA [id number] [address] [place] Carboxyhemoglobin (BldV) [Mass fraction] 2.5 % High 0.0-2.0 [facility] Comment on above: Order Comment: Speci men Type: VENOUS BLOOD SPECIMENOrdering Facility: [facility] Address: [address] [place] [address] Result Comment: Carb oxyhemoglobin Reference Range for Smokers: 2.0-8.0% Performed By: #### 2 4344-4 ####[facility]ORATORYCLIA [id number] [address] OF [facility] Chloride [Moles/Vol] 98 mmol/L Low 102-109 [facility] Comment on above: Order Comment: Speci men Type: VENOUS BLOOD SPECIMENOrdering Facility: [facility] Address: [address] [address] Performed By: #### 2 4344-4 ####[facility] LABORATORYCLIA [id number] [address] [place] CO2 (BldV) [Partial pressure] 64 mm[Hg] High 42-55 [facility] Comment on above: Order Comment: Speci men Type: VENOUS BLOOD SPECIMENOrdering Facility: [facility] Address: [address] [address] Performed By: #### 2 4344-4 ####[facility]ORATORYCLIA [id number] [address] [place] CO2 [Moles/Vol] 33 mmol/L High 25-29 [facility] Comment on above: Order Comment: Speci men Type: VENOUS BLOOD SPECIMENOrdering Facility: [facility] Address: [address] [place] [address] Performed By: #### 2 4344-4 ####[facility]ORATORYCLIA [id number] [address] [place] Glucose [Mass/Vol] 178 mg/dL High 60-105 [facility] Comment on above: Order Comment: Speci men Type: VENOUS BLOOD SPECIMENOrdering Facility: [facility] Address: [address] [place] [address] Performed By: #### 2 4344-4 ####[facility]ORATORYCLIA [id number] [place] [address] [place] HCO3 (Bld) [Moles/Vol] 35 mmol/L High 24-28 [facility] Comment on above: Order Comment: Speci men Type: VENOUS BLOOD SPECIMENOrdering Facility: [facility] Address: [address] [place] [address] Performed By: #### 2 4344-4 ####[facility] LABORATORYCLIA [id number] [place] [address] [place] Hematocrit (Bld) [Volume fraction] 30.6 % Low 36.0-46.0 [facility] Comment on above: Order Comment: Speci men Type: VENOUS BLOOD SPECIMENOrdering Facility: [facility] Address: [address] [place] [address] Performed By: #### 2 4344-4 ####[facility] LABORATORYCLIA [id number] [address] [place] OF [facility] Hemoglobin (Bld) [Mass/Vol] 9.9 g/dL Low 11.5-15.5 [facility] Comment on above: Order Comment: Speci men Type: VENOUS BLOOD SPECIMENOrdering Facility: [facility] Address: [address] [place] [address] Performed By: #### 2 4344-4 ####[facility]ORATORYCLIA [id number] [address] Lactate [Moles/Vol] 1.0 mmol/L Normal 0.5-2.2 [facility] Comment on above: Order Comment: Speci men Type: VENOUS BLOOD SPECIMENOrdering Facility: [facility] Address: [address] [place] [address] Performed By: #### 2 4344-4 ####[facility]ATORYCLIA [id number] [address] Methemoglobin (Bld) [Mass fraction] 1.4 % Normal 0.0-1.5 [facility] Comment on above: Order Comment: Speci men Type: VENOUS BLOOD SPECIMENOrdering Facility: [facility] Address: [address] [place] [address] Performed By: #### 2 4344-4 ####[facility]ORATORYCLIA [id number] [address] O2 THERAPY NC = Nasal Cannula Normal [facility] Comment on above: Order Comment: Speci men Type: VENOUS BLOOD SPECIMENOrdering Facility: [facility] Address: [address] [place] [address] Result Comment: 4 L Performed By: #### 2 4344-4 ####[facility]ORATORYCLIA [id number] [place] [address] [place] Oxygen (BldV) [Partial pressure] 184 mm[Hg] High 35-45 [facility] Comment on above: Order Comment: Speci men Type: VENOUS BLOOD SPECIMENOrdering Facility: [facility] Address: [address] [place] [address] Performed By: #### 2 4344-4 ####[facility]ORATORYCLIA [id number] [address] [place] Oxygen saturation in Venous blood 99 % High 60-85 [facility] Comment on above: Order Comment: Speci men Type: VENOUS BLOOD SPECIMENOrdering Facility: [facility] Address: [address] [place] [address] Performed By: #### 2 4344-4 ####[facility]ORATORYCLIA [id number] [address] [place] Oxyhemoglobin (BldV) [Mass fraction] 95 % High 60-85 [facility] Comment on above: Order Comment: Speci men Type: VENOUS BLOOD SPECIMENOrdering Facility: [facility] Address: [address] [place] [address] Performed By: #### 2 4344-4 ####[facility]ATORYCLIA [id number] [address] [place] pH (BldV) 7.35 [pH] Normal 7.32-7.42 [facility] Comment on above: Order Comment: Speci men Type: VENOUS BLOOD SPECIMENOrdering Facility: [facility] Address: [address] [address] Performed By: #### 2 4344-4 ####[facility]ATORYCLIA [id number] [address] [place] Potassium [Moles/Vol] 4.5 mmol/L Normal 3.5-5.0 [facility] Comment on above: Order Comment: Speci men Type: VENOUS BLOOD SPECIMENOrdering Facility: [facility] Address: [address] [place] [address] Performed By: #### 2 4344-4 ####[facility]ORATORYCLIA [id number] [address] [place] Sodium [Moles/Vol] 140 mmol/L Normal 136-144 [facility] Comment on above: Order Comment: Speci men Type: VENOUS BLOOD SPECIMENOrdering Facility: [facility] Address: [address] [place] [address] Performed By: #### 2 4344-4 ####[facility]ORATORYCLIA [id number] [address] [place] Base excess Calc (BldV) [Moles/Vol] 7 mmol/L High 0-2 [facility] Comment on above: Order Comment: Speci men Type: VENOUS BLOOD SPECIMENOrdering Facility: [facility] Address: [address] [place] [address] Performed By: #### 2 4344-4 ####[facility]ATORYCLIA [id number] [address] Body temperature 96.26 [degF] Normal [facility] Comment on above: Order Comment: Speci men Type: VENOUS BLOOD SPECIMENOrdering Facility: [facility] Address: [address] [place] [address] Performed By: #### 2 4344-4 ####[facility]ORATORYCLIA [id number] [address] [place] Calcium.ionized (BldV) [Mass/Vol] 1.16 mmol/L Normal 1.08-1.30 [facility] Comment on above: Order Comment: Speci men Type: VENOUS BLOOD SPECIMENOrdering Facility: [facility] Address: [address] [place] [address] Performed By: #### 2 4344-4 ####[facility]ATORYCLIA [id number] [address] Calcium.ionized adjusted to pH 7.4 (BldA) [Moles/Vol] 1.09 mmol/L Normal 1.08-1.30 [facility] Comment on above: Order Comment: Speci men Type: VENOUS BLOOD SPECIMENOrdering Facility: [facility] Address: [address] [address] Performed By: #### 2 4344-4 ####[facility]ORATORYCLIA [id number] [address] [place] Carboxyhemoglobin (BldV) [Mass fraction] 2.0 % Normal 0.0-2.0 [facility] Comment on above: Order Comment: Speci men Type: VENOUS BLOOD SPECIMENOrdering Facility: [facility] Address: [address] [place] [address] Result Comment: Carb oxyhemoglobin Reference Range for Smokers: 2.0-8.0% Performed By: #### 2 4344-4 ####[facility]ATORYCLIA [id number] [address] [place] Chloride [Moles/Vol] 97 mmol/L Low 102-109 [facility] Comment on above: Order Comment: Speci men Type: VENOUS BLOOD SPECIMENOrdering Facility: [facility] Address: [address] [place] [address] Performed By: #### 2 4344-4 ####[facility]ORATORYCLIA [id number] [address] [place] CO2 (BldV) [Partial pressure] 76 mm[Hg] High 42-55 [facility] Comment on above: Order Comment: Speci men Type: VENOUS BLOOD SPECIMENOrdering Facility: [facility] Address: [address] [place] [address] Performed By: #### 2 4344-4 ####[facility]ORATORYCLIA [id number] [address] [place] CO2 [Moles/Vol] 34 mmol/L High 25-29 [facility] Comment on above: Order Comment: Speci men Type: VENOUS BLOOD SPECIMENOrdering Facility: [facility] Address: [address] [place] [address] Performed By: #### 2 4344-4 ####[facility] LABORATORYCLIA [id number] [address] [place] CO2 adjusted to patient's actual temperature (BldV) [Partial pressure] 72 mmHg High 42-55 [facility] Comment on above: Order Comment: Speci men Type: VENOUS BLOOD SPECIMENOrdering Facility: [facility] Address: [address] [address] Performed By: #### 2 4344-4 ####[facility]ORATORYCLIA [id number] [place] [address] [place] Glucose [Mass/Vol] 187 mg/dL High 60-105 [facility] Comment on above: Order Comment: Speci men Type: VENOUS BLOOD SPECIMENOrdering Facility: [facility] Address: [address] [place] [address] Performed By: #### 2 4344-4 ####[facility]ATORYCLIA [id number] [address] [place] HCO3 (Bld) [Moles/Vol] 35 mmol/L High 24-28 [facility] Comment on above: Order Comment: Speci men Type: VENOUS BLOOD SPECIMENOrdering Facility: [facility] Address: [address] [place] [address] Performed By: #### 2 4344-4 ####[facility] LABORATORYCLIA [id number] [address] [place] Hematocrit (Bld) [Volume fraction] 29.0 % Low 36.0-46.0 [facility] Comment on above: Order Comment: Speci men Type: VENOUS BLOOD SPECIMENOrdering Facility: [facility] Address: [address] [address] Performed By: #### 2 4344-4 ####[facility]ORATORYCLIA [id number] [address] [place] Hemoglobin (Bld) [Mass/Vol] 9.4 g/dL Low 11.5-15.5 [facility] Comment on above: Order Comment: Speci men Type: VENOUS BLOOD SPECIMENOrdering Facility: [facility] Address: [address] [address] Performed By: #### 2 4344-4 ####[facility]ORATORYCLIA [id number] [address] [place] Lactate [Moles/Vol] 1.5 mmol/L Normal 0.5-2.2 [facility] Comment on above: Order Comment: Speci men Type: VENOUS BLOOD SPECIMENOrdering Facility: [facility] Address: [address] [place] [address] Performed By: #### 2 4344-4 ####[facility]ORATORYCLIA [id number] [address] [place] Methemoglobin (Bld) [Mass fraction] 1.3 % Normal 0.0-1.5 [facility] Comment on above: Order Comment: Speci men Type: VENOUS BLOOD SPECIMENOrdering Facility: [facility] Address: [address] [place] [address] Performed By: #### 2 4344-4 ####[facility]ORATORYCLIA [id number] [address] O2 THERAPY NC = Nasal Cannula Normal [facility] Comment on above: Order Comment: Speci men Type: VENOUS BLOOD SPECIMENOrdering Facility: [facility] Address: [address] [place] [address] Performed By: #### 2 4344-4 ####[facility]ORATORYCLIA [id number] [address] [place] Oxygen (BldV) [Partial pressure] 163 mm[Hg] High 35-45 [facility] Comment on above: Order Comment: Speci men Type: VENOUS BLOOD SPECIMENOrdering Facility: [facility] Address: [address] [address] Performed By: #### 2 4344-4 ####[facility]ATORYCLIA [id number] [address] Oxygen adjusted to patient's actual temperature (BldV) [Partial pressure] 157 mmHg High 35-45 [facility] Comment on above: Order Comment: Speci men Type: VENOUS BLOOD SPECIMENOrdering Facility: [facility] Address: [address] [address] Performed By: #### 2 4344-4 ####[facility] LABORATORYCLIA [id number] [address] Oxygen saturation in Venous blood 99 % High 60-85 [facility] Comment on above: Order Comment: Speci men Type: VENOUS BLOOD SPECIMENOrdering Facility: [facility] Address: [address] [place] [address] Performed By: #### 2 4344-4 ####[facility]ATORYCLIA [id number] [address] Oxyhemoglobin (BldV) [Mass fraction] 96 % High 60-85 [facility] Comment on above: Order Comment: Speci men Type: VENOUS BLOOD SPECIMENOrdering Facility: [facility] Address: [address] [place] [address] Performed By: #### 2 4344-4 ####[facility]ORATORYCLIA [id number] [address] [place] pH (BldV) 7.28 [pH] Low 7.32-7.42 [facility] Comment on above: Order Comment: Speci men Type: VENOUS BLOOD SPECIMENOrdering Facility: [facility] Address: [address] [place] [address] Performed By: #### 2 4344-4 ####[facility]ORATORYCLIA [id number] [address] [place] [facility] adjusted to patient's actual temperature (BldV) 7.30 Low 7.32-7.42 [facility] Comment on above: Order Comment: Speci men Type: VENOUS BLOOD SPECIMENOrdering Facility: [facility] Address: [address] [place] [address] Performed By: #### 2 4344-4 ####[facility]ATORYCLIA [id number] [address] [place] Potassium [Moles/Vol] 4.1 mmol/L Normal 3.5-5.0 [facility] Comment on above: Order Comment: Speci men Type: VENOUS BLOOD SPECIMENOrdering Facility: [facility] Address: [address] [place] [address] Performed By: #### 2 4344-4 ####[facility]ATORYCLIA [id number] [address] [place] Sodium [Moles/Vol] 140 mmol/L Normal 136-144 [facility] Comment on above: Order Comment: Speci men Type: VENOUS BLOOD SPECIMENOrdering Facility: [facility] Address: [address] [place] [address] Performed By: #### 2 4344-4 ####[facility]ATORYCLIA [id number] [address] [place] NURSING PROGon 02-12-2023 NURSING PROG Normal [facility] Renal function 2000 panelon 02-12-2023 Albumin [Mass/Vol] 3.3 g/dL Low 3.9-4.9 [facility] Comment on above: Order Comment: Speci men Type: BLOOD SPECIMENOrdering Facility: [facility] Address: [address] [place] [address] Performed By: #### 2 4362-6 ####[facility]ATORYCLIA [id number] [address] [place] Anion gap [Moles/Vol] 8 mmol/L Low 9-18 [facility] Comment on above: Order Comment: Speci men Type: BLOOD SPECIMENOrdering Facility: [facility] Address: [address] [address] Performed By: #### 2 4362-6 ####[facility]ORATORYCLIA [id number] [address] [place] Calcium [Mass/Vol] 8.7 mg/dL Normal 8.5-10.2 [facility] Comment on above: Order Comment: Speci men Type: BLOOD SPECIMENOrdering Facility: [facility] Address: [address] [place] [address] Performed By: #### 2 4362-6 ####[facility]ORATORYCLIA [id number] [address] [place] Chloride [Moles/Vol] 97 mmol/L Normal 97-105 [facility] Comment on above: Order Comment: Speci men Type: BLOOD SPECIMENOrdering Facility: [facility] Address: [address] [place] [address] Performed By: #### 2 4362-6 ####[facility]ORATORYCLIA [id number] [address] [place] CO2 [Moles/Vol] 35 mmol/L High 22-30 [facility] Comment on above: Order Comment: Speci men Type: BLOOD SPECIMENOrdering Facility: [facility] Address: [address] [place] [address] Performed By: #### 2 4362-6 ####[facility]ORATORYCLIA [id number] [address] STATES OF [facility] Creatinine [Mass/Vol] 1.54 mg/dL High 0.58-0.96 [facility] Comment on above: Order Comment: Speci men Type: BLOOD SPECIMENOrdering Facility: [facility] Address: [address] [place] [address] Performed By: #### 2 4362-6 ####[facility]ORATORYCLIA [id number] [address] ESTIMATED GLOMERULAR FILTRATION RATE 37 mL/min/1.73m??? Low >=60 [facility] Comment on above: Order Comment: Speci men Type: BLOOD SPECIMENOrdering Facility: [facility] Address: [address] [place] [address] Result Comment: Petra mated Glomerular Filtration Rate [...] actual GFR. Performed By: #### 2 4362-6 ####[facility]ORATORYCLIA [id number] [place] [address] [place] Glucose [Mass/Vol] 235 mg/dL High 74-99 [facility] Comment on above: Order Comment: Luhi bozena Type: BLOOD SPECIMENOrdering Facility: [facility] Address: [address] [place] [address] Result Comment: The [place] [employer] (ADA) provides guidance for cutoff [...] Standards of Medical Care in Diabetes 2016, [place] [employer]. Diabetes Care. 2016.39(Suppl 1). Performed By: #### 2 4362-6 ####[facility]ORATORYCLIA [id number] [place] [address] [place] Phosphate [Mass/Vol] 3.6 mg/dL Normal 2.7-4.8 [facility] Comment on above: Order Comment: Luhi bozena Type: BLOOD SPECIMENOrdering Facility: [facility] Address: [address] [place] [address] Performed By: #### 2 4362-6 ####[facility]ATORYCLIA [id number] [place] [address] [place] Potassium [Moles/Vol] 4.5 mmol/L Normal 3.7-5.1 [facility] Comment on above: Order Comment: Speci men Type: BLOOD SPECIMENOrdering Facility: [facility] Address: [address] [place] [address] Performed By: #### 2 4362-6 ####[facility]ATORYCLIA [id number] [place] [address] [place] Sodium [Moles/Vol] 140 mmol/L Normal 136-144 [facility] Comment on above: Order Comment: Speci men Type: BLOOD SPECIMENOrdering Facility: [facility] Address: [address] [place] [address] Performed By: #### 2 4362-6 ####[facility]ORATORYCLIA [id number] [place] [address] [place] Urea nitrogen [Mass/Vol] 26 mg/dL High 7-21 [facility] Comment on above: Order Comment: Speci men Type: BLOOD SPECIMENOrdering Facility: [facility] Address: [address] [place] [address] Performed By: #### 2 4362-6 ####[facility]ORATORYCLIA [id number] [address] [place] THERAPY NTon 02-12-2023 THERAPY NT Normal [facility] THERAPY NT Normal [facility] XR CHEST 1V FRONTALon 2022 XR CHEST 1V FRONTAL Normal [facility] ALLIED HEALTHon 02-11-2023 ALLIED HEALTH Normal [facility] ALLIED HEALTH Normal [facility] CBC W Auto Differential pane l (Bld)on 02-11-2023 Basophils (Bld) [#/Vol] 0.05 10*3/uL Normal <0.11 [facility] Comment on above: Order Comment: Speci men Type: BLOOD SPECIMENOrdering Facility: [facility] Address: [address] [place] [address] Result Comment: Diff erential confirmed by visual scan of peripheral blood smear slide. Performed By: #### 5 7021-8 ####[facility]ATORYCLIA [id number] [address] [place] Basophils/100 WBC (Bld) 0.6 % Normal A [facility] Comment on above: Order Comment: Speci men Type: BLOOD SPECIMENOrdering Facility: [facility] Address: [address] [place] [address] Performed By: #### 5 7021-8 ####[facility]ATORYCLIA [id number] [address] [place] Differential cell count method Nom (Bld) Auto Normal [facility] Comment on above: Order Comment: Speci men Type: BLOOD SPECIMENOrdering Facility: [facility] Address: [address] [place] [address] Performed By: #### 5 7021-8 ####[facility]ATORYCLIA [id number] [address] [place] Eosinophils (Bld) [#/Vol] 0.62 10*3/uL High <0.46 [facility] Comment on above: Order Comment: Speci men Type: BLOOD SPECIMENOrdering Facility: [facility] Address: [address] [place] [address] Performed By: #### 5 7021-8 ####[facility]ATORYCLIA [id number] [address] Eosinophils/100 WBC (Bld) 7.8 % Normal [facility] Comment on above: Order Comment: Speci men Type: BLOOD SPECIMENOrdering Facility: [facility] Address: [address] [place] [address] Performed By: #### 5 7021-8 ####[facility]ORATORYCLIA [id number] [address] [place] Erythrocyte distribution width (RBC) [Ratio] 15.9 % High 11.5-15.0 [facility] Comment on above: Order Comment: Speci men Type: BLOOD SPECIMENOrdering Facility: [facility] Address: [address] [place] [address] Performed By: #### 5 7021-8 ####[facility]ATORYCLIA [id number] [address] [place] Hematocrit (Bld) [Volume fraction] 29.6 % Low 36.0-46.0 [facility] Comment on above: Order Comment: Speci men Type: BLOOD SPECIMENOrdering Facility: [facility] Address: [address] [address] Performed By: #### 5 7021-8 ####[facility]ATORYCLIA [id number] [address] [place] Hemoglobin (Bld) [Mass/Vol] 8.4 g/dL Low 11.5-15.5 [facility] Comment on above: Order Comment: Speci men Type: BLOOD SPECIMENOrdering Facility: [facility] Address: [address] [place] [address] Performed By: #### 5 7021-8 ####[facility]ORATORYCLIA [id number] [address] [place] Immature granulocytes (Bld) [#/Vol] 0.21 10*3/uL High <0.10 [facility] Comment on above: Order Comment: Speci men Type: BLOOD SPECIMENOrdering Facility: [facility] Address: [address] [place] [address] Performed By: #### 5 7021-8 ####[facility]ORATORYCLIA [id number] [address] [place] Immature granulocytes/100 WBC (Bld) 2.6 % Normal [facility] Comment on above: Order Comment: Speci men Type: BLOOD SPECIMENOrdering Facility: [facility] Address: [address] [place] [address] Performed By: #### 5 7021-8 ####[facility]ORATORYCLIA [id number] [place] [address] [place] Lymphocytes (Bld) [#/Vol] 1.30 10*3/uL Normal 1.00-4.00 [facility] Comment on above: Order Comment: Speci men Type: BLOOD SPECIMENOrdering Facility: [facility] Address: [address] [place] [address] Performed By: #### 5 7021-8 ####[facility]ATORYCLIA [id number] [address] [place] Lymphocytes/100 WBC (Bld) 16.3 % Normal [facility] Comment on above: Order Comment: Speci men Type: BLOOD SPECIMENOrdering Facility: [facility] Address: [address] [address] Performed By: #### 5 7021-8 ####[facility]ORATORYCLIA [id number] [address] MCH (RBC) [Entitic mass] 27.7 pg Normal 26.0-34.0 [facility] Comment on above: Order Comment: Speci men Type: BLOOD SPECIMENOrdering Facility: [facility] Address: [address] [place] [address] Performed By: #### 5 7021-8 ####[facility]ORATORYCLIA [id number] [address] MCHC (RBC) [Mass/Vol] 28.4 g/dL Low 30.5-36.0 [facility] Comment on above: Order Comment: Speci men Type: BLOOD SPECIMENOrdering Facility: [facility] Address: [address] [place] [address] Performed By: #### 5 7021-8 ####[facility]ORATORYCLIA [id number] [address] MCV (RBC) [Entitic vol] 97.7 fL Normal 80.0-100.0 A [facility] Comment on above: Order Comment: Speci men Type: BLOOD SPECIMENOrdering Facility: [facility] Address: [address] [place] [address] Performed By: #### 5 7021-8 ####[facility]ORATORYCLIA [id number] [address] Monocytes (Bld) [#/Vol] 0.78 10*3/uL Normal <0.87 [facility] Comment on above: Order Comment: Speci men Type: BLOOD SPECIMENOrdering Facility: [facility] Address: [address] [place] [address] Performed By: #### 5 7021-8 ####[facility]ORATORYCLIA [id number] [place] [address] [place] Monocytes/100 WBC (Bld) 9.8 % Normal A [facility] Comment on above: Order Comment: Speci men Type: BLOOD SPECIMENOrdering Facility: [facility] Address: [address] [place] [address] Performed By: #### 5 7021-8 ####[facility]ORATORYCLIA [id number] [place] [address] [place] Neutrophils (Bld) [#/Vol] 5.02 10*3/uL Normal 1.45-7.50 [facility] Comment on above: Order Comment: Speci men Type: BLOOD SPECIMENOrdering Facility: [facility] Address: [address] [place] [address] Performed By: #### 5 7021-8 ####[facility] LABORATORYCLIA [id number] [address] [place] Neutrophils/100 WBC (Bld) 62.9 % Normal [facility] Comment on above: Order Comment: Speci men Type: BLOOD SPECIMENOrdering Facility: [facility] Address: [address] [place] [address] Performed By: #### 5 7021-8 ####[facility] LABORATORYCLIA [id number] [place] [address] [place] Nucleated RBC (Bld) [#/Vol] 10*3/uL Normal <0.01 [facility] Comment on above: Order Comment: Speci men Type: BLOOD SPECIMENOrdering Facility: [facility] Address: [address] [place] [address] Performed By: #### 5 7021-8 ####[facility] LABORATORYCLIA [id number] [address] [place] Nucleated RBC/100 WBC (Bld) [Ratio] 0.0 /100 WBC Normal [facility] Comment on above: Order Comment: Speci men Type: BLOOD SPECIMENOrdering Facility: [facility] Address: [address] [place] [address] Performed By: #### 5 7021-8 ####[facility] LABORATORYCLIA [id number] [address] [place] Platelet mean volume (Bld) [Entitic vol] 8.7 fL Low 9.0-12.7 [facility] Comment on above: Order Comment: Speci men Type: BLOOD SPECIMENOrdering Facility: [facility] Address: [address] [place] [address] Performed By: #### 5 7021-8 ####[facility]ATORYCLIA [id number] [place] [address] [place] Platelets (Bld) [#/Vol] 304 10*3/uL Normal 150-400 [facility] Comment on above: Order Comment: Speci men Type: BLOOD SPECIMENOrdering Facility: [facility] Address: [address] [place] [address] Performed By: #### 5 7021-8 ####[facility]ATORYCLIA [id number] [place] [address] [place] RBC (Bld) [#/Vol] 3.03 10*6/uL Low 3.90-5.20 [facility] Comment on above: Order Comment: Speci men Type: BLOOD SPECIMENOrdering Facility: [facility] Address: [address] [place] [address] Performed By: #### 5 7021-8 ####[facility]ATORYCLIA [id number] [place] [address] [place] WBC (Bld) [#/Vol] 7.98 10*3/uL Normal 3.70-11.00 [facility] Comment on above: Order Comment: Speci men Type: BLOOD SPECIMENOrdering Facility: [facility] Address: [address] [place] [address] Performed By: #### 5 7021-8 ####[facility]ATORYCLIA [id number] [address] [place] BRAIN WO IVCONon 02-12-[address] BRAIN WO IVCON Normal [facility] Comprehensive metabolic 2000 panelon 02-11-2023 Albumin [Mass/Vol] 3.1 g/dL Low 3.9-4.9 [facility] Comment on above: Order Comment: Speci men Type: BLOOD SPECIMENOrdering Facility: [facility] Address: [address] [place] [address] Performed By: #### 2 4323-8, 3040-3 ####[facility] LABORATORYCLIA [id number] [address] STATES OF [facility] ALP [Catalytic activity/Vol] 59 U/L Normal 34-123 [facility] Comment on above: Order Comment: Speci men Type: BLOOD SPECIMENOrdering Facility: [facility] Address: [address] [place] [address] Performed By: #### 2 4323-8, 0-3 ####[facility]ATORYCLIA [id number] [address] STATES OF [facility] ALT With P-5'-P [Catalytic activity/Vol] 8 U/L Normal 7-38 [facility] Comment on above: Order Comment: Speci men Type: BLOOD SPECIMENOrdering Facility: [facility] Address: [address] [place] [address] Performed By: #### 2 4323-8, 3040-3 ####[facility]ORATORYCLIA [id number] [address] STATES [facility] Anion gap [Moles/Vol] 10 mmol/L Normal 9-18 [facility] Comment on above: Order Comment: Speci men Type: BLOOD SPECIMENOrdering Facility: [facility] Address: [address] [place] [address] Performed By: #### 2 4323-8, 3040-3 ####[facility] LABORATORYCLIA [id number] [address] OF [facility] AST With P-5'-P [Catalytic activity/Vol] 14 U/L Normal 13-35 [facility] Comment on above: Order Comment: Speci men Type: BLOOD SPECIMENOrdering Facility: [facility] Address: [address] [address] Performed By: #### 2 4323-8, 0-3 ####[facility] LABORATORYCLIA [id number] [place] [address] [place] Bilirubin [Mass/Vol] 0.2 mg/dL Normal 0.2-1.3 [facility] Comment on above: Order Comment: Speci men Type: BLOOD SPECIMENOrdering Facility: [facility] Address: [address] [place] [address] Performed By: #### 2 4323-8, 3039-3 ####[facility]ORATORYCLIA [id number] [place] [address] [place] Calcium [Mass/Vol] 8.3 mg/dL Low 8.5-10.2 [facility] Comment on above: Order Comment: Speci men Type: BLOOD SPECIMENOrdering Facility: [facility] Address: [address] [place] [address] Performed By: #### 2 4323-8, 3039-3 ####[facility]ATORYCLIA [id number] [place] [address] [place] Chloride [Moles/Vol] 97 mmol/L Normal 97-105 [facility] Comment on above: Order Comment: Speci men Type: BLOOD SPECIMENOrdering Facility: [facility] Address: [address] [place] [address] Performed By: #### 2 4323-8, 3039-3 ####[facility]ORATORYCLIA [id number] [place] [address] [place] CO2 [Moles/Vol] 33 mmol/L High 22-30 [facility] Comment on above: Order Comment: Speci men Type: BLOOD SPECIMENOrdering Facility: [facility] Address: [address] [place] [address] Performed By: #### 2 4323-8, 0-3 ####[facility]ORATORYCLIA [id number] [place] [address] [place] Creatinine [Mass/Vol] 1.51 mg/dL High 0.58-0.96 [facility] Comment on above: Order Comment: Scott seals Type: BLOOD SPECIMENOrdering Facility: [facility] Address: [address] [id number] Performed By: #### 2 4323-8, 3040-3 ####[facility]ORATORYCLIA [id number] [place] [id number] [facility] ESTIMATED GLOMERULAR FILTRATION RATE 38 mL/min/1.73m??? Low >=60 [facility] Comment on above: Order Comment: Scott seals Type: BLOOD SPECIMENOrdering Facility: [facility] Address: [address] [place] [address] Result Comment: Petra mated Glomerular Filtration Rate [...] GFR. Performed By: #### 2 4323-8, 3040-3 ####[facility]ORATORYCLIA [id number] [place] [id number] [place] Glucose [Mass/Vol] 206 mg/dL High 74-99 [facility] Comment on above: Order Comment: Scott bozena Type: BLOOD SPECIMENOrdering Facility: [facility] Address: [address] [address] Result Comment: The [place] Diabetes Association (ADA) provides guidance for cutoff [...] Standards of Medical Care in Diabetes 2016, [place] [employer]. Diabetes Care. 2016.39(Suppl 1). Performed By: #### 2 4323-8, 0-3 ####[facility]ATORYCLIA [id number] [address] STATES OF [facility] Potassium [Moles/Vol] 4.1 mmol/L Normal 3.7-5.1 [facility] Comment on above: Order Comment: Speci men Type: BLOOD SPECIMENOrdering Facility: [facility] Address: [address] [place] [address] Performed By: #### 2 4323-8, 0-3 ####[facility]ORATORYCLIA [id number] [address] Protein [Mass/Vol] 5.3 g/dL Low 6.3-8.0 [facility] Comment on above: Order Comment: Speci men Type: BLOOD SPECIMENOrdering Facility: [facility] Address: [address] [place] [address] Performed By: #### 2 4323-8, 0-3 ####[facility]ATORYCLIA [id number] [address] Sodium [Moles/Vol] 140 mmol/L Normal 136-144 [facility] Comment on above: Order Comment: Speci men Type: BLOOD SPECIMENOrdering Facility: [facility] Address: [address] [place] [address] Performed By: #### 2 4323-8, 0-3 ####[facility]ORATORYCLIA [id number] [address] STATES OF [facility] Urea nitrogen [Mass/Vol] 28 mg/dL High 7-21 [facility] Comment on above: Order Comment: Speci men Type: BLOOD SPECIMENOrdering Facility: [facility] Address: [address] [address] Performed By: #### 2 4323-8, 0-3 ####[facility]ATORYCLIA [id number] [address] STATES OF [facility] ECG COMPLETEon 02-11-2023 ECG COMPLETE Normal [facility] ED NOTEon 02-11-2023 ED NOTE Normal [facility] ED NOTE HNO ID: [id number] Author: Kevin Farah RN Service: Emergency Medicine Author Type: Registered Nurse Type: ED Notes Filed: 02/11/2023 5:17 PM Note Text: External urine collection placed Normal [facility] ED NOTE HNO ID: [id number] Author: Kevin Farah RN Service: Emergency Medicine Author Type: Registered Nurse Type: ED Notes Filed: 02/11/2023 1:42 PM Note Text: Patient arrives via ems from f with c/o hallucinations. No distress noted. Normal [facility] ED NOTE Normal [facility] ED PROV NOTEon 02-11-2023 ED PROV NOTE Normal [facility] HIGH SENSITIVITY TROPONIN T (INITIAL)on 02-11-2023 HIGH SENSITIVITY MARIE 95 ng/L High <12 [facility] Comment on above: Order Comment: Scott seals Type: BLOOD SPECIMENOrdering Facility: [facility] Address: [address] [place] [address] Result Comment: When assessing risk for acute [...] 30 day MACE. Performed By: #### L [id number] ####[facility] LABORATORYCLIA [id number] [address] HIGH SENSITIVITY TROPONIN T (SECOND)on 02-11-2023 HIGH SENSITIVITY MARIE 84 ng/L High <12 [facility] Comment on above: Order Comment: Scott seals Type: BLOOD SPECIMENOrdering Facility: [facility] Address: [address] [place] [address] Result Comment: When assessing risk for acute [...] 30 day MACE. Performed By: #### L [id number] ####[facility] [id number] [address] HIGH SENSITIVITY TROPONIN T (THIRD) 3 HRS AFTER INITIALon 02-11-2023 HIGH SENSITIVITY MARIE 77 ng/L High <12 [facility] Comment on above: Order Comment: Speci men Type: BLOOD SPECIMENOrdering Facility: [facility] Address: [address] [place] [address] Result Comment: When assessing risk for acute [...] 30 day MACE. Performed By: #### L [id number] ####[facility] [id number] [address] HISTORY PHYSICALon 3 HISTORY PHYSICAL Normal [facility] Lipase SerPl-cCncon 02-12-20 23 Lipase [Catalytic activity/Vol] 25 U/L Normal 16-61 [facility] Comment on above: Order Comment: Speci men Type: BLOOD SPECIMENOrdering Facility: [facility] Address: [address] [place] [address] Performed By: #### 2 4323-8, 3040-3 ####[facility]ITALCL[facility] [id number] [address] OF [place] SARS-CoV-2 RNA Resp Ql IGGY+p robeon 02-11-2023 SARS-CoV-2 (COVID-19) RNA IGGY+probe Ql (Resp) COVID 19 RESULT: Not detected The method used is RT-PCR or an equivalent NAAT method. Reference Range(the expected result in uninfected individuals): Not detected Normal [facility] Comment on above: Performed By: #### 9 4500-6 ####[facility] [id number] [address] [place] Urinalysis complete panel (U )on 02-11-2023 Bilirubin Ql (U) Negative Normal Negative [facility] Comment on above: Order Comment: Speci men Type: URINE SPECIMENOrdering Facility: [facility] Address: [address] [place] [address] Performed By: #### 2 4356-8 ####[facility]ORATORYCLIA [id number] [address] [place] Clarity (Unsp spec) Clear Normal Clear [facility] Comment on above: Order Comment: Speci men Type: URINE SPECIMENOrdering Facility: [facility] Address: [address] [place] [address] Performed By: #### 2 4356-8 ####[facility]ORATORYCLIA [id number] [address] Color (U) Light Yellow Normal yellow [facility] Comment on above: Order Comment: Speci men Type: URINE SPECIMENOrdering Facility: [facility] Address: [address] [place] [address] Performed By: #### 2 4356-8 ####[facility]ATORYCLIA [id number] [address] Epithelial cells LM.HPF (Urine sed) [#/Area] Few Normal [facility] Comment on above: Order Comment: Speci men Type: URINE SPECIMENOrdering Facility: [facility] Address: [address] [place] [address] Performed By: #### 2 4356-8 ####[facility]ATORYCLIA [id number] [address] OF [place] Glucose Test strip (U) [Mass/Vol] Negative Normal Trace, Negative [facility] Comment on above: Order Comment: Speci men Type: URINE SPECIMENOrdering Facility: [facility] Address: [address] [place] [address] Performed By: #### 2 4356-8 ####[facility]ORATORYCLIA [id number] [address] OF [place] Hemoglobin Ql (U) Negative Normal Negative, Trace [facility] Comment on above: Order Comment: Speci men Type: URINE SPECIMENOrdering Facility: [facility] Address: [address] [address] Performed By: #### 2 4356-8 ####[facility]ATORYCLIA [id number] [address] OF [facility] Hyaline casts (Urine sed) [#/Area] 1-3 /LPF Abnormal 0 /LPF [facility] Comment on above: Order Comment: Speci men Type: URINE SPECIMENOrdering Facility: [facility] Address: [address] [place] [address] Performed By: #### 2 4356-8 ####[facility]ATORYCLIA [id number] [address] Ketones Ql (U) Negative Normal Negative, Trace [facility] Comment on above: Order Comment: Speci men Type: URINE SPECIMENOrdering Facility: [facility] Address: [address] [place] [address] Performed By: #### 2 4356-8 ####[facility]ATORYCLIA [id number] [address] Leukocyte esterase Test strip Ql (U) 250 Ha/uL Abnormal Negative, 25 Ha/uL [facility] Comment on above: Order Comment: Speci men Type: URINE SPECIMENOrdering Facility: [facility] Address: [address] [address] Performed By: #### 2 4356-8 ####[facility]ATORYCLIA [id number] [address] STATES OF [facility] Nitrite Ql (U) Negative Normal Negative [facility] Comment on above: Order Comment: Speci men Type: URINE SPECIMENOrdering Facility: [facility] Address: [address] [address] Performed By: #### 2 4356-8 ####[facility]ATORYCLIA [id number] [address] [place] pH (U) 6.0 [pH] Normal 5.0-8.0 [facility] Comment on above: Order Comment: Speci men Type: URINE SPECIMENOrdering Facility: [facility] Address: [address] [place] [address] Performed By: #### 2 4356-8 ####[facility]ORATORYCLIA [id number] [address] [place] Protein (U) [Mass/Vol] Negative Normal Trace , Negative [facility] Comment on above: Order Comment: Speci men Type: URINE SPECIMENOrdering Facility: [facility] Address: [address] [place] [address] Performed By: #### 2 4356-8 ####[facility]ATORYCLIA [id number] [address] RBC LM.HPF (Urine sed) [#/Area] 0-3 /HPF Normal 0-3 /HPF [facility] Comment on above: Order Comment: Speci men Type: URINE SPECIMENOrdering Facility: [facility] Address: [address] [place] [address] Performed By: #### 2 4356-8 ####[facility]ORATORYCLIA [id number] [address] [place] Specific gravity (U) [Rel density] 1.012 Normal 1.005-1.030 [facility] Comment on above: Order Comment: Speci men Type: URINE SPECIMENOrdering Facility: [facility] Address: [address] [place] [address] Performed By: #### 2 4356-8 ####[facility]ATORYCLIA [id number] [address] Urobilinogen Ql (U) Normal Normal Negative [facility] Comment on above: Order Comment: Speci men Type: URINE SPECIMENOrdering Facility: [facility] Address: [address] [place] [address] Performed By: #### 2 4356-8 ####[facility]ORATORYCLIA [id number] [place] [id number] [facility] WBC LM.HPF (Urine sed) [#/Area] 0-5 /HPF Normal 0-5 /HPF [facility] Comment on above: Order Comment: Speci men Type: URINE SPECIMENOrdering Facility: [facility] Address: [place] [address] Performed By: #### 2 4356-8 ####[facility]ORATORYCLIA [id number] [place] [address] [place] XR CHEST 1V FRONTALon 2022 XR CHEST 1V FRONTAL Normal [facility] CNPTOUTREACHon 02-06-2023 CNPTOUTREACH Normal [facility] Basophil percentageOrdered B y: Lucy Quick on 02-02-2023 Chloride [Moles/Vol] 106 mmol/L 98-107 [facility] Glucose [Mass/Vol] 196 mg/dL 74-106 [facility] Comment on above: Fasting Glucose resu lt greater than or equal to 126 mg/dL suggests DIABETES MELLITUS per A.D.A. criteria. Potassium [Moles/Vol] 4.6 mmol/L 3.5-5.1 [facility] Sodium [Moles/Vol] 139 mmol/L 136-145 [facility] WBC (Bld) [#/Vol] 7.4 10*3/uL 4.4-11.0 [facility] Blood erythrocytes count (nu mber/volume)Ordered By: Lucy Quick on 02-02-2023 RBC (Bld) [#/Vol] 2.80 10*6/uL 4.2-5.4 [facility] Blood hemoglobin measurement (mass/volume)Ordered By: Lucy Quick on 02-02-2023 Hemoglobin (Bld) [Mass/Vol] 10.2 g/dL 12.0-15.0 [facility] Blood platelet mean volumeOr dered By: Lucy Quick on 02-02-2023 Platelet mean volume (Bld) [Entitic vol] 11.3 fL 6.2-12.0 [facility] Determination of erythrocyte mean corpuscular volume (MCV)Ordered By: Lucy Quick on 02-02-2023 MCV (RBC) [Entitic vol] 97.5 fL 81-99 [facility] Hematocrit Auto (Bld) [Volum e fraction]Ordered By: Lucy Quick on 02-02-2023 Hematocrit (Bld) [Volume fraction] 27.3 % 37-47 [facility] Laboratory - Chemistry and C hemistry - challengeOrdered By: Lucy Quick on 02-02-2023 CO2 [Moles/Vol] 28.0 mmol/L 21.0-32.0 [facility] Urea nitrogen/Creatinine [Mass ratio] 27.7 mg/mg 10-20 [facility] Laboratory - Hematology and Cell countsOrdered By: Lucy Quick on 02-02-2023 Erythrocyte distribution width (RBC) [Entitic vol] 53.1 fL 35.1-43.9 [facility] Erythrocyte distribution width (RBC) [Ratio] 16.4 % 11.6-14.6 [facility] MCH (RBC) [Entitic mass] 36.4 pg 27.0-32.0 [facility] MCHC Auto (RBC) [Mass/Vol]Or dered By: Lucy Qiuck on 02-02-2023 MCHC (RBC) [Mass/Vol] 37.4 g/dL 32-36 [facility] No Panel InformationOrdered By: Lucy Quick on 02-02-2023 Estimated GFR (MDRD) Amer 59 mL/min >60 [facility] Comment on above: GFR Calc Estimated GFR (MDRD) Non-Af Amer 48 mL/min >60 [facility] Comment on above: Non- GFR Calc Platelets bldOrdered By: Josee Quick on 02-02-2023 Platelets (Bld) [#/Vol] 165 10*3/uL 150-450 [facility] Serum or plasma calcium catracho urement (mass/volume)Ordered By: Lucy Quick on 02-02-2023 Calcium [Mass/Vol] 8.6 mg/dL 8.5-10.1 [facility] Serum or plasma creatinine m easurement (mass/volume)Ordered By: Lucy Quick on 02-02-2023 Creatinine [Mass/Vol] 1.19 mg/dL 0.55-1.02 [facility] Comment on above: The validity of the calculated GFR & GFRAA in patients over 70 years has not been determined. Clinical correlation is essential. Serum or plasma urea nitroge n measurement (mass/volume)Ordered By: Lucy Quick on 02-02-2023 Urea nitrogen [Mass/Vol] 33 mg/dL 7-18 [facility] Thin prep Papanicolaou smear with manual screeningOrdered By: Lucy Quick on 02-02-2023 Thin prep Papanicolaou smear with manual screening 5 -15 [facility] CNPTOUTREACHon 01-29-2023 CNPTOUTREACH Normal [facility] ALLIED HEALTHon 01-28-2023 ALLIED HEALTH Normal [facility] CASE MANAGEMon 01-28-2023 CASE MANAGEM Normal [facility] CBC panel Auto (Bld)on 01-28 Erythrocyte distribution width (RBC) [Ratio] 16.4 % High 11.5-15.0 [facility] Comment on above: Order Comment: Speci men Type: BLOOD SPECIMENOrdering Facility: [facility] Address: [address] [place] [address] Performed By: #### 5 8410-2 ####[facility]ORATORYCLIA [id number] [address] [place] Hematocrit (Bld) [Volume fraction] 29.2 % Low 36.0-46.0 [facility] Comment on above: Order Comment: Speci men Type: BLOOD SPECIMENOrdering Facility: [facility] Address: [address] [address] Performed By: #### 5 8410-2 ####[facility]ORATORYCLIA [id number] [place] [address] [place] Hemoglobin (Bld) [Mass/Vol] 8.6 g/dL Low 11.5-15.5 [facility] Comment on above: Order Comment: Speci men Type: BLOOD SPECIMENOrdering Facility: [facility] Address: [address] [address] Performed By: #### 5 8410-2 ####[facility]ORATORYCLIA [id number] [address] MCH (RBC) [Entitic mass] 28.0 pg Normal 26.0-34.0 [facility] Comment on above: Order Comment: Speci men Type: BLOOD SPECIMENOrdering Facility: [facility] Address: [address] [place] [address] Performed By: #### 5 8410-2 ####[facility]ORATORYCLIA [id number] [address] MCHC (RBC) [Mass/Vol] 29.5 g/dL Low 30.5-36.0 [facility] Comment on above: Order Comment: Speci men Type: BLOOD SPECIMENOrdering Facility: [facility] Address: [address] [place] [address] Performed By: #### 5 8410-2 ####[facility]ORATORYCLIA [id number] [address] MCV (RBC) [Entitic vol] 95.1 fL Normal 80.0-100.0 [facility] Comment on above: Order Comment: Speci men Type: BLOOD SPECIMENOrdering Facility: [facility] Address: [address] [place] [address] Performed By: #### 5 8410-2 ####[facility]ATORYCLIA [id number] [address] Nucleated RBC (Bld) [#/Vol] 0.02 10*3/uL High <0.01 [facility] Comment on above: Order Comment: Speci men Type: BLOOD SPECIMENOrdering Facility: [facility] Address: [address] [place] [address] Performed By: #### 5 8410-2 ####[facility]ATORYCLIA [id number] [address] Platelet mean volume (Bld) [Entitic vol] 8.3 fL Low 9.0-12.7 [facility] Comment on above: Order Comment: Speci men Type: BLOOD SPECIMENOrdering Facility: [facility] Address: [address] [place] [address] Performed By: #### 5 8410-2 ####[facility]ATORYCLIA [id number] [address] [place] Platelets (Bld) [#/Vol] 340 10*3/uL Normal 150-400 [facility] Comment on above: Order Comment: Speci men Type: BLOOD SPECIMENOrdering Facility: [facility] Address: [address] [place] [address] Performed By: #### 5 8410-2 ####[facility]ORATORYCLIA [id number] [address] STATES OF [facility] RBC (Bld) [#/Vol] 3.07 10*6/uL Low 3.90-5.20 [facility] Comment on above: Order Comment: Speci men Type: BLOOD SPECIMENOrdering Facility: [facility] Address: [address] [place] [address] Performed By: #### 5 8410-2 ####[facility]ATORYCLIA [id number] [address] WBC (Bld) [#/Vol] 7.88 10*3/uL Normal 3.70-11.00 [facility] Comment on above: Order Comment: Speci men Type: BLOOD SPECIMENOrdering Facility: [facility] Address: [address] [place] [address] Performed By: #### 5 8410-2 ####[facility]ATORYCLIA [id number] [address] Comprehensive metabolic 2000 panelon 01-28-2023 Albumin [Mass/Vol] 3.1 g/dL Low 3.9-4.9 [facility] Comment on above: Order Comment: Speci men Type: BLOOD SPECIMENOrdering Facility: [facility] Address: [address] [place] [address] Performed By: #### 2 4323-8 ####[facility] LABORATORYCLIA [id number] [address] STATES [facility] ALP [Catalytic activity/Vol] 59 U/L Normal 34-123 [facility] Comment on above: Order Comment: Speci men Type: BLOOD SPECIMENOrdering Facility: [facility] Address: [address] [place] [address] Performed By: #### 2 4323-8 ####[facility] LABORATORYCLIA [id number] [address] [place] ALT With P-5'-P [Catalytic activity/Vol] 11 U/L Normal 7-38 [facility] Comment on above: Order Comment: Speci men Type: BLOOD SPECIMENOrdering Facility: [facility] Address: [address] [place] [address] Performed By: #### 2 4323-8 ####[facility] LABORATORYCLIA [id number] [address] Anion gap [Moles/Vol] 10 mmol/L Normal 9-18 [facility] Comment on above: Order Comment: Speci men Type: BLOOD SPECIMENOrdering Facility: [facility] Address: [address] [place] [address] Performed By: #### 2 4323-8 ####[facility] LABORATORYCLIA [id number] [address] AST With P-5'-P [Catalytic activity/Vol] 15 U/L Normal 13-35 [facility] Comment on above: Order Comment: Speci men Type: BLOOD SPECIMENOrdering Facility: [facility] Address: [address] [place] [address] Performed By: #### 2 4323-8 ####[facility] LABORATORYCLIA [id number] [address] [place] Bilirubin [Mass/Vol] 0.2 mg/dL Normal 0.2-1.3 [facility] Comment on above: Order Comment: Speci men Type: BLOOD SPECIMENOrdering Facility: [facility] Address: [address] [place] [address] Performed By: #### 2 4323-8 ####[facility] LABORATORYCLIA [id number] [address] [place] Calcium [Mass/Vol] 8.6 mg/dL Normal 8.5-10.2 [facility] Comment on above: Order Comment: Speci men Type: BLOOD SPECIMENOrdering Facility: [facility] Address: [address] [place] [address] Performed By: #### 2 4323-8 ####[facility] LABORATORYCLIA [id number] [address] [place] Chloride [Moles/Vol] 100 mmol/L Normal 97-105 [facility] Comment on above: Order Comment: Speci men Type: BLOOD SPECIMENOrdering Facility: [facility] Address: [address] [place] [address] Performed By: #### 2 4323-8 ####[facility] LABORATORYCLIA [id number] [address] [place] CO2 [Moles/Vol] 29 mmol/L Normal 22-30 [facility] Comment on above: Order Comment: Speci men Type: BLOOD SPECIMENOrdering Facility: [facility] Address: [address] [place] [address] Performed By: #### 2 4323-8 ####[facility] LABORATORYCLIA [id number] [address] [place] Creatinine [Mass/Vol] 1.44 mg/dL High 0.58-0.96 [facility] Comment on above: Order Comment: Speci men Type: BLOOD SPECIMENOrdering Facility: [facility] Address: [address] [place] [address] Performed By: #### 2 4323-8 ####[facility] LABORATORYCLIA [id number] [address] ESTIMATED GLOMERULAR FILTRATION RATE 40 mL/min/1.73m??? Low >=60 [facility] Comment on above: Order Comment: Scott seals Type: BLOOD SPECIMENOrdering Facility: [facility] Address: [address] [place] [address] Result Comment: Petra mated Glomerular Filtration Rate [...] actual GFR. Performed By: #### 2 4323-8 ####[facility] LABORATORYCLIA [id number] [place] [address] [place] Glucose [Mass/Vol] 220 mg/dL High 74-99 [facility] Comment on above: Order Comment: Scott seals Type: BLOOD SPECIMENOrdering Facility: [facility] Address: [address] [place] [address] Result Comment: The [place] Diabetes Association (ADA) provides guidance for cutoff [...] Standards of Medical Care in Diabetes 2016, [place] [employer]. Diabetes Care. 2016.39(Suppl 1). Performed By: #### 2 4323-8 ####[facility] LABORATORYCLIA [id number] [place] [address] [place] Potassium [Moles/Vol] 5.1 mmol/L Normal 3.7-5.1 [facility] Comment on above: Order Comment: Scott seals Type: BLOOD SPECIMENOrdering Facility: [facility] Address: [address] [address] Performed By: #### 2 4323-8 ####[facility] LABORATORYCLIA [id number] [address] STATES [facility] Protein [Mass/Vol] 5.4 g/dL Low 6.3-8.0 [facility] Comment on above: Order Comment: Speci men Type: BLOOD SPECIMENOrdering Facility: [facility] Address: [address] [place] [address] Performed By: #### 2 4323-8 ####[facility] LABORATORYCLIA [id number] [address] [place] Sodium [Moles/Vol] 139 mmol/L Normal 136-144 [facility] Comment on above: Order Comment: Speci men Type: BLOOD SPECIMENOrdering Facility: [facility] Address: [address] [place] [address] Performed By: #### 2 4323-8 ####[facility] LABORATORYCLIA [id number] [address] STATES [facility] Urea nitrogen [Mass/Vol] 33 mg/dL High 7-21 [facility] Comment on above: Order Comment: Speci men Type: BLOOD SPECIMENOrdering Facility: [facility] Address: [address] [place] [address] Performed By: #### 2 4323-8 ####[facility] LABORATORYCLIA [id number] [address] [place] ECG COMPLETEon 01-28-2023 ECG COMPLETE Normal [facility] ED NOTEon 01-28-2023 ED NOTE HNO ID: [id number] Author: Sandy Steve RN Service: Emergency Medicine Author Type: Registered Nurse Type: ED Notes Filed: 01/28/2023 2:30 PM Note Text: 4Ride ETA 1630 Normal [facility] ED NOTE HNO ID: [id number] Author: Sandy Steve RN Service: Emergency Medicine Author Type: Registered Nurse Type: ED Notes Filed: 01/28/2023 11:53 AM Note Text: Pt stated not wanting to be strait cathed. Dr Díaz notified. Normal [facility] ED NOTE Normal [facility] ED NOTE HNO ID: [id number] Author: Villa Vallejo RN Service: ? Author Type: Registered Nurse Type: ED Notes Filed: 01/28/2023 10:06 AM Note Text: Bed: 25-ED Expected date: 01/28/23 Expected time: Means of arrival: [facility] Comments: [facility]: R/O UTI Normal [facility] ED PROV NOTEon 01-28-2023 ED PROV NOTE Normal [facility] HIGH SENSITIVITY TROPONIN T (INITIAL)on 01-28-2023 HIGH SENSITIVITY MARIE 91 ng/L High <12 [facility] Comment on above: Order Comment: Scott seals Type: BLOOD SPECIMENOrdering Facility: [facility] Address: [address] [place] [address] Result Comment: When assessing risk for acute [...] 30 day MACE. Performed By: #### L [id number] ####[facility] LABORATORYCLIA [id number] [address] OF [facility] HIGH SENSITIVITY TROPONIN T (SECOND)on 01-28-2023 HIGH SENSITIVITY MARIE 88 ng/L High <12 [facility] Comment on above: Order Comment: Scott seals Type: BLOOD SPECIMENOrdering Facility: [facility] Address: [address] [place] [address] Result Comment: When assessing risk for acute [...] 30 day MACE. Performed By: #### L [id number] ####[facility] LABORATORYCLIA [id number] [place] [address] [place] HIGH SENSITIVITY TROPONIN T (THIRD) 3 HRS AFTER INITIALon 01-28-2023 HIGH SENSITIVITY MARIE 88 ng/L High <12 [facility] Comment on above: Order Comment: Luhi men Type: BLOOD SPECIMENOrdering Facility: [facility] Address: [address] [place] [address] Result Comment: When assessing risk for acute [...] 30 day MACE. Performed By: #### L [id number] ####[facility] LABORATORYCLIA [id number] [address] OF [facility] Urinalysis complete pnl Uron 01-28-2023 Urinalysis complete panel (U) Abnormal [facility] Comment on above: Order Comment: Speci men Type: URINE SPECIMENOrdering Facility: [facility] Address: [address] [place] [address] Performed By: #### 2 4356-8 ####[facility] LABORATORYCLIA [id number] [address] OF [facility] XR CHEST 1V FRONTALon 2022 XR CHEST 1V FRONTAL Normal [facility] Basophil percentageOrdered B y: Lucy Quick on 01-26-2023 Chloride [Moles/Vol] 102 mmol/L 98-107 [facility] Glucose [Mass/Vol] 191 mg/dL 74-106 [facility] Comment on above: Fasting Glucose resu lt greater than or equal to 126 mg/dL suggests DIABETES MELLITUS per A.D.A. criteria. Potassium [Moles/Vol] 4.3 mmol/L 3.5-5.1 [facility] Sodium [Moles/Vol] 137 mmol/L 136-145 [facility] WBC (Bld) [#/Vol] 9.9 10*3/uL 4.4-11.0 [facility] Blood erythrocytes count (nu mber/volume)Ordered By: Lucy Quick on 01-26-2023 RBC (Bld) [#/Vol] 3.43 10*6/uL 4.2-5.4 [facility] Blood hemoglobin measurement (mass/volume)Ordered By: Lucy Quick on 01-26-2023 Hemoglobin (Bld) [Mass/Vol] 9.5 g/dL 12.0-15.0 [facility] Blood platelet mean volumeOr dered By: Lucy Quick on 01-26-2023 Platelet mean volume (Bld) [Entitic vol] 11.1 fL 6.2-12.0 [facility] Determination of erythrocyte mean corpuscular volume (MCV)Ordered By: Lucy Quick on 01-26-2023 MCV (RBC) [Entitic vol] 86.9 fL 81-99 [facility] Hematocrit Auto (Bld) [Volum e fraction]Ordered By: Lucy Quick on 01-26-2023 Hematocrit (Bld) [Volume fraction] 29.8 % 37-47 [facility] Laboratory - Chemistry and C hemistry - challengeOrdered By: Lucy Quick on 01-26-2023 CO2 [Moles/Vol] 29.0 mmol/L 21.0-32.0 [facility] Urea nitrogen/Creatinine [Mass ratio] 22.0 mg/mg 10-20 [facility] Laboratory - Hematology and Cell countsOrdered By: Lucy Quick on 01-26-2023 Erythrocyte distribution width (RBC) [Entitic vol] 53.3 fL 35.1-43.9 [facility] Erythrocyte distribution width (RBC) [Ratio] 16.9 % 11.6-14.6 [facility] MCH (RBC) [Entitic mass] 27.7 pg 27.0-32.0 [facility] MCHC Auto (RBC) [Mass/Vol]Or dered By: Lucy Quick on 01-26-2023 MCHC (RBC) [Mass/Vol] 31.9 g/dL 32-36 [facility] No Panel InformationOrdered By: Lucy Quick on 01-26-2023 Estimated GFR (MDRD) Amer 59 mL/min >60 [facility] Comment on above: GFR Calc Estimated GFR (MDRD) Non-Af Amer 49 mL/min >60 [facility] Comment on above: Non- GFR Calc Platelets bldOrdered By: Josee Quick on 01-26-2023 Platelets (Bld) [#/Vol] 298 10*3/uL 150-450 [facility] Serum or plasma calcium catracho urement (mass/volume)Ordered By: Lucy Quick on 01-26-2023 Calcium [Mass/Vol] 8.8 mg/dL 8.5-10.1 [facility] Serum or plasma creatinine m easurement (mass/volume)Ordered By: Lucy Quick on 01-26-2023 Creatinine [Mass/Vol] 1.18 mg/dL 0.55-1.02 [facility] Comment on above: The validity of the calculated GFR & GFRAA in patients over 70 years has not been determined. Clinical correlation is essential. Serum or plasma urea nitroge n measurement (mass/volume)Ordered By: Lucy Quick on 01-26-2023 Urea nitrogen [Mass/Vol] 26 mg/dL 7-18 [facility] Thin prep Papanicolaou smear with manual screeningOrdered By: Lucy Quick on 01-26-2023 Thin prep Papanicolaou smear with manual screening 6 5-15 [facility] Absolute lymphocyte countOrd ered By: Lucy Quick on 01-18-2023 Lymphocytes Auto (Unsp spec) [#/Vol] 2.69 10*3/uL 0.83-4.51 [facility] Basophil percentageOrdered B y: Lucy Quick on 01-18-2023 Basophil percentage Not Reportable [facility] Neutrophils (Bld) [#/Vol] 4.2 10*3/uL 2.0-7.7 [facility] WBC (Bld) [#/Vol] 7.7 10*3/uL 4.4-11.0 [facility] Blood band neutrophil count as percentage of total leukocytesOrdered By: Lucy Quick on 01-18-2023 Band form neutrophils/100 WBC (Bld) 1 % 0-5 [facility] Blood eosinophils/100 leukoc ytesOrdered By: Lucy Quick on 01-18-2023 Eosinophils/100 WBC (Bld) 6 % 0-5 [facility] Blood erythrocytes count (nu mber/volume)Ordered By: Lucy Quick on 01-18-2023 RBC (Bld) [#/Vol] 3.17 10*6/uL 4.2-5.4 [facility] Blood hemoglobin measurement (mass/volume)Ordered By: Lucy Quick on 01-18-2023 Hemoglobin (Bld) [Mass/Vol] 8.9 g/dL 12.0-15.0 [facility] Blood lymphocytes/100 leukoc ytesOrdered By: Lucy Quick on 01-18-2023 Lymphocytes/100 WBC (Bld) 35 % 19-41 [facility] Blood monocytes/100 leukocyt esOrdered By: Lucy Quick on 01-18-2023 Monocytes/100 WBC (Bld) 3 % 0-10 [facility] Blood platelet adequacy dete ction by light microscopyOrdered By: Lucy Quick on 01-18-2023 Platelets LM Ql (Bld) ADEQUATE ADEQ [facility] Blood platelet mean volumeOr dered By: Lucy Quick on 01-18-2023 Platelet mean volume (Bld) [Entitic vol] 9.6 fL 6.2-12.0 [facility] Blood segmented neutrophils/ 100 leukocytesOrdered By: Lucy Quick on 01-18-2023 Segmented neutrophils/100 WBC (Bld) 54 % 47-70 [facility] Determination of erythrocyte mean corpuscular volume (MCV)Ordered By: Lucy Quick on 01-18-2023 MCV (RBC) [Entitic vol] 94.6 fL 81-99 [facility] Hematocrit Auto (Bld) [Volum e fraction]Ordered By: Lucy Quick on 01-18-2023 Hematocrit (Bld) [Volume fraction] 30.0 % 37-47 [facility] Laboratory - Hematology and Cell countsOrdered By: Lucy Quick on 01-18-2023 Erythrocyte distribution width (RBC) [Entitic vol] 55.1 fL 35.1-43.9 [facility] Erythrocyte distribution width (RBC) [Ratio] 15.9 % 11.6-14.6 [facility] MCH (RBC) [Entitic mass] 28.1 pg 27.0-32.0 [facility] MCHC Auto (RBC) [Mass/Vol]Or dered By: Lucy Quick on 01-18-2023 MCHC (RBC) [Mass/Vol] 29.7 g/dL 32-36 [facility] No Panel InformationOrdered By: Lucy Quick on 01-18-2023 Plasma Cells % (manual) 1 % [facility] Platelets bldOrdered By: Pet er Dustin on 01-18-2023 Platelets (Bld) [#/Vol] 236 10*3/uL 150-450 [facility] RBC morphologyOrdered By: Jemal Campos on 01-18-2023 RBC morphology finding Nom (Bld) NORM C+C NORMAL NORM C&C [facility] Review by pathologistOrdered By: Lucy Quick on 01-18-2023 Pathologist review Anselmo (Unsp spec) [Interp] Reviewed [facility] Comment on above: Previous reported re sult: Carol johnson Edited by: RGOOD on 01/19/23:0936Neutrophilic left shift.Normocytic anemia.Clinical correlation necessary.Gene Fountain M.D. 01/19/23 AMENDED REPORT 01/19/23 0936 PATH REV previously reported as: Carol johnson Total cell countOrdered By: Lucy Quick on 01-18-2023 Cells counted Molgen (Bld/Tiss) [#] [address] [facility] Basophil percentageOrdered B y: Lucy Quick on 01-17-2023 Chloride [Moles/Vol] 106 mmol/L 98-107 [facility] Glucose [Mass/Vol] 131 mg/dL 74-106 [facility] Comment on above: Fasting Glucose resu lt greater than or equal to 126 mg/dL suggests DIABETES MELLITUS per A.D.A. criteria. Potassium [Moles/Vol] 4.7 mmol/L 3.5-5.1 [facility] Sodium [Moles/Vol] 142 mmol/L 136-145 [facility] CNPNon 01-17-2023 CNPN Normal [facility] CNPTOUTREACHon 01-17-2023 CNPTOUTREACH Normal [facility] Laboratory - Chemistry and C hemistry - challengeOrdered By: Lucy Quick on 01-17-2023 CO2 [Moles/Vol] 28.0 mmol/L 21.0-32.0 [facility] Urea nitrogen/Creatinine [Mass ratio] 18.0 mg/mg 10-20 [facility] No Panel InformationOrdered By: Lucy Quick on 01-17-2023 Estimated GFR (MDRD) Amer 51 mL/min >60 [facility] Comment on above: GFR Calc Estimated GFR (MDRD) Non-Af Amer 43 mL/min >60 [facility] Comment on above: Non- GFR Calc Serum or plasma calcium catracho urement (mass/volume)Ordered By: Lucy Quick on 01-17-2023 Calcium [Mass/Vol] 8.6 mg/dL 8.5-10.1 [facility] Serum or plasma creatinine m easurement (mass/volume)Ordered By: Lucy Quick on 01-17-2023 Creatinine [Mass/Vol] 1.33 mg/dL 0.55-1.02 [facility] Comment on above: The validity of the calculated GFR & GFRAA in patients over 70 years has not been determined. Clinical correlation is essential. Serum or plasma urea nitroge n measurement (mass/volume)Ordered By: Lucy Quick on 01-17-2023 Urea nitrogen [Mass/Vol] 24 mg/dL 7-18 [facility] Thin prep Papanicolaou smear with manual screeningOrdered By: Lucy Quick on 01-17-2023 Thin prep Papanicolaou smear with manual screening 8 5-15 [facility] CASE MANAGEMon 01-16-2023 CASE MANAGEM Normal [facility] CBC panel Auto (Bld)on 01-16 Erythrocyte distribution width (RBC) [Ratio] 15.9 % High 11.5-15.0 [facility] Comment on above: Order Comment: Speci men Type: BLOOD SPECIMENOrdering Facility: [facility] Address: [place] [address] Performed By: #### 5 8410-2 ####[facility] LABORATORYCLIA [id number] [place] [address] [place] Hematocrit (Bld) [Volume fraction] 29.9 % Low 36.0-46.0 [facility] Comment on above: Order Comment: Speci men Type: BLOOD SPECIMENOrdering Facility: [facility] Address: [address] [place] [address] Performed By: #### 5 8410-2 ####[facility] LABORATORYCLIA [id number] [address] STATES OF [facility] Hemoglobin (Bld) [Mass/Vol] 8.9 g/dL Low 11.5-15.5 [facility] Comment on above: Order Comment: Speci men Type: BLOOD SPECIMENOrdering Facility: [facility] Address: [address] [place] [address] Performed By: #### 5 8410-2 ####[facility] LABORATORYCLIA [id number] [address] OF [facility] MCH (RBC) [Entitic mass] 28.3 pg Normal 26.0-34.0 [facility] Comment on above: Order Comment: Speci men Type: BLOOD SPECIMENOrdering Facility: [facility] Address: [address] [place] [address] Performed By: #### 5 8410-2 ####[facility] LABORATORYCLIA [id number] [address] MCHC (RBC) [Mass/Vol] 29.8 g/dL Low 30.5-36.0 [facility] Comment on above: Order Comment: Speci men Type: BLOOD SPECIMENOrdering Facility: [facility] Address: [address] [place] [address] Performed By: #### 5 8410-2 ####[facility] LABORATORYCLIA [id number] [address] [place] MCV (RBC) [Entitic vol] 95.2 fL Normal 80.0-100.0 [facility] Comment on above: Order Comment: Speci men Type: BLOOD SPECIMENOrdering Facility: [facility] Address: [address] [place] [address] Performed By: #### 5 8410-2 ####[facility] LABORATORYCLIA [id number] [place] [address] [place] Nucleated RBC (Bld) [#/Vol] 10*3/uL Normal <0.01 [facility] Comment on above: Order Comment: Speci men Type: BLOOD SPECIMENOrdering Facility: [facility] Address: [address] [place] [address] Performed By: #### 5 8410-2 ####[facility] LABORATORYCLIA [id number] [place] [address] [place] Platelet mean volume (Bld) [Entitic vol] 8.8 fL Low 9.0-12.7 [facility] Comment on above: Order Comment: Speci men Type: BLOOD SPECIMENOrdering Facility: [facility] Address: [address] [place] [address] Performed By: #### 5 8410-2 ####[facility] LABORATORYCLIA [id number] [address] [place] Platelets (Bld) [#/Vol] 253 10*3/uL Normal 150-400 [facility] Comment on above: Order Comment: Speci men Type: BLOOD SPECIMENOrdering Facility: [facility] Address: [address] [place] [address] Performed By: #### 5 8410-2 ####[facility] LABORATORYCLIA [id number] [place] [address] [place] RBC (Bld) [#/Vol] 3.14 10*6/uL Low 3.90-5.20 [facility] Comment on above: Order Comment: Speci men Type: BLOOD SPECIMENOrdering Facility: [facility] Address: [address] [place] [address] Performed By: #### 5 8410-2 ####[facility] LABORATORYCLIA [id number] [address] [place] WBC (Bld) [#/Vol] 6.92 10*3/uL Normal 3.70-11.00 [facility] Comment on above: Order Comment: Speci men Type: BLOOD SPECIMENOrdering Facility: [facility] Address: [address] [address] Performed By: #### 5 8410-2 ####[facility] LABORATORYCLIA [id number] [place] [address] [place] CNDSon 01-16-2023 CNDS Normal [facility] Renal function 2000 panelon 01-16-2023 Albumin [Mass/Vol] 2.6 g/dL Low 3.9-4.9 [facility] Comment on above: Order Comment: Speci men Type: BLOOD SPECIMENOrdering Facility: [facility] Address: [address] [place] [address] Performed By: #### 2 4362-6 ####[facility] LABORATORYCLIA [id number] [place] [address] [place] Anion gap [Moles/Vol] 7 mmol/L Low 9-18 [facility] Comment on above: Order Comment: Speci men Type: BLOOD SPECIMENOrdering Facility: [facility] Address: [address] [place] [address] Performed By: #### 2 4362-6 ####[facility] LABORATORYCLIA [id number] [place] [address] [place] Calcium [Mass/Vol] 8.2 mg/dL Low 8.5-10.2 [facility] Comment on above: Order Comment: Speci men Type: BLOOD SPECIMENOrdering Facility: [facility] Address: [address] [place] [address] Performed By: #### 2 4362-6 ####[facility] LABORATORYCLIA [id number] [place] [address] [place] Chloride [Moles/Vol] 101 mmol/L Normal 97-105 [facility] Comment on above: Order Comment: Speci men Type: BLOOD SPECIMENOrdering Facility: [facility] Address: [address] [place] [address] Performed By: #### 2 4362-6 ####[facility] LABORATORYCLIA [id number] [address] CO2 [Moles/Vol] 32 mmol/L High 22-30 [facility] Comment on above: Order Comment: Speci men Type: BLOOD SPECIMENOrdering Facility: [facility] Address: [address] [address] Performed By: #### 2 4362-6 ####[facility] LABORATORYCLIA [id number] [address] OF [facility] Creatinine [Mass/Vol] 1.04 mg/dL High 0.58-0.96 [facility] Comment on above: Order Comment: Speci men Type: BLOOD SPECIMENOrdering Facility: [facility] Address: [address] [place] [address] Performed By: #### 2 4362-6 ####[facility] LABORATORYCLIA [id number] [address] ESTIMATED GLOMERULAR FILTRATION RATE 60 mL/min/1.73m??? Normal >=60 [facility] Comment on above: Order Comment: Speci men Type: BLOOD SPECIMENOrdering Facility: [facility] Address: [address] [place] [address] Result Comment: Petra mated Glomerular Filtration Rate [...] actual GFR. Performed By: #### 2 4362-6 ####[facility]ORATORYCLIA [id number] [address] [place] Glucose [Mass/Vol] 222 mg/dL High 74-99 [facility] Comment on above: Order Comment: Speci men Type: BLOOD SPECIMENOrdering Facility: [facility] Address: [address] [place] [address] Result Comment: The [place] [employer] (ADA) provides guidance for cutoff [...] Standards of Medical Care in Diabetes 2016, [place] [employer]. Diabetes Care. 2016.39(Suppl 1). Performed By: #### 2 4362-6 ####[facility]ATORYCLIA [id number] [place] [address] [place] Phosphate [Mass/Vol] 2.5 mg/dL Low 2.7-4.8 [facility] Comment on above: Order Comment: Spectalia men Type: BLOOD SPECIMENOrdering Facility: [facility] Address: [address] [place] [address] Performed By: #### 2 4362-6 ####[facility]ATORYCLIA [id number] [place] [address] [place] Potassium [Moles/Vol] 4.0 mmol/L Normal 3.7-5.1 [facility] Comment on above: Order Comment: Scott seals Type: BLOOD SPECIMENOrdering Facility: [facility] Address: [address] [place] [address] Performed By: #### 2 4362-6 ####[facility]ATORYCLIA [id number] [place] [address] [place] Sodium [Moles/Vol] 140 mmol/L Normal 136-144 [facility] Comment on above: Order Comment: Speci men Type: BLOOD SPECIMENOrdering Facility: [facility] Address: [address] [place] [address] Performed By: #### 2 4362-6 ####[facility]ORATORYCLIA [id number] [place] [address] [place] Urea nitrogen [Mass/Vol] 25 mg/dL High 7-21 [facility] Comment on above: Order Comment: Speci men Type: BLOOD SPECIMENOrdering Facility: [facility] Address: [address] [place] [address] Performed By: #### 2 4362-6 ####[facility]ORATORYCLIA [id number] [address] [place] CASE MGT INIT ASSESon 2022 CASE MGT INIT ASSES Normal [facility] CBC panel Auto (Bld)on 01-15 Erythrocyte distribution width (RBC) [Ratio] 16.4 % High 11.5-15.0 [facility] Comment on above: Order Comment: Speci men Type: BLOOD SPECIMENOrdering Facility: [facility] Address: [address] [place] [address] Performed By: #### 5 8410-2 ####[facility]ATORYCLIA [id number] [address] STATES OF [facility] Hematocrit (Bld) [Volume fraction] 30.0 % Low 36.0-46.0 [facility] Comment on above: Order Comment: Speci men Type: BLOOD SPECIMENOrdering Facility: [facility] Address: [address] [place] [address] Performed By: #### 5 8410-2 ####[facility]ATORYCLIA [id number] [address] [place] Hemoglobin (Bld) [Mass/Vol] 8.6 g/dL Low 11.5-15.5 [facility] Comment on above: Order Comment: Speci men Type: BLOOD SPECIMENOrdering Facility: [facility] Address: [address] [place] [address] Performed By: #### 5 8410-2 ####[facility]ATORYCLIA [id number] [address] [place] MCH (RBC) [Entitic mass] 28.0 pg Normal 26.0-34.0 [facility] Comment on above: Order Comment: Speci men Type: BLOOD SPECIMENOrdering Facility: [facility] Address: [address] [address] Performed By: #### 5 8410-2 ####[facility]ATORYCLIA [id number] [address] MCHC (RBC) [Mass/Vol] 28.7 g/dL Low 30.5-36.0 [facility] Comment on above: Order Comment: Speci men Type: BLOOD SPECIMENOrdering Facility: [facility] Address: [address] [address] Performed By: #### 5 8410-2 ####[facility]ATORYCLIA [id number] [address] MCV (RBC) [Entitic vol] 97.7 fL Normal 80.0-100.0 [facility] Comment on above: Order Comment: Speci men Type: BLOOD SPECIMENOrdering Facility: [facility] Address: [address] [place] [address] Performed By: #### 5 8410-2 ####[facility]ATORYCLIA [id number] [address] Nucleated RBC (Bld) [#/Vol] 10*3/uL Normal <0.01 [facility] Comment on above: Order Comment: Speci men Type: BLOOD SPECIMENOrdering Facility: [facility] Address: [address] [place] [address] Performed By: #### 5 8410-2 ####[facility]ATORYCLIA [id number] [address] Platelet mean volume (Bld) [Entitic vol] 8.6 fL Low 9.0-12.7 [facility] Comment on above: Order Comment: Speci men Type: BLOOD SPECIMENOrdering Facility: [facility] Address: [address] [place] [address] Performed By: #### 5 8410-2 ####[facility]ATORYCLIA [id number] [address] Platelets (Bld) [#/Vol] 243 10*3/uL Normal 150-400 [facility] Comment on above: Order Comment: Speci men Type: BLOOD SPECIMENOrdering Facility: [facility] Address: [address] [place] [address] Performed By: #### 5 8410-2 ####[facility]ATORYCLIA [id number] [address] [place] RBC (Bld) [#/Vol] 3.07 10*6/uL Low 3.90-5.20 [facility] Comment on above: Order Comment: Speci men Type: BLOOD SPECIMENOrdering Facility: [facility] Address: [address] [place] [address] Performed By: #### 5 8410-2 ####[facility]ATORYCLIA [id number] [address] WBC (Bld) [#/Vol] 6.50 10*3/uL Normal 3.70-11.00 [facility] Comment on above: Order Comment: Speci men Type: BLOOD SPECIMENOrdering Facility: [facility] Address: [address] [place] [address] Performed By: #### 5 8410-2 ####[facility]ORATORYCLIA [id number] [address] CNPNon 01-15-2023 CNPN Normal [facility] CNPTOUTREACHon 01-15-2023 CNPTOUTREACH Normal [facility] CONSULT PROGon 01-15-2023 CONSULT PROG Normal [facility] Renal function 2000 panelon 01-15-2023 Albumin [Mass/Vol] 2.6 g/dL Low 3.9-4.9 [facility] Comment on above: Order Comment: Speci men Type: BLOOD SPECIMENOrdering Facility: [facility] Address: [address] [place] [address] Performed By: #### 2 4362-6 ####[facility]ORATORYCLIA [id number] [address] Anion gap [Moles/Vol] 7 mmol/L Low 9-18 [facility] Comment on above: Order Comment: Speci men Type: BLOOD SPECIMENOrdering Facility: [facility] Address: [address] [place] [address] Performed By: #### 2 4362-6 ####[facility] LABORATORYCLIA [id number] [place] [address] [place] Calcium [Mass/Vol] 8.4 mg/dL Low 8.5-10.2 [facility] Comment on above: Order Comment: Speci men Type: BLOOD SPECIMENOrdering Facility: [facility] Address: [address] [place] [address] Performed By: #### 2 4362-6 ####[facility]ORATORYCLIA [id number] [place] [address] [place] Chloride [Moles/Vol] 101 mmol/L Normal 97-105 [facility] Comment on above: Order Comment: Speci men Type: BLOOD SPECIMENOrdering Facility: [facility] Address: [address] [place] [address] Performed By: #### 2 4362-6 ####[facility]ORATORYCLIA [id number] [place] [address] [place] CO2 [Moles/Vol] 32 mmol/L High 22-30 [facility] Comment on above: Order Comment: Speci men Type: BLOOD SPECIMENOrdering Facility: [facility] Address: [address] [place] [address] Performed By: #### 2 4362-6 ####[facility]ORATORYCLIA [id number] [place] [address] [place] Creatinine [Mass/Vol] 1.34 mg/dL High 0.58-0.96 [facility] Comment on above: Order Comment: Speci men Type: BLOOD SPECIMENOrdering Facility: [facility] Address: [address] [place] [address] Performed By: #### 2 4362-6 ####[facility] LABORATORYCLIA [id number] [place] [address] [place] ESTIMATED GLOMERULAR FILTRATION RATE 44 mL/min/1.73m??? Low >=60 [facility] Comment on above: Order Comment: Scott seals Type: BLOOD SPECIMENOrdering Facility: [facility] Address: [address] [place] [address] Result Comment: Petra mated Glomerular Filtration Rate [...] actual GFR. Performed By: #### 2 4362-6 ####[facility]ATORYCLIA [id number] [place] [address] [place] Glucose [Mass/Vol] 272 mg/dL High 74-99 [facility] Comment on above: Order Comment: Scott seals Type: BLOOD SPECIMENOrdering Facility: [facility] Address: [address] [place] [address] Result Comment: The [place] [employer] (ADA) provides guidance for cutoff [...] Standards of Medical Care in Diabetes 2016, [place] [employer]. Diabetes Care. 2016.39(Suppl 1). Performed By: #### 2 4362-6 ####[facility]ORATORYCLIA [id number] [place] [id number] [place] Phosphate [Mass/Vol] 3.0 mg/dL Normal 2.7-4.8 [facility] Comment on above: Order Comment: Scott seals Type: BLOOD SPECIMENOrdering Facility: [facility] Address: [address] [place] [address] Performed By: #### 2 4362-6 ####[facility]ORATORYCLIA [id number] [address] STATES OF [facility] Potassium [Moles/Vol] 4.1 mmol/L Normal 3.7-5.1 [facility] Comment on above: Order Comment: Speci men Type: BLOOD SPECIMENOrdering Facility: [facility] Address: [address] [place] [address] Performed By: #### 2 4362-6 ####[facility]ORATORYCLIA [id number] [address] OF [facility] Sodium [Moles/Vol] 140 mmol/L Normal 136-144 [facility] Comment on above: Order Comment: Speci men Type: BLOOD SPECIMENOrdering Facility: [facility] Address: [address] [place] [address] Performed By: #### 2 4362-6 ####[facility]ATORYCLIA [id number] [address] OF [facility] Urea nitrogen [Mass/Vol] 29 mg/dL High 7-21 [facility] Comment on above: Order Comment: Speci men Type: BLOOD SPECIMENOrdering Facility: [facility] Address: [address] [place] [address] Performed By: #### 2 4362-6 ####[facility]ORATORYCLIA [id number] [address] [place] THERAPY NTon 01-15-2023 THERAPY NT Normal [facility] THERAPY NT Normal [facility] Ammonia Plas-sCncon 01-15-20 23 Ammonia (P) [Moles/Vol] 20 umol/L Normal 11-51 [facility] Comment on above: Order Comment: Speci men Type: BLOOD SPECIMENOrdering Facility: [facility] Address: [address] [place] [address] Performed By: #### 1 6362-6 ####[facility]ORATORYCLIA [id number] [address] CBC panel Auto (Bld)on 01-14 Erythrocyte distribution width (RBC) [Ratio] 16.3 % High 11.5-15.0 [facility] Comment on above: Order Comment: Speci men Type: BLOOD SPECIMENOrdering Facility: [facility] Address: [address] [place] [address] Performed By: #### 5 8410-2 ####[facility]ORATORYCLIA [id number] [address] Hematocrit (Bld) [Volume fraction] 32.5 % Low 36.0-46.0 [facility] Comment on above: Order Comment: Speci men Type: BLOOD SPECIMENOrdering Facility: [facility] Address: [address] [place] [address] Performed By: #### 5 8410-2 ####[facility]ATORYCLIA [id number] [address] Hemoglobin (Bld) [Mass/Vol] 9.4 g/dL Low 11.5-15.5 [facility] Comment on above: Order Comment: Speci men Type: BLOOD SPECIMENOrdering Facility: [facility] Address: [address] [place] [address] Performed By: #### 5 8410-2 ####[facility]ORATORYCLIA [id number] [address] MCH (RBC) [Entitic mass] 28.0 pg Normal 26.0-34.0 [facility] Comment on above: Order Comment: Speci men Type: BLOOD SPECIMENOrdering Facility: [facility] Address: [address] [place] [address] Performed By: #### 5 8410-2 ####[facility]ORATORYCLIA [id number] [address] [place] MCHC (RBC) [Mass/Vol] 28.9 g/dL Low 30.5-36.0 [facility] Comment on above: Order Comment: Speci men Type: BLOOD SPECIMENOrdering Facility: [facility] Address: [address] [place] [address] Performed By: #### 5 8410-2 ####[facility]ATORYCLIA [id number] [address] MCV (RBC) [Entitic vol] 96.7 fL Normal 80.0-100.0 [facility] Comment on above: Order Comment: Speci men Type: BLOOD SPECIMENOrdering Facility: [facility] Address: [address] [place] [address] Performed By: #### 5 8410-2 ####[facility]ORATORYCLIA [id number] [address] Nucleated RBC (Bld) [#/Vol] 10*3/uL Normal <0.01 [facility] Comment on above: Order Comment: Speci men Type: BLOOD SPECIMENOrdering Facility: [facility] Address: [address] [place] [address] Performed By: #### 5 8410-2 ####[facility]ATORYCLIA [id number] [address] Platelet mean volume (Bld) [Entitic vol] 8.5 fL Low 9.0-12.7 [facility] Comment on above: Order Comment: Speci men Type: BLOOD SPECIMENOrdering Facility: [facility] Address: [address] [place] [address] Performed By: #### 5 8410-2 ####[facility]ATORYCLIA [id number] [address] Platelets (Bld) [#/Vol] 255 10*3/uL Normal 150-400 [facility] Comment on above: Order Comment: Speci men Type: BLOOD SPECIMENOrdering Facility: [facility] Address: [address] [place] [address] Performed By: #### 5 8410-2 ####[facility]ORATORYCLIA [id number] [address] RBC (Bld) [#/Vol] 3.36 10*6/uL Low 3.90-5.20 [facility] Comment on above: Order Comment: Speci men Type: BLOOD SPECIMENOrdering Facility: [facility] Address: [address] [place] [address] Performed By: #### 5 8410-2 ####[facility]ATORYCLIA [id number] [place] [address] [place] WBC (Bld) [#/Vol] 5.12 10*3/uL Normal 3.70-11.00 [facility] Comment on above: Order Comment: Speci men Type: BLOOD SPECIMENOrdering Facility: [facility] Address: [address] [place] [address] Performed By: #### 5 8410-2 ####[facility]ATORYCLIA [id number] [address] Gas and Carbon monoxide pane l (BldV)on 01-14-2023 Base excess Calc (BldV) [Moles/Vol] 7 mmol/L High 0-2 [facility] Comment on above: Order Comment: Speci men Type: VENOUS BLOOD SPECIMENOrdering Facility: [facility] Address: [address] [place] [address] Performed By: #### 2 4344-4 ####[facility]ORATORYCLIA [id number] [address] STATES OF [facility] Body temperature 98.6 [degF] Normal [facility] Comment on above: Order Comment: Speci men Type: VENOUS BLOOD SPECIMENOrdering Facility: [facility] Address: [address] [place] [address] Performed By: #### 2 4344-4 ####[facility]ATORYCLIA [id number] [address] Calcium.ionized (BldV) [Mass/Vol] 1.10 mmol/L Normal 1.08-1.30 [facility] Comment on above: Order Comment: Speci men Type: VENOUS BLOOD SPECIMENOrdering Facility: [facility] Address: [address] [address] Performed By: #### 2 4344-4 ####[facility]ORATORYCLIA [id number] [address] Calcium.ionized adjusted to pH 7.4 (BldA) [Moles/Vol] 1.09 mmol/L Normal 1.08-1.30 [facility] Comment on above: Order Comment: Speci men Type: VENOUS BLOOD SPECIMENOrdering Facility: [facility] Address: [address] [place] [address] Performed By: #### 2 4344-4 ####[facility]ATORYCLIA [id number] [address] OF [facility] Carboxyhemoglobin (BldV) [Mass fraction] <1.0 Normal 0.0-2.0 [facility] Comment on above: Order Comment: Speci men Type: VENOUS BLOOD SPECIMENOrdering Facility: [facility] Address: [address] [place] [address] Result Comment: Carb oxyhemoglobin Reference Range for Smokers: 2.0-8.0% Performed By: #### 2 4344-4 ####[facility]ATORYCLIA [id number] [address] STATES OF [facility] Chloride [Moles/Vol] 104 mmol/L Normal 102-109 [facility] Comment on above: Order Comment: Speci men Type: VENOUS BLOOD SPECIMENOrdering Facility: [facility] Address: [address] [place] [address] Performed By: #### 2 4344-4 ####[facility]ATORYCLIA [id number] [address] [place] CO2 (BldV) [Partial pressure] 58 mm[Hg] High 42-55 [facility] Comment on above: Order Comment: Speci men Type: VENOUS BLOOD SPECIMENOrdering Facility: [facility] Address: [address] [place] [address] Performed By: #### 2 4344-4 ####[facility]ORATORYCLIA [id number] [place] [address] [place] CO2 [Moles/Vol] 31 mmol/L High 25-29 [facility] Comment on above: Order Comment: Speci men Type: VENOUS BLOOD SPECIMENOrdering Facility: [facility] Address: [address] [address] Performed By: #### 2 4344-4 ####[facility]ORATORYCLIA [id number] [place] [address] [place] Glucose [Mass/Vol] 149 mg/dL High 60-105 [facility] Comment on above: Order Comment: Speci men Type: VENOUS BLOOD SPECIMENOrdering Facility: [facility] Address: [address] [address] Performed By: #### 2 4344-4 ####[facility]ATORYCLIA [id number] [place] [address] [place] HCO3 (Bld) [Moles/Vol] 33 mmol/L High 24-28 [facility] Comment on above: Order Comment: Speci men Type: VENOUS BLOOD SPECIMENOrdering Facility: [facility] Address: [address] [place] [address] Performed By: #### 2 4344-4 ####[facility]ORATORYCLIA [id number] [place] [address] [place] Hematocrit (Bld) [Volume fraction] 28.0 % Low 36.0-46.0 [facility] Comment on above: Order Comment: Speci men Type: VENOUS BLOOD SPECIMENOrdering Facility: [facility] Address: [address] [address] Performed By: #### 2 4344-4 ####[facility]ATORYCLIA [id number] [place] [address] [place] Hemoglobin (Bld) [Mass/Vol] 9.0 g/dL Low 11.5-15.5 [facility] Comment on above: Order Comment: Speci men Type: VENOUS BLOOD SPECIMENOrdering Facility: [facility] Address: [address] [place], [place] [address] Performed By: #### 2 4344-4 ####[facility]ORATORYCLIA [id number] [address] [place] Lactate [Moles/Vol] 1.2 mmol/L Normal 0.5-2.2 [facility] Comment on above: Order Comment: Speci men Type: VENOUS BLOOD SPECIMENOrdering Facility: [facility] Address: [address] [place] [address] Performed By: #### 2 4344-4 ####[facility]ORATORYCLIA [id number] [address] [place] Methemoglobin (Bld) [Mass fraction] % Normal 0.0-1.5 [facility] Comment on above: Order Comment: Speci men Type: VENOUS BLOOD SPECIMENOrdering Facility: [facility] Address: [address] [place] [address] Performed By: #### 2 4344-4 ####[facility]ORATORYCLIA [id number] [address] [place] O2 THERAPY NC = Nasal Cannula Normal [facility] Comment on above: Order Comment: Speci men Type: VENOUS BLOOD SPECIMENOrdering Facility: [facility] Address: [address] [place] [address] Result Comment: 4L Performed By: #### 2 4344-4 ####[facility]ATORYCLIA [id number] [address] [place] Oxygen (BldV) [Partial pressure] 112 mm[Hg] High 35-45 [facility] Comment on above: Order Comment: Speci men Type: VENOUS BLOOD SPECIMENOrdering Facility: [facility] Address: [address] [place] [address] Performed By: #### 2 4344-4 ####[facility]ORATORYCLIA [id number] [address] [place] Oxygen saturation in Venous blood 96 % High 60-85 [facility] Comment on above: Order Comment: Speci men Type: VENOUS BLOOD SPECIMENOrdering Facility: [facility] Address: [address] [address] Performed By: #### 2 4344-4 ####[facility]ATORYCLIA [id number] [address] Oxyhemoglobin (BldV) [Mass fraction] 95 % High 60-85 [facility] Comment on above: Order Comment: Speci men Type: VENOUS BLOOD SPECIMENOrdering Facility: [facility] Address: [address] [address] Performed By: #### 2 4344-4 ####[facility]ATORYCLIA [id number] [address] [place] pH (BldV) 7.37 [pH] Normal 7.32-7.42 [facility] Comment on above: Order Comment: Speci men Type: VENOUS BLOOD SPECIMENOrdering Facility: [facility] Address: [address] [place] [address] Performed By: #### 2 4344-4 ####[facility]ORATORYCLIA [id number] [address] [place] Potassium [Moles/Vol] 3.5 mmol/L Normal 3.5-5.0 [facility] Comment on above: Order Comment: Speci men Type: VENOUS BLOOD SPECIMENOrdering Facility: [facility] Address: [address] [place] [address] Performed By: #### 2 4344-4 ####[facility]ORATORYCLIA [id number] [address] [place] Sodium [Moles/Vol] 140 mmol/L Normal 136-144 [facility] Comment on above: Order Comment: Speci men Type: VENOUS BLOOD SPECIMENOrdering Facility: [facility] Address: [address] [place] [address] Performed By: #### 2 4344-4 ####[facility]ORATORYCLIA [id number] [place] [address] [place] Renal function 2000 panelon 01-14-2023 Albumin [Mass/Vol] 2.9 g/dL Low 3.9-4.9 [facility] Comment on above: Order Comment: Speci men Type: BLOOD SPECIMENOrdering Facility: [facility] Address: [address] [place] [address] Performed By: #### 2 4362-6 ####[facility]ATORYCLIA [id number] [place] [address] [place] Anion gap [Moles/Vol] 6 mmol/L Low 9-18 [facility] Comment on above: Order Comment: Speci men Type: BLOOD SPECIMENOrdering Facility: [facility] Address: [address] [place] [address] Performed By: #### 2 4362-6 ####[facility] LABORATORYCLIA [id number] [place] [address] [place] Calcium [Mass/Vol] 8.8 mg/dL Normal 8.5-10.2 [facility] Comment on above: Order Comment: Speci men Type: BLOOD SPECIMENOrdering Facility: [facility] Address: [address] [place] [address] Performed By: #### 2 4362-6 ####[facility] LABORATORYCLIA [id number] [place] [address] [place] Chloride [Moles/Vol] 102 mmol/L Normal 97-105 [facility] Comment on above: Order Comment: Speci men Type: BLOOD SPECIMENOrdering Facility: [facility] Address: [address] [place] [address] Performed By: #### 2 4362-6 ####[facility] LABORATORYCLIA [id number] [place] [address] [place] CO2 [Moles/Vol] 35 mmol/L High 22-30 [facility] [facility] Comment on above: Order Comment: Speci men Type: BLOOD SPECIMENOrdering Facility: [facility] Address: [address] [place] [address] Performed By: #### 2 4362-6 ####[facility] LABORATORYCLIA [id number] [place] [address] [place] Creatinine [Mass/Vol] 1.25 mg/dL High 0.58-0.96 [facility] Comment on above: Order Comment: Luhtalia seals Type: BLOOD SPECIMENOrdering Facility: [facility] Address: [address] [place] [id number] Performed By: #### 2 4362-6 ####[facility] LABORATORYCLIA [id number] [address] ESTIMATED GLOMERULAR FILTRATION RATE 48 mL/min/1.73m??? Low >=60 [facility] Comment on above: Order Comment: Scott bozena Type: BLOOD SPECIMENOrdering Facility: [facility] Address: [address] [place] [address] Result Comment: Petra mated Glomerular Filtration Rate [...] Performed By: #### 2 4362-6 ####[facility] LABORATORYCLIA [id number] [address] Glucose [Mass/Vol] 96 mg/dL Normal 74-99 [facility] Comment on above: Order Comment: Luhtalia seals Type: BLOOD SPECIMENOrdering Facility: [facility] Address: [address] [place] [address] Result Comment: The [place] [employer] (ADA) provides guidance for cutoff [...] Standards of Medical Care in Diabetes 2016, [place] [employer]. Diabetes Care. 2016.39(Suppl 1). Performed By: #### 2 4362-6 ####[facility] LABORATORYCLIA [id number] [place] [address] [place] Phosphate [Mass/Vol] 2.9 mg/dL Normal 2.7-4.8 [facility] Comment on above: Order Comment: Speci men Type: BLOOD SPECIMENOrdering Facility: [facility] Address: [address] [place] [address] Performed By: #### 2 4362-6 ####[facility] LABORATORYCLIA [id number] [place] [address] [place] Potassium [Moles/Vol] 3.9 mmol/L Normal 3.7-5.1 [facility] Comment on above: Order Comment: Speci men Type: BLOOD SPECIMENOrdering Facility: [facility] Address: [address] [place] [address] Performed By: #### 2 4362-6 ####[facility] LABORATORYCLIA [id number] [place] [address] [place] Sodium [Moles/Vol] 143 mmol/L Normal 136-144 [facility] Comment on above: Order Comment: Speci men Type: BLOOD SPECIMENOrdering Facility: [facility] Address: [address] [place] [address] Performed By: #### 2 4362-6 ####[facility] LABORATORYCLIA [id number] [place] [id number] [place] Urea nitrogen [Mass/Vol] 24 mg/dL High 7-21 [facility] Comment on above: Order Comment: Speci men Type: BLOOD SPECIMENOrdering Facility: [facility] Address: [address] [place] [address] Performed By: #### 2 4362-6 ####[facility] LABORATORYCLIA [id number] [place] [address] [place] Basic metabolic 2000 panelon 01-13-2023 Anion gap [Moles/Vol] 9 mmol/L Normal 9-18 [facility] Comment on above: Order Comment: Speci men Type: BLOOD SPECIMENOrdering Facility: [facility] Address: [address] [place] [address] Performed By: #### 2 4320-2, ####[facility] LABORATORYCLIA [id number] [place] [address] [place] Calcium [Mass/Vol] 8.4 mg/dL Low 8.5-10.2 [facility] Comment on above: Order Comment: Speci men Type: BLOOD SPECIMENOrdering Facility: [facility] Address: [address] [place] [address] Performed By: #### 2 2, ####[facility] LABORATORYCLIA [id number] [place] [address] [place] Chloride [Moles/Vol] 100 mmol/L Normal 97-105 [facility] Comment on above: Order Comment: Speci men Type: BLOOD SPECIMENOrdering Facility: [facility] Address: [address] [place] [address] Performed By: #### 2 2, ####[facility]ORATORYCLIA [id number] [place] [address] [place] CO2 [Moles/Vol] 33 mmol/L High 22-30 [facility] Comment on above: Order Comment: Speci men Type: BLOOD SPECIMENOrdering Facility: [facility] Address: [address] [place] [address] Performed By: #### 2 2, ####[facility]ORATORYCLIA [id number] [place] [address] [place] Creatinine [Mass/Vol] 1.32 mg/dL High 0.58-0.96 [facility] Comment on above: Order Comment: Speci men Type: BLOOD SPECIMENOrdering Facility: [facility] Address: [address] [place] [address] Performed By: #### 2 4320-2, ####[facility]ORATORYCLIA [id number] [place] [address] [place] ESTIMATED GLOMERULAR FILTRATION RATE 45 mL/min/1.73m??? Low >=60 [facility] Comment on above: Order Comment: Scott seals Type: BLOOD SPECIMENOrdering Facility: [facility] Address: [address] [place] [address] Result Comment: Petra mated Glomerular Filtration Rate [...] actual GFR. Performed By: #### 2 4321-2, ####[facility] LABORATORYCLIA [id number] [place] [address] [place] Glucose [Mass/Vol] 149 mg/dL High 74-99 [facility] Comment on above: Order Comment: Scott seals Type: BLOOD SPECIMENOrdering Facility: [facility] Address: [address] [place] [address] Result Comment: The [place] Diabetes [employer] (ADA) provides guidance for cutoff [...] Standards of Medical Care in Diabetes 2016, [place] [employer]. Diabetes Care. 2016.39(Suppl 1). Performed By: #### 2 4321-2, ####[facility] LABORATORYCLIA [id number] [place] [address] [place] Potassium [Moles/Vol] 3.8 mmol/L Normal 3.7-5.1 [facility] Comment on above: Order Comment: Speci men Type: BLOOD SPECIMENOrdering Facility: [facility] Address: [address] [place] [address] Performed By: #### 2 4321-2, ####[facility] LABORATORYCLIA [id number] [address] Sodium [Moles/Vol] 142 mmol/L Normal 136-144 [facility] Comment on above: Order Comment: Speci men Type: BLOOD SPECIMENOrdering Facility: [facility] Address: [address] [place] [address] Performed By: #### 2 432-2, ####[facility] LABORATORYCLIA [id number] [address] STATES [facility] Urea nitrogen [Mass/Vol] 33 mg/dL High 7-21 [facility] Comment on above: Order Comment: Speci men Type: BLOOD SPECIMENOrdering Facility: [facility] Address: [address] [place] [address] Performed By: #### 2 4320-2, ####[facility] LABORATORYCLIA [id number] [address] OF [facility] CBC panel Auto (Bld)on 01-13 Erythrocyte distribution width (RBC) [Ratio] 16.1 % High 11.5-15.0 [facility] Comment on above: Order Comment: Speci men Type: BLOOD SPECIMENOrdering Facility: [facility] Address: [address] [place] [address] Performed By: #### 5 8410-2 ####[facility] LABORATORYCLIA [id number] [address] Hematocrit (Bld) [Volume fraction] 32.3 % Low 36.0-46.0 [facility] Comment on above: Order Comment: Speci men Type: BLOOD SPECIMENOrdering Facility: [facility] Address: [address] [place] [address] Performed By: #### 5 8410-2 ####[facility] LABORATORYCLIA [id number] [address] STATES OF [facility] Hemoglobin (Bld) [Mass/Vol] 9.5 g/dL Low 11.5-15.5 [facility] Comment on above: Order Comment: Speci men Type: BLOOD SPECIMENOrdering Facility: [facility] Address: [address] [place] [address] Performed By: #### 5 8410-2 ####[facility] LABORATORYCLIA [id number] [address] MCH (RBC) [Entitic mass] 28.1 pg Normal 26.0-34.0 [facility] Comment on above: Order Comment: Speci men Type: BLOOD SPECIMENOrdering Facility: [facility] Address: [address] [place] [address] Performed By: #### 5 8410-2 ####[facility] LABORATORYCLIA [id number] [address] MCHC (RBC) [Mass/Vol] 29.4 g/dL Low 30.5-36.0 [facility] Comment on above: Order Comment: Speci men Type: BLOOD SPECIMENOrdering Facility: [facility] Address: [address] [place] [address] Performed By: #### 5 8410-2 ####[facility] LABORATORYCLIA [id number] [address] MCV (RBC) [Entitic vol] 95.6 fL Normal 80.0-100.0 [facility] Comment on above: Order Comment: Speci men Type: BLOOD SPECIMENOrdering Facility: [facility] Address: [address] [place] [address] Performed By: #### 5 8410-2 ####[facility] LABORATORYCLIA [id number] [address] Nucleated RBC (Bld) [#/Vol] 0.02 10*3/uL High <0.01 [facility] Comment on above: Order Comment: Speci men Type: BLOOD SPECIMENOrdering Facility: [facility] Address: [address] [place] [address] Performed By: #### 5 8410-2 ####[facility] LABORATORYCLIA [id number] [address] STATES [facility] Platelet mean volume (Bld) [Entitic vol] 8.8 fL Low 9.0-12.7 [facility] Comment on above: Order Comment: Speci men Type: BLOOD SPECIMENOrdering Facility: [facility] Address: [address] [place] [address] Performed By: #### 5 8410-2 ####[facility] LABORATORYCLIA [id number] [address] [place] Platelets (Bld) [#/Vol] 288 10*3/uL Normal 150-400 [facility] Comment on above: Order Comment: Speci men Type: BLOOD SPECIMENOrdering Facility: [facility] Address: [address] [place] [address] Performed By: #### 5 8410-2 ####[facility] LABORATORYCLIA [id number] [place] [address] [place] RBC (Bld) [#/Vol] 3.38 10*6/uL Low 3.90-5.20 [facility] Comment on above: Order Comment: Speci men Type: BLOOD SPECIMENOrdering Facility: [facility] Address: [address] [place] [address] Performed By: #### 5 8410-2 ####[facility] LABORATORYCLIA [id number] [address] [place] WBC (Bld) [#/Vol] 6.38 10*3/uL Normal 3.70-11.00 [facility] Comment on above: Order Comment: Speci men Type: BLOOD SPECIMENOrdering Facility: [facility] Address: [address] [place] [address] Performed By: #### 5 8410-2 ####[facility] LABORATORYCLIA [id number] [address] OF [place] ED NOTEon 01-13-2023 ED NOTE HNO ID: [id number] Author: Nilsa Oneill RN Service: Emergency Medicine Author Type: Registered Nurse Type: ED Notes Filed: 01/13/2023 4:34 AM Note Text: Rc; ready to go up Normal [facility] ED NOTE HNO ID: [id number] Author: Nilsa Oneill RN Service: Emergency Medicine Author Type: Registered Nurse Type: ED Notes Filed: 01/13/2023 3:56 AM Note Text: 1x attempt at report Normal [facility] Magnesium SerPl-mCncon 01-13 Magnesium [Mass/Vol] 1.8 mg/dL Normal 1.7-2.3 [facility] Comment on above: Order Comment: Speci men Type: BLOOD SPECIMENOrdering Facility: [facility] Address: [address] [place] [address] Performed By: #### 2 4321-2, 73466-5 ####[facility] LABORATORYCLIA [id number] [address] [place] NURSING PROGon 01-13-2023 NURSING PROG Normal [facility] ALLIED HEALTHon 01-12-2023 ALLIED HEALTH Normal [facility] CBC W Auto Differential pane l (Bld)on 01-12-2023 Basophils (Bld) [#/Vol] 0.06 10*3/uL Normal <0.11 [facility] Comment on above: Order Comment: Speci men Type: BLOOD SPECIMENOrdering Facility: [facility] Address: [address] [place] [address] Performed By: #### 5 7021-8 ####[facility] LABORATORYCLIA [id number] [address] [place] Basophils/100 WBC (Bld) 0.7 % Normal A [facility] Comment on above: Order Comment: Speci men Type: BLOOD SPECIMENOrdering Facility: [facility] Address: [address] [place] [address] Performed By: #### 5 7021-8 ####[facility] LABORATORYCLIA [id number] [address] Differential cell count method Nom (Bld) Auto Normal [facility] Comment on above: Order Comment: Speci men Type: BLOOD SPECIMENOrdering Facility: [facility] Address: [address] [place] [address] Performed By: #### 5 7021-8 ####[facility] LABORATORYCLIA [id number] [address] [place] Eosinophils (Bld) [#/Vol] 0.17 10*3/uL Normal <0.46 [facility] Comment on above: Order Comment: Speci men Type: BLOOD SPECIMENOrdering Facility: [facility] Address: [address] [place] [address] Performed By: #### 5 7021-8 ####[facility] LABORATORYCLIA [id number] [address] Eosinophils/100 WBC (Bld) 2.0 % Normal [facility] Comment on above: Order Comment: Speci men Type: BLOOD SPECIMENOrdering Facility: [facility] Address: [address] [place] [address] Performed By: #### 5 7021-8 ####[facility] LABORATORYCLIA [id number] [address] Erythrocyte distribution width (RBC) [Ratio] 16.3 % High 11.5-15.0 [facility] Comment on above: Order Comment: Speci men Type: BLOOD SPECIMENOrdering Facility: [facility] Address: [address] [place] [address] Performed By: #### 5 7021-8 ####[facility] LABORATORYCLIA [id number] [address] Hematocrit (Bld) [Volume fraction] 30.1 % Low 36.0-46.0 [facility] Comment on above: Order Comment: Speci men Type: BLOOD SPECIMENOrdering Facility: [facility] Address: [address] [place] [address] Performed By: #### 5 7021-8 ####[facility]ORATORYCLIA [id number] [place] [address] [place] Hemoglobin (Bld) [Mass/Vol] 8.7 g/dL Low 11.5-15.5 [facility] Comment on above: Order Comment: Speci men Type: BLOOD SPECIMENOrdering Facility: [facility] Address: [address] [place] [address] Performed By: #### 5 7021-8 ####[facility] LABORATORYCLIA [id number] [place] [address] [place] Immature granulocytes (Bld) [#/Vol] 0.40 10*3/uL High <0.10 [facility] Comment on above: Order Comment: Speci men Type: BLOOD SPECIMENOrdering Facility: [facility] Address: [address] [place] [address] Performed By: #### 5 7021-8 ####[facility] LABORATORYCLIA [id number] [address] [place] Immature granulocytes/100 WBC (Bld) 4.7 % Normal [facility] Comment on above: Order Comment: Speci men Type: BLOOD SPECIMENOrdering Facility: [facility] Address: [address] [place] [address] Performed By: #### 5 7021-8 ####[facility] LABORATORYCLIA [id number] [address] [place] Lymphocytes (Bld) [#/Vol] 2.14 10*3/uL Normal 1.00-4.00 [facility] Comment on above: Order Comment: Speci men Type: BLOOD SPECIMENOrdering Facility: [facility] Address: [address] [place] [address] Performed By: #### 5 7021-8 ####[facility]ORATORYCLIA [id number] [address] [place] Lymphocytes/100 WBC (Bld) 25.1 % Normal [facility] Comment on above: Order Comment: Speci men Type: BLOOD SPECIMENOrdering Facility: [facility] Address: [address] [place] [address] Performed By: #### 5 7021-8 ####[facility] LABORATORYCLIA [id number] [address] MCH (RBC) [Entitic mass] 28.1 pg Normal 26.0-34.0 [facility] Comment on above: Order Comment: Speci men Type: BLOOD SPECIMENOrdering Facility: [facility] Address: [address] [address] Performed By: #### 5 7021-8 ####[facility] LABORATORYCLIA [id number] [address] MCHC (RBC) [Mass/Vol] 28.9 g/dL Low 30.5-36.0 [facility] Comment on above: Order Comment: Speci men Type: BLOOD SPECIMENOrdering Facility: [facility] Address: [address] [address] Performed By: #### 5 7021-8 ####[facility] LABORATORYCLIA [id number] [address] MCV (RBC) [Entitic vol] 97.1 fL Normal 80.0-100.0 [facility] Comment on above: Order Comment: Speci men Type: BLOOD SPECIMENOrdering Facility: [facility] Address: [address] [address] Performed By: #### 5 7021-8 ####[facility] LABORATORYCLIA [id number] [address] Monocytes (Bld) [#/Vol] 0.93 10*3/uL High <0.87 [facility] Comment on above: Order Comment: Speci men Type: BLOOD SPECIMENOrdering Facility: [facility] Address: [address] [place] [address] Performed By: #### 5 7021-8 ####[facility] LABORATORYCLIA [id number] [address] [place] Monocytes/100 WBC (Bld) 10.9 % Normal A [facility] Comment on above: Order Comment: Speci men Type: BLOOD SPECIMENOrdering Facility: [facility] Address: [address] [place] [address] Performed By: #### 5 7021-8 ####[facility] LABORATORYCLIA [id number] [place] [address] [place] Neutrophils (Bld) [#/Vol] 4.83 10*3/uL Normal 1.45-7.50 [facility] Comment on above: Order Comment: Speci men Type: BLOOD SPECIMENOrdering Facility: [facility] Address: [address] [place] [address] Performed By: #### 5 7021-8 ####[facility] LABORATORYCLIA [id number] [address] [place] Neutrophils/100 WBC (Bld) 56.6 % Normal [facility] Comment on above: Order Comment: Speci men Type: BLOOD SPECIMENOrdering Facility: [facility] Address: [address] [place] [address] Performed By: #### 5 7021-8 ####[facility] LABORATORYCLIA [id number] [place] [address] [place] Nucleated RBC (Bld) [#/Vol] 0.04 10*3/uL High <0.01 [facility] Comment on above: Order Comment: Speci men Type: BLOOD SPECIMENOrdering Facility: [facility] Address: [address] [place] [address] Performed By: #### 5 7021-8 ####[facility] LABORATORYCLIA [id number] [address] [place] Nucleated RBC/100 WBC (Bld) [Ratio] 0.5 /100 WBC Normal [facility] Comment on above: Order Comment: Speci men Type: BLOOD SPECIMENOrdering Facility: [facility] Address: [address] [place] [address] Performed By: #### 5 7021-8 ####[facility] LABORATORYCLIA [id number] [address] STATES [facility] Platelet mean volume (Bld) [Entitic vol] 8.8 fL Low 9.0-12.7 [facility] Comment on above: Order Comment: Speci men Type: BLOOD SPECIMENOrdering Facility: [facility] Address: [address] [place] [address] Performed By: #### 5 7021-8 ####[facility] LABORATORYCLIA [id number] [address] [place] Platelets (Bld) [#/Vol] 266 10*3/uL Normal 150-400 [facility] Comment on above: Order Comment: Speci men Type: BLOOD SPECIMENOrdering Facility: [facility] Address: [address] [place] [address] Performed By: #### 5 7021-8 ####[facility] LABORATORYCLIA [id number] [address] RBC (Bld) [#/Vol] 3.10 10*6/uL Low 3.90-5.20 [facility] Comment on above: Order Comment: Speci men Type: BLOOD SPECIMENOrdering Facility: [facility] Address: [address] [place] [address] Performed By: #### 5 7021-8 ####[facility] LABORATORYCLIA [id number] [address] [place] WBC (Bld) [#/Vol] 8.53 10*3/uL Normal 3.70-11.00 [facility] Comment on above: Order Comment: Speci men Type: BLOOD SPECIMENOrdering Facility: [facility] Address: [address] [place] [address] Performed By: #### 5 7021-8 ####[facility] LABORATORYCLIA [id number] [address] [place] Comprehensive metabolic 2000 panelon 01-12-2023 Albumin [Mass/Vol] 2.7 g/dL Low 3.9-4.9 [facility] Comment on above: Order Comment: Speci men Type: BLOOD SPECIMENOrdering Facility: [facility] Address: [address] [place] [address] Performed By: #### 2 4323-8, 60215-1, 22266-0 ####[facility] LABORATORYCLIA [id number] [address] OF [facility] ALP [Catalytic activity/Vol] 58 U/L Normal 34-123 [facility] Comment on above: Order Comment: Speci men Type: BLOOD SPECIMENOrdering Facility: [facility] Address: [address] [place] [address] Performed By: #### 2 4323-8, , 19301-2 ####[facility] LABORATORYCLIA [id number] [address] STATES OF [facility] ALT With P-5'-P [Catalytic activity/Vol] 14 U/L Normal 7-38 [facility] Comment on above: Order Comment: Speci men Type: BLOOD SPECIMENOrdering Facility: [facility] Address: [address] [place] [address] Performed By: #### 2 4323-8, , 61021-9 ####[facility] LABORATORYCLIA [id number] [address] Anion gap [Moles/Vol] 10 mmol/L Normal 9-18 [facility] Comment on above: Order Comment: Speci men Type: BLOOD SPECIMENOrdering Facility: [facility] Address: [address] [place] [address] Performed By: #### 2 4323-8, , 96498-6 ####[facility] LABORATORYCLIA [id number] [address] STATES OF [facility] AST With P-5'-P [Catalytic activity/Vol] 14 U/L Normal 13-35 [facility] Comment on above: Order Comment: Speci men Type: BLOOD SPECIMENOrdering Facility: [facility] Address: [address] [place] [address] Performed By: #### 2 4323-8, 08003-6, 21236-9 ####[facility]ORATORYCLIA [id number] [address] STATES OF [facility] Bilirubin [Mass/Vol] 0.3 mg/dL Normal 0.2-1.3 [facility] Comment on above: Order Comment: Speci men Type: BLOOD SPECIMENOrdering Facility: [facility] Address: [address] [place] [address] Performed By: #### 2 4323-8, 53826-8, 76833-9 ####[facility] LABORATORYCLIA [id number] [place] [address] [place] Calcium [Mass/Vol] 8.4 mg/dL Low 8.5-10.2 [facility] Comment on above: Order Comment: Speci men Type: BLOOD SPECIMENOrdering Facility: [facility] Address: [address] [place] [address] Performed By: #### 2 4323-8, , 51893-7 ####[facility] LABORATORYCLIA [id number] [place] [address] [place] Chloride [Moles/Vol] 100 mmol/L Normal 97-105 [facility] Comment on above: Order Comment: Speci men Type: BLOOD SPECIMENOrdering Facility: [facility] Address: [address] [place] [address] Performed By: #### 2 4323-8, 75478-0, 88855-9 ####[facility]ATORYCLIA [id number] [place] [address] [place] CO2 [Moles/Vol] 31 mmol/L High 22-30 [facility] Comment on above: Order Comment: Speci men Type: BLOOD SPECIMENOrdering Facility: [facility] Address: [address] [place] [address] Performed By: #### 2 4323-8, 50051-3, 46438-3 ####[facility]ORATORYCLIA [id number] [place] [address] [place] Creatinine [Mass/Vol] 1.41 mg/dL High 0.58-0.96 [facility] Comment on above: Order Comment: Scott seals Type: BLOOD SPECIMENOrdering Facility: [facility] Address: [address] [place] [address] Performed By: #### 2 4323-8, 86960-3, 00148-3 ####[facility]ATORYCLIA [id number] [place] [id number] [facility] ESTIMATED GLOMERULAR FILTRATION RATE 41 mL/min/1.73m??? Low >=60 [facility] Comment on above: Order Comment: Scott seals Type: BLOOD SPECIMENOrdering Facility: [facility] Address: [address] [place] [address] Result Comment: Petra mated Glomerular Filtration Rate [...] actual GFR. Performed By: #### 2 4323-8, 68957-2, 75203-0 ####[facility] LABORATORYCLIA [id number] [address] [place] Glucose [Mass/Vol] 145 mg/dL High 74-99 [facility] Comment on above: Order Comment: Scott seals Type: BLOOD SPECIMENOrdering Facility: [facility] Address: [address] [place] [address] Result Comment: The [place] Diabetes Association (ADA) provides guidance for cutoff [...] Standards of Medical Care in Diabetes 2016, [place] [employer]. Diabetes Care. 2016.39(Suppl 1). Performed By: #### 2 4323-8, 30531-9, 10511-2 ####[facility]ORATORYCLIA [id number] [place] [address] [place] Potassium [Moles/Vol] 3.9 mmol/L Normal 3.7-5.1 [facility] Comment on above: Order Comment: Speci men Type: BLOOD SPECIMENOrdering Facility: [facility] Address: [address] [place] [address] Performed By: #### 2 4323-8, , 36785-0 ####[facility]ATORYCLIA [id number] [place] [address] [place] Protein [Mass/Vol] 4.7 g/dL Low 6.3-8.0 [facility] Comment on above: Order Comment: Speci men Type: BLOOD SPECIMENOrdering Facility: [facility] Address: [address] [address] Performed By: #### 2 4323-8, , 80848-9 ####[facility]ATORYCLIA [id number] [place] [address] [place] Sodium [Moles/Vol] 141 mmol/L Normal 136-144 [facility] Comment on above: Order Comment: Speci men Type: BLOOD SPECIMENOrdering Facility: [facility] Address: [address] [address] Performed By: #### 2 4323-8, , 02708-9 ####[facility]ATORYCLIA [id number] [place] [address] [place] Urea nitrogen [Mass/Vol] 33 mg/dL High 7-21 [facility] Comment on above: Order Comment: Speci men Type: BLOOD SPECIMENOrdering Facility: [facility] Address: [address] Performed By: #### 2 4323-8, 52115-7, 14064-4 ####[facility]ATORYCLIA [id number] [place] [address] [place] ECG COMPLETEon 01-12-2023 ECG COMPLETE Normal [facility] ED NOTEon 01-12-2023 ED NOTE Normal [facility] ED NOTE HNO ID: [id number] Author: Mariajose Swain RN Service: ? Author Type: Registered Nurse Type: ED Notes Filed: 01/12/2023 9:40 PM Note Text: Bed: 15-ED Expected date: Expected time: Means of arrival: Comments: Room 36 Normal [facility] ED NOTE HNO ID: [id number] Author: Allison Gaytan RN Service: Emergency Medicine Author Type: Registered Nurse Type: ED Notes Filed: 01/12/2023 9:31 PM Note Text: LIP aware of BP. Normal [facility] ED NOTE HNO ID: [id number] Author: Beatrice Fulton RN Service: Emergency Medicine Author Type: Registered Nurse Type: ED Notes Filed: 01/12/2023 2:00 PM Note Text: Report given to ROYCE Cheney [facility] ED NOTE HNO ID: [id number] Author: Beatrice Fulton RN Service: Emergency Medicine Author Type: Registered Nurse Type: ED Notes Filed: 01/12/2023 1:20 PM Note Text: This RN to assume temporary care of pt @ this time to cover lunch of primary RN Normal [facility] ED NOTE Normal [facility] ED PROV NOTEon 01-12-2023 ED PROV NOTE Normal [facility] ED PROV NOTE Normal [facility] ED PROV NOTE Normal [facility] HIGH SENSITIVITY TROPONIN T (INITIAL)on 01-12-2023 HIGH SENSITIVITY MARIE 97 ng/L High <12 [facility] Comment on above: Order Comment: Speci men Type: BLOOD SPECIMENOrdering Facility: [facility] Address: [address] [place] [id number] Result Comment: When assessing risk for acute [...] 30 day MACE. Performed By: #### L [id number] ####[facility]ORATORYCLIA [id number] [address] HIGH SENSITIVITY TROPONIN T (SECOND)on 01-12-2023 HIGH SENSITIVITY MARIE 93 ng/L High <12 [facility] Comment on above: Order Comment: Speci men Type: BLOOD SPECIMENOrdering Facility: [facility] Address: [address] [place] [address] Result Comment: When assessing risk for acute [...] 30 day MACE. Performed By: #### L [id number] ####[facility]ATORYCLIA [id number] [address] HIGH SENSITIVITY TROPONIN T (THIRD) 3 HRS AFTER INITIALon 01-12-2023 HIGH SENSITIVITY MARIE 91 ng/L High <12 [facility] Comment on above: Order Comment: Scott seals Type: BLOOD SPECIMENOrdering Facility: [facility] Address: [address] [place] [address] Result Comment: When assessing risk for acute [...] 30 day MACE. Performed By: #### L [id number] ####[facility]ATORYCLIA [id number] [address] [place] HISTORY PHYSICALon HISTORY PHYSICAL Normal [facility] Magnesium SerPl-mCncon 01-12 Magnesium [Mass/Vol] 1.4 mg/dL Low 1.7-2.3 [facility] Comment on above: Order Comment: Speci men Type: BLOOD SPECIMENOrdering Facility: [facility] Address: [address] [place] [address] Performed By: #### 2 4323-8, 40040-3, 86357-5 ####[facility]ATORYCLIA [id number] [address] [facility]BNP [facility] 01-12 Natriuretic peptide.B prohormone N-Terminal [Mass/Vol] 683 pg/mL High <125 [facility] Comment on above: Order Comment: Speci men Type: BLOOD SPECIMENOrdering Facility: [facility] Address: [address] [place] [address] Performed By: #### 2 4323-8, 79534-8, 55699-4 ####[facility]ITALCL[facility] [id number] [address] OF [facility] SARS-CoV-2 RNA Resp Ql IGGY+p robeon 01-12-2023 SARS-CoV-2 (COVID-19) RNA IGGY+probe Ql (Resp) COVID 19 RESULT: Not detected The method used is RT-PCR or an equivalent NAAT method. Reference Range(the expected result in uninfected individuals): Not detected Normal [facility] Comment on above: Performed By: #### 9 4500-6 ####[facility]ATORYCLIA [id number] [address] Urinalysis complete pnl Uron 01-12-2023 Urinalysis complete panel (U) Abnormal [facility] Comment on above: Order Comment: Speci men Type: URINE SPECIMENOrdering Facility: [facility] Address: [address] [place] [address] Performed By: #### 2 4356-8 ####[facility]ORATORYCLIA [id number] [address] [place] XR CHEST 1V FRONTALon 2022 XR CHEST 1V FRONTAL Normal [facility] Basophil percentageOrdered B y: Lucy Quick on 01-10-2023 Chloride [Moles/Vol] 103 mmol/L 98-107 [facility] Glucose [Mass/Vol] 98 mg/dL 74-106 [facility] Potassium [Moles/Vol] 4.2 mmol/L 3.5-5.1 [facility] Sodium [Moles/Vol] 145 mmol/L 136-145 [facility] WBC (Bld) [#/Vol] 7.7 10*3/uL 4.4-11.0 [facility] Blood erythrocytes count (nu mber/volume)Ordered By: Lucy Quick on 01-10-2023 RBC (Bld) [#/Vol] 3.08 10*6/uL 4.2-5.4 [facility] Blood hemoglobin measurement (mass/volume)Ordered By: Lucy Quick on 01-10-2023 Hemoglobin (Bld) [Mass/Vol] 8.9 g/dL 12.0-15.0 [facility] Blood platelet mean volumeOr dered By: Lucy Quick on 01-10-2023 Platelet mean volume (Bld) [Entitic vol] 8.9 fL 6.2-12.0 [facility] Determination of erythrocyte mean corpuscular volume (MCV)Ordered By: Lucy Quick on 01-10-2023 MCV (RBC) [Entitic vol] 91.9 fL 81-99 [facility] Hematocrit Auto (Bld) [Volum e fraction]Ordered By: Lucy Quick on 01-10-2023 Hematocrit (Bld) [Volume fraction] 28.3 % 37-47 [facility] Laboratory - Chemistry and C hemistry - challengeOrdered By: Lucy Quick on 01-10-2023 CO2 [Moles/Vol] 34.0 mmol/L 21.0-32.0 [facility] Urea nitrogen/Creatinine [Mass ratio] 23.5 mg/mg 10-20 [facility] Laboratory - Hematology and Cell countsOrdered By: Lucy Quick on 01-10-2023 Erythrocyte distribution width (RBC) [Entitic vol] 51.8 fL 35.1-43.9 [facility] Erythrocyte distribution width (RBC) [Ratio] 15.6 % 11.6-14.6 [facility] MCH (RBC) [Entitic mass] 28.9 pg 27.0-32.0 [facility] MCHC Auto (RBC) [Mass/Vol]Or dered By: Lucy Quick on 01-10-2023 MCHC (RBC) [Mass/Vol] 31.4 g/dL 32-36 [facility] No Panel InformationOrdered By: Lucy Quick on 01-10-2023 Estimated GFR (MDRD) Amer 52 mL/min >60 [facility] Comment on above: GFR Calc Estimated GFR (MDRD) Non-Af Amer 43 mL/min >60 [facility] Comment on above: Non- GFR Calc Platelets bldOrdered By: Josee Quick on 01-10-2023 Platelets (Bld) [#/Vol] 286 10*3/uL 150-450 [facility] Serum or plasma calcium catracho urement (mass/volume)Ordered By: Lucy Quick on 01-10-2023 Calcium [Mass/Vol] 8.6 mg/dL 8.5-10.1 [facility] Serum or plasma creatinine m easurement (mass/volume)Ordered By: Lucy Quick on 01-10-2023 Creatinine [Mass/Vol] 1.32 mg/dL 0.55-1.02 [facility] Comment on above: The validity of the calculated GFR & GFRAA in patients over 70 years has not been determined. Clinical correlation is essential. Serum or plasma urea nitroge n measurement (mass/volume)Ordered By: Lucy Quick on 01-10-2023 Urea nitrogen [Mass/Vol] 31 mg/dL 7-18 [facility] Thin prep Papanicolaou smear with manual screeningOrdered By: Lucy Quick on 01-10-2023 Thin prep Papanicolaou smear with manual screening 8 5-15 [facility] Basophil percentageOrdered B y: Lucy Quick on 01-05-2023 Chloride [Moles/Vol] 103 mmol/L 98-107 [facility] Glucose [Mass/Vol] 87 mg/dL 74-106 [facility] Potassium [Moles/Vol] 4.5 mmol/L 3.5-5.1 [facility] Sodium [Moles/Vol] 142 mmol/L 136-145 [facility] Laboratory - Chemistry and C hemistry - challengeOrdered By: Lucy Quick on 01-05-2023 CO2 [Moles/Vol] 31.0 mmol/L 21.0-32.0 [facility] Urea nitrogen/Creatinine [Mass ratio] 29.9 mg/mg 10-20 [facility] No Panel InformationOrdered By: Lucy Quick on 01-05-2023 Estimated GFR (MDRD) Amer 50 mL/min >60 [facility] Comment on above: GFR Calc Estimated GFR (MDRD) Non-Af Amer 41 mL/min >60 [facility] Comment on above: Non- GFR Calc Serum or plasma calcium catracho urement (mass/volume)Ordered By: Lucy Quick on 01-05-2023 Calcium [Mass/Vol] 8.8 mg/dL 8.5-10.1 [facility] Serum or plasma creatinine m easurement (mass/volume)Ordered By: Lucy Quick on 01-05-2023 Creatinine [Mass/Vol] 1.37 mg/dL 0.55-1.02 [facility] Comment on above: The validity of the calculated GFR & GFRAA in patients over 70 years has not been determined. Clinical correlation is essential. Serum or plasma urea nitroge n measurement (mass/volume)Ordered By: Lucy Quick on 01-05-2023 Urea nitrogen [Mass/Vol] 41 mg/dL 7-18 [facility] Thin prep Papanicolaou smear with manual screeningOrdered By: Lucy Quick on 01-05-2023 Thin prep Papanicolaou smear with manual screening 8 5-15 [facility] ALLIED HEALTHon 01-02-2023 ALLIED HEALTH Normal [facility] Basophil percentageOrdered B y: Lucy Quick on 01-02-2023 WBC (Bld) [#/Vol] 7.0 10*3/uL 4.4-11.0 [facility] Blood erythrocytes count (nu mber/volume)Ordered By: Lucy Quick on 01-02-2023 RBC (Bld) [#/Vol] 3.15 10*6/uL 4.2-5.4 [facility] Blood hemoglobin measurement (mass/volume)Ordered By: Lucy Quick on 01-02-2023 Hemoglobin (Bld) [Mass/Vol] 9.4 g/dL 12.0-15.0 [facility] Blood platelet mean volumeOr dered By: Lucy Quick on 01-02-2023 Platelet mean volume (Bld) [Entitic vol] 9.2 fL 6.2-12.0 [facility] CBC W Auto Differential pane l (Bld)on 01-02-2023 Anisocytosis Ql (Bld) Present Normal [facility] Comment on above: Order Comment: Speci men Type: BLOOD SPECIMENOrdering Facility: [facility] Address: [address] [place] [address] Performed By: #### 5 7021-8 ####[facility] LABORATORYCLIA [id number] [address] Basophils (Bld) [#/Vol] 0.00 10*3/uL Normal <0.11 [facility] Comment on above: Order Comment: Speci men Type: BLOOD SPECIMENOrdering Facility: [facility] Address: [address] [place] [address] Performed By: #### 5 7021-8 ####[facility]ORATORYCLIA [id number] [address] Basophils/100 WBC (Bld) 0.0 % Normal [facility] Comment on above: Order Comment: Speci men Type: BLOOD SPECIMENOrdering Facility: [facility] Address: [address] [address] Performed By: #### 5 7021-8 ####[facility]ORATORYCLIA [id number] [address] Differential cell count method Nom (Bld) Manual Normal [facility] Comment on above: Order Comment: Speci men Type: BLOOD SPECIMENOrdering Facility: [facility] Address: [address] [address] Performed By: #### 5 7021-8 ####[facility]ORATORYCLIA [id number] [address] [place] Eosinophils (Bld) [#/Vol] 0.00 10*3/uL Normal <0.46 [facility] Comment on above: Order Comment: Speci men Type: BLOOD SPECIMENOrdering Facility: [facility] Address: [address] [place] [address] Performed By: #### 5 7021-8 ####[facility] LABORATORYCLIA [id number] [address] [place] Eosinophils/100 WBC (Bld) 0.0 % Normal [facility] Comment on above: Order Comment: Speci men Type: BLOOD SPECIMENOrdering Facility: [facility] Address: [address] [place] [address] Performed By: #### 5 7021-8 ####[facility] LABORATORYCLIA [id number] [address] [place] [facility] Erythrocyte distribution width (RBC) [Ratio] 16.2 % High 11.5-15.0 [facility] Comment on above: Order Comment: Speci men Type: BLOOD SPECIMENOrdering Facility: [facility] Address: [address] [place] [address] Performed By: #### 5 7021-8 ####[facility]ORATORYCLIA [id number] [address] [place] Hematocrit (Bld) [Volume fraction] 31.8 % Low 36.0-46.0 [facility] Comment on above: Order Comment: Speci men Type: BLOOD SPECIMENOrdering Facility: [facility] Address: [address] [place] [address] Performed By: #### 5 7021-8 ####[facility] LABORATORYCLIA [id number] [address] [place] Hemoglobin (Bld) [Mass/Vol] 9.2 g/dL Low 11.5-15.5 [facility] Comment on above: Order Comment: Speci men Type: BLOOD SPECIMENOrdering Facility: [facility] Address: [address] [address] Performed By: #### 5 7021-8 ####[facility]ORATORYCLIA [id number] [address] Lymphocytes (Bld) [#/Vol] 1.41 10*3/uL Normal 1.00-4.00 [facility] Comment on above: Order Comment: Speci men Type: BLOOD SPECIMENOrdering Facility: [facility] Address: [address] [place] [address] Performed By: #### 5 7021-8 ####[facility]ORATORYCLIA [id number] [address] Lymphocytes/100 WBC (Bld) 19.0 % Normal [facility] Comment on above: Order Comment: Speci men Type: BLOOD SPECIMENOrdering Facility: [facility] Address: [address] [place] [address] Performed By: #### 5 7021-8 ####[facility] LABORATORYCLIA [id number] [address] STATES OF [facility] MCH (RBC) [Entitic mass] 28.0 pg Normal 26.0-34.0 [facility] Comment on above: Order Comment: Speci men Type: BLOOD SPECIMENOrdering Facility: [facility] Address: [address] [place] [address] Performed By: #### 5 7021-8 ####[facility]ORATORYCLIA [id number] [address] MCHC (RBC) [Mass/Vol] 28.9 g/dL Low 30.5-36.0 [facility] Comment on above: Order Comment: Speci men Type: BLOOD SPECIMENOrdering Facility: [facility] Address: [address] [place] [address] Performed By: #### 5 7021-8 ####[facility]ORATORYCLIA [id number] [address] MCV (RBC) [Entitic vol] 96.7 fL Normal 80.0-100.0 [facility] Comment on above: Order Comment: Speci men Type: BLOOD SPECIMENOrdering Facility: [facility] Address: [address] [place] [address] Performed By: #### 5 7021-8 ####[facility] [facility]ORATORYCLIA [id number] [address] Metamyelocytes/100 WBC (Bld) 3.0 % Normal [facility] Comment on above: Order Comment: Speci men Type: BLOOD SPECIMENOrdering Facility: [facility] Address: [address] [place] [address] Performed By: #### 5 7021-8 ####[facility]ATORYCLIA [id number] [address] Monocytes (Bld) [#/Vol] 0.44 10*3/uL Normal <0.87 [facility] Comment on above: Order Comment: Speci men Type: BLOOD SPECIMENOrdering Facility: [facility] Address: [address] [place] [address] Performed By: #### 5 7021-8 ####[facility]ATORYCLIA [id number] [address] Monocytes/100 WBC (Bld) 6.0 % Normal [facility] Comment on above: Order Comment: Speci men Type: BLOOD SPECIMENOrdering Facility: [facility] Address: [address] [place] [address] Performed By: #### 5 7021-8 ####[facility] [facility]ATORYCLIA [id number] [address] MY[place]O% 1.0 % Normal [facility] Comment on above: Order Comment: Speci men Type: BLOOD SPECIMENOrdering Facility: [facility] Address: [address] [place] [address] Performed By: #### 5 7021-8 ####[facility] [facility]ORATORYCLIA [id number] [place] [address] [place] Neutrophils (Bld) [#/Vol] 5.25 10*3/uL Normal 1.45-7.50 [facility] Comment on above: Order Comment: Speci men Type: BLOOD SPECIMENOrdering Facility: [facility] Address: [address] [address] Performed By: #### 5 7021-8 ####[facility]ATORYCLIA [id number] [address] [place] Neutrophils/100 WBC (Bld) 71.0 % Normal [facility] Comment on above: Order Comment: Speci men Type: BLOOD SPECIMENOrdering Facility: [facility] Address: [address] [place] [address] Performed By: #### 5 7021-8 ####[facility]ORATORYCLIA [id number] [address] [place] Nucleated RBC (Bld) [#/Vol] 10*3/uL Normal <0.01 [facility] Comment on above: Order Comment: Speci men Type: BLOOD SPECIMENOrdering Facility: [facility] Address: [address] [place] [address] Performed By: #### 5 7021-8 ####[facility]ORATORYCLIA [id number] [address] Nucleated RBC/100 WBC (Bld) [Ratio] 0.0 /100 WBC Normal [facility] Comment on above: Order Comment: Speci men Type: BLOOD SPECIMENOrdering Facility: [facility] Address: [address] [place] [address] Performed By: #### 5 7021-8 ####[facility]ORATORYCLIA [id number] [address] Ovalocytes LM Ql (Bld) Few Normal [facility] Comment on above: Order Comment: Speci men Type: BLOOD SPECIMENOrdering Facility: [facility] Address: [address] [place] [address] Performed By: #### 5 7021-8 ####[facility] [facility]ATORYCLIA [id number] [address] [place] Platelet mean volume (Bld) [Entitic vol] 8.5 fL Low 9.0-12.7 [facility] Comment on above: Order Comment: Speci men Type: BLOOD SPECIMENOrdering Facility: [facility] Address: [address] [place] [address] Performed By: #### 5 7021-8 ####[facility]ATORYCLIA [id number] [address] [place] Platelets (Bld) [#/Vol] 343 10*3/uL Normal 150-400 [facility] Comment on above: Order Comment: Speci men Type: BLOOD SPECIMENOrdering Facility: [facility] Address: [address] [place] [address] Performed By: #### 5 7021-8 ####[facility]ATORYCLIA [id number] [address] [place] Platelets Estimate (Bld) [#/Vol] Adequate Normal [facility] Comment on above: Order Comment: Speci men Type: BLOOD SPECIMENOrdering Facility: [facility] Address: [address] [place] [address] Performed By: #### 5 7021-8 ####[facility]ORATORYCLIA [id number] [address] [place] Polychromasia LM Ql (Bld) Slight Normal [facility] Comment on above: Order Comment: Speci men Type: BLOOD SPECIMENOrdering Facility: [facility] Address: [address] [place] [address] Performed By: #### 5 7021-8 ####[facility]ORATORYCLIA [id number] [address] [place] RBC (Bld) [#/Vol] 3.29 10*6/uL Low 3.90-5.20 [facility] Comment on above: Order Comment: Speci men Type: BLOOD SPECIMENOrdering Facility: [facility] Address: [address] [place] [address] Performed By: #### 5 7021-8 ####[facility]ORATORYCLIA [id number] [address] RBC FRAGMENTS Few Abnormal None Seen [facility] Comment on above: Order Comment: Speci men Type: BLOOD SPECIMENOrdering Facility: [facility] Address: [address] [place] [address] Performed By: #### 5 7021-8 ####[facility]ORATORYCLIA [id number] [address] RED CELL MORPH Reviewed: see result s of individual morphologies Normal [facility] Comment on above: Order Comment: Speci men Type: BLOOD SPECIMENOrdering Facility: [facility] Address: [address] [place] [address] Performed By: #### 5 7021-8 ####[facility]ATORYCLIA [id number] [address] WBC (Bld) [#/Vol] 7.40 10*3/uL Normal 3.70-11.00 [facility] Comment on above: Order Comment: Speci men Type: BLOOD SPECIMENOrdering Facility: [facility] Address: [address] [place] [address] Performed By: #### 5 7021-8 ####[facility]ORATORYCLIA [id number] [address] WBC Left Shift Ql (Bld) Present Normal A [facility] Comment on above: Order Comment: Speci men Type: BLOOD SPECIMENOrdering Facility: [facility] Address: [address] [place] [address] Performed By: #### 5 7021-8 ####[facility]ORATORYCLIA [id number] [address] Comprehensive metabolic 2000 panelon 01-02-2023 Albumin [Mass/Vol] 3.2 g/dL Low 3.9-4.9 [facility] Comment on above: Order Comment: Speci men Type: BLOOD SPECIMENOrdering Facility: [facility] Address: [address] [address] Performed By: #### 2 4323-8, 75689-0 ####[facility]ORATORYCLIA [id number] [address] ALP [Catalytic activity/Vol] 63 U/L Normal 34-123 [facility] Comment on above: Order Comment: Speci men Type: BLOOD SPECIMENOrdering Facility: [facility] Address: [address] [address] Performed By: #### 2 4323-8, 52450-8 ####[facility]ORATORYCLIA [id number] [address] ALT With P-5'-P [Catalytic activity/Vol] 17 U/L Normal 7-38 [facility] Comment on above: Order Comment: Speci men Type: BLOOD SPECIMENOrdering Facility: [facility] [facility] Address: [address] [place] [address] Performed By: #### 2 4323-8, 28957-2 ####[facility]ORATORYCLIA [id number] [address] Anion gap [Moles/Vol] 10 mmol/L Normal 9-18 [facility] Comment on above: Order Comment: Speci men Type: BLOOD SPECIMENOrdering Facility: [facility] Address: [address] [place] [address] Performed By: #### 2 4323-8, 55299-6 ####[facility]ATORYCLIA [id number] [address] [place] AST With P-5'-P [Catalytic activity/Vol] 10 U/L Low 13-35 [facility] Comment on above: Order Comment: Speci men Type: BLOOD SPECIMENOrdering Facility: [facility] Address: [address] [address] Performed By: #### 2 4323-8, 02367-4 ####[facility]ATORYCLIA [id number] [address] [place] Bilirubin [Mass/Vol] mg/dL Low 0.2-1.3 [facility] Comment on above: Order Comment: Speci men Type: BLOOD SPECIMENOrdering Facility: [facility] Address: [address] [place] [address] Performed By: #### 2 4323-8, 06666-7 ####[facility]ORATORYCLIA [id number] [place] [address] [place] Calcium [Mass/Vol] 8.9 mg/dL Normal 8.5-10.2 [facility] Comment on above: Order Comment: Speci men Type: BLOOD SPECIMENOrdering Facility: [facility] Address: [address] [place] [address] Performed By: #### 2 4323-8, 62496-9 ####[facility]ATORYCLIA [id number] [place] [address] [place] Chloride [Moles/Vol] 96 mmol/L Low 97-105 [facility] Comment on above: Order Comment: Speci men Type: BLOOD SPECIMENOrdering Facility: [facility] Address: [address] [place] [address] Performed By: #### 2 4323-8, 88265-1 ####[facility]ATORYCLIA [id number] [place] [address] [place] CO2 [Moles/Vol] 32 mmol/L High 22-30 [facility] Comment on above: Order Comment: Speci men Type: BLOOD SPECIMENOrdering Facility: [facility] Address: [address] [place] [address] Performed By: #### 2 4323-8, 66862-9 ####[facility]ATORYCLIA [id number] [place] [address] [place] Creatinine [Mass/Vol] 1.60 mg/dL High 0.58-0.96 [facility] Comment on above: Order Comment: Speci men Type: BLOOD SPECIMENOrdering Facility: [facility] Address: [address] [place], [place] [id number] Performed By: #### 2 4323-8, 59748-8 ####[facility]ITAL[facility] [id number] [place] [id number] [facility] ESTIMATED GLOMERULAR FILTRATION RATE 36 mL/min/1.73m??? Low >=60 [facility] Comment on above: Order Comment: Scott seals Type: BLOOD SPECIMENOrdering Facility: [facility] Address: [address] [place] [address] Result Comment: Petra mated Glomerular Filtration Rate [...] actual GFR. Performed By: #### 2 4323-8, 42621-0 ####[facility] [id number] [address] Glucose [Mass/Vol] 379 mg/dL High 74-99 [facility] Comment on above: Order Comment: Scott seals Type: BLOOD SPECIMENOrdering Facility: [facility] Address: [address] [facility] [place] [address] Result Comment: The [place] Diabetes Association (ADA) provides guidance for cutoff [...] Standards of Medical Care in Diabetes 2016, [place] [employer]. Diabetes Care. 2016.39(Suppl 1). Performed By: #### 2 4323-8, 41567-3 ####[facility]ATORYCLIA [id number] [address] STATES OF [facility] Potassium [Moles/Vol] 5.0 mmol/L Normal 3.7-5.1 [facility] Comment on above: Order Comment: Speci men Type: BLOOD SPECIMENOrdering Facility: [facility] Address: [address] [place] [address] Performed By: #### 2 4323-8, 12090-6 ####[facility]ATORYCLIA [id number] [place] [address] [place] Protein [Mass/Vol] 5.3 g/dL Low 6.3-8.0 [facility] Comment on above: Order Comment: Speci men Type: BLOOD SPECIMENOrdering Facility: [facility] Address: [address] [place] [address] Performed By: #### 2 4323-8, 68876-9 ####[facility]ATORYCLIA [id number] [address] STATES [facility] Sodium [Moles/Vol] 138 mmol/L Normal 136-144 [facility] Comment on above: Order Comment: Speci men Type: BLOOD SPECIMENOrdering Facility: [facility] Address: [address] [place] [address] Performed By: #### 2 4323-8, 08693-5 ####[facility]ATORYCLIA [id number] [address] [place] Urea nitrogen [Mass/Vol] 32 mg/dL High 7-21 [facility] Comment on above: Order Comment: Speci men Type: BLOOD SPECIMENOrdering Facility: [facility] Address: [address] [place] [address] Performed By: #### 2 4323-8, 54986-6 ####[facility]ATORYCLIA [id number] [address] STATES OF [facility] Determination of erythrocyte mean corpuscular volume (MCV)Ordered By: Lucy Quick on 01-02-2023 MCV (RBC) [Entitic vol] 96.2 fL 81-99 [facility] ED NOTEon 01-02-2023 ED NOTE HNO ID: [id number] Author: Harsha Morin RN Service: Emergency Medicine Author Type: Registered Nurse Type: ED Notes Filed: 01/02/2023 9:29 PM Note Text: Report called back to [place] of Jessica CRANE Normal [facility] ED NOTE HNO ID: [id number] Author: Sandy Steve RN Service: Emergency Medicine Author Type: Registered Nurse Type: ED Notes Filed: 01/02/2023 5:13 PM Note Text: 800 mL urine output Normal [facility] ED NOTE HNO ID: [id number] Author: Sanyd Steve RN Service: Emergency Medicine Author Type: Registered Nurse Type: ED Notes Filed: 01/02/2023 3:50 PM Note Text: Per EMS, pt reports that she has had swelling for the past week. Normal [facility] ED NOTE HNO ID: [id number] Author: Roseann Reyes, Medic Service: ? 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 Comment on above: Order Comment: Speci men Type: BLOOD SPECIMENOrdering Facility: [facility] Address: [address] [place], [place] [phone] Result Comment: When assessing risk for acute [...] 30 day MACE. Performed By: #### L [id number] ####[facility]ORATORYCLIA [id number] [address] OF [facility] HIGH SENSITIVITY TROPONIN T (SECOND)on 01-02-2023 HIGH SENSITIVITY MARIE 59 ng/L High <12 [facility] Comment on above: Order Comment: Scott seals Type: BLOOD SPECIMENOrdering Facility: [facility] Address: [address] [address] Result Comment: When assessing risk for acute [...] 30 day MACE. Performed By: #### L [id number] ####[facility]ATORYCLIA [id number] [place] [address] [place] Hematocrit Auto (Bld) [Volum e fraction]Ordered By: Lucy Quick on 01-02-2023 Hematocrit (Bld) [Volume fraction] 30.3 % 37-47 [facility] Laboratory - Hematology and Cell countsOrdered By: Lucy Quick on 01-02-2023 Erythrocyte distribution width (RBC) [Entitic vol] 57.6 fL 35.1-43.9 [facility] Erythrocyte distribution width (RBC) [Ratio] 16.4 % 11.6-14.6 [facility] MCH (RBC) [Entitic mass] 29.8 pg 27.0-32.0 [facility] MCHC Auto (RBC) [Mass/Vol]Or dered By: Lucy Quick on 01-02-2023 MCHC (RBC) [Mass/Vol] 31.0 g/dL 32-36 [facility] Natriuretic peptide.B prohormone N-Terminal [Mass/Vol] 402 pg/mL High <125 [facility] Comment on above: Order Comment: Scott seals Type: BLOOD SPECIMENOrdering Facility: [facility] Address: [address] [phone] Performed By: #### 2 4323-8, 98807-0 ####[facility]ATORYCLIA [id number] [place] [address] [place] Platelets bldOrdered By: Josee Quick on 01-02-2023 Platelets (Bld) [#/Vol] 286 10*3/uL 150-450 [facility] SARS-CoV-2 RNA Resp Ql IGGY+p robeon 01-02-2023 SARS-CoV-2 (COVID-19) RNA IGGY+probe Ql (Resp) COVID 19 RESULT: Not detected The method used is RT-PCR or an equivalent NAAT method. Reference Range(the expected result in uninfected individuals): Not detected Normal [facility] Comment on above: Performed By: #### 9 4500-6 ####[facility]ATORYCLIA [id number] [place] [address] [place] XR CHEST 1V FRONTALon 2022 XR CHEST 1V FRONTAL Normal [facility] Basophil percentageOrdered B y: Lucy Quick on 12-25-2022 Basophil percentage 0 SEEN /hpf 0-5 [facility] Bilirubin Test strip Ql (U)O rdered By: Lucy Quick on 12-25-2022 Bilirubin Ql (U) Negative Negative [facility] Ketones Test strip Ql (U)Ord ered By: Lucy Quick on 12-25-2022 Ketones Ql (U) Negative Negative [facility] Mucus LM Ql (Urine sed)Order ed By: Lucy Quick on 12-25-2022 Mucus Ql (Urine sed) 0 SEEN /hpf [facility] Nitrite Test strip Ql (U)Ord ered By: Lucy Quick on 12-25-2022 Nitrite Ql (U) Negative Negative [facility] Protein Test strip Ql (U)Ord ered By: Lucy Quick on 12-25-2022 Protein Ql (U) 15 mg/dl Negative [facility] Squamous epithelial cells de tection in urine sediment by light microscopyOrdered By: Lucy Quick on 12-25-2022 Epithelial cells.squamous LM Ql (Urine sed) 0 SEEN /hpf 5-10 [facility] Urine blood detectionOrdered By: Lucy Quick on 12-25-2022 RBC Ql (U) Negative Negative [facility] RBC Ql (U) 0 SEEN /hpf 0-5 [facility] Urine clarityOrdered By: Pet roro Quick on 12-25-2022 Clarity (U) Sl. Cloudy Clear [facility] Urine color determinationOrd ered By: Lucy Quick on 12-25-2022 Color (U) Yellow Yellow [facility] Urine glucose detectionOrder ed By: Lucy Quick on 12-25-2022 Glucose Ql (U) Normal mg/dl Normal [facility] Urine leukocyte esterase det ection by dipstickOrdered By: Lucy Quick on 12-25-2022 Leukocyte esterase Test strip Ql (U) Negative Negative [facility] Urine pHOrdered By: Lucy mcguire on 12-25-2022 pH (U) 6.0 [pH] 5.0 - 8.0 [facility] Urine sediment bacteria coun t by microscopy (number/high power field)Ordered By: Lucy Quick on 12-25-2022 Bacteria LM.HPF (Urine sed) [#/Area] 0 /[HPF] None Seen [facility] Urine specific gravity measu rementOrdered By: Lucy Quick on 12-25-2022 Specific gravity (U) [Rel density] 1.010 1.002-1.030 [facility] Urobilinogen Auto test strip Ql (U)Ordered By: Lucy Quick on 12-25-2022 Urobilinogen Ql (U) Normal mg/dl Normal [facility] 12-22-2022 CNPN Normal [facility] CNPNon 12-19-2022 CNP Normal [facility] Basophil percentageOrdered B y: Lucy Quick on 12-05-2022 Chloride [Moles/Vol] 107 mmol/L 98-107 [facility] Glucose [Mass/Vol] 133 mg/dL 74-106 [facility] Comment on above: Fasting Glucose resu lt greater than or equal to 126 mg/dL suggests DIABETES MELLITUS per A.D.A. criteria. Potassium [Moles/Vol] 4.4 mmol/L 3.5-5.1 [facility] Sodium [Moles/Vol] 143 mmol/L 136-145 [facility] WBC (Bld) [#/Vol] 9.9 10*3/uL 4.4-11.0 [facility] Blood erythrocytes count (nu mber/volume)Ordered By: Lucy Quick on 12-05-2022 RBC (Bld) [#/Vol] 3.45 10*6/uL 4.2-5.4 [facility] Blood hemoglobin measurement (mass/volume)Ordered By: Lucy Quick on 12-05-2022 Hemoglobin (Bld) [Mass/Vol] 10.1 g/dL 12.0-15.0 [facility] Blood platelet mean volumeOr dered By: Lucy Quick on 12-05-2022 Platelet mean volume (Bld) [Entitic vol] 8.4 fL 6.2-12.0 [facility] CNPTOUTREACHon 12-05-2022 CNPTOUTREACH Normal [facility] Determination of erythrocyte mean corpuscular volume (MCV)Ordered By: Lucy Quick on 12-05-2022 MCV (RBC) [Entitic vol] 95.4 fL 81-99 [facility] Hematocrit Auto (Bld) [Volum e fraction]Ordered By: Lucy Quick on 12-05-2022 Hematocrit (Bld) [Volume fraction] 32.9 % 37-47 [facility] Laboratory - Chemistry and C hemistry - challengeOrdered By: Lucy Quick on 12-05-2022 CO2 [Moles/Vol] 31.0 mmol/L 21.0-32.0 [facility] Urea nitrogen/Creatinine [Mass ratio] 33.8 mg/mg 10-20 [facility] Laboratory - Hematology and Cell countsOrdered By: Lucy Quick on 12-05-2022 Erythrocyte distribution width (RBC) [Entitic vol] 57.4 fL 35.1-43.9 [facility] Erythrocyte distribution width (RBC) [Ratio] 16.4 % 11.6-14.6 [facility] MCH (RBC) [Entitic mass] 29.3 pg 27.0-32.0 [facility] MCHC Auto (RBC) [Mass/Vol]Or dered By: Lucy Quick on 12-05-2022 MCHC (RBC) [Mass/Vol] 30.7 g/dL 32-36 [facility] No Panel InformationOrdered By: Lucy Quick on 12-05-2022 Estimated GFR (MDRD) Amer 48 mL/min >60 [facility] Comment on above: GFR Calc Estimated GFR (MDRD) Non-Af Amer 39 mL/min >60 [facility] Comment on above: Non- GFR Calc Platelets bldOrdered By: Josee Quick on 12-05-2022 Platelets (Bld) [#/Vol] 299 10*3/uL 150-450 [facility] Serum or plasma calcium catracho urement (mass/volume)Ordered By: Lucy Quick on 12-05-2022 Calcium [Mass/Vol] 8.2 mg/dL 8.5-10.1 [facility] Serum or plasma creatinine m easurement (mass/volume)Ordered By: Lucy Quick on 12-05-2022 Creatinine [Mass/Vol] 1.42 mg/dL 0.55-1.02 [facility] Comment on above: The validity of the calculated GFR & GFRAA in patients over 70 years has not been determined. Clinical correlation is essential. Serum or plasma urea nitroge n measurement (mass/volume)Ordered By: Lucy Quick on 12-05-2022 Urea nitrogen [Mass/Vol] 48 mg/dL 7-18 [facility] Thin prep Papanicolaou smear with manual screeningOrdered By: Lucy Quick on 12-05-2022 Thin prep Papanicolaou smear with manual screening 5 5-15 [facility] Culture, urineOrdered By: Jemal Campos on 12-01-2022 Bacteria identified Cx Nom (U) Meth. resistant Staph. aureus [facility] Bacteria identified Cx Nom (U) Aerococcus viridans. [facility] Basophil percentageOrdered B y: Lucy Quick on 11-28-2022 WBC (Bld) [#/Vol] 12.5 10*3/uL 4.4-11.0 [facility] Bilirubin [Mass/Vol] 0.30 mg/dL 0.20-1.00 [facility] Comment on above: For patients on eltr ombopag therapy, use of Dimension [place] TBIL is not recommended. Chloride [Moles/Vol] 107 mmol/L 98-107 [facility] Glucose [Mass/Vol] 219 mg/dL 74-106 [facility] Comment on above: Glucose result great er than or equal to 200 mg/dLsuggests DIABETES MELLITUS per A.D.A. criteria. Potassium [Moles/Vol] 4.7 mmol/L 3.5-5.1 [facility] Protein [Mass/Vol] 5.8 g/dL 6.4-8.2 [facility] Sodium [Moles/Vol] 142 mmol/L 136-145 [facility] Blood erythrocytes count (nu mber/volume)Ordered By: Lucy Quick on 11-28-2022 RBC (Bld) [#/Vol] 3.73 10*6/uL 4.2-5.4 [facility] Blood hemoglobin measurement (mass/volume)Ordered By: Lucy Quick on 11-28-2022 Hemoglobin (Bld) [Mass/Vol] 10.7 g/dL 12.0-15.0 [facility] Blood platelet mean volumeOr dered By: Lucy Quick on 11-28-2022 Platelet mean volume (Bld) [Entitic vol] 9.8 fL 6.2-12.0 [facility] Determination of erythrocyte mean corpuscular volume (MCV)Ordered By: Lucy Quick on 11-28-2022 MCV (RBC) [Entitic vol] 88.7 fL 81-99 [facility] Hematocrit Auto (Bld) [Volum e fraction]Ordered By: Lucy Quick on 11-28-2022 Hematocrit (Bld) [Volume fraction] 33.1 % 37-47 [facility] Laboratory - Chemistry and C hemistry - challengeOrdered By: Lucy Quick on 11-28-2022 ALP [Catalytic activity/Vol] 59 U/L 45-117 [facility] ALT [Catalytic activity/Vol] 23 U/L 13-56 [facility] CO2 [Moles/Vol] 27.0 mmol/L 21.0-32.0 [facility] Globulin (S) [Mass/Vol] 3.3 g/dL 2.2-4.2 [facility] Urea nitrogen/Creatinine [Mass ratio] 33.6 mg/mg 10-20 [facility] Laboratory - Hematology and Cell countsOrdered By: Lucy Quick on 11-28-2022 Erythrocyte distribution width (RBC) [Entitic vol] 49.4 fL 35.1-43.9 [facility] Erythrocyte distribution width (RBC) [Ratio] 15.2 % 11.6-14.6 [facility] MCH (RBC) [Entitic mass] 28.7 pg 27.0-32.0 [facility] MCHC Auto (RBC) [Mass/Vol]Or dered By: Lucy Quick on 11-28-2022 MCHC (RBC) [Mass/Vol] 32.3 g/dL 32-36 [facility] No Panel InformationOrdered By: Lucy Quick on 11-28-2022 Estimated GFR (MDRD) Amer 49 mL/min >60 [facility] Comment on above: GFR Calc Estimated GFR (MDRD) Non-Af Amer 40 mL/min >60 [facility] Comment on above: Non- GFR Calc Thyroid Stimulating Hormone (TSH) 1.48 uIU/mL 0.358-3.74 [facility] Platelets bldOrdered By: Josee Quick on 11-28-2022 Platelets (Bld) [#/Vol] 264 10*3/uL 150-450 [facility] Serum or plasma albumin catracho urement (mass/volume)Ordered By: Lucy Quick on 11-28-2022 Albumin [Mass/Vol] 2.5 g/dL 3.2-5.0 [facility] Serum or plasma albumin/glob ulin mass ratioOrdered By: Lucy Quick on 11-28-2022 Albumin/Globulin [Mass ratio] 0.8 {ratio} 0.9-2.4 [facility] Serum or plasma calcium catracho urement (mass/volume)Ordered By: Lucy Quick on 11-28-2022 Calcium [Mass/Vol] 8.4 mg/dL 8.5-10.1 [facility] Serum or plasma creatinine m easurement (mass/volume)Ordered By: Lucy Quick on 11-28-2022 Creatinine [Mass/Vol] 1.40 mg/dL 0.55-1.02 [facility] Comment on above: The validity of the calculated GFR & GFRAA in patients over 70 years has not been determined. Clinical correlation is essential. Serum or plasma urea nitroge n measurement (mass/volume)Ordered By: Lucy Quick on 11-28-2022 Urea nitrogen [Mass/Vol] 47 mg/dL 7-18 [facility] Thin prep Papanicolaou smear with manual screeningOrdered By: Lucy Quick on 11-28-2022 Thin prep Papanicolaou smear with manual screening 12 U/L 15-37 [facility] Thin prep Papanicolaou smear with manual screening 8 5-15 [facility] Basophil percentageOrdered B y: Lucy Quick on 11-27-2022 Basophil percentage 0 SEEN /hpf 0-5 [facility] Bilirubin Test strip Ql (U)O rdered By: Lucy Quick on 11-27-2022 Bilirubin Ql (U) Negative Negative [facility] Ketones Test strip Ql (U)Ord ered By: Lucy Quick on 11-27-2022 Ketones Ql (U) Negative Negative [facility] Mucus LM Ql (Urine sed)Order ed By: Lucy Quick on 11-27-2022 Mucus Ql (Urine sed) 0 SEEN /hpf [facility] Nitrite Test strip Ql (U)Ord ered By: Lucy Quick on 11-27-2022 Nitrite Ql (U) Negative Negative [facility] Protein Test strip Ql (U)Ord ered By: Lucy Quick on 11-27-2022 Protein Ql (U) 15 mg/dl Negative [facility] Squamous epithelial cells de tection in urine sediment by light microscopyOrdered By: Lucy Quick on 11-27-2022 Epithelial cells.squamous LM Ql (Urine sed) 0 SEEN /hpf 5-10 [facility] Urine blood detectionOrdered By: Lucy Quick on 11-27-2022 RBC Ql (U) Negative Negative [facility] RBC Ql (U) 0 SEEN /hpf 0-5 [facility] Urine clarityOrdered By: Josee Quick on 11-27-2022 Clarity (U) Clear Clear [facility] Urine color determinationOrd ered By: Lucy Quick on 11-27-2022 Color (U) Yellow Yellow [facility] Urine glucose detectionOrder ed By: Lucy Quick on 11-27-2022 Glucose Ql (U) 250 mg/dl Normal [facility] Urine leukocyte esterase det ection by dipstickOrdered By: Lucy Quick on 11-27-2022 Leukocyte esterase Test strip Ql (U) Negative Negative [facility] Urine pHOrdered By: Lucy mcguire on 11-27-2022 pH (U) 6.0 [pH] 5.0 - 8.0 [facility] Urine sediment bacteria coun t by microscopy (number/high power field)Ordered By: Lucy Quick on 11-27-2022 Bacteria LM.HPF (Urine sed) [#/Area] 0 /[HPF] None Seen [facility] Urine specific gravity measu rementOrdered By: Lucy Quick on 11-27-2022 Specific gravity (U) [Rel density] 1.015 1.002-1.030 [facility] Urobilinogen Auto test strip Ql (U)Ordered By: Lucy Quick on 11-27-2022 Urobilinogen Ql (U) Normal mg/dl Normal [facility] Basophil percentageOrdered B y: Lucy Quick on 11-24-2022 WBC (Bld) [#/Vol] 16.9 10*3/uL 4.4-11.0 [facility] Blood erythrocytes count (nu mber/volume)Ordered By: Lucy Quikc on 11-24-2022 RBC (Bld) [#/Vol] 3.44 10*6/uL 4.2-5.4 [facility] Blood hemoglobin measurement (mass/volume)Ordered By: Lucy Quick on 11-24-2022 Hemoglobin (Bld) [Mass/Vol] 10.1 g/dL 12.0-15.0 [facility] Blood platelet mean volumeOr dered By: Lucy Quick on 11-24-2022 Platelet mean volume (Bld) [Entitic vol] 9.3 fL 6.2-12.0 [facility] Determination of erythrocyte mean corpuscular volume (MCV)Ordered By: Lucy Quick on 11-24-2022 MCV (RBC) [Entitic vol] 91.6 fL 81-99 [facility] Hematocrit Auto (Bld) [Volum e fraction]Ordered By: Lucy Quick on 11-24-2022 Hematocrit (Bld) [Volume fraction] 31.5 % 37-47 [facility] Laboratory - Hematology and Cell countsOrdered By: Lucy Quick on 11-24-2022 Erythrocyte distribution width (RBC) [Entitic vol] 49.4 fL 35.1-43.9 [facility] Erythrocyte distribution width (RBC) [Ratio] 15.1 % 11.6-14.6 [facility] MCH (RBC) [Entitic mass] 29.4 pg 27.0-32.0 [facility] MCHC Auto (RBC) [Mass/Vol]Or dered By: Lucy Quick on 11-24-2022 MCHC (RBC) [Mass/Vol] 32.1 g/dL - [facility] Platelets bldOrdered By: Pet er Dustin on 11-24-2022 Platelets (Bld) [#/Vol] 289 10*3/uL 150-450 [facility] CNPNon 11-20-2022 CNPN [facility] CNPTOUTREACHon 11-20-2022 CNPTOUTREACH [facility] CASE MANAGEMon 11-17-2022 CASE MANAGEM Normal [facility] CNDSon 11-17-2022 CNDS [facility] NUTRITIONon 11-17-2022 NUTRITION [facility] SARS-CoV-2 RNA Resp Ql IGGY+p robeon 11-17-2022 SARS-CoV-2 (COVID-19) RNA IGGY+probe Ql (Resp) COVID 19 RESULT: SARS-CoV-2 (Agent of COVID-19) Not Detected by RT-PCR or equivalent method. This test has been authorized by FDA under an Emergency Use Authorization (EUA). Normal [facility] Comment on above: Performed By: #### 9 4500-6 ####[facility] LABORATORYCLIA [id number] [address] STATES OF [facility] CASE MANAGEMon 11-16-2022 CASE MANAGEM Normal [facility] THERAPY NTon 11-16-2022 THERAPY NT [facility] THERAPY NT [facility] CASE MANAGEMon 11-15-2022 CASE MANAGEM Normal [facility] NURSING PROGon 11-15-2022 NURSING PROG Normal [facility] CASE MANAGEMon 11-14-2022 CASE MANAGEM Normal [facility] THERAPY NTon 11-14-2022 THERAPY NT Normal [facility] THERAPY NT Normal [facility] THERAPY NT Normal [facility] TSH SerPl-aCncon 11-14-2022 TSH Qn 0.843 m[IU]/L Normal 0.270-4.200 [facility] Comment on above: Order Comment: Speci men Type: BLOOD SPECIMENOrdering Facility: [facility] Address: [address] [place] [phone] Performed By: #### 3 016-3 ####[facility]ORATORYCLIA [id number] [address] [place] CASE MANAGEMon 11-13-2022 CASE MANAGEM Normal [facility] CONSULTon 11-13-2022 CONSULT Normal [facility] NURSING PROGon 11-13-2022 NURSING PROG Normal [facility] NURSING PROG Normal [facility] CASE MANAGEMon 11-12-2022 CASE MANAGEM Normal [facility] NURSING PROGon 11-12-2022 NURSING PROG Normal [facility] NURSING PROG Normal [facility] NURSING PROG Normal [facility] CASE MGT INIT ASSESon 2022 CASE MGT INIT ASSES Normal [facility] NURSING PROGon 11-11-2022 NURSING PROG Normal [facility] NURSING PROG Normal [facility] NUTRITIONon 11-11-2022 NUTRITION Normal [facility] THERAPY NTon 11-11-2022 THERAPY NT Normal [facility] THERAPY NT Normal [facility] Urinalysis complete pnl Uron 11-11-2022 Urinalysis complete panel (U) Abnormal [facility] Comment on above: Order Comment: Speci men Type: URINE SPECIMENOrdering Facility: [facility] Address: [address] [place] [place] [phone] Performed By: #### 2 4356-8 ####[facility]ORATORYCLIA [id number] [place] [address] [place] Basic metabolic 2000 panelon 11-10-2022 Anion gap [Moles/Vol] 14 mmol/L Normal 9-18 [facility] Comment on above: Order Comment: Speci men Type: BLOOD SPECIMENOrdering Facility: [facility] Address: [address] [address] Performed By: #### 2 4321-2, 75479-9 ####[facility]ORATORYCLIA [id number] [place] [address] [place] Calcium [Mass/Vol] 8.7 mg/dL Normal 8.5-10.2 [facility] Comment on above: Order Comment: Speci men Type: BLOOD SPECIMENOrdering Facility: [facility] Address: [address] [place] [address] Performed By: #### 2 4321-2, 90855-4 ####[facility]ORATORYCLIA [id number] [place] [address] [place] Chloride [Moles/Vol] 94 mmol/L Low 97-105 [facility] Comment on above: Order Comment: Speci men Type: BLOOD SPECIMENOrdering Facility: [facility] Address: [address] [place] [address] Performed By: #### 2 4321-2, 80636-3 ####[facility]ORATORYCLIA [id number] [place] [address] [place] CO2 [Moles/Vol] 26 mmol/L Normal 22-30 [facility] Comment on above: Order Comment: Speci men Type: BLOOD SPECIMENOrdering Facility: [facility] Address: [address] [place] [address] Performed By: #### 2 4321-2, 00486-1 ####[facility]ORATORYCLIA [id number] [place] [address] [place] Creatinine [Mass/Vol] 1.39 mg/dL High 0.58-0.96 [facility] Comment on above: Order Comment: Speci men Type: BLOOD SPECIMENOrdering Facility: [facility] Address: [address] [place] [address] Performed By: #### 2 4321-2, 10573-4 ####[facility]ORATORYCLIA [id number] [place] [address] [place] ESTIMATED GLOMERULAR FILTRATION RATE 42 mL/min/1.73m??? Low >=60 [facility] Comment on above: Order Comment: Scott seals Type: BLOOD SPECIMENOrdering Facility: [facility] Address: [address] [place] [address] Result Comment: Petra mated Glomerular Filtration Rate [...] actual GFR. Performed By: #### 2 4321-2, 04475-6 ####[facility]ORATORYCLIA [id number] [place] [address] [place] Glucose [Mass/Vol] 317 mg/dL High 74-99 [facility] Comment on above: Order Comment: Scott seals Type: BLOOD SPECIMENOrdering Facility: [facility] Address: [address] [place] [address] Result Comment: The [place] [employer] (ADA) provides guidance for cutoff [...] Standards of Medical Care in Diabetes 2016, [place] [employer]. Diabetes Care. 2016.39(Suppl 1). Performed By: #### 2 4321-2, 98780-1 ####[facility]ORATORYCLIA [id number] [place] [address] [place] Potassium [Moles/Vol] 4.3 mmol/L Normal 3.7-5.1 [facility] Comment on above: Order Comment: Speci men Type: BLOOD SPECIMENOrdering Facility: [facility] Address: [address] [place] [address] Performed By: #### 2 4321-2, 47431-3 ####[facility]ORATORYCLIA [id number] [address] STATES OF [facility] Sodium [Moles/Vol] 134 mmol/L Low 136-144 [facility] Comment on above: Order Comment: Speci men Type: BLOOD SPECIMENOrdering Facility: [facility] Address: [address] [place] [address] Performed By: #### 2 4321-2, 80467-3 ####[facility]ORATORYCLIA [id number] [address] Urea nitrogen [Mass/Vol] 31 mg/dL High 7-21 [facility] Comment on above: Order Comment: Speci men Type: BLOOD SPECIMENOrdering Facility: [facility] Address: [address] [place] [address] Performed By: #### 2 4321-2, 83715-0 ####[facility] LABORATORYCLIA [id number] [address] CBC W Auto Differential pane l (Bld)on 11-10-2022 Basophils (Bld) [#/Vol] 0.05 10*3/uL Normal <0.11 [facility] Comment on above: Order Comment: Speci men Type: BLOOD SPECIMENOrdering Facility: [facility] Address: [address] [place] [address] Result Comment: Diff erential confirmed by visual scan of peripheral blood smear slide. Performed By: #### 5 7021-8 ####[facility]ORATORYCLIA [id number] [address] Basophils/100 WBC (Bld) 0.6 % Normal A [facility] Comment on above: Order Comment: Speci men Type: BLOOD SPECIMENOrdering Facility: [facility] Address: [address] [place] [address] Performed By: #### 5 7021-8 ####[facility]ORATORYCLIA [id number] [address] Differential cell count method Nom (Bld) Auto Normal [facility] Comment on above: Order Comment: Speci men Type: BLOOD SPECIMENOrdering Facility: [facility] Address: [address] [place] [address] Performed By: #### 5 7021-8 ####[facility] LABORATORYCLIA [id number] [address] Eosinophils (Bld) [#/Vol] 0.24 10*3/uL Normal <0.46 [facility] Comment on above: Order Comment: Speci men Type: BLOOD SPECIMENOrdering Facility: [facility] Address: [address] [place] [address] Performed By: #### 5 7021-8 ####[facility]ORATORYCLIA [id number] [address] Eosinophils/100 WBC (Bld) 3.0 % Normal [facility] Comment on above: Order Comment: Speci men Type: BLOOD SPECIMENOrdering Facility: [facility] Address: [address] [place] [address] Performed By: #### 5 7021-8 ####[facility]ORATORYCLIA [id number] [address] Erythrocyte distribution width (RBC) [Ratio] 14.2 % Normal 11.5-15.0 [facility] Comment on above: Order Comment: Speci men Type: BLOOD SPECIMENOrdering Facility: [facility] Address: [address] [place] [address] Performed By: #### 5 7021-8 ####[facility] LABORATORYCLIA [id number] [address] Hematocrit (Bld) [Volume fraction] 30.3 % Low 36.0-46.0 [facility] Comment on above: Order Comment: Speci men Type: BLOOD SPECIMENOrdering Facility: [facility] Address: [address] [place] [address] Performed By: #### 5 7021-8 ####[facility]ORATORYCLIA [id number] [place] [address] [place] Hemoglobin (Bld) [Mass/Vol] 9.3 g/dL Low 11.5-15.5 [facility] Comment on above: Order Comment: Speci men Type: BLOOD SPECIMENOrdering Facility: [facility] Address: [address] [place] [address] Performed By: #### 5 7021-8 ####[facility] LABORATORYCLIA [id number] [address] [place] Immature granulocytes (Bld) [#/Vol] 0.29 10*3/uL High <0.10 [facility] Comment on above: Order Comment: Speci men Type: BLOOD SPECIMENOrdering Facility: [facility] Address: [address] [place] [address] Performed By: #### 5 7021-8 ####[facility]ORATORYCLIA [id number] [address] [place] Immature granulocytes/100 WBC (Bld) 3.6 % Normal [facility] Comment on above: Order Comment: Speci men Type: BLOOD SPECIMENOrdering Facility: [facility] Address: [address] [place] [address] Performed By: #### 5 7021-8 ####[facility]ORATORYCLIA [id number] [place] [address] [place] Lymphocytes (Bld) [#/Vol] 1.61 10*3/uL Normal 1.00-4.00 [facility] Comment on above: Order Comment: Speci men Type: BLOOD SPECIMENOrdering Facility: [facility] Address: [address] [place] [address] Performed By: #### 5 7021-8 ####[facility]ORATORYCLIA [id number] [address] OF [place] Lymphocytes/100 WBC (Bld) 20.0 % Normal [facility] Comment on above: Order Comment: Speci men Type: BLOOD SPECIMENOrdering Facility: [facility] Address: [address] [place] [address] Performed By: #### 5 7021-8 ####[facility]ORATORYCLIA [id number] [address] STATES OF [facility] MCH (RBC) [Entitic mass] 29.4 pg Normal 26.0-34.0 [facility] Comment on above: Order Comment: Speci men Type: BLOOD SPECIMENOrdering Facility: [facility] Address: [address] [place] [address] Performed By: #### 5 7021-8 ####[facility]ORATORYCLIA [id number] [address] OF [place] MCHC (RBC) [Mass/Vol] 30.7 g/dL Normal 30.5-36.0 [facility] Comment on above: Order Comment: Speci men Type: BLOOD SPECIMENOrdering Facility: [facility] Address: [address] [place] [address] Performed By: #### 5 7021-8 ####[facility] LABORATORYCLIA [id number] [address] MCV (RBC) [Entitic vol] 95.9 fL Normal 80.0-100.0 A [facility] Comment on above: Order Comment: Speci men Type: BLOOD SPECIMENOrdering Facility: [facility] Address: [address] [place] [address] Performed By: #### 5 7021-8 ####[facility]ORATORYCLIA [id number] [address] Monocytes (Bld) [#/Vol] 1.01 10*3/uL High <0.87 [facility] Comment on above: Order Comment: Speci men Type: BLOOD SPECIMENOrdering Facility: [facility] Address: [address] [place] [address] Performed By: #### 5 7021-8 ####[facility]ATORYCLIA [id number] [address] [place] Monocytes/100 WBC (Bld) 12.6 % Normal A [facility] Comment on above: Order Comment: Speci men Type: BLOOD SPECIMENOrdering Facility: [facility] Address: [address] [place] [address] Performed By: #### 5 7021-8 ####[facility] LABORATORYCLIA [id number] [address] [place] Neutrophils (Bld) [#/Vol] 4.84 10*3/uL Normal 1.45-7.50 [facility] Comment on above: Order Comment: Speci men Type: BLOOD SPECIMENOrdering Facility: [facility] Address: [address] [place] [address] Performed By: #### 5 7021-8 ####[facility]ATORYCLIA [id number] [address] Neutrophils/100 WBC (Bld) 60.2 % Normal [facility] Comment on above: Order Comment: Speci men Type: BLOOD SPECIMENOrdering Facility: [facility] Address: [address] [place] [address] Performed By: #### 5 7021-8 ####[facility]ATORYCLIA [id number] [address] [place] Nucleated RBC (Bld) [#/Vol] 0.03 10*3/uL High <0.01 [facility] Comment on above: Order Comment: Speci men Type: BLOOD SPECIMENOrdering Facility: [facility] Address: [address] [place] [address] Performed By: #### 5 7021-8 ####[facility]ATORYCLIA [id number] [address] OF [place] Nucleated RBC/100 WBC (Bld) [Ratio] 0.4 /100 WBC Normal [facility] Comment on above: Order Comment: Speci men Type: BLOOD SPECIMENOrdering Facility: [facility] Address: [address] [address] Performed By: #### 5 7021-8 ####[facility]ORATORYCLIA [id number] [address] [place] Platelet mean volume (Bld) [Entitic vol] 8.6 fL Low 9.0-12.7 [facility] Comment on above: Order Comment: Speci men Type: BLOOD SPECIMENOrdering Facility: [facility] Address: [address] [address] Performed By: #### 5 7021-8 ####[facility]ORATORYCLIA [id number] [address] [place] Platelets (Bld) [#/Vol] 389 10*3/uL Normal 150-400 [facility] Comment on above: Order Comment: Speci men Type: BLOOD SPECIMENOrdering Facility: [facility] Address: [address] [address] Performed By: #### 5 7021-8 ####[facility]ORATORYCLIA [id number] [place] [address] [place] RBC (Bld) [#/Vol] 3.16 10*6/uL Low 3.90-5.20 [facility] Comment on above: Order Comment: Speci men Type: BLOOD SPECIMENOrdering Facility: [facility] Address: [address] [address] Performed By: #### 5 7021-8 ####[facility]ATORYCLIA [id number] [address] [place] WBC (Bld) [#/Vol] 8.04 10*3/uL Normal 3.70-11.00 [facility] Comment on above: Order Comment: Speci men Type: BLOOD SPECIMENOrdering Facility: [facility] Address: [address] [place] [address] Performed By: #### 5 7021-8 ####[facility]ORATORYCLIA [id number] [address] CONSULT PROGon 11-10-2022 CONSULT PROG Normal [facility] ECG COMPLETEon 11-10-2022 ECG COMPLETE Normal [facility] ED NOTEon 11-10-2022 ED NOTE HNO ID: [id number] Author: Akua Loyola RN Service: Emergency Medicine Author Type: Registered Nurse Type: ED Notes Filed: 11/10/2022 2:22 PM Note Text: Attempted report. RN unavailable. Normal [facility] ED NOTE Normal [facility] ED NOTE HNO ID: [id number] Author: Nawaf Davis RN Service: Emergency Medicine Author Type: Registered Nurse Type: ED Notes Filed: 11/10/2022 3:03 AM Note Text: Spoke to MD about 3rd Troponin. Told not to worry about drawing it at this moment Normal [facility] ED NOTE HNO ID: [id number] Author: Nawaf Davis RN Service: Emergency Medicine Author Type: Registered Nurse Type: ED Notes Filed: 11/10/2022 12:05 AM Note Text: MD made aware of need for US IV Normal [facility] ED NOTE HNO ID: [id number] Author: Nawaf Davis RN Service: Emergency Medicine Author Type: Registered Nurse Type: ED Notes Filed: 11/09/2022 10:25 PM Note Text: Dressing applied to Coccyx at this time Normal [facility] ED NOTE HNO ID: [id number] Author: Atilio Acosta RN Service: ? Author Type: Registered Nurse Type: ED Notes Filed: 11/09/2022 10:11 PM Note Text: Bed: 20-ED Expected date: Expected time: Means of arrival: Comments: squad Normal [facility] ED PROV NOTEon 11-10-2022 ED PROV NOTE Normal [facility] FLUABV+SARS-CoV-2+RSV Pnl Re sp IGGY+probeon 11-10-2022 FLUABV+SARS-CoV-2+RSV Pnl Resp IGGY+probe Normal [facility] Comment on above: Performed By: #### 9 5941-1 ####[facility]ORATORYCLIA [id number] [place] [address] [place] HIGH SENSITIVITY TROPONIN T (INITIAL)on 11-10-2022 HIGH SENSITIVITY MARIE 89 ng/L High <12 [facility] Comment on above: Order Comment: Scott seals Type: BLOOD SPECIMENOrdering Facility: [facility] Address: [address] [place] [address] Result Comment: When assessing risk for acute [...] 30 day MACE. Performed By: #### L [id number] ####[facility]ATORYCLIA [id number] [address] HIGH SENSITIVITY TROPONIN T (SECOND)on 11-10-2022 HIGH SENSITIVITY MARIE 89 ng/L High <12 [facility] Comment on above: Order Comment: Scott seals Type: BLOOD SPECIMENOrdering Facility: [facility] Address: [address] [place] [address] Result Comment: When assessing risk for acute [...] 30 day MACE. Performed By: #### L [id number] ####[facility]ORATORYCLIA [id number] [address] OF [facility] HISTORY PHYSICALon HISTORY PHYSICAL Normal [facility] Natriuretic peptide.B prohormone N-Terminal [Mass/Vol] 356 pg/mL High <125 [facility] Comment on above: Order Comment: Scott seals Type: BLOOD SPECIMENOrdering Facility: [facility] Address: [address] [place] [address] Performed By: #### 2 4321-2, 11893-0 ####[facility]ORATORYCLIA [id number] [address] OF [place] NURSING PROGon 11-10-2022 NURSING PROG Normal [facility] XR CHEST 1V FRONTALon 2022 XR CHEST 1V FRONTAL Normal [facility] XR SHLDR >/=3V AP/KEKE AP/OTH R RTon 11-10-2022 XR SHLDR >/=3V AP/KEKE AP/OTHR RT Normal [facility] CNPNon 11-09-2022 CNPN Normal [facility] CNPTOUTREACHon 11-09-2022 CNPTOUTREACH Normal [facility] CNPNon 10-31-2022 CNPN Normal [facility] CNPTOUTREACHon 10-31-2022 CNPTOUTREACH Normal [facility] CNPNon 10-29-2022 CNPN Normal [facility] CASE MANAGEMon 10-28-2022 CASE MANAGEM Normal [facility] CASE MANAGEM Normal [facility] CNDSon 10-28-2022 CNDS Normal [facility] SARS-CoV-2 RNA Resp Ql IGGY+p robeon 10-28-2022 SARS-CoV-2 (COVID-19) RNA IGGY+probe Ql (Resp) COVID 19 RESULT: SARS-CoV-2 (Agent of COVID-19) Not Detected by RT-PCR or equivalent method. This test has been authorized by FDA under an Emergency Use Authorization (EUA). Normal [facility] Comment on above: Performed By: #### 9 4500-6 ####[facility]ORATORYCLIA [id number] [place] [address] [facility] [place] CASE MANAGEMon 10-27-2022 CASE MANAGEM Normal [facility] CASE MANAGEM Normal [facility] CASE MANAGEM Normal [facility] THERAPY NTon 10-27-2022 THERAPY NT Normal [facility] THERAPY NT Normal [facility] CASE MANAGEMon 10-26-2022 CASE MANAGEM Normal [facility] CONSULT PROGon 10-25-2022 CONSULT PROG Normal [facility] ALLIED HEALTHon 10-24-2022 ALLIED HEALTH Normal [facility] CASE MANAGEMon 10-24-2022 CASE MANAGEM Normal [facility] CBC W Auto Differential pane l (Bld)on 10-24-2022 Anisocytosis Ql (Bld) Present Normal [facility] Comment on above: Order Comment: Speci men Type: BLOOD SPECIMENOrdering Facility: [facility] Address: [address] [place] [address] Performed By: #### 5 7021-8 ####[facility]ORATORYCLIA [id number] [place] [address] [place] Basophils (Bld) [#/Vol] 0.00 10*3/uL Normal <0.11 [facility] Comment on above: Order Comment: Speci men Type: BLOOD SPECIMENOrdering Facility: [facility] Address: [address] [place] [address] Performed By: #### 5 7021-8 ####[facility]ORATORYCLIA [id number] [place] [address] [place] Basophils/100 WBC (Bld) 0.0 % Normal A [facility] Comment on above: Order Comment: Speci men Type: BLOOD SPECIMENOrdering Facility: [facility] Address: [address] [place] [address] Performed By: #### 5 7021-8 ####[facility]ATORYCLIA [id number] [place] [address] [place] Differential cell count method Nom (Bld) Manual Normal [facility] Comment on above: Order Comment: Speci men Type: BLOOD SPECIMENOrdering Facility: [facility] Address: [address] [place] [address] Performed By: #### 5 7021-8 ####[facility]ATORYCLIA [id number] [place] [address] [place] Eosinophils (Bld) [#/Vol] 0.18 10*3/uL Normal <0.46 [facility] Comment on above: Order Comment: Speci men Type: BLOOD SPECIMENOrdering Facility: [facility] Address: [address] [address] Performed By: #### 5 7021-8 ####[facility]ORATORYCLIA [id number] [address] [place] Eosinophils/100 WBC (Bld) 2.0 % Normal [facility] Comment on above: Order Comment: Speci men Type: BLOOD SPECIMENOrdering Facility: [facility] Address: [address] [address] Performed By: #### 5 7021-8 ####[facility]ORATORYCLIA [id number] [address] [place] Erythrocyte distribution width (RBC) [Ratio] 14.9 % Normal 11.5-15.0 [facility] Comment on above: Order Comment: Speci men Type: BLOOD SPECIMENOrdering Facility: [facility] Address: [address] [place] [address] Performed By: #### 5 7021-8 ####[facility]ORATORYCLIA [id number] [address] [place] Hematocrit (Bld) [Volume fraction] 28.4 % Low 36.0-46.0 [facility] Comment on above: Order Comment: Speci men Type: BLOOD SPECIMENOrdering Facility: [facility] Address: [address] [place] [address] Performed By: #### 5 7021-8 ####[facility]ORATORYCLIA [id number] [address] [place] Hemoglobin (Bld) [Mass/Vol] 8.7 g/dL Low 11.5-15.5 [facility] Comment on above: Order Comment: Speci men Type: BLOOD SPECIMENOrdering Facility: [facility] Address: [address] [place] [address] Performed By: #### 5 7021-8 ####[facility]ORATORYCLIA [id number] [address] [place] Lymphocytes (Bld) [#/Vol] 1.84 10*3/uL Normal 1.00-4.00 [facility] Comment on above: Order Comment: Speci men Type: BLOOD SPECIMENOrdering Facility: [facility] Address: [address] [place] [address] Performed By: #### 5 7021-8 ####[facility]ORATORYCLIA [id number] [address] Lymphocytes/100 WBC (Bld) 4.0 % Normal [facility] Comment on above: Order Comment: Speci men Type: BLOOD SPECIMENOrdering Facility: [facility] Address: [address] [place] [address] Performed By: #### 5 7021-8 ####[facility]ORATORYCLIA [id number] [address] STATES OF [facility] [facility] MCH (RBC) [Entitic mass] 29.7 pg Normal 26.0-34.0 [facility] Comment on above: Order Comment: Speci men Type: BLOOD SPECIMENOrdering Facility: [facility] Address: [address] [place] [address] Performed By: #### 5 7021-8 ####[facility] LABORATORYCLIA [id number] [address] MCHC (RBC) [Mass/Vol] 30.6 g/dL Normal 30.5-36.0 [facility] Comment on above: Order Comment: Speci men Type: BLOOD SPECIMENOrdering Facility: [facility] Address: [address] [place] [address] Performed By: #### 5 7021-8 ####[facility] LABORATORYCLIA [id number] [address] [place] MCV (RBC) [Entitic vol] 96.9 fL Normal 80.0-100.0 [facility] Comment on above: Order Comment: Speci men Type: BLOOD SPECIMENOrdering Facility: [facility] Address: [address] [place] [address] Performed By: #### 5 7021-8 ####[facility] LABORATORYCLIA [id number] [address] [place] Metamyelocytes/100 WBC (Bld) 5.0 % Normal [facility] Comment on above: Order Comment: Speci men Type: BLOOD SPECIMENOrdering Facility: [facility] Address: [address] [place] [address] Performed By: #### 5 7021-8 ####[facility] LABORATORYCLIA [id number] [place] [address] [place] Monocytes (Bld) [#/Vol] 0.74 10*3/uL Normal <0.87 [facility] Comment on above: Order Comment: Speci men Type: BLOOD SPECIMENOrdering Facility: [facility] Address: [address] [place] [address] Performed By: #### 5 7021-8 ####[facility] LABORATORYCLIA [id number] [address] [place] Monocytes/100 WBC (Bld) 8.0 % Normal [facility] Comment on above: Order Comment: Speci men Type: BLOOD SPECIMENOrdering Facility: [facility] Address: [address] [place] [address] Performed By: #### 5 7021-8 ####[facility]ORATORYCLIA [id number] [address] [place] MYELO% 2.0 % Normal [facility] Comment on above: Order Comment: Speci men Type: BLOOD SPECIMENOrdering Facility: [facility] Address: [address] [place] [address] Performed By: #### 5 7021-8 ####[facility]ORATORYCLIA [id number] [place] [address] [place] Neutrophils (Bld) [#/Vol] 5.79 10*3/uL Normal 1.45-7.50 [facility] Comment on above: Order Comment: Speci men Type: BLOOD SPECIMENOrdering Facility: [facility] Address: [address] [place] [address] Performed By: #### 5 7021-8 ####[facility] LABORATORYCLIA [id number] [address] Neutrophils/100 WBC (Bld) 63.0 % Normal [facility] Comment on above: Order Comment: Speci men Type: BLOOD SPECIMENOrdering Facility: [facility] Address: [address] [place] [address] Performed By: #### 5 7021-8 ####[facility] LABORATORYCLIA [id number] [address] Nucleated RBC (Bld) [#/Vol] 10*3/uL Normal <0.01 [facility] Comment on above: Order Comment: Speci men Type: BLOOD SPECIMENOrdering Facility: [facility] Address: [address] [place] [address] Result Comment: This result was previously suppressed from the chart. Performed By: #### 5 7021-8 ####[facility] LABORATORYCLIA [id number] [address] Nucleated RBC/100 WBC (Bld) [Ratio] 0.0 /100 WBC Normal [facility] Comment on above: Order Comment: Speci men Type: BLOOD SPECIMENOrdering Facility: [facility] Address: [address] [place] [address] Performed By: #### 5 7021-8 ####[facility] LABORATORYCLIA [id number] [address] Ovalocytes LM Ql (Bld) Few Normal [facility] Comment on above: Order Comment: Speci men Type: BLOOD SPECIMENOrdering Facility: [facility] Address: [address] [place] [address] Performed By: #### 5 7021-8 ####[facility] LABORATORYCLIA [id number] [address] Platelet mean volume (Bld) [Entitic vol] 8.1 fL Low 9.0-12.7 [facility] Comment on above: Order Comment: Speci men Type: BLOOD SPECIMENOrdering Facility: [facility] Address: [address] [address] Performed By: #### 5 7021-8 ####[facility]ORATORYCLIA [id number] [address] [place] Platelets (Bld) [#/Vol] 352 10*3/uL Normal 150-400 [facility] Comment on above: Order Comment: Speci men Type: BLOOD SPECIMENOrdering Facility: [facility] Address: [address] [place] [address] Performed By: #### 5 7021-8 ####[facility] LABORATORYCLIA [id number] [address] [place] Platelets Estimate (Bld) [#/Vol] Adequate Normal [facility] Comment on above: Order Comment: Speci men Type: BLOOD SPECIMENOrdering Facility: [facility] Address: [address] [place] [address] Performed By: #### 5 7021-8 ####[facility] LABORATORYCLIA [id number] [address] [place] Polychromasia LM Ql (Bld) Slight Normal [facility] Comment on above: Order Comment: Speci men Type: BLOOD SPECIMENOrdering Facility: [facility] Address: [address] [place] [address] Performed By: #### 5 7021-8 ####[facility] LABORATORYCLIA [id number] [address] [place] RBC (Bld) [#/Vol] 2.93 10*6/uL Low 3.90-5.20 [facility] Comment on above: Order Comment: Speci men Type: BLOOD SPECIMENOrdering Facility: [facility] Address: [address] [place] [address] Performed By: #### 5 7021-8 ####[facility]ORATORYCLIA [id number] [address] [place] RED CELL MORPH Reviewed: see result s of individual morphologies Normal [facility] Comment on above: Order Comment: Speci men Type: BLOOD SPECIMENOrdering Facility: [facility] Address: [address] [place] [address] Performed By: #### 5 7021-8 ####[facility] LABORATORYCLIA [id number] [address] Variant lymphocytes/100 WBC (Bld) 16.0 % Normal [facility] Comment on above: Order Comment: Speci men Type: BLOOD SPECIMENOrdering Facility: [facility] Address: [address] [place] [address] Performed By: #### 5 7021-8 ####[facility] LABORATORYCLIA [id number] [address] WBC (Bld) [#/Vol] 9.19 10*3/uL Normal 3.70-11.00 [facility] Comment on above: Order Comment: Speci men Type: BLOOD SPECIMENOrdering Facility: [facility] Address: [address] [place] [address] Performed By: #### 5 7021-8 ####[facility] LABORATORYCLIA [id number] [address] Comprehensive metabolic 2000 panelon 10-24-2022 Albumin [Mass/Vol] 2.8 g/dL Low 3.9-4.9 [facility] Comment on above: Order Comment: Speci men Type: BLOOD SPECIMENOrdering Facility: [facility] Address: [address] [place] [address] Performed By: #### 2 4323-8 ####[facility] LABORATORYCLIA [id number] [address] ALP [Catalytic activity/Vol] 64 U/L Normal 34-123 [facility] Comment on above: Order Comment: Speci men Type: BLOOD SPECIMENOrdering Facility: [facility] Address: [address] [place] [address] Performed By: #### 2 4323-8 ####[facility] LABORATORYCLIA [id number] [place] [address] [place] ALT With P-5'-P [Catalytic activity/Vol] 16 U/L Normal 7-38 [facility] Comment on above: Order Comment: Speci men Type: BLOOD SPECIMENOrdering Facility: [facility] Address: [address] [place] [address] Performed By: #### 2 4323-8 ####[facility] LABORATORYCLIA [id number] [address] STATES OF [facility] Anion gap [Moles/Vol] 8 mmol/L Low 9-18 [facility] Comment on above: Order Comment: Speci men Type: BLOOD SPECIMENOrdering Facility: [facility] Address: [address] [place] [address] Performed By: #### 2 4323-8 ####[facility] LABORATORYCLIA [id number] [address] OF [facility] AST With P-5'-P [Catalytic activity/Vol] 15 U/L Normal 13-35 [facility] Comment on above: Order Comment: Speci men Type: BLOOD SPECIMENOrdering Facility: [facility] Address: [address] [place] [address] Performed By: #### 2 4323-8 ####[facility] LABORATORYCLIA [id number] [address] [place] Bilirubin [Mass/Vol] 0.3 mg/dL Normal 0.2-1.3 [facility] Comment on above: Order Comment: Speci men Type: BLOOD SPECIMENOrdering Facility: [facility] Address: [address] [place] [address] Performed By: #### 2 4323-8 ####[facility] LABORATORYCLIA [id number] [address] STATES OF [facility] Calcium [Mass/Vol] 8.9 mg/dL Normal 8.5-10.2 [facility] Comment on above: Order Comment: Speci men Type: BLOOD SPECIMENOrdering Facility: [facility] Address: [address] [place] [address] Performed By: #### 2 4323-8 ####[facility] LABORATORYCLIA [id number] [place] [address] [place] Chloride [Moles/Vol] 95 mmol/L Low 97-105 [facility] Comment on above: Order Comment: Speci men Type: BLOOD SPECIMENOrdering Facility: [facility] Address: [address] [place] [address] Performed By: #### 2 4323-8 ####[facility] LABORATORYCLIA [id number] [address] [place] CO2 [Moles/Vol] 35 mmol/L High 22-30 [facility] Comment on above: Order Comment: Speci men Type: BLOOD SPECIMENOrdering Facility: [facility] Address: [address] [place] [address] Performed By: #### 2 4323-8 ####[facility] LABORATORYCLIA [id number] [address] STATES OF [facility] Creatinine [Mass/Vol] 1.54 mg/dL High 0.58-0.96 [facility] Comment on above: Order Comment: Speci men Type: BLOOD SPECIMENOrdering Facility: [facility] Address: [address] [place] [address] Performed By: #### 2 4323-8 ####[facility] LABORATORYCLIA [id number] [address] [place] ESTIMATED GLOMERULAR FILTRATION RATE 37 mL/min/1.73m??? Low >=60 [facility] Comment on above: Order Comment: Speci men Type: BLOOD SPECIMENOrdering Facility: [facility] Address: [address] [place] [address] Result Comment: Petra mated Glomerular Filtration Rate [...] actual GFR. Performed By: #### 2 4323-8 ####[facility] LABORATORYCLIA [id number] [place] [address] [place] Glucose [Mass/Vol] 193 mg/dL High 74-99 [facility] Comment on above: Order Comment: Luhi men Type: BLOOD SPECIMENOrdering Facility: [facility] Address: [address] [place] [address] Result Comment: The [place] [employer] (ADA) provides guidance for cutoff [...] Standards of Medical Care in Diabetes 2016, [place] [employer]. Diabetes Care. 2016.39(Suppl 1). Performed By: #### 2 4323-8 ####[facility] LABORATORYCLIA [id number] [place] [address] [place] Potassium [Moles/Vol] 4.8 mmol/L Normal 3.7-5.1 [facility] Comment on above: Order Comment: Scott bozena Type: BLOOD SPECIMENOrdering Facility: [facility] Address: [address] [place] [address] Performed By: #### 2 4323-8 ####[facility] LABORATORYCLIA [id number] [place] [address] [place] Protein [Mass/Vol] 5.7 g/dL Low 6.3-8.0 [facility] Comment on above: Order Comment: Luhi bozena Type: BLOOD SPECIMENOrdering Facility: [facility] Address: [address] [place] [address] Performed By: #### 2 4323-8 ####[facility] LABORATORYCLIA [id number] [place] [address] [place] Sodium [Moles/Vol] 138 mmol/L Normal 136-144 [facility] Comment on above: Order Comment: Speci men Type: BLOOD SPECIMENOrdering Facility: [facility] Address: [address] [place] [address] Performed By: #### 2 4323-8 ####[facility] LABORATORYCLIA [id number] [place] [address] [place] Urea nitrogen [Mass/Vol] 36 mg/dL High 7-21 [facility] Comment on above: Order Comment: Speci men Type: BLOOD SPECIMENOrdering Facility: [facility] Address: [address] [place] [address] Performed By: #### 2 4323-8 ####[facility] LABORATORYCLIA [id number] [place] [address] [place] THERAPY NTon 10-24-2022 THERAPY NT Normal [facility] NUTRITIONon 10-23-2022 NUTRITION Normal [facility] Basic metabolic 2000 panelon 10-20-2022 Anion gap [Moles/Vol] 7 mmol/L Low 9-18 [facility] Comment on above: Order Comment: Speci men Type: BLOOD SPECIMENOrdering Facility: [facility] Address: [address] [place] [address] Performed By: #### 2 4321-2 ####[facility] LABORATORYCLIA [id number] [place] [address] [place] Calcium [Mass/Vol] 8.7 mg/dL Normal 8.5-10.2 [facility] Comment on above: Order Comment: Speci men Type: BLOOD SPECIMENOrdering Facility: [facility] Address: [address] [place] [address] Performed By: #### 2 4321-2 ####[facility] LABORATORYCLIA [id number] [place] [address] [place] Chloride [Moles/Vol] 98 mmol/L Normal 97-105 [facility] Comment on above: Order Comment: Speci men Type: BLOOD SPECIMENOrdering Facility: [facility] Address: [address] [address] Performed By: #### 2 4321-2 ####[facility] LABORATORYCLIA [id number] [address] [place] CO2 [Moles/Vol] 32 mmol/L High 22-30 [facility] Comment on above: Order Comment: Speci men Type: BLOOD SPECIMENOrdering Facility: [facility] Address: [address] [place] [address] Performed By: #### 2 4321-2 ####[facility] LABORATORYCLIA [id number] [address] [place] Creatinine [Mass/Vol] 1.57 mg/dL High 0.58-0.96 [facility] Comment on above: Order Comment: Speci men Type: BLOOD SPECIMENOrdering Facility: [facility] Address: [address] [place] [address] Performed By: #### 2 4321-2 ####[facility] [id number] [address] ESTIMATED GLOMERULAR FILTRATION RATE 36 mL/min/1.73m??? Low >=60 [facility] Comment on above: Order Comment: Speci men Type: BLOOD SPECIMENOrdering Facility: [facility] Address: [address] [place] [address] Result Comment: Petra mated Glomerular Filtration Rate [...] actual GFR. Performed By: #### 2 4321-2 ####[facility] LABORATORYCLIA [id number] [address] [place] Glucose [Mass/Vol] 201 mg/dL High 74-99 [facility] Comment on above: Order Comment: Speci men Type: BLOOD SPECIMENOrdering Facility: [facility] Address: [address] [address] Result Comment: The [place] Diabetes [employer] (ADA) provides guidance for cutoff [...] Standards of Medical Care in Diabetes 2016, [place] [employer]. Diabetes Care. 2016.39(Suppl 1). Performed By: #### 2 4321-2 ####[facility] LABORATORYCLIA [id number] [place] [address] [place] Potassium [Moles/Vol] 4.5 mmol/L Normal 3.7-5.1 [facility] Comment on above: Order Comment: Speci men Type: BLOOD SPECIMENOrdering Facility: [facility] Address: [address] [address] Performed By: #### 2 1-2 ####[facility] LABORATORYCLIA [id number] [place] [address] [place] Sodium [Moles/Vol] 137 mmol/L Normal 136-144 [facility] Comment on above: Order Comment: Speci men Type: BLOOD SPECIMENOrdering Facility: [facility] Address: [address] [address] Performed By: #### 2 1-2 ####[facility] LABORATORYCLIA [id number] [place] [address] [place] Urea nitrogen [Mass/Vol] 29 mg/dL High 7-21 [facility] Comment on above: Order Comment: Speci men Type: BLOOD SPECIMENOrdering Facility: [facility] Address: [address] [address] Performed By: #### 2 4321-2 ####[facility] LABORATORYCLIA [id number] [address] [place] CASE MANAGEMon 10-20-2022 CASE MANAGEM Normal [facility] CBC panel Auto (Bld)on 10-20 Erythrocyte distribution width (RBC) [Ratio] 14.8 % Normal 11.5-15.0 [facility] Comment on above: Order Comment: Speci men Type: BLOOD SPECIMENOrdering Facility: [facility] Address: [address] [place] [address] Performed By: #### 5 8410-2 ####[facility] LABORATORYCLIA [id number] [address] Hematocrit (Bld) [Volume fraction] 27.4 % Low 36.0-46.0 [facility] Comment on above: Order Comment: Speci men Type: BLOOD SPECIMENOrdering Facility: [facility] Address: [address] [place] [address] Performed By: #### 5 8410-2 ####[facility] LABORATORYCLIA [id number] [address] STATES OF [facility] Hemoglobin (Bld) [Mass/Vol] 8.4 g/dL Low 11.5-15.5 [facility] Comment on above: Order Comment: Speci men Type: BLOOD SPECIMENOrdering Facility: [facility] Address: [address] [place] [address] Performed By: #### 5 8410-2 ####[facility] LABORATORYCLIA [id number] [address] STATES [facility] MCH (RBC) [Entitic mass] 29.8 pg Normal 26.0-34.0 [facility] Comment on above: Order Comment: Speci men Type: BLOOD SPECIMENOrdering Facility: [facility] Address: [address] [place] [address] Performed By: #### 5 8410-2 ####[facility] LABORATORYCLIA [id number] [address] STATES [facility] MCHC (RBC) [Mass/Vol] 30.7 g/dL Normal 30.5-36.0 [facility] Comment on above: Order Comment: Speci men Type: BLOOD SPECIMENOrdering Facility: [facility] Address: [address] [place] [address] Performed By: #### 5 8410-2 ####[facility] LABORATORYCLIA [id number] [address] MCV (RBC) [Entitic vol] 97.2 fL Normal 80.0-100.0 [facility] Comment on above: Order Comment: Speci men Type: BLOOD SPECIMENOrdering Facility: [facility] Address: [address] [address] Performed By: #### 5 8410-2 ####[facility] LABORATORYCLIA [id number] [address] STATES OF [facility] Nucleated RBC (Bld) [#/Vol] 0.06 10*3/uL High <0.01 [facility] Comment on above: Order Comment: Speci men Type: BLOOD SPECIMENOrdering Facility: [facility] Address: [address] [place] [address] Performed By: #### 5 8410-2 ####[facility] LABORATORYCLIA [id number] [address] Platelet mean volume (Bld) [Entitic vol] 8.1 fL Low 9.0-12.7 [facility] Comment on above: Order Comment: Speci men Type: BLOOD SPECIMENOrdering Facility: [facility] Address: [address] [address] Performed By: #### 5 8410-2 ####[facility] LABORATORYCLIA [id number] [address] Platelets (Bld) [#/Vol] 303 10*3/uL Normal 150-400 [facility] Comment on above: Order Comment: Speci men Type: BLOOD SPECIMENOrdering Facility: [facility] Address: [address] [address] Performed By: #### 5 8410-2 ####[facility] LABORATORYCLIA [id number] [address] [place] RBC (Bld) [#/Vol] 2.82 10*6/uL Low 3.90-5.20 [facility] Comment on above: Order Comment: Speci men Type: BLOOD SPECIMENOrdering Facility: [facility] Address: [address] [place] [address] Performed By: #### 5 8410-2 ####[facility] LABORATORYCLIA [id number] [address] STATES OF [facility] WBC (Bld) [#/Vol] 8.51 10*3/uL Normal 3.70-11.00 [facility] Comment on above: Order Comment: Speci men Type: BLOOD SPECIMENOrdering Facility: [facility] Address: [address] [place] [address] Performed By: #### 5 8410-2 ####[facility] LABORATORYCLIA [id number] [address] CASE MANAGEMon 10-19-2022 CASE MANAGEM Normal [facility] CBC panel Auto (Bld)on 10-18 Erythrocyte distribution width (RBC) [Ratio] 14.8 % Normal 11.5-15.0 [facility] Comment on above: Order Comment: Speci men Type: BLOOD SPECIMENOrdering Facility: [facility] Address: [address] [place] [address] Performed By: #### 5 8410-2 ####[facility] LABORATORYCLIA [id number] [address] STATES OF [facility] Hematocrit (Bld) [Volume fraction] 27.8 % Low 36.0-46.0 [facility] Comment on above: Order Comment: Speci men Type: BLOOD SPECIMENOrdering Facility: [facility] Address: [address] [place] [address] Performed By: #### 5 8410-2 ####[facility] LABORATORYCLIA [id number] [place] [address] [place] Hemoglobin (Bld) [Mass/Vol] 8.3 g/dL Low 11.5-15.5 [facility] Comment on above: Order Comment: Speci men Type: BLOOD SPECIMENOrdering Facility: [facility] Address: [address] [place] [address] Performed By: #### 5 8410-2 ####[facility] LABORATORYCLIA [id number] [address] MCH (RBC) [Entitic mass] 30.4 pg Normal 26.0-34.0 [facility] Comment on above: Order Comment: Speci men Type: BLOOD SPECIMENOrdering Facility: [facility] Address: [address] [place] [address] Performed By: #### 5 8410-2 ####[facility] LABORATORYCLIA [id number] [address] OF [facility] MCHC (RBC) [Mass/Vol] 29.9 g/dL Low 30.5-36.0 [facility] Comment on above: Order Comment: Speci men Type: BLOOD SPECIMENOrdering Facility: [facility] Address: [address] [place] [address] Performed By: #### 5 8410-2 ####[facility] LABORATORYCLIA [id number] [address] MCV (RBC) [Entitic vol] 101.8 fL High 80.0-100.0 [facility] Comment on above: Order Comment: Speci men Type: BLOOD SPECIMENOrdering Facility: [facility] Address: [address] [place] [address] Performed By: #### 5 8410-2 ####[facility] LABORATORYCLIA [id number] [address] Nucleated RBC (Bld) [#/Vol] 0.03 10*3/uL High <0.01 [facility] Comment on above: Order Comment: Speci men Type: BLOOD SPECIMENOrdering Facility: [facility] Address: [address] [place] [address] Performed By: #### 5 8410-2 ####[facility]ORATORYCLIA [id number] [address] Platelet mean volume (Bld) [Entitic vol] 9.1 fL Normal 9.0-12.7 [facility] Comment on above: Order Comment: Speci men Type: BLOOD SPECIMENOrdering Facility: [facility] Address: [address] [place] [address] Performed By: #### 5 8410-2 ####[facility] LABORATORYCLIA [id number] [address] [place] Platelets (Bld) [#/Vol] 246 10*3/uL Normal 150-400 [facility] Comment on above: Order Comment: Speci men Type: BLOOD SPECIMENOrdering Facility: [facility] Address: [address] [place] [address] Performed By: #### 5 8410-2 ####[facility] LABORATORYCLIA [id number] [address] [place] RBC (Bld) [#/Vol] 2.73 10*6/uL Low 3.90-5.20 [facility] Comment on above: Order Comment: Speci men Type: BLOOD SPECIMENOrdering Facility: [facility] Address: [address] [place] [address] Performed By: #### 5 8410-2 ####[facility]ORATORYCLIA [id number] [place] [address] [place] WBC (Bld) [#/Vol] 7.07 10*3/uL Normal 3.70-11.00 [facility] Comment on above: Order Comment: Speci men Type: BLOOD SPECIMENOrdering Facility: [facility] Address: [address] [place] [address] Performed By: #### 5 8410-2 ####[facility]ORATORYCLIA [id number] [address] [place] NURSING PROGon 10-18-2022 NURSING PROG Normal [facility] THERAPY NTon 10-18-2022 THERAPY NT Normal [facility] THERAPY NT Normal [facility] Basic metabolic 2000 panelon 10-17-2022 Anion gap [Moles/Vol] 10 mmol/L Normal 9-18 [facility] Comment on above: Order Comment: Speci men Type: BLOOD SPECIMENOrdering Facility: [facility] Address: [address] [place] [address] Performed By: #### 2 4321-2 ####[facility]ATORYCLIA [id number] [place] [address] [place] Calcium [Mass/Vol] 8.5 mg/dL Normal 8.5-10.2 [facility] Comment on above: Order Comment: Speci men Type: BLOOD SPECIMENOrdering Facility: [facility] Address: [address] [place] [address] Performed By: #### 2 4321-2 ####[facility]ORATORYCLIA [id number] [place] [address] [place] Chloride [Moles/Vol] 99 mmol/L Normal 97-105 [facility] Comment on above: Order Comment: Speci men Type: BLOOD SPECIMENOrdering Facility: [facility] Address: [address] [place] [address] Performed By: #### 2 4321-2 ####[facility]ORATORYCLIA [id number] [place] [address] [place] CO2 [Moles/Vol] 28 mmol/L Normal 22-30 [facility] Comment on above: Order Comment: Speci men Type: BLOOD SPECIMENOrdering Facility: [facility] Address: [address] [place] [address] Performed By: #### 2 4321-2 ####[facility]ORATORYCLIA [id number] [place] [address] [place] Creatinine [Mass/Vol] 1.62 mg/dL High 0.58-0.96 [facility] Comment on above: Order Comment: Speci men Type: BLOOD SPECIMENOrdering Facility: [facility] Address: [address] [address] Performed By: #### 2 4321-2 ####[facility] [id number] [place] [id number] [facility] ESTIMATED GLOMERULAR FILTRATION RATE 35 mL/min/1.73m??? Low >=60 [facility] Comment on above: Order Comment: Scott seals Type: BLOOD SPECIMENOrdering Facility: [facility] Address: [address] [place] [address] Result Comment: Petra mated Glomerular Filtration Rate [...] actual GFR. Performed By: #### 2 4321-2 ####[facility]IA [id number] [place] [address] [place] Glucose [Mass/Vol] 164 mg/dL High 74-99 [facility] Comment on above: Order Comment: Scott seals Type: BLOOD SPECIMENOrdering Facility: [facility] Address: [address] [place] [address] Result Comment: The [place] [employer] (ADA) provides guidance for cutoff [...] Standards of Medical Care in Diabetes 2016, [place] [employer]. Diabetes Care. 2016.39(Suppl 1). Performed By: #### 2 4321-2 ####[facility]ORATORYCLIA [id number] [place] [id number] [place] Potassium [Moles/Vol] 3.3 mmol/L Low 3.7-5.1 [facility] Comment on above: Order Comment: Speci men Type: BLOOD SPECIMENOrdering Facility: [facility] Address: [address] [place] [address] Performed By: #### 2 4321-2 ####[facility] LABORATORYCLIA [id number] [address] STATES [facility] Sodium [Moles/Vol] 137 mmol/L Normal 136-144 [facility] Comment on above: Order Comment: Speci men Type: BLOOD SPECIMENOrdering Facility: [facility] Address: [address] [place] [address] Performed By: #### 2 4321-2 ####[facility]ORATORYCLIA [id number] [address] [place] [facility] Urea nitrogen [Mass/Vol] 41 mg/dL High 7-21 [facility] Comment on above: Order Comment: Speci men Type: BLOOD SPECIMENOrdering Facility: [facility] Address: [address] [place] [address] Performed By: #### 2 4321-2 ####[facility]ORATORYCLIA [id number] [address] CBC panel Auto (Bld)on 10-17 Erythrocyte distribution width (RBC) [Ratio] 14.6 % Normal 11.5-15.0 [facility] Comment on above: Order Comment: Speci men Type: BLOOD SPECIMENOrdering Facility: [facility] Address: [address] [place] [address] Performed By: #### 5 8410-2 ####[facility]ORATORYCLIA [id number] [address] Hematocrit (Bld) [Volume fraction] 27.7 % Low 36.0-46.0 [facility] Comment on above: Order Comment: Speci men Type: BLOOD SPECIMENOrdering Facility: [facility] Address: [address] [place] [address] Performed By: #### 5 8410-2 ####[facility]ORATORYCLIA [id number] [address] Hemoglobin (Bld) [Mass/Vol] 8.5 g/dL Low 11.5-15.5 [facility] Comment on above: Order Comment: Speci men Type: BLOOD SPECIMENOrdering Facility: [facility] Address: [address] [place] [address] Performed By: #### 5 8410-2 ####[facility]ATORYCLIA [id number] [address] MCH (RBC) [Entitic mass] 29.9 pg Normal 26.0-34.0 [facility] Comment on above: Order Comment: Speci men Type: BLOOD SPECIMENOrdering Facility: [facility] Address: [address] [place] [address] Performed By: #### 5 8410-2 ####[facility]ORATORYCLIA [id number] [address] MCHC (RBC) [Mass/Vol] 30.7 g/dL Normal 30.5-36.0 [facility] Comment on above: Order Comment: Speci men Type: BLOOD SPECIMENOrdering Facility: [facility] Address: [address] [place] [address] Performed By: #### 5 8410-2 ####[facility]ORATORYCLIA [id number] [address] MCV (RBC) [Entitic vol] 97.5 fL Normal 80.0-100.0 [facility] Comment on above: Order Comment: Speci men Type: BLOOD SPECIMENOrdering Facility: [facility] Address: [address] [place] [address] Performed By: #### 5 8410-2 ####[facility]ORATORYCLIA [id number] [address] Nucleated RBC (Bld) [#/Vol] 0.03 10*3/uL High <0.01 [facility] Comment on above: Order Comment: Speci men Type: BLOOD SPECIMENOrdering Facility: [facility] Address: [address] [place] [address] Performed By: #### 5 8410-2 ####[facility]ORATORYCLIA [id number] [place] [address] [place] Platelet mean volume (Bld) [Entitic vol] 8.3 fL Low 9.0-12.7 [facility] Comment on above: Order Comment: Speci men Type: BLOOD SPECIMENOrdering Facility: [facility] Address: [address] [place] [address] Performed By: #### 5 8410-2 ####[facility]ORATORYCLIA [id number] [address] [place] Platelets (Bld) [#/Vol] 275 10*3/uL Normal 150-400 [facility] Comment on above: Order Comment: Speci men Type: BLOOD SPECIMENOrdering Facility: [facility] Address: [address] [place] [address] Performed By: #### 5 8410-2 ####[facility]ORATORYCLIA [id number] [place] [address] [place] RBC (Bld) [#/Vol] 2.84 10*6/uL Low 3.90-5.20 [facility] Comment on above: Order Comment: Speci men Type: BLOOD SPECIMENOrdering Facility: [facility] Address: [address] [place] [address] Performed By: #### 5 8410-2 ####[facility]ATORYCLIA [id number] [place] [address] [place] WBC (Bld) [#/Vol] 6.41 10*3/uL Normal 3.70-11.00 [facility] Comment on above: Order Comment: Speci men Type: BLOOD SPECIMENOrdering Facility: [facility] Address: [address] [place] [address] Performed By: #### 5 8410-2 ####[facility]ORATORYCLIA [id number] [place] [address] [place] ALLIED HEALTHon 10-16-2022 ALLIED HEALTH Normal [facility] Basic metabolic 2000 panelon 10-16-2022 Anion gap [Moles/Vol] 13 mmol/L Normal 9-18 [facility] Comment on above: Order Comment: Speci men Type: BLOOD SPECIMENOrdering Facility: [facility] Address: [address] [place] [address] Performed By: #### 2 4321-2, 78389-7, 44852-2, 43355-9, 3016-3 ####[facility]ORATORYCLIA [id number] [place] [id number] [place] Calcium [Mass/Vol] 9.2 mg/dL Normal 8.5-10.2 [facility] Comment on above: Order Comment: Speci men Type: BLOOD SPECIMENOrdering Facility: [facility] Address: [address] [place] [address] Performed By: #### 2 4321-2, 82036-4, 15072-9, 50666-7, 3016-3 ####[facility]ORATORYCLIA [id number] [place] [id number] [place] Chloride [Moles/Vol] 98 mmol/L Normal 97-105 [facility] Comment on above: Order Comment: Speci men Type: BLOOD SPECIMENOrdering Facility: [facility] Address: [address] [place] [address] Performed By: #### 2 4321-2, 05068-3, 70829-0, 06440-3, 3016-3 ####[facility]ORATORYCLIA [id number] [place] [id number] [place] CO2 [Moles/Vol] 28 mmol/L Normal 22-30 [facility] Comment on above: Order Comment: Speci men Type: BLOOD SPECIMENOrdering Facility: [facility] Address: [address] [place] [address] Performed By: #### 2 4321-2, 04676-2, 30968-7, 33751-9, 3016-3 ####[facility]ITALCLIA [id number] [place] [address] [place] [facility] Creatinine [Mass/Vol] 1.61 mg/dL High 0.58-0.96 [facility] Comment on above: Order Comment: Speci bozena Type: BLOOD SPECIMENOrdering Facility: [facility] Address: [address] [place] [address] Performed By: #### 2 4321-2, 52330-9, 29570-7, 71812-3, 6-3 ####[facility]IA [id number] [place] [address] [place] ESTIMATED GLOMERULAR FILTRATION RATE 35 mL/min/1.73m??? Low >=60 [facility] Comment on above: Order Comment: Scott seals Type: BLOOD SPECIMENOrdering Facility: [facility] Address: [address] [place] [address] Result Comment: Petra mated Glomerular Filtration Rate [...] actual GFR. Performed By: #### 2 4321-2, 00094-6, 49314-2, 97009-2, 6-3 ####[facility]ATORYCLIA [id number] [place] [address] [place] Glucose [Mass/Vol] 173 mg/dL High 74-99 [facility] Comment on above: Order Comment: Luhi bozena Type: BLOOD SPECIMENOrdering Facility: [facility] Address: [address] [place] [address] Result Comment: The [place] [employer] (ADA) provides guidance for cutoff [...] Standards of Medical Care in Diabetes 2016, [place] [employer]. Diabetes Care. 2016.39(Suppl 1). Performed By: #### 2 4321-2, 40784-6, 65564-6, 87551-2, 6-3 ####[facility]ORATORYCLIA [id number] [place] [address] [place] Potassium [Moles/Vol] 4.2 mmol/L Normal 3.7-5.1 [facility] Comment on above: Order Comment: Speci men Type: BLOOD SPECIMENOrdering Facility: [facility] Address: [address] [place] [address] Performed By: #### 2 4321-2, 75116-2, 25325-0, 34396-0, 3015-3 ####[facility]PITALCLIA [id number] [place] [address] [place] Sodium [Moles/Vol] 139 mmol/L Normal 136-144 [facility] Comment on above: Order Comment: Speci men Type: BLOOD SPECIMENOrdering Facility: [facility] Address: [address] [place] [address] Performed By: #### 2 4321-2, 71719-2, 26147-2, 94591-6, 6-3 ####[facility]ORATORYCLIA [id number] [place] [id number] [place] Urea nitrogen [Mass/Vol] 51 mg/dL High 7-21 [facility] Comment on above: Order Comment: Speci men Type: BLOOD SPECIMENOrdering Facility: [facility] Address: [address] [place] [address] Performed By: #### 2 4321-2, 22100-7, 06665-0, 65508-8, 6-3 ####[facility]ORATORYCLIA [id number] [address] [place] CASE MGT INIT ASSESon 2021 CASE MGT INIT ASSES Normal [facility] CBC W Auto Differential pane l (Bld)on 10-16-2022 Basophils (Bld) [#/Vol] 0.00 10*3/uL Normal <0.11 [facility] Comment on above: Order Comment: Speci men Type: BLOOD SPECIMENOrdering Facility: [facility] Address: [address] [place] [address] Performed By: #### 5 7021-8 ####[facility]ORATORYCLIA [id number] [address] Basophils/100 WBC (Bld) 0.0 % Normal A [facility] Comment on above: Order Comment: Speci men Type: BLOOD SPECIMENOrdering Facility: [facility] Address: [address] [place] [address] Performed By: #### 5 7021-8 ####[facility]ORATORYCLIA [id number] [address] Differential cell count method Nom (Bld) Manual Normal [facility] Comment on above: Order Comment: Speci men Type: BLOOD SPECIMENOrdering Facility: [facility] Address: [address] [place] [address] Performed By: #### 5 7021-8 ####[facility]ORATORYCLIA [id number] [address] Eosinophils (Bld) [#/Vol] 0.00 10*3/uL Normal <0.46 [facility] Comment on above: Order Comment: Speci men Type: BLOOD SPECIMENOrdering Facility: [facility] Address: [address] [place] [address] Performed By: #### 5 7021-8 ####[facility]ORATORYCLIA [id number] [address] Eosinophils/100 WBC (Bld) 0.0 % Normal [facility] Comment on above: Order Comment: Speci men Type: BLOOD SPECIMENOrdering Facility: [facility] Address: [address] [place] [address] Performed By: #### 5 7021-8 ####[facility] LABORATORYCLIA [id number] [address] [place] Erythrocyte distribution width (RBC) [Ratio] 14.4 % Normal 11.5-15.0 [facility] Comment on above: Order Comment: Speci men Type: BLOOD SPECIMENOrdering Facility: [facility] Address: [address] [place] [address] Performed By: #### 5 7021-8 ####[facility]ORATORYCLIA [id number] [address] [place] Hematocrit (Bld) [Volume fraction] 32.7 % Low 36.0-46.0 [facility] Comment on above: Order Comment: Speci men Type: BLOOD SPECIMENOrdering Facility: [facility] Address: [address] [place] [address] Performed By: #### 5 7021-8 ####[facility]ORATORYCLIA [id number] [address] [place] Hemoglobin (Bld) [Mass/Vol] 10.1 g/dL Low 11.5-15.5 [facility] Comment on above: Order Comment: Speci men Type: BLOOD SPECIMENOrdering Facility: [facility] Address: [address] [place] [address] Performed By: #### 5 7021-8 ####[facility]ORATORYCLIA [id number] [place] [address] [place] Lymphocytes (Bld) [#/Vol] 1.04 10*3/uL Normal 1.00-4.00 [facility] Comment on above: Order Comment: Speci men Type: BLOOD SPECIMENOrdering Facility: [facility] Address: [address] [place] [address] Performed By: #### 5 7021-8 ####[facility]ORATORYCLIA [id number] [address] Lymphocytes/100 WBC (Bld) 9.0 % Normal [facility] Comment on above: Order Comment: Speci men Type: BLOOD SPECIMENOrdering Facility: [facility] Address: [address] [place] [address] Performed By: #### 5 7021-8 ####[facility]ORATORYCLIA [id number] [address] MCH (RBC) [Entitic mass] 30.1 pg Normal 26.0-34.0 [facility] Comment on above: Order Comment: Speci men Type: BLOOD SPECIMENOrdering Facility: [facility] Address: [address] [place] [address] Performed By: #### 5 7021-8 ####[facility] LABORATORYCLIA [id number] [address] OF [facility] MCHC (RBC) [Mass/Vol] 30.9 g/dL Normal 30.5-36.0 [facility] Comment on above: Order Comment: Speci men Type: BLOOD SPECIMENOrdering Facility: [facility] Address: [address] [place] [address] Performed By: #### 5 7021-8 ####[facility]ORATORYCLIA [id number] [address] MCV (RBC) [Entitic vol] 97.6 fL Normal 80.0-100.0 [facility] Comment on above: Order Comment: Speci men Type: BLOOD SPECIMENOrdering Facility: [facility] Address: [address] [place] [address] Performed By: #### 5 7021-8 ####[facility]ORATORYCLIA [id number] [address] Metamyelocytes/100 WBC (Bld) 4.0 % Normal [facility] Comment on above: Order Comment: Speci men Type: BLOOD SPECIMENOrdering Facility: [facility] Address: [address] [place], [place] [id number] Performed By: #### 5 7021-8 ####[facility]ORATORYCLIA [id number] [address] [place] Monocytes (Bld) [#/Vol] 0.81 10*3/uL Normal <0.87 [facility] Comment on above: Order Comment: Speci men Type: BLOOD SPECIMENOrdering Facility: [facility] Address: [address] [place] [address] Performed By: #### 5 7021-8 ####[facility]ORATORYCLIA [id number] [address] Monocytes/100 WBC (Bld) 7.0 % Normal A [facility] Comment on above: Order Comment: Speci men Type: BLOOD SPECIMENOrdering Facility: [facility] Address: [address] [place] [address] Performed By: #### 5 7021-8 ####[facility]ORATORYCLIA [id number] [address] [place] MYELO% 1.0 % Normal [facility] Comment on above: Order Comment: Speci men Type: BLOOD SPECIMENOrdering Facility: [facility] Address: [address] [place] [address] Performed By: #### 5 7021-8 ####[facility]ORATORYCLIA [id number] [address] [place] Neutrophils (Bld) [#/Vol] 9.10 10*3/uL High 1.45-7.50 [facility] Comment on above: Order Comment: Speci men Type: BLOOD SPECIMENOrdering Facility: [facility] Address: [address] [place] [address] Performed By: #### 5 7021-8 ####[facility]ORATORYCLIA [id number] [address] [place] Neutrophils/100 WBC (Bld) 79.0 % Normal [facility] Comment on above: Order Comment: Speci men Type: BLOOD SPECIMENOrdering Facility: [facility] Address: [address] [address] Performed By: #### 5 7021-8 ####[facility]ORATORYCLIA [id number] [address] Nucleated RBC (Bld) [#/Vol] 10*3/uL Normal <0.01 [facility] Comment on above: Order Comment: Speci men Type: BLOOD SPECIMENOrdering Facility: [facility] Address: [address] [place] [address] Result Comment: This result was previously suppressed from the chart. Performed By: #### 5 7021-8 ####[facility]ORATORYCLIA [id number] [address] Nucleated RBC/100 WBC (Bld) [Ratio] 0.0 /100 WBC Normal [facility] Comment on above: Order Comment: Speci men Type: BLOOD SPECIMENOrdering Facility: [facility] Address: [address] [place] [address] Performed By: #### 5 7021-8 ####[facility]ORATORYCLIA [id number] [address] Platelet mean volume (Bld) [Entitic vol] 8.6 fL Low 9.0-12.7 [facility] Comment on above: Order Comment: Speci men Type: BLOOD SPECIMENOrdering Facility: [facility] Address: [address] [place] [address] Performed By: #### 5 7021-8 ####[facility]ORATORYCLIA [id number] [address] [place] Platelets (Bld) [#/Vol] 408 10*3/uL High 150-400 [facility] Comment on above: Order Comment: Speci men Type: BLOOD SPECIMENOrdering Facility: [facility] Address: [address] [place] [address] Performed By: #### 5 7021-8 ####[facility]ORATORYCLIA [id number] [address] OF [place] Platelets Estimate (Bld) [#/Vol] Adequate Normal [facility] Comment on above: Order Comment: Speci men Type: BLOOD SPECIMENOrdering Facility: [facility] Address: [address] [place] [address] Performed By: #### 5 7021-8 ####[facility]ORATORYCLIA [id number] [address] Polychromasia LM Ql (Bld) Slight Normal [facility] Comment on above: Order Comment: Speci men Type: BLOOD SPECIMENOrdering Facility: [facility] Address: [address] [place] [address] Performed By: #### 5 7021-8 ####[facility]ORATORYCLIA [id number] [address] RBC (Bld) [#/Vol] 3.35 10*6/uL Low 3.90-5.20 [facility] Comment on above: Order Comment: Speci men Type: BLOOD SPECIMENOrdering Facility: [facility] Address: [address] [address] Performed By: #### 5 7021-8 ####[facility]ORATORYCLIA [id number] [address] RED CELL MORPH Reviewed: see result s of individual morphologies Normal [facility] Comment on above: Order Comment: Speci men Type: BLOOD SPECIMENOrdering Facility: [facility] Address: [address] [place] [address] Performed By: #### 5 7021-8 ####[facility]ORATORYCLIA [id number] [address] WBC (Bld) [#/Vol] 11.52 10*3/uL High 3.70-11.00 [facility] Comment on above: Order Comment: Speci men Type: BLOOD SPECIMENOrdering Facility: [facility] Address: [address] [place] [address] Performed By: #### 5 7021-8 ####[facility]ORATORYCLIA [id number] [address] [place] CONSULTon 10-16-2022 CONSULT Normal [facility] CONSULT Normal [facility] CONSULT PROGon 10-16-2022 CONSULT PROG Normal [facility] ECG COMPLETEon 10-16-2022 ECG COMPLETE Normal [facility] ED PROV NOTEon 10-16-2022 ED PROV NOTE Normal [facility] ED PROV NOTE Normal [facility] HIGH SENSITIVITY TROPONIN To n 10-16-2022 HIGH SENSITIVITY MARIE 103 ng/L High <12 [facility] Comment on above: Order Comment: Speci bozena Type: BLOOD SPECIMENOrdering Facility: [facility] Address: [address] [place] [address] Result Comment: When assessing risk for acute [...] day MACE. Performed By: #### H STNT ####[facility] LABORATORYCLIA [id number] [address] HIGH SENSITIVITY MARIE 112 ng/L High <12 [facility] Comment on above: Order Comment: Scott seals Type: BLOOD SPECIMENOrdering Facility: [facility] Address: [address] [place] [address] Result Comment: When assessing risk for acute [...] day MACE. Performed By: #### H STNT ####[facility]ORATORYCLIA [id number] [address] [place] HISTORY PHYSICALon HISTORY PHYSICAL Normal [facility] Magnesium SerPl-mCncon 10-16 Magnesium [Mass/Vol] 1.9 mg/dL Normal 1.7-2.3 [facility] Comment on above: Order Comment: Scott seals Type: BLOOD SPECIMENOrdering Facility: [facility] Address: [address] [place] [address] Performed By: #### 2 4321-2, 02693-8, 03376-4, 30722-7, 3016-3 ####[facility]ORATORYCLIA [id number] [address] [facility] [facility]proBNP [facility] Natriuretic peptide.B prohormone N-Terminal [Mass/Vol] 503 pg/mL High <125 [facility] Comment on above: Order Comment: Scott seals Type: BLOOD SPECIMENOrdering Facility: [facility] Address: [address] [place] [address] Performed By: #### 2 4321-2, 25961-4, 44499-2, 55169-5, 3016-3 ####[facility] LABORATORYCLIA [id number] [address] STATES OF [facility] PT EDon 10-16-2022 PT ED Normal [facility] PT panel Coag (PPP)on 2021 INR Coag (PPP) [Relative time] 1.0 {INR} Normal 0.9-1.3 [facility] Comment on above: Order Comment: Scott seals Type: BLOOD SPECIMENOrdering Facility: [facility] Address: [address] [place] [address] Result Comment: Fatmata min K Antagonist (VKA) Therapeutic Range: INR 2 to 3 (Target INR of 2.5)Note: For patients treated with VKA drugs, such as warfarin, the [employer] 2012 Guideline recommends [...] al. Chest 2012, 141:7S-47SNishimelroy RA, et al. [facility] 2017, 70: 252-289 Performed By: #### 3 4528-0, 35198-5 ####[facility]ITALCLIA [id number] [place] [address] [place] PT Coag (PPP) [Time] 10.4 s Normal 9.7-13.0 [facility] Comment on above: Order Comment: Speci men Type: BLOOD SPECIMENOrdering Facility: [facility] Address: [address] [place] [address] Performed By: #### 3 4528-0, 90457-8 ####[facility] [id number] [address] [facility]onin [facility] 12-17-2021 Procalcitonin [Mass/Vol] 0.09 ng/mL High <0.09 [facility] Comment on above: Order Comment: Scott seals Type: BLOOD SPECIMENOrdering Facility: [facility] Address: [address] [place] [address] Result Comment: For a guided interpretation of test results, please visit the Change in Procalcitonin Calculator, [email or web address]. Performed By: #### 2 4321-2, 22356-9, 62845-2, 16297-9, 3016-3 ####[facility]ORATORYCLIA [id number] [address] OF [place] SARS-CoV-2 RNA Resp Ql IGGY+p robeon 10-16-2022 SARS-CoV-2 (COVID-19) RNA IGGY+probe Ql (Resp) COVID 19 RESULT: SARS-CoV-2 (Agent of COVID-19) Not Detected by RT-PCR or equivalent method. This test has been authorized by FDA under an Emergency Use Authorization (EUA). Normal [facility] Comment on above: Performed By: #### 9 4500-6 ####[facility]ORATORYCLIA [id number] [address] OF [facility] TSH SerPl-aCncon 10-16-2022 TSH Qn 4.350 m[IU]/L High 0.270-4.200 [facility] Comment on above: Order Comment: Speci men Type: BLOOD SPECIMENOrdering Facility: [facility] Address: [address] [place] [address] Performed By: #### 2 4321-2, 20106-1, 24774-1, 20222-7, 3016-3 ####[facility] LABORATORYCLIA [id number] [address] [place] US DVT LOWER BILon US DVT LOWER CHERISE Normal [facility] Urinalysis complete panel (U )on 10-16-2022 Bacteria LM.HPF (Urine sed) [#/Area] Few Abnormal None Seen [facility] Comment on above: Order Comment: Speci men Type: URINE SPECIMENOrdering Facility: [facility] Address: [address] [place] [address] Performed By: #### 2 4356-8 ####[facility] LABORATORYCLIA [id number] [address] STATES [facility] Bilirubin Ql (U) Negative Normal Negative [facility] Comment on above: Order Comment: Speci men Type: URINE SPECIMENOrdering Facility: [facility] Address: [address] [place] [address] Performed By: #### 2 4356-8 ####[facility] LABORATORYCLIA [id number] [address] Clarity (Unsp spec) Dense Turbid Abnormal Clear [facility] Comment on above: Order Comment: Speci men Type: URINE SPECIMENOrdering Facility: [facility] Address: [address] [address] Performed By: #### 2 4356-8 ####[facility] LABORATORYCLIA [id number] [address] STATES OF [facility] Color (U) Light [place] Abnormal yellow [facility] Comment on above: Order Comment: Speci men Type: URINE SPECIMENOrdering Facility: [facility] Address: [address] [place] [address] Performed By: #### 2 4356-8 ####[facility]ORATORYCLIA [id number] [place] [address] [place] Epithelial cells LM.HPF (Urine sed) [#/Area] Few Normal [facility] Comment on above: Order Comment: Speci men Type: URINE SPECIMENOrdering Facility: [facility] Address: [address] [place] [address] Performed By: #### 2 4356-8 ####[facility]ATORYCLIA [id number] [place] [address] [place] Glucose Test strip (U) [Mass/Vol] Negative Normal Trace, Negative [facility] Comment on above: Order Comment: Speci men Type: URINE SPECIMENOrdering Facility: [facility] Address: [address] [place] [address] Performed By: #### 2 4356-8 ####[facility]ORATORYCLIA [id number] [place] [address] [place] Hemoglobin Ql (U) 3+ Abnormal Negative, Trace [facility] Comment on above: Order Comment: Speci men Type: URINE SPECIMENOrdering Facility: [facility] Address: [address] [place] [address] Performed By: #### 2 4356-8 ####[facility]ORATORYCLIA [id number] [address] [place] Ketones Ql (U) Negative Normal Negative, Trace [facility] Comment on above: Order Comment: Speci men Type: URINE SPECIMENOrdering Facility: [facility] Address: [address] [place] [address] Performed By: #### 2 4356-8 ####[facility]ORATORYCLIA [id number] [address] Leukocyte esterase Test strip Ql (U) 500 Ha/mL Abnormal Negative, 25 Ha/mL [facility] Comment on above: Order Comment: Speci men Type: URINE SPECIMENOrdering Facility: [facility] Address: [address] [place] [address] Performed By: #### 2 4356-8 ####[facility]ATORYCLIA [id number] [address] Nitrite Ql (U) Negative Normal Negative [facility] Comment on above: Order Comment: Speci men Type: URINE SPECIMENOrdering Facility: [facility] Address: [address] [place] [address] Performed By: #### 2 4356-8 ####[facility]ORATORYCLIA [id number] [address] pH (U) 7.0 [pH] Normal 5.0-8.0 [facility] Comment on above: Order Comment: Speci men Type: URINE SPECIMENOrdering Facility: [facility] Address: [address] [place] [address] Performed By: #### 2 4356-8 ####[facility]ORATORYCLIA [id number] [address] Protein (U) [Mass/Vol] 1+ Abnormal Trace , Negative [facility] Comment on above: Order Comment: Speci men Type: URINE SPECIMENOrdering Facility: [facility] Address: [address] [place] [address] Performed By: #### 2 4356-8 ####[facility]ORATORYCLIA [id number] [address] RBC LM.HPF (Urine sed) [#/Area] /[HPF] Abnormal 0-3 /HPF [facility] Comment on above: Order Comment: Speci men Type: URINE SPECIMENOrdering Facility: [facility] Address: [address] [place] [address] Performed By: #### 2 4356-8 ####[facility]ITALCLIA [id number] [address] Specific gravity (U) [Rel density] 1.010 Normal 1.005-1.030 [facility] Comment on above: Order Comment: Speci men Type: URINE SPECIMENOrdering Facility: [facility] Address: [address] [place] [address] Performed By: #### 2 4356-8 ####[facility]ORATORYCLIA [id number] [address] Urobilinogen Ql (U) Normal Normal Negative [facility] Comment on above: Order Comment: Speci men Type: URINE SPECIMENOrdering Facility: [facility] Address: [address] [place] [address] Performed By: #### 2 4356-8 ####[facility]ORATORYCLIA [id number] [address] WBC LM.HPF (Urine sed) [#/Area] /[HPF] Abnormal 0-5 /HPF [facility] Comment on above: Order Comment: Speci men Type: URINE SPECIMENOrdering Facility: [facility] Address: [address] [place] [address] Performed By: #### 2 4356-8 ####[facility]ORATORYCLIA [id number] [address] Yeast.budding LM.HPF (Urine sed) [#/Area] Moderate Abnormal None Seen [facility] Comment on above: Order Comment: Speci men Type: URINE SPECIMENOrdering Facility: [facility] Address: [address] [place] [address] Performed By: #### 2 4356-8 ####[facility]ORATORYCLIA [id number] [address] Urinalysis complete pnl Uron 10-16-2022 Urinalysis complete panel (U) Abnormal [facility] Comment on above: Order Comment: Speci men Type: URINE SPECIMENOrdering Facility: [facility] Address: [address] [place] [address], [place] [address] Performed By: #### 2 4356-8 ####[facility]ORATORYCLIA [id number] [address] [place] XR CHEST 1V FRONTALon 2021 XR CHEST 1V FRONTAL Normal [facility] aPTT PPPon 10-16-2022 aPTT Coag (PPP) [Time] 24.5 s Normal 23.0-32.4 [facility] Comment on above: Order Comment: Speci men Type: BLOOD SPECIMENOrdering Facility: [facility] Address: [address] [place] [address] Performed By: #### 3 4528-0, 56979-8 ####[facility]ORATORYCLIA [id number] [address] ED NOTEon 10-15-2022 ED NOTE Normal [facility] CNPNon 10-03-2022 CNPN Normal [facility] CNPTOUTREACHon 09-25-2022 CNPTOUTREACH Normal [facility] CNPTOUTREACHon 09-15-2022 CNPTOUTREACH Normal [facility] CNPNon 09-11-2022 CNPN Normal [facility] CNPTOUTREACHon 09-08-2022 CNPTOUTREACH Normal [facility] CNPTOUTREACHon 09-05-2022 CNPTOUTREACH Normal [facility] CNPTOUTREACHon 09-01-2022 CNPTOUTREACH Normal [facility] CNNURSEon 08-30-2022 CNNURSE Normal [facility] CNPNon 08-30-2022 CNPN Normal [facility] CNPNon 08-29-2022 CNPN Normal [facility] CNPNon 08-28-2022 CNPN Normal [facility] CNPTOUTREACHon 08-28-2022 CNPTOUTREACH Normal [facility] Basic metabolic 2000 panelon 08-27-2022 Anion gap [Moles/Vol] 10 mmol/L Normal 07-16 [facility] Comment on above: Order Comment: Speci men Type: BLOOD SPECIMENOrdering Facility: [facility] Address: [address] [place] [address] Performed By: #### 2 4321-2 ####[facility]ORATORYCLIA [id number] [place] [address] [place] Calcium [Mass/Vol] 8.9 mg/dL Normal 8.5-10.2 [facility] Comment on above: Order Comment: Speci men Type: BLOOD SPECIMENOrdering Facility: [facility] Address: [address] [place] [address] Performed By: #### 2 4321-2 ####[facility] LABORATORYCLIA [id number] [address] [place] Chloride [Moles/Vol] 92 mmol/L Low 97-105 [facility] Comment on above: Order Comment: Speci men Type: BLOOD SPECIMENOrdering Facility: [facility] Address: [address] [place] [address] Performed By: #### 2 4321-2 ####[facility]ORATORYCLIA [id number] [address] [place] CO2 [Moles/Vol] 31 mmol/L High 22-30 [facility] Comment on above: Order Comment: Speci men Type: BLOOD SPECIMENOrdering Facility: [facility] Address: [address] [place] [address] Performed By: #### 2 4321-2 ####[facility]ORATORYCLIA [id number] [place] [address] [place] Creatinine [Mass/Vol] 1.50 mg/dL High 0.58-0.96 [facility] Comment on above: Order Comment: Speci men Type: BLOOD SPECIMENOrdering Facility: [facility] Address: [address] [place] [address] Performed By: #### 2 4321-2 ####[facility]ORATORYCLIA [id number] [address] [place] ESTIMATED GLOMERULAR FILTRATION RATE 39 mL/min/1.73m??? Low >=60 [facility] Comment on above: Order Comment: Scott seals Type: BLOOD SPECIMENOrdering Facility: [facility] Address: [address] [address] Result Comment: Petra mated Glomerular Filtration Rate [...] actual GFR. Performed By: #### 2 4321-2 ####[facility]ATORYCLIA [id number] [place] [address] [place] Glucose [Mass/Vol] 309 mg/dL High 74-99 [facility] Comment on above: Order Comment: Scott seals Type: BLOOD SPECIMENOrdering Facility: [facility] Address: [address] [place] [place] [address] Result Comment: The [place] [employer] (ADA) provides guidance for cutoff [...] Standards of Medical Care in Diabetes 2016, [place] [employer]. Diabetes Care. 2016.39(Suppl 1). Performed By: #### 2 4321-2 ####[facility]ORATORYCLIA [id number] [place] [address] [place] Potassium [Moles/Vol] 4.3 mmol/L Normal 3.7-5.1 [facility] Comment on above: Order Comment: Scott seals Type: BLOOD SPECIMENOrdering Facility: [facility] Address: [address] [address] Performed By: #### 2 4321-2 ####[facility]ORATORYCLIA [id number] [place] [address] [place] Sodium [Moles/Vol] 133 mmol/L Low 136-144 [facility] Comment on above: Order Comment: Speci men Type: BLOOD SPECIMENOrdering Facility: [facility] Address: [address] [place] [address] Performed By: #### 2 4321-2 ####[facility]ORATORYCLIA [id number] [place] [address] [place] Urea nitrogen [Mass/Vol] 53 mg/dL High 7-21 [facility] Comment on above: Order Comment: Speci men Type: BLOOD SPECIMENOrdering Facility: [facility] Address: [address] [place] [address] Performed By: #### 2 4321-2 ####[facility]ORATORYCLIA [id number] [place] [address] [place] CASE MANAGEMon 08-27-2022 CASE MANAGEM Normal [facility] CNDSon 08-27-2022 CNDS Normal [facility] Bacteria Ur Culton Bacteria identified Cx Nom (U) Abnormal [facility] Comment on above: Performed By: #### 6 30-4 ####[facility]ORATORYCLIA [id number] [place] [address] [place] Basic metabolic 2000 panelon 08-26-2022 Anion gap [Moles/Vol] 10 mmol/L Normal 9-18 [facility] Comment on above: Order Comment: Speci men Type: BLOOD SPECIMENOrdering Facility: [facility] Address: [address] [place] [address] Performed By: #### 2 4321-2 ####[facility]ATORYCLIA [id number] [place] [address] [place] Calcium [Mass/Vol] 9.1 mg/dL Normal 8.5-10.2 [facility] Comment on above: Order Comment: Speci men Type: BLOOD SPECIMENOrdering Facility: [facility] Address: [address] [address] Performed By: #### 2 4321-2 ####[facility]ORATORYCLIA [id number] [address] [place] Chloride [Moles/Vol] 90 mmol/L Low 97-105 [facility] Comment on above: Order Comment: Speci men Type: BLOOD SPECIMENOrdering Facility: [facility] Address: [address] [place] [address] Performed By: #### 2 4321-2 ####[facility]ORATORYCLIA [id number] [address] [place] CO2 [Moles/Vol] 31 mmol/L High 22-30 [facility] Comment on above: Order Comment: Speci men Type: BLOOD SPECIMENOrdering Facility: [facility] Address: [address] [place] [address] Performed By: #### 2 4321-2 ####[facility]ORATORYCLIA [id number] [address] STATES OF [facility] Creatinine [Mass/Vol] 1.53 mg/dL High 0.58-0.96 [facility] Comment on above: Order Comment: Speci men Type: BLOOD SPECIMENOrdering Facility: [facility] Address: [address] [place] [address] Performed By: #### 2 4321-2 ####[facility]ORATORYCLIA [id number] [address] ESTIMATED GLOMERULAR FILTRATION RATE 38 mL/min/1.73m??? Low >=60 [facility] Comment on above: Order Comment: Speci men Type: BLOOD SPECIMENOrdering Facility: [facility] Address: [address] [place] [address] Result Comment: Petra mated Glomerular Filtration Rate [...] actual GFR. Performed By: #### 2 4321-2 ####[facility]ATORYCLIA [id number] [place] [address] [place] Glucose [Mass/Vol] 337 mg/dL High 74-99 [facility] Comment on above: Order Comment: Scott seals Type: BLOOD SPECIMENOrdering Facility: [facility] Address: [address] [place] [address] Result Comment: The [place] Diabetes [employer] (ADA) provides guidance for cutoff [...] Standards of Medical Care in Diabetes 2016, [place] [employer]. Diabetes Care. 2016.39(Suppl 1). Performed By: #### 2 4321-2 ####[facility]ATORYCLIA [id number] [place] [address] [place] Potassium [Moles/Vol] 4.7 mmol/L Normal 3.7-5.1 [facility] Comment on above: Order Comment: Scott seals Type: BLOOD SPECIMENOrdering Facility: [facility] Address: [address] [address] Performed By: #### 2 4321-2 ####[facility]ORATORYCLIA [id number] [place] [address] [place] Sodium [Moles/Vol] 131 mmol/L Low 136-144 [facility] Comment on above: Order Comment: Scott seals Type: BLOOD SPECIMENOrdering Facility: [facility] Address: [address] [address] Performed By: #### 2 4321-2 ####[facility]ATORYCLIA [id number] [place] [address] [place] Urea nitrogen [Mass/Vol] 39 mg/dL High 7-21 [facility] Comment on above: Order Comment: Speci men Type: BLOOD SPECIMENOrdering Facility: [facility] Address: [address] [place] [address] Performed By: #### 2 4321-2 ####[facility]ORATORYCLIA [id number] [place] [address] [place] CNPNon 08-26-2022 CNPN Normal [facility] CONSULT PROGon 08-26-2022 CONSULT PROG Normal [facility] NURSING PROGon 08-26-2022 NURSING PROG Normal [facility] Urinalysis complete panel (U )on 08-26-2022 Bilirubin Ql (U) Negative Normal Negative [facility] Comment on above: Order Comment: Speci men Type: URINE SPECIMENOrdering Facility: [facility] Address: [address] [place] [address] Performed By: #### 2 4356-8 ####[facility]ORATORYCLIA [id number] [place] [address] [place] Clarity (Unsp spec) Clear Normal Clear [facility] Comment on above: Order Comment: Speci men Type: URINE SPECIMENOrdering Facility: [facility] Address: [address] [place] [address] Performed By: #### 2 4356-8 ####[facility]ORATORYCLIA [id number] [address] [place] Color (U) Yellow Normal yellow [facility] Comment on above: Order Comment: Speci men Type: URINE SPECIMENOrdering Facility: [facility] Address: [address] [place] [address] Performed By: #### 2 4356-8 ####[facility]ORATORYCLIA [id number] [place] [address] [place] Epithelial cells LM.HPF (Urine sed) [#/Area] Few Normal [facility] Comment on above: Order Comment: Speci men Type: URINE SPECIMENOrdering Facility: [facility] Address: [address] [place] [address] Performed By: #### 2 4356-8 ####[facility]ATORYCLIA [id number] [address] Glucose Test strip (U) [Mass/Vol] 4+ Abnormal Negative [facility] Comment on above: Order Comment: Speci men Type: URINE SPECIMENOrdering Facility: [facility] Address: [address] [place] [address] Performed By: #### 2 4356-8 ####[facility]ATORYCLIA [id number] [address] [place] Hemoglobin Ql (U) 2+ Abnormal Negative [facility] Comment on above: Order Comment: Speci men Type: URINE SPECIMENOrdering Facility: [facility] Address: [address] [place] [address] Performed By: #### 2 4356-8 ####[facility]ATORYCLIA [id number] [address] [place] Ketones Ql (U) Negative Normal Negative [facility] Comment on above: Order Comment: Speci men Type: URINE SPECIMENOrdering Facility: [facility] Address: [address] [place] [address] Performed By: #### 2 4356-8 ####[facility]ATORYCLIA [id number] [address] Leukocyte esterase Test strip Ql (U) 500 Ha/mL Abnormal Negative [facility] Comment on above: Order Comment: Speci men Type: URINE SPECIMENOrdering Facility: [facility] Address: [address] [place] [address] Performed By: #### 2 4356-8 ####[facility]ATORYCLIA [id number] [place] [address] [place] Nitrite Ql (U) Negative Normal Negative [facility] Comment on above: Order Comment: Speci men Type: URINE SPECIMENOrdering Facility: [facility] Address: [address] [place] [address] Performed By: #### 2 4356-8 ####[facility]ATORYCLIA [id number] [address] pH (U) 6.5 [pH] Normal 5.0-8.0 [facility] Comment on above: Order Comment: Speci men Type: URINE SPECIMENOrdering Facility: [facility] Address: [address] [place] [address] Performed By: #### 2 4356-8 ####[facility]ORATORYCLIA [id number] [address] STATES [facility] Protein (U) [Mass/Vol] Trace Abnormal Negative [facility] Comment on above: Order Comment: Speci men Type: URINE SPECIMENOrdering Facility: [facility] Address: [address] [place] [address] Performed By: #### 2 4356-8 ####[facility]ORATORYCLIA [id number] [address] STATES [facility] RBC LM.HPF (Urine sed) [#/Area] 3-5 /HPF Abnormal 0-3 /HPF [facility] Comment on above: Order Comment: Speci men Type: URINE SPECIMENOrdering Facility: [facility] Address: [address] [place] [address] Performed By: #### 2 4356-8 ####[facility]ORATORYCLIA [id number] [address] Specific gravity (U) [Rel density] 1.019 Normal 1.005-1.030 [facility] Comment on above: Order Comment: Speci men Type: URINE SPECIMENOrdering Facility: [facility] Address: [address] [place] [address] Performed By: #### 2 4356-8 ####[facility]ORATORYCLIA [id number] [address] Urobilinogen Ql (U) Normal Normal Negative [facility] Comment on above: Order Comment: Speci men Type: URINE SPECIMENOrdering Facility: [facility] Address: [address] [address] Performed By: #### 2 4356-8 ####[facility]ORATORYCLIA [id number] [place] [address] [place] WBC LM.HPF (Urine sed) [#/Area] 6-10 /HPF Abnormal 0-5 /HPF [facility] Comment on above: Order Comment: Speci men Type: URINE SPECIMENOrdering Facility: [facility] Address: [address] [address] Performed By: #### 2 4356-8 ####[facility]ORATORYCLIA [id number] [place] [address] [place] Basic metabolic 2000 panelon 08-25-2022 Anion gap [Moles/Vol] 10 mmol/L Normal 9-18 [facility] Comment on above: Order Comment: Speci men Type: BLOOD SPECIMENOrdering Facility: [facility] Address: [address] [address] Performed By: #### 2 4321-2 ####[facility] LABORATORYCLIA [id number] [place] [address] [place] Calcium [Mass/Vol] 8.7 mg/dL Normal 8.5-10.2 [facility] Comment on above: Order Comment: Speci men Type: BLOOD SPECIMENOrdering Facility: [facility] Address: [address] [address] Performed By: #### 2 4321-2 ####[facility] LABORATORYCLIA [id number] [place] [address] [place] Chloride [Moles/Vol] 98 mmol/L Normal 97-105 [facility] Comment on above: Order Comment: Speci men Type: BLOOD SPECIMENOrdering Facility: [facility] Address: [address] [address] Performed By: #### 2 4321-2 ####[facility] LABORATORYCLIA [id number] [address] [place] CO2 [Moles/Vol] 31 mmol/L High 22-30 [facility] Comment on above: Order Comment: Speci men Type: BLOOD SPECIMENOrdering Facility: [facility] Address: [address] [place] [address] Performed By: #### 2 4321-2 ####[facility] LABORATORYCLIA [id number] [address] [place] Creatinine [Mass/Vol] 1.76 mg/dL High 0.58-0.96 [facility] Comment on above: Order Comment: Speci men Type: BLOOD SPECIMENOrdering Facility: [facility] Address: [address] [place] [address] Performed By: #### 2 4321-2 ####[facility] LABORATORYCLIA [id number] [address] ESTIMATED GLOMERULAR FILTRATION RATE 32 mL/min/1.73m??? Low >=60 [facility] Comment on above: Order Comment: Speci men Type: BLOOD SPECIMENOrdering Facility: [facility] Address: [address] [place] [address] Result Comment: Petra mated Glomerular Filtration Rate [...] actual GFR. Performed By: #### 2 4321-2 ####[facility] LABORATORYCLIA [id number] [address] [place] Glucose [Mass/Vol] 191 mg/dL High 74-99 [facility] Comment on above: Order Comment: Speci men Type: BLOOD SPECIMENOrdering Facility: [facility] Address: [address] [place] [address] Result Comment: The [place] [employer] Association (ADA) provides guidance for cutoff [...] Standards of Medical Care in Diabetes 2016, [place] [employer]. Diabetes Care. 2016.39(Suppl 1). Performed By: #### 2 4321-2 ####[facility] LABORATORYCLIA [id number] [address] [place] Potassium [Moles/Vol] 4.4 mmol/L Normal 3.7-5.1 [facility] Comment on above: Order Comment: Speci men Type: BLOOD SPECIMENOrdering Facility: [facility] Address: [address] [place] [address] Performed By: #### 2 1-2 ####[facility] LABORATORYCLIA [id number] [place] [address] [place] Sodium [Moles/Vol] 139 mmol/L Normal 136-144 [facility] Comment on above: Order Comment: Scott seals Type: BLOOD SPECIMENOrdering Facility: [facility] Address: [address] [place] [address] Performed By: #### 2 1-2 ####[facility] LABORATORYCLIA [id number] [address] [place] Urea nitrogen [Mass/Vol] 31 mg/dL High 7-21 [facility] Comment on above: Order Comment: Luhi bozena Type: BLOOD SPECIMENOrdering Facility: [facility] Address: [address] [place] [address] Performed By: #### 2 1-2 ####[facility] LABORATORYCLIA [id number] [address] [place] CASE MANAGEMon 08-25-2022 CASE MANAGEM Normal [facility] CASE MANAGEM Normal [facility] CBC W Auto Differential pane l (Bld)on 08-25-2022 Anisocytosis Ql (Bld) Present [facility] Comment on above: Order Comment: Speci men Type: BLOOD SPECIMENOrdering Facility: [facility] Address: [address] [place] [address] Performed By: #### 5 7021-8 ####[facility] LABORATORYCLIA [id number] [place] [address] [place] Basophils (Bld) [#/Vol] 0.00 10*3/uL Normal <0.11 [facility] Comment on above: Order Comment: Speci men Type: BLOOD SPECIMENOrdering Facility: [facility] Address: [address] [place] [address] Performed By: #### 5 7021-8 ####[facility] LABORATORYCLIA [id number] [place] [address] [place] Basophils/100 WBC (Bld) 0.0 % Normal A [facility] Comment on above: Order Comment: Speci men Type: BLOOD SPECIMENOrdering Facility: [facility] Address: [address] [place] [address] Performed By: #### 5 7021-8 ####[facility] LABORATORYCLIA [id number] [place] [address] [place] Differential cell count method Nom (Bld) Manual Normal [facility] Comment on above: Order Comment: Speci men Type: BLOOD SPECIMENOrdering Facility: [facility] Address: [address] [place] [address] Performed By: #### 5 7021-8 ####[facility] LABORATORYCLIA [id number] [place] [address] [place] Eosinophils (Bld) [#/Vol] 0.44 10*3/uL Normal <0.46 [facility] Comment on above: Order Comment: Speci men Type: BLOOD SPECIMENOrdering Facility: [facility] Address: [address] [place] [address] Performed By: #### 5 7021-8 ####[facility] LABORATORYCLIA [id number] [address] STATES [facility] Eosinophils/100 WBC (Bld) 6.0 % Normal [facility] Comment on above: Order Comment: Speci men Type: BLOOD SPECIMENOrdering Facility: [facility] Address: [address] [place] [address] Performed By: #### 5 7021-8 ####[facility] LABORATORYCLIA [id number] [address] [place] Erythrocyte distribution width (RBC) [Ratio] 14.6 % Normal 11.5-15.0 [facility] Comment on above: Order Comment: Speci men Type: BLOOD SPECIMENOrdering Facility: [facility] Address: [address] [place] [address] Performed By: #### 5 7021-8 ####[facility] LABORATORYCLIA [id number] [address] Hematocrit (Bld) [Volume fraction] 31.7 % Low 36.0-46.0 [facility] Comment on above: Order Comment: Speci men Type: BLOOD SPECIMENOrdering Facility: [facility] Address: [address] [place] [address] Performed By: #### 5 7021-8 ####[facility] LABORATORYCLIA [id number] [address] [place] Hemoglobin (Bld) [Mass/Vol] 9.7 g/dL Low 11.5-15.5 [facility] Comment on above: Order Comment: Speci men Type: BLOOD SPECIMENOrdering Facility: [facility] Address: [address] [place] [address] Performed By: #### 5 7021-8 ####[facility] LABORATORYCLIA [id number] [address] [place] Lymphocytes (Bld) [#/Vol] 1.89 10*3/uL Normal 1.00-4.00 [facility] Comment on above: Order Comment: Speci men Type: BLOOD SPECIMENOrdering Facility: [facility] Address: [address] [place] [address] Performed By: #### 5 7021-8 ####[facility] LABORATORYCLIA [id number] [address] Lymphocytes/100 WBC (Bld) 10.0 % Normal [facility] Comment on above: Order Comment: Speci men Type: BLOOD SPECIMENOrdering Facility: [facility] Address: [address] [place] [address] Performed By: #### 5 7021-8 ####[facility] LABORATORYCLIA [id number] [address] MCH (RBC) [Entitic mass] 29.3 pg Normal 26.0-34.0 [facility] Comment on above: Order Comment: Speci men Type: BLOOD SPECIMENOrdering Facility: [facility] Address: [address] [place] [address] Performed By: #### 5 7021-8 ####[facility] LABORATORYCLIA [id number] [address] MCHC (RBC) [Mass/Vol] 30.6 g/dL Normal 30.5-36.0 [facility] Comment on above: Order Comment: Speci men Type: BLOOD SPECIMENOrdering Facility: [facility] Address: [address] [place] [address] Performed By: #### 5 7021-8 ####[facility] LABORATORYCLIA [id number] [address] [place] MCV (RBC) [Entitic vol] 95.8 fL Normal 80.0-100.0 [facility] Comment on above: Order Comment: Speci men Type: BLOOD SPECIMENOrdering Facility: [facility] Address: [address] [place] [address] Performed By: #### 5 7021-8 ####[facility] LABORATORYCLIA [id number] [address] [place] Monocytes (Bld) [#/Vol] 0.44 10*3/uL Normal <0.87 [facility] Comment on above: Order Comment: Speci men Type: BLOOD SPECIMENOrdering Facility: [facility] Address: [address] [address] Performed By: #### 5 7021-8 ####[facility] LABORATORYCLIA [id number] [place] [address] [place] Monocytes/100 WBC (Bld) 6.0 % Normal A [facility] Comment on above: Order Comment: Speci men Type: BLOOD SPECIMENOrdering Facility: [facility] Address: [address] [place] [address] Performed By: #### 5 7021-8 ####[facility] LABORATORYCLIA [id number] [address] [place] Neutrophils (Bld) [#/Vol] 4.51 10*3/uL Normal 1.45-7.50 [facility] Comment on above: Order Comment: Speci men Type: BLOOD SPECIMENOrdering Facility: [facility] Address: [address] [place] [address] Performed By: #### 5 7021-8 ####[facility] LABORATORYCLIA [id number] [address] [place] Neutrophils/100 WBC (Bld) 62.0 % Normal [facility] Comment on above: Order Comment: Speci men Type: BLOOD SPECIMENOrdering Facility: [facility] Address: [address] [place] [address] Performed By: #### 5 7021-8 ####[facility] LABORATORYCLIA [id number] [place] [address] [place] Nucleated RBC (Bld) [#/Vol] 10*3/uL Normal <0.01 [facility] Comment on above: Order Comment: Speci men Type: BLOOD SPECIMENOrdering Facility: [facility] Address: [address] [place] [address] Performed By: #### 5 7021-8 ####[facility] LABORATORYCLIA [id number] [address] [place] Nucleated RBC/100 WBC (Bld) [Ratio] 0.0 /100 WBC Normal [facility] Comment on above: Order Comment: Speci men Type: BLOOD SPECIMENOrdering Facility: [facility] Address: [address] [place] [address] Performed By: #### 5 7021-8 ####[facility] LABORATORYCLIA [id number] [place] [address] [place] Ovalocytes LM Ql (Bld) Moderate Normal [facility] Comment on above: Order Comment: Speci men Type: BLOOD SPECIMENOrdering Facility: [facility] Address: [address] [place] [address] Performed By: #### 5 7021-8 ####[facility] LABORATORYCLIA [id number] [place] [address] [place] Platelet mean volume (Bld) [Entitic vol] 8.2 fL Low 9.0-12.7 [facility] Comment on above: Order Comment: Speci men Type: BLOOD SPECIMENOrdering Facility: [facility] Address: [address] [place] [address] Performed By: #### 5 7021-8 ####[facility] LABORATORYCLIA [id number] [address] [place] Platelets (Bld) [#/Vol] 292 10*3/uL Normal 150-400 [facility] Comment on above: Order Comment: Speci men Type: BLOOD SPECIMENOrdering Facility: [facility] Address: [address] [place] [address] Performed By: #### 5 7021-8 ####[facility] LABORATORYCLIA [id number] [address] [place] Platelets Estimate (Bld) [#/Vol] Adequate Normal [facility] Comment on above: Order Comment: Speci men Type: BLOOD SPECIMENOrdering Facility: [facility] Address: [address] [place] [address] Performed By: #### 5 7021-8 ####[facility] LABORATORYCLIA [id number] [address] Polychromasia LM Ql (Bld) Slight Normal [facility] Comment on above: Order Comment: Speci men Type: BLOOD SPECIMENOrdering Facility: [facility] Address: [address] [place] [address] Performed By: #### 5 7021-8 ####[facility] LABORATORYCLIA [id number] [address] RBC (Bld) [#/Vol] 3.31 10*6/uL Low 3.90-5.20 [facility] Comment on above: Order Comment: Speci men Type: BLOOD SPECIMENOrdering Facility: [facility] Address: [address] [place] [address] Performed By: #### 5 7021-8 ####[facility] LABORATORYCLIA [id number] [address] RED CELL MORPH Reviewed Normal [facility] Comment on above: Order Comment: Speci men Type: BLOOD SPECIMENOrdering Facility: [facility] Address: [address] [place] [address] Performed By: #### 5 7021-8 ####[facility]ORATORYCLIA [id number] [address] Variant lymphocytes/100 WBC (Bld) 16.0 % Normal [facility] Comment on above: Order Comment: Speci men Type: BLOOD SPECIMENOrdering Facility: [facility] Address: [address] [place] [address] Performed By: #### 5 7021-8 ####[facility] LABORATORYCLIA [id number] [address] WBC (Bld) [#/Vol] 7.27 10*3/uL Normal 3.70-11.00 [facility] Comment on above: Order Comment: Speci men Type: BLOOD SPECIMENOrdering Facility: [facility] Address: [address] [address] Performed By: #### 5 7021-8 ####[facility] LABORATORYCLIA [id number] [address] [place] CONSULTon 08-25-2022 CONSULT Normal [facility] CONSULT PROGon 08-25-2022 CONSULT PROG Normal [facility] SURGICAL PATHOLOGYon 022 CASE REPORT Normal [facility] Comment on above: Order Comment: Speci men Type: TISSUE SPECIMENOrdering Facility: [facility] Address: [address] [address] Result Comment: Surg ical Pathology Report Case: [id number] Provider: Zully Damian DO Collected: 08/25/2022 03:28 AMOrdering Location: [address] Received: 08/25/2022 01:15 PMPathologist: ARIEL Llanospecimens: A) - SKIN PUNCH EXCISION B) - SKIN DIF Performed By: #### S ####[facility] LABCLIA [id number] [address] LABORATORYCLIA [id number] [address] CLINICAL HISTORY bullous rash Normal [facility] Comment on above: Order Comment: Speci men Type: TISSUE SPECIMENOrdering Facility: [facility] Address: [address] [address] Performed By: #### S ####[facility] LABCLIA [id number] [address] LABORATORYCLIA [id number] [address] [place] DIAGNOSIS COMMENT Normal [facility] Comment on above: Order Comment: Speci men Type: TISSUE SPECIMENOrdering Facility: [facility] Address: [address] [address] Result Comment: A. H istologic sections demonstrate [...] been determined by the performing laboratory within [facility] [place] [facility]???s [facility] Pathology and Laboratory Medicine [place] (centrastate healthcare system, [facility], [facility] or [facility]) in a manner consistent with CLIA requirements. One or more of these tests have not been cleared or approved by the FDA. [facility] is regulated under CLIA as qualified to perform high-complexity testing. These tests are used for clinical purposes. They should not be regarded as investigational or for research. Positive and negative controls stain appropriately. Performed By: #### S ####[facility] LABCLIA [id number] [id number] [address] FINAL DIAGNOSIS Normal [facility] Comment on above: Order Comment: Speci men Type: TISSUE SPECIMENOrdering Facility: [facility] Address: [address] [place] [address] Result Comment: A. S kin, left upper arm, punch excision:-Full-thickness epidermal ulcer, see comment.B. Skin, left upper arm, punch biopsy (DIF):-Positive direct immunofluorescence, see comment.DINA/MOI 08/28/2022 Performed By: #### S ####[facility] LABCLIA [id number] [id number] FINAL PERFORMING LAB Normal [facility] Comment on above: Order Comment: Speci men Type: TISSUE SPECIMENOrdering Facility: [facility] Address: [address] [place] [address] Result Comment: Diag nostic interpretation performed at [facility] [place] [facility], [facility] [address] CLIA# [id number] Director: Jose Saleem M.D. Performed By: #### S ####[facility] LABCLIA [id number] [address] LABORATORYCLIA [id number] [address] GROSS DESCRIPTION [facility] Comment on above: Order Comment: Speci men Type: TISSUE SPECIMENOrdering Facility: [facility] Address: [address] [place] [address] Result Comment: A. S KIN PUNCH EXCISIONReceived [...] frozen for Direct Immunofluorescence.Gross examination performed at [facility] [place] [facility], [facility] [place], [place] [address]FTO 08/25/2022 6:11 PM Performed By: #### S ####[facility] LABCLIA [id number] [address] LABORATORYCLIA [id number] [address] [place] CASE REPORT Normal [facility] Comment on above: Order Comment: Speci men Type: TISSUE SPECIMENOrdering Facility: [facility] Address: [address] [place] [address] Result Comment: Surg ical Pathology Report Case: [id number] Provider: Zully Damian DO Collected: 08/25/2022 03:28 AMOrdering Location: [address] Received: 08/25/2022 01:15 PMPathologist: ARIEL Llanospecimens: A) - SKIN PUNCH EXCISION B) - SKIN DIF Performed By: #### S ####[facility] LABCLIA [id number] [address] LABORATORYCLIA [id number] [address] CLINICAL HISTORY bullous rash Normal [facility] Comment on above: Order Comment: Speci men Type: TISSUE SPECIMENOrdering Facility: [facility] Address: [address] [place] [address] Performed By: #### S ####[facility] LABCLIA [id number] [address] LABORATORYCLIA [id number] [place], [place] [address] [place] [address] DIAGNOSIS COMMENT Normal [facility] Comment on above: Order Comment: Speci men Type: TISSUE SPECIMENOrdering Facility: [facility] Address: [address] [place] [address] Result Comment: A. H istologic sections demonstrate [...] been determined by the performing laboratory within [facility] [place] [facility]???s [facility] Pathology and Laboratory Medicine [place] (centrastate healthcare system, [facility], [facility] or [facility]) in a manner consistent with CLIA requirements. One or more of these tests have not been cleared or approved by the FDA. [facility] is regulated under CLIA as qualified to perform high-complexity testing. These tests are used for clinical purposes. They should not be regarded as investigational or for research. Positive and negative controls stain appropriately. Performed By: #### S ####[facility] LABCLIA [id number] [address] LABORATORYCLIA [id number] [place] [address] FINAL DIAGNOSIS Normal [facility] Comment on above: Order Comment: Speci men Type: TISSUE SPECIMENOrdering Facility: [facility] Address: [address] [address] Result Comment: A. S kin, left upper arm, punch excision:-Full-thickness epidermal ulcer, see comment.B. Skin, left upper arm, punch biopsy (DIF):-Positive direct immunofluorescence, see comment.MP/MOI 08/28/2022 Performed By: #### S ####[facility] LABCLIA [id number] [address] LABORATORYCLIA [id number] [address] FINAL PERFORMING LAB Normal [facility] Comment on above: Order Comment: Speci men Type: TISSUE SPECIMENOrdering Facility: [facility] Address: [address] [address] Result Comment: Diag nostic interpretation performed at [facility] [place] [facility], [address] [address] CLIA# [id number] Director: Jose Saleem M.D. Performed By: #### S ####[facility] LABCLIA [id number] [address] [address] [facility] LABORATORYCLIA [id number] [address] OF [facility] GROSS DESCRIPTION Normal [facility] Comment on above: Order Comment: Speci men Type: TISSUE SPECIMENOrdering Facility: [facility] Address: [address] [phone] Result Comment: A. S KIN PUNCH EXCISIONReceived [...] frozen for Direct Immunofluorescence.Gross examination performed at [facility] [place] [facility], [address] [place] [id number] 08/25/2022 6:11 PM Performed By: #### S ####[facility] LABCLIA [id number] [address] OF [facility] LABORATORYCLIA [id number] [address] [place] Basic metabolic 2000 panelon 08-24-2022 Anion gap [Moles/Vol] 6 mmol/L Low 9-18 [facility] Comment on above: Order Comment: Speci men Type: BLOOD SPECIMENOrdering Facility: [facility] Address: [address] [id number] Performed By: #### 2 4321-2 ####[facility] LABORATORYIA [id number] [place] [address] [place] Calcium [Mass/Vol] 8.9 mg/dL Normal 8.5-10.2 [facility] Comment on above: Order Comment: Speci men Type: BLOOD SPECIMENOrdering Facility: [facility] Address: [address] [address] Performed By: #### 2 4321-2 ####[facility] LABORATORYCLIA [id number] [place] [address] [place] Chloride [Moles/Vol] 97 mmol/L Normal 97-105 [facility] Comment on above: Order Comment: Speci men Type: BLOOD SPECIMENOrdering Facility: [facility] Address: [address] [place] [address] Performed By: #### 2 4321-2 ####[facility] LABORATORYCLIA [id number] [place] [address] [place] CO2 [Moles/Vol] 32 mmol/L High 22-30 [facility] Comment on above: Order Comment: Speci men Type: BLOOD SPECIMENOrdering Facility: [facility] Address: [address] [place] [address] Performed By: #### 2 4321-2 ####[facility] LABORATORYCLIA [id number] [address] [place] Creatinine [Mass/Vol] 1.48 mg/dL High 0.58-0.96 [facility] Comment on above: Order Comment: Speci men Type: BLOOD SPECIMENOrdering Facility: [facility] Address: [address] [place] [address] Performed By: #### 2 4321-2 ####[facility] LABORATORYCLIA [id number] [address] [place] ESTIMATED GLOMERULAR FILTRATION RATE 39 mL/min/1.73m??? Low >=60 [facility] Comment on above: Order Comment: Speci men Type: BLOOD SPECIMENOrdering Facility: [facility] Address: [address] [place] [address] Result Comment: Petra mated Glomerular Filtration Rate [...] actual GFR. Performed By: #### 2 4321-2 ####[facility] LABORATORYCLIA [id number] [place] [address] [place] Glucose [Mass/Vol] 122 mg/dL High 74-99 [facility] Comment on above: Order Comment: Scott seals Type: BLOOD SPECIMENOrdering Facility: [facility] Address: [address] [place] [address] Result Comment: The [place] [employer] (ADA) provides guidance for cutoff [...] Standards of Medical Care in Diabetes 2016, [employer]. Diabetes Care. 2016.39(Suppl 1). Performed By: #### 2 4321-2 ####[facility] LABORATORYCLIA [id number] [place] [address] [place] Potassium [Moles/Vol] 4.3 mmol/L Normal 3.7-5.1 [facility] Comment on above: Order Comment: Scott seals Type: BLOOD SPECIMENOrdering Facility: [facility] Address: [address] [address] Performed By: #### 2 4321-2 ####[facility]ORATORYCLIA [id number] [place] [address] [place] Sodium [Moles/Vol] 135 mmol/L Low 136-144 [facility] Comment on above: Order Comment: Scott seals Type: BLOOD SPECIMENOrdering Facility: [facility] Address: [address] [address] Performed By: #### 2 4321-2 ####[facility]ORATORYCLIA [id number] [address] [place] Urea nitrogen [Mass/Vol] 27 mg/dL High 7-21 [facility] Comment on above: Order Comment: Speci men Type: BLOOD SPECIMENOrdering Facility: [facility] Address: [address] [place] [address] Performed By: #### 2 4321-2 ####[facility]ORATORYCLIA [id number] [address] STATES OF [facility] CONSULT PROGon 08-24-2022 CONSULT PROG Normal [facility] Chloride Unsp time (U) [Mole s/Vol]on 08-24-2022 Chloride (U) [Moles/Vol] 120 mmol/L Normal 16-250 [facility] Comment on above: Order Comment: Speci men Type: URINE SPECIMENOrdering Facility: [facility] Address: [address] [place] [address] Performed By: #### 3 5676-6, 66782-4, 24433-4, UUNR ####[facility]ATORYCLIA [id number] [address] STATES [facility] Creatinine Unsp time (U) [Ma ss/Vol]on 08-24-2022 Creatinine (U) [Mass/Vol] 58.8 mg/dL Normal 42.2-237.9 [facility] Comment on above: Order Comment: Speci men Type: URINE SPECIMENOrdering Facility: [facility] Address: [address] [place] [address] Performed By: #### 3 5676-6, 30741-7, 25919-2, UUNR ####[facility]ATORYCLIA [id number] [address] Osmolality Uron 08-24-2022 Osmolality (U) [Osmolality] 429 mosm/kg Normal 50-1200 [facility] Comment on above: Order Comment: Speci men Type: URINE SPECIMENOrdering Facility: [facility] Address: [address] [place] [address] Performed By: #### 2 695-5 ####[facility]ATORYCLIA [id number] [place] [address] [place] Sodium ?Tm Ur-sCncon 022 Sodium Unsp time (U) [Moles/Vol] 140 mmol/L Normal 14-216 [facility] Comment on above: Order Comment: Speci men Type: URINE SPECIMENOrdering Facility: [facility] Address: [address] [place] [address] Performed By: #### 3 5676-6, 99292-9, 06928-0, UUNR ####[facility]ATORYCLIA [id number] [place] [address] [place] UREA NITROGEN RND URon 08-24 Urea nitrogen [Mass/Vol] 366 mg/dL Normal 140-1500 [facility] Comment on above: Order Comment: Speci men Type: URINE SPECIMENOrdering Facility: [facility] Address: [address] [place] [address] Performed By: #### 3 5676-6, 47781-9, 91137-1, UUNR ####[facility]ATORYCLIA [id number] [address] [place] 25(OH)D3 SerPl-mCncon 2021 25-hydroxyvitamin D3 [Mass/Vol] 8.5 ng/mL Low >=30.0 [facility] Comment on above: Order Comment: Speci men Type: BLOOD SPECIMENOrdering Facility: [facility] Address: [address] [place] [address] Result Comment: Clas sification of 25 [place] Vitamin D status:Deficiency: <= 20.0 ng/ml.Insufficiency: 21.0-29.0 ng/ml.Sufficiency: >= 30.0 ng/ml. Performed By: #### 1 989-3 ####[facility]ORATORYCLIA [id number] [place] [address] [place] Bacteria Ur Culton 2 Bacteria identified Cx Nom (U) Abnormal [facility] Comment on above: Performed By: #### 5 0545-3, VZMIC ####[facility] LABCLIA [id number] [address]#### 630-4 ####[facility]ORATORYCLIA [id number] [address] Bacterial susceptibility dasilva el ASHU (Isol)on 08-23-2022 CULTURE, ORGANISM ASHU RESULT [id number] Abnormal [facility] Comment on above: Order Comment: Speci men Type: URINE SPECIMENOrdering Facility: [facility] Address: [address] [address] Result Comment: Kleb siella oxytocaIdentification performed by client. Performed By: #### 5 0545-3, VZMIC ####[facility] LABCLIA [id number] [address]#### 630-4 ####[facility]ORATORYCLIA [id number] [address] CASE MGT INIT ASSESon 2021 CASE MGT INIT ASSES Normal [facility] CBC W Auto Differential pane l (Bld)on 08-23-2022 Basophils (Bld) [#/Vol] 0.04 10*3/uL Normal <0.11 [facility] Comment on above: Order Comment: Speci men Type: BLOOD SPECIMENOrdering Facility: [facility] Address: [address] [address] Result Comment: Diff erential confirmed by visual scan of peripheral blood smear slide Performed By: #### 5 7021-8 ####[facility]ORATORYCLIA [id number] [address] Basophils/100 WBC (Bld) 0.6 % Normal A [facility] Comment on above: Order Comment: Speci men Type: BLOOD SPECIMENOrdering Facility: [facility] Address: [address] [address] Performed By: #### 5 7021-8 ####[facility]ORATORYCLIA [id number] [address] Differential cell count method Nom (Bld) Auto Normal [facility] Comment on above: Order Comment: Speci men Type: BLOOD SPECIMENOrdering Facility: [facility] Address: [address] [place] [address] Performed By: #### 5 7021-8 ####[facility]ORATORYCLIA [id number] [address] Eosinophils (Bld) [#/Vol] 0.39 10*3/uL Normal <0.46 [facility] Comment on above: Order Comment: Speci men Type: BLOOD SPECIMENOrdering Facility: [facility] Address: [address] [place] [address] Performed By: #### 5 7021-8 ####[facility]ORATORYCLIA [id number] [address] Eosinophils/100 WBC (Bld) 5.4 % Normal [facility] Comment on above: Order Comment: Speci men Type: BLOOD SPECIMENOrdering Facility: [facility] Address: [address] [place] [address] Performed By: #### 5 7021-8 ####[facility]ORATORYCLIA [id number] [address] Erythrocyte distribution width (RBC) [Ratio] 14.8 % Normal 11.5-15.0 [facility] Comment on above: Order Comment: Speci men Type: BLOOD SPECIMENOrdering Facility: [facility] Address: [address] [place] [address] Performed By: #### 5 7021-8 ####[facility]ORATORYCLIA [id number] [address] Hematocrit (Bld) [Volume fraction] 29.0 % Low 36.0-46.0 [facility] Comment on above: Order Comment: Speci men Type: BLOOD SPECIMENOrdering Facility: [facility] Address: [address] [place] [address] Performed By: #### 5 7021-8 ####[facility] LABORATORYCLIA [id number] [place] [address] [place] Hemoglobin (Bld) [Mass/Vol] 8.8 g/dL Low 11.5-15.5 [facility] Comment on above: Order Comment: Speci men Type: BLOOD SPECIMENOrdering Facility: [facility] Address: [address] [place] [address] Performed By: #### 5 7021-8 ####[facility]ATORYCLIA [id number] [place] [address] [place] Immature granulocytes (Bld) [#/Vol] 0.29 10*3/uL High <0.10 [facility] Comment on above: Order Comment: Speci men Type: BLOOD SPECIMENOrdering Facility: [facility] Address: [address] [place] [address] Performed By: #### 5 7021-8 ####[facility] LABORATORYCLIA [id number] [address] [place] Immature granulocytes/100 WBC (Bld) 4.0 % Normal [facility] Comment on above: Order Comment: Speci men Type: BLOOD SPECIMENOrdering Facility: [facility] Address: [address] [place] [address] Performed By: #### 5 7021-8 ####[facility] LABORATORYCLIA [id number] [place] [address] [place] Lymphocytes (Bld) [#/Vol] 1.32 10*3/uL Normal 1.00-4.00 [facility] Comment on above: Order Comment: Speci men Type: BLOOD SPECIMENOrdering Facility: [facility] Address: [address] [place] [address] Performed By: #### 5 7021-8 ####[facility] LABORATORYCLIA [id number] [place] [address] [place] Lymphocytes/100 WBC (Bld) 18.4 % Normal [facility] Comment on above: Order Comment: Speci men Type: BLOOD SPECIMENOrdering Facility: [facility] Address: [address] [place] [address] Performed By: #### 5 7021-8 ####[facility] LABORATORYCLIA [id number] [address] OF [facility] MCH (RBC) [Entitic mass] 29.2 pg Normal 26.0-34.0 [facility] Comment on above: Order Comment: Speci men Type: BLOOD SPECIMENOrdering Facility: [facility] Address: [address] [place] [address] Performed By: #### 5 7021-8 ####[facility] LABORATORYCLIA [id number] [address] MCHC (RBC) [Mass/Vol] 30.3 g/dL Low 30.5-36.0 [facility] Comment on above: Order Comment: Speci men Type: BLOOD SPECIMENOrdering Facility: [facility] Address: [address] [place] [address] Performed By: #### 5 7021-8 ####[facility] LABORATORYCLIA [id number] [address] MCV (RBC) [Entitic vol] 96.3 fL Normal 80.0-100.0 [facility] Comment on above: Order Comment: Speci men Type: BLOOD SPECIMENOrdering Facility: [facility] Address: [address] [place] [address] Performed By: #### 5 7021-8 ####[facility]ORATORYCLIA [id number] [address] Monocytes (Bld) [#/Vol] 0.58 10*3/uL Normal <0.87 [facility] Comment on above: Order Comment: Speci men Type: BLOOD SPECIMENOrdering Facility: [facility] Address: [address] [place] [address] Performed By: #### 5 7021-8 ####[facility]ORATORYCLIA [id number] [address] [place] Monocytes/100 WBC (Bld) 8.1 % Normal A [facility] Comment on above: Order Comment: Speci men Type: BLOOD SPECIMENOrdering Facility: [facility] Address: [address] [place] [address] Performed By: #### 5 7021-8 ####[facility]ORATORYCLIA [id number] [address] [place] Neutrophils (Bld) [#/Vol] 4.57 10*3/uL Normal 1.45-7.50 [facility] Comment on above: Order Comment: Speci men Type: BLOOD SPECIMENOrdering Facility: [facility] Address: [address] [place] [address] Performed By: #### 5 7021-8 ####[facility]ORATORYCLIA [id number] [address] Neutrophils/100 WBC (Bld) 63.5 % Normal [facility] Comment on above: Order Comment: Speci men Type: BLOOD SPECIMENOrdering Facility: [facility] Address: [address] [place] [address] Performed By: #### 5 7021-8 ####[facility]ORATORYCLIA [id number] [address] [place] Nucleated RBC (Bld) [#/Vol] 10*3/uL Normal <0.01 [facility] Comment on above: Order Comment: Speci men Type: BLOOD SPECIMENOrdering Facility: [facility] Address: [address] [place] [address] Performed By: #### 5 7021-8 ####[facility]ORATORYCLIA [id number] [address] [place] Nucleated RBC/100 WBC (Bld) [Ratio] 0.0 /100 WBC Normal [facility] Comment on above: Order Comment: Speci men Type: BLOOD SPECIMENOrdering Facility: [facility] Address: [address] [place], [place] [address] Performed By: #### 5 7021-8 ####[facility] LABORATORYCLIA [id number] [address] Platelet mean volume (Bld) [Entitic vol] 8.2 fL Low 9.0-12.7 [facility] Comment on above: Order Comment: Speci men Type: BLOOD SPECIMENOrdering Facility: [facility] Address: [address] [place], [place] [address] Performed By: #### 5 7021-8 ####[facility] LABORATORYCLIA [id number] [address] [place] Platelets (Bld) [#/Vol] 282 10*3/uL Normal 150-400 [facility] Comment on above: Order Comment: Speci men Type: BLOOD SPECIMENOrdering Facility: [facility] Address: [address] [place], [place] [address] Performed By: #### 5 7021-8 ####[facility] LABORATORYCLIA [id number] [place] [address] [place] RBC (Bld) [#/Vol] 3.01 10*6/uL Low 3.90-5.20 [facility] Comment on above: Order Comment: Speci men Type: BLOOD SPECIMENOrdering Facility: [facility] Address: [address] [place], [place] [address] Performed By: #### 5 7021-8 ####[facility] LABORATORYCLIA [id number] [address] [place] WBC (Bld) [#/Vol] 7.19 10*3/uL Normal 3.70-11.00 [facility] Comment on above: Order Comment: Speci men Type: BLOOD SPECIMENOrdering Facility: [facility] Address: [address] [place], [place] [address] Performed By: #### 5 7021-8 ####[facility] LABORATORYCLIA [id number] [address] [place] CNPNon 08-23-2022 CNPN Normal [facility] CONSULTon 08-23-2022 CONSULT Normal [facility] CONSULT Normal [facility] CONSULT PROGon 08-23-2022 CONSULT PROG Normal [facility] CONSULT PROG Normal [facility] Comprehensive metabolic 2000 panelon 08-23-2022 Albumin [Mass/Vol] 3.1 g/dL Low 3.9-4.9 [facility] Comment on above: Order Comment: Speci men Type: BLOOD SPECIMENOrdering Facility: [facility] Address: [address] [place] [address] Performed By: #### 2 4323-8, 76742-5, 6-4, 96501-8 ####[facility] LABORATORYCLIA [id number] [place] [address] [place] ALP [Catalytic activity/Vol] 71 U/L Normal 34-123 [facility] Comment on above: Order Comment: Speci men Type: BLOOD SPECIMENOrdering Facility: [facility] Address: [address] [place] [address] Performed By: #### 2 4323-8, 35395-4, 6-4, 18332-7 ####[facility] LABORATORYCLIA [id number] [place] [address] [place] ALT With P-5'-P [Catalytic activity/Vol] 8 U/L Normal 7-38 [facility] Comment on above: Order Comment: Speci men Type: BLOOD SPECIMENOrdering Facility: [facility] Address: [address] [place] [address] Performed By: #### 2 4323-8, 63100-9, 6-4, 62480-4 ####[facility] LABORATORYCLIA [id number] [place] [address] [place] Anion gap [Moles/Vol] 8 mmol/L Low 9-18 [facility] Comment on above: Order Comment: Speci men Type: BLOOD SPECIMENOrdering Facility: [facility] Address: [address] [place] [address] Performed By: #### 2 4323-8, 30229-9, 6-4, 33275-3 ####[facility] LABORATORYCLIA [id number] [place] [address] [place] AST With P-5'-P [Catalytic activity/Vol] 9 U/L Low 13-35 [facility] Comment on above: Order Comment: Speci men Type: BLOOD SPECIMENOrdering Facility: [facility] Address: [address] [place] [address] Performed By: #### 2 4323-8, 92185-2, 6-4, 65157-7 ####[facility] LABORATORYCLIA [id number] [place] [address] [place] Bilirubin [Mass/Vol] 0.2 mg/dL Normal 0.2-1.3 [facility] Comment on above: Order Comment: Speci men Type: BLOOD SPECIMENOrdering Facility: [facility] Address: [address] [place] [address] Performed By: #### 2 4323-8, 25036-7, 6-4, 73470-6 ####[facility]ORATORYCLIA [id number] [place] [address] [place] Calcium [Mass/Vol] 8.9 mg/dL Normal 8.5-10.2 [facility] Comment on above: Order Comment: Speci men Type: BLOOD SPECIMENOrdering Facility: [facility] Address: [address] [place] [address] Performed By: #### 2 4323-8, 56489-0, 6-4, 34527-4 ####[facility]ORATORYCLIA [id number] [place] [address] [place] Chloride [Moles/Vol] 100 mmol/L Normal 97-105 [facility] Comment on above: Order Comment: Speci men Type: BLOOD SPECIMENOrdering Facility: [facility] Address: [address] [place] [address] Performed By: #### 2 4323-8, 94265-1, 6-4, 61047-9 ####[facility] LABORATORYCLIA [id number] [address] STATES OF [facility] CO2 [Moles/Vol] 32 mmol/L High 22-30 [facility] Comment on above: Order Comment: Speci men Type: BLOOD SPECIMENOrdering Facility: [facility] Address: [address] [place] [address] Performed By: #### 2 4323-8, 58076-6, 2275-4, 21758-1 ####[facility]ITALCL[facility] [id number] [address] Creatinine [Mass/Vol] 1.36 mg/dL High 0.58-0.96 [facility] Comment on above: Order Comment: Speci men Type: BLOOD SPECIMENOrdering Facility: [facility] Address: [address] [place] [address] Performed By: #### 2 4323-8, 67802-0, 4, 85432-1 ####[facility] [id number] [address] ESTIMATED GLOMERULAR FILTRATION RATE 43 mL/min/1.73m??? Low >=60 [facility] Comment on above: Order Comment: Speci men Type: BLOOD SPECIMENOrdering Facility: [facility] Address: [address] [place] [address] Result Comment: Petra mated Glomerular Filtration Rate [...] actual GFR. Performed By: #### 2 4323-8, 99429-3, 6-4, 15358-5 ####[facility] LABORATORYCLIA [id number] [address] [place] [id number] [place] Glucose [Mass/Vol] 158 mg/dL High 74-99 [facility] Comment on above: Order Comment: Scott seals Type: BLOOD SPECIMENOrdering Facility: [facility] Address: [address] [place], [place] [address] Result Comment: The [place] [employer] (ADA) provides guidance for cutoff [...] Standards of Medical Care in Diabetes 2016, [employer]. Diabetes Care. 2016.39(Suppl 1). Performed By: #### 2 4323-8, 12246-2, 2275-, 60571-5 ####[facility] LABORATORYCLIA [id number] [place] [address] [place] Potassium [Moles/Vol] 4.2 mmol/L Normal 3.7-5.1 [facility] Comment on above: Order Comment: Scott seals Type: BLOOD SPECIMENOrdering Facility: [facility] Address: [address] [place], [place] [address] Performed By: #### 2 4323-8, 89703-5, 2276-01, 20472-3 ####[facility]ORATORYCLIA [id number] [place] [address] [place] Protein [Mass/Vol] 5.5 g/dL Low 6.3-8.0 [facility] Comment on above: Order Comment: Scott seals Type: BLOOD SPECIMENOrdering Facility: [facility] Address: [address] [place], [place] [address] Performed By: #### 2 4323-8, 01592-3, 2275-, 14765-5 ####[facility] LABORATORYCLIA [id number] [place] [address] [place] Sodium [Moles/Vol] 140 mmol/L Normal 136-144 [facility] Comment on above: Order Comment: Speci men Type: BLOOD SPECIMENOrdering Facility: [facility] Address: [address] [place] [address] Performed By: #### 2 4323-8, 04395-2, 6-4, 68031-1 ####[facility] LABORATORYCLIA [id number] [place] [address] [place] Urea nitrogen [Mass/Vol] 23 mg/dL High 7-21 [facility] Comment on above: Order Comment: Speci men Type: BLOOD SPECIMENOrdering Facility: [facility] Address: [address] [place] [address] Performed By: #### 2 4323-8, 33658-6, 6-4, 59542-4 ####[facility] LABORATORYCLIA [id number] [address] [place] Ferritin SerPl-mCncon 2021 Ferritin [Mass/Vol] 55.3 ng/mL Normal 14.7-205.1 [facility] Comment on above: Order Comment: Speci men Type: BLOOD SPECIMENOrdering Facility: [facility] Address: [address] [place] [address] Performed By: #### 2 4323-8, 64427-3, 6-4, 54824-9 ####[facility]ORATORYCLIA [id number] [place] [address] [place] Iron and Iron binding capaci ty panelon 08-23-2022 Iron [Mass/Vol] 44 ug/dL Normal 41-186 [facility] Comment on above: Order Comment: Speci men Type: BLOOD SPECIMENOrdering Facility: [facility] Address: [address] [place] [address] Performed By: #### 2 4323-8, 96549-6, 6-4, 44910-9 ####[facility]ORATORYCLIA [id number] [address] [place] Iron binding capacity [Mass/Vol] 233 ug/dL Normal 232-386 [facility] Comment on above: Order Comment: Speci men Type: BLOOD SPECIMENOrdering Facility: [facility] Address: [address] [address] Performed By: #### 2 4323-8, 81553-5, 6-4, 22492-1 ####[facility]ORATORYCLIA [id number] [address] STATES [facility] Iron saturation [Mass fraction] 18.9 % Normal 15.0-57.0 [facility] Comment on above: Order Comment: Speci men Type: BLOOD SPECIMENOrdering Facility: [facility] Address: [address] [place] [address] Performed By: #### 2 4323-8, 82141-4, 2275-4, 64320-7 ####[facility]ORATORYCLIA [id number] [place] [address] [place] MINIMUM INHIBITORY CONCENTRA TION (VIZION)on 08-23-2022 Minocycline [Susc] [address] [facility] Comment on above: Order Comment: Order ing Facility[facility] Address: [address] [address] Performed By: #### 5 0545-3, VZMIC ####[facility] LABCLIA [id number] [place] [address] [place]#### 630-4 ####[facility] LABORATORYCLIA [id number] [place] [address] [place] Magnesium SerPl-mCncon 08-23 Magnesium [Mass/Vol] 2.3 mg/dL Normal 1.7-2.3 [facility] Comment on above: Order Comment: Speci men Type: BLOOD SPECIMENOrdering Facility: [facility] Address: [address] [address] Performed By: #### 2 4323-8, 91934-2, 2276-4, 62210-0 ####[facility] LABORATORYCLIA [id number] [address] OF [facility] NURSING PROGon 08-23-2022 NURSING PROG Normal [facility] NURSING PROG Normal [facility] NURSING PROG Normal [facility] PTH-Intact SerPl-mCncon 10- Parathyrin.intact [Mass/Vol] 46 pg/mL Normal 15-65 [facility] Comment on above: Order Comment: Speci men Type: BLOOD SPECIMENOrdering Facility: [facility] Address: [address] [place] [address] Result Comment: Test methodology for this assay has moved from [employer] XP to [employer] 8000 effective August 01, 2022. Please note there may be a change in the reporting units and/or reference range. Performed By: #### 2 731-8 ####[facility] LABORATORYCLIA [id number] [address] [place] THERAPY NTon 08-23-2022 THERAPY NT Normal [facility] THERAPY NT Normal [facility] US KIDNEY/BLADDERon 08-23-20 22 US KIDNEY/BLADDER Normal [facility] CBC W Auto Differential pane l (Bld)on 08-22-2022 Basophils (Bld) [#/Vol] 0.13 10*3/uL High <0.11 [facility] Comment on above: Order Comment: Speci men Type: BLOOD SPECIMENOrdering Facility: [facility] Address: [address] [address] Performed By: #### 5 7021-8 ####[facility]ORATORYCLIA [id number] [address] Basophils/100 WBC (Bld) 2.0 % Normal A [facility] Comment on above: Order Comment: Speci men Type: BLOOD SPECIMENOrdering Facility: [facility] Address: [address] [address] Performed By: #### 5 7021-8 ####[facility] LABORATORYCLIA [id number] [place] [address] [place] Dacrocytes LM Ql (Bld) Few Normal [facility] Comment on above: Order Comment: Speci men Type: BLOOD SPECIMENOrdering Facility: [facility] Address: [address] [place] [address] Performed By: #### 5 7021-8 ####[facility] LABORATORYCLIA [id number] [address] Differential cell count method Nom (Bld) Manual Normal [facility] Comment on above: Order Comment: Speci men Type: BLOOD SPECIMENOrdering Facility: [facility] Address: [address] [place] [address] Performed By: #### 5 7021-8 ####[facility] LABORATORYCLIA [id number] [place] [address] [place] Eosinophils (Bld) [#/Vol] 0.52 10*3/uL High <0.46 [facility] Comment on above: Order Comment: Speci men Type: BLOOD SPECIMENOrdering Facility: [facility] Address: [address] [place] [address] Performed By: #### 5 7021-8 ####[facility] LABORATORYCLIA [id number] [address] Eosinophils/100 WBC (Bld) 8.0 % Normal [facility] Comment on above: Order Comment: Speci men Type: BLOOD SPECIMENOrdering Facility: [facility] Address: [address] [place] [address] Performed By: #### 5 7021-8 ####[facility] LABORATORYCLIA [id number] [address] [place] Erythrocyte distribution width (RBC) [Ratio] 14.6 % Normal 11.5-15.0 [facility] Comment on above: Order Comment: Speci men Type: BLOOD SPECIMENOrdering Facility: [facility] Address: [address] [place] [address] Performed By: #### 5 7021-8 ####[facility] LABORATORYCLIA [id number] [address] STATES OF [facility] Hematocrit (Bld) [Volume fraction] 29.7 % Low 36.0-46.0 [facility] Comment on above: Order Comment: Speci men Type: BLOOD SPECIMENOrdering Facility: [facility] Address: [address] [place] [address] Performed By: #### 5 7021-8 ####[facility] LABORATORYCLIA [id number] [address] OF [place] Hemoglobin (Bld) [Mass/Vol] 9.1 g/dL Low 11.5-15.5 [facility] Comment on above: Order Comment: Speci men Type: BLOOD SPECIMENOrdering Facility: [facility] Address: [address] [place] [address] Performed By: #### 5 7021-8 ####[facility] LABORATORYCLIA [id number] [address] Lymphocytes (Bld) [#/Vol] 0.97 10*3/uL Low 1.00-4.00 [facility] Comment on above: Order Comment: Speci men Type: BLOOD SPECIMENOrdering Facility: [facility] Address: [address] [place] [address] Performed By: #### 5 7021-8 ####[facility] LABORATORYCLIA [id number] [address] Lymphocytes/100 WBC (Bld) 15.0 % Normal [facility] Comment on above: Order Comment: Speci men Type: BLOOD SPECIMENOrdering Facility: [facility] Address: [address] [place] [address] Performed By: #### 5 7021-8 ####[facility] LABORATORYCLIA [id number] [address] OF [place] MCH (RBC) [Entitic mass] 29.1 pg Normal 26.0-34.0 [facility] Comment on above: Order Comment: Speci men Type: BLOOD SPECIMENOrdering Facility: [facility] Address: [address] [place] [address] Performed By: #### 5 7021-8 ####[facility] LABORATORYCLIA [id number] [address] MCHC (RBC) [Mass/Vol] 30.6 g/dL Normal 30.5-36.0 [facility] Comment on above: Order Comment: Speci men Type: BLOOD SPECIMENOrdering Facility: [facility] Address: [address] [place] [address] Performed By: #### 5 7021-8 ####[facility] LABORATORYCLIA [id number] [address] MCV (RBC) [Entitic vol] 94.9 fL Normal 80.0-100.0 [facility] Comment on above: Order Comment: Speci men Type: BLOOD SPECIMENOrdering Facility: [facility] Address: [address] [place] [address] Performed By: #### 5 7021-8 ####[facility] LABORATORYCLIA [id number] [address] Monocytes (Bld) [#/Vol] 0.32 10*3/uL Normal <0.87 [facility] Comment on above: Order Comment: Speci men Type: BLOOD SPECIMENOrdering Facility: [facility] Address: [address] [place] [address] Performed By: #### 5 7021-8 ####[facility] LABORATORYCLIA [id number] [address] Monocytes/100 WBC (Bld) 5.0 % Normal [facility] Comment on above: Order Comment: Speci men Type: BLOOD SPECIMENOrdering Facility: [facility] Address: [address] [place] [address] Performed By: #### 5 7021-8 ####[facility] LABORATORYCLIA [id number] [address] [place] MYELO% 1.0 % Normal [facility] Comment on above: Order Comment: Speci men Type: BLOOD SPECIMENOrdering Facility: [facility] Address: [address] [place] [address] Performed By: #### 5 7021-8 ####[facility] LABORATORYCLIA [id number] [address] STATES OF [place] Neutrophils (Bld) [#/Vol] 4.48 10*3/uL Normal 1.45-7.50 [facility] Comment on above: Order Comment: Speci men Type: BLOOD SPECIMENOrdering Facility: [facility] Address: [address] [place] [address] Performed By: #### 5 7021-8 ####[facility] LABORATORYCLIA [id number] [address] [place] Neutrophils/100 WBC (Bld) 69.0 % Normal [facility] Comment on above: Order Comment: Speci men Type: BLOOD SPECIMENOrdering Facility: [facility] Address: [address] [place] [address] Performed By: #### 5 7021-8 ####[facility] LABORATORYCLIA [id number] [address] [place] Nucleated RBC (Bld) [#/Vol] 10*3/uL Normal <0.01 [facility] Comment on above: Order Comment: Speci men Type: BLOOD SPECIMENOrdering Facility: [facility] Address: [address] [place] [address] Performed By: #### 5 7021-8 ####[facility] LABORATORYCLIA [id number] [address] Nucleated RBC/100 WBC (Bld) [Ratio] 0.0 /100 WBC Normal [facility] Comment on above: Order Comment: Speci men Type: BLOOD SPECIMENOrdering Facility: [facility] Address: [address] [place] [address] Performed By: #### 5 7021-8 ####[facility] LABORATORYCLIA [id number] [place] [address] [place] Platelet mean volume (Bld) [Entitic vol] 8.1 fL Low 9.0-12.7 [facility] Comment on above: Order Comment: Speci men Type: BLOOD SPECIMENOrdering Facility: [facility] Address: [address] [address] Performed By: #### 5 7021-8 ####[facility] LABORATORYCLIA [id number] [place] [address] [place] Platelets (Bld) [#/Vol] 251 10*3/uL Normal 150-400 [facility] Comment on above: Order Comment: Speci men Type: BLOOD SPECIMENOrdering Facility: [facility] Address: [address] [place] [address] Performed By: #### 5 7021-8 ####[facility] LABORATORYCLIA [id number] [address] STATES [facility] Platelets Estimate (Bld) [#/Vol] Adequate Normal [facility] Comment on above: Order Comment: Speci men Type: BLOOD SPECIMENOrdering Facility: [facility] Address: [facility] [address] Performed By: #### 5 7021-8 ####[facility] LABORATORYCLIA [id number] [place] [address] [place] RBC (Bld) [#/Vol] 3.13 10*6/uL Low 3.90-5.20 [facility] Comment on above: Order Comment: Speci men Type: BLOOD SPECIMENOrdering Facility: [facility] Address: [address] Performed By: #### 5 7021-8 ####[facility] LABORATORYCLIA [id number] [address] RED CELL MORPH Reviewed Normal [facility] Comment on above: Order Comment: Speci men Type: BLOOD SPECIMENOrdering Facility: [facility] Address: [address] [address] Performed By: #### 5 7021-8 ####[facility] LABORATORYCLIA [id number] [address] OF [place] WBC (Bld) [#/Vol] 6.49 10*3/uL Normal 3.70-11.00 [facility] Comment on above: Order Comment: Speci men Type: BLOOD SPECIMENOrdering Facility: [facility] Address: [address] [place] [address] Performed By: #### 5 7021-8 ####[facility] LABORATORYCLIA [id number] [address] STATES [facility] Basophils (Bld) [#/Vol] 10*3/uL Normal <0.11 [facility] Comment on above: Order Comment: Speci men Type: BLOOD SPECIMENOrdering Facility: [facility] Address: [address] [place] [address] Performed By: #### 5 7021-8 ####[facility] LABCLIA [id number] [address] STATES OF [place] Basophils/100 WBC (Bld) 0.1 % Normal [facility] Comment on above: Order Comment: Speci men Type: BLOOD SPECIMENOrdering Facility: [facility] Address: [address] [place] [address] Performed By: #### 5 7021-8 ####[facility] LABCLIA [id number] [address] [address] [place] Differential cell count method Nom (Bld) Auto Normal [facility] Comment on above: Order Comment: Speci men Type: BLOOD SPECIMENOrdering Facility: [facility] Address: [address] [place] [address] Performed By: #### 5 7021-8 ####[facility] LABCLIA [id number] [address] [address] [place] Eosinophils (Bld) [#/Vol] 0.49 10*3/uL High <0.46 [facility] Comment on above: Order Comment: Speci men Type: BLOOD SPECIMENOrdering Facility: [facility] Address: [address] [place] [address] Performed By: #### 5 7021-8 ####[facility] LABCLIA [id number] [address] [address] [place] Eosinophils/100 WBC (Bld) 6.2 % Normal [facility] Comment on above: Order Comment: Speci men Type: BLOOD SPECIMENOrdering Facility: [facility] Address: [address] [place] [address] Performed By: #### 5 7021-8 ####[facility] LABCLIA [id number] [address] STATES OF [place] Erythrocyte distribution width (RBC) [Ratio] 14.5 % Normal 11.5-15.0 [facility] Comment on above: Order Comment: Speci men Type: BLOOD SPECIMENOrdering Facility: [facility] Address: [address] [place] [address] Performed By: #### 5 7021-8 ####[facility] LABCLIA [id number] [address] [address] [place] Hematocrit (Bld) [Volume fraction] 32.3 % Low 36.0-46.0 [facility] Comment on above: Order Comment: Speci men Type: BLOOD SPECIMENOrdering Facility: [facility] Address: [address] [place] [address] Performed By: #### 5 7021-8 ####[facility] LABCLIA [id number] [address] [address] [place] Hemoglobin (Bld) [Mass/Vol] 9.8 g/dL Low 11.5-15.5 [facility] Comment on above: Order Comment: Speci men Type: BLOOD SPECIMENOrdering Facility: [facility] Address: [address] [place], [place] [address] Performed By: #### 5 7021-8 ####[facility] LABCLIA [id number] [address] [address] [place] Immature granulocytes (Bld) [#/Vol] 0.17 10*3/uL High <0.10 [facility] Comment on above: Order Comment: Speci men Type: BLOOD SPECIMENOrdering Facility: [facility] Address: [address] [place] [address] Performed By: #### 5 7021-8 ####[facility] LABCLIA [id number] [address] Immature granulocytes/100 WBC (Bld) 2.1 % Normal [facility] Comment on above: Order Comment: Speci men Type: BLOOD SPECIMENOrdering Facility: [facility] Address: [address] [place] [address] Performed By: #### 5 7021-8 ####[facility] LABCLIA [id number] [address] [address] [place] Lymphocytes (Bld) [#/Vol] 1.17 10*3/uL Normal 1.00-4.00 [facility] Comment on above: Order Comment: Speci men Type: BLOOD SPECIMENOrdering Facility: [facility] Address: [address] [place] [address] Performed By: #### 5 7021-8 ####[facility] LABCLIA [id number] [address] Lymphocytes/100 WBC (Bld) 14.8 % Normal [facility] Comment on above: Order Comment: Speci men Type: BLOOD SPECIMENOrdering Facility: [facility] Address: [address] [place] [address] Performed By: #### 5 7021-8 ####[facility] LABCLIA [id number] [address] MCH (RBC) [Entitic mass] 29.6 pg Normal 26.0-34.0 [facility] Comment on above: Order Comment: Speci men Type: BLOOD SPECIMENOrdering Facility: [facility] Address: [address] [place] [address] Performed By: #### 5 7021-8 ####[facility] [employer] LABCLIA [id number] [address] [address] [place] MCHC (RBC) [Mass/Vol] 30.3 g/dL Low 30.5-36.0 [facility] Comment on above: Order Comment: Speci men Type: BLOOD SPECIMENOrdering Facility: [facility] Address: [address] [place] [address] Performed By: #### 5 7021-8 ####[facility] LABCLIA [id number] [address] OF [place] MCV (RBC) [Entitic vol] 97.6 fL Normal 80.0-100.0 A [facility] Comment on above: Order Comment: Speci men Type: BLOOD SPECIMENOrdering Facility: [facility] Address: [address] [place] [address] Performed By: #### 5 7021-8 ####[facility] LABCLIA [id number] [address] [address] [facility] OF [place] Monocytes (Bld) [#/Vol] 0.59 10*3/uL Normal <0.87 [facility] Comment on above: Order Comment: Speci men Type: BLOOD SPECIMENOrdering Facility: [facility] Address: [address] [place] [address] Performed By: #### 5 7021-8 ####[facility] [employer] LABCLIA [id number] [address] [address] [facility] Monocytes/100 WBC (Bld) 7.4 % Normal A [facility] Comment on above: Order Comment: Speci men Type: BLOOD SPECIMENOrdering Facility: [facility] Address: [address] [place] [address] Performed By: #### 5 7021-8 ####[facility] LABCLIA [id number] [address] [address] [place] Neutrophils (Bld) [#/Vol] 5.50 10*3/uL Normal 1.45-7.50 [facility] Comment on above: Order Comment: Speci men Type: BLOOD SPECIMENOrdering Facility: [facility] Address: [address] [place] [address] Performed By: #### 5 7021-8 ####[facility] LABCLIA [id number] [address] [address] [place] Neutrophils/100 WBC (Bld) 69.4 % Normal [facility] Comment on above: Order Comment: Speci men Type: BLOOD SPECIMENOrdering Facility: [facility] Address: [address] [place] [address] Performed By: #### 5 7021-8 ####[facility] LABCLIA [id number] [address] [place] [address] [place] Platelet mean volume (Bld) [Entitic vol] 8.3 fL Low 9.0-12.7 [facility] Comment on above: Order Comment: Speci men Type: BLOOD SPECIMENOrdering Facility: [facility] Address: [address] [place], [place] [address] Performed By: #### 5 7021-8 ####[facility] LABCLIA [id number] [address] [place] [address] [place] Platelets (Bld) [#/Vol] 272 10*3/uL Normal 150-400 [facility] Comment on above: Order Comment: Speci men Type: BLOOD SPECIMENOrdering Facility: [facility] Address: [address] [place], [place] [address] Performed By: #### 5 7021-8 ####[facility] LABCLIA [id number] [place] [address] [place] RBC (Bld) [#/Vol] 3.31 10*6/uL Low 3.90-5.20 [facility] Comment on above: Order Comment: Speci men Type: BLOOD SPECIMENOrdering Facility: [facility] Address: [address] [place] [address] Performed By: #### 5 7021-8 ####[facility] LABCLIA [id number] [place] [address] [place] WBC (Bld) [#/Vol] 7.93 10*3/uL Normal 3.70-11.00 [facility] Comment on above: Order Comment: Speci men Type: BLOOD SPECIMENOrdering Facility: [facility] Address: [address] [place] [address] Performed By: #### 5 7021-8 ####[facility] LABCLIA [id number] [place] [address] [place] [facility] CONSULTon 08-22-2022 CONSULT Normal [facility] Comprehensive metabolic 2000 panelon 08-22-2022 Albumin [Mass/Vol] 3.1 g/dL Low 3.9-4.9 [facility] Comment on above: Order Comment: Speci men Type: BLOOD SPECIMENOrdering Facility: [facility] Address: [address] [place] [address] Performed By: #### 2 4323-8, 3024-7, 3016-3, 51668-6 ####[facility] LABORATORYCLIA [id number] [place], [place] [id number] [place] [address] [place] [facility] ALP [Catalytic activity/Vol] 77 U/L Normal 34-123 [facility] Comment on above: Order Comment: Speci men Type: BLOOD SPECIMENOrdering Facility: [facility] Address: [address] [place] [address] Performed By: #### 2 4323-8, 3024-7, 3016-3, 04740-7 ####[facility] LABORATORYCLIA [id number] [place] [address] [place] ALT With P-5'-P [Catalytic activity/Vol] 8 U/L Normal 7-38 [facility] Comment on above: Order Comment: Speci men Type: BLOOD SPECIMENOrdering Facility: [facility] Address: [address] [place] [address] Performed By: #### 2 4323-8, 3024-7, 3016-3, 84692-4 ####[facility] LABORATORYCLIA [id number] [place] [address] [place] Anion gap [Moles/Vol] 10 mmol/L Normal 9-18 [facility] Comment on above: Order Comment: Speci men Type: BLOOD SPECIMENOrdering Facility: [facility] Address: [address] [place] [address] Performed By: #### 2 4323-8, 3024-7, 6-3, 80530-0 ####[facility] LABORATORYCLIA [id number] [address] STATES OF [facility] AST With P-5'-P [Catalytic activity/Vol] 9 U/L Low 13-35 [facility] Comment on above: Order Comment: Speci men Type: BLOOD SPECIMENOrdering Facility: [facility] Address: [address] [place] [address] Performed By: #### 2 4323-8, 3024-7, 3016-3, 05993-0 ####[facility] LABORATORYCLIA [id number] [address] STATES OF [place] Bilirubin [Mass/Vol] 0.3 mg/dL Normal 0.2-1.3 [facility] Comment on above: Order Comment: Speci men Type: BLOOD SPECIMENOrdering Facility: [facility] Address: [address] [place] [address] Performed By: #### 2 4323-8, 3024-7, 3016-3, 13097-9 ####[facility] LABORATORYCLIA [id number] [place] [address] [place] Calcium [Mass/Vol] 8.6 mg/dL Normal 8.5-10.2 [facility] Comment on above: Order Comment: Speci men Type: BLOOD SPECIMENOrdering Facility: [facility] Address: [address] [place] [address] Performed By: #### 2 4323-8, 3024-7, 3016-3, 72637-8 ####[facility] LABORATORYCLIA [id number] [place] [address] [place] Chloride [Moles/Vol] 100 mmol/L Normal 97-105 [facility] Comment on above: Order Comment: Speci men Type: BLOOD SPECIMENOrdering Facility: [facility] Address: [address] [place] [address] Performed By: #### 2 4323-8, 3024-7, 3016-3, 12250-4 ####[facility] LABORATORYCLIA [id number] [address] [place] CO2 [Moles/Vol] 29 mmol/L Normal 22-30 [facility] Comment on above: Order Comment: Speci men Type: BLOOD SPECIMENOrdering Facility: [facility] Address: [address] [place] [address] Performed By: #### 2 4323-8, 3024-7, 3016-3, 84385-0 ####[facility] LABORATORYCLIA [id number] [place] [address] [place] Creatinine [Mass/Vol] 1.19 mg/dL High 0.58-0.96 [facility] Comment on above: Order Comment: Speci men Type: BLOOD SPECIMENOrdering Facility: [facility] Address: [address] [place] [address] Performed By: #### 2 4323-8, 3024-7, 3016-3, 33318-0 ####[facility] LABORATORYCLIA [id number] [place] [address] [place] ESTIMATED GLOMERULAR FILTRATION RATE 51 mL/min/1.73m??? Low >=60 [facility] Comment on above: Order Comment: Scott seals Type: BLOOD SPECIMENOrdering Facility: [facility] Address: [address] [place], [place] [address] Result Comment: Petra mated Glomerular Filtration Rate [...] Performed By: #### 2 4323-8, 3024-7, 3016-3, 78172-7 ####[facility] LABORATORYCLIA [id number] [place] [address] [place] Glucose [Mass/Vol] 258 mg/dL High 74-99 [facility] Comment on above: Order Comment: Scott seals Type: BLOOD SPECIMENOrdering Facility: [facility] Address: [address] [place], [place] [address] Result Comment: The [place] [employer] (ADA) provides guidance for cutoff [...] Standards of Medical Care in Diabetes 2016, [place] [employer]. Diabetes Care. 2016.39(Suppl 1). Performed By: #### 2 4323-8, 3024-7, 3016-3, 38852-5 ####[facility] LABORATORYCLIA [id number] [place] [address] [place] Potassium [Moles/Vol] 4.1 mmol/L Normal 3.7-5.1 [facility] Comment on above: Order Comment: Speci men Type: BLOOD SPECIMENOrdering Facility: [facility] Address: [address] [place] [address] Performed By: #### 2 4323-8, 3024-7, 3016-3, 50887-6 ####[facility] LABORATORYCLIA [id number] [place] [address] [place] Protein [Mass/Vol] 5.8 g/dL Low 6.3-8.0 [facility] Comment on above: Order Comment: Speci men Type: BLOOD SPECIMENOrdering Facility: [facility] Address: [address] [place] [address] Performed By: #### 2 4323-8, 3024-7, 3016-3, 96356-0 ####[facility] LABORATORYCLIA [id number] [place] [address] [place] Sodium [Moles/Vol] 139 mmol/L Normal 136-144 [facility] Comment on above: Order Comment: Speci men Type: BLOOD SPECIMENOrdering Facility: [facility] Address: [address] [place] [address] Performed By: #### 2 4323-8, 3024-7, 3016-3, 95284-9 ####[facility]ORATORYCLIA [id number] [place] [address] [place] Urea nitrogen [Mass/Vol] 20 mg/dL Normal 7-21 [facility] Comment on above: Order Comment: Speci men Type: BLOOD SPECIMENOrdering Facility: [facility] Address: [address] [place] [address] Performed By: #### 2 4323-8, 3024-7, 3016-3, 44774-3 ####[facility]ORATORYCLIA [id number] [place] [address] [place] Albumin [Mass/Vol] 2.6 g/dL Low 3.4-5.0 [facility] Comment on above: Order Comment: Speci men Type: BLOOD SPECIMENOrdering Facility: [facility] Address: [address] [place] [address] Performed By: #### 2 4323-8 ####[facility] LABCLIA [id number] [address] ALP [Catalytic activity/Vol] 79 U/L Normal 46-116 [facility] Comment on above: Order Comment: Speci men Type: BLOOD SPECIMENOrdering Facility: [facility] Address: [address] [place] [address] Performed By: #### 2 4323-8 ####[facility] LABCLIA [id number] [address] OF [facility] ALT With P-5'-P [Catalytic activity/Vol] 15 U/L Normal 12-78 [facility] Comment on above: Order Comment: Speci men Type: BLOOD SPECIMENOrdering Facility: [facility] Address: [address] [place] [address] Performed By: #### 2 4323-8 ####ERNST HOWELL [employer] LABCLIA [id number] [address] OF [place] Anion gap [Moles/Vol] 10 mmol/L Normal 8-16 [facility] Comment on above: Order Comment: Speci men Type: BLOOD SPECIMENOrdering Facility: [facility] Address: [address] [place] [address] Performed By: #### 2 4323-8 ####ERNST HOWELL [facility] LABCLIA [id number] [address] OF [place] AST With P-5'-P [Catalytic activity/Vol] 18 U/L Normal 15-46 [facility] Comment on above: Order Comment: Speci men Type: BLOOD SPECIMENOrdering Facility: [facility] Address: [address] [place] [address] Performed By: #### 2 4323-8 ####[facility] LABCLIA [id number] [place] [address] [place] Bilirubin [Mass/Vol] 0.3 mg/dL Normal 0.2-1.0 [facility] Comment on above: Order Comment: Speci men Type: BLOOD SPECIMENOrdering Facility: [facility] Address: [address] [place] [address] Performed By: #### 2 4323-8 ####MALIMIKA HOWELL GRE[employer] LABCLIA [id number] [place] [address] [place] Calcium [Mass/Vol] 8.5 mg/dL Normal 8.5-10.1 [facility] Comment on above: Order Comment: Speci men Type: BLOOD SPECIMENOrdering Facility: [facility] Address: [address] [place] [address] Performed By: #### 2 4323-8 ####[facility] LABCLIA [id number] [place] [address] [place] Chloride [Moles/Vol] 98 mmol/L Normal 98-107 [facility] Comment on above: Order Comment: Speci men Type: BLOOD SPECIMENOrdering Facility: [facility] Address: [address] [place] [address] Performed By: #### 2 4323-8 ####ILMIKA HOWELL GRE[employer] LABCLIA [id number] [place] [address] [place] CO2 [Moles/Vol] 30 mmol/L Normal 21-32 [facility] Comment on above: Order Comment: Speci men Type: BLOOD SPECIMENOrdering Facility: [facility] Address: [address] [place] [address] Performed By: #### 2 4323-8 ####[facility] GRE[facility] LABCLIA [id number] [place] [address] [place] Creatinine [Mass/Vol] 1.35 mg/dL High 0.51-0.95 [facility] Comment on above: Order Comment: Speci men Type: BLOOD SPECIMENOrdering Facility: [facility] Address: [address] [place] [address] Performed By: #### 2 4323-8 ####ERNST MINAIA [id number] [place] [address] [place] ESTIMATED GLOMERULAR FILTRATION RATE 44 mL/min/1.73m??? Low >=60 [facility] Comment on above: Order Comment: Scott seals Type: BLOOD SPECIMENOrdering Facility: [facility] Address: [address] [place] [address] Result Comment: Petra mated Glomerular Filtration Rate [...] By: #### 2 4323-8 ####ERNST PATEL LABIA [id number] [place] [address] [place] Glucose [Mass/Vol] 281 mg/dL High 70-99 [facility] Comment on above: Order Comment: Scott seals Type: BLOOD SPECIMENOrdering Facility: [facility] Address: [address] [place] [address] Result Comment: The [place] Diabetes Association (ADA) provides guidance for cutoff [...] Standards of Medical Care in Diabetes 2016, [place] Diabetes Association. Diabetes Care. 2016.39(Suppl 1). Performed By: #### 2 4323-8 ####ERNST HOWELL GREEN LABCLIA [id number] [place] [address] [place] Potassium [Moles/Vol] 4.6 mmol/L Normal 3.5-5.1 [facility] Comment on above: Order Comment: Speci men Type: BLOOD SPECIMENOrdering Facility: [facility] Address: [address] [place] [address] Performed By: #### 2 4323-8 ####[facility] GRE[facility] LABCLIA [id number] [place] [address] [place] Protein [Mass/Vol] 6.8 g/dL Normal 6.4-8.2 [facility] Comment on above: Order Comment: Speci men Type: BLOOD SPECIMENOrdering Facility: [facility] Address: [address] [place] [address] Performed By: #### 2 4323-8 ####[facility] LABCLIA [id number] [place] [address] [place] Sodium [Moles/Vol] 138 mmol/L Normal 136-145 [facility] Comment on above: Order Comment: Speci men Type: BLOOD SPECIMENOrdering Facility: [facility] Address: [address] [place] [address] Performed By: #### 2 4323-8 ####[facility] [employer] LABCLIA [id number] [place] [address] [place] Urea nitrogen [Mass/Vol] 25 mg/dL High 7-18 [facility] Comment on above: Order Comment: Speci men Type: BLOOD SPECIMENOrdering Facility: [facility] Address: [address] [place] [address] Performed By: #### 2 4323-8 ####[facility] GREEN LABCLIA [id number] [place] [address] [place] ECG COMPLETEon 08-22-2022 ECG COMPLETE Normal [facility] ED NOTEon 08-22-2022 ED NOTE HNO ID: [id number] Author: Maryan Marcum RN Service: Emergency Medicine Author Type: Registered Nurse Type: ED Notes Filed: 08/22/2022 8:57 AM Note Text: Report given to [facility] here to take pt to 7107-2 Normal [facility] ED NOTE HNO ID: [id number] Author: Maryan Marcum RN Service: Emergency Medicine Author Type: Registered Nurse Type: ED Notes Filed: 08/22/2022 8:56 AM Note Text: Normal [facility] ED NOTE Normal [facility] ED NOTE Normal [facility] ED PROV NOTEon 08-22-2022 ED PROV NOTE Normal [facility] ED PROV NOTE Normal [facility] HISTORY PHYSICALon HISTORY PHYSICAL Normal [facility] Magnesium SerPl-mCncon 08-22 Magnesium [Mass/Vol] 1.6 mg/dL Low 1.7-2.3 [facility] Comment on above: Order Comment: Speci men Type: BLOOD SPECIMENOrdering Facility: [facility] Address: [address] [place] [address] Performed By: #### 1 9123-9 ####[facility] LABORATORYCLIA [id number] [address] STATES OF [place] NT-proBNP SerPl-mCncon 08-22 Natriuretic peptide.B prohormone N-Terminal [Mass/Vol] 199 pg/mL High <125 [facility] Comment on above: Order Comment: Speci men Type: BLOOD SPECIMENOrdering Facility: [facility] Address: [address] [place] [address] Performed By: #### 3 3762-6, TROP ####[facility] LABCLIA [id number] [address] STATES [place] Procalcitonin SerPl-mCncon 1 Procalcitonin [Mass/Vol] ng/mL Normal <0.09 [facility] Comment on above: Order Comment: Speci men Type: BLOOD SPECIMENOrdering Facility: [facility] Address: [address] [place] [address] Result Comment: For a guided interpretation of test results, please visit the Change in Procalcitonin Calculator, [email or web address]. Performed By: #### 2 4323-8, 3024-7, 3016-3, 79619-5 ####[facility] LABORATORYCLIA [id number] [place] [address] [place] SARS-CoV-2 RNA Resp Ql IGGY+p robeon 08-22-2022 SARS-CoV-2 (COVID-19) RNA IGGY+probe Ql (Resp) COVID 19 RESULT: SARS-CoV-2 (Agent of COVID-19) Not Detected by RT-PCR or equivalent method. This test has been authorized by FDA under an Emergency Use Authorization (EUA). Normal [facility] Comment on above: Performed By: #### 9 4500-6 ####[place] [facility] LABCLIA [id number] [place] [address] [place] T4 Free SerPl-mCncon 022 Free T4 [Mass/Vol] 1.0 ng/dL Normal 0.9-1.7 [facility] Comment on above: Order Comment: Speci men Type: BLOOD SPECIMENOrdering Facility: [facility] Address: [address] [place] [address] Performed By: #### 2 4323-8, 3024-7, 3016-3, 90402-3 ####[facility] LABORATORYCLIA [id number] [place] [address] [place] TROPONIN Ion 08-22-2022 Troponin I.cardiac [Mass/Vol] 0.000 ng/mL Normal <0.040 [facility] Comment on above: Order Comment: Speci men Type: BLOOD SPECIMENOrdering Facility: [facility] Address: [address] [place] [address] Performed By: #### 3 3762-6, TROP ####[place] [facility] LABCLIA [id number] [place] [id number] [place] TSH SerPl-aCncon 08-22-2022 TSH Qn 2.850 m[IU]/L Normal 0.270-4.200 [facility] Comment on above: Order Comment: Speci men Type: BLOOD SPECIMENOrdering Facility: [facility] Address: [address] [place] [address] Performed By: #### 2 4323-8, 3024-7, 3016-3, 94317-6 ####[facility] LABORATORYCLIA [id number] [place] [address] [place] US DVT LOWER BILon US DVT LOWER CHERISE Normal [facility] Urinalysis complete panel (U )on 08-22-2022 Bacteria LM.HPF (Urine sed) [#/Area] Many Abnormal None Seen [facility] Comment on above: Order Comment: Speci men Type: URINE SPECIMENOrdering Facility: [facility] Address: [address] [place] [address] Performed By: #### 2 4356-8 ####[facility] LABORATORYCLIA [id number] [address] STATES [facility] Bilirubin Ql (U) Negative Normal Negative [facility] Comment on above: Order Comment: Speci men Type: URINE SPECIMENOrdering Facility: [facility] Address: [address] [place] [address] Performed By: #### 2 4356-8 ####[facility] LABORATORYCLIA [id number] [address] [place] Clarity (Unsp spec) Clear Normal Clear [facility] Comment on above: Order Comment: Speci men Type: URINE SPECIMENOrdering Facility: [facility] Address: [address] [place] [address] Performed By: #### 2 4356-8 ####[facility] LABORATORYCLIA [id number] [address] [place] Color (U) Light Yellow Normal yellow [facility] Comment on above: Order Comment: Speci men Type: URINE SPECIMENOrdering Facility: [facility] Address: [address] [place] [address] Performed By: #### 2 4356-8 ####[facility] LABORATORYCLIA [id number] [address] Epithelial cells LM.HPF (Urine sed) [#/Area] Few Abnormal None Seen [facility] Comment on above: Order Comment: Speci men Type: URINE SPECIMENOrdering Facility: [facility] Address: [address] [place] [address] Performed By: #### 2 4356-8 ####[facility] LABORATORYCLIA [id number] [address] Glucose Test strip (U) [Mass/Vol] 2+ Abnormal Negative [facility] Comment on above: Order Comment: Speci men Type: URINE SPECIMENOrdering Facility: [facility] Address: [address] [place] [address] Performed By: #### 2 4356-8 ####[facility] LABORATORYCLIA [id number] [address] STATES [facility] Hemoglobin Ql (U) 1+ Abnormal Negative [facility] Comment on above: Order Comment: Speci men Type: URINE SPECIMENOrdering Facility: [facility] Address: [address] [place] [address] Performed By: #### 2 4356-8 ####[facility] LABORATORYCLIA [id number] [address] Hyaline casts (Urine sed) [#/Area] 1-3 /LPF Abnormal 0 /LPF [facility] Comment on above: Order Comment: Speci men Type: URINE SPECIMENOrdering Facility: [facility] Address: [address] [place] [address] Performed By: #### 2 4356-8 ####[facility] LABORATORYCLIA [id number] [address] Ketones Ql (U) Negative Normal Negative [facility] Comment on above: Order Comment: Speci men Type: URINE SPECIMENOrdering Facility: [facility] Address: [address] [place] [address] Performed By: #### 2 4356-8 ####[facility] LABORATORYCLIA [id number] [address] Leukocyte esterase Test strip Ql (U) 250 Ha/mL Abnormal Negative [facility] Comment on above: Order Comment: Speci men Type: URINE SPECIMENOrdering Facility: [facility] Address: [address] [place] [address] Performed By: #### 2 4356-8 ####[facility] LABORATORYCLIA [id number] [address] Nitrite Ql (U) 1+ Abnormal Negative [facility] Comment on above: Order Comment: Speci men Type: URINE SPECIMENOrdering Facility: [facility] Address: [address] [place] [address] Performed By: #### 2 4356-8 ####[facility] LABORATORYCLIA [id number] [address] pH (U) 6.0 [pH] Normal 5.0-8.0 [facility] Comment on above: Order Comment: Speci men Type: URINE SPECIMENOrdering Facility: [facility] Address: [address] [place] [address] Performed By: #### 2 4356-8 ####[facility] LABORATORYCLIA [id number] [address] Protein (U) [Mass/Vol] Negative Normal Negative [facility] Comment on above: Order Comment: Speci men Type: URINE SPECIMENOrdering Facility: [facility] Address: [address] [place] [address] Performed By: #### 2 4356-8 ####[facility] LABORATORYCLIA [id number] [address] [place] RBC LM.HPF (Urine sed) [#/Area] 0-3 /HPF Normal 0-3 /HPF [facility] Comment on above: Order Comment: Speci men Type: URINE SPECIMENOrdering Facility: [facility] Address: [address] [place] [address] Performed By: #### 2 4356-8 ####[facility] LABORATORYCLIA [id number] [address] STATES [facility] Specific gravity (U) [Rel density] 1.009 Normal 1.005-1.030 [facility] Comment on above: Order Comment: Speci men Type: URINE SPECIMENOrdering Facility: [facility] Address: [address] [place] [address] Performed By: #### 2 4356-8 ####[facility] LABORATORYCLIA [id number] [place] [address] [place] Urobilinogen Ql (U) 1+ Abnormal Negative [facility] Comment on above: Order Comment: Speci men Type: URINE SPECIMENOrdering Facility: [facility] Address: [address] [place] [address] Performed By: #### 2 4356-8 ####[facility] LABORATORYCLIA [id number] [address] STATES OF [facility] WBC LM.HPF (Urine sed) [#/Area] 6-10 /HPF Abnormal 0-5 /HPF [facility] Comment on above: Order Comment: Speci men Type: URINE SPECIMENOrdering Facility: [facility] Address: [address] [place] [address] Performed By: #### 2 4356-8 ####[facility] LABORATORYCLIA [id number] [address] [place] XR CHEST 1V FRONTALon 2021 XR CHEST 1V FRONTAL Normal [facility] CNPNon 08-21-2022 CNPN Normal [facility] CNPNon 08-17-2022 CNPN Normal [facility] CNPTOUTREACHon 08-17-2022 CNPTOUTREACH Normal [facility] CNOVon 2022 CNOV Normal [facility] KIMBERLY PATEL ([id number]) [address] [facility] Date Time Provider Department 08/02/22 VAL ENRIQUEZ [facility] During your visit today, we recorded the following information about you: Alexandro Qureshi RN 08/02/2022 12:03 PM Signed Patient calling in for ERFU appointment with Dr. Enriquez for her rash. Please call patient back. thanks Sneha Hager 08/02/2022 2:21 PM Signed Patient contacted. Dr Enriquez is not available until sep 05. Patient declined to schedule She will call the [facility] at [phone] Allergies As of Date: 08/02/2022 Noted Allergy Reaction DILAUDID (HYDROMORPHONE (BULK)) 05/30/2012 11 - Vomiting JARDIANCE (EMPAGLIFLOZIN) 11/07/2021 14 - Other: See Comments Comments: UTI METFORMIN 05/30/2012 6 - Diarrhea MORPHINE 05/30/2012 11 - Vomiting ONDANSETRON 02/14/2021 16 - Unknown PENICILLINS 05/30/2012 2 - Rash TRULICITY (DULAGLUTIDE) 11/07/2021 8 - GI Upset Comments: Nausea/Vomiting Date Reviewed: 08/02/2022 Reviewed by: Agustin Barahona APRN.MANAGER PHARMACY - Fully Assessed Reason for Visit: Appointment [...] tablets by mouth once daily. - Insulin [place], Disposable, (PEN NEEDLE) 31 gauge x 3/16 [...] - Lancing Device (LANCING DEVICE WITH LANCETS) [facility] Use as directed to check blood sugar [...] disease (or (more content not included)... Normal [facility] Lidia 07-06-2022 CNPN Telephone (PMSTOW) KIMBERLY PATEL ([id number]) [address] [facility] Date Time Provider Department 07/06/22 SUSAN CUELLO [...] you, Susan Cuello PharmD, BHAVIKCP Agustin Barahona APRN.MANAGER PHARMACY 07/07/2022 10:58 AM Signed Noted. Thank you for your exceptional care. 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 - Insulin [place], Disposable, (PEN NEEDLE) 31 gauge x 3/16 [...] ([place], [place]YCOL[place] (more content not included)... Normal [facility] KIMBERLY PATEL ([id number]) 1955 F Date Time Provider Department 06/29/22 FRANKIE DENG [facility] During your visit today, we recorded the following information about you: Domenica Olvera 06/29/2022 8:55 AM Signed Please call pt to verify if she will be continuing with [facility] or staying with her currently listed PCP and update chart accordingly. Domenica Denton Pss 06/30/2022 6:10 PM Signed Patient, , states she is cancelling [facility] Services and now has a new PCP as of 06/23/22. Modesta Denton Pss Nanette Garcia, PSS 11/30/2022 10:40 AM Signed Patient discharged from [facility]: Discharge Reason: Change - Doctor Change/left practice Discharge Date: 06/30/2022 Please cancel any pending orders-[facility] ,[facility], upcoming appointments with [facility] Allergies As of Date: 06/29/2022 Noted Allergy Reaction DILAUDID (HYDROMORPHONE (BULK)) 05/30/2012 11 - Vomiting JARDIANCE (EMPAGLIFLOZIN) 11/07/2021 14 - Other: See Comments Comments: UTI METFORMIN 05/30/2012 6 - Diarrhea MORPHINE 05/30/2012 11 - Vomiting ONDANSETRON 02/14/2021 16 - Unknown PENICILLINS 05/30/2012 2 - Rash TRULICITY (DULAGLUTIDE) 11/07/2021 8 - GI Upset Comments: Nausea/Vomiting Date Reviewed: 06/26/2022 Reviewed by: Agustin Barahona APRN.MANAGER PHARMACY - Fully Assessed Reason for Visit: Patient Update [1234] Cmt: Verify PCP cancelled [facility] [Other] Prescriptions as of 11/30/2022 - [...] by this patient by: PATIENT Chiquita Bedolla, [facility] 02/10/21 The medications are managed by this patient by: PATIENT Chiquita Bedolla, PharmD 12/03/20 The medications are managed by this patient by: PATIENT Da (more content not included)... Normal [facility] CBC W Auto Differential pane l (Bld)on 06-23-2022 Abs Immature Gran 0.10 k/uL High <0.10 k/uL [facility] Basophils (Bld) [#/Vol] 0.05 10*3/uL <0.11 k/uL [facility] Basophils/100 WBC (Bld) 0.6 % C [facility] Differential cell count method Nom (Bld) Auto [facility] Eosinophils (Bld) [#/Vol] 0.36 10*3/uL <0.46 k/uL [facility] Eosinophils/100 WBC (Bld) 4.3 % [facility] Erythrocyte distribution width (RBC) [Ratio] 13.4 % 11.5 - 15.0 % [facility] Hematocrit (Bld) [Volume fraction] 33.4 % Low 36.0 - 46.0 % [facility] Hemoglobin (Bld) [Mass/Vol] 10.0 g/dL Low 11.5 - 15.5 g/dL [facility] Immature Gran % 1.2 % [facility] Lymphocytes (Bld) [#/Vol] 1.22 10*3/uL 1.00 - 4.00 k/uL [facility] Lymphocytes/100 WBC (Bld) 14.7 % [facility] MCH (RBC) [Entitic mass] 28.1 pg 26.0 - 34.0 pg [facility] MCHC (RBC) [Mass/Vol] 29.9 g/dL Low 30.5 - 36.0 g/dL [facility] MCV (RBC) [Entitic vol] 93.8 fL 80.0 - 100.0 fL [facility] Monocytes (Bld) [#/Vol] 0.50 10*3/uL <0.87 k/uL [facility] Monocytes/100 WBC (Bld) 6.0 % C [facility] Neutrophils (Bld) [#/Vol] 6.09 10*3/uL 1.45 - 7.50 k/uL [facility] Neutrophils/100 WBC (Bld) 73.2 % [facility] Nucleated RBC (Bld) [#/Vol] <0.01 k/uL [facility] Nucleated RBC/100 WBC (Bld) [Ratio] 0.0 /100 WBC [facility] Platelet mean volume (Bld) [Entitic vol] 8.7 fL Low 9.0 - 12.7 fL [facility] Platelets (Bld) [#/Vol] 252 10*3/uL 150 - 400 k/uL [facility] RBC (Bld) [#/Vol] 3.56 10*6/uL Low 3.90 - 5.2 0 m/uL [facility] WBC (Bld) [#/Vol] 8.32 10*3/uL 3.70 - 11.00 k/uL [facility] Comprehensive metabolic 2000 panelon 06-23-2022 Albumin [Mass/Vol] 4.0 g/dL 3.9 - 4.9 g/dL [facility] ALP [Catalytic activity/Vol] 88 U/L 34 - 123 U/L [facility] ALT With P-5'-P [Catalytic activity/Vol] 9 U/L 7 - 38 U/L [facility] Anion gap [Moles/Vol] 10 mmol/L 9 - 18 mmol/L [facility] AST With P-5'-P [Catalytic activity/Vol] 12 U/L Low 13 - 35 U/L [facility] Bilirubin [Mass/Vol] 0.4 mg/dL 0.2 - 1 .3 mg/dL [facility] Calcium [Mass/Vol] 9.2 mg/dL 8.5 - 10. 2 mg/dL [facility] Chloride [Moles/Vol] 103 mmol/L 97 - 10 5 mmol/L [facility] CO2 [Moles/Vol] 29 mmol/L 22 - 30 mmol/L [facility] Creatinine [Mass/Vol] 1.31 mg/dL High 0.58 - 0.96 mg/dL [facility] Estimated Glomerular Filtration Rate 46 mL/min/1.73m Low >=60 mL/min/1.73 m [facility] Glucose [Mass/Vol] 200 mg/dL High 74 - 99 mg/dL [facility] Potassium [Moles/Vol] 4.5 mmol/L 3.7 - 5.1 mmol/L [facility] Protein [Mass/Vol] 6.4 g/dL 6.3 - 8.0 g/dL [facility] Sodium [Moles/Vol] 142 mmol/L 136 - 144 mmol/L [facility] Urea nitrogen [Mass/Vol] 21 mg/dL 7 - 21 mg/dL [facility] HEMOGLOBIN A1C (POC)on 06-23 HbA1c (Bld) [Mass fraction] 7.9 % Abnormal 4.2 - 5.6 % [facility] Lipid 1996 panelon Cholesterol [Mass/Vol] 153 mg/dL <200 mg/dL [facility] Cholesterol in HDL [Mass/Vol] 48 mg/dL >39 mg/dL [facility] Cholesterol in LDL [Mass/Vol] 68 mg/dL <100 mg/dL [facility] Cholesterol in LDL/Cholesterol in HDL [Mass ratio] 1.42 {ratio} <2.54 [facility] Cholesterol in VLDL [Mass/Vol] 37 mg/dL High <30 mg/dL [facility] Center Cholesterol non HDL [Mass/Vol] 105 mg/dL <130 mg/dL [facility] Cholesterol.total/Isatu sterol in HDL [Mass ratio] 3.19 {ratio} <5.10 [facility] Fasting Time 12 hrs [facility] Triglyceride [Mass/Vol] 187 mg/dL High <150 mg/dL C [facility] TSH BLDon 06-23-2022 TSH Qn 2.950 m[IU]/L 0.270 - 4.200 mIU/L [facility] CNPNon 05-08-2022 CNPN Telephone ([facility]) KIMBERLY PATEL ([id number]) [address] [facility] Date Time Provider Department 05/08/22 FRANKIE DENG [facility] During your visit today, we recorded the following information about you: Frankie Deng MD 05/08/2022 6:49 PM Signed Page by dtr. Pt DC'd from [facility] yesterday. Had sepsis and UTI. Furosemide held. [...] 05/10/2022 4:37 PM Signed Left message at [phone] requesting call back to confirm post hospital [...] Date Reviewed: 04/14/2022 Reviewed by: Susan Cuello [facility] - Fully Assessed Reason for Visit: Constipation [...] units subcutaneously in the PM - Insulin [place], Disposable, (PEN NEEDLE) 31 gauge x 3/16 [...] by this patient by: PATIENT Chiquita Bedolla, [facility] 02/10/21 The medications are managed by this patient (more content not included)... Normal [facility] CBC with Auto Differentialon 05-06-2022 Hematocrit (Bld) [Volume fraction] 28.0 % Low 35.0 - 47.0 % [facility] Work Phone: [phone] Hemoglobin (Bld) [Mass/Vol] 9.4 g/dL Low 11.7 - 16.0 g/dL [facility] Phone: [phone] Interpretation and review of laboratory results Abnormal [facility] Work Phone: [phone] MCH (RBC) [Entitic mass] 29.9 pg 26.0 - 34.0 pg [facility] Work Phone: [phone] MCHC (RBC) [Mass/Vol] 33.6 % 32.0 - 36.0 % [facility] Work Phone: [phone] MCV (RBC) [Entitic vol] 89.1 fL 79.0 - 98.0 fL [employer] Work Phone: [phone] Platelet distribution width (Bld) [Ratio] 13.5 % 11.5 - 14.5 % [facility] Phone: [phone] Platelet mean volume (Bld) [Entitic vol] 6.6 fL Low 7.4 - 12.4 fL [employer] Phone: [phone] Comment on above: MPV is a calculated measurement using platelet volume ratio. Platelets (Bld) [#/Vol] 171 10*3/uL 140 - 440 10*3/uL [facility] [employer] Work Phone: [phone] RBC (Bld) [#/Vol] 3.14 10*6/uL Low 3.80 - 5.2 0 10*6/uL [facility] Work Phone: [phone] WBC (Bld) [#/Vol] 9.2 10*3/uL 3.6 - 10.7 10*3/uL [facility] [employer] Work Phone: [phone] Performed by [facility], [address] [place], [place] [id number] [place] [address] LAB [facility] Work Phone: [phone] CULTURE BLOODon 05-06-2022 Microscopic examination of blood, culture CULTURE BLOOD --> Status: F No growth at 5 days. Normal [facility] Comment on above: Performed By: #### L ACTS #### [address] [place] [address] CULTURE BLOOD (Two)on 2021 Microscopic examination of blood, culture CULTURE BLOOD (Two) --> Status: F No growth at 5 days. [facility] Comment on above: Performed By: #### L ACTS #### [facility] [address] [place] [address] Comp Panel with Mg Reflexon 05-06-2022 ALP [Catalytic activity/Vol] 82 U/L Normal 38-126 [facility] Comment on above: Performed By: #### C ROMEO DEY MDIFF #### [facility] [address] [place] [address] #### PCAL #### [address] [address] ALT [Catalytic activity/Vol] 14 U/L Normal 0-34 [facility] Comment on above: Result Comment: The ALT test is performed by an updated assay method. Please note that the reference intervals have been changed and are now sex specific. Performed By: #### C DINA3ROMEO Rome, MDIFF #### [address] [address] #### PCAL #### [address], [place] Calcium [Mass/Vol] 8.8 mg/dL Normal 8.4-10.4 [facility] Comment on above: Performed By: #### ROMEO LOPEZ MDIFF #### [facility] [address] [place] [address] #### PCAL #### [place] [address] [address] [facility], [place] Glucose [Mass/Vol] 242 mg/dL High 70-100 [facility] Comment on above: Performed By: #### C ROMEO DEY MDIFF #### [place] [address] [place] [address] #### PCAL #### [place] [address] [address] [facility], [place] Urea nitrogen [Mass/Vol] 27 mg/dL High 9-20 [facility] Comment on above: Performed By: #### ROMEO LOPEZ MDIFF #### [place] [address] [place] [address] #### PCAL #### [place] [address] [address] [facility], [place] Anion gap [Moles/Vol] 3 mmol/L Normal 3-13 [facility] Comment on above: Performed By: #### ROMEO LOPEZ MDIFF #### [place] [address] [place] [address] #### PCAL #### [place] [address] [address] [facility], [place] AST [Catalytic activity/Vol] 18 U/L Normal 15-46 [facility] Comment on above: Performed By: #### ROMEO LOPEZ MDIFF #### [facility] [address] [place] [address] #### PCAL #### [place] [address] [address] [facility], [place] Bilirubin [Mass/Vol] 0.4 mg/dL Normal 0.2-1.3 [facility] Comment on above: Performed By: #### ROMEO LOPEZ MDIFF #### [facility] [address] [place] [address] #### PCAL #### [address] CO2 [Moles/Vol] 32 mmol/L High 22-30 [facility] [place] [facility] Comment on above: Performed By: #### C ROMEO DEY MDIFF #### [facility] [address] [place] [address] #### PCAL #### [place] [address] [place], [place] Creatinine [Mass/Vol] 1.48 mg/dL High 0.52-1.25 [facility] Comment on above: Performed By: #### C ROMEO DEY MDIFF #### [place] [address] [place] [address] #### PCAL #### [address] GFR/1.73 sq M.predicted among blacks MDRD (S/P/Bld) [Vol rate/Area] 42.7 mL/min/{1.73_m2} Abnormal >60 [facility] Comment on above: Performed By: #### C ROMEO DEY MDIFF #### [facility] [address] [place] [address] #### PCAL #### [address] GFR/1.73 sq M.predicted among non-blacks MDRD (S/P/Bld) [Vol rate/Area] 36.8 mL/min/{1.73_m2} Abnormal >60 [facility] Comment on above: Result Comment: KDIG [...] By: #### C ROMEO DEY MDIFF #### [facility] [address] [place] [address] #### PCAL #### [place] [address] [place] [address] Protein [Mass/Vol] 6.1 g/dL Low 6.3-8.2 [facility] Comment on above: Performed By: #### ROMEO LOPEZ MDIFF #### [address] [address] #### PCAL #### [address] [address] Chloride [Moles/Vol] 102 mmol/L Normal 98-107 [facility] Comment on above: Performed By: #### ROMEO LOPEZ MDIFF #### [address] [address] #### PCAL #### [address] [address] Potassium [Moles/Vol] 4.3 mmol/L Normal 3.5-5.1 [facility] Comment on above: Performed By: #### ROMEO LOPEZ MDIFF #### [place] [address] [place] [address] #### PCAL #### [address] [address] Sodium [Moles/Vol] 137 mmol/L Normal 135-145 [facility] Comment on above: Performed By: #### ROMEO LOPEZ MDIFF #### [place] [address] [place] [address] #### PCAL #### [place] [address] [place] [address] Albumin [Mass/Vol] 3.4 g/dL Low 3.5-5.0 [facility] Comment on above: Performed By: #### C ROMEO DEY MDIFF #### [employer] [address] [place] [address] #### PCAL #### [facility] [address] [place] [address] Comprehensive Metabolic Pane l w/ Reflex to MGon 05-06-2022 Albumin [Mass/Vol] 3.4 g/dL Low 3.5 - 5.0 g/dL [employer] Work Phone: [phone] ALP (Bld) [Catalytic activity/Vol] 82 U/L 38 - 126 U/L [employer] Work Phone: ALT [Catalytic activity/Vol] 14 U/L 0 - 34 U/L [employer] Work Phone: Comment on above: The ALT test is perf ormed by an updated assay method. Please note that the reference intervals have been changed and are now sex specific. Anion gap [Moles/Vol] 3 mmol/L 3 - 13 mmol/L [facility] [employer] Work Phone: [phone] [Catalytic activity/Vol] 18 U/L 15 - 46 U/L [facility] [employer] Work Phone: [phone] Bilirubin [Mass/Vol] 0.4 mg/dL 0.2 - 1 .3 mg/dL [facility] [employer] Work Phone: Calcium [Mass/Vol] 8.8 mg/dL 8.4 - 10. 4 mg/dL [facility] [employer] Work Phone: [phone] Chloride [Moles/Vol] 102 mmol/L 98 - 10 7 mmol/L [facility] Work Phone: [phone] CO2 [Moles/Vol] 32 mmol/L High 22 - 30 mmol/L [facility] Work Phone: [phone] Creatinine [Mass/Vol] 1.48 mg/dL High 0.52 - 1.25 mg/dL [facility] Work Phone: [phone] IF NonAfrican Dominican 36.8 mL/min Abnormal >60 [facility] Work Phone: [...] 6.1 g/dL Low 6.3 - 8.2 g/dL [facility] Work Phone: [phone] GFR/1.73 sq M.predicted among blacks MDRD (S/P/Bld) [Vol rate/Area] 42.7 mL/min/{1.73_m2} Abnormal >60 [facility] Work Phone: Glucose [Mass/Vol] 242 mg/dL High 70 - 100 mg/dL [facility] Work Phone: Interpretation and review of laboratory results Abnormal [facility] Work Phone: Potassium [Moles/Vol] 4.3 mmol/L 3.5 - 5.1 mmol/L [facility] Work Phone: [phone] Sodium [Moles/Vol] 137 mmol/L 135 - 145 mmol/L [facility] Work Phone: [phone] Urea nitrogen (BldV) [Mass/Vol] 27 mg/dL High 9 - 20 mg/dL [facility] Work Phone: Test Performed by [facility], [address] [place], [place] [address] [facility] Work Phone: Hemogram w/ Autodiffon 05-06 Erythrocyte distribution width (RBC) [Ratio] 13.5 % Normal 11.5-14.5 [facility] Comment on above: Performed By: #### ROMEO LOPEZ MDIFF #### [facility] [address] [place] [address] #### PCAL #### [address] Hematocrit (Bld) [Volume fraction] 28.0 % Low 35.0-47.0 [facility] Comment on above: Performed By: #### C ROMEO DEY MDIFF #### [facility] [address] [place] [address] #### PCAL #### [address] Hemoglobin (Bld) [Mass/Vol] 9.4 g/dL Low 11.7-16.0 [facility] Comment on above: Performed By: #### ROMEO LOPEZ MDIFF #### [place] [address] [place] [address] #### PCAL #### [address] MCH (RBC) [Entitic mass] 29.9 pg Normal 26.0-34.0 [facility] Comment on above: Performed By: #### ROMEO LOPEZ MDIFF #### [place] [address] [place] [address] #### PCAL #### [address] MCHC 33.6 % Normal 32.0-36.0 [facility] Comment on above: Performed By: #### ROMEO LOPEZ MDIFF #### [place] [address] [place] [address] #### PCAL #### [address] MCV (RBC) [Entitic vol] 89.1 fL Normal 79.0-98.0 [facility] Comment on above: Performed By: #### ROMEO LOPEZ MDIFF #### [place] [address] [place] [address] #### PCAL #### [address] [place], [place] Platelet mean volume (Bld) [Entitic vol] 6.6 fL Low 7.4-12.4 [facility] Comment on above: Result Comment: MPV is a calculated measurement using platelet volume ratio. Performed By: #### C ROMEO DEY MDIFF #### [place] [address] [place] [address] #### PCAL #### [address] Platelets (Bld) [#/Vol] 171 10*3/uL Normal 140-440 [facility] Comment on above: Performed By: #### C ROMEO DEY MDIFF #### [address] [facility] [place] [place] #### PCAL #### [address] RBC (Bld) [#/Vol] 3.14 10*6/uL Low 3.80-5.20 [facility] Comment on above: Performed By: #### C ROMEO DEY MDIFF #### [address] [place] #### PCAL #### [address] WBC (Bld) [#/Vol] 9.2 10*3/uL Normal 3.6-10.7 [facility] Comment on above: Performed By: #### C ROMEO DEY MDIFF #### [address] [place] [address] #### PCAL #### [address] Manual Diffon 05-06-2022 Abs Baso Cnt 0.1 10*3/uL Normal 0.0-0.2 [facility] Comment on above: Performed By: #### C ROMEO DEY, MDIFF #### [facility] [address] [place] [address] #### PCAL #### [place] [address] [address] [place], [place] Abs Eosin Cnt 0.2 10*3/uL Normal 0.0-0.5 [facility] Comment on above: Performed By: #### ROMEO LOPEZ MDIFF #### [facility] [address] [place] [address] #### PCAL #### [place] [address] [address] [place], [place] Abs Lymph Cnt 1.7 10*3/uL Normal 1.1-4.5 [facility] Comment on above: Performed By: #### C ROMEO DEY MDIFF #### [place] [address] [place] [address] #### PCAL #### [place] [address] [address] [place], [place] Abs Monocyte Cnt 0.6 10*3/uL Normal 0.2-1.1 [facility] Comment on above: Performed By: #### ROMEO LOPEZ MDIFF #### [place] [address] [place] [address] #### PCAL #### [address] Abs Neutrophile Cnt 6.2 10*3/uL Normal 2.2-8.2 [facility] Comment on above: Performed By: #### ROMEO LOPEZ MDIFF #### [place] [address] [place] [address] #### PCAL #### [address] Basophils 1 % Normal 0-2 [facility] Comment on above: Performed By: #### ROMEO LOPEZ MDIFF #### [place] [address] [place] [address] #### PCAL #### [place] [address] [place] [address] Eosinophils 2 % Normal 1-6 [facility] Comment on above: Performed By: #### C ROMEO DEY MDIFF #### [facility] [address] [place] [address] #### PCAL #### [facility] [address] [place] [address] Lymphocytes 19 % Low 20-40 [facility] Comment on above: Performed By: #### C ROMEO DEY MDIFF #### [facility] [address] [place] [address] #### PCAL #### [facility] [address] [place], [place] Metamyelocytes 2 % Abnormal <[address] [facility] Comment on above: Performed By: #### C ROMEO EDY MDIFF #### [facility] [address] [place] [address] #### PCAL #### [facility] [address] [place], [place] Monocytes 7 % Normal 2-10 [facility] Comment on above: Performed By: #### C ROMEO DEY MDIFF #### [facility] [address] [place] [address] #### PCAL #### [facility] [address] [facility], [place] Myelocytes 2 % Abnormal <1 [facility] Comment on above: Performed By: #### ROMEO LOPEZ MDIFF #### [facility] [address] [place] [address] #### PCAL #### [facility] [address] [place], [place] Ovalocytes Slight Normal [facility] Comment on above: Performed By: #### C ROMEO DEY MDIFF #### [facility] [address] [place] [address] #### PCAL #### [facility] [address] [place], [place] Poikilocytosis Slight Normal [facility] Comment on above: Performed By: #### C ROMEO DEY MDIFF #### [facility] [address] [place] [address] #### PCAL #### [facility] [address] [place], [place] Polychromasia Slight Normal [facility] Comment on above: Performed By: #### C ROMEO DEY MDIFF #### [facility] [address] [place] [address] #### PCAL #### [facility] [address] [place], [place] RBC Morphology ABNORMAL Normal [facility] Comment on above: Performed By: #### C ROMEO DEY MDIFF #### [facility] [address] [place] [address] #### PCAL #### [facility] [address]. [place], [place] Seg Neutrophils 67 % Normal 40-80 [facility] Comment on above: Performed By: #### C ROMEO DEY MDIFF #### [facility] [address] [place] [address] #### PCAL #### [facility] [address] [place], [place] Bands 0 % Normal 0-3 [facility] Comment on above: Performed By: #### ROMEO LOPEZ MDIFF #### [facility] [address] [place] [address] #### PCAL #### [facility] [address] [place], [place] Cells counted 100 Normal [facility] Comment on above: Performed By: #### ROMEO LOPEZ MDIFF #### [facility] [address] [place] [address] #### PCAL #### [facility] [address] [place], [place] Manual Differentialon 2021 Absolute Baso # 0.1 10*3/uL 0.0 - 0.2 10*3/uL [facility] Work Phone: [phone] Absolute Eos # 0.2 10*3/uL 0.0 - 0.5 10*3/uL [facility] Work Phone: [phone] 22 Absolute Lymph # 1.7 10*3/uL 1.1 - 4.5 10*3/uL [facility] Work Phone: [phone] 22 Absolute [place] # 0.6 10*3/uL 0.2 - 1.1 10*3/uL [...] Work Phone: [phone] 22 Test Performed by [facility], [address] [place], [place], [place] [id number] [place] [address] LAB [facility] Work Phone: [phone] No Panel Informationon 05-06 Blood Culture, Routine No growth at 5 days. [facility] Test Performed by [facility], [address] [place], [place] [id number] [place] [address] LAB [facility] CBC with Auto Differentialon 05-05-2022 Hematocrit (Bld) [Volume fraction] 29.7 % Low 35.0 - 47.0 % [facility] Work Phone: 1 Hemoglobin (Bld) [Mass/Vol] 9.8 g/dL Low 11.7 - 16.0 g/dL [facility] Work Phone: [phone] Interpretation and review of laboratory results Abnormal [facility] Work Phone: MCH (RBC) [Entitic mass] 29.6 pg 26.0 - 34.0 pg [facility] Work Phone: MCHC (RBC) [Mass/Vol] 33.2 % 32.0 - 36.0 % [facility] Work Phone: MCV (RBC) [Entitic vol] 89.2 fL 79.0 - 98.0 fL [facility] Work Phone: Platelet distribution width (Bld) [Ratio] 13.4 % 11.5 - 14.5 % [facility] Work Phone: Platelet mean volume (Bld) [Entitic vol] 6.9 fL Low 7.4 - 12.4 fL [facility] Work Phone: Comment on above: MPV is a calculated measurement using platelet volume ratio. Platelets (Bld) [#/Vol] 135 10*3/uL Low 140 - 440 10*3/uL [facility] Work Phone: RBC (Bld) [#/Vol] 3.32 10*6/uL Low 3.80 - 5.2 0 10*6/uL [facility] Work Phone: WBC (Bld) [#/Vol] 7.9 10*3/uL 3.6 - 10.7 10*3/uL [facility] Work Phone: Test Performed by [facility], [address], [place], [place] [address] [facility] Work Phone: Comp Panel with Mg Reflexon 05-05-2022 Calcium [Mass/Vol] 8.7 mg/dL Normal 8.4-10.4 [facility] Comment on above: Performed By: #### ROMEO LOPEZ MDIFF #### [facility] [address] [place] [address] #### PCAL #### [place] [address] [address] [place], [place] ALP [Catalytic activity/Vol] 77 U/L Normal 38-126 [facility] Comment on above: Performed By: #### ROMEO LOPEZ MDIFF #### [place] [address] [place] [address] #### PCAL #### [place] [address] [place], [place] ALT [Catalytic activity/Vol] 13 U/L Normal 0-34 [facility] Comment on above: Result Comment: The ALT test is performed by an updated assay method. Please note that the reference intervals have been changed and are now sex specific. Performed By: #### ROMEO LOPEZ MDIFF #### [facility] [address] [place] [address] #### PCAL #### [address] Anion gap [Moles/Vol] 4 mmol/L Normal 3-13 [facility] Comment on above: Performed By: #### ROMEO LOPEZ MDIFF #### [facility] [address] [place] [address] #### PCAL #### [address] AST [Catalytic activity/Vol] 16 U/L Normal 15-46 [facility] Comment on above: Performed By: #### ROMEO LOPEZ MDIFF #### [facility] [address] [place] [address] #### PCAL #### [address] [place] [address] Bilirubin [Mass/Vol] 0.4 mg/dL Normal 0.2-1.3 [facility] Comment on above: Performed By: #### ROMEO LOPEZ MDIFF #### [facility] [address] [place] [address] #### PCAL #### [facility] [address] [place] [address] CO2 [Moles/Vol] 31 mmol/L High 22-30 [facility] [place] [facility] Comment on above: Performed By: #### ROMEO LOPEZ MDIFF #### [facility] [address] [place] [address] #### PCAL #### [place] [address] [place] [address] Creatinine [Mass/Vol] 1.30 mg/dL High 0.52-1.25 [facility] Comment on above: Performed By: #### ROMEO LOPEZ MDIFF #### [facility] [address] [place] [address] #### PCAL #### [address] [place] [address] [place] [address] GFR/1.73 sq M.predicted among blacks MDRD (S/P/Bld) [Vol rate/Area] 50.0 mL/min/{1.73_m2} Abnormal >60 [facility] Comment on above: Performed By: #### ROMEO LOPEZ MDIFF #### [facility] [address] [place] [address] #### PCAL #### [address] [place] [address] [place] [address] GFR/1.73 sq M.predicted among non-blacks MDRD (S/P/Bld) [Vol rate/Area] 43.1 mL/min/{1.73_m2} Abnormal >60 [facility] Comment on above: Result Comment: KDIG [...] Performed By: #### ROMEO LOPEZ MDIFF #### [facility] [address] [place] [address] #### PCAL #### [address] [place] [address] [place], [place] Glucose [Mass/Vol] 245 mg/dL High 70-100 [facility] Comment on above: Performed By: #### ROMEO LOPEZ MDIFF #### [facility] [address] [place] [address] #### PCAL #### [place] [address] [place], [place] Protein [Mass/Vol] 6.3 g/dL Normal 6.3-8.2 [facility] Comment on above: Performed By: #### ROMEO LOPEZ MDIFF #### [facility] [address] [place] [address] #### PCAL #### [place] [address] [place] Urea nitrogen [Mass/Vol] 26 mg/dL High 9-20 [facility] Comment on above: Performed By: #### ROMEO LOPEZ MDIFF #### [facility] [address] [place] [address] #### PCAL #### [place] [address] [place], [place] Potassium [Moles/Vol] 4.6 mmol/L Normal 3.5-5.1 [facility] Comment on above: Performed By: #### ROMEO LOPEZ MDIFF #### [facility] [address] [place] [address] #### PCAL #### [address] [place] [place] [address] Albumin [Mass/Vol] 3.5 g/dL Normal 3.5-5.0 [facility] Comment on above: Performed By: #### ROMEO LOPEZ MDIFF #### [facility] [address] [place] [address] #### PCAL #### [address] [place] [address] [place] [address] Chloride [Moles/Vol] 104 mmol/L Normal 98-107 [facility] Comment on above: Performed By: #### ROMEO LOPEZ MDIFF #### [facility] [address] [place] [address] #### PCAL #### [address] [place] [address] Sodium [Moles/Vol] 139 mmol/L Normal 135-145 [facility] Comment on above: Performed By: #### ROMEO LOPEZ MDIFF #### [facility] [address] [place] [address] #### PCAL #### [address] [place] [address] Comprehensive Metabolic Pane l w/ Reflex to MGon 05-05-2022 Albumin [Mass/Vol] 3.5 g/dL 3.5 - 5.0 g/dL [facility] Work Phone: ALP (Bld) [Catalytic activity/Vol] 77 U/L 38 - 126 U/L [facility] Work Phone: ALT [Catalytic activity/Vol] 13 U/L 0 - 34 U/L [facility] Work Phone: Comment on above: The ALT test is perf ormed by an updated assay method. Please note that the reference intervals have been changed and are now sex specific. Anion gap [Moles/Vol] 4 mmol/L 3 - 13 mmol/L [facility] Work Phone: [phone] AST [Catalytic activity/Vol] 16 U/L 15 - 46 U/L [facility] Work Phone: [phone] Bilirubin [Mass/Vol] 0.4 mg/dL 0.2 - 1 .3 mg/dL [facility] Work Phone: [phone] Calcium [Mass/Vol] 8.7 mg/dL 8.4 - 10. 4 mg/dL [facility] Work Phone: [phone] Chloride [Moles/Vol] 104 mmol/L 98 - 10 7 mmol/L [facility] Work Phone: [phone] CO2 [Moles/Vol] 31 mmol/L High 22 - 30 mmol/L [facility] Work Phone: [phone] Creatinine [Mass/Vol] 1.3 mg/dL High 0.52 - 1.25 mg/dL [facility] Work Phone: [phone] EGFR IF NonAfrican Dominican 43.1 mL/min Abnormal >60 [facility] Work Phone: [phone] Comment on above: KDIGO guidelines pro vide [...] fraction] 6.3 g/dL 6.3 - 8.2 g/dL [facility] Work Phone: [phone] GFR/1.73 sq M.predicted among blacks MDRD (S/P/Bld) [Vol rate/Area] 50.0 mL/min/{1.73_m2} Abnormal >60 [facility] Work Phone: [phone] Glucose [Mass/Vol] 245 mg/dL High 70 - 100 mg/dL [facility] Work Phone: [phone] Interpretation and review of laboratory results Abnormal [facility] Work Phone: [phone] Potassium [Moles/Vol] 4.6 mmol/L 3.5 - 5.1 mmol/L [facility] Work Phone: [phone] Sodium [Moles/Vol] 139 mmol/L 135 - 145 mmol/L [facility] Work Phone: [phone] Urea nitrogen (BldV) [Mass/Vol] 26 mg/dL High 9 - 20 mg/dL [facility] Work Phone: [phone] Test Performed by [facility], [address] [place], [place] [address] [facility] Work Phone: [phone] Hemogram w/ Autodiffon 05-05 Erythrocyte distribution width (RBC) [Ratio] 13.4 % Normal 11.5-14.5 [facility] Comment on above: Performed By: #### C ROMEO DEY MDIFF #### [facility] [address] [place] [address] #### PCAL #### [address] Hematocrit (Bld) [Volume fraction] 29.7 % Low 35.0-47.0 [facility] Comment on above: Performed By: #### ROMEO LOPEZ MDIFF #### [address] [place] [address] #### PCAL #### [address] [address] Hemoglobin (Bld) [Mass/Vol] 9.8 g/dL Low 11.7-16.0 [facility] Comment on above: Performed By: #### ROMEO LOPEZ MDIFF #### [address] [place] [address] #### PCAL #### [address] MCH (RBC) [Entitic mass] 29.6 pg Normal 26.0-34.0 [facility] Comment on above: Performed By: #### C ROMEO DEY MDIFF #### [facility] [address] [place] [address] #### PCAL #### [address] [address] [place] MCHC 33.2 % Normal 32.0-36.0 [facility] Comment on above: Performed By: #### C ROMEO DEY MDIFF #### [facility] [address] [place] [address] #### PCAL #### [address] MCV (RBC) [Entitic vol] 89.2 fL Normal 79.0-98.0 [facility] Comment on above: Performed By: #### C ROMEO DEY MDIFF #### [facility] [address] [place] [address] #### PCAL #### [address] Platelet mean volume (Bld) [Entitic vol] 6.9 fL Low 7.4-12.4 [facility] Comment on above: Result Comment: MPV is a calculated measurement using platelet volume ratio. Performed By: #### C ROMEO DEY MDIFF #### [address] [place] [address] #### PCAL #### [address] Platelets (Bld) [#/Vol] 135 10*3/uL Low 140-440 [facility] Comment on above: Performed By: #### C ROMEO DEY MDIFF #### [facility] [address] [place] [address] #### PCAL #### [address] RBC (Bld) [#/Vol] 3.32 10*6/uL Low 3.80-5.20 [facility] Comment on above: Performed By: #### ROMEO LOPEZ MDIFF #### [facility] [address] [place] [address] #### PCAL #### [address] WBC (Bld) [#/Vol] 7.9 10*3/uL Normal 3.6-10.7 [facility] Comment on above: Performed By: #### ROMEO LOPEZ MDIFF #### [address] [place] [address] #### PCAL #### [address] Manual Diffon 05-05-2022 Abs Eosin Cnt 0.2 10*3/uL Normal 0.0-0.5 [facility] Comment on above: Performed By: #### ROMEO LOPEZ MDIFF #### [address] [place] #### PCAL #### [address] Abs Lymph Cnt 1.6 10*3/uL Normal 1.1-4.5 [facility] Comment on above: Performed By: #### ROMEO LOPEZ MDIFF #### [address] [place] [address] #### PCAL #### [address] [place], [place] Abs Monocyte Cnt 0.6 10*3/uL Normal 0.2-1.1 [facility] Comment on above: Performed By: #### ROMEO LOPEZ MDIFF #### [address] [place] [address] #### PCAL #### [address] Abs Neutrophile Cnt 5.1 10*3/uL Normal 2.2-8.2 [facility] Comment on above: Performed By: #### C ROMEO DEY MDIFF #### [facility] [address] [place] [address] #### PCAL #### [facility] [address] [place] [address] Eosinophils 3 % Normal 1-6 [facility] Comment on above: Performed By: #### C ROMEO DEY MDIFF #### [facility] [address] [place] [address] #### PCAL #### [facility] [address] [place] [address] Lymphocytes 20 % Normal 20-40 [facility] Comment on above: Performed By: #### C ROMEO DEY MDIFF #### [facility] [address] [place] [address] #### PCAL #### [facility] [place] [address] Metamyelocytes 2 % Abnormal <1 [facility] Comment on above: Performed By: #### C ROMEO DEY MDIFF #### [facility] [address] [place] [address] #### PCAL #### [facility] [address] [place] [address] Monocytes 7 % Normal 2-10 [facility] Comment on above: Performed By: #### C ROMEO DEY MDIFF #### [facility] [address] [place] [address] #### PCAL #### [facility] [address] [place] [address] Myelocytes 3 % Abnormal <1 [facility] Comment on above: Performed By: #### C ROMEO DEY MDIFF #### [facility] [address] [place] [address] #### PCAL #### [facility] [address] [place] [address] Ovalocytes Slight Normal [facility] Comment on above: Performed By: #### C ROMEO DEY MDIFF #### [facility] [address] [place] [address] #### PCAL #### [address] [place] Poikilocytosis Slight Normal [facility] Comment on above: Performed By: #### C ROMEO DEY MDIFF #### [facility] [address] [place] [address] #### PCAL #### [address] [place] Polychromasia Slight Normal [facility] Comment on above: Performed By: #### C ROMEO DEY MDIFF #### [address] [place] [address] #### PCAL #### [address] [place] RBC Morphology ABNORMAL Normal [facility] Comment on above: Performed By: #### C ROMEO DEY MDIFF #### [address] [place] [address] #### PCAL #### [address] [place] Seg Neutrophils 65 % Normal 40-80 [facility] Comment on above: Performed By: #### C ROMEO DEY MDIFF #### [address] [place] [address] #### PCAL #### [address] [place] Abs Baso Cnt 0.0 10*3/uL Normal 0.0-0.2 [facility] Comment on above: Performed By: #### C ROMEO DEY MDIFF #### [facility] [address] [place] [address] #### PCAL #### [address] [place] Bands 0 % Normal 0-3 [facility] Comment on above: Performed By: #### C ROMEO DEY MDIFF #### [facility] [address] [place] [address] #### PCAL #### [facility] [address] [place] [address] Basophils 0 % Normal 0-2 [facility] Comment on above: Performed By: #### C MP3MROMEO, MDIFF #### [facility] [address] [place] [address] #### PCAL #### [facility] [address] [place] [address] Cells counted 100 Normal [facility] Comment on above: Performed By: #### C MP3M, ROMEO, MDIFF #### [facility] [address] [place] [address] #### PCAL #### [facility] [address] [place] [address] Manual Differentialon 2021 Absolute Baso # 0.0 10*3/uL 0.0 - 0.2 10*3/uL [facility] Work Phone: [phone] Absolute Eos # 0.2 10*3/uL 0.0 - 0.5 10*3/uL [facility] Work Phone: 22 Absolute Lymph # 1.6 10*3/uL 1.1 - 4.5 10*3/uL [facility] Work Phone: 22 Absolute [place]inson # 0.6 10*3/uL 0.2 - 1.1 10*3/uL [...] 1 22 Metamyelocytes 2 % Abnormal <1 [facility] Work Phone: [phone] Monocytes/100 WBC (Bld) 7 % 2 - 10 % S [facility] Work Phone: [phone] Myelocytes 3 % Abnormal <1 [facility] Work Phone: 1 22 Ovalocytes Slight [facility] Work Phone: 1 22 Poikilocytes Slight [facility] Work Phone: 1 [phone] Polychromasia Slight [facility] Work Phone: 1 RBC (Bld) [#/Vol] ABNORMAL [facility] Work Phone: 1 Seg Neutrophils 65 % 40 - 80 % [facility] Work Phone: TOTAL CELLS COUNTED 100 [facility] Work Phone: 1 Test Performed by [facility], [address] [place] [id number] [place] [address] LAB [facility] Work Phone: CBC with Auto Differentialon 05-04-2022 Hematocrit (Bld) [Volume fraction] 27.5 % Low 35.0 - 47.0 % [facility] Work Phone: Hemoglobin (Bld) [Mass/Vol] 9.2 g/dL Low 11.7 - 16.0 g/dL [facility] Work Phone: [phone] Interpretation and review of laboratory results Abnormal [facility] Work Phone: 1 MCH (RBC) [Entitic mass] 30.2 pg 26.0 - 34.0 pg [facility] Work Phone: MCHC (RBC) [Mass/Vol] 33.6 % 32.0 - 36.0 % [facility] Work Phone: 1 MCV (RBC) [Entitic vol] 89.8 fL 79.0 - 98.0 fL [facility] Work Phone: Platelet distribution width (Bld) [Ratio] 13.6 % 11.5 - 14.5 % [facility] Work Phone: Platelet mean volume (Bld) [Entitic vol] 7.6 fL 7.4 - 12.4 fL [facility] Work Phone: [phone] Comment on above: MPV is a calculated measurement using platelet volume ratio. Platelets (Bld) [#/Vol] 90 10*3/uL Low 140 - 440 10*3/uL [facility] Work Phone: [phone] RBC (Bld) [#/Vol] 3.06 10*6/uL Low 3.80 - 5.2 0 10*6/uL [facility] Work Phone: [phone] WBC (Bld) [#/Vol] 6.1 10*3/uL 3.6 - 10.7 10*3/uL [facility] Work Phone: [phone] Test Performed by [facility], [address] [place] [address] [facility] Work Phone: [phone] Comp Panel with Mg Reflexon 05-04-2022 ALP [Catalytic activity/Vol] 71 U/L Normal 38-126 [facility] Comment on above: Performed By: #### C ROMEO DEY MDIFF #### [facility] [address] [place] [address] #### PCAL #### [address] [address] ALT [Catalytic activity/Vol] 11 U/L Normal 0-34 [facility] Comment on above: Result Comment: The ALT test is performed by an updated assay method. Please note that the reference intervals have been changed and are now sex specific. Performed By: #### C ROMEO DEY MDIFF #### [facility] [address] [place] [address] #### PCAL #### [address] [address] Calcium [Mass/Vol] 8.4 mg/dL Normal 8.4-10.4 [facility] Comment on above: Performed By: #### C DINA3ROMEO Rome MDIFF #### [facility] [address] [place] [address] #### PCAL #### [address], [place] Glucose [Mass/Vol] 268 mg/dL High 70-100 [facility] Comment on above: Performed By: #### ROMEO LOPEZ MDIFF #### [facility] [address] [place] [address] #### PCAL #### [address] [facility], [place] Urea nitrogen [Mass/Vol] 30 mg/dL High 9-20 [facility] Comment on above: Performed By: #### C ROMEO DEY MDIFF #### [address] [place] [address] #### PCAL #### [address] [facility], [place] Anion gap [Moles/Vol] 5 mmol/L Normal 3-13 [facility] Comment on above: Performed By: #### ROMEO LOPEZ MDIFF #### [address] [place] [address] #### PCAL #### [address] [facility], [place] AST [Catalytic activity/Vol] 14 U/L Low 15-46 [facility] Comment on above: Performed By: #### ROMEO LOPEZ MDIFF #### [address] [place] [address] #### PCAL #### [address] [facility], [place] Bilirubin [Mass/Vol] 0.3 mg/dL Normal 0.2-1.[address] [facility] Comment on above: Performed By: #### ROMEO LOPEZ MDIFF #### [facility] [address] [place] [address] #### PCAL #### [address] [facility], [place] CO2 [Moles/Vol] 28 mmol/L Normal 22-30 [facility] Comment on above: Performed By: #### ROMEO LOPEZ MDIFF #### [facility] [address] [place] [address] #### PCAL #### [address] [address] Creatinine [Mass/Vol] 1.20 mg/dL Normal 0.52-1.25 [facility] Comment on above: Performed By: #### C ROMEO DEY MDIFF #### [facility] [address] [place] [address] #### PCAL #### [address] [address] GFR/1.73 sq M.predicted among blacks MDRD (S/P/Bld) [Vol rate/Area] 55.0 mL/min/{1.73_m2} Abnormal >60 [facility] Comment on above: Performed By: #### C ROMEO DEY MDIFF #### [facility] [address] [place] [address] #### PCAL #### [address] [address] GFR/1.73 sq M.predicted among non-blacks MDRD (S/P/Bld) [Vol rate/Area] 47.5 mL/min/{1.73_m2} Abnormal >60 [facility] Comment on above: Result Comment: KDIG [...] By: #### C ROMEO DEY MDIFF #### [facility] [address] [place] [address] #### PCAL #### [facility] [address] [place] [address] Protein [Mass/Vol] 5.8 g/dL Low 6.3-8.2 [facility] Comment on above: Performed By: #### C ROMEO DEY MDIFF #### [facility] [address] [place] [address] #### PCAL #### [address] [place] [address] Potassium [Moles/Vol] 4.7 mmol/L Normal 3.5-5.1 [facility] Comment on above: Performed By: #### C ROMEO DEY MDIFF #### [facility] [address] [place] [address] #### PCAL #### [address] [place] [address] Sodium [Moles/Vol] 137 mmol/L Normal 135-145 [facility] Comment on above: Performed By: #### C ROMEO DEY MDIFF #### [facility] [address] [place] [address] #### PCAL #### [address] [place] [address] Albumin [Mass/Vol] 3.1 g/dL Low 3.5-5.0 [facility] Comment on above: Performed By: #### C ROMEO DEY MDIFF #### [facility] [address] [place] [address] #### PCAL #### [address] [place] [address] Chloride [Moles/Vol] 104 mmol/L Normal 98-107 [facility] Comment on above: Performed By: #### C ROMEO DEY MDIFF #### [facility] [address] [place] [address] #### PCAL #### [facility] [address] [place] [address] Comprehensive Metabolic Pane l w/ Reflex to MGon 05-04-2022 Albumin [Mass/Vol] 3.1 g/dL Low 3.5 - 5.0 g/dL [facility] Work Phone: [phone] ALP (Bld) [Catalytic activity/Vol] 71 U/L 38 - 126 U/L [facility] Work Phone: [phone] ALT [Catalytic activity/Vol] 11 U/L 0 - 34 U/L [facility] Work Phone: [phone] Comment on above: The ALT test is perf ormed by an updated assay method. Please note that the reference intervals have been changed and are now sex specific. Anion gap [Moles/Vol] 5 mmol/L 3 - 13 mmol/L [facility] Work Phone: [phone] AST [Catalytic activity/Vol] 14 U/L Low 15 - 46 U/L [facility] Work Phone: [phone] Bilirubin [Mass/Vol] 0.3 mg/dL 0.2 - 1 .3 mg/dL [facility] Work Phone: [phone] Calcium [Mass/Vol] 8.4 mg/dL 8.4 - 10. 4 mg/dL [facility] Work Phone: [phone] Chloride [Moles/Vol] 104 mmol/L 98 - 10 7 mmol/L [facility] Work Phone: [phone] CO2 [Moles/Vol] 28 mmol/L 22 - 30 mmol/L [facility] Work Phone: [phone] Creatinine [Mass/Vol] 1.2 mg/dL 0.52 - 1.25 mg/dL [facility] Work Phone: [phone] EGFR IF NonAfrican Dominican 47.5 mL/min Abnormal >60 [facility] Work Phone: Comment on above: KDIGO guidelines [...] 5.8 g/dL Low 6.3 - 8.2 g/dL [facility] Work Phone: [phone] GFR/1.73 sq M.predicted among blacks MDRD (S/P/Bld) [Vol rate/Area] 55.0 mL/min/{1.73_m2} Abnormal >60 [facility] Work Phone: [phone] Glucose [Mass/Vol] 268 mg/dL High 70 - 100 mg/dL [facility] Work Phone: [phone] Interpretation and review of laboratory results Abnormal [facility] Work Phone: [phone] Potassium [Moles/Vol] 4.7 mmol/L 3.5 - 5.1 mmol/L [facility] Work Phone: [phone] Sodium [Moles/Vol] 137 mmol/L 135 - 145 mmol/L [facility] Work Phone: [phone] Urea nitrogen (BldV) [Mass/Vol] 30 mg/dL High 9 - 20 mg/dL [facility] Work Phone: [phone] Test Performed by [facility], [address] [place], [place] [address] [facility] Work Phone: Hemogram w/ Autodiffon 05-04 Erythrocyte distribution width (RBC) [Ratio] 13.6 % Normal 11.5-14.5 [facility] Comment on above: Performed By: #### C ROMEO DEY MDIFF #### [facility] [address] [place] [address] #### PCAL #### [facility] [address] [place] [address] Hematocrit (Bld) [Volume fraction] 27.5 % Low 35.0-47.0 [facility] Comment on above: Performed By: #### C ROMEO DEY MDIFF #### [facility] [address] [place] [address] #### PCAL #### [address] [address] [place], [place] Hemoglobin (Bld) [Mass/Vol] 9.2 g/dL Low 11.7-16.0 [facility] Comment on above: Performed By: #### C ROMEO DEY MDIFF #### [address] [place] [address] #### PCAL #### [address] MCH (RBC) [Entitic mass] 30.2 pg Normal 26.0-34.0 [facility] Comment on above: Performed By: #### C ROMEO DEY MDIFF #### [address] [place] [address] #### PCAL #### [address] [address] [place], [place] MCHC 33.6 % Normal 32.0-36.0 [facility] Comment on above: Performed By: #### C ROMEO DEY MDIFF #### [address] [place] [address] #### PCAL #### [address] MCV (RBC) [Entitic vol] 89.8 fL Normal 79.0-98.0 [facility] Comment on above: Performed By: #### C ROMEO DEY MDIFF #### [address] [place] [address] #### PCAL #### [address] Platelet mean volume (Bld) [Entitic vol] 7.6 fL Normal 7.4-12.4 [facility] Comment on above: Result Comment: MPV is a calculated measurement using platelet volume ratio. Performed By: #### ROMEO LOPEZ MDIFF #### [facility] [address] [place] [address] #### PCAL #### [address] [place], [place] Platelets (Bld) [#/Vol] 90 10*3/uL Low 140-440 [facility] Comment on above: Performed By: #### C ROMEO DEY MDIFF #### [facility] [address] [place] #### PCAL #### [address] RBC (Bld) [#/Vol] 3.06 10*6/uL Low 3.80-5.20 [facility] Comment on above: Performed By: #### ROMEO LOPEZ MDIFF #### [address] [place] [address] [place] #### PCAL #### [address] WBC (Bld) [#/Vol] 6.1 10*3/uL Normal 3.6-10.7 [facility] Comment on above: Performed By: #### ROMEO LOPEZ MDIFF #### [address] [place] [address] #### PCAL #### [address] Manual Diffon 05-04-2022 Abs Baso Cnt 0.1 10*3/uL Normal 0.0-0.2 [facility] Comment on above: Performed By: #### ROMEO LOPEZ MDIFF #### [facility] [address] [place] [address] #### PCAL #### [address] Abs Eosin Cnt 0.4 10*3/uL Normal 0.0-0.5 [facility] Comment on above: Performed By: #### C ROMEO DEY, MDIFF #### [facility] [address] [place] [address] #### PCAL #### [address] [place], [place] Abs Lymph Cnt 1.8 10*3/uL Normal 1.1-4.5 [facility] Comment on above: Performed By: #### C ROMEO DEY MDIFF #### [facility] [address] [place] [address] #### PCAL #### [address] [place], [place] Abs Monocyte Cnt 0.2 10*3/uL Normal 0.2-1.1 [facility] Comment on above: Performed By: #### C ROMEO DEY MDIFF #### [address] [place], [place] #### PCAL #### [address] [place], [place] Abs Neutrophile Cnt 3.4 10*3/uL Normal 2.2-8.2 [facility] Comment on above: Performed By: #### ROMEO LOPEZ MDIFF #### [facility] [address] [place] [address] #### PCAL #### [address] [place], [place] Anisocytosis Slight Normal [facility] Comment on above: Performed By: #### ROMEO LOPEZ MDIFF #### [facility] [address] [place] [address] #### PCAL #### [address] Basophils 2 % Normal 0-2 [facility] Comment on above: Performed By: #### ROMEO LOPEZ MDIFF #### [facility] [address] [place] [address] #### PCAL #### [address] [place], [place] James Cells Slight Normal [facility] Comment on above: Performed By: #### C ROMEO DEY MDIFF #### [facility] [address] [place] [address] #### PCAL #### [facility] [address] [place] [address] Eosinophils 7 % High 1-6 [facility] Comment on above: Performed By: #### C ROMEO DEY MDIFF #### [facility] [address] [place] [address] #### PCAL #### [facility] [address] [place] [address] Hypochromia Slight Normal [facility] Comment on above: Performed By: #### C ROMEO DEY MDIFF #### [facility] [address] [place] [address] #### PCAL #### [facility] [address] [place], [place] Lymphocytes 30 % Normal 20-40 [facility] Comment on above: Performed By: #### C ROMEO DEY MDIFF #### [facility] [address] [place] [address] #### PCAL #### [facility] [address] [place], [place] Metamyelocytes 1 % Abnormal <1 [facility] Comment on above: Performed By: #### C ROMEO DEY MDIFF #### [facility] [address] [place] [address] #### PCAL #### [facility] [address] [place] [address] Monocytes 3 % Normal 2-10 [facility] Comment on above: Performed By: #### C ROMEO DEY MDIFF #### [facility] [address] [place] [address] #### PCAL #### [facility] [address] [place], [place] Myelocytes 2 % Abnormal <1 [facility] Comment on above: Performed By: #### C ROMEO DEY MDIFF #### [facility] [address] [place] [address] #### PCAL #### [facility] [address] [place], [place] Ovalocytes Slight Normal [facility] Comment on above: Performed By: #### C ROMEO DEY MDIFF #### [facility] [address] [place] [address] #### PCAL #### [place] [address] [place], [place] Poikilocytosis Slight Normal [facility] Comment on above: Performed By: #### C ROMEO DEY MDIFF #### [facility] [address] [place] [address] #### PCAL #### [place] [address] [address] [place], [place] Polychromasia Slight Normal [facility] Comment on above: Performed By: #### C ROMEO DEY MDIFF #### [facility] [address] [place] [address] #### PCAL #### [place] [address] [address] [place], [place] RBC Morphology ABNORMAL Normal [facility] Comment on above: Performed By: #### C ROMEO DEY MDIFF #### [facility] [address] [place] [address] #### PCAL #### [place] [address] [address] [place], [place] Seg Neutrophils 55 % Normal 40-80 [facility] Comment on above: Performed By: #### C ROMEO DEY MDIFF #### [facility] [address] [place] [address] #### PCAL #### [place] [address] [address] [place], [place] Bands 0 % Normal 0-3 [facility] Comment on above: Performed By: #### C ROMEO DEY MDIFF #### [facility] [address] [place] [address] #### PCAL #### [facility] [address] [place] [address] Cells counted 100 Normal [facility] Comment on above: Performed By: #### C MP3Travis, HEMELLEN, MDIFF #### [facility] [address] [place] [address] #### PCAL #### [facility] [address] [place] [address] Manual Differentialon 2021 Absolute Baso # 0.1 10*3/uL 0.0 - 0.2 10*3/uL [facility] Work Phone: [phone] Absolute Eos # 0.4 10*3/uL 0.0 - 0.5 10*3/uL [facility] Work Phone: [phone] Absolute Lymph # 1.8 10*3/uL 1.1 - 4.5 10*3/uL [facility] Work Phone: [phone] Absolute Hutchinson # 0.2 10*3/uL 0.2 - 1.1 10*3/uL [facility] Work Phone: [phone] Absolute Neut # 3.4 10*3/uL 2.2 - 8.2 10*3/uL [facility] Work Phone: [phone] Anisocytosis Slight [facility] Work Phone: [phone] Bands 0 % 0 - 3 % [facility] Work Phone: [phone] Basophils/100 WBC (Bld) 2 % 0 - 2 % S [facility] Work Phone: [phone] [place] Cells Slight [facility] Work Phone: [phone] [...] [facility] Work Phone: 1 Test Performed by [employer], [address], [place] [id number] [place] [address] LAB [facility] Work Phone: [phone] Procalcitoninon 05-04-2022 Procalcitonin 6.49 ng/mL High 0.00-0.09 [facility] [employer] [facility] Comment on above: Performed By: #### L ACTS #### [facility] [address] [place] [address] Interpretation See Below [facility] Work Phone: Comment on above: PCT <0.50 = Low risk of severe sepsis and/or septic shock. PCT >2.00 = High risk of severe sepsis and/or septic shock. Interpretation and review of laboratory results Abnormal [facility] Work Phone: [phone] Procalcitonin 6.49 ng/mL High 0.00 - 0.09 ng/mL [facility] Work Phone: 1 Test Performed by [facility], [address] [place] [address] [facility] Work Phone: 1 CBC with [...] 1 S Amoxicillin/Clavulanic Acid(ASHU) <= 2 S Ampicillin/Sulbactam(IL C) <= 2 S Pip/Tazobactam(ASHU) <= 4 S Meropenem(ASHU) <= 0.25 S Ciprofloxacin(ASHU) <= 0.25 S Trimeth/Sulfa(ASHU) >= 320 R Nitrofurantoin(ASHU) <= 16 S Gentamicin(ASHU) <= 1 S Amikacin(ASHU) <= 2 S Normal [facility] Comment on above: Performed By: #### L ACTS #### [facility] [address] [place] [address] Comp Panel with Mg Reflexon 05-03-2022 Calcium [Mass/Vol] 8.1 mg/dL Low 8.4-10.4 [facility] Comment on above: Performed By: #### L ACTS #### [facility] [address] [place] [address] ALP [Catalytic activity/Vol] 78 U/L Normal 38-126 [facility] Comment on above: Performed By: #### L ACTS #### [facility] [address] [place] [address] ALT [Catalytic activity/Vol] 12 U/L Normal 0-34 [facility] Comment on above: Result Comment: The ALT test is performed by an updated assay method. Please note that the reference intervals have been changed and are now sex specific. Performed By: #### L ACTS #### [facility] [address] [place] [address] Anion gap [Moles/Vol] 3 mmol/L Normal 3-13 [facility] Comment on above: Performed By: #### L ACTS #### [facility] [address] [place] [address] AST [Catalytic activity/Vol] 15 U/L Normal 15-46 [facility] Comment on above: Performed By: #### L ACTS #### [facility] [address] [place] [address] Bilirubin [Mass/Vol] 0.3 mg/dL Normal 0.2-1.3 [facility] Comment on above: Performed By: #### L ACTS #### [facility] [address] [place] [address] CO2 [Moles/Vol] 30 mmol/L Normal 22-30 [facility] Comment on above: Performed By: #### L ACTS #### [facility] [address] [place] [address] Creatinine [Mass/Vol] 1.51 mg/dL High 0.52-1.25 [facility] Comment on above: Performed By: #### L ACTS #### [facility] [address] [place] [address] GFR/1.73 sq M.predicted among blacks MDRD (S/P/Bld) [Vol rate/Area] 41.7 mL/min/{1.73_m2} Abnormal >60 [facility] Comment on above: Performed By: #### L ACTS #### [facility] [address] [place] [address] GFR/1.73 sq M.predicted among non-blacks MDRD (S/P/Bld) [Vol rate/Area] 36.0 mL/min/{1.73_m2} Abnormal >60 [facility] Comment on above: Result Comment: KDIG [...] secretion. Performed By: #### L ACTS #### [facility] [address] [place] [address] Glucose [Mass/Vol] 255 mg/dL High 70-100 [facility] Comment on above: Performed By: #### L ACTS #### [facility] [address] [place] [address] Protein [Mass/Vol] 5.7 g/dL Low 6.3-8.2 [facility] Comment on above: Performed By: #### L ACTS #### [facility] [address] [place] [address] Urea nitrogen [Mass/Vol] 33 mg/dL High 9-20 [facility] Comment on above: Performed By: #### L ACTS #### [facility] [address] [place] [address] Potassium [Moles/Vol] 4.5 mmol/L Normal 3.5-5.1 [facility] Comment on above: Performed By: #### L ACTS #### [facility] [address] [place] [address] Albumin [Mass/Vol] 3.2 g/dL Low 3.5-5.0 [facility] Comment on above: Performed By: #### L ACTS #### [facility] [address] [place] [address] Chloride [Moles/Vol] 103 mmol/L Normal 98-107 [facility] Comment on above: Performed By: #### L ACTS #### [facility] [address] [place] [place] [address] Sodium [Moles/Vol] 136 mmol/L Normal 135-145 [facility] Comment on above: Performed By: #### L ACTS #### [facility] [address] [place] [address] Comprehensive Metabolic Pane l w/ Reflex to MGon 05-03-2022 Albumin [Mass/Vol] 3.2 g/dL Low 3.5 - 5.0 g/dL [facility] Work Phone: [phone] ALP (Bld) [Catalytic activity/Vol] 78 U/L 38 - 126 U/L [facility] Work Phone: [phone] ALT [Catalytic activity/Vol] 12 U/L 0 - 34 U/L [facility] Work Phone: [phone] Comment on above: The ALT test is perf ormed by an updated assay method. Please note that the reference intervals have been changed and are now sex specific. Anion gap [Moles/Vol] 3 mmol/L 3 - 13 mmol/L Daily [facility] Work Phone: [phone] AST [Catalytic activity/Vol] 15 U/L 15 - 46 U/L Daily [facility] Work Phone: [phone] Bilirubin [Mass/Vol] 0.3 mg/dL 0.2 - 1 .3 mg/dL Daily [facility] Work Phone: [phone] Calcium [Mass/Vol] 8.1 mg/dL Low 8.4 - 10. 4 mg/dL [facility] Work Phone: [phone] Chloride [Moles/Vol] 103 mmol/L 98 - 10 7 mmol/L [facility] Work Phone: [phone] CO2 [Moles/Vol] 30 mmol/L 22 - 30 mmol/L [facility] Work Phone: [phone] Creatinine [Mass/Vol] 1.51 mg/dL High 0.52 - 1.25 mg/dL [facility] Work Phone: [phone] EGFR IF NonAfrican Dominican 36.0 mL/min Abnormal >60 [facility] Work Phone: Comment on above: KDIGO guidelines [...] 5.7 g/dL Low 6.3 - 8.2 g/dL [facility] Work Phone: [phone] GFR/1.73 sq M.predicted among blacks MDRD (S/P/Bld) [Vol rate/Area] 41.7 mL/min/{1.73_m2} Abnormal >60 [facility] Work Phone: Glucose [Mass/Vol] 255 mg/dL High 70 - 100 mg/dL [facility] Work Phone: Interpretation and review of laboratory results Abnormal [facility] Work Phone: Potassium [Moles/Vol] 4.5 mmol/L 3.5 - 5.1 mmol/L [facility] Work Phone: Sodium [Moles/Vol] 136 mmol/L 135 - 145 mmol/L [facility] Work Phone: Urea nitrogen (BldV) [Mass/Vol] 33 mg/dL High 9 - 20 mg/dL [facility] Work Phone: Test Performed by [facility], [address] [place], [place] [address] [facility] Work Phone: Culture, Urineon 05-03-2022 Bacteria identified Cx Nom (U) Normal urogenital krys present. Abnormal [facility] Bacteria identified Cx Nom (U) Escherichia coli Abnormal [facility] Bacteria identified Cx Nom (U) >100,000 CFU/ml [facility] Interpretation and review of laboratory results Abnormal [facility] Test Performed by [facility], [address] [place] [id number] [place] [address] LAB [facility] Glucose,Bedsideon 05-03-2022 Glucose [Mass/Vol] 332 mg/dL High 70-100 [facility] Comment on above: Result Comment: Test performed by glucose meter. Results may be 10%-15% lower than serum/plasma values. (CLIA ID [id number]) Performed By: #### C ROMEO DEY MDIFF #### [facility] [address] [place] [address] #### PCAL #### [address] [address] Glucose [Mass/Vol] 273 mg/dL High 70-100 [facility] Comment on above: Result Comment: Test performed by glucose meter. Results may be 10%-15% lower than serum/plasma values. (CLIA ID [id number]) Performed By: #### L ACTS #### [facility] [address] [place] [address] Glucose [Mass/Vol] 256 mg/dL High 70-100 [facility] Comment on above: Result Comment: Test performed by glucose meter. Results may be 10%-15% lower than serum/plasma values. (CLIA ID [id number]) Performed By: #### C ROMEO DEY MDIFF #### [facility] [address] [place] [address] #### PCAL #### [address] [address] Hemogram w/ Autodiffon 05-03 Erythrocyte distribution width (RBC) [Ratio] 13.8 % Normal 11.5-14.5 [facility] Comment on above: Performed By: #### L ACTS #### [facility] [address] [place] [address] Hematocrit (Bld) [Volume fraction] 25.6 % Low 35.0-47.0 [facility] Work Phone: [phone] Comment on above: Performed By: #### L ACTS #### [facility] [address] [place] [address] Hemoglobin (Bld) [Mass/Vol] 8.5 g/dL Low 11.7-16.0 [facility] Work Phone: [phone] Comment on above: Performed By: #### L ACTS #### [facility] [address] [place] [address] MCH (RBC) [Entitic mass] 29.7 pg Normal 26.0-34.0 [facility] Work Phone: [phone] Comment on above: Performed By: #### L ACTS #### [facility] [address] [place] [address] MCHC 33.2 % Normal 32.0-36.0 [facility] Comment on above: Performed By: #### L ACTS #### [facility] [address] [place] [address] MCV (RBC) [Entitic vol] 89.5 fL Normal 79.0-98.0 [facility] Work Phone: [phone] Comment on above: Performed By: #### L ACTS #### [facility] [address] [place] [address] Platelet mean volume (Bld) [Entitic vol] 7.1 fL Low 7.4-12.4 [facility] Work Phone: Comment on above: MPV is a calculated measurement using platelet volume ratio. Result Comment: MPV is a calculated measurement using platelet volume ratio. Performed By: #### L ACTS #### [facility] [address] [place] [address] Platelets (Bld) [#/Vol] 80 10*3/uL Low 140-440 [facility] Work Phone: Comment on above: Performed By: #### L ACTS #### [facility] [address] [place] [address] RBC (Bld) [#/Vol] 2.86 10*6/uL Low 3.80-5.20 [facility] Work Phone: [phone] Comment on above: Performed By: #### L ACTS #### [facility] [address] [place] [address] WBC (Bld) [#/Vol] 6.3 10*3/uL Normal 3.6-10.7 [facility] Work Phone: Comment on above: Performed By: #### L ACTS #### [facility] [address] [place] [address] Manual Diffon 05-03-2022 Abs Eosin Cnt 0.3 10*3/uL Normal 0.0-0.5 [facility] Comment on above: Performed By: #### L ACTS #### [facility] [address] [place] [address] Abs Lymph Cnt 0.8 10*3/uL Low 1.1-4.5 [facility] Comment on above: Performed By: #### L ACTS #### [facility] [address] [place] [address] Abs Monocyte Cnt 0.3 10*3/uL Normal 0.2-1.1 [facility] Comment on above: Performed By: #### L ACTS #### [facility] [address] [place] [address] Abs Neutrophile Cnt 4.7 10*3/uL Normal 2.2-8.2 [facility] Comment on above: Performed By: #### L ACTS #### [facility] [address] [place] [address] Anisocytosis Slight Normal [facility] Comment on above: Performed By: #### L ACTS #### [facility] [address] [place] [address] Eosinophils 5 % Normal 1-6 [facility] Comment on above: Performed By: #### L ACTS #### [facility] [address] [place] [address] Lymphocytes 13 % Low 20-40 [facility] Comment on above: Performed By: #### L ACTS #### [facility] [address] [place] [address] Metamyelocytes 1 % Abnormal <1 [facility] Comment on above: Performed By: #### L ACTS #### [facility] [address] [place] [address] Monocytes 5 % Normal 2-10 [facility] Comment on above: Performed By: #### L ACTS #### [facility] [address] [place] [address] Myelocytes 1 % Abnormal <1 [facility] Comment on above: Performed By: #### L ACTS #### [facility] [address] [place] [address] Ovalocytes Slight Normal [facility] Comment on above: Performed By: #### L ACTS #### [facility] [address] [place] [address] Poikilocytosis Slight Normal [facility] Comment on above: Performed By: #### L ACTS #### [facility] [address] [place] [address] Polychromasia Slight Normal [facility] Comment on above: Performed By: #### L ACTS #### [facility] [address] [place] [address] RBC Morphology ABNORMAL Normal [facility] Comment on above: Performed By: #### L ACTS #### [facility] [address] [place] [address] Seg Neutrophils 75 % Normal 40-80 [facility] [place] [facility] Comment on above: Performed By: #### L ACTS #### [facility] [address] [place] [address] Abs Baso Cnt 0.0 10*3/uL Normal 0.0-0.2 [facility] Comment on above: Performed By: #### L ACTS #### [facility] [address] [place] [address] Bands 0 % Normal 0-3 [facility] Comment on above: Performed By: #### L ACTS #### [facility] [address] [place] [address] Basophils 0 % Normal 0-2 [facility] Comment on above: Performed By: #### L ACTS #### [facility] [address] [place] [address] Cells counted 100 Normal [facility] Comment on above: Performed By: #### L ACTS #### [facility] [address] [place] [address] Manual Differentialon 2021 Absolute Baso # 0.0 10*3/uL 0.0 - 0.2 10*3/uL [facility] Work Phone: [phone] Absolute Eos # 0.3 10*3/uL 0.0 - 0.5 10*3/uL [facility] Work Phone: [phone] Absolute Lymph # 0.8 10*3/uL Low 1.1 - 4.5 10*3/uL [facility] Work Phone: [phone] Absolute Hutchinson # 0.3 10*3/uL 0.2 - 1.1 10*3/uL [...] Work Phone: [phone] Test Performed by [facility], [address] LAB [facility] Work Phone: [phone] Panel Informationon 05-03 Interpretation and review of laboratory results Abnormal [facility] Work Phone: [phone] Test Performed by [facility], [address] LAB [facility] Work Phone: [phone] POCT Glucoseon 05-03-2022 Glucose [Mass/Vol] 332 mg/dL High 70 - 100 mg/dL [facility] Work Phone: [phone] Comment on above: Test performed by gl ucose meter. Results may be 10%-15% lower than serum/plasma values. (CLIA ID [id number]) Test Performed by [facility], [address] LAB Glucose [Mass/Vol] 256 mg/dL High 70 - 100 mg/dL [facility] Work Phone: [phone] Comment on above: Test performed by gl ucose meter. Results may be 10%-15% lower than serum/plasma values. (CLIA ID [id number]) Interpretation and review of laboratory results Abnormal [facility] Work Phone: [phone] Test Performed by [facility], [address] LAB [facility] Work Phone: [phone] POCT GlucoseOrdered By: Nelson Beckham on 05-03-2022 Glucose [Mass/Vol] 273 mg/dL High 70 - 100 mg/dL [facility] Work Phone: [phone] Comment on above: Test performed by gl ucose meter. Results may be 10%-15% lower than serum/plasma values. (CLIA ID [id number]) Interpretation and review of laboratory results Abnormal [facility] Work Phone: [phone] [facility] Work Phone: [phone] Procalcitoninon 05-03-2022 Procalcitonin 12.30 ng/mL High 0.00-0.09 [facility] Comment on above: Performed By: #### L ACTS #### [facility] [address] [place] [address] Interpretation See Below Normal [facility] Work Phone: [phone] Comment on above: PCT <0.50 = Low risk of severe sepsis and/or septic shock. PCT >2.00 = High risk of severe sepsis and/or septic shock. Result Comment: PCT <0.50 = Low risk of severe sepsis and/or septic shock. PCT >2.00 = High risk of severe sepsis and/or septic shock. Performed By: #### L ACTS #### [address] [place] [address] Interpretation and review of laboratory results Abnormal [facility] Work Phone: [phone] Procalcitonin 12.3 ng/mL High 0.00 - 0.09 ng/mL [facility] Work Phone: [phone] Test Performed by [facility], [address] [place] [address] [facility] Work Phone: [phone] Vancomycin Troughon 05-03-20 Vancomycin Trough 9.9 ug/mL Low 15.0-20.0 [facility] Comment on above: Result Comment: . Performed By: #### C ROMEO DEY MDIFF #### [address] [place] [address] #### PCAL #### [address] [address] CBC with Auto Differentialon 05-02-2022 Hematocrit (Bld) [Volume fraction] 26.8 % Low 35.0 - 47.0 % [facility] Work Phone: [phone] Hemoglobin (Bld) [Mass/Vol] 8.9 g/dL Low 11.7 - 16.0 g/dL [facility] Work Phone: [phone] Interpretation and review of laboratory results Abnormal [facility] Work Phone: MCH (RBC) [Entitic mass] 29.8 pg 26.0 - 34.0 pg [facility] Work Phone: 1 MCHC (RBC) [Mass/Vol] 33.1 % 32.0 - 36.0 % [facility] Work Phone: 1 MCV (RBC) [Entitic vol] 90.0 fL 79.0 - 98.0 fL [facility] Work Phone: 1 Platelet distribution width (Bld) [Ratio] 13.9 % 11.5 - 14.5 % [facility] Work Phone: Platelet mean volume (Bld) [Entitic vol] 7.4 fL 7.4 - 12.4 fL [facility] Work Phone: 1 Comment on above: MPV is a calculated measurement using platelet volume ratio. Platelets (Bld) [#/Vol] 71 10*3/uL Low 140 - 440 10*3/uL [facility] Work Phone: 1 RBC (Bld) [#/Vol] 2.97 10*6/uL Low 3.80 - 5.2 0 10*6/uL [facility] Work Phone: 1 WBC (Bld) [#/Vol] 7.5 10*3/uL 3.6 - 10.7 10*3/uL [facility] Work Phone: 1 Test Performed by [facility], [address] [place], [place] [address] [facility] Work Phone: Comp Panel with Mg Reflexon 05-02-2022 ALP [Catalytic activity/Vol] 70 U/L Normal 38-126 [facility] Comment on above: Performed By: #### L ACTS #### [facility] [address] [place] [address] ALT [Catalytic activity/Vol] 11 U/L Normal 0-34 [facility] Comment on above: Result Comment: The ALT test is performed by an updated assay method. Please note that the reference intervals have been changed and are now sex specific. Performed By: #### L ACTS #### [facility] [address] [place] [address] Calcium [Mass/Vol] 7.9 mg/dL Low 8.4-10.4 [facility] Comment on above: Performed By: #### L ACTS #### [facility] [address] [place] [address] Glucose [Mass/Vol] 233 mg/dL High 70-100 [facility] Comment on above: Performed By: #### L ACTS #### [facility] [address] [place] [address] Protein [Mass/Vol] 5.8 g/dL Low 6.3-8.2 [facility] Comment on above: Performed By: #### L ACTS #### [facility] [address] [place] [address] Urea nitrogen [Mass/Vol] 43 mg/dL High 9-20 [facility] Comment on above: Performed By: #### L ACTS #### [facility] [address] [place] [address] Anion gap [Moles/Vol] 4 mmol/L Normal 3-13 [facility] Comment on above: Performed By: #### L ACTS #### [facility] [address] [place] [address] AST [Catalytic activity/Vol] 16 U/L Normal 15-46 [facility] Comment on above: Performed By: #### L ACTS #### [facility] [address] [place] [address] Bilirubin [Mass/Vol] 0.4 mg/dL Normal 0.2-1.3 [facility] Comment on above: Performed By: #### L ACTS #### [facility] [address] [place] [address] CO2 [Moles/Vol] 30 mmol/L Normal 22-30 [facility] Comment on above: Performed By: #### L ACTS #### [facility] [address] [place] [address] Creatinine [Mass/Vol] 1.39 mg/dL High 0.52-1.25 [facility] Comment on above: Performed By: #### L ACTS #### [facility] [address] [place] [address] GFR/1.73 sq M.predicted among blacks MDRD (S/P/Bld) [Vol rate/Area] 46.1 mL/min/{1.73_m2} Abnormal >60 [facility] Comment on above: Performed By: #### L ACTS #### [facility] [address] [place] [address] GFR/1.73 sq M.predicted among non-blacks MDRD (S/P/Bld) [Vol rate/Area] 39.8 mL/min/{1.73_m2} Abnormal >60 [facility] Comment on above: Result Comment: KDIG [...] secretion. Performed By: #### L ACTS #### [facility] [address] [place] [address] Chloride [Moles/Vol] 104 mmol/L Normal 98-107 [facility] Comment on above: Performed By: #### L ACTS #### [facility] [address] [place] [address] Potassium [Moles/Vol] 4.3 mmol/L Normal 3.5-5.1 [facility] Comment on above: Performed By: #### L ACTS #### [facility] [address] [place] [address] Sodium [Moles/Vol] 138 mmol/L Normal 135-145 [facility] Comment on above: Performed By: #### L ACTS #### [facility] [address] [place] [address] Albumin [Mass/Vol] 3.2 g/dL Low 3.5-5.0 [facility] Comment on above: Performed By: #### L ACTS #### [facility] [address] [place] [address] Comprehensive Metabolic Pane l w/ Reflex to MGon 05-02-2022 Albumin [Mass/Vol] 3.2 g/dL Low 3.5 - 5.0 g/dL [employer] Work Phone: [phone] ALP (Bld) [Catalytic activity/Vol] 70 U/L 38 - 126 U/L [employer] Work Phone: [phone] ALT [Catalytic activity/Vol] 11 U/L 0 - 34 U/L [facility] Work Phone: [phone] Comment on above: The ALT test is perf ormed by an updated assay method. Please note that the reference intervals have been changed and are now sex specific. Anion gap [Moles/Vol] 4 mmol/L 3 - 13 mmol/L [employer] Work Phone: [phone] [Catalytic activity/Vol] 16 U/L 15 - 46 U/L [employer] Work Phone: [phone] Bilirubin [Mass/Vol] 0.4 mg/dL 0.2 - 1 .3 mg/dL [employer] Work Phone: [phone] Calcium [Mass/Vol] 7.9 mg/dL Low 8.4 - 10. 4 mg/dL [employer] Work Phone: [phone] Chloride [Moles/Vol] 104 mmol/L 98 - 10 7 mmol/L [employer] Work Phone: [phone] CO2 [Moles/Vol] 30 mmol/L 22 - 30 mmol/L [employer] Work Phone: [phone] Creatinine [Mass/Vol] 1.39 mg/dL High 0.52 - 1.25 mg/dL [employer] Work Phone: [phone] EGFR IF NonAfrican Dominican 39.8 mL/min Abnormal >60 [employer] Work Phone: [phone] Comment on above: KDIGO guidelines pro vide [...] 5.8 g/dL Low 6.3 - 8.2 g/dL [facility] Work Phone: GFR/1.73 sq M.predicted among blacks MDRD (S/P/Bld) [Vol rate/Area] 46.1 mL/min/{1.73_m2} Abnormal >60 [facility] Work Phone: Glucose [Mass/Vol] 233 mg/dL High 70 - 100 mg/dL [facility] Work Phone: Interpretation and review of laboratory results Abnormal [facility] Work Phone: Potassium [Moles/Vol] 4.3 mmol/L 3.5 - 5.1 mmol/L [facility] Work Phone: Sodium [Moles/Vol] 138 mmol/L 135 - 145 mmol/L [facility] Work Phone: Urea nitrogen (BldV) [Mass/Vol] 43 mg/dL High 9 - 20 mg/dL [facility] Work Phone: Test Performed by [facility], [address], [place] [address] [facility] Work Phone: Glucose,Bedsideon 05-02-2022 Glucose [Mass/Vol] 239 mg/dL High 70-100 [facility] Comment on above: Result Comment: Test performed by glucose meter. Results may be 10%-15% lower than serum/plasma values. (CLIA ID [id number]) Performed By: #### B GLU #### [facility] [address] [place] [address] Glucose [Mass/Vol] 126 mg/dL High 70-100 [facility] Comment on above: Result Comment: Test performed by glucose meter. Results may be 10%-15% lower than serum/plasma values. (CLIA ID [id number]) Performed By: #### C MP3M, HEMDF, MDIFF #### [facility] [address] [place] [address] #### PCAL #### [facility] [address] [address] Glucose [Mass/Vol] 268 mg/dL High 70-100 [facility] Comment on above: Result Comment: Test performed by glucose meter. Results may be 10%-15% lower than serum/plasma values. (CLIA ID [id number]) Performed By: #### C MP3M, HEMDF, MDIFF #### [facility] [address] [place] [address] #### PCAL #### [facility] [address] [address] Glucose [Mass/Vol] 245 mg/dL High 70-100 [facility] Comment on above: Result Comment: Test performed by glucose meter. Results may be 10%-15% lower than serum/plasma values. (CLIA ID [id number]) Performed By: #### C MP3M, HEMDF, MDIFF #### [facility] [address] [place] [address] #### PCAL #### [facility] [address] [address] Glucose [Mass/Vol] 213 mg/dL High 70-100 [facility] Comment on above: Result Comment: Test performed by glucose meter. Results may be 10%-15% lower than serum/plasma values. (CLIA ID [id number]) Performed By: #### L ACTS #### [facility] [address] [place] [address] Hemogram w/ Autodiffon 05-02 Erythrocyte distribution width (RBC) [Ratio] 13.9 % Normal 11.5-14.5 [facility] Comment on above: Performed By: #### L ACTS #### [facility] [address] [place] [address] Hematocrit (Bld) [Volume fraction] 26.8 % Low 35.0-47.0 [facility] Comment on above: Performed By: #### L ACTS #### [facility] [address] [place] [address] Hemoglobin (Bld) [Mass/Vol] 8.9 g/dL Low 11.7-16.0 [facility] Comment on above: Performed By: #### L ACTS #### [facility] [address] [place] [address] MCH (RBC) [Entitic mass] 29.8 pg Normal 26.0-34.0 [facility] Comment on above: Performed By: #### L ACTS #### [facility] [address] [place] [address] MCHC 33.1 % Normal 32.0-36.0 [facility] Comment on above: Performed By: #### L ACTS #### [facility] [address] [place] [address] MCV (RBC) [Entitic vol] 90.0 fL Normal 79.0-98.0 [facility] Comment on above: Performed By: #### L ACTS #### [facility] [address] [place] [address] Platelet mean volume (Bld) [Entitic vol] 7.4 fL Normal 7.4-12.4 [facility] Comment on above: Result Comment: MPV is a calculated measurement using platelet volume ratio. Performed By: #### L ACTS #### [facility] [address] [place] [address] Platelets (Bld) [#/Vol] 71 10*3/uL Low 140-440 [facility] Comment on above: Performed By: #### L ACTS #### [facility] [address] [place] [address] RBC (Bld) [#/Vol] 2.97 10*6/uL Low 3.80-5.20 [facility] Comment on above: Performed By: #### L ACTS #### [facility] [address] [place] [address] WBC (Bld) [#/Vol] 7.5 10*3/uL Normal 3.6-10.7 [facility] Comment on above: Performed By: #### L ACTS #### [facility] [address] [place] [address] Manual Diffon 05-02-2022 Abs Baso Cnt 0.1 10*3/uL Normal 0.0-0.2 [facility] Comment on above: Performed By: #### L ACTS #### [facility] [address] [place] [address] Abs Eosin Cnt 0.4 10*3/uL Normal 0.0-0.5 [facility] Comment on above: Performed By: #### L ACTS #### [facility] [address] [place] [address] Abs Lymph Cnt 0.9 10*3/uL Low 1.1-4.5 [facility] Comment on above: Performed By: #### L ACTS #### [facility] [address] [place] [address] Abs Monocyte Cnt 0.3 10*3/uL Normal 0.2-1.1 [facility] Comment on above: Performed By: #### L ACTS #### [facility] [address] [place] [address] Abs Neutrophile Cnt 5.8 10*3/uL Normal 2.2-8.2 [facility] Comment on above: Performed By: #### L ACTS #### [facility] [address] [place] [address] Anisocytosis Slight Normal [facility] Comment on above: Performed By: #### L ACTS #### [facility] [address] [place] [address] Bands 0 % Normal 0-3 [facility] Comment on above: Performed By: #### L ACTS #### [facility] [address] [place] [address] Basophillic Stippling Slight Normal [facility] Comment on above: Performed By: #### L ACTS #### [facility] [address] [place] [address] Basophils 1 % Normal 0-2 [facility] Comment on above: Performed By: #### L ACTS #### [facility] [address] [place] [address] Cells counted 100 Normal [facility] Comment on above: Performed By: #### L ACTS #### [facility] [address] [place] [address] Eosinophils 5 % Normal 1-6 [facility] Comment on above: Performed By: #### L ACTS #### [facility] [address] [place] [address] Hypochromia Slight Normal [facility] Comment on above: Performed By: #### L ACTS #### [facility] [address] [place] [address] Lymphocytes 12 % Low 20-40 [facility] Comment on above: Performed By: #### L ACTS #### [facility] [address] [place] [address] Metamyelocytes 1 % Abnormal <1 [facility] Comment on above: Performed By: #### L ACTS #### [facility] [address] [place] [address] Monocytes 4 % Normal 2-10 [facility] Comment on above: Performed By: #### L ACTS #### [facility] [address] [place] [address] Ovalocytes Slight Normal [facility] Comment on above: Performed By: #### L ACTS #### [facility] [address] [place] [address] Poikilocytosis Slight Normal [facility] Comment on above: Performed By: #### L ACTS #### [facility] [address] [place] [address] Polychromasia Slight Normal [facility] Comment on above: Performed By: #### L ACTS #### [facility] [address] [place] [address] RBC Morphology ABNORMAL Normal [facility] Comment on above: Performed By: #### L ACTS #### [facility] [address] [place] [address] Seg Neutrophils 77 % Normal 40-80 [facility] [place] [facility] Comment on above: Performed By: #### L ACTS #### [facility] [address] [place] [address] Tear Drop Forms Slight Normal [facility] [place] [facility] Comment on above: Performed By: #### L ACTS #### [facility] [address] [place] [address] Manual Differentialon 2021 Absolute Baso # 0.1 10*3/uL 0.0 - 0.2 10*3/uL [facility] Work Phone: [phone] Absolute Eos # 0.4 10*3/uL 0.0 - 0.5 10*3/uL [facility] Work Phone: [phone] 22 Absolute Lymph # 0.9 10*3/uL Low 1.1 - 4.5 10*3/uL [facility] Work Phone: [phone] Absolute Hutchinson # 0.3 10*3/uL 0.2 - 1.1 10*3/uL [...] [facility] Work Phone: 1 Test Performed by [facility], [address] LAB [facility] Work Phone: 1 POCT Glucoseon 05-02-2022 Glucose [Mass/Vol] 239 mg/dL High 70 - 100 mg/dL [facility] Work Phone: 1 Comment on above: Test performed by gl ucose meter. Results may be 10%-15% lower than serum/plasma values. (CLIA ID [id number]) Interpretation and review of laboratory results Abnormal [facility] Work Phone: 1 Test Performed by [facility], [address] LAB [facility] Work Phone: 1 Glucose [Mass/Vol] 126 mg/dL High 70 - 100 mg/dL [facility] Work Phone: 1 Comment on above: Test performed by gl ucose meter. Results may be 10%-15% lower than serum/plasma values. (CLIA ID [id number]) Interpretation and review of laboratory results Abnormal [facility] Work Phone: [phone] Test Performed by [facility], [address] LAB [facility] Work Phone: 1 Glucose [Mass/Vol] 268 mg/dL High 70 - 100 mg/dL [facility] Work Phone: 1 Comment on above: Test performed by gl ucose meter. Results may be 10%-15% lower than serum/plasma values. (CLIA ID [id number]) Interpretation and review of laboratory results Abnormal [facility] Work Phone: Test Performed by [facility], [address] LAB [facility] Work Phone: Test Performed by [facility], [address] LAB Glucose [Mass/Vol] 213 mg/dL High 70 - 100 mg/dL [facility] Work Phone: Comment on above: Test performed by gl ucose meter. Results may be 10%-15% lower than serum/plasma values. (CLIA ID [id number]) Interpretation and review of laboratory results Abnormal [facility] Work Phone: Test Performed by [facility], [address] LAB [facility] Work Phone: POCT GlucoseOrdered By: Angie Love on 05-02-2022 Glucose [Mass/Vol] 245 mg/dL High 70 - 100 mg/dL [facility] Work Phone: Comment on above: Test performed by gl ucose meter. Results may be 10%-15% lower than serum/plasma values. (CLIA ID [id number]) Interpretation and review of laboratory results Abnormal [facility] Work Phone: [facility] Work Phone: Procalcitoninon 05-02-2022 Interpretation See Below Normal [facility] Comment on above: Result Comment: PCT <0.50 = Low risk of severe sepsis and/or septic shock. PCT >2.00 = High risk of severe sepsis and/or septic shock. Performed By: #### L ACTS #### [facility] [address] [place] [address] US RETROPERITONEAL COMPLETEo n 05-02-2022 Patient Name: KIMBERLY PATEL Ultrasound ACCESSION EXAM DATE/TIME PROCEDURE ORDERING PROVIDER [id number] 05/02/2022 10:21 EDT US Retroperitoneal [id number] JONES Complete CPT code 63606 Reason For Exam (US Retroperitoneal Complete) darrell [...] JASON Transcribed Date and Time: 05/02/2022 12:35 [facility] Edwin Vaz MD - 05/02/2022 Patient Name: KIMBERLY PATEL Ultrasound ACCESSION EXAM DATE/TIME PROCEDURE ORDERING PROVIDER [id number] 05/02/2022 10:21 EDT US Retroperitoneal Moon ELKINS HEMA Complete CPT code 03639 Reason For Exam (US Retroperitoneal Complete) darrell [...] COMPLETEO rdered By: Edwin Vaz on 05-02-2022 [facility] Work Phone: US Retroperitoneal Completeo n 05-02-2022 US Retroperitoneal Complete Patient Name: KIMBERLY PATEL Ultrasound ACCESSION EXAM DATE/TIME PROCEDURE ORDERING PROVIDER [id number] 05/02/2022 10:21 EDT US Retroperitoneal [id number] -MACK HEMA Complete CPT code 48008 Reason For Exam (US Retroperitoneal Complete) darrell [...] Transcribed Date and Time: 05/02/2022 12:35 Normal [facility] Vancomycin Level, Troughon 0 05-02-2022 Interpretation and review of laboratory results Abnormal [facility] Vancomycin Tr 9.9 ug/mL Low 15.0 - 20.0 ug/mL [facility] Comment on above: . Test Performed by [facility], [address], [place], [place] [id number] [place] [address] LAB [facility] CBC with Auto Differentialon 05-01-2022 Absolute Baso # 0.0 10*3/uL 0.0 - 0.2 10*3/uL [facility] Work Phone: [phone] 22 Absolute Neut # 12.3 10*3/uL High 1.8 - 7.0 10*3/uL [facility] Work Phone: 22 Basophils/100 WBC (Bld) 0.1 % 0.0 - 2.0 % [facility] Work Phone: 22 Eosinophils (Bld) [#/Vol] 0.0 10*3/uL 0.0 - 0.5 10*3/uL [facility] Work Phone: 22 Eosinophils/100 WBC (Bld) 0.2 % Low 1.0 - 6.0 % [facility] Work Phone: 22 Granulocytes/100 WBC (Bld) 89.5 % High 40.0 - 80.0 % [facility] Work Phone: Hematocrit (Bld) [Volume fraction] 27.7 % Low 35.0 - 47.0 % [facility] Work Phone: 22 Hemoglobin (Bld) [Mass/Vol] 9.0 g/dL Low 11.7 - 16.0 g/dL [facility] Work Phone: Interpretation and review of laboratory results Abnormal [facility] Work Phone: 22 Lymphocytes (Bld) [#/Vol] 0.8 10*3/uL Low 1.0 - 4.3 10*3/uL [facility] Work Phone: 22 Lymphocytes/100 WBC (Bld) 5.5 % Low 20.0 - 40.0 % [facility] Work Phone: [phone] MCH (RBC) [Entitic mass] 29.3 pg 26.0 - 34.0 pg [employer] Work Phone: MCHC (RBC) [Mass/Vol] 32.4 % 32.0 - 36.0 % [employer] Work Phone: 1 MCV (RBC) [Entitic vol] 90.5 fL 79.0 - 98.0 fL [employer] Work Phone: Monocytes (Bld) [#/Vol] 0.6 10*3/uL 0.0 - 0.8 10*3/uL [employer] Work Phone: Monocytes/100 WBC (Bld) 4.7 % 2.0 - 10.0 % [employer] Phone: Platelet distribution width (Bld) [Ratio] 13.6 % 11.5 - 14.5 % [employer] Phone: Platelet mean volume (Bld) [Entitic vol] 7.0 fL Low 7.4 - 12.4 fL [employer] Work Phone: Comment on above: MPV is a calculated measurement using platelet volume ratio. Platelets (Bld) [#/Vol] 100 10*3/uL Low 140 - 440 10*3/uL [employer] Work Phone: RBC (Bld) [#/Vol] 3.06 10*6/uL Low 3.80 - 5.2 0 10*6/uL [facility] Work Phone: WBC (Bld) [#/Vol] 13.7 10*3/uL High 3.6 - 10.7 10*3/uL [employer] Work Phone: Test Performed by [facility], [address], [place], [place] [id number] [place] [address] LAB [facility] Work Phone: Comp Panel with Mg Reflexon 05-01-2022 Anion gap [Moles/Vol] 6 mmol/L Normal 3-13 [facility] Comment on above: Performed By: #### C MP3M, HEMDF, MDIFF #### [facility] [address] [place] [address] #### PCAL #### [place] [address] [address] [facility] [place] ALT [Catalytic activity/Vol] 14 U/L Normal 0-34 [facility] Comment on above: Result Comment: The ALT test is performed by an updated assay method. Please note that the reference intervals have been changed and are now sex specific. Performed By: #### C ROMEO DEY MDIFF #### [facility] [address] [place] [address] #### PCAL #### [place] [address] [address] [facility] [place] Calcium [Mass/Vol] 7.8 mg/dL Low 8.4-10.4 [facility] Comment on above: Performed By: #### C ROMEO DEY MDIFF #### [place] [address] [place] [address] #### PCAL #### [place] [address] [address] [facility] [place] Glucose [Mass/Vol] 282 mg/dL High 70-100 [facility] Comment on above: Performed By: #### ROMEO LOPEZ MDIFF #### [place] [address] [place] [address] #### PCAL #### [place] [address] [address] [facility] [place] Urea nitrogen [Mass/Vol] 44 mg/dL High 9-20 [facility] Comment on above: Performed By: #### C ROMEO DEY MDIFF #### [place] [address] [place] [address] #### PCAL #### [place] [address] [address] [facility] [place] ALP [Catalytic activity/Vol] 73 U/L Normal 38-126 [facility] Comment on above: Performed By: #### C ROMEO DEY MDIFF #### [place] [address] [place] [address] #### PCAL #### [place] [address] [address] [place], [place] AST [Catalytic activity/Vol] 19 U/L Normal 15-46 [facility] Comment on above: Performed By: #### C ROMEO DEY MDIFF #### [facility] [address] [place] [address] #### PCAL #### [place] [address] [address] [place], [place] Bilirubin [Mass/Vol] 0.5 mg/dL Normal 0.2-1.3 [facility] Comment on above: Performed By: #### C ROMEO DEY MDIFF #### [place] [address] [place] [address] #### PCAL #### [address] CO2 [Moles/Vol] 30 mmol/L Normal 22-30 [facility] Comment on above: Performed By: #### C ROMEO DEY MDIFF #### [place] [address] [place] [address] #### PCAL #### [place] [address] [address] [place], [place] Creatinine [Mass/Vol] 1.77 mg/dL High 0.52-1.25 [facility] Comment on above: Performed By: #### C ROMEO DEY MDIFF #### [place] [address] [place] [address] #### PCAL #### [place] [address] [address] [place], [place] GFR/1.73 sq M.predicted among blacks MDRD (S/P/Bld) [Vol rate/Area] 34.4 mL/min/{1.73_m2} Abnormal >60 [facility] Comment on above: Performed By: #### C ROMEO DEY MDIFF #### [place] [address] [place] [address] #### PCAL #### [place] [address] [place] [address] GFR/1.73 sq M.predicted among non-blacks MDRD (S/P/Bld) [Vol rate/Area] 29.7 mL/min/{1.73_m2} Abnormal >60 [facility] Comment on above: Result Comment: KDIG [...] By: #### C ROMEO DEY MDIFF #### [facility] [address] [place] [address] #### PCAL #### [address] Protein [Mass/Vol] 5.6 g/dL Low 6.3-8.2 [facility] Comment on above: Performed By: #### ROMEO LOPEZ MDIFF #### [facility] [address] [place] [address] #### PCAL #### [address] Potassium [Moles/Vol] 4.5 mmol/L Normal 3.5-5.1 [facility] Comment on above: Performed By: #### ROMEO LOPEZ MDIFF #### [facility] [address] [place] [address] #### PCAL #### [address] [address] Sodium [Moles/Vol] 136 mmol/L Normal 135-145 [facility] Comment on above: Performed By: #### ROMEO LOPEZ MDIFF #### [facility] [address] [place] [address] #### PCAL #### [facility] [address] [place] [address] Albumin [Mass/Vol] 3.2 g/dL Low 3.5-5.0 [facility] Comment on above: Performed By: #### ROMEO LOPEZ MDIFF #### [facility] [address] [place] [address] #### PCAL #### [place] [address] [place] [address] Chloride [Moles/Vol] 100 mmol/L Normal 98-107 [facility] Work Phone: [phone] Comment on above: Performed By: #### ROMEO LOPEZ MDIFF #### [facility] [address] [place] [address] #### PCAL #### [place] [address] [place] [address] Comprehensive Metabolic Pane l w/ Reflex to MGon 05-01-2022 Albumin [Mass/Vol] 3.2 g/dL Low 3.5 - 5.0 g/dL [facility] Work Phone: [phone] ALP (Bld) [Catalytic activity/Vol] 73 U/L 38 - 126 U/L [facility] Work Phone: [phone] ALT [Catalytic activity/Vol] 14 U/L 0 - 34 U/L [facility] Work Phone: [phone] Comment on above: The ALT test is perf ormed by an updated assay method. Please note that the reference intervals have been changed and are now sex specific. Anion gap [Moles/Vol] 6 mmol/L 3 - 13 mmol/L [facility] Work Phone: [phone] AST [Catalytic activity/Vol] 19 U/L 15 - 46 U/L [facility] Work Phone: [phone] Bilirubin [Mass/Vol] 0.5 mg/dL 0.2 - 1 .3 mg/dL [facility] Work Phone: [phone] Calcium [Mass/Vol] 7.8 mg/dL Low 8.4 - 10. 4 mg/dL [facility] Work Phone: [phone] CO2 [Moles/Vol] 30 mmol/L 22 - 30 mmol/L [facility] Work Phone: [phone] Creatinine [Mass/Vol] 1.77 mg/dL High 0.52 - 1.25 mg/dL [facility] Work Phone: [phone] IF NonAfrican Dominican 29.7 mL/min Abnormal >60 [facility] Work Phone: [phone] Comment on above: KDIGO guidelines pro vide [...] 5.6 g/dL Low 6.3 - 8.2 g/dL [facility] Work Phone: [phone] GFR/1.73 sq M.predicted among blacks MDRD (S/P/Bld) [Vol rate/Area] 34.4 mL/min/{1.73_m2} Abnormal >60 [facility] Work Phone: [phone] Glucose [Mass/Vol] 282 mg/dL High 70 - 100 mg/dL [facility] Work Phone: [phone] Interpretation and review of laboratory results Abnormal [facility] Work Phone: [phone] Potassium [Moles/Vol] 4.5 mmol/L 3.5 - 5.1 mmol/L [facility] Work Phone: Sodium [Moles/Vol] 136 mmol/L 135 - 145 mmol/L [facility] Work Phone: [phone] Urea nitrogen (BldV) [Mass/Vol] 44 mg/dL High 9 - 20 mg/dL [facility] Work Phone: [phone] Test Performed by [facility], [address] 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 : 1955 Requested By: GIGI DIEHL Order Number: [id number] Reading MD: Gigi Gao Measurements Intervals [place] Rate: 103 P: 18 RI: 168 QRS: -49 QRSD: 62 T: 48 QT: 332 QTc: 435 Interpretive Statements SINUS TACHYCARDIA INFERIOR INFARCT, OLD ANTERIOR INFARCT, AGE INDETERMINATE LEFT AXIS DEVIATION When compared to 10/02/2021 there has been no significant change Electronically Signed On 05-01-2022 17:37:49 EDT by Gigi Gao [facility] Gigi Gao MD - 05/01/2022 [facility] Test Date: 2022-04-30 Pat Name: KIMBERLY PATEL Department: 01 Room: 453 Gender: F Rap Artist: ZL : 1955 Requested By: GIGI DIEHL Order Number: [id number] Reading MD: Gigi Gao Measurements Intervals [place] Rate: 103 P: 18 RI: 168 QRS: -49 QRSD: 62 T: 48 QT: 332 QTc: 435 Interpretive Statements SINUS TACHYCARDIA INFERIOR INFARCT, OLD ANTERIOR INFARCT, AGE INDETERMINATE LEFT AXIS DEVIATION When compared to 10/02/2021 there has been no significant change Electronically Signed On 05-01-2022 17:37:49 EDT by Gigi Gao [facility] Work Phone: EKG 12 Lead - Chest PainOrde red By: Gigi Gao on 05-01-2022 [facility] Work Phone: Glucose,Bedsideon 05-01-2022 Glucose [Mass/Vol] 288 mg/dL High 70-100 [facility] Comment on above: Result Comment: Test performed by glucose meter. Results may be 10%-15% lower than serum/plasma values. (CLIA ID [id number]) Performed By: #### L ACTS #### [facility] [address] [place] [address] Glucose [Mass/Vol] 143 mg/dL High 70-100 [facility] Comment on above: Result Comment: Test performed by glucose meter. Results may be 10%-15% lower than serum/plasma values. (CLIA ID [id number]) Performed By: #### L ACTS #### [facility] [address] [place] [address] Glucose [Mass/Vol] 256 mg/dL High 70-100 [facility] Comment on above: Result Comment: Test performed by glucose meter. Results may be 10%-15% lower than serum/plasma values. (CLIA ID [id number]) Performed By: #### C TIBURCIO HEMELLEN, MDIFF #### [facility] [address] [place] [address] #### PCAL #### [facility] [address] [place] [address] Glucose [Mass/Vol] 235 mg/dL High 70-100 [facility] Comment on above: Result Comment: Test performed by glucose meter. Results may be 10%-15% lower than serum/plasma values. (CLIA ID [id number]) Performed By: #### C MP3M, HEMDF, MDIFF #### [facility] [address] [place] [address] #### PCAL #### [facility] [address] [place] [address] Hemogram w/ Autodiffon 05-01 Abs Baso Cnt 0.0 10*3/uL Normal 0.0-0.2 [facility] Comment on above: Performed By: #### L ACTS #### [facility] [address] [place] [address] Abs Neutrophile Cnt 12.3 10*3/uL High 1.8-7.0 [facility] Comment on above: Performed By: #### L ACTS #### [facility] [address] [place] [address] Basophils/100 WBC (Bld) 0.1 % Normal 0.0-2.0 [facility] Comment on above: Performed By: #### L ACTS #### [facility] [address] [place] [address] Eosinophils (Bld) [#/Vol] 0.0 10*3/uL Normal 0.0-0.5 [facility] Comment on above: Performed By: #### L ACTS #### [facility] [address] [place] [address] Eosinophils/100 WBC (Bld) 0.2 % Low 1.0-6.0 [facility] Comment on above: Performed By: #### L ACTS #### [facility] [address] [place] [address] Erythrocyte distribution width (RBC) [Ratio] 13.6 % Normal 11.5-14.5 [facility] Comment on above: Performed By: #### L ACTS #### [facility] [address] [place] [address] Granulocytes/100 WBC (Bld) 89.5 % High 40.0-80.0 [facility] Comment on above: Performed By: #### L ACTS #### [facility] [address] [place] [address] Hematocrit (Bld) [Volume fraction] 27.7 % Low 35.0-47.0 [facility] Comment on above: Performed By: #### L ACTS #### [facility] [address] [place] [address] Hemoglobin (Bld) [Mass/Vol] 9.0 g/dL Low 11.7-16.0 [facility] Comment on above: Performed By: #### L ACTS #### [facility] [address] [place] [address] Lymphocytes (Bld) [#/Vol] 0.8 10*3/uL Low 1.0-4.3 [facility] Comment on above: Performed By: #### L ACTS #### [facility] [address] [place] [address] Lymphocytes/100 WBC (Bld) 5.5 % Low 20.0-40.0 [facility] Comment on above: Performed By: #### L ACTS #### [facility] [address] [place] [address] MCH (RBC) [Entitic mass] 29.3 pg Normal 26.0-34.0 [facility] Comment on above: Performed By: #### L ACTS #### [facility] [address] [place] [address] MCHC 32.4 % Normal 32.0-36.0 [facility] Comment on above: Performed By: #### L ACTS #### [facility] [address] [place] [address] MCV (RBC) [Entitic vol] 90.5 fL Normal 79.0-98.0 [facility] Comment on above: Performed By: #### L ACTS #### [facility] [address] [place] [address] Monocytes (Bld) [#/Vol] 0.6 10*3/uL Normal 0.0-0.8 [facility] Comment on above: Performed By: #### L ACTS #### [facility] [address] [place] [address] Monocytes/100 WBC (Bld) 4.7 % Normal 2.0-10.0 [facility] Comment on above: Performed By: #### L ACTS #### [facility] [address] [place] [address] Platelet mean volume (Bld) [Entitic vol] 7.0 fL Low 7.4-12.4 [facility] Comment on above: Result Comment: MPV is a calculated measurement using platelet volume ratio. Performed By: #### L ACTS #### [facility] [address] [place] [address] Platelets (Bld) [#/Vol] 100 10*3/uL Low 140-440 [facility] Comment on above: Performed By: #### L ACTS #### [facility] [address] [place] [address] RBC (Bld) [#/Vol] 3.06 10*6/uL Low 3.80-5.20 [facility] Comment on above: Performed By: #### L ACTS #### [facility] [address] [place] [address] WBC (Bld) [#/Vol] 13.7 10*3/uL High 3.6-10.7 [facility] Comment on above: Performed By: #### L ACTS #### [facility] [address] [place] [address] Lactate, Sepsison 05-01-2022 Lactate [Moles/Vol] 1.1 mmol/L 0.7 - 2. 0 mmol/L [facility] Work Phone: Test Performed by [place] [address] [place], [place] [id number] [place] [address] [facility] Work Phone: Lactate [Moles/Vol] 1.7 mmol/L 0.7 - 2. 0 mmol/L [facility] Work Phone: Test Performed by [place] [address] [place], [place] [address] [place] [address] [facility] Work Phone: Lactic Acid, Sepsison 2021 Lactate [Moles/Vol] 1.1 mmol/L Normal 0.7-2.0 [facility] Comment on above: Performed By: #### C ROMEO DEY MDIFF #### [facility] [address] [place] [address] #### PCAL #### [facility] [address] [place] [address] Lactate [Moles/Vol] 1.7 mmol/L Normal 0.7-2.0 [facility] Comment on above: Performed By: #### C ROMEO DEY MDIFF #### [facility] [address] [place] [address] #### PCAL #### [facility] [address] [place] [address] POCT GlucoseOrdered By: Deo Lopez on 05-01-2022 Glucose [Mass/Vol] 288 mg/dL High 70 - 100 mg/dL [facility] Comment on above: Test performed by gl ucose meter. Results may be 10%-15% lower than serum/plasma values. (CLIA ID [id number]) Interpretation and review of laboratory results Abnormal [facility] POCT Glucoseon 05-01-2022 Test Performed by [facility], [address] LAB Glucose [Mass/Vol] 143 mg/dL High 70 - 100 mg/dL [facility] Work Phone: Comment on above: Test performed by gl ucose meter. Results may be 10%-15% lower than serum/plasma values. (CLIA ID [id number]) Interpretation and review of laboratory results Abnormal [facility] Work Phone: Test Performed by [facility], [address] LAB [facility] Work Phone: Test Performed by [facility], [address] LAB Glucose [Mass/Vol] 235 mg/dL High 70 - 100 mg/dL [facility] Work Phone: Comment on above: Test performed by gl ucose meter. Results may be 10%-15% lower than serum/plasma values. (CLIA ID [id number]) Interpretation and review of laboratory results Abnormal [facility] Work Phone: Test Performed by [facility], [address] LAB [facility] Work Phone: POCT GlucoseOrdered By: Adam Linda on 05-01-2022 Glucose [Mass/Vol] 256 mg/dL High 70 - 100 mg/dL [facility] Work Phone: Comment on above: Test performed by gl ucose meter. Results may be 10%-15% lower than serum/plasma values. (CLIA ID [id number]) Interpretation and review of laboratory results Abnormal [facility] Work Phone: [facility] Work Phone: Procalcitoninon 05-01-2022 Procalcitonin 28.15 ng/mL High 0.00-0.09 [facility] [employer] [facility] Comment on above: Performed By: #### C MP3M, HEMDF, MDIFF #### [facility] [employer] [address] [place] [address] #### PCAL #### [facility] [employer] [address] [address] Interpretation See Below [facility] Work Phone: Comment on above: PCT <0.50 = Low risk of severe sepsis and/or septic shock. PCT >2.00 = High risk of severe sepsis and/or septic shock. Interpretation and review of laboratory results Abnormal [facility] Work Phone: [phone] Procalcitonin 28.15 ng/mL High 0.00 - 0.09 ng/mL [facility] Work Phone: Test Performed by [facility], [address] [place] [address] LAB [facility] Work Phone: [phone] Procalcitonin 4.88 ng/mL High 0.00-0.09 [facility] Comment on above: Performed By: #### L ACTS #### [facility] [employer] [address] [place] [address] Interpretation See Below [facility] Comment on above: PCT <0.50 = Low risk of severe sepsis and/or septic shock. PCT >2.00 = High risk of severe sepsis and/or septic shock. Interpretation and review of laboratory results Abnormal [facility] Procalcitonin 4.88 ng/mL High 0.00 - 0.09 ng/mL [facility] Test Performed by [facility], [address] [place] [address] LAB [facility] Sodium, Ur Randomon 05-01-20 22 Sodium [Moles/Vol] 35 mmol/L Normal 30-90 [facility] Comment on above: Performed By: #### L ACTS #### [facility] [address] [place] [address] Sodium, Urine, RandomOrdered By: Aj aCrl on 05-01-2022 Sodium (U) [Moles/Vol] 35 mmol/L 30 - 90 mmol/L [facility] Sodium, Urine, Randomon 07-0 Test Performed by [facility], [address] LAB US RETROPERITONEAL COMPLETEo n 05-01-2022 Radiology Study observation (narrative) [facility] Work Phone: Add On Lab Teston 04-30-2022 Add On Accepted [facility] Work Phone: Comment on above: Specimen available & acceptable for analysis. Test Performed by [facility], [facility] [address] [place] [address] LAB [facility] Work Phone: Add on test from HISon 04-30 Add on test from HIS Accepted Normal [facility] Comment on above: Result Comment: Spec imen available & acceptable for analysis. Performed By: #### A DDON #### [facility] [address] [place] [address] COVID-19, Flu A/B, and RSV C omboon 04-30-2022 Influenza A by PCR Not detected [facility] Influenza B by PCR Not detected [facility] RSV PCR Not Detected. Expected Result: Not Detected _ Method: Real-time, RT-PCR This assay was developed by [employer] and distributed under an Emergency Use Authorization (EUA) granted by the FDA for the qualitative detection of nucleic acids from SARS-CoV-2, Influenza A, Influenza B, and Respiratory Syncytial Virus. Provider and patient fact sheets can be found at https://www.fda.gov/med ia/336158/download and https://www.fda.gov/med ia/320773/download. [facility] SARS-CoV-2 (COVID-19) RNA IGGY+probe Ql (Unsp spec) Not detected [facility] Test Performed by [facility], [address] [place], [place] [address] [facility] CR Chest Portableon 04-30-20 22 CR Chest Portable Patient Name: KIMBERLY PATEL Diagnostic Radiology ACCESSION EXAM DATE/TIME PROCEDURE ORDERING PROVIDER [id number] 04/30/2022 16:58 EDT CR Chest Portable [id number] -GIGI DIEHL CPT code 69286 Reason For Exam (CR Chest Portable) fever [...] Transcribed Date and Time: 04/30/2022 5:12 Normal [facility] Comp Metabolic Panelon 04-30 ALP [Catalytic activity/Vol] 99 U/L Normal 38-126 [facility] Comment on above: Performed By: #### ROMEO LOPEZ MDIFF #### [facility] [address] [place] [address] #### PCAL #### [address] [address] Protein [Mass/Vol] 6.6 g/dL Normal 6.3-8.2 [facility] Comment on above: Performed By: #### ROMEO LOPEZ MDIFF #### [facility] [address] [place] [address] #### PCAL #### [address] [address] Urea nitrogen [Mass/Vol] 41 mg/dL High 9-20 [facility] Comment on above: Performed By: #### ROMEO LOPEZ MDIFF #### [facility] [address] [place] [address] #### PCAL #### [facility] [address] [place] [address] Creatinine [Mass/Vol] 1.29 mg/dL High 0.52-1.25 [facility] Comment on above: Performed By: #### C ROMEO DEY MDIFF #### [facility] [address] [place] [address] #### PCAL #### [address] [address] GFR/1.73 sq M.predicted among blacks MDRD (S/P/Bld) [Vol rate/Area] 50.4 mL/min/{1.73_m2} Abnormal >60 [facility] Comment on above: Performed By: #### C ROMEO DEY MDIFF #### [facility] [address] [place] [address] #### PCAL #### [address] [address] GFR/1.73 sq M.predicted among non-blacks MDRD (S/P/Bld) [Vol rate/Area] 43.5 mL/min/{1.73_m2} Abnormal >60 [facility] Comment on above: Result Comment: KDIG [...] By: #### C ROMEO DEY MDIFF #### [facility] [place] [address] [place] [address] #### PCAL #### [place] [address] [place], [place] Albumin [Mass/Vol] 3.7 g/dL Normal 3.5-5.0 [facility] Comment on above: Performed By: #### ROMEO LOPEZ MDIFF #### [place] [address] [place] [address] #### PCAL #### [place] [address] [place], [place] Chloride [Moles/Vol] 101 mmol/L Normal 98-107 [facility] Comment on above: Performed By: #### C ROMEO DEY MDIFF #### [place] [address] [place] [address] #### PCAL #### [place] [address] [place], [place] Potassium [Moles/Vol] 4.4 mmol/L Normal 3.5-5.1 [facility] Comment on above: Performed By: #### C ROMEO DEY MDIFF #### [place] [address] [place] [address] #### PCAL #### [place] [address] [facility] [place] Sodium [Moles/Vol] 135 mmol/L Normal 135-145 [facility] Comment on above: Performed By: #### C ROMEO DEY MDIFF #### [address] [place] [address] #### PCAL #### [place] [address] [place] [address] ALT [Catalytic activity/Vol] 16 U/L Normal 0-34 [facility] Comment on above: The ALT test is perf ormed by an updated assay method. Please note that the reference intervals have been changed and are now sex specific. Result Comment: The ALT test is performed by an updated assay method. Please note that the reference intervals have been changed and are now sex specific. Performed By: #### ROMEO LOPEZ MDIFF #### [address] [address] #### PCAL #### [place] [address] [facility] [place], [place] Anion gap [Moles/Vol] 4 mmol/L Normal 3-13 [facility] Comment on above: Performed By: #### ROMEO LOPEZ MDIFF #### [place] [address] [place] [address] #### PCAL #### [place] [address] [facility] [place], [place] AST [Catalytic activity/Vol] 21 U/L Normal 15-46 [facility] Comment on above: Performed By: #### ROMEO LOPEZ MDIFF #### [place] [address] [place] [address] #### PCAL #### [place] [address] [facility] [place] Bilirubin [Mass/Vol] 0.7 mg/dL Normal 0.2-1.3 [facility] Comment on above: Performed By: #### ROMEO LOPEZ MDIFF #### [place] [address] [place] [address] #### PCAL #### [place] [address] [facility] [place] Calcium [Mass/Vol] 8.6 mg/dL Normal 8.4-10.4 [facility] Comment on above: Performed By: #### ROMEO LOPEZ MDIFF #### [place] [address] [place] [address] #### PCAL #### [place] [address] [facility] [place], [place] CO2 [Moles/Vol] 30 mmol/L Normal 22-30 [facility] Comment on above: Performed By: #### ROMEO LOPEZ MDIFF #### [place] [address] [place] [address] #### PCAL #### [place] [address] [facility] [place], [place] Glucose [Mass/Vol] 274 mg/dL High 70-100 [facility] Comment on above: Performed By: #### C MP3M, HEMDF, MDIFF #### [facility] [address] [place] [address] #### PCAL #### [facility] [address] [facility] [place] [address] Complete Urinalysison 2021 Appearance (U) Turbid Abnormal Clear [facility] Comment on above: Result Comment: . Performed By: #### L ACTS #### [facility] [address] [place] [address] Bacteria Loaded Abnormal Negative [facility] Comment on above: Result Comment: . Performed By: #### L ACTS #### [facility] [address] [place] [address] Bilirubin,Urine Negative Normal Negative [facility] Comment on above: Result Comment: . Performed By: #### L ACTS #### [facility] [address] [place] [address] Color (U) Yellow Normal Lt. Yellow [facility] Comment on above: Result Comment: . Performed By: #### L ACTS #### [facility] [address] [place] [address] Glucose Ql (U) 500 mg/dL Abnormal Normal (<70) [facility] Comment on above: Result Comment: . Performed By: #### L ACTS #### [facility] [address] [place] [address] Ketone,Urine Negative Normal Negative [facility] Comment on above: Result Comment: . Performed By: #### L ACTS #### [facility] [address] [place] [address] Leukocytes,Urine 500 Ha/uL Abnormal Negative [facility] Comment on above: Result Comment: . Performed By: #### L ACTS #### [facility] [address] [place] [address] Mucous Threads Few Normal Negative [facility] Comment on above: Result Comment: . Performed By: #### L ACTS #### [facility] [address] [place] [address] Nitrites,Urine Negative Normal Negative [facility] Comment on above: Result Comment: . Performed By: #### L ACTS #### [facility] [address] [place] [address] Non-Squamous Epithelial 1 /[HPF] Abnormal Negative [facility] Comment on above: Result Comment: . Performed By: #### L ACTS #### [facility] [address] [place] [address] Occult Blood,Urine 0.03 mg/dL Abnormal Negative [facility] Comment on above: Result Comment: . Performed By: #### L ACTS #### [facility] [address] [place] [address] pH,Urine 5.5 Normal 5.0-8.0 [facility] Comment on above: Result Comment: . Performed By: #### L ACTS #### [facility] [address] [place] [address] Protein (U) [Mass/Vol] 20 mg/dL Abnormal Negative [facility] Comment on above: Result Comment: . Performed By: #### L ACTS #### [facility] [address] [place] [address] RBC, Urine 3 - 5 Abnormal 0-2 [facility] Comment on above: Result Comment: . Performed By: #### L ACTS #### [facility] [address] [place] [address] Specific [place],Urine 1.014 Normal 1.005 - 1.030 [facility] Comment on above: Result Comment: . Performed By: #### L ACTS #### [facility] [address] [place] [address] Squamous Epithelial 11 - 25 Abnormal 3-5 [facility] Comment on above: Result Comment: . Performed By: #### L ACTS #### [facility] [address] [place] [address] Urobilinogen,Urine Normal Normal Normal (0-1) [facility] Comment on above: Result Comment: . Performed By: #### L ACTS #### [facility] [address] [place] [address] WBC, Urine 26 - 50 Abnormal 0-5 [facility] Comment on above: Result Comment: . Performed By: #### L ACTS #### [facility] [address] [place] [address] White Blood Cell Clump Moderate Abnormal Negative [facility] Comment on above: Result Comment: . Performed By: #### L ACTS #### [facility] System [address] [place] [address] Comprehensive Metabolic Pane wade 04-30-2022 Albumin [Mass/Vol] 3.7 g/dL 3.5 - 5.0 g/dL [facility] ALP (Bld) [Catalytic activity/Vol] 99 U/L 38 - 126 U/L [facility] Chloride [Moles/Vol] 101 mmol/L 98 - 10 7 mmol/L [facility] Creatinine [Mass/Vol] 1.29 mg/dL High 0.52 - 1.25 mg/dL [facility] EGFR IF NonAfrican Dominican 43.5 mL/min Abnormal >60 [facility] Comment on [...] - 20 mg/dL [facility] Test Performed by [facility], [address] [place], [place], [place] [address] [facility] ED Provider Noteon 2 ED Provider Note Emergency Department Encounter [facility] ED Patient: Kimberly Patel : 1955 Date of Evaluation: 04/30/2022 ED Provider: Gigi Diehl MD Note: I wore an N95 mask and gloves during this encounter. CHIEF COMPLAINT: fatigue HPI: Kimberly Paetl is a 66 y.o. 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 Patient reports she [...] HPI SOCIAL HISTORY: Former tobacco use, speaks Iraqi MEDICATIONS: Nursing notes and EMR reviewed ALLERGIES: [...] for clarification. Gigi Diehl MD Acute Care [facility] Gigi Diehl MD 04/30/22 2303 [facility] Glucose,Bedsideon 04-30-2022 Glucose [Mass/Vol] 264 mg/dL High 70-100 [facility] Comment on above: Result Comment: Test performed by glucose meter. Results may be 10%-15% lower than serum/plasma values. (CLIA ID [id number]) Performed By: #### C ROMEO DEY MDIFF #### [facility] [address] [facility] [place] [address] #### PCAL #### [address] Glucose [Mass/Vol] 284 mg/dL High 70-100 [facility] Comment on above: Result Comment: Test performed by glucose meter. Results may be 10%-15% lower than serum/plasma values. (CLIA ID [id number]) Performed By: #### C ROMEO DEY MDIFF #### [facility] [address] [place] [address] #### PCAL #### [address] Hemogramon 04-30-2022 Erythrocyte distribution width (RBC) [Ratio] 13.6 % Normal 11.5-14.5 [facility] Comment on above: Performed By: #### ROMEO LOPEZ MDIFF #### [facility] [address] [place] [address] #### PCAL #### [address] Hematocrit (Bld) [Volume fraction] 33.4 % Low 35.0-47.0 [facility] Comment on above: Performed By: #### C ROMEO DEY MDIFF #### [facility] [address] [place] [place] [address] #### PCAL #### [address] Hemoglobin (Bld) [Mass/Vol] 10.7 g/dL Low 11.7-16.0 [facility] Comment on above: Performed By: #### C ROMEO DEY MDIFF #### [facility] [address] [place] [address] #### PCAL #### [facility] [address] [place], [place] MCH (RBC) [Entitic mass] 29.2 pg Normal 26.0-34.0 [facility] Comment on above: Performed By: #### C ROMEO DEY MDIFF #### [facility] [address] [place] [address] #### PCAL #### [place] [address] [address] [place], [place] MCHC 32.1 % Normal 32.0-36.0 [facility] Comment on above: Performed By: #### C ROMEO DEY MDIFF #### [place] [address] [place] [address] #### PCAL #### [address] MCV (RBC) [Entitic vol] 90.9 fL Normal 79.0-98.0 [facility] Comment on above: Performed By: #### C ROMEO DEY MDIFF #### [facility] [address] [place] [address] #### PCAL #### [place] [address] [address], [place] Platelet mean volume (Bld) [Entitic vol] 6.5 fL Low 7.4-12.4 [facility] Comment on above: Result Comment: MPV is a calculated measurement using platelet volume ratio. Performed By: #### C ROMEO DEY MDIFF #### [facility] [address] [place] [address] #### PCAL #### [address] Platelets (Bld) [#/Vol] 212 10*3/uL Normal 140-440 [facility] Comment on above: Performed By: #### C ROMEO DEY MDIFF #### [facility] [address] [place] [address] #### PCAL #### [facility] [address] [place], [place] RBC (Bld) [#/Vol] 3.68 10*6/uL Low 3.80-5.20 [facility] Comment on above: Performed By: #### C ROMEO DEY MDIFF #### [facility] [address] [place] [address] #### PCAL #### [facility] [address] [place], [place] WBC (Bld) [#/Vol] 10.9 10*3/uL High 3.6-10.7 [facility] Comment on above: Performed By: #### C ROMEO DEY MDIFF #### [facility] [address] [place] [address] #### PCAL #### [facility] [address] [place], [place] Hemogram (CBC)on 04-30-2022 Hematocrit (Bld) [Volume fraction] 33.4 % Low 35.0 - 47.0 % [facility] Hemoglobin (Bld) [Mass/Vol] 10.7 g/dL Low 11.7 - 16.0 g/dL [facility] Interpretation and review of laboratory results Abnormal [facility] MCH (RBC) [Entitic mass] 29.2 pg 26.0 - 34.0 pg [facility] MCHC (RBC) [Mass/Vol] 32.1 % 32.0 - 36.0 % [facility] MCV (RBC) [Entitic vol] 90.9 fL 79.0 - 98.0 fL [facility] Platelet distribution width (Bld) [Ratio] 13.6 % 11.5 - 14.5 % [facility] Platelet mean volume (Bld) [Entitic vol] 6.5 fL Low 7.4 - 12.4 fL [facility] Comment on above: MPV is a calculated measurement using platelet volume ratio. Platelets (Bld) [#/Vol] 212 10*3/uL 140 - 440 10*3/uL [facility] RBC (Bld) [#/Vol] 3.68 10*6/uL Low 3.80 - 5.2 0 10*6/uL [facility] WBC (Bld) [#/Vol] 10.9 10*3/uL High 3.6 - 10.7 10*3/uL [facility] Test Performed by [facility], [address] LAB [facility] Lactate, Sepsison 04-30-2022 Interpretation and review of laboratory results Abnormal [facility] Lactate [Moles/Vol] 2.2 mmol/L Critically high 0.7 - 2.0 mmol/L [facility] Test Performed by [facility], [address] LAB [facility] Lactic Acid, Sepsison 2021 Lactate [Moles/Vol] 2.2 mmol/L Critically high 0.7-2.0 [facility] Comment on above: Performed By: #### L ACTS #### [facility] [address] [place] [address] POCT GlucoseOrdered By: Cliff Tatum on 04-30-2022 Glucose [Mass/Vol] 264 mg/dL High 70 - 100 mg/dL [facility] Comment on above: Test performed by gl ucose meter. Results may be 10%-15% lower than serum/plasma values. (CLIA ID [id number]) Interpretation and review of laboratory results Abnormal [facility] Glucoseon 04-30-20[facility] Test Performed [address] [facility], [address] LAB Test Performed by [facility], [address] LAB POCT GlucoseOrdered By: Nataly Zelaya on 04-30-2022 Interpretation and review of laboratory results Normal [facility] QC OK? y [facility] POCT GlucoseOrdered By: Liam Santillan on 04-30-2022 Glucose [Mass/Vol] 284 mg/dL High 70 - 100 mg/dL [facility] Comment on above: Test performed by gl ucose meter. Results may be 10%-15% lower than serum/plasma values. (CLIA ID [id number]) Interpretation and review of laboratory results Abnormal [facility] Procalcitoninon 04-30-2022 Interpretation See Below Normal [facility] Comment on above: Result Comment: PCT <0.50 = Low risk of severe sepsis and/or septic shock. PCT >2.00 = High risk of severe sepsis and/or septic shock. Performed By: #### L ACTS #### [facility] [address] [place] [address] Interpretation See Below Normal [facility] Comment on above: Result Comment: PCT <0.50 = Low risk of severe sepsis and/or septic shock. PCT >2.00 = High risk of severe sepsis and/or septic shock. Performed By: #### C MP3M, HEMDF, MDIFF #### [facility] [address] [place] [address] #### PCAL #### [facility] [address] [place] [address] SARS-CoV-2, Flu A/B and RSVo n 04-30-2022 SARS-CoV-2 (COVID-19) RNA IGGY+probe Ql (Unsp spec) SARS-CoV-2 --> Status: F Not Detected. Flu A PCR --> Status: F Not Detected. Flu B PCR --> Status: F Not Detected. RSV PCR --> Status: F Not Detected. Expected Result: Not Detected _ Method: Real-time, RT-PCR This assay was developed by [employer] and distributed under an Emergency Use Authorization (EUA) granted by the FDA for the qualitative detection of nucleic acids from SARS-CoV-2, Influenza A, Influenza B, and Respiratory Syncytial Virus. Provider and patient fact sheets can be found at https://www.fda.gov/med ia/434923/download and https://www.fda.gov/med ia/797528/download. Expected Result: Not Detected _ Method: Real-time, RT-PCR This assay was developed by [employer] and distributed under an Emergency Use Authorization (EUA) granted by the FDA for the qualitative detection of nucleic acids from SARS-CoV-2, Influenza A, Influenza B, and Respiratory Syncytial Virus. Provider and patient fact sheets can be found at https://www.fda.gov/med ia/619042/download and https://www.fda.gov/med ia/276873/download. Normal [facility] Comment on above: Performed By: #### L ACTS #### [facility] [address] [place] [address] Troponin Ion 04-30-2022 Troponin I.cardiac [Mass/Vol] 0.019 ng/mL Normal 0.000-0.034 [facility] Comment on above: Result Comment: . Performed By: #### L ACTS #### [facility] [address] [place] [address] Troponin x1on 04-30-2022 Troponin I.cardiac [Mass/Vol] 0.019 ng/mL 0.000 - 0.034 ng/mL [facility] Comment on above: . Test Performed by [facility], [address] [place], [place] [address] [facility] Urinalysison 04-30-2022 Appearance (U) Turbid [...] Protein (U) [Mass/Vol] 20 mg/dL Abnormal Negative [facility] Comment on above: . RBC, UA 3-5 Abnormal 0 - 2 /[HPF] [facility] Comment on above: . Specific [place], Urine 1.014 S [facility] Comment on above: . Squam Epithel, UA 11-25 Abnormal 3 - 5 /[HPF] [facility] Comment on above: . Urobilinogen, Urine Normal Normal (0-1) mg/dL [facility] Comment on above: . WBC Clumps, Urine Moderate Abnormal Negative /[HPF] [facility] Comment on above: . WBC, UA 26-50 Abnormal 0 - 5 /[HPF] [facility] Comment on above: . Test Performed by [facility], [address], [place], [place] [address] [facility] X[facility] CHEST PORTABLEon 04-30-20 Patient Name: KIMBERLY PATEL Diagnostic Radiology ACCESSION EXAM DATE/TIME PROCEDURE ORDERING PROVIDER [id number] 04/30/2022 16:58 EDT CR Chest Portable [id number] ANDERSON CPT code 89233 Reason For Exam (CR Chest Portable) fever [...] WENDELL Transcribed Date and Time: 04/30/2022 5:12 [facility] Fransico Barrios MD - 04/30/2022 Patient Name: KIMBERLY PATEL Diagnostic Radiology ACCESSION EXAM DATE/TIME PROCEDURE ORDERING PROVIDER [id number] 04/30/2022 16:58 EDT CR Chest Portable [id number] ANDERSON CPT code 94112 Reason For Exam (CR Chest Portable) fever [...] WENDELL Transcribed Date and Time: 04/30/2022 5:12 [facility] Work Phone: Radiology Study observation (narrative) [facility] Work Phone: XR CHEST PORTABLEOrdered By: Fransico Barrios on 04-30-2022 [facility] Work Phone: [facility]Non [facility] KIMBERLY PATEL ([id number]) [address] [facility] Date Time Provider Department 04/25/22 FRANKIE DENG [facility] During your visit today, we recorded the following information about you: Jil Mendoza 04/25/2022 10:21 AM Signed Patient calling in to speak with Susan Cuello the pharmacist To give her a call. Has questions about her medications Susan Cuello [facility] 04/25/2022 10:44 AM Signed Returned patients call [...] Date Reviewed: 04/14/2022 Reviewed by: Susan Cuello [facility] - Fully Assessed Reason for Visit: Patient Question [5721] Cmt: Medications Prescriptions as of 04/25/2022 - Insulin [place], Disposable, (PEN NEEDLE) 31 gauge x 3/16 [...] apnea) [G47. (more content not included)... [facility] C[facility] ([facility]) JORGEKIMBERLY ([id number]) [address] [facility] Date Time Provider Department 04/14/22 [facility] During your visit today, we recorded the following information about you: Susan Cuello [facility] 04/14/2022 1:[address] Deng, I [...] Date Reviewed: 04/14/2022 Reviewed by: Susan Cuello [facility] - Fully Assessed Reason for Visit: Care Coordination [2609] Primary Visit Diagnosis:Type 2 diabetes mellitus with diabetic polyneuropathy, with long-term current use of insulin ([facility]) [E11.42, Z79.4] Order(s):CONSULT TO PHARMACY [20000104] Order #: [id number]: 1 Prescriptions as of 04/17/2022 - Insulin [place], Disposable, (PEN NEEDLE) 31 gauge x 3/16 [...] of breath. - flash glucose scanning reader (OOYYOSTYLE GABRIELLE 2 READER) 1 Each. Use as [...] managed by (more content not included)... Normal [facility] 04-11-2022 [facility] KIMBERLY PATEL ([id number]) [address] [facility] Date Time Provider Department 04/11/22 FRANKIE DENG [facility] During your visit today, we recorded the following information about you: Nanette Hager 04/11/2022 8:25 AM Signed Please schedule a post ed visit KRISTIN Valdivia 04/11/2022 12:27 PM Signed Post ED visit scheduled with EDUCATION AND DEVELOPMENT MANAGER on 04/14/22. KRISTIN Mccoy Allergies As of [...] - Lancing Device (LANCING DEVICE WITH LANCETS) [facility] Use as directed to check blood sugar [...] by this patient by: PATIENT Chiquita Bedolla, [facility] 02/10/21 The medications are managed by this [...] CHF, acu (more content not included)... [facility] KIMBERLY PATEL ([id number]) [address] [facility] Date Time Provider Department 04/11/22 FRANKIE DENG [facility] During your visit today, we recorded the following information about you: Nanette Macedo Pss 04/11/2022 3:14 PM Signed Please schedule post ed with medics, visit was moved for [facility] Nanette Macedo Pss Huong Colin 04/11/2022 3:49 [...] [U07.1, J12.82] (more content not included)... Normal [facility] 03-28-2022 [facility] Telephone ([facility]) KIMBERLY PATEL ([id number]) 1955 [facility] Date Time Provider Department 03/28/22 FRANKIE DENG [facility] During your visit today, we recorded the following information about you: June Oro Ma 03/28/2022 9:08 AM Signed The following lab order was sent via e-mail to [facility] on 03/28/2022: PATIENT NAME: Kimberly Patel ADDRESS: [address] [place] [address] PHONE NUMBER: [phone] (home) [phone] (cell) DATE OF : 1955 [facility] ORDERING PROVIDER: Frankie Deng MD LAB TESTS: CBC- Diagnosis [E11.42, Z79.4] CMP - Diagnosis [E11.42, Z79.4] HgbA1C - Diagnosis [E11.42, Z79.4] Lipid panel Nonfasting - Diagnosis [E11.42, Z79.4] TSH - Diagnosis [I10] REQUESTED DATE OF COLLECTION: to be collected by 04/03 SPECIFIC SPECIMEN DRAW INFORMATION: N/A June Oor Ma Allergies As of Date: 03/28/2022 Noted Allergy Reaction DILAUDID (HYDROMORPHONE (BULK)) 05/30/2012 11 - Vomiting JARDIANCE (EMPAGLIFLOZIN) 11/07/2021 14 - Other: See Comments Comments: UTI METFORMIN 05/30/2012 6 - Diarrhea MORPHINE 05/30/2012 11 - Vomiting ONDANSETRON 02/14/2021 16 - Unknown PENICILLINS 05/30/2012 2 - Rash TRULICITY (DULAGLUTIDE) 11/07/2021 8 - GI Upset Comments: Nausea/Vomiting Date Reviewed: 03/22/2022 Reviewed by: Susan Cuello [facility] - Fully Assessed Reason for Visit: rock [...] Resolved Hea (more content not included)... Normal [facility] CNPEstrellita 03-24-2022 CNPN Telephone ([facility]) KIMBERLY PATEL ([id number]) 1955 [facility] Date Time Provider Department 03/24/22 FRANKIE DENG [facility] During your visit today, we recorded the following information about you: Clovis Alarcon MA 03/24/2022 12:33 PM Signed Hema from respiratory called stating patient needs requalification for oxygen. She's requesting to have PCP sign and date note from 03/22 in system and new rx for oxygen. Hema [phone] option 2 Clovis Deng MD 03/25/2022 3:37 PM Signed Noted completed. O2 orders submitted. Thanks. Emerald Lovell MA 03/28/2022 10:53 AM Signed I have faxed the orders and the visit notes to [facility] RT. Emerald Lovell CMA Allergies [...] Date Reviewed: 03/22/2022 Reviewed by: Susan Cuello [facility] - Fully Assessed Reason for Visit: DME [...] [U07.1, J12.82] (more content not included)... Normal [facility] Lidia 03-23-2022 CNPN Telephone ([facility]) KIMBERLY PATEL ([id number]) [address] [facility] Date Time Provider Department 03/23/22 SHEREE AVENDANO During your visit today, we recorded the following information about you: SAL Manuel 03/23/2022 10:17 AM Addendum Welcome Home Call: a. Date and Time: 10:11 AM 03/23/2022 b. Contact name/relationship: Kimberly caldwell.Have you been active with any Home Care company in the last 60 days? No. d. Are you interesting in initiated services with [facility]? yes (yes or no) e. [...] concerns in the meantime, our # is [phone], option 1 (need to confirm) Thank you [...] Date Reviewed: 03/22/2022 Reviewed by: Susan Cuello [facility] - Fully Assessed Reason for Visit: Home [...] of breath. - flash glucose scanning reader (OOYYOSTYLE GABRIELLE 2 READER) 1 Each. Use as [...] EC table (more content not included)... Normal [facility] Lidia 03-09-2022 CNPN [facility]phone [facility] KIMBERLY PATEL ([id number]) [address] [facility] Date Time Provider Department 03/09/22 MERISSA CISNEROS [facility] During your visit today, we recorded the following information about you: Merissa Cisneros, KRISTIN 03/09/2022 2:13 PM Signed [facility] Respiratory is currently [...] wearing oxygen. You can add the SmartText '[id number]' to your office note to meet the [...] can continue processing your request. Thank you, [facility] [phone] fax Frankie Deng MD 03/20/2022 10:00 PM Signed Will address at 03/22 visit. KRISTIN Muro 03/23/2022 12:[address] afternoon Dr Deng, we are in need of re qualification documentation to continue to supply oxygen for your patent, please sign and date your progress note on 03/22/22 and also for a new script and testing. Thank you Steve Cortes [phone] [place] Sanches MA 03/24/2022 12:21 PM Signed Received a call from patient inquiring about oxygen tank. Kimberly [phone] [place] Deng MD 03/25/2022 3:37 PM Signed Noted completed. O2 orders placed. Thanks. Chanell Samuel 03/28/2022 10:57 AM Signed Order, demo and office notes all faxed successfully to [phone] Chanell Samuel March 28, 2022 10:57 AM [...] of breath. - flash glucose scanning reader (OOYYOSTYLE GABRIELLE 2 READER) 1 Each. Use as directed to check blood sugars 3 times daily. Scan FreeStyle Gabrielle 2 sensors at least every 8 hours. - flash glucose sensor (FREESTYLE GABRIELLE 2 SENSOR) kit 2 Each. Use as directed to check blood sugars 3 times daily. Scan FreeStyle Gabrielle 2 sensors at [facility] (more content not included)... Normal [facility] CNPNon 02-28-2022 CNPN Telephone ([facility]) KIMBERLY PATEL ([id number]) [address] [facility] Date Time Provider Department 02/28/22 MOE MEYER During your visit today, we recorded the following information about you: Elis Harvey Pss 02/28/2022 4:03 PM Signed Patient requesting Susan call her directly, please advise. Susan Cuello [facility] 02/28/2022 4:44 PM Signed Returned patients call [...] - Lancing Device (LANCING DEVICE WITH LANCETS) [facility] Use as directed to check blood sugar 3 times daily, insulin: yes, E11.9 - HYDROcodone-Acetaminoph en (NORCO) 7.5-325 mg per tablet (more content not included)... Normal [facility] Lidia 01-23-2022 [facility]ERN [facility] KIMBERLY PATEL ([id number]) [address] [facility] Date Time Provider Department 01/23/22 SUSAN CUELLOW During your visit today, we recorded the following information about you: Susan Cuello [facility] 01/23/2022 4:41 PM Signed Pt contacted office requesting to speak with pharmD (myself) directly. Returned pt's call who provided an update that her insurance has not yet received CGM request from [employer]. Advised pt that her recent chart notes were faxed to [employer] by both myself and Dr. Meyer's office on 01/06/22 and 01/12/22, respectively. Encouraged pt to contact [employer] as they may be awaiting confirmation from [...] - Lancing Device (LANCING DEVICE WITH LANCETS) [facility] Use as directed to check blood sugar [...] by this patient by: PATIENT Chiquita Bedolla [facility] 02/10/21 The medications are managed by this patient by: PATIENT Chiquita Rosario (more content not included)... Normal [facility] Lidia 01-10-2022 WILFRIDO Telephone [facility] KIMBERLY PATEL ([id number]) [address] [facility] Date Time Provider Department 01/10/22 GERSON DANILES [facility] During your visit today, we recorded the following information about you: Gerson Daniels 01/10/2022 3:42 PM Signed For [facility] Respiratory to provide [...] wearing oxygen. You can add the SmartText '[id number]' to your office note to meet the [...] can continue processing your request. Thank you, [facility] [phone] fax Frankie Deng MD 01/11/2022 8:33 AM [...] Date Reviewed: 01/06/2022 Reviewed by: Susan Cuello [facility] - Fully Assessed Reason for Visit: Oxygen [...] Chest Leslee (more content not included)... Normal [facility] CNPNon 01-06-2022 CNPN Telephone ([facility]) KIMBERLY PATEL ([id number]) [address] [facility] Date Time Provider Department 01/06/22 SUSAN CUELLO During your visit today, we recorded the following information about you: Mayatiago Nguyen 01/06/2022 1:02 PM Signed Patient calling requesting a call back from Susan Cuello. Patient did not want to tell me what she needed, wants to go over it with Susan. Please call to advise. Susan Cuello [facility] 01/06/2022 3:07 PM Signed Returned pt's call Reports she contacted her new CGM supply company, [employer] which reports they are awaiting paperwork from PCP outlining pt meets criteria for CGM use (fax: [phone]). Will print recent office notes and fax to company as requested at this time. Faxed. Thank you, Susan Cuello, PharmD [place] LPN 01/12/2022 8:41 AM Signed faed office notes from last appt with savel and pharmacy to Med. [phone] Allergies As of Date: 01/06/2022 Noted Allergy Reaction DILAUDID (HYDROMORPHONE (BULK)) 05/30/2012 11 - Vomiting JARDIANCE (EMPAGLIFLOZIN) 11/07/2021 14 - Other: See Comments Comments: UTI METFORMIN 05/30/2012 6 - Diarrhea MORPHINE 05/30/2012 11 - Vomiting ONDANSETRON 02/14/2021 16 - Unknown PENICILLINS 05/30/2012 2 - Rash TRULICITY (DULAGLUTIDE) 11/07/2021 8 - GI Upset Comments: Nausea/Vomiting Date Reviewed: 01/06/2022 Reviewed by: [facility] [facility] - Fully Assessed Reason for Visit: Patient [...] patient by (more content not included)... Normal [facility] Lidia 12-30-2021 [facility]ERN [facility] KIMBERLY PATEL ([id number]) [address] [facility] Date Time Provider Department 12/30/21 MOE MEYER [...] by this patient by: PATIENT Chiquita Bonneraryasonia, [facility] 02/10/21 The medica (more content not included)... Normal [facility] Lidia 12-29-2021 WILFRIDO Telephone (SANA) KIMBERLY PATEL ([id number]) [address] [facility] Date Time Provider Department 12/29/21 MOE MEYER During your visit today, we recorded the following information about you: India Chavarria LPN 12/29/2021 8:48 AM Signed Us [employer] glucose monitoring supplies form on dr jose [...] by this patient by: PATIENT Chiquita Bedolla, [facility] 02/10/21 The medications are managed by this [...] (HCC) [I50.9] (more content not included)... Normal [facility] CNPN Telephone ([facility]) KIMBERLY PATEL ([id number]) [address] [facility] Date Time Provider Department 12/29/21 MOE MEYER During your visit today, we recorded the following information about you: India Chavarria LPN 12/29/2021 11:57 AM Signed Prior Authorization pending for basaglar and novolog Susan Cuello, [facility] 01/06/2022 12:04 PM Signed Adjusted to Levemir and Humalog per insurance at recent pharmD fern on 01/06/22. Thank you, Susan Cuello, PharmD [facility] Shea[facility] GALEAS 01/17/2022 2:32 PM Signed Looks like an appeal was done for pts novolog and approved until 2021. Will send to pharmacy to see if they want pt on novolog or humalog. [facility] Phone # Susan Cuello [facility] 01/17/2022 4:42 PM Signed Noted. Will not [...] managed by (more content not included)... [facility] KIMBERLY PATEL ([id number]) [address] [facility] Date Time Provider Department 12/20/21 MOE MEYER During your visit today, we recorded the following information about you: Arelis Viramontes RN 12/20/2021 4:18 PM Signed Per [facility], they cannot accept her for home care as the order is written. They are unable to perform oxygen testing however it looks like there is a consult to medical care at home is process for this. They can do home care services such as PT, OT, CHEFS, and penitentiary but will need a new order, demographics, [...] by this patient by: LUIS ALBERTO Bedolla, [facility] 02/10/21 The medications are managed by this patient by: PATIENT Chiquita Graeme, PharmD 12/03/20 The medica (more content not included)... Normal [facility] CNPNon 12-19-2021 [facility] KIMBERLY PATEL ([id number]) [address] [facility] Date Time Provider Department 12/19/21 MOE MEYER [facility] During your visit today, we recorded the following information about you: Nanette Garcia, PSS 12/21/2021 9:18 AM Addendum [facility] AT [facility] REFERRAL Date Referral Received: 12/19/2021 Referral Source: [facility] Physician office Date of : 1955 Age: [age] year old PCP: No primary care provider on file. Visit address from [facility]: [address] [place] [address] Reason for referral: Ongoing Primary Care Name [...] services ordered: None Primary Insurance Company: Payor: [facility] MEDICARE / Plan: [facility] DUAL COMPLETE HMO SNP / Product Type: Medicare / Primary Insurance ID Number: [id number] Nanette Garcia, PSS 12/21/2021 9:18 AM Signed Referral received from Dr. Moe Meyer on 12/19/2021 for [facility] services. Referral sent to seed sales manager for review. Referral source will be [...] contact and phone number for scheduling: PT [phone] [facility] Pharmacy confirmed and entered in Nugg-it: Yes Does the patient currently take any blood thinning medications ? like Coumadin or Warfarin? Yes, PLAVIX Is the patient taking pain medication? No Does the patient need help transferring out of bed? b. needs physical assistance by another person Do you have any other services such as home health care, other physicians, hospice, respiratory, DME, etc. coming out to your home?: [facility] at Home and PT AND CHEFS BUT THEY HAVE NOT CALLED Pt TO SCHEDULE Patient Concerns: N/A Do you have any Advance Directives such as a Power of Ice Cream Scooper or a Living Will? If so, please have these out and available for the provider to review on the first visit. Or if the patient/caregiver has the capability to scan or send a copy to an email please have them send copies to [email or web address] . During this visit, your physician [...] etc. Current patient phone numbers in Demographics: [phone] (home) [phone] (cell) Our practice utilizes an automated appointment [...] if needed. Our office phone number is [phone]. Appointments must be confirmed via the automated system or a telephone call to the office before sending the provider out. Since we are talking today and confirming the first visit appointment, you will not need to call us back when (more content not included)... Normal [facility] CNPN Telephone ([facility]CS[facility]) KIMBERLY PATEL ([id number]) [address] [facility] Date Time Provider Department 12/19/21 RIANA GARCIA HCSJOSE During your visit today, we recorded the following information about you: KRISTIN Cramer 12/19/2021 8:32 AM Signed Thank you for the referral of your patient to [facility]. At this time, we are at capacity and are unable to accept your patient. In order to help your patient receive quality home care, we have included reputable agencies that service this area: [facility] [phone] or [facility] [phone]. Please contact this agency and they will work with your patient to arrange timely services. Thank you, KRISTIN Cramer 12/19/2021 8:31 AM KRISTIN Pickard 12/19/2021 12:11 PM Addendum Called and spoke with patient about a different home care company. She requested [facility]. Gave patient their phone number and faxed demographics, insurance and photo id, referral and office notes to [facility] [phone]. Received successful fax transmission. Allergies As of [...] Other Visit Diagnoses:Chronic respiratory failure with hypoxia ([facility]) [J96.11] Chronic combined systolic and diastolic congestive heart failure ([facility]) [I50.42] Class 3 severe obesity due to excess calories with serious comorbidity and body mass index (BMI) of 45.0 to 49.9 in adult ([facility]) [E66.01, Z68.42] Order(s):[facility] [[id number]] Order #: [id number]: 1 Prescriptions as of 12/19/2021 - linaGLIPtin [...] as ne (more content not included)... Normal [facility] CNPNon 12-16-2021 [facility] KIMBERLY PATEL ([id number]) [address] [facility] Date Time Provider Department 12/16/21 LIDA ACNAS [facility] During your visit today, we recorded the following information about you: Lida Ariza, [facility] 12/16/2021 1:43 PM Signed [facility] Respiratory received your [...] wearing oxygen. You can add the SmartText '[id number]' to your office note to meet the [...] can continue processing your request. Thank you, [facility] [phone] fax Lurdes Tovar Ma 12/19/2021 1:27 PM [...] Date Reviewed: 12/16/2021 Reviewed by: Susan Cuello [facility] - Fully Assessed Reason for Visit: Oxygen [...] - Lancing Device (LANCING DEVICE WITH LANCETS) [facility] Use as directed to check blood sugar [...] mouth on (more content not included)... [facility] KIMBERLY PATEL ([id number]) [address] [facility] Date Time Provider Department 12/14/21 [facility] During your visit today, we recorded the following information about you: Alexandro Qureshi RN 12/14/2021 10:51 AM Signed Patient is requesting an order for nasal cannulas sent to [facility] respiratory. Pended. Allergies As of [...] Date Reviewed: 11/23/2021 Reviewed by: Susan Cuello [facility] - Fully Assessed Reason for Visit: Orders [681] Primary Visit Diagnosis:Chronic hypoxemic respiratory failure (HCC) [J96.11] Order(s):CONSULT TO [facility] [[id number]] Order #: [id number]: 1 Prescriptions as of 12/15/2021 - metoprolol [...] diabetes mellitu (more content not included)... Normal [facility] Glucose,Bedsideon 10-12-2021 Glucose [Mass/Vol] 252 mg/dL High 70-100 [facility] Comment on above: Result Comment: Test performed by glucose meter. Results may be 10%-15% lower than serum/plasma values. (CLIA ID [id number]) Performed By: #### L ACTS #### [facility] [address] [place] [address] Basic Metabolic Panelon 12- Anion gap [Moles/Vol] 2 mmol/L Low 3-13 [facility] Comment on above: Performed By: #### H EMDF, LIPA4, LACTS, CMP3M #### [facility] [address] [place] [address] CO2 [Moles/Vol] 30 mmol/L Normal 22-30 [facility] Comment on above: Performed By: #### H EMDF, LIPA4, LACTS, CMP3M #### [facility] [address] [place] [address] Creatinine [Mass/Vol] 1.46 mg/dL High 0.52-1.25 [facility] Comment on above: Performed By: #### H EMDF, LIPA4, LACTS, CMP3M #### [facility] [address] [place] [address] GFR/1.73 sq M.predicted among blacks MDRD (S/P/Bld) [Vol rate/Area] 43.6 mL/min/{1.73_m2} Abnormal >60 [facility] Comment on above: Performed By: #### H EMDF, LIPA4, LACTS, CMP3M #### [facility] [address] [place] [address] GFR/1.73 sq M.predicted among non-blacks MDRD (S/P/Bld) [Vol rate/Area] 37.6 mL/min/{1.73_m2} Abnormal >60 [facility] Comment on above: Result Comment: KDIG [...] #### H EMDF, LIPA4, LACTS, CMP3M #### [facility] [address] [place] [address] Urea nitrogen [Mass/Vol] 27 mg/dL High 9-20 [facility] Comment on above: Performed By: #### H EMDF, LIPA4, LACTS, CMP3M #### [facility] [address] [place] [address] Chloride [Moles/Vol] 105 mmol/L Normal 98-107 [facility] Comment on above: Performed By: #### H EMDF, LIPA4, LACTS, CMP3M #### [facility] [address] [place] [address] Potassium [Moles/Vol] 4.8 mmol/L Normal 3.5-5.1 [facility] Comment on above: Performed By: #### H EMDF, LIPA4, LACTS, CMP3M #### [facility] [address] [place] [address] Sodium [Moles/Vol] 137 mmol/L Normal 135-145 [facility] Comment on above: Performed By: #### H EMDF, LIPA4, LACTS, CMP3M #### [facility] [address] [place] [address] Calcium [Mass/Vol] 8.9 mg/dL Normal 8.4-10.4 [facility] Comment on above: Performed By: #### H EMDF, LIPA4, LACTS, CMP3M #### [facility] [address] [place] [address] Glucose [Mass/Vol] 221 mg/dL High 70-100 [facility] Comment on above: Performed By: #### H EMDF, LIPA4, LACTS, CMP3M #### [facility] [address] [place] [address] Basic Metabolic Panel w/ Ref aidan to MGon 10-11-2021 Anion gap [Moles/Vol] 2 mmol/L Low 3 - 13 mmol/L [facility] Chloride [Moles/Vol] 105 mmol/L 98 - 10 7 mmol/L [facility] CO2 [Moles/Vol] 30 mmol/L 22 - 30 mmol/L [facility] Creatinine [Mass/Vol] 1.46 mg/dL High 0.52 - 1.25 mg/dL [facility] EGFR IF NonAfrican Dominican 37.6 mL/min Abnormal >60 [facility] GFR/1.73 sq [...] 10%-15% lower than serum/plasma values. (CLIA ID [id number]) Performed By: #### H EMDF, LIPA4, LACTS, CMP3M #### [facility] [address] [place] [address] Hemogram w/ Autodiffon 10-11 Erythrocyte distribution width (RBC) [Ratio] 15.9 % High 11.5-14.5 [facility] Comment on above: Performed By: #### H EMDF, LIPA4, LACTS, CMP3M #### [facility] [address] [place] [address] Hematocrit (Bld) [Volume fraction] 26.5 % Low 35.0-47.0 [facility] Comment on above: Performed By: #### H EMDF, LIPA4, LACTS, CMP3M #### [facility] [address] [place] [address] Hemoglobin (Bld) [Mass/Vol] 8.5 g/dL Low 11.7-16.0 [facility] Comment on above: Performed By: #### H EMDF, LIPA4, LACTS, CMP3M #### [facility] [address] [place] [address] MCH (RBC) [Entitic mass] 27.1 pg Normal 26.0-34.0 [facility] Comment on above: Performed By: #### H EMDF, LIPA4, LACTS, CMP3M #### [facility] [address] [place] [address] MCHC 32.1 % Normal 32.0-36.0 [facility] Comment on above: Performed By: #### H EMDF, LIPA4, LACTS, CMP3M #### [facility] [address] [place] [address] MCV (RBC) [Entitic vol] 84.5 fL Normal 79.0-98.0 [facility] Comment on above: Performed By: #### H EMDF, LIPA4, LACTS, CMP3M #### [facility] [address] [place] [address] Platelet mean volume (Bld) [Entitic vol] 6.2 fL Low 7.4-10.4 [facility] Comment on above: Performed By: #### H EMDF, LIPA4, LACTS, CMP3M #### [facility] [address] [place] [address] Platelets (Bld) [#/Vol] 363 10*3/uL Normal 140-440 [facility] Comment on above: Performed By: #### H EMDF, LIPA4, LACTS, CMP3M #### [facility] [address] [place] [address] RBC (Bld) [#/Vol] 3.14 10*6/uL Low 3.80-5.20 [facility] Comment on above: Performed By: #### H EMDF, LIPA4, LACTS, CMP3M #### [facility] [address] [place] [address] WBC (Bld) [#/Vol] 5.7 10*3/uL Normal 3.6-10.7 [facility] Comment on above: Performed By: #### H EMDF, LIPA4, LACTS, CMP3M #### [facility] [address] [place] [address] Manual Diffon 10-11-2021 Abs Lymph Cnt 1.3 10*3/uL Normal 1.1-4.5 [facility] Comment on above: Performed By: #### H EMDF, LIPA4, LACTS, CMP3M #### [facility] [address] [place] [address] Abs Monocyte Cnt 0.5 10*3/uL Normal 0.2-1.1 [facility] Comment on above: Performed By: #### H EMDF, LIPA4, LACTS, CMP3M #### [facility] [address] [place] [address] Abs Neutrophile Cnt 3.6 10*3/uL Normal 2.2-8.2 [facility] Comment on above: Performed By: #### H EMDF, LIPA4, LACTS, CMP3M #### [facility] [address] [place] [address] Anisocytosis Slight Normal [facility] Comment on above: Performed By: #### H EMDF, LIPA4, LACTS, CMP3M #### [facility] [address] [place] [address] Elliptocytes Slight Normal [facility] Comment on above: Performed By: #### H EMDF, LIPA4, LACTS, CMP3M #### [facility] [address] [place] [address] Lymphocytes 22 % Normal 20-40 [facility] Comment on above: Performed By: #### H EMDF, LIPA4, LACTS, CMP3M #### [facility] [address] [place] [address] Metamyelocytes 4 % Abnormal <1 [facility] Comment on above: Performed By: #### H EMDF, LIPA4, LACTS, CMP3M #### [facility] [address] [place] [address] Monocytes 9 % Normal 2-10 [facility] Comment on above: Performed By: #### H EMDF, LIPA4, LACTS, CMP3M #### [facility] [address] [place] [address] Myelocytes 1 % Abnormal <1 [facility] Comment on above: Performed By: #### H EMDF, LIPA4, LACTS, CMP3M #### [facility] [address] [place] [address] Ovalocytes Slight Normal [facility] Comment on above: Performed By: #### H EMDF, LIPA4, LACTS, CMP3M #### [facility] [address] [place] [address] Poikilocytosis Slight Normal [facility] Comment on above: Performed By: #### H EMDF, LIPA4, LACTS, CMP3M #### [facility] [address] [place] [address] Polychromasia Slight Normal [facility] Comment on above: Performed By: #### H EMDF, LIPA4, LACTS, CMP3M #### [facility] [address] [place] [address] RBC Morphology ABNORMAL Normal [facility] Comment on above: Performed By: #### H EMDF, LIPA4, LACTS, CMP3M #### [facility] [address] [place] [address] Seg Neutrophils 64 % Normal 40-80 [facility] Comment on above: Performed By: #### H EMDF, LIPA4, LACTS, CMP3M #### [facility] [address] [place] [address] Abs Baso Cnt 0.0 10*3/uL Normal 0.0-0.2 [facility] Comment on above: Performed By: #### H EMDF, LIPA4, LACTS, CMP3M #### [facility] [address] [place] [address] Abs Eosin Cnt 0.0 10*3/uL Normal 0.0-0.5 [facility] Comment on above: Performed By: #### H EMDF, LIPA4, LACTS, CMP3M #### [facility] [address] [place] [address] Bands 0 % Normal 0-3 [facility] Comment on above: Performed By: #### H EMDF, LIPA4, LACTS, CMP3M #### [facility] [address] [place] [address] Basophils 0 % Normal 0-2 [facility] Comment on above: Performed By: #### H EMDF, LIPA4, LACTS, CMP3M #### [facility] [address] [place] [facility] Cells counted 100 Normal [facility] Comment on above: Performed By: #### H EMDF, LIPA4, LACTS, CMP3M #### [facility] [address] [place] [facility] Eosinophils 0 % Low 1-6 [facility] Comment on above: Performed By: #### H EMDF, LIPA4, LACTS, CMP3M #### [facility] [address] [place] [address] Manual Differentialon 2020 Absolute Baso # 0.0 10*3/uL 0.0 - 0.2 10*3/uL [facility] Absolute Eos # 0.0 10*3/uL 0.0 - 0.5 10*3/uL [facility] Absolute Lymph # 1.3 10*3/uL 1.1 - 4.5 10*3/uL [facility] Absolute Hutchinson # 0.5 10*3/uL 0.2 - 1.1 10*3/uL [...] Interpretation and review of laboratory results Abnormal [facility] Basic Metabolic Panelon 09-28 Calcium [Mass/Vol] 8.6 mg/dL Normal 8.4-10.4 [facility] Comment on above: Performed By: #### H EMDF, LIPA4, LACTS, CMP3M #### [facility] [address] [place] [address] Anion gap [Moles/Vol] 0 mmol/L Low 3-13 [facility] Comment on above: Performed By: #### H EMDF, LIPA4, LACTS, CMP3M #### [facility] [address] [place] [address] CO2 [Moles/Vol] 30 mmol/L Normal 22-30 [facility] Comment on above: Performed By: #### H EMDF, LIPA4, LACTS, CMP3M #### [facility] [address] [place] [address] Creatinine [Mass/Vol] 1.42 mg/dL High 0.52-1.25 [facility] Comment on above: Performed By: #### H EMDF, LIPA4, LACTS, CMP3M #### [facility] [address] [place] [address] GFR/1.73 sq M.predicted among blacks MDRD (S/P/Bld) [Vol rate/Area] 45.1 mL/min/{1.73_m2} Abnormal >60 [facility] Comment on above: Performed By: #### H EMDF, LIPA4, LACTS, CMP3M #### [facility] [address] [place] [address] GFR/1.73 sq M.predicted among non-blacks MDRD (S/P/Bld) [Vol rate/Area] 38.9 mL/min/{1.73_m2} Abnormal >60 [facility] Comment on above: Result Comment: KDIG [...] #### H EMDF, LIPA4, LACTS, CMP3M #### [facility] [address] [place] [address] Glucose [Mass/Vol] 206 mg/dL High 70-100 [facility] Comment on above: Performed By: #### H EMDF, LIPA4, LACTS, CMP3M #### [facility] [address] [place] [address] Urea nitrogen [Mass/Vol] 30 mg/dL High 9-20 [facility] Comment on above: Performed By: #### H EMDF, LIPA4, LACTS, CMP3M #### [facility] [address] [place] [address] Chloride [Moles/Vol] 106 mmol/L Normal 98-107 [facility] Comment on above: Performed By: #### H EMDF, LIPA4, LACTS, CMP3M #### [facility] [address] [place] [address] Potassium [Moles/Vol] 5.2 mmol/L High 3.5-5.1 [facility] Comment on above: Performed By: #### H EMDF, LIPA4, LACTS, CMP3M #### [facility] [address] [place] [address] Sodium [Moles/Vol] 136 mmol/L Normal 135-145 [facility] Comment on above: Performed By: #### H EMDF, LIPA4, LACTS, CMP3M #### [facility] [address] [place] [address] Basic Metabolic Panel w/ Ref aidan to MGon 10-10-2021 Anion gap [Moles/Vol] 0 mmol/L Low 3 - 13 mmol/L [facility] Calcium [Mass/Vol] 8.6 mg/dL 8.4 - 10. 4 mg/dL [facility] Chloride [Moles/Vol] 106 mmol/L 98 - 10 7 mmol/L [facility] CO2 [Moles/Vol] 30 mmol/L 22 - 30 mmol/L [facility] Creatinine [Mass/Vol] 1.42 mg/dL High 0.52 - 1.25 mg/dL [facility] EGFR IF NonAfrican Dominican 38.9 mL/min Abnormal >60 [facility] GFR/1.73 sq M.predicted among blacks MDRD (S/P/Bld) [Vol rate/Area] 45.1 mL/min/{1.73_m2} Abnormal >60 [facility] Glucose [Mass/Vol] 206 mg/dL High 70 - 100 mg/dL [facility] Interpretation and review of laboratory results Abnormal [facility] Potassium [Moles/Vol] 5.2 mmol/L High 3.5 - 5.1 mmol/L [facility] Sodium [Moles/Vol] 136 mmol/L 135 - 145 mmol/L [facility] Urea nitrogen (BldV) [Mass/Vol] 30 mg/dL High 9 - 20 mg/dL [facility] CBC Auto Differentialon 09-28 Hematocrit (Bld) [Volume fraction] 25.5 % Low 35.0 - 47.0 % [facility] Hemoglobin.gastrointest inal spec 1 Ql (Stl) 8.2 g/dL Low 11.7 - 16.0 g/dL [facility] Interpretation and review of laboratory results [...] [#/Vol] 5.5 10*3/uL 3.6 - 10.7 10*3/uL [facility] Glucose,Bedsideon 10-10-2021 Glucose [Mass/Vol] 166 mg/dL High 70-[address] [place] [address] Comment on above: Result Comment: Test performed by glucose meter. Results may be 10%-15% lower than serum/plasma values. (CLIA ID [id number]) Performed By: #### H EMDF, LIPA4, LACTS, CMP3M #### [facility] [address] [place] [address] Glucose [Mass/Vol] 261 mg/dL High 70-100 [facility] Comment on above: Result Comment: Test performed by glucose meter. Results may be 10%-15% lower than serum/plasma values. (CLIA ID [id number]) Performed By: #### B GLU #### [facility] [address] [place] [address] Glucose [Mass/Vol] 231 mg/dL High 70-100 [facility] [facility] Comment on above: Result Comment: Test performed by glucose meter. Results may be 10%-15% lower than serum/plasma values. (CLIA ID [id number]) Performed By: #### H EMDF, LIPA4, LACTS, CMP3M #### [facility] [address] [place] [address] Glucose [Mass/Vol] 184 mg/dL High 70-100 [facility] Comment on above: Result Comment: Test performed by glucose meter. Results may be 10%-15% lower than serum/plasma values. (CLIA ID [id number]) Performed By: #### H EMDF, LIPA4, LACTS, CMP3M #### [facility] [address] [place] [address] Glucose [Mass/Vol] 228 mg/dL High 70-100 [facility] Comment on above: Result Comment: Test performed by glucose meter. Results may be 10%-15% lower than serum/plasma values. (CLIA ID [id number]) Performed By: #### H EMDF, LIPA4, LACTS, CMP3M #### [facility] [address] [place] [address] Hemogram w/ Autodiffon 10-10 Erythrocyte distribution width (RBC) [Ratio] 16.3 % High 11.5-14.5 [facility] Comment on above: Performed By: #### H EMDF, LIPA4, LACTS, CMP3M #### [facility] [address] [place] [address] Hematocrit (Bld) [Volume fraction] 25.5 % Low 35.0-47.0 [facility] Comment on above: Performed By: #### H EMDF, LIPA4, LACTS, CMP3M #### [facility] [address] [place] [address] Hemoglobin (Bld) [Mass/Vol] 8.2 g/dL Low 11.7-16.0 [facility] Comment on above: Performed By: #### H EMDF, LIPA4, LACTS, CMP3M #### [facility] [address] [place] [address] MCH (RBC) [Entitic mass] 27.1 pg Normal 26.0-34.0 [facility] Comment on above: Performed By: #### H EMDF, LIPA4, LACTS, CMP3M #### [facility] [address] [place] [address] MCHC 32.1 % Normal 32.0-36.0 [facility] Comment on above: Performed By: #### H EMDF, LIPA4, LACTS, CMP3M #### [facility] [address] [place] [address] MCV (RBC) [Entitic vol] 84.3 fL Normal 79.0-98.0 [facility] Comment on above: Performed By: #### H EMDF, LIPA4, LACTS, CMP3M #### [facility] [address] [place] [address] Platelet mean volume (Bld) [Entitic vol] 6.1 fL Low 7.4-10.4 [facility] Comment on above: Performed By: #### H EMDF, LIPA4, LACTS, CMP3M #### [facility] [address] [place] [address] Platelets (Bld) [#/Vol] 326 10*3/uL Normal 140-440 [facility] Comment on above: Performed By: #### H EMDF, LIPA4, LACTS, CMP3M #### [facility] [address] [place] [address] RBC (Bld) [#/Vol] 3.02 10*6/uL Low 3.80-5.20 [facility] Comment on above: Performed By: #### H EMDF, LIPA4, LACTS, CMP3M #### [facility] [address] [place] [address] WBC (Bld) [#/Vol] 5.5 10*3/uL Normal 3.6-10.7 [facility] Comment on above: Performed By: #### H EMDF, LIPA4, LACTS, CMP3M #### [facility] [address] [place] [address] Manual Diffon 10-10-2021 Abs Baso Cnt 0.1 10*3/uL Normal 0.0-0.2 [facility] Comment on above: Performed By: #### H EMDF, LIPA4, LACTS, CMP3M #### [facility] [address] [place] [address] Abs Eosin Cnt 0.1 10*3/uL Normal 0.0-0.5 [facility] Comment on above: Performed By: #### H EMDF, LIPA4, LACTS, CMP3M #### [facility] [address] [place] [address] Abs Lymph Cnt 1.1 10*3/uL Normal 1.1-4.5 [facility] Comment on above: Performed By: #### H EMDF, LIPA4, LACTS, CMP3M #### [facility] [address] [place] [address] Abs Monocyte Cnt 0.3 10*3/uL Normal 0.2-1.1 [facility] Comment on above: Performed By: #### H EMDF, LIPA4, LACTS, CMP3M #### [facility] [address] [place] [address] Abs Neutrophile Cnt 3.8 10*3/uL Normal 2.2-8.2 [facility] Comment on above: Performed By: #### H EMDF, LIPA4, LACTS, CMP3M #### [facility] [address] [place] [address] Anisocytosis Slight Normal [facility] Comment on above: Performed By: #### H EMDF, LIPA4, LACTS, CMP3M #### [facility] [address] [place] [address] Basophils 1 % Normal 0-2 [facility] Comment on above: Performed By: #### H EMDF, LIPA4, LACTS, CMP3M #### [facility] [address] [place] [address] Eosinophils 1 % Normal 1-6 [facility] Comment on above: Performed By: #### H EMDF, LIPA4, LACTS, CMP3M #### [facility] [address] [place] [address] Lymphocytes 20 % Normal 20-40 [facility] Comment on above: Performed By: #### H EMDF, LIPA4, LACTS, CMP3M #### [facility] [address] [place] [address] Metamyelocytes 3 % Abnormal <1 [facility] Comment on above: Performed By: #### H EMDF, LIPA4, LACTS, CMP3M #### [facility] [address] [place] [address] Monocytes 5 % Normal 2-10 [facility] Comment on above: Performed By: #### H EMDF, LIPA4, LACTS, CMP3M #### [facility] [address] [place] [address] Myelocytes 1 % Abnormal <1 [facility] Comment on above: Performed By: #### H EMDF, LIPA4, LACTS, CMP3M #### [facility] [address] [place] [address] Ovalocytes Slight Normal [facility] Comment on above: Performed By: #### H EMDF, LIPA4, LACTS, CMP3M #### [facility] [address] [place] [address] Poikilocytosis Slight Normal [facility] Comment on above: Performed By: #### H EMDF, LIPA4, LACTS, CMP3M #### [facility] [address] [place] [address] Polychromasia Slight Normal [facility] Comment on above: Performed By: #### H EMDF, LIPA4, LACTS, CMP3M #### [facility] [address] [place] [address] RBC Morphology ABNORMAL Normal [facility] Comment on above: Performed By: #### H EMDF, LIPA4, LACTS, CMP3M #### [facility] [address] [place] [address] Seg Neutrophils 69 % Normal 40-80 [facility] Comment on above: Performed By: #### H EMDF, LIPA4, LACTS, CMP3M #### [facility] [address] [place] [address] Bands 0 % Normal 0-3 [facility] Comment on above: Performed By: #### H EMDF, LIPA4, LACTS, CMP3M #### [facility] [address] [place] [address] Cells counted 100 Normal [facility] Comment on above: Performed By: #### H EMDF, LIPA4, LACTS, CMP3M #### [facility] [address] [place] [place] [address] Manual Differentialon 2020 Absolute Baso # 0.1 10*3/uL 0.0 - 0.2 10*3/uL [facility] Absolute Eos # 0.1 10*3/uL 0.0 - 0.5 10*3/uL [facility] Absolute Lymph # 1.1 10*3/uL 1.1 - 4.5 10*3/uL [facility] Absolute [place] # 0.3 10*3/uL 0.2 - 1.1 10*3/uL [...] 80 % [facility] TOTAL CELLS COUNTED 100 [facility] Glucoseon 10-10-2021 Glucose [Mass/Vol] 166 mg/dL High 70 - 100 mg/dL [facility] Interpretation and review of laboratory results Abnormal [facility] Glucose [Mass/Vol] 261 mg/dL High 70 - 100 mg/dL [facility] Interpretation and review of laboratory results Abnormal [facility] Glucose [Mass/Vol] 231 mg/dL High 70 - 100 mg/dL [facility] Interpretation and review of laboratory results Abnormal [facility] Glucose [Mass/Vol] 184 mg/dL High 70 - 100 mg/dL [facility] Interpretation and review of laboratory results Abnormal [facility] Basic Metabolic Panelon 12-1 -2020 Anion gap [Moles/Vol] 4 mmol/L Normal 3-13 [facility] Comment on above: Performed By: #### L ACTS #### [facility] [address] [place] [address] Calcium [Mass/Vol] 9.3 mg/dL Normal 8.4-10.4 [facility] Comment on above: Performed By: #### L ACTS #### [facility] [address] [place] [address] CO2 [Moles/Vol] 29 mmol/L Normal 22-30 [facility] Comment on above: Performed By: #### L ACTS #### [facility] [address] [place] [address] Glucose [Mass/Vol] 143 mg/dL High 70-100 [facility] Comment on above: Performed By: #### L ACTS #### [facility] [address] [place] [address] Urea nitrogen [Mass/Vol] 34 mg/dL High 9-20 [facility] Comment on above: Performed By: #### L ACTS #### [facility] [address] [place] [address] Creatinine [Mass/Vol] 1.48 mg/dL High 0.52-1.25 [facility] Comment on above: Performed By: #### L ACTS #### [facility] [address] [place] [address] GFR/1.73 sq M.predicted among blacks MDRD (S/P/Bld) [Vol rate/Area] 42.9 mL/min/{1.73_m2} Abnormal >60 [facility] Comment on above: Performed By: #### L ACTS #### [facility] [address] [place] [address] GFR/1.73 sq M.predicted among non-blacks MDRD (S/P/Bld) [Vol rate/Area] 37.0 mL/min/{1.73_m2} Abnormal >60 [facility] Comment on above: Result Comment: KDIG [...] secretion. Performed By: #### L ACTS #### [facility] [address] [place] [address] Potassium [Moles/Vol] 5.2 mmol/L High 3.5-5.1 [facility] Comment on above: Performed By: #### L ACTS #### [facility] [address] [place] [address] Sodium [Moles/Vol] 140 mmol/L Normal 135-145 [facility] Comment on above: Performed By: #### L ACTS #### [facility] [address] [place] [place] [address] Chloride [Moles/Vol] 106 mmol/L Normal 98-107 [facility] Comment on above: Performed By: #### L ACTS #### [facility] [address] [place] [address] Basic Metabolic Panel w/ Ref aidan to MGon 10-09-2021 Anion gap [Moles/Vol] 4 mmol/L 3 - 13 mmol/L [facility] Calcium [Mass/Vol] 9.3 mg/dL 8.4 - 10. 4 mg/dL [facility] Chloride [Moles/Vol] 106 mmol/L 98 - 10 7 mmol/L [facility] CO2 [Moles/Vol] 29 mmol/L 22 - 30 mmol/L [facility] Creatinine [Mass/Vol] 1.48 mg/dL High 0.52 - 1.25 mg/dL [facility] EGFR IF NonAfrican Dominican 37.0 mL/min Abnormal >60 [facility] GFR/1.73 sq [...] 34 mg/dL High 9 - 20 mg/dL [facility] CBC Auto Differentialon 09-28 Hematocrit [...] 10-09-2021 Glucose [Mass/Vol] 230 mg/dL High 70-100 [facility] Comment on above: Result Comment: Test performed by glucose meter. Results may be 10%-15% lower than serum/plasma values. (CLIA ID [id number]) Performed By: #### L ACTS #### [facility] [address] [place] [address] Glucose [Mass/Vol] 123 mg/dL High 70-100 [facility] Comment on above: Result Comment: Test performed by glucose meter. Results may be 10%-15% lower than serum/plasma values. (CLIA ID [id number]) Performed By: #### L ACTS #### [facility] [address] [place] [address] Glucose [Mass/Vol] 171 mg/dL High 70-100 [facility] Comment on above: Result Comment: Test performed by glucose meter. Results may be 10%-15% lower than serum/plasma values. (CLIA ID [id number]) Performed By: #### L ACTS #### [facility] [address] [place] [address] Glucose [Mass/Vol] 156 mg/dL High 70-100 [facility] Comment on above: Result Comment: Test performed by glucose meter. Results may be 10%-15% lower than serum/plasma values. (CLIA ID [id number]) Performed By: #### B GLU #### [facility] [address] [place] [address] Hemogram w/ Autodiffon 10-09 Erythrocyte distribution width (RBC) [Ratio] 16.0 % High 11.5-14.5 [facility] Comment on above: Performed By: #### L ACTS #### [facility] [address] [place] [address] Hematocrit (Bld) [Volume fraction] 27.0 % Low 35.0-47.0 [facility] Comment on above: Performed By: #### L ACTS #### [facility] [address] [place] [address] Hemoglobin (Bld) [Mass/Vol] 8.8 g/dL Low 11.7-16.0 [facility] Comment on above: Performed By: #### L ACTS #### [facility] [address] [place] [address] MCH (RBC) [Entitic mass] 27.2 pg Normal 26.0-34.0 [facility] Comment on above: Performed By: #### L ACTS #### [facility] [address] [place] [address] MCHC 32.4 % Normal 32.0-36.0 [facility] Comment on above: Performed By: #### L ACTS #### [facility] [address] [place] [address] MCV (RBC) [Entitic vol] 83.9 fL Normal 79.0-98.0 [facility] Comment on above: Performed By: #### L ACTS #### [facility] [address] [place] [address] Platelet mean volume (Bld) [Entitic vol] 6.5 fL Low 7.4-10.4 [facility] Comment on above: Performed By: #### L ACTS #### [facility] [address] [place] [address] Platelets (Bld) [#/Vol] 335 10*3/uL Normal 140-440 [facility] Comment on above: Performed By: #### L ACTS #### [facility] [address] [place] [address] RBC (Bld) [#/Vol] 3.22 10*6/uL Low 3.80-5.20 [facility] Comment on above: Performed By: #### L ACTS #### [facility] [address] [place] [address] WBC (Bld) [#/Vol] 10.6 10*3/uL Normal 3.6-10.7 [facility] Comment on above: Performed By: #### L ACTS #### [facility] [address] [place] [address] Manual Diffon 10-09-2021 Abs Eosin Cnt 0.3 10*3/uL Normal 0.0-0.5 [facility] Comment on above: Performed By: #### L ACTS #### [facility] [address] [place] [address] Abs Lymph Cnt 2.2 10*3/uL Normal 1.1-4.5 [facility] Comment on above: Performed By: #### L ACTS #### [facility] [address] [place] [address] Abs Monocyte Cnt 0.4 10*3/uL Normal 0.2-1.1 [facility] Comment on above: Performed By: #### L ACTS #### [facility] [address] [place] [address] Abs Neutrophile Cnt 6.9 10*3/uL Normal 2.2-8.2 [facility] Comment on above: Performed By: #### L ACTS #### [facility] [address] [place] [address] Anisocytosis Slight Normal [facility] Comment on above: Performed By: #### L ACTS #### [facility] [address] [place] [address] Bands 3 % Normal 0-3 [facility] Comment on above: Performed By: #### L ACTS #### [facility] [address] [place] [address] Elliptocytes Slight Normal [facility] Comment on above: Performed By: #### L ACTS #### [facility] [address] [place] [address] Eosinophils 3 % Normal 1-6 [facility] Comment on above: Performed By: #### L ACTS #### [facility] [address] [place] [address] Hypochromia Slight Normal [facility] Comment on above: Performed By: #### L ACTS #### [facility] [address] [place] [address] Lymphocytes 21 % Normal 20-40 [facility] Comment on above: Performed By: #### L ACTS #### [facility] [address] [place] [address] Metamyelocytes 4 % Abnormal <1 [facility] Comment on above: Performed By: #### L ACTS #### [facility] [address] [place] [address] Monocytes 4 % Normal 2-10 [facility] Comment on above: Performed By: #### L ACTS #### [facility] [address] [place] [address] Myelocytes 3 % Abnormal <1 [facility] Comment on above: Performed By: #### L ACTS #### [facility] [address] [place] [address] Ovalocytes Slight Normal [facility] Comment on above: Performed By: #### L ACTS #### [facility] [address] [place] [address] Poikilocytosis Slight Normal [facility] Comment on above: Performed By: #### L ACTS #### [facility] [address] [place] [address] Polychromasia Slight Normal [facility] Comment on above: Performed By: #### L ACTS #### [facility] [address] [place] [address] RBC Morphology ABNORMAL Normal [facility] Comment on above: Performed By: #### L ACTS #### [facility] [address] [place] [address] Seg Neutrophils 62 % Normal 40-80 [facility] Comment on above: Performed By: #### L ACTS #### [facility] [address] [place] [address] Abs Baso Cnt 0.0 10*3/uL Normal 0.0-0.2 [facility] Comment on above: Performed By: #### L ACTS #### [facility] [address] [place] [address] Basophils 0 % Normal 0-2 [facility] Comment on above: Performed By: #### L ACTS #### [facility] [address] [place] [address] Cells counted 100 Normal [facility] Comment on above: Performed By: #### L ACTS #### [facility] [address] [place] [address] Manual Differentialon 2020 Absolute Baso # 0.0 10*3/uL 0.0 - 0.2 10*3/uL [facility] Absolute Eos # 0.3 10*3/uL 0.0 - 0.5 10*3/uL [facility] Absolute Lymph # 2.2 10*3/uL 1.1 - 4.5 10*3/uL [facility] Absolute [place] # 0.4 10*3/uL 0.2 - 1.1 10*3/uL [...] Interpretation and review of laboratory results Abnormal [facility] Glucoseon 10-09-2021 Glucose [Mass/Vol] 228 mg/dL High 70 - 100 mg/dL [facility] Interpretation and review of laboratory results Abnormal [facility] Glucose [Mass/Vol] 230 mg/dL High 70 - 100 mg/dL [facility] Interpretation and review of laboratory results Abnormal [facility] Glucose [Mass/Vol] 123 mg/dL High 70 - 100 mg/dL [facility] Interpretation and review of laboratory results Abnormal [facility] Glucose [Mass/Vol] 171 mg/dL High 70 - 100 mg/dL [facility] Interpretation and review of laboratory results Abnormal [facility] Glucose [Mass/Vol] 156 mg/dL High 70 - 100 mg/dL [facility] Interpretation and review of laboratory results Abnormal [facility] Add On Lab Teston 10-08-2021 Add On Accepted [facility] Add on test from HISon 10-08 Add on test from HIS Accepted Normal [facility] Comment on above: Result Comment: Spec imen available & acceptable for analysis. Performed By: #### L ACTS #### [facility] [address] [place] [address] Basic Metabolic Panelon 09-28 Calcium [Mass/Vol] 8.8 mg/dL Normal 8.4-10.4 [facility] Comment on above: Performed By: #### H EMDF, LIPA4, LACTS, CMP3M #### [facility] [address] [place] [address] Glucose [Mass/Vol] 136 mg/dL High 70-100 [facility] Comment on above: Performed By: #### H EMDF, LIPA4, LACTS, CMP3M #### [facility] [address] [place] [address] Urea nitrogen [Mass/Vol] 35 mg/dL High 9-20 [facility] Comment on above: Performed By: #### H EMDF, LIPA4, LACTS, CMP3M #### [facility] [address] [place] [address] Anion gap [Moles/Vol] 2 mmol/L Low 3-13 [facility] Comment on above: Performed By: #### H EMDF, LIPA4, LACTS, CMP3M #### [facility] [address] [place] [address] CO2 [Moles/Vol] 29 mmol/L Normal 22-30 [facility] Comment on above: Performed By: #### H EMDF, LIPA4, LACTS, CMP3M #### [facility] [address] [place] [address] Creatinine [Mass/Vol] 1.65 mg/dL High 0.52-1.25 [facility] Comment on above: Performed By: #### H EMDF, LIPA4, LACTS, CMP3M #### [facility] [address] [place] [address] GFR/1.73 sq M.predicted among blacks MDRD (S/P/Bld) [Vol rate/Area] 37.6 mL/min/{1.73_m2} Abnormal >60 [facility] Comment on above: Performed By: #### H EMDF, LIPA4, LACTS, CMP3M #### [facility] [address] [place] [address] GFR/1.73 sq M.predicted among non-blacks MDRD (S/P/Bld) [Vol rate/Area] 32.4 mL/min/{1.73_m2} Abnormal >60 [facility] Comment on above: Result Comment: KDIG [...] #### H EMDF, LIPA4, LACTS, CMP3M #### [facility] [address] [place] [address] Potassium [Moles/Vol] 5.0 mmol/L Normal 3.5-5.1 [facility] Comment on above: Performed By: #### H EMDF, LIPA4, LACTS, CMP3M #### [facility] [address] [place] [address] Sodium [Moles/Vol] 135 mmol/L Normal 135-145 [facility] Comment on above: Performed By: #### H EMDF, LIPA4, LACTS, CMP3M #### [facility] [address] [place] [address] Chloride [Moles/Vol] 105 mmol/L Normal 98-107 [facility] Comment on above: Performed By: #### H EMDF, LIPA4, LACTS, CMP3M #### [facility] [address] [place] [address] Basic Metabolic Panel w/ Ref aidan to MGon 10-08-2021 Anion gap [Moles/Vol] 2 mmol/L Low 3 - 13 mmol/L [facility] Calcium [Mass/Vol] 8.8 mg/dL 8.4 - 10. 4 mg/dL [facility] Chloride [Moles/Vol] 105 mmol/L 98 - 10 7 mmol/L [facility] CO2 [Moles/Vol] 29 mmol/L 22 - 30 mmol/L [facility] Creatinine [Mass/Vol] 1.65 mg/dL High 0.52 - 1.25 mg/dL [facility] EGFR IF NonAfrican [place] 32.4 mL/min Abnormal >60 [facility] GFR/1.73 sq M.predicted among blacks MDRD (S/P/Bld) [Vol rate/Area] 37.6 mL/min/{1.73_m2} Abnormal >60 [facility] Glucose [Mass/Vol] 136 mg/dL High 70 - 100 mg/dL [facility] Interpretation and review of laboratory results Abnormal [facility] Potassium [Moles/Vol] 5.0 mmol/L 3.5 - 5.1 mmol/L [facility] Sodium [Moles/Vol] 135 mmol/L 135 - 145 mmol/L [facility] Urea nitrogen (BldV) [Mass/Vol] 35 mg/dL High 9 - 20 mg/dL [facility] CBC Auto Differentialon 09-28 Hematocrit (Bld) [Volume fraction] 25.3 % Low 35.0 - 47.0 % [facility] Hemoglobin.gastrointest inal spec 1 Ql (Stl) 8.1 g/dL Low 11.7 - 16.0 g/dL [facility] Interpretation and review of laboratory results [...] 6.6 fL Low 7.4 - 10.4 fL [facility] Platelets (Bld) [#/Vol] 292 10*3/uL 140 - 440 10*3/uL [facility] RBC (Bld) [#/Vol] 3.03 10*6/uL Low 3.80 - 5.2 0 10*6/uL [facility] WBC (Bld) [#/Vol] 9.9 10*3/uL 3.6 - 10.7 10*3/uL [facility] Glucose,Bedsideon 10-08-2021 Glucose [Mass/Vol] 186 mg/dL High 70-100 [facility] Comment on above: Result Comment: Test performed by glucose meter. Results may be 10%-15% lower than serum/plasma values. (CLIA ID [id number]) Performed By: #### L ACTS #### [facility] [address] [place] [address] Glucose [Mass/Vol] 103 mg/dL High 70-100 [facility] Comment on above: Result Comment: Test performed by glucose meter. Results may be 10%-15% lower than serum/plasma values. (CLIA ID [id number]) Performed By: #### L ACTS #### [facility] [address] [place] [address] Glucose [Mass/Vol] 155 mg/dL High 70-[address] [place] [address] Comment on above: Result Comment: Test performed by glucose meter. Results may be 10%-15% lower than serum/plasma values. (CLIA ID [id number]) Performed By: #### L ACTS #### [facility] [address] [place] [address] Glucose [Mass/Vol] 114 mg/dL High 70-100 [facility] Comment on above: Result Comment: Test performed by glucose meter. Results may be 10%-15% lower than serum/plasma values. (CLIA ID [id number]) Performed By: #### B GLU #### [facility] [address] [place] [address] Hemogram w/ Autodiffon 10-08 Erythrocyte distribution width (RBC) [Ratio] 16.0 % High 11.5-14.5 [facility] Comment on above: Performed By: #### H EMDF, LIPA4, LACTS, CMP3M #### [facility] [address] [place] [address] Hematocrit (Bld) [Volume fraction] 25.3 % Low 35.0-47.0 [facility] Comment on above: Performed By: #### H EMDF, LIPA4, LACTS, CMP3M #### [facility] [address] [place] [address] Hemoglobin (Bld) [Mass/Vol] 8.1 g/dL Low 11.7-16.0 [facility] Comment on above: Performed By: #### H EMDF, LIPA4, LACTS, CMP3M #### [facility] [address] [place] [address] MCH (RBC) [Entitic mass] 26.7 pg Normal 26.0-34.0 [facility] Comment on above: Performed By: #### H EMDF, LIPA4, LACTS, CMP3M #### [facility] [address] [place] [address] MCHC 32.0 % Normal 32.0-36.0 [facility] Comment on above: Performed By: #### H EMDF, LIPA4, LACTS, CMP3M #### [facility] [address] [place] [address] MCV (RBC) [Entitic vol] 83.4 fL Normal 79.0-98.0 [facility] Comment on above: Performed By: #### H EMDF, LIPA4, LACTS, CMP3M #### [facility] [address] [place] [address] Platelet mean volume (Bld) [Entitic vol] 6.6 fL Low 7.4-10.4 [facility] Comment on above: Performed By: #### H EMDF, LIPA4, LACTS, CMP3M #### [facility] [address] [place] [address] Platelets (Bld) [#/Vol] 292 10*3/uL Normal 140-440 [facility] Comment on above: Performed By: #### H EMDF, LIPA4, LACTS, CMP3M #### [facility] [address] [place] [address] RBC (Bld) [#/Vol] 3.03 10*6/uL Low 3.80-5.20 [facility] Comment on above: Performed By: #### H EMDF, LIPA4, LACTS, CMP3M #### [facility] [address] [place] [address] WBC (Bld) [#/Vol] 9.9 10*3/uL Normal 3.6-10.7 [facility] Comment on above: Performed By: #### H EMDF, LIPA4, LACTS, CMP3M #### [facility] [address] [place] [address] Manual Diffon 10-08-2021 Abs Baso Cnt 0.0 10*3/uL Normal 0.0-0.2 [facility] Comment on above: Performed By: #### H EMDF, LIPA4, LACTS, CMP3M #### [place] [address] [place] [address] Abs Eosin Cnt 0.3 10*3/uL Normal 0.0-0.5 [facility] Comment on above: Performed By: #### H EMDF, LIPA4, LACTS, CMP3M #### [place] [address] [place] [address] Abs Lymph Cnt 1.2 10*3/uL Normal 1.1-4.5 [facility] Comment on above: Performed By: #### H EMDF, LIPA4, LACTS, CMP3M #### [facility] [address] [place] [address] Abs Monocyte Cnt 0.2 10*3/uL Normal 0.2-1.1 [facility] Comment on above: Performed By: #### H EMDF, LIPA4, LACTS, CMP3M #### [facility] [address] [place] [address] Abs Neutrophile Cnt 7.3 10*3/uL Normal 2.2-8.2 [facility] Comment on above: Performed By: #### H EMDF, LIPA4, LACTS, CMP3M #### [facility] [address] [place] [address] Anisocytosis Slight Normal [facility] Comment on above: Performed By: #### H EMDF, LIPA4, LACTS, CMP3M #### [facility] [address] [place] [address] Bands 1 % Normal 0-3 [facility] Comment on above: Performed By: #### H EMDF, LIPA4, LACTS, CMP3M #### [facility] [address] [place] [address] Basophils 0 % Normal 0-2 [facility] Comment on above: Performed By: #### H EMDF, LIPA4, LACTS, CMP3M #### [facility] [address] [place] [address] [place] Cells Slight Normal [facility] Comment on above: Performed By: #### H EMDF, LIPA4, LACTS, CMP3M #### [facility] [address] [place] [address] Cells counted 100 Normal [facility] Comment on above: Performed By: #### H EMDF, LIPA4, LACTS, CMP3M #### [facility] [address] [place] [address] Elliptocytes Slight Normal [facility] Comment on above: Performed By: #### H EMDF, LIPA4, LACTS, CMP3M #### [facility] [address] [place] [address] Eosinophils 3 % Normal 1-6 [facility] Comment on above: Performed By: #### H EMDF, LIPA4, LACTS, CMP3M #### [facility] [address] [place] [address] Hypochromia Slight Normal [facility] Comment on above: Performed By: #### H EMDF, LIPA4, LACTS, CMP3M #### [facility] [address] [place] [address] Lymphocytes 12 % Low 20-40 [facility] Comment on above: Performed By: #### H EMDF, LIPA4, LACTS, CMP3M #### [facility] [address] [place] [address] Metamyelocytes 7 % Abnormal <[address] [facility] Comment on above: Performed By: #### H EMDF, LIPA4, LACTS, CMP3M #### [facility] [address] [place] [address] Monocytes 2 % Normal 2-10 [facility] Comment on above: Performed By: #### H EMDF, LIPA4, LACTS, CMP3M #### [facility] [address] [place] [address] Myelocytes 2 % Abnormal <1 [facility] Comment on above: Performed By: #### H EMDF, LIPA4, LACTS, CMP3M #### [facility] [address] [place] [address] Ovalocytes Slight Normal [facility] Comment on above: Performed By: #### H EMDF, LIPA4, LACTS, CMP3M #### [facility] [address] [place] [address] Poikilocytosis Slight Normal [facility] Comment on above: Performed By: #### H EMDF, LIPA4, LACTS, CMP3M #### [facility] [address] [place] [address] RBC Morphology ABNORMAL Normal [facility] Comment on above: Performed By: #### H EMDF, LIPA4, LACTS, CMP3M #### [facility] [address] [place] [address] Seg Neutrophils 73 % Normal 40-80 [facility] Comment on above: Performed By: #### H EMDF, LIPA4, LACTS, CMP3M #### [facility] [address] [place] [address] Manual Differentialon 2020 Absolute Baso # 0.0 10*3/uL 0.0 - 0.2 10*3/uL [facility] Absolute Eos # 0.3 10*3/uL 0.0 - 0.5 10*3/uL [facility] Absolute Lymph # 1.2 10*3/uL 1.1 - 4.5 10*3/uL [facility] Absolute [place] # 0.2 10*3/uL 0.2 - 1.1 10*3/uL [facility] Absolute Neut # 7.3 10*3/uL 2.2 - 8.2 10*3/uL [facility] Anisocytosis Slight [facility] Bands 1 % 0 - 3 % [facility] Basophils/100 WBC (Bld) 0 % 0 - 2 % S [facility] [place] Cells Slight [facility] Elliptocytes Slight [facility] Eosinophils/100 [...] 80 % [facility] TOTAL CELLS COUNTED 100 [facility] POCT Glucoseon 10-08-2021 Glucose [Mass/Vol] 186 mg/dL High 70 - 100 mg/dL [facility] Interpretation and review of laboratory results Abnormal [facility] Glucose [Mass/Vol] 103 mg/dL High 70 - 100 mg/dL [facility] Work Phone: [phone] Interpretation and review of laboratory results Abnormal [facility] Work Phone: [phone] [facility] Work Phone: [phone] Glucose [Mass/Vol] 155 mg/dL High 70 - 100 mg/dL [facility] Interpretation and review of laboratory results Abnormal [facility] Glucose [Mass/Vol] 114 mg/dL High 70 - 100 mg/dL [facility] Work Phone: Interpretation and review of laboratory results Abnormal [facility] Work Phone: [phone] [facility] Work Phone: [phone] TSH without Reflexon 021 Interpretation and review of laboratory results Abnormal [facility] TSH Qn 7.319 u[IU]/mL High 0.465 - 4.680 u[IU]/mL [facility] Thyroid Stim. Hormoneon 09-28 Thyroid Stim. Hormone 7.319 u[IU]/mL High 0.465-4.68 0 [facility] Comment on above: Performed By: #### H EMDF, LIPA4, LACTS, CMP3M #### [facility] [address] [place] [address] Basic Metabolic Panelon 09-28 Anion gap [Moles/Vol] 2 mmol/L Low 3-13 [facility] Comment on above: Performed By: #### H EMDF, LIPA4, LACTS, CMP3M #### [facility] [address] [place] [address] Calcium [Mass/Vol] 9.1 mg/dL Normal 8.4-10.4 [facility] Comment on above: Performed By: #### H EMDF, LIPA4, LACTS, CMP3M #### [facility] [address] [place] [address] CO2 [Moles/Vol] 28 mmol/L Normal 22-30 [facility] Comment on above: Performed By: #### H EMDF, LIPA4, LACTS, CMP3M #### [facility] [address] [place] [address] Creatinine [Mass/Vol] 1.84 mg/dL High 0.52-1.25 [facility] Comment on above: Performed By: #### H EMDF, LIPA4, LACTS, CMP3M #### [facility] [address] [place] [address] GFR/1.73 sq M.predicted among blacks MDRD (S/P/Bld) [Vol rate/Area] 33.0 mL/min/{1.73_m2} Abnormal >60 [facility] Comment on above: Performed By: #### H EMDF, LIPA4, LACTS, CMP3M #### [facility] [address] [place] [address] GFR/1.73 sq M.predicted among non-blacks MDRD (S/P/Bld) [Vol rate/Area] 28.4 mL/min/{1.73_m2} Abnormal >60 [facility] Comment on above: Result Comment: KDIG [...] #### H EMDF, LIPA4, LACTS, CMP3M #### [facility] [address] [place] [address] Glucose [Mass/Vol] 80 mg/dL Normal 70-100 [facility] Comment on above: Performed By: #### H EMDF, LIPA4, LACTS, CMP3M #### [facility] [address] [place] [address] Urea nitrogen [Mass/Vol] 37 mg/dL High 9-20 [facility] Comment on above: Performed By: #### H EMDF, LIPA4, LACTS, CMP3M #### [facility] [address] [place] [address] Chloride [Moles/Vol] 107 mmol/L Normal 98-107 [facility] Comment on above: Performed By: #### H EMDF, LIPA4, LACTS, CMP3M #### [facility] [address] [place] [address] Potassium [Moles/Vol] 4.8 mmol/L Normal 3.5-5.1 [facility] Comment on above: Performed By: #### H EMDF, LIPA4, LACTS, CMP3M #### [facility] [address] [place] [address] Sodium [Moles/Vol] 138 mmol/L Normal 135-145 [facility] Comment on above: Performed By: #### H EMDF, LIPA4, LACTS, CMP3M #### [facility] [address] [place] [address] Basic Metabolic Panel w/ Ref aidan to MGon 10-07-2021 Anion gap [Moles/Vol] 2 mmol/L Low 3 - 13 mmol/L [facility] Calcium [Mass/Vol] 9.1 mg/dL 8.4 - 10. 4 mg/dL [facility] Chloride [Moles/Vol] 107 mmol/L 98 - 10 7 mmol/L [facility] CO2 [Moles/Vol] 28 mmol/L 22 - 30 mmol/L [facility] Creatinine [Mass/Vol] 1.84 mg/dL High 0.52 - 1.25 mg/dL [facility] EGFR IF NonAfrican Dominican 28.4 mL/min Abnormal >60 [facility] GFR/1.73 sq M.predicted among blacks MDRD (S/P/Bld) [Vol rate/Area] 33.0 mL/min/{1.73_m2} Abnormal >60 [facility] Glucose [Mass/Vol] 80 mg/dL 70 - 100 mg/dL [facility] Interpretation and review of laboratory results Abnormal [facility] Potassium [Moles/Vol] 4.8 mmol/L 3.5 - 5.1 mmol/L [facility] Sodium [Moles/Vol] 138 mmol/L 135 - 145 mmol/L [facility] Urea nitrogen (BldV) [Mass/Vol] 37 mg/dL High 9 - 20 mg/dL [facility] CBC Auto Differentialon 09-28 Hematocrit (Bld) [Volume [...] Radiology ACCESSION EXAM DATE/TIME PROCEDURE ORDERING PROVIDER [id number] 10/07/2021 15:27 EST CR Chest PA and LAT 58SANIYA RENDON CPT code 01385 Reason For Exam (CR Chest PA and [...] Transcribed Date and Time: 10/07/2021 3:33 Normal [facility] CULTURE BLOOD (Two)on 2020 Microscopic examination of blood, culture CULTURE BLOOD (Two) --> Status: F No growth at 5 days. Normal [facility] Comment on above: Performed By: #### L ACTS #### [facility] [address] [place] [address] Chloride, Random Urineon Chloride 58 mmol/L 19 - 209 mmol/L [facility] Work Phone: Chloride, Ur Randomon 2020 Chloride [Moles/Vol] 58 mmol/L Normal 19-209 [facility] Comment on above: Performed By: #### L ACTS #### [facility] [address] [place] [address] Creatinine, Random Urineon 1 12-08-2020 Creatinine (U) [Mass/Vol] 91.1 mg/dL No Range [facility] Work Phone: Creatinine, Ur Randomon 12- Creatinine, Ur Random 91.1 mg/dL Normal No Range [facility] Comment on above: Performed By: #### L ACTS #### [facility] [address] [place] [address] Culture, Blood 2on Blood Culture, Routine No growth at 5 days. [facility] Work Phone: [facility] Work Phone: Glucose,Bedsideon 10-07-2021 Glucose [Mass/Vol] 194 mg/dL High 70-100 [facility] Comment on above: Result Comment: Test performed by glucose meter. Results may be 10%-15% lower than serum/plasma values. (CLIA ID [id number]) Performed By: #### H EMDF, LIPA4, LACTS, CMP3M #### [facility] [address] [place] [address] Glucose [Mass/Vol] 132 mg/dL High 70-100 [facility] Comment on above: Result Comment: Test performed by glucose meter. Results may be 10%-15% lower than serum/plasma values. (CLIA ID [id number]) Performed By: #### H EMDF, LIPA4, LACTS, CMP3M #### [facility] [address] [place] [address] Glucose [Mass/Vol] 79 mg/dL Normal 70-100 [facility] Comment on above: Result Comment: Test performed by glucose meter. Results may be 10%-15% lower than serum/plasma values. (CLIA ID [id number]) Performed By: #### L ACTS #### [facility] [address] [place] [address] Glucose [Mass/Vol] 112 mg/dL High 70-100 [facility] Comment on above: Result Comment: Test performed by glucose meter. Results may be 10%-15% lower than serum/plasma values. (CLIA ID [id number]) Performed By: #### H EMDF, LIPA4, LACTS, CMP3M #### [facility] [address] [place] [address] Hemogram w/ Autodiffon 10-07 Platelets (Bld) [#/Vol] 236 10*3/uL Normal 140-440 [facility] Comment on above: Result Comment: Occa sional fibrin strands noted on smear, no clot detected in tube, may affect platelet count, suggest repeat draw. Performed By: #### H EMDF, LIPA4, LACTS, CMP3M #### [facility] [address] [place] [address] Erythrocyte distribution width (RBC) [Ratio] 15.9 % High 11.5-14.5 [facility] Comment on above: Performed By: #### H EMDF, LIPA4, LACTS, CMP3M #### [facility] [address] [place] [address] Hematocrit (Bld) [Volume fraction] 25.6 % Low 35.0-47.0 [facility] Comment on above: Performed By: #### H EMDF, LIPA4, LACTS, CMP3M #### [facility] [address] [place] [address] Hemoglobin (Bld) [Mass/Vol] 8.2 g/dL Low 11.7-16.0 [facility] Comment on above: Performed By: #### H EMDF, LIPA4, LACTS, CMP3M #### [facility] [address] [place] [address] MCH (RBC) [Entitic mass] 27.1 pg Normal 26.0-34.0 [facility] Comment on above: Performed By: #### H EMDF, LIPA4, LACTS, CMP3M #### [facility] [address] [place] [address] MCHC 32.2 % Normal 32.0-36.0 [facility] Comment on above: Performed By: #### H EMDF, LIPA4, LACTS, CMP3M #### [facility] [address] [place] [address] MCV (RBC) [Entitic vol] 84.3 fL Normal 79.0-98.0 [facility] Comment on above: Performed By: #### H EMDF, LIPA4, LACTS, CMP3M #### [facility] [address] [place] [address] Platelet mean volume (Bld) [Entitic vol] 7.0 fL Low 7.4-10.4 [facility] Comment on above: Performed By: #### H EMDF, LIPA4, LACTS, CMP3M #### [place] [address] [place] [address] RBC (Bld) [#/Vol] 3.04 10*6/uL Low 3.80-5.20 [facility] Comment on above: Performed By: #### H EMDF, LIPA4, LACTS, CMP3M #### [facility] [address] [place] [address] WBC (Bld) [#/Vol] 12.1 10*3/uL High 3.6-10.7 [facility] Comment on above: Performed By: #### H EMDF, LIPA4, LACTS, CMP3M #### [facility] [address] [place] [address] Manual Diffon 10-07-2021 Abs Baso Cnt 0.1 10*3/uL Normal 0.0-0.2 [facility] Comment on above: Performed By: #### H EMDF, LIPA4, LACTS, CMP3M #### [facility] [address] [place] [address] Abs Eosin Cnt 0.1 10*3/uL Normal 0.0-0.5 [facility] Comment on above: Performed By: #### H EMDF, LIPA4, LACTS, CMP3M #### [facility] [address] [place] [address] Abs Lymph Cnt 1.6 10*3/uL Normal 1.1-4.5 [facility] Comment on above: Performed By: #### H EMDF, LIPA4, LACTS, CMP3M #### [facility] [address] [place] [address] Abs Monocyte Cnt 0.5 10*3/uL Normal 0.2-1.1 [facility] Comment on above: Performed By: #### H EMDF, LIPA4, LACTS, CMP3M #### [facility] [address] [place] [address] Abs Neutrophile Cnt 8.7 10*3/uL High 2.2-8.2 [facility] Comment on above: Performed By: #### H EMDF, LIPA4, LACTS, CMP3M #### [facility] [address] [place] [address] Anisocytosis Slight Normal [facility] Comment on above: Performed By: #### H EMDF, LIPA4, LACTS, CMP3M #### [facility] [address] [place] [address] Bands 1 % Normal 0-3 [facility] Comment on above: Performed By: #### H EMDF, LIPA4, LACTS, CMP3M #### [facility] [address] [place] [address] Basophils 1 % Normal 0-2 [facility] Comment on above: Performed By: #### H EMDF, LIPA4, LACTS, CMP3M #### [facility] [address] [place] [address] [place] Cells Slight Normal [facility] Comment on above: Performed By: #### H EMDF, LIPA4, LACTS, CMP3M #### [facility] [address] [place] [address] Elliptocytes Slight Normal [facility] Comment on above: Performed By: #### H EMDF, LIPA4, LACTS, CMP3M #### [facility] [address] [place] [address] Eosinophils 1 % Normal 1-6 [facility] Comment on above: Performed By: #### H EMDF, LIPA4, LACTS, CMP3M #### [facility] [address] [place] [address] Hypochromia Slight Normal [facility] Comment on above: Performed By: #### H EMDF, LIPA4, LACTS, CMP3M #### [facility] [address] [place] [address] Lymphocytes 13 % Low 20-40 [facility] Comment on above: Performed By: #### H EMDF, LIPA4, LACTS, CMP3M #### [facility] [address] [place] [address] Metamyelocytes 5 % Abnormal <[address] [facility] Comment on above: Performed By: #### H EMDF, LIPA4, LACTS, CMP3M #### [facility] [address] [place] [address] Monocytes 4 % Normal 2-10 [facility] Comment on above: Performed By: #### H EMDF, LIPA4, LACTS, CMP3M #### [facility] [address] [place] [address] Myelocytes 4 % Abnormal <1 [facility] Comment on above: Performed By: #### H EMDF, LIPA4, LACTS, CMP3M #### [facility] [address] [place] [address] Ovalocytes Slight Normal [facility] Comment on above: Performed By: #### H EMDF, LIPA4, LACTS, CMP3M #### [facility] [address] [place] [address] Poikilocytosis Slight Normal [facility] Comment on above: Performed By: #### H EMDF, LIPA4, LACTS, CMP3M #### [facility] [address] [place] [address] Polychromasia Slight Normal [facility] Comment on above: Performed By: #### H EMDF, LIPA4, LACTS, CMP3M #### [facility] [address] [place] [address] RBC Morphology ABNORMAL Normal [facility] Comment on above: Performed By: #### H EMDF, LIPA4, LACTS, CMP3M #### [facility] [address] [place] [address] Seg Neutrophils 71 % Normal 40-80 [facility] Comment on above: Performed By: #### H EMDF, LIPA4, LACTS, CMP3M #### [facility] [address] [place] [address] Cells counted 100 Normal [facility] Comment on above: Performed By: #### H EMDF, LIPA4, LACTS, CMP3M #### [facility] [address] [place] [address] Manual Differentialon 2020 Absolute Baso # 0.1 10*3/uL 0.0 - 0.2 10*3/uL [facility] Absolute Eos # 0.1 10*3/uL 0.0 - 0.5 10*3/uL [facility] Absolute Lymph # 1.6 10*3/uL 1.1 - 4.5 10*3/uL [facility] Absolute [place] # 0.5 10*3/uL 0.2 - 1.1 10*3/uL [facility] Absolute Neut # 8.7 10*3/uL High 2.2 - 8.2 10*3/uL [facility] Anisocytosis Slight [facility] Bands 1 % 0 - 3 % [facility] Basophils/100 WBC (Bld) 1 % 0 - 2 % S [facility] [place] Cells Slight [facility] Elliptocytes Slight [facility] Eosinophils/100 [...] 44 mg/g High 0.0 - 29.9 mg/g [facility] Creatinine (U) [Mass/Vol] 93.5 mg/dL No Range [facility] Interpretation and review of laboratory results Abnormal [facility] Microalbumin/Creat Ratioon 1 12-08-2020 Microalb/Creat Ratio 44.0 mg/g High 0.0-29.9 [facility] Comment on above: Performed By: #### H EMDF, LIPA4, LACTS, CMP3M #### [facility] [address] [place] [address] Microalbumin, Ur 41.1 mg/L High 0.0-29.9 [facility] Comment on above: Result Comment: Micr oalbumin concentrations <30 are considered normal, 30-300 are considered microalbuminuria (or risk of diabetic nephropathy), and >300 are considered clinical albuminuria (clinical nephropathy). Diabetes Care,27, Supplement 1, Y04-05, 2003 Performed By: #### H EMDF, LIPA4, LACTS, CMP3M #### [facility] [address] [place] [address] Creatinine, Ur Random 93.5 mg/dL Normal No Range [facility] Comment on above: Performed By: #### H EMDF, LIPA4, LACTS, CMP3M #### [facility] [address] [place] [address] NM Lung Scan Perfusion Parti culateon 10-07-2021 [facility] Work Phone: [phone] [facility] Work Phone: [phone] [facility] Work Phone: NM Pulmonary Perfusion Imagi ngon 10-07-2021 [facility] Pulmonary Perfusion Imaging Patient Name: KIMBERLY PATEL Nuclear Medicine ACCESSION EXAM DATE/TIME PROCEDURE ORDERING PROVIDER [id number] 10/07/2021 15:47 EST [place] Pulmonary Perfusion 5813 -SANIYA OSHEA Imaging CPT code 33853 Reason For Exam ([place] Pulmonary Perfusion Imaging) [...] Transcribed Date and Time: 10/07/2021 4:42 Normal [facility] No Panel Informationon 10-07 [facility] Interpretation and review of laboratory results Abnormal [facility] No Panel InformationOrdered By: Aj Carl on 10-07-2021 [facility] Osmolality, Urineon 10-07-20 21 Osmolality, Ur 490 mosm/kg 300 - 1000 mosm/kg [facility] Work Phone: [phone] [facility] Work Phone: Osmolality,Urineon Osmolality,Urine 490 mosm/kg Normal 300-1000 [facility] Comment on above: Performed By: #### L ACTS #### [facility] [address] [place] [address] POCT Glucoseon 10-07-2021 Glucose [Mass/Vol] 194 mg/dL High 70 - 100 mg/dL [facility] Interpretation and review of laboratory results Abnormal [facility] Glucose [Mass/Vol] 132 mg/dL High 70 - 100 mg/dL [facility] Work Phone: [phone] Interpretation and review of laboratory results Abnormal [facility] Work Phone: [phone] [facility] Work Phone: Glucose [Mass/Vol] 79 mg/dL 70 - 100 mg/dL [facility] Work Phone: [phone] [facility] Work Phone: [phone] Glucose [Mass/Vol] 112 mg/dL High 70 - 100 mg/dL [facility] Interpretation and review of laboratory results Abnormal [facility] Protein, Ur Randomon 021 Protein, Ur Random 34 mg/dL High No Range [facility] Comment on above: Performed By: #### L ACTS #### [facility] [address] [place] [address] Protein, urine, randomon Interpretation and review of laboratory results Abnormal [facility] Work Phone: [phone] Protein (U) [Mass/Vol] 34 mg/dL High No Range [facility] Work Phone: [phone] Sodium, Ur Randomon 10-07-20 21 Sodium [Moles/Vol] 53 mmol/L Normal 30-90 [facility] Comment on above: Performed By: #### L ACTS #### [facility] [address] [place] [address] Sodium, Urine, RandomOrdered By: Aj Carl on 10-07-2021 Sodium (U) [Moles/Vol] 53 mmol/L 30 - 90 mmol/L [facility] XR CHEST (2 VW)on 10-07-2021 [facility] Work Phone: [phone] Radiology Study observation (narrative) [facility] Work Phone: [phone] XR CHEST (2 VW)Ordered By: Liliana Domínguez on 10-07-2021 [facility] Work Phone: Basic Metabolic Panelon 12-0 Anion gap [Moles/Vol] 4 mmol/L Normal 3-13 [facility] Comment on above: Performed By: #### H EMDF, LIPA4, LACTS, CMP3M #### [facility] [address] [place] [address] Calcium [Mass/Vol] 8.5 mg/dL Normal 8.4-10.4 [facility] Comment on above: Performed By: #### H EMDF, LIPA4, LACTS, CMP3M #### [facility] [address] [place] [address] CO2 [Moles/Vol] 26 mmol/L Normal 22-30 [facility] Comment on above: Performed By: #### H EMDF, LIPA4, LACTS, CMP3M #### [facility] [address] [place] [address] Glucose [Mass/Vol] 131 mg/dL High 70-100 [facility] Comment on above: Performed By: #### H EMDF, LIPA4, LACTS, CMP3M #### [facility] [address] [place] [address] Urea nitrogen [Mass/Vol] 47 mg/dL High 9-20 [facility] Comment on above: Performed By: #### H EMDF, LIPA4, LACTS, CMP3M #### [facility] [address] [place] [address] Creatinine [Mass/Vol] 2.11 mg/dL High 0.52-1.25 [facility] Comment on above: Performed By: #### H EMDF, LIPA4, LACTS, CMP3M #### [facility] [address] [place] [address] GFR/1.73 sq M.predicted among blacks MDRD (S/P/Bld) [Vol rate/Area] 27.9 mL/min/{1.73_m2} Abnormal >60 [facility] Comment on above: Performed By: #### H EMDF, LIPA4, LACTS, CMP3M #### [facility] [address] [place] [address] GFR/1.73 sq M.predicted among non-blacks MDRD (S/P/Bld) [Vol rate/Area] 24.1 mL/min/{1.73_m2} Abnormal >60 [facility] Comment on above: Result Comment: KDIG [...] #### H EMDF, LIPA4, LACTS, CMP3M #### [facility] [address] [place] [address] Potassium [Moles/Vol] 5.1 mmol/L Normal 3.5-5.1 [facility] Comment on above: Performed By: #### H EMDF, LIPA4, LACTS, CMP3M #### [facility] [address] [place] [address] Chloride [Moles/Vol] 108 mmol/L High 98-107 [facility] Comment on above: Performed By: #### H EMDF, LIPA4, LACTS, CMP3M #### [facility] [address] [place] [address] Sodium [Moles/Vol] 138 mmol/L Normal 135-145 [facility] Comment on above: Performed By: #### H EMDF, LIPA4, LACTS, CMP3M #### [facility] [address] [place] [address] Basic Metabolic Panel w/ Ref aidan to MGon 10-06-2021 Anion gap [Moles/Vol] 4 mmol/L 3 - 13 mmol/L [facility] Calcium [Mass/Vol] 8.5 mg/dL 8.4 - 10. 4 mg/dL [facility] Chloride [Moles/Vol] 108 mmol/L High 98 - 10 7 mmol/L [facility] CO2 [Moles/Vol] 26 mmol/L 22 - 30 mmol/L [facility] Creatinine [Mass/Vol] 2.11 mg/dL High 0.52 - 1.25 mg/dL [facility] EGFR IF NonAfrican Dominican 24.1 mL/min Abnormal >60 [facility] GFR/1.73 sq M.predicted among blacks MDRD (S/P/Bld) [Vol rate/Area] 27.9 mL/min/{1.73_m2} Abnormal >60 [facility] Glucose [Mass/Vol] 131 mg/dL High 70 - 100 mg/dL [facility] Interpretation and review of laboratory results Abnormal [facility] Potassium [Moles/Vol] 5.1 mmol/L 3.5 - 5.1 mmol/L [facility] Sodium [Moles/Vol] 138 mmol/L 135 - 145 mmol/L [facility] Urea nitrogen (BldV) [Mass/Vol] 47 mg/dL High 9 - 20 mg/dL [facility] CBC Auto Differentialon Hematocrit (Bld) [Volume fraction] 25.4 % Low 35.0 - 47.0 % [facility] Hemoglobin.gastrointest inal spec 1 Ql (Stl) 8.1 g/dL Low 11.7 - 16.0 g/dL [facility] Interpretation and review of laboratory results Abnormal [...] [#/Vol] 8.8 10*3/uL 3.6 - 10.7 10*3/uL [facility] D-Dimer, Innovanceon 021 D-Dimer, Innovance 1.41 mg/L High <0.19-0.50 [facility] Comment on above: Result Comment: Inno garcia D-Dimer values of <0.50 mg/L FEU can be used in combination with a pre-test probability model (e.g. Well's) to exclude pulmonary embolism (PE) disease, as well as an aid in the diagnosis of deep vein thrombosis (DVT). Performed By: #### H EMDF, LIPA4, LACTS, CMP3M #### [facility] [address] [place] [address] D-Dimer, QuantitativeOrdered By: Teetee Oshea on 10-06-2021 D-Dimer, Quant 1.41 mg/L High <0.19 - 0.50 [facility] Interpretation and review of laboratory results Abnormal [facility] D-Dimer, Quantitativeon 12-0 [facility] Glucose,Bedsideon 10-06-2021 Glucose [Mass/Vol] 149 mg/dL High 70-100 [facility] Comment on above: Result Comment: Test performed by glucose meter. Results may be 10%-15% lower than serum/plasma values. (CLIA ID [id number]) Performed By: #### B GLU #### [facility] [address] [place] [address] Glucose [Mass/Vol] 123 mg/dL High 70-100 [facility] Comment on above: Result Comment: Test performed by glucose meter. Results may be 10%-15% lower than serum/plasma values. (CLIA ID [id number]) Performed By: #### L ACTS #### [facility] [address] [place] [address] Glucose [Mass/Vol] 89 mg/dL Normal 70-100 [facility] Comment on above: Result Comment: Test performed by glucose meter. Results may be 10%-15% lower than serum/plasma values. (CLIA ID [id number]) Performed By: #### L ACTS #### [facility] [address] [place] [address] Glucose [Mass/Vol] 100 mg/dL Normal 70-100 [facility] Comment on above: Result Comment: Test performed by glucose meter. Results may be 10%-15% lower than serum/plasma values. (CLIA ID [id number]) Performed By: #### H EMDF, LIPA4, LACTS, CMP3M #### [facility] [address] [place] [address] Hemogram w/ Autodiffon 10-06 Erythrocyte distribution width (RBC) [Ratio] 16.1 % High 11.5-14.5 [facility] Comment on above: Performed By: #### H EMDF, LIPA4, LACTS, CMP3M #### [facility] [address] [place] [address] Hematocrit (Bld) [Volume fraction] 25.4 % Low 35.0-47.0 [facility] Comment on above: Performed By: #### H EMDF, LIPA4, LACTS, CMP3M #### [facility] [address] [place] [address] Hemoglobin (Bld) [Mass/Vol] 8.1 g/dL Low 11.7-16.0 [facility] Comment on above: Performed By: #### H EMDF, LIPA4, LACTS, CMP3M #### [facility] [address] [place] [address] MCH (RBC) [Entitic mass] 27.1 pg Normal 26.0-34.0 [facility] Comment on above: Performed By: #### H EMDF, LIPA4, LACTS, CMP3M #### [facility] [address] [place] [address] MCHC 32.0 % Normal 32.0-36.0 [facility] Comment on above: Performed By: #### H EMDF, LIPA4, LACTS, CMP3M #### [facility] [address] [place] [address] MCV (RBC) [Entitic vol] 84.7 fL Normal 79.0-98.0 [facility] Comment on above: Performed By: #### H EMDF, LIPA4, LACTS, CMP3M #### [facility] [address] [place] [address] Platelet mean volume (Bld) [Entitic vol] 6.7 fL Low 7.4-10.4 [facility] Comment on above: Performed By: #### H EMDF, LIPA4, LACTS, CMP3M #### [facility] [address] [place] [address] Platelets (Bld) [#/Vol] 187 10*3/uL Normal 140-440 [facility] Comment on above: Performed By: #### H EMDF, LIPA4, LACTS, CMP3M #### [facility] [address] [place] [address] RBC (Bld) [#/Vol] 3.00 10*6/uL Low 3.80-5.20 [facility] Comment on above: Performed By: #### H EMDF, LIPA4, LACTS, CMP3M #### [facility] [address] [place] [address] WBC (Bld) [#/Vol] 8.8 10*3/uL Normal 3.6-10.7 [facility] Comment on above: Performed By: #### H EMDF, LIPA4, LACTS, CMP3M #### [facility] [address] [place] [address] Manual Diffon 10-06-2021 Abs Eosin Cnt 0.1 10*3/uL Normal 0.0-0.5 [facility] Comment on above: Performed By: #### H EMDF, LIPA4, LACTS, CMP3M #### [facility] [address] [place] [address] Abs Lymph Cnt 0.8 10*3/uL Low 1.1-4.5 [facility] Comment on above: Performed By: #### H EMDF, LIPA4, LACTS, CMP3M #### [facility] [address] [place] [address] Abs Monocyte Cnt 0.3 10*3/uL Normal 0.2-1.1 [facility] Comment on above: Performed By: #### H EMDF, LIPA4, LACTS, CMP3M #### [facility] [address] [place] [address] Abs Neutrophile Cnt 7.3 10*3/uL Normal 2.2-8.2 [facility] Comment on above: Performed By: #### H EMDF, LIPA4, LACTS, CMP3M #### [facility] [address] [place] [address] Anisocytosis Slight Normal [facility] Comment on above: Performed By: #### H EMDF, LIPA4, LACTS, CMP3M #### [facility] [address] [place] [address] [place] Cells Slight Normal [facility] Comment on above: Performed By: #### H EMDF, LIPA4, LACTS, CMP3M #### [facility] [address] [place] [address] Elliptocytes Slight Normal [facility] Comment on above: Performed By: #### H EMDF, LIPA4, LACTS, CMP3M #### [facility] [address] [place] [address] Eosinophils 1 % Normal 1-6 [facility] Comment on above: Performed By: #### H EMDF, LIPA4, LACTS, CMP3M #### [facility] [address] [place] [address] Lymphocytes 9 % Low 20-40 [facility] Comment on above: Performed By: #### H EMDF, LIPA4, LACTS, CMP3M #### [facility] [address] [place] [address] Metamyelocytes 3 % Abnormal <1 [facility] Comment on above: Performed By: #### H EMDF, LIPA4, LACTS, CMP3M #### [facility] [address] [place] [address] Monocytes 3 % Normal 2-10 [facility] Comment on above: Performed By: #### H EMDF, LIPA4, LACTS, CMP3M #### [facility] [address] [place] [address] Myelocytes 1 % Abnormal <1 [facility] Comment on above: Performed By: #### H EMDF, LIPA4, LACTS, CMP3M #### [facility] [address] [place] [address] Ovalocytes Slight Normal [facility] Comment on above: Performed By: #### H EMDF, LIPA4, LACTS, CMP3M #### [facility] [address] [place] [address] Poikilocytosis Slight Normal [facility] Comment on above: Performed By: #### H EMDF, LIPA4, LACTS, CMP3M #### [facility] [address] [place] [address] RBC Morphology ABNORMAL Normal [facility] Comment on above: Performed By: #### H EMDF, LIPA4, LACTS, CMP3M #### [facility] [address] [place] [address] Seg Neutrophils 83 % High 40-80 [facility] Comment on above: Performed By: #### H EMDF, LIPA4, LACTS, CMP3M #### [facility] [address] [place] [address] Abs Baso Cnt 0.0 10*3/uL Normal 0.0-0.2 [facility] Comment on above: Performed By: #### H EMDF, LIPA4, LACTS, CMP3M #### [facility] [address] [place] [address] Bands 0 % Normal 0-3 [facility] Comment on above: Performed By: #### H EMDF, LIPA4, LACTS, CMP3M #### [facility] [address] [place] [address] Basophils 0 % Normal 0-2 [facility] Comment on above: Performed By: #### H EMDF, LIPA4, LACTS, CMP3M #### [facility] [address] [place] [address] Cells counted 100 Normal [facility] Comment on above: Performed By: #### H EMDF, LIPA4, LACTS, CMP3M #### [facility] [address] [place] [address] Manual Differentialon 2020 Absolute Baso # 0.0 10*3/uL 0.0 - 0.2 10*3/uL [facility] Absolute Eos # 0.1 10*3/uL 0.0 - 0.5 10*3/uL [facility] Absolute Lymph # 0.8 10*3/uL Low 1.1 - 4.5 10*3/uL [facility] Absolute [place] # 0.3 10*3/uL 0.2 - 1.1 10*3/uL [...] 80 % [facility] TOTAL CELLS COUNTED 100 [facility] [place] Lung Scan Perfusion Parti culateon 10-06-2021 Radiology Study observation (narrative) [facility] Work Phone: POCT Glucoseon 10-06-2021 Glucose [Mass/Vol] 149 mg/dL High 70 - 100 mg/dL [facility] Interpretation and review of laboratory results Abnormal [facility] Glucose [Mass/Vol] 123 mg/dL High 70 - 100 mg/dL [facility] Work Phone: Interpretation and review of laboratory results Abnormal [facility] Work Phone: [facility] Work Phone: Glucose [Mass/Vol] 89 mg/dL 70 - 100 mg/dL [facility] Work Phone: [facility] Work Phone: Glucose [Mass/Vol] 100 mg/dL 70 - 100 mg/dL [facility] Work Phone: [facility] Work Phone: PROCALCITONINon 10-06-2021 Interpretation See Below [facility] Interpretation and review of laboratory results Abnormal [facility] Procalcitonin 9.92 ng/mL High 0.00 - 0.09 ng/mL [facility] Procalcitoninon 10-06-2021 Procalcitonin 9.92 ng/mL High 0.00-0.09 [facility] Comment on above: Performed By: #### H EMDF, LIPA4, LACTS, CMP3M #### [facility] [address] [place] [address] VL LOWER EXTREMITY BILATERAL VENOUS DUPLEXon 10-06-2021 [facility] SB CARDIOLOGY [facility] Work Phone: Radiology Study observation (narrative) [facility] Work Phone: VL LOWER EXTREMITY BILATERAL VENOUS DUPLEXOrdered By: Jose Turcios on 10-06-2021 [facility] Work Phone: VL Venous Duplex US Lower Ex t Bilateralon 10-06-2021 VL Venous Duplex US Lower Ext Bilateral Patient Name: KIMBERLY PATEL Ultrasound ACCESSION EXAM DATE/TIME PROCEDURE ORDERING PROVIDER [id number] 10/06/2021 13:01 EST VL Venous Duplex US 5813 -SANIYA OSHEA Lower Ext Bilateral CPT code 30524 Reason For Exam (VL Venous Duplex US Lower Ext Bilateral) elevated d. dimer, LE swelling Report [facility] -- Lower Extremity Venous Duplex Report Patient Jorge, : 1955 Study 10/06/2021 Name: Kimberly (66yrs) Date: Age: 66 Account: [id number] Gender: F Loc: 243 BP: Ordering Physician: Saniya Oshea Paper Box Cutter: ANGEL PrakashT Interpreting Physician: Tam, Jose M.D. -- Location: [facility] -- Indications: Elevated d-dimer lower extremity [...] supine position. Images were obtained using a [email or web address] [email or web address] vascular ultrasound machine. The study was [...] + +augmen (more content not included)... Normal [facility] Basic Metabolic Panelon 12-0 Calcium [Mass/Vol] 8.5 mg/dL Normal 8.4-10.4 [facility] Comment on above: Performed By: #### B GLU #### [facility] [address] [place] [address] Anion gap [Moles/Vol] 5 mmol/L Normal 3-13 [facility] Comment on above: Performed By: #### B GLU #### [facility] [address] [place] [address] CO2 [Moles/Vol] 25 mmol/L Normal 22-30 [facility] Comment on above: Performed By: #### B GLU #### [facility] [address] [place] [address] Creatinine [Mass/Vol] 2.40 mg/dL High 0.52-1.25 [facility] Comment on above: Performed By: #### B GLU #### [facility] [address] [place] [address] GFR/1.73 sq M.predicted among blacks MDRD (S/P/Bld) [Vol rate/Area] 23.9 mL/min/{1.73_m2} Abnormal >60 [facility] Comment on above: Performed By: #### B GLU #### [facility] [address] [place] [address] GFR/1.73 sq M.predicted among non-blacks MDRD (S/P/Bld) [Vol rate/Area] 20.6 mL/min/{1.73_m2} Abnormal >60 [facility] Comment on above: Result Comment: KDIG [...] secretion. Performed By: #### B GLU #### [facility] [address] [place] [address] Glucose [Mass/Vol] 182 mg/dL High 70-100 [facility] Comment on above: Performed By: #### B GLU #### [facility] [address] [place] [address] Urea nitrogen [Mass/Vol] 55 mg/dL High 9-20 [facility] Comment on above: Performed By: #### B GLU #### [facility] [address] [place] [address] Chloride [Moles/Vol] 108 mmol/L High 98-107 [facility] Comment on above: Performed By: #### B GLU #### [facility] [address] [place] [address] Potassium [Moles/Vol] 5.3 mmol/L High 3.5-5.1 [facility] Comment on above: Performed By: #### B GLU #### [facility] [address] [place] [address] Sodium [Moles/Vol] 139 mmol/L Normal 135-145 [facility] Comment on above: Performed By: #### B GLU #### [facility] [address] [place] [address] Basic Metabolic Panel w/ Ref aidan to MGon 10-05-2021 Anion gap [Moles/Vol] 5 mmol/L 3 - 13 mmol/L [facility] Calcium [Mass/Vol] 8.5 mg/dL 8.4 - 10. 4 mg/dL [facility] Chloride [Moles/Vol] 108 mmol/L High 98 - 10 7 mmol/L [facility] CO2 [Moles/Vol] 25 mmol/L 22 - 30 mmol/L [facility] Creatinine [Mass/Vol] 2.4 mg/dL High 0.52 - 1.25 mg/dL [facility] EGFR IF NonAfrican Dominican 20.6 mL/min Abnormal >60 [facility] GFR/1.73 sq [...] 55 mg/dL High 9 - 20 mg/dL [facility] CBC Auto Differentialon 12-0 Absolute Baso [...] [#/Vol] 10.3 10*3/uL 3.6 - 10.7 10*3/uL [facility] Glucose,Bedsideon 10-05-2021 Glucose [Mass/Vol] 168 mg/dL [address] Comment on above: Result Comment: Test performed by glucose meter. Results may be 10%-15% lower than serum/plasma values. (CLIA ID [id number]) Performed By: #### B GLU #### [facility] [address] [place] [address] Glucose [Mass/Vol] 115 mg/dL [address] Comment on above: Result Comment: Test performed by glucose meter. Results may be 10%-15% lower than serum/plasma values. (CLIA ID [id number]) Performed By: #### H EMDF, LIPA4, LACTS, CMP3M #### [facility] [address] [place] [address] Glucose [Mass/Vol] 187 mg/dL High [address] [place] [address] Comment on above: Result Comment: Test performed by glucose meter. Results may be 10%-15% lower than serum/plasma values. (CLIA ID [id number]) Performed By: #### C MP3M, HEMDF, MDIFF #### [facility] [address] [place] [address] #### PCAL #### [address] Glucose [Mass/Vol] 127 mg/dL High 70-100 [facility] Comment on above: Result Comment: Test performed by glucose meter. Results may be 10%-15% lower than serum/plasma values. (CLIA ID [id number]) Performed By: #### C ROMEO DEY MDIFF #### [facility] [address] [place] [address] #### PCAL #### [address] Hemogram w/ Autodiffon 10-05 Abs Baso Cnt 0.0 10*3/uL Normal 0.0-0.2 [facility] Comment on above: Performed By: #### B GLU #### [facility] [address] [place] [address] Abs Neutrophile Cnt 8.2 10*3/uL High 1.8-7.0 [facility] Comment on above: Performed By: #### B GLU #### [facility] [address] [place] [address] Basophils/100 WBC (Bld) 0.3 % Normal 0.0-2.0 [facility] Comment on above: Performed By: #### B GLU #### [facility] [address] [place] [address] Eosinophils (Bld) [#/Vol] 0.2 10*3/uL Normal 0.0-0.5 [facility] Comment on above: Performed By: #### B GLU #### [facility] [address] [place] [address] Eosinophils/100 WBC (Bld) 1.6 % Normal 1.0-6.0 [facility] Comment on above: Performed By: #### B GLU #### [facility] [address] [place] [address] Erythrocyte distribution width (RBC) [Ratio] 16.2 % High 11.5-14.5 [facility] Comment on above: Performed By: #### B GLU #### [facility] [address] [place] [address] Granulocytes/100 WBC (Bld) 80.0 % Normal 40.0-80.0 [facility] Comment on above: Performed By: #### B GLU #### [facility] [address] [place] [address] Hematocrit (Bld) [Volume fraction] 25.5 % Low 35.0-47.0 [facility] Comment on above: Performed By: #### B GLU #### [facility] [address] [place] [address] Hemoglobin (Bld) [Mass/Vol] 8.1 g/dL Low 11.7-16.0 [facility] Comment on above: Performed By: #### B GLU #### [facility] [address] [place] [address] Lymphocytes (Bld) [#/Vol] 1.0 10*3/uL Normal 1.0-4.3 [facility] Comment on above: Performed By: #### B GLU #### [facility] [address] [place] [address] Lymphocytes/100 WBC (Bld) 10.0 % Low 20.0-40.0 [facility] Comment on above: Performed By: #### B GLU #### [facility] [address] [place] [address] MCH (RBC) [Entitic mass] 27.0 pg Normal 26.0-34.0 [facility] Comment on above: Performed By: #### B GLU #### [facility] [address] [place] [address] MCHC 31.6 % Low 32.0-36.0 [facility] Comment on above: Performed By: #### B GLU #### [facility] [address] [place] [address] MCV (RBC) [Entitic vol] 85.3 fL Normal 79.0-98.0 [facility] Comment on above: Performed By: #### B GLU #### [facility] [address] [place] [address] Monocytes (Bld) [#/Vol] 0.8 10*3/uL Normal 0.0-0.8 [facility] Comment on above: Performed By: #### B GLU #### [facility] [address] [place] [address] Monocytes/100 WBC (Bld) 8.1 % Normal 2.0-10.0 [facility] Comment on above: Performed By: #### B GLU #### [facility] [address] [place] [address] Platelet mean volume (Bld) [Entitic vol] 7.1 fL Low 7.4-10.4 [facility] Comment on above: Performed By: #### B GLU #### [facility] [address] [place] [address] Platelets (Bld) [#/Vol] 171 10*3/uL Normal 140-440 [facility] Comment on above: Performed By: #### B GLU #### [facility] [address] [place] [address] RBC (Bld) [#/Vol] 2.99 10*6/uL Low 3.80-5.20 [facility] Comment on above: Performed By: #### B GLU #### [facility] [address] [place] [address] WBC (Bld) [#/Vol] 10.3 10*3/uL Normal 3.6-10.7 [facility] Comment on above: Performed By: #### B GLU #### [facility] [address] [place] [address] POCT Glucoseon 10-05-2021 Glucose [Mass/Vol] 168 mg/dL High 70 - 100 mg/dL [facility] Interpretation and review of laboratory results Abnormal [facility] Glucose [Mass/Vol] 115 mg/dL High 70 - 100 mg/dL [facility] Interpretation and review of laboratory results Abnormal [facility] Glucose [Mass/Vol] 187 mg/dL High 70 - 100 mg/dL [facility] Interpretation and review of laboratory results Abnormal [facility] Glucose [Mass/Vol] 127 mg/dL High 70 - 100 mg/dL [facility] Interpretation and review of laboratory results Abnormal [facility] Potassiumon 10-05-2021 Potassium [Moles/Vol] 5.0 mmol/L Normal 3.5-5.1 [facility] Comment on above: Performed By: #### B GLU #### [facility] [address] [place] [address] Potassium [Moles/Vol] 5.0 mmol/L 3.5 - 5.1 mmol/L [facility] Procalcitoninon 10-05-2021 Interpretation See Below Normal [facility] Comment on above: Result Comment: PCT <0.50 = Low risk of severe sepsis and/or septic shock. PCT >2.00 = High risk of severe sepsis and/or septic shock. Performed By: #### H EMDF, LIPA4, LACTS, CMP3M #### [facility] [address] [place] [address] Basic Metabolic Panelon 12-0 Anion gap [Moles/Vol] 5 mmol/L Normal 3-13 [facility] Comment on above: Performed By: #### H EMDF, LIPA4, LACTS, CMP3M #### [facility] [address] [place] [address] Calcium [Mass/Vol] 8.2 mg/dL Low 8.4-10.4 [facility] Comment on above: Performed By: #### H EMDF, LIPA4, LACTS, CMP3M #### [facility] [address] [place] [address] CO2 [Moles/Vol] 24 mmol/L Normal 22-30 [facility] Comment on above: Performed By: #### H EMDF, LIPA4, LACTS, CMP3M #### [facility] [address] [place] [address] Creatinine [Mass/Vol] 2.65 mg/dL High 0.52-1.25 [facility] Comment on above: Performed By: #### H EMDF, LIPA4, LACTS, CMP3M #### [facility] [address] [place] [address] GFR/1.73 sq M.predicted among blacks MDRD (S/P/Bld) [Vol rate/Area] 21.2 mL/min/{1.73_m2} Abnormal >60 [facility] Comment on above: Performed By: #### H EMDF, LIPA4, LACTS, CMP3M #### [facility] [address] [place] [address] GFR/1.73 sq M.predicted among non-blacks MDRD (S/P/Bld) [Vol rate/Area] 18.3 mL/min/{1.73_m2} Abnormal >60 [facility] Comment on above: Result Comment: KDIG [...] #### H EMDF, LIPA4, LACTS, CMP3M #### [facility] [address] [place] [address] Glucose [Mass/Vol] 167 mg/dL High 70-100 [facility] Comment on above: Performed By: #### H EMDF, LIPA4, LACTS, CMP3M #### [facility] [address] [place] [address] Urea nitrogen [Mass/Vol] 57 mg/dL High 9-20 [facility] Comment on above: Performed By: #### H EMDF, LIPA4, LACTS, CMP3M #### [facility] [address] [place] [address] Chloride [Moles/Vol] 106 mmol/L Normal 98-107 [facility] Comment on above: Performed By: #### H EMDF, LIPA4, LACTS, CMP3M #### [facility] [address] [place] [address] Potassium [Moles/Vol] 5.0 mmol/L Normal 3.5-5.1 [facility] Comment on above: Performed By: #### H EMDF, LIPA4, LACTS, CMP3M #### [facility] [address] [place] [address] Sodium [Moles/Vol] 136 mmol/L Normal 135-145 [facility] Comment on above: Performed By: #### H EMDF, LIPA4, LACTS, CMP3M #### [facility] [address] [place] [address] Basic Metabolic Panel w/ Ref aidan to MGon 10-04-2021 Anion gap [Moles/Vol] 5 mmol/L 3 - 13 mmol/L [facility] Calcium [Mass/Vol] 8.2 mg/dL Low 8.4 - 10. 4 mg/dL [facility] Chloride [Moles/Vol] 106 mmol/L 98 - 10 7 mmol/L [facility] CO2 [Moles/Vol] 24 mmol/L 22 - 30 mmol/L [facility] Creatinine [Mass/Vol] 2.65 mg/dL High 0.52 - 1.25 mg/dL [facility] EGFR IF NonAfrican Dominican 18.3 mL/min Abnormal >60 [facility] GFR/1.73 sq M.predicted among blacks MDRD (S/P/Bld) [Vol rate/Area] 21.2 mL/min/{1.73_m2} Abnormal >60 [facility] Glucose [Mass/Vol] 167 mg/dL High 70 - 100 mg/dL [facility] Interpretation and review of laboratory results Abnormal [facility] Potassium [Moles/Vol] 5.0 mmol/L 3.5 - 5.1 mmol/L [facility] Sodium [Moles/Vol] 136 mmol/L 135 - 145 mmol/L [facility] Urea nitrogen (BldV) [Mass/Vol] 57 mg/dL High 9 - 20 mg/dL [facility] Brain Natriuretic Peptideon 10-04-2021 Interpretation and review of laboratory results Abnormal [facility] Natriuretic peptide B (Bld) [Mass/Vol] 6910 pg/mL High 0 - 125 pg/mL [facility] CBC Auto Differentialon 12-0 Absolute Baso [...] 8.3 g/dL Low 11.7 - 16.0 g/dL [facility] Interpretation and review of laboratory results [...] [#/Vol] 178 10*3/uL 140 - 440 10*3/uL [facility] RBC (Bld) [#/Vol] 3.05 10*6/uL Low 3.80 - 5.2 0 10*6/uL [facility] WBC (Bld) [#/Vol] 16.5 10*3/uL High 3.6 - 10.7 10*3/uL [facility] CULTURE BLOODon 10-04-2021 Microscopic examination of blood, culture CULTURE BLOOD --> Status: F Escherichia coli DETECTED. Presumptive identification performed using [employer] Film[employer] PCR methodology; confirmatory identification to follow. _ The Touch of [employer]Array BCID2 PCR Panel can detect the following [...] VIM, and mcr-1. Presumptive identification performed using [employer] FilmArray PCR methodology; confirmatory identification to follow. _ [employer] BCID2 PCR Panel can detect the following [...] <= 1 S Aztreonam(ASHU) <= 1 S Ampicillin/Sulbactam(IL C) <= 2 S Pip/Tazobactam(ASHU) <= 4 S Meropenem(ASHU) <= 0.25 S Ciprofloxacin(ASHU) <= 0.25 S Gentamicin(ASHU) <= 1 S Amikacin(ASHU) <= 2 S Normal [facility] Comment on above: Performed By: #### L ACTS #### [facility] [address] [place] [address] Culture, Blood 1on 1 Blood Culture, Routine Abnormal [facility] Work Phone: Blood Culture, Routine Escherichia coli Abnormal [facility] Work Phone: Blood Culture, Routine Isolated: [employer] Work Phone: [facility] Work Phone: [phone] D-Dimer, Innovanceon 021 D-Dimer, Innovance 1.09 mg/L High <0.19-0.50 [facility] Comment on above: Result Comment: Inno garcia D-Dimer values of <0.50 mg/L FEU can be used in combination with a pre-test probability model (e.g. Well's) to exclude pulmonary embolism (PE) disease, as well as an aid in the diagnosis of deep vein thrombosis (DVT). Performed By: #### B GLU #### [facility] [address] [place] [address] D-Dimer, Quantitativeon D-Dimer, Quant 1.09 mg/L High <0.19 - 0.50 [facility] Interpretation and review of laboratory results Abnormal [facility] Glucose,Bedsideon 10-04-2021 Glucose [Mass/Vol] 301 mg/dL High 70-100 [facility] Comment on above: Result Comment: Test performed by glucose meter. Results may be 10%-15% lower than serum/plasma values. (CLIA ID [id number]) Performed By: #### C ROMEO DEY MDIFF #### [facility] [address] [place] [address] #### PCAL #### [facility] [address] [place] [address] Glucose [Mass/Vol] 266 mg/dL High 70-100 [facility] Comment on above: Result Comment: Test performed by glucose meter. Results may be 10%-15% lower than serum/plasma values. (CLIA ID [id number]) Performed By: #### C ROMEO DEY, MDIFF #### [facility] [address] [place] [address] #### PCAL #### [facility] [address] [place] [address] Glucose [Mass/Vol] 215 mg/dL High 70-100 [facility] Comment on above: Result Comment: Test performed by glucose meter. Results may be 10%-15% lower than serum/plasma values. (CLIA ID [id number]) Performed By: #### B GLU #### [facility] [address] [place] [address] Glucose [Mass/Vol] 132 mg/dL High 70-100 [facility] Comment on above: Result Comment: Test performed by glucose meter. Results may be 10%-15% lower than serum/plasma values. (CLIA ID [id number]) Performed By: #### H EMDF, LIPA4, LACTS, CMP3M #### [facility] [address] [place] [address] Glucose [Mass/Vol] 155 mg/dL High 70-100 [facility] Comment on above: Result Comment: Test performed by glucose meter. Results may be 10%-15% lower than serum/plasma values. (CLIA ID [id number]) Performed By: #### H EMDF, LIPA4, LACTS, CMP3M #### [place] [address] [place] [address] Hemogram w/ Autodiffon 10-04 Abs Baso Cnt 0.0 10*3/uL Normal 0.0-0.2 [facility] Comment on above: Performed By: #### C MP3Travis HEMELLEN, MDIFF #### [place] [address] [place] [address] #### PCAL #### [address] Abs Neutrophile Cnt 14.2 10*3/uL High 1.8-7.0 [facility] Comment on above: Performed By: #### C MP3Travis HEMDF, MDIFF #### [place] [address] [place] [address] #### PCAL #### [address] Basophils/100 WBC (Bld) 0.3 % Normal 0.0-2.0 [facility] Comment on above: Performed By: #### C MP3M HEMDF, MDIFF #### [facility] [address] [place] [address] #### PCAL #### [place] [address] [place], [place] Eosinophils (Bld) [#/Vol] 0.2 10*3/uL Normal 0.0-0.5 [facility] Comment on above: Performed By: #### C ROMEO DEY MDIFF #### [facility] [address] [place] [address] #### PCAL #### [place] [address] [place], [place] Eosinophils/100 WBC (Bld) 1.4 % Normal 1.0-6.0 [facility] Comment on above: Performed By: #### C ROMEO DEY MDIFF #### [place] [address] [place] [address] #### PCAL #### [place] [address] [place], [place] Erythrocyte distribution width (RBC) [Ratio] 16.3 % High 11.5-14.5 [facility] Comment on above: Performed By: #### C ROMEO DEY MDIFF #### [place] [address] [place] [address] #### PCAL #### [place] [address] [place], [place] Granulocytes/100 WBC (Bld) 86.2 % High 40.0-80.0 [facility] Comment on above: Performed By: #### C ROMEO DEY MDIFF #### [place] [address] [place] [address] #### PCAL #### [place] [address] [place], [place] Hematocrit (Bld) [Volume fraction] 25.7 % Low 35.0-47.0 [facility] Comment on above: Performed By: #### C ROMEO DEY MDIFF #### [place] [address] [place] [address] #### PCAL #### [facility] [address] [place], [place] Hemoglobin (Bld) [Mass/Vol] 8.3 g/dL Low 11.7-16.0 [facility] Comment on above: Performed By: #### C ROMEO DEY MDIFF #### [facility] [address] [place] [address] #### PCAL #### [facility] [address] [place], [place] Lymphocytes (Bld) [#/Vol] 1.2 10*3/uL Normal 1.0-4.3 [facility] Comment on above: Performed By: #### ROMEO LOPEZ MDIFF #### [facility] [address] [place] [address] #### PCAL #### [place] [address] [place], [place] Lymphocytes/100 WBC (Bld) 7.5 % Low 20.0-40.0 [facility] Comment on above: Performed By: #### C ROMEO DEY MDIFF #### [facility] [address] [place] [address] #### PCAL #### [place] [address] [place], [place] MCH (RBC) [Entitic mass] 27.2 pg Normal 26.0-34.0 [facility] Comment on above: Performed By: #### C ROMEO DEY MDIFF #### [facility] [address] [place] [address] #### PCAL #### [place] [address] [place], [place] MCHC 32.3 % Normal 32.0-36.0 [facility] Comment on above: Performed By: #### C ROMEO DEY MDIFF #### [facility] [address] [place] [address] #### PCAL #### [place] [address] [place], [place] MCV (RBC) [Entitic vol] 84.3 fL Normal 79.0-98.0 [facility] Comment on above: Performed By: #### C ROMEO DEY MDIFF #### [facility] [address] [place] [address] #### PCAL #### [facility] [address] [place], [place] Monocytes (Bld) [#/Vol] 0.8 10*3/uL Normal 0.0-0.8 [facility] Comment on above: Performed By: #### C ROMEO DEY MDIFF #### [facility] [address] [place] [address] #### PCAL #### [place] [address] [place], [place] Monocytes/100 WBC (Bld) 4.6 % Normal 2.0-10.0 [facility] Comment on above: Performed By: #### C ROMEO DEY MDIFF #### [facility] [address] [place] [address] #### PCAL #### [place] [address] [place], [place] Platelet mean volume (Bld) [Entitic vol] 7.0 fL Low 7.4-10.4 [facility] Comment on above: Performed By: #### ROMEO LOPEZ MDIFF #### [place] [address] [place] [address] #### PCAL #### [place] [address] [place], [place] Platelets (Bld) [#/Vol] 178 10*3/uL Normal 140-440 [facility] Comment on above: Performed By: #### C ROMEO DEY MDIFF #### [facility] [address] [place] [address] #### PCAL #### [place] [address] [place], [place] RBC (Bld) [#/Vol] 3.05 10*6/uL Low 3.80-5.20 [facility] Comment on above: Performed By: #### C ROMEO DYE MDIFF #### [facility] [address] [place] [address] #### PCAL #### [facility] [address] [place] [address] WBC (Bld) [#/Vol] 16.5 10*3/uL High 3.6-10.7 [facility] Comment on above: Performed By: #### C ROMEO DEY MDIFF #### [facility] [address] [place] [address] #### PCAL #### [facility] [address] [place] [address] NT pro BNPon 10-04-2021 Natriuretic peptide B (Bld) [Mass/Vol] 6910 pg/mL High 0-125 [facility] Comment on above: Performed By: #### H EMDF, LIPA4, LACTS, CMP3M #### [facility] [address] [place] [address] No Panel Informationon 10-04 [facility] Interpretation and review of laboratory results Abnormal [facility] Work Phone: [facility] Glucoseon 10-04-2021 Glucose [Mass/Vol] 301 mg/dL High 70 - 100 mg/dL [facility] Interpretation and review of laboratory results Abnormal [facility] Glucose [Mass/Vol] 266 mg/dL High 70 - 100 mg/dL [facility] Interpretation and review of laboratory results Abnormal [facility] Glucose [Mass/Vol] 215 mg/dL High 70 - 100 mg/dL [facility] Interpretation and review of laboratory results Abnormal [facility] Glucose [Mass/Vol] 132 mg/dL High 70 - 100 mg/dL [facility] Interpretation and review of laboratory results Abnormal [facility] CREATININE, RANDOM URINEon 1 12-04-2020 Creatinine (U) [Mass/Vol] 100.7 mg/dL No Range [facility] Comp Panel with Mg Reflexon 10-03-2021 ALP [Catalytic activity/Vol] 60 U/L Normal 38-126 [facility] Comment on above: Performed By: #### L ACTS #### [facility] [address] [place] [address] ALT [Catalytic activity/Vol] 14 U/L Normal 0-34 [facility] Comment on above: Result Comment: The ALT test is performed by an updated assay method. Please note that the reference intervals have been changed and are now sex specific. Performed By: #### L ACTS #### [facility] [address] [place] [address] Anion gap [Moles/Vol] 7 mmol/L Normal 3-13 [facility] Comment on above: Performed By: #### L ACTS #### [facility] [address] [place] [address] AST [Catalytic activity/Vol] 18 U/L Normal 15-46 [facility] Comment on above: Performed By: #### L ACTS #### [facility] [address] [place] [address] Bilirubin [Mass/Vol] 0.6 mg/dL Normal 0.2-1.3 [facility] Comment on above: Performed By: #### L ACTS #### [facility] [address] [place] [address] CO2 [Moles/Vol] 23 mmol/L Normal 22-30 [facility] Comment on above: Performed By: #### L ACTS #### [facility] [address] [place] [address] Creatinine [Mass/Vol] 2.51 mg/dL High 0.52-1.25 [facility] Comment on above: Performed By: #### L ACTS #### [facility] [address] [place] [address] GFR/1.73 sq M.predicted among blacks MDRD (S/P/Bld) [Vol rate/Area] 22.6 mL/min/{1.73_m2} Abnormal >60 [facility] Comment on above: Performed By: #### L ACTS #### [facility] [address] [place] [address] GFR/1.73 sq M.predicted among non-blacks MDRD (S/P/Bld) [Vol rate/Area] 19.5 mL/min/{1.73_m2} Abnormal >60 [facility] Comment on above: Result Comment: KDIG [...] secretion. Performed By: #### L ACTS #### [facility] [address] [place] [address] Glucose [Mass/Vol] 200 mg/dL High 70-100 [facility] Comment on above: Performed By: #### L ACTS #### [facility] [address] [place] [address] Protein [Mass/Vol] 5.8 g/dL Low 6.3-8.2 [facility] Comment on above: Performed By: #### L ACTS #### [facility] [address] [place] [address] Urea nitrogen [Mass/Vol] 51 mg/dL High 9-20 [facility] Comment on above: Performed By: #### L ACTS #### [facility] [address] [place] [address] Potassium [Moles/Vol] 4.8 mmol/L Normal 3.5-5.1 [facility] Comment on above: Performed By: #### L ACTS #### [facility] [address] [place] [address] Albumin [Mass/Vol] 3.2 g/dL Low 3.5-5.0 [facility] Comment on above: Performed By: #### L ACTS #### [facility] [address] [place] [address] Chloride [Moles/Vol] 103 mmol/L Normal 98-107 [facility] Comment on above: Performed By: #### L ACTS #### [facility] [address] [place] [address] Sodium [Moles/Vol] 133 mmol/L Low 135-145 [facility] Comment on above: Performed By: #### L ACTS #### [facility] [address] [place] [address] Calcium [Mass/Vol] 7.6 mg/dL Low 8.4-10.4 [facility] Comment on above: Performed By: #### L ACTS #### [facility] [address] [place] [address] Comprehensive Metabolic Pane l w/ Reflex to [...] - 1.25 mg/dL [facility] EGFR IF NonAfrican Dominican 19.5 mL/min Abnormal >60 [facility] Free PSA/Total PSA [Mass fraction] 5.8 g/dL Low 6.3 - 8.2 g/dL [facility] GFR/1.73 sq M.predicted among blacks MDRD (S/P/Bld) [Vol rate/Area] 22.6 mL/min/{1.73_m2} Abnormal >60 [facility] Glucose [Mass/Vol] 200 mg/dL High 70 - 100 mg/dL [facility] Interpretation and review of laboratory results Abnormal [facility] Potassium [Moles/Vol] 4.8 mmol/L 3.5 - 5.1 mmol/L [facility] Sodium [Moles/Vol] 133 mmol/L Low 135 - 145 mmol/L [facility] Urea nitrogen (BldV) [Mass/Vol] 51 mg/dL High 9 - 20 mg/dL [facility] Creatinine, Ur Randomon -0 Creatinine, Ur Random 100.7 mg/dL Normal No Range [facility] Comment on above: Performed By: #### H EMDF, LIPA4, LACTS, CMP3M #### [facility] [address] [place] [address] ECHO Complete 2D W Doppler W Coloron 10-03-2021 [facility] Work Phone: ECHO Complete 2D W Doppler W ColorOrdered By: Janie Lr on 10-03-2021 [facility] Work Phone: Echo Complete w/wo Contrasto n 10-03-2021 Echo Complete w/wo Contrast Patient Name: KIMBERLY PATEL Ultrasound ACCESSION EXAM DATE/TIME PROCEDURE ORDERING PROVIDER [id number] 10/03/2021 13:34 EST Echo Complete w/wo SETH PAZ, DUYEN Contrast Reason For Exam (Echo Complete w/wo Contrast) shortness of breath, history of HfpEf Report TRANSTHORACIC ECHOCARDIOGRAM PATIENT: Kimberly Patel STUDY DATE: 10/03/2021 : 1955 AGE: 66 HT/WT: 162.6 cm (66 130.2 kg in) (286.4 lb) GENDER: F BP: 98 / 50 LOCATION: [facility] PATIENT Inpatient [facility] STATUS: *ORDERING PHYSICIAN: * Jackson, *FELLOW: * Baldomero Pan *READING PHYSICIAN: * Janie *CORE ANALYST: * Be Ribera RDCS, MD, FACC AE, [...] transthoracic echocardiogram. Procedure: Image quality was suboptimal. OKpanda lot #: [id number]. M-mode, complete 2D, complete [...] 2-p 1 (more content not included)... Normal [facility] Glucose, Bedsideon 1 Confirmation see below Normal [facility] Comment on above: Result Comment: No c onfirmation received. Performed By: #### L ACTS #### [facility] [address] [place] [address] Glucose,Bedside > 450 High 70-100 [facility] Comment on above: Result Comment: Test performed by glucose meter. Results may be 10%-15% lower than serum/plasma values. (CLIA ID [id number]) Performed By: #### L ACTS #### [facility] [address] [place] [address] Glucose,Bedsideon 10-03-2021 Glucose [Mass/Vol] 161 mg/dL High 70-100 [facility] Comment on above: Result Comment: Test performed by glucose meter. Results may be 10%-15% lower than serum/plasma values. (CLIA ID [id number]) Performed By: #### H EMDF, LIPA4, LACTS, CMP3M #### [facility] [address] [place] [address] Glucose [Mass/Vol] 225 mg/dL High 70-100 [facility] Comment on above: Result Comment: Test performed by glucose meter. Results may be 10%-15% lower than serum/plasma values. (CLIA ID [id number]) Performed By: #### H EMDF, LIPA4, LACTS, CMP3M #### [facility] [address] [place] [address] Glucose [Mass/Vol] 209 mg/dL High 70-100 [facility] Comment on above: Result Comment: Test performed by glucose meter. Results may be 10%-15% lower than serum/plasma values. (CLIA ID [id number]) Performed By: #### C ROMEO DEY MDIFF #### [facility] [address] [place] [address] #### PCAL #### [facility] [address] [address] Glucose [Mass/Vol] 250 mg/dL High 70-100 [facility] Comment on above: Result Comment: Test performed by glucose meter. Results may be 10%-15% lower than serum/plasma values. (CLIA ID [id number]) Performed By: #### C ROMEO DEY MDIFF #### [facility] [address] [facility] [address] #### PCAL #### [facility] [address] [address] Glucose [Mass/Vol] 221 mg/dL High 70-100 [facility] Comment on above: Result Comment: Test performed by glucose meter. Results may be 10%-15% lower than serum/plasma values. (CLIA ID [id number]) Performed By: #### L ACTS #### [facility] [address] [place] [address] LEGIONELLA AG, URINEon 10-03 LEGIONELLA AG, URINE LEGIONELLA AG, URIN E --> Status: F Legionella antigen NOT DETECTED. Normal [facility] Comment on above: Performed By: #### L ACTS #### [facility] [address] [place] [address] Lactate, Sepsison 10-03-2021 Lactate [Moles/Vol] 0.9 mmol/L 0.7 - 2. 0 mmol/L [facility] Lactic Acid, Sepsison 2020 Lactate [Moles/Vol] 0.9 mmol/L Normal 0.7-2.0 [facility] Comment on above: Performed By: #### L ACTS #### [facility] [address] [place] [address] Legionella Antigen, Urineon 10-03-2021 LEGIONELLA ANTIGEN Not detected [facility] No Panel Informationon 10-03 [facility] POC Glucose, Whole Bloodon 1 12-04-2020 Confirmation see below [facility] Glucose [Mass/Vol] mg/dL High 70 - 100 mg/dL [facility] Interpretation and review of laboratory results Abnormal [facility] POCT Glucoseon 10-03-2021 Glucose [Mass/Vol] 161 mg/dL High 70 - 100 mg/dL [facility] Interpretation and review of laboratory results Abnormal [facility] Glucose [Mass/Vol] 225 mg/dL High 70 - 100 mg/dL [facility] Work Phone: Interpretation and review of laboratory results Abnormal [facility] Work Phone: [facility] Work Phone: Glucose [Mass/Vol] 209 mg/dL High 70 - 100 mg/dL [facility] Work Phone: Interpretation and review of laboratory results Abnormal [facility] Work Phone: [facility] Work Phone: [facility] POCT GlucoseOrdered By: Nohemy Eng on 10-03-2021 Glucose [Mass/Vol] 250 mg/dL High 70 - 100 mg/dL [facility] Work Phone: Interpretation and review of laboratory results Abnormal [facility] Work Phone: [facility] Work Phone: Procalcitoninon 10-03-2021 Procalcitonin 75.82 ng/mL High 0.00-0.09 [facility] Comment on above: Performed By: #### H EMDF, LIPA4, LACTS, CMP3M #### [facility] [address] [place] [address] SODIUM, URINE, RANDOMon Interpretation and review of laboratory results Abnormal [facility] Sodium (U) [Moles/Vol] 9 mmol/L Low 30 - 90 mmol/L [facility] STREP PNEUMO ANTIGEN, URINEo n 10-03-2021 STREP PNEUMO ANTIGEN, URINE STREP PNEUMO ANTIGEN, URINE --> Status: F Strep pneumo antigen NOT DETECTED. Normal [facility] Comment on above: Performed By: #### L ACTS #### [facility] [address] [place] [address] STREP PNEUMONIAE ANTIGENon 1 12-04-2020 STREP PNEUMONIAE ANTIGEN, URINE Not detected [facility] Sodium, Ur Randomon 10-03-20 21 Sodium [Moles/Vol] 9 mmol/L Low 30-90 [facility] Comment on above: Performed By: #### H EMDF, LIPA4, LACTS, CMP3M #### [facility] [address] [place] [address] US RETROPERITONEAL COMPLETEo n 10-03-2021 [facility] RAD [facility] Work Phone: Radiology Study observation (narrative) [facility] Work Phone: US RETROPERITONEAL COMPLETEO rdered By: Citlalli Warren on 10-03-2021 [facility] Work Phone: US Retroperitoneal Completeo n 10-03-2021 US Retroperitoneal Complete Patient Name: KIMBERLY PATEL Ultrasound ACCESSION EXAM DATE/TIME PROCEDURE ORDERING PROVIDER [id number] 10/03/2021 14:38 EST US Retroperitoneal JACKSON, EDUCATION AND DEVELOPMENT MANAGER, DUYEN Complete CPT code 74197 Reason For Exam (US Retroperitoneal Complete) DARRELL [...] Transcribed Date and Time: 10/03/2021 2:45 Normal [facility] Arterial Blood Gas Respirato jace 10-02-2021 Base Excess -1.0 mmol/L Normal -3.0-3.0 [facility] Comment on above: Performed By: #### L ACTS #### [facility] [address] [place] [address] CO2 [Moles/Vol] 24.8 mmol/L Normal 23.0-27.0 [facility] Comment on above: Performed By: #### L ACTS #### [facility] [address] [facility] [place] [address] FIO2 4 Normal [facility] Comment on above: Result Comment: Perf ormed by CLIA ID: [id number] [place] Performed By: #### L ACTS #### [facility] [address] [place] [address] HCO3 (Bld) [Moles/Vol] 23.6 mmol/L Normal 21.0-25.0 [facility] Comment on above: Performed By: #### L ACTS #### [facility] [address] [place] [address] Oxygen (Bld) [Partial pressure] 86.9 mm[Hg] Normal 80.0-100.0 [facility] Comment on above: Performed By: #### L ACTS #### [facility] [address] [place] [address] Oxygen saturation in Blood 96.7 % Normal 95.0-100.0 [facility] [employer] Comment on above: Performed By: #### L ACTS #### [facility] [address] [place] [address] pCO2 38.1 mm[Hg] Normal 35.0-45.0 [facility] Comment on above: Performed By: #### L ACTS #### [facility] [address] [place] [address] pH 7.400 Normal 7.350-7.450 [facility] [employer] Comment on above: Performed By: #### L ACTS #### [facility] [address] [place] [address] CBC auto differentialon 12-0 Absolute Baso # 0.0 10*3/uL 0.0 - 0.2 10*3/uL [facility] Work Phone: 1 [phone] Absolute Neut # 13.7 10*3/uL High 1.8 - 7.0 10*3/uL [facility] Work Phone: 1) 22 Basophils/100 WBC (Bld) 0.1 % 0.0 - 2.0 % [facility] Work Phone: 1) 22 Eosinophils (Bld) [#/Vol] 0.0 10*3/uL 0.0 - 0.5 10*3/uL [facility] Work Phone: 1) 22 Eosinophils/100 WBC (Bld) 0.2 % Low 1.0 - 6.0 % [facility] Work Phone: 1) 22 Granulocytes/100 WBC (Bld) 96.7 % High 40.0 - 80.0 % [facility] Work Phone: 1 22 Hematocrit (Bld) [Volume fraction] 31.7 % Low 35.0 - 47.0 % [facility] Work Phone: 1 22 Hemoglobin.gastrointest inal spec 1 Ql (Stl) 10.3 g/dL Low 11.7 - 16.0 g/dL [facility] Work Phone: 1 Interpretation and review of laboratory results Abnormal [facility] Work Phone: Lymphocytes (Bld) [#/Vol] 0.2 10*3/uL Low 1.0 - 4.3 10*3/uL [facility] Work Phone: Lymphocytes/100 WBC (Bld) 1.6 % Low 20.0 - 40.0 % [facility] Work Phone: 1 MCH (RBC) [Entitic mass] 26.9 pg 26.0 - 34.0 pg [facility] Work Phone: MCHC (RBC) [Mass/Vol] 32.4 % 32.0 - 36.0 % [facility] Work Phone: MCV (RBC) [Entitic vol] 82.8 fL 79.0 - 98.0 fL [facility] Work Phone: Monocytes (Bld) [#/Vol] 0.2 10*3/uL 0.0 - 0.8 10*3/uL [facility] Work Phone: 22 Monocytes/100 WBC (Bld) 1.4 % Low 2.0 - 10.0 % [facility] Work Phone: Platelet distribution width (Bld) [Ratio] 16.6 % High 11.5 - 14.5 % [facility] Work Phone: Platelet mean volume (Bld) [Entitic vol] 6.7 fL Low 7.4 - 10.4 fL [facility] Work Phone: Platelets (Bld) [#/Vol] 228 10*3/uL 140 - 440 10*3/uL [facility] Work Phone: RBC (Bld) [#/Vol] 3.83 10*6/uL 3.80 - 5.2 0 10*6/uL [facility] Work Phone: 22 WBC (Bld) [#/Vol] 14.2 10*3/uL High 3.6 - 10.7 10*3/uL [facility] Work Phone: [phone] [facility] Work Phone: [phone] COVID-19, Flu A/B, and RSV C omboon 10-02-2021 Influenza A by PCR Not detected [facility] Work Phone: [phone] Influenza B by PCR Not detected [facility] Work Phone: [phone] RSV PCR [facility] Work Phone: [phone] SARS-CoV-2 (COVID-19) RNA IGGY+probe Ql (Unsp spec) Not detected [facility] Work Phone: [phone] [facility] Work Phone: [phone] CR Chest Portableon 10-02-20 CR Chest Portable Patient Name: KIMBERLY PATEL Diagnostic Radiology ACCESSION EXAM DATE/TIME PROCEDURE ORDERING PROVIDER [id number] 10/02/2021 00:32 EST CR Chest Portable QUIQUE ROBERTS CPT code 54094 Reason For Exam (CR Chest Portable) sepsis [...] Transcribed Date and Time: 10/02/2021 0:39 Normal [facility] CT Abdomen Pelvis Wo Contras ton 10-02-2021 [facility] Work Phone: [phone] [facility] Work Phone: [phone] Radiology Study observation (narrative) [facility] Work Phone: [phone] CT Abdomen/Pelvis w/o Contra ston 10-02-2021 CT Abdomen/Pelvis w/o Contrast Patient Name: KIMBERLY PATEL Computed Tomography ACCESSION EXAM DATE/TIME PROCEDURE ORDERING PROVIDER [id number] 10/02/2021 02:[address] Abdomen/Pelvis (No 5816 QUIQUE GUPTA PO, No IV) CPT code 26705 Reason For Exam (CT Abdomen/Pelvis (No PO, [...] Transcribed Date and Time: 10/02/2021 2:59 Normal [facility] CT Head WO Contraston 2020 [facility] Work Phone: [facility] Work Phone: Radiology Study observation (narrative) [facility] Work Phone: CT Head or Brain w/o Contras ton 10-02-2021 CT Head or Brain w/o Contrast Patient [facility]: [id number] Computed Tomography ACCESSION EXAM DATE/TIME PROCEDURE ORDERING PROVIDER [id number] 10/02/2021 02:[address] Head or Brain w/o QUIQUE ROBERTS Contrast CPT code 17262 Reason For Exam (CT Head or Brain [...] Transcribed Date and Time: 10/02/2021 2:53 Normal [facility] Comp Metabolic Panelon 10-02 Calcium [Mass/Vol] 7.9 mg/dL Low 8.4-10.4 [facility] Comment on above: Performed By: #### H EMDF, LIPA4, LACTS, CMP3M #### [facility] [address] [place] [address] ALP [Catalytic activity/Vol] 93 U/L Normal 38-126 [facility] Comment on above: Performed By: #### H EMDF, LIPA4, LACTS, CMP3M #### [facility] [address] [place] [address] ALT [Catalytic activity/Vol] 18 U/L Normal 0-34 [facility] Comment on above: Result Comment: The ALT test is performed by an updated assay method. Please note that the reference intervals have been changed and are now sex specific. Performed By: #### H EMDF, LIPA4, LACTS, CMP3M #### [facility] [address] [place] [address] Anion gap [Moles/Vol] 6 mmol/L Normal 3-13 [facility] Comment on above: Performed By: #### H EMDF, LIPA4, LACTS, CMP3M #### [facility] [address] [place] [address] AST [Catalytic activity/Vol] 45 U/L Normal 15-46 [facility] Comment on above: Performed By: #### H EMDF, LIPA4, LACTS, CMP3M #### [facility] [address] [place] [address] Bilirubin [Mass/Vol] 0.5 mg/dL Normal 0.2-1.3 [facility] Comment on above: Performed By: #### H EMDF, LIPA4, LACTS, CMP3M #### [facility] [address] [place] [address] CO2 [Moles/Vol] 22 mmol/L Normal 22-30 [facility] Comment on above: Performed By: #### H EMDF, LIPA4, LACTS, CMP3M #### [facility] [address] [place] [address] Creatinine [Mass/Vol] 2.28 mg/dL High 0.52-1.25 [facility] Comment on above: Performed By: #### H EMDF, LIPA4, LACTS, CMP3M #### [facility] [address] [place] [address] GFR/1.73 sq M.predicted among blacks MDRD (S/P/Bld) [Vol rate/Area] 25.4 mL/min/{1.73_m2} Abnormal >60 [facility] Comment on above: Performed By: #### H EMDF, LIPA4, LACTS, CMP3M #### [facility] [address] [place] [address] GFR/1.73 sq M.predicted among non-blacks MDRD (S/P/Bld) [Vol rate/Area] 21.9 mL/min/{1.73_m2} Abnormal >60 [facility] Comment on above: Result Comment: KDIG [...] #### H EMDF, LIPA4, LACTS, CMP3M #### [facility] [address] [place] [address] Glucose [Mass/Vol] 476 mg/dL Critically high 70-100 [facility] Comment on above: Performed By: #### H EMDF, LIPA4, LACTS, CMP3M #### [facility] [address] [place] [address] Protein [Mass/Vol] 6.1 g/dL Low 6.3-8.2 [facility] Comment on above: Performed By: #### H EMDF, LIPA4, LACTS, CMP3M #### [facility] [address] [place] [address] Urea nitrogen [Mass/Vol] 46 mg/dL High 9-20 [facility] Comment on above: Performed By: #### H EMDF, LIPA4, LACTS, CMP3M #### [facility] [address] [place] [address] Albumin [Mass/Vol] 3.2 g/dL Low 3.5-5.0 [facility] Comment on above: Performed By: #### H EMDF, LIPA4, LACTS, CMP3M #### [facility] [address] [place] [address] Chloride [Moles/Vol] 103 mmol/L Normal 98-107 [facility] Comment on above: Performed By: #### H EMDF, LIPA4, LACTS, CMP3M #### [facility] [address] [place] [address] Potassium [Moles/Vol] 5.4 mmol/L High 3.5-5.1 [facility] Comment on above: Performed By: #### H EMDF, LIPA4, LACTS, CMP3M #### [facility] [address] [place] [address] Sodium [Moles/Vol] 131 mmol/L Low 135-145 [facility] Comment on above: Performed By: #### H EMDF, LIPA4, LACTS, CMP3M #### [facility] [address] [place] [address] Comp Panel with Mg Reflexon 10-02-2021 Calcium [Mass/Vol] 8.5 mg/dL Normal 8.4-10.4 [facility] Comment on above: Performed By: #### H EMDF, LIPA4, LACTS, CMP3M #### [facility] [address] [place] [address] ALP [Catalytic activity/Vol] 140 U/L High 38-126 [facility] Comment on above: Performed By: #### H EMDF, LIPA4, LACTS, CMP3M #### [facility] [address] [place] [address] ALT [Catalytic activity/Vol] 19 U/L Normal 0-34 [facility] Comment on above: Result Comment: The ALT test is performed by an updated assay method. Please note that the reference intervals have been changed and are now sex specific. Performed By: #### H EMDF, LIPA4, LACTS, CMP3M #### [facility] [address] [place] [address] Anion gap [Moles/Vol] 7 mmol/L Normal 3-13 [facility] Comment on above: Performed By: #### H EMDF, LIPA4, LACTS, CMP3M #### [facility] [address] [place] [address] AST [Catalytic activity/Vol] 33 U/L Normal 15-46 [facility] Comment on above: Performed By: #### H EMDF, LIPA4, LACTS, CMP3M #### [facility] [address] [place] [address] CO2 [Moles/Vol] 25 mmol/L Normal 22-30 [facility] Comment on above: Performed By: #### H EMDF, LIPA4, LACTS, CMP3M #### [facility] [address] [place] [address] Glucose [Mass/Vol] 394 mg/dL High 70-100 [facility] Comment on above: Performed By: #### H EMDF, LIPA4, LACTS, CMP3M #### [facility] [address] [place] [address] Protein [Mass/Vol] 6.8 g/dL Normal 6.3-8.2 [facility] Comment on above: Performed By: #### H EMDF, LIPA4, LACTS, CMP3M #### [facility] [address] [place] [address] Urea nitrogen [Mass/Vol] 47 mg/dL High 9-20 [facility] Comment on above: Performed By: #### H EMDF, LIPA4, LACTS, CMP3M #### [facility] [address] [place] [address] Bilirubin [Mass/Vol] 0.5 mg/dL Normal 0.2-1.3 [facility] Comment on above: Performed By: #### H EMDF, LIPA4, LACTS, CMP3M #### [facility] [address] [place] [address] Creatinine [Mass/Vol] 2.31 mg/dL High 0.52-1.25 [facility] Comment on above: Performed By: #### H EMDF, LIPA4, LACTS, CMP3M #### [facility] [address] [place] [address] GFR/1.73 sq M.predicted among blacks MDRD (S/P/Bld) [Vol rate/Area] 25.0 mL/min/{1.73_m2} Abnormal >60 [facility] Comment on above: Performed By: #### H EMDF, LIPA4, LACTS, CMP3M #### [facility] [address] [place] [address] GFR/1.73 sq M.predicted among non-blacks MDRD (S/P/Bld) [Vol rate/Area] 21.6 mL/min/{1.73_m2} Abnormal >60 [facility] Comment on above: Result Comment: KDIG [...] #### H EMDF, LIPA4, LACTS, CMP3M #### [facility] [address] [place] [address] Albumin [Mass/Vol] 3.5 g/dL Normal 3.5-5.0 [facility] Comment on above: Performed By: #### H EMDF, LIPA4, LACTS, CMP3M #### [facility] [address] [place] [address] Chloride [Moles/Vol] 103 mmol/L Normal 98-107 [facility] Comment on above: Performed By: #### H EMDF, LIPA4, LACTS, CMP3M #### [facility] [address] [place] [address] Potassium [Moles/Vol] 4.7 mmol/L Normal 3.5-5.1 [facility] Comment on above: Performed By: #### H EMDF, LIPA4, LACTS, CMP3M #### [facility] [address] [place] [address] Sodium [Moles/Vol] 135 mmol/L Normal 135-145 [facility] Comment on above: Performed By: #### H EMDF, LIPA4, LACTS, CMP3M #### [facility] [address] [place] [address] Complete Urinalysison 2020 Appearance (U) Clear Normal Clear [facility] Comment on above: Result Comment: . Performed By: #### L ACTS #### [facility] [address] [place] [address] Bacteria Few Abnormal Negative [facility] Comment on above: Result Comment: . Performed By: #### L ACTS #### [facility] [address] [place] [address] Bilirubin,Urine Negative Normal Negative [facility] Comment on above: Result Comment: . Performed By: #### L ACTS #### [facility] [address] [place] [address] Color (U) Light-Yellow Normal Lt. Yellow [facility] Comment on above: Result Comment: . Performed By: #### L ACTS #### [facility] [address] [place] [address] Glucose Ql (U) 1,000 mg/dL Abnormal Normal (<70) [facility] Comment on above: Result Comment: . Performed By: #### L ACTS #### [facility] [address] [place] [address] Ketone,Urine Negative Normal Negative [facility] Comment on above: Result Comment: . Performed By: #### L ACTS #### [facility] [address] [place] [address] Leukocytes,Urine 75 Ha/uL Abnormal Negative [facility] Comment on above: Result Comment: . Performed By: #### L ACTS #### [facility] [address] [place] [address] Mucous Threads Few Normal Negative [facility] Comment on above: Result Comment: . Performed By: #### L ACTS #### [facility] [facility] [address] [place] [address] Nitrites,Urine Negative Normal Negative [facility] Comment on above: Result Comment: . Performed By: #### L ACTS #### [facility] [address] [place] [address] Occult Blood,Urine Negative Normal Negative [facility] Comment on above: Result Comment: . Performed By: #### L ACTS #### [facility] [address] [place] [address] pH,Urine 5.5 Normal 5.0-8.0 [facility] Comment on above: Result Comment: . Performed By: #### L ACTS #### [facility] [address] [place] [address] Protein (U) [Mass/Vol] 20 mg/dL Abnormal Negative [facility] Comment on above: Result Comment: . Performed By: #### L ACTS #### [facility] [address] [place] [address] RBC, Urine 0 - 2 Normal 0-2 [facility] Comment on above: Result Comment: . Performed By: #### L ACTS #### [facility] [address] [place] [address] Specific [place],Urine 1.010 Normal 1.005 - 1.030 [facility] Comment on above: Result Comment: . Performed By: #### L ACTS #### [facility] [address] [place] [address] Squamous Epithelial 3 - 5 Normal 3-5 [facility] Comment on above: Result Comment: . Performed By: #### L ACTS #### [facility] [address] [place] [address] Urobilinogen,Urine Normal Normal Normal (0-1) [facility] Comment on above: Result Comment: . Performed By: #### L ACTS #### [facility] [address] [place] [address] WBC, Urine 11 - 25 Abnormal 0-5 [facility] Comment on above: Result Comment: . Performed By: #### L ACTS #### [facility] [address] [place] [address] Comprehensive Metabolic Pane wade 10-02-2021 Albumin [Mass/Vol] [...] - 1.25 mg/dL [facility] EGFR IF NonAfrican Dominican 21.9 mL/min Abnormal >60 [facility] Free PSA/Total [...] 46 mg/dL High 9 - 20 mg/dL [facility] Comprehensive Metabolic Pane l w/ Reflex to MGon 10-02-2021 Albumin [Mass/Vol] 3.5 g/dL 3.5 - 5.0 g/dL [facility] Work Phone: ALP (Bld) [Catalytic activity/Vol] 140 U/L High 38 - 126 U/L [facility] Work Phone: [phone] ALT [Catalytic activity/Vol] 19 U/L 0 - 34 U/L [facility] Work Phone: [phone] Anion gap [Moles/Vol] 7 mmol/L 3 - 13 mmol/L [facility] Work Phone: [phone] AST [Catalytic activity/Vol] 33 U/L 15 - 46 U/L [facility] Work Phone: [phone] Bilirubin [Mass/Vol] 0.5 mg/dL 0.2 - 1 .3 mg/dL [facility] Work Phone: [phone] Calcium [Mass/Vol] 8.5 mg/dL 8.4 - 10. 4 mg/dL [facility] Work Phone: [phone] Chloride [Moles/Vol] 103 mmol/L 98 - 10 7 mmol/L [facility] Work Phone: [phone] CO2 [Moles/Vol] 25 mmol/L 22 - 30 mmol/L [facility] Work Phone: [phone] Creatinine [Mass/Vol] 2.31 mg/dL High 0.52 - 1.25 mg/dL [facility] Work Phone: [phone] EGFR IF NonAfrican Dominican 21.6 mL/min Abnormal >60 [facility] Work Phone: [phone] Free PSA/Total PSA [Mass fraction] 6.8 g/dL 6.3 - 8.2 g/dL [facility] Work Phone: [phone] GFR/1.73 sq M.predicted among blacks MDRD (S/P/Bld) [Vol rate/Area] 25.0 mL/min/{1.73_m2} Abnormal >60 [facility] Work Phone: [phone] Glucose [Mass/Vol] 394 mg/dL High 70 - 100 mg/dL [facility] Work Phone: [phone] Interpretation and review of laboratory results Abnormal [facility] Work Phone: [phone] Potassium [Moles/Vol] 4.7 mmol/L 3.5 - 5.1 mmol/L [facility] Work Phone: [phone] Sodium [Moles/Vol] 135 mmol/L 135 - 145 mmol/L [facility] Work Phone: Urea nitrogen (BldV) [Mass/Vol] 47 mg/dL High 9 - 20 mg/dL [facility] Work Phone: ED Provider Noteon 1 ED Provider Note [facility] DEPARTMENT ENCOUNTER Pt Name: Kimberly Patel Birthdate 1955 Date of evaluation: 10/01/2021 Provider: Quqiue Aranda MD CHIEF COMPLAINT Chief Complaint Patient [...] and Family: Not on file ? Attends [employer]: Not on file ? Active Member [...] Result Date: 10/02/2021 Patient Name: KIMBERLY PATEL [facility]#: [id number] Computed Tomography ACCESSION EXAM DATE/TIME PROCEDURE ORDERING PROVIDER [id number] 10/02/2021 02:[address] Head or Brain w/o 58QUIQUE HAYDEN Contrast CPT code 00361 Reason For Exam (CT Head or Brain w/o Contrast) change in mental status Report CLINICAL INDICATION: change in mental status COMPARISON: None Technique: Unenhanced [address] images were obtained from skull base to vertex. Images were reformatted in coronal and sagittal projections. Findings (more content not included)... Normal [facility] EKG 12 leadon 10-02-2021 [facility] Work Phone: EKG 12 leadOrdered By: Suzanna Canela on 10-02-2021 [facility] Work Phone: Glucose,Bedsideon 10-02-2021 Glucose [Mass/Vol] 314 mg/dL High 70-100 [facility] Comment on above: Result Comment: Test performed by glucose meter. Results may be 10%-15% lower than serum/plasma values. (CLIA ID [id number]) Performed By: #### H EMDF, LIPA4, LACTS, CMP3M #### [facility] [address] [place] [address] Hemogram w/ Autodiffon 10-02 Abs Baso Cnt 0.0 10*3/uL Normal 0.0-0.2 [facility] Comment on above: Performed By: #### H EMDF, LIPA4, LACTS, CMP3M #### [facility] [address] [place] [address] Abs Neutrophile Cnt 13.7 10*3/uL High 1.8-7.0 [facility] Comment on above: Performed By: #### H EMDF, LIPA4, LACTS, CMP3M #### [facility] [address] [place] [address] Basophils/100 WBC (Bld) 0.1 % Normal 0.0-2.0 [facility] Comment on above: Performed By: #### H EMDF, LIPA4, LACTS, CMP3M #### [facility] [address] [place] [address] Eosinophils (Bld) [#/Vol] 0.0 10*3/uL Normal 0.0-0.5 [facility] Comment on above: Performed By: #### H EMDF, LIPA4, LACTS, CMP3M #### [facility] [address] [place] [address] Eosinophils/100 WBC (Bld) 0.2 % Low 1.0-6.0 [facility] Comment on above: Performed By: #### H EMDF, LIPA4, LACTS, CMP3M #### [facility] [address] [place] [address] Erythrocyte distribution width (RBC) [Ratio] 16.6 % High 11.5-14.5 [facility] Comment on above: Performed By: #### H EMDF, LIPA4, LACTS, CMP3M #### [facility] [address] [place] [address] Granulocytes/100 WBC (Bld) 96.7 % High 40.0-80.0 [facility] Comment on above: Performed By: #### H EMDF, LIPA4, LACTS, CMP3M #### [facility] [address] [place] [address] Hematocrit (Bld) [Volume fraction] 31.7 % Low 35.0-47.0 [facility] Comment on above: Performed By: #### H EMDF, LIPA4, LACTS, CMP3M #### [facility] [address] [place] [address] Hemoglobin (Bld) [Mass/Vol] 10.3 g/dL Low 11.7-16.0 [facility] Comment on above: Performed By: #### H EMDF, LIPA4, LACTS, CMP3M #### [facility] [address] [place] [address] Lymphocytes (Bld) [#/Vol] 0.2 10*3/uL Low 1.0-4.3 [facility] Comment on above: Performed By: #### H EMDF, LIPA4, LACTS, CMP3M #### [facility] [address] [place] [address] Lymphocytes/100 WBC (Bld) 1.6 % Low 20.0-40.0 [facility] Comment on above: Performed By: #### H EMDF, LIPA4, LACTS, CMP3M #### [facility] [address] [place] [address] MCH (RBC) [Entitic mass] 26.9 pg Normal 26.0-34.0 [facility] Comment on above: Performed By: #### H EMDF, LIPA4, LACTS, CMP3M #### [facility] [address] [place] [address] MCHC 32.4 % Normal 32.0-36.0 [facility] Comment on above: Performed By: #### H EMDF, LIPA4, LACTS, CMP3M #### [facility] [address] [place] [address] MCV (RBC) [Entitic vol] 82.8 fL Normal 79.0-98.0 [facility] Comment on above: Performed By: #### H EMDF, LIPA4, LACTS, CMP3M #### [facility] [address] [place] [address] Monocytes (Bld) [#/Vol] 0.2 10*3/uL Normal 0.0-0.8 [facility] Comment on above: Performed By: #### H EMDF, LIPA4, LACTS, CMP3M #### [facility] [address] [place] [address] Monocytes/100 WBC (Bld) 1.4 % Low 2.0-10.0 [facility] Comment on above: Performed By: #### H EMDF, LIPA4, LACTS, CMP3M #### [facility] [address] [place] [address] Platelet mean volume (Bld) [Entitic vol] 6.7 fL Low 7.4-10.4 [facility] Comment on above: Performed By: #### H EMDF, LIPA4, LACTS, CMP3M #### [facility] [address] [place] [address] Platelets (Bld) [#/Vol] 228 10*3/uL Normal 140-440 [facility] Comment on above: Performed By: #### H EMDF, LIPA4, LACTS, CMP3M #### [facility] [address] [place] [address] RBC (Bld) [#/Vol] 3.83 10*6/uL Normal 3.80-5.20 [facility] Comment on above: Performed By: #### H EMDF, LIPA4, LACTS, CMP3M #### [facility] [address] [place] [address] WBC (Bld) [#/Vol] 14.2 10*3/uL High 3.6-10.7 [facility] Comment on above: Performed By: #### H EMDF, LIPA4, LACTS, CMP3M #### [facility] [address] [place] [address] Lactate, Sepsison 10-02-2021 Lactate [Moles/Vol] 1.8 mmol/L 0.7 - 2. 0 mmol/L [facility] Lactate [Moles/Vol] 2 mmol/L 0.7 - 2. 0 mmol/L [facility] Work Phone: [phone] [facility] Work Phone: [phone] Interpretation and review of laboratory results Abnormal [facility] Work Phone: [phone] Lactate [Moles/Vol] 3.2 mmol/L Critically high 0.7 - 2.0 mmol/L [facility] Work Phone: [phone] [facility] Work Phone: [phone] Lactic Acid, Sepsison 2020 Lactate [Moles/Vol] 1.8 mmol/L Normal 0.7-2.0 [facility] Comment on above: Performed By: #### C MP3Travis, MD ROMEOIFF #### [facility] [address] [place] [address] #### PCAL #### [facility] [address] [place] [address] Lactate [Moles/Vol] 2.0 mmol/L Normal 0.7-2.0 [facility] Comment on above: Performed By: #### H EMDF, LIPA4, LACTS, CMP3M #### [facility] [address] [place] [address] Lactate [Moles/Vol] 3.2 mmol/L Critically high 0.7-2.0 [facility] Comment on above: Performed By: #### L ACTS #### [facility] [address] [place] [address] Lipaseon 10-02-2021 Lipase [Catalytic activity/Vol] 134 U/L Normal 23-300 [facility] Comment on above: Performed By: #### H EMDF, LIPA4, LACTS, CMP3M #### [facility] [address] [place] [address] Lipase [Catalytic activity/Vol] 134 U/L 23 - 300 U/L [facility] Work Phone: No Panel Informationon 10-02 [facility] Work Phone: POCT Arterialon 10-02-2021 Base Excess, Arterial -1.0 mmol/L -3.0 - 3.0 mmol/L [facility] CO2 [Moles/Vol] 24.8 mmol/L 23.0 - 27.0 mmol/L [facility] FIO2 Arterial 4 [facility] HCO3 (Bld) [Moles/Vol] 23.6 mmol/L 21.0 - 25.0 mmol/L [facility] Oxygen saturation in Blood 96.7 % 95.0 - 100.0 % [facility] pCO2, Arterial 38.1 mm[Hg] 35.0 - 45.0 mm[Hg] [facility] pH, Arterial 7.400 [facility] pO2, Arterial 86.9 mm[Hg] 80.0 - 100.0 mm[Hg] [facility] POCT Glucoseon 10-02-2021 Glucose [Mass/Vol] 221 mg/dL High 70 - 100 mg/dL [facility] Interpretation and review of laboratory results Abnormal [facility] Glucose [Mass/Vol] 314 mg/dL High 70 - 100 mg/dL [facility] Interpretation and review of laboratory results Abnormal [facility] Procalcitoninon 10-02-2021 Interpretation See Below [facility] Interpretation and review of laboratory results Abnormal [facility] Procalcitonin 75.82 ng/mL High 0.00 - 0.09 ng/mL [facility] Interpretation See Below Normal [facility] Comment on above: Result Comment: PCT <0.50 = Low risk of severe sepsis and/or septic shock. PCT >2.00 = High risk of severe sepsis and/or septic shock. Performed By: #### H EMDF, LIPA4, LACTS, CMP3M #### [facility] [address] [place] [address] SARS-CoV-2, Flu A/B and RSVo n 10-02-2021 SARS-CoV-2 (COVID-19) RNA IGGY+probe Ql (Unsp spec) SARS-CoV-2 --> Status: F Not Detected. Flu A PCR --> Status: F Not Detected. Flu B PCR --> Status: F Not Detected. RSV PCR --> Status: F Not Detected. Expected Result: Not Detected _ Method: Real-time, RT-PCR This assay was developed by [employer] and distributed under an Emergency Use Authorization (EUA) granted by the FDA for the qualitative detection of nucleic acids from SARS-CoV-2, Influenza A, Influenza B, and Respiratory Syncytial Virus. Provider and patient fact sheets can be found at https://www.fda.gov/med ia/414563/download and https://www.fda.gov/med ia/375960/download. Expected Result: Not Detected _ Method: Real-time, RT-PCR This assay was developed by [employer] and distributed under an Emergency Use Authorization (EUA) granted by the FDA for the qualitative detection of nucleic acids from SARS-CoV-2, Influenza A, Influenza B, and Respiratory Syncytial Virus. Provider and patient fact sheets can be found at https://www.fda.gov/med ia/606868/download and https://www.fda.gov/med ia/325001/download. Normal [facility] Comment on above: Performed By: #### L ACTS #### [facility] [address] [place] [place] [address] Urinalysison 10-02-2021 Appearance (U) Clear Clear NA [facility] Work Phone: [phone] Bacteria, UA Few Abnormal Negative /[HPF] [facility] Work Phone: 1 Bilirubin Urine Negative Negative mg/dL [facility] Work Phone: 1 Color (U) Light-Yellow Lt. Yellow NA [facility] Work Phone: 1 Glucose, Ur 1,000 Abnormal Normal (<70) mg/dL [facility] Work Phone: 1 Interpretation and review of laboratory results Abnormal [facility] Work Phone: 1 Ketones Ql (U) Negative Negative mg/dL [facility] Work Phone: 1 LEUKOCYTES, UA 75 Abnormal Negative Ha/uL [facility] Work Phone: 1 Mucous Threads Few Negative /[LPF] [facility] Work Phone: 1 Nitrite, Urine Negative Negative NA [facility] Work Phone: 1 Occult Blood,Urine Negative Negative mg/dL [facility] Work Phone: 1 pH (U) 5.5 [pH] [facility] Work Phone: 1 Protein (U) [Mass/Vol] 20 mg/dL Abnormal Negative [facility] Work Phone: 1 RBC, UA 0-2 0 - 2 /[HPF] [facility] Work Phone: 1 Specific [place], Urine 1.010 S [facility] Work Phone: 1 22 Squam Epithel, UA 3-5 3 - 5 /[HPF] [facility] Work Phone: 1 Urobilinogen, Urine Normal Normal (0-1) mg/dL [facility] Work Phone: 1 22 WBC, UA 11-25 Abnormal 0 - 5 /[HPF] [facility] Work Phone: 1 [facility] Work Phone: XR CHEST PORTABLEon 10-02-20 [facility] RAD [facility] Work Phone: Radiology Study observation (narrative) [facility] Work Phone: XR CHEST PORTABLEOrdered By: Elly Morrow on 10-02-2021 [facility] Work Phone: XR CHEST 1V FRONTALon 2020 XR CHEST 1V FRONTAL Final Report DATE OF EXAM: Nov 29 2020 7:47AM [facility] 5290 - XR CHEST 1V FRONTAL / PROCEDURE REASON: Acute respiratory illness Physician Interpretation EXAMINATION: CHEST RADIOGRAPH (SINGLE VIEW AP OR PA) CLINICAL HISTORY: Acute respiratory illness MQ: [id number] Comparison: Chest x-ray November 27, 2020 RESULT: Lines, tubes, and devices: associate loan officer leads overlie the thorax Lungs and pleura: No consolidation. No lung mass. No pleural effusion. Cardiomediastinal silhouette: Normal cardiomediastinal silhouette. Other: Osseous structures are unremarkable. IMPRESSION: No acute radiographic abnormality. Customer Experience Associate: [employer] Transcribe Date/Time: Nov 29 2020 8:05A Dictated by : JANIE THOMAS MD This examination was interpreted and the report reviewed and electronically signed by: JANIE THOMAS MD on Nov 29 2020 8:05AM EST Normal [facility] CT TIB-FIB WO IVCON LTon CT TIB-FIB WO IVCON LT Final Report DATE OF EXAM: Nov 28 2020 4:47PM [facility] 0092 - CT TIB-FIB WO IVCON LT [...] both knees is likely due to osteoarthritis. Customer Experience Associate: [facility] Transcribe Date/Time: Nov 28 2020 9:48P Dictated by : CARMEN GERBER MD This examination was interpreted and the report reviewed and electronically signed by: CARMEN GERBER MD on Nov 28 2020 10:07PM [facility] Normal [facility] CT TIB-FIB WO IVCON RTon CT TIB-FIB WO IVCON RT Final Report DATE OF EXAM: Nov 28 2020 4:47PM [facility] 0093 - CT TIB-FIB WO IVCON RT [...] both knees is likely due to osteoarthritis. Customer Experience Associate: [employer] Transcribe Date/Time: Nov 28 2020 9:48P Dictated by : CARMEN GERBER MD This examination was interpreted and the report reviewed and electronically signed by: CARMEN GERBER MD on Nov 28 2020 10:07PM EST Normal [facility] XR CHEST 1V FRONTALon 2020 XR CHEST [...] vascular congestion with viral pneumonitis not excluded. Customer Experience Associate: [facility] Transcribe Date/Time: Nov 27 2020 11:51P Dictated by : JALEN GARCIA MD This examination was interpreted and the report reviewed and electronically signed by: JALEN GARCIA MD on Nov 27 2020 11:54PM EST Normal [facility] CT BRAIN WO IVCONon 11-22-19 CT BRAIN WO IVCON Final Report DATE OF EXAM: Nov 22 2020 5:44PM [facility] 0504 - CT BRAIN WO IVCON / PROCEDURE REASON: Head trauma, minor, pt on anticoagulation Physician Interpretation EXAMINATION: CT BRAIN WO IVCON, CT CERVICAL SPINE WO IVCON CLINICAL HISTORY: Head trauma, minor, pt on anticoagulation (accession [id number]), C-spine fx, traumatic (accession [id number]) TECHNIQUE: Serial axial images without IV contrast [...] base and imaged soft tissues are unremarkable. Chute Builder (topogram) images: No additional findings. EXAMINATION: CT BRAIN WO IVCON, CT CERVICAL SPINE WO IVCON CLINICAL HISTORY: Head trauma, minor, pt on anticoagulation (accession [id number]), C-spine fx, traumatic (accession [id number]) TECHNIQUE: CT of the cervical spine without [...] Counting reference: Craniocervical junction. Anatomic Variants: None. Chute Builder (topogram) images: No additional findings. Alignment: Alignment [...] vertebrae with counting from the craniocervical junction. Customer Experience Associate: [employer] Transcribe Date/Time: Nov 22 2020 5:48P Dictated by : QUIQUE CORRAL MD This examination was interpreted and the report reviewed and electronically signed by: QUIQUE CORRAL MD on Nov 22 2020 6:02PM EST Normal [facility] CT CERVICAL SPINE WO IVCONon 11-22-2020 CT CERVICAL SPINE WO IVCON Final Report DATE OF EXAM: Nov 22 2020 5:44PM [facility] 0505 - CT CERVICAL SPINE WO IVCON / PROCEDURE REASON: C-spine fx, traumatic Physician Interpretation EXAMINATION: CT BRAIN WO IVCON, CT CERVICAL SPINE WO IVCON CLINICAL HISTORY: Head trauma, minor, pt on anticoagulation (accession [id number]), C-spine fx, traumatic (accession [id number]) TECHNIQUE: Serial axial images without IV contrast [...] base and imaged soft tissues are unremarkable. Chute Builder (topogram) images: No additional findings. EXAMINATION: CT BRAIN WO IVCON, CT CERVICAL SPINE WO IVCON CLINICAL HISTORY: Head trauma, minor, pt on anticoagulation (accession [id number]), C-spine fx, traumatic (accession [id number]) TECHNIQUE: CT of the cervical spine without [...] Counting reference: Craniocervical junction. Anatomic Variants: None. Chute Builder (topogram) images: No additional findings. Alignment: Alignment [...] vertebrae with counting from the craniocervical junction. Customer Experience Associate: [employer] Transcribe Date/Time: Nov 22 2020 5:48P Dictated by : QUIQUE CORRAL MD This examination was interpreted and the report reviewed and electronically signed by: QUIQUE CORRAL MD on Nov 22 2020 6:02PM EST Normal [facility] XR CHEST 1V FRONTALon 2019 XR CHEST [...] significant pleural effusion. 3. Coronary artery calcifications. Customer Experience Associate: [facility] Transcribe Date/Time: Oct 13 2020 3:35P Dictated by : SCOTT OTERO MD This examination was interpreted and the report reviewed and electronically signed by: SCOTT OTERO MD on Oct 13 2020 3:38PM EST Normal [facility] XR CHEST 1V FRONTALon 2019 XR CHEST [...] technique. Other: IMPRESSION: No acute radiographic abnormality. Customer Experience Associate: [facility] Transcribe Date/Time: Oct 10 2020 5:20P Dictated by : CARMEN GERBER MD This examination was interpreted and the report reviewed and electronically signed by: CARMEN GERBER MD on Oct 10 2020 5:25PM EST Normal [facility] CBC W/DIFFon 04-12-2020 BASO ABS 0.00 K/CU MM Normal 0-0.2 [facility] Comment on above: Performed By: #### L 500.52424, L500.92488, L500.12879, L500.31171, L500.30801 #### [facility] [address] [place] [address] Basophils/100 WBC (Bld) 0.3 % Normal 0-2 M [facility] Comment on above: Performed By: #### L 500.59596, L500.60126, L500.85995, L500.69630, L500.13179 #### [facility] [address] [place] [address] EOS ABS 0.20 K/CU MM Normal 0-0.5 [facility] Comment on above: Performed By: #### L 500.77162, L500.48333, L500.11724, L500.57127, L500.44496 #### [facility] [address] [place] [address] Eosinophils/100 WBC (Bld) 2.3 % Normal 0-5 [facility] Comment on above: Performed By: #### L 500.75540, L500.22657, L500.53857, L500.31262, L500.22401 #### [facility] [address] [place] [address] Erythrocyte distribution width (RBC) [Ratio] 18.8 % High 11-14.5 [facility] Comment on above: Performed By: #### L 500.71608, L500.79461, L500.61912, L500.65123, L500.00243 #### [facility] [address] [place] [address] Hematocrit (Bld) [Volume fraction] 35.0 % Normal 35.0-47.0 [facility] Comment on above: Performed By: #### L 500.29760, L500.53270, L500.22643, L500.90498, L500.68645 #### [facility] [address] [place] [address] Hemoglobin (Bld) [Mass/Vol] 9.7 g/dL Low 11.5-15.5 [facility] Comment on above: Performed By: #### L 500.80239, L500.32608, L500.15171, L500.80359, L500.50272 #### [facility] [address] [place] [address] IMMATR GRAN ABS 0.10 K/CU MM Normal Less than 2 [facility] Comment on above: Performed By: #### L 500.88520, L500.03570, L500.67358, L500.50325, L500.74243 #### [facility] [address] [place] [address] IMMATURE GRAN % 1.4 % Normal Less than 2 [facility] Comment on above: Performed By: #### L 500.82574, L500.55400, L500.72997, L500.26335, L500.22074 #### [facility] [address] [place] [address] Lymphocytes (Bld) [#/Vol] 1.30 K/CU MM Normal 0.9-4.4 [facility] Comment on above: Performed By: #### L 500.46128, L500.49422, L500.76500, L500.64416, L500.52882 #### [facility] [address] [place] [address] Lymphocytes/100 WBC (Bld) 15.5 % Low 20-40 [facility] Comment on above: Performed By: #### L 500.17946, L500.99862, L500.81670, L500.75769, L500.23191 #### [facility] [address] [place] [address] MCHC (RBC) [Mass/Vol] 27.7 g/dL Low 32.0-36.0 [facility] Comment on above: Performed By: #### L 500.36544, L500.08089, L500.02992, L500.15846, L500.99255 #### [facility] [address] [place] [address] MCV (RBC) [Entitic vol] 84.7 fL Normal 80.0-99.0 M [facility] Comment on above: Performed By: #### L 500.34771, L500.83672, L500.26085, L500.74248, L500.36250 #### [facility] [address] [place] [address] MONO ABS 0.50 K/CU MM Normal 0.1-1.1 [facility] Comment on above: Performed By: #### L 500.50918, L500.67671, L500.82476, L500.57322, L500.11493 #### [facility] [address] [place] [address] Monocytes/100 WBC (Bld) 6.0 % Normal 2-10 M [facility] Comment on above: Performed By: #### L 500.09254, L500.21493, L500.82577, L500.34433, L500.63450 #### [facility] [address] [place] [address] NEUTROPHIL ABS 6.40 K/CU MM Normal 2.0-8.3 [facility] Comment on above: Performed By: #### L 500.50995, L500.38956, L500.55262, L500.93793, L500.63008 #### [facility] [address] [place] [address] Neutrophils/100 WBC (Bld) 74.5 % Normal 45-75 [facility] Comment on above: Performed By: #### L 500.93849, L500.68234, L500.27199, L500.95045, L500.89547 #### [facility] [address] [place] [address] Nucleated RBC/100 WBC (Bld) [Ratio] 0.0 % Normal Less than 1 [facility] Comment on above: Performed By: #### L 500.31105, L500.29776, L500.75205, L500.25738, L500.04665 #### [facility] [address] [place] [address] Platelet mean volume (Bld) [Entitic vol] 8.7 fL Low 9.4-12.4 [facility] Comment on above: Performed By: #### L 500.87675, L500.65692, L500.89971, L500.15901, L500.41715 #### [facility] [address] [place] [address] Platelets (Bld) [#/Vol] 339 K/CU MM Normal 150-450 [facility] Comment on above: Performed By: #### L 500.93502, L500.40025, L500.31878, L500.85676, L500.06823 #### [facility] [address] [place] [address] RBC (Bld) [#/Vol] 4.13 M/CU MM Normal 3.90-5.30 [facility] Comment on above: Performed By: #### L 500.32186, L500.22427, L500.30873, L500.48912, L500.49971 #### [facility] [address] [place] [address] WBC (Bld) [#/Vol] 8.6 K/CUMM Normal 4.5-11.0 [facility] Comment on above: Performed By: #### L 500.12804, L500.30776, L500.73975, L500.02826, L500.14511 #### [facility] [place] [id number] CMPon 04-12-2020 Albumin [Mass/Vol] 3.4 g/dL Normal 3.2-5.0 [facility] Comment on above: Performed By: #### L 500.24188, L500.93431, L500.03574, L500.93167, L500.57183 #### [facility] [address] [place] [address] Albumin/Globulin [Mass ratio] 0.9 {ratio} Normal 0.8-2.0 [facility] Comment on above: Performed By: #### L 500.05233, L500.72738, L500.38017, L500.42621, L500.73681 #### [facility] [address] [place] [address] ALK PHOS 90 U/L Normal 45-117 [facility] Comment on above: Performed By: #### L 500.11721, L500.75326, L500.87228, L500.70993, L500.39523 #### [facility] [address] [place] [address] ALT [Catalytic activity/Vol] 21 U/L Normal 13-61 [facility] Comment on above: Result Comment: RESU LTS MAY BE FALSELY DEPRESSED AFTER THE ADMINISTRATION OF SULFASALAZINE AND/OR SULFAPYRIDINE. Performed By: #### L 500.14731, L500.42301, L500.71851, L500.97964, L500.73006 #### [facility] [address] [place], [place] [id number] Anion gap [Moles/Vol] 9 mmol/L Normal 5-16 [facility] Comment on above: Performed By: #### L 500.61206, L500.15084, L500.26976, L500.63300, L500.69193 #### [facility] [address] [place] [address] BILI TOTAL 0.5 MG/DL Normal 0.2-1.0 [facility] Comment on above: Performed By: #### L 500.00347, L500.21570, L500.48388, L500.97230, L500.39266 #### [facility] [address] [place] [address] Calcium [Mass/Vol] 9.0 mg/dL Normal 8.5-10.1 [facility] Comment on above: Performed By: #### L 500.58648, L500.77895, L500.51883, L500.24277, L500.61513 #### [facility] [address] [place] [address] Chloride [Moles/Vol] 98 mmol/L Normal 98-107 [facility] Comment on above: Performed By: #### L 500.65501, L500.09501, L500.57298, L500.16459, L500.17434 #### [facility] [address] [place] [address] CO2 [Moles/Vol] 30 mmol/L Normal 21-32 [facility] Comment on above: Performed By: #### L 500.31569, L500.81939, L500.47596, L500.42579, L500.20123 #### [facility] [address] [place], [place] [id number] Creatinine [Mass/Vol] 1.110 mg/dL High 0.510-0.950 [facility] Comment on above: Result Comment: Brendon ents receiving either N-Acetylcysteine (NAC) or Metamizole prior to venipuncture, may have falsely depressed results. Performed By: #### L 500.70551, L500.46424, L500.84261, L500.31140, L500.28796 #### [facility] [place] [address] Globulin (S) [Mass/Vol] 3.7 g/dL Normal 2.2-4.2 M [facility] Comment on above: Performed By: #### L 500.34636, L500.85389, L500.69675, L500.69530, L500.05761 #### [facility] [address] [place], [place] [id number] Glucose [Mass/Vol] 183 mg/dL High 70-100 [facility] Comment on above: Result Comment: 70-1 00- Normal Fasting; 100-125 Impaired Fasting; greater than 126 on more than one result- Diabetes. ADA guidelines. Results may be falsely elevated after the administration of Sulfapyridine. Results may be falsely depressed after the administration of Sulfasalazine. Performed By: #### L 500.43106, L500.88766, L500.69896, L500.31972, L500.65690 #### [facility] [address] [place] [address] Potassium [Moles/Vol] 4.1 mmol/L Normal 3.5-5.1 [facility] Comment on above: Performed By: #### L 500.39860, L500.86538, L500.16473, L500.21885, L500.26650 #### [facility] [address] [place] [address] Protein [Mass/Vol] 7.1 g/dL Normal 6.0-8.5 [facility] Comment on above: Performed By: #### L 500.38416, L500.33928, L500.80077, L500.46188, L500.47569 #### [facility] [address] [place] [address] SGOT (AST) 10 U/L Normal 8-34 [facility] Comment on above: Result Comment: RESU LTS MAY BE FALSELY DEPRESSED AFTER THE ADMINISTRATION OF SULFASALAZINE AND/OR SULFAPYRIDINE. Performed By: #### L 500.60043, L500.47179, L500.40704, L500.21893, L500.70172 #### [facility] [address] [place] [address] Sodium [Moles/Vol] 137 mmol/L Normal 136-145 [facility] Comment on above: Performed By: #### L 500.38825, L500.18616, L500.08618, L500.13936, L500.63016 #### [facility] [address] [place] [address] Urea nitrogen [Mass/Vol] 31 mg/dL High 7- [facility] Comment on above: Performed By: #### L 500.32078, L500.68873, L500.44660, L500.11165, L500.80042 #### [facility] [address] [place] [address] Urea nitrogen/Creatinine [Mass ratio] 28 mg/mg High 15-24 [facility] Comment on above: Performed By: #### L 500.92740, L500.10795, L500.95419, L500.43178, L500.91244 #### [facility] [address] [place] [address] GFR ESTon 04-12-2020 IF AMER 60 ML/MIN Normal [facility] Comment on above: Performed By: #### L 500.86930, L500.19801, L500.47752, L500.73272, L500.14036 #### [facility] [address] [place] [address] IF non-AFR AMER 50 ML/MIN Normal [facility] Comment on above: Performed By: #### L 500.43120, L500.80269, L500.69755, L500.73220, L500.30395 #### [facility] [address] [place], [place] [id number] [facility] HbA1c (Bld) [Mass fraction] 8.3 % High 4.3-6.0 [facility] Comment on above: Performed By: #### L 500.08250, L500.91907, L500.99996, L500.87349, L500.85690 #### [facility] [address] [place] [address] LIPIDon 04-12-2020 Cholesterol [Mass/Vol] 190 mg/dL Normal 0-199 [facility] Comment on above: Performed By: #### L 500.37222, L500.74535, L500.37161, L500.09374, L500.47178 #### [facility] [address] [place] [address] Cholesterol in HDL [Mass/Vol] 47 mg/dL Normal [place] 40 [facility] Comment on above: Result Comment: Brendon ents receiving Metamizole prior to venipuncture, may have falsely depressed results. Performed By: #### L 500.20065, L500.67453, L500.87311, L500.89049, L500.61594 #### [facility] [address] [place], [place] [id number] Cholesterol in LDL [Mass/Vol] 92 mg/dL Normal 0-129 [facility] Comment on above: Result Comment: ___C HOLESTEROL/HDL RATIO RISK___ CHD RISK = Total CHOL LDL HDL (CHOL/HDL) Recommended <200 <130 >40 <3.4 Borderline 200-239 130-159 3.4-4.99 High >240 >160 >5.0 Performed By: #### L 500.17350, L500.14054, L500.46561, L500.38370, L500.06240 #### [facility] [address] [place] [id number] Triglyceride [Mass/Vol] 256 mg/dL High 30-149 M [facility] Comment on above: Result Comment: Brendon ents receiving either N-Acetylcysteine (NAC) or Metamizole prior to venipuncture, may have falsely depressed results. Performed By: #### L 500.22074, L500.78370, L500.11740, L500.33850, L500.28854 #### [facility] [address] [place] [address] .Auto Diffon 02-24-2020 Ammonia (P) [Mass/Vol] 0.90 10 3/mcL Normal 0.09-1.40 [facility] ([place]) Comment on above: Performed By: #### C AION, MG, TROPI, PHOS, CMP, PBNP, GFR, TSH, CBC, DIFF, MORPH #### [address] [address] Basophils (Bld) [#/Vol] 0.10 10 3/mcL Normal 0.00-0.27 [facility] ([place]) Comment on above: Performed By: #### C AION, MG, TROPI, PHOS, CMP, PBNP, GFR, TSH, CBC, DIFF, MORPH #### [address] [address] Basophils/100 WBC (Bld) 0.6 % Normal 0.0-2.5 [facility] ([place]) Comment on above: Performed By: #### C AION, MG, TROPI, PHOS, CMP, PBNP, GFR, TSH, CBC, DIFF, MORPH #### [address] [address] Eosinophils (Bld) [#/Vol] 0.60 10 3/mcL Normal 0.00-0.65 [facility] ([place]) Comment on above: Performed By: #### C AION, MG, TROPI, PHOS, CMP, PBNP, GFR, TSH, CBC, DIFF, MORPH #### [address] [address] Eosinophils/100 WBC (Bld) 6.7 % High 0.0-6.0 [facility] ([place]) Comment on above: Performed By: #### C AION, MG, TROPI, PHOS, CMP, PBNP, GFR, TSH, CBC, DIFF, MORPH #### [address] [address] Lymphocytes (Bld) [#/Vol] 1.70 10 3/mcL Normal 0.90-4.32 [facility] ([place]) Comment on above: Performed By: #### C AION, MG, TROPI, PHOS, CMP, PBNP, GFR, TSH, CBC, DIFF, MORPH #### [address] [address] Lymphocytes/100 WBC (Bld) 19.2 % Low 20.0-40.0 [facility] ([place]) Comment on above: Performed By: #### C AION, MG, TROPI, PHOS, CMP, PBNP, GFR, TSH, CBC, DIFF, MORPH #### [address] [address] Monocytes/100 WBC (Bld) 10.0 % Normal 2.0-13.0 [facility] ([place]) Comment on above: Performed By: #### C AION, MG, TROPI, PHOS, CMP, PBNP, GFR, TSH, CBC, DIFF, MORPH #### [address] [address] Neutrophils/100 WBC (Bld) 63.5 % Normal 50.0-75.0 [facility] ([place]) Comment on above: Performed By: #### C AION, MG, TROPI, PHOS, CMP, PBNP, GFR, TSH, CBC, DIFF, MORPH #### [address] [address] .GFRon 02-24-2020 GFR Non- 41 ml/min/1.73sqm Normal [facility] ([place]) Comment on above: Result Comment: GFR [...] PBNP, GFR, TSH, CBC, DIFF, MORPH #### [address] [address] GFR 49 ml/min/1.73sqm Normal [facility] ([place]) Comment on above: Result Comment: GFR Population [...] PBNP, GFR, TSH, CBC, DIFF, MORPH #### [address] [address] .NEUABSon 02-24-2020 Neutrophils (Bld) [#/Vol] 5.50 10 3/mcL Normal 2.25-8.10 [facility] ([place]) Comment on above: Performed By: #### C AION, MG, TROPI, PHOS, CMP, PBNP, GFR, TSH, CBC, DIFF, MORPH #### [address] [address] BMPon 02-24-2020 Creatinine [Mass/Vol] 1.32 mg/dL High 0.50-1.20 [facility] ([place]) Comment on above: Performed By: #### C AION, MG, TROPI, PHOS, CMP, PBNP, GFR, TSH, CBC, DIFF, MORPH #### [address] [address] Urea nitrogen/Creatinine [Mass ratio] 18.2 ratio Normal 10.0-22.0 [facility] ([place]) Comment on above: Performed By: #### C AION, MG, TROPI, PHOS, CMP, PBNP, GFR, TSH, CBC, DIFF, MORPH #### [address] [address] Calcium [Mass/Vol] 8.2 mg/dL Low 8.4-10.1 [facility] ([place]) Comment on above: Performed By: #### C AION, MG, TROPI, PHOS, CMP, PBNP, GFR, TSH, CBC, DIFF, MORPH #### [address] [address] Chloride [Moles/Vol] 100 mmol/L Normal 98-110 [facility] ([place]) Comment on above: Performed By: #### C AION, MG, TROPI, PHOS, CMP, PBNP, GFR, TSH, CBC, DIFF, MORPH #### [address] [address] CO2 [Moles/Vol] 30 mmol/L Normal 22-32 [facility] ([place]) Comment on above: Performed By: #### C AION, MG, TROPI, PHOS, CMP, PBNP, GFR, TSH, CBC, DIFF, MORPH #### [address] [address] Electrolyte Balance 7.0 mEq/L Normal 4.0-15.0 [facility] ([place]) Comment on above: Performed By: #### C AION, MG, TROPI, PHOS, CMP, PBNP, GFR, TSH, CBC, DIFF, MORPH #### [address] [address] Glucose [Mass/Vol] 190 mg/dL High 82-115 [facility] ([place]) Comment on above: Performed By: #### C AION, MG, TROPI, PHOS, CMP, PBNP, GFR, TSH, CBC, DIFF, MORPH #### [address] [address] Potassium [Moles/Vol] 4.4 mmol/L Normal 3.5-5.0 [facility] ([place]) Comment on above: Performed By: #### C AION, MG, TROPI, PHOS, CMP, PBNP, GFR, TSH, CBC, DIFF, MORPH #### [address] [address] Sodium [Moles/Vol] 137 mmol/L Normal 136-145 [facility] ([place]) Comment on above: Performed By: #### C AION, MG, TROPI, PHOS, CMP, PBNP, GFR, TSH, CBC, DIFF, MORPH #### [place] [id number] Urea nitrogen [Mass/Vol] 24.0 mg/dL High 8.0-22.0 [facility] ([place]) Comment on above: Performed By: #### C AION, MG, TROPI, PHOS, CMP, PBNP, GFR, TSH, CBC, DIFF, MORPH #### [place] [id number] CBCon 02-24-2020 Erythrocyte distribution width (RBC) [Ratio] 20.3 % High 11.5-15.5 [facility] ([place]) Comment on above: Performed By: #### C AION, MG, TROPI, PHOS, CMP, PBNP, GFR, TSH, CBC, DIFF, MORPH #### [place] [address] Hematocrit (Bld) [Volume fraction] 30.1 % Low 34.0-46.0 [facility] ([place]) Comment on above: Performed By: #### C AION, MG, TROPI, PHOS, CMP, PBNP, GFR, TSH, CBC, DIFF, MORPH #### [place] [address] Hemoglobin (Bld) [Mass/Vol] 9.3 G/dL Low 12.0-16.0 [facility] ([place]) Comment on above: Performed By: #### C AION, MG, TROPI, PHOS, CMP, PBNP, GFR, TSH, CBC, DIFF, MORPH #### [place] [id number] MCH (RBC) [Entitic mass] 24.0 pg Low 27.0-33.0 [facility] ([place]) Comment on above: Performed By: #### C AION, MG, TROPI, PHOS, CMP, PBNP, GFR, TSH, CBC, DIFF, MORPH #### [place] [id number] MCHC (RBC) [Mass/Vol] 31.0 G/dL Low 32.0-36.0 [facility] ([place]) Comment on above: Performed By: #### C AION, MG, TROPI, PHOS, CMP, PBNP, GFR, TSH, CBC, DIFF, MORPH #### [address] [address] MCV (RBC) [Entitic vol] 77.4 fL Low 80.0-99.0 A [facility] ([place]) Comment on above: Performed By: #### C AION, MG, TROPI, PHOS, CMP, PBNP, GFR, TSH, CBC, DIFF, MORPH #### [address] [address] Platelet mean volume (Bld) [Entitic vol] 6.6 fL Normal 6.6-10.5 [facility] ([place]) Comment on above: Performed By: #### C AION, MG, TROPI, PHOS, CMP, PBNP, GFR, TSH, CBC, DIFF, MORPH #### [address] [address] Platelets (Bld) [#/Vol] 434 10 3/mcL Normal 150-450 [facility] ([place]) Comment on above: Performed By: #### C AION, MG, TROPI, PHOS, CMP, PBNP, GFR, TSH, CBC, DIFF, MORPH #### [place] [phone] RBC (Bld) [#/Vol] 3.88 10 6/mcL Low 4.10-5.30 [facility] ([place]) Comment on above: Performed By: #### C AION, MG, TROPI, PHOS, CMP, PBNP, GFR, TSH, CBC, DIFF, MORPH #### [address] [address] WBC (Bld) [#/Vol] 8.70 10 3/mcL Normal 4.50-10.80 [facility] ([place]) Comment on above: Performed By: #### C AION, MG, TROPI, PHOS, CMP, PBNP, GFR, TSH, CBC, DIFF, MORPH #### [address] [address] OCC (LAB)on 02-24-2020 Occult Blood Fecal Negative Normal Negative [facility] ([place]) Comment on above: Result Comment: This test utilizes the guaiac fecal blood method, which detects peroxidase activity (heme) indicating bleeding from stomach, small intestine, or large intestine. If bleeding from either upper or lower gastrointestinal tract is a clinical consideration, the [facility] recommends the use of both the guaiac fecal blood test and the Immunochemical fecal blood test. Performed By: #### C AION, MG, TROPI, PHOS, CMP, PBNP, GFR, TSH, CBC, DIFF, MORPH #### [address] [address] .Auto Diffon 02-23-2020 Ammonia (P) [Mass/Vol] 0.70 10 3/mcL Normal 0.09-1.40 [facility] ([place]) Comment on above: Performed By: #### C AION, MG, TROPI, PHOS, CMP, PBNP, GFR, TSH, CBC, DIFF, MORPH #### [address] [address] Basophils (Bld) [#/Vol] 0.00 10 3/mcL Normal 0.00-0.27 [facility] ([place]) Comment on above: Performed By: #### C AION, MG, TROPI, PHOS, CMP, PBNP, GFR, TSH, CBC, DIFF, MORPH #### [address] [address] Basophils/100 WBC (Bld) 0.4 % Normal 0.0-2.5 [facility] ([place]) Comment on above: Performed By: #### C AION, MG, TROPI, PHOS, CMP, PBNP, GFR, TSH, CBC, DIFF, MORPH #### [address] [address] Eosinophils (Bld) [#/Vol] 0.50 10 3/mcL Normal 0.00-0.65 [facility] ([place]) Comment on above: Performed By: #### C AION, MG, TROPI, PHOS, CMP, PBNP, GFR, TSH, CBC, DIFF, MORPH #### [address] [address] Eosinophils/100 WBC (Bld) 7.7 % High 0.0-6.0 [facility] ([place]) Comment on above: Performed By: #### C AION, MG, TROPI, PHOS, CMP, PBNP, GFR, TSH, CBC, DIFF, MORPH #### [address] [address] Lymphocytes (Bld) [#/Vol] 1.40 10 3/mcL Normal 0.90-4.32 [facility] ([place]) Comment on above: Performed By: #### C AION, MG, TROPI, PHOS, CMP, PBNP, GFR, TSH, CBC, DIFF, MORPH #### [address] [address] Lymphocytes/100 WBC (Bld) 19.6 % Low 20.0-40.0 [facility] ([place]) Comment on above: Performed By: #### C AION, MG, TROPI, PHOS, CMP, PBNP, GFR, TSH, CBC, DIFF, MORPH #### [address] [address] Monocytes/100 WBC (Bld) 9.6 % Normal 2.0-13.0 [facility] ([place]) Comment on above: Performed By: #### C AION, MG, TROPI, PHOS, CMP, PBNP, GFR, TSH, CBC, DIFF, MORPH #### [address] [address] Neutrophils/100 WBC (Bld) 62.7 % Normal 50.0-75.0 [facility] ([place]) Comment on above: Performed By: #### C AION, MG, TROPI, PHOS, CMP, PBNP, GFR, TSH, CBC, DIFF, MORPH #### [address] [address] .GFRon 02-23-2020 GFR >60 Normal [facility] ([place]) Comment on above: Result Comment: GFR Population [...] PBNP, GFR, TSH, CBC, DIFF, MORPH #### [address] [address] GFR Non- 55 ml/min/1.73sqm Normal [facility] ([place]) Comment on above: Result Comment: GFR Population [...] PBNP, GFR, TSH, CBC, DIFF, MORPH #### [address] [address] .NEUABSon 02-23-2020 Neutrophils (Bld) [#/Vol] 4.40 10 3/mcL Normal 2.25-8.10 [facility] ([place]) Comment on above: Performed By: #### C AION, MG, TROPI, PHOS, CMP, PBNP, GFR, TSH, CBC, DIFF, MORPH #### [address] [address] BMPon 02-23-2020 Calcium [Mass/Vol] 8.0 mg/dL Low 8.4-10.1 [facility] ([place]) Comment on above: Performed By: #### C AION, MG, TROPI, PHOS, CMP, PBNP, GFR, TSH, CBC, DIFF, MORPH #### [address] [address] CO2 [Moles/Vol] 31 mmol/L Normal 22-32 [facility] ([place]) Comment on above: Performed By: #### C AION, MG, TROPI, PHOS, CMP, PBNP, GFR, TSH, CBC, DIFF, MORPH #### [address] [address] Creatinine [Mass/Vol] 1.02 mg/dL Normal 0.50-1.20 [facility] ([place]) Comment on above: Performed By: #### C AION, MG, TROPI, PHOS, CMP, PBNP, GFR, TSH, CBC, DIFF, MORPH #### [address] [address] Electrolyte Balance 7.0 mEq/L Normal 4.0-15.0 [facility] ([place]) Comment on above: Performed By: #### C AION, MG, TROPI, PHOS, CMP, PBNP, GFR, TSH, CBC, DIFF, MORPH #### [address] [address] Glucose [Mass/Vol] 162 mg/dL High 82-115 [facility] ([place]) Comment on above: Performed By: #### C AION, MG, TROPI, PHOS, CMP, PBNP, GFR, TSH, CBC, DIFF, MORPH #### [address] [address] Potassium [Moles/Vol] 4.2 mmol/L Normal 3.5-5.0 [facility] ([place]) Comment on above: Performed By: #### C AION, MG, TROPI, PHOS, CMP, PBNP, GFR, TSH, CBC, DIFF, MORPH #### [address] [address] Urea nitrogen [Mass/Vol] 15.0 mg/dL Normal 8.0-22.0 [facility] ([place]) Comment on above: Performed By: #### C AION, MG, TROPI, PHOS, CMP, PBNP, GFR, TSH, CBC, DIFF, MORPH #### [address] [address] Urea nitrogen/Creatinine [Mass ratio] 14.7 ratio Normal 10.0-22.0 [facility] ([place]) Comment on above: Performed By: #### C AION, MG, TROPI, PHOS, CMP, PBNP, GFR, TSH, CBC, DIFF, MORPH #### [address] [address] Chloride [Moles/Vol] 101 mmol/L Normal 98-110 [facility] ([place]) Comment on above: Performed By: #### C AION, MG, TROPI, PHOS, CMP, PBNP, GFR, TSH, CBC, DIFF, MORPH #### [address] [address] Sodium [Moles/Vol] 139 mmol/L Normal 136-145 [facility] ([place]) Comment on above: Performed By: #### C AION, MG, TROPI, PHOS, CMP, PBNP, GFR, TSH, CBC, DIFF, MORPH #### [address] [address] CBCon 02-23-2020 WBC (Bld) [#/Vol] 7.00 10 3/mcL Normal 4.50-10.80 [facility] ([place]) Comment on above: Result Comment: Capi llary or microtainer specimen received. Performed By: #### C AION, MG, TROPI, PHOS, CMP, PBNP, GFR, TSH, CBC, DIFF, MORPH #### [address] [address] Erythrocyte distribution width (RBC) [Ratio] 20.0 % High 11.5-15.5 [facility] ([place]) Comment on above: Performed By: #### C AION, MG, TROPI, PHOS, CMP, PBNP, GFR, TSH, CBC, DIFF, MORPH #### [place] [id number] Hematocrit (Bld) [Volume fraction] 29.0 % Low 34.0-46.0 [facility] ([place]) Comment on above: Performed By: #### C AION, MG, TROPI, PHOS, CMP, PBNP, GFR, TSH, CBC, DIFF, MORPH #### [place] [address] Hemoglobin (Bld) [Mass/Vol] 9.0 G/dL Low 12.0-16.0 [facility] ([place]) Comment on above: Performed By: #### C AION, MG, TROPI, PHOS, CMP, PBNP, GFR, TSH, CBC, DIFF, MORPH #### [place] [address] MCH (RBC) [Entitic mass] 23.6 pg Low 27.0-33.0 [facility] ([place]) Comment on above: Performed By: #### C AION, MG, TROPI, PHOS, CMP, PBNP, GFR, TSH, CBC, DIFF, MORPH #### [place] [phone] MCHC (RBC) [Mass/Vol] 31.2 G/dL Low 32.0-36.0 [facility] ([place]) Comment on above: Performed By: #### C AION, MG, TROPI, PHOS, CMP, PBNP, GFR, TSH, CBC, DIFF, MORPH #### [place] [address] MCV (RBC) [Entitic vol] 75.7 fL Low 80.0-99.0 [facility] ([place]) Comment on above: Performed By: #### C AION, MG, TROPI, PHOS, CMP, PBNP, GFR, TSH, CBC, DIFF, MORPH #### [place] [address] Platelet mean volume (Bld) [Entitic vol] 6.3 fL Low 6.6-10.5 [facility] ([place]) Comment on above: Performed By: #### C AION, MG, TROPI, PHOS, CMP, PBNP, GFR, TSH, CBC, DIFF, MORPH #### [facility] [address] [place], [place] [address] Platelets (Bld) [#/Vol] 438 10 3/mcL Normal 150-450 [facility] ([place]) Comment on above: Performed By: #### C AION, MG, TROPI, PHOS, CMP, PBNP, GFR, TSH, CBC, DIFF, MORPH #### [address] [address] RBC (Bld) [#/Vol] 3.83 10 6/mcL Low 4.10-5.30 [facility] ([place]) Comment on above: Performed By: #### C AION, MG, TROPI, PHOS, CMP, PBNP, GFR, TSH, CBC, DIFF, MORPH #### [place] [phone] CURon 02-23-2020 CUR . MICRO - Microbiology [...] Locations *1: This test was performed at: [address], [address] , [facility] ([place]) Comment on above: Performed By: #### C AION, MG, TROPI, PHOS, CMP, PBNP, GFR, TSH, CBC, DIFF, MORPH #### [address] [address] .Auto Diffon 02-22-2020 Ammonia (P) [Mass/Vol] 0.70 10 3/mcL Normal 0.09-1.40 [facility] ([place]) Comment on above: Performed By: #### C AION, MG, TROPI, PHOS, CMP, PBNP, GFR, TSH, CBC, DIFF, MORPH #### [address] [address] Basophils (Bld) [#/Vol] 0.00 10 3/mcL Normal 0.00-0.27 [facility] ([place]) Comment on above: Performed By: #### C AION, MG, TROPI, PHOS, CMP, PBNP, GFR, TSH, CBC, DIFF, MORPH #### [address] [address] Basophils/100 WBC (Bld) 0.7 % Normal 0.0-2.5 [facility] ([place]) Comment on above: Performed By: #### C AION, MG, TROPI, PHOS, CMP, PBNP, GFR, TSH, CBC, DIFF, MORPH #### [address] [address] Eosinophils (Bld) [#/Vol] 0.60 10 3/mcL Normal 0.00-0.65 [facility] ([place]) Comment on above: Performed By: #### C AION, MG, TROPI, PHOS, CMP, PBNP, GFR, TSH, CBC, DIFF, MORPH #### [address] [address] Eosinophils/100 WBC (Bld) 9.2 % High 0.0-6.0 [facility] ([place]) Comment on above: Performed By: #### C AION, MG, TROPI, PHOS, CMP, PBNP, GFR, TSH, CBC, DIFF, MORPH #### [address] [address] Lymphocytes (Bld) [#/Vol] 1.20 10 3/mcL Normal 0.90-4.32 [facility] ([place]) Comment on above: Performed By: #### C AION, MG, TROPI, PHOS, CMP, PBNP, GFR, TSH, CBC, DIFF, MORPH #### [address] [address] Lymphocytes/100 WBC (Bld) 16.8 % Low 20.0-40.0 [facility] ([place]) Comment on above: Performed By: #### C AION, MG, TROPI, PHOS, CMP, PBNP, GFR, TSH, CBC, DIFF, MORPH #### [address] [address] Monocytes/100 WBC (Bld) 10.2 % Normal 2.0-13.0 [facility] ([place]) Comment on above: Performed By: #### C AION, MG, TROPI, PHOS, CMP, PBNP, GFR, TSH, CBC, DIFF, MORPH #### [address] [address] Neutrophils/100 WBC (Bld) 63.1 % Normal 50.0-75.0 [facility] ([place]) Comment on above: Performed By: #### C AION, MG, TROPI, PHOS, CMP, PBNP, GFR, TSH, CBC, DIFF, MORPH #### [address] [address] .GFRon 02-22-2020 GFR Non- 50 ml/min/1.73sqm Normal [facility] ([place]) Comment on above: Result Comment: GFR Population [...] PBNP, GFR, TSH, CBC, DIFF, MORPH #### [address] [address] GFR >60 Normal [facility] ([place]) Comment on above: Result Comment: GFR Population [...] PBNP, GFR, TSH, CBC, DIFF, MORPH #### [address] [address] .NEUABSon 02-22-2020 Neutrophils (Bld) [#/Vol] 4.30 10 3/mcL Normal 2.25-8.10 [facility] ([place]) Comment on above: Performed By: #### C AION, MG, TROPI, PHOS, CMP, PBNP, GFR, TSH, CBC, DIFF, MORPH #### [address] [address] BMPon 02-22-2020 Creatinine [Mass/Vol] 1.10 mg/dL Normal 0.50-1.20 [facility] ([place]) Comment on above: Performed By: #### C AION, MG, TROPI, PHOS, CMP, PBNP, GFR, TSH, CBC, DIFF, MORPH #### [address] [address] Urea nitrogen/Creatinine [Mass ratio] 16.4 ratio Normal 10.0-22.0 [facility] ([place]) Comment on above: Performed By: #### C AION, MG, TROPI, PHOS, CMP, PBNP, GFR, TSH, CBC, DIFF, MORPH #### [address] [address] Calcium [Mass/Vol] 7.7 mg/dL Low 8.4-10.1 [facility] ([place]) Comment on above: Performed By: #### C AION, MG, TROPI, PHOS, CMP, PBNP, GFR, TSH, CBC, DIFF, MORPH #### [address] [address] Chloride [Moles/Vol] 105 mmol/L Normal 98-110 [facility] ([place]) Comment on above: Performed By: #### C AION, MG, TROPI, PHOS, CMP, PBNP, GFR, TSH, CBC, DIFF, MORPH #### [address] [address] CO2 [Moles/Vol] 29 mmol/L Normal 22-32 [facility] ([place]) Comment on above: Performed By: #### C AION, MG, TROPI, PHOS, CMP, PBNP, GFR, TSH, CBC, DIFF, MORPH #### [address] [address] Electrolyte Balance 5.0 mEq/L Normal 4.0-15.0 [facility] ([place]) Comment on above: Performed By: #### C AION, MG, TROPI, PHOS, CMP, PBNP, GFR, TSH, CBC, DIFF, MORPH #### [address] [address] Glucose [Mass/Vol] 135 mg/dL High 82-115 [facility] ([place]) Comment on above: Performed By: #### C AION, MG, TROPI, PHOS, CMP, PBNP, GFR, TSH, CBC, DIFF, MORPH #### [address] [address] Potassium [Moles/Vol] 4.0 mmol/L Normal 3.5-5.0 [facility] ([place]) Comment on above: Performed By: #### C AION, MG, TROPI, PHOS, CMP, PBNP, GFR, TSH, CBC, DIFF, MORPH #### [address] [address] Sodium [Moles/Vol] 139 mmol/L Normal 136-145 [facility] ([place]) Comment on above: Performed By: #### C AION, MG, TROPI, PHOS, CMP, PBNP, GFR, TSH, CBC, DIFF, MORPH #### [place] [phone] Urea nitrogen [Mass/Vol] 18.0 mg/dL Normal 8.0-22.0 [facility] ([place]) Comment on above: Performed By: #### C AION, MG, TROPI, PHOS, CMP, PBNP, GFR, TSH, CBC, DIFF, MORPH #### [place] [address] CBCon 02-22-2020 Erythrocyte distribution width (RBC) [Ratio] 19.4 % High 11.5-15.5 [facility] ([place]) Comment on above: Performed By: #### C AION, MG, TROPI, PHOS, CMP, PBNP, GFR, TSH, CBC, DIFF, MORPH #### [place] [address] Hematocrit (Bld) [Volume fraction] 25.7 % Low 34.0-46.0 [facility] ([place]) Comment on above: Performed By: #### C AION, MG, TROPI, PHOS, CMP, PBNP, GFR, TSH, CBC, DIFF, MORPH #### [place] [address] Hemoglobin (Bld) [Mass/Vol] 8.1 G/dL Low 12.0-16.0 [facility] ([place]) Comment on above: Performed By: #### C AION, MG, TROPI, PHOS, CMP, PBNP, GFR, TSH, CBC, DIFF, MORPH #### [place] [phone] MCH (RBC) [Entitic mass] 24.0 pg Low 27.0-33.0 [facility] ([place]) Comment on above: Performed By: #### C AION, MG, TROPI, PHOS, CMP, PBNP, GFR, TSH, CBC, DIFF, MORPH #### [address] [address] MCHC (RBC) [Mass/Vol] 31.5 G/dL Low 32.0-36.0 [facility] ([place]) Comment on above: Performed By: #### C AION, MG, TROPI, PHOS, CMP, PBNP, GFR, TSH, CBC, DIFF, MORPH #### [address] [address] MCV (RBC) [Entitic vol] 76.1 fL Low 80.0-99.0 [facility] ([place]) Comment on above: Performed By: #### C AION, MG, TROPI, PHOS, CMP, PBNP, GFR, TSH, CBC, DIFF, MORPH #### [address] [address] Platelet mean volume (Bld) [Entitic vol] 6.6 fL Normal 6.6-10.5 [facility] ([place]) Comment on above: Performed By: #### C AION, MG, TROPI, PHOS, CMP, PBNP, GFR, TSH, CBC, DIFF, MORPH #### [address] [address] Platelets (Bld) [#/Vol] 371 10 3/mcL Normal 150-450 [facility] ([place]) Comment on above: Performed By: #### C AION, MG, TROPI, PHOS, CMP, PBNP, GFR, TSH, CBC, DIFF, MORPH #### [address] [address] RBC (Bld) [#/Vol] 3.37 10 6/mcL Low 4.10-5.30 [facility] ([place]) Comment on above: Performed By: #### C AION, MG, TROPI, PHOS, CMP, PBNP, GFR, TSH, CBC, DIFF, MORPH #### [address] [address] WBC (Bld) [#/Vol] 6.90 10 3/mcL Normal 4.50-10.80 [facility] ([place]) Comment on above: Performed By: #### C AION, MG, TROPI, PHOS, CMP, PBNP, GFR, TSH, CBC, DIFF, MORPH #### [address] [address] .Auto Diffon 02-21-2020 Ammonia (P) [Mass/Vol] 0.60 10 3/mcL Normal 0.09-1.40 [facility] ([place]) Comment on above: Performed By: #### C AION, MG, TROPI, PHOS, CMP, PBNP, GFR, TSH, CBC, DIFF, MORPH #### [place] [address] Basophils (Bld) [#/Vol] 0.00 10 3/mcL Normal 0.00-0.27 [facility] ([place]) Comment on above: Performed By: #### C AION, MG, TROPI, PHOS, CMP, PBNP, GFR, TSH, CBC, DIFF, MORPH #### [address] [address] Basophils/100 WBC (Bld) 0.6 % Normal 0.0-2.5 [facility] ([place]) Comment on above: Performed By: #### C AION, MG, TROPI, PHOS, CMP, PBNP, GFR, TSH, CBC, DIFF, MORPH #### [address] [address] Eosinophils (Bld) [#/Vol] 0.40 10 3/mcL Normal 0.00-0.65 [facility] ([place]) Comment on above: Performed By: #### C AION, MG, TROPI, PHOS, CMP, PBNP, GFR, TSH, CBC, DIFF, MORPH #### [address] [address] Eosinophils/100 WBC (Bld) 6.0 % Normal 0.0-6.0 [facility] ([place]) Comment on above: Performed By: #### C AION, MG, TROPI, PHOS, CMP, PBNP, GFR, TSH, CBC, DIFF, MORPH #### [address] [address] Lymphocytes (Bld) [#/Vol] 0.90 10 3/mcL Normal 0.90-4.32 [facility] ([place]) Comment on above: Performed By: #### C AION, MG, TROPI, PHOS, CMP, PBNP, GFR, TSH, CBC, DIFF, MORPH #### [address] [address] Lymphocytes/100 WBC (Bld) 13.9 % Low 20.0-40.0 [facility] ([place]) Comment on above: Performed By: #### C AION, MG, TROPI, PHOS, CMP, PBNP, GFR, TSH, CBC, DIFF, MORPH #### [address] [address] Monocytes/100 WBC (Bld) 9.1 % Normal 2.0-13.0 [facility] ([place]) Comment on above: Performed By: #### C AION, MG, TROPI, PHOS, CMP, PBNP, GFR, TSH, CBC, DIFF, MORPH #### [address] [address] Neutrophils/100 WBC (Bld) 70.4 % Normal 50.0-75.0 [facility] ([place]) Comment on above: Performed By: #### C AION, MG, TROPI, PHOS, CMP, PBNP, GFR, TSH, CBC, DIFF, MORPH #### [address] [address] .GFRon 02-21-2020 GFR Non- 47 ml/min/1.73sqm Normal [facility] ([place]) Comment on above: Result Comment: GFR [...] PBNP, GFR, TSH, CBC, DIFF, MORPH #### [address] [address] GFR 57 ml/min/1.73sqm Normal [facility] ([place]) Comment on above: Result Comment: GFR Population [...] PBNP, GFR, TSH, CBC, DIFF, MORPH #### [place] [address] .Morphon 02-21-2020 Anisocytosis Ql (Bld) Slight Normal [facility] ([place]) Comment on above: Performed By: #### C AION, MG, TROPI, PHOS, CMP, PBNP, GFR, TSH, CBC, DIFF, MORPH #### [address] [address] Hypochrom Slight Normal [facility] ([place]) Comment on above: Performed By: #### C AION, MG, TROPI, PHOS, CMP, PBNP, GFR, TSH, CBC, DIFF, MORPH #### [address] [address] Microcytosis Slight Normal [facility] ([place]) Comment on above: Performed By: #### C AION, MG, TROPI, PHOS, CMP, PBNP, GFR, TSH, CBC, DIFF, MORPH #### [place] [phone] Ovalocytes Few Normal [facility] ([place]) Comment on above: Performed By: #### C AION, MG, TROPI, PHOS, CMP, PBNP, GFR, TSH, CBC, DIFF, MORPH #### [place] [address] Platelets (Bld) [#/Vol] Normal Normal [facility] ([place]) Comment on above: Performed By: #### C AION, MG, TROPI, PHOS, CMP, PBNP, GFR, TSH, CBC, DIFF, MORPH #### [place] [address] Poik Slight Normal [facility] ([place]) Comment on above: Performed By: #### C AION, MG, TROPI, PHOS, CMP, PBNP, GFR, TSH, CBC, DIFF, MORPH #### [place] [address] Polychrom Slight Normal [facility] ([place]) Comment on above: Performed By: #### C AION, MG, TROPI, PHOS, CMP, PBNP, GFR, TSH, CBC, DIFF, MORPH #### [place] [address] .NEUABSon 02-21-2020 Neutrophils (Bld) [#/Vol] 4.60 10 3/mcL Normal 2.25-8.10 [facility] ([place]) Comment on above: Performed By: #### C AION, MG, TROPI, PHOS, CMP, PBNP, GFR, TSH, CBC, DIFF, MORPH #### [place] [address] BMPon 02-21-2020 Creatinine [Mass/Vol] 1.16 mg/dL Normal 0.50-1.20 [facility] ([place]) Comment on above: Performed By: #### C AION, MG, TROPI, PHOS, CMP, PBNP, GFR, TSH, CBC, DIFF, MORPH #### [facility] [address] [place], [place] [address] Urea nitrogen/Creatinine [Mass ratio] 15.5 ratio Normal 10.0-22.0 [facility] ([place]) Comment on above: Performed By: #### C AION, MG, TROPI, PHOS, CMP, PBNP, GFR, TSH, CBC, DIFF, MORPH #### [address] [address] Calcium [Mass/Vol] 8.0 mg/dL Low 8.4-10.1 [facility] ([place]) Comment on above: Performed By: #### C AION, MG, TROPI, PHOS, CMP, PBNP, GFR, TSH, CBC, DIFF, MORPH #### [address] [address] Chloride [Moles/Vol] 106 mmol/L Normal 98-110 [facility] ([place]) Comment on above: Performed By: #### C AION, MG, TROPI, PHOS, CMP, PBNP, GFR, TSH, CBC, DIFF, MORPH #### [address] [address] CO2 [Moles/Vol] 29 mmol/L Normal 22-32 [facility] ([place]) Comment on above: Performed By: #### C AION, MG, TROPI, PHOS, CMP, PBNP, GFR, TSH, CBC, DIFF, MORPH #### [address] [address] Electrolyte Balance 5.0 mEq/L Normal 4.0-15.0 [facility] ([place]) Comment on above: Performed By: #### C AION, MG, TROPI, PHOS, CMP, PBNP, GFR, TSH, CBC, DIFF, MORPH #### [address] [address] Glucose [Mass/Vol] 219 mg/dL High 82-115 [facility] ([place]) Comment on above: Performed By: #### C AION, MG, TROPI, PHOS, CMP, PBNP, GFR, TSH, CBC, DIFF, MORPH #### [address] [address] Potassium [Moles/Vol] 4.1 mmol/L Normal 3.5-5.0 [facility] ([place]) Comment on above: Performed By: #### C AION, MG, TROPI, PHOS, CMP, PBNP, GFR, TSH, CBC, DIFF, MORPH #### [place] [address] Sodium [Moles/Vol] 140 mmol/L Normal 136-145 [facility] ([place]) Comment on above: Performed By: #### C AION, MG, TROPI, PHOS, CMP, PBNP, GFR, TSH, CBC, DIFF, MORPH #### [place] [address] Urea nitrogen [Mass/Vol] 18.0 mg/dL Normal 8.0-22.0 [facility] ([place]) Comment on above: Performed By: #### C AION, MG, TROPI, PHOS, CMP, PBNP, GFR, TSH, CBC, DIFF, MORPH #### [place] [address] CBCon 02-21-2020 Erythrocyte distribution width (RBC) [Ratio] 18.6 % High 11.5-15.5 [facility] ([place]) Comment on above: Performed By: #### C AION, MG, TROPI, PHOS, CMP, PBNP, GFR, TSH, CBC, DIFF, MORPH #### [place] [address] Hematocrit (Bld) [Volume fraction] 22.6 % Low 34.0-46.0 [facility] ([place]) Comment on above: Performed By: #### C AION, MG, TROPI, PHOS, CMP, PBNP, GFR, TSH, CBC, DIFF, MORPH #### [place] [address] Hemoglobin (Bld) [Mass/Vol] 6.9 G/dL Critically abnormal 12.0-16.0 [facility] ([place]) Comment on above: Performed By: #### C AION, MG, TROPI, PHOS, CMP, PBNP, GFR, TSH, CBC, DIFF, MORPH #### [facility] [address] [place], [place] [address] MCH (RBC) [Entitic mass] 22.7 pg Low 27.0-33.0 [facility] ([place]) Comment on above: Performed By: #### C AION, MG, TROPI, PHOS, CMP, PBNP, GFR, TSH, CBC, DIFF, MORPH #### [address] [address] MCHC (RBC) [Mass/Vol] 30.5 G/dL Low 32.0-36.0 [facility] ([place]) Comment on above: Performed By: #### C AION, MG, TROPI, PHOS, CMP, PBNP, GFR, TSH, CBC, DIFF, MORPH #### [place] [address] MCV (RBC) [Entitic vol] 74.5 fL Low 80.0-99.0 [facility] ([place]) Comment on above: Performed By: #### C AION, MG, TROPI, PHOS, CMP, PBNP, GFR, TSH, CBC, DIFF, MORPH #### [place] [id number] Platelet mean volume (Bld) [Entitic vol] 6.2 fL Low 6.6-10.5 [facility] ([place]) Comment on above: Performed By: #### C AION, MG, TROPI, PHOS, CMP, PBNP, GFR, TSH, CBC, DIFF, MORPH #### [place] [phone] Platelets (Bld) [#/Vol] 397 10 3/mcL Normal 150-450 [facility] ([place]) Comment on above: Performed By: #### C AION, MG, TROPI, PHOS, CMP, PBNP, GFR, TSH, CBC, DIFF, MORPH #### [place] [phone] RBC (Bld) [#/Vol] 3.04 10 6/mcL Low 4.10-5.30 [facility] ([place]) Comment on above: Performed By: #### C AION, MG, TROPI, PHOS, CMP, PBNP, GFR, TSH, CBC, DIFF, MORPH #### [address] [address] WBC (Bld) [#/Vol] 6.60 10 3/mcL Normal 4.50-10.80 [facility] ([place]) Comment on above: Performed By: #### C AION, MG, TROPI, PHOS, CMP, PBNP, GFR, TSH, CBC, DIFF, MORPH #### [address] [address] FESon 02-21-2020 Iron [Mass/Vol] 41 ug/dL Normal 37-170 [facility] ([place]) Comment on above: Performed By: #### C AION, MG, TROPI, PHOS, CMP, PBNP, GFR, TSH, CBC, DIFF, MORPH #### [place] [address] Iron Sat 11 % Normal [facility] ([place]) Comment on above: Performed By: #### C AION, MG, TROPI, PHOS, CMP, PBNP, GFR, TSH, CBC, DIFF, MORPH #### [place] [address] TIBC 388 mcg/dL Normal 250-500 [facility] ([place]) Comment on above: Performed By: #### C AION, MG, TROPI, PHOS, CMP, PBNP, GFR, TSH, CBC, DIFF, MORPH #### [address] [address] HGBon 02-21-2020 Hemoglobin (Bld) [Mass/Vol] 6.8 G/dL Critically abnormal 12.0-16.0 [facility] ([place]) Comment on above: Performed By: #### C AION, MG, TROPI, PHOS, CMP, PBNP, GFR, TSH, CBC, DIFF, MORPH #### [place] [address] Hemoglobin (Bld) [Mass/Vol] 5.1 G/dL Critically abnormal 12.0-16.0 [facility] ([place]) Comment on above: Result Comment: Spec imen drawn while blood was still running at floor's insistence. Results may not be accurate. Performed By: #### C AION, MG, TROPI, PHOS, CMP, PBNP, GFR, TSH, CBC, DIFF, MORPH #### [address] [address] HHon 02-21-2020 Hematocrit (Bld) [Volume fraction] 27.8 % Low 34.0-46.0 [facility] ([place]) Comment on above: Performed By: #### C AION, MG, TROPI, PHOS, CMP, PBNP, GFR, TSH, CBC, DIFF, MORPH #### [place] [address] Hemoglobin (Bld) [Mass/Vol] 8.6 G/dL Low 12.0-16.0 [facility] ([place]) Comment on above: Performed By: #### C AION, MG, TROPI, PHOS, CMP, PBNP, GFR, TSH, CBC, DIFF, MORPH #### [place] [address] LIPIDon 02-21-2020 Cholesterol [Mass/Vol] 93 mg/dL Normal 50-199 [facility] ([place]) Comment on above: Result Comment: Chol esterol Reference Interval: Less than 200 Desirable 200-239 Borderline high risk 240 and above High risk Performed By: #### C AION, MG, TROPI, PHOS, CMP, PBNP, GFR, TSH, CBC, DIFF, MORPH #### [place] [address] Cholesterol in HDL [Mass/Vol] 39 mg/dL Low 40-59 [facility] ([place]) Comment on above: Result Comment: HDL Reference Interval: Less than 40 Low - high risk 60 or above Optimal/lowers risk Performed By: #### C AION, MG, TROPI, PHOS, CMP, PBNP, GFR, TSH, CBC, DIFF, MORPH #### [place] [id number] Cholesterol in LDL [Mass/Vol] 27 mg/dL Normal 0-129 [facility] ([place]) Comment on above: Result Comment: LDL is a calculated result and requires a 12-hr fast. LDL Reference Interval: Less than 100 Optimal 100-129 Near or above optimal 130-159 Borderline high risk 160-189 High risk 190 and above Very high risk Performed By: #### C AION, MG, TROPI, PHOS, CMP, PBNP, GFR, TSH, CBC, DIFF, MORPH #### [address] [address] Triglyceride [Mass/Vol] 135 mg/dL Normal 3-149 [facility] ([place]) Comment on above: Result Comment: Trig lyceride Reference Interval: Less than 150 Normal 150-199 Borderline high risk 200-499 High risk 500 or higher Very high risk Performed By: #### C AION, MG, TROPI, PHOS, CMP, PBNP, GFR, TSH, CBC, DIFF, MORPH #### [address] [address] MGon 02-21-2020 Magnesium [Mass/Vol] 1.9 mg/dL Normal 1.6-2.4 [facility] ([place]) Comment on above: Performed By: #### C AION, MG, TROPI, PHOS, CMP, PBNP, GFR, TSH, CBC, DIFF, MORPH #### [address] [address] RBC (Product)on 02-21-2020 RBC (Bld) [#/Vol] RBC Ready for Pickup Normal [facility] ([place]) Comment on above: Performed By: #### C AION, MG, TROPI, PHOS, CMP, PBNP, GFR, TSH, CBC, DIFF, MORPH #### [address] [address] .GFRon 02-20-2020 GFR Non- 56 ml/min/1.73sqm Normal [facility] ([place]) Comment on above: Result Comment: GFR Population [...] PBNP, GFR, TSH, CBC, DIFF, MORPH #### [address] [address] GFR >60 Normal [facility] ([place]) Comment on above: Result Comment: GFR Population [...] PBNP, GFR, TSH, CBC, DIFF, MORPH #### [address] [address] .Manual Diffon 02-20-2020 Basophil %, Manual 0.0 % Normal 0.0-2.5 [facility] ([place]) Comment on above: Performed By: #### C AION, MG, TROPI, PHOS, CMP, PBNP, GFR, TSH, CBC, DIFF, MORPH #### [address] [address] Basophil, Abs Manual 0.00 10 3/mcL Normal 0.00-0.27 [facility] ([place]) Comment on above: Performed By: #### C AION, MG, TROPI, PHOS, CMP, PBNP, GFR, TSH, CBC, DIFF, MORPH #### [address] [address] Cells Counted 100 Normal [facility] ([place]) Comment on above: Performed By: #### C AION, MG, TROPI, PHOS, CMP, PBNP, GFR, TSH, CBC, DIFF, MORPH #### [address] [address] Eosinophil %, Manual 3.0 % Normal 0.0-6.0 [facility] ([place]) Comment on above: Performed By: #### C AION, MG, TROPI, PHOS, CMP, PBNP, GFR, TSH, CBC, DIFF, MORPH #### [address] [address] Eosinophil, Abs Manual 0.22 10 3/mcL Normal 0.00-0.65 [facility] ([place]) Comment on above: Performed By: #### C AION, MG, TROPI, PHOS, CMP, PBNP, GFR, TSH, CBC, DIFF, MORPH #### [address] [address] Lymphocyte %, Manual 14.0 % Low 20.0-40.0 [facility] ([place]) Comment on above: Performed By: #### C AION, MG, TROPI, PHOS, CMP, PBNP, GFR, TSH, CBC, DIFF, MORPH #### [address] [address] Lymphocyte, Abs Manual 1.02 10 3/mcL Normal 0.90-4.32 [facility] ([place]) Comment on above: Performed By: #### C AION, MG, TROPI, PHOS, CMP, PBNP, GFR, TSH, CBC, DIFF, MORPH #### [address] [address] Monocyte %, Manual 8.0 % Normal 2.0-13.0 [facility] ([place]) Comment on above: Performed By: #### C AION, MG, TROPI, PHOS, CMP, PBNP, GFR, TSH, CBC, DIFF, MORPH #### [address] [address] Monocyte, Abs Manual 0.58 10 3/mcL Normal 0.09-1.40 [facility] ([place]) Comment on above: Performed By: #### C AION, MG, TROPI, PHOS, CMP, PBNP, GFR, TSH, CBC, DIFF, MORPH #### [place] [address] Myelocyte 1.0 % Normal [facility] ([place]) Comment on above: Performed By: #### C AION, MG, TROPI, PHOS, CMP, PBNP, GFR, TSH, CBC, DIFF, MORPH #### [place] [address] Neutrophil %, Manual 74.0 % Normal 50.0-75.0 [facility] ([place]) Comment on above: Performed By: #### C AION, MG, TROPI, PHOS, CMP, PBNP, GFR, TSH, CBC, DIFF, MORPH #### [place] [address] Neutrophil, Abs Manual 5.62 10 3/mcL Normal 2.25-8.10 [facility] ([place]) Comment on above: Performed By: #### C AION, MG, TROPI, PHOS, CMP, PBNP, GFR, TSH, CBC, DIFF, MORPH #### [place] [address] Nucleated RBC (Bld) [#/Vol] 1.0 /100 WBC Normal [facility] ([place]) Comment on above: Performed By: #### C AION, MG, TROPI, PHOS, CMP, PBNP, GFR, TSH, CBC, DIFF, MORPH #### [place] [address] .Morphon 02-20-2020 Anisocytosis Ql (Bld) Slight Normal [facility] ([place]) Comment on above: Performed By: #### C AION, MG, TROPI, PHOS, CMP, PBNP, GFR, TSH, CBC, DIFF, MORPH #### [place] [address] Hypochrom Moderate Normal [facility] ([place]) Comment on above: Performed By: #### C AION, MG, TROPI, PHOS, CMP, PBNP, GFR, TSH, CBC, DIFF, MORPH #### [address] [address] Microcytosis Moderate Normal [facility] ([place]) Comment on above: Performed By: #### C AION, MG, TROPI, PHOS, CMP, PBNP, GFR, TSH, CBC, DIFF, MORPH #### [address] [address] Ovalocytes Few Normal [facility] [facility] ([place] Comment on above: Performed By: #### C AION, MG, TROPI, PHOS, CMP, PBNP, GFR, TSH, CBC, DIFF, MORPH #### [address] [address] Platelets (Bld) [#/Vol] Normal Normal A [facility] ([place]) Comment on above: Performed By: #### C AION, MG, TROPI, PHOS, CMP, PBNP, GFR, TSH, CBC, DIFF, MORPH #### [place] [phone] Polychrom Slight Normal [facility] ([place]) Comment on above: Performed By: #### C AION, MG, TROPI, PHOS, CMP, PBNP, GFR, TSH, CBC, DIFF, MORPH #### [place] [address] B12on 02-20-2020 Cobalamin (Vitamin B12) [Mass/Vol] 613 pg/mL Normal 211-911 [facility] ([place]) Comment on above: Performed By: #### C AION, MG, TROPI, PHOS, CMP, PBNP, GFR, TSH, CBC, DIFF, MORPH #### [place] [address] CAIONon 02-20-2020 Calcium Ionized 1.10 mmol/L Low 1.12-1.32 [facility] ([place]) Comment on above: Performed By: #### C AION, MG, TROPI, PHOS, CMP, PBNP, GFR, TSH, CBC, DIFF, MORPH #### [place] [address] CBCon 02-20-2020 Erythrocyte distribution width (RBC) [Ratio] 18.0 % High 11.5-15.5 [facility] ([place]) Comment on above: Performed By: #### C AION, MG, TROPI, PHOS, CMP, PBNP, GFR, TSH, CBC, DIFF, MORPH #### [place] [address] Hematocrit (Bld) [Volume fraction] 18.1 % Low 34.0-46.0 [facility] ([place]) Comment on above: Performed By: #### C AION, MG, TROPI, PHOS, CMP, PBNP, GFR, TSH, CBC, DIFF, MORPH #### [place] [address] Hemoglobin (Bld) [Mass/Vol] 5.3 G/dL Critically abnormal 12.0-16.0 [facility] ([place]) Comment on above: Performed By: #### C AION, MG, TROPI, PHOS, CMP, PBNP, GFR, TSH, CBC, DIFF, MORPH #### [place] [address] MCH (RBC) [Entitic mass] 21.2 pg Low 27.0-33.0 [facility] ([place]) Comment on above: Performed By: #### C AION, MG, TROPI, PHOS, CMP, PBNP, GFR, TSH, CBC, DIFF, MORPH #### [place] [address] MCHC (RBC) [Mass/Vol] 29.2 G/dL Low 32.0-36.0 [facility] ([place]) Comment on above: Performed By: #### C AION, MG, TROPI, PHOS, CMP, PBNP, GFR, TSH, CBC, DIFF, MORPH #### [place] [address] MCV (RBC) [Entitic vol] 72.6 fL Low 80.0-99.0 A [facility] ([place]) Comment on above: Performed By: #### C AION, MG, TROPI, PHOS, CMP, PBNP, GFR, TSH, CBC, DIFF, MORPH #### [facility] [address] [place], [place] [address] Platelet mean volume (Bld) [Entitic vol] 6.5 fL Low 6.6-10.5 [facility] ([place]) Comment on above: Performed By: #### C AION, MG, TROPI, PHOS, CMP, PBNP, GFR, TSH, CBC, DIFF, MORPH #### [address] [address] Platelets (Bld) [#/Vol] 432 10 3/mcL Normal 150-450 [facility] ([place]) Comment on above: Performed By: #### C AION, MG, TROPI, PHOS, CMP, PBNP, GFR, TSH, CBC, DIFF, MORPH #### [place] [address] RBC (Bld) [#/Vol] 2.49 10 6/mcL Low 4.10-5.30 [facility] ([place]) Comment on above: Performed By: #### C AION, MG, TROPI, PHOS, CMP, PBNP, GFR, TSH, CBC, DIFF, MORPH #### [place] [phone] WBC (Bld) [#/Vol] 7.30 10 3/mcL Normal 4.50-10.80 [facility] ([place]) Comment on above: Performed By: #### C AION, MG, TROPI, PHOS, CMP, PBNP, GFR, TSH, CBC, DIFF, MORPH #### [place] [address] CMPon 02-20-2020 Albumin/Globulin [Mass ratio] 0.8 {ratio} Low 0.9-1.6 [facility] ([place]) Comment on above: Performed By: #### C AION, MG, TROPI, PHOS, CMP, PBNP, GFR, TSH, CBC, DIFF, MORPH #### [place] [address] ALP [Catalytic activity/Vol] 69 U/L Normal 38-126 [facility] ([place]) Comment on above: Performed By: #### C AION, MG, TROPI, PHOS, CMP, PBNP, GFR, TSH, CBC, DIFF, MORPH #### [address] [address] ALT [Catalytic activity/Vol] 18 U/L Normal 10-49 [facility] ([place]) Comment on above: Performed By: #### C AION, MG, TROPI, PHOS, CMP, PBNP, GFR, TSH, CBC, DIFF, MORPH #### [address] [address] AST [Catalytic activity/Vol] 17 U/L Normal 8-34 [facility] ([place]) Comment on above: Performed By: #### C AION, MG, TROPI, PHOS, CMP, PBNP, GFR, TSH, CBC, DIFF, MORPH #### [address] [address] Bili Total 0.5 mg/dL Normal 0.2-1.2 [facility] ([place]) Comment on above: Result Comment: Use of this assay is not recommended for patients undergoing treatment with eltrombopag due to the potential for falsely elevated results. Performed By: #### C AION, MG, TROPI, PHOS, CMP, PBNP, GFR, TSH, CBC, DIFF, MORPH #### [address] [address] Creatinine [Mass/Vol] 1.00 mg/dL Normal 0.50-1.20 [facility] ([place]) Comment on above: Performed By: #### C AION, MG, TROPI, PHOS, CMP, PBNP, GFR, TSH, CBC, DIFF, MORPH #### [address] [address] Globulin (S) [Mass/Vol] 3.8 G/dL Normal 1.5-3.8 [facility] ([place]) Comment on above: Performed By: #### C AION, MG, TROPI, PHOS, CMP, PBNP, GFR, TSH, CBC, DIFF, MORPH #### [address] [address] Protein [Mass/Vol] 6.7 G/dL Normal 6.0-8.5 [facility] ([place]) Comment on above: Performed By: #### C AION, MG, TROPI, PHOS, CMP, PBNP, GFR, TSH, CBC, DIFF, MORPH #### [address] [address] Urea nitrogen/Creatinine [Mass ratio] 15.0 ratio Normal 10.0-22.0 [facility] ([place]) Comment on above: Performed By: #### C AION, MG, TROPI, PHOS, CMP, PBNP, GFR, TSH, CBC, DIFF, MORPH #### [address] [address] Albumin [Mass/Vol] 2.9 G/dL Low 3.2-4.8 [facility] ([place]) Comment on above: Performed By: #### C AION, MG, TROPI, PHOS, CMP, PBNP, GFR, TSH, CBC, DIFF, MORPH #### [address] [address] Calcium [Mass/Vol] 8.4 mg/dL Normal 8.4-10.1 [facility] ([place]) Comment on above: Performed By: #### C AION, MG, TROPI, PHOS, CMP, PBNP, GFR, TSH, CBC, DIFF, MORPH #### [address] [address] Chloride [Moles/Vol] 108 mmol/L Normal 98-110 [facility] ([place]) Comment on above: Performed By: #### C AION, MG, TROPI, PHOS, CMP, PBNP, GFR, TSH, CBC, DIFF, MORPH #### [address] [address] CO2 [Moles/Vol] 26 mmol/L Normal 22-32 [facility] ([place]) Comment on above: Performed By: #### C AION, MG, TROPI, PHOS, CMP, PBNP, GFR, TSH, CBC, DIFF, MORPH #### [address] [address] Electrolyte Balance 7.0 mEq/L Normal 4.0-15.0 [facility] ([place]) Comment on above: Performed By: #### C AION, MG, TROPI, PHOS, CMP, PBNP, GFR, TSH, CBC, DIFF, MORPH #### [address] [address] Glucose [Mass/Vol] 110 mg/dL Normal 82-115 [facility] ([place]) Comment on above: Performed By: #### C AION, MG, TROPI, PHOS, CMP, PBNP, GFR, TSH, CBC, DIFF, MORPH #### [address] [address] Potassium [Moles/Vol] 4.2 mmol/L Normal 3.5-5.0 [facility] ([place]) Comment on above: Performed By: #### C AION, MG, TROPI, PHOS, CMP, PBNP, GFR, TSH, CBC, DIFF, MORPH #### [address] [address] Sodium [Moles/Vol] 141 mmol/L Normal 136-145 [facility] ([place]) Comment on above: Performed By: #### C AION, MG, TROPI, PHOS, CMP, PBNP, GFR, TSH, CBC, DIFF, MORPH #### [address] [address] Urea nitrogen [Mass/Vol] 15.0 mg/dL Normal 8.0-22.0 [facility] ([place]) Comment on above: Performed By: #### C AION, MG, TROPI, PHOS, CMP, PBNP, GFR, TSH, CBC, DIFF, MORPH #### [address] [address] Cristhian 02-20-2020 Ferritin [Mass/Vol] 6 ng/mL Low 8-252 [facility] ([place]) Comment on above: Performed By: #### C AION, MG, TROPI, PHOS, CMP, PBNP, GFR, TSH, CBC, DIFF, MORPH #### [address] [address] FESon 02-20-2020 Iron Sat 2 % Normal [facility] ([place]) Comment on above: Performed By: #### C AION, MG, TROPI, PHOS, CMP, PBNP, GFR, TSH, CBC, DIFF, MORPH #### [place] [phone] TIBC 430 mcg/dL Normal 250-500 [facility] ([place]) Comment on above: Performed By: #### C AION, MG, TROPI, PHOS, CMP, PBNP, GFR, TSH, CBC, DIFF, MORPH #### [place] [address] Iron [Mass/Vol] 10 ug/dL Low 37-170 [facility] ([place]) Comment on above: Performed By: #### C AION, MG, TROPI, PHOS, CMP, PBNP, GFR, TSH, CBC, DIFF, MORPH #### [place] [address] FOLon 02-20-2020 Folate 12.4 ng/mL Normal 1.1-20.0 [facility] ([place]) Comment on above: Performed By: #### C AION, MG, TROPI, PHOS, CMP, PBNP, GFR, TSH, CBC, DIFF, MORPH #### [place] [address] HHon 02-20-2020 Hematocrit (Bld) [Volume fraction] 19.0 % Low 34.0-46.0 [facility] ([place]) Comment on above: Performed By: #### C AION, MG, TROPI, PHOS, CMP, PBNP, GFR, TSH, CBC, DIFF, MORPH #### [place] [address] Hemoglobin (Bld) [Mass/Vol] 5.6 G/dL Critically abnormal 12.0-16.0 [facility] ([place]) Comment on above: Performed By: #### C AION, MG, TROPI, PHOS, CMP, PBNP, GFR, TSH, CBC, DIFF, MORPH #### [place] [address] MGon 02-20-2020 Magnesium [Mass/Vol] 2.0 mg/dL Normal 1.6-2.4 [facility] ([place]) Comment on above: Performed By: #### C AION, MG, TROPI, PHOS, CMP, PBNP, GFR, TSH, CBC, DIFF, MORPH #### [address] [address] PBNPon 02-20-2020 Natriuretic peptide B (Bld) [Mass/Vol] 1799 pg/mL High 0-900 [facility] ([place]) Comment on above: Result Comment: NT-p roBNP results of less than 300 pg/mL effectively rules out acute congestive heart failure with 99% negative predictive value. Performed By: #### C AION, MG, TROPI, PHOS, CMP, PBNP, GFR, TSH, CBC, DIFF, MORPH #### [place] [address] PHOSon 02-20-2020 Phosphate [Mass/Vol] 2.8 mg/dL Normal 2.5-4.5 [facility] ([place]) Comment on above: Performed By: #### C AION, MG, TROPI, PHOS, CMP, PBNP, GFR, TSH, CBC, DIFF, MORPH #### [address] [address] RBC (Product)on 02-20-2020 RBC (Bld) [#/Vol] RBC Ready for Pickup Normal [facility] ([place]) Comment on above: Performed By: #### C AION, MG, TROPI, PHOS, CMP, PBNP, GFR, TSH, CBC, DIFF, MORPH #### [place] [address] TABOon 02-20-2020 ABO/Rh Interp Positive [facility] ([place]) Comment on above: Performed By: #### C AION, MG, TROPI, PHOS, CMP, PBNP, GFR, TSH, CBC, DIFF, MORPH #### [place] [address] TABSon 02-20-2020 Antibody Screen Tango Negative Normal [facility] ([place]) Comment on above: Performed By: #### C AION, MG, TROPI, PHOS, CMP, PBNP, GFR, TSH, CBC, DIFF, MORPH #### [place] [phone] TROPIon 02-20-2020 Troponin I.cardiac [Mass/Vol] ng/mL Normal 0.000-0.040 [facility] ([place]) Comment on above: Result Comment: Trop onin I reference ranges (07/06/14): 0.00-0.040 ng/mL Negative and non-diagnostic. >0.040 ng/mL Consistent with cardiac damage, increased clinical risk and possibility of myocardial infarction. Serial measurements, a rise & fall in test results, clinical history, appropriate symptoms and/or ECG changes may help assess possibility of IL. *Other non-acute coronary syndrome conditions such as CHF, myocarditis, pulmonary emboli, sepsis and cardiac surgery could result in myocardial damage and increased troponin levels. Performed By: #### C AION, MG, TROPI, PHOS, CMP, PBNP, GFR, TSH, CBC, DIFF, MORPH #### [place] [address] TSHon 02-20-2020 TSH Qn 1.870 mcIU/mL Normal 0.360-3.740 [facility] ([place]) Comment on above: Performed By: #### C AION, MG, TROPI, PHOS, CMP, PBNP, GFR, TSH, CBC, DIFF, MORPH #### [place] [address] UAon 02-20-2020 Color (U) Dark Yellow Normal [facility] ([place]) Comment on above: Performed By: #### C AION, MG, TROPI, PHOS, CMP, PBNP, GFR, TSH, CBC, DIFF, MORPH #### [place] [address] Glucose (U) [Mass/Vol] Negative Normal Negative [facility] ([place]) Comment on above: Performed By: #### C AION, MG, TROPI, PHOS, CMP, PBNP, GFR, TSH, CBC, DIFF, MORPH #### [place] [phone] Ketones Ql (U) Trace Normal Neg-Trace [facility] ([place]) Comment on above: Performed By: #### C AION, MG, TROPI, PHOS, CMP, PBNP, GFR, TSH, CBC, DIFF, MORPH #### [address] [address] UA Appear Clear Normal Clear [facility] ([place]) Comment on above: Performed By: #### C AION, MG, TROPI, PHOS, CMP, PBNP, GFR, TSH, CBC, DIFF, MORPH #### [address] [address] UA Blood Negative Normal Neg-Trace [facility] ([place]) Comment on above: Performed By: #### C AION, MG, TROPI, PHOS, CMP, PBNP, GFR, TSH, CBC, DIFF, MORPH #### [place] [phone] UA Leuk Est Small Abnormal Negative [facility] ([place]) Comment on above: Performed By: #### C AION, MG, TROPI, PHOS, CMP, PBNP, GFR, TSH, CBC, DIFF, MORPH #### [place] [address] UA Nitrite Positive Abnormal Negative [facility] ([place]) Comment on above: Performed By: #### C AION, MG, TROPI, PHOS, CMP, PBNP, GFR, TSH, CBC, DIFF, MORPH #### [place] [address] UA pH 5.0 Normal 5.0 - 8.0 [facility] ([place]) Comment on above: Performed By: #### C AION, MG, TROPI, PHOS, CMP, PBNP, GFR, TSH, CBC, DIFF, MORPH #### [place] [address] UA Protein Trace Normal Negative [facility] ([place]) Comment on above: Performed By: #### C AION, MG, TROPI, PHOS, CMP, PBNP, GFR, TSH, CBC, DIFF, MORPH #### [place] [address] UA Spec Grav 1.025 Normal 1.006-1.029 [facility] ([place]) Comment on above: Performed By: #### C AION, MG, TROPI, PHOS, CMP, PBNP, GFR, TSH, CBC, DIFF, MORPH #### [address] [address] UA Specimen Type Clean Catch Normal [facility] ([place]) Comment on above: Performed By: #### C AION, MG, TROPI, PHOS, CMP, PBNP, GFR, TSH, CBC, DIFF, MORPH #### [place] [address] UA Urobilinogen 1.0 E.U./dL Normal 0.2-1.0 [facility] ([place]) Comment on above: Performed By: #### C AION, MG, TROPI, PHOS, CMP, PBNP, GFR, TSH, CBC, DIFF, MORPH #### [place] [address] Urobilinogen Qn (U) Negative Normal Neg-Trace [facility] ([place]) Comment on above: Performed By: #### C AION, MG, TROPI, PHOS, CMP, PBNP, GFR, TSH, CBC, DIFF, MORPH #### [place] [address] UAMICon 02-20-2020 RBC (U) [#/Vol] Negative Normal 0-2 [facility] ([place]) Comment on above: Performed By: #### C AION, MG, TROPI, PHOS, CMP, PBNP, GFR, TSH, CBC, DIFF, MORPH #### [place] [address] UA Bacteria 3+ /hpf Abnormal Negative [facility] ([place]) Comment on above: Performed By: #### C AION, MG, TROPI, PHOS, CMP, PBNP, GFR, TSH, CBC, DIFF, MORPH #### [place] [address] UA Squam Epithelial 3-5 Normal 0-20 [facility] ([place]) Comment on above: Performed By: #### C AION, MG, TROPI, PHOS, CMP, PBNP, GFR, TSH, CBC, DIFF, MORPH #### [place] [address] UA WBC 10-20 Abnormal 0-5 [facility] ([place]) Comment on above: Performed By: #### C AION, MG, TROPI, PHOS, CMP, PBNP, GFR, TSH, CBC, DIFF, MORPH #### [facility] [address] [place] [address] XR CHEST 1 VIEWon 02-20-2020 XR CHEST [...] Date: 02/20/2020 1:37:01 PM Ordering Provider:Oscar Bee [facility] ([place]) CBC W/DIFFon 12-30-2019 BASO ABS 0.00 K/CU MM Normal 0-0.2 [facility] Comment on above: Performed By: #### L 550.92982, L200.87971 #### [facility] [address] [place], [place] [id number] Basophils/100 WBC (Bld) 0.5 % Normal 0-2 M [facility] Comment on above: Performed By: #### L 550.95697, L200.10267 #### [facility] [address] [place] [address] EOS ABS 0.30 K/CU MM Normal 0-0.5 [facility] Comment on above: Performed By: #### L 550.29436, L200.54734 #### [facility] [address] [place] [address] Eosinophils/100 WBC (Bld) 3.5 % Normal 0-5 [facility] Comment on above: Performed By: #### L 550.73806, L200.49574 #### [facility] [address] [place] [address] Erythrocyte distribution width (RBC) [Ratio] 15.1 % High 11-14.5 [facility] Comment on above: Performed By: #### L 550.14695, L200.47858 #### [facility] [address] [place] [address] Hematocrit (Bld) [Volume fraction] 33.0 % Low 35.0-47.0 [facility] Comment on above: Performed By: #### L 550.33007, L200.73368 #### [facility] [address] [place] [address] Hemoglobin (Bld) [Mass/Vol] 9.6 g/dL Low 11.5-15.5 [facility] Comment on above: Performed By: #### L 550.07506, L200.55204 #### [facility] [address] [place] [address] IMMATR GRAN ABS 0.10 K/CU MM Normal Less than 2 [facility] Comment on above: Performed By: #### L 550.78229, L200.07517 #### [facility] [address] [place] [address] IMMATURE GRAN % 0.8 % Normal Less than 2 [facility] Comment on above: Performed By: #### L 550.14582, L200.68330 #### [facility] [address] [place] [address] Lymphocytes (Bld) [#/Vol] 1.60 K/CU MM Normal 0.9-4.4 [facility] Comment on above: Performed By: #### L 550.00333, L200.06843 #### [facility] [address] [place] [address] Lymphocytes/100 WBC (Bld) 21.2 % Normal 20-40 [facility] Comment on above: Performed By: #### L 550.66026, L200.65871 #### [facility] [address] [place] [address] MCHC (RBC) [Mass/Vol] 29.1 g/dL Low 32.0-36.0 [facility] Comment on above: Performed By: #### L 550.99716, L200.72491 #### [facility] [address] [place] [address] MCV (RBC) [Entitic vol] 87.3 fL Normal 80.0-99.0 [facility] Comment on above: Performed By: #### L 550.25237, L200.46004 #### [facility] [address] [place] [address] MONO ABS 0.60 K/CU MM Normal 0.1-1.1 [facility] Comment on above: Performed By: #### L 550.44807, L200.08773 #### [facility] [address] [place] [address] Monocytes/100 WBC (Bld) 8.3 % Normal 2-10 M [facility] Comment on above: Performed By: #### L 550.54434, L200.80229 #### [facility] [address] [place] [address] NEUTROPHIL ABS 4.90 K/CU MM Normal 2.0-8.3 [facility] Comment on above: Performed By: #### L 550.83945, L200.74173 #### [facility] [address] [place] [address] Neutrophils/100 WBC (Bld) 65.7 % Normal 45-75 [facility] Comment on above: Performed By: #### L 550.04421, L200.50345 #### [facility] [address] [place], [place] [id number] Nucleated RBC/100 WBC (Bld) [Ratio] 0.0 % Normal Less than 1 [facility] Comment on above: Performed By: #### L 550.41236, L200.67556 #### [facility] [address] [place] [address] Platelet mean volume (Bld) [Entitic vol] 8.9 fL Low 9.4-12.4 [facility] Comment on above: Performed By: #### L 550.47643, L200.46575 #### [facility] [address] [place] [address] Platelets (Bld) [#/Vol] 343 K/CU MM Normal 150-450 [facility] Comment on above: Performed By: #### L 550.85913, L200.48311 #### [facility] [address] [place] [address] RBC (Bld) [#/Vol] 3.78 M/CU MM Low 3.90-5.30 [facility] Comment on above: Performed By: #### L 550.06642, L200.37163 #### [facility] [address] [place], [place] [id number] WBC (Bld) [#/Vol] 7.5 K/CUMM Normal 4.5-11.0 [facility] Comment on above: Performed By: #### L 550.02076, L200.12295 #### [facility] [address] [place] [address] CMPon 12-30-2019 Albumin [Mass/Vol] 3.3 g/dL Normal 3.2-5.0 [facility] Comment on above: Performed By: #### L 550.22432, L500.50837, L500.24485, L500.30441 #### [facility] [place] [id number] Albumin/Globulin [Mass ratio] 0.9 {ratio} Normal 0.8-2.0 [facility] Comment on above: Performed By: #### L 550.16009, L500.33789, L500.87140, L500.01150 #### [facility] [address] [place] [address] ALK PHOS 84 U/L Normal 45-117 [facility] Comment on above: Performed By: #### L 550.43234, L500.69270, L500.04043, L500.23851 #### [facility] [address] [place] [address] ALT [Catalytic activity/Vol] 20 U/L Normal 13-61 [facility] Comment on above: Result Comment: RESU LTS MAY BE FALSELY DEPRESSED AFTER THE ADMINISTRATION OF SULFASALAZINE AND/OR SULFAPYRIDINE. Performed By: #### L 550.93454, L500.16244, L500.52495, L500.11466 #### [facility] [address] [place] [address] Anion gap [Moles/Vol] 9 mmol/L Normal 5-16 [facility] Comment on above: Performed By: #### L 550.22482, L500.49893, L500.92313, L500.79312 #### [facility] [address] [place], [place] [id number] BILI TOTAL 0.4 MG/DL Normal 0.2-1.0 [facility] Comment on above: Performed By: #### L 550.61112, L500.48184, L500.45794, L500.35223 #### [facility] [address] [place], [place] [id number] Calcium [Mass/Vol] 8.9 mg/dL Normal 8.5-10.1 [facility] Comment on above: Performed By: #### L 550.54561, L500.70566, L500.31159, L500.53531 #### [facility] [place] [address] Chloride [Moles/Vol] 104 mmol/L Normal 98-107 [facility] Comment on above: Performed By: #### L 550.42780, L500.80261, L500.25246, L500.10130 #### [facility] [address] [place] [address] CO2 [Moles/Vol] 24 mmol/L Normal 21-32 [facility] Comment on above: Performed By: #### L 550.63982, L500.56745, L500.46227, L500.92977 #### [facility] [address] [place] [address] Creatinine [Mass/Vol] 0.961 mg/dL High 0.510-0.950 M [facility] Comment on above: Result Comment: Brendon ents receiving either N-Acetylcysteine (NAC) or Metamizole prior to venipuncture, may have falsely depressed results. Performed By: #### L 550.07834, L500.21406, L500.00379, L500.46513 #### [facility] [address] [place] [address] Globulin (S) [Mass/Vol] 3.7 g/dL Normal 2.2-4.2 M [facility] Comment on above: Performed By: #### L 550.22308, L500.57374, L500.76785, L500.30934 #### [facility] [address] [place] [id number] Glucose [Mass/Vol] 305 mg/dL High 70-100 [facility] Comment on above: Result Comment: 70-1 00- Normal Fasting; 100-125 Impaired Fasting; greater than 126 on more than one result- Diabetes. ADA guidelines. Results may be falsely elevated after the administration of Sulfapyridine. Results may be falsely depressed after the administration of Sulfasalazine. Performed By: #### L 550.54948, L500.56719, L500.64487, L500.90867 #### [facility] [address] [place] [id number] Potassium [Moles/Vol] 4.8 mmol/L Normal 3.5-5.1 [facility] Comment on above: Performed By: #### L 550.68717, L500.52405, L500.98884, L500.12776 #### [facility] [address] [place] [address] Protein [Mass/Vol] 7.0 g/dL Normal 6.0-8.5 [facility] Comment on above: Performed By: #### L 550.87227, L500.08942, L500.87315, L500.22473 #### [facility] [address] [place] [id number] SGOT (AST) 12 U/L Normal 8-34 [facility] Comment on above: Result Comment: RESU LTS MAY BE FALSELY DEPRESSED AFTER THE ADMINISTRATION OF SULFASALAZINE AND/OR SULFAPYRIDINE. Performed By: #### L 550.48320, L500.95731, L500.68593, L500.69947 #### [facility] [address] [place] [address] Sodium [Moles/Vol] 137 mmol/L Normal 136-145 [facility] Comment on above: Performed By: #### L 550.65311, L500.88914, L500.26622, L500.74998 #### [facility] [address] [place] [address] 59771 Urea nitrogen [Mass/Vol] 20 mg/dL Normal 7-26 [facility] Comment on above: Performed By: #### L 550.63463, L500.33504, L500.25761, L500.79561 #### [facility] [address] [place], [place] [id number] Urea nitrogen/Creatinine [Mass ratio] 21 mg/mg Normal 15-24 [facility] Comment on above: Performed By: #### L 550.42963, L500.00009, L500.57853, L500.14885 #### [facility] [address] [place] [address] GFR ESTon 12-30-2019 IF AMER Greater than [address] [facility] Comment on above: Performed By: #### L 550.21688, L500.53791, L500.53089, L500.86528 #### [facility] [address] [place] [address] IF non-AFR AMER 59 ML/MIN Normal [facility] Comment on above: Performed By: #### L 550.19219, L500.54498, L500.50004, L500.25391 #### [facility] [address] [place], [place] [id number] HGB A1C GLYCOHBon 12-30-2019 HbA1c (Bld) [Mass fraction] 7.6 % High 4.3-6.0 [facility] Comment on above: Performed By: #### L 550.79766, L200.00162 #### [facility] [address] [place], [place] [id number] LIPIDon 12-30-2019 Cholesterol [Mass/Vol] 190 mg/dL Normal 0-199 [facility] Comment on above: Performed By: #### L 500.21353, L500.46559, L500.95291, L500.37580, L500.12505 #### [facility] [address] [place], [place] [id number] Cholesterol in HDL [Mass/Vol] 42 mg/dL Normal [place] 40 [facility] Comment on above: Result Comment: Brendon ents receiving Metamizole prior to venipuncture, may have falsely depressed results. Performed By: #### L 500.17824, L500.55881, L500.83455, L500.49153, L500.57834 #### [facility] [address] [place] [address] Cholesterol in LDL [Mass/Vol] 100 mg/dL Normal 0-129 [facility] Comment on above: Result Comment: ___C HOLESTEROL/HDL RATIO RISK___ CHD RISK = Total CHOL LDL HDL (CHOL/HDL) Recommended <200 <130 >40 <3.4 Borderline 200-239 130-159 3.4-4.99 High >240 >160 >5.0 Performed By: #### L 500.55893, L500.99105, L500.28412, L500.03048, L500.66786 #### [facility] [place] [address] Triglyceride [Mass/Vol] 243 mg/dL High 30-149 M [facility] Comment on above: Result Comment: Brendon ents receiving either N-Acetylcysteine (NAC) or Metamizole prior to venipuncture, may have falsely depressed results. Performed By: #### L 500.79242, L500.78431, L500.30701, L500.51420, L500.42362 #### [facility] [address] [place] [address] [id number] 12-30-2019 [id number] 16.2 NG/ML Low 30.0-100.0 [facility] Comment on above: Result Comment: Defi ciency Less than 20 ng/mL Insufficiency 20 - Less than 30 ng/mL Sufficiency 30 - 100 ng/mL Performed By: #### L 500.63770, L500.45275, L500.49839, L500.46644, L500.27462 #### [facility] [address] [place] [address] CBC W/DIFFon 07-24-2019 BASO ABS 0.10 K/CU MM Normal 0-0.2 [facility] Comment on above: Performed By: #### L 200.50121 #### [facility] [address] [place] [address] Basophils/100 WBC (Bld) 0.7 % Normal 0-2 M [facility] Comment on above: Performed By: #### L 200.63462 #### [facility] [address] [place] [address] EOS ABS 0.20 K/CU MM Normal 0-0.5 [facility] Comment on above: Performed By: #### L 200.32913 #### [facility] [address] [place] [address] Eosinophils/100 WBC (Bld) 2.2 % Normal 0-5 [facility] Comment on above: Performed By: #### L 200.13713 #### [facility] [address] [place] [address] Erythrocyte distribution width (RBC) [Ratio] 14.6 % High 11-14.5 [facility] Comment on above: Performed By: #### L 200.94603 #### [facility] [address] [place] [address] Hematocrit (Bld) [Volume fraction] 38.4 % Normal 35.0-47.0 [facility] Comment on above: Performed By: #### L 200.03359 #### [facility] [address] [place] [address] Hemoglobin (Bld) [Mass/Vol] 11.5 g/dL Normal 11.5-15.5 [facility] Comment on above: Performed By: #### L 200.53268 #### [facility] [address] [place] [address] IMMATR GRAN ABS 0.30 K/CU MM Normal Less than 2 [facility] Comment on above: Performed By: #### L 200.98094 #### [facility] [address] [place] [address] IMMATURE GRAN % 3.3 % Normal Less than 2 [facility] Comment on above: Performed By: #### L 200.12610 #### [facility] [address] [place] [address] Lymphocytes (Bld) [#/Vol] 2.10 K/CU MM Normal 0.9-4.4 [facility] Comment on above: Performed By: #### L 200.02823 #### [facility] [address] [place] [address] Lymphocytes/100 WBC (Bld) 28.0 % Normal 20-40 [facility] Comment on above: Performed By: #### L 200.65236 #### [facility] [address] [place] [address] MCHC (RBC) [Mass/Vol] 29.9 g/dL Low 32.0-36.0 [facility] Comment on above: Performed By: #### L 200.07896 #### [facility] [address] [place] [address] MCV (RBC) [Entitic vol] 88.3 fL Normal 80.0-99.0 [facility] Comment on above: Performed By: #### L 200.96598 #### [facility] [address] [place] [address] MONO ABS 0.50 K/CU MM Normal 0.1-1.1 [facility] Comment on above: Performed By: #### L 200.18584 #### [facility] [address] [place] [address] Monocytes/100 WBC (Bld) 7.1 % Normal 2-10 M [facility] Comment on above: Performed By: #### L 200.50016 #### [facility] [address] [place] [address] NEUTROPHIL ABS 4.40 K/CU MM Normal 2.0-8.3 [facility] Comment on above: Performed By: #### L 200.38595 #### [facility] [address] [place] [address] Neutrophils/100 WBC (Bld) 58.7 % Normal 45-75 [facility] Comment on above: Performed By: #### L 200.46585 #### [facility] [address] [place] [address] Nucleated RBC/100 WBC (Bld) [Ratio] 0.4 % Normal Less than 1 [facility] Comment on above: Performed By: #### L 200.16861 #### [facility] [address] [place] [address] Platelet mean volume (Bld) [Entitic vol] 8.8 fL Low 9.4-12.4 [facility] Comment on above: Performed By: #### L 200.62550 #### [facility] [address] [place], [place] [id number] Platelets (Bld) [#/Vol] 285 K/CU MM Normal 150-450 [facility] Comment on above: Performed By: #### L 200.97102 #### [facility] [address] [place] [address] RBC (Bld) [#/Vol] 4.35 M/CU MM Normal 3.90-5.30 [facility] Comment on above: Performed By: #### L 200.68239 #### [facility] [address] [place] [address] WBC (Bld) [#/Vol] 7.6 K/CUMM Normal 4.5-11.0 [facility] Comment on above: Performed By: #### L 200.29375 #### [facility] [address] [place] [address] CMPon 07-24-2019 Albumin [Mass/Vol] 3.4 g/dL Normal 3.2-5.0 [facility] Comment on above: Performed By: #### L 500.12125, L500.16098, L500.66887, L500.20695, L500.29781 #### [facility] [address] [place] [address]26 Albumin/Globulin [Mass ratio] 1.1 {ratio} Normal 0.8-2.0 [facility] Comment on above: Performed By: #### L 500.35732, L500.35352, L500.06057, L500.17712, L500.47797 #### [facility] [place] [address] ALK PHOS 90 U/L Normal 45-117 [facility] Comment on above: Performed By: #### L 500.31408, L500.52310, L500.82587, L500.34213, L500.57712 #### [facility] [address] [place] [address] ALT [Catalytic activity/Vol] 21 U/L Normal 13-61 [facility] Comment on above: Result Comment: RESU LTS MAY BE FALSELY DEPRESSED AFTER THE ADMINISTRATION OF SULFASALAZINE AND/OR SULFAPYRIDINE. Performed By: #### L 500.76216, L500.07640, L500.48628, L500.49070, L500.17588 #### [facility] [address] [place] [address] Anion gap [Moles/Vol] 16 mmol/L Normal 5-16 [facility] Comment on above: Performed By: #### L 500.49109, L500.49355, L500.93097, L500.24241, L500.82486 #### [facility] [address] [place] [address] BILI TOTAL 0.4 MG/DL Normal 0.2-1.0 [facility] Comment on above: Performed By: #### L 500.78274, L500.30107, L500.70804, L500.81831, L500.61158 #### [facility] [address] [place] [address]99 Calcium [Mass/Vol] 8.9 mg/dL Normal 8.5-10.1 [facility] Comment on above: Performed By: #### L 500.53311, L500.17165, L500.53159, L500.09047, L500.76367 #### [facility] [place] [address] Chloride [Moles/Vol] 104 mmol/L Normal 98-107 [facility] Comment on above: Performed By: #### L 500.88587, L500.09528, L500.19230, L500.90811, L500.44099 #### [facility] [address] [place], [place] [id number] CO2 [Moles/Vol] 21 mmol/L Normal 21-32 [facility] Comment on above: Performed By: #### L 500.56399, L500.38726, L500.27151, L500.85255, L500.57837 #### [facility] [address] [place] [address] Creatinine [Mass/Vol] 0.802 mg/dL Normal 0.510-0.950 [facility] Comment on above: Result Comment: Brendon ents receiving either N-Acetylcysteine (NAC) or Metamizole prior to venipuncture, may have falsely depressed results. Performed By: #### L 500.78448, L500.23285, L500.54754, L500.98529, L500.19001 #### [facility] [address] [place] [address] 39[address] Globulin (S) [Mass/Vol] 3.2 g/dL Normal 2.2-4.2 [facility] Comment on above: Performed By: #### L 500.58432, L500.50602, L500.86751, L500.20295, L500.85181 #### [facility] [address] [place] [address] Glucose [Mass/Vol] 231 mg/dL High 70-100 [facility] Comment on above: Result Comment: 70-1 00- Normal Fasting; 100-125 Impaired Fasting; greater than 126 on more than one result- Diabetes. ADA guidelines. Results may be falsely elevated after the administration of Sulfapyridine. Results may be falsely depressed after the administration of Sulfasalazine. Performed By: #### L 500.57212, L500.30352, L500.62118, L500.51411, L500.36744 #### [facility] [place] [address] Potassium [Moles/Vol] 4.5 mmol/L Normal 3.5-5.1 [facility] Comment on above: Performed By: #### L 500.35813, L500.72418, L500.87270, L500.55307, L500.04573 #### [facility] [address] [place] [address] Protein [Mass/Vol] 6.6 g/dL Normal 6.0-8.5 [facility] Comment on above: Performed By: #### L 500.65854, L500.96649, L500.23566, L500.92451, L500.72910 #### [facility] [address] [place] [address] SGOT (AST) 14 U/L Normal 8-34 [facility] Comment on above: Result Comment: RESU LTS MAY BE FALSELY DEPRESSED AFTER THE ADMINISTRATION OF SULFASALAZINE AND/OR SULFAPYRIDINE. Performed By: #### L 500.41759, L500.12927, L500.16681, L500.45863, L500.44185 #### [facility] [address] [place] [address] Sodium [Moles/Vol] 141 mmol/L Normal 136-145 [facility] Comment on above: Performed By: #### L 500.23457, L500.45160, L500.77885, L500.18938, L500.02049 #### [facility] [address] [place] [address] Urea nitrogen [Mass/Vol] 15 mg/dL Normal 7-26 [facility] Comment on above: Performed By: #### L 500.88139, L500.49251, L500.71127, L500.04103, L500.62496 #### [facility] [place] [address] Urea nitrogen/Creatinine [Mass ratio] 19 mg/mg Normal 15-24 [facility] Comment on above: Performed By: #### L 500.21440, L500.01918, L500.65973, L500.98905, L500.01429 #### [facility] [address] [place] [address] GFR ESTon 07-24-2019 IF AMER Greater than [address] [facility] Comment on above: Performed By: #### L 500.86405, L500.90170, L500.57332, L500.59941, L500.43198 #### [facility] [address] [place] [address] IF non-AFR AMER Greater than [address] [facility] Comment on above: Performed By: #### L 500.64347, L500.25948, L500.13815, L500.82298, L500.81383 #### [facility] [address] [place], [place] [id number] LIPIDon 07-24-2019 Cholesterol [Mass/Vol] 158 mg/dL Normal 0-199 [facility] Comment on above: Performed By: #### L 500.61926, L500.45165, L500.33083, L500.92086, L500.38370 #### [facility] [address] [place] [address] Cholesterol in HDL [Mass/Vol] 42 mg/dL Normal [place] 40 [facility] Comment on above: Result Comment: Brendon ents receiving Metamizole prior to venipuncture, may have falsely depressed results. Performed By: #### L 500.27361, L500.41032, L500.80048, L500.94176, L500.61259 #### [facility] [address] [place] [address] Cholesterol in LDL [Mass/Vol] 70 mg/dL Normal 0-129 [facility] Comment on above: Result Comment: ___C HOLESTEROL/HDL RATIO RISK___ CHD RISK = Total CHOL LDL HDL (CHOL/HDL) Recommended <200 <130 >40 <3.4 Borderline 200-239 130-159 3.4-4.99 High >240 >160 >5.0 Performed By: #### L 500.60712, L500.75777, L500.72554, L500.92129, L500.92881 #### [facility] [address] [place] [address] Triglyceride [Mass/Vol] 231 mg/dL High 30-149 M [facility] Comment on above: Result Comment: Brendon ents receiving either N-Acetylcysteine (NAC) or Metamizole prior to venipuncture, may have falsely depressed results. Performed By: #### L 500.03742, L500.62079, L500.68656, L500.23529, L500.55628 #### [facility] [address] [place] [address] T4on 07-24-2019 T4 [Mass/Vol] 9.5 ug/dL Normal 4.8-13.9 [facility] Comment on above: Result Comment: RESU LTS MAY BE FALSELY ELEVATED AFTER THE ADMINISTRATION OF SULFASALAZINE. Performed By: #### L 500.54125, L500.36810, L500.56030, L500.82527, L500.99041 #### [facility] [place] [address] TSHon 07-24-2019 TSH Qn 4.990 UIU/ML High 0.358-3.740 [facility] Comment on above: Result Comment: 3rd generation ultra sensitive TSH Performed By: #### L 500.02869, L500.91683, L500.39877, L500.79606, L500.22144 #### [facility] [address] [place] [address] Vital Signs Date Time Vital Sign Value Performing Clinician Faci lity 03-09-2024 08:58-0400 Body temperature 96.6 [degF] Janie Cortez MD Work Phone: [facility] 03-09-2024 08:58-0400 Diastolic blood pressure 59 mm[Hg] Janie Cortez MD Work Phone: [facility] 03-09-2024 08:58-0400 Heart rate 79 /min Janie Cortez MD Work Phone: [facility] 03-09-2024 08:58-0400 Respiratory rate 16 /min Janie Cortez MD Work Phone: [facility] 03-09-2024 08:58-0400 SaO2% (BldA) [Mass fraction] 100 % Janie Cortez MD Work Phone: [facility] 03-09-2024 08:58-0400 Systolic blood pressure 130 mm[Hg] Janie Cortez MD Work Phone: [facility] 02-28-2024 08:26-0400 Body temperature 99.1 [degF] Serge Stewart MD Work Phone: [facility] 02-28-2024 08:26-0400 Diastolic blood pressure 69 mm[Hg] Serge Stewart MD Work Phone: [facility] 02-28-2024 08:26-0400 Heart rate 80 /min Serge Stewart MD Work Phone: [facility] 02-28-2024 08:26-0400 Respiratory rate 18 /min Serge Stewart MD Work Phone: [facility] 02-28-2024 08:26-0400 SaO2% (BldA) [Mass fraction] 100 % Serge Stewart MD Work Phone: [facility] 02-28-2024 08:26-0400 Systolic blood pressure 142 mm[Hg] Serge Stewart MD Work Phone: [facility] 02-25-2024 04:56-0400 Body mass index (BMI) [Ratio] 41.5 kg/m2 Serge Stewart MD Work Phone: [facility] 02-25-2024 04:56-0400 Body weight 113.13 kg Serge Stewart MD Work Phone: [facility] 02-22-2024 11:00-0400 Body height 165.1 cm Serge Stewart MD Work Phone: [facility] 2022 11:43-0400 Body height 165.1 cm Agustin Barahona APRN.CNP Work Phone: [facility] 2022 11:43-0400 Body temperature 98.49 [degF] Agustin Rawleigh BUILDING INSPECTION ENGINEER.MANAGER PHARMACY Work Phone: [facility] 2022 11:43-0400 Diastolic blood pressure 60 mm[Hg] Agustin Rawleigh BUILDING INSPECTION ENGINEER.MANAGER PHARMACY Work Phone: [facility] 2022 11:43-0400 Heart rate 77 /min Agustin Rawleigh BUILDING INSPECTION ENGINEER.MANAGER PHARMACY Work Phone: [facility] 2022 11:43-0400 SaO2% (BldA) [Mass fraction] 99 % Agustin Rawleigh BUILDING INSPECTION ENGINEER.MANAGER PHARMACY Work Phone: [facility] 2022 11:43-0400 Systolic blood pressure 110 mm[Hg] Agustin Rawleigh BUILDING INSPECTION ENGINEER.MANAGER PHARMACY Work Phone: [facility] 06-23-2022 13:05-0400 Body height 165.1 cm Agustin Rawleigh BUILDING INSPECTION ENGINEER.MANAGER PHARMACY Work Phone: [facility] 06-23-2022 13:05-0400 Body temperature 97.9 [degF] Agustin Rawleigh BUILDING INSPECTION ENGINEER.MANAGER PHARMACY Work Phone: [facility] 06-23-2022 13:05-0400 Diastolic blood pressure 60 mm[Hg] Agustin Rawleigh BUILDING INSPECTION ENGINEER.MANAGER PHARMACY Work Phone: [facility] 06-23-2022 13:05-0400 Heart rate 77 /min Agustin Rawleigh BUILDING INSPECTION ENGINEER.MANAGER PHARMACY Work Phone: [facility] 06-23-2022 13:05-0400 SaO2% (BldA) [Mass fraction] 98 % Agustin Rawleigh BUILDING INSPECTION ENGINEER.MANAGER PHARMACY Work Phone: [facility] 06-23-2022 13:05-0400 Systolic blood pressure 122 mm[Hg] Agustin Rawleigh BUILDING INSPECTION ENGINEER.MANAGER PHARMACY Work Phone: [facility] 05-07-2022 07:15-0400 Body temperature 96.21 [degF] Gigi Diehl MD Work Phone: [facility] 05-07-2022 07:15-0400 Diastolic blood pressure 74 mm[Hg] Gigi Diehl MD Work Phone: [facility] 05-07-2022 07:15-0400 Heart rate 73 /min Gigi Diehl MD Work Phone: [facility] 05-07-2022 07:15-0400 Respiratory rate 16 /min Gigi Diehl MD Work Phone: [facility] 05-07-2022 07:15-0400 SaO2% (BldA) [Mass fraction] 99 % Gigi Diehl MD Work Phone: [facility] 05-07-2022 07:15-0400 Systolic blood pressure 138 mm[Hg] Gigi Diehl MD Work Phone: [facility] 05-03-2022 04:25-0400 Body mass index (BMI) [Ratio] 48.79 kg/m2 Gigi Diehl MD Work Phone: [facility] 05-03-2022 04:25-0400 Body weight 133 kg Gigi Diehl MD Work Phone: [facility] 04-30-2022 16:32-0400 Body height 165.1 cm Gigi Diehl MD Work Phone: [facility] 03-22-2022 13:53-0400 Body temperature 99.39 [degF] Frankie Deng MD Work Phone: [facility] 03-22-2022 13:53-0400 Diastolic blood pressure 62 mm[Hg] Frankie Deng MD Work Phone: [facility] 03-22-2022 13:53-0400 Heart rate 85 /min Frankie Deng MD Work Phone: [facility] 03-22-2022 13:53-0400 Respiratory rate 18 /min Frankie Deng MD Work Phone: [facility] 03-22-2022 13:53-0400 SaO2% (BldA) [Mass fraction] 98 % Frankie Deng MD Work Phone: [facility] 03-22-2022 13:53-0400 Systolic blood pressure 122 mm[Hg] Frankie Deng MD Work Phone: [facility] 10-11-2021 11:27-0500 Body temperature 96.91 [degF] Quique Aranda MD Work Phone: [facility] 10-11-2021 11:27-0500 Diastolic blood pressure 78 mm[Hg] Quique Aranda MD Work Phone: [facility] 10-11-2021 11:27-0500 Heart rate 79 /min Quique Aranda MD Work Phone: [facility] 10-11-2021 11:27-0500 Respiratory rate 17 /min Quique Aranda MD Work Phone: [facility] 10-11-2021 11:27-0500 SaO2% (BldA) [Mass fraction] 100 % Quique Aranda MD Work Phone: [facility] 10-11-2021 11:27-0500 Systolic blood pressure 151 mm[Hg] Quique Aranda MD Work Phone: [facility] 10-11-2021 04:16-0500 Body mass index (BMI) [Ratio] 49.02 kg/m2 Quique Aranda MD Work Phone: [facility] 10-11-2021 04:16-0500 Body weight 129.55 kg Quique Aranda MD Work Phone: [facility] 10-10-2021 09:27-0500 Body height 162.6 cm Quique Aranda MD Work Phone: [facility] Encounters Encounter Date Encounter Type Care Provider Facility Start: 07-22-2025 ambulatory Lucy Quick OLS Faci lity:[facility] Start: 07-06-2025 ambulatory Lucy Quick OLS Faci lity:[facility] Start: 05-05-2025 ambulatory Lucy Quick OLS Faci lity:[facility] Start: 04-21-2025 ambulatory Lucy SALGADO Faci lity:[facility] Start: 04-02-2025 ambulatory Lucy SALGADO Faci lity:[facility] Start: 02-12-2025 End: 02-12-[address] [facility] Work Phone: Start: 02-12-2025 End: 02-12-2025 Departed Referred Lucy MEHTA Start: 02-12-2025 End: 02-12-2025 ambulatory Lucy SALGADO Facility:[facility] Start: 01-19-2025 End: 01-19-[address] [facility] Work Phone: Start: 01-19-2025 End: 01-19-2025 Departed Referred Lucy Araujouary [employer] Start: 01-19-2025 End: 01-19-2025 ambulatory Lucy SALGADO Facility:[facility] Start: 12-19-2024 End: 12-19-[address] [facility] Work Phone: Start: 12-19-2024 End: 12-19-2024 Departed Referred Lucy Araujouary [employer] Start: 12-19-2024 End: 12-19-2024 ambulatory Lucy SALGADO Facility:[facility] Start: 11-04-2024 End: 11-04-2024 Departed Referred Lucy Quick -[employer] Start: 11-04-2024 End: 11-04-2024 ambulatory Lucy SALGADO Facility:[facility] Start: 10-09-2024 ambulatory Lucy SALGADO Faci lity:[facility] Start: 10-09-2024 Registered Referred Lucy Quick - [employer] Start: 10-02-2024 End: 10-02-2024 Departed Referred Lucy Quick -[employer] Start: 10-02-2024 End: 10-02-2024 ambulatory Lucy SALGADO Facility:[facility] Start: 09-17-2024 End: 09-17-2024 [facility] Start: 09-17-2024 End: 09-17-2024 ambulatory Lucy SALGADO Facility:[facility] Start: 08-19-2024 End: 08-19-2024 ambulatory Lucy SALGADO Facility:[facility] Start: 08-14-2024 End: 08-14-2024 ambulatory Lucy SALGADO Facility:[facility] Start: 08-07-2024 End: 08-07-2024 ambulatory Lucy SALGADO Facility:[facility] Start: 03-05-2024 End: 03-09-2024 Evaluation and management of inpatient Janie Cortez MD Work Phone: [facility] Medical Surgical Unit MSU 4S Comment on above: UTI (urinary tract i nfection) (Primary Dx); Transient alteration of awareness; Lower urinary tract infectious disease; Edema, unspecified type; Edema of right upper arm Start: 02-21-2024 End: 02-28-2024 Evaluation and management of inpatient Serge Stewart MD Work Phone: [facility] Cardiac Progressive Care Unit PCU 2E Start: 12-31-2023 End: 12-31-[address] [facility] Work Phone: Start: 12-31-2023 End: 12-31-2023 Departed Referred [facility] [employer] Start: 12-10-2023 End: 12-10-[address] [facility] Work Phone: Start: 12-10-2023 End: 12-10-2023 Departed Referred [facility] [employer] Start: 10-04-2023 End: 10-04-2023 Departed Referred [facility] [employer] Start: 08-02-2023 End: 08-02-[address] [facility] Work Phone: Start: 08-02-2023 End: 08-02-2023 Departed Referred [facility] [employer] Start: 07-16-2023 End: 07-16-2023 Departed Referred [facility] Start: 07-16-2023 Registered Referred [facility] Start: 07-03-2023 End: 07-03-[address] [facility] Work Phone: Start: 07-03-2023 End: 07-03-2023 Departed Referred [facility] Start: 06-29-2023 Emergency department patient visit LUCY QUICK Facility:[facility] Start: 06-29-2023 End: 06-29-[address] [facility] Work Phone: Start: 06-29-2023 End: 06-29-2023 Departed Referred [facility] Start: 05-25-2023 Telephone encounter Lucy Quick MD Work Phone: Geriatrics Comment on above: Consult Start: 05-21-2023 End: 05-21-[address] [facility] Work Phone: Start: 05-21-2023 End: 05-21-2023 Departed Referred [facility] Start: 05-10-2023 Refill Agustin silverman APRN.CNP Work Phone: [facility] Comment on above: Refill Request Start: 04-26-2023 Refill Agustin silverman APRN.MANAGER PHARMACY Work Phone: [facility] Comment on above: Refill Request Start: 04-04-2023 End: 04-04-[address] [facility] Work Phone: Start: 04-04-2023 End: 04-04-2023 Departed Referred [facility] Start: 03-30-2023 End: 03-30-[address] [facility] Work Phone: Start: 03-30-2023 End: 03-30-2023 Departed Referred [facility] Start: 03-30-2023 Registered Referred [facility] Start: 03-20-2023 End: 03-20-[address] [facility] Work Phone: Start: 03-20-2023 End: 03-20-2023 Departed Referred [facility] Start: 03-13-2023 End: 03-13-[address] [facility] Work Phone: Start: 03-13-2023 End: 03-13-2023 Departed Referred [facility] Start: 03-13-2023 Registered Referred [facility] Start: 03-09-2023 Telephone encounter Travis House RN [facility] Comment on above: Orders ([place] HFC - ord er contact/deferral) Start: 03-02-2023 E-mail encounter fro m caregiver [facility] Provider [facility] Start: 03-02-2023 Patient encounter procedure Ccf Provider [facility] Comment on above: Appointment Change Start: 02-27-2023 End: 02-27-[address] [facility] Work Phone: Start: 02-27-2023 End: 02-27-2023 Departed Referred [facility] Start: 02-27-2023 Registered Referred [facility] Start: 02-26-2023 End: 02-26-[address] [facility] Work Phone: Start: 02-26-2023 End: 02-26-2023 Departed Referred [facility] Start: 02-26-2023 Registered Referred [facility] Start: 02-22-2023 [address]phone [address] Kerry HAGER [facility] Comment on above: Orders (HFC order co ntact/2nd letter) Start: 02-20-2023 Registered Referred [facility] Start: 02-19-2023 End: 02-19-[address] [facility] Work Phone: Start: 02-19-2023 End: 02-20-2023 Departed Referred [facility] Start: 02-11-2023 End: 02-15-2023 ambulatory MORGAN DOMINGO BERNARD Facility:[facility] Start: 02-06-2023 Patient Outreach Saniya Coleman RN [facility] Comment on above: Transition Of Care ( SNF Update) Start: 02-02-2023 End: 02-02-[address] [facility] Work Phone: Start: 02-02-2023 End: 02-02-2023 Departed Referred [facility] Start: 02-02-2023 Registered Referred [facility] Start: 01-29-2023 Patient Outreach Vy Almaguer [facility] Comment on above: Transition Of Care ( [facility] 01/28/23) Start: 01-28-2023 End: 01-28-2023 Emergency department patient visit AGUSTIN Giancarlo BARAHONA Facility:[facility] Start: 01-26-2023 Refill Deniz Wagoner Work Phone: [facility] Cardiology [place] Comment on above: Refill Request Start: 01-26-2023 End: 01-26-[address] [facility] Work Phone: Start: 01-26-2023 End: 01-26-2023 Departed Referred [facility] Start: 01-26-2023 Registered Referred [facility] Start: 01-17-2023 Telephone encounter Solange Arenas RN [facility] Comment on above: Orders; id HFC appt contact Start: 01-17-2023 End: 01-17-[address] [facility] Work Phone: Start: 01-17-2023 End: 01-17-2023 Departed Referred [facility] Start: 01-17-2023 Registered Referred [facility] Start: 01-15-2023 ambulatory Saniya Coleman RN [facility] Start: 01-15-2023 Evaluation and manag ement of inpatient Saniya Coleman RN [facility] Comment on above: Transition Of Care ( Inpatient TCM visit) Start: 01-15-2023 Telephone encounter Kerry Parr [facility] Comment on above: Orders (HFC deferral ) Start: 01-12-2023 End: 01-16-2023 Evaluation and management of inpatient JULISSA ARMSTRONG Facility:[facility] Start: 01-10-2023 End: 01-10-[address] [facility] Work Phone: Start: 01-10-2023 End: 01-10-2023 Departed Referred [facility] Start: 01-10-2023 Registered Referred [facility] Start: 01-06-2023 Refill Agustin silverman APRN.CNP Work Phone: [facility] Comment on above: Refill Request Start: 01-05-2023 End: 01-05-2023 Refill Deniz Silva MD Work Phone: [facility] Cardiology [place] Comment on above: Refill Request Start: 01-05-2023 End: 01-05-2023 Departed Referred [facility] Start: 01-05-2023 Registered Referred [facility] Start: 01-04-2023 Registered [facility] Start: 01-04-2023 Registered Referred [facility] Start: 01-02-2023 End: 01-02-2023 Emergency department patient visit SANDY BONNER Facility:[facility] Start: 01-02-2023 End: 01-02-[address] [facility] Work Phone: Start: 01-02-2023 End: 01-02-2023 Departed Referred [facility] Start: 01-02-2023 Registered Referred [facility] Start: 12-25-2022 End: 12-25-[address] [facility] Work Phone: Start: 12-25-2022 End: 12-25-2022 Departed Referred [facility] Start: 12-25-2022 Registered Referred [facility] Start: 12-22-2022 Refill Manisha Johnson PA-C Work Phone: Family Medicine Comment on above: Refill Request Start: 12-19-2022 Telephone encounter Kerry Parr [facility] Comment on above: Orders (HFC order co ntact/2nd letter) Start: 12-07-2022 Coordination of care plan Zelda Tong over [employer] Primary Care Social Work Comment on above: Encounter for suppor t and coordination of transition of care (Primary Dx) Start: 12-05-2022 End: 12-05-[address] [facility] Work Phone: Start: 12-05-2022 End: 12-05-2022 Departed Referred [facility] Start: 12-05-2022 Registered Referred [facility] Start: 11-29-2022 Refill Agustin silverman APRN.CNP Work Phone: [facility] Comment on above: Refill Request Start: 11-28-2022 End: 11-28-[address] [facility] Work Phone: Start: 11-28-2022 End: 11-28-2022 Departed Referred [facility] Start: 11-28-2022 Registered Referred [facility] Start: 11-27-2022 End: 11-27-[address] [facility] Work Phone: Start: 11-27-2022 End: 11-27-2022 Departed Referred [facility] Start: 11-24-2022 End: 11-24-[address] [facility] Work Phone: Start: 11-24-2022 End: 11-24-2022 Departed Referred [facility] Start: 11-24-2022 Registered Referred [facility] Start: 11-20-2022 Patient Outreach Saniya Coleman RN [facility] Comment on above: Transition Of Care ( Discharge to SNF) Orders (HFC order co ntact/SNF letter) Start: 11-10-2022 End: 11-17-2022 ambulatory Krupa Aparicio RN Work Phone: [facility] Start: 11-09-2022 Telephone encounter Agustin lawson BUILDING INSPECTION ENGINEER.MANAGER PHARMACY Work Phone: [facility] Comment on above: Home Care Arrangemen ts Transition Of Care ( [place] 10/28-11/08/22 [facility]) Start: 11-02-2022 Refill Agustin silverman BUILDING INSPECTION ENGINEER.MANAGER PHARMACY Work Phone: [facility] Comment on above: Refill Request Start: 10-31-2022 Telephone encounter Essie Sarkar BUILDING INSPECTION ENGINEER.MANAGER PHARMACY Work Phone: [facility] Comment on above: Orders (HFC order co ntact/SNF letter) Start: 10-29-2022 Telephone encounter Odilia mercedes DO Work Phone: [facility] Comment on above: Medication Problem ( Called by SNF. Lyrica printed script was not sent) Start: 10-15-2022 End: 10-28-2022 Evaluation and management of inpatient AGUSTIN BARAHONA Facility:[facility] Start: 10-06-2022 Refill Agustin silverman BUILDING INSPECTION ENGINEER.MANAGER PHARMACY Work Phone: [facility] Comment on above: Refill Request Start: 10-05-2022 Refill Agustin silverman APRN.MANAGER PHARMACY Work Phone: [facility] Comment on above: Refill Request Start: 10-03-2022 Telephone encounter Agustin lawson APRN.MANAGER PHARMACY Work Phone: [facility] Comment on above: Patient Update Start: 09-29-2022 End: 09-29-2022 ambulatory Agustin Barahona APRN.MANAGER PHARMACY Work Phone: [facility] Comment on above: Recurrent UTI (urina ry tract infection) (Primary Dx); Bullous rash; Stage 3b chronic kidney disease (HCC); Type 2 diabetes mellitus with diabetic polyneuropathy, with long-term current use of insulin (HCC); Acute on chronic diastolic CHF (congestive heart failure) (HCC); Chronic respiratory failure with hypoxia (HCC) Start: 09-29-2022 End: 09-29-2022 Telemedicine consultation with patient Agustin Giancarlo Barahona APRN.MANAGER PHARMACY Work Phone: [facility] Start: 09-28-2022 Refill Adele betancourt APRN.MANAGER PHARMACY Work Phone: [facility] Comment on above: Refill Request Start: 09-25-2022 Refill Agustin silverman APRN.MANAGER PHARMACY Work Phone: [facility] Comment on above: Refill Request Transition Of Care ( Patient call, TCM follow up ) Start: 09-11-2022 Telephone encounter Agustin lawson APRN.MANAGER PHARMACY Work Phone: [facility] Comment on above: Results Start: 09-08-2022 Patient Outreach Krupa ponce RN Work Phone: [facility] Comment on above: Transition Of Care ( Return Patient call) Start: 09-08-2022 Refill Agustin silverman APRN.MANAGER PHARMACY Work Phone: [facility] Comment on above: Refill Request Start: 08-31-2022 Refill Agustin silverman BUILDING INSPECTION ENGINEER.MANAGER PHARMACY Work Phone: [facility] Comment on above: Med Change Request Start: 08-30-2022 End: 08-31-2022 ambulatory AGUSTIN BARAHONA Facility:[facility] Start: 08-30-2022 End: 08-30-2022 Nursing evaluation of patient and report Nurse Card Chf [address] [facility] Comment on above: Congestive heart juan lure, unspecified HF chronicity, unspecified heart failure type (HCC) [I50.9 (ICD-10-CM)] (Primary Dx) Start: 08-30-2022 Telephone encounter Tea koroma APRN.MANAGER PHARMACY Work Phone: [facility] Cardiology [place] Comment on above: Appointment Start: 08-29-2022 Refill Agustin silverman BUILDING INSPECTION ENGINEER.MANAGER PHARMACY Work Phone: [facility] Comment on above: Refill Request Start: 08-29-2022 Telephone encounter Agustin lawson BUILDING INSPECTION ENGINEER.MANAGER PHARMACY Work Phone: [facility] Comment on above: Consult (PAIN MANAGE MENT) Start: 08-28-2022 Patient Outreach Krupa ponce RN Work Phone: [facility] Comment on above: Transition Of Care ( [facility] 08/22-08/27/22 TCM) Medication Problem ( Recent hospital discharge) Start: 08-26-2022 Telephone encounter aMrtín Carbajal MD Work Phone: [place] [facility] Comment on above: Patient Update Start: 08-24-2022 Refill Agustin silverman BUILDING INSPECTION ENGINEER.MANAGER PHARMACY Work Phone: [facility] Comment on above: Refill Request; Refi ll Request Start: 08-23-2022 Telephone encounter Estela Hassanron [facility] Comment on above: Patient Update Start: 08-22-2022 End: 08-27-2022 Evaluation and management of inpatient ZULLY DAMIAN Facility:[facility] Start: 08-22-2022 End: 08-22-2022 Emergency department patient visit AGUSTIN BARAHONA Facility:[facility] Start: 08-21-2022 Telephone encounter Deniz polo MD Work Phone: [facility] Cardiology [place] Comment on above: Patient Update Patient Update (Leg swelling) Start: 08-17-2022 ambulatory Disha Camejo RN [facility] Comment on above: Primary Care Coordin ator- Other (PCC Chart review) Start: 08-17-2022 Coordination of care plan Disha rodrigues RN [facility] Comment on above: Primary Care Coordin ator- Other (Primary Care Coordination Intake Attempt) Start: 2022 End: 2022 ambulatory AGUSTIN BARAHONA Facility:[facility] Start: 2022 End: 2022 Patient encounter procedure Agustin Barahona BUILDING INSPECTION ENGINEER.MANAGER PHARMACY Work Phone: [facility] Comment on above: Ecthyma (Primary Dx) ; Leg swelling; Stage 3b chronic kidney disease (HCC); Primary hypertension; Type 2 diabetes mellitus with diabetic polyneuropathy, with long-term current use of insulin (HCC); Chronic heart failure with preserved ejection fraction (HFpEF) (HCC); Recurrent UTI (urinary tract infection); Physical debility Start: 08-11-2022 Refill Agustin silverman BUILDING INSPECTION ENGINEER.MANAGER PHARMACY Work Phone: [facility] Comment on above: Refill Request Start: 08-08-2022 Telephone encounter Agustin lawson BUILDING INSPECTION ENGINEER.MANAGER PHARMACY Work Phone: [facility] Comment on above: Refill Request Start: 08-04-2022 Refill Agustin silverman BUILDING INSPECTION ENGINEER.MANAGER PHARMACY Work Phone: [facility] Comment on above: Refill Request Start: 08-02-2022 Telephone encounter Val andino MD Work Phone: [facility] Comment on above: Appointment Results (Labs done a t ED) Patient Question; Or ders (US DVT LOWER BILATERAL) Start: 07-27-2022 Telephone encounter Micheline de la torre RN [facility] Comment on above: Appointment Start: 07-20-2022 E-mail encounter fro travis caregiver Ccf Provider [facility] Start: 07-20-2022 Patient encounter procedure Ccf Provider [facility] Comment on above: Appointment update Start: 07-20-2022 Telephone encounter Travis House RN [facility] Comment on above: Orders (Appointment update) Start: 07-16-2022 Refill Deniz Wagoner Work Phone: [facility] Comment on above: Refill Request Start: 07-14-2022 Telephone encounter Agustin lawson APRN.MANAGER PHARMACY Work Phone: [facility] Comment on above: Patient Question (Me dication) Start: 07-06-2022 Telephone encounter Susan ponce [facility] Work Phone: Pharmacy Medicine Comment on above: Pharmaceutical Representative - O ther (Discharged from pharmD services) Start: 07-06-2022 End: 07-06-2022 ambulatory [facility] Facility:[facility] Start: 07-06-2022 End: 07-06-2022 ambulatory Susan Cuello [facility] Work Phone: Pharmacy Medicine Comment on above: Type 2 diabetes vishal itus with diabetic polyneuropathy, with long-term current use of insulin (HCC) Start: 07-06-2022 End: 07-06-2022 Telemedicine consultation with patient Susan Copeland [facility] Work Phone: [place] [facility] Start: 07-05-2022 Telephone encounter Solange Arenas RN [facility] Comment on above: [place] HFC swelling Start: 07-05-2022 End: 07-05-2022 ambulatory Agustin Barahona APRN.MANAGER PHARMACY Work Phone: [facility] Comment on above: Cellulitis of right lower extremity (Primary Dx); Rash; Chronic diastolic congestive heart failure (HCC); Type 2 diabetes mellitus with diabetic polyneuropathy, with long-term current use of insulin (HCC); Stage 3b chronic kidney disease (HCC) Start: 07-05-2022 End: 07-05-2022 Telemedicine consultation with patient Agustin Barahona DARREL.MANAGER PHARMACY Work Phone: [facility] Start: 06-29-2022 Telephone encounter Frankie Deng MD Work Phone: [employer] Comment on above: Patient Update ([facility] PCP); cancelled [facility] Start: 06-27-2022 Telephone encounter Agustin Mondragon Ra renny ROJO.MANAGER PHARMACY Work Phone: [facility] Comment on above: Consult (SLEEP MEDIC INE) Start: 06-26-2022 Telephone encounter Deniz polo MD Work Phone: [facility] Comment on above: [place]-HFC;order request Results Consult (HOME HEALTH ) Patient Update Start: 06-23-2022 End: 06-23-2022 Patient encounter procedure Agustin Barahona DARREL.MANAGER PHARMACY Work Phone: [facility] Comment on above: Type 2 diabetes vishal itus with diabetic polyneuropathy, with long-term current use of insulin (HCC) (Primary Dx); Cellulitis of right lower extremity; Physical deconditioning; DIYA (obstructive sleep apnea); Chronic constipation; Recurrent UTI (urinary tract infection); Chronic respiratory failure with hypoxia ([facility]); Chronic obstructive pulmonary disease, unspecified COPD type ([facility]); Chronic heart failure with preserved ejection fraction (HFpEF) ([facility]); Coronary artery disease involving [place] coronary artery of [place] heart without angina pectoris; Stage 3b chronic kidney disease ([facility]); Elevated TSH Start: 06-12-2022 End: 06-12-2022 ambulatory [facility] Facility:[facility] Start: 06-09-2022 Refill Frankie Deng MD Work Phone: [employer] [facility] Comment on above: Refill Request Start: 05-30-2022 Refill Deniz Wagoner Work Phone: [facility] Cardiology [place] Comment on above: Refill Request Start: 05-23-2022 End: 05-23-2022 ambulatory [facility] Facility:[facility] Start: 05-23-2022 End: 05-23-2022 ambulatory Susan Cuello [facility] Work Phone: Pharmacy Medicine Comment on above: Type 2 diabetes vishal itus with diabetic polyneuropathy, with long-term current use of insulin (HCC) (Primary Dx) Start: 05-23-2022 End: 05-23-2022 Telemedicine consultation with patient Susan Cuello [facility] Work Phone: [facility] Start: 05-10-2022 End: 05-10-2022 [facility] Facility:[facility] Start: 05-10-2022 End: 05-10-2022 ambulatory Susan Cuello [facility] Work Phone: Pharmacy Medicine Comment on above: Type 2 diabetes vishal itus with diabetic polyneuropathy, with long-term current use of insulin (HCC) (Primary Dx) Start: 05-10-2022 End: 05-10-2022 Telemedicine consultation with patient Susan Cuello [facility] Work Phone: [facility] Start: 05-08-2022 Telephone encounter Frankie Deng MD Work Phone: [employer] [facility] Comment on above: Constipation; Edema Start: 04-30-2022 End: 05-07-2022 Evaluation and management of inpatient Gigi Diehl MD Work Phone: [facility] Comment on above: Urinary tract infect ion with hematuria, site unspecified (Primary Dx); Acute kidney injury superimposed on CKD (HCC) Start: 04-14-2022 Telephone encounter Susan ponce [facility] Work Phone: Pharmacy Medicine Comment on above: Care Coordination Start: 04-14-2022 End: 04-14-2022 ambulatory [facility] [facility] Start: 04-14-2022 End: 04-14-2022 ambulatory Susan Min [facility] Work Phone: Pharmacy Medicine Comment on above: Type 2 diabetes vishal itus with diabetic polyneuropathy, with long-term current use of insulin (HCC) (Primary Dx) Start: 04-14-2022 End: 04-14-2022 Telemedicine consultation with patient Susan Cuello [facility] Work Phone: [facility] Start: 04-13-2022 End: 04-14-2022 ambulatory Shea Childers BUILDING INSPECTION ENGINEER.MANAGER PHARMACY Work Phone: Mobile Services Comment on above: Recurrent UTI (urina ry tract infection) (Primary Dx); Type 2 diabetes mellitus with diabetic polyneuropathy, with long-term current use of insulin (HCC); Chronic heart failure with preserved ejection fraction (HFpEF) (HCC); DDD (degenerative disc disease), lumbar Start: 04-13-2022 End: 04-13-2022 Telemedicine consultation with patient Shea Sheng Childers BUILDING INSPECTION ENGINEER.MANAGER PHARMACY Work Phone: [employer]BILE [employer]IC[employer] Start: 04-11-2022 [...] 03-23-2022 Telephone encounter Sheree HUANG Work Phone: [facility] Comment on above: Home Care (Confirmat ion Call ) Start: 03-22-2022 End: 03-23-2022 ambulatory Susan Cuello [facility] Work Phone: Pharmacy Medicine Comment on above: Type 2 diabetes vishal itus with diabetic polyneuropathy, with long-term current use of insulin (HCC) (Primary Dx) Type 2 diabetes vishal itus with diabetic polyneuropathy, with long-term current use of insulin ([facility]) (Primary Dx); Stage 3b chronic kidney disease ([facility]); Chronic respiratory failure with hypoxia (HCC); Restrictive lung disease; Chronic heart failure with preserved ejection fraction (HFpEF) ([facility]); Morbid obesity with BMI of 45.0-49.9, adult ([facility]); Recurrent UTI (urinary tract infection); Primary hypertension; Coronary artery disease involving [place] heart without angina pectoris, unspecified vessel or lesion type; Mixed hyperlipidemia; DIYA (obstructive sleep apnea); Requires assistance with activities of daily living (ADL); Weakness of both legs; DDD (degenerative disc disease), lumbar; Spondylolisthesis of lumbar region; Trigger middle finger of right hand; History of COVID-19; Slow transit constipation Start: 03-22-2022 End: 03-22-2022 Telemedicine consultation with patient Susan Cuello [facility] Work Phone: [facility] Start: 03-17-2022 Refill Moe Wagoner Work Phone: Family Medicine Comment on above: Refill Request Start: 03-09-2022 Telephone encounter Merissa Jonas link [facility] Home Respiratory Therapy Comment on above: Oxygen Start: 03-08-2022 End: 03-08-2022 ambulatory Susan Cuello [facility] Work Phone: Pharmacy Medicine Comment on above: Type 2 diabetes vishal itus with diabetic polyneuropathy, with long-term current use of insulin ([facility]) (Primary Dx); Medication management Refill Request Start: 03-08-2022 End: 03-08-2022 Telemedicine consultation with patient Susan Cuello [facility] Work Phone: [facility] Start: 02-28-2022 Telephone encounter Moe deleon MD Work Phone: Family Medicine Comment on above: Patient Update; Medi cation Follow-up Start: 02-27-2022 Telephone encounter Deniz polo MD Work Phone: [facility] [place] Comment on above: Patient Update (D/C Plavic out of pill pack) Start: 02-27-2022 End: 02-27-2022 ambulatory Deniz Silva MD Work Phone: [facility] [place] Comment on above: Primary hypertension (Primary Dx); Mixed hyperlipidemia; Coronary arteriosclerosis in [place] artery; Chronic diastolic congestive heart failure (HCC); DIYA (obstructive sleep apnea) Start: 02-27-2022 End: 02-27-2022 Telemedicine consultation with patient Deniz Silva MD Work Phone: [facility] Start: 02-24-2022 Refill Deniz Wagoner Work Phone: [facility] [place] Comment on above: Refill Request Start: 02-19-2022 Refill Moe Savel M D Work Phone: [facility] Comment on above: Refill Request Start: 02-15-2022 End: 02-15-2022 ambulatory [facility] Facility:[facility] Start: 02-15-2022 End: 02-15-2022 ambulatory Susan Cuello RPh Work Phone: Pharmacy Medicine Comment on above: Type 2 diabetes vishal itus with diabetic polyneuropathy, with long-term current use of insulin (HCC) (Primary Dx) Start: 02-15-2022 End: 02-15-2022 Telemedicine consultation with patient Susan Cuello RPh Work Phone: [facility] Start: 01-31-2022 End: 01-31-2022 ambulatory [facility] Facility:[facility] Start: 01-30-2022 Refill Moe Savel M D Work Phone: [facility] Comment on above: Refill Request Start: 01-23-2022 Telephone encounter Susan ponce RPadelita Work Phone: Pharmacy Medicine Comment on above: Patient Update Start: 01-18-2022 End: 01-18-2022 Nursing evaluation of patient and report Nurse Card Chf [address] [facility] Comment on above: Acute congestive hea rt failure, unspecified heart failure type (HCC) Start: 01-13-2022 End: 01-13-2022 ambulatory [facility] Facility:[facility] Start: 01-06-2022 End: 01-06-2022 ambulatory [facility] Facility:[facility] Start: 12-19-2021 End: 12-20-2021 ambulatory [facility] Facility:[facility] Start: 12-16-2021 End: 12-16-2021 ambulatory [facility] Facility:[facility] Start: 10-01-2021 End: 10-11-2021 Evaluation and management [...] Ann Reed MD Work Phone: Start: 02-25-2024 Culture bacterial qu anttative colony count urine Clare Del Cid MD Work Phone: Start: 02-25-2024 Urinalysis complete [...] Hemoglobin A1c/Hemoglobin.total in Blood Agustin Mondragon Jun BUILDING INSPECTION ENGINEER.MANAGER PHARMACY Work Phone: Start: 06-23-2022 Adult depression scr eening assessment Agustin Jun ROJO.MANAGER PHARMACY Work Phone: Start: 05-06-2022 Blood count complete [...] r eal time w/image complete Hema Carl BUILDING INSPECTION ENGINEER - MANAGER PHARMACY Work Phone: Start: 05-02-2022 Gluc bld gluc [...] Assay of urine sodium M efrain Carl BUILDING INSPECTION ENGINEER - MANAGER PHARMACY Work Phone: Start: 05-01-2022 Gluc bld gluc [...] TO MG FOR LOW K Duyen Paz BUILDING INSPECTION ENGINEER - [facility] Work Phone: Start: 10-11-2021 Manual Differential panel - Blood Duyen Paz BUILDING INSPECTION ENGINEER - [facility] Work Phone: Start: 10-10-2021 Gluc bld gluc [...] TO MG FOR LOW K Duyen Paz BUILDING INSPECTION ENGINEER - [facility] Work Phone: Start: 10-10-2021 Blood count complete auto&auto difrntl wbc Duyen Paz BUILDING INSPECTION ENGINEER - [facility] Work Phone: Start: 10-10-2021 Manual Differential panel - Blood Duyen Paz BUILDING INSPECTION ENGINEER - [facility] Work Phone: Start: 10-09-2021 Gluc bld gluc [...] TO MG FOR LOW K Duyen Paz BUILDING INSPECTION ENGINEER - MANAGER PHARMACY Work Phone: Start: 10-09-2021 Manual Differential panel - Blood Duyen Paz BUILDING INSPECTION ENGINEER - MANAGER PHARMACY Work Phone: Start: 10-09-2021 Gluc bld gluc [...] thyroid sti mulating hormone tsh Duyen Paz BUILDING INSPECTION ENGINEER - MANAGER PHARMACY Work Phone: Start: 10-08-2021 BASIC METABOLIC PANE L W/ REFLEX TO MG FOR LOW K Duyen N Jackson BUILDING INSPECTION ENGINEER - MANAGER PHARMACY Work Phone: Start: 10-08-2021 Manual Differential panel - Blood Duyen Paz BUILDING INSPECTION ENGINEER - MANAGER PHARMACY Work Phone: Start: 10-07-2021 Gluc bld gluc mntr d ev cleared fda spec home use Darius Knutson MD Work Phone: Start: 10-07-2021 Chloride urine Hema Carl BUILDING INSPECTION ENGINEER - [facility] Work Phone: Start: 10-07-2021 Urine albumin quantitative Harish Chavis MD Work Phone: Start: 10-07-2021 Gluc bld gluc mntr d ev cleared fda spec home use Quique Aranda MD Work Phone: Start: 10-07-2021 Pulmonary perfusion imaging particulate Saniya Oshea BUILDING INSPECTION ENGINEER - [facility] Work Phone: Start: 10-07-2021 Radiologic exam chest 2 views Saniya Oshea BUILDING INSPECTION ENGINEER - [facility] Work Phone: Start: 10-07-2021 Gluc bld gluc mntr d ev cleared fda spec home use Darius Knutson MD Work Phone: Start: 10-07-2021 Gluc bld gluc mntr d ev cleared fda spec home use Darius Knutson MD Work Phone: Start: 10-07-2021 BASIC METABOLIC PANE L W/ REFLEX TO MG FOR LOW K Duyen Paz BUILDING INSPECTION ENGINEER - MANAGER PHARMACY Work Phone: Start: 10-07-2021 Blood count complete auto&auto difrntl wbc Duyen Paz BUILDING INSPECTION ENGINEER - MANAGER PHARMACY Work Phone: Start: 10-07-2021 Manual Differential panel - Blood Duyen Paz BUILDING INSPECTION ENGINEER - MANAGER PHARMACY Work Phone: Start: 10-06-2021 Dup-scan xtr veins c omplete bilateral study Saniya Oshea BUILDING INSPECTION ENGINEER - [facility] Work Phone: Start: 10-06-2021 End: 10-06-2021 Gluc bld gluc mntr dev cleared fda spec home use Darius Knutson MD Work Phone: Start: 10-06-2021 BASIC METABOLIC PANE L W/ REFLEX TO MG FOR LOW K Duyen N Jackson BUILDING INSPECTION ENGINEER - MANAGER PHARMACY Work Phone: Start: 10-06-2021 Manual Differential panel - Blood Duyen Paz BUILDING INSPECTION ENGINEER - MANAGER PHARMACY Work Phone: Start: 10-05-2021 Gluc bld gluc [...] Potassium serum plasma/whole blood Duyen N Jackson BUILDING INSPECTION ENGINEER - MANAGER PHARMACY Work Phone: Start: 10-05-2021 BASIC METABOLIC PANE L W/ REFLEX TO MG FOR LOW K Duyen N [place] BUILDING INSPECTION ENGINEER - MANAGER PHARMACY Work Phone: Start: 10-05-2021 Blood count complete auto&auto difrntl wbc Duyen N Jackson BUILDING INSPECTION ENGINEER - MANAGER PHARMACY Work Phone: Start: 10-04-2021 Gluc bld gluc [...] TO MG FOR LOW K Duyenwojciech Paz BUILDING INSPECTION ENGINEER - MANAGER PHARMACY Work Phone: Start: 10-04-2021 Natriuretic peptide All wojciech Adenike Paz BUILDING INSPECTION ENGINEER - MANAGER PHARMACY Work Phone: Start: 10-03-2021 Gluc bld gluc mntr d ev cleared fda spec home use Darius Knutson MD Work Phone: Start: 10-03-2021 Gluc bld gluc mntr d ev cleared fda spec home use Darius Knutson MD Work Phone: Start: 10-03-2021 Us retroperitoneal r eal time w/image complete Duyen Luver [facility] Work Phone: Start: 10-03-2021 Echo tthrc r-t 2d w/ wom-mode compl spec&colr d Duyen Paz [facility] Work Phone: Start: 10-03-2021 Creatinine other source Duyen Luver [facility] Work Phone: Start: 10-03-2021 Gluc bld [...] step me thod nos each organism Duyen Paz BUILDING INSPECTION ENGINEER - MANAGER PHARMACY Work Phone: Start: 10-02-2021 STREP PNEUMONIAE ANTIGEN Duyen Luver BUILDING INSPECTION ENGINEER - MANAGER PHARMACY Work Phone: Start: 10-02-2021 Comprehensive metabolic panel [...] - Tdap) DTaP/Tdap/Td vaccine (2 - Tdap) [facility] Start: 09-27-2026 DTaP/Tdap/Td Vaccines (2 - Tdap) DTaP/Tdap/Td Vaccines (2 - Tdap) [facility] Start: 09-27-2026 Urine microalbumin profile DTAP,TDAP,TD (2 - Tdap) [facility] Start: 09-27-2026 [facility] Start: 03-09-2025 Creatinine measurement Creatinine Level [facility] Start: 03-09-2025 Diabetes: Estimated Glomerular Filtration Rate for [facility] Diabetes: Estimated Glomerular Filtration Rate for [facility] Start: 03-09-2025 Potassium measurement Potassium Level [facility] Start: 02-27-2025 Creatinine measurement [facility] Start: 02-27-2025 Potassium measurement [facility] Start: 02-21-2025 Hemoglobin A1c measurement [facility] Start: 02-14-2024 HEMOGLOBIN/HEMATOCRIT HEMOGLOBIN/HEMATOCRIT [facility] Start: 02-14-2024 Hepatitis B surface antibody level LDL CHOLESTEROL [facility] Start: 02-14-2024 SERUM CREATININE SERUM CREATININE [facility] Start: 01-29-2024 HEMOGLOBIN/HEMATOCRIT HEMOGLOBIN/HEMATOCRIT [facility] Start: 01-29-2024 SERUM CREATININE SERUM CREATININE [facility] Start: 01-17-2024 SERUM CREATININE SERUM CREATININE [facility] Start: 01-16-2024 HEMOGLOBIN/HEMATOCRIT HEMOGLOBIN/HEMATOCRIT [facility] Start: 01-16-2024 SERUM CREATININE SERUM CREATININE [facility] Start: 01-03-2024 HEMOGLOBIN/HEMATOCRIT HEMOGLOBIN/HEMATOCRIT [facility] Start: 01-03-2024 SERUM CREATININE SERUM CREATININE [facility] Start: 11-10-2023 HEMOGLOBIN/HEMATOCRIT HEMOGLOBIN/HEMATOCRIT [facility] Start: 11-09-2023 SERUM CREATININE SERUM CREATININE [facility] Start: 10-24-2023 HEMOGLOBIN/HEMATOCRIT HEMOGLOBIN/HEMATOCRIT [facility] Start: 10-24-2023 SERUM CREATININE SERUM CREATININE [facility] Start: 09-29-2023 ANNUAL PCP TEAM CHRONIC DISEASE VISIT ANNUAL PCP TEAM CHRONIC DISEASE VISIT [facility] Start: 08-27-2023 SERUM CREATININE SERUM CREATININE [facility] Start: 08-26-2023 SERUM CREATININE SERUM CREATININE [facility] Start: 08-25-2023 HEMOGLOBIN/HEMATOCRIT HEMOGLOBIN/HEMATOCRIT [facility] Start: 08-24-2023 Hepatitis B screening URINE ALBUMIN:CREATININE RATIO [facility] Start: 08-23-2023 HEMOGLOBIN/HEMATOCRIT HEMOGLOBIN/HEMATOCRIT [facility] Start: 08-23-2023 SERUM CREATININE SERUM CREATININE [facility] Start: 2023 ANNUAL PCP TEAM CHRONIC DISEASE VISIT ANNUAL PCP TEAM CHRONIC DISEASE VISIT [facility] Start: 2023 BP CONTROLLED (<130/80) BP CONTROLLED (<130/80) [facility] in Start: 08-15-2023 Hemoglobin A1c/Hemoglobin.total in Blood HBA1C [facility] Start: 08-01-2023 HEMOGLOBIN/HEMATOCRIT HEMOGLOBIN/HEMATOCRIT [facility] Start: 08-01-2023 SERUM CREATININE SERUM CREATININE [facility] Start: 07-19-2023 HEMOGLOBIN/HEMATOCRIT HEMOGLOBIN/HEMATOCRIT [facility] Start: 07-19-2023 SERUM CREATININE SERUM CREATININE [facility] Start: 07-05-2023 ANNUAL PCP TEAM CHRONIC DISEASE VISIT ANNUAL PCP TEAM CHRONIC DISEASE VISIT [facility] Start: 06-29-2023 COVID-19 Vaccine () COVID-19 Vaccine () [facility] Start: 06-29-2023 Influenza vaccination [facility] Start: 06-29-2023 Urine [address] Urine Culture [facility] Start: 06-29-2023 [facility] Start: 06-23-2023 Adult depression screening assessment DEPRESSION SCREENING [facility] Start: 06-23-2023 ANNUAL PCP TEAM CHRONIC DISEASE VISIT ANNUAL PCP TEAM CHRONIC DISEASE VISIT [facility] Start: 06-23-2023 BP CONTROLLED (<130/80) BP CONTROLLED (<130/80) [facility] in Start: 06-23-2023 HEMOGLOBIN/HEMATOCRIT HEMOGLOBIN/HEMATOCRIT [facility] Start: 06-23-2023 Hepatitis B surface antibody level LDL CHOLESTEROL [facility] Start: 06-23-2023 SERUM CREATININE SERUM CREATININE [facility] Start: 04-30-2023 HEMOGLOBIN/HEMATOCRIT HEMOGLOBIN/HEMATOCRIT [facility] Start: 04-13-2023 ANNUAL PCP TEAM CHRONIC DISEASE VISIT ANNUAL PCP TEAM CHRONIC DISEASE VISIT [facility] Start: 04-10-2023 HEMOGLOBIN/HEMATOCRIT HEMOGLOBIN/HEMATOCRIT [facility] Start: 04-10-2023 SERUM CREATININE SERUM CREATININE [facility] Start: 03-22-2023 ANNUAL PCP TEAM CHRONIC DISEASE VISIT ANNUAL PCP TEAM CHRONIC DISEASE VISIT [facility] Start: 03-22-2023 BP CONTROLLED (<130/80) BP CONTROLLED (<130/80) [facility] Start: 12-24-2022 Hemoglobin A1c/Hemoglobin.total in Blood HBA1C [facility] Start: 12-19-2022 ANNUAL PCP TEAM CHRONIC DISEASE VISIT ANNUAL PCP TEAM CHRONIC DISEASE VISIT [facility] Start: 10-29-2022 ADVANCE DIRECTIVE DISCUSSION ADVANCE DIRECTIVE DISCUSSION [facility] Start: 10-29-2022 DEPRESSION ASSESSMENT DEPRESSION ASSESSMENT [facility] Start: 10-11-2022 Creatinine measurement [facility] Start: 10-11-2022 [facility] Start: 10-07-2022 Diabetes: Urine Albumin-Creatinine Ratio for [facility] Diabetes: Urine Albumin-Creatinine Ratio for [facility] Start: 10-07-2022 Hepatitis B screening URINE ALBUMIN:CREATININE RATIO [facility] Start: 10-07-2022 Urine screening for protein Diabetic microalbuminuria test [facility] Start: 08-26-2022 BP CONTROLLED (<130/80) BP CONTROLLED (<130/80) [facility] Start: 08-26-2022 Hepatitis B surface antibody level LDL CHOLESTEROL [facility] Start: 08-26-2022 Lipid panel Lipids [facility] Start: 08-26-2022 SERUM CREATININE SERUM CREATININE [facility] Start: 2022 ADVANCE DIRECTIVE DISCUSSION ADVANCE DIRECTIVE DISCUSSION [facility] Start: 2022 BONE DENSITY BONE DENSITY [facility] Start: 07-07-2022 HEMOGLOBIN/HEMATOCRIT HEMOGLOBIN/HEMATOCRIT [facility] Start: 06-29-2022 Influenza vaccination [facility] Start: 06-21-2022 Adult depression screening assessment DEPRESSION SCREENING [facility] Start: 05-23-2022 End: 10-28-2022 Hemoglobin A1c in Blood HGB A1C Lab Routine Type 2 diabetes mellitus with diabetic polyneuropathy, with long-term current use of insulin (HCC) Expected: 05/23/2022 (Approximate), Expires: 10/28/2022 [facility] Work Phone: Comment on above: Expected: [...] of insulin (HCC) Expected: 03/25/2022, Expires: 05/25/2022 [facility] Work Phone: Comment on above: Expected: 03/25/2022, Expires: 2 Start: 03-25-2022 End: 05-25-2022 Comprehensive metabolic 2000 panel - Serum or Plasma COMP METABOLIC PANEL Lab Routine Type 2 diabetes mellitus with diabetic polyneuropathy, with long-term current use of insulin (HCC) Expected: 03/25/2022, Expires: 05/25/2022 [facility] Work Phone: Comment on above: Expected: 03/25/2022, Expires: 2 Start: 03-25-2022 End: 05-25-2022 Hemoglobin A1c/Hemoglobin.total in Blood HGB A1C Lab Routine Type 2 diabetes mellitus with diabetic polyneuropathy, with long-term current use of insulin (HCC) Expected: 03/25/2022, Expires: 05/25/2022 [facility] Work Phone: Comment on above: Expected: 03/25/2022, Expires: 2 Start: 03-25-2022 End: 05-25-2022 LIPID PANEL, NONFASTING LIPID PANEL, NONFASTING Lab Routine Type 2 diabetes mellitus with diabetic polyneuropathy, with long-term current use of insulin (HCC) Expected: 03/25/2022, Expires: 05/25/2022 [facility] Work Phone: Comment on above: Expected: 03/25/2022, Expires: 2 Start: 03-25-2022 End: 05-25-2022 Thyrotropin [Units/volume] in Serum or Plasma TSH BLD Lab Routine Primary hypertension Expected: 03/25/2022, Expires: 05/25/2022 [facility] Work Phone: Comment on above: Expected: 03/25/2022, Expires: 2 Start: 11-26-2021 Hemoglobin A1c/Hemoglobin.total in Blood HBA1C [facility] Start: 11-15-2021 3 comp foot exam completed DIABETIC FOOT EXAM [facility] Start: 10-29-2021 DEPRESSION ASSESSMENT DEPRESSION ASSESSMENT [facility] Start: 10-04-2021 [facility] Start: 06-30-2021 PNEUMOCOCCAL (2 - PCV) PNEUMOCOCCAL (2 - PCV) [facility] Start: 06-30-2021 Pneumococcal 0-64 years Vaccine (2 - PCV) Pneumococcal 0-64 years Vaccine (2 - PCV) [facility] Start: 06-30-2021 PNEUMOCOCCAL: 65+ (2 - PCV) PNEUMOCOCCAL: 65+ (2 - PCV) [facility] Start: 2017 RSV Immunization aged 60 or older (1 - 1-dose 60+ series) RSV Immunization aged 60 or older (1 - 1-dose 60+ series) [facility] Start: 2017 [facility] Start: 2007 Screening for malignant neoplasm of breast [facility] Start: 2007 Shingles vaccine (1 of 2) Shingles vaccine (1 of 2) [facility] Start: 2007 Zoster Vaccines (1 of 2) Zoster Vaccines (1 of 2) [facility] Start: 2007 [facility] Start: 2002 COLOGUARD (FIT-DNA) COLOGUARD (FIT-DNA) [facility] Start: 2002 Colonoscopy COLONOSCOPY [facility] Start: 2002 COLORECTAL CANCER SCREENING COLORECTAL CANCER SCREENING [facility] Start: [address] COLONOGRAPHY [facility] Start: 2002 FECAL OCCULT BLOOD FECAL OCCULT BLOOD [facility] Start: 2002 Screening for malignant neoplasm of colon [facility] Start: 2002 SIGMOIDOSCOPY SIGMOIDOSCOPY [facility] Start: 1997 Mammography MAMMOGRAM [facility] Start: 1997 Screening for malignant neoplasm of breast [facility] Start: 1992 [facility] Start: 1987 Screening for malignant neoplasm of cervix [facility] Start: 1987 Zoledronic acid therapy ALPHA-1 ANTITRYPSIN DEFICIENCY SCREENING [facility] Start: 1978 Screening for malignant neoplasm of cervix [facility] Start: 1975 Diabetic retinal exam Diabetic retinal exam [facility] Start: 1975 Hepatitis C screening [facility] Start: 1972 HIV screening [facility] Start: 1969 Depression Monitoring Depression Monitoring [facility] Start: 1969 Depression Screen Depression Screen [facility] Start: 1969 [facility] Start: 1967 Diabetic foot examination [facility] Start: 1967 Glaucoma screening [facility] Start: 1967 Hemoglobin A1c measurement A1C test (Diabetic or Prediabetic) [facility] Start: 1967 Hepatitis C antibody, confirmatory test DILATED RETINAL EXAM [facility] Start: 1967 Lipid panel [facility] Start: 1967 Preventive dental service [facility] Start: 1962 COVID-19 Vaccine (1) COVID-19 Vaccine (1) [facility] Start: 1957 Annual Wellness Visit (AWV) Annual Wellness Visit (AWV) [facility] Start: 1957 Echocardiography Echocardiogram [facility] Start: 1957 Hepatitis C screening [facility] Start: 1957 Lipid panel [facility] Start: 1957 Medicare Annual Wellness (AWV) Medicare Annual Wellness (AWV) [facility] Start: 1957 Screening for malignant neoplasm of colon [facility] Start: 1957 Screening for osteoporosis [facility] Start: 1957 [facility] Bacteria identified in Blood by Culture [facility] Work Phone: End: 05-07-2022 Basic metabolic 2000 panel - Serum or Plasma Basic Metabolic Panel Lab Routine One Time for 1 Occurrences starting 05/07/2022 until 05/07/2022 [employer] Work Phone: Comment on above: One Time for 1 Occurrences starting 04/28 until 05/07/2022 Basic Metabolic Pane l w/ Reflex to MG [employer] Work Phone: End: 02-21-2024 Blood gases, venous measurement [facility] [employer] Work Phone: CBC W Auto Different ial panel - Blood Daily [employer] Work Phone: CBC W Auto Different ial panel - Blood Daily [employer] Work Phone: Comment on above: Daily until discontinued starting 2021, 6 completed Comprehensive Metabo lic Panel w/ Reflex to MG Comprehensive Metabolic Panel w/ Reflex to MG Lab Routine Daily until discontinued starting 05/01/2022, 6 completed Daily [employer] Work Phone: Comment on above: Daily until discontinued starting 2021, 6 completed End: 04-30-2022 Culture, Blood 1 Daily [employer] Work Phone: Comment on above: One Time for 1 Occurrences starting 12/2021 until 04/30/2022 End: 04-30-2022 Culture, Blood 2 Daily [employer] Work Phone: Comment on above: One Time for 1 Occurrences starting 12/2021 until 04/30/2022 End: 10-02-2021 Culture, Respiratory Daily [employer] Work Phone: End: 09-15-2023 Dup-scan xtr veins complete bilateral study US DVT LOWER BILAT Radiology LALA Leg swelling 1 Occurrences starting 2022 until 09/15/2023 [facility] [employer] Work Phone: Comment on above: 1 Occurrences starting 2022 until 09/15/2023 End: 09-01-2023 Dup-scan xtr veins complete bilateral study US DVT LOWER BILAT Radiology Routine Bilateral leg edema 1 Occurrences starting 08/02/2022 until 09/01/2023 [facility] [employer] Work Phone: Comment on above: 1 Occurrences starting 08/02/2022 until 09/01/2023 Glucose [Mass/volume ] in Serum or Plasma Daily [employer] Work Phone: Glucose [Mass/volume ] in Serum or Plasma Daily [employer] Work Phone: Glucose [Mass/volume ] in Serum or Plasma Daily [employer] Work Phone: Comment on above: As Needed until discontinued starting 4X Daily (AC & HS) u ntil discontinued starting 04/30/2022 Hemoglobin A1c/Hemoglobin.total in Blood HEMOGLOBIN A1C (POC) Lab Routine Type 2 diabetes mellitus with diabetic polyneuropathy, with long-term current use of insulin (HCC) Ordered: 06/23/2022 [facility] Work Phone: Comment on above: Ordered: 06/23/2022 End: 04-30-2022 Lactate, Sepsis [facility] Work Phone: Comment on above: Now Then Every 2hr for 2 Occurrences sta rting 04/30/2022 until 04/30/2022, 1 completed End: 10-02-2021 Microscopic observation [Identifier] in Unspecified specimen by Gram stain Daily [employer] Work Phone: Oxygen therapy [Mini mum Data Set] Daily [employer] Work Phone: Oxygen therapy [Mini mum Data Set] Daily [employer] Work Phone: Oxygen therapy [Mini mum Data Set] Initiate Oxygen Therapy Protocol Respiratory Care Routine As Needed until discontinued starting 04/30/2022 Daily [employer] Work Phone: Comment on above: As Needed until discontinued starting End: 07-23-2023 PAP TITRATION PSG (CPAP, BIPAP, ASV) PAP TITRATION PSG (CPAP, BIPAP, ASV) Procedures Routine DIYA (obstructive sleep apnea) 1 Occurrences starting 06/23/2022 until 07/23/2023 [facility] Work Phone: Comment on above: 1 Occurrences starting 06/23/2022 until 07/23/2023 End: 10-07-2021 Urinalysis with Microscopic [facility] Work Phone: End: 10-03-2021 Wound ostomy eval and treat [facility] Work Phone: [facility] Immunizations Immunization Date Immunization Notes Care Provider Elizabeth perrin 08-26-2021 influenza, injectabl e, quadrivalent, contains preservative Nurse 2 [facility] 09-06-2020 influenza, high dose seasonal, preservative-free Nurse 2 [facility] 06-30-2020 influenza, injectabl e, quadrivalent, preservative free Nurse 2 [facility] 06-30-2020 pneumococcal polysac charide vaccine, 23 valent Nurse 2 [facility] 09-27-2016 diphtheria, tetanus toxoids and acellular pertussis vaccine Nurse 2 [facility] Payers Date Payer Category Payer Self-pay 2021 [place] [id number] 2021-Present [phone] [address] [place] [address] Medicaid [id number] 2021 Medicaid [id number] 2021 Medicare [facility] MEDICARE [facility] DUAL COMPLETE HMO SNP [id number] 2021-Present [phone] [address] [place] [address] Medicare [id number] 2021 Unknown [id number] 2021 Medicare [id number] 2020 Medicaid [id number] [id number] 2014 Medicare [id number] [id number] [id number] 2014 Medicare [id number] Unknown [id number] Unknown [id number] 2.16.840.1.202271.3.579.2.462 Unknown [id number] 2.16.840.1.159494.3.579.2.462 Unknown [id number] 2.16.840.1.120825.3.579.2.462 Unknown [id number] 2.16.840.1.872060.3.579.2.462 Unknown [id number] 2.16.840.1.210597.3.579.2.462 Unknown [id number] 2.16.840.1.803087.3.579.2.462 Unknown [id number] 2.16.840.1.309957.3.579.2.462 Unknown [id number] 2.16.840.1.511796.3.579.2.462 Unknown [id number] 2.16.840.1.328988.3.579.2.462 Unknown [id number] 2.16.840.1.852135.3.579.2.462 Unknown [id number] 2.16.840.1.577861.3.579.2.462 Unknown [id number] 2.16.840.1.765004.3.579.2.462 Unknown [id number] 2.16.840.1.795790.3.579.2.462 Unknown [id number] [id number] Social History Date Type Detail Facility Start: 10-02-2021 End: 06-23-2022 Tobacco smoking status MSIS Ex-smoker [facility] Work Phone: Start: 10-02-2021 End: 06-23-2022 Tobacco use and exposure Smokeless tobacco non-user [facility] Work Phone: Start: 1955 Sex [facility]igned At [facility] Work Phone: End: 08-29-2011 History of tobacco use Current smoker [facility] Work Phone: End: 08-29-2011 History of tobacco use Cigarette Smoker [facility] Work Phone: Start: 12-19-2021 End: 02-11-2023 Alcohol intake Lifetime non-drinker (finding) [facility] Start: 10-10-2020 End: 11-11-2022 History SDOH Alcohol Frequency 1 [facility] Start: 01-08-2022 End: 09-29-2022 Exposure to SARS-CoV-2 (event) Unable to assess [facility] Start: 02-17-2022 End: 08-22-2022 Exposure to SARS-CoV-2 (event) Not sure [facility] Start: 11-11-2022 End: 02-13-2023 History SDOH Financial 5 [facility] Start: 11-11-2022 End: 02-13-2023 History SDOH Transport Med 2 [facility] Start: 1955 Sex Assigned At Female [facility] Start: 02-11-2023 End: 03-06-2024 History of Social function [facility] Work Phone: Start: 02-11-2023 End: 03-06-2024 Tobacco use panel [facility] Work Phone: How hard is it for y ou to pay for the very basics like food, housing, medical care, and heating Not hard at all [facility] Work Phone: (I/We) worried arya er (my/our) food would run out before (I/we) got money to buy more. Never true [facility] Work Phone: In the past 12 month s, was there a time when you were not able to pay the mortgage or rent on time? No [facility] Work Phone: How often to you hav e a drink containing alcohol? Never [facility] Start: 03-06-2024 Alcohol intake Ex-drinker (finding) [facility] Work Phone: Start: 01-02-2025 End: 02-05-2025 Sex Female (finding) [facility] Medical Equipment Procedure Code Equipment Code Equipment [...] 07:08 PM Patient Name: KIMBERLY PATEL Location: [address]/[facility] [id number] A Date of : 1955 Placement Information Referral Type:Longterm ICF - Return Referral ID:[id number] Provider Name:[facility] Address 1:[address] [place] [address] Address 2: City:[place] Selection Factors:Returning to Facility State:[place] Care Coordination Daily Note/Update Clinical Update: active discharge orders Discharge Plan: return to [facility] Discharge Barriers: none Chart reviewed. Received message from attending stating patient is cleared for discharge. Discharge orders in. ANN and med rec complete. Submitted ride request via [employer] - awaiting acceptance and confirmation. Received notification that cot transportation has been setup for 1000 with [employer]. Phoned patient's daughter, Alexandro Cote, at [phone]. Received VM identifying full name. LM to notify of patient discharge and transport time. Notified RN. RN will notify patient. Messaged facility via [employer] to notify. Sent AVS and MAR to facility via [employer]. TCC will remain available for any additional discharge needs. Care Coordination Daily Note/Update Clinical Update: blood cultures from 03/07 resulted as normal this AM so, per 03/07 ID note, no further antimicrobial treatment is needed. No leukocytosis per this morning's labs. Discharge Plan: return to [facility] Discharge Barriers: clinical stability Chart reviewed. [...] antibiotics. Discharge plan is to return to [facility] when medically stable. Patient is [facility] resident there. . Discharge Milestones and Delays [...] (Days): 1 GMLOS: 3.4 [address]erral placed to [facility] for return via Careport per TCC request. Await review and response regarding ability to accept. TCC notified. Care Managment Initial Assessment Date: 03/06/2024 Patient Name: Kimberly Patel : 1955 Patient Information Source of Information: (recent assessment 02/22/24) Name/Contact Information: ALEXANDRO COTE [phone] DAUGHTER Cognition/Language: Confused at baseline Permission given to speak with patient lead generation representative/caregiver as indicated: Yes Confirmation of Payer with patient/family: Yes Payer Name: MEDICARE AND [facility] MEDICAID : No Confirmation of Primary Care Physician: Confirmed PCP Name: DR. QUICK Seen in last 2 years?: Yes Primary Caregiver: Other (Comment) If assistance needed, confirmed caregiver ready, willing and able to care for patient at discharge: Yes Confirmed with: STAFF AT [facility] Living Arrangements Current Residence: ([facility]) Number of Floors 1 Number of Entry Steps: (LEVEL ENTRY) Bed/Bath Levels: Both first floor Facility: Longterm/Residental Care Facility Name: [facility] Plan to Return: Yes Lives with: Other (Comment) (F) Support Systems: Children, Comments (Other) ([facility] STAFF) Activities of Daily Living Ambulation: Total Care Bathing/Dressing: Total Care Elimination/Continence/Toileting : Total Care Feeding: asst .set up Who Assists with Activities of Daily Living: F STAFF Instrumental Activities of Daily Living Prescription Coverage: Yes Pharmacy Used: [facility] STAFF Medication Management: Medication dispenser Who assists with medication securing and setup?: [facility] Transportation/Shopping: Assistance Provider Transportation/Shopping Assistance Provider Name: PAYOR PROVIDED TRANSPORT Transportation Mode: Payer provided transport service Needs Assistance with Transportation at Discharge: Yes Meal Preparation: Assistance Provider Meal Prep Assistance Provider Name: EC Laundry/Cleaning: Assistance Provider Laundry/Cleaning Assistance Provider Name: [facility] Finances/Bill Paying: Assistance Provider Finances/Bill Payer Assistance Provider Name: DAUGHTER Communication: Independent, Emergency Call System Types of Care Services/Equipment Utilized Care Services: Dialysis Type: NA Durable Medical Equipment: Mohamud Lift, Hospital Bed, oxygen, Patient's Goal/Discharge Plan Patient expects to be discharged to: RETURN TO [facility] Discharge Planning Actions: Continue to follow Patient's Choice Rights and [employer] and Collaborative Relationships Disclosed as Indicated for Post-Acute Care: NA Interdisciplinary Team Engagement: Social Work Referral for: Additional Information: Inpatient status from [facility] with altered mental status. Recent hospitalization for UTI and is receiving iv invanz at long term via picc line. ID consulted. Repeat blood culture in am, bs ac and hs with ss coverage, daily labs, us of right upper ext negative for DVT. Anny call and speak with nurse Jenna at [facility] patient is mohamud lift at facility, is able to feed herself, takes pills in applesauce, is diabetic and ss coverage. She believes patient requires oxygen at the facility. Patient is [facility] at facility and Jenna believes has been there for about a year. Tentative discharge plan is to return to facility when medically stable. Did speak with patient's daughter Alexandro and she is agreeable with patient returning to [facility] when medically stable. . Vanessa Vu RN Tasked NEWSPAPER VENDOR to place referral in careport to return to [facility] under ICF level of care. . documented in this encounter [facility] 03-09-2024 Note Formatting of this n ote might be different from the original. Next Site of Care Admission Date: 03/05/2024 07:08 PM Patient Name: KIMBERLY PATEL Location: [address]/[facility] [id number] A Date of : 1955 Placement Information Referral Type:Longterm ICF - Return Referral ID:[id number] Provider Name:Katia Lopez [facility] Address 1:[address] [facility] [address] Address 2: City:[place] Selection Factors:Returning to Facility State:[place] [facility] 03-09-2024 Note Formatting of this n ote might be different from the original. Next Site of Care Admission Date: 03/05/2024 07:08 PM Patient Name: KIMBERLY PATEL Location: [address]/[facility] [id number] A Date of : 1955 Placement Information Referral Type:Longterm ICF - Return Referral ID:[id number] Provider Name:Katia Lopez [facility] Address 1:[address] [facility] [address] [facility] Address 2: City:[place] Selection Factors:Returning to Facility State:[place] [facility] 03-09-2024 Note Formatting of this n ote might be different from the original. Care Coordination Daily Note/Update Clinical Update: active discharge orders Discharge Plan: return to [facility] Discharge Barriers: none Chart reviewed. Received message from attending stating patient is cleared for discharge. Discharge orders in. ANN and med rec complete. Submitted ride request via [employer] - awaiting acceptance and confirmation. Received notification that cot transportation has been setup for 1000 with [employer]. Phoned patient's daughter, Alexandro Cote, at [phone]. Received VM identifying full name. LM to notify of patient discharge and transport time. Notified RN. RN will notify patient. Messaged facility via CarePort to notify. Sent AVS and MAR to facility via CarePort. TCC will remain available for any additional discharge needs. [facility] 03-09-2024 Note Formatting of this n ote might be different from the original. Care Coordination Daily Note/Update Clinical Update: active discharge orders Discharge Plan: return to [facility] Discharge Barriers: none Chart reviewed. Received message from attending stating patient is cleared for discharge. Discharge orders in. ANN and med rec complete. Submitted ride request via [employer] - awaiting acceptance and confirmation. Received notification that cot transportation has been setup for 1000 with [employer]. Phoned patient's daughter, Alexandro Cote, at [phone]. Received VM identifying full name. LM to notify of patient discharge and transport time. Notified RN. RN will notify patient. Messaged facility via CarePort to notify. Sent AVS and MAR to facility via [employer]Port. TCC will remain available for any additional discharge needs. [facility] 03-09-2024 Note Hospitalist Discharg e Summary [...] Commonly known as: Dupixent ergocalciferol 1.25 MG (38211 UT) capsule Commonly known as: Vitamin D-2 [...] tablet Generic drug (more content not included)... [facility] 03-09-2024 Hospital course Narrative Images from the [...] Commonly known as: Dupixent ergocalciferol 1.25 MG (33091 UT) capsule Commonly known as: Vitamin D-2 [...] Complexity: follow up within 7-14 calendar days (71135) [x] Severe Complexity: follow up within 7 calendar days (47113) Follow up Testing, Pending results or Referrals [...] DO Division of Hospitalist Medicine Inpatient Medical Services/[facility] 03/09/2024, 7:47 AM Total time Spent on Discharge: 31 minutes documented in this encounter [facility] 03-08-2024 Note [facility] - Infectious Diseases Attending Progress Note Subjective: States that she is feeling at baseline APPLIANCE ADJUSTER function I held a 10 min conversation [...] flank pain or vaginitis, thrush or rashes. KIVALINA: f/up for confusion/hallucinations, malaise on Day 11 Ertapenem. Now off of therapy since 03/05/24. She is a was ECF x 2 yrs since she can't walk, and was recently on IV TX for sepsis from ESBL E. Coli pyelonephritis bacteremia and hospitalized 02/20-02/28/24, then sent to [facility] on Ertapenem for anticipated 14 d. Multiple serious medical problems including COPD on 4 L NC chronically, and DM2 (Hb A1c 7/obesity related, CKD 3a, chronic anemia (hg baseline 9, now 8.3)) Urine culture repeated while Ertapenem held for concern for APPLIANCE ADJUSTER SE of Ertapenem. 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 [facility] 03-08-2024 History of Presen t illness Narrative Images from the original note were not included. [facility] - Infectious Diseases Attending Progress Note Subjective: States that she is feeling at baseline APPLIANCE ADJUSTER function I held a 10 min conversation [...] flank pain or vaginitis, thrush or rashes. KIVALINA: f/up for confusion/hallucinations, malaise on Day 11 [...] repeated while Ertapenem held for concern for APPLIANCE ADJUSTER SE of Ertapenem. 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 Hospitalist Progress Note 03/08/2024 [phone]: Please page me ([phone]) for patient care issues. [phone]: Please page [facility] Hospitalist for any issues. Subjective: Admit Date: [...] Hypertension Morbid obesity due to excess calories ([facility]) LABS: CBC: Recent Labs 03/05/24202903/07/2422603/08/24131 WBC 8.7 [...] - 03/09 vs 03/10? - Location - [facility] - Pending the following - stable mentation, abx recs from ID, consultants clearance. Toxic drug monitoring/narrow therapeutic index drug monitoring : # Drug name : # Route administered : # Method of monitoring : Extended Emergency Contact Information Primary Emergency Contact: Alexandro Cote Mobile Relation: Daughter Preferred language: Iraqi Welfare Aide needed? No Carmen Talamantes DO Division of Hospitalist Medicine Inpatient Medical Services/[facility] PAGER: Epic chat Images from the original note were not included. [facility] - Infectious Diseases Attending [...] was discontinued. She was recently admitted at [facility] from 02/20- 02/28/24 due to severe [...] #2 - Assess for effectiveness of treatment [[id number]] Blood, Venous Preliminary result Component Value Blood Culture Blood culture incubation started P 03/07/2024 0520 03/07/2024 0801 Blood culture Site #1 - Assess for effectiveness of treatment [[id number]] Blood, Venous Preliminary result Component Value Blood Culture Blood culture incubation started P 03/05/2024 2044 03/07/2024 0932 Urine culture [[id number]] (Abnormal) Urine, Clean Catch Preliminary result Component Value Urine Culture 50,000-90,000 CFU/mL Enterococcus raffinosus Abnormal P Susceptibility testing performed only upon request for cultures with multiple types of microorganisms below 100,000 CFU/ml. 10,000-50,000 CFU/mL Jose albicans Abnormal P 02/25/2024 1536 02/27/2024 1045 Urine culture [[id number]] (Abnormal) Urine, Clean Catch Final result Component Value Urine Culture Normal urogenital krys present 10,000-50,000 CFU/mL Jose albicans Abnormal 02/23/2024 0439 02/28/2024 1101 Blood culture Site #2 - Assess for effectiveness of treatment [[id number]] Blood, Venous Final result Component Value Blood Culture No growth at 5 days 02/23/2024 0438 02/28/2024 1101 Blood culture Site #1 - Assess for effectiveness of treatment [[id number]] Blood, Venous Final result Component Value Blood Culture No growth at 5 days Lines: Rt arm PICC Radiography/Echo/Other: CT head wo IV contrast [[id number]] Collected: 03/06/241623 Order Status: Completed Updated: 03/06/241628 [...] 4:28 PM EDT XR chest 1 view [[id number]] Collected: 03/05/242023 Order Status: Completed Updated: 03/05/242025 [...] were not included. Hospitalist Progress Note 03/07/2024 [phone]: Please page me ([phone]) for patient care issues. [phone]: Please page [facility] Hospitalist for any issues. Subjective: Admit Date: 03/05/2024 PCP: Lucy Quick Room#: [id number] Interval History: No overnight issues. Denies [...] Alexandro Cote Mobile Relation: Daughter Preferred language: [place] Welfare Aide needed? No Carmen Talamantes DO Division of Hospitalist Medicine Inpatient Medical Services/[facility] PAGER: [employer] chat Images from the original note were not included. OCCUPATIONAL THERAPY [facility] Name/MRN: Kimberly Patel ([id number]) Date: 03/07/2024 Chart review completed. 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 This patient is a total assist at baseline for ADLs, mohamud lift for for transfers and non-ambulatory. Pt is at her functional baseline and has no skilled OT needs. Will complete current OT order at this time. Nilsa Vieira OT Images from the original note were not included. PHYSICAL THERAPY [facility] Name/MRN: Kimberly Patel ([id number]) Date: 03/07/2024 Chart review completed. Per previous documentation and confirmation from CM documentation, this patient is a senior care resident at a facility and does not require auth to return. This patient is a total assist at baseline for ADLs, mohamud lift for for transfers and non-ambulatory. Pt is at her functional baseline and has no skilled PT needs. Will complete current PT order at this time. Jaky Hayes, PT Images from the original note were not included. Hospitalist Progress Note 03/06/[id number]: Please page sd ([phone]) for patient care issues. [phone]: Please page [facility] Hospitalist for any issues. Subjective: Admit Date: [...] History: Diagnosis Date CHF (congestive heart failure) ([facility]) COPD (chronic obstructive pulmonary disease) ([facility] HEALTH/[facility]) Diabetes mellitus ([facility]) LABS: CBC: Recent Labs 03/05/242029 WBC 8.7 [...] Alexandro Cote Mobile Relation: Daughter Preferred language: Iraqi Welfare Aide needed? No Carmen Talamantes DO Division of Hospitalist Medicine Inpatient Medical Services/[facility] PAGER: Epic chat documented in this encounter [facility] 03-08-2024 Note Hospitalist Progress Note 03/08/2024 [phone]: Please page me ([phone]) for patient care issues. [phone]: Please page [facility] night Hospitalist for any issues. Subjective: Admit [...] patient was reported to be hallucinating at [facility] where she was getting IV abx through [...] on Anticoagulation Anticipated (more content not included)... [facility] 03-08-2024 Note Formatting of this n ote might be different from the original. Care Coordination Daily Note/Update Clinical Update: blood cultures from 03/07 resulted as normal this AM so, per 03/07 ID note, no further antimicrobial treatment is needed. No leukocytosis per this morning's labs. Discharge Plan: return to [facility] Discharge Barriers: clinical stability Chart reviewed. Messaged attending to check on clinical stability for discharge. Awaiting response back. Received response back stating, further discussion with ID yesterday they were recommending negative cultures x72 hours, so patient will not be discharged today. if labs are stable tomorrow, plan for discharge tomorrow. TCC will continue to follow. [facility] 03-08-2024 Note Formatting of this n ote might be different from the original. Care Coordination Daily Note/Update Clinical Update: blood cultures from 03/07 resulted as normal this AM so, per 03/07 ID note, no further antimicrobial treatment is needed. No leukocytosis per this morning's labs. Discharge Plan: return to [facility] Discharge Barriers: clinical stability Chart reviewed. Messaged attending to check on clinical stability for discharge. Awaiting response back. Received response back stating, further discussion with ID yesterday they were recommending negative cultures x72 hours, so patient will not be discharged today. if labs are stable tomorrow, plan for discharge tomorrow. TCC will continue to follow. [facility] 03-07-2024 Note [facility] - Infectious Diseases Attending [...] was discontinued. She was recently admitted at [facility] from 02/20- 02/28/24 due to severe [...] #2 - Assess for effectiveness of treatment [[id number]] Blood, Venous Preliminary result Component Value Blood Culture Blood culture incubation started P 03/07/2024 0520 03/07/2024 0801 Blood culture Site #1 - Assess for effectiveness of treatment [[id number]] Blood, Venous Preliminary result Component Value Blood Culture Blood culture incubation started P 03/05/2024204303/07/2024 0932 Urine culture [[id number]] (Abnormal) Urine, Clean Catch Preliminary result Component Value Urine Culture 50,000-90,000 CFU/mL Enterococcus raffinosus Abnormal P Susceptibility testing performed only upon request for cultures with multiple types of microorganisms below 100,000 CFU/ml. 10,000-50,000 CFU/mL Jose albicans Abnormal P 02/25/2024 1536 02/27/2024 1045 Urine culture [[id number]] (Abnormal) Urine, Clean Catch Final result Component Value Urine Culture Normal urogenital krys present 10,000-50,000 CFU/mL Jose albicans Abnormal 02/23/2024 0439 02/28/2024 1101 Blood culture Site #2 - Assess for effectiveness of treatment [[id number]] Blood, Venous Final result Component Value Blood Culture No growth at 5 days 02/23/2024 0438 02/28/2024 1101 Blood culture Site #1 - Assess for effectiveness of treatment [[id number]] Blood, Venous Final result Component Value Blood Culture No growth at 5 days Lines: Rt arm PICC Radiography/Echo/Other: CT head wo IV contrast [[id number]] Collected: 03/06/241623 Order Status: Completed Updated: 03/06/241628 Narrative: Patient Name: KIMBERLY PATEL : 1955 Exam Date/Time: 03/06/2024 16:10 Procedure: CT HEAD WO IV CONTRAST Ordering Provider: TALAMANTES JONATHAN Reason For Exam: Mental status change, unknown cause CT HEAD WITHOUT CONTRAST CLINICAL HISTORY: Mental status change, unknown cause COMPARISON: 02/21/2024 TECHNIQUE: Helical CT of the brain without contrast. Dose reducti (more content not included)... [facility] 03-07-2024 Note Formatting of this n ote might be different from the original. Per Dr. Talamantes's note, anticipated dc is for 03/08/24. Pt transport is set in WILL CALL with [employer] for 03/08/24. [facility] 03-07-2024 Note Formatting of this n ote might be different from the original. Per Dr. Talamantes's note, anticipated dc is for 03/08/24. Pt transport is set in WILL CALL with [employer] for 03/08/24. [facility] 03-07-2024 Note Hospitalist Progress Note 03/07/2024 [phone]: Please page me ([phone]) for patient care issues. [phone]: Please page [facility] night Hospitalist for any issues. Subjective: Admit [...] patient was reported to be hallucinating at [facility] where she was getting IV abx through [...] Emergency Contact In (more content not included)... [facility] 03-07-2024 Note Formatting of this n ote is different from the original. Images from the original note were not included. Care Management Progress Note Repeat blood cultures this am. Urine culture in process. Monitor off iv antibiotics. Discharge plan is to return to [facility] when medically stable. Patient is [facility] resident there. . Discharge Milestones and Delays Expected Date/Time: 03/09/[address] discharge order Complete med reconciliation Case mgmt discharge readiness Clinical Stability Diagnsotic Workup Expected Discharge History Expected Date/Time Set By Reviewed At 03/09/2024 Eboni Fletcher MD 03/06/2024 1:18 PM 03/08/2024 Eboni Fletcher MD 03/06/2024 7:05 AM 03/06/2024 Janie Cortez MD 03/05/2024 11:00 PM Length of Stay (Days): 1 GMLOS: 3.4 [facility] 03-07-2024 Note Formatting of this n ote is different from the original. Images from the original note were not included. Care Management Progress Note Repeat blood cultures this am. Urine culture in process. Monitor off iv antibiotics. Discharge plan is to return to [facility] when medically stable. Patient is [facility] resident there. . Discharge Milestones and Delays Expected Date/Time: 03/09/[address] discharge order Complete med reconciliation Case mgmt discharge readiness Clinical Stability Diagnsotic Workup Expected Discharge History Expected Date/Time Set By Reviewed At 03/09/2024 Eboni Fletcher MD 03/06/2024 1:18 PM 03/08/2024 Eboni Fletcher MD 03/06/2024 7:05 AM 03/06/2024 Janie Cortez MD 03/05/2024 11:00 PM Length of Stay (Days): 1 GMLOS: 3.4 [facility] 03-07-2024 Note Care Management Prog ress Note Repeat blood cultures this am. Urine culture in process. Monitor off iv antibiotics. Discharge plan is to return to [facility] when medically stable. Patient is [facility] resident there. . Discharge Milestones and Delays Expected Date/Time: 03/09/[address] discharge order Complete med reconciliation Case mgmt discharge readiness Clinical Stability Diagnsotic Workup Expected Discharge History Expected Date/Time Set By Reviewed At 03/09/2024 Eboni Fletcher MD 03/06/2024 1:18 PM 03/08/2024 Eboni Fletcher MD 03/06/2024 7:05 AM 03/06/2024 Janie Cortez MD 03/05/2024 11:00 PM Length of Stay (Days): 1 GMLOS: 3.4 [facility] 03-06-2024 Hospital Discharg e instructions Erica Conley [...] Alexandro Cote Mobile Relation: Daughter Preferred language: Iraqi Welfare Aide needed? No Past Surgical History: Past Surgical History: Procedure Laterality Date CHOLECYSTECTOMY COLONOSCOPY throat biopsy Immunization History: There is no immunization history on file for this patient. Active Problems: Medical Problems Problem List * (Principal) Encephalopathy acute Sphenoid sinusitis, unspecified chronicity Bullous pemphigoid Acute on chronic diastolic congestive heart failure (HCC) Bipolar disorder, most recent episode depressed ([facility]/HCC) ([facility]) UTI (urinary tract infection) Physical debility (Chronic) Other hyperlipidemia CAD (coronary artery disease) Primary hypertension Neuropathy Bacteremia Acute kidney injury superimposed on CKD ([facility]) ([facility]) Type 2 diabetes mellitus with diabetic polyneuropathy, with long-term current use of insulin ([facility]) Isolation/Infection: Contact ESBL Nurse Assessment: Last Vital [...] assistance Toileting Total assistance Feeding Minimal assistance Log Chain Feeder Minimal assistance Med Delivery yes Wound Care [...] Score: @[email or web address]@ Discharging to Facility/ Agency Name: [facility] Address:[address] [place] [address] Dialysis Facility (if applicable) Name: Address: Dialysis Schedule: Phone: Fax: Business Management Manager/Framing Inspector signature: ICIAN SECTION Prognosis: excellent Condition at Discharge: stable Rehab Potential (if transferring to Rehab): excellent Recommended Labs or Other Treatments After Discharge: none Physician Certification: I certify the above information and transfer of Kimberly Patel is necessary for the continuing treatment of the diagnosis listed and that she requires penitentiary facility for less than 30 days. Update Admission H&P: No change in H&P PHYSICIAN SIGNATURE: documented in this encounter [facility] 03-06-2024 Note Formatting of this n ote might be different from the original. Referral placed to [facility] for return via Careport per TCC request. Await review and response regarding ability to accept. TCC notified. [facility] 03-06-2024 Note Formatting of this n ote might be different from the original. Referral placed to [facility] for return via [facility]port per TCC request. Await review and response regarding ability to accept. TCC notified. [facility] 03-06-2024 Note Referral placed to [facility] for return via Careport per TCC request. Await review and response regarding ability to accept. TCC notified. [facility] 03-06-2024 Consult note Associated Order (s): IP CONSULT TO INFECTIOUS DISEASES Images from the original note were not included. [facility] - Infectious Diseases Attending [...] appeared non-toxic. She was recently admitted at [facility] from 02/20- 02/28/24 due to severe [...] hours. 03/05/2024 2044 03/05/2024 2105 Urine culture [[id number]] Urine, Clean Catch In process Component Value No component results 02/25/2024 1536 02/27/2024 1045 Urine culture [[id number]] (Abnormal) Urine, Clean Catch Final result Component Value Urine Culture Normal urogenital krys present 10,000-50,000 CFU/mL Jose albicans Abnormal 02/23/2024 0439 02/28/2024 1101 Blood culture Site #2 - Assess for effectiveness of treatment [[id number]] Blood, Venous Final result Component Value Blood Culture No growth at 5 days 02/23/2024 0438 02/28/2024 1101 Blood culture Site #1 - Assess for effectiveness of treatment [[id number]] Blood, Venous Final result Component Value Blood Culture No growth at 5 days 02/21/2024 1759 02/25/2024 0824 Urine culture [[id number]] (Abnormal) Urine, Clean Catch Final result Component Value Urine Culture Normal urogenital krys present >100,000 CFU/mL Escherichia coli Abnormal This phenotype is suggestive of an ESBL-producing organism. Treatment with beta-lactam antibiotics other than carbapenems may not be effective. >100,000 CFU/mL Enterococcus faecalis Abnormal 02/21/2024 1135 02/21/2024 1628 COVID-19, Flu A/B, and RSV Combo [[id number]] Swab from Nasopharynx Final result Component Value SARS-CoV-2 Not Detected Respiratory Syncytial Virus Not Detected Influenza A Not Detected Influenza B Not Detected 02/21/2024 1124 02/24/2024 0948 Blood culture Site #1 - Suspected Infection [[id number]] (Abnormal) Blood, Venous Final result Component Value Blood Culture Escherichia coli Panic This phenotype is suggestive of an ESBL-producing organism. Treatment with beta-lactam antibiotics other than carbapenems may not be effective. This is an edited result. Previous organism was Gram-negative bacilli on 02/22/2024 at 0622 EDT. 02/21/2024 1124 02/22/2024 0622 Blood Culture Identification - Anaerobic [[id number]] (Abnormal) Blood, Venous Final result Component Value Escherichia coli Detected Abnormal CTX-M (ESBL gene) Detected Abnormal Lines: Rt arm PICC Radiography/Echo/Other: Procedure Component Value Units Date/Time XR chest 1 view [[id number]] Collected: 03/05/242023 Order Status: Completed Updated: 03/05/242025 Narrative: [facility] 1955 [id number] Exam Date/Time: 03/05/2024 20:11 Procedure: XR CHEST [...] time stamp for accounting for open encounter. [facility] 03-06-2024 Consult note Associated Order (s): IP CONSULT TO INFECTIOUS DISEASES Images from the original note were not included. [facility] - Infectious Diseases Attending [...] appeared non-toxic. She was recently admitted at [facility] from 02/20- 02/28/24 due to severe [...] History: Diagnosis Date CHF (congestive heart failure) ([facility]/HCC) COPD (chronic obstructive pulmonary disease) ([facility]/HCC) Diabetes mellitus ([facility]/HCC) Past Surgical History: Past [...] hours. 03/05/2024 2044 03/05/2024 2105 Urine culture [[id number]] Urine, Clean Catch In process Component Value No component results 02/25/2024 1536 02/27/2024 1045 Urine culture [[id number]] (Abnormal) Urine, Clean Catch Final result Component Value Urine Culture Normal urogenital krys present 10,000-50,000 CFU/mL Jose albicans Abnormal 02/23/2024 0439 02/28/2024 1101 Blood culture Site #2 - Assess for effectiveness of treatment [[id number]] Blood, Venous Final result Component Value Blood Culture No growth at 5 days 02/23/2024 0438 02/28/2024 1101 Blood culture Site #1 - Assess for effectiveness of treatment [[id number]] Blood, Venous Final result Component Value Blood Culture No growth at 5 days 02/21/2024 1759 02/25/2024 0824 Urine culture [[id number]] (Abnormal) Urine, Clean Catch Final result Component Value Urine Culture Normal urogenital krys present >100,000 CFU/mL Escherichia coli Abnormal This phenotype is suggestive of an ESBL-producing organism. Treatment with beta-lactam antibiotics other than carbapenems may not be effective. >100,000 CFU/mL Enterococcus faecalis Abnormal 02/21/2024 1135 02/21/2024 1628 COVID-19, Flu A/B, and RSV Combo [[id number]] Swab from Nasopharynx Final result Component Value SARS-CoV-2 Not Detected Respiratory Syncytial Virus Not Detected Influenza A Not Detected Influenza B Not Detected 02/21/2024 1124 02/24/2024 0948 Blood culture Site #1 - Suspected Infection [[id number]] (Abnormal) Blood, Venous Final result Component Value Blood Culture Escherichia coli Panic This phenotype is suggestive of an ESBL-producing organism. Treatment with beta-lactam antibiotics other than carbapenems may not be effective. This is an edited result. Previous organism was Gram-negative bacilli on 02/22/2024 at 0622 EDT. 02/21/2024 1124 02/22/2024 0622 Blood Culture Identification - Anaerobic [[id number]] (Abnormal) Blood, Venous Final result Component Value Escherichia coli Detected Abnormal CTX-M (ESBL gene) Detected Abnormal Lines: Rt arm PICC Radiography/Echo/Other: Procedure Component Value Units Date/Time XR chest 1 view [[id number]] Collected: 03/05/242023 Order Status: Completed Updated: 03/05/242025 [...] for open encounter. documented in this encounter [facility] 03-06-2024 Note Formatting of this n ote might be different from the original. Care Managment Initial Assessment Date: 03/06/2024 Patient Name: Kimberly Patel : 1955 Patient Information Source of Information: (recent assessment 02/22/24) Name/Contact Information: ALEXANDRO COTE [phone] DAUGHTER Cognition/Language: Confused at baseline Permission given to speak with patient lead generation representative/caregiver as indicated: Yes Confirmation of Payer with patient/family: Yes Payer Name: MEDICARE AND [facility] MEDICAID [place]: No Confirmation of Primary Care Physician: Confirmed PCP Name: DR. QUICK Seen in last 2 years?: Yes Primary Caregiver: Other (Comment) If assistance needed, confirmed caregiver ready, willing and able to care for patient at discharge: Yes Confirmed with: STAFF AT [facility] Living Arrangements Current Residence: ([facility]) Number of Floors 1 Number of Entry Steps: (LEVEL ENTRY) Bed/Bath Levels: Both first floor Facility: Longterm/Residental Care Facility Name: [facility] Plan to Return: Yes Lives with: Other (Comment) (ECF) Support Systems: Children, Comments (Other) (ECF STAFF) Activities of Daily Living Ambulation: Total Care Bathing/Dressing: Total Care Elimination/Continence/Toileting : Total Care Feeding: asst .set up Who Assists with Activities of Daily Living: ECF STAFF Instrumental Activities of Daily Living Prescription Coverage: Yes Pharmacy Used: [facility] STAFF Medication Management: Medication dispenser Who assists with medication securing and setup?: [facility] Transportation/Shopping: Assistance Provider Transportation/Shopping Assistance Provider Name: PAYOR PROVIDED TRANSPORT Transportation Mode: Payer provided transport service Needs Assistance with Transportation at Discharge: Yes Meal Preparation: Assistance Provider Meal Prep Assistance Provider Name: [facility] Laundry/Cleaning: Assistance Provider Laundry/Cleaning Assistance Provider Name: [facility] Finances/Bill Paying: Assistance Provider Finances/Bill Payer Assistance Provider Name: DAUGHTER Communication: Independent, Emergency Call System Types of Care Services/Equipment Utilized Care Services: Dialysis Type: NA Durable Medical Equipment: Mohamud Lift, Hospital Bed, oxygen, Patient's Goal/Discharge Plan Patient expects to be discharged to: RETURN TO [facility] Discharge Planning Actions: Continue to follow Patient's Choice Rights and [employer] and Collaborative Relationships Disclosed as Indicated for Post-Acute Care: NA Interdisciplinary Team Engagement: Social Work Referral for: Additional Information: Inpatient status from [facility] with altered mental status. Recent hospitalization for UTI and is receiving iv invanz at long term via picc line. ID consulted. Repeat blood culture in am, bs ac and hs with ss coverage, daily labs, us of right upper ext negative for DVT. Did call and speak with nurse Jenna at [facility] patient is mohamud lift at facility, is able to feed herself, takes pills in applesauce, is diabetic and ss coverage. She believes patient requires oxygen at the facility. Patient is [facility] at facility and Jenna believes has been there for about a year. Tentative discharge plan is to return to facility when medically stable. Did speak with patient's daughter Alexandro and she is agreeable with patient returning to [facility] when medically stable. . Vanessa Vu RN [facility] 03-06-2024 Note Formatting of this n ote might be different from the original. Care Managment Initial Assessment Date: 03/06/2024 Patient Name: Kimberly Patel : 1955 Patient Information Source of Information: (recent assessment 02/22/24) Name/Contact Information: ALEXANDRO COTE [phone] DAUGHTER Cognition/Language: Confused at baseline Permission given to speak with patient lead generation representative/caregiver as indicated: Yes Confirmation of Payer with patient/family: Yes Payer Name: MEDICARE AND [facility] MEDICAID : No Confirmation of Primary Care Physician: Confirmed PCP Name: DR. QUICK Seen in last 2 years?: Yes Primary Caregiver: Other (Comment) If assistance needed, confirmed caregiver ready, willing and able to care for patient at discharge: Yes Confirmed with: STAFF AT [facility] Living Arrangements Current Residence: ([facility]) Number of Floors 1 Number of Entry Steps: (LEVEL ENTRY) Bed/Bath Levels: Both first floor Facility: Longterm/Residental Care Facility Name: [facility] Plan to Return: Yes Lives with: Other (Comment) (ECF) Support Systems: Children, Comments (Other) (F STAFF) Activities of Daily Living Ambulation: Total Care Bathing/Dressing: Total Care Elimination/Continence/Toileting : Total Care Feeding: asst .set up Who Assists with Activities of Daily Living: ECF STAFF Instrumental Activities of Daily Living Prescription Coverage: Yes Pharmacy Used: [facility] STAFF Medication Management: Medication dispenser Who assists with medication securing and setup?: [facility] Transportation/Shopping: Assistance Provider Transportation/Shopping Assistance Provider [...] expects to be discharged to: RETURN TO [facility] Discharge Planning Actions: Continue to follow Patient's Choice Rights and [employer] and Collaborative Relationships Disclosed as Indicated for Post-Acute Care: NA Interdisciplinary Team Engagement: Social Work Referral for: Additional Information: Inpatient status from [facility] with altered mental status. Recent hospitalization for UTI and is receiving iv invanz at long term via picc line. ID consulted. Repeat blood culture in am, bs ac and hs with ss coverage, daily labs, us of right upper ext negative for DVT. Anny call and speak with nurse Jenna at [facility] patient is mohamud lift at facility, is able to feed herself, takes pills in applesauce, is diabetic and ss coverage. She believes patient requires oxygen at the facility. Patient is [facility] at facility and Jenna believes has been there for about a year. Tentative discharge plan is to return to facility when medically stable. Did speak with patient's daughter Alexandro and she is agreeable with patient returning to [facility] when medically stable. . Vanessa Vu RN [facility] 03-06-2024 Note Formatting of this n ote might be different from the original. Tasked NEWSPAPER VENDOR to place referral in careport to return to [facility] under ICF level of care. . [facility] 03-06-2024 Note Formatting of this n ote might be different from the original. Tasked NEWSPAPER VENDOR to place referral in careport to return to [facility] under ICF level of care. . [facility] 03-06-2024 Note Tasked NEWSPAPER VENDOR to place referral in careport to return to [facility] under ICF level of care. . [facility] 03-06-2024 Note Hospitalist Progress Note 03/06/2024 [phone]: Please page sd ([phone]) for patient care issues. [phone]: Please page [facility] Hospitalist for any issues. Subjective: Admit Date: 03/05/2024 PCP: Lucy Quick Room#: [id number] A Interval History: No overnight issues. Denies [...] History: Diagnosis Date CHF (congestive heart failure) ([facility]) COPD (chronic obstructive pulmonary disease) ([facility]) Diabetes mellitus ([facility]) LABS: CBC: Recent Labs 03/05/242029 WBC 8.7 [...] Alexandro Cote Mobile Relation: Daughter Preferred language: Iraqi Welfare Aide needed? No Carmen Talamantes DO Division of Hospitalist Medicine Inpatient Medical Services/[facility] PAGER: [facility] 03-06-2024 History and physical note Images from the original note were not included. History and Physical [facility] Kimberly Patel : 1955 AGE 68 [...] PRESENT) HPI: She was sent over from community health, for altered mental status Report given by [facility] was concerned that she was hallucinating at [...] of Systems: She denies almost all symptoms. prison reports she was confused and possibly hallucinating [...] History: Diagnosis Date CHF (congestive heart failure) ([facility]/HCC) COPD (chronic obstructive pulmonary disease) (CMS/HCC) Diabetes [...] QT Interval 338 QTC Interval 448 P Keasbey 7 QRS Keasbey -44 T Wave Keasbey 79 RI Interval 159 Impression Sinus tachycardia with irregular rate Inferior infarct, old Anterior infarct, old Compared to ECG 04/30/22 Irregular rate now noted, likely PAC Electronically Signed On 02-22-2024 00:36:22 EDT by Keven Cano Assessment/Plan and Medical Decision Making 68-year-old sent over from [facility] with altered mental status and malfunctioning PICC [...] pharmacologic and mechanical contraindicated 03/06/2024 Kimberly Patel [id number] Any scheduled follow up appointments No future appointments. Extended Emergency Contact Information Primary Emergency Contact: Alexandro Cote Mobile Relation: Daughter Preferred language: Iraqi Welfare Aide needed? No Portions of this note may be electronically transcribed. Please forward a copy of this H&P to the primary care physician. [facility] 03-06-2024 History and physical note Images from the original note were not included. History and Physical [facility] Kimberly Patel : 1955 AGE 68 [...] PRESENT) HPI: She was sent over from community health, for altered mental status Report given by [facility] was concerned that she was hallucinating at [...] of Systems: She denies almost all symptoms. prison reports she was confused and possibly hallucinating [...] History: Diagnosis Date CHF (congestive heart failure) ([facility]) COPD (chronic obstructive pulmonary disease) ([facility]) Diabetes mellitus ([facility]) Recent uti Past Surgical History: Procedure Laterality [...] QT Interval 338 QTC Interval 448 P Keasbey 7 QRS Keasbey -44 T Wave Keasbey 79 RI Interval 159 Impression Sinus tachycardia with irregular rate Inferior infarct, old Anterior infarct, old Compared to ECG 04/30/22 Irregular rate now noted, likely PAC Electronically Signed On 02-22-2024 00:36:22 EDT by Keven Cano Assessment/Plan and Medical Decision Making 68-year-old sent over from [facility] with altered mental status and malfunctioning PICC [...] pharmacologic and mechanical contraindicated 03/06/2024 Kimberly Patel [id number] Any scheduled follow up appointments No future appointments. Extended Emergency Contact Information Primary Emergency Contact: Alexandro Cote Mobile Relation: Daughter Preferred language: Iraqi Welfare Aide needed? No Portions of this note may be electronically transcribed. Please forward a copy of this H&P to the primary care physician. documented in this encounter [facility] 03-06-2024 Note History and Physical [facility] Kimberly CARMEN: 1955 AGE 68 y.o. [...] PRESENT) HPI: She was sent over from community health, for altered mental status Report given by [facility] was concerned that she was hallucinating at [...] of Systems: She denies almost all symptoms. prison reports she was confused and possibly hallucinating [...] History: Diagnosis Date CHF (congestive heart failure) ([facility]) COPD (chronic obstructive pulmonary disease) ([facility]) Diabetes mellitus ([facility]) Recent uti Past Surgical History: Procedure Laterality [...] senna-docusate sodium (Sen (more content not included)... [facility] 03-05-2024 Emergency department Note CHARGE LPN called for USIV and labs Marjorie Stephens RN 03/05/241941 [facility] 03-05-2024 Emergency department Note CHARGE LPN called for USIV and labs Marjorie Stephesn RN 03/05/241941 EMERGENCY DEPARTMENT ENCOUNTER Pt Name: [...] History: Diagnosis Date CHF (congestive heart failure) ([facility]) COPD (chronic obstructive pulmonary disease) ([facility]) Diabetes mellitus ([facility]) SURGICAL HISTORY Past Surgical History: Procedure Laterality [...] (fourteen) days. ERGOCALCIFEROL (VITAMIN D-2) 1.25 MG (56238 UT) CAPSULE Take 1.25 mg by mouth [...] Culture. Procedure Abnormality Status --------- ------ Complete Urinalysis[[id number]] Abnormal Final result Please view results for [...] MD 03/05/242299 Pt arrived via EMS from [facility] for complaints of increased confusion and hallucinations at dinner. When EMS arrived, pt was A&O x4. During transport, pt had intermittent confusion in EMS. Pt was seen a week ago in [facility] and was being treated for UTI, which she has completed 1st ATB and is on 2nd one. Pt has PICC line in RAC, but entire arm is painful to touch. documented in this encounter [facility] 03-05-2024 Emergency department Triage note Pt arrived via EMS from [facility] for complaints of increased confusion and hallucinations at dinner. When EMS arrived, pt was A&O x4. During transport, pt had intermittent confusion in EMS. Pt was seen a week ago in [facility] and was being treated for UTI, which she has completed 1st ATB and is on 2nd one. Pt has PICC line in RAC, but entire arm is painful to touch. [facility] 03-05-2024 Physician Emergency department Note EMERGENCY [...] (fourteen) days. ERGOCALCIFEROL (VITAMIN D-2) 1.25 MG (54746 UT) CAPSULE Take 1.25 mg by mouth [...] Culture. Procedure Abnormality Status --------- ------ Complete Urinalysis[[id number]] Abnormal Final result Please view results for [...] Medicine Provider Janie Cortez MD 03/05/24 2300 [facility] 02-28-2024 Note Hospitalist Discharg e Summary [...] History: Diagnosis Date CHF (congestive heart failure) ([facility]) COPD (chronic obstructive pulmonary disease) ([facility]) Diabetes mellitus ([facility]) Procedures: - Right-sided PICC placement (02/27/24) Hospital [...] Disposition: Patient discharged in stable condition to [facility] . Greater than 31 minutes spent discharging [...] MG tablet Common (more content not included)... [facility] 02-28-2024 Miscellaneous Notes Dc back to [facility] this evening at 6:00. [facility] with dc time. Discussed dc time with patients daughter Alexandro. She did have a question about patients iron and a chat message was sent to Dr. Mendoza. Ambulance form completed. Discharge med list transmitted to return back [facility] per [facility] request. Images from the original note were not included. Care Management Progress Note Discharge order placed. ANN completed. NEWSPAPER VENDOR tasked to send discharge paperwork & OPAT to [facility]. RETAIL FIELD SUPERVISOR notified to set up transport. SNF notified of discharge. Discharge Milestones and Delays Expected Date/Time: 02/28/2024 Afternoon Disposition: Penitentiary Facility Transport status: No current request Discharge Milestones Place discharge order Complete med reconciliation Case mgmt discharge readiness Clinical Stability Diagnsotic Workup Expected Discharge History Expected Date/Time Set By Reviewed At 02/28/2024 Afternoon Cheko Mendoza MD 02/28/2024 1:56 PM 02/24 Need opat and confirmation from [facility] they take take IV Invanze. Patient is a senior care bed hold. 02/29/2024 GEORGI Redding 02/28/2024 9:39 AM 02/27/2024 GEORGI Davis 02/26/2024 10:10 AM 02/26/2024 Sejal Thomas RN 02/25/2024 4:02 PM 02/24/2024 Janie Finch MD 02/21/2024 9:39 PM 02/24/2024 Janie Finhc MD 02/21/2024 6:09 PM Length of Stay (Days): 7 GMLOS: 5.1 Sent ABX order to return back to [facility] via [facility] per TCC request. Await review and response regarding ability to accept. TCC notified. Images from the original note were not included. Care Management Progress Note Medical record reviewed & report received from RN in AM rounds.Pt admitted due to sepsis. ID following recommending IV antibiotic through 03/08. Opat form in chart Geriatrics, ID and wound care following. [facility] can accommodate Invanz infusions. Pt is senior care at [facility] & does not need insurance approval to return. PICC placed today. Awaiting attending rounds for decision on discharge today. Discharge Milestones and Delays Expected Date/Time: 02/27/[address] discharge order Complete med reconciliation Case mgmt discharge readiness Clinical Stability Diagnsotic Workup Expected Discharge History Expected Date/Time Set By Reviewed At 02/27/2024 GEORGI Davis 02/26/2024 10:10 AM 02/24 Need opat and confirmation from [facility] they take take IV Invanze. Patient is a senior care bed hold. 02/26/2024 Sejal Thomas RN 02/25/2024 4:02 PM 02/24/2024 Janie Finch MD 02/21/2024 9:39 PM 02/24/2024 Janie Finch MD 02/21/2024 6:09 PM Length of Stay (Days): 6 GMLOS: 5.1 Referral placed to return back to [facility] via [facility] per TCC request. Await review and response regarding ability to accept. TCC notified. Images from the original note were not included. Care Management Progress Note Chart reviewed. Patient continues on 2 east for treatment of confusion and altered mental status. Patient has severe sepsis and awaiting improvement in GFR before discharge. Regular diet. 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 Geriatrics, ID and wound care following. Patient from [facility] senior care. Sent [employer] chat message today to facility needing confirmation if they can accept IV Invanz -awaiting final response. Patient is total care and bed bound at facility. Will need picc line once blood cultures are final. Uses mohamud lift at facility. DC plan: return to [facility], when medically ready. NEWSPAPER VENDOR tasked to send remaining updates to the facility. Messaged ID SETH Chiu Signs requesting opat when ready. Discharge Milestones and Delays Expected Date/Time: 02/26/[address] discharge order Complete med reconciliation Case mgmt discharge readiness Clinical Stability Diagnsotic Workup Expected Discharge History Expected Date/Time Set By Reviewed At 02/26/2024 Sejal Thomas RN 02/25/2024 4:02 PM 02/24 Need opat and confirmation from [facility] they take take IV Invanze. Patient is a senior care bed hold. 02/24/2024 Janie Finch MD 02/21/2024 [...] this AM. Mental status improved. Discharge Plan: [facility] ECF Discharge Barriers: clinical stability Chart reviewed. Per Geriatrics consult, plan is to follow up Sunday. IM note from 02/21 anticipates discharge on 02/24. Messaged bedside RN to request update if discharge orders are placed. TCC will continue to follow. Weekend dc form ( ambulance form) completed and placed on patients chart in the event she is ready for dc back to [facility] this . Referral placed to return back to [facility] via [facility] per TCC request. Await review and response regarding ability to accept. TCC notified. Care Managment Initial Assessment Date: 02/22/2024 Patient Name: Kimberly Patel : 1955 Patient Information Source of Information: Patient, Patient Cathode Builder Name/Contact Information: Alexandro Cote, DTR [phone] Cognition/Language: WFL - Within Functional Limits Permission given to speak with patient lead generation representative/caregiver as indicated: Yes Confirmation of Payer with patient/family: Yes Payer Name: Medicare A/B and [facility] [place]: No Confirmation of Primary Care Physician: Confirmed PCP Name: Lucy Quick Seen in last 2 years?: Yes Primary Caregiver: Self If assistance needed, confirmed caregiver ready, willing and able to care for patient at discharge: Confirmed with: Living Arrangements Current Residence: Number of Floors Number of Entry Steps: Bed/Bath Levels: Facility: Longterm/[facility]idental Care Facility Name: [facility] Plan to Return: Lives with: Other (Comment) (Facility staff) Support Systems: Children Activities of Daily Living Ambulation: Total Care Bathing/Dressing: Total Care Elimination/Continence/Toileting : Total Care Feeding: Total Care Who Assists with Activities of Daily Living: Nursing staff at [facility] Instrumental Activities of Daily Living Prescription Coverage: Yes Pharmacy Used: Longterm Medication Management: Transportation/Shopping: Independent (Longterm) Transportation Mode: Payer provided transport service Needs Assistance with Transportation at Discharge: Meal Preparation: Assistance Provider Meal Prep Assistance Provider Name: Longterm Laundry/Cleaning: Assistance Provider Laundry/Cleaning Assistance Provider Name: Longterm Finances/Bill Paying: Assistance Provider Finances/Bill Payer Assistance Provider Name: Longterm Communication: Assistance Types of Care Services/Equipment Utilized Care Services: Dialysis Type: NA Durable Medical Equipment: Mohamud Lift Patient's Goal/Discharge Plan Patient expects to be discharged to: Return to [facility] Discharge Planning Actions: Continue to follow Patient's Choice Rights and [employer] and Collaborative Relationships Disclosed as Indicated for Post-Acute Care: NA Interdisciplinary Team Engagement: Social Work Referral for: Additional Information: Chart reviewed. Patient admitted [facility] for treatment of confusion and altered mental status. New UTI. CHF, DM. On IV Rocephin. Regular diet. 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 Geriatrics. Met with patient at bedside today. Explained role. Patient reports she is tired and directs me to speak with her daughter. Spoke with Alexandro Cote over the phone, explained role. She is very pleasant. Reports patient is at [facility] and would like patient to return there on discharge once medically ready. She reports patient is a total care and bed bound at facility. Uses a mohamud lift. Will arrange transportation when ready. NEWSPAPER VENDOR tasked to begin referral; response pending. Tasked [...] barriers include antibiotics. documented in this encounter [facility] 02-28-2024 Note Care Management Prog ress Note Discharge order placed. ANN completed. NEWSPAPER VENDOR tasked to send discharge paperwork & OPAT to [facility]. RETAIL FIELD SUPERVISOR notified to set up transport. SNF notified of discharge. Discharge Milestones and Delays Expected Date/Time: 02/28/2024 Afternoon Disposition: Penitentiary Facility Transport status: No current request Discharge Milestones Place discharge order Complete med reconciliation Case mgmt discharge readiness Clinical Stability Diagnsotic Workup Expected Discharge History Expected Date/Time Set By Reviewed At 02/28/2024 Afternoon Cheko Mendoza MD 02/28/2024 1:56 PM 02/24 Need opat and confirmation from [facility] they take take IV Invanze. Patient is a senior care bed hold. 02/29/2024 Ann Decker, RETAIL FIELD SUPERVISOR 02/28/2024 9:39 AM 02/27/2024 Nuno Fernandez, GEORGI 02/26/2024 10:10 AM 02/26/2024 Sejal Thomas RN 02/25/2024 4:02 PM 02/24/2024 Janie Finch MD 02/21/2024 9:39 PM 02/24/2024 Janie Finch MD 02/21/2024 6:09 PM Length of Stay (Days): 7 GMLOS: 5.1 [facility] 02-28-2024 Hospital Discharg e instructions Cheko Mendoza [...] Alexandro Cote Mobile Relation: Daughter Preferred language: Iraqi Welfare Aide needed? No Past Surgical History: Past Surgical History: Procedure Laterality Date CHOLECYSTECTOMY COLONOSCOPY throat biopsy Immunization History: There is no immunization history on file for this patient. Active Problems: Medical Problems Problem List * (Principal) Sphenoid sinusitis, unspecified chronicity Bullous pemphigoid Acute on chronic diastolic congestive heart failure (HCC) Bipolar disorder, most recent episode depressed ([facility]/HCC) ([facility]) UTI (urinary tract infection) Physical debility (Chronic) Other hyperlipidemia CAD (coronary artery disease) Primary hypertension Neuropathy Bacteremia Acute kidney injury superimposed on CKD ([facility]) ([facility]) Type 2 diabetes mellitus with diabetic polyneuropathy, [...] - site: upper arm right, condition {iv condition:544310::patent,no redness}, insertion date: 02/27/2024 Nursing Mobility/ADLs: Walking Total assistance Transfer Total assistance Bathing Total assistance Dressing Total assistance Toileting Total assistance Feeding Independent Log Chain Feeder Independent Med Delivery no Wound Care Documentation and Therapy: Wound/Incision 02/21/24 Pressure Injury Buttock Left (Active) Site Assessment [place];Red 02/27/242029 [place] None 02/26/24 0800 Drainage Amount [...] that are sent with patient): {ANN Patient Belongings:13382} RN SIGNATURE: MANAGEMENT/SOCIAL WORK SECTION Inpatient Status Date: Readmission Risk Assessment Score: @READMISSIONRISKDETAILS@ Discharging to Facility/ Agency Name: Name: [facility] Address: [address] [place] [id number] Dialysis Facility (if applicable) Name: Address: Dialysis Schedule: Phone: Fax: Business Management Manager/Framing Inspector signature: ICIAN SECTION Prognosis: good Condition at [...] the diagnosis listed and that she requires penitentiary facility for less than 30 days. Update Admission H&P: No change in H&P PHYSICIAN SIGNATURE: The following attachments cannot be sent through Care Everywhere.Fever, Adult ED (Iraqi)documented in this encounter [facility] 02-28-2024 History of Presen t illness Narrative Pt refused to allow OUTSOLE SKIVER to obtain Accucheck glucose level. Nurse used am BMP glucose level of 120 for am coverage. Nurse advised pt that for lunch and dinner pt will need to have bgl levels checked prior to eating. Pt agreeable. [facility] Geriatric Medicine Inpatient Consult Service Admission [...] change in mental status. She resides at [facility]. Family reported has had several hospitalizations with similar symptoms particularly when associated UTI and bloodstream infection. Medical record shows several ED visits for change in mental status and hallucinations over past 6-9 months. History of bipolar disorder that has been under control. Reviewed all notes -PICC placed today for senior care antibiotics -dietary - no malnutrition -ID - [...] mcg, Oral, Daily, Marisa Su APRN - MANAGER PHARMACY, 1,000 mcg at 02/27/24 0917 dextrose 5 [...] % cream, , Topical, BID, Manisha Tao, BUILDING INSPECTION ENGINEER - MANAGER PHARMACY, Given at 02/27/24 0916 methenamine hippurate (Hiprex) [...] 1.267 02/22/2024 Lab Results Component Value Date [id number] 294 02/22/2024 No results found for: VITD25 [...] muscle mass loss Fluid Accumulation: Mild Extremities Wool Presser Strength: Not Performed Nutrition Assessment: chart reviewed. Severe sepsis improved. Acute metabolic encephalopathy due to UTI- improving, ESBL- E coli bacteremia. PICC line planned. ID and Geriatrics following. 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 Pt sleeping on visit -awakened easily reports good appetite tolerating meals. Discharge planning to ECF -pt reports possible discharge today Estimated Daily Nutrient Needs: Energy Requirements Based On: Kcal/kg Weight Used for Energy Requirements: [place] Weight for Energy Calculation (kg): 57 kg Total Energy Requirements (kcals/day): 1425- 1710 (25-30 kcal/kg IBW) Weight Used for Protein Requirements: [place] Weight in Kg Used for Protein Requirements: [...] lb) (07/09/2023) % Weight Change (Calculated): -6.3 [place] Body Weight (lbs) (Calculated): 125 lbs [place] Body Weight (Kg) (Calculated): 57 kg % [place] Body Weight (Calculated): 188.2 % BMI (kg/m2) [...] Continue current diet Debbie Mccoy RD Contact: *[phone] or via Secure Chat Images from the original note were not included. [facility] - Infectious Diseases Attending [...] Sensation is intact. Motor: No tremor. Coordination: Xrzuve-Wpbd-Suefwf Test normal. Psychiatric: Attention and Perception: Perception [...] hours. 02/25/2024 1536 02/25/2024 1540 Urine culture [[id number]] Urine, Clean Catch In process Component Value No component results 02/23/2024 0439 02/26/2024 1101 Blood culture Site #2 - Assess for effectiveness of treatment [[id number]] Blood, Venous Preliminary result Component Value Blood Culture No growth at 72 hours P 02/23/2024 0438 02/26/2024 1101 Blood culture Site #1 - Assess for effectiveness of treatment [[id number]] Blood, Venous Preliminary result Component Value Blood Culture No growth at 72 hours P 02/21/2024 1759 02/25/2024 0824 Urine culture [[id number]] (Abnormal) Urine, Clean Catch Final result Component Value Urine Culture Normal urogenital krys present >100,000 CFU/mL Escherichia coli Abnormal This phenotype is suggestive of an ESBL-producing organism. Treatment with beta-lactam antibiotics other than carbapenems may not be effective. >100,000 CFU/mL Enterococcus faecalis Abnormal 02/21/2024 1135 02/21/2024 1628 COVID-19, Flu A/B, and RSV Combo [[id number]] Swab from Nasopharynx Final result Component Value SARS-CoV-2 Not Detected Respiratory Syncytial Virus Not Detected Influenza A Not Detected Influenza B Not Detected 02/21/2024 1124 02/24/2024 0948 Blood culture Site #1 - Suspected Infection [[id number]] (Abnormal) Blood, Venous Final result Component Value Blood Culture Escherichia coli Panic This phenotype is suggestive of an ESBL-producing organism. Treatment with beta-lactam antibiotics other than carbapenems may not be effective. This is an edited result. Previous organism was Gram-negative bacilli on 02/22/2024 at 0622 EDT. 02/21/2024 1124 02/22/2024 0622 Blood Culture Identification - Anaerobic [[id number]] (Abnormal) Blood, Venous Final result Component Value Escherichia coli Detected Abnormal CTX-M (ESBL gene) Detected Abnormal Lines: PIV Radiography/Echo/Other: US renal complete [[id number]] Collected: 02/22/241800 Order Status: Completed Updated: 02/22/241806 [...] chest angiogram w and/or wo IV contrast [[id number]] Collected: 02/21/24 1348 Order Status: Completed Updated: [...] 1:56 PM EDT XR chest 1 view [[id number]] Collected: 02/21/24 1219 Order Status: Completed Updated: 02/21/24 1220 Narrative: [facility] 1955 [id number] Exam Date/Time: 02/21/2024 12:03 Procedure: XR CHEST [...] PM EDT CT head wo IV contrast [[id number]] Collected: 02/21/24 1153 Order Status: Completed Updated: 02/21/24 1156 Narrative: Patient Name: KIMBERLY PATEL : 1955 [id number] Exam Date/Time: 02/21/2024 11:44 Procedure: CT HEAD [...] from the original note were not included. [id number]: Please page me ([phone]) for patient care issues. : Please page [facility] Hospitalist for any issues. Subjective: Admit Date: [...] with Seroquel as needed Possible return to penitentiary facility, she refuses PT and OT Will [...] Alexandro Cote Mobile Relation: Daughter Preferred language: Iraqi Welfare Aide needed? No Advance Directive: Full Code Discharge planning: TBD Ann Reed MD Division of Hospitalist Medicine Inpatient Medical Services/[facility] Geriatric Medicine Inpatient Consult Service Admission [...] change in mental status. She resides at [facility]. Family reported has had several hospitalizations with [...] % cream, , Topical, BID, Manisha Tao, BUILDING INSPECTION ENGINEER - MANAGER PHARMACY, Given at 02/25/24912 methenamine hippurate (Hiprex) tablet [...] tablet, 1 tablet, Oral, q6h PRN, Rob aLi MD, 1 tablet at 02/25/24 1221 polyethylene [...] 1.267 02/22/2024 Lab Results Component Value Date [id number] 294 02/22/2024 No results found for: VITD25 Reviewed: allergies, previous encounters, social history, imaging, active problem lists, medications, and labs Images from the original note were not included. [phone]: Please page sd ([phone]) for patient care issues. [phone]: Please page [facility] Hospitalist for any issues. Subjective: Admit Date: [...] reviewed, continue with Seroquel [facility], she refuses PT and OT Will [...] Alexandro Cote Mobile Relation: Daughter Preferred language: Iraqi Welfare Aide needed? No Advance Directive: Full Code Discharge planning: TBD Ann Reed MD Division of Hospitalist Medicine Inpatient Medical Services/[facility] Images from the original note were not [...] History: Diagnosis Date CHF (congestive heart failure) ([facility]) COPD (chronic obstructive pulmonary disease) ([facility]) Diabetes mellitus ([facility]) LABS: CBC: Recent Labs 04/40602/23/2432102/24/24219 WBC 9.6 [...] the following mgmt was pursued: - 02/23- [place] Maker following - no dysphagia, regular solids and [...] Alexandro Cote Mobile Relation: Daughter Preferred language: Iraqi Welfare Aide needed? No Blanche Castillo MD Division of Hospitalist Medicine Acute care [facility] Images from the original note were not included. [facility] - Infectious Diseases Attending [...] History: Diagnosis Date CHF (congestive heart failure) ([facility]) COPD (chronic obstructive pulmonary disease) ([facility]) Diabetes mellitus ([facility]) LABS: CBC: Recent Labs 02/21/24 11202/22/24 04002/23/24 [...] need Endocrinology evaluation, ID and Geriatrics following, PT/OT/COMMISSIONED FIRE OFFICER, follow up labs, continue wound care, discharge [...] Alexandro Cote Mobile Relation: Daughter Preferred language: Iraqi Welfare Aide needed? No SHMUEL TREVINO MD Division of Hospitalist Medicine [facility] Images from the original note were not included. Speech-Language Pathology SPEECH LANGUAGE PATHOLOGY [facility] Bedside Swallow Evaluation Patient Name: Kimberly Patel Evaluation Date: 02/23/2024 Date of : 1955 Admission Date: 02/21/2024 10:26 AM Age: 68 y.o. [facility] IMPRESSION: No s/s oropharyngeal dysphagia. No overt clinical s/s pulmonary compromise with PO. RECOMMENDATION: Recommend Regular solids and Thin liquids and meds as tolerated and the following precautions: - Small bites/sips - Alternate solid and liquids No skilled acute COMMISSIONED FIRE OFFICER indicated at this time. Please reconsult should changes occur. Subjective Patient resting in bed - requires max encouragement to participate in clinical bedside swallow evaluation. Minimal verbal output during evaluation. Dysphagia History: No history of COMMISSIONED FIRE OFFICER services in EMR with retrospective chart review Baseline Diet: Per long term information - pt current intakes regular diet [...] History: Diagnosis Date CHF (congestive heart failure) ([facility]) COPD (chronic obstructive pulmonary disease) ([facility]) Diabetes mellitus ([facility]) Past Surgical History: Past Surgical History: Procedure Laterality Date CHOLECYSTECTOMY COLONOSCOPY throat biopsy Admission Diagnosis: Patient Active Problem List Diagnosis Date Noted Bipolar disorder, most recent episode depressed ([facility]) ([facility]) 02/22/2024 Sphenoid sinusitis, unspecified chronicity 02/21/2024 Bullous pemphigoid 11/17/2022 Acute on chronic diastolic congestive heart failure ([facility]) 08/22/2022 Physical debility 10/12/2021 Other hyperlipidemia 10/12/2021 CAD (coronary artery disease) 10/12/2021 Primary hypertension 10/12/2021 Neuropathy 10/12/2021 Bacteremia 10/12/2021 Acute kidney injury superimposed on CKD ([facility]) ([facility]) 10/12/2021 Type 2 diabetes mellitus with diabetic polyneuropathy, with long-term current use of insulin ([facility]) 10/12/2021 History of Present Illness: Kimberly Patel [...] to sleep Encounter Problems Encounter Problems (Active) COMMISSIONED FIRE OFFICER [facility] Participate in Bedside swallow evaluation Start: 02/22/24 Expected End: 02/25/24 Therapy Time COMMISSIONED FIRE OFFICER Individual Minutes Time In: 0745 Time Out: 0801 Minutes: 16 Nuno Eastman MA, [facility]-COMMISSIONED FIRE OFFICER Placed patient on P500 Specialty Bed Nutrition [...] Unable to assess Fluid Accumulation: Mild Extremities Wool Presser Strength: Not Performed Nutrition Assessment: 68 year old woman with PMHx: CAD, HLD, HTN, neuropathy, DMII(A1C=7.0% on 02/22/24). She presents to [facility] from SNF with AMS and reported [...] to support patient. Refused to work with COMMISSIONED FIRE OFFICER, at time of attempted assessment, noted maybe one bite taken from breakfast tray, otherwise tray untouched. Patient declined to participate in RDN assessment, stated she wanted to be left alone and sleep . Bed scale weight obtained: 106.7 kg or 235.2#. Estimated Daily Nutrient Needs: Energy Requirements Based On: Kcal/kg Weight Used for Energy Requirements: [place] Weight for Energy Calculation (kg): 57 kg Total Energy Requirements (kcals/day): 1425- 1710 (25-30 kcal/kg IBW) Weight Used for Protein Requirements: Weight in Kg Used for Protein Requirements: Estimated Total Protein (g/day): 57-68 (1.0-1.2 g protein/kg IBW) Estimated Daily Total Fluid (ml/day): per MD Nutrition Related Findings: Edward score=13. +1 BLE edema noted. Meds: aspirin, lipitor, PPI, rocephin, insulin, toprol. Labs reviewed. Refused COMMISSIONED FIRE OFFICER this morning. Wound Type: Pressure Injury, Wound [...] lb) (07/09/2023) % Weight Change (Calculated): -6.3 [place] Body Weight (lbs) (Calculated): 125 lbs [place] Body Weight (Kg) (Calculated): 57 kg % [place] Body Weight (Calculated): 188.2 % BMI (kg/m2) [...] to determine Odalys Godinez RDN, LDN, Contact: *[phone] Images from the original note were not included. OCCUPATIONAL THERAPY [facility]'s Name/MRN: Kimberly Patel ([id number]) Date: 02/22/2024 Chart reviewed. Spoke with T[facility], she reports pt from SNF, is bed bound at baseline, [place], and is total care. Will discharge from caseload, pt dependent Zee Gresham OT Images from the original note were not included. [phone]: Please page me ([phone]) for patient care issues. [phone]: Please page [facility] Hospitalist for any issues. Subjective: Admit Date: [...] the following -clinical improvement, clearance of bacteremia, senior science consultant recommendations, workup Total time spent (which include face to face and non face to face encounters) : 52 minutes Toxic drug monitoring/narrow therapeutic index drug monitoring : # Drug name : # Route administered : # Method of monitoring : Extended Emergency Contact Information Primary Emergency Contact: Alexandro Cote Mobile Relation: Daughter Preferred language: Iraqi Welfare Aide needed? No Advance Directive: Full Code Discharge planning: TBD CLARE DEL CID MD Division of Hospitalist Medicine Inpatient Medical Services/[facility] Images from the original note were not included. PHYSICAL THERAPY [facility] Name/MRN: Kimberly Patel ([id number]) Date: 02/22/2024 Chart reviewed. Spoke with [facility], she reports pt from SNF, is bed bound at baseline, [place], and is total care. Will discharge from caseload, pt dependent Moe Mcelroy PT Images from the original note were not included. OCCUPATIONAL THERAPY [facility] Name/MRN: Kimberly Patel ([id number]) Date: 02/22/2024 Chart reviewed. Introduced self and role, pt declines therapy adamantly. Will re-attempt as schedule permits Zee Gresham OT Images from the original note were not included. PHYSICAL THERAPY [facility] Name/MRN: Kimberly Patel ([id number]) Date: 02/22/2024 Chart reviewed. Introduced self and [...] follow as appropriate. documented in this encounter [facility] 02-27-2024 Note Care Management Prog ress Note Medical record reviewed & report received from RN in AM rounds.Pt admitted due to sepsis. ID following recommending IV antibiotic through 03/08. Opat form in chart Geriatrics, ID and wound care following. [facility] can accommodate Invanz infusions. 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 PICC placed today. Awaiting attending rounds for decision on discharge today. Discharge Milestones and Delays Expected Date/Time: 02/27/[address] discharge order Complete med reconciliation Case mgmt discharge readiness Clinical Stability Diagnsotic Workup Expected Discharge History Expected Date/Time Set By Reviewed At 02/27/2024 GEORGI Davis 02/26/2024 10:10 AM 02/24 Need opat and confirmation from [facility] they take take IV Invanze. Patient is a terminal gauger supervisor bed hold. 02/26/2024 Sejal Thomas RN 02/25/2024 4:02 PM 02/24/2024 Janie Finch MD 02/21/2024 9:39 PM 02/24/2024 Janie Finch MD 02/21/2024 6:09 PM Length of Stay (Days): 6 GMLOS: 5.1 [facility] 02-26-2024 Note [facility] - Infectious Diseases Attending [...] Sensation is intact. Motor: No tremor. Coordination: Nljgno-Unqk-Blueyp Test normal. Psychiatric: Attention and Perception: Perception [...] hours. 02/25/2024 1536 02/25/2024 1540 Urine culture [[id number]] Urine, Clean Catch In process Component Value No component results 02/23/2024 0439 02/26/2024 1101 Blood culture Site #2 - Assess for effectiveness of treatment [[id number]] Blood, Venous Preliminary result Component Value Blood Culture No growth at 72 hours P 02/23/2024 0438 02/26/2024 1101 Blood culture Site #1 - Assess for effectiveness of treatment [[id number]] Blood, Venous Preliminary result Component Value Blood Culture No growth at 72 hours P 02/21/2024 1759 02/25/2024 0824 Urine culture [[id number]] (Abnormal) Urine, Clean Catch Final result Component Value Urine Culture Normal urogenital krys present >100,000 CFU/mL Escherichia coli Abnormal This phenotype is suggestive of an ESBL-producing organism. Treatment with beta-lactam antibiotics other than carbapenems may not be effective. >100,000 CFU/mL Enterococcus faecalis Abnormal 02/21/2024 1135 02/21/2024 1628 COVID-19, Flu A/B, and RSV Combo [[id number]] Swab from Nasopharynx Final result Component Value SARS-CoV-2 Not Detected Respiratory Syncytial Virus Not Detected Influenza A Not Detected Influenza B Not Detected 02/21/2024 1124 02/24/2024 0948 Blood culture Site #1 - Suspected Infection [[id number]] (Abnormal) Blood, Venous Final result Component Value Blood Culture Escherichia coli Panic This phenotype is suggestive of an ESBL-producing organism. Treatment with beta-lactam antibiotics other than carbapenems may not be effective. This is an edited result. Previous organism was Gram-negative bacilli on 02/22/2024 at 0622 EDT. 02/21/2024 1124 02/22/2024 0622 Blood Culture Identification - Anaerobic [[id number]] (Abnormal) Blood, Venous Final result Component Value Escherichia coli Detected Abnormal CTX-M (ESBL gene) Detected Abnormal Lines: PIV Radiography/Echo/Other: US renal complete [[id number]] Collected: 02/22/241800 Order Status: Completed Updated: 02/22/241806 Narrative: Patient Name: KIMBERLY PATEL : 1955 Exam Date/Time: 02/22/2024 17:23 Procedure: US RENAL COMPLETE Ordering Provider: DEL CID DEEPTHI Reason For Exam: r/o obstruction Examination: Renal ultrasound Clinic (more content not included)... [facility] 02-25-2024 Note Referral placed to kris kimbrough back to [facility] via [facility] per [facility] request. Await review and response regarding ability to accept. [facility] notified. [facility] 02-25-2024 Note Care Management Prog ress Note Chart reviewed. Patient continues on for treatment of confusion and altered mental status. Patient has severe sepsis and awaiting improvement in GFR before discharge. Regular diet. 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 Geriatrics, ID and wound care following. 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 Sent [employer] chat message today to facility needing confirmation if they can accept IV Invanz -awaiting final response. Patient is total care and bed bound at facility. Will need picc line once blood cultures are final. Uses mohamud lift at facility. DC plan: return to [facility], when medically ready. NEWSPAPER VENDOR tasked to send remaining updates to the facility. Messaged ID SETH Wagoner. Signs requesting opat when ready. Discharge Milestones and Delays Expected Date/Time: 02/26/[address] discharge order Complete med reconciliation Case mgmt discharge readiness Clinical Stability Diagnsotic Workup Expected Discharge History Expected Date/Time Set By Reviewed At 02/26/2024 Sejal Thomas RN 02/25/2024 4:02 PM 02/24 Need opat and confirmation from [facility] they take take IV Invanze. Patient is a senior care bed hold. 02/24/2024 Janie Finch MD 02/21/2024 9:39 PM 02/24/2024 Janie Finch MD 02/21/2024 6:09 PM Length of Stay (Days): 4 GMLOS: 5.1 [facility] 02-24-2024 Note Hospitalist Progress Note 02/24/2024 Subjective: [...] History: Diagnosis Date CHF (congestive heart failure) ([facility]) COPD (chronic obstructive pulmonary disease) (CMS/HCC) Diabetes mellitus ([facility]) LABS: CBC: Recent Labs 02/22/2440602/23/2432102/24/24219 WBC 9.6 [...] and 1x CAT3) (more content not included)... [facility] 02-24-2024 Note [facility] - Infectious Diseases Attending [...] and instructing the patient on self care. [facility] 04-27-2024 Note Hospitalist Progress Note 02/23/2024 Subjective: [...] History: Diagnosis Date CHF (congestive heart failure) ([facility]) COPD (chronic obstructive pulmonary disease) ([facility]) Diabetes mellitus ([facility]) LABS: CBC: Recent Labs 02/21/24 1124 02/22/24 [...] need Endocrinology evaluation, ID and Geriatrics following, PT/OT/COMMISSIONED FIRE OFFICER, follow up labs, continue wound care, discharge [...] : 48 minute (more content not included)... [facility] 02-22-2024 Consult note Associated Order (s): IP WOUND CARE NURSE CONSULT TO EVAL Images from the original note were not included. [facility] Wound Care CONSULT Note Kimberly Patel AGE: 68 y.o. GENDER: female : 1955 Subjective: HISTORY of PRESENT ILLNESS HPI Kimbrely Patel is a 68 y.o. female with [...] moisture management. Low air loss mattress at [facility] .patient denies being able to make independent body position changes. Does not have good appetite. No cough. Can not lay flat HOB has to be up more than 30 degrees. PAST MEDICAL HISTORY Active Ambulatory Problems Diagnosis Date Noted Physical debility 10/12/2021 Other hyperlipidemia 10/12/2021 CAD (coronary artery disease) 10/12/2021 Primary hypertension 10/12/2021 Neuropathy 10/12/2021 Bacteremia 10/12/2021 Acute kidney injury superimposed on CKD ([facility]) ([facility]) 10/12/2021 Type 2 diabetes mellitus with diabetic polyneuropathy, with long-term current use of insulin ([facility]) 10/12/2021 Bullous pemphigoid 11/17/2022 Acute on chronic diastolic congestive heart failure ([facility]) 08/22/2022 Bipolar disorder, most recent episode depressed ([facility] ([facility]) 02/22/2024 Resolved Ambulatory Problems Diagnosis Date Noted No Resolved Ambulatory Problems Past Medical History: Diagnosis Date CHF (congestive heart failure) ([facility]) COPD (chronic obstructive pulmonary disease) ([facility]) Diabetes mellitus ([facility]) PAST SURGICAL HISTORY Past Surgical History: Procedure [...] (fourteen) days. ergocalciferol (Vitamin D-2) 1.25 MG (95211 UT) capsule Take 1.25 mg by mouth [...] Care to follow Please follow up at [facility] wound care [place] after hospital discharge. Thank you for the [...] from the original note were not included. [facility] - Infectious Diseases Attending Consult Note [...] History: Diagnosis Date CHF (congestive heart failure) ([facility]) COPD (chronic obstructive pulmonary disease) ([facility]) Diabetes mellitus ([facility]) Past Surgical History: Past Surgical History: Procedure [...] mg 0.4 mg IntraVENous q5 min PRN hSmuel Trevino MD oxyCODONE-acetaminophen (Percocet) 5-325 MG per [...] Sensation is intact. Motor: No tremor. Coordination: Wtcbwd-Oiyf-Veiuvx Test normal. Psychiatric: Attention and Perception: Perception [...] hours. 02/21/2024 1759 02/21/2024 1834 Urine culture [[id number]] Urine, Clean Catch In process Component Value No component results 02/21/2024 1135 02/21/2024 1628 COVID-19, Flu A/B, and RSV Combo [[id number]] Swab from Nasopharynx Final result Component Value SARS-CoV-2 Not Detected Respiratory Syncytial Virus Not Detected Influenza A Not Detected Influenza B Not Detected 02/21/2024 1124 02/22/2024 0622 Blood culture Site #1 - Suspected Infection [[id number]] (Abnormal) Blood, Venous Preliminary result Component Value Blood Culture Gram-negative bacilli Panic P 02/21/2024 1124 02/22/2024 0622 Blood Culture Identification - Anaerobic [[id number]] (Abnormal) Blood, Venous Final result Component Value Escherichia coli Detected Abnormal CTX-M (ESBL gene) Detected Abnormal Lines: PIV Radiography/Echo/Other: Procedure Component Value Units Date/Time US renal complete [[id number]] Resulted: 02/22/24 1212 Order Status: Sent Updated: 02/22/24 1237 CTA chest angiogram w and/or wo IV contrast [[id number]] Collected: 02/21/24 1348 Order Status: Completed Updated: 02/21/24 1357 Narrative: [facility] 1955 [id number] Exam Date/Time: 02/21/2024 13:41 Procedure: CT CHEST [...] 1:56 PM EDT XR chest 1 view [[id number]] Collected: 02/21/24 1219 Order Status: Completed Updated: 02/21/24 1220 Narrative: Patient Name: KIMBERLY PATEL : 1955 [id number] Exam Date/Time: 02/21/2024 12:03 Procedure: XR CHEST [...] PM EDT CT head wo IV contrast [[id number]] Collected: 02/21/24 1153 Order Status: Completed Updated: 02/21/24 1156 Narrative: Patient Name: KIMBERLY PATEL : 1955 [id number] Exam Date/Time: 02/21/2024 11:44 Procedure: CT HEAD [...] encounter. Associated Order(s): IP CONSULT TO GERIATRICS [facility] Geriatric Medicine Inpatient Consult Service Admission [...] change in mental status. She resides at [facility] and hospitalized for long-term care,She has been there for over a year. Family presented and was going to discharge back to facility however became acutely more confused emergency room and decision was made for admission. Patient is unable to provide any additional history of her recent symptoms. Discussed with bedside chief nursing officer, they were able to change her this [...] 0 Conversation with caregiver: daughter. Alexandro Cote [phone] -states that patient experiences similar symptoms with UTI/blood stream infections -has had hallucinations with infections, but doesn't usually seem to distressing/disturbing -from mental health, at her baseline she is good - states she plays on her phone, doesn't do a lot of socializing, doesn't go down for activities, doesn't like the mohamud lift. Does return to baseline in between -at [facility] in [place] - little over a year, doing ok there -no recent medication changes -does have bullous pemphigoid, goes to [employer] and has been much better controlled [...] History: Diagnosis Date CHF (congestive heart failure) ([facility]) COPD (chronic obstructive pulmonary disease) (CMS/HCC) Diabetes [...] 02/22/24 12:31 PM documented in this encounter [facility] 02-22-2024 Note Referral placed to kris [facility]imbrough [facility] per [facility] request. Await review and response regarding ability to accept. [facility] notified. [facility] 02-21-2024 Emergency department Note This RN spoke [...] polyneuropathy, with long-term current use of insulin ([facility]) CURRENT MEDICATIONS Previous Medications No medications on [...] Sensation is intact. Motor: No tremor. Coordination: Fuoqyd-Idmf-Pvgwaq Test normal. Psychiatric: Attention and Perception: Perception [...] Abnormal Glucose 150 (*) Narrative: Performed by: [facility], [address] [place] [address] CLIA ID: [id number] POCT VENOUS BLOOD GAS UNSOLICITED RESULTS - Abnormal pH, Venous 7.363 pCO2, Venous 59.7 (*) pO2, Venous 34.8 HCO3, Venous 33.9 (*) Base Excess, Venous 4.7 (*) SO2, Venous 62.6 FIO2 Narrative: Performed by: [facility], [address] [place] [address] CLIA ID: [id number] PROTHROMBIN TIME - Normal PROTHROMBIN TIME 10.5 [...] Culture. Procedure Abnormality Status --------- ------ Complete Urinalysis[[id number]] Please view results for these tests on [...] 03:41:22 PM PATIENT REFERRED TO: Lucy Quick [address] [facility] [phone] Call in 1 day Janie Guamansonia Pavonam, DO [address] [place] [address] [facility] [address] Call in 1 day I prescribed: New [...] and treatment. Janie Finch MD 02/21/24 1811 [facility] sends patient by ambulance due to mental status change and fever of 107F. Patient was given PO Tylenol 1000mg. documented in this encounter [facility] 02-21-2024 Note Attending History an d [...] History: Diagnosis Date CHF (congestive heart failure) ([facility]) COPD (chronic obstructive pulmonary disease) ([facility]) Diabetes mellitus ([facility]) Past Surgical History: Past Surgical History: Procedure [...] follow up cx's, prn seroquel, Geriatrics evaluation, PT/OT/COMMISSIONED FIRE OFFICER, I/Os and daily weights, oxgyen, aerosols. review home meds and continue as appropriate, oxygen, discharge plannin (more content not included)... [facility] 02-21-2024 History and physical note Images from [...] History: Diagnosis Date CHF (congestive heart failure) ([facility]) COPD (chronic obstructive pulmonary disease) ([facility]) Diabetes mellitus ([facility]) Past Surgical History: Past Surgical History: Procedure [...] follow up cx's, prn seroquel, Geriatrics evaluation, PT/OT/COMMISSIONED FIRE OFFICER, I/Os and daily weights, oxgyen, aerosols. review [...] Alexandro Cote Mobile Relation: Daughter Preferred language: Iraqi Welfare Aide needed? No SHMUEL TREVINO MD Division of Hospitalist [facility] documented in this encounter [facility] 08-11-2023 Note HNO ID: [id number] Author: Note, Interface Service: ? Author Type: ? Type: Progress Notes Filed: 08/11/2023 5:09 AM Note Text: Epic Scheduled Downtime: 08/11/2023 1:00:00 AM to 08/11/2023 1:28:00 AM [facility] 05-25-2023 Miscellaneous Notes Called and left VM regarding consult documented in this encounter [facility] 05-10-2023 Miscellaneous Notes Left voicemail advising patient to have new provider to send Rx to pharmacy. DARIEL ZHONG LPN May 10, 2023 4:27 PM documented in this encounter [facility] 04-26-2023 Miscellaneous Notes Pt has new pcp. Agustin Barahona APRN.MANAGER PHARMACY Deny has new pcp Vy Meek LPN documented in this encounter [facility] 03-09-2023 Miscellaneous Notes The [facility] has reached out to the patient with no response. Therefore, this is considered a deferral of [facility] services at this time. documented in this encounter [facility] 02-22-2023 Miscellaneous Notes Patient was discharged from [facility] 01-17-23 with an order to schedule with the [facility]. The Clinic reached out by phone with no contact. A letter was mailed to the patient asking them to contact the Clinic to schedule an appointment. documented in this encounter [facility] 02-15-2023 Note HNO ID: [id number] Author: Dianna Zuniga RN Service: Nursing Author Type: Registered Nurse Type: Progress Notes Filed: 02/15/2023 4:32 PM Note Text: Report called to Yessica @ [facility]. [facility] 02-15-2023 Note [facility] 02-14-2023 Note [facility] 02-13-2023 Note [facility] 02-13-2023 Note [facility] 02-12-2023 Note [facility] 02-12-2023 Note [facility] 02-11-2023 History of Past i [...] of this encounter (statuses as of 02/22/2023) [facility] History of Past illness Narrative* [...] of this encounter (statuses as of 03/02/2023) [facility] of Past illness Narrative* [...] of this encounter (statuses as of 03/09/2023) [facility] History of Past illness Narrative* [...] of this encounter (statuses as of 04/27/2023) [facility] History of Past illness Narrative* [...] of this encounter (statuses as of 05/10/2023) [facility] History of Past illness Narrative* [...] of this encounter (statuses as of 05/25/2023) [facility]04-11-2023 [facility]04-11[facility]20[facility] History of Present illness Narrative* Saniya Coleman RN - 02/06/2023 2:01 PM EDT Spoke to social welfare administrator at [facility]. Patient is now a permanent resident under the care of facility physician Dr. Lucy Quick. [facility] chart updated to reflect this change. Saniya Coleman RN February 06, 2023 2:03 PM documented in this encounterUniversity Hospitals [facility] Center04-03-2023 [facility]04-03[facility]2023 History of Present illness Narrative* Vy Meek LPN - 01/29/2023 3:41 PM EDT ED Follow Up: Patient discharged from [facility] ED on 01/28/23. Left message for patient to call office to schedule ed follow up appointment. Vy Meek LPN documented in this encounterUniversity Hospitals Cleveland [facility] Center03-31-2023 Miscellaneous Notes* Telephone Encounter - [...] accordingly. Merissa Browne LPN documented in this encounterUniversity Hospitals Cleveland Medical Center03-22-2023 Miscellaneous Notes* Telephone Encounter - Solange Arenas RN - 01/17/2023 1:32 PM EDT Patient was discharged from [facility] on 01/16/23 with an order to schedule with the [facility] Failure [facility]. However, the patient was then immediately [facility] a [facility] facility[facility] A letter was mailed to the patient asking her to contact the Clinic upon discharge from the facility. documented in this encounterUniversity Hospitals Cleveland [facility] Center03-22-2023 [facility]03-21[facility]2023 [facility]03-20[facility]20[facility]20[facility]20[facility]-20[facility]2023 History of Present illness Narrative* Saniya Coleman RN - 01/15/2023 3:15 PM EDT [facility] Transitional Care Management (TCM) Inpatient Patient Visit/Outreach Provider Action/FYI Will be discharged back to [facility] at discharge Anticipate patient will be permanent resident Saniya Coleman RN January 15, 2023 3:18 PM Patient Admitted To [facility] on 01/12/2023 Patient admitted for CHF Contact [...] discharge. We have your contact number as [phone] , is this the best number to contact you? Yes Address: [address] [place] [address] , is this where you will be staying after discharge? No, [facility] Do you give us permission to speak to anyone else if you are unavailable to speak to us? Yes Alexandro Cote (daughter) [phone] Saniya Coleman RN January 15, 2023 3:17 PM documented in this encounterUniversity Hospitals Cleveland Medical Center03-20-2023 Miscellaneous Notes* Telephone Encounter - Kerry Parr Sec - 01/15/2023 11:18 AM EDT The patient was discharged from [facility] 10-28-22 with an order to schedule with the [facility] Failure Clinic. The Clinic reached out to the patient with no response. Therefore, this is considered a deferralof the Clinic's services at this time. documented in this encounterUniversity Hospitals Cleveland Medical Center03-19-2023 [facility]03-18-2023 [facility]03-14-2023 Miscellaneous Notes * Telephone Encounter - Val [...] Agustin Barahona -07/05/22 Virtual with Agustin Barahona-06/23/22 [facility]. Next appointment: None . Requested Prescriptions Pending Prescriptions Disp Refills pregabalin (LYRICA) 75 mg capsule [Pharmacy Med Name: Pregabalin 75mg Capsule] 60 capsule 5 Sig: Take 1 capsule by mouth twice daily Patient Phone numbers: [phone] (home) Request is for script(s) to be escript to pharmacy. Kamille Hall LPN documented in this encounterUniversity Hospitals Cleveland Medical Center03-10-2023 Miscellaneous Notes* Telephone Encounter - [...] accordingly. Sheree Kan RN documented in this encounterUniversity Hospitals Cleveland Medical Center02-26-2023 Miscellaneous Notes* Telephone Encounter - Agustin Barahona APRN.CNP - 12/24/2022 9:30 PM EST 30 tablets with 3 refills sent. Pt will need to be seen in person to continue to get refills. Agustin Barahona APRN.HEATHER documented in this encounterUniversity Hospitals Cleveland Medical Center02-21-2023 [facility]02-21-2023 Miscellaneous Notes* Telephone Encounter - Kerry Rogers - 12/19/2022 10:53 AM EST Patient was discharged from [facility] 10-28-22 with an order to schedule with the [facility] Failure Clinic. The Clinic reached out by phone with no contact. A letter was mailed to the patient asking them to contact the Clinic to schedule an appointment. documented in this encounterUniversity Hospitals Cleveland Medical Center02-09-2023 History of Present illness Narrative* [...] 07, 2022 TIME: 11:54 AM CONTACT #: [phone] documented in this encounterUniversity Hospitals Cleveland Medical Center02-07-2023 [facility]02-01-2023 Miscellaneous Notes* Telephone Encounter - Tea Riggs [...] FOR ITCHING/RASH (FOR ITCHING). Patient Phone numbers: [phone] (home) Request is for script(s) to be escript to pharmacy. Tea Riggs LPN documented in this encounterUniversity Hospitals Cleveland Medical Center01-23-2023 Miscellaneous Notes* Telephone Encounter - Kerry Rogers - 11/20/2022 9:26 AM EST Patient was discharged from [facility] 11-17-22 with an order to schedule with the [facility] Failure Clinic. However, the patient was then immediately admitted to a penitentiary facility. A letter was mailedto the patient asking them to contact the Clinic upon discharge from the facility. Kerry Parr Sec documented in this encounterUniversity Hospitals Cleveland Medical Center01-23-2023 [facility]01-23-2023 History of Present illness Narrative* Saniya Coleman RN - 11/20/2022 7:24 AM EST TRANSITION CARE MANAGEMENT (TCM) /DISCHARGE TO POST ACUTE FACILITY POST ACUTE TRANSFER SUMMARY: -Pt discharged from [facility] on 11/17/2022 -Post Acute Facility Admitted to [facility] -Admitted for: Weakness Office PCC to follow at discharge Saniya Coleman RN November 20, 2022 7:26 AM documented in this encounterUniversity Hospitals Cleveland Medical Center01-20-2023 [facility]01-20-2023 [facility]01-19-2023 [facility]01-19-2023 NoteHNO ID: [id number] Author: Lindsay Rod RN Service: Nursing Author Type: Registered Nurse Type: Nursing Progress Note Filed: 11/16/2022 4:17 AM Note Text: Patient states she does not want to be woke up during the night.[facility]01-18-2023 [facility]01-17-2023 [facility]01-17-2023 [facility]01-17-2023 Note [facility]01-16-2023 [facility]-12[facility]01[facility]12-2023 [facility]01-12-2023 Miscellaneous Notes * Telephone Encounter - Davis Loving MA - 11/09/2022 4:06 PM EST Patient advised of message. Davis Loving MA * Telephone Encounter - Agustin Barahona APRN.HEATHER - 11/09/2022 3:44 PM EST Agreeable to follow pt for home care. Agustin Barahona APRN.CNP * Telephone Encounter - Vanessa Patel - 11/09/2022 11:26 AM EST Chica from [facility] called ([phone]) stating pt is being discharged from a skilled facility and needs verbal orders. Requesting home care penitentiary, physical therapy and occupational therapy. Please advise. Vanessa Ptael documented in this encounterUniversity Hospitals Cleveland Medical Center01-12-2023 [facility]01-12-2023 History of Present illness Narrative* Agustin Barahona [...] - ERNST Provider Action/FYI: Patient discharged from [facility] on 11/08/22. Patient declines reviewing medications. States that she is not aware of needing any refills or medication changes. Patient reports that she is unable to stand and that she is very weak. Patient noted to have Pressure Injury on admission. Patient reports that this is improving however she has multiple blisters. Patient has referral for [facility] SN, PT, OT. Can an order [...] results to SN. SUMMARY: Pt discharged from [facility] on 11/08/22. Admitted for: CHF, UTI Contact made with patient: Yes Hi my name is Krupa Aparicio RN and I am calling from the [facility] on behalf of your PCP, Agustin Barahona APRN.MANAGER PHARMACY I understand you were recently in the [...] like to speak with a social work felt hat steamer to help give you support for [...] I will send your request to a material scheduler who will contact and assist you [...] possible). Krupa Aparicio RN documented in this encounterUniversity Hospitals Cleveland Medical Center01-05-2023 Miscellaneous Notes* Telephone Encounter - [...] FOR ITCHING/RASH (FOR ITCHING). Patient Phone numbers: [phone] (home) Request is for script(s) to be escript to pharmacy. Jenna Gudino MA documented in this encounterUniversity Hospitals Cleveland Medical Center01-03-2023 [facility]01-03-2023 Miscellaneous Notes* Telephone Encounter - Kerry Rogers - 10/31/2022 9:25 AM EST Patient was discharged from [facility] 10-28-22 with an order to schedule with the Heart Failure Clinic. However, the patient was then immediately admitted to a penitentiary facility. A letter was mailed to the patient asking them to contact the Clinic upon discharge from the facility. Kerry Rogers documented in this encounterUniversity Hospitals Cleveland Medical Center12-30-2022 [facility]12-30-2022 NoteHNO ID: [id number] Author: Evelia Asher RN Service: Nursing Author Type: Registered Nurse Type: Nursing Progress Note Filed: 10/27/2022 4:14 AM Note Text: Nurse attempted to draw labs. Patient refused. LIP notified. Will continue to monitor.[facility]12-29-2022 [facility]12-28-2022 [facility]12-27-2022 [facility]12-26-2022 [facility]12-25-2022 Note [facility]12-24-20[facility]12[facility]2022 [facility]12-21-2022 [facility]-20-2022 [facility]12-20-2022 [facility]12-09-2022 Miscellaneous Notes* Telephone Encounter - Tea Riggs [...] FOR ITCHING/RASH (FOR ITCHING). Patient Phone numbers: [phone] (home) Request is for script(s) to be escript to pharmacy. Tea Riggs LPN documented in this encounterUniversity Hospitals Cleveland Medical Center12-09-2022 Miscellaneous Notes* Telephone Encounter - [...] by mouth every day Patient Phone numbers: [phone] (home) Request is for script(s) to be escript to pharmacy. Jenna Gudino MA documented in this encounterUniversity Hospitals Cleveland Medical Center12-07-2022 Miscellaneous Notes* Telephone Encounter - Arelis Harper - 10/04/2022 10:11 AM EST FMLA forms completed and emailed to daughterAlexandro at [email or web address]. Called and left message on Alexandro's phone regarding above. Mgraening * Telephone Encounter - Jenna Gudino MA - 10/03/2022 5:05 PM EST Papers were placed on Arelis desk because she does those.I will forward this to Arelis. Jenna Gudino MA * Telephone Encounter - Haley Cook - 10/03/2022 3:48 PM EST PT's daughter dropped off paperwork for FMLA. Put on Draker desk. Please advise Haley Cook documented in this encounterUniversity Hospitals Cleveland Medical Center12-02-2022 [facility]12-02-2022 Instructions* Patient Instructions* Agustin Barahona APRN.CNP - 09/29/2022 8:32 AM EST 1-make apts with dermatology, urology, nephrology, cardiology and HF clinic. Keep these apts. documented in this encounterUniversity Hospitals Cleveland Medical Center12-02-2022 History of Present illness Narrative* [...] These were prescribed by Dyllan Guillaume from [facility] for treatment of her bullous rash. [...] 782.1, ICD10: R21 -Educated patient to contact [facility] in regards to treatment for this [...] polyneuropathy, with long-term current use of insulin ([facility]) - ICD9: 250.60, 357.2, V58.67, ICD10: E11.42, Z79.4 -Patient endorses that her blood sugars have been a little elevated due to being on the steroids. But she is combining that with changing her mealtime insulin around. Patient denies needing any refills in regards to her diabetes medication at this time. 5. Acute on chronic diastolic CHF (congestive heart failure) ([facility]) - ICD9: 428.33, 428.0, ICD10: I50.33 -Educated [...] failure. 6. Chronic respiratory failure with hypoxia ([facility]) - ICD9: 518.83, 799.02, ICD10: J96.11 -Patient is still on 2 L of O2 per nasal cannula at home for this. Patient is stable on this. Total Time Spent: 25 minutes Agustin Barahona APRN.HEATHER documented in this encounterUniversity Hospitals Cleveland Medical Center12-01-2022 Miscellaneous Notes* Telephone Encounter - [...] by mouth every day Patient Phone numbers: [phone] (home) Request is for script(s) to be escript to pharmacy. Kamille Hall LPN documented in this encounterUniversity Hospitals Cleveland Medical Center12-01-2022 Miscellaneous Notes* Telephone Encounter - Olga Salmon PA-C - 09/28/2022 9:12 AM EST Looks like she has established with a new PCP documented in this encounterUniversity Hospitals Cleveland Medical Center11-29-2022 NoteHNO ID: [id number] Author: Agustin Barahona APRN.HEATHER Service: ? Author Type: Nurse Practitioner Type: Progress Notes Filed: 10/02/2022 5:25 PM Note Text: Pt needs to establish with urology. Agustin Barahona APRN.[facility]ERDown [facility]11-29-2022 History of Present illness Narrative* Agustin Barahona [...] chart if unable to upload for the sales branch manager. Patient to follow up with sales branch manager 10/16/22. Patient continues to decline scheduling follow up appointment in the office or virtual until beginning of the year. Concerns: Area on her abdomen. Pharmaceutical Representative plan for next outreach: Will follow up in 2 weeks Signature Krupa Aparicio RN September 25, 2022 documented in this encounterUniversity Hospitals Cleveland Medical Center11-29-2022 [facility]11-28-2022 [facility]11-28-2022 [facility]11-28-2022 Miscellaneous Notes* Telephone Encounter - Agustin Barahona APRN.CNP - 09/25/2022 4:55 PM EST Pt needs to follow up with urology. Agustin A Rawleigh, BUILDING INSPECTION ENGINEER.MANAGER PHARMACY * Telephone Encounter - Krupa Aparicio RN - 09/25/2022 4:30 PM EST Patient phones requesting refills as follows: Last office visit 08/16/22 Requested Prescriptions Pending Prescriptions Disp Refills Methenamine Hippurate (HIPREX) 1 gram tablet 60 tablet 0 Sig: Take 1 tablet by mouth twice daily. Please review and advise. Krupa Aparicio RN documented in this encounterUniversity Hospitals Cleveland Medical Center11-21-2022 [facility]11-21-2022 [facility]11-18-2022 [facility]11-14-2022 Miscellaneous Notes* Telephone Encounter - Vickey Dumont MA - 09/11/2022 2:12 PM EST Per pts daughter the sales branch manager already has the results. Closing encounter Vickey Dumont MA * Telephone Encounter - Vickey Dumont MA - 09/11/2022 2:12 PM EST ----- Message from Agustin Barahona APRN.MANAGER PHARMACY sent at 09/08/2022 9:13 AM EST ----- Can we forward this result to her sales branch manager to maximize her treatment? Thank you, Agustin Barahona APRN.MANAGER PHARMACY documented in this encounterUniversity Hospitals Cleveland Medical Center11-11-2022 [facility]11-11-2022 [facility]11-11-2022 [facility]11-11-2022 History of Present illness Narrative* Krupa Aparicio [...] or increased dyspnea. Concerns: Cold, blood sugars Pharmaceutical Representative plan for next outreach: Will follow up in 1 week Signature Krupa Aparicio RN September 08, 2022 documented in this encounterUniversity Hospitals Cleveland Medical Center11-11-2022 Miscellaneous Notes* Telephone Encounter - [...] FOR ITCHING/RASH (FOR ITCHING). Patient Phone numbers: [phone] (home) Request is for script(s) to be escript to pharmacy. Jenna Gudino MA documented in this encounterUniversity Hospitals Cleveland Medical Center11-08-2022 [facility]11-04-2022 Miscellaneous Notes* Telephone Encounter - Nanda Sampson [...] Please advise.Kamille Hall LPN documented in this encounterUniversity Hospitals Cleveland Medical Center11-04-2022 [facility]11-03-2022 [facility]11-03-2022 [facility]11-03-2022 [facility]11-03-2022 Miscellaneous Notes* Telephone Encounter - Alejo Andersen - 08/31/2022 9:41 AM EDT [facility] to [facility]8 [facility] hosp f/u-- no answer, lvm w/ appt info and sent reminder ltr to pt Alejo Andersen August 31, 2022 9:41 AM * Telephone Encounter - Tea Reis APRN.CNP - 08/30/2022 10:25 PM EDT Please make a hospital follow up appointment to be seen in 6-[address] Silva or EDUCATION AND DEVELOPMENT MANAGER for chf Thank you Tea Reis APRN.HEATHER documented in this encounterUniversity Hospitals Cleveland Medical Center11-02-2022 [facility]11-02-2022 Nurse Note* Porsha Mejia RN - 08/30/2022 [...] was to re- establish the patientwith the [facility]. Kimberly reported that she does not have [...] reported has office number to both the [facility] and Dr. Silva (cardiology) Do you know [...] reported that she is out of her [place] which was prescribed a while back by pain clinic. Kimberly reported that she does have an referral to this department, but cannot schedule secondary to being reliant on her daughter to take her to multiple office visits Have you been taking your medications as directed? Yes Have you been maintaining a 9892-2601 mg of sodium diet? No - Kimberly reported that she is on a fixedbudget and obtains food stamps. Because of this, she cannot afford the lower sodium products in the[place] markets. She has been reliant on fast [...] recommendation made for her to contact her charter coordinator to reschedule. She is waiting on her [...] 30, 2022 2:58 PM documented in this encounterUniversity Hospitals Cleveland Medical Center11-01-2022 [facility]11-01-2022 [facility]11-01-2022 Miscellaneous Notes * Telephone Encounter - Sourav Hill - 08/29/2022 11:39 AM EDT Referral was submitted for patient via [facility] portal to: PAIN MANAGEMENT Confirmation number: [id number] Sourva Hill documented in this encounterUniversity Hospitals Cleveland Medical Center11-01-2022 Miscellaneous Notes* Telephone Encounter - [...] by mouth every day Patient Phone numbers: [phone] (home) Request is for script(s) to be escript to pharmacy. Mary Farr documented in this encounterUniversity Hospitals Cleveland Medical Center10-31-2022 NoteHNO ID: [id number] Author: Agustin Barahona APRN.CNP Service: ? Author Type: Nurse Practitioner Type: Progress Notes Filed: 08/28/2022 9:53 PM Note Text: Noted. Thank you. I will place a referral for pain management then. Agustin Barahona APRN.[facility]10-31-2022 History of Present illness Narrative* Agustin Barahona [...] daughter provides transportation. Krupa Aparicio RN * Augstin Barahona APRN.CNP - 08/28/2022 2:56 PM EDT [...] TCM Home Visit Referral Source of Stratification: [facility] Admission Status: Discharged Readmission Risk Score: 49 JOHNNY Score: 25 Patient meets program referral criteria: Yes Program referral criteria met: - Readmission risk score 40% or greater Patient qualifies for High Risk TCM Home Visit. Discussed High Risk TCM Home Visit Program with patient: Patient - Does not accept due to:Patient Declined Preferred contact number: [phone] Is patient staying somewhere other than the listed home address: No Dialysis Patient: No Krupa Aparicio RN August 28, 2022 9:34 AM TRANSITIONAL CARE MANAGEMENT (TCM) COMMUNITY MONITORING PROGRAM - [place] Provider Action/FYI: Patient declines HRTIC program. Patient [...] Krupa Aparicio RN SUMMARY: Pt discharged from [facility] on 08/27/22. Admitted for: CHF Contact [...] she was ready. [facility] to [facility]. Patient states that her daughter [...] RN and I am calling from the [facility] on behalf of your PCP, Agustin Barahona APRN.MANAGER PHARMACY I understand you were recently in the [...] like to speak with a social work felt hat steamer to help give you support for [...] I will send your request to a material scheduler who will contact and assist you [...] the way if possible). documented in this encounterUniversity Hospitals Cleveland Medical Center10-31-2022 [facility]-31-2022 [facility]-31-2022 [facility]-31-2022 Miscellaneous Notes* Telephone Encounter - Sourav Hill - 08/28/2022 8:54 AM EDT Patient's daughter Alexandro Cote left . Patient last saw Agustin Barahona on 08/16/22. (Alexandro's ph number [phone].) Alexandro said that patient was D/C from [...] 08/27/22. I called the pharmacy which is: [email or web address] [email or web address] [facility] [place] [address] [address] [facility] - [phone] I spoke with pharmacist, he said script was received but was denied at first, he resubmitted and itwas accepted, he confirmed they have the medication in stock. I left for Alexandro, gave her update about the med being filled, told her I would make medical staffaware as well. Thank you, Sourav Hill documented in this encounterUniversity Hospitals Cleveland Medical Center10-30-2022 [facility] Miscellaneous Notes * Telephone Encounter - Martín Carbajal MD - 08/26/2022 5:51 PM EDT Got a call from patient's sister, who stated that patient is admitted at [facility], and was seen by Cardiology VP [employer] today. The pat was under the impression [...] is the admitting hospitalist. documented in this encounterUniversity Hospitals Cleveland Medical Center10-29-2022 [facility]2022 Miscellaneous Notes* Telephone Encounter - Agustin Barahona [...] by mouth every day Patient Phone numbers: [phone] (home) Request is for script(s) to be escript to pharmacy. Mary Farr documented in this encounterUniversity Hospitals Cleveland Medical Center10-27-2022 [facility]20[facility]2022 Miscellaneous Notes* Telephone Encounter - Navya Luna [...] advise Navya Luna MA documented in this encounterUniversity Hospitals Cleveland Medical Center10-26-2022 NoteHNO ID: [id number] Author: Toyin Marrero RN Service: ? Author Type: Registered Nurse Type: Nursing Progress Note Filed: 08/22/2022 11:06 PM Note Text: Pt EC=419/46. Sound notified. Awaiting response.[facility] 08-21-2022 Miscellaneous Notes* Telephone Encounter - Val [...] daughter gets off of work like her charter coordinator recommended, but is unsure what they will do. Val Bee MA * Telephone Encounter - Sourav Hill - 08/21/2022 1:05 PM EDT Patient left VM, she states that her charter coordinator told her she should go to the ER for the swelling in her legs. She is concerned about overusing the ER and would like to speak to our office about this matter. Patient's phone number is: [phone] Please advise. Thank you. Sourav Hill documented in this encounterUniversity Hospitals Cleveland Medical Center10-24-2022 Miscellaneous Notes* Telephone Encounter - [...] on08/29/22. Sheree Kan RN documented in this encounterUniversity Hospitals Cleveland Medical Center10-20-2022 [facility]20[facility] History of Present illness Narrative* Disha [...] . Disha Camejo RN documented in this [facility]10-20-2022 History of Present illness Narrative* Disha Camejo [...] Dx and high utilization. documented in this encounterUniversity Hospitals Cleveland Medical Center10-19-2022 [facility]-19-2022 Instructions* Patient Instructions* Agustin Barahona APRN.MANAGER PHARMACY - 2022 12:16 PM EDT 1-establish with nephrology today 2-establish with dermatology 3-follow up with cardiology 4-apply Bactroban to open areas 5-take keflex as prescribed 6-complete US of bilateral legs. 7-change dressing daily documented in this [facility]10-19-2022 Nurse Note* Val Bee MA - 2022 12:01 PM EDT Kimberly Patel is a 67 year old female who presents to follow up for Rash. Val Bee MA' documented in this [facility]10-19-2022 History of Present illness Narrative* Agustin Barahona APRN.MANAGER PHARMACY - 2022 11:40 AM EDT Images from the original note were not included. [facility] [address] [place] [address] Date of Evaluation: 2022 Patient Name: Kimberly [...] >5 years ago CHF (congestive heart failure) ([facility]) COPD (chronic obstructive pulmonary disease) ([facility]) DM2 (diabetes mellitus, type 2) ([facility]) HTN (hypertension) Mixed hyperlipidemia Pneumonia due to [...] by mouth once daily. 90 Packet0 Insulin [place], Disposable, (PEN NEEDLE) 31 gauge x 3/16 [...] 2 Lancing Device (LANCING DEVICE WITH LANCETS) [facility] Use as directed to check blood sugar [...] to follow with home care Agustin Barahona APRN.MANAGER PHARMACY Return in about 6 weeks (around 09/27/2022), or if symptoms worsen or fail to improve. Discussed the above with the patient using shared decision making. The patient is in agreement with the diagnostic and treatment plans. documented in this encounterUniversity Hospitals Cleveland Medical Center10-14-2022 Miscellaneous Notes* Telephone Encounter - Anette Lopez MA - 08/11/2022 3:34 PM EDT Patient/Patient's Pharmacy is requesting the following refill. Patient's last appointment: with Agustin Barahona CNP was 07/05/2022. Next appointment: 2022 with Agustin Barhaona CNP. Requested Prescriptions Pending Prescriptions Disp Refills furosemide (LASIX) 20 mg tablet [Pharmacy Med Name: FUROSEMIDE 20 MG TABLET] 90 tablet 1 Sig: TAKE 2 TABLETS BY MOUTH EVERY DAY Patient Phone numbers: [phone] (home) Request is for script(s) to be escript to pharmacy. Anette Lopez MA documented in this encounterUniversity Hospitals Cleveland Medical Center10-13-2022 Miscellaneous Notes* Telephone Encounter - [...] thank you! Luana Hilton documented in this encounterUniversity Hospitals Cleveland Medical Center10-10-2022 Miscellaneous Notes* Telephone Encounter - [...] by mouth twice daily. Patient Phone numbers: [phone] (home) Request is for script(s) to be escript to pharmacy. Haley Cook documented in this encounterUniversity Hospitals Cleveland Medical Center10-07-2022 Miscellaneous Notes* Telephone Encounter - [...] recently. Patient asking for call back: Ph. [phone] Please advise. Thank you. Sourav Hill documented in this encounterUniversity Hospitals Cleveland Medical Center10-05-2022 Miscellaneous Notes* Telephone Encounter - Sneha Hager - 08/02/2022 2:20 PM EDT Patient contacted. Dr Enriquez is not available until sep 05. Patient declined to schedule She will call the [facility] at [phone] * Telephone Encounter - Alexandro Qureshi RN - 08/02/2022 12:02 PM EDT Patient calling in for ERFU appointment with Dr. Enriquez for her rash. Please call patient back. thanks documented in this encounterUniversity Hospitals Cleveland Medical Center10-05-2022 Miscellaneous Notes* Telephone Encounter - [...] She asked to be called back at: [phone] The reason I am sending this as a high priority telephone encounter is that I noted patient was seen in ED yesterday 08/01/22. Please advise. Thank you. Sourav Hill documented in this encounterUniversity Hospitals Cleveland Medical Center09-29-2022 Miscellaneous Notes* Telephone Encounter - Micheline Marroquin RN - 07/27/2022 2:11 PM EDT Pt called for 07/31/22 appointment confirmation and pt states she wishes to have appt be a telephonevisit with an RN rather than an in-person visit due to transportation issues and feeling unwell from frequent UTI's. Appt changed to telephone appt per pt request. documented in this encounterUniversity Hospitals Cleveland Medical Center09-22-2022 Miscellaneous Notes* Telephone Encounter - Travis House RN - 07/20/2022 1:24 PM EDT Phone call placed to daughter regarding a change in scheduling with patient [facility] appt on 07/21/22. Patient was in ED yesterday for UTI. Daughter further states that her Lasix was recently increased by PCP. Encouraged follow up with PCP regarding any further changes with Lasix. Alexandro verbalized understanding. documented in this encounterUniversity Hospitals Cleveland Medical Center09-19-2022 Miscellaneous Notes* Telephone Encounter - [...] asked for a call back at phone: [phone] Please advise. Thank you. Sourav Hill documented in this encounterUniversity Hospitals Cleveland Medical Center09-19-2022 Miscellaneous Notes* Telephone Encounter - [...] accordingly. Merissa Browne LPN documented in this encounterUniversity Hospitals Cleveland Medical Center09-09-2022 Miscellaneous Notes* Telephone Encounter - [...] Susan Kehr, PharmD, BCACP documented in this encounterUniversity Hospitals Cleveland Medical Center09-08-2022 NoteHNO ID: [id number] Author: Susan Cuello RPh Service: ? Author [...] (Dr. Deng), 03/22/22 [facility] (EDUCATION AND DEVELOPMENT MANAGER Shea Childers), 04/13/22 New Provider: SETH Barahona, [...] SUBJECTIVE: Reports recently switched PCPs: now seeing EDUCATION AND DEVELOPMENT MANAGER Agustin Barahona Need Tradjenta refills sent to [facility] for pill pack Has not been checking [...] (HF sodium-free diet); does reportedly lightly salt [place] fries infrequently EXERCISE: walks around inside of [...] (Obstructive Sleep Apnea) Chf (Congestive Heart Failure) ([facility]) Type 2 Diabetes Mellitus With Diabetic Polyneuropathy, With Long-Term Current Use of Insulin ([facility]) Coronary Arteriosclerosis in [place] Artery Bipolar Disorder ([facility]) Mixed Hyperlipidemia Class 3 Severe Obesity With Serious Comorbidity and Body Mass Index (Bmi) of 45.0 to 49.9 in Adult ([facility]) Chronic Respiratory Failure With Hypoxia ([facility]) Chronic Obstructive Pulmonary Disease ([facility]) Physical Debility Recurrent Uti (Urinary Tract Infection) Primary Hypertension Stage 3b Chronic Kidney Disease (Hcc) Microalbuminuria Restrictive Lung Disease Chronic Heart Failure With Preserved Ejection Fraction (Hfpef) ([facility]) Requires Assistance With Activities of Daily Living (Adl) Weakness of Both Legs Ddd (Degenerative Disc Disease), Lumbar Spondylolisthesis of Lumbar Region Trigger Middle Finger of Right Hand History of Covid-19 Slow Transit Constipation PAST MEDICAL HISTORY Diagnosis Date Asthma CAD (coronary artery disease) s/p stent. last one >5 years ago CHF (congestive heart failure) ([facility]) COPD (chronic obstructive pulmonary disease) ([facility]) DM2 (diabetes mellitus, type 2) ([facility]) HTN (hypertension) Mixed hyperlipidemia Pneumonia due to COVID-19 virus 10/13/2020 ALLERGIES Allergen Reactions Dilaudid [Hydromorp* Vomiting Jardiance [Empaglif* Other: See Comments UTI (more content not included)...[facility]09-08-2022 History of Present illness Narrative* Susan Dior, [facility] - 07/06/2022 11:30 AM EDT Primary Care Pharmacy Visit Patient consents to pharmacy consult agreement. CC (Reason for Consult): Type 2 diabetes mellitus with diabetic polyneuropathy, with long-term current use of insulin ([facility]) - ICD9: 250.60, 357.2, V58.67, ICD10: E11.42, Z79.4 Goal: A1c <8% Last Collaborating Physician Visit: [facility] (Dr. Deng), 03/22/22 [facility] (EDUCATION AND DEVELOPMENT MANAGER Shea Childers), 04/13/22 New Provider: SETH Barahona, 07/05/22 Kimberly Patel is a 66 year old female presenting for follow up visit virtually. Patient consents [facility] collaborative practice agreement. . HPI: patient was [...] SUBJECTIVE: Reports recently switched PCPs: now seeing EDUCATION AND DEVELOPMENT MANAGER Agustin Barahona Need Tradjenta refills sent to [facility] for pill pack Has not been checking [...] weeks) Sodium Intake: does NOT add; uses MsBarndi Arauz (HF sodium-free diet); does reportedly lightly salt [place] fries infrequently EXERCISE: walks around inside of [...] (Obstructive Sleep Apnea) Chf (Congestive Heart Failure) ([facility]) Type 2 Diabetes Mellitus With Diabetic Polyneuropathy, With Long-Term Current Use of Insulin ([facility]) Coronary Arteriosclerosis in [place] Artery Bipolar Disorder ([facility]) Mixed Hyperlipidemia Class 3 Severe Obesity With Serious Comorbidity and Body Mass Index (Bmi) of 45.0 to 49.9 in Adult ([facility]) Chronic Respiratory Failure With Hypoxia ([facility]) Chronic Obstructive Pulmonary Disease ([facility]) Physical Debility Recurrent Uti (Urinary Tract Infection) Primary Hypertension Stage 3b Chronic Kidney Disease ([facility]) Microalbuminuria Restrictive Lung Disease Chronic Heart Failure With Preserved Ejection Fraction (Hfpef) ([facility]) Requires Assistance With Activities of Daily Living (Adl) Weakness of Both Legs Ddd (Degenerative Disc Disease), Lumbar Spondylolisthesis of Lumbar Region Trigger Middle [place]inger of Right Hand History of Covid-19 Slow Transit Constipation PAST MEDICAL HISTORY Diagnosis Date Asthma CAD (coronary artery disease) s/p stent. last one >5 years ago CHF (congestive heart failure) ([facility]) COPD (chronic obstructive pulmonary disease) ([facility]) DM2 (diabetes mellitus, type 2) ([facility]) HTN (hypertension) Mixed hyperlipidemia Pneumonia due to COVID-19 virus 10/13/2020 ALLERGIES Allergen Reactions Dilaudid [H[employer]orp* Vomiting Jardiance [Empaglif* Other: See Comments UTI Metformin Diarrhea Morphine Vomiting Ondansetron Unknown Penicillins Rash Trulicity [Dulaglut* GI Upset Nausea/Vomiting MEDICATIONS/SUPPLIES: Pill bottles are not present. Adherence: denies missed doses. Organization System: [employer] Pill-pack for all oral meds (Divvy-Dose) Does the patient have diabetes supplies: Yes CGM = [employer] Gabrielle 2; has mobile fern & reader device (via [employer]; $0 co-pay) In current transition to new CGM supply company --> [employer]... Glucometer = One touch ultra 2 Lancing Device = [facility] generic Pharmacy: [facility] [id number] [place] [address] - [address] - [phone] Divvy-Dose for maintenance meds [facility] for insulins and emergent / short term meds Rx coverage: Payor: [facility] MEDICARE / Plan: [facility] DUAL COMPLETE HMO SNP / Product Type: [...] injecting 40 units TID AC meals Insulin [place], Disposable, (PEN NEEDLE) 31 gauge x 3/16 [...] polyneuropathy, with long-term current use of insulin ([facility]) - ICD9: 250.60, 357.2, V58.67, ICD10: E11.42, [...] Susan Cuello, Boone[place], BCACP documented in this encounterUniversity Hospitals Cleveland Medical Center09-07-2022 Miscellaneous Notes* Telephone Encounter - Solange Arenas RN - 07/05/2022 8:36 AM EDT Patient called the [facility] with concerns regarding increased swelling. Denies dietary [...] weeks and encouraged her to call the [facility]. She is scheduled for a phone visit with the [facility] on 07/21/22. Patient states that she forgets to take the second dose of Lasix. Review of note from primary states that the patient was to take 40 mg of Lasix daily. Encouraged patient to take 2 tablets of her 20 mg Lasix (40 mg) daily x 2 weeks as directed by primary. Patient advised to call the [facility] if swelling increases or symptoms develop. Patient verbalized understanding. documented in this encounterUniversity Hospitals Cleveland Medical Center09-07-2022 Instructions* Patient Instructions* Agustin Barahona [...] please let me know. documented in this encounterUniversity Hospitals Cleveland Medical Center09-07-2022 History of Present illness Narrative* Agustin Barahona APRN.CNP - 07/05/2022 8:01 AM EDT VIRTUAL VISIT PROGRESS NOTE This is a virtual visit using Xenome video visit. It required patient-provider interaction for [...] next week. 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 and no longer hot per [...] >5 years ago CHF (congestive heart failure) ([facility]) COPD (chronic obstructive pulmonary disease) ([facility]) DM2 (diabetes mellitus, type 2) ([facility]) HTN (hypertension) Mixed hyperlipidemia Pneumonia due to [...] 80 units subcutaneously in the PM Insulin [place], Disposable, (PEN NEEDLE) 31 gauge x 16 [...] which included preparing to see the patient, [id number] patient care, completing clinical documentation, obtaining and/or reviewing separately obtained history, performing a medically appropriate examination, counseling and educating the pat ient/family/caregiver, and ordering medications, tests, or procedures Agustin Barahona APRN.MANAGER PHARMACY documented in this encounterUniversity Hospitals Cleveland Medical Center09-02-2022 Miscellaneous Notes* Telephone Encounter - Modesta Hager - 06/30/2022 6:07 PM EDT Patient, , states she is cancelling [facility] Services and now has a new PCP as of 06/23/22. Modesta Hager * Telephone Encounter - Domenica Olvera - 06/29/2022 8:54 AM EDT Please call pt to verify if she will be continuing with [facility] or staying with her currently listed PCP and update chart accordingly. Domenica Olvera documented in this encounterUniversity Hospitals Cleveland Medical Center08-31-2022 Miscellaneous Notes* Telephone Encounter - [...] (07/10/22 at 8pm). Patient's phone number is: [phone] Please advise. Thank you. Sourav Hill .sourav documented in this encounterUniversity Hospitals Cleveland Medical Center08-30-2022 Miscellaneous Notes* Telephone Encounter - Sourav Hill - 06/27/2022 9:57 AM EDT Referral was submitted for patient via [facility] portal to: [facility] Confirmation number: [id number] Sourav Hill documented in this encounterUniversity Hospitals Cleveland Medical Center08-29-2022 Miscellaneous Notes* Telephone Encounter - Sourav Hill - 06/26/2022 4:16 PM EDT Faxed referral for home health to [facility] no. [phone] Sourav Sergio documented in this encounterUniversity Hospitals Cleveland Medical Center08-29-2022 Miscellaneous Notes* Telephone Encounter - [...] DM. Agustin Barahona APRN.CNP documented in this encounterUniversity Hospitals Cleveland Medical Center08-29-2022 Miscellaneous Notes* Telephone Encounter - Porsha Mejia RN - 06/26/2022 11:37 AM EDT Requesting order for continued follow up with the [facility] documented in this encounterUniversity Hospitals Cleveland Medical Center08-26-2022 Instructions* Patient Instructions* Agustin Barahona APRN.CNP - 06/23/2022 1:45 PM EDT 1-take [...] hydrocortisone cream on rash documented in this encounterUniversity Hospitals Cleveland Medical Center08-26-2022 History of Present illness Narrative* Agustin Barahona APRN.CNP - 06/23/2022 1:00 PM EDT Images from the original note were not included. [facility] [address] [place] [address] Date of Evaluation: 06/25/2022 Patient Name: Kimberly Patel : 1955 Chief Complaint: Patient presents with: New Patient Evaluation Nursing Intake: There are no exam notes on file for this visit. Subjective Ms. Patel is a 66 year old female who presents with the following complaint(s): HPI Pt presents to establish with provider. Pt seen last at [facility] by Dr. Moe Meyer in November for [...] SOB at bedtime. Pt has hx of DIYA, does not tolerate CPAP. Improvement in diet [...] >5 years ago CHF (congestive heart failure) ([facility]) COPD (chronic obstructive pulmonary disease) ([facility]) DM2 (diabetes mellitus, type 2) ([facility]) HTN (hypertension) Mixed hyperlipidemia Pneumonia due to [...] 80 units subcutaneously in the PM Insulin [place], Disposable, (PEN NEEDLE) 31 gauge x 01/11 [...] polyneuropathy, with long-term current use of insulin ([facility]) - ICD9: 250.60, 357.2, V58.67, ICD10: E11.42, [...] as scheduled 10. Coronary artery disease involving [place] coronary artery of [place] heart without angina pectoris - ICD9: 414.01, ICD10: I25.10 -schedule annual apt with cardiology - LIPID PANEL BASIC 11. Stage 3b chronic kidney disease (HCC) - ICD9: 585.3, ICD10: N18.32 -establish with nephrology 12. Elevated TSH - ICD9: 794.5, ICD10: R79.89 - TSH BLD Agustin Barahona APRN.MANAGER PHARMACY Return in about 3 weeks (around 07/14/2022). Discussed the above with the patient using shared decision making. The patient is in agreement with the diagnostic and treatment plans. documented in this encounterUniversity Hospitals Cleveland Medical Center08-15-2022 NoteHNO ID: [id number] Author: Susan Cuello RPh Service: ? Author [...] (Dr. Deng), 03/22/22 [facility] (EDUCATION AND DEVELOPMENT MANAGER Shea Childers), 04/13/22 Kimberly Patel is a [...] (HF sodium-free diet); does reportedly lightly salt [place] fries infrequently EXERCISE: walks around inside of [...] (Obstructive Sleep Apnea) Chf (Congestive Heart Failure) ([facility]) Type 2 Diabetes Mellitus With Diabetic Polyneuropathy, With Long-Term Current Use of Insulin ([facility]) Coronary Arteriosclerosis in [place] Artery Bipolar Disorder ([facility]) Mixed Hyperlipidemia Class 3 Severe Obesity With Serious Comorbidity and Body Mass Index (Bmi) of 45.0 to 49.9 in Adult ([facility]) Chronic Respiratory Failure With Hypoxia ([facility]) Chronic Obstructive Pulmonary Disease ([facility]) Physical Debility Recurrent Uti (Urinary Tract Infection) Primary Hypertension Stage 3b Chronic Kidney Disease ([facility]) Microalbuminuria Restrictive Lung Disease Chronic Heart Failure With Preserved Ejection Fraction (Hfpef) ([facility]) Requires Assistance With Activities of Daily Living (Adl) Weakness of Both Legs Ddd (Degenerative Disc Disease), Lumbar Spondylolisthesis of Lumbar Region Trigger Middle Finger of Right Hand History of Covid-19 Slow Transit Constipation PAST MEDICAL HISTORY Diagnosis Date Asthma CAD (coronary artery disease) s/p stent. last one >5 years ago CHF (congestive heart failure) ([facility]) COPD (chronic obstructive pulmonary disease) (HCC) DM2 (diabetes mellitus, type 2) ([facility]) HTN (hypertension) Mixed hyperlipidemia Pneumonia due to COVID-19 virus 10/13/2020 ALLERGIES Allergen Reactions Dilaudid [H[employer]romorp* Vomiting Jardiance [Empaglif* Other: See Comments UTI Metformin Diar (more content not included)...[facility] 06-09-2022 Miscellaneous Notes* Telephone Encounter - Frankie Deng MD - 06/09/2022 2:30 PM EDT Breo and albuterol INH eRx'd to [facility]. documented in this encounterUniversity Hospitals Cleveland Medical Center08-02-2022 Miscellaneous Notes* Telephone Encounter - Merissa Browne LPN - 05/30/2022 8:03 AM EDT Patient's request for medication is as follows: Pending Prescriptions Disp Refills EZETIMIBE 10 MG TABLET 90 tablet 2 Sig: TAKE 1 TABLET BY MOUTH EVERY DAY PETE: Yes Last seen 02/27/2022. Prescription(s) as above. Please process accordingly. Merissa Browne LPN documented in this encounterUniversity Hospitals Cleveland Medical Center07-26-2022 NoteHNO ID: [id number] Author: Susan Cuello [facility] Service: ? Author Type: Pharmacist Type: Progress Notes Filed: 05/24/2022 3:58 PM Note Text: Primary Care Pharmacy Visit Patient consents to pharmacy consult agreement. CC (Reason for Consult):?Type 2 diabetes mellitus with diabetic polyneuropathy, with long-term current use of insulin ([facility]) - ICD9: 250.60, 357.2, V58.67, ICD10: E11.42, Z79.4 ? Goal: A1c <8% Last Collaborating Physician Visit:?[facility] (Dr. Deng), 03/22/22 [facility] (EDUCATION AND DEVELOPMENT MANAGER Shea Childers),?04/13/22 Kimberly Patel is a 66 [...] difficulty with skin pinch. 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 ? linagliptin?5 [...] (HF sodium-free diet); does reportedly lightly salt central african fries infrequently ? EXERCISE:?walks around inside of [...] (Obstructive Sleep Apnea) Chf (Congestive Heart Failure) ([facility]) Type 2 Diabetes Mellitus With Diabetic Polyneuropathy, With Long-Term Current Use of Insulin ([facility]) Coronary Arteriosclerosis in Solomon Artery Bipolar Disorder ([facility]) Mixed Hyperlipidemia Class 3 Severe Obesity With Serious Comorbidity and Body Mass Index (Bmi) of 45.0 to 49.9 in Adult ([facility]) Chronic Respiratory Failure With Hypoxia ([facility]) Chronic Obstructive Pulmonary Disease ([facility]) Physical Debility Recurrent Uti (Urinary Tract Infection) Primary Hypertension Stage 3b Chronic Kidney Disease ([facility]) Microalbuminuria Restrictive Lung Disease Chronic Heart Failure With Preserved Ejection Fraction (Hfpef) ([facility]) Requires Assistance With Activities of Daily Living (Adl) Weakness of Both Legs Ddd (Degenerative Disc Disease), Lumbar Spondylolisthesis of Lumbar Region Trigger Middle Finger of Right Hand History of Covid-19 Slow Transit Constipation PAST MEDICAL HISTORY Diagnosis Date - Asthma - CAD (coronary artery disease) s/p stent. last one >5 years ago - CHF (congesti (more content not included)...[facility] 05-23-2022 History of Present illness Narrative* Susan Cuello, [facility] - 05/23/2022 2:30 PM EDT Images from the original note were not included. Primary Care Pharmacy Visit Patient consents to pharmacy consult agreement. CC (Reason for Consult): Type 2 diabetes mellitus with diabetic polyneuropathy, with long-term current use of insulin ([facility]) - ICD9: 250.60, 357.2, V58.67, ICD10: E11.42, Z79.4 Goal: A1c <8% Last Collaborating Physician Visit: [facility] (Dr. Deng), 03/22/22 [facility] (EDUCATION AND DEVELOPMENT MANAGER Shea Childers), 04/13/22 Kimberly Patel is a [...] difficulty with skin pinch. 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 Current DM medications: linagliptin [...] (HF sodium-free diet); does reportedly lightly salt central african fries infrequently EXERCISE: walks around inside of [...] (Obstructive Sleep Apnea) Chf (Congestive Heart Failure) ([facility]) Type 2 Diabetes Mellitus With Diabetic Polyneuropathy, With Long-Term Current Use of Insulin ([facility]) Coronary Arteriosclerosis in Solomon Artery Bipolar Disorder ([facility]) Mixed Hyperlipidemia Class 3 Severe Obesity With Serious Comorbidity and Body Mass Index (Bmi) of 45.0 to 49.9 in Adult (H[facility]) Chronic Respiratory Failure With Hypoxia ([facility]) Chronic Obstructive Pulmonary Disease ([facility]) Physical Debility Recurrent Uti (Urinary Tract Infection) Primary Hypertension Stage 3b Chronic Kidney Disease ([facility]) Microalbuminuria Restrictive Lung Disease Chronic Heart Failure With Preserved Ejection Fraction (Hfpef) ([facility]) Requires Assistance With Activities of Daily Living (Adl) Weakness of Both Legs Ddd (Degenerative Disc Disease), Lumbar Spondylolisthesis of Lumbar Region Trigger Middle Finger of Right Hand History of Covid-19 Slow Transit Constipation PAST MEDICAL HISTORY Diagnosis Date Asthma CAD (coronary artery disease) s/p stent. last one >5 years ago CHF (congestive heart failure) ([facility]) COPD (chronic obstructive pulmonary disease) ([facility]) DM2 (diabetes mellitus, type 2) ([facility]) HTN (hypertension) Mixed hyperlipidemia Pneumonia due to COVID-19 virus 10/13/2020 ALLERGIES Allergen Reactions Dilaudid [Hydromorp* Vomiting Jardiance [Empaglif* Other: See Comments UTI Metformin Diarrhea Morphine Vomiting Ondansetron Unknown Penicillins Rash Trulicity [Dulaglut* GI Upset Nausea/Vomiting MEDICATIONS/SUPPLIES: Pill bottles are not present. Adherence: denies missed doses. Organization System: [employer] Pill-pack for all oral meds (Divvy-Dose) Does the patient have diabetes supplies: Yes ? CGM = [employer] Gabrielle 2; has mobile fern & reader device (via [employer]; $0 co-pay) In current transition to new CGM supply company --> [employer]... ? Glucometer = One touch ultra 2 ? Lancing Device [facility] [address] [address] [address] [place] [address] - [address] - [phone] ? Divvy-Dose for maintenance meds ? [facility] and emergent / short term meds Rx coverage: Payor: [facility] MEDICARE / Plan: [facility] DUAL COMPLETE HMO SNP / Product Type: [...] or immediately after your meals. Confirmed Insulin [place], Disposable, (PEN NEEDLE) 31 gauge x 3/16 [...] GLYCEMIC CONTROL: Glucometer/CGM present at visit: Yes; [employer] 2 synced remotely Summary of CGM Findings: [...] Not calculated The 10-year ASCVD risk score ([place] EDDIE Jr., et al., 2013) is: 17.7% Values used to calculate the score: Age: 66 years Sex: Female Is Non- : No Diabetic: Yes Tobacco smoker: No Systolic Blood Pressure: 148 mmHg Is BP treated: Yes HDL Cholesterol: 41 mg/dL Total Cholesterol: 179 mg/dL PHARMACOTHERAPY ASSESSMENT/PLAN 1.) Type 2 diabetes mellitus with diabetic polyneuropathy, with long-term current use of insulin ([facility]) - ICD9: 250.60, 357.2, V58.67, ICD10: E11.42, [...] Susan Cuello PharmD, BCACP documented in this encounterUniversity Hospitals Cleveland Medical Center07-14-2022 Miscellaneous Notes* Telephone Encounter - KRISTIN Mendiola - 05/11/2022 12:57 PM EDT Visit cancelled. Call back not received from family. Will make further attempts to reschedule. KRISTIN Mendiola * Telephone Encounter - KRISTIN Mendiola - 05/10/2022 4:36 PM EDT Left message at [phone] requesting call back to confirm post hospital for 05/12. KRISTIN Mendiola * Telephone Encounter - Frankie Deng MD - 05/08/2022 6:42 PM EDT Page by dtr. Pt DC'd from [facility] yesterday. Had sepsis and UTI. Furosemide held. Later restarted with reduction in edema. Decrease urine output and increased edema. Mild constipation. Reviewed that constipation can lead to impaired urine output. Trial Miralax. Suspect that once sufficient BM occurs, urine output will improve and LE edema will decrease. Call back if constipation persists. Please note that pt needs post-hospitalization fu. Thanks. documented in this encounterUniversity Hospitals Cleveland Medical Center07-13-2022 NoteHNO ID: [id number] Author: Susan Cuello [facility] Service: ? Author Type: Pharmacist Type: Progress [...] (Dr. Deng), 03/22/22 [facility] (EDUCATION AND DEVELOPMENT MANAGER Shea Childers), 04/13/22 Kimberly Patel is a [...] Reports will be establishing with an external Automobile Accessories Installer, Dr. Ramírez on 06/22/22 - Skipped her [...] (HF sodium-free diet); does reportedly lightly salt central african fries infrequently ? EXERCISE:?walks around inside of [...] Use of Insulin ([facility]) Coronary Arteriosclerosis in Solomon Artery Bipolar Disorder ([facility]) Mixed Hyperlipidemia Class 3 Severe Obesity With Serious Comorbidity and Body Mass Index (Bmi) of 45.0 to 49.9 in Adult ([facility]) Chronic Respiratory Failure With Hypoxia ([facility]) Chronic Obstructive Pulmonary Disease ([facility]) Physical Debility Recurrent Uti (Urinary Tract Infection) Primary Hypertension Stage 3b Chron (more content not included)...[facility] 05-10-2022 History of Present illness Narrative* Susan Cuello, [facility] - 05/10/2022 11:30 AM EDT Images from the original note were not included. Primary Care Pharmacy Visit Patient consents to pharmacy consult agreement. CC (Reason for Consult): Type 2 diabetes mellitus with diabetic polyneuropathy, with long-term current use of insulin ([facility]) - ICD9: 250.60, 357.2, V58.67, ICD10: E11.42, Z79.4 Goal: A1c <8% Last Collaborating Physician Visit: [facility] (Dr. Deng), 03/22/22 [facility] (EDUCATION AND DEVELOPMENT MANAGER Shea Childers), 04/13/22 Kimberly Patel is a [...] Reports will be establishing with an external Automobile Accessories Installer, Dr. Ramírez on 06/22/22 Skipped her Levemir [...] 42 units before dinner -- has been units TID AC meals Previously trialed DM [...] (HF sodium-free diet); does reportedly lightly salt central african fries infrequently EXERCISE: walks around inside of [...] (Obstructive Sleep Apnea) Chf (Congestive Heart Failure) ([facility]) Type 2 Diabetes Mellitus With Diabetic Polyneuropathy, With Long-Term Current Use of Insulin ([facility]) Coronary Arteriosclerosis in Solomon Artery Bipolar Disorder ([facility]) Mixed Hyperlipidemia Class 3 Severe Obesity With Serious Comorbidity and Body Mass Index (Bmi) of 45.0 to 49.9 in Adult ([facility]) Chronic Respiratory Failure With Hypoxia ([facility]) Chronic Obstructive Pulmonary Disease ([facility]) Physical Debility Recurrent Uti (Urinary Tract Infection) Primary Hypertension Stage 3b Chronic Kidney Disease ([facility]) Microalbuminuria Restrictive Lung Disease Chronic Heart Failure With Preserved Ejection Fraction (Hfpef) ([facility]) Requires Assistance With Activities of Daily Living (Adl) Weakness of Both Legs Ddd (Degenerative Disc Disease), Lumbar Spondylolisthesis of Lumbar Region Trigger Middle Finger of Right Hand History of Covid-19 Slow Transit Constipation PAST MEDICAL HISTORY Diagnosis Date Asthma CAD (coronary artery disease) s/p stent. last one >5 years ago CHF (congestive heart failure) ([facility]) COPD (chronic obstructive pulmonary disease) ([facility]) DM2 (diabetes mellitus, type 2) ([facility]) HTN (hypertension) Mixed hyperlipidemia Pneumonia due to COVID-19 virus 10/13/2020 ALLERGIES Allergen Reactions Dilaudid [[employer]* Vomiting Jardiance [Empaglif* Other: See Comments UTI Metformin Diarrhea Morphine Vomiting Ondansetron Unknown Penicillins Rash Trulicity [Dulaglut* GI Upset Nausea/Vomiting MEDICATIONS/SUPPLIES: Pill bottles are not present. Adherence: reports missed doses. o Missed Levemir this AM Organization System: [employer] Pill-pack for all oral meds (Divvy-Dose) Does the patient have diabetes supplies: Yes ? CGM = [employer] Gabrielle 2; has mobile fern & reader device (via [employer]; $0 co-pay) In current transition to new CGM supply company --> [employer]... ? Glucometer = One touch ultra 2 ? Lancing Device = [facility] [address] [place] [address] [address] - [phone] ? Divvy-Dose for maintenance meds ? [facility] and emergent / short term meds Rx coverage: Payor: [facility] MEDICARE / Plan: [facility] DUAL COMPLETE HMO SNP / Product Type: [...] being home from hospital See Plan Insulin [place], Disposable, (PEN NEEDLE) 31 gauge x 3/16 [...] GLYCEMIC CONTROL: Glucometer/CGM present at visit: Yes; [employer] Gabrielle 2 synced remotely Summary of CGM [...] polyneuropathy, with long-term current use of insulin ([facility]) - ICD9: 250.60, 357.2, V58.67, ICD10: E11.42, [...] you, Susan Cuello PharmD documented in this encounterUniversity Hospitals Cleveland Medical Center07-10-2022 NoteDischarge Summary Kimberly Patel : [...] Your Medications These medications were sent to [facility] [address] [facility] - [place], [place] - [address] - P [phone] - F [phone] [place] [address] insulin glargine 100 UNIT/ML injection vial insulin lispro 100 UNIT/ML injection vial DIET: ADULT DIET; Regular; 5 carb choices (75 gm/meal) ACTIVITY: No restriction. up with assist SIGNIFICANT DIAGNOSTIC STUDIES: COMPLEXITY OF FOLLOW UP: [] Moderate Complexity: follow up within 7-14 calendar days (54191) [] Severe Complexity: follow up within 7 calendar days (62011) FOLLOW UP TESTING, PENDING RESULTS OR REFERRALS [...] minutes SIGNED: Carli Benites MD 05/07/2022, 3:18 [facility]07-10-2022 History of Present illness Narrative* Marsha Shahid [...] included. Hospitalist Progress Note 05/06/2022 2:14 PM [phone]: Please page me ([phone]) for patient care issues. [phone]: Please page [facility] night Hospitalist for any issues. Subjective: Admit Date: 04/30/2022 PCP: FRANKIE DENG MD Room#: 346/4157 Interval History: Overnight events reviewed, pt wants to get ptot today before going home. also is refusing [facility] home denies chest pain, sob, abdominal pain, [...] of Hospitalist Medicine Inpatient Medical Services PAGER: [phone] * Irais Ramírez MD - 05/06/2022 9:00 AM EDT [facility] Subjective/ 66 [...] included. Hospitalist Progress Note 05/05/2022 4:48 PM [phone]: Please page me ([phone]) for patient care issues. [phone]: Please page [facility] night Hospitalist for any issues. Subjective: Admit Date: 04/30/2022 PCP: FRANKIE DENG MD Room#: 287/6325 Interval History: Overnight events reviewed, refused therapy today, she claims that she is not ready for discharge today, also is refusing penitentiary home denies chest pain, sob, abdominal pain, [...] Patient refusing SNF, would prefer home with [facility]. Possible discharge tomorrow after PT evaluation -am labs, replace lytes prn -increase activity -DVT prophylaxis: [] Lovenox [] Heparin [] SCDs [x] Encourage ambulation [] Already on Anticoagulation Advance Directive: Full Code Discharge planning: TBD Ann Reed MD Division of Hospitalist Medicine Inpatient Medical Services PAGER: [phone] * Moe Burns, PT - 05/05/2022 3:44 PM EDT Physical Therapy Facility/Department: [facility] Physical Therapy Daily Treatment Note Name: Kimberly Patel : 1955 Date of Service: 05/05/2022 Discharge Recommendations: Subacute/Penitentiary Facility Patient Diagnosis(es): The encounter diagnosis was [...] rapid fatigue. Pt wanting to get to [facility] but somewhat self limiting, fearful and declines [...] with any questions or concerns. Hema Carl, BUILDING INSPECTION ENGINEER, MANAGER PHARMACY [facility] [phone] I have reviewed the above assessment and plan with the EDUCATION AND DEVELOPMENT MANAGER. I agree with above note. * Ann Tripp RN - 05/04/2022 3:30 PM EDT Patient's assessment remains unchanged. She is sitting up comfortably in bed with no new issues or concerns. Will continue to monitor. * SÁNCHEZ Kate - 05/04/2022 3:13 PM EDT Occupational Therapy Facility/Department: [facility] Occupational Therapy Daily Treatment Note Name: [...] included. Hospitalist Progress Note 05/04/2022 2:02 PM [phone]: Please page me ([phone]) for patient care issues. [phone]: Please page [facility] night Hospitalist for any issues. Subjective: Admit [...] Patient refusing SNF, would prefer home with [facility]. Possible discharge in 48-72 hrs. -am labs, replace lytes prn -increase activity -DVT prophylaxis: [] Lovenox [] Heparin [] SCDs [x] Encourage ambulation [] Already on Anticoagulation Advance Directive: Full Code Discharge planning: TBD Ann Reed MD Division of Hospitalist Medicine Inpatient Medical Services PAGER: [phone] * Radha Costa MD - 05/04/2022 1:19 [...] non-oliguric, BP stable No acute need for CHARGE LPN at this time Avoid further IVF as [...] any questions or concerns. Hema Carl APRN, MANAGER PHARMACY [facility] [phone] I have reviewed the above assessment and plan with the EDUCATION AND DEVELOPMENT MANAGER. I agree with above note. * Carmen Talamantes, DO - 05/03/2022 2:43 PM EDT Images from the original note were not included. Hospitalist Progress Note 05/03/2022 [phone]: Please page [facility] night Hospitalist for any issues. Subjective: Admit Date: 04/30/2022 PCP: FRANKIE DENG MD Room#: 453/4538 Interval History: Patient seen and examined at [...] Patient refusing SNF, would prefer home with [facility]. Possible discharge in 48-72 hrs. -DVT prophylaxis: [] Lovenox [x] Heparin [] SCDs [x] Encourage ambulation [] Already on Anticoagulation Advance Directive: Full Code Discharge planning: TBRizwana Talamantes DO Division of Hospitalist Medicine Inpatient Medical Services/[facility] * Ana Lilia Zhu, OT - 05/03/2022 1:57 PM EDT Occupational Therapy Facility/Department: [facility] Daily Treatment Note NAME: Kimberly [...] Costa MD - 05/03/2022 11:03 AM EDT [facility] Progress Note Subjective/ 66 [...] non-oliguric, BP stable No acute need for CHARGE LPN at this time Avoid further IVF as [...] any questions or concerns. Hema Carl APRN, MANAGER PHARMACY [facility] [phone] I have reviewed the above assessment and plan with the EDUCATION AND DEVELOPMENT MANAGER. I agree with above note. Continue same Rx. * Didier Esquivel [facility] - 05/02/2022 11:57 PM EDT Pharmacy Vancomycin [...] were not included. Hospitalist Progress Note 05/02/2022 [phone]: Please page [facility] night Hospitalist for any issues. Subjective: Admit Date: 04/30/2022 PCP: Moe Meyer MD Room#: 514/6352 Interval History: Patient seen and examined at [...] planning: TBD Carmen Talamantes DO [facility] * Radha Costa MD - 05/02/2022 12:33 [...] non-oliguric, BP improving No acute need for CHARGE LPN at this time Stop IVF and resume [...] any questions or concerns. Hema Carl APRN, MANAGER PHARMACY [facility] [phone] Seen and examined. Agree with above A and P. Cr improving. Not tolerating much IVF, will stop IVF. Start low dose Lasix. * Vickey Donovan OT - 05/02/2022 10:21 AM EDT Occupational Therapy Facility/Department: [facility] Occupational Therapy Initial Assessment Name: Kimberly Patel : 1955 Date of Service: 05/02/2022 Discharge Recommendations: Subacute/Penitentiary Facility OT Equipment Recommendations Equipment Needed: (TBD [...] 1955 Date of Service: 05/02/2022 Discharge Recommendations: Subacute/Penitentiary Facility PT Equipment Recommendations Equipment Needed: No [...] Medium Complexity History: UTIs, CHF, COPD Exam: [facility] Clinical Presentation: Pt admitted 04/30 with UTI/sepsis. [...] were not included. Hospitalist Progress Note 05/01/2022 [phone]: Please page me ([phone]) for patient care issues. [phone]: Please page [facility] night Hospitalist for any issues. Subjective: Admit Date: 04/30/2022 PCP: Moe Meyer MD Room#: 389/9151 Interval History: No overnight issues. Feels slightly [...] MD Division of Hospitalist Medicine Inpatient Medical Services/[facility] PAGER: [phone] * Sravanthi Bal RN - 04/30/2022 10:14 PM EDT Pt stated that her charter coordinator allows only 64 oz of fluid per day due to heart failure. Updated physician, pt now has order for IV fluids. * Sravanthi Bal RN - 04/30/2022 7:45 PM EDT Patient admitted to room 453. Oriented to call system and visiting hours and meal times. No distress noted.Call Light within reach. documented in this [facility] Work Phone: [phone]) 422-371807-09-2022 Hospital Discharge instructions* Discharge Instr - Lab* Zelda Salazar LPN - 05/06/2022 7:33 PM EDT Your physician has ordered skilled home care services for you. Your home care will be provided by: [facility] [phone] * Additional Instructions* Carli Benites MD - 05/07/2022 Follow up with nephrology as scheduled documented in this encounterSUMIntern Work Phone: [phone]) 634-142206-17-2022 Miscellaneous Notes* Telephone Encounter - Frankie Deng [...] you, Susan Cuello PharmD documented in this encounterUniversity Hospitals Cleveland Medical Center06-17-2022 NoteHNO ID: [id number] Author: Susan Kehr, RPh Service: ? Author [...] (Dr. Deng), 03/22/22 [facility] (EDUCATION AND DEVELOPMENT MANAGER Shea Childers), 04/13/22 Kimberly Patel is a [...] (HF sodium-free diet); does reportedly lightly salt central african fries infrequently ? EXERCISE:?walks around inside of [...] (Obstructive Sleep Apnea) Chf (Congestive Heart Failure) ([facility]) Type 2 Diabetes Mellitus With Diabetic Polyneuropathy, With Long-Term Current Use of Insulin ([facility]) Coronary Arteriosclerosis in [place] Artery Bipolar Disorder ([facility]) Mixed Hyperlipidemia Class 3 Severe Obesity With Serious Comorbidity and Body Mass Index (Bmi) of 45.0 to 49.9 in Adult ([facility]) Chronic Respiratory Failure With Hypoxia ([facility]) Chronic Ob (more content not included)...[facility]06-17-2022 History of Present illness Narrative* Susan Cuello, [facility] - 04/14/2022 11:30 AM EDT Images from the original note were not included. Primary Care Pharmacy Visit Patient consents to pharmacy consult agreement. CC (Reason for Consult): Type 2 diabetes mellitus with diabetic polyneuropathy, with long-term current use of insulin ([facility]) - ICD9: 250.60, 357.2, V58.67, ICD10: E11.42, Z79.4 Goal: A1c <8% Last Collaborating Physician Visit: [facility] (Dr. Deng), 03/22/22 [facility] at Home (EDUCATION AND DEVELOPMENT MANAGER Shea Childers), 04/13/22 Kimberly Patel is a [...] (HF sodium-free diet); does reportedly lightly salt central african fries infrequently EXERCISE: walks around inside of [...] (Obstructive Sleep Apnea) Chf (Congestive Heart Failure) ([facility]) Type 2 Diabetes Mellitus With Diabetic Polyneuropathy, With Long-Term Current Use of Insulin ([facility]) Coronary Arteriosclerosis in [place] Artery Bipolar Disorder ([facility]) Mixed Hyperlipidemia Class 3 Severe Obesity With Serious Comorbidity and Body Mass Index (Bmi) of 45.0 to 49.9 in Adult ([facility]) Chronic Respiratory Failure With Hypoxia ([facility] [facility] [place] Chronic Obstructive Pulmonary Disease ([facility] [place]) Physical Debility Recurrent Uti (Urinary Tract Infection) Primary Hypertension Stage 3b Chronic Kidney Disease ([facility] [place]) Microalbuminuria Restrictive Lung Disease Chronic Heart Failure With Preserved Ejection Fraction (Hfpef) ([facility] [place]) Requires Assistance With Activities of Daily Living (Adl) Weakness of Both Legs Ddd (Degenerative Disc Disease), Lumbar Spondylolisthesis of Lumbar Region Trigger Middle Finger of Right Hand History of Covid-19 Slow Transit Constipation PAST MEDICAL HISTORY Diagnosis Date Asthma CAD (coronary artery disease) s/p stent. last one >5 years ago CHF (congestive heart failure) ([facility]) COPD (chronic obstructive pulmonary disease) ([facility]) DM2 (diabetes mellitus, type 2) ([facility]) HTN (hypertension) Mixed hyperlipidemia Pneumonia due to COVID-19 virus 10/13/2020 ALLERGIES Allergen Reactions Dilaudid [Hydromorp* Vomiting Jardiance [Empaglif* Other: See Comments UTI Metformin Diarrhea Morphine Vomiting Ondansetron Unknown Penicillins Rash Trulicity [Dulaglut* GI Upset Nausea/Vomiting MEDICATIONS/SUPPLIES: Pill bottles are not present. Adherence: reports missed doses. Organization System: [employer] Pill-pack for all oral meds (Divvy-Dose) Does the patient have diabetes supplies: Yes ? CGM = CryptoSeal 2; has mobile fern & reader device (via [employer]; $0 co-pay) In current transition to new CGM supply company --> [employer]... ? Glucometer = One touch ultra 2 ? Lancing Device [facility] [address] [place] [address] [address] [facility] [phone] ? Divvy-Dose for maintenance meds ? [facility] for [facility] and emergent / short term meds Rx coverage: Payor: [facility] MEDICARE / Plan: [facility] DUAL COMPLETE HMO SNP / Product Type: [...] MOUTH EVERY DAY flash glucose scanning reader ([employer] GBARIELLE 2 READER) 1 Each. Use as directed [...] CONTROL: Glucometer/CGM present at visit: Yes ; [employer] info shared remotely Summary of CGM Findings: [...] polyneuropathy, with long-term current use of insulin ([facility]) - ICD9: 250.60, 357.2, V58.67, ICD10: E11.42, [...] as indicated. Reviewed adhesive products to consider [id number] to aid in CGM wear longevity Discussed [...] you, Susan Cuello PharmD documented in this encounterUniversity Hospitals Cleveland Medical Center06-16-2022 NoteHNO ID: [id number] Author: Shea Childers APRN.MANAGER PHARMACY Service: ? Author Type: Nurse Practitioner Type: [...] Video Application used during encounter (i.e. specify [employer] Video Visit, [employer], [employer]): not applicable SERVICE DATE: 04/13/2022 ASSESSMENT IDENTIFICATION [...] polyneuropathy, with long-term current use of insulin ([facility]) - ICD9: 250.60, 357.2, V58.67, ICD10: E11.42, Z79.4 uncontrolled - Continue current medications -Patient is new to sd 3. Chronic heart failure with preserved ejection fraction (HFpEF) ([facility]) - ICD9: 428.9, ICD10: I50.32 Patient reports no size or symptoms of fluid overload -Continue current HF regimen -Discussed sodium restriction to less than 2 g per day -Discussed fluid restriction to less than 2000 cc per day -Discussed daily weight to call [facility] office 2 # gain in 24 [...] to call 911 and when to call [facility]. Shea Childers FOLLOW UP ([facility] [id number]) F/U preferably 6-8 weeks, at least within 12 wks; provider: Physician or Nurse Practitioner Schedule next visit as: In Person Face to Face visit DME/Supplies Needed: No SUBJECTIVE Chief Complaint: No chief complaint on file. HISTORY OF PRESENT ILLNESS By problem, patient and/or caregiver's concerns today are: Patient unable to do [id number]. There visit by telephone. Hospital follow-up for [...] The patient is not (more content not included)...[facility]06-16-2022 History of Present illness Narrative* Shea Childers APRN.MANAGER PHARMACY - 04/13/2022 8:20 AM EDT MEDICAL CARE [...] encounter (i.e. specify MyChart Video Visit, FaceTime, [employer]): not applicable SERVICE DATE: 04/13/2022 ASSESSMENT IDENTIFICATION [...] polyneuropathy, with long-term current use of insulin ([facility]) - ICD9: 250.60, 357.2, V58.67, ICD10: E11.42, Z79.4 uncontrolled - Continue current medications -Patient is new to sd 3. Chronic heart failure with preserved ejection fraction (HFpEF) ([facility]) - ICD9: 428.9, ICD10: I50.32 Patient reports no size or symptoms of fluid overload -Continue current HF regimen -Discussed sodium restriction to less than 2 g per day -Discussed fluid restriction to less than 2000 cc per day -Discussed daily weight to call [facility] office 2 # gain in 24 [...] to call 911 and when to call [facility]. Shea Childers FOLLOW UP ([facility] [address]) F/U preferably 6-8 weeks, at least within 12 wks; provider: Physician or Nurse Practitioner Schedule next visit as: In Person Face to Face visit DME/Supplies Needed: No SUBJECTIVE Chief Complaint: No chief complaint on file. HISTORY OF PRESENT ILLNESS By problem, patient and/or caregiver's concerns today are: Patient unable to do [id number]-oz-dhbg. There visit by telephone. Hospital follow-up for [...] Patel DATE: April 13, 2022 PAGER/CONTACT #: [phone] documented in this encounterUniversity Hospitals Cleveland Medical Center06-14-2022 Miscellaneous Notes* Telephone Encounter - Nanette Hager - 04/11/2022 8:24 AM EDT Please schedule a post ed visit Nanette Hager documented in this encounterUniversity Hospitals Cleveland Medical Center05-31-2022 Miscellaneous Notes* Telephone Encounter - [...] the question over to you. Rx #: [id number] Pharmacy comment: Script Clarification:DID THE MD WANT TO INCREASE THE DOSE UP TO 200U/ML FROM THE 100U/ML DOSE....THANKS. documented in this encounterUniversity Hospitals Cleveland Medical Center05-31-2022 Miscellaneous Notes* Telephone Encounter - Emerald Lovell MA - 03/28/2022 10:51 AM EDT I have faxed the orders and the visit notes to [facility] RT. Emerald Lovell CMA * [...] system and new rx for oxygen. Hema [phone] option 2 Clovis Alarcon documented in this encounterUniversity Hospitals Cleveland Medical Center05-31-2022 Miscellaneous Notes* Telephone Encounter - June Oro Ma - 03/28/2022 8:42 AM EDT The following lab order was sent via e-mail to [facility] on03/28/2022: PATIENT NAME: Kimberly Patel ADDRESS: [address] [place] [address] PHONE NUMBER: [phone] (home) [phone] (cell) DATE OF : 1955 [facility] ORDERING PROVIDER: Frankie Deng MD LAB TESTS: CBC- Diagnosis [E11.42, Z79.4] CMP - Diagnosis [E11.42, Z79.4] HgbA1C - Diagnosis [E11.42, Z79.4] Lipid panel Nonfasting - Diagnosis [E11.42, Z79.4] TSH - Diagnosis [I10] REQUESTED DATE OF COLLECTION: to be collected by 04/03 SPECIFIC SPECIMEN DRAW INFORMATION: N/A June Oro Ma documented in this encounterUniversity Hospitals Cleveland Medical Center05-26-2022 Miscellaneous Notes* Telephone Encounter - SAL Manuel - 03/23/2022 10:11 AM EDT Welcome Home Call: a. Date and Time: 10:11 AM 03/23/2022 b. Contact name/relationship: Kimberly caldwell.Have you been active with any Home Care company in the last 60 days? No. d. Are you interesting in initiated services with [facility]? yes (yes or no) e. [...] concerns in the meantime, our # is [phone], option 1 (need to confirm) Thank you for your time and have a great day. SAL Manuel documented in this encounterUniversity Hospitals Cleveland Medical Center05-25-2022 NoteHNO ID: [id number] Author: Susan Cuello [facility] Service: ? Author Type: Pharmacist Type: Progress [...] (HF sodium-free diet); does reportedly lightly salt [place] fries infrequently ? EXERCISE:?walks around inside of [...] (Obstructive Sleep Apnea) Chf (Congestive Heart Failure) ([facility] [place]) Type 2 Diabetes Mellitus With Diabetic Polyneuropathy, With Long-Term Current Use of Insulin ([facility] [place]) Coronary Arteriosclerosis in [place] Artery Bipolar Disorder ([facility] [place]) Mixed Hyperlipidemia Class 3 Severe Obesity With Serious Comorbidity and Body Mass Index (Bmi) of 45.0 to 49.9 in Adult ([facility] [place]) Chronic Respiratory Failure With Hypoxia ([facility] [place]) Chronic Obstr (more content not included)...[facility]05-25-2022 NoteHNO ID: [id number] Author: Frankie Deng MD Service: ? Author [...] polyneuropathy, with long-term current use of insulin ([facility]) - ICD9: 250.60, 357.2, V58.67, ICD10: E11.42, Z79.4 (primary diagnosis) Uncontrolled. 07/2021 A1c 10.8. Goal is 6.5-7.0. - Continue current medications - Surveillance labs - Pharmacist is working with pt in program to adjust insulins to improve BS control. - CONSULT TO [facility] - PREGABALIN 75 MG CAPSULE [...] D. 3. Chronic respiratory failure with hypoxia ([facility]) - ICD9: 518.83, 799.02, ICD10: J96.11 Review of 2012 spirometry shows restrictive lung disease. Suspect hypoventilation of morbid obesity contributes. - Performed oximetry to demonstrate continued need for O2. - CONSULT TO [facility] - OXYGEN CONCENTRATOR - PORTABLE OXYGEN 4. Restrictive lung disease - ICD9: 518.89, ICD10: J98.4 Cannot obtain weight due to debility. See above. Suspect hypoventilation of morbid obesity. - Will benefit from weight loss. - OXYGEN CONCENTRATOR - PORTABLE OXYGEN 5. Chronic heart failure with preserved ejection fraction (HFpEF) ([facility]) - ICD9: 428.9, ICD10: I50.32 Mild pulm HTN likely related to restrictive lung dz. Low normal EF related to effects of prior [place]. May contribute to hypoxia and debility. - [...] Morbid obesity with BMI of 45.0-49.9, adult ([facility]) - ICD9: 278.01, V85.42, ICD10: E66.01, Z68.42 Will benefit from weight loss - Currently no home-based resource available for weight loss counseling. - OXYGEN CONCENTRATOR - PORTABLE OXYGEN 7. Recurrent UTI (urinary tract infection) - ICD9: 599.0, ICD10: N39.0 States she has no si/sx when she has UTI. - Pt tolerates cephalosporins for empirical treatment. - Informed pt to call [facility] if any suspicion of UTI so that treatment can be started LALA - Patient education for prevention given 8. Primary hypertension - ICD9: 401.9, ICD10: I10 - good control - Continue current medication(s) - Goal of BP <130/80 - TSH BLD 9. Coronary artery disease involving [place] heart without angina pectoris, unspecified vessel or lesion type - ICD9: 414.01, ICD10: I25.10 Hx of [place]. Contributor to debility. - Continue CVD event risk reduction regimen. - CONSULT TO [facility] 10. Mixed hyperlipidemia - ICD9: [...] heart, lung, obesity dz. - CONSULT TO [facility] 13. Weakness of both legs - ICD9: 729.89, ICD10: R29.898 Desuetude and OA contribute. - PT. - CONSULT TO [facility] 14. DDD (degenerative disc disease), lumbar - ICD9: 722.52, ICD10: M51.36 Contributes to decreased mobility. Pain inhibits st (more content not included)...[facility]05-25-2022 History of Present illness Narrative* Susan Cuello, [facility] - 03/22/2022 11:00 AM EDT Images from [...] (HF sodium-free diet); does reportedly lightly salt [place] fries infrequently EXERCISE: walks around inside of [...] (Obstructive Sleep Apnea) Chf (Congestive Heart Failure) ([facility] [place]) Type 2 Diabetes Mellitus With Diabetic Polyneuropathy, With Long-Term Current Use of Insulin ([facility] [place]) Coronary Arteriosclerosis in [place] Artery Bipolar Disorder ([facility] [place]) Mixed Hyperlipidemia Class 3 Severe Obesity With Serious Comorbidity and Body Mass Index (Bmi) of 45.0 to 49.9 in Adult ([facility] [place]) Chronic Respiratory Failure With Hypoxia ([facility] [place]) Chronic Obstructive Pulmonary Disease ([facility] [place]) Physical Debility Recurrent Uti (Urinary Tract Infection) Primary Hypertension Stage 3b Chronic Kidney Disease ([facility] [place]) Microalbuminuria PAST MEDICAL HISTORY Diagnosis Date Asthma CAD (coronary artery disease) s/p stent. last one >5 years ago CHF (congestive heart failure) ([facility]) COPD (chronic obstructive pulmonary disease) ([facility]) DM2 (diabetes mellitus, type 2) ([facility]) HTN (hypertension) Mixed hyperlipidemia Pneumonia due to COVID-19 virus 10/13/2020 ALLERGIES Allergen Reactions Dilaudid [Hydromorp* Vomiting Jardiance [Empaglif* Other: See Comments UTI Metformin Diarrhea Morphine Vomiting Ondansetron Unknown Penicillins Rash Trulicity [Dulaglut* GI Upset Nausea/Vomiting MEDICATIONS/SUPPLIES: Pill bottles are not present. Adherence: denies missed doses. Organization System: [facility] Pill-pack for all oral meds (Divvy-Dose) Does [...] had 6 mm size) [id number] [place] [address] - [address] - [phone] ? Divvy-Dose for maintenance meds ? [facility] for [facility] and emergent / short term meds Rx coverage: Payor: [facility] MEDICARE / Plan: [facility] DUAL COMPLETE HMO SNP / Product Type: [...] GLYCEMIC CONTROL: Glucometer/CGM present at visit: Yes; CryptoSeal 2 info shared remotely Summary of CGM [...] Not calculated The 10-year ASCVD risk score ([place] Point[place] MORGAN Jr., et al., 2013) is: 11.6% [...] data shows minimal data as was only sarlir06% of the time in the past 2 [...] you, Susan Cuello, PharmRizwana documented in this encounterUniversity Hospitals Cleveland Medical Center05-25-2022 History of Present illness Narrative* [...] to improve BS control. - CONSULT TO [facility] - PREGABALIN 75 MG CAPSULE [...] continued need for O2. - CONSULT TO [facility] - OXYGEN CONCENTRATOR - PORTABLE OXYGEN 4. Restrictive lung disease - ICD9: 518.89, ICD10: J98.4 Cannot obtain weight due to debility. See above. Suspect hypoventilation of morbid obesity. - Will benefit from weight loss. - OXYGEN CONCENTRATOR - PORTABLE OXYGEN 5. Chronic heart failure with preserved ejection fraction (HFpEF) ([facility]) - ICD9: 428.9, ICD10: I50.32 Mild pulm HTN likely related to restrictive lung dz. Low normal EF related to effects of prior [place]. May contribute to hypoxia and debility. - [...] Morbid obesity with BMI of 45.0-49.9, adult ([facility]) - ICD9: 278.01, V85.42, ICD10: E66.01, Z68.42 Will benefit from weight loss - Currently no home-based resource available for weight loss counseling. - OXYGEN CONCENTRATOR - PORTABLE OXYGEN 7. Recurrent UTI (urinary tract infection) - ICD9: 599.0, ICD10: N39.0 States she has no si/sx when she has UTI. - Pt tolerates cephalosporins for empirical treatment. - Informed pt to call [facility] if any suspicion of UTI so that treatment can be started LALA - Patient education for prevention given 8. Primary hypertension - ICD9: 401.9, ICD10: I10 - good control - Continue current medication(s) - Goal of BP <130/80 - TSH BLD 9. Coronary artery disease involving [place] heart without angina pectoris, unspecified vessel or lesion type - ICD9: 414.01, ICD10: I25.10 Hx of [place]. Contributor to debility. - Continue CVD event risk reduction regimen. - CONSULT TO [facility] 10. Mixed hyperlipidemia - ICD9: [...] heart, lung, obesity dz. - CONSULT TO [facility] 13. Weakness of both legs - ICD9: 729.89, ICD10: R29.898 Desuetude and OA contribute. - PT. - CONSULT TO [facility] 14. DDD (degenerative disc disease), [...] vaccine administered this visit? NO Previously received [facility] Orders (for patients currently active with Home Care): Physical Therapy eval for immobility Visit billing based on time: Yes, greater than 50% of the face to face time is on counseling and/orcare coordination, total minutes 110, counseling and/or care coordination included 100. FOLLOW UP ([facility] [address]) F/U preferably 6-8 weeks, at least within [...] UTIs. Tests periodically with Azo strips. Has CHEFS starting. PT has not started. Needs PT. Needs O2 testing. Has hx of HF. Cannot stand long enough to get weights. Has recurrent LE cellulitis. Restricted to 1500 ml daily. Hx of [place] with stents. Pt has chronic back pain. Has DDD and spondylolisthesis. Pt had attended pain clinic. Had been treated with [place]. Sleep is fair. Has DIYA; cannot tolerate [...] from a helper. Setup or clean-up assistance [place] SETS UP or CLEANS UP; patient completes activity. [place] assists only prior to or following the activity. Supervision/touching assistance-[place] provides VERBAL CUES or TOUCHING/STEADYING assistance as patient completes activity. Assistance may be provided throughout the activity or intermittently. Partial/Moderate Assistance-[place] does LESS THAN HALF the effort. [place] lifts, holds or supports trunk or limbs, but provides less than half the effort. Substantial/Maximal Assistance [place] does MORE THAN HALF the effort. [place] lifts or holds trunk or limbs, but provides more than half the effort. Dependent - [place] does ALL of the effort. Patient does [...] Patel DATE: March 22, 2022 PAGER/CONTACT #: [phone] documented in this encounterUniversity Hospitals Cleveland Medical Center05-23-2022 Miscellaneous Notes* Telephone Encounter - [...] and advise. Agustin Rivera documented in this encounterUniversity Hospitals Cleveland Medical Center05-12-2022 Miscellaneous Notes* Telephone Encounter - KRISTIN Louis - 03/09/2022 2:12 PM EDT [facility] Respiratory is currently [...] wearing oxygen. You can add the SmartText '[id number]' to your office note to meet the [...] can continue processing your request. Thank you, [facility] [phone] fax documented in this encounterUniversity Hospitals Cleveland Medical Center05-12-2022 Miscellaneous Notes* Telephone Encounter - [...] you, Susan Cuello PharmD documented in this encounterUniversity Hospitals Cleveland Medical Center05-11-2022 NoteHNO ID: [id number] Author: Susan Cuello RPh Service: ? Author [...] (HF sodium-free diet); does reportedly lightly salt [place] fries infrequently ? EXERCISE:?walks around inside of [...] (Obstructive Sleep Apnea) Chf (Congestive Heart Failure) ([facility] [place]) Type 2 Diabetes Mellitus With Diabetic Polyneuropathy, With Long-Term Current Use of Insulin ([facility] [place]) Coronary Arteriosclerosis in [place] Artery Bipolar Disorder ([facility] [place]) Mixed Hyperlipidemia Class 3 Severe Obesity With Serious Comorbidity and Body Mass Index (Bmi) of 45.0 to 49.9 in Adult ([facility] [place]) Chronic Respiratory Failure With Hypoxia ([facility] [place]) Chronic Obstructive Pulmonary Disease ([facility] [place]) Physical Debility Recurrent Uti (Urinary Tract Infection) Primary Hypertension Stage 3b Chronic Kidney Disease ([facility] [place]) Microalbuminuria PAST MEDICAL HISTORY Diagnosis Date - Asthma - CAD (coronary artery disease) s/p stent. last one >5 years ago - CHF (congestive heart failure) ([facility]) - COPD (chronic obstructive pulmonary disease) ([facility]) - DM2 (diabetes mellitus, type 2) ([facility]) - HTN (hypertension) - Mixed hyperlipidemia - Pneumonia due to COVID-19 virus 10/13/2020 ALLERGIES Allergen Reactions - Dilaudid [Hydromorp* Vomiting - Jardiance [Empaglif* Other: See Comments UTI - Metformin Diarrhea - Morphine Vomiting - Ondansetron Unknown - Penicillins Rash - Trulicity [Dulaglut* GI Upset Nausea/Vomiting MEDICATIONS/SUPPLIES: - Pill bottles are not present. - Adherence: denies missed doses. ? Organization System:?[facility] Pill-pack for all oral meds?(Divvy-Dose) ? Does the patient have diabetes supplies:?Yes ? CGM = [employer] 2; has mobile fern AND?reader device (via [employer]; $0 co (more content not included)...[facility] 03-08-2022 History of Present illness Narrative* Susan Kehr, [facility] - 03/08/2022 11:00 AM EDT Images from the original note were not included. Primary Care Pharmacy Visit Patient consents to pharmacy consult agreement. CC (Reason for Consult): Type 2 diabetes mellitus with diabetic polyneuropathy, with long-term current use of insulin ([facility]) - ICD9: 250.60, 357.2, V58.67, ICD10: E11.42, [...] (HF sodium-free diet); does reportedly lightly salt [place] fries infrequently EXERCISE: walks around inside of [...] (Obstructive Sleep Apnea) Chf (Congestive Heart Failure) ([facility] [place]) Type 2 Diabetes Mellitus With Diabetic Polyneuropathy, With Long-Term Current Use of Insulin ([facility] [place]) Coronary Arteriosclerosis in [place] Artery Bipolar Disorder ([facility] [place]) Mixed Hyperlipidemia Class 3 Severe Obesity With Serious Comorbidity and Body Mass Index (Bmi) of 45.0 to 49.9 in Adult ([facility] [place]) Chronic Respiratory Failure With Hypoxia ([facility] [place]) Chronic Obstructive Pulmonary Disease ([facility] [place]) Physical Debility Recurrent Uti (Urinary Tract Infection) Primary Hypertension Stage 3b Chronic Kidney Disease ([facility]) Microalbuminuria PAST MEDICAL HISTORY Diagnosis Date Asthma CAD (coronary artery disease) s/p stent. last one >5 years ago CHF (congestive heart failure) ([facility]) COPD (chronic obstructive pulmonary disease) ([facility]) DM2 (diabetes mellitus, type 2) ([facility]) HTN (hypertension) Mixed hyperlipidemia Pneumonia due to COVID-19 virus 10/13/2020 ALLERGIES Allergen Reactions Dilaudid [Hydromorp* Vomiting Jardiance [Empaglif* Other: See Comments UTI Metformin Diarrhea Morphine Vomiting Ondansetron Unknown Penicillins Rash Trulicity [Dulaglut* GI Upset Nausea/Vomiting MEDICATIONS/SUPPLIES: Pill bottles are not present. Adherence: denies missed doses. Organization System: [employer] Pill-pack for all oral meds (Divvy-Dose) Does the patient have diabetes supplies: Yes ? CGM = BuzzStartere 2; has mobile fern & reader device (via [employer]; $0 co-pay) In current transition to new CGM supply company --> [employer]... ? Glucometer = One touch ultra 2 ? Lancing Device = [facility] generic ? Pen needles = BD uf micropen needles 5 mm, 32 gauge (previously had 6 mm size) Pharmacy: [facility] [address] [place] [address] - [address] - [phone] ? Divvy-Dose for maintenance meds ? [facility] insulins and emergent / short term meds Rx coverage: Payor: [facility] MEDICARE / Plan: [facility] DUAL COMPLETE HMO SNP / Product Type: [...] GLYCEMIC CONTROL: Glucometer/CGM present at visit: Yes; CryptoSeal 2 info shared remotely Summary of CGM [...] polyneuropathy, with long-term current use of insulin ([facility]) - ICD9: 250.60, 357.2, V58.67, ICD10: E11.42, [...] you, Susan Cuello PharmD documented in this encounterUniversity Hospitals Cleveland Medical Center05-03-2022 Miscellaneous Notes* Telephone Encounter - [...] - 02/28/2022 4:02 PM EDT Patient requesting Susna call her directly, please advise. documented in this encounterUniversity Hospitals Cleveland Medical Center05-02-2022 Instructions* Patient Instructions* Deniz Silva [...] your risk for heart failure. Developed by [employer]. Published by [employer]. Copyright 2014 [employer] and/or one of its subsidiaries. All rights reserved. documented in this encounterUniversity Hospitals Cleveland Medical Center05-02-2022 History of Present illness Narrative* Deniz Silva MD - 02/27/2022 2:06 PM EDT Images from the original note were not included. [facility] Virtual Visit EST Date: February 27, 2022 [...] routine follow-up. Patient was previously followed at [facility] but established care with sd in December 2020 after moving to the [facility]. Since her initial visit in December 2020, patient was hospitalized at [facility] in September 2021 with weakness and lethargy [...] therapy. She does not currently have a grants manager and has held off at this time [...] >5 years ago CHF (congestive heart failure) ([facility]) COPD (chronic obstructive pulmonary disease) ([facility]) DM2 (diabetes mellitus, type 2) ([facility]) HTN (hypertension) Mixed hyperlipidemia Pneumonia due to [...] blood sugars 3 times daily. Scan FreeStyle Gbarielle 2 sensors at [...] routine follow-up. Patient was previously followed at [facility] but established care with me in December 2020 after moving to the [facility]. PLAN AND RECOMMENDATIONS: 1. Chronic diastolic [...] leave the house to establishcare with a grants manager for further evaluation. Some elements of A&P [...] answered. Deniz Silva MD documented in this encounterUniversity Hospitals Cleveland Medical Center05-02-2022 Miscellaneous Notes* Telephone Encounter - Ellie Walters MA - 02/27/2022 1:57 PM EDT Per patient request I contacted [facility] which is like a pill pack pharmacy and advised them per Dr Silva that patient is no longer needing plavix and was discontinued today and to remove from pill pack. Spoke with Viji at [facility] and she was able to remove plavix from pill package. documented in this encounterUniversity Hospitals Cleveland Medical Center05-02-2022 Nurse Note* Ellie Walters MA - 02/27/2022 11:58 AM EDT Patient has no cardiac complaints today. Ellie Walters CMA documented in this [facility]04-29-2022 Miscellaneous Notes* Telephone Encounter - Renee Walters LPN - 02/24/2022 9:30 AM EDT Patient's request for medication is as follows: Pending Prescriptions Disp Refills EZETIMIBE 10 MG TABLET 90 tablet 0 Sig: TAKE 1 TABLET BY MOUTH EVERY DAY PETE: Yes Last visit 02/21/2021. Next visit 02/27/2022 phone call visit. Prescription(s) as above. Please process accordingly. Renee Walters LPN documented in this [facility]04-25-2022 Miscellaneous Notes* Telephone Encounter - Lurdes Tovar [...] advise. Lurdes Tovar Ma documented in this encounterUniversity Hospitals Cleveland Medical Center04-20-2022 NoteHNO ID: [id number] Author: Susan Cuello RPh Service: ? Author [...] (HF sodium-free diet); does reportedly lightly salt central african fries infrequently ? EXERCISE:?walks around inside of [...] (Obstructive Sleep Apnea) Chf (Congestive Heart Failure) ([facility]) Type 2 Diabetes Mellitus With Diabetic Polyneuropathy, With Long-Term Current Use of Insulin ([facility]) Coronary Arteriosclerosis in [place] Artery Bipolar Disorder ([facility]) Mixed Hyperlipidemia Class 3 Severe Obesity With Serious Comorbidity and Body Mass Index (Bmi) of 45.0 to 49.9 in Adult ([facility]) Chronic Respiratory Failure With Hypoxia ([facility]) Chronic Obstructive Pulmonary Disease ([facility]) Physical Debility Recurrent Uti (Urinary Tract Infection) Primary Hypertension Stage 3b Chronic Kidney Disease ([facility]) Microalbuminuria PAST MEDICAL HISTORY Diagnosis Date - Asthma - CAD (coronary artery disease) s/p stent. last one >5 years ago - CHF (congestive heart failure) ([facility]) - COPD (chronic obstructive pulmonary disease) ([facility]) - DM2 (diabetes mellitus, type 2) ([facility]) - HTN (hypertension) - Mixed hyperlipidemia - [...] per week with a meal ? Organization System:?[facility] Pill-pack for all oral meds?(Divvy-Dose) ? Does the patient have diabetes supplies:?requesting new test strips ? CGM = Free (more content not included)...[facility]04-20-2022 History of Present illness Narrative* Susan Cuello, [facility] - 02/15/2022 9:30 AM EDT Images from [...] (HF sodium-free diet); does reportedly lightly salt central african fries infrequently EXERCISE: walks around inside of [...] (Obstructive Sleep Apnea) Chf (Congestive Heart Failure) ([facility]) Type 2 Diabetes Mellitus With Diabetic Polyneuropathy, With Long-Term Current Use of Insulin ([facility]) Coronary Arteriosclerosis in [place] Artery Bipolar Disorder ([facility]) Mixed Hyperlipidemia Class 3 Severe Obesity With Serious Comorbidity and Body Mass Index (Bmi) of 45.0 to 49.9 in Adult ([facility]) Chronic Respiratory Failure With Hypoxia ([facility]) Chronic Obstructive Pulmonary Disease ([facility]) Physical Debility Recurrent Uti (Urinary Tract Infection) Primary Hypertension Stage 3b Chronic Kidney Disease ([facility]) Microalbuminuria PAST MEDICAL HISTORY Diagnosis Date Asthma CAD (coronary artery disease) s/p stent. last one >5 years ago CHF (congestive heart failure) (HCC) COPD (chronic obstructive pulmonary disease) (HCC) DM2 (diabetes mellitus, type 2) ([facility]) HTN (hypertension) Mixed hyperlipidemia Pneumonia due to COVID-19 virus 10/13/2020 ALLERGIES Allergen Reactions Dilaudid [Hydromorp* Vomiting Jardiance [Empaglif* Other: See Comments UTI Metformin Diarrhea Morphine Vomiting Ondansetron Unknown Penicillins Rash Trulicity [Dulaglut* GI Upset Nausea/Vomiting MEDICATIONS/SUPPLIES: Pill bottles are not present. Adherence: reports missed doses. o Reports missing Humalog ~1-2 times per week with a meal Organization System: [employer] Pill-pack for all oral meds (Divvy-Dose) Does the patient have diabetes supplies: requesting new test strips ? CGM = [employer] Gabrielle 2; has mobile fern & reader device (via [employer]; $0 co-pay) In current transition to new CGM supply company --> [employer]... ? Glucometer = One touch ultra 2 ? Lancing Device = [facility] generic ? Pen needles = BD uf micropen needles 5 mm, 32 gauge (previously had 6 mm size) Pharmacy: e- [id number] [place] [address] - [address] - [phone] ? Divvy-Dose for maintenance meds ? [facility] emergent / short term meds Rx coverage: Payor: [facility] MEDICARE / Plan: [facility] DUAL COMPLETE HMO SNP / Product Type: [...] Take 1 tablet by mouth once daily. Syafgzlxgtgcg-Egxxwkoo-Vdnjoj (MULTIVITAMIN 50 PLUS) tab Take 1 tablet [...] you, Susan Cuello PharmD documented in this encounterUniversity Hospitals Cleveland Medical Center04-05-2022 NoteHNO ID: [id number] Author: Susan Cuello RPh Service: ? Author [...] insurance has not yet received info from [employer] re: CGM status. Chart notes were previously sent. Pt advised to f/u with [employer]. - 01/18/22 - Cardio nurse visit - 01/17/22 - [employer] advised pharmD that appeal was done for pts novolog and approved until 2021. SUBJECTIVE: - Reports her CGM sensors were approved and [employer] mailed these o Has not yet been [...] (HF sodium-free diet); does reportedly lightly salt central african fries infrequently ? EXERCISE:?walks around inside of [...] (Obstructive Sleep Apnea) Chf (Congestive Heart Failure) ([facility]) Type 2 Diabetes Mellitus With Diabetic Polyneuropathy, With Long-Term Current Use of Insulin ([facility]) Coronary Arteriosclerosis in [place] Artery Bipolar Disorder ([facility]) Mixed Hyperlipidemia Class 3 Severe Obesity With Serious Comorbidity and Body Mass Index (Bmi) of 45.0 to 49.9 in Adult ([facility]) Chronic Respiratory Failure With Hypoxia ([facility]) Chronic Obstructive Pulmonary Disease ([facility]) Physical Debility Recurrent Uti (Urinary Tract Infection) Primary Hypertension Stage 3b Chronic Kidney Disease ([facility]) Microalbuminuria PAST MEDICAL HISTORY Diagnosis Date - Asthma - CAD (coronary artery disease) s/p stent. last one >5 years ago - CHF (congestive heart failure) ([facility]) - COPD (chronic obstructive pulmonary disease) ([facility]) - DM2 (diabetes mellitus, type 2) ([facility]) - HTN (hypertension) - Mixed hyperlipidemia - Pneumonia due to COVID-19 virus 10/13/2020 ALLERGIES Allergen Reactions - Dilaudid [Hydromorp* Vomiting - Jardiance [Empaglif* Other: See Comments U (more content not included)...[facility]04-05-2022 Miscellaneous Notes* Telephone Encounter - Scarlet Morse [...] and advise. Moe Sawyer documented in this encounterUniversity Hospitals Cleveland Medical Center03-28-2022 Miscellaneous Notes* Telephone Encounter - Suasn Cuello [facility] - 01/23/2022 4:30 PM EDT Pt contacted office requesting to speak with pharmD (myself) directly. Returned pt's call who provided an update that her insurance has not yet received CGM request from [employer]. Advised pt that her recent chart notes were faxed to [employer] by both myself and Dr. Meyer's office on 01/06/22 and 01/12/22, respectively. Encouraged pt to contact [employer] as they may be awaiting confirmation from her (phone: ) of which she plans to do at this time. Thank you, Susan Cuello, PharmD documented in this encounterUniversity Hospitals Cleveland Medical Center03-23-2022 Nurse Note* Travis House, RN - 01/18/2022 8:31 AM EDT Heart [facility] Telephone Visit: Kimberly Ptael has consented to this tele-health visit. She is unable to leave the house d/t deconditioning and poor mobility. She is scheduled with Dr. Deng, Mobile visit on 02/03/22. Per patient, states that she was recently at [facility], treated for UTI. Her Lasix was previously [...] at discharge/last visit 273? When discharged from [facility] Weight today N/A Do you have any [...] directed? Yes Have you been maintaining a 7608-1632 mg of sodium diet? No, fast food, [...] 18, 2022 8:31 AM documented in this encounterUniversity Hospitals Cleveland Medical Center03-18-2022 NoteHNO ID: [id number] Author: Susan Cuello RPh Service: ? Author [...] faxed to pt's new CGM supply company, [employer] SUBJECTIVE: - Doing well - Reports starting [...] (HF sodium-free diet); does reportedly lightly salt central african fries infrequently ? EXERCISE:?walks around inside of [...] (Obstructive Sleep Apnea) Chf (Congestive Heart Failure) ([facility]) Type 2 Diabetes Mellitus With Diabetic Polyneuropathy, With Long-Term Current Use of Insulin ([facility]) Coronary Arteriosclerosis in [place] Artery Bipolar Disorder ([facility]) Mixed Hyperlipidemia Class 3 Severe Obesity With Serious Comorbidity and Body Mass Index (Bmi) of 45.0 to 49.9 in Adult ([facility]) Chronic Respiratory Failure With Hypoxia ([facility]) Chronic Obstructive Pulmonary Disease ([facility]) Physical Debility Recurrent Uti (Urinary Tract Infection) Primary Hypertension Stage 3b Chronic Kidney Disease ([facility]) Microalbuminuria PAST MEDICAL HISTORY Diagnosis Date - Asthma - CAD (coronary artery disease) s/p stent. last one >5 years ago - CHF (congestive heart failure) ([facility]) - COPD (chronic obstructive pulmonary disease) ([facility]) - DM2 (diabetes mellitus, type 2) ([facility]) - HTN (hypertension) - Mixed hyperlipidemia - Pneumonia due to COVID-19 virus 10/13/2020 ALLERGIES Allergen Reactions - Dilaudid [Hydromorp* Vomiting - Jardiance [Empaglif* Other: See Comments UTI - Metformin Diarrhea - Morphine Vomiting - Ondansetron Unknown - Penicillins Rash - Trulicity [Dulaglut* GI Upset Nausea/Vomiting MEDICATIONS/SUPPLIES: - Pill bottles are not present. - Adherence: denies missed doses. ? Org (more content not included)...[facility]03-11-2022 NoteHNO ID: [id number] Author: Susan Cuello [facility] Service: ? Author Type: Pharmacist Type: Progress [...] done fingerpricks since then. (previously obtained via [employer]). States an order is currently in process via [facility] (or [facility]); pt not certain of which company. [...] (HF sodium-free diet); does reportedly lightly salt central african fries infrequently ? EXERCISE:?walks around inside of [...] history reviewed and updated. ACTIVE PROBLEM LIST Idya (Obstructive Sleep Apnea) Chf (Congestive Heart Failure) ([facility]) Type 2 Diabetes Mellitus With Diabetic Polyneuropathy, With Long-Term Current Use of Insulin ([facility]) Coronary Arteriosclerosis in [place] Artery Bipolar Disorder ([facility]) Mixed Hyperlipidemia Class 3 Severe Obesity With Serious Comorbidity and Body Mass Index (Bmi) of 45.0 to 49.9 in Adult ([facility]) Chronic Respiratory Failure With Hypoxia ([facility]) Chronic Obstructive Pulmonary Disease ([facility]) Physical Debility Recurrent Uti (Urinary Tract Infection) Primary Hypertension Stage 3b Chronic Kidney Disease ([facility]) Microalbuminuria PAST MEDICAL HISTORY Diagnosis Date - Asthma - CAD (coronary artery disease) s/p stent. last one >5 years ago - CHF (congestive heart failure) ([facility]) - COPD (chronic obstructive pulmonary disease) ([facility]) - DM2 (diabetes mellitus, type 2) ([facility]) - HTN (hypertension) - Mixed hyperlipidemia - Pneumonia due to COVID-19 virus 10/13/2020 ALLERGIES Allergen Reactions - Dilaudid [Hydromorp* Vomiting - Jardiance [Empaglif* Other: See Comments UTI - Metformin Diarrhea - Morphine Vomiting - Ondansetron Unknown - Penicillins Rash - Trulicity [Dulaglut* GI Upset Nausea/Vomiting MEDICATIONS/SUPPLIES: - Pill bottles are not present. - Adherence: reports mi (more content not included)...[facility] 12-19-2021 NoteHNO ID: [id number] Author: Meo Meyer MD Service: ? Author Type: Physician [...] go to her home - CONSULT TO [facility] 2. Recurrent UTI (urinary tract [...] ICD9: 799.3, ICD10: R53.81 - CONSULT TO [facility] - CONSULT TO [facility] 5. Generalized weakness - ICD9: 780.79, ICD10: R53.1 6. Class 3 severe obesity due to excess calories with serious comorbidity and body mass index (BMI) of 45.0 to 49.9 in adult (HCC) - ICD9: 278.01, V85.42, ICD10: E66.01, Z68.42 - CONSULT TO [facility] - CONSULT TO [facility] 7. Chronic respiratory failure with hypoxia (HCC) - ICD9: 518.83, 799.02, ICD10: J96.11 Need o2 recertification LALA - CONSULT TO [facility] 8. Chronic combined systolic and diastolic congestive heart failure (HCC) - ICD9: 428.42, 428.0, ICD10: I50.42 - CONSULT TO [facility] Time spent: 35 mins There are no Patient Instructions on file for this visit. Moe Meyer [facility]02-18-2022 NoteHNO ID: [id number] Author: Susan Cuello [facility] Service: ? Author Type: Pharmacist Type: Progress [...] Recheck A1c ordered SUBJECTIVE: - Now using [employer] mobile fern as reader device; her daughter [...] (HF sodium-free diet); does reportedly lightly salt central african fries infrequently ? EXERCISE:?walks around inside of [...] Sleep Apnea) Dyspnea Chf (Congestive Heart Failure) ([facility]) Type 2 Diabetes Mellitus With Diabetic Polyneuropathy, With Long-Term Current Use of Insulin ([facility]) Lower Extremity Cellulitis Coronary Arteriosclerosis in [place] Artery Bipolar Disorder ([facility]) Mixed Hyperlipidemia Morbid Obesity Due to Excess Calories ([facility]) Acute Kidney Injury Superimposed On Chronic Kidney Disease ([facility]) Class 3 Severe Obesity With Serious Comorbidity and Body Mass Index (Bmi) of 45.0 to 49.9 in Adult ([facility]) Chronic Respiratory Failure With Hypoxia ([facility]) Chronic Obstructive Pulmonary Disease ([facility]) Physical Debility Uti (Urinary Tract Infection) Bacteremia Neuropathy Primary Hypertension Stage 3b Chronic Kidney Disease ([facility]) Microalbuminuria PAST MEDICAL HISTORY Diagnosis Date - Asthma - CAD (coronary artery disease) s/p stent. last one >5 years ago - CHF (congestive heart failure) ([facility]) - COPD (chronic obstructive pulmonary disease) ([facility]) - DM2 (diabetes mellitus, type 2) ([facility]) - HTN (hypertension) - Mixed hyperlipidemia - [...] patient have diabetes supplies:?Yes ? CGM = [employer] Libr (more content not included)...[facility] 10-12-2021 History of Past illness Narrative* Problem [...] of this encounter (statuses as of 01/19/2022) [facility] of Past illness Narrative* [...] of this encounter (statuses as of 01/23/2022) [facility] of Past illness Narrative* [...] of this encounter (statuses as of 01/31/2022) [facility] of Past illness Narrative* [...] of this encounter (statuses as of 02/15/2022) [facility] Narrative* [...] of this encounter (statuses as of 02/20/2022) [facility] Narrative* [...] of this encounter (statuses as of 02/24/2022) [facility] of Past illness Narrative* [...] of this encounter (statuses as of 02/27/2022) [facility] of Past illness Narrative* [...] of this encounter (statuses as of 02/27/2022) [facility] of Past illness Narrative* [...] of this encounter (statuses as of 02/28/2022) [facility] Past illness Narrative* [...] of this encounter (statuses as of 03/08/2022) [facility] Past illness Narrative* [...] of this encounter (statuses as of 03/09/2022) [facility] illness Narrative* [...] of this encounter (statuses as of 03/09/2022) [facility] Narrative* [...] of this encounter (statuses as of 03/22/2022) [facility] illness Narrative* [...] of this encounter (statuses as of 03/23/2022) [facility] illness Narrative* [...] of this encounter (statuses as of 03/24/2022) [facility] Narrative* [...] of this encounter (statuses as of 03/25/2022) [facility] Narrative* [...] of this encounter (statuses as of 03/28/2022) [facility] illness Narrative* [...] of this encounter (statuses as of 03/28/2022) [facility] Narrative* [...] of this encounter (statuses as of 04/11/2022) [facility] Narrative* [...] of this encounter (statuses as of 04/13/2022) [facility] Narrative* [...] of this encounter (statuses as of 04/14/2022) [facility] Narrative* [...] of this encounter (statuses as of 04/17/2022) [facility] Narrative* [...] of this encounter (statuses as of 05/10/2022) [facility] Narrative* [...] of this encounter (statuses as of 05/13/2022) [facility] Narrative* [...] of this encounter (statuses as of 05/24/2022) [facility] Narrative* [...] of this encounter (statuses as of 05/30/2022) [facility] Narrative* [...] of this encounter (statuses as of 06/09/2022) [facility] Narrative* [...] of this encounter (statuses as of 06/26/2022) [facility] Narrative* [...] of this encounter (statuses as of 06/26/2022) [facility] Narrative* [...] of this encounter (statuses as of 06/26/2022) [facility] Narrative* [...] of this encounter (statuses as of 06/27/2022) [facility] Narrative* [...] of this encounter (statuses as of 06/30/2022) [facility] Narrative* [...] of this encounter (statuses as of 07/05/2022) [facility] [facility] History of Past illness Narrative* [...] of this encounter (statuses as of 07/05/2022) [facility] History of Past illness Narrative* [...] of this encounter (statuses as of 07/06/2022) [facility] History of Past illness Narrative* [...] of this encounter (statuses as of 07/07/2022) [facility] History of Past illness Narrative* [...] of this encounter (statuses as of 07/17/2022) [facility] History of Past illness Narrative* [...] of this encounter (statuses as of 07/20/2022) [facility] History of Past illness Narrative* [...] of this encounter (statuses as of 07/24/2022) [facility] History of Past illness Narrative* [...] of this encounter (statuses as of 07/27/2022) [facility] History of Past illness Narrative* [...] of this encounter (statuses as of 08/02/2022) [facility] History of Past illness Narrative* [...] of this encounter (statuses as of 08/04/2022) [facility] History of Past illness Narrative* [...] of this encounter (statuses as of 08/07/2022) [facility] History of Past illness Narrative* [...] of this encounter (statuses as of 08/10/2022) [facility] History of Past illness Narrative* [...] of this encounter (statuses as of 08/11/2022) [facility] History of Past illness Narrative* [...] of this encounter (statuses as of 2022) [facility] History of Past illness Narrative* [...] of this encounter (statuses as of 08/17/2022) [facility] History of Past illness Narrative* [...] of this encounter (statuses as of 08/21/2022) [facility] History of Past illness Narrative* [...] of this encounter (statuses as of 08/23/2022) [facility] History of Past illness Narrative* [...] of this encounter (statuses as of 08/26/2022) [facility] History of Past illness Narrative* [...] of this encounter (statuses as of 08/29/2022) [facility] History of Past illness Narrative* [...] of this encounter (statuses as of 08/29/2022) [facility] History of Past illness Narrative* [...] of this encounter (statuses as of 08/30/2022) [facility] History of Past illness Narrative* [...] of this encounter (statuses as of 08/31/2022) [facility] History of Past illness Narrative* [...] of this encounter (statuses as of 09/01/2022) [facility] History of Past illness Narrative* [...] of this encounter (statuses as of 09/08/2022) [facility] History of Past illness Narrative* [...] of this encounter (statuses as of 09/08/2022) [facility] History of Past illness Narrative* [...] of this encounter (statuses as of 09/12/2022) [facility] History of Past illness Narrative* [...] of this encounter (statuses as of 09/25/2022) [facility] History of Past illness Narrative* [...] of this encounter (statuses as of 09/28/2022) [facility] History of Past illness Narrative* [...] of this encounter (statuses as of 09/29/2022) [facility] History of Past illness Narrative* [...] of this encounter (statuses as of 10/02/2022) [facility] History of Past illness Narrative* [...] of this encounter (statuses as of 10/04/2022) [facility] History of Past illness Narrative* [...] of this encounter (statuses as of 10/06/2022) [facility] History of Past illness Narrative* [...] of this encounter (statuses as of 10/06/2022) [facility] History of Past illness Narrative* [...] of this encounter (statuses as of 10/12/2022) [facility] History of Past illness Narrative* [...] of this encounter (statuses as of 11/02/2022) [facility] History of Past illness Narrative* [...] of this encounter (statuses as of 11/02/2022) [facility] History of Past illness Narrative* [...] of this encounter (statuses as of 11/03/2022) [facility] History of Past illness Narrative* [...] of this encounter (statuses as of 11/09/2022) [facility] History of Past illness Narrative* [...] of this encounter (statuses as of 11/10/2022) [facility] History of Past illness Narrative* [...] of this encounter (statuses as of 11/20/2022) [facility] History of Past illness Narrative* [...] of this encounter (statuses as of 11/29/2022) [facility] History of Past illness Narrative* [...] of this encounter (statuses as of 12/07/2022) [facility] History of Past illness Narrative* [...] of this encounter (statuses as of 12/19/2022) [facility] History of Past illness Narrative* [...] of this encounter (statuses as of 12/25/2022) [facility] History of Past illness Narrative* [...] of this encounter (statuses as of 01/05/2023) [facility] History of Past illness Narrative* [...] of this encounter (statuses as of 01/09/2023) [facility] History of Past illness Narrative* [...] of this encounter (statuses as of 01/10/2023) [facility] History of Past illness Narrative* [...] of this encounter (statuses as of 01/10/2023) [facility] History of Past illness Narrative* [...] of this encounter (statuses as of 01/10/2023) [facility] History of Past illness Narrative* [...] of this encounter (statuses as of 01/16/2023) [facility] History of Past illness Narrative* [...] of this encounter (statuses as of 01/16/2023) [facility] History of Past illness Narrative* [...] of this encounter (statuses as of 01/17/2023) [facility] History of Past illness Narrative* [...] of this encounter (statuses as of 01/26/2023) [facility] History of Past illness Narrative* [...] of this encounter (statuses as of 01/30/2023) [facility] History of Past illness Narrative* [...] of this encounter (statuses as of 02/07/2023) [facility] History of Present illness Narrative* Saleem Carrasco RN - 10/11/2021 2:25 PM EST Report called to Maya arias [facility] * Stephanie Marquez RD, LD - 10/11/2021 [...] any questions or concerns. Hema Carl APRN, [facility] [phone] office Patient is independently assessed and examined and all data and notes are reviewed.I reviewed the EDUCATION AND DEVELOPMENT MANAGER notes and findings I agree with her assessment and plan. 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) Weight Loss: No significant weight loss Body Fat Loss: Unable to assess (deferred) Muscle Mass Loss: Unable to assess (deferred) Fluid Accumulation: No significant fluid accumulation Wool Presser Strength: Not Performed Estimated Daily Nutrient Needs: Energy (kcal): 7051-6095 (11-14 kcal/kg CBW); Weight Used for Energy Requirements: Current (129 kg) Protein (g): 65-82 (1.2-1.5 g protien/kg IBW); Weight Used for Protein Requirements: [place] (54.45 kg) Fluid (ml/day): per MD; Method [...] (127 kg) (noted 08/26/21 per EMR review) [place] Body Weight: 120 lbs; % [place] Body Weight 237.5 % BMI: 48.9 Adjusted [...] Patel : 1955 AGE: 66 y.o. Room[facility]Bed: [facility]2432 Admission Date: 10/01/2021 11:48 PM Consult Date: 10/05/21 Visit Date: 10/10/2021 Reason for Endocrine Consult: T2IDDM Provider/Team Requesting Consult: [facility] PCP: Moe Meyer MD Outpt Bar Turner: no ASSESSMENT: Type 2 diabetes with hyperglycemia [...] Tomography ACCESSION EXAM DATE/TIME PROCEDURE ORDERING PROVIDER [id number] 10/02/2021 02:[address] Head or Brain w/o QUIQUE ROBERTS Contrast CPT code 63036 Reason For Exam (CT Head or Brain [...] Radiology ACCESSION EXAM DATE/TIME PROCEDURE ORDERING PROVIDER [id number] 10/02/2021 00:32 EST CR Chest Portable Beverley QUIQUE GUPTA CPT code 47263 Reason For Exam (CR Chest Portable) sepsis [...] Tomography ACCESSION EXAM DATE/TIME PROCEDURE ORDERING PROVIDER [id number] 10/02/2021 02:[address] Abdomen/Pelvis (No Beverley QUIQUE GUPTA PO, No IV) CPT code 47287 Reason For Exam (CT Abdomen/Pelvis (No PO, [...] 10/10/2021 9:35 AM EST Physical Therapy Facility/Department: [facility] TELE[facility] Daily Treatment Note NAME: Kimberly Patel : 1955 Date of Service: 10/10/2021 Discharge Recommendations: Subacute/Penitentiary Facility Assessment Assessment: Pt presents with slight [...] cues for sequence and initiation AM-PAC Score [facility] Inpatient Mobility Raw Score : 12 (10/10/21927) [facility] Inpatient T-Scale Score : 35.33 (10/10/21927) Mobility Inpatient CMS 0-100% Score: 68.66 (10/10/21927) Mobility Inpatient [facility] G-Code Modifier : CL (10/10/21927) Goals Short [...] 8 Minutes (1 ther act) Petrona Lindo, SDC TEACHER * Morro Bai - 10/10/2021 8:42 AM EST Occupational Therapy Facility/Department: [facility] TE[facility] Daily Treatment Note NAME: Kimberly Patel : 1955 Date of Service: 10/10/2021 Discharge Recommendations: Subacute/Penitentiary Facility, Patient would benefit from continued therapy [...] goal 1: Pt will complete transfer to [facility] with mod A.-na Short term goal 2: [...] Ramírez MD - 10/09/2021 11:16 AM EST [facility] Progress Note Subjective/ 66 y.o. [...] changes We will follow * Saniya Oshea, BUILDING INSPECTION ENGINEER - MANAGER PHARMACY - 10/09/2021 11:09 AM EST Images from [...] for Endocrine Consult: T2IDDM Provider/Team Requesting Consult: [facility] PCP: Moe Meyer MD Outpt Bar Turner: no ASSESSMENT: Type 2 diabetes with hyperglycemia [...] LDL TSH: No results found for: TSH, C5WKTCV, T4SJMMF, THYROIDAB, FT3, T4FREE Radiology reportsas per the Radiologist Radiology: CT Head WO Contrast Result Date: 10/02/2021 Patient Name: KIMBERLY PATEL Computed Tomography ACCESSION EXAM DATE/TIME PROCEDURE ORDERING PROVIDER [id number] 10/02/2021 02:[address] Head or Brain w/o 5816 QUIQUE GUPTA Contrast CPT code 72810 Reason For Exam (CT Head or Brain [...] Radiology ACCESSION EXAM DATE/TIME PROCEDURE ORDERING PROVIDER [id number] 10/02/2021 00:32 EST CR Chest Portable QUIQUE ROBERTS CPT code 90674 Reason For Exam (CR Chest Portable) sepsis [...] Tomography ACCESSION EXAM DATE/TIME PROCEDURE ORDERING PROVIDER [id number] 10/02/2021 02:[address] Abdomen/Pelvis (No QUIQUE ROBERTS PO, No IV) CPT code 88287 Reason For Exam (CT Abdomen/Pelvis (No PO, [...] this note. * Saniya Oshea APRN - MANAGER PHARMACY - 10/08/2021 9:00 AM EST Images from [...] nonoliguric, BP soft No acute need for CHARGE LPN at this time Volume status: euvolemia Upuc [...] any questions or concerns. Hema Carl APRN, MANAGER PHARMACY [facility] [phone] Attending Supervising Physician's Attestation Statement I discussed [...] Patel : 1955 AGE: 66 y.o. [facility]: [facility] Admission Date: 10/01/2021 11:48 PM Consult Date: 10/05/21 Visit Date: 10/07/2021 Reason for Endocrine Consult: T2IDDM Provider/Team Requesting Consult: IMS PCP: Moe Meyer MD Outpt Bar Turner: no ASSESSMENT: Type 2 diabetes with hyperglycemia [...] upcoming appointment with Dr Nikunj Post at [facility] Appointment request sent to Endo [...] LDL TSH: No results found for: TSH, V0VHOJJ, U6QPNQO, THYROIDAB, FT3, T4FREE Radiology reportsas per the Radiologist Radiology: CT Head WO Contrast Result Date: 10/02/2021 Patient Name: KIMBERLY PATEL Computed Tomography ACCESSION EXAM DATE/TIME PROCEDURE ORDERING PROVIDER [id number] 10/02/2021 02:[address] Head or Brain w/o MerlinCristine GUPTA QUIQUE Contrast CPT code 62463 Reason For Exam (CT Head or Brain [...] Radiology ACCESSION EXAM DATE/TIME PROCEDURE ORDERING PROVIDER [id number] 10/02/2021 00:32 EST CR Chest Portable MerlinCristine GUPTA QUIQUE CPT code 33505 Reason For Exam (CR Chest Portable) sepsis [...] Tomography ACCESSION EXAM DATE/TIME PROCEDURE ORDERING PROVIDER [id number] 10/02/2021 02:[address] Abdomen/Pelvis (No 5816 -MANOJ, QUIQUE PO, No IV) CPT code 45347 Reason For Exam (CT Abdomen/Pelvis (No PO, [...] Date: 10/01/2021 PCP: Moe Meyer MD Room#: 243/5522 Interval History: Was able to sit at [...] Consult: IMS PCP: Moe Meyer MD Outpt Bar Turner: no ASSESSMENT: Type 2 diabetes with hyperglycemia [...] hospital protocol. Diet recommendation: restricted carb diet Bar Turner On-Call: Dr Feliciano - until 5 pm Preferred Method of Communication/Reaching: [email or web address]. The above physician should be paged w/ questions/concerns about items being managed by Endocrinology Team. If there are any questions or concerns related to the info in this NOTE please page the health education coordinator senior science consultant directly. On-Call information can be found in the [employer] Directory. We can also be reached by [email or web address] communication system. We appreciate the opportunity to [...] LDL TSH: No results found for: TSH, C0KXNNG, J3RWGBU, THYROIDAB, FT3, T4FREE Radiology reportsas per the Radiologist Radiology: CT Head WO Contrast Result Date: 10/02/2021 Patient Name: KIMBERLY PATEL Computed Tomography ACCESSION EXAM DATE/TIME PROCEDURE ORDERING PROVIDER [id number] 10/02/2021 02:[address] Head or Brain w/o QUIQUE ROBERTS Contrast CPT code 06012 Reason For Exam (CT Head or Brain [...] Radiology ACCESSION EXAM DATE/TIME PROCEDURE ORDERING PROVIDER [id number] 10/02/2021 00:32 EST CR Chest Portable 5816 -QUIQUE ARANDA CPT code 27902 Reason For Exam (CR Chest Portable) sepsis [...] Tomography ACCESSION EXAM DATE/TIME PROCEDURE ORDERING PROVIDER [id number] 10/02/2021 02:[address] Abdomen/Pelvis (No 5816 -MANOJ QUIQUE PO, No IV) CPT code 28438 Reason For Exam (CT Abdomen/Pelvis (No PO, [...] Spencer MD - 10/06/2021 2:18 PM EST [facility] Progress Note Subjective/ 66 y.o. [...] nonoliguric, BP soft No acute need for CHARGE LPN at this time Volume status: euvolemia Repeat [...] any questions or concerns. Hema Carl APRN, MANAGER PHARMACY [facility] [phone] I have independently seen and assessed the patient and agree with above documented A & P, any variance is noted below Same plan as above Melvin Spencer MD [facility] team * Saniya Oshea APRN - MANAGER PHARMACY - 10/06/2021 10:30 AM EST Images from [...] at home since she is quite deconditioned. [facility] Division of Hospitalist Medicine Inpatient Medical Services * Odette Hoagn, PT - 10/05/2021 3:24 PM EST Physical Therapy Facility/Department: [facility] TELE[facility] Initial Assessment NAME: Kimberly Patel : 1955 Date of Service: 10/05/2021 Discharge Recommendations: Subacute/Penitentiary Facility PT Equipment Recommendations Equipment Needed: Yes [...] medical history of CHF (congestive heart failure) ([facility]), COPD (chronic obstructive pulmonary disease) ([facility]), and Diabetes mellitus ([facility]). 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 Diagnoses of Altered mental status, unspecified altered [...] wheel around house) Transfer Assistance: Independent Active Dialysis Tech: No Patient's Dialysis Tech Info: DAUGHTER Mode of Transportation: 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 AM-PAC Score [facility] Inpatient Daily Activity Raw Score: 13 (10/05/211421) -[facility] Inpatient ADL T-Scale Score : 32.03 (10/05/21 142) ADL Inpatient CMS 0-100% Score: 63.03 (10/05/211421) ADL Inpatient [facility] G-Code Modifier : CL (10/05/211421) Goals Short term goals Time Frame for Short term goals: 5 visits Short term goal 1: Pt will complete transfer to [facility] with mod A. Short term goal 2: [...] nonoliguric, BP soft No acute need for CHARGE LPN at this time Volume status: close to [...] any questions or concerns. Hema Carl APRN, MANAGER PHARMACY [facility] [phone] I have independently seen and assessed the patient and agree with above documented A & P, any variance is noted below Same plan as above Melvin Spencer MD [facility] team * Duyen Paz APRN - MANAGER PHARMACY - 10/05/2021 11:08 AM EST Notified by [...] weights CAD - known to cardiology at [facility], chart extensively reviewed - s/p PCI in [...] 10/04/2021 1:46 PM EST Physical Therapy Facility/Department: [facility] TELEMETRY Initial Assessment NAME: Kimberly Patel [...] Referral and appointments to be made by [phone] 2. 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 intake SDC TEACHER d.t UTI and AMS) Weight Loss: No significant weight loss Body Fat Loss: Unable to assess (deferred) Muscle Mass Loss: Unable to assess (deferred) Fluid Accumulation: No significant fluid accumulation Wool Presser Strength: Not Performed Estimated Daily Nutrient Needs: Energy (kcal): 4009-6872 (11-14 kcal/kg CBW); Weight Used for Energy Requirements: Current (129 kg) Protein (g): 65-82 (1.2-1.5 g protien/kg IBW); Weight Used for Protein Requirements: [place] (54.45 kg) Fluid (ml/day): per MD; Method [...] (127 kg) (noted 08/26/21 per EMR review) [place] Body Weight: 120 lbs; % [place] Body Weight 239.3 % BMI: 49.3 BMI [...] Contact: 2430 * Duyen Paz APRN - MANAGER PHARMACY - 10/04/2021 9:37 AM EST Progress Note [...] weights CAD - known to cardiology at [facility], chart extensively reviewed - s/p PCI in [...] 10/03/2021 1:29 PM EST Physical Therapy Facility/Department: [facility] TELEMETRY Initial Assessment NAME: Kimberly Patel [...] 10/03/2021 10:41 AM EST Physical Therapy Facility/Department: [facility] TELEMETRY Initial Assessment NAME: Kimberly Patel [...] Johnson OT * Duyen Paz APRN - MANAGER PHARMACY - 10/03/2021 10:31 AM EST Progress Note [...] weights CAD - known to cardiology at [facility], chart extensively reviewed - s/p PCI in [...] for gram negative rods and E.coli. Dr. Knutson notified. * Candace Garay LPN - 10/02/2021 2:40 PM EST Report given to Jaky on 2E. Patient being transferred to room 243-2 * Haleigh Eng RN - 10/02/2021 11:04 AM EST Patients am blood glucose at bedside was 519 reported by chief nursing officer. Attempted two sticks for cmp phlebotomy without success, PROTOTYPE ASSEMBLER ELECTRONICS attempted two as well. Left message for CHARGE LPN nurse to try and access lab on difficult stick patient. In the meantime, patient stable and lantus, Humalog administered for pt. to cover elevated glucose. Will recheck prior to lunch. IMS Physician will be notified * Duyen Paz APRN - MANAGER PHARMACY - 10/02/2021 10:02 AM EST Same day, [...] compression to her lower extremities possibly some archivist military history weight compression socks or LILIANA hose would [...] follow. documented in this encounterSUMMA Work Phone: [phone]) 992-262312-14-2021 Hospital Discharge instructions* Discharge Instr - Activity* [...] at most local grocery stores, pharmacies, and [employer]-stores. If you have any questions about your diet or nutrition, call the hospital and ask for the dietitian. Diabetic Diet * Discharge Instr - Lab* Zelda Salazar LPN - 10/08/2021 4:56 PM EST Your physician has ordered skilled home care services for you. Your home care will be provided by: [facility] [phone] [facility] [phone] * Discharge Instr - ANN* Saleem Carrasco RN - 10/11/2021 9:56 AM EST Continuity of Care Form Patient Name: Kimberly Patel : 1955 Admit date: 10/01/2021 Discharge date: Code Status Order: Full Code Advance Directives: Admitting Physician: Darius Knutson MD PCP: Moe Meyer MD Discharging Nurse: Discharging Hospital Unit/Room#: 243/2922 Discharging Unit Phone Number: Emergency Contact: No [...] Assisted Dressing Assisted Toileting Assisted Feeding Independent Log Chain Feeder Independent Med Delivery whole Wound Care Documentation [...] to Facility/ Agency Name: Kimberly Roque Address: [address] [place] [address] Dialysis Facility (if applicable) Name: Address: Dialysis Schedule: Phone: Fax: Business Management Manager/Framing Inspector signature: PHYSICIAN SECTION Prognosis: Good Condition at Discharge: Stable Rehab Potential (if transferring to Rehab): Good Recommended Labs or Other Treatments After Discharge: BMP, CBC in 2 days Physician Certification: I certify the above information and transfer of Kimberly Patel is necessary for the continuing treatment of the diagnosis listed and that she requires Penitentiary Facility for less 30 days. Update Admission H&P: No change in H&P PHYSICIAN SIGNATURE: * Attachments The following attachments cannot be sent through Care Everywhere. * Diabetes: Carb Counting and Eating Well: General Info (Iraqi) * Diabetes: Counting Carbohydrates ([place]raqi) * Sepsis ([place]ra[place]) * Renal Failure: Acute ([place]ra[place]) * CARBOHYDRATES: GENERAL INFO (ERITREAN) documented in this [facility] Work Phone: [phone]) 393-200512-14-2021 NoteDischarge Summary Kimberly Patel : 1955 ADMIT [...] 3 times daily (with meals) [employer] [place] 31G X 6 MM [facility] Generic drug: Insulin Pen Needle 1 each [...] drug: Dulaglutide Where to (more content not included)...[facility] Septicemia (HCC)- Primary Unspecified septicemia Altered mental status, unspecified altered mental status type Urinary tract infection without hematuria, site unspecified documented in this encounter [employer] Phone: Evaluation note* Diagnosis Acute congestive heart failure, unspecified heart failure type (HCC) [facility] Diagnosis Type 2 diabetes mellitus with diabetic polyneuropathy, with long-term current use of insulin (HCC) [facility] Diagnosis Type 2 diabetes mellitus with diabetic polyneuropathy, with long-term current use of insulin (HCC)- Primary [facility] Diagnosis Primary hypertension- Primary Unspecified essential hypertension Mixed hyperlipidemia Coronary arteriosclerosis in [place] artery Coronary atherosclerosis of [place] coronary artery Chronic diastolic congestive heart failure (HCC) Chronic diastolic heart failure DIYA (obstructive sleep apnea) Obstructive sleep apnea (adult) (pediatric) [facility] Diagnosis Type 2 diabetes mellitus with diabetic polyneuropathy, with long-term current use of insulin (HCC)- Primary Medication management Encounter for long-term (current) use of other medications [facility] Diagnosis Type 2 diabetes mellitus with diabetic polyneuropathy, with long-term current use of insulin ([facility]) [facility] Diagnosis Type 2 diabetes mellitus with diabetic polyneuropathy, with long-term current use of insulin (HCC)- Primary [facility] Diagnosis Type 2 diabetes mellitus with diabetic polyneuropathy, with long-term current use of insulin (HCC)- Primary Stage 3b chronic kidney disease (HCC) Chronic respiratory failure with hypoxia (HCC) Chronic respiratory failure Restrictive lung disease Other diseases of lung, not elsewhere classified Chronic heart failure with preserved ejection fraction (HFpEF) ([facility]) Morbid obesity with BMI of 45.0-49.9, adult ([facility]) Morbid obesity Recurrent UTI (urinary tract infection) Urinary tract infection, site not specified Primary hypertension Unspecified essential hypertension Coronary artery disease involving [place] heart without angina pectoris, unspecified vessel or [...] Slow transit constipation [facility] Diagnosis Recurrent UTI (urinary tract infection)- Primary Urinary tract infection, site not specified Type 2 diabetes mellitus with diabetic polyneuropathy, with long-term current use of insulin (HCC) Chronic heart failure with preserved ejection fraction (HFpEF) ([facility]) DDD (degenerative disc disease), lumbar Degeneration of lumbar or lumbosacral intervertebral disc Type 2 diabetes mellitus with diabetic polyneuropathy, with long-term current use of insulin ([facility])- Primary [facility] Diagnosis Type 2 diabetes mellitus with diabetic polyneuropathy, with long-term current use of insulin ([facility])- Primary documented [facility]* Diagnosis Type 2 diabetes mellitus with diabetic polyneuropathy, with long-term current use of insulin ([facility])- Primary documented [facility]* Diagnosis Urinary tract infection with hematuria, site unspecified- Primary Acute kidney injury superimposed on CKD (HCC) documented in this encounter [employer] Phone: Evaluation note* Diagnosis Type 2 diabetes mellitus with diabetic polyneuropathy, with long-term current use of insulin (HCC)- Primary [facility] Diagnosis Chronic obstructive pulmonary disease, unspecified COPD type (HCC) Type 2 diabetes mellitus with diabetic polyneuropathy, with long-term current use of insulin (HCC)- Primary [facility] Diagnosis Type 2 diabetes [...] fraction (HFpEF) (HCC) Coronary artery disease involving [place] coronary artery of [place] heart without angina pectoris Stage 3b chronic kidney disease (HCC) Elevated TSH Nonspecific abnormal results of thyroid function study documented [facility] this [facility]* Diagnosis Congestive heart failure, unspecified HF chronicity, unspecified heart failure type (HCC)- Primary [facility] Diagnosis Cellulitis of right lower extremity- Primary Cellulitis and abscess of leg, except foot Rash Rash and other nonspecific skin eruption Chronic diastolic congestive heart failure (HCC) Chronic diastolic heart failure Type 2 diabetes mellitus with diabetic polyneuropathy, with long-term current use of insulin (HCC) Stage 3b chronic kidney disease (HCC) documented [facility] Diagnosis Type 2 diabetes mellitus with diabetic polyneuropathy, with long-term current use of insulin (HCC) documented [facility] Diagnosis Type 2 diabetes mellitus with diabetic polyneuropathy, with long-term current use of insulin (HCC) documented [facility] Diagnosis Chronic heart failure with preserved ejection fraction (HFpEF) (HCC) documented [facility] Diagnosis Ecthyma- Primary Other [...] debility Debility, unspecified [facility] Diagnosis DDD (degenerative disc disease), lumbar- Primary Degeneration of lumbar or lumbosacral intervertebral disc Spondylolisthesis of lumbar region Acquired spondylolisthesis [facility] Diagnosis Congestive heart failure, unspecified HF chronicity, unspecified heart failure type ([facility]) [I50.9 (ICD-10-CM)]- Primary [facility]* Diagnosis Recurrent UTI (urinary tract infection) Urinary tract infection, site not specified documented [facility]* Diagnosis Ecthyma Other specified local infections of skin and subcutaneous tissue documented [facility] this [facility]* Diagnosis Recurrent UTI (urinary tract infection)- [...] Chronic respiratory failure [facility]* Diagnosis Acute on chronic diastolic CHF (congestive heart failure) (HCC)- Primary Acute on chronic diastolic heart failure [facility] Diagnosis Ecthyma Other specified local infections of skin and subcutaneous tissue documented [facility] this [facility]* Diagnosis Neuropathy- Primary Mononeuritis of unspecified site documented in this [facility]* Diagnosis Ecthyma Other specified local infections of skin and subcutaneous tissue [facility] Diagnosis Immobility- Primary Other ill-defined conditions [facility] Diagnosis Ecthyma Other specified local infections of skin and subcutaneous tissue documented [facility] this encounter [facility] noteNo assessment information availableWUC Medical Center Work Phone: Evaluation note* Diagnosis Encounter for support and coordination of transition of care- Primary documented in this encounter [facility] note* Diagnosis Type 2 diabetes mellitus with diabetic polyneuropathy, with long-term current use of insulin ([facility]) documented in this encounter [facility] note* Diagnosis DIYA (obstructive sleep apnea)- Primary Obstructive sleep apnea (adult) (pediatric) documented in this encounter [facility] note* Diagnosis Bilateral leg edema- Primary Edema documented in this encounter [facility] note* Diagnosis Acute on chronic diastolic CHF (congestive heart failure) ([facility]) Acute on chronic diastolic heart failure documented in this encounter [facility] note* Diagnosis Sphenoid sinusitis, unspecified chronicity- Primary Bilateral lower extremity edema Sphenoid sinusitis, unspecified chronicity Fever, unspecified fever cause Delirium Other alteration of consciousness Irritant contact dermatitis due to incontinence of both feces and urine Acute cystitis without hematuria Pressure injury of buttock, stage 2, unspecified laterality ([facility]) UTI (urinary tract infection) Urinary tract infection, site not specified [facility]* Diagnosis Encephalopathy acute- Primary Unspecified encephalopathy Transient alteration of awareness Lower urinary tract infectious disease Urinary tract infection, site not specified UTI (urinary tract infection) Urinary tract infection, site not specified Edema, unspecified type Edema of right upper arm UTI (urinary tract infection) Urinary tract infection, site not specified documented in this encounter [facility] for referral (narrative)* Diagnostic Procedure Only (Routine) - Authorized Specialty Diagnoses / Procedures Referred By Lalitha mark Referred To Contact US IMAGING Diagnoses Bilateral leg edema Procedures US DVT LOWER BILAT DUP-SCAN XTR VEINS COMPLETE BILATERAL STUDY Agustin Barahona, MANAGER PHARMACY [address] [facility] [address] [place] [address] Us Imaging Referral ID Status Reason Start Date Expiration Date Visits Requested Visits Authorized [id number] Authorized Auto-Generat ed Referral 08/02/2022 09/01/2023 1 [facility] Consultation (Routine) - Pending Review Specialty Diagnoses / Procedures Referred By Contfely t Referred To Contact Wound Care Diagnoses Irritant contact dermatitis due to incontinence of both feces and urine Procedures RI OFFICE/OUTPATIENT NEW HIGH MDM 60 MINUTES Manisha Tao APRN - CNP [address] [place] [address] [facility] Op Wnd Ostomy [address] [place] [address] Referral ID Status Reason Start Date Expiration Date Visits Requested Visits Authorized [id number] Pending Review Specialty Services Required 02/22/2024 02/21/2025 1 1 [facility] for referral (narrative)No reason for referral information availableWUC Medical Center Work Phone: Summary Purpose Family History No [...] Documents on File Type Date Recorded Patient Cathode Builder Expl anation Advance Directive(s) 09/19/2021 2:15 AM [...] Documents on File Type Date Recorded Patient Cathode Builder Expl anation Advance Directive(s) 09/19/2021 2:15 AM [...] Documents on File Type Date Recorded Patient Cathode Builder Expl anation Advance Directive(s) 04/10/2022 10:35 AM [...] with hypoxia (HCC) Coronary artery disease involving [place] heart without angina pectoris, unspecified vessel or lesion type Requires assistance with activities of daily living (ADL) Weakness of both legs Procedures CONSULT TO [facility] Frankie Deng MD [address] [facility], [address] [place] [address] [address] [place] [address] Referral ID Status Reason Start Date Expiration Date Visits Requested Visits Authorized [id number] Pending Review PCP Requested Referral 03/22/2022 06/20/2022 1 1 Specialty Diagnoses / Procedures Referred By Contac t Referred To Contact Dermatology Diagnoses Ecthyma Procedures CONSULT TO DERMATOLOGY OFFICE/OUTPATIENT [facility] 60-74 MINUTES Agustin Barahona APRN.MANAGER PHARMACY [address] [facility] [address] [place] [address] Referral ID Status Reason Start Date Expiration Date Visits Requested Visits Authorized [id number] Pending Review PCP Requested Referral 2 2023 1 1 Specialty Diagnoses / Procedures Referred By Contac t Referred To Contact US IMAGING Diagnoses Leg swelling Procedures US DVT LOWER BILAT DUP-SCAN XTR VEINS COMPLETE BILATERAL STUDY Agustin Barahona APRN.MANAGER PHARMACY [address] [facility] [address] [place] [address] Us Imaging Referral ID Status Reason Start Date Expiration Date Visits Requested Visits Authorized [id number] Pending Review Auto-Generat ed Referral 2 09/15/2023 1 1 Specialty Diagnoses / Procedures Referred By Contac t Referred To Contact Pain Management Diagnoses DDD (degenerative disc disease), lumbar Spondylolisthesis of lumbar region Procedures CONSULT TO PAIN MGT Agustin Barahona APRN.MANAGER PHARMACY [address] [facility] [address] [place] [address] Referral ID Status Reason Start Date Expiration Date Visits Requested Visits Authorized [id number] Ref Not Required PCP Requested Referral 2 08/28/2023 1 1 Specialty Diagnoses / Procedures Referred By Contac t Referred To Contact Diagnoses Immobility Procedures PRIMARY CARE SOCIAL WORK CONSULT Agustin Barahona APRN.MANAGER PHARMACY [address] [facility] [address] [place] [address] Referral ID Status Reason Start Date Expiration Date Visits Requested Visits Authorized [id number] Ref Not Required PCP Requested Referral 11/09/2022 02/07/2023 1 1 Specialty Diagnoses / Procedures Referred By Lalitha t Referred To Contact Diagnoses DIYA (obstructive sleep apnea) Procedures CONSULT TO SLEEP MEDICINE - ADULT Agustin Barahona APRN.MANAGER PHARMACY [address] [facility] [address] [place] [address] Referral ID Status Reason Start Date Expiration Date Visits Requested Visits Authorized [id number] Ref Not Required PCP Requested Referral 06/26/2022 [...] Complaint and Reason for Visit Chief Complaint CARE HOME LAB WOR K Chief Complaint LABWORK CARE HOME LAB WORK Chief Complaint LABWORK CARE HOME LAB WORK CARE HOME LABWORK Chief Complaint LABWORK CARE HOME LAB WORK CARE HOME LABWORK CARE HOME LABWORK Chief Complaint LABWORK CARE HOME LAB WORK CARE HOME LABWORK CARE HOME LABWORK CARE HOME LAB WORK CARE HOME LABWORK Chief Complaint LABWORK CARE HOME LAB WORK CARE HOME LABWORK CARE HOME LABWORK CARE HOME LAB WORK CARE HOME LABWORK CARE HOME LABWORK Chief Complaint LABWORK CARE HOME LAB WORK CARE HOME LABWORK CARE HOME LABWORK CARE HOME LAB WORK CARE HOME LABWORK LABWORK CARE HOME LABWORK Chief Complaint LABWORK CARE HOME LAB WORK CARE HOME LABWORK CARE HOME LABWORK CARE HOME LAB WORK CARE HOME LABWORK LABWORK LABWORK CARE HOME LABWORK Chief Complaint LABWORK CARE HOME LAB WORK CARE HOME LABWORK CARE HOME LABWORK CARE HOME LAB WORK CARE HOME LABWORK LABWORK LABWORK CARE HOME LABWORK LABWORK Chief Complaint LABWORK CARE HOME LAB WORK CARE HOME LABWORK CARE HOME LABWORK CARE HOME LAB WORK CARE HOME LABWORK LABWORK LABWORK CARE HOME LABWORK LABWORK LABWORK Chief Complaint LABWORK CARE HOME LAB WORK CARE HOME LABWORK CARE HOME LABWORK CARE HOME LAB WORK CARE HOME LABWORK LABWORK LABWORK CARE HOME LABWORK LABWORK LABWORK CARE HOME LAB WORK CARE HOME LABWORK Chief Complaint LABWORK CARE HOME LAB WORK CARE HOME LABWORK CARE HOME LABWORK CARE HOME LAB WORK CARE HOME LABWORK LABWORK LABWORK CARE HOME LABWORK LABWORK LABWORK CARE HOME LAB WORK CARE HOME LABWORK LABWORK Chief Complaint LABWORK CARE HOME LAB WORK CARE HOME LABWORK CARE HOME LABWORK CARE HOME LAB WORK CARE HOME LABWORK LABWORK LABWORK CARE HOME LABWORK LABWORK LABWORK CARE HOME LAB WORK CARE HOME LABWORK LABWORK CARE HOME LABWORK Chief Complaint CARE HOME LABWORK CARE HOME LABWORK CARE HOME LAB WORK CARE HOME LABWORK LABWORK LABWORK CARE HOME LABWORK LABWORK LABWORK CARE HOME LAB WORK CARE HOME LABWORK LABWORK CARE HOME LABWORK CARE HOME LAB WORK Chief Complaint CARE HOME LABWORK CARE HOME LAB WORK CARE HOME LABWORK LABWORK LABWORK CARE HOME LABWORK LABWORK LABWORK CARE HOME LAB WORK CARE HOME LABWORK LABWORK CARE HOME LABWORK CARE HOME LABWORK CARE HOME LAB WORK Chief Complaint CARE HOME LAB WOR K CARE HOME LABWORK LABWORK LABWORK CARE HOME LABWORK LABWORK LABWORK CARE HOME LAB WORK CARE HOME LABWORK LABWORK CARE HOME LABWORK CARE HOME LABWORK CARE HOME LAB WORK LABWORK Chief Complaint CARE HOME LAB WOR K CARE HOME LABWORK LABWORK LABWORK CARE HOME LABWORK LABWORK LABWORK CARE HOME LAB WORK CARE HOME LABWORK LABWORK CARE HOME LABWORK CARE HOME LABWORK CARE HOME LAB WORK LABWORK LABWORK Chief Complaint LABWORK CARE HOME LABWORK CARE HOME LABWORK CARE HOME LAB WORK LABWORK LABWORK LABWORK Chief Complaint CARE HOME LAB WOR K LABWORK LABWORK LABWORK LABWORK CARE HOME LAB WORK Chief Complaint LABWORK LABWORK CARE HOME LAB WORK LABWORK CARE HOME LAB WORK Chief Complaint CARE HOME LAB WOR K LABWORK Chief Complaint CARE HOME LAB WOR K LABWORK LABWORK Chief Complaint Admit Date CARE HOME LAB WORK September 17 4:00am CARE HOME LAB WORK October 02, 2024 5:00am CARE HOME LAB WORK October 09 5:00am LABWORK December 19, 2024 5:00am Chief Complaint Admit Date CARE HOME LAB WORK October 09 5:00am LABWORK December 19, 2024 5:00am CARE HOME LAB WORK January 19, 2025 5 :00am Chief Complaint Admit Date LABWORK December 19, 2024 5:00am CARE HOME LAB WORK January 19, 2025 5 :00am CARE HOME LAB WORK February 12, 2025 5 :00am Additional Source Comments INFORMATION SOURCE (unrecogn ized section and content) DATE CREATED AUTHOR 03/14/2020 [facility] ([place]) DATE CREATED AUTHOR AUTHOR'S ORGANIZ ATION 05/19/2020 [facility] [place] DATE CREATED AUTHOR AUTHOR'S ORGANIZ ATION 08/19/2021 [facility] DATE CREATED AUTHOR AUTHOR'S ORGANIZ ATION 06/12/2022 [facility] DATE CREATED AUTHOR AUTHOR'S ORGANIZ ATION 12/01/2022 [facility] DATE CREATED AUTHOR AUTHOR'S ORGANIZ ATION 08/12/2023 [facility] DATE CREATED AUTHOR AUTHOR'S ORGANIZ ATION 03/30/2024 [facility] DATE CREATED AUTHOR AUTHOR'S ORGANIZ ATION 07/31/2025 [facility] Reason for Visit (unrecogniz ed section and [...] MIN VIDEO PRIMARY EST Self, Agustin Crane, BUILDING INSPECTION ENGINEER.MANAGER PHARMACY [address] [facility] [address] [place] [address] Referral ID Status Reason Start Date Expiration Date Visits Re quested Visits Authorized [id number] Closed 10/29/2021 10/28/2022 1 1 Reason Comments ak HFC swelling 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 Comments 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 Reason Comments Patient Question Medication Reason Comments Orders Appointment update Reason Comments Appointment Reason Comments Results Labs done at ED Reason Comments Rash Reason Onset Date Comments 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 Shmuel Trevino MD [address] [place] [id number] [facility] [address] [address] Referral ID Status Reason Start Date Expiration Date Visits Re quested Visits Authorized [id number] 1 1 Reason Comments Altered Mental Status PER FACILITY, PT S TARTED WITH CONFUSION AND HALLUCINATIONS AT [place], [place] FOR UTI PRESENT Specialty Diagnoses / Procedures Referred By Contac t Referred To Contact Diagnoses Transient alteration of awareness Lower urinary tract infectious disease UTI (urinary tract infection) Encephalopathy acute Edema, unspecified type Edema of right upper arm Procedures .. Eboni Fletcher MD [address] [place] [address] [facility] [address] [address] Referral ID Status Reason Start Date Expiration Date Visits Re quested Visits Authorized [id number] 1 1 Ordered Prescriptions (unrec ognized section [...] EVERY 6 HOURS PRN, Cramping, Starting on Margy 10/06/21 at 0558 sodium chloride flush 0.9 [...] 24 hours. 1003 (Given - Provider: Janelle Micehl, RN) dextrose 5 % solution 100 mL/hr, [...] Mina Tillman RN) 1050 (Given - Provider: Kimbreley Hair RN) cyanocobalamin (Vitamin B-12) tablet 1,000 [...] 0-12 Units, SubCUTAneous, Nightly, First dose on Margy 02/21/24 at 2145, If continuous tube feedings/TPN/NPO, [...] Provider: Mina Tillman RN)2033 (Given - Provider: Elodia Rivera RN) 105 [...] Depressive Disorder 923 (Given - Provider: Saleem Carrasco RN) 906 (Given - Provider: Mina Tillman [...] sedation for opioid reversal - MUST notify health education coordinator provider immediately after first dose, may give [...] daily, First dose (after last modification) on [facility] 03/08/24 at 0900, Indications: Type 2 Diabetes [...] Patient sleeping / refused)2118 (Given - Provider: Jeannnie James RN) 08 (Given - Provider: Enedelia [...] sedation for opioid reversal - MUST notify health education coordinator provider immediately after first dose, may give [...] Status Dates Lucy Quick Attending Provider Active Workers' Compensation Claims Examiner Relationship Specialty Start Date End Date Moe Meyer MD [address] [place] [address] PCP - General 10/02/21 Workers' Compensation Claims Examiner Relationship Specialty Start Date End Date Maryan Rick, DO [address] [facility] [address] [place] [address] Referring Internal Medicine 07/06/21 Susan Cuello [facility] [address] [place] [address] Pharmacist Primary Care 08/05/21 Sejal Calvin, BUILDING INSPECTION ENGINEER.MANAGER PHARMACY [address] [facility] [place], [place] [id number] Referring Family Practice 12/04/21 Workers' Compensation Claims Examiner Relationship Specialty Start Date End Date Maryan Rick, DO [address] [facility] [address] [place] [address] Referring Internal Medicine 07/06/21 Susan Cuello, [facility] [address] [place] [address] Pharmacist Primary Care 08/05/21 Sejal Calvin, BUILDING INSPECTION ENGINEER.MANAGER PHARMACY [address] [place] [address] Referring Family Practice 12/04/21 Workers' Compensation Claims Examiner Relationship Specialty Start Date End Date Maryan Rick DO [address] [facility] [address] [place] [address] Referring Internal Medicine 07/06/21 Susan Cuello, [facility] [address] [place] [address] Pharmacist Primary Care 08/05/21 Sejal Calvin, BUILDING INSPECTION ENGINEER.MANAGER PHARMACY [address] [place] [address] Referring Family Practice 12/04/21 Workers' Compensation Claims Examiner Relationship Specialty Start Date End Date Moe Meyer MD [address] [place] [address] [phone] PCP - General Family Practice 02/27/22 Maryan Rick, DO [address] [facility] [address] [place] [address] Referring Internal Medicine 07/06/21 Susan Cuello, [facility] [address] [place] [address] Pharmacist Primary Care 08/05/21 Sejal Calvin, BUILDING INSPECTION ENGINEER.MANAGER PHARMACY [address] [place] [address] Referring Family Practice 12/04/21 Workers' Compensation Claims Examiner Relationship Specialty Start Date End Date Moe Meyer MD [address] [place] [address] [phone] PCP - General Family Practice 02/27/22 Maryan Rick, DO [address] [facility] [address] [place] [address] Referring Internal Medicine 07/06/21 MinSusan, [facility] [address] [place] [address] Pharmacist Primary Care 08/05/21 Sejal Calvin, BUILDING INSPECTION ENGINEER.MANAGER PHARMACY [address] [place] [address] Referring Family Practice 12/04/21 Workers' Compensation Claims Examiner Relationship Specialty Start Date End Date Moe Meyer MD [address] [place] [address] PCP - General Family Practice 02/27/22 Maryan Rick DO [address] [facility] [address] [place] [address] Referring Internal Medicine 07/06/21 Susan Cuello, [facility] [address] [place] [address] Pharmacist Primary Care 08/05/21 Sejal Calvin, BUILDING INSPECTION ENGINEER.MANAGER PHARMACY [address] [place] [address] Referring Family Practice 12/04/21 Workers' Compensation Claims Examiner Relationship Specialty Start Date End Date Moe Meyer MD [address] [place] [address] PCP - General Family Practice 02/27/22 Maryan Rick DO [address] [facility] [address] [place] [address] Referring Internal Medicine 07/06/21 Susan Cuello, [facility] [address] [place] [address] Pharmacist Primary Care 08/05/21 Sejal Calvin, BUILDING INSPECTION ENGINEER.MANAGER PHARMACY 1 [place] [address] Referring Family Practice 12/04/21 Workers' Compensation Claims Examiner Relationship Specialty Start Date End Date Moe Meyer MD [address] [place] [address] PCP - General Family Practice 02/27/22 Maryan Rick, DO 1 [facility] [address] [place] [address] Referring Internal Medicine 07/06/21 Susan Cuello, [facility] [address] [place] [address] Pharmacist Primary Care 08/05/21 Sejal Calvin, BUILDING INSPECTION ENGINEER.MANAGER PHARMACY 1 [place] [address] Referring Family Practice 12/04/21 Workers' Compensation Claims Examiner Relationship Specialty Start Date End Date Moe Meyer MD [address] [place] [address] PCP - General Family Practice 02/27/22 Maryan Rick, DO 1 [place] [facility] [address] [place] [address] Referring Internal Medicine 07/06/21 Susan Cuello, [facility] [address] [place] [address] Pharmacist Primary Care 08/05/21 Sejal Calvin, BUILDING INSPECTION ENGINEER.MANAGER PHARMACY 1 [facility] [place] [address] Referring Family Practice 12/04/21 Workers' Compensation Claims Examiner Relationship Specialty Start Date End Date Moe Meyer MD [address] [place] [address] PCP - General Family Practice 02/27/22 Maryan Rick, DO [address] [facility] [address] [place] [address] Referring Internal Medicine 07/06/21 Susan Cuello, [facility] [address] [place] [address] Pharmacist Primary Care 08/05/21 Sejal Calvin, BUILDING INSPECTION ENGINEER.MANAGER PHARMACY 1 [place] [address] Referring Family Practice 12/04/21 Workers' Compensation Claims Examiner Relationship Specialty Start Date End Date Moe Meyer MD [address] [place] [phone] PCP - General Family Practice 02/27/22 Maryan Rick, DO [address] [facility] [address] [place] [address] Referring Internal Medicine 07/06/21 Susan Cuello, [facility] [address] [place] [address] Pharmacist Primary Care 08/05/21 Sejal Calvin, BUILDING INSPECTION ENGINEER.MANAGER PHARMACY [address] [place] [address] Referring Family Practice 12/04/21 Workers' Compensation Claims Examiner Relationship Specialty Start Date End Date Moe Meyer MD [address] [place] [phone] PCP - General Family Practice 02/27/22 Maryan Rick, DO [address] [facility] [address] [place] [address] Referring Internal Medicine 07/06/21 Susan Cuello [facility] [address] [place] [address] Pharmacist Primary Care 08/05/21 Sejal Calvin, BUILDING INSPECTION ENGINEER.MANAGER PHARMACY 1 [place] [address] Referring Family Practice 12/04/21 Workers' Compensation Claims Examiner Relationship Specialty Start Date End Date Moe Meyer MD [address] [place] [address] [phone] PCP - General Family Practice 02/27/22 Maryan Rcik, DO 1 [place] [facility] [address] [place] [address] Referring Internal Medicine 07/06/21 Susan Cuello [facility] [address] [place] [address] Pharmacist Primary Care 08/05/21 Sejal Calvin, BUILDING INSPECTION ENGINEER.MANAGER PHARMACY 1 [place] [address] Referring Family Practice 12/04/21 Workers' Compensation Claims Examiner Relationship Specialty Start Date End Date Frankie Deng MD [address] [place] [address], [address] [place] [address] PCP - General Gerontology 04/04/22 Maryan Rick, DO [address] [place] [address] [facility] [address] [place] [address] Referring Internal Medicine 07/06/21 Susan Cuello [facility] [address] [place] [address] Pharmacist Primary Care 08/05/21 Sejal Calvin, BUILDING INSPECTION ENGINEER.MANAGER PHARMACY [address] [address] Referring Family Practice 12/04/21 Workers' Compensation Claims Examiner Relationship Specialty Start Date End Date Frankie Deng MD [address] [place] [address], [address] [place], [place] [phone] PCP - General Gerontology 04/04/22 Maryan Rick DO [address] [facility] [address] [place] [address] Referring Internal Medicine 07/06/21 Susan Cuello, [facility] [address] [place] [address] Pharmacist Primary Care 08/05/21 Sejal Calvin, BUILDING INSPECTION ENGINEER.MANAGER PHARMACY [address] [facility] [address] Referring [facility] Practice 12/04/21 Workers' Compensation Claims Examiner Relationship Specialty Start Date End Date Frankie Deng MD [address] [place] [address], [address] [place], [place] [phone] PCP - General Gerontology 04/04/22 Maryan Rick, DO 1 [place] [facility] [address] [place] [address] Referring Internal Medicine 07/06/21 Susan Cuello, [facility] [address] [place] [address] Pharmacist Primary Care 08/05/21 Sejal Calvin, BUILDING INSPECTION ENGINEER.MANAGER PHARMACY 1 [place] [facility] [place], [place] [id number] Referring Family Practice 12/04/21 Workers' Compensation Claims Examiner Relationship Specialty Start Date End Date Frankie Deng MD [address] [facility], [address] [place] [address] PCP - General Gerontology 04/04/22 Maryan Rick, DO [address] [place] [address] [facility] [address] [place], [place] [id number] Referring Internal Medicine 07/06/21 Susan Cuello, [facility] [address] [place] [address] Pharmacist Primary Care 08/05/21 Sejal Calvin, BUILDING INSPECTION ENGINEER.MANAGER PHARMACY 1 [place], [place] [id number] Referring Family Practice 12/04/21 Workers' Compensation Claims Examiner Relationship Specialty Start Date End Date Frankie Deng MD [address] [facility] [address] [place] [address] PCP - General Geriatric Medicine 05/02/22 Workers' Compensation Claims Examiner Relationship Specialty Start Date End Date Frankie Deng MD [address] [facility], [address] [place] [address] PCP - General Gerontology 04/04/22 Maryan Rick, DO [address] [facility] [address] [place], [place] [phone] Referring Internal Medicine 07/06/21 Susan Cuello, [facility] [address] [place] [address] Pharmacist Primary Care 08/05/21 Sejal Calvin, BUILDING INSPECTION ENGINEER.MANAGER PHARMACY 1 [place], [place] [id number] Referring Family Practice 12/04/21 Workers' Compensation Claims Examiner Relationship Specialty Start Date End Date Frankie Deng MD [facility], [address] [place] [address] PCP - General Gerontology 04/04/22 Maryan Rick, DO 1 [facility] [address] [place], [place] [phone] Referring Internal Medicine 07/06/21 [facility] [address] [place] [address] Pharmacist Primary Care 08/05/21 Sejal Calvin, BUILDING INSPECTION ENGINEER.MANAGER PHARMACY 1 [place], [place] [phone] Referring Family Practice 12/04/21 Workers' Compensation Claims Examiner Relationship Specialty Start Date End Date Agustin Barahona, BUILDING INSPECTION ENGINEER.MANAGER PHARMACY [address] [facility] [address] [place], [place] [address] PCP - General Family Practice 06/23/22 Maryan Rick, DO 1 [facility] [address] [place] [address] Referring Internal Medicine 07/06/21 [facility], [facility] [address] [place] [address] Pharmacist Primary Care 08/05/21 Sejal Calvin, BUILDING INSPECTION ENGINEER.MANAGER PHARMACY 1 [place], [place] [phone] Referring Family Practice 12/04/21 Workers' Compensation Claims Examiner Relationship Specialty Start Date End Date Agustin Barahona, BUILDING INSPECTION ENGINEER.MANAGER PHARMACY [address] [facility] [address] [place] [address] PCP - General Family Practice 06/23/22 Maryan Rick DO [address] [facility] [address] [place] [address] Referring Internal Medicine 07/06/21 MinSusan, [facility] [address] [place] [address] Pharmacist Primary Care 08/05/21 Sejal Calvin, BUILDING INSPECTION ENGINEER.MANAGER PHARMACY [address] [place] [address] Referring Family Practice 12/04/21 Workers' Compensation Claims Examiner Relationship Specialty Start Date End Date Agustin Barahona, BUILDING INSPECTION ENGINEER.MANAGER PHARMACY [address] [facility] [address] [place] [address] PCP - General Family Practice 06/23/22 Maryan Rick DO [address] [facility] [address] [place] [address] Referring Internal Medicine 07/06/21 MinSusan, [facility] [address] [place] [address] Pharmacist Primary Care 08/05/21 Sejal Calvin, BUILDING INSPECTION ENGINEER.MANAGER PHARMACY [address] [place] [address] Referring Family Practice 12/04/21 Workers' Compensation Claims Examiner Relationship Specialty Start Date End Date Agustin Barahona, BUILDING INSPECTION ENGINEER.MANAGER PHARMACY [address] [facility] [address] [place] [address] PCP - General Family Practice 06/23/22 Maryan Rick DO [address] [facility] [address] [place] [address] Referring Internal Medicine 07/06/21 MinSusan, [facility] [address] [place] [address] Pharmacist Primary Care 08/05/21 Sejal Calvin, BUILDING INSPECTION ENGINEER.MANAGER PHARMACY [address] [place] [address] Referring Family Practice 12/04/21 Workers' Compensation Claims Examiner Relationship Specialty Start Date End Date Agustin Barahona, BUILDING INSPECTION ENGINEER.MANAGER PHARMACY [address] [facility] [address] [place] [address] PCP - General Family Practice 06/23/22 Maryan Rick DO 1 [place] [facility] [address] [place] [address] Referring Internal Medicine 07/06/21 MinSusan, [facility] [address] [place] [address] Pharmacist Primary Care 08/05/21 Sejal Calvin, BUILDING INSPECTION ENGINEER.MANAGER PHARMACY [address] [place] [address] Referring Family Practice 12/04/21 Workers' Compensation Claims Examiner Relationship Specialty Start Date End Date Agustin Barahona, BUILDING INSPECTION ENGINEER.MANAGER PHARMACY [address] [facility] [address] [place] [address] PCP - General Family Practice 06/23/22 Maryan Rick DO 1 [facility] [address] [place] [address] Referring Internal Medicine 07/06/21 MinSusan, [facility] [address] [place] [address] Pharmacist Primary Care 08/05/21 Sejal Calvin, BUILDING INSPECTION ENGINEER.MANAGER PHARMACY [address] [place] [address] Referring Family Practice 12/04/21 Workers' Compensation Claims Examiner Relationship Specialty Start Date End Date Agustin Barahona, BUILDING INSPECTION ENGINEER.MANAGER PHARMACY [address] [facility] [address] [place] [address] PCP - General Family Practice 06/23/22 Maryan Rick, DO [address] [facility] [address] [place] [address] Referring Internal Medicine 07/06/21 Sejal Calvin, BUILDING INSPECTION ENGINEER.MANAGER PHARMACY [address] [place] [address] Referring Family Practice 12/04/21 Workers' Compensation Claims Examiner Relationship Specialty Start Date End Date Agustin Barahona, BUILDING INSPECTION ENGINEER.MANAGER PHARMACY [address] [facility] [address] [place] [address] PCP - General Family Practice 06/23/22 Maryan Rick DO [address] [facility] [address] [place] [address] Referring Internal Medicine 07/06/21 Sejal Calvin, BUILDING INSPECTION ENGINEER.MANAGER PHARMACY [address] [place] [address] Referring Family Practice 12/04/21 Workers' Compensation Claims Examiner Relationship Specialty Start Date End Date Agustin Barahona, BUILDING INSPECTION ENGINEER.MANAGER PHARMACY [address] [facility] [address] [place] [address] PCP - General Family Practice 06/23/22 Maryan Rick DO [address] [facility] [address] [place] [address] Referring Internal Medicine 07/06/21 Sejal Calvin, BUILDING INSPECTION ENGINEER.MANAGER PHARMACY [address] [place] [address] Referring Family Practice 12/04/21 Workers' Compensation Claims Examiner Relationship Specialty Start Date End Date Agustin Barahona, BUILDING INSPECTION ENGINEER.MANAGER PHARMACY [address] [facility] [address] [place] [address] PCP - General Family Medicine 06/23/22 Maryan Rick, DO [address] [facility] [address] [place] [address] Referring Internal Medicine 07/06/21 Sejal Calvin, BUILDING INSPECTION ENGINEER.MANAGER PHARMACY [address] [place] [address] Referring Family Medicine 12/04/21 Workers' Compensation Claims Examiner Relationship Specialty Start Date End Date Agustin Barahona, BUILDING INSPECTION ENGINEER.MANAGER PHARMACY [address] [facility] [address] [place] [address] PCP - General Family Medicine 06/23/22 Maryan Rick DO [address] [facility] [address] [place] [address] Referring Internal Medicine 07/06/21 Sejal Calvin, BUILDING INSPECTION ENGINEER.MANAGER PHARMACY [address] [place] [address] Referring Family Medicine 12/04/21 Workers' Compensation Claims Examiner Relationship Specialty Start Date End Date Agustin Barahona, BUILDING INSPECTION ENGINEER.MANAGER PHARMACY [address] [facility] [place] [address] PCP - General Family Medicine 06/23/22 Maryan Rick, DO [address] [facility] [address] [place] [address] Referring Internal Medicine 07/06/21 Sejal Calvin, BUILDING INSPECTION ENGINEER.MANAGER PHARMACY [address] [place] [address] Referring Family Medicine 12/04/21 Workers' Compensation Claims Examiner Relationship Specialty Start Date End Date Agustin Barahona, BUILDING INSPECTION ENGINEER.MANAGER PHARMACY [address] [facility] [address] [place] [address] PCP - General Family Medicine 06/23/22 Maryan Rick, DO [address] [facility] [address] [place] [address] Referring Internal Medicine 07/06/21 Sejal Calvin, BUILDING INSPECTION ENGINEER.MANAGER PHARMACY [address] [place] [address] Referring Family Medicine 12/04/21 Workers' Compensation Claims Examiner Relationship Specialty Start Date End Date Agustin Barahona, BUILDING INSPECTION ENGINEER.MANAGER PHARMACY [address] [facility] [address] [place] [address] PCP - General Family Medicine 06/23/22 Maryan Rick DO [address] [facility] [address] [place] [address] Referring Internal Medicine 07/06/21 Sejal Calvin, BUILDING INSPECTION ENGINEER.MANAGER PHARMACY [address] [place] [address] Referring Family Medicine 12/04/21 Workers' Compensation Claims Examiner Relationship Specialty Start Date End Date Agustin Barahona, BUILDING INSPECTION ENGINEER.MANAGER PHARMACY [address] [facility] [address] [place] [address] PCP - General Family Medicine 06/23/22 Maryan Rick, DO [address] [facility] [address] [place] [address] Referring Internal Medicine 07/06/21 Sejal Calvin, BUILDING INSPECTION ENGINEER.MANAGER PHARMACY [address] [place] [address] Referring Family Medicine 12/04/21 Workers' Compensation Claims Examiner Relationship Specialty Start Date End Date Agustin Barahona, BUILDING INSPECTION ENGINEER.MANAGER PHARMACY [address] [facility] [place] [address] PCP - General Family Medicine 06/23/22 Maryan Rick, DO [address] [facility] [address] [place] [address] Referring Internal Medicine 07/06/21 Sejal Calvin, BUILDING INSPECTION ENGINEER.MANAGER PHARMACY [address] [place] [address] Referring Family Medicine 12/04/21 Workers' Compensation Claims Examiner Relationship Specialty Start Date End Date Agustin Barahona, BUILDING INSPECTION ENGINEER.MANAGER PHARMACY [address] [facility] [address] [place] [address] PCP - General Family Medicine 06/23/22 Maryan Rick, DO [address] [facility] [address] [place] [address] Referring Internal Medicine 07/06/21 Sejal Calvin, BUILDING INSPECTION ENGINEER.MANAGER PHARMACY [address] [place] [address] Referring Family Medicine 12/04/21 Workers' Compensation Claims Examiner Relationship Specialty Start Date End Date Agustin Barahona, BUILDING INSPECTION ENGINEER.MANAGER PHARMACY [address] [facility] [address] [address] [place] [address] PCP - General Family Medicine 06/23/22 Maryan Rick, DO [address] [facility] [address] [place] [address] Referring Internal Medicine 07/06/21 Sejal Calvin, BUILDING INSPECTION ENGINEER.MANAGER PHARMACY [address] [place] [address] Referring Family Medicine 12/04/21 Krupa Aparicio, RN [address] [facility] [place] [address] Primary Care Assembly Line Leader 08/28/22 11/26/22 Workers' Compensation Claims Examiner Relationship Specialty Start Date End Date Agustin Barahona, BUILDING INSPECTION ENGINEER.MANAGER PHARMACY 6 [facility] [address] [place] [address] PCP - General Family Medicine 06/23/22 Maryan Rick DO [address] [facility] [address] [place] [address] Referring Internal Medicine 07/06/21 Sejal Calvin, BUILDING INSPECTION ENGINEER.MANAGER PHARMACY [address] [place] [address] Referring Family Medicine 12/04/21 Krupa Aparicio RN [address] [facility] [place] [address] Primary Care Assembly Line Leader 08/28/22 11/26/22 Workers' Compensation Claims Examiner Relationship Specialty Start Date End Date Agustin Barahona, BUILDING INSPECTION ENGINEER.MANAGER PHARMACY [address] [facility] [address] [place] [address] PCP - General Family Medicine 06/23/22 Maryan Rick DO [address] [facility] [address] [place] [address] Referring Internal Medicine 07/06/21 Sejal Calvin, BUILDING INSPECTION ENGINEER.MANAGER PHARMACY [address] [place] [address] Referring Family Medicine 12/04/21 Krupa Aparicio, RN [address] [facility] [place] [address] Primary Care Assembly Line Leader 08/28/22 11/26/22 Workers' Compensation Claims Examiner Relationship Specialty Start Date End Date Agustin Barahona, BUILDING INSPECTION ENGINEER.MANAGER PHARMACY 1945 [facility] [address] [place] [address] PCP - General Family Medicine 06/23/22 Maryan Rick, DO [address] [facility] [address] [place] [address] Referring Internal Medicine 07/06/21 Sejal Calvin, BUILDING INSPECTION ENGINEER.MANAGER PHARMACY [address] [place] [address] Referring Family Medicine 12/04/21 Krupa Aparicio RN [address] [place], [place] [id number] Primary Care Assembly Line Leader 08/28/22 11/26/22 Workers' Compensation Claims Examiner Relationship Specialty Start Date End Date Agustin Barahona, BUILDING INSPECTION ENGINEER.MANAGER PHARMACY [address] [facility] [address] [place] [address] PCP - General Family Medicine 06/23/22 Maryan Rick DO [address] [place] [facility] [address] [place] [address] Referring Internal Medicine 07/06/21 Sejal Calvin, BUILDING INSPECTION ENGINEER.MANAGER PHARMACY [address] [place] [address] Referring Family Medicine 12/04/21 Krupa Aparicio RN [address] [place], [place] [id number] Primary Care Assembly Line Leader 08/28/22 11/26/22 Workers' Compensation Claims Examiner Relationship Specialty Start Date End Date Agustin Barahona, BUILDING INSPECTION ENGINEER.MANAGER PHARMACY [address] [facility] [address] [place] [address] PCP - General Family Medicine 06/23/22 Maryan Rick DO [address] [facility] [address] [place] [address] Referring Internal Medicine 07/06/21 Sejal Calvin, BUILDING INSPECTION ENGINEER.MANAGER PHARMACY [address] [place] [address] Referring Family Medicine 12/04/21 Krupa Aparicio RN [address] [place], [place] [id number] Primary Care Assembly Line Leader 08/28/22 11/26/22 Workers' Compensation Claims Examiner Relationship Specialty Start Date End Date Agustin Barahona, BUILDING INSPECTION ENGINEER.MANAGER PHARMACY [address] [facility] [address] [place] [address] PCP - General Family Medicine 06/23/22 Maryan Rick, DO [address] [place] [address] [facility] [address] [place] [address] Referring Internal Medicine 07/06/21 Sejal Calvin, BUILDING INSPECTION ENGINEER.MANAGER PHARMACY [address] [place] [address] Referring Family Medicine 12/04/21 Krupa Aparicio, RN [address] [place] [address] Primary Care Assembly Line Leader 08/28/22 11/26/22 Workers' Compensation Claims Examiner Relationship Specialty Start Date End Date Agustin Barahona, BUILDING INSPECTION ENGINEER.MANAGER PHARMACY [address] [facility] [address] [place] [address] PCP - General Family Medicine 06/23/22 Maryan Rick, DO [address] [place] [address] [facility] [address] [place] [address] Referring Internal Medicine 07/06/21 Sejal Calvin, BUILDING INSPECTION ENGINEER.MANAGER PHARMACY [address] [place] [address] Referring Family Medicine 12/04/21 Krupa Aparicio RN [address] [facility], [place] [id number] Primary Care Assembly Line Leader 08/28/22 11/26/22 Workers' Compensation Claims Examiner Relationship Specialty Start Date End Date Agustin Barahona, BUILDING INSPECTION ENGINEER.MANAGER PHARMACY [address] [facility] [address] [place] [address] PCP - General Family Medicine 06/23/22 Maryan Rick, DO [address] [place] [address] [facility] [address] [place] [address] Referring Internal Medicine 07/06/21 Sejal Calvin, BUILDING INSPECTION ENGINEER.MANAGER PHARMACY [address] [place] [address] Referring Family Medicine 12/04/21 Krupa Aparicio RN [address] [facility], [place] [id number] Primary Care Assembly Line Leader 08/28/22 11/26/22 Workers' Compensation Claims Examiner Relationship Specialty Start Date End Date Agustin Barahona, BUILDING INSPECTION ENGINEER.MANAGER PHARMACY [address] [facility] [address] [place] [address] PCP - General Family Medicine 06/23/22 Maryan Rick, DO [address] [place] [address] [facility] [address] [place] [address] Referring Internal Medicine 07/06/21 Sejal Calvin, BUILDING INSPECTION ENGINEER.MANAGER PHARMACY [address] [place] [address] Referring Family Medicine 12/04/21 Krupa Aparicio RN [address] [facility], [place] [id number] Primary Care Assembly Line Leader 08/28/22 01/29/23 Workers' Compensation Claims Examiner Relationship Specialty Start Date End Date Agustin Barahona, BUILDING INSPECTION ENGINEER.MANAGER PHARMACY [address] [facility] [address] [place] [address] PCP - General Family Medicine 06/23/22 Maryan Rick DO [address] [address] [place] [address] Referring Internal Medicine 07/06/21 Sejal Calvin, BUILDING INSPECTION ENGINEER.MANAGER PHARMACY [address] [place] [address] Referring Family Medicine 12/04/21 Krupa Aparicio RN [address] [place], [place] [id number] Primary Care Assembly Line Leader 08/28/22 01/29/23 Workers' Compensation Claims Examiner Relationship Specialty Start Date End Date Agustin Barahona, BUILDING INSPECTION ENGINEER.MANAGER PHARMACY [address] [facility] [address] [place] [address] PCP - General Family Medicine 06/23/22 Maryan Rick DO [address] [facility] [address] [place] [address] Referring Internal Medicine 07/06/21 Sejal Calvin, BUILDING INSPECTION ENGINEER.MANAGER PHARMACY [address] [place] [address] Referring Family Medicine 12/04/21 Krupa Aparicio RN [address] [place] [address] Primary Care Assembly Line Leader 08/28/22 01/29/23 Workers' Compensation Claims Examiner Relationship Specialty Start Date End Date Agustin Barahona, BUILDING INSPECTION ENGINEER.MANAGER PHARMACY [address] [facility] [address] [place] [address] PCP - General Family Medicine 06/23/22 Maryan Rick DO [address] [address] [place] [address] Referring Internal Medicine 07/06/21 Sejal Calvin, BUILDING INSPECTION ENGINEER.MANAGER PHARMACY [address] [place] [address] Referring Family Medicine 12/04/21 Krupa Aparicio, RN [address] [facility] [place] [address] Primary Care Assembly Line Leader 08/28/22 01/29/23 Workers' Compensation Claims Examiner Relationship Specialty Start Date End Date Agustin Barahona, BUILDING INSPECTION ENGINEER.MANAGER PHARMACY [address] [facility] [address] [place] [address] PCP - General Family Medicine 06/23/22 Maryan Rick DO [address] [address] [place] [address] Referring Internal Medicine 07/06/21 Sejal Calvin, BUILDING INSPECTION ENGINEER.MANAGER PHARMACY [address] [place] [address] Referring Family Medicine 12/04/21 Krupa Aparicio RN [address] [facility] [place] [address] Primary Care Assembly Line Leader 08/28/22 01/29/23 Workers' Compensation Claims Examiner Relationship Specialty Start Date End Date Agustin Barahona, BUILDING INSPECTION ENGINEER.MANAGER PHARMACY [address] [facility] [address] [place] [address] PCP - General Family Medicine 06/23/22 Maryan Rick, DO [address] [place] [address] [place] [address] Referring Internal Medicine 07/06/21 Sejal Calvin, BUILDING INSPECTION ENGINEER.MANAGER PHARMACY [address] [place] [address] Referring Family Medicine 12/04/21 Krupa Aparicio RN [address] [facility] [place] [address] Primary Care Assembly Line Leader 08/28/22 01/29/23 Workers' Compensation Claims Examiner Relationship Specialty Start Date End Date Agustin Barahona, BUILDING INSPECTION ENGINEER.MANAGER PHARMACY [address] [facility] [address] [place] [address] PCP - General Family Medicine 06/23/22 Maryan Rick, [address] [address] [facility] [address] [place] [address] Referring Internal Medicine 07/06/21 Sejal Calvin, BUILDING INSPECTION ENGINEER.MANAGER PHARMACY [address] [place] [address] Referring Family Medicine 12/04/21 Krupa Aparicio, RN [address] [place], [place] [phone] Primary Care Assembly Line Leader 08/28/22 01/29/23 Workers' Compensation Claims Examiner Relationship Specialty Start Date End Date Agustin Barahona, BUILDING INSPECTION ENGINEER.MANAGER PHARMACY [address] [facility] [address] [place] [address] PCP - General Family Medicine 06/23/22 Maryan Rick, [address] [place] [address] [facility] [address] [place] [address] Referring Internal Medicine 07/06/21 Sejal Calvin, BUILDING INSPECTION ENGINEER.MANAGER PHARMACY [address] [place] [address] Referring Family Medicine 12/04/21 Krupa Aparicio RN [address] [place] [address] Primary Care Assembly Line Leader 08/28/22 01/29/23 Workers' Compensation Claims Examiner Relationship Specialty Start Date End Date Agustin Barahona, BUILDING INSPECTION ENGINEER.MANAGER PHARMACY [address] [facility] [address] [place] [address] PCP - General Family Medicine 06/23/22 Maryan Rick, [address] [place] [address] [facility] [address] [place], [place] [id number] Referring Internal Medicine 07/06/21 Susan Cuello, [facility] [address] [place] [address] Pharmacist Primary Care 08/05/21 07/05/22 Sejal Calvin, BUILDING INSPECTION ENGINEER.MANAGER PHARMACY [address] [place] [address] Referring Family Medicine 12/04/21 Krupa Aparicio, ROYCE [address] [place], [place] [phone] Primary Care Assembly Line Leader 08/28/22 01/29/23 Workers' Compensation Claims Examiner Relationship Specialty Start Date End Date Agustin Barahona, BUILDING INSPECTION ENGINEER.MANAGER PHARMACY [address] [facility] [address] [place] [address] PCP - General Family Medicine 06/23/22 Maryan Rick DO [address] [place] [address] [facility] [address] [place] [address] Referring Internal Medicine 07/06/21 Sejal Calvin, BUILDING INSPECTION ENGINEER.MANAGER PHARMACY [address] [place] [address] Referring Family Medicine 12/04/21 Krupa Aparicio RN [address] [place] [address] Primary Care Assembly Line Leader 08/28/22 01/29/23 Workers' Compensation Claims Examiner Relationship Specialty Start Date End Date Agustin Barahona, BUILDING INSPECTION ENGINEER.MANAGER PHARMACY [address] [facility] [address] [place] [address] PCP - General Family Medicine 06/23/22 Maryan Rick DO [address] [place] [address] [facility] [address] [place] [address] Referring Internal Medicine 07/06/21 Sejal Calvin, BUILDING INSPECTION ENGINEER.MANAGER PHARMACY [address] [place] [address] Referring Family Medicine 12/04/21 Krupa Aparicio RN [address] [place], [place] [phone] Primary Care Assembly Line Leader 08/28/22 01/29/23 Workers' Compensation Claims Examiner Relationship Specialty Start Date End Date Agustin Barahona, BUILDING INSPECTION ENGINEER.MANAGER PHARMACY [address] [facility] [address] [place] [address] PCP - General Family Medicine 06/23/22 Maryan Rick, DO [address] [place] [address] [place] [address] Referring Internal Medicine 07/06/21 Sejal Calvin, BUILDING INSPECTION ENGINEER.MANAGER PHARMACY [address] [place] [address] Referring Family Medicine 12/04/21 Krupa Aparicio RN [address] [place] [address] Primary Care Assembly Line Leader 08/28/22 01/29/23 Workers' Compensation Claims Examiner Relationship Specialty Start Date End Date Agustin Barahona, BUILDING INSPECTION ENGINEER.MANAGER PHARMACY [address] [facility] [address] [place] [address] PCP - General Family Medicine 06/23/22 Maryan Rick, DO [address] [place] [address] [place] [address] Referring Internal Medicine 07/06/21 Sejal Calvin, BUILDING INSPECTION ENGINEER.MANAGER PHARMACY [address] [place] [address] Referring Family Medicine 12/04/21 Krupa Aparicio RN [address] [place], [place] [phone] Primary Care Assembly Line Leader 08/28/22 01/29/23 Workers' Compensation Claims Examiner Relationship Specialty Start Date End Date Agustin Barahona, BUILDING INSPECTION ENGINEER.MANAGER PHARMACY [address] [facility] [address] [place] [address] PCP - General Family Medicine 06/23/22 Maryan Rick, DO 1 [facility] [address] [place], [place] [id number] Referring Internal Medicine 07/06/21 Sejal Calvin, BUILDING INSPECTION ENGINEER.MANAGER PHARMACY [address] [place] [address] Referring Family Medicine 12/04/21 Krupa Aparicio RN [address] [place], [place] [phone] Primary Care Assembly Line Leader 08/28/22 01/29/23 Workers' Compensation Claims Examiner Relationship Specialty Start Date End Date Lucy Quick MD [address] [address] PCP - General Internal Medicine 02/06/23 Workers' Compensation Claims Examiner Relationship Specialty Start Date End Date Lucy Quick MD [address] [facility] [address] [place] [address] PCP - General Internal Medicine 02/06/23 Workers' Compensation Claims Examiner Relationship Specialty Start Date End Date Lucy Quick MD [address] [facility] [address] [place] [address] PCP - General Internal Medicine 02/06/23 Workers' Compensation Claims Examiner Relationship Specialty Start Date End Date Lucy Quick MD [address] [facility] [address] [place] [address] PCP - General Internal Medicine 02/06/23 Workers' Compensation Claims Examiner Relationship Specialty Start Date End Date Lucy Quick MD [address] [place] [address] PCP - General Internal Medicine 02/06/23 Workers' Compensation Claims Examiner Relationship Specialty Start Date End Date Lucy Quick [address] [place] [id number] PCP - General Internal Medicine 02/21/24 Workers' Compensation Claims Examiner Relationship Specialty Start Date End Date BalbinaalistairLucy [address] [place] [id number] PCP - General Internal Medicine 02/21/24 Team [...] or prosecute any alcohol or drug abuse patient.[facility] CenterIn the event this information is protected by the Federal Confidentiality of Alcohol and Drug Abuse Patient Records regulations: The Federal rules restrict any use of the information to criminally investigate or prosecute any alcohol or drug abuse patient.[facility] CenterIn the event this information is protected by the Federal Confidentiality of Alcohol and Drug Abuse Patient Records regulations: The Federal rules restrict any use of the information to criminally investigate or prosecute any alcohol or drug abuse patient.[facility] CenterIn the event this information is protected by the Federal Confidentiality of Alcohol and Drug Abuse Patient Records regulations: The Federal rules restrict any use of the information to criminally investigate or prosecute any alcohol or drug abuse patient.[facility] CenterIn the event this information is protected by the Federal Confidentiality of Alcohol and Drug Abuse Patient Records regulations: The Federal rules restrict any use of the information to criminally investigate or prosecute any alcohol or drug abuse patient.[facility] CenterIn the event this information is protected by the Federal Confidentiality of Alcohol and Drug Abuse Patient Records regulations: The Federal rules restrict any use of the information to criminally investigate or prosecute any alcohol or drug abuse patient.[facility] CenterIn the event this information is protected by the Federal Confidentiality of Alcohol and Drug Abuse Patient Records regulations: The Federal rules restrict any use of the information to criminally investigate or prosecute any alcohol or drug abuse patient.[facility] CenterIn the event this information is protected by the Federal Confidentiality of Alcohol and Drug Abuse Patient Records regulations: The Federal rules restrict any use of the information to criminally investigate or prosecute any alcohol or drug abuse patient.[facility] CenterIn the event this information is protected by the Federal Confidentiality of Alcohol and Drug Abuse Patient Records regulations: The Federal rules restrict any use of the information to criminally investigate or prosecute any alcohol or drug abuse patient.[facility] CenterIn the event this information is protected by the Federal Confidentiality of Alcohol and Drug Abuse Patient Records regulations: The Federal rules restrict any use of the information to criminally investigate or prosecute any alcohol or drug abuse patient.[facility] CenterIn the event this information is protected by the Federal Confidentiality of Alcohol and Drug Abuse Patient Records regulations: The Federal rules restrict any use of the information to criminally investigate or prosecute any alcohol or drug abuse patient.[facility] CenterIn the event this information is protected by the Federal Confidentiality of Alcohol and Drug Abuse Patient Records regulations: The Federal rules restrict any use of the information to criminally investigate or prosecute any alcohol or drug abuse patient.[facility] CenterIn the event this information is protected by the Federal Confidentiality of Alcohol and Drug Abuse Patient Records regulations: The Federal rules restrict any use of the information to criminally investigate or prosecute any alcohol or drug abuse patient.[facility] CenterIn the event this information is protected by the Federal Confidentiality of Alcohol and Drug Abuse Patient Records regulations: The Federal rules restrict any use of the information to criminally investigate or prosecute any alcohol or drug abuse patient.[facility] CenterIn the event this information is protected by the Federal Confidentiality of Alcohol and Drug Abuse Patient Records regulations: The Federal rules restrict any use of the information to criminally investigate or prosecute any alcohol or drug abuse patient.[facility] CenterIn the event this information is protected by the Federal Confidentiality of Alcohol and Drug Abuse Patient Records regulations: The Federal rules restrict any use of the information to criminally investigate or prosecute any alcohol or drug abuse patient.[facility] CenterIn the event this information is protected by the Federal Confidentiality of Alcohol and Drug Abuse Patient Records regulations: The Federal rules restrict any use of the information to criminally investigate or prosecute any alcohol or drug abuse patient.[facility] CenterIn the event this information is protected by the Federal Confidentiality of Alcohol and Drug Abuse Patient Records regulations: The Federal rules restrict any use of the information to criminally investigate or prosecute any alcohol or drug abuse patient.[facility] CenterIn the event this information is protected by the Federal Confidentiality of Alcohol and Drug Abuse Patient Records regulations: The Federal rules restrict any use of the information to criminally investigate or prosecute any alcohol or drug abuse patient.[facility] CenterIn the event this information is protected by the Federal Confidentiality of Alcohol and Drug Abuse Patient Records regulations: The Federal rules restrict any use of the information to criminally investigate or prosecute any alcohol or drug abuse patient.[facility] CenterIn the event this information is protected by the Federal Confidentiality of Alcohol and Drug Abuse Patient Records regulations: The Federal rules restrict any use of the information to criminally investigate or prosecute any alcohol or drug abuse patient.[facility] CenterIn the event this information is protected by the Federal Confidentiality of Alcohol and Drug Abuse Patient Records regulations: The Federal rules restrict any use of the information to criminally investigate or prosecute any alcohol or drug abuse patient.[facility] CenterIn the event this information is protected by the Federal Confidentiality of Alcohol and Drug Abuse Patient Records regulations: The Federal rules restrict any use of the information to criminally investigate or prosecute any alcohol or drug abuse patient.[facility] CenterIn the event this information is protected by the Federal Confidentiality of Alcohol and Drug Abuse Patient Records regulations: The Federal rules restrict any use of the information to criminally investigate or prosecute any alcohol or drug abuse patient.[facility] CenterIn the event this information is protected by the Federal Confidentiality of Alcohol and Drug Abuse Patient Records regulations: The Federal rules restrict any use of the information to criminally investigate or prosecute any alcohol or drug abuse patient.[facility] CenterIn the event this information is protected by the Federal Confidentiality of Alcohol and Drug Abuse Patient Records regulations: The Federal rules restrict any use of the information to criminally investigate or prosecute any alcohol or drug abuse patient.[facility] CenterIn the event this information is protected by the Federal Confidentiality of Alcohol and Drug Abuse Patient Records regulations: The Federal rules restrict any use of the information to criminally investigate or prosecute any alcohol or drug abuse patient.[facility] CenterIn the event this information is protected by the Federal Confidentiality of Alcohol and Drug Abuse Patient Records regulations: The Federal rules restrict any use of the information to criminally investigate or prosecute any alcohol or drug abuse patient.[facility] CenterIn the event this information is protected by the Federal Confidentiality of Alcohol and Drug Abuse Patient Records regulations: The Federal rules restrict any use of the information to criminally investigate or prosecute any alcohol or drug abuse patient.[facility] CenterIn the event this information is protected by the Federal Confidentiality of Alcohol and Drug Abuse Patient Records regulations: The Federal rules restrict any use of the information to criminally investigate or prosecute any alcohol or drug abuse patient.[facility] CenterIn the event this information is protected by the Federal Confidentiality of Alcohol and Drug Abuse Patient Records regulations: The Federal rules restrict any use of the information to criminally investigate or prosecute any alcohol or drug abuse patient.[facility] CenterIn the event this information is protected by the Federal Confidentiality of Alcohol and Drug Abuse Patient Records regulations: The Federal rules restrict any use of the information to criminally investigate or prosecute any alcohol or drug abuse patient.[facility] CenterIn the event this information is protected by the Federal Confidentiality of Alcohol and Drug Abuse Patient Records regulations: The Federal rules restrict any use of the information to criminally investigate or prosecute any alcohol or drug abuse patient.[facility] CenterIn the event this information is protected by the Federal Confidentiality of Alcohol and Drug Abuse Patient Records regulations: The Federal rules restrict any use of the information to criminally investigate or prosecute any alcohol or drug abuse patient.[facility] CenterIn the event this information is [...] or prosecute any alcohol or drug abuse patient.[facility] CenterIn the event this information is protected by the Federal Confidentiality of Alcohol and Drug Abuse Patient Records regulations: The Federal rules restrict any use of the information to criminally investigate or prosecute any alcohol or drug abuse patient.[facility] CenterIn the event this information is protected by the Federal Confidentiality of Alcohol and Drug Abuse Patient Records regulations: The Federal rules restrict any use of the information to criminally investigate or prosecute any alcohol or drug abuse patient.[facility] CenterIn the event this information is protected by the Federal Confidentiality of Alcohol and Drug Abuse Patient Records regulations: The Federal rules restrict any use of the information to criminally investigate or prosecute any alcohol or drug abuse patient.[facility] CenterIn the event this information is protected by the Federal Confidentiality of Alcohol and Drug Abuse Patient Records regulations: The Federal rules restrict any use of the information to criminally investigate or prosecute any alcohol or drug abuse patient.[facility] CenterIn the event this information is protected by the Federal Confidentiality of Alcohol and Drug Abuse Patient Records regulations: The Federal rules restrict any use of the information to criminally investigate or prosecute any alcohol or drug abuse patient.[facility] CenterIn the event this information is protected by the Federal Confidentiality of Alcohol and Drug Abuse Patient Records regulations: The Federal rules restrict any use of the information to criminally investigate or prosecute any alcohol or drug abuse patient.[facility] CenterIn the event this information is protected by the Federal Confidentiality of Alcohol and Drug Abuse Patient Records regulations: The Federal rules restrict any use of the information to criminally investigate or prosecute any alcohol or drug abuse patient.[facility] CenterIn the event this information is protected by the Federal Confidentiality of Alcohol and Drug Abuse Patient Records regulations: The Federal rules restrict any use of the information to criminally investigate or prosecute any alcohol or drug abuse patient.[facility] CenterIn the event this information is protected by the Federal Confidentiality of Alcohol and Drug Abuse Patient Records regulations: The Federal rules restrict any use of the information to criminally investigate or prosecute any alcohol or drug abuse patient.[facility] CenterIn the event this information is protected by the Federal Confidentiality of Alcohol and Drug Abuse Patient Records regulations: The Federal rules restrict any use of the information to criminally investigate or prosecute any alcohol or drug abuse patient.[facility] CenterIn the event this information is protected by the Federal Confidentiality of Alcohol and Drug Abuse Patient Records regulations: The Federal rules restrict any use of the information to criminally investigate or prosecute any alcohol or drug abuse patient.[facility] CenterIn the event this information is protected by the Federal Confidentiality of Alcohol and Drug Abuse Patient Records regulations: The Federal rules restrict any use of the information to criminally investigate or prosecute any alcohol or drug abuse patient.[facility] CenterIn the event this information is protected by the Federal Confidentiality of Alcohol and Drug Abuse Patient Records regulations: The Federal rules restrict any use of the information to criminally investigate or prosecute any alcohol or drug abuse patient.[facility] CenterIn the event this information is protected by the Federal Confidentiality of Alcohol and Drug Abuse Patient Records regulations: The Federal rules restrict any use of the information to criminally investigate or prosecute any alcohol or drug abuse patient.[facility] CenterIn the event this information is protected by the Federal Confidentiality of Alcohol and Drug Abuse Patient Records regulations: The Federal rules restrict any use of the information to criminally investigate or prosecute any alcohol or drug abuse patient.[facility] CenterIn the event this information is protected by the Federal Confidentiality of Alcohol and Drug Abuse Patient Records regulations: The Federal rules restrict any use of the information to criminally investigate or prosecute any alcohol or drug abuse patient.[facility] CenterIn the event this information is protected by the Federal Confidentiality of Alcohol and Drug Abuse Patient Records regulations: The Federal rules restrict any use of the information to criminally investigate or prosecute any alcohol or drug abuse patient.[facility] CenterIn the event this information is protected by the Federal Confidentiality of Alcohol and Drug Abuse Patient Records regulations: The Federal rules restrict any use of the information to criminally investigate or prosecute any alcohol or drug abuse patient.[facility] CenterIn the event this information is protected by the Federal Confidentiality of Alcohol and Drug Abuse Patient Records regulations: The Federal rules restrict any use of the information to criminally investigate or prosecute any alcohol or drug abuse patient.[facility] CenterIn the event this information is protected by the Federal Confidentiality of Alcohol and Drug Abuse Patient Records regulations: The Federal rules restrict any use of the information to criminally investigate or prosecute any alcohol or drug abuse patient.[facility] CenterIn the event this information is protected by the Federal Confidentiality of Alcohol and Drug Abuse Patient Records regulations: The Federal rules restrict any use of the information to criminally investigate or prosecute any alcohol or drug abuse patient.[facility] CenterIn the event this information is protected by the Federal Confidentiality of Alcohol and Drug Abuse Patient Records regulations: The Federal rules restrict any use of the information to criminally investigate or prosecute any alcohol or drug abuse patient.[facility] CenterIn the event this information is protected by the Federal Confidentiality of Alcohol and Drug Abuse Patient Records regulations: The Federal rules restrict any use of the information to criminally investigate or prosecute any alcohol or drug abuse patient.[facility] CenterIn the event this information is protected by the Federal Confidentiality of Alcohol and Drug Abuse Patient Records regulations: The Federal rules restrict any use of the information to criminally investigate or prosecute any alcohol or drug abuse patient.[facility] CenterIn the event this information is protected by the Federal Confidentiality of Alcohol and Drug Abuse Patient Records regulations: The Federal rules restrict any use of the information to criminally investigate or prosecute any alcohol or drug abuse patient.[facility] CenterIn the event this information is protected by the Federal Confidentiality of Alcohol and Drug Abuse Patient Records regulations: The Federal rules restrict any use of the information to criminally investigate or prosecute any alcohol or drug abuse patient.[facility] CenterIn the event this information is protected by the Federal Confidentiality of Alcohol and Drug Abuse Patient Records regulations: The Federal rules restrict any use of the information to criminally investigate or prosecute any alcohol or drug abuse patient.[facility] CenterIn the event this information is protected by the Federal Confidentiality of Alcohol and Drug Abuse Patient Records regulations: The Federal rules restrict any use of the information to criminally investigate or prosecute any alcohol or drug abuse patient.[facility] CenterIn the event this information is protected by the Federal Confidentiality of Alcohol and Drug Abuse Patient Records regulations: The Federal rules restrict any use of the information to criminally investigate or prosecute any alcohol or drug abuse patient.[facility] CenterIn the event this information is protected by the Federal Confidentiality of Alcohol and Drug Abuse Patient Records regulations: The Federal rules restrict any use of the information to criminally investigate or prosecute any alcohol or drug abuse patient.[facility] CenterIn the event this information is protected by the Federal Confidentiality of Alcohol and Drug Abuse Patient Records regulations: The Federal rules restrict any use of the information to criminally investigate or prosecute any alcohol or drug abuse patient.[facility] CenterIn the event this information is protected by the Federal Confidentiality of Alcohol and Drug Abuse Patient Records regulations: The Federal rules restrict any use of the information to criminally investigate or prosecute any alcohol or drug abuse patient.[facility] CenterIn the event this information is protected by the Federal Confidentiality of Alcohol and Drug Abuse Patient Records regulations: The Federal rules restrict any use of the information to criminally investigate or prosecute any alcohol or drug abuse patient.[facility] CenterIn the event this information is protected by the Federal Confidentiality of Alcohol and Drug Abuse Patient Records regulations: The Federal rules restrict any use of the information to criminally investigate or prosecute any alcohol or drug abuse patient.[facility] CenterIn the event this information is protected by the Federal Confidentiality of Alcohol and Drug Abuse Patient Records regulations: The Federal rules restrict any use of the information to criminally investigate or prosecute any alcohol or drug abuse patient.[facility] CenterIn the event this information is protected by the Federal Confidentiality of Alcohol and Drug Abuse Patient Records regulations: The Federal rules restrict any use of the information to criminally investigate or prosecute any alcohol or drug abuse patient.[facility] CenterIn the event this information is protected by the Federal Confidentiality of Alcohol and Drug Abuse Patient Records regulations: The Federal rules restrict any use of the information to criminally investigate or prosecute any alcohol or drug abuse patient.[facility] CenterIn the event this information is protected by the Federal Confidentiality of Alcohol and Drug Abuse Patient Records regulations: The Federal rules restrict any use of the information to criminally investigate or prosecute any alcohol or drug abuse patient.[facility] CenterIn the event this information is protected by the Federal Confidentiality of Alcohol and Drug Abuse Patient Records regulations: The Federal rules restrict any use of the information to criminally investigate or prosecute any alcohol or drug abuse patient.[facility] CenterIn the event this information is protected by the Federal Confidentiality of Alcohol and Drug Abuse Patient Records regulations: The Federal rules restrict any use of the information to criminally investigate or prosecute any alcohol or drug abuse patient.[facility] CenterIn the event this information is protected by the Federal Confidentiality of Alcohol and Drug Abuse Patient Records regulations: The Federal rules restrict any use of the information to criminally investigate or prosecute any alcohol or drug abuse patient.[facility] CenterIn the event this information is protected by the Federal Confidentiality of Alcohol and Drug Abuse Patient Records regulations: The Federal rules restrict any use of the information to criminally investigate or prosecute any alcohol or drug abuse patient.[facility] CenterIn the event this information is protected by the Federal Confidentiality of Alcohol and Drug Abuse Patient Records regulations: The Federal rules restrict any use of the information to criminally investigate or prosecute any alcohol or drug abuse patient.[facility] CenterIn the event this information is protected by the Federal Confidentiality of Alcohol and Drug Abuse Patient Records regulations: The Federal rules restrict any use of the information to criminally investigate or prosecute any alcohol or drug abuse patient.[facility] CenterIn the event this information is protected by the Federal Confidentiality of Alcohol and Drug Abuse Patient Records regulations: The Federal rules restrict any use of the information to criminally investigate or prosecute any alcohol or drug abuse patient.[facility] CenterIn the event this information is protected by the Federal Confidentiality of Alcohol and Drug Abuse Patient Records regulations: The Federal rules restrict any use of the information to criminally investigate or prosecute any alcohol or drug abuse patient.[facility] CenterIn the event this information is protected by the Federal Confidentiality of Alcohol and Drug Abuse Patient Records regulations: The Federal rules restrict any use of the information to criminally investigate or prosecute any alcohol or drug abuse patient.[facility] CenterIn the event this information is protected by the Federal Confidentiality of Alcohol and Drug Abuse Patient Records regulations: The Federal rules restrict any use of the information to criminally investigate or prosecute any alcohol or drug abuse patient.[facility] CenterIn the event this information is [...] or prosecute any alcohol or drug abuse patient.[facility] CenterIn the event this information is protected by the Federal Confidentiality of Alcohol and Drug Abuse Patient Records regulations: The Federal rules restrict any use of the information to criminally investigate or prosecute any alcohol or drug abuse patient.[facility] CenterIn the event this information is protected by the Federal Confidentiality of Alcohol and Drug Abuse Patient Records regulations: The Federal rules restrict any use of the information to criminally investigate or prosecute any alcohol or drug abuse patient.[facility] CenterIn the event this information is protected by the Federal Confidentiality of Alcohol and Drug Abuse Patient Records regulations: The Federal rules restrict any use of the information to criminally investigate or prosecute any alcohol or drug abuse patient.[facility] CenterIn the event this information is protected by the Federal Confidentiality of Alcohol and Drug Abuse Patient Records regulations: The Federal rules restrict any use of the information to criminally investigate or prosecute any alcohol or drug abuse patient.[facility] CenterIn the event this information is protected by the Federal Confidentiality of Alcohol and Drug Abuse Patient Records regulations: The Federal rules restrict any use of the information to criminally investigate or prosecute any alcohol or drug abuse patient.[facility] CenterIn the event this information is protected by the Federal Confidentiality of Alcohol and Drug Abuse Patient Records regulations: The Federal rules restrict any use of the information to criminally investigate or prosecute any alcohol or drug abuse patient.[facility] CenterIn the event this information is protected by the Federal Confidentiality of Alcohol and Drug Abuse Patient Records regulations: The Federal rules restrict any use of the information to criminally investigate or prosecute any alcohol or drug abuse patient.[facility] CenterIn the event this information is protected by the Federal Confidentiality of Alcohol and Drug Abuse Patient Records regulations: The Federal rules restrict any use of the information to criminally investigate or prosecute any alcohol or drug abuse patient.[facility] CenterIn the event this information is protected by the Federal Confidentiality of Alcohol and Drug Abuse Patient Records regulations: The Federal rules restrict any use of the information to criminally investigate or prosecute any alcohol or drug abuse patient.[facility] CenterIn the event this information is protected by the Federal Confidentiality of Alcohol and Drug Abuse Patient Records regulations: The Federal rules restrict any use of the information to criminally investigate or prosecute any alcohol or drug abuse patient.[facility] CenterIn the event this information is protected by the Federal Confidentiality of Alcohol and Drug Abuse Patient Records regulations: The Federal rules restrict any use of the information to criminally investigate or prosecute any alcohol or drug abuse patient.[facility] CenterIn the event this information is protected by the Federal Confidentiality of Alcohol and Drug Abuse Patient Records regulations: The Federal rules restrict any use of the information to criminally investigate or prosecute any alcohol or drug abuse patient.[facility] CenterIn the event this information is protected by the Federal Confidentiality of Alcohol and Drug Abuse Patient Records regulations: The Federal rules restrict any use of the information to criminally investigate or prosecute any alcohol or drug abuse patient.[facility] CenterIn the event this information is protected by the Federal Confidentiality of Alcohol and Drug Abuse Patient Records regulations: The Federal rules restrict any use of the information to criminally investigate or prosecute any alcohol or drug abuse patient.[facility] CenterIn the event this information is protected by the Federal Confidentiality of Alcohol and Drug Abuse Patient Records regulations: The Federal rules restrict any use of the information to criminally investigate or prosecute any alcohol or drug abuse patient.[facility] CenterIn the event this information is protected by the Federal Confidentiality of Alcohol and Drug Abuse Patient Records regulations: The Federal rules restrict any use of the information to criminally investigate or prosecute any alcohol or drug abuse patient.[facility] Goals (unrecognized section and content) [...] BE BASED ON THE PRIMARY CLINICAL RECORDS. [facility] [employer] [facility]. provides no warranty or guarantee of the accuracy or completeness of information in this document.
== END ==
LOC: OLS.SANC 05:00
PROVIDERS: Visit Provider Internal Medicine
DX: E11.9 Type 2 diabetes mellitus without complications (principal)
CPT/HCPCS: 36415; 83036

== ENCOUNTER → 2025-08-26 | Outpatient (REF) | payer MEDICARE, SELFPAY ==
[2025-08-27 08:41] LABS: Mucous, Urine 0 SEEN /hpf (<or=2+); Red Blood Cells-Urine 0 SEEN /hpf (0-5)
[2025-08-27 09:21] LABS: Color, Urine Yellow (Yellow); Glucose, Dipstick 1000 mg/dl (Normal); Ketone-Dipstick Negative (Negative); Leukocyte Esterase-Dipstick 500 /ul (Negative); Nitrite-Dipstick Negative (Negative); Occult Blood-Urine 50 /ul (Negative); Protein-Dipstick 30 mg/dl (Negative); Specific Gravity, Urine 1.015 (1.002-1.030); Urine Bilirubin Dipstick Negative (Negative)
[2025-08-27 09:30] LABS: Squamous Epithelial Cells - UA 0-5 SEEN /hpf (5-10)
== END ==
LOC: OLS.SANC 21:00
PROVIDERS: Visit Provider Internal Medicine
DX: N39.0 Urinary tract infection, site not specified (principal)
CPT/HCPCS: 81001; 87077; 87086; 87088; 87186

== ENCOUNTER → 2025-10-02 05:00 | Outpatient (REF) | payer MEDICARE, SELFPAY ==
--- OUTSIDE RECORDS SUMMARY | 2025-10-02 04:12 | XMS RPT_ITS | CCD ---
Author Organization [facility] Care Team Providers Care Operators School Manager Name Role Phone Moe Meyer MD Primary Care Provider Prabhjot RUIZ, Maryan J Unavailable [facility], Susan Unavailable Nikunj GUM MIXER.Sejal ROMERO Unavailable Moe Meyer MD Primary Care Provider Frankie Deng MD Primary Care Provider Frankie Deng MD Primary Care Provider Prabhjot RUIZ Maryan J Unavailable [facility], Susan Unavailable Nikunj GUM MIXER.Sejal ROMERO Unavailable [phone] Frankie Deng MD Primary Care Provider [phone] Yennifer GUM MIXER.Agustin ROMERO Primary Care Provider Nikunj MUNIZN.Sejal ROMERO Unavailable [phone] Yennifer GUM MIXER.Agustin ROMERO Primary Care Provider Markus CRANE, Krupa N Unavailable Prabhjot RUIZ, Maryan J Unavailable [phone] Nikunj GUM MIXER.Sejal ROMERO Unavailable [phone] Yennifer GUM MIXER.Agustin ROMERO Primary Care Provider Markus CRANE, Krupa N Unavailable MOE MEYER Referring Unavailable MOE MEYER Referring [...] Care Unavailable Lucy Quick Primary Care Provider [phone] Lucy Quick Primary Care Provider LUCY QUICK Primary Care Unavailable SHMUEL TREVINO Admitting Unavailable JOSE LYNN Consulting Unavailable CHEKO MENDOZA Attending Unavailable LUCY QUICK Primary Care Unavailable EBONI FLETCHER Admitting Unavailable CARMEN TALAMANTES Attending Unavailable SINDY, JOSE Consulting Unavailable Katsaros OLS, Lucy Attending [...] adverse reactions to drug 2 Itching, Rash [facility] (20 sources) dulaglutide; Translations: [DULAGLUTIDE] Drug Allergy 2 GI Upset [facility] Work Phone: (20 sources) empagliflozin; Translations: [EMPAGLIFLOZIN] Drug Allergy 2 Other: See Comments [facility] Work Phone: (20 sources) HYDROmorphone; Translations: [HYDROMORPHONE (BULK)] Drug Allergy 2 Vomiting [facility] Work Phone: (4 sources) dulaglutide Drug Allergy 4 Tonara (4 sources) empagliflozin Drug Allergy 4 [facility] Medications Current Medications Medication Drug Class(es) Dates Sig (Normalized) Sig (Original) acetylcysteine 600 mg oral capsule (4 sources) Antidote, Mucolytic, Antidote for Acetaminophen Overdose take 1 capsule by mouth in the morning Acetylcysteine (N-Acetyl Cysteine) 600 MG capsule capsule Take 600 mg by mouth in the morning and 600 mg in the evening. 0 Active bismuth tribrom-petrolatum (XEROFORM) 5 X 9 " bndg (5 sources) Start: 10-26-2022 End: 11-25-2022 bismuth tribrom-petrolatum (XEROFORM) 5 X 9 " bndg Apply 1 application to affected area once daily. 50 Each 1 10/26/2022 11/25/2022 Suspended Start: 10-26-2022 End: 11-25-2022 bismuth tribrom-petrolatum ( XEROFORM) 5 X 9 " bndg Apply 1 application to affected area [...] 07-19-2022 take 1 capsule by mo [facility] twice daily cephALEXin (KEFLEX) 500 mg capsule [...] on above: Take 1 capsule by mo ut four times daily for 10 days. Take 1 capsule by mo ut twice daily. Take 1 capsule by mo ut four times daily for 14 days. Take 1 capsule by [facility] three times daily for 7 days. [...] Active Foam Bandage (ALLEVYN) 4 X 4 " bndg (5 sources) Start : 10-26 End: 11-25 Foam Bandage (ALLEVYN) 4 X 4 " bndg Apply to affected area once daily. 30 Each 1 10/26/2022 11/25/2022 Suspended Start: 10-26-2022 End: 11-25-2022 Foam Bandage (ALLEVYN) 4 X 4 " bndg Apply to affected area once daily. [...] Comment on above: Take 1 Packet by [facility] one time only for 1 dose. guaiFENesin [...] Comment on above: Take 1 capsule by [facility] twice daily for 7 days. petrolatum [...] Comment on above: Take 4 tablets by [facility] once daily for 4 days, THEN 3 tablets once daily for 3 days, THEN 2 tablets once daily for 2 days, THEN 1 tablet once daily for 1 day. Take 3 tablets by [facility] once daily for 3 doses. Take 6 tablets by [facility] once daily for 7 days, THEN [...] needed for pain. 20 ml albumin human, [facility] 250 mg/ml injection (2 sources) [...] to 3 mL/minute in patients with hypoproteinemia [id number] actuat albuterol 0.09 mg/actuat metered dose [...] or split. take 10 mg rectal ro tulalip every twenty-four hours as needed for constipation [...] Comment on above: Take 1 capsule by [facility] twice daily for 7 days. cefepime [...] notify provider. Start: 04-30-2022 15 g, Oral, MI N, Starting on 04/30/22 at 2010, Until [...] DAY docusate sodium 50 mg / sennosides, [facility] 8.6 mg oral tablet (20 [...] Active Start: 10-04-2021 take 2 tablets by mo [facility] once daily as needed for constipation 2 tablet, Oral, DAILY PRN, Constipation, Starting on Sun10/04/21 at 1024 Comment on above: Take 1 tablet by [facility] twice daily as needed for constipation. doxycycline [...] 11/02/2022 End: 02-28-2024 take 1 capsule by [facility] twice daily doxycycline hyclate (DOXY-CAPS ORAL) Take 100 mg by mouth twice daily. 0 Suspended Comment on above: Take 1 capsule by [facility] twice daily for 7 days. Take [...] once erg ocalciferol (Vitamin D-2) 1.25 MG (80001 UT) capsule Indications: Vitamin D Deficiency Take 1.25 mg by mouth 1 (one) time per week. Every 0 Active Comment on above: Take 1 capsule by mo [facility] one time a week. ertapenem (2 sources) [...] 20 mg, Oral, Daily, First dose on Sun24 at 0900 Start: 02-22-2024 End: 02-28-2024 take [...] Chronic obstructive pulmonary disease, unspecified COPD type ([facility]) Inhale 1 Inhalation as instructed once daily. [...] Inhalation, 2 TIMES DAILY, First dose on Mertzon 04/30/22 at 2030, Until Discontinued Substituted for [...] heart failure with preserved ejection fraction (HFpEF) ([facility]) Take 2 tablets by mouth once daily. 90 tablet 1 06/23/2022 08/11/2022 Discontinued Start: 03-21-2022 End: 06-23-2022 take 1 tablet by mouth once daily furosemide (LASIX) 20 mg tablet Indications: Chronic heart failure with preserved ejection fraction (HFpEF) ([facility]) Take 1 tablet by mouth once daily. [...] mouth once daily. Take 1 tablet by [facility] once daily. Take 2 tablets by [facility] once daily. TAKE 2 TABLETS BY [facility] EVERY DAY Take 1 tablet by [facility] twice daily. Take 40 mg by mouth [...] have IV access., Starting on Sun10/02/21 at 0606 After administration, attempt intravenous access [...] patient NOT ALERT or NPO., Starting on [facility] 03/06/24 at 0300, If patient does not [...] Blood sugar less than 70mg/dL, Starting on [facility] 03/06/24 at 0300, Start infusion following administration of dextrose 50% or glucagon. Start: 02-21-2024 End: 02-28-2024 12.5 g, IntraVENous, PRN, lo w blood sugar, Blood glucose less than 70 mg/dL and patient NOT ALERT or NPO., Starting on [facility] 02/21/24 at 2140, If patient does not [...] Blood sugar less than 70mg/dL, Starting on [facility] 02/21/24 at 2140, Start infusion following administration [...] minutes x2. Start: 10-02-2021 15 g, Oral, MI N, Low blood sugar, Starting on 10/02/21 [...] by mouth once daily. 30 tablet 11 07/06/2022 Active Comment on above: Take 1 [...] tablet by mac th every day Take 50 mg by mouth [...] 1000 mg oral tablet (20 sources) Start: 4 End: 4 1 g, Oral, 2 times [...] Take 1 tablet by mac every day Multivitamins-Minerals -Lutein (MULTIVITAMIN 50 PLUS) tab (7 sources) End: 02-27-2022 Nojtcalqylyia-Lfwkuwdi-Bgd ein (MULTIVITAMIN 50 PLUS) tab Take 1 [...] sedation for opioid reversal - MUST notify retirement consultant provider immediately after first dose, may give [...] Comment on above: Take 1 capsule by [facility] once daily. pantoprazole 40 mg delayed release oral tablet (20 sources) Proton Pump Inhibitor Start: 10-02-2021 take 40 mg by mouth once daily before breakfast 40 mg, Oral, DAILY BEFORE BREAKFAST, First dose on Sun05/01/22 at 0700, Until Discontinued Do not crush or break. Substituted for Omeprazole (PRILOSEC). Comment on above: Take 40 mg by mouth once daily. polyethylene glycol 3350 98162 mg powder for oral solution (20 sources) [...] Take 1 Packet by mac th once daily as needed (constipation). Take 1 Packet by mac th once daily. Dissolve dose in 4 - [...] Administer over 1 Hours, Once, On Margy 02/21/24 at 1255, For 1 dose Start: 04-30-2022 [...] IntraVENous, at 100 mL/hr, CONTINUOUS, Starting on 10/03/21 at 1115 Start: 10-02-2021 End: 10-02-2021 2,619 [...] Start: 08-27-2022 take 1 tablet by mac th once daily torsemide (SOAANZ) 40 mg tablet [...] Comment on above: Take 1 tablet by [facility] once daily. valACYclovir 500 mg oral tablet [...] Sun03/06/24 at 0900 WALKER ROLLATOR SEAT WITH 6" WHEELS - RED (20 sources) Start: 01-07-2021 End: 10-28-2022 WALKER ROLLATOR SEAT WITH 6" WHEELS - RED Indications: Chronic heart failure, unspecified heart failure type (HCC) Walker rollator with seat 1 Each 0 01/07/2021 10/28/2022 Discontinued Start: 01-07-2021 WALKER ROLLATO R SEAT WITH 6" WHEELS - RED Indications: Chronic heart failure, unspecified heart failure type (HCC) Walker rollator with seat 1 Each 0 01/07/2021 Suspended Start: 01-07-2021 WALKER ROLLATO R SEAT WITH 6" WHEELS - RED Indications: Chronic heart failure, [...] mL/hr, Administer over 120 Minutes, ONCE, On Sun10/02/21 at 0100, For 1 dose Start: 10-02-2021 End: 10-02-2021 2,000 mg, IntraVENous, at 10 0 mL/hr, Administer over 30 Minutes, ONCE, On 10/02/21 at 0100, For 1 dose (1 [...] Coronary arteriosclerosis; Translations: [Atherosclerotic heart disease of [place] coronary artery without angina pectoris] Onset: 05-01-2011 07-03-2021 Chronic Diabetes mellitus with complications (20 sources) Type 2 diabetes mellitus; Translations: [Type 2 diabetes mellitus with diabetic polyneuropathy] Onset: 10-17-2020 07-18-2021 Chronic Diabetes mellitus without complication (2 sources) Type 2 diabetes mellitus without complications; Translations: [Type 2 diabetes mellitus without complications] Onset: 04-24-2025 Chronic Disorders of lipid metabolism (20 sources) [...] (2 sources) Patient encounter status; Translations: [Other keno terminal operator (current) drug therapy] Episodic Other connective tissue [...] [Morbid obesity with BMI of 45.0-49.9, adult ([facility])] Onset: 11-10-2021 Chronic Other nutritional; endocrine; and [...] edema; Translations: [Localized edema] Onset: 02-21-2024 Episodic Residual codes; unclassified (2 sources) Disorientation, unspecified; Translations: [Disorientation, unspecified] Onset: 02-21-2024 Episodic Respiratory failure; insufficiency; arrest [...] Onset: 03-25-2022 Episodic Other aftercare (2 sources) senior care (current) use of insulin; Translations: [Type 2 diabetes mellitus with diabetic polyneuropathy, with long-term current use of insulin (HCC)] Onset: 07-18-2021 Episodic Other aftercare (1 source) Encounter for follow-up examination after completed treatment for conditions other than malignant neoplasm; Translations: [Hospital discharge follow-up] Onset: 12-19-2021 Episodic Other aftercare (1 source) Other keno terminal operator (current) drug therapy; Translations: [Other retirement (current) drug therapy] Onset: 10-31-2024 Episodic Other [...] Hallucinations, unspecified; Translations: [Hallucinations] Onset: 02-11-2023 Episodic Skin and subcutaneous tissue infections (8 sources) Cellulitis of right lower limb; Translations: [Cellulitis of right lower limb] Onset: 2022 Episodic Unclassified (1 source) Irritant contact dermatitis due to fecal, urinary or dual incontinence; Translations: [Irritant contact dermatitis due to fecal, urinary or dual incontinence] Onset: 02-21-2024 Results Test Name Value Interpretation Reference Range Facility Urine Cultureon 08-31-2025 [facility] RESULTS CALLED TO MONICA Chiu 08/31/25 1430 Merissa Locke. REPORT READ BACK BY . Urine Culture Copy of report sent to Infection Control Printer MS#[id number] 08/31/25 1431 RINA. Urine Culture Urine Culture Proteus mirabilis [place] Count 80,000-100,000 ESBL Escherichia coli ESBL Escherichia coli MARKER ESBL producing Organism Enterococcus faecalis MARKER ESBL producing OrganismA Proteus mirabilis: REACTION Enterococcus faecalis Ampicillin+Sulbac Islt ASHU <=2 Cefepime Islt ASHU <=0.12 S cefTRIAXone Islt ASHU <=0.25 Ciprofloxacin Islt ASHU >=4 R Gentamicin Islt ASHU <=1 S levoFLOXacin Islt ASHU 2 R Meropenem Islt ASHU 1 S Nitrofurantoin Islt ASHU 128 R Pip+Tazo Islt ASHU <=4 S TMP SMX Islt ASHU >=320 R ESBL Escherichia coli: REACTION Ampicillin Islt ASHU >=32 R Ampicillin+Sulbac Islt ASHU >=32 R Cefepime Islt ASHU 16 R Eravacycline Islt ASHU 0.25 cefTRIAXone Islt ASHU >=64 R Ciprofloxacin Islt ASHU >=4 R B-Lactamase Extended Susc Islt POS Gentamicin Islt ASHU <=1 S Imipenem Islt ASHU <=0.25 S levoFLOXacin Islt ASHU >=8 R Meropenem Islt ASHU <=0.25 S Nitrofurantoin Islt ASHU <=16 S Pip+Tazo Islt ASHU 16 I Tobramycin Islt ASHU >=16 R TMP SMX Islt ASHU <=20 S Enterococcus faecalis: REACTION Ampicillin Islt ASHU <=2 S Ciprofloxacin Islt ASHU >=8 R Gentamicin Synergy Susc Islt SYN-R R levoFLOXacin Islt ASHU >=8 Linezolid Islt ASHU 2 S Nitrofurantoin Islt ASHU <=16 S Streptomycin High Pot Susc Islt SYN-S S Tetracycline Islt ASHU >=16 R Vancomycin Islt ASHU 1 S Normal [facility] Comment on above: Performed By: #### M 100.2200, [id number] #### [facility] [address] [place], [address] Urinalysis, Completeon 08-27 EPI,SQUAMOUS 0-5 SEEN Normal 5-10 [facility] Comment on above: Order Comment: CLEAN CATCH Performed By: #### M 100.2200, [id number] #### [facility] [address] [place], [address] WBC 25-50 SEEN Normal 0-5 [facility] Comment on above: Order Comment: CLEAN CATCH Performed By: #### M 100.2200, [id number] #### [facility] [address] [place], [address] BACTERIA 3+ /hpf Normal None Seen [facility] Comment on above: Order Comment: CLEAN CATCH Performed By: #### M 100.2200, [id number] #### [facility] [address] [place], [address] Mucus Ql (Urine sed) 0 SEEN Normal [facility] Comment on above: Order Comment: CLEAN CATCH Performed By: #### M 100.2200, [id number] #### [facility] [address] [place], [address] RBC 0 SEEN Normal 0-5 [facility] Comment on above: Order Comment: CLEAN CATCH Performed By: #### M 100.2200, [id number] #### [facility] [address] [place], [address] Hemoglobin A1con 08-03-2025 HbA1c (Bld) [Mass fraction] 8.4 % High <=5.6 [facility] Comment on above: Order Comment: CLEAN CATCH Result Comment: Norm al < 5.7 % Prediabetic 5.7 - 6.4 % Diabetic >or= 6.5 % Please note range changes. Performed By: #### M 100.2200, [id number] #### [facility] [address] [place], [address] Basic Metabolic Profile (BMP )on 07-22-2025 BUN/CRE 29.6 RATIO High 10-20 [facility] Comment on above: Order Comment: 114-2 Performed By: #### M 100.2200, [id number] #### [facility] [address] [place], [address] Calcium [Mass/Vol] 9.2 mg/dL Normal 7.6-11.0 [facility] Comment on above: Order Comment: 114-2 Performed By: #### M 100.2200, [id number] #### [facility] [address] [place], [address] Chloride [Moles/Vol] 98 mmol/L Normal 98-108 [facility] Comment on above: Order Comment: 114-2 Performed By: #### M 100.2200, [id number] #### [facility] [address] [place], [address] CO2 [Moles/Vol] 28.7 mmol/L Normal 21.0-32.0 [facility] Comment on above: Order Comment: 114-2 Performed By: #### M 100.2200, [id number] #### [facility] [address] [place], [address] Creatinine [Mass/Vol] 1.26 mg/dL High 0.70-1.20 [facility] Comment on above: Order Comment: 114-2 Performed By: #### M 100.2200, [id number] #### [facility] [address] [place], [address] GAP 13 Normal 5-15 [facility] Comment on above: Order Comment: 114-2 Performed By: #### M 100.2200, [id number] #### [facility] [address] [place], [address] GFR/1.73 sq M.predicted among non-blacks MDRD (S/P/Bld) [Vol rate/Area] 47 mL/min/{1.73_m2} Low >60 [facility] Comment on above: Order Comment: 114-2 Result Comment: mL/m in/1.73m2 CKD-EPI Creatinine Equation (2020) Performed By: #### M 100.2200, [id number] #### [facility] [address] [place], [address] Glucose [Mass/Vol] 197 mg/dL High 70-99 [facility] Comment on above: Order Comment: 114-2 Performed By: #### M 100.2200, [id number] #### [facility] [address] [place], [address] Potassium [Moles/Vol] 4.1 mmol/L Normal 3.3-5.1 [facility] Comment on above: Order Comment: 114-2 Performed By: #### M 100.2200, [id number] #### [facility] [address] [place], [address] Sodium [Moles/Vol] 139 mmol/L Normal 133-145 [facility] Comment on above: Order Comment: 114-2 Performed By: #### M 100.2200, [id number] #### [facility] [address] [place], [address] Urea nitrogen [Mass/Vol] 37 mg/dL High 4-19 [facility] Comment on above: Order Comment: 114-2 Performed By: #### M 100.2200, [id number] #### [facility] [address] [place], [address] CBC-Complete Blood Cnt No Di ffon 07-22-2025 Erythrocyte distribution width (RBC) [Ratio] 13.2 % Normal 11.6-14.6 [facility] Comment on above: Order Comment: 114-2 Performed By: #### M 100.2200, [id number] #### [facility] [address] [place], [address] Hematocrit (Bld) [Volume fraction] 42.0 % Normal 37-47 [facility] Comment on above: Order Comment: 114-2 Performed By: #### M 100.2200, [id number] #### [facility] [address] [place], [address] Hemoglobin (Bld) [Mass/Vol] 13.5 g/dL Normal 12.0-15.0 [facility] Comment on above: Order Comment: 114-2 Performed By: #### M 100.2200, [id number] #### [facility] [address] [place], [address] MCH (RBC) [Entitic mass] 32.5 pg High 27.0-32.0 [facility] Comment on above: Order Comment: 114-2 Performed By: #### M 100.2200, [id number] #### [facility] [address] [place], [address] MCHC (RBC) [Mass/Vol] 32.1 g/dL Normal 32-36 [facility] Comment on above: Order Comment: 114-2 Performed By: #### M 100.2200, [id number] #### [facility] [address] [place], [address] MCV (RBC) [Entitic vol] 101.2 fL High 81-99 [facility] Comment on above: Order Comment: 114-2 Performed By: #### M 100.2200, [id number] #### [facility] [address] [place], [address] Platelet mean volume (Bld) [Entitic vol] 9.0 fL Normal 6.2-12.0 [facility] Comment on above: Order Comment: 114-2 Performed By: #### M 100.2200, [id number] #### [facility] [address] [place], [address] Platelets (Bld) [#/Vol] 262 10*3/uL Normal 150-450 [facility] Comment on above: Order Comment: 114-2 Performed By: #### M 100.2200, [id number] #### [facility] [address] [place], [address] RBC (Bld) [#/Vol] 4.15 10*6/uL Low 4.2-5.4 [facility] Comment on above: Order Comment: 114-2 Performed By: #### M 100.2200, [id number] #### [facility] [address] [place], [address] RDW SD 49.1 fl High 35.1-43.9 [facility] Comment on above: Order Comment: 114-2 Performed By: #### M 100.2200, [id number] #### [facility] [address] [place], [address] WBC (Bld) [#/Vol] 9.9 10*3/uL Normal 4.4-11.0 [facility] Comment on above: Order Comment: 114-2 Performed By: #### M 100.2200, [id number] #### [facility] [address] [place], [address] Basic Metabolic Profile (BMP )on 07-06-2025 BUN/CRE 36.0 RATIO High 10-20 [facility] Comment on above: Order Comment: 114.2 Performed By: #### L 500.4100, L501.9985, L500.4050, L100.0500 #### [facility] [address] [place], [address] Calcium [Mass/Vol] 9.0 mg/dL Normal 7.6-11.0 [facility] Comment on above: Order Comment: 114.2 Performed By: #### L 500.4100, L501.9985, L500.4050, L100.0500 #### [facility] [address] [place], [address] Chloride [Moles/Vol] 95 mmol/L Low 98-108 [facility] Comment on above: Order Comment: 114.2 Performed By: #### L 500.4100, [id number], L500.4050, L100.0500 #### [facility] [address] [place], [address] CO2 [Moles/Vol] 27.2 mmol/L Normal 21.0-32.0 [facility] Comment on above: Order Comment: 114.2 Performed By: #### L 500.4100, [id number], L500.4050, L100.0500 #### [facility] [address] [place], [address] Creatinine [Mass/Vol] 1.25 mg/dL High 0.70-1.20 [facility] Comment on above: Order Comment: 114.2 Performed By: #### L 500.4100, L501.9985, L500.4050, L100.0500 #### [facility] [address] [place], [address] GAP 15 Normal 5-15 [facility] Comment on above: Order Comment: 114.2 Performed By: #### L 500.4100, L501.9985, L500.4050, L100.0500 #### [facility] [address] [place], [address] GFR/1.73 sq M.predicted among non-blacks MDRD (S/P/Bld) [Vol rate/Area] 47 mL/min/{1.73_m2} Low >60 [facility] Comment on above: Order Comment: 114.2 Result Comment: mL/m in/1.73m2 CKD-EPI Creatinine Equation (2020) Performed By: #### L 500.4100, [id number], L500.4050, L100.0500 #### [facility] [address] [place], [address] Glucose [Mass/Vol] 248 mg/dL High 70-99 [facility] Comment on above: Order Comment: 114.2 Performed By: #### L 500.4100, L501.9985, L500.4050, L100.0500 #### [facility] [address] [place], [address] Potassium [Moles/Vol] 4.2 mmol/L Normal 3.3-5.1 [facility] Comment on above: Order Comment: 114.2 Performed By: #### L 500.4100, L501.9985, L500.4050, L100.0500 #### [facility] [address] [place], [address] Sodium [Moles/Vol] 138 mmol/L Normal 133-145 [facility] Comment on above: Order Comment: 114.2 Performed By: #### L 500.4100, L501.9985, L500.4050, L100.0500 #### [facility] [address] [place], [address] Urea nitrogen [Mass/Vol] 45 mg/dL High 4-19 [facility] Comment on above: Order Comment: 114.2 Performed By: #### L 500.4100, L501.9985, L500.4050, L100.0500 #### [facility] [address] [place], [address] CBC-Complete Blood Cnt No Di ffon 07-06-2025 Erythrocyte distribution width (RBC) [Ratio] 12.6 % Normal 11.6-14.6 [facility] Comment on above: Order Comment: 114.2 Performed By: #### M 100.2200, L400.0001 #### [facility] [address] [place], [address] Hematocrit (Bld) [Volume fraction] 33.7 % Low 37-47 [facility] Comment on above: Order Comment: 114.2 Performed By: #### M 100.2200, L400.0001 #### [facility] [address] [place], [address] Hemoglobin (Bld) [Mass/Vol] 10.8 g/dL Low 12.0-15.0 [facility] Comment on above: Order Comment: 114.2 Performed By: #### M 100.2200, L400.0001 #### [facility] [address] [place], [address] MCH (RBC) [Entitic mass] 32.1 pg High 27.0-32.0 [facility] Comment on above: Order Comment: 114.2 Performed By: #### M 100.2200, L400.0001 #### [facility] [address] [place], [address] MCHC (RBC) [Mass/Vol] 32.0 g/dL Normal 32-36 [facility] Comment on above: Order Comment: 114.2 Performed By: #### M 100.2200, L400.0001 #### [facility] [address] [place], [address] MCV (RBC) [Entitic vol] 100.3 fL High 81-99 [facility] Comment on above: Order Comment: 114.2 Performed By: #### M 100.2200, L400.0001 #### [facility] [address] [place], [address] Platelet mean volume (Bld) [Entitic vol] 9.3 fL Normal 6.2-12.0 [facility] Comment on above: Order Comment: 114.2 Performed By: #### M 100.2200, L400.0001 #### [facility] [address] [place], [address] Platelets (Bld) [#/Vol] 239 10*3/uL Normal 150-450 [facility] Comment on above: Order Comment: 114.2 Performed By: #### M 100.2200, L400.0001 #### [facility] [address] [place], [address] RBC (Bld) [#/Vol] 3.36 10*6/uL Low 4.2-5.4 [facility] Comment on above: Order Comment: 114.2 Performed By: #### M 100.2200, L400.0001 #### [facility] [address] [place], [address] RDW SD 46.5 fl High 35.1-43.9 [facility] Comment on above: Order Comment: 114.2 Performed By: #### M 100.2200, L400.0001 #### [facility] [address] [place], [address] WBC (Bld) [#/Vol] 9.3 10*3/uL Normal 4.4-11.0 [facility] Comment on above: Order Comment: 114.2 Performed By: #### M 100.2200, L400.0001 #### [facility] [address] [place], [place], [id number] Hemoglobin A1con 07-06-2025 HbA1c (Bld) [Mass fraction] 8.5 % High <=5.6 [facility] Comment on above: Order Comment: 114.2 Result Comment: Norm al < 5.7 % Prediabetic 5.7 - 6.4 % Diabetic >or= 6.5 % Please note range changes. Performed By: #### M 100.2200, L400.0001 #### [facility] [address] [place], [place], [id number] Urine Cultureon 05-12-2025 [facility] Urine Culture Copy of report sent to Infection Control Printer [id number] 05/11/25 1436 ASNIPES. Urine Culture Urine Culture Urine Culture Urine Culture Providencia stuartii [place] Count 50,000-80,000 Escherichia coli Escherichia coli VREFAC Beta Lactamase-Reportable Negative Vancomycin Resist. E. faecilis SSCI [place] Count 11,000-25,000 PMIR [place] Count 11,000-25,000 Staphylococcus sciuri Ampicillin Islt ASHU [...] TMP SMX Islt ASHU >=320 R Normal [facility] Comment on above: Performed By: #### M 100.2200, L400.0001 #### [facility] [address] [place], [address] Urinalysis, Completeon 05-05 EPI,SQUAMOUS 5-10 SEEN Normal 5-10 [facility] Comment on above: Order Comment: CLEAN CATCH Performed By: #### M 100.2200, L400.0001 #### [facility] [address] [place], [address] WBC 0-5 SEEN Normal 0-5 [facility] Comment on above: Order Comment: CLEAN CATCH Performed By: #### M 100.2200, L400.0001 #### [facility] [address] [place], [address] BACTERIA 0 SEEN Normal None Seen [facility] Comment on above: Order Comment: CLEAN CATCH Performed By: #### M 100.2200, L400.0001 #### [facility] [address] [place], [address] Mucus Ql (Urine sed) 0 SEEN Normal [facility] Comment on above: Order Comment: CLEAN CATCH Performed By: #### M 100.2200, L400.0001 #### [facility] [address] [place], [address] RBC 0 SEEN Normal 0-5 [facility] Comment on above: Order Comment: CLEAN CATCH Performed By: #### M 100.2200, L400.0001 #### [facility] [address] [place], [address] Basic Metabolic Profile (BMP )on 04-21-2025 BUN/CRE 25.2 RATIO High 10-20 [facility] Comment on above: Order Comment: CLEAN CATCH Performed By: #### M 100.2200, L400.0001 #### [facility] [address] [place], [address] Calcium [Mass/Vol] 8.9 mg/dL Normal 7.6-11.0 [facility] Comment on above: Order Comment: CLEAN CATCH Performed By: #### M 100.2200, L400.0001 #### [facility] [address] [place], [address] Chloride [Moles/Vol] 99 mmol/L Normal 98-108 [facility] Comment on above: Order Comment: CLEAN CATCH Performed By: #### M 100.2200, L400.0001 #### [facility] [address] [place], [address] CO2 [Moles/Vol] 30.9 mmol/L Normal 21.0-32.0 [facility] Comment on above: Order Comment: CLEAN CATCH Performed By: #### M 100.2200, L400.0001 #### [facility] [address] [place], [address] Creatinine [Mass/Vol] 1.29 mg/dL High 0.70-1.20 [facility] Comment on above: Order Comment: CLEAN CATCH Performed By: #### M 100.2200, L400.0001 #### [facility] [address] [place], [address] GAP 10 Normal 5-15 [facility] Comment on above: Order Comment: CLEAN CATCH Performed By: #### M 100.2200, L400.0001 #### [facility] [address] [place], [address] GFR/1.73 sq M.predicted among non-blacks MDRD (S/P/Bld) [Vol rate/Area] 45 mL/min/{1.73_m2} Low >60 [facility] Comment on above: Order Comment: CLEAN CATCH Result Comment: mL/m in/1.73m2 CKD-EPI Creatinine Equation (2020) Performed By: #### M 100.2200, L400.0001 #### [facility] [address] [place], [address] Glucose [Mass/Vol] 115 mg/dL High 70-99 [facility] Comment on above: Order Comment: CLEAN CATCH Performed By: #### M 100.2200, L400.0001 #### [facility] [address] [place], [address] Potassium [Moles/Vol] 3.9 mmol/L Normal 3.3-5.1 [facility] Comment on above: Order Comment: CLEAN CATCH Performed By: #### M 100.2200, L400.0001 #### [facility] [address] [place], [address] Sodium [Moles/Vol] 139 mmol/L Normal 133-145 [facility] Comment on above: Order Comment: CLEAN CATCH Performed By: #### M 100.2200, L400.0001 #### [facility] [address] [place], [address] Urea nitrogen [Mass/Vol] 33 mg/dL High 4-19 [facility] Comment on above: Order Comment: CLEAN CATCH Performed By: #### M 100.2200, L400.0001 #### [facility] [address] [place], [address] CBC-Complete Blood Cnt No Di ffon 04-21-2025 Erythrocyte distribution width (RBC) [Ratio] 12.8 % Normal 11.6-14.6 [facility] Comment on above: Order Comment: CLEAN CATCH Performed By: #### M 100.2200, L400.0001 #### [facility] [address] [place], [address] Hematocrit (Bld) [Volume fraction] 32.4 % Low 37-47 [facility] Comment on above: Order Comment: CLEAN CATCH Performed By: #### M 100.2200, L400.0001 #### [facility] [address] [place], [address] Hemoglobin (Bld) [Mass/Vol] 10.5 g/dL Low 12.0-15.0 [facility] Comment on above: Order Comment: CLEAN CATCH Performed By: #### M 100.2200, L400.0001 #### [facility] [address] [place], [address] MCH (RBC) [Entitic mass] 32.1 pg High 27.0-32.0 [facility] Comment on above: Order Comment: CLEAN CATCH Performed By: #### M 100.2200, L400.0001 #### [facility] [address] [place], [address] MCHC (RBC) [Mass/Vol] 32.4 g/dL Normal 32-36 [facility] Comment on above: Order Comment: CLEAN CATCH Performed By: #### M 100.2200, L400.0001 #### [facility] [address] [place], [address] MCV (RBC) [Entitic vol] 99.1 fL High 81-99 [facility] Comment on above: Order Comment: CLEAN CATCH Performed By: #### M 100.2200, L400.0001 #### [facility] [address] [place], [address] Platelet mean volume (Bld) [Entitic vol] 8.9 fL Normal 6.2-12.0 [facility] Comment on above: Order Comment: CLEAN CATCH Performed By: #### M 100.2200, L400.0001 #### [facility] [address] [place], [address] Platelets (Bld) [#/Vol] 251 10*3/uL Normal 150-450 [facility] Comment on above: Order Comment: CLEAN CATCH Performed By: #### M 100.2200, L400.0001 #### [facility] [address] [place], [address] RBC (Bld) [#/Vol] 3.27 10*6/uL Low 4.2-5.4 [facility] Comment on above: Order Comment: CLEAN CATCH Performed By: #### M 100.2200, L400.0001 #### [facility] [address] [place], [address] RDW SD 46.6 fl High 35.1-43.9 [facility] Comment on above: Order Comment: CLEAN CATCH Performed By: #### M 100.2200, L400.0001 #### [facility] [address] [place], [address] WBC (Bld) [#/Vol] 7.6 10*3/uL Normal 4.4-11.0 [facility] Comment on above: Order Comment: CLEAN CATCH Performed By: #### M 100.2200, L400.0001 #### [facility] [address] [place], [address] CBC-Complete Blood Cnt No Di ffon 04-02-2025 Erythrocyte distribution width (RBC) [Ratio] 13.2 % Normal 11.6-14.6 [facility] Comment on above: Order Comment: 114.2 Performed By: #### M 100.2200, L400.0001 #### [facility] [address] [place], [address] Hematocrit (Bld) [Volume fraction] 33.9 % Low 37-47 [facility] Comment on above: Order Comment: 114.2 Performed By: #### M 100.2200, L400.0001 #### [facility] [address] [place], [address] Hemoglobin (Bld) [Mass/Vol] 10.6 g/dL Low 12.0-15.0 [facility] Comment on above: Order Comment: 114.2 Performed By: #### M 100.2200, L400.0001 #### [facility] [address] [place], [address] MCH (RBC) [Entitic mass] 31.8 pg Normal 27.0-32.0 [facility] Comment on above: Order Comment: 114.2 Performed By: #### M 100.2200, L400.0001 #### [facility] [address] [place], [address] MCHC (RBC) [Mass/Vol] 31.3 g/dL Low 32-36 [facility] Comment on above: Order Comment: 114.2 Performed By: #### M 100.2200, L400.0001 #### [facility] [address] [place], [address] MCV (RBC) [Entitic vol] 101.8 fL High 81-99 [facility] Comment on above: Order Comment: 114.2 Performed By: #### M 100.2200, L400.0001 #### [facility] [address] [place], [address] Platelet mean volume (Bld) [Entitic vol] 8.7 fL Normal 6.2-12.0 [facility] Comment on above: Order Comment: 114.2 Performed By: #### M 100.2200, L400.0001 #### [facility] [address] [place], [address] Platelets (Bld) [#/Vol] 223 10*3/uL Normal 150-450 [facility] Comment on above: Order Comment: 114.2 Performed By: #### M 100.2200, L400.0001 #### [facility] [address] [place], [address] RBC (Bld) [#/Vol] 3.33 10*6/uL Low 4.2-5.4 [facility] Comment on above: Order Comment: 114.2 Performed By: #### M 100.2200, L400.0001 #### [facility] [address] [place], [address] RDW SD 49.4 fl High 35.1-43.9 [facility] Comment on above: Order Comment: 114.2 Performed By: #### M 100.2200, L400.0001 #### [facility] [address] [place], [address] WBC (Bld) [#/Vol] 7.4 10*3/uL Normal 4.4-11.0 [facility] Comment on above: Order Comment: 114.2 Performed By: #### M 100.2200, L400.0001 #### [facility] [address] [place], [address] Comprehensive Metabolic Prof ilon 04-02-2025 Albumin [Mass/Vol] 2.7 g/dL Low 3.4-4.8 [facility] Comment on above: Order Comment: 114.2 Performed By: #### M 100.2200, L400.0001 #### [facility] [address] [place], [address] Albumin/Globulin [Mass ratio] 1.1 {ratio} Normal 0.9-2.4 [facility] Comment on above: Order Comment: 114.2 Performed By: #### M 100.2200, L400.0001 #### [facility] [address] [place], [address] ALK PHOS 75 U/L Normal 35-104 [facility] Comment on above: Order Comment: 114.2 Performed By: #### M 100.2200, L400.0001 #### [facility] [address] [place], [address] ALT [Catalytic activity/Vol] 13 U/L Normal <=34 [facility] Comment on above: Order Comment: 114.2 Performed By: #### M 100.2200, L400.0001 #### [facility] [address] [place], [address] AST [Catalytic activity/Vol] 15 U/L Normal <=31 [facility] Comment on above: Order Comment: 114.2 Performed By: #### M 100.2200, L400.0001 #### [facility] [address] [place], [address] Bilirubin [Mass/Vol] 0.22 mg/dL Normal 0.00-1.30 [facility] Comment on above: Order Comment: 114.2 Performed By: #### M 100.2200, L400.0001 #### [facility] [address] [place], [address] BUN/CRE 27.4 RATIO High 10-20 [facility] Comment on above: Order Comment: 114.2 Performed By: #### M 100.2200, L400.0001 #### [facility] [address] [place], [address] Calcium [Mass/Vol] 8.4 mg/dL Normal 7.6-11.0 [facility] Comment on above: Order Comment: 114.2 Performed By: #### M 100.2200, L400.0001 #### [facility] [address] [place], [address] Chloride [Moles/Vol] 104 mmol/L Normal 98-108 [facility] Comment on above: Order Comment: 114.2 Performed By: #### M 100.2200, L400.0001 #### [facility] [address] [place], [address] CO2 [Moles/Vol] 25.4 mmol/L Normal 21.0-32.0 [facility] Comment on above: Order Comment: 114.2 Performed By: #### M 100.2200, L400.0001 #### [facility] [address] [place], [address] Creatinine [Mass/Vol] 1.21 mg/dL High 0.70-1.20 [facility] Comment on above: Order Comment: 114.2 Performed By: #### M 100.2200, L400.0001 #### [facility] [address] [place], [address] GAP 10 Normal 5-15 [facility] Comment on above: Order Comment: 114.2 Performed By: #### M 100.2200, L400.0001 #### [facility] [address] [place], [address] GFR/1.73 sq M.predicted among non-blacks MDRD (S/P/Bld) [Vol rate/Area] 49 mL/min/{1.73_m2} Low >60 [facility] Comment on above: Order Comment: 114.2 Result Comment: mL/m in/1.73m2 CKD-EPI Creatinine Equation (2020) Performed By: #### M 100.2200, L400.0001 #### [facility] [address] [place], [address] Globulin (S) [Mass/Vol] 2.4 g/dL Normal 2.2-4.2 [facility] Comment on above: Order Comment: 114.2 Performed By: #### M 100.2200, L400.0001 #### [facility] [address] [place], [address] Glucose [Mass/Vol] 168 mg/dL High 70-99 [facility] Comment on above: Order Comment: 114.2 Performed By: #### M 100.2200, L400.0001 #### [facility] [address] [place], [address] Potassium [Moles/Vol] 4.1 mmol/L Normal 3.3-5.1 [facility] Comment on above: Order Comment: 114.2 Performed By: #### M 100.2200, L400.0001 #### [facility] [address] [place], [address] Sodium [Moles/Vol] 140 mmol/L Normal 133-145 [facility] Comment on above: Order Comment: 114.2 Performed By: #### M 100.2200, L400.0001 #### [facility] [address] [place], [address] T PROT 5.1 g/dL Low 5.9-8.4 [facility] Comment on above: Order Comment: 114.2 Performed By: #### M 100.2200, L400.0001 #### [facility] [address] [place], [address] Urea nitrogen [Mass/Vol] 33 mg/dL High 4-19 [facility] Comment on above: Order Comment: 114.2 Performed By: #### M 100.2200, L400.0001 #### [facility] [address] [place], [address] Hemoglobin A1con 04-02-2025 HbA1c (Bld) [Mass fraction] 8.6 % High <=5.6 [facility] Comment on above: Order Comment: 114.2 Result Comment: Norm al < 5.7 % Prediabetic 5.7 - 6.4 % Diabetic >or= 6.5 % Please note range changes. Performed By: #### M 100.2200, L400.0001 #### [facility] [address] [place], [address] Lipid Profileon 04-02-2025 CHOL:HDL 4.55 Normal [facility] Comment on above: Order Comment: 114.2 Performed By: #### M 100.2200, L400.0001 #### [facility] [address] [place], [address] Cholesterol [Mass/Vol] 163 mg/dL Normal <=200 [facility] Comment on above: Order Comment: 114.2 Result Comment: Chol esterol level, Desirable <200 mg/dL Borderline high cholesterol 200-239 mg/dL High cholesterol >=240 mg/dL Recommendations of the NCEP Adult Treatment Panel for the following risk-cutoff thresholds for the [place] population. Performed By: #### M 100.2200, L400.0001 #### [facility] [address] [place], [address] Cholesterol in HDL [Mass/Vol] 36 mg/dL Low [facility] Comment on above: Order Comment: 114.2 Result Comment: [place] onal Cholesterol Education Program (NCEP) guidelines: <40 mg/dL: Low HDL-cholesterol (major risk factor for CHD) >= 60 mg/dL: High HDL-cholesterol (negative risk factor for CHD) HDL-cholesterol is affected by a number of factors, e.g. smoking, exercise, hormones, sex and age. Performed By: #### M 100.2200, L400.0001 #### [facility] [address] [place], [address] Cholesterol in LDL [Mass/Vol] 81 mg/dL Normal [facility] Comment on above: Order Comment: 114.2 Result Comment: Bord jghwvp=612-218 mg/dL Higher Iipd=215 mg/dL or greater Performed By: #### M 100.2200, L400.0001 #### [facility] [address] [place], [address] Cholesterol in VLDL [Mass/Vol] 46 mg/dL High 5-40 [facility] Comment on above: Order Comment: 114.2 Performed By: #### M 100.2200, L400.0001 #### [facility] [address] [place], [address] Triglyceride [Mass/Vol] 230 mg/dL High [facility] Comment on above: Order Comment: 114.2 Result Comment: The drugs N-Acetylcysteine and Metamizole may falsely depress this assay. Normal range: <150 mg/dL Borderline High: 150-199 mg/dL High: 200-499 mg/dL Very High: >500 mg/dL Performed By: #### M 100.2200, L400.0001 #### [facility] [address] [place], [address] Hemoglobin A1con 02-12-2025 HbA1c (Bld) [Mass fraction] 7.9 % High <=5.6 [facility] Comment on above: Order Comment: 114.2 Result Comment: Norm al < 5.7 % Prediabetic 5.7 - 6.4 % Diabetic >or= 6.5 % Please note range changes. Performed By: #### L 501.9985 #### [facility] [address] [place], [address] Hemoglobin A1c percentageOrd ered By: Lucy Quick on 02-12-2025 HbA1c (Bld) [Mass fraction] 7.9 % High <5.7 [facility] Comment on above: Normal < 5.7 % Predi abetic 5.7 - 6.4 % Diabetic >or= 6.5 % Please note range changes. Anion gap in Serum or Plasma Ordered By: Lucy Quick on 01-19-2025 Anion gap [Moles/Vol] 11 mmol/L 03-12 [facility] BUN/creatinine ratioOrdered By: Lucy Quick on 01-19-2025 Urea nitrogen/Creatinine [Mass ratio] 26.4 mg/mg High 08-17 [facility] Basic Metabolic Profile (BMP )on 01-19-2025 BUN/CRE 26.4 RATIO High 08-17 [facility] Comment on above: Order Comment: CLEAN CATCH Performed By: #### M 100.2200, L400.0001 #### [facility] [address] [place], [address] Calcium [Mass/Vol] 9.1 mg/dL Normal 7.6-11.0 [facility] Comment on above: Order Comment: CLEAN CATCH Performed By: #### M 100.2200, L400.0001 #### [facility] [address] [place], [address] Chloride [Moles/Vol] 99 mmol/L Normal 98-108 [facility] Comment on above: Order Comment: CLEAN CATCH Performed By: #### M 100.2200, L400.0001 #### [facility] [address] [place], [address] CO2 [Moles/Vol] 28.1 mmol/L Normal 21.0-32.0 [facility] Comment on above: Order Comment: CLEAN CATCH Performed By: #### M 100.2200, L400.0001 #### [facility] [address] [place], [address] Creatinine [Mass/Vol] 1.49 mg/dL High 0.70-1.20 [facility] Comment on above: Order Comment: CLEAN CATCH Performed By: #### M 100.2200, L400.0001 #### [facility] [address] [place], [address] GAP 11 Normal 5-15 [facility] Comment on above: Order Comment: CLEAN CATCH Performed By: #### M 100.2200, L400.0001 #### [facility] [address] [place], [address] GFR/1.73 sq M.predicted among non-blacks MDRD (S/P/Bld) [Vol rate/Area] 38 mL/min/{1.73_m2} Low >60 [facility] Comment on above: Order Comment: CLEAN CATCH Result Comment: mL/m in/1.73m2 CKD-EPI Creatinine Equation (2020) Performed By: #### M 100.2200, L400.0001 #### [facility] [address] [place], [address] Glucose [Mass/Vol] 110 mg/dL High 70-99 [facility] Comment on above: Order Comment: CLEAN CATCH Performed By: #### M 100.0, L400.0001 #### [facility] [address] [place], [address] Potassium [Moles/Vol] 4.2 mmol/L Normal 3.3-5.1 [facility] Comment on above: Order Comment: CLEAN CATCH Performed By: #### M 100.2200, L400.0001 #### [facility] [address] [place], [address] Sodium [Moles/Vol] 139 mmol/L Normal 133-145 [facility] Comment on above: Order Comment: CLEAN CATCH Performed By: #### M 100.2200, L400.0001 #### [facility] [address] [place], [address] Urea nitrogen [Mass/Vol] 39 mg/dL High 4-19 [facility] Comment on above: Order Comment: CLEAN CATCH Performed By: #### M 100.2200, L400.0001 #### [facility] [address] [place], [address] CBC-Complete Blood Cnt No Jessy calix 01-19-2025 Erythrocyte distribution width (RBC) [Ratio] 12.4 % Normal 11.6-14.6 [facility] Comment on above: Order Comment: CLEAN CATCH Performed By: #### M 100.2200, L400.0001 #### [facility] [address] [place], [address] Hematocrit (Bld) [Volume fraction] 35.9 % Low 37-47 [facility] Comment on above: Order Comment: CLEAN CATCH Performed By: #### M 100.2200, L400.0001 #### [facility] [address] [place], [address] Hemoglobin (Bld) [Mass/Vol] 11.4 g/dL Low 12.0-15.0 [facility] Comment on above: Order Comment: CLEAN CATCH Performed By: #### M 100.2200, L400.0001 #### [facility] [address] [place], [address] MCH (RBC) [Entitic mass] 31.8 pg Normal 27.0-32.0 [facility] Comment on above: Order Comment: CLEAN CATCH Performed By: #### M 100.2200, L400.0001 #### [facility] [address] [place], [address] MCHC (RBC) [Mass/Vol] 31.8 g/dL Low 32-36 [facility] Comment on above: Order Comment: CLEAN CATCH Performed By: #### M 100.2200, L400.0001 #### [facility] [address] [place], [address] MCV (RBC) [Entitic vol] 100.3 fL High 81-99 [facility] Comment on above: Order Comment: CLEAN CATCH Performed By: #### M 100.2200, L400.0001 #### [facility] [address] [place], [address] Platelet mean volume (Bld) [Entitic vol] 9.0 fL Normal 6.2-12.0 [facility] Comment on above: Order Comment: CLEAN CATCH Performed By: #### M 100.2200, L400.0001 #### [facility] [address] [place], [address] Platelets (Bld) [#/Vol] 232 10*3/uL Normal 150-450 [facility] Comment on above: Order Comment: CLEAN CATCH Performed By: #### M 100.2200, L400.0001 #### [facility] [address] [place], [address] RBC (Bld) [#/Vol] 3.58 10*6/uL Low 4.2-5.4 [facility] Comment on above: Order Comment: CLEAN CATCH Performed By: #### M 100.2200, L400.0001 #### [facility] [address] [place], [address] RDW SD 45.8 fl High 35.1-43.9 [facility] Comment on above: Order Comment: CLEAN CATCH Performed By: #### M 100.2200, L400.0001 #### [facility] [address] [place], [address] WBC (Bld) [#/Vol] 8.4 10*3/uL Normal 4.4-11.0 [facility] Comment on above: Order Comment: CLEAN CATCH Performed By: #### M 100.2200, L400.0001 #### [facility] [address] [place], [address] Carbon dioxide, total [Moles /volume] in Central venous bloodOrdered By: Lucy Quick on 01-19-2025 CO2 [Moles/Vol] 28.1 mmol/L 21.0-32.0 [facility] Chloride assayOrdered By: Jemal Campos on 01-19-2025 Chloride [Moles/Vol] 99 mmol/L 98-108 [facility] Erythrocyte distribution wid th (RBC) [Ratio]Ordered By: Lucy Quick on 01-19-2025 Erythrocyte distribution width (RBC) [Entitic vol] 45.8 fL High 35.1-43.9 [facility] Erythrocyte distribution wid th ratioOrdered By: Lucy Quick on 01-19-2025 Erythrocyte distribution width (RBC) [Ratio] 12.4 % 11.6-14.6 [facility] Erythrocyte distribution wid th standard deviationOrdered By: Lucy Quick on 01-19-2025 Erythrocyte distribution width (RBC) [Ratio] 45.8 fl High 35.1-43.9 [facility] GFR/1.73 sq M.predicted mahogany g non-blacks MDRD (S/P/Bld) [Vol rate/Area]Ordered By: Lucy Quick on 01-19-2025 Estimated GFR (MDRD) Non-Af Amer 38 Low >60 [facility] Comment on above: mL/min/1.73m2 CKD-EP I Creatinine Equation (2020) Glomerular filtration rate ( GFR) estimation/1.73 sq m using serum, plasma, or whole bOrdered By: Lucy Quick on 01-19-2025 GFR/1.73 sq M.predicted among non-blacks MDRD (S/P/Bld) [Vol rate/Area] 38 mL/min/{1.73_m2} Low >60 [facility] Comment on above: mL/min/1.73m2 CKD-EP I Creatinine Equation (2020) Hematocrit Auto (Bld) [Volum e fraction]Ordered By: Lucy Quick on 01-19-2025 Hematocrit (Bld) [Volume fraction] 35.9 % Low 37-47 [facility] Hemoglobin measurementOrdere d By: Lucy Quick on 01-19-2025 Hemoglobin (Bld) [Mass/Vol] 11.4 g/dL Low 12.0-15.0 [facility] MCV (mean corpuscular volume ) determinationOrdered By: Lucy Quick on 01-19-2025 MCV (RBC) [Entitic vol] 100.3 fL High 81-99 [facility] Mean corpuscular hemoglobin (MCH) determinationOrdered By: Lucy Quick on 01-19-2025 MCH (RBC) [Entitic mass] 31.8 pg 27.0-32.0 [facility] Mean corpuscular hemoglobin concentration (MCHC) determinationOrdered By: Lucy Quick on 01-19-2025 MCHC (RBC) [Mass/Vol] 31.8 g/dL Low 32-36 [facility] Mean platelet volume determi nationOrdered By: Lucy Quick on 01-19-2025 Platelet mean volume (Bld) [Entitic vol] 9.0 fL 6.2-12.0 [facility] Platelet countOrdered By: Jemal Campos on 01-19-2025 Platelets (Bld) [#/Vol] 232 10*3/uL 150-450 [facility] Potassium (Unsp spec) [Mass/ Vol]Ordered By: Lucy Quick on 01-19-2025 Potassium [Moles/Vol] 4.2 mmol/L 3.3-5.1 [facility] Potassium measurement (mass/ volume)Ordered By: Lucy Quick on 01-19-2025 Potassium (Unsp spec) [Mass/Vol] 4.2 mmol/L 3.3-5.1 [facility] RBC Auto (Bld) [#/Vol]Ordere d By: Lucy Quick on 01-19-2025 RBC (Bld) [#/Vol] 3.58 10*6/uL Low 4.2-5.4 [facility] Serum creatinine measurement (mass/volume)Ordered By: Lucy Quick on 01-19-2025 Creatinine [Mass/Vol] 1.49 mg/dL High 0.70-1.20 [facility] Serum glucose measurement (m ass/volume)Ordered By: Lucy Quick on 01-19-2025 Glucose [Mass/Vol] 110 mg/dL High 70-99 [facility] Serum or plasma calcium catracho urement (mass/volume)Ordered By: Lucy Quick on 01-19-2025 Calcium [Mass/Vol] 9.1 mg/dL 7.6-11.0 [facility] Serum or plasma urea nitroge n measurement (mass/volume)Ordered By: Lucy Quick on 01-19-2025 Urea nitrogen [Mass/Vol] 39 mg/dL High 4- [facility] Sodium levelOrdered By: Alfonso Quick on 01-19-2025 Sodium [Moles/Vol] 139 mmol/L 133-145 [facility] White blood cell (WBC) count Ordered By: Lucy Quick on 01-19-2025 WBC (Bld) [#/Vol] 8.4 10*3/uL 4.4-11.0 [facility] Basic Metabolic Profile (BMP )on 01-16-2025 BUN Normal 4- [facility] Comment on above: Order Comment: CLEAN CATCH Result Comment: UTO Performed By: #### M 100.2200, L400.0001 #### [facility] [address] [place], [address] BUN/CRE Normal 10-20 [facility] Comment on above: Order Comment: CLEAN CATCH Result Comment: UTO Performed By: #### M 100.2200, L400.0001 #### [facility] [address] [place], [address] Calcium Normal 7.6-11.0 [facility] Comment on above: Order Comment: CLEAN CATCH Result Comment: UTO Performed By: #### M 100.2200, L400.0001 #### [facility] [address] [place], [address] CL Normal 98-108 [facility] Comment on above: Order Comment: CLEAN CATCH Result Comment: UTO Performed By: #### M 100.2200, L400.0001 #### [facility] [address] [place], [address] CO2 Normal 21.0-32.0 [facility] Comment on above: Order Comment: CLEAN CATCH Result Comment: UTO Performed By: #### M 100.2200, L400.0001 #### [facility] [address] [place], [address] CREAT,SERUM Normal 0.70-1.20 [facility] Comment on above: Order Comment: CLEAN CATCH Result Comment: UTO Performed By: #### M 100.2200, L400.0001 #### [facility] [address] [place], [address] eGFR Normal >60 [facility] Comment on above: Order Comment: CLEAN CATCH Result Comment: UTO Performed By: #### M 100.2200, L400.0001 #### [facility] [address] [place], [address] GAP Normal 5-15 [facility] Comment on above: Order Comment: CLEAN CATCH Result Comment: UTO Performed By: #### M 100.2200, L400.0001 #### [facility] [address] [place], [address] GLU Normal 70-99 [facility] Comment on above: Order Comment: CLEAN CATCH Result Comment: UTO Performed By: #### M 100.2200, L400.0001 #### [facility] [address] [place], [address] Potassium Normal 3.3-5.1 [facility] Comment on above: Order Comment: CLEAN CATCH Result Comment: UTO Performed By: #### M 100.2200, L400.0001 #### [facility] [address] [place], [address] Basic Metabolic Profile (BMP) Normal 133-145 [facility] Comment on above: Order Comment: CLEAN CATCH Result Comment: UTO Performed By: #### M 100.2200, L400.0001 #### [facility] [address] [place], [address] CBC-Complete Blood Cnt No Di ffon 01-16-2025 HCT Normal 37-47 [facility] Comment on above: Order Comment: CLEAN CATCH Result Comment: UTO Performed By: #### M 100.2200, L400.0001 #### [facility] [address] [place], [address] HGB Normal 12.0-15.0 [facility] Comment on above: Order Comment: CLEAN CATCH Result Comment: UTO Performed By: #### M 100.2200, L400.0001 #### [facility] [address] [place], [address] MCH Normal 27.0-32.0 [facility] Comment on above: Order Comment: CLEAN CATCH Result Comment: UTO Performed By: #### M 100.2200, L400.0001 #### [facility] [address] [place], [address] MCHC Normal 32-36 [facility] Comment on above: Order Comment: CLEAN CATCH Result Comment: UTO Performed By: #### M 100.2200, L400.0001 #### [facility] [address] [place], [address] MCV Normal 81-99 [facility] Comment on above: Order Comment: CLEAN CATCH Result Comment: UTO Performed By: #### M 100.2200, L400.0001 #### [facility] [address] [place], [address] PLT Normal 150-450 [facility] Comment on above: Order Comment: CLEAN CATCH Result Comment: UTO Performed By: #### M 100.2200, L400.0001 #### [facility] [address] [place], [address] RBC Normal 4.2-5.4 [facility] Comment on above: Order Comment: CLEAN CATCH Result Comment: UTO Performed By: #### M 100.2200, L400.0001 #### [facility] [address] [place], [address] RDW CV Normal 11.6-14.6 [facility] Comment on above: Order Comment: CLEAN CATCH Result Comment: UTO Performed By: #### M 100.2200, L400.0001 #### [facility] [address] [place], [address] RDW SD Normal 35.1-43.9 [facility] Comment on above: Order Comment: CLEAN CATCH Result Comment: UTO Performed By: #### M 100.2200, L400.0001 #### [facility] [address] [place], [address] WBC Normal 4.4-11.0 [facility] Comment on above: Order Comment: CLEAN CATCH Result Comment: UTO Performed By: #### M 100.2200, L400.0001 #### [facility] [address] [place], [address] Basic Metabolic Profile (BMP )on 12-19-2024 BUN/CRE 26.7 RATIO High 10-20 [facility] Comment on above: Order Comment: CLEAN CATCH Performed By: #### M 100.2200, L400.0001 #### [facility] [address] [place], [address] CA,Total 9.4 mg/dL Normal 8.5-10.1 [facility] Comment on above: Order Comment: CLEAN CATCH Performed By: #### M 100.2200, L400.0001 #### [facility] [address] [place], [address] Chloride [Moles/Vol] 100 mmol/L Normal 98-107 [facility] Comment on above: Order Comment: CLEAN CATCH Performed By: #### M 100.2200, L400.0001 #### [facility] [address] [place], [address] CO2 [Moles/Vol] 33.0 mmol/L High 21.0-32.0 [facility] Comment on above: Order Comment: CLEAN CATCH Performed By: #### M 100.2200, L400.0001 #### [facility] [address] [place], [address] Creatinine [Mass/Vol] 1.46 mg/dL High 0.55-1.02 [facility] Comment on above: Order Comment: CLEAN CATCH Result Comment: The validity of the calculated GFR GFRAA in patients over 70 years has not been determined. Clinical correlation is essential. Performed By: #### M 100.2200, L400.0001 #### [facility] [address] [place], [address] EST GFR - AA 46 mL/min Low >60 [facility] Comment on above: Order Comment: CLEAN CATCH Result Comment: Afri can Gambian GFR Calc Performed By: #### M 100.2200, L400.0001 #### [facility] [address] [place], [address] GAP 5 Normal 5-15 [facility] Comment on above: Order Comment: CLEAN CATCH Performed By: #### M 100.2200, L400.0001 #### [facility] [address] [place], [address] GFR/1.73 sq M.predicted among non-blacks MDRD (S/P/Bld) [Vol rate/Area] 38 mL/min/{1.73_m2} Low >60 [facility] Comment on above: Order Comment: CLEAN CATCH Result Comment: Non- GFR Calc Performed By: #### M 100.2200, L400.0001 #### [facility] [address] [place], [address] Glucose [Mass/Vol] 178 mg/dL High 74-106 [facility] Comment on above: Order Comment: CLEAN CATCH Result Comment: Fast ing Glucose result greater than or equal to 126 mg/dL suggests DIABETES MELLITUS per A.D.A. criteria. Performed By: #### M 100.2200, L400.0001 #### [facility] [address] [place], [address] Potassium [Moles/Vol] 4.1 mmol/L Normal 3.5-5.1 [facility] Comment on above: Order Comment: CLEAN CATCH Performed By: #### M 100.2200, L400.0001 #### [facility] [address] [place], [address] Sodium [Moles/Vol] 138 mmol/L Normal 136-145 [facility] Comment on above: Order Comment: CLEAN CATCH Performed By: #### M 100.2200, L400.0001 #### [facility] [address] [place], [address] Urea nitrogen [Mass/Vol] 39 mg/dL High 7-18 [facility] Comment on above: Order Comment: CLEAN CATCH Performed By: #### M 100.2200, L400.0001 #### [facility] [address] [place], [address] Blood urea nitrogen (BUN)/cr eatinine ratioOrdered By: Lucy Quick on 12-19-2024 Urea nitrogen/Creatinine [Mass ratio] 26.7 mg/mg High 10-20 [facility] CBC-Complete Blood Cnt No Di ffon 12-19-2024 Erythrocyte distribution width (RBC) [Ratio] 12.4 % Normal 11.6-14.6 [facility] Comment on above: Order Comment: 114-2 Performed By: #### L 500.2500, L100.0500 #### [facility] [address] [place], [address] Hematocrit (Bld) [Volume fraction] 33.1 % Low 37-47 [facility] Comment on above: Order Comment: 114-2 Performed By: #### L 500.2500, L100.0500 #### [facility] [address] [place], [address] Hemoglobin (Bld) [Mass/Vol] 10.4 g/dL Low 12.0-15.0 [facility] Comment on above: Order Comment: 114-2 Performed By: #### L 500.2500, L100.0500 #### [facility] [address] [place], [address] MCH (RBC) [Entitic mass] 31.3 pg Normal 27.0-32.0 [facility] Comment on above: Order Comment: 114-2 Performed By: #### L 500.2500, L100.0500 #### [facility] [address] [place], [address] MCHC (RBC) [Mass/Vol] 31.4 g/dL Low 32-36 [facility] Comment on above: Order Comment: 114-2 Performed By: #### L 500.2500, L100.0500 #### [facility] [address] [place], [address] MCV (RBC) [Entitic vol] 99.7 fL High 81-99 [facility] Comment on above: Order Comment: 114-2 Performed By: #### L 500.2500, L100.0500 #### [facility] [address] [place], [address] Platelet mean volume (Bld) [Entitic vol] 8.7 fL Normal 6.2-12.0 [facility] Comment on above: Order Comment: 114-2 Performed By: #### L 500.2500, L100.0500 #### [facility] [address] [place], [address] Platelets (Bld) [#/Vol] 215 10*3/uL Normal 150-450 [facility] Comment on above: Order Comment: 114-2 Performed By: #### L 500.2500, L100.0500 #### [facility] [address] [place], [address] RBC (Bld) [#/Vol] 3.32 10*6/uL Low 4.2-5.4 [facility] Comment on above: Order Comment: 114-2 Performed By: #### L 500.2500, L100.0500 #### [facility] [address] [place], [address] RDW SD 44.6 fl High 35.1-43.9 [facility] Comment on above: Order Comment: 114-2 Performed By: #### L 500.2500, L100.0500 #### [facility] [address] [place], [address] WBC (Bld) [#/Vol] 9.0 10*3/uL Normal 4.4-11.0 [facility] Comment on above: Order Comment: 114-2 Performed By: #### L 500.2500, L100.0500 #### [facility] [address] [place], [address] Carbon dioxide measurementOr dered By: Lucy Quick on 12-19-2024 CO2 [Moles/Vol] 33.0 mmol/L High 21.0-32.0 [facility] Chloride measurementOrdered By: Lucy Quick on 12-19-2024 Chloride [Moles/Vol] 100 mmol/L 98-107 [facility] Erythrocyte distribution wid th ratioOrdered By: Lucy Quick on 12-19-2024 Erythrocyte distribution width (RBC) [Ratio] 12.4 % 11.6-14.6 [facility] Erythrocyte distribution wid th standard deviationOrdered By: Lucy Quick on 12-19-2024 Erythrocyte distribution width (RBC) [Entitic vol] 44.6 fL High 35.1-43.9 [facility] Erythrocyte distribution width (RBC) [Ratio] 44.6 fl High 35.1-43.9 [facility] Estimated glomerular filtrat ion rate (GFR) AmericanOrdered By: Lucy Quick on 12-19-2024 Estimated GFR (MDRD) Amer 46 mL/min Low >60 [facility] Comment on above: GFR Calc Glomerular filtration rate ( GFR) estimationOrdered By: Lucy Quick on 12-19-2024 Estimated GFR (MDRD) Non-Af Amer 38 mL/min Low >60 [facility] Comment on above: Non- GFR Calc GFR/1.73 sq M.predicted among non-blacks MDRD (S/P/Bld) [Vol rate/Area] 38 mL/min/{1.73_m2} Low >60 [facility] Comment on above: Non- GFR Calc Glucose measurementOrdered B y: Lucy Quick on 12-19-2024 Glucose [Mass/Vol] 178 mg/dL High 74-106 [facility] Comment on above: Fasting Glucose resu lt greater than or equal to 126 mg/dL suggests DIABETES MELLITUS per A.D.A. criteria. Hematocrit Auto (Bld) [Volum e fraction]Ordered By: Lucy Quick on 12-19-2024 Hematocrit (Bld) [Volume fraction] 33.1 % Low 37-47 [facility] Hemoglobin measurementOrdere d By: Lucy Quick on 12-19-2024 Hemoglobin (Bld) [Mass/Vol] 10.4 g/dL Low 12.0-15.0 [facility] MCV (mean corpuscular volume ) determinationOrdered By: Lucy Quick on 12-19-2024 MCV (RBC) [Entitic vol] 99.7 fL High 81-99 [facility] Mean corpuscular hemoglobin (MCH) determinationOrdered By: Lucy Quick on 12-19-2024 MCH (RBC) [Entitic mass] 31.3 pg 27.0-32.0 [facility] Mean corpuscular hemoglobin concentration (MCHC) determinationOrdered By: Lucy Quick on 12-19-2024 MCHC (RBC) [Mass/Vol] 31.4 g/dL Low 32-36 [facility] Mean platelet volume determi nationOrdered By: Lucy Quick on 12-19-2024 Platelet mean volume (Bld) [Entitic vol] 8.7 fL 6.2-12.0 [facility] Platelet countOrdered By: Jemal Campos on 12-19-2024 Platelets (Bld) [#/Vol] 215 10*3/uL 150-450 [facility] Potassium measurementOrdered By: Lucy Quick on 12-19-2024 Potassium [Moles/Vol] 4.1 mmol/L 3.5-5.1 [facility] RBC Auto (Bld) [#/Vol]Ordere d By: Lucy Quick on 12-19-2024 RBC (Bld) [#/Vol] 3.32 10*6/uL Low 4.2-5.4 [facility] Serum anion gap measurementO rdered By: Lucy Quick on 12-19-2024 Anion gap [Moles/Vol] 5 mmol/L 5-15 [facility] Serum or plasma calcium catracho urement (mass/volume)Ordered By: Lucy Quick on 12-19-2024 Calcium [Mass/Vol] 9.4 mg/dL 8.5-10.1 [facility] Serum or plasma creatinine m easurement (mass/volume)Ordered By: Lucy Quick on 12-19-2024 Creatinine [Mass/Vol] 1.46 mg/dL High 0.55-1.02 [facility] Comment on above: The validity of the calculated GFR & GFRAA in patients over 70 years has not been determined. Clinical correlation is essential. Serum or plasma urea nitroge n measurement (mass/volume)Ordered By: Lucy Quick on 12-19-2024 Urea nitrogen [Mass/Vol] 39 mg/dL High 05-15 [facility] Sodium levelOrdered By: Alfonso Quick on 12-19-2024 Sodium [Moles/Vol] 138 mmol/L 136-145 [facility] White blood cell (WBC) count Ordered By: Lucy Quick on 12-19-2024 WBC (Bld) [#/Vol] 9.0 10*3/uL 4.4-11.0 [facility] Basic Metabolic Profile (BMP )on 12-18-2024 BUN Normal 05-15 [facility] Comment on above: Order Comment: 114.2 Result Comment: BRENDON ENT REFUSED Performed By: #### M 100.2200, L400.0001 #### [facility] [address] [place], [address] BUN/CRE Normal 10-20 [facility] Comment on above: Order Comment: 114.2 Result Comment: BRENDON ENT REFUSED Performed By: #### M 100.2200, L400.0001 #### [facility] [address] [place], [address] CA,Total Normal 8.5-10.1 [facility] Comment on above: Order Comment: 114.2 Result Comment: BRENDON ENT REFUSED Performed By: #### M 100.2200, L400.0001 #### [facility] [address] [place], [address] CL Normal 98-107 [facility] Comment on above: Order Comment: 114.2 Result Comment: BRENDON ENT REFUSED Performed By: #### M 100.2200, L400.0001 #### [facility] [address] [place], [address] CO2 Normal 21.0-32.0 [facility] Comment on above: Order Comment: 114.2 Result Comment: BRENDON ENT REFUSED Performed By: #### M 100.2200, L400.0001 #### [facility] [address] [place], [address] CREAT,SERUM Normal 0.55-1.02 [facility] Comment on above: Order Comment: 114.2 Result Comment: BRENDON ENT REFUSED Performed By: #### M 100.2200, L400.0001 #### [facility] [address] [place], [address] EST GFR Normal >60 [facility] Comment on above: Order Comment: 114.2 Result Comment: BRENDON ENT REFUSED Performed By: #### M 100.2200, L400.0001 #### [facility] [address] [place], [address] EST GFR - AA Normal >60 [facility] Comment on above: Order Comment: 114.2 Result Comment: BRENDON ENT REFUSED Performed By: #### M 100.2200, L400.0001 #### [facility] [address] [place], [address] GAP Normal 5-15 [facility] Comment on above: Order Comment: 114.2 Result Comment: BRENDON ENT REFUSED Performed By: #### M 100.2200, L400.0001 #### [facility] [address] [place], [address] GLU Normal 74-106 [facility] Comment on above: Order Comment: 114.2 Result Comment: BRENDON ENT REFUSED Performed By: #### M 100.2200, L400.0001 #### [facility] [address] [place], [address] Potassium Normal 3.5-5.1 [facility] Comment on above: Order Comment: 114.2 Result Comment: BRENDON ENT REFUSED Performed By: #### M 100.2200, L400.0001 #### [facility] [address] [place], [address] Basic Metabolic Profile (BMP) Normal 136-145 [facility] Comment on above: Order Comment: 114.2 Result Comment: BRENDON ENT REFUSED Performed By: #### M 100.2200, L400.0001 #### [facility] [address] [place], [address] CBC-Complete Blood Cnt No Di ffon 12-18-2024 HCT Normal 37-47 [facility] Comment on above: Order Comment: 114.2 Result Comment: BRENDON ENT REFUSED Performed By: #### M 100.2200, L400.0001 #### [facility] [address] [place], [address] HGB Normal 12.0-15.0 [facility] Comment on above: Order Comment: 114.2 Result Comment: BRENDON ENT REFUSED Performed By: #### M 100.2200, L400.0001 #### [facility] [address] [place], [address] MCH Normal 27.0-32.0 [facility] Comment on above: Order Comment: 114.2 Result Comment: BRENDON ENT REFUSED Performed By: #### M 100.2200, L400.0001 #### [facility] [address] [place], [address] MCHC Normal 32-36 [facility] Comment on above: Order Comment: 114.2 Result Comment: BRENDON ENT REFUSED Performed By: #### M 100.2200, L400.0001 #### [facility] [address] [place], [address] MCV Normal 81-99 [facility] Comment on above: Order Comment: 114.2 Result Comment: BRENDON ENT REFUSED Performed By: #### M 100.2200, L400.0001 #### [facility] [address] [place], [address] PLT Normal 150-450 [facility] Comment on above: Order Comment: 114.2 Result Comment: BRENDON ENT REFUSED Performed By: #### M 100.2200, L400.0001 #### [facility] [address] [place], [address] RBC Normal 4.2-5.4 [facility] Comment on above: Order Comment: 114.2 Result Comment: BRENDON ENT REFUSED Performed By: #### M 100.2200, L400.0001 #### [facility] [address] [place], [address] RDW CV Normal 11.6-14.6 [facility] Comment on above: Order Comment: 114.2 Result Comment: BRENDON ENT REFUSED Performed By: #### M 100.2200, L400.0001 #### [facility] [address] [place], [address] RDW SD Normal 35.1-43.9 [facility] Comment on above: Order Comment: 114.2 Result Comment: BRENDON ENT REFUSED Performed By: #### M 100.2200, L400.0001 #### [facility] [address] [place], [place], [id number] WBC Normal 4.4-11.0 [facility] Comment on above: Order Comment: 114.2 Result Comment: BRENDON ENT REFUSED Performed By: #### M 100.2200, L400.0001 #### [facility] [address] [place], [place], [address] Urine Cultureon 11-12-2024 URC #4 If Gram Positive Harshal susceptibility studies are desired, contact the Microbiology Laboratory within 48 hours [phone]. Urine Culture Copy of report sent to Infection Control Printer [id number] 11/10/24 9035 LUCA. Urine Culture RESULTS CALLED TO QUINCY Kramer 11/10/24 1355 Merissa Locke. REPORT READ BACK BY . Urine Culture ESBL Escherichia coli [place] Count 25,000-50,000 MARKER ESBL producing OrganismA MARKER ESBL producing OrganismA [place] Count 25,000-50,000 Proteus mirabilis [place] Count 25,000-50,000 Corynebact. pseudodiphtheritic Staphylococcus warneri ESBL [...] S Vancomycin Islt ASHU 1 S Normal [facility] Comment on above: Performed By: #### L 500.4100, L501.9985, L500.4050, L100.0500 #### [facility] [address] [place], [address] Urinalysis, Completeon 11-05 EPI,SQUAMOUS 0-5 SEEN Normal 5-10 [facility] Comment on above: Order Comment: 114.2 Performed By: #### L 500.4100, L501.9985, L500.4050, L100.0500 #### [facility] [address] [place], [address] BACTERIA 0 SEEN Normal None Seen [facility] Comment on above: Order Comment: 114.2 Performed By: #### L 500.4100, L501.9985, L500.4050, L100.0500 #### [facility] [address] [place], [address] Mucus Ql (Urine sed) 0 SEEN Normal [facility] Comment on above: Order Comment: 114.2 Performed By: #### L 500.4100, L501.9985, L500.4050, L100.0500 #### [facility] [address] [place], [address] RBC 0 SEEN Normal 0-5 [facility] Comment on above: Order Comment: 114.2 Performed By: #### L 500.4100, L501.9985, L500.4050, L100.0500 #### [facility] [address] [place], [place], [id number] WBC 0 SEEN Normal 0-5 [facility] Comment on above: Order Comment: 114.2 Performed By: #### L 500.4100, L501.9985, L500.4050, L100.0500 #### [facility] [address] [place], [place], [id number] Bilirubin Test strip Ql (U)O rdered By: Lucy Quick on 11-04-2024 Bilirubin Ql (U) Negative Negative [facility] Epithelial cells.squamous LM Ql (Urine sed)Ordered By: Lucy Quick on 11-04-2024 Epithelial cells.squamous LM.HPF (Urine sed) [#/Area] 0 /[HPF] 5-10 [facility] Glucose Ql (U)Ordered By: Jemal Campos on 11-04-2024 Urine Glucose (UA) Normal mg/dl Normal [facility] Ketones Test strip Ql (U)Ord ered By: Lucy Quick on 11-04-2024 Ketones Ql (U) Negative Negative [facility] Microscopic analysis of urin e for red blood cells (RBC)Ordered By: Lucy Quick on 11-04-2024 Urine RBC 0 SEEN /hpf 0-5 [facility] Mucus LM Ql (Urine sed)Order ed By: Lucy Quick on 11-04-2024 Mucus Ql (Urine sed) 0 SEEN /hpf [facility] Nitrite Test strip Ql (U)Ord ered By: Lucy Quick on 11-04-2024 Nitrite Ql (U) Negative Negative [facility] Protein Test strip Ql (U)Ord ered By: Lucy Quick on 11-04-2024 Protein Ql (U) Negative Negative [facility] Urine blood detectionOrdered By: Lucy Quick on 11-04-2024 Urine Occult Blood Negative Negative [facility] Urine clarityOrdered By: Josee Quick on 11-04-2024 Clarity (U) Clear Clear [facility] Urine color determinationOrd ered By: Lucy Quick on 11-04-2024 Color (U) Yellow Yellow [facility] Urine cultureOrdered By: Josee Quick on 11-04-2024 Bacteria identified Cx Nom (U) ESBL Escherichia coli Abnormal [facility] Bacteria identified Cx Nom (U) Proteus mirabilis Abnormal [facility] Bacteria identified Cx Nom (U) Staphylococcus warneri Abnormal [facility] Bacteria identified Cx Nom (U) Corynebact. pseudodiphtheritic Abnormal [facility] Urine leukocyte esterase det ection by dipstickOrdered By: Lucy Quick on 11-04-2024 Leukocyte esterase Test strip Ql (U) Negative Negative [facility] Urine pHOrdered By: Lucy mcguire on 11-04-2024 pH (U) 7.0 [pH] 5.0 - 8.0 [facility] Urine sediment bacteria coun t by microscopy (number/high power field)Ordered By: Lucy Quick on 11-04-2024 Bacteria LM.HPF (Urine sed) [#/Area] 0 /[HPF] None Seen [facility] Urine specific gravity measu rementOrdered By: Lucy Quick on 11-04-2024 Specific gravity (U) [Rel density] 1.010 1.002-1.030 [facility] Urobilinogen Ql (U)Ordered B y: Lucy Quick on 11-04-2024 Urine Urobilinogen Normal mg/dl Normal [facility] White blood cell countOrdere d By: Lucy Quick on 11-04-2024 Urine WBC 0 SEEN /hpf 0-5 [facility] Basic Metabolic Profile (BMP )on 10-09-2024 BUN/CRE 28.4 RATIO High 10-20 [facility] Comment on above: Order Comment: 114.2 Performed By: #### L 500.2500, L100.0500 #### [facility] [address] [place], [address] CA,Total 9.5 mg/dL Normal 8.5-10.1 [facility] Comment on above: Order Comment: 114.2 Performed By: #### L 500.2500, L100.0500 #### [facility] [address] [place], [address] Chloride [Moles/Vol] 101 mmol/L Normal 98-107 [facility] Comment on above: Order Comment: 114.2 Performed By: #### L 500.2500, L100.0500 #### [facility] [address] [place], [address] CO2 [Moles/Vol] 29.0 mmol/L Normal 21.0-32.0 [facility] Comment on above: Order Comment: 114.2 Performed By: #### L 500.2500, L100.0500 #### [facility] [address] [place], [address] Creatinine [Mass/Vol] 1.48 mg/dL High 0.55-1.02 [facility] Comment on above: Order Comment: 114.2 Result Comment: The validity of the calculated GFR GFRAA in patients over 70 years has not been determined. Clinical correlation is essential. Performed By: #### L 500.2500, L100.0500 #### [facility] [address] [place], [address] EST GFR - AA 45 mL/min Low >60 [facility] Comment on above: Order Comment: 114.2 Result Comment: Afri can Gambian GFR Calc Performed By: #### L 500.2500, L100.0500 #### [facility] [address] [place], [address] GAP 6 Normal 5-15 [facility] Comment on above: Order Comment: 114.2 Performed By: #### L 500.2500, L100.0500 #### [facility] [address] [place], [address] GFR/1.73 sq M.predicted among non-blacks MDRD (S/P/Bld) [Vol rate/Area] 37 mL/min/{1.73_m2} Low >60 [facility] Comment on above: Order Comment: 114.2 Result Comment: Non- GFR Calc Performed By: #### L 500.2500, L100.0500 #### [facility] [address] [place], [address] Glucose [Mass/Vol] 166 mg/dL High 74-106 [facility] Comment on above: Order Comment: 114.2 Result Comment: Fast ing Glucose result greater than or equal to 126 mg/dL suggests DIABETES MELLITUS per A.D.A. criteria. Performed By: #### L 500.2500, L100.0500 #### [facility] [address] [place], [address] Potassium [Moles/Vol] 4.8 mmol/L Normal 3.5-5.1 [facility] Comment on above: Order Comment: 114.2 Result Comment: Mode rate Hemolysis, Result may be falsely increased. Performed By: #### L 500.2500, L100.0500 #### [facility] [address] [place], [address] Sodium [Moles/Vol] 136 mmol/L Normal 136-145 [facility] Comment on above: Order Comment: 114.2 Performed By: #### L 500.2500, L100.0500 #### [facility] [address] [place], [address] Urea nitrogen [Mass/Vol] 42 mg/dL High 7-18 [facility] Comment on above: Order Comment: 114.2 Performed By: #### L 500.2500, L100.0500 #### [facility] [address] [place], [address] Blood urea nitrogen (BUN)/cr eatinine ratioOrdered By: Lucy Quick on 10-09-2024 Urea nitrogen/Creatinine [Mass ratio] 28.4 mg/mg High 10-20 [facility] CBC-Complete Blood Cnt No Di ffon 10-09-2024 Erythrocyte distribution width (RBC) [Ratio] 13.2 % Normal 11.6-14.6 [facility] Comment on above: Order Comment: 114.2 Performed By: #### L 500.2500, L100.0500 #### [facility] [address] [place], [address] Hematocrit (Bld) [Volume fraction] 36.1 % Low 37-47 [facility] Comment on above: Order Comment: 114.2 Performed By: #### L 500.2500, L100.0500 #### [facility] [address] [place], [address] Hemoglobin (Bld) [Mass/Vol] 11.0 g/dL Low 12.0-15.0 [facility] Comment on above: Order Comment: 114.2 Performed By: #### L 500.2500, L100.0500 #### [facility] [address] [place], [address] MCH (RBC) [Entitic mass] 31.1 pg Normal 27.0-32.0 [facility] Comment on above: Order Comment: 114.2 Performed By: #### L 500.2500, L100.0500 #### [facility] [address] [place], [address] MCHC (RBC) [Mass/Vol] 30.5 g/dL Low 32-36 [facility] Comment on above: Order Comment: 114.2 Performed By: #### L 500.2500, L100.0500 #### [facility] [address] [place], [address] MCV (RBC) [Entitic vol] 102.0 fL High 81-99 [facility] Comment on above: Order Comment: 114.2 Performed By: #### L 500.2500, L100.0500 #### [facility] [address] [place], [address] Platelet mean volume (Bld) [Entitic vol] 9.1 fL Normal 6.2-12.0 [facility] Comment on above: Order Comment: 114.2 Performed By: #### L 500.2500, L100.0500 #### [facility] [address] [place], [address] Platelets (Bld) [#/Vol] 211 10*3/uL Normal 150-450 [facility] Comment on above: Order Comment: 114.2 Performed By: #### L 500.2500, L100.0500 #### [facility] [address] [place], [address] RBC (Bld) [#/Vol] 3.54 10*6/uL Low 4.2-5.4 [facility] Comment on above: Order Comment: 114.2 Performed By: #### L 500.2500, L100.0500 #### [facility] [address] [place], [address] RDW SD 48.8 fl High 35.1-43.9 [facility] Comment on above: Order Comment: 114.2 Performed By: #### L 500.2500, L100.0500 #### [facility] [address] [place], [address] WBC (Bld) [#/Vol] 7.4 10*3/uL Normal 4.4-11.0 [facility] Comment on above: Order Comment: 114.2 Performed By: #### L 500.2500, L100.0500 #### [facility] [address] [place], [address] Carbon dioxide measurementOr dered By: Lucy Quick on 10-09-2024 CO2 [Moles/Vol] 29.0 mmol/L 21.0-32.0 [facility] Chloride measurementOrdered By: Lucy Quick on 10-09-2024 Chloride [Moles/Vol] 101 mmol/L 98-107 [facility] Erythrocyte distribution wid th ratioOrdered By: Lucy Quick on 10-09-2024 Erythrocyte distribution width (RBC) [Ratio] 13.2 % 11.6-14.6 [facility] Erythrocyte distribution wid th standard deviationOrdered By: Lucy Quick on 10-09-2024 Erythrocyte distribution width (RBC) [Entitic vol] 48.8 fL High 35.1-43.9 [facility] Estimated glomerular filtrat ion rate (GFR) AmericanOrdered By: Lucy Quick on 10-09-2024 Estimated GFR (MDRD) Amer 45 mL/min Low >60 [facility] Comment on above: GFR Calc Glomerular filtration rate ( GFR) estimationOrdered By: Lucy Quick on 10-09-2024 Estimated GFR (MDRD) Non-Af Amer 37 mL/min Low >60 [facility] Comment on above: Non- GFR Calc Glucose measurementOrdered B y: Lucy Quick on 10-09-2024 Glucose [Mass/Vol] 166 mg/dL High 74-106 [facility] Comment on above: Fasting Glucose resu lt greater than or equal to 126 mg/dL suggests DIABETES MELLITUS per A.D.A. criteria. Hematocrit Auto (Bld) [Volum e fraction]Ordered By: Lucy Quick on 10-09-2024 Hematocrit (Bld) [Volume fraction] 36.1 % Low 37-47 [facility] Hemoglobin measurementOrdere d By: Lucy Quick on 10-09-2024 Hemoglobin (Bld) [Mass/Vol] 11.0 g/dL Low 12.0-15.0 [facility] MCV (mean corpuscular volume ) determinationOrdered By: Lucy Quick on 10-09-2024 MCV (RBC) [Entitic vol] 102.0 fL High 81-99 [facility] Mean corpuscular hemoglobin (MCH) determinationOrdered By: Lucy Quick on 10-09-2024 MCH (RBC) [Entitic mass] 31.1 pg 27.0-32.0 [facility] Mean corpuscular hemoglobin concentration (MCHC) determinationOrdered By: Lucy Quick on 10-09-2024 MCHC (RBC) [Mass/Vol] 30.5 g/dL Low 32-36 [facility] Mean platelet volume determi nationOrdered By: Lucy Quick on 10-09-2024 Platelet mean volume (Bld) [Entitic vol] 9.1 fL 6.2-12.0 [facility] Platelet countOrdered By: Jemal Campos on 10-09-2024 Platelets (Bld) [#/Vol] 211 10*3/uL 150-450 [facility] Potassium measurementOrdered By: Lucy Quick on 10-09-2024 Potassium [Moles/Vol] 4.8 mmol/L 3.5-5.1 [facility] Comment on above: Moderate Hemolysis, Result may be falsely increased. RBC Auto (Bld) [#/Vol]Ordere d By: Lucy Quick on 10-09-2024 RBC (Bld) [#/Vol] 3.54 10*6/uL Low 4.2-5.4 [facility] Serum anion gap measurementO rdered By: Lucy Quick on 10-09-2024 Anion gap [Moles/Vol] 6 mmol/L 5-15 [facility] Serum or plasma calcium catracho urement (mass/volume)Ordered By: Lucy Quick on 10-09-2024 Calcium [Mass/Vol] 9.5 mg/dL 8.5-10.1 [facility] Serum or plasma creatinine m easurement (mass/volume)Ordered By: Lucy Quick on 10-09-2024 Creatinine [Mass/Vol] 1.48 mg/dL High 0.55-1.02 [facility] Comment on above: The validity of the calculated GFR & GFRAA in patients over 70 years has not been determined. Clinical correlation is essential. Serum or plasma urea nitroge n measurement (mass/volume)Ordered By: Lucy Quick on 10-09-2024 Urea nitrogen [Mass/Vol] 42 mg/dL High 7-18 [facility] Sodium levelOrdered By: Alfonso Quick on 10-09-2024 Sodium [Moles/Vol] 136 mmol/L 136-145 [facility] White blood cell (WBC) count Ordered By: Lucy Quick on 10-09-2024 WBC (Bld) [#/Vol] 7.4 10*3/uL 4.4-11.0 [facility] Albumin to globulin ratioOrd ered By: Lucy Quick on 10-02-2024 Albumin/Globulin [Mass ratio] 0.8 {ratio} Low 0.9-2.4 [facility] Comment on above: Order Comment: 114.2 Performed By: #### L 500.4100, L501.9985, L500.4050, L100.0500 #### [facility] [address] [place], [address] Automated blood erythrocyte countOrdered By: Lucy Quick on 10-02-2024 RBC (Bld) [#/Vol] 3.28 10*6/uL Low 4.2-5.4 [facility] Comment on above: Order Comment: 114.2 Performed By: #### L 500.4100, L501.9985, L500.4050, L100.0500 #### [facility] [address] [place], [address] Automated blood hematocrit ( percentage)Ordered By: Lucy Quick on 10-02-2024 Hematocrit (Bld) [Volume fraction] 33.0 % Low 37-47 [facility] Comment on above: Order Comment: 114.2 Performed By: #### L 500.4100, L501.9985, L500.4050, L100.0500 #### [facility] [address] [place], [address] Bilirubin, totalOrdered By: Lucy Quick on 10-02-2024 Bilirubin [Mass/Vol] 0.30 mg/dL Normal 0.20-1.00 [facility] Comment on above: For patients on eltr ombopag therapy, use of Dimension Gibson TBIL is not recommended. Order Comment: 114.2 Result Comment: For patients on eltrombopag therapy, use of Dimension Gibson TBIL is not recommended. Performed By: #### L 500.4100, L501.9985, L500.4050, L100.0500 #### [facility] [address] [place], [address] Blood urea nitrogen (BUN)/cr eatinine ratioOrdered By: Lucy Quick on 10-02-2024 Urea nitrogen/Creatinine [Mass ratio] 29.6 mg/mg High 10- [facility] CBC-Complete Blood Cnt No Di ffon 10-02-2024 RDW SD 46.5 fl High 35.1-43.9 [facility] Comment on above: Order Comment: 114.2 Performed By: #### L 500.4100, L501.9985, L500.4050, L100.0500 #### [facility] [address] [place], [address] Carbon dioxide measurementOr dered By: Lucy Quick on 10-02-2024 CO2 [Moles/Vol] 29.0 mmol/L Normal 21.0-32.0 [facility] Comment on above: Order Comment: 114.2 Performed By: #### L 500.4100, L501.9985, L500.4050, L100.0500 #### [facility] [address] [place], [address] Chloride measurementOrdered By: Lucy Quick on 10-02-2024 Chloride [Moles/Vol] 102 mmol/L Normal 98-107 [facility] Comment on above: Order Comment: 114.2 Performed By: #### L 500.4100, L501.9985, L500.4050, L100.0500 #### [facility] [address] [place], [address] Comprehensive Metabolic Prof ilon 10-02-2024 ALK P 56 U/L Normal 45-117 [facility] Comment on above: Order Comment: 114.2 Performed By: #### L 500.4100, L501.9985, L500.4050, L100.0500 #### [facility] [address] [place], [address] BUN/CRE 29.6 RATIO High 08-17 [facility] Comment on above: Order Comment: 114.2 Performed By: #### L 500.4100, L501.9985, L500.4050, L100.0500 #### [facility] [address] [place], [address] CA,Total 8.4 mg/dL Low 8.5-10.1 [facility] Comment on above: Order Comment: 114.2 Performed By: #### L 500.4100, L501.9985, L500.4050, L100.0500 #### [facility] [address] [place], [address] EST GFR - AA 39 mL/min Low >60 [facility] Comment on above: Order Comment: 114.2 Result Comment: Afri can Gambian GFR Calc Performed By: #### L 500.4100, L501.9985, L500.4050, L100.0500 #### [facility] [address] [place], [address] GAP 7 Normal 5-15 [facility] Comment on above: Order Comment: 114.2 Performed By: #### L 500.4100, L501.9985, L500.4050, L100.0500 #### [facility] [address] [place], [address] GFR/1.73 sq M.predicted among non-blacks MDRD (S/P/Bld) [Vol rate/Area] 32 mL/min/{1.73_m2} Low >60 [facility] Comment on above: Order Comment: 114.2 Result Comment: Non- GFR Calc Performed By: #### L 500.4100, L501.9985, L500.4050, L100.0500 #### [facility] [address] [place], [address] T PROT 5.5 g/dL Low 6.4-8.2 [facility] Comment on above: Order Comment: 114.2 Performed By: #### L 500.4100, L501.9985, L500.4050, L100.0500 #### [facility] [address] [place], [address] Comprehensive Metabolic Prof ilOrdered By: Lucy Quick on 10-02-2024 AST [Catalytic activity/Vol] 32 U/L Normal 15-37 [facility] Comment on above: Slight Hemolysis, Re sult may be falsely increased. Order Comment: 114.2 Result Comment: Slig ht Hemolysis, Result may be falsely increased. Performed By: #### L 500.4100, L501.9985, L500.4050, L100.0500 #### [facility] [address] [place], [address] Erythrocyte distribution wid th ratioOrdered By: Lucy Quick on 10-02-2024 Erythrocyte distribution width (RBC) [Ratio] 12.8 % Normal 11.6-14.6 [facility] Comment on above: Order Comment: 114.2 Performed By: #### L 500.4100, L501.9985, L500.4050, L100.0500 #### [facility] [address] [place], [address] Erythrocyte distribution wid th standard deviationOrdered By: Lucy Quick on 10-02-2024 Erythrocyte distribution width (RBC) [Entitic vol] 46.5 fL High 35.1-43.9 [facility] Estimated glomerular filtrat ion rate (GFR) AmericanOrdered By: Lucy Quick on 10-02-2024 Estimated GFR (MDRD) Amer 39 mL/min Low >60 [facility] Comment on above: GFR Calc Glomerular filtration rate ( GFR) estimationOrdered By: Lucy Quick on 10-02-2024 Estimated GFR (MDRD) Non-Af Amer 32 mL/min Low >60 [facility] Comment on above: Non- GFR Calc Glucose measurementOrdered B y: Lucy Quick on 10-02-2024 Glucose [Mass/Vol] 247 mg/dL High 74-106 [facility] Comment on above: Glucose result great er than or equal to 200 mg/dLsuggests DIABETES MELLITUS per A.D.A. criteria. Order Comment: 114.2 Result Comment: Gluc ose result greater than or equal to 200 mg/dL suggests DIABETES MELLITUS per A.D.A. criteria. Performed By: #### L 500.4100, L501.9985, L500.4050, L100.0500 #### [facility] [address] [place], [address] Hemoglobin A1c percentageOrd ered By: Lucy Quick on 10-02-2024 HbA1c (Bld) [Mass fraction] 7.4 % High 3.8-5.6 [facility] Comment on above: Normal < 5.7 % Predi abetic 5.7 - 6.4 % Diabetic >or= 6.5 % Please note range changes. Order Comment: 114.2 Result Comment: Norm al < 5.7 % Prediabetic 5.7 - 6.4 % Diabetic >or= 6.5 % Please note range changes. Performed By: #### L 500.4100, L501.9985, L500.4050, L100.0500 #### [facility] [address] [place], [address] Hemoglobin measurementOrdere d By: Lucy Quick on 10-02-2024 Hemoglobin (Bld) [Mass/Vol] 10.4 g/dL Low 12.0-15.0 [facility] Comment on above: Order Comment: 114.2 Performed By: #### L 500.4100, L501.9985, L500.4050, L100.0500 #### [facility] [address] [place], [address] High density lipoprotein (HD L) measurementOrdered By: Lucy Quick on 10-02-2024 Cholesterol in HDL [Mass/Vol] 39 mg/dL Low [facility] Comment on above: The drugs [...] High HDL Cholesterol Performed By: #### L 500.4100, L501.9985, L500.4050, L100.0500 #### [facility] [address] [place], [address] Lipid Profileon 10-02-2024 Cholesterol in VLDL [Mass/Vol] 75 mg/dL High 5-40 [facility] Comment on above: Order Comment: 114.2 Performed By: #### L 500.4100, L501.9985, L500.4050, L100.0500 #### [facility] [address] [place], [place], [id number] Low density lipoprotein (LDL ) cholesterol measurementOrdered By: Lucy Quick on 10-02-2024 Cholesterol in LDL [Mass/Vol] 77 mg/dL Normal 0-130 [facility] Comment on above: Order Comment: 114.2 Performed By: #### L 500.4100, L501.9985, L500.4050, L100.0500 #### [facility] [address] [place], [place], [id number] MCV (mean corpuscular volume ) determinationOrdered By: Lucy Quick on 10-02-2024 MCV (RBC) [Entitic vol] 100.6 fL High 81-99 [facility] Comment on above: Order Comment: 114.2 Performed By: #### L 500.4100, L501.9985, L500.4050, L100.0500 #### [facility] [address] [place], [address] Mean corpuscular hemoglobin (MCH) determinationOrdered By: Lucy Quick on 10-02-2024 MCH (RBC) [Entitic mass] 31.7 pg Normal 27.0-32.0 [facility] Comment on above: Order Comment: 114.2 Performed By: #### L 500.4100, L501.9985, L500.4050, L100.0500 #### [facility] [address] [place], [address] Mean corpuscular hemoglobin concentration (MCHC) determinationOrdered By: Lucy Quick on 10-02-2024 MCHC (RBC) [Mass/Vol] 31.5 g/dL Low 32-36 [facility] Comment on above: Order Comment: 114.2 Performed By: #### L 500.4100, L501.9985, L500.4050, L100.0500 #### [facility] [address] [place], [place], [id number] Mean platelet volume determi nationOrdered By: Lucy Quick on 10-02-2024 Platelet mean volume (Bld) [Entitic vol] 9.1 fL Normal 6.2-12.0 [facility] Comment on above: Order Comment: 114.2 Performed By: #### L 500.4100, L501.9985, L500.4050, L100.0500 #### [facility] [address] [place], [place], [address] Platelet countOrdered By: Jemal Campos on 10-02-2024 Platelets (Bld) [#/Vol] 286 10*3/uL Normal 150-450 [facility] Comment on above: Order Comment: 114.2 Performed By: #### L 500.4100, L501.9985, L500.4050, L100.0500 #### [facility] [address] [place], [address] Potassium measurementOrdered By: Lucy Quick on 10-02-2024 Potassium [Moles/Vol] 4.1 mmol/L Normal 3.5-5.1 [facility] Comment on above: Slight Hemolysis, Re sult may be falsely increased. Order Comment: 114.2 Result Comment: Slig ht Hemolysis, Result may be falsely increased. Performed By: #### L 500.4100, L501.9985, L500.4050, L100.0500 #### [facility] [address] [place], [address] Serum anion gap measurementO rdered By: Lucy Quick on 10-02-2024 Anion gap [Moles/Vol] 7 mmol/L 5-15 [facility] Serum globulin measurementOr dered By: Lucy Quick on 10-02-2024 Globulin (S) [Mass/Vol] 3.0 g/dL Normal 2.2-4.2 [facility] Comment on above: Order Comment: 114.2 Performed By: #### L 500.4100, L501.9985, L500.4050, L100.0500 #### [facility] [address] [place], [address] Serum or plasma alanine barnes otransferase (ALT) measurementOrdered By: Lucy Quick on 10-02-2024 ALT [Catalytic activity/Vol] 49 U/L Normal 13-56 [facility] Comment on above: Order Comment: 114.2 Performed By: #### L 500.4100, L501.9985, L500.4050, L100.0500 #### [facility] [address] [place], [address] Serum or plasma albumin catracho urement (mass/volume)Ordered By: Lucy Quick on 10-02-2024 Albumin [Mass/Vol] 2.5 g/dL Low 3.2-5.0 [facility] Comment on above: Order Comment: 114.2 Performed By: #### L 500.4100, L501.9985, L500.4050, L100.0500 #### [facility] [address] [place], [address] Serum or plasma alkaline sana sphatase measurementOrdered By: Lucy Quick on 10-02-2024 ALP [Catalytic activity/Vol] 56 U/L 45-117 [facility] Serum or plasma calcium catracho urement (mass/volume)Ordered By: Lucy Quick on 10-02-2024 Calcium [Mass/Vol] 8.4 mg/dL Low 8.5-10.1 [facility] Serum or plasma cholesterol measurement (mass/volume)Ordered By: Lucy Quick on 10-02-2024 Cholesterol [Mass/Vol] 191 mg/dL Normal 200 [facility] Comment on above: <200 mg/dL Desirable 200-240 mg/dL Borderline >240 mg/dL High Risk Order Comment: 114.2 Result Comment: <200 mg/dL Desirable 200-240 mg/dL Borderline >240 mg/dL High Risk Performed By: #### L 500.4100, L501.9985, L500.4050, L100.0500 #### [facility] [address] [place], [address] Serum or plasma creatinine m easurement (mass/volume)Ordered By: Lucy Quick on 10-02-2024 Creatinine [Mass/Vol] 1.69 mg/dL High 0.55-1.02 [facility] Comment on above: The validity of the calculated GFR & GFRAA in patients over 70 years has not been determined. Clinical correlation is essential. Order Comment: 114.2 Result Comment: The validity of the calculated GFR GFRAA in patients over 70 years has not been determined. Clinical correlation is essential. Performed By: #### L 500.4100, L501.9985, L500.4050, L100.0500 #### [facility] [address] [place], [address] Serum or plasma urea nitroge n measurement (mass/volume)Ordered By: Lucy Quick on 10-02-2024 Urea nitrogen [Mass/Vol] 50 mg/dL High 7-18 [facility] Comment on above: Order Comment: 114.2 Performed By: #### L 500.4100, L501.9985, L500.4050, L100.0500 #### [facility] [address] [place], [address] Sodium levelOrdered By: Alfonso Quick on 10-02-2024 Sodium [Moles/Vol] 138 mmol/L Normal 136-145 [facility] Comment on above: Order Comment: 114.2 Performed By: #### L 500.4100, L501.9985, L500.4050, L100.0500 #### [facility] [address] [place], [address] Total proteinOrdered By: Josee Quick on 10-02-2024 Protein [Mass/Vol] 5.5 g/dL Low 6.4-8.2 [facility] Triglycerides measurementOrd ered By: Lucy Quick on 10-02-2024 Triglyceride [Mass/Vol] 373 mg/dL High [facility] Comment on above: The drugs N-Acetylcy [...] = 500 mg/dL Performed By: #### L 500.4100, L501.9985, L500.4050, L100.0500 #### [facility] [address] [place], [place], [id number] Very low density lipoprotein (VLDL) cholesterol measurementOrdered By: Lucy Quick on 10-02-2024 VLDL Cholesterol 75 mg/dL High 5-40 [facility] White blood cell (WBC) count Ordered By: Lucy Quick on 10-02-2024 WBC (Bld) [#/Vol] 10.5 10*3/uL Normal 4.4-11.0 [facility] Comment on above: Order Comment: 114.2 Performed By: #### L 500.4100, L501.9985, L500.4050, L100.0500 #### [facility] [address] [place], [address] Basic Metabolic Profile (BMP )on 09-17-2024 BUN/CRE 29.9 RATIO High - [facility] Comment on above: Order Comment: 114.2 Performed By: #### L 500.4100, L501.9985, L500.4050, L100.0500 #### [facility] [address] [place], [address] CA,Total 9.0 mg/dL Normal 8.5-10.1 [facility] Comment on above: Order Comment: 114.2 Performed By: #### L 500.4100, L501.9985, L500.4050, L100.0500 #### [facility] [address] [place], [address] Chloride [Moles/Vol] 101 mmol/L Normal 98-107 [facility] Comment on above: Order Comment: 114.2 Performed By: #### L 500.4100, L501.9985, L500.4050, L100.0500 #### [facility] [address] [place], [address] CO2 [Moles/Vol] 34.0 mmol/L High 21.0-32.0 [facility] Comment on above: Order Comment: 114.2 Performed By: #### L 500.4100, L501.9985, L500.4050, L100.0500 #### [facility] [address] [place], [address] Creatinine [Mass/Vol] 1.27 mg/dL High 0.55-1.02 [facility] Comment on above: Order Comment: 114.2 Result Comment: The validity of the calculated GFR GFRAA in patients over 70 years has not been determined. Clinical correlation is essential. Performed By: #### L 500.4100, L501.9985, L500.4050, L100.0500 #### [facility] [address] [place], [address] EST GFR - AA 54 mL/min Low >60 [facility] Comment on above: Order Comment: 114.2 Result Comment: Afri can Gambian GFR Calc Performed By: #### L 500.4100, L501.9985, L500.4050, L100.0500 #### [facility] [address] [place], [address] GAP 5 Normal 5-15 [facility] Comment on above: Order Comment: 114.2 Performed By: #### L 500.4100, L501.9985, L500.4050, L100.0500 #### [facility] [address] [place], [address] GFR/1.73 sq M.predicted among non-blacks MDRD (S/P/Bld) [Vol rate/Area] 45 mL/min/{1.73_m2} Low >60 [facility] Comment on above: Order Comment: 114.2 Result Comment: Non- GFR Calc Performed By: #### L 500.4100, L501.9985, L500.4050, L100.0500 #### [facility] [address] [place], [address] Glucose [Mass/Vol] 137 mg/dL High 74-106 [facility] Comment on above: Order Comment: 114.2 Result Comment: Fast ing Glucose result greater than or equal to 126 mg/dL suggests DIABETES MELLITUS per A.D.A. criteria. Performed By: #### L 500.4100, L501.9985, L500.4050, L100.0500 #### [facility] [address] [place], [address] Potassium [Moles/Vol] 4.2 mmol/L Normal 3.5-5.1 [facility] Comment on above: Order Comment: 114.2 Performed By: #### L 500.4100, L501.9985, L500.4050, L100.0500 #### [facility] [address] [place], [address] Sodium [Moles/Vol] 140 mmol/L Normal 136-145 [facility] Comment on above: Order Comment: 114.2 Performed By: #### L 500.4100, L501.9985, L500.4050, L100.0500 #### [facility] [address] [place], [address] Urea nitrogen [Mass/Vol] 38 mg/dL High 7-18 [facility] Comment on above: Order Comment: 114.2 Performed By: #### L 500.4100, L501.9985, L500.4050, L100.0500 #### [facility] [address] [place], [address] Blood urea nitrogen (BUN)/cr eatinine ratioOrdered By: Lucy Quick on 09-17-2024 Urea nitrogen/Creatinine [Mass ratio] 29.9 mg/mg High 08-17 [facility] CBC-Complete Blood Cnt No Di ffon 09-17-2024 Erythrocyte distribution width (RBC) [Ratio] 12.5 % Normal 11.6-14.6 [facility] Comment on above: Order Comment: 114.2 Performed By: #### L 500.4100, L501.9985, L500.4050, L100.0500 #### [facility] [address] [place], [address] Hematocrit (Bld) [Volume fraction] 31.5 % Low 37-47 [facility] Comment on above: Order Comment: 114.2 Performed By: #### L 500.4100, L501.9985, L500.4050, L100.0500 #### [facility] [address] [place], [address] Hemoglobin (Bld) [Mass/Vol] 10.0 g/dL Low 12.0-15.0 [facility] Comment on above: Order Comment: 114.2 Performed By: #### L 500.4100, L501.9985, L500.4050, L100.0500 #### [facility] [address] [place], [address] MCH (RBC) [Entitic mass] 32.1 pg High 27.0-32.0 [facility] Comment on above: Order Comment: 114.2 Performed By: #### L 500.4100, L501.9985, L500.4050, L100.0500 #### [facility] [address] [place], [address] MCHC (RBC) [Mass/Vol] 31.7 g/dL Low 32-36 [facility] Comment on above: Order Comment: 114.2 Performed By: #### L 500.4100, L501.9985, L500.4050, L100.0500 #### [facility] [address] [place], [address] MCV (RBC) [Entitic vol] 101.0 fL High 81-99 [facility] Comment on above: Order Comment: 114.2 Performed By: #### L 500.4100, L501.9985, L500.4050, L100.0500 #### [facility] [address] [place], [address] Platelet mean volume (Bld) [Entitic vol] 8.9 fL Normal 6.2-12.0 [facility] Comment on above: Order Comment: 114.2 Performed By: #### L 500.4100, L501.9985, L500.4050, L100.0500 #### [facility] [address] [place], [address] Platelets (Bld) [#/Vol] 238 10*3/uL Normal 150-450 [facility] Comment on above: Order Comment: 114.2 Performed By: #### L 500.4100, L501.9985, L500.4050, L100.0500 #### [facility] [address] [place], [address] RBC (Bld) [#/Vol] 3.12 10*6/uL Low 4.2-5.4 [facility] Comment on above: Order Comment: 114.2 Performed By: #### L 500.4100, L501.9985, L500.4050, L100.0500 #### [facility] [address] [place], [address] RDW SD 46.8 fl High 35.1-43.9 [facility] Comment on above: Order Comment: 114.2 Performed By: #### L 500.4100, L501.9985, L500.4050, L100.0500 #### [facility] [address] [place], [address] WBC (Bld) [#/Vol] 8.8 10*3/uL Normal 4.4-11.0 [facility] Comment on above: Order Comment: 114.2 Performed By: #### L 500.4100, L501.9985, L500.4050, L100.0500 #### [facility] [address] [place], [address] Carbon dioxide measurementOr dered By: Lucy Quick on 09-17-2024 CO2 [Moles/Vol] 34.0 mmol/L High 21.0-32.0 [facility] Chloride measurementOrdered By: Lucy Quick on 09-17-2024 Chloride [Moles/Vol] 101 mmol/L 98-107 [facility] Erythrocyte distribution wid th ratioOrdered By: Lucy Quick on 09-17-2024 Erythrocyte distribution width (RBC) [Ratio] 12.5 % 11.6-14.6 [facility] Erythrocyte distribution wid th standard deviationOrdered By: Lucy Quick on 09-17-2024 Erythrocyte distribution width (RBC) [Entitic vol] 46.8 fL High 35.1-43.9 [facility] Estimated glomerular filtrat ion rate (GFR) AmericanOrdered By: Lucy Quick on 09-17-2024 Estimated GFR (MDRD) Amer 54 mL/min Low >60 [facility] Comment on above: GFR Calc Glomerular filtration rate ( GFR) estimationOrdered By: Lucy Quick on 09-17-2024 Estimated GFR (MDRD) Non-Af Amer 45 mL/min Low >60 [facility] Comment on above: Non- GFR Calc Glucose measurementOrdered B y: Lucy Quick on 09-17-2024 Glucose [Mass/Vol] 137 mg/dL High 74-106 [facility] Comment on above: Fasting Glucose resu lt greater than or equal to 126 mg/dL suggests DIABETES MELLITUS per A.D.A. criteria. Hematocrit Auto (Bld) [Volum e fraction]Ordered By: Lucy Quick on 09-17-2024 Hematocrit (Bld) [Volume fraction] 31.5 % Low 37-47 [facility] Hemoglobin measurementOrdere d By: Lucy Quick on 09-17-2024 Hemoglobin (Bld) [Mass/Vol] 10.0 g/dL Low 12.0-15.0 [facility] MCV (mean corpuscular volume ) determinationOrdered By: Lucy Quick on 09-17-2024 MCV (RBC) [Entitic vol] 101.0 fL High 81-99 [facility] Mean corpuscular hemoglobin (MCH) determinationOrdered By: Lucy Quick on 09-17-2024 MCH (RBC) [Entitic mass] 32.1 pg High 27.0-32.0 [facility] Mean corpuscular hemoglobin concentration (MCHC) determinationOrdered By: uLcy Quick on 09-17-2024 MCHC (RBC) [Mass/Vol] 31.7 g/dL Low 32-36 [facility] Mean platelet volume determi nationOrdered By: Lucy Quick on 09-17-2024 Platelet mean volume (Bld) [Entitic vol] 8.9 fL 6.2-12.0 [facility] Platelet countOrdered By: Jemal Campos on 09-17-2024 Platelets (Bld) [#/Vol] 238 10*3/uL 150-450 [facility] Potassium measurementOrdered By: Lucy Quick on 09-17-2024 Potassium [Moles/Vol] 4.2 mmol/L 3.5-5.1 [facility] RBC Auto (Bld) [#/Vol]Ordere d By: Lucy Quick on 09-17-2024 RBC (Bld) [#/Vol] 3.12 10*6/uL Low 4.2-5.4 [facility] Serum anion gap measurementO rdered By: Lucy Quick on 09-17-2024 Anion gap [Moles/Vol] 5 mmol/L 5-15 [facility] Serum or plasma calcium catracho urement (mass/volume)Ordered By: Lucy Quick on 09-17-2024 Calcium [Mass/Vol] 9.0 mg/dL 8.5-10.1 [facility] Serum or plasma creatinine m easurement (mass/volume)Ordered By: Lucy Quick on 09-17-2024 Creatinine [Mass/Vol] 1.27 mg/dL High 0.55-1.02 [facility] Comment on above: The validity of the calculated GFR & GFRAA in patients over 70 years has not been determined. Clinical correlation is essential. Serum or plasma urea nitroge n measurement (mass/volume)Ordered By: Lucy Quick on 09-17-2024 Urea nitrogen [Mass/Vol] 38 mg/dL High 7-18 [facility] Sodium levelOrdered By: Alfonso Quick on 09-17-2024 Sodium [Moles/Vol] 140 mmol/L 136-145 [facility] White blood cell (WBC) count Ordered By: Lucy Quick on 09-17-2024 WBC (Bld) [#/Vol] 8.8 10*3/uL 4.4-11.0 [facility] CARECOORDon 03-09-2024 CARECOORD Next Site of Care Admission Date: 03/05/2024 07:08 PM Patient Name: KIMBERLY PATEL Location: [address]/[id number] A Date of : 1955 - Placement Information - Referral Type:Long-Term ICF - Return Referral ID:[id number] Provider Name:[facility] [place] [facility] Address 1:[address] [place] [address] Address 2: City:[place] Selection Factors:Returning to Facility State:[facility] Care Coordination Jorge reich Note/Update Clinical Update: active discharge orders Discharge Plan: return to [facility] Discharge Barriers: none Chart reviewed. Received message from attending stating patient is cleared for discharge. Discharge orders in. ANN and med rec complete. Submitted ride request via [employer] - awaiting acceptance and confirmation. Received notification that cot transportation has been setup for 1000 with [employer]. Phoned patient's daughter, Alexandro Cote, at [phone]. Received VM identifying full name. LM to notify of patient discharge and transport time. Notified RN. RN will notify patient. Messaged facility via [employer] to notify. Sent AVS and MAR to facility via [employer]. TCC will remain available for any additional discharge needs. Normal [facility] CBC W Auto Differential pane l (Bld)on 03-09-2024 Basophils (Bld) [#/Vol] 0.0 10*3/uL 0.0 - 0.2 10*3/uL [facility] Basophils/100 WBC (Bld) 0.6 % 0.0 - 2.0 % [facility] Eosinophils (Bld) [#/Vol] 0.3 10*3/uL 0.0 - 0.5 10*3/uL [facility] Eosinophils/100 WBC (Bld) 5.4 % 0.0 - 6.0 % [facility] Erythrocyte distribution width (RBC) [Ratio] 17.4 % High 11.5 - 15.0 % [facility] Hematocrit (Bld) [Volume fraction] 25.7 % Low 35.0 - 47.0 % [facility] Hemoglobin (Bld) [Mass/Vol] 7.9 g/dL Low 11.7 - 16.0 g/dL [facility] Immature granulocytes (Bld) [#/Vol] 0.1 10*3/uL High NINF - 0.1 10*3/uL [facility] Immature granulocytes/100 WBC (Bld) 1.1 % 0.0 - 2.0 % [facility] Interpretation and review of laboratory results Abnormal [facility] Lymphocytes (Bld) [#/Vol] 2.2 10*3/uL 1.0 - 4.3 10*3/uL [facility] Lymphocytes/100 WBC (Bld) 34.3 % 15.0 - 45.0 % [facility] MCH (RBC) [Entitic mass] 29.4 pg 26.0 - 34.[address] [facility] MCHC (RBC) [Mass/Vol] 30.7 % 30.5 - 36.0 % [facility] MCV (RBC) [Entitic vol] 95.5 fL 77.0 - 99.[address] [facility] Monocytes (Bld) [#/Vol] 0.7 10*3/uL 0.0 - 0.9 10*3/uL [facility] Monocytes/100 WBC (Bld) 10.6 % 5.0 - 13.0 % [facility] Neutrophils (Bld) [#/Vol] 3.0 10*3/uL 1.8 - 7.5 10*3/uL [facility] Neutrophils/100 WBC (Bld) 48.0 % 38.0 - 82.0 % [facility] Nucleated RBC/100 WBC (Bld) [Ratio] 0.0 % [facility] Platelet mean volume (Bld) [Entitic vol] 8.6 fL Low 9.0 - 12.[address] [facility] Platelets (Bld) [#/Vol] 256 10*3/uL 140 - 440 10*3/uL [facility] RBC (Bld) [#/Vol] 2.69 10*6/uL Low 3.80 - 5.2 0 10*6/uL [facility] WBC (Bld) [#/Vol] 6.3 10*3/uL 3.6 - 10.7 10*3/uL [facility] CBC WITH AUTO DIFFERENTIALon 03-09-2024 Basophils (Bld) [#/Vol] 0.0 10*3/uL Normal 0.0-0.2 [facility] Comment on above: Performed By: #### L [id number] ####Service Coordinator: STEVIE ELMORE ([id number])[facility] ([facility])[address] [place] [address] Basophils/100 WBC (Bld) 0.6 % Normal 0.0-2.0 [facility] Comment on above: Performed By: #### L [id number] ####Service Coordinator: STEVIE ELMORE ([id number])[facility] ([facility])[address] Eosinophils (Bld) [#/Vol] 0.3 10*3/uL Normal 0.0-0.5 [facility] Comment on above: Performed By: #### L [id number] ####Service Coordinator: STEVIE [id number])[facility] (SBHLAB)[address] Eosinophils/100 WBC (Bld) 5.4 % Normal 0.0-6.0 [facility] Comment on above: Performed By: #### L [id number] ####Service Coordinator: STEVIE ELMORE ([id number])[facility] [place] ([facility])[address] Erythrocyte distribution width (RBC) [Ratio] 17.4 % High 11.5-15.0 [facility] Comment on above: Performed By: #### L [id number] ####Service Coordinator: STEVIE ELMORE ([id number])[facility] [place] ([facility])[address] Hematocrit (Bld) [Volume fraction] 25.7 % Low 35.0-47.0 [facility] Comment on above: Performed By: #### L [id number] ####Service Coordinator: STEVIE ELMORE ([id number])[facility] [place] ([facility])[address] Hemoglobin (Bld) [Mass/Vol] 7.9 g/dL Low 11.7-16.0 [facility] Comment on above: Performed By: #### L [id number] ####Service Coordinator: STEVIE ELMORE ([id number])[facility] [place] ([facility])[address] IMMATURE GRANS % 1.1 % Normal 0.0-2.0 [facility] Comment on above: Performed By: #### L [id number] ####Service Coordinator: STEVIE ELMORE ([id number])[facility] [place] ([facility])[address] IMMATURE GRANS ABSOLUTE 0.1 10*3/uL High <0.1 [facility] Comment on above: Performed By: #### L [id number] ####Service Coordinator: STEVIE ELMORE ([id number])[facility] [place] ([facility])[address] Lymphocytes (Bld) [#/Vol] 2.2 10*3/uL Normal 1.0-4.3 [facility] Comment on above: Performed By: #### L [id number] ####Service Coordinator: STEVIE ELMORE ([id number])[facility] [place] ([facility])[address] Lymphocytes/100 WBC (Bld) 34.3 % Normal 15.0-45.0 [facility] Comment on above: Performed By: #### L [id number] ####Service Coordinator: STEVIE ELMORE ([id number])[facility] ([facility])[address] MCH (RBC) [Entitic mass] 29.4 pg Normal 26.0-34.0 [facility] Comment on above: Performed By: #### L [id number] ####Service Coordinator: STEVIE ELMORE ([id number])[facility] ([facility])[address] [place] [address] MCHC 30.7 % Normal 30.5-36.0 [facility] Comment on above: Performed By: #### L [id number] ####Service Coordinator: STEVIE ELMORE ([id number])[facility] ([facility])[address] [place] [address] MCV (RBC) [Entitic vol] 95.5 fL Normal 77.0-99.0 [facility] Comment on above: Performed By: #### L [id number] ####Service Coordinator: STEVIE ELMORE ([id number])[facility] [place] ([facility])[address] Monocytes (Bld) [#/Vol] 0.7 10*3/uL Normal 0.0-0.9 [facility] Comment on above: Performed By: #### L [id number] ####Service Coordinator: STEVIE ELMORE ([id number])[facility] ([facility])[address] Monocytes/100 WBC (Bld) 10.6 % Normal 5.0-13.0 [facility] Comment on above: Performed By: #### L [id number] ####Service Coordinator: STEVIE ELMORE ([id number])[facility] ([facility])[address] NEUTROPHILS ABSOLUTE 3.0 10*3/uL Normal 1.8-7.5 [facility] Comment on above: Performed By: #### L [id number] ####Service Coordinator: STEVIE ELMORE ([id number])[facility] ([facility])[address] Neutrophils/100 WBC (Bld) 48.0 % Normal 38.0-82.0 [facility] Comment on above: Performed By: #### L [id number] ####Service Coordinator: STEVIE ELMORE ([id number])[facility] [place] ([facility])[address] NRBC 0.0 /100 WBCs Normal 0.0-2.0 [facility] Comment on above: Performed By: #### L [id number] ####Service Coordinator: STEVIE ELMORE ([id number])[facility] [place] ([facility])[address] Platelet mean volume (Bld) [Entitic vol] 8.6 fL Low 9.0-12.7 [facility] Comment on above: Performed By: #### L [id number] ####Service Coordinator: STEVIE ELMORE ([id number])[facility] [place] ([facility])[address] [place] [address] [place] Platelets (Bld) [#/Vol] 256 10*3/uL Normal 140-440 [facility] Comment on above: Performed By: #### L [id number] ####Service Coordinator: STEVIE ELMORE ([id number])[facility] [place] ([facility])[address] RBC (Bld) [#/Vol] 2.69 10*6/uL Low 3.80-5.20 [facility] Comment on above: Performed By: #### L [id number] ####Service Coordinator: STEVIE ELMORE ([id number])[facility] ([facility])[address] WBC (Bld) [#/Vol] 6.3 10*3/uL Normal 3.6-10.7 [facility] Comment on above: Performed By: #### L [id number] ####Service Coordinator: STEVIE ELMORE ([id number])[facility] ([facility])[address] COMPREHENSIVE METABOLIC PANE Wade 03-09-2024 Albumin [Mass/Vol] 2.5 g/dL Low 3.5-5.0 [facility] Comment on above: Performed By: #### L AB103, LAB17 #### Service Coordinator: STEVIE ELMORE ([id number]) [facility] ([facility]) [address] ALP [Catalytic activity/Vol] 82 U/L Normal 38-126 [facility] Comment on above: Performed By: #### L AB103, LAB17 #### Service Coordinator: STEVIE ELMORE ([id number]) [facility] ([facility]) [address] ALT [Catalytic activity/Vol] 18 U/L Normal 0-34 [facility] Comment on above: Performed By: #### L AB103, LAB17 #### Service Coordinator: STEVIE ELMORE ([id number]) [facility] ([facility]) [address] Anion gap [Moles/Vol] 5 mmol/L Normal 3-13 [facility] Comment on above: Performed By: #### L AB103, LAB17 #### Service Coordinator: STEVIE ELMORE ([id number]) [facility] ([facility]) [address] [place] [address] [place] AST [Catalytic activity/Vol] 17 U/L Normal 15-46 [facility] Comment on above: Performed By: #### L AB103, LAB17 #### Service Coordinator: STEVIE ELMORE ([id number]) [facility] ([facility]) [address] [place] [address] [place] Bilirubin [Mass/Vol] 0.3 mg/dL Normal 0.2-1.3 [facility] Comment on above: Performed By: #### L AB103, LAB17 #### Service Coordinator: STEVIE ELMORE ([id number]) [facility] ([facility]) [address] Calcium [Mass/Vol] 7.8 mg/dL Low 8.4-10.4 [facility] Comment on above: Performed By: #### L AB103, LAB17 #### Service Coordinator: STEVIE ELMORE ([id number]) [facility] ([facility]) [address] [place] [address] [place] Chloride [Moles/Vol] 108 mmol/L High 98-107 [facility] Comment on above: Performed By: #### L AB103, LAB17 #### Service Coordinator: STEVIE ELMORE ([id number]) [facility] ([facility]) [address] [place] [address] [place] CO2 [Moles/Vol] 26 mmol/L Normal 22-30 [facility] Comment on above: Performed By: #### L AB103, LAB17 #### Service Coordinator: STEVIE ELMORE ([id number]) [facility] [place] ([facility]) [address] [place] [address] [place] Creatinine [Mass/Vol] 1.22 mg/dL High 0.52-1.04 [facility] Comment on above: Performed By: #### L AB103, LAB17 #### Service Coordinator: STEVIE ELMORE ([id number]) [facility] ([facility]) [address] GLOMERULAR FILTRATION RATE ML/MIN/1.73 SQ M.PREDICTED 49.0 mL/min/1.73m*2 Low >60.0 [facility] Comment on above: Result Comment: Calc ulation based on the Chronic Kidney Disease Epidemiology Collaboration (CKD-EPI) equation refit without adjustment for race Performed By: #### L AB103, LAB17 #### Service Coordinator: STEVIE ELMORE ([id number]) [facility] (SBHL[facility]) [address] [place] [address] [place] Glucose [Mass/Vol] 147 mg/dL High 70-100 [facility] Comment on above: Performed By: #### L AB103, LAB17 #### Service Coordinator: STEVIE ELMORE ([id number]) [facility] ([facility]) [address] Potassium [Moles/Vol] 4.6 mmol/L Normal 3.5-5.1 [facility] Comment on above: Performed By: #### L AB103, LAB17 #### Service Coordinator: STEVIE ELMORE ([id number]) [facility] ([facility]) [address] Protein [Mass/Vol] 4.8 g/dL Low 6.3-8.2 [facility] Comment on above: Performed By: #### L AB103, LAB17 #### Service Coordinator: STEVIE ELMORE ([id number]) [facility] ([facility]) [address] [place] [address] [place] Sodium [Moles/Vol] 138 mmol/L Normal 135-145 [facility] Comment on above: Performed By: #### L AB103, LAB17 #### Service Coordinator: STEVIE ELMORE ([id number]) [facility] ([facility]) [address] [place] [address] [place] Urea nitrogen [Mass/Vol] 26 mg/dL High 7-17 [facility] Comment on above: Performed By: #### L AB103, LAB17 #### Service Coordinator: STEVIE ELMORE ([id number]) [facility] (SBHL[facility]) [address] Comprehensive metabolic 1998 panelon 03-09-2024 Albumin [Mass/Vol] 2.5 g/dL Low 3.5 - 5.0 g/dL [facility] ALP [Catalytic activity/Vol] 82 U/L 38 - 126 U/L [facility] ALT [Catalytic activity/Vol] 18 U/L 0 - 34 U/L [facility] Anion gap [Moles/Vol] 5 mmol/L 3 - 13 mmol/L [facility] AST [Catalytic activity/Vol] 17 U/L 15 - 46 U/L [facility] Bilirubin [Mass/Vol] 0.3 mg/dL 0.2 - 1 .3 mg/dL [facility] Calcium [Mass/Vol] 7.8 mg/dL Low 8.4 - 10. 4 mg/dL [facility] Chloride [Moles/Vol] 108 mmol/L High 98 - 10 7 mmol/L [facility] CO2 [Moles/Vol] 26 mmol/L 22 - 30 mmol/L [facility] Creatinine [Mass/Vol] 1.22 mg/dL High 0.52 - 1.04 mg/dL [facility] GFR/1.73 sq M.predicted MDRD (S/P/Bld) [Vol rate/Area] 49.0 mL/min/{1.73_m2} Low - PINF [facility] Comment on above: Calculation based on the Chronic Kidney Disease Epidemiology Collaboration (CKD-EPI) equation refit without adjustment for race Glucose [Mass/Vol] 147 mg/dL High 70 - 100 mg/dL [facility] Interpretation and review of laboratory results Abnormal [facility] Potassium [Moles/Vol] 4.6 mmol/L 3.5 - 5.1 mmol/L [facility] Protein [Mass/Vol] 4.8 g/dL Low 6.3 - 8.2 g/dL [facility] Sodium [Moles/Vol] 138 mmol/L 135 - 145 mmol/L [facility] Urea nitrogen [Mass/Vol] 26 mg/dL High 7 - 17 mg/dL [facility] Laboratory - Chemistry and C hemistry - challengeon 03-09-2024 Glucose [Mass/Vol] 152 mg/dL High 70 - 100 mg/dL [facility] No Panel Informationon 03-09 Interpretation and review of laboratory results Abnormal [facility] Performed by: [facility], [address] [place] [address], [place] [address] CLIA ID: [id number] [facility] Radiology Study observation (narrative) Gloria Sims alth Bacteria identified Cx Nom ( U)Ordered By: Herrera Macedo on 03-08-2024 Interpretation and review of laboratory results Abnormal [facility] CARECOORDon 03-08-2024 [facility] Care Coordination Jorge reich Note/Update Clinical Update: blood cultures from 03/07 resulted as normal this AM so, per 03/07 ID note, no further antimicrobial treatment is needed. No leukocytosis per this morning's labs. Discharge Plan: return to [facility] Discharge Barriers: clinical stability Chart reviewed. Messaged attending to check on clinical stability for discharge. Awaiting response back. Received response back stating, "further discussion with ID yesterday they were recommending negative cultures x72 hours, so patient will not be discharged today. if labs are stable tomorrow, plan for discharge tomorrow." TCC will continue to follow. Normal [facility] CBC W Auto Differential pane l (Bld)Ordered By: Lindsay Mcintosh on 03-08-2024 Basophils (Bld) [#/Vol] 0.0 10*3/uL 0.0 - 0.2 10*3/uL [facility] Basophils/100 WBC (Bld) 0.4 % 0.0 - 2.0 % [facility] Eosinophils (Bld) [#/Vol] 0.3 10*3/uL 0.0 - 0.5 10*3/uL [facility] Eosinophils/100 WBC (Bld) 4.5 % 0.0 - 6.0 % [facility] Erythrocyte distribution width (RBC) [Ratio] 17.2 % High 11.5 - 15.0 % [facility] Hematocrit (Bld) [Volume fraction] 27.5 % Low 35.0 - 47.0 % [facility] Hemoglobin (Bld) [Mass/Vol] 8.3 g/dL Low 11.7 - 16.0 g/dL [facility] Immature granulocytes (Bld) [#/Vol] 0.1 10*3/uL High NINF - 0.1 10*3/uL [facility] Immature granulocytes/100 WBC (Bld) 1.0 % 0.0 - 2.0 % [facility] Interpretation and review of laboratory results Abnormal [facility] Lymphocytes (Bld) [#/Vol] 2.3 10*3/uL 1.0 - 4.3 10*3/uL [facility] Lymphocytes/100 WBC (Bld) 32.6 % 15.0 - 45.0 % [facility] MCH (RBC) [Entitic mass] 28.5 pg 26.0 - 34.[address] [facility] MCHC (RBC) [Mass/Vol] 30.2 % Low 30.5 - 36.0 % [facility] MCV (RBC) [Entitic vol] 94.5 fL 77.0 - 99.[address] [facility] Monocytes (Bld) [#/Vol] 0.8 10*3/uL 0.0 - 0.9 10*3/uL [facility] Monocytes/100 WBC (Bld) 11.7 % 5.0 - 13.0 % [facility] Neutrophils (Bld) [#/Vol] 3.5 10*3/uL 1.8 - 7.5 10*3/uL [facility] Neutrophils/100 WBC (Bld) 49.8 % 38.0 - 82.0 % [facility] Nucleated RBC/100 WBC (Bld) [Ratio] 0.0 % [facility] Platelet mean volume (Bld) [Entitic vol] 8.5 fL Low 9.0 - 12.[address] [facility] Platelets (Bld) [#/Vol] 298 10*3/uL 140 - 440 10*3/uL [facility] RBC (Bld) [#/Vol] 2.91 10*6/uL Low 3.80 - 5.2 0 10*6/uL [facility] WBC (Bld) [#/Vol] 6.9 10*3/uL 3.6 - 10.7 10*3/uL [facility] CBC WITH AUTO DIFFERENTIALon 03-08-2024 Basophils (Bld) [#/Vol] 0.0 10*3/uL Normal 0.0-0.2 [facility] Comment on above: Performed By: #### L [id number] #### Service Coordinator: STEVIE ELMORE ([id number]) [facility] ([facility]) [address] Basophils/100 WBC (Bld) 0.4 % Normal 0.0-2.0 [facility] Comment on above: Performed By: #### L [id number] #### Service Coordinator: STEVIE ELMORE ([id number]) [facility] [place] ([facility]) [address] Eosinophils (Bld) [#/Vol] 0.3 10*3/uL Normal 0.0-0.5 [facility] Comment on above: Performed By: #### L [id number] #### Service Coordinator: STEVIE ELMORE ([id number]) [facility] [place] ([facility]) [address] Eosinophils/100 WBC (Bld) 4.5 % Normal 0.0-6.0 [facility] Comment on above: Performed By: #### L [id number] #### Service Coordinator: STEVIE ELMORE ([id number]) [facility] ([facility]) [address] Erythrocyte distribution width (RBC) [Ratio] 17.2 % High 11.5-15.0 [facility] Comment on above: Performed By: #### L [id number] #### Service Coordinator: STEVIE ELMORE ([id number]) [facility] [place] ([facility]) [address] Hematocrit (Bld) [Volume fraction] 27.5 % Low 35.0-47.0 [facility] Comment on above: Performed By: #### L [id number] #### Service Coordinator: STEVIE ELMORE ([id number]) [facility] ([facility]) [address] Hemoglobin (Bld) [Mass/Vol] 8.3 g/dL Low 11.7-16.0 [facility] Comment on above: Performed By: #### L [id number] #### Service Coordinator: STEVIE ELMORE ([id number]) [facility] ([facility] [address] IMMATURE GRANS % 1.0 % Normal 0.0-2.0 [facility] Comment on above: Performed By: #### L [id number] #### Service Coordinator: STEVIE ELMORE ([id number]) [facility] ([facility]) [address] IMMATURE GRANS ABSOLUTE 0.1 10*3/uL High <0.1 [facility] Comment on above: Performed By: #### L [id number] #### Service Coordinator: STEVIE ELMORE ([id number]) [facility] ([facility]) [address] Lymphocytes (Bld) [#/Vol] 2.3 10*3/uL Normal 1.0-4.3 [facility] Comment on above: Performed By: #### L [id number] #### Service Coordinator: STEVIE ELMORE ([id number]) [facility] ([facility]) [address] Lymphocytes/100 WBC (Bld) 32.6 % Normal 15.0-45.0 [facility] Comment on above: Performed By: #### L [id number] #### Service Coordinator: STEVIE ELMORE ([phone]) [facility] ([facility]) [address] MCH (RBC) [Entitic mass] 28.5 pg Normal 26.0-34.0 [facility] Comment on above: Performed By: #### L [id number] #### Service Coordinator: STEVIE ELMORE ([phone]) [facility] ([facility]) [address] [facility] 30.2 % Low 30.5-36.0 [facility] Comment on above: Performed By: #### L [id number] #### Service Coordinator: STEVIE PUTNAMPERICO ([phone]) [facility] [place] ([facility]) [address] MCV (RBC) [Entitic vol] 94.5 fL Normal 77.0-99.0 [facility] Comment on above: Performed By: #### L [id number] #### Service Coordinator: STEVIE PUTNAMPERICO ([id number]) [facility] [place] ([facility]) [address] Monocytes (Bld) [#/Vol] 0.8 10*3/uL Normal 0.0-0.9 [facility] Comment on above: Performed By: #### L [id number] #### Service Coordinator: STEVIE ELMORE ([id number]) [facility] [place] [facility] [address] Monocytes/100 WBC (Bld) 11.7 % Normal 5.0-13.0 [facility] Comment on above: Performed By: #### L [id number] #### Service Coordinator: STEVIE ELMORE ([phone]) [facility] [place] ([facility]) [address] NEUTROPHILS ABSOLUTE 3.5 10*3/uL Normal 1.8-7.5 [facility] Comment on above: Performed By: #### L [id number] #### Service Coordinator: STEVIE ELMORE ([phone]) [facility] [place] ([facility]) [address] Neutrophils/100 WBC (Bld) 49.8 % Normal 38.0-82.0 [facility] Comment on above: Performed By: #### L [id number] #### Service Coordinator: STEVIE ELMORE ([phone]) [facility] [place] ([facility] [address] [place] [address] [place] NRBC 0.0 /100 WBCs Normal 0.0-2.0 [facility] Comment on above: Performed By: #### L [id number] #### Service Coordinator: STEVIE ELMORE ([id number]) [facility] [address] Platelet mean volume (Bld) [Entitic vol] 8.5 fL Low 9.0-12.7 [facility] Comment on above: Performed By: #### L [id number] #### Service Coordinator: STEVIE ELMORE ([phone]) [facility] ([facility]) [address] Platelets (Bld) [#/Vol] 298 10*3/uL Normal 140-440 [facility] Comment on above: Performed By: #### L [id number] #### Service Coordinator: STEVIE ELMORE ([id number]) [facility] [address] RBC (Bld) [#/Vol] 2.91 10*6/uL Low 3.80-5.20 [facility] Comment on above: Performed By: #### L [id number] #### Service Coordinator: STEVIE ELMORE ([id number]) [facility] [address] WBC (Bld) [#/Vol] 6.9 10*3/uL Normal 3.6-10.7 [facility] Comment on above: Performed By: #### L [id number] #### Service Coordinator: STEVIE ELMORE ([phone]) [facility] [address] COMPREHENSIVE METABOLIC PANE Wade 03-08-2024 Albumin [Mass/Vol] 2.6 g/dL Low 3.5-5.0 [facility] Comment on above: Performed By: #### L AB103, LAB17 #### Service Coordinator: STEVIE ELMORE ([phone]) [facility] ([facility]) [address] [place] [address] [place] ALP [Catalytic activity/Vol] 86 U/L Normal 38-126 [facility] Comment on above: Performed By: #### L AB103, LAB17 #### Service Coordinator: STEVIE ELMORE ([phone]) [facility] ([facility]) [address] [place] [address] [place] ALT [Catalytic activity/Vol] 21 U/L Normal 0-34 [facility] Comment on above: Performed By: #### L AB103, LAB17 #### Service Coordinator: STEVIE ELMORE ([id number]) [facility] [address] Anion gap [Moles/Vol] 1 mmol/L Low 3-13 [facility] Comment on above: Performed By: #### L AB103, LAB17 #### Service Coordinator: STEVIE ELMORE ([phone]) [facility] ([facility] [address] [place] [address] [place] AST [Catalytic activity/Vol] 24 U/L Normal 15-46 [facility] Comment on above: Performed By: #### L AB103, LAB17 #### Service Coordinator: STEVIE ELMORE ([phone]) [facility] ([facility]) [address] [place] [address] [place] Bilirubin [Mass/Vol] 0.3 mg/dL Normal 0.2-1.3 [facility] Comment on above: Performed By: #### L AB103, LAB17 #### Service Coordinator: STEVIE ELMORE ([phone]) [facility] [address] [place] [address] [place] Calcium [Mass/Vol] 8.4 mg/dL Normal 8.4-10.4 [facility] Comment on above: Performed By: #### L AB103, LAB17 #### Service Coordinator: STEVIE ELMORE ([phone]) [facility] ([facility]) [address] [place] [address] [place] Chloride [Moles/Vol] 108 mmol/L High 98-107 [facility] Comment on above: Performed By: #### L AB103, LAB17 #### Service Coordinator: STEVIE ELMORE ([phone]) [facility] ([facility]) [address] CO2 [Moles/Vol] 29 mmol/L Normal 22-30 [facility] Comment on above: Performed By: #### L AB103, LAB17 #### Service Coordinator: STEVIE ELMORE ([phone]) [facility] [address] Creatinine [Mass/Vol] 1.24 mg/dL High 0.52-1.04 [facility] Comment on above: Performed By: #### L AB103, LAB17 #### Service Coordinator: STEVIE ELMORE ([phone]) [facility] [address] GLOMERULAR FILTRATION RATE ML/MIN/1.73 SQ M.PREDICTED 48.1 mL/min/1.73m*2 Low >60.0 [facility] Comment on above: Result Comment: Calc ulation based on the Chronic Kidney Disease Epidemiology Collaboration (CKD-EPI) equation refit without adjustment for race Performed By: #### L AB103, LAB17 #### Service Coordinator: STEVIE ELMORE ([phone]) [facility] ([facility]) [address] Glucose [Mass/Vol] 75 mg/dL Normal 70-100 [facility] Comment on above: Performed By: #### L AB103, LAB17 #### Service Coordinator: STEVIE ELMORE ([phone]) [facility] [address] Potassium [Moles/Vol] 4.2 mmol/L Normal 3.5-5.1 [facility] Comment on above: Performed By: #### L AB103, LAB17 #### Service Coordinator: STEVIE ELMORE ([id number]) [facility] ([facility] [address] Protein [Mass/Vol] 5.2 g/dL Low 6.3-8.2 [facility] Comment on above: Performed By: #### L AB103, LAB17 #### Service Coordinator: STEVIE ELMORE ([phone]) [facility] ([facility]) [address] Sodium [Moles/Vol] 138 mmol/L Normal 135-145 [facility] Comment on above: Performed By: #### L AB103, LAB17 #### Service Coordinator: STEVIE ELMORE ([phone]) [facility] ([facility]) [address] Urea nitrogen [Mass/Vol] 23 mg/dL High 7-17 [facility] Comment on above: Performed By: #### L AB103, LAB17 #### Service Coordinator: STEVIE ELMORE ([id number]) [facility] ([facility]) [address] Comprehensive metabolic 1998 panelon 03-08-2024 Albumin [Mass/Vol] 2.6 g/dL Low 3.5 - 5.0 g/dL [facility] ALP [Catalytic activity/Vol] 86 U/L 38 - 126 U/L [facility] ALT [Catalytic activity/Vol] 21 U/L 0 - 34 U/L [facility] Anion gap [Moles/Vol] 1 mmol/L Low 3 - 13 mmol/L [facility] AST [Catalytic activity/Vol] 24 U/L 15 - 46 U/L [facility] Bilirubin [Mass/Vol] 0.3 mg/dL 0.2 - 1 .3 mg/dL [facility] Calcium [Mass/Vol] 8.4 mg/dL 8.4 - 10. 4 mg/dL [facility] Chloride [Moles/Vol] 108 mmol/L High 98 - 10 7 mmol/L [facility] CO2 [Moles/Vol] 29 mmol/L 22 - 30 mmol/L [facility] Creatinine [Mass/Vol] 1.24 mg/dL High 0.52 - 1.04 mg/dL [facility] GFR/1.73 sq M.predicted MDRD (S/P/Bld) [Vol rate/Area] 48.1 mL/min/{1.73_m2} Low - PINF [facility] Comment on above: Calculation based on the Chronic Kidney Disease Epidemiology Collaboration (CKD-EPI) equation refit without adjustment for race Glucose [Mass/Vol] 75 mg/dL 70 - 100 mg/dL [facility] Interpretation and review of laboratory results Abnormal [facility] Potassium [Moles/Vol] 4.2 mmol/L 3.5 - 5.1 mmol/L [facility] Protein [Mass/Vol] 5.2 g/dL Low 6.3 - 8.2 g/dL [facility] Sodium [Moles/Vol] 138 mmol/L 135 - 145 mmol/L [facility] Urea nitrogen [Mass/Vol] 23 mg/dL High 7 - 17 mg/dL [facility] Laboratory - Chemistry and C hemistry - challengeon 03-08-2024 Glucose [Mass/Vol] 208 mg/dL High 70 - 100 mg/dL [facility] Glucose [Mass/Vol] 212 mg/dL High 70 - 100 mg/dL [facility] Glucose [Mass/Vol] 81 mg/dL 70 - 100 mg/dL [facility] Glucose [Mass/Vol] 74 mg/dL 70 - 100 mg/dL [facility] Laboratory - Microbiology an d Antimicrobial susceptibilityOrdered By: Herrera Macedo on 03-08-2024 Bacteria identified Cx Nom (U) 50,000-90,000 CFU/mL Enterococcus raffinosus Abnormal [facility] Comment on above: Susceptibility testi ng performed only upon request for cultures with multiple types of microorganisms below 100,000 CFU/ml. Bacteria identified Cx Nom (U) 10,000-50,000 CFU/mL Jose albicans Abnormal [facility] No Panel Informationon 03-08 Interpretation and review of laboratory results Abnormal [facility] Performed by: [facility], [address] [place] [address] CLIA ID: [id number] [facility] Interpretation and review of laboratory results Abnormal [facility] Performed by: [facility], [address] [place] [address] CLIA ID: [id number] [facility] Interpretation and review of laboratory results Normal [facility] Performed by: [facility], [address] [place] [address] CLIA ID: [id number] [facility] Interpretation and review of laboratory results Normal [facility] Performed by: [facility], [address] [facility] [address] CLIA ID: [id number] [facility] Radiology Study observation (narrative) [facility] Rad[facility] Study observation (narrative) [facility] Study observation (narrative) [facility] Study observation (narrative) [facility] BASIC METABOLIC PANELon 05--2023 Anion gap [Moles/Vol] 5 mmol/L Normal 3-13 [facility] Comment on above: Performed By: #### L AB103, LAB17 #### Service Coordinator: STEVIE ELMORE ([phone]) [facility] ([facility]) [address] [place] [address] [place] Calcium [Mass/Vol] 8.7 mg/dL Normal 8.4-10.4 [facility] Comment on above: Performed By: #### L AB103, LAB17 #### Service Coordinator: STEVIE ELMORE ([id number]) [facility] (HLAB) [address] [place] [address] [place] Chloride [Moles/Vol] 106 mmol/L Normal 98-107 [facility] Comment on above: Performed By: #### L AB103, LAB17 #### Service Coordinator: STEVIE ELMORE ([phone]) [facility] ([facility]) [address] [place] [address] [place] CO2 [Moles/Vol] 27 mmol/L Normal 22-30 [facility] Comment on above: Performed By: #### L AB103, LAB17 #### Service Coordinator: STEVIE ELMORE ([phone]) [facility] ([facility]) [address] [place] [address] [place] Creatinine [Mass/Vol] 1.12 mg/dL High 0.52-1.04 [facility] Comment on above: Performed By: #### L AB103, LAB17 #### Service Coordinator: STEVIE ELMORE ([phone]) [facility] ([facility]) [address] GLOMERULAR FILTRATION RATE ML/MIN/1.73 SQ M.PREDICTED 54.3 mL/min/1.73m*2 Low >60.0 [facility] Comment on above: Result Comment: Calc ulation based on the Chronic Kidney Disease Epidemiology Collaboration (CKD-EPI) equation refit without adjustment for race Performed By: #### L AB103, LAB17 #### Service Coordinator: STEVIE ELMORE ([phone]) [facility] [address] Glucose [Mass/Vol] 75 mg/dL Normal 70-100 [facility] Comment on above: Performed By: #### L AB103, LAB17 #### Service Coordinator: STEVIE ELMORE ([id number]) [facility] ([facility]) [address] Potassium [Moles/Vol] 4.0 mmol/L Normal 3.5-5.1 [facility] Comment on above: Performed By: #### L AB103, LAB17 #### Service Coordinator: STEVIE ELMORE ([id number]) [facility] ([facility]) [address] Sodium [Moles/Vol] 137 mmol/L Normal 135-145 [facility] Comment on above: Performed By: #### L AB103, LAB17 #### Service Coordinator: STEVIE ELMORE ([phone]) [facility] ([facility]) [address] [place] [address] [place] Urea nitrogen [Mass/Vol] 21 mg/dL High 7-17 [facility] Comment on above: Performed By: #### L AB103, LAB17 #### Service Coordinator: STEVIE ELMORE ([phone]) [facility] ([facility]) [address] [place] [address] [place] BLOOD CULTUREon 05-10-2024 Bacteria identified Cx Nom (Bld) BLOOD CULTURE Reference No growth at 5 days ORDER COMMENTS: Blood Collection Site: Right Forearm [ S = SUSCEPTIBLE R = RESISTANT I = INTERMEDIATE S-DD = Susceptible-dose dependent NS = Non-susceptible NO = No Interpretation ] Normal [facility] Comment on above: Performed By: #### L [id number] ####Service Coordinator: SILVIA FRENCH ([phone])[address] Bacteria identified Cx Nom (Bld) BLOOD CULTURE Reference No growth at 5 days ORDER COMMENTS: Blood Collection Site: Right Wrist [ S = SUSCEPTIBLE R = RESISTANT I = INTERMEDIATE S-DD = Susceptible-dose dependent NS = Non-susceptible NO = No Interpretation ] Normal [facility] Comment on above: Performed By: #### L [id number] ####Service Coordinator: SILVIA FRENCH ([phone])[address] Basic metabolic 1998 panelon 03-07-2024 Anion gap [Moles/Vol] 5 mmol/L 3 - 13 mmol/L [facility] Calcium [Mass/Vol] 8.7 mg/dL 8.4 - 10. 4 mg/dL [facility] Chloride [Moles/Vol] 106 mmol/L 98 - 10 7 mmol/L [facility] CO2 [Moles/Vol] 27 mmol/L 22 - 30 mmol/L [facility] Creatinine [Mass/Vol] 1.12 mg/dL High 0.52 - 1.04 mg/dL [facility] GFR/1.73 sq M.predicted MDRD (S/P/Bld) [Vol rate/Area] 54.3 mL/min/{1.73_m2} Low - PINF [facility] Comment on above: Calculation based on the Chronic Kidney Disease Epidemiology Collaboration (CKD-EPI) equation refit without adjustment for race Glucose [Mass/Vol] 75 mg/dL 70 - 100 mg/dL [facility] Interpretation and review of laboratory results Abnormal [facility] Potassium [Moles/Vol] 4.0 mmol/L 3.5 - 5.1 mmol/L [facility] Sodium [Moles/Vol] 137 mmol/L 135 - 145 mmol/L [facility] Urea nitrogen [Mass/Vol] 21 mg/dL High 7 - 17 mg/dL [facility] CARECOORDon 03-07-[address] Talamantes's note, anticipated dc is for 03/08/24. Pt transport is set in WILL CALL with [employer] for 03/08/24. Normal [facility] CBC W Auto Differential pane l (Bld)on 03-07-2024 Basophils (Bld) [#/Vol] 0.1 10*3/uL 0.0 - 0.2 10*3/uL [facility] Basophils/100 WBC (Bld) 0.6 % 0.0 - 2.0 % [facility] Eosinophils (Bld) [#/Vol] 0.3 10*3/uL 0.0 - 0.5 10*3/uL [facility] Eosinophils/100 WBC (Bld) 3.6 % 0.0 - 6.0 % [facility] Erythrocyte distribution width (RBC) [Ratio] 16.8 % High 11.5 - 15.0 % [facility] Hematocrit (Bld) [Volume fraction] 26.5 % Low 35.0 - 47.0 % [facility] Hemoglobin (Bld) [Mass/Vol] 8.4 g/dL Low 11.7 - 16.0 g/dL [facility] Immature granulocytes (Bld) [#/Vol] 0.1 10*3/uL High NINF - 0.1 10*3/uL [facility] Immature granulocytes/100 WBC (Bld) 0.9 % 0.0 - 2.0 % [facility] Interpretation and review of laboratory results Abnormal [facility] Lymphocytes (Bld) [#/Vol] 2.1 10*3/uL 1.0 - 4.3 10*3/uL [facility] Lymphocytes/100 WBC (Bld) 26.3 % 15.0 - 45.0 % [facility] MCH (RBC) [Entitic mass] 29.0 pg 26.0 - 34.[address] [facility] MCHC (RBC) [Mass/Vol] 31.7 % 30.5 - 36.0 % [facility] MCV (RBC) [Entitic vol] 91.4 fL 77.0 - 99.0 fL [facility] Monocytes (Bld) [#/Vol] 0.9 10*3/uL 0.0 - 0.9 10*3/uL [facility] Monocytes/100 WBC (Bld) 11.0 % 5.0 - 13.0 % [facility] Neutrophils (Bld) [#/Vol] 4.7 10*3/uL 1.8 - 7.5 10*3/uL [facility] Neutrophils/100 WBC (Bld) 57.6 % 38.0 - 82.0 % [facility] Nucleated RBC/100 WBC (Bld) [Ratio] 0.0 % [facility] Platelet mean volume (Bld) [Entitic vol] 8.4 fL Low 9.0 - 12.[address] [facility] Platelets (Bld) [#/Vol] 312 10*3/uL 140 - 440 10*3/uL [facility] RBC (Bld) [#/Vol] 2.90 10*6/uL Low 3.80 - 5.2 0 10*6/uL [facility] WBC (Bld) [#/Vol] 8.1 10*3/uL 3.6 - 10.7 10*3/uL [facility] CBC WITH AUTO DIFFERENTIALon 03-07-2024 Basophils (Bld) [#/Vol] 0.1 10*3/uL Normal 0.0-0.2 [facility] Comment on above: Performed By: #### L AB103, LAB17 #### Service Coordinator: STEVIE ELMORE ([id number]) [facility] ([facility]) [address] Basophils/100 WBC (Bld) 0.6 % Normal 0.0-2.0 [facility] Comment on above: Performed By: #### L AB103, LAB17 #### Service Coordinator: STEVIE ELMORE ([phone]) [facility] ([facility]) [address] Eosinophils (Bld) [#/Vol] 0.3 10*3/uL Normal 0.0-0.5 [facility] Comment on above: Performed By: #### L AB103, LAB17 #### Service Coordinator: STEVIE ELMORE ([id number]) [facility] ([facility]) [address] Eosinophils/100 WBC (Bld) 3.6 % Normal 0.0-6.0 [facility] Comment on above: Performed By: #### L AB103, LAB17 #### Service Coordinator: STEVIE ELMORE ([id number]) [facility] [address] Erythrocyte distribution width (RBC) [Ratio] 16.8 % High 11.5-15.0 [facility] Comment on above: Performed By: #### L AB103, LAB17 #### Service Coordinator: STEVIE ELMORE ([phone]) [facility] [address] Hematocrit (Bld) [Volume fraction] 26.5 % Low 35.0-47.0 [facility] Comment on above: Performed By: #### L AB103, LAB17 #### Service Coordinator: STEVIE ELMORE ([phone]) [facility] [address] Hemoglobin (Bld) [Mass/Vol] 8.4 g/dL Low 11.7-16.0 [facility] Comment on above: Performed By: #### L AB103, LAB17 #### Service Coordinator: STEVIE CATARINA ([id number]) [facility] [address] IMMATURE GRANS % 0.9 % Normal 0.0-2.0 [facility] Comment on above: Performed By: #### L AB103, LAB17 #### Service Coordinator: STEVIE CATARINA ([phone]) [facility] [address] IMMATURE GRANS ABSOLUTE 0.1 10*3/uL High <0.1 [facility] Comment on above: Performed By: #### L AB103, LAB17 #### Service Coordinator: STEVIE CATARINA ([phone]) [facility] ([facility]) [address] Lymphocytes (Bld) [#/Vol] 2.1 10*3/uL Normal 1.0-4.3 [facility] Comment on above: Performed By: #### L AB103, LAB17 #### Service Coordinator: STEVIE CATARINA ([phone]) [facility] [address] Lymphocytes/100 WBC (Bld) 26.3 % Normal 15.0-45.0 [facility] Comment on above: Performed By: #### L AB103, LAB17 #### Service Coordinator: STEVIE CATARINA ([phone]) [facility] ([facility]) [address] MCH (RBC) [Entitic mass] 29.0 pg Normal 26.0-34.0 [facility] Comment on above: Performed By: #### L AB103, LAB17 #### Service Coordinator: STEVIE PUTNAMPERICO ([id number]) [facility] ([facility]) [address] MCHC 31.7 % Normal 30.5-36.0 [facility] Comment on above: Performed By: #### L AB103, LAB17 #### Service Coordinator: STEVIE PUTNAMPERICO ([id number]) [facility] ([facility] [address] MCV (RBC) [Entitic vol] 91.4 fL Normal 77.0-99.0 [facility] Comment on above: Performed By: #### L AB103, LAB17 #### Service Coordinator: STEVIE PUTNAMPERICO ([phone]) [facility] ([facility]) [address] Monocytes (Bld) [#/Vol] 0.9 10*3/uL Normal 0.0-0.9 [facility] Comment on above: Performed By: #### L AB103, LAB17 #### Service Coordinator: STEVIE ELMORE ([phone]) [facility] [place] ([facility]) [address] Monocytes/100 WBC (Bld) 11.0 % Normal 5.0-13.0 [facility] Comment on above: Performed By: #### L AB103, LAB17 #### Service Coordinator: STEVIE ELMORE ([phone]) [facility] [place] ([facility]) [address] NEUTROPHILS ABSOLUTE 4.7 10*3/uL Normal 1.8-7.5 [facility] Comment on above: Performed By: #### L AB103, LAB17 #### Service Coordinator: STEVIE ELMORE ([phone]) [facility] [place] ([facility]) [address] Neutrophils/100 WBC (Bld) 57.6 % Normal 38.0-82.0 [facility] Comment on above: Performed By: #### L AB103, LAB17 #### Service Coordinator: STEVIE ELMORE ([id number]) [facility] [place] ([facility]) [address] NRBC 0.0 /100 WBCs Normal 0.0-2.0 [facility] Comment on above: Performed By: #### L AB103, LAB17 #### Service Coordinator: STEVIE ELMORE ([phone]) [facility] [place] ([facility]) [address] Platelet mean volume (Bld) [Entitic vol] 8.4 fL Low 9.0-12.7 [facility] Comment on above: Performed By: #### L AB103, LAB17 #### Service Coordinator: STEVIE ELMORE ([id number]) [facility] [place] ([facility]) [address] [place] [address] [place] Platelets (Bld) [#/Vol] 312 10*3/uL Normal 140-440 [facility] Comment on above: Performed By: #### L AB103, LAB17 #### Service Coordinator: STEVIE ELMORE ([id number]) [facility] [place] ([facility]) [address] RBC (Bld) [#/Vol] 2.90 10*6/uL Low 3.80-5.20 [facility] Comment on above: Performed By: #### L AB103, LAB17 #### Service Coordinator: STEVIE ELMORE ([id number]) [facility] ([facility]) [address] WBC (Bld) [#/Vol] 8.1 10*3/uL Normal 3.6-10.7 [facility] Comment on above: Performed By: #### L AB103, LAB17 #### Service Coordinator: STEVIE ELMORE ([phone]) [facility] ([facility]) [address] [place] [address] Laboratory - Chemistry and C hemistry - challengeon 03-07-2024 Glucose [Mass/Vol] 112 mg/dL High 70 - 100 mg/dL [facility] Glucose [Mass/Vol] 121 mg/dL High 70 - 100 mg/dL [facility] Glucose [Mass/Vol] 73 mg/dL 70 - 100 mg/dL [facility] Glucose [Mass/Vol] 86 mg/dL 70 - 100 mg/dL [facility] Glucose [Mass/Vol] 76 mg/dL 70 - 100 mg/dL [facility] No Panel Informationon 03-07 Interpretation and review of laboratory results Abnormal [facility] Performed by: [facility], [address] [place] [id number] CLIA ID: [id number] [facility] Interpretation and review of laboratory results Abnormal [facility] Performed by: [facility] [facility], [address] [place] [address] CLIA ID: [id number] [facility] Interpretation and review of laboratory results Normal [facility] Performed by: [facility], [address] [place] [address] CLIA ID: [id number] [facility] Interpretation and review of laboratory results Normal [facility] Performed by: [facility], [address] [facility] [address] CLIA ID: [id number] [facility] Interpretation and review of laboratory results Normal [facility] Performed by: [facility], [address] [facility] [address] CLIA ID: [id number] [facility] Radiology Study observation (narrative) [facility] Radiology Study observation (narrative) [facility] Radiology Study observation (narrative) [facility] Radiology Study observation (narrative) [facility] Radiology Study observation (narrative) [facility] Progress Noteon 03-07-2024 Progress Note Nutrition rescreen completed. Patient assigned a level 1 for nutrition care. Normal [facility] Progress Note OCCUPATIONAL THERAPY [facility] Name/MRN: Kimberly Patel ([id number]) Date: 03/07/2024 Chart review completed. Per previous documentation and confirmation from CM documentation, this patient is a retirement resident at a facility and does not require auth to return. This patient is a total assist at baseline for ADLs, mohamud lift for for transfers and non-ambulatory. Pt is at her functional baseline and has no skilled OT needs. Will complete current OT order at this time. Nilsa Vieira, OT Normal [facility] Progress Note PHYSICAL THERAPY [facility] Name/MRN: Kimberly Patel ([id number]) Date: 03/07/2024 Chart review completed. Per previous documentation and confirmation from CM documentation, this patient is a retirement resident at a facility and does not require auth to return. This patient is a total assist at baseline for ADLs, mohamud lift for for transfers and non-ambulatory. Pt is at her functional baseline and has no skilled PT needs. Will complete current PT order at this time. Jaky Hayes, PT Normal [facility] CARECOORDon 03-06-2024 [place]OORD Care Managment Initi al Assessment Date: 03/06/2024 Patient Name: Kimberly Patel : 1955 Patient Information Source of Information: (recent assessment 02/22/24) Name/Contact Information: ALEXANDRO COTE [phone] DAUGHTER Cognition/Language: Confused at baseline Permission given to speak with patient passenger service representative/caregive r as indicated: Yes Confirmation of Payer with patient/family: Yes Payer Name: MEDICARE AND [facility] MEDICAID [place]: No Confirmation of Primary Care Physician: Confirmed PCP Name: DR. QUICK Seen in last 2 years?: Yes Primary Caregiver: Other (Comment) If assistance needed, confirmed caregiver ready, willing and able to care for patient at discharge: Yes Confirmed with: STAFF AT [facility] Living Arrangements Current Residence: ([facility]) Number of Floors 1 Number of Entry Steps: (LEVEL ENTRY) Bed/Bath Levels: Both first floor Facility: Long-Term/[facility] Care Facility Name: [facility] Plan to Return: Yes Lives with: Other (Comment) (ECF) Support Systems: Children, Comments (Other) (ECF STAFF) Activities of Daily Living Ambulation: Total Care Bathing/Dressing: Total Care Elimination/Continence/ Toileting: Total Care Feeding: asst .set up Who Assists with Activities of Daily Living: ECF STAFF Instrumental Activities of Daily Living Prescription Coverage: Yes Pharmacy Used: [facility] STAFF Medication Management: Medication dispenser Who assists with medication securing and setup?: [facility] Transportation/Shopping : Assistance Provider Transportation/Shopping Assistance Provider Name: PAYOR PROVIDED TRANSPORT Transportation Mode: Payer provided transport service Needs Assistance with Transportation at Discharge: Yes Meal Preparation: Assistance Provider Meal Prep Assistance Provider Name: [facility] Laundry/Cleaning: Assistance Provider Laundry/Cleaning Assistance Provider Name: [facility] Finances/Bill Paying: Assistance Provider Finances/Bill Payer Assistance Provider Name: DAUGHTER Communication: Independent, Emergency Call System Types of Care Services/Equipment Utilized Care Services: Dialysis Type: NA Durable Medical Equipment: Mohamud Lift, Hospital Bed, oxygen, Patient's Goal/Discharge Plan Patient expects to be discharged to: RETURN TO [facility] Discharge Planning Actions: Continue to follow Patient's Choice Rights and [employer] and Collaborative Relationships Disclosed as Indicated for Post-Acute Care: NA Interdisciplinary Team Engagement: Social Work Referral for: Additional Information: Inpatient status from [facility] with altered mental status. Recent hospitalization for UTI and is receiving iv invanz at longterm via picc line. ID consulted. Repeat blood culture in am, bs ac and hs with ss coverage, daily labs, us of right upper ext negative for DVT. Did call and speak with nurse Jenna at [facility] patient is mohamud lift at facility, is able to feed herself, takes pills in applesauce, is diabetic and ss coverage. She believes patient requires oxygen at the facility. Patient is prison at facility and Jenna believes has been there for about a year. Tentative discharge plan is to return to facility when medically stable. Did speak with patient's daughter Alexandro and she is agreeable with patient returning to [facility] [place] when medically stable. . Vanessa Vu RN Normal [facility] COMPLETE URINALYSISon 2023 BACTERIA (#/HPF) IN URINE Few Abnormal Negative [facility] Comment on above: Order Comment: Do no t cancel, repeat ordered on purpose Straight cath Performed By: #### L [id number] #### Service Coordinator: STEVIE ELMORE ([phone]) [facility] ([facility]) [address] BILIRUBIN, TOTAL PRESENCE IN URINE Negative Normal Negative [facility] Comment on above: Order Comment: Do no t cancel, repeat ordered on purpose Straight cath Performed By: #### L [id number] #### Service Coordinator: STEVIE ELMORE ([id number]) [facility] ([facility]) [address] Clarity (U) Clear Normal Clear [facility] Comment on above: Order Comment: Do no t cancel, repeat ordered on purpose Straight cath Performed By: #### L [id number] #### Service Coordinator: STEVIE ELMORE ([id number]) [facility] ([facility]) [address] Color (U) Yellow Normal Lt. Yellow [facility] Comment on above: Order Comment: Do no t cancel, repeat ordered on purpose Straight cath Performed By: #### L [id number] #### Service Coordinator: STEVIE ELMORE ([id number]) [facility] [address] [place] [address] [place] GLUCOSE (MG/DL) IN URINE Normal Normal Normal (<70) [facility] Comment on above: Order Comment: Do no t cancel, repeat ordered on purpose Straight cath Performed By: #### L [id number] #### Service Coordinator: STEVIE ELMORE ([id number]) [facility] [address] HEMOGLOBIN PRESENCE IN URINE Negative Normal Negative [facility] Comment on above: Order Comment: Do no t cancel, repeat ordered on purpose Straight cath Performed By: #### L [id number] #### Service Coordinator: STEVIE ELMORE ([id number]) [facility] ([facility]) [address] Ketones Ql (U) Negative Normal Negative [facility] Comment on above: Order Comment: Do no t cancel, repeat ordered on purpose Straight cath Performed By: #### L [id number] #### Service Coordinator: STEVIE ELMORE ([id number]) [facility] ([facility]) [address] [place] [address] [place] LEUKOCYTE ESTERASE PRESENCE IN URINE BY TEST STRIP 75 Ha/uL Abnormal Negative [facility] Comment on above: Order Comment: Do no t cancel, repeat ordered on purpose Straight cath Performed By: #### L [id number] #### Service Coordinator: STEVIE ELMORE ([id number]) [facility] [address] [place] [address] [place] MUCUS (#/LPF) IN URINE SEDIMENT Few Normal Negative [facility] Comment on above: Order Comment: Do no t cancel, repeat ordered on purpose Straight cath Performed By: #### L [id number] #### Service Coordinator: STEVIE ELMORE ([id number]) [facility] [address] [place] [address] [place] NITRITE PRESENCE IN URINE Negative Normal Negative [facility] Comment on above: Order Comment: Do no t cancel, repeat ordered on purpose Straight cath Performed By: #### L [id number] #### Service Coordinator: STEVIE ELMORE ([id number]) [facility] ([facility]) [address] pH (U) 5.5 [pH] Normal 5.0-8.0 [facility] Comment on above: Order Comment: Do no t cancel, repeat ordered on purpose Straight cath Performed By: #### L [id number] #### Service Coordinator: STEVIE ELMORE ([id number]) [facility] ([facility]) [address] Protein (U) [Mass/Vol] 10 mg/dL Abnormal Negative [facility] Comment on above: Order Comment: Do no t cancel, repeat ordered on purpose Straight cath Performed By: #### L [id number] #### Service Coordinator: STEVIE ELMORE ([id number]) [facility] ([facility]) [address] [place] [address] RBC (#/HPF) IN URINE SEDIMENT 3-5 Abnormal 0-2 [facility] Comment on above: Order Comment: Do no t cancel, repeat ordered on purpose Straight cath Performed By: #### L [id number] #### Service Coordinator: STEVIE ELMORE ([id number]) [facility] ([facility]) [address] [place] [address] Specific gravity (U) [Rel density] 1.016 Normal 1.005-1.030 [facility] Comment on above: Order Comment: Do no t cancel, repeat ordered on purpose Straight cath Performed By: #### L [id number] #### Service Coordinator: STEVIE ELMORE ([id number]) [facility] ([facility]) [address] SQUAMOUS EPITHELIAL CELLS (#/HPF) IN URINE SEDIMENT 6-10 Abnormal 3-5 [facility] Comment on above: Order Comment: Do no t cancel, repeat ordered on purpose Straight cath Performed By: #### L [id number] #### Service Coordinator: STEVIEJOHN ELMORE ([id number]) [facility] ([facility]) [address] UROBILINOGEN (MG/DL) IN URINE Normal Normal Normal (0-1) [facility] Comment on above: Order Comment: Do no t cancel, repeat ordered on purpose Straight cath Performed By: #### L [id number] #### Service Coordinator: STEVIE ELMORE ([id number]) [facility] [address] WBC (LEUKOCYTE) (#/HPF) IN URINE SEDIMENT 26-50 Abnormal 0-5 [facility] Comment on above: Order Comment: Do no t cancel, repeat ordered on purpose Straight cath Performed By: #### L [id number] #### Service Coordinator: STEVIEJOHN ELMORE ([id number]) [facility] ([facility]) [address] [place] [address] CT HEAD WO IV CONTRASTon CT HEAD [...] Electronically Signed Date/Time: 03/06/2024 4:28 PM EDT [facility] CT Head WO contraston 2023 Limited study. No acute intracranial abnormalities or significant change from the prior study. Report Dictated on Electronically Signed By: Frankie Patel MD Electronically Signed Date/Time: 03/06/2024 4:28 PM EDT [facility] Patient Name: KIMBERLY PATEL : 1955 [facility] Man[facility]#: [id number] Exam Date/Time: 03/06/2024 16:10 Procedure: CT HEAD [...] mastoid effusions. Persistent sphenoid sinus opacification bilaterally. [facility] Frankie Patel M D - 03/06/2024 Patient Name: KIMBERLY PATEL : 1955 [facility] Manort#: [id number] Exam Date/Time: 03/06/2024 16:10 Procedure: CT HEAD [...] Electronically Signed Date/Time: 03/06/2024 4:[address] [facility] Radiology Study observation (narrative) [facility] iqra CT Head WO contrastOrdered B y: Frankie Patel on 03-06-2024 [facility] [employer] Work Phone: Consulton 03-06-[address] [facility] - Infectious Diseases Attending Consult [...] appeared non-toxic. She was recently admitted at [facility] from 02/20- 02/28/24 due to severe sepsis [...] Units SubCUTAneous TID WC Eboni Fletcher MD 1 Units at 03/06/24 [...] education: N (more content not included)... Normal [facility] Laboratory - Chemistry and C hemistry - challengeon 03-06-2024 Glucose [Mass/Vol] 165 mg/dL High 70 - 100 mg/dL [facility] Glucose [Mass/Vol] 126 mg/dL High 70 - 100 mg/dL [facility] Glucose [Mass/Vol] 147 mg/dL High 70 - 100 mg/dL [facility] Glucose [Mass/Vol] 160 mg/dL High 70 - 100 mg/dL [facility] Laboratory - Chemistry and C hemistry - challengeOrdered By: Sejal Gr on 03-06-2024 Glucose [Mass/Vol] 160 mg/dL [facility] No Panel Informationon 03-06 Interpretation and review of laboratory results Abnormal [facility] Performed by: [facility], [address] [place] [address] CLIA ID: [id number] [facility] Interpretation and review of laboratory results Abnormal [facility] Performed by: [facility], [address] [place] [address] CLIA ID: [id number] [facility] No evidence of acute deep vein [...] showed phasic, spontaneous and somewhat pulsatile flow. Generator Worker Details A carver scale, color Doppler [...] Interpretation and review of laboratory results Abnormal [facility] Performed by: [facility], [address] [place] [address] CLIA ID: [id number] [facility] Interpretation and review of laboratory results Abnormal [facility] Performed by: [facility], [address] [place] [address] CLIA ID: [id number] [facility] Radiology Study observation (narrative) [facility] Radiology Study observation (narrative) [facility] Radiology Study observation (narrative) [facility] Radiology Study observation (narrative) [facility] No Panel InformationOrdered By: Sejal Gr on 03-06-2024 Interpretation and review of laboratory results Normal [facility] Radiology Study observation (narrative) [facility] Urinalysis complete panel (U )Ordered By: Hema Fernandez on 03-06-2024 Bacteria LM.HPF (Urine sed) [#/Area] Few Abnormal Negative /HPF [facility] Bilirubin Ql (U) Negative Negative mg/dL [facility] Clarity (U) Clear Clear [facility] Color (U) Yellow Lt. Yellow [facility] Epithelial cells.squamous LM.HPF (Urine sed) [#/Area] 6-10 Abnormal [facility] h Glucose Ql (U) Normal Normal (<70) mg/dL [facility] Hemoglobin Ql (U) Negative Negative mg/dL [facility] Interpretation and review of laboratory results Abnormal [facility] Ketones (U) [Mass/Vol] Negative Negat rhonda mg/dL [facility] Leukocyte esterase Test strip Ql (U) 75 Abnormal Negative Ha/uL [facility] Mucus LM.HPF (Urine sed) [#/Area] Few Negative /LPF [facility] Nitrite Ql (U) Negative Negative [facility] th pH (U) 5.5 [pH] 5.0 - 8.[address] [facility] Protein (U) [Mass/Vol] 10 mg/dL Abnormal Negative [facility] RBC LM.HPF (Urine sed) [#/Area] 3-[address] [facility] Specific gravity (U) [Rel density] 1.016 1.005 - 1.030 [facility] Urobilinogen (U) [Mass/Vol] Normal Normal (0-1) mg/dL [facility] WBC LM.HPF (Urine sed) [#/Area] 26-50 Abnormal [facility] CBC W Auto Differential pane l (Bld)on 03-05-2024 Basophils (Bld) [#/Vol] 0.1 10*3/uL 0.0 - 0.2 10*3/uL [facility] Basophils/100 WBC (Bld) 0.7 % 0.0 - 2.0 % [facility] Eosinophils (Bld) [#/Vol] 0.3 10*3/uL 0.0 - 0.5 10*3/uL [facility] Eosinophils/100 WBC (Bld) 3.8 % 0.0 - 6.0 % [facility] Erythrocyte distribution width (RBC) [Ratio] 16.5 % High 11.5 - 15.0 % [facility] Hematocrit (Bld) [Volume fraction] 29.7 % Low 35.0 - 47.0 % [facility] Hemoglobin (Bld) [Mass/Vol] 9.3 g/dL Low 11.7 - 16.0 g/dL [facility] Immature granulocytes (Bld) [#/Vol] 0.2 10*3/uL High NINF - 0.1 10*3/uL [facility] Immature granulocytes/100 WBC (Bld) 2.2 % High 0.0 - 2.0 % [facility] Interpretation and review of laboratory results Abnormal [facility] Lymphocytes (Bld) [#/Vol] 1.7 10*3/uL 1.0 - 4.3 10*3/uL [facility] Lymphocytes/100 WBC (Bld) 20.0 % 15.0 - 45.0 % [facility] MCH (RBC) [Entitic mass] 29.2 pg 26.0 - 34.[address] [facility] MCHC (RBC) [Mass/Vol] 31.3 % 30.5 - 36.0 % [facility] MCV (RBC) [Entitic vol] 93.1 fL 77.0 - 99.0 fL [facility] Monocytes (Bld) [#/Vol] 0.7 10*3/uL 0.0 - 0.9 10*3/uL [facility] Monocytes/100 WBC (Bld) 8.1 % 5.0 - 13.0 % [facility] Neutrophils (Bld) [#/Vol] 5.7 10*3/uL 1.8 - 7.5 10*3/uL [facility] Neutrophils/100 WBC (Bld) 65.2 % 38.0 - 82.0 % [facility] Nucleated RBC/100 WBC (Bld) [Ratio] 0.0 % [facility] Platelet mean volume (Bld) [Entitic vol] 8.4 fL Low 9.0 - 12.[address] [facility] Platelets (Bld) [#/Vol] 342 10*3/uL 140 - 440 10*3/uL [facility] RBC (Bld) [#/Vol] 3.19 10*6/uL Low 3.80 - 5.2 0 10*6/uL [facility] WBC (Bld) [#/Vol] 8.7 10*3/uL 3.6 - 10.7 10*3/uL [facility] CBC WITH AUTO DIFFERENTIALon 03-05-2024 Basophils (Bld) [#/Vol] 0.1 10*3/uL Normal 0.0-0.2 [facility] Comment on above: Performed By: #### L AB103, LAB17 #### Service Coordinator: STEVIE ELMORE ([id number]) [facility] ([facility]) [address] Basophils/100 WBC (Bld) 0.7 % Normal 0.0-2.0 [facility] Comment on above: Performed By: #### L AB103, LAB17 #### Service Coordinator: STEVIE ELMORE ([id number]) [facility] ([facility]) [address] Eosinophils (Bld) [#/Vol] 0.3 10*3/uL Normal 0.0-0.5 [facility] Comment on above: Performed By: #### L AB103, LAB17 #### Service Coordinator: STEVIE ELMORE ([id number]) [facility] ([facility]) [address] Eosinophils/100 WBC (Bld) 3.8 % Normal 0.0-6.0 [facility] Comment on above: Performed By: #### L AB103, LAB17 #### Service Coordinator: STEVIE ELMORE ([id number]) [facility] ([facility]) [address] Erythrocyte distribution width (RBC) [Ratio] 16.5 % High 11.5-15.0 [facility] Comment on above: Performed By: #### L MARK, LAB17 #### Service Coordinator: STEVIE ELMORE ([id number]) [facility] [address] Hematocrit (Bld) [Volume fraction] 29.7 % Low 35.0-47.0 [facility] Comment on above: Performed By: #### L AB103, LAB17 #### Service Coordinator: STEVIE ELMORE ([id number]) [facility] [address] Hemoglobin (Bld) [Mass/Vol] 9.3 g/dL Low 11.7-16.0 [facility] Comment on above: Performed By: #### L AB, LAB17 #### Service Coordinator: STEVIE CATARINA ([id number]) [facility] ([facility]) [address] IMMATURE GRANS % 2.2 % High 0.0-2.0 [facility] Comment on above: Performed By: #### L AB103, LAB17 #### Service Coordinator: STEVIE MOYAFAHAD ([id number]) [facility] ([facility]) [address] IMMATURE GRANS ABSOLUTE 0.2 10*3/uL High <0.1 [facility] Comment on above: Performed By: #### L AB103, LAB17 #### Service Coordinator: STEVIEJOHN ELMORE ([id number]) [facility] [address] Lymphocytes (Bld) [#/Vol] 1.7 10*3/uL Normal 1.0-4.3 [facility] Comment on above: Performed By: #### L AB103, LAB17 #### Service Coordinator: STEVIE CATARINA ([id number]) [facility] ([facility]) [address] Lymphocytes/100 WBC (Bld) 20.0 % Normal 15.0-45.0 [facility] Comment on above: Performed By: #### L AB103, LAB17 #### Service Coordinator: STEVIE ELMORE ([id number]) [facility] ([facility]) [address] MCH (RBC) [Entitic mass] 29.2 pg Normal 26.0-34.0 [facility] Comment on above: Performed By: #### L AB103, LAB17 #### Service Coordinator: STEVIE CATARINA ([id number]) [facility] ([facility]) [address] MCHC 31.3 % Normal 30.5-36.0 [facility] Comment on above: Performed By: #### L AB103, LAB17 #### Service Coordinator: STEVIE CATARINA ([id number]) [facility] [address] MCV (RBC) [Entitic vol] 93.1 fL Normal 77.0-99.0 [facility] Comment on above: Performed By: #### L AB103, LAB17 #### Service Coordinator: STEVIE MOYAFAHAD ([id number]) [facility] [address] Monocytes (Bld) [#/Vol] 0.7 10*3/uL Normal 0.0-0.9 [facility] Comment on above: Performed By: #### L AB103, LAB17 #### Service Coordinator: STEVIE ELMORE ([id number]) [facility] ([facility]) [address] Monocytes/100 WBC (Bld) 8.1 % Normal 5.0-13.0 [facility] Comment on above: Performed By: #### L AB103, LAB17 #### Service Coordinator: STEVIE ELMORE ([id number]) [facility] [address] NEUTROPHILS ABSOLUTE 5.7 10*3/uL Normal 1.8-7.5 [facility] Comment on above: Performed By: #### L AB103, LAB17 #### Service Coordinator: STEVIE ELMORE ([id number]) [facility] [address] Neutrophils/100 WBC (Bld) 65.2 % Normal 38.0-82.0 [facility] Comment on above: Performed By: #### L AB103, LAB17 #### Service Coordinator: STEVIE ELMORE ([id number]) [facility] [address] NRBC 0.0 /100 WBCs Normal 0.0-2.0 [facility] Comment on above: Performed By: #### L AB103, LAB17 #### Service Coordinator: STEVIE ELMORE ([id number]) [facility] (SB[facility] [address] Platelet mean volume (Bld) [Entitic vol] 8.4 fL Low 9.0-12.7 [facility] Comment on above: Performed By: #### L AB103, LAB17 #### Service Coordinator: STEVIE ELMORE ([id number]) [facility] ([facility] [address] [place] [address] [place] Platelets (Bld) [#/Vol] 342 10*3/uL Normal 140-440 [facility] Comment on above: Performed By: #### L AB103, LAB17 #### Service Coordinator: STEVIE ELMORE ([id number]) [facility] [place] (SBHLAB) [address] RBC (Bld) [#/Vol] 3.19 10*6/uL Low 3.80-5.20 [facility] Comment on above: Performed By: #### L AB103, LAB17 #### Service Coordinator: STEVIE ELMORE ([id number]) [facility]ENTER[facility]ERPRESBYTER[facility] MED[facility] CENTER-RIO RANCHOAdenike (SBHLAB) [address] WBC (Bld) [#/Vol] 8.7 10*3/uL Normal 3.6-10.7 [facility] Comment on above: Performed By: #### L AB103, LAB17 #### Service Coordinator: STEVIE ELMORE ([id number]) [facility] (SBHLAB) [address] COMPLETE URINALYSISon 2023 BACTERIA (#/HPF) IN URINE Few Abnormal Negative [facility] Comment on above: Performed By: #### L AB103, LAB17 #### Service Coordinator: STEVIE ELMORE ([id number]) [facility] (SBHLAB) [address] BILIRUBIN, TOTAL PRESENCE IN URINE Negative Normal Negative [facility] Comment on above: Performed By: #### L AB103, LAB17 #### Service Coordinator: STEVIE ELMORE ([id number]) [facility] (SBHLAB) [address] Clarity (U) Turbid Abnormal Clear [facility] Comment on above: Performed By: #### L AB103, LAB17 #### Service Coordinator: STEVIE ELMORE ([id number]) [facility] (SBHLAB) [address] Color (U) Yellow Normal Lt. Yellow [facility] Comment on above: Performed By: #### L AB103, LAB17 #### Service Coordinator: STEVIE ELMORE ([id number]) [facility] (SBHLAB) [address] GLUCOSE (MG/DL) IN URINE Normal Normal Normal (<70) [facility] Comment on above: Performed By: #### L AB103, LAB17 #### Service Coordinator: STEVIE ELMORE ([id number]) [facility] (SBHLAB) [address] HEMOGLOBIN PRESENCE IN URINE Negative Normal Negative [facility] Comment on above: Performed By: #### L AB103, LAB17 #### Service Coordinator: STEVIE MOSQUEDACER ([id number]) [facility] (HLAB) [address] Ketones Ql (U) Negative Normal Negative [facility] Comment on above: Performed By: #### L AB103, LAB17 #### Service Coordinator: STEVIE ELMORE ([id number]) [facility] (HLAB) [address] LEUKOCYTE ESTERASE PRESENCE IN URINE BY TEST STRIP 500 Ha/uL Abnormal Negative [facility] Comment on above: Performed By: #### L AB103, LAB17 #### Service Coordinator: STEVIE ELMORE ([id number]) [facility] (SBHLAB) [address] [place] [address] [place] MUCUS (#/LPF) IN URINE SEDIMENT Few Normal Negative [facility] Comment on above: Performed By: #### L AB103, LAB17 #### Service Coordinator: STEVIE ELMORE ([id number]) [facility] (SBHLAB) [address] [place] [address] [place] NITRITE PRESENCE IN URINE Negative Normal Negative [facility] Comment on above: Performed By: #### L AB103, LAB17 #### Service Coordinator: STEVIE ELMORE ([id number]) [facility] (SBHLAB) [address] [place] [address] [place] pH (U) 5.0 [pH] Normal 5.0-8.0 [facility] Comment on above: Performed By: #### L AB103, LAB17 #### Service Coordinator: STEVIE PUTNAMPERICO ([id number]) [facility] ([facility] [address] Protein (U) [Mass/Vol] 20 mg/dL Abnormal Negative [facility] Comment on above: Performed By: #### L AB103, LAB17 #### Service Coordinator: STEVIE PUTNAMPERICO ([id number]) [facility] ([facility] [address] [place] [address] [place] RBC (#/HPF) IN URINE SEDIMENT 3-5 Abnormal 0-2 [facility] Comment on above: Performed By: #### L AB103, LAB17 #### Service Coordinator: STEVIE PUTNAMPERICO ([id number]) [facility] [address] Specific gravity (U) [Rel density] 1.020 Normal 1.005-1.030 [facility] Comment on above: Performed By: #### L AB103, LAB17 #### Service Coordinator: STEVIE ELMORE ([id number]) [facility] (SBHLAB) [address] [place] [address] [place] SQUAMOUS EPITHELIAL CELLS (#/HPF) IN URINE SEDIMENT 11-25 Abnormal 3-5 [facility] Comment on above: Performed By: #### L AB103, LAB17 #### Service Coordinator: STEVIE PUTNAMPERICO ([id number]) [facility] ([facility] [address] [place] [address] [place] UROBILINOGEN (MG/DL) IN URINE Normal Normal Normal (0-1) [facility] Comment on above: Performed By: #### L AB103, LAB17 #### Service Coordinator: STEVIE ELMORE ([id number]) [facility] (SBHLAB) [address] [place] [address] [place] WBC (LEUKOCYTE) (#/HPF) IN URINE SEDIMENT 51-100 Abnormal 0-5 [facility] Comment on above: Performed By: #### L AB103, LAB17 #### Service Coordinator: STEVIE ELMORE ([id number]) [facility]O RANCHOAdenike (SBHLAB) [address] COMPREHENSIVE METABOLIC PANE Wade 03-05-2024 Albumin [Mass/Vol] 3.1 g/dL Low 3.5-5.0 [facility] Comment on above: Performed By: #### L AB17 ####Service Coordinator: STEVIE ELMORE ([id number])[facility]BY[facility] (SBHLAB)[address] ALP [Catalytic activity/Vol] 95 U/L Normal 38-126 [facility] Comment on above: Performed By: #### L AB17 ####Service Coordinator: STEVIE ELMORE ([id number])[facility] (SB[facility])[address] ALT [Catalytic activity/Vol] 22 U/L Normal 0-34 [facility] Comment on above: Performed By: #### L AB17 ####Service Coordinator: STEVIE ELMORE ([id number])[facility] (SBHLAB)[address] Anion gap [Moles/Vol] 7 mmol/L Normal 3-13 [facility] Comment on above: Performed By: #### L AB17 ####Service Coordinator: STEVIE ELMORE ([id number])[facility] (SB[facility]AB)[address] AST [Catalytic activity/Vol] 21 U/L Normal 15-46 [facility] Comment on above: Performed By: #### L AB17 ####Service Coordinator: STEVIE ELMORE ([id number])[facility] (SBHLAB)[address] Bilirubin [Mass/Vol] 0.4 mg/dL Normal 0.2-1.3 [facility] Comment on above: Performed By: #### L AB17 ####Service Coordinator: STEVIE ELMORE ([id number])[facility]ENTERGiancarlo ALCOCERGURINDER (SBHLAB)[address] Calcium [Mass/Vol] 9.1 mg/dL Normal 8.4-10.4 [facility] Comment on above: Performed By: #### L AB17 ####Service Coordinator: STEVIE ELMORE ([id number])[facility] [place] (SBHLAB)[address] Chloride [Moles/Vol] 104 mmol/L Normal 98-107 [facility] Comment on above: Performed By: #### L AB17 ####Service Coordinator: STEVIE ELMORE ([id number])[facility] (SBHLAB)[address] CO2 [Moles/Vol] 25 mmol/L Normal 22-30 [facility] Comment on above: Performed By: #### L AB17 ####Service Coordinator: STEVIE ELMORE ([id number])[facility] (SBHLAB)[address] Creatinine [Mass/Vol] 1.23 mg/dL High 0.52-1.04 [facility] Comment on above: Performed By: #### L AB17 ####Service Coordinator: STEVIE ELMORE ([id number])[facility]ENTERGiancarlo BARBBREANAN (SBHLAB)155 [place] [address] [place] GLOMERULAR FILTRATION RATE ML/MIN/1.73 SQ M.PREDICTED 48.6 mL/min/1.73m*2 Low >60.0 [facility] Comment on above: Result Comment: Calc ulation based on the Chronic Kidney Disease Epidemiology Collaboration (CKD-EPI) equation refit without adjustment for race Performed By: #### L AB17 ####Service Coordinator: STEVIE ELMORE ([id number])[facility]ENTER[facility]iancarlo BARBBREANAN (SBHLAB)155 [place] [address] [place] Glucose [Mass/Vol] 144 mg/dL High 70-100 [facility] Comment on above: Performed By: #### L AB17 ####Service Coordinator: STEVIE ELMORE ([id number])[facility] (SBHLAB)[address] Potassium [Moles/Vol] 4.7 mmol/L Normal 3.5-5.1 [facility] Comment on above: Performed By: #### L AB17 ####Service Coordinator: STEVIE ELMORE ([id number])[facility] ([facility])[address] Protein [Mass/Vol] 5.7 g/dL Low 6.3-8.2 [facility] Comment on above: Performed By: #### L AB17 ####Service Coordinator: STEVIE ELMORE ([id number])[facility] (SBHLAB)[address] Sodium [Moles/Vol] 137 mmol/L Normal 135-145 [facility] Comment on above: Performed By: #### L AB17 ####Service Coordinator: STEVIE ELMORE ([id number])[facility] (SBHLAB)[address] Urea nitrogen [Mass/Vol] 24 mg/dL High 7-17 [facility] Comment on above: Performed By: #### L AB17 ####Service Coordinator: STEVIE ELMORE ([id number])[facility] (SBHLAB)[address] Comprehensive metabolic 1998 panelon 03-05-2024 Albumin [Mass/Vol] 3.1 g/dL Low 3.5 - 5.0 g/dL [facility] ALP [Catalytic activity/Vol] 95 U/L 38 - 126 U/L [facility] ALT [Catalytic activity/Vol] 22 U/L 0 - 34 U/L [facility] Anion gap [Moles/Vol] 7 mmol/L 3 - 13 mmol/L [facility] AST [Catalytic activity/Vol] 21 U/L 15 - 46 U/L [facility] Bilirubin [Mass/Vol] 0.4 mg/dL 0.2 - 1 .3 mg/dL [facility] Calcium [Mass/Vol] 9.1 mg/dL 8.4 - 10. 4 mg/dL [facility] Chloride [Moles/Vol] 104 mmol/L 98 - 10 7 mmol/L [facility] CO2 [Moles/Vol] 25 mmol/L 22 - 30 mmol/L [facility] Creatinine [Mass/Vol] 1.23 mg/dL High 0.52 - 1.04 mg/dL [facility] GFR/1.73 sq M.predicted MDRD (S/P/Bld) [Vol rate/Area] 48.6 mL/min/{1.73_m2} Low - PINF [facility] Comment on above: Calculation based on the Chronic Kidney Disease Epidemiology Collaboration (CKD-EPI) equation refit without adjustment for race Glucose [Mass/Vol] 144 mg/dL High 70 - 100 mg/dL [facility] Interpretation and review of laboratory results Abnormal [facility] Potassium [Moles/Vol] 4.7 mmol/L 3.5 - 5.1 mmol/L [facility] Protein [Mass/Vol] 5.7 g/dL Low 6.3 - 8.2 g/dL [facility] Sodium [Moles/Vol] 137 mmol/L 135 - 145 mmol/L 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 When EMS arrived, pt was A&O x4. During transport, pt had intermittent confusion in EMS. Pt was seen a week ago in [facility] and was being treated for UTI, which she has completed 1st ATB and is on 2nd one. Pt has PICC line in [facility], but entire arm is painful to touch. Normal [facility] ED Provider Noteon ED Provider Note [...] Diagnosis Date ? CHF (congestive heart failure) ([facility] ? COPD (chronic obstructive pulmonary disease) ([facility]) [facility] Diabetes mellitus ([facility]) SURGICAL HISTORY Past Surgical History: Procedure Laterality [...] (fourteen) days. ERGOCALCIFEROL (VITAMIN D-2) 1.25 MG (50057 UT) CAPSULE Take 1.25 mg by mouth [...] MG 24 (more content not included)... Normal [facility] LACTIC ACID WITH REFLEXon Lactate [Moles/Vol] 1.1 mmol/L Normal 0.7-2.0 [facility] Comment on above: Performed By: #### L [id number] ####Service Coordinator: STEVIE ELMORE ([id number])[facility] ([facility])[address] [place] [address] Laboratory - Chemistry and C hemistry - challengeon 03-05-2024 Lactate [Moles/Vol] 1.1 mmol/L 0.7 - 2. 0 mmol/L [facility] No Panel Informationon 03-05 Interpretation and review of laboratory results Normal [facility] URINE CULTUREon 03-05-2024 Bacteria identified Cx [...] Non-susceptible NO = No Interpretation ] Normal [facility] Comment on above: Performed By: #### L AB239 ####Service Coordinator: SILVIA FRENCH ([id number])[facility] (SACLAB)[address] [place] [address] Urinalysis complete panel (U )Ordered By: Eliz Amador on 03-05-2024 Bacteria LM.HPF (Urine sed) [#/Area] Few Abnormal Negative /HPF [facility] Bilirubin Ql (U) Negative Negative mg/dL [facility] Clarity (U) Turbid Abnormal Clear [facility] Color (U) Yellow Lt. Yellow [facility] Epithelial cells.squamous LM.HPF (Urine sed) [#/Area] 11-25 [facility] (U) Normal Normal (<70) mg/dL [facility] Hemoglobin Ql (U) Negative Negative mg/dL [facility] Interpretation and review of laboratory results Abnormal [facility] Ketones (U) [Mass/Vol] Negative Negat rhonda mg/dL [facility] Leukocyte esterase Test strip Ql (U) 500 Abnormal Negative Ha/uL [facility] Mucus LM.HPF (Urine sed) [#/Area] Few Negative /LPF [facility] Nitrite Ql (U) Negative Negative [facility] th pH (U) 5.0 [pH] 5.0 - 8.[address] [facility] Protein (U) [Mass/Vol] 20 mg/dL Abnormal Negative [facility] RBC LM.HPF (Urine sed) [#/Area] 3-[address] [facility] Specific gravity (U) [Rel density] 1.020 1.005 - 1.030 [facility] Urobilinogen (U) [Mass/Vol] Normal Normal (0-1) mg/dL [facility] WBC LM.HPF (Urine sed) [#/Area] 51-100 Abnormal [facility] XR Chest Single viewon 03-05 FINDINGS/IMPRESSION: The patient is somewhat rotated 1. Lines/Tubes/Devices/David dware: Right PICC with catheter tip overlying the SVC 2. Lungs: No consolidation or pulmonary edema. 3. Pleura: No pneumothorax or large pleural effusions. 4. Heart and mediastinum: Normal cardiomediastinal contours. Report Dictated on Electronically Signed By: Milad Kirkpatrick MD Electronically Signed Date/Time: 03/05/2024 8:25 PM [facility] Patient Name: KIMBERLY PATEL : 1955 [...] was obtained and reviewed. Special views: None. [facility] Milad Kirkpatrick MD - 03/05/2024 Patient [...] Electronically Signed Date/Time: 03/05/2024 8:[address] [facility] Radiology Study observation (narrative) [facility] alth XR Chest Single viewOrdered By: Milad Kirkpatrick on 03-05-2024 [facility] [employer] Work Phone: 36on 02-29-2024 36 Patient discharged t o [facility] on 02/28/24. OPAT faxed to facility. Called and spoke ti nurse Lozano to review orders, labs and follow up blood cultures that are needed. Normal [facility] 36on 02-28-2024 36 Patient remain hospitalized. Follow up blood cultures only awaiting discharge plans. Normal [facility] Bacteria identified Cx Nom ( Bld)on 02-28-2024 Interpretation and review of laboratory results Normal [facility] CARECOORDon 02-28-2024 [facility] Next Site of Care Admission Date: 02/21/2024 10:26 AM Patient Name: KIMBERLY PATEL Location: [address] CARDIAC PCU/[facility] [id number] A Date of : 1955 - Placement Information - Referral Type:Long-Term/SNF - Return Referral ID:[id number] Provider Name:Katia Lopez [facility] Address 1:[address] [facility] [address] Address 2: City:[place] Selection Factors:Returning to Facility State:[place] Normal [facility] Dc back to [facility] this evening at 6:00. [facility] messaged the facility with dc time. Discussed dc time with patients daughter Alexandro. She did have a question about patients iron and a chat message was sent to Dr. Mendoza. Ambulance form completed. Normal [facility] Discharge med list transmitted to return back to [facility] via [facility] [employer] per TCC request. Normal [facility] Sent ABX order to [facility] request. Await review and response regarding ability to accept. TCC notified. Normal [facility] CBC W Auto Differential pane l (Bld)Ordered By: Lindsay Mcintosh on 02-28-2024 Erythrocyte distribution width (RBC) [Ratio] 15.2 % High 11.5 - 15.0 % [facility] Hematocrit (Bld) [Volume fraction] 25.0 % Low 35.0 - 47.0 % [facility] Hemoglobin (Bld) [Mass/Vol] 7.6 g/dL Low 11.7 - 16.0 g/dL [facility] Interpretation and review of laboratory results Abnormal [facility] MCH (RBC) [Entitic mass] 28.7 pg 26.0 - 34.[address] [facility] MCHC (RBC) [Mass/Vol] 30.4 % Low 30.5 - 36.0 % [facility] MCV (RBC) [Entitic vol] 94.3 fL 77.0 - 99.[address] [facility] Platelet mean volume (Bld) [Entitic vol] 8.3 fL Low 9.0 - 12.[address] [facility] Platelets (Bld) [#/Vol] 293 10*3/uL 140 - 440 10*3/uL [facility] RBC (Bld) [#/Vol] 2.65 10*6/uL Low 3.80 - 5.2 0 10*6/uL [facility] WBC (Bld) [#/Vol] 7.7 10*3/uL 3.6 - 10.7 10*3/uL [facility] CBC WITH AUTO DIFFERENTIALon 02-28-2024 Erythrocyte distribution width (RBC) [Ratio] 15.2 % High 11.5-15.0 [facility] Comment on above: Performed By: #### L AB103, LAB17 #### Service Coordinator: STEVIE ELMORE ([id number]) [facility] (SBHLAB) [address] Hematocrit (Bld) [Volume fraction] 25.0 % Low 35.0-47.0 [facility] Comment on above: Performed By: #### L AB103, LAB17 #### Service Coordinator: STEVIE ELMORE ([id number]) [facility] (SBHLAB) [address] Hemoglobin (Bld) [Mass/Vol] 7.6 g/dL Low 11.7-16.0 [facility] Comment on above: Performed By: #### L AB103, LAB17 #### Service Coordinator: STEVIE ELMORE ([id number]) [facility] (HLAB) [address] MCH (RBC) [Entitic mass] 28.7 pg Normal 26.0-34.0 [facility] Comment on above: Performed By: #### L AB103, LAB17 #### Service Coordinator: STEVIE ELMORE ([id number]) [facility] (SBHLAB) [address] MCHC 30.4 % Low 30.5-36.0 [facility] Comment on above: Performed By: #### L AB103, LAB17 #### Service Coordinator: STEVIE ELMORE ([id number]) [facility] (SBHLAB) [address] MCV (RBC) [Entitic vol] 94.3 fL Normal 77.0-99.0 [facility] Comment on above: Performed By: #### L AB103, LAB17 #### Service Coordinator: STEVIE ELMORE ([id number]) [facility] [place] (SBHLAB) [address] Platelet mean volume (Bld) [Entitic vol] 8.3 fL Low 9.0-12.7 [facility] Comment on above: Performed By: #### L AB103, LAB17 #### Service Coordinator: STEVIE ELMORE ([id number]) [facility] (SBHLAB) [address] Platelets (Bld) [#/Vol] 293 10*3/uL Normal 140-440 [facility] Comment on above: Performed By: #### L AB103, LAB17 #### Service Coordinator: STEVIE ELMORE ([id number]) [facility] (SBHLAB) [address] RBC (Bld) [#/Vol] 2.65 10*6/uL Low 3.80-5.20 [facility] Comment on above: Performed By: #### L AB103, LAB17 #### Service Coordinator: STEVIE ELMORE ([id number]) [facility] (SBHLAB) [address] WBC (Bld) [#/Vol] 7.7 10*3/uL Normal 3.6-10.7 [facility] Comment on above: Performed By: #### L AB103, LAB17 #### Service Coordinator: STEVIE ELMORE ([id number]) [facility] [place] (SBHLAB) [address] COMPREHENSIVE METABOLIC PANE Wade 02-28-2024 Albumin [Mass/Vol] 2.6 g/dL Low 3.5-5.0 [facility] Comment on above: Performed By: #### L AB103, LAB17 #### Service Coordinator: STEVIE ELMORE ([id number]) [facility] [place] (SBHLAB) [address] [place] [address] [place] ALP [Catalytic activity/Vol] 62 U/L Normal 38-126 [facility] Comment on above: Performed By: #### L AB103, LAB17 #### Service Coordinator: STEVIE ELMORE ([id number]) [facility] [place] (SBHLAB) [address] [place] [address] [place] ALT [Catalytic activity/Vol] 20 U/L Normal 0-34 [facility] Comment on above: Performed By: #### L AB103, LAB17 #### Service Coordinator: STEVIE ELMORE ([id number]) [facility] (SB[facility]AB) [address] Anion gap [Moles/Vol] 2 mmol/L Low 3-13 [facility] Comment on above: Performed By: #### L AB103, LAB17 #### Service Coordinator: STEVIE ELMORE ([id number]) [facility] (SB[facility] [address] [place] [address] [place] AST [Catalytic activity/Vol] 23 U/L Normal 15-46 [facility] Comment on above: Performed By: #### L AB103, LAB17 #### Service Coordinator: STEVIE ELMORE ([id number]) [facility] (SBHLAB) [address] Bilirubin [Mass/Vol] 0.2 mg/dL Normal 0.2-1.3 [facility] Comment on above: Performed By: #### L AB103, LAB17 #### Service Coordinator: STEVIE ELMORE ([phone]) [facility] ([facility] [address] [place] [address] [place] Calcium [Mass/Vol] 8.1 mg/dL Low 8.4-10.4 [facility] Comment on above: Performed By: #### L AB103, LAB17 #### Service Coordinator: STEVIE ELMORE ([id number]) [facility] ([facility] [address] [place] [address] [place] Chloride [Moles/Vol] 108 mmol/L High 98-107 [facility] Comment on above: Performed By: #### L AB103, LAB17 #### Service Coordinator: STEVIE ELMORE ([id number]) [facility] (SBHLAB) [address] CO2 [Moles/Vol] 30 mmol/L Normal 22-30 [facility] Comment on above: Performed By: #### L AB103, LAB17 #### Service Coordinator: STEVIE ELMORE ([id number]) [facility] (SBHLAB) [address] Creatinine [Mass/Vol] 1.34 mg/dL High 0.52-1.04 [facility] Comment on above: Performed By: #### L AB103, LAB17 #### Service Coordinator: STEVIE ELMORE ([id number]) [facility] (HLAB) [address] GLOMERULAR FILTRATION RATE ML/MIN/1.73 SQ M.PREDICTED 43.8 mL/min/1.73m*2 Low >60.0 [facility] Comment on above: Result Comment: Calc ulation based on the Chronic Kidney Disease Epidemiology Collaboration (CKD-EPI) equation refit without adjustment for race Performed By: #### L AB103, LAB17 #### Service Coordinator: STEVIE ELMORE ([id number]) [facility] (SBHLAB) [address] Glucose [Mass/Vol] 120 mg/dL High 70-100 [facility] Comment on above: Performed By: #### L AB103, LAB17 #### Service Coordinator: STEVIE ELMORE ([phone]) [facility] (HLAB) [address] Potassium [Moles/Vol] 4.7 mmol/L Normal 3.5-5.1 [facility] Comment on above: Performed By: #### L AB103, LAB17 #### Service Coordinator: STEVIE ELMORE ([id number]) [facility] (SBHLAB) [address] Protein [Mass/Vol] 5.0 g/dL Low 6.3-8.2 [facility] Comment on above: Performed By: #### L AB103, LAB17 #### Service Coordinator: STEVIE ELMORE ([id number]) [facility] (SBHLAB) [address] Sodium [Moles/Vol] 139 mmol/L Normal 135-145 [facility] Comment on above: Performed By: #### L AB103, LAB17 #### Service Coordinator: STEVIE ELMORE ([id number]) [facility] (SBHLAB) [address] Urea nitrogen [Mass/Vol] 25 mg/dL High 7-17 [facility] Comment on above: Performed By: #### L AB103, LAB17 #### Service Coordinator: STEVIE ELMORE ([id number]) [facility] (SBHLAB) [address] Comprehensive metabolic 1998 panelon 02-28-2024 Albumin [Mass/Vol] 2.6 g/dL Low 3.5 - 5.0 g/dL [facility] ALP [Catalytic activity/Vol] 62 U/L 38 - 126 U/L [facility] ALT [Catalytic activity/Vol] 20 U/L 0 - 34 U/L [facility] Anion gap [Moles/Vol] 2 mmol/L Low 3 - 13 mmol/L [facility] AST [Catalytic activity/Vol] 23 U/L 15 - 46 U/L [facility] Bilirubin [Mass/Vol] 0.2 mg/dL 0.2 - 1 .3 mg/dL [facility] Calcium [Mass/Vol] 8.1 mg/dL Low 8.4 - 10. 4 mg/dL [facility] Chloride [Moles/Vol] 108 mmol/L High 98 - 10 7 mmol/L [facility] CO2 [Moles/Vol] 30 mmol/L 22 - 30 mmol/L [facility] Creatinine [Mass/Vol] 1.34 mg/dL High 0.52 - 1.04 mg/dL [facility] GFR/1.73 sq M.predicted MDRD (S/P/Bld) [Vol rate/Area] 43.8 mL/min/{1.73_m2} Low - PINF [facility] Glucose [Mass/Vol] 120 mg/dL High 70 - 100 mg/dL [facility] Interpretation and review of laboratory results Abnormal [facility] Potassium [Moles/Vol] 4.7 mmol/L 3.5 - 5.1 mmol/L [facility] Protein [Mass/Vol] 5.0 g/dL Low 6.3 - 8.2 g/dL [facility] Sodium [Moles/Vol] 139 mmol/L 135 - 145 mmol/L [facility] Urea nitrogen [Mass/Vol] 25 mg/dL High 7 - 17 mg/dL [facility] Laboratory - Chemistry and C hemistry - challengeon 02-28-2024 Glucose [Mass/Vol] 107 mg/dL High 70 - 100 mg/dL [facility] Glucose [Mass/Vol] 114 mg/dL High 70 - 100 mg/dL [facility] Glucose [Mass/Vol] 128 mg/dL High 70 - 100 mg/dL [facility] Laboratory - Hematology and Cell countson 02-28-2024 Anisocytosis Ql (Bld) Slight Abnormal (none) [facility] Band form neutrophils (Bld) [#/Vol] 0.3 10*3/uL High NINF - 0.0 10*3/uL [facility] Band form neutrophils/100 WBC (Bld) 4 % High NINF - 0 % [facility] Basophils (Bld) [#/Vol] 0.1 10*3/uL 0.0 - 0.2 10*3/uL [facility] Basophils/100 WBC (Bld) 1 % 0 - 2 % [facility] Eosinophils (Bld) [#/Vol] 0.2 10*3/uL 0.0 - 0.5 10*3/uL [facility] Eosinophils/100 WBC (Bld) 3 % 0 - 6 % [facility] Hypochromia Ql (Bld) Slight Abnormal (none) [facility] Lymphocytes (Bld) [#/Vol] 1.3 10*3/uL 1.0 - 4.3 10*3/uL [facility] Lymphocytes/100 WBC (Bld) 17 % 15 - 45 % [facility] Metamyelocytes (Bld) [#/Vol] 0.2 10*3/uL High NINF - 0.0 10*3/uL [facility] Metamyelocytes/100 WBC (Bld) 2 % High NINF - 0 % [facility] Monocytes (Bld) [#/Vol] 0.4 10*3/uL 0.0 - 0.9 10*3/uL [facility] Monocytes/100 WBC (Bld) 5 % 5 - 13 % [facility] Myelocytes (Bld) [#/Vol] 0.2 10*3/uL High NINF - 0.0 10*3/uL [facility] Myelocytes/100 WBC (Bld) 2 % High NINF - 0 % [facility] Neutrophils (Bld) [#/Vol] 5.3 10*3/uL 1.8 - 7.5 10*3/uL [facility] Polychromasia LM Ql (Bld) Slight Abnormal (none) [facility] RBC morphology finding Nom (Bld) abnormal [facility] Segmented neutrophils/100 WBC (Bld) 65 % 38 - 82 % [facility] Laboratory - Microbiology an d Antimicrobial susceptibilityon 02-28-2024 Bacteria identified Cx Nom (Bld) No growth at [address] [facility] MANUAL DIFFERENTIAL (CELLAVI JESSICA)on 02-28-2024 ANISOCYTOSIS PRESENCE IN BLOOD BY LIGHT MICROSCOPY Slight Abnormal (none) [facility] Comment on above: Performed By: #### L AB103, LAB17 #### Service Coordinator: STEVIE ELMORE ([id number]) [facility] [address] BAND NEUTROPHILS TOTAL PER COUNTED LEUKOCYTES BY MANUAL COUNT 4 Normal [facility] Comment on above: Performed By: #### L AB103, LAB17 #### Service Coordinator: STEVIE ELMORE ([id number]) [facility] (SBHLAB) [address] BANDS (10*3/UL) IN BLOOD-CELLAVISION 0.3 10*3/uL High <=0.0 [facility] Comment on above: Performed By: #### L AB103, LAB17 #### Service Coordinator: STEVIE ELMORE ([id number]) [facility] (SBHLAB) [address] [place] [address] [place] BASOPHILS (10*3/UL) IN BLOOD-CELLAVISION 0.1 10*3/uL Normal 0.0-0.2 [facility] Comment on above: Performed By: #### L AB103, LAB17 #### Service Coordinator: STEVIE EMLORE ([phone]) [facility] [place] (SB[facility]AB) [address] [place] [address] [place] BASOPHILS TOTAL PER COUNTED LEUKOCYTES BY MANUAL COUNT 1 Normal [facility] Comment on above: Performed By: #### L AB103, LAB17 #### Service Coordinator: STEVIE ELMORE ([phone]) [facility] [place] ([facility]) [address] [place] [address] [place] BASOPHILS/100 LEUKOCYTES IN BLOOD-CELLAVISION 1 % Normal 0-2 [facility] Comment on above: Performed By: #### L AB103, LAB17 #### Service Coordinator: STEVIE ELMORE ([phone]) [facility] [place] ([facility]) [address] [place] [address] [place] BLASTS TOTAL PER COUNTED LEUKOCYTES BY MANUAL COUNT Normal [facility] Comment on above: Performed By: #### L AB103, LAB17 #### Service Coordinator: STEVIE ELMORE ([id number]) [facility] [place] ([facility]) [address] [place] [address] [place] EOSINOPHILS (10*3/UL) IN BLOOD-CELLAVISION 0.2 10*3/uL Normal 0.0-0.[address] [facility] Comment on above: Performed By: #### L AB103, LAB17 #### Service Coordinator: STEVIEJOHN ELMORE ([id number]) [facility] (SBHLAB) [address] [place] [address] [place] EOSINOPHILS TOTAL PER COUNTED LEUKOCYTES BY MANUAL COUNT 3 High 0-1 [facility] Comment on above: Performed By: #### L AB103, LAB17 #### Service Coordinator: STEVIE ELMORE ([id number]) [facility] (SBHLAB) [address] [place] [address] [place] EOSINOPHILS/100 LEUKOCYTES IN BLOOD-CELLAVISION 3 % Normal 0-6 [facility] Comment on above: Performed By: #### L AB103, LAB17 #### Service Coordinator: STEVIE ELMORE ([id number]) [facility] ([facility] [address] [place] [address] [place] HYPOCHROMIA (PRESENCE) IN BLOOD BY LIGHT MICROSCOPY Slight Abnormal (none) [facility] Comment on above: Performed By: #### L AB103, LAB17 #### Service Coordinator: STEVIE PUTNAMPERICO ([id number]) [facility] (SBHLAB) [address] [place] [address] [place] LYMPHOCYTES (10*3/UL) IN BLOOD-CELLAVISION 1.3 10*3/uL Normal 1.0-4.3 [facility] Comment on above: Performed By: #### L AB103, LAB17 #### Service Coordinator: STEVIE ELMORE ([phone]) [facility] (SBHLAB) [address] [place] [address] [place] LYMPHOCYTES TOTAL PER COUNTED LEUKOCYTES BY MANUAL COUNT 17 Normal [facility] Comment on above: Performed By: #### L AB103, LAB17 #### Service Coordinator: STEVIE ELMORE ([id number]) [facility] (SBHLAB) [address] [place] [address] [place] LYMPHOCYTES/100 LEUKOCYTES IN BLOOD-CELLAVISION 17 % Normal 15-45 [facility] Comment on above: Performed By: #### L AB103, LAB17 #### Service Coordinator: STEVIE ELMORE ([phone]) [facility] (SBHLAB) [address] [place] [address] [place] METAMYELOCYTES (10*3/UL) IN BLOOD-CELLAVISION 0.2 10*3/uL High <=0.0 [facility] Comment on above: Performed By: #### L AB103, LAB17 #### Service Coordinator: STEVIE MOYAFAHAD ([phone]) [facility] [place] ([facility]) [address] [place] [address] [place] METAMYELOCYTES TOTAL PER COUNTED LEUKOCYTES BY MANUAL COUNT 2 Normal [facility] Comment on above: Performed By: #### L AB103, LAB17 #### Service Coordinator: STEVIE PUTNAMPERICO ([phone]) [facility] [place] ([facility]) [address] [place] [address] [place] METAMYELOCYTES/100 LEUKOCYTES IN BLOOD-CELLAVISION 2 % High <=0 [facility] Comment on above: Performed By: #### L AB103, LAB17 #### Service Coordinator: STEVIE MOYAFAHAD ([id number]) [facility] [place] ([facility]) [address] [place] [address] [place] MONOCYTES (10*3/UL) IN BLOOD-CELLAVISION 0.4 10*3/uL Normal 0.0-0.9 [facility] Comment on above: Performed By: #### L AB103, LAB17 #### Service Coordinator: STEVIE PUTNAMPERIOC ([phone]) [facility] [place] ([facility]) [address] [place] [address] [place] MONOCYTES TOTAL PER COUNTED LEUKOCYTES BY MANUAL COUNT 5 Normal [facility] Comment on above: Performed By: #### L AB103, LAB17 #### Service Coordinator: STEVIE PUTNAMPERICO ([id number]) [facility] [place] ([facility]) [address] [place] [address] [place] MONOCYTES/100 LEUKOCYTES IN BLOOD-JESSICA 5 % Normal 5-13 [facility] Comment on above: Performed By: #### L AB103, LAB17 #### Service Coordinator: STEVIE PUTNAMPERICO ([id number]) [facility] [place] ([facility]) [address] [place] [address] [place] MYELOCYTES (10*3/UL) IN BLOOD-CELLAVISION 0.2 10*3/uL High <=0.0 [facility] Comment on above: Performed By: #### L AB103, LAB17 #### Service Coordinator: STEVIE PUTNAMPERICO ([phone]) [facility] (SBHLAB) [address] [place] [address] [place] MYELOCYTES COUNTED BY MANUAL COUNT 2 Normal [facility] Comment on above: Performed By: #### L AB103, LAB17 #### Service Coordinator: STEVIE MOSQUEDACER ([phone]) [facility] ([facility]AB) [address] [place] [address] [place] MYELOCYTES/100 LEUKOCYTES IN BLOOD-CELLAVISION 2 % High <=0 [facility] Comment on above: Performed By: #### L AB103, LAB17 #### Service Coordinator: STEVIE PUTNAMPERICO ([phone]) [facility] ([facility]) [address] [place] [address] [place] NEUTROPHILS BAND FORM/100 LEUKOCYTES IN BLOOD-CELLAVISI 4 % High <=0 [facility] Comment on above: Performed By: #### L AB103, LAB17 #### Service Coordinator: STEVIE ELMORE ([id number]) [facility] [place] ([facility]) [address] [place] [address] [place] NEUTROPHILS TOTAL PER COUNTED LEUKOCYTES BY MANUAL COUNT 64 Normal [facility] Comment on above: Performed By: #### L AB103, LAB17 #### Service Coordinator: STEVIE ELMORE ([id number]) [facility] [place] ([facility]) [address] [place] [address] [place] POLYCHROMASIA IN BLOOD BY LIGHT MICROSCOPY Slight Abnormal (none) [facility] Comment on above: Performed By: #### L AB103, LAB17 #### Service Coordinator: STEVIE MOSQUEDACER ([phone]) [facility] ([facility]AB) [address] [place] [address] [place] PROMYELOCYTES TOTAL PER COUNTED LEUKOCYTES BY MANUAL COUNT Normal [facility] Comment on above: Performed By: #### L AB103, LAB17 #### Service Coordinator: STEVIE ELMORE ([id number]) [facility] ([facility]) [address] [place] [address] [place] RBC MORPHOLOGY IN BLOOD abnormal Normal [facility] Comment on above: Performed By: #### L AB103, LAB17 #### Service Coordinator: STEVIE ELMORE ([phone]) [facility] (SBHLAB) [address] [place] [address] [place] SEGMENTED NEUTROPHILS (10*3/UL) IN BLOOD-CELLAVISION 5.3 10*3/uL Normal 1.8-7.5 [facility] Comment on above: Performed By: #### L AB103, LAB17 #### Service Coordinator: STEVIE ELMORE ([id number]) [facility] (SBHLAB) [address] [place] [address] [place] SEGMENTED NEUTROPHILS/100 LEUKOCYTES-CE 65 % Normal 38-82 [facility] Comment on above: Performed By: #### L AB103, LAB17 #### Service Coordinator: STEVIE ELMORE ([phone]) [facility] ([facility]) [address] UNCLASSIFIED CELLS TOTAL PER COUNTED LEUKOCYTES BY MANUAL COUNT Normal [facility] Comment on above: Performed By: #### L AB103, LAB17 #### Service Coordinator: STEVIE ELMORE ([id number]) [facility] ([facility]) [address] VARIANT LYMPHOCYTES TOTAL PER COUNTED LEUKOCYTES BY MANUAL COUNT Normal [facility] Comment on above: Performed By: #### L AB103, LAB17 #### Service Coordinator: STEVIE ELMORE ([phone]) [facility] ([facility]AB) [address] [place] [address] [place] No Panel Informationon 02-27 Interpretation and review of laboratory results Abnormal [facility] Interpretation and review of laboratory results Abnormal [facility] Bands Manual 4 [facility] Basophils Manual 1 [facility] Eosinophils Manual 3 High 0 - 1 [facility] Interpretation and review of laboratory results Abnormal [facility] Lymphocytes Manual 17 [facility] Metamyelocytes Manual 2 [facility] Monocytes Manual 5 [facility] Myelocytes Manual 2 [facility]alth Neutrophils Manual 64 [facility] Interpretation and review of laboratory results Abnormal [facility] Radiology Study observation (narrative) [facility] Radiology Study observation (narrative) [facility] Radiology Study observation (narrative) [facility] Progress Noteon 02-28-2024 Progress Note Pt refused to allow REGULATORY ANALYST to obtain Accucheck glucose level. Nurse used am BMP glucose level of 120 for am coverage. Nurse advised pt that for lunch and dinner pt will need to have bgl levels checked prior to eating. Pt agreeable. Normal [facility] Bacteria identified Cx Nom ( U)Ordered By: Brady Tom on 02-27-2024 Interpretation and review of laboratory results Abnormal [facility] CBC W Auto Differential pane l (Bld)Ordered By: Brady Carey on 02-27-2024 Erythrocyte distribution width (RBC) [Ratio] 15.0 % 11.5 - 15.0 % [facility] Hematocrit (Bld) [Volume fraction] 27.3 % Low 35.0 - 47.0 % [facility] Hemoglobin (Bld) [Mass/Vol] 8.3 g/dL Low 11.7 - 16.0 g/dL [facility] Interpretation and review of laboratory results Abnormal [facility] MCH (RBC) [Entitic mass] 28.4 pg 26.0 - 34.[address] [facility] MCHC (RBC) [Mass/Vol] 30.4 % Low 30.5 - 36.0 % [facility] MCV (RBC) [Entitic vol] 93.5 fL 77.0 - 99.[address] [facility] Platelet mean volume (Bld) [Entitic vol] 8.4 fL Low 9.0 - 12.[address] [facility] Platelets (Bld) [#/Vol] 286 10*3/uL 140 - 440 10*3/uL [facility] RBC (Bld) [#/Vol] 2.92 10*6/uL Low 3.80 - 5.2 0 10*6/uL [facility] WBC (Bld) [#/Vol] 8.5 10*3/uL 3.6 - 10.7 10*3/uL [facility] CBC WITH AUTO DIFFERENTIALon 05-01-2024 Erythrocyte distribution width (RBC) [Ratio] 15.0 % Normal 11.5-15.0 [facility] Comment on above: Performed By: #### L AB103, LAB17 #### Service Coordinator: STEVIEJOHN ELMORE ([id number]) [facility] [place] ([facility]) [address] Hematocrit (Bld) [Volume fraction] 27.3 % Low 35.0-47.0 [facility] Comment on above: Performed By: #### L AB103, LAB17 #### Service Coordinator: STEVIE CATARINA ([phone]) [facility] (SBHLAB) [address] Hemoglobin (Bld) [Mass/Vol] 8.3 g/dL Low 11.7-16.0 [facility] Comment on above: Performed By: #### L AB103, LAB17 #### Service Coordinator: STEVIE CATARINA ([id number]) [facility] ([facility]) [address] MCH (RBC) [Entitic mass] 28.4 pg Normal 26.0-34.0 [facility] Comment on above: Performed By: #### L AB103, LAB17 #### Service Coordinator: STEVIE CATARINA ([id number]) [facility] (SB[facility]) [address] MCHC 30.4 % Low 30.5-36.0 [facility] Comment on above: Performed By: #### L AB103, LAB17 #### Service Coordinator: STEVIE MOYAFAHAD ([phone]) [facility] ([facility]) [address] MCV (RBC) [Entitic vol] 93.5 fL Normal 77.0-99.0 [facility] Comment on above: Performed By: #### L AB103, LAB17 #### Service Coordinator: STEVIE MOYAFAHAD ([id number]) [facility] ([facility]) [address] Platelet mean volume (Bld) [Entitic vol] 8.4 fL Low 9.0-12.7 [facility] Comment on above: Performed By: #### L AB103, LAB17 #### Service Coordinator: STEVIE ELMORE ([id number]) [facility] [place] ([facility]) [address] Platelets (Bld) [#/Vol] 286 10*3/uL Normal 140-440 [facility] Comment on above: Performed By: #### L AB103, LAB17 #### Service Coordinator: STEVIE ELMORE ([id number]) [facility] ([facility]) [address] RBC (Bld) [#/Vol] 2.92 10*6/uL Low 3.80-5.20 [facility] Comment on above: Performed By: #### L AB103, LAB17 #### Service Coordinator: STEVIE ELMORE ([id number]) [facility] ([facility]) [address] WBC (Bld) [#/Vol] 8.5 10*3/uL Normal 3.6-10.7 [facility] Comment on above: Performed By: #### L AB103, LAB17 #### Service Coordinator: STEVIE ELMORE ([phone]) [facility] ([facility]) [address] COMPREHENSIVE METABOLIC PANE Wade 02-27-2024 Albumin [Mass/Vol] 2.6 g/dL Low 3.5-5.0 [facility] Comment on above: Performed By: #### L AB103, LAB17 #### Service Coordinator: STEVIE ELMORE ([id number]) [facility] ([facility]) [address] ALP [Catalytic activity/Vol] 68 U/L Normal 38-126 [facility] Comment on above: Performed By: #### L AB103, LAB17 #### Service Coordinator: STEVIE ELMORE ([id number]) [facility] [place] ([facility]) [address] [place] [address] [place] ALT [Catalytic activity/Vol] 19 U/L Normal 0-34 [facility] Comment on above: Performed By: #### L AB103, LAB17 #### Service Coordinator: STEVIE ELMORE ([id number]) [facility] ([facility]) [address] Anion gap [Moles/Vol] 0 mmol/L Low 3-13 [facility] Comment on above: Performed By: #### L AB103, LAB17 #### Service Coordinator: STEVIE ELMORE ([id number]) [facility] ([facility] [address] AST [Catalytic activity/Vol] 20 U/L Normal 15-46 [facility] Comment on above: Performed By: #### L AB103, LAB17 #### Service Coordinator: STEVIE ELMORE ([id number]) [facility] [place] ([facility]) [address] Bilirubin [Mass/Vol] 0.2 mg/dL Normal 0.2-1.3 [facility] Comment on above: Performed By: #### L AB103, LAB17 #### Service Coordinator: STEVIE ELMORE ([phone]) [facility] [address] Calcium [Mass/Vol] 8.5 mg/dL Normal 8.4-10.4 [facility] Comment on above: Performed By: #### L AB103, LAB17 #### Service Coordinator: STEVIE ELMORE ([id number]) [facility] ([facility] [address] [place] [address] [place] Chloride [Moles/Vol] 106 mmol/L Normal 98-107 [facility] Comment on above: Performed By: #### L AB103, LAB17 #### Service Coordinator: STEVIE ELMORE ([id number]) [facility] ([facility]) [address] [place] [address] [place] CO2 [Moles/Vol] 31 mmol/L High 22-30 [facility] Comment on above: Performed By: #### L AB103, LAB17 #### Service Coordinator: STEVIE ELMORE ([id number]) [facility] ([facility]) [address] Creatinine [Mass/Vol] 1.30 mg/dL High 0.52-1.04 [facility] Comment on above: Performed By: #### L AB103, LAB17 #### Service Coordinator: STEVIE ELMORE ([phone]) [facility] ([facility]) [address] GLOMERULAR FILTRATION RATE ML/MIN/1.73 SQ M.PREDICTED 45.4 mL/min/1.73m*2 Low >60.0 [facility] Comment on above: Result Comment: Calc ulation based on the Chronic Kidney Disease Epidemiology Collaboration (CKD-EPI) equation refit without adjustment for race Performed By: #### L AB103, LAB17 #### Service Coordinator: STEVIE ELMORE ([id number]) [facility] ([facility]) [address] [place] [address] [place] Glucose [Mass/Vol] 137 mg/dL High 70-100 [facility] Comment on above: Performed By: #### L AB103, LAB17 #### Service Coordinator: STEVIE ELMORE ([id number]) [facility] ([facility]) [address] [place] [address] [place] Potassium [Moles/Vol] 4.7 mmol/L Normal 3.5-5.1 [facility] Comment on above: Performed By: #### L AB103, LAB17 #### Service Coordinator: STEVIE ELMORE ([id number]) [facility] ([facility]) [address] [place] [address] [place] Protein [Mass/Vol] 5.2 g/dL Low 6.3-8.2 [facility] Comment on above: Performed By: #### L AB103, LAB17 #### Service Coordinator: STEVIEJOHN ELMORE ([phone]) [facility] ([facility]) [address] Sodium [Moles/Vol] 137 mmol/L Normal 135-145 [facility] Comment on above: Performed By: #### L AB103, LAB17 #### Service Coordinator: STEVIE CATARINA ([phone]) [facility] ([facility]) [address] Urea nitrogen [Mass/Vol] 26 mg/dL High 7-17 [facility] Comment on above: Performed By: #### L AB103, LAB17 #### Service Coordinator: STEVIE ELMORE ([id number]) [facility] ([facility]) [address] Comprehensive metabolic 1998 panelon 02-27-2024 Albumin [Mass/Vol] 2.6 g/dL Low 3.5 - 5.0 g/dL [facility] ALP [Catalytic activity/Vol] 68 U/L 38 - 126 U/L [facility] ALT [Catalytic activity/Vol] 19 U/L 0 - 34 U/L [facility] Anion gap [Moles/Vol] 0 mmol/L Low 3 - 13 mmol/L [facility] AST [Catalytic activity/Vol] 20 U/L 15 - 46 U/L [facility] Bilirubin [Mass/Vol] 0.2 mg/dL 0.2 - 1 .3 mg/dL [facility] Calcium [Mass/Vol] 8.5 mg/dL 8.4 - 10. 4 mg/dL [facility] Chloride [Moles/Vol] 106 mmol/L 98 - 10 7 mmol/L [facility] CO2 [Moles/Vol] 31 mmol/L High 22 - 30 mmol/L [facility] Creatinine [Mass/Vol] 1.30 mg/dL High 0.52 - 1.04 mg/dL [facility] GFR/1.73 sq M.predicted MDRD (S/P/Bld) [Vol rate/Area] 45.4 mL/min/{1.73_m2} Low - PINF [facility] th Glucose [Mass/Vol] 137 mg/dL High 70 - 100 mg/dL [facility] Interpretation and review of laboratory results Abnormal [facility] Potassium [Moles/Vol] 4.7 mmol/L 3.5 - 5.1 mmol/L [facility] Protein [Mass/Vol] 5.2 g/dL Low 6.3 - 8.2 g/dL [facility] Sodium [Moles/Vol] 137 mmol/L 135 - 145 mmol/L [facility] Urea nitrogen [Mass/Vol] 26 mg/dL High 7 - 17 mg/dL [facility] - Chemistry and C hemistry - challengeon 02-27-2024 Glucose [Mass/Vol] 186 mg/dL High 70 - 100 mg/dL [facility] Glucose [Mass/Vol] 214 mg/dL High 70 - 100 mg/dL [facility] Glucose [Mass/Vol] 128 mg/dL High 70 - 100 mg/dL [facility] Glucose [Mass/Vol] 134 mg/dL High 70 - 100 mg/dL [facility] Glucose [Mass/Vol] 135 mg/dL High 70 - 100 mg/dL [facility] Laboratory - Hematology and Cell countson 02-27-2024 Band form neutrophils (Bld) [#/Vol] 0.2 10*3/uL High NINF - 0.0 10*3/uL [facility] Band form neutrophils/100 WBC (Bld) 2 % High NINF - 0 % [facility] Basophils (Bld) [#/Vol] 0.3 10*3/uL High 0.0 - 0.2 10*3/uL [facility] Basophils/100 WBC (Bld) 3 % High 0 - 2 % [facility] Eosinophils (Bld) [#/Vol] 0.2 10*3/uL 0.0 - 0.5 10*3/uL [facility] Eosinophils/100 WBC (Bld) 2 % 0 - 6 % [facility] Lymphocytes (Bld) [#/Vol] 1.7 10*3/uL 1.0 - 4.3 10*3/uL [facility] Lymphocytes/100 WBC (Bld) 20 % 15 - 45 % [facility] Monocytes (Bld) [#/Vol] 0.3 10*3/uL 0.0 - 0.9 10*3/uL [facility] Monocytes/100 WBC (Bld) 4 % Low 5 - 13 % S [facility] Myelocytes (Bld) [#/Vol] 0.3 10*3/uL High NINF - 0.0 10*3/uL [facility] Myelocytes/100 WBC (Bld) 3 % High NINF - 0 % [facility] Neutrophils (Bld) [#/Vol] 5.8 10*3/uL 1.8 - 7.5 10*3/uL [facility] Poikilocytosis LM Ql (Bld) Rare Abnormal (none) [facility] RBC morphology finding Nom (Bld) abnormal [facility] Segmented neutrophils/100 WBC (Bld) 66 % 38 - 82 % [facility] Stomatocytes LM Ql (Bld) Slight Abnormal (none) [facility] Laboratory - Microbiology an d Antimicrobial susceptibilityOrdered By: Brady Tom on 02-27-2024 Bacteria identified Cx Nom (U) Normal urogenital krys present [facility] Bacteria identified Cx Nom (U) 10,000-50,000 CFU/mL Jose albicans Abnormal [facility] MANUAL DIFFERENTIAL (CELLAVI JESSICA)on 02-27-2024 BAND NEUTROPHILS TOTAL PER COUNTED LEUKOCYTES BY MANUAL COUNT 2 Normal [facility] Comment on above: Performed By: #### L [id number], LAB17 #### Service Coordinator: STEVIE ELMORE ([id number]) [facility] ([facility]) [address] BANDS (10*3/UL) IN BLOOD-CELLAVISION 0.2 10*3/uL High <=0.0 [facility] Comment on above: Performed By: #### L AB103, LAB17 #### Service Coordinator: STEVIE ELMORE ([id number]) [facility] ([facility]) [address] [place] [address] [place] BASOPHILS (10*3/UL) IN BLOOD-CELLAVISION 0.3 10*3/uL High 0.0-0.2 [facility] Comment on above: Performed By: #### L AB103, LAB17 #### Service Coordinator: STEVIE ELMORE ([id number]) [facility] ([facility]) [address] [place] [address] [place] BASOPHILS TOTAL PER COUNTED LEUKOCYTES BY MANUAL COUNT 3 Normal [facility] Comment on above: Performed By: #### L AB103, LAB17 #### Service Coordinator: STEVIE ELMORE ([id number]) [facility] [place] ([facility] [address] [place] [address] [place] BASOPHILS/100 LEUKOCYTES IN BLOOD-CELLAVISION 3 % High 0-2 [facility] Comment on above: Performed By: #### L AB103, LAB17 #### Service Coordinator: STEVIE ELMORE ([id number]) [facility] [place] ([facility]) [address] [place] [address] [place] BLASTS TOTAL PER COUNTED LEUKOCYTES BY MANUAL COUNT Normal [facility] Comment on above: Performed By: #### L AB103, LAB17 #### Service Coordinator: STEVIE ELMORE ([id number]) [facility] [place] ([facility]) [address] [place] [address] [place] EOSINOPHILS (10*3/UL) IN BLOOD-CELLAVISION 0.2 10*3/uL Normal 0.0-0.[address] [facility] Comment on above: Performed By: #### L AB103, LAB17 #### Service Coordinator: STEVIE ELMORE ([id number]) [facility] [place] ([facility]) [address] [place] [address] [place] EOSINOPHILS TOTAL PER COUNTED LEUKOCYTES BY MANUAL COUNT 2 High 0-1 [facility] Comment on above: Performed By: #### L AB103, LAB17 #### Service Coordinator: STEVIE ELMORE ([phone]) [facility] [place] ([facility]) [address] [place] [address] [place] EOSINOPHILS/100 LEUKOCYTES IN BLOOD-CELLAVISION 2 % Normal 0-6 [facility] Comment on above: Performed By: #### L AB103, LAB17 #### Service Coordinator: STEVIE ELMORE ([id number]) [facility] [place] ([facility]) [address] [place] [address] [place] LYMPHOCYTES (10*3/UL) IN BLOOD-CELLAVISION 1.7 10*3/uL Normal 1.0-4.3 [facility] Comment on above: Performed By: #### L AB103, LAB17 #### Service Coordinator: STEVIE ELMORE ([phone]) [facility] [place] ([facility]) [address] [place] [address] [place] LYMPHOCYTES TOTAL PER COUNTED LEUKOCYTES BY MANUAL COUNT 20 Normal [facility] Comment on above: Performed By: #### L AB103, LAB17 #### Service Coordinator: STEVIE ELMORE ([id number]) [facility] [place] ([facility]) [address] [place] [address] [place] LYMPHOCYTES/100 LEUKOCYTES IN BLOOD-CELLAVISION 20 % Normal 15-45 [facility] Comment on above: Performed By: #### L AB103, LAB17 #### Service Coordinator: STEVIE ELMORE ([phone]) [facility] [place] ([facility]) [address] [place] [address] [place] METAMYELOCYTES TOTAL PER COUNTED LEUKOCYTES BY MANUAL COUNT Normal [facility] Comment on above: Performed By: #### L AB103, LAB17 #### Service Coordinator: STEVIE ELMORE ([id number]) [facility] [place] ([facility]) [address] [place] [address] [place] MONOCYTES (10*3/UL) IN BLOOD-CELLAVISION 0.3 10*3/uL Normal 0.0-0.9 [facility] Comment on above: Performed By: #### L AB103, LAB17 #### Service Coordinator: STVEIE ELMORE ([id number]) [facility] [place] ([facility]) [address] [place] [address] [place] MONOCYTES TOTAL PER COUNTED LEUKOCYTES BY MANUAL COUNT 4 Normal [facility] Comment on above: Performed By: #### L AB103, LAB17 #### Service Coordinator: STEVIE ELMORE ([id number]) [facility] [place] ([facility]) [address] [place] [address] [place] MONOCYTES/100 LEUKOCYTES IN BLOOD-JESSICA 4 % Low 5-13 [facility] Comment on above: Performed By: #### L AB103, LAB17 #### Service Coordinator: STEVIE CATARINA ([id number]) [facility] [place] ([facility]) [address] [place] [address] [place] MYELOCYTES (10*3/UL) IN BLOOD-CELLAVISION 0.3 10*3/uL High <=0.0 [facility] Comment on above: Performed By: #### L AB103, LAB17 #### Service Coordinator: STEVIE CATARINA ([id number]) [facility] [place] ([facility]) [address] [place] [address] [place] MYELOCYTES COUNTED BY MANUAL COUNT 3 Normal [facility] Comment on above: Performed By: #### L AB103, LAB17 #### Service Coordinator: STEVIE MOYAFAHAD ([id number]) [facility] [place] ([facility]) [address] [place] [address] [place] MYELOCYTES/100 LEUKOCYTES IN BLOOD-CELLAVISION 3 % High <=0 [facility] Comment on above: Performed By: #### L AB103, LAB17 #### Service Coordinator: STEVIE MOYAFAHAD ([id number]) [facility] [place] ([facility]) [address] [place] [address] [place] NEUTROPHILS BAND FORM/100 LEUKOCYTES IN BLOOD-CELLAVISI 2 % High <=0 [facility] Comment on above: Performed By: #### L AB103, LAB17 #### Service Coordinator: STEVIE MOYAFAHAD ([id number]) [facility] [place] ([facility]) [address] [place] [address] [place] NEUTROPHILS TOTAL PER COUNTED LEUKOCYTES BY MANUAL COUNT 67 Normal [facility] Comment on above: Performed By: #### L AB103, LAB17 #### Service Coordinator: STEVIE MOYAFAHAD ([id number]) [facility] [place] ([facility]) [address] [place] [address] [place] POIKILOCYTOSIS (PRESENCE) IN BLOOD BY LIGHT MICROSCOPY Rare Abnormal (none) [facility] Comment on above: Performed By: #### L AB103, LAB17 #### Service Coordinator: STEVIE ELMORE ([id number]) [facility] ([facility]) [address] [place] [address] [place] PROMYELOCYTES TOTAL PER COUNTED LEUKOCYTES BY MANUAL COUNT Normal [facility] Comment on above: Performed By: #### L AB103, LAB17 #### Service Coordinator: STEVIE ELMORE ([id number]) [facility] ([facility] [address] [place] [address] [place] RBC MORPHOLOGY IN BLOOD abnormal Normal [facility] Comment on above: Performed By: #### L AB103, LAB17 #### Service Coordinator: STEVIE ELMORE ([id number]) [facility] ([facility] [address] [place] [address] [place] SEGMENTED NEUTROPHILS (10*3/UL) IN BLOOD-CELLAVISION 5.8 10*3/uL Normal 1.8-7.5 [facility] Comment on above: Performed By: #### L AB103, LAB17 #### Service Coordinator: STEVIE ELMORE ([id number]) [facility] ([facility] [address] [place] [address] [place] SEGMENTED NEUTROPHILS/100 LEUKOCYTES-CE 66 % Normal 38-82 [facility] Comment on above: Performed By: #### L AB103, LAB17 #### Service Coordinator: STEVIE ELMORE ([id number]) [facility] [place] ([facility]) [address] [place] [address] [place] STOMATOCYTES IN BLOOD BY LIGHT MICROSCOPY Slight Abnormal (none) [facility] Comment on above: Performed By: #### L AB103, LAB17 #### Service Coordinator: STEVIE ELMORE ([id number]) [facility] [place] ([facility]) [address] [place] [address] [place] UNCLASSIFIED CELLS TOTAL PER COUNTED LEUKOCYTES BY MANUAL COUNT Normal [facility] Comment on above: Performed By: #### L AB103, LAB17 #### Service Coordinator: STEVIE ELMORE ([id number]) [facility] [place] ([facility]) [address] VARIANT LYMPHOCYTES TOTAL PER COUNTED LEUKOCYTES BY MANUAL COUNT Normal [facility] Comment on above: Performed By: #### L AB103, LAB17 #### Service Coordinator: STEVIE ELMORE ([id number]) [facility] ([facility]) [address] No Panel Informationon 02-26 Interpretation and review of laboratory results Abnormal [facility] Interpretation and review of laboratory results Abnormal [facility] Interpretation and review of laboratory results Abnormal [facility] Interpretation and review of laboratory results Abnormal [facility] RADIOLOGY SYSTEM [facility] Interpretation and review of laboratory results Abnormal [facility] Bands Manual 2 [facility] Basophils Manual 3 [facility] Eosinophils Manual 2 High 0 - 1 [facility] Interpretation and review of laboratory results Abnormal [facility] Lymphocytes Manual 20 [facility] Monocytes Manual 4 [facility] Myelocytes Manual 3 [facility] H ealth Neutrophils Manual 67 [facility] Radiology Study observation (narrative) [facility] Radiology Study observation (narrative[facility] Radiology Study observation (narrative) [facility] Radiology Study observation (narrative) [facility] Radiology Study observation (narrative) [facility] No Panel InformationOrdered By: Tadeo Dasilva on 02-27-2024 [facility] Work Phone: Progress Noteon 02-27-2024 Progress Note [phone]: Please [facility] ([phone]) for patient care issues. [phone]: Please page [facility] [place] night Hospitalist for any issues. Subjective: Admit [...] 1.267 02/22/2024 Lab Results Component Value Date [id number] 02/22/2024 No results found for: VITD25 Objective: BP 149/84 (BP Location: Right arm, Patient Position: Sitting) Pulse 81 Temp 36.6 ?C (97.8 ?F) (Oral) Resp 16 Ht 5' 5" (1.651 m) Wt 249 lb 6.4 oz [...] mcg, Oral, Daily, Marisa Su APRN - FINANCIAL DEVELOPER, 1,000 mcg at 02/27/24 0917 dextrose 5 % infusion, 100 mL/hr, IntraVENous, PRN, Shmuel Trevino MD dextrose 50 % solution 12.5 g, 12.5 g, IntraVENous, PRN, Shmuel Trevino MD enoxaparin (Lovenox) syringe 40 mg, 40 mg, SubCUTAneous, Daily, Shmuel Trevino MD, 40 mg at 02/27/24 0907 ertapenem (INVanz) 1,000 mg i (more content not included)... Normal [facility] Progress Note [facility] Geriatric Medicine Inpatient Consult Service Admission [...] change in mental status. She resides at [facility]. Family reported has had several hospitalizations with similar symptoms particularly when associated UTI and bloodstream infection. Medical record shows several ED visits for change in mental status and hallucinations over past 6-9 months. History of bipolar disorder that has been under control. Reviewed all notes -PICC placed today for retirement antibiotics -dietary - no malnutrition -ID - [...] (97.8 ?F) (Oral) Resp 16 Ht 5' 5" (1.651 m) Wt 249 lb 6.4 oz [...] mcg, Oral, Daily, Marisa Su APRN - FINANCIAL DEVELOPER, 1,000 mcg at 02/27/24 0917 dextrose 5 [...] Lai MD, 40 mg at 02/27/24 0906 glucagon (human recombinant) injection 1 mg, 1 [...] hr tablet (more content not included)... Normal [facility] Progress Note Nutrition Assessment Type and Reason [...] muscle mass loss Fluid Accumulation: Mild Extremities Psychological Operations Specialist Strength: Not Performed Nutrition Assessment: chart reviewed. Severe sepsis improved. Acute metabolic encephalopathy due to UTI- improving, ESBL- E coli bacteremia. PICC line planned. ID and Geriatrics following. 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 Pt sleeping on visit -awakened easily reports good appetite tolerating meals. Discharge planning to ECF -pt reports possible discharge today Estimated Daily Nutrient Needs: Energy Requirements Based On: Kcal/kg Weight Used for Energy Requirements: Eugene Weight for Energy Calculation (kg): 57 kg Total Energy Requirements (kcals/day): 1425- 1710 (25-30 kcal/kg IBW) Weight Used for Protein Requirements: Eugene Weight in Kg Used for Protein Requirements: [...] Ordered Anthropometric Measures: Height: 165.1 cm (5' 5") Current Body Weight: 107 kg (235 lb 3.7 oz) Weight Source: Bed Scale Admission Body Weight: 133 kg (294 lb) (stated) Usual Body Weight: 114 kg (251 lb) (07/09/2023) % Weight Change (Calculated): -6.3 Eugene Body Weight (lbs) (Calculated): 125 lbs Eugene Body Weight (Kg) (Calculated): 57 kg % Eugene Body Weight (Calculated): 188.2 % BMI (kg/m2) [...] Continue current diet Debbie Mccoy RD Contact: *[phone] or via Secure Chat [facility] CBC W Auto Differential pane l (Bld)Ordered By: Alvaro Ivan on 02-26-2024 Erythrocyte distribution width (RBC) [Ratio] 14.7 % 11.5 - 15.0 % [facility] Hematocrit (Bld) [Volume fraction] 26.7 % Low 35.0 - 47.0 % [facility] Hemoglobin (Bld) [Mass/Vol] 8.2 g/dL Low 11.7 - 16.0 g/dL [facility] MCH (RBC) [Entitic mass] 28.5 pg 26.0 - 34.[address] [facility] MCHC (RBC) [Mass/Vol] 30.7 % 30.5 - 36.0 % [facility] MCV (RBC) [Entitic vol] 92.7 fL 77.0 - 99.[address] [facility] Platelet mean volume (Bld) [Entitic vol] 8.5 fL Low 9.0 - 12.[address] [facility] Platelets (Bld) [#/Vol] 244 10*3/uL 140 - 440 10*3/uL [facility] RBC (Bld) [#/Vol] 2.88 10*6/uL Low 3.80 - 5.2 0 10*6/uL [facility] WBC (Bld) [#/Vol] 7.5 10*3/uL 3.6 - 10.7 10*3/uL [facility] CBC WITH AUTO DIFFERENTIALon 02-26-2024 Erythrocyte distribution width (RBC) [Ratio] 14.7 % Normal 11.5-15.0 [facility] Comment on above: Performed By: #### L [id number], [id number] ####Service Coordinator: STEVIE ELMORE ([id number])[facility] ([facility])[address] [place] [address] Hematocrit (Bld) [Volume fraction] 26.7 % Low 35.0-47.0 [facility] Comment on above: Performed By: #### L [id number], [id number] ####Service Coordinator: STEVIE ELMORE ([id number])[facility] ([facility])[address] Hemoglobin (Bld) [Mass/Vol] 8.2 g/dL Low 11.7-16.0 [facility] Comment on above: Performed By: #### L [id number], [id number] ####Service Coordinator: STEVIE ELMORE ([id number])[facility] ([facility])[address] MCH (RBC) [Entitic mass] 28.5 pg Normal 26.0-34.0 [facility] Comment on above: Performed By: #### L [id number], [id number] ####Service Coordinator: STEVIE ELMORE ([id number])[facility] ([facility])[address] MCHC 30.7 % Normal 30.5-36.0 [facility] Comment on above: Performed By: #### L [id number], [id number] ####Service Coordinator: STEVIE ELMORE ([id number])[facility] ([facility])[address] MCV (RBC) [Entitic vol] 92.7 fL Normal 77.0-99.0 [facility] Comment on above: Performed By: #### L [id number], [id number] ####Service Coordinator: STEVIE ELMORE ([id number])[facility] ([facility])[address] Platelet mean volume (Bld) [Entitic vol] 8.5 fL Low 9.0-12.7 [facility] Comment on above: Performed By: #### L [id number], [id number] ####Service Coordinator: STEVIE ELMORE ([id number])[facility] ([facility])[address] [place] [address] [place] Platelets (Bld) [#/Vol] 244 10*3/uL Normal 140-440 [facility] Comment on above: Performed By: #### L [id number], [id number] ####Service Coordinator: STEVIE ELMORE ([id number])[facility] ([facility])[address] [place] [address] [place] RBC (Bld) [#/Vol] 2.88 10*6/uL Low 3.80-5.20 [facility] Comment on above: Performed By: #### L [id number], [id number] ####Service Coordinator: STEVIE ELMORE ([id number])[facility] [place] ([facility])[address] WBC (Bld) [#/Vol] 7.5 10*3/uL Normal 3.6-10.7 [facility] Comment on above: Performed By: #### L [id number], [id number] ####Service Coordinator: STEVIE ELMORE ([id number])[facility] [place] ([facility])[address] COMPREHENSIVE METABOLIC PANE Wade 02-26-2024 Albumin [Mass/Vol] 2.5 g/dL Low 3.5-5.0 [facility] Comment on above: Performed By: #### L AB103, LAB17 #### Service Coordinator: STEVIE ELMORE ([id number]) [facility] [place] ([facility]) [address] ALP [Catalytic activity/Vol] 75 U/L Normal 38-126 [facility] Comment on above: Performed By: #### L AB103, LAB17 #### Service Coordinator: STEVIE ELMORE ([id number]) [facility] [place] ([facility]) [address] ALT [Catalytic activity/Vol] 19 U/L Normal 0-34 [facility] Comment on above: Performed By: #### L AB103, LAB17 #### Service Coordinator: STEVIE ELMORE ([id number]) [facility] [place] ([facility] [address] Anion gap [Moles/Vol] 0 mmol/L Low 3-13 [facility] Comment on above: Performed By: #### L AB103, LAB17 #### Service Coordinator: STEVIE ELMORE ([id number]) [facility] [place] ([facility]) [address] [place] [address] [place] AST [Catalytic activity/Vol] 18 U/L Normal 15-46 [facility] Comment on above: Performed By: #### L AB103, LAB17 #### Service Coordinator: STEVIE ELMORE ([id number]) [facility] ([facility]) [address] [place] [address] [place] Bilirubin [Mass/Vol] 0.2 mg/dL Normal 0.2-1.3 [facility] Comment on above: Performed By: #### L AB103, LAB17 #### Service Coordinator: STEVIE ELMORE ([id number]) [facility] ([facility]) [address] Calcium [Mass/Vol] 8.5 mg/dL Normal 8.4-10.4 [facility] Comment on above: Performed By: #### L AB103, LAB17 #### Service Coordinator: STEVIE ELMORE ([id number]) [facility] ([facility]) [address] [place] [address] [place] Chloride [Moles/Vol] 107 mmol/L Normal 98-107 [facility] Comment on above: Performed By: #### L AB103, LAB17 #### Service Coordinator: STEVIE ELMORE ([id number]) [facility] ([facility]) [address] [place] [address] [place] CO2 [Moles/Vol] 30 mmol/L Normal 22-30 [facility] Comment on above: Performed By: #### L AB103, LAB17 #### Service Coordinator: STEVIE ELMORE ([id number]) [facility] [address] [place] [address] [place] Creatinine [Mass/Vol] 1.23 mg/dL High 0.52-1.04 [facility] Comment on above: Performed By: #### L AB103, LAB17 #### Service Coordinator: STEVIE ELMORE ([id number]) [facility] ([facility] [address] GLOMERULAR FILTRATION RATE ML/MIN/1.73 SQ M.PREDICTED 48.6 mL/min/1.73m*2 Low >60.0 [facility] Comment on above: Result Comment: Calc ulation based on the Chronic Kidney Disease Epidemiology Collaboration (CKD-EPI) equation refit without adjustment for race Performed By: #### L AB103, LAB17 #### Service Coordinator: STEVIE ELMORE ([id number]) [facility] ([facility]) [address] Glucose [Mass/Vol] 113 mg/dL High 70-100 [facility] Comment on above: Performed By: #### L AB103, LAB17 #### Service Coordinator: STEVIE ELMORE ([id number]) [facility] ([facility]) [address] Potassium [Moles/Vol] 4.2 mmol/L Normal 3.5-5.1 [facility] Comment on above: Performed By: #### L AB103, LAB17 #### Service Coordinator: STEVIE ELMORE ([id number]) [facility] ([facility]) [address] Protein [Mass/Vol] 4.9 g/dL Low 6.3-8.2 [facility] Comment on above: Performed By: #### L AB103, LAB17 #### Service Coordinator: STEVIE ELMORE ([id number]) [facility] ([facility]) [address] Sodium [Moles/Vol] 136 mmol/L Normal 135-145 [facility] Comment on above: Performed By: #### L AB103, LAB17 #### Service Coordinator: STEVIE ELMORE ([id number]) [facility] ([facility]) [address] [place] [address] [place] Urea nitrogen [Mass/Vol] 23 mg/dL High 7-17 [facility] Comment on above: Performed By: #### L AB103, LAB17 #### Service Coordinator: STEVIE ELMORE ([id number]) [facility] ([facility]) [address] Comprehensive metabolic 1998 panelon 02-26-2024 Albumin [Mass/Vol] 2.5 g/dL Low 3.5 - 5.0 g/dL [facility] ALP [Catalytic activity/Vol] 75 U/L 38 - 126 U/L [facility] ALT [Catalytic activity/Vol] 19 U/L 0 - 34 U/L [facility] Anion gap [Moles/Vol] 0 mmol/L Low 3 - 13 mmol/L [facility] AST [Catalytic activity/Vol] 18 U/L 15 - 46 U/L [facility] Bilirubin [Mass/Vol] 0.2 mg/dL 0.2 - 1 .3 mg/dL [facility] Calcium [Mass/Vol] 8.5 mg/dL 8.4 - 10. 4 mg/dL [facility] Chloride [Moles/Vol] 107 mmol/L 98 - 10 7 mmol/L [facility] CO2 [Moles/Vol] 30 mmol/L 22 - 30 mmol/L [facility] Creatinine [Mass/Vol] 1.23 mg/dL High 0.52 - 1.04 mg/dL [facility] GFR/1.73 sq M.predicted MDRD (S/P/Bld) [Vol rate/Area] 48.6 mL/min/{1.73_m2} Low - PINF [facility] th Glucose [Mass/Vol] 113 mg/dL High 70 - 100 mg/dL [facility] Interpretation and review of laboratory results Abnormal [facility] Potassium [Moles/Vol] 4.2 mmol/L 3.5 - 5.1 mmol/L [facility] Protein [Mass/Vol] 4.9 g/dL Low 6.3 - 8.2 g/dL [facility] Sodium [Moles/Vol] 136 mmol/L 135 - 145 mmol/L [facility] Urea nitrogen [Mass/Vol] 23 mg/dL High 7 - 17 mg/dL [facility] Laboratory - Chemistry and C hemistry - challengeon 02-26-2024 Glucose [Mass/Vol] 207 mg/dL High 70 - 100 mg/dL [facility] Glucose [Mass/Vol] 186 mg/dL High 70 - 100 mg/dL [facility] Glucose [Mass/Vol] 97 mg/dL 70 - 100 mg/dL [facility] Glucose [Mass/Vol] 103 mg/dL High 70 - 100 mg/dL [facility] MANUAL DIFFERENTIALon 2023 ANISOCYTOSIS PRESENCE IN BLOOD BY LIGHT MICROSCOPY Slight Abnormal (none) [facility] Comment on above: Performed By: #### L [id number], [id number] ####Service Coordinator: STEVIE ELMORE ([phone])[facility] [place] ([facility])[address] BASOPHILIC STIPPLING PRESENCE IN BLOOD BY LIGHT MICROSCOPY Rare Abnormal (none) [facility] Comment on above: Performed By: #### L [id number], [id number] ####Service Coordinator: STEVIE ELMORE ([id number])[facility] ([facility] CELLS COUNTED TOTAL (#) IN BLOOD 100 Normal [facility] Comment on above: Performed By: #### L [id number], [id number] ####Service Coordinator: STEVIE ELMORE ([phone])[facility] ([facility])[address] DIFFERENTIAL METHOD Manual differential performed Normal [facility] Comment on above: Performed By: #### L [id number], [id number] ####Service Coordinator: STEVIE ELMORE ([phone])[facility] EOSINOPHILS (10*3/UL) IN BLOOD BY MANUAL COUNT 0.1 10*3/uL Normal 0.0-0.5 [facility] Comment on above: Performed By: #### L [id number], [id number] ####Service Coordinator: STEVIE ELMORE ([phone])[facility] [place] ([facility])[address] EOSINOPHILS TOTAL PER COUNTED LEUKOCYTES BY MANUAL COUNT 1 Normal 0-1 [facility] Comment on above: Performed By: #### L [id number], [id number] ####Service Coordinator: STEVIE ELMORE ([phone])[facility] [place] (SBHLAB)155 [place] [address] [place] EOSINOPHILS/100 LEUKOCYTES IN BLOOD BY MANUAL COUNT 1 % Normal 0-6 [facility] Comment on above: Performed By: #### L [id number], [id number] ####Service Coordinator: STEVIE ELMORE ([phone])[facility] [place] ([facility])[address] HYPOCHROMIA (PRESENCE) IN BLOOD BY LIGHT MICROSCOPY Slight Abnormal (none) [facility] Comment on above: Performed By: #### L [id number], [id number] ####Service Coordinator: STEVIE ELMORE ([id number])[facility] [place] ([facility])[address] LEUKOCYTE MORPHOLOGY FINDING IN BLOOD Normal Normal [facility] Comment on above: Performed By: #### L [id number], [id number] ####Service Coordinator: STEVIE ELMORE ([phone])[facility] [place] ([facility])155 [place] [address] [place] LEUKOCYTES (10*3/UL) NUCLEATED ERYTHROCYTE ADJUST 7.5 10*3/uL Normal 3.6-10.7 [facility] Comment on above: Performed By: #### L [id number], [id number] ####Service Coordinator: STEVIE ELMORE ([phone])[facility] [place] ([facility])155 [place] [address] [place] LYMPHOCYTES (10*3/UL) IN BLOOD BY MANUAL COUNT 2.0 10*3/uL Normal 1.0-4.3 [facility] Comment on above: Performed By: #### L [id number], [id number] ####Service Coordinator: STEVIE ELMORE ([phone])[facility] [place] ([facility])155 [place] [address] [place] LYMPHOCYTES TOTAL PER COUNTED LEUKOCYTES BY MANUAL COUNT 26 Normal [facility] Comment on above: Performed By: #### L [id number], [id number] ####Service Coordinator: STEVIE ELMORE ([phone])[facility] [place] (SBHLAB)155 [place] [address] [place] LYMPHOCYTES/100 LEUKOCYTES IN BLOOD BY MANUAL COUNT 26 % Normal 15-45 [facility] Comment on above: Performed By: #### L [id number], [id number] ####Service Coordinator: STEVIE PUTNAMPERICO ([phone])[facility] [place] ([facility])155 [place] [address] [place] MONOCYTES (10*3/UL) IN BLOOD BY MANUAL COUNT 0.8 10*3/uL Normal 0.0-0.9 [facility] Comment on above: Performed By: #### L [id number], [id number] ####Service Coordinator: STEVIE MOSQUEDACER ([phone])[facility] [place] ([facility])155 [place] [address] [place] MONOCYTES TOTAL PER COUNTED LEUKOCYTES BY MANUAL COUNT 10 Normal [facility] Comment on above: Performed By: #### L [id number], [id number] ####Service Coordinator: STEVIE PUTANMPERICO ([phone])[facility] [place] ([facility])155 [place] [address] [place] MONOCYTES/100 LEUKOCYTES IN BLOOD BY MANUAL COUNT 10 % Normal 5-13 [facility] Comment on above: Performed By: #### L [id number], [id number] ####Service Coordinator: STEVIE PUTNAMPERICO ([phone])[facility] [place] ([facility])155 [place] [address] [place] MYELOCYTES (10*3/UL) IN BLOOD BY MANUAL COUNT 0.2 10*3/uL High <=0.0 [facility] Comment on above: Performed By: #### L [id number], [id number] ####Service Coordinator: STEVIE ELMORE ([id number])[facility] [place] (SBHLAB)[address] [place] [address] [place] MYELOCYTES COUNTED BY MANUAL COUNT 3 Normal [facility] Comment on above: Performed By: #### L [id number], [id number] ####Service Coordinator: STEVIE ELMORE ([phone])[facility] [place] ([facility])[address] [place] [address] [place] MYELOCYTES/100 LEUKOCYTES IN BLOOD BY MANUAL COUNT 3 % High <=0 [facility] Comment on above: Performed By: #### L [id number], [id number] ####Service Coordinator: STEVIE PUTNAMPERICO ([id number])[facility] [place] ([facility])155 [place] [address] [place] NEUTROPHILS (SEGS+BANDS) (10*3/UL) BY MANUAL COUNT 4.4 10*3/uL Normal 1.8-7.0 [facility] Comment on above: Performed By: #### L [id number], [id number] ####Service Coordinator: STEVIE ELMORE ([id number])[facility] [place] ([facility])[address] NEUTROPHILS TOTAL PER COUNTED LEUKOCYTES BY MANUAL COUNT 59 Normal [facility] Comment on above: Performed By: #### L [id number], [id number] ####Service Coordinator: STEVIE ELMORE ([id number])[facility] [place] ([facility])[address] [place] [address] [place] OVALOCYTES PRESENCE IN BLOOD BY LIGHT MICROSCOPY Slight Abnormal (none) [facility] Comment on above: Performed By: #### L [id number], [id number] ####Service Coordinator: STEVIE ELMORE ([phone])[facility] [place] ([facility])[address] [place] [address] [place] PLATELET MORPHOLOGY IN BLOOD Normal Normal [facility] Comment on above: Performed By: #### L [id number], [id number] ####Service Coordinator: STEVIE ELMORE ([id number])[facility] [place] ([facility])[address] [place] [address] [place] POIKILOCYTOSIS (PRESENCE) IN BLOOD BY LIGHT MICROSCOPY Slight Abnormal (none) [facility] Comment on above: Performed By: #### L [id number], [id number] ####Service Coordinator: STEVIE ELMORE ([id number])[facility] [place] (SBHLAB)155 [place] [address] [place] PROMYELOCYTES (10*3/UL) IN BLOOD BY MANUAL COUNT 0.1 10*3/uL High <=0.0 [facility] Comment on above: Performed By: #### L [id number], [id number] ####Service Coordinator: STEVIE ELMORE ([phone])[facility] [place] (SBHLAB)[address] [place] [address] [place] PROMYELOCYTES TOTAL PER COUNTED LEUKOCYTES BY MANUAL COUNT 1 Normal [facility] Comment on above: Performed By: #### L [id number], [id number] ####Service Coordinator: STEVIE ELMORE ([phone])[facility] [place] (SBHLAB)[address] [place] [address] [place] PROMYELOCYTES/100 LEUKOCYTES BY MANUAL COUNT 1 % High <=0 [facility] Comment on above: Performed By: #### L [id number], [id number] ####Service Coordinator: STEVIE ELMORE ([id number])[facility] [place] ([facility])[address] [place] [address] [place] SEGEMENTED NEUTROPHILS/100 LEUKOCYTES BY MANUAL COUNT 59 % Normal 38-82 [facility] Comment on above: Performed By: #### L SZ2287, [id number] ####Service Coordinator: STEVIE ELMORE ([phone])[facility] [place] (SBHLAB)[address] [place] [address] [place] STOMATOCYTES IN BLOOD BY LIGHT MICROSCOPY Slight Abnormal (none) [facility] Comment on above: Performed By: #### L [id number], [id number] ####Service Coordinator: STEVIE ELMORE ([phone])[facility] [place] (SBHLAB)[address] [place] [address] [place] TARGET CELLS IN BLOOD BY LIGHT MICROSCOPY Rare Abnormal (none) [facility] Comment on above: Performed By: #### L [id number], [id number] ####Service Coordinator: STEVIE ELMORE ([phone])[facility] [place] (SBHLAB)[address] Manual differential performe d Ql (Bld)on 02-26-2024 Anisocytosis Ql (Bld) Slight Abnormal (none) [facility] Basophilic stippling LM Ql (Bld) Rare Abnormal (none) [facility] Cells Counted Total (Bld) [#] 100 {cells} [facility] Differential Method Manual differential performed [facility] Eosinophils (Bld) [#/Vol] 0.1 10*3/uL 0.0 - 0.5 10*3/uL [facility] Eosinophils Manual 1 0 - 1 [facility] Eosinophils/100 WBC (Bld) 1 % 0 - 6 % [facility] Hypochromia Ql (Bld) Slight Abnormal (none) [facility] Leukocyte morphology finding Nom (Bld) Normal [facility] Lymphocytes (Bld) [#/Vol] 2.0 10*3/uL 1.0 - 4.3 10*3/uL [facility] Lymphocytes Manual 26 [facility] Lymphocytes/100 WBC (Bld) 26 % 15 - 45 % [facility] Monocytes (Bld) [#/Vol] 0.8 10*3/uL 0.0 - 0.9 10*3/uL [facility] Monocytes Manual 10 [facility] Monocytes/100 WBC (Bld) 10 % 5 - 13 % [facility] Myelocytes (Bld) [#/Vol] 0.2 10*3/uL High NINF - 0.0 10*3/uL [facility] Myelocytes Manual 3 [facility] Myelocytes/100 WBC (Bld) 3 % High NINF - 0 % [facility] Neutrophils (Bld) [#/Vol] 4.4 10*3/uL 1.8 - 7.0 10*3/uL [facility] Neutrophils Manual 59 [facility] Ovalocytes LM Ql (Bld) Slight Abnormal (none) [facility] Platelet morphology finding Nom (Bld) Normal [facility] Poikilocytosis LM Ql (Bld) Slight Abnormal (none) [facility] Promyelocytes (Bld) [#/Vol] 0.1 10*3/uL High NINF - 0.0 10*3/uL [facility] Promyelocytes Manual 1 [facility] Promyelocytes/100 WBC (Bld) 1 % High NINF - 0 % [facility] Segmented neutrophils/100 WBC (Bld) 59 % 38 - 82 % [facility] Stomatocytes LM Ql (Bld) Slight Abnormal (none) [facility] Target cells LM Ql (Bld) Rare Abnormal (none) [facility] WBC corrected for nucl RBC (Bld) [#/Vol] 7.5 10*3/uL 3.6 - 10.7 10*3/uL [facility] No Panel Informationon 02-25 Interpretation and review of laboratory results Abnormal [facility] Interpretation and review of laboratory results Abnormal [facility] Interpretation and review of laboratory results Normal [facility] Interpretation and review of laboratory results Abnormal [facility] Radiology Study observation (narrative) [facility] Study observation (narrative) [facility] Radiology Study observation (narrative) [facility] Rad[facility] Study observation (narrative) [facility] No Panel InformationOrdered By: Alvaro Ivan on 02-26-2024 Interpretation and review of laboratory results Abnormal [facility] Progress Noteon 02-26-2024 Progress Note [phone]: Please pa [facility] ([phone]) for patient care issues. [phone]: Please page [facility] Hospitalist for any issues. Subjective: Admit Date: [...] Net 660 ml LABS: CBC: Recent Labs 02/24/24 0220 02/25/24 0225 02/26/24 0210 WBC 8.3 6.5 7.5 RBC 3.03* 2.88* 2.88* HGB 8.6* 8.1* 8.2* HCT 27.7* 26.5* 26.7* MCV 91.4 92.0 92.7 RDW 15.1* 14.8 14.7 PLT 196 210 244 BMP: Recent Labs 02/24/2421902/25/2422402/26/24208 NA 135 135 136 K 3.4* 4.0 4.2 CL 102 106 107 CO2 30 28 30 BUN 33* 28* 23* CREATININE 1.42* 1.25* 1.23* GLUCOSE 105* 149* 113* CALCIUM 8.5 8.3* 8.5 ANIONGAP 3 1* 0* LIVER PROFILE: Recent Labs 02/24/2421902/25/2422402/26/24208 AST 27 18 18 ALT 24 20 19 BILITOT 0.3 0.2 0.2 ALKPHOS 66 63 75 PROT 5.2* 4.7* 4.9* PT/INR: No results for input(s): "PROTIME", "INR" in the last 72 hours. CARDIAC ENZYMES: No results for input(s): "TROPONINI" in the last 72 hours. Procalcitonin: No results found for: PROCAL Objective: Vitals: BP 152/74 (BP Location: Right arm, Patient Position: Sitting) Pulse 81 Temp 36.8 ?C (98.2 ?F) (Temporal) Resp 17 Ht 5' 5" (1.651 m) Wt 249 lb 6.4 oz [...] [employer]ro [employer] Relation: Daughter Preferred language: [employer] Manager needed? No Advance Directive: Full Code Discharge planning: TBD Ann Reed MD Division of Hospitalist Medicine Inpatient Medical Services/[facility] [place] [place] Normal [facility] Bacteria identified Cx Nom ( U)Ordered By: Janelle Morton on 02-25-2024 Interpretation and review of laboratory results Abnormal [facility] CBC W Auto Differential pane l (Bld)Ordered By: Shmuel Izaguirre on 02-25-2024 Basophils (Bld) [#/Vol] 0.0 10*3/uL 0.0 - 0.2 10*3/uL [facility] Basophils/100 WBC (Bld) 0.5 % 0.0 - 2.0 % [facility] Eosinophils (Bld) [#/Vol] 0.2 10*3/uL 0.0 - 0.5 10*3/uL [facility] Eosinophils/100 WBC (Bld) 2.8 % 0.0 - 6.0 % [facility] Erythrocyte distribution width (RBC) [Ratio] 14.8 % 11.5 - 15.0 % [facility] Hematocrit (Bld) [Volume fraction] 26.5 % Low 35.0 - 47.0 % [facility] Hemoglobin (Bld) [Mass/Vol] 8.1 g/dL Low 11.7 - 16.0 g/dL [facility] Immature granulocytes (Bld) [#/Vol] 0.3 10*3/uL High NINF - 0.1 10*3/uL [facility] Immature granulocytes/100 WBC (Bld) 4.5 % High 0.0 - 2.0 % [facility] Interpretation and review of laboratory results Abnormal [facility] Lymphocytes (Bld) [#/Vol] 2.0 10*3/uL 1.0 - 4.3 10*3/uL [facility] Lymphocytes/100 WBC (Bld) 30.8 % 15.0 - 45.0 % [facility] MCH (RBC) [Entitic mass] 28.1 pg 26.0 - 34.[address] [facility] MCHC (RBC) [Mass/Vol] 30.6 % 30.5 - 36.0 % [facility] MCV (RBC) [Entitic vol] 92.0 fL 77.0 - 99.0 fL [facility] Monocytes (Bld) [#/Vol] 0.7 10*3/uL 0.0 - 0.9 10*3/uL [facility] Monocytes/100 WBC (Bld) 10.0 % 5.0 - 13.0 % [facility] Neutrophils (Bld) [#/Vol] 3.3 10*3/uL 1.8 - 7.5 10*3/uL [facility] Neutrophils/100 WBC (Bld) 51.4 % 38.0 - 82.0 % [facility] Nucleated RBC/100 WBC (Bld) [Ratio] 0.0 % [facility] Platelet mean volume (Bld) [Entitic vol] 8.6 fL Low 9.0 - 12.[address] [facility] Platelets (Bld) [#/Vol] 210 10*3/uL 140 - 440 10*3/uL [facility] RBC (Bld) [#/Vol] 2.88 10*6/uL Low 3.80 - 5.2 0 10*6/uL [facility] WBC (Bld) [#/Vol] 6.5 10*3/uL 3.6 - 10.7 10*3/uL [facility] CBC WITH AUTO DIFFERENTIALon 02-25-2024 Basophils (Bld) [#/Vol] 0.0 10*3/uL Normal 0.0-0.2 [facility] Comment on above: Performed By: #### L [id number], LAB17 #### Service Coordinator: STEVIE ELMORE ([phone]) [facility] (SBHLAB) [address] Basophils/100 WBC (Bld) 0.5 % Normal 0.0-2.0 [facility] Comment on above: Performed By: #### L AB103, LAB17 #### Service Coordinator: STEVIE ELMORE ([phone]) [facility] (SBHLAB) [address] Eosinophils (Bld) [#/Vol] 0.2 10*3/uL Normal 0.0-0.5 [facility] Comment on above: Performed By: #### L AB103, LAB17 #### Service Coordinator: STEVIE ELMORE ([id number]) [facility] (SBHLAB) [address] Eosinophils/100 WBC (Bld) 2.8 % Normal 0.0-6.0 [facility] Comment on above: Performed By: #### L AB103, LAB17 #### Service Coordinator: STEVIE ELMORE ([phone]) [facility] [address] Erythrocyte distribution width (RBC) [Ratio] 14.8 % Normal 11.5-15.0 [facility] Comment on above: Performed By: #### L AB103, LAB17 #### Service Coordinator: STEVIE ELMORE ([phone]) [facility] [address] Hematocrit (Bld) [Volume fraction] 26.5 % Low 35.0-47.0 [facility] Comment on above: Performed By: #### L AB103, LAB17 #### Service Coordinator: STEVIE ELMORE ([phone]) [facility] [address] Hemoglobin (Bld) [Mass/Vol] 8.1 g/dL Low 11.7-16.0 [facility] Comment on above: Performed By: #### L AB103, LAB17 #### Service Coordinator: STEVIE CATARINA ([id number]) [facility] [address] IMMATURE GRANS % 4.5 % High 0.0-2.0 [facility] Comment on above: Performed By: #### L AB103, LAB17 #### Service Coordinator: STEVIE CATARINA ([phone]) [facility] [address] IMMATURE GRANS ABSOLUTE 0.3 10*3/uL High <0.1 [facility] Comment on above: Performed By: #### L AB103, LAB17 #### Service Coordinator: STEVIE CATARINA ([id number]) [facility] ([facility]) [address] Lymphocytes (Bld) [#/Vol] 2.0 10*3/uL Normal 1.0-4.3 [facility] Comment on above: Performed By: #### L AB103, LAB17 #### Service Coordinator: STEVIE CATARINA ([phone]) [facility] [address] Lymphocytes/100 WBC (Bld) 30.8 % Normal 15.0-45.0 [facility] Comment on above: Performed By: #### L AB103, LAB17 #### Service Coordinator: STEVIE CATARINA ([phone]) [facility] (SB[facility]AB) [address] MCH (RBC) [Entitic mass] 28.1 pg Normal 26.0-34.0 [facility] Comment on above: Performed By: #### L AB103, LAB17 #### Service Coordinator: STEVIE ELMORE ([phone]) [facility] ([facility]) [address] MCHC 30.6 % Normal 30.5-36.0 [facility] Comment on above: Performed By: #### L AB103, LAB17 #### Service Coordinator: STEVIE PUTNAMPERICO ([phone]) [facility] [address] MCV (RBC) [Entitic vol] 92.0 fL Normal 77.0-99.0 [facility] Comment on above: Performed By: #### L AB103, LAB17 #### Service Coordinator: STEVIE PUTNAMPERICO ([phone]) [facility] ([facility]) [address] Monocytes (Bld) [#/Vol] 0.7 10*3/uL Normal 0.0-0.9 [facility] Comment on above: Performed By: #### L AB103, LAB17 #### Service Coordinator: STEVIE ELMORE ([phone]) [facility] [place] ([facility]) [address] Monocytes/100 WBC (Bld) 10.0 % Normal 5.0-13.0 [facility] Comment on above: Performed By: #### L AB103, LAB17 #### Service Coordinator: STEVIE ELMORE ([phone]) [facility] [place] ([facility]) [address] NEUTROPHILS ABSOLUTE 3.3 10*3/uL Normal 1.8-7.5 [facility] Comment on above: Performed By: #### L AB103, LAB17 #### Service Coordinator: STEVIE ELMORE ([phone]) [facility] [place] ([facility]) [address] Neutrophils/100 WBC (Bld) 51.4 % Normal 38.0-82.0 [facility] Comment on above: Performed By: #### L AB103, LAB17 #### Service Coordinator: STEVIE ELMORE ([phone]) [facility] [place] ([facility]) [address] NRBC 0.0 /100 WBCs Normal 0.0-2.0 [facility] Comment on above: Performed By: #### L AB103, LAB17 #### Service Coordinator: STEVIE ELMORE ([phone]) [facility] [place] ([facility]) [address] Platelet mean volume (Bld) [Entitic vol] 8.6 fL Low 9.0-12.7 [facility] Comment on above: Performed By: #### L AB103, LAB17 #### Service Coordinator: STEVIE ELMORE ([phone]) [facility] [place] ([facility]) [address] [place] [address] [place] Platelets (Bld) [#/Vol] 210 10*3/uL Normal 140-440 [facility] Comment on above: Performed By: #### L AB103, LAB17 #### Service Coordinator: STEVIE ELMORE ([phone]) [facility] [place] ([facility]) [address] RBC (Bld) [#/Vol] 2.88 10*6/uL Low 3.80-5.20 [facility] Comment on above: Performed By: #### L AB103, LAB17 #### Service Coordinator: STEVIE ELOMRE ([phone]) [facility] [place] ([facility]) [address] WBC (Bld) [#/Vol] 6.5 10*3/uL Normal 3.6-10.7 [facility] Comment on above: Performed By: #### L AB103, LAB17 #### Service Coordinator: STEVIE ELMORE ([phone]) [facility] [place] ([facility]) [address] COMPLETE URINALYSISon 2023 AMORPHOUS CRYSTALS (#/HPF) IN URINE Few Abnormal Negative [facility] Comment on above: Performed By: #### L AB103, LAB17 #### Service Coordinator: STEVIE ELMORE ([phone]) [facility] [place] ([facility]) [address] BACTERIA (#/HPF) IN URINE Few Abnormal Negative [facility] Comment on above: Performed By: #### L AB103, LAB17 #### Service Coordinator: STEVIE ELMORE ([phone]) [facility] [place] ([facility]) [address] [place] [address] [place] BILIRUBIN, TOTAL PRESENCE IN URINE Negative Normal Negative [facility] Comment on above: Performed By: #### L AB103, LAB17 #### Service Coordinator: STEVIE ELMORE ([phone]) [facility] [place] ([facility]) [address] Clarity (U) Cloudy Abnormal Clear [facility] Comment on above: Performed By: #### L AB103, LAB17 #### Service Coordinator: STEVIE ELMORE ([phone]) [facility] ([facility]) [address] Color (U) Yellow Normal Lt. Yellow [facility] Comment on above: Performed By: #### L AB103, LAB17 #### Service Coordinator: STEVIE ELMORE ([phone]) [facility] ([facility]) [address] GLUCOSE (MG/DL) IN URINE Normal Normal Normal (<70) [facility] Comment on above: Performed By: #### L AB103, LAB17 #### Service Coordinator: STEVIE ELMORE ([id number]) [facility] ([facility]) [address] HEMOGLOBIN PRESENCE IN URINE Negative Normal Negative [facility] Comment on above: Performed By: #### L AB103, LAB17 #### Service Coordinator: STEVIE ELMORE ([phone]) [facility] (HLAB) [address] Ketones Ql (U) Negative Normal Negative [facility] Comment on above: Performed By: #### L AB103, LAB17 #### Service Coordinator: STEVIE ELMORE ([phone]) [facility] ([facility]) [address] LEUKOCYTE ESTERASE PRESENCE IN URINE BY TEST STRIP 500 Ha/uL Abnormal Negative [facility] Comment on above: Performed By: #### L AB103, LAB17 #### Service Coordinator: STEVIE ELMORE ([phone]) [facility] ([facility]) [address] [place] [address] [place] MUCUS (#/LPF) IN URINE SEDIMENT Few Normal Negative [facility] Comment on above: Performed By: #### L AB103, LAB17 #### Service Coordinator: STEVIE ELMORE ([phone]) [facility] ([facility]) [address] [place] [address] [place] NITRITE PRESENCE IN URINE Negative Normal Negative [facility] Comment on above: Performed By: #### L AB103, LAB17 #### Service Coordinator: STEVIE ELMORE ([phone]) [facility] ([facility]) [address] [place] [address] [place] NON-SQUAMOUS EPITHELIAL (#/HPF) IN URINE 0-2 Abnormal Negative [facility] Comment on above: Performed By: #### L AB103, LAB17 #### Service Coordinator: STEVIE ELMORE ([phone]) [facility] ([facility]) [address] pH (U) 6.0 [pH] Normal 5.0-8.0 [facility] Comment on above: Performed By: #### L AB103, LAB17 #### Service Coordinator: STEVIE ELMORE ([id number]) [facility] ([facility]) [address] [place] [address] [place] Protein (U) [Mass/Vol] 30 mg/dL Abnormal Negative [facility] Comment on above: Performed By: #### L AB103, LAB17 #### Service Coordinator: STEVIE ELMORE ([phone]) [facility] ([facility]) [address] [place] [address] [place] RBC (#/HPF) IN URINE SEDIMENT 0-2 Normal 0-2 [facility] Comment on above: Performed By: #### L AB103, LAB17 #### Service Coordinator: STEVIE ELMORE ([id number]) [facility] ([facility]) [address] [place] [address] [place] Specific gravity (U) [Rel density] 1.018 Normal 1.005-1.030 [facility] Comment on above: Performed By: #### L AB103, LAB17 #### Service Coordinator: STEVIE ELMORE ([id number]) [facility] ([facility]) [address] [place] [address] [place] SQUAMOUS EPITHELIAL CELLS (#/HPF) IN URINE SEDIMENT 11-25 Abnormal 3-5 [facility] Comment on above: Performed By: #### L AB103, LAB17 #### Service Coordinator: STEVIE ELMORE ([id number]) [facility] ([facility]) [address] UROBILINOGEN (MG/DL) IN URINE Normal Normal Normal (0-1) [facility] Comment on above: Performed By: #### L AB103, LAB17 #### Service Coordinator: STEVIE ELMORE ([id number]) [facility] [address] WBC (LEUKOCYTE) (#/HPF) IN URINE SEDIMENT 09-22 Abnormal 0-5 [facility] Comment on above: Performed By: #### L AB103, LAB17 #### Service Coordinator: STEVIE ELMORE ([id number]) [facility] [address] COMPREHENSIVE METABOLIC PANE Wade 02-25-2024 Albumin [Mass/Vol] 2.3 g/dL Low 3.5-5.0 [facility] Comment on above: Performed By: #### L AB103, LAB17 #### Service Coordinator: STEVIE ELMORE ([phone]) [facility] [address] ALP [Catalytic activity/Vol] 63 U/L Normal 38-126 [facility] Comment on above: Performed By: #### L AB103, LAB17 #### Service Coordinator: STEVIE ELMORE ([id number]) [facility] [address] [place] [address] [place] ALT [Catalytic activity/Vol] 20 U/L Normal 0-34 [facility] Comment on above: Performed By: #### L AB103, LAB17 #### Service Coordinator: STEVIE ELMORE ([id number]) [facility] [address] Anion gap [Moles/Vol] 1 mmol/L Low 3-13 [facility] Comment on above: Performed By: #### L AB103, LAB17 #### Service Coordinator: STEVIE ELMORE ([id number]) [facility]) [address] AST [Catalytic activity/Vol] 18 U/L Normal 15-46 [facility] Comment on above: Performed By: #### L AB103, LAB17 #### Service Coordinator: STEVIE ELMORE ([id number]) [facility] ([facility]) [address] Bilirubin [Mass/Vol] 0.2 mg/dL Normal 0.2-1.3 [facility] Comment on above: Performed By: #### L AB103, LAB17 #### Service Coordinator: STEVIE ELMORE ([id number]) [facility] [address] Calcium [Mass/Vol] 8.3 mg/dL Low 8.4-10.4 [facility] Comment on above: Performed By: #### L AB103, LAB17 #### Service Coordinator: STEVIE ELMORE ([id number]) [facility] [address] [place] [address] [place] Chloride [Moles/Vol] 106 mmol/L Normal 98-107 [facility] Comment on above: Performed By: #### L AB103, LAB17 #### Service Coordinator: STEVIE ELMORE ([id number]) [facility] [address] [place] [address] [place] CO2 [Moles/Vol] 28 mmol/L Normal 22-30 [facility] Comment on above: Performed By: #### L AB103, LAB17 #### Service Coordinator: STEVIE ELMORE ([phone]) [facility] [address] [place] [address] [place] Creatinine [Mass/Vol] 1.25 mg/dL High 0.52-1.04 [facility] Comment on above: Performed By: #### L AB103, LAB17 #### Service Coordinator: STEVIE ELMORE ([id number]) [facility] ([facility]) [address] GLOMERULAR FILTRATION RATE ML/MIN/1.73 SQ M.PREDICTED 47.6 mL/min/1.73m*2 Low >60.0 [facility] Comment on above: Result Comment: Calc ulation based on the Chronic Kidney Disease Epidemiology Collaboration (CKD-EPI) equation refit without adjustment for race Performed By: #### L AB103, LAB17 #### Service Coordinator: STEVIE ELMORE ([id number]) [facility] [address] Glucose [Mass/Vol] 149 mg/dL High 70-100 [facility] Comment on above: Performed By: #### L AB103, LAB17 #### Service Coordinator: STEVIE ELMORE ([id number]) [facility] ([facility]) [address] Potassium [Moles/Vol] 4.0 mmol/L Normal 3.5-5.1 [facility] Comment on above: Performed By: #### L AB103, LAB17 #### Service Coordinator: STEVIE ELMORE ([id number]) [facility] [address] Protein [Mass/Vol] 4.7 g/dL Low 6.3-8.2 [facility] Comment on above: Performed By: #### L AB103, LAB17 #### Service Coordinator: STEVIE ELMORE ([id number]) [facility] ([facility]) [address] [place] [address] [place] Sodium [Moles/Vol] 135 mmol/L Normal 135-145 [facility] Comment on above: Performed By: #### L AB103, LAB17 #### Service Coordinator: STEVIE ELMORE ([id number]) [facility] ([facility]) [address] Urea nitrogen [Mass/Vol] 28 mg/dL High 7-17 [facility] Comment on above: Performed By: #### L AB103, LAB17 #### Service Coordinator: STEVIE ELMORE ([phone]) [facility] ([facility]) [address] Comprehensive metabolic 1998 panelon 02-25-2024 Albumin [Mass/Vol] 2.3 g/dL Low 3.5 - 5.0 g/dL [facility] ALP [Catalytic activity/Vol] 63 U/L 38 - 126 U/L [facility] ALT [Catalytic activity/Vol] 20 U/L 0 - 34 U/L [facility] Anion gap [Moles/Vol] 1 mmol/L Low 3 - 13 mmol/L [facility] AST [Catalytic activity/Vol] 18 U/L 15 - 46 U/L [facility] Bilirubin [Mass/Vol] 0.2 mg/dL 0.2 - 1 .3 mg/dL [facility] Calcium [Mass/Vol] 8.3 mg/dL Low 8.4 - 10. 4 mg/dL [facility] Chloride [Moles/Vol] 106 mmol/L 98 - 10 7 mmol/L [facility] CO2 [Moles/Vol] 28 mmol/L 22 - 30 mmol/L [facility] Creatinine [Mass/Vol] 1.25 mg/dL High 0.52 - 1.04 mg/dL [facility] GFR/1.73 sq M.predicted MDRD (S/P/Bld) [Vol rate/Area] 47.6 mL/min/{1.73_m2} Low - PINF [facility] th Glucose [Mass/Vol] 149 mg/dL High 70 - 100 mg/dL [facility] Interpretation and review of laboratory results Abnormal [facility] Potassium [Moles/Vol] 4.0 mmol/L 3.5 - 5.1 mmol/L [facility] Protein [Mass/Vol] 4.7 g/dL Low 6.3 - 8.2 g/dL [facility] Sodium [Moles/Vol] 135 mmol/L 135 - 145 mmol/L [facility] Urea nitrogen [Mass/Vol] 28 mg/dL High 7 - 17 mg/dL [facility] Laboratory - Chemistry and C hemistry - challengeon 02-25-2024 Glucose [Mass/Vol] 158 mg/dL High 70 - 100 mg/dL [facility] Glucose [Mass/Vol] 161 mg/dL High 70 - 100 mg/dL [facility] Glucose [Mass/Vol] 117 mg/dL High 70 - 100 mg/dL [facility] Glucose [Mass/Vol] 105 mg/dL High 70 - 100 mg/dL [facility] Laboratory - Microbiology an d Antimicrobial susceptibilityOrdered By: Janelle Morton on 02-25-2024 Bacteria identified Cx Nom (U) Normal urogenital krys present [facility] Bacteria identified Cx Nom (U) >100,000 CFU/mL Escherichia coli Abnormal [facility] Bacteria identified Cx Nom (U) >100,000 CFU/mL Enterococcus faecalis Abnormal [facility] No Panel Informationon 02-24 Interpretation and review of laboratory results Abnormal [facility] Interpretation and review of laboratory results Abnormal [facility] Interpretation and review of laboratory results Abnormal [facility] Interpretation and review of laboratory results Abnormal [facility] Radiology Study observation (narrative) [facility] Study [facility] (narrative) [facility] Radiology Study observation (narrative) [facility] Radiology Study observation (narrative) [facility] Progress Noteon 02-25-[address] [facility] Medical [facility] Geriatric Medicine Inpatient Consult Service [...] change in mental status. She resides at [facility]. Family reported has had several hospitalizations [...] States she tried therapy at facility and "didn't work". -Nursing reports patient has flat affect. No [...] (97.2 ?F) (Temporal) Resp 18 Ht 5' 5" (1.651 m) Wt 249 lb 6.4 oz [...] Daily, Rob Lai MD, 40 mg at 02/25/2411 bisacodyl (Dulcolax) EC tablet 5 mg, 5 [...] % cream, , Topical, BID, Manisha Tao APRN - FINANCIAL DEVELOPER, Given at 02/25/24 09 methenamine hippurate (Hiprex) tablet 1 g, 1 g, Oral, BID, Rob Lai MD, 1 g at 02/25/24 0913 metoprolol succinat (more content not included)... Normal [facility] Progress Note [phone]: Please pa jasen va ([phone]) for patient care issues. [phone]: Please page [facility] Hospitalist for any issues. Subjective: Admit Date: [...] Net 200 ml LABS: CBC: Recent Labs 02/23/242 02/24/2421902/25/24224 WBC 7.5 8.3 6.5 RBC 3.08* 3.03* 2.88* HGB 8.7* 8.6* 8.1* HCT 28.1* 27.7* 26.5* MCV 91.2 91.4 92.0 RDW 15.6* 15.1* 14.8 PLT 182 196 210 BMP: Recent Labs 02/23/24 0322 02/24/2421902/25/24224 NA 135 135 135 K 3.7 3.4* 4.0 CL 101 102 106 CO2 28 30 28 BUN 35* 33* 28* CREATININE 1.62* 1.42* 1.25* GLUCOSE 111* 105* 149* CALCIUM 8.1* 8.5 8.3* ANIONGAP 6 3 1* LIVER PROFILE: Recent Labs 02/23/24 0322 02/24/24 0220 02/25/24 022 AST 23 27 18 ALT 20 24 20 BILITOT 0.4 0.3 0.2 ALKPHOS 70 66 63 PROT 5.1* 5.2* 4.7* PT/INR: No results for input(s): "PROTIME", "INR" in the last 72 hours. CARDIAC ENZYMES: No results for input(s): "TROPONINI" in the last 72 hours. Procalcitonin: No results found for: PROCAL Objective: Vitals: BP 140/67 (BP Location: Right arm, Patient Position: Lying) Pulse 82 Temp 36.2 ?C (97.2 ?F) (Temporal) Resp 18 Ht 5' 5" (1.651 m) Wt 249 lb 6.4 oz [...] Alexandro [employer] Relation: Daughter Preferred language: Nigerian [employer] Con[employer] Manager needed? No Advance Directive: Full Code Discharge planning: TBD Ann Reed MD Division of Hospitalist Medicine Inpatient Medical Services/[facility] URINE CULTUREon 02-25-2024 Bacteria identified Cx Nom (U) URINE CULTURE Reference Normal urogenital krys present JOSE ALBICANS 10,000-50,000 CFU/mL Jose albicans (A) [ S = SUSCEPTIBLE R = RESISTANT I = INTERMEDIATE S-DD = Susceptible-dose dependent NS = Non-susceptible NO = No Interpretation ] [facility] Comment on above: Order Comment: Use e xisting specimen Performed By: #### L [id number] ####Service Coordinator: SILVIA FRENCH ([id number])[facility] ([address] Urinalysis complete panel (U )Ordered By: Madison Jackson on 02-25-2024 Amorphous Crystals, Urine Few Abnormal Negative /HPF [facility] Bacteria LM.HPF (Urine sed) [#/Area] Few Abnormal Negative /HPF [facility] Bilirubin Ql (U) Negative Negative mg/dL [facility] Clarity (U) Cloudy Abnormal Clear [facility] Color (U) Yellow Lt. Yellow [facility] Epithelial cells.squamous LM.HPF (Urine sed) [#/Area] 11-25 [facility] Ql (U) Normal Normal (<70) mg/dL [facility] Hemoglobin Ql (U) Negative Negative mg/dL [facility] Interpretation and review of laboratory results Abnormal [facility] Ketones (U) [Mass/Vol] Negative Negat rhonda mg/dL [facility] Leukocyte esterase Test strip Ql (U) 500 Abnormal Negative Ha/uL [facility] Mucus LM.HPF (Urine sed) [#/Area] Few Negative /LPF [facility] Nitrite Ql (U) Negative Negative [facility] th Non-Squamous Epithalial Cells, Urine 0-2 Abnormal Negative /HPF [facility] pH (U) 6.0 [pH] 5.0 - 8.[address] [facility] Protein (U) [Mass/Vol] 30 mg/dL Abnormal Negative [facility] RBC LM.HPF (Urine sed) [#/Area] 0-2 [facility] Specific gravity (U) [Rel density] 1.018 1.005 - 1.030 [facility] Urobilinogen (U) [Mass/Vol] Normal Normal (0-1) mg/dL [facility] WBC LM.HPF (Urine sed) [#/Area] 11-25 Abnormal [facility] Bacteria identified Cx Nom ( Bld)Ordered By: Sravanthi White on 02-24-2024 Interpretation and review of laboratory results Abnormal [facility] CBC W Auto Differential pane l (Bld)on 02-24-2024 Basophils (Bld) [#/Vol] 0.0 10*3/uL 0.0 - 0.2 10*3/uL [facility] Basophils/100 WBC (Bld) 0.2 % 0.0 - 2.0 % [facility] Eosinophils (Bld) [#/Vol] 0.2 10*3/uL 0.0 - 0.5 10*3/uL [facility] Eosinophils/100 WBC (Bld) 2.2 % 0.0 - 6.0 % [facility] Erythrocyte distribution width (RBC) [Ratio] 15.1 % High 11.5 - 15.0 % [facility] Hematocrit (Bld) [Volume fraction] 27.7 % Low 35.0 - 47.0 % [facility] Hemoglobin (Bld) [Mass/Vol] 8.6 g/dL Low 11.7 - 16.0 g/dL [facility] Immature granulocytes (Bld) [#/Vol] 0.3 10*3/uL High NINF - 0.1 10*3/uL [facility] Immature granulocytes/100 WBC (Bld) 3.9 % High 0.0 - 2.0 % [facility] Interpretation and review of laboratory results Abnormal [facility] Lymphocytes (Bld) [#/Vol] 1.9 10*3/uL 1.0 - 4.3 10*3/uL [facility] Lymphocytes/100 WBC (Bld) 22.7 % 15.0 - 45.0 % [facility] MCH (RBC) [Entitic mass] 28.4 pg 26.0 - 34.[address] [facility] MCHC (RBC) [Mass/Vol] 31.0 % 30.5 - 36.0 % [facility] MCV (RBC) [Entitic vol] 91.4 fL 77.0 - 99.[address] [facility] Monocytes (Bld) [#/Vol] 1.0 10*3/uL High 0.0 - 0.9 10*3/uL [facility] Monocytes/100 WBC (Bld) 12.4 % 5.0 - 13.0 % [facility] Neutrophils (Bld) [#/Vol] 4.9 10*3/uL 1.8 - 7.5 10*3/uL [facility] Neutrophils/100 WBC (Bld) 58.6 % 38.0 - 82.0 % [facility] Nucleated RBC/100 WBC (Bld) [Ratio] 0.0 % [facility] Platelet mean volume (Bld) [Entitic vol] 8.9 fL Low 9.0 - 12.[address] [facility] Platelets (Bld) [#/Vol] 196 10*3/uL 140 - 440 10*3/uL [facility] RBC (Bld) [#/Vol] 3.03 10*6/uL Low 3.80 - 5.2 0 10*6/uL [facility] WBC (Bld) [#/Vol] 8.3 10*3/uL 3.6 - 10.7 10*3/uL [facility] CBC WITH AUTO DIFFERENTIALon 02-24-2024 Basophils (Bld) [#/Vol] 0.0 10*3/uL Normal 0.0-0.2 [facility] Comment on above: Performed By: #### L AB103, LAB17 #### Service Coordinator: STEVIE ELMORE ([id number]) [facility] [address] [place] [address] [place] Basophils/100 WBC (Bld) 0.2 % Normal 0.0-2.0 [facility] Comment on above: Performed By: #### L AB103, LAB17 #### Service Coordinator: STEVIE ELMORE ([id number]) [facility] [address] [place] [address] [place] Eosinophils (Bld) [#/Vol] 0.2 10*3/uL Normal 0.0-0.5 [facility] Comment on above: Performed By: #### L AB103, LAB17 #### Service Coordinator: STEVIE ELMORE ([id number]) [facility] [address] [place] [address] [place] Eosinophils/100 WBC (Bld) 2.2 % Normal 0.0-6.0 [facility] Comment on above: Performed By: #### L AB103, LAB17 #### Service Coordinator: STEVIE ELMORE ([id number]) [facility] [address] [place] [address] [place] Erythrocyte distribution width (RBC) [Ratio] 15.1 % High 11.5-15.0 [facility] Comment on above: Performed By: #### L AB103, LAB17 #### Service Coordinator: STEVIE MOSQUEDACER ([id number]) [facility] ([facility] [address] Hematocrit (Bld) [Volume fraction] 27.7 % Low 35.0-47.0 [facility] Comment on above: Performed By: #### L AB103, LAB17 #### Service Coordinator: STEVIE MOSQUEDACER ([id number]) [facility] [address] Hemoglobin (Bld) [Mass/Vol] 8.6 g/dL Low 11.7-16.0 [facility] Comment on above: Performed By: #### L AB103, LAB17 #### Service Coordinator: STEVIE PUTNAMPERICO ([phone]) [facility] [address] IMMATURE GRANS % 3.9 % High 0.0-2.0 [facility] Comment on above: Performed By: #### L AB103, LAB17 #### Service Coordinator: STEVIE ELMORE ([id number]) [facility] ([facility] [address] IMMATURE GRANS ABSOLUTE 0.3 10*3/uL High <0.1 [facility] Comment on above: Performed By: #### L AB103, LAB17 #### Service Coordinator: STEVIE ELMORE ([id number]) [facility] ([facility] [address] Lymphocytes (Bld) [#/Vol] 1.9 10*3/uL Normal 1.0-4.3 [facility] Comment on above: Performed By: #### L AB103, LAB17 #### Service Coordinator: STEVIE ELMORE ([id number]) [facility] ([facility]) [address] Lymphocytes/100 WBC (Bld) 22.7 % Normal 15.0-45.0 [facility] Comment on above: Performed By: #### L AB103, LAB17 #### Service Coordinator: STEVIE ELMORE ([id number]) [facility] ([facility]) [address] MCH (RBC) [Entitic mass] 28.4 pg Normal 26.0-34.0 [facility] Comment on above: Performed By: #### L AB103, LAB17 #### Service Coordinator: STEVIE ELMORE ([id number]) [facility] ([facility]) [address] MCHC 31.0 % Normal 30.5-36.0 [facility] Comment on above: Performed By: #### L AB103, LAB17 #### Service Coordinator: STEVIE ELMORE ([id number]) [facility] [place] ([facility]) [address] MCV (RBC) [Entitic vol] 91.4 fL Normal 77.0-99.0 [facility] Comment on above: Performed By: #### L AB103, LAB17 #### Service Coordinator: STEVIE ELMORE ([id number]) [facility] [place] ([facility]) [address] Monocytes (Bld) [#/Vol] 1.0 10*3/uL High 0.0-0.9 [facility] Comment on above: Performed By: #### L AB103, LAB17 #### Service Coordinator: STEVIE ELMORE ([id number]) [facility] [place] ([facility]) [address] [place] [address] [place] Monocytes/100 WBC (Bld) 12.4 % Normal 5.0-13.0 [facility] Comment on above: Performed By: #### L AB103, LAB17 #### Service Coordinator: STEVIE ELMORE ([id number]) [facility] [address] [place] [address] [place] NEUTROPHILS ABSOLUTE 4.9 10*3/uL Normal 1.8-7.5 [facility] Comment on above: Performed By: #### L AB103, LAB17 #### Service Coordinator: STEVIE ELMORE ([id number]) [facility] [place] ([facility]) [address] Neutrophils/100 WBC (Bld) 58.6 % Normal 38.0-82.0 [facility] Comment on above: Performed By: #### L AB103, LAB17 #### Service Coordinator: STEVIE ELMORE ([id number]) [facility] [address] NRBC 0.0 /100 WBCs Normal 0.0-2.0 [facility] Comment on above: Performed By: #### L AB103, LAB17 #### Service Coordinator: STEVIE ELMORE ([id number]) [facility] [address] Platelet mean volume (Bld) [Entitic vol] 8.9 fL Low 9.0-12.7 [facility] Comment on above: Performed By: #### L AB103, LAB17 #### Service Coordinator: STEVIE ELMORE ([id number]) [facility] [address] Platelets (Bld) [#/Vol] 196 10*3/uL Normal 140-440 [facility] Comment on above: Performed By: #### L AB103, LAB17 #### Service Coordinator: STEVIE ELMORE ([id number]) [facility] [address] [place] [address] [place] RBC (Bld) [#/Vol] 3.03 10*6/uL Low 3.80-5.20 [facility] Comment on above: Performed By: #### L AB103, LAB17 #### Service Coordinator: STEVIE ELMORE ([id number]) [facility] [address] WBC (Bld) [#/Vol] 8.3 10*3/uL Normal 3.6-10.7 [facility] Comment on above: Performed By: #### L AB103, LAB17 #### Service Coordinator: STEVIE ELMORE ([id number]) [facility] ([facility]) [address] COMPREHENSIVE METABOLIC PANE Wade 02-24-2024 Albumin [Mass/Vol] 2.6 g/dL Low 3.5-5.0 [facility] Comment on above: Performed By: #### L AB103, LAB17 #### Service Coordinator: STEVIE ELMORE ([id number]) [facility] ([facility]) [address] ALP [Catalytic activity/Vol] 66 U/L Normal 38-126 [facility] Comment on above: Performed By: #### L AB103, LAB17 #### Service Coordinator: STEVIE ELMORE ([id number]) [facility] [address] ALT [Catalytic activity/Vol] 24 U/L Normal 0-34 [facility] Comment on above: Performed By: #### L AB103, LAB17 #### Service Coordinator: STEVIE ELMORE ([id number]) [facility] ([facility]) [address] Anion gap [Moles/Vol] 3 mmol/L Normal 3-13 [facility] Comment on above: Performed By: #### L AB103, LAB17 #### Service Coordinator: STEVIE ELMORE ([id number]) [facility] [address] [place] [address] [place] AST [Catalytic activity/Vol] 27 U/L Normal 15-46 [facility] Comment on above: Performed By: #### L AB103, LAB17 #### Service Coordinator: STEVIE ELMORE ([id number]) [facility] ([facility]) [address] Bilirubin [Mass/Vol] 0.3 mg/dL Normal 0.2-1.3 [facility] Comment on above: Performed By: #### L AB103, LAB17 #### Service Coordinator: STEVIE ELMORE ([id number]) [facility] ([facility]) [address] Calcium [Mass/Vol] 8.5 mg/dL Normal 8.4-10.4 [facility] Comment on above: Performed By: #### L AB103, LAB17 #### Service Coordinator: STEVIE ELMORE ([id number]) [facility] ([facility]) [address] Chloride [Moles/Vol] 102 mmol/L Normal 98-107 [facility] Comment on above: Performed By: #### L AB103, LAB17 #### Service Coordinator: STEVIE ELMORE ([id number]) [facility] ([facility]) [address] CO2 [Moles/Vol] 30 mmol/L Normal 22-30 [facility] Comment on above: Performed By: #### L AB103, LAB17 #### Service Coordinator: STEVIE ELMORE ([id number]) [facility] ([facility]) [address] Creatinine [Mass/Vol] 1.42 mg/dL High 0.52-1.04 [facility] Comment on above: Performed By: #### L AB103, LAB17 #### Service Coordinator: STEVIE ELMORE ([phone]) [facility] ([facility]) [address] [place] [address] [place] GLOMERULAR FILTRATION RATE ML/MIN/1.73 SQ M.PREDICTED 40.9 mL/min/1.73m*2 Low >60.0 [facility] Comment on above: Result Comment: Calc ulation based on the Chronic Kidney Disease Epidemiology Collaboration (CKD-EPI) equation refit without adjustment for race Performed By: #### L AB103, LAB17 #### Service Coordinator: STEVIE ELMORE ([id number]) [facility] ([facility]) [address] Glucose [Mass/Vol] 105 mg/dL High 70-100 [facility] Comment on above: Performed By: #### L AB103, LAB17 #### Service Coordinator: STEVIE ELMORE ([id number]) [facility] ([facility]) [address] Potassium [Moles/Vol] 3.4 mmol/L Low 3.5-5.1 [facility] Comment on above: Performed By: #### L AB103, LAB17 #### Service Coordinator: STEVIE ELMORE ([phone]) [facility] ([facility]) [address] Protein [Mass/Vol] 5.2 g/dL Low 6.3-8.2 [facility] Comment on above: Performed By: #### L AB103, LAB17 #### Service Coordinator: STEVIE ELMORE ([phone]) [facility] ([facility]) [address] Sodium [Moles/Vol] 135 mmol/L Normal 135-145 [facility] Comment on above: Performed By: #### L AB103, LAB17 #### Service Coordinator: STEVIE ELMORE ([id number]) [facility] ([facility]) [address] Urea nitrogen [Mass/Vol] 33 mg/dL High 7-17 [facility] Comment on above: Performed By: #### L AB103, LAB17 #### Service Coordinator: STEVIE ELMORE ([id number]) [facility] ([facility]) [address] Comprehensive metabolic 1998 panelon 02-24-2024 Albumin [Mass/Vol] 2.6 g/dL Low 3.5 - 5.0 g/dL [facility] ALP [Catalytic activity/Vol] 66 U/L 38 - 126 U/L [facility] ALT [Catalytic activity/Vol] 24 U/L 0 - 34 U/L [facility] Anion gap [Moles/Vol] 3 mmol/L 3 - 13 mmol/L [facility] AST [Catalytic activity/Vol] 27 U/L 15 - 46 U/L [facility] Bilirubin [Mass/Vol] 0.3 mg/dL 0.2 - 1 .3 mg/dL [facility] Calcium [Mass/Vol] 8.5 mg/dL 8.4 - 10. 4 mg/dL [facility] Chloride [Moles/Vol] 102 mmol/L 98 - 10 7 mmol/L [facility] CO2 [Moles/Vol] 30 mmol/L 22 - 30 mmol/L [facility] Creatinine [Mass/Vol] 1.42 mg/dL High 0.52 - 1.04 mg/dL [facility] GFR/1.73 sq M.predicted MDRD (S/P/Bld) [Vol rate/Area] 40.9 mL/min/{1.73_m2} Low - PINF [facility] th Glucose [Mass/Vol] 105 mg/dL High 70 - 100 mg/dL [facility] Interpretation and review of laboratory results Abnormal [facility] Potassium [Moles/Vol] 3.4 mmol/L Low 3.5 - 5.1 mmol/L [facility] Protein [Mass/Vol] 5.2 g/dL Low 6.3 - 8.2 g/dL [facility] Sodium [Moles/Vol] 135 mmol/L 135 - 145 mmol/L [facility] Urea nitrogen [Mass/Vol] 33 mg/dL High 7 - 17 mg/dL [facility] Laboratory - Chemistry and C hemistry - challengeon 02-24-2024 Glucose [Mass/Vol] 204 mg/dL High 70 - 100 mg/dL [facility] Glucose [Mass/Vol] 140 mg/dL High 70 - 100 mg/dL [facility] Glucose [Mass/Vol] 99 mg/dL 70 - 100 mg/dL [facility] Glucose [Mass/Vol] 83 mg/dL 70 - 100 mg/dL [facility] Magnesium [Mass/Vol] 2.2 mg/dL 1.6 - 2 .3 mg/dL [facility] Laboratory - Microbiology an d Antimicrobial susceptibilityOrdered By: Sravanthi White on 02-24-2024 Bacteria identified Cx Nom (Bld) Escherichia coli Critically abnormal [facility] MAGNESIUMon 02-24-2024 Magnesium [Mass/Vol] 2.2 mg/dL Normal 1.6-2.3 [facility] Comment on above: Performed By: #### L AB103, LAB17 #### Service Coordinator: STEVIE ELMORE ([phone]) [facility] ([facility]) [address] [place] [address] Magnesium [Mass/Vol]on 02-23 Interpretation and review of laboratory results Normal [facility] No Panel Informationon 02-23 Interpretation and review of laboratory results Abnormal [facility] Interpretation and review of laboratory results Abnormal [facility] Interpretation and review of laboratory results Normal [facility] Interpretation and review of laboratory results Normal [facility] Radiology Study observation (narrative) [facility] Radiology Study observation (narrative) [facility] Radiology Study observation (narrative) [facility] Rad[facility] Study observation (narrative) [facility] BLOOD CULTUREon 02-23-2024 Bacteria identified Cx Nom (Bld) BLOOD CULTURE Reference No growth at 5 days ORDER COMMENTS: Blood Collection Site: Left Arm [ S = SUSCEPTIBLE R = RESISTANT I = INTERMEDIATE S-DD = Susceptible-dose dependent NS = Non-susceptible NO = No Interpretation ] Normal [facility] Comment on above: Performed By: #### L [id number] #### Service Coordinator: SILVIA FRENCH ([id number]) [facility] ([facility]) [address] [place] [address] Bacteria identified Cx Nom (Bld) BLOOD CULTURE Reference No growth at 5 days ORDER COMMENTS: Blood Collection Site: Right Arm [ S = SUSCEPTIBLE R = RESISTANT I = INTERMEDIATE S-DD = Susceptible-dose dependent NS = Non-susceptible NO = No Interpretation ] [facility] Comment on above: Performed By: #### L AB462 ####Service Coordinator: SILVIA FRENCH ([id number])[facility] [place] [address] CARECOORDon 02-23-2024 [place] Care Coordination Jorge reich Note/Update Clinical Update: admitted with acute metabolic encephalopathy due to UTI and an elevated troponin due to demand ischemia. Changed IV Rocephin to IV ertapenem yesterday - will continue for 2 weeks. ID and Geriatrics consulted. Plan to repeat blood cultures this AM. Mental status improved. Discharge Plan: [facility] Discharge Barriers: clinical stability Chart reviewed. Per Geriatrics consult, plan is to follow up Sunday. IM note from 02/21 anticipates discharge on 02/24. Messaged bedside RN to request update if discharge orders are placed. TCC will continue to follow. Normal [facility] CBC (HEMOGRAM)on 02-23-2024 Erythrocyte distribution width (RBC) [Ratio] 15.6 % High 11.5-15.0 [facility] Comment on above: Performed By: #### L AB103, LAB17 #### Service Coordinator: STEVIE ELMORE ([id number]) [facility] ([facility]) [address] Hematocrit (Bld) [Volume fraction] 28.1 % Low 35.0-47.0 [facility] Comment on above: Performed By: #### L AB103, LAB17 #### Service Coordinator: STEVIE ELMORE ([id number]) [facility] ([facility]) [address] [place] [address] Hemoglobin (Bld) [Mass/Vol] 8.7 g/dL Low 11.7-16.0 [facility] Comment on above: Performed By: #### L AB103, LAB17 #### Service Coordinator: STEVIE ELMORE ([id number]) [facility] ([facility]) [address] MCH (RBC) [Entitic mass] 28.2 pg Normal 26.0-34.0 [facility] Comment on above: Performed By: #### L AB103, LAB17 #### Service Coordinator: STEVIE ELMORE ([id number]) [facility] ([facility]) [address] MCHC 31.0 % Normal 30.5-36.0 [facility] Comment on above: Performed By: #### L AB103, LAB17 #### Service Coordinator: STEVIE ELMORE ([id number]) [facility] ([facility]) [address] MCV (RBC) [Entitic vol] 91.2 fL Normal 77.0-99.0 [facility] Comment on above: Performed By: #### L AB103, LAB17 #### Service Coordinator: STEVIE ELMORE ([id number]) [facility] [address] Platelet mean volume (Bld) [Entitic vol] 9.0 fL Normal 9.0-12.7 [facility] Comment on above: Performed By: #### L 103, LAB17 #### Service Coordinator: STEVIE ELMORE ([id number]) [facility] ([facility] [address] [place] [address] [place] Platelets (Bld) [#/Vol] 182 10*3/uL Normal 140-440 [facility] Comment on above: Performed By: #### L AB103, LAB17 #### Service Coordinator: STEVIE ELMORE ([id number]) [facility] ([facility] [address] [place] [address] [place] RBC (Bld) [#/Vol] 3.08 10*6/uL Low 3.80-5.20 [facility] Comment on above: Performed By: #### L AB103, LAB17 #### Service Coordinator: STEVIE ELMORE ([id number]) [facility] ([facility] [address] [place] [address] [place] WBC (Bld) [#/Vol] 7.5 10*3/uL Normal 3.6-10.7 [facility] Comment on above: Performed By: #### L AB103, LAB17 #### Service Coordinator: STEVIE ELMORE ([id number]) [facility] ([facility]) [address] CBC panel Auto (Bld)on 02-22 Erythrocyte distribution width (RBC) [Ratio] 15.6 % High 11.5 - 15.0 % [facility] Hematocrit (Bld) [Volume fraction] 28.1 % Low 35.0 - 47.0 % [facility] Hemoglobin (Bld) [Mass/Vol] 8.7 g/dL Low 11.7 - 16.0 g/dL [facility] Interpretation and review of laboratory results Abnormal [facility] MCH (RBC) [Entitic mass] 28.2 pg 26.0 - 34.[address] [facility] MCHC (RBC) [Mass/Vol] 31.0 % 30.5 - 36.0 % [facility] MCV (RBC) [Entitic vol] 91.2 fL 77.0 - 99.[address] [facility] Platelet mean volume (Bld) [Entitic vol] 9.0 fL 9.0 - 12.[address] [facility] Platelets (Bld) [#/Vol] 182 10*3/uL 140 - 440 10*3/uL [facility] RBC (Bld) [#/Vol] 3.08 10*6/uL Low 3.80 - 5.2 0 10*6/uL [facility] WBC (Bld) [#/Vol] 7.5 10*3/uL 3.6 - 10.7 10*3/uL [facility] COMPREHENSIVE METABOLIC PANE Wade 02-23-2024 Albumin [Mass/Vol] 2.6 g/dL Low 3.5-5.0 [facility] Comment on above: Performed By: #### L AB17 ####Service Coordinator: STEVIE ELMORE ([id number])[facility] ([facility])[address] ALP [Catalytic activity/Vol] 70 U/L Normal 38-126 [facility] Comment on above: Performed By: #### L AB17 ####Service Coordinator: STEVIE ELMORE ([id number])[facility] ([facility])[address] [place] [address] [place] ALT [Catalytic activity/Vol] 20 U/L Normal 0-34 [facility] Comment on above: Performed By: #### L AB17 ####Service Coordinator: STEVIE ELMORE ([phone])[facility] Anion gap [Moles/Vol] 6 mmol/L Normal 3-13 [facility] Comment on above: Performed By: #### L AB17 ####Service Coordinator: STEVIE ELMORE ([id number])[facility] AST [Catalytic activity/Vol] 23 U/L Normal 15-46 [facility] Comment on above: Performed By: #### L AB17 ####Service Coordinator: STEVIE PUTNAMPERICO ([id number])[facility] ([facility])[address] Bilirubin [Mass/Vol] 0.4 mg/dL Normal 0.2-1.3 [facility] Comment on above: Performed By: #### L AB17 ####Service Coordinator: STEVIE ELMORE ([id number])[facility] ([facility])[address] Calcium [Mass/Vol] 8.1 mg/dL Low 8.4-10.4 [facility] Comment on above: Performed By: #### L AB17 ####Service Coordinator: STEVIE ELMORE ([phone])[facility] ([facility] [place] [address] [place] Chloride [Moles/Vol] 101 mmol/L Normal 98-107 [facility] Comment on above: Performed By: #### L AB17 ####Service Coordinator: STEVIE ELMORE ([id number])[facility] ([facility] [place] [address] [place] CO2 [Moles/Vol] 28 mmol/L Normal 22-30 [facility] Comment on above: Performed By: #### L AB17 ####Service Coordinator: STEVIE ELMORE ([id number])[facility] [place] ([facility])[address] Creatinine [Mass/Vol] 1.62 mg/dL High 0.52-1.04 [facility] Comment on above: Performed By: #### L AB17 ####Service Coordinator: STEVIE ELMORE ([id number])[facility] [place] ([facility])[address] GLOMERULAR FILTRATION RATE ML/MIN/1.73 SQ M.PREDICTED 34.9 mL/min/1.73m*2 Low >60.0 [facility] Comment on above: Result Comment: Calc ulation based on the Chronic Kidney Disease Epidemiology Collaboration (CKD-EPI) equation refit without adjustment for race Performed By: #### L AB17 ####Service Coordinator: STEVIE PUTNAMPERICO ([id number])[facility] [place] ([facility])[address] Glucose [Mass/Vol] 111 mg/dL High 70-100 [facility] Comment on above: Performed By: #### L AB17 ####Service Coordinator: STEVIE ELMORE ([id number])[facility] [place] ([facility])[address] Potassium [Moles/Vol] 3.7 mmol/L Normal 3.5-5.1 [facility] Comment on above: Performed By: #### L AB17 ####Service Coordinator: STEVIE ELMORE ([id number])[facility] [place] ([facility])[address] [place] [address] [place] Protein [Mass/Vol] 5.1 g/dL Low 6.3-8.2 [facility] Comment on above: Performed By: #### L AB17 ####Service Coordinator: STEVIE ELMORE ([id number])[facility] [place] ([facility])[address] [place] [address] [place] Sodium [Moles/Vol] 135 mmol/L Normal 135-145 [facility] Comment on above: Performed By: #### L AB17 ####Service Coordinator: STEVIE ELMORE ([id number])[facility] ([facility])[address] Urea nitrogen [Mass/Vol] 35 mg/dL High 7-17 [facility] Comment on above: Performed By: #### L AB17 ####Service Coordinator: STEVIE ELMORE ([id number])[facility] ([facility])[address] Comprehensive metabolic 1998 panelon 02-23-2024 Albumin [Mass/Vol] 2.6 g/dL Low 3.5 - 5.0 g/dL [facility] ALP [Catalytic activity/Vol] 70 U/L 38 - 126 U/L [facility] ALT [Catalytic activity/Vol] 20 U/L 0 - 34 U/L [facility] Anion gap [Moles/Vol] 6 mmol/L 3 - 13 mmol/L [facility] AST [Catalytic activity/Vol] 23 U/L 15 - 46 U/L [facility] Bilirubin [Mass/Vol] 0.4 mg/dL 0.2 - 1 .3 mg/dL [facility] Calcium [Mass/Vol] 8.1 mg/dL Low 8.4 - 10. 4 mg/dL [facility] Chloride [Moles/Vol] 101 mmol/L 98 - 10 7 mmol/L [facility] CO2 [Moles/Vol] 28 mmol/L 22 - 30 mmol/L [facility] Creatinine [Mass/Vol] 1.62 mg/dL High 0.52 - 1.04 mg/dL [facility] GFR/1.73 sq M.predicted MDRD (S/P/Bld) [Vol rate/Area] 34.9 mL/min/{1.73_m2} Low - PINF [facility] th Glucose [Mass/Vol] 111 mg/dL High 70 - 100 mg/dL [facility] Interpretation and review of laboratory results Abnormal [facility] Potassium [Moles/Vol] 3.7 mmol/L 3.5 - 5.1 mmol/L [facility] Protein [Mass/Vol] 5.1 g/dL Low 6.3 - 8.2 g/dL [facility] Sodium [Moles/Vol] 135 mmol/L 135 - 145 mmol/L [facility] Urea nitrogen [Mass/Vol] 35 mg/dL High 7 - 17 mg/dL [facility] Laboratory - Chemistry and C hemistry - challengeon 02-23-2024 Glucose [Mass/Vol] 239 mg/dL High 70 - 100 mg/dL [facility] Glucose [Mass/Vol] 205 mg/dL High 70 - 100 mg/dL [facility] Glucose [Mass/Vol] 78 mg/dL 70 - 100 mg/dL [facility] Glucose [Mass/Vol] mg/dL Low 70 - 100 mg/dL [facility] Glucose [Mass/Vol] 108 mg/dL High 70 - 100 mg/dL [facility] No Panel Informationon 02-22 Interpretation and review of laboratory results Abnormal [facility] Interpretation and review of laboratory results Abnormal [facility] Interpretation and review of laboratory results Normal [facility] Interpretation and review of laboratory results Abnormal [facility] Interpretation and review of laboratory results Abnormal [facility] Radiology Study observation (narrative) [facility] observation (narrative) [facility] Study observation (narrative) [facility] Study observation (narrative) [facility] Study observation (narrative) [facility] Progress Noteon 02-23-2024 Progress Note Speech-Language Pathology SPEECH LANGUAGE PATHOLOGY [facility] Bedside Swallow Evaluation Patient Name: Kimberly Patel Evaluation Date: 02/23/2024 Date of : 1955 Admission Date: 02/21/2024 10:26 AM Age: 68 y.o. Room/Bed: B2255/[facility] A IMPRESSION: No s/s oropharyngeal dysphagia. No overt clinical s/s pulmonary compromise with PO. RECOMMENDATION: Recommend Regular solids and Thin liquids and meds as tolerated and the following precautions: - Small bites/sips - Alternate solid and liquids No skilled acute AVIATION MAINTENANCE TECHNICIAN indicated at this time. Please reconsult should changes occur. Subjective Patient resting in bed - requires max encouragement to participate in clinical bedside swallow evaluation. Minimal verbal output during evaluation. Dysphagia History: No history of AVIATION MAINTENANCE TECHNICIAN services in EMR with retrospective chart review Baseline Diet: Per longterm information - pt current intakes regular diet [...] History: Diagnosis Date CHF (congestive heart failure) ([facility]) COPD (chronic obstructive pulmonary disease) ([facility]) Diabetes mellitus ([facility]) Past Surgical History: Past Surgical History: Procedure Laterality Date CHOLECYSTECTOMY COLONOSCOPY throat biopsy Admission Diagnosis: Patient Active Problem List Diagnosis Date Noted Bipolar disorder, most recent episode depressed ([facility]) ([facility]) 02/22/2024 Sphenoid sinusitis, unspecified chronicity 02/21/2024 Bullous pemphigoid 11/17/2022 Acute on chronic diastolic congestive heart failure ([facility]) 08/22/2022 Physical debility 10/12/2021 Other hyperlipidemia 10/12/2021 CAD (coronary artery disease) 10/12/2021 Primary hypertension 10/12/2021 Neuropathy 10/12/2021 Bacteremia 10/12/2021 Acute kidney injury superimposed on CKD ([facility]) ([facility]) 10/12/2021 Type 2 diabetes mellitus with diabetic polyneuropathy, with long-term current use of insulin ([facility]) 10/12/2021 History of Present Illness: Kimberly Patel [...] to sleep Encounter Problems Encounter Problems (Active) AVIATION MAINTENANCE TECHNICIAN [facility] Participate in Bedside swallow evaluation Start: 02/22/24 Expected End: 02/25/24 Therapy Time AVIATION MAINTENANCE TECHNICIAN Individual Minutes Time In: 0745 Time Out: 0801 Minutes: 16 Nuno Eastman MA, CCC-AVIATION MAINTENANCE TECHNICIAN [facility] Progress Note Placed patient on P5 00 Specialty Bed [facility] CARECOORDon 02-22-2024 [facility] Weekend dc form ( ambulance form) completed and placed on patients chart in the event she is [facility]. [facility] Care Managment Initi al Assessment Date: 02/22/2024 Patient Name: Kimberly Patel : 1955 Patient Information Source of Information: Patient, Patient In Mold Coater Name/Contact Information: Alexandro Cote, DTR [phone] Cognition/Language: WFL - Within Functional Limits Permission given to speak with patient passenger service representative/caregive r as indicated: Yes Confirmation of Payer with patient/family: Yes Payer Name: Medicare A/B and [facility] Medicaid : No Confirmation of Primary Care Physician: Confirmed PCP Name: Lucy Quick Seen in last 2 years?: Yes Primary Caregiver: Self If assistance needed, confirmed caregiver ready, willing and able to care for patient at discharge: Confirmed with: Living Arrangements Current Residence: Number of Floors Number of Entry Steps: Bed/Bath Levels: Facility: Long-Term/[facility]idental Care Facility Name: [facility] Plan to Return: Lives with: Other (Comment) (Facility staff) Support Systems: Children Activities of Daily Living Ambulation: Total Care Bathing/Dressing: Total Care Elimination/Continence/ Toileting: Total Care Feeding: Total Care Who Assists with Activities of Daily Living: Nursing staff at [facility] Instrumental Activities of Daily Living Prescription Coverage: Yes Pharmacy Used: Long-Term Medication Management: Transportation/Shopping : Independent (Long-Term) Transportation Mode: Payer provided transport service Needs Assistance with Transportation at Discharge: Meal Preparation: Assistance Provider Meal Prep Assistance Provider Name: Long-Term Laundry/Cleaning: Assistance Provider Laundry/Cleaning Assistance Provider Name: Long-Term Finances/Bill Paying: Assistance Provider Finances/Bill Payer Assistance Provider Name: Long-Term Communication: Assistance Types of Care Services/Equipment Utilized Care Services: Dialysis Type: NA Durable Medical Equipment: [employer] Lift Patient's Goal/Discharge Plan Patient expects to be discharged to: Return to [facility] Discharge Planning Actions: Continue to follow Patient's Choice Rights and [employer] and Collaborative Relationships Disclosed as Indicated for Post-Acute Care: NA Interdisciplinary Team Engagement: Social Work Referral for: Additional Information: Chart reviewed. Patient admitted to [facility] for treatment of confusion and altered mental status. New UTI. CHF, DM. On IV Rocephin. Regular diet. 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 Geriatrics. Met with patient at bedside today. Explained role. Patient reports she is tired and directs me to speak with her daughter. Spoke with Alexandro Cote over the phone, explained role. She is very pleasant. 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 She reports patient is a total care and bed bound at facility. Uses a mohamud lift. Will arrange transportation when ready. SURVEILLANCE MONITOR tasked to begin referral; response pending. Tasked Weekend DP team to follow. SW updated. Sejal Thomas RN [facility] CBC W Auto Differential pane l (Bld)Ordered By: Rita Beckham on 02-22-2024 Basophils (Bld) [#/Vol] 0.0 10*3/uL 0.0 - 0.2 10*3/uL [facility] Basophils/100 WBC (Bld) 0.2 % 0.0 - 2.0 % [facility] Eosinophils (Bld) [#/Vol] 0.1 10*3/uL 0.0 - 0.5 10*3/uL [facility] Eosinophils/100 WBC (Bld) 0.5 % 0.0 - 6.0 % [facility] Erythrocyte distribution width (RBC) [Ratio] 15.6 % High 11.5 - 15.0 % [facility] Hematocrit (Bld) [Volume fraction] 30.2 % Low 35.0 - 47.0 % [facility] Hemoglobin (Bld) [Mass/Vol] 9.6 g/dL Low 11.7 - 16.0 g/dL [facility] Immature granulocytes (Bld) [#/Vol] 0.3 10*3/uL High NINF - 0.1 10*3/uL [facility] Immature granulocytes/100 WBC (Bld) 3.3 % High 0.0 - 2.0 % [facility] Interpretation and review of laboratory results Abnormal [facility] Lymphocytes (Bld) [#/Vol] 0.9 10*3/uL Low 1.0 - 4.3 10*3/uL [facility] Lymphocytes/100 WBC (Bld) 9.5 % Low 15.0 - 45.0 % [facility] MCH (RBC) [Entitic mass] 28.6 pg 26.0 - 34.0 pg [facility] MCHC (RBC) [Mass/Vol] 31.8 % 30.5 - 36.0 % [facility] MCV (RBC) [Entitic vol] 89.9 fL 77.0 - 99.0 fL [facility] Monocytes (Bld) [#/Vol] 0.9 10*3/uL 0.0 - 0.9 10*3/uL [facility] Monocytes/100 WBC (Bld) 8.8 % 5.0 - 13.0 % [facility] Neutrophils (Bld) [#/Vol] 7.5 10*3/uL 1.8 - 7.5 10*3/uL [facility] Neutrophils/100 WBC (Bld) 77.7 % 38.0 - 82.0 % [facility] Nucleated RBC/100 WBC (Bld) [Ratio] 0.0 % [facility] Platelet mean volume (Bld) [Entitic vol] 8.8 fL Low 9.0 - 12.[address] [facility] Platelets (Bld) [#/Vol] 195 10*3/uL 140 - 440 10*3/uL [facility] RBC (Bld) [#/Vol] 3.36 10*6/uL Low 3.80 - 5.2 0 10*6/uL [facility] WBC (Bld) [#/Vol] 9.6 10*3/uL 3.6 - 10.7 10*3/uL [facility] CBC WITH AUTO DIFFERENTIALon 02-22-2024 Basophils (Bld) [#/Vol] 0.0 10*3/uL Normal 0.0-0.2 [facility] Comment on above: Performed By: #### L [id number] ####Service Coordinator: STEVIE ELMORE ([id number])[facility] [place] (SBHLAB)[address] Basophils/100 WBC (Bld) 0.2 % Normal 0.0-2.0 [facility] Comment on above: Performed By: #### L [id number] ####Service Coordinator: STEVIE ELMORE ([id number])[facility] [place] (SB[facility]AB)[address] Eosinophils (Bld) [#/Vol] 0.1 10*3/uL Normal 0.0-0.5 [facility] Comment on above: Performed By: #### L [id number] ####Service Coordinator: STEVIE ELMORE ([id number])[facility] [place] ([facility])155 [place] [address] [place] Eosinophils/100 WBC (Bld) 0.5 % Normal 0.0-6.0 [facility] Comment on above: Performed By: #### L [id number] ####Service Coordinator: STEVIE [id number])[facility] [place] (SBHLAB)[address] Erythrocyte distribution width (RBC) [Ratio] 15.6 % High 11.5-15.0 [facility] Comment on above: Performed By: #### L [id number] ####Service Coordinator: STEVIE ELMORE ([id number])[facility] [place] ([facility])[address] Hematocrit (Bld) [Volume fraction] 30.2 % Low 35.0-47.0 [facility] Comment on above: Performed By: #### L [id number] ####Service Coordinator: STEVIE ELMORE ([id number])[facility] [place] ([facility])[address] Hemoglobin (Bld) [Mass/Vol] 9.6 g/dL Low 11.7-16.0 [facility] Comment on above: Performed By: #### L [id number] ####Service Coordinator: STEVIE ELMORE ([id number])[facility] [place] ([facility])[address] IMMATURE GRANS % 3.3 % High 0.0-2.0 [facility] Comment on above: Performed By: #### L [id number] ####Service Coordinator: STEVIE ELMORE ([id number])[facility] [place] ([facility])[address] IMMATURE GRANS ABSOLUTE 0.3 10*3/uL High <0.1 [facility] Comment on above: Performed By: #### L [id number] ####Service Coordinator: STEVIE ELMORE ([id number])[facility] [place] ([facility])[address] Lymphocytes (Bld) [#/Vol] 0.9 10*3/uL Low 1.0-4.3 [facility] Comment on above: Performed By: #### L [id number] ####Service Coordinator: STEVIE ELMORE ([id number])[facility] [place] (SBHLAB)[address] Lymphocytes/100 WBC (Bld) 9.5 % Low 15.0-45.0 [facility] Comment on above: Performed By: #### L [id number] ####Service Coordinator: STEVIE ELMORE ([id number])[facility] [place] ([facility])[address] MCH (RBC) [Entitic mass] 28.6 pg Normal 26.0-34.0 [facility] Comment on above: Performed By: #### L [id number] ####Service Coordinator: STEVIE ELMORE ([id number])[facility] [place] (SBHLAB)[address] [place] [address] MCHC 31.8 % Normal 30.5-36.0 [facility] Comment on above: Performed By: #### L [id number] ####Service Coordinator: STEVIE ELMORE ([id number])[facility] [place] (SB[facility]AB)[address] [place] [address] MCV (RBC) [Entitic vol] 89.9 fL Normal 77.0-99.0 [facility] Comment on above: Performed By: #### L [id number] ####Service Coordinator: STEVIE ELMORE ([id number])[facility] [place] (SB[facility]AB)[address] [place] [address] Monocytes (Bld) [#/Vol] 0.9 10*3/uL Normal 0.0-0.9 [facility] Comment on above: Performed By: #### L [id number] ####Service Coordinator: STEVIE ELMORE ([id number])[facility] [place] ([facility])[address] Monocytes/100 WBC (Bld) 8.8 % Normal 5.0-13.0 [facility] Comment on above: Performed By: #### L [id number] ####Service Coordinator: STEVIE ELMORE ([id number])[facility] [place] ([facility])[address] NEUTROPHILS ABSOLUTE 7.5 10*3/uL Normal 1.8-7.5 [facility] Comment on above: Performed By: #### L [id number] ####Service Coordinator: STEVIE ELMORE ([id number])[facility] [place] ([facility])[address] Neutrophils/100 WBC (Bld) 77.7 % Normal 38.0-82.0 [facility] Comment on above: Performed By: #### L [id number] ####Service Coordinator: STEVIE ELMORE ([id number])[facility] [place] ([facility]AB)[address] NRBC 0.0 /100 WBCs Normal 0.0-2.0 [facility] Comment on above: Performed By: #### L [id number] ####Service Coordinator: STEVIE ELMORE ([id number])[facility] [place] (SB[facility]AB)[address] Platelet mean volume (Bld) [Entitic vol] 8.8 fL Low 9.0-12.7 [facility] Comment on above: Performed By: #### L [id number] ####Service Coordinator: STEVIE ELMORE ([id number])[facility] [place] (SB[facility]AB)155 [place] [address] [place] Platelets (Bld) [#/Vol] 195 10*3/uL Normal 140-440 [facility] Comment on above: Performed By: #### L [id number] ####Service Coordinator: STEVIE ELMORE ([id number])[facility] [place] (SB[facility]AB)[address] [place] [address] [place] RBC (Bld) [#/Vol] 3.36 10*6/uL Low 3.80-5.20 [facility] Comment on above: Performed By: #### L [id number] ####Service Coordinator: STEVIE ELMORE ([id number])[facility] [place] (SBHLAB)[address] WBC (Bld) [#/Vol] 9.6 10*3/uL Normal 3.6-10.7 [facility] Comment on above: Performed By: #### L [id number] ####Service Coordinator: STEVIE ELMORE ([id number])[facility] [place] (SB[facility]AB)[address] COMPREHENSIVE METABOLIC PANE Wade 02-22-2024 Albumin [Mass/Vol] 2.7 g/dL Low 3.5-5.0 [facility] Comment on above: Performed By: #### L AB103, LAB17 #### Service Coordinator: STEVIE ELMORE ([id number]) [facility] [place] ([facility]AB) [address] ALP [Catalytic activity/Vol] 75 U/L Normal 38-126 [facility] Comment on above: Performed By: #### L AB103, LAB17 #### Service Coordinator: STEVIE ELMORE ([id number]) [facility] [place] ([facility]) [address] ALT [Catalytic activity/Vol] 18 U/L Normal 0-34 [facility] Comment on above: Performed By: #### L AB103, LAB17 #### Service Coordinator: STEVIE ELMORE ([id number]) [facility] [place] (SBHLAB) [address] Anion gap [Moles/Vol] 5 mmol/L Normal 3-13 [facility] Comment on above: Performed By: #### L AB103, LAB17 #### Service Coordinator: STEVIE ELMORE ([id number]) [facility] [place] (SBHLAB) [address] [place] [address] [place] AST [Catalytic activity/Vol] 21 U/L Normal 15-46 [facility] Comment on above: Performed By: #### L AB103, LAB17 #### Service Coordinator: STEVIE ELMORE ([id number]) [facility] [place] ([facility]) [address] Bilirubin [Mass/Vol] 0.6 mg/dL Normal 0.2-1.3 [facility] Comment on above: Performed By: #### L AB103, LAB17 #### Service Coordinator: STEVIE ELMORE ([id number]) [facility] [place] (SB[facility]AB) [address] Calcium [Mass/Vol] 8.2 mg/dL Low 8.4-10.4 [facility] Comment on above: Performed By: #### L AB103, LAB17 #### Service Coordinator: STEVIE ELMORE ([id number]) [facility] [place] (SB[facility]) [address] Chloride [Moles/Vol] 99 mmol/L Normal 98-107 [facility] Comment on above: Performed By: #### L AB103, LAB17 #### Service Coordinator: STEVIE ELMORE ([id number]) [facility] [place] (SBHLAB) [address] [place] [address] [place] CO2 [Moles/Vol] 29 mmol/L Normal 22-30 [facility] Comment on above: Performed By: #### L AB103, LAB17 #### Service Coordinator: STEVIE ELMORE ([id number]) [facility] [place] (SBHLAB) [address] Creatinine [Mass/Vol] 1.17 mg/dL High 0.52-1.04 [facility] Comment on above: Performed By: #### L AB103, LAB17 #### Service Coordinator: STEVIE ELMORE ([id number]) [facility] (SBHLAB) [address] [place] [address] [place] GLOMERULAR FILTRATION RATE ML/MIN/1.73 SQ M.PREDICTED 51.6 mL/min/1.73m*2 Low >60.0 [facility] Comment on above: Result Comment: Calc ulation based on the Chronic Kidney Disease Epidemiology Collaboration (CKD-EPI) equation refit without adjustment for race Performed By: #### L AB103, LAB17 #### Service Coordinator: STEVIE ELMORE ([id number]) [facility] [place] ([facility]) [address] Glucose [Mass/Vol] 142 mg/dL High 70-100 [facility] Comment on above: Performed By: #### L AB103, LAB17 #### Service Coordinator: STEVIE ELMORE ([id number]) [facility] (SBHLAB) [address] Potassium [Moles/Vol] 3.9 mmol/L Normal 3.5-5.1 [facility] Comment on above: Performed By: #### L AB103, LAB17 #### Service Coordinator: STEVIE ELMORE ([id number]) [facility] (SBHLAB) [address] Protein [Mass/Vol] 5.3 g/dL Low 6.3-8.2 [facility] Comment on above: Performed By: #### L AB103, LAB17 #### Service Coordinator: STEVIE ELMORE ([id number]) [facility] (SBHLAB) [address] [place] [address] [place] Sodium [Moles/Vol] 132 mmol/L Low 135-145 [facility] Comment on above: Performed By: #### L AB103, LAB17 #### Service Coordinator: STEVIE ELMORE ([id number]) [facility] (SBHLAB) [address] [place] [address] [place] Urea nitrogen [Mass/Vol] 32 mg/dL High 7-17 [facility] Comment on above: Performed By: #### L AB103, LAB17 #### Service Coordinator: STEVIE ELMORE ([id number]) [facility] (SBHLAB) [address] Cobalamin (Vitamin B12) [Mas s/Vol]on 02-22-2024 Interpretation and review of laboratory results Normal [facility] Comprehensive metabolic 1998 panelon 02-22-2024 Albumin [Mass/Vol] 2.7 g/dL Low 3.5 - 5.0 g/dL [facility] ALP [Catalytic activity/Vol] 75 U/L 38 - 126 U/L [facility] ALT [Catalytic activity/Vol] 18 U/L 0 - 34 U/L [facility] Anion gap [Moles/Vol] 5 mmol/L 3 - 13 mmol/L [facility] AST [Catalytic activity/Vol] 21 U/L 15 - 46 U/L [facility] Bilirubin [Mass/Vol] 0.6 mg/dL 0.2 - 1 .3 mg/dL [facility] Calcium [Mass/Vol] 8.2 mg/dL Low 8.4 - 10. 4 mg/dL [facility] Chloride [Moles/Vol] 99 mmol/L 98 - 10 7 mmol/L [facility] CO2 [Moles/Vol] 29 mmol/L 22 - 30 mmol/L [facility] Creatinine [Mass/Vol] 1.17 mg/dL High 0.52 - 1.04 mg/dL [facility] GFR/1.73 sq M.predicted MDRD (S/P/Bld) [Vol rate/Area] 51.6 mL/min/{1.73_m2} Low - PINF [facility] th Glucose [Mass/Vol] 142 mg/dL High 70 - 100 mg/dL [facility] Interpretation and review of laboratory results Abnormal [facility] Potassium [Moles/Vol] 3.9 mmol/L 3.5 - 5.1 mmol/L [facility] Protein [Mass/Vol] 5.3 g/dL Low 6.3 - 8.2 g/dL [facility] Sodium [Moles/Vol] 132 mmol/L Low 135 - 145 mmol/L [facility] Urea nitrogen [Mass/Vol] 32 mg/dL High 7 - 17 mg/dL [facility] Consulton 02-22-2024 Consult [facility] CONSULT Note Kimberly Patel [...] Low air loss mattress at [facility] .patient denies being able to make independent body position changes. Does not have good appetite. No cough. Can not lay flat HOB has to be up more than 30 degrees. PAST MEDICAL HISTORY Active Ambulatory Problems Diagnosis Date Noted Physical debility 10/12/2021 Other hyperlipidemia 10/12/2021 CAD (coronary artery disease) 10/12/2021 Primary hypertension 10/12/2021 Neuropathy 10/12/2021 Bacteremia 10/12/2021 Acute kidney injury superimposed on CKD ([facility] ([facility] 10/12/2021 Type 2 diabetes mellitus with diabetic polyneuropathy, with long-term current use of insulin ([facility]) 10/12/2021 Bullous pemphigoid 11/17/2022 Acute on chronic diastolic congestive heart failure ([facility]) 08/22/2022 Bipolar disorder, most recent episode depressed ([facility] ([facility]) 02/22/2024 Resolved Ambulatory Problems Diagnosis Date Noted No Resolved Ambulatory Problems Past Medical History: Diagnosis Date CHF (congestive heart failure) ([facility]) COPD (chronic obstructive pulmonary disease) ([facility]) Diabetes mellitus ([facility]) PAST SURGICAL HISTORY Past Surgical History: Procedure [...] (fourteen) days. ergocalciferol (Vitamin D-2) 1.25 MG (43554 UT) capsule Take 1.25 mg by mouth [...] every 6 (more content not included)... Normal [facility] Consult [facility] - Infectious Diseases Attending Consult [...] History: Diagnosis Date CHF (congestive heart failure) ([facility]) COPD (chronic obstructive pulmonary disease) ([facility]) Diabetes mellitus ([facility]) Past Surgical History: Past Surgical History: Procedure [...] true Ra (more content not included)... Normal [facility] Consult [facility] Inpatient Consult Service Admission Date: [...] her recent symptoms. Discussed with bedside nursing program coordinator, they were able to change her this [...] Total Score: 0 Conversation with caregiver: daughter. Alexnadro Cote [phone] -states that patient experiences similar symptoms with UTI/blood stream infections -has had hallucinations with infections, but doesn't usually seem to distressing/disturbing -from mental health, at her baseline she is "good" - states she plays on her phone, doesn't do a lot of socializing, doesn't go down for activities, doesn't like the mohamud lift. Does return to baseline in between -at [facility] [place] - little over a year, doing ok there -no recent medication changes -does have bullous pemphigoid, goes to [employer] and has been much better controlled [...] Shmuel Cormier (more content not included)... Normal [facility] ECG 12-LEADon 02-22-2024 ECG 12-LEAD IMPRESSION: Sinus tachycardia with irregular rate Inferior infarct, old Anterior infarct, old Compared to ECG 04/30/22 Irregular rate now noted, likely PAC Electronically Signed On 02-22-2024 00:36:22 EDT by Keven Cano Normal [facility] HEMOGLOBIN A1Con 02-22-2024 Glucose [Mass/Vol] 154 mg/dL Normal [facility] Comment on above: Order Comment: If no t done within the last 3 mos Performed By: #### L AB103, LAB17 #### Service Coordinator: STEVIE ELMORE ([id number]) [facility] ([facility]) [address] HbA1c (Bld) [Mass fraction] 7.0 % High <5.7 [facility] Comment on above: Order Comment: If no t done within the last 3 mos Result Comment: Norm al less than 5.7% Prediabetes 5.7% to 6.4% Diabetes 6.5% or higher --HgbA1C levels may not be accurate in patients who have renal disease, received recent blood transfusions, are anemic, or who have dyshemoglobinemia. Performed By: #### L AB103, LAB17 #### Service Coordinator: STEVIE ELMORE ([id number]) [facility] [address] IDNon 02-22-2024 IDN The patient is Moderately Unstable - Medium risk of patient condition declining or worsening The patient's goals for the shift include rest The clinical goals for the shift include rest Over the shift, the patient did not make progress toward the following goals. Barriers to progression include infection. Recommendations to address these barriers include antibiotics. Normal [facility] Laboratory - Chemistry and C hemistry - challengeon 02-22-2024 Glucose [Mass/Vol] 156 mg/dL High 70 - 100 mg/dL [facility] Glucose [Mass/Vol] 168 mg/dL High 70 - 100 mg/dL [facility] Glucose [Mass/Vol] 116 mg/dL High 70 - 100 mg/dL [facility] Glucose [Mass/Vol] 150 mg/dL High 70 - 100 mg/dL [facility] Glucose [Mass/Vol] 148 mg/dL High 70 - 100 mg/dL [facility] Procalcitonin [Mass/Vol] 0.41 ng/mL High 0.00 - 0.09 ng/mL [facility] Cobalamin (Vitamin B12) [Mass/Vol] 294 pg/mL 239 - 931 pg/mL [facility] Average glucose Estimated from glycated hemoglobin (Bld) [Mass/Vol] 154 mg/dL [facility] TSH Qn 1.267 m[IU]/L [facility] Laboratory - Hematology and Cell countson 02-22-2024 HbA1c (Bld) [Mass fraction] 7.0 % High NINF - 5.7 % [facility] No Panel Informationon 02-21 Interpretation and review of laboratory results Abnormal [facility] Interpretation and review of laboratory results Abnormal [facility] Interpretation and review of laboratory results Abnormal [facility] Interpretation and review of laboratory results Abnormal [facility] Interpretation and review of laboratory results Abnormal [facility] Interpretation and review of laboratory results Abnormal [facility] CV EPIPHANY [facility] Radiology Study observation (narrative) [facility] Radiology Study observation (narrative) [facility] Radiology Study observation (narrative) [facility] Radiology Study observation (narrative) [facility] Radiology Study observation (narrative) [facility] No Panel InformationOrdered By: Disha Smith on 02-22-2024 CTX-M (ESBL gene) Detected Abnormal Not Detected [facility] Escherichia coli Detected Abnormal Not Detected [facility] Interpretation and review of laboratory results Abnormal [facility] No Panel InformationOrdered By: Keven Cano on 02-22-2024 P Stanley 7 degrees [facility] [employer] Work Phone: MI Interval [address] [facility] Work Phone: QRS Stanley -[address] [facility] Work Phone: QRSD Interval 77 ms [employer] Work Phone: QT Interval 338 ms [employer] Work Phone: QTC Interval 448 ms [employer] Work Phone: T Wave Stanley 79 degrees GRID Phone: [employer] Work Phone: PROCALCITONIN TESTon 024 PROCALCITONIN 0.41 ng/mL High 0.00-0.09 [employer] [facility] Comment on above: Result Comment: ORDE R COMMENTS: PCT <0.50 = Low risk of severe sepsis and/or septic shock. PCT >2.00 = High risk of severe sepsis and/or septic shock. Performed By: #### L AB103, LAB17 #### Service Coordinator: STEVIE ELMORE ([id number]) [facility] ([facility]) [address] [place] [address] Procalcitonin [Mass/Vol]on 0 02-22-2024 Interpretation and review of laboratory results Abnormal [employer] Progress Noteon 02-22-2024 Progress Note Nutrition Assessment [...] Unable to assess Fluid Accumulation: Mild Extremities Psychological Operations Specialist Strength: Not Performed Nutrition Assessment: 68 year old woman with PMHx: CAD, HLD, HTN, neuropathy, DMII(A1C=7.0% on 02/22/24). She presents to [facility] from SNF with AMS and reported 107*F [...] to support patient. Refused to work with AVIATION MAINTENANCE TECHNICIAN, at time of attempted assessment, noted maybe one bite taken from breakfast tray, otherwise tray untouched. Patient declined to participate in RDN assessment, stated she wanted ?to be left alone and sleep?. Bed scale weight obtained: 106.7 kg or 235.2#. Estimated Daily Nutrient Needs: Energy Requirements Based On: Kcal/kg Weight Used for Energy Requirements: Eugene Weight for Energy Calculation (kg): 57 kg Total Energy Requirements (kcals/day): 1425- 1710 (25-30 kcal/kg IBW) Weight Used for Protein Requirements: Weight in Kg Used for Protein Requirements: Estimated Total Protein (g/day): 57-68 (1.0-1.2 g protein/kg IBW) Estimated Daily Total Fluid (ml/day): per MD Nutrition Related Findings: Edward score=13. +1 BLE edema noted. Meds: aspirin, lipitor, PPI, rocephin, insulin, toprol. Labs reviewed. 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 Wound Type: Pressure Injury, Wound Consult Pending Current Nutrition Therapies: Adult diet Regular; 4 carb choices (60 gm/meal) Current Oral Intake Average Meal Intake: Refusing to eat Average Supplements Intake: Refusing to take Anthropometric Measures: Height: 165.1 cm (5' 5") Current Body Weight: 107 kg (235 lb 3.7 oz) Weight Source: Bed Scale Admission Body Weight: 133 kg (294 lb) (stated) Usual Body Weight: 114 kg (251 lb) (07/09/2023) % Weight Change (Calculated): -6.3 Eugene Body Weight (lbs) (Calculated): 125 lbs Eugene Body Weight (Kg) (Calculated): 57 kg % Eugene Body Weight (Calculated): 188.2 % BMI (kg/m2) [...] to determine Odalys Godinez RDN, LDN, Contact: *[phone] [facility] Progress Note OCCUPATIONAL THERAPY [facility] Name/MRN: Kimberly Patel ([id number]) Date: 02/22/2024 Chart reviewed. Spoke with [facility], she reports pt from SNF, is bed bound at baseline, [place], and is total care. Will discharge from caseload, pt dependent Zee Gresham OT [facility] Progress Note [phone]: Please [facility] ([phone]) for patient care issues. [phone]: Please page [facility] Hospitalist for any issues. Subjective: Admit Date: 02/21/2024 PCP: Lucy Quick Room#: [id number]/[id number] A Kimberly Patel is a 68 y.o. female who presents with Sphenoid sinusitis, unspecified chronicity Interval History: No overnight issues. Denies chest pain, sob, abdominal pain, nausea, vomiting, diarrhea, constipation, fevers, or chills. Adult diet Regular; 4 carb choices (60 gm/meal) 24HR INTAKE/OUTPUT: No intake or output data in the 24 hours ending 02/22/24 1109 LABS: CBC: Recent Labs 02/21/244 02/22/24 0407 WBC 15.2* 9.6 RBC 3.51* 3.36* HGB 10.0* 9.6* HCT 31.3* 30.2* MCV 89.2 89.9 RDW 15.8* 15.6* PLT 201 195 BMP: Recent Labs 02/21/24 1124 02/22/24406 NA 134* 132* K 4.3 3.9 CL 98 99 CO2 32* 29 BUN 44* 32* CREATININE 1.29* 1.17* GLUCOSE 148* 142* CALCIUM 8.7 8.2* ANIONGAP 4 5 LIVER PROFILE: Recent Labs 02/21/244 02/22/24406 AST 21 21 ALT 19 18 BILITOT [...] (98.2 ?F) (Temporal) Resp 17 Ht 5' 5" (1.651 m) Wt 293 lb 3.4 oz [...] the following -clinical improvement, clearance of bacteremia, spa consultant recommendations, workup Total time spent (which include face to face and non face to face encounters) : 52 minutes Toxic drug monitoring/narrow therapeutic index drug monitoring : # Drug name : # Route administered : # Method of monitoring : Extended Emergency Contact Information Primary Emergency Contact: Alexandro Cote Mobile Relation: Daughter Preferred language: Nigerian Food Concession Manager needed? No Advance Directive: Full Code Discharge planning: TATID CLARE DEL CID MD Division of Hospitalist Medicine Inpatient Medical Services/[facility] Progress Note PHYSICAL THERAPY [facility] Name/MRN: Kimberly Patel ([id number]) Date: 02/22/2024 Chart reviewed. Spoke with [facility], she reports pt from SNF, is bed bound at baseline, [place], and is total care. Will discharge from caseload, pt dependent Moe Mcelroy, PT Normal [facility] Progress Note OCCUPATIONAL THERAPY [facility]'s Name/MRN: Kimberly Patel ([id number]) Date: 02/22/2024 Chart reviewed. Introduced self and role, pt declines therapy adamantly. Will re-attempt as schedule permits Zee Gresham, OT Normal [facility] Progress Note PHYSICAL THERAPY [facility] Name/MRN: Kimberly Patel ([id number]) Date: 02/22/2024 Chart reviewed. Introduced self and role, pt declines therapy adamantly. Will re-attempt as schedule permits Moe Mcelroy, PT Normal [facility] Progress Note Speech-Language Pathology Pt's chart reviewed. Admitted with AMS and fever. Pt on CON, CHO, NSP Regular thin diet per MAR from nursing facility. Order acknowledged for Bedside swallowing evaluation. Pt deferred at this time. "I will eat when I'm ready." I'm tired and going to sleep". ST will continue to follow as appropriate. Normal [facility] THYROID STIMULATING HORMONEo n 02-22-2024 THYROID STIMULATING HORMONE 1.267 uIU/mL Normal 0.465-4.680 [facility] Comment on above: Performed By: #### L AB103, LAB17 #### Service Coordinator: STEVIE ELMORE ([id number]) [facility] ([facility]) [address] [place] [address] TSH Qnon 02-22-2024 Interpretation and review of laboratory results Normal [facility] Kidneyon 02-22-2024 [facility] RADIOLOGY [facility] KidneyOrdered By: Edwin johnson on 02-22-2024 [facility] Work Phone: US RENAL COMPLETEon 02-22-20 24 [...] Signed Date/Time: 02/22/2024 6:06 PM EDT Normal [facility] VITAMIN B12on 02-22-2024 Cobalamin (Vitamin B12) [Mass/Vol] 294 pg/mL Normal 239-931 [facility] Comment on above: Performed By: #### L AB103, LAB17 #### Service Coordinator: STEVIE ELMORE ([phone]) [facility] ([facility]) [address] [place] [address] Vital signsOrdered By: Lory Cano on 02-22-2024 Heart rate 106 /min bpm [facility] [employer] Work Phone: BLOOD CULTUREon 02-21-2024 Bacteria identified [...] Non-susceptible NO = No Interpretation ] [facility] Comment on above: Performed By: #### L [id number], [id number] ####Service Coordinator: SILVIA FRENCH ([phone])[address] BLOOD CULTURE IDENTIFICATION - ANAEROBICon 02-21-2024 BLOOD CULTURE IDENTIFICATION - ANAEROBIC ESCHERICHIA COLI, BLOOD (A) Reference Detected Not Detected CTX-M ESBL, BLOOD (A) Reference Detected Not Detected ORDER COMMENTS: (A) Methodology: Multiplex PCR The [employer] BCID panel can detect the following organisms: [...] IMP, KPC, NDM, OXA-48-like, VIM, and mcr-1. [facility] Comment on above: Performed By: #### L [id number], [id number] ####Service Coordinator: SILVIA FRENCH ([phone])[facility] ([facility])[address] [place] [address] CBC W Auto Differential pane l (Bld)on 02-21-2024 Basophils (Bld) [#/Vol] 0.0 10*3/uL 0.0 - 0.2 10*3/uL [facility] Basophils/100 WBC (Bld) 0.2 % 0.0 - 2.0 % [facility] Eosinophils (Bld) [#/Vol] 0.1 10*3/uL 0.0 - 0.5 10*3/uL [facility] Eosinophils/100 WBC (Bld) 0.4 % 0.0 - 6.0 % [facility] Erythrocyte distribution width (RBC) [Ratio] 15.8 % High 11.5 - 15.0 % [facility] Hematocrit (Bld) [Volume fraction] 31.3 % Low 35.0 - 47.0 % [facility] Hemoglobin (Bld) [Mass/Vol] 10.0 g/dL Low 11.7 - 16.0 g/dL [facility] [employer] Immature granulocytes (Bld) [#/Vol] 0.4 10*3/uL High NINF - 0.1 10*3/uL [facility] Immature granulocytes/100 WBC (Bld) 2.4 % High 0.0 - 2.0 % [facility] Interpretation and review of laboratory results Abnormal [facility] Lymphocytes (Bld) [#/Vol] 1.0 10*3/uL 1.0 - 4.3 10*3/uL [facility] Lymphocytes/100 WBC (Bld) 6.3 % Low 15.0 - 45.0 % [facility] MCH (RBC) [Entitic mass] 28.5 pg 26.0 - 34.0 pg [facility] MCHC (RBC) [Mass/Vol] 31.9 % 30.5 - 36.0 % [facility] MCV (RBC) [Entitic vol] 89.2 fL 77.0 - 99.0 fL [facility] Monocytes (Bld) [#/Vol] 1.3 10*3/uL High 0.0 - 0.9 10*3/uL [facility] Monocytes/100 WBC (Bld) 8.3 % 5.0 - 13.0 % [facility] Neutrophils (Bld) [#/Vol] 12.5 10*3/uL High 1.8 - 7.5 10*3/uL [facility] Neutrophils/100 WBC (Bld) 82.4 % High 38.0 - 82.0 % [facility] Nucleated RBC/100 WBC (Bld) [Ratio] 0.0 % [facility] Platelet mean volume (Bld) [Entitic vol] 8.5 fL Low 9.0 - 12.[address] [facility] Platelets (Bld) [#/Vol] 201 10*3/uL 140 - 440 10*3/uL [facility] RBC (Bld) [#/Vol] 3.51 10*6/uL Low 3.80 - 5.2 0 10*6/uL [facility] WBC (Bld) [#/Vol] 15.2 10*3/uL High 3.6 - 10.7 10*3/uL [facility] CBC WITH AUTO DIFFERENTIALon 02-21-2024 Basophils (Bld) [#/Vol] 0.0 10*3/uL Normal 0.0-0.2 [facility] Comment on above: Performed By: #### L [id number] ####Service Coordinator: STEVIE ELMORE ([phone])[facility] ([facility])[address] [place] [address] Basophils/100 WBC (Bld) 0.2 % Normal 0.0-2.0 [facility] Comment on above: Performed By: #### L [id number] ####Service Coordinator: STEVIE ELMORE ([phone])[facility] Eosinophils (Bld) [#/Vol] 0.1 10*3/uL Normal 0.0-0.5 [facility] Comment on above: Performed By: #### L [id number] ####Service Coordinator: STEVIE ELMORE ([id number])[facility] ([facility])[address] Eosinophils/100 WBC (Bld) 0.4 % Normal 0.0-6.0 [facility] Comment on above: Performed By: #### L [id number] ####Service Coordinator: STEVIE PUTNAMPERICO ([phone])[facility] [place] [address] Erythrocyte distribution width (RBC) [Ratio] 15.8 % High 11.5-15.0 [facility] Comment on above: Performed By: #### L [id number] ####Service Coordinator: STEVIE PUTNAMPERICO ([phone])[facility] Hematocrit (Bld) [Volume fraction] 31.3 % Low 35.0-47.0 [facility] Comment on above: Performed By: #### L [id number] ####Service Coordinator: STEVIE MOYAFAHAD ([phone])[facility] ([facility])[address] [place] [address] Hemoglobin (Bld) [Mass/Vol] 10.0 g/dL Low 11.7-16.0 [facility] Comment on above: Performed By: #### L [id number] ####Service Coordinator: STEVIE ELMORE ([id number])[facility] ([facility])[address] [place] [address] IMMATURE GRANS % 2.4 % High 0.0-2.0 [facility] Comment on above: Performed By: #### L [id number] ####Service Coordinator: STEVIE ELMORE ([phone])[facility] ([facility])[address] [place] [address] IMMATURE GRANS ABSOLUTE 0.4 10*3/uL High <0.1 [facility] Comment on above: Performed By: #### L [id number] ####Service Coordinator: STEVIE ELMORE ([id number])[facility] ([facility])[address] [place] [address] Lymphocytes (Bld) [#/Vol] 1.0 10*3/uL Normal 1.0-4.3 [facility] Comment on above: Performed By: #### L [id number] ####Service Coordinator: STEVIE MOYASuPERICO ([phone])[facility] ([facility])[address] Lymphocytes/100 WBC (Bld) 6.3 % Low 15.0-45.0 [facility] Comment on above: Performed By: #### L [id number] ####Service Coordinator: STEVIE MOYASuPERICO ([phone])[facility] ([facility])[address] MCH (RBC) [Entitic mass] 28.5 pg Normal 26.0-34.0 [facility] Comment on above: Performed By: #### L [id number] ####Service Coordinator: STEVIE CATARINA ([id number])[facility] ([facility])[address] MCHC 31.9 % Normal 30.5-36.0 [facility] Comment on above: Performed By: #### L [id number] ####Service Coordinator: STEVIE MOYASuPERICO ([id number])[facility] ([facility])[address] MCV (RBC) [Entitic vol] 89.2 fL Normal 77.0-99.0 [facility] Comment on above: Performed By: #### L [id number] ####Service Coordinator: STEVIE ELMORE ([id number])[facility] ([facility])[address] Monocytes (Bld) [#/Vol] 1.3 10*3/uL High 0.0-0.9 [facility] Comment on above: Performed By: #### L [id number] ####Service Coordinator: STEVIE ELMORE ([phone])[facility] ([facility])[address] Monocytes/100 WBC (Bld) 8.3 % Normal 5.0-13.0 [facility] Comment on above: Performed By: #### L [id number] ####Service Coordinator: STEVIE CATARINA ([phone])[facility] [place] ([facility])[address] NEUTROPHILS ABSOLUTE 12.5 10*3/uL High 1.8-7.5 [facility] Comment on above: Performed By: #### L [id number] ####Service Coordinator: STEVIE PUTNAMPERICO ([phone])[facility] [place] ([facility])[address] Neutrophils/100 WBC (Bld) 82.4 % High 38.0-82.0 [facility] Comment on above: Performed By: #### L [id number] ####Service Coordinator: STEVIE CATARINA ([id number])[facility] [place] ([facility])[address] NRBC 0.0 /100 WBCs Normal 0.0-2.0 [facility] Comment on above: Performed By: #### L [id number] ####Service Coordinator: STEVIE PUTNAMPERICO ([id number])[facility] [place] ([facility])[address] Platelet mean volume (Bld) [Entitic vol] 8.5 fL Low 9.0-12.7 [facility] Comment on above: Performed By: #### L [id number] ####Service Coordinator: STEVIE ELMORE ([id number])[facility] [place] ([facility])[address] Platelets (Bld) [#/Vol] 201 10*3/uL Normal 140-440 [facility] Comment on above: Performed By: #### L [id number] ####Service Coordinator: STEVIE PUTNAMPERICO ([phone])[facility] [place] ([facility])[address] RBC (Bld) [#/Vol] 3.51 10*6/uL Low 3.80-5.20 [facility] Comment on above: Performed By: #### L [id number] ####Service Coordinator: STEVIE ELMORE ([phone])[facility] [place] ([facility])[address] WBC (Bld) [#/Vol] 15.2 10*3/uL High 3.6-10.7 [facility] Comment on above: Performed By: #### L [id number] ####Service Coordinator: STEVIE ELMORE ([id number])[facility] [place] ([facility])[address] COMPLETE URINALYSISon 2023 BACTERIA (#/HPF) IN URINE Moderate Abnormal Negative [facility] Comment on above: Performed By: #### L [id number] ####Service Coordinator: STEVIE ELMORE ([phone])[facility] ([facility])[address] BILIRUBIN, TOTAL PRESENCE IN URINE Negative Normal Negative [facility] Comment on above: Performed By: #### L [id number] ####Service Coordinator: STEVIE ELMORE ([id number])[facility] [place] ([facility])[address] Clarity (U) Turbid Abnormal Clear [facility] Comment on above: Performed By: #### L [id number] ####Service Coordinator: STEVIE ELMORE ([phone])[facility] [place] ([facility])[address] Color (U) Yellow Normal Lt. Yellow [facility] Comment on above: Performed By: #### L [id number] ####Service Coordinator: STEVIE ELMORE ([phone])[facility] [place] ([facility])[address] GLUCOSE (MG/DL) IN URINE Normal Normal Normal (<70) [facility] Comment on above: Performed By: #### L [id number] ####Service Coordinator: STEVIE ELMORE ([phone])[facility] [place] ([facility])[address] HEMOGLOBIN PRESENCE IN URINE 0.2 mg/dL Abnormal Negative [facility] Comment on above: Performed By: #### L [id number] ####Service Coordinator: STEVIE PUTNAMPERICO ([id number])[facility] ([facility])[address] Ketones Ql (U) Negative Normal Negative [facility] Comment on above: Performed By: #### L [id number] ####Service Coordinator: STEVIE PUTNAMPERICO ([id number])[facility] ([facility])[address] LEUKOCYTE ESTERASE PRESENCE IN URINE BY TEST STRIP 500 Ha/uL Abnormal Negative [facility] Comment on above: Performed By: #### L [id number] ####Service Coordinator: STEVIE ELMORE ([phone])[facility] ([facility])[address] MUCUS (#/LPF) IN URINE SEDIMENT Few Normal Negative [facility] Comment on above: Performed By: #### L [id number] ####Service Coordinator: STEVIE PUTNAMPERICO ([id number])[facility] ([facility])[address] NITRITE PRESENCE IN URINE Positive Abnormal Negative [facility] Comment on above: Performed By: #### L [id number] ####Service Coordinator: STEVIE ELMORE ([id number])[facility] ([facility])[address] pH (U) 6.0 [pH] Normal 5.0-8.0 [facility] Comment on above: Performed By: #### L [id number] ####Service Coordinator: STEVIE PUTNAMPERICO ([id number])[facility] ([facility])[address] Protein (U) [Mass/Vol] 30 mg/dL Abnormal Negative [facility] Comment on above: Performed By: #### L [id number] ####Service Coordinator: STEVIE ELMORE ([id number])[facility] [place] ([facility])[address] RBC (#/HPF) IN URINE SEDIMENT 6-10 Abnormal 0-2 [facility] Comment on above: Performed By: #### L [id number] ####Service Coordinator: STEVIE ELMORE ([id number])[facility] [place] ([facility])[address] Specific gravity (U) [Rel density] 1.046 High 1.005-1.030 [facility] Comment on above: Performed By: #### L [id number] ####Service Coordinator: STEVIE ELMORE ([id number])[facility] [place] ([facility])[address] SQUAMOUS EPITHELIAL CELLS (#/HPF) IN URINE SEDIMENT 6-10 Abnormal 3-5 [facility] Comment on above: Performed By: #### L [id number] ####Service Coordinator: STEVIE ELMORE ([id number])[facility] [place] ([facility])[address] UROBILINOGEN (MG/DL) IN URINE Normal Normal Normal (0-1) [facility] Comment on above: Performed By: #### L [id number] ####Service Coordinator: STEVIE ELMORE ([id number])[facility] [place] ([facility])[address] WBC (LEUKOCYTE) (#/HPF) IN URINE SEDIMENT >100 Abnormal 0-5 [facility] Comment on above: Performed By: #### L [id number] ####Service Coordinator: STEVIE PUTNAMPERICO ([id number])[facility] [place] ([facility])[address] COMPREHENSIVE METABOLIC PANE Wade 02-21-2024 Albumin [Mass/Vol] 2.9 g/dL Low 3.5-5.0 [facility] Comment on above: Performed By: #### L AB103, LAB17 #### Service Coordinator: STEVIE ELMORE ([id number]) [facility] [place] ([facility]) [address] [place] [address] [place] ALP [Catalytic activity/Vol] 78 U/L Normal 38-126 [facility] Comment on above: Performed By: #### L AB103, LAB17 #### Service Coordinator: STEVIE ELMORE ([id number]) [facility] ([facility]) [address] [place] [address] [place] ALT [Catalytic activity/Vol] 19 U/L Normal 0-34 [facility] Comment on above: Performed By: #### L AB103, LAB17 #### Service Coordinator: STEVIE ELMORE ([id number]) [facility] ([facility]) [address] Anion gap [Moles/Vol] 4 mmol/L Normal 3-13 [facility] Comment on above: Performed By: #### L AB103, LAB17 #### Service Coordinator: STEVIE ELMORE ([id number]) [facility] ([facility] [address] [place] [address] [place] AST [Catalytic activity/Vol] 21 U/L Normal 15-46 [facility] Comment on above: Performed By: #### L AB103, LAB17 #### Service Coordinator: STEVIE ELMORE ([id number]) [facility] ([facility]) [address] [place] [address] [place] Bilirubin [Mass/Vol] 0.6 mg/dL Normal 0.2-1.3 [facility] Comment on above: Performed By: #### L AB103, LAB17 #### Service Coordinator: STEVIE ELMORE ([phone]) [facility] [place] ([facility]) [address] [place] [address] [place] Calcium [Mass/Vol] 8.7 mg/dL Normal 8.4-10.4 [facility] Comment on above: Performed By: #### L AB103, LAB17 #### Service Coordinator: STEVIE ELMORE ([id number]) [facility] [place] ([facility]) [address] Chloride [Moles/Vol] 98 mmol/L Normal 98-107 [facility] Comment on above: Performed By: #### L AB103, LAB17 #### Service Coordinator: STEVIE ELMORE ([id number]) [facility] ([facility]) [address] CO2 [Moles/Vol] 32 mmol/L High 22-30 [facility] Comment on above: Performed By: #### L AB103, LAB17 #### Service Coordinator: STEVIE ELMORE ([id number]) [facility] ([facility]) [address] Creatinine [Mass/Vol] 1.29 mg/dL High 0.52-1.04 [facility] Comment on above: Performed By: #### L AB103, LAB17 #### Service Coordinator: STEVIE ELMORE ([phone]) [facility] ([facility]) [address] GLOMERULAR FILTRATION RATE ML/MIN/1.73 SQ M.PREDICTED 45.9 mL/min/1.73m*2 Low >60.0 [facility] Comment on above: Result Comment: Calc ulation based on the Chronic Kidney Disease Epidemiology Collaboration (CKD-EPI) equation refit without adjustment for race Performed By: #### L AB103, LAB17 #### Service Coordinator: STEVIE ELMORE ([phone]) [facility] ([facility]) [address] Glucose [Mass/Vol] 148 mg/dL High 70-100 [facility] Comment on above: Performed By: #### L AB103, LAB17 #### Service Coordinator: STEVIE ELMORE ([id number]) [facility] ([facility]) [address] Potassium [Moles/Vol] 4.3 mmol/L Normal 3.5-5.1 [facility] Comment on above: Performed By: #### L AB103, LAB17 #### Service Coordinator: STEVIE CATARINA ([id number]) [facility] ([facility]) [address] Protein [Mass/Vol] 5.7 g/dL Low 6.3-8.2 [facility] Comment on above: Performed By: #### L AB103, LAB17 #### Service Coordinator: STEVIE MOYAFAHAD ([id number]) [facility] ([facility]) [address] Sodium [Moles/Vol] 134 mmol/L Low 135-145 [facility] Comment on above: Performed By: #### L AB103, LAB17 #### Service Coordinator: STEVIE MOYAFAHAD ([id number]) [facility] ([facility]) [address] Urea nitrogen [Mass/Vol] 44 mg/dL High 7-17 [facility] Comment on above: Performed By: #### L AB103, LAB17 #### Service Coordinator: STEVIE CATARINA ([id number]) [facility] ([facility]) [address] COVID-19, Flu A/B, and RSV C omboon 02-21-2024 Interpretation and review of laboratory results Normal [facility] CT CHEST ANGIOGRAM W AND/OR WO IV CONTRASTon 02-21-2024 CT CHEST ANGIOGRAM W AND/OR WO IV CONTRAST Patient Name: KIMBERLY PATEL : 1955 [facility] Manort#: [id number] Exam Date/Time: 02/21/2024 13:41 Procedure: CT CHEST [...] 1:56 PM EDT Fever, elevated d-dimer Normal [facility] CT HEAD WO IV CONTRASTon CT HEAD WO IV CONTRAST Patient Name: KIMBERLY MATA : 1955 [facility] Manort#: [id number] Exam Date/Time: 02/21/2024 11:44 Procedure: CT HEAD [...] Pt 98.1 when vitals taken here. Normal [facility] CT Head WO contraston 2023 [facility] RADIOLOGY [facility] Radiology Study observation (narrative) Gloria Sims alth CT Head WO contrastOrdered B y: Frankie Patel on 02-21-2024 [facility] Work Phone: CTA Chest vessels WO and W c ontrast Will 02-21-2024 [facility] Radiology Study observation (narrative) [facility] Comprehensive metabolic 1998 panelon 02-21-2024 Albumin [Mass/Vol] 2.9 g/dL Low 3.5 - 5.0 g/dL [facility] ALP [Catalytic activity/Vol] 78 U/L 38 - 126 U/L [facility] ALT [Catalytic activity/Vol] 19 U/L 0 - 34 U/L [facility] Anion gap [Moles/Vol] 4 mmol/L 3 - 13 mmol/L [facility] AST [Catalytic activity/Vol] 21 U/L 15 - 46 U/L [facility] Bilirubin [Mass/Vol] 0.6 mg/dL 0.2 - 1 .3 mg/dL [facility] Calcium [Mass/Vol] 8.7 mg/dL 8.4 - 10. 4 mg/dL [facility] Chloride [Moles/Vol] 98 mmol/L 98 - 10 7 mmol/L [facility] CO2 [Moles/Vol] 32 mmol/L High 22 - 30 mmol/L [facility] Creatinine [Mass/Vol] 1.29 mg/dL High 0.52 - 1.04 mg/dL [facility] GFR/1.73 sq M.predicted MDRD (S/P/Bld) [Vol rate/Area] 45.9 mL/min/{1.73_m2} Low - PINF [facility] Glucose [Mass/Vol] 148 mg/dL High 70 - 100 mg/dL [facility] Interpretation and review of laboratory results Abnormal [facility] Potassium [Moles/Vol] 4.3 mmol/L 3.5 - 5.1 mmol/L [facility] Protein [Mass/Vol] 5.7 g/dL Low 6.3 - 8.2 g/dL [facility] Sodium [Moles/Vol] 134 mmol/L Low 135 - 145 mmol/L [facility] Urea nitrogen [Mass/Vol] 44 mg/dL High 7 - 17 mg/dL [facility] D-DIMER,QUANTITATIVEon 02-20 D-DIMER, INNOVANCE 0.91 mg/L High <0.50 [facility] Comment on above: Result Comment: PARUL Ponce COMMENTS: [employer] D-Dimer values of <0.50 mg/L FEU can be used in combination with a pre-test probability model (e.g. Well's) to exclude pulmonary embolism (PE) disease, as well as an aid in the diagnosis of deep vein thrombosis (DVT). Performed By: #### L AB313, SIC314 ####Service Coordinator: STEVIE ELMORE ([phone])[facility] ([facility])[address] [place] [address] ED Nursing Noteon 02-21-2024 ED Nursing Note This RN spoke with patient at this time. Patient educated on the in and out of confusion that she has experienced and the results of UA. Patient educated that physician aware that she would like to speak with them. Patient agrees to stay at this time. Anoop Osborne RN 02/21/242113 Normal [facility] ED Nursing Note Upon this RN going t o patient room to assist on getting ready for transport, patient began speaking incomprehensible wording. Patient not making sense to this RN. Patient baseline is A&Ox3. Patient asked this RN to "Shut the front door as you come in to the barn". ED physician made aware, as well as transport. Anoop Osborne RN 02/21/24 1815 Normal [facility] ED Nursing Note This RN asked patien t to check to ensure proper placement of pure wick for urine collection. Patient refused. Anoop Osborne RN 02/21/24 1701 [facility] ED Nursing Note Patient to CT/XR via bed at this time. Anoop Osborne RN 02/21/24 1142 Normal [facility] ED Nursing Note Second set of cultur es drawn at this time and left at bedside, awaiting orders. Anoop Osborne RN 02/21/24 1535 [facility] ED Nursing Note SNF sends patient by ambulance due to mental status change and fever of 107F. Patient was given PO Tylenol 1000mg. [facility] ED Provider Noteon ED Provider Note [...] Acute kidney injury superimposed on CKD (HCC) ([facility]) ? Type 2 diabetes mellitus with diabetic polyneuropathy, with long-term current use of insulin ([facility]) CURRENT MEDICATIONS Previous Medications No medications on [...] Sensation is intact. Motor: No tremor. Coordination: [id number] Test normal. Psychiatric: Attention and Perception: Perception [...] Patel MD (more content not included)... Normal [facility] ED Provider Note Patient seen and [...] treatment. Janie Finch MD 02/21/24 1811 Normal [facility] Fibrin D-dimer FEU (PPP) [Ma ss/Vol]on 02-21-2024 Interpretation and review of laboratory results Abnormal [facility] LACTIC ACID WITH REFLEXon Lactate [Moles/Vol] 2.0 mmol/L Normal 0.7-2.0 [facility] Comment on above: Performed By: #### L [id number], [id number] #### Service Coordinator: STEVIE ELMORE ([id number]) [facility] ([facility]) [address] [place] [address] Laboratory - Chemistry and C hemistry - challengeon 02-21-2024 Glucose [Mass/Vol] 138 mg/dL High 70 - 100 mg/dL [facility] Troponin I.cardiac [Mass/Vol] 0.052 ng/mL High NINF - 0.034 ng/mL [facility] Glucose [Mass/Vol] 141 mg/dL High 70 - 100 mg/dL [facility] Troponin I.cardiac [Mass/Vol] 0.049 ng/mL High NINF - 0.034 ng/mL [facility] TSH Qn 2.113 m[IU]/L [facility] Troponin I.cardiac [Mass/Vol] 0.047 ng/mL High NINF - 0.034 ng/mL [facility] Base excess Calc (BldV) [Moles/Vol] 4.7 mmol/L High -3 - 3 mmol/L [facility] CO2 (BldV) [Partial pressure] 59.7 mm[Hg] High [facility] HCO3 (Bld) [Moles/Vol] 33.9 mmol/L High 23.0 - 27.0 mmol/L [facility] Oxygen (BldV) [Partial pressure] 34.8 mm[Hg] mm Hg [facility] pH (BldV) 7.363 [pH] 7.330 - 7.[address] [facility] Magnesium [Mass/Vol] 1.9 mg/dL 1.6 - 2 .3 mg/dL [facility] Lactate [Moles/Vol] 2.0 mmol/L 0.7 - 2. 0 mmol/L [facility] Glucose [Mass/Vol] 150 mg/dL [facility] Glucose [Mass/Vol] 150 mg/dL High 70 - 100 mg/dL [facility] Laboratory - Coagulationon 0 02-21-2024 Fibrin D-dimer FEU (PPP) [Mass/Vol] 0.91 mg/L High NINF - 0.50 mg/L [facility] PT Coag (Bld) [Time] 10.5 s 9.0 - [address] [facility] Laboratory - Microbiology an d Antimicrobial susceptibilityon 02-21-2024 FLUAV RNA IGGY+probe Ql (Resp) Not detected Not Detected [facility] FLUBV RNA IGGY+probe Ql (Resp) Not detected Not Detected [facility] RSV RNA IGGY+probe Ql (Resp) Not detected Not Detected [facility] SARS-CoV-2 (COVID-19) RNA IGGY+probe Ql (Resp) Not detected Not Detected [facility] MAGNESIUMon 02-21-2024 Magnesium [Mass/Vol] 1.9 mg/dL Normal 1.6-2.3 [facility] Comment on above: Performed By: #### L [id number], [id number] #### Service Coordinator: STEVIE ELMORE ([phone]) [facility] ([facility]) [address] Magnesium [Mass/Vol]on 02-20 Interpretation and review of laboratory results Normal [facility] NT PRO BNPon 02-21-2024 Natriuretic peptide B (Bld) [Mass/Vol] 1320 pg/mL High <20-300 [facility] Comment on above: Performed By: #### L [id number], [id number] #### Service Coordinator: STEVIE ELMORE ([phone]) [facility] ([facility]) [address] Natriuretic peptide B [Mass/ Vol]on 02-21-2024 Natriuretic peptide B (Bld) [Mass/Vol] 1320 pg/mL High <20 - 300 [facility] No Panel Informationon 02-20 Interpretation and review of laboratory results Abnormal [facility] Interpretation and review of laboratory results Abnormal [facility] CV CPACS Interpretation and review of laboratory results Abnormal [facility] Interpretation and review of laboratory results Abnormal [facility] Interpretation and review of laboratory results Normal [facility] Interpretation and review of laboratory results Normal [facility] Interpretation and review of laboratory results Abnormal [facility] Radiology Study observation (narrative) [facility] Radiology Study observation (narrative) [facility] Radiology Study observation (narrative) [facility] Radiology Study observation (narrative) [facility] Radiology Study observation (narrative) [facility] PROTHROMBIN TIMEon INR Coag (PPP) [Relative time] 1.0 {INR} Normal 0.9-1.1 [facility] Comment on above: Result Comment: Ino [...] Myocardial Infarction Performed By: #### L [id number], [id number] ####Service Coordinator: STEVIE ELMORE ([phone])[facility] ([facility])[address] PT Coag (PPP) [Time] 10.5 s Normal 9.0-12.0 [facility] Comment on above: Performed By: #### L [id number], [id number] ####Service Coordinator: STEVIE ELMORE ([phone])[facility] ([facility])[address] PT Coag (Bld) [Time]on 02-20 INR Coag (PPP) [Relative time] 1.0 {INR} 0.9 - 1.1 [facility] Interpretation and review of laboratory results Normal [facility] SARS-COV-2, FLU A/B, AND RSV COMBOon 02-21-2024 [...] In compliance with this authorization, please visit www.fda.gov/media/85246 5/download or www.fda.gov/media/59515 6/download to access the applicable information sheets. Normal [facility] Comment on above: Performed By: #### L [id number] ####Service Coordinator: STEVIE ELMORE ([id number])[facility] ([facility])[address] THYROID STIMULATING HORMONEo n 02-21-2024 THYROID STIMULATING HORMONE 2.113 uIU/mL Normal 0.465-4.680 [facility] Comment on above: Performed By: #### L AB103, LAB17 #### Service Coordinator: STEVIE ELMORE ([phone]) [facility] ([facility]) [address] [place] [address] [place] TROPONIN Ion 02-21-2024 Troponin I.cardiac [Mass/Vol] 0.052 ng/mL High <0.034 [facility] Comment on above: Result Comment: PARUL Ponce COMMENTS: Patients with high levels of Biotin oral intake (ie >5 mg/day) may have falsely decreased Troponin levels. Performed By: #### L AB103, LAB17 #### Service Coordinator: STEVIE ELMORE ([phone]) [facility] ([facility]) [address] [place] [address] Troponin I.cardiac [Mass/Vol] 0.049 ng/mL High <0.034 [facility] Comment on above: Result Comment: PARUL Ponce COMMENTS: Patients with high levels of Biotin oral intake (ie >5 mg/day) may have falsely decreased Troponin levels. Performed By: #### L AB103, LAB17 #### Service Coordinator: STEVIE ELMORE ([phone]) [facility] ([facility]) [address] [place] [address] [place] TROPONIN, WITH SERIAL REFLEX on 02-21-2024 Troponin I.cardiac [Mass/Vol] 0.047 ng/mL High <0.034 [facility] Comment on above: Result Comment: PARUL Ponce COMMENTS: Patients with high levels of Biotin oral intake (ie >5 mg/day) may have falsely decreased Troponin levels. Performed By: #### L AB103, LAB17 #### Service Coordinator: STEVIE ELMORE ([phone]) [facility] ([facility]) [address] [place] [address] [place] TSH Qnon 02-21-2024 Interpretation and review of laboratory results Normal [facility] Troponin I.cardiac [Mass/Vol ]on 02-21-2024 Interpretation and review of laboratory results Abnormal [facility] Interpretation and review of laboratory results Abnormal [facility] URINE CULTUREon 02-21-2024 Bacteria identified Cx Nom [...] Non-susceptible NO = No Interpretation ] Normal [facility] Comment on above: Performed By: #### L [id number] ####Service Coordinator: SILVIA FRENCH ([phone])[address] Urinalysis complete panel (U )Ordered By: Reg Adame on 02-21-2024 Bacteria LM.HPF (Urine sed) [#/Area] Moderate Abnormal Negative /HPF [facility] Bilirubin Ql (U) Negative Negative mg/dL [facility] Clarity (U) Turbid Abnormal Clear [facility] Color (U) Yellow Lt. Yellow [facility] Epithelial cells.squamous LM.HPF (Urine sed) [#/Area] 6-10 Abnormal [facility] Glucose Ql (U) Normal Normal (<70) mg/dL [facility] Hemoglobin Ql (U) 0.2 mg/dL Abnormal Negative [facility] Interpretation and review of laboratory results Abnormal [facility] Ketones (U) [Mass/Vol] Negative Negat rhonda mg/dL [facility] Leukocyte esterase Test strip Ql (U) 500 Abnormal Negative Ha/uL [facility] Mucus LM.HPF (Urine sed) [#/Area] Few Negative /LPF [facility] Nitrite Ql (U) Positive Abnormal Negative [facility] th pH (U) 6.0 [pH] 5.0 - 8.[address] [facility] Protein (U) [Mass/Vol] 30 mg/dL Abnormal Negative [facility] RBC LM.HPF (Urine sed) [#/Area] 6-[address] [facility] Specific gravity (U) [Rel density] 1.046 High 1.005 - 1.030 [facility] Urobilinogen (U) [Mass/Vol] Normal Normal (0-1) mg/dL [facility] WBC LM.HPF (Urine sed) [#/Area] /[HPF] Abnormal [facility] Vital signson 02-21-2024 Oxygen saturation in Venous blood 62.6 % [facility] XR Chest Single viewon 02-20 [facility] Radiology Study observation (narrative) [facility] Whole blood hemoglobin A1c/t otal hemoglobin ratio (mass fraction)Ordered By: Lucy Quick on 12-31-2023 HbA1c (Bld) [Mass fraction] 6.1 % 3.8-5.6 [facility] Comment on above: Normal < 5.7 % Predi abetic 5.7 - 6.4 % Diabetic >or= 6.5 % Please note range changes. Basophil percentageOrdered B y: Lucy Quick on 12-10-2023 Basophil percentage 0-5 SEEN /hpf 0-5 [facility] Bilirubin Test strip Ql (U)O rdered By: Lucy Quick on 12-10-2023 Bilirubin Ql (U) Negative Negative [facility] Culture, urineOrdered By: Jemal Campos on 12-10-2023 Bacteria identified Cx Nom (U) Providencia stuartii [facility] Bacteria identified Cx Nom (U) Escherichia coli [facility] Bacteria identified Cx Nom (U) Proteus mirabilis [facility] Ketones Test strip Ql (U)Ord ered By: Lucy Quick on 12-10-2023 Ketones Ql (U) Negative Negative [facility] Mucus LM Ql (Urine sed)Order ed By: Lucy Quick on 12-10-2023 Mucus Ql (Urine sed) 0 SEEN /hpf [facility] Nitrite Test strip Ql (U)Ord ered By: Lucy Quick on 12-10-2023 Nitrite Ql (U) Negative Negative [facility] No Panel InformationOrdered By: Lucy Quick on 12-10-2023 Urine RBC 0 SEEN /hpf 0-5 [facility] Protein Test strip Ql (U)Ord ered By: Lucy Quick on 12-10-2023 Protein Ql (U) Negative Negative [facility] Squamous epithelial cells de tection in urine sediment by light microscopyOrdered By: Lucy Quick on 12-10-2023 Epithelial cells.squamous LM Ql (Urine sed) 0-5 SEEN /hpf 5-10 [facility] Urine blood detectionOrdered By: Lucy Quick on 12-10-2023 RBC Ql (U) Negative Negative [facility] Urine clarityOrdered By: Josee Quick on 12-10-2023 Clarity (U) Clear Clear [facility] Urine color determinationOrd ered By: Lucy Quick on 12-10-2023 Color (U) Straw Yellow [facility] Urine glucose detectionOrder ed By: Lucy Quick on 12-10-2023 Glucose Ql (U) Normal mg/dl Normal [facility] Urine leukocyte esterase det ection by dipstickOrdered By: Lucy Quick on 12-10-2023 Leukocyte esterase Test strip Ql (U) 25 /ul Negative [facility] Urine pHOrdered By: Lucy mcguire on 12-10-2023 pH (U) 7.0 [pH] 5.0 - 8.0 [facility] Urine sediment bacteria coun t by microscopy (number/high power field)Ordered By: Lucy Quick on 12-10-2023 Bacteria LM.HPF (Urine sed) [#/Area] 1 /[HPF] None Seen [facility] Urine specific gravity measu rementOrdered By: Lucy Quick on 12-10-2023 Specific gravity (U) [Rel density] 1.005 1.002-1.030 [facility] Urine urobilinogen measureme ntOrdered By: Luyc Quick on 12-10-2023 Urobilinogen Ql (U) Normal mg/dl Normal [facility] Whole blood hemoglobin A1c/t otal hemoglobin ratio (mass fraction)Ordered By: Lucy Quick on 10-04-2023 HbA1c (Bld) [Mass fraction] 7.1 % 3.8-5.6 [facility] Comment on above: Normal < 5.7 % Predi abetic 5.7 - 6.4 % Diabetic >or= 6.5 % Please note range changes. Basophil percentageOrdered B y: Lucy Quick on 08-02-2023 Bilirubin [Mass/Vol] 0.10 mg/dL 0.20-1.00 [facility] Comment on above: For patients on eltr ombopag therapy, use of Dimension Gibson TBIL is not recommended. Chloride [Moles/Vol] 104 mmol/L 98-107 [facility] Glucose [Mass/Vol] 370 mg/dL 74-106 [facility] Comment on above: Glucose result great er than or equal to 200 mg/dLsuggests DIABETES MELLITUS per A.D.A. criteria. Potassium [Moles/Vol] 4.4 mmol/L 3.5-5.1 [facility] Protein [Mass/Vol] 5.8 g/dL 6.4-8.2 [facility] Sodium [Moles/Vol] 138 mmol/L 136-145 [facility] WBC (Bld) [#/Vol] 5.4 10*3/uL 4.4-11.0 [facility] Blood erythrocytes count (nu mber/volume)Ordered By: Lucy Quick on 08-02-2023 RBC (Bld) [#/Vol] 3.66 10*6/uL 4.2-5.4 [facility] Blood hemoglobin measurement (mass/volume)Ordered By: Lucy Quick on 08-02-2023 Hemoglobin (Bld) [Mass/Vol] 10.3 g/dL 12.0-15.0 [facility] Blood platelet mean volumeOr dered By: Lucy Quick on 08-02-2023 Platelet mean volume (Bld) [Entitic vol] 8.9 fL 6.2-12.0 [facility] Determination of erythrocyte mean corpuscular volume (MCV)Ordered By: Lucy Quick on 08-02-2023 MCV (RBC) [Entitic vol] 99.5 fL 81-99 [facility] Hematocrit Auto (Bld) [Volum e fraction]Ordered By: Lucy Quick on 08-02-2023 Hematocrit (Bld) [Volume fraction] 36.4 % 37-47 [facility] Laboratory - Chemistry and C hemistry - challengeOrdered By: Lucy Quick on 08-02-2023 ALP [Catalytic activity/Vol] 77 U/L 45-117 [facility] ALT [Catalytic activity/Vol] 13 U/L 13-56 [facility] CO2 [Moles/Vol] 28.0 mmol/L 21.0-32.0 [facility] Globulin (S) [Mass/Vol] 3.9 g/dL 2.2-4.2 [facility] Urea nitrogen/Creatinine [Mass ratio] 17.6 mg/mg 10-20 [facility] Laboratory - Hematology and Cell countsOrdered By: Lucy Quick on 08-02-2023 Erythrocyte distribution width (RBC) [Entitic vol] 48.1 fL 35.1-43.9 [facility] Erythrocyte distribution width (RBC) [Ratio] 13.1 % 11.6-14.6 [facility] MCH (RBC) [Entitic mass] 28.1 pg 27.0-32.0 [facility] MCHC Auto (RBC) [Mass/Vol]Or dered By: Lucy Quick on 08-02-2023 MCHC (RBC) [Mass/Vol] 28.3 g/dL 32-36 [facility] No Panel InformationOrdered By: Lucy Quick on 08-02-2023 Estimated GFR (MDRD) Amer 55 mL/min >60 [facility] Comment on above: GFR Calc Estimated GFR (MDRD) Non-Af Amer 46 mL/min >60 [facility] Comment on above: Non- GFR Calc Platelets bldOrdered By: Josee Quick on 08-02-2023 Platelets (Bld) [#/Vol] 257 10*3/uL 150-450 [facility] Serum or plasma albumin catracho urement (mass/volume)Ordered By: Lucy Quick on 08-02-2023 Albumin [Mass/Vol] 1.9 g/dL 3.2-5.0 [facility] Serum or plasma albumin/glob ulin mass ratioOrdered By: Lucy Quick on 08-02-2023 Albumin/Globulin [Mass ratio] 0.5 {ratio} 0.9-2.4 [facility] Serum or plasma calcium catracho urement (mass/volume)Ordered By: Lucy Quick on 08-02-2023 Calcium [Mass/Vol] 8.6 mg/dL 8.5-10.1 [facility] Serum or plasma creatinine m easurement (mass/volume)Ordered By: Lucy Quick on 08-02-2023 Creatinine [Mass/Vol] 1.25 mg/dL 0.55-1.02 [facility] Comment on above: The validity of the calculated GFR & GFRAA in patients over 70 years has not been determined. Clinical correlation is essential. Serum or plasma urea nitroge n measurement (mass/volume)Ordered By: Lucy Quick on 08-02-2023 Urea nitrogen [Mass/Vol] 22 mg/dL 7-18 [facility] Thin prep Papanicolaou smear with manual screeningOrdered By: Lucy Quick on 08-02-2023 Thin prep Papanicolaou smear with manual screening 8 U/L 15-37 [facility] Thin prep Papanicolaou smear with manual screening 6 5-15 [facility] Basophil percentageOrdered B y: Lucy Quick on 07-16-2023 Basophil percentage 0-5 SEEN /hpf 0-5 [facility] Bilirubin Test strip Ql (U)O rdered By: Lucy Quick on 07-16-2023 Bilirubin Ql (U) Negative Negative [facility] Culture, urineOrdered By: Jemal Campos on 07-16-2023 Bacteria identified Cx Nom (U) Mixed Gram Pos & Gram Neg Org [facility] Ketones Test strip Ql (U)Ord ered By: Lucy Quick on 07-16-2023 Ketones Ql (U) Negative Negative [facility] Mucus LM Ql (Urine sed)Order ed By: Lucy Quick on 07-16-2023 Mucus Ql (Urine sed) 0 SEEN /hpf [facility] Nitrite Test strip Ql (U)Ord ered By: Lucy Quick on 07-16-2023 Nitrite Ql (U) Negative Negative [facility] Protein Test strip Ql (U)Ord ered By: Lucy Quick on 07-16-2023 Protein Ql (U) 15 mg/dl Negative [facility] Squamous epithelial cells de tection in urine sediment by light microscopyOrdered By: Lucy Quick on 07-16-2023 Epithelial cells.squamous LM Ql (Urine sed) 5-10 SEEN /hpf 5-10 [facility] Urine blood detectionOrdered By: Lucy Quick on 07-16-2023 RBC Ql (U) 10 /ul Negative [facility] RBC Ql (U) 0-5 SEEN /hpf 0-5 [facility] Urine clarityOrdered By: Josee Quick on 07-16-2023 Clarity (U) Sl. Cloudy Clear [facility] Urine color determinationOrd ered By: Lucy Quick on 07-16-2023 Color (U) Yellow Yellow [facility] Urine glucose detectionOrder ed By: Lucy Quick on 07-16-2023 Glucose Ql (U) Normal mg/dl Normal [facility] Urine leukocyte esterase det ection by dipstickOrdered By: Lucy Quick on 07-16-2023 Leukocyte esterase Test strip Ql (U) 25 /ul Negative [facility] Urine pHOrdered By: Lucy mcguire on 07-16-2023 pH (U) 6.0 [pH] 5.0 - 8.0 [facility] Urine sediment bacteria coun t by microscopy (number/high power field)Ordered By: Lucy Quick on 07-16-2023 Bacteria LM.HPF (Urine sed) [#/Area] 1 /[HPF] None Seen [facility] Urine specific gravity measu rementOrdered By: Lucy Quick on 07-16-2023 Specific gravity (U) [Rel density] 1.015 1.002-1.030 [facility] Urobilinogen Auto test strip Ql (U)Ordered By: Lucy Quick on 07-16-2023 Urobilinogen Ql (U) Normal mg/dl Normal [facility] Basophil percentageOrdered B y: Lucy Quick on 07-03-2023 Bilirubin [Mass/Vol] 0.20 mg/dL 0.20-1.00 [facility] Comment on above: For patients on eltr ombopag therapy, use of Dimension Gibson TBIL is not recommended. Chloride [Moles/Vol] 103 mmol/L 98-107 [facility] Glucose [Mass/Vol] 110 mg/dL 74-106 [facility] Comment on above: Fasting Glucose resu lt from 100 to 125 mg/dL suggests IMPAIRED HOMEOSTASIS per A.D.A. criteria. Potassium [Moles/Vol] 3.6 mmol/L 3.5-5.1 [facility] Protein [Mass/Vol] 6.1 g/dL 6.4-8.2 [facility] Sodium [Moles/Vol] 140 mmol/L 136-145 [facility] WBC (Bld) [#/Vol] 6.9 10*3/uL 4.4-11.0 [facility] Blood erythrocytes count (nu mber/volume)Ordered By: Lucy Quick on 07-03-2023 RBC (Bld) [#/Vol] 3.29 10*6/uL 4.2-5.4 [facility] Blood hemoglobin measurement (mass/volume)Ordered By: Lucy Quick on 07-03-2023 Hemoglobin (Bld) [Mass/Vol] 9.6 g/dL 12.0-15.0 [facility] Blood platelet mean volumeOr dered By: Lucy Quick on 07-03-2023 Platelet mean volume (Bld) [Entitic vol] 8.2 fL 6.2-12.0 [facility] Determination of erythrocyte mean corpuscular volume (MCV)Ordered By: Lucy Quick on 07-03-2023 MCV (RBC) [Entitic vol] 94.2 fL 81-99 [facility] Hematocrit Auto (Bld) [Volum e fraction]Ordered By: Lucy Quick on 07-03-2023 Hematocrit (Bld) [Volume fraction] 31.0 % 37-47 [facility] Laboratory - Chemistry and C hemistry - challengeOrdered By: Lucy Quick on 07-03-2023 ALP [Catalytic activity/Vol] 74 U/L 45-117 [facility] ALT [Catalytic activity/Vol] 13 U/L 13-56 [facility] CO2 [Moles/Vol] 31.0 mmol/L 21.0-32.0 [facility] Globulin (S) [Mass/Vol] 3.7 g/dL 2.2-4.2 [facility] Urea nitrogen/Creatinine [Mass ratio] 23.8 mg/mg 10-20 [facility] Laboratory - Hematology and Cell countsOrdered By: Lucy Quick on 07-03-2023 Erythrocyte distribution width (RBC) [Entitic vol] 46.0 fL 35.1-43.9 [facility] Erythrocyte distribution width (RBC) [Ratio] 13.3 % 11.6-14.6 [facility] MCH (RBC) [Entitic mass] 29.2 pg 27.0-32.0 [facility] MCHC Auto (RBC) [Mass/Vol]Or dered By: Lucy Quick on 07-03-2023 MCHC (RBC) [Mass/Vol] 31.0 g/dL 32-36 [facility] No Panel InformationOrdered By: Lucy Quick on 07-03-2023 Estimated GFR (MDRD) Amer 47 mL/min >60 [facility] Comment on above: GFR Calc Estimated GFR (MDRD) Non-Af Amer 39 mL/min >60 [facility] Comment on above: Non- GFR Calc Thyroid Stimulating Hormone (TSH) 4.21 uIU/mL 0.358-3.74 [facility] Platelets bldOrdered By: Josee Quick on 07-03-2023 Platelets (Bld) [#/Vol] 314 10*3/uL 150-450 [facility] Serum or plasma albumin catracho urement (mass/volume)Ordered By: Lucy Quick on 07-03-2023 Albumin [Mass/Vol] 2.4 g/dL 3.2-5.0 [facility] Serum or plasma albumin/glob ulin mass ratioOrdered By: Lucy Quick on 07-03-2023 Albumin/Globulin [Mass ratio] 0.6 {ratio} 0.9-2.4 [facility] Serum or plasma calcium catracho urement (mass/volume)Ordered By: Lucy Quick on 07-03-2023 Calcium [Mass/Vol] 8.6 mg/dL 8.5-10.1 [facility] Serum or plasma creatinine m easurement (mass/volume)Ordered By: Lucy Quick on 07-03-2023 Creatinine [Mass/Vol] 1.43 mg/dL 0.55-1.02 [facility] Comment on above: The validity of the calculated GFR & GFRAA in patients over 70 years has not been determined. Clinical correlation is essential. Serum or plasma urea nitroge n measurement (mass/volume)Ordered By: Lucy Quick on 07-03-2023 Urea nitrogen [Mass/Vol] 34 mg/dL 7-18 [facility] Thin prep Papanicolaou smear with manual screeningOrdered By: Lucy Quick on 07-03-2023 Thin prep Papanicolaou smear with manual screening 10 U/L 15-37 [facility] Thin prep Papanicolaou smear with manual screening 6 5-15 [facility] Whole blood hemoglobin A1c/t otal hemoglobin ratio (mass fraction)Ordered By: Lucy Quick on 07-03-2023 HbA1c (Bld) [Mass fraction] 6.7 % 3.8-5.6 [facility] Comment on above: Normal < 5.7 % Predi abetic 5.7 - 6.4 % Diabetic >or= 6.5 % Please note range changes. ED NOTEon 06-30-2023 ED NOTE HNO ID: [id number] Author: Roseanne Ontiveros RN Service: Emergency Medicine Author Type: Registered Nurse Type: ED Notes Filed: 06/30/2023 12:29 AM Note Text: Transport arrived. Normal [facility] ED NOTE HNO ID: [id number] Author: Roseanne Ontiveros RN Service: Emergency Medicine Author Type: Registered Nurse Type: ED Notes Filed: 06/29/2023 11:33 PM Note Text: Transport called. ETA 0030. Normal [facility] ED PROV NOTEon 06-30-2023 ED PROV NOTE Normal [facility] ALLIED HEALTHon 06-29-2023 ALLIED HEALTH Normal [facility] Bilirubin Test strip Ql (U)O rdered By: Lucy Quick on 06-29-2023 Bilirubin Ql (U) Negative Negative [facility] CBC W Auto Differential pane l (Bld)on 06-29-2023 Basophils (Bld) [#/Vol] 0.05 10*3/uL Normal <0.11 [facility] Comment on above: Order Comment: Speci men Type: BLOOD SPECIMENOrdering Facility: [facility] Address: [address] [place] [address] Performed By: #### 5 7021-8 ####[facility]ORATORYCLIA [id number] [address] [place] Basophils/100 WBC (Bld) 0.8 % Normal A [facility] Comment on above: Order Comment: Speci men Type: BLOOD SPECIMENOrdering Facility: [facility] Address: [address] [place] [address] Performed By: #### 5 7021-8 ####[facility]ORATORYCLIA [id number] [address] Differential cell count method Nom (Bld) Auto Normal [facility] Comment on above: Order Comment: Speci men Type: BLOOD SPECIMENOrdering Facility: [facility] Address: [address] [place] [address] Performed By: #### 5 7021-8 ####[facility]ORATORYCLIA [id number] [place] [address] [place] Eosinophils (Bld) [#/Vol] 0.37 10*3/uL Normal <0.46 [facility] Comment on above: Order Comment: Speci men Type: BLOOD SPECIMENOrdering Facility: [facility] Address: [address] [place] [address] Performed By: #### 5 7021-8 ####[facility]ATORYCLIA [id number] [address] Eosinophils/100 WBC (Bld) 6.1 % Normal [facility] Comment on above: Order Comment: Speci men Type: BLOOD SPECIMENOrdering Facility: [facility] Address: [address] [address] Performed By: #### 5 7021-8 ####[facility]ATORYCLIA [id number] [address] Erythrocyte distribution width (RBC) [Ratio] 13.4 % Normal 11.5-15.0 [facility] Comment on above: Order Comment: Speci men Type: BLOOD SPECIMENOrdering Facility: [facility] Address: [address] [address] Performed By: #### 5 7021-8 ####[facility]ORATORYCLIA [id number] [address] [facility] Hematocrit (Bld) [Volume fraction] 31.0 % Low 36.0-46.0 [facility] Comment on above: Order Comment: Speci men Type: BLOOD SPECIMENOrdering Facility: [facility] Address: [address] [place] [address] Performed By: #### 5 7021-8 ####[facility]ATORYCLIA [id number] [address] [place] Hemoglobin (Bld) [Mass/Vol] 9.8 g/dL Low 11.5-15.5 [facility] Comment on above: Order Comment: Speci men Type: BLOOD SPECIMENOrdering Facility: [facility] Address: [address] [place] [address] Performed By: #### 5 7021-8 ####[facility]ORYCLIA [id number] [address] [place] Immature granulocytes (Bld) [#/Vol] 0.18 10*3/uL High <0.10 [facility] Comment on above: Order Comment: Speci men Type: BLOOD SPECIMENOrdering Facility: [facility] Address: [address] [place] [address] Performed By: #### 5 7021-8 ####[facility]ORYCLIA [id number] [address] Immature granulocytes/100 WBC (Bld) 3.0 % Normal [facility] Comment on above: Order Comment: Speci men Type: BLOOD SPECIMENOrdering Facility: [facility] Address: [address] [address] Performed By: #### 5 7021-8 ####[facility]ORATORYCLIA [id number] [address] [facility] Lymphocytes (Bld) [#/Vol] 1.68 10*3/uL Normal 1.00-4.00 [facility] Comment on above: Order Comment: Speci men Type: BLOOD SPECIMENOrdering Facility: [facility] Address: [address] [address] Performed By: #### 5 7021-8 ####[facility]ATORYCLIA [id number] [address] Lymphocytes/100 WBC (Bld) 27.9 % Normal [facility] Comment on above: Order Comment: Speci men Type: BLOOD SPECIMENOrdering Facility: [facility] Address: [address] [address] Performed By: #### 5 7021-8 ####[facility]ORATORYCLIA [id number] [address] [place] [facility] MCH (RBC) [Entitic mass] 28.7 pg Normal 26.0-34.0 [facility] Comment on above: Order Comment: Speci men Type: BLOOD SPECIMENOrdering Facility: [facility] Address: [address] [address] Performed By: #### 5 7021-8 ####[facility]ORYCLIA [id number] [address] [place] MCHC (RBC) [Mass/Vol] 31.6 g/dL Normal 30.5-36.0 [facility] Comment on above: Order Comment: Speci men Type: BLOOD SPECIMENOrdering Facility: [facility] Address: [address] [place] [address] Performed By: #### 5 7021-8 ####[facility]ATORYCLIA [id number] [address] [place] MCV (RBC) [Entitic vol] 90.6 fL Normal 80.0-100.0 A [facility] Comment on above: Order Comment: Speci men Type: BLOOD SPECIMENOrdering Facility: [facility] Address: [address] [place] [address] Performed By: #### 5 7021-8 ####[facility]ATORYCLIA [id number] [place] [address] [place] Monocytes (Bld) [#/Vol] 0.68 10*3/uL Normal <0.87 [facility] Comment on above: Order Comment: Speci men Type: BLOOD SPECIMENOrdering Facility: [facility] Address: [address] [place] [address] Performed By: #### 5 7021-8 ####[facility]ORYCLIA [id number] [address] Monocytes/100 WBC (Bld) 11.3 % Normal A [facility] Comment on above: Order Comment: Speci men Type: BLOOD SPECIMENOrdering Facility: [facility] Address: [address] [place] [address] Performed By: #### 5 7021-8 ####[facility]ATORYCLIA [id number] [address] [place] Neutrophils (Bld) [#/Vol] 3.07 10*3/uL Normal 1.45-7.50 [facility] Comment on above: Order Comment: Speci men Type: BLOOD SPECIMENOrdering Facility: [facility] Address: [address] [place] [address] Performed By: #### 5 7021-8 ####[facility]ORYCLIA [id number] [address] [place] Neutrophils/100 WBC (Bld) 50.9 % Normal [facility] Comment on above: Order Comment: Speci men Type: BLOOD SPECIMENOrdering Facility: [facility] Address: [address] [place], [place] [address] Performed By: #### 5 7021-8 ####[facility]ORYCLIA [id number] [address] [place] Nucleated RBC (Bld) [#/Vol] 10*3/uL Normal <0.01 [facility] Comment on above: Order Comment: Speci men Type: BLOOD SPECIMENOrdering Facility: [facility] Address: [address] [place] [address] Performed By: #### 5 7021-8 ####[facility]ATORYCLIA [id number] [address] [place] Nucleated RBC/100 WBC (Bld) [Ratio] 0.0 /100 WBC Normal [facility] Comment on above: Order Comment: Speci men Type: BLOOD SPECIMENOrdering Facility: [facility] Address: [address] [place] [address] Performed By: #### 5 7021-8 ####[facility]ATORYCLIA [id number] [place] [address] [place] Platelet mean volume (Bld) [Entitic vol] 7.9 fL Low 9.0-12.7 [facility] Comment on above: Order Comment: Speci men Type: BLOOD SPECIMENOrdering Facility: [facility] Address: [address] [place] [address] Performed By: #### 5 7021-8 ####[facility]ORYCLIA [id number] [place] [address] [place] Platelets (Bld) [#/Vol] 279 10*3/uL Normal 150-400 [facility] Comment on above: Order Comment: Speci men Type: BLOOD SPECIMENOrdering Facility: [facility] Address: [address] [place] [address] Performed By: #### 5 7021-8 ####[facility]ORYCLIA [id number] [address] [place] RBC (Bld) [#/Vol] 3.42 10*6/uL Low 3.90-5.20 [facility] Comment on above: Order Comment: Speci men Type: BLOOD SPECIMENOrdering Facility: [facility] Address: [address] [place] [address] Performed By: #### 5 7021-8 ####[facility]ORYCLIA [id number] [address] [facility] WBC (Bld) [#/Vol] 6.03 10*3/uL Normal 3.70-11.00 [facility] Comment on above: Order Comment: Speci men Type: BLOOD SPECIMENOrdering Facility: [facility] Address: [address] [place] [address] Performed By: #### 5 7021-8 ####[facility]ORYCLIA [id number] [address] [facility] CT BRAIN WO IVCONon 06-29-20 CT BRAIN WO IVCON Normal [facility] Comprehensive metabolic 2000 panelon 06-29-2023 Albumin [Mass/Vol] 3.5 g/dL Low 3.9-4.9 [facility] Comment on above: Order Comment: Speci men Type: BLOOD SPECIMENOrdering Facility: [facility] Address: [address] [place] [address] Performed By: #### 2 4323-8 ####[facility]ORYCLIA [id number] [address] STATES [facility] ALP [Catalytic activity/Vol] 84 U/L Normal 34-123 [facility] Comment on above: Order Comment: Speci men Type: BLOOD SPECIMENOrdering Facility: [facility] Address: [address] [place] [address] Performed By: #### 2 4323-8 ####[facility]ATORYCLIA [id number] [address] STATES [facility] ALT With P-5'-P [Catalytic activity/Vol] 10 U/L Normal 7-38 [facility] Comment on above: Order Comment: Speci men Type: BLOOD SPECIMENOrdering Facility: [facility] Address: [address] [place] [address] Performed By: #### 2 4323-8 ####[facility]ORYCLIA [id number] [address] [place] Anion gap [Moles/Vol] 13 mmol/L Normal 9-18 [facility] Comment on above: Order Comment: Speci men Type: BLOOD SPECIMENOrdering Facility: [facility] Address: [address] [place] [address] Performed By: #### 2 4323-8 ####[facility]ORYCLIA [id number] [place] [address] [place] AST With P-5'-P [Catalytic activity/Vol] 12 U/L Low 13-35 [facility] Comment on above: Order Comment: Speci men Type: BLOOD SPECIMENOrdering Facility: [facility] Address: [address] [place] [address] Performed By: #### 2 4323-8 ####[facility]ORYCLIA [id number] [place] [address] [place] Bilirubin [Mass/Vol] 0.3 mg/dL Normal 0.2-1.3 [facility] Comment on above: Order Comment: Speci men Type: BLOOD SPECIMENOrdering Facility: [facility] Address: [address] [place] [address] Performed By: #### 2 4323-8 ####[facility]ORYCLIA [id number] [address] [place] Calcium [Mass/Vol] 9.0 mg/dL Normal 8.5-10.2 [facility] Comment on above: Order Comment: Speci men Type: BLOOD SPECIMENOrdering Facility: [facility] Address: [address] [place] [address] Performed By: #### 2 4323-8 ####[facility]ORYCLIA [id number] [place] [address] [place] Chloride [Moles/Vol] 98 mmol/L Normal 97-105 [facility] Comment on above: Order Comment: Speci men Type: BLOOD SPECIMENOrdering Facility: [facility] Address: [address] [place] [address] Performed By: #### 2 4323-8 ####[facility]ORYCLIA [id number] [address] [place] CO2 [Moles/Vol] 28 mmol/L Normal 22-30 [facility] Comment on above: Order Comment: Speci men Type: BLOOD SPECIMENOrdering Facility: [facility] Address: [address] [place] [address] Performed By: #### 2 4323-8 ####[facility]ORYCLIA [id number] [address] [place] Creatinine [Mass/Vol] 1.30 mg/dL High 0.58-0.96 [facility] Comment on above: Order Comment: Speci men Type: BLOOD SPECIMENOrdering Facility: [facility] Address: [address] [place] [address] Performed By: #### 2 4323-8 ####[facility]ATORYCLIA [id number] [address] Creatinine and Glomerular filtration rate.predicted panel (S/P/Bld) 46 mL/min/1.73m??? Low >=60 [facility] Comment on above: Order Comment: Speci men Type: BLOOD SPECIMENOrdering Facility: [facility] Address: [address] [place] [address] Result Comment: Petra mated Glomerular Filtration Rate [...] actual GFR. Performed By: #### 2 4323-8 ####[facility]ATORYCLIA [id number] [address] [place] Glucose [Mass/Vol] 167 mg/dL High 74-99 [facility] Comment on above: Order Comment: Speci men Type: BLOOD SPECIMENOrdering Facility: [facility] Address: [address] [place] [address] Result Comment: The [place] [employer] (ADA) provides guidance for cutoff [...] Standards of Medical Care in Diabetes 2016, [place] [employer]. Diabetes Care. 2016.39(Suppl 1). Performed By: #### 2 4323-8 ####[facility]ATORYCLIA [id number] [place] [address] [place] Potassium [Moles/Vol] 3.9 mmol/L Normal 3.7-5.1 [facility] Comment on above: Order Comment: Scott bozena Type: BLOOD SPECIMENOrdering Facility: [facility] Address: [address] [place] [address] Performed By: #### 2 4323-8 ####[facility]ORYCLIA [id number] [place] [address] [place] Protein [Mass/Vol] 6.3 g/dL Normal 6.3-8.0 [facility] Comment on above: Order Comment: Speci men Type: BLOOD SPECIMENOrdering Facility: [facility] Address: [address] [place] [address] Performed By: #### 2 4323-8 ####[facility]ATORYCLIA [id number] [place] [address] [place] Sodium [Moles/Vol] 139 mmol/L Normal 136-144 [facility] Comment on above: Order Comment: Speci men Type: BLOOD SPECIMENOrdering Facility: [facility] Address: [address] [address] Performed By: #### 2 4323-8 ####[facility]ATORYCLIA [id number] [place] [address] [place] Urea nitrogen [Mass/Vol] 34 mg/dL High 7-21 [facility] Comment on above: Order Comment: Speci men Type: BLOOD SPECIMENOrdering Facility: [facility] Address: [address] [place] [address] Performed By: #### 2 4323-8 ####[facility]ATORYCLIA [id number] [address] [place] Culture, urineOrdered By: Jemal Campos on 06-29-2023 Bacteria identified Cx Nom (U) Aerococcus viridans. [facility] Bacteria identified Cx Nom (U) Pseudomonas stutzeri [facility] Bacteria identified Cx Nom (U) Aerococcus urinae [facility] ECG COMPLETEon 06-29-2023 ECG COMPLETE Normal [facility] ED PROV NOTEon 06-29-2023 ED PROV NOTE Normal [facility] Ethanol SerPl-mCncon 023 Ethanol [Mass/Vol] mg/dL Normal <11 [facility] Comment on above: Order Comment: Speci men Type: BLOOD SPECIMENOrdering Facility: [facility] Address: [address] [place] [address] Performed By: #### 5 643-2 ####[facility]ATORYCLIA [id number] [place] [address] [place] Ketones Test strip Ql (U)Ord ered By: Lucy Quick on 06-29-2023 Ketones Ql (U) Negative Negative [facility] Nitrite Test strip Ql (U)Ord ered By: Lucy Quick on 06-29-2023 Nitrite Ql (U) Negative Negative [facility] Protein Test strip Ql (U)Ord ered By: Lucy Quick on 06-29-2023 Protein Ql (U) Negative Negative [facility] Review by pathologistOrdered By: Lucy Quick on 06-29-2023 Pathologist review Anselmo (Unsp spec) [Interp] See comment [facility] Comment on above: ABUNDANT DEGENERATIN G MACROPHAGES AND EPITHELIOD CELLS PRESENT.CLINICAL CORRELATION NECESSARY.DR.ARUN INMAN 06/29/23 THIS REPORT REFERENCES SPECIMEN 0901;U23 Previous reported result: Edited by: DENNY on 06/29/23:1406 AMENDED REPORT 06/29/231405 PATH REV previously reported as: ABUNDANT DEGENERATING MACROPHAGES AND EPITHELIOD CELLS PRESENT.CLINICAL CORRELATION NECESSARY.DR.ARUN INMAN 06/29/23 SARS-CoV-2 RNA Resp Ql IGGY+p [facility] 06-29-2023 SARS-CoV-2 (COVID-19) RNA IGGY+probe Ql (Resp) COVID 19 RESULT: Not detected The method used is RT-PCR or an equivalent NAAT method. Reference Range(the expected result in uninfected individuals): Not detected Normal [facility] Comment on above: Performed By: #### 9 4500-6 ####[facility]ATORYCLIA [id number] [place] [address] [place] TOX SCREEN ROUT URon 023 Amphetamines Confirm (U) [Mass/Vol] Negative Normal Negative [facility] Comment on above: Order Comment: Speci men Type: URINE SPECIMENOrdering Facility: [facility] Address: [address] [place] [id number] Result Comment: Cuto ff threshold at 1000 ng/mL. Performed By: #### U TOX2 ####[facility]ATORYCLIA [id number] [address] [place] BARBITURATES, URINE Negative Normal Negative [facility] Comment on above: Order Comment: Speci men Type: URINE SPECIMENOrdering Facility: [facility] Address: [address] [place] [address] Result Comment: Cuto ff threshold at 200 ng/mL. Performed By: #### U TOX2 ####[facility]ATORYCLIA [id number] [place] [address] [place] BENZODIAZEPINES, UR Negative Normal Negative [facility] Comment on above: Order Comment: Speci men Type: URINE SPECIMENOrdering Facility: [facility] Address: [address] [place] [address] Result Comment: Cuto ff threshold at 200 ng/mL. Performed By: #### U TOX2 ####[facility]ATORYCLIA [id number] [address] Cannabinoids Screen Ql (U) Negative Normal Negative [facility] Comment on above: Order Comment: Speci men Type: URINE SPECIMENOrdering Facility: [facility] Address: [address] [place] [address] Result Comment: Cuto ff threshold at 50 ng/mL. Performed By: #### U TOX2 ####[facility]ATORYCLIA [id number] [address] STATES [facility] Cocaine Ql (U) Negative Normal Negative [facility] Comment on above: Order Comment: Speci men Type: URINE SPECIMENOrdering Facility: [facility] Address: [address] [place] [address] Result Comment: Cuto ff threshold at 300 ng/mL. Performed By: #### U TOX2 ####[facility]ATORYCLIA [id number] [address] [place] Ethanol (U) [Mass/Vol] <11 Normal <11 [facility] Comment on above: Order Comment: Speci men Type: URINE SPECIMENOrdering Facility: [facility] Address: [address] [place] [address] Performed By: #### U TOX2 ####[facility]ATORYCLIA [id number] [address] [place] Opiates Screen Ql (U) Negative Normal Negative [facility] Comment on above: Order Comment: Speci men Type: URINE SPECIMENOrdering Facility: [facility] Address: [address] [place] [address] Result Comment: Cuto ff threshold at 300 ng/mL. Performed By: #### U TOX2 ####[facility]ATORYCLIA [id number] [address] oxyCODONE cutoff Screen (U) [Mass/Vol] Positive Abnormal Negative [facility] Comment on above: Order Comment: Speci men Type: URINE SPECIMENOrdering Facility: [facility] Address: [address] [place] [address] Result Comment: Cuto ff threshold at 100 ng/mL. Performed By: #### U TOX2 ####[facility]ORYCLIA [id number] [address] Phencyclidine Ql (U) Negative Normal Negative [facility] Comment on above: Order Comment: Speci men Type: URINE SPECIMENOrdering Facility: [facility] Address: [address] [place] [address] Result Comment: Cuto ff threshold at 25 ng/mL. Performed By: #### U TOX2 ####[facility]ATORYCLIA [id number] [address] [place] Urinalysis complete pnl Uron 06-29-2023 Urinalysis complete panel (U) Normal [facility] Comment on above: Order Comment: Speci men Type: URINE SPECIMENOrdering Facility: [facility] Address: [address] [place] [address] Performed By: #### 2 4356-8 ####[facility]ORATORYCLIA [id number] [address] [place] Urine blood detectionOrdered By: Lucy Quick on 06-29-2023 RBC Ql (U) Negative Negative [facility] Urine clarityOrdered By: Josee Quick on 06-29-2023 Clarity (U) Clear Clear [facility] Urine color determinationOrd ered By: Lucy Quick on 06-29-2023 Color (U) Yellow Yellow [facility] Urine glucose detectionOrder ed By: Lucy Quick on 06-29-2023 Glucose Ql (U) Normal mg/dl Normal [facility] Urine leukocyte esterase det ection by dipstickOrdered By: Lucy Quick on 06-29-2023 Leukocyte esterase Test strip Ql (U) Negative Negative [facility] Urine pHOrdered By: Lucy mcguire on 06-29-2023 pH (U) 6.0 [pH] 5.0 - 8.0 [facility] Urine specific gravity measu rementOrdered By: Lucy Quick on 06-29-2023 Specific gravity (U) [Rel density] 1.015 1.002-1.030 [facility] Urobilinogen Auto test strip Ql (U)Ordered By: Lucy Quick on 06-29-2023 Urobilinogen Ql (U) Normal mg/dl Normal [facility] XR CHEST 2V FRONTAL/LATon XR CHEST 2V FRONTAL/LAT Normal A [facility] CNPNon 05-24-2023 CNPN Normal [facility] Basophil percentageOrdered B y: Lucy Quick on 05-21-2023 Basophil percentage 0-5 SEEN /hpf 0-5 [facility] Bilirubin Test strip Ql (U)O rdered By: Lucy Quick on 05-21-2023 Bilirubin Ql (U) Negative Negative [facility] Culture, urineOrdered By: Jemal Campos on 05-21-2023 Bacteria identified Cx Nom (U) Aerococcus viridans. [facility] Ketones Test strip Ql (U)Ord ered By: Lucy Quick on 05-21-2023 Ketones Ql (U) 15 mg/dl Negative [facility] Mucus LM Ql (Urine sed)Order ed By: Lucy Quick on 05-21-2023 Mucus Ql (Urine sed) 0 SEEN /hpf [facility] Nitrite Test strip Ql (U)Ord ered By: Lucy Quick on 05-21-2023 Nitrite Ql (U) Negative Negative [facility] Protein Test strip Ql (U)Ord ered By: Lucy Quick on 05-21-2023 Protein Ql (U) 15 mg/dl Negative [facility] Squamous epithelial cells de tection in urine sediment by light microscopyOrdered By: Lucy Quick on 05-21-2023 Epithelial cells.squamous LM Ql (Urine sed) 0 SEEN /hpf 5-10 [facility] Urine blood detectionOrdered By: Lucy Quick on 05-21-2023 RBC Ql (U) Negative Negative [facility] RBC Ql (U) 0 SEEN /hpf 0-5 [facility] Urine clarityOrdered By: Pet er Dustin on 05-21-2023 Clarity (U) Clear Clear [facility] Urine color determinationOrd ered By: Lucy Quick on 05-21-2023 Color (U) Yellow Yellow [facility] Urine glucose detectionOrder ed By: Lucy Quick on 05-21-2023 Glucose Ql (U) Normal mg/dl Normal [facility] Urine leukocyte esterase det ection by dipstickOrdered By: Lucy Quick on 05-21-2023 Leukocyte esterase Test strip Ql (U) 25 /ul Negative [facility] Urine pHOrdered By: Lucy mcguire on 05-21-2023 pH (U) 6.0 [pH] 5.0 - 8.0 [facility] Urine sediment bacteria coun t by microscopy (number/high power field)Ordered By: Lucy Quick on 05-21-2023 Bacteria LM.HPF (Urine sed) [#/Area] 0 /[HPF] None Seen [facility] Urine specific gravity measu rementOrdered By: Lucy Quick on 05-21-2023 Specific gravity (U) [Rel density] 1.015 1.002-1.030 [facility] Urobilinogen Auto test strip Ql (U)Ordered By: Lucy Quick on 05-21-2023 Urobilinogen Ql (U) Normal mg/dl Normal [facility] Basophil percentageOrdered B y: Lucy Quick on 04-04-2023 Chloride [Moles/Vol] 102 mmol/L 98-107 [facility] Glucose [Mass/Vol] 237 mg/dL 74-106 [facility] Comment on above: Glucose result great er than or equal to 200 mg/dLsuggests DIABETES MELLITUS per A.D.A. criteria. Potassium [Moles/Vol] 4.7 mmol/L 3.5-5.1 [facility] Sodium [Moles/Vol] 137 mmol/L 136-145 [facility] WBC (Bld) [#/Vol] 8.4 10*3/uL 4.4-11.0 [facility] Blood erythrocytes count (nu mber/volume)Ordered By: Lucy Quick on 04-04-2023 RBC (Bld) [#/Vol] 3.41 10*6/uL 4.2-5.4 [facility] Blood hemoglobin measurement (mass/volume)Ordered By: Lucy Quick on 04-04-2023 Hemoglobin (Bld) [Mass/Vol] 11.5 g/dL 12.0-15.0 [facility] Blood platelet mean volumeOr dered By: Lucy Quick on 04-04-2023 Platelet mean volume (Bld) [Entitic vol] 9.7 fL 6.2-12.0 [facility] Determination of erythrocyte mean corpuscular volume (MCV)Ordered By: Lucy Quick on 04-04-2023 MCV (RBC) [Entitic vol] 96.5 fL 81-99 [facility] Hematocrit Auto (Bld) [Volum e fraction]Ordered By: Lucy Quick on 04-04-2023 Hematocrit (Bld) [Volume fraction] 32.9 % 37-47 [facility] Laboratory - Chemistry and C hemistry - challengeOrdered By: Lucy Quick on 04-04-2023 CO2 [Moles/Vol] 27.0 mmol/L 21.0-32.0 [facility] Urea nitrogen/Creatinine [Mass ratio] 29.4 mg/mg 10-20 [facility] Laboratory - Hematology and Cell countsOrdered By: Lucy Quick on 04-04-2023 Erythrocyte distribution width (RBC) [Entitic vol] 47.2 fL 35.1-43.9 [facility] Erythrocyte distribution width (RBC) [Ratio] 15.4 % 11.6-14.6 [facility] MCH (RBC) [Entitic mass] 33.7 pg 27.0-32.0 [facility] MCHC Auto (RBC) [Mass/Vol]Or dered By: Lucy Quick on 04-04-2023 MCHC (RBC) [Mass/Vol] 35.0 g/dL 32-36 [facility] No Panel InformationOrdered By: Lucy Quick on 04-04-2023 Estimated GFR (MDRD) Amer 58 mL/min >60 [facility] Comment on above: GFR Calc Estimated GFR (MDRD) Non-Af Amer 48 mL/min >60 [facility] Comment on above: Non- GFR Calc Platelets bldOrdered By: Josee Quick on 04-04-2023 Platelets (Bld) [#/Vol] 260 10*3/uL 150-450 [facility] Serum or plasma calcium catracho urement (mass/volume)Ordered By: Lucy Quick on 04-04-2023 Calcium [Mass/Vol] 9.2 mg/dL 8.5-10.1 [facility] Serum or plasma creatinine m easurement (mass/volume)Ordered By: Lucy Quick on 04-04-2023 Creatinine [Mass/Vol] 1.19 mg/dL 0.55-1.02 [facility] Comment on above: The validity of the calculated GFR & GFRAA in patients over 70 years has not been determined. Clinical correlation is essential. Serum or plasma urea nitroge n measurement (mass/volume)Ordered By: Lucy Quick on 04-04-2023 Urea nitrogen [Mass/Vol] 35 mg/dL 7-18 [facility] Thin prep Papanicolaou smear with manual screeningOrdered By: Lucy Quick on 04-04-2023 Thin prep Papanicolaou smear with manual screening 8 5-15 [facility] Basophil percentageOrdered B y: Lucy Quick on 03-30-2023 Cholesterol [Mass/Vol] 136 mg/dL <200 [facility] Comment on above: <200 mg/dL Desirable 200-240 mg/dL Borderline >240 mg/dL High Risk Triglyceride [Mass/Vol] 141 mg/dL <199 [facility] Comment on above: The drugs N-Acetylcy steine and Metamizole may falsely depress this assay.Serum Triglycerides Reference Interval Normal <150 mg/dL Borderline high 150 - 199 mg/dL High 200 - 499 mg/dL Very High > or = 500 mg/dL Serum or plasma cholesterol in HDL measurement (mass/volume)Ordered By: Lucy Quick on 03-30-2023 Cholesterol in HDL [Mass/Vol] 41 mg/dL >40 [facility] Comment on above: The drugs N-Acetylcy steine and Metamizole may falsely depress this assay. Reference Range HDL <40 mg/dL Low HDL Cholesterol HDL >or= 60 mg/dL High HDL Cholesterol Serum or plasma cholesterol in VLDL measurement (mass/volume)Ordered By: Lucy Quick on 03-30-2023 Cholesterol in VLDL [Mass/Vol] 28 mg/dL 5-40 [facility] Serum or plasma low density lipoprotein (LDL) cholesterol measurement (mass/volume)Ordered By: Lucy Quick on 03-30-2023 Cholesterol in LDL [Mass/Vol] 67 mg/dL 0-130 [facility] Whole blood hemoglobin A1c/t otal hemoglobin ratio (mass fraction)Ordered By: Lucy Quick on 03-30-2023 HbA1c (Bld) [Mass fraction] 7.3 % 3.8-5.6 [facility] Comment on above: Normal < 5.7 % Predi abetic 5.7 - 6.4 % Diabetic >or= 6.5 % Please note range changes. Basophil percentageOrdered B y: Lucy Quick on 03-20-2023 Chloride [Moles/Vol] 101 mmol/L 98-107 [facility] Glucose [Mass/Vol] 96 mg/dL 74-106 [facility] Potassium [Moles/Vol] 3.9 mmol/L 3.5-5.1 [facility] Sodium [Moles/Vol] 139 mmol/L 136-145 [facility] WBC (Bld) [#/Vol] 7.0 10*3/uL 4.4-11.0 [facility] Blood erythrocytes count (nu mber/volume)Ordered By: Lucy Quick on 03-20-2023 RBC (Bld) [#/Vol] 3.25 10*6/uL 4.2-5.4 [facility] Blood hemoglobin measurement (mass/volume)Ordered By: Lucy Quick on 03-20-2023 Hemoglobin (Bld) [Mass/Vol] 9.1 g/dL 12.0-15.0 [facility] Blood platelet mean volumeOr dered By: Lucy Quick on 03-20-2023 Platelet mean volume (Bld) [Entitic vol] 8.2 fL 6.2-12.0 [facility] Determination of erythrocyte mean corpuscular volume (MCV)Ordered By: Lucy Quick on 03-20-2023 MCV (RBC) [Entitic vol] 92.3 fL 81-99 [facility] Hematocrit Auto (Bld) [Volum e fraction]Ordered By: Lucy Quick on 03-20-2023 Hematocrit (Bld) [Volume fraction] 30.0 % 37-47 [facility] Laboratory - Chemistry and C hemistry - challengeOrdered By: Lucy Quick on 03-20-2023 CO2 [Moles/Vol] 33.0 mmol/L 21.0-32.0 [facility] Urea nitrogen/Creatinine [Mass ratio] 19.2 mg/mg 10-20 [facility] Laboratory - Hematology and Cell countsOrdered By: Lucy Quick on 03-20-2023 Erythrocyte distribution width (RBC) [Entitic vol] 48.1 fL 35.1-43.9 [facility] Erythrocyte distribution width (RBC) [Ratio] 14.2 % 11.6-14.6 [facility] MCH (RBC) [Entitic mass] 28.0 pg 27.0-32.0 [facility] MCHC Auto (RBC) [Mass/Vol]Or dered By: Lucy Quick on 03-20-2023 MCHC (RBC) [Mass/Vol] 30.3 g/dL 32-36 [facility] No Panel InformationOrdered By: Lucy Quick on 03-20-2023 Estimated GFR (MDRD) Amer 44 mL/min >60 [facility] Comment on above: GFR Calc Estimated GFR (MDRD) Non-Af Amer 37 mL/min >60 [facility] Comment on above: Non- GFR Calc Platelets bldOrdered By: Josee Quick on 03-20-2023 Platelets (Bld) [#/Vol] 267 10*3/uL 150-450 [facility] Serum or plasma calcium catracho urement (mass/volume)Ordered By: Lucy Quick on 03-20-2023 Calcium [Mass/Vol] 8.9 mg/dL 8.5-10.1 [facility] Serum or plasma creatinine m easurement (mass/volume)Ordered By: Lucy Quick on 03-20-2023 Creatinine [Mass/Vol] 1.51 mg/dL 0.55-1.02 [facility] Comment on above: The validity of the calculated GFR & GFRAA in patients over 70 years has not been determined. Clinical correlation is essential. Serum or plasma urea nitroge n measurement (mass/volume)Ordered By: Lucy Quick on 03-20-2023 Urea nitrogen [Mass/Vol] 29 mg/dL 7-18 [facility] Thin prep Papanicolaou smear with manual screeningOrdered By: Lucy Quick on 03-20-2023 Thin prep Papanicolaou smear with manual screening 5 5-15 [facility] Basophil percentageOrdered B y: Lucy Quick on 03-13-2023 Chloride [Moles/Vol] 103 mmol/L 98-107 [facility] Glucose [Mass/Vol] 153 mg/dL 74-106 [facility] Comment on above: Fasting Glucose resu lt greater than or equal to 126 mg/dL suggests DIABETES MELLITUS per A.D.A. criteria. Potassium [Moles/Vol] 4.1 mmol/L 3.5-5.1 [facility] Sodium [Moles/Vol] 141 mmol/L 136-145 [facility] WBC (Bld) [#/Vol] 7.8 10*3/uL 4.4-11.0 [facility] Blood erythrocytes count (nu mber/volume)Ordered By: Lucy Quick on 03-13-2023 RBC (Bld) [#/Vol] 3.34 10*6/uL 4.2-5.4 [facility] Blood hemoglobin measurement (mass/volume)Ordered By: Lucy Quick on 03-13-2023 Hemoglobin (Bld) [Mass/Vol] 9.2 g/dL 12.0-15.0 [facility] Blood platelet mean volumeOr dered By: Lucy Quick on 03-13-2023 Platelet mean volume (Bld) [Entitic vol] 8.7 fL 6.2-12.0 [facility] Determination of erythrocyte mean corpuscular volume (MCV)Ordered By: Lucy Quick on 03-13-2023 MCV (RBC) [Entitic vol] 94.0 fL 81-99 [facility] Hematocrit Auto (Bld) [Volum e fraction]Ordered By: Lucy Quick on 03-13-2023 Hematocrit (Bld) [Volume fraction] 31.4 % 37-47 [facility] Laboratory - Chemistry and C hemistry - challengeOrdered By: Lucy Quick on 03-13-2023 CO2 [Moles/Vol] 31.0 mmol/L 21.0-32.0 [facility] Urea nitrogen/Creatinine [Mass ratio] 20.1 mg/mg 10-20 [facility] Laboratory - Hematology and Cell countsOrdered By: Lucy Quick on 03-13-2023 Erythrocyte distribution width (RBC) [Entitic vol] 47.4 fL 35.1-43.9 [facility] Erythrocyte distribution width (RBC) [Ratio] 13.8 % 11.6-14.6 [facility] MCH (RBC) [Entitic mass] 27.5 pg 27.0-32.0 [facility] MCHC Auto (RBC) [Mass/Vol]Or dered By: Lucy Quick on 03-13-2023 MCHC (RBC) [Mass/Vol] 29.3 g/dL 32-36 [facility] No Panel InformationOrdered By: Lucy Quick on 03-13-2023 Estimated GFR (MDRD) Amer 45 mL/min >60 [facility] Comment on above: GFR Calc Estimated GFR (MDRD) Non-Af Amer 37 mL/min >60 [facility] Comment on above: Non- GFR Calc Platelets bldOrdered By: Josee Quick on 03-13-2023 Platelets (Bld) [#/Vol] 265 10*3/uL 150-450 [facility] Serum or plasma calcium catracho urement (mass/volume)Ordered By: Lucy Quick on 03-13-2023 Calcium [Mass/Vol] 9.1 mg/dL 8.5-10.1 [facility] Serum or plasma creatinine m easurement (mass/volume)Ordered By: Lucy Quick on 03-13-2023 Creatinine [Mass/Vol] 1.49 mg/dL 0.55-1.02 [facility] Comment on above: The validity of the calculated GFR & GFRAA in patients over 70 years has not been determined. Clinical correlation is essential. Serum or plasma urea nitroge n measurement (mass/volume)Ordered By: Lucy Quick on 03-13-2023 Urea nitrogen [Mass/Vol] 30 mg/dL 7-18 [facility] Thin prep Papanicolaou smear with manual screeningOrdered By: Lucy Quick on 03-13-2023 Thin prep Papanicolaou smear with manual screening 7 5-15 [facility] CNPNon 03-09-2023 CNPN Normal [facility] Basophil percentageOrdered B y: Lucy Quick on 02-27-2023 Cholesterol [Mass/Vol] 173 mg/dL <200 [facility] Comment on above: <200 mg/dL Desirable 200-240 mg/dL Borderline >240 mg/dL High Risk Triglyceride [Mass/Vol] 152 mg/dL <199 [facility] Comment on above: The drugs N-Acetylcy steine and Metamizole may falsely depress this assay.Serum Triglycerides Reference Interval Normal <150 mg/dL Borderline high 150 - 199 mg/dL High 200 - 499 mg/dL Very High > or = 500 mg/dL Gentamicin, troughOrdered By : Lucy Quick on 02-27-2023 Gentamicin trough [Mass/Vol] 4.1 ug/mL <2.0 [facility] Comment on above: Critical Result(s) C alled at: 07:53:13 02/27/2023 by: [facility] Results read back by same.Gentamicin minimal values in excess of 2.0 ug/mL for longer than 10 days are potentially toxic. Peak Gentamicin therapeutic range: 4.0 - 8.0 ug/mL Laboratory - Chemistry and C hemistry - challengeOrdered By: Lucy Quick on 02-27-2023 Cobalamin (Vitamin B12) [Mass/Vol] 444 pg/mL 211-911 [facility] No Panel InformationOrdered By: Lucy Quick on 02-27-2023 Thyroid Stimulating Hormone (TSH) 1.60 uIU/mL 0.358-3.74 [facility] Vitamin D 25-Hydroxy 29.2 ng/mL [facility] Comment on above: Vitamin D 25(OH) Sta tus Range Deficiency <20 ng/mL (50nmol/L) Insufficiency 20 - 30 ng/mL (50 - 75 nmol/L) Sufficiency 30 - 100 ng/mL (75 - 250 nmol/L) Toxicity >100 ng/mL (>250 nmol/L) Serum or plasma cholesterol in HDL measurement (mass/volume)Ordered By: Lucy Quick on 02-27-2023 Cholesterol in HDL [Mass/Vol] 56 mg/dL >40 [facility] Comment on above: The drugs N-Acetylcy steine and Metamizole may falsely depress this assay. Reference Range HDL <40 mg/dL Low HDL Cholesterol HDL >or= 60 mg/dL High HDL Cholesterol Serum or plasma cholesterol in VLDL measurement (mass/volume)Ordered By: Lucy Quick on 02-27-2023 Cholesterol in VLDL [Mass/Vol] 30 mg/dL 5-40 [facility] Serum or plasma folate measu rement (mass/volume)Ordered By: Lucy Quick on 02-27-2023 Folate [Mass/Vol] 10.40 ng/mL 3.1-55.4 [facility] Serum or plasma low density lipoprotein (LDL) cholesterol measurement (mass/volume)Ordered By: Lucy Quick on 02-27-2023 Cholesterol in LDL [Mass/Vol] 87 mg/dL 0-130 [facility] Basophil percentageOrdered B y: Lucy Quick on 02-26-2023 Chloride [Moles/Vol] 106 mmol/L 98-107 [facility] Glucose [Mass/Vol] 216 mg/dL 74-106 [facility] Comment on above: Glucose result great er than or equal to 200 mg/dLsuggests DIABETES MELLITUS per A.D.A. criteria. Potassium [Moles/Vol] 4.1 mmol/L 3.5-5.1 [facility] Sodium [Moles/Vol] 138 mmol/L 136-145 [facility] WBC (Bld) [#/Vol] 8.3 10*3/uL 4.4-11.0 [facility] Blood erythrocytes count (nu mber/volume)Ordered By: Lucy Quick on 02-26-2023 RBC (Bld) [#/Vol] 3.42 10*6/uL 4.2-5.4 [facility] Blood hemoglobin measurement (mass/volume)Ordered By: Lucy Qucik on 02-26-2023 Hemoglobin (Bld) [Mass/Vol] 10.1 g/dL 12.0-15.0 [facility] Blood platelet mean volumeOr dered By: Lucy Quick on 02-26-2023 Platelet mean volume (Bld) [Entitic vol] 9.8 fL 6.2-12.0 [facility] Determination of erythrocyte mean corpuscular volume (MCV)Ordered By: Lucy Quick on 02-26-2023 MCV (RBC) [Entitic vol] 95.9 fL 81-99 [facility] Hematocrit Auto (Bld) [Volum e fraction]Ordered By: Lucy Quick on 02-26-2023 Hematocrit (Bld) [Volume fraction] 32.8 % 37-47 [facility] Laboratory - Chemistry and C hemistry - challengeOrdered By: Lucy Quick on 02-26-2023 CO2 [Moles/Vol] 25.0 mmol/L 21.0-32.0 [facility] Urea nitrogen/Creatinine [Mass ratio] 26.9 mg/mg 10-20 [facility] Laboratory - Hematology and Cell countsOrdered By: Lucy Quick on 02-26-2023 Erythrocyte distribution width (RBC) [Entitic vol] 49.3 fL 35.1-43.9 [facility] Erythrocyte distribution width (RBC) [Ratio] 14.1 % 11.6-14.6 [facility] MCH (RBC) [Entitic mass] 29.5 pg 27.0-32.0 [facility] MCHC Auto (RBC) [Mass/Vol]Or dered By: Lucy Quick on 02-26-2023 MCHC (RBC) [Mass/Vol] 30.8 g/dL 32-36 [facility] No Panel InformationOrdered By: Lucy Quick on 02-26-2023 Estimated GFR (MDRD) Amer 86 mL/min >60 [facility] Comment on above: GFR Calc Estimated GFR (MDRD) Non-Af Amer 71 mL/min >60 [facility] Comment on above: Non- GFR Calc Platelets bldOrdered By: Josee roro Dustin on 02-26-2023 Platelets (Bld) [#/Vol] 294 10*3/uL 150-450 [facility] Serum or plasma calcium catracho urement (mass/volume)Ordered By: Lucy Quick on 02-26-2023 Calcium [Mass/Vol] 8.4 mg/dL 8.5-10.1 [facility] Serum or plasma creatinine m easurement (mass/volume)Ordered By: Lucy Quick on 02-26-2023 Creatinine [Mass/Vol] 0.86 mg/dL 0.55-1.02 [facility] Comment on above: The validity of the calculated GFR & GFRAA in patients over 70 years has not been determined. Clinical correlation is essential. Serum or plasma peak gentami shannen level (mass/volume)Ordered By: Lucy Quick on 02-26-2023 Gentamicin peak [Mass/Vol] 4.6 ug/mL 4.0-8.0 [facility] Comment on above: GENTAMICIN <4.0 ug/m l IS SUB-THERAPEUTIC > 10.0 ug/mL IS TOXIC Serum or plasma urea nitroge n measurement (mass/volume)Ordered By: Lucy Quick on 02-26-2023 Urea nitrogen [Mass/Vol] 23 mg/dL 7-18 [facility] Thin prep Papanicolaou smear with manual screeningOrdered By: Lucy Quick on 02-26-2023 Thin prep Papanicolaou smear with manual screening 7 5-15 [facility] Culture, urineOrdered By: Jemal Campos on 02-23-2023 Bacteria identified Cx Nom (U) ESBL Klebsiella pneumoniae pne [facility] CNPNon 02-22-2023 CNPN Normal [facility] Basophil percentageOrdered B y: Lucy Quick on 02-20-2023 Basophil percentage 0-5 SEEN /hpf 0-5 [facility] Bilirubin Test strip Ql (U)O rdered By: Lcuy Quick on 02-20-2023 Bilirubin Ql (U) Negative Negative [facility] Calcium oxalate crystals det ection in urine sediment by light microscopyOrdered By: Lucy Quick on 02-20-2023 Calcium oxalate crystals LM Ql (Urine sed) 1+ /hpf [facility] Ketones Test strip Ql (U)Ord ered By: Lucy Quick on 02-20-2023 Ketones Ql (U) 50 mg/dl Negative [facility] Mucus LM Ql (Urine sed)Order ed By: Lucy Quick on 02-20-2023 Mucus Ql (Urine sed) 0 SEEN /hpf [facility] Nitrite Test strip Ql (U)Ord ered By: Lucy Quick on 02-20-2023 Nitrite Ql (U) Negative Negative [facility] Protein Test strip Ql (U)Ord ered By: Lucy Quick on 02-20-2023 Protein Ql (U) 15 mg/dl Negative [facility] Squamous epithelial cells de tection in urine sediment by light microscopyOrdered By: Lucy Quick on 02-20-2023 Epithelial cells.squamous LM Ql (Urine sed) 0-5 SEEN /hpf 5-10 [facility] Urine blood detectionOrdered By: Lucy Quick on 02-20-2023 RBC Ql (U) Negative Negative [facility] RBC Ql (U) 0 SEEN /hpf 0-5 [facility] Urine clarityOrdered By: Josee Quick on 02-20-2023 Clarity (U) Clear Clear [facility] Urine color determinationOrd ered By: Lucy Quick on 02-20-2023 Color (U) Yellow Yellow [facility] Urine glucose detectionOrder ed By: Lucy Quick on 02-20-2023 Glucose Ql (U) 50 mg/dl Normal [facility] Urine leukocyte esterase det ection by dipstickOrdered By: Lucy Quick on 02-20-2023 Leukocyte esterase Test strip Ql (U) 25 /ul Negative [facility] Urine pHOrdered By: Lucy mcguire on 02-20-2023 pH (U) 5.0 [pH] 5.0 - 8.0 [facility] Urine sediment bacteria coun t by microscopy (number/high power field)Ordered By: Lucy Quick on 02-20-2023 Bacteria LM.HPF (Urine sed) [#/Area] 1 /[HPF] None Seen [facility] [facility] Urine specific gravity measu rementOrdered By: Lucy Quick on 02-20-2023 Specific gravity (U) [Rel density] 1.020 1.002-1.030 [facility] Urobilinogen Auto test strip Ql (U)Ordered By: Lucy Quick on 02-20-2023 Urobilinogen Ql (U) Normal mg/dl Normal [facility] Basophil percentageOrdered B y: Lucy Quick on 02-19-2023 Bilirubin [Mass/Vol] 0.30 mg/dL 0.20-1.00 [facility] Comment on above: For patients on eltr ombopag therapy, use of Dimension Gibson TBIL is not recommended. Chloride [Moles/Vol] 97 mmol/L 98-107 [facility] Glucose [Mass/Vol] 155 mg/dL 74-106 [facility] Comment on above: Fasting Glucose resu lt greater than or equal to 126 mg/dL suggests DIABETES MELLITUS per A.D.A. criteria. Potassium [Moles/Vol] 3.3 mmol/L 3.5-5.1 [facility] Protein [Mass/Vol] 5.9 g/dL 6.4-8.2 [facility] Sodium [Moles/Vol] 139 mmol/L 136-145 [facility] WBC (Bld) [#/Vol] 7.3 10*3/uL 4.4-11.0 [facility] Blood erythrocytes count (nu mber/volume)Ordered By: Luyc Quick on 02-19-2023 RBC (Bld) [#/Vol] 3.00 10*6/uL 4.2-5.4 [facility] Blood hemoglobin measurement (mass/volume)Ordered By: Lucy Quick on 02-19-2023 Hemoglobin (Bld) [Mass/Vol] 8.4 g/dL 12.0-15.0 [facility] Blood platelet mean volumeOr dered By: Lucy Quick on 02-19-2023 Platelet mean volume (Bld) [Entitic vol] 8.7 fL 6.2-12.0 [facility] Determination of erythrocyte mean corpuscular volume (MCV)Ordered By: Lucy Quick on 02-19-2023 MCV (RBC) [Entitic vol] 98.7 fL 81-99 [facility] Hematocrit Auto (Bld) [Volum e fraction]Ordered By: Lucy Quick on 02-19-2023 Hematocrit (Bld) [Volume fraction] 29.6 % 37-47 [facility] Laboratory - Chemistry and C hemistry - challengeOrdered By: Lucy Quick on 02-19-2023 ALP [Catalytic activity/Vol] 53 U/L 45-117 [facility] ALT [Catalytic activity/Vol] 15 U/L 13-56 [facility] CO2 [Moles/Vol] 36.0 mmol/L 21.0-32.0 [facility] Globulin (S) [Mass/Vol] 3.3 g/dL 2.2-4.2 [facility] Urea nitrogen/Creatinine [Mass ratio] 12.5 mg/mg 10-20 [facility] Laboratory - Hematology and Cell countsOrdered By: Lucy Quick on 02-19-2023 Erythrocyte distribution width (RBC) [Entitic vol] 53.8 fL 35.1-43.9 [facility] Erythrocyte distribution width (RBC) [Ratio] 14.9 % 11.6-14.6 [facility] MCH (RBC) [Entitic mass] 28.0 pg 27.0-32.0 [facility] MCHC Auto (RBC) [Mass/Vol]Or dered By: Lucy Quick on 02-19-2023 MCHC (RBC) [Mass/Vol] 28.4 g/dL 32-36 [facility] No Panel InformationOrdered By: Lucy Quick on 02-19-2023 Estimated GFR (MDRD) Amer 50 mL/min >60 [facility] Comment on above: GFR Calc Estimated GFR (MDRD) Non-Af Amer 41 mL/min >60 [facility] Comment on above: Non- GFR Calc Platelets bldOrdered By: Josee Quick on 02-19-2023 Platelets (Bld) [#/Vol] 353 10*3/uL 150-450 [facility] Serum or plasma albumin catracho urement (mass/volume)Ordered By: Lucy Quick on 02-19-2023 Albumin [Mass/Vol] 2.6 g/dL 3.2-5.0 [facility] Serum or plasma albumin/glob ulin mass ratioOrdered By: Lucy Quick on 02-19-2023 Albumin/Globulin [Mass ratio] 0.8 {ratio} 0.9-2.4 [facility] Serum or plasma calcium catracho urement (mass/volume)Ordered By: Lucy Quick on 02-19-2023 Calcium [Mass/Vol] 8.8 mg/dL 8.5-10.1 [facility] Serum or plasma creatinine m easurement (mass/volume)Ordered By: Lucy Quick on 02-19-2023 Creatinine [Mass/Vol] 1.36 mg/dL 0.55-1.02 [facility] Comment on above: The validity of the calculated GFR & GFRAA in patients over 70 years has not been determined. Clinical correlation is essential. Serum or plasma urea nitroge n measurement (mass/volume)Ordered By: Lucy Quick on 02-19-2023 Urea nitrogen [Mass/Vol] 17 mg/dL 7-18 [facility] Thin prep Papanicolaou smear with manual screeningOrdered By: Lucy Quick on 02-19-2023 Thin prep Papanicolaou smear with manual screening 14 U/L 15-37 [facility] Thin prep Papanicolaou smear with manual screening 6 5-15 [facility] CASE MANAGEMon 02-15-2023 CASE MANAGEM Normal [facility] CNDSon 02-15-2023 CNDS Normal [facility] CONSULT PROGon 02-15-2023 CONSULT PROG Normal [facility] CASE MANAGEMon 02-14-2023 CASE MANAGEM Normal [facility] 25(OH)D3 SerPl-mCncon 2022 25-hydroxyvitamin D3 [Mass/Vol] 9.2 ng/mL Low >=30.0 [facility] Comment on above: Order Comment: Speci men Type: BLOOD SPECIMENOrdering Facility: [facility] Address: [address] [place] [id number] Result Comment: Clas sification of 25 [place] Vitamin D status:Deficiency: <= 20.0 ng/ml.Insufficiency: 21.0-29.0 ng/ml.Sufficiency: >= 30.0 ng/ml. Performed By: #### 1 989-3 ####[facility]ATORYCLIA [id number] [address] Ammonia Plas-sCncon 02-14-20 Ammonia (P) [Moles/Vol] 24 umol/L Normal 11 A [facility] Comment on above: Order Comment: Speci men Type: BLOOD SPECIMENOrdering Facility: [facility] Address: [address] [place] [address] Performed By: #### 1 6362-6 ####[facility]ATORYCLIA [id number] [address] Bacteria Ur Culton 3 Bacteria identified Cx Nom (U) CULTURE, URINE: No growth (<100 CFU/ml) Normal [facility] Comment on above: Performed By: #### 6 30-4 ####[facility]ATORYCLIA [id number] [address] CASE MGT INIT ASSESon 2022 CASE MGT INIT ASSES Normal [facility] CBC panel Auto (Bld)on 02-13 Erythrocyte distribution width (RBC) [Ratio] 15.6 % High 11.5-15.0 [facility] Comment on above: Order Comment: Speci men Type: BLOOD SPECIMENOrdering Facility: [facility] Address: [address] [place] [address] Performed By: #### 5 8410-2 ####[facility]ORATORYCLIA [id number] [address] [facility] Hematocrit (Bld) [Volume fraction] 28.4 % Low 36.0-46.0 [facility] Comment on above: Order Comment: Speci men Type: BLOOD SPECIMENOrdering Facility: [facility] Address: [address] [place] [address] Performed By: #### 5 8410-2 ####[facility]ATORYCLIA [id number] [address] [place] Hemoglobin (Bld) [Mass/Vol] 8.2 g/dL Low 11.5-15.5 [facility] Comment on above: Order Comment: Speci men Type: BLOOD SPECIMENOrdering Facility: [facility] Address: [address] [place] [address] Performed By: #### 5 8410-2 ####[facility]ATORYCLIA [id number] [address] MCH (RBC) [Entitic mass] 28.0 pg Normal 26.0-34.0 [facility] Comment on above: Order Comment: Speci men Type: BLOOD SPECIMENOrdering Facility: [facility] Address: [address] [place] [address] Performed By: #### 5 8410-2 ####[facility]ORYCLIA [id number] [address] MCHC (RBC) [Mass/Vol] 28.9 g/dL Low 30.5-36.0 [facility] Comment on above: Order Comment: Speci men Type: BLOOD SPECIMENOrdering Facility: [facility] Address: [address] [place] [address] Performed By: #### 5 8410-2 ####[facility]ATORYCLIA [id number] [address] MCV (RBC) [Entitic vol] 96.9 fL Normal 80.0-100.0 [facility] Comment on above: Order Comment: Speci men Type: BLOOD SPECIMENOrdering Facility: [facility] Address: [address] [place] [address] Performed By: #### 5 8410-2 ####[facility]ATORYCLIA [id number] [address] Nucleated RBC (Bld) [#/Vol] 0.02 10*3/uL High <0.01 [facility] Comment on above: Order Comment: Speci men Type: BLOOD SPECIMENOrdering Facility: [facility] Address: [address] [place] [address] Performed By: #### 5 8410-2 ####[facility]ORYCLIA [id number] [address] Platelet mean volume (Bld) [Entitic vol] 8.5 fL Low 9.0-12.7 [facility] Comment on above: Order Comment: Speci men Type: BLOOD SPECIMENOrdering Facility: [facility] Address: [address] [place] [address] Performed By: #### 5 8410-2 ####[facility]ATORYCLIA [id number] [place] [address] [place] Platelets (Bld) [#/Vol] 287 10*3/uL Normal 150-400 [facility] Comment on above: Order Comment: Speci men Type: BLOOD SPECIMENOrdering Facility: [facility] Address: [address] [place] [address] Performed By: #### 5 8410-2 ####[facility]ORYCLIA [id number] [address] [place] [facility] RBC (Bld) [#/Vol] 2.93 10*6/uL Low 3.90-5.20 [facility] Comment on above: Order Comment: Speci men Type: BLOOD SPECIMENOrdering Facility: [facility] Address: [address] [place] [address] Performed By: #### 5 8410-2 ####[facility]ATORYCLIA [id number] [address] [place] WBC (Bld) [#/Vol] 7.53 10*3/uL Normal 3.70-11.00 [facility] Comment on above: Order Comment: Speci men Type: BLOOD SPECIMENOrdering Facility: [facility] Address: [address] [place] [address] Performed By: #### 5 8410-2 ####[facility]ATORYCLIA [id number] [address] [place] CONSULT PROGon 02-13-2023 CONSULT PROG Normal [facility] CONSULT PROG Normal [facility] Comp Metab 2000 Pnl SerPlon 02-13-2023 Chloride [Moles/Vol] 98 mmol/L Low 102-109 [facility] Comment on above: Order Comment: Speci men Type: BLOOD SPECIMENOrdering Facility: [facility] Address: [address] [place] [address] Performed By: #### 2 4323-05, 2132-06 ####[facility]ATORYCLIA [id number] [address] Order Comment: Speci men Type: VENOUS BLOOD SPECIMENOrdering Facility: [facility] Address: [address] [place] [address] Performed By: #### 2 4344-4 ####[facility]ATORYCLIA [id number] [address] [facility] Comprehensive metabolic 2000 panelon 02-13-2023 Albumin [Mass/Vol] 3.3 g/dL Low 3.9-4.9 [facility] Comment on above: Order Comment: Speci men Type: BLOOD SPECIMENOrdering Facility: [facility] Address: [address] [place] [address] Performed By: #### 2 4323-05, 2132-06 ####[facility]ORYCLIA [id number] [address] [place] ALP [Catalytic activity/Vol] 65 U/L Normal 34-123 [facility] Comment on above: Order Comment: Speci men Type: BLOOD SPECIMENOrdering Facility: [facility] Address: [address] [place] [address] Performed By: #### 2 4323-05, 2132-06 ####[facility]ATORYCLIA [id number] [address] [place] ALT With P-5'-P [Catalytic activity/Vol] 8 U/L Normal 7-38 [facility] Comment on above: Order Comment: Speci men Type: BLOOD SPECIMENOrdering Facility: [facility] Address: [address] [place] [address] Performed By: #### 2 4323-05, 2132-06 ####[facility]ORATORYCLIA [id number] [place] [address] [place] Anion gap [Moles/Vol] 8 mmol/L Low 9-18 [facility] Comment on above: Order Comment: Speci men Type: BLOOD SPECIMENOrdering Facility: [facility] Address: [address] [place] [address] Performed By: #### 2 4328, 2132-06 ####[facility]ATORYCLIA [id number] [place] [address] [place] AST With P-5'-P [Catalytic activity/Vol] 12 U/L Low 13-35 [facility] Comment on above: Order Comment: Speci men Type: BLOOD SPECIMENOrdering Facility: [facility] Address: [address] [place] [address] Performed By: #### 2 4328, 2132-06 ####[facility]ATORYCLIA [id number] [address] [place] Bilirubin [Mass/Vol] 0.3 mg/dL Normal 0.2-1.3 [facility] Comment on above: Order Comment: Speci men Type: BLOOD SPECIMENOrdering Facility: [facility] Address: [address] [place] [address] Performed By: #### 2 4323-05, 2132-06 ####[facility]ATORYCLIA [id number] [place] [address] [place] Calcium [Mass/Vol] 8.7 mg/dL Normal 8.5-10.2 [facility] Comment on above: Order Comment: Speci men Type: BLOOD SPECIMENOrdering Facility: [facility] Address: [address] [place] [address] Performed By: #### 2 4323-05, 2132-06 ####[facility]ATORYCLIA [id number] [place] [address] [place] CO2 [Moles/Vol] 38 mmol/L High 22-30 [facility] Comment on above: Order Comment: Speci men Type: BLOOD SPECIMENOrdering Facility: [facility] Address: [address] [phone] Performed By: #### 2 43238, 2132-06 ####[facility] HOSPITALIA [id number] [address] [place] [facility] Creatinine [Mass/Vol] 1.37 mg/dL High 0.58-0.96 [facility] Comment on above: Order Comment: Speci men Type: BLOOD SPECIMENOrdering Facility: [facility] Address: [address] [place] [address] Performed By: #### 2 4328, 2132-06 ####[facility] CENTERCLIA [id number] [address] ESTIMATED GLOMERULAR FILTRATION RATE 43 mL/min/1.73m??? Low >=60 [facility] Comment on above: Order Comment: Speci men Type: BLOOD SPECIMENOrdering Facility: [facility] Address: [address] [place] [address] Result Comment: Petra mated Glomerular Filtration Rate [...] GFR. Performed By: #### 2 4323-8, 2132-06 ####[facility]ATORYCLIA [id number] [address] [place] Glucose [Mass/Vol] 118 mg/dL High 74-99 [facility] Comment on above: Order Comment: Speci men Type: BLOOD SPECIMENOrdering Facility: [facility] Address: [address] [place] [address] Result Comment: The [place] [employer] (ADA) provides guidance for cutoff [...] Standards of Medical Care in Diabetes 2016, [place] [employer]. Diabetes Care. 2016.39(Suppl 1). Performed By: #### 2 43201-03, 2132-06 ####[facility]ATORYCLIA [id number] [place] [address] [place] Potassium [Moles/Vol] 4.1 mmol/L Normal 3.7-5.1 [facility] Comment on above: Order Comment: Speci men Type: BLOOD SPECIMENOrdering Facility: [facility] Address: [address] [place] [address] Performed By: #### 2 4323-05, 2132-06 ####[facility]ATORYCLIA [id number] [place] [address] [place] Protein [Mass/Vol] 5.2 g/dL Low 6.3-8.0 [facility] Comment on above: Order Comment: Speci men Type: BLOOD SPECIMENOrdering Facility: [facility] Address: [address] [place] [address] Performed By: #### 2 4323-05, 2132-06 ####[facility]ATORYCLIA [id number] [place] [address] [place] Sodium [Moles/Vol] 144 mmol/L Normal 136-144 [facility] Comment on above: Order Comment: Speci men Type: BLOOD SPECIMENOrdering Facility: [facility] Address: [address] [place] [address] Performed By: #### 2 4323-05, 2132-06 ####[facility]ATORYCLIA [id number] [place] [address] [place] Urea nitrogen [Mass/Vol] 21 mg/dL Normal 7-21 [facility] Comment on above: Order Comment: Speci men Type: BLOOD SPECIMENOrdering Facility: [facility] Address: [address] [address] Performed By: #### 2 4323-8, 213-9 ####[facility]ATORYCLIA [id number] [address] Gas and Carbon monoxide pane l (BldV)on 02-13-2023 Base excess Calc (BldV) [Moles/Vol] 10 mmol/L High 0-2 [facility] Comment on above: Order Comment: Speci men Type: VENOUS BLOOD SPECIMENOrdering Facility: [facility] Address: [address] [address] Performed By: #### 2 4344-4 ####[facility]ATORYCLIA [id number] [address] Body temperature 98.42 [degF] Normal [facility] Comment on above: Order Comment: Speci men Type: VENOUS BLOOD SPECIMENOrdering Facility: [facility] Address: [address] [place] [address] Performed By: #### 2 4344-4 ####[facility]ATORYCLIA [id number] [address] Calcium.ionized (BldV) [Mass/Vol] 1.16 mmol/L Normal 1.08-1.30 [facility] Comment on above: Order Comment: Speci men Type: VENOUS BLOOD SPECIMENOrdering Facility: [facility] Address: [address] [address] Performed By: #### 2 4344-4 ####[facility]ATORYCLIA [id number] [address] Calcium.ionized adjusted to pH 7.4 (BldA) [Moles/Vol] 1.14 mmol/L Normal 1.08-1.30 [facility] Comment on above: Order Comment: Speci men Type: VENOUS BLOOD SPECIMENOrdering Facility: [facility] Address: [address] [address] Performed By: #### 2 4344-4 ####[facility]ATORYCLIA [id number] [address] [place] Carboxyhemoglobin (BldV) [Mass fraction] 2.3 % High 0.0-2.0 [facility] Comment on above: Order Comment: Speci men Type: VENOUS BLOOD SPECIMENOrdering Facility: [facility] Address: [address] [place] [address] Result Comment: Carb oxyhemoglobin Reference Range for Smokers: 2.0-8.0% Performed By: #### 2 4344-4 ####[facility]ATORYCLIA [id number] [address] [place] CO2 (BldV) [Partial pressure] 65 mm[Hg] High 42-55 [facility] Comment on above: Order Comment: Speci men Type: VENOUS BLOOD SPECIMENOrdering Facility: [facility] Address: [address] [place] [address] Performed By: #### 2 4344-4 ####[facility]ATORYCLIA [id number] [address] [place] CO2 [Moles/Vol] 34 mmol/L High 25-29 [facility] Comment on above: Order Comment: Speci men Type: VENOUS BLOOD SPECIMENOrdering Facility: [facility] Address: [address] [place] [address] Performed By: #### 2 4344-4 ####[facility]ORYCLIA [id number] [address] [place] CO2 adjusted to patient's actual temperature (BldV) [Partial pressure] 65 mmHg High 42-55 [facility] Comment on above: Order Comment: Speci men Type: VENOUS BLOOD SPECIMENOrdering Facility: [facility] Address: [address] [place] [address] Performed By: #### 2 4344-4 ####[facility]ATORYCLIA [id number] [address] [place] Glucose [Mass/Vol] 116 mg/dL High 60-105 [facility] Comment on above: Order Comment: Speci men Type: VENOUS BLOOD SPECIMENOrdering Facility: [facility] Address: [address] [place] [address] Performed By: #### 2 4344-4 ####[facility]ORYCLIA [id number] [address] [place] HCO3 (Bld) [Moles/Vol] 36 mmol/L High 24-28 [facility] Comment on above: Order Comment: Speci men Type: VENOUS BLOOD SPECIMENOrdering Facility: [facility] Address: [address] [address] Performed By: #### 2 4344-4 ####[facility]ATORYCLIA [id number] [address] [facility] Hematocrit (Bld) [Volume fraction] 27.0 % Low 36.0-46.0 [facility] Comment on above: Order Comment: Speci men Type: VENOUS BLOOD SPECIMENOrdering Facility: [facility] Address: [address] [address] Performed By: #### 2 4344-4 ####[facility]ORYCLIA [id number] [address] Hemoglobin (Bld) [Mass/Vol] 8.7 g/dL Low 11.5-15.5 [facility] Comment on above: Order Comment: Speci men Type: VENOUS BLOOD SPECIMENOrdering Facility: [facility] Address: [address] [place] [address] Performed By: #### 2 4344-4 ####[facility]ORYCLIA [id number] [address] [place] Lactate [Moles/Vol] 0.7 mmol/L Normal 0.5-2.2 [facility] Comment on above: Order Comment: Speci men Type: VENOUS BLOOD SPECIMENOrdering Facility: [facility] Address: [address] [address] Performed By: #### 2 4344-4 ####[facility]ORYCLIA [id number] [address] [facility] Methemoglobin (Bld) [Mass fraction] 1.5 % Normal 0.0-1.5 [facility] Comment on above: Order Comment: Speci men Type: VENOUS BLOOD SPECIMENOrdering Facility: [facility] Address: [address] [address] Performed By: #### 2 4344-4 ####[facility]ATORYCLIA [id number] [address] O2 THERAPY NC = Nasal Cannula Normal [facility] Comment on above: Order Comment: Speci men Type: VENOUS BLOOD SPECIMENOrdering Facility: [facility] Address: [address] [address] Result Comment: 4 Performed By: #### 2 4344-4 ####[facility]ATORYCLIA [id number] [address] [place] Oxygen (BldV) [Partial pressure] 145 mm[Hg] High 35-45 [facility] Comment on above: Order Comment: Speci men Type: VENOUS BLOOD SPECIMENOrdering Facility: [facility] Address: [address] [address] Performed By: #### 2 4344-4 ####[facility]ORYCLIA [id number] [address] Oxygen adjusted to patient's actual temperature (BldV) [Partial pressure] 145 mmHg High 35-45 [facility] Comment on above: Order Comment: Speci men Type: VENOUS BLOOD SPECIMENOrdering Facility: [facility] Address: [address] [address] Performed By: #### 2 4344-4 ####[facility]ORATORYCLIA [id number] [address] [place] Oxygen saturation in Venous blood 99 % High 60-85 [facility] Comment on above: Order Comment: Speci men Type: VENOUS BLOOD SPECIMENOrdering Facility: [facility] Address: [address] [address] Performed By: #### 2 4344-4 ####[facility]ATORYCLIA [id number] [address] [place] Oxyhemoglobin (BldV) [Mass fraction] 95 % High 60-85 [facility] Comment on above: Order Comment: Speci men Type: VENOUS BLOOD SPECIMENOrdering Facility: [facility] Address: [address] [place] [address] Performed By: #### 2 4344-4 ####[facility]ORATORYCLIA [id number] [address] [place] pH (BldV) 7.36 [pH] Normal 7.32-7.42 [facility] Comment on above: Order Comment: Speci men Type: VENOUS BLOOD SPECIMENOrdering Facility: [facility] Address: [address] [place] [address] Performed By: #### 2 4344-4 ####[facility]ORATORYCLIA [id number] [address] pH adjusted to patient's actual temperature (BldV) 7.36 Normal 7.32-7.42 [facility] Comment on above: Order Comment: Speci men Type: VENOUS BLOOD SPECIMENOrdering Facility: [facility] Address: [address] [place] [address] Performed By: #### 2 4344-4 ####[facility]ORATORYCLIA [id number] [address] [place] Potassium [Moles/Vol] 3.9 mmol/L Normal 3.5-5.0 [facility] Comment on above: Order Comment: Speci men Type: VENOUS BLOOD SPECIMENOrdering Facility: [facility] Address: [address] [place] [address] Performed By: #### 2 4344-4 ####[facility]ORATORYCLIA [id number] [address] [place] Sodium [Moles/Vol] 143 mmol/L Normal 136-144 [facility] Comment on above: Order Comment: Speci men Type: VENOUS BLOOD SPECIMENOrdering Facility: [facility] Address: [address] [address] Performed By: #### 2 4344-4 ####[facility] HOSPITALIA [id number] [address] HbA1c (Bld)on 02-13-2023 Average glucose Estimated from glycated hemoglobin (Bld) [Mass/Vol] 151 mg/dL Normal [facility] Comment on above: Order Comment: Scott seals Type: BLOOD SPECIMENOrdering Facility: [facility] Address: [address] [address] Result Comment: eAG: (Estimated average glucose) is a calculated value from HgbA1c and is passenger service representative of the average blood glucose level in the last 2-3 month period. Performed By: #### 5 5454-3 ####[facility] CENTERCLIA [id number] [address] HbA1c (Bld) [Mass fraction] 6.9 % High 4.3-5.6 [facility] Comment on above: Order Comment: Scott seals Type: BLOOD SPECIMENOrdering Facility: [facility] Address: [address] [place] [address] Result Comment: Amer ican Diabetes Association guidelines indicate that patients with HgbA1c in the range 5.7-6.4% are at increased risk for development of diabetes, and intervention by lifestyle modification may be beneficial. HgbA1c greater or equal to 6.5% is considered diagnostic of diabetes. Performed By: #### 5 5454-3 ####[facility] HOSPITALIA [id number] [address] [facility] Lipid 1996 panelon 3 Cholesterol [Mass/Vol] 118 mg/dL Normal <200 [facility] Comment on above: Order Comment: [facility] Type: BLOOD SPECIMENOrdering Facility: [facility] Address: [address] [address] Result Comment: <200 mg/dL, Desirable 200-239 mg/dL, Borderline high>239 mg/dL, High Performed By: #### 1 9123-9, 38071-0, 2777-1, 6-3 ####[facility] CENTERCLIA [id number] [address] Cholesterol in HDL [Mass/Vol] 39 mg/dL Low >39 [facility] Comment on above: Order Comment: Speci bozena Type: BLOOD SPECIMENOrdering Facility: [facility] Address: [address] [place] [address] Result Comment: 40-5 9 mg/dL, Acceptable>59 mg/dL, High: Negative risk factor for coronary heart disease<40 mg/dL, Low: Positive risk factor for coronary heart disease Performed By: #### 1 9123-9, 05729-9, 2777-1, 6-3 ####[facility] CENTERCLIA [id number] [address] Cholesterol in LDL [Mass/Vol] 40 mg/dL Normal <100 [facility] Comment on above: Order Comment: [facility] Type: BLOOD SPECIMENOrdering Facility: [facility] Address: [address] [place] [address] Result Comment: <100 mg/dL, Optimal 100-129 mg/dL, Near optimal/above optimal 130-159 mg/dL, Borderline high 160-189 mg/dL, High>189 mg/dL, Very highSecondary prevention optimal LDL Cholesterol levels are recommended to be < 70 mg/dL Performed By: #### 1 9123-9, 18877-7, 2777-1, 6-3 ####[facility]ORATORYCLIA [id number] [address] Cholesterol in LDL/Cholesterol in HDL [Mass ratio] 1.03 {ratio} Normal <2.54 [facility] Comment on above: Order Comment: Speci bozena Type: BLOOD SPECIMENOrdering Facility: [facility] Address: [address] [place] [address] Result Comment: Refe rence:1. National Cholesterol Education Program ATP III Guideline At-A-Glance Quick Desk Reference: National Heart, Lung, and Blood Avery. National Institutes of Health. 2001: NIH Publication No. 01-3305.2. An International Atherosclerosis Society position paper: global recommendations for the management of dyslipidemia: executive summary, Atherosclerosis. 2014: 232(2):410-413. Performed By: #### 1 9123-9, 73403-6, 7-1, 6-3 ####[facility]ORATORYCLIA [id number] [place], [place] [address] [place] [address] [place] Cholesterol in VLDL [Mass/Vol] 39 mg/dL High <30 [facility] Comment on above: Order Comment: Speci men Type: BLOOD SPECIMENOrdering Facility: [facility] Address: [address] [address] Performed By: #### 1 9123-9, 21970-6, 2776-, 6-3 ####[facility] CENTERCLIA [id number] [address] Cholesterol non HDL [Mass/Vol] 79 mg/dL Normal <130 [facility] Comment on above: Order Comment: Speci men Type: BLOOD SPECIMENOrdering Facility: [facility] Address: [address] [place] [address] Result Comment: <130 mg/dL, Optimal 130-159 mg/dL, Near optimal/above optimal 160-189 mg/dL, Borderline high 190-219 mg/dL, High>219 mg/dL, Very highSecondary prevention optimal non HDL Cholesterol levels are recommended to be <100 mg/dL Performed By: #### 1 9123-9, 57007-2, 2776-1, 6-3 ####[facility]ORATORYCLIA [id number] [address] [place] Cholesterol.total/Isatu sterol in HDL [Mass ratio] 3.03 {ratio} Normal <5.10 [facility] Comment on above: Order Comment: Luhi men Type: BLOOD SPECIMENOrdering Facility: [facility] Address: [address] [place] [address] Performed By: #### 1 9123-9, 78097-3, 7-1, 6-3 ####[facility]ORATORYCLIA [id number] [address] [facility] FASTING TIME 12 hrs Normal [facility] Comment on above: Order Comment: Speci men Type: BLOOD SPECIMENOrdering Facility: [facility] Address: [address] [place] [address] Performed By: #### 1 9123-9, 68630-3, 277-, 3015-3 ####[facility]ORATORYCLIA [id number] [address] [place] Triglyceride [Mass/Vol] 194 mg/dL High <150 [facility] Comment on above: Order Comment: Speci men Type: BLOOD SPECIMENOrdering Facility: [facility] Address: [address] [place] [address] Result Comment: <150 mg/dL, Normal 150-199 mg/dL, Borderline high 200-499 mg/dL, High>499 mg/dL, Very high Performed By: #### 1 9123-9, 77296-6, 2776-, 3015-3 ####[facility]ORATORYCLIA [id number] [place] [address] [place] Magnesium SerPl-mCncon 02-13 Magnesium [Mass/Vol] 1.7 mg/dL Normal 1.7-2.3 [facility] Comment on above: Order Comment: Speci men Type: BLOOD SPECIMENOrdering Facility: [facility] Address: [address] [place] [address] Performed By: #### 1 9123-9, 99257-1, 277-, 3015-3 ####[facility]ORATORYCLIA [id number] [place] [address] [place] Phosphate SerPl-mCncon 02-13 Phosphate [Mass/Vol] 3.3 mg/dL Normal 2.7-4.8 [facility] Comment on above: Order Comment: Speci men Type: BLOOD SPECIMENOrdering Facility: [facility] Address: [address] [place] [address] Performed By: #### 1 9123-9, 66368-1, 277-, 3015-3 ####[facility]ORATORYCLIA [id number] [address] TSH SerPl-aCncon 02-13-2023 TSH Qn 2.810 m[IU]/L Normal 0.270-4.200 [facility] Comment on above: Order Comment: Speci men Type: BLOOD SPECIMENOrdering Facility: [facility] Address: [address] [place] [address] Performed By: #### 1 9123-9, 86453-7, 2777-1, 3016-3 ####[facility]ATORYCLIA [id number] [address] [place] Vit B12 SerPl-mCncon 023 Cobalamin (Vitamin B12) [Mass/Vol] 565 pg/mL Normal 232-1245 [facility] Comment on above: Order Comment: Speci men Type: BLOOD SPECIMENOrdering Facility: [facility] Address: [address] [place] [address] Performed By: #### 2 4323-8, 2132-9 ####[facility]ORATORYCLIA [id number] [address] [place] ALLIED HEALTHon 02-12-2023 ALLIED HEALTH Normal [facility] CBC panel Auto (Bld)on 02-12 Erythrocyte distribution width (RBC) [Ratio] 15.7 % High 11.5-15.0 [facility] Comment on above: Order Comment: Speci men Type: BLOOD SPECIMENOrdering Facility: [facility] Address: [address] [place] [address] Performed By: #### 5 8410-2 ####[facility]ORATORYCLIA [id number] [address] Hematocrit (Bld) [Volume fraction] 31.0 % Low 36.0-46.0 [facility] Comment on above: Order Comment: Speci men Type: BLOOD SPECIMENOrdering Facility: [facility] Address: [address] [place] [address] Performed By: #### 5 8410-2 ####[facility]ORATORYCLIA [id number] [address] Hemoglobin (Bld) [Mass/Vol] 9.0 g/dL Low 11.5-15.5 [facility] Comment on above: Order Comment: Speci men Type: BLOOD SPECIMENOrdering Facility: [facility] Address: [address] [place] [address] Performed By: #### 5 8410-2 ####[facility]ATORYCLIA [id number] [address] MCH (RBC) [Entitic mass] 28.6 pg Normal 26.0-34.0 [facility] Comment on above: Order Comment: Speci men Type: BLOOD SPECIMENOrdering Facility: [facility] Address: [address] [place] [address] Performed By: #### 5 8410-2 ####[facility]ATORYCLIA [id number] [address] MCHC (RBC) [Mass/Vol] 29.0 g/dL Low 30.5-36.0 [facility] Comment on above: Order Comment: Speci men Type: BLOOD SPECIMENOrdering Facility: [facility] Address: [address] [place] [address] Performed By: #### 5 8410-2 ####[facility]ORATORYCLIA [id number] [address] MCV (RBC) [Entitic vol] 98.4 fL Normal 80.0-100.0 [facility] Comment on above: Order Comment: Speci men Type: BLOOD SPECIMENOrdering Facility: [facility] Address: [address] [place] [address] Performed By: #### 5 8410-2 ####[facility]ORYCLIA [id number] [address] Nucleated RBC (Bld) [#/Vol] 10*3/uL Normal <0.01 [facility] Comment on above: Order Comment: Speci men Type: BLOOD SPECIMENOrdering Facility: [facility] Address: [address] [place] [address] Performed By: #### 5 8410-2 ####[facility]ATORYCLIA [id number] [address] [place] Platelet mean volume (Bld) [Entitic vol] 8.4 fL Low 9.0-12.7 [facility] Comment on above: Order Comment: Speci men Type: BLOOD SPECIMENOrdering Facility: [facility] Address: [address] [address] Performed By: #### 5 8410-2 ####[facility]ORATORYCLIA [id number] [place] [address] [place] Platelets (Bld) [#/Vol] 305 10*3/uL Normal 150-400 [facility] Comment on above: Order Comment: Speci men Type: BLOOD SPECIMENOrdering Facility: [facility] Address: [address] [address] Performed By: #### 5 8410-2 ####[facility]ATORYCLIA [id number] [place] [address] [place] RBC (Bld) [#/Vol] 3.15 10*6/uL Low 3.90-5.20 [facility] Comment on above: Order Comment: Speci men Type: BLOOD SPECIMENOrdering Facility: [facility] Address: [address] [place] [address] Performed By: #### 5 8410-2 ####[facility]ATORYCLIA [id number] [place] [address] [place] WBC (Bld) [#/Vol] 7.57 10*3/uL Normal 3.70-11.00 [facility] Comment on above: Order Comment: Speci men Type: BLOOD SPECIMENOrdering Facility: [facility] Address: [address] [place] [address] Performed By: #### 5 8410-2 ####[facility]ATORYCLIA [id number] [address] [place] CONSULTon 02-12-2023 CONSULT Normal [facility] Gas and Carbon monoxide pane l (BldV)on 02-12-2023 Base excess Calc (BldV) [Moles/Vol] 8 mmol/L High 0-2 [facility] Comment on above: Order Comment: Speci men Type: VENOUS BLOOD SPECIMENOrdering Facility: [facility] Address: [address] [place] [address] Performed By: #### 2 4344-4 ####[facility]ATORYCLIA [id number] [address] Body temperature 98.6 [degF] Normal [facility] Comment on above: Order Comment: Speci men Type: VENOUS BLOOD SPECIMENOrdering Facility: [facility] Address: [address] [place] [address] Performed By: #### 2 4344-4 ####[facility]ORYCLIA [id number] [address] Calcium.ionized (BldV) [Mass/Vol] 1.11 mmol/L Normal 1.08-1.30 [facility] Comment on above: Order Comment: Speci men Type: VENOUS BLOOD SPECIMENOrdering Facility: [facility] Address: [address] [place] [address] Performed By: #### 2 4344-4 ####[facility]ATORYCLIA [id number] [address] Calcium.ionized adjusted to pH 7.4 (BldA) [Moles/Vol] 1.08 mmol/L Normal 1.08-1.30 [facility] Comment on above: Order Comment: Speci men Type: VENOUS BLOOD SPECIMENOrdering Facility: [facility] Address: [address] [place] [address] Performed By: #### 2 4344-4 ####[facility]ATORYCLIA [id number] [address] [place] Carboxyhemoglobin (BldV) [Mass fraction] 2.5 % High 0.0-2.0 [facility] Comment on above: Order Comment: Speci men Type: VENOUS BLOOD SPECIMENOrdering Facility: [facility] Address: [address] [place] [address] Result Comment: Carb oxyhemoglobin Reference Range for Smokers: 2.0-8.0% Performed By: #### 2 4344-4 ####[facility] LABORATORYCLIA [id number] [place] [address] [place] Chloride [Moles/Vol] 98 mmol/L Low 102-109 [facility] Comment on above: Order Comment: Speci men Type: VENOUS BLOOD SPECIMENOrdering Facility: [facility] Address: [address] [place] [address] Performed By: #### 2 4344-4 ####[facility]ATORYCLIA [id number] [place] [address] [place] CO2 (BldV) [Partial pressure] 64 mm[Hg] High 42-55 [facility] Comment on above: Order Comment: Speci men Type: VENOUS BLOOD SPECIMENOrdering Facility: [facility] Address: [address] [address] Performed By: #### 2 4344-4 ####[facility]ATORYCLIA [id number] [address] [place] CO2 [Moles/Vol] 33 mmol/L High 25-29 [facility] Comment on above: Order Comment: Speci men Type: VENOUS BLOOD SPECIMENOrdering Facility: [facility] Address: [address] [address] Performed By: #### 2 4344-4 ####[facility]ATORYCLIA [id number] [place] [address] [place] Glucose [Mass/Vol] 178 mg/dL High 60-105 [facility] Comment on above: Order Comment: Speci men Type: VENOUS BLOOD SPECIMENOrdering Facility: [facility] Address: [address] [address] Performed By: #### 2 4344-4 ####[facility]ORATORYCLIA [id number] [place] [address] [place] HCO3 (Bld) [Moles/Vol] 35 mmol/L High 24-28 [facility] Comment on above: Order Comment: Speci men Type: VENOUS BLOOD SPECIMENOrdering Facility: [facility] Address: [address] [place] [address] Performed By: #### 2 4344-4 ####[facility]ATORYCLIA [id number] [address] [place] Hematocrit (Bld) [Volume fraction] 30.6 % Low 36.0-46.0 [facility] Comment on above: Order Comment: Speci men Type: VENOUS BLOOD SPECIMENOrdering Facility: [facility] Address: [address] [place] [address] Performed By: #### 2 4344-4 ####[facility]ATORYCLIA [id number] [address] [place] Hemoglobin (Bld) [Mass/Vol] 9.9 g/dL Low 11.5-15.5 [facility] Comment on above: Order Comment: Speci men Type: VENOUS BLOOD SPECIMENOrdering Facility: [facility] Address: [address] [place] [address] Performed By: #### 2 4344-4 ####[facility]ATORYCLIA [id number] [place] [address] [place] Lactate [Moles/Vol] 1.0 mmol/L Normal 0.5-2.2 [facility] Comment on above: Order Comment: Speci men Type: VENOUS BLOOD SPECIMENOrdering Facility: [facility] Address: [address] [place] [address] Performed By: #### 2 4344-4 ####[facility]ATORYCLIA [id number] [address] [place] Methemoglobin (Bld) [Mass fraction] 1.4 % Normal 0.0-1.5 [facility] Comment on above: Order Comment: Speci men Type: VENOUS BLOOD SPECIMENOrdering Facility: [facility] Address: [address] [place] [address] Performed By: #### 2 4344-4 ####[facility]ORATORYCLIA [id number] [address] [facility] O2 THERAPY NC = Nasal Cannula Normal [facility] Comment on above: Order Comment: Speci men Type: VENOUS BLOOD SPECIMENOrdering Facility: [facility] Address: [address] [place] [address] Result Comment: 4 L Performed By: #### 2 4344-4 ####[facility]ATORYCLIA [id number] [address] [place] Oxygen (BldV) [Partial pressure] 184 mm[Hg] High 35-45 [facility] Comment on above: Order Comment: Speci men Type: VENOUS BLOOD SPECIMENOrdering Facility: [facility] Address: [address] [place] [address] Performed By: #### 2 4344-4 ####[facility] LABORATORYCLIA [id number] [address] [place] Oxygen saturation in Venous blood 99 % High 60-85 [facility] Comment on above: Order Comment: Speci men Type: VENOUS BLOOD SPECIMENOrdering Facility: [facility] Address: [address] [place] [address] Performed By: #### 2 4344-4 ####[facility]ATORYCLIA [id number] [address] [place] Oxyhemoglobin (BldV) [Mass fraction] 95 % High 60-85 [facility] Comment on above: Order Comment: Speci men Type: VENOUS BLOOD SPECIMENOrdering Facility: [facility] Address: [address] [place] [address] Performed By: #### 2 4344-4 ####[facility]ATORYCLIA [id number] [place] [address] [place] pH (BldV) 7.35 [pH] Normal 7.32-7.42 [facility] Comment on above: Order Comment: Speci men Type: VENOUS BLOOD SPECIMENOrdering Facility: [facility] Address: [address] [place] [address] Performed By: #### 2 4344-4 ####[facility]ATORYCLIA [id number] [address] [place] Potassium [Moles/Vol] 4.5 mmol/L Normal 3.5-5.0 [facility] Comment on above: Order Comment: Speci men Type: VENOUS BLOOD SPECIMENOrdering Facility: [facility] Address: [address] [place] [address] Performed By: #### 2 4344-4 ####[facility]ATORYCLIA [id number] [address] [place] Sodium [Moles/Vol] 140 mmol/L Normal 136-144 [facility] Comment on above: Order Comment: Speci men Type: VENOUS BLOOD SPECIMENOrdering Facility: [facility] Address: [address] [place] [address] Performed By: #### 2 4344-4 ####[facility]ATORYCLIA [id number] [address] [place] Base excess Calc (BldV) [Moles/Vol] 7 mmol/L High 0-2 [facility] Comment on above: Order Comment: Speci men Type: VENOUS BLOOD SPECIMENOrdering Facility: [facility] Address: [address] [place] [address] Performed By: #### 2 4344-4 ####[facility]ORATORYCLIA [id number] [address] Body temperature 96.26 [degF] Normal [facility] Comment on above: Order Comment: Speci men Type: VENOUS BLOOD SPECIMENOrdering Facility: [facility] Address: [address] [place] [address] Performed By: #### 2 4344-4 ####[facility]ATORYCLIA [id number] [address] [place] Calcium.ionized (BldV) [Mass/Vol] 1.16 mmol/L Normal 1.08-1.30 [facility] Comment on above: Order Comment: Speci men Type: VENOUS BLOOD SPECIMENOrdering Facility: [facility] Address: [address] [place] [address] Performed By: #### 2 4344-4 ####[facility]ATORYCLIA [id number] [address] Calcium.ionized adjusted to pH 7.4 (BldA) [Moles/Vol] 1.09 mmol/L Normal 1.08-1.30 [facility] Comment on above: Order Comment: Speci men Type: VENOUS BLOOD SPECIMENOrdering Facility: [facility] Address: [address] [place] [address] Performed By: #### 2 4344-4 ####[facility]ATORYCLIA [id number] [address] Carboxyhemoglobin (BldV) [Mass fraction] 2.0 % Normal 0.0-2.0 [facility] Comment on above: Order Comment: Speci men Type: VENOUS BLOOD SPECIMENOrdering Facility: [facility] Address: [address] [place] [address] Result Comment: Carb oxyhemoglobin Reference Range for Smokers: 2.0-8.0% Performed By: #### 2 4344-4 ####[facility]ATORYCLIA [id number] [place] [address] [place] Chloride [Moles/Vol] 97 mmol/L Low 102-109 [facility] Comment on above: Order Comment: Speci men Type: VENOUS BLOOD SPECIMENOrdering Facility: [facility] Address: [address] [place] [address] Performed By: #### 2 4344-4 ####[facility] LABORATORYCLIA [id number] [address] [place] CO2 (BldV) [Partial pressure] 76 mm[Hg] High 42-55 [facility] Comment on above: Order Comment: Speci men Type: VENOUS BLOOD SPECIMENOrdering Facility: [facility] Address: [address] [address] Performed By: #### 2 4344-4 ####[facility]ORATORYCLIA [id number] [address] CO2 [Moles/Vol] 34 mmol/L High 25-29 [facility] Comment on above: Order Comment: Speci men Type: VENOUS BLOOD SPECIMENOrdering Facility: [facility] Address: [address] [place] [address] Performed By: #### 2 4344-4 ####[facility]ORATORYCLIA [id number] [address] CO2 adjusted to patient's actual temperature (BldV) [Partial pressure] 72 mmHg High 42-55 [facility] Comment on above: Order Comment: Speci men Type: VENOUS BLOOD SPECIMENOrdering Facility: [facility] Address: [address] [place] [address] Performed By: #### 2 4344-4 ####[facility]ORATORYCLIA [id number] [address] [place] Glucose [Mass/Vol] 187 mg/dL High 60-105 [facility] Comment on above: Order Comment: Speci men Type: VENOUS BLOOD SPECIMENOrdering Facility: [facility] Address: [address] [place] [address] Performed By: #### 2 4344-4 ####[facility]ORATORYCLIA [id number] [address] STATES [facility] HCO3 (Bld) [Moles/Vol] 35 mmol/L High 24-28 [facility] Comment on above: Order Comment: Speci men Type: VENOUS BLOOD SPECIMENOrdering Facility: [facility] Address: [address] [place] [address] Performed By: #### 2 4344-4 ####[facility]ORATORYCLIA [id number] [address] [place] Hematocrit (Bld) [Volume fraction] 29.0 % Low 36.0-46.0 [facility] Comment on above: Order Comment: Speci men Type: VENOUS BLOOD SPECIMENOrdering Facility: [facility] Address: [address] [address] Performed By: #### 2 4344-4 ####[facility]ATORYCLIA [id number] [address] [facility] Hemoglobin (Bld) [Mass/Vol] 9.4 g/dL Low 11.5-15.5 [facility] Comment on above: Order Comment: Speci men Type: VENOUS BLOOD SPECIMENOrdering Facility: [facility] Address: [address] [place] [address] Performed By: #### 2 4344-4 ####[facility]ATORYCLIA [id number] [address] [place] Lactate [Moles/Vol] 1.5 mmol/L Normal 0.5-2.2 [facility] Comment on above: Order Comment: Speci men Type: VENOUS BLOOD SPECIMENOrdering Facility: [facility] Address: [address] [address] Performed By: #### 2 4344-4 ####[facility]ATORYCLIA [id number] [address] Methemoglobin (Bld) [Mass fraction] 1.3 % Normal 0.0-1.5 [facility] Comment on above: Order Comment: Speci men Type: VENOUS BLOOD SPECIMENOrdering Facility: [facility] Address: [address] [address] Performed By: #### 2 4344-4 ####[facility]ATORYCLIA [id number] [address] O2 THERAPY NC = Nasal Cannula Normal [facility] Comment on above: Order Comment: Speci men Type: VENOUS BLOOD SPECIMENOrdering Facility: [facility] Address: [address] [address] Performed By: #### 2 4344-4 ####[facility]ORATORYCLIA [id number] [address] [place] Oxygen (BldV) [Partial pressure] 163 mm[Hg] High 35-45 [facility] Comment on above: Order Comment: Speci men Type: VENOUS BLOOD SPECIMENOrdering Facility: [facility] Address: [address] [place] [address] Performed By: #### 2 4344-4 ####[facility]ATORYCLIA [id number] [address] [place] Oxygen adjusted to patient's actual temperature (BldV) [Partial pressure] 157 mmHg High 35-45 [facility] Comment on above: Order Comment: Speci men Type: VENOUS BLOOD SPECIMENOrdering Facility: [facility] Address: [address] [place] [address] Performed By: #### 2 4344-4 ####[facility]ATORYCLIA [id number] [address] [place] Oxygen saturation in Venous blood 99 % High 60-85 [facility] Comment on above: Order Comment: Speci men Type: VENOUS BLOOD SPECIMENOrdering Facility: [facility] Address: [address] [place] [address] Performed By: #### 2 4344-4 ####[facility]ATORYCLIA [id number] [address] [place] Oxyhemoglobin (BldV) [Mass fraction] 96 % High 60-85 [facility] Comment on above: Order Comment: Speci men Type: VENOUS BLOOD SPECIMENOrdering Facility: [facility] Address: [address] [place] [address] Performed By: #### 2 4344-4 ####[facility]ORATORYCLIA [id number] [address] [place] pH (BldV) 7.28 [pH] Low 7.32-7.42 [facility] Comment on above: Order Comment: Speci men Type: VENOUS BLOOD SPECIMENOrdering Facility: [facility] Address: [address] [place] [address] Performed By: #### 2 4344-4 ####[facility]ORATORYCLIA [id number] [address] STATES OF [facility] pH adjusted to patient's actual temperature (BldV) 7.30 Low 7.32-7.42 [facility] Comment on above: Order Comment: Speci men Type: VENOUS BLOOD SPECIMENOrdering Facility: [facility] Address: [address] [place] [address] Performed By: #### 2 4344-4 ####[facility]ATORYCLIA [id number] [address] [place] Potassium [Moles/Vol] 4.1 mmol/L Normal 3.5-5.0 [facility] Comment on above: Order Comment: Speci men Type: VENOUS BLOOD SPECIMENOrdering Facility: [facility] Address: [address] [place] [address] Performed By: #### 2 4344-4 ####[facility]ATORYCLIA [id number] [address] [place] Sodium [Moles/Vol] 140 mmol/L Normal 136-144 [facility] Comment on above: Order Comment: Speci men Type: VENOUS BLOOD SPECIMENOrdering Facility: [facility] Address: [address] [place] [address] Performed By: #### 2 4344-4 ####[facility]ATORYCLIA [id number] [place] [address] [place] NURSING PROGon 02-12-2023 NURSING PROG Normal [facility] Renal function 2000 panelon 02-12-2023 Albumin [Mass/Vol] 3.3 g/dL Low 3.9-4.9 [facility] Comment on above: Order Comment: Speci men Type: BLOOD SPECIMENOrdering Facility: [facility] Address: [address] [place] [address] Performed By: #### 2 4362-6 ####[facility]ORATORYCLIA [id number] [place] [address] [place] Anion gap [Moles/Vol] 8 mmol/L Low 9-18 [facility] Comment on above: Order Comment: Speci men Type: BLOOD SPECIMENOrdering Facility: [facility] Address: [address] [place] [address] Performed By: #### 2 4362-6 ####[facility] LABORATORYCLIA [id number] [place] [address] [place] Calcium [Mass/Vol] 8.7 mg/dL Normal 8.5-10.2 [facility] Comment on above: Order Comment: Speci men Type: BLOOD SPECIMENOrdering Facility: [facility] Address: [address] [place] [address] Performed By: #### 2 4362-6 ####[facility]ORATORYCLIA [id number] [place] [address] [place] Chloride [Moles/Vol] 97 mmol/L Normal 97-105 [facility] Comment on above: Order Comment: Speci men Type: BLOOD SPECIMENOrdering Facility: [facility] Address: [address] [place] [address] Performed By: #### 2 4362-6 ####[facility]ORATORYCLIA [id number] [place] [address] [place] CO2 [Moles/Vol] 35 mmol/L High 22-30 [facility] Comment on above: Order Comment: Speci men Type: BLOOD SPECIMENOrdering Facility: [facility] Address: [address] [place] [address] Performed By: #### 2 4362-6 ####[facility]ORATORYCLIA [id number] [place] [address] [place] Creatinine [Mass/Vol] 1.54 mg/dL High 0.58-0.96 [facility] Comment on above: Order Comment: Speci men Type: BLOOD SPECIMENOrdering Facility: [facility] Address: [address] [place] [address] Performed By: #### 2 4362-6 ####[facility]ORATORYCLIA [id number] [address] [id number] [place] ESTIMATED GLOMERULAR FILTRATION RATE 37 mL/min/1.73m??? Low >=60 [facility] Comment on above: Order Comment: Scott seals Type: BLOOD SPECIMENOrdering Facility: [facility] Address: [address] [place] [address] Result Comment: Petra mated Glomerular Filtration Rate [...] actual GFR. Performed By: #### 2 4362-6 ####[facility]ORATORYCLIA [id number] [place] [address] [place] Glucose [Mass/Vol] 235 mg/dL High 74-99 [facility] Comment on above: Order Comment: Scott seals Type: BLOOD SPECIMENOrdering Facility: [facility] Address: [address] [place] [address] Result Comment: The [place] [employer] (ADA) provides guidance for cutoff [...] Standards of Medical Care in Diabetes 2016, [place] [employer]. Diabetes Care. 2016.39(Suppl 1). Performed By: #### 2 4362-6 ####[facility]ATORYCLIA [id number] [address] [place] [id number] [place] Phosphate [Mass/Vol] 3.6 mg/dL Normal 2.7-4.8 [facility] Comment on above: Order Comment: Speci men Type: BLOOD SPECIMENOrdering Facility: [facility] Address: [address] [address] Performed By: #### 2 4362-6 ####[facility]ORATORYCLIA [id number] [address] [place] Potassium [Moles/Vol] 4.5 mmol/L Normal 3.7-5.1 [facility] Comment on above: Order Comment: Speci men Type: BLOOD SPECIMENOrdering Facility: [facility] Address: [address] [place] [address] Performed By: #### 2 4362-6 ####[facility]ORATORYCLIA [id number] [address] [place] Sodium [Moles/Vol] 140 mmol/L Normal 136-144 [facility] Comment on above: Order Comment: Speci men Type: BLOOD SPECIMENOrdering Facility: [facility] Address: [address] [place] [address] Performed By: #### 2 4362-6 ####[facility]ORATORYCLIA [id number] [address] [place] Urea nitrogen [Mass/Vol] 26 mg/dL High 7-21 [facility] Comment on above: Order Comment: Speci men Type: BLOOD SPECIMENOrdering Facility: [facility] Address: [address] [place] [address] Performed By: #### 2 4362-6 ####[facility]ORATORYCLIA [id number] [address] [place] THERAPY NTon 02-12-2023 THERAPY NT Normal [facility] THERAPY NT Normal [facility] XR CHEST 1V FRONTALon 2022 XR CHEST 1V FRONTAL Normal [facility] ALLIED HEALTHon 02-11-2023 ALLIED HEALTH Normal [facility] ALLIED HEALTH Normal [facility] CBC W Auto Differential pane l (Bld)on 02-11-2023 Basophils (Bld) [#/Vol] 0.05 10*3/uL Normal <0.11 [facility] Comment on above: Order Comment: Speci men Type: BLOOD SPECIMENOrdering Facility: [facility] Address: [address] [place] [address] Result Comment: Diff erential confirmed by visual scan of peripheral blood smear slide. Performed By: #### 5 7021-8 ####[facility] LABORATORYCLIA [id number] [address] Basophils/100 WBC (Bld) 0.6 % Normal A [facility] Comment on above: Order Comment: Speci men Type: BLOOD SPECIMENOrdering Facility: [facility] Address: [address] [place] [address] Performed By: #### 5 7021-8 ####[facility]ORATORYCLIA [id number] [address] Differential cell count method Nom (Bld) Auto Normal [facility] Comment on above: Order Comment: Speci men Type: BLOOD SPECIMENOrdering Facility: [facility] Address: [address] [place] [address] Performed By: #### 5 7021-8 ####[facility]ORATORYCLIA [id number] [address] Eosinophils (Bld) [#/Vol] 0.62 10*3/uL High <0.46 [facility] Comment on above: Order Comment: Speci men Type: BLOOD SPECIMENOrdering Facility: [facility] Address: [address] [place] [address] Performed By: #### 5 7021-8 ####[facility]ORATORYCLIA [id number] [address] Eosinophils/100 WBC (Bld) 7.8 % Normal [facility] Comment on above: Order Comment: Speci men Type: BLOOD SPECIMENOrdering Facility: [facility] Address: [address] [place] [address] Performed By: #### 5 7021-8 ####[facility]ORATORYCLIA [id number] [address] [place] Erythrocyte distribution width (RBC) [Ratio] 15.9 % High 11.5-15.0 [facility] Comment on above: Order Comment: Speci men Type: BLOOD SPECIMENOrdering Facility: [facility] Address: [address] [place] [address] Performed By: #### 5 7021-8 ####[facility]ORATORYCLIA [id number] [address] [place] Hematocrit (Bld) [Volume fraction] 29.6 % Low 36.0-46.0 [facility] Comment on above: Order Comment: Speci men Type: BLOOD SPECIMENOrdering Facility: [facility] Address: [address] [place] [address] Performed By: #### 5 7021-8 ####[facility]ORATORYCLIA [id number] [address] [place] Hemoglobin (Bld) [Mass/Vol] 8.4 g/dL Low 11.5-15.5 [facility] Comment on above: Order Comment: Speci men Type: BLOOD SPECIMENOrdering Facility: [facility] Address: [address] [place] [address] Performed By: #### 5 7021-8 ####[facility]ORATORYCLIA [id number] [address] [place] Immature granulocytes (Bld) [#/Vol] 0.21 10*3/uL High <0.10 [facility] Comment on above: Order Comment: Speci men Type: BLOOD SPECIMENOrdering Facility: [facility] Address: [address] [place] [address] Performed By: #### 5 7021-8 ####[facility]ATORYCLIA [id number] [address] Immature granulocytes/100 WBC (Bld) 2.6 % Normal [facility] Comment on above: Order Comment: Speci men Type: BLOOD SPECIMENOrdering Facility: [facility] Address: [address] [place] [address] Performed By: #### 5 7021-8 ####[facility]ORATORYCLIA [id number] [address] Lymphocytes (Bld) [#/Vol] 1.30 10*3/uL Normal 1.00-4.00 [facility] Comment on above: Order Comment: Speci men Type: BLOOD SPECIMENOrdering Facility: [facility] Address: [address] [place] [address] Performed By: #### 5 7021-8 ####[facility]ATORYCLIA [id number] [address] Lymphocytes/100 WBC (Bld) 16.3 % Normal [facility] Comment on above: Order Comment: Speci men Type: BLOOD SPECIMENOrdering Facility: [facility] Address: [address] [place] [address] Performed By: #### 5 7021-8 ####[facility]ORATORYCLIA [id number] [address] MCH (RBC) [Entitic mass] 27.7 pg Normal 26.0-34.0 [facility] Comment on above: Order Comment: Speci men Type: BLOOD SPECIMENOrdering Facility: [facility] Address: [address] [place] [address] Performed By: #### 5 7021-8 ####[facility]ORATORYCLIA [id number] [address] MCHC (RBC) [Mass/Vol] 28.4 g/dL Low 30.5-36.0 [facility] Comment on above: Order Comment: Speci men Type: BLOOD SPECIMENOrdering Facility: [facility] Address: [address] [place] [address] Performed By: #### 5 7021-8 ####[facility]ATORYCLIA [id number] [address] MCV (RBC) [Entitic vol] 97.7 fL Normal 80.0-100.0 A [facility] Comment on above: Order Comment: Speci men Type: BLOOD SPECIMENOrdering Facility: [facility] Address: [address] [address] Performed By: #### 5 7021-8 ####[facility] LABORATORYCLIA [id number] [address] [place] Monocytes (Bld) [#/Vol] 0.78 10*3/uL Normal <0.87 [facility] Comment on above: Order Comment: Speci men Type: BLOOD SPECIMENOrdering Facility: [facility] Address: [address] [address] Performed By: #### 5 7021-8 ####[facility] LABORATORYCLIA [id number] [address] Monocytes/100 WBC (Bld) 9.8 % Normal A [facility] Comment on above: Order Comment: Speci men Type: BLOOD SPECIMENOrdering Facility: [facility] Address: [address] [address] Performed By: #### 5 7021-8 ####[facility]ATORYCLIA [id number] [address] [place] Neutrophils (Bld) [#/Vol] 5.02 10*3/uL Normal 1.45-7.50 [facility] Comment on above: Order Comment: Speci men Type: BLOOD SPECIMENOrdering Facility: [facility] Address: [address] [place] [address] Performed By: #### 5 7021-8 ####[facility]ORATORYCLIA [id number] [address] [place] Neutrophils/100 WBC (Bld) 62.9 % Normal [facility] Comment on above: Order Comment: Speci men Type: BLOOD SPECIMENOrdering Facility: [facility] Address: [address] [place] [address] Performed By: #### 5 7021-8 ####[facility] LABORATORYCLIA [id number] [place] [address] [place] Nucleated RBC (Bld) [#/Vol] 10*3/uL Normal <0.01 [facility] Comment on above: Order Comment: Speci men Type: BLOOD SPECIMENOrdering Facility: [facility] Address: [address] [address] Performed By: #### 5 7021-8 ####[facility]ORATORYCLIA [id number] [address] [place] Nucleated RBC/100 WBC (Bld) [Ratio] 0.0 /100 WBC Normal [facility] Comment on above: Order Comment: Speci men Type: BLOOD SPECIMENOrdering Facility: [facility] Address: [address] [address] Performed By: #### 5 7021-8 ####[facility]ORATORYCLIA [id number] [place] [address] [place] Platelet mean volume (Bld) [Entitic vol] 8.7 fL Low 9.0-12.7 [facility] Comment on above: Order Comment: Speci men Type: BLOOD SPECIMENOrdering Facility: [facility] Address: [address] [address] Performed By: #### 5 7021-8 ####[facility]ORATORYCLIA [id number] [address] [place] Platelets (Bld) [#/Vol] 304 10*3/uL Normal 150-400 [facility] Comment on above: Order Comment: Speci men Type: BLOOD SPECIMENOrdering Facility: [facility] Address: [address] [address] Performed By: #### 5 7021-8 ####[facility]ORATORYCLIA [id number] [place] [address] [place] RBC (Bld) [#/Vol] 3.03 10*6/uL Low 3.90-5.20 [facility] Comment on above: Order Comment: Speci men Type: BLOOD SPECIMENOrdering Facility: [facility] Address: [address] [place] [address] Performed By: #### 5 7021-8 ####[facility]ORATORYCLIA [id number] [place] [address] [place] WBC (Bld) [#/Vol] 7.98 10*3/uL Normal 3.70-11.00 [facility] Comment on above: Order Comment: Speci men Type: BLOOD SPECIMENOrdering Facility: [facility] Address: [address] [address] Performed By: #### 5 7021-8 ####[facility]ORATORYCLIA [id number] [place] [address] [place] [address] BRAIN WO IVCONon 02-12-20 CT BRAIN WO IVCON Normal [facility] Comprehensive metabolic 2000 panelon 02-11-2023 Albumin [Mass/Vol] 3.1 g/dL Low 3.9-4.9 [facility] Comment on above: Order Comment: Speci men Type: BLOOD SPECIMENOrdering Facility: [facility] Address: [address] [place] [address] Performed By: #### 2 4323-8, 3040-3 ####[facility]ORATORYCLIA [id number] [address] [place] ALP [Catalytic activity/Vol] 59 U/L Normal 34-123 [facility] Comment on above: Order Comment: Speci men Type: BLOOD SPECIMENOrdering Facility: [facility] Address: [address] [place] [address] Performed By: #### 2 4323-8, 3040-3 ####[facility]ATORYCLIA [id number] [address] [place] ALT With P-5'-P [Catalytic activity/Vol] 8 U/L Normal 7-38 [facility] Comment on above: Order Comment: Speci men Type: BLOOD SPECIMENOrdering Facility: [facility] Address: [address] [address] Performed By: #### 2 4323-8, 3040-3 ####[facility]ATORYCLIA [id number] [address] [place] Anion gap [Moles/Vol] 10 mmol/L Normal 9-18 [facility] Comment on above: Order Comment: Speci men Type: BLOOD SPECIMENOrdering Facility: [facility] Address: [address] [place] [address] Performed By: #### 2 4323-8, 3040-3 ####[facility]ATORYCLIA [id number] [place] [address] [place] AST With P-5'-P [Catalytic activity/Vol] 14 U/L Normal 13-35 [facility] Comment on above: Order Comment: Speci men Type: BLOOD SPECIMENOrdering Facility: [facility] Address: [address] [place] [address] Performed By: #### 2 4323-8, 0-3 ####[facility]ATORYCLIA [id number] [place] [address] [place] Bilirubin [Mass/Vol] 0.2 mg/dL Normal 0.2-1.3 [facility] Comment on above: Order Comment: Speci men Type: BLOOD SPECIMENOrdering Facility: [facility] Address: [address] [place] [address] Performed By: #### 2 4323-8, 0-3 ####[facility]ORATORYCLIA [id number] [address] [place] Calcium [Mass/Vol] 8.3 mg/dL Low 8.5-10.2 [facility] Comment on above: Order Comment: Speci men Type: BLOOD SPECIMENOrdering Facility: [facility] Address: [address] [place] [address] Performed By: #### 2 4323-8, 0-3 ####[facility]ORATORYCLIA [id number] [address] [place] Chloride [Moles/Vol] 97 mmol/L Normal 97-105 [facility] Comment on above: Order Comment: Speci men Type: BLOOD SPECIMENOrdering Facility: [facility] Address: [address] [address] Performed By: #### 2 4323-8, 0-3 ####[facility]ATORYCLIA [id number] [place] [address] [place] CO2 [Moles/Vol] 33 mmol/L High 22-30 [facility] Comment on above: Order Comment: Speci men Type: BLOOD SPECIMENOrdering Facility: [facility] Address: [address] [place] [address] Performed By: #### 2 4323-8, 3039-3 ####[facility]ATORYCLIA [id number] [place] [address] [place] Creatinine [Mass/Vol] 1.51 mg/dL High 0.58-0.96 [facility] Comment on above: Order Comment: Speci men Type: BLOOD SPECIMENOrdering Facility: [facility] Address: [address] [place] [address] Performed By: #### 2 4323-8, 3039-3 ####[facility]ORATORYCLIA [id number] [address] [place] ESTIMATED GLOMERULAR FILTRATION RATE 38 mL/min/1.73m??? Low >=60 [facility] Comment on above: Order Comment: Speci men Type: BLOOD SPECIMENOrdering Facility: [facility] Address: [address] [place] [address] Result Comment: Petra mated Glomerular Filtration Rate [...] actual GFR. Performed By: #### 2 4323-8, 3039-3 ####[facility]ATORYCLIA [id number] [address] [place] Glucose [Mass/Vol] 206 mg/dL High 74-99 [facility] Comment on above: Order Comment: Speci men Type: BLOOD SPECIMENOrdering Facility: [facility] Address: [address] [place] [address] Result Comment: The [place] [employer] Association (ADA) provides guidance for cutoff [...] Standards of Medical Care in Diabetes 2016, [place] [employer]. Diabetes Care. 2016.39(Suppl 1). Performed By: #### 2 4323-8, 0-3 ####[facility]ATORYCLIA [id number] [place] [address] [place] Potassium [Moles/Vol] 4.1 mmol/L Normal 3.7-5.1 [facility] Comment on above: Order Comment: Speci men Type: BLOOD SPECIMENOrdering Facility: [facility] Address: [address] [place] [address] Performed By: #### 2 4323-8, 0-3 ####[facility]ATORYCLIA [id number] [place] [address] [place] Protein [Mass/Vol] 5.3 g/dL Low 6.3-8.0 [facility] Comment on above: Order Comment: Speci men Type: BLOOD SPECIMENOrdering Facility: [facility] Address: [address] [place] [address] Performed By: #### 2 4323-8, 0-3 ####[facility]ATORYCLIA [id number] [place] [address] [place] Sodium [Moles/Vol] 140 mmol/L Normal 136-144 [facility] Comment on above: Order Comment: Speci men Type: BLOOD SPECIMENOrdering Facility: [facility] Address: [place] [address] Performed By: #### 2 4323-8, 3040-3 ####[facility]ATORYCLIA [id number] [address] STATES [facility] Urea nitrogen [Mass/Vol] 28 mg/dL High 7-21 [facility] Comment on above: Order Comment: Speci men Type: BLOOD SPECIMENOrdering Facility: [facility] Address: [place] [address] Performed By: #### 2 4323-8, 3040-3 ####[facility]ORATORYCLIA [id number] [place] [id number] [facility] ECG COMPLETEon 02-11-2023 ECG COMPLETE Normal [facility] ED NOTEon 02-11-2023 ED NOTE Normal [facility] ED NOTE HNO ID: [id number] Author: Kevin Farah RN Service: Emergency Medicine Author Type: Registered Nurse Type: ED Notes Filed: 02/11/2023 5:17 PM Note Text: External urine collection placed Normal [facility] ED NOTE HNO ID: [id number] Author: Kevin Farah RN Service: Emergency Medicine Author Type: Registered Nurse Type: ED Notes Filed: 02/11/2023 1:42 PM Note Text: Patient arrives via ems from f with c/o hallucinations. No distress noted. Normal [facility] ED NOTE Normal [facility] ED PROV NOTEon 02-11-2023 ED PROV NOTE Normal [facility] HIGH SENSITIVITY TROPONIN T (INITIAL)on 02-11-2023 HIGH SENSITIVITY MARIE 95 ng/L High <12 [facility] Comment on above: Order Comment: Speci men Type: BLOOD SPECIMENOrdering Facility: [facility] Address: [address] [place] [phone] Result Comment: When assessing risk for acute [...] 30 day MACE. Performed By: #### L [id number] ####[facility]ATORYCLIA [id number] [address] HIGH SENSITIVITY TROPONIN T (SECOND)on 02-11-2023 HIGH SENSITIVITY MARIE 84 ng/L High <12 [facility] Comment on above: Order Comment: Scott seals Type: BLOOD SPECIMENOrdering Facility: [facility] Address: [address] [place] [address] Result Comment: When assessing risk for acute [...] 30 day MACE. Performed By: #### L [id number] ####[facility]ATORYCLIA [id number] [address] HIGH SENSITIVITY TROPONIN T (THIRD) 3 HRS AFTER INITIALon 02-11-2023 HIGH SENSITIVITY MARIE 77 ng/L High <12 [facility] Comment on above: Order Comment: Scott seals Type: BLOOD SPECIMENOrdering Facility: [facility] Address: [address] [place] [address] Result Comment: When assessing risk for acute [...] 30 day MACE. Performed By: #### L [id number] ####[facility]ATORYCLIA [id number] [address] HISTORY PHYSICALon 3 HISTORY PHYSICAL Normal [facility] Lipase SerPl-cCncon 02-12-20 23 Lipase [Catalytic activity/Vol] 25 U/L Normal 16- [facility] Comment on above: Order Comment: Scott seals Type: BLOOD SPECIMENOrdering Facility: [facility] Address: [address] [address] Performed By: #### 2 4323-8, 3040-3 ####[facility]ATORYCLIA [id number] [address] SARS-CoV-2 RNA Resp Ql IGGY+p robeon 02-11-2023 SARS-CoV-2 (COVID-19) RNA IGGY+probe Ql (Resp) COVID 19 RESULT: Not detected The method used is RT-PCR or an equivalent NAAT method. Reference Range(the expected result in uninfected individuals): Not detected Normal [facility] Comment on above: Performed By: #### 9 4500-6 ####[facility] CENTERCLIA [id number] [address] Urinalysis complete panel (U )on 02-11-2023 Bilirubin Ql (U) Negative Normal Negative [facility] Comment on above: Order Comment: Speci men Type: URINE SPECIMENOrdering Facility: [facility] Address: [address] [place] [address] Performed By: #### 2 4356-8 ####[facility] HOSPITALIA [id number] [address] Clarity (Unsp spec) Clear Normal Clear [facility] Comment on above: Order Comment: Speci men Type: URINE SPECIMENOrdering Facility: [facility] Address: [address] [place] [address] Performed By: #### 2 4356-8 ####[facility]ATORYCLIA [id number] [address] Color (U) Light Yellow Normal yellow [facility] Comment on above: Order Comment: Speci men Type: URINE SPECIMENOrdering Facility: [facility] Address: [address] [place] [address] Performed By: #### 2 4356-8 ####[facility]ATORYCLIA [id number] [address] Epithelial cells LM.HPF (Urine sed) [#/Area] Few Normal [facility] Comment on above: Order Comment: Speci men Type: URINE SPECIMENOrdering Facility: [facility] Address: [address] [place] [address] Performed By: #### 2 4356-8 ####[facility]ORATORYCLIA [id number] [address] STATES [place] [facility] Glucose Test strip (U) [Mass/Vol] Negative Normal Trace, Negative [facility] Comment on above: Order Comment: Speci men Type: URINE SPECIMENOrdering Facility: [facility] Address: [address] [place] [address] Performed By: #### 2 4356-8 ####[facility]ATORYCLIA [id number] [address] STATES [facility] Hemoglobin Ql (U) Negative Normal Negative, Trace [facility] Comment on above: Order Comment: Speci men Type: URINE SPECIMENOrdering Facility: [facility] Address: [address] [place] [address] Performed By: #### 2 4356-8 ####[facility]ATORYCLIA [id number] [address] Hyaline casts (Urine sed) [#/Area] 1-3 /LPF Abnormal 0 /LPF [facility] Comment on above: Order Comment: Speci men Type: URINE SPECIMENOrdering Facility: [facility] Address: [address] [place] [address] Performed By: #### 2 4356-8 ####[facility]ORATORYCLIA [id number] [address] [place] Ketones Ql (U) Negative Normal Negative, Trace [facility] Comment on above: Order Comment: Speci men Type: URINE SPECIMENOrdering Facility: [facility] Address: [address] [place] [address] Performed By: #### 2 4356-8 ####[facility] LABORATORYCLIA [id number] [address] Leukocyte esterase Test strip Ql (U) 250 Ha/uL Abnormal Negative, 25 Ha/uL [facility] Comment on above: Order Comment: Speci men Type: URINE SPECIMENOrdering Facility: [facility] Address: [address] [place] [address] Performed By: #### 2 4356-8 ####[facility]ATORYCLIA [id number] [place] [address] [place] Nitrite Ql (U) Negative Normal Negative [facility] Comment on above: Order Comment: Speci men Type: URINE SPECIMENOrdering Facility: [facility] Address: [address] [place] [address] Performed By: #### 2 4356-8 ####[facility]ATORYCLIA [id number] [address] [place] pH (U) 6.0 [pH] Normal 5.0-8.0 [facility] Comment on above: Order Comment: Speci men Type: URINE SPECIMENOrdering Facility: [facility] Address: [address] [place] [address] Performed By: #### 2 4356-8 ####[facility]ATORYCLIA [id number] [address] STATES [facility] Protein (U) [Mass/Vol] Negative Normal Trace , Negative [facility] Comment on above: Order Comment: Speci men Type: URINE SPECIMENOrdering Facility: [facility] Address: [address] [place] [address] Performed By: #### 2 4356-8 ####[facility]ATORYCLIA [id number] [address] [place] RBC LM.HPF (Urine sed) [#/Area] 0-3 /HPF Normal 0-3 /HPF [facility] Comment on above: Order Comment: Speci men Type: URINE SPECIMENOrdering Facility: [facility] Address: [address] [place] [address] Performed By: #### 2 4356-8 ####[facility]ATORYCLIA [id number] [address] Specific gravity (U) [Rel density] 1.012 Normal 1.005-1.030 [facility] Comment on above: Order Comment: Speci men Type: URINE SPECIMENOrdering Facility: [facility] Address: [address] [place] [address] Performed By: #### 2 4356-8 ####[facility]ATORYCLIA [id number] [address] [place] Urobilinogen Ql (U) Normal Normal Negative [facility] Comment on above: Order Comment: Speci men Type: URINE SPECIMENOrdering Facility: [facility] Address: [address] [place] [address] Performed By: #### 2 4356-8 ####[facility]ATORYCLIA [id number] [address] [place] WBC LM.HPF (Urine sed) [#/Area] 0-5 /HPF Normal 0-5 /HPF [facility] Comment on above: Order Comment: Speci men Type: URINE SPECIMENOrdering Facility: [facility] Address: [address] [place] [address] Performed By: #### 2 4356-8 ####[facility]ATORYCLIA [id number] [address] [place] XR CHEST 1V FRONTALon 2022 XR CHEST 1V FRONTAL Normal [facility] CNPTOUTREACHon 02-06-2023 CNPTOUTREACH Normal [facility] Basophil percentageOrdered B y: Lucy Sarisherri on 02-02-2023 Chloride [Moles/Vol] 106 mmol/L 98-107 [facility] Glucose [Mass/Vol] 196 mg/dL 74-106 [facility] Comment on above: Fasting Glucose resu lt greater than or equal to 126 mg/dL suggests DIABETES MELLITUS per A.D.A. criteria. Potassium [Moles/Vol] 4.6 mmol/L 3.5-5.1 [facility] Sodium [Moles/Vol] 139 mmol/L 136-145 [facility] WBC (Bld) [#/Vol] 7.4 10*3/uL 4.4-11.0 [facility] Blood erythrocytes count (nu mber/volume)Ordered By: Lucy Quick on 02-02-2023 RBC (Bld) [#/Vol] 2.80 10*6/uL 4.2-5.4 [facility] Blood hemoglobin measurement (mass/volume)Ordered By: Lucy Quick on 02-02-2023 Hemoglobin (Bld) [Mass/Vol] 10.2 g/dL 12.0-15.0 [facility] Blood platelet mean volumeOr dered By: Lucy Quick on 02-02-2023 Platelet mean volume (Bld) [Entitic vol] 11.3 fL 6.2-12.0 [facility] Determination of erythrocyte mean corpuscular volume (MCV)Ordered By: Lucy Quick on 02-02-2023 MCV (RBC) [Entitic vol] 97.5 fL 81-99 [facility] Hematocrit Auto (Bld) [Volum e fraction]Ordered By: Lucy Quick on 02-02-2023 Hematocrit (Bld) [Volume fraction] 27.3 % 37-47 [facility] Laboratory - Chemistry and C hemistry - challengeOrdered By: Lucy Quick on 02-02-2023 CO2 [Moles/Vol] 28.0 mmol/L 21.0-32.0 [facility] Urea nitrogen/Creatinine [Mass ratio] 27.7 mg/mg 10-20 [facility] Laboratory - Hematology and Cell countsOrdered By: Lucy Quick on 02-02-2023 Erythrocyte distribution width (RBC) [Entitic vol] 53.1 fL 35.1-43.9 [facility] Erythrocyte distribution width (RBC) [Ratio] 16.4 % 11.6-14.6 [facility] MCH (RBC) [Entitic mass] 36.4 pg 27.0-32.0 [facility] MCHC Auto (RBC) [Mass/Vol]Or dered By: Lucy Quick on 02-02-2023 MCHC (RBC) [Mass/Vol] 37.4 g/dL 32-36 [facility] No Panel InformationOrdered By: Lucy Quick on 02-02-2023 Estimated GFR (MDRD) Amer 59 mL/min >60 [facility] Comment on above: GFR Calc Estimated GFR (MDRD) Non-Af Amer 48 mL/min >60 [facility] Comment on above: Non- GFR Calc Platelets bldOrdered By: Josee Quick on 02-02-2023 Platelets (Bld) [#/Vol] 165 10*3/uL 150-450 [facility] Serum or plasma calcium catracho urement (mass/volume)Ordered By: Lucy Quick on 02-02-2023 Calcium [Mass/Vol] 8.6 mg/dL 8.5-10.1 [facility] Serum or plasma creatinine m easurement (mass/volume)Ordered By: Lucy Quick on 02-02-2023 Creatinine [Mass/Vol] 1.19 mg/dL 0.55-1.02 [facility] Comment on above: The validity of the calculated GFR & GFRAA in patients over 70 years has not been determined. Clinical correlation is essential. Serum or plasma urea nitroge n measurement (mass/volume)Ordered By: Lucy Quick on 02-02-2023 Urea nitrogen [Mass/Vol] 33 mg/dL 7-18 [facility] Thin prep Papanicolaou smear with manual screeningOrdered By: Lucy Quick on 02-02-2023 Thin prep Papanicolaou smear with manual screening 5 5-15 [facility] CNPTOUTREACHon 01-29-2023 CNPTOUTREACH Normal [facility] ALLIED HEALTHon 01-28-2023 ALLIED HEALTH Normal [facility] CASE MANAGEMon 01-28-2023 CASE MANAGEM Normal [facility] CBC panel Auto (Bld)on 01-28 Erythrocyte distribution width (RBC) [Ratio] 16.4 % High 11.5-15.0 [facility] Comment on above: Order Comment: Speci men Type: BLOOD SPECIMENOrdering Facility: [facility] Address: [address] [place] [address] Performed By: #### 5 8410-2 ####[facility]ORATORYCLIA [id number] [place] [address] [place] Hematocrit (Bld) [Volume fraction] 29.2 % Low 36.0-46.0 [facility] Comment on above: Order Comment: Speci men Type: BLOOD SPECIMENOrdering Facility: [facility] Address: [address] [place] [address] Performed By: #### 5 8410-2 ####[facility]ORATORYCLIA [id number] [address] STATES OF [facility] Hemoglobin (Bld) [Mass/Vol] 8.6 g/dL Low 11.5-15.5 [facility] Comment on above: Order Comment: Speci men Type: BLOOD SPECIMENOrdering Facility: [facility] Address: [address] [place] [address] Performed By: #### 5 8410-2 ####[facility]ATORYCLIA [id number] [address] [place] MCH (RBC) [Entitic mass] 28.0 pg Normal 26.0-34.0 [facility] Comment on above: Order Comment: Speci men Type: BLOOD SPECIMENOrdering Facility: [facility] Address: [address] [place] [address] Performed By: #### 5 8410-2 ####[facility]ATORYCLIA [id number] [address] [place] MCHC (RBC) [Mass/Vol] 29.5 g/dL Low 30.5-36.0 [facility] Comment on above: Order Comment: Speci men Type: BLOOD SPECIMENOrdering Facility: [facility] Address: [address] [place] [address] Performed By: #### 5 8410-2 ####[facility]ATORYCLIA [id number] [address] [place] MCV (RBC) [Entitic vol] 95.1 fL Normal 80.0-100.0 [facility] Comment on above: Order Comment: Speci men Type: BLOOD SPECIMENOrdering Facility: [facility] Address: [address] [place] [address] Performed By: #### 5 8410-2 ####[facility]ATORYCLIA [id number] [place] [address] [place] Nucleated RBC (Bld) [#/Vol] 0.02 10*3/uL High <0.01 [facility] Comment on above: Order Comment: Speci men Type: BLOOD SPECIMENOrdering Facility: [facility] Address: [address] [place] [address] Performed By: #### 5 8410-2 ####[facility]ATORYCLIA [id number] [address] [place] Platelet mean volume (Bld) [Entitic vol] 8.3 fL Low 9.0-12.7 [facility] Comment on above: Order Comment: Speci men Type: BLOOD SPECIMENOrdering Facility: [facility] Address: [address] [place] [address] Performed By: #### 5 8410-2 ####[facility]ATORYCLIA [id number] [address] [place] Platelets (Bld) [#/Vol] 340 10*3/uL Normal 150-400 [facility] Comment on above: Order Comment: Speci men Type: BLOOD SPECIMENOrdering Facility: [facility] Address: [address] [place] [address] Performed By: #### 5 8410-2 ####[facility]ATORYCLIA [id number] [place] [address] [place] RBC (Bld) [#/Vol] 3.07 10*6/uL Low 3.90-5.20 [facility] Comment on above: Order Comment: Speci men Type: BLOOD SPECIMENOrdering Facility: [facility] Address: [address] [place] [address] Performed By: #### 5 8410-2 ####[facility]ATORYCLIA [id number] [place] [address] [place] WBC (Bld) [#/Vol] 7.88 10*3/uL Normal 3.70-11.00 [facility] Comment on above: Order Comment: Speci men Type: BLOOD SPECIMENOrdering Facility: [facility] Address: [address] [place] [address] Performed By: #### 5 8410-2 ####[facility]ATORYCLIA [id number] [address] OF [facility] Comprehensive metabolic 2000 panelon 01-28-2023 Albumin [Mass/Vol] 3.1 g/dL Low 3.9-4.9 [facility] Comment on above: Order Comment: Speci men Type: BLOOD SPECIMENOrdering Facility: [facility] Address: [address] [place] [address] Performed By: #### 2 4323-8 ####[facility]ATORYCLIA [id number] [address] [place] ALP [Catalytic activity/Vol] 59 U/L Normal 34-123 [facility] Comment on above: Order Comment: Speci men Type: BLOOD SPECIMENOrdering Facility: [facility] Address: [address] [place] [address] Performed By: #### 2 4323-8 ####[facility]ORYCLIA [id number] [address] ALT With P-5'-P [Catalytic activity/Vol] 11 U/L Normal 7-38 [facility] Comment on above: Order Comment: Speci men Type: BLOOD SPECIMENOrdering Facility: [facility] Address: [address] [place] [address] Performed By: #### 2 4323-8 ####[facility]ORYCLIA [id number] [address] STATES OF [facility] Anion gap [Moles/Vol] 10 mmol/L Normal 9-18 [facility] Comment on above: Order Comment: Speci men Type: BLOOD SPECIMENOrdering Facility: [facility] Address: [address] [place] [address] Performed By: #### 2 4323-8 ####[facility]ATORYCLIA [id number] [place] [address] [place] AST With P-5'-P [Catalytic activity/Vol] 15 U/L Normal 13-35 [facility] Comment on above: Order Comment: Speci men Type: BLOOD SPECIMENOrdering Facility: [facility] Address: [address] [place] [address] Performed By: #### 2 4323-8 ####[facility]ORATORYCLIA [id number] [place] [address] [place] Bilirubin [Mass/Vol] 0.2 mg/dL Normal 0.2-1.3 [facility] Comment on above: Order Comment: Speci men Type: BLOOD SPECIMENOrdering Facility: [facility] Address: [address] [place] [address] Performed By: #### 2 4323-8 ####[facility]ORYCLIA [id number] [place] [address] [place] Calcium [Mass/Vol] 8.6 mg/dL Normal 8.5-10.2 [facility] Comment on above: Order Comment: Speci men Type: BLOOD SPECIMENOrdering Facility: [facility] Address: [address] [place] [address] Performed By: #### 2 4323-8 ####[facility]ORATORYCLIA [id number] [place] [address] [place] Chloride [Moles/Vol] 100 mmol/L Normal 97-105 [facility] Comment on above: Order Comment: Speci men Type: BLOOD SPECIMENOrdering Facility: [facility] Address: [address] [place] [address] Performed By: #### 2 4323-8 ####[facility] LABORATORYCLIA [id number] [place] [address] [place] CO2 [Moles/Vol] 29 mmol/L Normal 22-30 [facility] Comment on above: Order Comment: Speci men Type: BLOOD SPECIMENOrdering Facility: [facility] Address: [address] [place] [address] Performed By: #### 2 4323-8 ####[facility] LABORATORYCLIA [id number] [address] STATES OF [facility] Creatinine [Mass/Vol] 1.44 mg/dL High 0.58-0.96 [facility] Comment on above: Order Comment: Spectalia bozena Type: BLOOD SPECIMENOrdering Facility: [facility] Address: [address] [place] [address] Performed By: #### 2 4323-8 ####[facility] LABORATORYCLIA [id number] [address] ESTIMATED GLOMERULAR FILTRATION RATE 40 mL/min/1.73m??? Low >=60 [facility] Comment on above: Order Comment: Scott seals Type: BLOOD SPECIMENOrdering Facility: [facility] Address: [address] [place] [address] Result Comment: Petra mated Glomerular Filtration Rate [...] actual GFR. Performed By: #### 2 4323-8 ####[facility] LABORATORYCLIA [id number] [address] [place] [facility] Glucose [Mass/Vol] 220 mg/dL High 74-99 [facility] Comment on above: Order Comment: Luhtalia seals Type: BLOOD SPECIMENOrdering Facility: [facility] Address: [address] [place] [address] Result Comment: The [place] Diabetes Association (ADA) provides guidance for cutoff [...] Standards of Medical Care in Diabetes 2016, [place] [employer]. Diabetes Care. 2016.39(Suppl 1). Performed By: #### 2 4323-8 ####[facility]ORATORYCLIA [id number] [place] [address] [place] Potassium [Moles/Vol] 5.1 mmol/L Normal 3.7-5.1 [facility] Comment on above: Order Comment: Speci [facility] Type: BLOOD SPECIMENOrdering Facility: [facility] Address: [address] [place] [address] Performed By: #### 2 4323-8 ####[facility]ORATORYCLIA [id number] [place] [address] [place] Protein [Mass/Vol] 5.4 g/dL Low 6.3-8.0 [facility] Comment on above: Order Comment: Speci bozena Type: BLOOD SPECIMENOrdering Facility: [facility] Address: [address] [address] Performed By: #### 2 4323-8 ####[facility]ORATORYCLIA [id number] [place] [address] [place] Sodium [Moles/Vol] 139 mmol/L Normal 136-144 [facility] Comment on above: Order Comment: Luhi bozena Type: BLOOD SPECIMENOrdering Facility: [facility] Address: [address] [address] Performed By: #### 2 4323-8 ####[facility]ORATORYCLIA [id number] [place] [address] [place] Urea nitrogen [Mass/Vol] 33 mg/dL High 7-21 [facility] Comment on above: Order Comment: Luhi men Type: BLOOD SPECIMENOrdering Facility: [facility] Address: [address] [address] Performed By: #### 2 4323-8 ####[facility]ORATORYCLIA [id number] [place], [place] [id number] [place] [address] [place] ECG COMPLETEon 01-28-2023 ECG COMPLETE Normal [facility] ED NOTEon 01-28-2023 ED NOTE HNO ID: [id number] Author: Sandy Steve RN Service: Emergency Medicine Author Type: Registered Nurse Type: ED Notes Filed: 01/28/2023 2:30 PM Note Text: 4Ride ETA 1630 Normal [facility] ED NOTE HNO ID: [id number] Author: Sandy Steve RN Service: Emergency Medicine Author Type: Registered Nurse Type: ED Notes Filed: 01/28/2023 11:53 AM Note Text: Pt stated not wanting to be strait cathed. Dr Díaz notified. Normal [facility] ED NOTE Normal [facility] ED NOTE HNO ID: [id number] Author: [place] RN Service: ? Author Type: Registered Nurse Type: ED Notes Filed: 01/28/2023 10:06 AM Note Text: Bed: 25-ED Expected date: 01/28/23 Expected time: Means of arrival: [facility] Comments: [place]: R/O UTI Normal [facility] ED PROV NOTEon 01-28-2023 ED PROV NOTE Normal [facility] HIGH SENSITIVITY TROPONIN T (INITIAL)on 01-28-2023 HIGH SENSITIVITY MARIE 91 ng/L High <12 [facility] Comment on above: Order Comment: Speci men Type: BLOOD SPECIMENOrdering Facility: [facility] Address: [address] [place], [place] [id number] Result Comment: When assessing risk for acute [...] 30 day MACE. Performed By: #### L [id number] ####[facility]ORATORYCLIA [id number] [address] [place] HIGH SENSITIVITY TROPONIN T (SECOND)on 01-28-2023 HIGH SENSITIVITY MARIE 88 ng/L High <12 [facility] Comment on above: Order Comment: Scott seals Type: BLOOD SPECIMENOrdering Facility: [facility] Address: [address] [place] [address] Result Comment: When assessing risk for acute [...] 30 day MACE. Performed By: #### L [id number] ####[facility]ORATORYCLIA [id number] [address] HIGH SENSITIVITY TROPONIN T (THIRD) 3 HRS AFTER INITIALon 01-28-2023 HIGH SENSITIVITY MARIE 88 ng/L High <12 [facility] Comment on above: Order Comment: Scott seals Type: BLOOD SPECIMENOrdering Facility: [facility] Address: [address] [place] [address] Result Comment: When assessing risk for acute [...] 30 day MACE. Performed By: #### L [id number] ####[facility] LABORATORYCLIA [id number] [address] STATES [place] [facility] Urinalysis complete pnl Uron 01-28-2023 Urinalysis complete panel (U) Abnormal [facility] Comment on above: Order Comment: Scott bozena Type: URINE SPECIMENOrdering Facility: [facility] Address: [address] [place] [address] Performed By: #### 2 4356-8 ####[facility]ORATORYCLIA [id number] [address] [place] XR CHEST 1V FRONTALon 2022 XR CHEST 1V FRONTAL Normal [facility] Basophil percentageOrdered B y: Lucy Quick on 01-26-2023 Chloride [Moles/Vol] 102 mmol/L 98-107 [facility] Glucose [Mass/Vol] 191 mg/dL 74-106 [facility] Comment on above: Fasting Glucose resu lt greater than or equal to 126 mg/dL suggests DIABETES MELLITUS per A.D.A. criteria. Potassium [Moles/Vol] 4.3 mmol/L 3.5-5.1 [facility] Sodium [Moles/Vol] 137 mmol/L 136-145 [facility] WBC (Bld) [#/Vol] 9.9 10*3/uL 4.4-11.0 [facility] Blood erythrocytes count (nu mber/volume)Ordered By: Lucy Quick on 01-26-2023 RBC (Bld) [#/Vol] 3.43 10*6/uL 4.2-5.4 [facility] Blood hemoglobin measurement (mass/volume)Ordered By: Lucy Quick on 01-26-2023 Hemoglobin (Bld) [Mass/Vol] 9.5 g/dL 12.0-15.0 [facility] Blood platelet mean volumeOr dered By: Lucy Quick on 01-26-2023 Platelet mean volume (Bld) [Entitic vol] 11.1 fL 6.2-12.0 [facility] Determination of erythrocyte mean corpuscular volume (MCV)Ordered By: Lucy Quick on 01-26-2023 MCV (RBC) [Entitic vol] 86.9 fL 81-99 [facility] Hematocrit Auto (Bld) [Volum e fraction]Ordered By: Lucy Quick on 01-26-2023 Hematocrit (Bld) [Volume fraction] 29.8 % 37-47 [facility] Laboratory - Chemistry and C hemistry - challengeOrdered By: Lucy Quick on 01-26-2023 CO2 [Moles/Vol] 29.0 mmol/L 21.0-32.0 [facility] Urea nitrogen/Creatinine [Mass ratio] 22.0 mg/mg 10-20 [facility] Laboratory - Hematology and Cell countsOrdered By: Lucy Quick on 01-26-2023 Erythrocyte distribution width (RBC) [Entitic vol] 53.3 fL 35.1-43.9 [facility] Erythrocyte distribution width (RBC) [Ratio] 16.9 % 11.6-14.6 [facility] MCH (RBC) [Entitic mass] 27.7 pg 27.0-32.0 [facility] MCHC Auto (RBC) [Mass/Vol]Or dered By: Lucy Quick on 01-26-2023 MCHC (RBC) [Mass/Vol] 31.9 g/dL 32-36 [facility] No Panel InformationOrdered By: Lucy Quick on 01-26-2023 Estimated GFR (MDRD) Amer 59 mL/min >60 [facility] Comment on above: GFR Calc Estimated GFR (MDRD) Non-Af Amer 49 mL/min >60 [facility] Comment on above: Non- GFR Calc Platelets bldOrdered By: Josee Quick on 01-26-2023 Platelets (Bld) [#/Vol] 298 10*3/uL 150-450 [facility] Serum or plasma calcium catracho urement (mass/volume)Ordered By: Lucy Quick on 01-26-2023 Calcium [Mass/Vol] 8.8 mg/dL 8.5-10.1 [facility] Serum or plasma creatinine m easurement (mass/volume)Ordered By: Lucy Quick on 01-26-2023 Creatinine [Mass/Vol] 1.18 mg/dL 0.55-1.02 [facility] Comment on above: The validity of the calculated GFR & GFRAA in patients over 70 years has not been determined. Clinical correlation is essential. Serum or plasma urea nitroge n measurement (mass/volume)Ordered By: Lucy Quick on 01-26-2023 Urea nitrogen [Mass/Vol] 26 mg/dL 7-18 [facility] Thin prep Papanicolaou smear with manual screeningOrdered By: Lucy Quick on 01-26-2023 Thin prep Papanicolaou smear with manual screening 6 5-15 [facility] Absolute lymphocyte countOrd ered By: Lucy Quick on 01-18-2023 Lymphocytes Auto (Unsp spec) [#/Vol] 2.69 10*3/uL 0.83-4.51 [facility] Basophil percentageOrdered B y: Lucy Quick on 01-18-2023 Basophil percentage Not Reportable [facility] Neutrophils (Bld) [#/Vol] 4.2 10*3/uL 2.0-7.7 [facility] WBC (Bld) [#/Vol] 7.7 10*3/uL 4.4-11.0 [facility] Blood band neutrophil count as percentage of total leukocytesOrdered By: Lucy Quick on 01-18-2023 Band form neutrophils/100 WBC (Bld) 1 % 0-5 [facility] Blood eosinophils/100 leukoc ytesOrdered By: Lucy Quick on 01-18-2023 Eosinophils/100 WBC (Bld) 6 % 0-5 [facility] Blood erythrocytes count (nu mber/volume)Ordered By: Lucy Quick on 01-18-2023 RBC (Bld) [#/Vol] 3.17 10*6/uL 4.2-5.4 [facility] Blood hemoglobin measurement (mass/volume)Ordered By: Lucy Quick on 01-18-2023 Hemoglobin (Bld) [Mass/Vol] 8.9 g/dL 12.0-15.0 [facility] Blood lymphocytes/100 leukoc ytesOrdered By: Lucy Quick on 01-18-2023 Lymphocytes/100 WBC (Bld) 35 % 19-41 [facility] Blood monocytes/100 leukocyt esOrdered By: Lucy Quick on 01-18-2023 Monocytes/100 WBC (Bld) 3 % 0-10 [facility] Blood platelet adequacy dete ction by light microscopyOrdered By: Lucy Quick on 01-18-2023 Platelets LM Ql (Bld) ADEQUATE ADEQ [facility] Blood platelet mean volumeOr dered By: Lucy Quick on 01-18-2023 Platelet mean volume (Bld) [Entitic vol] 9.6 fL 6.2-12.0 [facility] Blood segmented neutrophils/ 100 leukocytesOrdered By: Lucy Quick on 01-18-2023 Segmented neutrophils/100 WBC (Bld) 54 % 47-70 [facility] Determination of erythrocyte mean corpuscular volume (MCV)Ordered By: Lucy Quick on 01-18-2023 MCV (RBC) [Entitic vol] 94.6 fL 81-99 [facility] Hematocrit Auto (Bld) [Volum e fraction]Ordered By: Lucy Quick on 01-18-2023 Hematocrit (Bld) [Volume fraction] 30.0 % 37-47 [facility] Laboratory - Hematology and Cell countsOrdered By: Lucy Quick on 01-18-2023 Erythrocyte distribution width (RBC) [Entitic vol] 55.1 fL 35.1-43.9 [facility] Erythrocyte distribution width (RBC) [Ratio] 15.9 % 11.6-14.6 [facility] MCH (RBC) [Entitic mass] 28.1 pg 27.0-32.0 [facility] MCHC Auto (RBC) [Mass/Vol]Or dered By: Lucy Quick on 01-18-2023 MCHC (RBC) [Mass/Vol] 29.7 g/dL 32-36 [facility] No Panel InformationOrdered By: Lucy Quick on 01-18-2023 Plasma Cells % (manual) 1 % [facility] Platelets bldOrdered By: Pet roro Quick on 01-18-2023 Platelets (Bld) [#/Vol] 236 10*3/uL 150-450 [facility] RBC morphologyOrdered By: Jemal Campos on 01-18-2023 RBC morphology finding Nom (Bld) NORM C+C NORMAL NORM C&C [facility] Review by pathologistOrdered By: Lucy Quick on 01-18-2023 Pathologist review Anselmo (Unsp spec) [Interp] Reviewed [facility] Comment on above: Previous reported re sult: Carol johnson Edited by: RGOOD on 01/19/23:09Neutrophilic left shift.Normocytic anemia.Clinical correlation necessary.Gene Fountain M.D. 01/19/23 AMENDED REPORT 01/19/23935 PATH REV previously reported as: Carol johnson Total cell countOrdered By: Lucy Quick on 01-18-2023 Cells counted Molgen (Bld/Tiss) [#] 100 MANUAL DIFF [facility] Basophil percentageOrdered B y: Lucy Quick on 01-17-2023 Chloride [Moles/Vol] 106 mmol/L 98-107 [facility] Glucose [Mass/Vol] 131 mg/dL 74-106 [facility] Comment on above: Fasting Glucose resu lt greater than or equal to 126 mg/dL suggests DIABETES MELLITUS per A.D.A. criteria. Potassium [Moles/Vol] 4.7 mmol/L 3.5-5.1 [facility] Sodium [Moles/Vol] 142 mmol/L 136-145 [facility] CNPNon 01-17-2023 CNPN Normal [facility] CNPTOUTREACHon 01-17-2023 CNPTOUTREACH Normal [facility] Laboratory - Chemistry and C hemistry - challengeOrdered By: Lucy Quick on 01-17-2023 CO2 [Moles/Vol] 28.0 mmol/L 21.0-32.0 [facility] Urea nitrogen/Creatinine [Mass ratio] 18.0 mg/mg 10-20 [facility] No Panel InformationOrdered By: Lucy Quick on 01-17-2023 Estimated GFR (MDRD) Amer 51 mL/min >60 [facility] Comment on above: GFR Calc Estimated GFR (MDRD) Non-Af Amer 43 mL/min >60 [facility] Comment on above: Non- GFR Calc Serum or plasma calcium catracho urement (mass/volume)Ordered By: Lucy Quick on 01-17-2023 Calcium [Mass/Vol] 8.6 mg/dL 8.5-10.1 [facility] Serum or plasma creatinine m easurement (mass/volume)Ordered By: Lucy Quick on 01-17-2023 Creatinine [Mass/Vol] 1.33 mg/dL 0.55-1.02 [facility] Comment on above: The validity of the calculated GFR & GFRAA in patients over 70 years has not been determined. Clinical correlation is essential. Serum or plasma urea nitroge n measurement (mass/volume)Ordered By: Lucy Quick on 01-17-2023 Urea nitrogen [Mass/Vol] 24 mg/dL 7-18 [facility] Thin prep Papanicolaou smear with manual screeningOrdered By: Lucy Quick on 01-17-2023 Thin prep Papanicolaou smear with manual screening 8 5-15 [facility] CASE MANAGEMon 01-16-2023 CASE MANAGEM Normal [facility] CBC panel Auto (Bld)on 01-16 Erythrocyte distribution width (RBC) [Ratio] 15.9 % High 11.5-15.0 [facility] Comment on above: Order Comment: Speci men Type: BLOOD SPECIMENOrdering Facility: [facility] Address: [address] [place] [address] Performed By: #### 5 8410-2 ####[facility] LABORATORYCLIA [id number] [address] [place] [facility] Hematocrit (Bld) [Volume fraction] 29.9 % Low 36.0-46.0 [facility] Comment on above: Order Comment: Speci men Type: BLOOD SPECIMENOrdering Facility: [facility] Address: [address] [place] [address] Performed By: #### 5 8410-2 ####[facility]ORATORYCLIA [id number] [address] [place] [facility] Hemoglobin (Bld) [Mass/Vol] 8.9 g/dL Low 11.5-15.5 [facility] Comment on above: Order Comment: Speci men Type: BLOOD SPECIMENOrdering Facility: [facility] Address: [address] [place] [address] Performed By: #### 5 8410-2 ####[facility]ORATORYCLIA [id number] [address] [place] MCH (RBC) [Entitic mass] 28.3 pg Normal 26.0-34.0 [facility] Comment on above: Order Comment: Speci men Type: BLOOD SPECIMENOrdering Facility: [facility] Address: [address] [place] [address] Performed By: #### 5 8410-2 ####[facility]ORATORYCLIA [id number] [address] [place] MCHC (RBC) [Mass/Vol] 29.8 g/dL Low 30.5-36.0 [facility] Comment on above: Order Comment: Speci men Type: BLOOD SPECIMENOrdering Facility: [facility] Address: [address] [place] [address] Performed By: #### 5 8410-2 ####[facility]ORATORYCLIA [id number] [address] MCV (RBC) [Entitic vol] 95.2 fL Normal 80.0-100.0 [facility] Comment on above: Order Comment: Speci men Type: BLOOD SPECIMENOrdering Facility: [facility] Address: [address] [place] [address] Performed By: #### 5 8410-2 ####[facility]ORATORYCLIA [id number] [address] Nucleated RBC (Bld) [#/Vol] 10*3/uL Normal <0.01 [facility] Comment on above: Order Comment: Speci men Type: BLOOD SPECIMENOrdering Facility: [facility] Address: [address] [place] [address] Performed By: #### 5 8410-2 ####[facility]ATORYCLIA [id number] [address] Platelet mean volume (Bld) [Entitic vol] 8.8 fL Low 9.0-12.7 [facility] Comment on above: Order Comment: Speci men Type: BLOOD SPECIMENOrdering Facility: [facility] Address: [address] [place] [address] Performed By: #### 5 8410-2 ####[facility]ATORYCLIA [id number] [address] Platelets (Bld) [#/Vol] 253 10*3/uL Normal 150-400 [facility] Comment on above: Order Comment: Speci men Type: BLOOD SPECIMENOrdering Facility: [facility] Address: [address] [place] [address] Performed By: #### 5 8410-2 ####[facility]ATORYCLIA [id number] [address] RBC (Bld) [#/Vol] 3.14 10*6/uL Low 3.90-5.20 [facility] Comment on above: Order Comment: Speci men Type: BLOOD SPECIMENOrdering Facility: [facility] Address: [address] [place] [address] Performed By: #### 5 8410-2 ####[facility]ORATORYCLIA [id number] [place] [address] [place] WBC (Bld) [#/Vol] 6.92 10*3/uL Normal 3.70-11.00 [facility] Comment on above: Order Comment: Speci men Type: BLOOD SPECIMENOrdering Facility: [facility] Address: [address] [place] [address] Performed By: #### 5 8410-2 ####[facility]ORATORYCLIA [id number] [address] OF [place] CNDSon 01-16-2023 CNDS Normal [facility] Renal function 2000 panelon 01-16-2023 Albumin [Mass/Vol] 2.6 g/dL Low 3.9-4.9 [facility] Comment on above: Order Comment: Speci men Type: BLOOD SPECIMENOrdering Facility: [facility] Address: [address] [place] [address] Performed By: #### 2 4362-6 ####[facility]ORATORYCLIA [id number] [place] [address] [place] Anion gap [Moles/Vol] 7 mmol/L Low 9-18 [facility] Comment on above: Order Comment: Speci men Type: BLOOD SPECIMENOrdering Facility: [facility] Address: [address] [place] [address] Performed By: #### 2 4362-6 ####[facility]ORATORYCLIA [id number] [address] [place] Calcium [Mass/Vol] 8.2 mg/dL Low 8.5-10.2 [facility] Comment on above: Order Comment: Speci men Type: BLOOD SPECIMENOrdering Facility: [facility] Address: [address] [place] [address] Performed By: #### 2 4362-6 ####[facility]ORATORYCLIA [id number] [address] [place] Chloride [Moles/Vol] 101 mmol/L Normal 97-105 [facility] Comment on above: Order Comment: Speci men Type: BLOOD SPECIMENOrdering Facility: [facility] Address: [address] [place] [address] Performed By: #### 2 4362-6 ####[facility]ORATORYCLIA [id number] [address] [place] CO2 [Moles/Vol] 32 mmol/L High 22-30 [facility] Comment on above: Order Comment: Speci men Type: BLOOD SPECIMENOrdering Facility: [facility] Address: [address] [place] [address] Performed By: #### 2 4362-6 ####[facility]ORATORYCLIA [id number] [address] [place] Creatinine [Mass/Vol] 1.04 mg/dL High 0.58-0.96 [facility] Comment on above: Order Comment: Speci men Type: BLOOD SPECIMENOrdering Facility: [facility] Address: [address] [place] [address] Performed By: #### 2 4362-6 ####[facility]ORATORYCLIA [id number] [address] ESTIMATED GLOMERULAR FILTRATION RATE 60 mL/min/1.73m??? Normal >=60 [facility] Comment on above: Order Comment: Speci men Type: BLOOD SPECIMENOrdering Facility: [facility] Address: [address] [place] [address] Result Comment: Petra mated Glomerular Filtration Rate [...] actual GFR. Performed By: #### 2 4362-6 ####[facility] CENTERCLIA [id number] [place] [address] [place] Glucose [Mass/Vol] 222 mg/dL High 74-99 [facility] Comment on above: Order Comment: Scott seals Type: BLOOD SPECIMENOrdering Facility: [facility] Address: [address] [place] [address] Result Comment: The [place] [employer] (ADA) provides guidance for cutoff [...] Standards of Medical Care in Diabetes 2016, [place] [employer]. Diabetes Care. 2016.39(Suppl 1). Performed By: #### 2 4362-6 ####[place] HOSPITALIA [id number] [place] [address] [place] Phosphate [Mass/Vol] 2.5 mg/dL Low 2.7-4.8 [facility] Comment on above: Order Comment: Scott seals Type: BLOOD SPECIMENOrdering Facility: [facility] Address: [address] [address] Performed By: #### 2 4362-6 ####[facility] LABORATORYIA [id number] [place] [address] [place] Potassium [Moles/Vol] 4.0 mmol/L Normal 3.7-5.1 [facility] Comment on above: Order Comment: Scott seals Type: BLOOD SPECIMENOrdering Facility: [facility] Address: [address] [place] [address] Performed By: #### 2 4362-6 ####[facility]ORATORYCLIA [id number] [address] [place] Sodium [Moles/Vol] 140 mmol/L Normal 136-144 [facility] Comment on above: Order Comment: Speci men Type: BLOOD SPECIMENOrdering Facility: [facility] Address: [address] [place] [address] Performed By: #### 2 4362-6 ####[facility]ATORYCLIA [id number] [place] [address] [place] Urea nitrogen [Mass/Vol] 25 mg/dL High 7-21 [facility] Comment on above: Order Comment: Speci men Type: BLOOD SPECIMENOrdering Facility: [facility] Address: [address] [place] [address] Performed By: #### 2 4362-6 ####[facility]ORATORYCLIA [id number] [address] [place] CASE MGT INIT ASSESon 2022 CASE MGT INIT ASSES Normal [facility] CBC panel Auto (Bld)on 01-15 Erythrocyte distribution width (RBC) [Ratio] 16.4 % High 11.5-15.0 [facility] Comment on above: Order Comment: Speci men Type: BLOOD SPECIMENOrdering Facility: [facility] Address: [address] [place] [address] Performed By: #### 5 8410-2 ####[facility]ATORYCLIA [id number] [address] [place] Hematocrit (Bld) [Volume fraction] 30.0 % Low 36.0-46.0 [facility] Comment on above: Order Comment: Speci men Type: BLOOD SPECIMENOrdering Facility: [facility] Address: [address] [place] [address] Performed By: #### 5 8410-2 ####[facility]ORATORYCLIA [id number] [place] [address] [place] Hemoglobin (Bld) [Mass/Vol] 8.6 g/dL Low 11.5-15.5 [facility] Comment on above: Order Comment: Speci men Type: BLOOD SPECIMENOrdering Facility: [facility] Address: [address] [place] [address] Performed By: #### 5 8410-2 ####[facility]ATORYCLIA [id number] [address] MCH (RBC) [Entitic mass] 28.0 pg Normal 26.0-34.0 [facility] Comment on above: Order Comment: Speci men Type: BLOOD SPECIMENOrdering Facility: [facility] Address: [address] [place] [address] Performed By: #### 5 8410-2 ####[facility]ORATORYCLIA [id number] [address] [facility] MCHC (RBC) [Mass/Vol] 28.7 g/dL Low 30.5-36.0 [facility] Comment on above: Order Comment: Speci men Type: BLOOD SPECIMENOrdering Facility: [facility] Address: [address] [place] [address] Performed By: #### 5 8410-2 ####[facility]ATORYCLIA [id number] [address] MCV (RBC) [Entitic vol] 97.7 fL Normal 80.0-100.0 [facility] Comment on above: Order Comment: Speci men Type: BLOOD SPECIMENOrdering Facility: [facility] Address: [address] [place] [address] Performed By: #### 5 8410-2 ####[facility]ATORYCLIA [id number] [address] Nucleated RBC (Bld) [#/Vol] 10*3/uL Normal <0.01 [facility] Comment on above: Order Comment: Speci men Type: BLOOD SPECIMENOrdering Facility: [facility] Address: [address] [place] [address] Performed By: #### 5 8410-2 ####[facility]ATORYCLIA [id number] [address] [place] Platelet mean volume (Bld) [Entitic vol] 8.6 fL Low 9.0-12.7 [facility] Comment on above: Order Comment: Speci men Type: BLOOD SPECIMENOrdering Facility: [facility] Address: [address] [place] [address] Performed By: #### 5 8410-2 ####[facility]ATORYCLIA [id number] [address] [place] Platelets (Bld) [#/Vol] 243 10*3/uL Normal 150-400 [facility] Comment on above: Order Comment: Speci men Type: BLOOD SPECIMENOrdering Facility: [facility] Address: [address] [place] [address] Performed By: #### 5 8410-2 ####[facility]ATORYCLIA [id number] [address] [place] RBC (Bld) [#/Vol] 3.07 10*6/uL Low 3.90-5.20 [facility] Comment on above: Order Comment: Speci men Type: BLOOD SPECIMENOrdering Facility: [facility] Address: [address] [place] [address] Performed By: #### 5 8410-2 ####[facility]ATORYCLIA [id number] [place] [address] [place] WBC (Bld) [#/Vol] 6.50 10*3/uL Normal 3.70-11.00 [facility] Comment on above: Order Comment: Speci men Type: BLOOD SPECIMENOrdering Facility: [facility] Address: [address] [place] [address] Performed By: #### 5 8410-2 ####[facility]ATORYCLIA [id number] [address] [place] CNPNon 01-15-2023 CNPN Normal [facility] CNPTOUTREACHon 01-15-2023 CNPTOUTREACH Normal [facility] CONSULT PROGon 01-15-2023 CONSULT PROG Normal [facility] Renal function 2000 panelon 01-15-2023 Albumin [Mass/Vol] 2.6 g/dL Low 3.9-4.9 [facility] Comment on above: Order Comment: Speci men Type: BLOOD SPECIMENOrdering Facility: [facility] Address: [address] [place] [address] Performed By: #### 2 4362-6 ####[facility]ATORYCLIA [id number] [place] [address] [place] Anion gap [Moles/Vol] 7 mmol/L Low 9-18 [facility] Comment on above: Order Comment: Speci men Type: BLOOD SPECIMENOrdering Facility: [facility] Address: [address] [place] [address] Performed By: #### 2 4362-6 ####[facility]ATORYCLIA [id number] [place] [address] [place] Calcium [Mass/Vol] 8.4 mg/dL Low 8.5-10.2 [facility] Comment on above: Order Comment: Speci men Type: BLOOD SPECIMENOrdering Facility: [facility] Address: [address] [place] [address] Performed By: #### 2 4362-6 ####[facility]ATORYCLIA [id number] [place] [address] [place] Chloride [Moles/Vol] 101 mmol/L Normal 97-105 [facility] Comment on above: Order Comment: Speci men Type: BLOOD SPECIMENOrdering Facility: [facility] Address: [address] [place] [address] Performed By: #### 2 4362-6 ####[facility]ATORYCLIA [id number] [place] [address] [place] CO2 [Moles/Vol] 32 mmol/L High 22-30 [facility] Comment on above: Order Comment: Speci men Type: BLOOD SPECIMENOrdering Facility: [facility] Address: [address] [address] Performed By: #### 2 4362-6 ####[facility] HOSPITALIA [id number] [address] Creatinine [Mass/Vol] 1.34 mg/dL High 0.58-0.96 [facility] Comment on above: Order Comment: Spectalia seals Type: BLOOD SPECIMENOrdering Facility: [facility] Address: [address] [address] Performed By: #### 2 4362-6 ####[facility] CENTERCLIA [id number] [address] ESTIMATED GLOMERULAR FILTRATION RATE 44 mL/min/1.73m??? Low >=60 [facility] Comment on above: Order Comment: Scott seals Type: BLOOD SPECIMENOrdering Facility: [facility] Address: [address] [place] [address] Result Comment: Petra mated Glomerular Filtration Rate [...] actual GFR. Performed By: #### 2 4362-6 ####[facility]ORATORYCLIA [id number] [address] STATES OF [facility] Glucose [Mass/Vol] 272 mg/dL High 74-99 [facility] Comment on above: Order Comment: Scott seals Type: BLOOD SPECIMENOrdering Facility: [facility] Address: [address] [place] [address] Result Comment: The [place] [employer] (ADA) provides guidance for cutoff [...] Standards of Medical Care in Diabetes 2016, [place] [employer]. Diabetes Care. 2016.39(Suppl 1). Performed By: #### 2 4362-6 ####[facility]ATORYCLIA [id number] [place] [address] [place] Phosphate [Mass/Vol] 3.0 mg/dL Normal 2.7-4.8 [facility] Comment on above: Order Comment: Scott seals Type: BLOOD SPECIMENOrdering Facility: [facility] Address: [address] [place] [address] Performed By: #### 2 4362-6 ####[facility]ATORYCLIA [id number] [place] [address] [place] Potassium [Moles/Vol] 4.1 mmol/L Normal 3.7-5.1 [facility] Comment on above: Order Comment: Scott seals Type: BLOOD SPECIMENOrdering Facility: [facility] Address: [address] [place] [address] Performed By: #### 2 4362-6 ####[facility]ATORYCLIA [id number] [place] [address] [place] Sodium [Moles/Vol] 140 mmol/L Normal 136-144 [facility] Comment on above: Order Comment: Luhi bozena Type: BLOOD SPECIMENOrdering Facility: [facility] Address: [address] [address] Performed By: #### 2 4362-6 ####[facility]ATORYCLIA [id number] [place] [address] [place] Urea nitrogen [Mass/Vol] 29 mg/dL High 7-21 [facility] Comment on above: Order Comment: Luhi bozena Type: BLOOD SPECIMENOrdering Facility: [facility] Address: [address] [address] Performed By: #### 2 4362-6 ####[facility]ORATORYCLIA [id number] [address] [facility] THERAPY NTon 01-15-2023 THERAPY NT Normal [facility] THERAPY NT Normal [facility] Ammonia Plas-sCncon 01-15-20 23 Ammonia (P) [Moles/Vol] 20 umol/L Normal 11-51 [facility] Comment on above: Order Comment: Speci men Type: BLOOD SPECIMENOrdering Facility: [facility] Address: [address] [address] Performed By: #### 1 6362-6 ####[facility]ATORYCLIA [id number] [address] CBC panel Auto (Bld)on 01-14 Erythrocyte distribution width (RBC) [Ratio] 16.3 % High 11.5-15.0 [facility] Comment on above: Order Comment: Speci men Type: BLOOD SPECIMENOrdering Facility: [facility] Address: [address] [address] Performed By: #### 5 8410-2 ####[facility]ATORYCLIA [id number] [address] Hematocrit (Bld) [Volume fraction] 32.5 % Low 36.0-46.0 [facility] Comment on above: Order Comment: Speci men Type: BLOOD SPECIMENOrdering Facility: [facility] Address: [address] [address] Performed By: #### 5 8410-2 ####[facility]ATORYCLIA [id number] [address] [place] Hemoglobin (Bld) [Mass/Vol] 9.4 g/dL Low 11.5-15.5 [facility] Comment on above: Order Comment: Speci men Type: BLOOD SPECIMENOrdering Facility: [facility] Address: [address] [address] Performed By: #### 5 8410-2 ####[facility]ATORYCLIA [id number] [address] MCH (RBC) [Entitic mass] 28.0 pg Normal 26.0-34.0 [facility] Comment on above: Order Comment: Speci men Type: BLOOD SPECIMENOrdering Facility: [facility] Address: [address] [place] [address] Performed By: #### 5 8410-2 ####[facility]ATORYCLIA [id number] [address] MCHC (RBC) [Mass/Vol] 28.9 g/dL Low 30.5-36.0 [facility] Comment on above: Order Comment: Speci men Type: BLOOD SPECIMENOrdering Facility: [facility] Address: [address] [place] [address] Performed By: #### 5 8410-2 ####[facility]ATORYCLIA [id number] [address] MCV (RBC) [Entitic vol] 96.7 fL Normal 80.0-100.0 [facility] Comment on above: Order Comment: Speci men Type: BLOOD SPECIMENOrdering Facility: [facility] Address: [address] [place] [address] Performed By: #### 5 8410-2 ####[facility]ATORYCLIA [id number] [address] Nucleated RBC (Bld) [#/Vol] 10*3/uL Normal <0.01 [facility] Comment on above: Order Comment: Speci men Type: BLOOD SPECIMENOrdering Facility: [facility] Address: [address] [place] [address] Performed By: #### 5 8410-2 ####[facility]ATORYCLIA [id number] [address] Platelet mean volume (Bld) [Entitic vol] 8.5 fL Low 9.0-12.7 [facility] Comment on above: Order Comment: Speci men Type: BLOOD SPECIMENOrdering Facility: [facility] Address: [address] [address] Performed By: #### 5 8410-2 ####[facility]ATORYCLIA [id number] [address] Platelets (Bld) [#/Vol] 255 10*3/uL Normal 150-400 [facility] Comment on above: Order Comment: Speci men Type: BLOOD SPECIMENOrdering Facility: [facility] Address: [address] [address] Performed By: #### 5 8410-2 ####[facility]ORATORYCLIA [id number] [address] [facility] RBC (Bld) [#/Vol] 3.36 10*6/uL Low 3.90-5.20 [facility] Comment on above: Order Comment: Speci men Type: BLOOD SPECIMENOrdering Facility: [facility] Address: [address] [place] [address] Performed By: #### 5 8410-2 ####[facility]ATORYCLIA [id number] [address] [facility] WBC (Bld) [#/Vol] 5.12 10*3/uL Normal 3.70-11.00 [facility] Comment on above: Order Comment: Speci men Type: BLOOD SPECIMENOrdering Facility: [facility] Address: [address] [place] [address] Performed By: #### 5 8410-2 ####[facility]ATORYCLIA [id number] [address] Gas and Carbon monoxide pane l (BldV)on 01-14-2023 Base excess Calc (BldV) [Moles/Vol] 7 mmol/L High 0-2 [facility] Comment on above: Order Comment: Speci men Type: VENOUS BLOOD SPECIMENOrdering Facility: [facility] Address: [address] [place] [address] Performed By: #### 2 4344-4 ####[facility]ATORYCLIA [id number] [address] Body temperature 98.6 [degF] Normal [facility] Comment on above: Order Comment: Speci men Type: VENOUS BLOOD SPECIMENOrdering Facility: [facility] Address: [address] [place] [address] Performed By: #### 2 4344-4 ####[facility]ATORYCLIA [id number] [address] [facility] Calcium.ionized (BldV) [Mass/Vol] 1.10 mmol/L Normal 1.08-1.30 [facility] Comment on above: Order Comment: Speci men Type: VENOUS BLOOD SPECIMENOrdering Facility: [facility] Address: [address] [place] [address] Performed By: #### 2 4344-4 ####[facility]ATORYCLIA [id number] [address] Calcium.ionized adjusted to pH 7.4 (BldA) [Moles/Vol] 1.09 mmol/L Normal 1.08-1.30 [facility] Comment on above: Order Comment: Speci men Type: VENOUS BLOOD SPECIMENOrdering Facility: [facility] Address: [address] [place] [address] Performed By: #### 2 4344-4 ####[facility]ATORYCLIA [id number] [address] [place] Carboxyhemoglobin (BldV) [Mass fraction] <1.0 Normal 0.0-2.0 [facility] Comment on above: Order Comment: Speci men Type: VENOUS BLOOD SPECIMENOrdering Facility: [facility] Address: [address] [place] [address] Result Comment: Carb oxyhemoglobin Reference Range for Smokers: 2.0-8.0% Performed By: #### 2 4344-4 ####[facility]ATORYCLIA [id number] [address] [place] Chloride [Moles/Vol] 104 mmol/L Normal 102-109 [facility] Comment on above: Order Comment: Speci men Type: VENOUS BLOOD SPECIMENOrdering Facility: [facility] Address: [address] [address] Performed By: #### 2 4344-4 ####[facility]ATORYCLIA [id number] [address] [place] CO2 (BldV) [Partial pressure] 58 mm[Hg] High 42-55 [facility] Comment on above: Order Comment: Speci men Type: VENOUS BLOOD SPECIMENOrdering Facility: [facility] Address: [address] [address] Performed By: #### 2 4344-4 ####[facility]ATORYCLIA [id number] [address] [place] CO2 [Moles/Vol] 31 mmol/L High 25-29 [facility] Comment on above: Order Comment: Speci men Type: VENOUS BLOOD SPECIMENOrdering Facility: [facility] Address: [address] [address] Performed By: #### 2 4344-4 ####[facility]ATORYCLIA [id number] [place] [address] [place] Glucose [Mass/Vol] 149 mg/dL High 60-105 [facility] Comment on above: Order Comment: Speci men Type: VENOUS BLOOD SPECIMENOrdering Facility: [facility] Address: [address] [address] Performed By: #### 2 4344-4 ####[facility]ATORYCLIA [id number] [place] [address] [place] HCO3 (Bld) [Moles/Vol] 33 mmol/L High 24-28 [facility] Comment on above: Order Comment: Speci men Type: VENOUS BLOOD SPECIMENOrdering Facility: [facility] Address: [address] [place] [address] Performed By: #### 2 4344-4 ####[facility]ATORYCLIA [id number] [place] [address] [place] Hematocrit (Bld) [Volume fraction] 28.0 % Low 36.0-46.0 [facility] Comment on above: Order Comment: Speci men Type: VENOUS BLOOD SPECIMENOrdering Facility: [facility] Address: [address] [address] Performed By: #### 2 4344-4 ####[facility] LABORATORYCLIA [id number] [address] STATES [facility] Hemoglobin (Bld) [Mass/Vol] 9.0 g/dL Low 11.5-15.5 [facility] Comment on above: Order Comment: Speci men Type: VENOUS BLOOD SPECIMENOrdering Facility: [facility] Address: [address] [place] [address] Performed By: #### 2 4344-4 ####[facility]ATORYCLIA [id number] [address] [place] Lactate [Moles/Vol] 1.2 mmol/L Normal 0.5-2.2 [facility] Comment on above: Order Comment: Speci men Type: VENOUS BLOOD SPECIMENOrdering Facility: [facility] Address: [address] [place] [address] Performed By: #### 2 4344-4 ####[facility]ATORYCLIA [id number] [address] [place] Methemoglobin (Bld) [Mass fraction] % Normal 0.0-1.5 [facility] Comment on above: Order Comment: Speci men Type: VENOUS BLOOD SPECIMENOrdering Facility: [facility] Address: [address] [place] [address] Performed By: #### 2 4344-4 ####[facility]ORATORYCLIA [id number] [address] O2 THERAPY NC = Nasal Cannula Normal [facility] Comment on above: Order Comment: Speci men Type: VENOUS BLOOD SPECIMENOrdering Facility: [facility] Address: [address] [place] [address] Result Comment: 4L Performed By: #### 2 4344-4 ####[facility]ORATORYCLIA [id number] [address] [place] Oxygen (BldV) [Partial pressure] 112 mm[Hg] High 35-45 [facility] Comment on above: Order Comment: Speci men Type: VENOUS BLOOD SPECIMENOrdering Facility: [facility] Address: [address] [place] [address] Performed By: #### 2 4344-4 ####[facility]ATORYCLIA [id number] [address] [place] Oxygen saturation in Venous blood 96 % High 60-85 [facility] Comment on above: Order Comment: Speci men Type: VENOUS BLOOD SPECIMENOrdering Facility: [facility] Address: [address] [place] [address] Performed By: #### 2 4344-4 ####[facility]ATORYCLIA [id number] [address] [place] Oxyhemoglobin (BldV) [Mass fraction] 95 % High 60-85 [facility] Comment on above: Order Comment: Speci men Type: VENOUS BLOOD SPECIMENOrdering Facility: [facility] Address: [address] [place] [address] Performed By: #### 2 4344-4 ####[facility]ATORYCLIA [id number] [place] [address] [place] pH (BldV) 7.37 [pH] Normal 7.32-7.42 [facility] Comment on above: Order Comment: Speci men Type: VENOUS BLOOD SPECIMENOrdering Facility: [facility] Address: [address] [place] [address] Performed By: #### 2 4344-4 ####[facility]ATORYCLIA [id number] [address] [place] Potassium [Moles/Vol] 3.5 mmol/L Normal 3.5-5.0 [facility] Comment on above: Order Comment: Speci men Type: VENOUS BLOOD SPECIMENOrdering Facility: [facility] Address: [address] [place] [address] Performed By: #### 2 4344-4 ####[facility]ATORYCLIA [id number] [place] [address] [place] Sodium [Moles/Vol] 140 mmol/L Normal 136-144 [facility] Comment on above: Order Comment: Speci men Type: VENOUS BLOOD SPECIMENOrdering Facility: [facility] Address: [address] [address] Performed By: #### 2 4344-4 ####[facility]ATORYCLIA [id number] [place] [address] [place] Renal function 2000 panelon 01-14-2023 Albumin [Mass/Vol] 2.9 g/dL Low 3.9-4.9 [facility] Comment on above: Order Comment: Speci men Type: BLOOD SPECIMENOrdering Facility: [facility] Address: [address] [address] Performed By: #### 2 4362-6 ####[facility]ORYCLIA [id number] [address] STATES [facility] Anion gap [Moles/Vol] 6 mmol/L Low 9-18 [facility] Comment on above: Order Comment: Speci men Type: BLOOD SPECIMENOrdering Facility: [facility] Address: [address] [address] Performed By: #### 2 4362-6 ####L[facility] LABORATORYCLIA [id number] [place] [address] [place] Calcium [Mass/Vol] 8.8 mg/dL Normal 8.5-10.2 [facility] Comment on above: Order Comment: Speci men Type: BLOOD SPECIMENOrdering Facility: [facility] Address: [address] [address] Performed By: #### 2 4362-6 ####LOPEZ LABORATORYCLIA [id number] [place] [address] [place] Chloride [Moles/Vol] 102 mmol/L Normal 97-105 [facility] Comment on above: Order Comment: Speci men Type: BLOOD SPECIMENOrdering Facility: [facility] Address: [address] [address] Performed By: #### 2 4362-6 ####[facility] LABORATORYCLIA [id number] [address] [place] CO2 [Moles/Vol] 35 mmol/L High 22-30 [facility] Comment on above: Order Comment: Speci men Type: BLOOD SPECIMENOrdering Facility: [facility] Address: [address] [address] Performed By: #### 2 4362-6 ####[facility] LABORATORYCLIA [id number] [address] [facility] Creatinine [Mass/Vol] 1.25 mg/dL High 0.58-0.96 [facility] Comment on above: Order Comment: Speci men Type: BLOOD SPECIMENOrdering Facility: [facility] Address: [address] [place] [address] Performed By: #### 2 4362-6 ####[facility] LABORATORYCLIA [id number] [address] ESTIMATED GLOMERULAR FILTRATION RATE 48 mL/min/1.73m??? Low >=60 [facility] Comment on above: Order Comment: Speci men Type: BLOOD SPECIMENOrdering Facility: [facility] Address: [address] [place] [address] Result Comment: Petra mated Glomerular Filtration Rate [...] Performed By: #### 2 4362-6 ####[facility] LABORATORYCLIA [id number] [address] Glucose [Mass/Vol] 96 mg/dL Normal 74-99 [facility] Comment on above: Order Comment: Speci men Type: BLOOD SPECIMENOrdering Facility: [facility] Address: [address] [address] Result Comment: The [place] Diabetes Association (ADA) provides guidance for cutoff [...] Standards of Medical Care in Diabetes 2016, [place] [employer]. Diabetes Care. 2016.39(Suppl 1). Performed By: #### 2 4362-6 ####[facility] LABORATORYCLIA [id number] [place] [address] [place] Phosphate [Mass/Vol] 2.9 mg/dL Normal 2.7-4.8 [facility] Comment on above: Order Comment: Speci men Type: BLOOD SPECIMENOrdering Facility: [facility] Address: [address] [address] Performed By: #### 2 4362-6 ####[facility] LABORATORYCLIA [id number] [place] [address] [place] Potassium [Moles/Vol] 3.9 mmol/L Normal 3.7-5.1 [facility] Comment on above: Order Comment: Speci men Type: BLOOD SPECIMENOrdering Facility: [facility] Address: [address] [address] Performed By: #### 2 4362-6 ####[facility] LABORATORYCLIA [id number] [place] [address] [place] Sodium [Moles/Vol] 143 mmol/L Normal 136-144 [facility] Comment on above: Order Comment: Speci men Type: BLOOD SPECIMENOrdering Facility: [facility] Address: [address] [address] Performed By: #### 2 4362-6 ####[facility] LABORATORYCLIA [id number] [place] [address] [place] Urea nitrogen [Mass/Vol] 24 mg/dL High 7-21 [facility] Comment on above: Order Comment: Speci men Type: BLOOD SPECIMENOrdering Facility: [facility] Address: [address] [place] [address] Performed By: #### 2 4362-6 ####[facility] LABORATORYCLIA [id number] [place] [address] [place] Basic metabolic 2000 panelon 01-13-2023 Anion gap [Moles/Vol] 9 mmol/L Normal 9-18 [facility] Comment on above: Order Comment: Speci men Type: BLOOD SPECIMENOrdering Facility: [facility] Address: [address] [place] [address] Performed By: #### 2 4321-2, ####[facility] LABORATORYCLIA [id number] [place] [address] [place] Calcium [Mass/Vol] 8.4 mg/dL Low 8.5-10.2 [facility] Comment on above: Order Comment: Speci men Type: BLOOD SPECIMENOrdering Facility: [facility] Address: [address] [place] [address] Performed By: #### 2 4321-2, ####[facility] LABORATORYCLIA [id number] [place] [address] [place] Chloride [Moles/Vol] 100 mmol/L Normal 97-105 [facility] Comment on above: Order Comment: Speci men Type: BLOOD SPECIMENOrdering Facility: [facility] Address: [address] [place] [address] Performed By: #### 2 4321-2, ####[facility]ORATORYCLIA [id number] [place] [address] [place] CO2 [Moles/Vol] 33 mmol/L High 22-30 [facility] Comment on above: Order Comment: Speci men Type: BLOOD SPECIMENOrdering Facility: [facility] Address: [address] Performed By: #### 2 4321-2, ####[facility]'S CENTERCLIA [id number] [address] STATES [facility] Creatinine [Mass/Vol] 1.32 mg/dL High 0.58-0.96 [facility] Comment on above: Order Comment: Speci men Type: BLOOD SPECIMENOrdering Facility: [facility] Address: [address] [address] Performed By: #### 2 4321-2, ####[facility]'S CENTERCLIA [id number] [address] [id number] [facility] ESTIMATED GLOMERULAR FILTRATION RATE 45 mL/min/1.73m??? Low >=60 [facility] Comment on above: Order Comment: Speci men Type: BLOOD SPECIMENOrdering Facility: [facility] Address: [address] [place] [address] Result Comment: Petra mated Glomerular Filtration Rate [...] actual GFR. Performed By: #### 2 4321-2, ####[facility] LABORATORYCLIA [id number] [address] [place] Glucose [Mass/Vol] 149 mg/dL High 74-99 [facility] Comment on above: Order Comment: Speci men Type: BLOOD SPECIMENOrdering Facility: [facility] Address: [address] [place] [address] Result Comment: The [place] Diabetes Association (ADA) provides guidance for cutoff [...] Standards of Medical Care in Diabetes 2016, [place] [employer]. Diabetes Care. 2016.39(Suppl 1). Performed By: #### 2 43210-30, ####[facility]ORATORYCLIA [id number] [address] STATES OF [facility] Potassium [Moles/Vol] 3.8 mmol/L Normal 3.7-5.1 [facility] Comment on above: Order Comment: Scott seals Type: BLOOD SPECIMENOrdering Facility: [facility] Address: [address] [place] [address] Performed By: #### 2 4320-11, ####[facility]'S CENTERCLIA [id number] [address] STATES [facility] Sodium [Moles/Vol] 142 mmol/L Normal 136-144 [facility] Comment on above: Order Comment: Scott seals Type: BLOOD SPECIMENOrdering Facility: [facility] Address: [address] [place] [address] Performed By: #### 2 4320-11, ####[facility] LABORATORYCLIA [id number] [address] STATES [facility] Urea nitrogen [Mass/Vol] 33 mg/dL High 7-21 [facility] Comment on above: Order Comment: Speci bozena Type: BLOOD SPECIMENOrdering Facility: [facility] Address: [address] [place] [address] Performed By: #### 2 4320-11, ####[facility]ORATORYCLIA [id number] [address] [place] CBC panel Auto (Bld)on 01-13 Erythrocyte distribution width (RBC) [Ratio] 16.1 % High 11.5-15.0 [facility] Comment on above: Order Comment: Speci men Type: BLOOD SPECIMENOrdering Facility: [facility] Address: [address] [place] [address] Performed By: #### 5 8410-2 ####[facility] LABORATORYCLIA [id number] [address] [facility] Hematocrit (Bld) [Volume fraction] 32.3 % Low 36.0-46.0 [facility] Comment on above: Order Comment: Speci men Type: BLOOD SPECIMENOrdering Facility: [facility] Address: [address] [place] [address] Performed By: #### 5 8410-2 ####[facility]ORATORYCLIA [id number] [address] [facility] Hemoglobin (Bld) [Mass/Vol] 9.5 g/dL Low 11.5-15.5 [facility] Comment on above: Order Comment: Speci men Type: BLOOD SPECIMENOrdering Facility: [facility] Address: [address] [place] [address] Performed By: #### 5 8410-2 ####[facility]ORATORYCLIA [id number] [address] MCH (RBC) [Entitic mass] 28.1 pg Normal 26.0-34.0 [facility] Comment on above: Order Comment: Speci men Type: BLOOD SPECIMENOrdering Facility: [facility] Address: [address] [place] [address] Performed By: #### 5 8410-2 ####[facility]ORATORYCLIA [id number] [address] [place] MCHC (RBC) [Mass/Vol] 29.4 g/dL Low 30.5-36.0 [facility] Comment on above: Order Comment: Speci men Type: BLOOD SPECIMENOrdering Facility: [facility] Address: [address] [place] [address] Performed By: #### 5 8410-2 ####[facility]ORATORYCLIA [id number] [address] STATES [facility] MCV (RBC) [Entitic vol] 95.6 fL Normal 80.0-100.0 A [facility] Comment on above: Order Comment: Speci men Type: BLOOD SPECIMENOrdering Facility: [facility] Address: [address] [place] [address] Performed By: #### 5 8410-2 ####[facility]ORATORYCLIA [id number] [address] [place] Nucleated RBC (Bld) [#/Vol] 0.02 10*3/uL High <0.01 [facility] Comment on above: Order Comment: Speci men Type: BLOOD SPECIMENOrdering Facility: [facility] Address: [address] [place] [address] Performed By: #### 5 8410-2 ####[facility]ORATORYCLIA [id number] [address] Platelet mean volume (Bld) [Entitic vol] 8.8 fL Low 9.0-12.7 [facility] Comment on above: Order Comment: Speci men Type: BLOOD SPECIMENOrdering Facility: [facility] Address: [address] [place] [address] Performed By: #### 5 8410-2 ####[facility]ORATORYCLIA [id number] [address] [place] Platelets (Bld) [#/Vol] 288 10*3/uL Normal 150-400 [facility] Comment on above: Order Comment: Speci men Type: BLOOD SPECIMENOrdering Facility: [facility] Address: [address] [place] [address] Performed By: #### 5 8410-2 ####[facility]ORATORYCLIA [id number] [address] OF [place] RBC (Bld) [#/Vol] 3.38 10*6/uL Low 3.90-5.20 [facility] Comment on above: Order Comment: Speci men Type: BLOOD SPECIMENOrdering Facility: [facility] Address: [address] [address] Performed By: #### 5 8410-2 ####[facility]ORATORYCLIA [id number] [address] STATES [facility] WBC (Bld) [#/Vol] 6.38 10*3/uL Normal 3.70-11.00 [facility] Comment on above: Order Comment: Speci men Type: BLOOD SPECIMENOrdering Facility: [facility] Address: [address] [place] [address] Performed By: #### 5 8410-2 ####[facility]ORATORYCLIA [id number] [address] ED NOTEon 01-13-2023 ED NOTE HNO ID: [id number] Author: Nilsa Oneill RN Service: Emergency Medicine Author Type: Registered Nurse Type: ED Notes Filed: 01/13/2023 4:34 AM Note Text: Rc; ready to go up Normal [facility] ED NOTE HNO ID: [id number] Author: Nilsa Oneill RN Service: Emergency Medicine Author Type: Registered Nurse Type: ED Notes Filed: 01/13/2023 3:56 AM Note Text: 1x attempt at report Normal [facility] Magnesium SerPl-mCncon 01-13 Magnesium [Mass/Vol] 1.8 mg/dL Normal 1.7-2.3 [facility] Comment on above: Order Comment: Speci men Type: BLOOD SPECIMENOrdering Facility: [facility] Address: [address] [place] [address] Performed By: #### 2 4321-2, 53807-9 ####[facility] LABORATORYCLIA [id number] [address] [place] NURSING PROGon 01-13-2023 NURSING PROG Normal [facility] ALLIED HEALTHon 01-12-2023 ALLIED HEALTH Normal [facility] CBC W Auto Differential pane l (Bld)on 01-12-2023 Basophils (Bld) [#/Vol] 0.06 10*3/uL Normal <0.11 [facility] Comment on above: Order Comment: Speci men Type: BLOOD SPECIMENOrdering Facility: [facility] Address: [address] [place] [address] Performed By: #### 5 7021-8 ####[facility] LABORATORYCLIA [id number] [address] STATES [facility] Basophils/100 WBC (Bld) 0.7 % Normal A [facility] Comment on above: Order Comment: Speci men Type: BLOOD SPECIMENOrdering Facility: [facility] Address: [address] [place] [address] Performed By: #### 5 7021-8 ####[facility]ORATORYCLIA [id number] [address] Differential cell count method Nom (Bld) Auto Normal [facility] Comment on above: Order Comment: Speci men Type: BLOOD SPECIMENOrdering Facility: [facility] Address: [address] [place] [address] Performed By: #### 5 7021-8 ####[facility]ORATORYCLIA [id number] [address] Eosinophils (Bld) [#/Vol] 0.17 10*3/uL Normal <0.46 [facility] Comment on above: Order Comment: Speci men Type: BLOOD SPECIMENOrdering Facility: [facility] Address: [address] [place] [address] Performed By: #### 5 7021-8 ####[facility] LABORATORYCLIA [id number] [address] Eosinophils/100 WBC (Bld) 2.0 % Normal [facility] Comment on above: Order Comment: Speci men Type: BLOOD SPECIMENOrdering Facility: [facility] Address: [address] [place] [address] Performed By: #### 5 7021-8 ####[facility] LABORATORYCLIA [id number] [place] [address] [place] Erythrocyte distribution width (RBC) [Ratio] 16.3 % High 11.5-15.0 [facility] Comment on above: Order Comment: Speci men Type: BLOOD SPECIMENOrdering Facility: [facility] Address: [address] [place] [address] Performed By: #### 5 7021-8 ####[facility]ORATORYCLIA [id number] [place] [address] [place] Hematocrit (Bld) [Volume fraction] 30.1 % Low 36.0-46.0 [facility] Comment on above: Order Comment: Speci men Type: BLOOD SPECIMENOrdering Facility: [facility] Address: [address] [place] [address] Performed By: #### 5 7021-8 ####[facility]ORATORYCLIA [id number] [place] [address] [place] Hemoglobin (Bld) [Mass/Vol] 8.7 g/dL Low 11.5-15.5 [facility] Comment on above: Order Comment: Speci men Type: BLOOD SPECIMENOrdering Facility: [facility] Address: [address] [place] [address] Performed By: #### 5 7021-8 ####[facility]ORATORYCLIA [id number] [place] [address] [place] Immature granulocytes (Bld) [#/Vol] 0.40 10*3/uL High <0.10 [facility] Comment on above: Order Comment: Speci men Type: BLOOD SPECIMENOrdering Facility: [facility] Address: [address] [place] [address] Performed By: #### 5 7021-8 ####[facility]ORATORYCLIA [id number] [address] [place] Immature granulocytes/100 WBC (Bld) 4.7 % Normal [facility] Comment on above: Order Comment: Speci men Type: BLOOD SPECIMENOrdering Facility: [facility] Address: [address] [place] [address] Performed By: #### 5 7021-8 ####[facility]ORATORYCLIA [id number] [address] [place] Lymphocytes (Bld) [#/Vol] 2.14 10*3/uL Normal 1.00-4.00 [facility] Comment on above: Order Comment: Speci men Type: BLOOD SPECIMENOrdering Facility: [facility] Address: [address] [place] [address] Performed By: #### 5 7021-8 ####[facility]ORATORYCLIA [id number] [address] Lymphocytes/100 WBC (Bld) 25.1 % Normal [facility] Comment on above: Order Comment: Speci men Type: BLOOD SPECIMENOrdering Facility: [facility] Address: [address] [place] [address] Performed By: #### 5 7021-8 ####[facility]ORATORYCLIA [id number] [address] STATES [facility] MCH (RBC) [Entitic mass] 28.1 pg Normal 26.0-34.0 [facility] Comment on above: Order Comment: Speci men Type: BLOOD SPECIMENOrdering Facility: [facility] Address: [address] [place] [address] Performed By: #### 5 7021-8 ####[facility]ORATORYCLIA [id number] [address] [place] MCHC (RBC) [Mass/Vol] 28.9 g/dL Low 30.5-36.0 [facility] Comment on above: Order Comment: Speci men Type: BLOOD SPECIMENOrdering Facility: [facility] Address: [address] [place] [address] Performed By: #### 5 7021-8 ####[facility]ORATORYCLIA [id number] [address] MCV (RBC) [Entitic vol] 97.1 fL Normal 80.0-100.0 A [facility] Comment on above: Order Comment: Speci men Type: BLOOD SPECIMENOrdering Facility: [facility] Address: [address] [address] Performed By: #### 5 7021-8 ####[facility] LABORATORYCLIA [id number] [address] [place] Monocytes (Bld) [#/Vol] 0.93 10*3/uL High <0.87 [facility] Comment on above: Order Comment: Speci men Type: BLOOD SPECIMENOrdering Facility: [facility] Address: [address] [place] [address] Performed By: #### 5 7021-8 ####[facility]ORATORYCLIA [id number] [address] [place] Monocytes/100 WBC (Bld) 10.9 % Normal [facility] Comment on above: Order Comment: Speci men Type: BLOOD SPECIMENOrdering Facility: [facility] Address: [address] [place] [address] Performed By: #### 5 7021-8 ####[facility]ORATORYCLIA [id number] [address] [place] Neutrophils (Bld) [#/Vol] 4.83 10*3/uL Normal 1.45-7.50 [facility] Comment on above: Order Comment: Speci men Type: BLOOD SPECIMENOrdering Facility: [facility] Address: [address] [place] [address] Performed By: #### 5 7021-8 ####[facility]ORATORYCLIA [id number] [address] [place] Neutrophils/100 WBC (Bld) 56.6 % Normal [facility] Comment on above: Order Comment: Speci men Type: BLOOD SPECIMENOrdering Facility: [facility] Address: [address] [place] [address] Performed By: #### 5 7021-8 ####[facility]ORATORYCLIA [id number] [place] [address] [place] Nucleated RBC (Bld) [#/Vol] 0.04 10*3/uL High <0.01 [facility] Comment on above: Order Comment: Speci men Type: BLOOD SPECIMENOrdering Facility: [facility] Address: [address] [address] Performed By: #### 5 7021-8 ####[facility]ORATORYCLIA [id number] [address] STATES [facility] Nucleated RBC/100 WBC (Bld) [Ratio] 0.5 /100 WBC Normal [facility] Comment on above: Order Comment: Speci men Type: BLOOD SPECIMENOrdering Facility: [facility] Address: [address] [address] Performed By: #### 5 7021-8 ####[facility]ORATORYCLIA [id number] [place] [address] [place] Platelet mean volume (Bld) [Entitic vol] 8.8 fL Low 9.0-12.7 [facility] Comment on above: Order Comment: Speci men Type: BLOOD SPECIMENOrdering Facility: [facility] Address: [address] [address] Performed By: #### 5 7021-8 ####[facility]ORATORYCLIA [id number] [address] [place] Platelets (Bld) [#/Vol] 266 10*3/uL Normal 150-400 [facility] Comment on above: Order Comment: Speci men Type: BLOOD SPECIMENOrdering Facility: [facility] Address: [address] [address] Performed By: #### 5 7021-8 ####[facility]ORATORYCLIA [id number] [place] [address] [place] RBC (Bld) [#/Vol] 3.10 10*6/uL Low 3.90-5.20 [facility] Comment on above: Order Comment: Speci men Type: BLOOD SPECIMENOrdering Facility: [facility] Address: [address] [address] Performed By: #### 5 7021-8 ####[facility]ORATORYCLIA [id number] [place] [address] [facility] [place] WBC (Bld) [#/Vol] 8.53 10*3/uL Normal 3.70-11.00 [facility] Comment on above: Order Comment: Speci men Type: BLOOD SPECIMENOrdering Facility: [facility] Address: [address] [place] [address] Performed By: #### 5 7021-8 ####[facility]ORATORYCLIA [id number] [place] [id number] [facility] Comprehensive metabolic 2000 panelon 01-12-2023 Albumin [Mass/Vol] 2.7 g/dL Low 3.9-4.9 [facility] Comment on above: Order Comment: Speci men Type: BLOOD SPECIMENOrdering Facility: [facility] Address: [address] [place] [address] Performed By: #### 2 4323-8, 03408-5, 40163-6 ####[facility]'S CENTERCLIA [id number] [address] [facility] ALP [Catalytic activity/Vol] 58 U/L Normal 34-123 [facility] Comment on above: Order Comment: Speci men Type: BLOOD SPECIMENOrdering Facility: [facility] Address: [address] [place] [address] Performed By: #### 2 4323-8, 43409-6, 01150-7 ####[facility]ORATORYCLIA [id number] [address] ALT With P-5'-P [Catalytic activity/Vol] 14 U/L Normal 7-38 [facility] Comment on above: Order Comment: Speci men Type: BLOOD SPECIMENOrdering Facility: [facility] Address: [address] [place] [address] Performed By: #### 2 4323-8, 88249-6, 00336-3 ####[facility]ORATORYCLIA [id number] [place] [address] [place] Anion gap [Moles/Vol] 10 mmol/L Normal 9-18 [facility] Comment on above: Order Comment: Speci men Type: BLOOD SPECIMENOrdering Facility: [facility] Address: [address] [place] [address] Performed By: #### 2 4323-8, , 75845-5 ####[facility]ORATORYCLIA [id number] [place] [address] [place] AST With P-5'-P [Catalytic activity/Vol] 14 U/L Normal 13-35 [facility] Comment on above: Order Comment: Speci men Type: BLOOD SPECIMENOrdering Facility: [facility] Address: [address] [place] [address] Performed By: #### 2 4323-8, , 61205-6 ####[facility] LABORATORYCLIA [id number] [place] [address] [place] [facility] Bilirubin [Mass/Vol] 0.3 mg/dL Normal 0.2-1.3 [facility] Comment on above: Order Comment: Speci men Type: BLOOD SPECIMENOrdering Facility: [facility] Address: [address] [place] [address] Performed By: #### 2 4323-8, , 93429-9 ####[facility] LABORATORYCLIA [id number] [place] [address] [place] Calcium [Mass/Vol] 8.4 mg/dL Low 8.5-10.2 [facility] Comment on above: Order Comment: Speci men Type: BLOOD SPECIMENOrdering Facility: [facility] Address: [address] [place] [address] Performed By: #### 2 4323-8, , 78795-6 ####[facility] LABORATORYCLIA [id number] [place] [address] [place] Chloride [Moles/Vol] 100 mmol/L Normal 97-105 [facility] Comment on above: Order Comment: Speci men Type: BLOOD SPECIMENOrdering Facility: [facility] Address: [address] [place] [address] Performed By: #### 2 4323-8, 98228-8, 31546-8 ####[facility] CENTERCLIA [id number] [place] [id number] [facility] CO2 [Moles/Vol] 31 mmol/L High 22-30 [facility] Comment on above: Order Comment: Speci men Type: BLOOD SPECIMENOrdering Facility: [facility] Address: [address] [place] [address] Performed By: #### 2 4323-8, 80667-1, 09078-6 ####[facility] CENTERCLIA [id number] [place] [id number] [facility] Creatinine [Mass/Vol] 1.41 mg/dL High 0.58-0.96 [facility] Comment on above: Order Comment: Speci men Type: BLOOD SPECIMENOrdering Facility: [facility] Address: [address] [place] [address] Performed By: #### 2 4323-8, 25341-6, 13123-7 ####[facility] H[facility]PITALIA [id number] [address] ESTIMATED GLOMERULAR FILTRATION RATE 41 mL/min/1.73m??? Low >=60 [facility] Comment on above: Order Comment: Speci men Type: BLOOD SPECIMENOrdering Facility: [facility] Address: [address] [place] [address] Result Comment: Petra mated Glomerular Filtration Rate [...] actual GFR. Performed By: #### 2 4323-8, 21915-5, 50572-4 ####[facility] LABORATORYCLIA [id number] [place] [id number] [place] Glucose [Mass/Vol] 145 mg/dL High 74-99 [facility] Comment on above: Order Comment: Spectalia seals Type: BLOOD SPECIMENOrdering Facility: [facility] Address: [address] [place] [address] Result Comment: The [place] Diabetes Association (ADA) provides guidance for cutoff [...] Standards of Medical Care in Diabetes 2016, [place] [employer]. Diabetes Care. 2016.39(Suppl 1). Performed By: #### 2 4323-8, 69675-1, 68816-3 ####[facility] LABORATORYCLIA [id number] [place] [address] [place] Potassium [Moles/Vol] 3.9 mmol/L Normal 3.7-5.1 [facility] Comment on above: Order Comment: Scott seals Type: BLOOD SPECIMENOrdering Facility: [facility] Address: [address] [place] [address] Performed By: #### 2 4323-8, 03525-2, 62680-2 ####[facility] LABORATORYCLIA [id number] [place] [address] [place] Protein [Mass/Vol] 4.7 g/dL Low 6.3-8.0 [facility] Comment on above: Order Comment: Scott seals Type: BLOOD SPECIMENOrdering Facility: [facility] Address: [address] [place] [address] Performed By: #### 2 4323-8, 57909-2, 82402-6 ####[facility] LABORATORYCLIA [id number] [place] [address] [place] Sodium [Moles/Vol] 141 mmol/L Normal 136-144 [facility] Comment on above: Order Comment: Speci men Type: BLOOD SPECIMENOrdering Facility: [facility] Address: [address] [place] [address] Performed By: #### 2 4323-8, 60647-6, 08943-7 ####[facility] LABORATORYCLIA [id number] [place] [address] [place] Urea nitrogen [Mass/Vol] 33 mg/dL High 7-21 [facility] Comment on above: Order Comment: Speci men Type: BLOOD SPECIMENOrdering Facility: [facility] Address: [place] [address] Performed By: #### 2 4323-8, 42081-3, 36306-7 ####[facility] LABORATORYCLIA [id number] [place] [address] [facility] ECG COMPLETEon 01-12-2023 ECG COMPLETE Normal [facility] ED NOTEon 01-12-2023 ED NOTE Normal [facility] ED NOTE HNO ID: [id number] Author: Mariajose Swain RN Service: ? Author Type: Registered Nurse Type: ED Notes Filed: 01/12/2023 9:40 PM Note Text: Bed: 15-ED Expected date: Expected time: Means of arrival: Comments: Room 36 Normal [facility] ED NOTE HNO ID: [id number] Author: Allison Gaytan RN Service: Emergency Medicine Author Type: Registered Nurse Type: ED Notes Filed: 01/12/2023 9:31 PM Note Text: LIP aware of BP. Normal [facility] ED NOTE HNO ID: [id number] Author: Beatrice Fulton RN Service: Emergency Medicine Author Type: Registered Nurse Type: ED Notes Filed: 01/12/2023 2:00 PM Note Text: Report given to ROYCE Cheney Normal [facility] ED NOTE HNO ID: [id number] Author: Beatrice Fulton RN Service: Emergency Medicine Author Type: Registered Nurse Type: ED Notes Filed: 01/12/2023 1:20 PM Note Text: This RN to assume temporary care of pt @ this time to cover lunch of primary RN Normal [facility] ED NOTE Normal [facility] ED PROV NOTEon 01-12-2023 ED PROV NOTE Normal [facility] ED PROV NOTE Normal [facility] ED PROV NOTE Normal [facility] HIGH SENSITIVITY TROPONIN T (INITIAL)on 01-12-2023 HIGH SENSITIVITY MARIE 97 ng/L High <12 [facility] Comment on above: Order Comment: Scott seals Type: BLOOD SPECIMENOrdering Facility: [facility] Address: [address] [place] [address] Result Comment: When assessing risk for acute [...] 30 day MACE. Performed By: #### L [id number] ####[employer] [facility] LABORATORYCLIA [id number] [address] [place] HIGH SENSITIVITY TROPONIN T (SECOND)on 01-12-2023 HIGH SENSITIVITY MARIE 93 ng/L High <12 [facility] Comment on above: Order Comment: Scott seals Type: BLOOD SPECIMENOrdering Facility: [facility] Address: [address] [place] [address] Result Comment: When assessing risk for acute [...] 30 day MACE. Performed By: #### L [id number] ####[employer] LABORATORYCLIA [id number] [address] [place] HIGH SENSITIVITY TROPONIN T (THIRD) 3 HRS AFTER INITIALon 01-12-2023 HIGH SENSITIVITY MARIE 91 ng/L High <12 [facility] Comment on above: Order Comment: Scott seals Type: BLOOD SPECIMENOrdering Facility: [facility] Address: [address] [place] [address] Result Comment: When assessing risk for acute [...] 30 day MACE. Performed By: #### L [id number] ####[facility] LABORATORYCLIA [id number] [address] HISTORY PHYSICALon HISTORY PHYSICAL Normal [facility] Magnesium [facility] 01-12 Magnesium [Mass/Vol] 1.4 mg/dL Low 1.7-2.3 [facility] Comment on above: Order Comment: Speci men Type: BLOOD SPECIMENOrdering Facility: [facility] Address: [address] [place] [address] Performed By: #### 2 4323-8, 02848-7, 62452-0 ####[facility] CENTERCLIA [id number] [address] NT-proBNP [facility] 01-12 Natriuretic peptide.B prohormone N-Terminal [Mass/Vol] 683 pg/mL High <125 [facility] Comment on above: Order Comment: Speci men Type: BLOOD SPECIMENOrdering Facility: [facility] Address: [address] [place] [address] Performed By: #### 2 4323-8, 65034-6, 11701-6 ####[facility] CENTERCLIA [id number] [address] [facility] SARS-CoV-2 RNA Resp Ql IGGY+p robeon 01-12-2023 SARS-CoV-2 (COVID-19) RNA IGGY+probe Ql (Resp) COVID 19 RESULT: Not detected The method used is RT-PCR or an equivalent NAAT method. Reference Range(the expected result in uninfected individuals): Not detected Normal [facility] Comment on above: Performed By: #### 9 4500-6 ####[facility] LABORATORYCLIA [id number] [place] [address] [place] [facility] Urinalysis complete pnl Uron 01-12-2023 Urinalysis complete panel (U) Abnormal [facility] Comment on above: Order Comment: Speci men Type: URINE SPECIMENOrdering Facility: [facility] Address: [place] [address] Performed By: #### 2 4356-8 ####[facility] LABORATORYCLIA [id number] [place] [address] [place] XR CHEST 1V FRONTALon 2022 XR CHEST 1V FRONTAL Normal [facility] Basophil percentageOrdered B y: Lucy Quick on 01-10-2023 Chloride [Moles/Vol] 103 mmol/L 98-107 [facility] Glucose [Mass/Vol] 98 mg/dL 74-106 [facility] Potassium [Moles/Vol] 4.2 mmol/L 3.5-5.1 [facility] Sodium [Moles/Vol] 145 mmol/L 136-145 [facility] WBC (Bld) [#/Vol] 7.7 10*3/uL 4.4-11.0 [facility] Blood erythrocytes count (nu mber/volume)Ordered By: Lucy Quick on 01-10-2023 RBC (Bld) [#/Vol] 3.08 10*6/uL 4.2-5.4 [facility] Blood hemoglobin measurement (mass/volume)Ordered By: Lucy Quick on 01-10-2023 Hemoglobin (Bld) [Mass/Vol] 8.9 g/dL 12.0-15.0 [facility] Blood platelet mean volumeOr dered By: Lucy Quick on 01-10-2023 Platelet mean volume (Bld) [Entitic vol] 8.9 fL 6.2-12.0 [facility] Determination of erythrocyte mean corpuscular volume (MCV)Ordered By: Lucy Quick on 01-10-2023 MCV (RBC) [Entitic vol] 91.9 fL 81-99 [facility] Hematocrit Auto (Bld) [Volum e fraction]Ordered By: Lucy Quick on 01-10-2023 Hematocrit (Bld) [Volume fraction] 28.3 % 37-47 [facility] Laboratory - Chemistry and C hemistry - challengeOrdered By: Lucy Quick on 01-10-2023 CO2 [Moles/Vol] 34.0 mmol/L 21.0-32.0 [facility] Urea nitrogen/Creatinine [Mass ratio] 23.5 mg/mg 10-20 [facility] Laboratory - Hematology and Cell countsOrdered By: Lucy Quick on 01-10-2023 Erythrocyte distribution width (RBC) [Entitic vol] 51.8 fL 35.1-43.9 [facility] Erythrocyte distribution width (RBC) [Ratio] 15.6 % 11.6-14.6 [facility] MCH (RBC) [Entitic mass] 28.9 pg 27.0-32.0 [facility] MCHC Auto (RBC) [Mass/Vol]Or dered By: Lucy Quick on 01-10-2023 MCHC (RBC) [Mass/Vol] 31.4 g/dL 32-36 [facility] No Panel InformationOrdered By: Lucy Quick on 01-10-2023 Estimated GFR (MDRD) Amer 52 mL/min >60 [facility] Comment on above: GFR Calc Estimated GFR (MDRD) Non-Af Amer 43 mL/min >60 [facility] Comment on above: Non- GFR Calc Platelets bldOrdered By: Josee Quick on 01-10-2023 Platelets (Bld) [#/Vol] 286 10*3/uL 150-450 [facility] Serum or plasma calcium catracho urement (mass/volume)Ordered By: Lucy Quick on 01-10-2023 Calcium [Mass/Vol] 8.6 mg/dL 8.5-10.1 [facility] Serum or plasma creatinine m easurement (mass/volume)Ordered By: Lucy Quick on 01-10-2023 Creatinine [Mass/Vol] 1.32 mg/dL 0.55-1.02 [facility] Comment on above: The validity of the calculated GFR & GFRAA in patients over 70 years has not been determined. Clinical correlation is essential. Serum or plasma urea nitroge n measurement (mass/volume)Ordered By: Lucy Quick on 01-10-2023 Urea nitrogen [Mass/Vol] 31 mg/dL 7-18 [facility] Thin prep Papanicolaou smear with manual screeningOrdered By: Lucy Quick on 01-10-2023 Thin prep Papanicolaou smear with manual screening 8 5-15 [facility] Basophil percentageOrdered B y: Lucy Quick on 01-05-2023 Chloride [Moles/Vol] 103 mmol/L 98-107 [facility] Glucose [Mass/Vol] 87 mg/dL 74-106 [facility] Potassium [Moles/Vol] 4.5 mmol/L 3.5-5.1 [facility] Sodium [Moles/Vol] 142 mmol/L 136-145 [facility] Laboratory - Chemistry and C hemistry - challengeOrdered By: Lucy Quick on 01-05-2023 CO2 [Moles/Vol] 31.0 mmol/L 21.0-32.0 [facility] Urea nitrogen/Creatinine [Mass ratio] 29.9 mg/mg 10-20 [facility] No Panel InformationOrdered By: Lucy Quick on 01-05-2023 Estimated GFR (MDRD) Amer 50 mL/min >60 [facility] Comment on above: GFR Calc Estimated GFR (MDRD) Non-Af Amer 41 mL/min >60 [facility] Comment on above: Non- GFR Calc Serum or plasma calcium catracho urement (mass/volume)Ordered By: Lucy Quick on 01-05-2023 Calcium [Mass/Vol] 8.8 mg/dL 8.5-10.1 [facility] Serum or plasma creatinine m easurement (mass/volume)Ordered By: Lucy Quick on 01-05-2023 Creatinine [Mass/Vol] 1.37 mg/dL 0.55-1.02 [facility] Comment on above: The validity of the calculated GFR & GFRAA in patients over 70 years has not been determined. Clinical correlation is essential. Serum or plasma urea nitroge n measurement (mass/volume)Ordered By: Lucy Quick on 01-05-2023 Urea nitrogen [Mass/Vol] 41 mg/dL 7-18 [facility] Thin prep Papanicolaou smear with manual screeningOrdered By: Lucy Quick on 01-05-2023 Thin prep Papanicolaou smear with manual screening 8 5-15 [facility] ALLIED HEALTHon 01-02-2023 ALLIED HEALTH Normal [facility] Basophil percentageOrdered B y: Lucy Quick on 01-02-2023 WBC (Bld) [#/Vol] 7.0 10*3/uL 4.4-11.0 [facility] Blood erythrocytes count (nu mber/volume)Ordered By: Lucy Quick on 01-02-2023 RBC (Bld) [#/Vol] 3.15 10*6/uL 4.2-5.4 [facility] Blood hemoglobin measurement (mass/volume)Ordered By: Lucy Quick on 01-02-2023 Hemoglobin (Bld) [Mass/Vol] 9.4 g/dL 12.0-15.0 [facility] Blood platelet mean volumeOr dered By: Lucy Quick on 01-02-2023 Platelet mean volume (Bld) [Entitic vol] 9.2 fL 6.2-12.0 [facility] CBC W Auto Differential pane l (Bld)on 01-02-2023 Anisocytosis Ql (Bld) Present Normal [facility] Comment on above: Order Comment: Speci men Type: BLOOD SPECIMENOrdering Facility: [facility] Address: [address] [place] [address] Performed By: #### 5 7021-8 ####[facility] LABORATORYCLIA [id number] [address] [place] [facility] Basophils (Bld) [#/Vol] 0.00 10*3/uL Normal <0.11 [facility] Comment on above: Order Comment: Speci men Type: BLOOD SPECIMENOrdering Facility: [facility] Address: [address] [place] [address] Performed By: #### 5 7021-8 ####[facility] LABORATORYCLIA [id number] [place] [address] [place] Basophils/100 WBC (Bld) 0.0 % Normal A [facility] Comment on above: Order Comment: Speci men Type: BLOOD SPECIMENOrdering Facility: [facility] Address: [address] [place] [address] Performed By: #### 5 7021-8 ####[facility] LABORATORYCLIA [id number] [address] [facility] Differential cell count method Nom (Bld) Manual Normal [facility] Comment on above: Order Comment: Speci men Type: BLOOD SPECIMENOrdering Facility: [facility] Address: [address] [place] [address] Performed By: #### 5 7021-8 ####[facility] LABORATORYCLIA [id number] [address] [place] Eosinophils (Bld) [#/Vol] 0.00 10*3/uL Normal <0.46 [facility] Comment on above: Order Comment: Speci men Type: BLOOD SPECIMENOrdering Facility: [facility] Address: [address] [place] [address] Performed By: #### 5 7021-8 ####[facility] LABORATORYCLIA [id number] [address] Eosinophils/100 WBC (Bld) 0.0 % Normal [facility] Comment on above: Order Comment: Speci men Type: BLOOD SPECIMENOrdering Facility: [facility] Address: [address] [place] [address] Performed By: #### 5 7021-8 ####[facility] LABORATORYCLIA [id number] [address] [place] Erythrocyte distribution width (RBC) [Ratio] 16.2 % High 11.5-15.0 [facility] Comment on above: Order Comment: Speci men Type: BLOOD SPECIMENOrdering Facility: [facility] Address: [address] [place] [address] Performed By: #### 5 7021-8 ####[facility] LABORATORYCLIA [id number] [address] [place] Hematocrit (Bld) [Volume fraction] 31.8 % Low 36.0-46.0 [facility] Comment on above: Order Comment: Speci men Type: BLOOD SPECIMENOrdering Facility: [facility] Address: [address] [place] [address] Performed By: #### 5 7021-8 ####[facility] LABORATORYCLIA [id number] [place] [address] [place] Hemoglobin (Bld) [Mass/Vol] 9.2 g/dL Low 11.5-15.5 [facility] Comment on above: Order Comment: Speci men Type: BLOOD SPECIMENOrdering Facility: [facility] Address: [address] [place] [address] Performed By: #### 5 7021-8 ####[facility] LABORATORYCLIA [id number] [address] [place] Lymphocytes (Bld) [#/Vol] 1.41 10*3/uL Normal 1.00-4.00 [facility] Comment on above: Order Comment: Speci men Type: BLOOD SPECIMENOrdering Facility: [facility] Address: [address] [place] [address] Performed By: #### 5 7021-8 ####[facility] LABORATORYCLIA [id number] [address] [place] Lymphocytes/100 WBC (Bld) 19.0 % Normal [facility] Comment on above: Order Comment: Speci men Type: BLOOD SPECIMENOrdering Facility: [facility] Address: [address] [place] [address] Performed By: #### 5 7021-8 ####[facility] LABORATORYCLIA [id number] [address] [place] MCH (RBC) [Entitic mass] 28.0 pg Normal 26.0-34.0 [facility] Comment on above: Order Comment: Speci men Type: BLOOD SPECIMENOrdering Facility: [facility] Address: [address] [place] [address] Performed By: #### 5 7021-8 ####[facility] LABORATORYCLIA [id number] [address] [place] [facility] MCHC (RBC) [Mass/Vol] 28.9 g/dL Low 30.5-36.0 [facility] Comment on above: Order Comment: Speci men Type: BLOOD SPECIMENOrdering Facility: [facility] Address: [address] [place] [address] Performed By: #### 5 7021-8 ####[facility] LABORATORYCLIA [id number] [address] [place] MCV (RBC) [Entitic vol] 96.7 fL Normal 80.0-100.0 [facility] Comment on above: Order Comment: Speci men Type: BLOOD SPECIMENOrdering Facility: [facility] Address: [address] [place] [address] Performed By: #### 5 7021-8 ####[facility] LABORATORYCLIA [id number] [address] Metamyelocytes/100 WBC (Bld) 3.0 % Normal [facility] Comment on above: Order Comment: Speci men Type: BLOOD SPECIMENOrdering Facility: [facility] Address: [address] [place] [address] Performed By: #### 5 7021-8 ####[facility] LABORATORYCLIA [id number] [address] [place] [facility] Monocytes (Bld) [#/Vol] 0.44 10*3/uL Normal <0.87 [facility] Comment on above: Order Comment: Speci men Type: BLOOD SPECIMENOrdering Facility: [facility] Address: [address] [place] [address] Performed By: #### 5 7021-8 ####[facility] LABORATORYCLIA [id number] [address] Monocytes/100 WBC (Bld) 6.0 % Normal A [facility] Comment on above: Order Comment: Speci men Type: BLOOD SPECIMENOrdering Facility: [facility] Address: [address] [place] [address] Performed By: #### 5 7021-8 ####[facility] LABORATORYCLIA [id number] [address] [place] MYELO% 1.0 % Normal [facility] Comment on above: Order Comment: Speci men Type: BLOOD SPECIMENOrdering Facility: [facility] Address: [address] [place] [address] Performed By: #### 5 7021-8 ####[facility] LABORATORYCLIA [id number] [address] [place] Neutrophils (Bld) [#/Vol] 5.25 10*3/uL Normal 1.45-7.50 [facility] Comment on above: Order Comment: Speci men Type: BLOOD SPECIMENOrdering Facility: [facility] Address: [address] [place] [address] Performed By: #### 5 7021-8 ####[facility] LABORATORYCLIA [id number] [address] [place] Neutrophils/100 WBC (Bld) 71.0 % Normal [facility] Comment on above: Order Comment: Speci men Type: BLOOD SPECIMENOrdering Facility: [facility] Address: [address] [place] [address] Performed By: #### 5 7021-8 ####[facility] [facility] LABORATORYCLIA [id number] [address] [place] Nucleated RBC (Bld) [#/Vol] 10*3/uL Normal <0.01 [facility] Comment on above: Order Comment: Speci men Type: BLOOD SPECIMENOrdering Facility: [facility] Address: [address] [place] [address] Performed By: #### 5 7021-8 ####[facility] [facility] LABORATORYCLIA [id number] [place] [address] [place] Nucleated RBC/100 WBC (Bld) [Ratio] 0.0 /100 WBC Normal [facility] Comment on above: Order Comment: Speci men Type: BLOOD SPECIMENOrdering Facility: [facility] Address: [address] [place] [address] Performed By: #### 5 7021-8 ####[facility] LABORATORYCLIA [id number] [address] [place] Ovalocytes LM Ql (Bld) Few Normal [facility] Comment on above: Order Comment: Speci men Type: BLOOD SPECIMENOrdering Facility: [facility] Address: [address] [place] [address] Performed By: #### 5 7021-8 ####[facility] LABORATORYCLIA [id number] [address] [place] Platelet mean volume (Bld) [Entitic vol] 8.5 fL Low 9.0-12.7 [facility] Comment on above: Order Comment: Speci men Type: BLOOD SPECIMENOrdering Facility: [facility] [facility] Address: [address] [place] [address] Performed By: #### 5 7021-8 ####[facility] LABORATORYCLIA [id number] [address] [place] Platelets (Bld) [#/Vol] 343 10*3/uL Normal 150-400 [facility] Comment on above: Order Comment: Speci men Type: BLOOD SPECIMENOrdering Facility: [facility] Address: [address] [place] [address] Performed By: #### 5 7021-8 ####[facility] LABORATORYCLIA [id number] [address] [place] Platelets Estimate (Bld) [#/Vol] Adequate Normal [facility] Comment on above: Order Comment: Speci men Type: BLOOD SPECIMENOrdering Facility: [facility] Address: [address] [place] [address] Performed By: #### 5 7021-8 ####[facility] LABORATORYCLIA [id number] [address] Polychromasia LM Ql (Bld) Slight Normal [facility] Comment on above: Order Comment: Speci men Type: BLOOD SPECIMENOrdering Facility: [facility] Address: [address] [address] Performed By: #### 5 7021-8 ####[facility]ORATORYCLIA [id number] [address] [facility] RBC (Bld) [#/Vol] 3.29 10*6/uL Low 3.90-5.20 [facility] Comment on above: Order Comment: Speci men Type: BLOOD SPECIMENOrdering Facility: [facility] Address: [address] [place] [address] Performed By: #### 5 7021-8 ####[facility]ORATORYCLIA [id number] [address] RBC FRAGMENTS Few Abnormal None Seen [facility] Comment on above: Order Comment: Speci men Type: BLOOD SPECIMENOrdering Facility: [facility] Address: [address] [place] [address] Performed By: #### 5 7021-8 ####[facility]ORATORYCLIA [id number] [address] RED CELL MORPH Reviewed: see result s of individual morphologies Normal [facility] Comment on above: Order Comment: Speci men Type: BLOOD SPECIMENOrdering Facility: [facility] Address: [address] [address] Performed By: #### 5 7021-8 ####[facility]ORATORYCLIA [id number] [address] WBC (Bld) [#/Vol] 7.40 10*3/uL Normal 3.70-11.00 [facility] Comment on above: Order Comment: Speci men Type: BLOOD SPECIMENOrdering Facility: [facility] Address: [address] [address] Performed By: #### 5 7021-8 ####[facility]ATORYCLIA [id number] [address] [place] WBC Left Shift Ql (Bld) Present Normal [facility] Comment on above: Order Comment: Speci men Type: BLOOD SPECIMENOrdering Facility: [facility] Address: [address] [place] [address] Performed By: #### 5 7021-8 ####[facility]ORATORYCLIA [id number] [address] OF [place] Comprehensive metabolic 2000 panelon 01-02-2023 Albumin [Mass/Vol] 3.2 g/dL Low 3.9-4.9 [facility] Comment on above: Order Comment: Speci men Type: BLOOD SPECIMENOrdering Facility: [facility] Address: [address] [place] [address] Performed By: #### 2 4323-8, 29859-7 ####[facility]ATORYCLIA [id number] [address] [place] ALP [Catalytic activity/Vol] 63 U/L Normal 34-123 [facility] Comment on above: Order Comment: Speci men Type: BLOOD SPECIMENOrdering Facility: [facility] Address: [address] [place] [address] Performed By: #### 2 4323-8, 16035-6 ####[facility]ATORYCLIA [id number] [address] [place] ALT With P-5'-P [Catalytic activity/Vol] 17 U/L Normal 7-38 [facility] Comment on above: Order Comment: Speci men Type: BLOOD SPECIMENOrdering Facility: [facility] Address: [address] [place] [address] Performed By: #### 2 4323-8, 57908-5 ####[facility]ORATORYCLIA [id number] [address] OF [place] Anion gap [Moles/Vol] 10 mmol/L Normal 9-18 [facility] Comment on above: Order Comment: Speci men Type: BLOOD SPECIMENOrdering Facility: [facility] Address: [address] [address] Performed By: #### 2 4323-8, 43392-3 ####[facility]ATORYCLIA [id number] [place] [address] [place] AST With P-5'-P [Catalytic activity/Vol] 10 U/L Low 13-35 [facility] Comment on above: Order Comment: Speci men Type: BLOOD SPECIMENOrdering Facility: [facility] Address: [address] [place] [address] Performed By: #### 2 4323-8, 30175-6 ####[facility]ORATORYCLIA [id number] [place] [address] [place] Bilirubin [Mass/Vol] mg/dL Low 0.2-1.3 [facility] Comment on above: Order Comment: Speci men Type: BLOOD SPECIMENOrdering Facility: [facility] Address: [address] [place] [address] Performed By: #### 2 4323-8, 82037-5 ####[facility]ORATORYCLIA [id number] [place] [address] [place] Calcium [Mass/Vol] 8.9 mg/dL Normal 8.5-10.2 [facility] Comment on above: Order Comment: Speci men Type: BLOOD SPECIMENOrdering Facility: [facility] Address: [address] [place] [address] Performed By: #### 2 4323-8, 60583-2 ####[facility]ORATORYCLIA [id number] [place] [address] [place] Chloride [Moles/Vol] 96 mmol/L Low 97-105 [facility] Comment on above: Order Comment: Speci men Type: BLOOD SPECIMENOrdering Facility: [facility] Address: [address] [place] [address] Performed By: #### 2 4323-8, 73749-7 ####[facility]ATORYCLIA [id number] [place] [address] [place] CO2 [Moles/Vol] 32 mmol/L High 22-30 [facility] Comment on above: Order Comment: Speci men Type: BLOOD SPECIMENOrdering Facility: [facility] Address: [address] [address] Performed By: #### 2 4323-8, 50272-5 ####[facility]ORATORYCLIA [id number] [address] [id number] [place] Creatinine [Mass/Vol] 1.60 mg/dL High 0.58-0.96 [facility] Comment on above: Order Comment: Speci men Type: BLOOD SPECIMENOrdering Facility: [facility] Address: [address] [place] [address] Performed By: #### 2 4323-8, 84707-0 ####[facility]ATORYCLIA [id number] [address] ESTIMATED GLOMERULAR FILTRATION RATE 36 mL/min/1.73m??? Low >=60 [facility] Comment on above: Order Comment: Speci men Type: BLOOD SPECIMENOrdering Facility: [facility] Address: [address] [place] [address] Result Comment: Petra mated Glomerular Filtration Rate [...] actual GFR. Performed By: #### 2 4323-8, 43121-4 ####[facility]ATORYCLIA [id number] [address] [place] Glucose [Mass/Vol] 379 mg/dL High 74-99 [facility] Comment on above: Order Comment: Speci men Type: BLOOD SPECIMENOrdering Facility: [facility] Address: [address] [place] [address] Result Comment: The [place] [employer] Association (ADA) provides guidance for cutoff [...] Standards of Medical Care in Diabetes 2016, [place] [employer]. Diabetes Care. 2016.39(Suppl 1). Performed By: #### 2 4323-8, 29439-6 ####[facility]ATORYCLIA [id number] [place] [address] [place] Potassium [Moles/Vol] 5.0 mmol/L Normal 3.7-5.1 [facility] Comment on above: Order Comment: Speci men Type: BLOOD SPECIMENOrdering Facility: [facility] Address: [address] [place] [address] Performed By: #### 2 4323-8, 50003-5 ####[facility]ATORYCLIA [id number] [place] [address] [place] Protein [Mass/Vol] 5.3 g/dL Low 6.3-8.0 [facility] Comment on above: Order Comment: Luhi men Type: BLOOD SPECIMENOrdering Facility: [facility] Address: [address] [place] [address] Performed By: #### 2 4323-8, 35360-1 ####[facility]ORATORYCLIA [id number] [place] [address] [place] Sodium [Moles/Vol] 138 mmol/L Normal 136-144 [facility] Comment on above: Order Comment: Speci men Type: BLOOD SPECIMENOrdering Facility: [facility] Address: [address] [address] Performed By: #### 2 4323-8, 66123-9 ####[facility]ATORYCLIA [id number] [place] [address] [place] Urea nitrogen [Mass/Vol] 32 mg/dL High 7-21 [facility] Comment on above: Order Comment: Speci men Type: BLOOD SPECIMENOrdering Facility: [facility] Address: [place] [address] Performed By: #### 2 4323-8, 72114-0 ####[facility]ORATORYCLIA [id number] [address] [place] Determination of erythrocyte mean corpuscular volume (MCV)Ordered By: Lucy Quick on 01-02-2023 MCV (RBC) [Entitic vol] 96.2 fL 81-99 [facility] ED NOTEon 01-02-2023 ED NOTE HNO ID: [id number] Author: Harsha Morin RN Service: Emergency Medicine Author Type: Registered Nurse Type: ED Notes Filed: 01/02/2023 9:29 PM Note Text: Report called back to [place] of Jessica CRANE Normal [facility] ED NOTE HNO ID: [id number] Author: Sandy Steve RN Service: Emergency Medicine Author Type: Registered Nurse Type: ED Notes Filed: 01/02/2023 5:13 PM Note Text: 800 mL urine output Normal [facility] ED NOTE HNO ID: [id number] Author: Sandy Steve RN Service: Emergency Medicine Author Type: Registered Nurse Type: ED Notes Filed: 01/02/2023 3:50 PM Note Text: Per EMS, pt reports that she has had swelling for the past week. Normal [facility] ED NOTE HNO ID: [id number] Author: Roseann Reyes, Medic Service: ? Author Type: Cash Sales Audit Clerk and Negotiator Type: ED Notes Filed: 01/02/2023 3:31 PM Note Text: Bed: 36-ED Expected date: Expected time: Means of arrival: Comments: Physicians exac chf/swelling Normal [facility] ED PROV NOTEon 01-02-2023 ED PROV NOTE Normal [facility] HIGH SENSITIVITY TROPONIN T (INITIAL)on 01-02-2023 HIGH SENSITIVITY MARIE 61 ng/L High <12 [facility] Comment on above: Order Comment: Speci men Type: BLOOD SPECIMENOrdering Facility: [facility] Address: [address] [place] [address] Result Comment: When assessing risk for acute [...] 30 day MACE. Performed By: #### L [id number] ####[facility]ORATORYCLIA [id number] [place] [address] [place] HIGH SENSITIVITY TROPONIN T (SECOND)on 01-02-2023 HIGH SENSITIVITY MARIE 59 ng/L High <12 [facility] Comment on above: Order Comment: Scott seals Type: BLOOD SPECIMENOrdering Facility: [facility] Address: [address] [place] [address] Result Comment: When assessing risk for acute [...] 30 day MACE. Performed By: #### L [id number] ####[facility]ORATORYCLIA [id number] [place] [address] [place] Hematocrit Auto (Bld) [Volum e fraction]Ordered By: Lucy Quick on 01-02-2023 Hematocrit (Bld) [Volume fraction] 30.3 % 37-47 [facility] - Hematology and Cell countsOrdered By: Lucy Quick on 01-02-2023 Erythrocyte distribution width (RBC) [Entitic vol] 57.6 fL 35.1-43.9 [facility] Erythrocyte distribution width (RBC) [Ratio] 16.4 % 11.6-14.6 [facility] MCH (RBC) [Entitic mass] 29.8 pg 27.0-32.0 [facility] MCHC Auto (RBC) [Mass/Vol]Or dered By: Lucy Quick on 01-02-2023 MCHC (RBC) [Mass/Vol] 31.0 g/dL 32-36 [facility] NT-proBNP SerPl-mCncon 01-02 Natriuretic peptide.B prohormone N-Terminal [Mass/Vol] 402 pg/mL High <125 [facility] Comment on above: Order Comment: Speci men Type: BLOOD SPECIMENOrdering Facility: [facility] Address: [address] [place], [place] [address] [id number] Performed By: #### 2 4323-8, 88667-3 ####[facility]ORATORYCLIA [id number] [address] [facility] Platelets bldOrdered By: Josee Quick on 01-02-2023 Platelets (Bld) [#/Vol] 286 10*3/uL 150-450 [facility] SARS-CoV-2 RNA Resp Ql IGGY+p robeon 01-02-2023 SARS-CoV-2 (COVID-19) RNA IGGY+probe Ql (Resp) COVID 19 RESULT: Not detected The method used is RT-PCR or an equivalent NAAT method. Reference Range(the expected result in uninfected individuals): Not detected Normal [facility] Comment on above: Performed By: #### 9 4500-6 ####[facility]ATORYCLIA [id number] [address] XR CHEST 1V FRONTALon 2022 XR CHEST 1V FRONTAL Normal [facility] Basophil percentageOrdered B y: Lucy Quick on 12-25-2022 Basophil percentage 0 SEEN /hpf 0-5 [facility] Bilirubin Test strip Ql (U)O rdered By: Lucy Quick on 12-25-2022 Bilirubin Ql (U) Negative Negative [facility] Ketones Test strip Ql (U)Ord ered By: Lucy Quick on 12-25-2022 Ketones Ql (U) Negative Negative [facility] Mucus LM Ql (Urine sed)Order ed By: Lucy Quick on 12-25-2022 Mucus Ql (Urine sed) 0 SEEN /hpf [facility] Nitrite Test strip Ql (U)Ord ered By: Lucy Quick on 12-25-2022 Nitrite Ql (U) Negative Negative [facility] Protein Test strip Ql (U)Ord ered By: Lucy Quick on 12-25-2022 Protein Ql (U) 15 mg/dl Negative [facility] Squamous epithelial cells de tection in urine sediment by light microscopyOrdered By: Lucy Quick on 12-25-2022 Epithelial cells.squamous LM Ql (Urine sed) 0 SEEN /hpf 5-10 [facility] Urine blood detectionOrdered By: Lucy Quick on 12-25-2022 RBC Ql (U) Negative Negative [facility] RBC Ql (U) 0 SEEN /hpf 0-5 [facility] Urine clarityOrdered By: Josee Quick on 12-25-2022 Clarity (U) Sl. Cloudy Clear [facility] Urine color determinationOrd ered By: Lucy Quick on 12-25-2022 Color (U) Yellow Yellow [facility] Urine glucose detectionOrder ed By: Lucy Quick on 12-25-2022 Glucose Ql (U) Normal mg/dl Normal [facility] Urine leukocyte esterase det ection by dipstickOrdered By: Lucy Quick on 12-25-2022 Leukocyte esterase Test strip Ql (U) Negative Negative [facility] Urine pHOrdered By: Lucy mcguire on 12-25-2022 pH (U) 6.0 [pH] 5.0 - 8.0 [facility] Urine sediment bacteria coun t by microscopy (number/high power field)Ordered By: Lucy Quick on 12-25-2022 Bacteria LM.HPF (Urine sed) [#/Area] 0 /[HPF] None Seen [facility] Urine specific gravity measu rementOrdered By: Lucy Quick on 12-25-2022 Specific gravity (U) [Rel density] 1.010 1.002-1.030 [facility] Urobilinogen Auto test strip Ql (U)Ordered By: Lucy Quick on 12-25-2022 Urobilinogen Ql (U) Normal mg/dl Normal [facility] 12-22-2022 CNPN Normal [facility] CNPNon 12-19-2022 CNPN Normal [facility] Basophil percentageOrdered B y: Lucy Quick on 12-05-2022 Chloride [Moles/Vol] 107 mmol/L 98-107 [facility] Glucose [Mass/Vol] 133 mg/dL 74-106 [facility] Comment on above: Fasting Glucose resu lt greater than or equal to 126 mg/dL suggests DIABETES MELLITUS per A.D.A. criteria. Potassium [Moles/Vol] 4.4 mmol/L 3.5-5.1 [facility] Sodium [Moles/Vol] 143 mmol/L 136-145 [facility] WBC (Bld) [#/Vol] 9.9 10*3/uL 4.4-11.0 [facility] Blood erythrocytes count (nu mber/volume)Ordered By: Lucy Quick on 12-05-2022 RBC (Bld) [#/Vol] 3.45 10*6/uL 4.2-5.4 [facility] Blood hemoglobin measurement (mass/volume)Ordered By: Lucy Quick on 12-05-2022 Hemoglobin (Bld) [Mass/Vol] 10.1 g/dL 12.0-15.0 [facility] Blood platelet mean volumeOr dered By: Lucy Quick on 12-05-2022 Platelet mean volume (Bld) [Entitic vol] 8.4 fL 6.2-12.0 [facility] CNPTOUTREACHon 12-05-2022 CNPTOUTREACH Normal [facility] Determination of erythrocyte mean corpuscular volume (MCV)Ordered By: Lucy Quick on 12-05-2022 MCV (RBC) [Entitic vol] 95.4 fL 81-99 [facility] Hematocrit Auto (Bld) [Volum e fraction]Ordered By: Lucy Quick on 12-05-2022 Hematocrit (Bld) [Volume fraction] 32.9 % 37-47 [facility] Laboratory - Chemistry and C hemistry - challengeOrdered By: Lucy Quick on 12-05-2022 CO2 [Moles/Vol] 31.0 mmol/L 21.0-32.0 [facility] Urea nitrogen/Creatinine [Mass ratio] 33.8 mg/mg 10-20 [facility] - Hematology and Cell countsOrdered By: Lucy Quick on 12-05-2022 Erythrocyte distribution width (RBC) [Entitic vol] 57.4 fL 35.1-43.9 [facility] Erythrocyte distribution width (RBC) [Ratio] 16.4 % 11.6-14.6 [facility] MCH (RBC) [Entitic mass] 29.3 pg 27.0-32.0 [facility] MCHC Auto (RBC) [Mass/Vol]Or dered By: Lucy Quick on 12-05-2022 MCHC (RBC) [Mass/Vol] 30.7 g/dL 32-36 [facility] No Panel InformationOrdered By: Lucy Quick on 12-05-2022 Estimated GFR (MDRD) Amer 48 mL/min >60 [facility] Comment on above: GFR Calc Estimated GFR (MDRD) Non-Af Amer 39 mL/min >60 [facility] Comment on above: Non- GFR Calc Platelets bldOrdered By: Josee Quick on 12-05-2022 Platelets (Bld) [#/Vol] 299 10*3/uL 150-450 [facility] Serum or plasma calcium catracho urement (mass/volume)Ordered By: Lucy Quick on 12-05-2022 Calcium [Mass/Vol] 8.2 mg/dL 8.5-10.1 [facility] Serum or plasma creatinine m easurement (mass/volume)Ordered By: Lucy Quick on 12-05-2022 Creatinine [Mass/Vol] 1.42 mg/dL 0.55-1.02 [facility] Comment on above: The validity of the calculated GFR & GFRAA in patients over 70 years has not been determined. Clinical correlation is essential. Serum or plasma urea nitroge n measurement (mass/volume)Ordered By: Lucy Quick on 12-05-2022 Urea nitrogen [Mass/Vol] 48 mg/dL 7-18 [facility] Thin prep Papanicolaou smear with manual screeningOrdered By: Lucy Quick on 12-05-2022 Thin prep Papanicolaou smear with manual screening 5 5-15 [facility] Culture, urineOrdered By: Jemal Campos on 12-01-2022 Bacteria identified Cx Nom (U) Meth. resistant Staph. aureus [facility] Bacteria identified Cx Nom (U) Aerococcus viridans. [facility] Basophil percentageOrdered B y: Lucy Quick on 11-28-2022 WBC (Bld) [#/Vol] 12.5 10*3/uL 4.4-11.0 [facility] Bilirubin [Mass/Vol] 0.30 mg/dL 0.20-1.00 [facility] Comment on above: For patients on eltr ombopag therapy, use of Dimension Gibson TBIL is not recommended. Chloride [Moles/Vol] 107 mmol/L 98-107 [facility] Glucose [Mass/Vol] 219 mg/dL 74-106 [facility] Comment on above: Glucose result great er than or equal to 200 mg/dLsuggests DIABETES MELLITUS per A.D.A. criteria. Potassium [Moles/Vol] 4.7 mmol/L 3.5-5.1 [facility] Protein [Mass/Vol] 5.8 g/dL 6.4-8.2 [facility] Sodium [Moles/Vol] 142 mmol/L 136-145 [facility] Blood erythrocytes count (nu mber/volume)Ordered By: Lucy Quick on 11-28-2022 RBC (Bld) [#/Vol] 3.73 10*6/uL 4.2-5.4 [facility] Blood hemoglobin measurement (mass/volume)Ordered By: Lucy Quick on 11-28-2022 Hemoglobin (Bld) [Mass/Vol] 10.7 g/dL 12.0-15.0 [facility] Blood platelet mean volumeOr dered By: Lucy Quick on 11-28-2022 Platelet mean volume (Bld) [Entitic vol] 9.8 fL 6.2-12.0 [facility] Determination of erythrocyte mean corpuscular volume (MCV)Ordered By: Lucy Quick on 11-28-2022 MCV (RBC) [Entitic vol] 88.7 fL 81-99 [facility] Hematocrit Auto (Bld) [Volum e fraction]Ordered By: Lucy Quick on 11-28-2022 Hematocrit (Bld) [Volume fraction] 33.1 % 37-47 [facility] Laboratory - Chemistry and C hemistry - challengeOrdered By: Lucy Quick on 11-28-2022 ALP [Catalytic activity/Vol] 59 U/L 45-117 [facility] ALT [Catalytic activity/Vol] 23 U/L 13-56 [facility] CO2 [Moles/Vol] 27.0 mmol/L 21.0-32.0 [facility] Globulin (S) [Mass/Vol] 3.3 g/dL 2.2-4.2 [facility] Urea nitrogen/Creatinine [Mass ratio] 33.6 mg/mg 10-20 [facility] Laboratory - Hematology and Cell countsOrdered By: Lucy Quick on 11-28-2022 Erythrocyte distribution width (RBC) [Entitic vol] 49.4 fL 35.1-43.9 [facility] Erythrocyte distribution width (RBC) [Ratio] 15.2 % 11.6-14.6 [facility] MCH (RBC) [Entitic mass] 28.7 pg 27.0-32.0 [facility] MCHC Auto (RBC) [Mass/Vol]Or dered By: Lucy Quick on 11-28-2022 MCHC (RBC) [Mass/Vol] 32.3 g/dL 32-36 [facility] No Panel InformationOrdered By: Lucy Quick on 11-28-2022 Estimated GFR (MDRD) Amer 49 mL/min >60 [facility] Comment on above: GFR Calc Estimated GFR (MDRD) Non-Af Amer 40 mL/min >60 [facility] Comment on above: Non- GFR Calc Thyroid Stimulating Hormone (TSH) 1.48 uIU/mL 0.358-3.74 [facility] Platelets bldOrdered By: Josee Quick on 11-28-2022 Platelets (Bld) [#/Vol] 264 10*3/uL 150-450 [facility] Serum or plasma albumin catracho urement (mass/volume)Ordered By: Lucy Quick on 11-28-2022 Albumin [Mass/Vol] 2.5 g/dL 3.2-5.0 [facility] Serum or plasma albumin/glob ulin mass ratioOrdered By: Lucy Quick on 11-28-2022 Albumin/Globulin [Mass ratio] 0.8 {ratio} 0.9-2.4 [facility] Serum or plasma calcium catracho urement (mass/volume)Ordered By: Lucy Quick on 11-28-2022 Calcium [Mass/Vol] 8.4 mg/dL 8.5-10.1 [facility] Serum or plasma creatinine m easurement (mass/volume)Ordered By: Lucy Quick on 11-28-2022 Creatinine [Mass/Vol] 1.40 mg/dL 0.55-1.02 [facility] Comment on above: The validity of the calculated GFR & GFRAA in patients over 70 years has not been determined. Clinical correlation is essential. Serum or plasma urea nitroge n measurement (mass/volume)Ordered By: uLcy Quick on 11-28-2022 Urea nitrogen [Mass/Vol] 47 mg/dL 7-18 [facility] Thin prep Papanicolaou smear with manual screeningOrdered By: Lucy Quick on 11-28-2022 Thin prep Papanicolaou smear with manual screening 12 U/L 15-37 [facility] Thin prep Papanicolaou smear with manual screening 8 5-15 [facility] Basophil percentageOrdered B y: Lucy Quick on 11-27-2022 Basophil percentage 0 SEEN /hpf 0-5 [facility] Bilirubin Test strip Ql (U)O rdered By: Lucy Quick on 11-27-2022 Bilirubin Ql (U) Negative Negative [facility] Ketones Test strip Ql (U)Ord ered By: Lucy Quick on 11-27-2022 Ketones Ql (U) Negative Negative [facility] Mucus LM Ql (Urine sed)Order ed By: Lucy Quick on 11-27-2022 Mucus Ql (Urine sed) 0 SEEN /hpf [facility] Nitrite Test strip Ql (U)Ord ered By: Lucy Quick on 11-27-2022 Nitrite Ql (U) Negative Negative [facility] Protein Test strip Ql (U)Ord ered By: Lucy Quick on 11-27-2022 Protein Ql (U) 15 mg/dl Negative [facility] Squamous epithelial cells de tection in urine sediment by light microscopyOrdered By: Lucy Quick on 11-27-2022 Epithelial cells.squamous LM Ql (Urine sed) 0 SEEN /hpf 5-10 [facility] Urine blood detectionOrdered By: Lucy Quick on 11-27-2022 RBC Ql (U) Negative Negative [facility] RBC Ql (U) 0 SEEN /hpf 0-5 [facility] Urine clarityOrdered By: Josee Quick on 11-27-2022 Clarity (U) Clear Clear [facility] Urine color determinationOrd ered By: Lucy Quick on 11-27-2022 Color (U) Yellow Yellow [facility] Urine glucose detectionOrder ed By: Lucy Quick on 11-27-2022 Glucose Ql (U) 250 mg/dl Normal [facility] Urine leukocyte esterase det ection by dipstickOrdered By: Lucy Quick on 11-27-2022 Leukocyte esterase Test strip Ql (U) Negative Negative [facility] Urine pHOrdered By: Lucy mcguire on 11-27-2022 pH (U) 6.0 [pH] 5.0 - 8.0 [facility] Urine sediment bacteria coun t by microscopy (number/high power field)Ordered By: Lucy Quick on 11-27-2022 Bacteria LM.HPF (Urine sed) [#/Area] 0 /[HPF] None Seen [facility] Urine specific gravity measu rementOrdered By: Lucy Quick on 11-27-2022 Specific gravity (U) [Rel density] 1.015 1.002-1.030 [facility] Urobilinogen Auto test strip Ql (U)Ordered By: Lucy Quick on 11-27-2022 Urobilinogen Ql (U) Normal mg/dl Normal [facility] Basophil percentageOrdered B y: Lucy Quick on 11-24-2022 WBC (Bld) [#/Vol] 16.9 10*3/uL 4.4-11.0 [facility] Blood erythrocytes count (nu mber/volume)Ordered By: Lucy Quick on 11-24-2022 RBC (Bld) [#/Vol] 3.44 10*6/uL 4.2-5.4 [facility] Blood hemoglobin measurement (mass/volume)Ordered By: Lucy Quick on 11-24-2022 Hemoglobin (Bld) [Mass/Vol] 10.1 g/dL 12.0-15.0 [facility] Blood platelet mean volumeOr dered By: Lucy Quick on 11-24-2022 Platelet mean volume (Bld) [Entitic vol] 9.3 fL 6.2-12.0 [facility] Determination of erythrocyte mean corpuscular volume (MCV)Ordered By: Lucy Quick on 11-24-2022 MCV (RBC) [Entitic vol] 91.6 fL 81-99 [facility] Hematocrit Auto (Bld) [Volum e fraction]Ordered By: Lucy Quick on 11-24-2022 Hematocrit (Bld) [Volume fraction] 31.5 % 37-47 [facility] Laboratory - Hematology and Cell countsOrdered By: Lucy Quick on 11-24-2022 Erythrocyte distribution width (RBC) [Entitic vol] 49.4 fL 35.1-43.9 [facility] Erythrocyte distribution width (RBC) [Ratio] 15.1 % 11.6-14.6 [facility] MCH (RBC) [Entitic mass] 29.4 pg 27.0-32.0 [facility] MCHC Auto (RBC) [Mass/Vol]Or dered By: Lucy Quick on 11-24-2022 MCHC (RBC) [Mass/Vol] 32.1 g/dL 32-36 [facility] Platelets bldOrdered By: Josee Quick on 11-24-2022 Platelets (Bld) [#/Vol] 289 10*3/uL 150-450 [facility] CNPNon 11-20-2022 CNPN Normal [facility] CNPTOUTREACHon 11-20-2022 CNPTOUTREACH Normal [facility] CASE MANAGEMon 11-17-2022 CASE MANAGEM Normal [facility] CNDSon 11-17-2022 CNDS Normal [facility] NUTRITIONon 11-17-2022 NUTRITION Normal [facility] SARS-CoV-2 RNA Resp Ql IGGY+p robeon 11-17-2022 SARS-CoV-2 (COVID-19) RNA IGGY+probe Ql (Resp) COVID 19 RESULT: SARS-CoV-2 (Agent of COVID-19) Not Detected by RT-PCR or equivalent method. This test has been authorized by FDA under an Emergency Use Authorization (EUA). Normal [facility] Comment on above: Performed By: #### 9 4500-6 ####[facility]ORATORYCLIA [id number] [address] CASE MANAGEMon 11-16-2022 CASE MANAGEM Normal [facility] THERAPY NTon 11-16-2022 THERAPY NT Normal [facility] THERAPY NT Normal [facility] CASE MANAGEMon 11-15-2022 CASE MANAGEM Normal [facility] NURSING PROGon 11-15-2022 NURSING PROG Normal [facility] CASE MANAGEMon 11-14-2022 CASE MANAGEM Normal [facility] THERAPY NTon 11-14-2022 THERAPY NT Normal [facility] THERAPY NT Normal [facility] THERAPY NT Normal [facility] TSH SerPl-aCncon 11-14-2022 TSH Qn 0.843 m[IU]/L Normal 0.270-4.200 [facility] Comment on above: Order Comment: Speci men Type: BLOOD SPECIMENOrdering Facility: [facility] Address: [address] [place] [address] Performed By: #### 3 016-3 ####[facility]ORATORYCLIA [id number] [address] CASE MANAGEMon 11-13-2022 CASE MANAGEM Normal [facility] CONSULTon 11-13-2022 CONSULT Normal [facility] NURSING PROGon 11-13-2022 NURSING PROG Normal [facility] NURSING PROG Normal [facility] CASE MANAGEMon 11-12-2022 CASE MANAGEM Normal [facility] NURSING PROGon 11-12-2022 NURSING PROG Normal [facility] NURSING PROG Normal [facility] NURSING PROG Normal [facility] CASE MGT INIT ASSESon 2022 CASE MGT INIT ASSES Normal [facility] NURSING PROGon 11-11-2022 NURSING PROG Normal [facility] NURSING PROG Normal [facility] NUTRITIONon 11-11-2022 NUTRITION Normal [facility] THERAPY NTon 11-11-2022 THERAPY NT Normal [facility] THERAPY NT Normal [facility] Urinalysis complete pnl Uron 11-11-2022 Urinalysis complete panel (U) Abnormal [facility] Comment on above: Order Comment: Speci men Type: URINE SPECIMENOrdering Facility: [facility] Address: [address] [place] [address] Performed By: #### 2 4356-8 ####[facility]ORATORYCLIA [id number] [place] [address] [place] Basic metabolic 2000 panelon 11-10-2022 Anion gap [Moles/Vol] 14 mmol/L Normal 9-18 [facility] Comment on above: Order Comment: Speci men Type: BLOOD SPECIMENOrdering Facility: [facility] Address: [address] [place] [address] Performed By: #### 2 4321-2, 02744-4 ####[facility]ATORYCLIA [id number] [place] [address] [place] Calcium [Mass/Vol] 8.7 mg/dL Normal 8.5-10.2 [facility] Comment on above: Order Comment: Speci men Type: BLOOD SPECIMENOrdering Facility: [facility] Address: [address] [place] [address] Performed By: #### 2 4321-2, 87296-8 ####[facility]ORATORYCLIA [id number] [place] [address] [place] Chloride [Moles/Vol] 94 mmol/L Low 97-105 [facility] Comment on above: Order Comment: Speci men Type: BLOOD SPECIMENOrdering Facility: [facility] Address: [address] [place] [address] Performed By: #### 2 4321-2, 84615-9 ####[facility]ATORYCLIA [id number] [place] [address] [place] CO2 [Moles/Vol] 26 mmol/L Normal 22-30 [facility] Comment on above: Order Comment: Speci men Type: BLOOD SPECIMENOrdering Facility: [facility] Address: [address] [address] Performed By: #### 2 4321-2, 92857-7 ####[facility] HOSPITALIA [id number] [address] [facility] Creatinine [Mass/Vol] 1.39 mg/dL High 0.58-0.96 [facility] Comment on above: Order Comment: Scott seals Type: BLOOD SPECIMENOrdering Facility: [facility] Address: [address] [address] Performed By: #### 2 4321-2, 94783-2 ####[facility] HOSPITALIA [id number] [address] ESTIMATED GLOMERULAR FILTRATION RATE 42 mL/min/1.73m??? Low >=60 [facility] Comment on above: Order Comment: Scott seals Type: BLOOD SPECIMENOrdering Facility: [facility] Address: [address] [place] [address] Result Comment: Petra mated Glomerular Filtration Rate [...] actual GFR. Performed By: #### 2 4321-2, 93141-1 ####[facility]ATORYCLIA [id number] [address] [place] Glucose [Mass/Vol] 317 mg/dL High 74-99 [facility] Comment on above: Order Comment: Scott seals Type: BLOOD SPECIMENOrdering Facility: [facility] Address: [address] [place] [address] Result Comment: The [place] [employer] (ADA) provides guidance for cutoff [...] Standards of Medical Care in Diabetes 2016, [place] [employer]. Diabetes Care. 2016.39(Suppl 1). Performed By: #### 2 4321-2, 91040-1 ####[facility]ATORYCLIA [id number] [place] [address] [place] Potassium [Moles/Vol] 4.3 mmol/L Normal 3.7-5.1 [facility] Comment on above: Order Comment: Scott seals Type: BLOOD SPECIMENOrdering Facility: [facility] Address: [address] [place] [address] Performed By: #### 2 432-2, 77924-5 ####[facility] CENTERCLIA [id number] [address] Sodium [Moles/Vol] 134 mmol/L Low 136-144 [facility] Comment on above: Order Comment: Scott seals Type: BLOOD SPECIMENOrdering Facility: [facility] Address: [address] [place] [address] Performed By: #### 2 432-2, 34856-5 ####[facility]ATORYCLIA [id number] [address] STATES [facility] Urea nitrogen [Mass/Vol] 31 mg/dL High 7-21 [facility] Comment on above: Order Comment: Scott seals Type: BLOOD SPECIMENOrdering Facility: [facility] Address: [address] [place] [address] Performed By: #### 2 432-2, 39825-0 ####[facility]ATORYCLIA [id number] [place] [address] [place] CBC W Auto Differential pane l (Bld)on 11-10-2022 Basophils (Bld) [#/Vol] 0.05 10*3/uL Normal <0.11 [facility] Comment on above: Order Comment: Speci men Type: BLOOD SPECIMENOrdering Facility: [facility] Address: [address] [place] [address] Result Comment: Diff erential confirmed by visual scan of peripheral blood smear slide. Performed By: #### 5 7021-8 ####[facility]ATORYCLIA [id number] [address] Basophils/100 WBC (Bld) 0.6 % Normal [facility] Comment on above: Order Comment: Speci men Type: BLOOD SPECIMENOrdering Facility: [facility] Address: [address] [place] [address] Performed By: #### 5 7021-8 ####[facility] LABORATORYCLIA [id number] [address] [place] Differential cell count method Nom (Bld) Auto Normal [facility] Comment on above: Order Comment: Speci men Type: BLOOD SPECIMENOrdering Facility: [facility] Address: [address] [place] [address] Performed By: #### 5 7021-8 ####[facility]ATORYCLIA [id number] [address] [place] Eosinophils (Bld) [#/Vol] 0.24 10*3/uL Normal <0.46 [facility] Comment on above: Order Comment: Speci men Type: BLOOD SPECIMENOrdering Facility: [facility] Address: [address] [place] [address] Performed By: #### 5 7021-8 ####[facility]ATORYCLIA [id number] [address] [place] Eosinophils/100 WBC (Bld) 3.0 % Normal [facility] Comment on above: Order Comment: Speci men Type: BLOOD SPECIMENOrdering Facility: [facility] Address: [address] [place] [address] Performed By: #### 5 7021-8 ####[facility]ATORYCLIA [id number] [address] [place] Erythrocyte distribution width (RBC) [Ratio] 14.2 % Normal 11.5-15.0 [facility] Comment on above: Order Comment: Speci men Type: BLOOD SPECIMENOrdering Facility: [facility] Address: [address] [place] [address] Performed By: #### 5 7021-8 ####[facility]ATORYCLIA [id number] [address] [place] Hematocrit (Bld) [Volume fraction] 30.3 % Low 36.0-46.0 [facility] Comment on above: Order Comment: Speci men Type: BLOOD SPECIMENOrdering Facility: [facility] Address: [address] [place] [address] Performed By: #### 5 7021-8 ####[facility]ORATORYCLIA [id number] [address] [place] Hemoglobin (Bld) [Mass/Vol] 9.3 g/dL Low 11.5-15.5 [facility] Comment on above: Order Comment: Speci men Type: BLOOD SPECIMENOrdering Facility: [facility] Address: [address] [place] [address] Performed By: #### 5 7021-8 ####[facility]ORATORYCLIA [id number] [address] [place] Immature granulocytes (Bld) [#/Vol] 0.29 10*3/uL High <0.10 [facility] Comment on above: Order Comment: Speci men Type: BLOOD SPECIMENOrdering Facility: [facility] Address: [address] [place] [address] Performed By: #### 5 7021-8 ####[facility]ATORYCLIA [id number] [address] Immature granulocytes/100 WBC (Bld) 3.6 % Normal [facility] Comment on above: Order Comment: Speci men Type: BLOOD SPECIMENOrdering Facility: [facility] Address: [address] [place], [place] [id number] Performed By: #### 5 7021-8 ####[facility]ORATORYCLIA [id number] [address] [place] Lymphocytes (Bld) [#/Vol] 1.61 10*3/uL Normal 1.00-4.00 [facility] Comment on above: Order Comment: Speci men Type: BLOOD SPECIMENOrdering Facility: [facility] Address: [address] [place] [address] Performed By: #### 5 7021-8 ####[facility]ATORYCLIA [id number] [address] Lymphocytes/100 WBC (Bld) 20.0 % Normal [facility] Comment on above: Order Comment: Speci men Type: BLOOD SPECIMENOrdering Facility: [facility] Address: [address] [place] [address] Performed By: #### 5 7021-8 ####[facility]ORATORYCLIA [id number] [address] STATES OF [facility] MCH (RBC) [Entitic mass] 29.4 pg Normal 26.0-34.0 [facility] Comment on above: Order Comment: Speci men Type: BLOOD SPECIMENOrdering Facility: [facility] Address: [address] [place] [address] Performed By: #### 5 7021-8 ####[facility]ATORYCLIA [id number] [address] [place] MCHC (RBC) [Mass/Vol] 30.7 g/dL Normal 30.5-36.0 [facility] Comment on above: Order Comment: Speci men Type: BLOOD SPECIMENOrdering Facility: [facility] Address: [address] [place] [address] Performed By: #### 5 7021-8 ####[facility]ATORYCLIA [id number] [address] [place] MCV (RBC) [Entitic vol] 95.9 fL Normal 80.0-100.0 [facility] Comment on above: Order Comment: Speci men Type: BLOOD SPECIMENOrdering Facility: [facility] Address: [address] [place] [address] Performed By: #### 5 7021-8 ####[facility] LABORATORYCLIA [id number] [place] [address] [place] Monocytes (Bld) [#/Vol] 1.01 10*3/uL High <0.87 [facility] Comment on above: Order Comment: Speci men Type: BLOOD SPECIMENOrdering Facility: [facility] Address: [address] [place] [address] Performed By: #### 5 7021-8 ####[facility]ATORYCLIA [id number] [address] [place] Monocytes/100 WBC (Bld) 12.6 % Normal [facility] Comment on above: Order Comment: Speci men Type: BLOOD SPECIMENOrdering Facility: [facility] Address: [address] [place] [address] Performed By: #### 5 7021-8 ####[facility]ATORYCLIA [id number] [address] [place] Neutrophils (Bld) [#/Vol] 4.84 10*3/uL Normal 1.45-7.50 [facility] Comment on above: Order Comment: Speci men Type: BLOOD SPECIMENOrdering Facility: [facility] Address: [address] [place] [address] Performed By: #### 5 7021-8 ####[facility]ATORYCLIA [id number] [address] [place] Neutrophils/100 WBC (Bld) 60.2 % Normal [facility] Comment on above: Order Comment: Speci men Type: BLOOD SPECIMENOrdering Facility: [facility] Address: [address] [place] [address] Performed By: #### 5 7021-8 ####[facility]ORYCLIA [id number] [address] [place] Nucleated RBC (Bld) [#/Vol] 0.03 10*3/uL High <0.01 [facility] Comment on above: Order Comment: Speci men Type: BLOOD SPECIMENOrdering Facility: [facility] Address: [address] [place] [address] Performed By: #### 5 7021-8 ####[facility]ATORYCLIA [id number] [address] [place] Nucleated RBC/100 WBC (Bld) [Ratio] 0.4 /100 WBC Normal [facility] Comment on above: Order Comment: Speci men Type: BLOOD SPECIMENOrdering Facility: [facility] Address: [address] [place] [address] Performed By: #### 5 7021-8 ####[facility]ATORYCLIA [id number] [address] [place] Platelet mean volume (Bld) [Entitic vol] 8.6 fL Low 9.0-12.7 [facility] Comment on above: Order Comment: Speci men Type: BLOOD SPECIMENOrdering Facility: [facility] Address: [address] [place] [address] Performed By: #### 5 7021-8 ####[facility]ORYCLIA [id number] [address] [place] Platelets (Bld) [#/Vol] 389 10*3/uL Normal 150-400 [facility] Comment on above: Order Comment: Speci men Type: BLOOD SPECIMENOrdering Facility: [facility] Address: [address] [address] Performed By: #### 5 7021-8 ####[facility]ATORYCLIA [id number] [address] [place] RBC (Bld) [#/Vol] 3.16 10*6/uL Low 3.90-5.20 [facility] Comment on above: Order Comment: Speci men Type: BLOOD SPECIMENOrdering Facility: [facility] Address: [address] [place], [place] [phone] Performed By: #### 5 7021-8 ####[facility]ATORYCLIA [id number] [place] [address] [facility] WBC (Bld) [#/Vol] 8.04 10*3/uL Normal 3.70-11.00 [facility] Comment on above: Order Comment: Speci men Type: BLOOD SPECIMENOrdering Facility: [facility] Address: [address] [place] [address] Performed By: #### 5 7021-8 ####[facility]ATORYCLIA [id number] [place] [address] [facility] CONSULT PROGon 11-10-2022 CONSULT PROG Normal [facility] ECG COMPLETEon 11-10-2022 ECG COMPLETE Normal [facility] ED NOTEon 11-10-2022 ED NOTE HNO ID: [id number] Author: Akua Loyola RN Service: Emergency Medicine Author Type: Registered Nurse Type: ED Notes Filed: 11/10/2022 2:22 PM Note Text: Attempted report. RN unavailable. Normal [facility] ED NOTE Normal [facility] ED NOTE HNO ID: [id number] Author: Nawaf Davis RN Service: Emergency Medicine Author Type: Registered Nurse Type: ED Notes Filed: 11/10/2022 3:03 AM Note Text: Spoke to MD about 3rd Troponin. Told not to worry about drawing it at this moment [facility] ED NOTE HNO ID: [id number] Author: Nawaf Davis RN Service: Emergency Medicine Author Type: Registered Nurse Type: ED Notes Filed: 11/10/2022 12:05 AM Note Text: MD made aware of need for US IV Normal [facility] ED NOTE HNO ID: [id number] Author: Nawaf Davis RN Service: Emergency Medicine Author Type: Registered Nurse Type: ED Notes Filed: 11/09/2022 10:25 PM Note Text: Dressing applied to Coccyx at this time Normal [facility] ED NOTE HNO ID: [id number] Author: Atilio Acosta RN Service: ? Author Type: Registered Nurse Type: ED Notes Filed: 11/09/2022 10:11 PM Note Text: Bed: 20-ED Expected date: Expected time: Means of arrival: Comments: squad Normal [facility] ED PROV NOTEon 11-10-2022 ED PROV NOTE Normal [facility] FLUABV+SARS-CoV-2+RSV Pnl Re sp IGGY+probeon 11-10-2022 FLUABV+SARS-CoV-2+RSV Pnl Resp IGGY+probe Normal [facility] Comment on above: Performed By: #### 9 5941-1 ####[facility]ATORYCLIA [id number] [address] [place] HIGH SENSITIVITY TROPONIN T (INITIAL)on 11-10-2022 HIGH SENSITIVITY MARIE 89 ng/L High <12 [facility] Comment on above: Order Comment: Scott seals Type: BLOOD SPECIMENOrdering Facility: [facility] Address: [address] [place] [address] Result Comment: When assessing risk for acute [...] 30 day MACE. Performed By: #### L [id number] ####[facility]ORYCLIA [id number] [address] [place] HIGH SENSITIVITY TROPONIN T (SECOND)on 11-10-2022 HIGH SENSITIVITY MARIE 89 ng/L High <12 [facility] Comment on above: Order Comment: Scott seals Type: BLOOD SPECIMENOrdering Facility: [facility] Address: [address] [place] [address] Result Comment: When assessing risk for acute [...] 30 day MACE. Performed By: #### L [id number] ####[facility]ORYCLIA [id number] [place] [address] [facility] HISTORY PHYSICALon HISTORY PHYSICAL Normal [facility] NT-proBNP SerPl-mCncon 11-10 Natriuretic peptide.B prohormone N-Terminal [Mass/Vol] 356 pg/mL High <125 [facility] Comment on above: Order Comment: Speci men Type: BLOOD SPECIMENOrdering Facility: [facility] Address: [address] [place] [id number] Performed By: #### 2 4321-2, 10490-4 ####[facility]ORATORYCLIA [id number] [address] NURSING PROGon 11-10-2022 NURSING PROG Normal [facility] XR CHEST 1V FRONTALon 2022 XR CHEST 1V FRONTAL Normal [facility] XR SHLDR >/=3V AP/KEKE AP/OTH R RTon 11-10-2022 XR SHLDR >/=3V AP/KEKE AP/OTHR RT Normal [facility] CNPNon 11-09-2022 CNPN Normal [facility] CNPTOUTREACHon 11-09-2022 CNPTOUTREACH Normal [facility] CNPNon 10-31-2022 CNPN Normal [facility] CNPTOUTREACHon 10-31-2022 CNPTOUTREACH Normal [facility] CNPNon 10-29-2022 CNPN Normal [facility] CASE MANAGEMon 10-28-2022 CASE MANAGEM Normal [facility] CASE MANAGEM Normal [facility] CNDSon 10-28-2022 CNDS Normal [facility] SARS-CoV-2 RNA Resp Ql IGGY+p robeon 10-28-2022 SARS-CoV-2 (COVID-19) RNA IGGY+probe Ql (Resp) COVID 19 RESULT: SARS-CoV-2 (Agent of COVID-19) Not Detected by RT-PCR or equivalent method. This test has been authorized by FDA under an Emergency Use Authorization (EUA). Normal [facility] Comment on above: Performed By: #### 9 4500-6 ####[facility]ORATORYCLIA [id number] [address] [place] CASE MANAGEMon 10-27-2022 CASE MANAGEM Normal [facility] CASE MANAGEM Normal [facility] CASE MANAGEM Normal [facility] THERAPY NTon 10-27-2022 THERAPY NT Normal [facility] THERAPY NT Normal [facility] CASE MANAGEMon 10-26-2022 CASE MANAGEM Normal [facility] CONSULT PROGon 10-25-2022 CONSULT PROG Normal [facility] ALLIED HEALTHon 10-24-2022 ALLIED HEALTH Normal [facility] CASE MANAGEMon 10-24-2022 CASE MANAGEM Normal [facility] CBC W Auto Differential pane l (Bld)on 10-24-2022 Anisocytosis Ql (Bld) Present Normal [facility] Comment on above: Order Comment: Speci men Type: BLOOD SPECIMENOrdering Facility: [facility] Address: [address] [address] Performed By: #### 5 7021-8 ####[facility]ORATORYCLIA [id number] [place] [address] [place] Basophils (Bld) [#/Vol] 0.00 10*3/uL Normal <0.11 [facility] Comment on above: Order Comment: Speci men Type: BLOOD SPECIMENOrdering Facility: [facility] Address: [address] [address] Performed By: #### 5 7021-8 ####[facility]ORATORYCLIA [id number] [address] [place] Basophils/100 WBC (Bld) 0.0 % Normal A [facility] Comment on above: Order Comment: Speci men Type: BLOOD SPECIMENOrdering Facility: [facility] Address: [address] [address] Performed By: #### 5 7021-8 ####[facility]ORATORYCLIA [id number] [address] Differential cell count method Nom (Bld) Manual Normal [facility] Comment on above: Order Comment: Speci men Type: BLOOD SPECIMENOrdering Facility: [facility] Address: [address] [place] [address] Performed By: #### 5 7021-8 ####[facility]ORATORYCLIA [id number] [address] [place] Eosinophils (Bld) [#/Vol] 0.18 10*3/uL Normal <0.46 [facility] Comment on above: Order Comment: Speci men Type: BLOOD SPECIMENOrdering Facility: [facility] Address: [address] [place] [address] Performed By: #### 5 7021-8 ####[facility]ORATORYCLIA [id number] [address] Eosinophils/100 WBC (Bld) 2.0 % Normal [facility] Comment on above: Order Comment: Speci men Type: BLOOD SPECIMENOrdering Facility: [facility] Address: [address] [place] [address] Performed By: #### 5 7021-8 ####[facility]ORATORYCLIA [id number] [address] Erythrocyte distribution width (RBC) [Ratio] 14.9 % Normal 11.5-15.0 [facility] Comment on above: Order Comment: Speci men Type: BLOOD SPECIMENOrdering Facility: [facility] Address: [address] [place] [address] Performed By: #### 5 7021-8 ####[facility]ORATORYCLIA [id number] [address] Hematocrit (Bld) [Volume fraction] 28.4 % Low 36.0-46.0 [facility] Comment on above: Order Comment: Speci men Type: BLOOD SPECIMENOrdering Facility: [facility] Address: [address] [place] [address] Performed By: #### 5 7021-8 ####[facility]ORATORYCLIA [id number] [address] [place] Hemoglobin (Bld) [Mass/Vol] 8.7 g/dL Low 11.5-15.5 [facility] Comment on above: Order Comment: Speci men Type: BLOOD SPECIMENOrdering Facility: [facility] Address: [address] [place] [address] Performed By: #### 5 7021-8 ####[facility]ATORYCLIA [id number] [address] [place] Lymphocytes (Bld) [#/Vol] 1.84 10*3/uL Normal 1.00-4.00 [facility] Comment on above: Order Comment: Speci men Type: BLOOD SPECIMENOrdering Facility: [facility] Address: [address] [place] [address] Performed By: #### 5 7021-8 ####[facility]ATORYCLIA [id number] [address] Lymphocytes/100 WBC (Bld) 4.0 % Normal [facility] Comment on above: Order Comment: Speci men Type: BLOOD SPECIMENOrdering Facility: [facility] Address: [address] [place] [address] Performed By: #### 5 7021-8 ####[facility]ORATORYCLIA [id number] [address] [place] MCH (RBC) [Entitic mass] 29.7 pg Normal 26.0-34.0 [facility] Comment on above: Order Comment: Speci men Type: BLOOD SPECIMENOrdering Facility: [facility] Address: [address] [place] [address] Performed By: #### 5 7021-8 ####[facility]ORATORYCLIA [id number] [address] [place] MCHC (RBC) [Mass/Vol] 30.6 g/dL Normal 30.5-36.0 [facility] Comment on above: Order Comment: Speci men Type: BLOOD SPECIMENOrdering Facility: [facility] Address: [address] [place] [address] Performed By: #### 5 7021-8 ####[facility]ORATORYCLIA [id number] [address] MCV (RBC) [Entitic vol] 96.9 fL Normal 80.0-100.0 A [facility] Comment on above: Order Comment: Speci men Type: BLOOD SPECIMENOrdering Facility: [facility] Address: [address] [place] [address] Performed By: #### 5 7021-8 ####[facility]ORATORYCLIA [id number] [address] Metamyelocytes/100 WBC (Bld) 5.0 % Normal [facility] Comment on above: Order Comment: Speci men Type: BLOOD SPECIMENOrdering Facility: [facility] Address: [address] [place] [address] Performed By: #### 5 7021-8 ####[facility]ORATORYCLIA [id number] [address] Monocytes (Bld) [#/Vol] 0.74 10*3/uL Normal <0.87 [facility] Comment on above: Order Comment: Speci men Type: BLOOD SPECIMENOrdering Facility: [facility] Address: [address] [place] [address] Performed By: #### 5 7021-8 ####[facility]ORATORYCLIA [id number] [address] Monocytes/100 WBC (Bld) 8.0 % Normal A [facility] Comment on above: Order Comment: Speci men Type: BLOOD SPECIMENOrdering Facility: [facility] Address: [address] [place] [address] Performed By: #### 5 7021-8 ####[facility]ORATORYCLIA [id number] [address] [place] MYELO% 2.0 % Normal [facility] Comment on above: Order Comment: Speci men Type: BLOOD SPECIMENOrdering Facility: [facility] Address: [address] [address] Performed By: #### 5 7021-8 ####[facility]ORATORYCLIA [id number] [place] [address] [place] Neutrophils (Bld) [#/Vol] 5.79 10*3/uL Normal 1.45-7.50 [facility] Comment on above: Order Comment: Speci men Type: BLOOD SPECIMENOrdering Facility: [facility] Address: [address] [place] [address] Performed By: #### 5 7021-8 ####[facility]ORATORYCLIA [id number] [address] [place] Neutrophils/100 WBC (Bld) 63.0 % Normal [facility] Comment on above: Order Comment: Speci men Type: BLOOD SPECIMENOrdering Facility: [facility] Address: [address] [place] [address] Performed By: #### 5 7021-8 ####[facility]ORATORYCLIA [id number] [address] [place] Nucleated RBC (Bld) [#/Vol] 10*3/uL Normal <0.01 [facility] Comment on above: Order Comment: Speci men Type: BLOOD SPECIMENOrdering Facility: [facility] Address: [address] [place] [address] Result Comment: This result was previously suppressed from the chart. Performed By: #### 5 7021-8 ####[facility]ATORYCLIA [id number] [address] [place] Nucleated RBC/100 WBC (Bld) [Ratio] 0.0 /100 WBC Normal [facility] Comment on above: Order Comment: Speci men Type: BLOOD SPECIMENOrdering Facility: [facility] Address: [address] [place] [address] Performed By: #### 5 7021-8 ####[facility]ORATORYCLIA [id number] [place] [address] [place] Ovalocytes LM Ql (Bld) Few Normal [facility] Comment on above: Order Comment: Speci men Type: BLOOD SPECIMENOrdering Facility: [facility] Address: [address] [place] [address] Performed By: #### 5 7021-8 ####[facility]ORATORYCLIA [id number] [place] [address] [place] Platelet mean volume (Bld) [Entitic vol] 8.1 fL Low 9.0-12.7 [facility] Comment on above: Order Comment: Speci men Type: BLOOD SPECIMENOrdering Facility: [facility] Address: [address] [address] Performed By: #### 5 7021-8 ####[facility]ATORYCLIA [id number] [place] [address] [place] Platelets (Bld) [#/Vol] 352 10*3/uL Normal 150-400 [facility] Comment on above: Order Comment: Speci men Type: BLOOD SPECIMENOrdering Facility: [facility] Address: [address] [address] Performed By: #### 5 7021-8 ####[facility]ORATORYCLIA [id number] [place] [address] [place] Platelets Estimate (Bld) [#/Vol] Adequate Normal [facility] Comment on above: Order Comment: Speci men Type: BLOOD SPECIMENOrdering Facility: [facility] Address: [address] [address] Performed By: #### 5 7021-8 ####[facility]ORATORYCLIA [id number] [place] [address] [place] Polychromasia LM Ql (Bld) Slight Normal [facility] Comment on above: Order Comment: Speci men Type: BLOOD SPECIMENOrdering Facility: [facility] Address: [address] [address] Performed By: #### 5 7021-8 ####[facility]ORATORYCLIA [id number] [address] STATES OF [facility] RBC (Bld) [#/Vol] 2.93 10*6/uL Low 3.90-5.20 [facility] Comment on above: Order Comment: Speci men Type: BLOOD SPECIMENOrdering Facility: [facility] Address: [address] [place] [address] Performed By: #### 5 7021-8 ####[facility]ORATORYCLIA [id number] [address] RED CELL MORPH Reviewed: see result s of individual morphologies Normal [facility] Comment on above: Order Comment: Speci men Type: BLOOD SPECIMENOrdering Facility: [facility] Address: [address] [place] [address] Performed By: #### 5 7021-8 ####[facility]ATORYCLIA [id number] [address] Variant lymphocytes/100 WBC (Bld) 16.0 % Normal [facility] Comment on above: Order Comment: Speci men Type: BLOOD SPECIMENOrdering Facility: [facility] Address: [address] [place] [address] Performed By: #### 5 7021-8 ####[facility]ATORYCLIA [id number] [address] WBC (Bld) [#/Vol] 9.19 10*3/uL Normal 3.70-11.00 [facility] Comment on above: Order Comment: Speci men Type: BLOOD SPECIMENOrdering Facility: [facility] Address: [address] [place] [address] Performed By: #### 5 7021-8 ####[facility]ORATORYCLIA [id number] [address] Comprehensive metabolic 2000 panelon 10-24-2022 Albumin [Mass/Vol] 2.8 g/dL Low 3.9-4.9 [facility] Comment on above: Order Comment: Speci men Type: BLOOD SPECIMENOrdering Facility: [facility] Address: [address] [address] Performed By: #### 2 4323-8 ####[facility]ORATORYCLIA [id number] [address] ALP [Catalytic activity/Vol] 64 U/L Normal 34-123 [facility] Comment on above: Order Comment: Speci men Type: BLOOD SPECIMENOrdering Facility: [facility] Address: [address] [place] [address] Performed By: #### 2 4323-8 ####[facility]ORATORYCLIA [id number] [address] ALT With P-5'-P [Catalytic activity/Vol] 16 U/L Normal 7-38 [facility] Comment on above: Order Comment: Speci men Type: BLOOD SPECIMENOrdering Facility: [facility] Address: [address] [place] [address] Performed By: #### 2 4323-8 ####[facility]ORATORYCLIA [id number] [address] STATES [facility] Anion gap [Moles/Vol] 8 mmol/L Low 9-18 [facility] Comment on above: Order Comment: Speci men Type: BLOOD SPECIMENOrdering Facility: [facility] Address: [address] [place] [address] Performed By: #### 2 4323-8 ####[facility]ATORYCLIA [id number] [address] AST With P-5'-P [Catalytic activity/Vol] 15 U/L Normal 13-35 [facility] Comment on above: Order Comment: Speci men Type: BLOOD SPECIMENOrdering Facility: [facility] Address: [address] [place] [address] Performed By: #### 2 4323-8 ####[facility]ORATORYCLIA [id number] [address] [place] Bilirubin [Mass/Vol] 0.3 mg/dL Normal 0.2-1.3 [facility] Comment on above: Order Comment: Speci men Type: BLOOD SPECIMENOrdering Facility: [facility] Address: [address] [place] [address] Performed By: #### 2 4323-8 ####[facility] LABORATORYCLIA [id number] [address] [place] Calcium [Mass/Vol] 8.9 mg/dL Normal 8.5-10.2 [facility] Comment on above: Order Comment: Speci men Type: BLOOD SPECIMENOrdering Facility: [facility] Address: [address] [place] [address] Performed By: #### 2 4323-8 ####[facility]ORATORYCLIA [id number] [address] [place] Chloride [Moles/Vol] 95 mmol/L Low 97-105 [facility] Comment on above: Order Comment: Speci men Type: BLOOD SPECIMENOrdering Facility: [facility] Address: [address] [place] [address] Performed By: #### 2 4323-8 ####[facility]ORATORYCLIA [id number] [address] [place] CO2 [Moles/Vol] 35 mmol/L High 22-30 [facility] Comment on above: Order Comment: Speci men Type: BLOOD SPECIMENOrdering Facility: [facility] Address: [address] [place] [address] Performed By: #### 2 4323-8 ####[facility]ORATORYCLIA [id number] [address] [place] Creatinine [Mass/Vol] 1.54 mg/dL High 0.58-0.96 [facility] Comment on above: Order Comment: Speci men Type: BLOOD SPECIMENOrdering Facility: [facility] Address: [address] [place] [address] Performed By: #### 2 4323-8 ####[facility]ORATORYCLIA [id number] [place] [address] [place] ESTIMATED GLOMERULAR FILTRATION RATE 37 mL/min/1.73m??? Low >=60 [facility] Comment on above: Order Comment: Scott seals Type: BLOOD SPECIMENOrdering Facility: [facility] Address: [address] [place] [address] Result Comment: Petra mated Glomerular Filtration Rate [...] actual GFR. Performed By: #### 2 4323-8 ####[facility]ATORYCLIA [id number] [place] [address] [place] Glucose [Mass/Vol] 193 mg/dL High 74-99 [facility] Comment on above: Order Comment: Scott seals Type: BLOOD SPECIMENOrdering Facility: [facility] Address: [address] [place] [address] Result Comment: The [place] [employer] (ADA) provides guidance for cutoff [...] Standards of Medical Care in Diabetes 2016, [place] [employer]. Diabetes Care. 2016.39(Suppl 1). Performed By: #### 2 4323-8 ####[facility]ATORYCLIA [id number] [place] [address] [place] Potassium [Moles/Vol] 4.8 mmol/L Normal 3.7-5.1 [facility] Comment on above: Order Comment: Scott seals Type: BLOOD SPECIMENOrdering Facility: [facility] Address: [address] [address] Performed By: #### 2 4323-8 ####[facility]ORATORYCLIA [id number] [address] STATES OF [facility] Protein [Mass/Vol] 5.7 g/dL Low 6.3-8.0 [facility] Comment on above: Order Comment: Speci men Type: BLOOD SPECIMENOrdering Facility: [facility] Address: [address] [place] [address] Performed By: #### 2 4323-8 ####[facility]ATORYCLIA [id number] [address] [place] Sodium [Moles/Vol] 138 mmol/L Normal 136-144 [facility] Comment on above: Order Comment: Speci men Type: BLOOD SPECIMENOrdering Facility: [facility] Address: [address] [place] [address] Performed By: #### 2 4323-8 ####[facility]ATORYCLIA [id number] [address] [place] Urea nitrogen [Mass/Vol] 36 mg/dL High 7-21 [facility] Comment on above: Order Comment: Speci men Type: BLOOD SPECIMENOrdering Facility: [facility] Address: [address] [place] [address] Performed By: #### 2 4323-8 ####[facility]ATORYCLIA [id number] [place] [address] [place] THERAPY NTon 10-24-2022 THERAPY NT Normal [facility] NUTRITIONon 10-23-2022 NUTRITION Normal [facility] Basic metabolic 2000 panelon 10-20-2022 Anion gap [Moles/Vol] 7 mmol/L Low 9-18 [facility] Comment on above: Order Comment: Speci men Type: BLOOD SPECIMENOrdering Facility: [facility] Address: [address] [place] [address] Performed By: #### 2 4321-2 ####[facility]ATORYCLIA [id number] [place] [address] [place] Calcium [Mass/Vol] 8.7 mg/dL Normal 8.5-10.2 [facility] Comment on above: Order Comment: Speci men Type: BLOOD SPECIMENOrdering Facility: [facility] Address: [address] [address] Performed By: #### 2 4321-2 ####[facility]ATORYCLIA [id number] [place] [address] [place] Chloride [Moles/Vol] 98 mmol/L Normal 97-105 [facility] Comment on above: Order Comment: Speci men Type: BLOOD SPECIMENOrdering Facility: [facility] Address: [address] [place] [address] Performed By: #### 2 4321-2 ####[facility]ATORYCLIA [id number] [address] [place] CO2 [Moles/Vol] 32 mmol/L High 22-30 [facility] Comment on above: Order Comment: Speci men Type: BLOOD SPECIMENOrdering Facility: [facility] Address: [address] [place] [address] Performed By: #### 2 4321-2 ####[facility]ATORYCLIA [id number] [address] [place] Creatinine [Mass/Vol] 1.57 mg/dL High 0.58-0.96 [facility] Comment on above: Order Comment: Speci men Type: BLOOD SPECIMENOrdering Facility: [facility] Address: [address] [place] [address] Performed By: #### 2 4321-2 ####[facility]ORATORYCLIA [id number] [address] [place] ESTIMATED GLOMERULAR FILTRATION RATE 36 mL/min/1.73m??? Low >=60 [facility] Comment on above: Order Comment: Speci men Type: BLOOD SPECIMENOrdering Facility: [facility] Address: [address] [place] [address] Result Comment: Petra mated Glomerular Filtration Rate [...] actual GFR. Performed By: #### 2 4321-2 ####[facility]ATORYCLIA [id number] [place] [address] [place] Glucose [Mass/Vol] 201 mg/dL High 74-99 [facility] Comment on above: Order Comment: Speci men Type: BLOOD SPECIMENOrdering Facility: [facility] Address: [address] [place] [address] Result Comment: The [place] [employer] (ADA) provides guidance for cutoff [...] Standards of Medical Care in Diabetes 2016, [place] [employer]. Diabetes Care. 2016.39(Suppl 1). Performed By: #### 2 4321-2 ####[facility]ATORYCLIA [id number] [place] [address] [place] Potassium [Moles/Vol] 4.5 mmol/L Normal 3.7-5.1 [facility] Comment on above: Order Comment: Scott seals Type: BLOOD SPECIMENOrdering Facility: [facility] Address: [address] [id number] Performed By: #### 2 4321-2 ####[facility]ORATORYCLIA [id number] [address] [place] [id number] [place] Sodium [Moles/Vol] 137 mmol/L Normal 136-144 [facility] Comment on above: Order Comment: Speci men Type: BLOOD SPECIMENOrdering Facility: [facility] Address: [address] [address] Performed By: #### 2 4321-2 ####[facility]ORATORYCLIA [id number] [place] [address] [place] Urea nitrogen [Mass/Vol] 29 mg/dL High 7-21 [facility] Comment on above: Order Comment: Speci men Type: BLOOD SPECIMENOrdering Facility: [facility] Address: [address] [address] Performed By: #### 2 4321-2 ####[facility]ORATORYCLIA [id number] [address] [place] CASE MANAGEMon 10-20-2022 CASE MANAGEM Normal [facility] CBC panel Auto (Bld)on 10-20 Erythrocyte distribution width (RBC) [Ratio] 14.8 % Normal 11.5-15.0 [facility] Comment on above: Order Comment: Speci men Type: BLOOD SPECIMENOrdering Facility: [facility] Address: [address] [address] Performed By: #### 5 8410-2 ####[facility] LABORATORYCLIA [id number] [address] [place] Hematocrit (Bld) [Volume fraction] 27.4 % Low 36.0-46.0 [facility] Comment on above: Order Comment: Speci men Type: BLOOD SPECIMENOrdering Facility: [facility] Address: [address] [address] Performed By: #### 5 8410-2 ####[facility]ORATORYCLIA [id number] [place] [address] [place] Hemoglobin (Bld) [Mass/Vol] 8.4 g/dL Low 11.5-15.5 [facility] Comment on above: Order Comment: Speci men Type: BLOOD SPECIMENOrdering Facility: [facility] Address: [address] [address] Performed By: #### 5 8410-2 ####[facility]ATORYCLIA [id number] [address] MCH (RBC) [Entitic mass] 29.8 pg Normal 26.0-34.0 [facility] Comment on above: Order Comment: Speci men Type: BLOOD SPECIMENOrdering Facility: [facility] Address: [address] [place] [address] Performed By: #### 5 8410-2 ####[facility]ATORYCLIA [id number] [address] MCHC (RBC) [Mass/Vol] 30.7 g/dL Normal 30.5-36.0 [facility] Comment on above: Order Comment: Speci men Type: BLOOD SPECIMENOrdering Facility: [facility] Address: [address] [place] [address] Performed By: #### 5 8410-2 ####[facility]ATORYCLIA [id number] [address] MCV (RBC) [Entitic vol] 97.2 fL Normal 80.0-100.0 [facility] Comment on above: Order Comment: Speci men Type: BLOOD SPECIMENOrdering Facility: [facility] Address: [address] [place] [address] Performed By: #### 5 8410-2 ####[facility]ORYCLIA [id number] [address] Nucleated RBC (Bld) [#/Vol] 0.06 10*3/uL High <0.01 [facility] Comment on above: Order Comment: Speci men Type: BLOOD SPECIMENOrdering Facility: [facility] Address: [address] [place] [address] Performed By: #### 5 8410-2 ####[facility]ATORYCLIA [id number] [address] [facility] Platelet mean volume (Bld) [Entitic vol] 8.1 fL Low 9.0-12.7 [facility] Comment on above: Order Comment: Speci men Type: BLOOD SPECIMENOrdering Facility: [facility] Address: [address] [place] [address] Performed By: #### 5 8410-2 ####[facility]ATORYCLIA [id number] [address] [facility] Platelets (Bld) [#/Vol] 303 10*3/uL Normal 150-400 [facility] Comment on above: Order Comment: Speci men Type: BLOOD SPECIMENOrdering Facility: [facility] Address: [address] [place] [address] Performed By: #### 5 8410-2 ####[facility]ORYCLIA [id number] [address] RBC (Bld) [#/Vol] 2.82 10*6/uL Low 3.90-5.20 [facility] Comment on above: Order Comment: Speci men Type: BLOOD SPECIMENOrdering Facility: [facility] Address: [address] [place] [address] Performed By: #### 5 8410-2 ####[facility]ORYCLIA [id number] [address] WBC (Bld) [#/Vol] 8.51 10*3/uL Normal 3.70-11.00 [facility] Comment on above: Order Comment: Speci men Type: BLOOD SPECIMENOrdering Facility: [facility] Address: [address] [place] [address] Performed By: #### 5 8410-2 ####[facility]ORYCLIA [id number] [address] [facility] CASE MANAGEMon 10-19-2022 CASE MANAGEM Normal [facility] CBC panel Auto (Bld)on 10-18 Erythrocyte distribution width (RBC) [Ratio] 14.8 % Normal 11.5-15.0 [facility] Comment on above: Order Comment: Speci men Type: BLOOD SPECIMENOrdering Facility: [facility] Address: [address] [address] Performed By: #### 5 8410-2 ####[facility]ORYCLIA [id number] [address] Hematocrit (Bld) [Volume fraction] 27.8 % Low 36.0-46.0 [facility] Comment on above: Order Comment: Speci men Type: BLOOD SPECIMENOrdering Facility: [facility] Address: [address] [place] [address] Performed By: #### 5 8410-2 ####[facility]ORYCLIA [id number] [address] Hemoglobin (Bld) [Mass/Vol] 8.3 g/dL Low 11.5-15.5 [facility] Comment on above: Order Comment: Speci men Type: BLOOD SPECIMENOrdering Facility: [facility] Address: [address] [place] [address] Performed By: #### 5 8410-2 ####[facility]ATORYCLIA [id number] [address] MCH (RBC) [Entitic mass] 30.4 pg Normal 26.0-34.0 [facility] Comment on above: Order Comment: Speci men Type: BLOOD SPECIMENOrdering Facility: [facility] Address: [address] [place] [address] Performed By: #### 5 8410-2 ####[facility]ATORYCLIA [id number] [address] [place] MCHC (RBC) [Mass/Vol] 29.9 g/dL Low 30.5-36.0 [facility] Comment on above: Order Comment: Speci men Type: BLOOD SPECIMENOrdering Facility: [facility] Address: [address] [place] [address] Performed By: #### 5 8410-2 ####[facility]ATORYCLIA [id number] [address] MCV (RBC) [Entitic vol] 101.8 fL High 80.0-100.0 [facility] Comment on above: Order Comment: Speci men Type: BLOOD SPECIMENOrdering Facility: [facility] Address: [address] [address] Performed By: #### 5 8410-2 ####[facility]ATORYCLIA [id number] [place] [address] [place] Nucleated RBC (Bld) [#/Vol] 0.03 10*3/uL High <0.01 [facility] Comment on above: Order Comment: Speci men Type: BLOOD SPECIMENOrdering Facility: [facility] Address: [address] [address] Performed By: #### 5 8410-2 ####[facility]ATORYCLIA [id number] [address] [place] Platelet mean volume (Bld) [Entitic vol] 9.1 fL Normal 9.0-12.7 [facility] Comment on above: Order Comment: Speci men Type: BLOOD SPECIMENOrdering Facility: [facility] Address: [address] [address] Performed By: #### 5 8410-2 ####[facility]ATORYCLIA [id number] [address] [place] Platelets (Bld) [#/Vol] 246 10*3/uL Normal 150-400 [facility] Comment on above: Order Comment: Speci men Type: BLOOD SPECIMENOrdering Facility: [facility] Address: [address] [address] Performed By: #### 5 8410-2 ####[facility]ATORYCLIA [id number] [place] [address] [place] RBC (Bld) [#/Vol] 2.73 10*6/uL Low 3.90-5.20 [facility] Comment on above: Order Comment: Speci men Type: BLOOD SPECIMENOrdering Facility: [facility] Address: [address] [address] Performed By: #### 5 8410-2 ####[facility]ATORYCLIA [id number] [place] [address] [place] WBC (Bld) [#/Vol] 7.07 10*3/uL Normal 3.70-11.00 [facility] Comment on above: Order Comment: Speci men Type: BLOOD SPECIMENOrdering Facility: [facility] Address: [address] [place] [address] Performed By: #### 5 8410-2 ####[facility]ATORYCLIA [id number] [address] [place] NURSING PROGon 10-18-2022 NURSING PROG Normal [facility] THERAPY NTon 10-18-2022 THERAPY NT Normal [facility] THERAPY NT Normal [facility] Basic metabolic 2000 panelon 10-17-2022 Anion gap [Moles/Vol] 10 mmol/L Normal 9-18 [facility] Comment on above: Order Comment: Speci men Type: BLOOD SPECIMENOrdering Facility: [facility] Address: [address] [place] [address] Performed By: #### 2 4321-2 ####[facility]ATORYCLIA [id number] [place] [address] [place] Calcium [Mass/Vol] 8.5 mg/dL Normal 8.5-10.2 [facility] Comment on above: Order Comment: Speci men Type: BLOOD SPECIMENOrdering Facility: [facility] Address: [address] [place] [address] Performed By: #### 2 4321-2 ####[facility]ATORYCLIA [id number] [place] [address] [place] Chloride [Moles/Vol] 99 mmol/L Normal 97-105 [facility] Comment on above: Order Comment: Speci men Type: BLOOD SPECIMENOrdering Facility: [facility] Address: [address] [place] [address] Performed By: #### 2 4321-2 ####[facility]ATORYCLIA [id number] [address] [facility] CO2 [Moles/Vol] 28 mmol/L Normal 22-30 [facility] Comment on above: Order Comment: Speci men Type: BLOOD SPECIMENOrdering Facility: [facility] Address: [address] [place] [address] Performed By: #### 2 4321-2 ####[facility]ATORYCLIA [id number] [address] [place] Creatinine [Mass/Vol] 1.62 mg/dL High 0.58-0.96 [facility] Comment on above: Order Comment: Speci men Type: BLOOD SPECIMENOrdering Facility: [facility] Address: [address] [place] [address] Performed By: #### 2 4321-2 ####[facility]ATORYCLIA [id number] [address] ESTIMATED GLOMERULAR FILTRATION RATE 35 mL/min/1.73m??? Low >=60 [facility] Comment on above: Order Comment: Speci men Type: BLOOD SPECIMENOrdering Facility: [facility] Address: [address] [place] [address] Result Comment: Petra mated Glomerular Filtration Rate [...] actual GFR. Performed By: #### 2 4321-2 ####[facility]ATORYCLIA [id number] [address] [place] Glucose [Mass/Vol] 164 mg/dL High 74-99 [facility] Comment on above: Order Comment: Speci men Type: BLOOD SPECIMENOrdering Facility: [facility] Address: [address] [place] [address] Result Comment: The [place] [employer] (ADA) provides guidance for cutoff [...] Standards of Medical Care in Diabetes 2016, [place] [employer]. Diabetes Care. 2016.39(Suppl 1). Performed By: #### 2 4321-2 ####[facility]ATORYCLIA [id number] [address] STATES [facility] Potassium [Moles/Vol] 3.3 mmol/L Low 3.7-5.1 [facility] Comment on above: Order Comment: Speci men Type: BLOOD SPECIMENOrdering Facility: [facility] Address: [address] [place] [address] Performed By: #### 2 1-2 ####[facility]ATORYCLIA [id number] [address] STATES [facility] Sodium [Moles/Vol] 137 mmol/L Normal 136-144 [facility] Comment on above: Order Comment: Luhi bozena Type: BLOOD SPECIMENOrdering Facility: [facility] Address: [address] [place] [address] Performed By: #### 2 1-2 ####[facility]ORATORYCLIA [id number] [address] STATES [facility] Urea nitrogen [Mass/Vol] 41 mg/dL High 7-21 [facility] Comment on above: Order Comment: Speci men Type: BLOOD SPECIMENOrdering Facility: [facility] Address: [address] [address] Performed By: #### 2 1-2 ####[facility]ATORYCLIA [id number] [address] [place] CBC panel Auto (Bld)on 10-17 Erythrocyte distribution width (RBC) [Ratio] 14.6 % Normal 11.5-15.0 [facility] Comment on above: Order Comment: Speci men Type: BLOOD SPECIMENOrdering Facility: [facility] Address: [address] [place] [address] Performed By: #### 5 8410-2 ####[facility]ATORYCLIA [id number] [address] Hematocrit (Bld) [Volume fraction] 27.7 % Low 36.0-46.0 [facility] Comment on above: Order Comment: Speci men Type: BLOOD SPECIMENOrdering Facility: [facility] Address: [address] [place] [address] Performed By: #### 5 8410-2 ####[facility]ATORYCLIA [id number] [address] STATES [facility] Hemoglobin (Bld) [Mass/Vol] 8.5 g/dL Low 11.5-15.5 [facility] Comment on above: Order Comment: Speci men Type: BLOOD SPECIMENOrdering Facility: [facility] Address: [address] [place] [address] Performed By: #### 5 8410-2 ####[facility]ATORYCLIA [id number] [address] MCH (RBC) [Entitic mass] 29.9 pg Normal 26.0-34.0 [facility] Comment on above: Order Comment: Speci men Type: BLOOD SPECIMENOrdering Facility: [facility] Address: [address] [place] [address] Performed By: #### 5 8410-2 ####[facility]ATORYCLIA [id number] [address] MCHC (RBC) [Mass/Vol] 30.7 g/dL Normal 30.5-36.0 [facility] Comment on above: Order Comment: Speci men Type: BLOOD SPECIMENOrdering Facility: [facility] Address: [address] [place] [address] Performed By: #### 5 8410-2 ####[facility]ATORYCLIA [id number] [address] [place] MCV (RBC) [Entitic vol] 97.5 fL Normal 80.0-100.0 [facility] Comment on above: Order Comment: Speci men Type: BLOOD SPECIMENOrdering Facility: [facility] Address: [address] [place] [address] Performed By: #### 5 8410-2 ####[facility]ATORYCLIA [id number] [address] [place] Nucleated RBC (Bld) [#/Vol] 0.03 10*3/uL High <0.01 [facility] Comment on above: Order Comment: Speci men Type: BLOOD SPECIMENOrdering Facility: [facility] Address: [address] [place] [address] Performed By: #### 5 8410-2 ####[facility]ATORYCLIA [id number] [address] Platelet mean volume (Bld) [Entitic vol] 8.3 fL Low 9.0-12.7 [facility] Comment on above: Order Comment: Speci men Type: BLOOD SPECIMENOrdering Facility: [facility] Address: [address] [place] [address] Performed By: #### 5 8410-2 ####[facility]ATORYCLIA [id number] [address] [place] Platelets (Bld) [#/Vol] 275 10*3/uL Normal 150-400 [facility] Comment on above: Order Comment: Speci men Type: BLOOD SPECIMENOrdering Facility: [facility] Address: [address] [place] [address] Performed By: #### 5 8410-2 ####[facility]ATORYCLIA [id number] [address] [place] RBC (Bld) [#/Vol] 2.84 10*6/uL Low 3.90-5.20 [facility] Comment on above: Order Comment: Speci men Type: BLOOD SPECIMENOrdering Facility: [facility] Address: [address] [place] [address] Performed By: #### 5 8410-2 ####[facility]ATORYCLIA [id number] [place] [address] [place] WBC (Bld) [#/Vol] 6.41 10*3/uL Normal 3.70-11.00 [facility] Comment on above: Order Comment: Speci men Type: BLOOD SPECIMENOrdering Facility: [facility] Address: [address] [place] [address] Performed By: #### 5 8410-2 ####[facility]ATORYCLIA [id number] [address] [place] ALLIED HEALTHon 10-16-2022 ALLIED HEALTH Normal [facility] Basic metabolic 2000 panelon 10-16-2022 Anion gap [Moles/Vol] 13 mmol/L Normal 9-18 [facility] Comment on above: Order Comment: Speci men Type: BLOOD SPECIMENOrdering Facility: [facility] Address: [address] [place] [address] Performed By: #### 2 4321-2, 89714-3, 24480-1, 71438-6, 6-3 ####[facility]ATORYCLIA [id number] [address] [place] Calcium [Mass/Vol] 9.2 mg/dL Normal 8.5-10.2 [facility] Comment on above: Order Comment: Speci men Type: BLOOD SPECIMENOrdering Facility: [facility] Address: [address] [place] [address] Performed By: #### 2 4321-2, 41855-1, 36198-4, 26086-2, 6-3 ####[facility]ATORYCLIA [id number] [address] [place] Chloride [Moles/Vol] 98 mmol/L Normal 97-105 [facility] Comment on above: Order Comment: Speci men Type: BLOOD SPECIMENOrdering Facility: [facility] Address: [address] [place] [address] Performed By: #### 2 4321-2, 79920-1, 37611-6, 60772-8, 6-3 ####[facility]ATORYCLIA [id number] [place] [address] [place] CO2 [Moles/Vol] 28 mmol/L Normal 22-30 [facility] Comment on above: Order Comment: Speci men Type: BLOOD SPECIMENOrdering Facility: [facility] Address: [address] [place] [address] Performed By: #### 2 4321-2, 83644-6, 72172-6, 01150-5, 3015-3 ####[facility]ATORYCLIA [id number] [address] [place] Creatinine [Mass/Vol] 1.61 mg/dL High 0.58-0.96 [facility] Comment on above: Order Comment: Speci men Type: BLOOD SPECIMENOrdering Facility: [facility] Address: [address] [place] [address] Performed By: #### 2 4321-2, 14803-7, 37917-8, 35350-6, 6-3 ####[facility]ATORYCLIA [id number] [address] [place] ESTIMATED GLOMERULAR FILTRATION RATE 35 mL/min/1.73m??? Low >=60 [facility] Comment on above: Order Comment: Speci men Type: BLOOD SPECIMENOrdering Facility: [facility] Address: [address] [place] [address] Result Comment: Petra mated Glomerular Filtration Rate [...] actual GFR. Performed By: #### 2 4321-2, 08852-9, 61724-3, 82929-5, 6-3 ####[facility]ATORYCLIA [id number] [place] [address] [place] Glucose [Mass/Vol] 173 mg/dL High 74-99 [facility] Comment on above: Order Comment: Scott seals Type: BLOOD SPECIMENOrdering Facility: [facility] Address: [address] [place], [place] [phone] Result Comment: The [place] [employer] (ADA) provides guidance for cutoff [...] Standards of Medical Care in Diabetes 2016, [place] [employer]. Diabetes Care. 2016.39(Suppl 1). Performed By: #### 2 4321-2, 30127-0, 80631-0, 99218-1, 6-3 ####[facility]ATORYCLIA [id number] [place] [address] [place] Potassium [Moles/Vol] 4.2 mmol/L Normal 3.7-5.1 [facility] Comment on above: Order Comment: Luhi men Type: BLOOD SPECIMENOrdering Facility: [facility] Address: [address] [id number] Performed By: #### 2 4321-2, 16751-9, 45131-5, 78971-0, 6-3 ####[facility]ATORYCLIA [id number] [place] [address] [place] Sodium [Moles/Vol] 139 mmol/L Normal 136-144 [facility] Comment on above: Order Comment: Speci men Type: BLOOD SPECIMENOrdering Facility: [facility] Address: [address] [address] Performed By: #### 2 4321-2, 89471-7, 59171-7, 71363-5, 3016-3 ####[facility]ATORYCLIA [id number] [place] [address] [place] Urea nitrogen [Mass/Vol] 51 mg/dL High 7-21 [facility] Comment on above: Order Comment: Speci men Type: BLOOD SPECIMENOrdering Facility: [facility] Address: [address] [address] Performed By: #### 2 4321-2, 92723-2, 41940-1, 57781-0, 3016-3 ####[facility]ATORYCLIA [id number] [address] [place] CASE MGT INIT ASSESon 2021 CASE MGT INIT ASSES Normal [facility] CBC W Auto Differential pane l (Bld)on 10-16-2022 Basophils (Bld) [#/Vol] 0.00 10*3/uL Normal <0.11 [facility] Comment on above: Order Comment: Speci men Type: BLOOD SPECIMENOrdering Facility: [facility] Address: [address] [place] [address] Performed By: #### 5 7021-8 ####[facility]ORATORYCLIA [id number] [address] [place] Basophils/100 WBC (Bld) 0.0 % Normal A [facility] Comment on above: Order Comment: Speci men Type: BLOOD SPECIMENOrdering Facility: [facility] Address: [address] [place] [address] Performed By: #### 5 7021-8 ####[facility]ATORYCLIA [id number] [address] [place] Differential cell count method Nom (Bld) Manual Normal [facility] Comment on above: Order Comment: Speci men Type: BLOOD SPECIMENOrdering Facility: [facility] Address: [address] [address] Performed By: #### 5 7021-8 ####[facility]ATORYCLIA [id number] [address] Eosinophils (Bld) [#/Vol] 0.00 10*3/uL Normal <0.46 [facility] Comment on above: Order Comment: Speci men Type: BLOOD SPECIMENOrdering Facility: [facility] Address: [address] [place] [address] Performed By: #### 5 7021-8 ####[facility]ATORYCLIA [id number] [address] Eosinophils/100 WBC (Bld) 0.0 % Normal [facility] Comment on above: Order Comment: Speci men Type: BLOOD SPECIMENOrdering Facility: [facility] Address: [address] [place] [address] Performed By: #### 5 7021-8 ####[facility]ORYCLIA [id number] [address] Erythrocyte distribution width (RBC) [Ratio] 14.4 % Normal 11.5-15.0 [facility] Comment on above: Order Comment: Speci men Type: BLOOD SPECIMENOrdering Facility: [facility] Address: [address] [place] [address] Performed By: #### 5 7021-8 ####[facility] LABORATORYCLIA [id number] [address] Hematocrit (Bld) [Volume fraction] 32.7 % Low 36.0-46.0 [facility] Comment on above: Order Comment: Speci men Type: BLOOD SPECIMENOrdering Facility: [facility] Address: [address] [place] [address] Performed By: #### 5 7021-8 ####[facility] LABORATORYCLIA [id number] [place] Hemoglobin (Bld) [Mass/Vol] 10.1 g/dL Low 11.5-15.5 [facility] Comment on above: Order Comment: Speci men Type: BLOOD SPECIMENOrdering Facility: [facility] Address: [address] [place] [address] Performed By: #### 5 7021-8 ####[facility]ORATORYCLIA [id number] [address] Lymphocytes (Bld) [#/Vol] 1.04 10*3/uL Normal 1.00-4.00 [facility] Comment on above: Order Comment: Speci men Type: BLOOD SPECIMENOrdering Facility: [facility] Address: [address] [place] [address] Performed By: #### 5 7021-8 ####[facility]ORATORYCLIA [id number] [address] Lymphocytes/100 WBC (Bld) 9.0 % Normal [facility] Comment on above: Order Comment: Speci men Type: BLOOD SPECIMENOrdering Facility: [facility] Address: [address] [place] [address] Performed By: #### 5 7021-8 ####[facility] LABORATORYCLIA [id number] [address] MCH (RBC) [Entitic mass] 30.1 pg Normal 26.0-34.0 [facility] Comment on above: Order Comment: Speci men Type: BLOOD SPECIMENOrdering Facility: [facility] Address: [address] [place] [address] Performed By: #### 5 7021-8 ####[facility]ORATORYCLIA [id number] [address] STATES [facility] MCHC (RBC) [Mass/Vol] 30.9 g/dL Normal 30.5-36.0 [facility] Comment on above: Order Comment: Speci men Type: BLOOD SPECIMENOrdering Facility: [facility] Address: [address] [place] [address] Performed By: #### 5 7021-8 ####[facility]ORATORYCLIA [id number] [address] [place] MCV (RBC) [Entitic vol] 97.6 fL Normal 80.0-100.0 A [facility] Comment on above: Order Comment: Speci men Type: BLOOD SPECIMENOrdering Facility: [facility] Address: [address] [place] [address] Performed By: #### 5 7021-8 ####[facility]ORATORYCLIA [id number] [address] Metamyelocytes/100 WBC (Bld) 4.0 % Normal [facility] Comment on above: Order Comment: Speci men Type: BLOOD SPECIMENOrdering Facility: [facility] Address: [address] [place] [address] Performed By: #### 5 7021-8 ####[facility]ATORYCLIA [id number] [address] Monocytes (Bld) [#/Vol] 0.81 10*3/uL Normal <0.87 [facility] Comment on above: Order Comment: Speci men Type: BLOOD SPECIMENOrdering Facility: [facility] Address: [address] [place] [address] Performed By: #### 5 7021-8 ####[facility]ORATORYCLIA [id number] [address] Monocytes/100 WBC (Bld) 7.0 % Normal A [facility] Comment on above: Order Comment: Speci men Type: BLOOD SPECIMENOrdering Facility: [facility] Address: [address] [place] [address] Performed By: #### 5 7021-8 ####[facility]ATORYCLIA [id number] [address] MYELO% 1.0 % Normal [facility] Comment on above: Order Comment: Speci men Type: BLOOD SPECIMENOrdering Facility: [facility] Address: [address] [place] [address] Performed By: #### 5 7021-8 ####[facility]ORATORYCLIA [id number] [address] [place] Neutrophils (Bld) [#/Vol] 9.10 10*3/uL High 1.45-7.50 [facility] Comment on above: Order Comment: Speci men Type: BLOOD SPECIMENOrdering Facility: [facility] Address: [address] [place] [address] Performed By: #### 5 7021-8 ####[facility]ATORYCLIA [id number] [address] Neutrophils/100 WBC (Bld) 79.0 % Normal [facility] Comment on above: Order Comment: Speci men Type: BLOOD SPECIMENOrdering Facility: [facility] Address: [address] [place] [address] Performed By: #### 5 7021-8 ####[facility]ATORYCLIA [id number] [address] [place] Nucleated RBC (Bld) [#/Vol] 10*3/uL Normal <0.01 [facility] Comment on above: Order Comment: Speci men Type: BLOOD SPECIMENOrdering Facility: [facility] Address: [address] [place] [address] Result Comment: This result was previously suppressed from the chart. Performed By: #### 5 7021-8 ####[facility]ATORYCLIA [id number] [address] STATES [facility] Nucleated RBC/100 WBC (Bld) [Ratio] 0.0 /100 WBC Normal [facility] Comment on above: Order Comment: Speci men Type: BLOOD SPECIMENOrdering Facility: [facility] Address: [address] [place] [address] Performed By: #### 5 7021-8 ####[facility]ORATORYCLIA [id number] [address] [place] Platelet mean volume (Bld) [Entitic vol] 8.6 fL Low 9.0-12.7 [facility] Comment on above: Order Comment: Speci men Type: BLOOD SPECIMENOrdering Facility: [facility] Address: [address] [address] Performed By: #### 5 7021-8 ####[facility]ORATORYCLIA [id number] [address] [place] [facility] Platelets (Bld) [#/Vol] 408 10*3/uL High 150-400 [facility] Comment on above: Order Comment: Speci men Type: BLOOD SPECIMENOrdering Facility: [facility] Address: [address] [place] [address] Performed By: #### 5 7021-8 ####[facility]ATORYCLIA [id number] [address] Platelets Estimate (Bld) [#/Vol] Adequate Normal [facility] Comment on above: Order Comment: Speci men Type: BLOOD SPECIMENOrdering Facility: [facility] Address: [address] [place] [address] Performed By: #### 5 7021-8 ####[facility]ATORYCLIA [id number] [address] [place] Polychromasia LM Ql (Bld) Slight Normal [facility] Comment on above: Order Comment: Speci men Type: BLOOD SPECIMENOrdering Facility: [facility] Address: [address] [place] [address] Performed By: #### 5 7021-8 ####[facility]ATORYCLIA [id number] [address] [place] RBC (Bld) [#/Vol] 3.35 10*6/uL Low 3.90-5.20 [facility] Comment on above: Order Comment: Speci men Type: BLOOD SPECIMENOrdering Facility: [facility] Address: [address] [place] [address] Performed By: #### 5 7021-8 ####[facility]ATORYCLIA [id number] [address] [place] RED CELL MORPH Reviewed: see result s of individual morphologies Normal [facility] Comment on above: Order Comment: Speci men Type: BLOOD SPECIMENOrdering Facility: [facility] Address: [address] [place] [address] Performed By: #### 5 7021-8 ####[facility]ATORYCLIA [id number] [address] OF [place] WBC (Bld) [#/Vol] 11.52 10*3/uL High 3.70-11.00 [facility] Comment on above: Order Comment: Luhi men Type: BLOOD SPECIMENOrdering Facility: [facility] Address: [address] [place] [address] Performed By: #### 5 7021-8 ####[facility]ORATORYCLIA [id number] [address] [place] CONSULTon 10-16-2022 CONSULT Normal [facility] CONSULT Normal [facility] CONSULT PROGon 10-16-2022 CONSULT PROG Normal [facility] ECG COMPLETEon 10-16-2022 ECG COMPLETE Normal [facility] ED PROV NOTEon 10-16-2022 ED PROV NOTE Normal [facility] ED PROV NOTE Normal [facility] HIGH SENSITIVITY TROPONIN To n 10-16-2022 HIGH SENSITIVITY MARIE 103 ng/L High <12 [facility] Comment on above: Order Comment: Scott bozena Type: BLOOD SPECIMENOrdering Facility: [facility] Address: [address] [place] [address] Result Comment: When assessing risk for acute [...] day MACE. Performed By: #### H STNT ####[facility]ATORYCLIA [id number] [address] HIGH SENSITIVITY MARIE 112 ng/L High <12 [facility] Comment on above: Order Comment: Scott men Type: BLOOD SPECIMENOrdering Facility: [facility] Address: [address] [address] Result Comment: When assessing risk for acute [...] day MACE. Performed By: #### H STNT ####[facility]ATORYCLIA [id number] [address] HISTORY PHYSICALon HISTORY PHYSICAL Normal [facility] Magnesium SerPl-mCncon 10-16 Magnesium [Mass/Vol] 1.9 mg/dL Normal 1.7-2.3 [facility] Comment on above: Order Comment: Speci men Type: BLOOD SPECIMENOrdering Facility: [facility] Address: [address] [place] [address] Performed By: #### 2 4321-2, 75360-5, 20107-5, 84849-4, 3016-3 ####[facility]ATORYCLIA [id number] [address] NT[facility]BNP [facility]16 Natriuretic peptide.B prohormone N-Terminal [Mass/Vol] 503 pg/mL High <125 [facility] Comment on above: Order Comment: Speci men Type: BLOOD SPECIMENOrdering Facility: [facility] Address: [address] [place] [address] Performed By: #### 2 4321-2, 79587-9, 67522-6, 27835-1, 3016-3 ####[facility]ORATORYCLIA [id number] [address] PT EDon 10-16-2022 PT ED Normal [facility] PT panel Coag (PPP)on 2021 INR Coag (PPP) [Relative time] 1.0 {INR} Normal 0.9-1.3 [facility] Comment on above: Order Comment: Speci men Type: BLOOD SPECIMENOrdering Facility: [facility] Address: [address] [place], [place] [id number] Result Comment: Fatmata min K Antagonist (VKA) Therapeutic Range: INR 2 to 3 (Target INR of 2.5)Note: For patients treated with VKA drugs, such as warfarin, the [place] [employer] 2012 Guideline recommends [...] of 3).Miladys GH, et al. Chest 2012, 141:7S-47SNishearle RA, et al. [facility] 2017, 70: 252-289 Performed By: #### 3 4528-0, 14239-0 ####[facility]ORATORYCLIA [id number] [place] [address] [place] PT Coag (PPP) [Time] 10.4 s Normal 9.7-13.0 [facility] Comment on above: Order Comment: Scott seals Type: BLOOD SPECIMENOrdering Facility: [facility] Address: [address] [place], [place] [id number] Performed By: #### 3 4528-0, 37972-8 ####[facility]ATORYCLIA [id number] [address] [place] Procalcitonin SerPl-mCncon 1 12-17-2021 Procalcitonin [Mass/Vol] 0.09 ng/mL High <0.09 [facility] Comment on above: Order Comment: Scott seals Type: BLOOD SPECIMENOrdering Facility: [facility] Address: [address] [place], [place] [phone] Result Comment: For a guided interpretation of test results, please visit the Change in Procalcitonin Calculator, [email or web address]. Performed By: #### 2 4321-2, 75150-8, 83445-1, 56234-8, 3016-3 ####[facility]ATORYCLIA [id number] [address] [place] SARS-CoV-2 RNA Resp Ql IGGY+p robeon 10-16-2022 SARS-CoV-2 (COVID-19) RNA IGGY+probe Ql (Resp) COVID 19 RESULT: SARS-CoV-2 (Agent of COVID-19) Not Detected by RT-PCR or equivalent method. This test has been authorized by FDA under an Emergency Use Authorization (EUA). Normal [facility] Comment on above: Performed By: #### 9 4500-6 ####[facility]ORATORYCLIA [id number] [address] [place] TSH SerPl-aCncon 10-16-2022 TSH Qn 4.350 m[IU]/L High 0.270-4.200 [facility] Comment on above: Order Comment: Speci men Type: BLOOD SPECIMENOrdering Facility: [facility] Address: [address] [place] [address] Performed By: #### 2 4321-2, 43033-9, 11826-0, 71182-6, 6-3 ####[facility]ATORYCLIA [id number] [address] [place] US DVT LOWER BILon 2 US DVT LOWER CHERISE Normal [facility] Urinalysis complete panel (U )on 10-16-2022 Bacteria LM.HPF (Urine sed) [#/Area] Few Abnormal None Seen [facility] Comment on above: Order Comment: Speci men Type: URINE SPECIMENOrdering Facility: [facility] Address: [address] [place], [place] [phone] Performed By: #### 2 4356-8 ####[facility]ATORYCLIA [id number] [address] [place] Bilirubin Ql (U) Negative Normal Negative [facility] Comment on above: Order Comment: Speci men Type: URINE SPECIMENOrdering Facility: [facility] Address: [address] [place] [address] Performed By: #### 2 4356-8 ####[facility]ATORYCLIA [id number] [address] [place] Clarity (Unsp spec) Dense Turbid Abnormal Clear [facility] Comment on above: Order Comment: Speci men Type: URINE SPECIMENOrdering Facility: [facility] Address: [address] [place] [address] Performed By: #### 2 4356-8 ####[facility]ATORYCLIA [id number] [address] Color (U) Light [place] Abnormal yellow [facility] Comment on above: Order Comment: Speci men Type: URINE SPECIMENOrdering Facility: [facility] Address: [address] [place] [address] Performed By: #### 2 4356-8 ####[facility]ATORYCLIA [id number] [address] Epithelial cells LM.HPF (Urine sed) [#/Area] Few Normal [facility] Comment on above: Order Comment: Speci men Type: URINE SPECIMENOrdering Facility: [facility] Address: [address] [place] [address] Performed By: #### 2 4356-8 ####[facility]ATORYCLIA [id number] [address] Glucose Test strip (U) [Mass/Vol] Negative Normal Trace, Negative [facility] Comment on above: Order Comment: Speci men Type: URINE SPECIMENOrdering Facility: [facility] Address: [address] [place] [address] Performed By: #### 2 4356-8 ####[facility]ATORYCLIA [id number] [address] [place] Hemoglobin Ql (U) 3+ Abnormal Negative, Trace [facility] Comment on above: Order Comment: Speci men Type: URINE SPECIMENOrdering Facility: [facility] Address: [address] [place] [address] Performed By: #### 2 4356-8 ####[facility]ATORYCLIA [id number] [address] STATES [facility] Ketones Ql (U) Negative Normal Negative, Trace [facility] Comment on above: Order Comment: Speci men Type: URINE SPECIMENOrdering Facility: [facility] Address: [address] [place] [address] Performed By: #### 2 4356-8 ####[facility]ATORYCLIA [id number] [address] Leukocyte esterase Test strip Ql (U) 500 Ha/mL Abnormal Negative, 25 Ha/mL [facility] Comment on above: Order Comment: Speci men Type: URINE SPECIMENOrdering Facility: [facility] Address: [address] [place] [address] Performed By: #### 2 4356-8 ####[facility]ATORYCLIA [id number] [address] [place] [facility] Nitrite Ql (U) Negative Normal Negative [facility] Comment on above: Order Comment: Speci men Type: URINE SPECIMENOrdering Facility: [facility] Address: [address] [place] [address] Performed By: #### 2 4356-8 ####[facility]ATORYCLIA [id number] [address] [facility] pH (U) 7.0 [pH] Normal 5.0-8.0 [facility] Comment on above: Order Comment: Speci men Type: URINE SPECIMENOrdering Facility: [facility] Address: [address] [place] [address] Performed By: #### 2 4356-8 ####[facility]ORYCLIA [id number] [address] [place] Protein (U) [Mass/Vol] 1+ Abnormal Trace , Negative [facility] Comment on above: Order Comment: Speci men Type: URINE SPECIMENOrdering Facility: [facility] Address: [address] [place] [address] Performed By: #### 2 4356-8 ####[facility]ATORYCLIA [id number] [place] [address] [place] [facility] RBC LM.HPF (Urine sed) [#/Area] /[HPF] Abnormal 0-3 /HPF [facility] Comment on above: Order Comment: Speci men Type: URINE SPECIMENOrdering Facility: [facility] Address: [address] [place] [address] Performed By: #### 2 4356-8 ####[facility]ORYCLIA [id number] [address] Specific gravity (U) [Rel density] 1.010 Normal 1.005-1.030 [facility] Comment on above: Order Comment: Speci men Type: URINE SPECIMENOrdering Facility: [facility] Address: [address] [place] [address] Performed By: #### 2 4356-8 ####[facility]ORYCLIA [id number] [address] Urobilinogen Ql (U) Normal Normal Negative [facility] Comment on above: Order Comment: Speci men Type: URINE SPECIMENOrdering Facility: [facility] Address: [address] [place] [address] Performed By: #### 2 4356-8 ####[facility]ATORYCLIA [id number] [address] [place] [facility] WBC LM.HPF (Urine sed) [#/Area] /[HPF] Abnormal 0-5 /HPF [facility] Comment on above: Order Comment: Speci men Type: URINE SPECIMENOrdering Facility: [facility] Address: [address] [place] [address] Performed By: #### 2 4356-8 ####[facility]ORYCLIA [id number] [address] Yeast.budding LM.HPF (Urine sed) [#/Area] Moderate Abnormal None Seen [facility] Comment on above: Order Comment: Speci men Type: URINE SPECIMENOrdering Facility: [facility] Address: [address] [place] [address] Performed By: #### 2 4356-8 ####[facility]ORYCLIA [id number] [address] Urinalysis complete pnl Uron 10-16-2022 Urinalysis complete panel (U) Abnormal [facility] Comment on above: Order Comment: Speci men Type: URINE SPECIMENOrdering Facility: [facility] Address: [address] [place] [address] Performed By: #### 2 4356-8 ####[facility]ORYCLIA [id number] [address] XR CHEST 1V FRONTALon 2021 XR CHEST 1V FRONTAL Normal [facility] aPTT PPPon 10-16-2022 aPTT Coag (PPP) [Time] 24.5 s Normal 23.0-32.4 [facility] Comment on above: Order Comment: Speci men Type: BLOOD SPECIMENOrdering Facility: [facility] Address: [address] [place] [address] Performed By: #### 3 4528-0, 92479-0 ####[facility]ATORYCLIA [id number] [address] [place] ED NOTEon 10-15-2022 ED NOTE Normal [facility] CNPNon 10-03-2022 CNPN Normal [facility] CNPTOUTREACHon 09-25-2022 CNPTOUTREACH Normal [facility] CNPTOUTREACHon 09-15-2022 CNPTOUTREACH Normal [facility] CNPNon 09-11-2022 CNPN Normal [facility] CNPTOUTREACHon 09-08-2022 CNPTOUTREACH Normal [facility] CNPTOUTREACHon 09-05-2022 CNPTOUTREACH Normal [facility] CNPTOUTREACHon 09-01-2022 CNPTOUTREACH Normal [facility] CNNURSEon 08-30-2022 CNNURSE Normal [facility] CNPNon 08-30-2022 CNPN Normal [facility] CNPNon 08-29-2022 CNPN Normal [facility] CNPNon 08-28-2022 CNPN Normal [facility] CNPTOUTREACHon 08-28-2022 CNPTOUTREACH Normal [facility] Basic metabolic 2000 panelon 08-27-2022 Anion gap [Moles/Vol] 10 mmol/L Normal 9-18 [facility] Comment on above: Order Comment: Speci men Type: BLOOD SPECIMENOrdering Facility: [facility] Address: [address] [place] [address] Performed By: #### 2 4321-2 ####[facility]ATORYCLIA [id number] [place] [address] [place] Calcium [Mass/Vol] 8.9 mg/dL Normal 8.5-10.2 [facility] Comment on above: Order Comment: Speci men Type: BLOOD SPECIMENOrdering Facility: [facility] Address: [address] [place] [address] Performed By: #### 2 4321-2 ####[facility]ATORYCLIA [id number] [place] [address] [place] Chloride [Moles/Vol] 92 mmol/L Low 97-105 [facility] Comment on above: Order Comment: Speci men Type: BLOOD SPECIMENOrdering Facility: [facility] Address: [address] [place] [address] Performed By: #### 2 4321-2 ####[facility]ATORYCLIA [id number] [place] [address] [place] CO2 [Moles/Vol] 31 mmol/L High 22-30 [facility] Comment on above: Order Comment: Speci men Type: BLOOD SPECIMENOrdering Facility: [facility] Address: [address] [place] [address] Performed By: #### 2 4321-2 ####[facility]ENTERCLIA [id number] [address] STATES OF [facility] Creatinine [Mass/Vol] 1.50 mg/dL High 0.58-0.96 [facility] Comment on above: Order Comment: Scott bozena Type: BLOOD SPECIMENOrdering Facility: [facility] Address: [address] [address] Performed By: #### 2 4321-2 ####[facility]ORATORYCLIA [id number] [address] ESTIMATED GLOMERULAR FILTRATION RATE 39 mL/min/1.73m??? Low >=60 [facility] Comment on above: Order Comment: Scott seals Type: BLOOD SPECIMENOrdering Facility: [facility] Address: [address] [place] [address] Result Comment: Petra mated Glomerular Filtration Rate [...] actual GFR. Performed By: #### 2 4321-2 ####[facility]ATORYCLIA [id number] [address] [place] Glucose [Mass/Vol] 309 mg/dL High 74-99 [facility] Comment on above: Order Comment: Scott bozena Type: BLOOD SPECIMENOrdering Facility: [facility] Address: [address] [place] [address] Result Comment: The [place] [employer] (ADA) provides guidance for cutoff [...] Standards of Medical Care in Diabetes 2016, [place] [employer]. Diabetes Care. 2016.39(Suppl 1). Performed By: #### 2 4321-2 ####[facility]ATORYCLIA [id number] [address] STATES OF [facility] Potassium [Moles/Vol] 4.3 mmol/L Normal 3.7-5.1 [facility] Comment on above: Order Comment: Speci men Type: BLOOD SPECIMENOrdering Facility: [facility] Address: [address] [place] [address] Performed By: #### 2 1-2 ####[facility] [place] LABORATORYCLIA [id number] [address] Sodium [Moles/Vol] 133 mmol/L Low 136-144 [facility] Comment on above: Order Comment: Speci men Type: BLOOD SPECIMENOrdering Facility: [facility] Address: [address] [place] [address] Performed By: #### 2 1-2 ####[facility] [place] LABORATORYCLIA [id number] [address] Urea nitrogen [Mass/Vol] 53 mg/dL High 7-21 [facility] Comment on above: Order Comment: Speci men Type: BLOOD SPECIMENOrdering Facility: [facility] Address: [address] [place] [address] Performed By: #### 2 1-2 ####[facility] [place] [facility]ORATORYCLIA [id number] [address] [place] CASE MANAGEMon 08-27-2022 CASE MANAGEM Normal [facility] CNDSon 08-27-2022 CNDS Normal [facility] Bacteria Ur Culton 2 Bacteria identified Cx Nom (U) Abnormal [facility] Comment on above: Performed By: #### 6 30-4 ####[facility] [place] [facility]ORATORYCLIA [id number] [address] [facility] Basic metabolic 2000 panelon 08-26-2022 Anion gap [Moles/Vol] 10 mmol/L Normal 9-18 [facility] Comment on above: Order Comment: Speci men Type: BLOOD SPECIMENOrdering Facility: [facility] Address: [address] [place] [address] Performed By: #### 2 4321-2 ####[facility] LABORATORYCLIA [id number] [place] [address] [place] Calcium [Mass/Vol] 9.1 mg/dL Normal 8.5-10.2 [facility] Comment on above: Order Comment: Speci men Type: BLOOD SPECIMENOrdering Facility: [facility] Address: [address] [place] [address] Performed By: #### 2 4321-2 ####[facility] [place] [facility]ORATORYCLIA [id number] [address] [place] Chloride [Moles/Vol] 90 mmol/L Low 97-105 [facility] Comment on above: Order Comment: Speci men Type: BLOOD SPECIMENOrdering Facility: [facility] Address: [address] [place] [address] Performed By: #### 2 4321-2 ####[facility] [place] [facility]ORATORYCLIA [id number] [address] [place] CO2 [Moles/Vol] 31 mmol/L High 22-30 [facility] Comment on above: Order Comment: Speci men Type: BLOOD SPECIMENOrdering Facility: [facility] Address: [address] [address] Performed By: #### 2 4321-2 ####[facility] [place] [facility]ORATORYCLIA [id number] [place] [address] [place] Creatinine [Mass/Vol] 1.53 mg/dL High 0.58-0.96 [facility] Comment on above: Order Comment: Speci men Type: BLOOD SPECIMENOrdering Facility: [facility] Address: [address] [place] [address] Performed By: #### 2 4321-2 ####[facility] [place] [facility]ORATORYCLIA [id number] [place] [address] [place] ESTIMATED GLOMERULAR FILTRATION RATE 38 mL/min/1.73m??? Low >=60 [facility] Comment on above: Order Comment: [place] seals Type: BLOOD SPECIMENOrdering Facility: [facility] Address: [address] [place] [address] Result Comment: Petra mated Glomerular Filtration Rate [...] actual GFR. Performed By: #### 2 4321-2 ####[facility]S CENTERCLIA [id number] [place] [address] [place] Glucose [Mass/Vol] 337 mg/dL High 74-99 [facility] Comment on above: Order Comment: [place] seals Type: BLOOD SPECIMENOrdering Facility: [facility] Address: [address] [place] [address] Result Comment: The [place] [employer] (ADA) provides guidance for cutoff [...] Standards of Medical Care in Diabetes 2016, [place] [employer]. Diabetes Care. 2016.39(Suppl 1). Performed By: #### 2 4321-2 ####[facility] [place] [facility]ORATORYCLIA [id number] [place] [address] [place] Potassium [Moles/Vol] 4.7 mmol/L Normal 3.7-5.1 [facility] Comment on above: Order Comment: Speci men Type: BLOOD SPECIMENOrdering Facility: [facility] Address: [address] [place] [address] Performed By: #### 2 4321-2 ####[facility] [place] [facility]ORATORYCLIA [id number] [place] [address] [place] Sodium [Moles/Vol] 131 mmol/L Low 136-144 [facility] Comment on above: Order Comment: Speci men Type: BLOOD SPECIMENOrdering Facility: [facility] Address: [address] [place] [address] Performed By: #### 2 4321-2 ####[facility] [place] [facility]ORATORYCLIA [id number] [place] [address] [place] Urea nitrogen [Mass/Vol] 39 mg/dL High 7-21 [facility] Comment on above: Order Comment: Speci men Type: BLOOD SPECIMENOrdering Facility: [facility] Address: [address] [place] [address] Performed By: #### 2 4321-2 ####[facility] [place] [facility]ORATORYCLIA [id number] [address] [place] CNPNon 08-26-2022 CNPN Normal [facility] CONSULT PROGon 08-26-2022 CONSULT PROG Normal [facility] NURSING PROGon 08-26-2022 NURSING PROG Normal [facility] Urinalysis complete panel (U )on 08-26-2022 Bilirubin Ql (U) Negative Normal Negative [facility] Comment on above: Order Comment: Speci men Type: URINE SPECIMENOrdering Facility: [facility] Address: [address] [place] [address] Performed By: #### 2 4356-8 ####[facility] [place] [facility]ORATORYCLIA [id number] [address] [place] Clarity (Unsp spec) Clear Normal Clear [facility] Comment on above: Order Comment: Speci men Type: URINE SPECIMENOrdering Facility: [facility] Address: [address] [place] [address] Performed By: #### 2 4356-8 ####[facility] [place] [facility]ORATORYCLIA [id number] [address] [facility] Color (U) Yellow Normal yellow [facility] Comment on above: Order Comment: Speci men Type: URINE SPECIMENOrdering Facility: [facility] Address: [address] [place] [address] Performed By: #### 2 4356-8 ####[facility] [place] [facility]ORATORYCLIA [id number] [address] Epithelial cells LM.HPF (Urine sed) [#/Area] Few Normal [facility] Comment on above: Order Comment: Speci men Type: URINE SPECIMENOrdering Facility: [facility] Address: [address] [place] [address] Performed By: #### 2 4356-8 ####[facility] [place] [facility]ORATORYCLIA [id number] [address] [place] Glucose Test strip (U) [Mass/Vol] 4+ Abnormal Negative [facility] Comment on above: Order Comment: Speci men Type: URINE SPECIMENOrdering Facility: [facility] Address: [address] [place] [address] Performed By: #### 2 4356-8 ####[facility] [place] [facility]ORATORYCLIA [id number] [address] STATES [facility] Hemoglobin Ql (U) 2+ Abnormal Negative [facility] Comment on above: Order Comment: Speci men Type: URINE SPECIMENOrdering Facility: [facility] Address: [address] [place] [address] Performed By: #### 2 4356-8 ####[facility]ORATORYCLIA [id number] [address] Ketones Ql (U) Negative Normal Negative [facility] Comment on above: Order Comment: Speci men Type: URINE SPECIMENOrdering Facility: [facility] Address: [address] [place] [address] Performed By: #### 2 4356-8 ####[facility] [place] [facility]ORATORYCLIA [id number] [address] Leukocyte esterase Test strip Ql (U) 500 Ha/mL Abnormal Negative [facility] Comment on above: Order Comment: Speci men Type: URINE SPECIMENOrdering Facility: [facility] Address: [address] [place] [address] Performed By: #### 2 4356-8 ####[facility] [place] [facility]ORATORYCLIA [id number] [address] [place] [facility] Nitrite Ql (U) Negative Normal Negative [facility] Comment on above: Order Comment: Speci men Type: URINE SPECIMENOrdering Facility: [facility] Address: [address] [place] [address] Performed By: #### 2 4356-8 ####[facility] [place] [facility]ORATORYCLIA [id number] [address] [place] pH (U) 6.5 [pH] Normal 5.0-8.0 [facility] Comment on above: Order Comment: Speci men Type: URINE SPECIMENOrdering Facility: [facility] Address: [address] [place] [address] Performed By: #### 2 4356-8 ####[facility] [place] [facility]ORATORYCLIA [id number] [address] [place] [facility] Protein (U) [Mass/Vol] Trace Abnormal Negative [facility] Comment on above: Order Comment: Speci men Type: URINE SPECIMENOrdering Facility: [facility] Address: [address] [place] [address] Performed By: #### 2 4356-8 ####[facility] [place] [facility]ORATORYCLIA [id number] [address] RBC LM.HPF (Urine sed) [#/Area] 3-5 /HPF Abnormal 0-3 /HPF [facility] Comment on above: Order Comment: Speci men Type: URINE SPECIMENOrdering Facility: [facility] Address: [address] [place] [address] Performed By: #### 2 4356-8 ####[facility] [place] [facility]ORATORYCLIA [id number] [address] [place] [facility] Specific gravity (U) [Rel density] 1.019 Normal 1.005-1.030 [facility] Comment on above: Order Comment: Speci men Type: URINE SPECIMENOrdering Facility: [facility] Address: [address] [address] Performed By: #### 2 4356-8 ####[facility] [place] [facility]ORATORYCLIA [id number] [address] Urobilinogen Ql (U) Normal Normal Negative [facility] Comment on above: Order Comment: Speci men Type: URINE SPECIMENOrdering Facility: [facility] Address: [address] [address] Performed By: #### 2 4356-8 ####[facility] [place] [facility]ORATORYCLIA [id number] [address] [place] [facility] WBC LM.HPF (Urine sed) [#/Area] 6-10 /HPF Abnormal 0-5 /HPF [facility] Comment on above: Order Comment: Speci men Type: URINE SPECIMENOrdering Facility: [facility] Address: [address] [address] Performed By: #### 2 4356-8 ####[facility] [place] [facility]ORATORYCLIA [id number] [address] [place] Basic metabolic 2000 panelon 08-25-2022 Anion gap [Moles/Vol] 10 mmol/L Normal 9-18 [facility] Comment on above: Order Comment: Speci men Type: BLOOD SPECIMENOrdering Facility: [facility] Address: [address] [address] Performed By: #### 2 4321-2 ####[facility] [place] [facility]ORATORYCLIA [id number] [address] [place] Calcium [Mass/Vol] 8.7 mg/dL Normal 8.5-10.2 [facility] Comment on above: Order Comment: Speci men Type: BLOOD SPECIMENOrdering Facility: [facility] Address: [address] [place] [address] Performed By: #### 2 4321-2 ####[facility] [place] [facility]ORATORYCLIA [id number] [place] [address] [place] Chloride [Moles/Vol] 98 mmol/L Normal 97-105 [facility] Comment on above: Order Comment: Speci men Type: BLOOD SPECIMENOrdering Facility: [facility] Address: [address] [place] [address] Performed By: #### 2 4321-2 ####[facility] [place] [facility]ORATORYCLIA [id number] [place] [address] [place] CO2 [Moles/Vol] 31 mmol/L High 22-30 [facility] Comment on above: Order Comment: Speci men Type: BLOOD SPECIMENOrdering Facility: [facility] Address: [address] [place] [address] Performed By: #### 2 4321-2 ####[facility] [place] [facility]ORATORYCLIA [id number] [place] [address] [place] Creatinine [Mass/Vol] 1.76 mg/dL High 0.58-0.96 [facility] Comment on above: Order Comment: Speci men Type: BLOOD SPECIMENOrdering Facility: [facility] Address: [address] [place] [address] Performed By: #### 2 4321-2 ####[facility] [place] [facility]ORATORYCLIA [id number] [address] ESTIMATED GLOMERULAR FILTRATION RATE 32 mL/min/1.73m??? Low >=60 [facility] Comment on above: Order Comment: Speci men Type: BLOOD SPECIMENOrdering Facility: [facility] Address: [address] [place] [address] Result Comment: Petra mated Glomerular Filtration Rate [...] actual GFR. Performed By: #### 2 4321-2 ####[facility] [place] [facility]ORATORYCLIA [id number] [place] [address] [place] Glucose [Mass/Vol] 191 mg/dL High 74-99 [facility] Comment on above: Order Comment: Scott seals Type: BLOOD SPECIMENOrdering Facility: [facility] Address: [address] [address] Result Comment: The [place] [employer] (ADA) provides guidance for cutoff [...] Standards of Medical Care in Diabetes 2016, [place] [employer]. Diabetes Care. 2016.39(Suppl 1). Performed By: #### 2 4321-2 ####[facility] [place] [facility]ORATORYCLIA [id number] [place] [address] [place] Potassium [Moles/Vol] 4.4 mmol/L Normal 3.7-5.1 [facility] Comment on above: Order Comment: Scott seals Type: BLOOD SPECIMENOrdering Facility: [facility] Address: [address] [address] Performed By: #### 2 4321-2 ####[facility] [place] [facility]ORATORYCLIA [id number] [place] [address] [place] Sodium [Moles/Vol] 139 mmol/L Normal 136-144 [facility] Comment on above: Order Comment: Scott seals Type: BLOOD SPECIMENOrdering Facility: [facility] Address: [address] [address] Performed By: #### 2 4321-2 ####[facility] [place] [facility]ORATORYCLIA [id number] [place] [address] [place] Urea nitrogen [Mass/Vol] 31 mg/dL High 7-21 [facility] Comment on above: Order Comment: Speci men Type: BLOOD SPECIMENOrdering Facility: [facility] Address: [address] [place] [address] Performed By: #### 2 4321-2 ####[facility] [place] [facility]ORATORYCLIA [id number] [address] [place] CASE MANAGEMon 08-25-2022 CASE MANAGEM Normal [facility] CASE MANAGEM Normal [facility] CBC W Auto Differential pane l (Bld)on 08-25-2022 Anisocytosis Ql (Bld) Present Normal [facility] Comment on above: Order Comment: Speci men Type: BLOOD SPECIMENOrdering Facility: [facility] Address: [address] [place] [address] Performed By: #### 5 7021-8 ####[facility] [place] [facility]ORATORYCLIA [id number] [address] [facility] Basophils (Bld) [#/Vol] 0.00 10*3/uL Normal <0.11 [facility] Comment on above: Order Comment: Speci men Type: BLOOD SPECIMENOrdering Facility: [facility] Address: [address] [place] [address] Performed By: #### 5 7021-8 ####[facility] [place] [facility]ORATORYCLIA [id number] [address] [place] Basophils/100 WBC (Bld) 0.0 % Normal A [facility] Comment on above: Order Comment: Speci men Type: BLOOD SPECIMENOrdering Facility: [facility] Address: [address] [place] [address] Performed By: #### 5 7021-8 ####[facility] [place] [facility]ORATORYCLIA [id number] [place] [address] [place] Differential cell count method Nom (Bld) Manual Normal [facility] Comment on above: Order Comment: Speci men Type: BLOOD SPECIMENOrdering Facility: [facility] Address: [address] [place] [address] Performed By: #### 5 7021-8 ####[facility] [place] [facility]ORATORYCLIA [id number] [address] [facility] Eosinophils (Bld) [#/Vol] 0.44 10*3/uL Normal <0.46 [facility] Comment on above: Order Comment: Speci men Type: BLOOD SPECIMENOrdering Facility: [facility] Address: [address] [place] [address] Performed By: #### 5 7021-8 ####[facility] [place] [facility]ORATORYCLIA [id number] [address] Eosinophils/100 WBC (Bld) 6.0 % Normal [facility] Comment on above: Order Comment: Speci men Type: BLOOD SPECIMENOrdering Facility: [facility] Address: [address] [place] [address] Performed By: #### 5 7021-8 ####[facility] [place] [facility]ORATORYCLIA [id number] [address] Erythrocyte distribution width (RBC) [Ratio] 14.6 % Normal 11.5-15.0 [facility] Comment on above: Order Comment: Speci men Type: BLOOD SPECIMENOrdering Facility: [facility] Address: [address] [place] [address] Performed By: #### 5 7021-8 ####[facility] [place] [facility]ORATORYCLIA [id number] [address] Hematocrit (Bld) [Volume fraction] 31.7 % Low 36.0-46.0 [facility] Comment on above: Order Comment: Speci men Type: BLOOD SPECIMENOrdering Facility: [facility] Address: [address] [place] [address] Performed By: #### 5 7021-8 ####[facility]ORATORYCLIA [id number] [address] [place] Hemoglobin (Bld) [Mass/Vol] 9.7 g/dL Low 11.5-15.5 [facility] Comment on above: Order Comment: Speci men Type: BLOOD SPECIMENOrdering Facility: [facility] Address: [address] [place] [address] Performed By: #### 5 7021-8 ####[facility] [place] [facility]ATORYCLIA [id number] [address] [place] Lymphocytes (Bld) [#/Vol] 1.89 10*3/uL Normal 1.00-4.00 [facility] Comment on above: Order Comment: Speci men Type: BLOOD SPECIMENOrdering Facility: [facility] Address: [address] [place] [address] Performed By: #### 5 7021-8 ####[facility] [place] [facility]ATORYCLIA [id number] [address] Lymphocytes/100 WBC (Bld) 10.0 % Normal [facility] Comment on above: Order Comment: Speci men Type: BLOOD SPECIMENOrdering Facility: [facility] Address: [address] [place] [address] Performed By: #### 5 7021-8 ####[facility] [place]ORATORYCLIA [id number] [address] [place] MCH (RBC) [Entitic mass] 29.3 pg Normal 26.0-34.0 [facility] Comment on above: Order Comment: Speci men Type: BLOOD SPECIMENOrdering Facility: [facility] Address: [address] [place] [address] Performed By: #### 5 7021-8 ####[facility] [place]ATORYCLIA [id number] [address] [place] MCHC (RBC) [Mass/Vol] 30.6 g/dL Normal 30.5-36.0 [facility] Comment on above: Order Comment: Speci men Type: BLOOD SPECIMENOrdering Facility: [facility] Address: [address] [place] [address] Performed By: #### 5 7021-8 ####[facility] [place]ATORYCLIA [id number] [address] MCV (RBC) [Entitic vol] 95.8 fL Normal 80.0-100.0 A [facility] Comment on above: Order Comment: Speci men Type: BLOOD SPECIMENOrdering Facility: [facility] Address: [address] [place] [address] Performed By: #### 5 7021-8 ####[facility] [place]ATORYCLIA [id number] [address] [place] Monocytes (Bld) [#/Vol] 0.44 10*3/uL Normal <0.87 [facility] Comment on above: Order Comment: Speci men Type: BLOOD SPECIMENOrdering Facility: [facility] Address: [address] [place] [address] Performed By: #### 5 7021-8 ####[facility] [place]ATORYCLIA [id number] [address] Monocytes/100 WBC (Bld) 6.0 % Normal A [facility] Comment on above: Order Comment: Speci men Type: BLOOD SPECIMENOrdering Facility: [facility] Address: [address] [place] [address] Performed By: #### 5 7021-8 ####[facility]ATORYCLIA [id number] [address] [place] Neutrophils (Bld) [#/Vol] 4.51 10*3/uL Normal 1.45-7.50 [facility] Comment on above: Order Comment: Speci men Type: BLOOD SPECIMENOrdering Facility: [facility] Address: [address] [place] [address] Performed By: #### 5 7021-8 ####[facility] [place]ATORYCLIA [id number] [address] Neutrophils/100 WBC (Bld) 62.0 % Normal [facility] Comment on above: Order Comment: Speci men Type: BLOOD SPECIMENOrdering Facility: [facility] Address: [facility] [address] Performed By: #### 5 7021-8 ####[facility] [place]ORATORYCLIA [id number] [address] Nucleated RBC (Bld) [#/Vol] 10*3/uL Normal <0.01 [facility] Comment on above: Order Comment: Speci men Type: BLOOD SPECIMENOrdering Facility: [facility] Address: [address] [place] [address] Performed By: #### 5 7021-8 ####[facility] [place]ATORYCLIA [id number] [address] Nucleated RBC/100 WBC (Bld) [Ratio] 0.0 /100 WBC Normal [facility] Comment on above: Order Comment: Speci men Type: BLOOD SPECIMENOrdering Facility: [facility] Address: [address] [place] [address] Performed By: #### 5 7021-8 ####[facility] [place]ATORYCLIA [id number] [address] Ovalocytes LM Ql (Bld) Moderate Normal [facility] Comment on above: Order Comment: Speci men Type: BLOOD SPECIMENOrdering Facility: [facility] Address: [address] [place] [address] Performed By: #### 5 7021-8 ####[facility] [place]ORATORYCLIA [id number] [address] [place] [facility] Platelet mean volume (Bld) [Entitic vol] 8.2 fL Low 9.0-12.7 [facility] Comment on above: Order Comment: Speci men Type: BLOOD SPECIMENOrdering Facility: [facility] Address: [address] [place] [address] Performed By: #### 5 7021-8 ####[facility] [place]ATORYCLIA [id number] [address] [place] Platelets (Bld) [#/Vol] 292 10*3/uL Normal 150-400 [facility] Comment on above: Order Comment: Speci men Type: BLOOD SPECIMENOrdering Facility: [facility] Address: [address] [address] Performed By: #### 5 7021-8 ####[facility]ATORYCLIA [id number] [address] Platelets Estimate (Bld) [#/Vol] Adequate Normal [facility] Comment on above: Order Comment: Speci men Type: BLOOD SPECIMENOrdering Facility: [facility] Address: [address] [place] [address] Performed By: #### 5 7021-8 ####[facility] [place] LABORATORYCLIA [id number] [address] Polychromasia LM Ql (Bld) Slight Normal [facility] Comment on above: Order Comment: Speci men Type: BLOOD SPECIMENOrdering Facility: [facility] Address: [address] [address] Performed By: #### 5 7021-8 ####[facility] [place] LABORATORYCLIA [id number] [address] OF [place] RBC (Bld) [#/Vol] 3.31 10*6/uL Low 3.90-5.20 [facility] Comment on above: Order Comment: Speci men Type: BLOOD SPECIMENOrdering Facility: [facility] Address: [address] [address] Performed By: #### 5 7021-8 ####[facility] [place] LABORATORYCLIA [id number] [address] RED CELL MORPH Reviewed Normal [facility] Comment on above: Order Comment: Speci men Type: BLOOD SPECIMENOrdering Facility: [facility] Address: [facility] [address] Performed By: #### 5 7021-8 ####[facility] [place] LABORATORYCLIA [id number] [address] STATES OF [facility] Variant lymphocytes/100 WBC (Bld) 16.0 % Normal [facility] Comment on above: Order Comment: Speci men Type: BLOOD SPECIMENOrdering Facility: [facility] Address: [address] [place] [address] Performed By: #### 5 7021-8 ####[facility] [place] LABORATORYCLIA [id number] [address] WBC (Bld) [#/Vol] 7.27 10*3/uL Normal 3.70-11.00 [facility] Comment on above: Order Comment: Speci men Type: BLOOD SPECIMENOrdering Facility: [facility] Address: [address] [place] [address] Performed By: #### 5 7021-8 ####[facility] [place] LABORATORYCLIA [id number] [address] CONSULTon 08-25-2022 CONSULT Normal [facility] CONSULT PROGon 08-25-2022 CONSULT PROG Normal [facility] SURGICAL PATHOLOGYon 022 CASE REPORT Normal [facility] Comment on above: Order Comment: Speci men Type: TISSUE SPECIMENOrdering Facility: [facility] Address: [address] [place] [address] Result Comment: Surg ical Pathology Report Case: [id number] Provider: Zully Damian DO Collected: 08/25/2022 03:28 AMOrdering Location: [address] Received: 08/25/2022 01:15 PMPathologist: ARIEL Llanospecimens: A) - SKIN PUNCH EXCISION B) - SKIN DIF Performed By: #### S ####[facility] LABCLIA [id number] [facility] [id number] STATES [facility] LABORATORYCLIA [id number] [address] STATES OF [facility] CLINICAL HISTORY bullous rash Normal [facility] Comment on above: Order Comment: Speci men Type: TISSUE SPECIMENOrdering Facility: [facility] Address: [address] [address] Performed By: #### S ####[facility] LABCLIA [id number] [address] LABORATORYCLIA [id number] [address] DIAGNOSIS COMMENT Normal [facility] Comment on above: Order Comment: Speci men Type: TISSUE SPECIMENOrdering Facility: [facility] Address: [address] [address] Result Comment: A. H istologic sections demonstrate [...] been determined by the performing laboratory within [facility]???s [facility] Pathology and Laboratory Medicine [place] ([facility], [facility], [facility] or [facility]) in a manner consistent with CLIA requirements. One or more of these tests have not been cleared or approved by the FDA. [facility] is regulated under CLIA as qualified to perform high-complexity testing. These tests are used for clinical purposes. They should not be regarded as investigational or for research. Positive and negative controls stain appropriately. Performed By: #### S ####[facility] LABCLIA [id number] [address] LABORATORYCLIA [id number] [address] FINAL DIAGNOSIS Normal [facility] Comment on above: Order Comment: Speci men Type: TISSUE SPECIMENOrdering Facility: [facility] Address: [address] [place] [address] Result Comment: A. S kin, left upper arm, punch excision:-Full-thickness epidermal ulcer, see comment.B. Skin, left upper arm, punch biopsy (DIF):-Positive direct immunofluorescence, see comment.DINA/MOI 08/28/2022 Performed By: #### S ####[facility] LABCLIA [id number] [address] LABORATORYCLIA [id number] [place] [address] FINAL PERFORMING LAB Normal [facility] Comment on above: Order Comment: Speci men Type: TISSUE SPECIMENOrdering Facility: [facility] Address: [address] [place] [address] Result Comment: Diag nostic interpretation performed at [facility], [address] [address] CLIA# [id number] Director: Jose Saleem M.D. Performed By: #### S ####[facility] LABCLIA [id number] [address] LABORATORYCLIA [id number] [address] GROSS DESCRIPTION Normal [facility] Comment on above: Order Comment: Speci men Type: TISSUE SPECIMENOrdering Facility: [facility] Address: [address] [place] [address] Result Comment: A. S KIN PUNCH EXCISIONReceived [...] frozen for Direct Immunofluorescence.Gross examination performed at [address] [id number] 08/25/2022 6:11 PM Performed By: #### S ####[facility] LABCLIA [id number] [address] LAB[facility]ORYVERMONT [facility] [id number] [place] [address] OF [place] CASE REPORT Normal [facility] Comment on above: Order Comment: Speci men Type: TISSUE SPECIMENOrdering Facility: [facility] Address: [address] [place] [address] Result Comment: Surg [facility] Pathology Report Case: [id number] Provider: Zully Damian DO Collected: 08/25/2022 03:28 AMOrdering Location: [address] Received: 08/25/2022 01:15 PMPathologist: ARIEL Llanospecimens: A) - SKIN PUNCH EXCISION B) - SKIN DIF Performed By: #### S ####[facility] LABCLIA [id number] [address] LABORATORYIA [id number] [place] [address] OF [place] CLINICAL HISTORY bullous rash Normal [facility] Comment on above: Order Comment: Speci men Type: TISSUE SPECIMENOrdering Facility: [facility] Address: [address] [place], [place] [address] Performed By: #### S ####[facility] LABCLIA [id number] [address] LABORATORYIA [id number] [place] [address] OF [place] DIAGNOSIS COMMENT Normal [facility] Comment on above: Order Comment: Speci men Type: TISSUE SPECIMENOrdering Facility: [facility] Address: [address] [place] [address] Result Comment: A. H istologic sections demonstrate [...] been determined by the performing laboratory within [facility]???s [facility] Pathology and Laboratory Medicine [place] ([facility], [facility], [facility] or [facility]) in a manner consistent with CLIA requirements. One or more of these tests have not been cleared or approved by the FDA. [facility] is regulated under CLIA as qualified to perform high-complexity testing. These tests are used for clinical purposes. They should not be regarded as investigational or for research. Positive and negative controls stain appropriately. Performed By: #### S ####[facility] LABCLIA [id number] [address] LABORATORYCLIA [id number] [address] FINAL DIAGNOSIS Normal [facility] Comment on above: Order Comment: Speci men Type: TISSUE SPECIMENOrdering Facility: [facility] Address: [address] [place] [address] Result Comment: A. S kin, left upper arm, punch excision:-Full-thickness epidermal ulcer, see comment.B. Skin, left upper arm, punch biopsy (DIF):-Positive direct immunofluorescence, see comment.DINA/MOI 08/28/2022 Performed By: #### S ####[facility] LABCLIA [id number] [address] GENERAL LABORATORYCLIA [id number] [address] FINAL PERFORMING LAB Normal [facility] Comment on above: Order Comment: Speci men Type: TISSUE SPECIMENOrdering Facility: [facility] Address: [address] [place] [address] Result Comment: Diag nostic interpretation performed at [facility], [facility] [address] CLIA# [id number] Director: Jose Saleem M.D. Performed By: #### S ####[facility] LABCLIA [id number] [address] [id number] [address] GROSS DESCRIPTION Normal [facility] Comment on above: Order Comment: Speci men Type: TISSUE SPECIMENOrdering Facility: [facility] Address: [address] [place] [address] Result Comment: A. S KIN PUNCH EXCISIONReceived [...] frozen for Direct Immunofluorescence.Gross examination performed at [facility], [address] [place], [place] [address]YXQ 08/25/2022 6:11 PM Performed By: #### S ####[facility] LABCLIA [id number] [address] LABORATORYCLIA [id number] [address] OF [place] Basic metabolic 2000 panelon 08-24-2022 Anion gap [Moles/Vol] 6 mmol/L Low 9-18 [facility] Comment on above: Order Comment: Speci men Type: BLOOD SPECIMENOrdering Facility: [facility] Address: [address] [place] [address] Performed By: #### 2 4321-2 ####[facility] LABORATORYCLIA [id number] [place] [address] [place] Calcium [Mass/Vol] 8.9 mg/dL Normal 8.5-10.2 [facility] Comment on above: Order Comment: Speci men Type: BLOOD SPECIMENOrdering Facility: [facility] Address: [address] [place] [address] Performed By: #### 2 4321-2 ####[facility] [place] LABORATORYCLIA [id number] [place] [address] [place] Chloride [Moles/Vol] 97 mmol/L Normal 97-105 [facility] Comment on above: Order Comment: Speci men Type: BLOOD SPECIMENOrdering Facility: [facility] Address: [address] [place] [address] Performed By: #### 2 4321-2 ####[facility] LABORATORYCLIA [id number] [place] [address] [place] CO2 [Moles/Vol] 32 mmol/L High 22-30 [facility] Comment on above: Order Comment: Speci men Type: BLOOD SPECIMENOrdering Facility: [facility] Address: [address] [place] [address] Performed By: #### 2 4321-2 ####[facility] LABORATORYCLIA [id number] [place] [address] [place] Creatinine [Mass/Vol] 1.48 mg/dL High 0.58-0.96 [facility] Comment on above: Order Comment: Speci men Type: BLOOD SPECIMENOrdering Facility: [facility] Address: [address] [place] [address] Performed By: #### 2 4321-2 ####[facility] [place] [facility]ORATORYCLIA [id number] [place] [address] [place] ESTIMATED GLOMERULAR FILTRATION RATE 39 mL/min/1.73m??? Low >=60 [facility] Comment on above: Order Comment: Scott seals Type: BLOOD SPECIMENOrdering Facility: [facility] Address: [address] [place] [address] Result Comment: Petra mated Glomerular Filtration Rate [...] actual GFR. Performed By: #### 2 4321-2 ####[facility] HOSPITALIA [id number] [place] [address] [place] Glucose [Mass/Vol] 122 mg/dL High 74-99 [facility] Comment on above: Order Comment: Spectalia seals Type: BLOOD SPECIMENOrdering Facility: [facility] Address: [address] [place] [address] Result Comment: The [place] Diabetes Association (ADA) provides guidance for cutoff [...] Standards of Medical Care in Diabetes 2016, [place] [employer]. Diabetes Care. 2016.39(Suppl 1). Performed By: #### 2 4321-2 ####[facility] [place] [facility]ORATORYCLIA [id number] [place] [id number] [place] Potassium [Moles/Vol] 4.3 mmol/L Normal 3.7-5.1 [facility] Comment on above: Order Comment: Speci men Type: BLOOD SPECIMENOrdering Facility: [facility] Address: [address] [place] [address] Performed By: #### 2 4321-2 ####[facility] [place] [facility]ORATORYCLIA [id number] [address] STATES OF [place] Sodium [Moles/Vol] 135 mmol/L Low 136-144 [facility] Comment on above: Order Comment: Speci men Type: BLOOD SPECIMENOrdering Facility: [facility] Address: [address] [place] [address] Performed By: #### 2 4321-2 ####[facility] [place] LABORATORYCLIA [id number] [address] STATES OF [facility] Urea nitrogen [Mass/Vol] 27 mg/dL High 7-21 [facility] Comment on above: Order Comment: Speci men Type: BLOOD SPECIMENOrdering Facility: [facility] Address: [address] [place] [address] Performed By: #### 2 4321-2 ####[facility] [place] [facility]ORATORYCLIA [id number] [address] OF [facility] CONSULT PROGon 08-24-2022 CONSULT PROG Normal [facility] Chloride Unsp time (U) [Mole s/Vol]on 08-24-2022 Chloride (U) [Moles/Vol] 120 mmol/L Normal 16-250 [facility] Comment on above: Order Comment: Speci men Type: URINE SPECIMENOrdering Facility: [facility] Address: [address] [place] [address] Performed By: #### 3 5676-6, 92665-1, 89634-7, UUNR ####[facility] [place] [facility]ORATORYCLIA [id number] [address] STATES OF [place] Creatinine Unsp time (U) [Ma ss/Vol]on 08-24-2022 Creatinine (U) [Mass/Vol] 58.8 mg/dL Normal 42.2-237.9 [facility] Comment on above: Order Comment: Speci men Type: URINE SPECIMENOrdering Facility: [facility] Address: [address] [place] [address] Performed By: #### 3 5676-6, 32946-7, 59467-1, UUNR ####[facility] [place]ORATORYCLIA [id number] [place] [address] [place] Osmolality Uron 08-24-2022 Osmolality (U) [Osmolality] 429 mosm/kg Normal 50-1200 [facility] Comment on above: Order Comment: Speci men Type: URINE SPECIMENOrdering Facility: [facility] Address: [address] [place] [address] Performed By: #### 2 695-5 ####[facility]'S CENTERCLIA [id number] [place] [address] [place] Sodium ?Tm Ur-sCncon 022 Sodium Unsp time (U) [Moles/Vol] 140 mmol/L Normal 14-216 [facility] Comment on above: Order Comment: Speci men Type: URINE SPECIMENOrdering Facility: [facility] Address: [address] [place] [address] Performed By: #### 3 5676-6, 71317-5, 08550-3, UUNR ####[facility] [place]ORATORYCLIA [id number] [place] [address] [place] UREA NITROGEN RND URon 08-24 Urea nitrogen [Mass/Vol] 366 mg/dL Normal 140-1500 [facility] Comment on above: Order Comment: Speci men Type: URINE SPECIMENOrdering Facility: [facility] Address: [address] [place] [address] Performed By: #### 3 5676-6, 19730-3, 21650-0, UUNR ####[facility] [place] [facility]ORATORYCLIA [id number] [place] [address] [place] 25(OH)D3 [facility] 2021 25-hydroxyvitamin D3 [Mass/Vol] 8.5 ng/mL Low >=30.0 [facility] Comment on above: Order Comment: Speci men Type: BLOOD SPECIMENOrdering Facility: [facility] Address: [address] [address] Result Comment: Clas sification of 25 [place] Vitamin D status:Deficiency: <= 20.0 ng/ml.Insufficiency: 21.0-29.0 ng/ml.Sufficiency: >= 30.0 ng/ml. Performed By: #### 1 989-3 ####[facility] [place]ORATORYCLIA [id number] [place] [address] [place] Bacteria Ur Culton 2 Bacteria identified Cx Nom (U) Abnormal [facility] Comment on above: Performed By: #### 5 0545-3, VZMIC ####[facility] LABCLIA [id number] [address] STATES OF [place]#### 630-4 ####[facility] [place] LABORATORYCLIA [id number] [address] STATES OF [place] Bacterial susceptibility dasilva el ASHU (Isol)on 08-23-2022 CULTURE, ORGANISM ASHU RESULT [id number] Abnormal [facility] Comment on above: Order Comment: Speci men Type: URINE SPECIMENOrdering Facility: [facility] Address: [address] [address] Result Comment: Kleb siella oxytocaIdentification performed by client. Performed By: #### 5 0545-3, VZMIC ####[facility] LABCLIA [id number] [address] STATES OF [place]#### 630-4 ####[facility] [place] [facility]ORATORYCLIA [id number] [place] [address] [place] CASE MGT INIT ASSESon 2021 CASE MGT INIT ASSES Normal [facility] CBC W Auto Differential pane l (Bld)on 08-23-2022 Basophils (Bld) [#/Vol] 0.04 10*3/uL Normal <0.11 [facility] Comment on above: Order Comment: Speci men Type: BLOOD SPECIMENOrdering Facility: [facility] Address: [address] [place] [address] Result Comment: Diff erential confirmed by visual scan of peripheral blood smear slide Performed By: #### 5 7021-8 ####[facility]ORATORYCLIA [id number] [address] STATES OF [place] Basophils/100 WBC (Bld) 0.6 % Normal A [facility] Comment on above: Order Comment: Speci men Type: BLOOD SPECIMENOrdering Facility: [facility] Address: [address] [place] [address] Performed By: #### 5 7021-8 ####[facility] LABORATORYCLIA [id number] [address] STATES OF [place] Differential cell count method Nom (Bld) Auto Normal [facility] Comment on above: Order Comment: Speci men Type: BLOOD SPECIMENOrdering Facility: [facility] Address: [address] [place] [address] Performed By: #### 5 7021-8 ####[facility]ORATORYCLIA [id number] [place] [address] [place] Eosinophils (Bld) [#/Vol] 0.39 10*3/uL Normal <0.46 [facility] Comment on above: Order Comment: Speci men Type: BLOOD SPECIMENOrdering Facility: [facility] Address: [address] [place] [address] Performed By: #### 5 7021-8 ####[facility]ORATORYCLIA [id number] [address] STATES OF [place] Eosinophils/100 WBC (Bld) 5.4 % Normal [facility] Comment on above: Order Comment: Speci men Type: BLOOD SPECIMENOrdering Facility: [facility] Address: [address] [place] [address] Performed By: #### 5 7021-8 ####[facility]ORATORYCLIA [id number] [address] [facility] Erythrocyte distribution width (RBC) [Ratio] 14.8 % Normal 11.5-15.0 [facility] Comment on above: Order Comment: Speci men Type: BLOOD SPECIMENOrdering Facility: [facility] Address: [address] [place] [address] Performed By: #### 5 7021-8 ####[facility]ORATORYCLIA [id number] [address] OF [place] Hematocrit (Bld) [Volume fraction] 29.0 % Low 36.0-46.0 [facility] Comment on above: Order Comment: Speci men Type: BLOOD SPECIMENOrdering Facility: [facility] Address: [address] [place] [address] Performed By: #### 5 7021-8 ####[facility]ORATORYCLIA [id number] [address] STATES [place] Hemoglobin (Bld) [Mass/Vol] 8.8 g/dL Low 11.5-15.5 [facility] Comment on above: Order Comment: Speci men Type: BLOOD SPECIMENOrdering Facility: [facility] Address: [address] [place] [address] Performed By: #### 5 7021-8 ####[facility]ORATORYCLIA [id number] [address] OF [place] Immature granulocytes (Bld) [#/Vol] 0.29 10*3/uL High <0.10 [facility] Comment on above: Order Comment: Speci men Type: BLOOD SPECIMENOrdering Facility: [facility] Address: [address] [place] [address] Performed By: #### 5 7021-8 ####[facility]ORATORYCLIA [id number] [address] Immature granulocytes/100 WBC (Bld) 4.0 % Normal [facility] Comment on above: Order Comment: Speci men Type: BLOOD SPECIMENOrdering Facility: [facility] Address: [address] [address] Performed By: #### 5 7021-8 ####[facility]ORATORYCLIA [id number] [address] [facility] Lymphocytes (Bld) [#/Vol] 1.32 10*3/uL Normal 1.00-4.00 [facility] Comment on above: Order Comment: Speci men Type: BLOOD SPECIMENOrdering Facility: [facility] Address: [address] [place] [address] Performed By: #### 5 7021-8 ####[facility]ORATORYCLIA [id number] [address] Lymphocytes/100 WBC (Bld) 18.4 % Normal [facility] Comment on above: Order Comment: Speci men Type: BLOOD SPECIMENOrdering Facility: [facility] Address: [address] [place] [address] Performed By: #### 5 7021-8 ####[facility]ORATORYCLIA [id number] [address] STATES OF [facility] MCH (RBC) [Entitic mass] 29.2 pg Normal 26.0-34.0 [facility] Comment on above: Order Comment: Speci men Type: BLOOD SPECIMENOrdering Facility: [facility] Address: [address] [place] [address] Performed By: #### 5 7021-8 ####[facility]ORATORYCLIA [id number] [address] [place] MCHC (RBC) [Mass/Vol] 30.3 g/dL Low 30.5-36.0 [facility] Comment on above: Order Comment: Speci men Type: BLOOD SPECIMENOrdering Facility: [facility] Address: [address] [place] [address] Performed By: #### 5 7021-8 ####[facility]ORATORYCLIA [id number] [address] OF [place] MCV (RBC) [Entitic vol] 96.3 fL Normal 80.0-100.0 A [facility] Comment on above: Order Comment: Speci men Type: BLOOD SPECIMENOrdering Facility: [facility] Address: [address] [place] [address] Performed By: #### 5 7021-8 ####[facility]ORATORYCLIA [id number] [address] [place] Monocytes (Bld) [#/Vol] 0.58 10*3/uL Normal <0.87 [facility] Comment on above: Order Comment: Speci men Type: BLOOD SPECIMENOrdering Facility: [facility] Address: [address] [place] [address] Performed By: #### 5 7021-8 ####[facility]ORATORYCLIA [id number] [place] [address] [place] Monocytes/100 WBC (Bld) 8.1 % Normal A [facility] Comment on above: Order Comment: Speci men Type: BLOOD SPECIMENOrdering Facility: [facility] Address: [address] [place] [address] Performed By: #### 5 7021-8 ####[facility]ORATORYCLIA [id number] [place] [address] [place] Neutrophils (Bld) [#/Vol] 4.57 10*3/uL Normal 1.45-7.50 [facility] Comment on above: Order Comment: Speci men Type: BLOOD SPECIMENOrdering Facility: [facility] Address: [address] [place] [address] Performed By: #### 5 7021-8 ####[facility]ORATORYCLIA [id number] [place] [address] [place] Neutrophils/100 WBC (Bld) 63.5 % Normal [facility] Comment on above: Order Comment: Speci men Type: BLOOD SPECIMENOrdering Facility: [facility] Address: [address] [place] [address] Performed By: #### 5 7021-8 ####[facility]ORATORYCLIA [id number] [address] [place] Nucleated RBC (Bld) [#/Vol] 10*3/uL Normal <0.01 [facility] Comment on above: Order Comment: Speci men Type: BLOOD SPECIMENOrdering Facility: [facility] Address: [address] [place] [address] Performed By: #### 5 7021-8 ####[facility]ORATORYCLIA [id number] [address] [place] Nucleated RBC/100 WBC (Bld) [Ratio] 0.0 /100 WBC Normal [facility] Comment on above: Order Comment: Speci men Type: BLOOD SPECIMENOrdering Facility: [facility] Address: [address] [place] [address] Performed By: #### 5 7021-8 ####[facility]ORATORYCLIA [id number] [address] [place] Platelet mean volume (Bld) [Entitic vol] 8.2 fL Low 9.0-12.7 [facility] Comment on above: Order Comment: Speci men Type: BLOOD SPECIMENOrdering Facility: [facility] Address: [address] [place] [address] Performed By: #### 5 7021-8 ####[facility]ORATORYCLIA [id number] [address] [place] Platelets (Bld) [#/Vol] 282 10*3/uL Normal 150-400 [facility] Comment on above: Order Comment: Speci men Type: BLOOD SPECIMENOrdering Facility: [facility] Address: [address] [place] [address] Performed By: #### 5 7021-8 ####[facility]ORATORYCLIA [id number] [address] [place] RBC (Bld) [#/Vol] 3.01 10*6/uL Low 3.90-5.20 [facility] Comment on above: Order Comment: Speci men Type: BLOOD SPECIMENOrdering Facility: [facility] Address: [address] [place] [address] Performed By: #### 5 7021-8 ####[facility]ORATORYCLIA [id number] [address] STATES OF [facility] WBC (Bld) [#/Vol] 7.19 10*3/uL Normal 3.70-11.00 [facility] Comment on above: Order Comment: Speci men Type: BLOOD SPECIMENOrdering Facility: [facility] Address: [address] [place] [address] Performed By: #### 5 7021-8 ####[facility]ORATORYCLIA [id number] [address] CNPNon 08-23-2022 CNPN Normal [facility] CONSULTon 08-23-2022 CONSULT Normal [facility] CONSULT Normal [facility] CONSULT PROGon 08-23-2022 CONSULT PROG Normal [facility] CONSULT PROG Normal [facility] Comprehensive metabolic 2000 panelon 08-23-2022 Albumin [Mass/Vol] 3.1 g/dL Low 3.9-4.9 [facility] Comment on above: Order Comment: Speci men Type: BLOOD SPECIMENOrdering Facility: [facility] Address: [address] [place] [address] Performed By: #### 2 4323-8, 20996-1, 2275-4, 42970-2 ####[facility]ORATORYCLIA [id number] [address] ALP [Catalytic activity/Vol] 71 U/L Normal 34-123 [facility] Comment on above: Order Comment: Speci men Type: BLOOD SPECIMENOrdering Facility: [facility] Address: [address] [place] [address] Performed By: #### 2 4323-8, 59350-1, 2275-4, 10585-5 ####[facility]ORATORYCLIA [id number] [address] [place] ALT With P-5'-P [Catalytic activity/Vol] 8 U/L Normal 7-38 [facility] Comment on above: Order Comment: Speci men Type: BLOOD SPECIMENOrdering Facility: [facility] Address: [address] [place] [address] Performed By: #### 2 4323-8, 45727-3, 6-4, 08210-7 ####[facility]ORATORYCLIA [id number] [place] [address] [place] [facility] Anion gap [Moles/Vol] 8 mmol/L Low 9-18 [facility] Comment on above: Order Comment: Speci men Type: BLOOD SPECIMENOrdering Facility: [facility] Address: [address] [place] [address] Performed By: #### 2 4323-8, 56998-7, 2275-4, 22933-7 ####[facility]ORATORYCLIA [id number] [address] STATES OF [facility] AST With P-5'-P [Catalytic activity/Vol] 9 U/L Low 13-35 [facility] Comment on above: Order Comment: Speci men Type: BLOOD SPECIMENOrdering Facility: [facility] Address: [address] [place] [address] Performed By: #### 2 4323-8, 41738-4, 2275-4, 62936-1 ####[facility]ORATORYCLIA [id number] [place] [address] [place] Bilirubin [Mass/Vol] 0.2 mg/dL Normal 0.2-1.3 [facility] Comment on above: Order Comment: Speci men Type: BLOOD SPECIMENOrdering Facility: [facility] Address: [address] [place] [address] Performed By: #### 2 4323-8, 68080-1, 2275-4, 56601-4 ####[facility]ORATORYCLIA [id number] [place] [address] [place] Calcium [Mass/Vol] 8.9 mg/dL Normal 8.5-10.2 [facility] Comment on above: Order Comment: Speci men Type: BLOOD SPECIMENOrdering Facility: [facility] Address: [address] [place] [address] Performed By: #### 2 4323-8, 19388-0, 2275-4, 94750-0 ####[facility]ORATORYCLIA [id number] [place] [address] [place] Chloride [Moles/Vol] 100 mmol/L Normal 97-105 [facility] Comment on above: Order Comment: Speci men Type: BLOOD SPECIMENOrdering Facility: [facility] Address: [address] [place] [address] Performed By: #### 2 4323-8, 17724-1, 4, 17018-2 ####[facility]ORATORYCLIA [id number] [place] [address] [place] CO2 [Moles/Vol] 32 mmol/L High 22-30 [facility] Comment on above: Order Comment: Speci men Type: BLOOD SPECIMENOrdering Facility: [facility] Address: [address] [place] [address] Performed By: #### 2 4323-8, 74161-9, 2276-01, 15359-4 ####[facility]ORATORYCLIA [id number] [address] [place] Creatinine [Mass/Vol] 1.36 mg/dL High 0.58-0.96 [facility] Comment on above: Order Comment: Speci men Type: BLOOD SPECIMENOrdering Facility: [facility] Address: [address] [place] [address] Performed By: #### 2 4323-8, 19058-3, 2276-01, 00494-0 ####[facility]ORATORYCLIA [id number] [place] [id number] [place] ESTIMATED GLOMERULAR FILTRATION RATE 43 mL/min/1.73m??? Low >=60 [facility] Comment on above: Order Comment: Speci men Type: BLOOD SPECIMENOrdering Facility: [facility] Address: [address] [place] [address] Result Comment: Petra mated Glomerular Filtration Rate [...] actual GFR. Performed By: #### 2 4323-8, 47644-3, 6-4, 79494-0 ####[facility] CENTERCLIA [id number] [place] [address] [place] Glucose [Mass/Vol] 158 mg/dL High 74-99 [facility] Comment on above: Order Comment: Scott seals Type: BLOOD SPECIMENOrdering Facility: [facility] Address: [address] [place], [place] [address] Result Comment: The [place] [employer] Association (ADA) provides guidance for cutoff [...] Standards of Medical Care in Diabetes 2016, [place] [employer]. Diabetes Care. 2016.39(Suppl 1). Performed By: #### 2 4323-8, 00315-0, 6-4, 05332-0 ####[facility]ORATORYCLIA [id number] [place] [address] [place] Potassium [Moles/Vol] 4.2 mmol/L Normal 3.7-5.1 [facility] Comment on above: Order Comment: Scott seals Type: BLOOD SPECIMENOrdering Facility: [facility] Address: [address] [place] [place] [address] Performed By: #### 2 4323-8, 99789-6, 2276-4, 83351-2 ####[facility]ORATORYCLIA [id number] [place] [id number] [place] Protein [Mass/Vol] 5.5 g/dL Low 6.3-8.0 [facility] Comment on above: Order Comment: Speci men Type: BLOOD SPECIMENOrdering Facility: [facility] Address: [address] [place] [address] Performed By: #### 2 4323-8, 56730-6, 6-4, 93698-5 ####[facility]ORATORYCLIA [id number] [place] [id number] [place] Sodium [Moles/Vol] 140 mmol/L Normal 136-144 [facility] Comment on above: Order Comment: Speci men Type: BLOOD SPECIMENOrdering Facility: [facility] Address: [address] [place] [address] Performed By: #### 2 4323-8, 45595-1, 6-4, 28840-3 ####[facility]ORATORYCLIA [id number] [place] [id number] [place] Urea nitrogen [Mass/Vol] 23 mg/dL High 7-21 [facility] Comment on above: Order Comment: Speci men Type: BLOOD SPECIMENOrdering Facility: [facility] Address: [address] [place] [address] Performed By: #### 2 4323-8, 20451-1, 6-4, 22604-6 ####[facility]ORATORYCLIA [id number] [place] [id number] [place] Ferritin SerPl-mCncon 2021 Ferritin [Mass/Vol] 55.3 ng/mL Normal 14.7-205.1 [facility] Comment on above: Order Comment: Speci men Type: BLOOD SPECIMENOrdering Facility: [facility] Address: [address] [place] [address] Performed By: #### 2 4323-8, 12594-6, 6-4, 56953-6 ####[facility]ORATORYCLIA [id number] [place] [address] [facility] Iron and Iron binding capaci ty panelon 08-23-2022 Iron [Mass/Vol] 44 ug/dL Normal 41-186 [facility] Comment on above: Order Comment: Speci men Type: BLOOD SPECIMENOrdering Facility: [facility] Address: [address] [place] [address] Performed By: #### 2 4323-8, 53364-4, 6-4, 70369-2 ####[facility]ATORYCLIA [id number] [place] [id number] [facility] Iron binding capacity [Mass/Vol] 233 ug/dL Normal 232-386 [facility] Comment on above: Order Comment: Speci men Type: BLOOD SPECIMENOrdering Facility: [facility] Address: [address] [place] [address] Performed By: #### 2 4323-8, 23059-3, 6-4, 40549-5 ####[facility]ATORYCLIA [id number] [address] Iron saturation [Mass fraction] 18.9 % Normal 15.0-57.0 [facility] Comment on above: Order Comment: Speci men Type: BLOOD SPECIMENOrdering Facility: [facility] Address: [address] [place] [address] Performed By: #### 2 4323-8, 85447-9, 6-4, 24982-7 ####[facility]ORATORYCLIA [id number] [place] [address] [facility] MINIMUM INHIBITORY CONCENTRA TION (VIZION)on 08-23-2022 Minocycline [Susc] 8 Intermediate [facility] Comment on above: Order Comment: Order ing Facility: [facility] Address: [address] [place] [address] Performed By: #### 5 0545-3, VZMIC ####[facility] LABCLIA [id number] [facility] RIVERSIDEK [id number] [place]#### 630-4 ####[facility]ORATORYCLIA [id number] [place] [address] [facility] Magnesium SerPl-mCncon 08-23 Magnesium [Mass/Vol] 2.3 mg/dL Normal 1.7-2.3 [facility] Comment on above: Order Comment: Speci men Type: BLOOD SPECIMENOrdering Facility: [facility] Address: [address] [place] [address] Performed By: #### 2 4323-8, 92975-4, 2276-4, 69583-1 ####[facility]ATORYCLIA [id number] [address] NURSING PROGon 08-23-2022 NURSING PROG Normal [facility] NURSING PROG Normal [facility] NURSING PROG Normal [facility] PTH-Intact [facility]PlMer[facility] – [place]oncon 07-30 Parathyrin.intact [Mass/Vol] 46 pg/mL Normal 15-65 [facility] Comment on above: Order Comment: Speci men Type: BLOOD SPECIMENOrdering Facility: [facility] Address: [address] [place] [address] Result Comment: Test methodology for this assay has moved from Siemens Centaur XP to Williams berna 8000 effective August 01, 2022. Please note there may be a change in the reporting units and/or reference range. Performed By: #### 2 731-8 ####[facility]ORATORYCLIA [id number] [address] [place] THERAPY NTon 08-23-2022 THERAPY NT Normal [facility] THERAPY NT Normal [facility] US KIDNEY/BLADDERon 08-23-20 US KIDNEY/BLADDER Normal [facility] CBC W Auto Differential pane l (Bld)on 08-22-2022 Basophils (Bld) [#/Vol] 0.13 10*3/uL High <0.11 [facility] Comment on above: Order Comment: Speci men Type: BLOOD SPECIMENOrdering Facility: [facility] Address: [address] [place] [address] Performed By: #### 5 7021-8 ####[facility]ATORYCLIA [id number] [address] Basophils/100 WBC (Bld) 2.0 % Normal A [facility] Comment on above: Order Comment: Speci men Type: BLOOD SPECIMENOrdering Facility: [facility] Address: [address] [place] [address] Performed By: #### 5 7021-8 ####[facility]ATORYCLIA [id number] [address] Dacrocytes LM Ql (Bld) Few Normal [facility] Comment on above: Order Comment: Speci men Type: BLOOD SPECIMENOrdering Facility: [facility] Address: [address] [place] [address] Performed By: #### 5 7021-8 ####[facility]ATORYCLIA [id number] [address] Differential cell count method Nom (Bld) Manual Normal [facility] Comment on above: Order Comment: Speci men Type: BLOOD SPECIMENOrdering Facility: [facility] Address: [address] [place] [address] Performed By: #### 5 7021-8 ####[facility]ATORYCLIA [id number] [address] Eosinophils (Bld) [#/Vol] 0.52 10*3/uL High <0.46 [facility] Comment on above: Order Comment: Speci men Type: BLOOD SPECIMENOrdering Facility: [facility] Address: [address] [place] [address] Performed By: #### 5 7021-8 ####[facility]ORYCLIA [id number] [address] Eosinophils/100 WBC (Bld) 8.0 % Normal [facility] Comment on above: Order Comment: Speci men Type: BLOOD SPECIMENOrdering Facility: [facility] Address: [address] [place] [address] Performed By: #### 5 7021-8 ####[facility]ORATORYCLIA [id number] [address] [place] Erythrocyte distribution width (RBC) [Ratio] 14.6 % Normal 11.5-15.0 [facility] Comment on above: Order Comment: Speci men Type: BLOOD SPECIMENOrdering Facility: [facility] Address: [address] [place] [address] Performed By: #### 5 7021-8 ####[facility]ORATORYCLIA [id number] [address] [facility] Hematocrit (Bld) [Volume fraction] 29.7 % Low 36.0-46.0 [facility] Comment on above: Order Comment: Speci men Type: BLOOD SPECIMENOrdering Facility: [facility] Address: [address] [place] [address] Performed By: #### 5 7021-8 ####[facility]ORATORYCLIA [id number] [address] [place] Hemoglobin (Bld) [Mass/Vol] 9.1 g/dL Low 11.5-15.5 [facility] Comment on above: Order Comment: Speci men Type: BLOOD SPECIMENOrdering Facility: [facility] Address: [address] [place] [address] Performed By: #### 5 7021-8 ####[facility]ORATORYCLIA [id number] [address] [place] Lymphocytes (Bld) [#/Vol] 0.97 10*3/uL Low 1.00-4.00 [facility] Comment on above: Order Comment: Speci men Type: BLOOD SPECIMENOrdering Facility: [facility] Address: [address] [place] [address] Performed By: #### 5 7021-8 ####[facility]ORATORYCLIA [id number] [address] Lymphocytes/100 WBC (Bld) 15.0 % Normal [facility] Comment on above: Order Comment: Speci men Type: BLOOD SPECIMENOrdering Facility: [facility] Address: [address] [place] [address] Performed By: #### 5 7021-8 ####[facility]ORATORYCLIA [id number] [address] MCH (RBC) [Entitic mass] 29.1 pg Normal 26.0-34.0 [facility] Comment on above: Order Comment: Speci men Type: BLOOD SPECIMENOrdering Facility: [facility] Address: [address] [place] [address] Performed By: #### 5 7021-8 ####[facility]ATORYCLIA [id number] [address] MCHC (RBC) [Mass/Vol] 30.6 g/dL Normal 30.5-36.0 [facility] Comment on above: Order Comment: Speci men Type: BLOOD SPECIMENOrdering Facility: [facility] Address: [address] [place] [address] Performed By: #### 5 7021-8 ####[facility]ORATORYCLIA [id number] [address] MCV (RBC) [Entitic vol] 94.9 fL Normal 80.0-100.0 [facility] Comment on above: Order Comment: Speci men Type: BLOOD SPECIMENOrdering Facility: [facility] Address: [address] [place] [address] Performed By: #### 5 7021-8 ####[facility]ORATORYCLIA [id number] [address] Monocytes (Bld) [#/Vol] 0.32 10*3/uL Normal <0.87 [facility] Comment on above: Order Comment: Speci men Type: BLOOD SPECIMENOrdering Facility: [facility] Address: [address] [place] [address] Performed By: #### 5 7021-8 ####[facility] LABORATORYCLIA [id number] [address] [place] Monocytes/100 WBC (Bld) 5.0 % Normal A [facility] Comment on above: Order Comment: Speci men Type: BLOOD SPECIMENOrdering Facility: [facility] Address: [address] [place] [address] Performed By: #### 5 7021-8 ####[facility]ATORYCLIA [id number] [address] STATES [facility] MYELO% 1.0 % Normal [facility] Comment on above: Order Comment: Speci men Type: BLOOD SPECIMENOrdering Facility: [facility] Address: [address] [place] [address] Performed By: #### 5 7021-8 ####[facility]ORATORYCLIA [id number] [address] [place] Neutrophils (Bld) [#/Vol] 4.48 10*3/uL Normal 1.45-7.50 [facility] Comment on above: Order Comment: Speci men Type: BLOOD SPECIMENOrdering Facility: [facility] Address: [address] [place] [address] Performed By: #### 5 7021-8 ####[facility]ATORYCLIA [id number] [address] Neutrophils/100 WBC (Bld) 69.0 % Normal [facility] Comment on above: Order Comment: Speci men Type: BLOOD SPECIMENOrdering Facility: [facility] Address: [address] [place] [address] Performed By: #### 5 7021-8 ####[facility]ATORYCLIA [id number] [address] [place] Nucleated RBC (Bld) [#/Vol] 10*3/uL Normal <0.01 [facility] Comment on above: Order Comment: Speci men Type: BLOOD SPECIMENOrdering Facility: [facility] Address: [address] [place] [address] Performed By: #### 5 7021-8 ####[facility]ORATORYCLIA [id number] [address] [place] Nucleated RBC/100 WBC (Bld) [Ratio] 0.0 /100 WBC Normal [facility] Comment on above: Order Comment: Speci men Type: BLOOD SPECIMENOrdering Facility: [facility] Address: [address] [place] [address] Performed By: #### 5 7021-8 ####[facility]ORATORYCLIA [id number] [address] [place] Platelet mean volume (Bld) [Entitic vol] 8.1 fL Low 9.0-12.7 [facility] Comment on above: Order Comment: Speci men Type: BLOOD SPECIMENOrdering Facility: [facility] Address: [address] [place] [address] Performed By: #### 5 7021-8 ####[facility]ORATORYCLIA [id number] [address] [place] Platelets (Bld) [#/Vol] 251 10*3/uL Normal 150-400 [facility] Comment on above: Order Comment: Speci men Type: BLOOD SPECIMENOrdering Facility: [facility] Address: [address] [place], [place] [id number] Performed By: #### 5 7021-8 ####[facility]ORATORYCLIA [id number] [address] [place] Platelets Estimate (Bld) [#/Vol] Adequate Normal [facility] Comment on above: Order Comment: Speci men Type: BLOOD SPECIMENOrdering Facility: [facility] Address: [address] [place] [address] Performed By: #### 5 7021-8 ####[facility]ORATORYCLIA [id number] [address] STATES OF [facility] RBC (Bld) [#/Vol] 3.13 10*6/uL Low 3.90-5.20 [facility] Comment on above: Order Comment: Speci men Type: BLOOD SPECIMENOrdering Facility: [facility] Address: [address] [place] [address] Performed By: #### 5 7021-8 ####[facility]ORATORYCLIA [id number] [address] [place] RED CELL MORPH Reviewed Normal [facility] Comment on above: Order Comment: Speci men Type: BLOOD SPECIMENOrdering Facility: [facility] Address: [address] [place] [address] Performed By: #### 5 7021-8 ####[facility] LABORATORYCLIA [id number] [address] [place] WBC (Bld) [#/Vol] 6.49 10*3/uL Normal 3.70-11.00 [facility] Comment on above: Order Comment: Speci men Type: BLOOD SPECIMENOrdering Facility: [facility] Address: [address] [place] [address] Performed By: #### 5 7021-8 ####[facility] LABORATORYCLIA [id number] [address] [place] Basophils (Bld) [#/Vol] 10*3/uL Normal <0.11 A [facility] Comment on above: Order Comment: Speci men Type: BLOOD SPECIMENOrdering Facility: [facility] Address: [address] [place] [address] Performed By: #### 5 7021-8 ####[facility] LABCLIA [id number] [place] [address] [facility] [place] Basophils/100 WBC (Bld) 0.1 % Normal A [facility] Comment on above: Order Comment: Speci men Type: BLOOD SPECIMENOrdering Facility: [facility] Address: [address] [place] [address] Performed By: #### 5 7021-8 ####[facility] LABCLIA [id number] [place] [address] [facility] ELI Differential cell count method Nom (Bld) Auto Normal [facility] Comment on above: Order Comment: Speci men Type: BLOOD SPECIMENOrdering Facility: [facility] Address: [address] [place] [address] Performed By: #### 5 7021-8 ####[facility] LABCLIA [id number] [place] [address] [place] Eosinophils (Bld) [#/Vol] 0.49 10*3/uL High <0.46 [facility] Comment on above: Order Comment: Speci men Type: BLOOD SPECIMENOrdering Facility: [facility] Address: [address] [place] [address] Performed By: #### 5 7021-8 ####[facility] LABCLIA [id number] [address] [place] Eosinophils/100 WBC (Bld) 6.2 % Normal [facility] Comment on above: Order Comment: Speci men Type: BLOOD SPECIMENOrdering Facility: [facility] Address: [address] [place] [address] Performed By: #### 5 7021-8 ####[facility] LABCLIA [id number] [place] [address] [place] Erythrocyte distribution width (RBC) [Ratio] 14.5 % Normal 11.5-15.0 [facility] Comment on above: Order Comment: Speci men Type: BLOOD SPECIMENOrdering Facility: [facility] Address: [address] [place] [address] Performed By: #### 5 7021-8 ####[facility] LABCLIA [id number] [place] [address] [facility] [place] Hematocrit (Bld) [Volume fraction] 32.3 % Low 36.0-46.0 [facility] Comment on above: Order Comment: Speci men Type: BLOOD SPECIMENOrdering Facility: [facility] Address: [address] [place] [address] Performed By: #### 5 7021-8 ####[facility] LABCLIA [id number] [place] [address] [place] Hemoglobin (Bld) [Mass/Vol] 9.8 g/dL Low 11.5-15.5 [facility] Comment on above: Order Comment: Speci men Type: BLOOD SPECIMENOrdering Facility: [facility] Address: [address] [place] [address] Performed By: #### 5 7021-8 ####[facility] LABCLIA [id number] [place] [address] [place] Immature granulocytes (Bld) [#/Vol] 0.17 10*3/uL High <0.10 [facility] Comment on above: Order Comment: Speci men Type: BLOOD SPECIMENOrdering Facility: [facility] Address: [address] [place] [address] Performed By: #### 5 7021-8 ####[facility] LABCLIA [id number] [place] [address] [place] Immature granulocytes/100 WBC (Bld) 2.1 % Normal [facility] Comment on above: Order Comment: Speci men Type: BLOOD SPECIMENOrdering Facility: [facility] Address: [address] [place] [address] Performed By: #### 5 7021-8 ####[facility] LABCLIA [id number] [place] [address] [place] Lymphocytes (Bld) [#/Vol] 1.17 10*3/uL Normal 1.00-4.00 [facility] Comment on above: Order Comment: Speci men Type: BLOOD SPECIMENOrdering Facility: [facility] Address: [address] [place] [address] Performed By: #### 5 7021-8 ####[facility] LABCLIA [id number] [place] [address] [facility] Lymphocytes/100 WBC (Bld) 14.8 % Normal [facility] Comment on above: Order Comment: Speci men Type: BLOOD SPECIMENOrdering Facility: [facility] Address: [address] [place] [address] Performed By: #### 5 7021-8 ####[facility] LABCLIA [id number] [address] MCH (RBC) [Entitic mass] 29.6 pg Normal 26.0-34.0 [facility] Comment on above: Order Comment: Speci men Type: BLOOD SPECIMENOrdering Facility: [facility] Address: [address] [place] [address] Performed By: #### 5 7021-8 ####[facility] LABCLIA [id number] [place] [address] [facility] MCHC (RBC) [Mass/Vol] 30.3 g/dL Low 30.5-36.0 [facility] Comment on above: Order Comment: Speci men Type: BLOOD SPECIMENOrdering Facility: [facility] Address: [address] [place] [address] Performed By: #### 5 7021-8 ####[facility] LABCLIA [id number] [place] [address] [facility] MCV (RBC) [Entitic vol] 97.6 fL Normal 80.0-100.0 [facility] Comment on above: Order Comment: Speci men Type: BLOOD SPECIMENOrdering Facility: [facility] Address: [address] [place] [address] Performed By: #### 5 7021-8 ####[facility] LABCLIA [id number] [place] [address] [place] Monocytes (Bld) [#/Vol] 0.59 10*3/uL Normal <0.87 [facility] Comment on above: Order Comment: Speci men Type: BLOOD SPECIMENOrdering Facility: [facility] Address: [address] [place] [address] Performed By: #### 5 7021-8 ####[facility] LABCLIA [id number] [place] [address] [place] Monocytes/100 WBC (Bld) 7.4 % Normal A [facility] Comment on above: Order Comment: Speci men Type: BLOOD SPECIMENOrdering Facility: [facility] Address: [address] [place] [address] Performed By: #### 5 7021-8 ####[facility] LABCLIA [id number] [place] [address] [place] Neutrophils (Bld) [#/Vol] 5.50 10*3/uL Normal 1.45-7.50 [facility] Comment on above: Order Comment: Speci men Type: BLOOD SPECIMENOrdering Facility: [facility] Address: [address] [place] [address] Performed By: #### 5 7021-8 ####[facility] LABCLIA [id number] [place] [address] [place] Neutrophils/100 WBC (Bld) 69.4 % Normal [facility] Comment on above: Order Comment: Speci men Type: BLOOD SPECIMENOrdering Facility: [facility] Address: [address] [place] [address] Performed By: #### 5 7021-8 ####[facility] LABCLIA [id number] [place] [address] [place] Platelet mean volume (Bld) [Entitic vol] 8.3 fL Low 9.0-12.7 [facility] Comment on above: Order Comment: Speci men Type: BLOOD SPECIMENOrdering Facility: [facility] Address: [address] [place] [address] Performed By: #### 5 7021-8 ####[facility] LABCLIA [id number] [place] [address] [place] Platelets (Bld) [#/Vol] 272 10*3/uL Normal 150-400 [facility] Comment on above: Order Comment: Speci men Type: BLOOD SPECIMENOrdering Facility: [facility] Address: [address] [place] [address] Performed By: #### 5 7021-8 ####[facility] LABCLIA [id number] [place] [address] [place] RBC (Bld) [#/Vol] 3.31 10*6/uL Low 3.90-5.20 [facility] Comment on above: Order Comment: Speci men Type: BLOOD SPECIMENOrdering Facility: [facility] Address: [address] [place] [address] Performed By: #### 5 7021-8 ####[facility] LABCLIA [id number] [place] [address] [facility] WBC (Bld) [#/Vol] 7.93 10*3/uL Normal 3.70-11.00 [facility] Comment on above: Order Comment: Speci men Type: BLOOD SPECIMENOrdering Facility: [facility] Address: [address] [place] [address] Performed By: #### 5 7021-8 ####[facility] LABCLIA [id number] [place] [address] [place] CONSULTon 08-22-2022 CONSULT Normal [facility] Comprehensive metabolic 2000 panelon 08-22-2022 Albumin [Mass/Vol] 3.1 g/dL Low 3.9-4.9 [facility] Comment on above: Order Comment: Speci men Type: BLOOD SPECIMENOrdering Facility: [facility] Address: [address] [place] [address] Performed By: #### 2 4323-8, 3024-7, 3016-3, 94159-8 ####[facility] LABORATORYCLIA [id number] [place] [address] [place] ALP [Catalytic activity/Vol] 77 U/L Normal 34-123 [facility] Comment on above: Order Comment: Speci men Type: BLOOD SPECIMENOrdering Facility: [facility] Address: [address] [place] [address] Performed By: #### 2 4323-8, 3024-7, 3016-3, 19775-5 ####[facility] LABORATORYCLIA [id number] [address] [place] ALT With P-5'-P [Catalytic activity/Vol] 8 U/L Normal 7-38 [facility] Comment on above: Order Comment: Speci men Type: BLOOD SPECIMENOrdering Facility: [facility] Address: [address] [place] [address] Performed By: #### 2 4323-8, 3024-7, 3016-3, 41676-5 ####[facility] LABORATORYCLIA [id number] [place] [address] [place] Anion gap [Moles/Vol] 10 mmol/L Normal 9-18 [facility] Comment on above: Order Comment: Speci men Type: BLOOD SPECIMENOrdering Facility: [facility] Address: [address] [place] [address] Performed By: #### 2 4323-8, 3024-7, 3016-3, 98193-8 ####[facility] LABORATORYCLIA [id number] [address] [place] AST With P-5'-P [Catalytic activity/Vol] 9 U/L Low 13-35 [facility] Comment on above: Order Comment: Speci men Type: BLOOD SPECIMENOrdering Facility: [facility] Address: [address] [place], [place] [address] Performed By: #### 2 4323-8, 3024-7, 3016-3, 65530-4 ####[facility] LABORATORYCLIA [id number] [place] [address] [place] Bilirubin [Mass/Vol] 0.3 mg/dL Normal 0.2-1.3 [facility] Comment on above: Order Comment: Speci men Type: BLOOD SPECIMENOrdering Facility: [facility] Address: [address] [place] [address] Performed By: #### 2 4323-8, 3024-7, 3016-3, 83865-0 ####[facility] LABORATORYCLIA [id number] [place] [address] [place] Calcium [Mass/Vol] 8.6 mg/dL Normal 8.5-10.2 [facility] Comment on above: Order Comment: Speci men Type: BLOOD SPECIMENOrdering Facility: [facility] Address: [address] [place] [address] Performed By: #### 2 4323-8, 3024-7, 3016-3, 45190-2 ####[facility] LABORATORYCLIA [id number] [place] [address] [place] Chloride [Moles/Vol] 100 mmol/L Normal 97-105 [facility] Comment on above: Order Comment: Speci men Type: BLOOD SPECIMENOrdering Facility: [facility] Address: [address] [place] [address] Performed By: #### 2 4323-8, 3024-7, 3016-3, 92048-5 ####[facility] LABORATORYCLIA [id number] [place] [address] [place] CO2 [Moles/Vol] 29 mmol/L Normal 22-30 [facility] Comment on above: Order Comment: Speci men Type: BLOOD SPECIMENOrdering Facility: [facility] Address: [address] [place] [address] Performed By: #### 2 4323-8, 3024-7, 3016-3, 31048-6 ####[facility] CENTERCLIA [id number] [place], [place] [address] [place] [address] [place] [facility] Creatinine [Mass/Vol] 1.19 mg/dL High 0.58-0.96 [facility] Comment on above: Order Comment: Spectalia seals Type: BLOOD SPECIMENOrdering Facility: [facility] Address: [address] [place] [address] Performed By: #### 2 4323-8, 3024-7, 3016-3, 72380-0 ####[facility] HOSPITALIA [id number] [address] ESTIMATED GLOMERULAR FILTRATION RATE 51 mL/min/1.73m??? Low >=60 [facility] Comment on above: Order Comment: Scott seals Type: BLOOD SPECIMENOrdering Facility: [facility] Address: [address] [place] [address] Result Comment: Petra mated Glomerular Filtration Rate [...] Performed By: #### 2 4323-8, 3024-7, 3016-3, 40867-6 ####[facility] LABORATORYCLIA [id number] [address] [place] [facility] Glucose [Mass/Vol] 258 mg/dL High 74-99 [facility] Comment on above: Order Comment: Speci men Type: BLOOD SPECIMENOrdering Facility: [facility] Address: [address] [place] [address] Result Comment: The [place] Diabetes Association (ADA) provides guidance for cutoff [...] Standards of Medical Care in Diabetes 2016, [place] [employer]. Diabetes Care. 2016.39(Suppl 1). Performed By: #### 2 4323-8, 3024-7, 3016-3, 68058-2 ####[facility] LABORATORYCLIA [id number] [place] [address] [place] Potassium [Moles/Vol] 4.1 mmol/L Normal 3.7-5.1 [facility] Comment on above: Order Comment: Scott seals Type: BLOOD SPECIMENOrdering Facility: [facility] Address: [address] [place] [address] Performed By: #### 2 4323-8, 3024-7, 3016-3, 89493-7 ####[facility] LABORATORYCLIA [id number] [place] [address] [place] Protein [Mass/Vol] 5.8 g/dL Low 6.3-8.0 [facility] Comment on above: Order Comment: Scott seals Type: BLOOD SPECIMENOrdering Facility: [facility] Address: [address] [place] [address] Performed By: #### 2 4323-8, 3024-7, 3016-3, 22386-9 ####[facility] LABORATORYCLIA [id number] [place] [address] [place] Sodium [Moles/Vol] 139 mmol/L Normal 136-144 [facility] Comment on above: Order Comment: Scott seals Type: BLOOD SPECIMENOrdering Facility: [facility] Address: [address] [place] [address] Performed By: #### 2 4323-8, 3024-7, 3016-3, 54250-2 ####[facility] LABORATORYCLIA [id number] [address] [place] Urea nitrogen [Mass/Vol] 20 mg/dL Normal 7-21 [facility] Comment on above: Order Comment: Speci men Type: BLOOD SPECIMENOrdering Facility: [facility] Address: [address] [place] [address] Performed By: #### 2 4323-8, 3024-7, 3016-3, 97793-7 ####[facility] LABORATORYCLIA [id number] [address] [place] [facility] Albumin [Mass/Vol] 2.6 g/dL Low 3.4-5.0 [facility] Comment on above: Order Comment: Speci men Type: BLOOD SPECIMENOrdering Facility: [facility] Address: [address] [place] [address] Performed By: #### 2 4323-8 ####[facility] LABCLIA [id number] [address] [place] ALP [Catalytic activity/Vol] 79 U/L Normal 46-116 [facility] Comment on above: Order Comment: Speci men Type: BLOOD SPECIMENOrdering Facility: [facility] Address: [address] [place] [address] Performed By: #### 2 4323-8 ####[facility] LABCLIA [id number] [place] [address] [place] ALT With P-5'-P [Catalytic activity/Vol] 15 U/L Normal 12-78 [facility] Comment on above: Order Comment: Speci men Type: BLOOD SPECIMENOrdering Facility: [facility] Address: [address] [place] [address] Performed By: #### 2 4323-8 ####[facility] LABCLIA [id number] [place] [address] [place] Anion gap [Moles/Vol] 10 mmol/L Normal 8-16 [facility] Comment on above: Order Comment: Speci men Type: BLOOD SPECIMENOrdering Facility: [facility] Address: [address] [place] [address] Performed By: #### 2 4323-8 ####[facility] LABCLIA [id number] [place] [address] [place] AST With P-5'-P [Catalytic activity/Vol] 18 U/L Normal 15-46 [facility] Comment on above: Order Comment: Speci men Type: BLOOD SPECIMENOrdering Facility: [facility] Address: [address] [place] [address] Performed By: #### 2 4323-8 ####[facility] LABCLIA [id number] [place] [address] [place] Bilirubin [Mass/Vol] 0.3 mg/dL Normal 0.2-1.0 [facility] Comment on above: Order Comment: Speci men Type: BLOOD SPECIMENOrdering Facility: [facility] Address: [address] [place] [address] Performed By: #### 2 4323-8 ####[facility] LABCLIA [id number] [place] [address] [place] Calcium [Mass/Vol] 8.5 mg/dL Normal 8.5-10.1 [facility] Comment on above: Order Comment: Speci men Type: BLOOD SPECIMENOrdering Facility: [facility] Address: [address] [place] [address] Performed By: #### 2 4323-8 ####[facility] LABCLIA [id number] [place] [address] [place] Chloride [Moles/Vol] 98 mmol/L Normal 98-107 [facility] Comment on above: Order Comment: Speci men Type: BLOOD SPECIMENOrdering Facility: [facility] Address: [address] [place] [address] Performed By: #### 2 4323-8 ####[facility] LABCLIA [id number] [place] [address] [place] CO2 [Moles/Vol] 30 mmol/L Normal 21-32 [facility] Comment on above: Order Comment: Speci men Type: BLOOD SPECIMENOrdering Facility: [facility] Address: [address] [place] [address] Performed By: #### 2 4323-8 ####[facility] LABIA [id number] [place] [address] [place] Creatinine [Mass/Vol] 1.35 mg/dL High 0.51-0.95 [facility] Comment on above: Order Comment: Speci men Type: BLOOD SPECIMENOrdering Facility: [facility] Address: [address] [place] [address] Performed By: #### 2 4323-8 ####[facility] LABIA [id number] [place] [address] [facility] ESTIMATED GLOMERULAR FILTRATION RATE 44 mL/min/1.73m??? Low >=60 [facility] Comment on above: Order Comment: Speci men Type: BLOOD SPECIMENOrdering Facility: [facility] Address: [address] [place] [address] Result Comment: Petra mated Glomerular Filtration Rate [...] actual GFR. Performed By: #### 2 4323-8 ####[facility] LABIA [id number] [place] [address] [place] Glucose [Mass/Vol] 281 mg/dL High 70-99 [facility] Comment on above: Order Comment: Speci men Type: BLOOD SPECIMENOrdering Facility: [facility] Address: [address] [place] [address] Result Comment: The [place] Diabetes Association (ADA) provides guidance for cutoff [...] Standards of Medical Care in Diabetes 2016, [place] [employer]. Diabetes Care. 2016.39(Suppl 1). Performed By: #### 2 4323-8 ####[facility] LABCLIA [id number] [place] [address] [place] Potassium [Moles/Vol] 4.6 mmol/L Normal 3.5-5.1 [facility] Comment on above: Order Comment: Speci men Type: BLOOD SPECIMENOrdering Facility: [facility] Address: [address] [place] [address] Performed By: #### 2 4323-8 ####[facility] Vitae PharmaceuticalsIA [id number] [place] [address] [place] Protein [Mass/Vol] 6.8 g/dL Normal 6.4-8.2 [facility] Comment on above: Order Comment: Speci men Type: BLOOD SPECIMENOrdering Facility: [facility] Address: [address] [address] Performed By: #### 2 4323-8 ####[facility] LABIA [id number] [place] [address] [place] Sodium [Moles/Vol] 138 mmol/L Normal 136-145 [facility] Comment on above: Order Comment: Speci men Type: BLOOD SPECIMENOrdering Facility: [facility] Address: [address] [address] Performed By: #### 2 4323-8 ####[facility] LABCLIA [id number] [place] [address] [place] Urea nitrogen [Mass/Vol] 25 mg/dL High 7-18 [facility] Comment on above: Order Comment: Speci men Type: BLOOD SPECIMENOrdering Facility: [facility] Address: [address] [place] [address] Performed By: #### 2 4323-8 ####[facility] LABCLIA [id number] [place] [address] [place] ECG COMPLETEon 08-22-2022 ECG COMPLETE Normal [facility] ED NOTEon 08-22-2022 ED NOTE HNO ID: [id number] Author: Maryan Marcum RN Service: Emergency Medicine Author Type: Registered Nurse Type: ED Notes Filed: 08/22/2022 8:57 AM Note Text: Report given to [facility] here to take pt to 7107-2 Normal [facility] ED NOTE HNO ID: [id number] Author: Maryan Marcum RN Service: Emergency Medicine Author Type: Registered Nurse Type: ED Notes Filed: 08/22/2022 8:56 AM Note Text: Normal [facility] ED NOTE Normal [facility] ED NOTE Normal [facility] ED PROV NOTEon 08-22-2022 ED PROV NOTE Normal [facility] ED PROV NOTE Normal [facility] HISTORY PHYSICALon HISTORY PHYSICAL Normal [facility] Magnesium SerPl-mCncon 08-22 Magnesium [Mass/Vol] 1.6 mg/dL Low 1.7-2.3 [facility] Comment on above: Order Comment: Speci men Type: BLOOD SPECIMENOrdering Facility: [facility] Address: [address] [place], [place] [address] Performed By: #### 1 9123-9 ####[facility] LABORATORYCLIA [id number] [place], [place] [id number] [place] [address] [place] NT-proBNP SerPl-mCncon 08-22 Natriuretic peptide.B prohormone N-Terminal [Mass/Vol] 199 pg/mL High <125 [facility] Comment on above: Order Comment: Speci men Type: BLOOD SPECIMENOrdering Facility: [facility] Address: [address] [place] [address] Performed By: #### 3 3762-6, TROP ####[facility] LABCLIA [id number] [place] [address] [place] Procalcitonin SerPl-mCncon 1 Procalcitonin [Mass/Vol] ng/mL Normal <0.09 [facility] Comment on above: Order Comment: Speci men Type: BLOOD SPECIMENOrdering Facility: [facility] Address: [address] [place] [address] Result Comment: For a guided interpretation of test results, please visit the Change in Procalcitonin Calculator, [email or web address]. Performed By: #### 2 4323-8, 3024-7, 3016-3, 95212-8 ####[facility] LABORATORYCLIA [id number] [place] [address] [place] SARS-CoV-2 RNA Resp Ql IGGY+p robeon 08-22-2022 SARS-CoV-2 (COVID-19) RNA IGGY+probe Ql (Resp) COVID 19 RESULT: SARS-CoV-2 (Agent of COVID-19) Not Detected by RT-PCR or equivalent method. This test has been authorized by FDA under an Emergency Use Authorization (EUA). Normal [facility] Comment on above: Performed By: #### 9 4500-6 ####[facility] LABCLIA [id number] [place] [address] [place] T4 Free SerPl-mCncon 022 Free T4 [Mass/Vol] 1.0 ng/dL Normal 0.9-1.7 [facility] Comment on above: Order Comment: Speci men Type: BLOOD SPECIMENOrdering Facility: [facility] Address: [address] [place] [address] Performed By: #### 2 4323-8, 3024-7, 3016-3, 14991-7 ####[facility] LABORATORYCLIA [id number] [address] STATES OF [facility] TROPONIN Ion 08-22-2022 Troponin I.cardiac [Mass/Vol] 0.000 ng/mL Normal <0.040 [facility] Comment on above: Order Comment: Speci men Type: BLOOD SPECIMENOrdering Facility: [facility] Address: [address] [place] [address] Performed By: #### 3 3762-6, TROP ####[facility] LABCLIA [id number] [place] [address] [place] TSH SerPl-aCncon 08-22-2022 TSH Qn 2.850 m[IU]/L Normal 0.270-4.200 [facility] Comment on above: Order Comment: Speci men Type: BLOOD SPECIMENOrdering Facility: [facility] Address: [address] [place] [address] Performed By: #### 2 4323-8, 3024-7, 3016-3, 53935-3 ####[facility] LABORATORYCLIA [id number] [address] [place] US DVT LOWER BILon 2 US DVT LOWER CHERISE Normal [facility] Urinalysis complete panel (U )on 08-22-2022 Bacteria LM.HPF (Urine sed) [#/Area] Many Abnormal None Seen [facility] Comment on above: Order Comment: Speci men Type: URINE SPECIMENOrdering Facility: [facility] Address: [address] [place] [address] Performed By: #### 2 4356-8 ####[facility] LABORATORYCLIA [id number] [place] [address] [place] Bilirubin Ql (U) Negative Normal Negative [facility] Comment on above: Order Comment: Speci men Type: URINE SPECIMENOrdering Facility: [facility] Address: [address] [place] [address] Performed By: #### 2 4356-8 ####[facility] LABORATORYCLIA [id number] [address] Clarity (Unsp spec) Clear Normal Clear [facility] Comment on above: Order Comment: Speci men Type: URINE SPECIMENOrdering Facility: [facility] Address: [address] [place] [address] Performed By: #### 2 4356-8 ####[facility] LABORATORYCLIA [id number] [address] OF [facility] Color (U) Light Yellow Normal yellow [facility] Comment on above: Order Comment: Speci men Type: URINE SPECIMENOrdering Facility: [facility] Address: [address] [place] [address] Performed By: #### 2 4356-8 ####[facility] LABORATORYCLIA [id number] [address] Epithelial cells LM.HPF (Urine sed) [#/Area] Few Abnormal None Seen [facility] Comment on above: Order Comment: Speci men Type: URINE SPECIMENOrdering Facility: [facility] Address: [address] [place] [address] Performed By: #### 2 4356-8 ####[facility] LABORATORYCLIA [id number] [address] [place] Glucose Test strip (U) [Mass/Vol] 2+ Abnormal Negative [facility] Comment on above: Order Comment: Speci men Type: URINE SPECIMENOrdering Facility: [facility] Address: [address] [place] [address] Performed By: #### 2 4356-8 ####[facility] LABORATORYCLIA [id number] [address] Hemoglobin Ql (U) 1+ Abnormal Negative [facility] Comment on above: Order Comment: Speci men Type: URINE SPECIMENOrdering Facility: [facility] Address: [address] [place], [place] [address] Performed By: #### 2 4356-8 ####[facility] LABORATORYCLIA [id number] [address] Hyaline casts (Urine sed) [#/Area] 1-3 /LPF Abnormal 0 /LPF [facility] Comment on above: Order Comment: Speci men Type: URINE SPECIMENOrdering Facility: [facility] Address: [address] [place] [address] Performed By: #### 2 4356-8 ####[facility] LABORATORYCLIA [id number] [address] STATES [facility] Ketones Ql (U) Negative Normal Negative [facility] Comment on above: Order Comment: Speci men Type: URINE SPECIMENOrdering Facility: [facility] Address: [address] [place] [address] Performed By: #### 2 4356-8 ####[facility] LABORATORYCLIA [id number] [address] Leukocyte esterase Test strip Ql (U) 250 Ha/mL Abnormal Negative [facility] Comment on above: Order Comment: Speci men Type: URINE SPECIMENOrdering Facility: [facility] Address: [address] [place] [address] Performed By: #### 2 4356-8 ####[facility] LABORATORYCLIA [id number] [address] STATES [place] Nitrite Ql (U) 1+ Abnormal Negative [facility] Comment on above: Order Comment: Speci men Type: URINE SPECIMENOrdering Facility: [facility] Address: [address] [place] [address] Performed By: #### 2 4356-8 ####[facility] LABORATORYCLIA [id number] [address] pH (U) 6.0 [pH] Normal 5.0-8.0 [facility] Comment on above: Order Comment: Speci men Type: URINE SPECIMENOrdering Facility: [facility] Address: [address] [place] [address] Performed By: #### 2 4356-8 ####[facility] LABORATORYCLIA [id number] [address] Protein (U) [Mass/Vol] Negative Normal Negative [facility] Comment on above: Order Comment: Speci men Type: URINE SPECIMENOrdering Facility: [facility] Address: [address] [place] [address] Performed By: #### 2 4356-8 ####[facility] LABORATORYCLIA [id number] [address] STATES [facility] RBC LM.HPF (Urine sed) [#/Area] 0-3 /HPF Normal 0-3 /HPF [facility] Comment on above: Order Comment: Speci men Type: URINE SPECIMENOrdering Facility: [facility] Address: [address] [place] [address] Performed By: #### 2 4356-8 ####[facility] LABORATORYCLIA [id number] [address] Specific gravity (U) [Rel density] 1.009 Normal 1.005-1.030 [facility] Comment on above: Order Comment: Speci men Type: URINE SPECIMENOrdering Facility: [facility] Address: [address] [place] [address] Performed By: #### 2 4356-8 ####[facility] LABORATORYCLIA [id number] [address] Urobilinogen Ql (U) 1+ Abnormal Negative [facility] Comment on above: Order Comment: Speci men Type: URINE SPECIMENOrdering Facility: [facility] Address: [address] [place] [address] Performed By: #### 2 4356-8 ####[facility] LABORATORYCLIA [id number] [address] [place] WBC LM.HPF (Urine sed) [#/Area] 6-10 /HPF Abnormal 0-5 /HPF [facility] Comment on above: Order Comment: Speci men Type: URINE SPECIMENOrdering Facility: [facility] Address: [facility] [place] [address] Performed By: #### 2 4356-8 ####[facility] LABORATORYCLIA [id number] [place] [address] [place] XR CHEST 1V FRONTALon 2021 XR CHEST 1V FRONTAL Normal [facility] CNPNon 08-21-2022 CNPN Normal [facility] CNPNon 08-17-2022 CNPN Normal [facility] CNPTOUTREACHon 08-17-2022 CNPTOUTREACH Normal [facility] CNOVon 2022 CNOV Normal [facility] CNPNon 08-02-2022 CNPN Telephone (STFLF) KIMBERLY PATEL ([id number]) 1955 [facility] Date Time Provider Department 08/02/22 VAL ENRIQUEZ During your visit today, we recorded the [...] call the [facility] at [phone] Allergies As of Date: 08/02/2022 Noted Allergy Reaction DILAUDID (HYDROMORPHONE (BULK)) 05/30/2012 11 - Vomiting JARDIANCE (EMPAGLIFLOZIN) 11/07/2021 14 - Other: See Comments Comments: UTI METFORMIN 05/30/2012 6 - Diarrhea MORPHINE 05/30/2012 11 - Vomiting ONDANSETRON 02/14/2021 16 - Unknown PENICILLINS 05/30/2012 2 - Rash TRULICITY (DULAGLUTIDE) 11/07/2021 8 - GI Upset Comments: Nausea/Vomiting Date Reviewed: 08/02/2022 Reviewed by: Agustin Barahona APRN.FINANCIAL DEVELOPER - Fully Assessed Reason for Visit: Appointment [...] tablets by mouth once daily. - Insulin Washburn, Disposable, (PEN NEEDLE) 31 gauge x 3/16" Use as directed to inject insulin 5 [...] needed (constipation). - WALKER ROLLATOR SEAT WITH 6" WHEELS - RED Walker rollator with seat - aspirin, enteric coated (ASPIRIN, ENTERIC COATED) 81 mg EC tablet Take 81 mg by mouth once daily. - ranolazine SR (RANEXA) 1,000 mg tab ER 12 hr Take 1,000 mg by mouth twice daily. Meds Comments as of 07/08/2021: 07/08/21 The medications are managed by this patient by: LUIS ALBRETO Bedolla RPh 02/10/21 The medications are managed by this patient by: PATIENT Chiquita Bedolla PharmD 12/03/20 The medications are managed by this patient by: PATIENT Quique Guzmán PharmD Problem List As Of Date 08/02/2022 Noted Resolved Heart disease (or (more content not included)... [facility] (PMSTOW[facility] KIMBERLY PATEL ([id number]) 1955 [facility] Date Time Provider Department 07/06/22 SUSAN CUELLO PMSTOW During your visit today, we recorded the following information about you: Susan Cuello RPh 07/06/2022 6:03 PM Signed Patient has reached A1c goal of <8% and is now following with new PCP outside of my consult scope. To be discharged from pharmD services now. PharmD removed from patient's CareTeam. Thank you, Susan Cuello PharmD, BCACP Susan Cuello [facility] 07/06/2022 6:03 PM Signed Care Transition Back [...] services. Thank you, Susan Cuello PharmD, BCACP Agustin Barahona APRN.FINANCIAL DEVELOPER 07/07/2022 10:58 AM Signed Noted. Thank you for your exceptional care. Agustin Barahona APRN.FINANCIAL DEVELOPER Allergies As of Date: 07/06/2022 Noted Allergy Reaction DILAUDID (HYDROMORPHONE (BULK)) 05/30/2012 11 - Vomiting JARDIANCE (EMPAGLIFLOZIN) 11/07/2021 14 - Other: See Comments Comments: UTI METFORMIN 05/30/2012 6 - Diarrhea MORPHINE 05/30/2012 11 - Vomiting ONDANSETRON 02/14/2021 16 - Unknown PENICILLINS 05/30/2012 2 - Rash TRULICITY (DULAGLUTIDE) 11/07/2021 8 - GI Upset Comments: Nausea/Vomiting Date Reviewed: 07/06/2022 Reviewed by: Susan Cuello [facility] - Fully Assessed Reason for Visit: Launch Check Out - Other [3602] Cmt: Discharged from pharmD [...] insulin: yes, E11.42 - blood sugar diagnostic (FeedVisorTOUCH ULTRA TEST) test strip Use as directed [...] tablets by mouth once daily. - Insulin Washburn, Disposable, (PEN NEEDLE) 31 gauge x 3/16" Use as directed to inject insulin 5 [...] - Lancing Device (LANCING DEVICE WITH LANCETS) [facility] Use as directed to check blood sugar 3 times daily, insulin: yes, E11.9 - HYDROcodone-Acetaminoph en (NORCO) 7.5-325 mg per tablet Take 1 tablet by mouth once daily as needed for pain. - polyethylene glycol 3350 (MIRALAX, GLYCOLA (more content not included)... Normal [facility] KIMBERLY PATEL ([id number]) 1955 F Date Time Provider Department 06/29/22 FRANKIE DENG [facility] During your visit today, we recorded the following information about you: Domenica Olvera 06/29/2022 8:55 AM Signed Please call pt to verify if she will be continuing with [facility] or staying with her currently listed PCP and update chart accordingly. Domenica Olvera Modesta [facility] Pss 06/30/2022 6:10 PM Signed Patient, , states she is cancelling [facility] Services and now has a new PCP as of 06/23/22. [facility] Nanette Bertingaye, PSS 11/30/2022 10:40 AM Signed Patient discharged from [facility]: Discharge Reason: Change - Doctor Change/left practice Discharge Date: 06/30/2022 Please cancel any pending orders-[facility] ,[facility], upcoming appointments with [facility] Allergies As of Date: 06/29/2022 Noted Allergy Reaction DILAUDID (HYDROMORPHONE (BULK)) 05/30/2012 11 - Vomiting JARDIANCE (EMPAGLIFLOZIN) 11/07/2021 14 - Other: See Comments Comments: UTI METFORMIN 05/30/2012 6 - Diarrhea MORPHINE 05/30/2012 11 - Vomiting ONDANSETRON 02/14/2021 16 - Unknown PENICILLINS 05/30/2012 2 - Rash TRULICITY (DULAGLUTIDE) 11/07/2021 8 - GI Upset Comments: Nausea/Vomiting Date Reviewed: 06/26/2022 Reviewed by: Agustin Barahona APRN.FINANCIAL DEVELOPER - Fully Assessed Reason for Visit: Patient Update [1234] Cmt: Verify PCP cancelled [facility] [Other] Prescriptions as of 11/30/2022 - [...] by this patient by: PATIENT Chiquita Bedolla PharmRizwana 12/03/20 The medications are managed by this patient by: PATIENT Jorge (more content not included)... Normal [facility] CBC W Auto Differential pane l (Bld)on 06-23-2022 Abs Immature Gran 0.10 k/uL High <0.10 k/uL [facility] Basophils (Bld) [#/Vol] 0.05 10*3/uL <0.11 k/uL [facility] Basophils/100 WBC (Bld) 0.6 % [facility] Differential cell count method Nom (Bld) Auto [facility] Eosinophils (Bld) [#/Vol] 0.36 10*3/uL <0.46 k/uL [facility] Eosinophils/100 WBC (Bld) 4.3 % [facility] Erythrocyte distribution width (RBC) [Ratio] 13.4 % 11.5 - 15.0 % [facility] Hematocrit (Bld) [Volume fraction] 33.4 % Low 36.0 - 46.0 % [facility] Hemoglobin (Bld) [Mass/Vol] 10.0 g/dL Low 11.5 - 15.5 g/dL [facility] Immature Gran % 1.2 % [facility] Lymphocytes (Bld) [#/Vol] 1.22 10*3/uL 1.00 - 4.00 k/uL [facility] Lymphocytes/100 WBC (Bld) 14.7 % [facility] MCH (RBC) [Entitic mass] 28.1 pg 26.0 - 34.0 pg [facility] MCHC (RBC) [Mass/Vol] 29.9 g/dL Low 30.5 - 36.0 g/dL [facility] MCV (RBC) [Entitic vol] 93.8 fL 80.0 - 100.0 fL [facility] Monocytes (Bld) [#/Vol] 0.50 10*3/uL <0.87 k/uL [facility] Monocytes/100 WBC (Bld) 6.0 % [facility] Neutrophils (Bld) [#/Vol] 6.09 10*3/uL 1.45 - 7.50 k/uL [facility] Neutrophils/100 WBC (Bld) 73.2 % [facility] Nucleated RBC (Bld) [#/Vol] <0.01 k/uL [facility] Nucleated RBC/100 WBC (Bld) [Ratio] 0.0 /100 WBC [facility] Platelet mean volume (Bld) [Entitic vol] 8.7 fL Low 9.0 - 12.7 fL [facility] Platelets (Bld) [#/Vol] 252 10*3/uL 150 - 400 k/uL [facility] RBC (Bld) [#/Vol] 3.56 10*6/uL Low 3.90 - 5.2 0 m/uL [facility] WBC (Bld) [#/Vol] 8.32 10*3/uL 3.70 - 11.00 k/uL [facility] Comprehensive metabolic 2000 panelon 06-23-2022 Albumin [Mass/Vol] 4.0 g/dL 3.9 - 4.9 g/dL [facility] ALP [Catalytic activity/Vol] 88 U/L 34 - 123 U/L [facility] ALT With P-5'-P [Catalytic activity/Vol] 9 U/L 7 - 38 U/L [facility] Anion gap [Moles/Vol] 10 mmol/L 9 - 18 mmol/L [facility] AST With P-5'-P [Catalytic activity/Vol] 12 U/L Low 13 - 35 U/L [facility] Bilirubin [Mass/Vol] 0.4 mg/dL 0.2 - 1 .3 mg/dL [facility] Calcium [Mass/Vol] 9.2 mg/dL 8.5 - 10. 2 mg/dL [facility] Chloride [Moles/Vol] 103 mmol/L 97 - 10 5 mmol/L [facility] CO2 [Moles/Vol] 29 mmol/L 22 - 30 mmol/L [facility] Creatinine [Mass/Vol] 1.31 mg/dL High 0.58 - 0.96 mg/dL [facility] Estimated Glomerular Filtration Rate 46 mL/min/1.73m Low >=60 mL/min/1.73 m [facility] Glucose [Mass/Vol] 200 mg/dL High 74 - 99 mg/dL [facility] Potassium [Moles/Vol] 4.5 mmol/L 3.7 - 5.1 mmol/L [facility] Protein [Mass/Vol] 6.4 g/dL 6.3 - 8.0 g/dL [facility] Sodium [Moles/Vol] 142 mmol/L 136 - 144 mmol/L [facility] Urea nitrogen [Mass/Vol] 21 mg/dL 7 - 21 mg/dL [facility] HEMOGLOBIN A1C (POC)on 06-23 HbA1c (Bld) [Mass fraction] 7.9 % Abnormal 4.2 - 5.6 % [facility] Lipid 1996 panelon Cholesterol [Mass/Vol] 153 mg/dL <200 mg/dL [facility] Cholesterol in HDL [Mass/Vol] 48 mg/dL >39 mg/dL [facility] Cholesterol in LDL [Mass/Vol] 68 mg/dL <100 mg/dL [facility] Cholesterol in LDL/Cholesterol in HDL [Mass ratio] 1.42 {ratio} <2.54 [facility] Cholesterol in VLDL [Mass/Vol] 37 mg/dL High <30 mg/dL [facility] Cholesterol non HDL [Mass/Vol] 105 mg/dL <130 mg/dL [facility] Cholesterol.total/Isatu sterol in HDL [Mass ratio] 3.19 {ratio} <5.10 [facility] Fasting Time 12 hrs [facility] Triglyceride [Mass/Vol] 187 mg/dL High <150 mg/dL [facility] TSH BLDon 06-23-2022 TSH Qn 2.950 m[IU]/L 0.270 - 4.200 mIU/L [facility] CNPNon 05-08-2022 CNPN Telephone ([facility]) KIMBERLY PATEL ([id number]) 1955 [facility] Date Time Provider Department 05/08/22 FRANKIE DENG [facility] During your visit today, we recorded the following information about you: Frankie Deng MD 05/08/2022 6:49 PM Signed Page by dtr. Pt DC'd from [facility] yesterday. Had sepsis and UTI. Furosemide [...] 05/10/2022 4:37 PM Signed Left message at [phone] requesting call back to confirm post hospital [...] Date Reviewed: 04/14/2022 Reviewed by: Susan Cuello [facility] - Fully Assessed Reason for [...] units subcutaneously in the PM - Insulin Washburn, Disposable, (PEN NEEDLE) 31 gauge x 3/16" Use as directed to inject insulin 5 [...] needed (constipation). - WALKER ROLLATOR SEAT WITH 6" WHEELS - RED Walker rollator with seat - aspirin, enteric coated (ASPIRIN LOW DOSE) 81 mg EC tablet Take 81 mg by mouth once daily. - ranolazine SR (RANEXA) 1,000 mg tab ER 12 hr Take 1,000 mg by mouth twice daily. Meds Comments as of 07/08/2021: 07/08/21 The medications are managed by this patient by: PATIENT Chiquitatyree Bon[place], [facility] 02/10/21 The medications are managed by this patient (more content not included)... Normal [facility] CBC with Auto Differentialon 05-06-2022 Hematocrit (Bld) [Volume fraction] 28.0 % Low 35.0 - 47.0 % [facility] Work Phone: Hemoglobin (Bld) [Mass/Vol] 9.4 g/dL Low 11.7 - 16.0 g/dL [facility] Work Phone: Interpretation and review of laboratory results Abnormal [employer] Work Phone: MCH (RBC) [Entitic mass] 29.9 pg 26.0 - 34.0 pg [employer] Work Phone: MCHC (RBC) [Mass/Vol] 33.6 % 32.0 - 36.0 % [facility] Work Phone: 1 MCV (RBC) [Entitic vol] 89.1 fL 79.0 - 98.0 fL [employer] [facility] Work Phone: 1 Platelet distribution width (Bld) [Ratio] 13.5 % 11.5 - 14.5 % [facility] Work Phone: 1 Platelet mean volume (Bld) [Entitic vol] 6.6 fL Low 7.4 - 12.4 fL [facility] Work Phone: 1 Comment on above: MPV is a calculated measurement using platelet volume ratio. Platelets (Bld) [#/Vol] 171 10*3/uL 140 - 440 10*3/uL [facility] Work Phone: 1 RBC (Bld) [#/Vol] 3.14 10*6/uL Low 3.80 - 5.2 0 10*6/uL [facility] Work Phone: 1 WBC (Bld) [#/Vol] 9.2 10*3/uL 3.6 - 10.7 10*3/uL [facility] Work Phone: 1 Test Performed by [facility], [address] [place], [place] [address] [facility] Work Phone: [phone] CULTURE BLOODon 05-06-2022 Microscopic examination of blood, culture CULTURE BLOOD --> Status: F No growth at 5 days. Normal [facility] Comment on above: Performed By: #### L ACTS #### [facility] [address] [place] [address] CULTURE BLOOD (Two)on 2021 Microscopic examination of blood, culture CULTURE BLOOD (Two) --> Status: F No growth at 5 days. Normal [facility] Comment on above: Performed By: #### L ACTS #### [facility] [address] [place] [address] Comp Panel with Mg Reflexon 05-06-2022 ALP [Catalytic activity/Vol] 82 U/L Normal 38-126 [facility] Comment on above: Performed By: #### ROMEO LOPEZ MDIFF #### [facility] [address] [place] [address] #### PCAL #### [place] [address] [address] [place], [place] ALT [Catalytic activity/Vol] 14 U/L Normal 0-34 [facility] Comment on above: Result Comment: The ALT test is performed by an updated assay method. Please note that the reference intervals have been changed and are now sex specific. Performed By: #### ROMEO LOPEZ MDIFF #### [place] [address] [place] [address] #### PCAL #### [place] [address] [address] [place], [place] Calcium [Mass/Vol] 8.8 mg/dL Normal 8.4-10.4 [facility] Comment on above: Performed By: #### ROMEO LOPEZ MDIFF #### [place] [address] [place] [address] #### PCAL #### [place] [address] [address] [place], [place] Glucose [Mass/Vol] 242 mg/dL High 70-100 [facility] Comment on above: Performed By: #### ROMEO LOPEZ MDIFF #### [place] [address] [place] [address] #### PCAL #### [place] [address] [address] [place], [place] Urea nitrogen [Mass/Vol] 27 mg/dL High 9-20 [facility] Comment on above: Performed By: #### ROMEO LOPEZ MDIFF #### [place] [address] [place] [address] #### PCAL #### [place] [address] [address] [place], [place] Anion gap [Moles/Vol] 3 mmol/L Normal 3-13 [facility] Comment on above: Performed By: #### ROMEO LOPEZ MDIFF #### [place] [address] [place] [address] #### PCAL #### [address] AST [Catalytic activity/Vol] 18 U/L Normal 15-46 [facility] Comment on above: Performed By: #### C ROMEO DEY MDIFF #### [address] [place] [address] #### PCAL #### [address] Bilirubin [Mass/Vol] 0.4 mg/dL Normal 0.2-1.3 [facility] Comment on above: Performed By: #### C ROMEO DEY MDIFF #### [address] [place] [address] #### PCAL #### [address] CO2 [Moles/Vol] 32 mmol/L High 22-30 [facility] Comment on above: Performed By: #### C ROMEO DEY MDIFF #### [address] [place] [address] #### PCAL #### [address] Creatinine [Mass/Vol] 1.48 mg/dL High 0.52-1.25 [facility] Comment on above: Performed By: #### C ROMEO DEY MDIFF #### [address] [place] [address] #### PCAL #### [address] GFR/1.73 sq M.predicted among blacks MDRD (S/P/Bld) [Vol rate/Area] 42.7 mL/min/{1.73_m2} Abnormal >60 [facility] Comment on above: Performed By: #### C ROMEO DEY MDIFF #### [place] [address] [place] [address] #### PCAL #### [address] GFR/1.73 sq M.predicted among non-blacks MDRD (S/P/Bld) [Vol rate/Area] 36.8 mL/min/{1.73_m2} Abnormal >60 [facility] Comment on above: Result Comment: [...] By: #### C ROMEO DEY MDIFF #### [facility] [address] [place] [address] #### PCAL #### [address] Protein [Mass/Vol] 6.1 g/dL Low 6.3-8.2 [facility] Comment on above: Performed By: #### ROMEO LOPEZ MDIFF #### [facility] [address] [place] [address] #### PCAL #### [address] Chloride [Moles/Vol] 102 mmol/L Normal 98-107 [facility] Comment on above: Performed By: #### ROMEO LOPEZ MDIFF #### [facility] [address] [place] [address] #### PCAL #### [address] Potassium [Moles/Vol] 4.3 mmol/L Normal 3.5-5.1 [facility] Comment on above: Performed By: #### C ROMEO DEY MDIFF #### [facility] [address] [place] [address] #### PCAL #### [facility] [address], [place] Sodium [Moles/Vol] 137 mmol/L Normal 135-145 [facility] Comment on above: Performed By: #### C ROMEO DEY MDIFF #### [facility] [address] [place] [address] #### PCAL #### [facility] [address] [place], [place] Albumin [Mass/Vol] 3.4 g/dL Low 3.5-5.0 [facility] Comment on above: Performed By: #### ROMEO LOPEZ MDIFF #### [facility] [address] [place] [address] #### PCAL #### [place] [address] [place], [place] Comprehensive Metabolic Pane l w/ Reflex to MGon 05-06-2022 Albumin [Mass/Vol] 3.4 g/dL Low 3.5 - 5.0 g/dL [facility] Work Phone: [phone] ALP (Bld) [Catalytic activity/Vol] 82 U/L 38 - 126 U/L [facility] Work Phone: [phone] ALT [Catalytic activity/Vol] 14 U/L 0 - 34 U/L [employer] [facility] Work Phone: [phone] Comment on above: The ALT test is perf ormed by an updated assay method. Please note that the reference intervals have been changed and are now sex specific. Anion gap [Moles/Vol] 3 mmol/L 3 - 13 mmol/L [facility] Work Phone: [phone] AST [Catalytic activity/Vol] 18 U/L 15 - 46 U/L [facility] Work Phone: [phone] Bilirubin [Mass/Vol] 0.4 mg/dL 0.2 - 1 .3 mg/dL [facility] Work Phone: [phone] Calcium [Mass/Vol] 8.8 mg/dL 8.4 - 10. 4 mg/dL [facility] Work Phone: [phone] Chloride [Moles/Vol] 102 mmol/L 98 - 10 7 mmol/L [facility] Work Phone: [phone] CO2 [Moles/Vol] 32 mmol/L High 22 - 30 mmol/L [facility] Work Phone: [phone] Creatinine [Mass/Vol] 1.48 mg/dL High 0.52 - 1.25 mg/dL [facility] Work Phone: [phone] IF NonAfrican Gambian 36.8 mL/min Abnormal >60 [facility] Work Phone: [phone] Comment on above: KDIGO guidelines pro vide [...] 6.1 g/dL Low 6.3 - 8.2 g/dL [facility] Work Phone: GFR/1.73 sq M.predicted among blacks MDRD (S/P/Bld) [Vol rate/Area] 42.7 mL/min/{1.73_m2} Abnormal >60 [facility] Work Phone: [phone] Glucose [Mass/Vol] 242 mg/dL High 70 - 100 mg/dL [facility] Work Phone: [phone] Interpretation and review of laboratory results Abnormal [facility] Work Phone: [phone] Potassium [Moles/Vol] 4.3 mmol/L 3.5 - 5.1 mmol/L [facility] Work Phone: [phone] Sodium [Moles/Vol] 137 mmol/L 135 - 145 mmol/L [facility] Work Phone: [phone] Urea nitrogen (BldV) [Mass/Vol] 27 mg/dL High 9 - 20 mg/dL [facility] Work Phone: [phone] Test Performed by [facility], [address] [place], [place] [address] [facility] Work Phone: [phone] Hemogram w/ Autodiffon 05-06 Erythrocyte distribution width (RBC) [Ratio] 13.5 % Normal 11.5-14.5 [facility] Comment on above: Performed By: #### ROMEO LOPEZ MDIFF #### [address] [place] [address] #### PCAL #### [address] Hematocrit (Bld) [Volume fraction] 28.0 % Low 35.0-47.0 [facility] Comment on above: Performed By: #### ROMEO LOPEZ MDIFF #### [address] [place] [address] #### PCAL #### [address] Hemoglobin (Bld) [Mass/Vol] 9.4 g/dL Low 11.7-16.0 [facility] Comment on above: Performed By: #### ROMEO LOPEZ MDIFF #### [address] [place] [address] #### PCAL #### [address] MCH (RBC) [Entitic mass] 29.9 pg Normal 26.0-34.0 [facility] Comment on above: Performed By: #### ROMEO LOPEZ MDIFF #### [address] [place] [address] #### PCAL #### [place] [address] [place], [place] MCHC 33.6 % Normal 32.0-36.0 [facility] Comment on above: Performed By: #### C ROMEO DEY MDIFF #### [facility] [address] [place] [address] #### PCAL #### [place] [address] [place], [place] MCV (RBC) [Entitic vol] 89.1 fL Normal 79.0-98.0 [facility] Comment on above: Performed By: #### C ROMEO DEY MDIFF #### [place] [address] [place] [address] #### PCAL #### [place] [address] [place], [place] Platelet mean volume (Bld) [Entitic vol] 6.6 fL Low 7.4-12.4 [facility] Comment on above: Result Comment: MPV is a calculated measurement using platelet volume ratio. Performed By: #### C ROMEO DEY MDIFF #### [place] [address] [place] [address] #### PCAL #### [place] [address] [place], [place] Platelets (Bld) [#/Vol] 171 10*3/uL Normal 140-440 [facility] Comment on above: Performed By: #### C ROMEO DEY MDIFF #### [place] [address] [place] [address] #### PCAL #### [place] [address] [place], [place] RBC (Bld) [#/Vol] 3.14 10*6/uL Low 3.80-5.20 [facility] Comment on above: Performed By: #### C ROMEO DEY MDIFF #### [place] [address] [place] [address] #### PCAL #### [place] [address] [place], [place] WBC (Bld) [#/Vol] 9.2 10*3/uL Normal 3.6-10.7 [facility] Comment on above: Performed By: #### ROMEO LOPEZ MDIFF #### [facility] [address] [place] [address] #### PCAL #### [place] [address] [place], [place] Manual Diffon 05-06-2022 Abs Baso Cnt 0.1 10*3/uL Normal 0.0-0.2 [facility] Comment on above: Performed By: #### ROMEO LOPEZ MDIFF #### [facility] [address] [place] [address] #### PCAL #### [place] [address] [place], [place] Abs Eosin Cnt 0.2 10*3/uL Normal 0.0-0.5 [facility] Comment on above: Performed By: #### ROMEO LOPEZ MDIFF #### [facility] [address] [place] [address] #### PCAL #### [place] [address] [place], [place] Abs Lymph Cnt 1.7 10*3/uL Normal 1.1-4.5 [facility] Comment on above: Performed By: #### ROMEO LOPEZ MDIFF #### [facility] [address] [place] [address] #### PCAL #### [place] [address] [place], [place] Abs Monocyte Cnt 0.6 10*3/uL Normal 0.2-1.1 [facility] Comment on above: Performed By: #### ROMEO LOPEZ MDIFF #### [facility] [address] [place] [address] #### PCAL #### [place] [address] [place] [address] Abs Neutrophile Cnt 6.2 10*3/uL Normal 2.2-8.2 [facility] Comment on above: Performed By: #### ROMEO LOPEZ MDIFF #### [facility] [address] [place] [address] #### PCAL #### [facility] [address], [place] Basophils 1 % Normal 0-2 [facility] Comment on above: Performed By: #### C ROMEO DEY MDIFF #### [facility] [address] [place] [address] #### PCAL #### [facility] [address], [place] Eosinophils 2 % Normal 1-6 [facility] Comment on above: Performed By: #### ROMEO LOPEZ MDIFF #### [facility] [address] [place] [address] #### PCAL #### [facility] [address], [place] Lymphocytes 19 % Low 20-40 [facility] Comment on above: Performed By: #### ROMEO LOPEZ MDIFF #### [facility] [address] [place] [address] #### PCAL #### [facility] [address], [place] Metamyelocytes 2 % Abnormal <1 [facility] Comment on above: Performed By: #### C ROMEO DEY MDIFF #### [facility] [address] [place] [address] #### PCAL #### [facility] [address] [place] [address] Monocytes 7 % Normal 2-10 [facility] Comment on above: Performed By: #### ROMEO LOPEZ MDIFF #### [facility] [address] [place] [address] #### PCAL #### [facility] [address], [place] Myelocytes 2 % Abnormal <1 [facility] Comment on above: Performed By: #### ROMEO LOPEZ MDIFF #### [facility] [address] [place] [address] #### PCAL #### [facility] [address], [place] Ovalocytes Slight Normal [facility] Comment on above: Performed By: #### C ROMEO DEY MDIFF #### [facility] [address] [place] [address] #### PCAL #### [facility] [address], [place] Poikilocytosis Slight Normal [facility] Comment on above: Performed By: #### C ROMEO DEY MDIFF #### [facility] [address] [place] [address] #### PCAL #### [facility] [address], [place] Polychromasia Slight Normal [facility] Comment on above: Performed By: #### C ROMEO DEY MDIFF #### [facility] [address] [place] [address] #### PCAL #### [facility] [address], [place] RBC Morphology ABNORMAL Normal [facility] Comment on above: Performed By: #### C ROMEO DEY MDIFF #### [facility] [address] [place] [address] #### PCAL #### [facility] [address] [place], [place] Seg Neutrophils 67 % Normal 40-80 [facility] Comment on above: Performed By: #### C ROMEO DEY MDIFF #### [facility] [address] [place] [address] #### PCAL #### [facility] [address], [place] Bands 0 % Normal 0-3 [facility] Comment on above: Performed By: #### C ROMEO DEY MDIFF #### [facility] [address] [place] [address] #### PCAL #### [facility] [address] [place] [address] Cells counted 100 Normal [facility] Comment on above: Performed By: #### C ROMEO DEY MDIFF #### [facility] [address] [place] [address] #### PCAL #### [facility] [address] [place] [address] Manual Differentialon 2021 Absolute Baso # 0.1 10*3/uL 0.0 - 0.2 10*3/uL [facility] Work Phone: ) [phone] Absolute Eos # 0.2 10*3/uL 0.0 - 0.5 10*3/uL [facility] Work Phone: 22 Absolute Lymph # 1.7 10*3/uL 1.1 - 4.5 10*3/uL [facility] Work Phone: ) 22 Absolute [place] # 0.6 10*3/uL 0.2 - 1.1 10*3/uL [facility] Work Phone: ) 22 Absolute Neut # 6.2 10*3/uL 2.2 - 8.2 10*3/uL [facility] Work Phone: [phone] Bands 0 % 0 - 3 % [facility] Work Phone: 22 Basophils/100 WBC (Bld) 1 % 0 - 2 % [facility] Work Phone: ) 22 Eosinophils/100 WBC (Bld) 2 % 1 - 6 % [facility] Work Phone: [phone] Interpretation and review of laboratory results Abnormal [facility] Work Phone: ) 22 Lymphocytes/100 WBC (Bld) 19 % Low 20 - 40 % [facility] Work Phone: ) 22 Metamyelocytes 2 % Abnormal <1 [facility] Work Phone: [phone] Monocytes/100 WBC (Bld) 7 % 2 - 10 % [facility] Work Phone: 1 22 Myelocytes 2 % Abnormal <1 [facility] Work Phone: 1 22 Ovalocytes Slight [facility] Work Phone: 1 Poikilocytes Slight [facility] Work Phone: 1 Polychromasia Slight [facility] Work Phone: 1 RBC (Bld) [#/Vol] ABNORMAL [facility] Work Phone: 1 Seg Neutrophils 67 % 40 - 80 % [facility] Work Phone: 1 TOTAL CELLS COUNTED 100 [facility] Work Phone: 1 Test Performed by [facility], [address] [place], [place] [address] [facility] Work Phone: No Panel Informationon 05-06 Blood Culture, Routine No growth at 5 days. [facility] Test Performed by [employer] [facility], [address] [place] [address] [facility] CBC with Auto Differentialon 05-05-2022 Hematocrit (Bld) [Volume fraction] 29.7 % Low 35.0 - 47.0 % [facility] Work Phone: 1 Hemoglobin (Bld) [Mass/Vol] 9.8 g/dL Low 11.7 - 16.0 g/dL [facility] Work Phone: Interpretation and review of laboratory results Abnormal [facility] Work Phone: 1 MCH (RBC) [Entitic mass] 29.6 pg 26.0 - 34.0 pg [facility] Work Phone: MCHC (RBC) [Mass/Vol] 33.2 % 32.0 - 36.0 % [facility] Work Phone: MCV (RBC) [Entitic vol] 89.2 fL 79.0 - 98.0 fL [facility] Work Phone: 1 Platelet distribution width (Bld) [Ratio] 13.4 % 11.5 - 14.5 % [facility] Work Phone: Platelet mean volume (Bld) [Entitic vol] 6.9 fL Low 7.4 - 12.4 fL [facility] Work Phone: [phone] Comment on above: MPV is a calculated measurement using platelet volume ratio. Platelets (Bld) [#/Vol] 135 10*3/uL Low 140 - 440 10*3/uL [facility] Work Phone: [phone] RBC (Bld) [#/Vol] 3.32 10*6/uL Low 3.80 - 5.2 0 10*6/uL [facility] Work Phone: [phone] WBC (Bld) [#/Vol] 7.9 10*3/uL 3.6 - 10.7 10*3/uL [facility] Work Phone: [phone] Test Performed by [facility], [address] [place], [place] [id number] [place] [address] LAB [facility] Work Phone: [phone] Panel with Mg Reflexon 05-05-2022 Calcium [Mass/Vol] 8.7 mg/dL Normal 8.4-10.4 [facility] Comment on above: Performed By: #### C ROMEO DEY MDIFF #### [address] [place] [address] #### PCAL #### [address] [address] ALP [Catalytic activity/Vol] 77 U/L Normal 38-126 [facility] Comment on above: Performed By: #### C ROMEO DEY MDIFF #### [address] [place] [address] #### PCAL #### [address] [address] ALT [Catalytic activity/Vol] 13 U/L Normal 0-34 [facility] Comment on above: Result Comment: The ALT test is performed by an updated assay method. Please note that the reference intervals have been changed and are now sex specific. Performed By: #### C ROMEO DEY MDIFF #### [place] [address] [place] [address] #### PCAL #### [address] Anion gap [Moles/Vol] 4 mmol/L Normal 3-13 [facility] Comment on above: Performed By: #### ROMEO LOPEZ MDIFF #### [facility] [address] [place] [address] #### PCAL #### [facility] [address], [place] AST [Catalytic activity/Vol] 16 U/L Normal 15-46 [facility] Comment on above: Performed By: #### ROMEO LOPEZ MDIFF #### [facility] [address] [place] [address] #### PCAL #### [place] [address] [place], [place] Bilirubin [Mass/Vol] 0.4 mg/dL Normal 0.2-1.3 [facility] Comment on above: Performed By: #### ROMEO LOPEZ MDIFF #### [facility] [address] [place] [address] #### PCAL #### [place] [address] [place], [place] CO2 [Moles/Vol] 31 mmol/L High 22-30 [facility] Comment on above: Performed By: #### ROMEO LOPEZ MDIFF #### [place] [address] [place] [address] #### PCAL #### [place] [address] [place], [place] Creatinine [Mass/Vol] 1.30 mg/dL High 0.52-1.25 [facility] Comment on above: Performed By: #### ROMEO LOPEZ MDIFF #### [facility] [address] [place] [address] #### PCAL #### [place] [address] [place], [place] GFR/1.73 sq M.predicted among blacks MDRD (S/P/Bld) [Vol rate/Area] 50.0 mL/min/{1.73_m2} Abnormal >60 [facility] Comment on above: Performed By: #### ROMEO LOPEZ MDIFF #### [employer] [facility] [address] [place] [address] #### PCAL #### [employer] [address] [address] GFR/1.73 sq M.predicted among non-blacks MDRD (S/P/Bld) [Vol rate/Area] 43.1 mL/min/{1.73_m2} Abnormal >60 [facility] Comment on above: Result Comment: [...] Performed By: #### ROMEO LOPEZ MDIFF #### [employer] [facility] [address] [place] [address] #### PCAL #### [employer] [address] [place] [address] Glucose [Mass/Vol] 245 mg/dL High 70-100 [facility] Comment on above: Performed By: #### ROMEO LOPEZ MDIFF #### [employer] [facility] [address] [place] [address] #### PCAL #### [employer] [address] [address] Protein [Mass/Vol] 6.3 g/dL Normal 6.3-8.2 [facility] Comment on above: Performed By: #### C ROMEO DEY MDIFF #### [facility] [address] [place] [address] #### PCAL #### [place] [address] [facility] [place] [address] Urea nitrogen [Mass/Vol] 26 mg/dL High 9-20 [facility] Comment on above: Performed By: #### ROMEO LOPEZ MDIFF #### [facility] [address] [place] [address] #### PCAL #### [place] [address] [facility] [place] [address] Potassium [Moles/Vol] 4.6 mmol/L Normal 3.5-5.1 [facility] Comment on above: Performed By: #### C ROMEO DEY MDIFF #### [place] [address] [place] [address] #### PCAL #### [place] [address] [facility] [place] Albumin [Mass/Vol] 3.5 g/dL Normal 3.5-5.0 [facility] Comment on above: Performed By: #### ROMEO LOPEZ MDIFF #### [facility] [address] [place] [address] #### PCAL #### [place] [address] [address] [facility] [place] Chloride [Moles/Vol] 104 mmol/L Normal 98-107 [facility] Comment on above: Performed By: #### ROMEO LOPEZ MDIFF #### [facility] [address] [place] [address] #### PCAL #### [place] [address] [facility] [place] [address] Sodium [Moles/Vol] 139 mmol/L Normal 135-145 [facility] Comment on above: Performed By: #### C ROMEO DEY MDIFF #### [facility] [address] [place] [address] #### PCAL #### [place] [address] [place] [address] Comprehensive Metabolic Pane l w/ Reflex to MGon 05-05-2022 Albumin [Mass/Vol] 3.5 g/dL 3.5 - 5.0 g/dL [facility] Work Phone: [phone] ALP (Bld) [Catalytic activity/Vol] 77 U/L 38 - 126 U/L [facility] Work Phone: [phone] ALT [Catalytic activity/Vol] 13 U/L 0 - 34 U/L [facility] Work Phone: [phone] Comment on above: The ALT test is perf ormed by an updated assay method. Please note that the reference intervals have been changed and are now sex specific. Anion gap [Moles/Vol] 4 mmol/L 3 - 13 mmol/L [facility] Work Phone: [phone] AST [Catalytic activity/Vol] 16 U/L 15 - 46 U/L [facility] Work Phone: [phone] Bilirubin [Mass/Vol] 0.4 mg/dL 0.2 - 1 .3 mg/dL [facility] Work Phone: [phone] Calcium [Mass/Vol] 8.7 mg/dL 8.4 - 10. 4 mg/dL [facility] Work Phone: [phone] Chloride [Moles/Vol] 104 mmol/L 98 - 10 7 mmol/L [facility] Work Phone: [phone] CO2 [Moles/Vol] 31 mmol/L High 22 - 30 mmol/L [facility] Work Phone: [phone] Creatinine [Mass/Vol] 1.3 mg/dL High 0.52 - 1.25 mg/dL [facility] Work Phone: [phone] EGFR IF NonAfrican Gambian 43.1 mL/min Abnormal >60 [facility] Work Phone: Comment [...] fraction] 6.3 g/dL 6.3 - 8.2 g/dL [facility] Work Phone: GFR/1.73 sq M.predicted among blacks MDRD (S/P/Bld) [Vol rate/Area] 50.0 mL/min/{1.73_m2} Abnormal >60 [facility] Work Phone: [phone] Glucose [Mass/Vol] 245 mg/dL High 70 - 100 mg/dL [facility] Work Phone: [phone] Interpretation and review of laboratory results Abnormal [facility] Work Phone: [phone] Potassium [Moles/Vol] 4.6 mmol/L 3.5 - 5.1 mmol/L [facility] Work Phone: [phone] Sodium [Moles/Vol] 139 mmol/L 135 - 145 mmol/L [facility] Work Phone: Urea nitrogen (BldV) [Mass/Vol] 26 mg/dL High 9 - 20 mg/dL [facility] Work Phone: Test Performed by [facility], [address] [place], [place] [address] [facility] Work Phone: Hemogram w/ Autodiffon 05-05 Erythrocyte distribution width (RBC) [Ratio] 13.4 % Normal 11.5-14.5 [facility] Comment on above: Performed By: #### C ROMEO DEY MDIFF #### [facility] [employer] [facility] [address] [place] [address] #### PCAL #### [facility] [employer] [address] [address] Hematocrit (Bld) [Volume fraction] 29.7 % Low 35.0-47.0 [facility] Comment on above: Performed By: #### C ROMEO DEY MDIFF #### [facility] [address] [place] [address] #### PCAL #### [facility] [address], [place] Hemoglobin (Bld) [Mass/Vol] 9.8 g/dL Low 11.7-16.0 [facility] Comment on above: Performed By: #### C ROMEO DEY MDIFF #### [facility] [address] [place] [address] #### PCAL #### [place] [address] [place], [place] MCH (RBC) [Entitic mass] 29.6 pg Normal 26.0-34.0 [facility] Comment on above: Performed By: #### C ROMEO DEY MDIFF #### [place] [address] [place] [address] #### PCAL #### [place] [address] [place], [place] MCHC 33.2 % Normal 32.0-36.0 [facility] Comment on above: Performed By: #### C ROMOE DEY MDIFF #### [place] [address] [place] [address] #### PCAL #### [address] MCV (RBC) [Entitic vol] 89.2 fL Normal 79.0-98.0 [facility] Comment on above: Performed By: #### C ROMEO DEY MDIFF #### [place] [address] [place] [address] #### PCAL #### [address] Platelet mean volume (Bld) [Entitic vol] 6.9 fL Low 7.4-12.4 [facility] Comment on above: Result Comment: MPV is a calculated measurement using platelet volume ratio. Performed By: #### C DINA3M, HEMDF, MDIFF #### [facility] [address] [place] [address] #### PCAL #### [place] [address] [place], [place] Platelets (Bld) [#/Vol] 135 10*3/uL Low 140-440 [facility] Comment on above: Performed By: #### C ROMEO DEY MDIFF #### [facility] [address] [place] #### PCAL #### [place] [address] [place], [place] RBC (Bld) [#/Vol] 3.32 10*6/uL Low 3.80-5.20 [facility] Comment on above: Performed By: #### ROMEO LOPEZ MDIFF #### [place] [address] [place] #### PCAL #### [place] [address] [place], [place] WBC (Bld) [#/Vol] 7.9 10*3/uL Normal 3.6-10.7 [facility] Comment on above: Performed By: #### ROMEO LOPEZ MDIFF #### [place] [address] [place] [address] #### PCAL #### [place] [address] [place], [place] Manual Diffon 05-05-2022 Abs Eosin Cnt 0.2 10*3/uL Normal 0.0-0.5 [facility] Comment on above: Performed By: #### ROMEO LOPEZ MDIFF #### [facility] [address] [place] [address] #### PCAL #### [address] Abs Lymph Cnt 1.6 10*3/uL Normal 1.1-4.5 [facility] Comment on above: Performed By: #### ROMEO LOPEZ MDIFF #### [facility] [address] [place] [address] #### PCAL #### [facility] [address], [place] Abs Monocyte Cnt 0.6 10*3/uL Normal 0.2-1.1 [facility] Comment on above: Performed By: #### C ROMEO DEY MDIFF #### [facility] [address] [place] [address] #### PCAL #### [place] [address] [place], [place] Abs Neutrophile Cnt 5.1 10*3/uL Normal 2.2-8.2 [facility] Comment on above: Performed By: #### C ROMEO DEY MDIFF #### [facility] [address] [place] [address] #### PCAL #### [place] [address] [place], [place] Eosinophils 3 % Normal 1-6 [facility] Comment on above: Performed By: #### C ROMEO DEY MDIFF #### [facility] [address] [place] [address] #### PCAL #### [place] [address] [place], [place] Lymphocytes 20 % Normal 20-40 [facility] Comment on above: Performed By: #### C ROMEO DEY MDIFF #### [facility] [address] [place] [address] #### PCAL #### [place] [address] [place], [place] Metamyelocytes 2 % Abnormal <1 [facility] Comment on above: Performed By: #### C ROMEO DEY MDIFF #### [facility] [address] [place] [address] #### PCAL #### [place] [address] [place], [place] Monocytes 7 % Normal 2-10 [facility] Comment on above: Performed By: #### C ROMEO DEY MDIFF #### [facility] [address] [place] [address] #### PCAL #### [facility] [address] [place], [place] Myelocytes 3 % Abnormal <1 [facility] Comment on above: Performed By: #### C ROMEO DEY MDIFF #### [facility] [address] [place] [address] #### PCAL #### [facility] [address] [place], [place] Ovalocytes Slight Normal [facility] Comment on above: Performed By: #### C ROMEO DEY MDIFF #### [facility] [address] [place] [address] #### PCAL #### [facility] [place], [place] Poikilocytosis Slight Normal [facility] Comment on above: Performed By: #### C ROMEO DEY MDIFF #### [facility] [address] [place] [address] #### PCAL #### [facility] [place] Polychromasia Slight Normal [facility] Comment on above: Performed By: #### C ROMEO DEY MDIFF #### [facility] [address] [place] [address] #### PCAL #### [facility] [place] RBC Morphology ABNORMAL Normal [facility] Comment on above: Performed By: #### C ROMEO DEY MDIFF #### [facility] [address] [place] [address] #### PCAL #### [facility] [place] Seg Neutrophils 65 % Normal 40-80 [facility] Comment on above: Performed By: #### C ROMEO EDY MDIFF #### [facility] [address] [place] [address] #### PCAL #### [facility] [address] [place], [place] Abs Baso Cnt 0.0 10*3/uL Normal 0.0-0.2 [facility] Comment on above: Performed By: #### C DINA3ROMEO Rome, MDIFF #### [facility] [address] [place] [address] #### PCAL #### [facility] [address] [place], [place] Bands 0 % Normal 0-3 [facility] Comment on above: Performed By: #### C ROMEO DEY MDIFF #### [facility] [address] [place] [address] #### PCAL #### [facility] [place] Basophils 0 % Normal 0-2 [facility] Comment on above: Performed By: #### C ROMEO DEY, MDIFF #### [facility] [address] [place] [address] #### PCAL #### [facility] [place] Cells counted 100 Normal [facility] Comment on above: Performed By: #### C ROMEO DEY MDIFF #### [facility] [address] [place] [address] #### PCAL #### [place] [address] [address] [place], [place] Manual Differentialon 2021 Absolute Baso # 0.0 10*3/uL 0.0 - 0.2 10*3/uL [facility] Work Phone: Absolute Eos # 0.2 10*3/uL 0.0 - 0.5 10*3/uL [facility] Work Phone: Absolute Lymph # 1.6 10*3/uL 1.1 - 4.5 10*3/uL [facility] Work Phone: Absolute [place] # 0.6 10*3/uL 0.2 - 1.1 10*3/uL [facility] Work Phone: [phone] Absolute Neut # 5.1 10*3/uL 2.2 - 8.2 10*3/uL [facility] Work Phone: [phone] Bands 0 % 0 - 3 % [facility] Work Phone: [phone] Basophils/100 WBC (Bld) 0 % 0 - 2 % [facility] Work Phone: [phone] Eosinophils/100 WBC (Bld) 3 % 1 - 6 % [facility] Work Phone: [phone] Interpretation and review of laboratory results Abnormal [facility] Work Phone: [phone] Lymphocytes/100 WBC (Bld) 20 % 20 - 40 % [facility] Work Phone: 1 22 Metamyelocytes 2 % Abnormal <1 [facility] Work Phone: 1 22 Monocytes/100 WBC (Bld) 7 % 2 - 10 % [facility] Work Phone: 1 22 Myelocytes 3 % Abnormal <1 [facility] Work Phone: 1 22 Ovalocytes Slight [facility] Work Phone: 1 22 Poikilocytes Slight [facility] Work Phone: [phone] Polychromasia Slight [facility] Work Phone: 1 22 RBC (Bld) [#/Vol] ABNORMAL [facility] Work Phone: [phone] Seg Neutrophils 65 % 40 - 80 % [facility] Work Phone: 1 22 TOTAL CELLS COUNTED 100 [facility] Work Phone: 1 22 Test Performed by [facility], [address] [place], [place] [address] [facility] Work Phone: CBC with Auto Differentialon 05-04-2022 Hematocrit (Bld) [Volume fraction] 27.5 % Low 35.0 - 47.0 % [facility] Work Phone: [phone] Hemoglobin (Bld) [Mass/Vol] 9.2 g/dL Low 11.7 - 16.0 g/dL [facility] Work Phone: [phone] Interpretation and review of laboratory results Abnormal [facility] Work Phone: 1 MCH (RBC) [Entitic mass] 30.2 pg 26.0 - 34.0 pg [facility] Work Phone: MCHC (RBC) [Mass/Vol] 33.6 % 32.0 - 36.0 % [facility] Work Phone: 1 MCV (RBC) [Entitic vol] 89.8 fL 79.0 - 98.0 fL [facility] Work Phone: Platelet distribution width (Bld) [Ratio] 13.6 % 11.5 - 14.5 % [facility] Work Phone: Platelet mean volume (Bld) [Entitic vol] 7.6 fL 7.4 - 12.4 fL [facility] Work Phone: Comment on above: MPV is a calculated measurement using platelet volume ratio. Platelets (Bld) [#/Vol] 90 10*3/uL Low 140 - 440 10*3/uL [facility] Work Phone: 1 RBC (Bld) [#/Vol] 3.06 10*6/uL Low 3.80 - 5.2 0 10*6/uL [facility] Work Phone: WBC (Bld) [#/Vol] 6.1 10*3/uL 3.6 - 10.7 10*3/uL [facility] Work Phone: 1 Test Performed by [facility], [address] [place], [place] [address] [facility] Work Phone: Comp Panel with Mg Reflexon 05-04-2022 ALP [Catalytic activity/Vol] 71 U/L Normal 38-126 [facility] Comment on above: Performed By: #### C ROMEO DEY MDIFF #### [facility] [employer] [facility] [address] [place] [address] #### PCAL #### [facility] [employer] [facility] [address] [place] [address] ALT [Catalytic activity/Vol] 11 U/L Normal 0-34 [facility] Comment on above: Result Comment: The ALT test is performed by an updated assay method. Please note that the reference intervals have been changed and are now sex specific. Performed By: #### ROMEO LOPEZ MDIFF #### [facility] [address] [place] [address] #### PCAL #### [place] [address] [address] [facility] [place] Calcium [Mass/Vol] 8.4 mg/dL Normal 8.4-10.4 [facility] Comment on above: Performed By: #### ROMEO LOPEZ MDIFF #### [facility] [address] [place] [address] #### PCAL #### [place] [address] [place] [address] Glucose [Mass/Vol] 268 mg/dL High 70-100 [facility] Comment on above: Performed By: #### ROMEO LOPEZ MDIFF #### [facility] [address] [place] [address] #### PCAL #### [place] [address] [address] [facility] [place] Urea nitrogen [Mass/Vol] 30 mg/dL High 9-20 [facility] Comment on above: Performed By: #### ROMEO LOPEZ MDIFF #### [place] [address] [place] [address] #### PCAL #### [place] [address] [address] [facility] [place] Anion gap [Moles/Vol] 5 mmol/L Normal 3-13 [facility] Comment on above: Performed By: #### C ROMEO DEY MDIFF #### [facility] [address] [place] [address] #### PCAL #### [place] [address] [address] [facility] [place], [place] AST [Catalytic activity/Vol] 14 U/L Low 15-46 [facility] Comment on above: Performed By: #### ROMEO LOPEZ MDIFF #### [facility] [address] [place] [address] #### PCAL #### [place] [address] [place] [address] Bilirubin [Mass/Vol] 0.3 mg/dL Normal 0.2-1.3 [facility] Comment on above: Performed By: #### ROMEO LOPEZ MDIFF #### [facility] [address] [place] [address] #### PCAL #### [address] [address] [address] [place] [address] CO2 [Moles/Vol] 28 mmol/L Normal 22-30 [facility] Comment on above: Performed By: #### C ROMEO DEY MDIFF #### [facility] [address] [place] [address] #### PCAL #### [address] [address] Creatinine [Mass/Vol] 1.20 mg/dL Normal 0.52-1.25 [facility] Comment on above: Performed By: #### C ROMEO DEY MDIFF #### [facility] [address] [place] [address] #### PCAL #### [address] [address] GFR/1.73 sq M.predicted among blacks MDRD (S/P/Bld) [Vol rate/Area] 55.0 mL/min/{1.73_m2} Abnormal >60 [facility] Comment on above: Performed By: #### C ROMEO DEY MDIFF #### [place] [address] [place] [address] #### PCAL #### [address] [address] GFR/1.73 sq M.predicted among non-blacks MDRD (S/P/Bld) [Vol rate/Area] 47.5 mL/min/{1.73_m2} Abnormal >60 [facility] Comment on above: Result Comment: [...] By: #### C ROMEO DEY MDIFF #### [facility] [address] [place] [address] #### PCAL #### [address] Protein [Mass/Vol] 5.8 g/dL Low 6.3-8.2 [facility] Comment on above: Performed By: #### ROMEO LOPEZ MDIFF #### [address] [place] [address] #### PCAL #### [address] Potassium [Moles/Vol] 4.7 mmol/L Normal 3.5-5.1 [facility] Comment on above: Performed By: #### ROMEO LOPEZ MDIFF #### [address] [place] [address] #### PCAL #### [address] Sodium [Moles/Vol] 137 mmol/L Normal 135-145 [facility] Comment on above: Performed By: #### ROMEO LOPEZ MDIFF #### [place] [address] [place] [address] #### PCAL #### [address] Albumin [Mass/Vol] 3.1 g/dL Low 3.5-5.0 [facility] Comment on above: Performed By: #### C ROMEO DEY MDIFF #### [facility] [address] [place] [address] #### PCAL #### [facility] [address] [place], [place] Chloride [Moles/Vol] 104 mmol/L Normal 98-107 [facility] Comment on above: Performed By: #### C ROMEO DEY MDIFF #### [facility] [address] [place] [address] #### PCAL #### [facility] [address] [place], [place] Comprehensive Metabolic Pane l w/ Reflex to MGon 05-04-2022 Albumin [Mass/Vol] 3.1 g/dL Low 3.5 - 5.0 g/dL [facility] Work Phone: [phone] ALP (Bld) [Catalytic activity/Vol] 71 U/L 38 - 126 U/L [facility] Work Phone: [phone] ALT [Catalytic activity/Vol] 11 U/L 0 - 34 U/L [facility] Work Phone: [phone] Comment on above: The ALT test is perf ormed by an updated assay method. Please note that the reference intervals have been changed and are now sex specific. Anion gap [Moles/Vol] 5 mmol/L 3 - 13 mmol/L [facility] Work Phone: [phone] AST [Catalytic activity/Vol] 14 U/L Low 15 - 46 U/L [facility] Work Phone: [phone] Bilirubin [Mass/Vol] 0.3 mg/dL 0.2 - 1 .3 mg/dL [facility] Work Phone: [phone] Calcium [Mass/Vol] 8.4 mg/dL 8.4 - 10. 4 mg/dL [facility] Work Phone: [phone] Chloride [Moles/Vol] 104 mmol/L 98 - 10 7 mmol/L [facility] Work Phone: [phone] CO2 [Moles/Vol] 28 mmol/L 22 - 30 mmol/L [facility] Work Phone: [phone] Creatinine [Mass/Vol] 1.2 mg/dL 0.52 - 1.25 mg/dL [facility] Work Phone: [phone] EGFR IF NonAfrican [place]ian 47.5 mL/min Abnormal >60 [facility] Work Phone: [phone] Comment on above: KDIGO guidelines pro vide [...] 5.8 g/dL Low 6.3 - 8.2 g/dL [facility] Work Phone: [phone] GFR/1.73 sq M.predicted among blacks MDRD (S/P/Bld) [Vol rate/Area] 55.0 mL/min/{1.73_m2} Abnormal >60 [facility] Work Phone: [phone] Glucose [Mass/Vol] 268 mg/dL High 70 - 100 mg/dL [facility] Work Phone: [phone] Interpretation and review of laboratory results Abnormal [facility] Work Phone: [phone] Potassium [Moles/Vol] 4.7 mmol/L 3.5 - 5.1 mmol/L [facility] Work Phone: [phone] Sodium [Moles/Vol] 137 mmol/L 135 - 145 mmol/L [facility] Work Phone: [phone] Urea nitrogen (BldV) [Mass/Vol] 30 mg/dL High 9 - 20 mg/dL [facility] Work Phone: Test Performed by [facility], [address] [place] [address] [facility] Work Phone: Hemogram w/ Autodiffon 05-04 Erythrocyte distribution width (RBC) [Ratio] 13.6 % Normal 11.5-14.5 [facility] Comment on above: Performed By: #### C ROMEO DEY MDIFF #### [facility] [address] [place] [address] #### PCAL #### [place] [address] [place], [place] Hematocrit (Bld) [Volume fraction] 27.5 % Low 35.0-47.0 [facility] Comment on above: Performed By: #### ROMEO LOPEZ MDIFF #### [place] [address] [place] [address] #### PCAL #### [place] [address] [place] Hemoglobin (Bld) [Mass/Vol] 9.2 g/dL Low 11.7-16.0 [facility] Comment on above: Performed By: #### ROMEO LOPEZ MDIFF #### [place] [address] [place] [address] #### PCAL #### [address] MCH (RBC) [Entitic mass] 30.2 pg Normal 26.0-34.0 [facility] Comment on above: Performed By: #### C ROMEO DEY MDIFF #### [place] [address] [place] [address] #### PCAL #### [address] MCHC 33.6 % Normal 32.0-36.0 [facility] Comment on above: Performed By: #### C ROMEO DEY MDIFF #### [place] [address] [place] [address] #### PCAL #### [facility] [address] [place], [place] MCV (RBC) [Entitic vol] 89.8 fL Normal 79.0-98.0 [facility] Comment on above: Performed By: #### C ROMEO DEY MDIFF #### [facility] [address] [place] [address] #### PCAL #### [place] [address] [address] [place], [place] Platelet mean volume (Bld) [Entitic vol] 7.6 fL Normal 7.4-12.4 [facility] Comment on above: Result Comment: MPV is a calculated measurement using platelet volume ratio. Performed By: #### C ROMEO DEY MDIFF #### [place] [address] [place] [address] #### PCAL #### [place] [address] [address] [place], [place] Platelets (Bld) [#/Vol] 90 10*3/uL Low 140-440 [facility] Comment on above: Performed By: #### C ROMEO DEY MDIFF #### [facility] [address] [place] [address] #### PCAL #### [place] [address] [address] [place], [place] RBC (Bld) [#/Vol] 3.06 10*6/uL Low 3.80-5.20 [facility] Comment on above: Performed By: #### C ROMEO DEY MDIFF #### [place] [address] [place] [address] #### PCAL #### [place] [address] [address] [place] WBC (Bld) [#/Vol] 6.1 10*3/uL Normal 3.6-10.7 [facility] Comment on above: Performed By: #### C ROMEO DEY MDIFF #### [place] [address] [place] [address] #### PCAL #### [place] [address] [address] [place], [place] Manual Diffon 05-04-2022 Abs Baso Cnt 0.1 10*3/uL Normal 0.0-0.2 [facility] Comment on above: Performed By: #### C ROMEO DEY MDIFF #### [facility] [address] [place] [address] #### PCAL #### [place] [address] [address] [place], [place] Abs Eosin Cnt 0.4 10*3/uL Normal 0.0-0.5 [facility] Comment on above: Performed By: #### ROMEO LOPEZ MDIFF #### [place] [address] [place] #### PCAL #### [place] [address] [address] [place], [place] Abs Lymph Cnt 1.8 10*3/uL Normal 1.1-4.5 [facility] Comment on above: Performed By: #### ROMEO LOPEZ MDIFF #### [facility] [address] [place] [address] #### PCAL #### [address] [place], [place] Abs Monocyte Cnt 0.2 10*3/uL Normal 0.2-1.1 [facility] Comment on above: Performed By: #### ROMEO LOPEZ MDIFF #### [facility] [address] [place] [address] #### PCAL #### [address] Abs Neutrophile Cnt 3.4 10*3/uL Normal 2.2-8.2 [facility] Comment on above: Performed By: #### ROMEO LOPEZ MDIFF #### [place] [address] [place] #### PCAL #### [place] [address] [place], [place] Anisocytosis Slight Normal [facility] Comment on above: Performed By: #### C ROMEO DEY MDIFF #### [facility] [address] [place] [address] #### PCAL #### [facility] [address] [place], [place] Basophils 2 % Normal 0-2 [facility] Comment on above: Performed By: #### C ROMEO DEY MDIFF #### [facility] [address] [place] [address] #### PCAL #### [facility] [address] [place], [place] James Cells Slight Normal [facility] Comment on above: Performed By: #### C ROMEO DEY MDIFF #### [facility] [address] [place] [address] #### PCAL #### [facility] [address] [place], [place] Eosinophils 7 % High 1-6 [facility] Comment on above: Performed By: #### C ROMEO DEY MDIFF #### [facility] [address] [place] [address] #### PCAL #### [facility] [address] [place] Hypochromia Slight Normal [facility] Comment on above: Performed By: #### C ROMEO DEY MDIFF #### [facility] [address] [place] [address] #### PCAL #### [facility] [address] [place] Lymphocytes 30 % Normal 20-40 [facility] Comment on above: Performed By: #### C ROMEO DEY MDIFF #### [facility] [address] [place] [address] #### PCAL #### [facility] [address] [place], [place] Metamyelocytes 1 % Abnormal <1 [facility] Comment on above: Performed By: #### C ROMEO DEY MDIFF #### [facility] [address] [place] [address] #### PCAL #### [facility] [address] [place] [address] Monocytes 3 % Normal 2-10 [facility] Comment on above: Performed By: #### C ROMEO DEY MDIFF #### [facility] [address] [place] [address] #### PCAL #### [facility] [address] [place], [place] Myelocytes 2 % Abnormal <1 [facility] Comment on above: Performed By: #### C ROMEO DEY MDIFF #### [facility] [address] [place] [address] #### PCAL #### [place] [address] [address] [place] Ovalocytes Slight Normal [facility] Comment on above: Performed By: #### C ROMEO DEY MDIFF #### [facility] [address] [place] [address] #### PCAL #### [place] [address] [address] [place] Poikilocytosis Slight Normal [facility] Comment on above: Performed By: #### C ROMEO DEY MDIFF #### [facility] [address] [place] [address] #### PCAL #### [facility] [address] [place] Polychromasia Slight Normal [facility] Comment on above: Performed By: #### C ROMEO DEY MDIFF #### [facility] [address] [place] [address] #### PCAL #### [place] [address] [address] [place] RBC Morphology ABNORMAL Normal [facility] Comment on above: Performed By: #### C ROMEO DEY MDIFF #### [facility] [address] [place] [address] #### PCAL #### [facility] [address] [place] [address] Seg Neutrophils 55 % Normal 40-80 [facility] Comment on above: Performed By: #### C ROMEO DEY MDIFF #### [facility] [address] [place] [address] #### PCAL #### [facility] [address] [place] [address] Bands 0 % Normal 0-3 [facility] Comment on above: Performed By: #### C ROMEO DEY MDIFF #### [facility] [address] [place] [address] #### PCAL #### [facility] [address] [place] [address] Cells counted [address] [facility] Comment on above: Performed By: #### C ROMEO DEY MDIFF #### [facility] [address] [place] [address] #### PCAL #### [facility] [place] [address] Manual Differentialon 2021 Absolute Baso # 0.1 10*3/uL 0.0 - 0.2 10*3/uL [facility] Work Phone: 22 Absolute Eos # 0.4 10*3/uL 0.0 - 0.5 10*3/uL [facility] Work Phone: 22 Absolute Lymph # 1.8 10*3/uL 1.1 - 4.5 10*3/uL [facility] Work Phone: 22 Absolute [place] # 0.2 10*3/uL 0.2 - 1.1 10*3/uL [facility] Work Phone: 22 Absolute Neut # 3.4 10*3/uL 2.2 - 8.2 10*3/uL [facility] Work Phone: 22 Anisocytosis Slight [facility] Work Phone: 22 Bands 0 % 0 - 3 % [facility] Work Phone: [phone] Basophils/100 WBC (Bld) 2 % 0 - 2 % [facility] Work Phone: 1 22 James Cells Slight [facility] Work Phone: 1 22 Eosinophils/100 WBC (Bld) 7 % High 1 - 6 % [facility] Work Phone: 1 22 Hypochromia Slight [facility] Work Phone: [phone] 22 Interpretation and review of laboratory results Abnormal [facility] Work Phone: 1 22 Lymphocytes/100 WBC (Bld) 30 % 20 - 40 % [facility] Work Phone: 1 22 Metamyelocytes 1 % Abnormal <1 [facility] Work Phone: 1 22 Monocytes/100 WBC (Bld) 3 % 2 - 10 % [facility] Work Phone: 1 22 Myelocytes 2 % Abnormal <1 [facility] Work Phone: 1 22 Ovalocytes Slight [facility] Work Phone: 1 22 Poikilocytes Slight [facility] Work Phone: 1 22 Polychromasia Slight [facility] Work Phone: 1 22 RBC (Bld) [#/Vol] ABNORMAL [facility] Work Phone: 1 22 Seg Neutrophils 55 % 40 - 80 % [facility] Work Phone: 1 22 TOTAL CELLS COUNTED 100 [facility] Work Phone: 1 22 Test Performed by [facility], [address] [place], [place] [id number] [place] [address] [facility] Work Phone: 1 22 Procalcitoninon 05-04-2022 Procalcitonin 6.49 ng/mL High 0.00-0.09 [facility] [employer] [facility] Comment on above: Performed By: #### L ACTS #### [facility] [address] [place] [address] Interpretation See Below [facility] Work Phone: 1 22 Comment on above: PCT <0.50 = Low risk of severe sepsis and/or septic shock. PCT >2.00 = High risk of severe sepsis and/or septic shock. Interpretation and review of laboratory results Abnormal [facility] Work Phone: Procalcitonin 6.49 ng/mL High 0.00 - 0.09 ng/mL [facility] Work Phone: [phone] Test Performed by [facility], [address] [place] [address] [facility] Work Phone: [phone] CBC with Auto Differentialon 05-03-2022 MCHC (RBC) [Mass/Vol] 33.2 % 32.0 - 36.0 % [facility] Work Phone: [phone] Platelet distribution width (Bld) [Ratio] 13.8 % 11.5 - 14.5 % [facility] Work Phone: [phone] CULTURE URINEon 05-03-2022 CULTURE URINE CULTURE URINE --> Status: F Normal urogenital krys present. 1 Organism Escherichia coli >100,000 CFU/ml 1 Organism Antibiotic Result Intrp Ampicillin([facility]) <= 2 S Cefazolin([facility]) <= 4 S Ceftriaxone([facility]) <= 1 S Cefepime(ASHU) <= 1 S Aztreonam([facility]) <= 1 S Amoxicillin/Clavulanic Acid([facility]) <= 2 S Ampicillin/Sulbactam(DC C) <= 2 S Pip/Tazobactam([facility]) <= 4 S Meropenem([facility]) <= 0.25 S Ciprofloxacin([facility]) <= 0.25 S Trimeth/Sulfa([facility]) >= 320 R Nitrofurantoin([facility]) <= 16 S Gentamicin([facility]) <= 1 S Amikacin([facility]) <= 2 S Normal [facility] Comment on above: Performed By: #### L ACTS #### [facility] [address] [place] [address] Comp Panel with Mg Reflexon 05-03-2022 Calcium [Mass/Vol] 8.1 mg/dL Low 8.4-10.4 [facility] Comment on above: Performed By: #### L ACTS #### [facility] [address] [place] [address] ALP [Catalytic activity/Vol] 78 U/L Normal 38-126 [facility] Comment on above: Performed By: #### L ACTS #### [facility] [address] [place] [address] ALT [Catalytic activity/Vol] 12 U/L Normal 0-34 [facility] Comment on above: Result Comment: The ALT test is performed by an updated assay method. Please note that the reference intervals have been changed and are now sex specific. Performed By: #### L ACTS #### [facility] [address] [place] [address] Anion gap [Moles/Vol] 3 mmol/L Normal 3-13 [facility] Comment on above: Performed By: #### L ACTS #### [facility] [address] [place] [address] AST [Catalytic activity/Vol] 15 U/L Normal 15-46 [facility] Comment on above: Performed By: #### L ACTS #### [facility] [address] [place] [address] Bilirubin [Mass/Vol] 0.3 mg/dL Normal 0.2-1.3 [facility] Comment on above: Performed By: #### L ACTS #### [facility] [address] [place] [address] CO2 [Moles/Vol] 30 mmol/L Normal 22-30 [facility] Comment on above: Performed By: #### L ACTS #### [facility] [address] [place] [address] Creatinine [Mass/Vol] 1.51 mg/dL High 0.52-1.25 [facility] Comment on above: Performed By: #### L ACTS #### [facility] [address] [place] [address] GFR/1.73 sq M.predicted among blacks MDRD (S/P/Bld) [Vol rate/Area] 41.7 mL/min/{1.73_m2} Abnormal >60 [facility] Comment on above: Performed By: #### L ACTS #### [facility] [address] [place] [address] GFR/1.73 sq M.predicted among non-blacks MDRD (S/P/Bld) [Vol rate/Area] 36.0 mL/min/{1.73_m2} Abnormal >60 [facility] Comment on above: Result Comment: [...] secretion. Performed By: #### L ACTS #### [facility] [address] [place] [address] Glucose [Mass/Vol] 255 mg/dL High 70-100 [facility] Comment on above: Performed By: #### L ACTS #### [facility] [address] [place] [address] Protein [Mass/Vol] 5.7 g/dL Low 6.3-8.2 [facility] Comment on above: Performed By: #### L ACTS #### [facility] [address] [place] [address] Urea nitrogen [Mass/Vol] 33 mg/dL High 9-20 [facility] Comment on above: Performed By: #### L ACTS #### [facility] [address] [place] [address] Potassium [Moles/Vol] 4.5 mmol/L Normal 3.5-5.1 [facility] Comment on above: Performed By: #### L ACTS #### [facility] [address] [place] [address] Albumin [Mass/Vol] 3.2 g/dL Low 3.5-5.0 [facility] Comment on above: Performed By: #### L ACTS #### [facility] [address] [place] [address] Chloride [Moles/Vol] 103 mmol/L Normal 98-107 [facility] Comment on above: Performed By: #### L ACTS #### [facility] [address] [place] [address] Sodium [Moles/Vol] 136 mmol/L Normal 135-145 [facility] Comment on above: Performed By: #### L ACTS #### [facility] [address] [place] [address] Comprehensive Metabolic Pane l w/ Reflex to MGon 05-03-2022 Albumin [Mass/Vol] 3.2 g/dL Low 3.5 - 5.0 g/dL [facility] Work Phone: ALP (Bld) [Catalytic activity/Vol] 78 U/L 38 - 126 U/L [facility] Work Phone: [phone] ALT [Catalytic activity/Vol] 12 U/L 0 - 34 U/L [facility] Work Phone: Comment on above: The ALT test is perf ormed by an updated assay method. Please note that the reference intervals have been changed and are now sex specific. Anion gap [Moles/Vol] 3 mmol/L 3 - 13 mmol/L [facility] Work Phone: AST [Catalytic activity/Vol] 15 U/L 15 - 46 U/L [facility] Work Phone: Bilirubin [Mass/Vol] 0.3 mg/dL 0.2 - 1 .3 mg/dL [facility] Work Phone: [phone] Calcium [Mass/Vol] 8.1 mg/dL Low 8.4 - 10. 4 mg/dL [facility] Work Phone: [phone] Chloride [Moles/Vol] 103 mmol/L 98 - 10 7 mmol/L [facility] Work Phone: [phone] [phone] [Moles/Vol] 30 mmol/L 22 - 30 mmol/L [facility] Work Phone: [phone] Creatinine [Mass/Vol] 1.51 mg/dL High 0.52 - 1.25 mg/dL [facility] Work Phone: [phone] EGFR IF NonAfrican Gambian 36.0 mL/min Abnormal >60 [facility] Work Phone: [phone] Comment on above: KDIGO guidelines pro vide [...] 5.7 g/dL Low 6.3 - 8.2 g/dL [facility] Work Phone: [phone] GFR/1.73 sq M.predicted among blacks MDRD (S/P/Bld) [Vol rate/Area] 41.7 mL/min/{1.73_m2} Abnormal >60 [facility] Work Phone: [phone] Glucose [Mass/Vol] 255 mg/dL High 70 - 100 mg/dL [facility] Work Phone: [phone] Interpretation and review of laboratory results Abnormal [facility] Work Phone: [phone] Potassium [Moles/Vol] 4.5 mmol/L 3.5 - 5.1 mmol/L [facility] Work Phone: Sodium [Moles/Vol] 136 mmol/L 135 - 145 mmol/L [facility] Work Phone: Urea nitrogen (BldV) [Mass/Vol] 33 mg/dL High 9 - 20 mg/dL [facility] Work Phone: Test Performed by [facility], [address] [place], [place] [id number] [place] [address] LAB [facility] Work Phone: Culture, Urineon 05-03-2022 Bacteria identified Cx Nom (U) Normal urogenital krys present. Abnormal [facility] Bacteria identified Cx Nom (U) Escherichia coli Abnormal [facility] Bacteria identified Cx Nom (U) >100,000 CFU/ml [facility] Interpretation and review of laboratory results Abnormal [facility] Test Performed by [facility], [address] [place] [id number] [place] [address] LAB [facility] Glucose,Bedsideon 05-03-2022 Glucose [Mass/Vol] 332 mg/dL High 70-100 [facility] Comment on above: Result Comment: Test performed by glucose meter. Results may be 10%-15% lower than serum/plasma values. (CLIA ID [id number]) Performed By: #### C MP3M, HEMDF, MDIFF #### [address] [place] [address] #### PCAL #### [address] [address] Glucose [Mass/Vol] 273 mg/dL High 70-100 [facility] Comment on above: Result Comment: Test performed by glucose meter. Results may be 10%-15% lower than serum/plasma values. (CLIA ID [id number]) Performed By: #### L ACTS #### [facility] [address] [place] [address] Glucose [Mass/Vol] 256 mg/dL High 70-100 [facility] Comment on above: Result Comment: Test performed by glucose meter. Results may be 10%-15% lower than serum/plasma values. (CLIA ID [id number]) Performed By: #### C TIBURCIO, HEMELLEN, MDIFF #### [facility] [employer] [facility] [address] [place] [address] #### PCAL #### [facility] [employer] [facility] [address] [facility] [address] Hemogram w/ Autodiffon 05-03 Erythrocyte distribution width (RBC) [Ratio] 13.8 % Normal 11.5-14.5 [facility] Comment on above: Performed By: #### L ACTS #### [facility] [address] [place] [address] Hematocrit (Bld) [Volume fraction] 25.6 % Low 35.0-47.0 [facility] Work Phone: [phone] Comment on above: Performed By: #### L ACTS #### [facility] [employer] [facility] [address] [place] [address] Hemoglobin (Bld) [Mass/Vol] 8.5 g/dL Low 11.7-16.0 [facility] Work Phone: [phone] Comment on above: Performed By: #### L ACTS #### [facility] [employer] [facility] [address] [place] [address] MCH (RBC) [Entitic mass] 29.7 pg Normal 26.0-34.0 [facility] Work Phone: [phone] Comment on above: Performed By: #### L ACTS #### [facility] [employer] [facility] [address] [place] [address] MCHC 33.2 % Normal 32.0-36.0 [facility] Comment on above: Performed By: #### L ACTS #### [facility] [address] [place] [address] MCV (RBC) [Entitic vol] 89.5 fL Normal 79.0-98.0 [facility] Work Phone: [phone] Comment on above: Performed By: #### L ACTS #### [employer] [facility] [address] [place] [address] Platelet mean volume (Bld) [Entitic vol] 7.1 fL Low 7.4-12.4 [facility] Work Phone: Comment on above: MPV is a calculated measurement using platelet volume ratio. Result Comment: MPV is a calculated measurement using platelet volume ratio. Performed By: #### L ACTS #### [facility] [address] [place] [address] Platelets (Bld) [#/Vol] 80 10*3/uL Low 140-440 [facility] Work Phone: Comment on above: Performed By: #### L ACTS #### [place] [address] [place] [address] RBC (Bld) [#/Vol] 2.86 10*6/uL Low 3.80-5.20 [facility] Work Phone: Comment on above: Performed By: #### L ACTS #### [place] [address] [place] [address] WBC (Bld) [#/Vol] 6.3 10*3/uL Normal 3.6-10.7 [facility] Work Phone: Comment on above: Performed By: #### L ACTS #### [place] [address] [place] [address] Manual Diffon 05-03-2022 Abs Eosin Cnt 0.3 10*3/uL Normal 0.0-0.5 [facility] Comment on above: Performed By: #### L ACTS #### [place] [address] [place] [address] Abs Lymph Cnt 0.8 10*3/uL Low 1.1-4.5 [facility] Comment on above: Performed By: #### L ACTS #### [place] [address] [place] [address] Abs Monocyte Cnt 0.3 10*3/uL Normal 0.2-1.1 [facility] Comment on above: Performed By: #### L ACTS #### [facility] [address] [place] [address] Abs Neutrophile Cnt 4.7 10*3/uL Normal 2.2-8.2 [facility] Comment on above: Performed By: #### L ACTS #### [place] [address] [place] [address] [facility] Comment on above: Performed By: #### L ACTS #### [facility] [address] [place] [address] Eosinophils 5 % Normal 1-6 [facility] Comment on above: Performed By: #### L ACTS #### [facility] [address] [place] [address] Lymphocytes 13 % Low 20-40 [facility] Comment on above: Performed By: #### L ACTS #### [facility] [address] [place] [address] Metamyelocytes 1 % Abnormal <1 [facility] Comment on above: Performed By: #### L ACTS #### [facility] [address] [place] [address] Monocytes 5 % Normal 2-10 [facility] Comment on above: Performed By: #### L ACTS #### [facility] [address] [place] [address] Myelocytes 1 % Abnormal <1 [facility] Comment on above: Performed By: #### L ACTS #### [facility] [address] [place] [address] [facility] Comment on above: Performed By: #### L ACTS #### [facility] [address] [place] [address] Poikilocytosis Slight Normal [facility] Comment on above: Performed By: #### L ACTS #### [facility] [address] [place] [address] Polychromasia Slight Normal [facility] Comment on above: Performed By: #### L ACTS #### [facility] [address] [place] [address] RBC Morphology ABNORMAL Normal [facility] Comment on above: Performed By: #### L ACTS #### [facility] [address] [place] [address] Seg Neutrophils 75 % Normal 40-80 [facility] Comment on above: Performed By: #### L ACTS #### [facility] [address] [place] [address] Abs Baso Cnt 0.0 10*3/uL Normal 0.0-0.2 [facility] Comment on above: Performed By: #### L ACTS #### [employer] [facility] [facility] [address] [place] [address] Bands 0 % Normal 0-3 [facility] Comment on above: Performed By: #### L ACTS #### [employer] [facility] [address] [place] [address] Basophils 0 % Normal 0-2 [facility] Comment on above: Performed By: #### L ACTS #### [employer] [facility] [address] [place] [address] Cells counted 100 Normal [facility] [employer] [facility] Comment on above: Performed By: #### L ACTS #### [employer] [facility] [address] [place] [address] Manual Differentialon 2021 Absolute Baso # 0.0 10*3/uL 0.0 - 0.2 10*3/uL [facility] Work Phone: [phone] Absolute Eos # 0.3 10*3/uL 0.0 - 0.5 10*3/uL [facility] Work Phone: [phone] Absolute Lymph # 0.8 10*3/uL Low 1.1 - 4.5 10*3/uL [facility] Work Phone: [phone] Absolute [place] # 0.3 10*3/uL 0.2 - 1.1 10*3/uL [facility] Work Phone: [phone] Absolute Neut # 4.7 10*3/uL 2.2 - 8.2 10*3/uL [facility] Work Phone: [phone] Anisocytosis Slight [facility] Work Phone: [phone] [...] 20 - 40 % [facility] Work Phone: [phone] Metamyelocytes 1 % Abnormal <1 [facility] Work Phone: [phone] Monocytes/100 WBC (Bld) 5 % 2 - 10 % [facility] Work Phone: [phone] Myelocytes 1 % Abnormal <1 [facility] Work Phone: [phone] Ovalocytes Slight [facility] Work Phone: [phone] Poikilocytes Slight [facility] Work Phone: [phone] Polychromasia Slight [facility] Work Phone: [phone] RBC (Bld) [#/Vol] ABNORMAL [facility] Work Phone: [phone] Seg Neutrophils 75 % 40 - 80 % [facility] Work Phone: [phone] TOTAL CELLS COUNTED 100 [facility] Work Phone: [phone] Test Performed by [facility], [address] LAB [facility] Work Phone: [phone] Panel Informationon 05-03 Interpretation and review of laboratory results Abnormal [facility] Work Phone: [phone] Test Performed by [facility], [address] LAB [facility] Work Phone: [phone] POCT Glucoseon 05-03-2022 Glucose [Mass/Vol] 332 mg/dL High 70 - 100 mg/dL [facility] Work Phone: [phone] Comment on above: Test performed by gl ucose meter. Results may be 10%-15% lower than serum/plasma values. (CLIA ID [id number]) Test Performed by [facility], [address] LAB Glucose [Mass/Vol] 256 mg/dL High 70 - 100 mg/dL [facility] Work Phone: [phone] Comment on above: Test performed by gl ucose meter. Results may be 10%-15% lower than serum/plasma values. (CLIA ID [id number]) Interpretation and review of laboratory results Abnormal [facility] Work Phone: [phone] Performed by [facility], [address] [place], [place] [address] [place] [address] LAB [facility] Work Phone: [phone] POCT GlucoseOrdered By: Nelson Beckham on 05-03-2022 Glucose [Mass/Vol] 273 mg/dL High 70 - 100 mg/dL [facility] Work Phone: Comment on above: Test performed by gl ucose meter. Results may be 10%-15% lower than serum/plasma values. (CLIA ID [id number]) Interpretation and review of laboratory results Abnormal [facility] Work Phone: [phone] [facility] Work Phone: [phone] Procalcitoninon 05-03-2022 Procalcitonin 12.30 ng/mL High 0.00-0.09 [facility] Comment on above: Performed By: #### L ACTS #### [facility] [employer] [facility] [address] [place] [address] Interpretation See Below Normal [facility] Work Phone: [phone] Comment on above: PCT <0.50 = Low risk of severe sepsis and/or septic shock. PCT >2.00 = High risk of severe sepsis and/or septic shock. Result Comment: PCT <0.50 = Low risk of severe sepsis and/or septic shock. PCT >2.00 = High risk of severe sepsis and/or septic shock. Performed By: #### L ACTS #### [facility] [employer] [facility] [address] [place] [address] Interpretation and review of laboratory results Abnormal [facility] Work Phone: [phone] Procalcitonin 12.3 ng/mL High 0.00 - 0.09 ng/mL [facility] Work Phone: [phone] Test Performed by [facility], [address] [place], [place] [id number] [place] [address] LAB [facility] Work Phone: [phone] Vancomycin Troughon 05-03-20 Vancomycin Trough 9.9 ug/mL Low 15.0-20.0 [facility] Comment on above: Result Comment: . Performed By: #### C MP3M, HEMDF, MDIFF #### [facility] [employer] [address] [place] [address] #### PCAL #### [employer] [address] [place] [address] CBC with Auto Differentialon 05-02-2022 Hematocrit (Bld) [Volume fraction] 26.8 % Low 35.0 - 47.0 % [employer] Phone: [phone] Hemoglobin (Bld) [Mass/Vol] 8.9 g/dL Low 11.7 - 16.0 g/dL [facility] Work Phone: [phone] Interpretation and review of laboratory results Abnormal [facility] Work Phone: MCH (RBC) [Entitic mass] 29.8 pg 26.0 - 34.0 pg [facility] Work Phone: MCHC (RBC) [Mass/Vol] 33.1 % 32.0 - 36.0 % [employer] Phone: MCV (RBC) [Entitic vol] 90.0 fL 79.0 - 98.0 fL [facility] Work Phone: Platelet distribution width (Bld) [Ratio] 13.9 % 11.5 - 14.5 % [employer] Phone: Platelet mean volume (Bld) [Entitic vol] 7.4 fL 7.4 - 12.4 fL [employer] Phone: Comment on above: MPV is a calculated measurement using platelet volume ratio. Platelets (Bld) [#/Vol] 71 10*3/uL Low 140 - 440 10*3/uL [facility] Work Phone: RBC (Bld) [#/Vol] 2.97 10*6/uL Low 3.80 - 5.2 0 10*6/uL [facility] Work Phone: WBC (Bld) [#/Vol] 7.5 10*3/uL 3.6 - 10.7 10*3/uL [employer] Phone: Test Performed by [facility] [employer], [address], [place], [place] [address] [facility] Work Phone: Comp Panel with Mg Reflexon 05-02-2022 ALP [Catalytic activity/Vol] 70 U/L Normal 38-126 [facility] Comment on above: Performed By: #### L ACTS #### [facility] [address] [place] [address] ALT [Catalytic activity/Vol] 11 U/L Normal 0-34 [facility] Comment on above: Result Comment: The ALT test is performed by an updated assay method. Please note that the reference intervals have been changed and are now sex specific. Performed By: #### L ACTS #### [facility] [address] [place] [address] Calcium [Mass/Vol] 7.9 mg/dL Low 8.4-10.4 [facility] Comment on above: Performed By: #### L ACTS #### [facility] [address] [place] [address] Glucose [Mass/Vol] 233 mg/dL High 70-100 [facility] Comment on above: Performed By: #### L ACTS #### [facility] [address] [place] [address] Protein [Mass/Vol] 5.8 g/dL Low 6.3-8.2 [facility] Comment on above: Performed By: #### L ACTS #### [facility] [address] [place] [address] Urea nitrogen [Mass/Vol] 43 mg/dL High 9-20 [facility] Comment on above: Performed By: #### L ACTS #### [facility] [address] [place] [address] Anion gap [Moles/Vol] 4 mmol/L Normal 3-13 [facility] Comment on above: Performed By: #### L ACTS #### [facility] [address] [place] [address] AST [Catalytic activity/Vol] 16 U/L Normal 15-46 [facility] Comment on above: Performed By: #### L ACTS #### [facility] [address] [place] [address] Bilirubin [Mass/Vol] 0.4 mg/dL Normal 0.2-1.3 [facility] Comment on above: Performed By: #### L ACTS #### [facility] [address] [place] [address] CO2 [Moles/Vol] 30 mmol/L Normal 22-30 [facility] Comment on above: Performed By: #### L ACTS #### [facility] [address] [place] [address] Creatinine [Mass/Vol] 1.39 mg/dL High 0.52-1.25 [facility] Comment on above: Performed By: #### L ACTS #### [facility] [address] [place] [address] GFR/1.73 sq M.predicted among blacks MDRD (S/P/Bld) [Vol rate/Area] 46.1 mL/min/{1.73_m2} Abnormal >60 [facility] Comment on above: Performed By: #### L ACTS #### [facility] [address] [place] [address] GFR/1.73 sq M.predicted among non-blacks MDRD (S/P/Bld) [Vol rate/Area] 39.8 mL/min/{1.73_m2} Abnormal >60 [facility] Comment on above: Result Comment: [...] secretion. Performed By: #### L ACTS #### [facility] [address] [place] [address] Chloride [Moles/Vol] 104 mmol/L Normal 98-107 [facility] Comment on above: Performed By: #### L ACTS #### [facility] [address] [place] [address] Potassium [Moles/Vol] 4.3 mmol/L Normal 3.5-5.1 [facility] Comment on above: Performed By: #### L ACTS #### [facility] [address] [place] [address] Sodium [Moles/Vol] 138 mmol/L Normal 135-145 [facility] Comment on above: Performed By: #### L ACTS #### [facility] [address] [place] [address] Albumin [Mass/Vol] 3.2 g/dL Low 3.5-5.0 [facility] Comment on above: Performed By: #### L ACTS #### [facility] [address] [place] [address] Comprehensive Metabolic Pane l w/ Reflex to MGon 05-02-2022 Albumin [Mass/Vol] 3.2 g/dL Low 3.5 - 5.0 g/dL [facility] Work Phone: [phone] ALP (Bld) [Catalytic activity/Vol] 70 U/L 38 - 126 U/L [facility] Work Phone: [phone] ALT [Catalytic activity/Vol] 11 U/L 0 - 34 U/L [facility] Work Phone: [phone] Comment on above: The ALT test is perf ormed by an updated assay method. Please note that the reference intervals have been changed and are now sex specific. Anion gap [Moles/Vol] 4 mmol/L 3 - 13 mmol/L [facility] Work Phone: [phone] AST [Catalytic activity/Vol] 16 U/L 15 - 46 U/L [facility] Work Phone: [phone] Bilirubin [Mass/Vol] 0.4 mg/dL 0.2 - 1 .3 mg/dL [facility] Work Phone: [phone] Calcium [Mass/Vol] 7.9 mg/dL Low 8.4 - 10. 4 mg/dL [facility] Work Phone: [phone] Chloride [Moles/Vol] 104 mmol/L 98 - 10 7 mmol/L [facility] Work Phone: [phone] CO2 [Moles/Vol] 30 mmol/L 22 - 30 mmol/L [facility] Work Phone: [phone] Creatinine [Mass/Vol] 1.39 mg/dL High 0.52 - 1.25 mg/dL [facility] Work Phone: [phone] EGFR IF NonAfrican Gambian 39.8 mL/min Abnormal >60 [facility] Work Phone: [phone] Comment on above: KDIGO guidelines pro vide [...] 5.8 g/dL Low 6.3 - 8.2 g/dL [facility] Work Phone: [phone] GFR/1.73 sq M.predicted among blacks MDRD (S/P/Bld) [Vol rate/Area] 46.1 mL/min/{1.73_m2} Abnormal >60 [facility] Work Phone: [phone] Glucose [Mass/Vol] 233 mg/dL High 70 - 100 mg/dL [facility] Work Phone: [phone] Interpretation and review of laboratory results Abnormal [facility] Work Phone: [phone] Potassium [Moles/Vol] 4.3 mmol/L 3.5 - 5.1 mmol/L [facility] Work Phone: [phone] Sodium [Moles/Vol] 138 mmol/L 135 - 145 mmol/L [facility] Work Phone: Urea nitrogen (BldV) [Mass/Vol] 43 mg/dL High 9 - 20 mg/dL [facility] Work Phone: Test Performed by [facility], [address] [place], [place], [place] [address] [facility] Work Phone: Glucose,Bedsideon 05-02-2022 Glucose [Mass/Vol] 239 mg/dL High 70-100 [facility] Comment on above: Result Comment: Test performed by glucose meter. Results may be 10%-15% lower than serum/plasma values. (CLIA ID [id number]) Performed By: #### B GLU #### [facility] [address] [place] [address] Glucose [Mass/Vol] 126 mg/dL High 70-100 [facility] Comment on above: Result Comment: Test performed by glucose meter. Results may be 10%-15% lower than serum/plasma values. (CLIA ID [id number]) Performed By: #### C DINA3ROMEO Rome MDIFF #### [facility] [address] [place] [address] #### PCAL #### [address] [address] Glucose [Mass/Vol] 268 mg/dL High 70-100 [facility] Comment on above: Result Comment: Test performed by glucose meter. Results may be 10%-15% lower than serum/plasma values. (CLIA ID [id number]) Performed By: #### C MP3ROMEO Rome, MDIFF #### [facility] [employer] [facility] [address] [place] [address] #### PCAL #### [address] [address] Glucose [Mass/Vol] 245 mg/dL High 70-100 [facility] Comment on above: Result Comment: Test performed by glucose meter. Results may be 10%-15% lower than serum/plasma values. (CLIA ID [id number]) Performed By: #### C MP3M HEMELLEN MDIFF #### [facility] [address] [address] [place] [address] #### PCAL #### [facility] [address] [place] [address] Glucose [Mass/Vol] 213 mg/dL High 70-100 [facility] Comment on above: Result Comment: Test performed by glucose meter. Results may be 10%-15% lower than serum/plasma values. (CLIA ID [id number]) Performed By: #### L ACTS #### [facility] [address] [place] [address] Hemogram w/ Autodiffon 05-02 Erythrocyte distribution width (RBC) [Ratio] 13.9 % Normal 11.5-14.5 [facility] Comment on above: Performed By: #### L ACTS #### [facility] [address] [place] [address] Hematocrit (Bld) [Volume fraction] 26.8 % Low 35.0-47.0 [facility] Comment on above: Performed By: #### L ACTS #### [facility] [address] [place] [address] Hemoglobin (Bld) [Mass/Vol] 8.9 g/dL Low 11.7-16.0 [facility] Comment on above: Performed By: #### L ACTS #### [facility] [address] [place] [address] MCH (RBC) [Entitic mass] 29.8 pg Normal 26.0-34.0 [facility] Comment on above: Performed By: #### L ACTS #### [facility] [address] [place] [address] MCHC 33.1 % Normal 32.0-36.0 [facility] Comment on above: Performed By: #### L ACTS #### [facility] [address] [place] [address] MCV (RBC) [Entitic vol] 90.0 fL Normal 79.0-98.0 [facility] Comment on above: Performed By: #### L ACTS #### [facility] [address] [place] [address] Platelet mean volume (Bld) [Entitic vol] 7.4 fL Normal 7.4-12.4 [facility] Comment on above: Result Comment: MPV is a calculated measurement using platelet volume ratio. Performed By: #### L ACTS #### [facility] [address] [place] [address] Platelets (Bld) [#/Vol] 71 10*3/uL Low 140-440 [facility] Comment on above: Performed By: #### L ACTS #### [facility] [address] [place] [address] RBC (Bld) [#/Vol] 2.97 10*6/uL Low 3.80-5.20 [facility] Comment on above: Performed By: #### L ACTS #### [place] [address] [place] [address] WBC (Bld) [#/Vol] 7.5 10*3/uL Normal 3.6-10.7 [facility] Comment on above: Performed By: #### L ACTS #### [facility] [address] [place] [address] Manual Diffon 05-02-2022 Abs Baso Cnt 0.1 10*3/uL Normal 0.0-0.[address] [facility] Comment on above: Performed By: #### L ACTS #### [place] [address] [place] [address] Abs Eosin Cnt 0.4 10*3/uL Normal 0.0-0.5 [facility] Comment on above: Performed By: #### L ACTS #### [facility] [address] [place] [address] Abs Lymph Cnt 0.9 10*3/uL Low 1.1-4.5 [facility] Comment on above: Performed By: #### L ACTS #### [place] [address] [place] [address] Abs Monocyte Cnt 0.3 10*3/uL Normal 0.2-1.1 [facility] Comment on above: Performed By: #### L ACTS #### [facility] [address] [place] [address] Abs Neutrophile Cnt 5.8 10*3/uL Normal 2.2-8.2 [facility] Comment on above: Performed By: #### L ACTS #### [facility] [address] [place] [address] Anisocytosis Slight Normal [facility] Comment on above: Performed By: #### L ACTS #### [facility] [address] [place] [address] Bands 0 % Normal 0-3 [facility] Comment on above: Performed By: #### L ACTS #### [facility] [address] [place] [address] Basophillic Stippling Slight Normal [facility] Comment on above: Performed By: #### L ACTS #### [facility] [address] [place] [address] Basophils 1 % Normal 0-2 [facility] Comment on above: Performed By: #### L ACTS #### [facility] [address] [place] [address] Cells counted [address] [facility] Comment on above: Performed By: #### L ACTS #### [facility] [address] [place] [address] Eosinophils 5 % Normal 1-6 [facility] Comment on above: Performed By: #### L ACTS #### [facility] [address] [place] [address] Hypochromia Slight Normal [facility] Comment on above: Performed By: #### L ACTS #### [facility] [address] [place] [address] Lymphocytes 12 % Low 20-40 [facility] Comment on above: Performed By: #### L ACTS #### [facility] [address] [place] [address] Metamyelocytes 1 % Abnormal <1 [facility] Comment on above: Performed By: #### L ACTS #### [facility] [address] [place] [address] Monocytes 4 % Normal 2-10 [facility] Comment on above: Performed By: #### L ACTS #### [facility] [address] [place] [address] Ovalocytes Slight Normal [facility] Comment on above: Performed By: #### L ACTS #### [facility] [address] [place] [address] Poikilocytosis Slight Normal [facility] Comment on above: Performed By: #### L ACTS #### [facility] [address] [place] [address] Polychromasia Slight Normal [facility] Comment on above: Performed By: #### L ACTS #### [facility] [address] [place] [address] RBC Morphology ABNORMAL Normal [facility] Comment on above: Performed By: #### L ACTS #### [facility] [address] [place] [address] Seg Neutrophils 77 % Normal 40-80 [facility] Comment on above: Performed By: #### L ACTS #### [facility] [address] [place] [address] Tear Drop Forms Slight Normal [facility] Comment on above: Performed By: #### L ACTS #### [facility] [address] [place] [address] Manual Differentialon 2021 Absolute Baso # 0.1 10*3/uL 0.0 - 0.2 10*3/uL [facility] Work Phone: [phone] Absolute Eos # 0.4 10*3/uL 0.0 - 0.5 10*3/uL [facility] Work Phone: [phone] Absolute Lymph # 0.9 10*3/uL Low 1.1 - 4.5 10*3/uL [facility] Work Phone: [phone] Absolute [place] # 0.3 10*3/uL 0.2 - 1.1 10*3/uL [facility] Work Phone: 22 Absolute Neut # 5.8 10*3/uL 2.2 - 8.2 10*3/uL [facility] Work Phone: [phone] Anisocytosis Slight [facility] Work Phone: 22 Bands 0 % 0 - 3 % [facility] Work Phone: 22 Basophilic Stippling Slight [facility] Work Phone: 22 Basophils/100 WBC (Bld) 1 % 0 - 2 % [facility] Work Phone: [phone] Eosinophils/100 WBC (Bld) 5 % 1 - 6 % [facility] Work Phone: [phone] Hypochromia Slight [facility] Work Phone: [phone] Interpretation and review of laboratory results Abnormal [facility] Work Phone: [phone] Lymphocytes/100 WBC (Bld) 12 % Low 20 - 40 % [facility] Work Phone: [phone] Metamyelocytes 1 % Abnormal <1 [facility] Work Phone: [phone] Monocytes/100 WBC (Bld) 4 % 2 - 10 % [facility] Work Phone: [phone] Ovalocytes Slight [facility] Work Phone: [phone] Poikilocytes Slight [facility] Work Phone: [phone] Polychromasia Slight [facility] Work Phone: [phone] RBC (Bld) [#/Vol] ABNORMAL [facility] Work Phone: [phone] Seg Neutrophils 77 % 40 - 80 % [facility] Work Phone: [phone] Tear Drop Cells Slight [facility] Work Phone: [phone] TOTAL CELLS COUNTED 100 [facility] Work Phone: [phone] Test Performed by [facility], [facility] [address] LAB [facility] Work Phone: [phone] POCT Glucoseon 05-02-2022 Glucose [Mass/Vol] 239 mg/dL High 70 - 100 mg/dL [facility] Work Phone: [phone] Comment on above: Test performed by gl ucose meter. Results may be 10%-15% lower than serum/plasma values. (CLIA ID [id number]) Interpretation and review of laboratory results Abnormal [facility] Work Phone: [phone] Test Performed by [facility], [facility] [address] LAB [facility] Work Phone: Glucose [Mass/Vol] 126 mg/dL High 70 - 100 mg/dL [facility] Work Phone: Comment on above: Test performed by gl ucose meter. Results may be 10%-15% lower than serum/plasma values. (CLIA ID [id number]) Interpretation and review of laboratory results Abnormal [facility] Work Phone: [phone] Test Performed by [facility], [address] LAB [facility] Work Phone: [phone] Glucose [Mass/Vol] 268 mg/dL High 70 - 100 mg/dL [facility] Work Phone: [phone] Comment on above: Test performed by gl ucose meter. Results may be 10%-15% lower than serum/plasma values. (CLIA ID [id number]) Interpretation and review of laboratory results Abnormal [facility] Work Phone: [phone] Test Performed by [facility], [address] LAB [facility] Work Phone: [phone] Test Performed by [facility], [address] LAB Glucose [Mass/Vol] 213 mg/dL High 70 - 100 mg/dL [facility] Work Phone: [phone] Comment on above: Test performed by gl ucose meter. Results may be 10%-15% lower than serum/plasma values. (CLIA ID [id number]) Interpretation and review of laboratory results Abnormal [facility] Work Phone: [phone] Test Performed by [facility], [address] LAB [facility] Work Phone: [phone] POCT GlucoseOrdered By: Angie Love on 05-02-2022 Glucose [Mass/Vol] 245 mg/dL High 70 - 100 mg/dL [facility] Work Phone: Comment on above: Test performed by gl ucose meter. Results may be 10%-15% lower than serum/plasma values. (CLIA ID [id number]) Interpretation and review of laboratory results Abnormal [facility] Work Phone: [facility] Work Phone: Procalcitoninon 05-02-2022 Interpretation See Below Normal [facility] Comment on above: Result Comment: PCT <0.50 = Low risk of severe sepsis and/or septic shock. PCT >2.00 = High risk of severe sepsis and/or septic shock. Performed By: #### L ACTS #### [facility] [address] [place] [address] US RETROPERITONEAL COMPLETEo n 05-02-2022 Patient Name: KIMBERLY PATEL Ultrasound ACCESSION EXAM DATE/TIME PROCEDURE ORDERING PROVIDER [id number] 05/02/2022 10:21 EDT US Retroperitoneal [id number] -HEMA GIRON Denise CPT code 42752 Reason For Exam (US Retroperitoneal Complete) darrell [...] JASON Transcribed Date and Time: 05/02/2022 12:35 MARLY [facility] Edwin David MD - 05/02/2022 Patient Name: KIMBERLY PATEL Ultrasound ACCESSION EXAM DATE/TIME PROCEDURE ORDERING PROVIDER [id number] 05/02/2022 10:21 EDT US Retroperitoneal HEMA CHAPMAN CPT code 75970 Reason For Exam (US Retroperitoneal Complete) darrell [...] JASON Transcribed Date and Time: 05/02/2022 12:35 [facility] Work Phone: US RETROPERITONEAL COMPLETEO rdered By: Edwin Vaz on 05-02-2022 [facility] Work Phone: US Retroperitoneal Completeo n 05-02-2022 US Retroperitoneal Complete Patient Name: KIMBERLY PATEL Ultrasound ACCESSION EXAM DATE/TIME PROCEDURE ORDERING PROVIDER [id number] 05/02/2022 10:21 EDT US Retroperitoneal EHMA CHAPMAN CPT code 46947 Reason For Exam (US Retroperitoneal Complete) darrell [...] Transcribed Date and Time: 05/02/2022 12:35 Normal [facility] Vancomycin Level, Troughon 0 05-02-2022 Interpretation and review of laboratory results Abnormal [facility] Vancomycin Tr 9.9 ug/mL Low 15.0 - 20.0 ug/mL [facility] Comment on above: . Test Performed by [facility], [address] [place], [place] [id number] [place] [address] LAB [facility] CBC with Auto Differentialon 05-01-2022 Absolute Baso # 0.0 10*3/uL 0.0 - 0.2 10*3/uL [facility] Work Phone: Absolute Neut # 12.3 10*3/uL High 1.8 - 7.0 10*3/uL [facility] Work Phone: [phone] Basophils/100 WBC (Bld) 0.1 % 0.0 - 2.0 % [facility] Work Phone: [phone] Eosinophils (Bld) [#/Vol] 0.0 10*3/uL 0.0 - 0.5 10*3/uL [facility] Work Phone: Eosinophils/100 WBC (Bld) 0.2 % Low 1.0 - 6.0 % [facility] Work Phone: [phone] Granulocytes/100 WBC (Bld) 89.5 % High 40.0 - 80.0 % [facility] Work Phone: Hematocrit (Bld) [Volume fraction] 27.7 % Low 35.0 - 47.0 % [facility] Work Phone: [phone] Hemoglobin (Bld) [Mass/Vol] 9.0 g/dL Low 11.7 - 16.0 g/dL [facility] Work Phone: [phone] Interpretation and review of laboratory results Abnormal [facility] Work Phone: [phone] Lymphocytes (Bld) [#/Vol] 0.8 10*3/uL Low 1.0 - 4.3 10*3/uL [facility] Work Phone: 1 Lymphocytes/100 WBC (Bld) 5.5 % Low 20.0 - 40.0 % [facility] Work Phone: MCH (RBC) [Entitic mass] 29.3 pg 26.0 - 34.0 pg [facility] Work Phone: MCHC (RBC) [Mass/Vol] 32.4 % 32.0 - 36.0 % [facility] Work Phone: MCV (RBC) [Entitic vol] 90.5 fL 79.0 - 98.0 fL [facility] Work Phone: Monocytes (Bld) [#/Vol] 0.6 10*3/uL 0.0 - 0.8 10*3/uL [facility] Work Phone: [phone] Monocytes/100 WBC (Bld) 4.7 % 2.0 - 10.0 % [facility] Phone: Platelet distribution width (Bld) [Ratio] 13.6 % 11.5 - 14.5 % [facility] Phone: Platelet mean volume (Bld) [Entitic vol] 7.0 fL Low 7.4 - 12.4 fL [facility] Work Phone: [phone] Comment on above: MPV is a calculated measurement using platelet volume ratio. Platelets (Bld) [#/Vol] 100 10*3/uL Low 140 - 440 10*3/uL [facility] Work Phone: RBC (Bld) [#/Vol] 3.06 10*6/uL Low 3.80 - 5.2 0 10*6/uL [facility] Work Phone: WBC (Bld) [#/Vol] 13.7 10*3/uL High 3.6 - 10.7 10*3/uL [facility] Work Phone: Test Performed by [facility], [address] [place] [address] [facility] LAB [facility] Work Phone: Comp Panel with Mg Reflexon 05-01-2022 Anion gap [Moles/Vol] 6 mmol/L Normal 3-13 [facility] Comment on above: Performed By: #### ROMEO LOPEZ MDIFF #### [place] [address] [place] [address] #### PCAL #### [place] [address] [place] [address] ALT [Catalytic activity/Vol] 14 U/L Normal 0-34 [facility] Comment on above: Result Comment: The ALT test is performed by an updated assay method. Please note that the reference intervals have been changed and are now sex specific. Performed By: #### ROMEO LOPEZ MDIFF #### [place] [address] [place] [address] #### PCAL #### [place] [address] [place] [address] Calcium [Mass/Vol] 7.8 mg/dL Low 8.4-10.4 [facility] Comment on above: Performed By: #### ROMEO LOPEZ MDIFF #### [place] [address] [place] [address] #### PCAL #### [place] [address] [place] [address] Glucose [Mass/Vol] 282 mg/dL High 70-100 [facility] Comment on above: Performed By: #### ROMEO LOPEZ MDIFF #### [place] [address] [place] [address] #### PCAL #### [place] [address] [facility] [place] [address] Urea nitrogen [Mass/Vol] 44 mg/dL High 9-20 [facility] Comment on above: Performed By: #### ROMEO LOPEZ MDIFF #### [facility] [address] [place] [address] #### PCAL #### [place] [address] [facility] [place] [address] ALP [Catalytic activity/Vol] 73 U/L Normal 38-126 [facility] Comment on above: Performed By: #### ROMEO LOPEZ MDIFF #### [place] [address] [place] [address] #### PCAL #### [place] [address] [address] [facility], [place] AST [Catalytic activity/Vol] 19 U/L Normal 15-46 [facility] Comment on above: Performed By: #### ROMEO LOPEZ MDIFF #### [place] [address] [place] [address] #### PCAL #### [place] [address] [address] [facility], [place] Bilirubin [Mass/Vol] 0.5 mg/dL Normal 0.2-1.3 [facility] Comment on above: Performed By: #### ROMEO LOPEZ MDIFF #### [place] [address] [place] [address] #### PCAL #### [place] [address] [address] [facility], [place] CO2 [Moles/Vol] 30 mmol/L Normal 22-30 [facility] Comment on above: Performed By: #### ROMEO LOPEZ MDIFF #### [place] [address] [place] [address] #### PCAL #### [place] [address] [facility] [place] [address] Creatinine [Mass/Vol] 1.77 mg/dL High 0.52-1.25 [facility] Comment on above: Performed By: #### RMOEO LOPEZ MDIFF #### [facility] [address] [place] [address] #### PCAL #### [employer] [address] [address] GFR/1.73 sq M.predicted among blacks MDRD (S/P/Bld) [Vol rate/Area] 34.4 mL/min/{1.73_m2} Abnormal >60 [facility] Comment on above: Performed By: #### ROMEO LOPEZ MDIFF #### [employer] [facility] [address] [place] [address] #### PCAL #### [employer] [address] [place] [address] GFR/1.73 sq M.predicted among non-blacks MDRD (S/P/Bld) [...] Performed By: #### ROMEO LOPEZ MDIFF #### [employer] [facility] [address] [place] [address] #### PCAL #### [employer] [address] [address] Protein [Mass/Vol] 5.6 g/dL Low 6.3-8.2 [facility] Comment on above: Performed By: #### ROMEO LOPEZ MDIFF #### [facility] [address] [place] [address] #### PCAL #### [place] [address] [place] [address] Potassium [Moles/Vol] 4.5 mmol/L Normal 3.5-5.1 [facility] Comment on above: Performed By: #### ROMEO LOPEZ MDIFF #### [facility] [address] [place] [address] #### PCAL #### [place] [address] [place] [address] Sodium [Moles/Vol] 136 mmol/L Normal 135-145 [facility] Comment on above: Performed By: #### ROMEO LOPEZ MDIFF #### [place] [address] [place] [address] #### PCAL #### [place] [address] [place], [place] Albumin [Mass/Vol] 3.2 g/dL Low 3.5-5.0 [facility] Comment on above: Performed By: #### ROMEO LOPEZ MDIFF #### [place] [address] [place] [address] #### PCAL #### [place] [address] [place] [address] Chloride [Moles/Vol] 100 mmol/L Normal 98-107 [facility] Work Phone: Comment on above: Performed By: #### ROMEO LOPEZ MDIFF #### [place] [address] [place] [address] #### PCAL #### [place] [address] [place] [address] Comprehensive Metabolic Pane l w/ Reflex to MGon 05-01-2022 Albumin [Mass/Vol] 3.2 g/dL Low 3.5 - 5.0 g/dL [facility] Work Phone: ALP (Bld) [Catalytic activity/Vol] 73 U/L 38 - 126 U/L [facility] Work Phone: [phone] ALT [Catalytic activity/Vol] 14 U/L 0 - 34 U/L [facility] Work Phone: Comment on above: The ALT test is perf ormed by an updated assay method. Please note that the reference intervals have been changed and are now sex specific. Anion gap [Moles/Vol] 6 mmol/L 3 - 13 mmol/L [facility] Work Phone: [phone] AST [Catalytic activity/Vol] 19 U/L 15 - 46 U/L [facility] Work Phone: [phone] Bilirubin [Mass/Vol] 0.5 mg/dL 0.2 - 1 .3 mg/dL [facility] Work Phone: [phone] Calcium [Mass/Vol] 7.8 mg/dL Low 8.4 - 10. 4 mg/dL [facility] Work Phone: [phone] CO2 [Moles/Vol] 30 mmol/L 22 - 30 mmol/L [facility] Work Phone: [phone] Creatinine [Mass/Vol] 1.77 mg/dL High 0.52 - 1.25 mg/dL [facility] Work Phone: [phone] EGFR IF NonAfrican Gambian 29.7 mL/min Abnormal >60 [facility] Work Phone: Comment on above: KDIGO guidelines [...] 5.6 g/dL Low 6.3 - 8.2 g/dL [facility] Work Phone: GFR/1.73 sq M.predicted among blacks MDRD (S/P/Bld) [Vol rate/Area] 34.4 mL/min/{1.73_m2} Abnormal >60 [facility] Work Phone: [phone] Glucose [Mass/Vol] 282 mg/dL High 70 - 100 mg/dL [facility] Work Phone: [phone] Interpretation and review of laboratory results Abnormal [facility] Work Phone: [phone] Potassium [Moles/Vol] 4.5 mmol/L 3.5 - 5.1 mmol/L [facility] Work Phone: [phone] Sodium [Moles/Vol] 136 mmol/L 135 - 145 mmol/L [facility] Work Phone: [phone] Urea nitrogen (BldV) [Mass/Vol] 44 mg/dL High 9 - 20 mg/dL [facility] Work Phone: [phone] Test Performed by [id number] [place] [address] LAB [facility] Work Phone: EKG 12 Lead - Chest Painon 0 05-01-2022 [facility] Test Date: 2022-04-30 Pat Name: KIMBERLY PATEL Department: 01 Room: [facility] Gender: F Negotiator: JAZMINE : 1955 Requested By: GIGI DIEHL Order Number: [id number] Reading MD: Gigi Gao Measurements Intervals Stanley Rate: 103 P: 18 MI: 168 QRS: -49 QRSD: 62 T: 48 QT: 332 QTc: 435 Interpretive Statements SINUS TACHYCARDIA INFERIOR INFARCT, OLD ANTERIOR INFARCT, AGE INDETERMINATE LEFT AXIS DEVIATION When compared to 10/02/2021 there has been no significant change Electronically Signed On 05-01-2022 17:37:49 EDT by Gigi Gao [facility] Gigi Gao MD - 05/01/2022 [facility] Test Date: 2022-04-30 Pat Name: KIMBERLY PATEL Department: 01 Room: 453 Gender: F Negotiator: ZMisti : 1955 Requested By: GIGI DIEHL Order Number: [id number] Reading MD: Gigi Gao Measurements Intervals Stanley Rate: 103 P: 18 MI: 168 QRS: -49 QRSD: 62 T: 48 QT: 332 QTc: 435 Interpretive Statements SINUS TACHYCARDIA INFERIOR INFARCT, OLD ANTERIOR INFARCT, AGE INDETERMINATE LEFT AXIS DEVIATION When compared to 10/02/2021 there has been no significant change Electronically Signed On 05-01-2022 17:37:49 EDT by Gigi Gao [facility] Work Phone: EKG 12 Lead - Chest PainOrde red By: Gigi Gao on 05-01-2022 [employer] [facility] Work Phone: Glucose,Bedsideon 05-01-2022 Glucose [Mass/Vol] 288 mg/dL [facility] [address] Comment on above: Result Comment: Test performed by glucose meter. Results may be 10%-15% lower than serum/plasma values. (CLIA ID [id number]) Performed By: #### L ACTS #### [employer] [address] [place] [address] Glucose [Mass/Vol] 143 mg/dL High [address] Comment on above: Result Comment: Test performed by glucose meter. Results may be 10%-15% lower than serum/plasma values. (CLIA ID [id number]) Performed By: #### L ACTS #### [employer] [address] [place] [address] Glucose [Mass/Vol] 256 mg/dL High [address] Comment on above: Result Comment: Test performed by glucose meter. Results may be 10%-15% lower than serum/plasma values. (CLIA ID [id number]) Performed By: #### C [employer]Wild, HEMMD ELLENIFF #### [employer] [address] [place] [address] #### PCAL #### [employer] [address] [place] [address] Glucose [Mass/Vol] 235 mg/dL High 70-100 [facility] Comment on above: Result Comment: Test performed by glucose meter. Results may be 10%-15% lower than serum/plasma values. (CLIA ID [id number]) Performed By: #### C [employer], HEMDF, MDIFF #### [facility] [address] [place] [address] #### PCAL #### [facility] [address] [facility] [place] [address] Hemogram w/ Autodiffon 05-01 Abs Baso Cnt 0.0 10*3/uL Normal 0.0-0.2 [facility] Comment on above: Performed By: #### L ACTS #### [facility] [address] [place] [address] Abs Neutrophile Cnt 12.3 10*3/uL High 1.8-7.0 [facility] Comment on above: Performed By: #### L ACTS #### [facility] [address] [place] [address] Basophils/100 WBC (Bld) 0.1 % Normal 0.0-2.0 [facility] Comment on above: Performed By: #### L ACTS #### [facility] [address] [place] [address] Eosinophils (Bld) [#/Vol] 0.0 10*3/uL Normal 0.0-0.5 [facility] Comment on above: Performed By: #### L ACTS #### [facility] [address] [place] [address] Eosinophils/100 WBC (Bld) 0.2 % Low 1.0-6.0 [facility] Comment on above: Performed By: #### L ACTS #### [facility] [address] [place] [address] Erythrocyte distribution width (RBC) [Ratio] 13.6 % Normal 11.5-14.5 [facility] Comment on above: Performed By: #### L ACTS #### [facility] [address] [place] [address] Granulocytes/100 WBC (Bld) 89.5 % High 40.0-80.0 [facility] Comment on above: Performed By: #### L ACTS #### [facility] [address] [place] [address] Hematocrit (Bld) [Volume fraction] 27.7 % Low 35.0-47.0 [facility] Comment on above: Performed By: #### L ACTS #### [facility] [address] [place] [address] Hemoglobin (Bld) [Mass/Vol] 9.0 g/dL Low 11.7-16.0 [facility] Comment on above: Performed By: #### L ACTS #### [facility] [address] [place] [address] Lymphocytes (Bld) [#/Vol] 0.8 10*3/uL Low 1.0-4.3 [facility] Comment on above: Performed By: #### L ACTS #### [facility] [address] [place] [address] Lymphocytes/100 WBC (Bld) 5.5 % Low 20.0-40.0 [facility] Comment on above: Performed By: #### L ACTS #### [facility] [address] [place] [address] MCH (RBC) [Entitic mass] 29.3 pg Normal 26.0-34.0 [facility] Comment on above: Performed By: #### L ACTS #### [facility] [address] [place] [address] MCHC 32.4 % Normal 32.0-36.0 [facility] Comment on above: Performed By: #### L ACTS #### [facility] [address] [place] [address] MCV (RBC) [Entitic vol] 90.5 fL Normal 79.0-98.0 [facility] Comment on above: Performed By: #### L ACTS #### [facility] [address] [place] [address] Monocytes (Bld) [#/Vol] 0.6 10*3/uL Normal 0.0-0.8 [facility] Comment on above: Performed By: #### L ACTS #### [facility] [address] [place] [address] Monocytes/100 WBC (Bld) 4.7 % Normal 2.0-10.0 [facility] Comment on above: Performed By: #### L ACTS #### [facility] [address] [place] [address] Platelet mean volume (Bld) [Entitic vol] 7.0 fL Low 7.4-12.4 [facility] Comment on above: Result Comment: MPV is a calculated measurement using platelet volume ratio. Performed By: #### L ACTS #### [facility] [address] [place] [address] Platelets (Bld) [#/Vol] 100 10*3/uL Low 140-440 [facility] Comment on above: Performed By: #### L ACTS #### [facility] [address] [place] [address] RBC (Bld) [#/Vol] 3.06 10*6/uL Low 3.80-5.20 [facility] Comment on above: Performed By: #### L ACTS #### [facility] [address] [place] [address] WBC (Bld) [#/Vol] 13.7 10*3/uL High 3.6-10.7 [facility] Comment on above: Performed By: #### L ACTS #### [facility] [address] [place] [address] Lactate, Sepsison 05-01-2022 Lactate [Moles/Vol] 1.1 mmol/L 0.7 - 2. 0 mmol/L [facility] Work Phone: Test Performed by [facility], [address] [place], [place] [id number] [place] [address] LAB [facility] Work Phone: Lactate [Moles/Vol] 1.7 mmol/L 0.7 - 2. 0 mmol/L [facility] Work Phone: Test Performed by [facility], [address] [place], [place] [id number] [place] [address] LAB [facility] Work Phone: Lactic Acid, Sepsison 2021 Lactate [Moles/Vol] 1.1 mmol/L Normal 0.7-2.0 [facility] Comment on above: Performed By: #### C ROMEO DEY MDIFF #### [facility] [address] [place] [address] #### PCAL #### [facility] [address] [place] [address] Lactate [Moles/Vol] 1.7 mmol/L Normal 0.7-2.0 [facility] Comment on above: Performed By: #### C ROMEO DEY MDIFF #### [facility] [address] [place] [address] #### PCAL #### [facility] [address] [place] [address] POCT GlucoseOrdered By: Deo Lopez on 05-01-2022 Glucose [Mass/Vol] 288 mg/dL High 70 - 100 mg/dL [facility] Comment on above: Test performed by gl ucose meter. Results may be 10%-15% lower than serum/plasma values. (CLIA ID [id number]) Interpretation and review of laboratory results Abnormal [facility] POCT Glucoseon 05-01-2022 Test Performed by [facility], [address] LAB Glucose [Mass/Vol] 143 mg/dL High 70 - 100 mg/dL [facility] Work Phone: Comment on above: Test performed by gl ucose meter. Results may be 10%-15% lower than serum/plasma values. (CLIA ID [id number]) Interpretation and review of laboratory results Abnormal [facility] Work Phone: Test Performed by [facility], [address] LAB [facility] Work Phone: Test Performed by [facility], [address] LAB Glucose [Mass/Vol] 235 mg/dL High 70 - 100 mg/dL [facility] Work Phone: Comment on above: Test performed by gl ucose meter. Results may be 10%-15% lower than serum/plasma values. (CLIA ID [id number]) Interpretation and review of laboratory results Abnormal [facility] Work Phone: [phone] Test Performed by [facility], [address], [place], [place] [id number] [place] [address] LAB [facility] Work Phone: [phone] POCT GlucoseOrdered By: Adam Linda on 05-01-2022 Glucose [Mass/Vol] 256 mg/dL High 70 - 100 mg/dL [facility] Work Phone: Comment on above: Test performed by gl ucose meter. Results may be 10%-15% lower than serum/plasma values. (CLIA ID [id number]) Interpretation and review of laboratory results Abnormal [facility] Work Phone: [facility] Work Phone: Procalcitoninon 05-01-2022 Procalcitonin 28.15 ng/mL High 0.00-0.09 [facility] Comment on above: Performed By: #### C ROMEO DEY MDIFF #### [facility] [address] [place] [address] #### PCAL #### [address] [address] Interpretation See Below [facility] Work Phone: Comment on above: PCT <0.50 = Low risk of severe sepsis and/or septic shock. PCT >2.00 = High risk of severe sepsis and/or septic shock. Interpretation and review of laboratory results Abnormal [facility] Work Phone: [phone] Procalcitonin 28.15 ng/mL High 0.00 - 0.09 ng/mL [facility] Work Phone: Test Performed by [facility], [address] [place] [id number] [place] [address] LAB [facility] Work Phone: [phone] Procalcitonin 4.88 ng/mL High 0.00-0.[address] [facility] Comment on above: Performed By: #### L ACTS #### [facility] [address] [place] [address] Interpretation See Below [facility] Comment on above: PCT <0.50 = Low risk of severe sepsis and/or septic shock. PCT >2.00 = High risk of severe sepsis and/or septic shock. Interpretation and review of laboratory results Abnormal [facility] Procalcitonin 4.88 ng/mL High 0.00 - 0.09 ng/mL [facility] Test Performed by [facility], [address] [place], [place] [address], [place] [address] [facility] LAB [facility] Sodium, Ur Randomon 05-01-20 22 Sodium [Moles/Vol] 35 mmol/L Normal 30-90 [facility] Comment on above: Performed By: #### L ACTS #### [facility] [address] [place] [address] Sodium, Urine, RandomOrdered By: Aj Giron on 05-01-2022 Sodium (U) [Moles/Vol] 35 mmol/L 30 - 90 mmol/L [facility] Sodium, Urine, Randomon 07-0 Test Performed by [facility], [address] [place] [address] LAB US RETROPERITONEAL COMPLETEo n 05-01-2022 Radiology Study observation (narrative) [facility] Work Phone: Add On Lab Teston 04-30-2022 Add On Accepted [facility] Work Phone: Comment on above: Specimen available & acceptable for analysis. Test Performed by [facility], [address] [place] [address] LAB [facility] Work Phone: Add on test from HISon 04-30 Add on test from HIS Accepted Normal [facility] Comment on above: Result Comment: Spec imen available & acceptable for analysis. Performed By: #### A DDON #### [facility] [address] [place] [address] COVID-19, Flu A/B, and RSV C omboon 04-30-2022 Influenza A by PCR Not detected [facility] A Influenza B by PCR Not detected [facility] A RSV PCR Not Detected. Expected Result: Not Detected _ Method: Real-time, RT-PCR This assay was developed by [employer] and distributed under an Emergency Use Authorization (EUA) granted by the FDA for the qualitative detection of nucleic acids from SARS-CoV-2, Influenza A, Influenza B, and Respiratory Syncytial Virus. Provider and patient fact sheets can be found at https://www.fda.gov/med ia/821911/download and https://www.fda.gov/med ia/835256/download. [facility] SARS-CoV-2 (COVID-19) RNA IGGY+probe Ql (Unsp spec) Not detected [facility] Test Performed by [facility], [address] [place], [place], [place] [address] [facility] LAB [facility] CR Chest Portableon 04-30-20 22 CR Chest Portable Patient Name: KIMBERLY PATEL Diagnostic Radiology ACCESSION EXAM DATE/TIME PROCEDURE ORDERING PROVIDER [id number] 04/30/2022 16:58 EDT CR Chest Portable [id number] -GIGI DIEHL CPT code 05755 Reason For Exam (CR Chest Portable) fever [...] Transcribed Date and Time: 04/30/2022 5:12 Normal [facility] Comp Metabolic Panelon 04-30 ALP [Catalytic activity/Vol] 99 U/L Normal 38-126 [facility] Comment on above: Performed By: #### C MP3M, HEMELLEN, IFF #### [facility] [address] [place] [address] #### PCAL #### [facility] [address] [place] [address] Protein [Mass/Vol] 6.6 g/dL Normal 6.3-8.2 [facility] Comment on above: Performed By: #### ROMEO LOPEZ MDIFF #### [facility] [address] [place] [address] #### PCAL #### [facility] [address] [place] [address] Urea nitrogen [Mass/Vol] 41 mg/dL High 9-20 [facility] Comment on above: Performed By: #### C ROMEO DEY MDIFF #### [facility] [address] [place] [address] #### PCAL #### [address] [address] Creatinine [Mass/Vol] 1.29 mg/dL High 0.52-1.25 [facility] Comment on above: Performed By: #### C ROMEO DEY MDIFF #### [facility] [address] [place] [address] #### PCAL #### [place] [place] [address] GFR/1.73 sq M.predicted among blacks MDRD (S/P/Bld) [Vol rate/Area] 50.4 mL/min/{1.73_m2} Abnormal >60 [facility] Comment on above: Performed By: #### C ROMEO DEY MDIFF #### [facility] [address] [place] [address] #### PCAL #### [address] [place] [address] GFR/1.73 sq M.predicted among non-blacks MDRD (S/P/Bld) [Vol rate/Area] 43.5 mL/min/{1.73_m2} Abnormal >60 [facility] Comment on above: Result Comment: [...] By: #### C ROMEO DEY MDIFF #### [facility] [address] [place] [address] #### PCAL #### [address] [address] Albumin [Mass/Vol] 3.7 g/dL Normal 3.5-5.0 [facility] Comment on above: Performed By: #### ROMEO LOPEZ MDIFF #### [place] [address] [place] [address] #### PCAL #### [address] [address] Chloride [Moles/Vol] 101 mmol/L Normal 98-107 [facility] Comment on above: Performed By: #### ROMEO LOPEZ MDIFF #### [facility] [address] [place] [address] #### PCAL #### [address] [address] Potassium [Moles/Vol] 4.4 mmol/L Normal 3.5-5.1 [facility] Comment on above: Performed By: #### ROMEO LOPEZ MDIFF #### [facility] [address] [place] [address] #### PCAL #### [address] [address] Sodium [Moles/Vol] 135 mmol/L Normal 135-145 [facility] Comment on above: Performed By: #### ROMEO LOPEZ MDIFF #### [place] [address] [place] [address] #### PCAL #### [place] [place], [place] ALT [Catalytic activity/Vol] 16 U/L Normal 0-34 [facility] Comment on above: The ALT test is perf ormed by an updated assay method. Please note that the reference intervals have been changed and are now sex specific. Result Comment: The ALT test is performed by an updated assay method. Please note that the reference intervals have been changed and are now sex specific. Performed By: #### ROMEO LOPEZ MDIFF #### [place] [address] [place] [address] #### PCAL #### [place] [place], [place] Anion gap [Moles/Vol] 4 mmol/L Normal 3-13 [facility] Comment on above: Performed By: #### ROMEO LOPEZ MDIFF #### [address] [place] [address] #### PCAL #### [address] AST [Catalytic activity/Vol] 21 U/L Normal 15-46 [facility] Comment on above: Performed By: #### ROMEO LOPEZ MDIFF #### [place] [address] [place] [address] #### PCAL #### [address] Bilirubin [Mass/Vol] 0.7 mg/dL Normal 0.2-1.3 [facility] Comment on above: Performed By: #### ROMEO LOPEZ MDIFF #### [place] [address] [place] [address] #### PCAL #### [address] Calcium [Mass/Vol] 8.6 mg/dL Normal 8.4-10.4 [facility] Comment on above: Performed By: #### C ROMEO DEY MDIFF #### [facility] [address] [place] [address] #### PCAL #### [facility] [address] [place], [place] CO2 [Moles/Vol] 30 mmol/L Normal 22-30 [facility] Comment on above: Performed By: #### C ROMEO DEY MDIFF #### [facility] [address] [place] [address] #### PCAL #### [place] [place], [place] Glucose [Mass/Vol] 274 mg/dL High 70-100 [facility] Comment on above: Performed By: #### ROMEO LOPEZ MDIFF #### [place] [address] [place] [address] #### PCAL #### [place] [address] [place], [place] Complete Urinalysison 2021 Appearance (U) Turbid Abnormal Clear [facility] Comment on above: Result Comment: . Performed By: #### L ACTS #### [facility] [address] [place] [address] Bacteria Loaded Abnormal Negative [facility] Comment on above: Result Comment: . Performed By: #### L ACTS #### [facility] [address] [place] [address] Bilirubin,Urine Negative Normal Negative [facility] Comment on above: Result Comment: . Performed By: #### L ACTS #### [facility] [address] [place] [address] Color (U) Yellow Normal Lt. Yellow [facility] Comment on above: Result Comment: . Performed By: #### L ACTS #### [facility] [address] [place] [address] Glucose Ql (U) 500 mg/dL Abnormal Normal (<70) [facility] Comment on above: Result Comment: . Performed By: #### L ACTS #### [facility] [address] [place] [address] Ketone,Urine Negative Normal Negative [facility] Comment on above: Result Comment: . Performed By: #### L ACTS #### [facility] [address] [place] [address] Leukocytes,Urine 500 Ha/uL Abnormal Negative [facility] Comment on above: Result Comment: . Performed By: #### L ACTS #### [facility] [address] [place] [address] Mucous Threads Few Normal Negative [facility] Comment on above: Result Comment: . Performed By: #### L ACTS #### [facility] [address] [place] [address] Nitrites,Urine Negative Normal Negative [facility] Comment on above: Result Comment: . Performed By: #### L ACTS #### [facility] [address] [place] [address] Non-Squamous Epithelial 1 /[HPF] Abnormal Negative [facility] Comment on above: Result Comment: . Performed By: #### L ACTS #### [facility] [address] [place] [address] Occult Blood,Urine 0.03 mg/dL Abnormal Negative [facility] Comment on above: Result Comment: . Performed By: #### L ACTS #### [facility] [address] [place] [address] pH,Urine 5.5 Normal 5.0-8.0 [facility] Comment on above: Result Comment: . Performed By: #### L ACTS #### [facility] [address] [place] [address] Protein (U) [Mass/Vol] 20 mg/dL Abnormal Negative [facility] Comment on above: Result Comment: . Performed By: #### L ACTS #### [facility] [address] [place] [address] RBC, Urine 3 - 5 Abnormal 0-2 [facility] Comment on above: Result Comment: . Performed By: #### L ACTS #### [facility] [address] [place] [address] Specific [place],Urine 1.014 Normal 1.005 - 1.030 [facility] Comment on above: Result Comment: . Performed By: #### L ACTS #### [facility] [address] [place] [address] Squamous Epithelial 11 - 25 Abnormal 3-5 [facility] Comment on above: Result Comment: . Performed By: #### L ACTS #### [facility] [address] [place] [address] Urobilinogen,Urine Normal Normal Normal (0-1) [facility] Comment on above: Result Comment: . Performed By: #### L ACTS #### [facility] [address] [place] [address] WBC, Urine 26 - 50 Abnormal 0-5 [facility] Comment on above: Result Comment: . Performed By: #### L ACTS #### [facility] [address] [place] [address] White Blood Cell Clump Moderate Abnormal Negative [facility] Comment on above: Result Comment: . Performed By: #### L ACTS #### [facility] [address] [place] [address] Comprehensive Metabolic Pane wade 04-30-2022 Albumin [Mass/Vol] 3.7 g/dL 3.5 - 5.0 g/dL [facility] ALP (Bld) [Catalytic activity/Vol] 99 U/L 38 - 126 U/L [facility] Chloride [Moles/Vol] 101 mmol/L 98 - 10 7 mmol/L [facility] Creatinine [Mass/Vol] 1.29 mg/dL High 0.52 - 1.25 mg/dL [facility] EGFR IF NonAfrican Gambian 43.5 mL/min Abnormal >60 [facility] Comment on [...] - 20 mg/dL [facility] Test Performed by [facility], [address] [place] [id number] [place] [address] LAB [facility] ED Provider Noteon ED Provider Note Emergency Department Encounter [facility] ED Patient: Kimberly Patel : 1955 Date of Evaluation: 04/30/2022 ED Provider: Gigi Diehl MD Note: I wore an N95 mask and gloves during this encounter. CHIEF COMPLAINT: fatigue HPI: Kimberly Patel is a 66 y.o. 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 Patient reports she [...] HPI SOCIAL HISTORY: Former tobacco use, speaks [place] MEDICATIONS: Nursing notes and EMR reviewed ALLERGIES: [...] data to display MEDICAL DECISION MAKING: Kimberly aPtel is a 66 y.o. female who presents [...] for clarification. Gigi Diehl MD Acute Care [facility] Gigi Diehl MD 04/30/22 2303 Normal [facility] Glucose,Bedsideon 04-30-2022 Glucose [Mass/Vol] 264 mg/dL High 70-100 [facility] Comment on above: Result Comment: Test performed by glucose meter. Results may be 10%-15% lower than serum/plasma values. (CLIA ID [id number]) Performed By: #### C ROMEO DEY MDIFF #### [facility] [employer] [facility] [address] [place] [address] #### PCAL #### [facility] [address] [address] Glucose [Mass/Vol] 284 mg/dL High 70-100 [facility] Comment on above: Result Comment: Test performed by glucose meter. Results may be 10%-15% lower than serum/plasma values. (CLIA ID [id number]) Performed By: #### C ROMEO DEY MDIFF #### [facility] [employer] [facility] [address] [place] [address] #### PCAL #### [facility] [employer] [facility] [address] [place] [address] Hemogramon 04-30-2022 Erythrocyte distribution width (RBC) [Ratio] 13.6 % Normal 11.5-14.5 [facility] Comment on above: Performed By: #### C ROMEO DEY MDIFF #### [facility] [address] [place] [address] #### PCAL #### [facility] [address] [place], [place] Hematocrit (Bld) [Volume fraction] 33.4 % Low 35.0-47.0 [facility] Comment on above: Performed By: #### C ROMEO DEY MDIFF #### [facility] [address] [place] [address] #### PCAL #### [address] [place], [place] Hemoglobin (Bld) [Mass/Vol] 10.7 g/dL Low 11.7-16.0 [facility] Comment on above: Performed By: #### C ROMEO DEY MDIFF #### [facility] [address] [place] [address] #### PCAL #### [place] [address] [place], [place] MCH (RBC) [Entitic mass] 29.2 pg Normal 26.0-34.0 [facility] Comment on above: Performed By: #### C ROMEO DEY MDIFF #### [facility] [address] [place] [address] #### PCAL #### [place] [place], [place] MCHC 32.1 % Normal 32.0-36.0 [facility] Comment on above: Performed By: #### C ROMEO DEY MDIFF #### [facility] [address] [place] [address] #### PCAL #### [address] [address] [place], [place] MCV (RBC) [Entitic vol] 90.9 fL Normal 79.0-98.0 [facility] Comment on above: Performed By: #### C ROMEO DEY MDIFF #### [facility] [address] [place] [address] #### PCAL #### [address] [place], [place] Platelet mean volume (Bld) [Entitic vol] 6.5 fL Low 7.4-12.4 [facility] Comment on above: Result Comment: MPV is a calculated measurement using platelet volume ratio. Performed By: #### C ROMEO DEY MDIFF #### [facility] [address] [place] [address] #### PCAL #### [address] [place], [place] Platelets (Bld) [#/Vol] 212 10*3/uL Normal 140-440 [facility] Comment on above: Performed By: #### C ROMEO DEY MDIFF #### [facility] [address] [place] [address] #### PCAL #### [address] [place], [place] RBC (Bld) [#/Vol] 3.68 10*6/uL Low 3.80-5.20 [facility] Comment on above: Performed By: #### C ROMEO DEY MDIFF #### [facility] [address] [place] [address] #### PCAL #### [address] [place], [place] WBC (Bld) [#/Vol] 10.9 10*3/uL High 3.6-10.7 [facility] Comment on above: Performed By: #### C ROMEO DEY MDIFF #### [place] [address] [place] [address] #### PCAL #### [place] [address] [place], [place] Hemogram (CBC)on 04-30-2022 Hematocrit (Bld) [Volume fraction] 33.4 % Low 35.0 - 47.0 % [facility] Hemoglobin (Bld) [Mass/Vol] 10.7 g/dL Low 11.7 - 16.0 g/dL [facility] Interpretation and review of laboratory results Abnormal [facility] MCH (RBC) [Entitic mass] 29.2 pg 26.0 - 34.0 pg [facility] MCHC (RBC) [Mass/Vol] 32.1 % 32.0 - 36.0 % [facility] MCV (RBC) [Entitic vol] 90.9 fL 79.0 - 98.0 fL [facility] Platelet distribution width (Bld) [Ratio] 13.6 % 11.5 - 14.5 % [facility] Platelet mean volume (Bld) [Entitic vol] 6.5 fL Low 7.4 - 12.4 fL [facility] Comment on above: MPV is a calculated measurement using platelet volume ratio. Platelets (Bld) [#/Vol] 212 10*3/uL 140 - 440 10*3/uL [facility] RBC (Bld) [#/Vol] 3.68 10*6/uL Low 3.80 - 5.2 0 10*6/uL [facility] WBC (Bld) [#/Vol] 10.9 10*3/uL High 3.6 - 10.7 10*3/uL [facility] Test Performed by [facility], [facility] [address] LAB [facility] Lactate, Sepsison 04-30-2022 Interpretation and review of laboratory results Abnormal [facility] Lactate [Moles/Vol] 2.2 mmol/L Critically high 0.7 - 2.0 mmol/L [facility] Test Performed by [facility], [facility] [address] LAB [facility] [facility] Lactic Acid, Sepsison 2021 Lactate [Moles/Vol] 2.2 mmol/L Critically high 0.7-2.0 [facility] Comment on above: Performed By: #### L ACTS #### [place] [address] [place] [address] POCT GlucoseOrdered By: Spring Tatum on 04-30-2022 Glucose [Mass/Vol] 264 mg/dL High 70 - 100 mg/dL [facility] Comment on above: Test performed by gl ucose meter. Results may be 10%-15% lower than serum/plasma values. (CLIA ID [id number]) Interpretation and review of laboratory results Abnormal [facility] POCT Glucoseon 04-30-2022 Test Performed by [facility], [facility] [address] LAB Test Performed by [facility], [address] LAB POCT GlucoseOrdered By: Nataly Zelaya on 04-30-2022 Interpretation and review of laboratory results Normal [facility] QC OK? y [facility] POCT GlucoseOrdered By: Liam Santillan on 04-30-2022 Glucose [Mass/Vol] 284 mg/dL High 70 - 100 mg/dL [facility] Comment on above: Test performed by ucose meter. Results may be 10%-15% lower than serum/plasma values. (CLIA ID [id number]) Interpretation and review of laboratory results Abnormal [facility] Procalcitoninon 04-30-2022 Interpretation See Below Normal [facility] Comment on above: Result Comment: PCT <0.50 = Low risk of severe sepsis and/or septic shock. PCT >2.00 = High risk of severe sepsis and/or septic shock. Performed By: #### L ACTS #### [place] [address] [place] [address] Interpretation See Below Normal [facility] Comment on above: Result Comment: PCT <0.50 = Low risk of severe sepsis and/or septic shock. PCT >2.00 = High risk of severe sepsis and/or septic shock. Performed By: #### C MP3M, HEMDF, MDIFF #### [facility] [address] [place] [address] #### PCAL #### [address] [address] SARS-CoV-2, Flu A/B and RSVo n 04-30-2022 SARS-CoV-2 (COVID-19) RNA IGGY+probe Ql (Unsp spec) SARS-CoV-2 --> Status: F Not Detected. Flu A PCR --> Status: F Not Detected. Flu B PCR --> Status: F Not Detected. RSV PCR --> Status: F Not Detected. Expected Result: Not Detected _ Method: Real-time, RT-PCR This assay was developed by [employer] and distributed under an Emergency Use Authorization (EUA) granted by the FDA for the qualitative detection of nucleic acids from SARS-CoV-2, Influenza A, Influenza B, and Respiratory Syncytial Virus. Provider and patient fact sheets can be found at https://www.fda.gov/med ia/319295/download and https://www.fda.gov/med ia/852448/download. Expected Result: Not Detected _ Method: Real-time, RT-PCR This assay was developed by [employer] and distributed under an Emergency Use Authorization (EUA) granted by the FDA for the qualitative detection of nucleic acids from SARS-CoV-2, Influenza A, Influenza B, and Respiratory Syncytial Virus. Provider and patient fact sheets can be found at https://www.[facility].gov/med ia/556123/download and https://www.fda.gov/med ia/080485/download. Normal [facility] Comment on above: Performed By: #### L ACTS #### [facility] [address] [place] [address] Troponin Ion 04-30-2022 Troponin I.cardiac [Mass/Vol] 0.019 ng/mL Normal 0.000-0.034 [facility] Comment on above: Result Comment: . Performed By: #### L ACTS #### [facility] [address] [place] [address] Troponin x1on 04-30-2022 Troponin I.cardiac [Mass/Vol] 0.019 ng/mL 0.000 - 0.034 ng/mL [facility] Comment on above: . Test Performed by [facility], [address] [place], [place] [address] [facility] Urinalysison 04-30-2022 Appearance (U) [...] Protein (U) [Mass/Vol] 20 mg/dL Abnormal Negative [facility] Comment on above: . RBC, UA 3-5 Abnormal 0 - 2 /[HPF] [facility] Comment on above: . Specific [place], Urine 1.014 S [facility] Comment on above: . Squam Epithel, UA 11-25 Abnormal 3 - 5 /[HPF] [facility] Comment on above: . Urobilinogen, Urine Normal Normal (0-1) mg/dL [facility] Comment on above: . WBC Clumps, Urine Moderate Abnormal Negative /[HPF] [facility] Comment on above: . WBC, UA 26-50 Abnormal 0 - 5 /[HPF] [facility] Comment on above: . Test Performed by [facility], [address] [place], [place] [address] [place] [address] LAB [facility] XR CHEST PORTABLEon 04-30-20 Patient Name: KIMBERLY PATEL Diagnostic Radiology ACCESSION EXAM DATE/TIME PROCEDURE ORDERING PROVIDER [id number] 04/30/2022 16:58 EDT CR Chest Portable [id number] -GIGI DIEHL CPT code 13312 Reason For Exam (CR Chest Portable) fever [...] WENDELL Transcribed Date and Time: 04/30/2022 5:12 [facility] RAD Fransico Barrios MD - 04/30/2022 Patient Name: KIMBERLY PATEL Diagnostic Radiology ACCESSION EXAM DATE/TIME PROCEDURE ORDERING PROVIDER [id number] 04/30/2022 16:58 EDT CR Chest Portable [id number] -GIGI DIEHL CPT code 79268 Reason For Exam (CR Chest Portable) fever [...] WENDELL Transcribed Date and Time: 04/30/2022 5:12 [facility] Work Phone: Radiology Study observation (narrative) [facility] Work Phone: XR CHEST PORTABLEOrdered By: Fransico Barrios on 04-30-2022 [facility] Work Phone: CNPEstrellita 04-25-2022 [facility] Telephone ([facility]) KIMBERLY PATEL ([id number]) 1955 [facility] Date Time Provider Department 04/25/22 FRANKIE DENG [facility] During your visit today, we recorded the following information about you: Jil Kelly 04/25/2022 10:21 AM Signed Patient calling in to speak with Susan Cuello the pharmacist To give her a call. Has questions about her medications Susan Cuello [facility] 04/25/2022 10:44 AM Signed Returned [...] questions or concerns. Thank you, Susan Cuello, Angela Allergies As of Date: 04/25/2022 Noted Allergy Reaction DILAUDID (HYDROMORPHONE (BULK)) 05/30/2012 11 - Vomiting JARDIANCE (EMPAGLIFLOZIN) 11/07/2021 14 - Other: See Comments Comments: UTI METFORMIN 05/30/2012 6 - Diarrhea MORPHINE 05/30/2012 11 - Vomiting ONDANSETRON 02/14/2021 16 - Unknown PENICILLINS 05/30/2012 2 - Rash TRULICITY (DULAGLUTIDE) 11/07/2021 8 - GI Upset Comments: Nausea/Vomiting Date Reviewed: 04/14/2022 Reviewed by: Susan Cuello [facility] - Fully Assessed Reason for Visit: Patient Question [3987] Cmt: Medications Prescriptions as of 04/25/2022 - Insulin Washburn, Disposable, (PEN NEEDLE) 31 gauge x 3/16" Use as directed to inject insulin 5 [...] - Lancing Device (LANCING DEVICE WITH LANCETS) [facility] Use as directed to check blood sugar 3 times daily, insulin: yes, E11.9 - HYDROcodone-Acetaminoph en (NORCO) 7.5-325 mg per tablet Take 1 tablet by mouth once daily as needed for pain. - polyethylene glycol 3350 (MIRALAX, GLYCOLAX) 17 gram packet Take 1 Packet by mouth once daily as needed (constipation). - WALKER ROLLATOR SEAT WITH 6" WHEELS - RED Walker rollator with seat - aspirin, enteric coated (ASPIRIN LOW DOSE) 81 mg EC tablet Take 81 mg by mouth once daily. - ranolazine SR (RANEXA) 1,000 mg tab ER 12 hr Take 1,000 mg by mouth twice daily. Meds Comments as of 07/08/2021: 07/08/21 The medications are managed by this patient by: PATIENT Chiquita Bedolla, [facility] 02/10/21 The medications are managed by this patient by: PATIENT Chiquita Bedolla, Angela 12/03/20 The medications are managed by this patient by: PATIENT Quique Guzmán, Angela Problem List As Of Date 04/25/2022 Noted Resolved Heart disease (organic) [I51.9] 05/31/2012 08/26/2021 DIYA (obstructive sleep apnea) [G47. (more content not included)... Normal [facility] CNPNon 04-14-2022 CNPN Telephone ([facility]) KIMBERLY PATEL ([id number]) 1955 [facility] Date Time Provider Department 04/14/22 SUSAN CUELLO [facility] During your visit today, we recorded the following information about you: Susan Cuello RPh 04/14/2022 1:[address] Deng, I am the clinical pharmacist currently consulted to aid in diabetes management for this mutual patient. I was originally referred by this patient's previous PCP, Dr. Meyer. Since the patient has since transitioned care to you, I have pended an updated consult order to this encounter if you agree to approve. ? Thank you, Susan Cuello, Angela Deng MD 04/14/2022 5:59 PM Signed Happy [...] Date Reviewed: 04/14/2022 Reviewed by: Susan Cuello [facility] - Fully Assessed Reason for Visit: Care Coordination [3491] Primary Visit Diagnosis:Type 2 diabetes mellitus with diabetic polyneuropathy, with long-term current use of insulin ([facility]) [E11.42, Z79.4] Order(s):CONSULT TO PHARMACY [[id number]] Order #: [id number]: 1 Prescriptions as of 04/17/2022 - Insulin Washburn, Disposable, (PEN NEEDLE) 31 gauge x 3/16" Use as directed to inject insulin 5 [...] needed (constipation). - WALKER ROLLATOR SEAT WITH 6" WHEELS - RED Walker rollator with seat - aspirin, enteric coated (ASPIRIN LOW DOSE) 81 mg EC tablet Take 81 mg by mouth once daily. - ranolazine SR (RANEXA) 1,000 mg tab ER 12 hr Take 1,000 mg by mouth twice daily. Meds Comments as of 07/08/2021: 07/08/21 The medications are managed by this patient by: LUIS ALBERTO Bedolla, adelita 02/10/21 The medications are managed by this patient by: PATIENT Chiquita Bedolla, Angela 12/03/20 The medications are managed by (more content not included)... [facility]) KIMBERLY PATEL ([id number]) 1955 [facility] Date Time Provider Department 04/11/22 FRANKIE DENG [facility] During your visit today, we recorded the following information about you: Nanette Hager 04/11/2022 8:25 AM Signed Please schedule a post ed visit Nanette Garcia [facility] 04/11/2022 12:27 PM Signed Post ED visit scheduled with STATOR WINDER on 04/14/22. Nanette Garcia [facility] Allergies As of Date: 04/11/2022 Noted Allergy [...] (COMFORT EZ PEN NEEDLES) 31 gauge x 5/16" Use as directed to inject insulin 5 [...] needed (constipation). - WALKER ROLLATOR SEAT WITH 6" WHEELS - RED Walker rollator with seat - aspirin, enteric coated (ASPIRIN LOW DOSE) 81 mg EC tablet Take 81 mg by mouth once daily. - ranolazine SR (RANEXA) 1,000 mg tab ER 12 hr Take 1,000 mg by mouth twice daily. Meds Comments as of 07/08/2021: 07/08/21 The medications are managed by this patient by: PATIENT Chiquita Bedolla, adelita 02/10/21 The medications are managed by this patient by: PATIENT Chiquita Bedolla Pharm[facility] 12/03/20 The medications are managed by [...] CHF, acu (more content not included)... [facility] KIMBERLY PATEL ([id number]) 1955 [facility] Date Time Provider Department 04/11/22 FRANKIE DENG [facility] During your visit today, we recorded the following information about you: Nanette Macedo Pss 04/11/2022 3:14 PM Signed Please schedule post ed with medics, visit was moved for [facility] Nanette Macedo Pss Huong Cristi 04/11/2022 3:49 PM Signed Called to get [...] (COMFORT EZ PEN NEEDLES) 31 gauge x 5/16" Use as directed to inject insulin 5 [...] - Lancing Device (LANCING DEVICE WITH LANCETS) [facility] Use as directed to check blood sugar 3 times daily, insulin: yes, E11.9 - HYDROcodone-Acetaminoph en (NORCO) 7.5-325 mg per tablet Take 1 tablet by mouth once daily as needed for pain. - polyethylene glycol 3350 (MIRALAX, GLYCOLAX) 17 gram packet Take 1 Packet by mouth once daily as needed (constipation). - WALKER ROLLATOR SEAT WITH 6" WHEELS - RED Walker rollator with seat - aspirin, enteric coated (ASPIRIN LOW DOSE) 81 mg EC tablet Take 81 mg by mouth once daily. - ranolazine SR (RANEXA) 1,000 mg tab ER 12 hr Take 1,000 mg by mouth twice daily. Meds Comments as of 07/08/2021: 07/08/21 The medications are managed by this patient by: PATIENT Chiquita Bedolla, RPadelita 02/10/21 The medications are managed by this patient by: PATIENT Chiquita Bedolla, PharmRizwana 12/03/20 The medications are managed by this patient by: PATIENT Quique Guzmán, BooneD Problem List As Of Date 04/11/2022 Noted Resolved Heart disease (organic) [I51.9] 05/31/2012 08/26/2021 DIYA (obstructive sleep apnea) [G47.33] 05/31/2012 Dyspnea [R06.00] 05/31/2012 12/19/2021 Pneumonia due to COVID-19 virus [U07.1, J12.82] (more content not included)... Normal [facility] 03-28-2022 [facility] Telephone ([facility]) KIMBERLY PATEL ([id number]) 1955 [facility] Date Time Provider Department 03/28/22 FRANKIE DENG [facility] During your visit today, we recorded the following information about you: June Oro Ma 03/28/2022 9:08 AM Signed The following lab order was sent via e-mail to [facility] on 03/28/2022: PATIENT NAME: Kimberly Patel ADDRESS: [address] [place] [id number] PHONE NUMBER: [phone] (home) [phone] (cell) DATE OF : 1955 [facility] ORDERING PROVIDER: Frankie Deng MD LAB [...] Date Reviewed: 03/22/2022 Reviewed by: Susan Cuello [facility] - Fully Assessed Reason for Visit: [facility] [Other] Prescriptions as of 03/28/2022 - insulin needles, DISPOSABLE, (COMFORT EZ PEN NEEDLES) 31 gauge x 5/16" Use as directed to inject insulin 5 [...] needed (constipation). - WALKER ROLLATOR SEAT WITH 6" WHEELS - RED Walker rollator with seat [...] Guzmán, Angela Problem List As Of Date 03/28/2022 Noted Resolved Hea (more content not included)... Normal [facility]20[facility] KIMBERLY PATEL ([id number]) 1955 [facility] Date Time Provider Department 03/24/22 FRANKIE DENG [facility] During your visit today, we recorded the following information about you: Clovis Alarcon MA 03/24/2022 12:33 PM Signed Hema from respiratory called stating patient needs requalification for oxygen. She's requesting to have PCP sign and date note from 03/22 in system and new rx for oxygen. Hema [phone] option 2 Clovis Deng MD 03/25/2022 3:37 PM Signed Noted completed. O2 orders submitted. Thanks. Emerald Lovell MA 03/28/2022 10:53 AM Signed I have faxed the orders and the visit notes to [facility] RT. Emerald Lovell CMA Allergies As of [...] Date Reviewed: 03/22/2022 Reviewed by: Susan Cuello [facility] - Fully Assessed Reason for [...] (COMFORT EZ PEN NEEDLES) 31 gauge x 5/16" Use as directed to inject insulin 5 [...] needed (constipation). - WALKER ROLLATOR SEAT WITH 6" WHEELS - RED Walker rollator with seat [...] by this patient by: LUIS ALBERTO Bedolla PharmD 12/03/20 The medications are managed by this patient by: PATIENT Quique Guzmán PharmD Problem List As Of Date 03/24/2022 Noted Resolved Heart disease (organic) [I51.9] 05/31/2012 08/26/2021 DIYA (obstructive sleep apnea) [G47.33] 05/31/2012 Dyspnea [R06.00] 05/31/2012 12/19/2021 Pneumonia due to COVID-19 virus [U07.1, J12.82] (more content not included)... Normal [facility] CNPNon 03-23-2022 CNPN Telephone ([facility]) KIMBERLY PATEL ([id number]) 1955 [facility] Date Time Provider Department 03/23/22 SHEREE AVENDANO During your visit today, we recorded the following information about you: SAL Manuel 03/23/2022 10:17 AM Addendum Welcome Home Call: a. Date and Time: 10:11 AM 03/23/2022 b. Contact name/relationship: Kimberly caldwell.Have you been active with any Home Care company in the last 60 days? No. d. Are you interesting in initiated services with [facility]? yes (yes or no) e. Do you [...] concerns in the meantime, our # is [phone], option 1 (need to confirm) Thank you [...] Date Reviewed: 03/22/2022 Reviewed by: Susan Cuello [facility] - Fully Assessed Reason for Visit: Home Care [4073] Cmt: Confirmation Call Prescriptions as of 03/23/2022 - insulin needles, DISPOSABLE, (COMFORT EZ PEN NEEDLES) 31 gauge x 5/16" Use as directed to inject insulin 5 [...] needed (constipation). - WALKER ROLLATOR SEAT WITH 6" WHEELS - RED Walker rollator with seat - aspirin, enteric coated (ASPIRIN LOW DOSE) 81 mg EC table (more content not included)... Normal [facility] Lidia 03-09-2022 [facility] Telephone ([facility]) JORGEKIMBERLY E ([id number]) 1955 [facility] Date Time Provider Department 03/09/22 BLAYNE MERISSA [facility]ANC[facility] During your visit today, we recorded the following information about you: Merissa Blayne, PSS 03/09/2022 2:13 PM Signed [facility]piratory is currently providing your patient [...] wearing oxygen. You can add the SmartText '[id number]' to your office note to meet the [...] can continue processing your request. Thank you, [facility] [phone] fax Frankie Deng MD 03/20/2022 10:00 PM Signed Will address at 03/22 visit. Steve Cortes, PSS 03/23/2022 12:[address] Deng, we are in need of re qualification documentation to continue to supply oxygen for your patent, please sign and date your progress note on 03/22/22 and also for a new script and testing. Thank you Steve Cortes [phone] Luke Sanches MA 03/24/2022 12:21 PM Signed Received a call from patient inquiring about oxygen tank. Kimberly [phone] Luke Deng MD 03/25/2022 3:37 PM Signed Noted completed. O2 orders placed. Thanks. Chanell Samuel 03/28/2022 10:57 AM Signed Order, demo and office notes all faxed successfully to [phone] Chanell Samuel March 28, 2022 10:57 AM [...] Oxygen [3494] Prescriptions as of 03/28/2022 - HUMALOG KWIKPEN INSULIN 200 unit/mL (3 mL) injection INJECT 50 UNITS SUBCUTANEOUSLY BEFORE BREAKFAST, 50 UNITS SUBCUTANEOUSLY BEFORE LUNCH, 50 UNITS SUBCUTANEOUSLY BEFORE DINNER. ADMINISTER THIS WITHIN 15 MINUTES BEFORE YOUR MEALS OR IMMEDIATELY AFTER YOUR MEALS. - insulin needles, DISPOSABLE, (COMFORT EZ PEN NEEDLES) 31 gauge x 5/16" Use as directed to inject insulin 5 [...] daily. Scan FreeStyle Gabrielle 2 sensors at [facility] (more content not included)... Normal [facility] CNPNon 02-28[facility]2022 [facility] KIMBERLY PATEL ([id number]) 1955 [facility] Date Time Provider Department 02/28/22 MOE MEYER During your visit today, we recorded the following information about you: Elis Harvey Pss 02/28/2022 4:03 PM Signed Patient requesting Susan call her directly, please advise. Susan Cuello [facility] 02/28/2022 4:44 PM Signed Returned [...] (COMFORT EZ PEN NEEDLES) 32 gauge x 3/16" ndle Use as directed to inject insulin [...] - Lancing Device (LANCING DEVICE WITH LANCETS) [facility] Use as directed to check blood sugar 3 times daily, insulin: yes, E11.9 - HYDROcodone-Acetaminoph en (NORCO) 7.5-325 mg per tablet (more content not included)... Normal [facility] CNPNon 01-23-2022 CNPN Telephone ([facility]) KIMBERLY PATEL ([id number]) 1955 [facility] Date Time Provider Department 01/23/22 SUSAN CUELLO [facility] During your visit today, we recorded the following information about you: Susan Cuello [facility] 01/23/2022 4:41 PM Signed Pt contacted office requesting to speak with pharmD (myself) directly. Returned pt's call who provided an update that her insurance has not yet received CGM request from [employer]. Advised pt that her recent chart notes were faxed to [employer] by both myself and Dr. Meyer's office on 01/06/22 and 01/12/22, respectively. Encouraged pt to contact [employer] as they may be awaiting confirmation from [...] Comments: Nausea/Vomiting Date Reviewed: 01/18/2022 Reviewed by: [facility] RN - Fully Assessed Reason for Visit: Patient [...] (COMFORT EZ PEN NEEDLES) 32 gauge x 3/16" ndle Use as directed to inject insulin [...] once daily. - WALKER ROLLATOR SEAT WITH 6" WHEELS - RED Walker rollator with seat - aspirin, enteric coated (ASPIRIN LOW DOSE) 81 mg EC tablet Take 81 mg by mouth once daily. - ranolazine SR (RANEXA) 1,000 mg tab ER 12 hr Take 1,000 mg by mouth twice daily. Meds Comments as of 07/08/2021: 07/08/21 The medications are managed by this patient by: PATIENT Chiquita Bedolla, [facility] 02/10/21 The medications are managed by this patient by: PATIENT Chiquita Rosario (more content not included)... [facility]) KIMBERLY PATEL ([id number]) 1955 [facility] Date Time Provider Department 01/10/22 GERSON DANIELS FRANCESCA During your visit today, we recorded the following information about you: Gerson Daniels 01/10/2022 3:42 PM Signed For [facility] to provide oxygen for the [...] wearing oxygen. You can add the SmartText '[id number]' to your office note to meet the [...] can continue processing your request. Thank you, [facility] [phone] fax Frankie Deng MD 01/11/2022 8:33 AM [...] Date Reviewed: 01/06/2022 Reviewed by: Susan Cuello [facility] - Fully Assessed Reason for [...] (COMFORT EZ PEN NEEDLES) 32 gauge x 3/16" ndle Use as directed to inject insulin [...] Chest Leslee (more content not included)... Normal [facility] Lidia 01-06-2022 [facility] KIMBERLY PATEL ([id number]) 1955 [facility] Date Time Provider Department 01/06/22 SUSAN CUELLO During your visit today, we recorded the following information about you: Maya Patrick 01/06/2022 1:02 PM Signed Patient calling requesting a call back from Susan Cuello. Patient did not want to tell me what she needed, wants to go over it with Susan. Please call to advise. Susan Cuello [facility] 01/06/2022 3:07 PM Signed Returned pt's call Reports she contacted her new CGM supply company, [employer] which reports they are awaiting paperwork from PCP outlining pt meets criteria for CGM use (fax: [phone]). Will print recent office notes and fax to company as requested at this time. Faxed. Thank you, Susan Cuello, Angela Chavarria LPN 01/12/2022 8:41 AM Signed faed office notes from last appt with savel and pharmacy to [facility]. [phone] Allergies As of Date: 01/06/2022 Noted Allergy Reaction DILAUDID (HYDROMORPHONE (BULK)) 05/30/2012 11 - Vomiting JARDIANCE (EMPAGLIFLOZIN) 11/07/2021 14 - Other: See Comments Comments: UTI METFORMIN 05/30/2012 6 - Diarrhea MORPHINE 05/30/2012 11 - Vomiting ONDANSETRON 02/14/2021 16 - Unknown PENICILLINS 05/30/2012 2 - Rash TRULICITY (DULAGLUTIDE) 11/07/2021 8 - GI Upset Comments: Nausea/Vomiting Date Reviewed: 01/06/2022 Reviewed by: Susan Cuello [facility] - Fully Assessed Reason for Visit: Patient Question [1087] Prescriptions as of 01/12/2022 - insulin detemir [...] (COMFORT EZ PEN NEEDLES) 32 gauge x 3/16" ndle Use as directed to inject insulin [...] once daily. - WALKER ROLLATOR SEAT WITH 6" WHEELS - RED Walker rollator with seat - aspirin, enteric coated (ASPIRIN LOW DOSE) 81 mg EC tablet Take 81 mg by mouth once daily. - ranolazine SR (RANEXA) 1,000 mg tab ER 12 hr Take 1,000 mg by mouth twice daily. Meds Comments as of 07/08/2021: 07/08/21 The medications are managed by this patient by (more content not included)... Normal [facility] CNPEstrellita 12-30-2021 [facility] KIMBERLY PATEL ([id number]) 1955 [facility] Date Time Provider Department 12/30/21 MOE MEYER During your visit today, we recorded the following information about you: India Chavarria LPN 12/30/2021 10:41 AM Signed Prior Authorization was done for basaglar and was denied. Basaglar SnowikPen is denied because it is not on your plan's Drug List (formulary). Medication authorization requires the following: (1) You need to try one (1) of these covered drugs: (a) Levemir FlexTouch. (b) Tresiba FlexTouch Prior Authorization pending for novolog unless ok to change to covered alternatives Covered meds are humalog, lyumjev, insulin lispro Susan Cuello RPh 01/06/2022 12:04 PM Signed Adjusted to Levemir [...] (COMFORT EZ PEN NEEDLES) 32 gauge x 3/16" ndle Use as directed to inject insulin [...] - Lancing Device (LANCING DEVICE WITH LANCETS) [facility] Use as directed to check blood [...] once daily. - WALKER ROLLATOR SEAT WITH 6" WHEELS - RED Walker rollator with seat - aspirin, enteric coated (ASPIRIN LOW DOSE) 81 mg EC tablet Take 81 mg by mouth once daily. - ranolazine SR (RANEXA) 1,000 mg tab ER 12 hr Take 1,000 mg by mouth twice daily. Meds Comments as of 07/08/2021: 07/08/21 The medications are managed by this patient by: PATIENT Chiquita Bedolla, [facility] 02/10/21 The medica (more content not included)... Normal [facility] CNPNon 12-29-2021 CNPN Telephone (FAMPHN) KIMBERLY PATEL ([id number]) 1955 [facility] Date Time Provider Department 12/29/21 MOE MEYER During your visit today, we recorded the following information about you: India Chavarria LPN 12/29/2021 8:48 AM Signed [employer] glucose monitoring supplies form on dr jose [...] (COMFORT EZ PEN NEEDLES) 32 gauge x 3/16" ndle Use as directed to inject insulin [...] - Lancing Device (LANCING DEVICE WITH LANCETS) [facility] Use as directed to check blood sugar [...] once daily. - WALKER ROLLATOR SEAT WITH 6" WHEELS - RED Walker rollator with seat - aspirin, enteric coated (ASPIRIN LOW DOSE) 81 mg EC tablet Take 81 mg by mouth once daily. - ranolazine SR (RANEXA) 1,000 mg tab ER 12 hr Take 1,000 mg by mouth twice daily. Meds Comments as of 07/08/2021: 07/08/21 The medications are managed by this patient by: PATIENT Chiquita Bedolla, [facility] 02/10/21 The medications are managed by this patient by: PATIENT Chiquita Bedolla PharmRizwana 12/03/20 The medications are managed by this patient by: PATIENT Quique Guzmán, BooneD Problem List As Of Date 12/29/2021 Noted [...] (HCC) [I50.9] (more content not included)... Normal [facility] Telephone (FAMPHN) KIMBERLY PATEL ([id number]) 1955 [facility] Date Time Provider Department 12/29/21 MOE MEYER During your visit today, we recorded the following information about you: India Chavarria LPN 12/29/2021 11:57 AM Signed Prior Authorization pending for basaglar and novolog Susan Cuello RPh 01/06/2022 12:04 PM Signed Adjusted to Levemir and Humalog per insurance at recent pharmD fern on 01/06/22. Thank you, Boone AguilarD India Chavarria LPN 01/17/2022 2:32 PM Signed Looks like an appeal was done for pts novolog and approved until 2021. Will send to pharmacy to see if they want pt on novolog or humalog. [facility] Phone # Susan Cuello RPh 01/17/2022 4:42 PM Signed Noted. Will not make any changes today though will plan to discuss this with pt further at next pharmD fern. Thank you, Susan Cuello PharmD Allergies As of Date: 12/29/2021 Noted [...] (COMFORT EZ PEN NEEDLES) 32 gauge x 3/16" ndle Use as directed to inject insulin [...] - Lancing Device (LANCING DEVICE WITH LANCETS) [facility] Use as directed to check blood sugar [...] once daily. - WALKER ROLLATOR SEAT WITH 6" WHEELS - RED Walker rollator with seat - aspirin, enteric coated (ASPIRIN LOW DOSE) 81 mg EC tablet Take 81 mg by mouth once daily. - ranolazine SR (RANEXA) 1,000 mg tab ER 12 hr Take 1,000 mg by mouth twice daily. Meds Comments as of 07/08/2021: 07/08/21 The medications are managed by (more content not included)... Normal [facility] Lidia 12-20-2021 HEATHERN Telephone (FAHUDM) KIMBERLY PATEL ([id number]) 1955 [facility] Date Time Provider Department 12/20/21 MOE MEYER During your visit today, we recorded the following information about you: Arelis Viramontes RN 12/20/2021 4:[address] [facility], they cannot accept her for home care as the order is written. They are unable to perform oxygen testing however it looks like there is a consult to medical care at home is process for this. They can do home care services such as PT, OT, MANUAL QA TESTER, and senior care but will need a new order, demographics, insurance, and chart notes from at least a virtual appointment (cannot accept phone appt). Moe Myeer MD 12/20/2021 5:00 PM Signed Pt is [...] (COMFORT EZ PEN NEEDLES) 32 gauge x 3/16" ndle Use as directed to inject insulin [...] once daily. - WALKER ROLLATOR SEAT WITH 6" WHEELS - RED Walker rollator with seat - aspirin, enteric coated (ASPIRIN LOW DOSE) 81 mg EC tablet Take 81 mg by mouth once daily. - ranolazine SR (RANEXA) 1,000 mg tab ER 12 hr Take 1,000 mg by mouth twice daily. Meds Comments as of 07/08/2021: 07/08/21 The medications are managed by this patient by: PATIENT Chiquita Bedolla, adelita 02/10/21 The medications are managed by this patient by: PATIENT Chiquita Bedolla, PharmRizwana 12/03/20 The medica (more content not included)... Normal [facility] CNPEstrellita [facility] KIMBERLY PATEL ([id number]) 1955 [facility] Date Time Provider Department 12/19/21 MOE MEYER [facility] During your visit today, we recorded the following information about you: KRISTIN Mccoy 12/21/2021 9:18 AM Addendum [facility] REFERRAL Date Referral Received: 12/19/2021 Referral Source: [facility] Physician office Date of : 1955 Age: [age] year old PCP: No primary care provider on file. Visit address from [facility]: [address] [place] [id number] Reason for referral: Ongoing Primary Care Name [...] services ordered: None Primary Insurance Company: Payor: [facility] MED[facility]ARE / Plan: [facility] DUAL COMPLETE HMO SNP / Product Type: Medicare / Primary Insurance ID Number: [id number] KRISTIN Mccoy 12/21/2021 9:18 AM Signed Referral received from Dr. Moe Meyer on 12/19/2021 for [facility] services. Referral sent to production operations manager for review. Referral source will be [...] scheduled with Dr. Frankie Deng. KRISTIN Mccoy 01/03/2022 2:24 PM Signed Date contacted Patient/Family: 01/03/2022 Name of primary contact and phone number for scheduling: PT [phone] E-Script Pharmacy confirmed and entered in Wortal: Yes Does the patient currently take any blood thinning medications ? like Coumadin or Warfarin? Yes, PLAVIX Is the patient taking pain medication? No Does the patient need help transferring out of bed? b. needs physical assistance by another person Do you have any other services such as home health care, other physicians, hospice, respiratory, DME, etc. coming out to your home?: [facility] and PT AND MANUAL QA TESTER BUT THEY HAVE NOT CALLED Pt TO SCHEDULE Patient Concerns: N/A Do you have any Advance Directives such as a Power of Men'S Locker Room Attendant or a Living Will? If so, please have these out and available for the provider to review on the first visit. Or if the patient/caregiver has the capability to scan or send a copy to an email please have them send copies to [email or web address] . During this visit, your physician [...] etc. Current patient phone numbers in Demographics: [phone] (home) [phone] (cell) Our practice utilizes an automated appointment [...] if needed. Our office phone number is [phone]. Appointments must be confirmed via the automated system or a telephone call to the office before sending the provider out. Since we are talking today and confirming the first visit appointment, you will not need to call us back when (more content not included)... Normal [facility] Telephone (HCSIND) KIMBERLY PATEL ([id number]) 1955 [facility] Date Time Provider Department 12/19/21 RIANA GARCIA During your visit today, we recorded the following information about you: KRISTIN Cramer 12/19/2021 8:32 AM Signed Thank you for the referral of your patient to [facility]. At this time, we are at capacity and are unable to accept your patient. In order to help your patient receive quality home care, we have included reputable agencies that service this area: [employer] or [facility] [phone]. Please contact this agency and they will work with your patient to arrange timely services. Thank you, KRISTIN Cramer 12/19/2021 8:31 AM KRISTIN Pickard 12/19/2021 12:11 PM Addendum Called and spoke with patient about a different home care company. She requested [employer]. Gave patient their phone number and faxed demographics, insurance and photo id, referral and office notes to [facility] [phone]. Received successful fax transmission. 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 Normal [facility] Lidia 12-16-2021 C[facility]N [facility] KIMBERLY PATEL ([id number]) 1955 [facility] Date Time Provider Department 12/16/21 ADALGISA CANAS [facility] During your visit today, we recorded the following information about you: KRISTIN Drew 12/16/2021 1:43 PM Signed [facility] received your Oxygen order. [...] wearing oxygen. You can add the SmartText '[id number]' to your office note to meet the [...] can continue processing your request. Thank you, [facility] [phone] fax Lurdes Tovar Ma 12/19/2021 1:27 PM [...] Date Reviewed: 12/16/2021 Reviewed by: Susan Cuello [facility] - Fully Assessed Reason for [...] (COMFORT EZ PEN NEEDLES) 32 gauge x 3/16" ndle Use as directed to inject insulin [...] mouth on (more content not included)... Normal [facility] CNPNon 12-14-20[facility]) KIMBERLY PATEL ([id number]) 1955 [facility] Date Time Provider Department 12/14/21 MOE MEYER [facility] During your visit today, we recorded the following information about you: Alexandro Qureshi RN 12/14/2021 10:51 AM Signed Patient is requesting an order for nasal cannulas sent to [facility] respiratory. Pended. Allergies As of Date: 12/14/2021 Noted Allergy Reaction DILAUDID (HYDROMORPHONE (BULK)) 05/30/2012 11 - Vomiting JARDIANCE (EMPAGLIFLOZIN) 11/07/2021 14 - Other: See Comments Comments: UTI METFORMIN 05/30/2012 6 - Diarrhea MORPHINE 05/30/2012 11 - Vomiting ONDANSETRON 02/14/2021 16 - Unknown PENICILLINS 05/30/2012 2 - Rash TRULICITY (DULAGLUTIDE) 11/07/2021 8 - GI Upset Comments: Nausea/Vomiting Date Reviewed: 11/23/2021 Reviewed by: Susan Cuello [facility] - Fully Assessed Reason for Visit: Orders [681] Primary Visit Diagnosis:Chronic hypoxemic respiratory failure (HCC) [J96.11] Order(s):CONSULT TO [facility] [[id number]] Order #: [id number]: 1 Prescriptions as of 12/15/2021 - metoprolol [...] (COMFORT EZ PEN NEEDLES) 32 gauge x 3/16" ndle Use as directed to inject insulin [...] once daily. - WALKER ROLLATOR SEAT WITH 6" WHEELS - RED Walker rollator with seat - aspirin, enteric coated (ASPIRIN LOW DOSE) 81 mg EC tablet Take 81 mg by mouth once daily. - ranolazine SR (RANEXA) 1,000 mg tab ER 12 hr Take 1,000 mg by mouth twice daily. Meds Comments as of 07/08/2021: 07/08/21 The medications are managed by this patient by: LUIS ALBERTO Bedolla adelita 02/10/21 The medications are managed by this patient by: LUIS ALBERTO Bedolla PharmD 12/03/20 The medications are managed by this patient by: PATIENT Quique Guzmán PharmD Problem List As Of Date 12/14/2021 Noted Resolved Heart disease (organic) [I51.9] 05/31/2012 08/26/2021 DIYA (obstructive sleep apnea) [G47.33] 05/31/2012 Dyspnea [R06.00] 05/31/2012 Pneumonia due to COVID-19 virus [U07.1, J12.82] 10/13/2020 08/26/2021 CHF (congestive heart failure) (HCC) [I50.9] 10/17/2020 Type 2 diabetes mellitu (more content not included)... Normal [facility] Glucose,Bedsideon 10-12-2021 Glucose [Mass/Vol] 252 mg/dL High 70-100 [facility] Comment on above: Result Comment: Test performed by glucose meter. Results may be 10%-15% lower than serum/plasma values. (CLIA ID [id number]) Performed By: #### L ACTS #### [facility] [address] [place] [address] Basic Metabolic Panelon 09-28 Anion gap [Moles/Vol] 2 mmol/L Low 3-13 [facility] Comment on above: Performed By: #### H EMDF, LIPA4, LACTS, CMP3M #### [facility] [address] [place] [address] CO2 [Moles/Vol] 30 mmol/L Normal 22-30 [facility] Comment on above: Performed By: #### H EMDF, LIPA4, LACTS, CMP3M #### [facility] [address] [place] [address] Creatinine [Mass/Vol] 1.46 mg/dL High 0.52-1.25 [facility] Comment on above: Performed By: #### H EMDF, LIPA4, LACTS, CMP3M #### [facility] [address] [place] [address] GFR/1.73 sq M.predicted among blacks MDRD (S/P/Bld) [Vol rate/Area] 43.6 mL/min/{1.73_m2} Abnormal >60 [facility] Comment on above: Performed By: #### H EMDF, LIPA4, LACTS, CMP3M #### [facility] [address] [place] [address] GFR/1.73 sq M.predicted among non-blacks MDRD (S/P/Bld) [Vol rate/Area] 37.6 mL/min/{1.73_m2} Abnormal >60 [facility] Comment on [...] #### H EMDF, LIPA4, LACTS, CMP3M #### [facility] [address] [place] [address] Urea nitrogen [Mass/Vol] 27 mg/dL High 9-20 [facility] Comment on above: Performed By: #### H EMDF, LIPA4, LACTS, CMP3M #### [facility] [address] [place] [address] Chloride [Moles/Vol] 105 mmol/L Normal 98-107 [facility] Comment on above: Performed By: #### H EMDF, LIPA4, LACTS, CMP3M #### [facility] [address] [place] [address] Potassium [Moles/Vol] 4.8 mmol/L Normal 3.5-5.1 [facility] Comment on above: Performed By: #### H EMDF, LIPA4, LACTS, CMP3M #### [facility] [address] [place] [address] Sodium [Moles/Vol] 137 mmol/L Normal 135-145 [facility] Comment on above: Performed By: #### H EMDF, LIPA4, LACTS, CMP3M #### [facility] [address] [place] [address] Calcium [Mass/Vol] 8.9 mg/dL Normal 8.4-10.4 [facility] Comment on above: Performed By: #### H EMDF, LIPA4, LACTS, CMP3M #### [facility] [address] [place] [address] Glucose [Mass/Vol] 221 mg/dL High 70-100 [facility] Comment on above: Performed By: #### H EMDF, LIPA4, LACTS, CMP3M #### [facility] [address] [place] [address] Basic Metabolic Panel w/ Ref aidan to MGon 10-11-2021 Anion gap [Moles/Vol] 2 mmol/L Low 3 - 13 mmol/L [facility] Chloride [Moles/Vol] 105 mmol/L 98 - 10 7 mmol/L [facility] CO2 [Moles/Vol] 30 mmol/L 22 - 30 mmol/L [facility] Creatinine [Mass/Vol] 1.46 mg/dL High 0.52 - 1.25 mg/dL [facility] EGFR IF NonAfrican Gambian 37.6 mL/min Abnormal >60 [facility] GFR/1.73 sq [...] 15.9 % High 11.5 - 14.5 % [facility] Platelet mean volume (Bld) [Entitic vol] 6.2 fL Low 7.4 - 10.4 fL [facility] Platelets (Bld) [#/Vol] 363 10*3/uL 140 - 440 10*3/uL [facility] RBC (Bld[facility] [#/Vol] 3.14 10*6/uL Low 3.80 - 5.2 0 10*6/uL [facility] WBC (Bld) [#/Vol] 5.7 10*3/uL 3.6 - 10.7 10*3/uL [facility] Glucose,Bedsideon 10-11-2021 Glucose [Mass/Vol] 213 mg/dL High 70-100 [facility] Comment on above: Result Comment: Test performed by glucose meter. Results may be 10%-15% lower than serum/plasma values. (CLIA ID [id number]) Performed By: #### H EMDF, LIPA4, LACTS, CMP3M #### [facility] [address] [place] [address] Hemogram w/ Autodiffon 10-11 Erythrocyte distribution width (RBC) [Ratio] 15.9 % High 11.5-14.5 [facility] Comment on above: Performed By: #### H EMDF, LIPA4, LACTS, CMP3M #### [facility] [address] [place] [address] Hematocrit (Bld) [Volume fraction] 26.5 % Low 35.0-47.0 [facility] Comment on above: Performed By: #### H EMDF, LIPA4, LACTS, CMP3M #### [facility] [address] [place] [address] Hemoglobin (Bld) [Mass/Vol] 8.5 g/dL Low 11.7-16.0 [facility] Comment on above: Performed By: #### H EMDF, LIPA4, LACTS, CMP3M #### [facility] [address] [place] [address] MCH (RBC) [Entitic mass] 27.1 pg Normal 26.0-34.0 [facility] Comment on above: Performed By: #### H EMDF, LIPA4, LACTS, CMP3M #### [facility] [address] [place] [address] MCHC 32.1 % Normal 32.0-36.0 [facility] Comment on above: Performed By: #### H EMDF, LIPA4, LACTS, CMP3M #### [facility] [address] [place] [address] MCV (RBC) [Entitic vol] 84.5 fL Normal 79.0-98.0 [facility] Comment on above: Performed By: #### H EMDF, LIPA4, LACTS, CMP3M #### [facility] [address] [place] [address] Platelet mean volume (Bld) [Entitic vol] 6.2 fL Low 7.4-10.4 [facility] Comment on above: Performed By: #### H EMDF, LIPA4, LACTS, CMP3M #### [facility] [address] [place] [address] Platelets (Bld) [#/Vol] 363 10*3/uL Normal 140-440 [facility] Comment on above: Performed By: #### H EMDF, LIPA4, LACTS, CMP3M #### [facility] [address] [place] [address] RBC (Bld) [#/Vol] 3.14 10*6/uL Low 3.80-5.20 [facility] Comment on above: Performed By: #### H EMDF, LIPA4, LACTS, CMP3M #### [facility] [address] [place] [address] WBC (Bld) [#/Vol] 5.7 10*3/uL Normal 3.6-10.7 [facility] Comment on above: Performed By: #### H EMDF, LIPA4, LACTS, CMP3M #### [facility] [address] [place] [address] Manual Diffon 10-11-2021 Abs Lymph Cnt 1.3 10*3/uL Normal 1.1-4.5 [facility] Comment on above: Performed By: #### H EMDF, LIPA4, LACTS, CMP3M #### [facility] [address] [place] [address] Abs Monocyte Cnt 0.5 10*3/uL Normal 0.2-1.1 [facility] Comment on above: Performed By: #### H EMDF, LIPA4, LACTS, CMP3M #### [facility] [address] [place] [address] Abs Neutrophile Cnt 3.6 10*3/uL Normal 2.2-8.2 [facility] Comment on above: Performed By: #### H EMDF, LIPA4, LACTS, CMP3M #### [facility] [address] [place] [address] Anisocytosis Slight Normal [facility] Comment on above: Performed By: #### H EMDF, LIPA4, LACTS, CMP3M #### [facility] [address] [place] [address] Elliptocytes Slight Normal [facility] Comment on above: Performed By: #### H EMDF, LIPA4, LACTS, CMP3M #### [facility] [address] [place] [address] Lymphocytes 22 % Normal 20-40 [facility] Comment on above: Performed By: #### H EMDF, LIPA4, LACTS, CMP3M #### [facility] [address] [place] [address] Metamyelocytes 4 % Abnormal <1 [facility] Comment on above: Performed By: #### H EMDF, LIPA4, LACTS, CMP3M #### [facility] [address] [place] [address] Monocytes 9 % Normal 2-10 [facility] Comment on above: Performed By: #### H EMDF, LIPA4, LACTS, CMP3M #### [facility] [address] [place] [address] Myelocytes 1 % Abnormal <1 [facility] Comment on above: Performed By: #### H EMDF, LIPA4, LACTS, CMP3M #### [facility] [address] [place] [address] Ovalocytes Slight Normal [facility] Comment on above: Performed By: #### H EMDF, LIPA4, LACTS, CMP3M #### [facility] [address] [place] [address] Poikilocytosis Slight Normal [facility] Comment on above: Performed By: #### H EMDF, LIPA4, LACTS, CMP3M #### [facility] [address] [place] [address] Polychromasia Slight Normal [facility] Comment on above: Performed By: #### H EMDF, LIPA4, LACTS, CMP3M #### [facility] [address] [place] [address] RBC Morphology ABNORMAL Normal [facility] Comment on above: Performed By: #### H EMDF, LIPA4, LACTS, CMP3M #### [facility] [address] [place] [address] Seg Neutrophils 64 % Normal 40-80 [facility] Comment on above: Performed By: #### H EMDF, LIPA4, LACTS, CMP3M #### [facility] [address] [place] [address] Abs Baso Cnt 0.0 10*3/uL Normal 0.0-0.2 [facility] Comment on above: Performed By: #### H EMDF, LIPA4, LACTS, CMP3M #### [facility] [address] [place] [address] Abs Eosin Cnt 0.0 10*3/uL Normal 0.0-0.5 [facility] Comment on above: Performed By: #### H EMDF, LIPA4, LACTS, CMP3M #### [facility] [address] [place] [address] Bands 0 % Normal 0-3 [facility] Comment on above: Performed By: #### H EMDF, LIPA4, LACTS, CMP3M #### [facility] [address] [place] [address] Basophils 0 % Normal 0-2 [facility] Comment on above: Performed By: #### H EMDF, LIPA4, LACTS, CMP3M #### [facility] [address] [place] [address] Cells counted [address] [facility] Comment on above: Performed By: #### H EMDF, LIPA4, LACTS, CMP3M #### [facility] [address] [place] [address] Eosinophils 0 % Low 1-6 [facility] Comment on above: Performed By: #### H EMDF, LIPA4, LACTS, CMP3M #### [facility] [address] [place] [address] Manual Differentialon 2020 Absolute Baso # 0.0 10*3/uL 0.0 - 0.2 10*3/uL [facility] Absolute Eos # 0.0 10*3/uL 0.0 - 0.5 10*3/uL [facility] Absolute Lymph # 1.3 10*3/uL 1.1 - 4.5 10*3/uL [facility] Absolute [place] # 0.5 10*3/uL 0.2 - 1.1 10*3/uL [...] Interpretation and review of laboratory results Abnormal [facility] Basic Metabolic Panelon 09-28 Calcium [Mass/Vol] 8.6 mg/dL Normal 8.4-10.4 [facility] Comment on above: Performed By: #### H EMDF, LIPA4, LACTS, CMP3M #### [facility] [address] [place] [address] Anion gap [Moles/Vol] 0 mmol/L Low 3-13 [facility] Comment on above: Performed By: #### H EMDF, LIPA4, LACTS, CMP3M #### [facility] [address] [place] [address] CO2 [Moles/Vol] 30 mmol/L Normal 22-30 [facility] Comment on above: Performed By: #### H EMDF, LIPA4, LACTS, CMP3M #### [facility] [address] [place] [address] Creatinine [Mass/Vol] 1.42 mg/dL High 0.52-1.25 [facility] Comment on above: Performed By: #### H EMDF, LIPA4, LACTS, CMP3M #### [facility] [address] [place] [address] GFR/1.73 sq M.predicted among blacks MDRD (S/P/Bld) [Vol rate/Area] 45.1 mL/min/{1.73_m2} Abnormal >60 [facility] Comment on above: Performed By: #### H EMDF, LIPA4, LACTS, CMP3M #### [facility] [address] [place] [address] GFR/1.73 sq M.predicted among non-blacks MDRD (S/P/Bld) [Vol rate/Area] 38.9 mL/min/{1.73_m2} Abnormal >60 [facility] Comment on above: Result Comment: [...] #### H EMDF, LIPA4, LACTS, CMP3M #### [facility] [address] [place] [address] Glucose [Mass/Vol] 206 mg/dL High 70-100 [facility] Comment on above: Performed By: #### H EMDF, LIPA4, LACTS, CMP3M #### [facility] [address] [place] [address] Urea nitrogen [Mass/Vol] 30 mg/dL High 9-20 [facility] Comment on above: Performed By: #### H EMDF, LIPA4, LACTS, CMP3M #### [facility] [address] [place] [address] Chloride [Moles/Vol] 106 mmol/L Normal 98-107 [facility] Comment on above: Performed By: #### H EMDF, LIPA4, LACTS, CMP3M #### [facility] [address] [place] [address] Potassium [Moles/Vol] 5.2 mmol/L High 3.5-5.1 [facility] Comment on above: Performed By: #### H EMDF, LIPA4, LACTS, CMP3M #### [facility] [address] [place] [address] Sodium [Moles/Vol] 136 mmol/L Normal 135-145 [facility] Comment on above: Performed By: #### H EMDF, LIPA4, LACTS, CMP3M #### [facility] [address] [place] [address] Basic Metabolic Panel w/ Ref aidan to MGon 10-10-2021 Anion gap [Moles/Vol] 0 mmol/L Low 3 - 13 mmol/L [facility] Calcium [Mass/Vol] 8.6 mg/dL 8.4 - 10. 4 mg/dL [facility] Chloride [Moles/Vol] 106 mmol/L 98 - 10 7 mmol/L [facility] CO2 [Moles/Vol] 30 mmol/L 22 - 30 mmol/L [facility] Creatinine [Mass/Vol] 1.42 mg/dL High 0.52 - 1.25 mg/dL [facility] EGFR IF NonAfrican Gambian 38.9 mL/min Abnormal >60 [facility] GFR/1.73 sq M.predicted among blacks MDRD (S/P/Bld) [Vol rate/Area] 45.1 mL/min/{1.73_m2} Abnormal >60 [facility] Glucose [Mass/Vol] 206 mg/dL High 70 - 100 mg/dL [facility] Interpretation and review of laboratory results Abnormal [facility] Potassium [Moles/Vol] 5.2 mmol/L High 3.5 - 5.1 mmol/L [facility] Sodium [Moles/Vol] 136 mmol/L 135 - 145 mmol/L [facility] Urea nitrogen (BldV) [Mass/Vol] 30 mg/dL High 9 - 20 mg/dL [facility] CBC Auto Differentialon 09-28 Hematocrit (Bld) [Volume fraction] 25.5 % Low 35.0 - 47.0 % [facility] Hemoglobin.gastrointest inal spec 1 Ql (Stl) 8.2 g/dL Low 11.7 - 16.0 g/dL [facility] Interpretation and review of laboratory results Abnormal [...] [#/Vol] 5.5 10*3/uL 3.6 - 10.7 10*3/uL [facility] Glucose,Bedsideon 10-10-2021 Glucose [Mass/Vol] 166 mg/dL High [address] Comment on above: Result Comment: Test performed by glucose meter. Results may be 10%-15% lower than serum/plasma values. (CLIA ID [id number]) Performed By: #### H EMDF, LIPA4, LACTS, CMP3M #### [facility] [address] [place] [address] Glucose [Mass/Vol] 261 mg/dL High [address] Comment on above: Result Comment: Test performed by glucose meter. Results may be 10%-15% lower than serum/plasma values. (CLIA ID [id number]) Performed By: #### B GLU #### [facility] [address] [place] [address] Glucose [Mass/Vol] 231 mg/dL [address] Comment on above: Result Comment: Test performed by glucose meter. Results may be 10%-15% lower than serum/plasma values. (CLIA ID [id number]) Performed By: #### H EMDF, LIPA4, LACTS, CMP3M #### [facility] [address] [place] [address] Glucose [Mass/Vol] 184 mg/dL [address] Comment on above: Result Comment: Test performed by glucose meter. Results may be 10%-15% lower than serum/plasma values. (CLIA ID [id number]) Performed By: #### H EMDF, LIPA4, LACTS, CMP3M #### [facility] [address] [place] [address] Glucose [Mass/Vol] 228 mg/dL [address] Comment on above: Result Comment: Test performed by glucose meter. Results may be 10%-15% lower than serum/plasma values. (CLIA ID [id number]) Performed By: #### H EMDF, LIPA4, LACTS, CMP3M #### [facility] [address] [place] [address] Hemogram w/ Autodiffon 10-10 Erythrocyte distribution width (RBC) [Ratio] 16.3 % High 11.5-14.5 [facility] Comment on above: Performed By: #### H EMDF, LIPA4, LACTS, CMP3M #### [facility] [address] [place] [address] Hematocrit (Bld) [Volume fraction] 25.5 % Low 35.0-47.0 [facility] Comment on above: Performed By: #### H EMDF, LIPA4, LACTS, CMP3M #### [facility] [address] [place] [address] Hemoglobin (Bld) [Mass/Vol] 8.2 g/dL Low 11.7-16.0 [facility] Comment on above: Performed By: #### H EMDF, LIPA4, LACTS, CMP3M #### [facility] [address] [place] [address] MCH (RBC) [Entitic mass] 27.1 pg Normal 26.0-34.0 [facility] Comment on above: Performed By: #### H EMDF, LIPA4, LACTS, CMP3M #### [facility] [address] [place] [address] MCHC 32.1 % Normal 32.0-36.0 [facility] Comment on above: Performed By: #### H EMDF, LIPA4, LACTS, CMP3M #### [facility] [address] [place] [address] MCV (RBC) [Entitic vol] 84.3 fL Normal 79.0-98.0 [facility] Comment on above: Performed By: #### H EMDF, LIPA4, LACTS, CMP3M #### [facility] [address] [place] [address] Platelet mean volume (Bld) [Entitic vol] 6.1 fL Low 7.4-10.4 [facility] Comment on above: Performed By: #### H EMDF, LIPA4, LACTS, CMP3M #### [facility] [address] [place] [address] Platelets (Bld) [#/Vol] 326 10*3/uL Normal 140-440 [facility] Comment on above: Performed By: #### H EMDF, LIPA4, LACTS, CMP3M #### [facility] [address] [place] [address] RBC (Bld) [#/Vol] 3.02 10*6/uL Low 3.80-5.20 [facility] Comment on above: Performed By: #### H EMDF, LIPA4, LACTS, CMP3M #### [facility] [address] [place] [address] WBC (Bld) [#/Vol] 5.5 10*3/uL Normal 3.6-10.7 [facility] Comment on above: Performed By: #### H EMDF, LIPA4, LACTS, CMP3M #### [facility] [address] [place] [address] Manual Diffon 10-10-2021 Abs Baso Cnt 0.1 10*3/uL Normal 0.0-0.[address] [facility] Comment on above: Performed By: #### H EMDF, LIPA4, LACTS, CMP3M #### [facility] [address] [place] [address] Abs Eosin Cnt 0.1 10*3/uL Normal 0.0-0.5 [facility] Comment on above: Performed By: #### H EMDF, LIPA4, LACTS, CMP3M #### [facility] [address] [place] [address] Abs Lymph Cnt 1.1 10*3/uL Normal 1.1-4.5 [facility] Comment on above: Performed By: #### H EMDF, LIPA4, LACTS, CMP3M #### [facility] [address] [place] [address] Abs Monocyte Cnt 0.3 10*3/uL Normal 0.2-1.1 [facility] Comment on above: Performed By: #### H EMDF, LIPA4, LACTS, CMP3M #### [facility] [address] [place] [address] Abs Neutrophile Cnt 3.8 10*3/uL Normal 2.2-8.2 [facility] Comment on above: Performed By: #### H EMDF, LIPA4, LACTS, CMP3M #### [facility] [address] [place] [address] Anisocytosis Slight Normal [facility] Comment on above: Performed By: #### H EMDF, LIPA4, LACTS, CMP3M #### [facility] [address] [place] [address] Basophils 1 % Normal 0-2 [facility] Comment on above: Performed By: #### H EMDF, LIPA4, LACTS, CMP3M #### [facility] [address] [place] [address] Eosinophils 1 % Normal 1-6 [facility] Comment on above: Performed By: #### H EMDF, LIPA4, LACTS, CMP3M #### [facility] [address] [place] [address] Lymphocytes 20 % Normal 20-40 [facility] Comment on above: Performed By: #### H EMDF, LIPA4, LACTS, CMP3M #### [facility] [address] [place] [address] Metamyelocytes 3 % Abnormal <1 [facility] Comment on above: Performed By: #### H EMDF, LIPA4, LACTS, CMP3M #### [facility] [address] [place] [address] Monocytes 5 % Normal 2-10 [facility] Comment on above: Performed By: #### H EMDF, LIPA4, LACTS, CMP3M #### [facility] [address] [place] [address] Myelocytes 1 % Abnormal <1 [facility] Comment on above: Performed By: #### H EMDF, LIPA4, LACTS, CMP3M #### [facility] [address] [place] [address] Ovalocytes Slight Normal [facility] Comment on above: Performed By: #### H EMDF, LIPA4, LACTS, CMP3M #### [facility] [address] [place] [address] Poikilocytosis Slight Normal [facility] Comment on above: Performed By: #### H EMDF, LIPA4, LACTS, CMP3M #### [facility] [address] [place] [address] Polychromasia Slight Normal [facility] Comment on above: Performed By: #### H EMDF, LIPA4, LACTS, CMP3M #### [facility] [address] [place] [address] RBC Morphology ABNORMAL Normal [facility] Comment on above: Performed By: #### H EMDF, LIPA4, LACTS, CMP3M #### [facility] [address] [place] [address] Seg Neutrophils 69 % Normal 40-80 [facility] Comment on above: Performed By: #### H EMDF, LIPA4, LACTS, CMP3M #### [facility] [address] [place] [address] Bands 0 % Normal 0-3 [facility] Comment on above: Performed By: #### H EMDF, LIPA4, LACTS, CMP3M #### [facility] [address] [place] [address] Cells counted [address] [facility] Comment on above: Performed By: #### H EMDF, LIPA4, LACTS, CMP3M #### [facility] [address] [place] [address] Manual Differentialon 2020 Absolute Baso # 0.1 10*3/uL 0.0 - 0.2 10*3/uL [facility] Absolute Eos # 0.1 10*3/uL 0.0 - 0.5 10*3/uL [facility] Absolute Lymph # 1.1 10*3/uL 1.1 - 4.5 10*3/uL [facility] Absolute [place] # 0.3 10*3/uL 0.2 - 1.1 10*3/uL [...] [facility] TOTAL CELLS COUNTED 100 [facility] POCT Glucoseon 10-10-2021 Glucose [Mass/Vol] 166 mg/dL High 70 - 100 mg/dL [facility] Interpretation and review of laboratory results Abnormal [facility] Glucose [Mass/Vol] 261 mg/dL High 70 - 100 mg/dL [facility] Interpretation and review of laboratory results Abnormal [facility] Glucose [Mass/Vol] 231 mg/dL High 70 - 100 mg/dL [facility] Interpretation and review of laboratory results Abnormal [facility] Glucose [Mass/Vol] 184 mg/dL High 70 - 100 mg/dL [facility] Interpretation and review of laboratory results Abnormal [facility] Basic Metabolic Panelon 09-28 Anion gap [Moles/Vol] 4 mmol/L Normal 3-13 [facility] Comment on above: Performed By: #### L ACTS #### [facility] [address] [place] [address] Calcium [Mass/Vol] 9.3 mg/dL Normal 8.4-10.4 [facility] Comment on above: Performed By: #### L ACTS #### [facility] [address] [place] [address] CO2 [Moles/Vol] 29 mmol/L Normal 22-30 [facility] Comment on above: Performed By: #### L ACTS #### [facility] [address] [place] [address] Glucose [Mass/Vol] 143 mg/dL High 70-100 [facility] Comment on above: Performed By: #### L ACTS #### [facility] [address] [place] [address] Urea nitrogen [Mass/Vol] 34 mg/dL High 9-20 [facility] Comment on above: Performed By: #### L ACTS #### [facility] [address] [place] [address] Creatinine [Mass/Vol] 1.48 mg/dL High 0.52-1.25 [facility] Comment on above: Performed By: #### L ACTS #### [facility] [address] [place] [address] GFR/1.73 sq M.predicted among blacks MDRD (S/P/Bld) [Vol rate/Area] 42.9 mL/min/{1.73_m2} Abnormal >60 [facility] Comment on above: Performed By: #### L ACTS #### [facility] [address] [place] [address] GFR/1.73 sq M.predicted among non-blacks MDRD (S/P/Bld) [Vol rate/Area] 37.0 mL/min/{1.73_m2} Abnormal >60 [facility] Comment on above: Result Comment: [...] secretion. Performed By: #### L ACTS #### [facility] [address] [place] [address] Potassium [Moles/Vol] 5.2 mmol/L High 3.5-5.1 [facility] Comment on above: Performed By: #### L ACTS #### [facility] [address] [place] [address] Sodium [Moles/Vol] 140 mmol/L Normal 135-145 [facility] Comment on above: Performed By: #### L ACTS #### [facility] [address] [place] [address] Chloride [Moles/Vol] 106 mmol/L Normal 98-107 [facility] Comment on above: Performed By: #### L ACTS #### [facility] [address] [place] [address] Basic Metabolic Panel w/ Ref aidan to MGon 10-09-2021 Anion gap [Moles/Vol] 4 mmol/L 3 - 13 mmol/L [facility] Calcium [Mass/Vol] 9.3 mg/dL 8.4 - 10. 4 mg/dL [facility] Chloride [Moles/Vol] 106 mmol/L 98 - 10 7 mmol/L [facility] CO2 [Moles/Vol] 29 mmol/L 22 - 30 mmol/L [facility] Creatinine [Mass/Vol] 1.48 mg/dL High 0.52 - 1.25 mg/dL [facility] EGFR IF NonAfrican [place]ian 37.0 mL/min Abnormal >60 [facility] GFR/1.73 sq M.predicted among blacks MDRD (S/P/Bld) [Vol rate/Area] 42.9 mL/min/{1.73_m2} Abnormal >60 [facility] Glucose [Mass/Vol] 143 mg/dL High 70 - 100 mg/dL [facility] Interpretation and review of laboratory results Abnormal [facility] Potassium [Moles/Vol] 5.2 mmol/L High 3.5 - 5.1 mmol/L [facility] Sodium [Moles/Vol] 140 mmol/L 135 - 145 mmol/L [facility] Urea nitrogen (BldV) [Mass/Vol] 34 mg/dL High 9 - 20 mg/dL [facility] CBC Auto Differentialon 09-28 Hematocrit (Bld) [Volume fraction] 27.0 % Low 35.0 - 47.0 % [facility] Hemoglobin.gastrointest inal spec 1 Ql (Stl) 8.8 [...] [#/Vol] 10.6 10*3/uL 3.6 - 10.7 10*3/uL [facility] Glucose,Bedside 10-09-2021 Glucose [Mass/Vol] 230 mg/dL High 70-100 [facility] Comment on above: Result Comment: Test performed by glucose meter. Results may be 10%-15% lower than serum/plasma values. (CLIA ID [id number]) Performed By: #### L ACTS #### [facility] [address] [place] [address] Glucose [Mass/Vol] 123 mg/dL High [address] [place] [address] Comment on above: Result Comment: Test performed by glucose meter. Results may be 10%-15% lower than serum/plasma values. (CLIA ID [id number]) Performed By: #### L ACTS #### [facility] [address] [place] [address] Glucose [Mass/Vol] 171 mg/dL High [address] Comment on above: Result Comment: Test performed by glucose meter. Results may be 10%-15% lower than serum/plasma values. (CLIA ID [id number]) Performed By: #### L ACTS #### [facility] [address] [place] [address] Glucose [Mass/Vol] 156 mg/dL High 70-[address] [place] [address] Comment on above: Result Comment: Test performed by glucose meter. Results may be 10%-15% lower than serum/plasma values. (CLIA ID [id number]) Performed By: #### B GLU #### [facility] [address] [place] [address] Hemogram w/ Autodiffon 10-09 Erythrocyte distribution width (RBC) [Ratio] 16.0 % High 11.5-14.5 [facility] Comment on above: Performed By: #### L ACTS #### [facility] [address] [place] [address] Hematocrit (Bld) [Volume fraction] 27.0 % Low 35.0-47.0 [facility] Comment on above: Performed By: #### L ACTS #### [facility] [address] [place] [address] Hemoglobin (Bld) [Mass/Vol] 8.8 g/dL Low 11.7-16.0 [facility] Comment on above: Performed By: #### L ACTS #### [facility] [address] [place] [address] MCH (RBC) [Entitic mass] 27.2 pg Normal 26.0-34.0 [facility] Comment on above: Performed By: #### L ACTS #### [facility] [address] [place] [address] MCHC 32.4 % Normal 32.0-36.0 [facility] Comment on above: Performed By: #### L ACTS #### [facility] [address] [place] [address] MCV (RBC) [Entitic vol] 83.9 fL Normal 79.0-98.0 [facility] Comment on above: Performed By: #### L ACTS #### [facility] [address] [place] [address] Platelet mean volume (Bld) [Entitic vol] 6.5 fL Low 7.4-10.4 [facility] Comment on above: Performed By: #### L ACTS #### [facility] [address] [place] [address] Platelets (Bld) [#/Vol] 335 10*3/uL Normal 140-440 [facility] Comment on above: Performed By: #### L ACTS #### [facility] [address] [place] [address] RBC (Bld) [#/Vol] 3.22 10*6/uL Low 3.80-5.20 [facility] Comment on above: Performed By: #### L ACTS #### [facility] [address] [place] [address] WBC (Bld) [#/Vol] 10.6 10*3/uL Normal 3.6-10.7 [facility] Comment on above: Performed By: #### L ACTS #### [facility] [address] [place] [address] Manual Diffon 10-09-2021 Abs Eosin Cnt 0.3 10*3/uL Normal 0.0-0.5 [facility] Comment on above: Performed By: #### L ACTS #### [facility] [address] [place] [address] Abs Lymph Cnt 2.2 10*3/uL Normal 1.1-4.5 [facility] Comment on above: Performed By: #### L ACTS #### [facility] [address] [place] [address] Abs Monocyte Cnt 0.4 10*3/uL Normal 0.2-1.1 [facility] Comment on above: Performed By: #### L ACTS #### [facility] [address] [place] [address] Abs Neutrophile Cnt 6.9 10*3/uL Normal 2.2-8.2 [facility] Comment on above: Performed By: #### L ACTS #### [facility] [address] [place] [address] Anisocytosis Slight Normal [facility] Comment on above: Performed By: #### L ACTS #### [facility] [address] [place] [address] Bands 3 % Normal 0-3 [facility] Comment on above: Performed By: #### L ACTS #### [facility] [address] [place] [address] Elliptocytes Slight Normal [facility] Comment on above: Performed By: #### L ACTS #### [facility] [address] [place] [address] Eosinophils 3 % Normal 1-6 [facility] Comment on above: Performed By: #### L ACTS #### [facility] [address] [place] [address] Hypochromia Slight Normal [facility] Comment on above: Performed By: #### L ACTS #### [facility] [address] [place] [address] Lymphocytes 21 % Normal 20-40 [facility] Comment on above: Performed By: #### L ACTS #### [facility] [address] [place] [address] Metamyelocytes 4 % Abnormal <1 [facility] Comment on above: Performed By: #### L ACTS #### [facility] [address] [place] [address] Monocytes 4 % Normal 2-10 [facility] Comment on above: Performed By: #### L ACTS #### [facility] [address] [place] [address] Myelocytes 3 % Abnormal <1 [facility] Comment on above: Performed By: #### L ACTS #### [facility] [address] [place] [address] Ovalocytes Slight Normal [facility] Comment on above: Performed By: #### L ACTS #### [facility] [address] [place] [address] Poikilocytosis Slight Normal [facility] Comment on above: Performed By: #### L ACTS #### [facility] [address] [place] [address] Polychromasia Slight Normal [facility] Comment on above: Performed By: #### L ACTS #### [facility] [address] [place] [address] RBC Morphology ABNORMAL Normal [facility] Comment on above: Performed By: #### L ACTS #### [facility] [address] [place] [address] Seg Neutrophils 62 % Normal 40-80 [facility] Comment on above: Performed By: #### L ACTS #### [facility] [address] [place] [address] Abs Baso Cnt 0.0 10*3/uL Normal 0.0-0.[address] [facility] Comment on above: Performed By: #### L ACTS #### [facility] [address] [place] [address] Basophils 0 % Normal 0-2 [facility] Comment on above: Performed By: #### L ACTS #### [facility] [address] [place] [address] Cells counted [address] [facility] Comment on above: Performed By: #### L ACTS #### [facility] [address] [place] [address] Manual Differentialon 2020 Absolute Baso # 0.0 10*3/uL 0.0 - 0.2 10*3/uL [facility] Absolute Eos # 0.3 10*3/uL 0.0 - 0.5 10*3/uL [facility] Absolute Lymph # 2.2 10*3/uL 1.1 - 4.5 10*3/uL [facility] Absolute [place] # 0.4 10*3/uL 0.2 - 1.1 10*3/uL [...] Interpretation and review of laboratory results Abnormal [facility] POCT Glucoseon 10-09-2021 Glucose [Mass/Vol] 228 mg/dL High 70 - 100 mg/dL [facility] Interpretation and review of laboratory results Abnormal [facility] Glucose [Mass/Vol] 230 mg/dL High 70 - 100 mg/dL [facility] Interpretation and review of laboratory results Abnormal [facility] Glucose [Mass/Vol] 123 mg/dL High 70 - 100 mg/dL [facility] Interpretation and review of laboratory results Abnormal [facility] Glucose [Mass/Vol] 171 mg/dL High 70 - 100 mg/dL [facility] Interpretation and review of laboratory results Abnormal [facility] Glucose [Mass/Vol] 156 mg/dL High 70 - 100 mg/dL [facility] Interpretation and review of laboratory results Abnormal [facility] Add On Lab Teston 10-08-2021 Add On Accepted [facility] Add on test from HISon 10-08 Add on test from HIS Accepted Normal [facility] Comment on above: Result Comment: Spec imen available & acceptable for analysis. Performed By: #### L ACTS #### [facility] [address] [place] [address] Basic Metabolic Panelon 09-28 Calcium [Mass/Vol] 8.8 mg/dL Normal 8.4-10.4 [facility] Comment on above: Performed By: #### H EMDF, LIPA4, LACTS, CMP3M #### [facility] [address] [place] [address] Glucose [Mass/Vol] 136 mg/dL High 70-100 [facility] Comment on above: Performed By: #### H EMDF, LIPA4, LACTS, CMP3M #### [facility] [address] [place] [address] Urea nitrogen [Mass/Vol] 35 mg/dL High 9-20 [facility] Comment on above: Performed By: #### H EMDF, LIPA4, LACTS, CMP3M #### [facility] [address] [place] [address] Anion gap [Moles/Vol] 2 mmol/L Low 3-13 [facility] Comment on above: Performed By: #### H EMDF, LIPA4, LACTS, CMP3M #### [facility] [address] [place] [address] CO2 [Moles/Vol] 29 mmol/L Normal 22-30 [facility] Comment on above: Performed By: #### H EMDF, LIPA4, LACTS, CMP3M #### [facility] [address] [place] [address] Creatinine [Mass/Vol] 1.65 mg/dL High 0.52-1.25 [facility] Comment on above: Performed By: #### H EMDF, LIPA4, LACTS, CMP3M #### [facility] [address] [place] [address] GFR/1.73 sq M.predicted among blacks MDRD (S/P/Bld) [Vol rate/Area] 37.6 mL/min/{1.73_m2} Abnormal >60 [facility] [facility] Comment on above: Performed By: #### H EMDF, LIPA4, LACTS, CMP3M #### [facility] [address] [place] [address] GFR/1.73 sq M.predicted among non-blacks MDRD (S/P/Bld) [Vol rate/Area] 32.4 mL/min/{1.73_m2} Abnormal >60 [facility] Comment on above: Result Comment: [...] #### H EMDF, LIPA4, LACTS, CMP3M #### [facility] [address] [place] [address] Potassium [Moles/Vol] 5.0 mmol/L Normal 3.5-5.1 [facility] Comment on above: Performed By: #### H EMDF, LIPA4, LACTS, CMP3M #### [facility] [address] [place] [address] Sodium [Moles/Vol] 135 mmol/L Normal 135-145 [facility] Comment on above: Performed By: #### H EMDF, LIPA4, LACTS, CMP3M #### [facility] [address] [place] [address] Chloride [Moles/Vol] 105 mmol/L Normal 98-107 [facility] Comment on above: Performed By: #### H EMDF, LIPA4, LACTS, CMP3M #### [facility] [address] [place] [address] Basic Metabolic Panel w/ Ref aidan to MGon 10-08-2021 Anion gap [Moles/Vol] 2 mmol/L Low 3 - 13 mmol/L [facility] Calcium [Mass/Vol] 8.8 mg/dL 8.4 - 10. 4 mg/dL [facility] Chloride [Moles/Vol] 105 mmol/L 98 - 10 7 mmol/L [facility] CO2 [Moles/Vol] 29 mmol/L 22 - 30 mmol/L [facility] Creatinine [Mass/Vol] 1.65 mg/dL High 0.52 - 1.25 mg/dL [facility] EGFR IF NonAfrican [place]ian 32.4 mL/min Abnormal >60 [facility] GFR/1.73 sq M.predicted among blacks MDRD (S/P/Bld) [Vol rate/Area] 37.6 mL/min/{1.73_m2} Abnormal >60 [facility] Glucose [Mass/Vol] 136 mg/dL High 70 - 100 mg/dL [facility] Interpretation and review of laboratory results Abnormal [facility] Potassium [Moles/Vol] 5.0 mmol/L 3.5 - 5.1 mmol/L [facility] Sodium [Moles/Vol] 135 mmol/L 135 - 145 mmol/L [facility] Urea nitrogen (BldV) [Mass/Vol] 35 mg/dL High 9 - 20 mg/dL [facility] CBC Auto Differentialon 09-28 Hematocrit (Bld) [Volume fraction] 25.3 % Low 35.0 - 47.0 % [facility] Hemoglobin.gastrointest inal spec 1 Ql (Stl) 8.1 g/dL Low 11.7 - 16.0 g/dL [facility] Interpretation and review of laboratory results [...] 6.6 fL Low 7.4 - 10.4 fL [facility] Platelets (Bld) [#/Vol] 292 10*3/uL 140 - 440 10*3/uL [facility] RBC (Bld) [#/Vol] 3.03 10*6/uL Low 3.80 - 5.2 0 10*6/uL [facility] WBC (Bld) [#/Vol] 9.9 10*3/uL 3.6 - 10.7 10*3/uL [facility] Glucose,Bedsideon 10-08-2021 Glucose [Mass/Vol] 186 mg/dL High 70-100 [facility] Comment on above: Result Comment: Test performed by glucose meter. Results may be 10%-15% lower than serum/plasma values. (CLIA ID [id number]) Performed By: #### L ACTS #### [employer] [address] [place] [address] Glucose [Mass/Vol] 103 mg/dL High 70-100 [facility] Comment on above: Result Comment: Test performed by glucose meter. Results may be 10%-15% lower than serum/plasma values. (CLIA ID [id number]) Performed By: #### L ACTS #### [facility] [address] [place] [address] Glucose [Mass/Vol] 155 mg/dL High 70-100 [facility] Comment on above: Result Comment: Test performed by glucose meter. Results may be 10%-15% lower than serum/plasma values. (CLIA ID [id number]) Performed By: #### L ACTS #### [facility] [address] [place] [address] Glucose [Mass/Vol] 114 mg/dL High 70-100 [facility] Comment on above: Result Comment: Test performed by glucose meter. Results may be 10%-15% lower than serum/plasma values. (CLIA ID [id number]) Performed By: #### B GLU #### [facility] [address] [place] [address] Hemogram w/ Autodiffon 10-08 Erythrocyte distribution width (RBC) [Ratio] 16.0 % High 11.5-14.5 [facility] Comment on above: Performed By: #### H EMDF, LIPA4, LACTS, CMP3M #### [facility] [address] [place] [address] Hematocrit (Bld) [Volume fraction] 25.3 % Low 35.0-47.0 [facility] Comment on above: Performed By: #### H EMDF, LIPA4, LACTS, CMP3M #### [facility] [address] [place] [address] Hemoglobin (Bld) [Mass/Vol] 8.1 g/dL Low 11.7-16.0 [facility] Comment on above: Performed By: #### H EMDF, LIPA4, LACTS, CMP3M #### [facility] [address] [place] [address] MCH (RBC) [Entitic mass] 26.7 pg Normal 26.0-34.0 [facility] Comment on above: Performed By: #### H EMDF, LIPA4, LACTS, CMP3M #### [facility] [address] [place] [address] MCHC 32.0 % Normal 32.0-36.0 [facility] Comment on above: Performed By: #### H EMDF, LIPA4, LACTS, CMP3M #### [facility] [address] [place] [address] MCV (RBC) [Entitic vol] 83.4 fL Normal 79.0-98.0 [facility] Comment on above: Performed By: #### H EMDF, LIPA4, LACTS, CMP3M #### [facility] [address] [place] [address] Platelet mean volume (Bld) [Entitic vol] 6.6 fL Low 7.4-10.4 [facility] Comment on above: Performed By: #### H EMDF, LIPA4, LACTS, CMP3M #### [facility] [address] [place] [address] Platelets (Bld) [#/Vol] 292 10*3/uL Normal 140-440 [facility] Comment on above: Performed By: #### H EMDF, LIPA4, LACTS, CMP3M #### [facility] [address] [place] [address] RBC (Bld) [#/Vol] 3.03 10*6/uL Low 3.80-5.20 [facility] Comment on above: Performed By: #### H EMDF, LIPA4, LACTS, CMP3M #### [facility] [address] [place] [address] WBC (Bld) [#/Vol] 9.9 10*3/uL Normal 3.6-10.7 [facility] Comment on above: Performed By: #### H EMDF, LIPA4, LACTS, CMP3M #### [facility] [address] [place] [address] Manual Diffon 10-08-2021 Abs Baso Cnt 0.0 10*3/uL Normal 0.0-0.2 [facility] Comment on above: Performed By: #### H EMDF, LIPA4, LACTS, CMP3M #### [facility] [address] [place] [address] Abs Eosin Cnt 0.3 10*3/uL Normal 0.0-0.5 [facility] Comment on above: Performed By: #### H EMDF, LIPA4, LACTS, CMP3M #### [facility] [address] [place] [address] Abs Lymph Cnt 1.2 10*3/uL Normal 1.1-4.5 [facility] Comment on above: Performed By: #### H EMDF, LIPA4, LACTS, CMP3M #### [facility] [address] [place] [address] Abs Monocyte Cnt 0.2 10*3/uL Normal 0.2-1.1 [facility] Comment on above: Performed By: #### H EMDF, LIPA4, LACTS, CMP3M #### [facility] [address] [place] [address] Abs Neutrophile Cnt 7.3 10*3/uL Normal 2.2-8.2 [facility] Comment on above: Performed By: #### H EMDF, LIPA4, LACTS, CMP3M #### [facility] [address] [place] [address] Anisocytosis Slight Normal [facility] Comment on above: Performed By: #### H EMDF, LIPA4, LACTS, CMP3M #### [facility] [address] [place] [address] Bands 1 % Normal 0-3 [facility] Comment on above: Performed By: #### H EMDF, LIPA4, LACTS, CMP3M #### [facility] [address] [place] [address] Basophils 0 % Normal 0-2 [facility] Comment on above: Performed By: #### H EMDF, LIPA4, LACTS, CMP3M #### [facility] [address] [place] [address] James Cells Slight Normal [facility] Comment on above: Performed By: #### H EMDF, LIPA4, LACTS, CMP3M #### [facility] [address] [place] [address] Cells counted [address] [facility] Comment on above: Performed By: #### H EMDF, LIPA4, LACTS, CMP3M #### [facility] [address] [place] [address] [facility] Comment on above: Performed By: #### H EMDF, LIPA4, LACTS, CMP3M #### [facility] [address] [place] [address] Eosinophils 3 % Normal 1-6 [facility] Comment on above: Performed By: #### H EMDF, LIPA4, LACTS, CMP3M #### [facility] [address] [place] [address] [facility] Comment on above: Performed By: #### H EMDF, LIPA4, LACTS, CMP3M #### [facility] [address] [place] [address] Lymphocytes 12 % Low 20-40 [facility] Comment on above: Performed By: #### H EMDF, LIPA4, LACTS, CMP3M #### [facility] [address] [place] [address] Metamyelocytes 7 % Abnormal <1 [facility] Comment on above: Performed By: #### H EMDF, LIPA4, LACTS, CMP3M #### [facility] [address] [place] [address] Monocytes 2 % Normal 2-10 [facility] Comment on above: Performed By: #### H EMDF, LIPA4, LACTS, CMP3M #### [facility] [address] [place] [address] Myelocytes 2 % Abnormal <1 [facility] Comment on above: Performed By: #### H EMDF, LIPA4, LACTS, CMP3M #### [facility] [address] [place] [address] [facility] Comment on above: Performed By: #### H EMDF, LIPA4, LACTS, CMP3M #### [facility] [address] [place] [address] Poikilocytosis Slight Normal [facility] Comment on above: Performed By: #### H EMDF, LIPA4, LACTS, CMP3M #### [facility] [address] [place] [address] RBC Morphology ABNORMAL Normal [facility] Comment on above: Performed By: #### H EMDF, LIPA4, LACTS, CMP3M #### [facility] [address] [place] [address] Seg Neutrophils 73 % Normal 40-80 [facility] Comment on above: Performed By: #### H EMDF, LIPA4, LACTS, CMP3M #### [facility] [address] [place] [address] Manual Differentialon 2020 Absolute Baso # 0.0 10*3/uL 0.0 - 0.2 10*3/uL [facility] Absolute Eos # 0.3 10*3/uL 0.0 - 0.5 10*3/uL [facility] Absolute Lymph # 1.2 10*3/uL 1.1 - 4.5 10*3/uL [facility] Absolute [place] # 0.2 10*3/uL 0.2 - 1.1 10*3/uL [facility] Absolute Neut # 7.3 10*3/uL 2.2 - 8.2 10*3/uL [facility] Anisocytosis Slight [facility] Bands 1 % 0 - 3 % [facility] Basophils/100 WBC (Bld) 0 % 0 - 2 % [facility] [place] Cells Slight [facility] Elliptocytes Slight [facility] Eosinophils/100 [...] 80 % [facility] TOTAL CELLS COUNTED 100 [facility] POCT Glucoseon 10-08-2021 Glucose [Mass/Vol] 186 mg/dL High 70 - 100 mg/dL [facility] Interpretation and review of laboratory results Abnormal [facility] Glucose [Mass/Vol] 103 mg/dL High 70 - 100 mg/dL [facility] Work Phone: [phone] Interpretation and review of laboratory results Abnormal [facility] Work Phone: [phone] [facility] Work Phone: [phone] Glucose [Mass/Vol] 155 mg/dL High 70 - 100 mg/dL [facility] Interpretation and review of laboratory results Abnormal [facility] Glucose [Mass/Vol] 114 mg/dL High 70 - 100 mg/dL [facility] Work Phone: [phone] Interpretation and review of laboratory results Abnormal [facility] Work Phone: [phone] [facility] Work Phone: [phone] TSH without Reflexon 021 Interpretation and review of laboratory results Abnormal [facility] TSH Qn 7.319 u[IU]/mL High 0.465 - 4.680 u[IU]/mL [facility] Thyroid Stim. Hormoneon 09-28 Thyroid Stim. Hormone 7.319 u[IU]/mL High 0.465-4.68 0 [facility] Comment on above: Performed By: #### H EMDF, LIPA4, LACTS, CMP3M #### [facility] [address] [place] [address] Basic Metabolic Panelon 09-28 Anion gap [Moles/Vol] 2 mmol/L Low 3-13 [facility] Comment on above: Performed By: #### H EMDF, LIPA4, LACTS, CMP3M #### [facility] [address] [place] [address] Calcium [Mass/Vol] 9.1 mg/dL Normal 8.4-10.4 [facility] Comment on above: Performed By: #### H EMDF, LIPA4, LACTS, CMP3M #### [facility] [address] [place] [address] CO2 [Moles/Vol] 28 mmol/L Normal 22-30 [facility] Comment on above: Performed By: #### H EMDF, LIPA4, LACTS, CMP3M #### [facility] [address] [place] [address] Creatinine [Mass/Vol] 1.84 mg/dL High 0.52-1.25 [facility] Comment on above: Performed By: #### H EMDF, LIPA4, LACTS, CMP3M #### [facility] [address] [place] [address] GFR/1.73 sq M.predicted among blacks MDRD (S/P/Bld) [Vol rate/Area] 33.0 mL/min/{1.73_m2} Abnormal >60 [facility] Comment on above: Performed By: #### H EMDF, LIPA4, LACTS, CMP3M #### [facility] [address] [address] GFR/1.73 sq M.predicted among non-blacks MDRD (S/P/Bld) [Vol rate/Area] 28.4 mL/min/{1.73_m2} Abnormal >60 [facility] Comment on [...] #### H EMDF, LIPA4, LACTS, CMP3M #### [facility] [address] [place] [address] Glucose [Mass/Vol] 80 mg/dL Normal 70-100 [facility] Comment on above: Performed By: #### H EMDF, LIPA4, LACTS, CMP3M #### [facility] [address] [place] [address] Urea nitrogen [Mass/Vol] 37 mg/dL High 9-20 [facility] Comment on above: Performed By: #### H EMDF, LIPA4, LACTS, CMP3M #### [facility] [address] [place] [address] Chloride [Moles/Vol] 107 mmol/L Normal 98-107 [facility] Comment on above: Performed By: #### H EMDF, LIPA4, LACTS, CMP3M #### [facility] [address] [place] [address] Potassium [Moles/Vol] 4.8 mmol/L Normal 3.5-5.1 [facility] Comment on above: Performed By: #### H EMDF, LIPA4, LACTS, CMP3M #### [facility] [address] [place] [address] Sodium [Moles/Vol] 138 mmol/L Normal 135-145 [facility] Comment on above: Performed By: #### H EMDF, LIPA4, LACTS, CMP3M #### [facility] [address] [place] [address] Basic Metabolic Panel w/ Ref aidan to MGon 10-07-2021 Anion gap [Moles/Vol] 2 mmol/L Low 3 - 13 mmol/L [facility] Calcium [Mass/Vol] 9.1 mg/dL 8.4 - 10. 4 mg/dL [facility] Chloride [Moles/Vol] 107 mmol/L 98 - 10 7 mmol/L [facility] CO2 [Moles/Vol] 28 mmol/L 22 - 30 mmol/L [facility] Creatinine [Mass/Vol] 1.84 mg/dL High 0.52 - 1.25 mg/dL [facility] EGFR IF NonAfrican Gambian 28.4 mL/min Abnormal >60 [facility] GFR/1.73 sq M.predicted among blacks MDRD (S/P/Bld) [Vol rate/Area] 33.0 mL/min/{1.73_m2} Abnormal >60 [facility] Glucose [Mass/Vol] 80 mg/dL 70 - 100 mg/dL [facility] Interpretation and review of laboratory results Abnormal [facility] Potassium [Moles/Vol] 4.8 mmol/L 3.5 - 5.1 mmol/L [facility] Sodium [Moles/Vol] 138 mmol/L 135 - 145 mmol/L [facility] Urea nitrogen (BldV) [Mass/Vol] 37 mg/dL High 9 - 20 mg/dL [facility] CBC Auto Differentialon 09-28 Hematocrit (Bld) [Volume [...] CR Chest PA/LAT Patient Name: KIMBERLY PATEL [facility] Manort#: [id number] Diagnostic Radiology ACCESSION EXAM DATE/TIME PROCEDURE ORDERING PROVIDER [id number] 10/07/2021 15:27 EST CR Chest PA and LAT 58SANIYA RENDON CPT code 98302 Reason For Exam (CR Chest PA and [...] Transcribed Date and Time: 10/07/2021 3:33 Normal [facility] CULTURE BLOOD (Two)on 2020 Microscopic examination of blood, culture CULTURE BLOOD (Two) --> Status: F No growth at 5 days. Normal [facility] Comment on above: Performed By: #### L ACTS #### [facility] [address] [place] [address] Chloride, Random Urineon Chloride 58 mmol/L 19 - 209 mmol/L [facility] Work Phone: Chloride, Ur Randomon 2020 Chloride [Moles/Vol] 58 mmol/L Normal 19-209 [facility] Comment on above: Performed By: #### L ACTS #### [facility] [address] [place] [address] Creatinine, Random Urineon 1 12-08-2020 Creatinine (U) [Mass/Vol] 91.1 mg/dL No Range [facility] Work Phone: Creatinine, Ur Randomon 12- Creatinine, Ur Random 91.1 mg/dL Normal No Range [facility] Comment on above: Performed By: #### L ACTS #### [facility] [address] [place] [address] Culture, Blood 2on Blood Culture, Routine No growth at 5 days. [facility] Work Phone: [facility] Work Phone: Glucose,Bedsideon 10-07-2021 Glucose [Mass/Vol] 194 mg/dL High 70-100 [facility] Comment on above: Result Comment: Test performed by glucose meter. Results may be 10%-15% lower than serum/plasma values. (CLIA ID [id number]) Performed By: #### H EMDF, LIPA4, LACTS, CMP3M #### [employer] [facility] [address] [place] [address] Glucose [Mass/Vol] 132 mg/dL High 70-100 [facility] Comment on above: Result Comment: Test performed by glucose meter. Results may be 10%-15% lower than serum/plasma values. (CLIA ID [id number]) Performed By: #### H EMDF, LIPA4, LACTS, CMP3M #### [facility] [address] [place] [address] Glucose [Mass/Vol] 79 mg/dL Normal 70-100 [facility] Comment on above: Result Comment: Test performed by glucose meter. Results may be 10%-15% lower than serum/plasma values. (CLIA ID [id number]) Performed By: #### L ACTS #### [facility] [employer] [facility] [address] [place] [address] Glucose [Mass/Vol] 112 mg/dL High 70-100 [facility] Comment on above: Result Comment: Test performed by glucose meter. Results may be 10%-15% lower than serum/plasma values. (CLIA ID [id number]) Performed By: #### H EMDF, LIPA4, LACTS, CMP3M #### [employer] [facility] [address] [place] [address] Hemogram w/ Autodiffon 10-07 Platelets (Bld) [#/Vol] 236 10*3/uL Normal 140-440 [facility] Comment on above: Result Comment: Occa sional fibrin strands noted on smear, no clot detected in tube, may affect platelet count, suggest repeat draw. Performed By: #### H EMDF, LIPA4, LACTS, CMP3M #### [employer] [facility] [address] [place] [address] Erythrocyte distribution width (RBC) [Ratio] 15.9 % High 11.5-14.5 [facility] Comment on above: Performed By: #### H EMDF, LIPA4, LACTS, CMP3M #### [employer] [facility] [address] [place] [address] Hematocrit (Bld) [Volume fraction] 25.6 % Low 35.0-47.0 [facility] Comment on above: Performed By: #### H EMDF, LIPA4, LACTS, CMP3M #### [facility] [address] [place] [address] Hemoglobin (Bld) [Mass/Vol] 8.2 g/dL Low 11.7-16.0 [facility] Comment on above: Performed By: #### H EMDF, LIPA4, LACTS, CMP3M #### [facility] [address] [place] [address] MCH (RBC) [Entitic mass] 27.1 pg Normal 26.0-34.0 [facility] Comment on above: Performed By: #### H EMDF, LIPA4, LACTS, CMP3M #### [facility] [address] [place] [address] MCHC 32.2 % Normal 32.0-36.0 [facility] Comment on above: Performed By: #### H EMDF, LIPA4, LACTS, CMP3M #### [facility] [address] [place] [address] MCV (RBC) [Entitic vol] 84.3 fL Normal 79.0-98.0 [facility] Comment on above: Performed By: #### H EMDF, LIPA4, LACTS, CMP3M #### [facility] [address] [place] [address] Platelet mean volume (Bld) [Entitic vol] 7.0 fL Low 7.4-10.4 [facility] Comment on above: Performed By: #### H EMDF, LIPA4, LACTS, CMP3M #### [facility] [address] [place] [address] RBC (Bld) [#/Vol] 3.04 10*6/uL Low 3.80-5.20 [facility] Comment on above: Performed By: #### H EMDF, LIPA4, LACTS, CMP3M #### [facility] [address] [place] [address] WBC (Bld) [#/Vol] 12.1 10*3/uL High 3.6-10.7 [facility] Comment on above: Performed By: #### H EMDF, LIPA4, LACTS, CMP3M #### [facility] [address] [place] [address] Manual Diffon 10-07-2021 Abs Baso Cnt 0.1 10*3/uL Normal 0.0-0.[address] [facility] Comment on above: Performed By: #### H EMDF, LIPA4, LACTS, CMP3M #### [facility] [address] [place] [address] Abs Eosin Cnt 0.1 10*3/uL Normal 0.0-0.5 [facility] Comment on above: Performed By: #### H EMDF, LIPA4, LACTS, CMP3M #### [place] [address] [place] [address] Abs Lymph Cnt 1.6 10*3/uL Normal 1.1-4.5 [facility] Comment on above: Performed By: #### H EMDF, LIPA4, LACTS, CMP3M #### [facility] [address] [place] [address] Abs Monocyte Cnt 0.5 10*3/uL Normal 0.2-1.1 [facility] Comment on above: Performed By: #### H EMDF, LIPA4, LACTS, CMP3M #### [facility] [address] [place] [address] Abs Neutrophile Cnt 8.7 10*3/uL High 2.2-8.2 [facility] Comment on above: Performed By: #### H EMDF, LIPA4, LACTS, CMP3M #### [facility] [address] [place] [address] Anisocytosis Slight Normal [facility] Comment on above: Performed By: #### H EMDF, LIPA4, LACTS, CMP3M #### [facility] [address] [place] [address] Bands 1 % Normal 0-3 [facility] Comment on above: Performed By: #### H EMDF, LIPA4, LACTS, CMP3M #### [facility] [address] [place] [address] Basophils 1 % Normal 0-2 [facility] Comment on above: Performed By: #### H EMDF, LIPA4, LACTS, CMP3M #### [facility] [address] [place] [address] [place] Cells Slight Normal [facility] Comment on above: Performed By: #### H EMDF, LIPA4, LACTS, CMP3M #### [facility] [address] [place] [address] Elliptocytes Slight Normal [facility] Comment on above: Performed By: #### H EMDF, LIPA4, LACTS, CMP3M #### [facility] [address] [place] [address] Eosinophils 1 % Normal 1-6 [facility] Comment on above: Performed By: #### H EMDF, LIPA4, LACTS, CMP3M #### [facility] [address] [place] [address] Hypochromia Slight Normal [facility] Comment on above: Performed By: #### H EMDF, LIPA4, LACTS, CMP3M #### [facility] [address] [place] [address] Lymphocytes 13 % Low 20-40 [facility] Comment on above: Performed By: #### H EMDF, LIPA4, LACTS, CMP3M #### [facility] [address] [place] [address] Metamyelocytes 5 % Abnormal <1 [facility] Comment on above: Performed By: #### H EMDF, LIPA4, LACTS, CMP3M #### [facility] [address] [place] [address] Monocytes 4 % Normal 2-10 [facility] Comment on above: Performed By: #### H EMDF, LIPA4, LACTS, CMP3M #### [facility] [address] [place] [address] Myelocytes 4 % Abnormal <1 [facility] Comment on above: Performed By: #### H EMDF, LIPA4, LACTS, CMP3M #### [facility] [address] [place] [address] [facility] Comment on above: Performed By: #### H EMDF, LIPA4, LACTS, CMP3M #### [facility] [address] [place] [address] Poikilocytosis Slight Normal [facility] Comment on above: Performed By: #### H EMDF, LIPA4, LACTS, CMP3M #### [facility] [address] [place] [address] Polychromasia Slight Normal [facility] Comment on above: Performed By: #### H EMDF, LIPA4, LACTS, CMP3M #### [facility] [address] [place] [address] RBC Morphology ABNORMAL Normal [facility] Comment on above: Performed By: #### H EMDF, LIPA4, LACTS, CMP3M #### [facility] [address] [place] [address] Seg Neutrophils 71 % Normal 40-80 [facility] Comment on above: Performed By: #### H EMDF, LIPA4, LACTS, CMP3M #### [facility] [address] [place] [address] Cells counted 100 Normal [facility] Comment on above: Performed By: #### H EMDF, LIPA4, LACTS, CMP3M #### [facility] [address] [place] [address] Manual Differentialon 2020 Absolute Baso # 0.1 10*3/uL 0.0 - 0.2 10*3/uL [facility] Absolute Eos # 0.1 10*3/uL 0.0 - 0.5 10*3/uL [facility] Absolute Lymph # 1.6 10*3/uL 1.1 - 4.5 10*3/uL [facility] Absolute [place] # 0.5 10*3/uL 0.2 - 1.1 10*3/uL [facility] Absolute Neut # 8.7 10*3/uL High 2.2 - 8.2 10*3/uL [facility] Anisocytosis Slight [facility] Bands 1 % 0 - 3 % [facility] Basophils/100 WBC (Bld) 1 % 0 - 2 % S [facility] [place] Cells Slight [facility] Elliptocytes Slight [facility] Eosinophils/100 [...] [facility] TOTAL CELLS COUNTED 100 [facility] Micro[facility]in / Creatinine Ur ine Ratioon 10-07-2021 Albumin/Creatinine DL <= 20 mg/L (24H U) [Mass ratio] 41.1 mg/L High 0.0 - 29.9 mg/L [facility] Albumin/Creatinine DL <= 20 mg/L (U) [Ratio] 44 mg/g High 0.0 - 29.9 mg/g [facility] Creatinine (U) [Mass/Vol] 93.5 mg/dL No Range [facility] Interpretation and review of laboratory results Abnormal [facility] Microalbumin/Creat Ratioon 1 12-08-2020 Microalb/Creat Ratio 44.0 mg/g High 0.0-29.9 [facility] Comment on above: Performed By: #### H EMDF, LIPA4, LACTS, CMP3M #### [facility] [address] [place] [address] Microalbumin, Ur 41.1 mg/L High 0.0-29.[address] [facility] Comment on above: Result Comment: Micr oalbumin concentrations <30 are considered normal, 30-300 are considered microalbuminuria (or risk of diabetic nephropathy), and >300 are considered clinical albuminuria (clinical nephropathy). Diabetes Care,27, Supplement 1, G35-05, 2004 Performed By: #### H EMDF, LIPA4, LACTS, CMP3M #### [facility] [address] [place] [address] Creatinine, Ur Random 93.5 mg/dL Normal No Range [facility] Comment on above: Performed By: #### H EMDF, LIPA4, LACTS, CMP3M #### [facility] [address] [place] [address] NM Lung Scan Perfusion Parti culateon 10-07-2021 [facility] Work Phone: [phone] [facility] Work Phone: [phone] [facility] Work Phone: [phone] Pulmonary Perfusion Imagi ngon 10-07-2021 [place] Pulmonary Perfusion Imaging Patient Name: KIMBERLY PATEL Nuclear Medicine ACCESSION EXAM DATE/TIME PROCEDURE ORDERING PROVIDER [id number] 10/07/2021 15:47 EST [place] Pulmonary Perfusion 5813 -SANIYA OSHEA Imaging CPT code 36651 Reason For Exam (NM Pulmonary Perfusion Imaging) [...] Transcribed Date and Time: 10/07/2021 4:42 Normal [facility] No Panel Informationon 10-07 [facility] Interpretation and review of laboratory results Abnormal [facility] No Panel InformationOrdered By: Aj Giron on 10-07-2021 [facility] Osmolality, Urineon 10-07-20 21 Osmolality, Ur 490 mosm/kg 300 - 1000 mosm/kg [facility] Work Phone: [phone] [facility] Work Phone: Osmolality,Urineon 1 Osmolality,Urine 490 mosm/kg Normal 300-1000 [facility] Comment on above: Performed By: #### L ACTS #### [facility] [address] [place] [address] POCT Glucoseon 10-07-2021 Glucose [Mass/Vol] 194 mg/dL High 70 - 100 mg/dL [facility] Interpretation and review of laboratory results Abnormal [facility] Glucose [Mass/Vol] 132 mg/dL High 70 - 100 mg/dL [facility] Work Phone: [phone] Interpretation and review of laboratory results Abnormal [facility] Work Phone: [phone] [facility] Work Phone: [phone] Glucose [Mass/Vol] 79 mg/dL 70 - 100 mg/dL [facility] Work Phone: [phone] [facility] Work Phone: [phone] Glucose [Mass/Vol] 112 mg/dL High 70 - 100 mg/dL [facility] Interpretation and review of laboratory results Abnormal [facility] Protein, Ur Randomon 021 Protein, Ur Random 34 mg/dL High No Range [facility] Comment on above: Performed By: #### L ACTS #### [facility] [address] [place] [address] Protein, urine, randomon Interpretation and review of laboratory results Abnormal [facility] Work Phone: [phone] Protein (U) [Mass/Vol] 34 mg/dL High No Range [facility] Work Phone: [phone] Sodium, Ur Randomon 10-07-20 21 Sodium [Moles/Vol] 53 mmol/L Normal 30-90 [facility] Comment on above: Performed By: #### L ACTS #### [facility] [address] [place] [address] Sodium, Urine, RandomOrdered By: Aj Giron on 10-07-2021 Sodium (U) [Moles/Vol] 53 mmol/L 30 - 90 mmol/L [facility] XR CHEST (2 VW)on 10-07-2021 KEVINAdenike [facility] RAD [facility] Work Phone: Radiology Study observation (narrative) [facility] Work Phone: XR CHEST (2 VW)Ordered By: Liliana Domínguez on 10-07-2021 [facility] Work Phone: Basic Metabolic Panelon 12-0 Anion gap [Moles/Vol] 4 mmol/L Normal 3-13 [facility] Comment on above: Performed By: #### H EMDF, LIPA4, LACTS, CMP3M #### [facility] [address] [place] [address] Calcium [Mass/Vol] 8.5 mg/dL Normal 8.4-10.4 [facility] Comment on above: Performed By: #### H EMDF, LIPA4, LACTS, CMP3M #### [facility] [address] [place] [address] CO2 [Moles/Vol] 26 mmol/L Normal 22-30 [facility] Comment on above: Performed By: #### H EMDF, LIPA4, LACTS, CMP3M #### [facility] [address] [place] [address] Glucose [Mass/Vol] 131 mg/dL High 70-100 [facility] Comment on above: Performed By: #### H EMDF, LIPA4, LACTS, CMP3M #### [facility] [address] [place] [address] Urea nitrogen [Mass/Vol] 47 mg/dL High 9-20 [facility] Comment on above: Performed By: #### H EMDF, LIPA4, LACTS, CMP3M #### [facility] [address] [place] [address] Creatinine [Mass/Vol] 2.11 mg/dL High 0.52-1.25 [facility] Comment on above: Performed By: #### H EMDF, LIPA4, LACTS, CMP3M #### [facility] [address] [place] [address] GFR/1.73 sq M.predicted among blacks MDRD (S/P/Bld) [Vol rate/Area] 27.9 mL/min/{1.73_m2} Abnormal >60 [facility] Comment on above: Performed By: #### H EMDF, LIPA4, LACTS, CMP3M #### [facility] [address] [place] [address] GFR/1.73 sq M.predicted among non-blacks MDRD (S/P/Bld) [Vol rate/Area] 24.1 mL/min/{1.73_m2} Abnormal >60 [facility] Comment on above: Result Comment: [...] #### H EMDF, LIPA4, LACTS, CMP3M #### [facility] [address] [place] [address] Potassium [Moles/Vol] 5.1 mmol/L Normal 3.5-5.1 [facility] Comment on above: Performed By: #### H EMDF, LIPA4, LACTS, CMP3M #### [facility] [address] [place] [address] Chloride [Moles/Vol] 108 mmol/L High 98-107 [facility] Comment on above: Performed By: #### H EMDF, LIPA4, LACTS, CMP3M #### [facility] [address] [place] [address] Sodium [Moles/Vol] 138 mmol/L Normal 135-145 [facility] Comment on above: Performed By: #### H EMDF, LIPA4, LACTS, CMP3M #### [facility] [address] [place] [address] Basic Metabolic Panel w/ Ref aidan to MGon 10-06-2021 Anion gap [Moles/Vol] 4 mmol/L 3 - 13 mmol/L [facility] Calcium [Mass/Vol] 8.5 mg/dL 8.4 - 10. 4 mg/dL [facility] Chloride [Moles/Vol] 108 mmol/L High 98 - 10 7 mmol/L [facility] CO2 [Moles/Vol] 26 mmol/L 22 - 30 mmol/L [facility] Creatinine [Mass/Vol] 2.11 mg/dL High 0.52 - 1.25 mg/dL [facility] EGFR IF NonAfrican Gambian 24.1 mL/min Abnormal >60 [facility] GFR/1.73 sq M.predicted among blacks MDRD (S/P/Bld) [Vol rate/Area] 27.9 mL/min/{1.73_m2} Abnormal >60 [facility] Glucose [Mass/Vol] 131 mg/dL High 70 - 100 mg/dL [facility] Interpretation and review of laboratory results Abnormal [facility] Potassium [Moles/Vol] 5.1 mmol/L 3.5 - 5.1 mmol/L [facility] Sodium [Moles/Vol] 138 mmol/L 135 - 145 mmol/L [facility] Urea nitrogen (BldV) [Mass/Vol] 47 mg/dL High 9 - 20 mg/dL [facility] CBC Auto Differentialon Hematocrit (Bld) [Volume fraction] 25.4 % Low 35.0 - 47.0 % [facility] Hemoglobin.gastrointest inal spec 1 Ql (Stl) 8.1 g/dL Low 11.7 - 16.0 g/dL [facility] Interpretation and review of laboratory results Abnormal [...] [#/Vol] 8.8 10*3/uL 3.6 - 10.7 10*3/uL [facility] D-Dimer, Innovanceon 021 D-Dimer, Innovance 1.41 mg/L High <0.19-0.50 [facility] Comment on above: Result Comment: Inno garcia D-Dimer values of <0.50 mg/L FEU can be used in combination with a pre-test probability model (e.g. Well's) to exclude pulmonary embolism (PE) disease, as well as an aid in the diagnosis of deep vein thrombosis (DVT). Performed By: #### H EMDF, LIPA4, LACTS, CMP3M #### [facility] [address] [place] [address] D-Dimer, QuantitativeOrdered By: Teetee Oshea on 10-06-2021 D-Dimer, Quant 1.41 mg/L High <0.19 - 0.50 [facility] Interpretation and review of laboratory results Abnormal [facility] D-Dimer, Quantitativeon 12-0 [facility] Glucose,Bedsideon 10-06-2021 Glucose [Mass/Vol] 149 mg/dL High 70-100 [facility] [employer] [facility] Comment on above: Result Comment: Test performed by glucose meter. Results may be 10%-15% lower than serum/plasma values. (CLIA ID [id number]) Performed By: #### B GLU #### [facility] [facility] [address] [place] [address] Glucose [Mass/Vol] 123 mg/dL High 70-100 [facility] Comment on above: Result Comment: Test performed by glucose meter. Results may be 10%-15% lower than serum/plasma values. (CLIA ID [id number]) Performed By: #### L ACTS #### [facility] [address] [place] [address] Glucose [Mass/Vol] 89 mg/dL Normal 70-100 [facility] Comment on above: Result Comment: Test performed by glucose meter. Results may be 10%-15% lower than serum/plasma values. (CLIA ID [id number]) Performed By: #### L ACTS #### [facility] [address] [place] [address] Glucose [Mass/Vol] 100 mg/dL Normal 70-100 [facility] Comment on above: Result Comment: Test performed by glucose meter. Results may be 10%-15% lower than serum/plasma values. (CLIA ID [id number]) Performed By: #### H EMDF, LIPA4, LACTS, CMP3M #### [facility] [address] [place] [address] Hemogram w/ Autodiffon 10-06 Erythrocyte distribution width (RBC) [Ratio] 16.1 % High 11.5-14.5 [facility] Comment on above: Performed By: #### H EMDF, LIPA4, LACTS, CMP3M #### [facility] [address] [place] [address] Hematocrit (Bld) [Volume fraction] 25.4 % Low 35.0-47.0 [facility] Comment on above: Performed By: #### H EMDF, LIPA4, LACTS, CMP3M #### [facility] [address] [place] [address] Hemoglobin (Bld) [Mass/Vol] 8.1 g/dL Low 11.7-16.0 [facility] Comment on above: Performed By: #### H EMDF, LIPA4, LACTS, CMP3M #### [facility] [address] [place] [address] MCH (RBC) [Entitic mass] 27.1 pg Normal 26.0-34.0 [facility] Comment on above: Performed By: #### H EMDF, LIPA4, LACTS, CMP3M #### [facility] [address] [place] [address] MCHC 32.0 % Normal 32.0-36.0 [facility] Comment on above: Performed By: #### H EMDF, LIPA4, LACTS, CMP3M #### [facility] [address] [place] [address] MCV (RBC) [Entitic vol] 84.7 fL Normal 79.0-98.0 [facility] Comment on above: Performed By: #### H EMDF, LIPA4, LACTS, CMP3M #### [facility] [address] [place] [address] Platelet mean volume (Bld) [Entitic vol] 6.7 fL Low 7.4-10.4 [facility] Comment on above: Performed By: #### H EMDF, LIPA4, LACTS, CMP3M #### [facility] [address] [place] [address] Platelets (Bld) [#/Vol] 187 10*3/uL Normal 140-440 [facility] Comment on above: Performed By: #### H EMDF, LIPA4, LACTS, CMP3M #### [facility] [address] [place] [address] RBC (Bld) [#/Vol] 3.00 10*6/uL Low 3.80-5.20 [facility] Comment on above: Performed By: #### H EMDF, LIPA4, LACTS, CMP3M #### [facility] [address] [place] [address] WBC (Bld) [#/Vol] 8.8 10*3/uL Normal 3.6-10.7 [facility] Comment on above: Performed By: #### H EMDF, LIPA4, LACTS, CMP3M #### [facility] [address] [place] [address] Manual Diffon 10-06-2021 Abs Eosin Cnt 0.1 10*3/uL Normal 0.0-0.5 [facility] Comment on above: Performed By: #### H EMDF, LIPA4, LACTS, CMP3M #### [facility] [address] [place] [address] Abs Lymph Cnt 0.8 10*3/uL Low 1.1-4.5 [facility] Comment on above: Performed By: #### H EMDF, LIPA4, LACTS, CMP3M #### [facility] [address] [place] [address] Abs Monocyte Cnt 0.3 10*3/uL Normal 0.2-1.1 [facility] Comment on above: Performed By: #### H EMDF, LIPA4, LACTS, CMP3M #### [facility] [address] [place] [address] Abs Neutrophile Cnt 7.3 10*3/uL Normal 2.2-8.2 [facility] Comment on above: Performed By: #### H EMDF, LIPA4, LACTS, CMP3M #### [facility] [address] [place] [address] Anisocytosis Slight Normal [facility] Comment on above: Performed By: #### H EMDF, LIPA4, LACTS, CMP3M #### [facility] [address] [place] [address] James Cells Slight Normal [facility] Comment on above: Performed By: #### H EMDF, LIPA4, LACTS, CMP3M #### [facility] [address] [place] [address] Elliptocytes Slight Normal [facility] Comment on above: Performed By: #### H EMDF, LIPA4, LACTS, CMP3M #### [facility] [address] [place] [address] Eosinophils 1 % Normal 1-6 [facility] Comment on above: Performed By: #### H EMDF, LIPA4, LACTS, CMP3M #### [facility] [address] [place] [address] Lymphocytes 9 % Low 20-40 [facility] Comment on above: Performed By: #### H EMDF, LIPA4, LACTS, CMP3M #### [facility] [address] [place] [address] Metamyelocytes 3 % Abnormal <1 [facility] Comment on above: Performed By: #### H EMDF, LIPA4, LACTS, CMP3M #### [facility] [address] [place] [address] Monocytes 3 % Normal 2-10 [facility] Comment on above: Performed By: #### H EMDF, LIPA4, LACTS, CMP3M #### [facility] [address] [place] [address] Myelocytes 1 % Abnormal <1 [facility] Comment on above: Performed By: #### H EMDF, LIPA4, LACTS, CMP3M #### [facility] [address] [place] [address] Ovalocytes Slight Normal [facility] Comment on above: Performed By: #### H EMDF, LIPA4, LACTS, CMP3M #### [facility] [address] [place] [address] Poikilocytosis Slight Normal [facility] Comment on above: Performed By: #### H EMDF, LIPA4, LACTS, CMP3M #### [facility] [address] [place] [address] RBC Morphology ABNORMAL Normal [facility] Comment on above: Performed By: #### H EMDF, LIPA4, LACTS, CMP3M #### [facility] [address] [place] [address] Seg Neutrophils 83 % High 40-80 [facility] Comment on above: Performed By: #### H EMDF, LIPA4, LACTS, CMP3M #### [facility] [address] [place] [address] Abs Baso Cnt 0.0 10*3/uL Normal 0.0-0.[address] [facility] Comment on above: Performed By: #### H EMDF, LIPA4, LACTS, CMP3M #### [facility] [address] [place] [address] Bands 0 % Normal 0-3 [facility] Comment on above: Performed By: #### H EMDF, LIPA4, LACTS, CMP3M #### [facility] [address] [place] [address] Basophils 0 % Normal 0-2 [facility] Comment on above: Performed By: #### H EMDF, LIPA4, LACTS, CMP3M #### [facility] [address] [place] [address] Cells counted 100 Normal [facility] Comment on above: Performed By: #### H EMDF, LIPA4, LACTS, CMP3M #### [facility] [address] [place] [address] Manual Differentialon 2020 Absolute Baso # 0.0 10*3/uL 0.0 - 0.2 10*3/uL [facility] Absolute Eos # 0.1 10*3/uL 0.0 - 0.5 10*3/uL [facility] Absolute Lymph # 0.8 10*3/uL Low 1.1 - 4.5 10*3/uL [facility] Absolute [place] # 0.3 10*3/uL 0.2 - 1.1 10*3/uL [...] 80 % [facility] TOTAL CELLS COUNTED 100 [facility] NM Lung Scan Perfusion Parti culateon 10-06-2021 Radiology Study observation (narrative) [facility] Work Phone: POCT Glucoseon 10-06-2021 Glucose [Mass/Vol] 149 mg/dL High 70 - 100 mg/dL [facility] Interpretation and review of laboratory results Abnormal [facility] Glucose [Mass/Vol] 123 mg/dL High 70 - 100 mg/dL [facility] Work Phone: [phone] Interpretation and review of laboratory results Abnormal [facility] Work Phone: [phone] [facility] Work Phone: [phone] Glucose [Mass/Vol] 89 mg/dL 70 - 100 mg/dL [facility] Work Phone: [phone] [facility] Work Phone: [phone] Glucose [Mass/Vol] 100 mg/dL 70 - 100 mg/dL [facility] Work Phone: [phone] [facility] Work Phone: [phone] PROCALCITONINon 10-06-2021 Interpretation See Below [facility] Interpretation and review of laboratory results Abnormal [facility] Procalcitonin 9.92 ng/mL High 0.00 - 0.09 ng/mL [facility] Procalcitoninon 10-06-2021 Procalcitonin 9.92 ng/mL High 0.00-0.[address] [facility] Comment on above: Performed By: #### H EMDF, LIPA4, LACTS, CMP3M #### [facility] [address] [place] [address] VL LOWER EXTREMITY BILATERAL VENOUS DUPLEXon 10-06-2021 [facility] SB CARDIOLOGY [facility] Work Phone: Radiology Study observation (narrative) [facility] Work Phone: VL LOWER EXTREMITY BILATERAL VENOUS DUPLEXOrdered By: Jose Turcios on 10-06-2021 [facility] Work Phone: VL Venous Duplex US Lower Ex t Bilateralon 10-06-2021 VL Venous Duplex US Lower Ext Bilateral Patient Name: KIMBERLY PATEL Ultrasound ACCESSION EXAM DATE/TIME PROCEDURE ORDERING PROVIDER [id number] 10/06/2021 13:01 EST VL Venous Duplex US SANIYA CHARLES Lower Ext Bilateral CPT code 65747 Reason For Exam (VL Venous Duplex US Lower Ext Bilateral) elevated d. dimer, LE swelling Report [facility] -- Lower Extremity Venous Duplex Report Patient Jorge, : 1955 Study 10/06/2021 Name: Kimberly (66yrs) Date: Age: 66 Account: [id number] Gender: F Loc: 243 BP: Ordering Physician: Saniya Oshea Social Services Assistant: Nuno Bullock RVT Interpreting Physician: Jose Turcios M.D. -- Location: [facility] -- Indications: Elevated d-dimer lower extremity [...] supine position. Images were obtained using a 140 Proof E9 vascular ultrasound machine. The study was [...] + +augmen (more content not included)... Normal [facility] Basic Metabolic Panelon 12-0 Calcium [Mass/Vol] 8.5 mg/dL Normal 8.4-10.4 [facility] Comment on above: Performed By: #### B GLU #### [facility] [address] [place] [address] Anion gap [Moles/Vol] 5 mmol/L Normal 3-13 [facility] Comment on above: Performed By: #### B GLU #### [facility] [address] [place] [address] CO2 [Moles/Vol] 25 mmol/L Normal 22-30 [facility] Comment on above: Performed By: #### B GLU #### [facility] [address] [place] [address] Creatinine [Mass/Vol] 2.40 mg/dL High 0.52-1.25 [facility] Comment on above: Performed By: #### B GLU #### [facility] [address] [place] [address] GFR/1.73 sq M.predicted among blacks MDRD (S/P/Bld) [Vol rate/Area] 23.9 mL/min/{1.73_m2} Abnormal >60 [facility] Comment on above: Performed By: #### B GLU #### [facility] [address] [place] [address] GFR/1.73 sq M.predicted among non-blacks MDRD (S/P/Bld) [Vol rate/Area] 20.6 mL/min/{1.73_m2} Abnormal >60 [facility] Comment on above: Result Comment: [...] secretion. Performed By: #### B GLU #### [facility] [address] [place] [address] Glucose [Mass/Vol] 182 mg/dL High 70-100 [facility] Comment on above: Performed By: #### B GLU #### [facility] [address] [place] [address] Urea nitrogen [Mass/Vol] 55 mg/dL High 9-20 [facility] Comment on above: Performed By: #### B GLU #### [facility] [address] [place] [address] Chloride [Moles/Vol] 108 mmol/L High 98-107 [facility] Comment on above: Performed By: #### B GLU #### [facility] [address] [place] [address] Potassium [Moles/Vol] 5.3 mmol/L High 3.5-5.1 [facility] Comment on above: Performed By: #### B GLU #### [facility] [address] [place] [address] Sodium [Moles/Vol] 139 mmol/L Normal 135-145 [facility] Comment on above: Performed By: #### B GLU #### [facility] [address] [place] [address] Basic Metabolic Panel w/ Ref aidan to MGon 10-05-2021 Anion gap [Moles/Vol] 5 mmol/L 3 - 13 mmol/L [facility] Calcium [Mass/Vol] 8.5 mg/dL 8.4 - 10. 4 mg/dL [facility] Chloride [Moles/Vol] 108 mmol/L High 98 - 10 7 mmol/L [facility] CO2 [Moles/Vol] 25 mmol/L 22 - 30 mmol/L [facility] Creatinine [Mass/Vol] 2.4 mg/dL High 0.52 - 1.25 mg/dL [facility] EGFR IF NonAfrican Gambian 20.6 mL/min Abnormal >60 [facility] GFR/1.73 sq M.predicted among blacks MDRD (S/P/Bld) [Vol rate/Area] 23.9 mL/min/{1.73_m2} Abnormal >60 [facility] Glucose [Mass/Vol] 182 mg/dL High 70 - 100 mg/dL [facility] Interpretation and review of laboratory results Abnormal [facility] Potassium [Moles/Vol] 5.3 mmol/L High 3.5 - 5.1 mmol/L [facility] Sodium [Moles/Vol] 139 mmol/L 135 - 145 mmol/L [facility] Urea nitrogen (BldV) [Mass/Vol] 55 mg/dL High 9 - 20 mg/dL [facility] CBC Auto Differentialon Absolute Baso # 0.0 10*3/uL 0.0 - [...] [#/Vol] 10.3 10*3/uL 3.6 - 10.7 10*3/uL [facility] Glucose,Bedsideon 10-05-2021 Glucose [Mass/Vol] 168 mg/dL High 70-100 [facility] Comment on above: Result Comment: Test performed by glucose meter. Results may be 10%-15% lower than serum/plasma values. (CLIA ID [id number]) Performed By: #### B GLU #### [facility] [address] [place] [address] Glucose [Mass/Vol] 115 mg/dL High 70-100 [facility] Comment on above: Result Comment: Test performed by glucose meter. Results may be 10%-15% lower than serum/plasma values. (CLIA ID [id number]) Performed By: #### H EMDF, LIPA4, LACTS, CMP3M #### [facility] [address] [place] [address] Glucose [Mass/Vol] 187 mg/dL High 70-100 [facility] Comment on above: Result Comment: Test performed by glucose meter. Results may be 10%-15% lower than serum/plasma values. (CLIA ID [id number]) Performed By: #### C MP3M, HEMDF, MDIFF #### [place] [address] [place] [address] #### PCAL #### [address] Glucose [Mass/Vol] 127 mg/dL High 70-100 [facility] Comment on above: Result Comment: Test performed by glucose meter. Results may be 10%-15% lower than serum/plasma values. (CLIA ID [id number]) Performed By: #### C MP3M, HEMDF, MDIFF #### [facility] [address] [place] [address] #### PCAL #### [address] Hemogram w/ Autodiffon 10-05 Abs Baso Cnt 0.0 10*3/uL Normal 0.0-0.2 [facility] Comment on above: Performed By: #### B GLU #### [facility] [address] [place] [address] Abs Neutrophile Cnt 8.2 10*3/uL High 1.8-7.0 [facility] Comment on above: Performed By: #### B GLU #### [facility] [address] [place] [address] Basophils/100 WBC (Bld) 0.3 % Normal 0.0-2.0 [facility] Comment on above: Performed By: #### B GLU #### [facility] [address] [place] [address] Eosinophils (Bld) [#/Vol] 0.2 10*3/uL Normal 0.0-0.5 [facility] Comment on above: Performed By: #### B GLU #### [facility] [address] [place] [address] Eosinophils/100 WBC (Bld) 1.6 % Normal 1.0-6.0 [facility] Comment on above: Performed By: #### B GLU #### [facility] [address] [place] [address] Erythrocyte distribution width (RBC) [Ratio] 16.2 % High 11.5-14.5 [facility] Comment on above: Performed By: #### B GLU #### [facility] [address] [place] [address] Granulocytes/100 WBC (Bld) 80.0 % Normal 40.0-80.0 [facility] Comment on above: Performed By: #### B GLU #### [facility] [address] [place] [address] Hematocrit (Bld) [Volume fraction] 25.5 % Low 35.0-47.0 [facility] Comment on above: Performed By: #### B GLU #### [facility] [address] [place] [address] Hemoglobin (Bld) [Mass/Vol] 8.1 g/dL Low 11.7-16.0 [facility] Comment on above: Performed By: #### B GLU #### [facility] [address] [place] [address] Lymphocytes (Bld) [#/Vol] 1.0 10*3/uL Normal 1.0-4.3 [facility] Comment on above: Performed By: #### B GLU #### [facility] [address] [place] [address] Lymphocytes/100 WBC (Bld) 10.0 % Low 20.0-40.0 [facility] Comment on above: Performed By: #### B GLU #### [facility] [address] [place] [address] MCH (RBC) [Entitic mass] 27.0 pg Normal 26.0-34.0 [facility] Comment on above: Performed By: #### B GLU #### [facility] [address] [place] [address] MCHC 31.6 % Low 32.0-36.0 [facility] Comment on above: Performed By: #### B GLU #### [facility] [address] [place] [address] MCV (RBC) [Entitic vol] 85.3 fL Normal 79.0-98.0 [facility] Comment on above: Performed By: #### B GLU #### [facility] [address] [place] [address] Monocytes (Bld) [#/Vol] 0.8 10*3/uL Normal 0.0-0.8 [facility] Comment on above: Performed By: #### B GLU #### [facility] [address] [place] [address] Monocytes/100 WBC (Bld) 8.1 % Normal 2.0-10.0 [facility] Comment on above: Performed By: #### B GLU #### [facility] [address] [place] [address] Platelet mean volume (Bld) [Entitic vol] 7.1 fL Low 7.4-10.4 [facility] Comment on above: Performed By: #### B GLU #### [facility] [address] [place] [address] Platelets (Bld) [#/Vol] 171 10*3/uL Normal 140-440 [facility] Comment on above: Performed By: #### B GLU #### [facility] [address] [place] [address] RBC (Bld) [#/Vol] 2.99 10*6/uL Low 3.80-5.20 [facility] Comment on above: Performed By: #### B GLU #### [facility] [address] [place] [address] WBC (Bld) [#/Vol] 10.3 10*3/uL Normal 3.6-10.7 [facility] Comment on above: Performed By: #### B GLU #### [facility] [address] [place] [address] POCT Glucoseon 10-05-2021 Glucose [Mass/Vol] 168 mg/dL High 70 - 100 mg/dL [facility] Interpretation and review of laboratory results Abnormal [facility] Glucose [Mass/Vol] 115 mg/dL High 70 - 100 mg/dL [facility] Interpretation and review of laboratory results Abnormal [facility] Glucose [Mass/Vol] 187 mg/dL High 70 - 100 mg/dL [facility] Interpretation and review of laboratory results Abnormal [facility] Glucose [Mass/Vol] 127 mg/dL High 70 - 100 mg/dL [facility] Interpretation and review of laboratory results Abnormal [facility] Potassiumon 10-05-2021 Potassium [Moles/Vol] 5.0 mmol/L Normal 3.5-5.1 [facility] Comment on above: Performed By: #### B GLU #### [facility] [address] [place] [address] Potassium [Moles/Vol] 5.0 mmol/L 3.5 - 5.1 mmol/L [facility] Procalcitoninon 10-05-2021 Interpretation See Below Normal [facility] Comment on above: Result Comment: PCT <0.50 = Low risk of severe sepsis and/or septic shock. PCT >2.00 = High risk of severe sepsis and/or septic shock. Performed By: #### H EMDF, LIPA4, LACTS, CMP3M #### [facility] [address] [place] [address] Basic Metabolic Panelon Anion gap [Moles/Vol] 5 mmol/L Normal 3-13 [facility] Comment on above: Performed By: #### H EMDF, LIPA4, LACTS, CMP3M #### [facility] [address] [place] [address] Calcium [Mass/Vol] 8.2 mg/dL Low 8.4-10.4 [facility] Comment on above: Performed By: #### H EMDF, LIPA4, LACTS, CMP3M #### [facility] [address] [place] [address] CO2 [Moles/Vol] 24 mmol/L Normal 22-30 [facility] Comment on above: Performed By: #### H EMDF, LIPA4, LACTS, CMP3M #### [facility] [address] [place] [address] Creatinine [Mass/Vol] 2.65 mg/dL High 0.52-1.25 [facility] Comment on above: Performed By: #### H EMDF, LIPA4, LACTS, CMP3M #### [place] [address] [place] [address] GFR/1.73 sq M.predicted among blacks MDRD (S/P/Bld) [Vol rate/Area] 21.2 mL/min/{1.73_m2} Abnormal >60 [facility] Comment on above: Performed By: #### H EMDF, LIPA4, LACTS, CMP3M #### [place] [address] [place] [address] GFR/1.73 sq M.predicted among non-blacks MDRD (S/P/Bld) [Vol rate/Area] 18.3 mL/min/{1.73_m2} Abnormal >60 [facility] Comment on above: Result Comment: [...] tubular creatinine secretion. Performed By: #### H EMDF LIPA4, LACTS, CMP3M #### [facility] [address] [place] [address] Glucose [Mass/Vol] 167 mg/dL High 70-100 [facility] Comment on above: Performed By: #### H EMDF, LIPA4, LACTS, CMP3M #### [facility] [address] [place] [address] Urea nitrogen [Mass/Vol] 57 mg/dL High 9-20 [facility] Comment on above: Performed By: #### H EMDF, LIPA4, LACTS, CMP3M #### [facility] [address] [place] [address] Chloride [Moles/Vol] 106 mmol/L Normal 98-107 [facility] Comment on above: Performed By: #### H EMDF, LIPA4, LACTS, CMP3M #### [facility] [address] [place] [address] Potassium [Moles/Vol] 5.0 mmol/L Normal 3.5-5.1 [facility] Comment on above: Performed By: #### H EMDF, LIPA4, LACTS, CMP3M #### [facility] [address] [place] [address] Sodium [Moles/Vol] 136 mmol/L Normal 135-145 [facility] Comment on above: Performed By: #### H EMDF, LIPA4, LACTS, CMP3M #### [facility] [address] [place] [address] Basic Metabolic Panel w/ Ref aidan to MGon 10-04-2021 Anion gap [Moles/Vol] 5 mmol/L 3 - 13 mmol/L [facility] Calcium [Mass/Vol] 8.2 mg/dL Low 8.4 - 10. 4 mg/dL [facility] Chloride [Moles/Vol] 106 mmol/L 98 - 10 7 mmol/L [facility] CO2 [Moles/Vol] 24 mmol/L 22 - 30 mmol/L [facility] Creatinine [Mass/Vol] 2.65 mg/dL High 0.52 - 1.25 mg/dL [facility] EGFR IF NonAfrican Gambian 18.3 mL/min Abnormal >60 [facility] GFR/1.73 sq M.predicted among blacks MDRD (S/P/Bld) [Vol rate/Area] 21.2 mL/min/{1.73_m2} Abnormal >60 [facility] Glucose [Mass/Vol] 167 mg/dL High 70 - 100 mg/dL [facility] Interpretation and review of laboratory results Abnormal [facility] Potassium [Moles/Vol] 5.0 mmol/L 3.5 - 5.1 mmol/L [facility] Sodium [Moles/Vol] 136 mmol/L 135 - 145 mmol/L [facility] Urea nitrogen (BldV) [Mass/Vol] 57 mg/dL High 9 - 20 mg/dL [facility] Brain Natriuretic Peptideon 10-04-2021 Interpretation and review of laboratory results Abnormal [facility] Natriuretic peptide B (Bld) [Mass/Vol] 6910 pg/mL High 0 - 125 pg/mL [facility] CBC Auto Differentialon Absolute Baso # 0.0 10*3/uL 0.0 - [...] 8.3 g/dL Low 11.7 - 16.0 g/dL [facility] Interpretation and review of laboratory results Abnormal [...] [#/Vol] 178 10*3/uL 140 - 440 10*3/uL [facility] RBC (Bld) [#/Vol] 3.05 10*6/uL Low 3.80 - 5.2 0 10*6/uL [facility] WBC (Bld) [#/Vol] 16.5 10*3/uL High 3.6 - 10.7 10*3/uL [facility] CULTURE BLOODon 10-04-2021 Microscopic examination of blood, culture CULTURE BLOOD --> Status: F Escherichia coli DETECTED. Presumptive identification performed using WordSentry PCR methodology; confirmatory identification to follow. _ The WordSentry BCID2 PCR Panel can detect the following [...] VIM, and mcr-1. Presumptive identification performed using WordSentry PCR methodology; confirmatory identification to follow. _ The [employer]Sentry BCID2 PCR Panel can detect the following [...] <= 1 S Aztreonam(ASHU) <= 1 S Ampicillin/Sulbactam(DC C) <= 2 S Pip/Tazobactam(ASHU) <= 4 S Meropenem(ASHU) <= 0.25 S Ciprofloxacin(ASHU) <= 0.25 S Gentamicin(ASHU) <= 1 S Amikacin(ASHU) <= 2 S Normal [facility] Comment on above: Performed By: #### L ACTS #### [facility] [address] [place] [address] Culture, Blood 1on 1 Blood Culture, Routine Abnormal [facility] Work Phone: [phone] Blood Culture, Routine Escherichia coli Abnormal [facility] Work Phone: [phone] Blood Culture, Routine Isolated: [facility] Work Phone: [phone] [facility] Work Phone: [phone] D-Dimer, Innovanceon 021 D-Dimer, Innovance 1.09 mg/L High <0.19-0.50 [facility] Comment on above: Result Comment: Inno garcia D-Dimer values of <0.50 mg/L FEU can be used in combination with a pre-test probability model (e.g. Well's) to exclude pulmonary embolism (PE) disease, as well as an aid in the diagnosis of deep vein thrombosis (DVT). Performed By: #### B GLU #### [facility] [address] [place] [address] D-Dimer, Quantitativeon D-Dimer, Quant 1.09 mg/L High <0.19 - 0.50 [facility] Interpretation and review of laboratory results Abnormal [facility] Glucose,Bedsideon 10-04-2021 Glucose [Mass/Vol] 301 mg/dL High 70-100 [facility] Comment on above: Result Comment: Test performed by glucose meter. Results may be 10%-15% lower than serum/plasma values. (CLIA ID [id number]) Performed By: #### C MP3Wild, HEMDF, MDIFF #### [facility] [employer] [facility] [address] [place] [address] #### PCAL #### [facility] [employer] [facility] [address] [place] [address] Glucose [Mass/Vol] 266 mg/dL High 70-100 [facility] Comment on above: Result Comment: Test performed by glucose meter. Results may be 10%-15% lower than serum/plasma values. (CLIA ID [id number]) Performed By: #### C DINA3ROMEO Rome, MDIFF #### [facility] [employer] [facility] [address] [place] [address] #### PCAL #### [facility] [employer] [facility] [address] [place] [address] Glucose [Mass/Vol] 215 mg/dL High 70-100 [facility] Comment on above: Result Comment: Test performed by glucose meter. Results may be 10%-15% lower than serum/plasma values. (CLIA ID [id number]) Performed By: #### B GLU #### [facility] [employer] [facility] [address] [place] [address] Glucose [Mass/Vol] 132 mg/dL High 70-100 [facility] Comment on above: Result Comment: Test performed by glucose meter. Results may be 10%-15% lower than serum/plasma values. (CLIA ID [id number]) Performed By: #### H EMDF, LIPA4, LACTS, CMP3M #### [facility] [employer] [facility] [address] [place] [address] Glucose [Mass/Vol] 155 mg/dL High 70-100 [facility] Comment on above: Result Comment: Test performed by glucose meter. Results may be 10%-15% lower than serum/plasma values. (CLIA ID [id number]) Performed By: #### H EMDF, LIPA4, LACTS, CMP3M #### [facility] [employer] [facility] [address] [place] [address] Hemogram w/ Autodiffon 10-04 Abs Baso Cnt 0.0 10*3/uL Normal 0.0-0.[address] [facility] Comment on above: Performed By: #### C ROMEO DEY MDIFF #### [facility] [address] [place] [address] #### PCAL #### [facility] [address] [place] [address] Abs Neutrophile Cnt 14.2 10*3/uL High 1.8-7.0 [facility] Comment on above: Performed By: #### C ROMEO DEY MDIFF #### [facility] [address] [place] [address] #### PCAL #### [place] [address] [place], [place] Basophils/100 WBC (Bld) 0.3 % Normal 0.0-2.0 [facility] Comment on above: Performed By: #### C ROMEO DEY MDIFF #### [facility] [address] [place] [address] #### PCAL #### [place] [address] [place], [place] Eosinophils (Bld) [#/Vol] 0.2 10*3/uL Normal 0.0-0.5 [facility] Comment on above: Performed By: #### C ROMEO DEY MDIFF #### [facility] [address] [place] [address] #### PCAL #### [place] [address] [place], [place] Eosinophils/100 WBC (Bld) 1.4 % Normal 1.0-6.0 [facility] Comment on above: Performed By: #### C ROMEO DEY MDIFF #### [facility] [address] [place] [address] #### PCAL #### [address] Erythrocyte distribution width (RBC) [Ratio] 16.3 % High 11.5-14.5 [facility] Comment on above: Performed By: #### C ROMEO DEY MDIFF #### [facility] [address] [place] [address] #### PCAL #### [place] [address] [place], [place] Granulocytes/100 WBC (Bld) 86.2 % High 40.0-80.0 [facility] Comment on above: Performed By: #### C ROMEO DEY MDIFF #### [facility] [address] [place] [address] #### PCAL #### [place] [address] [place], [place] Hematocrit (Bld) [Volume fraction] 25.7 % Low 35.0-47.0 [facility] Comment on above: Performed By: #### C ROMEO DEY MDIFF #### [facility] [address] [place] [address] #### PCAL #### [place] [address] [place], [place] Hemoglobin (Bld) [Mass/Vol] 8.3 g/dL Low 11.7-16.0 [facility] Comment on above: Performed By: #### C ROMEO DEY MDIFF #### [facility] [address] [place] [address] #### PCAL #### [place] [address] [place], [place] Lymphocytes (Bld) [#/Vol] 1.2 10*3/uL Normal 1.0-4.3 [facility] Comment on above: Performed By: #### C ROMEO DEY MDIFF #### [facility] [address] [place] [address] #### PCAL #### [place] [address] [place], [place] Lymphocytes/100 WBC (Bld) 7.5 % Low 20.0-40.0 [facility] Comment on above: Performed By: #### C ROMEO DEY MDIFF #### [facility] [address] [place] [address] #### PCAL #### [place] [address] [place], [place] MCH (RBC) [Entitic mass] 27.2 pg Normal 26.0-34.0 [facility] Comment on above: Performed By: #### ROMEO LOPEZ MDIFF #### [facility] [address] [place] [address] #### PCAL #### [address] MCHC 32.3 % Normal 32.0-36.0 [facility] Comment on above: Performed By: #### C ROMEO DEY MDIFF #### [facility] [address] [place] #### PCAL #### [address] MCV (RBC) [Entitic vol] 84.3 fL Normal 79.0-98.0 [facility] Comment on above: Performed By: #### C ROMEO DEY MDIFF #### [facility] [address] [place] #### PCAL #### [address] Monocytes (Bld) [#/Vol] 0.8 10*3/uL Normal 0.0-0.8 [facility] Comment on above: Performed By: #### ROMEO LOPEZ MDIFF #### [facility] [address] [place] [address] #### PCAL #### [address] Monocytes/100 WBC (Bld) 4.6 % Normal 2.0-10.0 [facility] Comment on above: Performed By: #### ROMEO LOPEZ MDIFF #### [facility] [address] [place] [address] #### PCAL #### [address] Platelet mean volume (Bld) [Entitic vol] 7.0 fL Low 7.4-10.4 [facility] Comment on above: Performed By: #### ROMEO LOPEZ MDIFF #### [facility] [address] [place] [address] #### PCAL #### [place] [address] [place] [address] Platelets (Bld) [#/Vol] 178 10*3/uL Normal 140-440 [facility] Comment on above: Performed By: #### C ROMEO DEY MDIFF #### [facility] [address] [place] [address] #### PCAL #### [place] [address] [place] [address] RBC (Bld) [#/Vol] 3.05 10*6/uL Low 3.80-5.20 [facility] Comment on above: Performed By: #### C ROMEO DEY MDIFF #### [facility] [address] [place] [address] #### PCAL #### [place] [address] [place] [address] WBC (Bld) [#/Vol] 16.5 10*3/uL High 3.6-10.7 [facility] Comment on above: Performed By: #### C ROMEO DEY MDIFF #### [facility] [address] [place] [address] #### PCAL #### [place] [address] [place] [address] NT pro BNPon 10-04-2021 Natriuretic peptide B (Bld) [Mass/Vol] 6910 pg/mL High 0-125 [facility] Comment on above: Performed By: #### H EMDF, LIPA4, LACTS, CMP3M #### [facility] [address] [place] [address] No Panel Informationon 10-04 [facility] Interpretation and review of laboratory results Abnormal [facility] Work Phone: [facility] POCT Glucoseon 10-04-2021 Glucose [Mass/Vol] 301 mg/dL High 70 - 100 mg/dL [facility] Interpretation and review of laboratory results Abnormal [facility] Glucose [Mass/Vol] 266 mg/dL High 70 - 100 mg/dL [facility] Interpretation and review of laboratory results Abnormal [facility] Glucose [Mass/Vol] 215 mg/dL High 70 - 100 mg/dL [facility] Interpretation and review of laboratory results Abnormal [facility] Glucose [Mass/Vol] 132 mg/dL High 70 - 100 mg/dL [facility] Interpretation and review of laboratory results Abnormal [facility] CREATININE, RANDOM URINEon 1 12-04-2020 Creatinine (U) [Mass/Vol] 100.7 mg/dL No Range [facility] Comp Panel with Mg Reflexon 10-03-2021 ALP [Catalytic activity/Vol] 60 U/L Normal 38-126 [facility] Comment on above: Performed By: #### L ACTS #### [facility] [address] [place] [address] ALT [Catalytic activity/Vol] 14 U/L Normal 0-34 [facility] Comment on above: Result Comment: The ALT test is performed by an updated assay method. Please note that the reference intervals have been changed and are now sex specific. Performed By: #### L ACTS #### [facility] [address] [place] [address] Anion gap [Moles/Vol] 7 mmol/L Normal 3-13 [facility] Comment on above: Performed By: #### L ACTS #### [facility] [address] [place] [address] AST [Catalytic activity/Vol] 18 U/L Normal 15-46 [facility] Comment on above: Performed By: #### L ACTS #### [facility] [address] [place] [address] Bilirubin [Mass/Vol] 0.6 mg/dL Normal 0.2-1.3 [facility] Comment on above: Performed By: #### L ACTS #### [facility] [address] [place] [address] CO2 [Moles/Vol] 23 mmol/L Normal 22-30 [facility] Comment on above: Performed By: #### L ACTS #### [facility] [address] [place] [address] Creatinine [Mass/Vol] 2.51 mg/dL High 0.52-1.25 [facility] Comment on above: Performed By: #### L ACTS #### [facility] [address] [place] [address] GFR/1.73 sq M.predicted among blacks MDRD (S/P/Bld) [Vol rate/Area] 22.6 mL/min/{1.73_m2} Abnormal >60 [facility] Comment on above: Performed By: #### L ACTS #### [facility] [address] [place] [address] GFR/1.73 sq M.predicted among non-blacks MDRD (S/P/Bld) [Vol rate/Area] 19.5 mL/min/{1.73_m2} Abnormal >60 [facility] Comment on above: Result Comment: [...] secretion. Performed By: #### L ACTS #### [facility] [address] [place] [address] Glucose [Mass/Vol] 200 mg/dL High 70-100 [facility] Comment on above: Performed By: #### L ACTS #### [facility] [address] [place] [address] Protein [Mass/Vol] 5.8 g/dL Low 6.3-8.2 [facility] Comment on above: Performed By: #### L ACTS #### [facility] [address] [place] [address] Urea nitrogen [Mass/Vol] 51 mg/dL High 9-20 [facility] Comment on above: Performed By: #### L ACTS #### [facility] [address] [place] [address] Potassium [Moles/Vol] 4.8 mmol/L Normal 3.5-5.1 [facility] Comment on above: Performed By: #### L ACTS #### [facility] [address] [place] [address] Albumin [Mass/Vol] 3.2 g/dL Low 3.5-5.0 [facility] Comment on above: Performed By: #### L ACTS #### [facility] [address] [place] [address] Chloride [Moles/Vol] 103 mmol/L Normal 98-107 [facility] Comment on above: Performed By: #### L ACTS #### [facility] [address] [place] [address] Sodium [Moles/Vol] 133 mmol/L Low 135-145 [facility] Comment on above: Performed By: #### L ACTS #### [facility] [address] [place] [address] Calcium [Mass/Vol] 7.6 mg/dL Low 8.4-10.4 [facility] Comment on above: Performed By: #### L ACTS #### [facility] [address] [place] [address] Comprehensive Metabolic Pane l w/ Reflex to MGon 10-03-2021 Albumin [Mass/Vol] 3.2 g/dL Low 3.5 - 5.0 g/dL [facility] ALP (Bld) [Catalytic activity/Vol] 60 U/L 38 - 126 U/L [facility] ALT [Catalytic activity/Vol] 14 U/L 0 - 34 U/L [facility] Anion gap [Moles/Vol] 7 mmol/L 3 - 13 mmol/L [facility] AST [Catalytic activity/Vol] 18 U/L 15 - 46 U/L [facility] Bilirubin [Mass/Vol] 0.6 mg/dL 0.2 - 1 .3 mg/dL [facility] Chloride [Moles/Vol] 103 mmol/L 98 - 10 7 mmol/L [facility] CO2 [Moles/Vol] 23 mmol/L 22 - 30 mmol/L [facility] Creatinine [Mass/Vol] 2.51 mg/dL High 0.52 - 1.25 mg/dL [facility] EGFR IF NonAfrican Gambian 19.5 mL/min Abnormal >60 [facility] Free PSA/Total PSA [Mass fraction] 5.8 g/dL Low 6.3 - 8.2 g/dL [facility] GFR/1.73 sq M.predicted among blacks MDRD (S/P/Bld) [Vol rate/Area] 22.6 mL/min/{1.73_m2} Abnormal >60 [facility] Glucose [Mass/Vol] 200 mg/dL High 70 - 100 mg/dL [facility] Interpretation and review of laboratory results Abnormal [facility] Potassium [Moles/Vol] 4.8 mmol/L 3.5 - 5.1 mmol/L [facility] Sodium [Moles/Vol] 133 mmol/L Low 135 - 145 mmol/L [facility] Urea nitrogen (BldV) [Mass/Vol] 51 mg/dL High 9 - 20 mg/dL [facility] Creatinine, Ur Randomon - Creatinine, Ur Random 100.7 mg/dL Normal No Range [facility] Comment on above: Performed By: #### H EMDF, LIPA4, LACTS, CMP3M #### [facility] [address] [place] [address] ECHO Complete 2D W Doppler W Coloron 10-03-2021 [facility] CARDIOLOGY [facility] Work Phone: ECHO Complete 2D W Doppler W ColorOrdered By: Janie Lr on 10-03-2021 [facility] Work Phone: Echo Complete w/wo Contrasto n 10-03-2021 Echo Complete w/wo Contrast Patient Name: KIMBERLY PATEL Ultrasound ACCESSION EXAM DATE/TIME PROCEDURE ORDERING PROVIDER [id number] 10/03/2021 13:34 EST Echo Complete w/wo SETH PAZ ALLISON Contrast Reason For Exam (Echo Complete w/wo Contrast) shortness of breath, history of HfpEf Report TRANSTHORACIC ECHOCARDIOGRAM PATIENT: Kimberly Patel STUDY DATE: 10/03/2021 : 1955 AGE: 66 HT/WT: 162.6 cm (66 130.2 kg in) (286.4 lb) GENDER: F BP: 98 / 50 LOCATION: [facility] PATIENT Inpatient [facility] STATUS: *ORDERING PHYSICIAN: * Jackson, *FELLOW: * Baldomero Pan *READING PHYSICIAN: * Janie *RADIOLOGICAL DEFENSE OFFICER: * Be Ribera RDCS, MD, [facility] AE, CCT, RCS -- INDICATIONS: SOB, Hx. [...] transthoracic echocardiogram. Procedure: Image quality was suboptimal. Showcase lot #: [id number]. M-mode, complete 2D, complete [...] 2-p 1 (more content not included)... Normal [facility] Glucose, Bedsideon Confirmation see below Normal [facility] Comment on above: Result Comment: No c onfirmation received. Performed By: #### L ACTS #### [facility] [address] [place] [address] Glucose,Bedside > 450 High 70-100 [facility] Comment on above: Result Comment: Test performed by glucose meter. Results may be 10%-15% lower than serum/plasma values. (CLIA ID [id number]) Performed By: #### L ACTS #### [facility] [address] [place] [address] Glucose,Bedsideon 10-03-2021 Glucose [Mass/Vol] 161 mg/dL [facility] [address] Comment on above: Result Comment: Test performed by glucose meter. Results may be 10%-15% lower than serum/plasma values. (CLIA ID [id number]) Performed By: #### H EMDF, LIPA4, LACTS, CMP3M #### [employer] [address] [place] [address] Glucose [Mass/Vol] 225 mg/dL [address] Comment on above: Result Comment: Test performed by glucose meter. Results may be 10%-15% lower than serum/plasma values. (CLIA ID [id number]) Performed By: #### H EMDF, LIPA4, LACTS, CMP3M #### [employer] [address] [place] [address] Glucose [Mass/Vol] 209 mg/dL High [address] Comment on above: Result Comment: Test performed by glucose meter. Results may be 10%-15% lower than serum/plasma values. (CLIA ID [id number]) Performed By: #### C MP3M, HEMDF, MDIFF #### [employer] [address] [place] [address] #### PCAL #### [facility] [address] [address] Glucose [Mass/Vol] 250 mg/dL High 70-100 [facility] Comment on above: Result Comment: Test performed by glucose meter. Results may be 10%-15% lower than serum/plasma values. (CLIA ID [id number]) Performed By: #### C MP3Wild, HEMELLEN, MDIFF #### [facility] [employer] [facility] [address] [place] [address] #### PCAL #### [facility] [address] [place] [address] Glucose [Mass/Vol] 221 mg/dL High 70-100 [facility] Comment on above: Result Comment: Test performed by glucose meter. Results may be 10%-15% lower than serum/plasma values. (CLIA ID [id number]) Performed By: #### L ACTS #### [facility] [address] [place] [address] LEGIONELLA AG, URINEon 10-03 LEGIONELLA AG, URINE LEGIONELLA AG, URIN E --> Status: F Legionella antigen NOT DETECTED. Normal [facility] Comment on above: Performed By: #### L ACTS #### [facility] [address] [place] [address] Lactate, Sepsison 10-03-2021 Lactate [Moles/Vol] 0.9 mmol/L 0.7 - 2. 0 mmol/L [facility] Lactic Acid, Sepsison 2020 Lactate [Moles/Vol] 0.9 mmol/L Normal 0.7-2.0 [facility] Comment on above: Performed By: #### L ACTS #### [facility] [address] [place] [address] Legionella Antigen, Urineon 10-03-2021 LEGIONELLA ANTIGEN Not detected [facility] No Panel Informationon 10-03 [facility] POC Glucose, Whole Bloodon 1 12-04-2020 Confirmation see below [facility] Glucose [Mass/Vol] mg/dL High 70 - 100 mg/dL [facility] Interpretation and review of laboratory results Abnormal [facility] POCT Glucoseon 10-03-2021 Glucose [Mass/Vol] 161 mg/dL High 70 - 100 mg/dL [facility] Interpretation and review of laboratory results Abnormal [facility] Glucose [Mass/Vol] 225 mg/dL High 70 - 100 mg/dL [facility] Work Phone: Interpretation and review of laboratory results Abnormal [facility] Work Phone: [facility] Work Phone: Glucose [Mass/Vol] 209 mg/dL High 70 - 100 mg/dL [facility] Work Phone: Interpretation and review of laboratory results Abnormal [facility] Work Phone: [facility] Work Phone: [facility] POCT GlucoseOrdered By: Nohemy Eng on 10-03-2021 Glucose [Mass/Vol] 250 mg/dL High 70 - 100 mg/dL [facility] Work Phone: Interpretation and review of laboratory results Abnormal [facility] Work Phone: [facility] Work Phone: Procalcitoninon 10-03-2021 Procalcitonin 75.82 ng/mL High 0.00-0.09 [facility] Comment on above: Performed By: #### H EMDF, LIPA4, LACTS, CMP3M #### [facility] [employer] [address] [place] [address] SODIUM, URINE, RANDOMon 12-0 Interpretation and review of laboratory results Abnormal [facility] Sodium (U) [Moles/Vol] 9 mmol/L Low 30 - 90 mmol/L [facility] STREP PNEUMO ANTIGEN, URINEo n 10-03-2021 STREP PNEUMO ANTIGEN, URINE STREP PNEUMO ANTIGEN, URINE --> Status: F Strep pneumo antigen NOT DETECTED. Normal [facility] Comment on above: Performed By: #### L ACTS #### [facility] [employer] [address] [place] [address] STREP PNEUMONIAE ANTIGENon 1 12-04-2020 STREP PNEUMONIAE ANTIGEN, URINE Not detected [facility] Sodium, Ur Randomon 10-03-20 21 Sodium [Moles/Vol] 9 mmol/L Low 30-90 [facility] Comment on above: Performed By: #### H EMDF, LIPA4, LACTS, CMP3M #### [facility] [employer] [facility] [address] [place] [address] US RETROPERITONEAL COMPLETEo n 10-03-2021 MARLY CASTRO RAD [facility] Work Phone: Radiology Study observation (narrative) [facility] Work Phone: US RETROPERITONEAL COMPLETEO rdered By: Citlalli Warren on 10-03-2021 [facility] Work Phone: US Retroperitoneal Completeo n 10-03-2021 US Retroperitoneal Complete Patient Name: KIMBERLY PATEL Ultrasound ACCESSION EXAM DATE/TIME PROCEDURE ORDERING PROVIDER [id number] 10/03/2021 14:38 EST US Retroperitoneal JACKSON, STATOR WINDER, DUYEN Complete CPT code 42403 Reason For Exam (US Retroperitoneal Complete) DARRELL [...] Transcribed Date and Time: 10/03/2021 2:45 Normal [facility] Arterial Blood Gas Respirato jace 10-02-2021 Base Excess -1.0 mmol/L Normal -3.0-3.0 [facility] Comment on above: Performed By: #### L ACTS #### [facility] [address] [place] [address] CO2 [Moles/Vol] 24.8 mmol/L Normal 23.0-27.0 [facility] Comment on above: Performed By: #### L ACTS #### [facility] [address] [place] [address] FIO2 4 Normal [facility] Comment on above: Result Comment: Perf ormed by CLIA ID: [id number] [place], [place] Performed By: #### L ACTS #### [facility] [address] [place] [address] HCO3 (Bld) [Moles/Vol] 23.6 mmol/L Normal 21.0-25.0 [facility] Comment on above: Performed By: #### L ACTS #### [facility] [address] [place] [address] Oxygen (Bld) [Partial pressure] 86.9 mm[Hg] Normal 80.0-100.0 [facility] Comment on above: Performed By: #### L ACTS #### [facility] [address] [place] [address] Oxygen saturation in Blood 96.7 % Normal 95.0-100.0 [facility] Comment on above: Performed By: #### L ACTS #### [facility] [address] [place] [address] pCO2 38.1 mm[Hg] Normal 35.0-45.0 [facility] Comment on above: Performed By: #### L ACTS #### [facility] [address] [place] [address] pH 7.400 Normal 7.350-7.450 [facility] Comment on above: Performed By: #### L ACTS #### [facility] [address] [place] [address] CBC auto differentialon 12-0 Absolute Baso # 0.0 10*3/uL 0.0 - 0.2 10*3/uL [facility] Work Phone: Absolute Neut # 13.7 10*3/uL High 1.8 - 7.0 10*3/uL [facility] Work Phone: [phone] Basophils/100 WBC (Bld) 0.1 % 0.0 - 2.0 % [facility] Work Phone: 1 Eosinophils (Bld) [#/Vol] 0.0 10*3/uL 0.0 - 0.5 10*3/uL [facility] Work Phone: [phone] Eosinophils/100 WBC (Bld) 0.2 % Low 1.0 - 6.0 % [facility] Work Phone: 1 Granulocytes/100 WBC (Bld) 96.7 % High 40.0 - 80.0 % [employer] Work Phone: Hematocrit (Bld) [Volume fraction] 31.7 % Low 35.0 - 47.0 % [employer] Work Phone: Hemoglobin.gastrointest inal spec 1 Ql (Stl) 10.3 g/dL Low 11.7 - 16.0 g/dL [employer] Work Phone: Interpretation and review of laboratory results Abnormal [employer] Work Phone: Lymphocytes (Bld) [#/Vol] 0.2 10*3/uL Low 1.0 - 4.3 10*3/uL [employer] Work Phone: Lymphocytes/100 WBC (Bld) 1.6 % Low 20.0 - 40.0 % [employer] Work Phone: MCH (RBC) [Entitic mass] 26.9 pg 26.0 - 34.0 pg [facility] Work Phone: MCHC (RBC) [Mass/Vol] 32.4 % 32.0 - 36.0 % [facility] Work Phone: MCV (RBC) [Entitic vol] 82.8 fL 79.0 - 98.0 fL [employer] Work Phone: Monocytes (Bld) [#/Vol] 0.2 10*3/uL 0.0 - 0.8 10*3/uL [facility] Work Phone: 22 Monocytes/100 WBC (Bld) 1.4 % Low 2.0 - 10.0 % [facility] Work Phone: [phone] Platelet distribution width (Bld) [Ratio] 16.6 % High 11.5 - 14.5 % [facility] Work Phone: [phone] Platelet mean volume (Bld) [Entitic vol] 6.7 fL Low 7.4 - 10.4 fL [facility] Work Phone: [phone] Platelets (Bld) [#/Vol] 228 10*3/uL 140 - 440 10*3/uL [facility] Work Phone: 1 RBC (Bld) [#/Vol] 3.83 10*6/uL 3.80 - 5.2 0 10*6/uL [facility] Work Phone: 1 WBC (Bld) [#/Vol] 14.2 10*3/uL High 3.6 - 10.7 10*3/uL [facility] Work Phone: [phone] [facility] Work Phone: [phone] COVID-19, Flu A/B, and RSV C omon 10-02-2021 Influenza A by PCR Not detected [facility] Work Phone: [phone] Influenza B by PCR Not detected [facility] Work Phone: [phone] RSV PCR [facility] Work Phone: SARS-CoV-2 (COVID-19) RNA IGGY+probe Ql (Unsp spec) Not detected [facility] Work Phone: [phone] [facility] Work Phone: [phone] Chest Portableon 10-02-20 21 CR Chest Portable Patient Name: KIMBERLY PATEL Diagnostic Radiology ACCESSION EXAM DATE/TIME PROCEDURE ORDERING PROVIDER [id number] 10/02/2021 00:32 EST CR Chest Portable QUIQUE ROBERTS CPT code 80216 Reason For Exam (CR Chest Portable) sepsis [...] Transcribed Date and Time: 10/02/2021 0:[address] [facility] [address] Abdomen Pelvis Wo Contras ton 10-02-2021 [facility] Work Phone: [facility] Work Phone: Radiology Study observation (narrative) [facility] Work Phone: CT Abdomen/Pelvis w/o Contra ston 10-02-2021 CT Abdomen/Pelvis w/o Contrast Patient Name: KIMBERLY PATEL Computed Tomography ACCESSION EXAM DATE/TIME PROCEDURE ORDERING PROVIDER [id number] 10/02/2021 02:[address] Abdomen/Pelvis (No [id number] -QUIQUE ARANDA PO, No IV) CPT code 02486 Reason For Exam (CT Abdomen/Pelvis (No PO, [...] Transcribed Date and Time: 10/02/2021 2:[address] [facility] [address] Head WO Contraston 2020 [facility] Work Phone: [facility] Work Phone: Radiology Study observation (narrative) [facility] Work Phone: CT Head or Brain w/o Contras ton 10-02-2021 CT Head or Brain w/o Contrast Patient Name: KIMBERLY PATEL Computed Tomography ACCESSION EXAM DATE/TIME PROCEDURE ORDERING PROVIDER [id number] 10/02/2021 02:[address] Head or Brain w/o MerlinCristine SuMANOJQUIQUE Contrast CPT code 52124 Reason For Exam (CT Head or Brain [...] Transcribed Date and Time: 10/02/2021 2:53 Normal [facility] Comp Metabolic Panelon 10-02 Calcium [Mass/Vol] 7.9 mg/dL Low 8.4-10.4 [facility] Comment on above: Performed By: #### H EMDF, LIPA4, LACTS, CMP3M #### [facility] [address] [place] [address] ALP [Catalytic activity/Vol] 93 U/L Normal 38-126 [facility] Comment on above: Performed By: #### H EMDF, LIPA4, LACTS, CMP3M #### [facility] [address] [place] [address] ALT [Catalytic activity/Vol] 18 U/L Normal 0-34 [facility] Comment on above: Result Comment: The ALT test is performed by an updated assay method. Please note that the reference intervals have been changed and are now sex specific. Performed By: #### H EMDF, LIPA4, LACTS, CMP3M #### [facility] [address] [place] [address] Anion gap [Moles/Vol] 6 mmol/L Normal 3-13 [facility] Comment on above: Performed By: #### H EMDF, LIPA4, LACTS, CMP3M #### [facility] [address] [place] [address] AST [Catalytic activity/Vol] 45 U/L Normal 15-46 [facility] Comment on above: Performed By: #### H EMDF, LIPA4, LACTS, CMP3M #### [facility] [address] [place] [address] Bilirubin [Mass/Vol] 0.5 mg/dL Normal 0.2-1.3 [facility] Comment on above: Performed By: #### H EMDF, LIPA4, LACTS, CMP3M #### [facility] [address] [place] [address] CO2 [Moles/Vol] 22 mmol/L Normal 22-30 [facility] Comment on above: Performed By: #### H EMDF, LIPA4, LACTS, CMP3M #### [facility] [address] [place] [address] Creatinine [Mass/Vol] 2.28 mg/dL High 0.52-1.25 [facility] Comment on above: Performed By: #### H EMDF, LIPA4, LACTS, CMP3M #### [facility] [address] [place] [address] GFR/1.73 sq M.predicted among blacks MDRD (S/P/Bld) [Vol rate/Area] 25.4 mL/min/{1.73_m2} Abnormal >60 [facility] Comment on above: Performed By: #### H EMDF, LIPA4, LACTS, CMP3M #### [facility] [address] [place] [address] GFR/1.73 sq M.predicted among non-blacks MDRD (S/P/Bld) [Vol rate/Area] 21.9 mL/min/{1.73_m2} Abnormal >60 [facility] Comment on above: Result Comment: [...] #### H EMDF, LIPA4, LACTS, CMP3M #### [facility] [address] [place] [address] Glucose [Mass/Vol] 476 mg/dL Critically high 70-100 [facility] Comment on above: Performed By: #### H EMDF, LIPA4, LACTS, CMP3M #### [facility] [address] [place] [address] Protein [Mass/Vol] 6.1 g/dL Low 6.3-8.2 [facility] Comment on above: Performed By: #### H EMDF, LIPA4, LACTS, CMP3M #### [facility] [address] [place] [address] Urea nitrogen [Mass/Vol] 46 mg/dL High 9-20 [facility] Comment on above: Performed By: #### H EMDF, LIPA4, LACTS, CMP3M #### [facility] [address] [place] [address] Albumin [Mass/Vol] 3.2 g/dL Low 3.5-5.0 [facility] Comment on above: Performed By: #### H EMDF, LIPA4, LACTS, CMP3M #### [facility] [address] [place] [address] Chloride [Moles/Vol] 103 mmol/L Normal 98-107 [facility] Comment on above: Performed By: #### H EMDF, LIPA4, LACTS, CMP3M #### [facility] [address] [place] [address] Potassium [Moles/Vol] 5.4 mmol/L High 3.5-5.1 [facility] Comment on above: Performed By: #### H EMDF, LIPA4, LACTS, CMP3M #### [facility] [address] [place] [address] Sodium [Moles/Vol] 131 mmol/L Low 135-145 [facility] Comment on above: Performed By: #### H EMDF, LIPA4, LACTS, CMP3M #### [facility] [address] [place] [address] Comp Panel with Mg Reflexon 10-02-2021 Calcium [Mass/Vol] 8.5 mg/dL Normal 8.4-10.4 [facility] Comment on above: Performed By: #### H EMDF, LIPA4, LACTS, CMP3M #### [facility] [address] [place] [address] ALP [Catalytic activity/Vol] 140 U/L High 38-126 [facility] Comment on above: Performed By: #### H EMDF, LIPA4, LACTS, CMP3M #### [facility] [address] [place] [address] ALT [Catalytic activity/Vol] 19 U/L Normal 0-34 [facility] Comment on above: Result Comment: The ALT test is performed by an updated assay method. Please note that the reference intervals have been changed and are now sex specific. Performed By: #### H EMDF, LIPA4, LACTS, CMP3M #### [facility] [address] [place] [address] Anion gap [Moles/Vol] 7 mmol/L Normal 3-13 [facility] Comment on above: Performed By: #### H EMDF, LIPA4, LACTS, CMP3M #### [facility] [address] [place] [address] AST [Catalytic activity/Vol] 33 U/L Normal 15-46 [facility] Comment on above: Performed By: #### H EMDF, LIPA4, LACTS, CMP3M #### [facility] [address] [place] [address] CO2 [Moles/Vol] 25 mmol/L Normal 22-30 [facility] Comment on above: Performed By: #### H EMDF, LIPA4, LACTS, CMP3M #### [facility] [address] [place] [address] Glucose [Mass/Vol] 394 mg/dL High 70-100 [facility] Comment on above: Performed By: #### H EMDF, LIPA4, LACTS, CMP3M #### [facility] [address] [place] [address] Protein [Mass/Vol] 6.8 g/dL Normal 6.3-8.2 [facility] Comment on above: Performed By: #### H EMDF, LIPA4, LACTS, CMP3M #### [facility] [address] [place] [address] Urea nitrogen [Mass/Vol] 47 mg/dL High 9-20 [facility] Comment on above: Performed By: #### H EMDF, LIPA4, LACTS, CMP3M #### [facility] [address] [place] [address] Bilirubin [Mass/Vol] 0.5 mg/dL Normal 0.2-1.3 [facility] Comment on above: Performed By: #### H EMDF, LIPA4, LACTS, CMP3M #### [facility] [address] [place] [address] Creatinine [Mass/Vol] 2.31 mg/dL High 0.52-1.25 [facility] Comment on above: Performed By: #### H EMDF, LIPA4, LACTS, CMP3M #### [facility] [address] [place] [address] GFR/1.73 sq M.predicted among blacks MDRD (S/P/Bld) [Vol rate/Area] 25.0 mL/min/{1.73_m2} Abnormal >60 [facility] Comment on above: Performed By: #### H EMDF, LIPA4, LACTS, CMP3M #### [facility] [address] [place] [address] GFR/1.73 sq M.predicted among non-blacks MDRD (S/P/Bld) [Vol rate/Area] 21.6 mL/min/{1.73_m2} Abnormal >60 [facility] Comment on [...] #### H EMDF, LIPA4, LACTS, CMP3M #### [facility] [address] [place] [address] Albumin [Mass/Vol] 3.5 g/dL Normal 3.5-5.0 [facility] Comment on above: Performed By: #### H EMDF, LIPA4, LACTS, CMP3M #### [facility] [address] [place] [address] Chloride [Moles/Vol] 103 mmol/L Normal 98-107 [facility] Comment on above: Performed By: #### H EMDF, LIPA4, LACTS, CMP3M #### [facility] [address] [place] [address] Potassium [Moles/Vol] 4.7 mmol/L Normal 3.5-5.1 [facility] Comment on above: Performed By: #### H EMDF, LIPA4, LACTS, CMP3M #### [facility] [address] [place] [address] Sodium [Moles/Vol] 135 mmol/L Normal 135-145 [facility] Comment on above: Performed By: #### H EMDF, LIPA4, LACTS, CMP3M #### [facility] [address] [place] [address] Complete Urinalysison 2020 Appearance (U) Clear Normal Clear [facility] Comment on above: Result Comment: . Performed By: #### L ACTS #### [facility] [address] [place] [address] Bacteria Few Abnormal Negative [facility] Comment on above: Result Comment: . Performed By: #### L ACTS #### [facility] [address] [place] [address] Bilirubin,Urine Negative Normal Negative [facility] Comment on above: Result Comment: . Performed By: #### L ACTS #### [facility] [address] [place] [address] Color (U) Light-Yellow Normal Lt. Yellow [facility] Comment on above: Result Comment: . Performed By: #### L ACTS #### [facility] [address] [place] [address] Glucose Ql (U) 1,000 mg/dL Abnormal Normal (<70) [facility] Comment on above: Result Comment: . Performed By: #### L ACTS #### [facility] [address] [place] [address] Ketone,Urine Negative Normal Negative [facility] Comment on above: Result Comment: . Performed By: #### L ACTS #### [facility] [address] [place] [address] Leukocytes,Urine 75 Ha/uL Abnormal Negative [facility] Comment on above: Result Comment: . Performed By: #### L ACTS #### [facility] [address] [place] [address] Mucous Threads Few Normal Negative [facility] Comment on above: Result Comment: . Performed By: #### L ACTS #### [facility] [address] [place] [address] Nitrites,Urine Negative Normal Negative [facility] Comment on above: Result Comment: . Performed By: #### L ACTS #### [facility] [address] [place] [address] Occult Blood,Urine Negative Normal Negative [facility] Comment on above: Result Comment: . Performed By: #### L ACTS #### [facility] [address] [place] [address] pH,Urine 5.5 Normal 5.0-8.0 [facility] Comment on above: Result Comment: . Performed By: #### L ACTS #### [facility] [address] [place] [address] Protein (U) [Mass/Vol] 20 mg/dL Abnormal Negative [facility] Comment on above: Result Comment: . Performed By: #### L ACTS #### [facility] [address] [place] [address] RBC, Urine 0 - 2 Normal 0-2 [facility] Comment on above: Result Comment: . Performed By: #### L ACTS #### [facility] [address] [place] [address] [place],Urine 1.010 Normal 1.005 - 1.030 [facility] Comment on above: Result Comment: . Performed By: #### L ACTS #### [facility] [address] [place] [address] Squamous Epithelial 3 - 5 Normal 3-5 [facility] Comment on above: Result Comment: . Performed By: #### L ACTS #### [facility] [address] [place] [address] Urobilinogen,Urine Normal Normal Normal (0-1) [facility] Comment on above: Result Comment: . Performed By: #### L ACTS #### [facility] [address] [place] [address] WBC, Urine 11 - 25 Abnormal 0-5 [facility] Comment on above: Result Comment: . Performed By: #### L ACTS #### [facility] [address] [place] [address] Comprehensive Metabolic Pane [facility] 10-02-2021 Albumin [Mass/Vol] 3.2 g/dL Low 3.5 [...] - 1.25 mg/dL [facility] EGFR IF NonAfrican Gambian 21.9 mL/min Abnormal >60 [facility] Free PSA/Total PSA [Mass fraction] 6.1 g/dL Low 6.3 - 8.2 g/dL [facility] GFR/1.73 sq M.predicted among blacks MDRD (S/P/Bld) [Vol rate/Area] 25.4 mL/min/{1.73_m2} Abnormal >60 [facility] Glucose [Mass/Vol] 476 mg/dL Critically high 70 - 1 00 mg/dL [facility] Interpretation and review of laboratory results Abnormal [facility] Potassium [Moles/Vol] 5.4 mmol/L High 3.5 - 5.1 mmol/L [facility] Sodium [Moles/Vol] 131 mmol/L Low 135 - 145 mmol/L [facility] Urea nitrogen (BldV) [Mass/Vol] 46 mg/dL High 9 - 20 mg/dL [facility] Comprehensive Metabolic Pane l w/ Reflex to MGon 10-02-2021 Albumin [Mass/Vol] 3.5 g/dL 3.5 - 5.0 g/dL [facility] Work Phone: [phone] ALP (Bld) [Catalytic activity/Vol] 140 U/L High 38 - 126 U/L [facility] Work Phone: [phone] ALT [Catalytic activity/Vol] 19 U/L 0 - 34 U/L [facility] Work Phone: Anion gap [Moles/Vol] 7 mmol/L 3 - 13 mmol/L [facility] Work Phone: [phone] AST [Catalytic activity/Vol] 33 U/L 15 - 46 U/L [facility] Work Phone: Bilirubin [Mass/Vol] 0.5 mg/dL 0.2 - 1 .3 mg/dL [facility] Work Phone: Calcium [Mass/Vol] 8.5 mg/dL 8.4 - 10. 4 mg/dL [facility] Work Phone: Chloride [Moles/Vol] 103 mmol/L 98 - 10 7 mmol/L [facility] Work Phone: CO2 [Moles/Vol] 25 mmol/L 22 - 30 mmol/L [facility] Work Phone: [phone] Creatinine [Mass/Vol] 2.31 mg/dL High 0.52 - 1.25 mg/dL [facility] Work Phone: EGFR IF NonAfrican Gambian 21.6 mL/min Abnormal >60 [facility] Work Phone: Free PSA/Total PSA [Mass fraction] 6.8 g/dL 6.3 - 8.2 g/dL [facility] Work Phone: [phone] GFR/1.73 sq M.predicted among blacks MDRD (S/P/Bld) [Vol rate/Area] 25.0 mL/min/{1.73_m2} Abnormal >60 [facility] Work Phone: [phone] Glucose [Mass/Vol] 394 mg/dL High 70 - 100 mg/dL [facility] Work Phone: [phone] Interpretation and review of laboratory results Abnormal [facility] Work Phone: [phone] Potassium [Moles/Vol] 4.7 mmol/L 3.5 - 5.1 mmol/L [facility] Work Phone: [phone] Sodium [Moles/Vol] 135 mmol/L 135 - 145 mmol/L [facility] Work Phone: Urea nitrogen (BldV) [Mass/Vol] 47 mg/dL High 9 - 20 mg/dL [facility] Work Phone: ED Provider Noteon ED Provider Note [facility] EMERGENCY DEPARTMENT ENCOUNTER Pt Name: Kimberly [...] and Family: Not on file ? Attends Faith Services: Not on file ? Active Member [...] Source Pulse Resp SpO2 Height Weight 10/01/21 23510/01/21 2350 10/01/21 23510/01/21 23510/01/21 23510/01/21 23510/01/21235710/01/212349 (!) 143/74 100.4 ?F (38 ?C) Oral 125 18 98 % 5' 4" (1.626 m) 300 lb (136.1 kg) Physical [...] Tomography ACCESSION EXAM DATE/TIME PROCEDURE ORDERING PROVIDER [id number] 10/02/2021 02:[address] Head or Brain w/o QUIQUE ROBERTS Contrast CPT code 66154 Reason For Exam (CT Head or Brain w/o Contrast) change in mental status Report CLINICAL INDICATION: change in mental status COMPARISON: None Technique: Unenhanced [address] images were obtained from skull base to vertex. Images were reformatted in coronal and sagittal projections. Findings (more content not included)... Normal [facility] EKG 12 leadon 10-02-2021 [facility] CARDIOLOGY [facility] Work Phone: EKG 12 leadOrdered By: Suzanna Canela on 10-02-2021 [facility] Work Phone: Glucose,Bedsideon 10-02-2021 Glucose [Mass/Vol] 314 mg/dL High 70-100 [facility] Comment on above: Result Comment: Test performed by glucose meter. Results may be 10%-15% lower than serum/plasma values. (CLIA ID [id number]) Performed By: #### H EMDF, LIPA4, LACTS, CMP3M #### [facility] [address] [place] [address] Hemogram w/ Autodiffon 10-02 Abs Baso Cnt 0.0 10*3/uL Normal 0.0-0.2 [facility] Comment on above: Performed By: #### H EMDF, LIPA4, LACTS, CMP3M #### [facility] [address] [place] [address] Abs Neutrophile Cnt 13.7 10*3/uL High 1.8-7.0 [facility] Comment on above: Performed By: #### H EMDF, LIPA4, LACTS, CMP3M #### [facility] [address] [place] [address] Basophils/100 WBC (Bld) 0.1 % Normal 0.0-2.0 [facility] Comment on above: Performed By: #### H EMDF, LIPA4, LACTS, CMP3M #### [facility] [address] [place] [address] Eosinophils (Bld) [#/Vol] 0.0 10*3/uL Normal 0.0-0.5 [facility] Comment on above: Performed By: #### H EMDF, LIPA4, LACTS, CMP3M #### [facility] [address] [place] [address] Eosinophils/100 WBC (Bld) 0.2 % Low 1.0-6.0 [facility] Comment on above: Performed By: #### H EMDF, LIPA4, LACTS, CMP3M #### [facility] [address] [place] [address] Erythrocyte distribution width (RBC) [Ratio] 16.6 % High 11.5-14.5 [facility] Comment on above: Performed By: #### H EMDF, LIPA4, LACTS, CMP3M #### [facility] [address] [place] [address] Granulocytes/100 WBC (Bld) 96.7 % High 40.0-80.0 [facility] Comment on above: Performed By: #### H EMDF, LIPA4, LACTS, CMP3M #### [facility] [address] [place] [address] Hematocrit (Bld) [Volume fraction] 31.7 % Low 35.0-47.0 [facility] Comment on above: Performed By: #### H EMDF, LIPA4, LACTS, CMP3M #### [facility] [address] [place] [address] Hemoglobin (Bld) [Mass/Vol] 10.3 g/dL Low 11.7-16.0 [facility] Comment on above: Performed By: #### H EMDF, LIPA4, LACTS, CMP3M #### [facility] [address] [place] [address] Lymphocytes (Bld) [#/Vol] 0.2 10*3/uL Low 1.0-4.3 [facility] Comment on above: Performed By: #### H EMDF, LIPA4, LACTS, CMP3M #### [facility] [address] [place] [address] Lymphocytes/100 WBC (Bld) 1.6 % Low 20.0-40.0 [facility] Comment on above: Performed By: #### H EMDF, LIPA4, LACTS, CMP3M #### [facility] [address] [place] [address] MCH (RBC) [Entitic mass] 26.9 pg Normal 26.0-34.0 [facility] Comment on above: Performed By: #### H EMDF, LIPA4, LACTS, CMP3M #### [facility] [address] [place] [address] MCHC 32.4 % Normal 32.0-36.0 [facility] Comment on above: Performed By: #### H EMDF, LIPA4, LACTS, CMP3M #### [facility] [address] [place] [address] MCV (RBC) [Entitic vol] 82.8 fL Normal 79.0-98.0 [facility] Comment on above: Performed By: #### H EMDF, LIPA4, LACTS, CMP3M #### [facility] [address] [place] [address] Monocytes (Bld) [#/Vol] 0.2 10*3/uL Normal 0.0-0.8 [facility] Comment on above: Performed By: #### H EMDF, LIPA4, LACTS, CMP3M #### [facility] [address] [place] [address] Monocytes/100 WBC (Bld) 1.4 % Low 2.0-10.0 [facility] Comment on above: Performed By: #### H EMDF, LIPA4, LACTS, CMP3M #### [facility] [address] [place] [address] Platelet mean volume (Bld) [Entitic vol] 6.7 fL Low 7.4-10.4 [facility] Comment on above: Performed By: #### H EMDF, LIPA4, LACTS, CMP3M #### [facility] [address] [place] [address] Platelets (Bld) [#/Vol] 228 10*3/uL Normal 140-440 [facility] Comment on above: Performed By: #### H EMDF, LIPA4, LACTS, CMP3M #### [facility] [address] [place] [address] RBC (Bld) [#/Vol] 3.83 10*6/uL Normal 3.80-5.20 [facility] Comment on above: Performed By: #### H EMDF, LIPA4, LACTS, CMP3M #### [facility] [address] [place] [address] WBC (Bld) [#/Vol] 14.2 10*3/uL High 3.6-10.7 [facility] Comment on above: Performed By: #### H EMDF, LIPA4, LACTS, CMP3M #### [facility] [address] [place] [address] Lactate, Sepsison 10-02-2021 Lactate [Moles/Vol] 1.8 mmol/L 0.7 - 2. 0 mmol/L [facility] Lactate [Moles/Vol] 2 mmol/L 0.7 - 2. 0 mmol/L [facility] Work Phone: [phone] [facility] Work Phone: [phone] Interpretation and review of laboratory results Abnormal [facility] Work Phone: [phone] Lactate [Moles/Vol] 3.2 mmol/L Critically high 0.7 - 2.0 mmol/L [facility] Work Phone: [phone] [facility] Work Phone: [phone] Lactic Acid, Sepsison 2020 Lactate [Moles/Vol] 1.8 mmol/L Normal 0.7-2.0 [facility] Comment on above: Performed By: #### C MP3M, HEMELLEN, IFF #### [facility] [address] [place] [address] #### PCAL #### [facility] [address] [place] [address] Lactate [Moles/Vol] 2.0 mmol/L Normal 0.7-2.0 [facility] Comment on above: Performed By: #### H EMDF, LIPA4, LACTS, CMP3M #### [facility] [address] [place] [address] Lactate [Moles/Vol] 3.2 mmol/L Critically high 0.7-2.0 [facility] Comment on above: Performed By: #### L ACTS #### [facility] [address] [place] [address] Lipaseon 10-02-2021 Lipase [Catalytic activity/Vol] 134 U/L Normal 23-300 [facility] Comment on above: Performed By: #### H EMDF, LIPA4, LACTS, CMP3M #### [facility] [address] [place] [address] Lipase [Catalytic activity/Vol] 134 U/L 23 - 300 U/L [facility] Work Phone: No Panel Informationon 10-02 [facility] Work Phone: POCT Arterialon 10-02-2021 Base Excess, Arterial -1.0 mmol/L -3.0 - 3.0 mmol/L [facility] CO2 [Moles/Vol] 24.8 mmol/L 23.0 - 27.0 mmol/L [facility] FIO2 Arterial 4 [facility] HCO3 (Bld) [Moles/Vol] 23.6 mmol/L 21.0 - 25.0 mmol/L [facility] Oxygen saturation in Blood 96.7 % 95.0 - 100.0 % [facility] pCO2, Arterial 38.1 mm[Hg] 35.0 - 45.0 mm[Hg] [facility] pH, Arterial 7.400 [facility] pO2, Arterial 86.9 mm[Hg] 80.0 - 100.0 mm[Hg] [facility] POCT Glucoseon 10-02-2021 Glucose [Mass/Vol] 221 mg/dL High 70 - 100 mg/dL [facility] Interpretation and review of laboratory results Abnormal [facility] Glucose [Mass/Vol] 314 mg/dL High 70 - 100 mg/dL [facility] Interpretation and review of laboratory results Abnormal [facility] Procalcitoninon 10-02-2021 Interpretation See Below [facility] Interpretation and review of laboratory results Abnormal [facility] Procalcitonin 75.82 ng/mL High 0.00 - 0.09 ng/mL [facility] Interpretation See Below Normal [facility] Comment on above: Result Comment: PCT <0.50 = Low risk of severe sepsis and/or septic shock. PCT >2.00 = High risk of severe sepsis and/or septic shock. Performed By: #### H EMDF, LIPA4, LACTS, CMP3M #### [facility] [address] [place] [address] SARS-CoV-2, Flu A/B and RSVo n 10-02-2021 SARS-CoV-2 (COVID-19) RNA IGGY+probe Ql (Unsp spec) SARS-CoV-2 --> Status: F Not Detected. Flu A PCR --> Status: F Not Detected. Flu B PCR --> Status: F Not Detected. RSV PCR --> Status: F Not Detected. Expected Result: Not Detected _ Method: Real-time, RT-PCR This assay was developed by [employer] and distributed under an Emergency Use Authorization (EUA) granted by the FDA for the qualitative detection of nucleic acids from SARS-CoV-2, Influenza A, Influenza B, and Respiratory Syncytial Virus. Provider and patient fact sheets can be found at https://www.[facility].gov/med ia/669426/download and https://www.[facility].gov/med ia/511576/download. Expected Result: Not Detected _ Method: Real-time, RT-PCR This assay was developed by [employer] and distributed under an Emergency Use Authorization (EUA) granted by the FDA for the qualitative detection of nucleic acids from SARS-CoV-2, Influenza A, Influenza B, and Respiratory Syncytial Virus. Provider and patient fact sheets can be found at https://www.[facility].gov/med ia/018800/download and https://www.[facility].gov/med ia/763453/download. Normal [facility] Comment on above: Performed By: #### L ACTS #### [facility] [address] [place] [address] Urinalysison 10-02-2021 Appearance (U) Clear Clear NA [facility] Work Phone: 1 Bacteria, UA Few Abnormal Negative /[HPF] [facility] Work Phone: Bilirubin Urine Negative Negative mg/dL [facility] Work Phone: 1 Color (U) Light-Yellow Lt. Yellow NA [facility] Work Phone: 1 Glucose, Ur 1,000 Abnormal Normal (<70) mg/dL [facility] Work Phone: 1 Interpretation and review of laboratory results Abnormal [facility] Work Phone: 1 Ketones Ql (U) Negative Negative mg/dL [facility] Work Phone: 1 LEUKOCYTES, UA 75 Abnormal Negative Ha/uL [facility] Work Phone: 1 Mucous Threads Few Negative /[LPF] [facility] Work Phone: 1 Nitrite, Urine Negative Negative NA [facility] Work Phone: 1 Occult Blood,Urine Negative Negative mg/dL [facility] Work Phone: pH (U) 5.5 [pH] [facility] Work Phone: Protein (U) [Mass/Vol] 20 mg/dL Abnormal Negative [facility] Work Phone: RBC, UA 0-2 0 - 2 /[HPF] [facility] Work Phone: Specific [place], Urine 1.010 S [facility] Work Phone: [phone] Squam Epithel, UA 3-5 3 - 5 /[HPF] [facility] Work Phone: [phone] Urobilinogen, Urine Normal Normal (0-1) mg/dL [facility] Work Phone: [phone] WBC, UA 11-25 Abnormal 0 - 5 /[HPF] [facility] Work Phone: [phone] [facility] Work Phone: XR CHEST PORTABLEon 10-02-20 [facility] Work Phone: [phone] Radiology Study observation (narrative) [facility] Work Phone: [phone] XR CHEST PORTABLEOrdered By: Nataliya Morrow on 10-02-2021 [facility] Work Phone: XR CHEST 1V FRONTALon 2020 XR CHEST 1V FRONTAL Final Report DATE OF EXAM: Nov 29 2020 7:47AM [facility] 5290 - XR CHEST 1V FRONTAL / PROCEDURE REASON: Acute respiratory illness Physician Interpretation EXAMINATION: CHEST RADIOGRAPH (SINGLE VIEW AP OR PA) CLINICAL HISTORY: Acute respiratory illness MQ: [id number] Comparison: Chest x-ray November 27, 2020 RESULT: Lines, tubes, and devices: laboratory monitor leads overlie the thorax Lungs and pleura: No consolidation. No lung mass. No pleural effusion. Cardiomediastinal silhouette: Normal cardiomediastinal silhouette. Other: Osseous structures are unremarkable. IMPRESSION: No acute radiographic abnormality. Social Work Coordinator: SKYLER Transcribe Date/Time: Nov 29 2020 8:05A Dictated by : JANIE THOMAS MD This examination was interpreted and the report reviewed and electronically signed by: JANIE THOMAS MD on Nov 29 2020 8:05AM EST Normal [facility] CT TIB-FIB WO IVCON LTon CT TIB-FIB WO IVCON LT Final Report DATE OF EXAM: Nov 28 2020 4:47PM [facility] 0092 - CT TIB-FIB WO [...] both knees is likely due to osteoarthritis. Social Work Coordinator: SKYLER Transcribe Date/Time: Nov 28 2020 9:48P Dictated by : CARMEN GERBER MD This examination was interpreted and the report reviewed and electronically signed by: CARMEN GERBER MD on Nov 28 2020 10:07PM EST Normal [facility] CT TIB-FIB WO IVCON RTon CT TIB-FIB WO IVCON RT Final Report DATE OF EXAM: Nov 28 2020 4:47PM [facility] 0093 - CT TIB-FIB WO [...] both knees is likely due to osteoarthritis. Social Work Coordinator: SKYLER Transcribe Date/Time: Nov 28 2020 9:48P Dictated by : CARMEN GERBER MD This examination was interpreted and the report reviewed and electronically signed by: CARMEN GERBER MD on Nov 28 2020 10:07PM EST Normal [facility] XR CHEST 1V FRONTALon 2020 XR CHEST 1V FRONTAL Final Report DATE OF EXAM: Nov 27 2020 11:08PM [facility] 5290 - XR CHEST 1V FRONTAL / [...] vascular congestion with viral pneumonitis not excluded. Social Work Coordinator: SKYLER Transcribe Date/Time: Nov 27 2020 11:51P Dictated by : JALEN GARCIA MD This examination was interpreted and the report reviewed and electronically signed by: JALEN GARCIA MD on Nov 27 2020 11:54PM EST Normal [facility] CT BRAIN WO IVCONon 11-22-[address] BRAIN WO IVCON Final Report DATE OF EXAM: Nov 22 2020 5:44PM [facility] 0504 - CT BRAIN WO IVCON / PROCEDURE REASON: Head trauma, minor, pt on anticoagulation Physician Interpretation EXAMINATION: CT BRAIN WO IVCON, CT CERVICAL SPINE WO IVCON CLINICAL HISTORY: Head trauma, minor, pt on anticoagulation (accession [id number]), C-spine fx, traumatic (accession [id number]) TECHNIQUE: Serial axial images without IV contrast [...] base and imaged soft tissues are unremarkable. Shift Commander (topogram) images: No additional findings. EXAMINATION: CT BRAIN WO IVCON, CT CERVICAL SPINE WO IVCON CLINICAL HISTORY: Head trauma, minor, pt on anticoagulation (accession [id number]), C-spine fx, traumatic (accession [id number]) TECHNIQUE: CT of the cervical spine without [...] Counting reference: Craniocervical junction. Anatomic Variants: None. Shift Commander (topogram) images: No additional findings. Alignment: Alignment [...] vertebrae with counting from the craniocervical junction. Social Work Coordinator: [facility] Transcribe Date/Time: Nov 22 2020 5:48P Dictated by : QUIQUE CORRAL MD This examination was interpreted and the report reviewed and electronically signed by: QUIQUE CORRAL MD on Nov 22 2020 6:02PM EST Normal [facility] CT CERVICAL SPINE WO IVCONon 11-22-2020 CT CERVICAL SPINE WO IVCON Final Report DATE OF EXAM: Nov 22 2020 5:44PM [facility] 0505 - CT CERVICAL SPINE WO IVCON / PROCEDURE REASON: C-spine fx, traumatic Physician Interpretation EXAMINATION: CT BRAIN WO IVCON, CT CERVICAL SPINE WO IVCON CLINICAL HISTORY: Head trauma, minor, pt on anticoagulation (accession [id number]), C-spine fx, traumatic (accession [id number]) TECHNIQUE: Serial axial images without IV contrast [...] base and imaged soft tissues are unremarkable. Shift Commander (topogram) images: No additional findings. EXAMINATION: CT BRAIN WO IVCON, CT CERVICAL SPINE WO IVCON CLINICAL HISTORY: Head trauma, minor, pt on anticoagulation (accession [id number]), C-spine fx, traumatic (accession [id number]) TECHNIQUE: CT of the cervical spine without [...] Counting reference: Craniocervical junction. Anatomic Variants: None. Shift Commander (topogram) images: No additional findings. Alignment: Alignment [...] vertebrae with counting from the craniocervical junction. Social Work Coordinator: [facility] Transcribe Date/Time: Nov 22 2020 5:48P Dictated by : QUIQUE CORRAL MD This examination was interpreted and the report reviewed and electronically signed by: QUIQUE CORRAL MD on Nov 22 2020 6:02PM EST Normal [employer] XR CHEST 1V FRONTALon 2019 XR CHEST [...] significant pleural effusion. 3. Coronary artery calcifications. Social Work Coordinator: [facility] Transcribe Date/Time: Oct 13 2020 3:35P Dictated by : SCOTT OTERO MD This examination was interpreted and the report reviewed and electronically signed by: SCOTT OTERO MD on Oct 13 2020 3:38PM EST Normal [employer] XR CHEST 1V FRONTALon 2019 XR CHEST [...] technique. Other: IMPRESSION: No acute radiographic abnormality. Social Work Coordinator: SKYLER Transcribe Date/Time: Oct 10 2020 5:20P Dictated by : CARMEN GERBER MD This examination was interpreted and the report reviewed and electronically signed by: CARMEN GERBER MD on Oct 10 2020 5:25PM EST Normal [facility] CBC W/DIFFon 04-12-2020 BASO ABS 0.00 K/CU MM Normal 0-0.2 [facility] Comment on above: Performed By: #### L 500.82820, L500.55365, L500.89960, L500.32400, L500.24361 #### [facility] [address] [place] [address] Basophils/100 WBC (Bld) 0.3 % Normal 0-2 M [facility] Comment on above: Performed By: #### L 500.56696, L500.32603, L500.86726, L500.70985, L500.29218 #### [facility] [address] [place] [address] EOS ABS 0.20 K/CU MM Normal 0-0.5 [facility] Comment on above: Performed By: #### L 500.68745, L500.43307, L500.82774, L500.59069, L500.52264 #### [facility] [address] [place] [address] Eosinophils/100 WBC (Bld) 2.3 % Normal 0-5 [facility] Comment on above: Performed By: #### L 500.53494, L500.39363, L500.94584, L500.72961, L500.43142 #### [facility] [address] [place] [address] Erythrocyte distribution width (RBC) [Ratio] 18.8 % High 11-14.5 [facility] Comment on above: Performed By: #### L 500.29276, L500.73586, L500.34817, L500.50857, L500.02389 #### [facility] [address] [place] [address] Hematocrit (Bld) [Volume fraction] 35.0 % Normal 35.0-47.0 [facility] Comment on above: Performed By: #### L 500.26230, L500.66897, L500.49212, L500.59286, L500.31037 #### [facility] [address] [place] [address] Hemoglobin (Bld) [Mass/Vol] 9.7 g/dL Low 11.5-15.5 [facility] Comment on above: Performed By: #### L 500.54634, L500.54813, L500.14832, L500.25253, L500.60350 #### [facility] [address] [place] [address] IMMATR GRAN ABS 0.10 K/CU MM Normal Less than 2 [facility] Comment on above: Performed By: #### L 500.83344, L500.32049, L500.77642, L500.58883, L500.42745 #### [facility] [address] [place] [address] IMMATURE GRAN % 1.4 % Normal Less than 2 [facility] Comment on above: Performed By: #### L 500.63018, L500.72761, L500.96324, L500.00362, L500.62561 #### [facility] [address] [place] [address] Lymphocytes (Bld) [#/Vol] 1.30 K/CU MM Normal 0.9-4.4 [facility] Comment on above: Performed By: #### L 500.14915, L500.94419, L500.23314, L500.99007, L500.53279 #### [facility] [address] [place] [address] Lymphocytes/100 WBC (Bld) 15.5 % Low 20-40 [facility] Comment on above: Performed By: #### L 500.52845, L500.09374, L500.74675, L500.47135, L500.73114 #### [facility] [address] [place] [address] MCHC (RBC) [Mass/Vol] 27.7 g/dL Low 32.0-36.0 [facility] Comment on above: Performed By: #### L 500.78032, L500.32188, L500.96020, L500.34627, L500.78987 #### [facility] [address] [place] [address] MCV (RBC) [Entitic vol] 84.7 fL Normal 80.0-99.0 M [facility] Comment on above: Performed By: #### L 500.21665, L500.16487, L500.25993, L500.95644, L500.01876 #### [facility] [address] [place] [address] MONO ABS 0.50 K/CU MM Normal 0.1-1.1 [facility] Comment on above: Performed By: #### L 500.02573, L500.47788, L500.62637, L500.12641, L500.74117 #### [facility] [address] [place] [address] Monocytes/100 WBC (Bld) 6.0 % Normal 2-10 M [facility] Comment on above: Performed By: #### L 500.25236, L500.29722, L500.08425, L500.60661, L500.13405 #### [facility] [address] [place] [address] NEUTROPHIL ABS 6.40 K/CU MM Normal 2.0-8.3 [facility] Comment on above: Performed By: #### L 500.75394, L500.11713, L500.46091, L500.22314, L500.31401 #### [facility] [address] [place] [address] Neutrophils/100 WBC (Bld) 74.5 % Normal 45-75 [facility] Comment on above: Performed By: #### L 500.77217, L500.27123, L500.22530, L500.34588, L500.63370 #### [facility] [address] [place] [address] Nucleated RBC/100 WBC (Bld) [Ratio] 0.0 % Normal Less than 1 [facility] Comment on above: Performed By: #### L 500.64543, L500.52753, L500.21920, L500.76099, L500.54144 #### [facility] [address] [place] [address] Platelet mean volume (Bld) [Entitic vol] 8.7 fL Low 9.4-12.4 [facility] Comment on above: Performed By: #### L 500.88454, L500.69283, L500.64575, L500.65704, L500.70055 #### [facility] [address] [place] [address] Platelets (Bld) [#/Vol] 339 K/CU MM Normal 150-450 [facility] Comment on above: Performed By: #### L 500.36261, L500.72681, L500.24514, L500.56685, L500.99950 #### [facility] [address] [place] [address] RBC (Bld) [#/Vol] 4.13 M/CU MM Normal 3.90-5.30 [facility] Comment on above: Performed By: #### L 500.18553, L500.00270, L500.15418, L500.15163, L500.76293 #### [facility] [address] [place] [address] WBC (Bld) [#/Vol] 8.6 K/CUMM Normal 4.5-11.0 [facility] Comment on above: Performed By: #### L 500.41492, L500.51879, L500.09024, L500.22001, L500.59425 #### [facility] [address] [place] [address] [facility] Albumin [Mass/Vol] 3.4 g/dL Normal 3.2-5.0 [facility] Comment on above: Performed By: #### L 500.19113, L500.15976, L500.44989, L500.64614, L500.64455 #### [facility] [address] [place], [place] [address] Albumin/Globulin [Mass ratio] 0.9 {ratio} Normal 0.8-2.0 [facility] Comment on above: Performed By: #### L 500.10936, L500.28003, L500.60620, L500.63040, L500.00197 #### [facility] [address] [place], [place] [address] ALK PHOS 90 U/L Normal 45-117 [facility] Comment on above: Performed By: #### L 500.00579, L500.49276, L500.80491, L500.99649, L500.18995 #### [facility] [place] [address] ALT [Catalytic activity/Vol] 21 U/L Normal 13-61 [facility] Comment on above: Result Comment: RESU LTS MAY BE FALSELY DEPRESSED AFTER THE ADMINISTRATION OF SULFASALAZINE AND/OR SULFAPYRIDINE. Performed By: #### L 500.33117, L500.35029, L500.62289, L500.67756, L500.93883 #### [facility] [address] [place] [address] Anion gap [Moles/Vol] 9 mmol/L Normal 5-16 [facility] Comment on above: Performed By: #### L 500.92823, L500.38764, L500.39729, L500.23761, L500.51805 #### [facility] [address] [place] [address] BILI TOTAL 0.5 MG/DL Normal 0.2-1.0 [facility] Comment on above: Performed By: #### L 500.35414, L500.79836, L500.75618, L500.96253, L500.08982 #### [facility] [address] [place] [address] Calcium [Mass/Vol] 9.0 mg/dL Normal 8.5-10.1 [facility] Comment on above: Performed By: #### L 500.53629, L500.44372, L500.74640, L500.19737, L500.08418 #### [facility] [address] [place] [address] Chloride [Moles/Vol] 98 mmol/L Normal 98-107 [facility] Comment on above: Performed By: #### L 500.26820, L500.92456, L500.58929, L500.94028, L500.06040 #### [facility] [place] [address] CO2 [Moles/Vol] 30 mmol/L Normal 21-32 [facility] Comment on above: Performed By: #### L 500.43631, L500.76522, L500.94336, L500.88084, L500.79312 #### [facility] [address] [place] [address] Creatinine [Mass/Vol] 1.110 mg/dL High 0.510-0.950 M [facility] Comment on above: Result Comment: Brendon ents receiving either N-Acetylcysteine (NAC) or Metamizole prior to venipuncture, may have falsely depressed results. Performed By: #### L 500.80130, L500.44138, L500.03180, L500.06951, L500.58396 #### [facility] [address] [place] [address] Globulin (S) [Mass/Vol] 3.7 g/dL Normal 2.2-4.2 [facility] Comment on above: Performed By: #### L 500.81294, L500.09674, L500.09644, L500.87952, L500.24297 #### [facility] [address] [place] [address] Glucose [Mass/Vol] 183 mg/dL High 70-100 [facility] Comment on above: Result Comment: 70-1 00- Normal Fasting; 100-125 Impaired Fasting; greater than 126 on more than one result- Diabetes. ADA guidelines. Results may be falsely elevated after the administration of Sulfapyridine. Results may be falsely depressed after the administration of Sulfasalazine. Performed By: #### L 500.81533, L500.04125, L500.21319, L500.76871, L500.53472 #### [facility] [address] [place] [address] Potassium [Moles/Vol] 4.1 mmol/L Normal 3.5-5.1 [facility] Comment on above: Performed By: #### L 500.44047, L500.28108, L500.66715, L500.94220, L500.25316 #### [facility] [place] [address] Protein [Mass/Vol] 7.1 g/dL Normal 6.0-8.5 [facility] Comment on above: Performed By: #### L 500.77412, L500.31754, L500.38793, L500.78144, L500.81496 #### [facility] [address] [place] [address] SGOT (AST) 10 U/L Normal 8-34 [facility] Comment on above: Result Comment: RESU LTS MAY BE FALSELY DEPRESSED AFTER THE ADMINISTRATION OF SULFASALAZINE AND/OR SULFAPYRIDINE. Performed By: #### L 500.91622, L500.08391, L500.90662, L500.66626, L500.48473 #### [facility] [address] [place] [address] Sodium [Moles/Vol] 137 mmol/L Normal 136-145 [facility] Comment on above: Performed By: #### L 500.60491, L500.30378, L500.62183, L500.82325, L500.20897 #### [facility] [address] [place], [place] [address] Urea nitrogen [Mass/Vol] 31 mg/dL High 7-26 [facility] Comment on above: Performed By: #### L 500.98597, L500.70044, L500.31594, L500.15796, L500.74367 #### [facility] [address] [place], [place] [address] Urea nitrogen/Creatinine [Mass ratio] 28 mg/mg High 15-24 [facility] Comment on above: Performed By: #### L 500.35051, L500.22448, L500.11714, L500.46331, L500.10732 #### [facility] [place] [address] GFR ESTon 04-12-2020 IF AMER 60 ML/MIN Normal [facility] Comment on above: Performed By: #### L 500.47688, L500.03595, L500.06021, L500.24121, L500.81269 #### [facility] [address] [place] [address] IF non-AFR AMER 50 ML/MIN Normal [facility] Comment on above: Performed By: #### L 500.31988, L500.52207, L500.01592, L500.83960, L500.93571 #### [facility] [address] [place] [address] HGB A1C GLYCOHBon 04-12-2020 HbA1c (Bld) [Mass fraction] 8.3 % High 4.3-6.0 [facility] Comment on above: Performed By: #### L 500.24153, L500.95043, L500.26758, L500.72904, L500.63745 #### [facility] [address] [place], [place] [address] LIPIDon 04-12-2020 Cholesterol [Mass/Vol] 190 mg/dL Normal 0-199 [facility] Comment on above: Performed By: #### L 500.57960, L500.85558, L500.86951, L500.75408, L500.13293 #### [facility] [place] [address] Cholesterol in HDL [Mass/Vol] 47 mg/dL Normal [place] 40 [facility] Comment on above: Result Comment: Brnedon ents receiving Metamizole prior to venipuncture, may have falsely depressed results. Performed By: #### L 500.25532, L500.97188, L500.11880, L500.63524, L500.88119 #### [facility] [address] [place] [address] Cholesterol in LDL [Mass/Vol] 92 mg/dL Normal 0-129 [facility] Comment on above: Result Comment: ___C HOLESTEROL/HDL RATIO RISK___ CHD RISK = Total CHOL LDL HDL (CHOL/HDL) Recommended <200 <130 >40 <3.4 Borderline 200-239 130-159 3.4-4.99 High >240 >160 >5.0 Performed By: #### L 500.23444, L500.64093, L500.55199, L500.46889, L500.60094 #### [facility] [address] [place] [address] Triglyceride [Mass/Vol] 256 mg/dL High 30-149 M [facility] Comment on above: Result Comment: Brendon ents receiving either N-Acetylcysteine (NAC) or Metamizole prior to venipuncture, may have falsely depressed results. Performed By: #### L 500.93053, L500.97522, L500.48266, L500.00786, L500.41411 #### [facility] [address] [place] [address] .Auto Diffon 02-24-2020 Ammonia (P) [Mass/Vol] 0.90 10 3/mcL Normal 0.09-1.40 [facility] ([place]) Comment on above: Performed By: #### C AION, MG, TROPI, PHOS, CMP, PBNP, GFR, TSH, CBC, DIFF, MORPH #### [address] [address] Basophils (Bld) [#/Vol] 0.10 10 3/mcL Normal 0.00-0.27 [facility] ([place]) Comment on above: Performed By: #### C AION, MG, TROPI, PHOS, CMP, PBNP, GFR, TSH, CBC, DIFF, MORPH #### [address] [address] Basophils/100 WBC (Bld) 0.6 % Normal 0.0-2.5 A [facility] ([place]) Comment on above: Performed By: #### C AION, MG, TROPI, PHOS, CMP, PBNP, GFR, TSH, CBC, DIFF, MORPH #### [address] [address] Eosinophils (Bld) [#/Vol] 0.60 10 3/mcL Normal 0.00-0.65 [facility] ([place]) Comment on above: Performed By: #### C AION, MG, TROPI, PHOS, CMP, PBNP, GFR, TSH, CBC, DIFF, MORPH #### [address] [address] Eosinophils/100 WBC (Bld) 6.7 % High 0.0-6.0 [facility] ([place]) Comment on above: Performed By: #### C AION, MG, TROPI, PHOS, CMP, PBNP, GFR, TSH, CBC, DIFF, MORPH #### [address] [address] Lymphocytes (Bld) [#/Vol] 1.70 10 3/mcL Normal 0.90-4.32 [facility] ([place]) Comment on above: Performed By: #### C AION, MG, TROPI, PHOS, CMP, PBNP, GFR, TSH, CBC, DIFF, MORPH #### [address] [address] Lymphocytes/100 WBC (Bld) 19.2 % Low 20.0-40.0 [facility] ([place]) Comment on above: Performed By: #### C AION, MG, TROPI, PHOS, CMP, PBNP, GFR, TSH, CBC, DIFF, MORPH #### [address] [address] Monocytes/100 WBC (Bld) 10.0 % Normal 2.0-13.0 A [facility] ([place]) Comment on above: Performed By: #### C AION, MG, TROPI, PHOS, CMP, PBNP, GFR, TSH, CBC, DIFF, MORPH #### [address] [address] Neutrophils/100 WBC (Bld) 63.5 % Normal 50.0-75.0 [facility] ([place]) Comment on above: Performed By: #### C AION, MG, TROPI, PHOS, CMP, PBNP, GFR, TSH, CBC, DIFF, MORPH #### [address] [address] .GFRon 02-24-2020 GFR Non- 41 ml/min/1.73sqm Normal [facility] ([place]) Comment on above: Result Comment: GFR Population [...] PBNP, GFR, TSH, CBC, DIFF, MORPH #### [address] [address] GFR 49 ml/min/1.73sqm Normal [facility] ([place]) Comment on above: Result Comment: GFR Population [...] PBNP, GFR, TSH, CBC, DIFF, MORPH #### [address] [address] .NEUABSon 02-24-2020 Neutrophils (Bld) [#/Vol] 5.50 10 3/mcL Normal 2.25-8.10 [facility] ([place]) Comment on above: Performed By: #### C AION, MG, TROPI, PHOS, CMP, PBNP, GFR, TSH, CBC, DIFF, MORPH #### [address] [address] BMPon 02-24-2020 Creatinine [Mass/Vol] 1.32 mg/dL High 0.50-1.20 [facility] Comment on above: Performed By: #### C AION, MG, TROPI, PHOS, CMP, PBNP, GFR, TSH, CBC, DIFF, MORPH #### [address] [address] Urea nitrogen/Creatinine [Mass ratio] 18.2 ratio Normal 10.0-22.0 [facility] ([place]) Comment on above: Performed By: #### C AION, MG, TROPI, PHOS, CMP, PBNP, GFR, TSH, CBC, DIFF, MORPH #### [address] [address] Calcium [Mass/Vol] 8.2 mg/dL Low 8.4-10.1 [facility] ([place]) Comment on above: Performed By: #### C AION, MG, TROPI, PHOS, CMP, PBNP, GFR, TSH, CBC, DIFF, MORPH #### [address] [address] Chloride [Moles/Vol] 100 mmol/L Normal 98-110 [facility] ([place]) Comment on above: Performed By: #### C AION, MG, TROPI, PHOS, CMP, PBNP, GFR, TSH, CBC, DIFF, MORPH #### [address] [address] CO2 [Moles/Vol] 30 mmol/L Normal 22-32 [facility] ([place]) Comment on above: Performed By: #### C AION, MG, TROPI, PHOS, CMP, PBNP, GFR, TSH, CBC, DIFF, MORPH #### [address] [address] Electrolyte Balance 7.0 mEq/L Normal 4.0-15.0 [facility] ([place]) Comment on above: Performed By: #### C AION, MG, TROPI, PHOS, CMP, PBNP, GFR, TSH, CBC, DIFF, MORPH #### [address] [address] Glucose [Mass/Vol] 190 mg/dL High 82-115 [facility] ([place]) Comment on above: Performed By: #### C AION, MG, TROPI, PHOS, CMP, PBNP, GFR, TSH, CBC, DIFF, MORPH #### [address] [address] Potassium [Moles/Vol] 4.4 mmol/L Normal 3.5-5.0 [facility] [place] Comment on above: Performed By: #### C AION, MG, TROPI, PHOS, CMP, PBNP, GFR, TSH, CBC, DIFF, MORPH #### [place] [phone] Sodium [Moles/Vol] 137 mmol/L Normal 136-145 [facility] ([place]) Comment on above: Performed By: #### C AION, MG, TROPI, PHOS, CMP, PBNP, GFR, TSH, CBC, DIFF, MORPH #### [place] [phone] Urea nitrogen [Mass/Vol] 24.0 mg/dL High 8.0-22.0 [facility] ([place]) Comment on above: Performed By: #### C AION, MG, TROPI, PHOS, CMP, PBNP, GFR, TSH, CBC, DIFF, MORPH #### [place] [phone] CBCon 02-24-2020 Erythrocyte distribution width (RBC) [Ratio] 20.3 % High 11.5-15.5 [facility] ([place]) Comment on above: Performed By: #### C AION, MG, TROPI, PHOS, CMP, PBNP, GFR, TSH, CBC, DIFF, MORPH #### [place] [phone] Hematocrit (Bld) [Volume fraction] 30.1 % Low 34.0-46.0 [facility] ([place]) Comment on above: Performed By: #### C AION, MG, TROPI, PHOS, CMP, PBNP, GFR, TSH, CBC, DIFF, MORPH #### [place] [phone] Hemoglobin (Bld) [Mass/Vol] 9.3 G/dL Low 12.0-16.0 [facility] ([place]) Comment on above: Performed By: #### C AION, MG, TROPI, PHOS, CMP, PBNP, GFR, TSH, CBC, DIFF, MORPH #### [address] [address] MCH (RBC) [Entitic mass] 24.0 pg Low 27.0-33.0 [facility] ([place]) Comment on above: Performed By: #### C AION, MG, TROPI, PHOS, CMP, PBNP, GFR, TSH, CBC, DIFF, MORPH #### [address] [address] MCHC (RBC) [Mass/Vol] 31.0 G/dL Low 32.0-36.0 [facility] [place] Comment on above: Performed By: #### C AION, MG, TROPI, PHOS, CMP, PBNP, GFR, TSH, CBC, DIFF, MORPH #### [place] [phone] MCV (RBC) [Entitic vol] 77.4 fL Low 80.0-99.0 A [facility] ([place]) Comment on above: Performed By: #### C AION, MG, TROPI, PHOS, CMP, PBNP, GFR, TSH, CBC, DIFF, MORPH #### [address] [address] Platelet mean volume (Bld) [Entitic vol] 6.6 fL Normal 6.6-10.5 [facility] ([place]) Comment on above: Performed By: #### C AION, MG, TROPI, PHOS, CMP, PBNP, GFR, TSH, CBC, DIFF, MORPH #### [address] [address] Platelets (Bld) [#/Vol] 434 10 3/mcL Normal 150-450 [facility] ([place]) Comment on above: Performed By: #### C AION, MG, TROPI, PHOS, CMP, PBNP, GFR, TSH, CBC, DIFF, MORPH #### [address] [address] RBC (Bld) [#/Vol] 3.88 10 6/mcL Low 4.10-5.30 [facility] ([place]) Comment on above: Performed By: #### C AION, MG, TROPI, PHOS, CMP, PBNP, GFR, TSH, CBC, DIFF, MORPH #### [address] [address] WBC (Bld) [#/Vol] 8.70 10 3/mcL Normal 4.50-10.80 [facility] ([place]) Comment on above: Performed By: #### C AION, MG, TROPI, PHOS, CMP, PBNP, GFR, TSH, CBC, DIFF, MORPH #### [address] [address] OCC (LAB)on 02-24-2020 Occult Blood Fecal Negative Normal Negative [facility] ([place]) Comment on above: Result Comment: This test utilizes the guaiac fecal blood method, which detects peroxidase activity (heme) indicating bleeding from stomach, small intestine, or large intestine. If bleeding from either upper or lower gastrointestinal tract is a clinical consideration, the [facility] recommends the use of both the guaiac fecal blood test and the Immunochemical fecal blood test. Performed By: #### C AION, MG, TROPI, PHOS, CMP, PBNP, GFR, TSH, CBC, DIFF, MORPH #### [address] [address] .Auto Diffon 02-23-2020 Ammonia (P) [Mass/Vol] 0.70 10 3/mcL Normal 0.09-1.40 [facility] ([place]) Comment on above: Performed By: #### C AION, MG, TROPI, PHOS, CMP, PBNP, GFR, TSH, CBC, DIFF, MORPH #### [address] [address] Basophils (Bld) [#/Vol] 0.00 10 3/mcL Normal 0.00-0.27 [facility] ([place]) Comment on above: Performed By: #### C AION, MG, TROPI, PHOS, CMP, PBNP, GFR, TSH, CBC, DIFF, MORPH #### [address] [address] Basophils/100 WBC (Bld) 0.4 % Normal 0.0-2.5 A [facility] ([place]) Comment on above: Performed By: #### C AION, MG, TROPI, PHOS, CMP, PBNP, GFR, TSH, CBC, DIFF, MORPH #### [address] [address] Eosinophils (Bld) [#/Vol] 0.50 10 3/mcL Normal 0.00-0.65 [facility] ([place]) Comment on above: Performed By: #### C AION, MG, TROPI, PHOS, CMP, PBNP, GFR, TSH, CBC, DIFF, MORPH #### [address] [address] Eosinophils/100 WBC (Bld) 7.7 % High 0.0-6.0 [facility] ([place]) Comment on above: Performed By: #### C AION, MG, TROPI, PHOS, CMP, PBNP, GFR, TSH, CBC, DIFF, MORPH #### [address] [address] Lymphocytes (Bld) [#/Vol] 1.40 10 3/mcL Normal 0.90-4.32 [facility] ([place]) Comment on above: Performed By: #### C AION, MG, TROPI, PHOS, CMP, PBNP, GFR, TSH, CBC, DIFF, MORPH #### [address] [address] Lymphocytes/100 WBC (Bld) 19.6 % Low 20.0-40.0 [facility] ([place]) Comment on above: Performed By: #### C AION, MG, TROPI, PHOS, CMP, PBNP, GFR, TSH, CBC, DIFF, MORPH #### [address] [address] Monocytes/100 WBC (Bld) 9.6 % Normal 2.0-13.0 A [facility] ([place]) Comment on above: Performed By: #### C AION, MG, TROPI, PHOS, CMP, PBNP, GFR, TSH, CBC, DIFF, MORPH #### [address] [address] Neutrophils/100 WBC (Bld) 62.7 % Normal 50.0-75.0 [facility] ([place]) Comment on above: Performed By: #### C AION, MG, TROPI, PHOS, CMP, PBNP, GFR, TSH, CBC, DIFF, MORPH #### [address] [address] .GFRon 02-23-2020 GFR >60 Normal [facility] ([place]) Comment on above: Result Comment: GFR Population [...] mL/min/1.73 square meters Performed By: #### C VAL, MG, TROPI, PHOS, CMP, PBNP, GFR, TSH, CBC, DIFF, MORPH #### [address] [address] GFR Non- 55 ml/min/1.73sqm Normal [facility] ([place]) Comment on above: Result Comment: GFR Population [...] PBNP, GFR, TSH, CBC, DIFF, MORPH #### [place] [address] .NEUABSon 02-23-2020 Neutrophils (Bld) [#/Vol] 4.40 10 3/mcL Normal 2.25-8.10 [facility] ([place]) Comment on above: Performed By: #### C AION, MG, TROPI, PHOS, CMP, PBNP, GFR, TSH, CBC, DIFF, MORPH #### [place] [address] BMPon 02-23-2020 Calcium [Mass/Vol] 8.0 mg/dL Low 8.4-10.1 [facility] ([place]) Comment on above: Performed By: #### C AION, MG, TROPI, PHOS, CMP, PBNP, GFR, TSH, CBC, DIFF, MORPH #### [place] [address] CO2 [Moles/Vol] 31 mmol/L Normal 22-32 [facility] ([place]) Comment on above: Performed By: #### C AION, MG, TROPI, PHOS, CMP, PBNP, GFR, TSH, CBC, DIFF, MORPH #### [place] [address] Creatinine [Mass/Vol] 1.02 mg/dL Normal 0.50-1.20 [facility] [place] Comment on above: Performed By: #### C AION, MG, TROPI, PHOS, CMP, PBNP, GFR, TSH, CBC, DIFF, MORPH #### [place] [address] Electrolyte Balance 7.0 mEq/L Normal 4.0-15.0 [facility] ([place]) Comment on above: Performed By: #### C AION, MG, TROPI, PHOS, CMP, PBNP, GFR, TSH, CBC, DIFF, MORPH #### [place] [address] Glucose [Mass/Vol] 162 mg/dL High 82-115 [facility] ([place]) Comment on above: Performed By: #### C AION, MG, TROPI, PHOS, CMP, PBNP, GFR, TSH, CBC, DIFF, MORPH #### [address] [address] Potassium [Moles/Vol] 4.2 mmol/L Normal 3.5-5.0 [facility] [place] Comment on above: Performed By: #### C AION, MG, TROPI, PHOS, CMP, PBNP, GFR, TSH, CBC, DIFF, MORPH #### [address] [address] Urea nitrogen [Mass/Vol] 15.0 mg/dL Normal 8.0-22.0 [facility] ([place]) Comment on above: Performed By: #### C AION, MG, TROPI, PHOS, CMP, PBNP, GFR, TSH, CBC, DIFF, MORPH #### [place] [phone] Urea nitrogen/Creatinine [Mass ratio] 14.7 ratio Normal 10.0-22.0 [facility] ([place]) Comment on above: Performed By: #### C AION, MG, TROPI, PHOS, CMP, PBNP, GFR, TSH, CBC, DIFF, MORPH #### [address] [address] Chloride [Moles/Vol] 101 mmol/L Normal 98-110 [facility] ([place]) Comment on above: Performed By: #### C AION, MG, TROPI, PHOS, CMP, PBNP, GFR, TSH, CBC, DIFF, MORPH #### [address] [address] Sodium [Moles/Vol] 139 mmol/L Normal 136-145 [facility] ([place]) Comment on above: Performed By: #### C AION, MG, TROPI, PHOS, CMP, PBNP, GFR, TSH, CBC, DIFF, MORPH #### [address] [address] CBCon 02-23-2020 WBC (Bld) [#/Vol] 7.00 10 3/mcL Normal 4.50-10.80 [facility] ([place]) Comment on above: Result Comment: Capi llary or microtainer specimen received. Performed By: #### C AION, MG, TROPI, PHOS, CMP, PBNP, GFR, TSH, CBC, DIFF, MORPH #### [place] [phone] Erythrocyte distribution width (RBC) [Ratio] 20.0 % High 11.5-15.5 [facility] ([place]) Comment on above: Performed By: #### C AION, MG, TROPI, PHOS, CMP, PBNP, GFR, TSH, CBC, DIFF, MORPH #### [place] [phone] Hematocrit (Bld) [Volume fraction] 29.0 % Low 34.0-46.0 [facility] ([place]) Comment on above: Performed By: #### C AION, MG, TROPI, PHOS, CMP, PBNP, GFR, TSH, CBC, DIFF, MORPH #### [place] [phone] Hemoglobin (Bld) [Mass/Vol] 9.0 G/dL Low 12.0-16.0 [facility] ([place]) Comment on above: Performed By: #### C AION, MG, TROPI, PHOS, CMP, PBNP, GFR, TSH, CBC, DIFF, MORPH #### [place] [phone] MCH (RBC) [Entitic mass] 23.6 pg Low 27.0-33.0 [facility] ([place]) Comment on above: Performed By: #### C AION, MG, TROPI, PHOS, CMP, PBNP, GFR, TSH, CBC, DIFF, MORPH #### [address] [address] MCHC (RBC) [Mass/Vol] 31.2 G/dL Low 32.0-36.0 [facility] Comment on above: Performed By: #### C AION, MG, TROPI, PHOS, CMP, PBNP, GFR, TSH, CBC, DIFF, MORPH #### [place] [address] MCV (RBC) [Entitic vol] 75.7 fL Low 80.0-99.0 A [facility] ([place]) Comment on above: Performed By: #### C AION, MG, TROPI, PHOS, CMP, PBNP, GFR, TSH, CBC, DIFF, MORPH #### [place] [address] Platelet mean volume (Bld) [Entitic vol] 6.3 fL Low 6.6-10.5 [facility] ([place]) Comment on above: Performed By: #### C AION, MG, TROPI, PHOS, CMP, PBNP, GFR, TSH, CBC, DIFF, MORPH #### [place] [address] Platelets (Bld) [#/Vol] 438 10 3/mcL Normal 150-450 [facility] ([place]) Comment on above: Performed By: #### C AION, MG, TROPI, PHOS, CMP, PBNP, GFR, TSH, CBC, DIFF, MORPH #### [place] [address] RBC (Bld) [#/Vol] 3.83 10 6/mcL Low 4.10-5.30 [facility] ([place]) Comment on above: Performed By: #### C AION, MG, TROPI, PHOS, CMP, PBNP, GFR, TSH, CBC, DIFF, MORPH #### [place] [address] CURon 02-23-2020 CUR . MICRO - Microbiology [...] Locations *1: This test was performed at: [facility], [address] [place] [address], [address] [place] [address] ([place]) Comment on above: Performed By: #### C AION, MG, TROPI, PHOS, CMP, PBNP, GFR, TSH, CBC, DIFF, MORPH #### [address] [address] .Auto Diffon 02-22-2020 Ammonia (P) [Mass/Vol] 0.70 10 3/mcL Normal 0.09-1.40 [facility] ([place]) Comment on above: Performed By: #### C AION, MG, TROPI, PHOS, CMP, PBNP, GFR, TSH, CBC, DIFF, MORPH #### [address] [address] Basophils (Bld) [#/Vol] 0.00 10 3/mcL Normal 0.00-0.27 [facility] ([place]) Comment on above: Performed By: #### C AION, MG, TROPI, PHOS, CMP, PBNP, GFR, TSH, CBC, DIFF, MORPH #### [address] [address] Basophils/100 WBC (Bld) 0.7 % Normal 0.0-2.5 A [facility] ([place]) Comment on above: Performed By: #### C AION, MG, TROPI, PHOS, CMP, PBNP, GFR, TSH, CBC, DIFF, MORPH #### [address] [address] Eosinophils (Bld) [#/Vol] 0.60 10 3/mcL Normal 0.00-0.65 [facility] ([place]) Comment on above: Performed By: #### C AION, MG, TROPI, PHOS, CMP, PBNP, GFR, TSH, CBC, DIFF, MORPH #### [address] [address] Eosinophils/100 WBC (Bld) 9.2 % High 0.0-6.0 [facility] ([place]) Comment on above: Performed By: #### C AION, MG, TROPI, PHOS, CMP, PBNP, GFR, TSH, CBC, DIFF, MORPH #### [address] [address] Lymphocytes (Bld) [#/Vol] 1.20 10 3/mcL Normal 0.90-4.32 [facility] ([place]) Comment on above: Performed By: #### C AION, MG, TROPI, PHOS, CMP, PBNP, GFR, TSH, CBC, DIFF, MORPH #### [address] [address] Lymphocytes/100 WBC (Bld) 16.8 % Low 20.0-40.0 [facility] ([place]) Comment on above: Performed By: #### C AION, MG, TROPI, PHOS, CMP, PBNP, GFR, TSH, CBC, DIFF, MORPH #### [address] [address] Monocytes/100 WBC (Bld) 10.2 % Normal 2.0-13.0 [facility] ([place]) Comment on above: Performed By: #### C AION, MG, TROPI, PHOS, CMP, PBNP, GFR, TSH, CBC, DIFF, MORPH #### [address] [address] Neutrophils/100 WBC (Bld) 63.1 % Normal 50.0-75.0 [facility] ([place]) Comment on above: Performed By: #### C AION, MG, TROPI, PHOS, CMP, PBNP, GFR, TSH, CBC, DIFF, MORPH #### [address] [address] .GFRon 02-22-2020 GFR Non- 50 ml/min/1.73sqm Normal [facility] ([place]) Comment on above: Result Comment: GFR Population [...] PBNP, GFR, TSH, CBC, DIFF, MORPH #### [place] [address] GFR >60 Normal [facility] ([place]) Comment on above: Result Comment: GFR Population [...] PBNP, GFR, TSH, CBC, DIFF, MORPH #### [place] [id number] .NEUABSon 02-22-2020 Neutrophils (Bld) [#/Vol] 4.30 10 3/mcL Normal 2.25-8.10 [facility] ([place]) Comment on above: Performed By: #### C AION, MG, TROPI, PHOS, CMP, PBNP, GFR, TSH, CBC, DIFF, MORPH #### [address] [address] BMP 02-22-2020 Creatinine [Mass/Vol] 1.10 mg/dL Normal 0.50-1.20 [facility] ([place] Comment on above: Performed By: #### C AION, MG, TROPI, PHOS, CMP, PBNP, GFR, TSH, CBC, DIFF, MORPH #### [address] [address] Urea nitrogen/Creatinine [Mass ratio] 16.4 ratio Normal 10.0-22.0 [facility] ([place]) Comment on above: Performed By: #### C AION, MG, TROPI, PHOS, CMP, PBNP, GFR, TSH, CBC, DIFF, MORPH #### [place] [phone] Calcium [Mass/Vol] 7.7 mg/dL Low 8.4-10.1 [facility] ([place]) Comment on above: Performed By: #### C AION, MG, TROPI, PHOS, CMP, PBNP, GFR, TSH, CBC, DIFF, MORPH #### [address] [address] Chloride [Moles/Vol] 105 mmol/L Normal 98-110 [facility] ([place]) Comment on above: Performed By: #### C AION, MG, TROPI, PHOS, CMP, PBNP, GFR, TSH, CBC, DIFF, MORPH #### [address] [address] CO2 [Moles/Vol] 29 mmol/L Normal 22-32 [facility] ([place]) Comment on above: Performed By: #### C AION, MG, TROPI, PHOS, CMP, PBNP, GFR, TSH, CBC, DIFF, MORPH #### [address] [address] Electrolyte Balance 5.0 mEq/L Normal 4.0-15.0 [facility] ([place]) Comment on above: Performed By: #### C AION, MG, TROPI, PHOS, CMP, PBNP, GFR, TSH, CBC, DIFF, MORPH #### [address] [address] Glucose [Mass/Vol] 135 mg/dL High 82-115 [facility] ([place]) Comment on above: Performed By: #### C AION, MG, TROPI, PHOS, CMP, PBNP, GFR, TSH, CBC, DIFF, MORPH #### [address] [address] Potassium [Moles/Vol] 4.0 mmol/L Normal 3.5-5.0 [facility] ([place]) Comment on above: Performed By: #### C AION, MG, TROPI, PHOS, CMP, PBNP, GFR, TSH, CBC, DIFF, MORPH #### [address] [address] Sodium [Moles/Vol] 139 mmol/L Normal 136-145 [facility] ([place]) Comment on above: Performed By: #### C AION, MG, TROPI, PHOS, CMP, PBNP, GFR, TSH, CBC, DIFF, MORPH #### [address] [address] Urea nitrogen [Mass/Vol] 18.0 mg/dL Normal 8.0-22.0 [facility] ([place]) Comment on above: Performed By: #### C AION, MG, TROPI, PHOS, CMP, PBNP, GFR, TSH, CBC, DIFF, MORPH #### [address] [address] CBCon 02-22-2020 Erythrocyte distribution width (RBC) [Ratio] 19.4 % High 11.5-15.5 [facility] ([place]) Comment on above: Performed By: #### C AION, MG, TROPI, PHOS, CMP, PBNP, GFR, TSH, CBC, DIFF, MORPH #### [address] [address] Hematocrit (Bld) [Volume fraction] 25.7 % Low 34.0-46.0 [facility] ([place]) Comment on above: Performed By: #### C AION, MG, TROPI, PHOS, CMP, PBNP, GFR, TSH, CBC, DIFF, MORPH #### [place] [phone] Hemoglobin (Bld) [Mass/Vol] 8.1 G/dL Low 12.0-16.0 [facility] ([place]) Comment on above: Performed By: #### C AION, MG, TROPI, PHOS, CMP, PBNP, GFR, TSH, CBC, DIFF, MORPH #### [place] [phone] MCH (RBC) [Entitic mass] 24.0 pg Low 27.0-33.0 [facility] ([place]) Comment on above: Performed By: #### C AION, MG, TROPI, PHOS, CMP, PBNP, GFR, TSH, CBC, DIFF, MORPH #### [place] [phone] MCHC (RBC) [Mass/Vol] 31.5 G/dL Low 32.0-36.0 [facility] ([place]) Comment on above: Performed By: #### C AION, MG, TROPI, PHOS, CMP, PBNP, GFR, TSH, CBC, DIFF, MORPH #### [place] [address] MCV (RBC) [Entitic vol] 76.1 fL Low 80.0-99.0 [facility] ([place]) Comment on above: Performed By: #### C AION, MG, TROPI, PHOS, CMP, PBNP, GFR, TSH, CBC, DIFF, MORPH #### [place] [phone] Platelet mean volume (Bld) [Entitic vol] 6.6 fL Normal 6.6-10.5 [facility] ([place]) Comment on above: Performed By: #### C AION, MG, TROPI, PHOS, CMP, PBNP, GFR, TSH, CBC, DIFF, MORPH #### [facility] [address] [place], [place] [address] Platelets (Bld) [#/Vol] 371 10 3/mcL Normal 150-450 [facility] ([place]) Comment on above: Performed By: #### C AION, MG, TROPI, PHOS, CMP, PBNP, GFR, TSH, CBC, DIFF, MORPH #### [place] [address] RBC (Bld) [#/Vol] 3.37 10 6/mcL Low 4.10-5.30 [facility] ([place]) Comment on above: Performed By: #### C AION, MG, TROPI, PHOS, CMP, PBNP, GFR, TSH, CBC, DIFF, MORPH #### [place] [address] WBC (Bld) [#/Vol] 6.90 10 3/mcL Normal 4.50-10.80 [facility] ([place]) Comment on above: Performed By: #### C AION, MG, TROPI, PHOS, CMP, PBNP, GFR, TSH, CBC, DIFF, MORPH #### [address] [address] .Auto Diffon 02-21-2020 Ammonia (P) [Mass/Vol] 0.60 10 3/mcL Normal 0.09-1.40 [facility] ([place]) Comment on above: Performed By: #### C AION, MG, TROPI, PHOS, CMP, PBNP, GFR, TSH, CBC, DIFF, MORPH #### [place] [address] Basophils (Bld) [#/Vol] 0.00 10 3/mcL Normal 0.00-0.27 [facility] ([place]) Comment on above: Performed By: #### C AION, MG, TROPI, PHOS, CMP, PBNP, GFR, TSH, CBC, DIFF, MORPH #### [place] [address] Basophils/100 WBC (Bld) 0.6 % Normal 0.0-2.5 A [facility] ([place]) Comment on above: Performed By: #### C AION, MG, TROPI, PHOS, CMP, PBNP, GFR, TSH, CBC, DIFF, MORPH #### [address] [address] Eosinophils (Bld) [#/Vol] 0.40 10 3/mcL Normal 0.00-0.65 [facility] ([place]) Comment on above: Performed By: #### C AION, MG, TROPI, PHOS, CMP, PBNP, GFR, TSH, CBC, DIFF, MORPH #### [address] [address] Eosinophils/100 WBC (Bld) 6.0 % Normal 0.0-6.0 [facility] ([place]) Comment on above: Performed By: #### C AION, MG, TROPI, PHOS, CMP, PBNP, GFR, TSH, CBC, DIFF, MORPH #### [address] [address] Lymphocytes (Bld) [#/Vol] 0.90 10 3/mcL Normal 0.90-4.32 [facility] ([place]) Comment on above: Performed By: #### C AION, MG, TROPI, PHOS, CMP, PBNP, GFR, TSH, CBC, DIFF, MORPH #### [address] [address] Lymphocytes/100 WBC (Bld) 13.9 % Low 20.0-40.0 [facility] ([place]) Comment on above: Performed By: #### C AION, MG, TROPI, PHOS, CMP, PBNP, GFR, TSH, CBC, DIFF, MORPH #### [address] [address] Monocytes/100 WBC (Bld) 9.1 % Normal 2.0-13.0 [facility] ([place]) Comment on above: Performed By: #### C AION, MG, TROPI, PHOS, CMP, PBNP, GFR, TSH, CBC, DIFF, MORPH #### [address] [address] Neutrophils/100 WBC (Bld) 70.4 % Normal 50.0-75.0 [facility] ([place]) Comment on above: Performed By: #### C AION, MG, TROPI, PHOS, CMP, PBNP, GFR, TSH, CBC, DIFF, MORPH #### [address] [address] .GFRon 02-21-2020 GFR Non- 47 ml/min/1.73sqm Normal [facility] ([place]) Comment on above: Result Comment: GFR Population [...] PBNP, GFR, TSH, CBC, DIFF, MORPH #### [address] [address] GFR 57 ml/min/1.73sqm Normal [facility] ([place]) Comment on above: Result Comment: GFR Population [...] PBNP, GFR, TSH, CBC, DIFF, MORPH #### [place] [address] .Morphon 02-21-2020 Anisocytosis Ql (Bld) Slight Normal [facility] ([place]) Comment on above: Performed By: #### C AION, MG, TROPI, PHOS, CMP, PBNP, GFR, TSH, CBC, DIFF, MORPH #### [place] [address] Hypochrom Slight Normal [facility] ([place]) Comment on above: Performed By: #### C AION, MG, TROPI, PHOS, CMP, PBNP, GFR, TSH, CBC, DIFF, MORPH #### [place] [address] Microcytosis Slight Normal [facility] ([place]) Comment on above: Performed By: #### C AION, MG, TROPI, PHOS, CMP, PBNP, GFR, TSH, CBC, DIFF, MORPH #### [place] [address] Ovalocytes Few Normal [facility] ([place]) Comment on above: Performed By: #### C AION, MG, TROPI, PHOS, CMP, PBNP, GFR, TSH, CBC, DIFF, MORPH #### [place] [address] Platelets (Bld) [#/Vol] Normal Normal A [facility] ([place]) Comment on above: Performed By: #### C AION, MG, TROPI, PHOS, CMP, PBNP, GFR, TSH, CBC, DIFF, MORPH #### [place] [address] Poik Slight Normal [facility] ([place]) Comment on above: Performed By: #### C AION, MG, TROPI, PHOS, CMP, PBNP, GFR, TSH, CBC, DIFF, MORPH #### [place] [address] Polychrom Slight Normal [facility] ([place]) Comment on above: Performed By: #### C AION, MG, TROPI, PHOS, CMP, PBNP, GFR, TSH, CBC, DIFF, MORPH #### [address] [address] .NEUABSon 02-21-2020 Neutrophils (Bld) [#/Vol] 4.60 10 3/mcL Normal 2.25-8.10 [facility] ([place]) Comment on above: Performed By: #### C AION, MG, TROPI, PHOS, CMP, PBNP, GFR, TSH, CBC, DIFF, MORPH #### [address] [address] BMPon 02-21-2020 Creatinine [Mass/Vol] 1.16 mg/dL Normal 0.50-1.20 [facility] ([place]) Comment on above: Performed By: #### C AION, MG, TROPI, PHOS, CMP, PBNP, GFR, TSH, CBC, DIFF, MORPH #### [address] [address] Urea nitrogen/Creatinine [Mass ratio] 15.5 ratio Normal 10.0-22.0 [facility] ([place]) Comment on above: Performed By: #### C AION, MG, TROPI, PHOS, CMP, PBNP, GFR, TSH, CBC, DIFF, MORPH #### [address] [address] Calcium [Mass/Vol] 8.0 mg/dL Low 8.4-10.1 [facility] ([place]) Comment on above: Performed By: #### C AION, MG, TROPI, PHOS, CMP, PBNP, GFR, TSH, CBC, DIFF, MORPH #### [address] [address] Chloride [Moles/Vol] 106 mmol/L Normal 98-110 [facility] ([place]) Comment on above: Performed By: #### C AION, MG, TROPI, PHOS, CMP, PBNP, GFR, TSH, CBC, DIFF, MORPH #### [address] [address] CO2 [Moles/Vol] 29 mmol/L Normal 22-32 [facility] ([place]) Comment on above: Performed By: #### C AION, MG, TROPI, PHOS, CMP, PBNP, GFR, TSH, CBC, DIFF, MORPH #### [address] [address] Electrolyte Balance 5.0 mEq/L Normal 4.0-15.0 [facility] ([place]) Comment on above: Performed By: #### C AION, MG, TROPI, PHOS, CMP, PBNP, GFR, TSH, CBC, DIFF, MORPH #### [address] [address] Glucose [Mass/Vol] 219 mg/dL High 82-115 [facility] ([place]) Comment on above: Performed By: #### C AION, MG, TROPI, PHOS, CMP, PBNP, GFR, TSH, CBC, DIFF, MORPH #### [address] [address] Potassium [Moles/Vol] 4.1 mmol/L Normal 3.5-5.0 [facility] Comment on above: Performed By: #### C AION, MG, TROPI, PHOS, CMP, PBNP, GFR, TSH, CBC, DIFF, MORPH #### [address] [address] Sodium [Moles/Vol] 140 mmol/L Normal 136-145 [facility] ([place]) Comment on above: Performed By: #### C AION, MG, TROPI, PHOS, CMP, PBNP, GFR, TSH, CBC, DIFF, MORPH #### [address] [address] Urea nitrogen [Mass/Vol] 18.0 mg/dL Normal 8.0-22.0 [facility] ([place]) Comment on above: Performed By: #### C AION, MG, TROPI, PHOS, CMP, PBNP, GFR, TSH, CBC, DIFF, MORPH #### [address] [address] CBCon 02-21-2020 Erythrocyte distribution width (RBC) [Ratio] 18.6 % High 11.5-15.5 [facility] ([place]) Comment on above: Performed By: #### C AION, MG, TROPI, PHOS, CMP, PBNP, GFR, TSH, CBC, DIFF, MORPH #### [place] [phone] Hematocrit (Bld) [Volume fraction] 22.6 % Low 34.0-46.0 [facility] ([place]) Comment on above: Performed By: #### C AION, MG, TROPI, PHOS, CMP, PBNP, GFR, TSH, CBC, DIFF, MORPH #### [place] [phone] Hemoglobin (Bld) [Mass/Vol] 6.9 G/dL Critically abnormal 12.0-16.0 [facility] ([place]) Comment on above: Performed By: #### C AION, MG, TROPI, PHOS, CMP, PBNP, GFR, TSH, CBC, DIFF, MORPH #### [place] [phone] MCH (RBC) [Entitic mass] 22.7 pg Low 27.0-33.0 [facility] ([place]) Comment on above: Performed By: #### C AION, MG, TROPI, PHOS, CMP, PBNP, GFR, TSH, CBC, DIFF, MORPH #### [place] [phone] MCHC (RBC) [Mass/Vol] 30.5 G/dL Low 32.0-36.0 [facility] ([place] Comment on above: Performed By: #### C AION, MG, TROPI, PHOS, CMP, PBNP, GFR, TSH, CBC, DIFF, MORPH #### [place] [address] MCV (RBC) [Entitic vol] 74.5 fL Low 80.0-99.0 A [facility] ([place]) Comment on above: Performed By: #### C AION, MG, TROPI, PHOS, CMP, PBNP, GFR, TSH, CBC, DIFF, MORPH #### [place] [phone] Platelet mean volume (Bld) [Entitic vol] 6.2 fL Low 6.6-10.5 [facility] ([place]) Comment on above: Performed By: #### C AION, MG, TROPI, PHOS, CMP, PBNP, GFR, TSH, CBC, DIFF, MORPH #### [address] [address] Platelets (Bld) [#/Vol] 397 10 3/mcL Normal 150-450 [facility] ([place]) Comment on above: Performed By: #### C AION, MG, TROPI, PHOS, CMP, PBNP, GFR, TSH, CBC, DIFF, MORPH #### [place] [address] RBC (Bld) [#/Vol] 3.04 10 6/mcL Low 4.10-5.30 [facility] ([place]) Comment on above: Performed By: #### C AION, MG, TROPI, PHOS, CMP, PBNP, GFR, TSH, CBC, DIFF, MORPH #### [place] [phone] WBC (Bld) [#/Vol] 6.60 10 3/mcL Normal 4.50-10.80 [facility] ([place]) Comment on above: Performed By: #### C AION, MG, TROPI, PHOS, CMP, PBNP, GFR, TSH, CBC, DIFF, MORPH #### [place] [address] FESon 02-20-2019 Iron [Mass/Vol] 41 ug/dL Normal 37-170 [facility] ([place]) Comment on above: Performed By: #### C AION, MG, TROPI, PHOS, CMP, PBNP, GFR, TSH, CBC, DIFF, MORPH #### [place] [address] Iron Sat 11 % Normal [facility] ([place]) Comment on above: Performed By: #### C AION, MG, TROPI, PHOS, CMP, PBNP, GFR, TSH, CBC, DIFF, MORPH #### [place] [address] TIBC 388 mcg/dL Normal 250-500 [facility] ([place]) Comment on above: Performed By: #### C AION, MG, TROPI, PHOS, CMP, PBNP, GFR, TSH, CBC, DIFF, MORPH #### [place] [phone] HGBon 02-21-2020 Hemoglobin (Bld) [Mass/Vol] 6.8 G/dL Critically abnormal 12.0-16.0 [facility] ([place]) Comment on above: Performed By: #### C AION, MG, TROPI, PHOS, CMP, PBNP, GFR, TSH, CBC, DIFF, MORPH #### [place] [address] Hemoglobin (Bld) [Mass/Vol] 5.1 G/dL Critically abnormal 12.0-16.0 [facility] ([place]) Comment on above: Result Comment: Spec imen drawn while blood was still running at floor's insistence. Results may not be accurate. Performed By: #### C AION, MG, TROPI, PHOS, CMP, PBNP, GFR, TSH, CBC, DIFF, MORPH #### [place] [address] HH 02-21-2020 Hematocrit (Bld) [Volume fraction] 27.8 % Low 34.0-46.0 [facility] ([place]) Comment on above: Performed By: #### C AION, MG, TROPI, PHOS, CMP, PBNP, GFR, TSH, CBC, DIFF, MORPH #### [place] [address] Hemoglobin (Bld) [Mass/Vol] 8.6 G/dL Low 12.0-16.0 [facility] ([place]) Comment on above: Performed By: #### C AION, MG, TROPI, PHOS, CMP, PBNP, GFR, TSH, CBC, DIFF, MORPH #### [place] [address] LIPIDon 02-21-2020 Cholesterol [Mass/Vol] 93 mg/dL Normal 50-199 [facility] ([place]) Comment on above: Result Comment: Chol esterol Reference Interval: Less than 200 Desirable 200-239 Borderline high risk 240 and above High risk Performed By: #### C VAL MG, TROPI, PHOS, CMP, PBNP, GFR, TSH, CBC, DIFF, MORPH #### [address] [address] Cholesterol in HDL [Mass/Vol] 39 mg/dL Low 40-59 [facility] ([place]) Comment on above: Result Comment: HDL Reference Interval: Less than 40 Low - high risk 60 or above Optimal/lowers risk Performed By: #### C AION, MG, TROPI, PHOS, CMP, PBNP, GFR, TSH, CBC, DIFF, MORPH #### [address] [address] Cholesterol in LDL [Mass/Vol] 27 mg/dL Normal 0-129 [facility] ([place]) Comment on above: Result Comment: LDL is a calculated result and requires a 12-hr fast. LDL Reference Interval: Less than 100 Optimal 100-129 Near or above optimal 130-159 Borderline high risk 160-189 High risk 190 and above Very high risk Performed By: #### C AION, MG, TROPI, PHOS, CMP, PBNP, GFR, TSH, CBC, DIFF, MORPH #### [address] [address] Triglyceride [Mass/Vol] 135 mg/dL Normal 3-149 [facility] ([place]) Comment on above: Result Comment: Trig lyceride Reference Interval: Less than 150 Normal 150-199 Borderline high risk 200-499 High risk 500 or higher Very high risk Performed By: #### C AION, MG, TROPI, PHOS, CMP, PBNP, GFR, TSH, CBC, DIFF, MORPH #### [address] [address] MGon 02-21-2020 Magnesium [Mass/Vol] 1.9 mg/dL Normal 1.6-2.4 [facility] ([place]) Comment on above: Performed By: #### C AION, MG, TROPI, PHOS, CMP, PBNP, GFR, TSH, CBC, DIFF, MORPH #### [address] [address] RBC (Product)on 02-21-2020 RBC (Bld) [#/Vol] RBC Ready for Pickup Normal [facility] ([place]) Comment on above: Performed By: #### C AION, MG, TROPI, PHOS, CMP, PBNP, GFR, TSH, CBC, DIFF, MORPH #### [address] [address] .GFRon 02-20-2020 GFR Non- 56 ml/min/1.73sqm Normal [facility] ([place]) Comment on above: Result Comment: GFR Population [...] PBNP, GFR, TSH, CBC, DIFF, MORPH #### [address] [address] GFR >60 Normal [facility] ([place]) Comment on above: Result Comment: GFR Population [...] PBNP, GFR, TSH, CBC, DIFF, MORPH #### [address] [address] .Manual Diffon 02-20-2020 Basophil %, Manual 0.0 % Normal 0.0-2.5 [facility] ([place]) Comment on above: Performed By: #### C AION, MG, TROPI, PHOS, CMP, PBNP, GFR, TSH, CBC, DIFF, MORPH #### [place] [address] Basophil, Abs Manual 0.00 10 3/mcL Normal 0.00-0.27 A [facility] ([place]) Comment on above: Performed By: #### C AION, MG, TROPI, PHOS, CMP, PBNP, GFR, TSH, CBC, DIFF, MORPH #### [place] [address] Cells Counted 100 Normal [facility] ([place]) Comment on above: Performed By: #### C AION, MG, TROPI, PHOS, CMP, PBNP, GFR, TSH, CBC, DIFF, MORPH #### [place] [address] Eosinophil %, Manual 3.0 % Normal 0.0-6.0 [facility] ([place]) Comment on above: Performed By: #### C AION, MG, TROPI, PHOS, CMP, PBNP, GFR, TSH, CBC, DIFF, MORPH #### [place] [address] Eosinophil, Abs Manual 0.22 10 3/mcL Normal 0.00-0.65 [facility] ([place]) Comment on above: Performed By: #### C AION, MG, TROPI, PHOS, CMP, PBNP, GFR, TSH, CBC, DIFF, MORPH #### [place] [address] Lymphocyte %, Manual 14.0 % Low 20.0-40.0 [facility] ([place]) Comment on above: Performed By: #### C AION, MG, TROPI, PHOS, CMP, PBNP, GFR, TSH, CBC, DIFF, MORPH #### [facility] [address] [place], [place] [address] Lymphocyte, Abs Manual 1.02 10 3/mcL Normal 0.90-4.32 [facility] ([place]) Comment on above: Performed By: #### C AION, MG, TROPI, PHOS, CMP, PBNP, GFR, TSH, CBC, DIFF, MORPH #### [address] [address] Monocyte %, Manual 8.0 % Normal 2.0-13.0 [facility] ([place]) Comment on above: Performed By: #### C AION, MG, TROPI, PHOS, CMP, PBNP, GFR, TSH, CBC, DIFF, MORPH #### [address] [address] Monocyte, Abs Manual 0.58 10 3/mcL Normal 0.09-1.40 A [facility] ([place]) Comment on above: Performed By: #### C AION, MG, TROPI, PHOS, CMP, PBNP, GFR, TSH, CBC, DIFF, MORPH #### [place] [phone] Myelocyte 1.0 % Normal [facility] ([place]) Comment on above: Performed By: #### C AION, MG, TROPI, PHOS, CMP, PBNP, GFR, TSH, CBC, DIFF, MORPH #### [address] [address] Neutrophil %, Manual 74.0 % Normal 50.0-75.0 [facility] ([place]) Comment on above: Performed By: #### C AION, MG, TROPI, PHOS, CMP, PBNP, GFR, TSH, CBC, DIFF, MORPH #### [address] [address] Neutrophil, Abs Manual 5.62 10 3/mcL Normal 2.25-8.10 [facility] ([place]) Comment on above: Performed By: #### C AION, MG, TROPI, PHOS, CMP, PBNP, GFR, TSH, CBC, DIFF, MORPH #### [place] [phone] Nucleated RBC (Bld) [#/Vol] 1.0 /100 WBC Normal [facility] ([place]) Comment on above: Performed By: #### C AION, MG, TROPI, PHOS, CMP, PBNP, GFR, TSH, CBC, DIFF, MORPH #### [place] [address] .Morphon 02-20-2020 Anisocytosis Ql (Bld) Slight Normal [facility] Comment on above: Performed By: #### C AION, MG, TROPI, PHOS, CMP, PBNP, GFR, TSH, CBC, DIFF, MORPH #### [place] [address] Hypochrom Moderate Normal [facility] ([place]) Comment on above: Performed By: #### C AION, MG, TROPI, PHOS, CMP, PBNP, GFR, TSH, CBC, DIFF, MORPH #### [place] [address] Microcytosis Moderate Normal [facility] ([place]) Comment on above: Performed By: #### C AION, MG, TROPI, PHOS, CMP, PBNP, GFR, TSH, CBC, DIFF, MORPH #### [place] [address] Ovalocytes Few Normal [facility] ([place]) Comment on above: Performed By: #### C AION, MG, TROPI, PHOS, CMP, PBNP, GFR, TSH, CBC, DIFF, MORPH #### [place] [address] Platelets (Bld) [#/Vol] Normal Normal A [facility] ([place]) Comment on above: Performed By: #### C AION, MG, TROPI, PHOS, CMP, PBNP, GFR, TSH, CBC, DIFF, MORPH #### [place] [address] Polychrom Slight Normal [facility] ([place]) Comment on above: Performed By: #### C AION, MG, TROPI, PHOS, CMP, PBNP, GFR, TSH, CBC, DIFF, MORPH #### [place] [address] B12on 02-20-2020 Cobalamin (Vitamin B12) [Mass/Vol] 613 pg/mL Normal 211-911 [facility] ([place]) Comment on above: Performed By: #### C AION, MG, TROPI, PHOS, CMP, PBNP, GFR, TSH, CBC, DIFF, MORPH #### [address] [address] CAIONon 02-20-2020 Calcium Ionized 1.10 mmol/L Low 1.12-1.32 [facility] ([place]) Comment on above: Performed By: #### C AION, MG, TROPI, PHOS, CMP, PBNP, GFR, TSH, CBC, DIFF, MORPH #### [address] [address] CBCon 02-20-2020 Erythrocyte distribution width (RBC) [Ratio] 18.0 % High 11.5-15.5 [facility] ([place]) Comment on above: Performed By: #### C AION, MG, TROPI, PHOS, CMP, PBNP, GFR, TSH, CBC, DIFF, MORPH #### [address] [address] Hematocrit (Bld) [Volume fraction] 18.1 % Low 34.0-46.0 [facility] ([place]) Comment on above: Performed By: #### C AION, MG, TROPI, PHOS, CMP, PBNP, GFR, TSH, CBC, DIFF, MORPH #### [place] [phone] Hemoglobin (Bld) [Mass/Vol] 5.3 G/dL Critically abnormal 12.0-16.0 [facility] ([place]) Comment on above: Performed By: #### C AION, MG, TROPI, PHOS, CMP, PBNP, GFR, TSH, CBC, DIFF, MORPH #### [address] [address] MCH (RBC) [Entitic mass] 21.2 pg Low 27.0-33.0 [facility] ([place]) Comment on above: Performed By: #### C AION, MG, TROPI, PHOS, CMP, PBNP, GFR, TSH, CBC, DIFF, MORPH #### [address] [address] MCHC (RBC) [Mass/Vol] 29.2 G/dL Low 32.0-36.0 [facility] ([place] Comment on above: Performed By: #### C AION, MG, TROPI, PHOS, CMP, PBNP, GFR, TSH, CBC, DIFF, MORPH #### [place] [id number] MCV (RBC) [Entitic vol] 72.6 fL Low 80.0-99.0 A [facility] ([place]) Comment on above: Performed By: #### C AION, MG, TROPI, PHOS, CMP, PBNP, GFR, TSH, CBC, DIFF, MORPH #### [address] [address] Platelet mean volume (Bld) [Entitic vol] 6.5 fL Low 6.6-10.5 [facility] ([place]) Comment on above: Performed By: #### C AION, MG, TROPI, PHOS, CMP, PBNP, GFR, TSH, CBC, DIFF, MORPH #### [address] [address] Platelets (Bld) [#/Vol] 432 10 3/mcL Normal 150-450 [facility] ([place]) Comment on above: Performed By: #### C AION, MG, TROPI, PHOS, CMP, PBNP, GFR, TSH, CBC, DIFF, MORPH #### [place] [id number] RBC (Bld) [#/Vol] 2.49 10 6/mcL Low 4.10-5.30 [facility] ([place]) Comment on above: Performed By: #### C AION, MG, TROPI, PHOS, CMP, PBNP, GFR, TSH, CBC, DIFF, MORPH #### [address] [address] WBC (Bld) [#/Vol] 7.30 10 3/mcL Normal 4.50-10.80 [facility] ([place]) Comment on above: Performed By: #### C AION, MG, TROPI, PHOS, CMP, PBNP, GFR, TSH, CBC, DIFF, MORPH #### [address] [address] CMPon 02-20-2020 Albumin/Globulin [Mass ratio] 0.8 {ratio} Low 0.9-1.6 [facility] ([place]) Comment on above: Performed By: #### C AION, MG, TROPI, PHOS, CMP, PBNP, GFR, TSH, CBC, DIFF, MORPH #### [address] [address] ALP [Catalytic activity/Vol] 69 U/L Normal 38-126 [facility] ([place]) Comment on above: Performed By: #### C AION, MG, TROPI, PHOS, CMP, PBNP, GFR, TSH, CBC, DIFF, MORPH #### [place] [address] ALT [Catalytic activity/Vol] 18 U/L Normal 10-49 [facility] ([place]) Comment on above: Performed By: #### C AION, MG, TROPI, PHOS, CMP, PBNP, GFR, TSH, CBC, DIFF, MORPH #### [place] [phone] AST [Catalytic activity/Vol] 17 U/L Normal 8-34 [facility] ([place]) Comment on above: Performed By: #### C AION, MG, TROPI, PHOS, CMP, PBNP, GFR, TSH, CBC, DIFF, MORPH #### [address] [address] Bili Total 0.5 mg/dL Normal 0.2-1.2 [facility] ([place]) Comment on above: Result Comment: Use of this assay is not recommended for patients undergoing treatment with eltrombopag due to the potential for falsely elevated results. Performed By: #### C AION, MG, TROPI, PHOS, CMP, PBNP, GFR, TSH, CBC, DIFF, MORPH #### [facility] [address] [place], [place] [address] Creatinine [Mass/Vol] 1.00 mg/dL Normal 0.50-1.20 [facility] ([place]) Comment on above: Performed By: #### C AION, MG, TROPI, PHOS, CMP, PBNP, GFR, TSH, CBC, DIFF, MORPH #### [address] [address] Globulin (S) [Mass/Vol] 3.8 G/dL Normal 1.5-3.8 A [facility] ([place]) Comment on above: Performed By: #### C AION, MG, TROPI, PHOS, CMP, PBNP, GFR, TSH, CBC, DIFF, MORPH #### [address] [address] Protein [Mass/Vol] 6.7 G/dL Normal 6.0-8.5 [facility] ([place]) Comment on above: Performed By: #### C AION, MG, TROPI, PHOS, CMP, PBNP, GFR, TSH, CBC, DIFF, MORPH #### [address] [address] Urea nitrogen/Creatinine [Mass ratio] 15.0 ratio Normal 10.0-22.0 [facility] ([place]) Comment on above: Performed By: #### C AION, MG, TROPI, PHOS, CMP, PBNP, GFR, TSH, CBC, DIFF, MORPH #### [address] [address] Albumin [Mass/Vol] 2.9 G/dL Low 3.2-4.8 [facility] ([place]) Comment on above: Performed By: #### C AION, MG, TROPI, PHOS, CMP, PBNP, GFR, TSH, CBC, DIFF, MORPH #### [address] [address] Calcium [Mass/Vol] 8.4 mg/dL Normal 8.4-10.1 [facility] ([place]) Comment on above: Performed By: #### C AION, MG, TROPI, PHOS, CMP, PBNP, GFR, TSH, CBC, DIFF, MORPH #### [address] [address] Chloride [Moles/Vol] 108 mmol/L Normal 98-110 [facility] ([place]) Comment on above: Performed By: #### C AION, MG, TROPI, PHOS, CMP, PBNP, GFR, TSH, CBC, DIFF, MORPH #### [address] [address] CO2 [Moles/Vol] 26 mmol/L Normal 22-32 [facility] ([place]) Comment on above: Performed By: #### C AION, MG, TROPI, PHOS, CMP, PBNP, GFR, TSH, CBC, DIFF, MORPH #### [address] [address] Electrolyte Balance 7.0 mEq/L Normal 4.0-15.0 [facility] ([place]) Comment on above: Performed By: #### C AION, MG, TROPI, PHOS, CMP, PBNP, GFR, TSH, CBC, DIFF, MORPH #### [address] [address] Glucose [Mass/Vol] 110 mg/dL Normal 82-115 [facility] ([place]) Comment on above: Performed By: #### C AION, MG, TROPI, PHOS, CMP, PBNP, GFR, TSH, CBC, DIFF, MORPH #### [address] [address] Potassium [Moles/Vol] 4.2 mmol/L Normal 3.5-5.0 [facility] ([place]) Comment on above: Performed By: #### C AION, MG, TROPI, PHOS, CMP, PBNP, GFR, TSH, CBC, DIFF, MORPH #### [address] [address] Sodium [Moles/Vol] 141 mmol/L Normal 136-145 [facility] ([place]) Comment on above: Performed By: #### C AION, MG, TROPI, PHOS, CMP, PBNP, GFR, TSH, CBC, DIFF, MORPH #### [address] [address] Urea nitrogen [Mass/Vol] 15.0 mg/dL Normal 8.0-22.0 [facility] ([place]) Comment on above: Performed By: #### C AION, MG, TROPI, PHOS, CMP, PBNP, GFR, TSH, CBC, DIFF, MORPH #### [place] [address] Cristhian 02-20-2020 Ferritin [Mass/Vol] 6 ng/mL Low 8-252 [facility] ([place]) Comment on above: Performed By: #### C AION, MG, TROPI, PHOS, CMP, PBNP, GFR, TSH, CBC, DIFF, MORPH #### [place] [address] FES 02-20-2020 Iron Sat 2 % Normal [facility] ([place]) Comment on above: Performed By: #### C AION, MG, TROPI, PHOS, CMP, PBNP, GFR, TSH, CBC, DIFF, MORPH #### [place] [address] TIBC 430 mcg/dL Normal 250-500 [facility] ([place]) Comment on above: Performed By: #### C AION, MG, TROPI, PHOS, CMP, PBNP, GFR, TSH, CBC, DIFF, MORPH #### [place] [address] Iron [Mass/Vol] 10 ug/dL Low 37-170 [facility] ([place]) Comment on above: Performed By: #### C AION, MG, TROPI, PHOS, CMP, PBNP, GFR, TSH, CBC, DIFF, MORPH #### [place] [address] FOLon 02-20-2020 Folate 12.4 ng/mL Normal 1.1-20.0 [facility] ([place]) Comment on above: Performed By: #### C AION, MG, TROPI, PHOS, CMP, PBNP, GFR, TSH, CBC, DIFF, MORPH #### [place] [address] HHon 02-20-2020 Hematocrit (Bld) [Volume fraction] 19.0 % Low 34.0-46.0 [facility] ([place]) Comment on above: Performed By: #### C AION, MG, TROPI, PHOS, CMP, PBNP, GFR, TSH, CBC, DIFF, MORPH #### [address] [address] Hemoglobin (Bld) [Mass/Vol] 5.6 G/dL Critically abnormal 12.0-16.0 [facility] ([place]) Comment on above: Performed By: #### C AION, MG, TROPI, PHOS, CMP, PBNP, GFR, TSH, CBC, DIFF, MORPH #### [address] [address] MGon 02-20-2020 Magnesium [Mass/Vol] 2.0 mg/dL Normal 1.6-2.4 [facility] ([place]) Comment on above: Performed By: #### C AION, MG, TROPI, PHOS, CMP, PBNP, GFR, TSH, CBC, DIFF, MORPH #### [address] [address] PBNPon 02-20-2020 Natriuretic peptide B (Bld) [Mass/Vol] 1799 pg/mL High 0-900 [facility] ([place]) Comment on above: Result Comment: NT-p roBNP results of less than 300 pg/mL effectively rules out acute congestive heart failure with 99% negative predictive value. Performed By: #### C AION, MG, TROPI, PHOS, CMP, PBNP, GFR, TSH, CBC, DIFF, MORPH #### [address] [address] PHOSon 02-20-2020 Phosphate [Mass/Vol] 2.8 mg/dL Normal 2.5-4.5 [facility] ([place]) Comment on above: Performed By: #### C AION, MG, TROPI, PHOS, CMP, PBNP, GFR, TSH, CBC, DIFF, MORPH #### [address] [address] RBC (Product)on 02-20-2020 RBC (Bld) [#/Vol] RBC Ready for Pickup Normal [facility] ([place]) Comment on above: Performed By: #### C AION, MG, TROPI, PHOS, CMP, PBNP, GFR, TSH, CBC, DIFF, MORPH #### [place] [address] TABOon 02-20-2020 ABO/Rh Interp Positive [facility] ([place]) Comment on above: Performed By: #### C AION, MG, TROPI, PHOS, CMP, PBNP, GFR, TSH, CBC, DIFF, MORPH #### [place] [address] TABSon 02-20-2020 Antibody Screen Tango Negative [facility] ([place] Comment on above: Performed By: #### C AION, MG, TROPI, PHOS, CMP, PBNP, GFR, TSH, CBC, DIFF, MORPH #### [place] [address] TROPIon 02-20-2020 Troponin I.cardiac [Mass/Vol] ng/mL Normal 0.000-0.040 [facility] ([place]) Comment on above: Result Comment: Trop onin I reference ranges (07/06/14): 0.00-0.040 ng/mL Negative and non-diagnostic. >0.040 ng/mL Consistent with cardiac damage, increased clinical risk and possibility of myocardial infarction. Serial measurements, a rise & fall in test results, clinical history, appropriate symptoms and/or ECG changes may help assess possibility of DC. *Other non-acute coronary syndrome conditions such as CHF, myocarditis, pulmonary emboli, sepsis and cardiac surgery could result in myocardial damage and increased troponin levels. Performed By: #### C AION, MG, TROPI, PHOS, CMP, PBNP, GFR, TSH, CBC, DIFF, MORPH #### [place] [address] TSHon 02-20-2020 TSH Qn 1.870 mcIU/mL Normal 0.360-3.740 [facility] ([place]) Comment on above: Performed By: #### C AION, MG, TROPI, PHOS, CMP, PBNP, GFR, TSH, CBC, DIFF, MORPH #### [place] [id number] UAon 02-20-2020 Color (U) Dark Yellow Normal [facility] ([place]) Comment on above: Performed By: #### C AION, MG, TROPI, PHOS, CMP, PBNP, GFR, TSH, CBC, DIFF, MORPH #### [place] [address] Glucose (U) [Mass/Vol] Negative Normal Negative [facility] ([place]) Comment on above: Performed By: #### C AION, MG, TROPI, PHOS, CMP, PBNP, GFR, TSH, CBC, DIFF, MORPH #### [place] [address] Ketones Ql (U) Trace Normal Neg-Trace [facility] ([place]) Comment on above: Performed By: #### C AION, MG, TROPI, PHOS, CMP, PBNP, GFR, TSH, CBC, DIFF, MORPH #### [place] [address] UA Appear Clear Normal Clear [facility] ([place]) Comment on above: Performed By: #### C AION, MG, TROPI, PHOS, CMP, PBNP, GFR, TSH, CBC, DIFF, MORPH #### [place] [address] UA Blood Negative Normal Neg-Trace [facility] ([place]) Comment on above: Performed By: #### C AION, MG, TROPI, PHOS, CMP, PBNP, GFR, TSH, CBC, DIFF, MORPH #### [place] [address] UA Leuk Est Small Abnormal Negative [facility] ([place]) Comment on above: Performed By: #### C AION, MG, TROPI, PHOS, CMP, PBNP, GFR, TSH, CBC, DIFF, MORPH #### [place] [address] UA Nitrite Positive Abnormal Negative [facility] ([place]) Comment on above: Performed By: #### C AION, MG, TROPI, PHOS, CMP, PBNP, GFR, TSH, CBC, DIFF, MORPH #### [place] [address] UA pH 5.0 Normal 5.0 - 8.0 [facility] ([place]) Comment on above: Performed By: #### C AIALTON, MG, TROPI, PHOS, CMP, PBNP, GFR, TSH, CBC, DIFF, MORPH #### [place] [address] UA Protein Trace Normal Negative [facility] ([place]) Comment on above: Performed By: #### C AION, MG, TROPI, PHOS, CMP, PBNP, GFR, TSH, CBC, DIFF, MORPH #### [place] [id number] UA Spec Grav 1.025 Normal 1.006-1.029 [facility] ([place]) Comment on above: Performed By: #### C AION, MG, TROPI, PHOS, CMP, PBNP, GFR, TSH, CBC, DIFF, MORPH #### [place] [address] UA Specimen Type Clean Catch Normal [facility] ([place]) Comment on above: Performed By: #### C AION, MG, TROPI, PHOS, CMP, PBNP, GFR, TSH, CBC, DIFF, MORPH #### [place] [address] UA Urobilinogen 1.0 E.U./dL Normal 0.2-1.0 [facility] ([place]) Comment on above: Performed By: #### C AION, MG, TROPI, PHOS, CMP, PBNP, GFR, TSH, CBC, DIFF, MORPH #### [place] [address] Urobilinogen Qn (U) Negative Normal Neg-Trace [facility] ([place]) Comment on above: Performed By: #### C AION, MG, TROPI, PHOS, CMP, PBNP, GFR, TSH, CBC, DIFF, MORPH #### [place] [address] UAMICon 02-20-2020 RBC (U) [#/Vol] Negative Normal 0-2 [facility] ([place]) Comment on above: Performed By: #### C AION, MG, TROPI, PHOS, CMP, PBNP, GFR, TSH, CBC, DIFF, MORPH #### [address] [address] UA Bacteria 3+ /hpf Abnormal Negative [facility] ([place]) Comment on above: Performed By: #### C AION, MG, TROPI, PHOS, CMP, PBNP, GFR, TSH, CBC, DIFF, MORPH #### [address] [address] UA Squam Epithelial 3-5 Normal 0-20 [facility] ([place]) Comment on above: Performed By: #### C AION, MG, TROPI, PHOS, CMP, PBNP, GFR, TSH, CBC, DIFF, MORPH #### [address] [address] UA WBC 10-20 Abnormal 0-5 [facility] ([place]) Comment on above: Performed By: #### C AION, MG, TROPI, PHOS, CMP, PBNP, GFR, TSH, CBC, DIFF, MORPH #### [address] [address] XR CHEST 1 VIEWon 02-20-2020 XR CHEST [...] Date: 02/20/2020 1:37:01 PM Ordering Provider:Oscar Bee [facility] ([place]) CBC W/DIFFon 12-30-2019 BASO ABS 0.00 K/CU MM Normal 0-0.2 [facility] Comment on above: Performed By: #### L 550.66434, L200.16061 #### [facility] [address] [place] [address] Basophils/100 WBC (Bld) 0.5 % Normal 0-2 [facility] Comment on above: Performed By: #### L 550.73339, L200.62003 #### [facility] [address] [place] [address] EOS ABS 0.30 K/CU MM Normal 0-0.5 [facility] Comment on above: Performed By: #### L 550.39900, L200.53070 #### [facility] [address] [place] [address] Eosinophils/100 WBC (Bld) 3.5 % Normal 0-5 [facility] Comment on above: Performed By: #### L 550.72348, L200.34547 #### [facility] [address] [place] [address] Erythrocyte distribution width (RBC) [Ratio] 15.1 % High 11-14.5 [facility] Comment on above: Performed By: #### L 550.35350, L200.25877 #### [facility] [address] [place] [address] Hematocrit (Bld) [Volume fraction] 33.0 % Low 35.0-47.0 [facility] Comment on above: Performed By: #### L 550.98520, L200.67610 #### [facility] [address] [place] [address] Hemoglobin (Bld) [Mass/Vol] 9.6 g/dL Low 11.5-15.5 [facility] Comment on above: Performed By: #### L 550.03884, L200.13224 #### [facility] [address] [place] [address] IMMATR GRAN ABS 0.10 K/CU MM Normal Less than 2 [facility] Comment on above: Performed By: #### L 550.78865, L200.77131 #### [facility] [address] [place] [address] IMMATURE GRAN % 0.8 % Normal Less than 2 [facility] Comment on above: Performed By: #### L 550.86244, L200.44070 #### [facility] [address] [place] [address] Lymphocytes (Bld) [#/Vol] 1.60 K/CU MM Normal 0.9-4.4 [facility] Comment on above: Performed By: #### L 550.25685, L200.70586 #### [facility] [address] [place] [address] Lymphocytes/100 WBC (Bld) 21.2 % Normal 20-40 [facility] Comment on above: Performed By: #### L 550.33376, L200.91621 #### [facility] [address] [place] [address] MCHC (RBC) [Mass/Vol] 29.1 g/dL Low 32.0-36.0 [facility] Comment on above: Performed By: #### L 550.94433, L200.67688 #### [facility] [address] [place] [address] MCV (RBC) [Entitic vol] 87.3 fL Normal 80.0-99.0 [facility] Comment on above: Performed By: #### L 550.11987, L200.94918 #### [facility] [address] [place] [address] MONO ABS 0.60 K/CU MM Normal 0.1-1.1 [facility] Comment on above: Performed By: #### L 550.17124, L200.86874 #### [facility] [address] [place] [address] Monocytes/100 WBC (Bld) 8.3 % Normal 2-10 [facility] Comment on above: Performed By: #### L 550.96320, L200.28438 #### [facility] [address] [place] [address] NEUTROPHIL ABS 4.90 K/CU MM Normal 2.0-8.3 [facility] Comment on above: Performed By: #### L 550.42247, L200.78128 #### [facility] [address] [place] [address] Neutrophils/100 WBC (Bld) 65.7 % Normal 45-75 [facility] Comment on above: Performed By: #### L 550.96743, L200.58897 #### [facility] [address] [place] [address] Nucleated RBC/100 WBC (Bld) [Ratio] 0.0 % Normal Less than 1 [facility] Comment on above: Performed By: #### L 550.21735, L200.08955 #### [facility] [address] [place] [address] Platelet mean volume (Bld) [Entitic vol] 8.9 fL Low 9.4-12.4 [facility] Comment on above: Performed By: #### L 550.35440, L200.32657 #### [facility] [address] [place] [address] Platelets (Bld) [#/Vol] 343 K/CU MM Normal 150-450 [facility] Comment on above: Performed By: #### L 550.78368, L200.29772 #### [facility] [address] [place] [address] RBC (Bld) [#/Vol] 3.78 M/CU MM Low 3.90-5.30 [facility] Comment on above: Performed By: #### L 550.53316, L200.93529 #### [facility] [address] [place] [address] WBC (Bld) [#/Vol] 7.5 K/CUMM Normal 4.5-11.0 [facility] Comment on above: Performed By: #### L 550.30053, L200.53304 #### [facility] [address] [place], [place] [address] CMPon 12-30-2019 Albumin [Mass/Vol] 3.3 g/dL Normal 3.2-5.0 [facility] Comment on above: Performed By: #### L 550.94047, L500.49557, L500.86393, L500.94114 #### [facility] [address] [place] [address] Albumin/Globulin [Mass ratio] 0.9 {ratio} Normal 0.8-2.0 [facility] Comment on above: Performed By: #### L 550.26540, L500.00791, L500.70826, L500.96134 #### [facility] [address] [place] [address] ALK PHOS 84 U/L Normal 45-117 [facility] Comment on above: Performed By: #### L 550.46106, L500.87877, L500.93771, L500.99539 #### [facility] [address] [place], [place] [address] ALT [Catalytic activity/Vol] 20 U/L Normal 13-61 [facility] Comment on above: Result Comment: RESU LTS MAY BE FALSELY DEPRESSED AFTER THE ADMINISTRATION OF SULFASALAZINE AND/OR SULFAPYRIDINE. Performed By: #### L 550.52328, L500.46397, L500.29909, L500.87467 #### [facility] [address] [place] [address] Anion gap [Moles/Vol] 9 mmol/L Normal 5-16 [facility] Comment on above: Performed By: #### L 550.01751, L500.00614, L500.20065, L500.81316 #### [facility] [address] [place] [address] BILI TOTAL 0.4 MG/DL Normal 0.2-1.0 [facility] Comment on above: Performed By: #### L 550.71817, L500.48807, L500.27780, L500.44906 #### [facility] [address] [place] [address] Calcium [Mass/Vol] 8.9 mg/dL Normal 8.5-10.1 [facility] Comment on above: Performed By: #### L 550.65128, L500.98591, L500.68090, L500.69157 #### [facility] [address] [place] [address] Chloride [Moles/Vol] 104 mmol/L Normal 98-107 [facility] Comment on above: Performed By: #### L 550.19225, L500.84322, L500.70582, L500.04413 #### [facility] [address] [place] [address] CO2 [Moles/Vol] 24 mmol/L Normal 21-32 [facility] Comment on above: Performed By: #### L 550.30183, L500.55140, L500.36526, L500.47185 #### [facility] [address] [place] [address] Creatinine [Mass/Vol] 0.961 mg/dL High 0.510-0.950 [facility] Comment on above: Result Comment: Brendon ents receiving either N-Acetylcysteine (NAC) or Metamizole prior to venipuncture, may have falsely depressed results. Performed By: #### L 550.14554, L500.20036, L500.34195, L500.03401 #### [facility] [address] [place] [address] Globulin (S) [Mass/Vol] 3.7 g/dL Normal 2.2-4.2 [facility] Comment on above: Performed By: #### L 550.11080, L500.89375, L500.27680, L500.53308 #### [facility] [address] [place] [address] Glucose [Mass/Vol] 305 mg/dL High 70-100 [facility] Comment on above: Result Comment: 70-1 00- Normal Fasting; 100-125 Impaired Fasting; greater than 126 on more than one result- Diabetes. ADA guidelines. Results may be falsely elevated after the administration of Sulfapyridine. Results may be falsely depressed after the administration of Sulfasalazine. Performed By: #### L 550.80538, L500.53309, L500.75368, L500.28445 #### [facility] [address] [place] [address] Potassium [Moles/Vol] 4.8 mmol/L Normal 3.5-5.1 [facility] Comment on above: Performed By: #### L 550.80568, L500.82167, L500.52082, L500.27124 #### [facility] [address] [place] [address] Protein [Mass/Vol] 7.0 g/dL Normal 6.0-8.5 [facility] Comment on above: Performed By: #### L 550.38886, L500.91947, L500.85651, L500.96991 #### [facility] [address] [place], [place] [address] SGOT (AST) 12 U/L Normal 8-34 [facility] Comment on above: Result Comment: RESU LTS MAY BE FALSELY DEPRESSED AFTER THE ADMINISTRATION OF SULFASALAZINE AND/OR SULFAPYRIDINE. Performed By: #### L 550.04412, L500.26658, L500.31489, L500.34513 #### [facility] [address] [place] [address] Sodium [Moles/Vol] 137 mmol/L Normal 136-145 [facility] Comment on above: Performed By: #### L 550.10657, L500.07783, L500.85331, L500.82402 #### [facility] [address] [place] [address] Urea nitrogen [Mass/Vol] 20 mg/dL Normal 7-26 [facility] Comment on above: Performed By: #### L 550.63854, L500.32847, L500.14584, L500.04156 #### [facility] [address] [place] [address] Urea nitrogen/Creatinine [Mass ratio] 21 mg/mg Normal 15-24 [facility] Comment on above: Performed By: #### L 550.59470, L500.96909, L500.42024, L500.48186 #### [facility] [address] [place] [address] GFR ESTon 12-30-2019 IF AMER Greater than 60 Normal [facility] Comment on above: Performed By: #### L 550.21584, L500.57974, L500.32327, L500.67711 #### [facility] [address] [place] [address] IF non-AFR AMER 59 ML/MIN Normal [facility] Comment on above: Performed By: #### L 550.60521, L500.35856, L500.91509, L500.49621 #### [facility] [address] [place] [address] HGB A1C GLYCOHBon 12-30-2019 HbA1c (Bld) [Mass fraction] 7.6 % High 4.3-6.0 [facility] Comment on above: Performed By: #### L 550.45948, L200.03971 #### [facility] [address] [place] [address] LIPIDon 12-30-2019 Cholesterol [Mass/Vol] 190 mg/dL Normal 0-199 [facility] Comment on above: Performed By: #### L 500.99539, L500.84697, L500.91829, L500.07508, L500.13620 #### [facility] [address] [place] [address] Cholesterol in HDL [Mass/Vol] 42 mg/dL Normal [place] 40 [facility] Comment on above: Result Comment: Brendon ents receiving Metamizole prior to venipuncture, may have falsely depressed results. Performed By: #### L 500.99522, L500.13570, L500.82904, L500.88506, L500.00773 #### [facility] [address] [place] [address] Cholesterol in LDL [Mass/Vol] 100 mg/dL Normal 0-129 [facility] Comment on above: Result Comment: ___C HOLESTEROL/HDL RATIO RISK___ CHD RISK = Total CHOL LDL HDL (CHOL/HDL) Recommended <200 <130 >40 <3.4 Borderline 200-239 130-159 3.4-4.99 High >240 >160 >5.0 Performed By: #### L 500.59370, L500.41433, L500.66120, L500.21943, L500.04135 #### [facility] [address] [place] [address] Triglyceride [Mass/Vol] 243 mg/dL High 30-149 [facility] Comment on above: Result Comment: Brendon ents receiving either N-Acetylcysteine (NAC) or Metamizole prior to venipuncture, may have falsely depressed results. Performed By: #### L 500.22525, L500.13083, L500.86050, L500.11028, L500.66381 #### [facility] [address] [place] [id number] 12-30-2019 [id number] 16.2 NG/ML Low 30.0-100.0 [facility] Comment on above: Result Comment: Defi ciency Less than 20 ng/mL Insufficiency 20 - Less than 30 ng/mL Sufficiency 30 - 100 ng/mL Performed By: #### L 500.02019, L500.50675, L500.21359, L500.46935, L500.72715 #### [facility] [address] [place] [address] CBC W/DIFFon 07-24-2019 BASO ABS 0.10 K/CU MM Normal 0-0.2 [facility] Comment on above: Performed By: #### L 200.63833 #### [facility] [address] [place] [address] Basophils/100 WBC (Bld) 0.7 % Normal 0-2 [facility] Comment on above: Performed By: #### L 200.41410 #### [facility] [address] [place] [address] EOS ABS 0.20 K/CU MM Normal 0-0.5 [facility] Comment on above: Performed By: #### L 200.53561 #### [facility] [address] [place] [address] Eosinophils/100 WBC (Bld) 2.2 % Normal 0-5 [facility] Comment on above: Performed By: #### L 200.32096 #### [facility] [address] [place] [address] Erythrocyte distribution width (RBC) [Ratio] 14.6 % High 11-14.5 [facility] Comment on above: Performed By: #### L [id number] #### [facility] [address] [place] [address] Hematocrit (Bld) [Volume fraction] 38.4 % Normal 35.0-47.0 [facility] Comment on above: Performed By: #### L [id number] #### [facility] [address] [place] [address] Hemoglobin (Bld) [Mass/Vol] 11.5 g/dL Normal 11.5-15.5 [facility] Comment on above: Performed By: #### L [id number] #### [facility] [address] [place] [address] IMMATR GRAN ABS 0.30 K/CU MM Normal Less than 2 [facility] Comment on above: Performed By: #### L [id number] #### [facility] [address] [place] [address] IMMATURE GRAN % 3.3 % Normal Less than 2 [facility] Comment on above: Performed By: #### L [id number] #### [facility] [address] [place] [address] Lymphocytes (Bld) [#/Vol] 2.10 K/CU MM Normal 0.9-4.4 [facility] Comment on above: Performed By: #### L [id number] #### [facility] [address] [place] [address] Lymphocytes/100 WBC (Bld) 28.0 % Normal 20-40 [facility] Comment on above: Performed By: #### L [id number] #### [facility] [address] [place] [address] MCHC (RBC) [Mass/Vol] 29.9 g/dL Low 32.0-36.0 [facility] Comment on above: Performed By: #### L [id number] #### [facility] [address] [place] [address] MCV (RBC) [Entitic vol] 88.3 fL Normal 80.0-99.0 M [facility] Comment on above: Performed By: #### L 200.22227 #### [facility] [address] [place] [address] MONO ABS 0.50 K/CU MM Normal 0.1-1.1 [facility] Comment on above: Performed By: #### L 200.38535 #### [facility] [address] [place] [address] Monocytes/100 WBC (Bld) 7.1 % Normal 2-10 M [facility] Comment on above: Performed By: #### L 200.97423 #### [facility] [place] [address] NEUTROPHIL ABS 4.40 K/CU MM Normal 2.0-8.3 [facility] Comment on above: Performed By: #### L 200.00280 #### [facility] [address] [place] [address] Neutrophils/100 WBC (Bld) 58.7 % Normal 45-75 [facility] Comment on above: Performed By: #### L 200.33352 #### [facility] [address] [place] [address] Nucleated RBC/100 WBC (Bld) [Ratio] 0.4 % Normal Less than 1 [facility] Comment on above: Performed By: #### L 200.71553 #### [facility] [address] [place] [address] Platelet mean volume (Bld) [Entitic vol] 8.8 fL Low 9.4-12.4 [facility] Comment on above: Performed By: #### L 200.41235 #### [facility] [address] [place] [address] Platelets (Bld) [#/Vol] 285 K/CU MM Normal 150-450 [facility] Comment on above: Performed By: #### L 200.17659 #### [facility] [address] [place], [place] [id number] RBC (Bld) [#/Vol] 4.35 M/CU MM Normal 3.90-5.30 [facility] Comment on above: Performed By: #### L 200.33929 #### [facility] [address] [place] [address] WBC (Bld) [#/Vol] 7.6 K/CUMM Normal 4.5-11.0 [facility] Comment on above: Performed By: #### L 200.87814 #### [facility] [address] [place] [address] [facility] Albumin [Mass/Vol] 3.4 g/dL Normal 3.2-5.0 [facility] Comment on above: Performed By: #### L 500.82477, L500.68087, L500.96402, L500.60907, L500.75503 #### [facility] [address] [place] [address] Albumin/Globulin [Mass ratio] 1.1 {ratio} Normal 0.8-2.0 [facility] Comment on above: Performed By: #### L 500.15570, L500.38723, L500.96299, L500.38834, L500.65496 #### [facility] [address] [place] [address] ALK PHOS 90 U/L Normal 45-117 [facility] Comment on above: Performed By: #### L 500.64271, L500.45917, L500.71263, L500.31915, L500.72112 #### [facility] [address] [place], [place] [address] ALT [Catalytic activity/Vol] 21 U/L Normal 13-61 [facility] Comment on above: Result Comment: RESU LTS MAY BE FALSELY DEPRESSED AFTER THE ADMINISTRATION OF SULFASALAZINE AND/OR SULFAPYRIDINE. Performed By: #### L 500.35018, L500.30249, L500.72135, L500.30276, L500.31289 #### [facility] [address] [place] [address] Anion gap [Moles/Vol] 16 mmol/L Normal 5-16 [facility] Comment on above: Performed By: #### L 500.98707, L500.57755, L500.31814, L500.73611, L500.95472 #### [facility] [address] [place] [address] BILI TOTAL 0.4 MG/DL Normal 0.2-1.0 [facility] Comment on above: Performed By: #### L 500.25400, L500.17441, L500.73996, L500.41265, L500.84005 #### [facility] [address] [place] [address] Calcium [Mass/Vol] 8.9 mg/dL Normal 8.5-10.1 [facility] Comment on above: Performed By: #### L 500.67929, L500.76259, L500.04150, L500.11829, L500.76430 #### [facility] [address] [place] [address] Chloride [Moles/Vol] 104 mmol/L Normal 98-107 [facility] Comment on above: Performed By: #### L 500.64609, L500.23571, L500.68976, L500.66208, L500.16223 #### [facility] [address] [place] [address] CO2 [Moles/Vol] 21 mmol/L Normal 21-32 [facility] Comment on above: Performed By: #### L 500.59367, L500.28120, L500.11497, L500.91884, L500.64496 #### [facility] [address] [place] [address] Creatinine [Mass/Vol] 0.802 mg/dL Normal 0.510-0.950 [facility] Comment on above: Result Comment: Brendon ents receiving either N-Acetylcysteine (NAC) or Metamizole prior to venipuncture, may have falsely depressed results. Performed By: #### L 500.59528, L500.62421, L500.31464, L500.13108, L500.00364 #### [facility] [address] [place], [place] [address] Globulin (S) [Mass/Vol] 3.2 g/dL Normal 2.2-4.2 M [facility] Comment on above: Performed By: #### L 500.51619, L500.89781, L500.27717, L500.39965, L500.85059 #### [facility] [address] [place] [address] Glucose [Mass/Vol] 231 mg/dL High 70-100 [facility] Comment on above: Result Comment: 70-1 00- Normal Fasting; 100-125 Impaired Fasting; greater than 126 on more than one result- Diabetes. ADA guidelines. Results may be falsely elevated after the administration of Sulfapyridine. Results may be falsely depressed after the administration of Sulfasalazine. Performed By: #### L 500.04244, L500.13818, L500.71406, L500.21057, L500.95840 #### [facility] [address] [place] [address] Potassium [Moles/Vol] 4.5 mmol/L Normal 3.5-5.1 [facility] Comment on above: Performed By: #### L 500.97678, L500.30786, L500.20518, L500.02577, L500.67011 #### [facility] [address] [place] [address] Protein [Mass/Vol] 6.6 g/dL Normal 6.0-8.5 [facility] Comment on above: Performed By: #### L 500.89600, L500.93508, L500.90874, L500.21087, L500.66228 #### [facility] [address] [place], [place] [address] SGOT (AST) 14 U/L Normal 8-34 [facility] Comment on above: Result Comment: RESU LTS MAY BE FALSELY DEPRESSED AFTER THE ADMINISTRATION OF SULFASALAZINE AND/OR SULFAPYRIDINE. Performed By: #### L 500.05589, L500.92610, L500.02641, L500.82618, L500.73252 #### [facility] [address] [place] [address] Sodium [Moles/Vol] 141 mmol/L Normal 136-145 [facility] Comment on above: Performed By: #### L 500.01182, L500.29104, L500.10465, L500.37350, L500.06579 #### [facility] [address] [place], [place] [address] Urea nitrogen [Mass/Vol] 15 mg/dL Normal 7-26 [facility] Comment on above: Performed By: #### L 500.30785, L500.79391, L500.51891, L500.77418, L500.21055 #### [facility] [address] [place] [address] Urea nitrogen/Creatinine [Mass ratio] 19 mg/mg Normal 15-24 [facility] Comment on above: Performed By: #### L 500.23823, L500.85830, L500.60824, L500.06761, L500.66351 #### [facility] [address] [place], [place] [address] GFR ESTon 07-24-2019 IF AMER Greater than 60 Normal [facility] Comment on above: Performed By: #### L 500.54004, L500.12969, L500.01739, L500.22565, L500.77448 #### [facility] [place] [address] IF non-AFR AMER Greater than 60 Normal [facility] Comment on above: Performed By: #### L 500.26129, L500.56923, L500.16706, L500.66964, L500.94188 #### [facility] [address] [place] [address] LIPIDon 07-24-2019 Cholesterol [Mass/Vol] 158 mg/dL Normal 0-199 [facility] Comment on above: Performed By: #### L 500.04534, L500.19428, L500.32342, L500.90521, L500.86800 #### [facility] [address] [place] [address] Cholesterol in HDL [Mass/Vol] 42 mg/dL Normal [place] 40 [facility] Comment on above: Result Comment: Brendon ents receiving Metamizole prior to venipuncture, may have falsely depressed results. Performed By: #### L 500.23055, L500.33539, L500.02775, L500.89820, L500.76255 #### [facility] [address] [place] [address] Cholesterol in LDL [Mass/Vol] 70 mg/dL Normal 0-129 [facility] Comment on above: Result Comment: ___C HOLESTEROL/HDL RATIO RISK___ CHD RISK = Total CHOL LDL HDL (CHOL/HDL) Recommended <200 <130 >40 <3.4 Borderline 200-239 130-159 3.4-4.99 High >240 >160 >5.0 Performed By: #### L 500.66635, L500.95384, L500.93396, L500.93351, L500.24720 #### [facility] [address] [place] [address] Triglyceride [Mass/Vol] 231 mg/dL High 30-149 M [facility] Comment on above: Result Comment: Brendon ents receiving either N-Acetylcysteine (NAC) or Metamizole prior to venipuncture, may have falsely depressed results. Performed By: #### L 500.65788, L500.37010, L500.21914, L500.86311, L500.02702 #### [facility] [address] [place] [address] T4on 07-24-2019 T4 [Mass/Vol] 9.5 ug/dL Normal 4.8-13.9 [facility] Comment on above: Result Comment: RESU LTS MAY BE FALSELY ELEVATED AFTER THE ADMINISTRATION OF SULFASALAZINE. Performed By: #### L 500.52019, L500.78032, L500.68364, L500.76116, L500.02748 #### [facility] [place] [id number] TSHon 07-24-2019 TSH Qn 4.990 UIU/ML High 0.358-3.740 [facility] Comment on above: Result Comment: 3rd generation ultra sensitive TSH Performed By: #### L 500.35218, L500.51182, L500.09537, L500.18734, L500.05404 #### [facility] [address] [place] [address]# [phone] Vital Signs Date Time Vital Sign Value Performing Clinician Kylee saleh 03-09-2024 08:58-0400 Body temperature 96.6 [degF] Janie Cortez MD Work Phone: [facility] [employer] 03-09-2024 08:58-0400 Diastolic blood pressure 59 mm[Hg] Janie Cortez MD Work Phone: [facility] [employer] 03-09-2024 08:58-0400 Heart rate 79 /min Janie Cortez MD Work Phone: [facility] [employer] 03-09-2024 08:58-0400 Respiratory rate 16 /min Janie Cortez MD Work Phone: [facility] [employer] 03-09-2024 08:58-0400 SaO2% (BldA) [Mass fraction] 100 % Janie Cortez MD Work Phone: [facility] [employer] 03-09-2024 08:58-0400 Systolic blood pressure 130 mm[Hg] Janie Cortez MD Work Phone: [facility] [employer] 02-28-2024 08:26-0400 Body temperature 99.1 [degF] Serge Stewart MD Work Phone: [employer] 02-28-2024 08:26-0400 Diastolic blood pressure 69 mm[Hg] Serge Stewart MD Work Phone: [employer] 02-28-2024 08:26-0400 Heart rate 80 /min Serge Stewart MD Work Phone: [employer] 02-28-2024 08:26-0400 Respiratory rate 18 /min Serge Stewart MD Work Phone: [employer] 02-28-2024 08:26-0400 SaO2% (BldA) [Mass fraction] 100 % Serge Stewart MD Work Phone: [employer] 02-28-2024 08:26-0400 Systolic blood pressure 142 mm[Hg] Serge Stewart MD Work Phone: [facility] 02-25-2024 04:56-0400 Body mass index (BMI) [Ratio] 41.5 kg/m2 Serge Stewart MD Work Phone: [facility] 02-25-2024 04:56-0400 Body weight 113.13 kg Serge Stewart MD Work Phone: [facility] 02-22-2024 11:00-0400 Body height 165.1 cm Serge Stewart MD Work Phone: [facility] 2022 11:43-0400 Body height 165.1 cm Agustin Barahona APRN.FINANCIAL DEVELOPER Work Phone: [facility] 2022 11:43-0400 Body temperature 98.49 [degF] Agustin Barahona [employer]ER.FINANCIAL DEVELOPER Work Phone: [facility] 2022 11:43-0400 Diastolic blood pressure 60 mm[Hg] Agustin Barahona [employer].FINANCIAL DEVELOPER Work Phone: [facility] 2022 11:43-0400 Heart rate 77 /min Agustin Barahona APRN.FINANCIAL DEVELOPER Work Phone: [facility] 2022 11:43-0400 SaO2% (BldA) [Mass fraction] 99 % Agustin Barahona [employer].FINANCIAL DEVELOPER Work Phone: [facility] 2022 11:43-0400 Systolic blood pressure 110 mm[Hg] Agustin Barahona APRN.FINANCIAL DEVELOPER Work Phone: [facility] 06-23-2022 13:05-0400 Body height 165.1 cm Agustin Barahona [employer] M[employer].FINANCIAL DEVELOPER Work Phone: [facility] 06-23-2022 13:05-0400 Body temperature 97.9 [degF] Agustin Barahona [employer] M[employer]ER.FINANCIAL DEVELOPER Work Phone: [facility] 06-23-2022 13:05-0400 Diastolic blood pressure 60 mm[Hg] Agustin Barahona [employer].FINANCIAL DEVELOPER Work Phone: [facility] 06-23-2022 13:05-0400 Heart rate 77 /min Agustin Barahona [employer].FINANCIAL DEVELOPER Work Phone: [facility] 06-23-2022 13:05-0400 SaO2% (BldA) [Mass fraction] 98 % Agustin Barahona [employer] M[employer].FINANCIAL DEVELOPER Work Phone: [facility] 06-23-2022 13:05-0400 Systolic blood pressure 122 mm[Hg] Agustin Barahona [employer].FINANCIAL DEVELOPER Work Phone: [facility] 05-07-2022 07:15-0400 Body temperature 96.21 [degF] Gigi Diehl MD Work Phone: [facility] 05-07-2022 07:15-0400 Diastolic blood pressure 74 mm[Hg] Gigi Diehl MD Work Phone: [facility] 05-07-2022 07:15-0400 Heart rate 73 /min Gigi Diehl MD Work Phone: [facility] 05-07-2022 07:15-0400 Respiratory rate 16 /min Gigi Diehl MD Work Phone: [facility] 05-07-2022 07:15-0400 SaO2% (BldA) [Mass fraction] 99 % Gigi Diehl MD Work Phone: [facility] 05-07-2022 07:15-0400 Systolic blood pressure 138 mm[Hg] Gigi Diehl MD Work Phone: [facility] 05-03-2022 04:25-0400 Body mass index (BMI) [Ratio] 48.79 kg/m2 Gigi Diehl MD Work Phone: [facility] 05-03-2022 04:25-0400 Body weight 133 kg Gigi Diehl MD Work Phone: [facility] 04-30-2022 16:32-0400 Body height 165.1 cm Gigi Diehl MD Work Phone: [facility] 03-22-2022 13:53-0400 Body temperature 99.39 [degF] Frankie Deng MD Work Phone: [facility] 03-22-2022 13:53-0400 Diastolic blood pressure 62 mm[Hg] Frankie Deng MD Work Phone: [facility] 03-22-2022 13:53-0400 Heart rate 85 /min Frankie Deng MD Work Phone: [facility] 03-22-2022 13:53-0400 Respiratory rate 18 /min Frankie Deng MD Work Phone: [facility] 03-22-2022 13:53-0400 SaO2% (BldA) [Mass fraction] 98 % Frankie Deng MD Work Phone: [facility] 03-22-2022 13:53-0400 Systolic blood pressure 122 mm[Hg] Frankie Deng MD Work Phone: [facility] 10-11-2021 11:27-0500 Body temperature 96.91 [degF] Quique Aranda MD Work Phone: [facility] 10-11-2021 11:27-0500 Diastolic blood pressure 78 mm[Hg] Quique Aranda MD Work Phone: [facility] 10-11-2021 11:27-0500 Heart rate 79 /min Quique Aranda MD Work Phone: [facility] 10-11-2021 11:27-0500 Respiratory rate 17 /min Quique Aranda MD Work Phone: [facility] 10-11-2021 11:27-0500 SaO2% (BldA) [Mass fraction] 100 % Quique Aranda MD Work Phone: [facility] 10-11-2021 11:27-0500 Systolic blood pressure 151 mm[Hg] Quqiue Aranda MD Work Phone: [facility] 10-11-2021 04:16-0500 Body mass index (BMI) [Ratio] 49.02 kg/m2 Quique Aranda MD Work Phone: [facility] 10-11-2021 04:16-0500 Body weight 129.55 kg Quique Aranda MD Work Phone: [facility] 10-10-2021 09:27-0500 Body height 162.6 cm Quique Aranda MD Work Phone: [facility] Encounters Encounter Date Encounter Type Care Provider Facility Start: 08-26-2025 ambulatory Lucy SALGADO Faci lity:[facility] Start: 08-03-2025 End: 08-03-2025 ambulatory Lucy SALGADO Facility:[facility] Start: 07-22-2025 End: 07-22-2025 ambulatory Lucy SALGADO Facility:[facility] Start: 07-06-2025 End: 07-06-2025 ambulatory Lucy SALGADO Facility:[facility] Start: 05-05-2025 End: 05-05-2025 ambulatory Lucy SALGADO Facility:[facility] Start: 04-21-2025 End: 04-21-2025 ambulatory Lucy SALGADO Facility:[facility] Start: 04-02-2025 ambulatory Lucy SALGADO Faci lity:[facility] Start: 02-12-2025 End: 02-12-2025 ambulatory Lucy SALGADO [facility] Work Phone: Start: 02-12-2025 End: 02-12-2025 Departed Referred Lucy Quick -Katia MEHTA Start: 02-12-2025 End: 02-12-2025 ambulatory Lucy SALGADO Facility:[facility] Start: 01-19-2025 End: 01-19-2025 ambulatory Lucy SALGADO [facility] Work Phone: Start: 01-19-2025 End: 01-19-2025 Departed Referred Lucy Quick -Bromley Jessica MEHTA Start: 01-19-2025 End: 01-19-2025 ambulatory Lucy Quick NAOMI Facility:[facility] Start: 12-19-2024 End: 12-19-2024 ambulatory Lucy Dustin SALGADO [facility] Work Phone: Start: 12-19-2024 End: 12-19-2024 Departed Referred Lucy Quick -Bromley [employer] Start: 12-19-2024 End: 12-19-2024 ambulatory Lucy Sarisherri SALGADO Facility:[facility] Start: 11-04-2024 End: 11-04-2024 Departed Referred Lucy Sarisherri -Bromley [employer] [facility] Start: 11-04-2024 End: 11-04-2024 ambulatory Lucy SALGADO Facility:[facility] Start: 10-09-2024 ambulatory Lucy Sarisherri SALGADO Faci lity:[facility] Start: 10-09-2024 Registered Referred Lucy Quick - Bromley [employer] [facility] Start: 10-02-2024 End: 10-02-2024 Departed Referred Lucy Quick -Bromley [employer] [facility] Start: 10-02-2024 End: 10-02-2024 ambulatory Lucy Sarisherri SALGADO Facility:[facility] Start: 09-17-2024 End: 09-17-2024 Departed Referred Lucy Sarisherri -[place] [employer] Start: 09-17-2024 End: 09-17-2024 ambulatory Lucy Sarisherri SALGADO Facility:[facility] Start: 03-05-2024 End: 03-09-2024 Evaluation and management of inpatient Janie Cortez MD Work Phone: [facility] Medical Surgical Unit MSU 4S Comment on above: UTI (urinary tract i nfection) (Primary Dx); Transient alteration of awareness; Lower urinary tract infectious disease; Edema, unspecified type; Edema of right upper arm Start: 02-21-2024 End: 02-28-2024 Evaluation and management of inpatient Serge Stewart MD Work Phone: [facility] Cardiac Progressive Care Unit PCU 2E Start: 12-31-2023 End: 12-31-2023 ambulatory [facility] Work Phone: Start: 12-31-2023 End: 12-31-2023 Departed Referred [facility] Start: 12-10-2023 End: 12-10-2023 ambulatory [facility] Work Phone: Start: 12-10-2023 End: 12-10-2023 Departed Referred [facility] Start: 10-04-2023 End: 10-04-2023 Departed Referred [facility] Start: 08-02-2023 End: 08-02-2023 ambulatory [facility] Work Phone: Start: 08-02-2023 End: 08-02-2023 Departed Referred [facility] Start: 07-16-2023 End: 07-16-2023 Departed Referred [facility] Start: 07-16-2023 Registered Referred [facility] Start: 07-03-2023 End: 07-03-2023 ambulatory [facility] Work Phone: Start: 07-03-2023 End: 07-03-2023 Departed Referred [facility] Start: 06-29-2023 Emergency department patient visit LUCY QUICK Facility:[facility] Start: 06-29-2023 End: 06-29-2023 ambulatory [facility] Work Phone: Start: 06-29-2023 End: 06-29-2023 Departed Referred [facility] Start: 05-25-2023 Telephone encounter Lucy Quick MD Work Phone: Geriatrics Comment on above: Consult Start: 05-21-2023 End: 05-21-2023 ambulatory [facility] Work Phone: Start: 05-21-2023 End: 05-21-2023 Departed Referred [facility] Start: 05-10-2023 Della silverman G[employer] M[employer]ER.FINANCIAL DEVELOPER Work Phone: [facility] Comment on above: Refill Request Start: 04-26-2023 Refill Agustin silverman APRN.FINANCIAL DEVELOPER Work Phone: [facility] Comment on above: Refill Request Start: 04-04-2023 End: 04-04-2023 ambulatory [facility] Work Phone: Start: 04-04-2023 End: 04-04-2023 Departed Referred [facility] Start: 03-30-2023 End: 03-30-2023 ambulatory [facility] Work Phone: Start: 03-30-2023 End: 03-30-2023 Departed Referred [facility] Start: 03-30-2023 Registered Referred [facility] Start: 03-20-2023 End: 03-20-2023 ambulatory [facility] Work Phone: Start: 03-20-2023 End: 03-20-2023 Departed Referred [facility] Start: 03-13-2023 End: 03-13-2023 ambulatory [facility] Work Phone: Start: 03-13-2023 End: 03-13-2023 Departed Referred [facility] Start: 03-13-2023 Registered Referred [facility] Start: 03-09-2023 Telephone encounter [place] RN [facility] Comment on above: Orders ([place] [facility] - ord er contact/deferral) Start: 03-02-2023 E-mail encounter fro m caregiver [facility] Provider [facility] Start: 03-02-2023 Patient encounter procedure [facility] Provider [facility] Comment on above: Appointment Change Start: 02-27-2023 End: 02-27-2023 ambulatory [facility] Work Phone: Start: 02-27-2023 End: 02-27-2023 Departed Referred [facility] Start: 02-27-2023 Registered Referred [facility] Start: 02-26-2023 End: 02-26-2023 ambulatory [facility] Work Phone: Start: 02-26-2023 End: 02-26-2023 Departed Referred [facility] Start: 02-26-2023 Registered Referred [facility] Start: 02-22-2023 Telephone encounter Kerry Parr [place] [facility] Comment on above: Orders ([facility] order co ntact/2nd letter) Start: 02-20-2023 Registered Referred [facility] Start: 02-19-2023 End: 02-19-2023 ambulatory [facility] Work Phone: Start: 02-19-2023 End: 02-20-2023 Departed Referred [facility] Start: 02-11-2023 End: 02-15-2023 ambulatory MORGAN DOMINGO BERNARD Facility:[facility] Start: 02-06-2023 Patient Outreach Saniya GILLETTE [employer] Consultant Comment on above: Transition Of Care ( SNF Update) Start: 02-02-2023 End: 02-02-2023 ambulatory [facility] Work Phone: Start: 02-02-2023 End: 02-02-2023 Departed Referred [facility] Start: 02-02-2023 Registered Referred [facility] Start: 01-29-2023 Patient Outreach Vy Almaguer [facility] Comment on above: Transition Of Care ( [facility] 01/28/23) Start: 01-28-2023 End: 01-28-2023 Emergency department patient visit AGUSTIN BARAHONA Facility:[facility] Start: 01-26-2023 Refill Deniz Wagoner Work Phone: [facility] [facility] [place] Comment on above: Refill Request Start: 01-26-2023 End: 01-26-2023 ambulatory [facility] Work Phone: Start: 01-26-2023 End: 01-26-2023 Departed Referred [facility] Start: 01-26-2023 Registered Referred [facility] Start: 01-17-2023 Telephone encounter Solange Arenas RN [facility] Comment on above: Orders; ak HFC appt contact Start: 01-17-2023 End: 01-17-2023 ambulatory [facility] Work Phone: Start: 01-17-2023 End: 01-17-2023 Departed Referred [facility] Start: 01-17-2023 Registered Referred [facility] Start: 01-15-2023 ambulatory Saniya Coleman RN AG VNS Start: 01-15-2023 Evaluation and manag ement of inpatient Saniya Coleman RN AG Otm Consultant Comment on above: Transition Of Care ( Inpatient TCM visit) Start: 01-15-2023 Telephone encounter Kerry HAGER [facility] Comment on above: Orders (HFC deferral ) Start: 01-12-2023 End: 01-16-2023 Evaluation and management of inpatient JULISSA ARMSTRONG Facility:[facility] Start: 01-10-2023 End: 01-10-2023 ambulatory [facility] Work Phone: Start: 01-10-2023 End: 01-10-2023 Departed Referred [facility] Start: 01-10-2023 Registered Referred [facility] Start: 01-06-2023 Refill Agustin silverman APRN.CNP Work Phone: [facility] Comment on above: Refill Request Start: 01-05-2023 End: 01-05-2023 Refill Deniz Silva MD Work Phone: [facility] [place] Comment on above: Refill Request Start: 01-05-2023 End: 01-05-2023 Departed Referred [facility] Start: 01-05-2023 Registered Referred [facility] Start: 01-04-2023 Registered Referred [facility] Start: 01-04-2023 Registered Referred [facility] Start: 01-02-2023 End: 01-02-2023 Emergency department patient visit [facility] Facility:[facility] Start: 01-02-2023 End: 01-02-2023 ambulatory [facility] Work Phone: Start: 01-02-2023 End: 01-02-2023 Departed Referred [facility] Start: 01-02-2023 Registered Referred [facility] Start: 12-25-2022 End: 12-25-2022 ambulatory [facility] Work Phone: Start: 12-25-2022 End: 12-25-2022 Departed Referred [facility] Start: 12-25-2022 Registered Referred [facility] Start: 12-22-2022 Refill Manisha Johnson PA-C Work Phone: Family Medicine Comment on above: Refill Request Start: 12-19-2022 Telephone encounter Kerry Parr [facility] Comment on above: Orders (HFC order co ntact/2nd letter) Start: 12-07-2022 Coordination of care plan Zelda Tong over [employer]SEMBL[employer] Primary Care Social Work Comment on above: Encounter for suppor t and coordination of transition of care (Primary Dx) Start: 12-05-2022 End: 12-05-2022 ambulatory [facility] Work Phone: Start: 12-05-2022 End: 12-05-2022 Departed Referred [facility] Start: 12-05-2022 Registered Referred [facility] Start: 11-29-2022 Refill Agustin silverman APRN.FINANCIAL DEVELOPER Work Phone: [facility] Comment on above: Refill Request Start: 11-28-2022 End: 11-28-2022 ambulatory [facility] Work Phone: Start: 11-28-2022 End: 11-28-2022 Departed Referred [facility] Start: 11-28-2022 Registered Referred [facility] Start: 11-27-2022 End: 11-27-2022 ambulatory [facility] Work Phone: Start: 11-27-2022 End: 11-27-2022 Departed Referred [facility] Start: 11-24-2022 End: 11-24-2022 ambulatory [facility] Work Phone: Start: 11-24-2022 End: 11-24-2022 Departed Referred [facility] Start: 11-24-2022 Registered Referred [facility] Start: 11-20-2022 Patient Outreach Saniya Coleman RN AG Otm Consultant Comment on above: Transition Of Care ( Discharge to SNF) Orders (HFC order co ntact/SNF letter) Start: 11-10-2022 End: 11-17-2022 ambulatory Krupa Aparicio RN Work Phone: AG VNS Start: 11-09-2022 Telephone encounter Agustin Mondragon Ra wleigh FINANCIAL DEVELOPER Work Phone: [facility] Comment on above: Home Care Arrangemen ts Transition Of Care ( Speed 10/28-11/08/22 [facility]) Start: 11-02-2022 Refill Agustin silverman APRN.CNP Work Phone: [facility] Comment on above: Refill Request Start: 10-31-2022 Telephone encounter Essiegiancarlo Sarkar GUM MIXER.FINANCIAL DEVELOPER Work Phone: [facility] Comment on above: Orders (HFC order co ntact/SNF letter) Start: 10-29-2022 Telephone encounter Odilia mercedes DO Work Phone: [facility] Comment on above: Medication Problem ( Called by SNF. Lyrica printed script was not sent) Start: 10-15-2022 End: 10-28-2022 Evaluation and management of inpatient AGUSTIN BARAHONA Facility:[facility] Start: 10-06-2022 Refill Agustin Mondragon Jarett silverman GUM MIXER.FINANCIAL DEVELOPER Work Phone: [facility] Comment on above: Refill Request Start: 10-05-2022 Refill Agustin Giancarlo silverman GUM MIXER.FINANCIAL DEVELOPER Work Phone: [facility] Comment on above: Refill Request Start: 10-03-2022 Telephone encounter Agustin Mondragon Ra lawson GUM MIXER.FINANCIAL DEVELOPER Work Phone: [facility] Comment on above: Patient Update Start: 09-29-2022 End: 09-29-2022 ambulatory Agustin Alvaradoterellherrera GUM MIXER.FINANCIAL DEVELOPER Work Phone: [facility] Care Comment on above: Recurrent UTI (urina ry tract infection) (Primary Dx); Bullous rash; Stage 3b chronic kidney disease (HCC); Type 2 diabetes mellitus with diabetic polyneuropathy, with long-term current use of insulin (HCC); Acute on chronic diastolic CHF (congestive heart failure) (HCC); Chronic respiratory failure with hypoxia (HCC) Start: 09-29-2022 End: 09-29-2022 Telemedicine consultation with patient Agustin Alvaradobilly GUM MIXER.FINANCIAL DEVELOPER Work Phone: [facility] Start: 09-28-2022 Refill Adele betancourt GUM MIXER.FINANCIAL DEVELOPER Work Phone: [facility] Comment on above: Refill Request Start: 09-25-2022 Refill Agustin silverman GUM MIXER.FINANCIAL DEVELOPER Work Phone: [facility] Comment on above: Refill Request Transition Of Care ( Patient call, TCM follow up ) Start: 09-11-2022 Telephone encounter Agustin lawson APRN.FINANCIAL DEVELOPER Work Phone: [facility] Comment on above: Results Start: 09-08-2022 Patient Outreach Krupa ponce RN Work Phone: [facility] Comment on above: Transition Of Care ( Return Patient call) Start: 09-08-2022 Refill Agustin silverman GUM MIXER.FINANCIAL DEVELOPER Work Phone: [facility] Comment on above: Refill Request Start: 08-31-2022 Refill Agustin silverman GUM MIXER.FINANCIAL DEVELOPER Work Phone: [facility] Consult[facility] Comment on above: Med Change Request Start: 08-30-2022 End: 08-31-2022 ambulatory AGUSTIN BARAHONA Facility:[facility] Start: 08-30-2022 End: 08-30-2022 Nursing evaluation of patient and report Nurse Card Chf 1 [facility] Comment on above: Congestive heart juan lure, unspecified HF chronicity, unspecified heart failure type (HCC) [I50.9 (ICD-10-CM)] (Primary Dx) Start: 08-30-2022 Telephone encounter Tea koroma GUM MIXER.FINANCIAL DEVELOPER Work Phone: [facility] [place] Comment on above: Appointment Start: 08-29-2022 Refill Agustin silverman APRN.FINANCIAL DEVELOPER Work Phone: [facility] Comment on above: Refill Request Start: 08-29-2022 Telephone encounter Agustin lawson APRN.FINANCIAL DEVELOPER Work Phone: [facility] Comment on above: Consult (PAIN MANAGE MENT) Start: 08-28-2022 Patient Outreach Krupa ponce RN Work Phone: [facility] Comment on above: Transition Of Care ( [facility] 08/22-08/27/22 TCM) Medication Problem ( Recent hospital discharge) Start: 08-26-2022 Telephone encounter Martín Carbajal MD Work Phone: [facility] Comment on above: Patient Update Start: 08-24-2022 Refill Agustin silverman GUM MIXER.FINANCIAL DEVELOPER Work Phone: [facility] Comment on above: Refill Request; Refi ll Request Start: 08-23-2022 Telephone encounter Estela Hassanron U[facility] Comment on above: Patient Update Start: 08-22-2022 End: 08-27-2022 Evaluation and management of inpatient ZULLY Yvonne DAMIAN Facility:[facility] Start: 08-22-2022 End: 08-22-2022 Emergency department patient visit AGUSTIN BARAHONA Facility:[facility] Start: 08-21-2022 Telephone encounter Deniz polo MD Work Phone: [facility] [place] Comment on above: Patient Update Patient Update (Leg swelling) Start: 08-17-2022 ambulatory Disha Camejo RN [facility] Comment on above: Primary Care Coordin ator- Other (PCC Chart review) Start: 08-17-2022 Coordination of care plan Disha rodrigues RN Otm Consultant Comment on above: Primary Care Coordin ator- Other (Primary Care Coordination Intake Attempt) Start: 2022 End: 2022 ambulatory AGUSTIN BARAHONA Facility:[facility] Start: 2022 End: 2022 Patient encounter procedure Agustin Barahona GUM MIXER.FINANCIAL DEVELOPER Work Phone: [facility] Comment on above: Ecthyma (Primary Dx) ; Leg swelling; Stage 3b chronic kidney disease (HCC); Primary hypertension; Type 2 diabetes mellitus with diabetic polyneuropathy, with long-term current use of insulin (HCC); Chronic heart failure with preserved ejection fraction (HFpEF) (HCC); Recurrent UTI (urinary tract infection); Physical debility Start: 08-11-2022 Refill Agustin silverman GUM MIXER.FINANCIAL DEVELOPER Work Phone: [facility] Comment on above: Refill Request Start: 08-08-2022 Telephone encounter Agustin lawson APRN.FINANCIAL DEVELOPER Work Phone: [facility] Comment on above: Refill Request Start: 08-04-2022 Refill Agustin silverman APRN.FINANCIAL DEVELOPER Work Phone: [facility] Comment on above: Refill Request Start: 08-02-2022 Telephone encounter Val andino MD Work Phone: [facility] Comment on above: Appointment Results (Labs done a t ED) Patient Question; Or ders (US DVT LOWER BILATERAL) Start: 07-27-2022 Telephone encounter Micheline de la torre RN [facility] Comment on above: Appointment Start: 07-20-2022 E-mail encounter fro m caregiver Ccf Provider [facility] Start: 07-20-2022 Patient encounter procedure Ccf Provider [facility] Comment on above: Appointment update Start: 07-20-2022 Telephone encounter [place] RN [facility] Comment on above: Orders (Appointment update) Start: 07-16-2022 Refill Deniz Wagoner Work Phone: [facility] [place] Comment on above: Refill Request Start: 07-14-2022 Telephone encounter Agustin lawson APRN.FINANCIAL DEVELOPER Work Phone: [facility] Comment on above: Patient Question (Me dication) Start: 07-06-2022 Telephone encounter Susan ponce [facility] Work Phone: Pharmacy Medicine Comment on above: Launch Check Out - O spring (Discharged from pharmD services) Start: 07-06-2022 End: 07-06-2022 ambulatory [facility] Facility:[facility] Start: 07-06-2022 End: 07-06-2022 ambulatory Susan Cuello [facility] Work Phone: Pharmacy Medicine Comment on above: Type 2 diabetes vishal itus with diabetic polyneuropathy, with long-term current use of insulin (HCC) Start: 07-06-2022 End: 07-06-2022 Telemedicine consultation with patient Susan Cuello [facility] Work Phone: STOK[facility] Start: 07-05-2022 Telephone encounter Solange Arenas RN [facility] Comment on above: ak HFC swelling Start: 07-05-2022 End: 07-05-2022 ambulatory Agustin Barahona APRN.FINANCIAL DEVELOPER Work Phone: [facility] Comment on above: Cellulitis of right lower extremity (Primary Dx); Rash; Chronic diastolic congestive heart failure (HCC); Type 2 diabetes mellitus with diabetic polyneuropathy, with long-term current use of insulin (HCC); Stage 3b chronic kidney disease (HCC) Start: 07-05-2022 End: 07-05-2022 Telemedicine consultation with patient Agustin Barahona APRN.FINANCIAL DEVELOPER Work Phone: [facility] Start: 06-29-2022 Telephone encounter Frankie Deng MD Work Phone: Mobile Services Comment on above: Patient Update (Gladys hunter PCP); cancelled [facility] Start: 06-27-2022 Telephone encounter Agustin lawson APRN.FINANCIAL DEVELOPER Work Phone: [facility] Comment on above: Consult (SLEEP MEDIC INE) Start: 06-26-2022 Telephone encounter Deniz polo MD Work Phone: [facility] Comment on above: AK-HFC;order request Results Consult (HOME HEALTH ) Patient Update Start: 06-23-2022 End: 06-23-2022 Patient encounter procedure Agustin Barahona APRN.FINANCIAL DEVELOPER Work Phone: [facility] Comment on above: Type 2 diabetes vishal itus with diabetic polyneuropathy, with long-term current use of insulin (HCC) (Primary Dx); Cellulitis of right lower extremity; Physical deconditioning; DIYA (obstructive sleep apnea); Chronic constipation; Recurrent UTI (urinary tract infection); Chronic respiratory failure with hypoxia (HCC); Chronic obstructive pulmonary disease, unspecified COPD type (HCC); Chronic heart failure with preserved ejection fraction (HFpEF) ([facility]); Coronary artery disease involving standing rock coronary artery of standing rock heart without angina pectoris; Stage 3b chronic kidney disease ([facility]); Elevated TSH Start: 06-12-2022 End: 06-12-2022 ambulatory [facility] Facility:[facility] Start: 06-09-2022 Refill Frankie Deng MD Work Phone: [facility] Comment on above: Refill Request Start: 05-30-2022 Refill Deniz Wagoner Work Phone: [facility] [place] Comment on above: Refill Request Start: 05-23-2022 End: 05-23-2022 [facility] Facility:[facility] Start: 05-23-2022 End: 05-23-2022 ambulatory Susan Cuello [facility] Work Phone: Pharmacy Medicine Comment on above: Type 2 diabetes vishal itus with diabetic polyneuropathy, with long-term current use of insulin (HCC) (Primary Dx) Start: 05-23-2022 End: 05-23-2022 Telemedicine consultation with patient Susan Cuello [facility] Work Phone: [facility] Start: 05-10-2022 End: 05-10-2022 [facility] Facility:[facility] Start: 05-10-2022 End: 05-10-2022 ambulatory Susan Cuello [facility] Work Phone: Pharmacy Medicine Comment on above: Type 2 diabetes vishal itus with diabetic polyneuropathy, with long-term current use of insulin (HCC) (Primary Dx) Start: 05-10-2022 End: 05-10-2022 Telemedicine consultation with patient Susan Cuello [facility] Work Phone: [facility] Start: 05-08-2022 Telephone encounter Frankie Deng MD Work Phone: [employer] [facility] Comment on above: Constipation; Edema Start: 04-30-2022 End: 05-07-2022 Evaluation and management of inpatient Gigi Diehl MD Work Phone: [facility] 4S TELEMETRY Comment on above: Urinary tract infect ion with hematuria, site unspecified (Primary Dx); Acute kidney injury superimposed on CKD (HCC) Start: 04-14-2022 Telephone encounter Susan ponce [facility] Work Phone: Pharmacy Medicine Comment on above: Care Coordination Start: 04-14-2022 End: 04-14-2022 [facility] Start: 04-14-2022 End: 04-14-2022 ambulatory Susan Cuello [facility] Work Phone: Pharmacy Medicine Comment on above: Type 2 diabetes vishal itus with diabetic polyneuropathy, with long-term current use of insulin (HCC) (Primary Dx) Start: 04-14-2022 End: 04-14-2022 Telemedicine consultation with patient Susan Cuello [facility] Work Phone: [facility] [place] Start: 04-13-2022 End: 04-14-2022 ambulatory Shea Childers GUM MIXER.FINANCIAL DEVELOPER Work Phone: [employer] [facility] Comment on above: Recurrent UTI (urina ry tract infection) (Primary Dx); Type 2 diabetes mellitus with diabetic polyneuropathy, with long-term current use of insulin (HCC); Chronic heart failure with preserved ejection fraction (HFpEF) (HCC); DDD (degenerative disc disease), lumbar Start: 04-13-2022 End: 04-13-2022 Telemedicine consultation with patient Shea Sheng Childers GUM MIXER.FINANCIAL DEVELOPER Work Phone: [facility] Start: 04-11-2022 Telephone encounter Frankie Deng MD Work Phone: [facility] Comment on above: POST ED Start: 03-28-2022 Telephone encounter Frankie Deng MD Work Phone: [employer] [facility] Comment on above: [facility] Start: 03-24-2022 Refill Moe Wagoner Work Phone: Pharmacy Medicine Comment on above: Refill Request; Refi ll Request Start: 03-24-2022 Telephone encounter Frankie Deng MD Work Phone: [facility] Comment on above: DME Order (oxygen ) Start: 03-23-2022 Telephone encounter Sheree cortés SAL Work Phone: [facility] Comment on above: Home Care (Confirmat ion Call ) Start: 03-22-2022 End: 03-23-2022 [facility] Comment on above: Type 2 diabetes vishal itus with diabetic polyneuropathy, with long-term current use of insulin (HCC) (Primary Dx) Type 2 diabetes vishal itus with diabetic polyneuropathy, with long-term current use of insulin (HCC) (Primary Dx); Stage 3b chronic kidney disease (HCC); Chronic respiratory failure with hypoxia (HCC); Restrictive lung disease; Chronic heart failure with preserved ejection fraction (HFpEF) ([facility]); Morbid obesity with BMI of 45.0-49.9, adult ([facility]); Recurrent UTI (urinary tract infection); Primary hypertension; Coronary artery disease involving standing rock heart without angina pectoris, unspecified vessel or lesion type; Mixed hyperlipidemia; DIYA (obstructive sleep apnea); Requires assistance with activities of daily living (ADL); Weakness of both legs; DDD (degenerative disc disease), lumbar; Spondylolisthesis of lumbar region; Trigger middle finger of right hand; History of COVID-19; Slow transit constipation Start: 03-22-2022 End: 03-22-2022 Telemedicine consultation with patient Susan Cuello [facility] Work Phone: [facility] Start: 03-17-2022 Refill Moe Wagoner Work Phone: Family Medicine Comment on above: Refill Request Start: 03-09-2022 Telephone encounter Merissa [facility] Comment on above: Oxygen Start: 03-08-2022 End: 03-08-2022 ambulatory Susan [facility] Work Phone: Pharmacy Medicine Comment on above: Type 2 diabetes vishal itus with diabetic polyneuropathy, with long-term current use of insulin (HCC) (Primary Dx); Medication management Refill Request Start: 03-08-2022 End: 03-08-2022 Telemedicine consultation with patient Susan Cuello [facility] Work Phone: [facility] Start: 02-28-2022 Telephone encounter Moe deleon MD Work Phone: Family Medicine Comment on above: Patient Update; Medi cation Follow-up Start: 02-27-2022 Telephone encounter Deniz polo MD Work Phone: [facility] Comment on above: Patient Update (D/C Plavic out of pill pack) Start: 02-27-2022 End: 02-27-2022 ambulatory Deniz Silva MD Work Phone: [facility] Comment on above: Primary hypertension (Primary Dx); Mixed hyperlipidemia; Coronary arteriosclerosis in standing rock artery; Chronic diastolic congestive heart failure (HCC); DIYA (obstructive sleep apnea) Start: 02-27-2022 End: 02-27-2022 Telemedicine consultation with patient Deniz Silva MD Work Phone: [facility] Start: 02-24-2022 Refill Deniz Wagoner Work Phone: [facility] [place] Comment on above: Refill Request Start: 02-19-2022 Refill Moe Wagoner Work Phone: [facility] Comment on above: Refill Request Start: 02-15-2022 End: 02-15-2022 ambulatory MOE MEYER Facility:[facility] Start: 02-15-2022 End: 02-15-2022 ambulatory Susan Cuello [facility] Work Phone: Pharmacy Medicine Comment on above: Type 2 diabetes vishal itus with diabetic polyneuropathy, with long-term current use of insulin (HCC) (Primary Dx) Start: 02-15-2022 End: 02-15-2022 Telemedicine consultation with patient Susan Copeland [facility] Work Phone: [facility] Start: 01-31-2022 End: 01-31-2022 ambulatory MOE MEYER Facility:[facility] Start: 01-30-2022 Refill Moe Wagoner Work Phone: Family Medicine [facility] Comment on above: Refill Request Start: 01-23-2022 Telephone encounter Susan ponce [facility] Work Phone: Pharmacy Medicine Comment on above: Patient Update Start: 01-18-2022 End: 01-18-2022 Nursing evaluation of patient and report Nurse Card Chf 2 [facility] Comment on above: Acute congestive hea rt failure, unspecified heart failure type (HCC) Start: 01-13-2022 End: 01-13-2022 ambulatory MOE MEYER Facility:[facility] Start: 01-06-2022 End: 01-06-2022 ambulatory MOE MEYER Facility:[facility] Start: 12-19-2021 End: 12-20-2021 ambulatory MOE MARQUEZ Facility:[facility] Start: 12-16-2021 End: 12-16-2021 ambulatory MOE MARQUEZ Facility:[facility] Start: 10-01-2021 End: 10-11-2021 Evaluation and management of inpatient Quique Aranda MD Work Phone: [facility] 2E TELEMETRY Procedures Date Procedure Procedure Detail Performing Clinician Start: 12-19-2024 Measurement of renal function Lucy SALGADO Comment on above: GFR Calc Start: 11-04-2024 Urine culture Lucy SALGADO Start: 03-09-2024 Glucose quantitative blood xcpt reagent strip Carmen Talamantes DO Work Phone: Start: 03-09-2024 Comprehensive metabolic panel Jose Lynn MD Work Phone: Start: 03-08-2024 Glucose quantitative blood xcpt reagent strip Carmen Talamantes DO Work Phone: Start: 03-08-2024 Glucose quantitative blood xcpt reagent strip Carmen Talamantes DO Work Phone: Start: 03-08-2024 Glucose quantitative blood xcpt reagent strip Carmen Talamantes DO Work Phone: Start: 03-08-2024 Glucose quantitative blood xcpt reagent strip Carmen Talamantes DO Work Phone: Start: 03-08-2024 Comprehensive metabolic panel Jose Lynn MD Work Phone: Start: 03-07-2024 Glucose quantitative blood xcpt reagent strip Carmen Talamantes DO Work Phone: Start: 03-07-2024 Glucose quantitative blood xcpt reagent strip Carmen Talamantes DO Work Phone: Start: 03-07-2024 End: 03-07-2024 Glucose quantitative blood xcpt reagent strip Carmen Talamantes DO Work Phone: Start: 03-07-2024 Glucose quantitative blood xcpt reagent strip Carmen Talamantes DO Work Phone: Start: 03-07-2024 End: 03-07-2024 [...] bacterial qu anttative colony count urine Janie Rizwana Cortez MD Work Phone: Start: 03-05-2024 Urinalysis [...] Culture Serge Stewart MD Work Phone: Start: 6 End: 02-21-2024 Comprehensive metabolic panel Serge bhatti MD Work Phone: Start: 02-21-2024 HC CUL TYP ID BLD PT HGN 6+ TRGT Serge Stewart MD Work Phone: Start: 12-10-2023 Urine culture Start: 07-16-2023 Urine culture Start: 06-29-2023 Urine culture Start: 05-21-2023 Urine culture Start: 01-02-2023 Electrocardiogram AGUSTIN BARAHONA Start: 10-15-2022 Electrocardiogram AGUSTIN BARAHONA Start: 08-23-2022 Echocardiography AGUSTIN BARAHONA Start: 06-23-2022 Hemoglobin A1c/Hemoglobin.total in Blood Agustin Barahona APRN.FINANCIAL DEVELOPER Work Phone: Start: 06-23-2022 Adult depression scr eening assessment Agustin Barahona APRN.FINANCIAL DEVELOPER Work Phone: Start: 05-06-2022 Blood count complete [...] Us retroperitoneal r eal time w/image complete Hemajomar Giron [employer] Work Phone: Start: 05-02-2022 Gluc bld gluc [...] Phone: Start: 05-01-2022 Assay of urine sodium Wild Giron [employer] Work Phone: Start: 05-01-2022 Gluc bld gluc [...] TO MG FOR LOW K Duyen Paz [employer] Work Phone: Start: 10-11-2021 Manual Differential panel - Blood Duyen Paz [employer] Work Phone: Start: 10-10-2021 Gluc bld gluc [...] TO MG FOR LOW K Duyen Paz [facility] Work Phone: Start: 10-10-2021 Blood count complete auto&auto difrntl wbc Duyen Paz [facility] Work Phone: Start: 10-10-2021 Manual Differential panel - Blood Duyen Paz [facility] Work Phone: Start: 10-09-2021 Gluc bld gluc [...] TO MG FOR LOW K Duyen Paz [facility] Work Phone: Start: 10-09-2021 Manual Differential panel - Blood Duyen Paz [facility] Work Phone: Start: 10-09-2021 Gluc bld gluc [...] thyroid sti mulating hormone tsh Duyen Paz [facility] Work Phone: Start: 10-08-2021 BASIC METABOLIC PANE L W/ REFLEX TO MG FOR LOW K Duyen Paz [facility] Work Phone: Start: 10-08-2021 Manual Differential panel - Blood Duyen Paz [facility] Work Phone: Start: 10-07-2021 Gluc bld gluc mntr d ev cleared fda spec home use Darius Knutson MD Work Phone: Start: 10-07-2021 Chloride urine Hema Giron [facility] Work Phone: Start: 10-07-2021 Urine albumin quantitative Harish Chavis MD Work Phone: Start: 10-07-2021 Gluc bld gluc mntr d ev cleared fda spec home use Quique Aranda MD Work Phone: Start: 10-07-2021 Pulmonary perfusion imaging particulate Saniya Oshea [facility] Work Phone: Start: 10-07-2021 Radiologic exam chest 2 views Saniya Oshea [facility] Work Phone: Start: 10-07-2021 Gluc bld gluc mntr d ev cleared fda spec home use Darius Knutson MD Work Phone: Start: 10-07-2021 Gluc bld gluc mntr d ev cleared fda spec home use Darius Knutson MD Work Phone: Start: 10-07-2021 BASIC METABOLIC PANE L W/ REFLEX TO MG FOR LOW K Duyen Paz [facility] Work Phone: Start: 10-07-2021 Blood count complete auto&auto difrntl wbc Duyen Paz [facility] Work Phone: Start: 10-07-2021 Manual Differential panel - Blood Duyen Paz [employer] [facility] Work Phone: Start: 10-06-2021 Dup-scan xtr veins c omplete bilateral study Saniya Oshea [employer] [facility] Work Phone: Start: 10-06-2021 End: 10-06-2021 Gluc bld gluc mntr dev cleared fda spec home use Darius Knutson MD Work Phone: Start: 10-06-2021 BASIC METABOLIC PANE L W/ REFLEX TO MG FOR LOW K Duyen Paz [employer] [facility] Work Phone: Start: 10-06-2021 Manual Differential panel - Blood Duyen Paz [employer] [facility] Work Phone: Start: 10-05-2021 Gluc bld gluc [...] End: 10-05-2021 Potassium serum plasma/whole blood Duyen Paz [employer] [facility] Work Phone: Start: 10-05-2021 BASIC METABOLIC PANE L W/ REFLEX TO MG FOR LOW K Duyen Paz [employer] [facility] Work Phone: Start: 10-05-2021 Blood count complete auto&auto difrntl wbc Duyen Paz [employer] [facility] Work Phone: Start: 10-04-2021 Gluc bld gluc [...] TO MG FOR LOW K Duyen Paz [employer] Work Phone: Start: 10-04-2021 Natriuretic peptide [place] wojciech Adenike LuHolcomb [employer] Work Phone: Start: 10-03-2021 Gluc bld gluc mntr d ev cleared fda spec home use Darius Knutson MD Work Phone: Start: 10-03-2021 Gluc bld gluc mntr d ev cleared fda spec home use Darius Knutson MD Work Phone: Start: 10-03-2021 Us retroperitoneal r eal time w/image complete Duyen Paz [employer] Work Phone: Start: 10-03-2021 Echo tthrc r-t 2d w/ wom-mode compl spec&colr d Duyen Paz [employer] Work Phone: Start: 10-03-2021 Creatinine other source Duyen Paz [employer] Work Phone: Start: 10-03-2021 Gluc bld gluc [...] me thod nos each organism Duyen Paz [employer] Work Phone: Start: 10-02-2021 STREP PNEUMONIAE ANTIGEN Duyen Paz [employer] Work Phone: Start: 10-02-2021 Comprehensive metabolic panel [...] - Tdap) DTaP/Tdap/Td vaccine (2 - Tdap) [facility] Start: 09-27-2026 DTaP/Tdap/Td Vaccines (2 - Tdap) DTaP/Tdap/Td Vaccines (2 - Tdap) [facility] Start: 09-27-2026 Urine microalbumin profile DTAP,TDAP,TD (2 - Tdap) [facility] Start: 09-27-2026 [facility] Start: 03-09-2025 Creatinine measurement Creatinine Level [facility] Start: 03-09-2025 Diabetes: Estimated Glomerular Filtration Rate for Kidney [facility] Diabetes: Estimated Glomerular Filtration Rate for Kidney [facility] Start: 03-09-2025 [address] measurement Potassium Level [facility] Start: 02-27-[address] [facility] Start: 02-27-[address] [facility] Start: 02-21-[address] [facility] Start: 02-14-2024 HEMOGLOBIN/HEMATOCRIT HEMOGLOBIN/HEMATOCRIT [facility] Start: 02-14-2024 Hepatitis B surface antibody level LDL CHOLESTEROL [facility] Start: 02-14-2024 SERUM CREATININE SERUM CREATININE [facility] Start: 01-29-2024 HEMOGLOBIN/HEMATOCRIT HEMOGLOBIN/HEMATOCRIT [facility] Start: 01-29-2024 SERUM CREATININE SERUM CREATININE [facility] Start: 01-17-2024 SERUM CREATININE SERUM CREATININE [facility] Start: 01-16-2024 HEMOGLOBIN/HEMATOCRIT HEMOGLOBIN/HEMATOCRIT [facility] Start: 01-16-2024 SERUM CREATININE SERUM CREATININE [facility] Start: 01-03-2024 HEMOGLOBIN/HEMATOCRIT HEMOGLOBIN/HEMATOCRIT [facility] Start: 01-03-2024 SERUM CREATININE SERUM CREATININE [facility] Start: 11-10-2023 HEMOGLOBIN/HEMATOCRIT HEMOGLOBIN/HEMATOCRIT [facility] Start: 11-09-2023 SERUM CREATININE SERUM CREATININE [facility] Start: 10-24-2023 HEMOGLOBIN/HEMATOCRIT HEMOGLOBIN/HEMATOCRIT [facility] Start: 10-24-2023 SERUM CREATININE SERUM CREATININE [facility] Start: 09-29-2023 ANNUAL PCP TEAM CHRONIC DISEASE VISIT ANNUAL PCP TEAM CHRONIC DISEASE VISIT [facility] Start: 08-27-2023 SERUM CREATININE SERUM CREATININE [facility] Start: 08-26-2023 SERUM CREATININE SERUM CREATININE [facility] Start: 08-25-2023 HEMOGLOBIN/HEMATOCRIT HEMOGLOBIN/HEMATOCRIT [facility] Start: 08-24-2023 Hepatitis B screening URINE ALBUMIN:CREATININE RATIO [facility] Start: 08-23-2023 HEMOGLOBIN/HEMATOCRIT HEMOGLOBIN/HEMATOCRIT [facility] Start: 08-23-2023 SERUM CREATININE SERUM CREATININE [facility] Start: 2023 ANNUAL PCP TEAM CHRONIC DISEASE VISIT ANNUAL PCP TEAM CHRONIC DISEASE VISIT [facility] Start: 2023 BP CONTROLLED (<130/80) BP CONTROLLED (<130/80) [facility] Start: 08-15-2023 Hemoglobin A1c/Hemoglobin.total in Blood HBA1C [facility] Start: 08-01-2023 HEMOGLOBIN/HEMATOCRIT HEMOGLOBIN/HEMATOCRIT [facility] Start: 08-01-2023 SERUM CREATININE SERUM CREATININE [facility] Start: 07-19-2023 HEMOGLOBIN/HEMATOCRIT HEMOGLOBIN/HEMATOCRIT [facility] Start: 07-19-2023 SERUM CREATININE SERUM CREATININE [facility] Start: 07-05-2023 ANNUAL PCP TEAM CHRONIC DISEASE VISIT ANNUAL PCP TEAM CHRONIC DISEASE VISIT [facility] Start: 06-29-2023 COVID-19 Vaccine () COVID-19 Vaccine () [employer] Start: 06-29-2023 Influenza vaccination [facility] Start: 06-29-2023 Urine culture Urine Culture [facility] Start: 06-29-2023 [facility] Start: 06-23-2023 Adult depression screening assessment DEPRESSION SCREENING [facility] Start: 06-23-2023 ANNUAL PCP TEAM CHRONIC DISEASE VISIT ANNUAL PCP TEAM CHRONIC DISEASE VISIT [facility] Start: 06-23-2023 BP CONTROLLED (<130/80) BP CONTROLLED (<130/80) [facility] Start: 06-23-2023 HEMOGLOBIN/HEMATOCRIT HEMOGLOBIN/HEMATOCRIT [facility] Start: 06-23-2023 Hepatitis B surface antibody level LDL CHOLESTEROL [facility] Start: 06-23-2023 SERUM CREATININE SERUM CREATININE [facility] Start: 04-30-2023 HEMOGLOBIN/HEMATOCRIT HEMOGLOBIN/HEMATOCRIT [facility] Start: 04-13-2023 ANNUAL PCP TEAM CHRONIC DISEASE VISIT ANNUAL PCP TEAM CHRONIC DISEASE VISIT [facility] Start: 04-10-2023 HEMOGLOBIN/HEMATOCRIT HEMOGLOBIN/HEMATOCRIT [facility] Start: 04-10-2023 SERUM CREATININE SERUM CREATININE [facility] Start: 03-22-2023 ANNUAL PCP TEAM CHRONIC DISEASE VISIT ANNUAL PCP TEAM CHRONIC DISEASE VISIT [facility] Start: 03-22-2023 BP CONTROLLED (<130/80) BP CONTROLLED (<130/80) [facility] Start: 12-24-2022 Hemoglobin A1c/Hemoglobin.total in Blood HBA1C [facility] Start: 12-19-2022 ANNUAL PCP TEAM CHRONIC DISEASE VISIT ANNUAL PCP TEAM CHRONIC DISEASE VISIT [facility] Start: 10-29-2022 ADVANCE DIRECTIVE DISCUSSION ADVANCE DIRECTIVE DISCUSSION [facility] Start: 10-29-2022 DEPRESSION ASSESSMENT DEPRESSION ASSESSMENT [facility] Start: 10-11-2022 Creatinine measurement [facility] Start: 10-11-2022 [facility] Start: 10-07-2022 Diabetes: Urine Albumin-Creatinine Ratio for [facility]ney [facility] Diabetes: Urine Albumin-Creatinine Ratio for Kidney [facility] Start: 10-07-2022 Hepatitis B screening URINE ALBUMIN:CREATININE RATIO [facility] Start: 10-07-2022 Urine screening for protein Diabetic microalbuminuria test [facility] Start: 08-26-2022 BP CONTROLLED (<130/80) BP CONTROLLED (<130/80) [facility] Start: 08-26-2022 Hepatitis B surface antibody level LDL CHOLESTEROL [facility] Start: 08-26-2022 Lipid panel Lipids [facility] Start: 08-26-2022 SERUM CREATININE SERUM CREATININE [facility] Start: 2022 ADVANCE DIRECTIVE DISCUSSION ADVANCE DIRECTIVE DISCUSSION [facility] Start: 2022 BONE DENSITY BONE DENSITY [facility] Start: 07-07-2022 HEMOGLOBIN/HEMATOCRIT HEMOGLOBIN/HEMATOCRIT [facility] Start: 06-29-2022 Influenza vaccination [facility] Start: 06-21-2022 Adult depression screening assessment DEPRESSION SCREENING [facility] Start: 05-23-2022 End: 10-28-2022 Hemoglobin A1c in Blood HGB A1C Lab Routine Type 2 diabetes mellitus with diabetic polyneuropathy, with long-term current use of insulin (HCC) Expected: 05/23/2022 (Approximate), Expires: 10/28/2022 [facility] Work Phone: Comment on above: Expected: 05/23/2022 (Approximate), Expi res: 10/28/2022 Start: 05-14-2022 End: 05-07-2023 Basic metabolic 2000 panel - Serum or Plasma Basic Metabolic Panel Lab Routine Acute kidney injury superimposed on CKD (HCC) Expected: 05/14/2022, Expires: 05/07/2023 [facility] Work Phone: Comment on above: Expected: 05/14/2022, Expires: 3 Start: 03-25-2022 End: 05-25-2022 CBC panel - Blood by Automated count CBC Lab Routine Type 2 diabetes mellitus with diabetic polyneuropathy, with long-term current use of insulin (HCC) Expected: 03/25/2022, Expires: 05/25/2022 [facility] Work Phone: Comment on above: Expected: 03/25/2022, Expires: 2 Start: 03-25-2022 End: 05-25-2022 Comprehensive metabolic 2000 panel - Serum or Plasma COMP METABOLIC PANEL Lab Routine Type 2 diabetes mellitus with diabetic polyneuropathy, with long-term current use of insulin (HCC) Expected: 03/25/2022, Expires: 05/25/2022 [facility] Work Phone: Comment on above: Expected: 03/25/2022, Expires: 2 Start: 03-25-2022 End: 05-25-2022 Hemoglobin A1c/Hemoglobin.total in Blood HGB A1C Lab Routine Type 2 diabetes mellitus with diabetic polyneuropathy, with long-term current use of insulin (HCC) Expected: 03/25/2022, Expires: 05/25/2022 [facility] Work Phone: Comment on above: Expected: 03/25/2022, Expires: 2 Start: 03-25-2022 End: 05-25-2022 LIPID PANEL, NONFASTING LIPID PANEL, NONFASTING Lab Routine Type 2 diabetes mellitus with diabetic polyneuropathy, with long-term current use of insulin (HCC) Expected: 03/25/2022, Expires: 05/25/2022 [facility] Work Phone: Comment on above: Expected: 03/25/2022, Expires: 2 Start: 03-25-2022 End: 05-25-2022 Thyrotropin [Units/volume] in Serum or Plasma TSH BLD Lab Routine Primary hypertension Expected: 03/25/2022, Expires: 05/25/2022 [facility] Work Phone: Comment on above: Expected: 03/25/2022, Expires: 2 Start: 11-26-2021 Hemoglobin A1c/Hemoglobin.total in Blood HBA1C [facility] Start: 11-15-2021 3 comp foot exam completed DIABETIC FOOT EXAM [facility] Start: 10-29-2021 DEPRESSION ASSESSMENT DEPRESSION ASSESSMENT [facility] Start: 10-04-2021 [facility] Start: 06-30-2021 PNEUMOCOCCAL (2 - PCV) PNEUMOCOCCAL (2 - PCV) [facility] Start: 06-30-2021 Pneumococcal 0-64 years Vaccine (2 - PCV) Pneumococcal 0-64 years Vaccine (2 - PCV) [facility] Start: 06-30-2021 PNEUMOCOCCAL: 65+ (2 - PCV) PNEUMOCOCCAL: 65+ (2 - PCV) [facility] Start: 2017 RSV Immunization aged 60 or older (1 - 1-dose 60+ series) RSV Immunization aged 60 or older (1 - 1-dose 60+ series) [facility] Start: 2017 [facility] Start: 2007 Screening for malignant neoplasm of breast [facility] Start: 2007 Shingles vaccine (1 of 2) Shingles vaccine (1 of 2) [facility] Start: 2007 Zoster Vaccines (1 of 2) Zoster Vaccines (1 of 2) [facility] Start: 2007 [facility] Start: 2002 COLOGUARD (FIT-DNA) COLOGUARD (FIT-DNA) [facility] Start: 2002 Colonoscopy COLONOSCOPY [facility] Start: 2002 COLORECTAL CANCER SCREENING COLORECTAL CANCER SCREENING [facility] Start: [address] COLONOGRAPHY [facility] Start: 2002 FECAL OCCULT BLOOD FECAL OCCULT BLOOD [facility] Start: 2002 Screening for malignant neoplasm of colon [facility] Start: 2002 SIGMOIDOSCOPY SIGMOIDOSCOPY [facility] Start: 1997 Mammography MAMMOGRAM [facility] Start: 1997 Screening for malignant neoplasm of breast [facility] Start: 1992 [facility] Start: 1987 Screening for malignant neoplasm of cervix [facility] Start: 1987 Zoledronic acid therapy ALPHA-1 ANTITRYPSIN DEFICIENCY SCREENING [facility] Start: 1978 Screening for malignant neoplasm of cervix [facility] Start: 1975 Diabetic retinal exam Diabetic retinal exam [facility] Start: 1975 Hepatitis C screening [facility] Start: 1972 HIV screening [facility] Start: 1969 Depression Monitoring Depression Monitoring [facility] Start: 1969 Depression Screen Depression Screen [facility] Start: 1969 [facility] Start: 1967 Diabetic foot examination [facility] Start: [address] [facility] Start: 1967 Hemoglobin A1c measurement A1C test (Diabetic or Prediabetic) [facility] Start: 1967 Hepatitis C antibody, confirmatory test DILATED RETINAL EXAM [facility] Start: 1967 Lipid panel [facility] Start: 1967 Preventive dental service [facility] Start: 1962 COVID-19 Vaccine (1) COVID-19 Vaccine (1) [facility] Start: 1957 Annual Wellness Visit (AWV) Annual Wellness Visit (AWV) [facility] Start: 1957 Echocardiography Echocardiogram [facility] Start: 1957 Hepatitis C screening [facility] Start: 1957 Lipid panel [facility] Start: 1957 Medicare Annual Wellness (AWV) Medicare Annual Wellness (AWV) [facility] Start: 1957 Screening for malignant neoplasm of colon [facility] [employer] Start: [address] [facility] Start: 1957 [facility] Bacteria identified in Blood by Culture [facility] [employer] Work Phone: End: 05-07-2022 Basic metabolic 2000 panel - Serum or Plasma Basic Metabolic Panel Lab Routine One Time for 1 Occurrences starting 05/07/2022 until 05/07/2022 [facility] Work Phone: Comment on above: One Time for 1 Occurrences starting 04/28 until 05/07/2022 Basic Metabolic Pane l w/ Reflex to MG [facility] Work Phone: End: 02-21-2024 Blood gases, venous measurement [facility] [employer] Work Phone: CBC W Auto Different ial panel - Blood [facility] Work Phone: CBC W Auto Different ial panel - Blood [facility] Work Phone: Comment on above: Daily until discontinued starting 2021, 6 completed Comprehensive Metabo lic Panel w/ Reflex to MG Comprehensive Metabolic Panel w/ Reflex to MG Lab Routine Daily until discontinued starting 05/01/2022, 6 completed [facility] Work Phone: Comment on above: Daily until discontinued starting 2021, 6 completed End: 04-30-2022 Culture, Blood 1 [facility] Work Phone: Comment on above: One Time for 1 Occurrences starting 12/2021 until 04/30/2022 End: 04-30-2022 Culture, Blood 2 [facility] Work Phone: Comment on above: One Time for 1 Occurrences starting 12/2021 until 04/30/2022 End: 10-02-2021 Culture, Respiratory [facility] Work Phone: End: 09-15-2023 Dup-scan xtr veins complete bilateral study US DVT LOWER BILAT Radiology LALA Leg swelling 1 Occurrences starting 2022 until 09/15/2023 [facility] Work Phone: Comment on above: 1 Occurrences starting 2022 until 09/15/2023 End: 09-01-2023 Dup-scan xtr veins complete bilateral study US DVT LOWER BILAT Radiology Routine Bilateral leg edema 1 Occurrences starting 08/02/2022 until 09/01/2023 [facility] Work Phone: Comment on above: 1 Occurrences starting 08/02/2022 until 09/01/2023 Glucose [Mass/volume ] in Serum or Plasma [facility] Work Phone: Glucose [Mass/volume ] in Serum or Plasma [facility] Work Phone: Glucose [Mass/volume ] in Serum or Plasma [facility] Work Phone: Comment on above: As Needed until discontinued starting 4X Daily (AC & HS) u ntil discontinued starting 04/30/2022 Hemoglobin A1c/Hemoglobin.total in Blood HEMOGLOBIN A1C (POC) Lab Routine Type 2 diabetes mellitus with diabetic polyneuropathy, with long-term current use of insulin (HCC) Ordered: 06/23/2022 [facility] Work Phone: Comment on above: Ordered: 06/23/2022 End: 04-30-2022 Lactate, Sepsis [facility] Work Phone: Comment on above: Now Then Every 2hr for 2 Occurrences sta rting 04/30/2022 until 04/30/2022, 1 completed End: 10-02-2021 Microscopic observation [Identifier] in Unspecified specimen by Gram stain [employer] Phone: Oxygen therapy [Mini mum Data Set] [facility] Work Phone: Oxygen therapy [Mini mum Data Set] [facility] Work Phone: Oxygen therapy [Mini mum Data Set] Initiate Oxygen Therapy Protocol Respiratory Care Routine As Needed until discontinued starting 04/30/2022 [employer] Phone: Comment on above: As Needed until discontinued starting End: 07-23-2023 PAP TITRATION PSG (CPAP, BIPAP, ASV) PAP TITRATION PSG (CPAP, BIPAP, ASV) Procedures Routine DIYA (obstructive sleep apnea) 1 Occurrences starting 06/23/2022 until 07/23/2023 [facility] Work Phone: Comment on above: 1 Occurrences starting 06/23/2022 until 07/23/2023 End: 10-07-2021 Urinalysis with Microscopic [facility] Work Phone: End: 10-03-2021 Wound ostomy eval and treat [facility] Work Phone: [facility] Immunizations Immunization Date Immunization Notes Care Provider Fa [facility] 08-26-2021 influenza, injectabl e, quadrivalent, contains preservative Nurse 2 [facility] 09-06-2020 influenza, high dose seasonal, preservative-free Nurse 2 [facility] 06-30-2020 influenza, injectabl e, quadrivalent, preservative free Nurse 2 [facility] 06-30-2020 pneumococcal polysac charide vaccine, 23 valent Nurse 2 [facility] 09-27-2016 diphtheria, tetanus toxoids and acellular pertussis vaccine Nurse 2 [facility] Payers Date Payer Category Payer Self-pay 2021 Medicaid MEDICAID [facility] MEDICAID [id number] 2021-Present [phone] [address] [place] [address] Medicaid [id number] 2021 Medicaid [id number] 2021 Medicare [facility] MEDICARE [facility] DUAL COMPLETE HMO SNP [id number] 2021-[facility] [phone] [address] [place] [address] Medicare [id number] 2021 Unknown [id number] 2021 Medicare [id number] 2020 Medicaid [id number] 2014 Medicare [id number] 2014 Medicare [id number] Unknown [id number] Unknown [id number] Unknown [id number] Unknown [id number] Unknown [id number] Unknown [id number] Unknown [id number] Unknown [id number] Unknown [id number] Unknown [id number] Unknown [id number] Unknown [id number] Unknown [id number] Unknown [id number] Social History Date Type Detail Facility Start: 10-02-2021 End: 06-23-2022 Tobacco smoking status NHIS Ex-smoker [facility] Work Phone: Start: 10-02-2021 End: 06-23-2022 Tobacco use and exposure Smokeless tobacco non-user [employer] Phone: Start: 1955 Sex Assigned At [facility] Work Phone: End: 08-29-2011 History of tobacco use Current smoker [facility] Work Phone: End: 08-29-2011 History of tobacco use Cigarette Smoker [facility] Work Phone: Start: 12-19-2021 End: 02-11-2023 Alcohol intake Lifetime non-drinker (finding) [facility] Start: 10-10-2020 End: 11-11-2022 History SDOH Alcohol Frequency 1 [facility] Start: 01-08-2022 End: 09-29-2022 Exposure to SARS-CoV-2 (event) Unable to assess [facility] Start: 02-17-2022 End: 08-22-2022 Exposure to SARS-CoV-2 (event) Not sure [facility] Start: 11-11-2022 End: 02-13-2023 History SDOH Financial 5 [facility] Start: 11-11-2022 End: 02-13-2023 History SDOH Transport Med 2 [facility] Start: 1955 Sex Assigned At Female [facility] Start: 02-11-2023 End: 03-06-2024 History of Social function [facility] Work Phone: Start: 02-11-2023 End: 03-06-2024 Tobacco use panel [facility] Work Phone: How hard is it for y ou to pay for the very basics like food, housing, medical care, and heating Not hard at all [facility] Work Phone: (I/We) worried wheth er (my/our) food would run out before (I/we) got money to buy more. Never true [facility] Work Phone: In the past 12 month s, was there a time when you were not able to pay the mortgage or rent on time? No [facility] Work Phone: How often to you hav e a drink containing alcohol? Never [facility] Start: 03-06-2024 Alcohol intake Ex-drinker (finding) [facility] [employer] Work Phone: Start: 01-02-2025 End: 02-05-2025 Sex Female (finding) [facility] Medical Equipment Procedure Code Equipment [...] 07:08 PM Patient Name: KIMBERLY PATEL Location: [address]/[facility] [id number] Date of : 1955 Placement Information Referral Type:Long-Term ICF - Return Referral ID:[id number] Provider Name:[facility] [place] [facility] Address 1:[address] [facility] Address 2: City:[place] Selection Factors:Returning to Facility State:[place] Care Coordination Daily Note/Update Clinical Update: active discharge orders Discharge Plan: return to [facility] Discharge Barriers: none Chart reviewed. Received message from attending stating patient is cleared for discharge. Discharge orders in. ANN and med rec complete. Submitted ride request via [employer] - awaiting acceptance and confirmation. Received notification that cot transportation has been setup for 1000 with [employer]. Phoned patient's daughter, Alexandro Cote, at [phone]. Received VM identifying full name. LM to notify of patient discharge and transport time. Notified RN. RN will notify patient. Messaged facility via OfficialVirtualDJ to notify. Sent AVS and MAR to facility via CarePort. TCC will remain available for any additional discharge needs. Care Coordination Daily Note/Update Clinical Update: blood cultures from 03/07 resulted as normal this AM so, per 03/07 ID note, no further antimicrobial treatment is needed. No leukocytosis per this morning's labs. Discharge Plan: return to [facility] Discharge Barriers: clinical stability Chart reviewed. Messaged attending to check on clinical stability for discharge. Awaiting response back. Received response back stating, further discussion with ID yesterday they were recommending negative cultures x72 hours, so patient will not be discharged today. if labs are stable tomorrow, plan for discharge tomorrow." TCC will continue to follow. Per Dr. Talamantes's note, anticipated dc is for 03/08/24. Pt transport is set in WILL CALL with [employer] for 03/08/24. Images from the original note were not included. Care Management Progress Note Repeat blood cultures this am. Urine culture in process. Monitor off iv antibiotics. [facility] Patient is prison resident there. . Discharge Milestones and Delays [...] (Days): 1 GMLOS: 3.4 Referral placed to [facility] for return via Careport per TCC request. Await review and response regarding ability to accept. TCC notified. Care Managment Initial Assessment Date: 03/06/2024 Patient Name: Kimberly Patel : 1955 Patient Information Source of Information: (recent assessment 02/22/24) Name/Contact Information: ALEXANDRO COTE [phone] DAUGHTER Cognition/Language: Confused at baseline Permission given to speak with patient passenger service representative/caregiver as indicated: Yes Confirmation of Payer with patient/family: Yes Payer Name: MEDICARE AND [employer] MEDICAID [place]: No Confirmation of Primary Care Physician: Confirmed PCP Name: DR. QUICK Seen in last 2 years?: Yes Primary Caregiver: Other (Comment) If assistance needed, confirmed caregiver ready, willing and able to care for patient at discharge: Yes Confirmed with: STAFF AT [facility] Living Arrangements Current Residence: ([facility]) Number of Floors 1 Number of Entry Steps: (LEVEL ENTRY) Bed/Bath Levels: Both first floor Facility: Long-Term/[facility] Care Facility Name: [facility] Plan to Return: Yes Lives with: Other (Comment) (ECF) Support Systems: Children, Comments (Other) (ECF STAFF) Activities of Daily Living Ambulation: Total Care Bathing/Dressing: Total Care Elimination/Continence/Toileting : Total Care Feeding: asst .set up Who Assists with Activities of Daily Living: ECF STAFF Instrumental Activities of Daily Living Prescription Coverage: Yes Pharmacy Used: [facility] STAFF Medication Management: Medication dispenser Who assists with medication securing and setup?: [facility] Transportation/Shopping: Assistance Provider Transportation/Shopping Assistance Provider Name: PAYOR PROVIDED TRANSPORT Transportation Mode: Payer provided transport service Needs Assistance with Transportation at Discharge: Yes Meal Preparation: Assistance Provider Meal Prep Assistance Provider Name: [facility] Laundry/Cleaning: Assistance Provider Laundry/Cleaning Assistance Provider Name: F Finances/Bill Paying: Assistance Provider Finances/Bill Payer Assistance Provider Name: DAUGHTER Communication: Independent, Emergency Call System Types of Care Services/Equipment Utilized Care Services: Dialysis Type: NA Durable Medical Equipment: Mohamud Lift, Hospital Bed, oxygen, Patient's Goal/Discharge Plan Patient expects to be discharged to: RETURN TO [facility] Discharge Planning Actions: Continue to follow Patient's Choice Rights and [employer] and Collaborative Relationships Disclosed as Indicated for Post-Acute Care: NA Interdisciplinary Team Engagement: Social Work Referral for: Additional Information: Inpatient status from [facility] with altered mental status. Recent hospitalization for UTI and is receiving iv invanz at longterm via picc line. ID consulted. Repeat blood culture in am, bs ac and hs with ss coverage, daily labs, us of right upper ext negative for DVT. Did call and speak with nurse [facility] at [facility] patient is mohamud lift at facility, is able to feed herself, takes pills in applesauce, is diabetic and ss coverage. She believes patient requires oxygen at the facility. Patient is prison at facility and Jenna believes has been there for about a year. Tentative discharge plan is to return to facility when medically stable. Did speak with patient's daughter Alexandro and she is agreeable with patient returning to [facility] when medically stable. . Vanessa Vu RN Tasked SURVEILLANCE MONITOR to place referral in careport to return to [facility] under ICF level of care. . documented in this encounter [facility] 03-09-2024 Note Formatting of this n ote might be different from the original. Next Site of Care Admission Date: 03/05/2024 07:08 PM Patient Name: KIMBERLY PATEL Location: [address]/[facility] [id number] Date of : 1955 Placement Information Referral Type:Long-Term ICF - Return Referral ID:[id number] Provider Name:Katia Lopez [employer] Address 1:[address] Address 2: City:[place] Selection Factors:Returning to Facility State:[place] T [place] 03-09-2024 Note Formatting of this n ote might be different from the original. Next Site of Care Admission Date: 03/05/2024 07:08 PM Patient Name: KIMBERLY PATEL Location: [address] [place]/[facility] [id number] A Date of : 1955 Placement Information Referral Type:Long-Term ICF - Return Referral ID:[id number] Provider Name:[facility] Address 1:[address] Address 2: City:[place] Selection Factors:Returning to Facility State:[place] [facility] 03-09-2024 Note Formatting of this n ote might be different from the original. Care Coordination Daily Note/Update Clinical Update: active discharge orders Discharge Plan: return to [facility] Discharge Barriers: none Chart reviewed. Received message from attending stating patient is cleared for discharge. Discharge orders in. ANN and med rec complete. Submitted ride request via [employer] - awaiting acceptance and confirmation. Received notification that cot transportation has been setup for 1000 with [employer]. Phoned patient's daughter, Alexandro Cote, at [phone]. Received VM identifying full name. LM to notify of patient discharge and transport time. Notified RN. RN will notify patient. Messaged facility via OfficialVirtualDJ to notify. Sent AVS and MAR to facility via [employer]. TCC will remain available for any additional discharge needs. T [facility] 03-09-2024 Note Formatting of this n ote might be different from the original. Care Coordination Daily Note/Update Clinical Update: active discharge orders Discharge Plan: return to [facility] Discharge Barriers: none Chart reviewed. Received message from attending stating patient is cleared for discharge. Discharge orders in. ANN and med rec complete. Submitted ride request via [employer] - awaiting acceptance and confirmation. Received notification that cot transportation has been setup for 1000 with [employer]. Phoned patient's daughter, Alexandro Cote, at [phone]. Received VM identifying full name. LM to notify of patient discharge and transport time. Notified RN. RN will notify patient. Messaged facility via OfficialVirtualDJ to notify. Sent AVS and MAR to facility via OfficialVirtualDJ. TCC will remain available for any additional discharge needs. [facility] 03-09-2024 Note Hospitalist Discharg e Summary Kimberly Patel : 1955 Admit date: 03/05/2024 Discharge date: 03/09/2024 Admitting Physician: Eboni Fletcher MD Primary Care Physician: Lcuy Quick Visit Status: admission Code Status: Full [...] condition to home. LABS: CBC: Recent Labs 05/10/22603/08/2413103/09/24604 WBC 8.1 6.9 6.3 RBC 2.90* 2.91* 2.69* HGB 8.4* 8.3* 7.9* HCT 26.5* 27.5* 25.7* MCV 91.4 94.5 95.5 RDW 16.8* 17.2* 17.4* PLT 312 298 256 BMP: Recent Labs 03/07/2422603/08/2413103/09/24604 NA 137 138 138 K 4.0 4.2 4.6 CL 106 108* 108* CO2 27 29 26 BUN 21* 23* 26* CREATININE 1.12* 1.24* 1.22* GLUCOSE 75 75 147* CALCIUM 8.7 8.4 7.8* ANIONGAP 5 1* 5 LIVER PROFILE: Recent Labs 03/08/2413103/09/24604 AST 24 17 ALT 21 18 BILITOT 0.3 0.3 ALKPHOS 86 82 PROT 5.2* 4.8* PT/INR: No results for input(s): "PROTIME", "INR" in the last 72 hours. CARDIAC ENZYMES: No results for input(s): "TROPONINI" in the last 72 hours. Procalcitonin: No results found for: "PROCAL" COVID-19 PCR: No results for input(s): "COVID19" in the last 72 hours. Vitals: BP [...] Commonly known as: Dupixent ergocalciferol 1.25 MG (58412 UT) capsule Commonly known as: Vitamin D-2 [...] tablet Generic drug (more content not included)... [facility] 03-09-2024 Hospital course Narrative Images from [...] 5.2* 4.8* PT/INR: No results for input(s): "PROTIME", "INR" in the last 72 hours. CARDIAC ENZYMES: No results for input(s): "TROPONINI" in the last 72 hours. Procalcitonin: No results found for: "PROCAL" COVID-19 PCR: No results for input(s): "COVID19" in the last 72 hours. Vitals: BP [...] Commonly known as: Dupixent ergocalciferol 1.25 MG (45074 UT) capsule Commonly known as: Vitamin D-2 [...] Complexity: follow up within 7-14 calendar days (24279) [x] Severe Complexity: follow up within 7 calendar days (40343) Follow up Testing, Pending results or Referrals [...] DO Division of Hospitalist Medicine Inpatient Medical Services/[facility] [place] [place] 03/09/2024, 7:47 AM Total time Spent on Discharge: 31 minutes documented in this encounter [facility] 03-08-[address] [facility] - Infectious Diseases Attending Progress Note Subjective: States that she is feeling at baseline DRIER function I held a 10 min conversation [...] flank pain or vaginitis, thrush or rashes. [place]: f/up for confusion/hallucinations, malaise on Day 11 [...] repeated while Ertapenem held for concern for DRIER SE of Ertapenem. And UA contaminated with [...] normal. Judgment: Judgment normal. Labs: Recent Labs 03/05/24201103/07/2422603/08/24131 NA 137 137 138 [...] 4.7 3.5 Micro: No results for input(s): "COVID19" in the last 72 hours. 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 [facility] 03-08-2024 History of Presen t illness Narrative Images from the original note were not included. [facility] - Infectious Diseases Attending Progress Note Subjective: States that she is feeling at baseline DRIER function I held a 10 min conversation [...] flank pain or vaginitis, thrush or rashes. [place]: f/up for confusion/hallucinations, malaise on Day 11 Ertapenem. Now off of therapy since 03/05/24. She is a was ECF x 2 yrs since she can't walk, and was recently on IV TX for sepsis from ESBL E. Coli pyelonephritis bacteremia and hospitalized 02/20-02/28/24, then sent to [facility] on Ertapenem for anticipated 14 d. Multiple serious medical problems including COPD on 4 L NC chronically, and DM2 (Hb A1c 7/obesity related, CKD 3a, chronic anemia (hg baseline 9, now 8.3)) Urine culture repeated while Ertapenem held for concern for DRIER SE of Ertapenem. And UA contaminated with Epi's with growth of 50-90 K Enterococcus and 10-50 K Jose Vitals: Patient Vitals for the past 24 hrs: BP Temp Temp src Pulse Resp SpO2 03/08/24 0844 108/75 36.4 C (97.6 F) Temporal 96 16 94 % 03/07/24 1924 141/71 36.5 C (97.7 F) Temporal 88 [...] 24 ALT 22 -- 21 Recent Labs 03/05/24202903/07/2422603/08/24 013 WBC 8.7 8.1 6.9 HGB 9.3* 8.4* 8.3* HCT 29.7* 26.5* 27.5* PLT 342 312 298 LYMPHOPCT 20.0 26.3 32.6 MONOPCT 8.1 11.0 11.7 BASOPCT 0.7 0.6 0.4 NEUTROABS 5.7 4.7 3.5 Micro: No results for input(s): "COVID19" in the last 72 hours. 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 Hospitalist Progress Note 03/08/2024 [phone]: Please page me ([phone]) for patient care issues. [phone]: Please page [facility] Hospitalist for any issues. Subjective: Admit Date: [...] Atherosclerosis Bullous pemphigoid CHF (congestive heart failure) ([facility]) Chronic kidney disease (CKD), stage III (moderate) ([facility]) Cognitive deficits COPD (chronic obstructive pulmonary disease) (HCC) Depression Diabetes mellitus (HCC) GERD (gastroesophageal reflux disease) Hyperlipidemia Hypertension Morbid obesity due to excess calories ([facility]) LABS: CBC: Recent Labs 03/05/24 2030 03/07/24 0227 03/08/24 0132 WBC 8.7 8.1 6.9 RBC 3.19* 2.90* [...] 7 5 1* LIVER PROFILE: Recent Labs 03/05/24201103/08/24 013 AST 21 24 ALT 22 21 BILITOT 0.4 0.3 ALKPHOS 95 86 PROT 5.7* 5.2* PT/INR: No results for input(s): "PROTIME", "INR" in the last 72 hours. CARDIAC ENZYMES: No results for input(s): "TROPONINI" in the last 72 hours. Procalcitonin: No results found for: "PROCAL" COVID-19 PCR: No results for input(s): "COVID19" in the last 72 hours. Objective: Vitals: [...] - 03/09 vs 03/10? - Location - [facility] - Pending the following - stable mentation, abx recs from ID, consultants clearance. Toxic drug monitoring/narrow therapeutic index drug monitoring : # Drug name : # Route administered : # Method of monitoring : Extended Emergency Contact Information Primary Emergency Contact: Alexandro Cote Mobile Relation: Daughter Preferred language: Nigerian Food Concession Manager needed? No Carmen Talamantes DO Division of Hospitalist Medicine Inpatient Medical Services/[facility] [place] [place] PAGER: Epic chat Images from the original note were not included. [facility] - Infectious Diseases Attending Progress [...] was discontinued. She was recently admitted at [facility] from 02/20- 02/28/24 due to severe sepsis [...] 5.7 4.7 Micro: No results for input(s): "COVID19" in the last 72 hours. 03/07/2024 0547 03/07/2024 08 Blood culture Site #2 - Assess for effectiveness of treatment [[id number]] Blood, Venous Preliminary result Component Value Blood Culture Blood culture incubation started P 03/07/2024 0520 03/07/2024 0801 Blood culture Site #1 - Assess for effectiveness of treatment [[id number]] Blood, Venous Preliminary result Component Value Blood Culture Blood culture incubation started P 03/05/2024204303/07/2024 0932 Urine culture [[id number]] (Abnormal) Urine, Clean Catch Preliminary result Component Value Urine Culture 50,000-90,000 CFU/mL Enterococcus raffinosus Abnormal P Susceptibility testing performed only upon request for cultures with multiple types of microorganisms below 100,000 CFU/ml. 10,000-50,000 CFU/mL Jose albicans Abnormal P 02/25/2024 1536 02/27/2024 1045 Urine culture [[id number]] (Abnormal) Urine, Clean Catch Final result Component Value Urine Culture Normal urogenital krys present 10,000-50,000 CFU/mL Jose albicans Abnormal 02/23/2024 0439 02/28/2024 1101 Blood culture Site #2 - Assess for effectiveness of treatment [[id number]] Blood, Venous Final result Component Value Blood Culture No growth at 5 days 02/23/2024 0438 02/28/2024 1101 Blood culture Site #1 - Assess for effectiveness of treatment [[id number]] Blood, Venous Final result Component Value Blood Culture No growth at 5 days Lines: Rt arm PICC Radiography/Echo/Other: CT head wo IV contrast [[id number]] Collected: 03/06/241623 Order Status: Completed Updated: 03/06/241628 Narrative: Patient Name: KIMBERLY PATEL : 1955 [facility]#: [id number] Exam Date/Time: 03/06/2024 16:10 Procedure: CT HEAD [...] 4:28 PM EDT XR chest 1 view [[id number]] Collected: 03/05/242023 Order Status: Completed Updated: 03/05/242025 Narrative: Patient Name: KIMBERLY PATEL : 1955 [facility]#: [id number] Exam Date/Time: 03/05/2024 20:11 Procedure: XR CHEST [...] were not included. Hospitalist Progress Note 03/07/2024 [phone]: Please page me ([phone]) for patient care issues. [phone]: Please page [facility] Hospitalist for any issues. Subjective: Admit Date: [...] Atherosclerosis Bullous pemphigoid CHF (congestive heart failure) ([facility]) Chronic kidney disease (CKD), stage III (moderate) ([facility]) Cognitive deficits COPD (chronic obstructive pulmonary disease) (HCC) Depression Diabetes mellitus (HCC) GERD (gastroesophageal reflux disease) Hyperlipidemia Hypertension Morbid obesity due to excess calories ([facility]) LABS: CBC: Recent Labs 03/05/24202903/07/24226 WBC 8.7 [...] PROT 5.7* PT/INR: No results for input(s): "PROTIME", "INR" in the last 72 hours. CARDIAC ENZYMES: No results for input(s): "TROPONINI" in the last 72 hours. Procalcitonin: No results found for: "PROCAL" COVID-19 PCR: No results for input(s): "COVID19" in the last 72 hours. Objective: Vitals: [...] patient was reported to be hallucinating at [facility] where she was getting IV abx [...] Alexandro Cote Mobile Relation: Daughter Preferred language: Nigerian Food Concession Manager needed? No Carmen Talamantes DO [facility] [place] [place] PAGER: Epic chat Images from the original note were not included. OCCUPATIONAL THERAPY [facility] Name/MRN: Kimberly Patel ([id number]) Date: 03/07/2024 Chart review completed. Per previous documentation and confirmation from CM documentation, this patient is a retirement resident at a facility and does not require auth to return. This patient is a total assist at baseline for ADLs, mohamud lift for for transfers and non-ambulatory. Pt is at her functional baseline and has no skilled OT needs. Will complete current OT order at this time. Nilsa Vieira OT Images from the original note were not included. PHYSICAL THERAPY [facility] Name/MRN: Kimberly Paetl ([id number]) Date: 03/07/2024 Chart review completed. 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 This patient is a total assist at baseline for ADLs, mohamud lift for for transfers and non-ambulatory. Pt is at her functional baseline and has no skilled PT needs. Will complete current PT order at this time. Jaky Hayes PT Images from the original note were not included. Hospitalist Progress Note 03/06/2024 [phone]: Please page me ([phone]) for patient care issues. [phone]: Please page [facility] Hospitalist for any issues. Subjective: Admit Date: 03/05/2024 PCP: Lucy Quick Room#: [id number] A Interval History: No overnight issues. Denies [...] History: Diagnosis Date CHF (congestive heart failure) ([facility] COPD (chronic obstructive pulmonary disease) ([facility]) Diabetes mellitus ([facility]) LABS: CBC: Recent Labs 03/05/242029 WBC 8.7 RBC 3.19* HGB 9.3* HCT 29.7* MCV 93.1 RDW 16.5* PLT 342 BMP: Recent Labs 03/05/242011 NA 137 K 4.7 CL 104 CO2 25 BUN 24* CREATININE 1.23* GLUCOSE 144* CALCIUM 9.1 ANIONGAP 7 LIVER PROFILE: Recent Labs 03/05/242011 AST 21 ALT 22 BILITOT 0.4 ALKPHOS 95 PROT 5.7* PT/INR: No results for input(s): "PROTIME", "INR" in the last 72 hours. CARDIAC ENZYMES: No results for input(s): "TROPONINI" in the last 72 hours. Procalcitonin: No results found for: "PROCAL" COVID-19 PCR: No results for input(s): "COVID19" in the last 72 hours. Objective: Vitals: [...] Alexandro Cote Mobile Relation: Daughter Preferred language: Nigerian Food Concession Manager needed? No Carmen Talamantes DO [facility] [place] [place] PAGER: Epic chat documented in this encounter [facility] 03-08-2024 Note Hospitalist Progress Note 03/08/2024 [phone]: Please page me ([phone]) for patient care issues. [phone]: Please page [facility] Hospitalist for any issues. Subjective: Admit Date: 03/05/2024 PCP: Lucy Quick Room#: [id number] A Interval History: No overnight issues. Denies [...] 5.7* 5.2* PT/INR: No results for input(s): "PROTIME", "INR" in the last 72 hours. CARDIAC ENZYMES: No results for input(s): "TROPONINI" in the last 72 hours. Procalcitonin: No results found for: "PROCAL" COVID-19 PCR: No results for input(s): "COVID19" in the last 72 hours. Objective: Vitals: [...] on Anticoagulation Anticipated (more content not included)... [facility] 03-08-2024 Note Formatting of this n ote might be different from the original. Care Coordination Daily Note/Update Clinical Update: blood cultures from 03/07 resulted as normal this AM so, per 03/07 ID note, no further antimicrobial treatment is needed. No leukocytosis per this morning's labs. Discharge Plan: return to [facility] Discharge Barriers: clinical stability Chart reviewed. Messaged attending to check on clinical stability for discharge. Awaiting response back. Received response back stating, further discussion with ID yesterday they were recommending negative cultures x72 hours, so patient will not be discharged today. if labs are stable tomorrow, plan for discharge tomorrow." TCC will continue to follow. [facility] 03-08-2024 Note Formatting of this n ote might be different from the original. Care Coordination Daily Note/Update Clinical Update: blood cultures from 03/07 resulted as normal this AM so, per 03/07 ID note, no further antimicrobial treatment is needed. No leukocytosis per this morning's labs. Discharge Plan: return to [facility] Discharge Barriers: clinical stability Chart reviewed. Messaged attending to check on clinical stability for discharge. Awaiting response back. Received response back stating, further discussion with ID yesterday they were recommending negative cultures x72 hours, so patient will not be discharged today. if labs are stable tomorrow, plan for discharge tomorrow." TCC will continue to follow. [facility] 03-07-[address] [facility] - Infectious Diseases Attending Progress Note Subjective: Follow up for confusion while on ertapenem (for 12 days) for ESBL E coli bacteremia. She was alert, laying on bed, thought that she was still at the nursing facility, followed commands appropriately, wearing 4L O2 (baseline), appeared non-toxic. She was admitted on 03/05/24 from an F due to increased confusion, hallucinations and not [...] was discontinued. She was recently admitted at [facility] from 02/20- 02/28/24 due to severe sepsis [...] 5.7 4.7 Micro: No results for input(s): "COVID19" in the last 72 hours. 03/07/2024 0547 03/07/2024 08 Blood culture Site #2 - Assess for effectiveness of treatment [[id number]] Blood, Venous Preliminary result Component Value Blood Culture Blood culture incubation started P 03/07/2024 0520 03/07/2024 0801 Blood culture Site #1 - Assess for effectiveness of treatment [[id number]] Blood, Venous Preliminary result Component Value Blood Culture Blood culture incubation started P 03/05/2024 2044 03/07/2024 0932 Urine culture [[id number]] (Abnormal) Urine, Clean Catch Preliminary result Component Value Urine Culture 50,000-90,000 CFU/mL Enterococcus raffinosus Abnormal P Susceptibility testing performed only upon request for cultures with multiple types of microorganisms below 100,000 CFU/ml. 10,000-50,000 CFU/mL Jose albicans Abnormal P 02/25/2024 1536 02/27/2024 1045 Urine culture [[id number]] (Abnormal) Urine, Clean Catch Final result Component Value Urine Culture Normal urogenital krys present 10,000-50,000 CFU/mL Jose albicans Abnormal 02/23/2024 0439 02/28/2024 1101 Blood culture Site #2 - Assess for effectiveness of treatment [[id number]] Blood, Venous Final result Component Value Blood Culture No growth at 5 days 02/23/2024 0438 02/28/2024 1101 Blood culture Site #1 - Assess for effectiveness of treatment [[id number]] Blood, Venous Final result Component Value Blood Culture No growth at 5 days Lines: Rt arm PICC Radiography/Echo/Other: CT head wo IV contrast [[id number]] Collected: 03/06/241623 Order Status: Completed Updated: 03/06/241628 Narrative: Patient Name: KIMEBRLY PATEL : 1955 Exam Date/Time: 03/06/2024 16:10 Procedure: CT HEAD WO IV CONTRAST Ordering Provider: TALAMANTES JONATHAN Reason For Exam: Mental status change, unknown cause CT HEAD WITHOUT CONTRAST CLINICAL HISTORY: Mental status change, unknown cause COMPARISON: 02/21/2024 TECHNIQUE: Helical CT of the brain without contrast. Dose reducti (more content not included)... [facility] 03-07-2024 Note Formatting of this n ote might be different from the original. Per Dr. Talamantes's note, anticipated dc is for 03/08/24. Pt transport is set in WILL CALL with [employer] for 03/08/24. [facility] 03-07-2024 Note Formatting of this n ote might be different from the original. Per Dr. Talamantes's note, anticipated dc is for 03/08/24. Pt transport is set in WILL CALL with [employer] for 03/08/24. T [facility] 03-07-2024 Note Hospitalist Progress Note 03/07/2024 [phone]: Please page me ([phone]) for patient care issues. [phone]: Please page [facility] Hospitalist for any issues. Subjective: Admit Date: 03/05/2024 PCP: Lucy Quick Room#: B4450/[id number] A Interval History: No overnight issues. Denies chest pain, sob, abdominal pain, nausea, vomiting, diarrhea, constipation, fevers, or chills. Patient without acute issues. Nursing reports intermittent hallucinations. Adult diet Regular 24HR INTAKE/OUTPUT: No intake or output data in the 24 hours ending 03/07/24 1036 Past Medical History: Past Medical History: Diagnosis Date Asthma Atherosclerosis Bullous pemphigoid CHF (congestive heart failure) ([facility]) Chronic kidney disease (CKD), stage III (moderate) ([facility]) Cognitive deficits COPD (chronic obstructive pulmonary disease) (HCC) Depression Diabetes mellitus (HCC) GERD (gastroesophageal reflux disease) Hyperlipidemia Hypertension Morbid obesity due to excess calories ([facility]) LABS: CBC: Recent Labs 03/05/24202903/07/24226 WBC 8.7 [...] PROT 5.7* PT/INR: No results for input(s): "PROTIME", "INR" in the last 72 hours. CARDIAC ENZYMES: No results for input(s): "TROPONINI" in the last 72 hours. Procalcitonin: No results found for: "PROCAL" COVID-19 PCR: No results for input(s): "COVID19" in the last 72 hours. Objective: Vitals: [...] patient was reported to be hallucinating at [facility] where she was getting IV abx [...] Emergency Contact In (more content not included)... [facility] 03-07-2024 Note Formatting of this n ote is different from the original. Images from the original note were not included. Care Management Progress Note Repeat blood cultures this am. Urine culture in process. Monitor off iv antibiotics. [facility]. Patient is prison resident there. . Discharge Milestones and Delays Expected Date/Time: 03/09/[address] discharge order Complete med reconciliation Case mgmt discharge readiness Clinical Stability Diagnsotic Workup Expected Discharge History Expected Date/Time Set By Reviewed At 03/09/2024 Eboni Fletcher MD 03/06/2024 1:18 PM 03/08/2024 Eboni Fletcher MD 03/06/2024 7:05 AM 03/06/2024 Janie Cortez MD 03/05/2024 11:00 PM Length of Stay (Days): 1 GMLOS: 3.4 [facility] 03-07-2024 Note Formatting of this n ote is different from the original. Images from the original note were not included. Care Management Progress Note Repeat blood cultures this am. Urine culture in process. Monitor off iv antibiotics. Discharge plan [facility]. Patient is prison resident there. . Discharge Milestones and Delays Expected Date/Time: 03/09/[address] discharge order Complete med reconciliation Case mgmt discharge readiness Clinical Stability Diagnsotic Workup Expected Discharge History Expected Date/Time Set By Reviewed At 03/09/2024 Eboni Fletcher MD 03/06/2024 1:18 PM 03/08/2024 Eboni Fletcher MD 03/06/2024 7:05 AM 03/06/2024 Janie Cortez MD 03/05/2024 11:00 PM Length of Stay (Days): 1 GMLOS: 3.4 [facility] 03-07-2024 Note Care Management Prog ress Note Repeat blood cultures this am. Urine culture in process. Monitor off iv antibiotics. Discharge plan [facility]. Patient is prison resident there. . Discharge Milestones and Delays Expected Date/Time: 03/09/[address] discharge order Complete med reconciliation Case mgmt discharge readiness Clinical Stability Diagnsotic Workup Expected Discharge History Expected Date/Time Set By Reviewed At 03/09/2024 Eboni Fletcher MD 03/06/2024 1:18 PM 03/08/2024 Eboni Fletcher MD 03/06/2024 7:05 AM 03/06/2024 Janie Cortez MD 03/05/2024 11:00 PM Length of Stay (Days): 1 GMLOS: 3.4 [facility] 03-06-2024 Hospital Discharg e instructions Erica [...] Alexandro Cote Mobile Relation: Daughter Preferred language: Nigerian Food Concession Manager needed? No Past Surgical History: Past Surgical History: Procedure Laterality Date CHOLECYSTECTOMY COLONOSCOPY throat biopsy Immunization History: There is no immunization history on file for this patient. Active Problems: Medical Problems Problem List * (Principal) Encephalopathy acute Sphenoid sinusitis, unspecified chronicity Bullous pemphigoid Acute on chronic diastolic congestive heart failure (HCC) Bipolar disorder, most recent episode depressed (CMS/HCC) ([facility]) UTI (urinary tract infection) Physical debility (Chronic) Other hyperlipidemia CAD (coronary artery disease) Primary hypertension Neuropathy Bacteremia Acute kidney injury superimposed on CKD ([facility]) ([facility]) Type 2 diabetes mellitus with diabetic polyneuropathy, with long-term current use of insulin ([facility]) Isolation/Infection: Contact ESBL Nurse Assessment: Last Vital [...] assistance Toileting Total assistance Feeding Minimal assistance Watch Supervisor Minimal assistance Med Delivery yes Wound Care [...] Score: @READMISSIONRISKDETAILS@ Discharging to Facility/ Agency Name: [facility] Address:[address] [facility] [address] Dialysis Facility (if applicable) Name: Address: Dialysis Schedule: Phone: Fax: Sales Clerk Supervisor/Fire Investigation Lieutenant signature: ICIAN SECTION Prognosis: excellent Condition at [...] H&P PHYSICIAN SIGNATURE: documented in this encounter [facility] 03-06-2024 Note Formatting of this n ote might be different from the original. Referral placed to [facility] for return via [facility] per TCC request. Await review and response regarding ability to accept. TCC notified. [facility] 03-06-2024 Note Formatting of this n ote might be different from the original. Referral placed to [facility] for return via [facility] per TCC request. Await review and response regarding ability to accept. TCC notified. [facility] 03-06-2024 Note Referral placed to [facility] for return via Careport per TCC request. Await review and response regarding ability to accept. TCC notified. [facility] 03-06-2024 Consult note Associated Order (s): IP CONSULT TO INFECTIOUS DISEASES Images from the original note were not included. [facility] - Infectious Diseases Attending Consult [...] appeared non-toxic. She was recently admitted at [facility] from 02/20- 02/28/24 due to severe sepsis [...] History: Diagnosis Date CHF (congestive heart failure) ([facility]/HCC) COPD (chronic obstructive pulmonary disease) ([facility]) Diabetes mellitus ([facility]) Past Surgical History: Past Surgical History: Procedure [...] injection 1 mg 1 mg IntraMUSCular PRN Ebnoi Fletcher MD glucose oral gel 15 g [...] NEUTROABS 5.7 Micro: No results for input(s): "COVID19" in the last 72 hours. 03/05/2024 2044 03/05/2024 2105 Urine culture [[id number]] Urine, Clean Catch In process Component Value No component results 02/25/2024 1536 02/27/2024 1045 Urine culture [[id number]] (Abnormal) Urine, Clean Catch Final result Component Value Urine Culture Normal urogenital krys present 10,000-50,000 CFU/mL Jose albicans Abnormal 02/23/2024 0439 02/28/2024 1101 Blood culture Site #2 - Assess for effectiveness of treatment [[id number]] Blood, Venous Final result Component Value Blood Culture No growth at 5 days 02/23/2024 0438 02/28/2024 1101 Blood culture Site #1 - Assess for effectiveness of treatment [[id number]] Blood, Venous Final result Component Value Blood Culture No growth at 5 days 02/21/2024 1759 02/25/2024 0824 Urine culture [[id number]] (Abnormal) Urine, Clean Catch Final result Component Value Urine Culture Normal urogenital krys present >100,000 CFU/mL Escherichia coli Abnormal This phenotype is suggestive of an ESBL-producing organism. Treatment with beta-lactam antibiotics other than carbapenems may not be effective. >100,000 CFU/mL Enterococcus faecalis Abnormal 02/21/2024 1135 02/21/2024 1628 COVID-19, Flu A/B, and RSV Combo [[id number]] Swab from Nasopharynx Final result Component Value SARS-CoV-2 Not Detected Respiratory Syncytial Virus Not Detected Influenza A Not Detected Influenza B Not Detected 02/21/2024 1124 02/24/2024 0948 Blood culture Site #1 - Suspected Infection [[id number]] (Abnormal) Blood, Venous Final result Component Value Blood Culture Escherichia coli Panic This phenotype is suggestive of an ESBL-producing organism. Treatment with beta-lactam antibiotics other than carbapenems may not be effective. This is an edited result. Previous organism was Gram-negative bacilli on 02/22/2024 at 0622 EDT. 02/21/2024 1124 02/22/2024 0622 Blood Culture Identification - Anaerobic [[id number]] (Abnormal) Blood, Venous Final result Component Value Escherichia coli Detected Abnormal CTX-M (ESBL gene) Detected Abnormal Lines: Rt arm PICC Radiography/Echo/Other: Procedure Component Value Units Date/Time XR chest 1 view [[id number]] Collected: 03/05/242023 Order Status: Completed Updated: 03/05/242025 [...] time stamp for accounting for open encounter. [facility] 03-06-2024 Consult note Associated Order (s): IP CONSULT TO INFECTIOUS DISEASES Images from the original note were not included. [facility] - Infectious Diseases Attending Consult [...] appeared non-toxic. She was recently admitted at [facility] from 02/20- 02/28/24 due to severe sepsis [...] History: Diagnosis Date CHF (congestive heart failure) ([facility]) COPD (chronic obstructive pulmonary disease) ([facility]) Diabetes mellitus ([facility]) Past Surgical History: Past Surgical History: Procedure [...] Units SubCUTAneous TID WC Eboni Fletcher MD 1 Units at 03/06/24 1155 And Insulin Lispro (Humalog) injection 0-6 Units 0-6 Units SubCUTAneous Nightly Eboni Fletcher MD Insulin Lispro (Humalog) injection 0-6 Units 0-6 Units SubCUTAneous TID WC Eboni Fletcher MD And Insulin Lispro (Humalog) injection 0-6 Units 0-6 Units SubCUTAneous Nightly Eboni Fletcher MD isosorbide mononitrate ER (Imdur) 24 hr tablet 30 mg 30 mg Oral Daily bEoni Fletcher MD 30 mg at 03/06/24 1008 [...] NEUTROABS 5.7 Micro: No results for input(s): "COVID19" in the last 72 hours. 03/05/2024204303/05/2024 2105 Urine culture [[id number]] Urine, Clean Catch In process Component Value No component results 02/25/2024 1536 02/27/2024 1045 Urine culture [[id number]] (Abnormal) Urine, Clean Catch Final result Component Value Urine Culture Normal urogenital krys present 10,000-50,000 CFU/mL Jose albicans Abnormal 02/23/2024 0439 02/28/2024 1101 Blood culture Site #2 - Assess for effectiveness of treatment [[id number]] Blood, Venous Final result Component Value Blood Culture No growth at 5 days 02/23/2024 0438 02/28/2024 1101 Blood culture Site #1 - Assess for effectiveness of treatment [[id number]] Blood, Venous Final result Component Value Blood Culture No growth at 5 days 02/21/2024 1759 02/25/2024 0824 Urine culture [[id number]] (Abnormal) Urine, Clean Catch Final result Component Value Urine Culture Normal urogenital krys present >100,000 CFU/mL Escherichia coli Abnormal This phenotype is suggestive of an ESBL-producing organism. Treatment with beta-lactam antibiotics other than carbapenems may not be effective. >100,000 CFU/mL Enterococcus faecalis Abnormal 02/21/2024 1135 02/21/2024 1628 COVID-19, Flu A/B, and RSV Combo [[id number]] Swab from Nasopharynx Final result Component Value SARS-CoV-2 Not Detected Respiratory Syncytial Virus Not Detected Influenza A Not Detected Influenza B Not Detected 02/21/2024 1124 02/24/2024 0948 Blood culture Site #1 - Suspected Infection [[id number]] (Abnormal) Blood, Venous Final result Component Value Blood Culture Escherichia coli Panic This phenotype is suggestive of an ESBL-producing organism. Treatment with beta-lactam antibiotics other than carbapenems may not be effective. This is an edited result. Previous organism was Gram-negative bacilli on 02/22/2024 at 0622 EDT. 02/21/2024 1124 02/22/2024 0622 Blood Culture Identification - Anaerobic [[id number]] (Abnormal) Blood, Venous Final result Component Value Escherichia coli Detected Abnormal CTX-M (ESBL gene) Detected Abnormal Lines: Rt arm PICC Radiography/Echo/Other: Procedure Component Value Units Date/Time XR chest 1 view [[id number]] Collected: 03/05/242023 Order Status: Completed Updated: 03/05/242025 [...] for open encounter. documented in this encounter [facility] 03-06-2024 Note Formatting of this n ote might be different from the original. Care Managment Initial Assessment Date: 03/06/2024 Patient Name: Kimberly Patel : 1955 Patient Information Source of Information: (recent assessment 02/22/24) Name/Contact Information: ALEXANDRO COTE [phone] DAUGHTER Cognition/Language: Confused at baseline Permission given to speak with patient passenger service representative/caregiver as indicated: Yes Confirmation of Payer with patient/family: Yes Payer Name: MEDICARE AND [facility] MEDICAID [place]: No Confirmation of Primary Care Physician: Confirmed PCP Name: DR. QUICK Seen in last 2 years?: Yes Primary Caregiver: Other (Comment) If assistance needed, confirmed caregiver ready, willing and able to care for patient at discharge: Yes Confirmed with: STAFF AT [facility] Living Arrangements Current Residence: ([facility]) Number of Floors 1 Number of Entry Steps: (LEVEL ENTRY) Bed/Bath Levels: Both first floor Facility: Long-Term/[facility]idental Care Facility Name: [facility] Plan to Return: Yes Lives with: Other (Comment) (ECF) Support Systems: Children, Comments (Other) (ECF STAFF) Activities of Daily Living Ambulation: Total Care Bathing/Dressing: Total Care Elimination/Continence/Toileting : Total Care Feeding: asst .set up Who Assists with Activities of Daily Living: ECF STAFF Instrumental Activities of Daily Living Prescription Coverage: Yes Pharmacy Used: [facility] STAFF Medication Management: Medication dispenser Who assists with medication securing and setup?: [facility] Transportation/Shopping: Assistance Provider Transportation/Shopping Assistance Provider Name: [employer]OR PROVIDED TRANSPORT Transportation Mode: Payer provided transport service Needs Assistance with Transportation at Discharge: Yes Meal Preparation: Assistance Provider Meal Prep Assistance Provider Name: EMILEEJoelle Laundry/Cleaning: Assistance Provider Laundry/Cleaning Assistance Provider Name: EMILEEJoelle Finances/Bill Paying: Assistance Provider Finances/Bill Payer Assistance Provider Name: DAUGHTER Communication: Independent, Emergency Call System Types of Care Services/Equipment Utilized Care Services: Dialysis Type: NA Durable Medical Equipment: Mohamud Lift, Hospital Bed, oxygen, Patient's Goal/Discharge Plan Patient expects to be discharged to: RETURN TO [facility] Discharge Planning Actions: Continue to follow Patient's Choice Rights and [employer] and Collaborative Relationships Disclosed as Indicated for Post-Acute Care: NA Interdisciplinary Team Engagement: Social Work Referral for: Additional Information: Inpatient status from [facility] with altered mental status. Recent hospitalization for UTI and is receiving iv invanz at longterm via picc line. ID consulted. Repeat blood culture in am, bs ac and hs with ss coverage, daily labs, us of right upper ext negative for DVT. Anny call and speak with nurse Jenna at [facility] patient is mohamud lift at facility, is able to feed herself, takes pills in applesauce, is diabetic and ss coverage. She believes patient requires oxygen at the facility. Patient is prison at facility and Jenna believes has been there for about a year. Tentative discharge plan is to return to facility when medically stable. Did speak with patient's daughter Alexandro and she is agreeable with patient returning to [facility] when medically stable. . Vanessa Vu RN [facility] 03-06-2024 Note Formatting of this n ote might be different from the original. Care Managment Initial Assessment Date: 03/06/2024 Patient Name: Kimberly Patel : 1955 Patient Information Source of Information: (recent assessment 02/22/24) Name/Contact Information: ALEXANDRO COTE [phone] DAUGHTER Cognition/Language: Confused at baseline Permission given to speak with patient passenger service representative/caregiver as indicated: Yes Confirmation of Payer with patient/family: Yes Payer Name: MEDICARE AND [facility] MEDICAID [place]: No Confirmation of Primary Care Physician: Confirmed PCP Name: DR. QUICK Seen in last 2 years?: Yes Primary Caregiver: Other (Comment) If assistance needed, confirmed caregiver ready, willing and able to care for patient at discharge: Yes Confirmed with: STAFF AT [facility] Living Arrangements Current Residence: ([facility]) Number of Floors 1 Number of Entry Steps: (LEVEL ENTRY) Bed/Bath Levels: Both first floor Facility: Long-Term/[facility] Care Facility Name: [facility] Plan to Return: Yes Lives with: Other (Comment) (ECF) Support Systems: Children, Comments (Other) (F STAFF) Activities of Daily Living Ambulation: Total Care Bathing/Dressing: Total Care Elimination/Continence/Toileting : Total Care Feeding: asst .set up Who Assists with Activities of Daily Living: ECF STAFF Instrumental Activities of Daily Living Prescription Coverage: Yes Pharmacy Used: [facility] STAFF Medication Management: Medication dispenser Who assists with medication securing and setup?: [facility] Transportation/Shopping: Assistance Provider Transportation/Shopping Assistance Provider Name: PAYOR PROVIDED TRANSPORT Transportation Mode: Payer provided transport service Needs Assistance with Transportation at Discharge: Yes Meal Preparation: Assistance Provider Meal Prep Assistance Provider Name: [facility] Laundry/Cleaning: Assistance Provider Laundry/Cleaning Assistance Provider Name: [facility] Finances/Bill Paying: Assistance Provider Finances/Bill Payer Assistance Provider Name: DAUGHTER Communication: Independent, Emergency Call System Types of Care Services/Equipment Utilized Care Services: Dialysis Type: NA Durable Medical Equipment: Mohamud Lift, Hospital Bed, oxygen, Patient's Goal/Discharge Plan Patient expects to be discharged to: RETURN TO [facility] Discharge Planning Actions: Continue to follow Patient's Choice Rights and [employer] and Collaborative Relationships Disclosed as Indicated for Post-Acute Care: NA Interdisciplinary Team Engagement: Social Work Referral for: Additional Information: Inpatient status from [facility] with altered mental status. Recent hospitalization for UTI and is receiving iv invanz at longterm via picc line. ID consulted. Repeat blood culture in am, bs ac and hs with ss coverage, daily labs, us of right upper ext negative for DVT. Did call and speak with nurse Jenna at [facility] patient is mohamud lift at facility, is able to feed herself, takes pills in applesauce, is diabetic and ss coverage. She believes patient requires oxygen at the facility. Patient is prison at facility and Jenna believes has been there for about a year. Tentative discharge plan is to return to facility when medically stable. Did speak with patient's daughter Alexandro and she is agreeable with patient returning to [facility] when medically stable. . Vanessa Vu RN [facility] 03-06-2024 Note Formatting of this n ote might be different from the original. Tasked SURVEILLANCE MONITOR to place referral in careport to return to [facility] under ICF level of care. . [facility] 03-06-2024 Note Formatting of this n ote might be different from the original. Tasked SURVEILLANCE MONITOR to place referral in careport to return to [facility] under ICF level of care. . [facility] 03-06-2024 Note Tasked SURVEILLANCE MONITOR to place referral in careport to return to [facility] under ICF level of care. . [facility] 03-06-2024 Note Hospitalist Progress Note 03/06/2024 [phone]: Please page me ([phone]) for patient care issues. [phone]: Please page [facility] Hospitalist for any issues. Subjective: Admit Date: 03/05/2024 PCP: Lucy Oscar#: [id number] Interval History: No overnight issues. Denies [...] History: Diagnosis Date CHF (congestive heart failure) ([facility]) COPD (chronic obstructive pulmonary disease) ([facility]) Diabetes mellitus ([facility]) LABS: CBC: Recent Labs 03/05/242029 WBC 8.7 RBC 3.19* HGB 9.3* HCT 29.7* MCV 93.1 RDW 16.5* PLT 342 BMP: Recent Labs 03/05/242011 NA 137 K 4.7 CL 104 CO2 25 BUN 24* CREATININE 1.23* GLUCOSE 144* CALCIUM 9.1 ANIONGAP 7 LIVER PROFILE: Recent Labs 03/05/242011 AST 21 ALT 22 BILITOT 0.4 ALKPHOS 95 PROT 5.7* PT/INR: No results for input(s): "PROTIME", "INR" in the last 72 hours. CARDIAC ENZYMES: No results for input(s): "TROPONINI" in the last 72 hours. Procalcitonin: No results found for: "PROCAL" COVID-19 PCR: No results for input(s): "COVID19" in the last 72 hours. Objective: Vitals: [...] failure Breathing treatments Baseline on 3-4L via RI CAD ASA and statin HLD Statin Anxiety/depression [...] Alexandro Cote Mobile Relation: Daughter Preferred language: Nigerian Food Concession Manager needed? No Carmen Talamantes DO Division of Hospitalist Medicine Inpatient Medical Services/[facility] [place] [place] PAGER: [facility] 03-06-2024 History and physical note Images from the original note were not included. History and Physical [facility] Kimberly Patel : 1955 AGE 68 [...] PRESENT) HPI: She was sent over from [facility], for altered mental status Report given by [facility] was concerned that she was hallucinating at [...] of Systems: She denies almost all symptoms. snf reports she was confused and possibly hallucinating [...] History: Diagnosis Date CHF (congestive heart failure) ([facility]) COPD (chronic obstructive pulmonary disease) ([facility]) Diabetes mellitus ([facility]) Recent uti Past Surgical History: Procedure Laterality [...] QT Interval 338 QTC Interval 448 P Stanley 7 QRS Stanley -44 T Wave Stanley 79 MI Interval 159 Impression Sinus tachycardia with irregular rate Inferior infarct, old Anterior infarct, old Compared to ECG 04/30/22 Irregular rate now noted, likely PAC Electronically Signed On 02-22-2024 00:36:22 EDT by Keven Cano Assessment/Plan and Medical Decision Making 68-year-old sent over from [facility] with altered mental status and malfunctioning PICC [...] pharmacologic and mechanical contraindicated 03/06/2024 Kimberly Patel [id number] Any scheduled follow up appointments No future appointments. Extended Emergency Contact Information Primary Emergency Contact: Alexandro Cote Mobile Relation: Daughter Preferred language: Nigerian Food Concession Manager needed? No Portions of this note may be electronically transcribed. Please forward a copy of this H&P to the primary care physician. [facility] 03-06-2024 History and physical note Images from the original note were not included. History and Physical [facility] Kimberly Patel : 1955 AGE 68 [...] PRESENT) HPI: She was sent over from critical access hospital, for altered mental status Report given by [facility] was concerned that she was hallucinating at [...] of Systems: She denies almost all symptoms. snf reports she was confused and possibly hallucinating [...] History: Diagnosis Date CHF (congestive heart failure) ([facility]) COPD (chronic obstructive pulmonary disease) ([facility]) Diabetes mellitus ([facility]) Recent uti Past Surgical History: Procedure Laterality [...] QT Interval 338 QTC Interval 448 P Stanley 7 QRS Stanley -44 T Wave Stanley 79 MI Interval 159 Impression Sinus tachycardia with irregular rate Inferior infarct, old Anterior infarct, old Compared to ECG 04/30/22 Irregular rate now noted, likely PAC Electronically Signed On 02-22-2024 00:36:22 EDT by Keven Cano Assessment/Plan and Medical Decision Making 68-year-old sent over from [facility] with altered mental status and malfunctioning PICC [...] of her home medications based off the [facility] list Resume diabetic diet I discussed the need for admission with the emergency provider. -DVT prophylaxis: [x] Lovenox [] Heparin [] SCDs [x] Encourage ambulation [] Already on Anticoagulation [] Pharmocologic prophylaxis on hold to due risk bleed/procedure [] Low risk, ambulatory [] Both pharmacologic and mechanical contraindicated 03/06/2024 Kimberly Patel [id number] Any scheduled follow up appointments No future appointments. Extended Emergency Contact Information Primary Emergency Contact: Alexandro Cote Mobile Relation: Daughter Preferred language: Nigerian Food Concession Manager needed? No Portions of this note may be electronically transcribed. Please forward a copy of this H&P to the primary care physician. documented in this encounter [facility] 03-06-2024 Note History and Physical [facility] Kimberly Patel : 1955 AGE 68 [...] PRESENT) HPI: She was sent over from critical access hospital, for altered mental status Report given by [facility] was concerned that she was hallucinating at [...] of Systems: She denies almost all symptoms. snf reports she was confused and possibly hallucinating [...] History: Diagnosis Date CHF (congestive heart failure) ([facility]) COPD (chronic obstructive pulmonary disease) ([facility]) Diabetes mellitus ([facility]) Recent uti Past Surgical History: Procedure Laterality [...] senna-docusate sodium (Sen (more content not included)... [facility] 03-05-2024 Emergency department Note ROTO MIXER OPERATOR called for USIV and labs Marjorie Stephens RN 03/05/241941 [facility] 03-05-2024 Emergency department Note ROTO MIXER OPERATOR called for USIV and labs Mrajorie Stephens RN 03/05/241941 EMERGENCY DEPARTMENT ENCOUNTER Pt [...] (fourteen) days. ERGOCALCIFEROL (VITAMIN D-2) 1.25 MG (49148 UT) CAPSULE Take 1.25 mg by mouth [...] Culture. Procedure Abnormality Status --------- ------ Complete Urinalysis[[id number]] Abnormal Final result Please view results for [...] signed) Emergency Medicine Provider Janie Cortez MD 03/05/240 Pt arrived via EMS from [facility] for complaints of increased confusion and hallucinations at dinner. When EMS arrived, pt was A&O x4. During transport, pt had intermittent confusion in EMS. Pt was seen a week ago in [facility] and was being treated for UTI, which she has completed 1st ATB and is on 2nd one. Pt has PICC line in RAC, but entire arm is painful to touch. documented in this encounter [facility] 03-05-2024 Emergency department Triage note Pt arrived via EMS from [facility] for complaints of increased confusion and hallucinations at dinner. When EMS arrived, pt was A&O x4. During transport, pt had intermittent confusion in EMS. Pt was seen a week ago in [facility] and was being treated for UTI, which she has completed 1st ATB and is on 2nd one. Pt has PICC line in RAC, but entire arm is painful to touch. [facility] 03-05-2024 Physician Emergency department Note EMERGENCY DEPARTMENT [...] History: Diagnosis Date CHF (congestive heart failure) ([facility]) COPD (chronic obstructive pulmonary disease) ([facility]) Diabetes mellitus ([facility]) SURGICAL HISTORY Past Surgical History: Procedure Laterality [...] (fourteen) days. ERGOCALCIFEROL (VITAMIN D-2) 1.25 MG (51368 UT) CAPSULE Take 1.25 mg by mouth [...] Culture. Procedure Abnormality Status --------- ------ Complete Urinalysis[[id number]] Abnormal Final result Please view results for [...] other clinicians: Admitting team Dr. Fletcher from [facility] hospitalist Admission Criteria: The patient needs Med/surg [...] Medicine Provider Janie Cortez MD 03/05/[address] [facility] 02-28-2024 Note Hospitalist Discharg e Summary Kimberly [...] History: Diagnosis Date CHF (congestive heart failure) ([facility]) COPD (chronic obstructive pulmonary disease) ([facility]) Diabetes mellitus ([facility]) Procedures: - Right-sided PICC placement (02/27/24) Hospital [...] Disposition: Patient discharged in stable condition to [facility] . Greater than 31 minutes spent discharging the patient and coming up with patient discharge plan. Vitals: BP 142/69 (BP Location: Right arm, Patient Position: Lying) Pulse 80 Temp 37.3 ?C (99.1 ?F) (Temporal) Resp 18 Ht 5' 5" (1.651 m) Wt 249 lb 6.4 oz [...] MG tablet Common (more content not included)... [facility] 02-28-2024 Miscellaneous Notes Dc back to [facility] this evening at 6:00. [facility] messaged the facility with dc time. Discussed dc time with patients daughter Alexandro. She did have a question about patients iron and a chat message was sent to Dr. Mendoza. Ambulance form completed. Discharge med list transmitted to return back to [facility] via [employer] [employer] per TCC request. Images from the original note were not included. Care Management Progress Note Discharge order placed. ANN completed. SURVEILLANCE MONITOR tasked to send discharge paperwork & OPAT to [facility]. SAFETY SCIENTIST notified to set up transport. SNF notified of discharge. Discharge Milestones and Delays Expected Date/Time: 02/28/2024 Afternoon Disposition: Fdc Facility Transport status: No current request Discharge Milestones Place discharge order Complete med reconciliation Case mgmt discharge readiness Clinical Stability Diagnsotic Workup Expected Discharge History Expected Date/Time Set By Reviewed At 02/28/2024 Afternoon Cheko Mendoza MD 02/28/2024 1:56 PM 02/24 Need opat and confirmation from [facility] they take take IV Invanze. 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 Await review and response regarding ability to accept. TCC notified. Images from the original note were not included. Care Management Progress Note Medical record reviewed & report received from RN in AM rounds.Pt admitted due to sepsis. ID following recommending IV antibiotic through 03/08. Opat form in chart Geriatrics, ID and wound care following. [facility] can accommodate Invanz infusions. Pt is retirement at [facility] & does not need insurance approval to return. PICC placed today. Awaiting attending rounds for decision on discharge today. Discharge Milestones and Delays Expected Date/Time: 02/27/[address] discharge order Complete med reconciliation Case mgmt discharge readiness Clinical Stability Diagnsotic Workup Expected Discharge History Expected Date/Time Set By Reviewed At 02/27/2024 GEORGI Davis 02/26/2024 10:10 AM 02/24 Need opat and confirmation from [facility] they take take IV Invanze. Patient is a retirement bed hold." 02/26/2024 Sejal Thomas RN 02/25/2024 4:02 PM 02/24/2024 Janie Finch MD 02/21/2024 9:39 PM 02/24/2024 Janie Finch MD 02/21/2024 6:09 PM Length of Stay (Days): 6 GMLOS: 5.1 Referral placed to return back to [facility] via [facility] per TCC request. Await review and response regarding ability to accept. TCC notified. Images from the original note were not included. Care Management Progress Note Chart reviewed. Patient continues on for treatment of confusion and altered mental status. Patient has severe sepsis and awaiting improvement in GFR before discharge. Regular diet. 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 Geriatrics, ID and wound care following. Patient from [facility] retirement. Sent [employer] message today to facility needing confirmation if they can accept IV Invanz -awaiting final response. Patient is total care and bed bound at facility. Will need picc line once blood cultures are final. Uses mohamud lift at facility. DC plan: return to [facility], when medically ready. [facility] tasked to send remaining updates to the facility. Messaged ID STATOR WINDER D. Signs requesting opat when ready. Discharge Milestones and Delays Expected Date/Time: 02/26/[address] discharge order Complete med reconciliation Case mgmt discharge readiness Clinical Stability Diagnsotic Workup Expected Discharge History Expected Date/Time Set By Reviewed At 02/26/2024 Sejal Thomas RN 02/25/2024 4:02 PM 02/24 Need opat and confirmation from [facility] they take take IV Invanze. 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 Mental status improved. [facility] clinical stability Chart reviewed. Per Geriatrics consult, plan is to follow up Sunday. IM note from 02/21 anticipates discharge on 02/24. Messaged bedside RN to request update if discharge orders are placed. TCC will continue to follow. Weekend dc form ( ambulance form) completed and placed on patients chart in the event she is ready for dc back to [facility] this weekend. Referral placed to return back to [facility] via [facility] per TCC request. Await review and response regarding ability to accept. TCC notified. Care Managment Initial Assessment Date: 02/22/2024 Patient Name: Kimberly Patel : 1955 Patient Information Source of Information: Patient, Patient In Mold [employer] Name/Contact Information: Alexandro Cote, DTR [phone] Cognition/Language: WFL - Within Functional Limits Permission given to speak with patient passenger service representative/caregiver as indicated: Yes Confirmation of Payer with patient/family: Yes Payer Name: Medicare A/B and [facility] Medicaid : No Confirmation of Primary Care Physician: Confirmed PCP Name: Lucy Quick Seen in last 2 years?: Yes Primary Caregiver: Self If assistance needed, confirmed caregiver ready, willing and able to care for patient at discharge: Confirmed with: Living Arrangements Current Residence: Number of Floors Number of Entry Steps: Bed/Bath Levels: Facility: Long-Term/[facility] Care Facility Name: [facility] Plan to Return: Lives with: Other (Comment) (Facility staff) Support Systems: Children Activities of Daily Living Ambulation: Total Care Bathing/Dressing: Total Care Elimination/Continence/Toileting : Total Care Feeding: Total Care Who Assists with Activities of Daily Living: Nursing staff at [facility] Instrumental Activities of Daily Living Prescription Coverage: Yes Pharmacy Used: Long-Term Medication Management: Transportation/Shopping: Independent (Long-Term) Transportation Mode: Payer provided transport service Needs Assistance with Transportation at Discharge: Meal Preparation: Assistance Provider Meal Prep Assistance Provider Name: Long-Term Laundry/Cleaning: Assistance Provider Laundry/Cleaning Assistance Provider Name: Long-Term Finances/Bill Paying: Assistance Provider Finances/Bill Payer Assistance Provider Name: Long-Term Communication: Assistance Types of Care Services/Equipment Utilized Care Services: Dialysis Type: NA Durable Medical Equipment: Mohamud Lift Patient's Goal/Discharge Plan Patient expects to be discharged to: Return to [facility] Discharge Planning Actions: Continue to follow Patient's Choice Rights and [employer] and Collaborative Relationships Disclosed as Indicated for Post-Acute Care: NA Interdisciplinary Team Engagement: Social Work Referral for: Additional Information: Chart reviewed. Patient admitted to [facility] for treatment of confusion and altered mental status. New UTI. CHF, DM. On IV Rocephin. Regular diet. 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 Geriatrics. Met with patient at bedside today. Explained role. Patient reports she is tired and directs me to speak with her daughter. Spoke with Alexandro Cote over the phone, explained role. She is very pleasant. 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 She reports patient is a total care and bed bound at facility. Uses a mohamud lift. Will arrange transportation when ready. SURVEILLANCE MONITOR tasked to begin referral; response pending. Tasked [...] barriers include antibiotics. documented in this encounter [facility] 02-28-2024 Note Care Management Prog ress Note Discharge order placed. ANN completed. SURVEILLANCE MONITOR tasked to send discharge paperwork & OPAT to [facility]. SAFETY SCIENTIST notified to set up transport. SNF notified of discharge. Discharge Milestones and Delays Expected Date/Time: 02/28/2024 Afternoon Disposition: Fdc Facility Transport status: No current request Discharge Milestones Place discharge order Complete med reconciliation Case mgmt discharge readiness Clinical Stability Diagnsotic Workup Expected Discharge History Expected Date/Time Set By Reviewed At 02/28/2024 Afternoon Cheko Mendoza MD 02/28/2024 1:56 PM 02/24 Need opat and confirmation from [facility] [place] they take take IV Invanze. 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 No Past Surgical History: Past Surgical History: Procedure Laterality Date CHOLECYSTECTOMY COLONOSCOPY throat biopsy Immunization History: There is no immunization history on file for this patient. Active Problems: Medical Problems Problem List * (Principal) Sphenoid sinusitis, unspecified chronicity Bullous pemphigoid Acute on chronic diastolic congestive heart failure (HCC) Bipolar disorder, most recent episode depressed (CMS/HCC) ([facility]) UTI (urinary tract infection) Physical debility (Chronic) Other hyperlipidemia CAD (coronary artery disease) Primary hypertension Neuropathy Bacteremia Acute kidney injury superimposed on CKD ([facility]) ([facility]) Type 2 diabetes mellitus with diabetic polyneuropathy, with long-term current use of insulin ([facility]) Isolation/Infection: Contact ESBL Nurse Assessment: Last Vital Signs: BP 125/57 (BP Location: Left arm, Patient Position: Lying) Pulse 82 Temp 36.5 C (97.7 F) (Temporal) Resp 18 Ht 1.651 m (5' 5") Wt 113 kg (249 lb 6.4 oz) SpO2 100% BMI 41.50 kg/m Last documented pain score (0-10 scale): Last Weight: Wt Readings from Last 1 Encounters: 02/25/24 113 kg (249 lb 6.4 oz) Mental Status: ANN Patient Mental Status: oriented and alert IV Access: ANN IV Access: PICC - site: upper arm right, condition {iv condition:569378::"patent","no redness"}, insertion date: 02/27/2024 Nursing Mobility/ADLs: Walking Total assistance Transfer Total assistance Bathing Total assistance Dressing Total assistance Toileting Total assistance Feeding Independent Watch Supervisor Independent Med Delivery no Wound Care Documentation and Therapy: Wound/Incision 02/21/24 Pressure Injury Buttock Left (Active) Site Assessment [place];Red 05/01/24 2030 Odor None 02/26/24 0800 Drainage Amount None [...] that are sent with patient): {ANN Patient Belongings:80546} RN SIGNATURE: MANAGEMENT/SOCIAL WORK SECTION Inpatient Status Date: Readmission Risk Assessment Score: @READMISSIONRISKDETAILS@ Discharging to Facility/ Agency Name: Name: [facility] Address: [address] [place] [address] Dialysis Facility (if applicable) Name: Address: Dialysis Schedule: Phone: Fax: Sales Clerk Supervisor/Fire Investigation Lieutenant signature: ICIAN SECTION Prognosis: good Condition at [...] be sent through Care Everywhere.Fever, Adult ED (Nigerian)documented in this encounter [facility] 02-28-2024 History of Presen t illness Narrative Pt refused to allow REGULATORY ANALYST to obtain Accucheck glucose level. Nurse used am BMP glucose level of 120 for am coverage. Nurse advised pt that for lunch and dinner pt will need to have bgl levels checked prior to eating. Pt agreeable. [facility] Geriatric Medicine Inpatient Consult Service Admission [...] change in mental status. She resides at [facility]. Family reported has had several hospitalizations with similar symptoms particularly when associated UTI and bloodstream infection. Medical record shows several ED visits for change in mental status and hallucinations over past 6-9 months. History of bipolar disorder that has been under control. Reviewed all notes -PICC placed today for keno terminal operator antibiotics -dietary - no malnutrition -ID - [...] (97.8 F) (Oral) Resp 16 Ht 5' 5" (1.651 m) Wt 249 lb 6.4 oz [...] Daily, Rob Lai MD, 81 mg at 02/27/2407 atorvastatin (Lipitor) tablet 40 mg, 40 mg, Oral, Daily, Rob Lai MD, 40 mg at 02/27/24 09 bisacodyl (Dulcolax) EC tablet 5 mg, 5 mg, Oral, Daily PRN, Rob Lai MD cyanocobalamin (Vitamin B-12) tablet 1,000 mcg, 1,000 mcg, Oral, Daily, Marisa Su, GUM MIXER - FINANCIAL DEVELOPER, 1,000 mcg at 02/27/24 0917 dextrose 5 [...] Nightly, Shmuel Trevino MD, 4 Units at 04/30/24 2115 ipratropium-albuterol (Duo-Neb) 0.5-2.5 mg/3 mL nebulizer solution 3 mL, 3 mL, Nebulization, q4h PRN, Shmuel Trevino MD isosorbide mononitrate ER (Imdur) 24 hr tablet 30 mg, 30 mg, Oral, Daily, Rob Lai MD, 30 mg at 02/27/24905 ketoconazole (NIZOral) 2 % cream, , Topical, BID, Manisha Tao, GUM MIXER - FINANCIAL DEVELOPER, Given at 02/27/24915 methenamine hippurate (Hiprex) tablet 1 g, 1 g, Oral, BID, Rob Lai MD, 1 g at 02/27/24916 metoprolol succinate XL (Toprol-XL) 24 hr tablet 25 mg, 25 mg, Oral, Daily, Rob Lai MD, 25 mg at 02/27/24905 naloxone (Narcan) injection 0.4 mg, 0.4 mg, [...] Daily, Blanche Castillo MD, 10 mEq at 02/27/24905 promethazine (Phenergan) tablet 12.5 mg, 12.5 mg, Oral, q6h PRN OR promethazine (Phenergan) injection 12.5 mg, 12.5 mg, IntraMUSCular, q6h PRN, 12.5 mg at 02/22/246 OR promethazine (Phenergan) suppository 12.5 mg, 12.5 mg, Rectal, q6h PRN, Rob Lai MD QUEtiapine (SEROquel) tablet 12.5 mg, 12.5 mg, Oral, BID PRN, Shmuel Trevino MD ranolazine (Ranexa) 12 hr tablet 1,000 mg, 1,000 mg, Oral, BID, Rob Lai MD, 1,000 mg at 02/27/24 09 senna-docusate sodium (Senokot-S) 8.6-50 MG tablet 1 tablet, 1 tablet, Oral, BID, Shmuel Trevino MD, 1 tablet at 02/27/24 09 venlafaxine XR (Effexor XR) 24 hr capsule [...] 1.267 02/22/2024 Lab Results Component Value Date [id number] 294 02/22/2024 No results found for: "VITD25" Reviewed: allergies, previous encounters, imaging, active problem [...] muscle mass loss Fluid Accumulation: Mild Extremities Psychological Operations Specialist Strength: Not Performed Nutrition Assessment: chart reviewed. Severe sepsis improved. Acute metabolic encephalopathy due to UTI- improving, ESBL- E coli bacteremia. PICC line planned. ID and Geriatrics following. 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 Pt sleeping on visit -awakened easily reports good appetite tolerating meals. Discharge planning to ECF -pt reports possible discharge today Estimated Daily Nutrient Needs: Energy Requirements Based On: Kcal/kg Weight Used for Energy Requirements: Eugene Weight for Energy Calculation (kg): 57 kg Total Energy Requirements (kcals/day): 1425- 1710 (25-30 kcal/kg IBW) Weight Used for Protein Requirements: Eugene Weight in Kg Used for Protein Requirements: [...] Ordered Anthropometric Measures: Height: 165.1 cm (5' 5") Current Body Weight: 107 kg (235 lb 3.7 oz) Weight Source: Bed Scale Admission Body Weight: 133 kg (294 lb) (stated) Usual Body Weight: 114 kg (251 lb) (07/09/2023) % Weight Change (Calculated): -6.3 Eugene Body Weight (lbs) (Calculated): 125 lbs Eugene Body Weight (Kg) (Calculated): 57 kg % Eugene Body Weight (Calculated): 188.2 % BMI (kg/m2) [...] Continue current diet Debbie Mccoy RD Contact: [phone] or via Secure Chat Images from the original note were not included. [facility] - Infectious Diseases Attending Progress Note Subjective: [...] (98.2 F) Temporal 81 17 100 % 02/25/24 2054 128/84 36.4 C (97.5 F) Temporal 86 [...] Sensation is intact. Motor: No tremor. Coordination: Pyyfqx-Lacj-Fogoqp Test normal. Psychiatric: Attention and Perception: Perception normal. Speech: Speech is ok. Labs: Recent Labs 02/24/2421902/25/2422402/26/24 0209 NA 135 135 136 K 3.4* 4.0 4.2 CL 102 106 107 CO2 30 28 30 BUN 33* 28* 23* CREATININE 1.42* 1.25* 1.23* GLUCOSE 105* 149* 113* CALCIUM 8.5 8.3* 8.5 PROT 5.2* 4.7* 4.9* BILITOT 0.3 0.2 0.2 ALKPHOS 66 63 75 AST 27 18 18 ALT 24 20 19 Recent Labs 02/24/2421902/25/2422402/26/24 021 WBC 8.3 6.5 7.5 HGB 8.6* 8.1* 8.2* HCT 27.7* 26.5* 26.7* PLT 196 210 244 LYMPHOPCT 22.7 30.8 26 MONOPCT 12.4 10.0 10 BASOPCT 0.2 0.5 -- NEUTROABS 4.9 3.3 -- Micro: No results for input(s): "COVID19" in the last 72 hours. 02/25/2024 1536 02/25/2024 1540 Urine culture [[id number]] Urine, Clean Catch In process Component Value No component results 02/23/2024 0439 02/26/2024 1101 Blood culture Site #2 - Assess for effectiveness of treatment [[id number]] Blood, Venous Preliminary result Component Value Blood Culture No growth at 72 hours P 02/23/2024 0438 02/26/2024 1101 Blood culture Site #1 - Assess for effectiveness of treatment [[id number]] Blood, Venous Preliminary result Component Value Blood Culture No growth at 72 hours P 02/21/2024 1759 02/25/2024 0824 Urine culture [[id number]] (Abnormal) Urine, Clean Catch Final result Component Value Urine Culture Normal urogenital krys present >100,000 CFU/mL Escherichia coli Abnormal This phenotype is suggestive of an ESBL-producing organism. Treatment with beta-lactam antibiotics other than carbapenems may not be effective. >100,000 CFU/mL Enterococcus faecalis Abnormal 02/21/2024 1135 02/21/2024 1628 COVID-19, Flu A/B, and RSV Combo [[id number]] Swab from Nasopharynx Final result Component Value SARS-CoV-2 Not Detected Respiratory Syncytial Virus Not Detected Influenza A Not Detected Influenza B Not Detected 02/21/2024 1124 02/24/2024 0948 Blood culture Site #1 - Suspected Infection [[id number]] (Abnormal) Blood, Venous Final result Component Value Blood Culture Escherichia coli Panic This phenotype is suggestive of an ESBL-producing organism. Treatment with beta-lactam antibiotics other than carbapenems may not be effective. This is an edited result. Previous organism was Gram-negative bacilli on 02/22/2024 at 0622 EDT. 02/21/2024 1124 02/22/2024 0622 Blood Culture Identification - Anaerobic [[id number]] (Abnormal) Blood, Venous Final result Component Value Escherichia coli Detected Abnormal CTX-M (ESBL gene) Detected Abnormal Lines: PIV Radiography/Echo/Other: US renal complete [[id number]] Collected: 02/22/241800 Order Status: Completed Updated: 02/22/241806 [...] chest angiogram w and/or wo IV contrast [[id number]] Collected: 02/21/24 1348 Order Status: Completed Updated: 02/21/24 1352 Narrative: Patient Name: KIMBERLY PATEL : 1955 [facility] Manort#: [id number] Exam Date/Time: 02/21/2024 13:41 Procedure: CT CHEST [...] 1:56 PM EDT XR chest 1 view [[id number]] Collected: 02/21/24 1219 Order Status: Completed Updated: 02/21/24 1220 Narrative: Patient Name: KIMBERLY PATEL : 1955 Exam Date/Time: 02/21/2024 12:03 Procedure: XR CHEST [...] PM EDT CT head wo IV contrast [[id number]] Collected: 02/21/24 1153 Order Status: Completed Updated: 02/21/24 1156 Narrative: Patient Name: KIMBERLY PATEL : 1955 Exam Date/Time: 02/21/2024 11:44 Procedure: CT HEAD [...] from the original note were not included. [phone]: Please page me ([phone]) for patient care issues. [phone]: Please page [facility] Hospitalist for any issues. Subjective: Admit Date: [...] 196 210 244 BMP: Recent Labs 02/24/2421902/25/2422402/26/24 020 NA 135 135 136 K 3.4* 4.0 [...] 4.7* 4.9* PT/INR: No results for input(s): "PROTIME", "INR" in the last 72 hours. CARDIAC ENZYMES: No results for input(s): "TROPONINI" in the last 72 hours. Procalcitonin: No results found for: "PROCAL" Objective: Vitals: BP 152/74 (BP Location: Right arm, Patient Position: Sitting) Pulse 81 Temp 36.8 C (98.2 F) (Temporal) Resp 17 Ht 5' 5" (1.651 m) Wt 249 lb 6.4 oz [...] Alexandro Cote Mobile Relation: Daughter Preferred language: Nigerian Food Concession Manager needed? No Advance Directive: Full Code Discharge planning: TBD Ann Reed MD Division of Hospitalist Medicine Inpatient Medical Services/[facility] [place] [place] [facility] Geriatric Medicine Inpatient Consult Service Admission [...] change in mental status. She resides at [facility]. Family reported has had several hospitalizations [...] States she tried therapy at facility and "didn't work". -Nursing reports patient has flat affect. No [...] (97.2 F) (Temporal) Resp 18 Ht 5' 5" (1.651 m) Wt 249 lb 6.4 oz [...] Rob Lai MD, 81 mg at 02/25/24 0911 atorvastatin (Lipitor) tablet 40 mg, 40 mg, [...] Shmuel Trevino MD, 40 mg at 02/25/24 0912 ertapenem (INVanz) 1,000 mg in sodium chloride 0.9 % 50 mL IVPB Mini-Bag Plus, 1,000 mg, IntraVENous, q24h, Clare Del Cid MD, Stopped at 02/25/2442 famotidine (Pepcid) tablet 40 mg, 40 mg, Oral, Daily, Rob Lai MD, 40 mg at 02/25/24 0911 glucagon (human recombinant) injection 1 mg, 1 mg, IntraMUSCular, PRN, Shmuel Trevino MD glucose oral gel 15 g, 15 g, Oral, PRN, Shmuel Trevino MD insulin glargine (Lantus) injection 50 Units, 50 Units, SubCUTAneous, BID, Shmuel Trevino MD, 50 Units at 02/25/24 0912 Insulin Lispro (Humalog) injection 0-12 Units, 0-12 [...] Rob Lai MD, 30 mg at 02/25/24 09 ketoconazole (NIZOral) 2 % cream, , Topical, BID, Manisha Tao, DARREL - FINANCIAL DEVELOPER, Given at 02/25/24912 methenamine hippurate (Hiprex) tablet 1 g, 1 g, Oral, BID, Rob Lai MD, 1 g at 02/25/24 09 metoprolol succinate XL (Toprol-XL) 24 hr tablet 25 mg, 25 mg, Oral, Daily, Rob Lai MD, 25 mg at 02/25/24 09 naloxone (Narcan) injection 0.4 mg, 0.4 [...] Daily, Blanche Castillo MD, 10 mEq at 02/25/24 0911 promethazine (Phenergan) tablet 12.5 mg, 12.5 mg, [...] 1.267 02/22/2024 Lab Results Component Value Date [id number] 294 02/22/2024 No results found for: "VITD25" Reviewed: allergies, previous encounters, social history, imaging, active problem lists, medications, and labs Images from the original note were not included. [phone]: Please page va ([phone]) for patient care issues. [phone]: Please page [facility] [place] [place] night Hospitalist for any issues. Subjective: Admit [...] Net 200 ml LABS: CBC: Recent Labs 02/23/242 02/24/2421902/25/24224 WBC 7.5 8.3 6.5 RBC 3.08* 3.03* 2.88* HGB 8.7* 8.6* 8.1* HCT 28.1* 27.7* 26.5* MCV 91.2 91.4 92.0 RDW 15.6* 15.1* 14.8 PLT 182 196 210 BMP: Recent Labs 02/23/24 0322 02/24/2421902/25/24224 NA 135 135 135 K 3.7 3.4* 4.0 CL 101 102 106 CO2 28 30 28 BUN 35* 33* 28* CREATININE 1.62* 1.42* 1.25* GLUCOSE 111* 105* 149* CALCIUM 8.1* 8.5 8.3* ANIONGAP 6 3 1* LIVER PROFILE: Recent Labs 02/23/24 0322 02/24/24 0220 02/25/24 0225 AST 23 27 18 ALT 20 24 20 BILITOT 0.4 0.3 0.2 ALKPHOS 70 66 63 PROT 5.1* 5.2* 4.7* PT/INR: No results for input(s): "PROTIME", "INR" in the last 72 hours. CARDIAC ENZYMES: No results for input(s): "TROPONINI" in the last 72 hours. Procalcitonin: No results found for: "PROCAL" Objective: Vitals: BP 140/67 (BP Location: Right arm, Patient Position: Lying) Pulse 82 Temp 36.2 C (97.2 F) (Temporal) Resp 18 Ht 5' 5" (1.651 m) Wt 249 lb 6.4 oz [...] Alexandro Cote Mobile Relation: Daughter Preferred language: Nigerian Food Concession Manager needed? No Advance Directive: Full Code Discharge planning: TBD Ann Reed MD Division of Hospitalist Medicine Inpatient Medical Services/[facility] [place] [place] Images from the original note were not [...] History: Diagnosis Date CHF (congestive heart failure) ([facility]) COPD (chronic obstructive pulmonary disease) ([facility]) Diabetes mellitus ([facility]) LABS: CBC: Recent Labs 02/22/2440602/23/2432102/24/24 0220 WBC 9.6 7.5 8.3 RBC 3.36* 3.08* 3.03* HGB 9.6* 8.7* 8.6* HCT 30.2* 28.1* 27.7* MCV 89.9 91.2 91.4 RDW 15.6* 15.6* 15.1* PLT 195 182 196 BMP: Recent Labs 02/22/2440602/23/2432102/24/24 0220 NA 132* 135 135 K 3.9 3.7 3.4* CL 99 101 102 CO2 29 28 30 BUN 32* 35* 33* CREATININE 1.17* 1.62* 1.42* GLUCOSE 142* 111* 105* CALCIUM 8.2* 8.1* 8.5 ANIONGAP 5 6 3 LIVER PROFILE: Recent Labs 02/22/2440602/23/2402/23/24 0220 AST 21 23 27 ALT 18 20 24 BILITOT 0.6 0.4 0.3 ALKPHOS 75 70 66 PROT 5.3* 5.1* 5.2* PT/INR: Recent Labs 02/21/24 1124 PROTIME 10.5 INR 1.0 CARDIAC ENZYMES: Recent Labs 02/21/24 1124 02/21/24 1535 02/21/242024 TROPONINI 0.047* 0.049* 0.052* Procalcitonin: Lab Results Component Value Date PROCAL 0.41 (H) 02/22/2024 COVID-19 PCR: No results for input(s): "COVID19" in the last 72 hours. Objective: Vitals: BP 154/68 (BP Location: Right arm, Patient Position: Lying) Pulse 79 Temp 36.9 C (98.5 F) (Temporal) Resp 16 Ht 5' 5" (1.651 m) Wt 250 lb 1.6 oz [...] coli bacteremia due to UTI Antibiotics: Ceftriaxone 02/20- Ertapenem 02/21 Pyuria with UTI. Sphenoid sinusitis Elevated troponin due to demand ischemia Stage II pressure ulcer left buttock Chronic resp failure. HFpEF Hypertension Obesity disorder. Poorly controlled DM. Plan As a result of the above findings & factors, the following mgmt was pursued: - 02/23- Blocker [employer] Contact Lens following - no dysphagia, regular solids and [...] Alexandro Cote Mobile Relation: Daughter Preferred language: Nigerian Food Concession Manager needed? No Blanche Castillo MD Division of Hospitalist Medicine [facility] Images from the original note were not included. [facility] - Infectious Diseases Attending Progress [...] and nursing note reviewed. Labs: Recent Labs 02/22/24 0407 02/23/24 0322 02/24/24 0220 NA 132* 135 135 K 3.9 3.7 3.4* CL 99 101 102 CO2 29 28 30 BUN 32* 35* 33* CREATININE 1.17* 1.62* 1.42* GLUCOSE 142* 111* 105* CALCIUM 8.2* 8.1* 8.5 PROT 5.3* 5.1* 5.2* BILITOT 0.6 0.4 0.3 ALKPHOS 75 70 66 AST 21 23 27 ALT 18 20 24 PROCAL 0.41* -- -- Recent Labs 02/21/24 1124 02/22/24 0407 02/23/24 0322 02/24/24 0220 WBC 15.2* 9.6 7.5 8.3 HGB [...] air cells bilaterally. No acute osseous findings. " Impression: 1. No PE identified. PE cannot [...] History: Diagnosis Date CHF (congestive heart failure) ([facility]) COPD (chronic obstructive pulmonary disease) ([facility]) Diabetes mellitus ([facility]) LABS: CBC: Recent Labs 02/21/24 1124 02/22/24 0407 02/23/24 0322 WBC 15.2* 9.6 7.5 RBC 3.51* 3.36* 3.08* HGB 10.0* 9.6* 8.7* HCT 31.3* 30.2* 28.1* MCV 89.2 89.9 91.2 RDW 15.8* 15.6* 15.6* PLT 201 195 182 BMP: Recent Labs 02/21/24 1124 02/22/247 02/23/24321 NA 134* 132* 135 K 4.3 3.9 3.7 CL 98 99 101 CO2 32* 29 28 BUN 44* 32* 35* CREATININE 1.29* 1.17* 1.62* GLUCOSE 148* 142* 111* CALCIUM 8.7 8.2* 8.1* ANIONGAP 4 5 6 LIVER PROFILE: Recent Labs 02/21/24 1124 02/22/24 0407 02/23/24 032 AST 21 21 23 ALT 19 18 20 BILITOT 0.6 0.6 0.4 ALKPHOS 78 75 70 PROT 5.7* 5.3* 5.1* PT/INR: Recent Labs 02/21/241123 PROTIME 10.5 INR 1.0 CARDIAC ENZYMES: Recent Labs 02/21/24 1124 02/21/24 1535 02/21/242024 TROPONINI 0.047* 0.049* 0.052* Procalcitonin: Lab Results Component Value Date PROCAL 0.41 (H) 02/22/2024 COVID-19 PCR: No results for input(s): "COVID19" in the last 72 hours. Objective: Vitals: BP 155/80 Pulse 56 Temp 36.2 C (97.2 F) (Temporal) Resp 18 Ht 5' 5" (1.651 m) Wt 246 lb 4.8 oz [...] need Endocrinology evaluation, ID and Geriatrics following, PT/OT/AVIATION MAINTENANCE TECHNICIAN, follow up labs, continue wound care, [...] Alexandro Cote Mobile Relation: Daughter Preferred language: Nigerian Food Concession Manager needed? No SHMUEL TREVINO MD Division of Hospitalist Medicine [facility] Images from the original note were not included. Speech-Language Pathology SPEECH LANGUAGE PATHOLOGY [facility] Bedside Swallow Evaluation Patient Name: Kimberly Patel Evaluation Date: 02/23/2024 Date of : 1955 Admission Date: 02/21/2024 10:26 AM Age: 68 y.o. Room/Bed: [facility] A IMPRESSION: No s/s oropharyngeal dysphagia. No overt clinical s/s pulmonary compromise with PO. RECOMMENDATION: Recommend Regular solids and Thin liquids and meds as tolerated and the following precautions: - Small bites/sips - Alternate solid and liquids No skilled acute AVIATION MAINTENANCE TECHNICIAN indicated at this time. Please reconsult should changes occur. Subjective Patient resting in bed - requires max encouragement to participate in clinical bedside swallow evaluation. Minimal verbal output during evaluation. Dysphagia History: No history of AVIATION MAINTENANCE TECHNICIAN services in EMR with retrospective chart review Baseline Diet: Per longterm information - pt current intakes regular diet [...] History: Diagnosis Date CHF (congestive heart failure) ([facility]) COPD (chronic obstructive pulmonary disease) ([facility]) Diabetes mellitus ([facility]) Past Surgical History: Past Surgical History: Procedure Laterality Date CHOLECYSTECTOMY COLONOSCOPY throat biopsy Admission Diagnosis: Patient Active Problem List Diagnosis Date Noted Bipolar disorder, most recent episode depressed ([facility]) ([facility]) 02/22/2024 Sphenoid sinusitis, unspecified chronicity 02/21/2024 Bullous pemphigoid 11/17/2022 Acute on chronic diastolic congestive heart failure ([facility]) 08/22/2022 Physical debility 10/12/2021 Other hyperlipidemia 10/12/2021 CAD (coronary artery disease) 10/12/2021 Primary hypertension 10/12/2021 Neuropathy 10/12/2021 Bacteremia 10/12/2021 Acute kidney injury superimposed on CKD ([facility]) ([facility]) 10/12/2021 Type 2 diabetes mellitus with diabetic polyneuropathy, with long-term current use of insulin ([facility]) 10/12/2021 History of Present Illness: Kimberly Patel [...] to sleep Encounter Problems Encounter Problems (Active) AVIATION MAINTENANCE TECHNICIAN [facility] Participate in Bedside swallow evaluation Start: 02/22/24 Expected End: 02/25/24 Therapy Time AVIATION MAINTENANCE TECHNICIAN Individual Minutes Time In: 45 Time Out: 01 Minutes: 16 Nuno Eastman MA, [facility]-AVIATION MAINTENANCE TECHNICIAN Placed patient on P500 Specialty Bed [...] Unable to assess Fluid Accumulation: Mild Extremities Psychological Operations Specialist Strength: Not Performed Nutrition Assessment: 68 year old woman with PMHx: CAD, HLD, HTN, neuropathy, DMII(A1C=7.0% on 02/22/24). She presents to [facility] from SNF with AMS and reported 107*F [...] to support patient. Refused to work with AVIATION MAINTENANCE TECHNICIAN, at time of attempted assessment, noted maybe one bite taken from breakfast tray, otherwise tray untouched. Patient declined to participate in RDN assessment, stated she wanted to be left alone and sleep . Bed scale weight obtained: 106.7 kg or 235.2#. Estimated Daily Nutrient Needs: Energy Requirements Based On: Kcal/kg Weight Used for Energy Requirements: Eugene Weight for Energy Calculation (kg): 57 kg Total Energy Requirements (kcals/day): 1425- 1710 (25-30 kcal/kg IBW) Weight Used for Protein Requirements: Weight in Kg Used for Protein Requirements: Estimated Total Protein (g/day): 57-68 (1.0-1.2 g protein/kg IBW) Estimated Daily Total Fluid (ml/day): per MD Nutrition Related Findings: Edward score=13. +1 BLE edema noted. Meds: aspirin, lipitor, PPI, rocephin, insulin, toprol. Labs reviewed. 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 Wound Type: Pressure Injury, Wound Consult Pending Current Nutrition Therapies: Adult diet Regular; 4 carb choices (60 gm/meal) Current Oral Intake Average Meal Intake: Refusing to eat Average Supplements Intake: Refusing to take Anthropometric Measures: Height: 165.1 cm (5' 5") Current Body Weight: 107 kg (235 lb 3.7 oz) Weight Source: Bed Scale Admission Body Weight: 133 kg (294 lb) (stated) Usual Body Weight: 114 kg (251 lb) (07/09/2023) % Weight Change (Calculated): -6.3 Eugene Body Weight (lbs) (Calculated): 125 lbs Eugene Body Weight (Kg) (Calculated): 57 kg % Eugene Body Weight (Calculated): 188.2 % BMI (kg/m2) [...] to determine Odalys Godinez RDN, LDN, Contact: *[phone] Images from the original note were not included. OCCUPATIONAL THERAPY [facility]'s Name/MRN: Kimberly Patel ([id number]) Date: 02/22/2024 Chart reviewed. Spoke with TCC, she reports pt from SNF, is bed bound at baseline, [place], and is total care. Will discharge from caseload, pt dependent Zee Gresham OT Images from the original note were not included. [phone]: Please page me ([phone]) for patient care issues. [phone]: Please page [facility] Hospitalist for any issues. Subjective: Admit Date: 02/21/2024 PCP: Lucy Quick Room#: [id number] A Kimberly Patel is a 68 y.o. female who presents with Sphenoid sinusitis, unspecified chronicity Interval History: No overnight issues. Denies chest pain, sob, abdominal pain, nausea, vomiting, diarrhea, constipation, fevers, or chills. Adult diet Regular; 4 carb choices (60 gm/meal) 24HR INTAKE/OUTPUT: No intake or output data in the 24 hours ending 02/22/24 1109 LABS: CBC: Recent Labs 02/21/24112302/22/24 0407 WBC 15.2* 9.6 RBC 3.51* 3.36* HGB 10.0* 9.6* HCT 31.3* 30.2* MCV 89.2 89.9 RDW 15.8* 15.6* PLT 201 195 BMP: Recent Labs 02/21/24112302/22/24406 NA 134* 132* K 4.3 3.9 CL 98 99 CO2 32* 29 BUN 44* 32* CREATININE 1.29* 1.17* GLUCOSE 148* 142* CALCIUM 8.7 8.2* ANIONGAP 4 5 LIVER PROFILE: Recent Labs 02/21/24112302/22/24406 AST 21 21 ALT 19 18 BILITOT [...] (98.2 F) (Temporal) Resp 17 Ht 5' 5" (1.651 m) Wt 293 lb 3.4 oz [...] the following -clinical improvement, clearance of bacteremia, spa consultant recommendations, workup Total time spent (which include face to face and non face to face encounters) : 52 minutes Toxic drug monitoring/narrow therapeutic index drug monitoring : # Drug name : # Route administered : # Method of monitoring : Extended Emergency Contact Information Primary Emergency Contact: Alexandro Cote Mobile Relation: Daughter Preferred language: Nigerian Food Concession Manager needed? No Advance Directive: Full Code Discharge planning: PANCHITO DEL CID MD Division of Hospitalist Medicine Inpatient Medical Services/[facility] [place] [place] Images from the original note were not included. PHYSICAL THERAPY [facility] Name/MRN: Kibmerly Patel ([id number]) Date: 02/22/2024 Chart reviewed. Spoke with TCC, she reports pt from SNF, is bed bound at baseline, [place], and is total care. Will discharge from caseload, pt dependent Moe Mcelroy PT Images from the original note were not included. OCCUPATIONAL THERAPY [facility]'s Name/MRN: Kimberly Patel ([id number]) Date: 02/22/2024 Chart reviewed. Introduced self and role, pt declines therapy adamantly. Will re-attempt as schedule permits Zee Gresham OT Images from the original note were not included. PHYSICAL THERAPY [facility] Name/MRN: Kimberly Patel ([id number]) Date: 02/22/2024 Chart reviewed. Introduced self and role, pt declines therapy adamantly. Will re-attempt as schedule permits Moe Mcelroy PT Speech-Language Pathology Pt's chart reviewed. Admitted with AMS and fever. Pt on CON, CHO, NSP Regular thin diet per MAR from nursing facility. Order acknowledged for Bedside swallowing evaluation. Pt deferred at this time. "I will eat when I'm ready." "I'm tired and going to sleep". ST will continue to follow as appropriate. documented in this encounter [facility] 02-27-2024 Note Care Management Prog ress Note Medical record reviewed & report received from RN in AM rounds.Pt admitted due to sepsis. ID following recommending IV antibiotic through 03/08. Opat form in chart Geriatrics, ID and wound care following. [facility] can accommodate Invanz infusions. Pt is retirement at [facility] & does not need insurance approval to return. PICC placed today. Awaiting attending rounds for decision on discharge today. Discharge Milestones and Delays Expected Date/Time: 02/27/[address] discharge order Complete med reconciliation Case mgmt discharge readiness Clinical Stability Diagnsotic Workup Expected Discharge History Expected Date/Time Set By Reviewed At 02/27/2024 GEORGI Davis 02/26/2024 10:10 AM 02/24 Need opat and confirmation from [facility] of [place] they take take IV Invanze. Patient is a retirement bed hold." 02/26/2024 Sejal Thomas RN 02/25/2024 4:02 PM 02/24/2024 Janie Finch MD 02/21/2024 9:39 PM 02/24/2024 Janie Finch MD 02/21/2024 6:09 PM Length of Stay (Days): 6 GMLOS: 5.1 [facility] 02-26-[address] [facility] - Infectious Diseases Attending Progress [...] (98.2 ?F) Temporal 81 17 100 % 02/25/242053 128/84 36.4 ?C (97.5 ?F) Temporal 86 [...] Sensation is intact. Motor: No tremor. Coordination: Rjmkbo-Icgq-Hqclxi Test normal. Psychiatric: Attention and Perception: Perception normal. Speech: Speech is ok. Labs: Recent Labs 02/24/2421902/25/2422402/26/24 0209 NA 135 135 136 K 3.4* 4.0 4.2 CL 102 106 107 CO2 30 28 30 BUN 33* 28* 23* CREATININE 1.42* 1.25* 1.23* GLUCOSE 105* 149* 113* CALCIUM 8.5 8.3* 8.5 PROT 5.2* 4.7* 4.9* BILITOT 0.3 0.2 0.2 ALKPHOS 66 63 75 AST 27 18 18 ALT 24 20 19 Recent Labs 02/24/2421902/25/2422402/26/24 0210 WBC 8.3 6.5 7.5 HGB 8.6* 8.1* 8.2* HCT 27.7* 26.5* 26.7* PLT 196 210 244 LYMPHOPCT 22.7 30.8 26 MONOPCT 12.4 10.0 10 BASOPCT 0.2 0.5 -- NEUTROABS 4.9 3.3 -- Micro: No results for input(s): "COVID19" in the last 72 hours. 02/25/2024 1536 02/25/2024 1540 Urine culture [[id number]] Urine, Clean Catch In process Component Value No component results 02/23/2024 0439 02/26/2024 1101 Blood culture Site #2 - Assess for effectiveness of treatment [[id number]] Blood, Venous Preliminary result Component Value Blood Culture No growth at 72 hours P 02/23/2024 0438 02/26/2024 1101 Blood culture Site #1 - Assess for effectiveness of treatment [[id number]] Blood, Venous Preliminary result Component Value Blood Culture No growth at 72 hours P 02/21/2024 1759 02/25/2024 0824 Urine culture [[id number]] (Abnormal) Urine, Clean Catch Final result Component Value Urine Culture Normal urogenital krys present >100,000 CFU/mL Escherichia coli Abnormal This phenotype is suggestive of an ESBL-producing organism. Treatment with beta-lactam antibiotics other than carbapenems may not be effective. >100,000 CFU/mL Enterococcus faecalis Abnormal 02/21/2024 1135 02/21/2024 1628 COVID-19, Flu A/B, and RSV Combo [[id number]] Swab from Nasopharynx Final result Component Value SARS-CoV-2 Not Detected Respiratory Syncytial Virus Not Detected Influenza A Not Detected Influenza B Not Detected 02/21/2024 1124 02/24/2024 0948 Blood culture Site #1 - Suspected Infection [[id number]] (Abnormal) Blood, Venous Final result Component Value Blood Culture Escherichia coli Panic This phenotype is suggestive of an ESBL-producing organism. Treatment with beta-lactam antibiotics other than carbapenems may not be effective. This is an edited result. Previous organism was Gram-negative bacilli on 02/22/2024 at 0622 EDT. 02/21/2024 1124 02/22/2024 0622 Blood Culture Identification - Anaerobic [[id number]] (Abnormal) Blood, Venous Final result Component Value Escherichia coli Detected Abnormal CTX-M (ESBL gene) Detected Abnormal Lines: PIV Radiography/Echo/Other: US renal complete [[id number]] Collected: 02/22/241800 Order Status: Completed Updated: 02/22/241806 Narrative: Patient Name: KIMBERLY PATEL : 1955 Exam Date/Time: 02/22/2024 17:23 Procedure: US RENAL COMPLETE Ordering Provider: DEL CID DEEPTHI Reason For Exam: r/o obstruction Examination: Renal ultrasound Clinic (more content not included)... [facility] 02-25-2024 Note Referral placed to r eturn back to [facility] via [facility] per TCC request. Await review and response regarding ability to accept. TCC notified. [facility] 02-25-2024 Note Care Management Prog ress Note Chart reviewed. Patient continues on 2 for treatment of confusion and altered mental status. Patient has severe sepsis and awaiting improvement in GFR before discharge. Regular diet. 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 Geriatrics, ID and wound care following. Patient from [facility] retirement. Sent [employer] message today to facility needing confirmation if they can accept IV Invanz -awaiting final response. Patient is total care and bed bound at facility. Will need picc line once blood cultures are final. Uses mohamud lift at facility. DC plan: return to [facility], when medically ready. [facility] tasked to send remaining updates to the facility. Messaged ID STATOR WINDER D. Signs requesting opat when ready. Discharge Milestones and Delays Expected Date/Time: 02/26/[address] discharge order Complete med reconciliation Case mgmt discharge readiness Clinical Stability Diagnsotic Workup Expected Discharge History Expected Date/Time Set By Reviewed At 02/26/2024 Sejal Thomas RN 02/25/2024 4:02 PM 02/24 Need opat and confirmation from [facility] they take take IV Invanze. Patient is a retirement bed hold." 02/24/2024 Janie Finch MD 02/21/2024 9:39 PM 02/24/2024 Janie Finch MD 02/21/2024 6:09 PM Length of Stay (Days): 4 GMLOS: 5.1 [facility] 02-24-2024 Note Hospitalist Progress Note 02/24/2024 Subjective: Admit Date: 02/21/2024 PCP: Lucy Quick Room#: [id number] A BRIEF HOSPITAL COURSE: Kimberly is a [...] History: Diagnosis Date CHF (congestive heart failure) ([facility]) COPD (chronic obstructive pulmonary disease) ([facility]) Diabetes mellitus ([facility]) LABS: CBC: Recent Labs 02/22/24 0407 02/23/24 0322 02/24/24 0220 WBC 9.6 7.5 8.3 RBC 3.36* 3.08* 3.03* HGB 9.6* 8.7* 8.6* HCT 30.2* 28.1* 27.7* MCV 89.9 91.2 91.4 RDW 15.6* 15.6* 15.1* PLT 195 182 196 BMP: Recent Labs 02/22/24 04002/23/24 0322 02/24/24 0220 NA 132* 135 135 K 3.9 3.7 3.4* CL 99 101 102 CO2 29 28 30 BUN 32* 35* 33* CREATININE 1.17* 1.62* 1.42* GLUCOSE 142* 111* 105* CALCIUM 8.2* 8.1* 8.5 ANIONGAP 5 6 3 LIVER PROFILE: Recent Labs 02/22/24 0407 02/23/24 0322 02/24/24 0220 AST 21 23 27 ALT 18 20 24 BILITOT 0.6 0.4 0.3 ALKPHOS 75 70 66 PROT 5.3* 5.1* 5.2* PT/INR: Recent Labs 02/21/24 1124 PROTIME 10.5 INR 1.0 CARDIAC ENZYMES: Recent Labs 02/21/24 1124 02/21/24 1535 02/21/242024 TROPONINI 0.047* 0.049* 0.052* Procalcitonin: Lab Results Component Value Date PROCAL 0.41 (H) 02/22/2024 COVID-19 PCR: No results for input(s): "COVID19" in the last 72 hours. Objective: Vitals: BP 154/68 (BP Location: Right arm, Patient Position: Lying) Pulse 79 Temp 36.9 ?C (98.5 ?F) (Temporal) Resp 16 Ht 5' 5" (1.651 m) Wt 250 lb 1.6 oz [...] and 1x CAT3) (more content not included)... [facility] 02-24-[address] [facility] - Infectious Diseases Attending Progress [...] and nursing note reviewed. Labs: Recent Labs 02/22/24 0407 02/23/2432102/24/24 0220 NA 132* 135 135 K 3.9 3.7 3.4* CL 99 101 102 CO2 29 28 30 BUN 32* 35* 33* CREATININE 1.17* 1.62* 1.42* GLUCOSE 142* 111* 105* CALCIUM 8.2* 8.1* 8.5 PROT 5.3* 5.1* 5.2* BILITOT 0.6 0.4 0.3 ALKPHOS 75 70 66 AST 21 23 27 ALT 18 20 24 PROCAL 0.41* -- -- Recent Labs 02/21/24 1124 02/22/24 0407 02/23/2432102/24/24 0220 WBC 15.2* 9.6 7.5 8.3 [...] air cells bilaterally. No acute osseous findings. " Impression: 1. No PE identified. PE cannot [...] and instructing the patient on self care. [facility] 02-23-2024 Note Hospitalist Progress Note 02/23/2024 Subjective: Admit [...] History: Diagnosis Date CHF (congestive heart failure) ([facility]) COPD (chronic obstructive pulmonary disease) ([facility]) Diabetes mellitus ([facility]) LABS: CBC: Recent Labs 02/21/24 1124 02/22/24 0407 02/23/24 032 WBC 15.2* 9.6 7.5 RBC 3.51* 3.36* 3.08* HGB 10.0* 9.6* 8.7* HCT 31.3* 30.2* 28.1* MCV 89.2 89.9 91.2 RDW 15.8* 15.6* 15.6* PLT 201 195 182 BMP: Recent Labs 02/21/24 1124 02/22/24 0407 02/23/24 032 NA 134* 132* 135 K 4.3 3.9 3.7 CL 98 99 101 CO2 32* 29 28 BUN 44* 32* 35* CREATININE 1.29* 1.17* 1.62* GLUCOSE 148* 142* 111* CALCIUM 8.7 8.2* 8.1* ANIONGAP 4 5 6 LIVER PROFILE: Recent Labs 02/21/24 1124 02/22/24 0407 02/23/24 032 AST 21 21 23 ALT 19 18 20 BILITOT 0.6 0.6 0.4 ALKPHOS 78 75 70 PROT 5.7* 5.3* 5.1* PT/INR: Recent Labs 02/21/241123 PROTIME 10.5 INR 1.0 CARDIAC ENZYMES: Recent Labs 02/21/24 1124 02/21/24 1535 02/21/242024 TROPONINI 0.047* 0.049* 0.052* Procalcitonin: Lab Results Component Value Date PROCAL 0.41 (H) 02/22/2024 COVID-19 PCR: No results for input(s): "COVID19" in the last 72 hours. Objective: Vitals: BP 155/80 Pulse 56 Temp 36.2 ?C (97.2 ?F) (Temporal) Resp 18 Ht 5' 5" (1.651 m) Wt 246 lb 4.8 oz [...] need Endocrinology evaluation, ID and Geriatrics following, PT/OT/AVIATION MAINTENANCE TECHNICIAN, follow up labs, continue wound care, [...] : 48 minute (more content not included)... [facility] 02-22-2024 Consult note Associated Order (s): IP WOUND CARE NURSE CONSULT TO EVAL Images from the original note were not included. [facility] Wound Care CONSULT Note Kimberly Patel [...] Low air loss mattress at [facility] .patient denies being able to make independent body position changes. Does not have good appetite. No cough. Can not lay flat HOB has to be up more than 30 degrees. PAST MEDICAL HISTORY Active Ambulatory Problems Diagnosis Date Noted Physical debility 10/12/2021 Other hyperlipidemia 10/12/2021 CAD (coronary artery disease) 10/12/2021 Primary hypertension 10/12/2021 Neuropathy 10/12/2021 Bacteremia 10/12/2021 Acute kidney injury superimposed on CKD (HCC) (HCC) 10/12/2021 Type 2 diabetes mellitus with diabetic polyneuropathy, with long-term current use of insulin ([facility]) 10/12/2021 Bullous pemphigoid 11/17/2022 Acute on chronic diastolic congestive heart failure ([facility]) 08/22/2022 Bipolar disorder, most recent episode depressed ([facility]) ([facility]) 02/22/2024 Resolved Ambulatory Problems Diagnosis Date Noted No Resolved Ambulatory Problems Past Medical History: Diagnosis Date CHF (congestive heart failure) ([facility]) COPD (chronic obstructive pulmonary disease) ([facility]) Diabetes mellitus ([facility]) PAST SURGICAL HISTORY Past Surgical History: Procedure [...] (fourteen) days. ergocalciferol (Vitamin D-2) 1.25 MG (95185 UT) capsule Take 1.25 mg by mouth [...] (97.9 F) (Temporal) Resp 16 Ht 5' 5" (1.651 m) Wt 293 lb 3.4 oz [...] 1.0 02/21/2024 Prealbumin: No results found for: "PREALBUMIN" Albumin:No components found for: LABALBU Sed Rate:No [...] Care to follow Please follow up at [facility] after hospital discharge. Thank you for the [...] from the original note were not included. [facility] - Infectious Diseases Attending Consult Note [...] History: Diagnosis Date CHF (congestive heart failure) ([facility]) COPD (chronic obstructive pulmonary disease) ([facility]/HCC) Diabetes mellitus ([facility]/HCC) Past Surgical History: Past Surgical History: Procedure [...] -- -- -- -- 1.651 m (5' 5") -- 02/22/24 0816 160/79 36.8 C (98.2 F) Temporal 105 17 100 % -- -- 02/22/2412 -- -- -- -- -- -- -- 133 kg (293 lb 3.4 oz) 02/22/24440 149/57 36.5 C (97.7 F) Temporal 105 19 100 % -- -- 02/22/24440 -- -- -- 105 -- -- -- -- 02/21/24 2130 130/62 36.5 C (97.7 F) Temporal 100 18 96 % -- -- 02/21/242010 122/80 -- -- 104 16 100 % [...] Sensation is intact. Motor: No tremor. Coordination: Ismsut-Zjtj-Uedekf Test normal. Psychiatric: Attention and Perception: Perception normal. Speech: Speech is delayed. Labs: Recent Labs 02/21/24 1124 02/22/24 0407 NA 134* 132* K 4.3 3.9 CL 98 99 CO2 32* 29 BUN 44* 32* CREATININE 1.29* 1.17* GLUCOSE 148* 142* CALCIUM 8.7 8.2* PROT 5.7* 5.3* BILITOT 0.6 0.6 ALKPHOS 78 75 AST 21 21 ALT 19 18 PROCAL -- 0.41* Recent Labs 02/21/24 1124 02/22/24 0407 WBC 15.2* 9.6 HGB 10.0* 9.6* HCT 31.3* 30.2* PLT 201 195 LYMPHOPCT 6.3* 9.5* MONOPCT 8.3 8.8 BASOPCT 0.2 0.2 NEUTROABS 12.5* 7.5 Micro: No results for input(s): "COVID19" in the last 72 hours. 02/21/2024 1759 02/21/2024 1834 Urine culture [[id number]] Urine, Clean Catch In process Component Value No component results 02/21/2024 1135 02/21/2024 1628 COVID-19, Flu A/B, and RSV Combo [[id number]] Swab from Nasopharynx Final result Component Value SARS-CoV-2 Not Detected Respiratory Syncytial Virus Not Detected Influenza A Not Detected Influenza B Not Detected 02/21/2024 1124 02/22/2024 0622 Blood culture Site #1 - Suspected Infection [[id number]] (Abnormal) Blood, Venous Preliminary result Component Value Blood Culture Gram-negative bacilli Panic P 02/21/2024 1124 02/22/2024 0622 Blood Culture Identification - Anaerobic [[id number]] (Abnormal) Blood, Venous Final result Component Value Escherichia coli Detected Abnormal CTX-M (ESBL gene) Detected Abnormal Lines: PIV Radiography/Echo/Other: Procedure Component Value Units Date/Time US renal complete [[id number]] Resulted: 02/22/24 1212 Order Status: Sent Updated: 02/22/24 1237 CTA chest angiogram w and/or wo IV contrast [[id number]] Collected: 02/21/24 1348 Order Status: Completed Updated: 02/21/24 1357 Narrative: Patient Name: KIMBERLY PATEL : 1955 [facility]#: [id number] Exam Date/Time: 02/21/2024 13:41 Procedure: CT CHEST [...] 1:56 PM EDT XR chest 1 view [[id number]] Collected: 02/21/24 1219 Order Status: Completed Updated: 02/21/24 1220 Narrative: Patient Name: KIMBERLY PATEL : 1955 Exam Date/Time: 02/21/2024 12:03 Procedure: XR CHEST [...] PM EDT CT head wo IV contrast [[id number]] Collected: 02/21/24 1153 Order Status: Completed Updated: 02/21/24 1156 Narrative: Patient Name: KIMBERLY PATEL : 1955 [facility]#: [id number] Exam Date/Time: 02/21/2024 11:44 Procedure: CT HEAD [...] 02/21/2024 11:55 AM EDT Antimicrobials,Start/End Dates: Ceftr Erta 02/21- Impression: Severe sepsis (fever, tachycardia, [...] encounter. Associated Order(s): IP CONSULT TO GERIATRICS [facility] Geriatric Medicine Inpatient Consult Service Admission Date: [...] her recent symptoms. Discussed with bedside nursing program coordinator, they were able to change her this [...] 0 Conversation with caregiver: daughter. Alexandro Cote [phone] -states that patient experiences similar symptoms with UTI/blood stream infections -has had hallucinations with infections, but doesn't usually seem to distressing/disturbing -from mental health, at her baseline she is "good" - states she plays on her phone, doesn't do a lot of socializing, doesn't go down for activities, doesn't like the [employer] lift. Does return to baseline in between -[facility] [place] - little over a year, doing ok there -no recent medication changes -does have bullous pemphigoid, goes to [employer] [facility] and has been much better controlled [...] IVPB Mini-Bag Plus, 1,000 mg, IntraVENous, q24h, Calre Del Cid MD, Stopped at 02/22/24 1103 [...] History: Diagnosis Date CHF (congestive heart failure) ([facility]) COPD (chronic obstructive pulmonary disease) ([facility]) Diabetes mellitus ([facility]) Past Surgical History: Procedure Laterality Date CHOLECYSTECTOMY [...] (97.6 F) (Temporal) Resp 18 Ht 5' 5" (1.651 m) Wt 293 lb 3.4 oz [...] TSH 1.267 02/22/2024 No components found for: "B12" No results found for: "VITD25" Reviewed: medication list, allergies, family history, social [...] 02/22/24 12:31 PM documented in this encounter [facility] 02-22-2024 Note Referral placed to kris kimbrough back to [facility] per [facility] request. Await review and response regarding ability to accept. TCC notified. [facility] 02-21-2024 Emergency department Note This RN spoke with patient at this time. Patient educated on the in and out of confusion that she has experienced and the results of UA. Patient educated that physician aware that she would like to speak with them. Patient agrees to stay at this time. Anoop Osborne RN 02/21/242113 Upon this RN going to patient room to assist on getting ready for transport, patient began speaking incomprehensible wording. Patient not making sense to this RN. Patient baseline is A&Ox3. Patient asked this RN to "Shut the front door as you come in to the barn". ED physician made aware, as well as [...] Sensation is intact. Motor: No tremor. Coordination: Jziovw-Sbmb-Sjbfdw Test normal. Psychiatric: Attention and Perception: Perception [...] Abnormal Glucose 150 (*) Narrative: Performed by: [facility], [address] [place] [address] CLIA ID: [id number] POCT VENOUS BLOOD GAS UNSOLICITED RESULTS - Abnormal pH, Venous 7.363 pCO2, Venous 59.7 (*) pO2, Venous 34.8 HCO3, Venous 33.9 (*) Base Excess, Venous 4.7 (*) SO2, Venous 62.6 FIO2 Narrative: Performed by: [facility], [address] [place] [address] CLIA ID: [id number] PROTHROMBIN TIME - Normal PROTHROMBIN TIME 10.5 [...] Culture. Procedure Abnormality Status --------- ------ Complete Urinalysis[[id number]] Please view results for these tests on the individual orders. BLOOD GAS, VENOUS COMPLETE URINALYSIS TROPONIN I TROPONIN I Medications ordered: Medications cefTRIAXone (Rocephin) 2,000 mg in sodium chloride 0.9 % 50 mL IVPB Mini-Bag Plus (2,000 mg IntraVENous New Bag 02/21/24 2024) sodium chloride 0.9 % bolus 500 mL [...] 03:41:22 PM PATIENT REFERRED TO: Lucy Quick [address] [facility] [address] [facility] [phone] Call in 1 day Janie Bradley DO [address] [facility] [place] [address] [facility] [id number] Call in 1 day I prescribed: New [...] MD (electronically signed) Serge Stewart MD 02/21/24 2971 Patient seen and dispositioned by day physician [...] further management and treatment. Janie Finch MD 02/21/241810 [facility] sends patient by ambulance due to mental status change and fever of 107F. Patient was given PO Tylenol 1000mg. documented in this encounter [facility] 02-21-2024 Note Attending History an d Physical [...] 0.047* 0.049* Procalcitonin: No results found for: "PROCAL" Urine Culture: No results found for this or any previous visit. COVID-19 PCR: No results for input(s): "COVID19" in the last 72 hours. I reviewed: [...] follow up cx's, prn seroquel, Geriatrics evaluation, PT/OT/AVIATION MAINTENANCE TECHNICIAN, I/Os and daily weights, oxgyen, aerosols. review home meds and continue as appropriate, oxygen, discharge plannin (more content not included)... [facility] 02-21-2024 History and physical note Images [...] History: Diagnosis Date CHF (congestive heart failure) ([facility]) COPD (chronic obstructive pulmonary disease) ([facility]) Diabetes mellitus ([facility]) Past Surgical History: Past Surgical History: Procedure [...] 0.047* 0.049* Procalcitonin: No results found for: "PROCAL" Urine Culture: No results found for this or any previous visit. COVID-19 PCR: No results for input(s): "COVID19" in the last 72 hours. I reviewed: [...] follow up cx's, prn seroquel, Geriatrics evaluation, PT/OT/AVIATION MAINTENANCE TECHNICIAN, I/Os and daily weights, oxgyen, aerosols. review home meds and continue as appropriate, oxygen, discharge planning, see admission orders. - am labs, replace lytes prn - PT/OT/CM/SW - delirium precautions: increase activity - DVT prophylaxis: enoxaparin and encourage ambulation Advance Directive: No Order Anticipated Discharge - Date - 4/ - Location - Home with Home Health [...] Alexandro Cote Mobile Relation: Daughter Preferred language: Nigerian Food Concession Manager needed? No SHMUEL TREVINO MD Division of Hospitalist Medicine [facility] documented in this encounter [facility] 08-11-2023 Note HNO ID: [id number] Author: Note, Interface Service: ? Author Type: ? Type: Progress Notes Filed: 08/11/2023 5:09 AM Note Text: Epic Scheduled Downtime: 08/11/2023 1:00:00 AM to 08/11/2023 1:28:00 AM [facility] 05-25-2023 Miscellaneous Notes Called and left VM regarding consult documented in this encounter [facility] 05-10-2023 Miscellaneous Notes Left voicemail advising patient to have new provider to send Rx to pharmacy. DARIEL ZHONG LPN May 10, 2023 4:27 PM documented in this encounter [facility] 04-26-2023 Miscellaneous Notes Pt has new pcp. Agustin Barahona APRN.FINANCIAL DEVELOPER Deny has new pcp Vy Meek LPN documented in this encounter [facility] 03-09-2023 Miscellaneous Notes The [facility] has reached out to the patient with no response. Therefore, this is considered a deferral of [facility] services at this time. documented in this encounter [facility] 02-22-2023 Miscellaneous Notes Patient was discharged from [facility] 01-17-23 with an order to schedule with the Heart Failure Clinic. The Clinic reached out by phone with no contact. A letter was mailed to the patient asking them to contact the Clinic to schedule an appointment. documented in this encounter [facility] 02-15-2023 Note HNO ID: [id number] Author: Dianna Zuniga RN Service: Nursing Author Type: Registered Nurse Type: Progress Notes Filed: 02/15/2023 4:32 PM Note Text: Report called to Yessica @ [facility]. [facility] 02-15-2023 Note [facility] 02-14-2023 Note [facility] 02-13-2023 Note [facility] 02-13-2023 Note [facility] 02-12-2023 Note [facility] 02-12-2023 Note [facility] 02-11-2023 History of Past i llness Narrative [...] of this encounter (statuses as of 02/22/2023) [facility]04-16-2023 History of Past illness Narrative* Problem Noted [...] of this encounter (statuses as of 03/02/2023) [facility] History of Past illness Narrative* Problem Noted [...] of this encounter (statuses as of 03/09/2023) [facility] History of Past illness Narrative* Problem Noted [...] of this encounter (statuses as of 04/27/2023) [facility] History of Past illness Narrative* Problem Noted [...] of this encounter (statuses as of 05/10/2023) [facility] History of Past illness Narrative* Problem Noted [...] of this encounter (statuses as of 05/25/2023) [facility]04-11-2023 [facility]04-11-2023 History of Present illness Narrative* Saniya Coleman RN - 02/06/2023 2:01 PM EDT 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 Patient is now a permanent resident under the care of facility physician Dr. Lucy Quick. [facility] chart updated to reflect this change. Saniya Coleman RN February 06, 2023 2:03 PM [facility]2023 History of Present illness Narrative* Vy Meek LPN - 01/29/2023 3:41 PM EDT ED Follow Up: Patient discharged from [facility] ED on 01/28/23. Left message for patient to call office to schedule ed follow up appointment. Vy Meek LPN [facility] Miscellaneous Notes* Telephone Encounter - Merissa Browne [...] accordingly. Merissa Browne LPN [facility] Miscellaneous Notes* Telephone Encounter - Solange Arenas RN - 01/17/2023 1:32 PM EDT Patient was discharged from [facility] on 01/16/23 with an order to schedule with the Heart Failure Clinic. However, the patient was then immediately admitted to a senior care facility. A letter was mailed to the patient asking her to contact the Clinic upon discharge from the facility. [facility]03-21-2023 [facility]03-20-2023 [facility]03-20-2023 [facility]03-20-2023 History of Present illness Narrative* Saniya Coleman RN - 01/15/2023 3:15 PM EDT [facility] Transitional Care Management (TCM) Inpatient Patient Visit/Outreach Provider Action/FYI Will be discharged back to [facility] at discharge Anticipate patient will be permanent resident Saniya Coleman RN January 15, 2023 3:18 PM Patient Admitted To [facility] on 01/12/2023 Patient admitted for CHF Contact [...] discharge. We have your contact number as [phone] , is this the best number to contact you? Yes Address: [address] [place] [address] , is this where you will be staying after discharge? No, going to [facility] Do you give us permission to speak to anyone else if you are unavailable to speak to us? Yes Alexandro Cote (daughter) [phone] Saniya Coleman RN January 15, 2023 3:17 PM documented in this encounterMedina Hospital03-20-2023 Miscellaneous Notes* Telephone Encounter - Kerry Rogers - 01/15/2023 11:18 AM EDT The patient was discharged from [facility] 10-28-22 with an order to schedule with the Heart Failure Clinic. The Clinic reached out to the patient with no response. Therefore, this is considered a deferralof the Clinic's services at this time. documented in this encounterMedina Hospital03-19-2023 [facility]03-18-2023 [facility]03-14-2023 Miscellaneous Notes * Telephone Encounter - [...] Agustin Barahona -07/05/22 Virtual with Agustin Barahona-06/23/22 [facility]. Next appointment: None . Requested Prescriptions Pending Prescriptions Disp Refills pregabalin (LYRICA) 75 mg capsule [Pharmacy Med Name: Pregabalin 75mg Capsule] 60 capsule 5 Sig: Take 1 capsule by mouth twice daily Patient Phone numbers: [phone] (home) Request is for script(s) to be escript to pharmacy. Kamille Hall LPN documented in this encounterMedina Hospital03-10-2023 Miscellaneous Notes* Telephone Encounter - Sheree Kan [...] Prescription(s) as above. Please process accordingly. Sheree Kan, RN documented in this encounterMedina Hospital02-26-2023 Miscellaneous Notes* Telephone Encounter - Agustin Barahona APRN.CNP - 12/24/2022 9:30 PM EST 30 tablets with 3 refills sent. Pt will need to be seen in person to continue to get refills. Agustin Barahona APRN.CNP documented in this encounterMedina Hospital02-21-2023 [facility]02-21-2023 Miscellaneous Notes* Telephone Encounter - Kerry Rogers - 12/19/2022 10:53 AM EST Patient was discharged from [facility] 10-28-22 with an order to schedule with the Heart Failure Clinic. The Clinic reached out by phone with no contact. A letter was mailed to the patient asking them to contact the Clinic to schedule an appointment. documented in this encounterMedina Hospital02-09-2023 History of Present illness Narrative* ROMEL Robb [...] 07, 2022 TIME: 11:54 AM CONTACT #: [phone] documented in this encounterMedina Hospital02-07-2023 [facility]02-01-2023 Miscellaneous Notes* Telephone Encounter - Tea [...] FOR ITCHING/RASH (FOR ITCHING). Patient Phone numbers: [phone] (home) Request is for script(s) to be escript to pharmacy. Tea Riggs LPN documented in this encounterMedina Hospital01-23-2023 Miscellaneous Notes* Telephone Encounter - Kerry Rogers - 11/20/2022 9:26 AM EST Patient was discharged from [facility] 11-17-22 with an order to schedule with the Heart Failure Clinic. However, the patient was then immediately admitted to a senior care facility. A letter was mailedto the patient asking them to contact the Clinic upon discharge from the facility. Kerry Rogers documented in this encounterMedina Hospital01-23-2023 [facility]01-23-2023 History of Present illness Narrative* Saniya Coleman RN - 11/20/2022 7:24 AM EST TRANSITION CARE MANAGEMENT (TCM) /DISCHARGE TO POST ACUTE FACILITY POST ACUTE TRANSFER SUMMARY: -Pt discharged from [facility] on 11/17/2022 -Post Acute Facility Admitted to [facility] -Admitted for: Weakness Office PCC to follow at discharge Saniya Coleman RN November 20, 2022 7:26 AM documented in this encounterMedina Hospital01-20-2023 [facility]01-20-2023 [facility]01-19-2023 [facility]01-19-2023 NoteHNO ID: [id number] Author: Lindsay Rod RN Service: Nursing Author Type: Registered Nurse Type: Nursing Progress Note Filed: 11/16/2022 4:17 AM Note Text: Patient states she does not want to be woke up during the night.[facility]01-18-2023 [facility]01-17-2023 [facility]01-17-2023 [facility]01-17-2023 Note [facility]01-16-2023 [facility] 11-12-2022 [facility]01-14-2023 [facility]01-12-2023 [facility]01-12-2023 Miscellaneous Notes * Telephone Encounter - Davis Loving MA - 11/09/2022 4:06 PM EST Patient advised of message. Davis Loving MA * Telephone Encounter - Agustin Barahona APRN.CNP - 11/09/2022 3:44 PM EST Agreeable to follow pt for home care. Agustin Barahona APRN.CNP * Telephone Encounter - Vanessa Patel - 11/09/2022 11:26 AM EST Chica from [facility] called ([phone]) stating pt is being discharged from a skilled facility and needs verbal orders. Requesting home care senior care, physical therapy and occupational therapy. Please advise. Vanessa Patel documented in this encounterMedina Hospital01-12-2023 [facility]01-12-2023 History of Present illness Narrative* Agustin [...] - ERNST Provider Action/FYI: Patient discharged from [facility] on 11/08/22. Patient declines reviewing medications. States that she is not aware of needing any refills or medication changes. Patient reports that she is unable to stand and that she is very weak. Patient noted to have Pressure Injury on admission. Patient reports that this is improving however she has multiple blisters. Patient has referral for [facility] SN, PT, OT. Can an order for [...] results to SN. SUMMARY: Pt discharged from [facility] on 11/08/22. Admitted for: CHF, UTI Contact made with patient: Yes Hi my name is Krupa Aparicio RN and I am calling from the [facility] on behalf of your PCP, Agustin Barahona APRN.FINANCIAL DEVELOPER I understand you were recently in the [...] like to speak with a social work sales team leader to help give you support for any [...] I will send your request to a utility arborist who will contact and assist you with [...] possible). Krupa Aparicio RN documented in this encounterMedina Hospital01-05-2023 Miscellaneous Notes* Telephone Encounter - Jenna Gudino [...] FOR ITCHING/RASH (FOR ITCHING). Patient Phone numbers: [phone] (home) Request is for script(s) to be escript to pharmacy. Jenna Gudino MA documented in this encounterMedina Hospital01-03-2023 [facility]01-03-2023 Miscellaneous Notes* Telephone Encounter - Kerry Rogers - 10/31/2022 9:25 AM EST Patient was discharged from [facility] 10-28-22 with an order to schedule with the Heart Failure Clinic. However, the patient was then immediately admitted to a senior care facility. A letter was mailed to the patient asking them to contact the Clinic upon discharge from the facility. Kerry Rogers documented in this encounterMedina Hospital12-30-2022 [facility]12-30-2022 NoteHNO ID: [id number] Author: Evelia Asher RN Service: Nursing Author Type: Registered Nurse Type: Nursing Progress Note Filed: 10/27/2022 4:14 AM Note Text: Nurse attempted to draw labs. Patient refused. LIP notified. Will continue to monitor.[facility]12-29-2022 [facility]12-28-2022 [facility]12-27-2022 [facility]12-26-2022 [facility]12-25-2022 Note [facility]12-24-2022 [facility] 10-20-2022 [facility]12-22-2022 [facility]12-21-2022 [facility]12-21-2022 [facility]12-20-2022 [facility]12-20-2022 [facility]12-09-2022 Miscellaneous Notes* Telephone Encounter - Tea [...] FOR ITCHING/RASH (FOR ITCHING). Patient Phone numbers: [phone] (home) Request is for script(s) to be escript to pharmacy. Tea Riggs LPN documented in this encounterMedina Hospital12-09-2022 Miscellaneous Notes* Telephone Encounter - Jenna Gudino [...] by mouth every day Patient Phone numbers: [phone] (home) Request is for script(s) to be escript to pharmacy. Jenna Gudino MA documented in this encounterMedina Hospital12-07-2022 Miscellaneous Notes* Telephone Encounter - Arelis Harper - 10/04/2022 10:11 AM EST FMLA forms completed and emailed to daughter, Alexandro Cote at [email or web address]. Called and left message on Alexandro's phone regarding above. Mgraening * Telephone Encounter - Jenna Gudino MA - 10/03/2022 5:05 PM EST Papers were placed on Arelis desk because she does those.I will forward this to Arelis. Jenna Gudino MA * Telephone Encounter - Haley Cook - 10/03/2022 3:48 PM EST PT's daughter dropped off paperwork for FMLA. Put on [employer] desk. Please advise Haley Cook documented in this encounterMedina Hospital12-02-2022 [facility]12-02-2022 Instructions* Patient Instructions* Agustin Barahona APRN.CNP - 09/29/2022 8:32 AM EST 1-make apts with dermatology, urology, nephrology, cardiology and HF clinic. Keep these apts. documented in this encounterMedina Hospital12-02-2022 History of Present illness Narrative* Agustin Barahona APRN.CNP - 09/29/2022 8:00 AM EST AMBULATORY TELEPHONE VISIT Kimberly Bandar Patel has consented to this telephone encounter. [...] that her and her daughter have a "specific way" on how to get out of the house due to her lack of mobility. Patient states that no one from home care is reach out to her in regards to in-home therapy. Patient was inquiring about refills for doxycycline and steroids. These were prescribed by Dyllan Guillaume from [facility] for treatment of her bullous rash. [...] 782.1, ICD10: R21 -Educated patient to contact [facility] in regards to treatment for this [...] polyneuropathy, with long-term current use of insulin ([facility]) - ICD9: 250.60, 357.2, V58.67, ICD10: E11.42, Z79.4 -Patient endorses that her blood sugars have been a little elevated due to being on the steroids. But she is combining that with changing her mealtime insulin around. Patient denies needing any refills in regards to her diabetes medication at this time. 5. Acute on chronic diastolic CHF (congestive heart failure) ([facility]) - ICD9: 428.33, 428.0, ICD10: I50.33 -Educated [...] failure. 6. Chronic respiratory failure with hypoxia ([facility]) - ICD9: 518.83, 799.02, ICD10: J96.11 -Patient is still on 2 L of O2 per nasal cannula at home for this. Patient is stable on this. Total Time Spent: 25 minutes Agustin Barahona APRN.CNP documented in this encounterMedina Hospital12-01-2022 Miscellaneous Notes* Telephone Encounter - Anette Lopez [...] by mouth every day Patient Phone numbers: [phone] (home) Request is for script(s) to be escript to pharmacy. Kamille Hall LPN documented in this encounterMedina Hospital12-01-2022 Miscellaneous Notes* Telephone Encounter - Olga Salmon PA-C - 09/28/2022 9:12 AM EST Looks like she has established with a new PCP documented in this encounterMedina Hospital11-29-2022 NoteHNO ID: [id number] Author: Agustin Barahona APRN.HEATHER Service: ? Author Type: Nurse Practitioner Type: Progress Notes Filed: 10/02/2022 5:25 PM Note Text: Pt needs to establish with urology. Agustin Barahona APRN.[facility]ATHERN[facility]11-29-2022 History of Present illness Narrative* [...] this is a complex issue. Agustin Barahona APRN.CNP * Krupa Aparicio RN - 09/25/2022 4:30 [...] chart if unable to upload for the tactical debriefer. Patient to follow up with tactical debriefer 10/16/22. Patient continues to decline scheduling follow up appointment in the office or virtual until beginning of the year. Concerns: Area on her abdomen. Launch Check Out plan for next outreach: Will follow up in 2 weeks Signature Krupa Aparicio RN September 25, 2022 documented in this encounterMedina Hospital11-29-2022 [facility]11-28-2022 [facility]11-28-2022 [facility]11-28-2022 Miscellaneous Notes* Telephone Encounter - Agustin Barahona APRN.CNP - 09/25/2022 4:55 PM EST Pt needs to follow up with urology. Agustin Barahona APRN.HEATHER * Telephone Encounter - Krupa Aparicio RN - 09/25/2022 4:30 PM EST Patient phones requesting refills as follows: Last office visit 08/16/22 Requested Prescriptions Pending Prescriptions Disp Refills Methenamine Hippurate (HIPREX) 1 gram tablet 60 tablet 0 Sig: Take 1 tablet by mouth twice daily. Please review and advise. Krupa Aparicio RN documented in this encounterMedina Hospital11-21-2022 [facility]11-21-2022 [facility]11-18-2022 [facility]11-14-2022 Miscellaneous Notes* Telephone Encounter - Vickey Dumont MA - 09/11/2022 2:12 PM EST Per pts daughter the tactical debriefer already has the results. Closing encounter Vickey Dumont MA * Telephone Encounter - Vickey Dumont MA - 09/11/2022 2:12 PM EST ----- Message from Agutsin Barahona APRN.CNP sent at 09/08/2022 9:13 AM EST ----- Can we forward this result to her tactical debriefer to maximize her treatment? Thank you, Agustin Barahona APRN.FINANCIAL DEVELOPER documented in this encounterMedina Hospital11-11-2022 [facility]11-11-2022 [facility]11-11-2022 [facility]11-11-2022 History of Present illness Narrative* Krupa Aparicio RN - 09/08/2022 11:47 AM EST PRIMARY CARE COORDINATION QUICK NOTE Provider Action/FYI Patient identified by name and date . TC to patient and updated on Message from Agustin Rodriguez CNP. Patient verbalized understanding. Krupa Aparicio RN * Agustin Barhaona APRN.CNP - 09/08/2022 11:31 AM EST Pt can [...] how much insulin to give. Agustin Barahona APRN.FINANCIAL DEVELOPER * Krupa Apariico RN - 09/08/2022 11:03 AM EST TRANSITION [...] or increased dyspnea. Concerns: Cold, blood sugars Launch Check Out plan for next outreach: Will follow up in 1 week Signature Krupa Aparicio RN September 08, 2022 documented in this encounterMedina Hospital11-11-2022 Miscellaneous Notes* Telephone Encounter - Jenna Gudino [...] FOR ITCHING/RASH (FOR ITCHING). Patient Phone numbers: [phone] (home) Request is for script(s) to be escript to pharmacy. Jenna Gudino MA documented in this encounterMedina Hospital11-08-2022 [facility]11-04-2022 Miscellaneous Notes* Telephone Encounter - Nanda Sampson PA-C - 09/01/2022 4:39 PM EDT Patient can use this medication and then if needed we can change, since she already picked up no reason to change now. NANDA SAMPSON PA-C * Telephone Encounter - Val eBe MA - 09/01/2022 3:14 PM EDT Called [...] which makes the medication $25.83. Agustin Barahona APRN.CNP * Telephone Encounter - Kamille Hall LPN - 08/31/2022 1:28 PM EDT Pharmacy comment: Alternative Requested:NON FORMULARY PLEASE USE FORMULARY PRODUCT. Please advise.Kamille Hall LPN documented in this encounterMedina Hospital11-04-2022 [facility]11-03-2022 [facility]11-03-2022 [facility]11-03-2022 [facility]11-03-2022 Miscellaneous Notes* Telephone Encounter - Alejo Andersen - 08/31/2022 9:41 AM EDT [facility] f/u-- no answer, lvm w/ appt info and sent reminder ltr to pt Alejo Andersen August 31, 2022 9:41 AM * Telephone Encounter - Tea Reis APRN.CNP - 08/30/2022 10:25 PM EDT Please make a hospital follow up appointment to be seen in 6-[address] Silva or STATOR WINDER for chf Thank you Tea Reis APRN.CNP documented in this encounterMedina Hospital11-02-2022 [facility]11-02-2022 Nurse Note* Porsha Mjeia RN - 08/30/2022 2:46 PM EDT Heart [...] was to re- establish the patientwith the [facility]. Kimberly reported that she does not have [...] No Cough Yes - attributes this to "cold". Reported this to be a dry cough Do you know who to contact if you have weight gain or symptoms? - yes, reported has office number to both the [facility] and Dr. Silva (cardiology) Do you know [...] reported that she is out of her [place] which was prescribed a while back by pain clinic. Kimberly reported that she does have an referral to this department, "but cannot schedule" secondary to being reliant on her daughter to take her to multiple office visits Have you been taking your medications as directed? Yes Have you been maintaining a 3297-8929 mg of sodium diet? No - Kimberly reported that she is on a fixedbudget and obtains food stamps. Because of this, she cannot afford the lower sodium products in the[employer] markets. She has been reliant on fast [...] recommendation made for her to contact her community development officer to reschedule. She is waiting on her [...] 30, 2022 2:58 PM documented in this encounterMedina Hospital11-01-2022 [facility]11-01-2022 [facility]11-01-2022 Miscellaneous Notes * Telephone Encounter - Sourav Hill - 08/29/2022 11:39 AM EDT Referral was submitted for patient via [facility] portal to: PAIN MANAGEMENT Confirmation number: [id number] Sourav Hill documented in this encounterMedina Hospital11-01-2022 Miscellaneous Notes* Telephone Encounter - Mary Farr - 08/29/2022 11:01 AM EDT Patient/Patient's Pharmacy is requesting the following refill. Patient's last appointment: with Agustin Barahona, FINANCIAL DEVELOPER was 08/16/22. Next appointment: NONE. Requested Prescriptions Pending Prescriptions Disp Refills furosemide (LASIX) 20 mg tablet [Pharmacy Med Name: Furosemide 20mg Tablet] 30 tablet 11 Sig: Take 1 tablet by mouth every day Patient Phone numbers: [phone] (home) Request is for script(s) to be escript to pharmacy. Mary Farr documented in this encounterMedina Hospital10-31-2022 NoteHNO ID: [id number] Author: Agustin Barahona APRN.CNP Service: ? Author Type: Nurse Practitioner Type: Progress Notes Filed: 08/28/2022 9:53 PM Note Text: Noted. Thank you. I will place a referral for pain management then. Agustin Barahona APRN.CNPNorthern [facility]10-31-2022 History of Present illness Narrative* [...] if she is agreeable to this. Agustin A Rawleigh, GUM MIXER.FINANCIAL DEVELOPER * Krupa Aparicio RN - 08/28/2022 9:33 AM EDT TCM Home Visit Referral Source of Stratification: [facility] Hospital Admission Status: Discharged Readmission Risk Score: 49 JOHNNY Score: 25 Patient meets program referral criteria: Yes Program referral criteria met: - Readmission risk score 40% or greater Patient qualifies for High Risk TCM Home Visit. Discussed High Risk TCM Home Visit Program with patient: Patient - Does not accept due to:Patient Declined Preferred contact number: [phone] Is patient staying somewhere other than the listed home address: No Dialysis Patient: No Krupa Aparicio RN August 28, 2022 9:34 AM TRANSITIONAL CARE MANAGEMENT (TCM) COMMUNITY MONITORING PROGRAM - ERNST Provider Action/FYI: Patient declines HRTIC program. Patient [...] Krupa Aparicio RN SUMMARY: Pt discharged from [facility] on 08/27/22. Admitted for: CHF Contact [...] she was ready. Encouraged patient to call ombudsman to report. Patient states that her daughter is handling that. Patient reports that she has 2 sutures learning support aide from biopsy site. CHF: Patient is unable [...] RN and I am calling from the [facility] on behalf of your PCP, Agustin Barahona APRN.FINANCIAL DEVELOPER I understand you were recently in the [...] like to speak with a social work sales team leader to help give you support for any [...] I will send your request to a utility arborist who will contact and assist you with [...] the way if possible). documented in this encounterMedina Hospital10-31-2022 [facility]10[facility]31[facility]20[facility]10[facility]31-2022 [facility]10-31-2022 Miscellaneous Notes* Telephone Encounter - Sourav Hill - 08/28/2022 8:54 AM EDT Patient's daughter Alexandro Cote left . Patient last saw Agustin Jarettherrera on 08/16/22. (Alexandro's ph number [phone].) Alexandro said that patient was D/C from [...] 08/27/22. I called the pharmacy which is: [facility] [id number] [place] [facility] [address] [id number] [facility] - [phone] I spoke with pharmacist, he said script was received but was denied at first, he resubmitted and itwas accepted, he confirmed they have the medication in stock. I left for Alexandro, gave her update about the med being filled, told her I would make medical staffaware as well. Thank you, Sourav Hill documented in this encounterMedina Hospital10-30-2022 [facility]10-29-2022 [facility]10-29-2022 Miscellaneous Notes * Telephone Encounter - Martín Carbajal MD - 08/26/2022 5:51 PM EDT Got a call from patient's sister, who stated that patient is admitted at [facility], and was seen by Cardiology FELLER HAND today. The pat was under the impression [...] is the admitting hospitalist. documented in this encounterMedina Hospital10-29-2022 [facility]10-29[facility]2022 [facility]10-28-2022 [facility]10-28-2022 [facility]10-28-2022 [facility]10-28-2022 [facility]10-27-2022 Miscellaneous Notes* Telephone Encounter - Agustin [...] by mouth every day Patient Phone numbers: [phone] (home) Request is for script(s) to be escript to pharmacy. Mary Farr documented in this encounterMedina Hospital10-27-2022 [facility]10-27[facility]2022 [facility]10-26-2022 [facility]10-26-2022 [facility]10-26-2022 Miscellaneous Notes* Telephone Encounter - Navya Luna MA - 08/23/2022 2:26 PM EDT Notified to patient's daughter. She will call to reschedule at the office whenever she can. Navya Luna MA * Telephone Encounter - Navay Luna MA - 08/23/2022 1:19 PM EDT [...] advise Navya Luna MA documented in this encounterMedina Hospital10-26-2022 NoteHNO ID: [id number] Author: Toyin Marrero RN Service: ? Author Type: Registered Nurse Type: Nursing Progress Note Filed: 08/22/2022 11:06 PM Note Text: Pt NZ=503/46. Sound notified. Awaiting response.[facility] 08-21-2022 Miscellaneous Notes* Telephone Encounter - Val Bee MA - 08/21/2022 5:14 PM EDT Called and notified patient of verbal and patient voiced understanding of verbal. Val Bee MA * Telephone Encounter - Agustin Barahona APRN.FINANCIAL DEVELOPER - 08/21/2022 4:33 PM EDT I agree [...] in the out patient setting. Agustin Barahona APRN.FINANCIAL DEVELOPER * Telephone Encounter - Val Bee MA - 08/21/2022 4:02 PM EDT AGATHA Called and spoke to patient and she stated that she has bilateral leg swelling , is having someSOB, but states she is on oxygen at home, nausea, fatigue. She stated that she is going to go to the the ER when daughter gets off of work like her community development officer recommended, but is unsure what they will do. Val Bee MA * Telephone Encounter - Sourav Hill - 08/21/2022 1:05 PM EDT Patient left VM, she states that her community development officer told her she should "go to the ER" for the swelling in her legs. She is "concerned about overusing the ER" and would like to speak to our office about this matter. Patient's phone number is: [phone] Please advise. Thank you. Sourav Hill documented in this encounterMedina Hospital10-24-2022 Miscellaneous Notes* Telephone Encounter - Merissa Browne LPN - 08/21/2022 1:04 PM EDT Alexandro called in and was notified of 's response and recommendations.She voiced understanding and will take Kimberly back to ED. Merissa Browne LPN * Telephone Encounter - Sheree Kan RN - 08/21/2022 12:50 PM EDT Images from the original note were not included. Left message on daughterAlexandro's voicemail requesting a return call regarding Dr. [...] on08/29/22. Sheree Kan RN documented in this encounterMedina Hospital10-20-2022 [facility]10-20[facility] History of Present illness Narrative* [...] . Disha Camejo RN documented in this encounterMedina Hospital10-20-2022 History of Present illness Narrative* Disha [...] Dx and high utilization. documented in this encounterMedina Hospital10-19-2022 [facility]10[facility] Instructions* Patient Instructions* Agustin Barahona APRN.CNP - 2022 12:16 PM EDT 1-establish with nephrology today 2-establish with dermatology 3-follow up with cardiology 4-apply Bactroban to open areas 5-take keflex as prescribed 6-complete US of bilateral legs. 7-change dressing daily documented in this encounterMedina Hospital10-19-2022 Nurse Note* Val Bee MA - 2022 12:01 PM EDT Kimberly Patel is a 67 year old female who presents to follow up for Rash. Val Bee MA' documented in this encounterMedina Hospital10-19-2022 History of Present illness Narrative* Agustin Barahona APRN.FINANCIAL DEVELOPER - 2022 11:40 AM EDT Images from the original note were not included. [facility] 1944 [place] [address] Date of Evaluation: 2022 Patient Name: Kimberly [...] disease) (HCC) DM2 (diabetes mellitus, type 2) ([facility]) HTN (hypertension) Mixed hyperlipidemia Pneumonia due to [...] by mouth once daily. 90 Packet0 Insulin Washburn, Disposable, (PEN NEEDLE) 31 gauge x 3/16" Use as directed to inject insulin 5 [...] 2 Lancing Device (LANCING DEVICE WITH LANCETS) [facility] Use as directed to check blood sugar 3 times daily, insulin: yes, E11.9 1 Each 3 WALKER ROLLATOR SEAT WITH 6" WHEELS - RED Walker rollator with seat [...] 77 Temp (Src) 98.5 (Tympanic) Ht 5' 5" (1.65m) Wt 0 lb (0.0kg) SpO2 99% [...] polyneuropathy, with long-term current use of insulin ([facility]) - ICD9: 250.60, 357.2, V58.67, ICD10: E11.42, Z79.4 Controlled. - Continue current medications - BP goal of <130/80 - LDL goal of <100 6. Chronic heart failure with preserved ejection fraction (HFpEF) ([facility]) - ICD9: 428.9, ICD10: I50.32 -continue to follow with HF clinic -encouraged to follow up with cardiology 7. Recurrent UTI (urinary tract infection) - ICD9: 599.0, ICD10: N39.0 -pt scheduled to follow up with urology 8. Physical debility - ICD9: 799.3, ICD10: R53.81 -continue to follow with home care Agustin Barahona APRN.CNP Return in about 6 weeks (around 09/27/2022), or if symptoms worsen or fail to improve. Discussed the above with the patient using shared decision making. The patient is in agreement with the diagnostic and treatment plans. documented in this encounterMedina Hospital10-14-2022 Miscellaneous Notes* Telephone Encounter - Anette Lopez [...] BY MOUTH EVERY DAY Patient Phone numbers: [phone] (home) Request is for script(s) to be escript to pharmacy. Anette Lopez MA documented in this encounterMedina Hospital10-13-2022 Miscellaneous Notes* Telephone Encounter - Vickey Dumont [...] thank you! Luana Hilton documented in this encounterMedina Hospital10-10-2022 Miscellaneous Notes* Telephone Encounter - Haley Cook - 08/07/2022 8:53 AM EDT Patient/Patient's Pharmacy is requesting the following refill. Patient's last appointment: with Agustin Barahona FINANCIAL DEVELOPER was 07/05/2022. Pt refused appointment- says she will call to make one. Requested Prescriptions Pending Prescriptions Disp Refills pregabalin (LYRICA) 75 mg capsule [Pharmacy Med Name: Pregabalin 75mg Capsule] 180 capsule 3 Sig: Take 1 capsule by mouth twice daily. Patient Phone numbers: [phone] (home) Request is for script(s) to be escript to pharmacy. Haley Cook documented in this encounterMedina Hospital10-07-2022 Miscellaneous Notes* Telephone Encounter - Val Bee MA - 08/04/2022 2:10 PM EDT Left message for patient to call office to schedule/reschedule appointment. Val Bee MA * Telephone Encounter - Agustin Barahona APRN.CNP - 08/04/2022 7:48 AM EDT Please have pt schedule an apt to review results and discuss ER visit. Agustin Barahona APRN.HEATHER * Telephone Encounter - Sourav Hill - 08/02/2022 4:16 PM EDT Patient left , she was seen in the ED yesterday 08/01/22. Patient said she was told in the ED that her "blood work looks fine." Patient said no, her blood work "is not fine" - now that she has seen results. She said that some of the results are worse than how she had been trending recently. Patient asking for call back: Ph. [phone] Please advise. Thank you. Sourav Hill documented in this encounterMedina Hospital10-05-2022 Miscellaneous Notes* Telephone Encounter - Sneha Hager - 08/02/2022 2:20 PM EDT Patient contacted. Dr Enriquez is not available until sep 05. Patient declined to schedule She will call the [facility] at [phone] * Telephone Encounter - Alexandro Qureshi RN - 08/02/2022 12:02 PM EDT Patient calling in for ERFU appointment with Dr. Enriquez for her rash. Please call patient back. thanks documented in this encounterMedina Hospital10-05-2022 Miscellaneous Notes* Telephone Encounter - Sourav Hill [...] EDT Patient left VM. She stated her "rash is back," and that it is "pretty bad." She asked to be called back at: [phone] The reason I am sending this as a high priority telephone encounter is that I noted patient was seen in ED yesterday 08/01/22. Please advise. Thank you. Sourav Hill documented in this encounterMedina Hospital09-29-2022 Miscellaneous Notes* Telephone Encounter - Micheline Marroquin RN - 07/27/2022 2:11 PM EDT Pt called for 07/31/22 appointment confirmation and pt states she wishes to have appt be a telephonevisit with an RN rather than an in-person visit due to transportation issues and feeling unwell from frequent UTI's. Appt changed to telephone appt per pt request. documented in this encounterMedina Hospital09-22-2022 Miscellaneous Notes* Telephone Encounter - [place] RN - 07/20/2022 1:24 PM EDT Phone call placed to daughter regarding a change in scheduling with patient [facility] appt on 07/21/22. Patient was in ED yesterday for UTI. Daughter further states that her Lasix was recently increased by PCP. Encouraged follow up with PCP regarding any further changes with Lasix. Alexandro verbalized understanding. documented in this encounterMedina Hospital09-19-2022 Miscellaneous Notes* Telephone Encounter - Davis Loving MA - 07/17/2022 9:07 AM EDT Patient advised of message. Davis Loving MA * Telephone Encounter - Agustin Barahona APRN.FINANCIAL DEVELOPER - 07/17/2022 8:42 AM EDT Pt can stop taking fiber supplement if her diarrhea has worsened. If her rash is clearing up but not worsening this is okay. If it starts to worsen please let me know. Agustin Barahona APRN.HEATHER * Telephone Encounter - Davis Loving MA - 07/14/2022 3:25 PM EDT Patient states the Prednisone is working but not cleared all the way up. Please advise of message. Davis Loving MA * Telephone Encounter - Sourav Hill - 07/14/2022 3:02 PM EDT Patient left - last saw Agustin Barahona on 07/05/22. Patient said the medication that Agustin prescribed is helping, but that she is still not "completelyclear." She did not say the name of the medication. She is also having problems with diarrhea (I am not sure if she was associating this with the medication). She asked for a call back at phone: [phone] Please advise. Thank you. Sourav Hill documented in this encounterMedina Hospital09-19-2022 Miscellaneous Notes* Telephone Encounter - Merissa Browne [...] accordingly. Merissa Browne LPN documented in this encounterMedina Hospital09-09-2022 Miscellaneous Notes* Telephone Encounter - Agustin Barahona APRN.CNP - 07/07/2022 10:57 AM EDT Noted. Thank you for your exceptional care. Agustin Barahona APRN.FINANCIAL DEVELOPER * Telephone Encounter - Susan Cuello RPh [...] CareTeam. Thank you, Susan Cuello PharmD, BCACP documented in this encounterMedina Hospital09-08-2022 NoteHNO ID: [id number] Author: Susan Cuello RPh Service: ? Author [...] (Dr. Deng), 03/22/22 [facility] ([facility]), 04/13/22 New Provider: SETH Barahona, [...] SUBJECTIVE: Reports recently switched PCPs: now seeing [facility] Agustin Barahona Need Tradjenta refills sent to [facility] for pill pack Has not been checking [...] (HF sodium-free diet); does reportedly lightly salt romanian fries infrequently EXERCISE: walks around inside of [...] Sleep Apnea) Chf (Congestive Heart Failure) ([facility]) Type 2 Diabetes Mellitus With Diabetic Polyneuropathy, With Long-Term Current Use of Insulin ([facility]) Coronary Arteriosclerosis in [place] Artery Bipolar Disorder ([facility]) Mixed Hyperlipidemia Class 3 Severe Obesity With Serious Comorbidity and Body Mass Index (Bmi) of 45.0 to 49.9 in Adult ([facility]) Chronic Respiratory Failure With Hypoxia ([facility]) Chronic Obstructive Pulmonary Disease ([facility]) Physical Debility Recurrent Uti (Urinary Tract Infection) Primary Hypertension Stage 3b Chronic Kidney Disease ([facility]) Microalbuminuria Restrictive Lung Disease Chronic Heart Failure With Preserved Ejection Fraction (Hfpef) ([facility]) Requires Assistance With Activities of Daily Living (Adl) Weakness of Both Legs Ddd (Degenerative Disc Disease), Lumbar Spondylolisthesis of Lumbar Region Trigger Middle Finger of Right Hand History of Covid-19 Slow Transit Constipation PAST MEDICAL HISTORY Diagnosis Date Asthma CAD (coronary artery disease) s/p stent. last one >5 years ago CHF (congestive heart failure) ([facility]) COPD (chronic obstructive pulmonary disease) ([facility]) DM2 (diabetes mellitus, type 2) ([facility]) HTN (hypertension) Mixed hyperlipidemia Pneumonia due to COVID-19 virus 10/13/2020 ALLERGIES Allergen Reactions Dilaudid [Hydromorp* Vomiting Jardiance [Empaglif* Other: See Comments UTI (more content not included)...[facility]09-08-2022 History of Present illness Narrative* Susan Cuello, [facility] - 07/06/2022 11:30 AM EDT Primary Care Pharmacy Visit Patient consents to pharmacy consult agreement. CC (Reason for Consult): Type 2 diabetes mellitus with diabetic polyneuropathy, with long-term current use of insulin (HCC) - ICD9: 250.60, 357.2, V58.67, ICD10: E11.42, Z79.4 Goal: A1c <8% Last Collaborating Physician Visit: [facility] (Dr. Deng), 03/22/22 [facility] ([facility] Shea Childers), 04/13/22 New Provider: SETH Barahona, 07/05/22 Kimberly Patel is a 66 year old female presenting for follow up visit virtually. Patient consents [facility] collaborative practice agreement. . HPI: patient was [...] SUBJECTIVE: Reports recently switched PCPs: now seeing [facility] Agustin Barahona Need Tradjenta refills sent to [facility] for pill pack Has not been checking [...] (HF sodium-free diet); does reportedly lightly salt romanian fries infrequently EXERCISE: walks around inside of [...] Sleep Apnea) Chf (Congestive Heart Failure) ([facility]) Type 2 Diabetes Mellitus With Diabetic Polyneuropathy, With Long-Term Current Use of Insulin ([facility]) Coronary Arteriosclerosis in [place] Artery Bipolar Disorder ([facility]) Mixed Hyperlipidemia Class 3 Severe Obesity With Serious Comorbidity and Body Mass Index (Bmi) of 45.0 to 49.9 in Adult ([facility]) Chronic Respiratory Failure With Hypoxia ([facility]) Chronic Obstructive Pulmonary Disease (Hcc) Physical Debility Recurrent Uti (Urinary Tract Infection) Primary Hypertension Stage 3b Chronic Kidney Disease ([facility]) Microalbuminuria Restrictive Lung Disease Chronic Heart Failure With Preserved Ejection Fraction (Hfpef) ([facility]) Requires Assistance With Activities of Daily Living (Adl) Weakness of Both Legs Ddd (Degenerative Disc Disease), Lumbar Spondylolisthesis of Lumbar Region Trigger Middle Finger of Right Hand History of Covid-19 Slow Transit Constipation PAST MEDICAL HISTORY Diagnosis Date Asthma CAD (coronary artery disease) s/p stent. last one >5 years ago CHF (congestive heart failure) ([facility]) COPD (chronic obstructive pulmonary disease) ([facility]) DM2 (diabetes mellitus, type 2) ([facility]) HTN (hypertension) Mixed hyperlipidemia Pneumonia due to COVID-19 virus 10/13/2020 ALLERGIES Allergen Reactions Dilaudid [Hydromorp* Vomiting Jardiance [Empaglif* Other: See Comments UTI Metformin Diarrhea Morphine Vomiting Ondansetron Unknown Penicillins Rash Trulicity [Dulaglut* GI Upset Nausea/Vomiting MEDICATIONS/SUPPLIES: Pill bottles are not present. Adherence: denies missed doses. Organization System: [employer] Pill-pack for all oral meds (Divvy-Dose) Does the patient have diabetes supplies: Yes CGM = [employer] Gabrielle 2; has mobile fenr & reader device (via [facility] Supp[facility]; $0 co-pay) In current transition to new CGM supply company --> [employer]... Glucometer = One touch ultra 2 Lancing Device = Check [facility]'m Here pharmacy generic Pharmacy: e- [facility] [id number] [place] [address] - [address] [facility] - [phone] Divvy-Dose for maintenance meds [facility] for insulins and emergent / short term meds Rx coverage: Payor: [facility] MEDICARE / Plan: [facility] DUAL COMPLETE HMO SNP / Product Type: [...] injecting 40 units TID AC meals Insulin Washburn, Disposable, (PEN NEEDLE) 31 gauge x 3/16" Use as directed to inject insulin 5 times daily as directed. insulin: yes, E11.42 isosorbide mononitrate ER (IMDUR) 30 mg 24 hr tablet Take 1 tablet by mouth once daily. lancets 33 gauge None Entered Lancets lancets Use as directed to check blood sugar 3 times daily, insulin: yes, E11.9 Lancing Device (LANCING DEVICE WITH LANCETS) [facility] Use as directed to check blood sugar [...] dailyfor 7 days. WALKER ROLLATOR SEAT WITH 6" WHEELS - RED Walker rollator with seat Rx meds not listed in EPIC: No OTCs: No Herbals/Supplements: No Drug-drug interactions: none identified On ZAHIRA/ARB: yes On Statin: yes GLYCEMIC CONTROL: Glucometer/CGM present at visit: No SMBG s: none present Has not used CGM sensor in 3 weeks, awaiting refill shipment from [facility] Reports using fingerpricks infrequently but does not [...] polyneuropathy, with long-term current use of insulin ([facility]) - ICD9: 250.60, 357.2, V58.67, ICD10: E11.42, [...] was 30 minutes. Thank you, Susan Cuello, Angela, BCACP documented in this encounterMedina Hospital09-07-2022 Miscellaneous Notes* Telephone Encounter - Solange Arenas RN - 07/05/2022 8:36 AM EDT Patient called the [facility] with concerns regarding increased swelling. Denies dietary indiscretion and cannot stand long enough to be weighed. Patient had a virtual visit with her new primary on 06/23/22 and swelling was noted. She is no longer with Dr. Deng. Patient states her primary increased her primary increased her Lasix from 20 mg daily to 20 mg BID x 2 weeks and encouraged her to call the [facility]. She is scheduled for a phone visit with the [facility] on 07/21/22. Patient states that she forgets to take the second dose of Lasix. Review of note from primary states that the patient was to take 40 mg of Lasix daily. Encouraged patient to take 2 tablets of her 20 mg Lasix (40 mg) daily x 2 weeks as directed by primary. Patient advised to call the [facility] if swelling increases or symptoms develop. Patient verbalized understanding. documented in this encounterMedina Hospital09-07-2022 Instructions* Patient Instructions* Agustin Barahona APRN.CNP - [...] please let me know. documented in this encounterMedina Hospital09-07-2022 History of Present illness Narrative* Agustin Barahona APRN.CNP - 07/05/2022 8:01 AM EDT VIRTUAL VISIT PROGRESS NOTE This is a virtual visit using [employer] video visit. It required patient-provider interaction for [...] next week. 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 WALKER ROLLATOR SEAT WITH 6" WHEELS - RED Walker rollator with seat [...] which included preparing to see the patient, [id number] patient care, completing clinical documentation, obtaining and/or reviewing separately obtained history, performing a medically appropriate examination, counseling and educating the pat ient/family/caregiver, and ordering medications, tests, or procedures Agustin Barahona APRN.HEATHER documented in this encounterMedina Hospital09-02-2022 Miscellaneous Notes* Telephone Encounter - Modesta Hager - 06/30/2022 6:07 PM EDT Patient, , states she is cancelling [facility] and now has a new PCP as of 06/23/22. Modesta Hager * Telephone Encounter - Domenica Olvera - 06/29/2022 8:54 AM EDT Please call pt to verify if she will be continuing with [facility] or staying with her currently listed PCP and update chart accordingly. Domenica Olvera documented in this encounterMedina Hospital08-31-2022 Miscellaneous Notes* Telephone Encounter - Sourva Hill - 06/28/2022 11:20 AM EDT I [...] other options for equipment - beyond the "traditional" CPAP equipment. Would it perhaps help to have the patient referred to sleep medicine? Or something else that might benefit based on her concerns? For now I left her sleep study appointment on the schedule (07/10/22 at 8pm). Patient's phone number is: [phone] Please advise. Thank you. Sourav Hill .sourav documented in this encounterMedina Hospital08-30-2022 Miscellaneous Notes* Telephone Encounter - Sourav Hill - 06/27/2022 9:57 AM EDT Referral was submitted for patient via [facility] portal to: SLEEP MEDICINE Confirmation number: [id number] Sourav Hill documented in this encounterMedina Hospital08-29-2022 Miscellaneous Notes* Telephone Encounter - Sourav Hill - 06/26/2022 4:16 PM EDT Faxed referral for home health to [facility] no. [phone] Sourav Hill documented in this encounterMedina Hospital08-29-2022 Miscellaneous Notes* Telephone Encounter - Davis Loving [...] DM. Agustin Barahona APRN.CNP documented in this encounterMedina Hospital08-29-2022 Miscellaneous Notes* Telephone Encounter - Porsha Mejia RN - 06/26/2022 11:37 AM EDT Requesting order for continued follow up with the [facility] documented in this encounterMedina Hospital08-26-2022 Instructions* Patient Instructions* Agustin Barahona APRN.CNP - [...] hydrocortisone cream on rash documented in this encounterMedina Hospital08-26-2022 History of Present illness Narrative* Agustin Barahona APRN.CNP - 06/23/2022 1:00 PM EDT Images from the original note were not included. [facility] [address] [place] [address] Date of Evaluation: 06/25/2022 Patient Name: Kimberly Patel : 1955 Chief Complaint: Patient presents with: New Patient Evaluation Nursing Intake: There are no exam notes on file for this visit. Subjective Ms. Patel is a 66 year old female who presents with the following complaint(s): HPI Pt presents to establish with provider. Pt seen last at [facility] by Dr. Moe Meyer in November [...] >5 years ago CHF (congestive heart failure) ([facility]) COPD (chronic obstructive pulmonary disease) ([facility]) DM2 (diabetes mellitus, type 2) ([facility]) HTN (hypertension) Mixed hyperlipidemia Pneumonia due to [...] 80 units subcutaneously in the PM Insulin Washburn, Disposable, (PEN NEEDLE) 31 gauge x 3/16" Use as directed to inject insulin 5 [...] 30 Packet 1 WALKER ROLLATOR SEAT WITH 6" WHEELS - RED Walker rollator with seat [...] 77 Temp (Src) 97.9 (Tympanic) Ht 5' 5" (1.65m) SpO2 98% Physical Exam Vitals and [...] as scheduled 10. Coronary artery disease involving standing rock coronary artery of standing rock heart without angina pectoris - ICD9: 414.01, ICD10: I25.10 -schedule annual apt with cardiology - LIPID PANEL BASIC 11. Stage 3b chronic kidney disease (HCC) - ICD9: 585.3, ICD10: N18.32 -establish with nephrology 12. Elevated TSH - ICD9: 794.5, ICD10: R79.89 - TSH BLD Agustin Barahona APRN.FINANCIAL DEVELOPER Return in about 3 weeks (around 07/14/2022). Discussed the above with the patient using shared decision making. The patient is in agreement with the diagnostic and treatment plans. documented in this encounterMedina Hospital08-15-2022 NoteHNO ID: [id number] Author: Susan Cuello [facility] Service: ? Author Type: Pharmacist [...] (Dr. Deng), 03/22/22 [facility] ([facility]), 04/13/22 Kimberly Patel is a 66 [...] (HF sodium-free diet); does reportedly lightly salt romanian fries infrequently EXERCISE: walks around inside of [...] Sleep Apnea) Chf (Congestive Heart Failure) ([facility]) Type 2 Diabetes Mellitus With Diabetic Polyneuropathy, With Long-Term Current Use of Insulin ([facility]) Coronary Arteriosclerosis in [place] Artery Bipolar Disorder ([facility]) Mixed Hyperlipidemia Class 3 Severe Obesity With Serious Comorbidity and Body Mass Index (Bmi) of 45.0 to 49.9 in Adult ([facility]) Chronic Respiratory Failure With Hypoxia ([facility]) Chronic Obstructive Pulmonary Disease ([facility]) Physical Debility Recurrent Uti (Urinary Tract Infection) Primary Hypertension Stage 3b Chronic Kidney Disease ([facility]) Microalbuminuria Restrictive Lung Disease Chronic Heart Failure With Preserved Ejection Fraction (Hfpef) ([facility]) Requires Assistance With Activities of Daily Living (Adl) Weakness of Both Legs Ddd (Degenerative Disc Disease), Lumbar Spondylolisthesis of Lumbar Region Trigger Middle Finger of Right Hand History of Covid-19 Slow Transit Constipation PAST MEDICAL HISTORY Diagnosis Date Asthma CAD (coronary artery disease) s/p stent. last one >5 years ago CHF (congestive heart failure) ([facility]) COPD (chronic obstructive pulmonary disease) ([facility]) DM2 (diabetes mellitus, type 2) ([facility]) HTN (hypertension) Mixed hyperlipidemia Pneumonia due to COVID-19 virus 10/13/2020 ALLERGIES Allergen Reactions Dilaudid [Hydromorp* Vomiting Jardiance [Empaglif* Other: See Comments UTI Metformin Diar (more content not included)...[facility] 06-09-2022 Miscellaneous Notes* Telephone Encounter - Frankie Deng MD - 06/09/2022 2:30 PM EDT Breo and albuterol INH eRx'd to [facility]. documented in this encounterMedina Hospital08-02-2022 Miscellaneous Notes* Telephone Encounter - Merissa Browne LPN - 05/30/2022 8:03 AM EDT Patient's request for medication is as follows: Pending Prescriptions Disp Refills EZETIMIBE 10 MG TABLET 90 tablet 2 Sig: TAKE 1 TABLET BY MOUTH EVERY DAY PETE: Yes Last seen 02/27/2022. Prescription(s) as above. Please process accordingly. Merissa Browne LPN documented in this encounterMedina Hospital07-26-2022 NoteHNO ID: [id number] Author: Susan Cuello RPh Service: ? Author [...] (Dr. Deng), 03/22/22 [facility] ([facility]),?04/13/22 Kimberly Patel is a 66 year [...] with skin pinch. o Plans to pick out hand shorter needles soon Current?DM medications:? ? linagliptin?5 [...] (HF sodium-free diet); does reportedly lightly salt romanian fries infrequently ? EXERCISE:?walks around inside of [...] Sleep Apnea) Chf (Congestive Heart Failure) (Formerly [facility]) Type 2 Diabetes Mellitus With Diabetic Polyneuropathy, With Long-Term Current Use of Insulin (Formerly [facility]) Coronary Arteriosclerosis in [place] Artery Bipolar Disorder (Formerly [facility]) Mixed Hyperlipidemia Class 3 Severe Obesity With Serious Comorbidity and Body Mass Index (Bmi) of 45.0 to 49.9 in Adult (Formerly [facility]) Chronic Respiratory Failure With Hypoxia (Hcc) Chronic Obstructive Pulmonary Disease (Formerly [facility]) Physical Debility Recurrent Uti (Urinary Tract Infection) Primary Hypertension Stage 3b Chronic Kidney Disease (Hcc) Microalbuminuria Restrictive Lung Disease Chronic Heart Failure With Preserved Ejection Fraction (Hfpef) (Formerly [facility]) Requires Assistance With Activities of Daily Living (Adl) Weakness of Both Legs Ddd (Degenerative Disc Disease), Lumbar Spondylolisthesis of Lumbar Region Trigger Middle Finger of Right Hand History of Covid-19 Slow Transit Constipation PAST MEDICAL HISTORY Diagnosis Date - Asthma - CAD (coronary artery disease) s/p stent. last one >5 years ago - CHF (congesti (more content not included)...[facility] 05-23-2022 History of Present illness Narrative* Susan Cuello [facility] - 05/23/2022 2:30 PM EDT Images from the original note were not included. Primary Care Pharmacy Visit Patient consents to pharmacy consult agreement. CC (Reason for Consult): Type 2 diabetes mellitus with diabetic polyneuropathy, with long-term current use of insulin ([facility]) - ICD9: 250.60, 357.2, V58.67, ICD10: E11.42, Z79.4 Goal: A1c <8% Last Collaborating Physician Visit: [facility] (Dr. Deng), 03/22/22 [facility] (STATOR WINDER Shea Childers), 04/13/22 Kimberly Patel is a [...] with skin pinch. o Plans to pick out hand shorter needles soon Current DM medications: linagliptin [...] (HF sodium-free diet); does reportedly lightly salt romanian fries infrequently EXERCISE: walks around inside of [...] Sleep Apnea) Chf (Congestive Heart Failure) (Formerly [facility]) Type 2 Diabetes Mellitus With Diabetic Polyneuropathy, With Long-Term Current Use of Insulin ([facility]ly [facility]) Coronary Arteriosclerosis in [place] Artery Bipolar Disorder (Formerly [facility]) Mixed Hyperlipidemia Class 3 Severe Obesity With Serious Comorbidity and Body Mass Index (Bmi) of 45.0 to 49.9 in Adult ([facility]ly [facility]) Chronic Respiratory Failure With Hypoxia ([facility]) Chronic Obstructive Pulmonary Disease ([facility]) Physical Debility Recurrent Uti (Urinary Tract Infection) Primary Hypertension Stage 3b Chronic Kidney Disease ([facility]) Microalbuminuria Restrictive Lung Disease Chronic Heart Failure With Preserved Ejection Fraction (Hfpef) (Formerly [facility]) Requires Assistance With Activities of Daily Living (Adl) Weakness of Both Legs Ddd (Degenerative Disc Disease), Lumbar Spondylolisthesis of Lumbar Region Trigger Middle Finger of Right Hand History of Covid-19 Slow Transit Constipation PAST MEDICAL HISTORY Diagnosis Date Asthma CAD (coronary artery disease) s/p stent. last one >5 years ago CHF (congestive heart failure) ([facility]) COPD (chronic obstructive pulmonary disease) (HCC) DM2 (diabetes mellitus, type 2) ([facility]) HTN (hypertension) Mixed hyperlipidemia Pneumonia due to COVID-19 virus 10/13/2020 ALLERGIES Allergen Reactions Dilaudid [Hydromorp* Vomiting Jardiance [Empaglif* Other: See Comments UTI Metformin Diarrhea Morphine Vomiting Ondansetron Unknown Penicillins Rash Trulicity [Dulaglut* GI Upset Nausea/Vomiting MEDICATIONS/SUPPLIES: Pill bottles are not present. Adherence: denies missed doses. Organization System: Ne[employer]ens Pill-pack for all oral meds (Divvy-Dose) Does the patient have diabetes supplies: Yes ? CGM = [employer] 2; has mobile fern & reader device (via [facility] Supp[facility]; $0 co-pay) In current transition to new CGM supply company --> [employer]... ? Glucometer = One touch ultra 2 ? Lancing Device = [facility] [id number] [place] [address] [address] [facility] - [phone] ? Divvy-Dose for maintenance meds ? [facility] for [facility] and emergent / short term meds Rx coverage: Payor: [facility] MEDICARE / Plan: [facility] DUAL COMPLETE HMO SNP / Product Type: [...] MOUTH EVERY DAY flash glucose scanning reader (UnivaSTYLE GABRIELLE 2 READER) 1 Each. Use as [...] or immediately after your meals. Confirmed Insulin [place], Disposable, (PEN NEEDLE) 31 gauge x 3/16" Use as directed to inject insulin 5 [...] mouth twice daily. WALKER ROLLATOR SEAT WITH 6" WHEELS - RED Walker rollator with seat Rx meds not listed in EPIC: No OTCs: No Herbals/Supplements: No Drug-drug interactions: none identified On ZAHIRA/ARB: yes On Statin: yes GLYCEMIC CONTROL: Glucometer/CGM present at visit: Yes; [employer] 2 synced remotely Summary of CGM Findings: CGM recording is adequate for interpretation; glucose variability: 26.6% (goal <36%) Average glucose is 193 mg/dL "Very High" (>250 mg/dL) 16% "High" (181-250 mg/dL) 39% Time in target range (70-180 mg/dL) 45% "Low" (54-69 mg/dL) <1% "Very low" (<54 mg/dL) 0% Hypoglycemia: yes; reports a few events since last appointment that were reportedly treated appropriately and resolved o Nocturnal hypoglycemia? - No ? Hypoglycemia awareness: yes (felt weak and shakey) ? How corrected: OJ, earnest, emmy, julia; previously reviewed rule of 15 VITALS: [...] Not calculated The 10-year ASCVD risk score (Columbusjoann MORGAN Jr., et al., 2013) is: 17.7% [...] Susan Cuello PharmD, BCACP documented in [facility]Med[facility]22 Miscellaneous Notes* Telephone Encounter - KRISTIN Mendiola - 05/11/2022 12:57 PM EDT Visit cancelled. Call back not received from family. Will make further attempts to reschedule. KRISTIN Mendiola * Telephone Encounter - KRISTIN Mendiola - 05/10/2022 4:36 PM EDT Left message at [phone] requesting call back to confirm post hospital for 05/12. KRISTIN Mendiola * Telephone Encounter - Frankie Deng MD - 05/08/2022 6:42 PM EDT Page by dtr. Pt DC'd from [facility] yesterday. Had sepsis and UTI. Furosemide [...] needs post-hospitalization fu. Thanks. documented in this encounterMedina Hospital07-13-2022 NoteHNO ID: [id number] Author: Susan Cuello [facility] Service: ? Author Type: Pharmacist [...] (Dr. Deng), 03/22/22 [facility] (STATOR WINDER Shea Childers), 04/13/22 Kimberly Patel is a [...] Reports will be establishing with an external Real Estate Appraiser Supervisor, Dr. Ramírez on 06/22/22 - Skipped her [...] (HF sodium-free diet); does reportedly lightly salt romanian fries infrequently ? EXERCISE:?walks around inside of [...] Sleep Apnea) Chf (Congestive Heart Failure) (Formerly [facility]) Type 2 Diabetes Mellitus With Diabetic Polyneuropathy, With Long-Term Current Use of Insulin ([facility]) Coronary Arteriosclerosis in [place]tery Bipolar Disorder ([facility]ly [facility]) Mixed Hyperlipidemia Class 3 Severe Obesity With Serious Comorbidity and Body Mass Index (Bmi) of 45.0 to 49.9 in Adult ([facility]) Chronic Respiratory Failure With Hypoxia ([facility]) Chronic Obstructive Pulmonary Disease ([facility]) Physical Debility Recurrent Uti (Urinary Tract Infection) Primary Hypertension Stage 3b Chron (more content not included)...[facility] 05-10-2022 History of Present illness Narrative* Susan Cuello, [facility] - 05/10/2022 11:30 AM EDT Images from the original note were not included. Primary Care Pharmacy Visit Patient consents to pharmacy consult agreement. CC (Reason for Consult): Type 2 diabetes mellitus with diabetic polyneuropathy, with long-term current use of insulin ([facility]) - ICD9: 250.60, 357.2, V58.67, ICD10: E11.42, Z79.4 Goal: A1c <8% Last Collaborating Physician Visit: [facility] (Dr. Deng), 03/22/22 [facility] (STATOR WINDER Shea Childers), 04/13/22 Kimberly Patel is a [...] Reports will be establishing with an external Real Estate Appraiser Supervisor, Dr. Ramírez on 06/22/22 Skipped her Levemir [...] 42 units before dinner -- has been [id number] units TID AC meals Previously trialed DM [...] (HF sodium-free diet); does reportedly lightly salt romanian fries infrequently EXERCISE: walks around inside of [...] Sleep Apnea) Chf (Congestive Heart Failure) ([facility]ly [facility]) Type 2 Diabetes Mellitus With Diabetic Polyneuropathy, With Long-Term Current Use of Insulin ([facility]) Coronary Arteriosclerosis in [place]tery Bipolar Disorder ([facility]) Mixed Hyperlipidemia Class 3 Severe Obesity With Serious Comorbidity and Body Mass Index (Bmi) of 45.0 to 49.9 in Adult ([facility]) Chronic Respiratory Failure With Hypoxia ([facility]) Chronic Obstructive Pulmonary Disease ([facility]) Physical Debility Recurrent Uti (Urinary Tract Infection) Primary Hypertension Stage 3b Chronic Kidney Disease ([facility]) Microalbuminuria Restrictive Lung Disease Chronic Heart Failure With Preserved Ejection Fraction (Hfpef) ([facility]ly [facility]) Requires Assistance With Activities of Daily Living (Adl) Weakness of Both Legs Ddd (Degenerative Disc Disease), Lumbar Spondylolisthesis of Lumbar Region Trigger Middle Finger of Right Hand History of Covid-19 Slow Transit Constipation PAST MEDICAL HISTORY Diagnosis Date Asthma CAD (coronary artery disease) s/p stent. last one >5 years ago CHF (congestive heart failure) ([facility]) COPD (chronic obstructive pulmonary disease) ([facility]) DM2 (diabetes mellitus, type 2) ([facility]) HTN (hypertension) Mixed hyperlipidemia Pneumonia due to COVID-19 virus 10/13/2020 ALLERGIES Allergen Reactions Dilaudid [Hydromorp* Vomiting Jardiance [Empaglif* Other: See Comments UTI Metformin Diarrhea Morphine Vomiting Ondansetron Unknown Penicillins Rash Trulicity [Dulaglut* GI Upset Nausea/Vomiting MEDICATIONS/SUPPLIES: Pill bottles are not present. Adherence: reports missed doses. o Missed Levemir this AM Organization System: [employer] Pill-pack for all oral meds (Divvy-Dose) Does the patient have diabetes supplies: Yes ? CGM = [employer] 2; has mobile fern & reader device (via [facility]; $0 co-pay) In current transition to new CGM supply company --> [employer]... ? Glucometer = One touch ultra 2 ? Lancing Device [facility] [address] [place] [address] [address] [facility] [phone] ? Divvy-Dose for maintenance meds ? [facility] for [facility] and emergent / short term meds Rx coverage: Payor: [facility] MEDICARE / Plan: [facility] DUAL COMPLETE HMO SNP / Product Type: [...] being home from hospital See Plan Insulin [place], Disposable, (PEN NEEDLE) 31 gauge x 3/16" Use as directed to inject insulin 5 [...] mouth twice daily. WALKER ROLLATOR SEAT WITH 6" WHEELS - RED Walker rollator with seat Rx meds not listed in EPIC: No OTCs: No Herbals/Supplements: No Drug-drug interactions: none identified On ZAHIRA/ARB: yes On Statin: yes GLYCEMIC CONTROL: Glucometer/CGM present at visit: Yes; [employer] 2 synced remotely Summary of CGM Findings: CGM recording is adequate for interpretation; glucose variability: 27.4% (goal <36%) Average glucose is 225 mg/dL "Very High" (>250 mg/dL) 33% "High" (181-250 mg/dL) 49% Time in target range (70-180 mg/dL) 18% "Low" (54-69 mg/dL) <1% "Very low" (<54 mg/dL) 0% Hypoglycemia: o 1 recent [...] (Diana MORGAN Jr., et al., 2013) is: 17.7% Values used to calculate the score: Age: 66 years Sex: Female Is Non- : No Diabetic: Yes Tobacco smoker: No Systolic Blood Pressure: 148 mmHg Is BP treated: Yes HDL Cholesterol: 41 mg/dL Total Cholesterol: 179 mg/dL PHARMACOTHERAPY ASSESSMENT/PLAN 1.) Type 2 diabetes mellitus with diabetic polyneuropathy, with long-term current use of insulin ([facility]) - ICD9: 250.60, 357.2, V58.67, ICD10: E11.42, [...] was 30 minutes. Thank you, Susan Cuello PharmRizwana documented in this encounterMedina Hospital07-10-2022 NoteDischarge Summary Kimberly Patel : 1955 ADMIT [...] Your Medications These medications were sent to [place] [address] [place] [facility] [address] - P [phone] - F [phone] [place] [address] insulin glargine 100 UNIT/ML injection vial insulin lispro 100 UNIT/ML injection vial DIET: ADULT DIET; Regular; 5 carb choices (75 gm/meal) ACTIVITY: No restriction. up with assist SIGNIFICANT DIAGNOSTIC STUDIES: COMPLEXITY OF FOLLOW UP: [] Moderate Complexity: follow up within 7-14 calendar days (94882) [] Severe Complexity: follow up within 7 calendar days (14896) FOLLOW UP TESTING, PENDING RESULTS OR REFERRALS [...] SIGNED: Carli Benites MD 05/07/2022, 3:18 [facility]07-10-2022 History of Present illness Narrative* Marsha [...] included. Hospitalist Progress Note 05/06/2022 2:14 PM [phone]: Please page me ([phone]) for patient care issues. [phone]: Please page IMS night Hospitalist for any issues. Subjective: Admit Date: 04/30/2022 PCP: FRANKIE DENG MD Room#: [id number] Interval History: Overnight events reviewed, pt wants [...] Diabetes mellitus (HCC) LABS: CBC: Recent Labs 05/04/2220805/05/2255105/06/22 011 WBC 6.1 7.9 9.2 RBC 3.06* 3.32* 3.14* HGB 9.2* 9.8* 9.4* HCT 27.5* 29.7* 28.0* MCV 89.8 89.2 89.1 RDW 13.6 13.4 13.5 PLT 90* 135* 171 BMP: Recent Labs 05/04/2220805/05/2255105/06/22 011 NA 137 139 137 K 4.7 4.6 4.3 CL 104 104 102 CO2 28 31* 32* BUN 30* 26* 27* CREATININE 1.20 1.30* 1.48* GLUCOSE 268* 245* 242* CALCIUM 8.4 8.7 8.8 ANIONGAP 5 4 3 LIVER PROFILE: Recent Labs 05/04/2220805/05/2252 05/06/22 011 AST 14* 16 18 ALT 11 13 [...] (35.7 C) (Temporal) Resp 16 Ht 5' 5" (1.651 m) Wt 293 lb 3.2 oz [...] of Hospitalist Medicine Inpatient Medical Services PAGER: [phone] * Irais Ramírez MD - 05/06/2022 9:00 AM EDT [facility] Progress Note Subjective/ [...] included. Hospitalist Progress Note 05/05/2022 4:48 PM [phone]: Please page me ([phone]) for patient care issues. [phone]: Please page IMS night Hospitalist for any issues. Subjective: Admit Date: 04/30/2022 PCP: FRANKIE DENG MD Room#: [id number] Interval History: Overnight events reviewed, refused therapy [...] Diabetes mellitus (HCC) LABS: CBC: Recent Labs 05/03/2214305/04/2220805/05/22 0552 WBC 6.3 6.1 7.9 RBC 2.86* 3.06* 3.32* HGB 8.5* 9.2* 9.8* HCT 25.6* 27.5* 29.7* MCV 89.5 89.8 89.2 RDW 13.8 13.6 13.4 PLT 80* 90* 135* BMP: Recent Labs 05/03/2214305/04/22 02005/05/22 0552 NA 136 137 139 K 4.5 4.7 4.6 CL 103 104 104 CO2 30 28 31* BUN 33* 30* 26* CREATININE 1.51* 1.20 1.30* GLUCOSE 255* 268* 245* CALCIUM 8.1* 8.4 8.7 ANIONGAP 3 5 4 LIVER PROFILE: Recent Labs 05/03/2214305/04/22 02005/05/22 0552 AST 15 14* 16 ALT [...] (36.3 C) (Temporal) Resp 16 Ht 5' 5" (1.651 m) Wt 293 lb 3.2 oz [...] Patient refusing SNF, would prefer home with [facility]. Possible discharge tomorrow after PT evaluation -am labs, replace lytes prn -increase activity -DVT prophylaxis: [] Lovenox [] Heparin [] SCDs [x] Encourage ambulation [] Already on Anticoagulation Advance Directive: Full Code Discharge planning: TBD Ann Reed MD Division of Hospitalist Medicine Inpatient Medical Services PAGER: [phone] * Moe Burns, PT - 05/05/2022 3:44 PM EDT Physical Therapy Facility/Department: [facility] TELEMETRY Physical Therapy Daily Treatment Note Name: Kimberly Patel : 1955 Date of Service: 05/05/2022 Discharge Recommendations: Subacute/Fdc Facility Patient Diagnosis(es): The encounter diagnosis was [...] self limiting, declines attempt at transfer to [facility] and requests 2 therapists to complete all [...] Required Braces or Orthoses?: No Subjective Pain: 01/05 pain lumbar region. General Chart Reviewed: Yes [...] rapid fatigue. Pt wanting to get to [facility] but somewhat self limiting, fearful and declines [...] Inpatient CMS G-Code Modifier : CL (05/05/22 150) Goals Short Term Goals Time Frame for [...] Pulse: 82 83 78 75 Resp: 18 18 Temp: 97.2 F (36.2 C) 97.5 [...] warm, moist, no rashes Data/ Recent Labs 05/03/2214305/04/22 0209 05/05/22 0552 WBC 6.3 6.1 7.9 HGB 8.5* 9.2* 9.8* HCT 25.6* 27.5* 29.7* MCV 89.5 89.8 89.2 PLT 80* 90* 135* Recent Labs 05/03/2214305/04/22 0209 05/05/22 0552 NA 136 137 139 [...] us with any questions or concerns. Hema Giron APRN, FINANCIAL DEVELOPER [facility] [phone] I have reviewed the above assessment and plan with the STATOR WINDER. I agree with above note. * Ann Tripp RN - 05/04/2022 3:30 PM EDT Patient's assessment remains unchanged. She is sitting up comfortably in bed with no new issues or concerns. Will continue to monitor. * SÁNCHEZ Kate - 05/04/2022 3:13 PM EDT Occupational Therapy Facility/Department: [facility] TELEMET[facility] Occupational Therapy Daily Treatment Note Name: Kimberly Patel : 1955 Date of Service: 05/04/2022 Subjective General Chart Reviewed: Yes Subjective Subjective: "I do (want therapy) but not right now. I have to get my IV worked on. It's leaking" General Comment Comments: Pt wants to work on BSC transfers as she is planning on going home tomorrow and will be doing that herself. "I want to practice before I get home". SÁNCHEZ Kate * Ann Reed MD - 05/04/2022 2:01 PM EDT Images from the original note were not included. Hospitalist Progress Note 05/04/2022 2:02 PM [phone]: Please page me ([phone]) for patient care issues. [phone]: Please page IMS night Hospitalist for any issues. Subjective: Admit Date: 04/30/2022 PCP: FRANKIE DENG MD Room#: [id number] Interval History: Overnight events reviewed, refused therapy [...] 5 LIVER PROFILE: Recent Labs 05/02/22 0502 05/03/22 0144 05/04/22 0209 AST 16 15 14* ALT 11 [...] (36.1 C) (Temporal) Resp 16 Ht 5' 5" (1.651 m) Wt 293 lb 3.2 oz [...] Patient refusing SNF, would prefer home with [facility]. Possible discharge in 48-72 hrs. -am labs, replace lytes prn -increase activity -DVT prophylaxis: [] Lovenox [] Heparin [] SCDs [x] Encourage ambulation [] Already on Anticoagulation Advance Directive: Full Code Discharge planning: TBD Ann Reed MD Division of Hospitalist Medicine Inpatient Medical Services PAGER: [phone] * Radha Costa MD - 05/04/2022 1:19 [...] non-oliguric, BP stable No acute need for ROTO MIXER OPERATOR at this time Avoid further IVF as [...] us with any questions or concerns. Hema Giron APRN, FINANCIAL DEVELOPER [facility] [phone] I have reviewed the above assessment and plan with the STATOR WINDER. I agree with above note. * Carmen Talamantes DO - 05/03/2022 2:43 PM EDT Images from the original note were not included. Hospitalist Progress Note 05/03/2022 [phone]: Please page IMS night Hospitalist for any issues. Subjective: Admit Date: 04/30/2022 PCP: FRANKIE DENG MD Room#: [id number]/1664 Interval History: Patient seen and examined at [...] Procalcitonin: Lab Results Component Value Date/Time PROCAL 12.30 05/03/2022 01:44 AM COVID-19 PCR: Recent Labs 04/30/22 1656 COVID19 Not Detected. Objective: Vitals: BP 129/68 Pulse 71 Temp 98.1 F (36.7 C) (Temporal) Resp 15 Ht 5' 5" (1.651 m) Wt 293 lb 3.2 oz [...] Patient refusing SNF, would prefer home with [place]. Possible discharge in 48-72 hrs. -DVT prophylaxis: [] Lovenox [x] Heparin [] SCDs [x] Encourage ambulation [] Already on Anticoagulation Advance Directive: Full Code Discharge planning: TBD Carmen Talamantes DO Division of Hospitalist Medicine Inpatient Medical Services/[facility] [place] * Ana Lilia Zhu OT - 05/03/2022 1:57 PM EDT Occupational Therapy Facility/Department: [facility] TELEMETRY Daily Treatment Note NAME: Kimberly Patel [...] Costa MD - 05/03/2022 11:03 AM EDT [facility] Subjective/ 66 y.o. [...] non-oliguric, BP stable No acute need for ROTO MIXER OPERATOR at this time Avoid further IVF as [...] us with any questions or concerns. Hema Giron APRN, FINANCIAL DEVELOPER [employer] [phone] I have reviewed the above assessment and plan with the STATOR WINDER. I agree with above note. Continue same Rx. * Didier Esquivel [facility] - 05/02/2022 11:57 PM EDT Pharmacy Vancomycin Consult Follow-Up Note Current Dosin mg q24h Recent Labs 05/01/22 0122 05/02/22 0502 BUN 44* 43* Recent Labs 05/01/22 0122 05/02/22 0502 CREATININE 1.77* 1.39* Recent Labs 05/01/22 0241 05/02/22 0502 WBC 13.7* 7.5 Ht Readings from Last 1 Encounters: 04/30/22 5' 5" (1.651 m) Wt Readings from Last 1 Encounters: 04/30/22 280 lb (127 kg) Body mass index is 46.59 kg/m . Estimated Creatinine Clearance: 55 mL/min (A) (based on SCr of 1.39 mg/dL (H)). Trough: 9.9 mcg/ml drawn 05/02 at 2326 Assessment/Plan: Trough subtherapeutic, will increase dose to 1250 mg q12h and order next level for prior to 4th dose * Carmen Talamantes, - 05/02/2022 1:36 PM EDT Images from the original note were not included. Hospitalist Progress Note 05/02/2022 [phone]: Please page [facility] Hospitalist for any issues. Subjective: Admit Date: 04/30/2022 PCP: Moe Meyer MD Room#: [phone]/[id number] Interval History: Patient seen and examined at [...] Net -1500 ml LABS: CBC: Recent Labs 04/30/225 05/01/22 0241 05/02/22 0502 WBC 10.9* 13.7* [...] (36.2 C) (Temporal) Resp 16 Ht 5' 5" (1.651 m) Wt 280 lb (127 kg) [...] planning: TBD Carmen Talamantes DO [facility] [place] [place] * Radha Costa MD - 05/02/2022 12:33 [...] non-oliguric, BP improving No acute need for ROTO MIXER OPERATOR at this time Stop IVF and resume [...] contact us with any questions or concerns. Heam Giron APRN, FINANCIAL DEVELOPER [facility] [phone] Seen and examined. Agree with above A and P. Cr improving. Not tolerating much IVF, will stop IVF. Start low dose Lasix. * Vickey Donovan OT - 05/02/2022 10:21 AM EDT Occupational Therapy Facility/Department: [facility] TELEMETRY Occupational Therapy Initial Assessment Name: Kimberly Patel : 1955 Date of Service: 05/02/2022 Discharge Recommendations: Subacute/Fdc Facility OT Equipment Recommendations Equipment Needed: (TBD [...] Inpatient Daily Activity Raw Score: 16 (05/02/22 102) AM-PAC Inpatient ADL T-Scale Score : 35.96 (05/02/22 102) ADL Inpatient CMS 0-100% Score: 53.32 (05/02/221021) ADL Inpatient CMS G-Code Modifier : CK [...] 05/02/2022 10:02 AM EDT Physical Therapy Facility/Department: [facility] TELEMETRY Physical Therapy Initial Assessment Name: Kimberly Patel : 1955 Date of Service: 05/02/2022 Discharge Recommendations: Subacute/Fdc Facility PT Equipment Recommendations Equipment Needed: No [...] Medium Complexity History: UTIs, CHF, COPD Exam: [facility] Clinical Presentation: Pt admitted 04/30 with UTI/sepsis. [...] were not included. Hospitalist Progress Note 05/01/2022 9900-1323: Please page me ([phone]) for patient care issues. 0714-0443: Please page [facility] night Hospitalist for any issues. Subjective: Admit Date: 04/30/2022 PCP: Moe Meyer MD Room#: 453/4531 Interval History: No overnight issues. Feels slightly [...] 13.6 PLT 212 100* BMP: Recent Labs 04/30/22 1655 05/01/22 0122 NA 135 136 K 4.4 4.5 CL 101 100 CO2 30 30 BUN 41* 44* CREATININE 1.29* 1.77* GLUCOSE 274* 282* CALCIUM 8.6 7.8* ANIONGAP 4 6 LIVER PROFILE: Recent Labs 04/30/22165405/01/22 0122 AST 21 19 ALT 16 14 BILITOT [...] (36.2 C) (Temporal) Resp 16 Ht 5' 5" (1.651 m) Wt 280 lb (127 kg) [...] MD Division of Hospitalist Medicine Inpatient Medical Services/[facility] [place], [place] PAGER: [phone] * Sravanthi Bal RN - 04/30/2022 10:14 PM EDT Pt stated that her community development officer allows only 64 oz of fluid per day due to heart failure. Updated physician, pt now has order for IV fluids. * Sravanthi Bal RN - 04/30/2022 7:45 PM EDT Patient admitted to room 453. Oriented to call system and visiting hours and meal times. No distress noted.Call Light within reach. documented in this [facility] Work Phone: 1(155) 819-816307-09-2022 Hospital Discharge instructions* Discharge Instr - Lab* Zelda Salazar LPN - 05/06/2022 7:33 PM EDT Your physician has ordered skilled home care services for you. Your home care will be provided by: [facility] [phone] * Additional Instructions* Carli Benites MD - 05/07/2022 Follow up with nephrology as scheduled documented in this encounterSUMRadario Work Phone: [phone] Miscellaneous Notes* Telephone Encounter - Frankie Deng MD - 04/14/2022 5:59 PM EDT Happy to assist. Consult signed. * Telephone Encounter - Susna Cuello RPh - 04/14/2022 1:10 PM EDT [...] you, Susan Cuello PharmD documented in this encounter[facility]06-[facility]22 NoteHNO ID: [id number] Author: Susan Cuello RPh Service: ? Author [...] (Dr. Deng), 03/22/22 [facility] ([facility]OR WINDER Shea Childers), 04/13/22 Kimberly Patel is a [...] Humalog with her lunch if she is "only having 1 sandwich" o Almost always takes Humalog with her dinner - Has NOT been pinching her skin with new, longer 8 mm needles o "I do not have any jiggle to pinch, so I am just sticking the needle straight in" - Not open to switching insulin products [...] (HF sodium-free diet); does reportedly lightly salt romanian fries infrequently ? EXERCISE:?walks around inside of [...] Sleep Apnea) Chf (Congestive Heart Failure) ([facility]) Type 2 Diabetes Mellitus With Diabetic Polyneuropathy, With Long-Term Current Use of Insulin ([facility]) Coronary Arteriosclerosis in [place] Artery Bipolar Disorder ([facility]) Mixed Hyperlipidemia Class 3 Severe Obesity With Serious Comorbidity and Body Mass Index (Bmi) of 45.0 to 49.9 in Adult ([facility]) Chronic Respiratory Failure With Hypoxia ([facility]) Chronic Ob (more content not included)...[facility]06-17-2022 History of Present illness Narrative* Susan Cuello, [facility] - 04/14/2022 11:30 AM EDT Images from the original note were not included. Primary Care Pharmacy Visit Patient consents to pharmacy consult agreement. CC (Reason for Consult): Type 2 diabetes mellitus with diabetic polyneuropathy, with long-term current use of insulin ([facility]) - ICD9: 250.60, 357.2, V58.67, ICD10: E11.42, Z79.4 Goal: A1c <8% Last Collaborating Physician Visit: [facility] (Dr. Deng), 03/22/22 [facility] (SETH Childers), 04/13/22 Kimberly Patel is a 66 [...] Humalog with her lunch if she is "only having 1 sandwich" o Almost always takes Humalog with her dinner Has NOT been pinching her skin with new, longer 8 mm needles o "I do not have any jiggle to pinch, so I am just sticking the needle straight in" Not open to switching insulin products at [...] (HF sodium-free diet); does reportedly lightly salt romanian fries infrequently EXERCISE: walks around inside of [...] Sleep Apnea) Chf (Congestive Heart Failure) ([facility]) Type 2 Diabetes Mellitus With Diabetic Polyneuropathy, With Long-Term Current Use of Insulin ([facility]) Coronary Arteriosclerosis in [place] Artery Bipolar Disorder ([facility]) Mixed Hyperlipidemia Class 3 Severe Obesity With Serious Comorbidity and Body Mass Index (Bmi) of 45.0 to 49.9 in Adult ([facility]) Chronic Respiratory Failure With Hypoxia ([facility]) Chronic Obstructive Pulmonary Disease ([facility]) Physical Debility Recurrent Uti (Urinary Tract Infection) Primary Hypertension Stage 3b Chronic Kidney Disease ([facility]) Microalbuminuria Restrictive Lung Disease Chronic Heart Failure With Preserved Ejection Fraction (Hfpef) ([facility]) Requires Assistance With Activities of Daily Living (Adl) Weakness of Both Legs Ddd (Degenerative Disc Disease), Lumbar Spondylolisthesis of Lumbar Region Trigger Middle Finger of Right Hand History of Covid-19 Slow Transit Constipation PAST MEDICAL HISTORY Diagnosis Date Asthma CAD (coronary artery disease) s/p stent. last one >5 years ago CHF (congestive heart failure) ([facility]) COPD (chronic obstructive pulmonary disease) ([facility]) DM2 (diabetes mellitus, type 2) ([facility]) HTN (hypertension) Mixed hyperlipidemia Pneumonia due to COVID-19 virus 10/13/2020 ALLERGIES Allergen Reactions Dilaudid [Hydromorp* Vomiting Jardiance [Empaglif* Other: See Comments UTI Metformin Diarrhea Morphine Vomiting Ondansetron Unknown Penicillins Rash Trulicity [Dulaglut* GI Upset Nausea/Vomiting MEDICATIONS/SUPPLIES: Pill bottles are not present. Adherence: reports missed doses. Organization System: [facility] [...] Device = [facility] [id number] [place] [address] - [address] - [phone] ? Divvy-Dose for maintenance meds ? [facility] and emergent / short term meds Rx coverage: Payor: [facility] MEDICARE / Plan: [facility] DUAL COMPLETE HMO SNP / Product Type: [...] (COMFORT EZ PEN NEEDLES) 31 gauge x 5/16" Use as directed to inject insulin 5 [...] mouth twice daily. WALKER ROLLATOR SEAT WITH 6" WHEELS - RED Walker rollator with seat Rx meds not listed in EPIC: No OTCs: No Herbals/Supplements: No Renally dosed appropriately? Yes Drug-drug interactions: none identified On ZAHIRA/ARB: yes On Statin: yes GLYCEMIC CONTROL: Glucometer/CGM present at visit: Yes ; [employer] info shared remotely Summary of CGM Findings: CGM recording is adequate for interpretation; glucose variability: 30.2% (goal <36%) Average glucose is 173 mg/dL "Very High" (>250 mg/dL) 8% "High" (181-250 mg/dL) 41% Time in target range (70-180 mg/dL) 51% "Low" (54-69 mg/dL) <1% "Very low" (<54 mg/dL) 0% Nocturnal hypoglycemia? - No Hypoglycemia: 3 recent events (64 mg/dL, 67 mg/dL, 69 mg/dL) though reportedly treated appropriately and resolved Hypoglycemia awareness: yes (felt weak and shakey) How corrected: OJ, pop, candy; previously reviewed [...] (Diana MORGAN Jr., et al., 2013) is: 17.7% Values used to calculate the score: Age: 66 years Sex: Female Is Non- : No Diabetic: Yes Tobacco smoker: No Systolic Blood Pressure: 148 mmHg Is BP treated: Yes HDL Cholesterol: 41 mg/dL Total Cholesterol: 179 mg/dL PHARMACOTHERAPY ASSESSMENT/PLAN 1.) Type 2 diabetes mellitus with diabetic polyneuropathy, with long-term current use of insulin ([facility]) - ICD9: 250.60, 357.2, V58.67, ICD10: E11.42, [...] as indicated. Reviewed adhesive products to consider [id number] to aid in CGM wear longevity Discussed [...] time was 40 minutes. Thank you, Susan Cuello, PharmRizwana documented in this encounterMedina Hospital06-16-2022 NoteHNO ID: [id number] Author: Shea Childers APRN.FINANCIAL DEVELOPER Service: ? Author Type: Nurse Practitioner Type: [...] Video Application used during encounter (i.e. specify [employer] Video Visit, RunRev, StyleSeat): not applicable SERVICE DATE: 04/13/2022 ASSESSMENT IDENTIFICATION [...] Continue current medications -[place] 3. Chronic heart failure with preserved ejection fraction (HFpEF) ([facility]) - ICD9: 428.9, ICD10: I50.32 Patient reports no size or symptoms of fluid overload -Continue current HF regimen -Discussed sodium restriction to less than 2 g per day -Discussed fluid restriction to less than 2000 cc per day -Discussed daily weight to call [facility] office 2 # gain in 24 [...] to call 911 and when to call [facility]. Shea Childers FOLLOW UP ([facility] [id number]) F/U preferably 6-8 weeks, at least within 12 wks; provider: Physician or Nurse Practitioner Schedule next visit as: In Person Face to Face visit DME/Supplies Needed: No SUBJECTIVE Chief Complaint: No chief complaint on file. HISTORY OF PRESENT ILLNESS By problem, patient and/or caregiver's concerns today are: Patient unable to do nniq-vl-aryp. There visit by telephone. Hospital follow-up for [...] The patient is not (more content not included)...[facility]06-16-2022 History of Present illness Narrative* Shea Childers, DARREL.FINANCIAL DEVELOPER - 04/13/2022 8:20 AM EDT MEDICAL CARE AT HOME - VIRTUAL / Telephonic FOLLOW UP VISIT This visit is a phone encounter, that was conducted with patient and/or caregiver's consent, in lieu of a face to face encounter, due to Covid-19 pandemic. This patient encounter involved the screening or treatment of novel coronavirus infection (COVID-19). Video Application used during encounter (i.e. specify [employer] Video Visit, RunRev, StyleSeat): not applicable SERVICE DATE: 04/13/2022 ASSESSMENT IDENTIFICATION [...] polyneuropathy, with long-term current use of insulin ([facility]) - ICD9: 250.60, 357.2, V58.67, ICD10: E11.42, Z79.4 uncontrolled - Continue current medications -[place] is new to [place] 3. Chronic heart failure with preserved ejection fraction (HFpEF) ([facility]) - ICD9: 428.9, ICD10: I50.32 Patient reports no size or symptoms of fluid overload -Continue current HF regimen -Discussed sodium restriction to less than 2 g per day -Discussed fluid restriction to less than 2000 cc per day -Discussed daily weight to call [facility] office 2 # gain in 24 [...] to call 911 and when to call [facility]. Shea Childers FOLLOW UP ([facility] [id number]) F/U preferably 6-8 weeks, at least within 12 wks; provider: Physician or Nurse Practitioner Schedule next visit as: In Person Face to Face visit DME/Supplies Needed: No SUBJECTIVE Chief Complaint: No chief complaint on file. HISTORY OF PRESENT ILLNESS By problem, patient and/or caregiver's concerns today are: Patient unable to do jhot-zc-aeox. There visit by telephone. Hospital follow-up for [...] medical care using telemedicine. SIGNATURE: Shea Childers APRN.HEATHER PATIENT NAME: Kimberly Patel DATE: April 13, 2022 PAGER/CONTACT #: [phone] documented in this encounterMedina Hospital06-14-2022 Miscellaneous Notes* Telephone Encounter - Nanette Remington Pss - 04/11/2022 8:24 AM EDT Please schedule a post ed visit Nanette Macedo Pss documented in this encounterMedina Hospital05-31-2022 Miscellaneous Notes* Telephone Encounter - Susan Cuello [...] the question over to you. Rx #: [id number] Pharmacy comment: Script Clarification:DID THE MD WANT TO INCREASE THE DOSE UP TO 200U/ML FROM THE 100U/ML DOSE....THANKS. documented in this encounterMedina Hospital05-31-2022 Miscellaneous Notes* Telephone Encounter - Emerald Lovell MA - 03/28/2022 10:51 AM EDT I have faxed the orders and the visit notes to [facility]. Emerald Lovell CMA * Telephone Encounter - Frankie Deng MD - 03/25/2022 3:37 PM EDT Noted completed. O2 orders submitted. Thanks. * Telephone Encounter - Clovis Alarcon MA - 03/24/2022 12:31 PM EDT Hema from respiratory called stating patient needs requalification for oxygen. She's requesting to have PCP sign and date note from 03/22 in system and new rx for oxygen. Hema [phone] option 2 Clovis Alarcon documented in this encounterMedina Hospital05-31-2022 Miscellaneous Notes* Telephone Encounter - June Oro Ma - 03/28/2022 8:42 AM EDT The following lab order was sent via e-mail to [facility] on03/28/2022: PATIENT NAME: Kimberly Patel ADDRESS: [address] [place] [address] PHONE NUMBER: [phone] (home) [phone] (cell) DATE OF : 1955 [facility] ORDERING PROVIDER: Frankie Deng MD LAB TESTS: CBC- Diagnosis [E11.42, Z79.4] CMP - Diagnosis [E11.42, Z79.4] HgbA1C - Diagnosis [E11.42, Z79.4] Lipid panel Nonfasting - Diagnosis [E11.42, Z79.4] TSH - Diagnosis [I10] REQUESTED DATE OF COLLECTION: to be collected by 04/03 SPECIFIC SPECIMEN DRAW INFORMATION: N/A June Oro Ma documented in this encounterMedina Hospital05-26-2022 Miscellaneous Notes* Telephone Encounter - SAL Manuel - 03/23/2022 10:11 AM EDT Welcome Home Call: a. Date and Time: 10:11 AM 03/23/2022 b. Contact name/relationship: Kimberly kramerHave you been active with any Home Care company in the last 60 days? No. d. Are you interesting in initiated services with [facility]? yes (yes or no) e. Do you [...] concerns in the meantime, our # is [phone], option 1 (need to confirm) Thank you for your time and have a great day. SAL Manuel documented in this encounterMedina Hospital05-25-2022 NoteHNO ID: [id number] Author: Susan Cuello RPh Service: ? Author [...] time each day) ? Recent Diet changes:?none "still the same bad stuff" ? Breakfast:?5-7 strawberries, coffee ? Lunch:?sandwich (egg salad, PBANDJ, tuna fish) ? Dinner:?chicken, veggies, stuffing or carbs ? Snacks:?fresh fruit (oranges, apples) - not usually at bedtime ? Beverages:?caffiene coffee (with cream; 1 cup/day), water (64 oz/day), V8 juice (once weekly), regular pepsi (1 every 2 weeks) ? Sodium Intake:?does NOT add; uses Ms. Arauz (HF sodium-free diet); does reportedly lightly salt romanian fries infrequently ? EXERCISE:?walks around inside of [...] Sleep Apnea) Chf (Congestive Heart Failure) ([facility]) Type 2 Diabetes Mellitus With Diabetic Polyneuropathy, With Long-Term Current Use of Insulin ([facility]) Coronary Arteriosclerosis in [place] Artery Bipolar Disorder ([facility]) Mixed Hyperlipidemia Class 3 Severe Obesity With Serious Comorbidity and Body Mass Index (Bmi) of 45.0 to 49.9 in Adult ([facility]) Chronic Respiratory Failure With Hypoxia ([facility]) Chronic Obstr (more content not included)...[facility]05-25-2022 NoteHNO ID: [id number] Author: Frankie Deng MD Service: ? Author [...] to improve BS control. - CONSULT TO [facility] - PREGABALIN 75 MG [...] ICD9: 518.83, 799.02, ICD10: J96.11 Review of 2011 spirometry shows restrictive lung disease. Suspect hypoventilation of morbid obesity contributes. - Performed oximetry to demonstrate continued need for O2. - CONSULT TO [facility] - OXYGEN CONCENTRATOR - PORTABLE OXYGEN 4. Restrictive lung disease - ICD9: 518.89, ICD10: J98.4 Cannot obtain weight due to debility. See above. Suspect hypoventilation of morbid obesity. - Will benefit from weight loss. - OXYGEN CONCENTRATOR - PORTABLE OXYGEN 5. Chronic heart failure with preserved ejection fraction (HFpEF) ([facility]) - ICD9: 428.9, ICD10: I50.32 Mild pulm HTN likely related to restrictive lung dz. Low normal EF related to effects of prior DC. May contribute to hypoxia and debility. - [...] Morbid obesity with BMI of 45.0-49.9, adult ([facility]) - ICD9: 278.01, V85.42, ICD10: E66.01, Z68.42 Will benefit from weight loss - Currently no home-based resource available for weight loss counseling. - OXYGEN CONCENTRATOR - PORTABLE OXYGEN 7. Recurrent UTI (urinary tract infection) - ICD9: 599.0, ICD10: N39.0 States she has no si/sx when she has UTI. - Pt tolerates cephalosporins for empirical treatment. - Informed pt to call [facility] if any suspicion of UTI so that treatment can be started LALA - Patient education for prevention given 8. Primary hypertension - ICD9: 401.9, ICD10: I10 - good control - Continue current medication(s) - Goal of BP <130/80 - TSH BLD 9. Coronary artery disease involving standing rock heart without angina pectoris, unspecified vessel or lesion type - ICD9: 414.01, ICD10: I25.10 Hx of DC. Contributor to debility. - Continue CVD event risk reduction regimen. - CONSULT TO [facility] 10. Mixed hyperlipidemia - [...] heart, lung, obesity dz. - CONSULT TO [facility] 13. Weakness of both legs - ICD9: 729.89, ICD10: R29.898 Desuetude and OA contribute. - PT. - CONSULT TO [facility] 14. DDD (degenerative disc disease), lumbar - ICD9: 722.52, ICD10: M51.36 Contributes to decreased mobility. Pain inhibits st (more content not included)...[facility]05-25-[facility] History of Present illness Narrative* Susan Cuello, [facility] - 03/22/2022 11:00 AM EDT [...] time each day) Recent Diet changes: none "still the same bad stuff" Breakfast: 5-7 strawberries, coffee Lunch: sandwich (egg salad, PB&J, tuna fish) Dinner: chicken, veggies, stuffing or carbs Snacks: fresh fruit (oranges, apples) - not usually at bedtime Beverages: caffiene coffee (with cream; 1 cup/day), water (64 oz/day), V8 juice (once weekly), regular pepsi (1 every 2 weeks) Sodium Intake: does NOT add; uses Ms. Dash (HF sodium-free diet); does reportedly lightly salt romanian fries infrequently EXERCISE: walks around inside of [...] Sleep Apnea) Chf (Congestive Heart Failure) ([facility]) Type 2 Diabetes Mellitus With Diabetic Polyneuropathy, With Long-Term Current Use of Insulin ([facility]) Coronary Arteriosclerosis in [place] Artery Bipolar Disorder ([facility]) Mixed Hyperlipidemia Class 3 Severe Obesity With Serious Comorbidity and Body Mass Index (Bmi) of 45.0 to 49.9 in Adult ([facility]) Chronic Respiratory Failure With Hypoxia ([facility]) Chronic Obstructive Pulmonary Disease ([facility]) Physical Debility Recurrent Uti (Urinary Tract Infection) Primary Hypertension Stage 3b Chronic Kidney Disease ([facility]) Microalbuminuria PAST MEDICAL HISTORY Diagnosis Date Asthma CAD (coronary artery disease) s/p stent. last one >5 years ago CHF (congestive heart failure) ([facility]) COPD (chronic obstructive pulmonary disease) ([facility]) DM2 (diabetes mellitus, type 2) ([facility]) HTN (hypertension) Mixed hyperlipidemia Pneumonia due to COVID-19 virus 10/13/2020 ALLERGIES Allergen Reactions Dilaudid [Hydromorp* Vomiting Jardiance [Empaglif* Other: See Comments UTI Metformin Diarrhea Morphine Vomiting Ondansetron Unknown Penicillins Rash Trulicity [Dulaglut* GI Upset Nausea/Vomiting MEDICATIONS/SUPPLIES: Pill bottles are not present. Adherence: denies missed doses. Organization System: [facility] Pill-pack for all oral meds (Divvy-Dose) Does the patient have diabetes supplies: Yes ? CGM = [employer]; has mobile fern & reader device (via [employer]; $0 co-pay) In current transition to new CGM supply company --> [employer]... ? Glucometer = One touch ultra 2 ? Lancing Device = [facility] pharmacy generic ? Pen needles = BD uf micropen needles 5 mm, 32 gauge (previously had 6 mm size) Pharmacy: e- [facility] [id number] [place] [address] - [address] - [phone] ? Divvy-Dose for maintenance meds ? [facility] for [facility] and emergent / short term meds Rx coverage: Payor: [facility] MEDICARE / Plan: [facility] DUAL COMPLETE HMO SNP / Product Type: [...] (COMFORT EZ PEN NEEDLES) 32 gauge x 3/16" ndle Use as directed to inject insulin [...] mouth twice daily. WALKER ROLLATOR SEAT WITH 6" WHEELS - RED Walker rollator with seat Rx meds not listed in EPIC: No OTCs: No Herbals/Supplements: No Renally dosed appropriately? Yes Drug-drug interactions: none identified On ZAHIRA/ARB: yes On Statin: yes GLYCEMIC CONTROL: Glucometer/CGM present at visit: Yes; [employer] 2 info shared remotely Summary of CGM Findings: CGM was only active 24% of the time in the past 2 weeks CGM recording is adequate for interpretation; glucose variability: 24.2% (goal <36%) Average glucose is 285 mg/dL Frequency of hypoglycemia: o "Low" (54-69 mg/dL): 0% o "Very low" (<54 mg/dL): 0% o Nocturnal hypoglycemia? - No Frequency of hyperglycemic episodes: o "High" (181-250 mg/dL): 30% o "Very High" (>250 mg/dL): 66% Time in target range [...] polyneuropathy, with long-term current use of insulin ([facility]) - ICD9: 250.60, 357.2, V58.67, ICD10: E11.42, Z79.4 A1c is above goal of <8%. Due for recheck. Recent CGM data shows minimal data as was only xirnpj57% of the time in the past 2 [...] you, Susan Cuello PharmD documented in this encounterMedina Hospital05-25-2022 History of Present illness Narrative* Frankie Deng [...] to improve BS control. - CONSULT TO [facility] - PREGABALIN 75 MG [...] ICD9: 518.83, 799.02, ICD10: J96.11 Review of 2011 spirometry shows restrictive lung disease. Suspect hypoventilation of morbid obesitycontributes. - Performed oximetry to demonstrate continued need for O2. - CONSULT TO [facility] - OXYGEN CONCENTRATOR - PORTABLE OXYGEN 4. Restrictive lung disease - ICD9: 518.89, ICD10: J98.4 Cannot obtain weight due to debility. See above. Suspect hypoventilation of morbid obesity. - Will benefit from weight loss. - OXYGEN CONCENTRATOR - PORTABLE OXYGEN 5. Chronic heart failure with preserved ejection fraction (HFpEF) ([facility]) - ICD9: 428.9, ICD10: I50.32 Mild pulm HTN likely related to restrictive lung dz. Low normal EF related to effects of prior DC. May contribute to hypoxia and debility. - [...] Morbid obesity with BMI of 45.0-49.9, adult ([facility]) - ICD9: 278.01, V85.42, ICD10: E66.01, Z68.42 Will benefit from weight loss - Currently no home-based resource available for weight loss counseling. - OXYGEN CONCENTRATOR - PORTABLE OXYGEN 7. Recurrent UTI (urinary tract infection) - ICD9: 599.0, ICD10: N39.0 States she has no si/sx when she has UTI. - Pt tolerates cephalosporins for empirical treatment. - Informed pt to call [facility] if any suspicion of UTI so that treatment can be started LALA - Patient education for prevention given 8. Primary hypertension - ICD9: 401.9, ICD10: I10 - good control - Continue current medication(s) - Goal of BP <130/80 - TSH BLD 9. Coronary artery disease involving standing rock heart without angina pectoris, unspecified vessel or lesion type - ICD9: 414.01, ICD10: I25.10 Hx of DC. Contributor to debility. - Continue CVD event risk reduction regimen. - CONSULT TO [facility] 10. Mixed hyperlipidemia - [...] heart, lung, obesity dz. - CONSULT TO [facility] 13. Weakness of both legs - ICD9: 729.89, ICD10: R29.898 Desuetude and OA contribute. - PT. - CONSULT TO [facility] 14. DDD (degenerative disc [...] vaccine administered this visit? NO Previously received [facility] Orders (for patients currently active with Home Care): Physical Therapy eval for immobility Visit billing based on time: Yes, greater than 50% of the face to face time is on counseling and/orcare coordination, total minutes 110, counseling and/or care coordination included 100. FOLLOW UP ([facility] [id number]) F/U preferably 6-8 weeks, at least within [...] UTIs. Tests periodically with Azo strips. Has MANUAL QA TESTER starting. PT has not started. Needs PT. Needs O2 testing. Has hx of HF. Cannot stand long enough to get weights. Has recurrent LE cellulitis. Restricted to 1500 ml daily. Hx of DC with stents. Pt has chronic back pain. Has DDD and spondylolisthesis. Pt had attended pain clinic. Had been treated with [place]. Sleep is fair. Has DIYA; cannot tolerate [...] Readings: Date: Ht: 07/03/2021 165.1 cm (5' 5") 05/14/2021 165.1 cm (5' 5") 02/24/2021 165.1 cm (5' 5") 02/06/2021 165.1 cm (5' 5") Last Wt 09/19/21 : 127 kg (280 [...] from a helper. Setup or clean-up assistance [place] SETS UP or CLEANS UP; patient completes activity. [place] assists only prior to or following the activity. Supervision/touching assistance-[place] provides VERBAL CUES or TOUCHING/STEADYING assistance as patient completes activity. Assistance may be provided throughout the activity or intermittently. Partial/Moderate Assistance-[place] does LESS THAN HALF the effort. [place] lifts, holds or supports trunk or limbs, but provides less than half the effort. Substantial/Maximal Assistance [place] does MORE THAN HALF the effort. [place] lifts or holds trunk or limbs, but provides more than half the effort. Dependent - [place] does ALL of the effort. Patient does [...] RPh as Pharmacist (Primary Care) Sejal Calvin APRN.CNP as Referring (Family Practice) I am willing to follow Kimberly Patel advanced directives. Functional Ability/Safety Screen Was the [...] Patel DATE: March 22, 2022 PAGER/CONTACT #: [phone] documented in this encounterMedina Hospital05-23-2022 Miscellaneous Notes* Telephone Encounter - Lurdes Tovar [...] and advise. Agustin Rivera documented in this encounterMedina Hospital05-12-2022 Miscellaneous Notes* Telephone Encounter - KRISTIN Louis - 03/09/2022 2:12 PM EDT [facility] is currently providing your [...] wearing oxygen. You can add the SmartText '[id number]' to your office note to meet the [...] can continue processing your request. Thank you, [facility] [phone] fax documented in this encounterMedina Hospital05-12-2022 Miscellaneous Notes* Telephone Encounter - Renee Mojica APRN.HEATHER - 03/09/2022 1:57 PM EDT 12/19/21 office note reviewed PDMP website checked and validated. All prescriptions have been APPROPRIATELY filled. No suspiciousactivity was identified. 03/09/2022 by Renee Mojica APRN.FINANCIAL DEVELOPER * Telephone Encounter - Arelis Viramontes RN [...] you, Susan Cuello PharmD documented in this encounterMedina Hospital05-11-2022 NoteHNO ID: [id number] Author: Susan Cuello adelita Service: ? Author Type: Pharmacist Type: Progress [...] (HF sodium-free diet); does reportedly lightly salt romanian fries infrequently ? EXERCISE:?walks around inside of [...] Sleep Apnea) Chf (Congestive Heart Failure) ([facility]) Type 2 Diabetes Mellitus With Diabetic Polyneuropathy, With Long-Term Current Use of Insulin (Hcc) Coronary Arteriosclerosis in [place]tery Bipolar Disorder (Hcc) Mixed Hyperlipidemia Class 3 Severe Obesity With Serious Comorbidity and Body Mass Index (Bmi) of 45.0 to 49.9 in Adult ([facility]) Chronic Respiratory Failure With Hypoxia (Hcc) Chronic Obstructive Pulmonary Disease ([facility]) Physical Debility Recurrent Uti (Urinary Tract Infection) Primary Hypertension Stage 3b Chronic Kidney Disease ([facility]) Microalbuminuria PAST MEDICAL HISTORY Diagnosis Date - Asthma - CAD (coronary artery disease) s/p stent. last one >5 years ago - CHF (congestive heart failure) ([facility]) - COPD (chronic obstructive pulmonary disease) ([facility]) - DM2 (diabetes mellitus, type 2) ([facility]) - HTN (hypertension) - Mixed hyperlipidemia - Pneumonia due to COVID-19 virus 10/13/2020 ALLERGIES Allergen Reactions - Dilaudid [Hydromorp* Vomiting - Jardiance [Empaglif* Other: See Comments UTI - Metformin Diarrhea - Morphine Vomiting - Ondansetron Unknown - Penicillins Rash - Trulicity [Dulaglut* GI Upset Nausea/Vomiting MEDICATIONS/SUPPLIES: - Pill bottles are not present. - Adherence: denies missed doses. ? Organization System:?Neosens Pill-pack for all oral meds?(Divvy-Dose) ? Does the patient have diabetes supplies:?Yes ? CGM = [employer] 2; has mobile fern AND?reader device (via [employer]; $0 co (more content not included)...[facility] 03-08-2022 History of Present illness Narrative* Susan Kehr, [facility] - 03/08/2022 11:00 AM EDT Images from the original note were not included. Primary Care Pharmacy Visit Patient consents to pharmacy consult agreement. CC (Reason for Consult): Type 2 diabetes mellitus with diabetic polyneuropathy, with long-term current use of insulin ([facility]) - ICD9: 250.60, 357.2, V58.67, ICD10: E11.42, [...] (HF sodium-free diet); does reportedly lightly salt romanian fries infrequently EXERCISE: walks around inside of [...] Sleep Apnea) Chf (Congestive Heart Failure) ([facility]) Type 2 Diabetes Mellitus With Diabetic Polyneuropathy, With Long-Term Current Use of Insulin ([facility]) Coronary Arteriosclerosis in [place]tery Bipolar Disorder ([facility]) Mixed Hyperlipidemia Class 3 Severe Obesity With Serious Comorbidity and Body Mass Index (Bmi) of 45.0 to 49.9 in Adult ([facility]) Chronic Respiratory Failure With Hypoxia ([facility]) Chronic Obstructive Pulmonary Disease ([facility]) Physical Debility Recurrent Uti (Urinary Tract Infection) Primary Hypertension Stage 3b Chronic Kidney Disease ([facility]) Microalbuminuria PAST MEDICAL HISTORY Diagnosis Date Asthma CAD (coronary artery disease) s/p stent. last one >5 years ago CHF (congestive heart failure) ([facility]) COPD (chronic obstructive pulmonary disease) ([facility]) DM2 (diabetes mellitus, type 2) ([facility]) HTN (hypertension) Mixed hyperlipidemia Pneumonia due to [...] have diabetes supplies: Yes ? CGM = [employer] Gabrielle 2; has mobile fern & reader device (via [employer]; $0 co-pay) In current transition to new CGM supply company --> [employer]... ? Glucometer = One touch ultra 2 ? Lancing Device = [facility] generic ? Pen needles = BD uf micropen needles 5 mm, 32 gauge (previously had 6 mm size) Pharmacy: [facility] [id number] [place] [address] - [address] - [phone] ? Divvy-Dose for maintenance meds ? [facility] emergent / short term meds Rx coverage: Payor: [facility] MEDICARE / Plan: [facility] DUAL COMPLETE HMO SNP / Product Type: [...] (COMFORT EZ PEN NEEDLES) 32 gauge x 3/16" ndle Use as directed to inject insulin [...] mouth twice daily. WALKER ROLLATOR SEAT WITH 6" WHEELS - RED Walker rollator with seat Rx meds not listed in EPIC: No OTCs: No Herbals/Supplements: No Renally dosed appropriately? Yes Drug-drug interactions: none identified On ZAHIRA/ARB: yes On Statin: yes GLYCEMIC CONTROL: Glucometer/CGM present at visit: Yes; [employer] 2 info shared remotely Summary of CGM Findings: CGM recording is adequate for interpretation; glucose variability: 17.5% (goal <36%) Average glucose is 253 mg/dL Frequency of hypoglycemia: o "Low" (54-69 mg/dL): 0% o "Very low" (<54 mg/dL): 0% o Nocturnal hypoglycemia? - No Frequency of hyperglycemic episodes: o "High" (181-250 mg/dL): 41% o "Very High" (>250 mg/dL): 52% Time in target range [...] The 10-year ASCVD risk score (Dianajoann MORGAN JrBrandi, et al., 2013) is: 11.6% Values used to calculate the score: Age: 66 years Sex: Female Is Non- : No Diabetic: Yes Tobacco smoker: No Systolic Blood Pressure: 118 mmHg Is BP treated: Yes HDL Cholesterol: 41 mg/dL Total Cholesterol: 179 mg/dL PHARMACOTHERAPY ASSESSMENT/PLAN 1.) Type 2 diabetes mellitus with diabetic polyneuropathy, with long-term current use of insulin ([facility]) - ICD9: 250.60, 357.2, V58.67, ICD10: E11.42, [...] you, Susan Cuello PharmD documented in this encounterMedina Hospital05-03-2022 Miscellaneous Notes* Telephone Encounter - Susan Cuello [...] her directly, please advise. documented in this encounterMedina Hospital05-02-2022 Instructions* Patient Instructions* Deniz Silva MD - [...] your risk for heart failure. Developed by [employer]. Published by [employer]. Copyright 2014 [employer] and/or one of its subsidiaries. All rights reserved. documented in this encounterMedina Hospital05-02-2022 History of Present illness Narrative* Deniz Silva MD - 02/27/2022 2:06 PM EDT Images from the original note were not included. [facility] Virtual Visit EST Date: February 27, 2022 [...] routine follow-up. Patient was previously followed at [facility] but [facility] moving to the [facility]. Since her initial visit in December 2020, patient was hospitalized at [facility] in September 2021 with weakness and lethargy [...] therapy. She does not currently have a distance learning program coordinator and has held off at this time [...] >5 years ago CHF (congestive heart failure) ([facility]) COPD (chronic obstructive pulmonary disease) ([facility]) DM2 (diabetes mellitus, type 2) ([facility]) HTN (hypertension) Mixed hyperlipidemia Pneumonia due to [...] (COMFORT EZ PEN NEEDLES) 32 gauge x 3/16" ndle Use as directed to inject insulin [...] as needed (constipation). WALKER ROLLATOR SEAT WITH 6" WHEELS - RED Walker rollator with seat [...] and apex. Ejection fraction 39%. Cardiac catheterization: [facility] Left Heart Catheterization, 08/21/2012: 0% in-stent restenosis in the LAD. Ejection fraction 45to 50% with hypokinesis of the distal anteroapical wall. [facility] Left Heart Catheterization, 05/01/2011: 80% stenosis in [...] routine follow-up. Patient was previously followed at [facility] but established care with me in December 2020 after moving to the [facility]. PLAN AND RECOMMENDATIONS: 1. Chronic diastolic [...] leave the house to establishcare with a distance learning program coordinator for further evaluation. Some elements of A&P [...] answered. Deniz Silva MD documented in this encounterMedina Hospital05-02-2022 Miscellaneous Notes* Telephone Encounter - Ellie Walters MA - 02/27/2022 1:57 PM EDT Per patient request I contacted [facility] which is like a pill pack pharmacy and advised them per Dr Silva that patient is no longer needing plavix and was discontinued today and to remove from pill pack. Spoke with Viji at [facility] and she was able to remove plavix from pill package. documented in this encounterMedina Hospital05-02-2022 Nurse Note* Ellie Walters MA - 02/27/2022 11:58 AM EDT Patient has no cardiac complaints today. Ellie Frankie SURVEILLANCE MONITOR documented in this encounterMedina Hospital04-29-2022 Miscellaneous Notes* Telephone Encounter - Renee Walters LPN - 02/24/2022 9:30 AM EDT Patient's request for medication is as follows: Pending Prescriptions Disp Refills EZETIMIBE 10 MG TABLET 90 tablet 0 Sig: TAKE 1 TABLET BY MOUTH EVERY DAY PETE: Yes Last visit 02/21/2021. Next visit 02/27/2022 phone call visit. Prescription(s) as above. Please process accordingly. Renee Walters LPN documented in this [facility]04-25-2022 Miscellaneous Notes* Telephone Encounter - Lurdes Tovar [...] advise. Lurdes Tovar Ma documented in this encounterMedina Hospital04-20-2022 NoteHNO ID: [id number] Author: Susan Cuello RPh Service: ? Author [...] weeks) ? Sodium Intake:?does NOT add; uses Dash (HF sodium-free diet); does reportedly lightly salt romanian fries infrequently ? EXERCISE:?walks around inside of [...] Sleep Apnea) Chf (Congestive Heart Failure) ([facility]) Type 2 Diabetes Mellitus With Diabetic Polyneuropathy, With Long-Term Current Use of Insulin ([facility]) Coronary Arteriosclerosis in [place]tery Bipolar Disorder ([facility]) Mixed Hyperlipidemia Class 3 Severe Obesity With Serious Comorbidity and Body Mass Index (Bmi) of 45.0 to 49.9 in Adult ([facility]) Chronic Respiratory Failure With Hypoxia ([facility]) Chronic Obstructive Pulmonary Disease ([facility]) Physical Debility Recurrent Uti (Urinary Tract Infection) Primary Hypertension Stage 3b Chronic Kidney Disease ([facility]) Microalbuminuria PAST MEDICAL HISTORY Diagnosis Date - Asthma - CAD (coronary artery disease) s/p stent. last one >5 years ago - CHF (congestive heart failure) ([facility]) - COPD (chronic obstructive pulmonary disease) ([facility]) - DM2 (diabetes mellitus, type 2) ([facility]) - HTN (hypertension) - Mixed hyperlipidemia - [...] ? CGM = Free (more content not included)...[facility]04-20-2022 History of Present illness Narrative* Susan Cuello, [facility] - 02/15/2022 9:30 AM EDT [...] (HF sodium-free diet); does reportedly lightly salt romanian fries infrequently EXERCISE: walks around inside of [...] Sleep Apnea) Chf (Congestive Heart Failure) ([facility]) Type 2 Diabetes Mellitus With Diabetic Polyneuropathy, With Long-Term Current Use of Insulin ([facility]) Coronary Arteriosclerosis in [place]tery Bipolar Disorder ([facility]) Mixed Hyperlipidemia Class 3 Severe Obesity With Serious Comorbidity and Body Mass Index (Bmi) of 45.0 to 49.9 in Adult ([facility]) Chronic Respiratory Failure With Hypoxia ([facility]) Chronic Obstructive Pulmonary Disease ([facility]) Physical Debility Recurrent Uti (Urinary Tract Infection) Primary Hypertension Stage 3b Chronic Kidney Disease ([facility]) Microalbuminuria PAST MEDICAL HISTORY Diagnosis Date Asthma CAD (coronary artery disease) s/p stent. last one >5 years ago CHF (congestive heart failure) ([facility]) COPD (chronic obstructive pulmonary disease) ([facility]) DM2 (diabetes mellitus, type 2) ([facility]) HTN (hypertension) Mixed hyperlipidemia Pneumonia due to COVID-19 virus 10/13/2020 ALLERGIES Allergen Reactions Dilaudid [Hydromorp* Vomiting Jardiance [Empaglif* Other: See Comments UTI Metformin Diarrhea Morphine Vomiting Ondansetron Unknown Penicillins Rash Trulicity [Dulaglut* GI Upset Nausea/Vomiting MEDICATIONS/SUPPLIES: Pill bottles are not present. Adherence: reports missed doses. o Reports missing Humalog ~1-2 times per week with a meal Organization System: Neosens Pill-pack for all oral meds (Divvy-Dose) Does the patient have diabetes supplies: requesting new test strips ? CGM = [employer] 2; has mobile fern & reader device (via [facility]; $0 co-pay) In current transition to new CGM supply company --> [employer] [facility] [employer]... ? Glucometer = One touch ultra 2 ? Lancing Device = [facility] generic ? Pen needles = BD uf micropen needles 5 mm, 32 gauge (previously had 6 mm size) [facility] [id number] [place] [address] [address] [facility] - [phone] ? Divvy-Dose for maintenance meds ? [facility] and emergent / short term meds Rx coverage: Payor: [facility] MEDICARE / Plan: [facility] DUAL COMPLETE HMO SNP / Product Type: [...] MOUTH EVERY DAY flash glucose scanning reader ([employer] GABRIELLE 2 READER) 1 Each. Use as [...] E11.9 Lancing Device (LANCING DEVICE WITH LANCETS) [facility] Use as directed to check blood sugar 3 times daily, insulin: yes, E11.9 linaGLIPtin (TRADJENTA) 5 mg tab Take 1 tablet by mouth once daily. confirmed losartan (COZAAR) 50 mg tablet Take 1 tablet by mouth once daily. metoprolol succinate ER (TOPROL XL) 25 mg 24 hr tablet Take 1 tablet by mouth once daily. Icfaqcgvdtmny-Cwlbqdqo-Yoqgks (MULTIVITAMIN 50 PLUS) tab Take 1 tablet by mouth once daily. mupirocin (BACTROBAN) 2 % ointment as needed. nitroglycerin sublingual (NITROQUICK) 0.4 mg SL tablet Dissolve 1 tablet under the tongue as neededfor Chest Pain. If no pain relief call 911. omeprazole (PRILOSEC) 20 mg capsule Take 1 capsule by mouth once daily. pen needle, diabetic (COMFORT EZ PEN NEEDLES) 32 gauge x 3/16" ndle Use as directed to inject insulin [...] twice daily. confirmed WALKER ROLLATOR SEAT WITH 6" WHEELS - RED Walker rollator with seat [...] you, Susan Cuello PharmD documented in this encounterMedina Hospital04-05-2022 NoteHNO ID: [id number] Author: Susan Cuello RPh Service: ? Author [...] has not yet received info from [facility] [employer] [facility] [employer] re: CGM status. Chart notes were previously sent. Pt advised to f/u with [facility]. - 01/18/22 - Cardio nurse visit - 01/17/22 - [employer] SUPERVISOR advised pharmD that appeal was done for pts novolog and approved until 2021. SUBJECTIVE: - Reports her CGM sensors were approved and [facility] [employer] [facility] mailed these o Has not yet been [...] (HF sodium-free diet); does reportedly lightly salt romanian fries infrequently ? EXERCISE:?walks around inside of [...] Sleep Apnea) Chf (Congestive Heart Failure) ([facility]) Type 2 Diabetes Mellitus With Diabetic Polyneuropathy, With Long-Term Current Use of Insulin ([facility]) Coronary Arteriosclerosis in [place]tery Bipolar Disorder ([facility]) Mixed Hyperlipidemia Class 3 Severe Obesity With Serious Comorbidity and Body Mass Index (Bmi) of 45.0 to 49.9 in Adult ([facility]) Chronic Respiratory Failure With Hypoxia ([facility]) Chronic Obstructive Pulmonary Disease ([facility]) Physical Debility Recurrent Uti (Urinary Tract Infection) Primary Hypertension Stage 3b Chronic Kidney Disease ([facility]) Microalbuminuria PAST MEDICAL HISTORY Diagnosis Date - Asthma - CAD (coronary artery disease) s/p stent. last one >5 years ago - CHF (congestive heart failure) ([facility]) - COPD (chronic obstructive pulmonary disease) ([facility]) - DM2 (diabetes mellitus, type 2) ([facility]) - HTN (hypertension) - Mixed hyperlipidemia - Pneumonia due to COVID-19 virus 10/13/2020 ALLERGIES Allergen Reactions - Dilaudid [Hydromorp* Vomiting - Jardiance [Empaglif* Other: See Comments U (more content not included)...[facility]04-05-2022 Miscellaneous Notes* Telephone Encounter - Scarlet Morse APRN.FINANCIAL DEVELOPER - 01/31/2022 1:06 PM EDT The following approved medication requests have been transmitted electronically. Pending Prescriptions Disp Refills PREGABALIN 75 MG CAPSULE 60 capsule 0 Sig: Take 1 capsule by mouth twice daily for 30 days. LIN Class: C-V PETE: No PDMP checked and validated. All prescriptions have been appropriately filled. No suspicious activity was identified. Scarlet Morse APRN.HEATHER * Telephone Encounter - Moe Sawyer - [...] and advise. Moe Sawyer documented in this encounterMedina Hospital03-28-2022 Miscellaneous Notes* Telephone Encounter - Susan Cuello RPh - 01/23/2022 4:30 PM EDT Pt contacted office requesting to speak with Angela (myself) directly. Returned pt's call who provided an update that her insurance has not yet received CGM request from [employer]. Advised pt that her recent chart notes were faxed to [employer] by both myself and Dr. Meyer's office on 01/06/22 and 01/12/22, respectively. Encouraged pt to contact [employer] as they may be awaiting confirmation from her (phone: ) of which she plans to do at this time. Thank you, Susan Cuello PharmD documented in this encounterMedina Hospital03-23-2022 Nurse Note* Wild House, RN - 01/18/2022 8:31 AM EDT Heart Failure [facility] Telephone Visit: Kimberly Patel has consented to this tele-health visit. She is unable to leave the house d/t deconditioning and poor mobility. She is scheduled with Dr. Deng, [place] visit on 02/03/22. Per patient, states that she was recently at [facility], treated for UTI. Her Lasix was previously [...] visit 273? When discharged from [facility] Weight today N/A Do you have any [...] directed? Yes Have you been maintaining a 1545-6775 mg of sodium diet? No, fast food, [...] > 50% counseling and coordination of care Wild House RN January 18, 2022 8:31 AM documented in this encounterMedina Hospital03-18-2022 NoteHNO ID: [id number] Author: Susan Cuello [facility] Service: ? Author Type: Pharmacist [...] faxed to pt's new CGM supply company, [employer] SUBJECTIVE: - Doing well - Reports starting [...] (HF sodium-free diet); does reportedly lightly salt romanian fries infrequently ? EXERCISE:?walks around inside of [...] Sleep Apnea) Chf (Congestive Heart Failure) ([facility]) Type 2 Diabetes Mellitus With Diabetic Polyneuropathy, With Long-Term Current Use of Insulin ([facility]) Coronary Arteriosclerosis in [place]tery Bipolar Disorder ([facility]) Mixed Hyperlipidemia Class 3 Severe Obesity With Serious Comorbidity and Body Mass Index (Bmi) of 45.0 to 49.9 in Adult ([facility]) Chronic Respiratory Failure With Hypoxia ([facility]) Chronic Obstructive Pulmonary Disease ([facility]) Physical Debility Recurrent Uti (Urinary Tract Infection) Primary Hypertension Stage 3b Chronic Kidney Disease ([facility]) Microalbuminuria PAST MEDICAL HISTORY Diagnosis Date - Asthma - CAD (coronary artery disease) s/p stent. last one >5 years ago - CHF (congestive heart failure) ([facility]) - COPD (chronic obstructive pulmonary disease) ([facility]) - DM2 (diabetes mellitus, type 2) ([facility] [facility] - HTN (hypertension) - Mixed hyperlipidemia - Pneumonia due to COVID-19 virus 10/13/2020 ALLERGIES Allergen Reactions - Dilaudid [Hydromorp* Vomiting - Jardiance [Empaglif* Other: See Comments UTI - Metformin Diarrhea - Morphine Vomiting - Ondansetron Unknown - Penicillins Rash - Trulicity [Dulaglut* GI Upset Nausea/Vomiting MEDICATIONS/SUPPLIES: - Pill bottles are not present. - Adherence: denies missed doses. ? Org (more content not included)...[facility]03-11-2022 NoteHNO ID: [id number] Author: Susan Cuello [facility] Service: ? Author Type: Pharmacist [...] done fingerpricks since then. (previously obtained via [employer]). States an order is currently in process via [facility] (or [facility]); pt not certain of which company. [...] (HF sodium-free diet); does reportedly lightly salt romanian fries infrequently ? EXERCISE:?walks around inside of [...] Sleep Apnea) Chf (Congestive Heart Failure) ([facility]) Type 2 Diabetes Mellitus With Diabetic Polyneuropathy, With Long-Term Current Use of Insulin ([facility]) Coronary Arteriosclerosis in [place] Bipolar Disorder ([facility]) Mixed Hyperlipidemia Class 3 Severe Obesity With Serious Comorbidity and Body Mass Index (Bmi) of 45.0 to 49.9 in Adult ([facility]) Chronic Respiratory Failure With Hypoxia ([facility]) Chronic Obstructive Pulmonary Disease ([facility]) Physical Debility Recurrent Uti (Urinary Tract Infection) Primary Hypertension Stage 3b Chronic Kidney Disease ([facility]) Microalbuminuria PAST MEDICAL HISTORY Diagnosis Date - Asthma - CAD (coronary artery disease) s/p stent. last one >5 years ago - CHF (congestive heart failure) ([facility]) - COPD (chronic obstructive pulmonary disease) ([facility]) - DM2 (diabetes mellitus, type 2) ([facility]) - HTN (hypertension) - Mixed hyperlipidemia - Pneumonia due to COVID-19 virus 10/13/2020 ALLERGIES Allergen Reactions - Dilaudid [Hydromorp* Vomiting - Jardiance [Empaglif* Other: See Comments UTI - Metformin Diarrhea - Morphine Vomiting - Ondansetron Unknown - Penicillins Rash - Trulicity [Dulaglut* GI Upset Nausea/Vomiting MEDICATIONS/SUPPLIES: - Pill bottles are not present. - Adherence: reports mi (more content not included)...[facility] 12-19-2021 NoteHNO ID: [id number] Author: Moe Meyer MD Service: ? Author [...] go to her home - CONSULT TO [facility] 2. Recurrent UTI (urinary [...] ICD9: 799.3, ICD10: R53.81 - CONSULT TO [facility] - CONSULT TO [facility] 5. Generalized weakness - ICD9: 780.79, ICD10: R53.1 6. Class 3 severe obesity due to excess calories with serious comorbidity and body mass index (BMI) of 45.0 to 49.9 in adult (HCC) - ICD9: 278.01, V85.42, ICD10: E66.01, Z68.42 - CONSULT TO [facility] - CONSULT TO [facility] 7. Chronic respiratory failure with hypoxia (HCC) - ICD9: 518.83, 799.02, ICD10: J96.11 Need o2 recertification LALA - CONSULT TO [facility] 8. Chronic combined systolic and diastolic congestive heart failure (HCC) - ICD9: 428.42, 428.0, ICD10: I50.42 - CONSULT TO [facility] Time spent: 35 mins There are no Patient Instructions on file for this visit. Moe Meyer [facility]02-18-2022 NoteHNO ID: [id number] Author: Susan Cuello RPh Service: ? Author [...] Recheck A1c ordered SUBJECTIVE: - Now using [employer] 2 mobile fern as reader device; her daughter [...] (HF sodium-free diet); does reportedly lightly salt romanian fries infrequently ? EXERCISE:?walks around inside of [...] Apnea) Dyspnea Chf (Congestive Heart Failure) ([facility]) Type 2 Diabetes Mellitus With Diabetic Polyneuropathy, With Long-Term Current Use of Insulin ([facility]) Lower Extremity Cellulitis Coronary Arteriosclerosis in [place] Bipolar Disorder ([facility]) Mixed Hyperlipidemia Morbid Obesity Due to Excess Calories ([facility]) Acute Kidney Injury Superimposed On Chronic Kidney Disease ([facility]) Class 3 Severe Obesity With Serious Comorbidity and Body Mass Index (Bmi) of 45.0 to 49.9 in Adult ([facility]) Chronic Respiratory Failure With Hypoxia ([facility]) Chronic Obstructive Pulmonary Disease ([facility]) Physical Debility Uti (Urinary Tract Infection) Bacteremia Neuropathy Primary Hypertension Stage 3b Chronic Kidney Disease ([facility]) Microalbuminuria PAST MEDICAL HISTORY Diagnosis Date - Asthma - CAD (coronary artery disease) s/p stent. last one >5 years ago - CHF (congestive heart failure) ([facility] - COPD (chronic obstructive pulmonary disease) ([facility]) - DM2 (diabetes mellitus, type 2) ([facility] - HTN (hypertension) - Mixed hyperlipidemia - [...] patient have diabetes supplies:?Yes ? CGM = [employer] (more content not included)...[facility] 10-12-2021 History of Past illness Narrative* Problem [...] of this encounter (statuses as of 01/19/2022) [facility] History of Past illness Narrative* Problem Noted [...] of this encounter (statuses as of 01/23/2022) [facility] of Past illness Narrative* Problem Noted [...] of this encounter (statuses as of 01/31/2022) [facility] of Past illness Narrative* Problem Noted [...] of this encounter (statuses as of 02/15/2022) [facility] of Past illness Narrative* Problem Noted [...] of this encounter (statuses as of 02/20/2022) [facility] Past illness Narrative* Problem Noted [...] of this encounter (statuses as of 02/24/2022) [facility] Past [facility] Narrative* Problem Noted [...] of this encounter (statuses as of 02/27/2022) [facility] Past [facility] Narrative* Problem Noted [...] of this encounter (statuses as of 02/27/2022) [facility] Narrative* Problem Noted [...] of this encounter (statuses as of 02/28/2022) [facility] Narrative* Problem Noted [...] of this encounter (statuses as of 03/08/2022) [facility] Narrative* Problem Noted [...] of this encounter (statuses as of 03/09/2022) [facility] Narrative* Problem Noted [...] of this encounter (statuses as of 03/09/2022) [facility] Narrative* Problem Noted [...] of this encounter (statuses as of 03/22/2022) [facility] Narrative* Problem Noted [...] of this encounter (statuses as of 03/23/2022) [facility] Narrative* Problem Noted [...] of this encounter (statuses as of 03/24/2022) [facility] Narrative* Problem Noted [...] of this encounter (statuses as of 03/25/2022) [facility] Narrative* Problem Noted [...] of this encounter (statuses as of 03/28/2022) [facility] Narrative* Problem Noted [...] of this encounter (statuses as of 03/28/2022) [facility] Narrative* Problem Noted [...] of this encounter (statuses as of 04/11/2022) [facility] Narrative* Problem Noted [...] of this encounter (statuses as of 04/13/2022) [facility] Narrative* Problem Noted [...] of this encounter (statuses as of 04/14/2022) [facility] Narrative* Problem Noted [...] of this encounter (statuses as of 04/17/2022) [facility] Narrative* Problem Noted [...] of this encounter (statuses as of 05/10/2022) [facility] Narrative* Problem Noted [...] of this encounter (statuses as of 05/13/2022) [facility] Narrative* Problem Noted [...] of this encounter (statuses as of 05/24/2022) [facility] Narrative* Problem Noted [...] of this encounter (statuses as of 05/30/2022) [facility] Narrative* Problem Noted [...] of this encounter (statuses as of 06/09/2022) [facility] Narrative* Problem Noted [...] of this encounter (statuses as of 06/26/2022) [facility] Narrative* Problem Noted [...] of this encounter (statuses as of 06/26/2022) [facility] Narrative* Problem Noted [...] of this encounter (statuses as of 06/26/2022) [facility] Narrative* Problem Noted [...] of this encounter (statuses as of 06/27/2022) [facility] Narrative* Problem Noted [...] of this encounter (statuses as of 06/30/2022) [facility] Narrative* Problem Noted [...] of this encounter (statuses as of 07/05/2022) [facility] N[facility]* Problem Noted [...] of this encounter (statuses as of 07/05/2022) [facility] Narrative* Problem Noted [...] of this encounter (statuses as of 07/06/2022) [facility] Narr[facility]* Problem Noted [...] of this encounter (statuses as of 07/07/2022) [facility]* Problem Noted [...] of this encounter (statuses as of 07/17/2022) [facility]* Problem Noted [...] of this encounter (statuses as of 07/20/2022) [facility] Narr[facility]* Problem Noted [...] of this encounter (statuses as of 07/24/2022) [facility] Narrative* Problem Noted [...] of this encounter (statuses as of 07/27/2022) [facility]* Problem Noted [...] of this encounter (statuses as of 08/02/2022) [facility]* Problem Noted [...] of this encounter (statuses as of 08/04/2022) [facility]* Problem Noted [...] of this encounter (statuses as of 08/07/2022) [facility]* Problem Noted [...] of this encounter (statuses as of 08/10/2022) [facility]* Problem Noted [...] of this encounter (statuses as of 08/11/2022) [facility]* Problem Noted [...] of this encounter (statuses as of 2022) [facility]* Problem Noted [...] of this encounter (statuses as of 08/17/2022) [facility] Narrative* Problem Noted [...] of this encounter (statuses as of 08/21/2022) [facility] Narrative* Problem Noted [...] of this encounter (statuses as of 08/23/2022) [facility] Narrative* Problem Noted [...] of this encounter (statuses as of 08/26/2022) [facility]* Problem Noted [...] of this encounter (statuses as of 08/29/2022) [facility]arr[facility]* Problem Noted [...] of this encounter (statuses as of 08/29/2022) [facility]* Problem Noted [...] of this encounter (statuses as of 08/30/2022) [facility]* Problem Noted [...] of this encounter (statuses as of 08/31/2022) [facility]* Problem Noted [...] of this encounter (statuses as of 09/01/2022) [facility]* Problem Noted [...] of this encounter (statuses as of 09/08/2022) [facility]* Problem Noted [...] of this encounter (statuses as of 09/08/2022) [facility]* Problem Noted [...] of this encounter (statuses as of 09/12/2022) [facility]* Problem Noted [...] of this encounter (statuses as of 09/25/2022) [facility]* Problem Noted [...] of this encounter (statuses as of 09/28/2022) [facility]* Problem Noted [...] of this encounter (statuses as of 09/29/2022) [facility]* Problem Noted [...] of this encounter (statuses as of 10/02/2022) [facility]* Problem Noted [...] of this encounter (statuses as of 10/04/2022) [facility]* Problem Noted [...] of this encounter (statuses as of 10/06/2022) [facility]* Problem Noted [...] of this encounter (statuses as of 10/06/2022) [facility]* Problem Noted [...] of this encounter (statuses as of 10/12/2022) [facility]* Problem Noted [...] of this encounter (statuses as of 11/02/2022) [facility]* Problem Noted [...] of this encounter (statuses as of 11/02/2022) [facility]* Problem Noted [...] of this encounter (statuses as of 11/03/2022) [facility]* Problem Noted [...] of this encounter (statuses as of 11/09/2022) [facility]* Problem Noted [...] of this encounter (statuses as of 11/10/2022) [facility]* Problem Noted [...] of this encounter (statuses as of 11/20/2022) [facility]* Problem Noted [...] of this encounter (statuses as of 11/29/2022) [facility]* Problem Noted [...] of this encounter (statuses as of 12/07/2022) [facility]* Problem Noted [...] on chronic 11/28/2020 08/26/2021 Lower extremity cellulitis 11/28/202012/192 Present for a month 10/17/2020 08/26/2021 Pneumonia due to COVID-19 virus 10/13/2020 08/26/2021 Heart disease (organic) 05/31/2012 08/26/20 21 Dyspnea 05/31/2012 12/19/2021 documented as of this encounter (statuses as of 12/19/2022) [facility] Narrative* Problem Noted [...] of this encounter (statuses as of 12/25/2022) [facility] N[facility]* Problem Noted [...] of this encounter (statuses as of 01/05/2023) [facility]* Problem Noted [...] of this encounter (statuses as of 01/09/2023) [facility] N[facility]* Problem Noted [...] of this encounter (statuses as of 01/10/2023) [facility] Narrative* Problem Noted [...] of this encounter (statuses as of 01/10/2023) [facility] Narr[facility]* Problem Noted [...] of this encounter (statuses as of 01/10/2023) [facility] N[facility]* Problem Noted [...] of this encounter (statuses as of 01/16/2023) [facility]* Problem Noted [...] of this encounter (statuses as of 01/16/2023) [facility]* Problem Noted [...] of this encounter (statuses as of 01/17/2023) [facility]* Problem Noted [...] of this encounter (statuses as of 01/26/2023) [facility]* Problem Noted [...] of this encounter (statuses as of 01/30/2023) [facility] N[facility]* Problem Noted [...] of this encounter (statuses as of 02/07/2023) [facility] of Present illness Narrative* Saleem Carrasco RN - 10/11/2021 2:25 PM EST [facility] * Stephanie Marquez RD, LD - 10/11/2021 [...] lb 11.2 oz (129.6 kg) Height: 5' 4" (1.626 m) 24HR INTAKE/OUTPUT: Intake/Output Summary (Last [...] call with any questions or concerns. Hema Giron APRN, [facility] [phone] office Patient is independently assessed and examined and all data and notes are reviewed.I reviewed the STATOR WINDER notes and findings I agree with her assessment and plan. * Saniya Oshea APRN - FINANCIAL DEVELOPER - 10/10/2021 12:45 PM EST Images from [...] mg Oral BID LABS: CBC: Recent Labs 10/08/21 0344 10/09/21 0555 10/10/21 0345 WBC 9.9 10.6 5.5 RBC 3.03* 3.22* 3.02* HGB 8.1* 8.8* 8.2* HCT 25.3* 27.0* 25.5* MCV 83.4 83.9 84.3 RDW 16.0* 16.0* 16.3* PLT 292 335 326 BMP: Recent Labs 10/08/21 0344 10/09/21 0555 10/10/21 0345 NA 135 140 136 K 5.0 5.2* 5.2* CL 105 106 106 CO2 29 29 30 BUN 35* 34* 30* CREATININE 1.65* 1.48* 1.42* GLUCOSE 136* 143* 206* CALCIUM 8.8 9.3 8.6 ANIONGAP 2* 4 0* Procalcitonin: Lab Results Component Value Date PROCAL 10/06/2021 Objective: Vitals: BP 127/62 Pulse 74 Temp 97.1 F (36.2 C) (Temporal) Resp 17 Ht 5' 4" (1.626 m) Wt 285 lb 11.2 oz [...] dietgelatin). Pt reports appetite/ PO intakes are "improving." Per chart review, pt to discharge to rehabilitation facility. Pt reports intermittent nausea which may be related to time of medication administration, does not appear to be impacting appetite. Pt denies questions/ concern regarding currentdiet order. Pt reports she "does not do well on a controlled diet." RD attached education materials regarding carbohydrate counting and diabetes to discharge instructions. Should patient be motivated and interested- would recommend MD referral to outpatient group forcontinued education and support. Referral and appointments to be made by [phone] Malnutrition Assessment: Malnutrition Status: No malnutrition Context: Chronic Illness Findings of the 6 clinical characteristics of malnutrition: Energy Intake: Mild decrease in energy intake (Comment) (poor intake DRYWALL TAPER d.t UTI and AMS) Weight Loss: No significant weight loss Body Fat Loss: Unable to assess (deferred) Muscle Mass Loss: Unable to assess (deferred) Fluid Accumulation: No significant fluid accumulation Psychological Operations Specialist Strength: Not Performed Estimated Daily Nutrient Needs: Energy (kcal): 2060-0281 (11-14 kcal/kg CBW); Weight Used for Energy Requirements: Current (129 kg) Protein (g): 65-82 (1.2-1.5 g protien/kg IBW); Weight Used for Protein Requirements: Eugene (54.45 kg) Fluid (ml/day): per MD; Method [...] Fat/Low Chol/High Fiber/CLARENCE Anthropometric Measures: Height: 5' 4" (162.6 cm) Current Body Weight: 285 lb (129.3 kg) (10/10) Admission Body Weight: 300 lb (136.1 kg) (stated 10/01/21) Usual Body Weight: 280 lb (127 kg) (noted 08/26/21 per EMR review) Eugene Body Weight: 120 lbs; % Eugene Body Weight 237.5 % BMI: 48.9 Adjusted Body Weight: ; No Adjustment Adjusted BMI: BMI Categories: Obese Class 3 (BMI 40.0 or greater) Nutrition Diagnosis: Impaired nutrient utilization related to cardiac dysfunction, endocrine dysfuntion as evidenced by lab values Nutrition Interventions: Food and/or Nutrient Delivery: Continue Current Diet Nutrition Education/Counseling: Education not appropriate (Pt reports she "does not do well" on a controlled diet) Coordination of Nutrition [...] Consult: IMS PCP: Moe Meyer MD [employer] Refrigerated Truck Driver: no ASSESSMENT: Type 2 diabetes with hyperglycemia [...] Regimen: Lantus 64 units bid and Humalog --30 Was on trulicity - GI effects with [...] lb 11.2 oz (129.6 kg) Height: 5' 4" (1.626 m) Physical Exam Constitutional: General: She [...] Tomography ACCESSION EXAM DATE/TIME PROCEDURE ORDERING PROVIDER [id number] 10/02/2021 02:[address] Head or Brain w/o QUIQUE ROBERTS Contrast CPT code 06558 Reason For Exam (CT Head or Brain [...] Radiology ACCESSION EXAM DATE/TIME PROCEDURE ORDERING PROVIDER [id number] 10/02/2021 00:32 EST CR Chest Portable Beverley CANDY QUIQUE CPT code 03710 Reason For Exam (CR Chest Portable) sepsis [...] Tomography ACCESSION EXAM DATE/TIME PROCEDURE ORDERING PROVIDER [id number] 10/02/2021 02:[address] Abdomen/Pelvis (No Beverley BlueMANOJ QUIQUE PO, No IV) CPT code 46501 Reason For Exam (CT Abdomen/Pelvis (No PO, [...] the date of this note. * Petrona Rome Guicho, DRYWALL TAPER - 10/10/2021 9:35 AM EST Physical Therapy Facility/Department: [facility] Daily Treatment Note NAME: Kimberly Patel : 1955 Date of Service: 10/10/2021 Discharge Recommendations: Subacute/Fdc Facility Assessment Assessment: Pt presents with slight [...] cues for sequence and initiation AM-PAC Score [facility] Inpatient Mobility Raw Score : 12 (10/10/21927) AM-PAC Inpatient T-Scale Score : 35.33 (10/10/21927) Mobility Inpatient CMS 0-100% Score: 68.66 (10/10/21927) Mobility Inpatient [facility] G-Code Modifier : CL (10/10/21927) Goals Short [...] Minutes: 8 Minutes (1 ther act) Petrona Lindo DRYWALL TAPER * Morro Rome Bhumika - 10/10/2021 8:42 AM EST Occupational Therapy Facility/Department: [facility] Daily Treatment Note NAME: Kimberly Patel : 1955 Date of Service: 10/10/2021 Discharge Recommendations: Subacute/Fdc Facility, Patient would benefit from continued therapy [...] Diagnosis(es): The primary encounter diagnosis was Septicemia ([facility]). Diagnoses of Altered mental status, unspecified altered [...] AM-PAC Inpatient Daily Activity Raw Score: 15 (10/10/215) AM-PAC Inpatient ADL T-Scale Score : 34.69 (10/10/211004) ADL Inpatient CMS 0-100% Score: 56.46 (10/10/215) ADL Inpatient CMS G-Code Modifier : CK (10/10/211004) Goals Short term goals Time Frame for Short term goals: 5 visits Short term goal 1: Pt will complete transfer to [facility] with mod A.-na Short term goal 2: [...] Treatment Minutes: 17 Minutes (1 ADL) Morro Rome Bai * Irais Ramírez MD - 10/09/2021 11:16 AM EST [facility] Progress Note Subjective/ 66 y.o. [...] 140/68 Pulse: 81 81 83 82 Resp: 20 18 18 17 Temp: 97.4 F (36.3 [...] warm, moist, no rashes Data/ Recent Labs 10/07/21 0418 10/08/21 0344 10/09/21 0555 WBC 12.1* 9.9 10.6 HGB 8.2* 8.1* 8.8* HCT 25.6* 25.3* 27.0* MCV 84.3 83.4 83.9 PLT 236 292 335 Recent Labs 10/07/21 0418 10/08/21 0344 10/09/21 0555 NA 138 135 140 [...] changes We will follow * Saniya Oshea, DARREL - FINANCIAL DEVELOPER - 10/09/2021 11:09 AM EST Images from [...] mg Oral BID LABS: CBC: Recent Labs 10/07/2141710/08/214 10/09/21 0555 WBC 12.1* 9.9 10.6 RBC [...] (35.7 C) (Temporal) Resp 18 Ht 5' 4.02" (1.626 m) Wt 286 lb 14.4 oz [...] warm, moist, no rashes Data/ Recent Labs 10/06/2131010/07/218 10/08/21 0344 WBC 8.8 12.1* 9.9 HGB 8.1* 8.2* 8.1* HCT 25.4* 25.6* 25.3* MCV 84.7 84.3 83.4 PLT 187 236 292 Recent Labs 10/06/2131010/07/218 10/08/21 0344 NA 138 138 135 K [...] Patel : 1955 AGE: 66 y.o. Room/Bed: [facility]/2432 Admission Date: 10/01/2021 11:48 PM Consult Date: 10/05/21 Visit Date: 10/08/2021 Reason for Endocrine Consult: T2IDDM Provider/Team Requesting Consult: [facility] PCP: Moe Meyer MD Outpt [employer] Refrigerated Truck Driver: no ASSESSMENT: Type 2 diabetes with hyperglycemia [...] Systems As above OBJECTIVE: Vitals: 10/07/21 1444 10/07/21 2000 10/08/21 0343 10/08/21 0815 BP: (!) 130/57 (!) [...] LDL TSH: No results found for: TSH, J2UUFUJ, O9IBINC, THYROIDAB, FT3, T4FREE Radiology reportsas per the Radiologist Radiology: CT Head WO Contrast Result Date: 10/02/2021 Patient Name: KIMBERLY PATEL Computed Tomography ACCESSION EXAM DATE/TIME PROCEDURE ORDERING PROVIDER [id number] 10/02/2021 02:[address] Head or Brain w/o QUIQUE ROBERTS Contrast CPT code 62580 Reason For Exam (CT Head or Brain [...] Radiology ACCESSION EXAM DATE/TIME PROCEDURE ORDERING PROVIDER [id number] 10/02/2021 00:32 EST CR Chest Portable 58QUIQUE HAYDEN CPT code 82412 Reason For Exam (CR Chest Portable) sepsis Report CLINICAL INDICATION: sepsisCOMPARISON: None TECHNIQUE: Single portable AP radiograph of the chest. FINDINGS: LUNGS/PLEURA:Clear with no acute infiltrate or effusion. No pneumothorax. The trachea is midline. MEDIASTINUM:Heart size and mediastinal contours are normal. VASCULARITY: Normal BONES:Unremarkable IMPRESSION: Lungs clear with no acute infiltrate or effusion. Report Dictated on --- Final --- Dictating Physician: MD MORORW YUN ROBERT Signed Date and Time: 10/02/2021 0:37 am Signed by: MD MORROW YUN ROBERT Transcribed Date and Time: 10/02/2021 0:39 CT Abdomen Pelvis Wo Contrast Result Date: 10/02/2021 Patient Name: KIMBERLY PATEL Computed Tomography ACCESSION EXAM DATE/TIME PROCEDURE ORDERING PROVIDER [id number] 10/02/2021 02:[address] Abdomen/Pelvis (No 58QUIQUE HAYDEN PO, No IV) CPT code 67124 Reason For Exam (CT Abdomen/Pelvis (No PO, [...] this note. * Saniya Oshea APRN - FINANCIAL DEVELOPER - 10/08/2021 9:00 AM EST Images from [...] mg Oral BID LABS: CBC: Recent Labs 10/06/2131010/07/2141710/08/21343 WBC 8.8 12.1* 9.9 RBC 3.00* 3.04* 3.03* HGB 8.1* 8.2* 8.1* HCT 25.4* 25.6* 25.3* MCV 84.7 84.3 83.4 RDW 16.1* 15.9* 16.0* PLT 187 236 292 BMP: Recent Labs 10/06/2131010/07/2141710/08/21343 NA 138 138 135 [...] PROCAL 9.92 10/06/2021 Objective: Vitals: BP (!) 141/65 Pulse 79 Temp 97.9 F (36.6 C) (Temporal) Resp 16 Ht 5' 4.02" (1.626 m) Wt 286 lb 14.4 oz [...] care of her at home; updated CM. [facility] Division of Hospitalist Medicine Inpatient [...] and overnight issues are reviewed Objective/ Vitals: 10/06/21 2014 10/07/21 0751 10/07/21 1059 10/07/21 1123 BP: 94/78 [...] nonoliguric, BP soft No acute need for ROTO MIXER OPERATOR at this time Volume status: euvolemia Upuc [...] us with any questions or concerns. Hema Giron APRN, FINANCIAL DEVELOPER [facility] [phone] Attending Supervising Physician's Attestation Statement I discussed [...] Patel : 1955 AGE: 66 y.o. Room/Bed: [address] [place], [place] [address] Admission Date: 10/01/2021 11:48 PM Consult Date: 10/05/21 Visit Date: 10/07/2021 Reason for Endocrine Consult: T2IDDM Provider/Team Requesting Consult: IMS PCP: Moe Meyer MD [employer]pt [employer]ated Truck Driver: no ASSESSMENT: Type 2 diabetes with hyperglycemia [...] data in the 24 hours ending 10/07/21 1002 Diet: ADULT DIET; Regular; 4 carb choices [...] 1939 10/06/21 0800 10/06/21 1125 10/06/21 1628 10/06/21 2006 10/07/21 0537 POCGLU 187* 115* 168* 100 89 123* 149* 112* HgbA1C: No results for input(s): LABA1C in the last 72 hours. Hepatic: No results for input(s): ALKPHOS, ALT, AST, PROT, BILITOT, BILIDIR, LABALBU in the last 72 hours. Lipids: No results for input(s): CHOL, TRIG, HDL, LDLCALC in the last 72 hours. Invalid input(s): LDL TSH: No results found for: TSH, H3KNPNP, U5VWSEW, THYROIDAB, FT3, T4FREE Radiology reportsas per the Radiologist Radiology: CT Head WO Contrast Result Date: 10/02/2021 Patient Name: KIMBERLY PATEL Computed Tomography ACCESSION EXAM DATE/TIME PROCEDURE ORDERING PROVIDER [id number] 10/02/2021 02:[address] Head or Brain w/o QUIQUE ROBERTS Contrast CPT code 21224 Reason For Exam (CT Head or Brain [...] Radiology ACCESSION EXAM DATE/TIME PROCEDURE ORDERING PROVIDER [id number] 10/02/2021 00:32 EST CR Chest Portable QUIQUE ROBERTS CPT code 68629 Reason For Exam (CR Chest Portable) sepsis [...] Tomography ACCESSION EXAM DATE/TIME PROCEDURE ORDERING PROVIDER [id number] 10/02/2021 02:[address] Abdomen/Pelvis (No 5816 -MANOJQUIQUE PO, No IV) CPT code 35470 Reason For Exam (CT Abdomen/Pelvis (No PO, [...] this note. * Saniya Oshea APRN - FINANCIAL DEVELOPER - 10/07/2021 9:53 AM EST Images from the original note were not included. Hospitalist Progress Note 10/07/2021 9:54 AM Subjective: Admit Date: 10/01/2021 PCP: Moe Meyer MD Room#: 243/2432 Interval History: Was able to sit at [...] Units SubCUTAneous Dinner LABS: CBC: Recent Labs 10/05/2123410/06/2131010/07/218 WBC 10.3 8.8 12.1* RBC 2.99* 3.00* 3.04* HGB 8.1* 8.1* 8.2* HCT 25.5* 25.4* 25.6* MCV 85.3 84.7 84.3 RDW 16.2* 16.1* 15.9* PLT 171 187 236 BMP: Recent Labs 10/05/2123410/05/2123410/05/21 0659 10/06/2131010/07/21417 NA 139 -- -- 138 138 K [...] (36.9 C) (Temporal) Resp 20 Ht 5' 4.02" (1.626 m) Wt 286 lb 14.4 oz [...] Patel : 1955 AGE: 66 y.o. Room/Bed: [facility]/2432 Admission Date: 10/01/2021 11:48 PM Consult Date: 10/05/21 Visit Date: 10/06/2021 Reason for Endocrine Consult: T2IDDM Provider/Team Requesting Consult: [facility] PCP: Moe Meyer MD Outpt [employer] Refrigerated Truck Driver: no ASSESSMENT: Type 2 diabetes with hyperglycemia [...] hospital protocol. Diet recommendation: restricted carb diet [employer] Refrigerated Truck Driver On-Call: Dr Feliciano - until 5 pm Preferred Method of Communication/Reaching: [employer]. The above physician should be paged w/ questions/concerns about items being managed by Endocrinology Team. If there are any questions or concerns related to the info in this NOTE please page the retirement consultant spa consultant directly. On-Call information can be found in the [employer] Directory. We can also be reached by [employer] communication system. We appreciate the opportunity to [...] into the skin nightly Yes Historical Provider, MD empagliflozin (JARDIANCE) 10 MG tablet Take 10 [...] LDL TSH: No results found for: TSH, D4OHYNL, U1WDAUJ, THYROIDAB, FT3, T4FREE Radiology reportsas per the Radiologist Radiology: CT Head WO Contrast Result Date: 10/02/2021 Patient Name: KIMBERLY PATEL [facility] [id number] Computed Tomography ACCESSION EXAM DATE/TIME PROCEDURE ORDERING PROVIDER [id number] 10/02/2021 02:[address] Head or Brain w/o 58QUIQUE HAYDEN Contrast CPT code 63812 Reason For Exam (CT Head or Brain [...] Radiology ACCESSION EXAM DATE/TIME PROCEDURE ORDERING PROVIDER [id number] 10/02/2021 00:32 EST CR Chest Portable 58QUIQUE HAYDEN CPT code 33298 Reason For Exam (CR Chest Portable) sepsis [...] Tomography ACCESSION EXAM DATE/TIME PROCEDURE ORDERING PROVIDER [id number] 10/02/2021 02:[address] Abdomen/Pelvis (No 58QUIQUE HAYDEN PO, No IV) CPT code 30970 Reason For Exam (CT Abdomen/Pelvis (No PO, [...] Spencer MD - 10/06/2021 2:18 PM EST [facility] Progress Note Subjective/ 66 y.o. [...] warm, moist, no rashes Data/ Recent Labs 10/04/2125710/05/2123410/06/21 031 WBC 16.5* 10.3 8.8 HGB 8.3* 8.1* 8.1* HCT 25.7* 25.5* 25.4* MCV 84.3 85.3 84.7 PLT 178 171 187 Recent Labs 10/04/2125710/04/2125710/05/2123410/05/21 0659 10/06/21 0311 NA [...] nonoliguric, BP soft No acute need for ROTO MIXER OPERATOR at this time Volume status: euvolemia Repeat [...] us with any questions or concerns. Hema Giron APRN, FINANCIAL DEVELOPER [facility] [phone] I have independently seen and assessed the patient and agree with above documented A & P, any variance is noted below Same plan as above Melvin Spencer MD [facility] team * Saniya Oshea APRN - FINANCIAL DEVELOPER - 10/06/2021 10:30 AM EST Images from the original note were not included. Hospitalist Progress Note 10/06/2021 10:30 AM Subjective: Admit Date: 10/01/2021 PCP: Moe Meyer MD Room#: 243/2432 Interval History: No overnight issues. Breathing ok. Wants to go home with her daughter at [place], not SNF. Does c/o significant weakness Per [...] Units SubCUTAneous Dinner LABS: CBC: Recent Labs 10/04/2125710/05/2123410/06/21 0311 WBC 16.5* 10.3 8.8 RBC 3.05* 2.99* 3.00* HGB 8.3* 8.1* 8.1* HCT 25.7* 25.5* 25.4* MCV 84.3 85.3 84.7 RDW 16.3* 16.2* 16.1* PLT 178 171 187 BMP: Recent Labs 10/04/2125710/04/2125710/05/2123410/05/21 0659 10/06/21310 NA 136 -- 139 -- 138 K [...] Date PROCAL 9.10/06/2021 Objective: Vitals: BP (!) 152/70 Pulse 83 Temp 98 F (36.7 C) (Temporal) Resp 20 Ht 5' 4.02" (1.626 m) Wt 286 lb 14.4 oz [...] 10/05/2021 3:24 PM EST Physical Therapy Facility/Department: [facility] Initial Assessment NAME: Kimberly Patel : 1955 Date of Service: 10/05/2021 Discharge Recommendations: Subacute/Fdc Facility PT Equipment Recommendations Equipment Needed: Yes [...] Diagnosis(es): The primary encounter diagnosis was Septicemia ([facility]). Diagnoses of Altered mental status, unspecified altered mental status type and Urinary tract infection without hematuria, site unspecified were also pertinent to this visit. has a past medical history of CHF (congestive heart failure) ([facility]), COPD (chronic obstructive pulmonary disease) ([facility]), and Diabetes mellitus ([facility]). 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 Leisure & Hobbies: NA IADL Comments: NA [...] 1955 Date of Service: 10/05/2021 Discharge Recommendations: Subacute/Fdc Facility, Patient would benefit from continued therapy [...] medical history of CHF (congestive heart failure) ([facility]), COPD (chronic obstructive pulmonary disease) (HCC), and [...] wheel around house) Transfer Assistance: Independent Active Hop Farmer: No Patient's Hop Farmer Info: DAUGHTER Mode of Transportation: SUV Education: NA Occupation: 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 AM-PAC Score AM-PAC Inpatient Daily Activity Raw Score: 13 (10/05/211421) AM-PAC Inpatient ADL T-Scale Score : 32.03 (10/05/211421) ADL Inpatient CMS 0-100% Score: 63.03 (10/05/211421) ADL Inpatient CMS G-Code Modifier : CL (10/05/211421) Goals Short term goals Time Frame for Short term goals: 5 visits Short term goal 1: Pt will complete transfer to [facility] with mod A. Short term goal 2: [...] (!) 147/60 Pulse: 83 82 78 Resp: 18 Temp: 98.3 F (36.8 C) 99.3 F [...] nonoliguric, BP soft No acute need for ROTO MIXER OPERATOR at this time Volume status: close to [...] us with any questions or concerns. Hema Giron APRN, FINANCIAL DEVELOPER [facility] [phone] I have independently seen and assessed the patient and agree with above documented A & P, any variance is noted below Same plan as above Melvin Spencer MD [facility] team * Duyen Paz APRN - FINANCIAL DEVELOPER - 10/05/2021 11:08 AM EST Notified by [...] what she would like for pain, as shehas multiple allergies. Upon entering room, pt was awake, then closed her eyes. Would not open her eyes to her name being called. Will attempt to see later. * DARREL Heránndez CNP - 10/05/2021 10:59 AM EST Progress Note 10/05/2021 10:59 AM Name: Kimberly Patel IP Day: 3 Admit Date: 10/01/2021 11:48 PM PCP: Moe Meyer MD Code Status: Full Code Subjective: Awake and eating breakfast, feels more alert but still "tired". SOB better today. Discussed her refusal of PT / OT. She feels too tired to work with them and is adamant taht she will return home on discharge even if therapy recommends a facility. Lives with daughter. Denies pain, f/c, cp, n/v/d. Physical Examination: PHYSICAL EXAM: Vitals: BP (!) 149/65 Pulse 82 Temp 99.3 F (37.4 C) (Temporal) Resp 18 Ht 5' 4.02" (1.626 m) Wt 286 lb 14.4 oz [...] Labs 10/04/21 0258 10/04/21 0258 10/05/21 0235 12/08/21 0659 NA 136 -- 139 -- K [...] that fluids be stopped due to feeling "full of fluid" and her history of heart failure. Last [...] weights CAD - known to cardiology at [facility], chart extensively reviewed - s/p PCI in [...] that pivoting to/from transport cart yesterday twice "wore her out for the rest of the day." Pt provided with multiple options to encourage [...] that pivoting to/from transport cart yesterday twice "wore her out for the rest of the day." Pt provided with multiple options to encourage participation, however continued to decline. Or note, patient has declined to participate in therapy assessments 3x this admission. Will continue to follow and re-attempt as appropriate. Jaky Hayes, PT * Odalys AVERY Godinez, LD - 10/04/2021 1:19 PM EST Comprehensive [...] Referral and appointments to be made by [phone] 2. 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 and AMS) Weight Loss: No significant weight loss Body Fat Loss: Unable to assess (deferred) Muscle Mass Loss: Unable to assess (deferred) Fluid Accumulation: No significant fluid accumulation Psychological Operations Specialist Strength: Not Performed Estimated Daily Nutrient Needs: Energy (kcal): 4417-0299 (11-14 kcal/kg CBW); Weight Used for Energy Requirements: Current (129 kg) Protein (g): 65-82 (1.2-1.5 g protien/kg IBW); Weight Used for Protein Requirements: Eugene (54.45 kg) Fluid (ml/day): per MD; Method Used for Fluid Requirements: Other (Comment) Nutrition Related Findings: Edward score=15. No edema noted. Medications: zosyn, lasix, PPI, IMDUR,insulin. Elevated WBC (16.5), BUN(57), Creatinine (2.65), BGL (225->161->155->132) Wounds: Wound Consult Pending Current Nutrition Therapies: ADULT DIET; Regular; 4 carb choices (60 gm/meal); Low Fat/Low Chol/High Fiber/CLARENCE Anthropometric Measures: Height: 5' 4.02" (162.6 cm) Current Body Weight: 287 lb 1.6 oz (130.2 kg) (10/04/21) Admission Body Weight: 300 lb (136.1 kg) (stated 10/01/21) Usual Body Weight: 280 lb (127 kg) (noted 08/26/21 per EMR review) Eugene Body Weight: 120 lbs; % Eugene Body Weight 239.3 % BMI: 49.3 BMI [...] Contact: 2430 * Duyen Paz APRN - FINANCIAL DEVELOPER - 10/04/2021 9:37 AM EST Progress Note 10/04/2021 9:37 AM Name: Kimberly Patel IP Day: 2 Admit Date: 10/01/2021 11:48 PM PCP: Moe Meyer MD Code Status: Full Code Subjective: More short of breath today. Feels tired. Denies pain, f/c, cp, n/v/d. Physical Examination: PHYSICAL EXAM: Vitals: BP 119/68 Pulse 82 Temp 98.7 F (37.1 C) (Temporal) Resp 18 Ht 5' 4" (1.626 m) Wt 284 lb 6.4 oz [...] that fluids be stopped due to feeling "full of fluid" and her history of heart failure. Last [...] weights CAD - known to cardiology at [facility], chart extensively reviewed - s/p PCI in [...] as able. Shea Johnson OT * Duyen N DARREL Paz - FINANCIAL DEVELOPER - 10/03/2021 10:31 AM EST Progress Note [...] (36.2 C) (Temporal) Resp 18 Ht 5' 4" (1.626 m) Wt 287 lb 5 oz [...] 60 Assessment and Plan: Sepsis - UTI, 1/2 BC 10/02/21 + for E. Coli - lactic acid on admission 3.2 >> 2.0 >> 1.8 >> 0.9 - VSS - legionella, strep pna negative - procal 10/02/21 75.82 - broad spectrum atbx with vanc / zosyn for now, narrow pending sensitivities - pt requested that fluids be stopped due to feeling "full of fluid" and her history of heart failure. Last [...] weights CAD - known to cardiology at [facility], chart extensively reviewed - s/p PCI in [...] at bedside was 519 reported by nursing program coordinator. Attempted two sticks for cmp phlebotomy without success, LIQUOR STORES AND AGENCIES SUPERVISOR attempted two as well. Left message for ROTO MIXER OPERATOR nurse to try and access lab on difficult stick patient. In the meantime, patient stable and lantus, Humalog administered for pt. to cover elevated glucose. Will recheck prior to lunch. IMS Physician will be notified * Duyen Paz APRN - FINANCIAL DEVELOPER - 10/02/2021 10:02 AM EST Same day, no bill Pt BS is > 500, states she did not take her insulin yesterday. Requesting Lasix, "I feel full". Discussed with attending, Dr. Lai - transfer [...] compression to her lower extremities possibly some homebound teacher weight compression socks or LILIANA hose would [...] is significant for COPD. * Austyn Brady RPH - 10/02/2021 9:11 AM EST Pharmacy Note Vancomycin Consult Kimberly Patel is a 66 y.o. female ordered Vancomycin for Sepsis; consult received from Dr. Knutson to manage therapy. Patient Active Problem List Diagnosis UTI (urinary tract infection) Allergies: Hydromorphone hcl, Metformin, Metformin hcl, Morphine, Ondansetron, Ondansetron hcl, Hydromorphone, and Penicillins Recent Labs 10/02/21 0030 BUN 47* Recent Labs 10/02/21 0030 CREATININE 2.31* Recent Labs 10/02/21 0029 WBC 14.2* Ht Readings from Last 1 Encounters: 10/01/21 5' 4" (1.626 m) Wt Readings from Last 1 [...] follow. documented in this encounterSUMMA Work Phone: 1(578) 470-506112-14-2021 Hospital Discharge instructions* Discharge Instr - Activity* [...] at most local grocery stores, pharmacies, and chain [employer]-stores. If you have any questions about your diet or nutrition, call the hospital and ask for the dietitian. Diabetic Diet * Discharge Instr - Lab* Zelda Salazar LPN - 10/08/2021 4:56 PM EST Your physician has ordered skilled home care services for you. Your home care will be provided by: [facility] [phone] [facility] [phone] * Discharge Instr - ANN* Saleem Carrasco RN - 10/11/2021 9:56 AM EST Continuity of Care Form Patient Name: Kimberly Patel : 1955 Admit date: 10/01/2021 Discharge date: Code Status Order: Full Code Advance Directives: Admitting Physician: Darius Knutson MD PCP: Moe Meyer MD Discharging Nurse: Discharging Hospital Unit/Room#: 243/2432 Discharging Unit Phone Number: Emergency Contact: No [...] (36.3 C) (Temporal) Resp 18 Ht 5' 4" (1.626 m) Wt 285 lb 9.6 oz (129.5 kg) SpO2 100% BMI 49.02 kg/m Last documented pain score (0-10 scale): Pain Level: 0 Last Weight: Wt Readings from Last 1 Encounters: 10/11/21 285 lb 9.6 oz (129.5 kg) Mental Status: oriented IV Access: - None Nursing Mobility/ADLs: Walking Dependent Transfer Assisted Bathing Assisted Dressing Assisted Toileting Assisted Feeding Independent Watch Supervisor Independent Med Delivery whole Wound Care Documentation [...] select all that are sent with patient): Glasses RN SIGNATURE: CASE MANAGEMENT/SOCIAL WORK SECTION Inpatient Status Date: 10/02/2021 Readmission Risk Assessment Score: Readmission Risk Risk of Unplanned Readmission: 17 Discharging to Facility/ Agency Name: [facility] Address: [address] [place] [address] Dialysis Facility (if applicable) Name: Address: Dialysis Schedule: Phone: Fax: Sales Clerk Supervisor/Fire Investigation Lieutenant signature: PHYSICIAN SECTION Prognosis: Good Condition at Discharge: Stable Rehab Potential (if transferring to Rehab): Good Recommended Labs or Other Treatments After Discharge: BMP, CBC in 2 days Physician Certification: I certify the above information and transfer of Kimberly Patel is necessary for the continuing treatment of the diagnosis listed and that she requires Fdc Facility for less 30 days. Update Admission H&P: No change in H&P PHYSICIAN SIGNATURE: * Attachments The following attachments cannot be sent through Care Everywhere. * Diabetes: Carb Counting and Eating Well: General Info (Nigerian) * Diabetes: Counting Carbohydrates (Nigerian) * Sepsis (Nigerian) * Renal Failure: Acute (Nigerian) * CARBOHYDRATES: GENERAL INFO (FIJIAN) [facility] Work Phone: [phone]) 670-547612-14-2021 NoteDischarge Summary Kimberly Patel : 1955 ADMIT [...] 3 times daily (with meals) [employer] [place] 31G X 6 MM [facility] Generic drug: Insulin Pen Needle 1 each [...] drug: Dulaglutide Where to (more content not included)...[facility]* Diagnosis Septicemia (HCC)- Primary Unspecified septicemia Altered mental status, unspecified altered mental status type Urinary tract infection without hematuria, site unspecified documented in this encounter [employer] Phone: Evaluation note* Diagnosis Acute congestive heart failure, unspecified heart failure type (HCC) [facility] Diagnosis Type 2 diabetes mellitus with diabetic polyneuropathy, with long-term current use of insulin (HCC) [facility]* Diagnosis Type 2 diabetes mellitus with diabetic polyneuropathy, with long-term current use of insulin (HCC)- Primary [facility]* Diagnosis Primary hypertension- Primary Unspecified essential hypertension Mixed hyperlipidemia Coronary arteriosclerosis in standing rock artery Coronary atherosclerosis of standing rock coronary artery Chronic diastolic congestive heart failure (HCC) Chronic diastolic heart failure DIYA (obstructive sleep apnea) Obstructive sleep apnea (adult) (pediatric) [facility] Diagnosis Type 2 diabetes mellitus with diabetic polyneuropathy, with long-term current use of insulin (HCC)- Primary Medication management Encounter for long-term (current) use of other medications [facility] Diagnosis Type 2 diabetes mellitus with diabetic polyneuropathy, with long-term current use of insulin (HCC) [facility]* Diagnosis Type 2 diabetes mellitus with diabetic polyneuropathy, with long-term current use of insulin (HCC)- Primary [facility]* Diagnosis Type 2 diabetes mellitus with diabetic polyneuropathy, with long-term current use of insulin (HCC)- Primary Stage 3b chronic kidney disease (HCC) Chronic respiratory failure with hypoxia (HCC) Chronic respiratory failure Restrictive lung disease Other diseases of lung, not elsewhere classified Chronic heart failure with preserved ejection fraction (HFpEF) (HCC) Morbid obesity with BMI of 45.0-49.9, adult (HCC) Morbid obesity Recurrent UTI (urinary tract infection) Urinary tract infection, site not specified Primary hypertension Unspecified essential hypertension Coronary artery disease involving standing rock heart without angina pectoris, unspecified vessel or [...] Slow transit constipation [facility]* Diagnosis Recurrent UTI (urinary tract infection)- Primary Urinary tract infection, site not specified Type 2 diabetes mellitus with diabetic polyneuropathy, with long-term current use of insulin (HCC) Chronic heart failure with preserved ejection fraction (HFpEF) (HCC) DDD (degenerative disc disease), lumbar Degeneration of lumbar or lumbosacral intervertebral disc Type 2 diabetes mellitus with diabetic polyneuropathy, with long-term current use of insulin (HCC)- Primary [facility]* Diagnosis Type 2 diabetes mellitus with diabetic polyneuropathy, with long-term current use of insulin (HCC)- [facility] Diagnosis Type 2 diabetes mellitus with diabetic polyneuropathy, with long-term current use of insulin (HCC)- Primary [facility] Diagnosis Urinary tract infection with hematuria, site unspecified- Primary Acute kidney injury superimposed on CKD (HCC) documented in this encounter [facility] Work Phone: Evaluation note* Diagnosis Type 2 diabetes mellitus with diabetic polyneuropathy, with long-term current use of insulin (HCC)- Primary [facility] Diagnosis Chronic obstructive pulmonary disease, unspecified COPD type (HCC) Type 2 diabetes mellitus with diabetic polyneuropathy, with long-term current use of insulin (HCC)- Primary [facility]* Diagnosis Type 2 diabetes mellitus with [...] fraction (HFpEF) (HCC) Coronary artery disease involving standing rock coronary artery of standing rock heart without angina pectoris Stage 3b chronic kidney disease (HCC) Elevated TSH Nonspecific abnormal results of thyroid function study [facility] Diagnosis Congestive heart failure, unspecified HF chronicity, unspecified heart failure type (HCC)- Primary [facility]* Diagnosis Cellulitis of right lower extremity- Primary Cellulitis and abscess of leg, except foot Rash Rash and other nonspecific skin eruption Chronic diastolic congestive heart failure (HCC) Chronic diastolic heart failure Type 2 diabetes mellitus with diabetic polyneuropathy, with long-term current use of insulin (HCC) Stage 3b chronic kidney disease (HCC) [facility]* Diagnosis Type 2 diabetes mellitus with diabetic polyneuropathy, with long-term current use of insulin (HCC) documented [facility]* Diagnosis Type 2 diabetes mellitus with diabetic polyneuropathy, with long-term current use of insulin (HCC) [facility] Diagnosis Chronic heart failure with preserved ejection fraction (HFpEF) (HCC) [facility] Diagnosis Ecthyma- Primary Other specified local [...] debility Debility, unspecified [facility]* Diagnosis DDD (degenerative disc disease), lumbar- Primary Degeneration of lumbar or lumbosacral intervertebral disc Spondylolisthesis of lumbar region Acquired spondylolisthesis [facility]* Diagnosis Congestive heart failure, unspecified HF chronicity, unspecified heart failure type ([facility]) [I50.9 (ICD-10-CM)]- Primary [facility]* Diagnosis Recurrent UTI (urinary tract infection) Urinary tract infection, site not specified [facility]* Diagnosis Ecthyma Other specified local infections of skin and subcutaneous tissue [facility]* Diagnosis Recurrent UTI (urinary tract infection)- Primary Urinary tract infection, site not specified Bullous rash Rash and other nonspecific skin eruption Stage 3b chronic kidney disease (HCC) Type 2 diabetes mellitus with diabetic polyneuropathy, with long-term current use of insulin (HCC) Acute on chronic diastolic CHF (congestive heart failure) (HCC) Acute on chronic diastolic heart failure Chronic respiratory failure with hypoxia ([facility]) Chronic respiratory failure [facility] Diagnosis Acute on chronic diastolic CHF (congestive heart failure) (HCC)- Primary Acute on chronic diastolic heart failure [facility]* Diagnosis Ecthyma Other specified local infections of skin and subcutaneous tissue [facility]* Diagnosis Neuropathy- Primary Mononeuritis of unspecified site [facility]* Diagnosis Ecthyma Other specified local infections of skin and subcutaneous tissue [facility]* Diagnosis Immobility- Primary Other ill-defined conditions [facility]* Diagnosis Ecthyma Other specified local infections of skin and subcutaneous tissue [facility] noteNo assessment information availableWKettering [facility] Work Phone: Evaluation note* Diagnosis Encounter for support and coordination of transition of care- Primary documented in this encounter [facility]* Diagnosis Type 2 diabetes mellitus with diabetic polyneuropathy, with long-term current use of insulin ([facility]) documented in this encounter [facility]* Diagnosis DIYA (obstructive sleep apnea)- Primary Obstructive sleep apnea (adult) (pediatric) documented in this encounter [facility]* Diagnosis Bilateral leg edema- Primary Edema documented in this encounter [facility]* Diagnosis Acute on chronic diastolic CHF (congestive heart failure) ([facility]) Acute on chronic diastolic heart failure documented in this encounter [facility]* Diagnosis Sphenoid sinusitis, unspecified chronicity- Primary Bilateral lower extremity edema Sphenoid sinusitis, unspecified chronicity Fever, unspecified fever cause Delirium Other alteration of consciousness Irritant contact dermatitis due to incontinence of both feces and urine Acute cystitis without hematuria Pressure injury of buttock, stage 2, unspecified laterality ([facility]) UTI (urinary tract infection) Urinary tract infection, site not specified documented in this encounter [facility] note* Diagnosis Encephalopathy acute- Primary Unspecified encephalopathy Transient alteration of awareness Lower urinary tract infectious disease Urinary tract infection, site not specified UTI (urinary tract infection) Urinary tract infection, site not specified Edema, unspecified type Edema of right upper arm UTI (urinary tract infection) Urinary tract infection, site not specified documented in this encounter [facility] for referral (narrative)* Diagnostic Procedure Only (Routine) - Authorized Specialty Diagnoses / Procedures Referred By Lalitha mark Referred To Contact US IMAGING Diagnoses Bilateral leg edema Procedures US DVT LOWER BILAT DUP-SCAN XTR VEINS COMPLETE BILATERAL STUDY Agustin Barahona APRN.CNP [address] [address] Us Imaging Referral ID Status Reason Start Date Expiration Date Visits Requested Visits Authorized [id number] Authorized Auto-Generat ed Referral 08/02/2022 09/01/2023 1 [facility] Consultation (Routine) - Pending Review Specialty Diagnoses / Procedures Referred By Lalitha mark Referred To Contact Wound Care Diagnoses Irritant contact dermatitis due to incontinence of both feces and urine Procedures MI OFFICE/OUTPATIENT NEW HIGH MDM 60 MINUTES Manisha Tao, DARREL Blue CNP [address] [place] [address] Sb Op Wnd Ostomy Hbo [address] [place] [address] Referral ID Status Reason Start Date Expiration Date Visits Requested Visits Authorized [id number] Pending Review Specialty Services Required 02/22/2024 02/21/2025 1 1 [facility] for referral (narrative)No reason for referral information availableWKettering Memorial Hospital Work Phone: Summary Purpose Family History [...] Documents on File Type Date Recorded Patient In Mold Coater Expl anation Advance Directive(s) 09/19/2021 2:15 AM [...] Documents on File Type Date Recorded Patient In Mold Coater Expl anation Advance Directive(s) 09/19/2021 2:15 AM [...] Documents on File Type Date Recorded Patient In Mold Coater Expl anation Advance Directive(s) 04/10/2022 10:35 AM [...] By Lalitha t Referred To Contact Diagnoses Type 2 diabetes mellitus with diabetic polyneuropathy, with long-term current use of insulin (HCC) Chronic respiratory failure with hypoxia (HCC) Coronary artery disease involving standing rock heart without angina pectoris, unspecified vessel or lesion type Requires assistance with activities of daily living (ADL) Weakness of both legs Procedures CONSULT TO [facility] Frankie Deng MD [address] [facility], [address] [place] [id number] [facility] Care [address] [place] [address] Referral ID Status Reason Start Date Expiration Date Visits Requested Visits Authorized [id number] Pending Review PCP Requested Referral 03/22/2022 06/20/2022 1 1 Specialty Diagnoses / Procedures Referred By Contac t Referred To Contact Dermatology Diagnoses Ecthyma Procedures CONSULT TO DERMATOLOGY OFFICE/OUTPATIENT [facility] 60-74 MINUTES Agustin Barahona APRN.FINANCIAL DEVELOPER [address] [facility] [address] [place] [address] Referral ID Status Reason Start Date Expiration Date Visits Requested Visits Authorized [id number] Pending Review PCP Requested Referral 2 2023 1 1 Specialty Diagnoses / Procedures Referred By Contac t Referred To Contact US IMAGING Diagnoses Leg swelling Procedures US DVT LOWER BILAT DUP-SCAN XTR VEINS COMPLETE BILATERAL STUDY Agustin Barahona APRN.FINANCIAL DEVELOPER [address] [facility] [address] [place] [address] Us Imaging Referral ID Status Reason Start Date Expiration Date Visits Requested Visits Authorized [id number] Pending Review Auto-Generat ed Referral 2 09/15/2023 1 1 Specialty Diagnoses / Procedures Referred By Contac t Referred To Contact Pain Management Diagnoses DDD (degenerative disc disease), lumbar Spondylolisthesis of lumbar region Procedures CONSULT TO PAIN MGT Agustin Barahona APRN.FINANCIAL DEVELOPER [address] [facility] [address] [place] [address] Referral ID Status Reason Start Date Expiration Date Visits Requested Visits Authorized [id number] Ref Not Required PCP Requested Referral 2 08/28/2023 1 1 Specialty Diagnoses / Procedures Referred By Contac t Referred To Contact Diagnoses Immobility Procedures PRIMARY CARE SOCIAL WORK CONSULT Agustin Barahona APRN.FINANCIAL DEVELOPER [address] [facility] [address] [place] [address] Referral ID Status Reason Start Date Expiration Date Visits Requested Visits Authorized [id number] Ref Not Required PCP Requested Referral 11/09/2022 02/07/2023 1 1 Specialty Diagnoses / Procedures Referred By Contfely t Referred To Contact Diagnoses DIYA (obstructive sleep apnea) Procedures CONSULT TO SLEEP MEDICINE - ADULT Agustin Barahona APRN.[facility] [address] [facility] [address] [place] [address] Referral ID Status Reason Start Date Expiration Date Visits Requested Visits Authorized [id number] Ref Not Required PCP Requested Referral 06/26/2022 [...] Complaint and Reason for Visit Chief Complaint FPC LAB WOR K Chief Complaint LABWORK FPC LAB WORK Chief Complaint LABWORK FPC LAB WORK FPC LABWORK Chief Complaint LABWORK FPC LAB WORK FPC LABWORK FPC LABWORK Chief Complaint LABWORK FPC LAB WORK FPC LABWORK FPC LABWORK FPC LAB WORK FPC LABWORK Chief Complaint LABWORK FPC LAB WORK FPC LABWORK FPC LABWORK FPC LAB WORK FPC LABWORK FPC LABWORK Chief Complaint LABWORK FPC LAB WORK FPC LABWORK FPC LABWORK FPC LAB WORK FPC LABWORK LABWORK FPC LABWORK Chief Complaint LABWORK FPC LAB WORK FPC LABWORK FPC LABWORK FPC LAB WORK FPC LABWORK LABWORK LABWORK FPC LABWORK Chief Complaint LABWORK FPC LAB WORK FPC LABWORK FPC LABWORK FPC LAB WORK FPC LABWORK LABWORK LABWORK FPC LABWORK LABWORK Chief Complaint LABWORK FPC LAB WORK FPC LABWORK FPC LABWORK FPC LAB WORK FPC LABWORK LABWORK LABWORK FPC LABWORK LABWORK LABWORK Chief Complaint LABWORK FPC LAB WORK FPC LABWORK FPC LABWORK FPC LAB WORK FPC LABWORK LABWORK LABWORK FPC LABWORK LABWORK LABWORK FPC LAB WORK FPC LABWORK Chief Complaint LABWORK FPC LAB WORK FPC LABWORK FPC LABWORK FPC LAB WORK FPC LABWORK LABWORK LABWORK FPC LABWORK LABWORK LABWORK FPC LAB WORK FPC LABWORK LABWORK Chief Complaint LABWORK FPC LAB WORK FPC LABWORK FPC LABWORK FPC LAB WORK FPC LABWORK LABWORK LABWORK FPC LABWORK LABWORK LABWORK FPC LAB WORK FPC LABWORK LABWORK FPC LABWORK Chief Complaint FPC LABWORK FPC LABWORK FPC LAB WORK FPC LABWORK LABWORK LABWORK FPC LABWORK LABWORK LABWORK FPC LAB WORK FPC LABWORK LABWORK FPC LABWORK FPC LAB WORK Chief Complaint FPC LABWORK FPC LAB WORK FPC LABWORK LABWORK LABWORK FPC LABWORK LABWORK LABWORK FPC LAB WORK FPC LABWORK LABWORK FPC LABWORK FPC LABWORK FPC LAB WORK Chief Complaint FPC LAB WOR K FPC LABWORK LABWORK LABWORK FPC LABWORK LABWORK LABWORK FPC LAB WORK FPC LABWORK LABWORK FPC LABWORK FPC LABWORK FPC LAB WORK LABWORK Chief Complaint FPC LAB WOR K FPC LABWORK LABWORK LABWORK FPC LABWORK LABWORK LABWORK FPC LAB WORK FPC LABWORK LABWORK FPC LABWORK FPC LABWORK FPC LAB WORK LABWORK LABWORK Chief Complaint LABWORK FPC LABWORK FPC LABWORK FPC LAB WORK LABWORK LABWORK LABWORK Chief Complaint FPC LAB WOR K LABWORK LABWORK LABWORK LABWORK FPC LAB WORK Chief Complaint LABWORK LABWORK FPC LAB WORK LABWORK FPC LAB WORK Chief Complaint FPC LAB WOR K LABWORK Chief Complaint FPC LAB WOR K LABWORK LABWORK Chief Complaint Admit Date FPC LAB WORK September 17 4:00am FPC LAB WORK October 02, 2024 5:00am FPC LAB WORK October 09 5:00am LABWORK December 19, 2024 5:00am Chief Complaint Admit Date FPC LAB WORK October 09 5:00am LABWORK December 19, 2024 5:00am FPC LAB WORK January 19, 2025 5 :00am Chief Complaint Admit Date LABWORK December 19, 2024 5:00am FPC LAB WORK January 19, 2025 5 :00am FPC LAB WORK February 12, 2025 5 :00am Additional Source Comments INFORMATION SOURCE (unrecogn ized section and content) DATE CREATED AUTHOR 03/14/2020 [facility] ([place]) DATE CREATED AUTHOR AUTHOR'S ORGANIZ ATION 05/19/2020 [facility] [place] DATE CREATED AUTHOR AUTHOR'S ORGANIZ ATION 08/19/2021 [facility] DATE CREATED AUTHOR AUTHOR'S ORGANIZ ATION 06/12/2022 [facility] DATE CREATED AUTHOR AUTHOR'S ORGANIZ ATION 12/01/2022 [facility] DATE CREATED AUTHOR AUTHOR'S ORGANIZ ATION 08/12/2023 [facility] DATE CREATED AUTHOR AUTHOR'S ORGANIZ ATION 03/30/2024 [facility] DATE CREATED AUTHOR AUTHOR'S ORGANIZ ATION 08/31/2025 [facility] Reason for Visit (unrecogniz ed section [...] TELEPHONE EVALUATION 5-10 MIN VIDEO PRIMARY EST SelfMD Yennifer Laura A, GUM MIXER.FINANCIAL DEVELOPER [address] [facility] [address] [place] [address] Referral ID Status Reason Start Date Expiration Date Visits Re quested Visits Authorized [id number] Closed 10/29/2021 10/28/2022 1 1 Reason Comments ak HFC swelling Reason Comments Launch Check Out - Other Discharged from pharmD services Reason Comments Patient Question Medication Reason Comments Orders Appointment update Reason Comments Appointment Reason Comments Results Labs done at ED Reason Comments Rash Reason Onset Date Comments Contract Paralegal- Other 08/17/2022 PCC Chart review Reason Onset Date Comments Contract Paralegal- Other 08/17/2022 Primary Care Coordination Intake Attempt Reason Comments Patient Update Leg swelling Reason Onset Date Comments Patient Update 08/26/2022 Reason Onset Date Comments Transition Of Care 08/28/2022 [facility] 08/22- TCM Reason Comments Consult PAIN [...] Onset Date Comments Transition Of Care 11/09/2022 Speed 10/28-11/08/22 TCM Reason Onset Date Comments Transition [...] unspecified chronicity Procedures . Shmuel Trevino MD [address] [place] [address] [facility] [address] [place] [phone] Referral ID Status Reason Start Date Expiration Date Visits Re quested Visits Authorized [id number] 1 1 Reason Comments Altered Mental Status PER FACILITY, PT S TARTED WITH CONFUSION AND HALLUCINATIONS AT [place], [place] FOR UTI PRESENT Specialty Diagnoses / Procedures Referred By Contfely t Referred To Contact Diagnoses Transient alteration of awareness Lower urinary tract infectious disease UTI (urinary tract infection) Encephalopathy acute Edema, unspecified type Edema of right upper arm Procedures .. Eboni Fletcher MD [address] [place] [address] [facility] [address] [place] [phone] Referral ID Status Reason Start Date Expiration Date Visits Re quested Visits Authorized [id number] 1 1 Ordered Prescriptions (unrec ognized section [...] (3 times per day), First dose on Sun10/08/21 at 1400, For 7 days 0014 (Given - Provider: Moe Castrejon RN)0604 (Given - Provider: Moe Castrejon RN)1316 (Given - Provider: Carmelita Mccord RN)2221 (Given - Provider: Natali Mcclellan RN) 0644 (Given - Provider: Natali Mcclellan RN)1419 (Given - Provider: Saleem Carrasco RN)2146 (Given - Provider: Natali Mcclellan RN) 0527 (Given - Provider: Natali Mcclellan, ROYCE)1401 (Given - Provider: Saleem Carrasco RN)2200 (Due) [...] RN)2221 (Given - Provider: Natali Mcclellan RN) 0643 (Given - Provider: Natali Mcclellan, ROYCE)1419 (Given - Provider: Saleem Carrasco RN)2145 (Given - Provider: Natali Mcclellan, ROYCE) 0527 (Given - Provider: Natali Mcclellan, RN)1401 (Given - Provider: Saleem Carrasco, ROYCE)2200 (Due) insulin glargine (LANTUS) injection vial 25 [...] RN) 0837 (Given - Provider: Saleem Carrasco RN)1401 (Given - Provider: Saleem Carrasco RN)1700 [...] Carrasco RN) 0838 (Given - Provider: Saleem Carrasco RN)1401 (Given - Provider: Saleem Carrasco RN)1700 (Due) isosorbide mononitrate (IMDUR) extended release tablet 30 mg 30 mg, Oral, DAILY, First dose on Sun10/02/21 at 1545, Do not crush or chew. 1007 (Given - Provider: Carmelita Mccord RN) 0844 (Given - Provider: Saleem Carrasco RN) 0830 (Given - Provider: Saleem Carrasco, RN) losartan (COZAAR) tablet 50 mg 50 [...] Carmelita Mccord RN)2147 (Given - Provider: Natali Mcclellan RN) 0851 (Given - Provider: Saleem Carrasco, ROYCE)2145 (Given - Provider: Natali Mcclellan, ROYCE) 0836 (Given - Provider: Saleem Carrasco RN)2100 (Due) ranolazine (RANEXA) extended release tablet 1,000 mg 1,000 mg, Oral, 2 TIMES DAILY, First dose on 10/02/21 at 2100, Do not crush or break. 0013 (Given - Provider: Moe Castrejon RN)1007 (Given - Provider: Carmelita Mccord RN)2221 (Given - Provider: Natali Mcclellan RN) 0843 (Given - Provider: Saleem Carrasco, RN)2146 (Given - Provider: Natali Mcclellan RN) [...] For 2 doses 2146 (Given - Provider: Naatli Mcclellan RN) 0829 (Given - Provider: Saleem [...] F (38 C), Starting on Sun10/02/21 at 0606, Administer if oral route cannot be used. acetaminophen (TYLENOL) tablet 650 mg(Linked Group 1) 650 mg, Oral, EVERY 6 HOURS PRN, Pain Mild (1-3), Fever, For temp greater than 100.4 F (38 C), Starting on 10/02/21 at 06, Maximum dose of acetaminophen is 4000 mg from all sources in 24 hours. dextrose 5 % solution 100 mL/hr, IntraVENous, PRN, Low blood sugar, Starting on Sun10/02/21 at 605, Start infusion following administration of dextrose 50% [...] have IV access., Starting on Sun10/02/21 at 605, After administration, attempt intravenous access and start D5W at 100 mL/hr. Repeat blood glucose in 15 minutes x2 and notify provider. glucose (GLUTOSE) 40 % oral gel 15 g 15 g, Oral, PRN, Low blood sugar, Starting on Sun10/02/21 at 605, If blood glucose less than 50 mg/dL [...] Dinh RN) 0628 (Given - Provider: Brandi Dinh RN)1400 (Due)2200 (Due) insulin glargine (LANTUS) injection vial 28 Units 28 Units, SubCUTAneous, 2 TIMES DAILY, First dose on Sun04/30/22 at 2100, Until Discontinued 1013 (Given - Provider: Janelle Michel RN)2016 (Given - Provider: Ann Moran RN) 0816 (Given - Provider: Susan Garcia RN)2048 (Given - Provider: Brandi Dinh, RN) 0815 (Given - Provider: Susan Garcia [...] - Reason: Patient/family refused)1735 (Given - Provider: aJnelle Michel RN) 0813 (Given - Provider: Susan [...] Reason: Patient/family refused - Comment: bs [phone]) 2099 (Due) insulin lispro (HUMALOG) injection vial 12 [...] 0758 (Given - Provider: Susan Garcia RN) 0628 (Given - Provider: Brandi Dinh, ROYCE) potassium [...] RN)2015 (Given - Provider: Ann Moran RN) 0812 (Given - Provider: Susan Garcia RN)2047 (Given - Provider: Brandi Dinh, ROYCE) 122 (Given - Provider: Susan Garcia RN)2100 (Due) ranolazine (RANEXA) extended release tablet 1,000 mg 1,000 mg, Oral, 2 TIMES DAILY, First dose on 04/30/22 at 2100, Until Discontinued, Do not crush or break. 1028 (Given - Provider: Janelle Michel RN)2015 (Given - Provider: Ann Moran RN) 0758 (Given - Provider: Susan Garcia RN)2047 (Given - Provider: Brandi Dinh, ROYCE) 08 (Given - Provider: Susan Garcia RN)2100 (Due) sodium chloride flush 0.9 % [...] 24 hours. 1003 (Given - Provider: Janelle Michel RN) dextrose 5 % solution 100 mL/hr, [...] g 15 g, Oral, PRN, Starting on Sun04/30/222010, Until Discontinued, Low blood sugar, If blood [...] Saleem Carrasco RN)2113 (Given - Provider: Paula Tamayo RN) 09 (Given - Provider: Mina Tillman RN)2033 (Given [...] Carrasco RN) 905 (Given - Provider: Mina Tillman, ROYCE) 1054 (Given - Provider: Kimberley Hair, RN) ranolazine (Ranexa) 12 hr tablet 1,000 mg 1,000 mg, Oral, 2 times daily, First dose on Sun02/22/24 at 0900, Do not crush, chew, or split., Indications: Stable Angina Pectoris 922 (Given - Provider: Saleem Carrasco RN)2113 (Given - Provider: Paula Tamayo, ROYCE) 905 (Given - Provider: Mina Tillman, ROYCE)2033 (Given - Provider: Elodia Rivera RN) 1051 (Given - Provider: Kimberley Hair, ROYCE) senna-docusate sodium (Senokot-S) 8.6-50 MG tablet 1 tablet 1 tablet, Oral, 2 times daily, First dose (after last modification) on Sun02/23/24 at 2100, Indications: Constipation 923 (Given - Provider: Saleem Carrasco RN)2113 (Given - Provider: Paula Tamayo, ROYCE) 905 (Given - Provider: Mina Tillman, ROYCE)2033 (Not Given - Provider: Elodia Rivera RN [...] breath, Starting on Margy 02/21/24 at 2140 lidocaine PF (Xylocaine) 1 % injection (COMPLETED) As needed, Starting on Sun02/27/24 at 1045, Intraprocedure 1045 (Given - Provider: Olga Damon PA-C) naloxone (Narcan) injection 0.4 mg 0.4 mg, IntraVENous, Every 5 min PRN, opioid reversal, respiratory depression, Starting on Sun02/22/24 at 0355, +++ For RR <10, pinpoint pupils, over sedation for opioid reversal - MUST notify retirement consultant provider immediately after first dose, may give [...] Carrasco RN) 0319 (Given - Provider: Paula Tamayo, ROYCE)1005 (Given - Provider: Mina Tillman, ROYCE)2034 (Given [...] 0831 (Given - Provider: Enedelia Nunez RN) 923 (Given - Provider: Erica Conley, ROYCE) insulin glargine (Lantus) injection 25 Units 25 Units, SubCUTAneous, 2 times daily, First dose (after last modification) on [facility] 03/08/24 at 0900, Indications: Type 2 Diabetes Mellitus 09 (Not Given - Provider: Enedelia Nunez RN - Reason: Other - Comment: hold per dr. talamantes)2008 (Given - Provider: Celso Wong RN) 924 (Given - Provider: Erica Conley RN) insulin glargine (Lantus) injection 50 Units (CANCELED) [...] 0830 (Given - Provider: Enedelia Nunez RN) 09 (Given - Provider: Erica Conley RN) linaGLIPtin [...] refused)2118 (Given - Provider: Jeannine James RN) 832 (Given - Provider: Enedelia Nunez RN)2018 (Given - Provider: Celso Wong RN) 929 (Given - Provider: Erica Conley RN) metoprolol succinate XL (Toprol-XL) 24 hr tablet 25 mg 25 mg, Oral, Daily, First dose on Margy 03/06/24 at 0900, Do not crush or chew., Indications: Heart Failure 1145 (Given - Provider: Esther Fuller LPN - Comment: Patient sleeping / refused) 829 (Given - Provider: Enedelia Nunez RN) 925 (Given - Provider: Erica Conley RN) mometasone-formoterol (Dulera 200) 200-5 MCG/ACT inhaler 2 puff 2 puff, Inhalation, 2 times daily, First dose on Margy 03/06/24 at 0800, Rinse mouth with water after use to reduce aftertaste and incidence of candidiasis. Do not swallow. 1145 (Given - Provider: Esther Fuller LPN - Comment: Patient sleeping / refused)2118 (Given - Provider: Jeannine James RN) 832 (Given - Provider: Enedelia Nunez RN)1999 (Not Given - Provider: Celso Wong RN - Reason: Patient/family refused) 929 (Given - Provider: Erica Conley RN) ranolazine (Ranexa) 12 hr tablet 1,000 mg 1,000 mg, Oral, 2 times daily, First dose on Margy 03/06/24 at 0900, Do not crush, chew, or split., Indications: Stable Angina Pectoris 1144 (Given - Provider: Esther Fuller LPN - Comment: Patient sleeping / refused)2119 (Given - Provider: Jeannine James RN) 830 (Given - Provider: Enedelia Nunez RN)2008 (Given - Provider: Celso Wong, ROYCE) 923 (Given - Provider: Erica Conley RN) senna-docusate sodium (Senokot-S) 8.6-50 MG tablet 1 tablet 1 tablet, Oral, 2 times daily, First dose on Margy 03/06/24 at 0900, Indications: Constipation 1145 (Given - Provider: Esther Fuller LPN - Comment: Patient sleeping / refused)2099 (Not Given - Provider: Jeannine James RN - Reason: Patient/family refused) 830 (Given - Provider: Enedelia Nunez, ROYCE)2008 (Given [...] line care, Starting on Margy 03/06/24 at 1857, For occluded catheter ports. Instill [...] Blood sugar less than 70mg/dL, Starting on Margy 03/06/24 at 0300, Start infusion following administration of dextrose 50% or glucagon. dextrose 50 % solution 12.5 g 12.5 g, IntraVENous, PRN, low blood sugar, Blood glucose less than 70 mg/dL and patient NOT ALERT or NPO., Starting on Margy 03/06/24 at 0300, If patient does not [...] As needed, low blood sugar, Starting on Margy 03/06/24 at 0300, If blood glucose less than [...] Dermatitis 1326 (Given - Provider: Enedelia Nunez, ROYCE) naloxone (Narcan) injection 0.4 mg 0.4 mg, IntraVENous, Every 5 min PRN, opioid reversal, respiratory depression, Starting on Maryg 03/06/24 at 0301, +++ For RR <10, pinpoint pupils, over sedation for opioid reversal - MUST notify retirement consultant provider immediately after first dose, may give IM or SQ if no IV access +++ oxyCODONE-acetaminophen (Percocet) 5-325 MG per tablet 1 tablet 1 tablet, Oral, Every 6 hours PRN, severe pain (7-10), Starting on Margy [...] Status Dates Lucy Quick Attending Provider Active Operators School Manager Relationship Specialty Start Date End Date Moe Meyer MD [address] [place] [address] PCP - General 10/02/21 Operators School Manager Relationship Specialty Start Date End Date Maryan Rick, DO 1 [facility] [address] [place], [place] [id number] Referring Internal Medicine 07/06/21 Susan Cuello, [facility] [address] [place] [address] Pharmacist Primary Care 08/05/21 Sejal Calvin, GUM MIXER.FINANCIAL DEVELOPER [address] [facility] [place] [id number] Referring Family Practice 12/04/21 Operators School Manager Relationship Specialty Start Date End Date Maryan Rick, DO [address] [facility] [address] [place] [address] Referring Internal Medicine 07/06/21 Susan Cuello, [facility] [address] [place] [address] Pharmacist Primary Care 08/05/21 Sejal Calvin, GUM MIXER.FINANCIAL DEVELOPER [address] [place] [address] Referring Family Practice 12/04/21 Operators School Manager Relationship Specialty Start Date End Date Maryan Rick DO [address] [facility] [address] [place] [address] Referring Internal Medicine 07/06/21 Susan Cuello, [facility] [address] [place] [address] Pharmacist Primary Care 08/05/21 Sejal Calvin, GUM MIXER.FINANCIAL DEVELOPER [address] [facility] [address] [address] Referring Family Practice 12/04/21 Operators School Manager Relationship Specialty Start Date End Date Moe Meyer MD [address] [place] [id number] PCP - General Family Practice 02/27/22 Maryan Rick, DO [address] [facility] [address] [place] [address] Referring Internal Medicine 07/06/21 Susan Cuello, [facility] [address] [place] [address] Pharmacist Primary Care 08/05/21 Sejal Calvin, GUM MIXER.FINANCIAL DEVELOPER [address] [place] [address] Referring Family Practice 12/04/21 Operators School Manager Relationship Specialty Start Date End Date Moe Meyer MD [address] [address] PCP - General Family Practice 02/27/22 Maryan Rick, DO [address] [place] [address] Referring Internal Medicine 07/06/21 MinSusan, [facility] [address] [place] [address] Pharmacist Primary Care 08/05/21 Sejal Calvin, GUM MIXER.FINANCIAL DEVELOPER [address] [place] [address] Referring Family Practice 12/04/21 Operators School Manager Relationship Specialty Start Date End Date Moe Meyer MD [address] [place] [address] PCP - General Family Practice 02/27/22 Maryan Rick DO [address] [place] [address] Referring Internal Medicine 07/06/21 MinSusan, [facility] [address] [place] [address] Pharmacist Primary Care 08/05/21 Sejal Calvin, GUM MIXER.FINANCIAL DEVELOPER [address] [place] [address] Referring Family Practice 12/04/21 Operators School Manager Relationship Specialty Start Date End Date Moe Meyer MD [address] [address] PCP - General Family Practice 02/27/22 Maryan Rick, DO [address] [place] [place] [address] Referring Internal Medicine 07/06/21 Susan Cuello, [facility] [address] [place] [address] Pharmacist Primary Care 08/05/21 Sejal Calvin, GUM MIXER.FINANCIAL DEVELOPER [address] [place] [address] Referring Family Practice 12/04/21 Operators School Manager Relationship Specialty Start Date End Date Moe Meyer MD [address] [place] [address] PCP - General Family Practice 02/27/22 Maryan Rick, DO 1 [facility] [address] [place] [address] Referring Internal Medicine 07/06/21 Susan Cuello, [facility] [address] [place] [address] Pharmacist Primary Care 08/05/21 Sejal Calvin, GUM MIXER.FINANCIAL DEVELOPER 1 [place] [address] Referring Family Practice 12/04/21 Operators School Manager Relationship Specialty Start Date End Date Moe Myeer MD [address] [address] PCP - General Family Practice 02/27/22 Maryan Rick DO 1 [facility] [address] [place] [address] Referring Internal Medicine 07/06/21 Susan Cuello, [facility] [address] [place] [address] Pharmacist Primary Care 08/05/21 Sejal Calvin, GUM MIXER.FINANCIAL DEVELOPER [address] [place] [address] Referring Family Practice 12/04/21 Operators School Manager Relationship Specialty Start Date End Date Moe Meyer MD [address] [place] [address] PCP - General Family Practice 02/27/22 Maryan Rick, DO [address] [place] [address] Referring Internal Medicine 07/06/21 Susan Cuello, [facility] [address] [place] [address] Pharmacist Primary Care 08/05/21 Sejal Calvin, GUM MIXER.FINANCIAL DEVELOPER [address] [place] [address] Referring Family Practice 12/04/21 Operators School Manager Relationship Specialty Start Date End Date Moe Meyer MD [address] [place] [address] PCP - General Family Practice 02/27/22 Maryan Rick, DO [address] [place] [address] [facility] [address] [place] [address] Referring Internal Medicine 07/06/21 Susan Cuello, [facility] [address] [place] [address] Pharmacist Primary Care 08/05/21 Sejal Calvin, GUM MIXER.FINANCIAL DEVELOPER [address] [place] [address] Referring Family Practice 12/04/21 Operators School Manager Relationship Specialty Start Date End Date Moe Meyer MD [address] [place] [address] PCP - General Family Practice 02/27/22 Maryan Rick, DO [address] [facility] [address] [place] [address] Referring Internal Medicine 07/06/21 Susan Cuello, [facility] [address] [place] [address] Pharmacist Primary Care 08/05/21 Sejal Calvin, GUM MIXER.FINANCIAL DEVELOPER [address] [place] [address] Referring Family Practice 12/04/21 Operators School Manager Relationship Specialty Start Date End Date Moe Meyer MD [address] [place] [address] PCP - General Family Practice 02/27/22 Maryan Rick, DO 1 [facility] [address] [place] [address] Referring Internal Medicine 07/06/21 MinSusan, [facility] [address] [place] [address] Pharmacist Primary Care 08/05/21 Sejal Calvin, GUM MIXER.FINANCIAL DEVELOPER 1 [place] [address] Referring Family Practice 12/04/21 Operators School Manager Relationship Specialty Start Date End Date Frankie Deng MD [address] [place] [address], [address] [place] [address] PCP - General Gerontology 04/04/22 Maryan Rick, DO [address] [facility] [address] [place] [address] Referring Internal Medicine 07/06/21 Susan Cuello, [facility] [address] [place] [address] Pharmacist Primary Care 08/05/21 Sejal Calvin, GUM MIXER.FINANCIAL DEVELOPER [address] [facility] [place] [address] Referring Family Practice 12/04/21 Operators School Manager Relationship Specialty Start Date End Date Frankie Deng MD [address] [place] [address], [address] [place] [address] PCP - General Gerontology 04/04/22 Maryan Rick DO 1 [place] [facility] [address] [place] [address] Referring Internal Medicine 07/06/21 Susan Cuello, [facility] [address] [place] [address] Pharmacist Primary Care 08/05/21 Sejal Calvin, GUM MIXER.FINANCIAL DEVELOPER [address] [place] [address] Referring [facility] Practice 12/04/21 Operators School Manager Relationship Specialty Start Date End Date Frankie Deng MD [address] [place] [address], [address] [place] [address] PCP - General Gerontology 04/04/22 Maryan Rick, DO [address] [facility] [address] [place] [address] Referring Internal Medicine 07/06/21 uSsan Cuello, [facility] [address] [place] [address] Pharmacist Primary Care 08/05/21 Sejal Calvin, GUM MIXER.FINANCIAL DEVELOPER [address] [place] [address] Referring Family Practice 12/04/21 Operators School Manager Relationship Specialty Start Date End Date Frankie Deng MD [address] [facility], [address] [place] [address] PCP - General Gerontology 04/04/22 Maryan Rick, DO 1 [facility] [address] [place], [place] [address] Referring Internal Medicine 07/06/21 Susan Cuello, [facility] [address] [place] [address] Pharmacist Primary Care 08/05/21 Sejal Calvin, GUM MIXER.FINANCIAL DEVELOPER 1 [place], [place] [id number] Referring Family Practice 12/04/21 Operators School Manager Relationship Specialty Start Date End Date Frankie Deng MD [address] [facility] [address] [address] PCP - General Geriatric Medicine 05/02/22 Operators School Manager Relationship Specialty Start Date End Date Frankie Deng MD [address] [facility], [address] [place] [address] PCP - General Gerontology 04/04/22 Maryan Rick, DO 1 [place] [facility] [address] [place] [address] Referring Internal Medicine 07/06/21 MinSusan, [facility] [address] [place] [address] Pharmacist Primary Care 08/05/21 Sejal Calvin, GUM MIXER.FINANCIAL DEVELOPER 1 [place], [place] [id number] Referring Family Practice 12/04/21 Operators School Manager Relationship Specialty Start Date End Date Frankie Deng MD [address] [facility], [address] [place] [address] PCP - General Gerontology 04/04/22 Maryan Rick, DO 1 [facility] [address] [place], [place] [id number] Referring Internal Medicine 07/06/21 MinSusan, [facility] [address] [place] [address] Pharmacist Primary Care 08/05/21 Sejal Calvin, GUM MIXER.FINANCIAL DEVELOPER 1 [place] [address] Referring Family Practice 12/04/21 Operators School Manager Relationship Specialty Start Date End Date Agustin Barahona, GUM MIXER.FINANCIAL DEVELOPER [address] [facility] [address] [place], [place] [address] PCP - General Family Practice 06/23/22 Maryan Rick, DO 1 [facility] [address] [place] [address] Referring Internal Medicine 07/06/21 MinSusan, [facility] [address] [place] [address] Pharmacist Primary Care 08/05/21 Sejal Calvin, GUM MIXER.FINANCIAL DEVELOPER 1 [place], [place] [id number] Referring Family Practice 12/04/21 Operators School Manager Relationship Specialty Start Date End Date Agustin Barahona, GUM MIXER.FINANCIAL DEVELOPER [address] [facility] [address] [place], [place] [address] PCP - General Family Practice 06/23/22 Maryan Rick, DO [address] [place] [address] Referring Internal Medicine 07/06/21 Susan Cuello [facility] [address] [address] Pharmacist Primary Care 08/05/21 Sejal Calvin, GUM MIXER.FINANCIAL DEVELOPER [address] [place] [address] Referring Family Practice 12/04/21 Operators School Manager Relationship Specialty Start Date End Date Agustin Barahona, GUM MIXER.FINANCIAL DEVELOPER [address] [facility] [address] [place] [address] PCP - General Family Practice 06/23/22 Maryan Rick DO [address] [place] [address] Referring Internal Medicine 07/06/21 Susan Cuello [facility] [address] [place] [address] Pharmacist Primary Care 08/05/21 Sejal Calvin, GUM MIXER.FINANCIAL DEVELOPER [address] [place] [address] Referring Family Practice 12/04/21 Operators School Manager Relationship Specialty Start Date End Date Agustin Barahona, GUM MIXER.FINANCIAL DEVELOPER [address] [facility] [address] [place] [address] PCP - General Family Practice 06/23/22 Maryan Rick DO [address] [place] [address] Referring Internal Medicine 07/06/21 Susan Cuello, [facility] [address] [place] [address] Pharmacist Primary Care 08/05/21 Sejal Calvin, GUM MIXER.FINANCIAL DEVELOPER [address] [place] [address] Referring Family Practice 12/04/21 Operators School Manager Relationship Specialty Start Date End Date Agustin Barahona, GUM MIXER.FINANCIAL DEVELOPER [address] [facility] [address] [place] [address] PCP - General Family Practice 06/23/22 Maryan Rick DO [address] [facility] [address] [place] [address] Referring Internal Medicine 07/06/21 Susan Cuello, [facility] [address] [place] [address] Pharmacist Primary Care 08/05/21 Sejal Calvin, GUM MIXER.FINANCIAL DEVELOPER [address] [place] [address] Referring Family Practice 12/04/21 Operators School Manager Relationship Specialty Start Date End Date Agustin Barahona, GUM MIXER.FINANCIAL DEVELOPER [address] [facility] [address] [place] [address] PCP - General Family Practice 06/23/22 Maryan Rick, DO [address] [facility] [address] [place] [address] Referring Internal Medicine 07/06/21 Susan Cuello, [facility] [address] [place] [address] Pharmacist Primary Care 08/05/21 Sejal Calvin, GUM MIXER.FINANCIAL DEVELOPER [address] [place] [address] Referring Family Practice 12/04/21 Operators School Manager Relationship Specialty Start Date End Date Agustin Barahona, GUM MIXER.FINANCIAL DEVELOPER [address] [facility] [address] [place] [address] PCP - General Family Practice 06/23/22 Maryan Rick, DO [address] [place] [address] [place] [address] Referring Internal Medicine 07/06/21 Sejal Calvin, GUM MIXER.FINANCIAL DEVELOPER [address] [place] [address] Referring Family Practice 12/04/21 Operators School Manager Relationship Specialty Start Date End Date Agustin Barahona, GUM MIXER.FINANCIAL DEVELOPER [address] [facility] [address] [place] [address] PCP - General Family Practice 06/23/22 Maryan Rick, DO [address] [place] [address] [place] [address] Referring Internal Medicine 07/06/21 Sejal Calvin, GUM MIXER.FINANCIAL DEVELOPER [address] [place] [address] Referring Family Practice 12/04/21 Operators School Manager Relationship Specialty Start Date End Date Agustin Barahona, GUM MIXER.FINANCIAL DEVELOPER [address] [facility] [address] [facility] [place] [address] PCP - General Family Practice 06/23/22 Maryan Rick, DO [address] [place] [address] [place] [address] Referring Internal Medicine 07/06/21 Sejal Calvin, GUM MIXER.FINANCIAL DEVELOPER [address] [place] [address] Referring Family Practice 12/04/21 Operators School Manager Relationship Specialty Start Date End Date Agustin Barahona, GUM MIXER.FINANCIAL DEVELOPER [address] [facility] [address] [place] [address] PCP - General Family Medicine 06/23/22 Maryan Rick, DO [address] [place] [address] [place] [address] Referring Internal Medicine 07/06/21 Sejal Calvin, GUM MIXER.FINANCIAL DEVELOPER [address] [place] [address] Referring Family Medicine 12/04/21 Operators School Manager Relationship Specialty Start Date End Date Agustin Barahona, GUM MIXER.FINANCIAL DEVELOPER [address] [facility] [address] [place] [address] PCP - General Family Medicine 06/23/22 Maryan Rick, DO [address] [place] [address] [place] [address] Referring Internal Medicine 07/06/21 Sejal Calvin, GUM MIXER.FINANCIAL DEVELOPER [address] [place] [address] Referring Family Medicine 12/04/21 Operators School Manager Relationship Specialty Start Date End Date Agustin Barahona, GUM MIXER.FINANCIAL DEVELOPER [address] [facility] [address] [facility] [place] [address] PCP - General Family Medicine 06/23/22 Maryan Rick, DO [address] [place] [address] [place] [address] Referring Internal Medicine 07/06/21 Sejal Calvin, GUM MIXER.FINANCIAL DEVELOPER [address] [place] [address] Referring Family Medicine 12/04/21 Operators School Manager Relationship Specialty Start Date End Date Agustin Barahona, GUM MIXER.FINANCIAL DEVELOPER [address] [facility] [address] [place] [address] PCP - General Family Medicine 06/23/22 Maryan Rick, DO [address] [place] [address] [place] [address] Referring Internal Medicine 07/06/21 Sejal Calvin, GUM MIXER.FINANCIAL DEVELOPER [address] [place] [address] Referring Family Medicine 12/04/21 Operators School Manager Relationship Specialty Start Date End Date Agustin Barahona, GUM MIXER.FINANCIAL DEVELOPER [address] [facility] [address] [place] [address] PCP - General Family Medicine 06/23/22 Maryan Rick, DO [address] [place] [address] [place] [address] Referring Internal Medicine 07/06/21 Sejal Calvin, GUM MIXER.FINANCIAL DEVELOPER [address] [place] [address] Referring Family Medicine 12/04/21 Operators School Manager Relationship Specialty Start Date End Date Agustin Barahona, GUM MIXER.FINANCIAL DEVELOPER [address] [facility] [address] [facility] [place] [address] PCP - General Family Medicine 06/23/22 Maryan Rick, DO [address] [place] [address] [place] [address] Referring Internal Medicine 07/06/21 Sejal Calvin, GUM MIXER.FINANCIAL DEVELOPER [address] [place] [address] Referring Family Medicine 12/04/21 Operators School Manager Relationship Specialty Start Date End Date Agustin Barahona, GUM MIXER.FINANCIAL DEVELOPER [address] [facility] [address] [place] [address] PCP - General Family Medicine 06/23/22 Maryan Rick, DO [address] [place] [address] [place] [address] Referring Internal Medicine 07/06/21 Sejal Calvin, GUM MIXER.FINANCIAL DEVELOPER [address] [place] [address] Referring Family Medicine 12/04/21 Operators School Manager Relationship Specialty Start Date End Date Agustin Barahona, GUM MIXER.FINANCIAL DEVELOPER [address] [facility] [address] [place] [address] PCP - General Family Medicine 06/23/22 Maryan Rick, DO [address] [place] [address] [place] [address] Referring Internal Medicine 07/06/21 Sejal Calvin, GUM MIXER.FINANCIAL DEVELOPER [address] [place] [address] Referring Family Medicine 12/04/21 Operators School Manager Relationship Specialty Start Date End Date Agustin Barahona, GUM MIXER.FINANCIAL DEVELOPER [address] [facility] [address] [facility] [place] [address] PCP - General Family Medicine 06/23/22 Maryan Rick, DO [address] [place] [address] [place] [address] Referring Internal Medicine 07/06/21 Sejal Calvin, GUM MIXER.FINANCIAL DEVELOPER [address] [place] [address] Referring Family Medicine 12/04/21 Krupa Aparicio, RN [address] [facility] [address] Primary Care Operators School Manager 08/28/22 11/26/22 Operators School Manager Relationship Specialty Start Date End Date Agustin Barahona, GUM MIXER.FINANCIAL DEVELOPER [address] [facility] [address] [place] [address] PCP - General Family Medicine 06/23/22 Maryan Rick, DO [address] [place] [address] [place] [address] Referring Internal Medicine 07/06/21 Sejal Calvin, GUM MIXER.FINANCIAL DEVELOPER [address] [place] [address] Referring Family Medicine 12/04/21 Krupa Aparicio RN [address] [facility] [address] Primary Care Operators School Manager 08/28/22 11/26/22 Operators School Manager Relationship Specialty Start Date End Date Agustin Barahona, GUM MIXER.FINANCIAL DEVELOPER [address] [facility] [address] [place] [address] PCP - General Family Medicine 06/23/22 Maryan Rick DO [address] [place] [address] [place] [address] Referring Internal Medicine 07/06/21 Sejal Calvin, GUM MIXER.FINANCIAL DEVELOPER [address] [place] [address] Referring Family Medicine 12/04/21 Krupa Aparicio RN [address] [facility] [address] Primary Care Operators School Manager 08/28/22 11/26/22 Operators School Manager Relationship Specialty Start Date End Date Agustin Barahona, GUM MIXER.FINANCIAL DEVELOPER [address] [facility] [address] [place] [address] PCP - General Family Medicine 06/23/22 Maryan Rick, DO [address] [place] [address] [place], [place] [address] Referring Internal Medicine 07/06/21 Sejal Calvin, GUM MIXER.FINANCIAL DEVELOPER [address] [place] [address] Referring Family Medicine 12/04/21 Krupa Aparicio RN [address] [place], [place] [address] Primary Care Operators School Manager 08/28/22 11/26/22 Operators School Manager Relationship Specialty Start Date End Date Agustin Barahona, GUM MIXER.FINANCIAL DEVELOPER 1945 [facility] [address] [place] [address] PCP - General Family Medicine 06/23/22 Maryan Rick DO [address] [place] [address] [facility] [address] [place] [address] Referring Internal Medicine 07/06/21 Sejal Calvin, GUM MIXER.FINANCIAL DEVELOPER [address] [place] [address] Referring Family Medicine 12/04/21 Krupa Aparicio RN [address] [place] [address] Primary Care Operators School Manager 08/28/22 11/26/22 Operators School Manager Relationship Specialty Start Date End Date Agustin Barahona, GUM MIXER.FINANCIAL DEVELOPER [address] [facility] [address] [place] [address] PCP - General Family Medicine 06/23/22 Maryan Rick DO [address] [place] [address] [place] [address] Referring Internal Medicine 07/06/21 Sejal Calvin, GUM MIXER.FINANCIAL DEVELOPER [address] [place] [address] Referring Family Medicine 12/04/21 Krupa Aparicio, ROYCE [address] [place], [place] [id number] Primary Care Operators School Manager 08/28/22 11/26/22 Operators School Manager Relationship Specialty Start Date End Date Agustin Barahona, GUM MIXER.FINANCIAL DEVELOPER [address] [facility] [address] [place] [address] PCP - General Family Medicine 06/23/22 Maryan Rick, DO [address] [place] [address] [place] [address] Referring Internal Medicine 07/06/21 Sejal Calvin, GUM MIXER.FINANCIAL DEVELOPER [address] [place] [address] Referring Family Medicine 12/04/21 Krupa Aparicio RN [address] [place] [address] Primary Care Operators School Manager 08/28/22 11/26/22 Operators School Manager Relationship Specialty Start Date End Date Agustin Barahona, GUM MIXER.FINANCIAL DEVELOPER [address] [facility] [address] [place] [address] PCP - General Family Medicine 06/23/22 Maryan Rick, DO [address] [place] [address] [place] [address] Referring Internal Medicine 07/06/21 Sejal Calvin, GUM MIXER.FINANCIAL DEVELOPER [address] [place] [address] Referring Family Medicine 12/04/21 Krupa Aparicio RN [address] [facility], [place] [id number] Primary Care Operators School Manager 08/28/22 11/26/22 Operators School Manager Relationship Specialty Start Date End Date Agustin Barahona, GUM MIXER.FINANCIAL DEVELOPER [address] [facility] [address] [place] [address] PCP - General Family Medicine 06/23/22 Maryan Rick, DO [address] [place] [address] [facility] [address] [place] [address] Referring Internal Medicine 07/06/21 Sejal Calvin, GUM MIXER.FINANCIAL DEVELOPER [address] [place] [address] Referring Family Medicine 12/04/21 Krupa Aparicio RN [address] [facility], [place] [id number] Primary Care Operators School Manager 08/28/22 11/26/22 Operators School Manager Relationship Specialty Start Date End Date Agustin Barahona, GUM MIXER.FINANCIAL DEVELOPER [address] [facility] [address] [place] [address] PCP - General Family Medicine 06/23/22 Maryan Rick, DO [address] [place] [address] [facility] [address] [place] [address] Referring Internal Medicine 07/06/21 Sejal Calvin, GUM MIXER.FINANCIAL DEVELOPER [address] [place] [address] Referring Family Medicine 12/04/21 Krupa Aparicio RN [address] [place], [place] [phone] Primary Care Operators School Manager 08/28/22 01/29/23 Operators School Manager Relationship Specialty Start Date End Date Agustin Barahona, GUM MIXER.FINANCIAL DEVELOPER [address] [facility] [address] [place] [address] PCP - General Family Medicine 06/23/22 Maryan Rick DO [address] [place] [address] [place] [address] Referring Internal Medicine 07/06/21 Sejal Calvin, GUM MIXER.FINANCIAL DEVELOPER [address] [place] [address] Referring Family Medicine 12/04/21 Krupa Aparicio, ROYCE [address] [place], [place] [id number] Primary Care Operators School Manager 08/28/22 01/29/23 Operators School Manager Relationship Specialty Start Date End Date Agustin Barahona, GUM MIXER.FINANCIAL DEVELOPER [address] [facility] [address] [place] [address] PCP - General Family Medicine 06/23/22 Maryan Rick DO [address] [place] [address] [place] [address] Referring Internal Medicine 07/06/21 Sejal Calvin, GUM MIXER.FINANCIAL DEVELOPER [address] [place] [address] Referring Family Medicine 12/04/21 Krupa Aparicio RN [address] [place] [address] Primary Care Operators School Manager 08/28/22 01/29/23 Operators School Manager Relationship Specialty Start Date End Date Agustin Barahona, GUM MIXER.FINANCIAL DEVELOPER [address] [facility] [address] [place] [address] PCP - General Family Medicine 06/23/22 Maryan Rick DO [address] [place] [address] [place] [address] Referring Internal Medicine 07/06/21 Sejal Calvin, GUM MIXER.FINANCIAL DEVELOPER [address] [place] [address] Referring Family Medicine 12/04/21 Krupa Aparicio, RN [address] [facility] [place] [address] Primary Care Operators School Manager 08/28/22 01/29/23 Operators School Manager Relationship Specialty Start Date End Date Agustin Barahona, GUM MIXER.FINANCIAL DEVELOPER [address] [facility] [address] [place] [address] PCP - General Family Medicine 06/23/22 Maryan Rick DO [address] [place] [address] [place] [address] Referring Internal Medicine 07/06/21 Sejal Calvin, GUM MIXER.FINANCIAL DEVELOPER [address] [place] [address] Referring Family Medicine 12/04/21 Krupa Aparicio RN [address] [facility] [address] Primary Care Operators School Manager 08/28/22 01/29/23 Operators School Manager Relationship Specialty Start Date End Date Agustin Barahona, GUM MIXER.FINANCIAL DEVELOPER [address] [facility] [address] [place] [address] PCP - General Family Medicine 06/23/22 Maryan Rick, DO [address] [place] [address] [place] [address] Referring Internal Medicine 07/06/21 Sejal Calvin, GUM MIXER.FINANCIAL DEVELOPER [address] [place] [address] Referring Family Medicine 12/04/21 Krupa Aparicio RN [address] [place] [address] Primary Care Operators School Manager 08/28/22 01/29/23 Operators School Manager Relationship Specialty Start Date End Date Agustin Barahona, GUM MIXER.FINANCIAL DEVELOPER [address] [facility] [address] [place] [address] PCP - General Family Medicine 06/23/22 Maryan Rick, DO [address] [place] [address] [facility] [address] [place] [address] Referring Internal Medicine 07/06/21 Sejal Calvin, GUM MIXER.FINANCIAL DEVELOPER [address] [place] [address] Referring Family Medicine 12/04/21 Krupa Aparicio, ROYCE [address] [place], [place] [id number] Primary Care Operators School Manager 08/28/22 01/29/23 Operators School Manager Relationship Specialty Start Date End Date Agustin Barahona, GUM MIXER.FINANCIAL DEVELOPER [address] [facility] [address] [place] [address] PCP - General Family Medicine 06/23/22 Maryan Rick, [address] [place] [address] [facility] [address] [place] [address] Referring Internal Medicine 07/06/21 Sejal Calvin, GUM MIXER.FINANCIAL DEVELOPER [address] [place] [address] Referring Family Medicine 12/04/21 Krupa Aparicio RN [address] [place] [address] Primary Care Operators School Manager 08/28/22 01/29/23 Operators School Manager Relationship Specialty Start Date End Date Agustin Barahona, GUM MIXER.FINANCIAL DEVELOPER [address] [facility] [address] [place] [address] PCP - General Family Medicine 06/23/22 Maryan Rick DO [address] [place] [address] [place], [place] [id number] Referring Internal Medicine 07/06/21 Dior Susan, [facility] [address] [facility] [place] [address] Pharmacist Primary Care 08/05/21 07/05/22 Sejal Calvin, GUM MIXER.FINANCIAL DEVELOPER [address] [place] [address] Referring Family Medicine 12/04/21 Krupa Aparicio RN [address] [place], [place] [id number] Primary Care Operators School Manager 08/28/22 01/29/23 Operators School Manager Relationship Specialty Start Date End Date Agustin Barahona, GUM MIXER.FINANCIAL DEVELOPER [address] [facility] [address] [place] [address] PCP - General Family Medicine 06/23/22 Maryan Rick DO [address] [place] [address] [facility] [address] [place] [address] Referring Internal Medicine 07/06/21 Sejal Calvin, GUM MIXER.FINANCIAL DEVELOPER [address] [place] [address] Referring Family Medicine 12/04/21 Krupa Aparicio RN [address] [place] [address] Primary Care Operators School Manager 08/28/22 01/29/23 Operators School Manager Relationship Specialty Start Date End Date Agustin Barahona, GUM MIXER.FINANCIAL DEVELOPER [address] [facility] [address] [place] [address] PCP - General Family Medicine 06/23/22 Maryan Rick DO [address] [place] [address] [facility] [address] [place] [address] Referring Internal Medicine 07/06/21 Sejal Calvin, GUM MIXER.FINANCIAL DEVELOPER [address] [place] [address] Referring Family Medicine 12/04/21 Krupa Aparicio, ROYCE [address] [facility], [place] [id number] Primary Care Operators School Manager 08/28/22 01/29/23 Operators School Manager Relationship Specialty Start Date End Date Agustin Barahona, GUM MIXER.FINANCIAL DEVELOPER [address] [facility] [address] [place] [address] PCP - General Family Medicine 06/23/22 Maryan Rick DO [address] [place] [address] [place] [address] Referring Internal Medicine 07/06/21 Sejal Calvin, GUM MIXER.FINANCIAL DEVELOPER [address] [place] [address] Referring Family Medicine 12/04/21 Krupa Aparicio RN [address] [facility] [address] Primary Care Operators School Manager 08/28/22 01/29/23 Operators School Manager Relationship Specialty Start Date End Date Agustin Barahona, GUM MIXER.FINANCIAL DEVELOPER [address] [facility] [address] [place] [address] PCP - General Family Medicine 06/23/22 Maryan Rick, DO [address] [place] [address] [place] [address] Referring Internal Medicine 07/06/21 Sejal Calvin, GUM MIXER.FINANCIAL DEVELOPER [address] [place] [address] Referring Family Medicine 12/04/21 Krupa Aparicio RN [address] [place] [address] Primary Care Operators School Manager 08/28/22 01/29/23 Operators School Manager Relationship Specialty Start Date End Date Agustin Barahona, GUM MIXER.FINANCIAL DEVELOPER [address] [facility] [address] [place] [address] PCP - General Family Medicine 06/23/22 Maryan Rick, DO [address] [facility] [address] [place], [place] [id number] Referring Internal Medicine 07/06/21 Sejal Calvin, GUM MIXER.FINANCIAL DEVELOPER [address] [place], [place] [id number] Referring Family Medicine 12/04/21 Krupa Aparicio RN [address] [place] [address] Primary Care Operators School Manager 08/28/22 01/29/23 Operators School Manager Relationship Specialty Start Date End Date Lcuy Quick MD [address] [address] PCP - General Internal Medicine 02/06/23 Operators School Manager Relationship Specialty Start Date End Date Lucy Quick MD [address] [facility] [address] [place] [address] PCP - General Internal Medicine 02/06/23 Operators School Manager Relationship Specialty Start Date End Date Lucy Quick MD [address] [facility] [address] [place] [address] PCP - General Internal Medicine 02/06/23 Operators School Manager Relationship Specialty Start Date End Date Lucy Quick MD [address] [facility] [address] [place] [address] PCP - General Internal Medicine 02/06/23 Operators School Manager Relationship Specialty Start Date End Date Lucy Quick MD [address] [place], [place] [id number] PCP - General Internal Medicine 02/06/23 Operators School Manager Relationship Specialty Start Date End Date Lucy Quick [address] [place] [id number] PCP - General Internal Medicine 02/21/24 Operators School Manager Relationship Specialty Start Date End Date Lucy Quick [address] [place] [address] PCP - General Internal Medicine 02/21/24 Team [...] or prosecute any alcohol or drug abuse patient.[facility] HospitalIn the event this information is protected by the Federal Confidentiality of Alcohol and Drug Abuse Patient Records regulations: The Federal rules restrict any use of the information to criminally investigate or prosecute any alcohol or drug abuse patient.[facility] HospitalIn the event this information is protected by the Federal Confidentiality of Alcohol and Drug Abuse Patient Records regulations: The Federal rules restrict any use of the information to criminally investigate or prosecute any alcohol or drug abuse patient.[facility] HospitalIn the event this information is protected by the Federal Confidentiality of Alcohol and Drug Abuse Patient Records regulations: The Federal rules restrict any use of the information to criminally investigate or prosecute any alcohol or drug abuse patient.[facility] HospitalIn the event this information is protected by the Federal Confidentiality of Alcohol and Drug Abuse Patient Records regulations: The Federal rules restrict any use of the information to criminally investigate or prosecute any alcohol or drug abuse patient.[facility] HospitalIn the event this information is protected by the Federal Confidentiality of Alcohol and Drug Abuse Patient Records regulations: The Federal rules restrict any use of the information to criminally investigate or prosecute any alcohol or drug abuse patient.[facility] HospitalIn the event this information is protected by the Federal Confidentiality of Alcohol and Drug Abuse Patient Records regulations: The Federal rules restrict any use of the information to criminally investigate or prosecute any alcohol or drug abuse patient.[facility] HospitalIn the event this information is protected by the Federal Confidentiality of Alcohol and Drug Abuse Patient Records regulations: The Federal rules restrict any use of the information to criminally investigate or prosecute any alcohol or drug abuse patient.[facility] HospitalIn the event this information is protected by the Federal Confidentiality of Alcohol and Drug Abuse Patient Records regulations: The Federal rules restrict any use of the information to criminally investigate or prosecute any alcohol or drug abuse patient.[facility] HospitalIn the event this information is protected by the Federal Confidentiality of Alcohol and Drug Abuse Patient Records regulations: The Federal rules restrict any use of the information to criminally investigate or prosecute any alcohol or drug abuse patient.[facility] HospitalIn the event this information is protected by the Federal Confidentiality of Alcohol and Drug Abuse Patient Records regulations: The Federal rules restrict any use of the information to criminally investigate or prosecute any alcohol or drug abuse patient.[facility] HospitalIn the event this information is protected by the Federal Confidentiality of Alcohol and Drug Abuse Patient Records regulations: The Federal rules restrict any use of the information to criminally investigate or prosecute any alcohol or drug abuse patient.[facility] HospitalIn the event this information is protected by the Federal Confidentiality of Alcohol and Drug Abuse Patient Records regulations: The Federal rules restrict any use of the information to criminally investigate or prosecute any alcohol or drug abuse patient.[facility] HospitalIn the event this information is protected by the Federal Confidentiality of Alcohol and Drug Abuse Patient Records regulations: The Federal rules restrict any use of the information to criminally investigate or prosecute any alcohol or drug abuse patient.[facility] HospitalIn the event this information is protected by the Federal Confidentiality of Alcohol and Drug Abuse Patient Records regulations: The Federal rules restrict any use of the information to criminally investigate or prosecute any alcohol or drug abuse patient.[facility] HospitalIn the event this information is protected by the Federal Confidentiality of Alcohol and Drug Abuse Patient Records regulations: The Federal rules restrict any use of the information to criminally investigate or prosecute any alcohol or drug abuse patient.[facility] HospitalIn the event this information is protected by the Federal Confidentiality of Alcohol and Drug Abuse Patient Records regulations: The Federal rules restrict any use of the information to criminally investigate or prosecute any alcohol or drug abuse patient.[facility] HospitalIn the event this information is protected by the Federal Confidentiality of Alcohol and Drug Abuse Patient Records regulations: The Federal rules restrict any use of the information to criminally investigate or prosecute any alcohol or drug abuse patient.[facility] HospitalIn the event this information is protected by the Federal Confidentiality of Alcohol and Drug Abuse Patient Records regulations: The Federal rules restrict any use of the information to criminally investigate or prosecute any alcohol or drug abuse patient.[facility] HospitalIn the event this information is protected by the Federal Confidentiality of Alcohol and Drug Abuse Patient Records regulations: The Federal rules restrict any use of the information to criminally investigate or prosecute any alcohol or drug abuse patient.[facility] HospitalIn the event this information is protected by the Federal Confidentiality of Alcohol and Drug Abuse Patient Records regulations: The Federal rules restrict any use of the information to criminally investigate or prosecute any alcohol or drug abuse patient.[facility] HospitalIn the event this information is protected by the Federal Confidentiality of Alcohol and Drug Abuse Patient Records regulations: The Federal rules restrict any use of the information to criminally investigate or prosecute any alcohol or drug abuse patient.[facility] HospitalIn the event this information is protected by the Federal Confidentiality of Alcohol and Drug Abuse Patient Records regulations: The Federal rules restrict any use of the information to criminally investigate or prosecute any alcohol or drug abuse patient.[facility] HospitalIn the event this information is protected by the Federal Confidentiality of Alcohol and Drug Abuse Patient Records regulations: The Federal rules restrict any use of the information to criminally investigate or prosecute any alcohol or drug abuse patient.[facility] HospitalIn the event this information is protected by the Federal Confidentiality of Alcohol and Drug Abuse Patient Records regulations: The Federal rules restrict any use of the information to criminally investigate or prosecute any alcohol or drug abuse patient.[facility] HospitalIn the event this information is protected by the Federal Confidentiality of Alcohol and Drug Abuse Patient Records regulations: The Federal rules restrict any use of the information to criminally investigate or prosecute any alcohol or drug abuse patient.[facility] HospitalIn the event this information is protected by the Federal Confidentiality of Alcohol and Drug Abuse Patient Records regulations: The Federal rules restrict any use of the information to criminally investigate or prosecute any alcohol or drug abuse patient.[facility] HospitalIn the event this information is protected by the Federal Confidentiality of Alcohol and Drug Abuse Patient Records regulations: The Federal rules restrict any use of the information to criminally investigate or prosecute any alcohol or drug abuse patient.[facility] HospitalIn the event this information is protected by the Federal Confidentiality of Alcohol and Drug Abuse Patient Records regulations: The Federal rules restrict any use of the information to criminally investigate or prosecute any alcohol or drug abuse patient.[facility] HospitalIn the event this information is protected by the Federal Confidentiality of Alcohol and Drug Abuse Patient Records regulations: The Federal rules restrict any use of the information to criminally investigate or prosecute any alcohol or drug abuse patient.[facility] HospitalIn the event this information is protected by the Federal Confidentiality of Alcohol and Drug Abuse Patient Records regulations: The Federal rules restrict any use of the information to criminally investigate or prosecute any alcohol or drug abuse patient.[facility] HospitalIn the event this information is protected by the Federal Confidentiality of Alcohol and Drug Abuse Patient Records regulations: The Federal rules restrict any use of the information to criminally investigate or prosecute any alcohol or drug abuse patient.[facility] HospitalIn the event this information is protected by the Federal Confidentiality of Alcohol and Drug Abuse Patient Records regulations: The Federal rules restrict any use of the information to criminally investigate or prosecute any alcohol or drug abuse patient.[facility] HospitalIn the event this information is protected by the Federal Confidentiality of Alcohol and Drug Abuse Patient Records regulations: The Federal rules restrict any use of the information to criminally investigate or prosecute any alcohol or drug abuse patient.[facility] HospitalIn the event this information is protected by the Federal Confidentiality of Alcohol and Drug Abuse Patient Records regulations: The Federal rules restrict any use of the information to criminally investigate or prosecute any alcohol or drug abuse patient.[facility] HospitalIn the event this information is protected by the Federal Confidentiality of Alcohol and Drug Abuse Patient Records regulations: The Federal rules restrict any use of the information to criminally investigate or prosecute any alcohol or drug abuse patient.[facility] HospitalIn the event this information is protected by the Federal Confidentiality of Alcohol and Drug Abuse Patient Records regulations: The Federal rules restrict any use of the information to criminally investigate or prosecute any alcohol or drug abuse patient.[facility] HospitalIn the event this information is protected by the Federal Confidentiality of Alcohol and Drug Abuse Patient Records regulations: The Federal rules restrict any use of the information to criminally investigate or prosecute any alcohol or drug abuse patient.[facility] HospitalIn the event this information is protected by the Federal Confidentiality of Alcohol and Drug Abuse Patient Records regulations: The Federal rules restrict any use of the information to criminally investigate or prosecute any alcohol or drug abuse patient.[facility] HospitalIn the event this information is protected by the Federal Confidentiality of Alcohol and Drug Abuse Patient Records regulations: The Federal rules restrict any use of the information to criminally investigate or prosecute any alcohol or drug abuse patient.[facility] HospitalIn the event this information is protected by the Federal Confidentiality of Alcohol and Drug Abuse Patient Records regulations: The Federal rules restrict any use of the information to criminally investigate or prosecute any alcohol or drug abuse patient.[facility] HospitalIn the event this information is protected by the Federal Confidentiality of Alcohol and Drug Abuse Patient Records regulations: The Federal rules restrict any use of the information to criminally investigate or prosecute any alcohol or drug abuse patient.[facility] HospitalIn the event this information is protected by the Federal Confidentiality of Alcohol and Drug Abuse Patient Records regulations: The Federal rules restrict any use of the information to criminally investigate or prosecute any alcohol or drug abuse patient.[facility] HospitalIn the event this information is protected by the Federal Confidentiality of Alcohol and Drug Abuse Patient Records regulations: The Federal rules restrict any use of the information to criminally investigate or prosecute any alcohol or drug abuse patient.[facility] HospitalIn the event this information is protected by the Federal Confidentiality of Alcohol and Drug Abuse Patient Records regulations: The Federal rules restrict any use of the information to criminally investigate or prosecute any alcohol or drug abuse patient.[facility] HospitalIn the event this information is protected by the Federal Confidentiality of Alcohol and Drug Abuse Patient Records regulations: The Federal rules restrict any use of the information to criminally investigate or prosecute any alcohol or drug abuse patient.[facility] HospitalIn the event this information is protected by the Federal Confidentiality of Alcohol and Drug Abuse Patient Records regulations: The Federal rules restrict any use of the information to criminally investigate or prosecute any alcohol or drug abuse patient.[facility] HospitalIn the event this information is protected by the Federal Confidentiality of Alcohol and Drug Abuse Patient Records regulations: The Federal rules restrict any use of the information to criminally investigate or prosecute any alcohol or drug abuse patient.[facility] HospitalIn the event this information is protected by the Federal Confidentiality of Alcohol and Drug Abuse Patient Records regulations: The Federal rules restrict any use of the information to criminally investigate or prosecute any alcohol or drug abuse patient.[facility] HospitalIn the event this information is protected by the Federal Confidentiality of Alcohol and Drug Abuse Patient Records regulations: The Federal rules restrict any use of the information to criminally investigate or prosecute any alcohol or drug abuse patient.[facility] HospitalIn the event this information is protected by the Federal Confidentiality of Alcohol and Drug Abuse Patient Records regulations: The Federal rules restrict any use of the information to criminally investigate or prosecute any alcohol or drug abuse patient.[facility] HospitalIn the event this information is protected by the Federal Confidentiality of Alcohol and Drug Abuse Patient Records regulations: The Federal rules restrict any use of the information to criminally investigate or prosecute any alcohol or drug abuse patient.[facility] HospitalIn the event this information is protected by the Federal Confidentiality of Alcohol and Drug Abuse Patient Records regulations: The Federal rules restrict any use of the information to criminally investigate or prosecute any alcohol or drug abuse patient.[facility] HospitalIn the event this information is protected by the Federal Confidentiality of Alcohol and Drug Abuse Patient Records regulations: The Federal rules restrict any use of the information to criminally investigate or prosecute any alcohol or drug abuse patient.[facility] HospitalIn the event this information is protected by the Federal Confidentiality of Alcohol and Drug Abuse Patient Records regulations: The Federal rules restrict any use of the information to criminally investigate or prosecute any alcohol or drug abuse patient.[facility] HospitalIn the event this information is protected by the Federal Confidentiality of Alcohol and Drug Abuse Patient Records regulations: The Federal rules restrict any use of the information to criminally investigate or prosecute any alcohol or drug abuse patient.[facility] HospitalIn the event this information is protected by the Federal Confidentiality of Alcohol and Drug Abuse Patient Records regulations: The Federal rules restrict any use of the information to criminally investigate or prosecute any alcohol or drug abuse patient.[facility] HospitalIn the event this information is protected by the Federal Confidentiality of Alcohol and Drug Abuse Patient Records regulations: The Federal rules restrict any use of the information to criminally investigate or prosecute any alcohol or drug abuse patient.[facility] HospitalIn the event this information is protected by the Federal Confidentiality of Alcohol and Drug Abuse Patient Records regulations: The Federal rules restrict any use of the information to criminally investigate or prosecute any alcohol or drug abuse patient.[facility] HospitalIn the event this information is protected by the Federal Confidentiality of Alcohol and Drug Abuse Patient Records regulations: The Federal rules restrict any use of the information to criminally investigate or prosecute any alcohol or drug abuse patient.[facility] HospitalIn the event this information is protected by the Federal Confidentiality of Alcohol and Drug Abuse Patient Records regulations: The Federal rules restrict any use of the information to criminally investigate or prosecute any alcohol or drug abuse patient.[facility] HospitalIn the event this information is protected by the Federal Confidentiality of Alcohol and Drug Abuse Patient Records regulations: The Federal rules restrict any use of the information to criminally investigate or prosecute any alcohol or drug abuse patient.[facility] HospitalIn the event this information is protected by the Federal Confidentiality of Alcohol and Drug Abuse Patient Records regulations: The Federal rules restrict any use of the information to criminally investigate or prosecute any alcohol or drug abuse patient.[facility] HospitalIn the event this information is protected by the Federal Confidentiality of Alcohol and Drug Abuse Patient Records regulations: The Federal rules restrict any use of the information to criminally investigate or prosecute any alcohol or drug abuse patient.[facility] HospitalIn the event this information is protected by the Federal Confidentiality of Alcohol and Drug Abuse Patient Records regulations: The Federal rules restrict any use of the information to criminally investigate or prosecute any alcohol or drug abuse patient.[facility] HospitalIn the event this information is protected by the Federal Confidentiality of Alcohol and Drug Abuse Patient Records regulations: The Federal rules restrict any use of the information to criminally investigate or prosecute any alcohol or drug abuse patient.[facility] HospitalIn the event this information is protected by the Federal Confidentiality of Alcohol and Drug Abuse Patient Records regulations: The Federal rules restrict any use of the information to criminally investigate or prosecute any alcohol or drug abuse patient.[facility] HospitalIn the event this information is protected by the Federal Confidentiality of Alcohol and Drug Abuse Patient Records regulations: The Federal rules restrict any use of the information to criminally investigate or prosecute any alcohol or drug abuse patient.[facility] HospitalIn the event this information is protected by the Federal Confidentiality of Alcohol and Drug Abuse Patient Records regulations: The Federal rules restrict any use of the information to criminally investigate or prosecute any alcohol or drug abuse patient.[facility] HospitalIn the event this information is protected by the Federal Confidentiality of Alcohol and Drug Abuse Patient Records regulations: The Federal rules restrict any use of the information to criminally investigate or prosecute any alcohol or drug abuse patient.[facility] HospitalIn the event this information is protected by the Federal Confidentiality of Alcohol and Drug Abuse Patient Records regulations: The Federal rules restrict any use of the information to criminally investigate or prosecute any alcohol or drug abuse patient.[facility] HospitalIn the event this information is protected by the Federal Confidentiality of Alcohol and Drug Abuse Patient Records regulations: The Federal rules restrict any use of the information to criminally investigate or prosecute any alcohol or drug abuse patient.[facility] HospitalIn the event this information is protected by the Federal Confidentiality of Alcohol and Drug Abuse Patient Records regulations: The Federal rules restrict any use of the information to criminally investigate or prosecute any alcohol or drug abuse patient.[facility] HospitalIn the event this information is protected by the Federal Confidentiality of Alcohol and Drug Abuse Patient Records regulations: The Federal rules restrict any use of the information to criminally investigate or prosecute any alcohol or drug abuse patient.[facility] HospitalIn the event this information is protected by the Federal Confidentiality of Alcohol and Drug Abuse Patient Records regulations: The Federal rules restrict any use of the information to criminally investigate or prosecute any alcohol or drug abuse patient.[facility] HospitalIn the event this information is protected by the Federal Confidentiality of Alcohol and Drug Abuse Patient Records regulations: The Federal rules restrict any use of the information to criminally investigate or prosecute any alcohol or drug abuse patient.[facility] HospitalIn the event this information is protected by the Federal Confidentiality of Alcohol and Drug Abuse Patient Records regulations: The Federal rules restrict any use of the information to criminally investigate or prosecute any alcohol or drug abuse patient.[facility] HospitalIn the event this information is protected by the Federal Confidentiality of Alcohol and Drug Abuse Patient Records regulations: The Federal rules restrict any use of the information to criminally investigate or prosecute any alcohol or drug abuse patient.[facility] HospitalIn the event this information is protected by the Federal Confidentiality of Alcohol and Drug Abuse Patient Records regulations: The Federal rules restrict any use of the information to criminally investigate or prosecute any alcohol or drug abuse patient.[facility] HospitalIn the event this information is protected by the Federal Confidentiality of Alcohol and Drug Abuse Patient Records regulations: The Federal rules restrict any use of the information to criminally investigate or prosecute any alcohol or drug abuse patient.[facility] HospitalIn the event this information is protected by the Federal Confidentiality of Alcohol and Drug Abuse Patient Records regulations: The Federal rules restrict any use of the information to criminally investigate or prosecute any alcohol or drug abuse patient.[facility] HospitalIn the event this information is protected by the Federal Confidentiality of Alcohol and Drug Abuse Patient Records regulations: The Federal rules restrict any use of the information to criminally investigate or prosecute any alcohol or drug abuse patient.[facility] HospitalIn the event this information is protected by the Federal Confidentiality of Alcohol and Drug Abuse Patient Records regulations: The Federal rules restrict any use of the information to criminally investigate or prosecute any alcohol or drug abuse patient.[facility] HospitalIn the event this information is protected by the Federal Confidentiality of Alcohol and Drug Abuse Patient Records regulations: The Federal rules restrict any use of the information to criminally investigate or prosecute any alcohol or drug abuse patient.[facility] HospitalIn the event this information is protected by the Federal Confidentiality of Alcohol and Drug Abuse Patient Records regulations: The Federal rules restrict any use of the information to criminally investigate or prosecute any alcohol or drug abuse patient.[facility] HospitalIn the event this information is protected by the Federal Confidentiality of Alcohol and Drug Abuse Patient Records regulations: The Federal rules restrict any use of the information to criminally investigate or prosecute any alcohol or drug abuse patient.[facility] HospitalIn the event this information is protected by the Federal Confidentiality of Alcohol and Drug Abuse Patient Records regulations: The Federal rules restrict any use of the information to criminally investigate or prosecute any alcohol or drug abuse patient.[facility] HospitalIn the event this information is protected by the Federal Confidentiality of Alcohol and Drug Abuse Patient Records regulations: The Federal rules restrict any use of the information to criminally investigate or prosecute any alcohol or drug abuse patient.[facility] HospitalIn the event this information is protected by the Federal Confidentiality of Alcohol and Drug Abuse Patient Records regulations: The Federal rules restrict any use of the information to criminally investigate or prosecute any alcohol or drug abuse patient.[facility] HospitalIn the event this information is protected by the Federal Confidentiality of Alcohol and Drug Abuse Patient Records regulations: The Federal rules restrict any use of the information to criminally investigate or prosecute any alcohol or drug abuse patient.[facility] HospitalIn the event this information is protected by the Federal Confidentiality of Alcohol and Drug Abuse Patient Records regulations: The Federal rules restrict any use of the information to criminally investigate or prosecute any alcohol or drug abuse patient.[facility] HospitalIn the event this information is protected by the Federal Confidentiality of Alcohol and Drug Abuse Patient Records regulations: The Federal rules restrict any use of the information to criminally investigate or prosecute any alcohol or drug abuse patient.[facility] HospitalIn the event this information is protected by the Federal Confidentiality of Alcohol and Drug Abuse Patient Records regulations: The Federal rules restrict any use of the information to criminally investigate or prosecute any alcohol or drug abuse patient.[facility] HospitalIn the event this information is protected by the Federal Confidentiality of Alcohol and Drug Abuse Patient Records regulations: The Federal rules restrict any use of the information to criminally investigate or prosecute any alcohol or drug abuse patient.[facility] HospitalIn the event this information is protected by the Federal Confidentiality of Alcohol and Drug Abuse Patient Records regulations: The Federal rules restrict any use of the information to criminally investigate or prosecute any alcohol or drug abuse patient.[facility] HospitalIn the event this information is protected by the Federal Confidentiality of Alcohol and Drug Abuse Patient Records regulations: The Federal rules restrict any use of the information to criminally investigate or prosecute any alcohol or drug abuse patient.[facility] HospitalIn the event this information is protected by the Federal Confidentiality of Alcohol and Drug Abuse Patient Records regulations: The Federal rules restrict any use of the information to criminally investigate or prosecute any alcohol or drug abuse patient.[facility] HospitalIn the event this information is protected by the Federal Confidentiality of Alcohol and Drug Abuse Patient Records regulations: The Federal rules restrict any use of the information to criminally investigate or prosecute any alcohol or drug abuse patient.[facility] HospitalIn the event this information is protected by the Federal Confidentiality of Alcohol and Drug Abuse Patient Records regulations: The Federal rules restrict any use of the information to criminally investigate or prosecute any alcohol or drug abuse patient.[facility] HospitalIn the event this information is protected by the Federal Confidentiality of Alcohol and Drug Abuse Patient Records regulations: The Federal rules restrict any use of the information to criminally investigate or prosecute any alcohol or drug abuse patient.[facility] HospitalIn the event this information is protected by the Federal Confidentiality of Alcohol and Drug Abuse Patient Records regulations: The Federal rules restrict any use of the information to criminally investigate or prosecute any alcohol or drug abuse patient.[facility] HospitalIn the event this information is protected by the Federal Confidentiality of Alcohol and Drug Abuse Patient Records regulations: The Federal rules restrict any use of the information to criminally investigate or prosecute any alcohol or drug abuse patient.[facility] Goals (unrecognized section and content) Goals may [...] BE BASED ON THE PRIMARY CLINICAL RECORDS. [employer] provides no warranty or guarantee of the accuracy or completeness of information in this document.
[2025-10-02 07:10] LABS: Hematocrit 37.2 % (37-47); Hemoglobin 11.6 g/dL (12.0-15.0); Mean Corp Hgb Conc 31.2 g/dL (32-36); Mean Corpuscular Volume 100.5 fL (81-99); Mean Platelet Vol. 9.0 fl (6.2-12.0); Platelet Count 256 K/mm3 (150-450); RBC Distribution Width CV 13.1 % (11.6-14.6); RBC Distribution Width SD 48.0 fl (35.1-43.9); Red Blood Count 3.70 M/mm3 (4.2-5.4); White Blood Count 8.6 K/mm3 (4.4-11.0)
[2025-10-02 07:44] LABS: AST(SGOT) 17 U/L (<=31); Alanine Aminotransfer ALT/SGPT 21 U/L (<=34); Albumin, Serum 3.2 g/dL (3.4-4.8); Alkaline Phosphatase 60 U/L (35-104); Anion Gap 9 (5-15); BUN 43 mg/dL (4-19); BUN/Creat Ratio 28.4 RATIO (10-20); Calcium,Total 9.4 mg/dL (7.6-11.0); Carbon Dioxide 34.5 mmol/L (21.0-32.0); Chloride 98 mmol/L (98-108); Cholesterol 160 mg/dL (<=200); Globulin 2.2 g/dL (2.2-4.2); Glucose 174 mg/dL (70-99); Low Density Lipoprotein Calc. 88 mg/dL; Potassium 4.5 mmol/L (3.3-5.1); Triglycerides 161 mg/dL; Very Low Density Lipoprotein 32 mg/dL (5-40); Vitamin D,25 Hydroxy 52.9 ng/mL (30-100); cholesterol:hdl ratio screen 3.59
== END ==
LOC: OLS.SANC 05:00
PROVIDERS: Visit Provider Internal Medicine
DX: I10 Essential (primary) hypertension (principal); E11.9 Type 2 diabetes mellitus without complications; M62.81 Muscle weakness (generalized)
CPT/HCPCS: 36415; 80053; 80061; 82306; 85027

== ENCOUNTER → 2025-10-06 | Outpatient (REF) | payer MEDICARE, SELFPAY ==
[2025-10-06 10:48] LABS: Hematocrit 36.2 % (37-47); Hemoglobin 11.3 g/dL (12.0-15.0); Mean Corp Hgb Conc 31.2 g/dL (32-36); Mean Corpuscular Volume 101.7 fL (81-99); Mean Platelet Vol. 9.2 fl (6.2-12.0); Platelet Count 258 K/mm3 (150-450); RBC Distribution Width CV 13.0 % (11.6-14.6); RBC Distribution Width SD 48.9 fl (35.1-43.9); Red Blood Count 3.56 M/mm3 (4.2-5.4); White Blood Count 7.6 K/mm3 (4.4-11.0)
[2025-10-06 10:53] LABS: Anion Gap 11 (5-15); BUN 37 mg/dL (4-19); BUN/Creat Ratio 28.3 RATIO (10-20); Calcium,Total 8.8 mg/dL (7.6-11.0); Carbon Dioxide 31.7 mmol/L (21.0-32.0); Chloride 99 mmol/L (98-108); Glucose 129 mg/dL (70-99); Potassium 4.1 mmol/L (3.3-5.1)
== END ==
LOC: OLS.SANC 05:00
PROVIDERS: Visit Provider Internal Medicine
DX: E11.9 Type 2 diabetes mellitus without complications (principal); I10 Essential (primary) hypertension
CPT/HCPCS: 36415; 80048; 85027